=== PATIENT | male | born 1955 | race Caucasian/White ===

== ENCOUNTER 2023-03-14 18:47 | Observation (INO) | payer MEDICARE, BC, SELFPAY ==
[2023-03-14 18:49] VITALS: BP 171/87; PULSE 94; RESP 18; TEMP 36.8; O2SAT 95; BMI 31.6
--- NOTE | 2023-03-14 19:26 | CT_ITS ---
The [address] [address] Patient Name: TAYLOR MCCLELLAN MRN: [id number] date: 1955 Sex: M Assigned Patient Location: ER Current Patient Location: ED.MAIN Accession/Order Number: [id number] Exam Date: 03/14/2023 20:00 Report Date: 03/14/2023 20:33 At the request of: SOLOMON HUIZAR Procedure: CT lumbar spine wo con EXAM: CT scan of the lumbar spine without contrast. Dose reduction technique used: Automated exposure control and/or adjustment of the mA and/or kV according to patient size and/or use of iterative reconstruction technique. REASON FOR EXAM: weakness COMPARISON: CT scan dated 01/17/2023 FINDINGS: No lumbar spine fractures. Spinal canal catheter fragment or wire. L4-5 right-sided posterior swetha and pedicle screw fusion, hardware is intact. Minimal grade 1 retrolisthesis of L5 on S1. Degenerative changes throughout the lumbar spine without moderate or high-grade spinal canal stenoses. Right L4-5 and L5-S1 moderate neural foraminal stenoses. Remainder unremarkable. IMPRESSION: No acute lumbar spine abnormalities. Electronically authenticated by: SCHUYLER RIVERA Date: 03/14/2023 20:33
[2023-03-14 19:44] LABS: Basophils Absolute Auto 0.1 10^3/uL (0.0-0.1); Basophils Percent Auto 1.4 % (0.2-2.0); Eosinophils Absolute Auto 0.1 10^3/uL (0.0-0.7); Eosinophils Percent Auto 1.8 % (0.9-7.0); Hematocrit 43.5 % (42.0-54.0); Hemoglobin 14.3 g/dL (14.0-18.0); Immature Granulocytes Abs Auto 0.12 10^3/uL (0.00-0.03); Immature Granulocytes Pct Auto 1.5 % (0.0-0.5); Lymphocytes Absolute Auto 2.5 10^3/uL (1.2-3.8); Mean Corpuscular HGB Conc 32.9 g/dL (29.9-35.2); Mean Corpuscular Hemoglobin 29.1 pg (25.9-34.0); Mean Corpuscular Volume 88.4 fL (80.0-94.0); Mean Platelet Volume 11.1 fL (9.5-13.5); Monocytes Absolute Auto 0.8 10^3/uL (0.3-0.8); Monocytes Percent Auto 9.5 % (1.7-12.0); Neutrophils Absolute Auto 4.4 10^3/uL (1.4-6.5); Neutrophils Percent Auto 54.8 % (43.0-75.0); Platelet Count 284 10^3/uL (150-450); Red Blood Count 4.92 10^6/uL (4.70-6.10); Red Cell Distribution Width 13.9 % (11.0-15.0)
[2023-03-14] MEDS: 0.9 % SODIUM CHLORIDE 1,000 ML 1000 ML IV (19:56)
[2023-03-14 20:09] LABS: Alanine Aminotransferase 16 U/L (16-63); Albumin Globulin Ratio 0.8; Albumin Level 3.6 g/dL (3.4-5.0); Alkaline Phosphatase 67 U/L (46-116); Anion Gap 13.1; Aspartate Amino Transferase 17 U/L (15-37); BUN Creatinine Ratio 11.9; Bilirubin Total 0.3 mg/dL (0.2-1.0); Calcium 8.9 mg/dL (8.5-10.1); Chloride 106 mmol/L (98-107); Estimated GFR (African America >60 (>=60); Estimated GFR (Non-African Ame 53 (>=60); Globulin 4.7 g/dL; Glucose 128 mg/dL (74-106); Potassium 4.1 mmol/L (3.5-5.1); Sodium 139 mmol/L (136-145); Total Protein 8.3 g/dL (6.4-8.2)
[2023-03-14 20:30] VITALS: BP 150/97; PULSE 86; RESP 18; O2SAT 97
--- NOTE | 2023-03-14 20:49 | ED_ITS ---
HPI - General Adult General Chief complaint: Back Pain/Injury Stated complaint: BACK PAIN Time Seen by Provider: 03/14/23 19:00 Source: patient Mode of arrival: ambulance Limitations: no limitations History of Present Illness HPI narrative: 67-year-old male presents here with chief complaint of chronic low back pain. He is been seen here multiple times for this in the past. He states hes been walking home with his walker and losing his balance due to weakness. He is brought here by squad. He is tearful. He states his was put in a correction and he's been unable to get any pain medication from his physician. He denies any new injury or trauma but admits to falling several times a day. He is alert and oriented. family members are concerned because he's talked about suicidal ideation. He denies any suicidal ideation to me here today. Patient's is in a correction when he seven unable to care for himself and states been falling. Related Data Home Medications Medication Instructions Recorded Confirmed amitriptyline 50 mg tablet 50 mg PO .qhs 03/14/23 03/14/23 aspirin 81 mg capsule 81 mg PO DAILY 03/14/23 03/14/23 atorvastatin 40 mg tablet mg 03/14/23 brexpiprazole 3 mg tablet (Rexulti) 3 mg PO DAILY 03/14/23 03/14/23 bupropion HCl 150 mg 24 hr tablet, 150 mg PO QDAY 03/14/23 03/14/23 extended release carvedilol 12.5 mg tablet (Coreg) 12.5 mg PO BID 03/14/23 03/14/23 celecoxib 200 mg capsule (Celebrex) 200 mg PO DAILY 03/14/23 03/14/23 clopidogrel 75 mg tablet 75 mg PO QDAY 03/14/23 03/14/23 hydralazine 25 mg tablet 25 mg PO Q8H 03/14/23 03/14/23 lamotrigine 100 mg tablet 200 mg PO QDAY 03/14/23 03/14/23 Allergies Allergy/AdvReac Type Severity Reaction Status Date / Time No Known Drug Allergies Allergy Verified 03/14/23 18:52 Review of Systems ROS Narrative All Systems are negative except as noted/marked.All systems reviewed and otherwise negative Exam Narrative Exam Narrative: Nurses note and vital signs reviewed and patient is not hypoxic. General: The patient appears well and in no apparent distress. Patient is resting comfortably on cart. Skin: Warm, dry, no pallor noted. There is no rash noted. Head: Normocephalic, atraumatic Eye: Normal conjunctiva, no drainage, EOMI. PERRL Ears, Nose, Mouth, and Throat: oral mucosa is moist. Nares patent. Mouth without vesicles. Ear canals patent. Tm's without Erythema Cardiovascular: Regular Rate and Rhythm Respiratory: Patient is in no distress, no accessory muscle use, lungs are clear to auscultation, no wheezing, rales or rhonchi Back: No acute pain to palpation lower lumbar area non-tender, no CVA tenderness bilaterally to percussion. : Normal rectal tone GI: Normal bowel sounds, no tenderness to palpation, no masses appreciated. No rebound, guarding, or rigidity noted. Musculoskeletal: Four out of five bilateral lower extremity strength, no calf pain or tenderness, no swelling. The patient has no evidence of calf tenderness, no pitting edema, symmetrical pulses noted bilaterally Neurological: A&O x4, normal speech Psychiatric: Cooperative Constitutional Vital Signs - 24 hr 03/14/23 18:49 03/14/23 20:30 Temperature 98.2 F Pulse Rate [Monitor] 94 H 86 Respiratory Rate 18 18 Blood Pressure [Left Arm] 171/87 H 150/97 H Pulse Oximetry 95 97 Oxygen Delivery Method Room Air Room Air Course Vital Signs Vital signs: Vital Signs Temperature 98.2 F 03/14/23 18:49 Pulse Rate 94 H 03/14/23 18:49 Respiratory Rate 18 03/14/23 18:49 Blood Pressure 171/87 H 03/14/23 18:49 Pulse Oximetry 95 03/14/23 18:49 Oxygen Delivery Method Room Air 03/14/23 18:49 Temperature 98.2 F 03/14/23 18:49 Pulse Rate 86 03/14/23 20:30 Respiratory Rate 18 03/14/23 20:30 Blood Pressure 150/97 H 03/14/23 20:30 Pulse Oximetry 97 03/14/23 20:30 Oxygen Delivery Method Room Air 03/14/23 20:30 Medical Decision Making MDM Narrative Medical decision making narrative: Patient presented here with a chief complaint of increased falls at home arrived by squad for chief complaint lower back pain. He states he's been unable to get any pain medication from his physicians. ooarrs report shows no new narcotic medication since November. He is a score of three seventy. Patient presented here with chief complaint of weakness multiple falls while at home by himself. Family members are concerned that he said increased falls at home and also increased depression. Patient denies depression here to see evening. CT scan lower lumbar area shows degenerative changes. Patient had good rectal tone no signs of cauda equina here. Due to the fact the patient had multiple falls at home alone he will be admitted to the hospital. We did also talk about rehab facility for him or correction facility until he is stronger. Patient agrees with plan of care. Differential Diagnosis Differential Diagnosis: Falls, weakness, cauda equina, chronic exacerbation of low back pain Medical Records Medical records reviewed: Yes I reviewed the patient's medical records Lab Data Lab results reviewed: Yes I reviewed the patient's lab results Labs: Lab Results 03/14/23 Range/Units 19:25 WBC 8.0 (4.0-11.0) 10^3/uL RBC 4.92 (4.70-6.10) 10^6/uL Hgb 14.3 (14.0-18.0) g/dL Hct 43.5 (42.0-54.0) % MCV 88.4 (80.0-94.0) fL MCH 29.1 (25.9-34.0) pg MCHC 32.9 (29.9-35.2) g/dL RDW 13.9 (11.0-15.0) % Plt Count 284 (150-450) 10^3/uL MPV 11.1 (9.5-13.5) fL Neut % (Auto) 54.8 (43.0-75.0) % Lymph % (Auto) 31.0 (20.5-60.0) % [place] % (Auto) 9.5 (1.7-12.0) % Eos % (Auto) 1.8 (0.9-7.0) % Baso % (Auto) 1.4 (0.2-2.0) % Neut # (Auto) 4.4 (1.4-6.5) 10^3/uL Lymph # (Auto) 2.5 (1.2-3.8) 10^3/uL [place] # (Auto) 0.8 (0.3-0.8) 10^3/uL Eos # (Auto) 0.1 (0.0-0.7) 10^3/uL Baso # (Auto) 0.1 (0.0-0.1) 10^3/uL Abs Immat Gran (auto) 0.12 H (0.00-0.03) 10^3/uL Imm/Tot Granulo (auto) 1.5 H (0.0-0.5) % Sodium 139 (136-145) mmol/L Potassium 4.1 (3.5-5.1) mmol/L Chloride 106 (98-107) mmol/L Carbon Dioxide 24.0 (21.0-32.0) mmol/L Anion Gap 13.1 BUN 16.0 (7.0-18.0) mg/dL Creatinine 1.34 H (0.70-1.30) mg/dL Est GFR ( Amer) >60 (>=60) Est GFR (Non-Af Amer) 53 L (>=60) BUN/Creatinine Ratio 11.9 Glucose 128 H (74-106) mg/dL Calcium 8.9 (8.5-10.1) mg/dL Total Bilirubin 0.3 (0.2-1.0) mg/dL AST 17 (15-37) U/L ALT 16 (16-63) U/L Alkaline Phosphatase 67 (46-116) U/L Total Protein 8.3 H (6.4-8.2) g/dL Albumin 3.6 (3.4-5.0) g/dL Globulin 4.7 g/dL Albumin/Globulin Ratio 0.8 Discharge Plan Discharge Chief Complaint: Back Pain/Injury Clinical Impression: Sciatica, Strain of lumbar region, Fall at home, Weakness Patient Disposition: Admitted as Observation Time of Disposition Decision: 21:18 Condition: Fair
[2023-03-14 22:12] VITALS: BP 140/70; PULSE 86; RESP 16; TEMP 36.9; O2SAT 96
[2023-03-14 22:35] VITALS: BP 148/81; PULSE 87; RESP 16; TEMP 36.8; O2SAT 94; BMI 30.9
--- NOTE | 2023-03-14 23:43 | W.PM.TELEPN ---
Progress Note: Subjective Subjective Interval history: CC: Frequent falls, gait instability HPI: This is a 67 years old white male who presents with above complaints. Patient has known chronic low back pain due to spinal stenosis. He has had surgeries in the past. He has been in this emergency room multiple times for the similar problems. Patient stating that he falls approximately once or twice every week. He is supposed to use a walker but at times forgets to take it. Patient stating that he has been walking at home this time with a walker and, because of generalized weakness, his legs could not longer carry him and he fell. He has been brought in by EMS. Patient was tearful. He is complaining on back pain. He stating that his provider would not give him any pain medications. Patient's family member called in because of concern for depression and possible suicidal ideation. In the emergency room and with conversation with me patient denies any suicidal ideation. He does not have any concrete plan to end his life. Patient is at skilled nursing. Patient unable to care for himself. Exam Narrative Exam Narrative: Physical Exam: Not in distress, pleasant, lucid, cooperative, Head - atraumatic, eyes - pupils equal, round, reactive to light, extra ocular movement intact, MMM Neck - supple, thyroid not enlarged, LN not palpated Lungs - clear to auscultation, no dullness on percussion CVS - heart sounds S1, S2, no additional murmurs gallop, regular rate and rhythm Gastrointestinal?abdomen is soft, non-tender, non-distended, no organomegaly, positive bowel sounds Extremities no clubbing, cyanosis or edema Neurological?cranial nerve II?XII grossly intact, no meningeal signs, no cerebellar signs, no sensory deficit Musculoskeletal - joints, no effusions, ROM preserved Dermatological - the skin dry, warm, no rashes Psychiatric?patient is AAO X3, patient has flat affect Constitutional Vital Signs - 24 hr 03/14/23 18:49 03/14/23 20:30 03/14/23 22:12 Temperature 98.2 F 98.4 F Pulse Rate Pulse Rate [Monitor] 94 H 86 86 Respiratory Rate 18 18 16 Blood Pressure [Left Arm] 171/87 H 150/97 H 140/70 H Pulse Oximetry 95 97 96 Oxygen Delivery Method Room Air Room Air Room Air 03/14/23 22:35 03/14/23 22:35 03/14/23 22:35 Temperature 98.3 F 98.3 F Pulse Rate 87 87 Pulse Rate [Monitor] Respiratory Rate 16 16 Blood Pressure [Left Arm] 148/81 H 148/81 H Pulse Oximetry 94 L 94 L Oxygen Delivery Method Room Air Room Air Room Air Progress Note: Objective Labs Labs: Short CBC 03/14/23 Range/Units 19:25 WBC 8.0 (4.0-11.0) 10^3/uL Hgb 14.3 (14.0-18.0) g/dL Hct 43.5 (42.0-54.0) % Plt Count 284 (150-450) 10^3/uL BMP 03/14/23 19:25 Sodium 139 Potassium 4.1 Chloride 106 Carbon Dioxide 24.0 BUN 16.0 Creatinine 1.34 H Glucose 128 H Calcium 8.9 Liver Function 03/14/23 Range/Units 19:25 Total Bilirubin 0.3 (0.2-1.0) mg/dL AST 17 (15-37) U/L ALT 16 (16-63) U/L Alkaline Phosphatase 67 (46-116) U/L Albumin 3.6 (3.4-5.0) g/dL Progress Note: A&P Assessment and Plan (1) Strain of lumbar region: Assessment and Plan: I am going to monitor this patient on medical floor. Symptoms control as needed. Currently denies a lot of pain in his back. (2) Fall at home: Assessment and Plan: I ordered fall precautions. I ordered evaluation by physical and Occupational Therapy. Patient is to use walker at all the time. (3) Weakness: Assessment and Plan: Most probably related to above. Follow-up with physical therapist for disposition determination (4) Depression: Assessment and Plan: Patient already on I&D at the present. Patient might benefit from follow-up with a psychiatrist for medications adjustment. (5) CAD (coronary artery disease): Assessment and Plan: Currently pain-free. Continue with Plavix. (6) Hypertension: Assessment and Plan: Blood pressure appears to be well controlled. Resume home regiment (7) High cholesterol: Assessment and Plan: Continue with home dose of statin, defer to outpatient management Telemedicine Attestation Telemedicine Attestation I conducted this encounter from [[place]] via secure live, [id number] video conference with the patient, located at [facility] with [recurrent falls]. Prior to the interview, the risks and benefits of telemedicine were discussed with the patient and verbal consent was obtained.
--- NOTE | 2023-03-14 23:49 | W.PM.TELEPN ---
Progress Note: Subjective Subjective Interval history: CC: Frequent falls, gait instability HPI: This is a 67 years old white male who presents with above complaints. Patient has known chronic low back pain due to spinal stenosis. He has had surgeries in the past. He has been in this emergency room multiple times for the similar problems. Patient stating that he falls approximately once or twice every week. He is supposed to use a walker but at times forgets to take it. Patient stating that he has been walking at home this time with a walker and, because of generalized weakness, his legs could not longer carry him and he fell. He has been brought in by EMS. Patient was tearful. He is complaining on back pain. He stating that his provider would not give him any pain medications. Patient's family member called in because of concern for depression and possible suicidal ideation. In the emergency room and with conversation with me patient denies any suicidal ideation. He does not have any concrete plan to end his life. Patient is at [facility]. Patient unable to care for himself. Exam Constitutional Vital Signs - 24 hr 03/14/23 18:49 03/14/23 20:30 03/14/23 22:12 Temperature 98.2 F 98.4 F Pulse Rate Pulse Rate [Monitor] 94 H 86 86 Respiratory Rate 18 18 16 Blood Pressure [Left Arm] 171/87 H 150/97 H 140/70 H Pulse Oximetry 95 97 96 Oxygen Delivery Method Room Air Room Air Room Air 03/14/23 22:35 03/14/23 22:35 03/14/23 22:35 Temperature 98.3 F 98.3 F Pulse Rate 87 87 Pulse Rate [Monitor] Respiratory Rate 16 16 Blood Pressure [Left Arm] 148/81 H 148/81 H Pulse Oximetry 94 L 94 L Oxygen Delivery Method Room Air Room Air Room Air Progress Note: Objective Labs Labs: Short CBC 03/14/23 Range/Units 19:25 WBC 8.0 (4.0-11.0) 10^3/uL Hgb 14.3 (14.0-18.0) g/dL Hct 43.5 (42.0-54.0) % Plt Count 284 (150-450) 10^3/uL BMP 03/14/23 19:25 Sodium 139 Potassium 4.1 Chloride 106 Carbon Dioxide 24.0 BUN 16.0 Creatinine 1.34 H Glucose 128 H Calcium 8.9 Liver Function 03/14/23 Range/Units 19:25 Total Bilirubin 0.3 (0.2-1.0) mg/dL AST 17 (15-37) U/L ALT 16 (16-63) U/L Alkaline Phosphatase 67 (46-116) U/L Albumin 3.6 (3.4-5.0) g/dL Progress Note: A&P Assessment and Plan (1) Strain of lumbar region: (2) Fall at home: (3) Weakness: (4) Depression: (5) CAD (coronary artery disease): (6) Hypertension: (7) High cholesterol: Telemedicine Attestation Telemedicine Attestation I conducted this encounter from [] via secure live, [id number] video conference with the patient, located at [facility] with []. Prior to the interview, the risks and benefits of telemedicine were discussed with the patient and verbal consent was obtained. As the provider for the telehealth service, I attest that I introduced myself to the patient, provided my credentials, disclosed by location and determined that based on a review of the patient's chart and discussion with members of the patient's treatment team, telemedicine via real-time, 2 way, and interactive audio and video platform is an appropriate and effective means of providing the service. ?The patient and I mutually agree this visit is appropriate for telemedicine. ?The virtual encounter was taken place from? [place], [place]. ?The encounter took approximately 35 minutes. ?The nurse was present during the entire time and I was able to move the stethoscope in appropriate directions. ?The patient was evaluated at the Hospital ? Portions of this note may be dictated using [facility] I[facility] Been voice recognition software. Variances in spelling and vocabulary are possible and unintentional. Not all errors may be caught and/or corrected. Please notify the author if any discrepancies are noted and/or if the meaning of any statement is unclear.? ? Patient verbally consented for treatment via video visit with patient currently located at [facility] and provider located in [place].
[2023-03-15] MEDS: ACETAMINOPHEN 325 MG TABLET 650 MG PO (00:03)
[2023-03-15] MEDS: HYDRALAZINE HCL 25 MG TABLET PO ×2 (00:04→08:12)
[2023-03-15] MEDS: AMITRIPTYLINE HCL 50 MG TABLET PO (00:04)
--- NOTE | 2023-03-15 00:57 | PC.NURSE ---
Pt resting in bed w/o any s/s of pain, when scientific writer leaves room pt call out requesting stronger pain med. Encouraged non harden pain methods for relief.
[2023-03-15 04:21] VITALS: BP 150/82; PULSE 94; RESP 16; TEMP 36.3; O2SAT 94
[2023-03-15 05:30] LABS: Basophils Percent Auto 0.5 % (0.2-2.0); Hematocrit 43.5 % (42.0-54.0); Hemoglobin 14.2 g/dL (14.0-18.0); Immature Granulocytes Abs Auto 0.01 10^3/uL (0.00-0.03); Immature Granulocytes Pct Auto 0.2 % (0.0-0.5); Lymphocytes Absolute Auto 1.2 10^3/uL (1.2-3.8); Lymphocytes Percent Auto 18.8 % (20.5-60.0); Mean Corpuscular HGB Conc 32.6 g/dL (29.9-35.2); Mean Corpuscular Volume 88.8 fL (80.0-94.0); Mean Platelet Volume 12.1 fL (9.5-13.5); Monocytes Absolute Auto 0.1 10^3/uL (0.3-0.8); Monocytes Percent Auto 1.8 % (1.7-12.0); Neutrophils Absolute Auto 4.9 10^3/uL (1.4-6.5); Neutrophils Percent Auto 78.7 % (43.0-75.0); Platelet Count 277 10^3/uL (150-450); Red Cell Distribution Width 13.8 % (11.0-15.0); White Blood Count 6.2 10^3/uL (4.0-11.0)
[2023-03-15 06:02] LABS: Alanine Aminotransferase 17 U/L (16-63); Albumin Globulin Ratio 0.9; Albumin Level 3.6 g/dL (3.4-5.0); Alkaline Phosphatase 68 U/L (46-116); Anion Gap 14.8; Aspartate Amino Transferase 14 U/L (15-37); BUN Creatinine Ratio 12.3; Bilirubin Total 0.3 mg/dL (0.2-1.0); Carbon Dioxide 21.3 mmol/L (21.0-32.0); Chloride 107 mmol/L (98-107); Estimated GFR (African America >60 (>=60); Estimated GFR (Non-African Ame 55 (>=60); Globulin 4.1 g/dL; Glucose 167 mg/dL (74-106); Potassium 4.1 mmol/L (3.5-5.1); Sodium 139 mmol/L (136-145); Total Protein 7.7 g/dL (6.4-8.2)
--- NOTE | 2023-03-15 07:56 | P.HP_ITS ---
H&P: HPI History of Present Illness Chief complaint: BACK PAIN-FALL AT HOME AND WEAKNESS Narrative: Patient was history of chronic low back pain presented to the emergency room with increasing low back pain resulting in falls. Admitted overnight for observation Review of Systems ROS Status of ROS 10 or more systems reviewed and unremarkable except as noted in history and below [facility] Medical History (Updated 03/14/23 @ 23:38 by Christiana Hou) Surgical History (Updated 03/14/23 @ 23:37 by Christiana Hou) Family History (Updated 03/14/23 @ 23:00 by Taniya Mercado) Mother Family history of myocardial infarction Social History (Updated 03/14/23 @ 23:05 by Taniya Mercado) Within the past year, how often did you have a drink containing alcohol: never Score interpretation: A score less than 4 is consistent with normal alcohol consumption. Smoking status: Current every day smoker What tobacco products do you use: cigarettes Pack-years instructions: Please document either packs per day or cigarettes per day in order for pack years to calculate correctly. If using both packs per day and cigarettes per day, please make sure that they denote the same thing. If they differ, pack- years will calculate based on packs per day. 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 Known occupational exposures/hazards: No Highest level of school completed/degree received: some college, no degree Do you want help with school or training: No Are you now , , , , never or living with a partner: In a typical week, how many times do you talk on the telephone with family, friends, or neighbors: never How often do you get together with friends or relatives: never How often do you attend hoahaoism or temple services: never Do you belong to any clubs or organizations such as hoahaoism groups unions, fraternal or athletic groups, or school groups: no Total score: 1 Score interpretation: A score of less than or equal to 1 indicates the most socially isolated. Little interest or pleasure in doing things: nearly every day Feeling down, depressed, or hopeless: several days Feel stressed/tense/nervous/anxious/difficulty sleeping: very much Life stressors: recent of family or friend Life stressor details: mother and step father a year ago Due to disability, difficulty making decisions: No Do you think of yourself as: straight/heterosexual Gender Identity: male Meds Home Medications and Allergies Home Medications Medication Instructions Recorded Confirmed Type amitriptyline 50 mg tablet 50 mg PO .qhs 03/14/23 03/14/23 History aspirin 81 mg capsule 81 mg PO DAILY 03/14/23 03/14/23 History atorvastatin 40 mg tablet 40 mg PO DAILY 03/14/23 03/14/23 History brexpiprazole 3 mg tablet (Rexulti) 3 mg PO DAILY 03/14/23 03/14/23 History bupropion HCl 150 mg 24 hr tablet, 150 mg PO QDAY 03/14/23 03/14/23 History extended release buspirone 10 mg tablet 10 mg PO BID 03/14/23 03/14/23 History carvedilol 12.5 mg tablet (Coreg) 12.5 mg PO BID 03/14/23 03/14/23 History clopidogrel 75 mg tablet 75 mg PO QDAY 03/14/23 03/14/23 History hydralazine 25 mg tablet 25 mg PO Q8H 03/14/23 03/14/23 History lamotrigine 100 mg tablet 200 mg PO QDAY 03/14/23 03/14/23 History Allergies Allergy/AdvReac Type Severity Reaction Status Date / Time No Known Drug Allergies Allergy Verified 03/14/23 18:52 Exam Constitutional Vital Signs - 24 hr 03/14/23 18:49 03/14/23 20:30 03/14/23 22:12 Temperature 98.2 F 98.4 F Pulse Rate Pulse Rate [Monitor] 94 H 86 86 Respiratory Rate 18 18 16 Blood Pressure [Left Arm] 171/87 H 150/97 H 140/70 H Pulse Oximetry 95 97 96 Oxygen Delivery Method Room Air Room Air Room Air 03/14/23 22:35 03/14/23 22:35 03/14/23 22:35 Temperature 98.3 F 98.3 F Pulse Rate 87 87 Pulse Rate [Monitor] Respiratory Rate 16 16 Blood Pressure [Left Arm] 148/81 H 148/81 H Pulse Oximetry 94 L 94 L Oxygen Delivery Method Room Air Room Air Room Air 03/15/23 04:21 Temperature 97.4 F L Pulse Rate 94 H Pulse Rate [Monitor] Respiratory Rate 16 Blood Pressure [Left Arm] 150/82 H Pulse Oximetry 94 L Oxygen Delivery Method Room Air General appearance: cooperative and comfortable Chest Common normals: inspection of chest normal Respiratory Common normals: normal respiratory effort, no use of accessory muscles and clear to auscultation bilaterally Cardio Common normals: regular rate, regular rhythm, no gallops and no murmurs GI Common normals: Normal to inspection, nondistended, normoactive bowel sounds present Extremity Common normals: normal to inspection Other: Examination of the lumbar spine shows no areas of tenderness, negative straight leg raise -able to raise right leg and with dorsiflexion of the foot did not have any increase in his pain Psych Mood and affect: depressed mood Insight: poor Judgement: poor Results Labs Labs: Short CBC 03/14/23 03/14/23 Range/Units 04:15 19:25 WBC 6.2 8.0 (4.0-11.0) 10^3/uL Hgb 14.2 14.3 (14.0-18.0) g/dL Hct 43.5 43.5 (42.0-54.0) % Plt Count 277 284 (150-450) 10^3/uL BMP 03/14/23 03/14/23 04:15 19:25 Sodium 139 139 Potassium 4.1 4.1 Chloride 107 106 Carbon Dioxide 21.3 24.0 BUN 16.0 16.0 Creatinine 1.30 1.34 H Glucose 167 H 128 H Calcium 9.0 8.9 Liver Function 03/14/23 03/14/23 Range/Units 04:15 19:25 Total Bilirubin 0.3 0.3 (0.2-1.0) mg/dL AST 14 L 17 (15-37) U/L ALT 17 16 (16-63) U/L Alkaline Phosphatase 68 67 (46-116) U/L Albumin 3.6 3.6 (3.4-5.0) g/dL Assessment and Plan Assessment and Plan (1) Strain of lumbar region: (2) Fall at home: (3) Weakness: (4) Depression: (5) CAD (coronary artery disease): (6) Hypertension: (7) High cholesterol: (8) Sciatica: Plan Physical therapy to evaluate and treat this morning therapy to evaluate and treat this morning, try patient on IV Toradol and steroids and Norflex. If better this afternoon will discharged home in improving condition. Medications see list. Follow-up with me in the office as needed, if unable to improve this afternoon may need, rehab family likely to pick [facility] as that is where his is at
[2023-03-15] MEDS: CLOPIDOGREL BISULFATE 75 MG TABLET PO (08:10)
[2023-03-15] MEDS: LAMOTRIGINE 100 MG TABLET 200 MG PO (08:10)
[2023-03-15] MEDS: ATORVASTATIN CALCIUM 40 MG TABLET PO (08:11)
[2023-03-15] MEDS: ASPIRIN 81 MG TABLET.DR PO (08:11)
[2023-03-15] MEDS: BUPROPION HCL 150 MG XL TABLET 24H PO (08:12)
[2023-03-15] MEDS: DEXAMETHASONE SODIUM PHOSPHATE 4 MG/ML VIAL IV (08:12)
[2023-03-15] MEDS: CARVEDILOL 12.5 MG TABLET PO (08:12)
[2023-03-15] MEDS: BUSPIRONE HCL 10 MG TABLET PO (08:12)
[2023-03-15] MEDS: ORPHENADRINE 60 MG/ 2 ML VIAL 30 MG IV (08:12)
[2023-03-15] MEDS: KETOROLAC TROMETHAMINE 30 MG/ML VIAL 15 MG IVP (08:13)
[2023-03-15] MEDS: CELECOXIB 200 MG CAPSULE PO (08:19)
--- NOTE | 2023-03-15 10:46 | SWNOTE1 ---
ISABELLA stopped in to see pt, case management in room as well. Case management completed assessment. Pt would like to use [facility] at discharge. Pt's is still at nursing facility for rehab. Pt is at home by himself, only has 3 stairs to go up. Pt has walker at home if needed. ISABELLA updated doctor, referral sent to [facility].
--- NOTE | 2023-03-15 11:25 | CM.NOTE ---
Discussed discharge planning with pt, pt ok with HH. Pt would like to go with [facility], he has had them in the past.
--- NOTE | 2023-03-15 11:53 | CM.NOTE ---
Medicare Outpatient Observation Notice discussed with pt, pt verbalizes understanding and signs paper. Original given to pt and copy placed on pt's chart.
--- NOTE | 2023-03-15 11:53 | SWNOTE1 ---
SW received phone call from [facility] and they are able to accept. They have received all discharge orders. SW to let pt know.
--- NOTE | 2023-03-15 13:00 | SWNOTE1 ---
ISABELLA spoke with Kathya the nurse and she has tried to call family but nobody is available to transport him home. SW and nursing decided on trips for transport. SW called trips and they will be here between 1:00-1:30 to transport pt home. SW let nursing and pt know.
--- NOTE | 2023-03-19 13:12 | CM.DCFOLLOWU ---
Person spoke with: patient How are you feeling? My back still hurts How is your pain? My back still hurts . Pt. did not give a numeric rating. Did you understand your discharge instructions? yes Do you have any questions about your discharge instructions? no Were you given any prescriptions at discharge? yes Were you able to get your prescriptions filled? Yes I got them filled but have not started taking. Encouraged the patient to take the medications as prescribed and that could help with pain. The patient voiced understanding. Do you understand how to take your medications as ordered? Yes. But patient has not been taking. See above. Do you have any questions about your follow up appointment and do you plan to keep your follow up appointment? I had to cancel my follow up with Dr. Jiang because my broke her foot. I encouraged the patient to get that appointment rescheduled, especially due to the fact he is still complaining of pain. The patient voiced understanding. Is there anything else that you would like to discuss? No thank you. Questions/Comments/Concerns/Other: n/a
== END 2023-03-15 13:01 | disposition home or self-care (01) ==
LOC: ER 21:20 → MS 22:32
PROVIDERS: Physician Assistant; Admitting Provider Internal Medicine; Emergency Provider Internal Medicine; PCP Family Medicine; Visit Provider Family Medicine
DX: S39.012A Strain of muscle, fascia and tendon of lower back, initial encounter (principal); R53.1 Weakness; F32.A Depression, unspecified; I10 Essential (primary) hypertension; E78.00 Pure hypercholesterolemia, unspecified; M48.061 Spinal stenosis, lumbar region without neurogenic claudication; G89.29 Other chronic pain; M54.40 Lumbago with sciatica, unspecified side; I25.10 Atherosclerotic heart disease of native coronary artery without angina pectoris; W19.XXXA Unspecified fall, initial encounter; F17.210 Nicotine dependence, cigarettes, uncomplicated; Z79.82 Long term (current) use of aspirin; Z79.899 Other long term (current) drug therapy
CPT/HCPCS: 36415; 72131; 80053; 81001; 85025; 87086; 96374; 96375; 96376; 97162; 99285; G0378; J1100; Q3014

== ENCOUNTER 2023-04-19 13:46 | Emergency (ER) | payer MEDICARE, BC, SELFPAY ==
[2023-04-19] VITALS (47 sets, daily range): BP systolic 129–166; BP diastolic 66–95; PULSE 80–109; RESP 13–34; TEMP 36.4; O2SAT 94–97; BMI 29.1
--- NOTE | 2023-04-19 14:07 | ED_ITS ---
HPI - Back Pain/Injury General Chief Complaint: Back Pain/Injury Stated Complaint: BACK PAIN AND SUICIDAL Time Seen by Provider: 04/19/23 13:50 Source: patient and family Mode of arrival: Wheelchair History of Present Illness HPI Narrative: Patient brought into the emergency department by family with a complaint of chronic low back pain. Patient has a history of spinal stenosis had spinal stimulators has seen pain management and then on narcotics in the past and nothing has worked for his chronic back pain. He is currently started on Celebrex by Dr. Jiang. Family states the patient's is in a assisted and he is very codependent of her. He has been driving himself to the assisted 3-5 times a day to see his and they think the bumps in the road could have exacerbated his low back pain because the Celebrex is not helping anymore. Pain is worse on the right side and radiates down his right lower extremity. He denies any new weakness denies any new urinary or bowel incontinence, retention. Son states the patient went to see his today and he just stood there at the bed side and there at her for 3 minutes and left. They're concerned because he did not tell her anything but he has been talking about suicidal ideation, wanting to . He does not have an actual plan family thinks he is on a down trend neurologically and want him to be evaluated. Patient states. 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 Has been hospitalized last year to [address] [place] [address]. Family states they called mental health applying prior to coming to the emergency department. They deny any recent fall, or injury. Denies any fever. Denies any headache, chest pain, shortness of breath. Patient states he has crescendo suicide thoughts and ideation in the last week. He denies an actual plan. he denies hallucination visual or auditory. MD elicited complaint: Reports back pain Related Data Home Medications Medication Instructions Recorded Confirmed amitriptyline 50 mg tablet 100 mg PO .qhs 03/14/23 04/19/23 aspirin 81 mg capsule 81 mg PO DAILY 03/14/23 04/19/23 atorvastatin 40 mg tablet 40 mg PO DAILY 03/14/23 04/19/23 brexpiprazole 3 mg tablet (Rexulti) 3 mg PO DAILY 03/14/23 04/19/23 bupropion HCl 150 mg 24 hr tablet, 150 mg PO QDAY 03/14/23 04/19/23 extended release buspirone 10 mg tablet 10 mg PO BID 03/14/23 04/19/23 carvedilol 12.5 mg tablet (Coreg) 12.5 mg PO BID 03/14/23 04/19/23 clopidogrel 75 mg tablet 75 mg PO QDAY 03/14/23 04/19/23 hydralazine 25 mg tablet 25 mg PO Q8H 03/14/23 04/19/23 lamotrigine 100 mg tablet 200 mg PO QDAY 03/14/23 04/19/23 bupropion HCl 300 mg 24 hr tablet, 300 mg PO DAILY 04/19/23 04/19/23 extended release gabapentin 300 mg capsule mg 04/19/23 Previous Rx's Medication Instructions Recorded celecoxib 200 mg capsule 200 mg PO DAILY #30 caps 03/15/23 Allergies Allergy/AdvReac Type Severity Reaction Status Date / Time No Known Drug Allergies Allergy Verified 04/19/23 13:59 Review of Systems ROS Status of ROS 10 or more systems reviewed and unremarkable except as noted in history and below [facility] Medical History (Updated 04/19/23 @ 18:50 by Yudi Eldridge MD) Surgical History (Updated 03/14/23 @ 23:37 by Christiana Hou) Family History (Updated 03/14/23 @ 23:00 by Taniya Mercado) Mother Family history of myocardial infarction Social History (Updated 03/14/23 @ 23:05 by Taniya Mercado) Within the past year, how often did you have a drink containing alcohol: never Score interpretation: A score less than 4 is consistent with normal alcohol consumption. Smoking status: Current every day smoker What tobacco products do you use: cigarettes Pack-years instructions: Please document either packs per day or cigarettes per day in order for pack years to calculate correctly. If using both packs per day and cigarettes per day, please make sure that they denote the same thing. If they differ, pack- years will calculate based on packs per day. 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 Known occupational exposures/hazards: No Highest level of school completed/degree received: some college, no degree Do you want help with school or training: No Are you now , , , , never or living with a partner: In a typical week, how many times do you talk on the telephone with family, friends, or neighbors: never How often do you get together with friends or relatives: never How often do you attend episcopal or yarsanism services: never Do you belong to any clubs or organizations such as episcopal groups unions, [employer] or athletic groups, or school groups: no Total score: 1 Score interpretation: A score of less than or equal to 1 indicates the most socially isolated. Little interest or pleasure in doing things: nearly every day Feeling down, depressed, or hopeless: several days Feel stressed/tense/nervous/anxious/difficulty sleeping: very much Life stressors: recent of family or friend Life stressor details: mother and step father a year ago Due to disability, difficulty making decisions: No Do you think of yourself as: straight/heterosexual Gender Identity: male Exam Narrative Exam Narrative: Nurses notes and vital signs reviewed and patient is not hypoxic. General: Nontoxic, Elderly, frail, chronically ill, no apparent distress. Skin: Warm, dry, no pallor noted. No Rash Head: Normocephalic, atraumatic. Neck: Supple, non-tender. Eye: Pupils are equal, round and EOMI. No scleral icterus. Ears, Nose, Mouth, and Throat: TM clear, no posterior oropharynx erythema or nasal mucosal hypertrophy, uvula is mid-line Oral mucosa is moist Cardiovascular: Regular Rate and Rhythm without murmur, gallop or rub. Respiratory: No accessory muscle use or respiratory distress. Lungs are clear to auscultation, no wheezing, rales or rhonchi Chest Wall: no tenderness Back: No midline thoracic or lumbar vertebral tenderness. No CVA tenderness Musculoskeletal: normal ROM, no calf or popliteal tenderness, no lower extremity edema/swelling GI: obese, Abdomen is soft, non-distended. Normal bowel sounds. No masses appreciated. No tenderness to palpation. No rebound, guarding, or rigidity noted. Neurological: A&O x4. No cranial nerve dysfunction observed. No truncal ataxia. Moves all extremities. Sensation intact. Psychiatric: Cooperative , depressed, tearful Constitutional Vital Signs, click to edit/add: Last Vital Signs Temp 97.6 F 04/19/23 14:00 Pulse 100 H 04/19/23 14:00 Resp 22 04/19/23 14:00 BP 166/93 H 04/19/23 14:00 Pulse Ox 95 04/19/23 14:00 O2 Del Method Room Air 04/19/23 14:00 Course Vital Signs Vital signs: Vital Signs Temperature 97.6 F 04/19/23 14:00 Pulse Rate 100 H 04/19/23 14:00 Respiratory Rate 22 04/19/23 14:00 Blood Pressure 166/93 H 04/19/23 14:00 Pulse Oximetry 95 04/19/23 14:00 Oxygen Delivery Method Room Air 04/19/23 14:00 Temperature 97.6 F 04/19/23 14:00 Pulse Rate 100 H 04/19/23 14:00 Respiratory Rate 22 04/19/23 14:00 Blood Pressure 166/93 H 04/19/23 14:00 Pulse Oximetry 95 04/19/23 14:00 Oxygen Delivery Method Room Air 04/19/23 14:00 MDM - Back Pain/Injury MDM Narrative Medical decision making narrative: Patient was seen and evaluated. Patient is here for depression and suicidal ideation. Secondary to declining health, his being in a assisted. The patient was admitted Last month with chest pain and back pain. Patient was discharged home. Patient has been off all his narcotic pain medications for a while. He has been taking Celebrex which has been helping except for in the last couple of days. The patient is medically clear for psychiatric evaluation and treatment. He is evaluated by mental health who has pink slip the patient and they're looking for placement. This time the patient will be signed out to Dr. Pina at the end of my shift awaiting psychiatric placement. Patient was given his dose of Celebrex in the emergency department. Medical Records Attestation: I reviewed the patient's medical records. Lab Data Attestation: I reviewed the patient's lab results. Labs: Lab Results 04/19/23 04/19/23 04/19/23 Range/Units 15:00 17:30 18:05 WBC 7.3 (4.0-11.0) 10^3/uL RBC 5.04 (4.70-6.10) 10^6/uL Hgb 14.5 (14.0-18.0) g/dL Hct 43.2 (42.0-54.0) % MCV 85.7 (80.0-94.0) fL MCH 28.8 (25.9-34.0) pg MCHC 33.6 (29.9-35.2) g/dL RDW 14.9 (11.0-15.0) % Plt Count 302 (150-450) 10^3/uL MPV 10.8 (9.5-13.5) fL Neut % (Auto) 66.1 (43.0-75.0) % Lymph % (Auto) 24.5 (20.5-60.0) % Young % (Auto) 7.6 (1.7-12.0) % Eos % (Auto) 0.8 L (0.9-7.0) % Baso % (Auto) 0.7 (0.2-2.0) % Neut # (Auto) 4.8 (1.4-6.5) 10^3/uL Lymph # (Auto) 1.8 (1.2-3.8) 10^3/uL Young # (Auto) 0.6 (0.3-0.8) 10^3/uL Eos # (Auto) 0.1 (0.0-0.7) 10^3/uL Baso # (Auto) 0.1 (0.0-0.1) 10^3/uL Abs Immat Gran (auto) 0.02 (0.00-0.03) 10^3/uL Imm/Tot Granulo (auto) 0.3 (0.0-0.5) % Sodium 139 (136-145) mmol/L Potassium 3.8 (3.5-5.1) mmol/L Chloride 104 (98-107) mmol/L Carbon Dioxide 26.7 (21.0-32.0) mmol/L Anion Gap 12.1 BUN 7.0 (7.0-18.0) mg/dL Creatinine 1.12 (0.70-1.30) mg/dL Est GFR ( Amer) >60 (>=60) Est GFR (Non-Af Amer) >60 (>=60) BUN/Creatinine Ratio 6.2 Glucose 105 (74-106) mg/dL Calcium 8.5 (8.5-10.1) mg/dL Magnesium 2.0 (1.8-2.4) mg/dL Total Bilirubin 0.2 (0.2-1.0) mg/dL AST 10 L (15-37) U/L ALT 14 L (16-63) U/L Alkaline Phosphatase 59 (46-116) U/L Total Protein 7.2 (6.4-8.2) g/dL Albumin 3.3 L (3.4-5.0) g/dL Globulin 3.9 g/dL Albumin/Globulin Ratio 0.8 TSH 0.846 (0.358-3.740) uIU/mL Urine Color Yellow (YELLOW) Urine Clarity Clear (CLEAR) Urine pH 5.5 (5.0-9.0) Ur Specific [place] >=1.030 A (1.005-1.025) Urine Protein Trace (NEG/TRACE) mg/dL Urine Glucose (UA) 250 A (NEGATIVE) mg/dL Urine Ketones Trace A (NEGATIVE) mg/dL Urine Occult Blood Negative (NEGATIVE) Urine Nitrite Negative (NEGATIVE) Urine Bilirubin Small A (NEGATIVE) Urine Urobilinogen 1.0 (0.2-1.0) EU/dL Ur Leukocyte Esterase Negative (NEGATIVE) Salicylates 10.8 (<=19.9) mg/dL Urine Opiates Screen Negative (NEGATIVE) Ur Buprenorphine Scrn Negative (NEGATIVE) Ur Oxycodone Screen Negative (NEGATIVE) Urine Methadone Screen Negative (NEGATIVE) Ur Propoxyphene Screen Negative (NEGATIVE) Acetaminophen <2.0 L (10.0-30.0) ug/mL Ur Barbiturates Screen Negative (NEGATIVE) U Tricyclic Antidepress Negative (NEGATIVE) Ur Phencyclidine Scrn Negative (NEGATIVE) Ur Amphetamines Screen Negative (NEGATIVE) U Methamphetamines Scrn Negative (NEGATIVE) U Benzodiazepines Scrn Negative (NEGATIVE) Urine Cocaine Screen Negative (NEGATIVE) U Cannabinoids Screen Negative (NEGATIVE) Ethanol Quant <3 mg/dL SARS-CoV-2 (PCR) Negative (NEGATIVE) ECG Data Attestation: I personally reviewed and interpreted this ECG as follows: Discharge Plan Discharge Chief Complaint: Back Pain/Injury Clinical Impression: Suicide ideation Patient Disposition: Still a Patient Prescriptions / Home Meds: No Action amitriptyline 50 mg tablet 100 mg PO .qhs Patient Comments: med list taken off bottles and last dose taken from Pt- unsure how reliable clopidogrel 75 mg tablet 75 mg PO QDAY hydralazine 25 mg tablet 25 mg PO Q8H lamotrigine 100 mg tablet 200 mg PO QDAY bupropion HCl 150 mg tablet extended release 24 hr 150 mg PO QDAY Hold Instructions: Doctor's Order Rexulti 3 mg tablet 3 mg PO DAILY carvedilol [Coreg] 12.5 mg tablet 12.5 mg PO BID Rx Instructions: must administer with a meal/food atorvastatin 40 mg tablet 40 mg PO DAILY aspirin 81 mg capsule 81 mg PO DAILY Hold Instructions: pt stopped taking buspirone 10 mg tablet 10 mg PO BID celecoxib 200 mg Capsule 200 mg PO DAILY Qty: 30 11RF bupropion HCl 300 mg tablet extended release 24 hr 300 mg PO DAILY gabapentin 300 mg capsule Hold Instructions: Doctor's Order Referrals: Norbert Jiang MD [Primary Care Provider] - 1 week
--- NOTE | 2023-04-19 14:19 | ECG_ITS ---
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
[2023-04-19 15:18] LABS: Basophils Absolute Auto 0.1 10^3/uL (0.0-0.1); Basophils Percent Auto 0.7 % (0.2-2.0); Eosinophils Absolute Auto 0.1 10^3/uL (0.0-0.7); Eosinophils Percent Auto 0.8 % (0.9-7.0); Hematocrit 43.2 % (42.0-54.0); Hemoglobin 14.5 g/dL (14.0-18.0); Immature Granulocytes Abs Auto 0.02 10^3/uL (0.00-0.03); Immature Granulocytes Pct Auto 0.3 % (0.0-0.5); Lymphocytes Absolute Auto 1.8 10^3/uL (1.2-3.8); Lymphocytes Percent Auto 24.5 % (20.5-60.0); Mean Corpuscular HGB Conc 33.6 g/dL (29.9-35.2); Mean Corpuscular Hemoglobin 28.8 pg (25.9-34.0); Mean Corpuscular Volume 85.7 fL (80.0-94.0); Mean Platelet Volume 10.8 fL (9.5-13.5); Monocytes Absolute Auto 0.6 10^3/uL (0.3-0.8); Monocytes Percent Auto 7.6 % (1.7-12.0); Neutrophils Absolute Auto 4.8 10^3/uL (1.4-6.5); Neutrophils Percent Auto 66.1 % (43.0-75.0); Platelet Count 302 10^3/uL (150-450); Red Blood Count 5.04 10^6/uL (4.70-6.10); Red Cell Distribution Width 14.9 % (11.0-15.0); White Blood Count 7.3 10^3/uL (4.0-11.0)
[2023-04-19 15:28] LABS: Alanine Aminotransferase 14 U/L (16-63); Albumin Globulin Ratio 0.8; Albumin Level 3.3 g/dL (3.4-5.0); Alkaline Phosphatase 59 U/L (46-116); Anion Gap 12.1; Aspartate Amino Transferase 10 U/L (15-37); BUN Creatinine Ratio 6.2; Bilirubin Total 0.2 mg/dL (0.2-1.0); Calcium 8.5 mg/dL (8.5-10.1); Carbon Dioxide 26.7 mmol/L (21.0-32.0); Chloride 104 mmol/L (98-107); Estimated GFR (African America >60 (>=60); Estimated GFR (Non-African Ame >60 (>=60); Globulin 3.9 g/dL; Glucose 105 mg/dL (74-106); Potassium 3.8 mmol/L (3.5-5.1); Salicylate 10.8 mg/dL (<=19.9); Sodium 139 mmol/L (136-145); Total Protein 7.2 g/dL (6.4-8.2)
[2023-04-19 15:32] LABS: Acetaminophen <2.0 ug/mL (10.0-30.0)
[2023-04-19 15:35] LABS: Ethanol <3 mg/dL; Thyroid Stimulating Hormone 0.846 uIU/mL (0.358-3.740)
--- NOTE | 2023-04-19 16:14 | SWNOTE1 ---
SW met with pt to discuss dc needs. Pt is at home by himself, his is at [facility]. He is having a hard time without her. During assessmen with pt he did cry several times. Voiced he missed his and wants her home. Pt did have a nurse in room during assessment as well. Doctor is looking into psych placement at [facility]. SW did ask pt if he had thoughts of hurting himself, he initially stated yes. SW asked if he had a plan and he stated no. Pt then stated he just misses his . SW asked again if he had plans to harm himself and he stated no. Nursing went to get pt's son and daughter in law so SW could speak with them. ISABELLA spoke with son and daughter in law in room with pt. Son is working on getting guardianship of pt and pt's . He has also applied for medicaid for them as well. Pt's son voiced that his mother is not getting much stronger and likely not be able to return home. They are hoping to get pt and placed together somewhere eventually. ISABELLA spoke with them about respit stay for pt at [facility], pt's son is already aware of the cost. SW did let pt's son know if he is not admitted to psych, he would need to have a medical reason to be admitted to floor and need 3 day inpt stay if he qualified in order to go to rehab. Pt's son voiced understanding. At this time pt's son and daughter in law are helping care for pt at home. No needs at this time.
[2023-04-19 17:45] LABS: SARS-CoV-2 Ag NEGATIVE (NEGATIVE)
[2023-04-19] MEDS: CELECOXIB 200 MG CAPSULE PO (17:50)
[2023-04-19 18:29] LABS: Bilirubin Urine SMALL (NEGATIVE); Blood Urine NEGATIVE (NEGATIVE); Clarity Urine CLEAR (CLEAR); Color Urine YELLOW (YELLOW); Glucose Urine UA 250 mg/dL (NEGATIVE); Ketones Urine TRACE mg/dL (NEGATIVE); Leukocyte Esterase Urine NEGATIVE (NEGATIVE); Nitrite Urine NEGATIVE (NEGATIVE); Protein Urine TRACE mg/dL (NEG/TRACE); Specific Gravity Urine >=1.030 (1.005-1.025); pH Urine 5.5 (5.0-9.0)
[2023-04-19 18:32] LABS: Urine Microscopic Indicated NO
[2023-04-19 18:39] LABS: Amphetamine Screen Urine NEGATIVE (NEGATIVE); Barbiturates Screen Urine NEGATIVE (NEGATIVE); Benzodiazepines Screen Urine NEGATIVE (NEGATIVE); Buprenorphine Screen Urine NEGATIVE (NEGATIVE); Cannabinoid Screen Urine NEGATIVE (NEGATIVE); Cocaine Screen Urine NEGATIVE (NEGATIVE); Methadone Screen Urine NEGATIVE (NEGATIVE); Methamphetamines Screen Urine NEGATIVE (NEGATIVE); Opiate Screen Urine NEGATIVE (NEGATIVE); Oxycodone Screen Urine NEGATIVE (NEGATIVE); Phencyclidine Screen Urine NEGATIVE (NEGATIVE); Tricyclic Antidepressant Urine NEGATIVE (NEGATIVE)
[2023-04-19] MEDS: AMITRIPTYLINE HCL 50 MG TABLET 100 MG PO (21:51)
[2023-04-21 12:46] LABS: SARS-CoV-2 NAA NOT DETECTED (NOT DETECTE)
== END 2023-04-19 22:35 ==
PROVIDERS: Emergency Medicine; Emergency Provider Student in an Organized Health Care Education/Training Program; PCP Family Medicine
DX: R45.851 Suicidal ideations (principal); M54.50 Low back pain, unspecified; Z86.73 Personal history of transient ischemic attack (TIA), and cerebral infarction without residual deficits; Z79.82 Long term (current) use of aspirin; Z79.899 Other long term (current) drug therapy; F17.210 Nicotine dependence, cigarettes, uncomplicated; Z20.822 Contact with and (suspected) exposure to COVID-19
CPT/HCPCS: 36415; 80053; 80179; 80307; 80320; 80329; 81003; 83735; 84443; 85025; 87635; 87811; 93005; 99285

== ENCOUNTER 2023-08-06 09:17 | Outpatient (OUT) | payer MEDICARE, BC, SELFPAY ==
[2023-08-06 09:32] LABS: Basophils Absolute Auto 0.1 10^3/uL (0.0-0.1); Basophils Percent Auto 0.6 % (0.2-2.0); Eosinophils Absolute Auto 0.3 10^3/uL (0.0-0.7); Eosinophils Percent Auto 2.6 % (0.9-7.0); Hematocrit 45.4 % (42.0-54.0); Hemoglobin 14.7 g/dL (14.0-18.0); Immature Granulocytes Abs Auto 0.06 10^3/uL (0.00-0.03); Immature Granulocytes Pct Auto 0.5 % (0.0-0.5); Lymphocytes Percent Auto 31.5 % (20.5-60.0); Mean Corpuscular HGB Conc 32.4 g/dL (29.9-35.2); Mean Corpuscular Hemoglobin 29.3 pg (25.9-34.0); Mean Corpuscular Volume 90.6 fL (80.0-94.0); Mean Platelet Volume 11.2 fL (9.5-13.5); Monocytes Absolute Auto 0.8 10^3/uL (0.3-0.8); Monocytes Percent Auto 6.2 % (1.7-12.0); Neutrophils Absolute Auto 7.3 10^3/uL (1.4-6.5); Neutrophils Percent Auto 58.6 % (43.0-75.0); Platelet Count 255 10^3/uL (150-450); Red Blood Count 5.01 10^6/uL (4.70-6.10); Red Cell Distribution Width 14.4 % (11.0-15.0); White Blood Count 12.5 10^3/uL (4.0-11.0)
[2023-08-06 10:25] LABS: Estimated Average Glucose 134 mg/dL; Glycohemoglobin A1C 6.3 % (4.5-6.2)
[2023-08-06 12:10] LABS: Alanine Aminotransferase 23 U/L (16-63); Albumin Globulin Ratio 0.8; Albumin Level 3.2 g/dL (3.4-5.0); Alkaline Phosphatase 55 U/L (46-116); Anion Gap 11.6; Aspartate Amino Transferase 11 U/L (15-37); Bilirubin Total 0.3 mg/dL (0.2-1.0); Calcium 8.5 mg/dL (8.5-10.1); Chloride 104 mmol/L (98-107); Chol HDL Ratio 4.5; Cholesterol 196 mg/dL (<=200); Estimated GFR (African America >60 (>=60); Estimated GFR (Non-African Ame 56 (>=60); Free T3 3.14 pg/mL (2.18-3.98); Globulin 3.8 g/dL; Glucose 113 mg/dL (74-106); HDL Cholesterol 44 mg/dL (40-60); Potassium 4.6 mmol/L (3.5-5.1); Sodium 141 mmol/L (136-145); Thyroid Stimulating Hormone 5.212 uIU/mL (0.358-3.740); Triglycerides 264 mg/dL (<=150); VLDL CHOLESTEROL 52.8 mg/dL
[2023-08-06 12:50] LABS: Prostate Specific Antigen Scrn 0.47 ng/mL (<=4.00)
== END 2023-08-06 09:18 | disposition home or self-care (01) ==
LOC: LAB 09:17
PROVIDERS: PCP Family Medicine; Visit Provider Family Medicine
DX: M54.59 Other low back pain (principal); N18.9 Chronic kidney disease, unspecified; I12.9 Hypertensive chronic kidney disease with stage 1 through stage 4 chronic kidney disease, or unspecified chronic kidney disease; R73.9 Hyperglycemia, unspecified; R73.09 Other abnormal glucose; E78.5 Hyperlipidemia, unspecified; Z12.5 Encounter for screening for malignant neoplasm of prostate
CPT/HCPCS: 36415; 80053; 80061; 83036; 84436; 84443; 84481; 85025; G0103

== ENCOUNTER 2023-09-13 11:57 | Outpatient (OUT) | payer MEDICARE, BC, SELFPAY ==
--- OUTSIDE RECORDS SUMMARY | 2023-09-13 12:04 | XMS_ITS | CCD ---
Author Name Unknown Address [address] [place] [address] Organization [facility] Care Team Providers Care Hr Consultant Name Role Phone Bro Sanford Primary Care Physician Unavailab Lior Dow Attending Physician Unavailable MD Genesis Reynolds Primary Care Provider MD Segundo Huston Emergency Provider MD Sang Bauer Admit Provider MD Lizette Sang Attending Provider [phone] LEXIE Mckeon Other Provider Unavailable DO Lawrence Lee Other Provider MD Kaden Summers Other Provider MD Edinson Bustamante Other Provider MD Itzel Adams Other Provider MD Ramos Fraga Other Provider LILA Hopper Other Provider MD Cinthia Rae Other Provider MD Ramón Ayala Other Provider MD Flavio Ramirez Other Provider Goldy [facility] Pily Espinal Other Provider MD Adelaide Leonardo Other Provider MD Itzel Adams Referring Provider MD Genesis Reynolds Primary Care Provider MD Benson Lane S Attending Provider Benson Lane Unavailable GAIL Johnson DR HURTADO Admitting Unavailable SONYAY ., DR HURTADO Primary Care Unavailable HOY ., DR HURTADO Attending Unavailable HOY ., DR HURTADO Primary Care Unavailable ANA PAULA ., LAVELL Admitting Unavailable ANA PAULA ., LAVELL Consulting Unavailable ANA PAULA ., LAVELL Attending Unavailable MOMO KHAN Consulting Unavailable GAIL ., DR HURTADO Primary Care Unavailable AUBREY POON Consulting Unavailable CLEVE, AUBREY Attending Unavailable AUBREY POON Admitting Unavailable HOY ., DR HURTADO Primary Care Unavailable DIAB ., PHILL Admitting Unavailable DIAB ., PHILL Attending Unavailable ALESIA FERNANDEZ Consulting Unavailable RAND PANDEY Consulting Unavailable DIAB ., PHILL Consulting Unavailable HOArias ., DR HURTADO Primary Care Unavailable CLAUDE ., DR GARCIA Attending Unavailable HAY ., DR GARCIA Admitting Unavailable ISAEL, DR SARAI Avendaño Consulting Unavailable HAY ., DR GARCIA Consulting Unavailable HOY ., DR HURTADO Primary Care Unavailable HAY ., DR GARCIA Attending Unavailable HAY ., DR GARCIA Admitting Unavailable KIT .CAROLINE Consulting UnavailMAGGIE Liriano Consulting Unavailable TEMI RUSSO Consulting Unavailable SARAI AVALOS Consulting Unavailable GAIL ., DR HURTADO Primary Care Unavailable HOArias ., DR HURTADO Consulting Unavailable GAIL ., DR HURTADO Attending Unavailable GAIL ., DR HURTADO Admitting Unavailable SARAI AVALOS Consulting Unavailable ANA PAULA Johnson, LAVELL Consulting Unavailable ДМИТРИЙ OSWALD Consulting Unavailable NIGEL TADEO Consulting Unavailable MENDOZA BEE Consulting Unavailable MILAD ABARCA Consulting Unavailable GAIL ., DR HURTADO Primary Care Unavailable GAIL ., DR HURTADO Attending Unavailable GAIL ., DR HURTADO Consulting Unavailable HOArias ., DR HURTADO Admitting Unavailable CLARIBEL, DR BRO Diaz Consulting Unavailable TEMI RUSSO Consulting Unavailable ANA PAULA ., LAVELL Consulting Unavailable AVA NEFF Consulting Unavailable GAIL ., DR HURTADO Primary Care Unavailable GAIL ., DR HUTRADO Consulting Unavailable GAIL ., DR HURTADO Attending Unavailable GAIL ., DR HURTADO Admitting Unavailable ISAEL, DR SARAI Avendaño Consulting Unavailable CLAUDE ., DR GARCIA Consulting Unavailable SARAI PATEL Consulting Unavailable MAURIZIO TORIBIO Consulting Unavailable YAHAIRA EASLEY Consulting Unavailable GAIL ., DR HURTADO Primary Care Unavailable EFFIE WERNER Attending Unavailable EFFIE WERNER Consulting Unavailable EFFIE WERNER Admitting Unavailable Itzel Adams Attending Unavailable Bryan, Itzel Attending Unavailable Bryan, Itzel Attending Unavailable Bryan, Itzel Attending Unavailable Sharad, Ms. Lilia Moore Attending JUDY Saavedra Referring Unavailable BRO SANFORD Primary Care Unavailabl e NADBRO GOLDBERG Primary Care Unavailabl e GREENEANTHONY MEJIA Attending Unavailable Genesis Reynolds Primary Care Unavailable Domingo, Benson S Admitting Unavailable Domingo, Benson S Attending Unavailable [place] Admitting Unavailab le [place] Attending Unavailab Genesis Ivy Primary Care Unavailable Allergies Allergy Classification Reported Allergen(s) Allergy Type Date of Onset Reaction(s) Facility (4 sources) Amitriptyline; Translations: [Amitriptyline] Drug Allergy 01-24-20 19 Unknown Reaction [facility] (12 sources) atorvastatin; Translations: [atorvastatin] Drug Allergy 01-24-20 Unknown Reaction, Unknown [facility] (6 sources) chlordiazePOXIDE; Translations: [chlordiazepoxide] Drug Allergy 01-24-20 Unknown Reaction [facility] (6 sources) clidinium; Translations: [clidinium] Drug Allergy 01-24-20 Unknown Reaction [facility] (13 sources) fentaNYL; Translations: [Fentanyl] Drug Allergy 01-24-20 Unknown Reaction, Unknown [facility] (6 sources) venlafaxine; Translations: [venlafaxine] Drug Allergy 01-24-20 19 Unknown Reaction [facility] (2 sources) Citalopram; Translations: [Citalopram] Drug Allergy 07-17-20 Unknown Reaction [facility] (4 sources) Simvastatin; Translations: [simvastatin] Drug Allergy 07-17-20 Unknown Reaction [facility] (5 sources) Succinylcholine; Translations: [Succinylcholine] Drug Allergy 09-09-19 05 Unknown Reaction [facility] (7 sources) Amitriptyline; Translations: [Elavil] Drug Allergy 04-20-20 14 Unknown [facility] (6 sources) chlordiazePOXIDE / clidinium Drug Allergy Unknown [facility] (7 sources) venlafaxine; Translations: [Effexor] Drug Allergy 04-06-20 14 Unknown [facility] (1 source) buPROPion Drug Allergy [facility] (1 source) Citalopram Drug Allergy 12-31-19 20 [facility] (1 source) mirabegron Drug Allergy [facility] (1 source) Simvastatin Drug Allergy [facility] (1 source) tiZANidine Drug Allergy [facility] Medications Current Medications Medication Drug Class(es) Dates Sig (Normalized) Sig (Original) acetaminophen 650 mg oral tablet (10 sources) Start: 07-17-2022 take 650 mg by mouth every four hours Acetaminophen Active 650 MG PO Q4H July 17, 2022 12:00am Start: 01-12-2018 End: 12-23-2018 take 500 mg by mouth every six hours Acetaminophen Discontinued 500 MG PO Q6H January 11, 2018 11:00pm December 23, 2018 4:29pm amitriptyline hydrochloride 50 mg oral tablet (3 sources) Tricyclic Antidepressant Start: 07-17-2022 take 50 mg by mouth once daily at bedtime Amitriptyline Active 50 MG PO Daily at bedtime July 17, 2022 12:00am aspirin 81 mg chewable tablet (13 sources) Platelet Aggregation Inhibitor, Nonsteroidal Anti-inflammatory Drug Start: 01-12-2018 take 1 tablet by mouth once daily Aspirin (Aspirin Childrens) 81 mg Tablet,Chewable Active 81 MG PO Daily January 11, 2018 11:00pm atorvastatin 40 mg oral tablet (10 sources) HMG-CoA Reductase Inhibitor Start: 07-17-2022 take 40 mg by mouth once daily Atorvastatin Active 40 MG PO Daily July 17, 2022 12:00am Start: 12-23-2018 End: 12-23-2018 take 1 tablet by mouth once daily Atorvastatin (Lipitor) 40 mg Tablet Discontinued 40 MG PO Daily December 22, 2018 11:00pm December 23, 2018 5:01pm brexpiprazole 3 mg oral tablet (3 sources) Atypical Antipsychotic Start: 07-17-2022 take 1 tablet by mouth once daily Brexpiprazole (Rexulti) 3 mg Tablet Active 3 MG PO 1 time daily July 17, 2022 12:00am 24 hr buPROPion hydrochloride 150 mg extended release oral tablet (2 sources) Aminoketone Start: 07-17-2022 take 150 mg by mouth once daily Bupropion Hcl Active 150 MG PO 1 time daily July 17, 2022 12:00am busPIRone hydrochloride 10 mg oral tablet (5 sources) Start: 07-17-2022 take 10 mg by mouth twice daily Buspirone Active 10 MG PO Twice daily July 17, 2022 12:00am Start: 07-17-2022 End: 07-17-2022 take 15 mg by mouth twice daily Buspirone Discontinued 15 MG PO Twice daily July 17, 2022 12:00am July 17, 2022 10:33pm cariprazine 6 mg oral capsule (6 sources) Atypical Antipsychotic take 1 capsule by mouth every twenty-four hours Vraylar 6 MG 1 capsule Orally Once a day for 30 days Active carvedilol 12.5 mg oral tablet (3 sources) alpha-Adrenergic Barbara, beta-Adrenergic Barbara Start: 07-17-20 take 12.5 mg by mouth twice daily at mealtime Carvedilol Active 12.5 MG PO Twice daily July 17, 2022 12:00am must administer with a meal/food celecoxib 200 mg oral capsule (9 sources) Nonsteroidal Anti-inflammatory Drug Start: 07-17-20 take 200 mg by mouth once daily Celecoxib Active 200 MG PO Daily July 17, 2022 12:00am citalopram 20 mg oral tablet (9 sources) Serotonin Reuptake Inhibitor Start: 07-17-20 take 20 mg by mouth once daily Citalopram Active 20 MG PO Daily July 17, 2022 12:00am Start: 02-03-2019 End: 04-11-2019 take 30 mg by mouth once daily at bedtime Citalopram Discontinued 30 MG PO Daily at bedtime February 02, 2019 11:00pm April 10, 2019 9:22pm clopidogrel 75 mg oral tablet (19 sources) [id number] Platelet Inhibitor Start: 12-17-2019 End: 12-17-2019 take 1 tablet by mouth once daily Clopidogrel (Plavix) 75 mg tablet Active 75 MG PO Daily December 16, 2019 11:00pm Start: 12-23-2018 End: 04-11-2019 take 1 tablet by mouth once daily Clopidogrel (Plavix) 75 mg tablet Discontinued 75 MG PO Daily December 22, 2018 11:00pm April 10, 2019 9:24pm hydrALAZINE hydrochloride 25 mg oral tablet (3 sources) Arteriolar Vasodilator Start: 07-17-2022 take 25 mg by mouth three times daily Hydralazine Active 25 MG PO Three times daily July 17, 2022 12:00am lamoTRIgine 100 mg oral tablet (3 sources) Mood Stabilizer, Anti-epileptic Agent Start: 07-17-2022 take 100 mg by mouth once daily Lamotrigine Active 100 MG PO Daily July 17, 2022 12:00am lisinopril 10 mg oral tablet (10 sources) Angiotensin Converting Enzyme Inhibitor Start: 07-17-2022 take 10 mg by mouth once daily Lisinopril Active 10 MG PO Daily July 17, 2022 12:00am Start: 01-12-2018 End: 01-17-2018 take 20 mg by mouth once daily Lisinopril Discontinued 20 MG PO Daily January 11, 2018 11:00pm January 17, 2018 10:29am rOPINIRole 1 mg oral tablet (16 sources) Nonergot Dopamine Agonist Start: 07-17-2022 take 1 mg by mouth once daily at bedtime Ropinirole Active 1 MG PO Daily at bedtime July 17, 2022 12:00am administer 1-3 hours before bedtime Start: 12-23-2018 take 0.75 mg by mout h once daily at bedtime Ropinirole [Requip] 0.75 MG Oral Daily at bedtime December 23, 2018 Active Start: 12-23-2018 End: 07-17-2022 take 1 tablet by mouth once daily at bedtime Ropinirole (Requip) 0.25 mg tablet Discontinued 0.25 MG PO Daily at bedtime December 22, 2018 11:00pm July 17, 2022 10:36pm traMADol hydrochloride 50 mg oral tablet (2 sources) Opioid Agonist Start: 07-20-2022 take 50 mg by mouth every eight hours Tramadol Active 50 MG PO Q8H 8 3 July 20, 2022 12:00am divalproex sodium 500 mg delayed release oral tablet (20 sources) Mood Stabilizer, Anti-epileptic Agent Start: 07-17-2022 take 500 mg by mouth twice daily Divalproex Active 500 MG PO Twice daily July 17, 2022 12:00am Start: 04-10-2019 End: 12-17-2019 take 500 mg by mouth once daily Divalproex Discontinue d 500 MG PO Daily 30 April 19, 2019 11:00pm December 17, 2019 9:16am Start: 04-10-2019 End: 12-17-2019 take 1000 mg by mouth at bedtime Divalproex Discontinued 1000 MG PO Bedtime 60 April 19, 2019 11:00pm December 17, 2019 9:16am Start: 12-27-2018 End: 04-11-2019 take 500 mg by mouth twice daily Divalproex Discontinued 500 MG PO Twice daily 60 December 26, 2018 11:00pm April 10, 2019 9:23pm take 1 tablet by chirag th every twelve hours Depakote ER 250 MG 1 tablet Orally twice a day for 30 days Active Completed/Discontinued Medications Medication Drug Class(es) Dates Sig (Normalized) Sig (Original) acetaminophen 325 mg / HYDROcodone bitartrate 5 mg oral tablet (12 sources) Opioid Agonist Start: 12-17-2019 End: 07-20-2022 take 1 tablet by mouth twice daily Hydrocodone-Aceta minophen ([place]) 5-325 mg tablet Discontinued 1 TAB PO Twice daily 0 December 23, 2019 8:55am July 20, 2022 3:12pm amLODIPine 5 mg oral tablet (20 sources) Dihydropyridine Calcium Channel Barbara Start: 12-17-2019 End: 07-17-2022 take 1 tablet by mouth once daily Amlodipine (Norvasc) 5 mg tablet Discontinued 5 MG PO Daily December 16, 2019 11:00pm July 17, 2022 10:32pm Start: 12-27-2018 End: 12-17-2019 take 1 tablet by mouth once daily in the morning Amlodipine (Norvasc) 10 mg tablet Discontinued 10 MG PO Every morning January 24, 2019 9:52am December 17, 2019 9:02am Start: 02-11-2018 End: 12-27-2018 take 5 mg by mouth once daily in the morning Amlodipine Discontinued 5 MG PO Every morning December 22, 2018 11:00pm December 27, 2018 9:50am DULoxetine 60 mg delayed release oral capsule (20 sources) Serotonin and Norepinephrine Reuptake Inhibitor Start: 12-27-2018 End: 01-24-2019 take 30 mg by mouth twice daily Duloxetine Discontinued 30 MG PO Twice daily December 26, 2018 11:00pm January 24, 2019 9:44am Start: 12-23-2018 End: 12-27-2018 take 60 mg by mouth twice daily Duloxetine Discontinued 60 MG PO Twice daily December 23, 2018 4:45pm December 27, 2018 9:50am Start: 01-17-2018 End: 12-23-2018 take 20 mg by mouth once daily Duloxetine Discontinued 20 MG PO Daily January 17, 2018 10:35am December 23, 2018 4:31pm Start: 01-12-2018 End: 01-17-2018 take 60 mg by mouth once daily Duloxetine Discontinued 60 MG PO Daily January 11, 2018 11:00pm January 17, 2018 10:36am gabapentin 600 mg oral tablet (20 sources) Anti-epileptic Agent Start: 12-17-2019 End: 07-17-2022 take 1 tablet by mouth four times daily Gabapentin (Neurontin) 600 mg tablet Discontinued 600 MG PO Four times daily December 16, 2019 11:00pm July 17, 2022 10:35pm Start: 12-16-2019 End: 01-07-2020 take 600 mg by mouth four times daily Gabapentin Discontinued 600 MG PO Four times daily December 16, 2019 9:30pm January 07, 2020 5:38am Start: 04-20-2019 End: 12-16-2019 take 400 mg by mouth three times daily Gabapentin Discontinued 400 MG PO Three times daily 90 April 19, 2019 11:00pm December 16, 2019 9:31pm Start: 02-03-2019 End: 04-20-2019 take 300 mg by mouth three times daily Gabapentin Discontinued 300 MG PO Three times daily February 02, 2019 11:00pm April 20, 2019 11:29am Start: 02-08-2018 End: 12-23-2018 take 1 tablet by mouth three times daily Gabapentin (Neurontin) 800 mg tablet Discontinued 800 MG PO Three times daily February 08, 2018 9:15pm December 23, 2018 4:28pm Start: 01-17-2018 End: 02-09-2018 take 300 mg by mouth twice daily Gabapentin 300 MG Oral Twice daily 0 January 17, 2018 Discontinued Start: 01-17-2018 End: 02-08-2018 Gabapentin (Neurontin) 800 m g Tablet Discontinued 300 MG PO Twice daily January 17, 2018 10:35am February 08, 2018 9:12pm Start: 01-12-2018 End: 01-17-2018 take 1 tablet by mouth three times daily Gabapentin (Neurontin) 800 mg Tablet Discontinued 800 MG PO Three times daily January 11, 2018 11:00pm January 17, 2018 10:36am hydroCHLOROthiazide 25 mg / lisinopril 20 mg oral tablet (7 sources) Thiazide Diuretic, Angiotensin Converting Enzyme Inhibitor Start: 02-11-2018 End: 02-11-2018 take 1 tablet by mouth once daily Lisinopril-Hydrochlorothiazide 1 TAB Oral Daily February 11, 2018 February 11, 2018 Discontinued Start: 02-11-2018 End: 02-11-2018 take 1 tablet by mouth once daily Lisinopril-Hydrochlorothiazide 1 TAB Ora l Daily February 11, 2018 Discontinued Start: 02-11-2018 End: 02-11-2018 take 1 tablet by mouth once daily Lisinopril-Hydrochlorothiazide 1 TAB Ora l Daily February 11, 2018 February 11, 2018 Discontinued Start: 02-11-2018 End: 02-11-2018 take 1 tablet by mouth once daily Lisinopril-Hydrochlorothiazide 1 TAB Ora l Daily February 11, 2018 Discontinued Start: 02-11-2018 End: 02-11-2018 take 1 tablet by mouth once daily Lisinopril-Hydrochlorothiazide Discontin ued 1 TAB PO Daily February 10, 2018 11:00pm February 11, 2018 10:59am hydrOXYzine hydrochloride 25 mg oral tablet (14 sources) Antihistamine Start: 12-16-2019 End: 12-17-2019 take 50 mg by mouth four times daily Hydroxyzine Hcl Discontinued 50 MG PO Four times daily December 16, 2019 9:30pm December 17, 2019 9:09am Start: 04-20-2019 End: 12-16-2019 take 25 mg by mouth every eight hours Hydroxyzine Hcl Discontinued 25 MG PO Q8H April 19, 2019 11:00pm December 16, 2019 9:31pm take 1 tablet by chirag th four times daily as needed hydrOXYzine HCl 50 MG 1 tablet as needed Orally four times daily Active LORazepam 2 mg oral tablet (20 sources) Benzodiazepine Start: 01-24-2019 End: 01-24-2019 Lorazepam January 24, 2019 Discontinued Start: 01-24-2019 End: 01-24-2019 Lorazepam January 24, 2019 January 072018 Discontinued Start: 01-24-2019 End: 01-24-2019 Lorazepam January 24, 2019 January 072018 Discontinued Start: 01-24-2019 End: 01-24-2019 Lorazepam January 24, 2019 Disco ntinued Start: 01-24-2019 End: 01-24-2019 Lorazepam Discontinued TABLE T January 23, 2019 11:00pm January 24, 2019 9:58am Start: 02-08-2018 End: 12-27-2018 take 2 mg by mouth three times daily Lorazepam Discontinued 2 MG PO Three times daily February 08, 2018 9:11pm December 27, 2018 9:50am Start: 01-17-2018 End: 02-09-2018 take 1 mg by mouth three times daily Lorazepam Discontinued 1 MG PO Three times daily 0 January 17, 2018 10:35am February 08, 2018 9:11pm Start: 01-12-2018 End: 01-17-2018 take 2 mg by mouth three times daily Lorazepam Discontinued 2 MG PO Three times daily January 11, 2018 11:00pm January 17, 2018 10:36am take 1 tablet by chirag th every twenty-four hours LORazepam 0.5 MG 1 tablet Orally Once a day for 30 days f41.1 Active 24 hr metFORMIN hydrochloride 500 mg extended release oral tablet (13 sources) Biguanide Start: 01-12-2018 End: 07-17-2022 take 500 mg by mouth twice daily Metformin Discontinued 500 MG PO Twice daily January 11, 2018 11:00pm July 17, 2022 10:36pm mirtazapine 30 mg oral tablet (8 sources) Start: 12-16-2019 End: 01-07-2020 take 45 mg by mouth once daily at bedtime Mirtazapine Discontinued 45 MG PO Daily at bedtime December 16, 2019 9:30pm January 07, 2020 5:38am Start: 04-20-2019 End: 12-16-2019 take 30 mg by mouth once daily at bedtime Mirtazapine Discontinued 30 MG PO Daily at bedtime April 19, 2019 11:00pm December 16, 2019 9:31pm morphine sulfate 15 mg extended release oral tablet (20 sources) Opioid Agonist Start: 02-08-2018 End: 12-23-2018 take 60 mg by mouth every twelve hours Morphine Discontinued 60 MG PO Every 12 hours February 08, 2018 9:15December 23, 2018 4:28pm Start: 01-17-2018 End: 02-09-2018 take 15 mg by mouth every twelve hours Morphine Discontinued 15 MG PO Every 12 hours January 16, 2018 11:00pm February 08, 2018 9:15pm Start: 01-12-2018 End: 01-17-2018 take 60 mg by mouth twice daily Morphine Discontinued 60 MG PO Twice daily January 11, 2018 11:00pm January 17, 2018 10:29am 24 hr nicotine 0.875 mg/hr transdermal system (20 sources) Cholinergic Nicotinic Agonist Start: 12-23-2019 End: 07-17-2022 Nicotine Discontinued 1 EACH TRANSDERML Daily December 22, 2019 11:00pm July 17, 2022 10:36pm Start: 12-27-2018 End: 04-20-2019 Nicotine Discontinued 1 EACH TRANSDERML Daily December 26, 2018 11:00pm April 20, 2019 11:29am Start: 01-17-2018 End: 02-09-2018 Nicotine Discontinued 1 EACH TRANSDERML Daily January 16, 2018 11:00pm February 08, 2018 9:14pm apply 1 dose transde rmal route once daily Nicotine 21 MG/24HR 1 patch to skin Transdermal Once a day Active oxybutynin chloride 5 mg oral tablet (7 sources) Cholinergic Muscarinic Antagonist Start: 12-23-2018 End: 04-11-2019 take 5 mg by mouth once daily in the morning Oxybutynin Chloride Discontinued 5 MG PO Every morning December 22, 2018 11:00pm April 10, 2019 9:26pm risperiDONE 3 mg oral tablet (18 sources) Atypical Antipsychotic Start: 12-17-2019 End: 01-07-2020 take 1 tablet by mouth once daily Risperidone (Risperdal) 3 mg tablet Discontinued 3 MG PO Daily December 16, 2019 11:00pm January 07, 2020 5:37am Start: 12-16-2019 End: 12-17-2019 take 3 mg by mouth once daily Risperidone Discontinued 3 MG PO Daily December 16, 2019 9:25pm December 17, 2019 9:11am Start: 04-20-2019 End: 12-16-2019 take 2 mg by mouth twice daily Risperidone Discontinue d 2 MG PO Twice daily 60 April 19, 2019 11:00pm December 16, 2019 9:25pm Start: 02-03-2019 End: 04-20-2019 take 1 mg by mouth twice daily Risperidone Discontinue d 1 MG PO Twice daily February 02, 2019 11:00pm April 20, 2019 11:29am simvastatin 20 mg oral tablet (9 sources) HMG-CoA Reductase Inhibitor Start: 12-17-2019 End: 07-17-2022 take 1 tablet by mouth at bedtime Simvastatin (Zocor) 20 mg tablet Discontinued 20 MG PO Bedtime December 16, 2019 11:00pm July 17, 2022 10:36pm tamsulosin hydrochloride 0.4 mg oral capsule (14 sources) alpha-Adrenergic Barbara Start: 01-12-2018 End: 12-23-2018 Tamsulosin Discontinued December 22, 2018 11:00pm December 23, 2018 4:34pm tiZANidine 4 mg oral capsule (7 sources) Central alpha-2 Adrenergic Agonist Start: 01-12-2018 End: 01-17-2018 take 4 mg by mouth twice daily Tizanidine Discontinued 4 MG PO Twice daily January 11, 2018 11:00pm January 17, 2018 10:32am traZODone hydrochloride 50 mg oral tablet (20 sources) Serotonin Reuptake Inhibitor Start: 12-16-2019 End: 07-17-2022 take 100 mg by mouth once daily at bedtime Trazodone Discontinued 100 MG PO Daily at bedtime December 16, 2019 9:21pm July 17, 2022 10:36pm Start: 12-27-2018 End: 12-16-2019 take 50 mg by mouth once daily at bedtime Trazodone Discontinued 50 MG PO Daily at bedtime February 02, 2019 11:00pm April 10, 2019 9:26pm take 1 tablet by chirag every twenty-four hours traZODone HCl 100 MG 1 tablet at bedtime Orally Once a day Active vancomycin 50 mg/ml injectable solution (7 sources) Glycopeptide Antibacterial Start: 01-17-2018 End: 02-09-2018 take 125 mg by mouth four times daily Vancomycin Discontinued 125 MG PO Four times daily January 16, 2018 11:00pm February 08, 2018 9:13pm Problems Active Problems Problem Classification Problem Date Documented Date Episodic/Chronic Acute bronchitis (1 source) Acute bronchitis, unspecified; Translations: [ACUTE BRONCHITIS UNSPECIFIED] Onset: 12-20-2022 Episodic Anxiety disorders (1 source) Anxiety disorder, unspecified; Translations: [ANXIETY DISORDER UNSPECIFIED] Onset: 01-21-2023 Chronic Congestive heart failure; nonhypertensive (1 source) Chronic diastolic (congestive) heart failure; Translations: [CHRONIC DIASTOLIC HEART FAILURE] Onset: 01-21-2023 Chronic Coronary atherosclerosis and other heart disease (6 sources) Coronary arteriosclerosis; Translations: [Atherosclerotic heart disease of [place] coronary artery without angina pectoris] Onset: 01-21-2023 01-14-2020 Chronic Coronary atherosclerosis and other heart disease (3 sources) Presence of aortocoronary bypass graft; Translations: [Aortocoronary bypass status] Onset: 01-21-2023 07-17-2022 Episodic Crushing injury or internal injury (5 sources) Injury of kidney; Translations: [Acute kidney failure, unspecified] 12-17-2019 Episodic Diabetes mellitus without complication (10 sources) Diabetes mellitus; Translations: [Type 2 diabetes mellitus without complications] Onset: 01-21-2023 12-17-2019 Chronic Disorders of lipid metabolism (4 sources) Hyperlipidemia; Translations: [Hyperlipidemia, unspecified] Onset: 06-25-2022 07-18-2022 Chronic E Codes: Adverse effects of medical drugs (3 sources) Adverse effect of benzodiazepines, initial encounter; Translations: [Adverse effect of unspecified drugs, medicaments and biological substances, initial encounter] Onset: 06-25-2022 Episodic Essential hypertension (9 sources) Hypertensive disorder; Translations: [Essential (primary) hypertension] 01-14-2020 Chronic Fluid and electrolyte disorders (7 sources) Hypokalemia; Translations: [Hypokalemia] Onset: 11-15-2022 04-11-2019 Episodic Hyperplasia of prostate (6 sources) Benign prostatic hyperplasia; Translations: [Benign prostatic hyperplasia without lower urinary tract symptoms] Onset: 01-21-2023 02-11-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 Hypertension with complications and secondary hypertension (1 source) Hypertensive heart disease with heart failure; Translations: [HTN HEART DISEASE W/HEART FAIL] Onset: 01-21-2023 Chronic Malaise and fatigue (8 sources) Asthenia; Translations: [Weakness] Onset: 06-25-2022 07-17-2022 Episodic Mood disorders (16 sources) Major depressive disorder; Translations: [Severe depressed bipolar I disorder] Onset: 06-25-2022 12-23-2019 Chronic Nonspecific chest pain (5 sources) Chest pain; Translations: [Chest pain, unspecified] 07-17-2022 Episodic Other aftercare (1 source) Other care home (current) drug therapy; Translations: [OTH G[employer]SET [employer] CURRENT DRUG THERAPY] Onset: 01-21-2023 Episodic Other aftercare (1 source) [facility] (current) use of antithrombotics/antip latelets; Translations: [GUSSET MA[employer]ER 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/ANTIPLAT LETS] Onset: 12-20-2022 Episodic Other circulatory disease (5 sources) Low blood pressure; Translations: [Hypotension, unspecified] 02-09-2018 Episodic Other connective tissue disease (1 source) Arthrodesis status; Translations: [ARTHRODESIS STATUS] Onset: 01-21-2023 Episodic Other hereditary and degenerative nervous system conditions (5 sources) Myoclonus; 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 Other hereditary and degenerative nervous system conditions (1 source) Restless legs syndrome; Translations: [RESTLESS LEGS SYNDROME] Onset: 01-21-2023 Chronic Other injuries and conditions due to external causes (1 source) History of falling; Translations: [HISTORY OF FALLING] Onset: 01-21-2023 Episodic Other lower respiratory disease (1 source) Personal history of pneumonia (recurrent); Translations: [PERSONAL HX OF PNEUMONIA RECURRENT] Onset: 10-30-2022 Episodic Other nervous system disorders (3 sources) Disorder of brain; Translations: [Encephalopathy, unspecified] 12-17-2019 Chronic Other nervous system disorders (6 sources) Chronic pain; Translations: [Other chronic pain] Chronic Other nervous system disorders (3 sources) Other chronic pain; Translations: [OTHER CHRONIC PAIN] Onset: 12-20-2022 Chronic Other nervous system disorders (1 source) Difficulty in walking, not elsewhere classified; Translations: [DIFFICULTY IN WALKING NEC] Onset: 08-14-2022 Chronic Other nervous system disorders (1 source) Other chronic pain; Translations: [Other chronic pain] Onset: 11-01-2022 Chronic Other nervous system disorders (5 sources) Ataxia; Translations: [Ataxia, unspecified] 01-13-2018 Episodic Peripheral and visceral atherosclerosis (1 source) Peripheral vascular disease, unspecified; Translations: [PERIPHERAL VASCULAR DISEASE UNS] Onset: 10-30-2022 Chronic Pneumonia (except that caused by tuberculosis or sexually transmitted disease) (1 source) Pneumonia, unspecified organism; Translations: [PNEUMONIA UNSPECIFIED ORGANISM] Onset: 12-20-2022 Episodic Residual codes; unclassified (1 source) Sleep apnea, unspecified; Translations: [SLEEP APNEA UNSPECIFIED] Onset: 12-20-2022 Chronic Residual codes; unclassified (2 sources) Delirium Episodic Residual codes; unclassified (2 sources) Chronic back pain Episodic Residual codes; unclassified (5 sources) Altered mental status, unspecified; Translations: [ALTERED MENTAL STATUS UNSPECIFIED] Onset: 07-15-2022 Episodic Schizophrenia and other psychotic disorders (4 sources) Schizoaffective disorder; Translations: [Schizoaffective disorder, unspecified] 04-11-2019 Chronic Spondylosis; intervertebral disc disorders; other back problems (20 sources) Inflammation of sacroiliac joint; Translations: [Sacroiliitis, not elsewhere classified] Onset: 11-01-2022 Chronic Spondylosis; intervertebral disc disorders; other back problems (17 sources) Backache; Translations: [Dorsalgia, unspecified] Onset: 08-08-2022 12-24-2018 Episodic Substance-related disorders (1 source) Nicotine dependence, cigarettes, uncomplicated; Translations: [NICOTINE DEPEND CIGARETTES UNCOMP] Onset: 08-08-2022 Chronic Substance-related disorders (2 sources) Other psychoactive substance use, unspecified, uncomplicated; Translations: [Other psychoactive substance use, unspecified, uncomplicated] Onset: 04-26-2023 Episodic Suicide and intentional self-inflicted injury (3 sources) Suicidal thoughts; Translations: [Suicidal ideations] 12-17-2019 Episodic Unclassified (4 sources) LOW BACK PAIN, UNSPECIFIED; Translations: [LOW BACK PAIN, UNSPECIFIED] Onset: 08-08-2022 Unclassified (1 source) CONTACT W/AND (SUSP) EXPOS COVID-19; Translations: [CONTACT W/AND (SUSP) EXPOS COVID-19] Onset: 12-20-2022 Past or Other Problems Problem Classification Problem Date Documented Da te Episodic/Chronic Deficiency and other anemia (1 source) Iron deficiency anemia, unspecified; Translations: [IRON DEFICIENCY ANEMIA UNSPECIFIED] Onset: 06-25-2022 Episodic E Codes: Fall (1 source) Fall on same level from slipping, tripping and stumbling without subsequent striking against object, initial encounter; Translations: [FALL SAME LVL SLIP NO STRK OBJ INIT] Onset: 08-08-2022 Episodic Genitourinary symptoms and ill-defined conditions (4 sources) Frequency of micturition; Translations: [FREQUENCY OF MICTURITION] Onset: 06-21-2022 Episodic Immunizations and screening for infectious disease (1 source) Encounter for immunization; Translations: [ENCOUNTER FOR IMMUNIZATION] Onset: 08-08-2022 Episodic Other aftercare (1 source) [facility] (current) use of aspirin; Translations: [NURSING HOME CURRENT USE OF ASPIRIN] Onset: 07-20-2022 Episodic Other injuries and conditions due to external causes (3 sources) Unspecified injury of head, initial encounter; Translations: [UNSPECIFIED INJURY HEAD INITIAL ENC] Onset: 08-04-2022 Episodic Other injuries and conditions due to external causes (1 source) Other specified injuries of head, initial encounter; Translations: [OTH SPEC INJURIES HEAD INITIAL ENC] Onset: 08-08-2022 Episodic Other non-traumatic joint disorders (4 sources) Pain in right knee; Translations: [PAIN IN RIGHT KNEE] Onset: 08-10-2022 Episodic Superficial injury; contusion (3 sources) Contusion of other part of head, initial encounter; Translations: [Abrasion of other part of head, initial encounter] Onset: 08-08-2022 Episodic Unclassified (1 source) LOW BACK PAIN, UNSPECIFIED; Translations: [LOW BACK PAIN, UNSPECIFIED] Onset: 10-26-2022 Results Test Name Value Interpretation Reference Range Facility Cult, [facility] 04-30-2023 Cult, Blood Specimen Description .BLOOD Special Requests lhand, 9ml, 2 bottles Culture NO GROWTH 5 DAYS Report Status FINAL 04/30/2023 [facility] Comment on above: Performed By: #### B CUL2 #### [facility] [address] [place] [address] Embedded Linux Developer: Sarai Howell MD [facility],Blood 04-30-2023 Cult,Blood Specimen Description .BLOOD Special Requests LAC, 20ML Culture NO GROWTH 5 DAYS Report Status FINAL 04/30/2023 [facility] Comment on above: Performed By: #### B C #### [facility] [address] [place] [address] Embedded Linux Developer: Sarai Howell MD Lipid Profileon 04-26-2023 Cholesterol [Mass/Vol] 171 mg/dL Normal <200 [facility] Comment on above: Result Comment: Cholesterol Guidelines: <200 Desirable 200-240 Borderline >240 Undesirable Performed By: #### L IPR #### [address] [address] Embedded Linux Developer: Spencer Tapia MD Cholesterol in HDL [Mass/Vol] 30 mg/dL Low >40 [facility] Comment on above: Result Comment: HDL Guidelines: <40 Undesirable 40-59 Borderline >59 Desirable Performed By: #### L IPR #### [address] [address] Embedded Linux Developer: Spencer Tapia MD Cholesterol in LDL [Mass/Vol] 112 mg/dL Normal 0-130 [facility] Comment on above: Result Comment: LDL Guidelines: <100 Desirable 100-129 Near to/above Desirable 130-159 Borderline >159 Undesirable Direct (measured) LDL and calculated LDL are not interchangeable tests. Performed By: #### L IPR #### [address] [address] Embedded Linux Developer: Spencer Tapia MD Cholesterol.total/Chol esterol in HDL [Mass ratio] 5.7 {ratio} High <5 [facility] Comment on above: Performed By: #### L IPR #### [address] [address] Embedded Linux Developer: Spencer Tapia MD Triglyceride [Mass/Vol] 143 mg/dL Normal <150 [facility] Comment on above: Result Comment: Triglyceride Guidelines: <150 Desirable 150-199 Borderline 200-499 High >499 Very high Based on AHA Guidelines for fasting triglyceride, June 2012. Performed By: #### L IPR #### [address] [address] Embedded Linux Developer: Spencer Tapia MD Basic Metabolic Profon 04-25 Anion gap [Moles/Vol] 13 mmol/L Normal 9-17 [facility] Comment on above: Performed By: #### T ANJALI AYALA, BMP #### [facility] [address] [place] [address] Embedded Linux Developer: Sarai Howell MD BUN/CRE Ratio 14 Normal 9-20 [facility] Comment on above: Performed By: #### T ANJALI AYALA, BMP #### [facility] [address] [place], [place] [id number] Embedded Linux Developer: Sarai Howell MD Calcium [Mass/Vol] 9.3 mg/dL Normal 8.6-10.4 [facility] Comment on above: Performed By: #### T ANJALI AYALA, BMP #### [address] [place], [place] [id number] Embedded Linux Developer: Sarai Howell MD Chloride [Moles/Vol] 101 mmol/L Normal 98-107 [facility] Comment on above: Performed By: #### T ANJALI AYALA, BMP #### [facility] [address] [place] [address] Embedded Linux Developer: Sarai Howell MD CO2 [Moles/Vol] 25 mmol/L Normal 20-31 [facility] Comment on above: Performed By: #### ANJALI PRADHAN, BMP #### [facility] [address] [place], [place] [address] Embedded Linux Developer: Sarai Howell MD Creatinine [Mass/Vol] 1.3 mg/dL High 0.7-1.2 [facility] Comment on above: Performed By: #### ANJALI PRADHAN, BMP #### [facility] [address] [place] [address] Embedded Linux Developer: Sarai Howell MD GFR/1.73 sq M.predicted among non-blacks MDRD (S/P/Bld) [Vol rate/Area] mL/min/{1.73_m2} Normal >60 [facility] Comment on above: Result Comment: These results are not intended for use in patients <18 years of age. eGFR results are calculated without a race factor using the 2020 CKD-EPI equation. Careful clinical correlation is recommended, particularly when comparing to results calculated using previous equations. The CKD-EPI equation is less accurate in patients with extremes of muscle mass, extra-renal metabolism of creatine, excessive creatine ingestion, or following therapy that affects renal tubular secretion. Performed By: #### T ANJALI AYALA, BMP #### [facility] [address] [place] [address] Embedded Linux Developer: Sarai Howell MD Glucose [Mass/Vol] 87 mg/dL Normal 70-99 [facility] Comment on above: Performed By: #### ANJALI PRADHAN, BMP #### [facility] [address] [place], [place] [address] Embedded Linux Developer: Sarai Howell MD Potassium [Moles/Vol] 3.9 mmol/L Normal 3.7-5.3 [facility] Comment on above: Performed By: #### ANJALI PRADHAN, BMP #### [facility] [address] [place] [address] [place] [address] Embedded Linux Developer: Sarai Howell MD Sodium [Moles/Vol] 139 mmol/L Normal 135-144 [facility] Comment on above: Performed By: #### ANJALI PRADHAN, BMP #### [facility] [address] [place], [place] [id number] Embedded Linux Developer: Sarai Howell MD Urea nitrogen [Mass/Vol] 18 mg/dL Normal 8-23 [facility] Comment on above: Performed By: #### ANJALI PRADHAN, BMP #### [facility] [address] [place] [address] Embedded Linux Developer: Sarai Howell MD CBC with Diffon 04-25-2023 Abs. Basophil 0.04 k/uL Normal 0.00-0.20 [facility] Comment on above: Performed By: #### ANJALI PRADHAN, BMP #### [facility] [address] [place] [address] [place] [address] Embedded Linux Developer: Sarai Howell MD Abs.Imm.Granulocyte 0.04 k/uL Normal 0.00-0.30 [facility] Comment on above: Performed By: #### ANJALI PRADHAN, BMP #### [facility] [address] [place] [address] Embedded Linux Developer: Sarai Howell MD Abs.Neutrophil (Seg) 5.64 k/uL Normal 1.50-8.10 [facility] Comment on above: Performed By: #### ANJALI PRADHAN, BMP #### [address] [place] [address] Embedded Linux Developer: Sarai Howell MD Basophils/100 WBC (Bld) 1 % Normal 0-2 [facility] Comment on above: Performed By: #### ANJALI PRADHAN, BMP #### [address] [place] [address] Embedded Linux Developer: Sarai Howell MD Eosinophils (Bld) [#/Vol] 0.09 10*3/uL Normal 0.00-0.44 [facility] Comment on above: Performed By: #### ANJALI PRADHAN, BMP #### [address] [place], [place] [address] Embedded Linux Developer: Sarai Howell MD Eosinophils/100 WBC (Bld) 1 % Normal 1-4 [facility] Comment on above: Performed By: #### ANJALI PRADHAN, BMP #### [address] [place] [address] Embedded Linux Developer: Sarai Howell MD Erythrocyte distribution width (RBC) [Ratio] 15.4 % High 11.8-14.4 [facility] Comment on above: Performed By: #### ANJALI PRADHAN, BMP #### [facility] [address] [place], [place] [id number] Embedded Linux Developer: Sarai Howell MD Hematocrit (Bld) [Volume fraction] 40.6 % Low 40.7-50.3 [facility] Comment on above: Performed By: #### ANJALI PRADHAN, BMP #### [address] [place], [facility] Embedded Linux Developer: Sarai Howell MD Hemoglobin (Bld) [Mass/Vol] 13.1 g/dL Normal 13.0-17.0 [facility] Comment on above: Performed By: #### ANJALI PRADHAN, BMP #### [address] [place], [place] [address] Embedded Linux Developer: Sarai Howell MD Immature granulocytes/100 WBC (Bld) 1 % High 0 [facility] Comment on above: Performed By: #### ANJALI PRADHAN, BMP #### [address] [place], [facility]83 Embedded Linux Developer: Sarai Howell MD Lymphocytes (Bld) [#/Vol] 1.86 10*3/uL Normal 1.10-3.70 [facility] Comment on above: Performed By: #### ANJALI PRADHAN, BMP #### [address] [place], [facility]83 Embedded Linux Developer: Sarai Howell MD Lymphocytes/100 WBC (Bld) 22 % Low 24-43 [facility] Comment on above: Performed By: #### ANJALI PRADHAN, BMP #### [address] [place] [address] Embedded Linux Developer: Sarai Howell MD MCH (RBC) [Entitic mass] 29.0 pg Normal 25.2-33.5 [facility] Comment on above: Performed By: #### ANJALI PRADHAN, BMP #### [facility] [address] [place], [facility]83 Embedded Linux Developer: Sarai Howell MD MCHC (RBC) [Mass/Vol] 32.3 g/dL Normal 28.4-34.8 [facility] Comment on above: Performed By: #### ANJALI PRADHAN, BMP #### [facility] [address] [place] [address] Embedded Linux Developer: Sarai Howell MD MCV (RBC) [Entitic vol] 89.8 fL Normal 82.6-102.9 [facility] Comment on above: Performed By: #### ANJALI PRADHAN, BMP #### [facility] [address] [place] [address] Embedded Linux Developer: Sarai Howell MD Monocytes (Bld) [#/Vol] 0.83 10*3/uL Normal 0.10-1.20 [facility] Comment on above: Performed By: #### ANJALI PRADHAN, BMP #### [address] [place] [id number] Embedded Linux Developer: Sarai Howell MD Monocytes/100 WBC (Bld) 10 % Normal 3-12 [facility] Comment on above: Performed By: #### ANJALI PRADHAN, BMP #### [facility] [address] [place] [address] Embedded Linux Developer: Sarai Howell MD Neutrophil (Seg) 65 % Normal 36-65 [facility] Comment on above: Performed By: #### T ANJALI AYALA, BMP #### [facility] [address] [place] [address] Embedded Linux Developer: Sarai Howell MD NRBC Automated 0.0 per 100 WBC Normal 0.0 [facility] Comment on above: Performed By: #### T ANJALI AYALA, BMP #### [facility] [address] [place] [address] Embedded Linux Developer: Sarai Howell MD Platelet mean volume (Bld) [Entitic vol] 11.9 fL Normal 8.1-13.5 [facility] Comment on above: Performed By: #### T ANJALI AYALA, BMP #### [facility] [address] [place] [id number] Embedded Linux Developer: Sarai Howell MD Platelets (Bld) [#/Vol] 254 10*3/uL Normal 138-453 [facility] Comment on above: Performed By: #### T ANJALI AYALA, BMP #### [facility] [address] [place] [address] Embedded Linux Developer: Sarai Howell MD RBC (Bld) [#/Vol] 4.52 10*6/uL Normal 4.21-5.77 [facility] Comment on above: Performed By: #### ANJALI PRADHAN, BMP #### [facility] [address] [place] [address] Embedded Linux Developer: Sarai Howell MD WBC (Bld) [#/Vol] 8.5 10*3/uL Normal 3.5-11.3 [facility] Comment on above: Performed By: #### ANJALI PRADHAN, BMP #### [address] [place] [id number] Embedded Linux Developer: Sarai Howell MD CT HEAD WO CONTRASTon 2022 CT HEAD WO CONTRAST EXAMINATION: CT OF THE HEAD WITHOUT CONTRAST 04/25/2023 3:43 pm TECHNIQUE: CT of the head was performed without the administration of intravenous contrast. Automated exposure control, iterative reconstruction, and/or weight based adjustment of the mA/kV was utilized to reduce the radiation dose to as low as reasonably achievable. COMPARISON: Old lacunar-type infarcts HISTORY: ORDERING SYSTEM PROVIDED HISTORY: AMS TECHNOLOGIST PROVIDED HISTORY: AMS Decision Support Exception - unselect if not a suspected or confirmed emergency medical condition->Emergency Medical Condition (MA) FINDINGS: BRAIN/VENTRICLES: Ill-defined hypoattenuation in the superior right frontal lobe, favored to represent chronic microvascular ischemic change. There is no acute intracranial hemorrhage, mass effect or midline shift. No abnormal extra-axial fluid collection. 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 There is prominence of the ventricles and sulci due to global parenchymal volume loss. There are nonspecific areas of hypoattenuation within the periventricular and subcortical white matter, which likely represent chronic microvascular ischemic change. SINUSES: The visualized paranasal sinuses and mastoid air cells demonstrate no acute abnormality. SOFT TISSUES/SKULL: No acute abnormality of the visualized skull or soft tissues. IMPRESSION: 1. Ill-defined hypoattenuation in the superior right frontal lobe, favored to represent chronic microvascular ischemic disease or prior vascular insult, if there remains clinical concern MRI could be completed for further evaluation. 2. No acute intracranial hemorrhage. Interpreted by: Babs Mae MD Signed by: Babs Mae MD 04/25/23 Final result Normal [facility] Flu A/B Ag Detectionon 04-25 Flu A Ag Detection Negative Normal NEG [facility] Comment on above: Result Comment: for Influenza A Antigen Performed By: #### L ACTIC #### [facility] [address] [place] [address] [place] [address] Embedded Linux Developer: Sarai Howell MD Flu B Ag Detection Negative Normal NEG [facility] Comment on above: Result Comment: for Influenza B Antigen. Performed By: #### L ACTIC #### [address] [place] [address] Embedded Linux Developer: Sarai Howell MD Lactic Acidon 04-25-2023 Lactate [Moles/Vol] 1.3 mmol/L Normal 0.5-2.2 [facility] Comment on above: Performed By: #### L ACTIC #### [facility] [address] [place] [address] [place] [address] Embedded Linux Developer: Sarai Howell MD [id number] 04-25-2023 SARS-CoV-2 (COVID-19) RNA JOSÉ MIGUEL+probe Ql (Unsp spec) Not detected Normal NOTDET [facility] Comment on above: Result Comment: Rapid NAAT: The specimen is NEGATIVE for SARS-CoV-2, the novel coronavirus associated with COVID-19. The ID NOW COVID-19 assay is designed to detect the virus that causes COVID-19 in patients with signs and symptoms of infection who are suspected of COVID-19. An individual without symptoms of COVID-19 and who is not shedding SARS-CoV-2 virus would expect to have a negative (not detected) result in this assay. Negative results should be treated as presumptive and, if inconsistent with clinical signs and symptoms or necessary for patient management, should be tested with an alternative molecular assay. Negative results do not preclude SARS-CoV-2 infection and should not be used as the sole basis for patient management decisions. Fact sheet for Healthcare Providers: https://www.fda.gov/media/008469/download Fact sheet for Patients: https://www.fda.gov/media/200785/download Methodology: Isothermal Nucleic Acid Amplification Performed By: #### C OVRB #### [address] [place] [id number] Embedded Linux Developer: Sarai Howell MD Troponinon 04-25-7723 Troponin, High Sens 26 ng/L High 022 [facility] Comment on above: Result Comment: High Sensitivity Troponin values cannot be compared with other Troponin methodologies. Performed By: #### T ROPI #### [address] [place] [id number] Embedded Linux Developer: Sarai Howell MD Troponin, High Sens 27 ng/L High 022 [facility] Comment on above: Result Comment: High Sensitivity Troponin values cannot be compared with other Troponin methodologies. Performed By: #### T ROPI, CDP, BMP #### [address] [place] [address] Embedded Linux Developer: Sarai Howell MD UA w/Reflex Cultureon 2022 Bilirubin, SemiQt,Ur SMALL Abnormal NEG [facility] Comment on above: Performed By: #### L ACTIC #### [address] [place] [id number] Embedded Linux Developer: Sarai Howell MD Blood, Urine 3+ Abnormal NEG [facility] Comment on above: Performed By: #### L ACTIC #### [facility] [address] [place], [place] [address] Embedded Linux Developer: Sarai Howell MD Clarity (U) Cloudy Abnormal CLEAR [facility] Comment on above: Performed By: #### L ACTIC #### [facility] [address] [place], [place] 115[address]83 Embedded Linux Developer: Sarai Howell MD Color (U) Yellow Normal YEL [facility] Comment on above: Performed By: #### L ACTIC #### [facility] [address] [place], [place] [address] Embedded Linux Developer: Sarai Hwoell MD Glucose Ql (U) Negative Normal NEG [facility] Comment on above: Performed By: #### L ACTIC #### [facility] [address] [place] [address] [place], [place] [id number] Embedded Linux Developer: Sarai Howell MD Ketones Ql (U) 1+ mg/dL Abnormal NEG [facility] Comment on above: Performed By: #### L ACTIC #### [facility] [address] [place] [address] [place], [place] [address]483 Embedded Linux Developer: Sarai Howell MD Leukocyte esterase Test strip Ql (U) TRACE Abnormal NEG [facility] Comment on above: Performed By: #### L ACTIC #### [facility] [address] [place], [place] 9330783 Embedded Linux Developer: Sarai Howell MD Nitrite,Ur Negative Normal [facility] Comment on above: Performed By: #### L ACTIC #### [facility] [address] [place], [place] [address] Embedded Linux Developer: Sarai Howell MD PH,Ur 6.0 Normal 5.0-9.0 [facility] Comment on above: Performed By: #### L ACTIC #### [facility] [address] [place], [place] [id number] Embedded Linux Developer: Sarai Howell MD Protein Ql (U) 1+ mg/dL Abnormal NEG [facility] Comment on above: Performed By: #### L ACTIC #### [facility] [address] [place], [place] [phone] Embedded Linux Developer: Sarai Howell MD Spec. Dairy,Ur >1.030 High 1.010-1.02 0 [facility] Comment on above: Performed By: #### L ACTIC #### [facility] [address] [place] [address] [place], [place] [id number] Embedded Linux Developer: Sarai Howell MD Urobilinogen,Ur Normal Normal 0.0-1.0 [facility] Comment on above: Performed By: #### L ACTIC #### [facility] [address] [place] [address] [place], [place] [id number] Embedded Linux Developer: Sarai Howell MD Urinalysis,Microon 3 Bacteria 1+ Abnormal NONE [facility] Comment on above: Performed By: #### L ACTIC #### [facility] [address] [place] [address] [place]. [place], [place] [id number] Embedded Linux Developer: Sarai Howell MD Epithelial cells LM Ql (Urine sed) None Normal 0-5 [facility] Comment on above: Performed By: #### L ACTIC #### [facility] [address] [place], [place] [id number] Embedded Linux Developer: Sarai Howell MD Mucus Strands TRACE Abnormal NONE [facility] Comment on above: Performed By: #### L ACTIC #### [facility] [address] [place], [place] [id number] Embedded Linux Developer: Sarai Howell MD Urine RBC's 20 TO 50 Normal 0-2 [facility] Comment on above: Performed By: #### L ACTIC #### [facility] [address] [place] [address] Embedded Linux Developer: Sarai Howell MD Urine WBC's 2 TO 5 Normal 0-5 [facility] Comment on above: Performed By: #### L ACTIC #### [facility] [address] [place] [address] Embedded Linux Developer: Sarai Howell MD XR CHEST PORTABLEon 04-25-20 XR CHEST PORTABLE EXAMINATION: ONE X-RAY VIEW OF THE CHEST 04/25/2023 3:06 pm COMPARISON: None HISTORY: ORDERING SYSTEM PROVIDED HISTORY: Cough TECHNOLOGIST PROVIDED HISTORY: Cough FINDINGS: The cardiomediastinal silhouette is mildly enlarged. Post sternotomy changes are present. Mild vascular congestion. Focal airspace disease of the right lower lobe is consistent with pneumonia. No pneumothorax. No large pleural effusion. No subdiaphragmatic free air. IMPRESSION: 1. Acute right lower lobe pneumonia. Radiographic follow-up recommended to ensure resolution. 2. Mild cardiomegaly and vascular congestive changes Interpreted by: Sarai Henson MD Signed by: Sarai Henson MD 04/25/23 Final result Normal [facility] BNPon 01-17-2023 Natriuretic peptide B (Bld) [Mass/Vol] 210.0 pg/mL Normal <=900.0 [facility] Comment on above: Performed By: #### B FLY RAIL OPERATOR, CMADM, CMP ####[facility] [address] [place] [address]Dr. Donna Malone CARDIAC MJ ADMITon 023 CK [Catalytic activity/Vol] 67 U/L Normal 39-308 [facility] Comment on above: Performed By: #### B FLY RAIL OPERATOR, CMADM, CMP ####[facility] [address] [place] [id number]. Donna Malone CK.MB [Mass/Vol] 2.51 ng/mL Normal <=3.60 [facility] Comment on above: Performed By: #### B FLY RAIL OPERATOR, CMADM, CMP ####[facility] Zzwpabhioa064[address] [place], [place] [address]Dr. Donna Malone HSTROP 9.2 pg/mL Normal 4.0-76.1 [facility] Comment on above: Result Comment: CUT- OFF POINTS HAVE BEEN ESTABLISHED BASED ON THE FOURTH UNIVERSAL DEFINITIONS OF MYOCARDIALINFARCTION. THE UPPER REFERENCE LIMIT (URL) OF TROPONIN, DEFINED THE 99TH PERCENTILE OFcTnI DISTRIBUTION IN A REFERENCE POPULATION, HAS BEEN CONFIRMED THE DECISION THRESHOLDFOR PR DIAGNOSIS. Performed By: #### B FLY RAIL OPERATOR, CMADM, CMP ####[facility] Xvlmmagoez65[address] [place] [address]Dr. Donna Malone BINDU 68 ng/mL Normal 16-96 [facility] Comment on above: Performed By: #### B FLY RAIL OPERATOR, CMADM, CMP ####[facility] Jmqxlahfmc[address] [place], [place] [address]Dr. Donna Malone CBC AUTO DIFFon 01-17-2023 BASO # 0.1 103/ul Normal 0.0-0.1 [facility] Comment on above: Performed By: #### C BC ####[facility] Ozvpwbznyz577[address] [place], [place] [address]Dr. Donna Malone Basophils/100 WBC (Bld) 0.8 % Normal 0.2-2.0 [facility] Comment on above: Performed By: #### C BC ####[facility] Kcfkjerwhh8[address] [place], [place] [address]Dr. Donna Malone EO # 0.1 103/ul Normal 0.0-0.7 [facility] Comment on above: Performed By: #### C BC ####[facility] Uwasqhkein18[address] [place], [place] [address]Dr. Donna Malone Eosinophils/100 WBC (Bld) 1.4 % Normal 0.9-7.0 [facility] Comment on above: Performed By: #### C BC ####[facility] Xncizcjocg248[address] [place], [place] [address]Dr. Donna Malone Erythrocyte distribution width (RBC) [Ratio] 14.6 % Normal 11.0-15.0 [facility] Comment on above: Performed By: #### C BC ####[facility] [address]re[address]efup[address] [place] [address]Dr. Donna Malone Hematocrit (Bld) [Volume fraction] 43.9 % Normal 42.0-54.0 [facility] Comment on above: Performed By: #### C BC ####[facility] Abkdpzjqek[address] [place] [address]Dr. Donna Malone Hemoglobin (Bld) [Mass/Vol] 14.2 g/dL Normal 14.0-18.0 [facility] Comment on above: Performed By: #### C BC ####[facility] Vvgtxilxzy[address] [place] [address]Dr. Donna Malone IG # 0.04 10e3/ul Critically high 0.00-0.03 [facility] Comment on above: Performed By: #### C BC ####[facility] Rdhnzyfhfr33[address] [place], [place] [address]Dr. Donna Malone IG % 0.4 % Normal 0.0-0.5 [facility] Comment on above: Performed By: #### C BC ####[facility] Shvdjwypnb[address] [place], [place] [address]Dr. Donna Malone LYMPH # 2.3 103/ul Normal 1.2-3.8 [facility] Comment on above: Performed By: #### C BC ####[facility] Vgqpbxjikr[address] [place], [place] [address]Dr. Donna Malone Lymphocytes/100 WBC (Bld) 25.4 % Normal 20.5-60.0 [facility] Comment on above: Performed By: #### C BC ####[facility] Mqxurueqbt7[address] [place], [place] [address]Dr. Donna Malone MANUAL DIFF REQ NO Normal [facility] Comment on above: Performed By: #### C BC ####[facility] Fdzutcytbn7[address] [place], [place] [address]Dr. Donna Malone MCH (RBC) [Entitic mass] 29.6 pg Normal 25.9-34.0 [facility] Comment on above: Performed By: #### C BC ####[facility] Zeecxrjbwu7[address] [place] [address]Dr. Donna Malone MCHC (RBC) [Mass/Vol] 32.3 g/dL Normal 29.9-35.2 [facility] Comment on above: Performed By: #### C BC ####[facility] Skqhvvwvnv026[address] [place] [address]Dr. Donna Malone MCV (RBC) [Entitic vol] 91.5 fL Normal 80.0-94.0 [facility] Comment on above: Performed By: #### C BC ####[facility] Ocojytscxq[address] [place] [address]Dr. Donna Malone MONO # 0.7 103/ul Normal 0.3-0.8 [facility] Comment on above: Performed By: #### C BC ####[facility] Nzpvebzeiq65[address] [place], [place] [address]Dr. Rubyyvan Malone Monocytes/100 WBC (Bld) 7.5 % Normal 1.7-12.0 [facility] Comment on above: Performed By: #### C BC ####[facility] Slhktm[address]uy[address] [place], [place] [address]Dr. Donna Malone NEUT # 5.9 103/ul Normal 1.4-6.5 [facility] Comment on above: Performed By: #### C BC ####[facility] Wldoqwurgp[address] [place], [place] [address]Dr. Donna Malone Neutrophils/100 WBC (Bld) 64.5 % Normal 43.0-75.0 [facility] Comment on above: Performed By: #### C BC ####[facility] Gnxqojtsju3783 [place] [address]Dr. Donna Malone Platelet mean volume (Bld) [Entitic vol] 10.6 fL Normal 9.5-13.5 [facility] Comment on above: Performed By: #### C BC ####[facility] Gwkeoyhcgv[address] [place], [place] [address]Dr. Donna Faisal PLT 296 103/ul Normal 150-450 [facility] Comment on above: Performed By: #### C BC ####[facility] M[address]zumflx[address] [place] [address]Dr. Donna Malone RBC 4.80 106/ul Normal 4.70-6.10 [facility] Comment on above: Performed By: #### C BC ####[facility] Aldjqijnfd[address]64 [place] [address]Dr. Donna Malone WBC 9.1 103/ul Normal 4.0-11.0 [facility] Comment on above: Performed By: #### C BC ####[facility] Ybavyvgcft[address] [place] [address]Dr. Donna Malone CT CSPINE WO CONon 3 CT CSPINE WO CON Normal [facility] CT HEAD WO CONon 3 CT HEAD WO CON Normal [facility] CT LSPINE WO CONon 3 CT LSPINE WO CON Normal [facility] PROF 14(COMP METB)on 023 Albumin [Mass/Vol] 3.3 g/dL Critically low 3.4-5.0 [facility] Comment on above: Performed By: #### B FLY RAIL OPERATOR, CMADM, CMP ####[facility] [address]uzvbscvfc67[address] [place] [address]Dr. Rubyyvan Faisal Albumin/Globulin [Mass ratio] 0.8 {ratio} Normal [facility] Comment on above: Performed By: #### B FLY RAIL OPERATOR, CMADM, CMP ####[facility] [address]avw[address] [place] [address]Dr. Donna Malone ALP [Catalytic activity/Vol] 55 U/L Normal 46-116 [facility] Comment on above: Performed By: #### B FLY RAIL OPERATOR, CMADM, CMP ####[facility] Ielfhvramb26[address] [place] [address]Dr. Donna Malone ALT [Catalytic activity/Vol] 15 U/L Critically low 16-63 [facility] Comment on above: Performed By: #### B FLY RAIL OPERATOR, CMADM, CMP ####[facility] Fxecmbypbl[address] [place] [address]Dr. Donna Malone Anion gap [Moles/Vol] 9.6 mmol/L Normal [facility] Comment on above: Performed By: #### B FLY RAIL OPERATOR, CMADM, CMP ####[facility] Us[address]htbcl[address] [place] [address]Dr. Donna Malone AST [Catalytic activity/Vol] 14 U/L Critically low 15-37 [facility] Comment on above: Performed By: #### B FLY RAIL OPERATOR, CMADM, CMP ####[facility] Tcysufiffo[address] [place] [address]Dr. Donna Malone Bilirubin [Mass/Vol] 0.2 mg/dL Normal 0.2-1.0 [facility] Comment on above: Performed By: #### B FLY RAIL OPERATOR, CMADM, CMP ####[facility] [address]penwnq44[address] [place] [address]Dr. Donna Malone Calcium [Mass/Vol] 8.6 mg/dL Normal 8.5-10.1 [facility] Comment on above: Performed By: #### B FLY RAIL OPERATOR, CMADM, CMP ####[facility] Doumhxcauc89[address] [place], [place] [address]Dr. Donna Malone Chloride [Moles/Vol] 107 mmol/L Normal 98-107 [facility] Comment on above: Performed By: #### B FLY RAIL OPERATOR, CMADM, CMP ####[facility] Aubsdlfyeb[address] [place], [place] [address]Dr. Donna Malone CO2 [Moles/Vol] 25.9 mmol/L Normal 21.0-32.0 [facility] Comment on above: Performed By: #### B FLY RAIL OPERATOR, CMADM, CMP ####[facility] Byoghnnvsu[address] [place], [place] [address]Dr. Donna Malone Creatinine [Mass/Vol] 1.12 mg/dL Normal 0.70-1.30 [facility] Comment on above: Performed By: #### B FLY RAIL OPERATOR, CMADM, CMP ####[facility] Y[address]cejpphmt[address] [place] [address]Dr. Donna Malone EGFR-AF MOLDOVAN >60 Normal >=60 [facility] Comment on above: Performed By: #### B FLY RAIL OPERATOR, CMADM, CMP ####[facility] Biozuqjxvp98[address] [place], [place] [address]Dr. Donna Malone EGFR-NON AF MOLDOVAN >60 Normal >=60 [facility] Comment on above: Performed By: #### B FLY RAIL OPERATOR, CMADM, CMP ####[facility] Wck[address]hrabf9[address] [place] [address]Dr. Donna Malone Globulin (S) [Mass/Vol] 4.2 g/dL Normal [facility] Comment on above: Performed By: #### B FLY RAIL OPERATOR, CMADM, CMP ####[facility] Zyivsuzjiz[address] [place] [address]Dr. Donna Malone Glucose [Mass/Vol] 163 mg/dL Critically high 74-[address] [facility] Comment on above: Performed By: #### B FLY RAIL OPERATOR, CMADM, CMP ####[facility] Siwpkawxvj027[address] [place] [address]Dr. Donna Malone Potassium [Moles/Vol] 4.5 mmol/L Normal 3.5-5.1 [facility] Comment on above: Performed By: #### B FLY RAIL OPERATOR, CMADM, CMP ####[facility] Rvqvozfelx9357 [place] [address]Dr. Donna Malone Protein [Mass/Vol] 7.5 g/dL Normal 6.4-8.2 [facility] Comment on above: Performed By: #### B FLY RAIL OPERATOR, CMADM, CMP ####[facility] Dsunjxcxbe50[address] [place] [address]Dr. Donna Malone Sodium [Moles/Vol] 138 mmol/L Normal 136-145 [facility] Comment on above: Performed By: #### B FLY RAIL OPERATOR, CMADM, CMP ####[facility] Qsabolybwl1268 [place] [address]Dr. Donna Malone Urea nitrogen [Mass/Vol] 11.0 mg/dL Normal 7.0-18.0 [facility] Comment on above: Performed By: #### B FLY RAIL OPERATOR, CMADM, CMP ####[facility] Roatxevjwa[address]87 [place] [address]Dr. Donna Malone Urea nitrogen/Creatinine [Mass ratio] 9.8 mg/mg Normal [facility] Comment on above: Performed By: #### B FLY RAIL OPERATOR, CMADM, CMP ####[facility] Tkawnxjrnk60[address] [place] [address]Dr. Donna Malone PROTIMEon 01-17-2023 INR Coag (PPP) [Relative time] 0.94 {INR} Normal [facility] Comment on above: Performed By: #### P TT, PT ####[facility] Lxbuxjkuob264[address] [place], [place] [address]Dr. Donna Malone INR GUIDELINES SEE BELOW Normal [facility] Comment on above: Result Comment: FLORESITA RED INR: 2.0 - 3.0 CONDITIONS NOT LISTED BELOW 2.5 - 3.5 FOR PROSTHETIC HEART VALVE REPLACEMENT 2.5 - 3.5 RECURRENT THROMBOSIS Performed By: #### P TT, PT ####[facility] Yikcbdxaym92[address] [place], [place] [address]Dr. Donna Malone PT Coag (PPP) [Time] 10.0 s Normal 9.0-11.6 [facility] Comment on above: Performed By: #### P TT, PT ####[facility] Onhbdjnvsg644[address] [place], [place] [address]Dr. Donna Malone PTTon 01-17-2023 aPTT Coag (Bld) [Time] 29.6 s Normal 22.3-36.2 [facility] Comment on above: Performed By: #### P TT, PT ####[facility] Ipjksrytvj139[address] [place], [place] [address]Dr. Donna Malone CBC AUTO DIFFon 11-17-2022 BASO # 0.0 103/ul Normal 0.0-0.1 [facility] Comment on above: Performed By: #### C BC ####[facility] Dxbqwbwskf313[address] [place], [place] [address]Dr. Donna Malone Basophils/100 WBC (Bld) 0.2 % Normal 0.2-2.0 [facility] Comment on above: Performed By: #### C BC ####[facility] Roglfmioah39[address] [place], [place] [address]Dr. Donna Malone EO # 0.0 103/ul Normal 0.0-0.7 [facility] Comment on above: Performed By: #### C BC ####[facility] Jexekcxdgc59[address] [place] [address]Dr. Donna Malone Eosinophils/100 WBC (Bld) 0.0 % Critically low 0.9-7.0 [facility] Comment on above: Performed By: #### C BC ####[facility] Kwpzdosehv1358 [place] [address]Dr. Donna Malone Erythrocyte distribution width (RBC) [Ratio] 14.5 % Normal 11.0-15.0 [facility] Comment on above: Performed By: #### C BC ####[facility] Hzxfpcfaqj05[address] [place], [place] [address]Dr. Donna Malone Hematocrit (Bld) [Volume fraction] 39.6 % Critically low 42.0-54.0 [facility] Comment on above: Performed By: #### C BC ####[facility] Hdkxswzyrm77[address] [place], [place] [address]Dr. Donna Malone Hemoglobin (Bld) [Mass/Vol] 13.3 g/dL Critically low 14.0-18.0 [facility] Comment on above: Performed By: #### C BC ####[facility] Clnxguzxsw33[address] [place], [place] [address]Dr. Donna Malone IG # 0.06 10e3/ul Critically high 0.00-0.03 [facility] Comment on above: Performed By: #### C BC ####[facility] Lzhozextcl683[address] [place], [place] [address]Dr. Donna Malone IG % 0.5 % Normal 0.0-0.5 [facility] Comment on above: Performed By: #### C BC ####[facility] Jgbakbjqky2964[address] [place], [place] [address]Dr. Donna Malone LYMPH # 1.0 103/ul Critically low 1.2-3.8 [facility] Comment on above: Performed By: #### C BC ####[facility] Qwnkfacmgm8[address] [place], [place] [address]Dr. Donna Malone Lymphocytes/100 WBC (Bld) 8.3 % Critically low 20.5-60.0 [facility] Comment on above: Performed By: #### C BC ####[facility] Fwzbcqoxix[address] [place] [address]Dr. Donna Malone MANUAL DIFF REQ NO Normal [facility] Comment on above: Performed By: #### C BC ####[facility] Bytavhjgod80[address] [place] [id number]. Donna Malone MCH (RBC) [Entitic mass] 29.4 pg Normal 25.9-34.0 [facility] Comment on above: Performed By: #### C BC ####[facility] Mzvkakmeet4779 [place] [address]Dr. Donna Malone MCHC (RBC) [Mass/Vol] 33.6 g/dL Normal 29.9-35.2 [facility] Comment on above: Performed By: #### C BC ####[facility] Odrgfggcpl906[address] [place], [place] [address]Dr. Donna Malone MCV (RBC) [Entitic vol] 87.6 fL Normal 80.0-94.0 [facility] Comment on above: Performed By: #### C BC ####[facility] Zfofvskaoz13[address] [place], [place] [address]Dr. Donna Malone MONO # 0.8 103/ul Normal 0.3-0.8 [facility] Comment on above: Performed By: #### C BC ####[facility] Abtxsmmcfd34[address] [place] [address]Dr. Donna Malone Monocytes/100 WBC (Bld) 6.6 % Normal 1.7-12.0 [facility] Comment on above: Performed By: #### C BC ####[facility] Ohitldgteu34[address] [place], [place] [address]DrElizabeth Malone NEUT # 10.2 103/ul Critically high 1.4-6.5 [facility] Comment on above: Performed By: #### C BC ####[facility] Qbuchyvfzm965[address] [place], [place] [address]Dr. Donna Malone Neutrophils/100 WBC (Bld) 84.4 % Critically high 43.0-75.0 [facility] Comment on above: Performed By: #### C BC ####[facility] Fnkeposxck6176 [place] [address]Dr. Donna Malone Platelet mean volume (Bld) [Entitic vol] 11.5 fL Normal 9.5-13.5 [facility] Comment on above: Performed By: #### C BC ####[facility] Itirespmxb5168 [place] [address]Dr. Donna Malone PLT 204 103/ul Normal 150-450 [facility] Comment on above: Performed By: #### C BC ####[facility] Ecbaajdacz58[address] [place] [address]DrElizabeth Malone RBC 4.52 106/ul Critically low 4.70-6.10 [facility] Comment on above: Performed By: #### C BC ####[facility] Ddvwwejqdo7278 [place] [address]DrElizabeth Malone WBC 12.0 103/ul Critically high 4.0-11.0 [facility] Comment on above: Performed By: #### C BC ####[facility] Ochbcmonlr9[address] [place] [address]DrElizabeth Malone MAGNESIUMon 11-17-2022 Magnesium [Mass/Vol] 1.9 mg/dL Normal 1.8-2.4 [facility] Comment on above: Performed By: #### C MP, MG ####[facility] Twwieurjts20[address] [place] [address]DrElizabeth Malone PROF 14(COMP METB)on 023 Albumin [Mass/Vol] 3.2 g/dL Critically low 3.4-5.0 [facility] Comment on above: Performed By: #### C MP, MG ####[facility] Dedsopfray16[address] [place] [address]DrElizabeth Malone Albumin/Globulin [Mass ratio] 1.0 {ratio} Normal [facility] Comment on above: Performed By: #### C MP, MG ####[facility] Gwcoqovlga64[address] [place] [address]DrElizabeth Malone ALP [Catalytic activity/Vol] 51 U/L Normal 46-116 [facility] Comment on above: Performed By: #### C MP, MG ####[facility] Bueihkulyf[address] [place] [address]Dr. Donna Malone ALT [Catalytic activity/Vol] 16 U/L Normal 16-63 [facility] Comment on above: Performed By: #### C MP, MG ####[facility] Rlmrggiuhy60[address] [place], [place] [address]Dr. Donna Malone Anion gap [Moles/Vol] 14.7 mmol/L Normal Th [facility] Comment on above: Performed By: #### C MP, MG ####[facility] Rbfovzzbgp967[address] [place], [place] [address]Dr. Donna Malone AST [Catalytic activity/Vol] 24 U/L Normal 15-37 [facility] Comment on above: Performed By: #### C MP, MG ####[facility] Lwytvpkozg39[address] [place], [place] [address]Dr. Donna Malone Bilirubin [Mass/Vol] 0.5 mg/dL Normal 0.2-1.0 [facility] Comment on above: Performed By: #### C MP, MG ####[facility] Crgbonvmvy8[address] [place], [place] [address]Dr. Donna Malone Calcium [Mass/Vol] 8.6 mg/dL Normal 8.5-10.1 [facility] Comment on above: Performed By: #### C MP, MG ####[facility] Mfqtfcnsia832[address] [place], [place] [address]Dr. Donna Faisal Chloride [Moles/Vol] 108 mmol/L Critically high 98-107 [facility] Comment on above: Performed By: #### C MP, MG ####[facility] Tczgmvgjoc336[address] [place], [place] [address]Dr. Rubyyvan Malone CO2 [Moles/Vol] 21.6 mmol/L Normal 21.0-32.0 [facility] Comment on above: Performed By: #### C MP, MG ####[facility] Shjgcuwuxt27[address] [place], [place] [address]Dr. Donna Malone Creatinine [Mass/Vol] 0.83 mg/dL Normal 0.70-1.30 [facility] Comment on above: Performed By: #### C MP, MG ####[facility] Qxjmvkxeov3557 [place] [address]Dr. Donna Malone EGFR-AF MOLDOVAN >60 Normal >=60 [facility] Comment on above: Performed By: #### C MP, MG ####[facility] Dwwzetdxys4080 [place] [address]Dr. Donna Faisal EGFR-NON AF MOLDOVAN >60 Normal >=60 [facility] Comment on above: Performed By: #### C MP, MG ####[facility] Jgdxsoraad1035[address] [place], [place] [address]Dr. Donna Faisal Globulin (S) [Mass/Vol] 3.2 g/dL Normal [facility] Comment on above: Performed By: #### C MP, MG ####[facility] Wkpnsortgn544[address] [place], [place] [address]Dr. Donna Faisal Glucose [Mass/Vol] 162 mg/dL Critically high 74-106 [facility] Comment on above: Performed By: #### C MP, MG ####[facility] Hegvbufiwr77[address] [place], [place] [address]Dr. Donna Faisal Potassium [Moles/Vol] 3.3 mmol/L Critically low 3.5-5.1 [facility] Comment on above: Performed By: #### C MP, MG ####[facility] Ipuyqmxswk6247 [place] [address]Dr. Donna Faisal Protein [Mass/Vol] 6.4 g/dL Normal 6.4-8.2 [facility] Comment on above: Performed By: #### C MP, MG ####[facility] Yrcjptwswr7940[address] [place], [place] [address]Dr. Donna Faisal Sodium [Moles/Vol] 141 mmol/L Normal 136-145 [facility] Comment on above: Performed By: #### C MP, MG ####[facility] Wkpsctfyvz99[address] [place], [place] [address]Dr. Donna Malone Urea nitrogen [Mass/Vol] 12.0 mg/dL Normal 7.0-18.0 [facility] Comment on above: Performed By: #### C MP, MG ####[facility] Osryxwqzck066[address] [place], [place] [address]Dr. Donna Malone Urea nitrogen/Creatinine [Mass ratio] 14.5 mg/mg Normal [facility] Comment on above: Performed By: #### C MP, MG ####[facility] Jipovljvdo4[address] [place], [place] [address]Dr. Donna Malone AMMONIAon 11-16-2022 Ammonia (P) [Mass/Vol] ug/dL Critically low 11-32 [facility] Comment on above: Performed By: #### A MM ####[facility] Lpdbbmnrtl16[address] [place], [place] [address]Dr. Donna Malone CBC AUTO DIFFon 11-16-2022 BASO # 0.0 103/ul Normal 0.0-0.1 [facility] Comment on above: Performed By: #### C BC ####[facility] Ottahvttae8[address] [place], [place] [address]Dr. Donna Malone Basophils/100 WBC (Bld) 0.2 % Normal 0.2-2.0 [facility] Comment on above: Performed By: #### C BC ####[facility] Ypfkfiqezt032[address] [place], [place] [address]Dr. Donna Malone EO # 0.0 103/ul Normal 0.0-0.7 [facility] Comment on above: Performed By: #### C BC ####[facility] Otevrxxsvg2637[address] [place], [place] [address]Dr. Donna Malone Eosinophils/100 WBC (Bld) 0.0 % Critically low 0.9-7.0 [facility] Comment on above: Performed By: #### C BC ####[facility] Levtesenyi405[address] [place], [place] [address]Dr. Donna Malone Erythrocyte distribution width (RBC) [Ratio] 14.4 % Normal 11.0-15.0 [facility] Comment on above: Performed By: #### C BC ####[facility] Rxpjhqyssf0790 [place] [address]Dr. Donna Malone Hematocrit (Bld) [Volume fraction] 38.6 % Critically low 42.0-54.0 [facility] Comment on above: Performed By: #### C BC ####[facility] Wgailqnhfu38[address] [place], [place] [address]Dr. Donna Malone Hemoglobin (Bld) [Mass/Vol] 13.1 g/dL Critically low 14.0-18.0 [facility] Comment on above: Performed By: #### C BC ####[facility] Apxpvtvvnq23[address] [place], [place] [address]Dr. Donna Malone IG # 0.05 10e3/ul Critically high 0.00-0.03 [facility] Comment on above: Performed By: #### C BC ####[facility] Ldhruejtxz333066 [address] [place], [place] [address]Dr. Donna Malone IG % 0.5 % Normal 0.0-0.5 [facility] Comment on above: Performed By: #### C BC ####[facility] Qysblkdeeq901966 [address] [place], [place] [address]Dr. Donna Malone LYMPH # 1.0 103/ul Critically low 1.2-3.8 [facility] Comment on above: Performed By: #### C BC ####[facility] Nufppcixdv5640[address] [place], [place] [address]Dr. Donna Malone Lymphocytes/100 WBC (Bld) 10.8 % Critically low 20.5-60.0 [facility] Comment on above: Performed By: #### C BC ####[facility] Zctpkkooss130866 [address] [place], [place] [address]Dr. Donna Malone MANUAL DIFF REQ NO Normal [facility] Comment on above: Performed By: #### C BC ####[facility] Wimyotvbjb7440[address] [place], [place] [address]Dr. Donna Malone MCH (RBC) [Entitic mass] 29.4 pg Normal 25.9-34.0 [facility] Comment on above: Performed By: #### C BC ####[facility] Xokghhczpq4436 [place] [id number]. Donna Faisal MCHC (RBC) [Mass/Vol] 33.9 g/dL Normal 29.9-35.2 [facility] Comment on above: Performed By: #### C BC ####[facility] Tdjlbtordw9084 [place] [id number]. Donna Malone MCV (RBC) [Entitic vol] 86.7 fL Normal 80.0-94.0 [facility] Comment on above: Performed By: #### C BC ####[facility] Pdngopnvuz759666 [address] [place], [place] [address]Dr. Donna Malone MONO # 0.4 103/ul Normal 0.3-0.8 [facility] Comment on above: Performed By: #### C BC ####[facility] Fyqqrzcqxd379466 [address] [place], [place] [address]Dr. Donna Malone Monocytes/100 WBC (Bld) 4.4 % Normal 1.7-12.0 [facility] Comment on above: Performed By: #### C BC ####[facility] Chzebeawza516766 [address] [place], [place] [address]Dr. Donna Malone NEUT # 7.9 103/ul Critically high 1.4-6.5 [facility] Comment on above: Performed By: #### C BC ####[facility] Bjqklacqos523766 [address] [place], [place] [address]Dr. Donna Malone Neutrophils/100 WBC (Bld) 84.1 % Critically high 43.0-75.0 [facility] Comment on above: Performed By: #### C BC ####[facility] Uxscshgmfq637166 [address] [place], [place] [address]Dr. Donna Malone Platelet mean volume (Bld) [Entitic vol] 11.3 fL Normal 9.5-13.5 [facility] Comment on above: Performed By: #### C BC ####[facility] Msqfocnhev850666 [address] [place], [place] [address]Dr. Donna Malone PLT 201 103/ul Normal 150-450 [facility] Comment on above: Performed By: #### C BC ####[facility] Bpezaaygsx7880 [place] [id number]. Donna Malone RBC 4.45 106/ul Critically low 4.70-6.10 [facility] Comment on above: Performed By: #### C BC ####[facility] Notxuhbgar5832 [place] [id number]. Donna Malone WBC 9.3 103/ul Normal 4.0-11.0 [facility] Comment on above: Performed By: #### C BC ####[facility] Yklcoflxkc5870 [place] [address]Dr. Donna Malone GLYCOHEMOGLOBIN A1Con 2022 ADA RECOMMENDATION SEE BELOW Normal [facility] Comment on above: Result Comment: ADA RECOMMENDED LIMIT 4.0 - 6.0 ADA THERAPEUTIC TARGET < 7.0 ACTION SUGGESTED > 7.0 Performed By: #### A 1C ####[facility] Diacpkeidz948966 [address] [place], [place] [address]Dr. Donna Malone Glucose [Mass/Vol] 128 mg/dL Normal [facility] Comment on above: Performed By: #### A 1C ####[facility] Jjahiuwqtl911266 [address] [place], [place] [address]Dr. Donna Malone HbA1c (Bld) [Mass fraction] 6.1 % Normal 4.5-6.2 [facility] Comment on above: Performed By: #### A 1C ####[facility] Eqcrkrftvs011466 [address] [place], [place] [address]Dr. Donna Malone MAGNESIUMon 11-16-2022 Magnesium [Mass/Vol] 1.8 mg/dL Normal 1.8-2.4 [facility] Comment on above: Performed By: #### C MP, MG ####[facility] Vrhqxufbuy367366 [address] [place], [place] [address]Dr. Donna Malone POINT OF CARE GLUCOSEon 11-07 Glucose [Mass/Vol] 170 mg/dL Critically high 74-[address] [facility] Comment on above: Performed By: #### P OCGLUC ####[facility] Dgqnxwlcdy552566 [address] [place], [place] [address]Dr. Donna Malone Glucose [Mass/Vol] 158 mg/dL Critically high 74-106 [facility] Comment on above: Performed By: #### P OCGLUC ####[facility] Ssogcrfrqd9784 [place] [address]Dr. Donna Faisal Glucose [Mass/Vol] 176 mg/dL Critically high 74-106 [facility] Comment on above: Performed By: #### P OCGLUC ####[facility] Qutocbfbcu4771 [place] [address]Dr. Donna Malone PROF 14(COMP METB)on 023 Albumin [Mass/Vol] 3.1 g/dL Critically low 3.4-5.0 [facility] Comment on above: Performed By: #### C MP, MG ####[facility] Qwomaqpeku9075 [place] [address]Dr. uRbyyvan Faisal Albumin/Globulin [Mass ratio] 0.9 {ratio} Normal [facility] Comment on above: Performed By: #### C MP, MG ####[facility] Lbnsihkdbk537266 [address] [place], [place] [address]Dr. Donna Malone ALP [Catalytic activity/Vol] 52 U/L Normal 46-116 [facility] Comment on above: Performed By: #### C MP, MG ####[facility] Xkvpglcwdg904666 [address] [place], [place] [address]Dr. Donna Malone ALT [Catalytic activity/Vol] 13 U/L Critically low 16-63 [facility] Comment on above: Performed By: #### C MP, MG ####[facility] Cjsdzpjqxa0994 [place] [address]Dr. Donna Malone Anion gap [Moles/Vol] 15.7 mmol/L Normal [facility] Comment on above: Performed By: #### C MP, MG ####[facility] Fuykjtbpor123466 [address] [place], [place] [address]Dr. Donna Malone AST [Catalytic activity/Vol] 16 U/L Normal 15-37 [facility] Comment on above: Performed By: #### C MP, MG ####[facility] Vyandxwkts648[address] [place], [place] [id number]. Donna Malone Bilirubin [Mass/Vol] 0.5 mg/dL Normal 0.2-1.0 [facility] Comment on above: Performed By: #### C MP, MG ####[facility] Wluhfqegwj636166 [address] [place], [place] [address]Dr. Donna Malone Calcium [Mass/Vol] 8.6 mg/dL Normal 8.5-10.1 [facility] Comment on above: Performed By: #### C MP, MG ####[facility] Tmezcnspvz910566 [address] [place], [place] [address]Dr. Donna Malone Chloride [Moles/Vol] 109 mmol/L Critically high 98-107 [facility] Comment on above: Performed By: #### C MP, MG ####[facility] Mdezlmxfqt390766 [address] [place], [place] [address]Dr. Donna Malone CO2 [Moles/Vol] 21.7 mmol/L Normal 21.0-32.0 [facility] Comment on above: Performed By: #### C MP, MG ####[facility] Kzpqkmfxgx823766 [address] [place], [place] [address]Dr. Donna Malone Creatinine [Mass/Vol] 0.99 mg/dL Normal 0.70-1.30 [facility] Comment on above: Performed By: #### C MP, MG ####[facility] Vzbkhnaphk524166 [address] [place], [place] [address]Dr. Donna Malone EGFR-AF MOLDOVAN >60 Normal >=60 [facility] Comment on above: Performed By: #### C MP, MG ####[facility] Rrkjufxynr829066 [address] [place], [place] [address]Dr. Donna Malone EGFR-NON AF MOLDOVAN >60 Normal >=60 [facility] Comment on above: Performed By: #### C MP, MG ####[facility] Tksutkdlzu643166 [address] [place], [place] [address]Dr. Donna Malone Globulin (S) [Mass/Vol] 3.3 g/dL Normal [facility] Comment on above: Performed By: #### C MP, MG ####[facility] Nviczawwjs9588 [place] [address]Dr. Donna Malone Glucose [Mass/Vol] 168 mg/dL Critically high 74-[address] [facility] Comment on above: Performed By: #### C MP, MG ####[facility] Iomuagnyfe173366 [address] [place], [place] [address]Dr. Donna Malone Potassium [Moles/Vol] 3.4 mmol/L Critically low 3.5-5.1 [facility] Comment on above: Performed By: #### C MP, MG ####[facility] Czplgmhojh884166 [address] [place], [place] [address]Dr. Donna Malone Protein [Mass/Vol] 6.4 g/dL Normal 6.4-8.2 [facility] Comment on above: Performed By: #### C MP, MG ####[facility] Qaxdjsuefz683366 [address] [place], [place] [address]Dr. Donna Malone Sodium [Moles/Vol] 143 mmol/L Normal 136-145 [facility] Comment on above: Performed By: #### C MP, MG ####[facility] Npyzxcfcgv597966 [address] [place], [place] [address]Dr. Donna Malone Urea nitrogen [Mass/Vol] 9.0 mg/dL Normal 7.0-18.0 [facility] Comment on above: Performed By: #### C MP, MG ####[facility] Zazicwzcne994566 [address] [place], [place] [address]Dr. Donna Malone Urea nitrogen/Creatinine [Mass ratio] 9.1 mg/mg Normal [facility] Comment on above: Performed By: #### C MP, MG ####[facility] Vcreberuym449366 [address] [place], [place] [address]Dr. Donna Faisal XR CHEST 2 Von 11-16-2022 XR CHEST 2 V Normal [facility] AMMONIAon 11-15-2022 Ammonia (P) [Moles/Vol] 20 umol/L Normal 11-32 [facility] Comment on above: Performed By: #### A MM ####[facility] Mjqfddpvfi767766 [address] [place], [place] [address]Dr. Donna Faisal CBC AUTO DIFFon 11-15-2022 BASO # 0.0 103/ul Normal 0.0-0.1 [facility] Comment on above: Performed By: #### C BC ####[facility] Jsrazakcku7398 [place] [address]Dr. Donna Malone Basophils/100 WBC (Bld) 0.5 % Normal 0.2-2.0 [facility] Comment on above: Performed By: #### C BC ####[facility] Whzakhqqin148366 [address] [place], [place] [address]Dr. Donna Faisal EO # 0.1 103/ul Normal 0.0-0.7 [facility] Comment on above: Performed By: #### C BC ####[facility] Sttawbfltm212166 [address] [place], [place] [address]Dr. Donna Faisal Eosinophils/100 WBC (Bld) 1.4 % Normal 0.9-7.0 [facility] Comment on above: Performed By: #### C BC ####[facility] Detclucbhq822566 [address] [place], [place] [address]Dr. Donna Faisal Erythrocyte distribution width (RBC) [Ratio] 14.6 % Normal 11.0-15.0 [facility] Comment on above: Performed By: #### C BC ####[facility] Ywfnsizjsa638066 [address] [place], [place] [address]Dr. Donna Malone Hematocrit (Bld) [Volume fraction] 36.8 % Critically low 42.0-54.0 [facility] Comment on above: Performed By: #### C BC ####[facility] Yxmxfolfmr273366 [address] [place], [place] [address]Dr. Donna Malone Hemoglobin (Bld) [Mass/Vol] 12.1 g/dL Critically low 14.0-18.0 [facility] Comment on above: Performed By: #### C BC ####[facility] Utkvbwmngt016866 [address] [place], [place] [address]Dr. Donna Malone IG # 0.01 10e3/ul Normal 0.00-0.03 [facility] Comment on above: Performed By: #### C BC ####[facility] Gtxqhgkdwj540366 [address] [place], [place] [address]Dr. Donna Malone IG % 0.2 % Normal 0.0-0.5 [facility] Comment on above: Performed By: #### C BC ####[facility] Xeaksqvesd9359 [place] [address]DrElizabeth Malone LYMPH # 1.7 103/ul Normal 1.2-3.8 [facility] Comment on above: Performed By: #### C BC ####[facility] Crftecnhrx2536 [place] [address]DrElizabeth Malone Lymphocytes/100 WBC (Bld) 27.0 % Normal 20.5-60.0 [facility] Comment on above: Performed By: #### C BC ####[facility] Ouqkuzidor159666 [address] [place], [place] [address]DrElizabeth Malone MANUAL DIFF REQ NO Normal [facility] Comment on above: Performed By: #### C BC ####[facility] Gpevvhdkws397766 [address] [place], [place] [address]DrElizabeth Malone MCH (RBC) [Entitic mass] 29.5 pg Normal 25.9-34.0 [facility] Comment on above: Performed By: #### C BC ####[facility] Actuvecrzz356466 [address] [place], [place] [address]DrElizabeth Malone MCHC (RBC) [Mass/Vol] 32.9 g/dL Normal 29.9-35.2 [facility] Comment on above: Performed By: #### C BC ####[facility] Sxdrptqbtb727366 [address] [place], [place] [address]DrElizabeth Malone MCV (RBC) [Entitic vol] 89.8 fL Normal 80.0-94.0 [facility] Comment on above: Performed By: #### C BC ####[facility] Jkjrhqophy047466 [address] [place], [place] [address]DrElizabeth Malone MONO # 0.4 103/ul Normal 0.3-0.8 [facility] Comment on above: Performed By: #### C BC ####[facility] Errnfanbyu723766 [address] [place], [place] [address]DrElizabeth Malone Monocytes/100 WBC (Bld) 6.7 % Normal 1.7-12.0 [facility] Comment on above: Performed By: #### C BC ####[facility] Niablbvuqt1072 [place] [address]Dr. Donna Malone NEUT # 4.0 103/ul Normal 1.4-6.5 [facility] Comment on above: Performed By: #### C BC ####[facility] Cfzlogzvux2093 [place] [address]Dr. Donna Malone Neutrophils/100 WBC (Bld) 64.2 % Normal 43.0-75.0 [facility] Comment on above: Performed By: #### C BC ####[facility] Qqwhciqiga0664 [place] [address]Dr. Donna Malone Platelet mean volume (Bld) [Entitic vol] 11.3 fL Normal 9.5-13.5 [facility] Comment on above: Performed By: #### C BC ####[facility] Iuxkxjbixh834866 [address] [place], [place] [address]Dr. Donna Malone PLT 169 103/ul Normal 150-450 [facility] Comment on above: Performed By: #### C BC ####[facility] Onzaufxnkt166[address] [place], [place] [address]Dr. Donna Malone RBC 4.10 106/ul Critically low 4.70-6.10 [facility] Comment on above: Performed By: #### C BC ####[facility] Lgsyryundi7585[address] [place], [place] [address]Dr. Donna Malone WBC 6.3 103/ul Normal 4.0-11.0 [facility] Comment on above: Performed By: #### C BC ####[facility] Zkkmatnlri8068[address] [place], [place] [address]Dr. Donna Malone GLYCOHEMOGLOBIN A1Con 2022 ADA RECOMMENDATION SEE BELOW Normal [facility] Comment on above: Result Comment: ADA RECOMMENDED LIMIT 4.0 - 6.0 ADA THERAPEUTIC TARGET < 7.0 ACTION SUGGESTED > 7.0 Performed By: #### A 1C ####[facility] Dzznbcdqqx0883 [place] [address]Dr. Donna Malone Glucose [Mass/Vol] 128 mg/dL Normal [facility] Comment on above: Performed By: #### A 1C ####[facility] Zwfhcvedvp0157 [place] [address]Dr. Donna Malone HbA1c (Bld) [Mass fraction] 6.1 % Normal 4.5-6.2 [facility] Comment on above: Performed By: #### A 1C ####[facility] Bsmrzzgrvc5556 [place] [address]Dr. Rubyyvan Malone MAGNESIUMon 11-15-2022 Magnesium [Mass/Vol] 1.6 mg/dL Critically low 1.8-2.4 [facility] Comment on above: Performed By: #### C MP, MG ####[facility] Nobrckxcqz2314 [place] [address]Dr. Rubyyvan Malone POINT OF CARE GLUCOSEon Glucose [Mass/Vol] 165 mg/dL Critically high 74-106 [facility] Comment on above: Performed By: #### P OCGLUC ####[facility] Rjygdcnxtg8612 [place] [address]Dr. Donna Malone Glucose [Mass/Vol] 155 mg/dL Critically high 74-106 [facility] Comment on above: Performed By: #### P OCGLUC ####[facility] Nqrnuljoct8682 [place] [address]Dr. Donna Malone Glucose [Mass/Vol] 111 mg/dL Critically high 74-106 [facility] Comment on above: Performed By: #### P OCGLUC ####[facility] Cjvsxposlf4207 [place] [address]Dr. Donna Malone PROF 14(COMP METB)on 023 Albumin [Mass/Vol] 2.9 g/dL Critically low 3.4-5.0 [facility] Comment on above: Performed By: #### C MP, MG ####[facility] Uwltmcubfx6759 [place] [address]Dr. Rubyyvan Malone Albumin/Globulin [Mass ratio] 1.0 {ratio} Normal [facility] Comment on above: Performed By: #### C MP, MG ####[facility] Ytepaibvdt0332 [place] [address]Dr. Donna Malone ALP [Catalytic activity/Vol] 38 U/L Critically low 46-116 [facility] Comment on above: Performed By: #### C MP, MG ####[facility] Pdvzgsjkkx8152 [place] [address]Dr. Donna Malone ALT [Catalytic activity/Vol] 13 U/L Critically low 16-63 [facility] Comment on above: Performed By: #### C MP, MG ####[facility] Pvgkqktqdb9061 [place] [address]Dr. Donna Faisal Anion gap [Moles/Vol] 11.8 mmol/L Normal [facility] Comment on above: Performed By: #### C MP, MG ####[facility] Enyuqhakzn3302 [place] [address]Dr. Donna Faisal AST [Catalytic activity/Vol] 15 U/L Normal 15-37 [facility] Comment on above: Performed By: #### C MP, MG ####[facility] Swepekhioq0114 [place] [address]Dr. Donna Faisal Bilirubin [Mass/Vol] 0.4 mg/dL Normal 0.2-1.0 [facility] Comment on above: Performed By: #### C MP, MG ####[facility] Abggqxyara1106 [place] [address]Dr. Donna Faisal Calcium [Mass/Vol] 8.2 mg/dL Critically low 8.5-10.1 [facility] Comment on above: Performed By: #### C MP, MG ####[facility] Cgaeaipeyj7526 [place] [address]Dr. Donna Malone Chloride [Moles/Vol] 111 mmol/L Critically high 98-107 [facility] Comment on above: Performed By: #### C MP, MG ####[facility] Oatzxlmfos0164 [place] [address]Dr. Donna Malone CO2 [Moles/Vol] 27.9 mmol/L Normal 21.0-32.0 [facility] Comment on above: Performed By: #### C MP, MG ####[facility] Ikwjhnnmzi6853 [place] [address]Dr. Donna Malone Creatinine [Mass/Vol] 0.99 mg/dL Normal 0.70-1.30 [facility] Comment on above: Performed By: #### C MP, MG ####[facility] Dqqggiqpzm9805 [place] [address]Dr. Donna Malone EGFR-AF MOLDOVAN >60 Normal >=60 [facility] Comment on above: Performed By: #### C MP, MG ####[facility] Kbozdvupci8038 [place] [address]Dr. Donna Faisal EGFR-NON AF MOLDOVAN >60 Normal >=60 [facility] Comment on above: Performed By: #### C MP, MG ####[facility] Qyhzuvoxha094966 [address] [place], [place] [address]Dr. Donna Faisal Globulin (S) [Mass/Vol] 2.9 g/dL Normal [facility] Comment on above: Performed By: #### C MP, MG ####[facility] Dvnqluojcn5274 [place] [address]Dr. Donna Faisal Glucose [Mass/Vol] 88 mg/dL Normal 74-106 [facility] Comment on above: Performed By: #### C MP, MG ####[facility] Usyfpusomf5029 [place] [address]Dr. Donna Faisal Potassium [Moles/Vol] 3.7 mmol/L Normal 3.5-5.1 [facility] Comment on above: Performed By: #### C MP, MG ####[facility] Jgikgmnopa0567 [place] [address]Dr. Donna Faisal Protein [Mass/Vol] 5.8 g/dL Critically low 6.4-8.2 [facility] Comment on above: Performed By: #### C MP, MG ####[facility] Krilsfbdqg8782 [place] [address]Dr. Donna Malone Sodium [Moles/Vol] 147 mmol/L Critically high 136-[address] [facility] Comment on above: Performed By: #### C MP, MG ####[facility] Qobuokhazy4619 [place] [address]Dr. Donna Malone Urea nitrogen [Mass/Vol] 12.0 mg/dL Normal 7.0-18.0 [facility] Comment on above: Performed By: #### C MP, MG ####[facility] Vmrqderwlh299566 [address] [place], [place] [address]Dr. Donna Malone Urea nitrogen/Creatinine [Mass ratio] 12.1 mg/mg Normal [facility] Comment on above: Performed By: #### C MP, MG ####[facility] Gvhvpvgeop880766 [address] [place], [place] [address]Dr. Donna Malone ACETONE SERUMon 11-14-2022 ACETONE Negative Normal NEGATIVE [facility] Comment on above: Performed By: #### A CETON ####[facility] Mjsfrwiwkw6455[address] [place], [place] [address]Dr. Donna Malone AMMONIAon 11-14-2022 Ammonia (P) [Moles/Vol] 17 umol/L Normal 11-32 [facility] Comment on above: Performed By: #### A MM ####[facility] Loiysaxlqk706966 [address] [place], [place] [address]Dr. Donna Malone BLOOD GASES BTYon 11-14-2022 02 MODE ROOM AIR Normal [facility] Comment on above: Performed By: #### A BG ####[facility] Pyfgiuknwh629266 [address] [place], [place] [address]Dr. Donna Malone ALLENS TEST Positive Normal [facility] Comment on above: Performed By: #### A BG ####[facility] Jnnuxoydkt618166 [address] [place], [place] [address]Dr. Donna Malone Base excess Calc (Bld) [Moles/Vol] 1.1 mmol/L Normal -2.0-2.0 [facility] Comment on above: Performed By: #### A BG ####[facility] Opokirevef686466 [address] [place], [place] [address]Dr. Donna Malone BIPAP PRESSURE Normal [facility] Comment on above: Performed By: #### A BG ####[facility] Pzqmukafzl6616 [place] [address]Dr. Donna Malone CPAP [facility] Comment on above: Performed By: #### A BG ####[facility] Rqydnfcwly5222 [place] [address]Dr. Donna Malone FIO2 [facility] Comment on above: Performed By: #### A BG ####[facility] Wralbbehjd26[address] [place], [place] [address]Dr. Donna Malone HCO3 (Bld) [Moles/Vol] 26.0 mmol/L Normal 22.0-26.0 [facility] Comment on above: Performed By: #### A BG ####[facility] Lqhmifprap6418[address] [place], [place] [address]Dr. Donna Malone LPM [facility] Comment on above: Performed By: #### A BG ####[facility] Hjbxzcnhvj722[address] [place], [place] [address]Dr. Donna Malone MINUTE VOLUME [facility] Comment on above: Performed By: #### A BG ####[facility] Xljadqpmns635066 [address] [place], [place] [address]Dr. Donna Malone Oxygen (Bld) [Partial pressure] 62.0 mm[Hg] Critically low 80.0-100.0 [facility] Comment on above: Performed By: #### A BG ####[facility] Yygytwtfhr359066 [address] [place], [place] [address]Dr. Donna Malone Oxygen saturation in Blood 91.9 % Critically low 95.0-100.0 [facility] Comment on above: Performed By: #### A BG ####[facility] Hfqyatameb147766 [address] [place], [place] [address]Dr. Donna Malone PCO2 42.8 mmHg Normal 35.0-45.0 [facility] Comment on above: Performed By: #### A BG ####[facility] Zerlyvixei514666 [address] [place], [place] [address]Dr. Donna Malone PEEP [facility] Comment on above: Performed By: #### A BG ####[facility] Cdbshzabtp4007 [place] [address]Dr. Donna Malone pH (Bld) 7.392 [pH] Normal 7.350-7.45 0 [facility] Comment on above: Performed By: #### A BG ####[facility] Ilisarbban4301 [place] [address]Dr. Donna Malone PIP [facility] Comment on above: Performed By: #### A BG ####[facility] Romtfpcpyx695366 [address] [place], [place] [address]Dr. Donna Malone PS [facility] Comment on above: Performed By: #### A BG ####[facility] Imcpvsdrzp567766 [address] [place], [place] [address]Dr. Donna Malone PUNCTURE SITE LR [facility] Comment on above: Performed By: #### A BG ####[facility] Vfcmbqatse273666 [address] [place], [place] [address]Dr. Donna Malone RATE [facility] Comment on above: Performed By: #### A BG ####[facility] Zofsmeidod987966 [address] [place], [place] [address]Dr. Donna Malone VENT MODE [facility] Comment on above: Performed By: #### A BG ####[facility] Gkrpitigsz794266 [address] [place], [place] [address]Dr. Donna Malone VT [facility] Comment on above: Performed By: #### A BG ####[facility] Bnwqomurfb286166 [address] [place], [place] [address]Dr. Donna Malone BNPon 11-14-2022 Natriuretic peptide B (Bld) [Mass/Vol] 148.0 pg/mL Normal <=900.0 [facility] Comment on above: Performed By: #### B FLY RAIL OPERATOR, CMP, HSTROPN ####[facility] Hpzcjsagxg1128[address] [place], [place] [address]Dr. Donna Malone CBC AUTO DIFFon 11-14-2022 BASO # 0.0 103/ul Normal 0.0-0.1 [facility] Comment on above: Performed By: #### C BC ####[facility] Emmtyasvxm0788 [place] [id number]. Donna Malone Basophils/100 WBC (Bld) 0.5 % Normal 0.2-2.0 [facility] Comment on above: Performed By: #### C BC ####[facility] Mqbvajuavx818[address] [place], [place] [address]Dr. Donna Malone EO # 0.1 103/ul Normal 0.0-0.7 [facility] Comment on above: Performed By: #### C BC ####[facility] Praosznpjp7940[address] [place] [address]Dr. Donna Malone Eosinophils/100 WBC (Bld) 0.6 % Critically low 0.9-7.0 [facility] Comment on above: Performed By: #### C BC ####[facility] Vontgzgxhg8[address] [place], [place] [address]Dr. Donna Malone Erythrocyte distribution width (RBC) [Ratio] 14.8 % Normal 11.0-15.0 [facility] Comment on above: Performed By: #### C BC ####[facility] Zrlwmeyrzi7[address] [place], [place] [address]Dr. Donna Malone Hematocrit (Bld) [Volume fraction] 41.9 % Critically low 42.0-54.0 [facility] Comment on above: Performed By: #### C BC ####[facility] Souxrvnfbl10[address] [place], [place] [address]Dr. Donna Malone Hemoglobin (Bld) [Mass/Vol] 13.6 g/dL Critically low 14.0-18.0 [facility] Comment on above: Performed By: #### C BC ####[facility] Ebgufvhodd624[address] [place], [place] [address]Dr. Donna Malone IG # 0.01 10e3/ul Normal 0.00-0.03 [facility] Comment on above: Performed By: #### C BC ####[facility] Hpbtufkeke2924[address] [place], [place] [address]Dr. Donna Malone IG % 0.1 % Normal 0.0-0.5 [facility] Comment on above: Performed By: #### C BC ####[facility] Fgkbvixwmh2713 [place] [id number]. Donna Malone LYMPH # 1.7 103/ul Normal 1.2-3.8 [facility] Comment on above: Performed By: #### C BC ####[facility] Uensxuxfqp8678 [place] [address]Dr. Donna Faisal Lymphocytes/100 WBC (Bld) 21.2 % Normal 20.5-60.0 [facility] Comment on above: Performed By: #### C BC ####[facility] Zcbdwmsigf0576 [place] [address]Dr. Donna Malone MANUAL DIFF REQ NO Normal [facility] Comment on above: Performed By: #### C BC ####[facility] Hrmjybzayp164[address] [place], [place] [address]Dr. Donna Faisal MCH (RBC) [Entitic mass] 29.2 pg Normal 25.9-34.0 [facility] Comment on above: Performed By: #### C BC ####[facility] Nbxoogpvky4932[address] [place], [place] [address]Dr. Donna Malone MCHC (RBC) [Mass/Vol] 32.5 g/dL Normal 29.9-35.2 [facility] Comment on above: Performed By: #### C BC ####[facility] Vmnxnuszoe9007 [place] [address]Dr. Donna Faisal MCV (RBC) [Entitic vol] 90.1 fL Normal 80.0-94.0 [facility] Comment on above: Performed By: #### C BC ####[facility] Lqofgjfojw[address] [place], [place] [address]Dr. Donna Malone MONO # 0.4 103/ul Normal 0.3-0.8 [facility] Comment on above: Performed By: #### C BC ####[facility] Syqnxqfneg67[address] [place], [place] [address]Dr. Donna Faisal Monocytes/100 WBC (Bld) 5.5 % Normal 1.7-12.0 [facility] Comment on above: Performed By: #### C BC ####[facility] Udrddjkain1838 [place] [address]Dr. Donna Malone NEUT # 5.7 103/ul Normal 1.4-6.5 [facility] Comment on above: Performed By: #### C BC ####[facility] Xfbaqdfkoc8142 [place] [address]Dr. Donna Malone Neutrophils/100 WBC (Bld) 72.1 % Normal 43.0-75.0 [facility] Comment on above: Performed By: #### C BC ####[facility] Nkdntoaxxu5949 [place] [address]Dr. Donna Malone Platelet mean volume (Bld) [Entitic vol] 11.5 fL Normal 9.5-13.5 [facility] Comment on above: Performed By: #### C BC ####[facility] Dfqbylzxyg9072 [place] [address]Dr. Donna Malone PLT 193 103/ul Normal 150-450 [facility] Comment on above: Performed By: #### C BC ####[facility] Wmudacrzxb0228 [place] [address]Dr. Donna Malone RBC 4.65 106/ul Critically low 4.70-6.10 [facility] Comment on above: Performed By: #### C BC ####[facility] Zrdupqcfbg0016 [place] [address]Dr. Donna Malone WBC 7.9 103/ul Normal 4.0-11.0 [facility] Comment on above: Performed By: #### C BC ####[facility] Anzydlvbbw9[address] [place], [place] [address]Dr. Donna Malone CT HEAD WO CONon 11-14-2022 CT HEAD WO CON Normal [facility] CULTURE BLOODon 11-14-2022 Microscopic examination of blood, culture Culture Observations: NO GROWTH AT 5 DAYS. Normal [facility] Comment on above: Performed By: #### B LDCX2 ####[facility] Jbztbjvhmb93[address] [place], [place] [address]Dr. Donna Malone Microscopic examination of blood, culture Culture Observations: NO GROWTH AT 5 DAYS. Normal [facility] Comment on above: Performed By: #### B LDCX1 ####[facility] Iclchylfwq0365 [place] [phone]. Donna Faisal Covid-19 PCR ([facility])on SARS-CoV-2 (COVID-19) RNA JOSÉ MIGUEL+probe Ql (Unsp spec) Not detected Normal NOT DETECTED [facility] Comment on above: Result Comment: When diagnostic testing is negative, the possibility of a false negative should be considered inthe context of a patient's recent exposures and the presence of clinical signs and symptomsconsistent with SARS-CoV-2.This test is not yet approved or cleared by the [place] FDA. When there are no FDA-approved or cleared tests available, and other criteria are met, FDA can make tests available under an emergency access mechanism called an Emergency Use Authorization (EUA). The EUA for this test is supported by the [place] of Health and Human Service's declaration that circumstances exist to justify the emergency use of in vitro diagnostics for the detection and/or diagnosis of the virus that causes COVID-19. This EUA will remain in effect for the duration of the COVID-19 declaration justifying emergency of IVDs, unless it is terminated or revoked by the FDA (after which the test may no longer be used). Performed By: #### C VDTBH ####[facility] Wervhepfbx0291 [place] [id number]. Donna Malone DRUG SCREEN RAPID (URINE)on 11-14-2022 AMP Negative Normal NEGATIVE [facility] Comment on above: Performed By: #### D SHARONA ERUR ####[facility] Ocmayxytjv2979 [place] [phone]. Donna Malone BAR Negative Normal NEGATIVE [facility] Comment on above: Performed By: #### D SHARONA ERUR ####[facility] Jizjulmxzz0995 [place] [address]Dr. Donna Malone BUP Negative Normal NEGATIVE [facility] Comment on above: Performed By: #### D SHARONA ERUR ####[facility] Rjedcnfufk2636 [place] [id number]. Donna Malone BZO Negative Normal NEGATIVE [facility] Comment on above: Performed By: #### Calvin TABOR, ERUR ####[facility] Ojmipvmqwx0215[address] [place], [place] [address]Dr. Donna Malone EVONNE Negative Normal NEGATIVE [facility] Comment on above: Performed By: #### Calvin TABOR, ERUR ####[facility] Etggddkagq37[address] [place], [place] [address]Dr. Donna Malone CUT-OFFS SEE BELOW Normal [facility] Comment on above: Result Comment: AMP (Amphetamine): 500ng/mL, BAR (Barbituates): 200 ng/mL, BZO (Benzodiazepines): 150 ng/mL, BUP (Buprenorphine): 10 ng/mL, EVONNE (Cocaine): 150 ng/mL, mAMP (Methamphetamine): 500 ng/mL, MTD (Methadone): 200 ng/mL, OPI (Opiates): 100 ng/mL, OXY (Oxycodone): 100 ng/mL, PCP (Phencyclidine): 25 ng/mL, PPX (Propoxyphene): 300 ng/mL, THC (Cannabinoids): 50 ng/mL, TCA (Trycyclic Antidepressants): 300 ng/mL Performed By: #### WESLY LAUR ####[facility] Cghmozjutg50[address] [place], [place] [address]Dr. Donna Malone DRUG CUT HEADER DRUG CLASS TEST SYST EM CUT-OFF CONCENTRATIONS ARE FOLLOWS: Normal [facility] Comment on above: Performed By: #### Calvin TABOR ERUR ####[facility] Mkkuskcynk25[address] [place], [place] [address]Dr. Donna Malone mAMP Negative Normal NEGATIVE [facility] Comment on above: Performed By: #### Calvin TABOR ERUR ####[facility] Afsitvsdbp289[address] [place], [place] [address]Dr. Donna Malone MTD Negative Normal NEGATIVE [facility] Comment on above: Performed By: #### Calvin TABOR, ERUR ####[facility] Ntxmcqjaga58[address] [place], [place] [address]Dr. Donna Malone OPI Negative Normal NEGATIVE [facility] Comment on above: Performed By: #### D SHARONA, ERUR ####[facility] Avdlsgwsmq7060 [place] [address]Dr. Donna Malone OXY Negative Normal NEGATIVE [facility] Comment on above: Performed By: #### Calvin TABOR, ERUR ####[facility] Mgeztwgted9575 [place] [address]Dr. Donna Malone PCP Negative Normal NEGATIVE [facility] Comment on above: Performed By: #### Calvin TABOR, ERUR ####[facility] Uqknbaktte9676 [place] [address]Dr. Donna Malone PPX Negative Normal NEGATIVE [facility] Comment on above: Performed By: #### Calvin TABOR, ERUR ####[facility] Nuntyqbgov0992 [place] [address]Dr. Donna Malone TCA Positive Abnormal NEGATIVE [facility] Comment on above: Performed By: #### Calvin TABOR, ERUR ####[facility] Nqbyiqpnpg22[address] [place], [place] [address]Dr. Donna Malone THC Negative Normal NEGATIVE [facility] Comment on above: Performed By: #### Calvin TABOR, ERUR ####[facility] Vhzpdnyhft912[address] [place], [place] [address]Dr. Donna Malone ER URINE PROFILEon 3 Bilirubin Ql (U) MODERATE Abnormal NEGATIVE [facility] Comment on above: Performed By: #### Calvin TABOR, ERUR ####[facility] Vodemqczvh4109 [place] [address]Dr. Donna Malone Clarity (U) CLEAR Normal CLEAR [facility] Comment on above: Performed By: #### Calvin TABOR, ERUR ####[facility] Swnafxxlgy6260 [place] [address]Dr. Donna Malone Color (U) DK. YELLOW Normal YELLOW [facility] Comment on above: Performed By: #### Calvin TABOR, ERUR ####[facility] Pwvdekldot0342 [place] [address]Dr. Donna ARCE A micrscopic examina tion will be performed if indicated. Normal [facility] Comment on above: Performed By: #### Calvin TABOR, ERUR ####[facility] Fpysiiytxd1200[address] [place], [place] [address]Dr. Donna Malone Glucose Ql (U) Negative Normal NEGATIVE [facility] Comment on above: Performed By: #### Calvin TABOR, ERUR ####[facility] Nvxnhcmqlb801[address] [place], [place] [address]Dr. Donna Faisal Hemoglobin Ql (U) Negative Normal NEGATIVE [facility] Comment on above: Performed By: #### Calvin TABOR, ERUR ####[facility] Vplgyqijkk6718[address] [place], [place] [address]Dr. Donna Malone Ketones Ql (U) 40 mg/dl Abnormal NEGATIVE [facility] Comment on above: Performed By: #### Calvin TABOR, ERUR ####[facility] Yojtkdyzkp75[address] [place], [place] [address]Dr. Rubyyvan Malone LEUKOCYTES Negative Normal NEGATIVE [facility] Comment on above: Performed By: #### Calvin TABOR, ERUR ####[facility] Wpibvfpzka145[address] [place], [place] [address]Dr. Donna Malone Nitrite Ql (U) Negative Normal NEGATIVE [facility] Comment on above: Performed By: #### Calvin TABOR, ERUR ####[facility] Uzossglpno44[address] [place], [place] [address]Dr. Donna Malone pH (U) 6.0 [pH] Normal 5-9 [facility] Comment on above: Performed By: #### Calvin TABOR, ERUR ####[facility] Endulnsglg356[address] [place], [place] [address]Dr. Donna Malone SPEC GRAVITY 1.030 Abnormal 1.005-<=1. 025 [facility] Comment on above: Performed By: #### Calvin TABOR, ERUR ####[facility] Oehuipnahj[address] [place], [place] [address]Dr. Donna Malone UA PROTEIN TRACE Normal NEGATIVE/ TRACE [facility] Comment on above: Performed By: #### Calvin TABOR, ERUR ####[facility] Pkfqshpfns2957 [place] [address]Dr. Donna Malone UR MICRO IND NOT INDICATED Normal [facility] Comment on above: Performed By: #### D SHARONA, ERUR ####[facility] Hoioshwvou1161 [place] [address]Dr. Donna Malone Urobilinogen Qn (U) 1.0 {Jermain'U}/dL Normal 0.2 - 1. 0 [facility] Comment on above: Performed By: #### D SHARONA, ERUR ####[facility] Jbtpnxbbuh2449 [place] [address]Dr. Donna Malone LACTATE/LACTIC ACIDon 2022 Lactate [Moles/Vol] 1.6 mmol/L Normal 0.4-1.9 [facility] Comment on above: Performed By: #### L ACT ####[facility] Oxopoyivxo4863 [place] [address]Dr. Donna Malone PROF 14(COMP METB)on 023 Albumin [Mass/Vol] 3.4 g/dL Normal 3.4-5.0 [facility] Comment on above: Performed By: #### B FLY RAIL OPERATOR, CMP, HSTROPN ####[facility] Hxbqehiiis0166 [place] [address]Dr. Donna Malone Albumin/Globulin [Mass ratio] 1.0 {ratio} Normal [facility] Comment on above: Performed By: #### B FLY RAIL OPERATOR, CMP, HSTROPN ####[facility] Lyuzqehxcv9844 [place] [address]Dr. Donna Malone ALP [Catalytic activity/Vol] 48 U/L Normal 46-116 [facility] Comment on above: Performed By: #### B FLY RAIL OPERATOR, CMP, HSTROPN ####[facility] Bgbexkstsp0960 [place] [address]Dr. Donna Malone ALT [Catalytic activity/Vol] 13 U/L Critically low 16-63 [facility] Comment on above: Performed By: #### B FLY RAIL OPERATOR, CMP, HSTROPN ####[facility] Grlrgvhwuv6109 [place] [address]Dr. Donna Malone Anion gap [Moles/Vol] 13.2 mmol/L Normal Th e [facility] Comment on above: Performed By: #### B FLY RAIL OPERATOR, CMP, HSTROPN ####[facility] Iqgekgpztx3914 [place] [address]Dr. Donna Malone AST [Catalytic activity/Vol] 13 U/L Critically low 15-37 [facility] Comment on above: Performed By: #### B FLY RAIL OPERATOR, CMP, HSTROPN ####[facility] Bqjfinaepc9839 [place] [address]Dr. Donna Malone Bilirubin [Mass/Vol] 0.4 mg/dL Normal 0.2-1.0 [facility] Comment on above: Performed By: #### B FLY RAIL OPERATOR, CMP, HSTROPN ####[facility] Cvdzlnunes037[address] [place], [place] [address]Dr. Donna Malone Calcium [Mass/Vol] 9.2 mg/dL Normal 8.5-10.1 [facility] Comment on above: Performed By: #### B FLY RAIL OPERATOR, CMP, HSTROPN ####[facility] Ywljczbrsr[address] [place], [place] [address]Dr. Donna Malone Chloride [Moles/Vol] 108 mmol/L Critically high 98-107 [facility] Comment on above: Performed By: #### B FLY RAIL OPERATOR, CMP, HSTROPN ####[facility] Hftwnkvedv3591 [place] [address]Dr. Donna Malone CO2 [Moles/Vol] 27.0 mmol/L Normal 21.0-32.0 [facility] Comment on above: Performed By: #### B FLY RAIL OPERATOR, CMP, HSTROPN ####[facility] Dvdafbuaex58[address] [place], [place] [address]Dr. Donna Malone Creatinine [Mass/Vol] 1.14 mg/dL Normal 0.70-1.30 [facility] Comment on above: Performed By: #### B FLY RAIL OPERATOR, CMP, HSTROPN ####[facility] Drppdhyaea9[address] [place], [place] [address]Dr. Donna Malone EGFR-AF MOLDOVAN >60 Normal >=60 [facility] Comment on above: Performed By: #### B FLY RAIL OPERATOR, CMP, HSTROPN ####[facility] Tqzbexazup7693 [place] [address]Dr. Donna Malone EGFR-NON AF MOLDOVAN >60 Normal >=60 [facility] Comment on above: Performed By: #### B FLY RAIL OPERATOR, CMP, HSTROPN ####[facility] Wgiomtvdlj2181 [place] [address]Dr. Donna Malone Globulin (S) [Mass/Vol] 3.5 g/dL Normal [facility] Comment on above: Performed By: #### B FLY RAIL OPERATOR, CMP, HSTROPN ####[facility] Vgckglzrzo9137 [place] [address]Dr. Donna Malone Glucose [Mass/Vol] 126 mg/dL Critically high 74-106 [facility] Comment on above: Performed By: #### B FLY RAIL OPERATOR, CMP, HSTROPN ####[facility] Bnqahmkqqd5195 [place] [address]Dr. Donna Malone Potassium [Moles/Vol] 4.2 mmol/L Normal 3.5-5.1 [facility] Comment on above: Performed By: #### B FLY RAIL OPERATOR, CMP, HSTROPN ####[facility] Gpwknpldpp4558 [place] [address]Dr. Donna Malone Protein [Mass/Vol] 6.9 g/dL Normal 6.4-8.2 [facility] Comment on above: Performed By: #### B FLY RAIL OPERATOR, CMP, HSTROPN ####[facility] Lniruaryjb7970 [place] [address]Dr. Donna Malone Sodium [Moles/Vol] 144 mmol/L Normal 136-145 [facility] Comment on above: Performed By: #### B FLY RAIL OPERATOR, CMP, HSTROPN ####[facility] Siepxkhnmd8292 [place] [address]Dr. Donna Malone Urea nitrogen [Mass/Vol] 17.0 mg/dL Normal 7.0-18.0 [facility] Comment on above: Performed By: #### B FLY RAIL OPERATOR, CMP, HSTROPN ####[facility] Hgdxecxcbq6035 [place], [place] [address]No. Donna Malone Urea nitrogen/Creatinine [Mass ratio] 14.9 mg/mg Normal [facility] Comment on above: Performed By: #### B FLY RAIL OPERATOR, CMP, HSTROPN ####[facility] Ftfypeebpu2979 [place], [place] [address]Cm. Donna Malone TROPONIN, HIGH SENSITIVITYon 11-14-2022 HSTROP 11.2 pg/mL Normal 4.0-76.1 [facility] Comment on above: Result Comment: CUT- OFF POINTS HAVE BEEN ESTABLISHED BASED ON THE FOURTH UNIVERSAL DEFINITIONS OF MYOCARDIALINFARCTION. THE UPPER REFERENCE LIMIT (URL) OF TROPONIN, DEFINED THE 99TH PERCENTILE OFcTnI DISTRIBUTION IN A REFERENCE POPULATION, HAS BEEN CONFIRMED THE DECISION THRESHOLDFOR PR DIAGNOSIS. Performed By: #### B FLY RAIL OPERATOR, CMP, HSTROPN ####[facility] Fcdgtuvrbj5270 [place], [place] [address]Uv. Donna Malone XR CHEST 1 Von 11-14-2022 XR CHEST 1 V Normal [facility] XR lumbar spine AP/LAT/FLX/E XTon 11-01-2022 XR lumbar spine AP/LAT/FLX/EXT [facility] [place] [address] XRay Report Signed Patient: Taylor Mcclellan SR MR#: [id number] : 1955 Acct:[id number] Age/Sex: 67 / M ADM Date: 11/01/22 Loc: XD Room: Type: [facility] Attending Dr: Benson Lane MD Copies to: Benson Lane MD Ordering Provider: Benson Lane MD Date of Service: 11/01/22 XR/XR lumbar spine AP/LAT/FLX/EXT: Failed back syndrome;Arthritis of lumbosacral spine;Sacroili XR lumbar spine AP/LAT/FLX/EXT 11/01/2022 2:50 PM SIGNS AND SYMPTOMS: Low back pain, pain radiating down right leg PROTOCOLS: Frontal, lateral, and flexion-extension views of the lumbar spine COMPARISON: 04/03/2017 FINDINGS: There is a dextro convex curvature of the lumbar spine. There is posterior fusion at L4-5 on the right without hardware complications or malalignment. There is moderate disc height loss at L5-S1. There is mild to moderate disc height loss at L3-L4. There is no pathologic movement on flexion or extension. Atherosclerotic changes are noted in the abdominal aorta. The sacroiliac joints are preserved. XR/XR lumbar spine AP/LAT/FLX/EXT IMPRESSION: Right sided posterior fusion at L4-5. No malalignment or hardware palpation. Worsening intervertebral disc degenerative changes are noted at L3-L4 and L5-S1. No fracture, subluxation, or pathologic movement. Impression dictated by: Mj Rodriguez M.D.11/01/2022 3:07 PM Dictation Location: [place] [address] Transcribed By: [facility] 11/01/22 1507 Dictated By: Mj Rodriguez II, MD 11/01/22 1505 Signed By: 11/01/22 1507 Normal [facility] ER URINE PROFILEon 3 Bilirubin Ql (U) Negative Normal NEGATIVE [facility] Comment on above: Performed By: #### E RUR ####[facility] Jvzhacemci10[address] [place], [place] [address]Dr. Donna Malone Clarity (U) CLEAR Normal CLEAR [facility] Comment on above: Performed By: #### E RUR ####[facility] Tgpalqcsqd0824 [place] [address]Dr. Donna Malone Color (U) YELLOW Normal YELLOW [facility] Comment on above: Performed By: #### E RUR ####[facility] Tyndvlapan4080 [place] [address]Dr. Donna Malone ERUAHD A micrscopic examina tion will be performed if indicated. Normal [facility] Comment on above: Performed By: #### E RUR ####[facility] Gtlqalidfw1509 [place] [address]Dr. Donna Malone Glucose Ql (U) 250 mg/dl Abnormal NEGATIVE [facility] Comment on above: Performed By: #### E RUR ####[facility] Vehiahpujw089[address] [place], [place] [address]Dr. Donna Malone Hemoglobin Ql (U) TRACE-INTACT Abnormal NEGATIVE [facility] Comment on above: Performed By: #### E RUR ####[facility] Jzrwqxxwzp2535[address] [place], [place] [address]Dr. Rubyyvan Malone Ketones Ql (U) Negative Normal NEGATIVE [facility] Comment on above: Performed By: #### E RUR ####[facility] Rgepxwklip0435[address] [place], [place] [address]Dr. Rubyyvan Faisal LEUKOCYTES Negative Normal NEGATIVE [facility] Comment on above: Performed By: #### E RUR ####[facility] Rwkucztbeh208[address] [place], [place] [address]Dr. Donna Malone Nitrite Ql (U) Negative Normal NEGATIVE [facility] Comment on above: Performed By: #### E RUR ####[facility] Sjupbtfpjx49[address] [place], [place] [address]Dr. Donna Malone pH (U) 5.5 [pH] Normal 5-9 [facility] Comment on above: Performed By: #### E RUR ####[facility] Xgfzuushtt7117[address] [place], [place] [address]Dr. Donna Malone SPEC GRAVITY 1.025 Normal 1.005-<=1. 025 [facility] Comment on above: Performed By: #### E RUR ####[facility] Kbjpoaaqxz409[address] [place], [place] [address]Dr. Donna Malone UA PROTEIN Negative Normal NEGATIVE/ TRACE [facility] Comment on above: Performed By: #### E RUR ####[facility] Opjoshhcmv480[address] [place], [place] [address]Dr. Donna Malone UR MICRO IND NOT INDICATED Normal [facility] Comment on above: Performed By: #### E RUR ####[facility] Yzhbmunnpm1747[address] [place], [place] [address]Dr. Donna Malone Urobilinogen Qn (U) 0.2 {Jermain'U}/dL Normal 0.2 - 1. 0 [facility] Comment on above: Performed By: #### E RUR ####[facility] Dftpryjdxl5126 [place] [address]Dr. Donna Malone CBC AUTO DIFFon 10-26-2022 BASO # 0.0 103/ul Normal 0.0-0.1 [facility] Comment on above: Performed By: #### C BC ####[facility] Hykovyurrg6184 [place] [address]Dr. Rubyyvan Malone Basophils/100 WBC (Bld) 0.4 % Normal 0.2-2.0 [facility] Comment on above: Performed By: #### C BC ####[facility] Pniwvagcld555[address] [place], [place] [address]Dr. Rubyyvan Malone EO # 0.0 103/ul Normal 0.0-0.7 [facility] Comment on above: Performed By: #### C BC ####[facility] Mdgksllhhq456[address] [place], [place] [address]Dr. Rubyyvan Malone Eosinophils/100 WBC (Bld) 0.0 % Critically low 0.9-7.0 [facility] Comment on above: Performed By: #### C BC ####[facility] Vgwgavmuge35[address] [place], [place] [address]Dr. Donna Malone Erythrocyte distribution width (RBC) [Ratio] 14.5 % Normal 11.0-15.0 [facility] Comment on above: Performed By: #### C BC ####[facility] Ubluggadkl774[address] [place], [place] [address]Dr. Rubyyvan Malone Hematocrit (Bld) [Volume fraction] 41.2 % Critically low 42.0-54.0 [facility] Comment on above: Performed By: #### C BC ####[facility] Joedfvghfv480[address] [place], [place] [address]Dr. Rubyyvan Malone Hemoglobin (Bld) [Mass/Vol] 13.7 g/dL Critically low 14.0-18.0 [facility] Comment on above: Performed By: #### C BC ####[facility] Cghowppyhl5610[address] [place], [place] [address]Dr. Donna Malone IG # 0.02 10e3/ul Normal 0.00-0.03 [facility] Comment on above: Performed By: #### C BC ####[facility] Qhfilyotaq9608 [place] [address]DrElizabeth Donna Malone IG % 0.2 % Normal 0.0-0.5 [facility] Comment on above: Performed By: #### C BC ####[facility] Dghzyygfnb750[address] [place], [place] [address]DrElizabeth Donna Malone LYMPH # 1.2 103/ul Normal 1.2-3.8 [facility] Comment on above: Performed By: #### C BC ####[facility] Gwdrraqwfh208[address] [place], [place] [address]DrElizabeth Donna Malone Lymphocytes/100 WBC (Bld) 14.4 % Critically low 20.5-60.0 [facility] Comment on above: Performed By: #### C BC ####[facility] Cdgammarku00[address] [place], [place] [address]DrElizabeth Donna Malone MANUAL DIFF REQ NO Normal [facility] Comment on above: Performed By: #### C BC ####[facility] Mfnfreehhj67[address] [place], [place] [address]DrElizabeth Donna Malone MCH (RBC) [Entitic mass] 29.4 pg Normal 25.9-34.0 [facility] Comment on above: Performed By: #### C BC ####[facility] Bvotqnqmxg026[address] [place], [place] [address]DrElizabeth Donna Malone MCHC (RBC) [Mass/Vol] 33.3 g/dL Normal 29.9-35.2 [facility] Comment on above: Performed By: #### C BC ####[facility] Kggtcltgsr024[address] [place], [place] [address]DrElizabeth Donna Malone MCV (RBC) [Entitic vol] 88.4 fL Normal 80.0-94.0 [facility] Comment on above: Performed By: #### C BC ####[facility] Pjlnxbobmn48[address] [place], [place] [address]DrElizabeth Donna Faisal MONO # 0.2 103/ul Critically low 0.3-0.8 [facility] Comment on above: Performed By: #### C BC ####[facility] Dhapdwfctm59[address] [place] [address]Dr. Donna Malone Monocytes/100 WBC (Bld) 2.5 % Normal 1.7-12.0 [facility] Comment on above: Performed By: #### C BC ####[facility] Xounmrzljf8728 [place] [id number]. Donna Malone NEUT # 6.9 103/ul Critically high 1.4-6.5 [facility] Comment on above: Performed By: #### C BC ####[facility] Zaypjptmgn5[address] [place] [address]Dr. Donna Malone Neutrophils/100 WBC (Bld) 82.5 % Critically high 43.0-75.0 [facility] Comment on above: Performed By: #### C BC ####[facility] Ahxagibugf8898 [place] [address]Dr. Donna Malone Platelet mean volume (Bld) [Entitic vol] 11.3 fL Normal 9.5-13.5 [facility] Comment on above: Performed By: #### C BC ####[facility] Mrlaaeygyd2174[address] [place], [place] [address]Dr. Donna Malone PLT 241 103/ul Normal 150-450 [facility] Comment on above: Performed By: #### C BC ####[facility] Hcplhsxued8878 [place] [address]Dr. Donna Malone RBC 4.66 106/ul Critically low 4.70-6.10 [facility] Comment on above: Performed By: #### C BC ####[facility] Agauefqgff3643 [place] [id number]. Donna Malone WBC 8.4 103/ul Normal 4.0-11.0 [facility] Comment on above: Performed By: #### C BC ####[facility] Ablamaijqr8708 [place] [address]Dr. Donna Malone CRPon 10-26-2022 CRP [Mass/Vol] mg/L Normal <=1.0 [facility] Comment on above: Performed By: #### C RP, BMP ####[facility] Jvffugvwqm36[address] [place] [address]Dr. Donna Malone CT LSPINE WO CONon 3 CT LSPINE WO CON Normal [facility] PROF CHEM 8 (BAS METB)on Anion gap [Moles/Vol] 11.9 mmol/L Normal Th [facility] Comment on above: Performed By: #### C RP, BMP ####[facility] Avnulrhiln1096 [place] [address]Dr. Donna Malone Calcium [Mass/Vol] 9.1 mg/dL Normal 8.5-10.1 [facility] Comment on above: Performed By: #### C RP, BMP ####[facility] Olubndwuif8777 [place] [address]Dr. Donna Malone Chloride [Moles/Vol] 104 mmol/L Normal 98-107 [facility] Comment on above: Performed By: #### C RP, BMP ####[facility] Xtvxqdmtss1083 [place] [address]Dr. Donna Malone CO2 [Moles/Vol] 26.3 mmol/L Normal 21.0-32.0 [facility] Comment on above: Performed By: #### C RP, BMP ####[facility] Sfajhrbabw1202 [place] [address]Dr. Rubyyvan Malone Creatinine [Mass/Vol] 0.99 mg/dL Normal 0.70-1.30 [facility] Comment on above: Performed By: #### C RP, BMP ####[facility] Cmwoimzbht7829 [place] [id number]. Rubyyvan Faisal EGFR-AF MOLDOVAN >60 Normal >=60 [facility] Comment on above: Performed By: #### C RP, BMP ####[facility] Sdohihtpim5554 [place] [address]Dr. Donna Malone EGFR-NON AF MOLDOVAN >60 Normal >=60 [facility] Comment on above: Performed By: #### C RP, BMP ####[facility] Woebuqmjnl6116 [place] [id number]. Donna Malone Glucose [Mass/Vol] 152 mg/dL Critically high 74-[address] [facility] Comment on above: Performed By: #### C RP, BMP ####[facility] Iupesyraxt5299[address] [place], [place] [address]Dr. Donna Malone Potassium [Moles/Vol] 4.2 mmol/L Normal 3.5-5.1 [facility] Comment on above: Performed By: #### C RP, BMP ####[facility] Exikqcyriq8849[address] [place], [place] [address]Dr. Donna Malone Sodium [Moles/Vol] 138 mmol/L Normal 136-145 [facility] Comment on above: Performed By: #### C RP, BMP ####[facility] Tntwtzgznl80[address] [place], [place] [address]Dr. Donna Faisal Urea nitrogen [Mass/Vol] 12.0 mg/dL Normal 7.0-18.0 [facility] Comment on above: Performed By: #### C RP, BMP ####[facility] Fkxguxadew7285[address] [place], [place] [address]Dr. Donna Malone Urea nitrogen/Creatinine [Mass ratio] 12.1 mg/mg Normal [facility] Comment on above: Performed By: #### C RP, BMP ####[facility] Ibtrdxtqzb283066 [address] [place], [place] [address]Dr. Donna Faisal SED RATE WESTERGRENon 2022 SED RATE 57 mm/hr Critically high <=20 [facility] Comment on above: Performed By: #### S EDR ####[facility] Bigvtnjnnp4910[address] [place], [place] [address]Dr. Donna Malone CBC AUTO DIFFon 10-25-2022 BASO # 0.0 103/ul Normal 0.0-0.1 [facility] Comment on above: Performed By: #### C BC ####[facility] Glvfizdjne821066 [address] [place], [place] [address]Dr. Donna Malone Basophils/100 WBC (Bld) 0.4 % Normal 0.2-2.0 [facility] Comment on above: Performed By: #### C BC ####[facility] Jwphjsrvxq7044 [place] [address]Dr. Donna Malone EO # 0.0 103/ul Normal 0.0-0.7 [facility] Comment on above: Performed By: #### C BC ####[facility] Pxeyjjmvqt165066 [address] [place], [place] [address]Dr. Donna Malone Eosinophils/100 WBC (Bld) 0.0 % Critically low 0.9-7.0 [facility] Comment on above: Performed By: #### C BC ####[facility] Vfdvsmqxsz8564[address] [place], [place] [address]Dr. Donna Malone Erythrocyte distribution width (RBC) [Ratio] 14.5 % Normal 11.0-15.0 [facility] Comment on above: Performed By: #### C BC ####[facility] Yudwzellwo547866 [address] [place], [place] [address]Dr. Donna Malone Hematocrit (Bld) [Volume fraction] 43.8 % Normal 42.0-54.0 [facility] Comment on above: Performed By: #### C BC ####[facility] Llncmanswb994666 [address] [place], [place] [address]Dr. Donna Malone Hemoglobin (Bld) [Mass/Vol] 14.2 g/dL Normal 14.0-18.0 [facility] Comment on above: Performed By: #### C BC ####[facility] Xiuejnrejk633566 [address] [place], [place] [address]Dr. Donna Malone IG # 0.01 10e3/ul Normal 0.00-0.03 [facility] Comment on above: Performed By: #### C BC ####[facility] Yhyrhpjoly8901[address] [place], [place] [address]Dr. Rubyyvan Malone IG % 0.1 % Normal 0.0-0.5 [facility] Comment on above: Performed By: #### C BC ####[facility] Lvcrzbcngu4295[address] [place], [place] [address]DrElizabeth Malone LYMPH # 1.4 103/ul Normal 1.2-3.8 [facility] Comment on above: Performed By: #### C BC ####[facility] Wwddatlady6629 [place] [id number]. Donna Malone Lymphocytes/100 WBC (Bld) 17.1 % Critically low 20.5-60.0 [facility] Comment on above: Performed By: #### C BC ####[facility] Njhrererji5905 [place] [address]Dr. Donna Malone MANUAL DIFF REQ NO Normal [facility] Comment on above: Performed By: #### C BC ####[facility] Fmilihqota2141 [place] [id number]. Donna Malone MCH (RBC) [Entitic mass] 29.1 pg Normal 25.9-34.0 [facility] Comment on above: Performed By: #### C BC ####[facility] Zxszsfrpoq364[address] [place], [place] [address]Dr. Donna Malone MCHC (RBC) [Mass/Vol] 32.4 g/dL Normal 29.9-35.2 [facility] Comment on above: Performed By: #### C BC ####[facility] Fgkiyaswbr187[address] [place], [place] [address]Dr. Donna Malone MCV (RBC) [Entitic vol] 89.8 fL Normal 80.0-94.0 [facility] Comment on above: Performed By: #### C BC ####[facility] Wzzmlmfxcg368266 [address] [place], [place] [address]Dr. Donna Malone MONO # 0.3 103/ul Normal 0.3-0.8 [facility] Comment on above: Performed By: #### C BC ####[facility] Nunbuuqrut[address] [place], [place] [id number]. Donna Malone Monocytes/100 WBC (Bld) 4.1 % Normal 1.7-12.0 [facility] Comment on above: Performed By: #### C BC ####[facility] Ucyzdppjre087[address] [place], [place] [address]DrElizabeth Malone NEUT # 6.3 103/ul Normal 1.4-6.5 [facility] Comment on above: Performed By: #### C BC ####[facility] Gpgpldbzcf5531 [place] [address]Dr. Donna Malone Neutrophils/100 WBC (Bld) 78.3 % Critically high 43.0-75.0 [facility] Comment on above: Performed By: #### C BC ####[facility] Nhcgtyblpm7955 [place] [address]Dr. Donna Malone Platelet mean volume (Bld) [Entitic vol] 11.3 fL Normal 9.5-13.5 [facility] Comment on above: Performed By: #### C BC ####[facility] Kwtfpiadgy272466 [address] [place], [place] [address]Dr. Donna Faisal PLT 271 103/ul Normal 150-450 [facility] Comment on above: Performed By: #### C BC ####[facility] Fgjjyndawx039266 [address] [place], [place] [address]Dr. Donna Faisal RBC 4.88 106/ul Normal 4.70-6.10 [facility] Comment on above: Performed By: #### C BC ####[facility] Nuelfyqabj618[address] [place], [place] [address]Dr. Donna Malone WBC 8.0 103/ul Normal 4.0-11.0 [facility] Comment on above: Performed By: #### C BC ####[facility] Pysmuxprud351466 [address] [place], [place] [address]Dr. Donna Faisal ER URINE PROFILEon 3 Bilirubin Ql (U) Negative Normal NEGATIVE [facility] Comment on above: Performed By: #### E RUR ####[facility] Vccrbvlxuz919166 [address] [place], [place] [address]Dr. Donna Malone Clarity (U) CLEAR Normal CLEAR [facility] Comment on above: Performed By: #### E RUR ####[facility] Brgnmbvspw1867 [place] [address]Dr. Donna Malone Color (U) YELLOW Normal YELLOW [facility] Comment on above: Performed By: #### E RUR ####[facility] Vvbqmxuvrg5539 [place] [address]Dr. Donna Malone ERUAHD A micrscopic examina tion will be performed if indicated. Normal [facility] Comment on above: Performed By: #### E RUR ####[facility] Auplcutbya738366 [address] [place], [place] [address]Dr. Donna Malone Glucose Ql (U) 100 mg/dl Abnormal NEGATIVE [facility] Comment on above: Performed By: #### E RUR ####[facility] Jcgkpdacbz890166 [address] [place], [place] [address]Dr. Donna Malone Hemoglobin Ql (U) Negative Normal NEGATIVE [facility] Comment on above: Performed By: #### E RUR ####[facility] Naldufrkhd486666 [address] [place], [place] [address]Dr. Donna Faisal Ketones Ql (U) TRACE Abnormal NEGATIVE [facility] Comment on above: Performed By: #### E RUR ####[facility] Ssjbjjbnnh908066 [address] [place], [place] [address]Dr. Donna Malone LEUKOCYTES Negative Normal NEGATIVE [facility] Comment on above: Performed By: #### E RUR ####[facility] Rfmkkicnwn703966 [address] [place], [place] [address]Dr. Donna Faisal Nitrite Ql (U) Negative Normal NEGATIVE [facility] Comment on above: Performed By: #### E RUR ####[facility] Jjideaafts078766 [address] [place], [place] [address]Dr. Rubyyvan Faisal pH (U) 6.0 [pH] Normal 5-9 [facility] Comment on above: Performed By: #### E RUR ####[facility] Fafvgldqcb905866 [address] [place], [place] [address]Dr. Donna Malone SPEC GRAVITY >=1.030 Abnormal 1.005-<=1. 025 [facility] Comment on above: Performed By: #### E RUR ####[facility] Ktpfynlodb574766 [address] [place], [place] [address]Dr. Donna Malone UA PROTEIN Negative Normal NEGATIVE/ TRACE [facility] Comment on above: Performed By: #### E RUR ####[facility] Eslvjpcqki0707 [place] [address]Dr. Donna Malone UR MICRO IND NOT INDICATED Normal [facility] Comment on above: Performed By: #### E RUR ####[facility] Rrjrnswigh1823[address] [place], [place] [address]Dr. Donna Malone Urobilinogen Qn (U) 0.2 {Jermain'U}/dL Normal 0.2 - 1. 0 [facility] Comment on above: Performed By: #### E RUR ####[facility] Oxkeudmpta385666 [address] [place], [place] [address]Dr. Donna Malone PROF CHEM 8 (BAS METB)on Anion gap [Moles/Vol] 16.4 mmol/L Normal [facility] Comment on above: Performed By: #### B MP ####[facility] Nedrsvwgov422066 [address] [place], [place] [address]Dr. Donna Malone Calcium [Mass/Vol] 9.4 mg/dL Normal 8.5-10.1 [facility] Comment on above: Performed By: #### B MP ####[facility] Ackpuapsgy826466 [address] [place], [place] [address]Dr. Donna Malone Chloride [Moles/Vol] 103 mmol/L Normal 98-107 [facility] Comment on above: Performed By: #### B MP ####[facility] Yonymmtyjj157166 [address] [place], [place] [address]Dr. Donna Malone CO2 [Moles/Vol] 23.7 mmol/L Normal 21.0-32.0 [facility] Comment on above: Performed By: #### B MP ####[facility] Qiehnkslfx168866 [address] [place], [place] [address]Dr. Donna Malone Creatinine [Mass/Vol] 1.12 mg/dL Normal 0.70-1.30 [facility] Comment on above: Performed By: #### B MP ####[facility] Azvtywuczw0820[address] [place], [place] [address]Dr. Donna Malone EGFR-AF MOLDOVAN >60 Normal >=60 [facility] Comment on above: Performed By: #### B MP ####[facility] Jeuvyyqwzm0866 [place] [address]Dr. Donna Malone EGFR-NON AF MOLDOVAN >60 Normal >=60 [facility] Comment on above: Performed By: #### B MP ####[facility] Eipfxivlko8455 [place] [address]Dr. Donna Malone Glucose [Mass/Vol] 170 mg/dL Critically high 74-[address] [facility] Comment on above: Performed By: #### B MP ####[facility] Yptkmtrsmj5121 [place] [address]Dr. Donna Malone Potassium [Moles/Vol] 4.1 mmol/L Normal 3.5-5.1 [facility] Comment on above: Performed By: #### B MP ####[facility] Kxkihfprvr8605[address] [place], [place] [address]Dr. Donna Malone Sodium [Moles/Vol] 139 mmol/L Normal 136-145 [facility] Comment on above: Performed By: #### B MP ####[facility] Qneavypkmi766866 [address] [place], [place] [address]Dr. Donna Malone Urea nitrogen [Mass/Vol] 9.0 mg/dL Normal 7.0-18.0 [facility] Comment on above: Performed By: #### B MP ####[facility] Zekmynivqk5916[address] [place], [place] [address]Dr. Donna Malone Urea nitrogen/Creatinine [Mass ratio] 8.0 mg/mg Normal [facility] Comment on above: Performed By: #### B MP ####[facility] Gjcvlndluz007[address] [place], [place] [address]Dr. Donna Malone ACETONE SERUMon 08-10-2022 ACETONE Negative Normal NEGATIVE [facility] Comment on above: Performed By: #### A CETON ####[facility] Oopjkzgydp4977[address] [place], [place] [address]Dr. Donna Malone CBC AUTO DIFFon 08-10-2022 BASO # 0.1 103/ul Normal 0.0-0.1 [facility] Comment on above: Performed By: #### C BC ####[facility] Boubvhzvyp8999[address] [place], [place] [address]Dr. Donna Malone Basophils/100 WBC (Bld) 0.7 % Normal 0.2-2.0 [facility] Comment on above: Performed By: #### C BC ####[facility] Wtexikchhk0454 [place] [address]Dr. Donna Malone EO # 0.2 103/ul Normal 0.0-0.7 [facility] Comment on above: Performed By: #### C BC ####[facility] Oddqkffygo0630 [place] [address]Dr. Donna Malone Eosinophils/100 WBC (Bld) 2.0 % Normal 0.9-7.0 [facility] Comment on above: Performed By: #### C BC ####[facility] Jlqmjslmyt3015 [place] [address]Dr. Donna Malone Erythrocyte distribution width (RBC) [Ratio] 14.3 % Normal 11.0-15.0 [facility] Comment on above: Performed By: #### C BC ####[facility] Jzlbfajmep3719 [place] [address]Dr. Donna Malone Hematocrit (Bld) [Volume fraction] 37.3 % Critically low 42.0-54.0 [facility] Comment on above: Performed By: #### C BC ####[facility] Cumpddfzjz9688 [place] [address]Dr. Donna Malone Hemoglobin (Bld) [Mass/Vol] 12.1 g/dL Critically low 14.0-18.0 [facility] Comment on above: Performed By: #### C BC ####[facility] Yiatqgnvbr2459 [place] [address]Dr. Donna Malone IG # 0.03 10e3/ul Normal 0.00-0.03 [facility] Comment on above: Performed By: #### C BC ####[facility] Mhbsxaqrxu6095 [place] [address]Dr. Donna Malone IG % 0.4 % Normal 0.0-0.5 [facility] Comment on above: Performed By: #### C BC ####[facility] Wcmqugasus6877 [place] [id number]. Donna Faisal LYMPH # 1.3 103/ul Normal 1.2-3.8 [facility] Comment on above: Performed By: #### C BC ####[facility] Ufhocdcdns1080 [place] [address]Dr. Donna Faisal Lymphocytes/100 WBC (Bld) 18.3 % Critically low 20.5-60.0 [facility] Comment on above: Performed By: #### C BC ####[facility] Clsutnhapj89[address] [place] [address]Dr. Rubyyvan Malone MANUAL DIFF REQ NO Normal [facility] Comment on above: Performed By: #### C BC ####[facility] Tnymhhgvin2984 [place] [address]Dr. Donna Faisal MCH (RBC) [Entitic mass] 30.1 pg Normal 25.9-34.0 [facility] Comment on above: Performed By: #### C BC ####[facility] Whmuqsupgc8257 [place] [address]Dr. Donna Faisal MCHC (RBC) [Mass/Vol] 32.4 g/dL Normal 29.9-35.2 [facility] Comment on above: Performed By: #### C BC ####[facility] Wxnehiyttd5632 [place] [address]Dr. Rubyyvan Malone MCV (RBC) [Entitic vol] 92.8 fL Normal 80.0-94.0 [facility] Comment on above: Performed By: #### C BC ####[facility] Uxjvwbwwzh7024 [place] [address]Dr. Donna Faisal MONO # 0.6 103/ul Normal 0.3-0.8 [facility] Comment on above: Performed By: #### C BC ####[facility] Vynymfavxk6894 [place] [address]Dr. Rubyyvan Malone Monocytes/100 WBC (Bld) 7.6 % Normal 1.7-12.0 [facility] Comment on above: Performed By: #### C BC ####[facility] Tumenuicbw27[address] [place], [place] [address]Zw. oDnna Malone NEUT # 5.2 103/ul Normal 1.4-6.5 [facility] Comment on above: Performed By: #### C BC ####[facility] Duwkpyarft9363 [place] [id number]. Donna Malone Neutrophils/100 WBC (Bld) 71.0 % Normal 43.0-75.0 [facility] Comment on above: Performed By: #### C BC ####[facility] Nnzbkdckrp8444 [place] [id number]. Donna Malone Platelet mean volume (Bld) [Entitic vol] 11.6 fL Normal 9.5-13.5 [facility] Comment on above: Performed By: #### C BC ####[facility] Lxoxxyttrw9750 [place] [id number]. Donna Malone PLT 237 103/ul Normal 150-450 [facility] Comment on above: Performed By: #### C BC ####[facility] Cfizipvubm8623 [place] [address]Dr. Donna Malone RBC 4.02 106/ul Critically low 4.70-6.10 [facility] Comment on above: Performed By: #### C BC ####[facility] Ekfjiocbgv6855 [place] [address]Dr. Donna Malone WBC 7.3 103/ul Normal 4.0-11.0 [facility] Comment on above: Performed By: #### C BC ####[facility] Ecddprwgmq0032 [place] [id number]. Donna Malone [facility] ([facility]on SARS-CoV-2 (COVID-19) RNA JOSÉ MIGUEL+probe Ql (Unsp spec) Not detected Normal NOT DETECTED [facility] Comment on above: Result Comment: When diagnostic testing is negative, the possibility of a false negative should be considered inthe context of a patient's recent exposures and the presence of clinical signs and symptomsconsistent with SARS-CoV-2.This test is not yet approved or cleared by the [place] FDA. When there are no FDA-approved or cleared tests available, and other criteria are met, FDA can make tests available under an emergency access mechanism called an Emergency Use Authorization (EUA). The EUA for this test is supported by the [place] of Health and Human Service's declaration that circumstances exist to justify the emergency use of in vitro diagnostics for the detection and/or diagnosis of the virus that causes COVID-19. This EUA will remain in effect for the duration of the COVID-19 declaration justifying emergency of IVDs, unless it is terminated or revoked by the FDA (after which the test may no longer be used). Performed By: #### C VDTBH ####[facility] Zmfjxjgavy01[address] [place], [place] [address]Dr. Donna Malone LACTATE/LACTIC ACIDon 2021 Lactate [Moles/Vol] 1.3 mmol/L Normal 0.4-1.9 [facility] Comment on above: Performed By: #### L ACT ####[facility] Qbauatiqic268366 [address] [place], [place] [address]Dr. Donna Malone PROF 14(COMP METB)on 022 Albumin [Mass/Vol] 2.9 g/dL Critically low 3.4-5.0 [facility] Comment on above: Performed By: #### Nic KIDD HSTROPN ####[facility] Ebfrhwqkwh079[address] [place], [place] [address]Dr. Donna Malone Albumin/Globulin [Mass ratio] 0.7 {ratio} Normal [facility] Comment on above: Performed By: #### C MARTI HSTROPN ####[facility] Bpxawiymvx2735[address] [place], [place] [address]Dr. Donna Malone ALP [Catalytic activity/Vol] 45 U/L Critically low 46-116 [facility] Comment on above: Performed By: #### C MARTI HSTROPN ####[facility] Unrcguomko1112[address] [place], [place] [address]Dr. Donna Malone ALT [Catalytic activity/Vol] 12 U/L Critically low 16-63 [facility] Comment on above: Performed By: #### C MARTI HSTROPN ####[facility] Nuwnwfmdwe4742 [place] [address]Dr. Donna Malone Anion gap [Moles/Vol] 10.9 mmol/L Normal Th [facility] Comment on above: Performed By: #### C MARTI, HSTROPN ####[facility] Hqevtofuqy1806 [place] [address]Dr. Donna Malone AST [Catalytic activity/Vol] 10 U/L Critically low 15-37 [facility] Comment on above: Performed By: #### C MARTI, HSTROPN ####[facility] Lrlmqrfdvc7899 [place] [address]Dr. Rubyyvan Malone Bilirubin [Mass/Vol] 0.3 mg/dL Normal 0.2-1.0 [facility] Comment on above: Performed By: #### C MARTI, HSTROPN ####[facility] Avoynjojzy3648 [place] [address]Dr. Rubyyvan Malone Calcium [Mass/Vol] 8.9 mg/dL Normal 8.5-10.1 [facility] Comment on above: Performed By: #### C MARTI, HSTROPN ####[facility] Bvogpeqwxn9757 [place] [address]Dr. Rubyyvan Malone Chloride [Moles/Vol] 106 mmol/L Normal 98-107 [facility] Comment on above: Performed By: #### C MARTI, HSTROPN ####[facility] Jjqltpaxgt6388 [place] [address]Dr. Donna Malone CO2 [Moles/Vol] 29.4 mmol/L Normal 21.0-32.0 [facility] Comment on above: Performed By: #### C MARTI, HSTROPN ####[facility] Rgedtofjmy5940 [place] [address]Dr. Donna Malone Creatinine [Mass/Vol] 1.15 mg/dL Normal 0.70-1.30 [facility] Comment on above: Performed By: #### C MARTI, HSTROPN ####[facility] Kjjhflndic2459 [place] [address]Dr. Rubyyvan Malone EGFR-AF MOLDOVAN >60 Normal >=60 [facility] Comment on above: Performed By: #### C MARTI, HSTROPN ####[facility] Gbcrkhjvil9819 [place] [address]Dr. Donna Malone EGFR-NON AF MOLDOVAN >60 Normal >=60 [facility] Comment on above: Performed By: #### C MARTI, HSTROPN ####[facility] Nqiiintsmt4005 [place] [address]Dr. Donna Malone Globulin (S) [Mass/Vol] 4.2 g/dL Normal [facility] Comment on above: Performed By: #### C MARTI, HSTROPN ####[facility] Sliaeqzfwi7177 [place] [address]Dr. Donna Malone Glucose [Mass/Vol] 116 mg/dL Critically high 74-[address] [facility] Comment on above: Performed By: #### C MARTI, HSTROPN ####[facility] Ownwyeefyt1636 [place] [address]Dr. Donna Malone Potassium [Moles/Vol] 4.3 mmol/L Normal 3.5-5.1 [facility] Comment on above: Performed By: #### C MARTI, HSTROPN ####[facility] Qiydctall[address] [place], [place] [address]Dr. Donna Malone Protein [Mass/Vol] 7.1 g/dL Normal 6.4-8.2 [facility] Comment on above: Performed By: #### C MARTI, HSTROPN ####[facility] [address] [place] [address]Dr. Donna Malone Sodium [Moles/Vol] 142 mmol/L Normal 136-145 [facility] Comment on above: Performed By: #### C MARTI, HSTROPN ####[facility] [address] [place], [place] [address]Dr. Donna Malone Urea nitrogen [Mass/Vol] 9.0 mg/dL Normal 7.0-18.0 [facility] Comment on above: Performed By: #### C MARTI, HSTROPN ####[facility] [address] [place], [place] [address]Dr. Donna Malone Urea nitrogen/Creatinine [Mass ratio] 7.8 mg/mg Normal [facility] Comment on above: Performed By: #### C MARTI, HSTROPN ####[facility] [address] [place], [place] [address]Zt. Donna Malone TROPONIN, HIGH SENSITIVITYon 08-10-2022 HSTROP 9.1 pg/mL Normal 4.0-76.1 [facility] Comment on above: Result Comment: CUT- OFF POINTS HAVE BEEN ESTABLISHED BASED ON THE FOURTH UNIVERSAL DEFINITIONS OF MYOCARDIALINFARCTION. THE UPPER REFERENCE LIMIT (URL) OF TROPONIN, DEFINED THE 99TH PERCENTILE OFcTnI DISTRIBUTION IN A REFERENCE POPULATION, HAS BEEN CONFIRMED THE DECISION THRESHOLDFOR PR DIAGNOSIS. Performed By: #### C MARTI, HSTROPN ####[facility] [address] [place], [place] [address]Pd. Donna Malone XR KNEE RT 4V or >on 022 XR KNEE RT 4V or > Normal [facility] CT HEAD WO [facility] 08-05-2022 CT HEAD WO CON Normal [facility] CON Normal [facility] CON Normal Th e [facility] L[facility] CON Normal [facility] Glucose Glucometer (BldC) [M ass/Vol]Ordered By: Sang Bauer on 07-20-2022 Glucose [Mass/Vol] 139 mg/dL [facility] Comment on above: Random Glucose Refer ence Range is dependent on time and content of last meal. Glucose of more than 200 mg/dL in a nonstressed, ambulatory subject supports the diagnosis of Diabetes Mellitus. No Panel InformationOrdered By: Sang Bauer on 07-20-2022 Bedside Glucose Comment Glu2: cleaned meter [facility] Cholesterol [Mass/volume] in Serum or PlasmaOrdered By: Sang Bauer on 07-18-2022 Cholesterol [Mass/Vol] 136 mg/dL 140-200 [facility] Comment on above: Chol less than 200 m g/dl low riskChol 201-239 mg/dl borderline riskChol 240 mg/dl and greater high risk Cholesterol in LDL Calc [Mas s/Vol]Ordered By: Sang Bauer on 07-18-2022 Cholesterol in LDL [Mass/Vol] 81 mg/dL 0-100 [facility] Comment on above: LDL ATP III CLASSIFI CATIONLDL less than 100 mg/dL OptimalLDL 100-129 mg/dL Near or above optimalLDL 130-159 mg/dL Borderline highLDL 160-189 mg/dL HighLDL greater than 189 mg/dL Very high Cholesterol in VLDL Calc [Ma ss/Vol]Ordered By: Sang Bauer on 07-18-2022 Cholesterol in VLDL [Mass/Vol] 17 mg/dL [facility] Serum or plasma high density lipoprotein (HDL) cholesterol measurementOrdered By: Sang Bauer on 07-18-2022 Cholesterol in HDL [Mass/Vol] 38 mg/dL 29-71 [facility] Comment on above: HDL CHOL ATP-III CLA SSIFICATION Cardiovascular RiskHDL > or equal to 60 mg/dL LOWHDL < 40 mg/dL HIGH Serum or plasma total choles terol/high density lipoprotein (HDL) cholesterol mass ratOrdered By: Sang Bauer on 07-18-2022 Cholesterol.total/Chol esterol in HDL [Mass ratio] 3.6 {ratio} <5.0 [facility] Triglyceride [Mass/volume] i n Serum or PlasmaOrdered By: Sang Bauer on 07-18-2022 Triglyceride [Mass/Vol] 85 mg/dL 35-149 [facility] Comment on above: TRIG ATP III CLASSIF ICATIONTRIG less than 150 mg/dL NormalTRIG 150-199 mg/dL Borderline highTRIG 200-500 mg/dL High TRIG greater than 500 mg/dL Very highStandard traceable to the Center for Disease Conrtrol and Prevention (CDC) test method. Activated partial thrombopla stin time (aPTT) in platelet poor plasma by coagulation aOrdered By: Gayathri Leal on 07-17-2022 aPTT Coag (PPP) [Time] 35.8 s 25.1-36.5 [facility] Albumin [Mass/volume] in Ser um or PlasmaOrdered By: Gayathri Leal on 07-17-2022 Albumin [Mass/Vol] 3.1 g/dL 3.2-5.5 [facility] Amphetamine Screen Ql (U)Ord ered By: Gayathri Leal on 07-17-2022 Amphetamines Ql (U) Negative Negative [facility] Automated erythrocytes count in urine sediment (number/area)Ordered By: Gayathri Leal on 07-17-2022 RBC Auto (Urine sed) [#/Area] 3-4 [HPF] 0-4 [facility] Automated leukocytes count i n urine sediment (number/area)Ordered By: Gayathri Leal on 07-17-2022 WBC Auto (Urine sed) [#/Area] 1-2 [HPF] 0-4 [facility] Barbiturates [Presence] in U rineOrdered By: Gayathri Leal on 07-17-2022 Barbiturates Ql (U) Negative Negative [facility] Basophils Auto (Bld) [#/Vol] Ordered By: Gayathri Leal on 07-17-2022 Basophils (Bld) [#/Vol] 0.1 10*3/uL 0.0-0.2 [facility] Basophils/100 WBC Auto (Bld) Ordered By: Gayathri Leal on 07-17-2022 Basophils/100 WBC (Bld) 1.0 % . [facility] Benzodiazepines [Presence] i n UrineOrdered By: Gayathri Leal on 07-17-2022 Benzodiazepines Ql (U) Positive Negative [facility] Bilirubin Test strip Ql (U)O rdered By: Gayathri Leal on 07-17-2022 Bilirubin Ql (U) Negative Negative [facility] COVID CepheidOrdered By: Olya Leal on 07-17-2022 SARS-CoV-2 (COVID-19) Ab IA Ql Negative Negative [facility] Comment on above: This is a duplicate CepheLumicity Xpert Xpress CoV-2/Flu/RSV Plus RNA by RT-PCR result to be used for statistical tracking purpose only. SARS-CoV-2 (COVID-19) RNA JOSÉ MIGUEL+probe Ql (Unsp spec) [facility] Cannabinoids [Presence] in U rine by Screen methodOrdered By: Gayathri Leal on 07-17-2022 Cannabinoids Screen Ql (U) Negative Negative [facility] Comment on above: These are unconfirme d results and should not be used for legal purposes. Drug Cut-Off Concentration: AMPH 1000 ng/mL EWA 200 ng/mL JOHN 200 ng/mL COCM 300 ng/mL OP 300 ng/mL PCP 25 ng/mL THC 20 ng/mL Color Auto (U)Ordered By: Dung Leal on 07-17-2022 Color (U) Yellow Yellow [facility] Creatine kinase [Enzymatic a ctivity/volume] in Serum or PlasmaOrdered By: Gayathri Leal on 07-17-2022 CK [Catalytic activity/Vol] 137 U/L 22-269 [facility] Creatinine and Glomerular fi ltration rate.predicted panel (S/P/Bld)Ordered By: Gayathri Leal on 07-17-2022 Creatinine [Mass/Vol] 1.06 mg/dL 0.64-1.27 [facility] Direct bilirubin measurement Ordered By: Gayathri Leal on 07-17-2022 Bilirubin.direct [Mass/Vol] mg/dL 0.0-0.4 [facility] Eosinophils Auto (Bld) [#/Vo l]Ordered By: Gayathri Leal on 07-17-2022 Eosinophils (Bld) [#/Vol] 0.1 10*3/uL 0.0-0.45 [facility] Eosinophils/100 WBC Auto (Bl d)Ordered By: Gayathri Leal on 07-17-2022 Eosinophils/100 WBC (Bld) 0.7 % . [facility] Erythrocyte distribution wid th Auto (RBC) [Ratio]Ordered By: Gayathri Leal on 07-17-2022 Erythrocyte distribution width (RBC) [Ratio] 15.8 % 12.0-14.8 [facility] Estimated glomerular filtrat ion rate (GFR) non- AmericanOrdered By: Gayathri Leal on 07-17-2022 GFR/1.73 sq M.predicted among non-blacks MDRD (S/P/Bld) [Vol rate/Area] > 60 mL/Min [facility] Globulin Calc (S) [Mass/Vol] Ordered By: Gayathri Leal on 07-17-2022 Globulin (S) [Mass/Vol] 3.0 g/dL [facility] Glucose mean value [Mass/vol ume] in Blood Estimated from glycated hemoglobinOrdered By: Sang Bauer on 07-17-2022 Average glucose Estimated from glycated hemoglobin (Bld) [Mass/Vol] 114 mg/dL [facility] Hematocrit Auto (Bld) [Volum e fraction]Ordered By: Gayathri Leal on 07-17-2022 Hematocrit (Bld) [Volume fraction] 37.3 % 38.8-50.0 [facility] Hemoglobin A1c percentageOrd ered By: Sang Bauer on 07-17-2022 HbA1c (Bld) [Mass fraction] 5.6 % 4.3-5.6 [facility] Comment on above: Increased risk for d iabetes: 5.7 - 6.4diabetes: >6.4glycemic control for adults with diabetes: <7.0 Hemoglobin [Mass/volume] in BloodOrdered By: Gayathri Leal on 07-17-2022 Hemoglobin (Bld) [Mass/Vol] 12.3 g/dL 13.0-17.0 [facility] Ketones Auto test strip (U) [Mass/Vol]Ordered By: Gayathri Leal on 07-17-2022 Ketones (U) [Mass/Vol] 2+ Negative [facility] - Chemistry and C hemistry - challengeOrdered By: Gayathri Leal on 07-17-2022 Natriuretic peptide B (Bld) [Mass/Vol] 116.0 pg/mL 5-100 [facility] - CoagulationOrde red By: Gayathri Leal on 07-17-2022 PT Coag (PPP) [Time] 12.5 s 9.0-12.9 [facility] - Drug toxicology Ordered By: Gayathri Leal on 07-17-2022 Opiates Ql (U) Negative Negative [facility] - Hematology and Cell countsOrdered By: Gayathri Leal on 07-17-2022 Nucleated RBC/100 WBC (Bld) [Ratio] 0.1 % 0-0.5 [facility] - UrinalysisOrder ed By: Gayathri Leal on 07-17-2022 Hyaline casts LM Ql (Urine sed) None seen [LPF] 0-8 [facility] Leukocytes [#/volume] in Blo od by Automated countOrdered By: Gayathri Leal on 07-17-2022 WBC (Bld) [#/Vol] 7.8 10*3/uL 4.5-11.0 [facility] Lymphocytes Auto (Bld) [#/Vo l]Ordered By: Gayathri Leal on 07-17-2022 Lymphocytes (Bld) [#/Vol] 2.3 10*3/uL 1.00-4.8 [facility] Lymphocytes/100 WBC Auto (Bl d)Ordered By: Gayathri Leal on 07-17-2022 Lymphocytes/100 WBC (Bld) 29.5 % . [facility] MCH Auto (RBC) [Entitic mass ]Ordered By: Gayathri Leal on 07-17-2022 MCH (RBC) [Entitic mass] 30.2 pg 27.5-35.2 [facility] MCHC Auto (RBC) [Mass/Vol]Or dered By: Gayathri Leal on 07-17-2022 MCHC (RBC) [Mass/Vol] 33.1 g/dL 32.5-35.6 [facility] MCV Auto (RBC) [Entitic vol] Ordered By: Gayathri Leal on 07-17-2022 MCV (RBC) [Entitic vol] 91.5 fL 83.5-101 [facility] Monocyte %Ordered By: Zeinab Leal on 07-17-2022 Monocyte % 20 umol/L [facility] Monocytes Auto (Bld) [#/Vol] Ordered By: Gayathri Leal on 07-17-2022 Monocytes (Bld) [#/Vol] 0.4 10*3/uL 0.0-0.8 [facility] Monocytes/100 WBC Auto (Bld) Ordered By: Gayathri Leal on 07-17-2022 Monocytes/100 WBC (Bld) 5.4 % . [facility] Neutrophils Auto (Bld) [#/Vo l]Ordered By: Gayathri Leal on 07-17-2022 Neutrophils (Bld) [#/Vol] 4.9 10*3/uL 1.8-7.7 [facility] Neutrophils/100 WBC Auto (Bl d)Ordered By: Gayathri Leal on 07-17-2022 Neutrophils/100 WBC (Bld) 63.4 % . [facility] Nitrite Test strip Ql (U)Ord ered By: Gayathri Leal on 07-17-2022 Nitrite Ql (U) Negative Negative [facility] No Panel InformationOrdered By: Gayathri Leal on 07-17-2022 Estimated GFR () > 60 mL/Min [facility] Comment on above: GFR estimated refere nce range: According to KDOQI guidelines, <60 ml/min/1.73m2 is sufficient to diagnose a patient with chronic kidney disease. Pharmacy Creatinine Clearance (Chem N/A [facility] Phencyclidine Screen Ql (U)O rdered By: Gayathri Leal on 07-17-2022 Phencyclidine Ql (U) Negative Negative [facility] Platelet mean volume Auto (B ld) [Entitic vol]Ordered By: Gayathri Leal on 07-17-2022 Platelet mean volume (Bld) [Entitic vol] 10.2 fL 6.6-10.1 [facility] Platelet poor plasma interna tional normalized ratio (INR) by coagulation assay (relatOrdered By: Gayathri Leal on 07-17-2022 INR Coag (PPP) [Relative time] 1.1 {INR} [facility] Comment on above: INR Therapeutic Rang e A) Pre- and Peroperative OAT started two weeks before surgery. NOT HIP SURGERY: 1.5 - 2.5 HIP SURGERY: 2 - 3B) Primary and secondary prevention of venous THROMBOSIS: 2 - 3C) Active venous thrombosis, pulmonary embolismand prevention of recurrent venous thrombosis: 2 - 3D) Prevention of arterial thromboembolismincluding patients with mechanical heart valves: 3 - 4.5 Platelets Auto (Bld) [#/Vol] Ordered By: Gayathri Leal on 07-17-2022 Platelets (Bld) [#/Vol] 239 10*3/uL 150-450 [facility] Protein Auto test strip (U) [Mass/Vol]Ordered By: Gayathri Leal on 07-17-2022 Protein (U) [Mass/Vol] Negative Negative [facility] Protein [Mass/volume] in Ser um or PlasmaOrdered By: Gayathri Leal on 07-17-2022 Protein [Mass/Vol] 6.1 g/dL 6.1-7.9 [facility] RBC Auto (Bld) [#/Vol]Ordere d By: Gayathri Leal on 07-17-2022 RBC (Bld) [#/Vol] 4.07 10*6/uL 3.90-5.60 [facility] Serum or plasma alanine del valle otransferase measurement without P-5'-P (enzymatic activiOrdered By: Gayathri Leal on 07-17-2022 ALT No additional P-5'-P [Catalytic activity/Vol] 13 U/L 10-60 [facility] Serum or plasma albumin/glob ulin mass ratioOrdered By: Gayathri Leal on 07-17-2022 Albumin/Globulin [Mass ratio] 1.0 {ratio} [facility] Serum or plasma alkaline gail sphatase measurement (enzymatic activity/volume)Ordered By: Gayathri Leal on 07-17-2022 ALP [Catalytic activity/Vol] 37 U/L 32-92 [facility] Serum or plasma anion gap de terminationOrdered By: Gayathri Leal on 07-17-2022 Anion gap [Moles/Vol] 12.1 mmol/L 6.0-15.0 [facility] Serum or plasma aspartate am inotransferase measurement (enzymatic activity/volume)Ordered By: Gayathri Leal on 07-17-2022 AST [Catalytic activity/Vol] 15 U/L 10-42 [facility] Serum or plasma calcium deepti urement (mass/volume)Ordered By: Gayathri Leal on 07-17-2022 Calcium [Mass/Vol] 8.8 mg/dL 8.2-10.2 [facility] Serum or plasma chloride deepak surement (moles/volume)Ordered By: Gayathri Leal on 07-17-2022 Chloride [Moles/Vol] 108 mmol/L 95-114 [facility] Serum or plasma creatine kin ase MB (CKMB)/total creatine kinase (CK) ratio by calculaOrdered By: Gayathri Leal on 07-17-2022 CK.MB Calc [Catalytic fraction] 2.6 % 0.00-2.50 [facility] Serum or plasma creatine kin ase MB measurement (mass/volume)Ordered By: Gayathri Leal on 07-17-2022 CK.MB [Mass/Vol] 3.6 ng/mL 0.6-6.3 [facility] Serum or plasma glucose deepti urement (mass/volume)Ordered By: Gayathri Leal on 07-17-2022 Glucose [Mass/Vol] 91 mg/dL 70-100 [facility] Comment on above: ADA recommended refe rence rangeRandom Glucose Reference Range is dependent on time and content of last meal. Glucose of more than 200 mg/dL in a nonstressed, ambulatory subject supports the diagnosis of Diabetes Mellitus. Serum or plasma non-glucuron idated bilirubin measurement (mass/volume)Ordered By: Gayathri Leal on 07-17-2022 Bilirubin.indirect [Mass/Vol] TNP [facility] Comment on above: Test not performed Serum or plasma potassium me asurement (moles/volume)Ordered By: Gayathri Leal on 07-17-2022 Potassium [Moles/Vol] 4.0 mmol/L 3.5-5.1 [facility] Serum or plasma sodium measu rement (moles/volume)Ordered By: Gayathri Leal on 07-17-2022 Sodium [Moles/Vol] 139 mmol/L 136-146 [facility] Serum or plasma total biliru bin measurement (mass/volume)Ordered By: Gayathri Leal on 07-17-2022 Bilirubin [Mass/Vol] 0.8 mg/dL 0.3-1.2 [facility] Serum or plasma total carbon dioxide measurement (moles/volume)Ordered By: Gayathri Leal on 07-17-2022 CO2 [Moles/Vol] 22.9 mmol/L 22.0-30.0 [facility] Serum or plasma urea nitroge n measurement (mass/volume)Ordered By: Gayathri Leal on 07-17-2022 Urea nitrogen [Mass/Vol] 12 mg/dL 9-23 [facility] Specific gravity Auto test s trip (U) [Rel density]Ordered By: Gayathri Leal on 07-17-2022 Specific gravity (U) [Rel density] 1.024 1.001-1.03 0 [facility] Squamous epithelial cells de tection in urine sediment by light microscopyOrdered By: Gayathri Leal on 07-17-2022 Epithelial cells.squamous LM Ql (Urine sed) None seen [HPF] 0-2 [facility] Troponin I.cardiac [Mass/vol ume] in Serum or Plasma by High sensitivity methodOrdered By: Sang Bauer on 07-17-2022 Troponin I.cardiac High sensitivity method [Mass/Vol] 7 pg/mL 0-20 [facility] Urine bacteria detection by automated methodOrdered By: Gayathri Leal on 07-17-2022 Bacteria Auto Ql (U) None seen None Seen [facility] Urine clarity by refractomet ry automatedOrdered By: Gayathri Leal on 07-17-2022 Clarity Refractometry automated (U) Clear Clear [facility] Urine cocaine detectionOrder ed By: Gayathri Leal on 07-17-2022 Cocaine Ql (U) Negative Negative [facility] Urine glucose measurement by automated test strip (mass/volume)Ordered By: Gayathri Leal on 07-17-2022 Glucose Auto test strip (U) [Mass/Vol] Normal mg/dL Normal [facility] Urine hemoglobin detection b y automated test stripOrdered By: Gayathri Leal on 07-17-2022 Hemoglobin Auto test strip Ql (U) Negative Negative [facility] Urine leukocyte esterase det ection by automated test stripOrdered By: Gayathri Leal on 07-17-2022 Leukocyte esterase Auto test strip Ql (U) 1+ Negative [facility] Urobilinogen Auto test strip (U) [Mass/Vol]Ordered By: Gayathri Leal on 07-17-2022 Urobilinogen (U) [Mass/Vol] Normal mg/dL Normal [facility] pH Auto test strip (U)Ordere d By: Gayathri Leal on 07-17-2022 pH (U) 6.5 [pH] 5.0-9.0 [facility] AMMONIAon 07-16-2022 Ammonia (P) [Moles/Vol] 44 umol/L Critically high [facility] Comment on above: Performed By: #### A MM ####[facility] [address] [place], [place] [address]Dr. Donna Malone BNPon 07-16-2022 Natriuretic peptide B (Bld) [Mass/Vol] 236.0 pg/mL Normal <=900.0 [facility] Comment on above: Performed By: #### C MP, BNP ####[facility] [address] [place], [place] [address]Dr. Donna Malone CBC AUTO DIFFon 07-16-2022 BASO # 0.1 103/ul Normal 0.0-0.1 [facility] Comment on above: Performed By: #### C BC ####[facility] [address] [place], [place] [address]Dr. Rubyyvan Malone Basophils/100 WBC (Bld) 1.0 % Normal 0.2-2.0 [facility] Comment on above: Performed By: #### C BC ####[facility] [address] [place], [place] [address]Dr. Donna Malone EO # 0.2 103/ul Normal 0.0-0.7 [facility] Comment on above: Performed By: #### C BC ####[facility] [address] [place], [place] [address]Dr. Donna Malone Eosinophils/100 WBC (Bld) 3.3 % Normal 0.9-7.0 [facility] Comment on above: Performed By: #### C BC ####[facility] [address] [place], [place] [address]Dr. Donna Malone Erythrocyte distribution width (RBC) [Ratio] 15.1 % Critically high 11.0-15.0 [facility] Comment on above: Performed By: #### C BC ####[facility] [address] [place] [address]Dr. Donna Malone Hematocrit (Bld) [Volume fraction] 36.1 % Critically low 42.0-54.0 [facility] Comment on above: Performed By: #### C BC ####[facility] [address] [place] [address]Dr. Donna Malone Hemoglobin (Bld) [Mass/Vol] 12.0 g/dL Critically low 14.0-18.0 [facility] Comment on above: Performed By: #### C BC ####[facility] [address] [place], [place] [address]Dr. Donna Malone IG # 0.01 10e3/ul Normal 0.00-0.03 [facility] Comment on above: Performed By: #### C BC ####[facility] [address] [place], [place] [address]Dr. Donna Malone IG % 0.2 % Normal 0.0-0.5 [facility] Comment on above: Performed By: #### C BC ####[facility] [address] [place], [place] [address]Dr. Donna Malone LYMPH # 2.5 103/ul Normal 1.2-3.8 [facility] Comment on above: Performed By: #### C BC ####[facility] [address] [place], [place] [address]Dr. Donna Malone Lymphocytes/100 WBC (Bld) 41.1 % Normal 20.5-60.0 [facility] Comment on above: Performed By: #### C BC ####[facility] [address] [place], [place] [address]Dr. Donna Malone MANUAL DIFF REQ NO Normal [facility] Comment on above: Performed By: #### C BC ####[facility] [address] [place], [place] [address]Dr. Donna Malone MCH (RBC) [Entitic mass] 30.6 pg Normal 25.9-34.0 [facility] Comment on above: Performed By: #### C BC ####[facility] [address] [place] [id number]. Donna Malone MCHC (RBC) [Mass/Vol] 33.2 g/dL Normal 29.9-35.2 [facility] Comment on above: Performed By: #### C BC ####[facility] [address] [place] [id number]. Donna Malone MCV (RBC) [Entitic vol] 92.1 fL Normal 80.0-94.0 [facility] Comment on above: Performed By: #### C BC ####[facility] [address] [place] [id number]. Donna Faisal MONO # 0.5 103/ul Normal 0.3-0.8 [facility] Comment on above: Performed By: #### C BC ####[facility] [address] [place], [place] [address]Dr. Donna Malone Monocytes/100 WBC (Bld) 7.4 % Normal 1.7-12.0 [facility] Comment on above: Performed By: #### C BC ####[facility] [address] [place], [place] [address]Dr. Donna Malone NEUT # 2.9 103/ul Normal 1.4-6.5 [facility] Comment on above: Performed By: #### C BC ####[facility] [address] [place] [id number]. Donna Malone Neutrophils/100 WBC (Bld) 47.0 % Normal 43.0-75.0 [facility] Comment on above: Performed By: #### C BC ####[facility] [address] [place], [place] [address]Dr. Donna Malone Platelet mean volume (Bld) [Entitic vol] 11.4 fL Normal 9.5-13.5 [facility] Comment on above: Performed By: #### C BC ####[facility] [address] [place] [id number]. Donna Malone PLT 206 103/ul Normal 150-450 [facility] Comment on above: Performed By: #### C BC ####[facility] [address] [place] [id number]. Donna Faisal RBC 3.92 106/ul Critically low 4.70-6.10 [facility] Comment on above: Performed By: #### C BC ####[facility] [address] [place] [address]Dr. Donna Faisal WBC 6.1 103/ul Normal 4.0-11.0 [facility] Comment on above: Performed By: #### C BC ####[facility] [address] [place] [address]Dr. Rubyyvan Malone ECHO LIMITED STUDYon 022 ECHO LIMITED STUDY Normal [facility] MRI BRAIN WO CONon 2 MRI BRAIN WO CON Normal [facility] PROF 14(COMP METB)on 022 Albumin [Mass/Vol] 2.8 g/dL Critically low 3.4-5.0 [facility] Comment on above: Performed By: #### C MP, BNP ####[facility] [address] [place] [address]Dr. Donna Faisal Albumin/Globulin [Mass ratio] 0.9 {ratio} Normal [facility] Comment on above: Performed By: #### C MP, BNP ####[facility] [address] [place] [address]Dr. Donna Malone ALP [Catalytic activity/Vol] 36 U/L Critically low 46-116 [facility] Comment on above: Performed By: #### C MP, BNP ####[facility] [address] [place] [address]Dr. Donna Malone ALT [Catalytic activity/Vol] 13 U/L Critically low 16-63 [facility] Comment on above: Performed By: #### C MP, BNP ####[facility] [address] [place] [address]Dr. Donna Malone Anion gap [Moles/Vol] 10.4 mmol/L Normal [facility] Comment on above: Performed By: #### C MP, BNP ####[facility] [address] [place], [place] [address]Dr. Donna Malone AST [Catalytic activity/Vol] 13 U/L Critically low 15-37 [facility] Comment on above: Performed By: #### C MP, BNP ####[facility] [address] [place] [address]Dr. Donna Malone Bilirubin [Mass/Vol] 0.3 mg/dL Normal 0.2-1.0 [facility] Comment on above: Performed By: #### C MP, BNP ####[facility] [address] [place] [address]Dr. Donna Malone Calcium [Mass/Vol] 8.2 mg/dL Critically low 8.5-10.1 Th e [facility] Comment on above: Performed By: #### C MP, BNP ####[facility] [address] [place], [place] [address]Dr. Donna Malone Chloride [Moles/Vol] 108 mmol/L Critically high 98-107 [facility] Comment on above: Performed By: #### C MP, BNP ####[facility] Dcinyqaagn95[address] [place], [place] [address]Dr. Donna Malone CO2 [Moles/Vol] 25.5 mmol/L Normal 21.0-32.0 [facility] Comment on above: Performed By: #### C MP, BNP ####[facility] Enbleaorqg[address] [place], [place] [address]Dr. Donna Malone Creatinine [Mass/Vol] 0.92 mg/dL Normal 0.70-1.30 [facility] Comment on above: Performed By: #### C MP, BNP ####[facility] Kkvtzbqvur437[address] [place], [place] [address]Dr. Donna Malone EGFR-AF MOLDOVAN >60 Normal >=60 [facility] Comment on above: Performed By: #### C MP, BNP ####[facility] Sjpbhdvuro04[address] [place], [place] [address]Dr. Donna Malone EGFR-NON AF MOLDOVAN >60 Normal >=60 [facility] Comment on above: Performed By: #### C MP, BNP ####[facility] Mjizwdvybc[address] [place] [address]Dr. Donna Malone Globulin (S) [Mass/Vol] 3.2 g/dL Normal [facility] Comment on above: Performed By: #### C MP, BNP ####[facility] Ovhcyoavbv5[address] [place], [place] [address]Dr. Donna Malone Glucose [Mass/Vol] 76 mg/dL Normal 74-106 [facility] Comment on above: Performed By: #### C MP, BNP ####[facility] Qcmvjahtlt8513[address] [place], [place] [address]Dr. Donna Malone Potassium [Moles/Vol] 3.9 mmol/L Normal 3.5-5.1 [facility] Comment on above: Performed By: #### C MP, BNP ####[facility] Ljncdfngdq517[address] [place], [place] [address]Dr. Donna Malone Protein [Mass/Vol] 6.0 g/dL Critically low 6.4-8.2 [facility] Comment on above: Performed By: #### C MP, BNP ####[facility] Nwogvchfkt7[address] [place], [place] [address]Dr. Donna Malone Sodium [Moles/Vol] 140 mmol/L Normal 136-145 [facility] Comment on above: Performed By: #### C MP, BNP ####[facility] Lqthnfpect0515[address] [place], [place] [address]Dr. Donna Malone Urea nitrogen [Mass/Vol] 12.0 mg/dL Normal 7.0-18.0 [facility] Comment on above: Performed By: #### C MP, BNP ####[facility] Yhyejoolij3019[address] [place], [place] [address]Dr. Donna Malone Urea nitrogen/Creatinine [Mass ratio] 13.0 mg/mg Normal [facility] Comment on above: Performed By: #### C MP, BNP ####[facility] Hpqwbzhurp44[address] [place], [place] [address]Dr. Donna Malone VIT B12 AND FOLATEon 022 Cobalamin (Vitamin B12) [Mass/Vol] 532.0 pg/mL Normal 193.0-986. 0 [facility] Comment on above: Performed By: #### B 12FOL ####[facility] Zfknqfffpg[address] [place] [address]Dr. Donna Malone FOLATE 13.60 ng/mL Normal 8.60-58.90 [facility] Comment on above: Performed By: #### B 12FOL ####[facility] Cqhrlxcibg0994 [place] [address]Dr. Donna Malone AMMONIAon 07-15-2022 Ammonia (P) [Moles/Vol] 23 umol/L Normal [facility] Comment on above: Performed By: #### A MM ####[facility] Kmlyizhbxs5065[address] [place], [place] [address]Dr. Donna Malone BLOOD GASES BTYon 07-15-2022 02 MODE ROOM AIR Normal [facility] Comment on above: Performed By: #### A BG ####[facility] Swxldxeyai3435[address] [place], [place] [address]Dr. Donna Malone ALLENS TEST Positive Normal [facility] Comment on above: Performed By: #### A BG ####[facility] Bpnnyyujok675[address] [place], [place] [address]Dr. Donna Malone Base excess Calc (Bld) [Moles/Vol] -1.3000 mmol/L Normal -2.0-2.0 [facility] Comment on above: Performed By: #### A BG ####[facility] Olgqxgpbyl4[address] [place], [place] [address]Dr. Donna Malone BIPAP PRESSURE Normal [facility] Comment on above: Performed By: #### A BG ####[facility] Ihpumirlhn655166 [address] [place], [place] [address]Dr. Donna Malone CPAP Normal [facility] Comment on above: Performed By: #### A BG ####[facility] Wcbfuyjzey249[address] [place], [place] [address]Dr. Donna Malone FIO2 Normal [facility] Comment on above: Performed By: #### A BG ####[facility] Pvcijysfal718466 [address] [place], [place] [address]Dr. Donna Malone HCO3 (Bld) [Moles/Vol] 22.7 mmol/L Normal 22.0-26.0 [facility] Comment on above: Performed By: #### A BG ####[facility] Kievbutbow487966 [address] [place], [place] [address]Dr. Donna Malone LPM Normal [facility] Comment on above: Performed By: #### A BG ####[facility] Zxptepoznv9979[address] [place], [place] [address]Dr. Donna Malone MINUTE VOLUME Normal [facility] Comment on above: Performed By: #### A BG ####[facility] Ymyhahuzsr7312[address] [place], [place] [address]Dr. Donna Malone Oxygen (Bld) [Partial pressure] 77.7 mm[Hg] Critically low 80.0-100.0 [facility] Comment on above: Performed By: #### A BG ####[facility] Booriolkkn2268[address] [place], [place] [address]Dr. Donna Malone Oxygen saturation in Blood 95.9 % Normal 95.0-100.0 [facility] Comment on above: Performed By: #### A BG ####[facility] Ubxpbnsorx9822[address] [place], [place] [address]Dr. Donna Malone PCO2 33.0 mmHg Critically low 35.0-45.0 [facility] Comment on above: Performed By: #### A BG ####[facility] Gcmoeuxfcs2669[address] [place], [place] [address]Dr. Donna Malone PEEP [facility] Comment on above: Performed By: #### A BG ####[facility] Khuvcnkdfq6540[address] [place], [place] [address]Dr. Donna Malone pH (Bld) 7.446 [pH] Normal 7.350-7.45 0 [facility] Comment on above: Performed By: #### A BG ####[facility] Ihtocaxfkf7110[address] [place], [place] [address]Dr. Donna Malone PIP Normal [facility] Comment on above: Performed By: #### A BG ####[facility] Damjaidacq4038[address] [place], [place] [address]Dr. Donna Malone PS Normal [facility] Comment on above: Performed By: #### A BG ####[facility] Ptlhgtlxyo[address] [place] [address]Dr. Donna Malone PUNCTURE SITE RB [facility] Comment on above: Performed By: #### A BG ####[facility] Wfrdrdwiww9196 [place] [address]Dr. Donna Malone RATE Normal [facility] Comment on above: Performed By: #### A BG ####[facility] Tslinnmkwl5273 [place] [address]Dr. Donna Malone VENT MODE [facility] Comment on above: Performed By: #### A BG ####[facility] Wffdztdkmz7495 [place] [address]Dr. Donna Malone [place] [facility] Comment on above: Performed By: #### A BG ####[facility] Gtevrrykru6815[address] [place], [place] [address]Dr. Donna Malone BNPon 07-15-2022 Natriuretic peptide B (Bld) [Mass/Vol] 111.0 pg/mL Normal <=900.0 [facility] Comment on above: Performed By: #### B FLY RAIL OPERATOR, CMP, CMADM ####[facility] Gawqqjfdrf475[address] [place] [address]Dr. Donna Malone CARDIAC MJ 3-6on 2 CK [Catalytic activity/Vol] 102 U/L Normal 39-308 [facility] Comment on above: Performed By: #### C MREP ####[facility] Tqulgiuijx023[address] [place] [address]Dr. Donna Malone CK.MB [Mass/Vol] 3.67 ng/mL Critically high <=3.60 [facility] Comment on above: Performed By: #### C MREP ####[facility] Rcqzvnqiog[address] [place] [address]Dr. Donna Malone HSTROP 13.1 pg/mL Normal 4.0-76.1 [facility] Comment on above: Result Comment: CUT- OFF POINTS HAVE BEEN ESTABLISHED BASED ON THE FOURTH UNIVERSAL DEFINITIONS OF MYOCARDIALINFARCTION. THE UPPER REFERENCE LIMIT (URL) OF TROPONIN, DEFINED THE 99TH PERCENTILE OFcTnI DISTRIBUTION IN A REFERENCE POPULATION, HAS BEEN CONFIRMED THE DECISION THRESHOLDFOR PR DIAGNOSIS. Performed By: #### C MREP ####[facility] Eotpwkwnot[address] [place] [id number]. Donna Malone CK [Catalytic activity/Vol] 89 U/L Normal 39-308 [facility] Comment on above: Performed By: #### C MREP ####[facility] Ecqgtnogld4382 [place] [address]Dr. Donna Malone CK.MB [Mass/Vol] 3.37 ng/mL Normal <=3.60 [facility] Comment on above: Performed By: #### C MREP ####[facility] Sxexsjgogi9[address] [place] [address]Dr. Donna Malone HSTROP 11.2 pg/mL Normal 4.0-76.1 [facility] Comment on above: Result Comment: CUT- OFF POINTS HAVE BEEN ESTABLISHED BASED ON THE FOURTH UNIVERSAL DEFINITIONS OF MYOCARDIALINFARCTION. THE UPPER REFERENCE LIMIT (URL) OF TROPONIN, DEFINED THE 99TH PERCENTILE OFcTnI DISTRIBUTION IN A REFERENCE POPULATION, HAS BEEN CONFIRMED THE DECISION THRESHOLDFOR PR DIAGNOSIS. Performed By: #### C MREP ####[facility] Icexfnfucy99[address] [place] [address]Dr. Donna Malone CARDIAC MJ ADMITon 022 CK [Catalytic activity/Vol] 76 U/L Normal 39-308 [facility] Comment on above: Performed By: #### B FLY RAIL OPERATOR, CMP, CMADM ####[facility] Ylqpfegpyu0997 [place] [address]Dr. Donna Malone CK.MB [Mass/Vol] 2.59 ng/mL Normal <=3.60 [facility] Comment on above: Performed By: #### B FLY RAIL OPERATOR, CMP, CMADM ####[facility] Rolkihsjvx8003 [place] [id number]. Donna Malone HSTROP 10.1 pg/mL Normal 4.0-76.1 [facility] Comment on above: Result Comment: CUT- OFF POINTS HAVE BEEN ESTABLISHED BASED ON THE FOURTH UNIVERSAL DEFINITIONS OF MYOCARDIALINFARCTION. THE UPPER REFERENCE LIMIT (URL) OF TROPONIN, DEFINED THE 99TH PERCENTILE OFcTnI DISTRIBUTION IN A REFERENCE POPULATION, HAS BEEN CONFIRMED THE DECISION THRESHOLDFOR PR DIAGNOSIS. Performed By: #### B FLY RAIL OPERATOR, CMP, CMADM ####[facility] Dixrzjfafq79[address] [place] [address]Dr. Donna Malone BINDU 109 ng/mL Critically high 16-96 [facility] Comment on above: Performed By: #### B FLY RAIL OPERATOR, CMP, CMADM ####[facility] Zlsqdgiumv1524 [place] [address]Dr. Donna Malone CBC AUTO DIFFon 07-15-2022 BASO # 0.0 103/ul Normal 0.0-0.1 [facility] Comment on above: Performed By: #### C BC ####[facility] Xdadtfttox4514[address] [place], [place] [address]Dr. Donna Malone Basophils/100 WBC (Bld) 0.7 % Normal 0.2-2.0 [facility] Comment on above: Performed By: #### C BC ####[facility] Ycwmgtczwj6[address] [place], [place] [address]Dr. Donna Malone EO # 0.1 103/ul Normal 0.0-0.7 [facility] Comment on above: Performed By: #### C BC ####[facility] Mnhzggwbkz5[address] [place], [place] [address]Dr. Donna Malone Eosinophils/100 WBC (Bld) 2.3 % Normal 0.9-7.0 [facility] Comment on above: Performed By: #### C BC ####[facility] Uojzanjrps0634[address] [place], [place] [address]Dr. Donna Malone Erythrocyte distribution width (RBC) [Ratio] 15.2 % Critically high 11.0-15.0 [facility] Comment on above: Performed By: #### C BC ####[facility] Cpdksqhonq380[address] [place], [place] [address]Dr. Donna Malone Hematocrit (Bld) [Volume fraction] 34.8 % Critically low 42.0-54.0 [facility] Comment on above: Performed By: #### C BC ####[facility] Rkoxmumbgp7180 [place] [id number]. Donna Malone Hemoglobin (Bld) [Mass/Vol] 11.4 g/dL Critically low 14.0-18.0 [facility] Comment on above: Performed By: #### C BC ####[facility] Hfehyaqnpu1175 [place] [address]Dr. Donna Malone IG # 0.01 10e3/ul Normal 0.00-0.03 [facility] Comment on above: Performed By: #### C BC ####[facility] Fuiexgtppz9366 [place] [address]Dr. Donna Malone IG % 0.2 % Normal 0.0-0.5 [facility] Comment on above: Performed By: #### C BC ####[facility] Fkcxyvuwrr23[address] [place], [place] [address]Dr. Donna Malone LYMPH # 1.6 103/ul Normal 1.2-3.8 [facility] Comment on above: Performed By: #### C BC ####[facility] Zoxusetizi50[address] [place] [address]Dr. Donna Malone Lymphocytes/100 WBC (Bld) 26.4 % Normal 20.5-60.0 [facility] Comment on above: Performed By: #### C BC ####[facility] Enhhzbskgb3691 [place] [address]Dr. Donna Malone MANUAL DIFF REQ NO Normal [facility] Comment on above: Performed By: #### C BC ####[facility] Jfgdrrtrbj0625 [place] [id number]. Donna Malone MCH (RBC) [Entitic mass] 30.7 pg Normal 25.9-34.0 [facility] Comment on above: Performed By: #### C BC ####[facility] Aefsqbkxoy5040 [place] [id number]. Donna Malone MCHC (RBC) [Mass/Vol] 32.8 g/dL Normal 29.9-35.2 [facility] Comment on above: Performed By: #### C BC ####[facility] Qlwycwjhuz8690 [place] [address]Dr. Donna Malone MCV (RBC) [Entitic vol] 93.8 fL Normal 80.0-94.0 [facility] Comment on above: Performed By: #### C BC ####[facility] Hhedjjwooc7589 [place] [address]Dr. Donna Malone MONO # 0.5 103/ul Normal 0.3-0.8 [facility] Comment on above: Performed By: #### C BC ####[facility] Ndcdxmuswe7696 [place] [address]Dr. Donna Malone Monocytes/100 WBC (Bld) 7.5 % Normal 1.7-12.0 [facility] Comment on above: Performed By: #### C BC ####[facility] Wzjdhtipmn[address] [place], [place] [address]Dr. Donna Malone NEUT # 3.8 103/ul Normal 1.4-6.5 [facility] Comment on above: Performed By: #### C BC ####[facility] Qistvhmusf[address] [place], [place] [address]Dr. Donna Malone Neutrophils/100 WBC (Bld) 62.9 % Normal 43.0-75.0 [facility] Comment on above: Performed By: #### C BC ####[facility] Kprnpkllpv[address] [place], [place] [address]Dr. Donna Malone Platelet mean volume (Bld) [Entitic vol] 11.7 fL Normal 9.5-13.5 [facility] Comment on above: Performed By: #### C BC ####[facility] Anbfurplmn2450 [place] [id number]. Donna Malone PLT 220 103/ul Normal 150-450 [facility] Comment on above: Performed By: #### C BC ####[facility] Hrstsqafaj4226 [place] [id number]. Donna Faisal RBC 3.71 106/ul Critically low 4.70-6.10 [facility] Comment on above: Performed By: #### C BC ####[facility] Uaclojjvhi4539 [place], [place] [address]My. Donna Malone WBC 6.0 103/ul Normal 4.0-11.0 [facility] Comment on above: Performed By: #### C BC ####[facility] Sxxrpabrlh3362 [place], [place] [address]Hu. Donna Malone CT CSPINE WO CONon 2 CT CSPINE WO CON Normal [facility] CT HEAD WO CONon 07-15-2022 CT HEAD WO CON Normal [facility] CTA NECK WO W CONon 07-15-20 CTA NECK WO W CON Normal [facility] CULTURE URINEon 07-15-2022 CULTURE URINE Culture Observations : LIGHT GROWTH OF MIXED SKIN MICHAEL. NO POTENTIAL PATHOGENS SEEN. Normal [facility] Comment on above: Performed By: #### U RCX ####[facility] Bcolozksla1420 [place], [place] [address]Eg. Donna Malone Covid-19 PCR (CVDTB)on SARS-CoV-2 (COVID-19) RNA JOSÉ MIGUEL+probe Ql (Unsp spec) Not detected Normal NOT DETECTED [facility] Comment on above: Result Comment: When diagnostic testing is negative, the possibility of a false negative should be considered inthe context of a patient's recent exposures and the presence of clinical signs and symptomsconsistent with SARS-CoV-2.This test is not yet approved or cleared by the [place] FDA. When there are no FDA-approved or cleared tests available, and other criteria are met, FDA can make tests available under an emergency access mechanism called an Emergency Use Authorization (EUA). The EUA for this test is supported by the Land [employer] Manager of Health and Human Service's declaration that circumstances exist to justify the emergency use of in vitro diagnostics for the detection and/or diagnosis of the virus that causes COVID-19. This EUA will remain in effect for the duration of the COVID-19 declaration justifying emergency of IVDs, unless it is terminated or revoked by the FDA (after which the test may no longer be used). Performed By: #### C VDTBH ####[facility] Wjdzxulrle[address] [place] [address]Dr. Donna Malone DEPAKENE/VALPROICon 07-15-20 22 DEPAKENE 53.6 ug/ml Normal 50.0-100.0 [facility] Comment on above: Performed By: #### V ALP ####[facility] Mlqhovrscu14[address] [place] [address]Dr. Donna Malone DRUG SCREEN RAPID (URINE)on 07-15-2022 AMP Negative Normal NEGATIVE [facility] Comment on above: Performed By: #### D SHARONA, ERUR ####[facility] Mugsrlbxfz8[address] [place] [address]Dr. Donna Malone BAR Negative Normal NEGATIVE [facility] Comment on above: Performed By: #### D SHARONA, ERUR ####[facility] Uyuvwxzcaz037[address] [place], [place] [address]Dr. Donna Malone BUP Negative Normal NEGATIVE [facility] Comment on above: Performed By: #### Calvin TABOR, ERUR ####[facility] Ddazobsszm2133 [place] [address]Dr. Donna Malone BZO Positive Abnormal NEGATIVE [facility] Comment on above: Performed By: #### D SHARONA, ERUR ####[facility] Kqwselvyap9667 [place] [address]Dr. Donna Malone EVONNE Negative Normal NEGATIVE [facility] Comment on above: Performed By: #### Calvin TABOR, ERUR ####[facility] Rqizjhpruz3[address] [place], [place] [address]Dr. Donna Malone CUT-OFFS SEE BELOW Normal [facility] Comment on above: Result Comment: AMP (Amphetamine): 500ng/mL, BAR (Barbituates): 200 ng/mL, BZO (Benzodiazepines): 150 ng/mL, BUP (Buprenorphine): 10 ng/mL, EVONNE (Cocaine): 150 ng/mL, mAMP (Methamphetamine): 500 ng/mL, MTD (Methadone): 200 ng/mL, OPI (Opiates): 100 ng/mL, OXY (Oxycodone): 100 ng/mL, PCP (Phencyclidine): 25 ng/mL, PPX (Propoxyphene): 300 ng/mL, THC (Cannabinoids): 50 ng/mL, TCA (Trycyclic Antidepressants): 300 ng/mL Performed By: #### Calvin TABOR, ERUR ####[facility] Oflpjzcoyb[address] [place] [address]Dr. Donna Malone DRUG CUT HEADER DRUG CLASS TEST SYST EM CUT-OFF CONCENTRATIONS ARE FOLLOWS: Normal [facility] Comment on above: Performed By: #### Calvin TABOR, ERUR ####[facility] Hbzalraaew6047 [place] [address]Dr. Donna Malone mAMP Negative Normal NEGATIVE [facility] Comment on above: Performed By: #### Calvin TABOR, ERUR ####[facility] Pjrsxkocyw84[address] [place], [place] [address]Dr. Donna Malone MTD Negative Normal NEGATIVE [facility] Comment on above: Performed By: #### Calvin TABOR, ERUR ####[facility] Kzzgccrqqk6868[address] [place], [place] [address]Dr. Donna Malone OPI Negative Normal NEGATIVE [facility] Comment on above: Performed By: #### Calvin TABOR, ERUR ####[facility] Kdzzehfogg40[address] [place], [place] [address]Dr. Rubyyvan Malone OXY Negative Normal NEGATIVE [facility] Comment on above: Performed By: #### Calvin TABOR, ERUR ####[facility] Zmawfraczo8788 [place] [address]Dr. Donna Malone PCP Negative Normal NEGATIVE [facility] Comment on above: Performed By: #### Calvin TAOBR, ERUR ####[facility] Ytthwyjcpg7057 [place] [address]Dr. Donna Malone PPX Negative Normal NEGATIVE [facility] Comment on above: Performed By: #### Calvin TABOR, ERUR ####[facility] Vwjqfscijo39[address] [place], [place] [address]Dr. Donna Malone TCA Positive Abnormal NEGATIVE [facility] Comment on above: Performed By: #### Calvin TABOR, ERUR ####[facility] Kcauvhmjxl7[address] [place], [place] [address]Dr. Donna Malone THC Negative Normal NEGATIVE [facility] Comment on above: Performed By: #### Calvin TABOR, ERUR ####[facility] Prdstjvuqj0438[address] [place], [place] [address]Dr. Donna Malone ER URINE PROFILEon 2 Bilirubin Ql (U) Negative Normal NEGATIVE [facility] Comment on above: Performed By: #### Calvin TABOR, ERUR ####[facility] Kxjcfzwuzg5718[address] [place], [place] [address]Dr. Donna Faisal Clarity (U) CLEAR Normal CLEAR [facility] Comment on above: Performed By: #### Calvin TABOR, ERUR ####[facility] Pnvcsxxvib8398[address] [place], [place] [address]Dr. Donna Faisal Color (U) YELLOW Normal YELLOW [facility] Comment on above: Performed By: #### Calvin TABOR, ERUR ####[facility] Paxmapgyzj2744[address] [place], [place] [address]Dr. Donna Malone ERUAHD A micrscopic examina tion will be performed if indicated. Normal [facility] Comment on above: Performed By: #### Calvin TABOR, ERUR ####[facility] Svoitbftot9969[address] [place], [place] [address]Dr. Donna Faisal Glucose Ql (U) Negative Normal NEGATIVE [facility] Comment on above: Performed By: #### Calvin TABOR, ERUR ####[facility] Ndkictapos3745[address] [place], [place] [address]Dr. Donna Malone Hemoglobin Ql (U) Negative Normal NEGATIVE [facility] Comment on above: Performed By: #### Calvin TABOR, ERUR ####[facility] Tgphspvzup1723[address] [place], [place] [address]Dr. Donna Malone Ketones Ql (U) 15 mg/dl Abnormal NEGATIVE [facility] Comment on above: Performed By: #### Calvin TABOR, ERUR ####[facility] Ydrveykmwd6229[address] [place], [place] [address]Dr. Donna Malone LEUKOCYTES Negative Normal NEGATIVE [facility] Comment on above: Performed By: #### D SHARONA, ERUR ####[facility] Cwmkyemfxy1901 [place] [address]Dr. Donna Malone Nitrite Ql (U) Negative Normal NEGATIVE [facility] Comment on above: Performed By: #### D SHARONA, ERUR ####[facility] Peragverrc8464 [place] [address]Dr. Donna Malone pH (U) 6.0 [pH] Normal 5-9 [facility] Comment on above: Performed By: #### Calvin TBAOR, ERUR ####[facility] Noiacudsgm1122 [place] [address]Dr. Donna Malone SPEC GRAVITY >=1.030 Abnormal 1.005-<=1. 025 [facility] Comment on above: Performed By: #### Calvin TABOR, ERUR ####[facility] Iqfkoivxjh9[address] [place], [place] [address]Dr. Donna Malone UA PROTEIN TRACE Normal NEGATIVE/ TRACE [facility] Comment on above: Performed By: #### Calvin TABOR, ERUR ####[facility] Ydihwckjok624[address] [place], [place] [address]Dr. Donna Malone UR MICRO IND NOT INDICATED Normal [facility] Comment on above: Performed By: #### Calvin TABOR, ERUR ####[facility] Wddmhyqhfe[address] [place], [place] [address]Dr. Donna Malone Urobilinogen Qn (U) 0.2 {Jermain'U}/dL Normal 0.2 - 1. 0 [facility] Comment on above: Performed By: #### Calvin TABOR, ERUR ####[facility] Vcnnedvkbd4[address] [place], [place] [address]Dr. Donna Malone ETHANOL (BLD ALC)on 07-15-20 ALC NOTE NOTE: 80 mg/dl is th e legal limit for a blood alcohol level Normal [facility] Comment on above: Performed By: #### E TH ####[facility] Knkhccppgy69[address] [place], [place] [address]Dr. Donna Malone Ethanol [Mass/Vol] mg/dL Normal [facility] Comment on above: Performed By: #### E TH ####[facility] Fjufcaftom[address] [place] [address]Dr. Donna Malone LACTATE/LACTIC ACIDon 2021 Lactate [Moles/Vol] 1.3 mmol/L Normal 0.4-1.9 [facility] Comment on above: Performed By: #### L ACT ####[facility] Sotsaeernr[address] [place] [address]Dr. Donna Malone PROF 14(COMP METB)on 022 Albumin [Mass/Vol] 2.9 g/dL Critically low 3.4-5.0 [facility] Comment on above: Performed By: #### B FLY RAIL OPERATOR, CMP, CMADM ####[facility] Oacaktoxgn[address] [place] [address]Dr. Donna Malone Albumin/Globulin [Mass ratio] 0.9 {ratio} Normal [facility] Comment on above: Performed By: #### B FLY RAIL OPERATOR, CMP, CMADM ####[facility] Onqemrjbii44[address] [place] [address]Dr. Donna Malone ALP [Catalytic activity/Vol] 37 U/L Critically low 46-116 [facility] Comment on above: Performed By: #### B FLY RAIL OPERATOR, CMP, CMADM ####[facility] Auinabrxmv4[address] [place] [address]Dr. Donna Malone ALT [Catalytic activity/Vol] 10 U/L Critically low 16-63 [facility] Comment on above: Performed By: #### B FLY RAIL OPERATOR, CMP, CMADM ####[facility] [address] [place] [address]Dr. Donna Malone Anion gap [Moles/Vol] 8.0 mmol/L Normal [facility] Comment on above: Performed By: #### B FLY RAIL OPERATOR, CMP, CMADM ####[facility] Uiqwussxya[address] [place] [address]Dr. Donna Malone AST [Catalytic activity/Vol] 12 U/L Critically low 15-37 [facility] Comment on above: Performed By: #### B FLY RAIL OPERATOR, CMP, CMADM ####[facility] Yvpogklxke[address] [place] [id number]. Donna Malone Bilirubin [Mass/Vol] 0.3 mg/dL Normal 0.2-1.0 [facility] Comment on above: Performed By: #### B FLY RAIL OPERATOR, CMP, CMADM ####[facility] [address]zsty[address] [place] [address]Dr. Donna Malone Calcium [Mass/Vol] 7.9 mg/dL Critically low 8.5-10.1 Th e [facility] Comment on above: Performed By: #### B FLY RAIL OPERATOR, CMP, CMADM ####[facility] Olgficfgvx[address] [place] [address]Dr. Donna Malone Chloride [Moles/Vol] 107 mmol/L Normal 98-107 [facility] Comment on above: Performed By: #### B FLY RAIL OPERATOR, CMP, CMADM ####[facility] Rkehswqhau[address] [place] [address]Dr. Donna Malone CO2 [Moles/Vol] 27.1 mmol/L Normal 21.0-32.0 [facility] Comment on above: Performed By: #### B FLY RAIL OPERATOR, CMP, CMADM ####[facility] Rldlghnrlh[address] [place] [address]Dr. Donna Malone Creatinine [Mass/Vol] 0.99 mg/dL Normal 0.70-1.30 [facility] Comment on above: Performed By: #### B FLY RAIL OPERATOR, CMP, CMADM ####[facility] Xsnbzionga[address] [place] [address]Dr. Donna Malone EGFR-AF MOLDOVAN >60 Normal >=60 [facility] Comment on above: Performed By: #### B FLY RAIL OPERATOR, CMP, CMADM ####[facility] Ovszmdoyro64[address] [place] [address]Dr. Donna Malone EGFR-NON AF MOLDOVAN >60 Normal >=60 [facility] Comment on above: Performed By: #### B FLY RAIL OPERATOR, CMP, CMADM ####[facility] Tapynkjbdn[address] [place] [address]Dr. Donna Malone Globulin (S) [Mass/Vol] 3.3 g/dL Normal [facility] Comment on above: Performed By: #### B FLY RAIL OPERATOR, CMP, CMADM ####[facility] Ypaqvvshst[address] [place] [address]Dr. Donna Malone Glucose [Mass/Vol] 101 mg/dL Normal 74-106 [facility] Comment on above: Performed By: #### B FLY RAIL OPERATOR, CMP, CMADM ####[facility] Adidzhyyxt[address] [place] [address]Dr. Donna Malone Potassium [Moles/Vol] 4.1 mmol/L Normal 3.5-5.1 [facility] Comment on above: Performed By: #### B FLY RAIL OPERATOR, CMP, CMADM ####[facility] Mupyiyylkx[address] [place] [address]Dr. Donna Malone Protein [Mass/Vol] 6.2 g/dL Critically low 6.4-8.2 [facility] Comment on above: Performed By: #### B FLY RAIL OPERATOR, CMP, CMADM ####[facility] Swifwxjttk[address] [place] [address]Dr. Donna Malone Sodium [Moles/Vol] 138 mmol/L Normal 136-145 [facility] Comment on above: Performed By: #### B FLY RAIL OPERATOR, CMP, CMADM ####[facility] Pezecsmkgg75[address] [place] [address]Dr. Donna Malone Urea nitrogen [Mass/Vol] 16.0 mg/dL Normal 7.0-18.0 [facility] Comment on above: Performed By: #### B FLY RAIL OPERATOR, CMP, CMADM ####[facility] Mwoajiiyrq[address] [place] [address]Dr. Donna Malone Urea nitrogen/Creatinine [Mass ratio] 16.2 mg/mg Normal [facility] Comment on above: Performed By: #### B FLY RAIL OPERATOR, CMP, CMADM ####[facility] Ccgazwrvor[address] [place] [address]Dr. Donna Malone PROTIMEon 07-15-2022 INR Coag (PPP) [Relative time] 1.06 {INR} Normal [facility] Comment on above: Performed By: #### P T, PTT ####[facility] Zngonpgnkd59[address] [place] [id number]. Donna Malone INR GUIDELINES SEE BELOW Normal [facility] Comment on above: Result Comment: FLORESITA RED INR: 2.0 - 3.0 CONDITIONS NOT LISTED BELOW 2.5 - 3.5 FOR PROSTHETIC HEART VALVE REPLACEMENT 2.5 - 3.5 RECURRENT THROMBOSIS Performed By: #### P T, PTT ####[facility] Jyyityixuc9[address] [place], [place] [address]Dr. Donna Malone PT Coag (PPP) [Time] 11.4 s Normal 9.0-11.6 [facility] Comment on above: Performed By: #### P T, PTT ####[facility] Vhketyvpdu2417[address] [place], [place] [address]Dr. Donna Malnoe PTTon 07-15-2022 aPTT Coag (Bld) [Time] 30.8 s Normal 22.3-36.2 [facility] Comment on above: Performed By: #### P T, PTT ####[facility] Ebtjgvwsov4[address] [place], [place] [address]Dr. Donna Malone XR CHEST 1 Von 07-15-2022 XR CHEST 1 V Normal [facility] CULTURE URINEon 06-24-2022 CULTURE URINE Normal [facility] Comment on above: Performed By: #### U RCX ####[facility] Kshnjakoch17[address] [place], [place] [address]Dr. Donna Malone UA RANDOM W/MICROSCOPICon BACTERIA NONE SEEN Normal NONE SEEN [facility] Comment on above: Performed By: #### U AMIC ####[facility] Orxptetrcx6174[address] [place], [place] [address]Dr. Donna Malone Bilirubin Ql (U) Negative Normal NEGATIVE [facility] Comment on above: Performed By: #### U AMIC ####[facility] Qzbksupdiw5135[address] [place], [place] [address]Dr. Donna Malone CAST NONE SEEN Normal NONE SEEN [facility] Comment on above: Performed By: #### U AMIC ####[facility] Xyhhktdexr495[address] [place], [place] [address]Dr. Donna Malone Clarity (U) CLEAR Normal CLEAR [facility] Comment on above: Performed By: #### U AMIC ####[facility] Ybgckqjkzs5[address] [place] [address]Dr. Donna Malone Color (U) DK. YELLOW Normal YELLOW [facility] Comment on above: Performed By: #### U AMIC ####[facility] Wxfyxaxrvy44[address] [place] [address]Dr. Donna Malone Crystals LM Nom (Urine sed) NONE SEEN Normal NONE SEEN [facility] Comment on above: Performed By: #### U AMIC ####[facility] Grwiokksdu138[address] [place], [place] [address]Dr. Donna Malone Epithelial cells LM Ql (Urine sed) NONE SEEN Normal NONE SEEN /RARE [facility] Comment on above: Performed By: #### U AMIC ####[facility] Mtovssaztm7147[address] [place], [place] [address]Dr. Donna Malone Glucose Ql (U) 100 mg/dl Abnormal NEGATIVE [facility] Comment on above: Performed By: #### U AMIC ####[facility] Txupcybjen893266 [address] [place], [place] [address]Dr. Donna Malone Hemoglobin Ql (U) Negative Normal NEGATIVE [facility] Comment on above: Performed By: #### U AMIC ####[facility] Vxnbjrxphj832[address] [place], [place] [address]Dr. Donna Malone Ketones Ql (U) TRACE Abnormal NEGATIVE [facility] Comment on above: Performed By: #### U AMIC ####[facility] Tgiuxqnmba62[address] [place] [address]Dr. Donna Malone LEUKOCYTES Negative Normal NEGATIVE [facility] Comment on above: Performed By: #### U AMIC ####[facility] Lljrdlzkdl9714[address] [place], [place] [address]Dr. Donna Malone MUCOUS SMALL Abnormal NONE SEEN [facility] Comment on above: Performed By: #### U AMIC ####[facility] Jkbfdooqbm38[address] [place], [place] [address]Dr. Donna Malone Nitrite Ql (U) Negative Normal NEGATIVE [facility] Comment on above: Performed By: #### U AMIC ####[facility] Bhdyovcazg28[address] [place] [address]Dr. Donna Malone pH (U) 6.0 [pH] Normal 5-9 [facility] Comment on above: Performed By: #### U AMIC ####[facility] Vnvnzmcrrx5[address] [place] [address]Dr. Donna Malone RBC NONE SEEN Abnormal 0-2 [facility] Comment on above: Performed By: #### U AMIC ####[facility] Nerxydlltm9[address] [place] [address]Dr. Donna Malone SPEC GRAVITY 1.030 Abnormal 1.005-<=1. 025 [facility] Comment on above: Performed By: #### U AMIC ####[facility] Uxkitsfbpc840[address] [place], [place] [address]Dr. Donna Malone UA PROTEIN Negative Normal NEGATIVE/ TRACE [facility] Comment on above: Performed By: #### U AMIC ####[facility] Zannswccfz4[address] [place], [place] [address]Dr. Donna Malone Urobilinogen Qn (U) 0.2 {Jermain'U}/dL Normal 0.2 - 1. 0 [facility] Comment on above: Performed By: #### U AMIC ####[facility] Fapucjspzi49[address] [place], [place] [address]Dr. Donna Malone WBC 2-5 Abnormal NONE SEEN [facility] Comment on above: Performed By: #### U AMIC ####[facility] Hkomjfvzti77[address] [place], [place] [address]Dr. Donna Malone COMPLIANCE DRUG SCREENon PDF . Normal [facility] Comment on above: Performed By: #### D SDOALC ####[facility] Gouivurlld8[address] [place], [place] [address]Dr. Donna Malone Summary FINAL Normal [facility] Comment on above: Result Comment: =====TOXASSURE COMP DRUG ANALYSIS,UR Test Result Flag UnitsDrug Present not Declared for Prescription Verification Lorazepam 776 UNEXPECTED ng/mg creat Source of lorazepam is a scheduled prescription medication. Codeine 668 UNEXPECTED ng/mg creat Morphine 71 UNEXPECTED ng/mg creat Normorphine 62 UNEXPECTED ng/mg creat Norcodeine 101 UNEXPECTED ng/mg creat Sources of codeine include scheduled prescription medications; morphine is an expected metabolite of codeine. Other sources of morphine include scheduled prescription medications or as a metabolite of heroin. Normorphine is an expected metabolite of morphine. Norcodeine is an expected metabolite of codeine. Gabapentin PRESENT UNEXPECTED Lamotrigine PRESENT UNEXPECTED Baclofen PRESENT UNEXPECTED Amitriptyline PRESENT UNEXPECTED Nortriptyline PRESENT UNEXPECTED Nortriptyline may be administered as a prescription drug; it is also an expected metabolite of amitriptyline. Bupropion PRESENT UNEXPECTED Hydroxybupropion PRESENT UNEXPECTED Hydroxybupropion is an expected metabolite of bupropion. Citalopram PRESENT UNEXPECTED Desmethylcitalopram PRESENT UNEXPECTED Desmethylcitalopram is an expected metabolite of citalopram or the enantiomeric form, escitalopram. Doxepin PRESENT UNEXPECTED Desmethyldoxepin PRESENT UNEXPECTED Desmethyldoxepin is an expected metabolite of doxepin. Trazodone PRESENT UNEXPECTED 1,3 chlorophenyl piperazine PRESENT UNEXPECTED 1,3-chlorophenyl piperazine is an expected metabolite of trazodone. Acetaminophen PRESENT UNEXPECTEDDrug Absent but Declared for Prescription Verification Tramadol Not Detected UNEXPECTED ng/mg creat Test Result Flag Units Ref Range Creatinine 182 mg/dL >=20 =========Declared Medications: The flagging and interpretation on this report are based on the following declared medications. Unexpected results may arise from inaccuracies in the declared medications. Note: The testing scope of this panel includes these medications: Tramadol For clinical consultation, please call . Performed By: #### D SDOALC ####[facility] Kmggshucdv47[address] [place], [place] [address]Dr. Donna Malone CBC AUTO DIFFon 05-16-2022 BASO # 0.0 103/ul Normal 0.0-0.1 [facility] Comment on above: Performed By: #### C BC ####[facility] Fvzyjgqyga5[address] [place], [place] [address]DrElizabeth Malone Basophils/100 WBC (Bld) 0.4 % Normal 0.2-2.0 [facility] Comment on above: Performed By: #### C BC ####[facility] Qmpppwbqih100[address] [place], [place] [address]DrElizabeth Malone EO # 0.1 103/ul Normal 0.0-0.7 [facility] Comment on above: Performed By: #### C BC ####[facility] Qhgldndcqj23[address] [place], [place] [address]Dr. Donna Malone Eosinophils/100 WBC (Bld) 0.9 % Normal 0.9-7.0 [facility] Comment on above: Performed By: #### C BC ####[facility] Gymmnrzuxf[address] [place] [address]Dr. Donna Malone Erythrocyte distribution width (RBC) [Ratio] 14.9 % Normal 11.0-15.0 [facility] Comment on above: Performed By: #### C BC ####[facility] Lwjlbclahk1825[address] [place], [place] [address]Dr. Donna Malone Hematocrit (Bld) [Volume fraction] 41.0 % Critically low 42.0-54.0 [facility] Comment on above: Performed By: #### C BC ####[facility] Dbpnemhbmd38[address] [place], [place] [address]Dr. Donna Malone Hemoglobin (Bld) [Mass/Vol] 13.3 g/dL Critically low 14.0-18.0 [facility] Comment on above: Performed By: #### C BC ####[facility] Ioybvzblqf6[address] [place], [place] [address]Dr. Donna Malone IG # 0.03 10e3/ul Normal 0.00-0.03 [facility] Comment on above: Performed By: #### C BC ####[facility] Uryqqnjzyy805166 [address] [place], [place] [address]Dr. Donna Malone IG % 0.3 % Normal 0.0-0.5 [facility] Comment on above: Performed By: #### C BC ####[facility] Xjhnfbvlpt659[address] [place], [place] [address]Dr. Donna Malone LYMPH # 1.4 103/ul Normal 1.2-3.8 [facility] Comment on above: Performed By: #### C BC ####[facility] Myyipnfcjb1059[address] [place], [place] [address]Dr. Donna Malone Lymphocytes/100 WBC (Bld) 15.3 % Critically low 20.5-60.0 [facility] Comment on above: Performed By: #### C BC ####[facility] Egxxifydvi[address] [place] [address]Dr. Rubyyvan Malone MANUAL DIFF REQ NO Normal [facility] Comment on above: Performed By: #### C BC ####[facility] Libqhubdrp7[address] [place] [address]Dr. Donna Faisal MCH (RBC) [Entitic mass] 29.4 pg Normal 25.9-34.0 [facility] Comment on above: Performed By: #### C BC ####[facility] Fdposqabbo0709[address] [place], [place] [address]Dr. Donna Faisal MCHC (RBC) [Mass/Vol] 32.4 g/dL Normal 29.9-35.2 [facility] Comment on above: Performed By: #### C BC ####[facility] Nnuukpxxec73[address] [place], [place] [address]Dr. Donna Malone MCV (RBC) [Entitic vol] 90.5 fL Normal 80.0-94.0 [facility] Comment on above: Performed By: #### C BC ####[facility] Zaokiyiimk0917[address] [place], [place] [address]Dr. Donna Malone MONO # 0.8 103/ul Normal 0.3-0.8 [facility] Comment on above: Performed By: #### C BC ####[facility] Lsybwyscww5[address] [place], [place] [address]Dr. Donna Malone Monocytes/100 WBC (Bld) 8.7 % Normal 1.7-12.0 [facility] Comment on above: Performed By: #### C BC ####[facility] Ticjlttbwy4077[address] [place], [place] [address]DrElizabeth Malone NEUT # 6.9 103/ul Critically high 1.4-6.5 [facility] Comment on above: Performed By: #### C BC ####[facility] Jqttspjuyw6880[address] [place], [place] [address]Dr. Donna Malone Neutrophils/100 WBC (Bld) 74.4 % Normal 43.0-75.0 [facility] Comment on above: Performed By: #### C BC ####[facility] Pgreaztaom738[address] [place], [place] [address]Dr. Donna Malone Platelet mean volume (Bld) [Entitic vol] 11.9 fL Normal 9.5-13.5 [facility] Comment on above: Performed By: #### C BC ####[facility] Ifmthwcrsr[address] [place] [address]Dr. Donna Malone PLT 174 103/ul Normal 150-450 [facility] Comment on above: Performed By: #### C BC ####[facility] Cpxldgcbkq7676 [place] [address]Dr. Donna Malone RBC 4.53 106/ul Critically low 4.70-6.10 [facility] Comment on above: Performed By: #### C BC ####[facility] Fqupybdyxf75[address] [place] [address]Dr. Donna Malone WBC 9.2 103/ul Normal 4.0-11.0 [facility] Comment on above: Performed By: #### C BC ####[facility] Nkmphysbfs5039 [place] [address]DrElizabeth Malone PROF 14(COMP METB)on 022 Albumin [Mass/Vol] 3.0 g/dL Critically low 3.4-5.0 [facility] Comment on above: Performed By: #### C MP ####[facility] Hyjgwzadaz[address] [place] [address]Dr. Donna Malone Albumin/Globulin [Mass ratio] 0.8 {ratio} Normal [facility] Comment on above: Performed By: #### C MP ####[facility] Ofxuiybibz101[address] [place] [address]DrElizabeth Malone ALP [Catalytic activity/Vol] 39 U/L Critically low 46-116 [facility] Comment on above: Performed By: #### C MP ####[facility] Vxtcfvvoes230[address] [place], [place] [address]DrElizabeth Malone ALT [Catalytic activity/Vol] 16 U/L Normal 16-63 [facility] Comment on above: Performed By: #### C MP ####[facility] Oaioeiybwo8399[address] [place], [place] [address]Dr. Donna Malone Anion gap [Moles/Vol] 10.8 mmol/L Normal Th e [facility] Comment on above: Performed By: #### C MP ####[facility] Rnnvbsabhf8351 [place] [address]Dr. Donna Malone AST [Catalytic activity/Vol] 9 U/L Critically low 15-37 [facility] Comment on above: Performed By: #### C MP ####[facility] Rnluqhpbxu112[address] [place], [place] [address]Dr. Donna Malone Bilirubin [Mass/Vol] 0.3 mg/dL Normal 0.2-1.0 [facility] Comment on above: Performed By: #### C MP ####[facility] Zgefkvukki3485[address] [place], [place] [address]Dr. Donna Malone Calcium [Mass/Vol] 8.8 mg/dL Normal 8.5-10.1 [facility] Comment on above: Performed By: #### C MP ####[facility] Wyirrneqhk647[address] [place], [place] [address]Dr. Donna Malone Chloride [Moles/Vol] 105 mmol/L Normal 98-107 [facility] Comment on above: Performed By: #### C MP ####[facility] Bvksbtxavj150[address] [place], [place] [address]Dr. Donna Malone CO2 [Moles/Vol] 26.7 mmol/L Normal 21.0-32.0 [facility] Comment on above: Performed By: #### C MP ####[facility] Szinmvfbud1970[address] [place], [place] [address]Dr. Donna Malone Creatinine [Mass/Vol] 0.97 mg/dL Normal 0.70-1.30 [facility] Comment on above: Performed By: #### C MP ####[facility] Mmnqfmilil9727[address] [place], [place] [address]Dr. Donna Faisal EGFR-AF MOLDOVAN >60 Normal >=60 [facility] Comment on above: Performed By: #### C MP ####[facility] Skyhjtdahy044[address] [place], [place] [address]Dr. Rubyyvan Faisal EGFR-NON AF MOLDOVAN >60 Normal >=60 [facility] Comment on above: Performed By: #### C MP ####[facility] Vkhhafaorc[address] [place] [address]Dr. Donna Malone Globulin (S) [Mass/Vol] 3.7 g/dL Normal [facility] Comment on above: Performed By: #### C MP ####[facility] Qdruiajffk36[address] [place] [address]Dr. Donna Malone Glucose [Mass/Vol] 98 mg/dL Normal 74-106 [facility] Comment on above: Performed By: #### C MP ####[facility] Zykuwkwgrr89[address] [place] [address]Dr. Donna Malone Potassium [Moles/Vol] 3.5 mmol/L Normal 3.5-5.1 [facility] Comment on above: Performed By: #### C MP ####[facility] Yehcdmifgj01[address] [place], [place] [address]Dr. Donna Malone Protein [Mass/Vol] 6.7 g/dL Normal 6.4-8.2 [facility] Comment on above: Performed By: #### C MP ####[facility] Ueccbbdvec3728[address] [place], [place] [address]Dr. Donna Malone Sodium [Moles/Vol] 139 mmol/L Normal 136-145 [facility] Comment on above: Performed By: #### C MP ####[facility] Msntnpajwh2917[address] [place], [place] [address]Dr. Donna Malone Urea nitrogen [Mass/Vol] 11.0 mg/dL Normal 7.0-18.0 [facility] Comment on above: Performed By: #### C MP ####[facility] Cejosbfkqe4633[address] [place], [place] [address]Dr. Donna Malone Urea nitrogen/Creatinine [Mass ratio] 11.3 mg/mg Normal [facility] Comment on above: Performed By: #### C MP ####[facility] Ogydwqymkt8047[address] [place], [place] [address]Dr. Donna Malone T3, TOTAL (TRIIODOTHYRONINE) on 05-16-2022 T3, TOTAL 86 ng/dL Normal 71-180 [facility] Comment on above: Performed By: #### T 3TOTAL ####[facility] Bmdqywmxus4[address] [place], [place] [address]Dr. Donna Malone T4 LABCORPon 05-16-2022 T4 [Mass/Vol] 6.4 ug/dL Normal 4.5-12.0 [facility] Comment on above: Performed By: #### T 4LC ####[facility] Ihqadaykbv2510[address] [place], [place] [address]Dr. Donna Malone CBC AUTO DIFFon 05-15-2022 BASO # 0.0 103/ul Normal 0.0-0.1 [facility] Comment on above: Performed By: #### C BC ####[facility] Ltivrdwmpw2274[address] [place], [place] [address]Dr. Donna Malone Basophils/100 WBC (Bld) 0.3 % Normal 0.2-2.0 [facility] Comment on above: Performed By: #### C BC ####[facility] Gzmoayjlxx101[address] [place], [place] [address]Dr. Donna Malone EO # 0.2 103/ul Normal 0.0-0.7 [facility] Comment on above: Performed By: #### C BC ####[facility] Ksnmyozagy12[address] [place], [place] [address]Dr. Donna Malone Eosinophils/100 WBC (Bld) 2.0 % Normal 0.9-7.0 [facility] Comment on above: Performed By: #### C BC ####[facility] Cfnowhihpf268166 [address] [place], [place] [address]Dr. Donna Malone Erythrocyte distribution width (RBC) [Ratio] 14.6 % Normal 11.0-15.0 [facility] Comment on above: Performed By: #### C BC ####[facility] Agrwkkfqmh5900[address] [place], [place] [address]Dr. Donna Malone Hematocrit (Bld) [Volume fraction] 38.2 % Critically low 42.0-54.0 [facility] Comment on above: Performed By: #### C BC ####[facility] Nnexvfbkzw16[address] [place] [address]Dr. Donna Malone Hemoglobin (Bld) [Mass/Vol] 12.7 g/dL Critically low 14.0-18.0 [facility] Comment on above: Performed By: #### C BC ####[facility] Rlutezuqae[address] [place] [address]Dr. Donna Malone IG # 0.04 10e3/ul Critically high 0.00-0.03 [facility] Comment on above: Performed By: #### C BC ####[facility] Tlintaxjbx40[address] [place] [address]Dr. Donna Malone IG % 0.4 % Normal 0.0-0.5 [facility] Comment on above: Performed By: #### C BC ####[facility] Acwbeqfkre419[address] [place], [place] [address]Dr. Donna Malone LYMPH # 1.4 103/ul Normal 1.2-3.8 [facility] Comment on above: Performed By: #### C BC ####[facility] Yrtdggsooc24[address] [place], [place] [address]Dr. Donna Malone Lymphocytes/100 WBC (Bld) 14.9 % Critically low 20.5-60.0 [facility] Comment on above: Performed By: #### C BC ####[facility] Ppqofocqje6426[address] [place], [place] [address]Dr. Donna Malone MANUAL DIFF REQ NO Normal [facility] Comment on above: Performed By: #### C BC ####[facility] Qyufddisyd34[address] [place], [place] [address]Dr. Donna Malone MCH (RBC) [Entitic mass] 30.0 pg Normal 25.9-34.0 [facility] Comment on above: Performed By: #### C BC ####[facility] Aptxbciyee399[address] [place], [place] [address]Dr. Donna Malone MCHC (RBC) [Mass/Vol] 33.2 g/dL Normal 29.9-35.2 [facility] Comment on above: Performed By: #### C BC ####[facility] Syexuchhaw[address] [place] [id number]. Donna Malone MCV (RBC) [Entitic vol] 90.3 fL Normal 80.0-94.0 [facility] Comment on above: Performed By: #### C BC ####[facility] Probbrnchz18[address] [place] [id number]. Donna Malone MONO # 0.8 103/ul Normal 0.3-0.8 [facility] Comment on above: Performed By: #### C BC ####[facility] Jytcdwffbj7[address] [place] [address]Dr. Donna Malone Monocytes/100 WBC (Bld) 8.5 % Normal 1.7-12.0 [facility] Comment on above: Performed By: #### C BC ####[facility] Zmpqnxlrom1674 [place] [address]Dr. Donna Malone NEUT # 6.8 103/ul Critically high 1.4-6.5 [facility] Comment on above: Performed By: #### C BC ####[facility] Jimgplxscd4[address] [place] [address]Dr. Donna Malone Neutrophils/100 WBC (Bld) 73.9 % Normal 43.0-75.0 [facility] Comment on above: Performed By: #### C BC ####[facility] Snbqcnxbtb4865 [place] [id number]. Donna Malone Platelet mean volume (Bld) [Entitic vol] 12.0 fL Normal 9.5-13.5 [facility] Comment on above: Performed By: #### C BC ####[facility] Cexqezwyig19[address] [place] [id number]. Donna Malone PLT 154 103/ul Normal 150-450 [facility] Comment on above: Performed By: #### C BC ####[facility] Vwsporlorq27[address] [place] [id number]. Donna Malone RBC 4.23 106/ul Critically low 4.70-6.10 The [facility] [facility] Comment on above: Performed By: #### C BC ####[facility] [address] [place] [address]Dr. Donna Malone WBC 9.2 103/ul Normal 4.0-11.0 [facility] Comment on above: Performed By: #### C BC ####[facility] Rvycupvpjg037[address] [place], [place] [address]Dr. Donna Malone PROF 14(COMP METB)on 022 Albumin [Mass/Vol] 2.9 g/dL Critically low 3.4-5.0 Th [facility] Comment on above: Performed By: #### C MP ####[facility] Qvrydsnpki2050[address] [place], [place] [address]Dr. Donna Malone Albumin/Globulin [Mass ratio] 0.9 {ratio} Normal [facility] Comment on above: Performed By: #### C MP ####[facility] Wolpsmmpxv660566 [address] [place], [place] [address]Dr. Donna Malone ALP [Catalytic activity/Vol] 41 U/L Critically low 46-116 [facility] Comment on above: Performed By: #### C MP ####[facility] Mhisutvzpq737366 [address] [place], [place] [address]Dr. Donna Malone ALT [Catalytic activity/Vol] 12 U/L Critically low 16-63 [facility] Comment on above: Performed By: #### C MP ####[facility] Nsgvqiiawt230366 [address] [place], [place] [address]Dr. Donna Malone Anion gap [Moles/Vol] 5.6 mmol/L Normal [facility] Comment on above: Performed By: #### C MP ####[facility] Wemugjlnxp237666 [address] [place], [place] [address]Dr. Donna Malone AST [Catalytic activity/Vol] 8 U/L Critically low 15-37 [facility] Comment on above: Performed By: #### C MP ####[facility] Prggsbqwgf789466 [address] [place], [place] [address]Dr. Donna Malone Bilirubin [Mass/Vol] 0.5 mg/dL Normal 0.2-1.0 [facility] Comment on above: Performed By: #### C MP ####[facility] Gtiggiekxn[address] [place] [address]Dr. Donna Malone Calcium [Mass/Vol] 8.3 mg/dL Critically low 8.5-10.1 Th e [facility] Comment on above: Performed By: #### C MP ####[facility] Dpvmqmqzsp[address] [place] [address]Dr. Donna Malone Chloride [Moles/Vol] 106 mmol/L Normal 98-107 [facility] Comment on above: Performed By: #### C MP ####[facility] Ohwlqyfjzo764566 [address] [place], [place] [address]Dr. Donna Malone CO2 [Moles/Vol] 23.1 mmol/L Normal 21.0-32.0 [facility] Comment on above: Performed By: #### C MP ####[facility] Ahuoinmvin968166 [address] [place], [place] [address]Dr. Donna Malone Creatinine [Mass/Vol] 0.82 mg/dL Normal 0.70-1.30 [facility] Comment on above: Performed By: #### C MP ####[facility] Brrmqfvjew186966 [address] [place], [place] [address]Dr. Donna Malone EGFR-AF MOLDOVAN >60 Normal >=60 [facility] Comment on above: Performed By: #### C MP ####[facility] Pvybmeunho753866 [address] [place], [place] [address]Dr. Donna Malone EGFR-NON AF MOLDOVAN >60 Normal >=60 [facility] Comment on above: Performed By: #### C MP ####[facility] Djafxsuxeu857466 [address] [place], [place] [address]Dr. Donna Malone Globulin (S) [Mass/Vol] 3.2 g/dL Normal [facility] Comment on above: Performed By: #### C MP ####[facility] Suumxzxgir043466 [address] [place], [place] [address]Dr. Donna Faisal Glucose [Mass/Vol] 81 mg/dL Normal 74-106 [facility] Comment on above: Performed By: #### C MP ####[facility] Jqtzlaawps908066 [address] [place], [place] [address]Dr. Donna Malone Potassium [Moles/Vol] 3.7 mmol/L Normal 3.5-5.1 [facility] Comment on above: Performed By: #### C MP ####[facility] Hrjirhdxwn732066 [address] [place], [place] [address]Dr. Donna Malone Protein [Mass/Vol] 6.1 g/dL Critically low 6.4-8.2 [facility] Comment on above: Performed By: #### C MP ####[facility] Bnhgujoths015566 [address] [place], [place] [address]Dr. Donna Malone Sodium [Moles/Vol] 131 mmol/L Critically low 136-145 [facility] Comment on above: Performed By: #### C MP ####[facility] Lonraddrrv240366 [address] [place], [place] [address]Dr. Donna Malone Urea nitrogen [Mass/Vol] 17.0 mg/dL Normal 7.0-18.0 [facility] Comment on above: Performed By: #### C MP ####[facility] Bygdfeiyqd450266 [address] [place], [place] [address]Dr. Donna Malone Urea nitrogen/Creatinine [Mass ratio] 20.7 mg/mg Normal [facility] Comment on above: Performed By: #### C MP ####[facility] Kryhnuhudm1009[address] [place], [place] [address]Dr. Donna Malone CBC AUTO DIFFon 05-14-2022 BASO # 0.1 103/ul Normal 0.0-0.1 [facility] Comment on above: Performed By: #### C BC ####[facility] Ylnuxinesu060066 [address] [place], [place] [address]Dr. Donna Malone Basophils/100 WBC (Bld) 0.8 % Normal 0.2-2.0 [facility] Comment on above: Performed By: #### C BC ####[facility] Snievjssux976266 [address] [place], [place] [address]Dr. Donna Malone EO # 0.3 103/ul Normal 0.0-0.7 [facility] Comment on above: Performed By: #### C BC ####[facility] Sawcxiqvli885666 [address] [place], [place] [address]Dr. Donna Malone Eosinophils/100 WBC (Bld) 4.2 % Normal 0.9-7.0 [facility] Comment on above: Performed By: #### C BC ####[facility] J[address]qzafiu[address] [place] [address]Dr. Donna Malone Erythrocyte distribution width (RBC) [Ratio] 14.7 % Normal 11.0-15.0 [facility] Comment on above: Performed By: #### C BC ####[facility] Ntnpcpbilj309666 [address] [place], [place] [address]Dr. Donna Malone Hematocrit (Bld) [Volume fraction] 36.5 % Critically low 42.0-54.0 [facility] Comment on above: Performed By: #### C BC ####[facility] Mbvlmzqqqt298466 [address] [place], [place] [address]Dr. Donna Malone Hemoglobin (Bld) [Mass/Vol] 11.9 g/dL Critically low 14.0-18.0 [facility] Comment on above: Performed By: #### C BC ####[facility] Csztppfnwa186966 [address] [place], [place] [address]Dr. Donna Malone IG # 0.01 10e3/ul Normal 0.00-0.03 [facility] Comment on above: Performed By: #### C BC ####[facility] Zmdmfbfhys385566 [address] [place], [place] [address]Dr. Donna Malone IG % 0.2 % Normal 0.0-0.5 [facility] Comment on above: Performed By: #### C BC ####[facility] Znowykkpmw0449[address] [place], [place] [address]Dr. Donna Malone LYMPH # 2.1 103/ul Normal 1.2-3.8 [facility] Comment on above: Performed By: #### C BC ####[facility] Roqgtftrjt193266 [address] [place], [place] [address]Dr. Donna Malone Lymphocytes/100 WBC (Bld) 32.1 % Normal 20.5-60.0 [facility] Comment on above: Performed By: #### C BC ####[facility] Mcoejwxsmd626[address] [place], [place] [address]Dr. Donna Malone MANUAL DIFF REQ NO Normal [facility] Comment on above: Performed By: #### C BC ####[facility] Znqtrpvbiy[address] [place] [address]Dr. Donna Faisal MCH (RBC) [Entitic mass] 29.7 pg Normal 25.9-34.0 [facility] Comment on above: Performed By: #### C BC ####[facility] Ozfeukwttx629366 [address] [place], [place] [address]Dr. Donna Faisal MCHC (RBC) [Mass/Vol] 32.6 g/dL Normal 29.9-35.2 [facility] Comment on above: Performed By: #### C BC ####[facility] Hbgflkfigx274966 [address] [place], [place] [address]Dr. Donna Malone MCV (RBC) [Entitic vol] 91.0 fL Normal 80.0-94.0 [facility] Comment on above: Performed By: #### C BC ####[facility] Qgjcvoyfei376366 [address] [place], [place] [address]Dr. Donna Malone MONO # 0.5 103/ul Normal 0.3-0.8 [facility] Comment on above: Performed By: #### C BC ####[facility] Igiwxcvjjn302666 [address] [place], [place] [address]Dr. Donna Malone Monocytes/100 WBC (Bld) 8.1 % Normal 1.7-12.0 [facility] Comment on above: Performed By: #### C BC ####[facility] Cfxpfdsora589[address] [place], [place] [address]DrElizabeth Malone NEUT # 3.5 103/ul Normal 1.4-6.5 [facility] Comment on above: Performed By: #### C BC ####[facility] Gdlnnfsirf466366 [address] [place], [place] [address]DrElizabeth Malone Neutrophils/100 WBC (Bld) 54.6 % Normal 43.0-75.0 [facility] Comment on above: Performed By: #### C BC ####[facility] Oqsiikjlii161366 [address] [place], [place] [address]Dr. Donna Malone Platelet mean volume (Bld) [Entitic vol] 12.0 fL Normal 9.5-13.5 [facility] Comment on above: Performed By: #### C BC ####[facility] Z[address]fwcmapa[address] [place] [address]Dr. Donna Malone PLT 152 103/ul Normal 150-450 [facility] Comment on above: Performed By: #### C BC ####[facility] Zqmomevhqj67[address] [place] [address]Dr. Donna Malone RBC 4.01 106/ul Critically low 4.70-6.10 [facility] Comment on above: Performed By: #### C BC ####[facility] Ndjeqqyilz802866 [address] [place], [place] [address]Dr. Donna Malone WBC 6.4 103/ul Normal 4.0-11.0 [facility] Comment on above: Performed By: #### C BC ####[facility] Uxokdltjea804066 [address] [place], [place] [address]Dr. Donna Faisal DEPAKENE/VALPROICon 05-14-20 22 DEPAKENE 17.3 ug/ml Critically low 50.0-100.0 [facility] Comment on above: Performed By: #### V ALP ####[facility] Gxixhpgoex925966 [address] [place], [place] [address]Dr. Donna Malone POINT OF CARE GLUCOSEon Glucose [Mass/Vol] 89 mg/dL Normal 74-106 [facility] Comment on above: Performed By: #### P OCGLUC ####[facility] R[address]ujuhp[address] [place] [address]Dr. Donna Malone PROF CHEM 8 (BAS METB)on Anion gap [Moles/Vol] 13.6 mmol/L Normal [facility] Comment on above: Performed By: #### B MP ####[facility] Majclgndpg755666 [address] [place], [place] [address]Dr. Donna Faisal Calcium [Mass/Vol] 7.8 mg/dL Critically low 8.5-10.1 [facility] Comment on above: Performed By: #### B MP ####[facility] Htntzurfws[address] [place] [address]Dr. Donna Malone Chloride [Moles/Vol] 112 mmol/L Critically high 98-107 [facility] Comment on above: Performed By: #### B MP ####[facility] Zyiezqaqxp8[address] [place] [address]Dr. Donna Malone CO2 [Moles/Vol] 22.5 mmol/L Normal 21.0-32.0 [facility] Comment on above: Performed By: #### B MP ####[facility] Bkiuplcpiy210066 [address] [place], [place] [address]Dr. Donna Malone Creatinine [Mass/Vol] 1.01 mg/dL Normal 0.70-1.30 [facility] Comment on above: Performed By: #### B MP ####[facility] Xjfailqbph283666 [address] [place], [place] [address]Dr. Donna Malone EGFR-AF MOLDOVAN >60 Normal >=60 [facility] Comment on above: Performed By: #### B MP ####[facility] Zqhquqfwpg8464[address] [place], [place] [address]Dr. Donna Malone EGFR-NON AF MOLDOVAN >60 Normal >=60 [facility] Comment on above: Performed By: #### B MP ####[facility] Rnqjgsmvyw169166 [address] [place], [place] [address]Dr. Donna Malone Glucose [Mass/Vol] 84 mg/dL Normal 74-106 [facility] Comment on above: Performed By: #### B MP ####[facility] Rtkwnucokj837466 [address] [place], [place] [address]Dr. Donna Malone Potassium [Moles/Vol] 4.1 mmol/L Normal 3.5-5.1 [facility] Comment on above: Performed By: #### B MP ####[facility] Cumejvowsm060[address] [place], [place] [address]Dr. Rubyyvan Malone Sodium [Moles/Vol] 144 mmol/L Normal 136-145 [facility] Comment on above: Performed By: #### B MP ####[facility] Vmexqsdroy[address] [place] [address]Dr. Donna Malone Urea nitrogen [Mass/Vol] 21.0 mg/dL Critically high 7.0-18.0 [facility] Comment on above: Performed By: #### B MP ####[facility] Erwzzmczed022266 [address] [place], [place] [address]Dr. Donna Malone Urea nitrogen/Creatinine [Mass ratio] 20.8 mg/mg Normal [facility] Comment on above: Performed By: #### B MP ####[facility] Xjiylsanul889166 [address] [place], [place] [address]Dr. Donna Malone TSHon 05-14-2022 TSH 1.086 uIU/mL Normal 0.358-3.74 0 [facility] Comment on above: Performed By: #### T SH ####[facility] Gqykghpxpz2989[address] [place], [place] [address]Dr. Donna Malone BLOOD GASES BTYon 05-13-2022 02 MODE ROOM AIR Normal [facility] Comment on above: Performed By: #### A BG ####[facility] Qsxbaahcbl618166 [address] [place], [place] [address]Dr. Donna Malone ALLENS TEST Positive [facility] Comment on above: Performed By: #### A BG ####[facility] Rwmeopbrwz985166 [address] [place], [place] [address]Dr. Donna Malone Base excess Calc (Bld) [Moles/Vol] -2.5000 mmol/L Critically low -2.0-2.0 [facility] Comment on above: Performed By: #### A BG ####[facility] Cvngxgrxqr261666 [address] [place], [place] [address]Dr. Donna Malone BIPAP PRESSURE Normal [facility] Comment on above: Performed By: #### A BG ####[facility] Ednftxiecw765066 [address] [place], [place] [address]Dr. Donna Malone CPAP [facility] Comment on above: Performed By: #### A BG ####[facility] Hmualkyvgr4118[address] [place], [place] [address]Dr. Donna Malone FIO2 Normal [facility] Comment on above: Performed By: #### A BG ####[facility] Wxnsxjysgr[address] [place] [address]Dr. Donna Malone HCO3 (Bld) [Moles/Vol] 22.4 mmol/L Normal 22.0-26.0 [facility] Comment on above: Performed By: #### A BG ####[facility] Ccpmnqfdak7[address] [place] [address]Dr. Donna Malone LPM [facility] Comment on above: Performed By: #### A BG ####[facility] Xnnnbfxfle870466 [address] [place], [place] [address]Dr. Donna Malone MINUTE VOLUME Normal [facility] Comment on above: Performed By: #### A BG ####[facility] Xlssybxjhq827366 [address] [place], [place] [address]Dr. Donna Malone Oxygen (Bld) [Partial pressure] 77.6 mm[Hg] Critically low 80.0-100.0 [facility] Comment on above: Performed By: #### A BG ####[facility] Fuhywdmqnb60[address] [place], [place] [address]Dr. Donna Malone Oxygen saturation in Blood 95.5 % Normal 95.0-100.0 [facility] Comment on above: Performed By: #### A BG ####[facility] Uymtaufxdg725[address] [place], [place] [address]Dr. Donna Malone PCO2 40.8 mmHg Normal 35.0-45.0 [facility] Comment on above: Performed By: #### A BG ####[facility] Ywmvpncrno9427[address] [place], [place] [address]Dr. Donna Malone PEEP [facility] Comment on above: Performed By: #### A BG ####[facility] Natzyslnqw3313[address] [place], [place] [address]Dr. Donna Malone pH (Bld) 7.359 [pH] Normal 7.350-7.45 0 [facility] Comment on above: Performed By: #### A BG ####[facility] Kgiezvoipz7629[address] [place], [place] [address]Dr. Donna Malone PIP [facility] Comment on above: Performed By: #### A BG ####[facility] Ztcumueuyn[address] [place] [address]Dr. Donna Malone PS [facility] Comment on above: Performed By: #### A BG ####[facility] Mclularsmg6[address] [place] [address]Dr. Donna Malone PUNCTURE SITE RR [facility] Comment on above: Performed By: #### A BG ####[facility] Qkdsrmafmw022[address] [place] [address]Dr. Donna Malone RATE [facility] Comment on above: Performed By: #### A BG ####[facility] Tyzxrhxzfh95[address] [place] [address]Dr. Donna Malone VENT MODE [facility] Comment on above: Performed By: #### A BG ####[facility] Hyhaksvyju7865[address] [place], [place] [address]Dr. Donna Malone VT [facility] Comment on above: Performed By: #### A BG ####[facility] Rlaalmviyb5[address] [place], [place] [address]Dr. Donna Malone BNPon 05-13-2022 Natriuretic peptide B (Bld) [Mass/Vol] 156.0 pg/mL Normal <=900.0 [facility] Comment on above: Performed By: #### C MP, CMADM, BNP ####[facility] Jbikbyfwzb[address] [place] [address]Dr. Donna Malone CARDIAC MJ ADMITon 022 CK [Catalytic activity/Vol] 119 U/L Normal 39-308 [facility] Comment on above: Performed By: #### C MP, CMADM, BNP ####[facility] Jrskofnriv6[address] [place] [address]Dr. Donna Malone CK.MB [Mass/Vol] 1.27 ng/mL Normal <=3.60 [facility] Comment on above: Performed By: #### C MP, CMADM, BNP ####[facility] Pjjbrhkiay3[address] [place] [address]Dr. Donna Malone HSTROP 7.9 pg/mL Normal 4.0-76.1 [facility] Comment on above: Result Comment: CUT- OFF POINTS HAVE BEEN ESTABLISHED BASED ON THE FOURTH UNIVERSAL DEFINITIONS OF MYOCARDIALINFARCTION. THE UPPER REFERENCE LIMIT (URL) OF TROPONIN, DEFINED THE 99TH PERCENTILE OFcTnI DISTRIBUTION IN A REFERENCE POPULATION, HAS BEEN CONFIRMED THE DECISION THRESHOLDFOR PR DIAGNOSIS. Performed By: #### C MP, CMADM, BNP ####[facility] Npsyjccflj[address] [place] [address]Dr. Donna Malone BINDU 111 ng/mL Critically high 16-96 [facility] Comment on above: Performed By: #### C MP, CMADM, BNP ####[facility] Wbfznyjncr9[address] [place] [address]Dr. Donna Malone CBC AUTO DIFFon 05-13-2022 BASO # 0.1 103/ul Normal 0.0-0.1 [facility] Comment on above: Performed By: #### C BC ####[facility] Meqenezabu362466 [address] [place], [place] [address]Dr. Donna Malone Basophils/100 WBC (Bld) 0.8 % Normal 0.2-2.0 [facility] Comment on above: Performed By: #### C BC ####[facility] Cfmxdgaibl759066 [address] [place], [place] [address]Dr. Donna Malone EO # 0.1 103/ul Normal 0.0-0.7 [facility] Comment on above: Performed By: #### C BC ####[facility] Fpospjrsks739366 [address] [place], [place] [address]Dr. Donna Malone Eosinophils/100 WBC (Bld) 1.8 % Normal 0.9-7.0 [facility] Comment on above: Performed By: #### C BC ####[facility] Qtlodwwxkr103766 [address] [place], [place] [address]Dr. Donna Malone Erythrocyte distribution width (RBC) [Ratio] 14.7 % Normal 11.0-15.0 [facility] Comment on above: Performed By: #### C BC ####[facility] Jypobhcqlm3636[address] [place], [place] [address]Dr. Donna Malone Hematocrit (Bld) [Volume fraction] 38.2 % Critically low 42.0-54.0 [facility] Comment on above: Performed By: #### C BC ####[facility] Cogqsfyemz[address] [place] [address]DrElizabeth Donna Malone Hemoglobin (Bld) [Mass/Vol] 12.7 g/dL Critically low 14.0-18.0 [facility] Comment on above: Performed By: #### C BC ####[facility] Kluevhlsnn300166 [address] [place], [place] [address]DrElizabeth Donna Malone IG # 0.03 10e3/ul Normal 0.00-0.03 [facility] Comment on above: Performed By: #### C BC ####[facility] Xanvtflhaz441066 [address] [place], [place] [address]DrElizabeth Donna Malone IG % 0.4 % Normal 0.0-0.5 [facility] Comment on above: Performed By: #### C BC ####[facility] Qogwvivosj847966 [address] [place], [place] [address]DrElizabeth Donna Malone LYMPH # 1.6 103/ul Normal 1.2-3.8 [facility] Comment on above: Performed By: #### C BC ####[facility] Jjcbesuixf238566 [address] [place], [place] [address]DrElizabeth Donna Malone Lymphocytes/100 WBC (Bld) 22.8 % Normal 20.5-60.0 [facility] Comment on above: Performed By: #### C BC ####[facility] Fjzwlohhcs31[address] [place], [place] [address]DrElizabeth Donna Malone MANUAL DIFF REQ NO Normal [facility] Comment on above: Performed By: #### C BC ####[facility] Uzkuqolhqe431166 [address] [place], [place] [address]DrElizabeth Donna Malone MCH (RBC) [Entitic mass] 30.2 pg Normal 25.9-34.0 [facility] Comment on above: Performed By: #### C BC ####[facility] Amohdensvu783266 [address] [place], [place] [address]DrElizabeth Rubyyvan Malone MCHC (RBC) [Mass/Vol] 33.2 g/dL Normal 29.9-35.2 [facility] Comment on above: Performed By: #### C BC ####[facility] A[address]fjxtahc[address] [place] [address]DrElizabeth Donna Faisal MCV (RBC) [Entitic vol] 91.0 fL Normal 80.0-94.0 [facility] Comment on above: Performed By: #### C BC ####[facility] Zpqhemxpxo728166 [address] [place], [place] [address]DrElizabeth Malone MONO # 0.7 103/ul Normal 0.3-0.8 [facility] Comment on above: Performed By: #### C BC ####[facility] Rjelxptaer802066 [address] [place], [place] [address]DrElizabeth Malone Monocytes/100 WBC (Bld) 9.1 % Normal 1.7-12.0 [facility] Comment on above: Performed By: #### C BC ####[facility] Oemoxjeakh3754[address] [place], [place] [address]DrElizabeth Malone NEUT # 4.7 103/ul Normal 1.4-6.5 [facility] Comment on above: Performed By: #### C BC ####[facility] Trktjnmlbh88[address] [place], [place] [address]DrElizabeth Malone Neutrophils/100 WBC (Bld) 65.1 % Normal 43.0-75.0 [facility] Comment on above: Performed By: #### C BC ####[facility] Txwooylztg339366 [address] [place], [place] [address]DrElizabeth Malone Platelet mean volume (Bld) [Entitic vol] 11.8 fL Normal 9.5-13.5 [facility] Comment on above: Performed By: #### C BC ####[facility] Pdhxxnmdql1224[address] [place], [place] [address]DrElizabeth Malone PLT 179 103/ul Normal 150-450 [facility] Comment on above: Performed By: #### C BC ####[facility] Twiitrextw5995[address] [place], [place] [address]DrElizabeth Malone RBC 4.20 106/ul Critically low 4.70-6.10 [facility] Comment on above: Performed By: #### C BC ####[facility] Bgfssznpzi0352 [place], [place] [address]GwElizabeth Donna Malone WBC 7.2 103/ul Normal 4.0-11.0 [facility] Comment on above: Performed By: #### C BC ####[facility] Amdtontewo1367 [place], [place] [address]Qo. Donna F[address] CT STROKE HEAD WOon 05-13-[address] STROKE HEAD WO Normal [facility] Covid-19 PCR (CVDTB)on SARS-CoV-2 (COVID-19) RNA JOSÉ MIGUEL+probe Ql (Unsp spec) Not detected Normal NOT DETECTED [facility] Comment on above: Result Comment: When diagnostic testing is negative, the possibility of a false negative should be considered inthe context of a patient's recent exposures and the presence of clinical signs and symptomsconsistent with SARS-CoV-2.This test is not yet approved or cleared by the [place] FDA. When there are no FDA-approved or cleared tests available, and other criteria are met, FDA can make tests available under an emergency access mechanism called an Emergency Use Authorization (EUA). The EUA for this test is supported by the Land [employer] Manager of Health and Human Service's declaration that circumstances exist to justify the emergency use of in vitro diagnostics for the detection and/or diagnosis of the virus that causes COVID-19. This EUA will remain in effect for the duration of the COVID-19 declaration justifying emergency of IVDs, unless it is terminated or revoked by the FDA (after which the test may no longer be used). Performed By: #### C VDTBH ####[facility] Hztavjgmmd5500 [place], [place] [address]EnElizabeth Malone DEPAKENE/VALPROICon 05-13-20 22 DEPAKENE 16.9 ug/ml Critically low 50.0-100.0 [facility] Comment on above: Performed By: #### V ALP ####[facility] Zvhhrehzht5634 [place], [place] [address]PkElizabeth Malone DRUG SCREEN RAPID (URINE)on 05-13-2022 AMP Negative Normal NEGATIVE [facility] Comment on above: Performed By: #### D RUGRPD ####[facility] [address]ylhki[address] [place] [address]Dr. Donna Malone BAR Negative Normal NEGATIVE [facility] Comment on above: Performed By: #### D RUGRPD ####[facility] Ffwdolsztb[address] [place] [address]Dr. Donna Malone BUP Negative Normal NEGATIVE [facility] Comment on above: Performed By: #### D RUGRPD ####[facility] Aydxavvtoa25[address] [place], [place] [address]Dr. Donna Malone BZO Positive Abnormal NEGATIVE [facility] Comment on above: Performed By: #### D RUGRPD ####[facility] [facility] [address]rkazif[address] [place], [place] [address]Dr. Donna Malone EVONNE Positive Abnormal NEGATIVE [facility] Comment on above: Performed By: #### D RUGRPD ####[facility] Mlurljrref[address] [place], [place] [address]Dr. Donna Malone CUT-OFFS SEE BELOW Normal [facility] Comment on above: Result Comment: AMP (Amphetamine): 500ng/mL, BAR (Barbituates): 200 ng/mL, BZO (Benzodiazepines): 150 ng/mL, BUP (Buprenorphine): 10 ng/mL, EVONNE (Cocaine): 150 ng/mL, mAMP (Methamphetamine): 500 ng/mL, MTD (Methadone): 200 ng/mL, OPI (Opiates): 100 ng/mL, OXY (Oxycodone): 100 ng/mL, PCP (Phencyclidine): 25 ng/mL, PPX (Propoxyphene): 300 ng/mL, THC (Cannabinoids): 50 ng/mL, TCA (Trycyclic Antidepressants): 300 ng/mL Performed By: #### D RUGRPD ####[facility] [address] [place] [address]Dr. Donna Malone DRUG CUT HEADER DRUG CLASS TEST SYST EM CUT-OFF CONCENTRATIONS ARE FOLLOWS: Normal [facility] Comment on above: Performed By: #### D RUGRPD ####[facility] [address] [place] [id number]. Donna Malone mAMP Negative Normal NEGATIVE [facility] Comment on above: Performed By: #### D RUGRPD ####[facility] [address]afp[address] [place] [id number]. Donna Malone MTD Negative Normal NEGATIVE [facility] Comment on above: Performed By: #### D RUGRPD ####[facility] [address] [place] [address]Dr. Donna Malone OPI Positive Abnormal NEGATIVE [facility] Comment on above: Performed By: #### D RUGRPD ####[facility] [address] [place] [address]Dr. Donna Malone OXY Negative Normal NEGATIVE [facility] Comment on above: Performed By: #### D RUGRPD ####[facility] [address] [place] [address]Dr. Donna Faisal PCP Negative Normal NEGATIVE [facility] Comment on above: Performed By: #### D RUGRPD ####[facility] [address] [place] [address]Dr. Donna Malone PPX Negative Normal NEGATIVE [facility] Comment on above: Performed By: #### D RUGRPD ####[facility] [address] [place] [address]Dr. Donna Malone TCA Positive Abnormal NEGATIVE [facility] Comment on above: Performed By: #### D RUGRPD ####[facility] [address] [place] [address]Dr. Donna Malone THC Negative Normal NEGATIVE [facility] Comment on above: Performed By: #### D RUGRPD ####[facility] X[address] [place] [address]Dr. Donna Faisal ER URINE PROFILEon 2 Bilirubin Ql (U) MODERATE Abnormal NEGATIVE [facility] Comment on above: Performed By: #### E RUR ####[facility] [address]ce[address]rxmap[address] [place], [place] [address]Dr. Donna Malone Clarity (U) SL CLOUDY Abnormal CLEAR [facility] Comment on above: Performed By: #### E RUR ####[facility] Ymqiydisss[address] [place], [place] [address]Dr. Donna Malone Color (U) DK. YELLOW Normal YELLOW [facility] Comment on above: Performed By: #### E RUR ####[facility] Wghgulykel[address] [place], [place] [address]Dr. Donna Malone ERUAHD A micrscopic examina tion will be performed if indicated. Normal [facility] Comment on above: Performed By: #### E RUR ####[facility] [address]fzlfcu[address] [place], [place] [address]Dr. Donna Malone Glucose Ql (U) 250 mg/dl Abnormal NEGATIVE [facility] Comment on above: Performed By: #### E RUR ####[facility] Swqwogdiih[address] [place], [place] [address]Dr. Donna Malone Hemoglobin Ql (U) Negative Normal NEGATIVE [facility] Comment on above: Performed By: #### E RUR ####[facility] Vmqiulenge2[address] [place], [place] [address]Dr. Donna Malone Ketones Ql (U) TRACE Abnormal NEGATIVE [facility] Comment on above: Performed By: #### E RUR ####[facility] Rzeadkhykz[address] [place], [place] [address]Dr. Donna Malone LEUKOCYTES Negative Normal NEGATIVE [facility] Comment on above: Performed By: #### E RUR ####[facility] Msqajcszaf[address] [place], [place] [address]Dr. Donna Malone Nitrite Ql (U) Negative Normal NEGATIVE [facility] Comment on above: Performed By: #### E RUR ####[facility] Lxjymbxojv[address] [place], [place] [address]Dr. Donna Malone pH (U) 5.5 [pH] Normal 5-9 [facility] Comment on above: Performed By: #### E RUR ####[facility] Febuqcavzq[address] [place], [place] [address]Dr. Donna Malone SPEC GRAVITY >=1.030 Abnormal 1.005-<=1. 025 [facility] Comment on above: Performed By: #### E RUR ####[facility] [address]fm[address] [place] [address]Dr. Donna Malone UA PROTEIN TRACE Normal NEGATIVE/ TRACE [facility] Comment on above: Performed By: #### E RUR ####[facility] R[address]fgrgtzu[address] [place], [place] [address]Dr. Donna Malone UR MICRO IND NOT INDICATED Normal [facility] Comment on above: Performed By: #### E RUR ####[facility] Fthnxfhuef[address] [place], [place] [address]Dr. Donna Malone Urobilinogen Qn (U) 1.0 {Jermain'U}/dL Normal 0.2 - 1. 0 [facility] Comment on above: Performed By: #### E RUR ####[facility] Trhedrgixk[address] [place], [place] [address]Dr. Donna Malone ETHANOL (BLD ALC)on 05-13-20 ALC NOTE NOTE: 80 mg/dl is th e legal limit for a blood alcohol level Normal [facility] Comment on above: Performed By: #### E TH ####[facility] Mxktiqfvtl[address] [place], [place] [address]Dr. Donna Malone Ethanol [Mass/Vol] mg/dL Normal [facility] Comment on above: Performed By: #### E TH ####[facility] Oxrxixpkrh[address] [place], [place] [address]DrElizabeth Malone LACTATE/LACTIC ACIDon 2021 Lactate [Moles/Vol] 1.7 mmol/L Normal 0.4-1.9 [facility] Comment on above: Performed By: #### L ACT ####[facility] Makcmayizn[address] [place], [place] [address]DrElizabeth Malone POINT OF CARE GLUCOSEon Glucose [Mass/Vol] 99 mg/dL Normal 74-106 [facility] Comment on above: Performed By: #### P OCGLUC ####[facility] Wbghhnjhvq[address] [place], [place] [address]DrElizabeth Malone PROF 14(COMP METB)on 022 Albumin [Mass/Vol] 3.1 g/dL Critically low 3.4-5.0 [facility] Comment on above: Performed By: #### C MP, CMADM, BNP ####[facility] [address]utn[address] [place] [address]Dr. Donna Malone Albumin/Globulin [Mass ratio] 1.0 {ratio} Normal [facility] Comment on above: Performed By: #### C MP, CMADM, BNP ####[facility] Fabsminhdd[address] [place], [place] [address]Dr. Donna Malone ALP [Catalytic activity/Vol] 37 U/L Critically low 46-116 [facility] Comment on above: Performed By: #### C MP, CMADM, BNP ####[facility] Ctyyuxnpkf[address] [place], [place] [address]Dr. Donna Malone ALT [Catalytic activity/Vol] 14 U/L Critically low 16-63 [facility] Comment on above: Performed By: #### C MP, CMADM, BNP ####[facility] Keavggjypq[address] [place], [place] [address]Dr. Donna Malone Anion gap [Moles/Vol] 12.3 mmol/L Normal [facility] Comment on above: Performed By: #### C MP, CMADM, BNP ####[facility] Ovffcwktqn[address] [place], [place] [address]Dr. Donna Malone AST [Catalytic activity/Vol] 12 U/L Critically low 15-37 [facility] Comment on above: Performed By: #### C MP, CMADM, BNP ####[facility] Sfhotnnpmo[address] [place], [place] [address]Dr. Donna Malone Bilirubin [Mass/Vol] 0.4 mg/dL Normal 0.2-1.0 [facility] Comment on above: Performed By: #### C MP, CMADM, BNP ####[facility] Ddderiailp[address] [place], [place] [address]Dr. Donna Malone Calcium [Mass/Vol] 7.8 mg/dL Critically low 8.5-10.1 [facility] Comment on above: Performed By: #### C MP, CMADM, BNP ####[facility] [address]iyh[address] [place] [address]Dr. Donna Malone Chloride [Moles/Vol] 108 mmol/L Critically high 98-107 [facility] Comment on above: Performed By: #### C MP, CMADM, BNP ####[facility] [address]qrp[address] [place] [address]Dr. Donna Malone CO2 [Moles/Vol] 24.8 mmol/L Normal 21.0-32.0 [facility] Comment on above: Performed By: #### C MP, CMADM, BNP ####[facility] Yjmtccnfmb[address] [place], [place] [address]Dr. Donna Malone Creatinine [Mass/Vol] 1.83 mg/dL Critically high 0.70-1.30 [facility] Comment on above: Performed By: #### C MP, CMADM, BNP ####[facility] Oluckydumq[address] [place], [place] [address]Dr. Donna Malone EGFR-AF MOLDOVAN 45 mL/min/1.73m2 Critically low >=60 [facility] Comment on above: Performed By: #### C MP, CMADM, BNP ####[facility] [address]cjq[address] [place], [place] [address]Dr. Donna Malone EGFR-NON AF MOLDOVAN 37 mL/min/1.73m2 Critically low >=60 [facility] Comment on above: Performed By: #### C MP, CMADM, BNP ####[facility] X[address]vpurt[address] [place], [place] [address]Dr. Donna Malone Globulin (S) [Mass/Vol] 3.2 g/dL Normal [facility] Comment on above: Performed By: #### C MP, CMADM, BNP ####[facility] Bfjejygmuv[address] [place], [place] [address]Dr. Donna Malone Glucose [Mass/Vol] 202 mg/dL Critically high 74-106 [facility] Comment on above: Performed By: #### C MP, CMADM, BNP ####[facility] [address] [place] [address]Dr. Donna Malone Potassium [Moles/Vol] 4.1 mmol/L Normal 3.5-5.1 [facility] Comment on above: Performed By: #### C MP, CMADM, BNP ####[facility] [address]qr[address] [place] [address]Dr. Donna Malone Protein [Mass/Vol] 6.3 g/dL Critically low 6.4-8.2 [facility] Comment on above: Performed By: #### C MP, CMADM, BNP ####[facility] [address] [place] [address]Dr. Donna Malone Sodium [Moles/Vol] 141 mmol/L Normal 136-145 [facility] Comment on above: Performed By: #### C MP, CMADM, BNP ####[facility] [address] [place] [address]Dr. Donna Malone Urea nitrogen [Mass/Vol] 32.0 mg/dL Critically high 7.0-18.0 [facility] Comment on above: Performed By: #### C MP, CMADM, BNP ####[facility] [address] [place] [address]Dr. Donna Malone Urea nitrogen/Creatinine [Mass ratio] 17.5 mg/mg Normal [facility] Comment on above: Performed By: #### C MP, CMADM, BNP ####[facility] [address] [place] [address]Dr. Donna Malone PROTIMEon 05-13-2022 INR Coag (PPP) [Relative time] 1.04 {INR} Normal [facility] Comment on above: Performed By: #### P T, PTT ####[facility] [address] [place] [address]Dr. Donna Malone INR GUIDELINES SEE BELOW Normal [facility] Comment on above: Result Comment: FLORESITA RED INR: 2.0 - 3.0 CONDITIONS NOT LISTED BELOW 2.5 - 3.5 FOR PROSTHETIC HEART VALVE REPLACEMENT 2.5 - 3.5 RECURRENT THROMBOSIS Performed By: #### P T, PTT ####[facility] [address] [place], [place] [address]Vo. Donna Malone PT Coag (PPP) [Time] 11.2 s Normal 9.0-11.6 [facility] Comment on above: Performed By: #### P T, PTT ####[facility] [address] [place], [place] [address]Or. Donna Malone PTTon 05-13-2022 aPTT Coag (Bld) [Time] 27.5 s Normal 22.3-36.2 [facility] Comment on above: Performed By: #### P T, PTT ####[facility] [address] [place], [place] [address]Hi. Donna Malone XR CHEST 1 Von 05-13-2022 XR CHEST 1 V Normal [facility] Ambulatory Visit Summaryon 0 10-03-2021 Ambulatory Visit Summary TAYLOR MCCLELLAN SR :1955 Visit Date:10/03/2021 Ambulatory Visit Instructions Your Diagnosis Benign localized prostatic hyperplasia without lower urinary tract symptoms (LUTS) Nocturia Urge incontinence Post-void dribbling Your Care Team Attending Physician - Sharad Grossman MD, Lisandro Espinal Primary Care Physician - Genesis Reynolds MD This Is Your Medications List ciprofloxacin (Cipro 500 mg Tab) Contact prescribing physician if questions or concerns acetaminophen acetaminophen-hydrocodone ([place] 5/325 Tab) amlodipine (amLODIPine 5 mg Tab) aspirin (aspirin 81 mg oral tablet) bisacodyl (Dulcolax Supp) brexpiprazole (brexpiprazole 2 mg oral tablet) busPIRone (busPIRone 10 mg Tab) cefdinir celecoxib (Celebrex) clopidogrel (clopidogrel 75 mg Tab) divalproex sodium doxepin (doxepin 25 mg Cap) lisinopril (lisinopril 10 mg Tab) lorazepam (LORazepam 1 mg Tab) magnesium hydroxide (Milk of Magnesia) metformin (metformin 500 mg Tab) pregabalin (Lyrica) ropinirole (ropinirole 0.25 mg Tab) ropinirole (ropinirole 0.5 mg Tab) simvastatin (simvastatin 20 mg Tab) sodium biphosphate-sodium phosphate (Fleet Enema) trazodone (traZODONE 150 mg Tab) Procedures Performed Transurethral insertion of prostatic urethral lift implant (10/30/2018), CABG (Coronary artery bypass grafting) planned (09/09/2004), History of lumbar laminectomy, Insertion of bone growth stimulator. Discharge Vitals Height 180.0 cm Height 180 cm Weight 100.0 kg Weight 100 kg BMI 30.86 What to do next You Need to Schedule the Following Appointments Follow Up with Sharad Grossman MD, Lisandro Espinal URO When: Why: Will schedule [facility] Where: [facility] [address] [place] [address]- Medications What How Much When Instructions New ciprofloxacin (Cipro 500 mg Tab) 1 Tablets By Mouth Every day Take 1 tablet the day before the procedure and 1 tablet after the procedure Pickup at [facility] Unchanged acetaminophen 650 Milligram Every 4 hours Contact prescribing physician if questions or concerns Unchanged acetaminophen-hydrocodone ([place] 5/ 325 Tab) 1 Tablets By Mouth Every 8 hours Contact prescribing physician if questions or concerns Unchanged amlodipine (amLODIPine 5 mg Tab) 1 Tablets By Mouth Every day Contact prescribing physician if questions or concerns Unchanged aspirin (aspirin 81 mg oral tablet) 1 Tablets By Mouth Every day Contact prescribing physician if questions or concerns Unchanged bisacodyl (Dulcolax Supp) 1 Suppositories By rectum Every day as needed for for constipation Contact prescribing physician if questions or concerns Unchanged brexpiprazole (brexpiprazole 2 mg oral tablet) 1 Tablets By Mouth Every day Contact prescribing physician if questions or concerns Unchanged busPIRone (busPIRone 10 mg Tab) 1 Tablets By Mouth 2 times a day Contact prescribing physician if questions or concerns Unchanged cefdinir 300 Milligram By Mouth Every day Contact prescribing physician if questions or concerns Unchanged celecoxib (Celebrex) 200 Milligram By Mouth Contact prescribing physician if questions or concerns Unchanged clopidogrel (clopidogrel 75 mg Tab) 1 Tablets By Mouth Every day Contact prescribing physician if questions or concerns Unchanged divalproex sodium 500 Milligram By Mouth 2 times a day Contact prescribing physician if questions or concerns Unchanged doxepin (doxepin 25 mg Cap) 1 Capsules By Mouth Every day Contact prescribing physician if questions or concerns Unchanged lisinopril (lisinopril 10 mg Tab) 1 Tablets By Mouth Every day Contact prescribing physician if questions or concerns Unchanged lorazepam (LORazepam 1 mg Tab) 1 Tablets By Mouth Contact prescribing physician if questions or concerns Unchanged magnesium hydroxide (Milk of Magnesia) By Mouth Contact prescribing physician if questions or concerns Unchanged metformin (metformin 500 mg Tab) 1 Tablets By Mouth 2 times a day Contact prescribing physician if questions or concerns Unchanged pregabalin (Lyrica) 300 Milligram By Mouth 2 times a day Contact prescribing physician if questions or concerns Unchanged ropinirole (ropinirole 0.25 mg Tab) 1 Tablets By Mouth At bedtime Contact prescribing physician if questions or concerns Unchanged ropinirole (ropinirole 0.5 mg Tab) 1 Tablets By Mouth As Directed Contact prescribing physician if questions or concerns Unchanged simvastatin (simvastatin 20 mg Tab) 1 Tablets By Mouth Contact prescribing physician if questions or concerns Unchanged sodium biphosphate-sodium phosphate (Fleet Enema) By rectum Once Contact prescribing physician if questions or concerns Unchanged trazodone (traZODONE 150 mg Tab) 1 Tablets By Mouth Once a day (at bedtime) Contact prescribing physician if questions or concerns Pharmacy Information [id number]: [address] [place], [place] [id number] [phone] (more content not included)... Normal [facility] Ambulatory Visit Summary TAYLOR MCCLELLAN SR :1955 Visit Date:10/03/2021 Ambulatory Visit Instructions Your Diagnosis Benign localized prostatic hyperplasia without lower urinary tract symptoms (LUTS) Nocturia Urge incontinence Post-void dribbling Your Care Team Attending Physician - Lisandro Orourke Jr., MD Primary Care Physician - Genesis Reynolds MD This Is Your Medications List ciprofloxacin (Cipro 500 mg Tab) Contact prescribing physician if questions or concerns acetaminophen acetaminophen-hydrocodone ([place] 5/325 Tab) amlodipine (amLODIPine 5 mg Tab) aspirin (aspirin 81 mg oral tablet) bisacodyl (Dulcolax Supp) brexpiprazole (brexpiprazole 2 mg oral tablet) busPIRone (busPIRone 10 mg Tab) cefdinir celecoxib (Celebrex) clopidogrel (clopidogrel 75 mg Tab) divalproex sodium doxepin (doxepin 25 mg Cap) lisinopril (lisinopril 10 mg Tab) lorazepam (LORazepam 1 mg Tab) magnesium hydroxide (Milk of Magnesia) metformin (metformin 500 mg Tab) pregabalin (Lyrica) ropinirole (ropinirole 0.25 mg Tab) ropinirole (ropinirole 0.5 mg Tab) simvastatin (simvastatin 20 mg Tab) sodium biphosphate-sodium phosphate (Fleet Enema) trazodone (traZODONE 150 mg Tab) Procedures Performed Transurethral insertion of prostatic urethral lift implant (10/30/2018), CABG (Coronary artery bypass grafting) planned (09/09/2004), History of lumbar laminectomy, Insertion of bone growth stimulator. Discharge Vitals Height 180.0 cm Height 180 cm Weight 100.0 kg Weight 100 kg BMI 30.86 What to do next You Need to Schedule the Following Appointments Follow Up with Sharad Grossman MD, Lisandro Espinal, URO When: Why: Will schedule [facility] Where: [facility] [address], [place] [address]- Medications What How Much When Instructions New ciprofloxacin (Cipro 500 mg Tab) 1 Tablets By Mouth Every day Take 1 tablet the day before the procedure and 1 tablet after the procedure Pickup at [facility] Unchanged acetaminophen 650 Milligram Every 4 hours Contact prescribing physician if questions or concerns Unchanged acetaminophen-hydrocodone ([place] 5/ 325 Tab) 1 Tablets By Mouth Every 8 hours Contact prescribing physician if questions or concerns Unchanged amlodipine (amLODIPine 5 mg Tab) 1 Tablets By Mouth Every day Contact prescribing physician if questions or concerns Unchanged aspirin (aspirin 81 mg oral tablet) 1 Tablets By Mouth Every day Contact prescribing physician if questions or concerns Unchanged bisacodyl (Dulcolax Supp) 1 Suppositories By rectum Every day as needed for for constipation Contact prescribing physician if questions or concerns Unchanged brexpiprazole (brexpiprazole 2 mg oral tablet) 1 Tablets By Mouth Every day Contact prescribing physician if questions or concerns Unchanged busPIRone (busPIRone 10 mg Tab) 1 Tablets By Mouth 2 times a day Contact prescribing physician if questions or concerns Unchanged cefdinir 300 Milligram By Mouth Every day Contact prescribing physician if questions or concerns Unchanged celecoxib (Celebrex) 200 Milligram By Mouth Contact prescribing physician if questions or concerns Unchanged clopidogrel (clopidogrel 75 mg Tab) 1 Tablets By Mouth Every day Contact prescribing physician if questions or concerns Unchanged divalproex sodium 500 Milligram By Mouth 2 times a day Contact prescribing physician if questions or concerns Unchanged doxepin (doxepin 25 mg Cap) 1 Capsules By Mouth Every day Contact prescribing physician if questions or concerns Unchanged lisinopril (lisinopril 10 mg Tab) 1 Tablets By Mouth Every day Contact prescribing physician if questions or concerns Unchanged lorazepam (LORazepam 1 mg Tab) 1 Tablets By Mouth Contact prescribing physician if questions or concerns Unchanged magnesium hydroxide (Milk of Magnesia) By Mouth Contact prescribing physician if questions or concerns Unchanged metformin (metformin 500 mg Tab) 1 Tablets By Mouth 2 times a day Contact prescribing physician if questions or concerns Unchanged pregabalin (Lyrica) 300 Milligram By Mouth 2 times a day Contact prescribing physician if questions or concerns Unchanged ropinirole (ropinirole 0.25 mg Tab) 1 Tablets By Mouth At bedtime Contact prescribing physician if questions or concerns Unchanged ropinirole (ropinirole 0.5 mg Tab) 1 Tablets By Mouth As Directed Contact prescribing physician if questions or concerns Unchanged simvastatin (simvastatin 20 mg Tab) 1 Tablets By Mouth Contact prescribing physician if questions or concerns Unchanged sodium biphosphate-sodium phosphate (Fleet Enema) By rectum Once Contact prescribing physician if questions or concerns Unchanged trazodone (traZODONE 150 mg Tab) 1 Tablets By Mouth Once a day (at bedtime) Contact prescribing physician if questions or concerns Pharmacy Information [id number]: [address] [place], [place] [id number] [phone] (more content not included)... Normal [facility] Recordson 10-03 [facility] Records [id number]:[id number] Normal [facility] Patient Educationon 10-03-19 Patient Education Urology Benign Prostatic Hyperplasia Benign prostatic hyperplasia (BPH) is an enlarged prostate gland that is caused by the normal aging process and not by cancer. The prostate is a walnut-sized gland that is involved in the production of semen. It is located in front of the rectum and below the bladder. The bladder stores urine and the urethra is the tube that carries the urine out of the body. The prostate may get bigger as a man gets older. An enlarged prostate can press on the urethra. This can make it harder to pass urine. The build-up of urine in the bladder can cause infection. Back pressure and infection may progress to bladder damage and kidney (renal) failure. What are the causes? This condition is part of a normal aging process. However, not all men develop problems from this condition. If the prostate enlarges away from the urethra, urine flow will not be blocked. If it enlarges toward the urethra and compresses it, there will be problems passing urine. What increases the risk? This condition is more likely to develop in men over the age of 50 years. What are the signs or symptoms? Symptoms of this condition include: ? Getting up often during the night to urinate. ? Needing to urinate frequently during the day. ? Difficulty starting urine flow. ? Decrease in size and strength of your urine stream. ? Leaking (dribbling) after urinating. ? Inability to pass urine. This needs immediate treatment. ? Inability to completely empty your bladder. ? Pain when you pass urine. This is more common if there is also an infection. ? Urinary tract infection (UTI). How is this diagnosed? This condition is diagnosed based on your medical history, a physical exam, and your symptoms. Tests will also be done, such as: ? A post-void bladder scan. This measures any amount of urine that may remain in your bladder after you finish urinating. ? A digital rectal exam. In a rectal exam, your health care provider checks your prostate by putting a lubricated, gloved finger into your rectum to feel the back of your prostate gland. This exam detects the size of your gland and any abnormal lumps or growths. ? An exam of your urine (urinalysis). ? A prostate specific antigen (PSA) screening. This is a blood test used to screen for prostate cancer. ? An ultrasound. This test uses sound waves to electronically produce a picture of your prostate gland. Your health care provider may refer you to a specialist in kidney and prostate diseases (urologist). How is this treated? Once symptoms begin, your health care provider will monitor your condition (active surveillance or watchful waiting). Treatment for this condition will depend on the severity of your condition. Treatment may include: ? Observation and yearly exams. This may be the only treatment needed if your condition and symptoms are mild. ? Medicines to relieve your symptoms, including: ? Medicines to shrink the prostate. ? Medicines to relax the muscle of the prostate. ? Surgery in severe cases. Surgery may include: ? Prostatectomy. In this procedure, the prostate tissue is removed completely through an open incision or with a laparoscope or robotics. ? Transurethral resection of the prostate (TURP). In this procedure, a tool is inserted through the opening at the tip of the penis (urethra). It is used to cut away tissue of the inner core of the prostate. The pieces are removed through the same opening of the penis. This removes the blockage. ? Transurethral incision (TUIP). In this procedure, small cuts are made in the prostate. This lessens the prostate's pressure on the urethra. ? Transurethral microwave thermotherapy (TUMT). This procedure uses microwaves to create heat. The heat destroys and removes a small amount of prostate tissue. ? Transurethral needle ablation (TUNA). This procedure uses radio frequencies to destroy and remove a small amount of prostate tissue. ? Interstitial laser coagulation (ILC). This procedure uses a laser to destroy and remove a small amount of prostate tissue. ? Transurethral electrovaporization (TUVP). This procedure uses electrodes to destroy and remove a small amount of prostate tissue. ? Prostatic urethral lift. This procedure inserts an implant to push the lobes of the prostate away from the urethra. Follow these instructions at home: ? Take djlk-nao-mxgmgan and prescription medicines only as told by your health care provider. ? Monitor your symptoms for any changes. Contact your health care provider with any changes. ? Avoid drinking large amounts of liquid before going to bed or out in public. ? Avoid or reduce how much caffeine or alcohol you drink. ? Give yourself time when you urinate. ? Keep all follow-up visits as told by your health care provider. This is important. Contact a health care provider if: ? You have unexplained back pain. ? Your symptoms do not get better with treatment. ? You d (more content not included)... [facility] Urology Office/Clinic Noteon 10-03-2021 Urology Office/Clinic Note Chief Complaint This is a 66 year old male in the [place] ER on 09/14/21. This patient has a history of prostatic hyperplasia. Recently he developed urinary incontinence urinary urgency frequency and incomplete voiding. Does have a history of back surgery with swetha placement at the time of a lumbar laminectomy. He is having control issues. He had a UroLift in 2019 and apparently was doing fairly well until recently. He is here today to reestablish urologic care. HPI Staff Pt. last seen in office 2019. S/P UroLift 10/30/18. Pt. was seen in the [facility] ER on 09/14/21 due to generalized weakness. Pt. had a Galindo catheter placed due to acute kidney injury. Pt. had catheter removed, Pt. and does not remember who took the catheter out. Pt. states Pt. urine was very dark when Pt. went to ER. Pain with urination:No Blood in urine:No Incomplete bladder emptying:No Frequency:pt. states every hour Urgency:Moderate Nocturia:3-4x's Hesitancy:No Urination requires straining:No Stream:Strong Stream starts and stops:No Post-void dribbling:Moderate Leaking before getting to the restroom:Moderate Urinary incontinence without sensory awareness:No Temporarily unable to restrain urination with body movement:No Wearing pad/Depends:Yes 3-4 pads a day. Urine odor:No History of Present Illness I have reviewed and verified the staff HPI to be accurate for this encounter. Review of Systems ROS - Provider Constitutional: denies weight loss, denies hot flashes. Eyes: denies eye problems. Gastrointestinal: denies nausea, denies vomiting. Cardiovascular: denies chest pain or angina. Integumentary: no dryness Musculoskeletal: moderate musculoskeletal symptoms. Uses wheelchair ENMT: denies otolaryngeal symptoms. Respiratory: no shortness of breath. Heme/Lymph: denies easy bleeding tendency, denies easy bruising tendency. Psychiatric: no confusion, no anxiety. Genitourinary: denies dysuria, denies hematuria, denies discharge, denies urinary frequency, denies urinary hesitancy, mild nocturia, moderate incontinence. Physical Exam Vitals & Measurements HT: 180.0 cm HT: 180 cm WT: 100.0 kg WT: 100 kg BMI: 30.86 General Appearance: alert, no distress, well nourished, well developed male. This patient is using a walker for ambulation. He is fairly steady without it. Head: normocephalic . Eyes: normal orbit and globe. ENMT: normal examination of external ears. Chest: Lungs CTA, respirations non labored. Cardiovascular: regular rate and rhythm. Abdomen: soft, non distended, no tenderness, no mass or organomegaly, no hernia. No abdominal pain was noted. There is no distention rebound or guarding. Genitourinary: normal scrotum, normal testes, normal urethra, normal epididymis, normal vas deferens/spermatic cord. Flank Pain: none. Bladder: nonpalpable. Penis: normal shaft, normal glans. Prostate: normal prostate, estimated weight 40 gms, no hard nodule observed. Lymph Nodes: unremarkable palpation of the cervical area. Skin: warm, dry, no bruising. Psychiatric: cooperative, affect appropriate for age, normal judgement, euthymic mood. Assessment/Plan This patient has a history of outlet obstruction symptoms. He was treated with a UroLift procedure in 2019 and did well until recently. Family was in the hospital at [place] where he had severe weakness. A Galindo catheter was placed and has had some symptoms of urgency with urgency incontinence, urinary frequency and is here today to reestablish urologic care. My first plan will be to perform a cystoscopic examination to determine the possibility of outlet obstruction. Preop antibiotics have been ordered. All of his questions were answered and informed consent has been obtained. The procedure, risk, alternatives and potential complications have been discussed in detail. 1. Benign localized prostatic hyperplasia without lower urinary tract symptoms (LUTS) (N40.0: Benign prostatic hyperplasia without lower urinary tract symptoms) Average stream. Not currently taking any prostate medications. S/P Urolift 10/30/18. Patient was last seen in 2019. Patient was in [facility] 09/14/21 due to weakness and acute kidney injury, bacterial pneumonia, and had galindo placed. It has since been removed. Will plan Cysto to evaluate prostate and bladder. The risks and benefits for cystoscopy have been discussed. The risks include bleeding, infection, and irritation of the bladder and urinary channel, among others. The patient, after being informed of procedural details and after questions have been answered, wishes to proceed. Full informed consent has been obtained. Will order Local anesthesia. 2. Nocturia (R35.1: Nocturia) moderate, 3-4 times per night. He will sometimes leak at night before he can get out of bed. 3. Urge incontinence (N39.41: Urge incontinence) moderate, wears a pad for leaking, changes 3-4 times per day 4. Post-void dribbling (N39.43: Post-void dribbling) moderate, (more content not included)... [facility] Comment on above: Result Comment: Elec tronically Signed By: Sharad Grossman MD, Lisandro Espinal\.br\Date and Time Signed: 10/03/21 12:37 EST\.br\Electronically Co-Signed By: Lisandra Arias\.br\Date and Time Co-Signed: 10/03/21 12:32 EST APTTon 10-13-2019 aPTT Coag (Bld) [Time] 34.9 s Normal 25.0-35.0 [facility] Comment on above: Result Comment: ALL RESULTS MUST BE INTERPRETED WITH RESPECT TO BLOOD DRAWING ARTIFACT OR DILUTION ERROR OF ANTICOAGULANT AT THE TIME OF SAMPLING. THE APTT SHOULD NOT BE USED TO MONITOR UNFRACTIONATED HEPARIN THERAPY, THIS LABORATORY NO LONGER HAS AN ESTABLISHED THERAPEUTIC RANGE BASED ON THE APTT. IT IS RECOMMENDED THAT THE UFH - HEPARIN ASSAY (ANTI-XA ACTIVITY) BE USED FOR THIS PURPOSE. Performed By: #### 5 [id number], [id number] #### [address] CREATININE BLOODon 0 Creatinine [Mass/Vol] 1.07 mg/dL Normal 0.70-1.30 [facility] Comment on above: Performed By: #### 2 [id number] #### [place] [address], [facility] Creatinine [Mass/Vol] mg/dL Normal >60 [facility] Comment on above: Performed By: #### 2 [id number] #### [place] [address], [facility] CT LUMBAR SPINE W CONTRASTon 10-13-2019 CT LUMBAR SPINE W CONTRAST [facility] Department of Radiology [address] [place] [id number] Patient Name: TAYLOR MCCLELLAN : 1955 Sex: M Age: Race: White Pt. Location: 84 Patient Status: O Ordered Date: 09/11/2019 2:50:00 PM Completed Date: 10/13/2019 11:37 AM Requesting Provider: JASEN HOWARD Attending Provider: JASEN HOWARD Report Copy To: LUI BRYSON Signs & Symptoms: M51.36 Other intervertebral disc degeneration, lumbar region I10 History: [place] Need Saturday appointment call [facility] [phone] [facility] auth# [id number] 09/16/19-10/15/19 cpt code 79091 *mla Comments: Exam: CT LUMBAR SPINE W CONTRAST CT LUMBAR SPINE W CONTRAST 10/13/2019 11:37 AM TECHNOLOGIST COMMENTS: rt hip pain and lower back for for at least 2 yrs QUESTION FOR RADIOLOGIST: PROTOCOL: Axial CT images of the spine were obtained with IV contrast. TECHNIQUE: Multi detector CT axial slices of the lumbar spine are obtained from the T11 to the S4 vertebral body without IV contrast. Volumetric acquisition sagittal, coronal, and 3-D reconstructions were performed and reviewed on a separate workstation. COMPARISON: None FINDINGS: There is preservation of the vertebral body heights and intervertebral discs revealed moderate disc space narrowing at L5-S1 level and disc spacer at L4-5 with bony spurring at all levels. No fractures or dislocations are seen. The alignment of the lumbar spine is normal. The paraspinous soft tissues are within normal limits. The visualized lung parenchyma is unremarkable. The visualized abdominal and pelvic viscera is unremarkable. There is unilateral right-sided posterior spinal hardware fusion with transpedicular screws at L4-5 level. Bilateral degenerative sacroiliitis. Significant vascular calcifications in the aorta and iliac arteries with vascular stents seen in the right common iliac artery. Piece of intrathecal catheter is seen extending from the inferior L3 to the thoracic spine and is not connected outside the spinal canal. There is small central disc bulge at L3-4 indenting the anterior thecal sac but without significant canal stenosis. No other focal disc pathology is appreciated. IMPRESSION: No acute bony abnormality or malalignment. Moderate lumbar spondylosis status post unilateral right-sided posterior hardware fusion at L4-5 with disc spacer in place. Mild central disc bulge at L3-4 indenting the thecal sac but without significant canal stenosis. Extensive vascular calcifications and stents in the right common iliac artery. Not connected piece of intrathecal catheter is seen as described above from L3 to the highest level imaged within the thoracic spine All CT scans at this facility use dose modulation, iterative reconstruction, and/or weight based dosing when appropriate to reduce radiation dose to as low as reasonably achievable Electronically signed: Fredy Salmeron. Transcribed by: [email or web address], User Resident: Electronically Signed by: FREDY SALMERON @ 10/13/2019 02:08 PM Normal [facility] LUMBAR MYELOGRAMon 0 LUMBAR MYELOGRAM [facility] Department of Radiology [address] [place] [id number] Patient Name: TAYLOR MCCLELLAN : 1955 Sex: M Age: Race: White Pt. Location: Patient Status: O Ordered Date: 09/11/2019 2:50:00 PM Completed Date: 10/13/2019 10:49 AM Requesting Provider: JASEN HOWARD Attending Provider: JASEN HOWARD Report Copy To: LUI BRYSON Signs & Symptoms: M51.36 Other intervertebral disc degeneration, lumbar region I10 History: [place] Need Saturday appointment Patient will need labs, holding aspirin 3 days Comments: , , , Ordering Provider - JASEN HOWARD MD , Exam: LUMBAR MYELOGRAM LUMBAR MYELOGRAM 10/13/2019 10:49 AM SIGNS AND SYMPTOMS: M51.36 Other intervertebral disc degeneration, lumbar region I10 TECHNOLOGIST COMMENTS: complains of low back pain that radiates down legs surgery x years ago Omni 180 15ml injected into epidural .10 min fluoro time 6 images sent QUESTION FOR THE RADIOLOGIST: , , , Ordering Provider - JASEN HOWARD MD , INFORMED CONSENT: Reason for procedure was discussed with the patient. The procedure expectations risks benefits options and alternatives were discussed. All the questions were answered. The patient understood that results cannot be guaranteed. The procedure is indicated and risks are acceptable. Consent was obtained. Timeout: [place] protocol timeout verification performed. PROCEDURE: Estimated blood loss: 0 mL. Fluoroscopy time: 0.10 minutes. A total of 6 images were sent to PACS. CONTRAST: Contrast: OMNIPAQUE 180 (LOCM), 15 milliliter, Epidural FINDINGS: After the consent was obtained and time out was performed, the patient was prepped and draped in the usual sterile fashion. Utilizing fluoroscopic guidance, L2-3 interspace was selected for the procedure. 1 percent lidocaine was used for local anesthesia. A 20 gauge needle was placed into the subarachnoid space under fluoroscopic guidance. The location of the needle was confirmed by lateral projection prior to injection of the contrast. Approximately 15 mL of Omnipaque 180 was injected and presence of the contrast in the intrathecal space was documented by AP, lateral, and bilateral obliques views. The patient tolerated the procedure well and was sent for CT lumbar myelogram. IMPRESSION: Successful lumbar spine myelogram. Please see separate CT lumbar spine report for detailed findings. Approved by:Kristine Singleton10/13/2019 10:58 AM. I, Fredy Salmeron,have reviewed the imagers and reports Electronically signed: Fredy Salmeron. Transcribed by: [email or web address], User Resident: KRISTINE BALLARD Electronically Signed by: FREDY SALMERON @ 10/13/2019 06:58 PM I personally read this/these film(s) with this resident Normal [facility] Comment on above: Order Comment: , , = ========= , Ordering Provider - JASEN HOWARD MD , PROTHROMBIN TIMEon 0 INR Coag (PPP) [Relative time] 1.05 {INR} Normal 0.91-1.16 [facility] Comment on above: Result Comment: ACCC P RECOMMENDED INR FOR WARFARIN THERAPY --------- ------- CONDITION INR PROPHYLAXIS OF VENOUS THROMBOSIS 2-3 (HIGH-RISK SURGERY) TREATMENT OF VENOUS THROMBOSIS 2-3 TREATMENT OF PULMONARY EMBOLISM 2-3 PREVENTION OF SYSTEMIC EMBOLISM: 2-3 ACUTE MYOCARDIAL INFARCTION TISSUE HEART VALVES VALVULAR HEART DISEASE ATRIAL FIBRILLATION RECURRENT SYSTEMIC EMBOLISM MECHANICAL HEART VALVE 2.5-3.5 FROM: ORAL ANTICOAGULANTS. MECHANISM OF ACTION, CLINICAL EFFECTIVENESS, AND OPTIMAL THERAPEUTIC RANGE. CHEST 1995;108:231S-246S. Performed By: #### 5 [id number], [id number] #### [address] [place] [address], [facility] PT Coag (PPP) [Time] 13.7 s Normal 12.3-14.8 [facility] Comment on above: Result Comment: ALL RESULTS MUST BE INTERPRETED WITH RESPECT TO BLOOD DRAWING ARTIFACT OR DILUTION ERROR OF ANTICOAGULANT AT THE TIME OF SAMPLING. Performed By: #### 5 [id number], [id number] #### [facility] [address] [place] [address], [facility] Laboratory Studieson 019 HBV surface Ab Ql (S) Non reactive [facility] Work Phone: Comment on above: Non Reactive: Incons istent with immunity, less than 10 mIU/mL Reactive: Consistent with immunity, greater than 9.9 mIU/mL HBV surface Ag IA Ql Negative [facility] Work Phone: Comment on above: Performed at: [address] [id number] Embedded Linux Developer: Arnold Cabral PhD, Phone: [phone] HCV Ab Signal/Cutoff IA RelACnc 0.1 s/co ratio [facility] Work Phone: Hepatitis C Antibody Comment See comment [facility] Work Phone: Comment on above: Non reactive HCV ant ibody screen is consistent with no HCV infection, unless recent infection is suspected or other evidence exists to indicate HCV infection. HIV 1+2 Ab IA Ql Nonreactive [facility] Work Phone: Laboratory Studieson 018 Glucose mass conc Glu2: cleaned meter [facility] Work Phone: Glucose mass conc 121 mg/dL [facility] Work Phone: Comment on above: Random Glucose Refer ence Range is dependent on time and content of last meal. Glucose of more than 200 mg/dL in a nonstressed, ambulatory subject supports the diagnosis of Diabetes Mellitus. Calcium mass conc 8.7 mg/dL 8.2-10.2 [facility] Work Phone: Chloride molar conc 102 mmol/L 95-114 [facility] Work Phone: CO2 molar conc 27.5 mmol/L 22.0-30.0 [facility] Work Phone: Creatinine mass conc 1.08 mg/dL 0.64-1.27 [facility] Work Phone: GFR/1.73 sq M predicted among blacks MDRD vol rate/area (S/P/Bld) mL/min/{1.73_m2} [facility] Work Phone: Comment on above: GFR estimated refere nce range: According to KDOQI guidelines, <60 ml/min/1.73m2 is sufficient to diagnose a patient with chronic kidney disease. GFR/1.73 sq M predicted among non-blacks MDRD vol rate/area (S/P/Bld) mL/min/{1.73_m2} [facility] Work Phone: Glucose mass conc 86 mg/dL 70-100 [facility] Work Phone: Comment on above: ADA recommended refe rence range Random Glucose Reference Range is dependent on time and content of last meal. Glucose of more than 200 mg/dL in a nonstressed, ambulatory subject supports the diagnosis of Diabetes Mellitus. Pharmacy Creatinine Clearance (Chem 88.1842 [facility] Work Phone: Potassium molar conc 3.5 mmol/L 3.5-5.1 [facility] Work Phone: Sodium molar conc 139 mmol/L 136-146 [facility] Work Phone: Urea nitrogen mass conc 10 mg/dL 9-23 [facility] Work Phone: Laboratory Studieson 06-05-2 018 Basophils #/vol (Bld) 0.1 10*3/uL 0.0-0.2 [facility] Work Phone: Basophils/100 WBC (Bld) 1.0 % [facility] Work Phone: Eosinophils #/vol (Bld) 0.2 10*3/uL 0.0-0.45 [facility] Work Phone: Eosinophils/100 WBC (Bld) 2.8 % [facility] Work Phone: Erythrocyte distribution width Ratio (RBC) 13.9 % 12.0-14.8 [facility] Work Phone: Hematocrit Volume Fraction (Bld) 36.3 % Low 38.8-50.0 [facility] Work Phone: Hemoglobin mass conc (Bld) 12.5 g/dL Low 13.0-17.0 [facility] Work Phone: Lymphocytes #/vol (Bld) 1.6 10*3/uL 1.00-4.8 [facility] Work Phone: Lymphocytes/100 WBC (Bld) 23.7 % [facility] Work Phone: MCH Entitic mass (RBC) 28.9 pg 27.5-35.2 [facility] Work Phone: MCHC mass conc (RBC) 34.3 g/dL 32.5-35.6 [facility] Work Phone: MCV Entitic volume (RBC) 84.4 fL 83.5-101 [facility] Work Phone: Monocytes #/vol (Bld) 0.4 10*3/uL 0.0-0.8 [facility] Work Phone: Monocytes/100 WBC (Bld) 6.7 % [facility] Work Phone: Neutrophils #/vol (Bld) 4.4 10*3/uL 1.8-7.7 [facility] Work Phone: Neutrophils/100 WBC (Bld) 65.8 % [facility] Work Phone: Platelet mean volume Entitic volume (Bld) 10.3 fL High 6.6-10.1 [facility] Work Phone: Platelets #/vol (Bld) 199 10*3/uL 150-450 Fi [facility] Work Phone: RBC #/vol (Bld) 4.31 10*6/uL 3.90-5.60 [facility] Work Phone: WBC #/vol (Bld) 6.6 10*3/uL 4.1-10.5 [facility] Work Phone: Laboratory Studieson 018 Appearance Nom (U) Slightly cloudy Abnormal F [facility] Work Phone: Bacteria Auto Ql (U) None seen [facility] Work Phone: Bilirubin Ql (U) Negative [facility] Work Phone: Color Nom (U) Yellow [facility] Work Phone: Creatinine mass conc (U) 143.4 mg/dL [facility] Work Phone: Comment on above: No reference range e stablished Epithelial cells Auto #/area (Urine sed) Rare /HPF [facility] Work Phone: Glucose Automated test strip mass conc (U) Normal mg/dL [facility] Work Phone: Hemoglobin Automated test strip Ql (U) 1+ High [facility] Work Phone: Ketones mass conc (U) 1+ High [facility] Work Phone: Leukocyte esterase Automated test strip Ql (U) Negative [facility] Work Phone: Nitrite Automated test strip Ql (U) Negative [facility] Work Phone: pH (U) 5.5 [pH] 5.0-9.0 [facility] Work Phone: pH (U) [pH] 1.001-1.03 0 [facility] Work Phone: Protein mass conc (U) Negative [facility] Work Phone: RBC Auto #/area (Urine sed) 1-2 /HPF [facility] Work Phone: Sodium molar conc (U) 144.0 mmol/L F [facility] Work Phone: Comment on above: No reference range e stablished Urate crystals LM.HPF #/area (Urine sed) 3 /[HPF] [facility] Work Phone: Urobilinogen mass conc (U) Normal mg/dL [facility] Work Phone: WBC Auto #/area (Urine sed) None seen /HPF [facility] Work Phone: Albumin mass conc 2.7 g/dL Low 3.2-5.5 [facility] Work Phone: Albumin/Globulin mass ratio 0.8 {ratio} [facility] Work Phone: ALP enzyme act/vol 39 U/L 32-92 [facility] Work Phone: ALT No additional P-5'-P enzyme act/vol 14 U/L 10-60 [facility] Work Phone: AST enzyme act/vol 25 U/L 10-42 [facility] Work Phone: Bilirubin mass conc 0.6 mg/dL 0.3-1.2 [facility] Work Phone: Globulin mass conc (S) 3.6 g/dL Fi [facility] Work Phone: Protein mass conc 6.3 g/dL 6.1-7.9 [facility] Work Phone: Laboratory Studieson 018 T3 free mass conc 3.28 pg/mL 2.50-3.90 [facility] Work Phone: T4 free mass conc 0.95 ng/dL 0.61-1.12 [facility] Work Phone: Amphetamines Ql (U) Negative [facility] Work Phone: Barbiturates Ql (U) Negative [facility] Work Phone: Benzodiazepines Ql (U) Positive High [facility] Work Phone: Cannabinoids Screen Ql (U) Negative [facility] Work Phone: Comment on above: These are unconfirme d results and should not be used for legal purposes. Drug Cut-Off Concentration: AMPH 1000 ng/mL EWA 200 ng/mL JOHN 200 ng/mL COCM 300 ng/mL OP 300 ng/mL PCP 25 ng/mL THC 20 ng/mL Cocaine Ql (U) Negative [facility] Work Phone: Opiates Ql (U) Positive High [facility] Work Phone: Phencyclidine Ql (U) Negative [facility] Work Phone: Ammonia mass conc (Unsp spec) 20 umol/L 11-35 [facility] Work Phone: Bilirubin.direct mass conc 0.2 mg/dL 0.0-0.4 [facility] Work Phone: Bilirubin.indirect mass conc 0.8 mg/dL [facility] Work Phone: Cobalamin (Vitamin B12) mass conc 365 pg/mL 180-914 [facility] Work Phone: Folate mass conc 12.4 ng/mL [facility] Work Phone: Comment on above: Folate reference ran ge: >5.9 ng/ml The WHO technical consultation on folate and vitamin b12 deficiencies has determined that folate concentrations less than 4 ng/ml are considered deficient. Magnesium molar conc (Unsp spec) 1.7 mg/dL 1.6-2.6 [facility] Work Phone: Thyrotropin Qn 0.20 uIU/mL Low 0.45-5.33 [facility] Work Phone: Comment on above: Revised TSH Assay This assay is standardized to the World Health Organization International Standard for human TSH. Please note Reference Intervals have changed. Laboratory Studieson 018 Casts LM Nom (Urine sed) N/A [facility] Work Phone: Epithelial cells.renal LM.HPF #/area (Urine sed) Rare /HPF [facility] Work Phone: Hyaline casts Auto #/vol (U) 20-49 /LPF High [facility] Work Phone: Lactate molar conc (U) 0.9 mmol/L [facility] Work Phone: CK enzyme act/vol 107 U/L 22-269 [facility] Work Phone: Phosphate mass conc 5.0 mg/dL High 2.5-4.6 [facility] Work Phone: Laboratory Studieson 017 Glucose mass conc 122 mg/dL [facility] Work Phone: Comment on above: RANDOM GLUCOSE REFER ENCE RANGE IS DEPENDENT ON TIME AND CONTENT OF LAST MEAL.GLUCOSE OF MORE THAN 200MG/DL IN A NONSTRESSED,AMBULATORY SUBJECT SUPPORTS THE DIAGNOSIS OF DIABETES MELLITUS. Laboratory Studieson 017 Basophils #/vol (Bld) 0.1 10*3/uL 0.0-0.2 [facility] Work Phone: Basophils/100 WBC (Bld) 0.9 % [facility] Work Phone: Calcium mass conc 8.6 mg/dL 8.2-10.2 [facility] Work Phone: Chloride molar conc 109 mmol/L 95-114 [facility] Work Phone: CK enzyme act/vol 355 U/L High 22-269 [facility] Work Phone: CO2 molar conc 19.5 mmol/L Low 22.0-30.0 [facility] Work Phone: Creatinine mass conc 0.99 mg/dL 0.64-1.27 [facility] Work Phone: Eosinophils #/vol (Bld) 0.20 10*3/uL 0.0-0.45 [facility] Work Phone: Eosinophils/100 WBC (Bld) 3.3 % [facility] Work Phone: Erythrocyte distribution width Ratio (RBC) 13.8 % 12.0-14.8 [facility] Work Phone: Estimated GFR (Non- > 60 [facility] Work Phone: GFR/1.73 sq M.predicted MDRD (S/P/Bld) [Vol rate/Area] mL/min/{1.73_m2} [facility] Comment on above: GFR estimated refere nce range: According to KDOQI guidelines, <60 ml/min/1.73m2 is sufficient to diagnose a patient with chronic kidney disease. GFR/1.73 sq M.predicted MDRD vol rate/area mL/min/{1.73_m2} [facility] Work Phone: Comment on above: GFR estimated refere nce range: According to KDOQI guidelines, <60 ml/min/1.73m2 is sufficient to diagnose a patient with chronic kidney disease. Glucose mass conc 94 mg/dL 70-100 [facility] Work Phone: Comment on above: ADA RECOMMENDED REFE RENCE RANGE Hematocrit Volume Fraction (Bld) 41.5 % 38.8-50.0 [facility] Work Phone: Hemoglobin mass conc (Bld) 14.1 g/dL 13.0-17.0 [facility] Work Phone: Lymphocytes #/vol (Bld) 2.6 10*3/uL 1.00-4.8 [facility] Work Phone: Lymphocytes/100 WBC (Bld) 40.3 % [facility] Work Phone: MCH Entitic mass (RBC) 30.4 pg 27.5-35.2 [facility] Work Phone: MCHC mass conc (RBC) 34.1 g/dL 32.5-35.6 [facility] Work Phone: MCV Entitic volume (RBC) 89.2 fL 83.5-101 [facility] Work Phone: Monocytes #/vol (Bld) 0.4 10*3/uL 0.0-0.8 [facility] Work Phone: Monocytes/100 WBC (Bld) 6.4 % [facility] Work Phone: Neutrophils #/vol (Bld) 3.1 10*3/uL 1.8-7.7 [facility] Work Phone: Neutrophils (%) (Auto) 49.1 % [facility] Work Phone: Neutrophils/100 WBC (Bld) 49.1 % [facility] Platelet mean volume Entitic volume (Bld) 10.7 fL High 6.6-10.1 [facility] Work Phone: Platelets #/vol (Bld) 160 10*3/uL 150-450 [facility] Work Phone: Potassium molar conc 3.4 mmol/L Low 3.5-5.1 [facility] Work Phone: RBC #/vol (Bld) 4.65 10*6/uL 3.90-5.60 [facility] Work Phone: Sodium molar conc 138 mmol/L 136-146 [facility] Work Phone: Urea nitrogen mass conc 7 mg/dL Low 9-23 [facility] Work Phone: WBC #/vol (Bld) 6.4 10*3/uL 4.1-10.5 [facility] Work Phone: Laboratory Studieson 017 Platelet Aggregation (ADP) 57.8 % 0-100 [facility] Work Phone: Comment on above: NO REFERENCE RANGE I S ESTABLISHED OR APPLICABLE Platelet Inhibition ADP 42.2 % 0-100 [facility] Work Phone: Comment on above: NO REFERENCE RANGE I S ESTABLISHED OR APPLICABLE TEG Max Amplitude (Citrated) 69.9 mm 50-70 [facility] Work Phone: TEG Max Amplitude (Rapid) 29.9 0-90 [facility] Work Phone: Comment on above: TEG MA A HAS NO REFE RENCE RANGE Thrombelastograph (TEG) Net G ADP 53.0 MM 0-90 [facility] Work Phone: Comment on above: TEG MA ADP HAS NO RE FERENCE RANGE Albumin mass conc 3.1 g/dL Low 3.2-5.5 [facility] Work Phone: Albumin/Globulin mass ratio 1.0 {ratio} [facility] Work Phone: ALP enzyme act/vol 44 U/L 32-92 [facility] Work Phone: ALT enzyme act/vol 18 U/L 10-60 [facility] Work Phone: AST enzyme act/vol 27 U/L 10-42 [facility] Work Phone: Bilirubin Ql (U) 0.6 mg/dL 0.3-1.2 [facility] Work Phone: Bilirubin.direct mass conc 0.1 mg/dL 0.0-0.4 [facility] Work Phone: Bilirubin.indirect mass conc (Body fld) 0.5 mg/dL [facility] Work Phone: Cholesterol in HDL mass conc 26 mg/dL Low 29-71 [facility] Work Phone: Comment on above: HDL CHOL ATP-III CLA SSIFICATION Cardiovascular Risk HDL > or equal to 60 mg/dL Low HDL < 40 mg/dL High Cholesterol mass conc 150 mg/dL 140-200 [facility] Work Phone: Comment on above: CHOL less than 200 m g/dL Low risk CHOL 201-239 mg/dL Borderline risk CHOL 240 mg/dL and greater High risk Cholesterol mass conc 30 mg/dL [facility] Work Phone: Cholesterol.total/Chol esterol in HDL mass ratio 5.8 {ratio} [facility] Work Phone: Globulin mass conc (S) 3.2 g/dL [facility] Work Phone: LDL Cholesterol, Calculated 93 mg/dL 0-100 [facility] Work Phone: Comment on above: LDL ATP III CLASSIFI CATION LDL less than 100 mg/dL Optimal LDL 100-129 mg/dL Near or above optimal LDL 130-159 mg/dL Borderline high LDL 160-189 mg/dL High LDL greater than 189 mg/dL Very high Protein mass conc 6.3 g/dL 6.1-7.9 [facility] Work Phone: Thyrotropin Qn 1.12 uIU/mL 0.45-5.33 [facility] Work Phone: Comment on above: Revised TSH Assay This assay is standardized to the World Health Organization International Standard for human TSH. Please note Reference Intervals have changed. Triglyceride mass conc 153 mg/dL High 35-149 [facility] Work Phone: Comment on above: TRIG ATP III CLASSIF ICATION TRIG less than 150 mg/dL Normal TRIG 150-199 mg/dL Borderline high TRIG 200-500 mg/dL High TRIG greater than 500 mg/dL Very high Standard traceable to the Center for Disease Conrtrol and Prevention (CDC) test method. Laboratory Studieson 017 Glucose mass conc Glu2: cleaned meter [facility] Work Phone: Ammonia mass conc (P) 19 umol/L 11-35 [facility] Work Phone: Cobalamin (Vitamin B12) mass conc 202 pg/mL 180-914 [facility] Work Phone: Folate 10.7 ng/mL [facility] Work Phone: Comment on above: FOLATE REFERENCE RAN GE: >5.9 ng/mL The WHO Technical Consultation on folate and vitamin B12 deficiencies has determined that folate concentrations less than 4 ng/mL are considered deficient. Amphetamines Ql (U) Negative [facility] Work Phone: Appearance Nom (U) Clear [facility] to [facility] Work Phone: Bacteria LM.HPF #/area (Urine sed) None seen [facility] Work Phone: Benzodiazepines Ql (U) Positive High [facility] Work Phone: Bilirubin Ql (U) Negative [facility] Work Phone: Cocaine Ql (U) Negative [facility] Work Phone: Color Nom (U) Yellow [facility] Work Phone: Epithelial cells.squamous LM.HPF #/area (Urine sed) 5-9 /hpf High [facility] Work Phone: Glucose mass conc (U) 250 mg/dL High [facility] Work Phone: Hyaline casts LM Ql (Urine sed) 0-8 /lpf [facility] Work Phone: Ketones Ql (U) Trace High [facility] Work Phone: Leukocyte esterase Test strip Ql (U) Negative [facility] Work Phone: Nitrite Ql (U) Negative [facility] Work Phone: Opiates Ql (U) Negative [facility] Work Phone: pH (U) 5.0 [pH] 5.0-9.0 [facility] Work Phone: Phencyclidine Ql (U) Negative [facility] Work Phone: Protein Ql (U) Negative [facility] Work Phone: RBC #/vol (U) 50-100 /hpf High [facility] Work Phone: Specific gravity Relative Density (U) 1.039 High 1.001-1.03 0 [facility] Work Phone: Urine Barbiturates Screen Negative [facility] Work Phone: Urine Collection Type Type [facility] Work Phone: Comment on above: CATHETERIZED Urine Drug Screen Comment See comment [facility] Work Phone: Comment on above: THESE ARE UNCONFIRME D RESULTS AND SHOULD NOT BE USED FOR LEGAL PURPOSES. DRUG CUT-OFF CONCENTRATION: AMPH 1000 ng/mL EWA 200 ng/mL JOHN 200 ng/mL COCM 300 ng/mL OP 300 ng/mL PCP 25 ng/mL THC 20 ng/mL Urine Marijuana (THC) Screen Negative [facility] Work Phone: Urine Occult Blood 3+ High [facility] Work Phone: Urine Transitional Epithelial Cells 3-4 /hpf High [facility] Work Phone: Urobilinogen Qn (U) Normal mg/dL [facility] Work Phone: WBC #/vol (U) 0-1 /hpf [facility] Work Phone: Bedside Ionized Calcium (Deepti) 1.22 mmol/L 1.12-1.32 [facility] Work Phone: Bedside Total CO2 23 mmol/L 23-29 [facility] Work Phone: Chloride molar conc 110.0 mmol/L High 98-109 [facility] Work Phone: Creatinine mass conc 1.2 mg/dL 0.6-1.3 [facility] Work Phone: Comment on above: ER/ESD PHYSICIAN IS NOTIFIED/SHOWN ALL ISTAT RESULTS. CRITICAL VALUES MAY BE CONFIRMED BY LABORATORY TESTING IF DEEMED NESCESSARY BY ER ATTENDING DOCTOR Glucose mass conc 135 mg/dL High 70-105 [facility] Work Phone: Hematocrit Volume Fraction (Bld) 48.0 % 38.0-51.0 [facility] Work Phone: Hemoglobin mass conc (Bld) 16.3 g/dL 12.0-17.0 [facility] Work Phone: Potassium molar conc 4.7 mmol/L 3.5-4.9 [facility] Work Phone: Sodium molar conc 144 mmol/L 138-146 [facility] Work Phone: Urea nitrogen mass conc 15 mg/dL 8-26 [facility] Work Phone: Amylase enzyme act/vol 39 U/L 28-100 [facility] Work Phone: CK.MB mass conc 9.5 ng/mL High 0.6-6.3 [facility] Work Phone: Creatine Kinase MB Relative Index 1.5 0.00-2.50 [facility] Work Phone: Ethyl Alcohol Level < 5 mg/dL [facility] Work Phone: Glucose mass conc 140 mg/dL High 70-100 [facility] Work Phone: Comment on above: RANDOM GLUCOSE REFER ENCE RANGE IS DEPENDENT ON TIME AND CONTENT OF LAST MEAL.GLUCOSE OF MORE THAN 200MG/DL IN A NONSTRESSED,AMBULATORY SUBJECT SUPPORTS THE DIAGNOSIS OF DIABETES MELLITUS. Lipase enzyme act/vol 22.0 U/L 22-51 [facility] Work Phone: Percent Ethyl Alcohol < 0.005 % [facility] Work Phone: Troponin I.cardiac mass conc ng/mL 0-0.02 [facility] Work Phone: Comment on above: DAMARIS PR Cut off value > or equal to 0.03 ng/mL in conjunction with clinical conditions of myocardial infarction. (www.escardio.org/guidelines) Glucose mass conc 134 mg/dL [facility] Work Phone: Hemoglobin A1c/Hemoglobin.total mass fraction (Bld) 6.3 % High 4.3-5.6 [facility] Work Phone: Comment on above: Increased risk for d iabetes: 5.7 - 6.4 Diabetes: >6.4 Glycemic control for adults with diabetes: <7.0 Vital Signs Date Time Vital Sign Value Performing Clinician Facility 11-05-2022 14:30-0500 Diastolic blood pressure 72 mm[Hg] [address] Other [facility] Other 11-05-2022 14:30-0500 SaO2% (BldA) [Mass fraction] 97 % Benson Mcdowellky Other [facility] Other 11-05-2022 14:30-0500 Systolic blood pressure 118 mm[Hg] [address] Other [facility] Other 10-18-2022 14:00-0500 Body weight 96.[address] Other [facility] Other 10-18-2022 14:00-0500 Diastolic blood pressure 64 mm[Hg] [address] Other [facility] Other 10-18-2022 14:00-0500 SaO2% (BldA) [Mass fraction] 98 % Benson Domingo Other [facility] Other 10-18-2022 14:00-0500 Systolic blood pressure 120 mm[Hg] Benson Mcdowellky Other [facility] Other 07-20-2022 16:00-0500 Body temperature 97.4 [degF] MD Genesis Reynolds Work Phone: [facility] 07-20-2022 16:00-0500 Diastolic blood pressure 72 mm[Hg] MD Genesis Reynolds Work Phone: [facility] 07-20-2022 16:00-0500 Heart rate 61 /min MD Genesis Reynolds Work Phone: [facility] 07-20-2022 16:00-0500 Respiratory rate 16 /min MD Genesis Reynolds Work Phone: [facility] 07-20-2022 16:00-0500 SaO2% (BldA) [Mass fraction] 98 % MD Genesis Reynolds Work Phone: [facility] 07-20-2022 16:00-0500 Systolic blood pressure 159 mm[Hg] MD Genesis Reynolds Work Phone: [facility] 07-20-2022 06:00-0500 Body weight 95.3 kg MD Genesis Reynolds Work Phone: [facility] 07-18-2022 11:22-0500 Body height 177.8 cm MD Genesis Reynolds Work Phone: [facility] 07-17-2022 22:14-0500 Body height 177.8 cm MD Genesis Reynolds Work Phone: [facility] 07-17-2022 22:14-0500 Body temperature 97.5 [degF] MD Genesis Reynolds Work Phone: [facility] 07-17-2022 22:14-0500 Body weight 95.9 kg MD Genesis Reynolds Work Phone: [facility] 07-17-2022 22:14-0500 Diastolic blood pressure 87 mm[Hg] MD Genesis Reynolds Work Phone: [facility] 07-17-2022 22:14-0500 Heart rate 74 /min MD Genesis Reynolds Work Phone: [facility] 07-17-2022 22:14-0500 Respiratory rate 16 /min MD Genesis Reynolds Work Phone: [facility] 07-17-2022 22:14-0500 SaO2% (BldA) [Mass fraction] 99 % MD Genesis Reynolds Work Phone: [facility] 07-17-2022 22:14-0500 Systolic blood pressure 180 mm[Hg] MD Genesis Reynolds Work Phone: [facility] 02-13-2018 14:12-0400 Body Temperature 98 [degF[facility]-13-2018 14:12-0400 BP Diastolic 74 mm[Hg] [facility] 02-13-2018 14:12-0400 BP Systolic 113 mm[Hg] [facility] 02-13-2018 14:12-0400 Pulse Oximetry 95 % [facility] 02-13-2018 14:12-0400 Respiratory Rate 18 /min [facility] 02-11-2018 22:00-0400 Pulse (Heart Rate) 73 /min [facility] Weight Bro Aj [facility] NEGATED: Highlighted row BMI (Body Mass Index) Bro [facility] NEGATED: Highlighted row BMI (Body Mass Index) [facility]: Highlighted row Height Bro Aj [facility] NEGATED: Highlighted row [facility] Encounters Encounter Date Encounter Type Care Provider Facility Start: 04-26-2023 End: 04-27-2023 ambulatory JUDY HURT [facility] Start: 04-25-2023 End: 04-26-2023 Emergency department patient visit BRO SANFORD [facility] Start: 04-19-2023 ambulatory Dan[place]ar Park Abigail acility:[facility] Start: 01-17-2023 End: 01-17-[address] GENESIS REYNOLDS . Facility:[facility] Start: 12-06-2022 End: 12-06-[address] Other [facility] Other Start: 12-06-[address] [facility] Start: 11-15-2022 End: 11-17-2022 Evaluation and management of inpatient DR GENESIS REYNOLDS . Facility:[facility] Start: 11-13-2022 End: 11-13-[address] Other [facility] Other Start: 11-13-[address] [facility] Start: 11-05-2022 End: 11-05-[address] Other [facility] Other Start: 11-05-2022 Office outpatient vi sit [address] [facility] Start: 11-01-2022 End: 11-01-2022 ambulatory Genesis Reynolds Facility:[facility] Start: 11-01-2022 End: 11-01-2022 ambulatory MD Genesis Reynolds Work Phone: [facility] Work Phone: Start: 11-01-2022 End: 11-01-2022 Patient encounter procedure MD Genesis Reynolds Work Phone: [facility] [place] Work Phone: Start: 10-26-2022 End: 10-27-[address] GENESIS REYNOLDS . Facility:[facility] Start: 10-25-2022 (PROC) PROCEDURE [address] [facility] Domo [facility] Start: 10-25-2022 End: 10-26-[address] GENESIS REYNOLDS . [facility] [employer] Other Start: 10-18-2022 End: 10-18-[address] Other [facility] [employer] Other Start: 10-18-2022 Office outpatient ne w 45 minutes Benson Domingo [facility] Start: 10-18-2022 Telephone encounter Benson Mcdowellky [facility] Start: 08-22-2022 ambulatory Ms. Lilia Orourke Facility: Start: 08-10-2022 End: 08-10-[address] GENESIS REYNOLDS . Facility:[facility] Start: 08-04-2022 End: 08-04-[address] GENESIS REYNOLDS . Facility:[facility] Start: 07-20-2022 ambulatory Mourhaf Traboulssi Faci lity:[id number] Start: 07-19-2022 ambulatory Mourhaf Traboulssi Faci lity:[id number] Start: 07-18-2022 ambulatory Mourhaf Traboulssi Faci [facility]ity:[facility] Start: 07-17-2022 ambulatory Mourhaf Traboulssi Faci lity:[id number] Start: 07-17-2022 End: 07-20-2022 Evaluation and management of inpatient MD Genesis Reynolds Work Phone: [facility] Start: 07-17-2022 End: 07-20-2022 observation encounter MD Genesis Reynolds Work Phone: [facility] Work Phone: Start: 07-15-2022 End: 07-16-[address] GENESIS REYNOLDS . Facility:[facility] Start: 06-21-2022 End: 06-22-[address] GENESIS REYNOLDS . Facility:[facility] Start: 05-13-2022 End: 05-16-2022 Evaluation and management of inpatient DR GENESIS REYNOLDS . Facility:[facility] Start: 05-07-[address] GENESIS REYNOLDS . Facili ty:[facility] Start: 12-17-2019 Preoperative state MD Genesis Reynolds Work Phone: [facility] Start: 12-24-2018 End: 12-24-2018 [facility] Start: 02-08-2018 End: 02-13-2018 [facility] Start: 01-12-2018 End: 01-17-2018 [facility] Start: 04-02-2017 End: 04-05-2017 [facility] Start: 06-09-2006 End: 07-09-2006 Discharged [facility] Start: 04-09-2006 End: 05-09-2006 [facility] Start: 03-09-2006 End: 04-08-2006 Discharged Recurring Bro [facility] Start: 02-22-2006 End: 03-08-2006 [facility] Start: 02-10-2006 End: 02-14-2006 Evaluation [facility] management of [facility] Start: 05-10-2000 End: 06-08-2000 Discharged [facility] Start: 04-09-2000 End: 05-09-2000 Discharged Recurring Bro [facility] Start: 03-09-2000 End: 04-08-2000 Discharged Recurring Bro [facility] Start: 02-08-2000 End: 03-08-2000 Discharged Recurring Bro Nade[facility] Start: 01-08-2000 End: 02-07-2000 Discharged Recurring Bro [facility] Start: 12-09-1999 End: 02-07-2000 Discharged Recurring Bro Sanford [facility] Start: 11-08-1999 End: 12-08-1999 [facility]charged [facility] Start: 10-10-1999 End: 11-07-1999 [facility]charged [facility] Start: 09-09-1999 End: 10-09-1999 [facility]charged [facility] Start: 08-09-1999 End: 10-09-1999 Discharged [facility] Start: 07-10-1999 End: 08-08-1999 Discharged [facility] Start: 06-26-1999 End: 07-09-1999 Discharged [facility] Start: 03-29-1998 End: 03-29-1998 [facility] Start: 02-24-1987 End: 02-28-1987 Evaluation and management [facility] Start: 12-22-1986 End: 12-23-1986 [facility] Procedures Date Procedure Procedure Detail Performing Clinician Start: 11-01-2022 X-ray of lumbar spin e, four views MD Genesis Reynolds Work Phone: Start: 07-19-2022 Radionuclide myocard ial perfusion stress study MD Genesis Reynolds Work Phone: Start: 07-17-2022 Plain chest X-ray MD Eddy Work Phone: Start: 01-14-2018 Clostridium difficil e assay Bro Ashtonevie History of coronary artery bypass grafting Hx of CABG MD Genesis Reynolds Work Phone: SARS-CoV-2, Influenz a & RSV (PCR) MD Genesis Reynolds Work Phone: Plan of Treatment Date Care Activity Detail Author Start: 07-20-2022 [facility] Start: 07-18-2022 Lipid panel [facility] Start: 07-17-2022 Hospital admission [facility] Start: 07-17-2022 Physical therapy procedure [facility] Start: 07-17-2022 Referral to drapery and upholstery measurer [facility] Start: 07-17-2022 Referral to occupati onal therapist [facility] Start: 07-17-2022 [facility] Start: 07-17-2022 [facility] Bacteria identified in Blood by Culture Blood Culture [facility] Blood culture for ba cteria, including anaerobic screen Blood Culture [facility] Patient referral [facility] Work Phone: [facility] Payers Date Payer Category Payer Self-pay 1958 Medicare [id number] 1958 Unknown [id number] 1956 Unknown [id number] 2.16.84 [id number] 1956 Unknown [id number] 2.16.84 0.1.286779.3.579.2.593 1956 Unknown [id number] 2.16.84 0.1.988909.3.579.2.593 1956 Unknown [id number] 2.16.84 0.1.082840.3.579.2.593 1956 Unknown [id number] 2.16.84 0.1.191482.3.579.2.593 1956 Unknown [id number] 2.16.84 0.1.473928.3.579.2.593 1956 Unknown [id number] 2.16.84 0.1.960469.3.579.2.593 1956 Unknown [id number] 2.16.84 0.1.644049.3.579.2.593 1956 Unknown [id number] 2.16.84 0.1.721918.3.579.2.593 1956 Unknown [id number] 2.16.84 0.1.465469.3.579.2.593 1956 Unknown [id number] 2.16. 840.1.205190.3.579.2.356 1956 Unknown [id number] 2.16. 840.1.750408.3.579.2.356 1956 Unknown [id number] 2.16. 840.1.169814.3.579.2.356 1956 Unknown [id number] 2.16. 840.1.611285.3.579.2.356 1956 Unknown [id number] 2.16. 840.1.374708.3.579.2.356 1956 Unknown [id number] 2.16. 840.1.422140.3.579.2.356 1956 Unknown [id number] 2.16.8 40.1.917572.3.579.2.173 Unknown [id number] Unknown [facility] [id number] Unknown [id number] 2.16.8 40.1.357811.3.579.2.531 Unknown [id number] 2.16.8 40.1.163662.3.579.2.531 Social History Date Type Detail Facility Start: 07-17-2022 End: 07-18-2022 Tobacco smoking status NHIS Smoker (finding) [facility] Start: 1955 Sex Assigned At Male F [facility] Sex Assigned At Sex Assigned At Bir th [facility] [employer] Other Medical Equipment Procedure Code Equipment Code Equipment Origin al Text Equipment Identifier Dates [id number] Start: 12-24-2018 End: 04-11-2019 Glucose test strips Start : 12-24-2018 End: 04-10-2019 Glucose test strips Start : 12-24-2018 End: 04-10-2019 Glucose test strips Start : 12-24-2018 End: 04-10-2019 Goals Date Patient Goal Desired Activity /State Functional Status Date Assessment Result Facility 07-20-2022 Functional status Patient at Baseline [facility] Work Phone: Mental Status Date Assessment Result Facility 07-20-2022 Cognitive function Cognitive Sta tus Patient at Baseline [facility] Work Phone: Clinical Notes 2018 to 11-05-2022 Note Date & Type Note Facility 11-05-2022 Evaluation note Encounter Date Diagnosis Assessment Notes Oct, Failed back syndrome (ICD-10 - M96.1) 67 year old male here for follow up status post caudal epidural steroid injection with a Racz catheter and lysis of adhesions under fluoroscopic guidance. Patient reports minimal pain relief as well as improved walking, standing and daily functions following procedure. He voices continued complaints of low back pain with radiation down the right lower extremity to the knee. I recommend proceeding with a right transforaminal epidural steroid injection. Risks and benefits of procedure explained to patient; patient verbalizes understanding. Oct, Arthritis of lumbosacral spine (ICD-10 - M47.817) If his pain persists or worsens, we can consider lumbar facet medial branch nerve blocks in the future, if applicable. Oct, Sacroiliitis (ICD-10 - M46.1) If his pain persists or worsens, we can consider SI joint injections. Oct, Other chronic pain (ICD-10 - G89.29) Follow up after procedure. Bee Shield Other 02-09-2023 Evaluation note* Encounter Date Diagnosis Assessment Notes Treatment Notes Treatment Clinical Notes Oct, Failed back syndrome (ICD-10 - M96.1) 67 year old male here with complaints of low back pain with radiation down the posterior aspect of the right lower extremity to the knee. He states his pain started many years ago, becoming progressively worse. He is currently in physical therapy, he denies any relief of his symptoms from this so far. He reports multiple back surgeries. He notes the last back surgery approimately 10 years ago however he cant remember who the surgeon was in [place]. He presents with his today, both the patient and his are poor historians. He feels pain can negatively impact his daily activities and sleeping pattern. Prior to examining the patient, I independently reviewed office notes from referring provider, Dr Reynolds. Pertinent imaging of the lumbar spine was reviewed and discussed in detail with the patient which showed a fusion in place as well as arthritis and scar tissue below the fusion. History, physical examination and available images are consistent with failed back syndrome, lumbosacral spondylosis and sacroilitis. Anatomy of spine discussed in detail with patient in regards to patients condition. I recommend we proceed with a caudal epidural steroid injection with insertion of a Racz catheter under fluoroscopic guidance. Risks and benefits of procedure explained to patient; patient verbalizes understanding. In the meantime, I will order updated imaging of the lumbar spine to further evaluate his pain. Oct, Arthritis of lumbosacral spine (ICD-10 - M47.817) If his pain persists or worsens, we can consider lumbar facet MBB in the future, if applicable. Oct, Sacroiliitis (ICD-10 - M46.1) If his pain persists or worsens, we can consider lumbar facet MBB in the future, if applicable. Oct, Other chronic pain (ICD-10 - G89.29) He is encouraged to talk to his PCP and have clearance to hold Plavix for 7 days prior to proceeding with any procedures. Patient is requesting to have pain medication. I do not recommend to prescribe pain medication as this has not provided him with relief in the past. I will proceed with interventional options at this time. He is encouraged to continue with Dr Reynolds for medication. Patient and verbalize an understanding of this. Oct, Other Medical deci devon making shows a new problem to me with further workup planned or suggested with the potential for extensive treatment options that were considered with the most applicable given this patient's situation as noted above. Treatment options considered include a combination of physical therapy approaches, pharmacologic management, and interventional procedures. Those most applicable to the patient were discussed at this time. Risk of complications and/or morbidity and mortality is high given that acute and chronic pain poses a threat to life and bodily function if undertreated, poorly treated or with failure to maintain adequate treatment and timely followup. Given the serious and fluctuating nature of pain with extensive consideration for whenever pain changes, there always remains the possibility of prolonged functional impairment requiring constant patient reassessment and high-level medical decision making. The amount and complexity of data reviewed is high given that patient labs, radiology reports, and other test were obtained, reviewed and summarized as applicable from the physician portal and/or outside medical records. Pertinent positive and negative findings were considered in medical decision-making. Bee Shield Other 11-11-2022 Discharge summary Author Sang Bauer [facility] July 20, 2022 6:39pm Note Date/Time July 20, 2022 3:04pm [facility] [address] [place] [address] Discharge Summary Signed Patient: Taylor Mcclellan MR#: [id number] : 1955 Acct:[id number] Age/Sex: 66 / M Adm Date: 2 Loc: Room: [address] [place] [address]: Sang Bauer MD Copies to: MD Genesis Goetz MD~ Providers Date of Discharge: 07/20/22 Discharging Provider: Sang Bauer Primary Care Provider: Genesis Reynolds Consults: 07/17/22 18:33 Consult to Cardiology Routine Consult to Occupational Therapy Routine Consult to Physical Therapy Routine Discharge Diagnosis (1) Chest pain: (2) Coronary artery disease: (3) Hx of CABG: (4) Bipolar 1 disorder, depressed, severe: (5) Chronic back pain: Final Diagnosis Final Discharge Diagnosis: see above Summary Hospital Course Hospital course: Patient is a 66-year-old gentleman past medical history of CAD s/p CABG, hypertension, diabetes, hyperlipidemia, smoker was brought to the emergency department by his because of chest pain. Labs essentially normal. EKG showed no acute ischemic changes. Troponin within normal limits. Patient is otherwise saturating well on room air and is hemodynamically stable and did not have any chest pain since he came to the hospital. Cardiology was consulted dueto history of CABG with multiple risk factors. Echo obtained which showed normal ejection fraction with no significant valvular abnormality. Stress test done which showed no signs of ischemia. Patient remained chest pain-free duringthe hospital stay. Patient's family is not comfortable taking him home as patient had history of frequent falls. PT/OT evaluated the patient, recommendedSNF upon discharge. Patient is agreeable to go to SNF. Educated patient to be compliant with his medications after discharge, he verbalized understanding. Patient to follow-up with his physician as an outpatient. Educated him to go toER or call his physician symptoms recur or worsen, he verbalized understanding. Patient is being discharged today. Condition Condition at Discharge: Stable Time Spent with Patient Time spent providing/coordinating discharge services (# min): 45 Diagnostic Studies Completed and Pending Studies Pending studies at discharge: 07/17/22 18:00 Blood Culture Stat Preliminary micro results at discharge 07/17/22 18:00 Blood Culture - Preliminary Blood - Left Hand No Growth 2 Days 07/17/22 18:05 Blood Culture - Preliminary Blood - Left Antecubital No Growth 2 Days Labs on day of discharge: 07/20/22 11:33: POC Glucose 92 07/20/22 06:30: POC Glucose 146, POC Glucose Comment Glu2: cleaned meter 07/19/22 20:26: POC Glucose 127, POC Glucose Comment Glu2: cleaned meter 07/19/22 16:19: POC Glucose 108 Exam Physical Exam Vital Signs: Temp Pulse Resp BP Pulse Ox O2 Del Method 97.3 F L 64 16 149/81 H 95 Room Air 07/20/22 11:35 07/20/22 11:35 07/20/22 11:35 07/20/22 11:35 07/20/22 11:35 07/20/22 11:35 Narrative: General: Awake, alert, oriented x3 not in acute distress HEENT: Normocephalic, atraumatic, PERRLA, normal mucosa Cardiovascular: Regular rate and rhythm , S1-S2 heard, no murmurs or gallops Lungs: No wheezing or rhonchi heard Gastrointestinal: Soft, nontender, bowel sounds heard Extremities: No edema Neurological: no sensory or motor deficit Skin: Dry and warm, no rashes or lesions Psych: Normal mood and affect Discharge Plan Discharge Plan Patient Disposition: Intermediate Facility Activity: No Activity Restriction Diet: Low-Sodium and Low-Cholesterol Additional Instructions: SNF TO MANAGE: PT/OT to eval and treat Monitor VS per protocol--HTN Monitor FSBS Maintain high risk fall precautions Care to be managed by by SNF providers Prescriptions: New tramadol 50 mg tablet 50 mg PO Q8H PRN (Reason: pain) 3 Days Qty: 8 0RF Continued celecoxib 200 mg Capsule 200 mg PO DAILY atorvastatin 40 mg Tablet 40 mg PO DAILY carvedilol 12.5 mg Tablet 12.5 mg PO BID Rx Instructions: must administer with a meal/food ropinirole 1 mg Tablet 1 mg PO QHS PRN (Reason: Muscle Spasm) Rx Instructions: administer 1-3 hours before bedtime hydralazine 25 mg Tablet 25 mg PO TID divalproex 500 mg Tablet,Delayed Release (Dr/Ec) 500 mg PO BID acetaminophen 650 mg Tablet 650 mg PO Q4H PRN (Reason: pain) amitriptyline 50 mg Tablet 50 mg PO QHS lisinopril 10 mg Tablet 10 mg PO DAILY lamotrigine 100 mg Tablet 100 mg PO DAILY Rexulti 3 mg Tablet 3 mg PO 1XD citalopram 20 mg Tablet 20 mg PO DAILY buspirone 10 mg Tablet 10 mg PO BID bupropion HCl 150 mg tablet extended release 24 hr 150 mg PO 1XD Label Comments: TAKE 1 TABLET BY MOUTH ONCE DAILY aspirin [Aspirin Childrens] 81 mg Tablet,Chewable 81 mg PO DAILY clopidogrel [Plavix] 75 mg tablet 75 mg PO DAILY Discontinued hydrocodone-acetaminophen [[place]] 5-325 mg tablet 1 tab PO BID PRN (Reason: Pain) Qty: 0 0RF Other Ambulatory Orders: DME Home Medical Equipment (Routine) Timeframe: [id number] Location: Determined by Patient Ordered By: Sang Bauer Follow Up: Lilia Hopper APRN [Nurse Practitioner] - 08/22/22 10:30 am Documented By: Sang Bauer MD 07/20/22 1504 Signed By: <Electronically signed by Sang Bauer MD> 07/20/22 1839 [facility] Work Phone: 1(472) 798-696011-11-2022 Progress note Author Itzel Adams [facility] July 20, 2022 8:06am Note Date/Time July 20, 2022 8:06am [facility] [address] [place] [address] Cardiology Progress Note Signed Patient: Taylor Mcclellan SR MR#: [id number] : 1955 Acct:[id number] Age/Sex: 66 / M Adm Date: 2 Loc: Room: [address] [place] [address] Type: ADM INOo Attending Dr: Sang Bauer MD Copies to: ~ Date of Service: 07/20/2022 Subjective Interval history: Patient resting comfortably. Continue complain of back pain. No further chest pain. Results of stress test showed no evidence of ischemia and preserved LV systolic function Exam Physical Exam Vital Signs: Temp Pulse Resp BP Pulse Ox O2 Del Method 97.5 F L 71 16 130/75 95 Room Air 07/20/22 07:59 07/20/22 07:59 07/20/22 07:59 07/20/22 07:59 07/20/22 07:59 07/20/22 07:59 Eyes General: appearance normal, both eyes and all related structures Pupils: PERRL Neck Neck: normal visual inspection, supple and no lymphadenopathy noted Neck mass: No Thyroid: thyroid normal Carotids: normal carotid upstroke Chest Chest palpation & inspection: normal inspection of the chest Resp Effort & Inspection: normal respiratory effort Auscultation: clear to auscultation bilaterally Cardio Palpation: normal PMI Rate: regular rate Rhythm: regular rhythm Heart Sounds: S1 normal and S2 normal GI Palpation: soft and no hepatosplenomegaly Percussion: normal to percussion Auscultation: normal bowel sounds Extrem General: full ROM, capillary refill normal and no clubbing, cyanosis or edema Objective Labs CBC & Chem 7: 07/17/22 15:44 07/17/22 15:44 Labs: Laboratory Results - last 24 hr 07/19/22 07/19/22 07/19/22 13:33 16:19 20:26 POC Glucose 135 108 127 POC Glucose Comment Glu2: cleaned meter 07/20/22 06:30 POC Glucose 146 POC Glucose Comment Glu2: cleaned meter A&P - Cardiology (1) Chest pain: Assessment/Problem Details: Patient reported brief episode of chest pain. Cardiac enzyme and EKG appears usman negative. Patient admitted to severe distress due to severe back pain Code(s): R07.9 - Chest pain, unspecified Status: Acute (2) Coronary artery disease: Assessment/Problem Details: Patient report history of bypass surgery he think it is a single-vessel bypass done in [place] record is not available patient and his cannot remember which hospital he had his surgery at. He does not follow with cardiology Qualifiers: Coronary Disease-Associated Artery/Lesion type: ven[place] artery [place] vs. transplanted heart: ven[place] ir[place] heart Associated angina: without angina Qualified Code(s): I25.10 - Atherosclerotic heart disease of ven[place] ir[place] coronary artery without angina pectoris Code(s): I25.10 - Atherosclerotic heart disease of [place] ir[place] coronary artery without angina pectoris Status: Acute (3) Hx of CABG: Code(s): Z95.1 - Presence of aortocoronary bypass graft Status: Acute (4) Bipolar 1 disorder, depressed, severe: Code(s): F31.4 - Bipolar disorder, current episode depressed, severe, without psychotic features Status: Acute (5) Chronic back pain: Assessment/Problem Details: Patient reports severe back pain Code(s): M54.9 - Dorsalgia, unspecified; G89.29 - Other chronic pain Status: Chronic Plan 1. Continue home medication 2. Echocardiogram noted demonstrating normal LV systolic function 3. Stress test negative for ischemia or PR. Patient can be discharged home cardiac chew Documented By: Itzel Adams MD 07/20/22804 Signed By: <Electronically signed by MD Itzel Adams> 07/20/22805 [facility] Work Phone: 1([phone]) 622-406511-10-2022 Progress note Author Sang [facility] November 10th, 2022 4:57pm Note Date/Time July 19, 2022 4:57pm [facility] [address] [place] [address] Hospitalist Progress Note Signed Patient: Taylor Mcclellan SR MR#: [id number] : 1955 Acct:[id number] Age/Sex: 66 / M Adm Date: 2 Loc: 3T Room: [address] [place] [address] Type: ADM INOo Attending Dr: Sang Bauer MD Copies to: ~ Date of Service: 07/19/2022 Subjective Subjective Narrative: Patient seen and examined. Patient is comfortably sitting in chair having lunch. Denies any chest pain, shortness of breath, cough, fever and chills. Exam Physical Exam Vital Signs: Temp Pulse Resp BP Pulse Ox O2 Del Method 97.4 F L 64 18 129/76 94 L Room Air 07/19/22 16:00 07/19/22 16:00 07/19/22 16:00 07/19/22 16:00 07/19/22 16:00 07/19/22 16:00 Narrative: General: Awake, alert, oriented x3 not in acute distress HEENT: Normocephalic, atraumatic, PERRLA, normal mucosa Cardiovascular: Regular rate and rhythm , S1-S2 heard, no murmurs or gallops Lungs: No wheezing or rhonchi heard Gastrointestinal: Soft, nontender, bowel sounds heard Extremities: No edema Neurological: no sensory or motor deficit Skin: Dry and warm, no rashes or lesions Psych: Normal mood and affect Objective Lab Results CBC & Chem 7: 07/17/22 15:44 07/17/22 15:44 Microbiology Results Microbiology 07/17/22 18:00 Blood - Left Hand Blood Culture - Preliminary No Growth 1 Day 07/17/22 18:05 Blood - Left Antecubital Blood Culture - Preliminary No Growth 1 Day Meds Allergies and Active Meds Allergies chlordiazepoxide [From Librax (with clidinium)] Allergy (Verified 07/17/22 20:36) Unknown Reaction clidinium [From Librax (with clidinium)] Allergy (Verified 07/17/22 20:36) Unknown Reaction simvastatin [From Zocor] Allergy (Verified 07/17/22 20:36) Unknown Reaction venlafaxine [From Effexor] Allergy (Verified 07/17/22 20:36) Unknown Reaction atorvastatin [From Lipitor] Adverse Reaction (Verified 07/17/22 20:36) Unknown Reaction fentanyl Adverse Reaction (Verified 07/17/22 20:36) Unknown Reaction succinylcholine Adverse Reaction (Verified 07/17/22 20:36) Unknown Reaction Active Meds: Active Medications Generic Name Dose Route Start Last Admin Trade Name Freq PRN Reason Stop Dose Admin Acetaminophen 650 mg 07/17/22 18:33 07/19/22 16:17 Acetaminophen 325 Mg Tablet PO 07/17/23 18:32 650 mg Q6HR PRN Administration Pain Scale 1 - 3 or fever Albuterol 2 puff 07/17/22 18:36 Albuterol Hfa 60 Puff/8 Gram Inhaler INHALATION 07/17/23 18:35 Q4H PRN Shortness Of Breath Or Wheezing Amitriptyline HCl 50 mg 07/18/22 22:00 07/18/22 21:07 Amitriptyline 50 Mg Tablet PO 07/18/23 21:59 50 mg QHS AMISHA Administration Aspirin 81 mg 07/18/22 12:00 07/19/22 09:09 Aspirin 81 Mg Tab.Chew PO 07/18/23 11:59 81 mg DAILY AMISHA Administration Atorvastatin Calcium 40 mg 07/19/22 09:00 07/19/22 09:10 Atorvastatin 40 Mg Tablet PO 07/19/23 08:59 40 mg DAILY AMISHA Administration Brexpiprazole 3 mg 07/19/22 09:00 07/19/22 13:27 Brexpiprazole 1 Mg Tablet PO 07/19/23 08:59 3 mg DAILY AMISHA Administration Bupropion HCl 150 mg 07/18/22 12:00 07/19/22 09:09 Bupropion 150 Mg Tab.Er.24h PO 07/18/23 11:59 150 mg DAILY AMISHA Administration Buspirone HCl 10 mg 07/18/22 12:00 07/19/22 09:09 Buspirone 10 Mg Tablet PO 07/18/23 11:59 10 mg BID AMISHA Administration Carvedilol 12.5 mg 07/18/22 12:00 07/19/22 16:17 Carvedilol 12.5 Mg Tablet PO 07/18/23 11:59 12.5 mg BID.WITH.MEALS AMISHA Administration Celecoxib 200 mg 07/18/22 12:00 07/19/22 09:09 Celecoxib 200 Mg Capsule PO 07/18/23 11:59 200 mg DAILY AMISHA Administration Citalopram Hydrobromide 20 mg 07/18/22 12:00 07/19/22 09:09 Citalopram 20 Mg Tablet PO 07/18/23 11:59 20 mg DAILY AMISHA Administration Clopidogrel Bisulfate 75 mg 07/18/22 12:00 07/19/22 09:09 Clopidogrel Bisulfate 75 Mg Tablet PO 07/18/23 11:59 75 mg DAILY AMISHA Administration Divalproex Sodium 500 mg 07/18/22 12:00 07/19/22 09:09 Divalproex Sodium 500 Mg Tablet.Dr PO 07/18/23 11:59 500 mg BID AMISHA Administration Enoxaparin Sodium 40 mg 07/18/22 10:00 07/19/22 09:08 Enoxaparin 40 Mg/0.4 Ml Syringe SUBCUT 07/18/23 09:59 40 mg DAILY@10 AMISHA Administration Hydralazine HCl 10 mg 07/17/22 18:33 07/17/22 23:22 Hydralazine 20 Mg/Ml Vial IV-PUSH 07/17/23 18:32 10 mg Q4H PRN Administration Hypertension Hydralazine HCl 25 mg 07/18/22 14:00 07/19/22 13:31 Hydralazine 25 Mg Tablet PO 07/18/23 13:59 25 mg TID AMISHA Administration Insulin Aspart 0 units 07/17/22 22:00 07/19/22 16:19 Insulin Aspart 300 Units/3 Ml Insuln.Pen SUBCUT 07/17/23 21:59 Not Given TID.WM.HS [facility] Protocol Lamotrigine 100 mg 07/18/22 12:00 07/19/22 09:10 Lamotrigine 100 Mg Tablet PO 07/18/23 11:59 100 mg DAILY AMISHA Administration Lisinopril 10 mg 07/18/22 12:00 07/19/22 09:09 Lisinopril 10 Mg Tablet PO 07/18/23 11:59 10 mg DAILY AMISHA Administration Nitroglycerin 0.4 mg 07/17/22 18:33 Nitroglycerin 0.4 Mg Tab.Subl SUBLINGUAL 07/17/23 18:32 Q5M PRN Chest Pain Ondansetron HCl 4 mg 07/17/22 18:33 Ondansetron 4 Mg/2 Ml Vial IV-PUSH 07/17/23 18:32 Q8H PRN Nausea And Vomiting Ropinirole HCl 1 mg 07/18/22 11:07 07/18/22 21:06 Ropinirole 1 Mg Tablet PO 07/18/23 11:06 1 mg QHS PRN Administration Muscle Spasm Sodium Chloride 0 ml 07/17/22 15:40 07/18/22 21:10 Sodium Chloride 0.9 % 10 Ml Syringe IV-PUSH 07/17/23 15:39 10 ml PRN PRN Administration Flush Sodium Chloride 0 ml 07/19/22 09:00 Sodium Chloride 0.9 % 10 Ml Syringe IV-PUSH 07/19/23 08:59 PRN PRN Flush Tramadol HCl 50 mg 07/18/22 10:54 07/19/22 09:09 Tramadol 50 Mg Tablet PO 01/14/23 10:53 50 mg Q8H PRN Administration Pain A&P - Hospitalist Assessment/Plan (1) Chest pain: (2) Hx of CABG: (3) Coronary artery disease: (4) Diabetes mellitus: (5) HTN (hypertension): Plan Patient had no chest pain since he came in he is currently hemodynamically stable and is afebrile, saturating well on room air with no respiratory complaints Labs showed no leukocytosis with normal BUN/creatinine EKG showed no acute ischemic changes Troponin within normal limits Urine toxicology positive for benzos. Cardiology on board, scheduled for stress test Echocardiogram showed EF 60 to 65%, mild diastolic dysfunction with no significant valvular abnormality LDL 81, A1c 5.6 Fall precautions PT/OT DVT prophylaxis CODE STATUS full code Documented By: Sang Bauer MD 07/19/221653 Signed By: <Electronically signed by Sang Bauer MD> 07/19/221656 [facility] Work Phone: 1(874) 243-953911-10-2022 Progress note Author Itzel Adams [facility] July 19, 2022 8:35am Note Date/Time July 19, 2022 8:35am [facility] [address] [place] [address] Cardiology Progress Note Signed Patient: Taylor Mcclellan MR#: [id number] : 1955 Acct:[id number] Age/Sex: 66 / M Adm Date: 2 Loc: 3T Room: [address] [place] [address] Type: ADM INOo Attending Dr: Sang Bauer MD Copies to: ~ Date of Service: 07/19/2022 Subjective Interval history: Patient resting comfortably. Continue complain of back pain. No further chest pain Exam Physical Exam Vital Signs: Temp Pulse Resp BP Pulse Ox O2 Del Method 97.6 F 61 16 136/78 94 L Room Air 07/19/22 04:00 07/19/22 04:00 07/19/22 04:00 07/19/22 04:00 07/19/22 04:00 07/19/22 04:00 Eyes General: appearance normal, both eyes and all related structures Pupils: PERRL Neck Neck: normal visual inspection, supple and no lymphadenopathy noted Neck mass: No Thyroid: thyroid normal Carotids: normal carotid upstroke Chest Chest palpation & inspection: normal inspection of the chest Resp Effort & Inspection: normal respiratory effort Auscultation: clear to auscultation bilaterally Cardio Palpation: normal PMI Rate: regular rate Rhythm: regular rhythm Heart Sounds: S1 normal and S2 normal Extrem General: full ROM, capillary refill normal and no clubbing, cyanosis or edema Objective Labs CBC & Chem 7: 07/17/22 15:44 07/17/22 15:44 Labs: Laboratory Results - last 24 hr 07/17/22 07/18/22 07/18/22 15:44 11:04 16:39 POC Glucose 94 98 POC Glucose Comment Glu2: cleaned meter Estimat Average Glucose 114 Hemoglobin A1c 5.6 07/18/22 07/19/22 21:09 06:33 POC Glucose 119 90 POC Glucose Comment Glu2: cleaned meter Glu2: cleaned meter Estimat Average Glucose Hemoglobin A1c A&P - Cardiology (1) Chest pain: Assessment/Problem Details: Patient reported brief episode of chest pain. Cardiac enzyme and EKG appears usman negative. Patient admitted to severe distress due to severe back pain Code(s): R07.9 - Chest pain, unspecified Status: Acute (2) Coronary artery disease: Assessment/Problem Details: Patient report history of bypass surgery he think it is a single-vessel bypass done in [place] record is not available patient and his cannot remember which hospital he had his surgery at. He does not follow with cardiology Qualifiers: Coronary Disease-Associated Artery/Lesion type: [place] artery [place] vs. transplanted heart: [place] heart Associated angina: without angina Qualified Code(s): I25.10 - Atherosclerotic heart disease of [place] coronary artery without angina pectoris Code(s): I25.10 - Atherosclerotic heart disease of [place] coronary artery without angina pectoris Status: Acute (3) Hx of CABG: Code(s): Z95.1 - Presence of aortocoronary bypass graft Status: Acute (4) Bipolar 1 disorder, depressed, severe: Code(s): F31.4 - Bipolar disorder, current episode depressed, severe, without psychotic features Status: Acute (5) Chronic back pain: Assessment/Problem Details: Patient reports severe back pain Code(s): M54.9 - Dorsalgia, unspecified; G89.29 - Other chronic pain Status: Chronic Plan 1. Continue home medication 2. Echocardiogram noted demonstrating normal LV systolic function 3. Plan to proceed with Lexiscan myocardial fusion study Documented By: Itzel Adams MD 07/19/22833 Signed By: <Electronically signed by MD Itzel Adams> 07/19/22834 [facility] Work Phone: 1(336) 957-768411-09-2022 Progress note Author Sang Bauer [facility] July 18, 2022 3:24pm Note Date/Time July 18, 2022 3 :24pm [facility] [address] [place] [address] Hospitalist Progress Note Signed Patient: Taylor Mcclellan MR#: [id number] : 1955 Acct:[id number] Age/Sex: 66 / M Adm Date: 2 Loc: Room: [address] [place] [address] Type: ADM INOo Attending Dr: Sang Bauer MD Copies to: ~ Date of Service: 07/18/2022 Subjective Subjective Narrative: Patient seen and examined. Patient is comfortably sitting in chair having lunch. States that he slept well last night. He did not have any chest pain since he came to the hospital. Denies any shortness of breath, cough, fever andchills. Exam Physical Exam Vital Signs: Temp Pulse Resp BP Pulse Ox O2 Del Method 97.5 F L 62 18 158/87 H 98 Room Air 07/18/22 15:15 07/18/22 15:15 07/18/22 15:15 07/18/22 10:43 07/18/22 15:15 07/18/22 15:15 Narrative: General: Awake, alert, oriented x3 not in acute distress HEENT: Normocephalic, atraumatic, PERRLA, normal mucosa Cardiovascular: Regular rate and rhythm , S1-S2 heard, no murmurs or gallops Lungs: No wheezing or rhonchi heard Gastrointestinal: Soft, nontender, bowel sounds heard Extremities: No edema Neurological: no sensory or motor deficit Skin: Dry and warm, no rashes or lesions Psych: Normal mood and affect Objective Lab Results CBC & Chem 7: 07/17/22 15:44 07/17/22 15:44 Microbiology Results Microbiology 07/17/22 18:05 Nasopharyngeal SARS-CoV-2, Influenza & RSV (PCR) - Final Meds Allergies and Active Meds Allergies chlordiazepoxide [From Librax (with clidinium)] Allergy (Verified 07/17/22 20:36) Unknown Reaction clidinium [From Librax (with clidinium)] Allergy (Verified 07/17/22 20:36) Unknown Reaction simvastatin [From Zocor] Allergy (Verified 07/17/22 20:36) Unknown Reaction venlafaxine [From Effexor] Allergy (Verified 07/17/22 20:36) Unknown Reaction atorvastatin [From Lipitor] Adverse Reaction (Verified 07/17/22 20:36) Unknown Reaction fentanyl Adverse Reaction (Verified 07/17/22 20:36) Unknown Reaction succinylcholine Adverse Reaction (Verified 07/17/22 20:36) Unknown Reaction Active Meds: Active Medications Generic Name Dose Route Start Last Admin Trade Name Freq PRN Reason Stop Dose Admin Acetaminophen 650 mg 07/17/22 18:33 07/18/22 09:20 Acetaminophen 325 Mg Tablet PO 07/17/23 18:32 650 mg Q6HR PRN Administration Pain Scale 1 - 3 or fever Albuterol 2 puff 07/17/22 18:36 Albuterol Hfa 60 Puff/8 Gram Inhaler INHALATION 07/17/23 18:35 Q4H PRN Shortness Of Breath Or Wheezing Amitriptyline HCl 50 mg 07/18/22 22:00 Amitriptyline 50 Mg Tablet PO 07/18/23 21:59 QHS AMISHA Aspirin 81 mg 07/18/22 12:00 07/18/22 11:47 Aspirin 81 Mg Tab.Chew PO 07/18/23 11:59 81 mg DAILY AMISHA Administration Atorvastatin Calcium 40 mg 07/19/22 09:00 Atorvastatin 40 Mg Tablet PO 07/19/23 08:59 DAILY AMISHA Bupropion HCl 150 mg 07/18/22 12:00 07/18/22 11:47 Bupropion 150 Mg Tab.Er.24h PO 07/18/23 11:59 150 mg DAILY AMISHA Administration Buspirone HCl 10 mg 07/18/22 12:00 07/18/22 11:48 Buspirone 10 Mg Tablet PO 07/18/23 11:59 10 mg BID AMISHA Administration Carvedilol 12.5 mg 07/18/22 12:00 07/18/22 11:48 Carvedilol 12.5 Mg Tablet PO 07/18/23 11:59 12.5 mg BID.WITH.MEALS AMISHA Administration Celecoxib 200 mg 07/18/22 12:00 07/18/22 11:47 Celecoxib 200 Mg Capsule PO 07/18/23 11:59 200 mg DAILY AMISHA Administration Citalopram Hydrobromide 20 mg 07/18/22 12:00 07/18/22 11:48 Citalopram 20 Mg Tablet PO 07/18/23 11:59 20 mg DAILY AMISHA Administration Clopidogrel Bisulfate 75 mg 07/18/22 12:00 07/18/22 11:48 Clopidogrel Bisulfate 75 Mg Tablet PO 07/18/23 11:59 75 mg DAILY AMISHA Administration Divalproex Sodium 500 mg 07/18/22 12:00 07/18/22 11:47 Divalproex Sodium 500 Mg Tablet.Dr PO 07/18/23 11:59 500 mg BID AMISHA Administration Enoxaparin Sodium 40 mg 07/18/22 10:00 07/18/22 09:20 Enoxaparin 40 Mg/0.4 Ml Syringe SUBCUT 07/18/23 09:59 40 mg DAILY@10 AMISHA Administration Hydralazine HCl 10 mg 07/17/22 18:33 07/17/22 23:22 Hydralazine 20 Mg/Ml Vial IV-PUSH 07/17/23 18:32 10 mg Q4H PRN Administration Hypertension Hydralazine HCl 25 mg 07/18/22 14:00 Hydralazine 25 Mg Tablet PO 07/18/23 13:59 TID AMISHA Insulin Aspart 0 units 07/17/22 22:00 07/18/22 11:48 Insulin Aspart 300 Units/3 Ml Insuln.Pen SUBCUT 07/17/23 21:59 Not Given TID.WM.HS [facility] Protocol Lamotrigine 100 mg 07/18/22 12:00 07/18/22 11:47 Lamotrigine 100 Mg Tablet PO 07/18/23 11:59 100 mg DAILY AMISHA Administration Lisinopril 10 mg 07/18/22 12:00 07/18/22 11:47 Lisinopril 10 Mg Tablet PO 07/18/23 11:59 10 mg DAILY AMISHA Administration Nitroglycerin 0.4 mg 07/17/22 18:33 Nitroglycerin 0.4 Mg Tab.Subl SUBLINGUAL 07/17/23 18:32 Q5M PRN Chest Pain Non-Formulary Medication 3 mg 07/18/22 11:15 Brexpiprazole [Rexulti] PO 07/18/23 11:14 1XD [facility] Ondansetron HCl 4 mg 07/17/22 18:33 Ondansetron 4 Mg/2 Ml Vial IV-PUSH 07/17/23 18:32 Q8H PRN Nausea And Vomiting Regadenoson 0.4 mg 07/19/22 09:00 Regadenoson 0.4 Mg/5 Ml Syringe IV-PUSH 07/19/22 09:01 ONCE ONE Ropinirole HCl 1 mg 07/18/22 11:07 Ropinirole 1 Mg Tablet PO 07/18/23 11:06 QHS PRN Muscle Spasm Sodium Chloride 0 ml 07/17/22 15:40 Sodium Chloride 0.9 % 10 Ml Syringe IV-PUSH 07/17/23 15:39 PRN PRN Flush Sodium Chloride 0 ml 07/19/22 09:00 Sodium Chloride 0.9 % 10 Ml Syringe IV-PUSH 07/19/23 08:59 PRN PRN Flush Tramadol HCl 50 mg 07/18/22 10:54 07/18/22 11:47 Tramadol 50 Mg Tablet PO 01/14/23 10:53 50 mg Q8H PRN Administration Pain A&P - Hospitalist Assessment/Plan (1) Chest pain: (2) Hx of CABG: (3) Coronary artery disease: (4) Diabetes mellitus: (5) HTN (hypertension): Plan Patient had no chest pain since he came in he is currently hemodynamically stable and is afebrile, saturating well on room air with no respiratory complaints Labs showed no leukocytosis with normal BUN/creatinine Chest x-ray showed bilateral ground glass infiltrates. EKG showed no acute ischemic changes Troponin within normal limits Urine toxicology positive for benzos. Cardiology on board, plan for stress test. Echo pending LDL 81, A1c 5.6 Fall precautions PT/OT DVT prophylaxis CODE STATUS full code Documented By: Sang Bauer MD 07/18/221521 Signed By: <Electronically signed by Sang Bauer MD> 07/18/22 1524 [facility] Work Phone: 1([phone]) 181-690911-09-2022 History and physical note Author Sang Bauer [facility] July 18, 2022 3:22pm Note Date/Time July 17, 2022 6 :41pm [facility] [address] [place] [address] Hospitalist H&P Signed Patient: Taylor Mcclellan SR MR#: [id number] : 1955 Acct:[id number] Age/Sex: 66 / M Adm Date: 2 Loc: Room: [address] [place] [address] Type: ADM INOo Attending Dr: Sang Bauer MD Copies to: MD Genesis Goetz MD~ HPI DATE OF EXAMINATION: 07/17/22 CHIEF COMPLAINT: chest pain HISTORY OF PRESENT ILLNESS: Patient is a 66-year-old gentleman past medical history of CAD s/p CABG, hypertension, diabetes, hyperlipidemia, smoker was brought to the emergency department by his because of chest pain. Reportedly patient received 4 baby aspirin's before coming to the ED. Patient has been chest pain-free since he came to the hospital. Patient's is not at the bedside. He states that he did not have any chest pain and he was following his and wants to leave AMA. Per ED physician patient's was very concerned for the patient as he is not himself and she could not take care of him at home. Reportedly patient was taken to [facility] couple days ago when he was confused and was discharged home on lactulose though he does not have any history of cirrhosis. He was also sent home on antibiotics for possible pneumonia. Labs done in the ED today were essentially normal. EKG with no acute ischemic changes. Troponinx2 within normal limits. Chest x-ray showed ground glass interstitial prominence. Patient however is saturating well on room air and is afebrile withno cough. Explained him the importance of staying in the hospital overnight forobservation and further evaluation, he verbalized understanding and is agreeableto stay. States that he smokes 1 pack a day but does not drink alcohol. He denies any other symptoms Review of Systems Review of Systems All other systems reviewed & are negative unless noted below or in HPI PMFSH Vaccinated for COVID-19?: Yes Medical History (Updated 07/18/22 @ 11:44 by Itzel Adams MD) BPH (benign prostatic hyperplasia) Diabetes HLD (hyperlipidemia) HTN (hypertension) Surgical History Heart valve replaced History of common carotid artery stent placement Bilateral Previous back surgery S/P CABG (coronary artery bypass graft) Family History Mother Cardiac disease Epilepsy Brother Epilepsy Social History Smoking Status: Current every day smoker Tobacco Type: cigarettes (1 PPD) Substance Use Type: None Social History Comments: Patient and his live in a mobile home in [place]. Meds Medications and Allergies Allergies chlordiazepoxide [From Librax (with clidinium)] Allergy (Verified 07/17/22 20:36) Unknown Reaction clidinium [From Librax (with clidinium)] Allergy (Verified 07/17/22 20:36) Unknown Reaction simvastatin [From Zocor] Allergy (Verified 07/17/22 20:36) Unknown Reaction venlafaxine [From Effexor] Allergy (Verified 07/17/22 20:36) Unknown Reaction atorvastatin [From Lipitor] Adverse Reaction (Verified 07/17/22 20:36) Unknown Reaction fentanyl Adverse Reaction (Verified 07/17/22 20:36) Unknown Reaction succinylcholine Adverse Reaction (Verified 07/17/22 20:36) Unknown Reaction Home Medications aspirin 81 mg chewable tablet (Aspirin Childrens) 81 mg PO DAILY 01/12/18 [History Confirmed 07/17/22] clopidogrel 75 mg tablet (Plavix) 75 mg PO DAILY 12/17/19 [History Confirmed 07/17/22] hydrocodone 5 mg-acetaminophen 325 mg tablet ([place]) 1 tab PO BID PRN Pain #0 tabs 12/23/19 [Rx Confirmed 07/17/22] acetaminophen 650 mg tablet 650 mg PO Q4H PRN pain 07/17/22 [History Confirmed 07/17/22] amitriptyline 50 mg tablet 50 mg PO QHS 07/17/22 [History Confirmed 07/17/22] atorvastatin 40 mg tablet 40 mg PO DAILY 07/17/22 [History Confirmed 07/17/22] brexpiprazole 3 mg tablet (Rexulti) 3 mg PO 1XD 07/17/22 [History Confirmed 07/17/22] bupropion HCl 150 mg 24 hr tablet, extended release 150 mg PO 1XD 07/17/22 [History Confirmed 07/17/22] buspirone 10 mg tablet 10 mg PO BID 07/17/22 [History Confirmed 07/17/22] carvedilol 12.5 mg tablet 12.5 mg PO BID 07/17/22 [History Confirmed 07/17/22] celecoxib 200 mg capsule 200 mg PO DAILY 07/17/22 [History Confirmed 07/17/22] citalopram 20 mg tablet 20 mg PO DAILY 07/17/22 [History Confirmed 07/17/22] divalproex 500 mg tablet,delayed release 500 mg PO BID 07/17/22 [History Confirmed 07/17/22] hydralazine 25 mg tablet 25 mg PO TID 07/17/22 [History Confirmed 07/17/22] lamotrigine 100 mg tablet 100 mg PO DAILY 07/17/22 [History Confirmed 07/17/22] lisinopril 10 mg tablet 10 mg PO DAILY 07/17/22 [History Confirmed 07/17/22] ropinirole 1 mg tablet 1 mg PO QHS PRN Muscle Spasm 07/17/22 [History Confirmed 07/17/22] Exam Physical Exam Vital Signs: Temp Pulse Resp BP Pulse Ox O2 Del Method 98.1 F 73 16 151/64 H 98 Room Air 07/17/22 15:40 07/17/22 18:35 07/17/22 17:45 07/17/22 17:45 07/17/22 17:45 07/17/22 17:45 Narrative: General: Awake, alert, oriented x3 not in acute distress HEENT: Normocephalic, atraumatic, PERRLA, normal mucosa Cardiovascular: Regular rate and rhythm , S1-S2 heard, no murmurs or gallops Lungs: No wheezing or rhonchi heard Gastrointestinal: Soft, nontender, bowel sounds heard Extremities: No edema Neurological: no sensory or motor deficit Skin: Dry and warm, no rashes or lesions Psych: Normal mood and affect Results Lab Results Labs: Laboratory Last Values Corrected WBC 7.8 X10E3/uL (4.1-10.5) 07/17/22 15:44 Uncorrected WBC Count 7.8 x10E3/uL (4.5-11.0) 07/17/22 15:44 RBC 4.07 x10E6/uL (3.90-5.60) 07/17/22 15:44 Hgb 12.3 g/dL (13.0-17.0) L 07/17/22 15:44 Hct 37.3 % (38.8-50.0) L 07/17/22 15:44 MCV 91.5 fl (83.5-101) 07/17/22 15:44 MCH 30.2 pg (27.5-35.2) 07/17/22 15:44 MCHC 33.1 g/dL (32.5-35.6) 07/17/22 15:44 RDW 15.8 % (12.0-14.8) H 07/17/22 15:44 Plt Count 239 x10E3/uL (150-450) 07/17/22 15:44 MPV 10.2 fl (6.6-10.1) H 07/17/22 15:44 Neut % (Auto) 63.4 % (.) 07/17/22 15:44 Lymph % (Auto) 29.5 % (.) 07/17/22 15:44 Arthur % (Auto) 5.4 % (.) 07/17/22 15:44 Eos % (Auto) 0.7 % (.) 07/17/22 15:44 Baso % (Auto) 1.0 % (.) 07/17/22 15:44 Neut # (Auto) 4.9 x10E3/uL (1.8-7.7) 07/17/22 15:44 Lymph # (Auto) 2.3 x10E3/uL (1.00-4.8) 07/17/22 15:44 Arthur # (Auto) 0.4 x10E3/uL (0.0-0.8) 07/17/22 15:44 Eos # (Auto) 0.1 x10E3/uL (0.0-0.45) 07/17/22 15:44 Baso # (Auto) 0.1 x10E3/uL (0.0-0.2) 07/17/22 15:44 Nucleated RBC % (auto) 0.1 % (0-0.5) 07/17/22 15:44 PT 12.5 Seconds (9.0-12.9) 07/17/22 15:44 INR 1.1 07/17/22 15:44 APTT 35.8 Seconds (25.1-36.5) 07/17/22 15:44 PHA Creatinine Clear N/A 07/17/22 15:44 Sodium 139 mmol/L (136-146) 07/17/22 15:44 Potassium 4.0 mmol/L (3.5-5.1) 07/17/22 15:44 Chloride 108 mmol/L (95-114) 07/17/22 15:44 Carbon Dioxide 22.9 mmol/L (22.0-30.0) 07/17/22 15:44 Anion Gap 12.1 mEq/L (6.0-15.0) 07/17/22 15:44 BUN 12 mg/dL (9-23) 07/17/22 15:44 Creatinine 1.06 mg/dL (0.64-1.27) 07/17/22 15:44 Est GFR ( Amer) > 60 mL/Min 07/17/22 15:44 Est GFR (Non-Af Amer) > 60 mL/Min 07/17/22 15:44 Glucose 91 mg/dL (70-100) 07/17/22 15:44 Calcium 8.8 mg/dL (8.2-10.2) 07/17/22 15:44 Total Creatine Kinase 137 U/L (22-269) 07/17/22 15:44 CK-MB (CK-2) 3.6 ng/mL (0.6-6.3) 07/17/22 15:44 CK-MB (CK-2) Rel Index 2.6 % (0.00-2.50) H 07/17/22 15:44 Troponin I High Sens 6 pg/mL (0-20) 07/17/22 15:44 B-Natriuretic Peptide 116.0 pg/mL (5-100) H 07/17/22 15:44 A&P - Hospitalist Assessment/Plan (1) Chest pain: (2) Hx of CABG: (3) Coronary artery disease: (4) Diabetes mellitus: (5) HTN (hypertension): Plan Patient will be admitted to floor for observation he is currently hemodynamically stable and is afebrile, saturating well on room air with no respiratory complaints Labs showed no leukocytosis with normal BUN/creatinine Chest x-ray showed bilateral ground glass infiltrates. Patient is saturating well on room air EKG showed no acute ischemic changes Troponin within normal limits, trend troponin Urine toxicology positive for benzos. Consult cardiology Obtain lipid panel, A1c, echo Continue home meds once verified Fall precautions PT/OT DVT prophylaxis CODE STATUS full code Documented By: Sang Bauer MD 07/17/22 1833 Signed By: <Electronically signed by Sang Bauer MD> 07/18/22 [facility] Work Phone: 1(909) 784-916511-09-2022 Consult note Author Itzel Adams [facility] July 18, 2022 11:46am Note Date/Time July 18, 2022 1 1:43am [facility] [address] [place] [address] Cardiology Consult Note Signed Patient: Taylor Mcclellan SR MR#: [id number] : 1955 Acct:[id number] Age/Sex: 66 / M Adm Date: 2 Loc: Room: [address] [place] [address] Type: ADM INOo Attending Dr: Sang Bauer MD Copies to: MD Genesis Goetz MD Mourhaf A Traboulssi, MD~ Cardiology HPI History of Present Illness Consult Date: 07/18/22 Reason for Consult: Chest pain HPI: Mr. Mcclellan is a 66 year old male with known history of coronary artery disease and prior bypass surgery done in [place]. No records available. Patient report to have single-vessel bypass. Patient report he has not been seen by cardiology. He reports a visiting nurse check on him and his . He was complaining of severe back pain and reported some chest pain. He was advised usman transferred to the hospital because of complaint of chest pain. The patient reported a brief episode of chest pain without clear precipitating, alleviated or associated symptoms. Patient reported that he is very uncomfortable due to severe back pain. The patient has no recollection of any recent cardiac work-up. He was admitted cardiac enzyme and EKG appears to be negative. He had no recurrence of his chest pain. He continues to complain of severe back pain Review of Systems Review of Systems All other systems reviewed & are negative unless noted below or in HPI Constitutional Constitutional: Reports fatigue and Reports weakness Eyes Eyes: Reports system reviewed and no additional complaints, except as documented ENT Ears, Nose, Mouth, and Throat: Reports system reviewed and no additional complaints, except as documented Cardiovascular Cardiovascular: Reports chest pain Respiratory Respiratory: Reports system reviewed and no additional complaints, except as documented and Reports dyspnea on exertion Gastrointestinal Gastrointestinal: Reports system reviewed and no additional complaints, except as documented Genitourinary Genitourinary: Reports system reviewed and no additional complaints, except as documented Musculoskeletal Comments: Severe back pain with leg weakness Neurologic Neurologic: Reports system reviewed and no additional complaints, except as documented Comments: Back pain with leg weakness Psychiatric Psychiatric: Reports system reviewed and no additional complaints, except as documented Hematologic/Lymphatic Hematologic/Lymphatic: Reports system reviewed and no additional complaints, except as documented Allergic/Immunologic Allergic/Immunologic: Reports system reviewed and no additional complaints, except as documented PMFSH Vaccinated for COVID-19?: Yes Medical History (Updated 07/18/22 @ 11:44 by Itzel Adams MD) BPH (benign prostatic hyperplasia) Diabetes HLD (hyperlipidemia) HTN (hypertension) Surgical History Heart valve replaced History of common carotid artery stent placement Bilateral Previous back surgery S/P CABG (coronary artery bypass graft) Family History Mother Cardiac disease Epilepsy Brother Epilepsy Social History Smoking Status: Current every day smoker Tobacco Type: cigarettes Substance Use Type: None Social History Comments: Patient and his live in a mobile home in [place]. Meds Medications and Allergies Allergies chlordiazepoxide [From Librax (with clidinium)] Allergy (Verified 07/17/22 20:36) Unknown Reaction clidinium [From Librax (with clidinium)] Allergy (Verified 07/17/22 20:36) Unknown Reaction simvastatin [From Zocor] Allergy (Verified 07/17/22 20:36) Unknown Reaction venlafaxine [From Effexor] Allergy (Verified 07/17/22 20:36) Unknown Reaction atorvastatin [From Lipitor] Adverse Reaction (Verified 07/17/22 20:36) Unknown Reaction fentanyl Adverse Reaction (Verified 07/17/22 20:36) Unknown Reaction succinylcholine Adverse Reaction (Verified 07/17/22 20:36) Unknown Reaction Home Medications aspirin 81 mg chewable tablet (Aspirin Childrens) 81 mg PO DAILY 01/12/18 [History Confirmed 07/17/22] clopidogrel 75 mg tablet (Plavix) 75 mg PO DAILY 12/17/19 [History Confirmed 07/17/22] hydrocodone 5 mg-acetaminophen 325 mg tablet ([place]) 1 tab PO BID PRN Pain #0 tabs 12/23/19 [Rx Confirmed 07/17/22] acetaminophen 650 mg tablet 650 mg PO Q4H PRN pain 07/17/22 [History Confirmed 07/17/22] amitriptyline 50 mg tablet 50 mg PO QHS 07/17/22 [History Confirmed 07/17/22] atorvastatin 40 mg tablet 40 mg PO DAILY 07/17/22 [History Confirmed 07/17/22] brexpiprazole 3 mg tablet (Rexulti) 3 mg PO 1XD 07/17/22 [History Confirmed 07/17/22] bupropion HCl 150 mg 24 hr tablet, extended release 150 mg PO 1XD 07/17/22 [History Confirmed 07/17/22] buspirone 10 mg tablet 10 mg PO BID 07/17/22 [History Confirmed 07/17/22] carvedilol 12.5 mg tablet 12.5 mg PO BID 07/17/22 [History Confirmed 07/17/22] celecoxib 200 mg capsule 200 mg PO DAILY 07/17/22 [History Confirmed 07/17/22] citalopram 20 mg tablet 20 mg PO DAILY 07/17/22 [History Confirmed 07/17/22] divalproex 500 mg tablet,delayed release 500 mg PO BID 07/17/22 [History Confirmed 07/17/22] hydralazine 25 mg tablet 25 mg PO TID 07/17/22 [History Confirmed 07/17/22] lamotrigine 100 mg tablet 100 mg PO DAILY 07/17/22 [History Confirmed 07/17/22] lisinopril 10 mg tablet 10 mg PO DAILY 07/17/22 [History Confirmed 07/17/22] ropinirole 1 mg tablet 1 mg PO QHS PRN Muscle Spasm 07/17/22 [History Confirmed 07/17/22] Exam Physical Exam Vital Signs: Temp Pulse Resp BP Pulse Ox O2 Del Method 97.3 F L 86 18 158/87 H 98 Room Air 07/18/22 10:43 07/18/22 10:43 07/18/22 10:43 07/18/22 10:43 07/18/22 10:43 07/18/22 10:43 Const General: cooperative, comfortable, no acute distress and well developed HEENT Head: atraumatic Mouth: oral mucosae normal Eyes General: appearance normal, both eyes and all related structures Pupils: PERRL Neck Neck: normal visual inspection, supple and no lymphadenopathy noted Neck mass: No Thyroid: thyroid normal Carotids: normal carotid upstroke Chest Chest palpation & inspection: normal inspection of the chest Resp Effort & Inspection: normal respiratory effort Auscultation: clear to auscultation bilaterally Cardio Palpation: normal PMI Rate: regular rate Rhythm: regular rhythm Heart Sounds: S1 normal and S2 normal GI Palpation: soft and no hepatosplenomegaly Percussion: normal to percussion Auscultation: normal bowel sounds Skin General: no rashes or lesions noted and dry skin Neuro General: patient alert, patient awake, patient oriented x3, tone normal and moves all extremities Extrem General: full ROM, capillary refill normal and no clubbing, cyanosis or edema Psych Mental Status: mental status grossly normal Results Labs CBC & CMP: 07/17/22 15:44 07/17/22 15:44 Lab results: Cardiac Enzymes 07/17/22 07/17/22 07/17/22 Range/Units 15:44 15:44 20:29 AST 15 (10-42) U/L Total Creatine Kinase 137 (22-269) U/L CK-MB (CK-2) 3.6 (0.6-6.3) ng/mL CK-MB (CK-2) Rel Index 2.6 H (0.00-2.50) % B-Natriuretic Peptide 116.0 H (5-100) pg/mL Lipids 07/18/22 Range/Units 07:22 Triglycerides 85 (35-149) mg/dL Cholesterol 136 L (140-200) mg/dL HDL Cholesterol 38 (29-71) mg/dL Cholesterol/HDL Ratio 3.6 (<5.0) CBC 07/17/22 Range/Units 15:44 RBC 4.07 (3.90-5.60) x10E6/uL Hgb 12.3 L (13.0-17.0) g/dL Hct 37.3 L (38.8-50.0) % Plt Count 239 (150-450) x10E3/uL Neut # (Auto) 4.9 (1.8-7.7) x10E3/uL Lymph # (Auto) 2.3 (1.00-4.8) x10E3/uL Arthur # (Auto) 0.4 (0.0-0.8) x10E3/uL Eos # (Auto) 0.1 (0.0-0.45) x10E3/uL Baso # (Auto) 0.1 (0.0-0.2) x10E3/uL Comprehensive Metabolic Panel 07/17/22 07/17/22 Range/Units 15:44 20:29 Sodium 139 (136-146) mmol/L Potassium 4.0 (3.5-5.1) mmol/L Chloride 108 (95-114) mmol/L Carbon Dioxide 22.9 (22.0-30.0) mmol/L BUN 12 (9-23) mg/dL Creatinine 1.06 (0.64-1.27) mg/dL Glucose 91 (70-100) mg/dL Calcium 8.8 (8.2-10.2) mg/dL Direct Bilirubin < 0.1 (0.0-0.4) mg/dL Indirect Bilirubin TNP AST 15 (10-42) U/L ALT 13 (10-60) U/L Alkaline Phosphatase 37 (32-92) U/L Total Protein 6.1 (6.1-7.9) gm/dL Albumin 3.1 L (3.2-5.5) gm/dL Intake and Output 07/17/22 07/18/22 07/18/22 23:59 07:59 15:59 Intake Total 50 / 50 50 / 50 Output Total 0 / 0 Balance 50 / 50 50 / 50 Intake: IV 50 / 50 cefTRIAXone 1GM-*NS* 1 gm In 50 50 / 50 ml @ 100 mls/hr IV ONCE ONE Rx #:[id number] Oral 0 / 0 50 / 50 Output: Urine 0 / 0 Other: # Voids 1 # Incontinent Voids 2 # Bowel Movements 0 0 Weight 95.9 kg 95.5 kg Date of Last Bowel Movement 07/16/22 07/16/22 Patient Weight 07/18/22 23:59 Weight 95.5 kg Lab 07/17/22 15:44 PT 12.5 INR 1.1 APTT 35.8 EKG Interpretations EKG Attestation EKG: I reviewed this ECG and interpreted as documented below: (Normal sinus rhythm with right bundle branch block) A&P - Cardiology (1) Chest pain: Assessment/Problem Details: Patient reported brief episode of chest pain. Cardiac enzyme and EKG appears usman negative. Patient admitted to severe distress due to severe back pain Code(s): R07.9 - Chest pain, unspecified (2) Coronary artery disease: Assessment/Problem Details: Patient report history of bypass surgery he think it is a single-vessel bypass done in [place] record is not available patient and his cannot remember which hospital he had his surgery at. He does not follow with cardiology Qualifiers: Coronary Disease-Associated Artery/Lesion type: [place] artery [place] vs. transplanted heart: [place] heart Associated angina: without angina Qualified Code(s): I25.10 - Atherosclerotic heart disease of [place] coronary artery without angina pectoris Code(s): I25.10 - Atherosclerotic heart disease of [place] coronary artery without angina pectoris (3) Hx of CABG: Code(s): Z95.1 - Presence of aortocoronary bypass graft (4) Bipolar 1 disorder, depressed, severe: Code(s): F31.4 - Bipolar disorder, current episode depressed, severe, without psychotic features (5) Chronic back pain: Assessment/Problem Details: Patient reports severe back pain Code(s): M54.9 - Dorsalgia, unspecified; G89.29 - Other chronic pain Plan 1. Continue home medication 2. Check echocardiogram 3. Schedule Lexiscan myocardial perfusion study Documented By: Itzel Adams MD 07/18/22 1140 Signed By: <Electronically signed by MD Itzel Adams> 07/18/22 1146 [facility] Work Phone: 1(277) 990-697611-08-2022 History and physical note Author Sang Bauer [facility] July 18, 2022 3:22pm Note Date/Time July 17, 2022 6 :41pm [facility] [address] [place] [address] Hospitalist H&P Signed Patient: Taylor Mcclellan MR#: [id number] : 1955 Acct:[id number] Age/Sex: 66 / M Adm Date: 2 Loc: Room: [address] [place] [address] Type: ADM INOo Attending Dr: Sang Bauer MD Copies to: MD Genesis Goetz MD~ HPI DATE OF EXAMINATION: 07/17/22 CHIEF COMPLAINT: chest pain HISTORY OF PRESENT ILLNESS: Patient is a 66-year-old gentleman past medical history of CAD s/p CABG, hypertension, diabetes, hyperlipidemia, smoker was brought to the emergency department by his because of chest pain. Reportedly patient received 4 baby aspirin's before coming to the ED. Patient has been chest pain-free since he came to the hospital. Patient's is not at the bedside. He states that he did not have any chest pain and he was following his and wants to leave AMA. Per ED physician patient's was very concerned for the patient as he is not himself and she could not take care of him at home. Reportedly patient was taken to [facility] couple days ago when he was confused and was discharged home on lactulose though he does not have any history of cirrhosis. He was also sent home on antibiotics for possible pneumonia. Labs done in the ED today were essentially normal. EKG with no acute ischemic changes. Troponinx2 within normal limits. Chest x-ray showed ground glass interstitial prominence. Patient however is saturating well on room air and is afebrile withno cough. Explained him the importance of staying in the hospital overnight forobservation and further evaluation, he verbalized understanding and is agreeableto stay. States that he smokes 1 pack a day but does not drink alcohol. He denies any other symptoms Review of Systems Review of Systems All other systems reviewed & are negative unless noted below or in HPI PMFSH Vaccinated for COVID-19?: Yes Medical History (Updated 07/18/22 @ 11:44 by tIzel Adams MD) BPH (benign prostatic hyperplasia) Diabetes HLD (hyperlipidemia) HTN (hypertension) Surgical History Heart valve replaced History of common carotid artery stent placement Bilateral Previous back surgery S/P CABG (coronary artery bypass graft) Family History Mother Cardiac disease Epilepsy Brother Epilepsy Social History Smoking Status: Current every day smoker Tobacco Type: cigarettes (1 PPD) Substance Use Type: None Social History Comments: Patient and his live in a mobile home in [place]. Meds Medications and Allergies Allergies chlordiazepoxide [From Librax (with clidinium)] Allergy (Verified 07/17/22 20:36) Unknown Reaction clidinium [From Librax (with clidinium)] Allergy (Verified 07/17/22 20:36) Unknown Reaction simvastatin [From Zocor] Allergy (Verified 07/17/22 20:36) Unknown Reaction venlafaxine [From Effexor] Allergy (Verified 07/17/22 20:36) Unknown Reaction atorvastatin [From Lipitor] Adverse Reaction (Verified 07/17/22 20:36) Unknown Reaction fentanyl Adverse Reaction (Verified 07/17/22 20:36) Unknown Reaction succinylcholine Adverse Reaction (Verified 07/17/22 20:36) Unknown Reaction Home Medications aspirin 81 mg chewable tablet (Aspirin Childrens) 81 mg PO DAILY 01/12/18 [History Confirmed 07/17/22] clopidogrel 75 mg tablet (Plavix) 75 mg PO DAILY 12/17/19 [History Confirmed 07/17/22] hydrocodone 5 mg-acetaminophen 325 mg tablet ([place]) 1 tab PO BID PRN Pain #0 tabs 12/23/19 [Rx Confirmed 07/17/22] acetaminophen 650 mg tablet 650 mg PO Q4H PRN pain 07/17/22 [History Confirmed 07/17/22] amitriptyline 50 mg tablet 50 mg PO QHS 07/17/22 [History Confirmed 07/17/22] atorvastatin 40 mg tablet 40 mg PO DAILY 07/17/22 [History Confirmed 07/17/22] brexpiprazole 3 mg tablet (Rexulti) 3 mg PO 1XD 07/17/22 [History Confirmed 07/17/22] bupropion HCl 150 mg 24 hr tablet, extended release 150 mg PO 1XD 07/17/22 [History Confirmed 07/17/22] buspirone 10 mg tablet 10 mg PO BID 07/17/22 [History Confirmed 07/17/22] carvedilol 12.5 mg tablet 12.5 mg PO BID 07/17/22 [History Confirmed 07/17/22] celecoxib 200 mg capsule 200 mg PO DAILY 07/17/22 [History Confirmed 07/17/22] citalopram 20 mg tablet 20 mg PO DAILY 07/17/22 [History Confirmed 07/17/22] divalproex 500 mg tablet,delayed release 500 mg PO BID 07/17/22 [History Confirmed 07/17/22] hydralazine 25 mg tablet 25 mg PO TID 07/17/22 [History Confirmed 07/17/22] lamotrigine 100 mg tablet 100 mg PO DAILY 07/17/22 [History Confirmed 07/17/22] lisinopril 10 mg tablet 10 mg PO DAILY 07/17/22 [History Confirmed 07/17/22] ropinirole 1 mg tablet 1 mg PO QHS PRN Muscle Spasm 07/17/22 [History Confirmed 07/17/22] Exam Physical Exam Vital Signs: Temp Pulse Resp BP Pulse Ox O2 Del Method 98.1 F 73 16 151/64 H 98 Room Air 07/17/22 15:40 07/17/22 18:35 07/17/22 17:45 07/17/22 17:45 07/17/22 17:45 07/17/22 17:45 Narrative: General: Awake, alert, oriented x3 not in acute distress HEENT: Normocephalic, atraumatic, PERRLA, normal mucosa Cardiovascular: Regular rate and rhythm , S1-S2 heard, no murmurs or gallops Lungs: No wheezing or rhonchi heard Gastrointestinal: Soft, nontender, bowel sounds heard Extremities: No edema Neurological: no sensory or motor deficit Skin: Dry and warm, no rashes or lesions Psych: Normal mood and affect Results Lab Results Labs: Laboratory Last Values Corrected WBC 7.8 X10E3/uL (4.1-10.5) 07/17/22 15:44 Uncorrected WBC Count 7.8 x10E3/uL (4.5-11.0) 07/17/22 15:44 RBC 4.07 x10E6/uL (3.90-5.60) 07/17/22 15:44 Hgb 12.3 g/dL (13.0-17.0) L 07/17/22 15:44 Hct 37.3 % (38.8-50.0) L 07/17/22 15:44 MCV 91.5 fl (83.5-101) 07/17/22 15:44 MCH 30.2 pg (27.5-35.2) 07/17/22 15:44 MCHC 33.1 g/dL (32.5-35.6) 07/17/22 15:44 RDW 15.8 % (12.0-14.8) H 07/17/22 15:44 Plt Count 239 x10E3/uL (150-450) 07/17/22 15:44 MPV 10.2 fl (6.6-10.1) H 07/17/22 15:44 Neut % (Auto) 63.4 % (.) 07/17/22 15:44 Lymph % (Auto) 29.5 % (.) 07/17/22 15:44 Arthur % (Auto) 5.4 % (.) 07/17/22 15:44 Eos % (Auto) 0.7 % (.) 07/17/22 15:44 Baso % (Auto) 1.0 % (.) 07/17/22 15:44 Neut # (Auto) 4.9 x10E3/uL (1.8-7.7) 07/17/22 15:44 Lymph # (Auto) 2.3 x10E3/uL (1.00-4.8) 07/17/22 15:44 Arthur # (Auto) 0.4 x10E3/uL (0.0-0.8) 07/17/22 15:44 Eos # (Auto) 0.1 x10E3/uL (0.0-0.45) 07/17/22 15:44 Baso # (Auto) 0.1 x10E3/uL (0.0-0.2) 07/17/22 15:44 Nucleated RBC % (auto) 0.1 % (0-0.5) 07/17/22 15:44 PT 12.5 Seconds (9.0-12.9) 07/17/22 15:44 INR 1.1 07/17/22 15:44 APTT 35.8 Seconds (25.1-36.5) 07/17/22 15:44 PHA Creatinine Clear N/A 07/17/22 15:44 Sodium 139 mmol/L (136-146) 07/17/22 15:44 Potassium 4.0 mmol/L (3.5-5.1) 07/17/22 15:44 Chloride 108 mmol/L (95-114) 07/17/22 15:44 Carbon Dioxide 22.9 mmol/L (22.0-30.0) 07/17/22 15:44 Anion Gap 12.1 mEq/L (6.0-15.0) 07/17/22 15:44 BUN 12 mg/dL (9-23) 07/17/22 15:44 Creatinine 1.06 mg/dL (0.64-1.27) 07/17/22 15:44 Est GFR ( Amer) > 60 mL/Min 07/17/22 15:44 Est GFR (Non-Af Amer) > 60 mL/Min 07/17/22 15:44 Glucose 91 mg/dL (70-100) 07/17/22 15:44 Calcium 8.8 mg/dL (8.2-10.2) 07/17/22 15:44 Total Creatine Kinase 137 U/L (22-269) 07/17/22 15:44 CK-MB (CK-2) 3.6 ng/mL (0.6-6.3) 07/17/22 15:44 CK-MB (CK-2) Rel Index 2.6 % (0.00-2.50) H 07/17/22 15:44 Troponin I High Sens 6 pg/mL (0-20) 07/17/22 15:44 B-Natriuretic Peptide 116.0 pg/mL (5-100) H 07/17/22 15:44 A&P - Hospitalist Assessment/Plan (1) Chest pain: (2) Hx of CABG: (3) Coronary artery disease: (4) Diabetes mellitus: (5) HTN (hypertension): Plan Patient will be admitted to floor for observation he is currently hemodynamically stable and is afebrile, saturating well on room air with no respiratory complaints Labs showed no leukocytosis with normal BUN/creatinine Chest x-ray showed bilateral ground glass infiltrates. Patient is saturating well on room air EKG showed no acute ischemic changes Troponin within normal limits, trend troponin Urine toxicology positive for benzos. Consult cardiology Obtain lipid panel, A1c, echo Continue home meds once verified Fall precautions PT/OT DVT prophylaxis CODE STATUS full code Documented By: Sang Bauer MD 07/17/22 0467 Signed By: <Electronically signed by Sang Bauer MD> 07/18/22 1528 [facility] Work Phone: [phone] Consult note Author Itzel Adams [facility] July 18, 2022 11:46am Note Date/Time July 18, 2022 1 1:43am [facility] [address] [place] [address] Cardiology Consult Note Signed Patient: Taylor Mcclellan MR#: [id number] : 1955 Acct:[id number] Age/Sex: 66 / M Adm Date: 2 Loc: 3T Room: [address] [place] [address] Type: ADM INOo Attending Dr: Sang Bauer MD Copies to: MD Genesis Goetz MD Mourhaf A Traboulssi,MD~ Cardiology HPI History of Present Illness Consult Date: 07/18/22 Reason for Consult: Chest pain HPI: Mr. Mcclellan is a 66 year old male with known history of coronary artery disease and prior bypass surgery done in [place]. No records available. Patient report to have single-vessel bypass. Patient report he has not been seen by cardiology. He reports a visiting nurse check on him and his . He was complaining of severe back pain and reported some chest pain. He was advised usman transferred to the hospital because of complaint of chest pain. The patient reported a brief episode of chest pain without clear precipitating, alleviated or associated symptoms. Patient reported that he is very uncomfortable due to severe back pain. The patient has no recollection of any recent cardiac work-up. He was admitted cardiac enzyme and EKG appears to be negative. He had no recurrence of his chest pain. He continues to complain of severe back pain Review of Systems Review of Systems All other systems reviewed & are negative unless noted below or in HPI Constitutional Constitutional: Reports fatigue and Reports weakness Eyes Eyes: Reports system reviewed and no additional complaints, except as documented ENT Ears, Nose, Mouth, and Throat: Reports system reviewed and no additional complaints, except as documented Cardiovascular Cardiovascular: Reports chest pain Respiratory Respiratory: Reports system reviewed and no additional complaints, except as documented and Reports dyspnea on exertion Gastrointestinal Gastrointestinal: Reports system reviewed and no additional complaints, except as documented Genitourinary Genitourinary: Reports system reviewed and no additional complaints, except as documented Musculoskeletal Comments: Severe back pain with leg weakness Neurologic Neurologic: Reports system reviewed and no additional complaints, except as documented Comments: Back pain with leg weakness Psychiatric Psychiatric: Reports system reviewed and no additional complaints, except as documented Hematologic/Lymphatic Hematologic/Lymphatic: Reports system reviewed and no additional complaints, except as documented Allergic/Immunologic Allergic/Immunologic: Reports system reviewed and no additional complaints, except as documented PMFSH Vaccinated for COVID-19?: Yes Medical History (Updated 07/18/22 @ 11:44 by Itzel Adams MD) BPH (benign prostatic hyperplasia) Diabetes HLD (hyperlipidemia) HTN (hypertension) Surgical History Heart valve replaced History of common carotid artery stent placement Bilateral Previous back surgery S/P CABG (coronary artery bypass graft) Family History Mother Cardiac disease Epilepsy Brother Epilepsy Social History Smoking Status: Current every day smoker Tobacco Type: cigarettes Substance Use Type: None Social History Comments: Patient and his live in a mobile home in [place]. Meds Medications and Allergies Allergies chlordiazepoxide [From Librax (with clidinium)] Allergy (Verified 07/17/22 20:36) Unknown Reaction clidinium [From Librax (with clidinium)] Allergy (Verified 07/17/22 20:36) Unknown Reaction simvastatin [From Zocor] Allergy (Verified 07/17/22 20:36) Unknown Reaction venlafaxine [From Effexor] Allergy (Verified 07/17/22 20:36) Unknown Reaction atorvastatin [From Lipitor] Adverse Reaction (Verified 07/17/22 20:36) Unknown Reaction fentanyl Adverse Reaction (Verified 07/17/22 20:36) Unknown Reaction succinylcholine Adverse Reaction (Verified 07/17/22 20:36) Unknown Reaction Home Medications aspirin 81 mg chewable tablet (Aspirin Childrens) 81 mg PO DAILY 01/12/18 [History Confirmed 07/17/22] clopidogrel 75 mg tablet (Plavix) 75 mg PO DAILY 12/17/19 [History Confirmed 07/17/22] hydrocodone 5 mg-acetaminophen 325 mg tablet ([place]) 1 tab PO BID PRN Pain #0 tabs 12/23/19 [Rx Confirmed 07/17/22] acetaminophen 650 mg tablet 650 mg PO Q4H PRN pain 07/17/22 [History Confirmed 07/17/22] amitriptyline 50 mg tablet 50 mg PO QHS 07/17/22 [History Confirmed 07/17/22] atorvastatin 40 mg tablet 40 mg PO DAILY 07/17/22 [History Confirmed 07/17/22] brexpiprazole 3 mg tablet (Rexulti) 3 mg PO 1XD 07/17/22 [History Confirmed 07/17/22] bupropion HCl 150 mg 24 hr tablet, extended release 150 mg PO 1XD 07/17/22 [History Confirmed 07/17/22] buspirone 10 mg tablet 10 mg PO BID 07/17/22 [History Confirmed 07/17/22] carvedilol 12.5 mg tablet 12.5 mg PO BID 07/17/22 [History Confirmed 07/17/22] celecoxib 200 mg capsule 200 mg PO DAILY 07/17/22 [History Confirmed 07/17/22] citalopram 20 mg tablet 20 mg PO DAILY 07/17/22 [History Confirmed 07/17/22] divalproex 500 mg tablet,delayed release 500 mg PO BID 07/17/22 [History Confirmed 07/17/22] hydralazine 25 mg tablet 25 mg PO TID 07/17/22 [History Confirmed 07/17/22] lamotrigine 100 mg tablet 100 mg PO DAILY 07/17/22 [History Confirmed 07/17/22] lisinopril 10 mg tablet 10 mg PO DAILY 07/17/22 [History Confirmed 07/17/22] ropinirole 1 mg tablet 1 mg PO QHS PRN Muscle Spasm 07/17/22 [History Confirmed 07/17/22] Exam Physical Exam Vital Signs: Temp Pulse Resp BP Pulse Ox O2 Del Method 97.3 F L 86 18 158/87 H 98 Room Air 07/18/22 10:43 07/18/22 10:43 07/18/22 10:43 07/18/22 10:43 07/18/22 10:43 07/18/22 10:43 Const General: cooperative, comfortable, no acute distress and well developed HEENT Head: atraumatic Mouth: oral mucosae normal Eyes General: appearance normal, both eyes and all related structures Pupils: PERRL Neck Neck: normal visual inspection, supple and no lymphadenopathy noted Neck mass: No Thyroid: thyroid normal Carotids: normal carotid upstroke Chest Chest palpation & inspection: normal inspection of the chest Resp Effort & Inspection: normal respiratory effort Auscultation: clear to auscultation bilaterally Cardio Palpation: normal PMI Rate: regular rate Rhythm: regular rhythm Heart Sounds: S1 normal and S2 normal GI Palpation: soft and no hepatosplenomegaly Percussion: normal to percussion Auscultation: normal bowel sounds Skin General: no rashes or lesions noted and dry skin Neuro General: patient alert, patient awake, patient oriented x3, tone normal and moves all extremities Extrem General: full ROM, capillary refill normal and no clubbing, cyanosis or edema Psych Mental Status: mental status grossly normal Results Labs CBC & CMP: 07/17/22 15:44 07/17/22 15:44 Lab results: Cardiac Enzymes 07/17/22 07/17/22 07/17/22 Range/Units 15:44 15:44 20:29 AST 15 (10-42) U/L Total Creatine Kinase 137 (22-269) U/L CK-MB (CK-2) 3.6 (0.6-6.3) ng/mL CK-MB (CK-2) Rel Index 2.6 H (0.00-2.50) % B-Natriuretic Peptide 116.0 H (5-100) pg/mL Lipids 07/18/22 Range/Units 07:22 Triglycerides 85 (35-149) mg/dL Cholesterol 136 L (140-200) mg/dL HDL Cholesterol 38 (29-71) mg/dL Cholesterol/HDL Ratio 3.6 (<5.0) CBC 07/17/22 Range/Units 15:44 RBC 4.07 (3.90-5.60) x10E6/uL Hgb 12.3 L (13.0-17.0) g/dL Hct 37.3 L (38.8-50.0) % Plt Count 239 (150-450) x10E3/uL Neut # (Auto) 4.9 (1.8-7.7) x10E3/uL Lymph # (Auto) 2.3 (1.00-4.8) x10E3/uL Arthur # (Auto) 0.4 (0.0-0.8) x10E3/uL Eos # (Auto) 0.1 (0.0-0.45) x10E3/uL Baso # (Auto) 0.1 (0.0-0.2) x10E3/uL Comprehensive Metabolic Panel 07/17/22 07/17/22 Range/Units 15:44 20:29 Sodium 139 (136-146) mmol/L Potassium 4.0 (3.5-5.1) mmol/L Chloride 108 (95-114) mmol/L Carbon Dioxide 22.9 (22.0-30.0) mmol/L BUN 12 (9-23) mg/dL Creatinine 1.06 (0.64-1.27) mg/dL Glucose 91 (70-100) mg/dL Calcium 8.8 (8.2-10.2) mg/dL Direct Bilirubin < 0.1 (0.0-0.4) mg/dL Indirect Bilirubin TNP AST 15 (10-42) U/L ALT 13 (10-60) U/L Alkaline Phosphatase 37 (32-92) U/L Total Protein 6.1 (6.1-7.9) gm/dL Albumin 3.1 L (3.2-5.5) gm/dL Intake and Output 07/17/22 07/18/22 07/18/22 23:59 07:59 15:59 Intake Total 50 / 50 50 / 50 Output Total 0 / 0 Balance 50 / 50 50 / 50 Intake: IV 50 / 50 cefTRIAXone 1GM-*NS* 1 gm In 50 50 / 50 ml @ 100 mls/hr IV ONCE ONE Rx #:[id number] Oral 0 / 0 50 / 50 Output: Urine 0 / 0 Other: # Voids 1 # Incontinent Voids 2 # Bowel Movements 0 0 Weight 95.9 kg 95.5 kg Date of Last Bowel Movement 07/16/22 07/16/22 Patient Weight 07/18/22 23:59 Weight 95.5 kg Lab 07/17/22 15:44 PT 12.5 INR 1.1 APTT 35.8 EKG Interpretations EKG Attestation EKG: I reviewed this ECG and interpreted as documented below: (Normal sinus rhythm with right bundle branch block) A&P - Cardiology (1) Chest pain: Assessment/Problem Details: Patient reported brief episode of chest pain. Cardiac enzyme and EKG appears usman negative. Patient admitted to severe distress due to severe back pain Code(s): R07.9 - Chest pain, unspecified (2) Coronary artery disease: Assessment/Problem Details: Patient report history of bypass surgery he think it is a single-vessel bypass done in [place] record is not available patient and his cannot remember which hospital he had his surgery at. He does not follow with cardiology Qualifiers: Coronary Disease-Associated Artery/Lesion type: [place] artery [place] vs. transplanted heart: [place] heart Associated angina: without angina Qualified Code(s): I25.10 - Atherosclerotic heart disease of [place] coronary artery without angina pectoris Code(s): I25.10 - Atherosclerotic heart disease of [place] coronary artery without angina pectoris (3) Hx of CABG: Code(s): Z95.1 - Presence of aortocoronary bypass graft (4) Bipolar 1 disorder, depressed, severe: Code(s): F31.4 - Bipolar disorder, current episode depressed, severe, without psychotic features (5) Chronic back pain: Assessment/Problem Details: Patient reports severe back pain Code(s): M54.9 - Dorsalgia, unspecified; G89.29 - Other chronic pain Plan 1. Continue home medication 2. Check echocardiogram 3. Schedule Lexiscan myocardial perfusion study Documented By: Itzel Adams MD 07/18/22 1140 Signed By: <Electronically signed by MD Itzel Adams> 07/18/22 1146 [facility] Work Phone: Discharge summary Author Sang Bauer [facility] July 20, 2022 6:39pm Note Date/Time July 20, 2022 3:04pm [facility] [address] [place] [address] Discharge Summary Signed Patient: Taylor Mcclellan MR#: [id number] : 1955 Acct:[id number] Age/Sex: 66 / M Adm Date: 2 Loc: Room: [address] [place] [address]: Sang Bauer MD Copies to: MD Genesis Goetz MD~ Providers Date of Discharge: 07/20/22 Discharging Provider: Sang Bauer Primary Care Provider: Genesis Reynolds Consults: 07/17/22 18:33 Consult to Cardiology Routine Consult to Occupational Therapy Routine Consult to Physical Therapy Routine Discharge Diagnosis (1) Chest pain: (2) Coronary artery disease: (3) Hx of CABG: (4) Bipolar 1 disorder, depressed, severe: (5) Chronic back pain: Final Diagnosis Final Discharge Diagnosis: see above Summary Hospital Course Hospital course: Patient is a 66-year-old gentleman past medical history of CAD s/p CABG, hypertension, diabetes, hyperlipidemia, smoker was brought to the emergency department by his because of chest pain. Labs essentially normal. EKG showed no acute ischemic changes. Troponin within normal limits. Patient is otherwise saturating well on room air and is hemodynamically stable and did not have any chest pain since he came to the hospital. Cardiology was consulted dueto history of CABG with multiple risk factors. Echo obtained which showed normal ejection fraction with no significant valvular abnormality. Stress test done which showed no signs of ischemia. Patient remained chest pain-free duringthe hospital stay. Patient's family is not comfortable taking him home as patient had history of frequent falls. PT/OT evaluated the patient, recommendedSNF upon discharge. Patient is agreeable to go to SNF. Educated patient to be compliant with his medications after discharge, he verbalized understanding. Patient to follow-up with his physician as an outpatient. Educated him to go toER or call his physician symptoms recur or worsen, he verbalized understanding. Patient is being discharged today. Condition Condition at Discharge: Stable Time Spent with Patient Time spent providing/coordinating discharge services (# min): 45 Diagnostic Studies Completed and Pending Studies Pending studies at discharge: 07/17/22 18:00 Blood Culture Stat Preliminary micro results at discharge 07/17/22 18:00 Blood Culture - Preliminary Blood - Left Hand No Growth 2 Days 07/17/22 18:05 Blood Culture - Preliminary Blood - Left Antecubital No Growth 2 Days Labs on day of discharge: 07/20/22 11:33: POC Glucose 92 07/20/22 06:30: POC Glucose 146, POC Glucose Comment Glu2: cleaned meter 07/19/22 20:26: POC Glucose 127, POC Glucose Comment Glu2: cleaned meter 07/19/22 16:19: POC Glucose 108 Exam Physical Exam Vital Signs: Temp Pulse Resp BP Pulse Ox O2 Del Method 97.3 F L 64 16 149/81 H 95 Room Air 07/20/22 11:35 07/20/22 11:35 07/20/22 11:35 07/20/22 11:35 07/20/22 11:35 07/20/22 11:35 Narrative: General: Awake, alert, oriented x3 not in acute distress HEENT: Normocephalic, atraumatic, PERRLA, normal mucosa Cardiovascular: Regular rate and rhythm , S1-S2 heard, no murmurs or gallops Lungs: No wheezing or rhonchi heard Gastrointestinal: Soft, nontender, bowel sounds heard Extremities: No edema Neurological: no sensory or motor deficit Skin: Dry and warm, no rashes or lesions Psych: Normal mood and affect Discharge Plan Discharge Plan Patient Disposition: Intermediate Facility Activity: No Activity Restriction Diet: Low-Sodium and Low-Cholesterol Additional Instructions: SNF TO MANAGE: PT/OT to eval and treat Monitor VS per protocol--HTN Monitor FSBS Maintain high risk fall precautions Care to be managed by by SNF providers Prescriptions: New tramadol 50 mg tablet 50 mg PO Q8H PRN (Reason: pain) 3 Days Qty: 8 0RF Continued celecoxib 200 mg Capsule 200 mg PO DAILY atorvastatin 40 mg Tablet 40 mg PO DAILY carvedilol 12.5 mg Tablet 12.5 mg PO BID Rx Instructions: must administer with a meal/food ropinirole 1 mg Tablet 1 mg PO QHS PRN (Reason: Muscle Spasm) Rx Instructions: administer 1-3 hours before bedtime hydralazine 25 mg Tablet 25 mg PO TID divalproex 500 mg Tablet,Delayed Release (Dr/Ec) 500 mg PO BID acetaminophen 650 mg Tablet 650 mg PO Q4H PRN (Reason: pain) amitriptyline 50 mg Tablet 50 mg PO QHS lisinopril 10 mg Tablet 10 mg PO DAILY lamotrigine 100 mg Tablet 100 mg PO DAILY Rexulti 3 mg Tablet 3 mg PO 1XD citalopram 20 mg Tablet 20 mg PO DAILY buspirone 10 mg Tablet 10 mg PO BID bupropion HCl 150 mg tablet extended release 24 hr 150 mg PO 1XD Label Comments: TAKE 1 TABLET BY MOUTH ONCE DAILY aspirin [Aspirin Childrens] 81 mg Tablet,Chewable 81 mg PO DAILY clopidogrel [Plavix] 75 mg tablet 75 mg PO DAILY Discontinued hydrocodone-acetaminophen [[place]] 5-325 mg tablet 1 tab PO BID PRN (Reason: Pain) Qty: 0 0RF Other Amb[place] Orders: [facility] [place] ([place]ine) Timeframe: [id number] Location: Determined by Patient Ordered By: Sang Bauer Follow Up: Lilia Hopper APRN [Nurse Practitioner] - 08/22/22 10:30 am Documented By: Sang Bauer MD 07/20/22 9119 Signed By: <Electronically signed by Sang Bauer MD> 07/20/22 4449 [facility] Work Phone: Evaluation note* Diagnosis Onset Date Resolution Status Chest pain acute Coronary artery disease acut e Generalized weakness acute Hx of CABG acute Diabetes mellitus chronic HTN (hypertension) chronic [facility] Work Phone: Evaluation note* Diagnosis Onset Date Resolution Status Bipolar 1 disorder, depressed, severe acute Chest pain acute Coronary artery disease acut e Generalized weakness acute Hx of CABG acute Chronic back pain chronic Diabetes mellitus chronic HTN (hypertension) chronic [facility] Work Phone: Evaluation noteNo assessment information available [facility] Work Phone: Evaluation noteNo InformationNortThomas [facility] [employer] Other History general Narrative - Reported* Type Description Date Medical History CABG Medical History BPH Medical History HTN Medical History Diabetes Medical History HLD Medical History lumbosacral spondylosis Medical History lumbar neuritis Medical History disorder of sacrum Surgical History previous back surgery Surgical History heart valve replacement Surgical History CABG Hospitalization History see above [facility] Other Hospital Discharge instructions Additional Instructions SNF TO MANAGE: PT/OT to eval and treat Monitor VS per protocol--HTN Monitor FSBS Maintain high risk fall precautions [facility] Work Phone: Progress note Author Sang Bauer [facility] July 18, 2022 3:24pm Note Date/Time July 18, 2022 3 :24pm [facility] [address] [place] [address] Hospitalist Progress Note Signed Patient: Taylor Mcclellan MR#: [id number] : 1955 Acct:[id number] Age/Sex: 66 / M Adm Date: 2 Loc: Room: [address] [place] [address] Type: ADM INOo Attending Dr: Sang Bauer MD Copies to: ~ Date of Service: 07/18/2022 Subjective Subjective Narrative: Patient seen and examined. Patient is comfortably sitting in chair having lunch. States that he slept well last night. He did not have any chest pain since he came to the hospital. Denies any shortness of breath, cough, fever andchills. Exam Physical Exam Vital Signs: Temp Pulse Resp BP Pulse Ox O2 Del Method 97.5 F L 62 18 158/87 H 98 Room Air 07/18/22 15:15 07/18/22 15:15 07/18/22 15:15 07/18/22 10:43 07/18/22 15:15 07/18/22 15:15 Narrative: General: Awake, alert, oriented x3 not in acute distress HEENT: Normocephalic, atraumatic, PERRLA, normal mucosa Cardiovascular: Regular rate and rhythm , S1-S2 heard, no murmurs or gallops Lungs: No wheezing or rhonchi heard Gastrointestinal: Soft, nontender, bowel sounds heard Extremities: No edema Neurological: no sensory or motor deficit Skin: Dry and warm, no rashes or lesions Psych: Normal mood and affect Objective Lab Results CBC & Chem 7: 07/17/22 15:44 07/17/22 15:44 Microbiology Results Microbiology 07/17/22 18:05 Nasopharyngeal SARS-CoV-2, Influenza & RSV (PCR) - Final Meds Allergies and Active Meds Allergies chlordiazepoxide [From Librax (with clidinium)] Allergy (Verified 07/17/22 20:36) Unknown Reaction clidinium [From Librax (with clidinium)] Allergy (Verified 07/17/22 20:36) Unknown Reaction simvastatin [From Zocor] Allergy (Verified 07/17/22 20:36) Unknown Reaction venlafaxine [From Effexor] Allergy (Verified 07/17/22 20:36) Unknown Reaction atorvastatin [From Lipitor] Adverse Reaction (Verified 07/17/22 20:36) Unknown Reaction fentanyl Adverse Reaction (Verified 07/17/22 20:36) Unknown Reaction succinylcholine Adverse Reaction (Verified 07/17/22 20:36) Unknown Reaction Active Meds: Active Medications Generic Name Dose Route Start Last Admin Trade Name Freq PRN Reason Stop Dose Admin Acetaminophen 650 mg 07/17/22 18:33 07/18/22 09:20 Acetaminophen 325 Mg Tablet PO 07/17/23 18:32 650 mg Q6HR PRN Administration Pain Scale 1 - 3 or fever Albuterol 2 puff 07/17/22 18:36 Albuterol Hfa 60 Puff/8 Gram Inhaler INHALATION 07/17/23 18:35 Q4H PRN Shortness Of Breath Or Wheezing Amitriptyline HCl 50 mg 07/18/22 22:00 Amitriptyline 50 Mg Tablet PO 07/18/23 21:59 QHS AMISHA Aspirin 81 mg 07/18/22 12:00 07/18/22 11:47 Aspirin 81 Mg Tab.Chew PO 07/18/23 11:59 81 mg DAILY AMISHA Administration Atorvastatin Calcium 40 mg 07/19/22 09:00 Atorvastatin 40 Mg Tablet PO 07/19/23 08:59 DAILY AMISHA Bupropion HCl 150 mg 07/18/22 12:00 07/18/22 11:47 Bupropion 150 Mg Tab.Er.24h PO 07/18/23 11:59 150 mg DAILY AMISHA Administration Buspirone HCl 10 mg 07/18/22 12:00 07/18/22 11:48 Buspirone 10 Mg Tablet PO 07/18/23 11:59 10 mg BID AMISHA Administration Carvedilol 12.5 mg 07/18/22 12:00 07/18/22 11:48 Carvedilol 12.5 Mg Tablet PO 07/18/23 11:59 12.5 mg BID.WITH.MEALS AMISHA Administration Celecoxib 200 mg 07/18/22 12:00 07/18/22 11:47 Celecoxib 200 Mg Capsule PO 07/18/23 11:59 200 mg DAILY AMISHA Administration Citalopram Hydrobromide 20 mg 07/18/22 12:00 07/18/22 11:48 Citalopram 20 Mg Tablet PO 07/18/23 11:59 20 mg DAILY AMISHA Administration Clopidogrel Bisulfate 75 mg 07/18/22 12:00 07/18/22 11:48 Clopidogrel Bisulfate 75 Mg Tablet PO 07/18/23 11:59 75 mg DAILY AMISHA Administration Divalproex Sodium 500 mg 07/18/22 12:00 07/18/22 11:47 Divalproex Sodium 500 Mg Tablet. PO 07/18/23 11:59 500 mg BID AMISHA Administration Enoxaparin Sodium 40 mg 07/18/22 10:00 07/18/22 09:20 Enoxaparin 40 Mg/0.4 Ml Syringe SUBCUT 07/18/23 09:59 40 mg DAILY@10 AMISHA Administration Hydralazine HCl 10 mg 07/17/22 18:33 07/17/22 23:22 Hydralazine 20 Mg/Ml Vial IV-PUSH 07/17/23 18:32 10 mg Q4H PRN Administration Hypertension Hydralazine HCl 25 mg 07/18/22 14:00 Hydralazine 25 Mg Tablet PO 07/18/23 13:59 TID AMISHA Insulin Aspart 0 units 07/17/22 22:00 07/18/22 11:48 Insulin Aspart 300 Units/3 Ml Insuln.Pen SUBCUT 07/17/23 21:59 Not Given TID.WM.HS [facility] Protocol Lamotrigine 100 mg 07/18/22 12:00 07/18/22 11:47 Lamotrigine 100 Mg Tablet PO 07/18/23 11:59 100 mg DAILY AMISHA Administration Lisinopril 10 mg 07/18/22 12:00 07/18/22 11:47 Lisinopril 10 Mg Tablet PO 07/18/23 11:59 10 mg DAILY AMISHA Administration Nitroglycerin 0.4 mg 07/17/22 18:33 Nitroglycerin 0.4 Mg Tab.Subl SUBLINGUAL 07/17/23 18:32 Q5M PRN Chest Pain Non-Formulary Medication 3 mg 07/18/22 11:15 Brexpiprazole [Rexulti] PO 07/18/23 11:14 1XD [facility] Ondansetron HCl 4 mg 07/17/22 18:33 Ondansetron 4 Mg/2 Ml Vial IV-PUSH 07/17/23 18:32 Q8H PRN Nausea And Vomiting Regadenoson 0.4 mg 07/19/22 09:00 Regadenoson 0.4 Mg/5 Ml Syringe IV-PUSH 07/19/22 09:01 ONCE ONE Ropinirole HCl 1 mg 07/18/22 11:07 Ropinirole 1 Mg Tablet PO 07/18/23 11:06 QHS PRN Muscle Spasm Sodium Chloride 0 ml 07/17/22 15:40 Sodium Chloride 0.9 % 10 Ml Syringe IV-PUSH 07/17/23 15:39 PRN PRN Flush Sodium Chloride 0 ml 07/19/22 09:00 Sodium Chloride 0.9 % 10 Ml Syringe IV-PUSH 07/19/23 08:59 PRN PRN Flush Tramadol HCl 50 mg 07/18/22 10:54 07/18/22 11:47 Tramadol 50 Mg Tablet PO 01/14/23 10:53 50 mg Q8H PRN Administration Pain A&P - Hospitalist Assessment/Plan (1) Chest pain: (2) Hx of CABG: (3) Coronary artery disease: (4) Diabetes mellitus: (5) HTN (hypertension): Plan Patient had no chest pain since he came in he is currently hemodynamically stable and is afebrile, saturating well on room air with no respiratory complaints Labs showed no leukocytosis with normal BUN/creatinine Chest x-ray showed bilateral ground glass infiltrates. EKG showed no acute ischemic changes Troponin within normal limits Urine toxicology positive for benzos. Cardiology on board, plan for stress test. Echo pending LDL 81, A1c 5.6 Fall precautions PT/OT DVT prophylaxis CODE STATUS full code Documented By: Sang Bauer MD 07/18/221521 Signed By: <Electronically signed by Sang Bauer MD> 07/18/22 1524 [facility] Work Phone: Progress note Author Itzel Adams [facility] July 19, 2022 8:35am Note Date/Time July 19, 2022 8:35am [facility] [address] [place] [address] Cardiology Progress Note Signed Patient: Taylor Mcclellan MR#: [id number] : 1955 Acct:[id number] Age/Sex: 66 / M Adm Date: 2 Loc: Room: [address] [place] [address] Type: ADM INOo Attending Dr: Sang Bauer MD Copies to: ~ Date of Service: 07/19/2022 Subjective Interval history: Patient resting comfortably. Continue complain of back pain. No further chest pain Exam Physical Exam Vital Signs: Temp Pulse Resp BP Pulse Ox O2 Del Method 97.6 F 61 16 136/78 94 L Room Air 07/19/22 04:00 07/19/22 04:00 07/19/22 04:00 07/19/22 04:00 07/19/22 04:00 07/19/22 04:00 Eyes General: appearance normal, both eyes and all related structures Pupils: PERRL Neck Neck: normal visual inspection, supple and no lymphadenopathy noted Neck mass: No Thyroid: thyroid normal Carotids: normal carotid upstroke Chest Chest palpation & inspection: normal inspection of the chest Resp Effort & Inspection: normal respiratory effort Auscultation: clear to auscultation bilaterally Cardio Palpation: normal PMI Rate: regular rate Rhythm: regular rhythm Heart Sounds: S1 normal and S2 normal Extrem General: full ROM, capillary refill normal and no clubbing, cyanosis or edema Objective Labs CBC & Chem 7: 07/17/22 15:44 07/17/22 15:44 Labs: Laboratory Results - last 24 hr 07/17/22 07/18/22 07/18/22 15:44 11:04 16:39 POC Glucose 94 98 POC Glucose Comment Glu2: cleaned meter Estimat Average Glucose 114 Hemoglobin A1c 5.6 07/18/22 07/19/22 21:09 06:33 POC Glucose 119 90 POC Glucose Comment Glu2: cleaned meter Glu2: cleaned meter Estimat Average Glucose Hemoglobin A1c A&P - Cardiology (1) Chest pain: Assessment/Problem Details: Patient reported brief episode of chest pain. Cardiac enzyme and EKG appears usman negative. Patient admitted to severe distress due to severe back pain Code(s): R07.9 - Chest pain, unspecified Status: Acute (2) Coronary artery disease: Assessment/Problem Details: Patient report history of bypass surgery he think it is a single-vessel bypass done in [place] record is not available patient and his cannot remember which hospital he had his surgery at. He does not follow with cardiology Qualifiers: Coronary Disease-Associated Artery/Lesion type: [place] artery [place] vs. transplanted heart: [place] heart Associated angina: without angina Qualified Code(s): I25.10 - Atherosclerotic heart disease of [place] coronary artery without angina pectoris Code(s): I25.10 - Atherosclerotic heart disease of [place] coronary artery without angina pectoris Status: Acute (3) Hx of CABG: Code(s): Z95.1 - Presence of aortocoronary bypass graft Status: Acute (4) Bipolar 1 disorder, depressed, severe: Code(s): F31.4 - Bipolar disorder, current episode depressed, severe, without psychotic features Status: Acute (5) Chronic back pain: Assessment/Problem Details: Patient reports severe back pain Code(s): M54.9 - Dorsalgia, unspecified; G89.29 - Other chronic pain Status: Chronic Plan 1. Continue home medication 2. Echocardiogram noted demonstrating normal LV systolic function 3. Plan to proceed with Lexiscan myocardial fusion study Documented By: Itzel Adams MD 07/19/2234 Signed By: <Electronically signed by MD Itzel Adams> 07/19/22834 [facility] Work Phone: Progress note Author Sang Bauer [facility] July 19, 2022 4:57pm Note Date/Time July 19, 2022 4:57pm [facility] [address] [place] [address] Hospitalist Progress Note Signed Patient: Taylor Mcclellan SR MR#: [id number] : 1955 Acct:[id number] Age/Sex: 66 / M Adm Date: 2 Loc: Room: [address] [place] [address] Type: ADM INOo Attending Dr: Sang Bauer MD Copies to: ~ Date of Service: 07/19/2022 Subjective Subjective Narrative: Patient seen and examined. Patient is comfortably sitting in chair having lunch. Denies any chest pain, shortness of breath, cough, fever and chills. Exam Physical Exam Vital Signs: Temp Pulse Resp BP Pulse Ox O2 Del Method 97.4 F L 64 18 129/76 94 L Room Air 07/19/22 16:00 07/19/22 16:00 07/19/22 16:00 07/19/22 16:00 07/19/22 16:00 07/19/22 16:00 Narrative: General: Awake, alert, oriented x3 not in acute distress HEENT: Normocephalic, atraumatic, PERRLA, normal mucosa Cardiovascular: Regular rate and rhythm , S1-S2 heard, no murmurs or gallops Lungs: No wheezing or rhonchi heard Gastrointestinal: Soft, nontender, bowel sounds heard Extremities: No edema Neurological: no sensory or motor deficit Skin: Dry and warm, no rashes or lesions Psych: Normal mood and affect Objective Lab Results CBC & Chem 7: 07/17/22 15:44 07/17/22 15:44 Microbiology Results Microbiology 07/17/22 18:00 Blood - Left Hand Blood Culture - Preliminary No Growth 1 Day 07/17/22 18:05 Blood - Left Antecubital Blood Culture - Preliminary No Growth 1 Day Meds Allergies and Active Meds Allergies chlordiazepoxide [From Librax (with clidinium)] Allergy (Verified 07/17/22 20:36) Unknown Reaction clidinium [From Librax (with clidinium)] Allergy (Verified 07/17/22 20:36) Unknown Reaction simvastatin [From Zocor] Allergy (Verified 07/17/22 20:36) Unknown Reaction venlafaxine [From Effexor] Allergy (Verified 07/17/22 20:36) Unknown Reaction atorvastatin [From Lipitor] Adverse Reaction (Verified 07/17/22 20:36) Unknown Reaction fentanyl Adverse Reaction (Verified 07/17/22 20:36) Unknown Reaction succinylcholine Adverse Reaction (Verified 07/17/22 20:36) Unknown Reaction Active Meds: Active Medications Generic Name Dose Route Start Last Admin Trade Name Freq PRN Reason Stop Dose Admin Acetaminophen 650 mg 07/17/22 18:33 07/19/22 16:17 Acetaminophen 325 Mg Tablet PO 07/17/23 18:32 650 mg Q6HR PRN Administration Pain Scale 1 - 3 or fever Albuterol 2 puff 07/17/22 18:36 Albuterol Hfa 60 Puff/8 Gram Inhaler INHALATION 07/17/23 18:35 Q4H PRN Shortness Of Breath Or Wheezing Amitriptyline HCl 50 mg 07/18/22 22:00 07/18/22 21:07 Amitriptyline 50 Mg Tablet PO 07/18/23 21:59 50 mg QHS AMISHA Administration Aspirin 81 mg 07/18/22 12:00 07/19/22 09:09 Aspirin 81 Mg Tab.Chew PO 07/18/23 11:59 81 mg DAILY AMISHA Administration Atorvastatin Calcium 40 mg 07/19/22 09:00 07/19/22 09:10 Atorvastatin 40 Mg Tablet PO 07/19/23 08:59 40 mg DAILY AMISHA Administration Brexpiprazole 3 mg 07/19/22 09:00 07/19/22 13:27 Brexpiprazole 1 Mg Tablet PO 07/19/23 08:59 3 mg DAILY AMISHA Administration Bupropion HCl 150 mg 07/18/22 12:00 07/19/22 09:09 Bupropion 150 Mg Tab.Er.24h PO 07/18/23 11:59 150 mg DAILY AMISHA Administration Buspirone HCl 10 mg 07/18/22 12:00 07/19/22 09:09 Buspirone 10 Mg Tablet PO 07/18/23 11:59 10 mg BID AMISHA Administration Carvedilol 12.5 mg 07/18/22 12:00 07/19/22 16:17 Carvedilol 12.5 Mg Tablet PO 07/18/23 11:59 12.5 mg BID.WITH.MEALS AMISHA Administration Celecoxib 200 mg 07/18/22 12:00 07/19/22 09:09 Celecoxib 200 Mg Capsule PO 07/18/23 11:59 200 mg DAILY AMISHA Administration Citalopram Hydrobromide 20 mg 07/18/22 12:00 07/19/22 09:09 Citalopram 20 Mg Tablet PO 07/18/23 11:59 20 mg DAILY AMISHA Administration Clopidogrel Bisulfate 75 mg 07/18/22 12:00 07/19/22 09:09 Clopidogrel Bisulfate 75 Mg Tablet PO 07/18/23 11:59 75 mg DAILY AMISHA Administration Divalproex Sodium 500 mg 07/18/22 12:00 07/19/22 09:09 Divalproex Sodium 500 Mg Tablet.Dr PO 07/18/23 11:59 500 mg BID AMISHA Administration Enoxaparin Sodium 40 mg 07/18/22 10:00 07/19/22 09:08 Enoxaparin 40 Mg/0.4 Ml Syringe SUBCUT 07/18/23 09:59 40 mg DAILY@10 AMISHA Administration Hydralazine HCl 10 mg 07/17/22 18:33 07/17/22 23:22 Hydralazine 20 Mg/Ml Vial IV-PUSH 07/17/23 18:32 10 mg Q4H PRN Administration Hypertension Hydralazine HCl 25 mg 07/18/22 14:00 07/19/22 13:31 Hydralazine 25 Mg Tablet PO 07/18/23 13:59 25 mg TID AMISHA Administration Insulin Aspart 0 units 07/17/22 22:00 07/19/22 16:19 Insulin Aspart 300 Units/3 Ml Insuln.Pen SUBCUT 07/17/23 21:59 Not Given TID.WM.HS AMISHA Protocol Lamotrigine 100 mg 07/18/22 12:00 07/19/22 09:10 Lamotrigine 100 Mg Tablet PO 07/18/23 11:59 100 mg DAILY AMISHA Administration Lisinopril 10 mg 07/18/22 12:00 07/19/22 09:09 Lisinopril 10 Mg Tablet PO 07/18/23 11:59 10 mg DAILY AMISHA Administration Nitroglycerin 0.4 mg 07/17/22 18:33 Nitroglycerin 0.4 Mg Tab.Subl SUBLINGUAL 07/17/23 18:32 Q5M PRN Chest Pain Ondansetron HCl 4 mg 07/17/22 18:33 Ondansetron 4 Mg/2 Ml Vial IV-PUSH 07/17/23 18:32 Q8H PRN Nausea And Vomiting Ropinirole HCl 1 mg 07/18/22 11:07 07/18/22 21:06 Ropinirole 1 Mg Tablet PO 07/18/23 11:06 1 mg QHS PRN Administration Muscle Spasm Sodium Chloride 0 ml 07/17/22 15:40 07/18/22 21:10 Sodium Chloride 0.9 % 10 Ml Syringe IV-PUSH 07/17/23 15:39 10 ml PRN PRN Administration Flush Sodium Chloride 0 ml 07/19/22 09:00 Sodium Chloride 0.9 % 10 Ml Syringe IV-PUSH 07/19/23 08:59 PRN PRN Flush Tramadol HCl 50 mg 07/18/22 10:54 07/19/22 09:09 Tramadol 50 Mg Tablet PO 01/14/23 10:53 50 mg Q8H PRN Administration Pain A&P - Hospitalist Assessment/Plan (1) Chest pain: (2) Hx of CABG: (3) Coronary artery disease: (4) Diabetes mellitus: (5) HTN (hypertension): Plan Patient had no chest pain since he came in he is currently hemodynamically stable and is afebrile, saturating well on room air with no respiratory complaints Labs showed no leukocytosis with normal BUN/creatinine EKG showed no acute ischemic changes Troponin within normal limits Urine toxicology positive for benzos. Cardiology on board, scheduled for stress test Echocardiogram showed EF 60 to 65%, mild diastolic dysfunction with no significant valvular abnormality LDL 81, A1c 5.6 Fall precautions PT/OT DVT prophylaxis CODE STATUS full code Documented By: Sang Bauer MD 07/19/22 2047 Signed By: <Electronically signed by Sang Bauer MD> 07/19/22 6720 [facility] Work Phone: Progress note Author Itzel Adams [facility] July 20, 2022 8:06am Note Date/Time July 20, 2022 8:06am [facility] [address] [place] [address] Cardiology Progress Note Signed Patient: Taylor Mcclellan SR MR#: [id number] : 1955 Acct:[id number] Age/Sex: 66 / M Adm Date: 2 Loc: Room: [address] [place] [address] Type: ADM INOo Attending Dr: Sang Bauer MD Copies to: ~ Date of Service: 07/20/2022 Subjective Interval history: Patient resting comfortably. Continue complain of back pain. No further chest pain. Results of stress test showed no evidence of ischemia and preserved LV systolic function Exam Physical Exam Vital Signs: Temp Pulse Resp BP Pulse Ox O2 Del Method 97.5 F L 71 16 130/75 95 Room Air 07/20/22 07:59 07/20/22 07:59 07/20/22 07:59 07/20/22 07:59 07/20/22 07:59 07/20/22 07:59 Eyes General: appearance normal, both eyes and all related structures Pupils: PERRL Neck Neck: normal visual inspection, supple and no lymphadenopathy noted Neck mass: No Thyroid: thyroid normal Carotids: normal carotid upstroke Chest Chest palpation & inspection: normal inspection of the chest Resp Effort & Inspection: normal respiratory effort Auscultation: clear to auscultation bilaterally Cardio Palpation: normal PMI Rate: regular rate Rhythm: regular rhythm Heart Sounds: S1 normal and S2 normal GI Palpation: soft and no hepatosplenomegaly Percussion: normal to percussion Auscultation: normal bowel sounds Extrem General: full ROM, capillary refill normal and no clubbing, cyanosis or edema Objective Labs CBC & Chem 7: 07/17/22 15:44 07/17/22 15:44 Labs: Laboratory Results - last 24 hr 07/19/22 07/19/22 07/19/22 13:33 16:19 20:26 POC Glucose 135 108 127 POC Glucose Comment Glu2: cleaned meter 07/20/22 06:30 POC Glucose 146 POC Glucose Comment Glu2: cleaned meter A&P - Cardiology (1) Chest pain: Assessment/Problem Details: Patient reported brief episode of chest pain. Cardiac enzyme and EKG appears usman negative. Patient admitted to severe distress due to severe back pain Code(s): R07.9 - Chest pain, unspecified Status: Acute (2) Coronary artery disease: Assessment/Problem Details: Patient report history of bypass surgery he think it is a single-vessel bypass done in [place] record is not available patient and his cannot remember which hospital he had his surgery at. He does not follow with cardiology Qualifiers: Coronary Disease-Associated Artery/Lesion type: [place] artery [place] vs. transplanted heart: [place] heart Associated angina: without angina Qualified Code(s): I25.10 - Atherosclerotic heart disease of [place] coronary artery without angina pectoris Code(s): I25.10 - Atherosclerotic heart disease of [place] coronary artery without angina pectoris Status: Acute (3) Hx of CABG: Code(s): Z95.1 - Presence of aortocoronary bypass graft Status: Acute (4) Bipolar 1 disorder, depressed, severe: Code(s): F31.4 - Bipolar disorder, current episode depressed, severe, without psychotic features Status: Acute (5) Chronic back pain: Assessment/Problem Details: Patient reports severe back pain Code(s): M54.9 - Dorsalgia, unspecified; G89.29 - Other chronic pain Status: Chronic Plan 1. Continue home medication 2. Echocardiogram noted demonstrating normal LV systolic function 3. Stress test negative for ischemia or PR. Patient can be discharged home cardiac chew Documented By: Itzel Adams MD 07/20/22 08 Signed By: <Electronically signed by MD Itzel Adams> 07/20/22 08 [facility] Work Phone: Summary Purpose Family History No Family History Records Found Relationship Condition Age at Onset Recorded Date/T mahi Not Specified Cardiac disease Unknown Epilepsy Unknown brother Epilepsy Unknown Advance Directives No Advanced Directives Records Found Advance Directive Response Recorded Date/ Time Advance Directives Yes January 23 9 4:30pm Chief Complaint and Reason for Visit Chief Complaint chest pain Reason for Visit Chest pain Coronary artery disease Generalized weakness Hx of CABG Diabetes mellitus HTN (hypertension) Chief Complaint chest pain Reason for Visit Bipolar 1 disorder, depressed, severe Chest pain Coronary artery disease Generalized weakness Hx of CABG Chronic back pain Diabetes mellitus HTN (hypertension) Chief Complaint M96.1 M47.817 M46.1 G89.29 Additional Source Comments (unrecognized sect ion and content) No Status Records FoundNo Status Records FoundNo Status Records FoundNo Status Records FoundNo Status Records FoundNo Status Records Found INFORMATION SOURCE (unrecogn ized section and content) DATE CREATED AUTHOR 10/15/2019 [facility] DATE CREATED AUTHOR AUTHOR'S ORGANIZ ATION 11/29/2021 [facility] DATE CREATED AUTHOR AUTHOR'S ORGANIZ ATION 01/21/2023 [facility] DATE CREATED AUTHOR AUTHOR'S ORGANIZ ATION 01/23/2023 [facility] DATE CREATED AUTHOR AUTHOR'S ORGANIZ ATION 04/30/2023 [facility] DATE CREATED AUTHOR AUTHOR'S ORGANIZ ATION 08/18/2023 [facility] Care Teams (unrecognized sec tion and content) Team Status: Active Member Role Status Sabrina Reynolds MD Primary Care Provider Active Segundo Huston MD Emergency Provider Active Sang Bauer MD Admit Provider, Attending Provider A stefania Mckeon RN Other Provider Active Lawrence Lee DO Other Provider Active Kaden Summers MD Other Provider Active Edinson Bustamante MD Other Provider Active Itzel Adams MD Other Provider Active Ramos Fraga MD Other Provider Active Lilia Orourke APRN Other Provider Active Cinthia Rae MD Other Provider Active Ramón Ayala MD Other Provider Active Flavio Ramirez MD Other Provider Active Pily Winslow [facility]- Other Provider Active Adelaide Leonardo MD Other Provider Active Team Status: Active Member Role Status Sabrina Reynolds MD Primary Care Provider Active Team Status: Inactive Member Role Status Sabrina Reynolds MD Primary Care Provider Active Segundo Huston MD Emergency Provider Active Sang Bauer MD Admit Provider, Attending Provider A stefania Adams MD Referring Provider Active Team Status: Inactive Member Role Status Sabrina Reynolds MD Primary Care Provider Active Benson S Domingo , MD Attending Provider Active Goals (unrecognized section and content) Goals may be documented in a n alternate sectionNo InformationNo InformationNo InformationNo InformationNo InformationNo Information REASON FOR VISIT (unrecogniz ed section and content) REF BY DR REYNOLDS FOR CHRONIC HECTOR MBAR AND NECK PAINWaiting for call backPLAVIXCAUDAL EPIDURAL WITH RACZF/U AFTER CAUDAL W RACZPainreferral update FOR RECORDS PERTAINING TO PATIENTS WHO ARE OR HAVE BEEN ENROLLED IN A CHEMICAL DEPENDENCY/SUBSTANCEABUSE PROGRAM, SOME INFORMATION MAY BE OMITTED. This clinical summary was aggregated from multiple sources. Caution should be exercised in using it in the provision of clinical care. This summary normalizes information from multiple sources, and as a consequence, information in this document may materially change the coding, format and clinical context of patient data. In addition, data may be omitted in some cases. CLINICAL DECISIONS SHOULD BE BASED ON THE PRIMARY CLINICAL RECORDS. [email or web address] provides no warranty or guarantee of the accuracy or completeness of information in this document.
--- NOTE | 2023-09-13 12:06 | XR_ITS ---
The [address] [address] Patient Name: TAYLOR MCCLELLAN MRN: [id number] date: 1955 Sex: M Assigned Patient Location: [facility] Current Patient Location: [facility] Accession/Order Number: [id number] Exam Date: 09/13/2023 12:11 Report Date: 09/13/2023 13:06 At the request of: GENESIS REYNOLDS Procedure: XR lumbar spine 2-3V EXAMINATION: XR lumbar spine 2-3V HISTORY: muscle weakness M62.81, Sciatica M54.30 COMPARISON: No relevant comparison available. FINDINGS: BONES: Normal alignment with no acute fracture or spondylolisthesis. Posterior decompression and right transpedicular fusion L4-L5 . Moderate spondylosis and facet osteoarthropathy DISC SPACES: Multilevel disc space narrowing with endplate sclerosis most significant L4-S1 PARASPINOUS: Negative. No paraspinous abnormality is seen. OTHER: Extensive atherosclerosis. Right common iliac artery stent XR/XR lumbar spine 2-3V IMPRESSION: Moderate diffuse degenerative changes Electronically authenticated by: SARAI KIRKLAND Date: 09/13/2023 13:06
== END 2023-09-13 11:58 | disposition home or self-care (01) ==
LOC: RAD 11:59
PROVIDERS: PCP Family Medicine; Visit Provider Family Medicine
DX: M62.81 Muscle weakness (generalized) (principal); M54.30 Sciatica, unspecified side; M54.16 Radiculopathy, lumbar region; M51.36 Other intervertebral disc degeneration, lumbar region
CPT/HCPCS: 72100

== ENCOUNTER 2023-09-18 17:40 | Emergency (ER) | payer MEDICARE, BC, SELFPAY ==
[2023-09-18 17:49] VITALS: BP 152/90; PULSE 94; RESP 18; TEMP 36.6; O2SAT 97; BMI 31.6
--- OUTSIDE RECORDS SUMMARY | 2023-09-18 17:51 | XMS_ITS | CCD ---
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 Name Role Phone Bro Sanford Primary Care Physician Unavailab Lior Dow Attending Physician Unavailable MD Genesis Reynolds Primary Care Provider MD Segundo Huston Emergency Provider MD Sang Bauer Admit Provider MD Lizette Sang Attending Provider LEXIE Mckeon Other Provider Unavailable DO Lawrence Lee Other Provider MD Kaden Summers Other Provider MD Edinson Bustamante Other Provider MD Itzel Adams Other Provider MD Ramos Fraga Other Provider LILA Hopper Other Provider MD Cinthia Rae Other Provider MD Ramón Ayala Other Provider MD Flavio Ramirez Other Provider Goldy [facility] Pily Espinal Other Provider MD Adelaide Leonardo Other Provider MD Itzel Adams Referring Provider MD Genesis Reynolds Primary Care Provider MD [address] S Attending Provider [phone] Unavailable GAIL [address] DR [place] [...] Primary Care Unavailable GAIL ., DR HURTADO Consulting Unavailable GAIL ., [...] [Amitriptyline] Drug Allergy 01-24-20 19 Unknown Reaction [facility] (12 sources) atorvastatin; Translations: [atorvastatin] Drug Allergy 01-24-20 Unknown Reaction, Unknown [facility] (6 sources) chlordiazePOXIDE; Translations: [chlordiazepoxide] Drug Allergy 01-24-20 Unknown Reaction [facility] (6 sources) clidinium; Translations: [clidinium] Drug Allergy 01-24-20 Unknown Reaction [facility] (13 sources) fentaNYL; Translations: [Fentanyl] Drug Allergy 01-24-20 Unknown Reaction, Unknown [facility] (6 sources) venlafaxine; Translations: [venlafaxine] Drug Allergy 01-24-20 19 Unknown Reaction [facility] (2 sources) Citalopram; Translations: [Citalopram] Drug Allergy 07-17-20 Unknown Reaction [facility] (4 sources) Simvastatin; Translations: [simvastatin] Drug Allergy 07-17-20 Unknown Reaction [facility] (5 sources) Succinylcholine; Translations: [Succinylcholine] Drug Allergy 09-09-19 05 Unknown Reaction [facility] (7 sources) Amitriptyline; Translations: [Elavil] Drug Allergy 04-20-20 14 Unknown [facility] (6 sources) chlordiazePOXIDE / clidinium Drug Allergy Unknown [id number] Other (7 sources) venlafaxine; Translations: [Effexor] Drug Allergy 04-06-20 14 Unknown [facility] (1 source) buPROPion Drug Allergy [facility] (1 source) Citalopram Drug Allergy 12-31-19 20 [facility] (1 source) mirabegron Drug Allergy [facility] (1 source) Simvastatin Drug Allergy [facility] (1 source) tiZANidine Drug Allergy [facility] Medications Current Medications Medication Drug Class(es) [...] tablet by mouth twice daily Hydrocodone-Aceta minophen (Mercer) 5-325 mg tablet Discontinued 1 TAB PO [...] Coronary arteriosclerosis; Translations: [Atherosclerotic heart disease of [place] coronary artery without angina pectoris] Onset: 01-21-2023 [...] 07-17-2022 Episodic Other aftercare (1 source) Other retirement (current) drug therapy; Translations: [OTH NURSING HOME CURRENT DRUG THERAPY] Onset: 01-21-2023 Episodic Other aftercare (1 source) [facility] (current) use of antithrombotics/antip latelets; Translations: [ART THERAPY SPECIALIST 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/ANTIPLAT LETS] Onset: 12-20-2022 Episodic Other circulatory [...] Onset: 08-08-2022 Episodic Other aftercare (1 source) 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 [address] Framing Carpenter: Sarai Howell MD [facility],Blood 04-30-2023 Cult,Blood Specimen Description .BLOOD Special Requests LAC, 20ML Culture NO GROWTH 5 DAYS Report Status FINAL 04/30/2023 [facility] Comment on above: Performed By: #### B C #### [facility] [address] [place] [address] Framing Carpenter: Sarai Howell MD Lipid Profileon 04-26-2023 Cholesterol [Mass/Vol] 171 mg/dL Normal <200 [facility] Comment on above: Result Comment: Cholesterol Guidelines: <200 Desirable 200-240 Borderline >240 Undesirable Performed By: #### L IPR #### [address] [address] Framing Carpenter: Spencer Tapia MD Cholesterol in HDL [Mass/Vol] 30 mg/dL Low >40 [facility] Comment on above: Result Comment: HDL Guidelines: <40 Undesirable 40-59 Borderline >59 Desirable Performed By: #### L IPR #### [address] [address] Framing Carpenter: Spencer Tapia MD Cholesterol in LDL [Mass/Vol] 112 mg/dL Normal 0-130 [facility] Comment on above: Result Comment: LDL Guidelines: <100 Desirable 100-129 Near to/above Desirable 130-159 Borderline >159 Undesirable Direct (measured) LDL and calculated LDL are not interchangeable tests. Performed By: #### L IPR #### [address] [address] Framing Carpenter: Spencer Tapia MD Cholesterol.total/Chol esterol in HDL [Mass ratio] 5.7 {ratio} High <5 [facility] Comment on above: Performed By: #### L IPR #### [address] [address] Framing Carpenter: Spencer Tapia MD Triglyceride [Mass/Vol] 143 mg/dL Normal <150 [facility] Comment on above: Result Comment: Triglyceride Guidelines: <150 Desirable 150-199 Borderline 200-499 High >499 Very high Based on AHA Guidelines for fasting triglyceride, June 2012. Performed By: #### L IPR #### [address] [address] Framing Carpenter: Spencer Tapia MD Basic Metabolic Profon 04-25 Anion gap [Moles/Vol] 13 mmol/L Normal 9-17 [facility] Comment on above: Performed By: #### T ANJALI AYALA, BMP #### [facility] [address] [place] [address] Framing Carpenter: Sarai Howell MD BUN/CRE Ratio 14 Normal 9-20 [facility] Comment on above: Performed By: #### T ANJALI AYALA, BMP #### [facility] [address] [place], [place] [id number] Framing Carpenter: Sarai Howell MD Calcium [Mass/Vol] 9.3 mg/dL Normal 8.6-10.4 [facility] Comment on above: Performed By: #### T ANJALI AYAAL, BMP #### [address] [place], [place] [id number] Framing Carpenter: Sarai Howell MD Chloride [Moles/Vol] 101 mmol/L Normal 98-107 [facility] Comment on above: Performed By: #### T ANJALI AYALA, BMP #### [facility] [address] [place] [address] Framing Carpenter: Sarai Howell MD CO2 [Moles/Vol] 25 mmol/L Normal 20-31 [facility] Comment on above: Performed By: #### ANJALI PRADHAN, BMP #### [facility] [address] [place], [place] [address] Framing Carpenter: Sarai Howell MD Creatinine [Mass/Vol] 1.3 mg/dL High 0.7-1.2 [facility] Comment on above: Performed By: #### ANJALI PRADHAN, BMP #### [facility] [address] [place] [address] Framing Carpenter: Sarai Howell MD GFR/1.73 sq M.predicted among non-blacks MDRD (S/P/Bld) [Vol rate/Area] mL/min/{1.73_m2} Normal >60 [facility] Comment on above: Result Comment: These [...] By: #### T ANJALI AYALA, BMP #### [facility] [address] [place] [address] Framing Carpenter: Sarai Howell MD Glucose [Mass/Vol] 87 mg/dL Normal 70-99 [facility] Comment on above: Performed By: #### ANJALI PRADHAN, BMP #### [facility] [address] [place], [place] [address] Framing Carpenter: Sarai Howell MD Potassium [Moles/Vol] 3.9 mmol/L Normal 3.7-5.3 [facility] Comment on above: Performed By: #### ANJALI PRADHAN, BMP #### [facility] [address] [place] [address] [place] [address] Framing Carpenter: Sarai Howell MD Sodium [Moles/Vol] 139 mmol/L Normal 135-144 [facility] Comment on above: Performed By: #### ANJALI PRADHAN, BMP #### [facility] [address] [place], [place] [id number] Framing Carpenter: Sarai Howell MD Urea nitrogen [Mass/Vol] 18 mg/dL Normal 8-23 [facility] Comment on above: Performed By: #### ANJALI PRADHAN, BMP #### [facility] [address] [place] [address] Framing Carpenter: Sarai Howell MD CBC with Diffon 04-25-2023 Abs. Basophil 0.04 k/uL Normal 0.00-0.20 [facility] Comment on above: Performed By: #### ANJALI PRADHAN, BMP #### [facility] [address] [place] [address] [place] [address] Framing Carpenter: Sarai Howell MD Abs.Imm.Granulocyte 0.04 k/uL Normal 0.00-0.30 [facility] Comment on above: Performed By: #### ANJALI PRADHAN, BMP #### [facility] [address] [place] [address] Framing Carpenter: Sarai Howell MD Abs.Neutrophil (Seg) 5.64 k/uL Normal 1.50-8.10 [facility] Comment on above: Performed By: #### ANJALI PRADHAN, BMP #### [address] [place] [address] Framing Carpenter: Sarai Howell MD Basophils/100 WBC (Bld) 1 % Normal 0-2 [facility] Comment on above: Performed By: #### ANJALI PRADHAN, BMP #### [address] [place] [address] Framing Carpenter: Sarai Howell MD Eosinophils (Bld) [#/Vol] 0.09 10*3/uL Normal 0.00-0.44 [facility] Comment on above: Performed By: #### ANJALI PRADHAN, BMP #### [address] [place], [place] [address] Framing Carpenter: Sarai Howell MD Eosinophils/100 WBC (Bld) 1 % Normal 1-4 [facility] Comment on above: Performed By: #### ANJALI PRADHAN, BMP #### [address] [place] [address] Framing Carpenter: Sarai Howell MD Erythrocyte distribution width (RBC) [Ratio] 15.4 % High 11.8-14.4 [facility] Comment on above: Performed By: #### ANJALI PRADHAN, BMP #### [facility] [address] [place], [place] [id number] Framing Carpenter: Sarai Howell MD Hematocrit (Bld) [Volume fraction] 40.6 % Low 40.7-50.3 [facility] Comment on above: Performed By: #### ANJALI PRADHAN, BMP #### [address] [place], [facility] Framing Carpenter: Sarai Howell MD Hemoglobin (Bld) [Mass/Vol] 13.1 g/dL Normal 13.0-17.0 [facility] Comment on above: Performed By: #### ANJALI PRADHAN, BMP #### [address] [place], [place] [address] Framing Carpenter: Sarai Howell MD Immature granulocytes/100 WBC (Bld) 1 % High 0 [facility] Comment on above: Performed By: #### ANJALI PRADHAN, BMP #### [address] [place], [facility] Framing Carpenter: Sarai Howell MD Lymphocytes (Bld) [#/Vol] 1.86 10*3/uL Normal 1.10-3.70 [facility] Comment on above: Performed By: #### ANJALI PRADHAN, BMP #### [address] [place], [facility] Framing Carpenter: Sarai Howell MD Lymphocytes/100 WBC (Bld) 22 % Low 24-43 [facility] Comment on above: Performed By: #### ANJALI PRADHAN, BMP #### [address] [place] [address] Framing Carpenter: Sarai Howell MD MCH (RBC) [Entitic mass] 29.0 pg Normal 25.2-33.5 [facility] Comment on above: Performed By: #### ANJALI PRADHAN, BMP #### [facility] [address] [place], [facility] Framing Carpenter: Sarai Howell MD MCHC (RBC) [Mass/Vol] 32.3 g/dL Normal 28.4-34.8 [facility] Comment on above: Performed By: #### ANJALI PRADHAN, BMP #### [facility] [address] [place] [address] Framing Carpenter: Sarai Howell MD MCV (RBC) [Entitic vol] 89.8 fL Normal 82.6-102.9 [facility] Comment on above: Performed By: #### ANJALI PRADHAN, BMP #### [facility] [address] [place] [address] Framing Carpenter: Sarai Howell MD Monocytes (Bld) [#/Vol] 0.83 10*3/uL Normal 0.10-1.20 [facility] Comment on above: Performed By: #### ANJALI PRADHAN, BMP #### [address] [place] [id number] Framing Carpenter: Sarai Howell MD Monocytes/100 WBC (Bld) 10 % Normal 3-12 [facility] Comment on above: Performed By: #### ANJALI PRADHAN, BMP #### [facility] [address] [place] [address] Framing Carpenter: Sarai Howell MD Neutrophil (Seg) 65 % Normal 36-65 [facility] Comment on above: Performed By: #### T ANJALI AYALA, BMP #### [facility] [address] [place] [address] Framing Carpenter: Sarai Howell MD NRBC Automated 0.0 per 100 WBC Normal 0.0 [facility] Comment on above: Performed By: #### T ANJALI AYALA, BMP #### [facility] [address] [place] [address] Framing Carpenter: Sarai Howell MD Platelet mean volume (Bld) [Entitic vol] 11.9 fL Normal 8.1-13.5 [facility] Comment on above: Performed By: #### T ANJALI AYALA, BMP #### [facility] [address] [place] [id number] Framing Carpenter: Sarai Howell MD Platelets (Bld) [#/Vol] 254 10*3/uL Normal 138-453 [facility] Comment on above: Performed By: #### T ANJALI AYALA, BMP #### [facility] [address] [place] [address] Framing Carpenter: Sarai Howell MD RBC (Bld) [#/Vol] 4.52 10*6/uL Normal 4.21-5.77 [facility] Comment on above: Performed By: #### ANJALI PRADHAN, BMP #### [facility] [address] [place] [address] Framing Carpenter: Sarai Howell MD WBC (Bld) [#/Vol] 8.5 10*3/uL Normal 3.5-11.3 [facility] Comment on above: Performed By: #### ANJALI PRADHAN, BMP #### [address] [place] [id number] Framing Carpenter: Sarai Howell MD CT HEAD WO CONTRASTon [...] Babs Mae MD 04/25/23 Final result Normal [facility] Flu A/B Ag Detectionon 04-25 Flu A Ag Detection Negative Normal NEG [facility] Comment on above: Result Comment: for Influenza A Antigen Performed By: #### L ACTIC #### [facility] [address] [place] [address] [place] [address] Framing Carpenter: Sarai Howell MD Flu B Ag Detection Negative Normal NEG [facility] Comment on above: Result Comment: for Influenza B Antigen. Performed By: #### L ACTIC #### [address] [place] [address] Framing Carpenter: Sarai Howell MD Lactic Acidon 04-25-2023 Lactate [Moles/Vol] 1.3 mmol/L Normal 0.5-2.2 [facility] Comment on above: Performed By: #### L ACTIC #### [facility] [address] [place] [address] [place] [address] Framing Carpenter: Sarai Howell MD [id number] 04-25-2023 SARS-CoV-2 (COVID-19) RNA JOSÉ MIGUEL+probe Ql (Unsp spec) Not detected Normal NOTDET [facility] Comment on above: Result Comment: Rapid [...] management decisions. Fact sheet for Healthcare Providers: https://www.fda.gov/media/722377/download Fact sheet for Patients: https://www.fda.gov/media/971430/download Methodology: Isothermal Nucleic Acid Amplification Performed By: #### C OVRB #### [address] [place] [id number] Framing Carpenter: Sarai Howell MD Troponinon 04-25-1558 Troponin, High Sens 26 ng/L High 022 [facility] Comment on above: Result Comment: High Sensitivity Troponin values cannot be compared with other Troponin methodologies. Performed By: #### T ROPI #### [address] [place] [id number] Framing Carpenter: Sarai Howell MD Troponin, High Sens 27 ng/L High 022 [facility] Comment on above: Result Comment: High Sensitivity Troponin values cannot be compared with other Troponin methodologies. Performed By: #### T ROPI, CDP, BMP #### [address] [place] [address] Framing Carpenter: Sarai Howell MD UA w/Reflex Cultureon 2022 Bilirubin, SemiQt,Ur SMALL Abnormal NEG [facility] Comment on above: Performed By: #### L ACTIC #### [address] [place] [address] Framing Carpenter: Sarai Howell MD Blood, Urine 3+ Abnormal NEG [facility] Comment on above: Performed By: #### L ACTIC #### [facility] [address] [place], [place] [phone] Framing Carpenter: Sarai Howell MD Clarity (U) Cloudy Abnormal CLEAR [facility] Comment on above: Performed By: #### L ACTIC #### [facility] [address] [place], [place] [address] Framing Carpenter: Sarai Howell MD Color (U) Yellow Normal YEL [facility] Comment on above: Performed By: #### L ACTIC #### [facility] [address] [place], [place] [address] Framing Carpenter: Sarai Howell MD Glucose Ql (U) Negative Normal NEG [facility] Comment on above: Performed By: #### L ACTIC #### [facility] [address] [place] [address] [place], [place] [id number] Framing Carpenter: Sarai Hoewll MD Ketones Ql (U) 1+ mg/dL Abnormal NEG [facility] Comment on above: Performed By: #### L ACTIC #### [facility] [address] [place] [address] [place], [place] 8696183 Framing Carpenter: Sarai Howell MD Leukocyte esterase Test strip Ql (U) TRACE Abnormal NEG [facility] Comment on above: Performed By: #### L ACTIC #### [facility] [address] [place], [place] [address]383 Framing Carpenter: Sarai Howell MD Nitrite,Ur Negative Normal [facility] Comment on above: Performed By: #### L ACTIC #### [facility] [address] [place], [place] [address] Framing Carpenter: Sarai Howell MD PH,Ur 6.0 Normal 5.0-9.0 [facility] Comment on above: Performed By: #### L ACTIC #### [facility] [address] [place], [place] [address] Framing Carpenter: Sarai Howell MD Protein Ql (U) 1+ mg/dL Abnormal NEG [facility] Comment on above: Performed By: #### L ACTIC #### [facility] [address] [place], [place] [address] Framing Carpenter: Sarai Howell MD Spec. [place],Ur >1.030 High 1.010-1.02 0 [facility] Comment on above: Performed By: #### L ACTIC #### [facility] [address] [place] [address] [place], [place] [address] Framing Carpenter: Sarai oHwell MD Urobilinogen,Ur Normal Normal 0.0-1.0 [facility] Comment on above: Performed By: #### L ACTIC #### [facility] [address] [place] [address] [place], [place] [address] Framing Carpenter: Sarai Howell MD Urinalysis,Microon 3 Bacteria 1+ Abnormal NONE [facility] Comment on above: Performed By: #### L ACTIC #### [facility] [address] [place] [address] [place], [place] [address]83 Framing Carpenter: Sarai Howell MD Epithelial cells LM Ql (Urine sed) None Normal 0-5 [facility] Comment on above: Performed By: #### L ACTIC #### [facility] [address] [place], [place] [address] Framing Carpenter: Sarai Howell MD Mucus Strands TRACE Abnormal NONE [facility] Comment on above: Performed By: #### L ACTIC #### [facility] [address] [place], [place] [address]83 Framing Carpenter: Sarai Howell MD Urine RBC's 20 TO 50 Normal 0-2 [facility] Comment on above: Performed By: #### L ACTIC #### [facility] [address] [place] [address] Framing Carpenter: Sarai Howell MD Urine WBC's 2 TO 5 Normal 0-5 [facility] Comment on above: Performed By: #### L ACTIC #### [facility] [address] [place] [address] Framing Carpenter: Sarai Howell MD XR CHEST PORTABLEon 04-25-20 [...] Sarai Henson MD 04/25/23 Final result Normal [facility] BNPon 01-17-2023 Natriuretic peptide B (Bld) [Mass/Vol] 210.0 pg/mL Normal <=900.0 [facility] Comment on above: Performed By: #### B TAR WORKER, CMADM, CMP ####[facility] [id number] [place] [address]Dr. Donna Malone CARDIAC MJ ADMITon 023 CK [Catalytic activity/Vol] 67 U/L Normal 39-308 [facility] Comment on above: Performed By: #### B TAR WORKER, CMADM, CMP ####[facility] [id number] [place] [id number]. Donna Malone CK.MB [Mass/Vol] 2.51 ng/mL Normal <=3.60 [facility] Comment on above: Performed By: #### B TAR WORKER, CMADM, CMP ####[facility] [address] [place], [place] [address]Dr. Donna Malone HSTROP 9.2 pg/mL Normal 4.0-76.1 [facility] Comment on above: Result Comment: CUT- OFF POINTS HAVE BEEN ESTABLISHED BASED ON THE FOURTH UNIVERSAL DEFINITIONS OF MYOCARDIALINFARCTION. THE UPPER REFERENCE LIMIT (URL) OF TROPONIN, DEFINED THE 99TH PERCENTILE OFcTnI DISTRIBUTION IN A REFERENCE POPULATION, HAS BEEN CONFIRMED THE DECISION THRESHOLDFOR GA DIAGNOSIS. Performed By: #### B TAR WORKER, CMADM, CMP ####[facility] [address] [place] [address]Dr. Donna Malone BINDU 68 ng/mL Normal 16-96 [facility] Comment on above: Performed By: #### B TAR WORKER, CMADM, CMP ####[facility] [address] [place], [place] [address]Dr. Donna Malone CBC AUTO DIFFon 01-17-2023 BASO # 0.1 103/ul Normal 0.0-0.1 [facility] Comment on above: Performed By: #### C BC ####[facility] [address] [place], [place] [address]Dr. Donna Malone Basophils/100 WBC (Bld) 0.8 % Normal 0.2-2.0 [facility] Comment on above: Performed By: #### C BC ####[facility] [address] [place], [place] [address]Dr. Donna Malone EO # 0.1 103/ul Normal 0.0-0.7 [facility] Comment on above: Performed By: #### C BC ####[facility] [address] [place], [place] [address]Dr. Donna Malone Eosinophils/100 WBC (Bld) 1.4 % Normal 0.9-7.0 [facility] Comment on above: Performed By: #### C BC ####[facility] [address] [place], [place] [address]Dr. Donna Malone Erythrocyte distribution width (RBC) [Ratio] 14.6 % Normal 11.0-15.0 [facility] Comment on above: Performed By: #### C BC ####[facility] [address] [place] [address]Dr. Donna Malone Hematocrit (Bld) [Volume fraction] 43.9 % Normal 42.0-54.0 [facility] Comment on above: Performed By: #### C BC ####[facility] [address] [place] [address]Dr. Donna Malone Hemoglobin (Bld) [Mass/Vol] 14.2 g/dL Normal 14.0-18.0 [facility] Comment on above: Performed By: #### C BC ####[facility] Pitpvlluyd[address] [place] [address]Dr. Donna Malone IG # 0.04 10e3/ul Critically high 0.00-0.03 [facility] Comment on above: Performed By: #### C BC ####[facility] Sbrkmlgbaj[address] [place], [place] [address]Dr. Donna Malone IG % 0.4 % Normal 0.0-0.5 [facility] Comment on above: Performed By: #### C BC ####[facility] Qdigbjhipi10[address] [place], [place] [address]Dr. Donna Malone LYMPH # 2.3 103/ul Normal 1.2-3.8 [facility] Comment on above: Performed By: #### C BC ####[facility] Ydwyfdvcwp4[address] [place], [place] [address]Dr. Donna Malone Lymphocytes/100 WBC (Bld) 25.4 % Normal 20.5-60.0 [facility] Comment on above: Performed By: #### C BC ####[facility] Czjbmzoddh7[address] [place], [place] [address]Dr. Donna Malone MANUAL DIFF REQ NO Normal [facility] Comment on above: Performed By: #### C BC ####[facility] Stjwlvhtsm[address] [place], [place] [address]Dr. Donna Malone MCH (RBC) [Entitic mass] 29.6 pg Normal 25.9-34.0 [facility] Comment on above: Performed By: #### C BC ####[facility] Qovworgmtt[address] [place] [id number]. Donna Malone MCHC (RBC) [Mass/Vol] 32.3 g/dL Normal 29.9-35.2 [facility] Comment on above: Performed By: #### C BC ####[facility] Jbuotstwrk08[address] [place] [id number]. Donna Malone MCV (RBC) [Entitic vol] 91.5 fL Normal 80.0-94.0 [facility] Comment on above: Performed By: #### C BC ####[facility] Snchalecog6427 [place] [id number]. Donna Malone MONO # 0.7 103/ul Normal 0.3-0.8 [facility] Comment on above: Performed By: #### C BC ####[facility] Wvczyqtjpq85[address] [place], [place] [address]Dr. Rubyyvan Malone Monocytes/100 WBC (Bld) 7.5 % Normal 1.7-12.0 [facility] Comment on above: Performed By: #### C BC ####[facility] Xqkmfyvqj[address] [place], [place] [id number]. Donna Malone NEUT # 5.9 103/ul Normal 1.4-6.5 [facility] Comment on above: Performed By: #### C BC ####[facility] Tutdxxwune8[address] [place], [place] [id number]. Donna Malone Neutrophils/100 WBC (Bld) 64.5 % Normal 43.0-75.0 [facility] Comment on above: Performed By: #### C BC ####[facility] Gggbikvcvj45[address] [place] [id number]. Donna Malone Platelet mean volume (Bld) [Entitic vol] 10.6 fL Normal 9.5-13.5 [facility] Comment on above: Performed By: #### C BC ####[facility] Qfybmnwzoz27[address] [place], [place] [address]Dr. Donna Faisal PLT 296 103/ul Normal 150-450 [facility] Comment on above: Performed By: #### C BC ####[facility] Sjkxuqddun9[address] [place] [id number]. Donna Malone RBC 4.80 106/ul Normal 4.70-6.10 [facility] Comment on above: Performed By: #### C BC ####[facility] Pbgllhtzpm5586 [place] [id number]. Donna Malone WBC 9.1 103/ul Normal 4.0-11.0 [facility] Comment on above: Performed By: #### C BC ####[facility] Yvcwypdmip[address] [place] [address]Dr. Donna Malone CT CSPINE WO CONon 3 CT CSPINE WO CON Normal [facility] CT HEAD WO CONon 3 CT HEAD WO CON Normal [facility] CT LSPINE WO CONon 3 CT LSPINE WO CON Normal [facility] PROF 14(COMP METB)on 023 Albumin [Mass/Vol] 3.3 g/dL Critically low 3.4-5.0 [facility] Comment on above: Performed By: #### B TAR WORKER, CMADM, CMP ####[facility] Cbpzoxrlkw2[address] [place] [address]Dr. Rubyyvan Faisal Albumin/Globulin [Mass ratio] 0.8 {ratio} Normal [facility] Comment on above: Performed By: #### B TAR WORKER, CMADM, CMP ####[facility] Wogkpbteji0243 [place] [address]Dr. Donna Malone ALP [Catalytic activity/Vol] 55 U/L Normal 46-116 [facility] Comment on above: Performed By: #### B TAR WORKER, CMADM, CMP ####[facility] Egutcyrchg6[address] [place] [address]Dr. Donna Malone ALT [Catalytic activity/Vol] 15 U/L Critically low 16-63 [facility] Comment on above: Performed By: #### B TAR WORKER, CMADM, CMP ####[facility] Zilfpswsbn4513 [place] [address]Dr. Donna Malone Anion gap [Moles/Vol] 9.6 mmol/L Normal [facility] Comment on above: Performed By: #### B TAR WORKER, CMADM, CMP ####[facility] Mdkurwjeas4574 [place] [address]Dr. Donna Malone AST [Catalytic activity/Vol] 14 U/L Critically low 15-37 [facility] Comment on above: Performed By: #### B TAR WORKER, CMADM, CMP ####[facility] Rokauydsut[address] [place] [address]Dr. Donna Malone Bilirubin [Mass/Vol] 0.2 mg/dL Normal 0.2-1.0 [facility] Comment on above: Performed By: #### B TAR WORKER, CMADM, CMP ####[facility] Dwdxiikzbc2390 [place] [address]Dr. Donna Malone Calcium [Mass/Vol] 8.6 mg/dL Normal 8.5-10.1 [facility] Comment on above: Performed By: #### B TAR WORKER, CMADM, CMP ####[facility] Lteawsflbw[address] [place], [place] [address]Dr. Donna Malone Chloride [Moles/Vol] 107 mmol/L Normal 98-107 [facility] Comment on above: Performed By: #### B TAR WORKER, CMADM, CMP ####[facility] Murzofichq94[address] [place], [place] [address]Dr. Donna Malone CO2 [Moles/Vol] 25.9 mmol/L Normal 21.0-32.0 [facility] Comment on above: Performed By: #### B TAR WORKER, CMADM, CMP ####[facility] Ezlvfhrnjh28[address] [place], [place] [address]Dr. Donna Malone Creatinine [Mass/Vol] 1.12 mg/dL Normal 0.70-1.30 [facility] Comment on above: Performed By: #### B TAR WORKER, CMADM, CMP ####[facility] Xtdroabggw7[address] [place] [address]Dr. Donna Malone EGFR-AF BURUNDIAN >60 Normal >=60 [facility] Comment on above: Performed By: #### B TAR WORKER, CMADM, CMP ####[facility] Xlcdjjtfrf[address] [place], [place] [address]Dr. Donna Malone EGFR-NON AF BURUNDIAN >60 Normal >=60 [facility] Comment on above: Performed By: #### B TAR WORKER, CMADM, CMP ####[facility] Ebdigxukoz15[address] [place] [address]Dr. Donna Malone Globulin (S) [Mass/Vol] 4.2 g/dL Normal [facility] Comment on above: Performed By: #### B TAR WORKER, CMADM, CMP ####[facility] Oxhlulzxun9958 [place] [address]Dr. Donna Malone Glucose [Mass/Vol] 163 mg/dL Critically high 74-106 [facility] Comment on above: Performed By: #### B TAR WORKER, CMADM, CMP ####[facility] Jbhavolcip6126 [place] [address]Dr. Donna Malone Potassium [Moles/Vol] 4.5 mmol/L Normal 3.5-5.1 [facility] Comment on above: Performed By: #### B TAR WORKER, CMADM, CMP ####[facility] Dvhmvalnia1759 [place] [address]Dr. Donna Malone Protein [Mass/Vol] 7.5 g/dL Normal 6.4-8.2 [facility] Comment on above: Performed By: #### B TAR WORKER, CMADM, CMP ####[facility] Lyjuxoqjkj4[address] [place] [address]Dr. Donna Malone Sodium [Moles/Vol] 138 mmol/L Normal 136-145 [facility] Comment on above: Performed By: #### B TAR WORKER, CMADM, CMP ####[facility] Jeypxmwxwp9516 [place] [address]Dr. Donna Malone Urea nitrogen [Mass/Vol] 11.0 mg/dL Normal 7.0-18.0 [facility] Comment on above: Performed By: #### B TAR WORKER, CMADM, CMP ####[facility] Xnlirqrjtg8641 [place] [address]Dr. Donna Malone Urea nitrogen/Creatinine [Mass ratio] 9.8 mg/mg Normal [facility] Comment on above: Performed By: #### B TAR WORKER, CMADM, CMP ####[facility] Ozlspjxtac78[address] [place] [address]Dr. Donna Malone PROTIMEon 01-17-2023 INR Coag (PPP) [Relative time] 0.94 {INR} Normal [facility] Comment on above: Performed By: #### P TT, PT ####[facility] Kzevhpugrg[address] [place], [place] [address]Dr. Donna Malone INR GUIDELINES SEE BELOW Normal [facility] Comment on above: Result Comment: FLORESITA RED INR: 2.0 - 3.0 CONDITIONS NOT LISTED BELOW 2.5 - 3.5 FOR PROSTHETIC HEART VALVE REPLACEMENT 2.5 - 3.5 RECURRENT THROMBOSIS Performed By: #### P TT, PT ####[facility] Tntavsnixp[address] [place], [place] [address]Dr. Donna Malone PT Coag (PPP) [Time] 10.0 s Normal 9.0-11.6 [facility] Comment on above: Performed By: #### P TT, PT ####[facility] Bduyztaxoe7[address] [place], [place] [address]Dr. Donna Malone PTTon 01-17-2023 aPTT Coag (Bld) [Time] 29.6 s Normal 22.3-36.2 [facility] Comment on above: Performed By: #### P TT, PT ####[facility] Ouarhyaphu[address] [place], [place] [address]Dr. Donna Malone CBC AUTO DIFFon 11-17-2022 BASO # 0.0 103/ul Normal 0.0-0.1 [facility] Comment on above: Performed By: #### C BC ####[facility] Sumjpaahqf[address] [place], [place] [address]Dr. Donna Malone Basophils/100 WBC (Bld) 0.2 % Normal 0.2-2.0 [facility] Comment on above: Performed By: #### C BC ####[facility] Rbyoleavcf[address] [place], [place] [address]Dr. Donna Malone EO # 0.0 103/ul Normal 0.0-0.7 [facility] Comment on above: Performed By: #### C BC ####[facility] Cnfqykxgnz6652 [place] [address]Dr. Donna Malone Eosinophils/100 WBC (Bld) 0.0 % Critically low 0.9-7.0 [facility] Comment on above: Performed By: #### C BC ####[facility] Cqyncrkvsm9259 [place] [address]Dr. Donna Malone Erythrocyte distribution width (RBC) [Ratio] 14.5 % Normal 11.0-15.0 [facility] Comment on above: Performed By: #### C BC ####[facility] Xdhtsaggha[address] [place], [place] [address]Dr. Donna Malone Hematocrit (Bld) [Volume fraction] 39.6 % Critically low 42.0-54.0 [facility] Comment on above: Performed By: #### C BC ####[facility] Jjbqjfemhv[address] [place], [place] [address]Dr. Donna Malone Hemoglobin (Bld) [Mass/Vol] 13.3 g/dL Critically low 14.0-18.0 [facility] Comment on above: Performed By: #### C BC ####[facility] Lkizrjnqvx[address] [place], [place] [address]Dr. Donna Malone IG # 0.06 10e3/ul Critically high 0.00-0.03 [facility] Comment on above: Performed By: #### C BC ####[facility] Wbsemezgyb25[address] [place], [place] [address]Dr. Donna Malone IG % 0.5 % Normal 0.0-0.5 [facility] Comment on above: Performed By: #### C BC ####[facility] Rrfyiyuzbm24[address] [place], [place] [address]Dr. Donna Malone LYMPH # 1.0 103/ul Critically low 1.2-3.8 [facility] Comment on above: Performed By: #### C BC ####[facility] Zdqpzsxigk[address] [place], [place] [address]Dr. Donna Malone Lymphocytes/100 WBC (Bld) 8.3 % Critically low 20.5-60.0 [facility] Comment on above: Performed By: #### C BC ####[facility] Vxjhyeritk67[address] [place] [address]Dr. Donna Malone MANUAL DIFF REQ NO Normal [facility] Comment on above: Performed By: #### C BC ####[facility] Lpzxalceof9735 [place] [id number]. Donna Malone MCH (RBC) [Entitic mass] 29.4 pg Normal 25.9-34.0 [facility] Comment on above: Performed By: #### C BC ####[facility] Nvlevwmbgh3014 [place] [address]Dr. Donna Malone MCHC (RBC) [Mass/Vol] 33.6 g/dL Normal 29.9-35.2 [facility] Comment on above: Performed By: #### C BC ####[facility] Jnhotdmglg2[address] [place], [place] [address]Dr. Donna Malone MCV (RBC) [Entitic vol] 87.6 fL Normal 80.0-94.0 [facility] Comment on above: Performed By: #### C BC ####[facility] Ajcxrgslhr6[address] [place], [place] [address]Dr. Donna Malone MONO # 0.8 103/ul Normal 0.3-0.8 [facility] Comment on above: Performed By: #### C BC ####[facility] Ngwudrthla4817 [place] [address]Dr. Donna Malone Monocytes/100 WBC (Bld) 6.6 % Normal 1.7-12.0 [facility] Comment on above: Performed By: #### C BC ####[facility] Xqlusvjsge33[address] [place], [place] [address]DrElizabeth Malone NEUT # 10.2 103/ul Critically high 1.4-6.5 [facility] Comment on above: Performed By: #### C BC ####[facility] Kaoncwumwt[address] [place], [place] [address]Dr. Donna Malone Neutrophils/100 WBC (Bld) 84.4 % Critically high 43.0-75.0 [facility] Comment on above: Performed By: #### C BC ####[facility] Gtikhkspti[address] [place] [address]Dr. Donna Malone Platelet mean volume (Bld) [Entitic vol] 11.5 fL Normal 9.5-13.5 [facility] Comment on above: Performed By: #### C BC ####[facility] Zrvjxcqpfq3312 [place] [address]Dr. Donna Malone PLT 204 103/ul Normal 150-450 [facility] Comment on above: Performed By: #### C BC ####[facility] Foxsnzugyp1799 [place] [address]DrElizabeth Malone RBC 4.52 106/ul Critically low 4.70-6.10 [facility] Comment on above: Performed By: #### C BC ####[facility] Oijdqxpxhi1823 [place] [address]DrElizabeth Malone WBC 12.0 103/ul Critically high 4.0-11.0 [facility] Comment on above: Performed By: #### C BC ####[facility] Xxxzmsdzwk8107 [place] [address]DrElizabeth Malone MAGNESIUMon 11-17-2022 Magnesium [Mass/Vol] 1.9 mg/dL Normal 1.8-2.4 [facility] Comment on above: Performed By: #### C MP, MG ####[facility] Noxezhbepo3930 [place] [address]DrElizabeth Malone PROF 14(COMP METB)on 023 Albumin [Mass/Vol] 3.2 g/dL Critically low 3.4-5.0 [facility] Comment on above: Performed By: #### C MP, MG ####[facility] Giocqbrqzl5586 [place] [address]DrElizabeth Malone Albumin/Globulin [Mass ratio] 1.0 {ratio} Normal [facility] Comment on above: Performed By: #### C MP, MG ####[facility] Okourhdwek5650 [place] [address]DrElizabeth Malone ALP [Catalytic activity/Vol] 51 U/L Normal 46-116 [facility] Comment on above: Performed By: #### C MP, MG ####[facility] Hwrxyzdfml8910 [place] [address]Dr. Donna Malone ALT [Catalytic activity/Vol] 16 U/L Normal 16-63 [facility] Comment on above: Performed By: #### C MP, MG ####[facility] Lrxaniwmyl5[address] [place], [place] [address]Dr. Donna Malone Anion gap [Moles/Vol] 14.7 mmol/L Normal [facility] Comment on above: Performed By: #### C MP, MG ####[facility] Ubraoaqwpg5[address] [place], [place] [address]Dr. Donna Malone AST [Catalytic activity/Vol] 24 U/L Normal 15-37 [facility] Comment on above: Performed By: #### C MP, MG ####[facility] Evmndffihc7[address] [place], [place] [address]Dr. Donna Malone Bilirubin [Mass/Vol] 0.5 mg/dL Normal 0.2-1.0 [facility] Comment on above: Performed By: #### C MP, MG ####[facility] Nicpcnypxs9157[address] [place], [place] [address]Dr. Donna Malone Calcium [Mass/Vol] 8.6 mg/dL Normal 8.5-10.1 [facility] Comment on above: Performed By: #### C MP, MG ####[facility] Jwwzbogesx0927[address] [place], [place] [address]Dr. Donna Faisal Chloride [Moles/Vol] 108 mmol/L Critically high 98-107 [facility] Comment on above: Performed By: #### C MP, MG ####[facility] Luyxxzerbz9227[address] [place], [place] [address]Dr. Rubyyvan Malone CO2 [Moles/Vol] 21.6 mmol/L Normal 21.0-32.0 [facility] Comment on above: Performed By: #### C MP, MG ####[facility] Egyynfihre[address] [place], [place] [address]Dr. Donna Malone Creatinine [Mass/Vol] 0.83 mg/dL Normal 0.70-1.30 [facility] Comment on above: Performed By: #### C MP, MG ####[facility] Civtnhdauv29[address] [place] [address]Dr. Donna Malone EGFR-AF BURUNDIAN >60 Normal >=60 [facility] Comment on above: Performed By: #### C MP, MG ####[facility] Oqdvmqjwnc5549 [place] [address]Dr. Donna Faisal EGFR-NON AF BURUNDIAN >60 Normal >=60 [facility] Comment on above: Performed By: #### C MP, MG ####[facility] Onftljqqeh1828[address] [place], [place] [address]Dr. Donna Faisal Globulin (S) [Mass/Vol] 3.2 g/dL Normal [facility] Comment on above: Performed By: #### C MP, MG ####[facility] Juzpaebexk112[address] [place], [place] [address]Dr. Donna Faisal Glucose [Mass/Vol] 162 mg/dL Critically high 74-106 [facility] Comment on above: Performed By: #### C MP, MG ####[facility] Fsnjvtaczu4187[address] [place], [place] [address]Dr. Donna Faisal Potassium [Moles/Vol] 3.3 mmol/L Critically low 3.5-5.1 [facility] Comment on above: Performed By: #### C MP, MG ####[facility] Dbqwxcovbk7202 [place] [address]Dr. Donna Faisal Protein [Mass/Vol] 6.4 g/dL Normal 6.4-8.2 [facility] Comment on above: Performed By: #### C MP, MG ####[facility] Joolfycvry3105[address] [place], [place] [address]Dr. Donna Faisal Sodium [Moles/Vol] 141 mmol/L Normal 136-145 [facility] Comment on above: Performed By: #### C MP, MG ####[facility] Ldmqvblbzb6627[address] [place], [place] [address]Dr. Donna Malone Urea nitrogen [Mass/Vol] 12.0 mg/dL Normal 7.0-18.0 [facility] Comment on above: Performed By: #### C MP, MG ####[facility] Lwbzwhdxsw64[address] [place], [place] [address]Dr. Donna Malone Urea nitrogen/Creatinine [Mass ratio] 14.5 mg/mg Normal [facility] Comment on above: Performed By: #### C MP, MG ####[facility] Oiplsqtpyk9592[address] [place], [place] [address]Dr. Donna Malone AMMONIAon 11-16-2022 Ammonia (P) [Mass/Vol] ug/dL Critically low 11-32 [facility] Comment on above: Performed By: #### A MM ####[facility] Vwmpfpydsz5764[address] [place], [place] [address]Dr. Donna Malone CBC AUTO DIFFon 11-16-2022 BASO # 0.0 103/ul Normal 0.0-0.1 [facility] Comment on above: Performed By: #### C BC ####[facility] Oamugcnekl2667[address] [place], [place] [address]Dr. Donna Malone Basophils/100 WBC (Bld) 0.2 % Normal 0.2-2.0 [facility] Comment on above: Performed By: #### C BC ####[facility] Zifeymbraw5053[address] [place], [place] [address]Dr. Donna Malone EO # 0.0 103/ul Normal 0.0-0.7 [facility] Comment on above: Performed By: #### C BC ####[facility] Pvrkivfeie7286[address] [place], [place] [address]Dr. Donna Malone Eosinophils/100 WBC (Bld) 0.0 % Critically low 0.9-7.0 [facility] Comment on above: Performed By: #### C BC ####[facility] Veqslubwcv4211[address] [place], [place] [address]Dr. Donna Malone Erythrocyte distribution width (RBC) [Ratio] 14.4 % Normal 11.0-15.0 [facility] Comment on above: Performed By: #### C BC ####[facility] Dlzkjsrppw3155 [place] [address]Dr. Donna Malone Hematocrit (Bld) [Volume fraction] 38.6 % Critically low 42.0-54.0 [facility] Comment on above: Performed By: #### C BC ####[facility] Apcpefrgme0836[address] [place], [place] [address]Dr. Donna Malone Hemoglobin (Bld) [Mass/Vol] 13.1 g/dL Critically low 14.0-18.0 [facility] Comment on above: Performed By: #### C BC ####[facility] Lontauyrrc8215[address] [place], [place] [address]Dr. Donna Malone IG # 0.05 10e3/ul Critically high 0.00-0.03 [facility] Comment on above: Performed By: #### C BC ####[facility] Xusgmraunn7557[address] [place], [place] [address]Dr. Donna Malone IG % 0.5 % Normal 0.0-0.5 [facility] Comment on above: Performed By: #### C BC ####[facility] Mipesqjqnh4621[address] [place], [place] [address]Dr. Donna Malone LYMPH # 1.0 103/ul Critically low 1.2-3.8 [facility] Comment on above: Performed By: #### C BC ####[facility] Ehnyckbane8[address] [place], [place] [address]Dr. Donna Malone Lymphocytes/100 WBC (Bld) 10.8 % Critically low 20.5-60.0 [facility] Comment on above: Performed By: #### C BC ####[facility] Vjswsyqghy7[address] [place], [place] [address]Dr. Donna Malone MANUAL DIFF REQ NO Normal [facility] Comment on above: Performed By: #### C BC ####[facility] Iolpdqozwo495[address] [place], [place] [address]Dr. Donna Malone MCH (RBC) [Entitic mass] 29.4 pg Normal 25.9-34.0 [facility] Comment on above: Performed By: #### C BC ####[facility] Qvzqibopiy7041 [place] [id number]. Donna Faisal MCHC (RBC) [Mass/Vol] 33.9 g/dL Normal 29.9-35.2 [facility] Comment on above: Performed By: #### C BC ####[facility] Invjegdakr0909 [place] [id number]. Donna Malone MCV (RBC) [Entitic vol] 86.7 fL Normal 80.0-94.0 [facility] Comment on above: Performed By: #### C BC ####[facility] Oifiqikghf[address]24[address] [place], [place] [address]Dr. Donna Malone MONO # 0.4 103/ul Normal 0.3-0.8 [facility] Comment on above: Performed By: #### C BC ####[facility] Brpuuecfna[address] [place], [place] [address]Dr. Donna Malone Monocytes/100 WBC (Bld) 4.4 % Normal 1.7-12.0 [facility] Comment on above: Performed By: #### C BC ####[facility] Gwnanfbnzm[address] [place], [place] [address]Dr. Donna Malone NEUT # 7.9 103/ul Critically high 1.4-6.5 [facility] Comment on above: Performed By: #### C BC ####[facility] Nsxhvcracb[address] [place], [place] [address]Dr. Donna Malone Neutrophils/100 WBC (Bld) 84.1 % Critically high 43.0-75.0 [facility] Comment on above: Performed By: #### C BC ####[facility] Sbsajsmjun85[address] [place], [place] [address]Dr. Donna Malone Platelet mean volume (Bld) [Entitic vol] 11.3 fL Normal 9.5-13.5 [facility] Comment on above: Performed By: #### C BC ####[facility] Zclagvlvqv[address] [place], [place] [address]Dr. Donna Malone PLT 201 103/ul Normal 150-450 [facility] Comment on above: Performed By: #### C BC ####[facility] Bbfxywvsnx3338 [place] [id number]. Donna Malone RBC 4.45 106/ul Critically low 4.70-6.10 [facility] Comment on above: Performed By: #### C BC ####[facility] Iozaztvbzw4614 [place] [id number]. Donna Malone WBC 9.3 103/ul Normal 4.0-11.0 [facility] Comment on above: Performed By: #### C BC ####[facility] [id number] [place] [address]Dr. Donna Malone GLYCOHEMOGLOBIN A1Con 2022 ADA RECOMMENDATION SEE BELOW Normal [facility] Comment on above: Result Comment: ADA RECOMMENDED LIMIT 4.0 - 6.0 ADA THERAPEUTIC TARGET < 7.0 ACTION SUGGESTED > 7.0 Performed By: #### A 1C ####[facility] Picqyqnzpz[address] [place], [place] [address]Dr. Donna Malone Glucose [Mass/Vol] 128 mg/dL Normal [facility] Comment on above: Performed By: #### A 1C ####[facility] Eougguibkv[address] [place], [place] [address]Dr. Donna Malone HbA1c (Bld) [Mass fraction] 6.1 % Normal 4.5-6.2 [facility] Comment on above: Performed By: #### A 1C ####[facility] Vsgblroexy[address] [place], [place] [address]Dr. Donna Malone MAGNESIUMon 11-16-2022 Magnesium [Mass/Vol] 1.8 mg/dL Normal 1.8-2.4 [facility] Comment on above: Performed By: #### C MP, MG ####[facility] Vutrohklmn[address] [place], [place] [address]Dr. Donna Malone POINT OF CARE GLUCOSEon 11-07 Glucose [Mass/Vol] 170 mg/dL Critically high 74-106 [facility] Comment on above: Performed By: #### P OCGLUC ####[facility] Qjenzcymjj[address] [place], [place] [address]Dr. Donna Malone Glucose [Mass/Vol] 158 mg/dL Critically high 74-106 [facility] Comment on above: Performed By: #### P OCGLUC ####[facility] [address]ukrmr[address] [place] [address]Dr. Donna Faisal Glucose [Mass/Vol] 176 mg/dL Critically high 74-106 [facility] Comment on above: Performed By: #### P OCGLUC ####[facility] Nvvvkxgqpr40[address] [place] [address]Dr. Donna Malone PROF 14(COMP METB)on 023 Albumin [Mass/Vol] 3.1 g/dL Critically low 3.4-5.0 [facility] Comment on above: Performed By: #### C MP, MG ####[facility] Rjwcabximz[address] [place] [address]Dr. Ruybyvan Faisal Albumin/Globulin [Mass ratio] 0.9 {ratio} Normal [facility] Comment on above: Performed By: #### C MP, MG ####[facility] Wtrrqzedqk[address] [place], [place] [address]Dr. Donna Malone ALP [Catalytic activity/Vol] 52 U/L Normal 46-116 [facility] Comment on above: Performed By: #### C MP, MG ####[facility] Mcoqeuxivj[address] [place], [place] [address]Dr. Donna Malone ALT [Catalytic activity/Vol] 13 U/L Critically low 16-63 [facility] Comment on above: Performed By: #### C MP, MG ####[facility] Vbculuwaui[address] [place] [address]Dr. Donna Malone Anion gap [Moles/Vol] 15.7 mmol/L Normal [facility] Comment on above: Performed By: #### C MP, MG ####[facility] Hywbhwddzv[address] [place], [place] [address]Dr. Donna Malone AST [Catalytic activity/Vol] 16 U/L Normal 15-37 [facility] Comment on above: Performed By: #### C MP, MG ####[facility] Qeyqqfpbrb[address] [place], [place] [address]Dr. Donna Malone Bilirubin [Mass/Vol] 0.5 mg/dL Normal 0.2-1.0 [facility] Comment on above: Performed By: #### C MP, MG ####[facility] Uhmbhhywiu59[address] [place], [place] [address]Dr. Donna Malone Calcium [Mass/Vol] 8.6 mg/dL Normal 8.5-10.1 [facility] Comment on above: Performed By: #### C MP, MG ####[facility] Flshzetcop2313[address] [place], [place] [address]Dr. Donna Malone Chloride [Moles/Vol] 109 mmol/L Critically high 98-107 [facility] Comment on above: Performed By: #### C MP, MG ####[facility] Idclntetmu9[address] [place], [place] [address]Dr. Donna Malone CO2 [Moles/Vol] 21.7 mmol/L Normal 21.0-32.0 [facility] Comment on above: Performed By: #### C MP, MG ####[facility] Wmqjzmlyzh8[address] [place], [place] [address]Dr. Donna Malone Creatinine [Mass/Vol] 0.99 mg/dL Normal 0.70-1.30 [facility] Comment on above: Performed By: #### C MP, MG ####[facility] Ubwemixmsb6[address] [place], [place] [address]Dr. Donna Malone EGFR-AF BURUNDIAN >60 Normal >=60 [facility] Comment on above: Performed By: #### C MP, MG ####[facility] Clsdtyeyev13[address] [place], [place] [address]Dr. Donna Malone EGFR-NON AF BURUNDIAN >60 Normal >=60 [facility] Comment on above: Performed By: #### C MP, MG ####[facility] Ioehdxcrko425[address] [place], [place] [address]Dr. Donna Malone Globulin (S) [Mass/Vol] 3.3 g/dL Normal [facility] Comment on above: Performed By: #### C MP, MG ####[facility] Xqksyirsmu[address] [place] [address]Dr. Donna Malone Glucose [Mass/Vol] 168 mg/dL Critically high 74-106 [facility] Comment on above: Performed By: #### C MP, MG ####[facility] Zianwpvspt57[address] [place], [place] [address]Dr. Donna Malone Potassium [Moles/Vol] 3.4 mmol/L Critically low 3.5-5.1 [facility] Comment on above: Performed By: #### C MP, MG ####[facility] Tyjsgvmdoi0868[address] [place], [place] [address]Dr. Donna Malone Protein [Mass/Vol] 6.4 g/dL Normal 6.4-8.2 [facility] Comment on above: Performed By: #### C MP, MG ####[facility] Pxujyxkgxd9968[address] [place], [place] [address]Dr. Donna Malone Sodium [Moles/Vol] 143 mmol/L Normal 136-145 [facility] Comment on above: Performed By: #### C MP, MG ####[facility] Tpgiyqwtsh74[address] [place], [place] [address]Dr. Donna Malone Urea nitrogen [Mass/Vol] 9.0 mg/dL Normal 7.0-18.0 [facility] Comment on above: Performed By: #### C MP, MG ####[facility] Ycrointspb5[address] [place], [place] [address]Dr. Donna Malone Urea nitrogen/Creatinine [Mass ratio] 9.1 mg/mg Normal [facility] Comment on above: Performed By: #### C MP, MG ####[facility] Cxlokgwfag07[address] [place], [place] [address]Dr. Donna Faisal XR CHEST 2 Von 11-16-2022 XR CHEST 2 V Normal [facility] AMMONIAon 11-15-2022 Ammonia (P) [Moles/Vol] 20 umol/L Normal 11-32 [facility] Comment on above: Performed By: #### A MM ####[facility] Vnizrnnmnl[address] [place], [place] [address]Dr. Donna Faisal CBC AUTO DIFFon 11-15-2022 BASO # 0.0 103/ul Normal 0.0-0.1 [facility] Comment on above: Performed By: #### C BC ####[facility] Tkw[address]esswhi[address] [place] [address]Dr. Donna Malone Basophils/100 WBC (Bld) 0.5 % Normal 0.2-2.0 [facility] Comment on above: Performed By: #### C BC ####[facility] Qsgomupnbw236[address] [place], [place] [address]Dr. Donna Faisal EO # 0.1 103/ul Normal 0.0-0.7 [facility] Comment on above: Performed By: #### C BC ####[facility] Bbgutumwbl8036[address] [place], [place] [address]Dr. Donna Faisal Eosinophils/100 WBC (Bld) 1.4 % Normal 0.9-7.0 [facility] Comment on above: Performed By: #### C BC ####[facility] Bjekztontn18[address] [place], [place] [address]Dr. Donna Faisal Erythrocyte distribution width (RBC) [Ratio] 14.6 % Normal 11.0-15.0 [facility] Comment on above: Performed By: #### C BC ####[facility] Ysmutgdwiy074[address] [place], [place] [address]Dr. Donna Malone Hematocrit (Bld) [Volume fraction] 36.8 % Critically low 42.0-54.0 [facility] Comment on above: Performed By: #### C BC ####[facility] Maytupkglo[address] [place], [place] [address]Dr. Donna Malone Hemoglobin (Bld) [Mass/Vol] 12.1 g/dL Critically low 14.0-18.0 [facility] Comment on above: Performed By: #### C BC ####[facility] Ymkveyukah[address] [place], [place] [address]Dr. Donna Malone IG # 0.01 10e3/ul Normal 0.00-0.03 [facility] Comment on above: Performed By: #### C BC ####[facility] Rlvxbystou[address] [place], [place] [address]Dr. Donna Malone IG % 0.2 % Normal 0.0-0.5 [facility] Comment on above: Performed By: #### C BC ####[facility] Tmzjjgtldj7[address] [place] [address]DrElizabeth Malone LYMPH # 1.7 103/ul Normal 1.2-3.8 [facility] Comment on above: Performed By: #### C BC ####[facility] H[address]hj[address] [place] [address]DrElizabeth Malone Lymphocytes/100 WBC (Bld) 27.0 % Normal 20.5-60.0 [facility] Comment on above: Performed By: #### C BC ####[facility] Zmyumvphmv[address] [place], [place] [address]DrElizabeth Malone MANUAL DIFF REQ NO Normal [facility] Comment on above: Performed By: #### C BC ####[facility] Rxydmxgzyb[address] [place], [place] [address]DrElizabeth Malone MCH (RBC) [Entitic mass] 29.5 pg Normal 25.9-34.0 [facility] Comment on above: Performed By: #### C BC ####[facility] Upcgsedugq23[address] [place], [place] [address]DrElizabeth Malone MCHC (RBC) [Mass/Vol] 32.9 g/dL Normal 29.9-35.2 [facility] Comment on above: Performed By: #### C BC ####[facility] Chgkftgnaf[address] [place], [place] [address]DrElizabeth Malone MCV (RBC) [Entitic vol] 89.8 fL Normal 80.0-94.0 [facility] Comment on above: Performed By: #### C BC ####[facility] Emronwyjut[address] [place], [place] [address]DrElizabeth Malone MONO # 0.4 103/ul Normal 0.3-0.8 [facility] Comment on above: Performed By: #### C BC ####[facility] Ervwiedmsg[address] [place], [place] [address]DrElizabeth Malone Monocytes/100 WBC (Bld) 6.7 % Normal 1.7-12.0 [facility] Comment on above: Performed By: #### C BC ####[facility] Mrfjrmxsxj16[address] [place] [address]Dr. Donna Malone NEUT # 4.0 103/ul Normal 1.4-6.5 [facility] Comment on above: Performed By: #### C BC ####[facility] Kmnneajren[address] [place] [address]Dr. Donna Malone Neutrophils/100 WBC (Bld) 64.2 % Normal 43.0-75.0 [facility] Comment on above: Performed By: #### C BC ####[facility] Yomnyembjx39[address] [place] [address]Dr. Donna Malone Platelet mean volume (Bld) [Entitic vol] 11.3 fL Normal 9.5-13.5 [facility] Comment on above: Performed By: #### C BC ####[facility] Xfkfpemytg[address] [place], [place] [address]Dr. Donna Malone PLT 169 103/ul Normal 150-450 [facility] Comment on above: Performed By: #### C BC ####[facility] Dgrqooffqs[address] [place], [place] [address]Dr. Donna Malone RBC 4.10 106/ul Critically low 4.70-6.10 [facility] Comment on above: Performed By: #### C BC ####[facility] Ddemworsnc[address] [place], [place] [address]Dr. Donna Malone WBC 6.3 103/ul Normal 4.0-11.0 [facility] Comment on above: Performed By: #### C BC ####[facility] Qdsifqdxnl[address] [place], [place] [address]Dr. Donna Malone GLYCOHEMOGLOBIN A1Con 2022 ADA RECOMMENDATION SEE BELOW Normal [facility] Comment on above: Result Comment: ADA RECOMMENDED LIMIT 4.0 - 6.0 ADA THERAPEUTIC TARGET < 7.0 ACTION SUGGESTED > 7.0 Performed By: #### A 1C ####[facility] Ipoqqponrp[address] [place] [address]Dr. Donna Malone Glucose [Mass/Vol] 128 mg/dL Normal [facility] Comment on above: Performed By: #### A 1C ####[facility] Wgsuoxazde[address] [place] [address]Dr. Donna Malone HbA1c (Bld) [Mass fraction] 6.1 % Normal 4.5-6.2 [facility] Comment on above: Performed By: #### A 1C ####[facility] Z[address]xkozlaff[address] [place] [address]Dr. Rubyyvan Malone MAGNESIUMon 11-15-2022 Magnesium [Mass/Vol] 1.6 mg/dL Critically low 1.8-2.4 [facility] Comment on above: Performed By: #### C MP, MG ####[facility] Ribhyazyfq[address] [place] [address]Dr. Rubyyvan Malone POINT OF CARE GLUCOSEon Glucose [Mass/Vol] 165 mg/dL Critically high 74-106 [facility] Comment on above: Performed By: #### P OCGLUC ####[facility] Kqvqeeqivs[address] [place] [address]Dr. Donna Malone Glucose [Mass/Vol] 155 mg/dL Critically high 74-106 [facility] Comment on above: Performed By: #### P OCGLUC ####[facility] Neptvdugfp[address] [place] [address]Dr. Donna Malone Glucose [Mass/Vol] 111 mg/dL Critically high 74-106 [facility] Comment on above: Performed By: #### P OCGLUC ####[facility] Qcbptczcoh[address]43 [place] [address]Dr. Donna Malone PROF 14(COMP METB)on 023 Albumin [Mass/Vol] 2.9 g/dL Critically low 3.4-5.0 [facility] Comment on above: Performed By: #### C MP, MG ####[facility] Pqjqrjzdql224[address] [place] [address]Dr. Rubyyvan Malone Albumin/Globulin [Mass ratio] 1.0 {ratio} Normal [facility] Comment on above: Performed By: #### C MP, MG ####[facility] K[address]yzgrycw[address] [place] [address]Dr. Donna Malone ALP [Catalytic activity/Vol] 38 U/L Critically low 46-116 [facility] Comment on above: Performed By: #### C MP, MG ####[facility] Joysjtzhlc7[address] [place] [address]Dr. Donna Malone ALT [Catalytic activity/Vol] 13 U/L Critically low 16-63 [facility] Comment on above: Performed By: #### C MP, MG ####[facility] Mtgrarneju[address] [place] [address]Dr. Donna Faisal Anion gap [Moles/Vol] 11.8 mmol/L Normal [facility] Comment on above: Performed By: #### C MP, MG ####[facility] Vbwklhrkdt64[address] [place] [address]Dr. Donna Faisal AST [Catalytic activity/Vol] 15 U/L Normal 15-37 [facility] Comment on above: Performed By: #### C MP, MG ####[facility] Szunjtcdga[address] [place] [address]Dr. Donna Faisal Bilirubin [Mass/Vol] 0.4 mg/dL Normal 0.2-1.0 [facility] Comment on above: Performed By: #### C MP, MG ####[facility] Taqfkuoplr6[address] [place] [address]Dr. Donna Faisal Calcium [Mass/Vol] 8.2 mg/dL Critically low 8.5-10.1 [facility] Comment on above: Performed By: #### C MP, MG ####[facility] Pdwwcyvspe8855 [place] [address]Dr. Donna Malone Chloride [Moles/Vol] 111 mmol/L Critically high 98-107 [facility] Comment on above: Performed By: #### C MP, MG ####[facility] Fkkwcykcts8[address] [place] [address]Dr. Donna Malone CO2 [Moles/Vol] 27.9 mmol/L Normal 21.0-32.0 [facility] Comment on above: Performed By: #### C MP, MG ####[facility] Uhpdgpuzqr5844 [place] [address]Dr. Donna Malone Creatinine [Mass/Vol] 0.99 mg/dL Normal 0.70-1.30 [facility] Comment on above: Performed By: #### C MP, MG ####[facility] Rkoyluqifu87[address] [place] [address]Dr. Donna Malone EGFR-AF BURUNDIAN >60 Normal >=60 [facility] Comment on above: Performed By: #### C MP, MG ####[facility] Sodwejgeeb[address] [place] [address]Dr. Donna Faisal EGFR-NON AF BURUNDIAN >60 Normal >=60 [facility] Comment on above: Performed By: #### C MP, MG ####[facility] Sqvxitixcg[address] [place], [place] [address]Dr. Donna Faisal Globulin (S) [Mass/Vol] 2.9 g/dL Normal [facility] Comment on above: Performed By: #### C MP, MG ####[facility] Gwyhmgpowe4[address] [place] [address]Dr. Donna Faisal Glucose [Mass/Vol] 88 mg/dL Normal 74-106 [facility] Comment on above: Performed By: #### C MP, MG ####[facility] Fvdqwmiaxv8657 [place] [address]Dr. Donna Faisal Potassium [Moles/Vol] 3.7 mmol/L Normal 3.5-5.1 [facility] Comment on above: Performed By: #### C MP, MG ####[facility] Hhbepdwbkk65[address] [place] [address]Dr. Donna Faisal Protein [Mass/Vol] 5.8 g/dL Critically low 6.4-8.2 [facility] Comment on above: Performed By: #### C MP, MG ####[facility] Savbaeqfmt5514 [place] [address]Dr. Donna Malone Sodium [Moles/Vol] 147 mmol/L Critically high 136-145 [facility] Comment on above: Performed By: #### C MP, MG ####[facility] Etlellxjez85[address] [place] [address]Dr. Donna Malone Urea nitrogen [Mass/Vol] 12.0 mg/dL Normal 7.0-18.0 [facility] Comment on above: Performed By: #### C MP, MG ####[facility] Fqjimywgms[address] [place], [place] [address]Dr. Donna Malone Urea nitrogen/Creatinine [Mass ratio] 12.1 mg/mg Normal [facility] Comment on above: Performed By: #### C MP, MG ####[facility] Odjcynaigm86[address] [place], [place] [address]Dr. Donna Malone ACETONE SERUMon 11-14-2022 ACETONE Negative Normal NEGATIVE [facility] Comment on above: Performed By: #### A CETON ####[facility] Mytjdnekge64[address] [place], [place] [address]Dr. Donna Malone AMMONIAon 11-14-2022 Ammonia (P) [Moles/Vol] 17 umol/L Normal 11-32 [facility] Comment on above: Performed By: #### A MM ####[facility] Wbheqnpikg[address] [place], [place] [address]Dr. Donna Malone BLOOD GASES BTYon 11-14-2022 02 MODE ROOM AIR Normal [facility] Comment on above: Performed By: #### A BG ####[facility] Euvluaowfr[address] [place], [place] [address]Dr. Donna Malone ALLENS TEST Positive Normal [facility] Comment on above: Performed By: #### A BG ####[facility] Oycmotblmi19[address] [place], [place] [address]Dr. Donna Malone Base excess Calc (Bld) [Moles/Vol] 1.1 mmol/L Normal -2.0-2.0 [facility] Comment on above: Performed By: #### A BG ####[facility] Juqaywjmhs40[address] [place], [place] [address]Dr. Donna Malone BIPAP PRESSURE Normal [facility] Comment on above: Performed By: #### A BG ####[facility] Fiegkokzos[address] [place] [address]Dr. Donna Malone CPAP [facility] Comment on above: Performed By: #### A BG ####[facility] Wbvoayjcmb8846 [place] [address]Dr. Donna Malone FIO2 [facility] Comment on above: Performed By: #### A BG ####[facility] Msloxgrrpc3[address] [place], [place] [address]Dr. Donna Malone HCO3 (Bld) [Moles/Vol] 26.0 mmol/L Normal 22.0-26.0 [facility] Comment on above: Performed By: #### A BG ####[facility] Boxqqiqrhk[address] [place], [place] [address]Dr. Donna Malone LPM [facility] Comment on above: Performed By: #### A BG ####[facility] Uzfxihrtnm[address] [place], [place] [address]Dr. Donna Malone MINUTE VOLUME [facility] Comment on above: Performed By: #### A BG ####[facility] Atnsufqkou7715[address] [place], [place] [address]Dr. Donna Malone Oxygen (Bld) [Partial pressure] 62.0 mm[Hg] Critically low 80.0-100.0 [facility] Comment on above: Performed By: #### A BG ####[facility] Zpovlbfkgh[address] [place], [place] [address]Dr. Donna Malone Oxygen saturation in Blood 91.9 % Critically low 95.0-100.0 [facility] Comment on above: Performed By: #### A BG ####[facility] Sbnusodgmi1235[address] [place], [place] [address]Dr. Donna Malone PCO2 42.8 mmHg Normal 35.0-45.0 [facility] Comment on above: Performed By: #### A BG ####[facility] Oyrlayjvfe[address] [place], [place] [address]Dr. Donna Malone PEEP [facility] Comment on above: Performed By: #### A BG ####[facility] Unmctxhugz[address] [place] [address]Dr. Donna Malone pH (Bld) 7.392 [pH] Normal 7.350-7.45 0 [facility] Comment on above: Performed By: #### A BG ####[facility] Uaxoyfcwjv12[address] [place] [address]Dr. Donna Malone PIP [facility] Comment on above: Performed By: #### A BG ####[facility] Engdgovevm[address] [place], [place] [address]Dr. Donna Malone PS [facility] Comment on above: Performed By: #### A BG ####[facility] Bjlkgsehrq[address] [place], [place] [address]Dr. Donna Malone PUNCTURE SITE LR [facility] Comment on above: Performed By: #### A BG ####[facility] Ubuyhxtozp[address] [place], [place] [address]Dr. Donna Malone RATE [facility] Comment on above: Performed By: #### A BG ####[facility] Moaozvsnmm[address] [place], [place] [address]Dr. Donna Malone VENT MODE [facility] Comment on above: Performed By: #### A BG ####[facility] Tqoofuvwiy[address] [place], [place] [address]Dr. Donna Malone VT [facility] Comment on above: Performed By: #### A BG ####[facility] Sfgkssikoz[address] [place], [place] [address]Dr. Donna Malone BNPon 11-14-2022 Natriuretic peptide B (Bld) [Mass/Vol] 148.0 pg/mL Normal <=900.0 [facility] Comment on above: Performed By: #### B TAR WORKER, CMP, HSTROPN ####[facility] Zlohlsltwg[address] [place], [place] [address]Dr. Donna Malone CBC AUTO DIFFon 11-14-2022 BASO # 0.0 103/ul Normal 0.0-0.1 [facility] Comment on above: Performed By: #### C BC ####[facility] Nbhlaaxzjv4[address] [place] [id number]. Donna Malone Basophils/100 WBC (Bld) 0.5 % Normal 0.2-2.0 [facility] Comment on above: Performed By: #### C BC ####[facility] [address] [place], [place] [address]Dr. Donna Malone EO # 0.1 103/ul Normal 0.0-0.7 [facility] Comment on above: Performed By: #### C BC ####[facility] Jeamartyls[address] [place], [place] [address]Dr. Donna Malone Eosinophils/100 WBC (Bld) 0.6 % Critically low 0.9-7.0 [facility] Comment on above: Performed By: #### C BC ####[facility] Dvlaokutfd[address] [place], [place] [address]Dr. Donna Malone Erythrocyte distribution width (RBC) [Ratio] 14.8 % Normal 11.0-15.0 [facility] Comment on above: Performed By: #### C BC ####[facility] Amwjyqwaxf[address] [place], [place] [address]Dr. Donna Malone Hematocrit (Bld) [Volume fraction] 41.9 % Critically low 42.0-54.0 [facility] Comment on above: Performed By: #### C BC ####[facility] [address]hdfgirzxq[address] [place], [place] [address]Dr. Donna Malone Hemoglobin (Bld) [Mass/Vol] 13.6 g/dL Critically low 14.0-18.0 [facility] Comment on above: Performed By: #### C BC ####[facility] Egyyaprzht[address] [place], [place] [address]Dr. Donna Malone IG # 0.01 10e3/ul Normal 0.00-0.03 [facility] Comment on above: Performed By: #### C BC ####[facility] Sexdpfutdf[address] [place], [place] [address]Dr. Donna Malone IG % 0.1 % Normal 0.0-0.5 [facility] Comment on above: Performed By: #### C BC ####[facility] Cqepuomvtm25[address] [place] [id number]. Donna Malone LYMPH # 1.7 103/ul Normal 1.2-3.8 [facility] Comment on above: Performed By: #### C BC ####[facility] Jbgiaurfjy9[address] [place] [id number]. Donna Faisal Lymphocytes/100 WBC (Bld) 21.2 % Normal 20.5-60.0 [facility] Comment on above: Performed By: #### C BC ####[facility] Mskqoxsctr67[address] [place] [address]Dr. Donna Malone MANUAL DIFF REQ NO Normal [facility] Comment on above: Performed By: #### C BC ####[facility] Mcfhynxbww[address] [place], [place] [address]Dr. Donna Faisal MCH (RBC) [Entitic mass] 29.2 pg Normal 25.9-34.0 [facility] Comment on above: Performed By: #### C BC ####[facility] Avlxbcgufi[address] [place], [place] [address]Dr. Donna Malone MCHC (RBC) [Mass/Vol] 32.5 g/dL Normal 29.9-35.2 [facility] Comment on above: Performed By: #### C BC ####[facility] Lcwtnqjzve[address] [place] [address]Dr. Donna Faisal MCV (RBC) [Entitic vol] 90.1 fL Normal 80.0-94.0 [facility] Comment on above: Performed By: #### C BC ####[facility] Nphappagms[address] [place], [place] [id number]. Donna Malone MONO # 0.4 103/ul Normal 0.3-0.8 [facility] Comment on above: Performed By: #### C BC ####[facility] Jknfpzojiz[address] [place], [place] [address]Dr. Donna Faisal Monocytes/100 WBC (Bld) 5.5 % Normal 1.7-12.0 [facility] Comment on above: Performed By: #### C BC ####[facility] S[address]kkhvdth[address] [place] [id number]. Donna Malone NEUT # 5.7 103/ul Normal 1.4-6.5 [facility] Comment on above: Performed By: #### C BC ####[facility] Rpsehieqgj2664 [place] [id number]. Donna Malone Neutrophils/100 WBC (Bld) 72.1 % Normal 43.0-75.0 [facility] Comment on above: Performed By: #### C BC ####[facility] Mdkoxhbqao7424 [place] [id number]. Donna Malone Platelet mean volume (Bld) [Entitic vol] 11.5 fL Normal 9.5-13.5 [facility] Comment on above: Performed By: #### C BC ####[facility] Yzxhrvantk3793 [place] [address]Dr. Donna Malone PLT 193 103/ul Normal 150-450 [facility] Comment on above: Performed By: #### C BC ####[facility] Sajrhbjdpm0073 [place] [id number]. Donna Malone RBC 4.65 106/ul Critically low 4.70-6.10 [facility] Comment on above: Performed By: #### C BC ####[facility] Blgpjhchlf2883 [place] [id number]. Donna Malone WBC 7.9 103/ul Normal 4.0-11.0 [facility] Comment on above: Performed By: #### C BC ####[facility] Pjpqy[address]ace[address] [place], [place] [address]Dr. Donna Malone CT HEAD WO CONon 11-14-2022 CT HEAD WO CON Normal [facility] CULTURE BLOODon 11-14-2022 Microscopic examination of blood, culture Culture Observations: NO GROWTH AT 5 DAYS. Normal [facility] Comment on above: Performed By: #### B LDCX2 ####[facility] Pbheqlspcj[address] [place], [place] [address]Dr. Donna Malone Microscopic examination of blood, culture Culture Observations: NO GROWTH AT 5 DAYS. Normal [facility] Comment on above: Performed By: #### B LDCX1 ####[facility] Hdhioepmzv20[address] [place] [id number]. Donna Faisal Covid-19 PCR ([facility])on SARS-CoV-2 (COVID-19) RNA JOSÉ MIGUEL+probe Ql (Unsp spec) Not detected Normal NOT DETECTED [facility] Comment on above: Result Comment: When diagnostic [...] for this test is supported by the [place] of Health and Human Service's declaration that [...] be used). Performed By: #### C VDTBH ####[facility] Hkjledunor224[address] [place] [id number]. Donna Malone DRUG SCREEN RAPID (URINE)on 11-14-2022 AMP Negative Normal NEGATIVE [facility] Comment on above: Performed By: #### D SHARONA ERUR ####[facility] Xdpflugkka3818 [place] [id number]. Donna Malone BAR Negative Normal NEGATIVE [facility] Comment on above: Performed By: #### D SHARONA ERUR ####[facility] Lfswdyzzwl6026 [place] [id number]. Donna Malone BUP Negative Normal NEGATIVE [facility] Comment on above: Performed By: #### D SHARONA ERUR ####[facility] Xbevoofyvf9220 [place] [id number]. Donna Malone BZO Negative Normal NEGATIVE [facility] Comment on above: Performed By: #### Calvin TABOR, ERUR ####[facility] Jndxugdywt[address] [place], [place] [address]Dr. Donna Malone EVONNE Negative Normal NEGATIVE [facility] Comment on above: Performed By: #### Calvin TABOR, ERUR ####[facility] Hhnwvxzwzg[address] [place], [place] [address]Dr. Donna Malone CUT-OFFS SEE BELOW Normal [facility] Comment on above: Result Comment: AMP (Amphetamine): 500ng/mL, BAR (Barbituates): 200 ng/mL, BZO (Benzodiazepines): 150 ng/mL, BUP (Buprenorphine): 10 ng/mL, EVONNE (Cocaine): 150 ng/mL, mAMP (Methamphetamine): 500 ng/mL, MTD (Methadone): 200 ng/mL, OPI (Opiates): 100 ng/mL, OXY (Oxycodone): 100 ng/mL, PCP (Phencyclidine): 25 ng/mL, PPX (Propoxyphene): 300 ng/mL, THC (Cannabinoids): 50 ng/mL, TCA (Trycyclic Antidepressants): 300 ng/mL Performed By: #### WESLY LAUR ####[facility] Xyvfurbjwf[address] [place], [place] [address]Dr. Donna Malone DRUG CUT HEADER DRUG CLASS TEST SYST EM CUT-OFF CONCENTRATIONS ARE FOLLOWS: Normal [facility] Comment on above: Performed By: #### Calvin TABOR ERUR ####[facility] Sujepudzct[address] [place], [place] [address]Dr. Donna Malone mAMP Negative Normal NEGATIVE [facility] Comment on above: Performed By: #### Calvin TABOR ERUR ####[facility] Tntxmzesoq[address] [place], [place] [address]Dr. Donna Malone MTD Negative Normal NEGATIVE [facility] Comment on above: Performed By: #### Calvin TABOR, ERUR ####[facility] Ysqohhgcvs64[address] [place], [place] [address]Dr. Donna Malone OPI Negative Normal NEGATIVE [facility] Comment on above: Performed By: #### D SHARONA, ERUR ####[facility] Ttqkixxwir[address] [place] [address]Dr. Donna Malone OXY Negative Normal NEGATIVE [facility] Comment on above: Performed By: #### Calvin TABOR, ERUR ####[facility] Ilmeefeigw6180 [place] [address]Dr. Donna Malone PCP Negative Normal NEGATIVE [facility] Comment on above: Performed By: #### Calvin TABOR, ERUR ####[facility] Fgdsnqtwvv79[address] [place] [address]Dr. Donna Malone PPX Negative Normal NEGATIVE [facility] Comment on above: Performed By: #### Calvin TABOR, ERUR ####[facility] Rmehevfmju8727 [place] [address]Dr. Donna Malone TCA Positive Abnormal NEGATIVE [facility] Comment on above: Performed By: #### Calvin TABOR, ERUR ####[facility] Oaxcdjbdbp[address] [place], [place] [address]Dr. Donna Malone THC Negative Normal NEGATIVE [facility] Comment on above: Performed By: #### Calvin TABOR, ERUR ####[facility] Ttmmhopukt[address] [place], [place] [address]Dr. Donna Malone ER URINE PROFILEon 3 Bilirubin Ql (U) MODERATE Abnormal NEGATIVE [facility] Comment on above: Performed By: #### Calvin TABOR, ERUR ####[facility] Nzoqwlvpjg3799 [place] [address]Dr. Donna Malone Clarity (U) CLEAR Normal CLEAR [facility] Comment on above: Performed By: #### Calvin TABOR, ERUR ####[facility] Wnyoonfgfk3737 [place] [address]Dr. Donna Malone Color (U) DK. YELLOW Normal YELLOW [facility] Comment on above: Performed By: #### Calvin TABOR, ERUR ####[facility] Kebdaxiwzc3268 [place] [address]Dr. Donna ARCE A micrscopic examina tion will be performed if indicated. Normal [facility] Comment on above: Performed By: #### Calvin TABOR, ERUR ####[facility] Xsqlzzakli[address] [place], [place] [address]Dr. Donna Malone Glucose Ql (U) Negative Normal NEGATIVE [facility] Comment on above: Performed By: #### Calvin TABOR, ERUR ####[facility] Qnvmdwkocr8[address] [place], [place] [address]Dr. Donna Faisal Hemoglobin Ql (U) Negative Normal NEGATIVE [facility] Comment on above: Performed By: #### Calvin TABOR, ERUR ####[facility] Ioskgdkefa[address] [place], [place] [address]Dr. Donna Malone Ketones Ql (U) 40 mg/dl Abnormal NEGATIVE [facility] Comment on above: Performed By: #### Calvin TABOR, ERUR ####[facility] Hxcwamyrwn[address] [place], [place] [address]Dr. Rubyyvan Malone LEUKOCYTES Negative Normal NEGATIVE [facility] Comment on above: Performed By: #### Calvin TABOR, ERUR ####[facility] Dykygaodfi[address] [place], [place] [address]Dr. Donna Malone Nitrite Ql (U) Negative Normal NEGATIVE [facility] Comment on above: Performed By: #### Calvin TABOR, ERUR ####[facility] Mdjqkorsxd[address] [place], [place] [address]Dr. Donna Malone pH (U) 6.0 [pH] Normal 5-9 [facility] Comment on above: Performed By: #### Calvin TABOR, ERUR ####[facility] Pghdlxvqcg[address] [place], [place] [address]Dr. Donna Malone SPEC GRAVITY 1.030 Abnormal 1.005-<=1. 025 [facility] Comment on above: Performed By: #### Calvin TABOR, ERUR ####[facility] Twcmdovcww[address] [place], [place] [address]Dr. Donna Malone UA PROTEIN TRACE Normal NEGATIVE/ TRACE [facility] Comment on above: Performed By: #### Calvin TABOR, ERUR ####[facility] Ffufmuziuz7[address] [place] [address]Dr. Donna Maolne UR MICRO IND NOT INDICATED Normal [facility] Comment on above: Performed By: #### D SHARONA, ERUR ####[facility] Giqncfkmpq4314 [place] [address]Dr. Donna Malone Urobilinogen Qn (U) 1.0 {Jermain'U}/dL Normal 0.2 - 1. 0 [facility] Comment on above: Performed By: #### D SHARONA, ERUR ####[facility] Ouvicbffcm26[address] [place] [address]Dr. Donna Malone LACTATE/LACTIC ACIDon 2022 Lactate [Moles/Vol] 1.6 mmol/L Normal 0.4-1.9 [facility] Comment on above: Performed By: #### L ACT ####[facility] Hgxbrprtdp0385 [place] [address]Dr. Donna Malone PROF 14(COMP METB)on 023 Albumin [Mass/Vol] 3.4 g/dL Normal 3.4-5.0 [facility] Comment on above: Performed By: #### B TAR WORKER, CMP, HSTROPN ####[facility] Cvcrxbsver4585 [place] [address]Dr. Donna Malone Albumin/Globulin [Mass ratio] 1.0 {ratio} Normal [facility] Comment on above: Performed By: #### B TAR WORKER, CMP, HSTROPN ####[facility] Lsimwcdprw8343 [place] [address]Dr. Donna Malone ALP [Catalytic activity/Vol] 48 U/L Normal 46-116 [facility] Comment on above: Performed By: #### B TAR WORKER, CMP, HSTROPN ####[facility] Eazjuathny7349 [place] [address]Dr. Donna Malone ALT [Catalytic activity/Vol] 13 U/L Critically low 16-63 [facility] Comment on above: Performed By: #### B TAR WORKER, CMP, HSTROPN ####[facility] Nqkcbopqgw6679 [place] [address]Dr. Donna Malone Anion gap [Moles/Vol] 13.2 mmol/L Normal [facility] Comment on above: Performed By: #### B TAR WORKER, CMP, HSTROPN ####[facility] Irxtrurxno50[address] [place] [address]Dr. Donna Malone AST [Catalytic activity/Vol] 13 U/L Critically low 15-37 [facility] Comment on above: Performed By: #### B TAR WORKER, CMP, HSTROPN ####[facility] Xwxiesnjyg8310 [place] [address]Dr. Donna Malone Bilirubin [Mass/Vol] 0.4 mg/dL Normal 0.2-1.0 [facility] Comment on above: Performed By: #### B TAR WORKER, CMP, HSTROPN ####[facility] Igkhvwvinc[address] [place], [place] [address]Dr. Donna Malone Calcium [Mass/Vol] 9.2 mg/dL Normal 8.5-10.1 [facility] Comment on above: Performed By: #### B TAR WORKER, CMP, HSTROPN ####[facility] Omtvorgnpp[address] [place], [place] [address]Dr. Donna Malone Chloride [Moles/Vol] 108 mmol/L Critically high 98-107 [facility] Comment on above: Performed By: #### B TAR WORKER, CMP, HSTROPN ####[facility] Nqhsozouca8470 [place] [address]Dr. Donna Malone CO2 [Moles/Vol] 27.0 mmol/L Normal 21.0-32.0 [facility] Comment on above: Performed By: #### B TAR WORKER, CMP, HSTROPN ####[facility] Aislootkzm[address] [place], [place] [address]Dr. Donna Malone Creatinine [Mass/Vol] 1.14 mg/dL Normal 0.70-1.30 [facility] Comment on above: Performed By: #### B TAR WORKER, CMP, HSTROPN ####[facility] Sonbcpveyf[address] [place], [place] [address]Dr. Donna Malone EGFR-AF BURUNDIAN >60 Normal >=60 [facility] Comment on above: Performed By: #### B TAR WORKER, CMP, HSTROPN ####[facility] Uiihpwcknh1166 [place] [address]Dr. Donna aMlone EGFR-NON AF BURUNDIAN >60 Normal >=60 [facility] Comment on above: Performed By: #### B TAR WORKER, CMP, HSTROPN ####[facility] Wlyexpevqu3539 [place] [address]Dr. Donna Malone Globulin (S) [Mass/Vol] 3.5 g/dL Normal [facility] Comment on above: Performed By: #### B TAR WORKER, CMP, HSTROPN ####[facility] Xbjupbmugk8019 [place] [address]Dr. Donna Malone Glucose [Mass/Vol] 126 mg/dL Critically high 74-106 [facility] Comment on above: Performed By: #### B TAR WORKER, CMP, HSTROPN ####[facility] Knvvpktinu8748 [place] [address]Dr. Donna Malone Potassium [Moles/Vol] 4.2 mmol/L Normal 3.5-5.1 [facility] Comment on above: Performed By: #### B TAR WORKER, CMP, HSTROPN ####[facility] Obcqjnsjsc7[address] [place] [address]Dr. Donna Malone Protein [Mass/Vol] 6.9 g/dL Normal 6.4-8.2 [facility] Comment on above: Performed By: #### B TAR WORKER, CMP, HSTROPN ####[facility] Zkfrtdfbdq9294 [place] [address]Dr. Donna Malone Sodium [Moles/Vol] 144 mmol/L Normal 136-145 [facility] Comment on above: Performed By: #### B TAR WORKER, CMP, HSTROPN ####[facility] Eqswvjtfoh1636 [place] [address]Dr. Donna Malone Urea nitrogen [Mass/Vol] 17.0 mg/dL Normal 7.0-18.0 [facility] Comment on above: Performed By: #### B TAR WORKER, CMP, HSTROPN ####[facility] Yxoevxbjoe3285 [place], [place] [address]Hw. Donna Malone Urea nitrogen/Creatinine [Mass ratio] 14.9 mg/mg Normal [facility] Comment on above: Performed By: #### B TAR WORKER, CMP, HSTROPN ####[facility] Lazoepmqum4638 [place], [place] [address]Up. Donna Malone TROPONIN, HIGH SENSITIVITYon 11-14-2022 HSTROP 11.2 pg/mL Normal 4.0-76.1 [facility] Comment on above: Result Comment: CUT- OFF POINTS HAVE BEEN ESTABLISHED BASED ON THE FOURTH UNIVERSAL DEFINITIONS OF MYOCARDIALINFARCTION. THE UPPER REFERENCE LIMIT (URL) OF TROPONIN, DEFINED THE 99TH PERCENTILE OFcTnI DISTRIBUTION IN A REFERENCE POPULATION, HAS BEEN CONFIRMED THE DECISION THRESHOLDFOR GA DIAGNOSIS. Performed By: #### B TAR WORKER, CMP, HSTROPN ####[facility] Dmaeyxmghk6377 [place], [place] [address]Op. Donna Malone XR CHEST 1 Von 11-14-2022 XR CHEST 1 V Normal [facility] XR lumbar spine AP/LAT/FLX/E XTon 11-01-2022 XR lumbar spine AP/LAT/FLX/[facility] [address] XRay Report Signed Patient: Taylor Mcclellan SR MR#: [id number] : 1955 Acct:[id number] Age/Sex: 67 / M ADM Date: 11/01/22 Loc: XD Room: Type: [facility] Attending Dr: Benson Lane MD Copies to: [...] Mj Rodriguez M.D.11/01/2022 3:07 PM Dictation Location: [place] [address] Transcribed By: [facility] 11/01/22 1507 Dictated By: Mj Rodriguez II, MD 11/01/22 1505 Signed By: 11/01/22 1507 Normal [facility] ER URINE PROFILEon 3 Bilirubin Ql (U) Negative Normal NEGATIVE [facility] Comment on above: Performed By: #### E RUR ####[facility] Vzixgbsfxm[address] [place], [place] [address]Dr. Donna Malone Clarity (U) CLEAR Normal CLEAR [facility] Comment on above: Performed By: #### E RUR ####[facility] Ggmmtnxcaz4450 [place] [address]Dr. Donna Malone Color (U) YELLOW Normal YELLOW [facility] Comment on above: Performed By: #### E RUR ####[facility] Ltxgnncxyo2095 [place] [address]Dr. Donna Malone ERUAHD A micrscopic examina tion will be performed if indicated. Normal [facility] Comment on above: Performed By: #### E RUR ####[facility] Ayypynrthj8838 [place] [address]Dr. Donna Malone Glucose Ql (U) 250 mg/dl Abnormal NEGATIVE [facility] Comment on above: Performed By: #### E RUR ####[facility] Zhlbxfeovc[address] [place], [place] [address]Dr. Donna Malone Hemoglobin Ql (U) TRACE-INTACT Abnormal NEGATIVE [facility] Comment on above: Performed By: #### E RUR ####[facility] Cgbhxhwabz[address] [place], [place] [address]Dr. Rubyyvan Malone Ketones Ql (U) Negative Normal NEGATIVE [facility] Comment on above: Performed By: #### E RUR ####[facility] Plnpgzagsq[address] [place], [place] [address]Dr. Rubyyvan Faisal LEUKOCYTES Negative Normal NEGATIVE [facility] Comment on above: Performed By: #### E RUR ####[facility] Ieliovbdpj96[address] [place], [place] [address]Dr. Donna Malone Nitrite Ql (U) Negative Normal NEGATIVE [facility] Comment on above: Performed By: #### E RUR ####[facility] Rsydcdvuzn[address] [place], [place] [address]Dr. Donna Malone pH (U) 5.5 [pH] Normal 5-9 [facility] Comment on above: Performed By: #### E RUR ####[facility] Giqcijbspr[address] [place], [place] [address]Dr. Donna Malone SPEC GRAVITY 1.025 Normal 1.005-<=1. 025 [facility] Comment on above: Performed By: #### E RUR ####[facility] Cspminjkdb[address] [place], [place] [address]Dr. Donna Malone UA PROTEIN Negative Normal NEGATIVE/ TRACE [facility] Comment on above: Performed By: #### E RUR ####[facility] Hcbbdxfzvf50[address] [place], [place] [address]Dr. Donna Malone UR MICRO IND NOT INDICATED Normal [facility] Comment on above: Performed By: #### E RUR ####[facility] Zuhiyllbfs[address] [place], [place] [address]Dr. Donna Malone Urobilinogen Qn (U) 0.2 {Jermain'U}/dL Normal 0.2 - 1. 0 [facility] Comment on above: Performed By: #### E RUR ####[facility] Nlbmztztja3967 [place] [address]Dr. Donna Malone CBC AUTO DIFFon 10-26-2022 BASO # 0.0 103/ul Normal 0.0-0.1 [facility] Comment on above: Performed By: #### C BC ####[facility] Uiqbvatdrc2327 [place] [address]Dr. Rubyyvan Malone Basophils/100 WBC (Bld) 0.4 % Normal 0.2-2.0 [facility] Comment on above: Performed By: #### C BC ####[facility] Ufgfgrpeso4[address] [place], [place] [address]Dr. Rubyyvan Malone EO # 0.0 103/ul Normal 0.0-0.7 [facility] Comment on above: Performed By: #### C BC ####[facility] Pwcyjzhfsn8[address] [place], [place] [address]Dr. Rubyyvan Malone Eosinophils/100 WBC (Bld) 0.0 % Critically low 0.9-7.0 [facility] Comment on above: Performed By: #### C BC ####[facility] Xwejwtykyt[address] [place], [place] [address]Dr. Donna Malone Erythrocyte distribution width (RBC) [Ratio] 14.5 % Normal 11.0-15.0 [facility] Comment on above: Performed By: #### C BC ####[facility] Wctjmzoetu6[address] [place], [place] [address]Dr. Rubyyvan Malone Hematocrit (Bld) [Volume fraction] 41.2 % Critically low 42.0-54.0 [facility] Comment on above: Performed By: #### C BC ####[facility] Okvfzoornq15[address] [place], [place] [address]Dr. Rubyyvan Malone Hemoglobin (Bld) [Mass/Vol] 13.7 g/dL Critically low 14.0-18.0 [facility] Comment on above: Performed By: #### C BC ####[facility] Yqitrvyhoy[address] [place], [place] [address]Dr. Donna Malone IG # 0.02 10e3/ul Normal 0.00-0.03 [facility] Comment on above: Performed By: #### C BC ####[facility] Arxwqpauow3816 [place] [address]DrElizabeth Donna Malone IG % 0.2 % Normal 0.0-0.5 [facility] Comment on above: Performed By: #### C BC ####[facility] Qzhamfdwpv[address] [place], [place] [address]DrElizabeth Donna Malone LYMPH # 1.2 103/ul Normal 1.2-3.8 [facility] Comment on above: Performed By: #### C BC ####[facility] Qugrqtzard[address] [place], [place] [address]DrElizabeth Donna Malone Lymphocytes/100 WBC (Bld) 14.4 % Critically low 20.5-60.0 [facility] Comment on above: Performed By: #### C BC ####[facility] Vitjpnkzjq7[address] [place], [place] [address]DrElizabeth Donna Malone MANUAL DIFF REQ NO Normal [facility] Comment on above: Performed By: #### C BC ####[facility] Rhgquisnpo9864[address] [place], [place] [address]DrElizabeth Donna Malone MCH (RBC) [Entitic mass] 29.4 pg Normal 25.9-34.0 [facility] Comment on above: Performed By: #### C BC ####[facility] Kkaxmojuvl[address] [place], [place] [address]DrElizabeth Donna Malone MCHC (RBC) [Mass/Vol] 33.3 g/dL Normal 29.9-35.2 [facility] Comment on above: Performed By: #### C BC ####[facility] Ymohwpqxzb[address] [place], [place] [address]DrElizabeth Donna Malone MCV (RBC) [Entitic vol] 88.4 fL Normal 80.0-94.0 [facility] Comment on above: Performed By: #### C BC ####[facility] Topjbwmpmn[address] [place], [place] [address]DrElizabeth Donna Faisal MONO # 0.2 103/ul Critically low 0.3-0.8 [facility] Comment on above: Performed By: #### C BC ####[facility] Uinineicza9838 [place] [address]Dr. Donna Malone Monocytes/100 WBC (Bld) 2.5 % Normal 1.7-12.0 [facility] Comment on above: Performed By: #### C BC ####[facility] Jjegwfpybt6846 [place] [id number]. Donna Malone NEUT # 6.9 103/ul Critically high 1.4-6.5 [facility] Comment on above: Performed By: #### C BC ####[facility] Szwsisuwon3539 [place] [address]Dr. Donna Malone Neutrophils/100 WBC (Bld) 82.5 % Critically high 43.0-75.0 [facility] Comment on above: Performed By: #### C BC ####[facility] Ugepyxoryh5144 [place] [address]Dr. Donna Malone Platelet mean volume (Bld) [Entitic vol] 11.3 fL Normal 9.5-13.5 [facility] Comment on above: Performed By: #### C BC ####[facility] Axmnumbizi[address] [place], [place] [address]Dr. Donna Malone PLT 241 103/ul Normal 150-450 [facility] Comment on above: Performed By: #### C BC ####[facility] Pnimzrjmfd2962 [place] [address]Dr. Donna Malone RBC 4.66 106/ul Critically low 4.70-6.10 [facility] Comment on above: Performed By: #### C BC ####[facility] [address] [place] [id number]. Donna Malone WBC 8.4 103/ul Normal 4.0-11.0 [facility] Comment on above: Performed By: #### C BC ####[facility] Lotnytznim[address] [place] [address]Dr. Donna Malone CRPon 10-26-2022 CRP [Mass/Vol] mg/L Normal <=1.0 [facility] Comment on above: Performed By: #### C RP, BMP ####[facility] Ccpqmglxdd[address] [place] [address]Dr. Donna Malone CT LSPINE WO CONon 3 CT LSPINE WO CON Normal [facility] PROF CHEM 8 (BAS METB)on Anion gap [Moles/Vol] 11.9 mmol/L Normal [facility] Comment on above: Performed By: #### C RP, BMP ####[facility] Ibytpcmfuq[address] [place] [address]Dr. Donna Malone Calcium [Mass/Vol] 9.1 mg/dL Normal 8.5-10.1 [facility] Comment on above: Performed By: #### C RP, BMP ####[facility] Ubculqskxd[address] [place] [address]Dr. Donna Malone Chloride [Moles/Vol] 104 mmol/L Normal 98-107 [facility] Comment on above: Performed By: #### C RP, BMP ####[facility] Xjqlxigzhj99[address] [place] [address]Dr. Donna Malone CO2 [Moles/Vol] 26.3 mmol/L Normal 21.0-32.0 [facility] Comment on above: Performed By: #### C RP, BMP ####[facility] Ulxvgtztis7[address] [place] [address]Dr. Rubyyvan Malone Creatinine [Mass/Vol] 0.99 mg/dL Normal 0.70-1.30 [facility] Comment on above: Performed By: #### C RP, BMP ####[facility] Htdhuztufo6[address] [place] [id number]. Rubyyvan Faisal EGFR-AF BURUNDIAN >60 Normal >=60 [facility] Comment on above: Performed By: #### C RP, BMP ####[facility] Visjevdzcc[address] [place] [address]Dr. Donna Malone EGFR-NON AF BURUNDIAN >60 Normal >=60 [facility] Comment on above: Performed By: #### C RP, BMP ####[facility] Hbtyfldhgr2799 [place] [id number]. Donna Malone Glucose [Mass/Vol] 152 mg/dL Critically high 74-106 [facility] Comment on above: Performed By: #### C RP, BMP ####[facility] Bunxlguexw[address] [place], [place] [address]Dr. Donna Malone Potassium [Moles/Vol] 4.2 mmol/L Normal 3.5-5.1 [facility] Comment on above: Performed By: #### C RP, BMP ####[facility] Adcsubxbuz[address] [place], [place] [address]Dr. Donna Malone Sodium [Moles/Vol] 138 mmol/L Normal 136-145 [facility] Comment on above: Performed By: #### C RP, BMP ####[facility] Fnpxzwlaxk[address] [place], [place] [address]Dr. Donna Fiasal Urea nitrogen [Mass/Vol] 12.0 mg/dL Normal 7.0-18.0 [facility] Comment on above: Performed By: #### C RP, BMP ####[facility] Mtlmvfamae[address] [place], [place] [address]Dr. Donna Malone Urea nitrogen/Creatinine [Mass ratio] 12.1 mg/mg Normal [facility] Comment on above: Performed By: #### C RP, BMP ####[facility] Pnnwcenazg[address] [place], [place] [address]Dr. Donna Faisal SED RATE WESTERGRENon 2022 SED RATE 57 mm/hr Critically high <=20 [facility] Comment on above: Performed By: #### S EDR ####[facility] Suvamdcdwv8[address] [place], [place] [address]Dr. Donna Malone CBC AUTO DIFFon 10-25-2022 BASO # 0.0 103/ul Normal 0.0-0.1 [facility] Comment on above: Performed By: #### C BC ####[facility] Zujjbgfwxx05[address] [place], [place] [address]Dr. Donna Malone Basophils/100 WBC (Bld) 0.4 % Normal 0.2-2.0 [facility] Comment on above: Performed By: #### C BC ####[facility] Pwyqwdyyry58[address] [place] [address]Dr. Donna Malone EO # 0.0 103/ul Normal 0.0-0.7 [facility] Comment on above: Performed By: #### C BC ####[facility] Gawjzmyfwb[address] [place], [place] [address]Dr. Donna Malone Eosinophils/100 WBC (Bld) 0.0 % Critically low 0.9-7.0 [facility] Comment on above: Performed By: #### C BC ####[facility] Oqvaboksrx7[address] [place], [place] [address]Dr. Donna Malone Erythrocyte distribution width (RBC) [Ratio] 14.5 % Normal 11.0-15.0 [facility] Comment on above: Performed By: #### C BC ####[facility] Roevrootuz45[address] [place], [place] [address]Dr. Donna Malone Hematocrit (Bld) [Volume fraction] 43.8 % Normal 42.0-54.0 [facility] Comment on above: Performed By: #### C BC ####[facility] Nsfpevsabs[address] [place], [place] [address]Dr. Donna Malone Hemoglobin (Bld) [Mass/Vol] 14.2 g/dL Normal 14.0-18.0 [facility] Comment on above: Performed By: #### C BC ####[facility] Fbatntvsbg17[address] [place], [place] [address]Dr. Donna Malone IG # 0.01 10e3/ul Normal 0.00-0.03 [facility] Comment on above: Performed By: #### C BC ####[facility] Qouxkscuuu49[address] [place], [place] [address]Dr. Rubyyvan Malone IG % 0.1 % Normal 0.0-0.5 [facility] Comment on above: Performed By: #### C BC ####[facility] Hgfgqnzjxh64[address] [place], [place] [address]DrElizabeth Malone LYMPH # 1.4 103/ul Normal 1.2-3.8 [facility] Comment on above: Performed By: #### C BC ####[facility] Ahrmbniewl12[address] [place] [id number]. Donna Malone Lymphocytes/100 WBC (Bld) 17.1 % Critically low 20.5-60.0 [facility] Comment on above: Performed By: #### C BC ####[facility] Yabamncjcz[address] [place] [address]Dr. Donna Malone MANUAL DIFF REQ NO Normal [facility] Comment on above: Performed By: #### C BC ####[facility] Dgnqeemgpy5[address] [place] [id number]. Donna Malone MCH (RBC) [Entitic mass] 29.1 pg Normal 25.9-34.0 [facility] Comment on above: Performed By: #### C BC ####[facility] Hswnrnpdgf[address] [place], [place] [address]Dr. Donna Malone MCHC (RBC) [Mass/Vol] 32.4 g/dL Normal 29.9-35.2 [facility] Comment on above: Performed By: #### C BC ####[facility] Oxdzszuikq3564[address] [place], [place] [address]Dr. Donna Malone MCV (RBC) [Entitic vol] 89.8 fL Normal 80.0-94.0 [facility] Comment on above: Performed By: #### C BC ####[facility] Jvxltusxxw0879[address] [place], [place] [address]Dr. Donna Malone MONO # 0.3 103/ul Normal 0.3-0.8 [facility] Comment on above: Performed By: #### C BC ####[facility] Zuwbqgfnao[address] [place], [place] [address]Dr. Donna Malone Monocytes/100 WBC (Bld) 4.1 % Normal 1.7-12.0 [facility] Comment on above: Performed By: #### C BC ####[facility] Jzqppvoglb00[address] [place], [place] [address]DrElizabeth Malone NEUT # 6.3 103/ul Normal 1.4-6.5 [facility] Comment on above: Performed By: #### C BC ####[facility] Zzhlsagbkn9[address] [place] [address]Dr. Donna Malone Neutrophils/100 WBC (Bld) 78.3 % Critically high 43.0-75.0 [facility] Comment on above: Performed By: #### C BC ####[facility] Hjeoqavzyt22[address] [place] [address]Dr. Donna Malone Platelet mean volume (Bld) [Entitic vol] 11.3 fL Normal 9.5-13.5 [facility] Comment on above: Performed By: #### C BC ####[facility] Ehzgugbsdx[address] [place], [place] [address]Dr. Donna Faisal PLT 271 103/ul Normal 150-450 [facility] Comment on above: Performed By: #### C BC ####[facility] Fpqtogbrcn8[address] [place], [place] [address]Dr. Donna Faisal RBC 4.88 106/ul Normal 4.70-6.10 [facility] Comment on above: Performed By: #### C BC ####[facility] Drtgyaqvai[address] [place], [place] [address]Dr. Donna Malone WBC 8.0 103/ul Normal 4.0-11.0 [facility] Comment on above: Performed By: #### C BC ####[facility] Rkpmnmgwks[address] [place], [place] [address]Dr. Donna Faisal ER URINE PROFILEon 3 Bilirubin Ql (U) Negative Normal NEGATIVE [facility] Comment on above: Performed By: #### E RUR ####[facility] Tsbtgqfldq0027[address] [place], [place] [address]Dr. Donna Malone Clarity (U) CLEAR Normal CLEAR [facility] Comment on above: Performed By: #### E RUR ####[facility] Xhkxvvqalw29[address] [place] [address]Dr. Donna Malone Color (U) YELLOW Normal YELLOW [facility] Comment on above: Performed By: #### E RUR ####[facility] Yyxhgfwfbd14[address] [place] [address]Dr. Donna Malone ERUAHD A micrscopic examina tion will be performed if indicated. Normal [facility] Comment on above: Performed By: #### E RUR ####[facility] Owlotlmvsb2099[address] [place], [place] [address]Dr. Donna Malone Glucose Ql (U) 100 mg/dl Abnormal NEGATIVE [facility] Comment on above: Performed By: #### E RUR ####[facility] Rdgvpafavv3902[address] [place], [place] [address]Dr. Donna Malone Hemoglobin Ql (U) Negative Normal NEGATIVE [facility] Comment on above: Performed By: #### E RUR ####[facility] Tuhxolkxht38[address] [place], [place] [address]Dr. Donna Faisal Ketones Ql (U) TRACE Abnormal NEGATIVE [facility] Comment on above: Performed By: #### E RUR ####[facility] Htldmsmera27[address] [place], [place] [address]Dr. Donna Malone LEUKOCYTES Negative Normal NEGATIVE [facility] Comment on above: Performed By: #### E RUR ####[facility] Fltkijtduc37[address] [place], [place] [address]Dr. Donna Faisal Nitrite Ql (U) Negative Normal NEGATIVE [facility] Comment on above: Performed By: #### E RUR ####[facility] Gznqlhtevi064[address] [place], [place] [address]Dr. Rubyyvan Faisal pH (U) 6.0 [pH] Normal 5-9 [facility] Comment on above: Performed By: #### E RUR ####[facility] Gbmvqkajsx11[address] [place], [place] [address]Dr. Donna Malone SPEC GRAVITY >=1.030 Abnormal 1.005-<=1. 025 [facility] Comment on above: Performed By: #### E RUR ####[facility] Wyavjjujni[address] [place], [place] [address]Dr. Donna Malone UA PROTEIN Negative Normal NEGATIVE/ TRACE [facility] Comment on above: Performed By: #### E RUR ####[facility] Mjbxguymgy7[address] [place] [address]Dr. Donna Malone UR MICRO IND NOT INDICATED Normal [facility] Comment on above: Performed By: #### E RUR ####[facility] Gllejyhkub0934[address] [place], [place] [address]Dr. Donna Maloen Urobilinogen Qn (U) 0.2 {Jermain'U}/dL Normal 0.2 - 1. 0 [facility] Comment on above: Performed By: #### E RUR ####[facility] Zljibyulkk[address] [place], [place] [address]Dr. Donna Malone PROF CHEM 8 (BAS METB)on Anion gap [Moles/Vol] 16.4 mmol/L Normal [facility] Comment on above: Performed By: #### B MP ####[facility] Jrcdcrcpkp7625[address] [place], [place] [address]Dr. Donna Malone Calcium [Mass/Vol] 9.4 mg/dL Normal 8.5-10.1 [facility] Comment on above: Performed By: #### B MP ####[facility] Pxoojnukca[address] [place], [place] [address]Dr. Donna Malone Chloride [Moles/Vol] 103 mmol/L Normal 98-107 [facility] Comment on above: Performed By: #### B MP ####[facility] Cgqbjwzoyd39[address] [place], [place] [address]Dr. Donna Malone CO2 [Moles/Vol] 23.7 mmol/L Normal 21.0-32.0 [facility] Comment on above: Performed By: #### B MP ####[facility] Reblbfnehe[address] [place], [place] [address]Dr. Donna Malone Creatinine [Mass/Vol] 1.12 mg/dL Normal 0.70-1.30 [facility] Comment on above: Performed By: #### B MP ####[facility] Dbpzgfspib68[address] [place], [place] [address]Dr. Donna Malone EGFR-AF BURUNDIAN >60 Normal >=60 [facility] Comment on above: Performed By: #### B MP ####[facility] Wuqnfxvtxv63[address] [place] [address]Dr. Donna Malone EGFR-NON AF BURUNDIAN >60 Normal >=60 [facility] Comment on above: Performed By: #### B MP ####[facility] Bdnzwbrkdg14[address] [place] [address]Dr. Donna Malone Glucose [Mass/Vol] 170 mg/dL Critically high 74-106 [facility] Comment on above: Performed By: #### B MP ####[facility] Ewsdwrdiww5835 [place] [address]Dr. Donna Malone Potassium [Moles/Vol] 4.1 mmol/L Normal 3.5-5.1 [facility] Comment on above: Performed By: #### B MP ####[facility] Fnsfqdqyjk[address] [place], [place] [address]Dr. Donna Malone Sodium [Moles/Vol] 139 mmol/L Normal 136-145 [facility] Comment on above: Performed By: #### B MP ####[facility] Ptysmmdigz[address] [place], [place] [address]Dr. Donna Malone Urea nitrogen [Mass/Vol] 9.0 mg/dL Normal 7.0-18.0 [facility] Comment on above: Performed By: #### B MP ####[facility] Oeoobxbdsm[address] [place], [place] [address]Dr. Donna Malone Urea nitrogen/Creatinine [Mass ratio] 8.0 mg/mg Normal [facility] Comment on above: Performed By: #### B MP ####[facility] Xuyrvbouxs[address] [place], [place] [address]Dr. Donna Malone ACETONE SERUMon 08-10-2022 ACETONE Negative Normal NEGATIVE [facility] Comment on above: Performed By: #### A CETON ####[facility] Gfsyvgnglk8[address] [place], [place] [address]Dr. Donna Malone CBC AUTO DIFFon 08-10-2022 BASO # 0.1 103/ul Normal 0.0-0.1 [facility] Comment on above: Performed By: #### C BC ####[facility] Kshlxhxkkr[address] [place], [place] [address]Dr. Donna Malone Basophils/100 WBC (Bld) 0.7 % Normal 0.2-2.0 [facility] Comment on above: Performed By: #### C BC ####[facility] Oszjusvunr5[address] [place] [address]Dr. Donna Malone EO # 0.2 103/ul Normal 0.0-0.7 [facility] Comment on above: Performed By: #### C BC ####[facility] Hwjfuvuxni55[address] [place] [address]Dr. Donna Malone Eosinophils/100 WBC (Bld) 2.0 % Normal 0.9-7.0 [facility] Comment on above: Performed By: #### C BC ####[facility] Qekpxbsoxj1652 [place] [address]Dr. Donna Malone Erythrocyte distribution width (RBC) [Ratio] 14.3 % Normal 11.0-15.0 [facility] Comment on above: Performed By: #### C BC ####[facility] Hvnowycxtp5[address] [place] [address]Dr. Donna Malone Hematocrit (Bld) [Volume fraction] 37.3 % Critically low 42.0-54.0 [facility] Comment on above: Performed By: #### C BC ####[facility] Aqtumnjwxh1729 [place] [address]Dr. Donna Malone Hemoglobin (Bld) [Mass/Vol] 12.1 g/dL Critically low 14.0-18.0 [facility] Comment on above: Performed By: #### C BC ####[facility] Zxdipcnnmt84[address] [place] [address]Dr. Donna Malone IG # 0.03 10e3/ul Normal 0.00-0.03 [facility] Comment on above: Performed By: #### C BC ####[facility] Gnhwoxughm20[address] [place] [address]Dr. Donna Malone IG % 0.4 % Normal 0.0-0.5 [facility] Comment on above: Performed By: #### C BC ####[facility] Onyliuospl8[address] [place] [id number]. Donna Faisal LYMPH # 1.3 103/ul Normal 1.2-3.8 [facility] Comment on above: Performed By: #### C BC ####[facility] Cmsbmjfrbu3685 [place] [address]Dr. Donna Faisal Lymphocytes/100 WBC (Bld) 18.3 % Critically low 20.5-60.0 [facility] Comment on above: Performed By: #### C BC ####[facility] Zpdvkawmwu6[address] [place] [address]Dr. Rubyyvan Malone MANUAL DIFF REQ NO Normal [facility] Comment on above: Performed By: #### C BC ####[facility] Xnnloxyzve24[address] [place] [address]Dr. Donna Faisal MCH (RBC) [Entitic mass] 30.1 pg Normal 25.9-34.0 [facility] Comment on above: Performed By: #### C BC ####[facility] Fkuvvrmgch40[address] [place] [address]Dr. Donna Faisal MCHC (RBC) [Mass/Vol] 32.4 g/dL Normal 29.9-35.2 [facility] Comment on above: Performed By: #### C BC ####[facility] Hdaatxqhgz475[address] [place] [address]Dr. Rubyyvan Malone MCV (RBC) [Entitic vol] 92.8 fL Normal 80.0-94.0 [facility] Comment on above: Performed By: #### C BC ####[facility] Hcdvfbpdly80[address] [place] [address]Dr. Donna Faisal MONO # 0.6 103/ul Normal 0.3-0.8 [facility] Comment on above: Performed By: #### C BC ####[facility] Iucybrinqh7878 [place] [address]Dr. Rubyyvan Malone Monocytes/100 WBC (Bld) 7.6 % Normal 1.7-12.0 [facility] Comment on above: Performed By: #### C BC ####[facility] Wadlzxrmdw4425 [place], [place] [address]Ei. Donna Malone NEUT # 5.2 103/ul Normal 1.4-6.5 [facility] Comment on above: Performed By: #### C BC ####[facility] Mojxraqpvd3364 [place] [id number]. Donna Malone Neutrophils/100 WBC (Bld) 71.0 % Normal 43.0-75.0 [facility] Comment on above: Performed By: #### C BC ####[facility] Tsaxmmeloe65[address] [place] [id number]. Donna Malone Platelet mean volume (Bld) [Entitic vol] 11.6 fL Normal 9.5-13.5 [facility] Comment on above: Performed By: #### C BC ####[facility] Nmilwlwcia2456 [place] [id number]. Donna Malone PLT 237 103/ul Normal 150-450 [facility] Comment on above: Performed By: #### C BC ####[facility] Ovobinrurr87[address] [place] [address]Dr. Donna Malone RBC 4.02 106/ul Critically low 4.70-6.10 [facility] Comment on above: Performed By: #### C BC ####[facility] Puxewbizcc0425 [place] [id number]. Donna Malone WBC 7.3 103/ul Normal 4.0-11.0 [facility] Comment on above: Performed By: #### C BC ####[facility] Vxshydskvu18[address] [place] [id number]. Donna Malone [facility]on SARS-CoV-2 (COVID-19) RNA JOSÉ MIGUEL+probe Ql (Unsp spec) Not detected Normal NOT DETECTED [facility] Comment on above: Result Comment: When diagnostic [...] for this test is supported by the [place] of Health and Human Service's declaration that [...] be used). Performed By: #### C VDTBH ####[facility] Yncemcvpfj4[address] [place], [place] [address]Dr. Donna Malone LACTATE/LACTIC ACIDon 2021 Lactate [Moles/Vol] 1.3 mmol/L Normal 0.4-1.9 [facility] Comment on above: Performed By: #### L ACT ####[facility] [address]yfslxmaax[address] [place], [place] [address]Dr. Donna Malone PROF 14(COMP METB)on 022 Albumin [Mass/Vol] 2.9 g/dL Critically low 3.4-5.0 [facility] Comment on above: Performed By: #### Nic KIDD HSTROPN ####[facility] Zxlzwfpfft[address] [place], [place] [address]Dr. Donna Malone Albumin/Globulin [Mass ratio] 0.7 {ratio} Normal [facility] Comment on above: Performed By: #### C MARTI HSTROPN ####[facility] Yfezhkbxbj[address] [place], [place] [address]Dr. Donna Malone ALP [Catalytic activity/Vol] 45 U/L Critically low 46-116 [facility] Comment on above: Performed By: #### C MARTI HSTROPN ####[facility] Munxlahrgd[address] [place], [place] [address]Dr. Donna Malone ALT [Catalytic activity/Vol] 12 U/L Critically low 16-63 [facility] Comment on above: Performed By: #### C MARTI HSTROPN ####[facility] Apckqbparn2[address] [place] [address]Dr. Donna Malone Anion gap [Moles/Vol] 10.9 mmol/L Normal [facility] Comment on above: Performed By: #### C MARTI, HSTROPN ####[facility] Xlqrucaeyy3501 [place] [address]Dr. Donna Malone AST [Catalytic activity/Vol] 10 U/L Critically low 15-37 [facility] Comment on above: Performed By: #### C MARTI, HSTROPN ####[facility] Kiwtzenijo4237 [place] [address]Dr. Rubyyvan Malone Bilirubin [Mass/Vol] 0.3 mg/dL Normal 0.2-1.0 [facility] Comment on above: Performed By: #### C MARTI, HSTROPN ####[facility] Ulddeoqxaq9849 [place] [address]Dr. Rubyyvan Malone Calcium [Mass/Vol] 8.9 mg/dL Normal 8.5-10.1 [facility] Comment on above: Performed By: #### C MARTI, HSTROPN ####[facility] Skrgvdgcgy8154 [place] [address]Dr. Rubyyvan Malone Chloride [Moles/Vol] 106 mmol/L Normal 98-107 [facility] Comment on above: Performed By: #### C MARTI, HSTROPN ####[facility] Dnvbdwseqb6305 [place] [address]Dr. Donna Malone CO2 [Moles/Vol] 29.4 mmol/L Normal 21.0-32.0 [facility] Comment on above: Performed By: #### C MARTI, HSTROPN ####[facility] Dcmqwldgap4663 [place] [address]Dr. Donna Malone Creatinine [Mass/Vol] 1.15 mg/dL Normal 0.70-1.30 [facility] Comment on above: Performed By: #### C MARTI, HSTROPN ####[facility] Kmircdcyrc24[address] [place] [address]Dr. Rubyyvan Malone EGFR-AF BURUNDIAN >60 Normal >=60 [facility] Comment on above: Performed By: #### C MARTI, HSTROPN ####[facility] Oprvoogock[address] [place] [address]Dr. Donna Malone EGFR-NON AF BUR[place]DIAN >60 Normal >=60 [facility] Comment on above: Performed By: #### C MARTI, HSTROPN ####[facility] Qpbtiprmgl0682 [place] [address]Dr. Donna Malone Globulin (S) [Mass/Vol] 4.2 g/dL Normal [facility] Comment on above: Performed By: #### C MARTI, HSTROPN ####[facility] Rahjotpfqx20[address] [place] [address]Dr. Donna Malone Glucose [Mass/Vol] 116 mg/dL Critically high 74-106 [facility] Comment on above: Performed By: #### C MARTI, HSTROPN ####[facility] Bmyonzoaaf8[address] [place] [address]Dr. Donna Malone Potassium [Moles/Vol] 4.3 mmol/L Normal 3.5-5.1 [facility] Comment on above: Performed By: #### C MARTI, HSTROPN ####[facility] [address]llkfrlkr[address] [place], [place] [address]Dr. Donna Malone Protein [Mass/Vol] 7.1 g/dL Normal 6.4-8.2 [facility] Comment on above: Performed By: #### C MARTI, HSTROPN ####[facility] Ctupgoudor[address] [place] [address]Dr. Donna Malone Sodium [Moles/Vol] 142 mmol/L Normal 136-145 [facility] Comment on above: Performed By: #### C MARTI, HSTROPN ####[facility] Gjjqohaymu[address] [place], [place] [address]Dr. Donna Malone Urea nitrogen [Mass/Vol] 9.0 mg/dL Normal 7.0-18.0 [facility] Comment on above: Performed By: #### C MARTI, HSTROPN ####[facility] [address] [place], [place] [address]Dr. Donna Malone Urea nitrogen/Creatinine [Mass ratio] 7.8 mg/mg Normal [facility] Comment on above: Performed By: #### C MARTI, HSTROPN ####[facility] [address] [place], [place] [address]Dl. Donna Malone TROPONIN, HIGH SENSITIVITYon 08-10-2022 HSTROP 9.1 pg/mL Normal 4.0-76.1 [facility] Comment on above: Result Comment: CUT- OFF POINTS HAVE BEEN ESTABLISHED BASED ON THE FOURTH UNIVERSAL DEFINITIONS OF MYOCARDIALINFARCTION. THE UPPER REFERENCE LIMIT (URL) OF TROPONIN, DEFINED THE 99TH PERCENTILE OFcTnI DISTRIBUTION IN A REFERENCE POPULATION, HAS BEEN CONFIRMED THE DECISION THRESHOLDFOR GA DIAGNOSIS. Performed By: #### C MARTI, HSTROPN ####[facility] [address] [place], [place] [address]Cn. Donna Malone XR KNEE RT 4V or >on 022 XR KNEE RT 4V or > Normal [facility] CT HEAD WO [facility] 08-05-2022 CT HEAD WO CON Normal [facility] CON Normal [facility]ONES WO CON Normal [facility] LSPINE WO CON Normal [facility] Glucose Glucometer (BldC) [M ass/Vol]Ordered By: Sang Bauer on 07-20-2022 Glucose [Mass/Vol] 139 mg/dL [place] Comment on above: Random Glucose Refer ence Range is dependent on time and content of last meal. Glucose of more than 200 mg/dL in a nonstressed, ambulatory subject supports the diagnosis of Diabetes Mellitus. No Panel InformationOrdered By: Sang Bauer on 07-20-2022 Bedside Glucose Comment Glu2: cleaned meter [facility] Cholesterol [Mass/volume] in Serum or PlasmaOrdered By: Sang Bauer on 07-18-2022 Cholesterol [Mass/Vol] 136 mg/dL 140-200 [facility] Comment on above: Chol less than 200 m g/dl low riskChol 201-239 mg/dl borderline riskChol 240 mg/dl and greater high risk Cholesterol in LDL Calc [Mas s/Vol]Ordered By: Sang Bauer on 07-18-2022 Cholesterol in LDL [Mass/Vol] 81 mg/dL 0-100 [facility] Comment on above: LDL ATP III CLASSIFI CATIONLDL less than 100 mg/dL OptimalLDL 100-129 mg/dL Near or above optimalLDL 130-159 mg/dL Borderline highLDL 160-189 mg/dL HighLDL greater than 189 mg/dL Very high Cholesterol in VLDL Calc [Ma ss/Vol]Ordered By: Sang Bauer on 07-18-2022 Cholesterol in VLDL [Mass/Vol] 17 mg/dL [facility] Serum or plasma high density lipoprotein (HDL) cholesterol measurementOrdered By: Sang Bauer on 07-18-2022 Cholesterol in HDL [Mass/Vol] 38 mg/dL 29-71 [facility] Comment on above: HDL CHOL ATP-III CLA SSIFICATION Cardiovascular RiskHDL > or equal to 60 mg/dL LOWHDL < 40 mg/dL HIGH Serum or plasma total choles terol/high density lipoprotein (HDL) cholesterol mass ratOrdered By: aSng Bauer on 07-18-2022 Cholesterol.total/Chol esterol in HDL [Mass ratio] 3.6 {ratio} <5.0 [facility] Triglyceride [Mass/volume] i n Serum or PlasmaOrdered By: Sang Bauer on 07-18-2022 Triglyceride [Mass/Vol] 85 mg/dL 35-149 [facility] Comment on above: TRIG ATP III CLASSIF [...] aPTT Coag (PPP) [Time] 35.8 s 25.1-36.5 [facility] Albumin [Mass/volume] in Ser um or PlasmaOrdered By: Gayathri Leal on 07-17-2022 Albumin [Mass/Vol] 3.1 g/dL 3.2-5.5 [place] Amphetamine Screen Ql (U)Ord ered By: Gayathri Leal on 07-17-2022 Amphetamines Ql (U) Negative Negative [facility] Automated erythrocytes count in urine sediment (number/area)Ordered By: Gayathri Leal on 07-17-2022 RBC Auto (Urine sed) [#/Area] 3-4 [HPF] 0-4 [facility] Automated leukocytes count i n urine sediment (number/area)Ordered By: Gayathri Leal on 07-17-2022 WBC Auto (Urine sed) [#/Area] 1-2 [HPF] 0-4 [facility] Barbiturates [Presence] in U rineOrdered By: Gayathri Leal on 07-17-2022 Barbiturates Ql (U) Negative Negative [facility] Basophils Auto (Bld) [#/Vol] Ordered By: Gayathri Leal on 07-17-2022 Basophils (Bld) [#/Vol] 0.1 10*3/uL 0.0-0.2 [facility] Basophils/100 WBC Auto (Bld) Ordered By: Gayathri Leal on 07-17-2022 Basophils/100 WBC (Bld) 1.0 % . [facility] Benzodiazepines [Presence] i n UrineOrdered By: Gayathri Leal on 07-17-2022 Benzodiazepines Ql (U) Positive Negative [facility] Bilirubin Test strip Ql (U)O rdered By: Gayathri Leal on 07-17-2022 Bilirubin Ql (U) Negative Negative [facility] COVID CepheidOrdered By: Olya Leal on 07-17-2022 SARS-CoV-2 (COVID-19) Ab IA Ql Negative Negative [facility] Comment on above: This is a duplicate [employer] Xpert Xpress CoV-2/Flu/RSV Plus RNA by RT-PCR result to be used for statistical tracking purpose only. SARS-CoV-2 (COVID-19) RNA JOSÉ MIGUEL+probe Ql (Unsp spec) [facility] Cannabinoids [Presence] in U rine by Screen methodOrdered By: Gayathri Leal on 07-17-2022 Cannabinoids Screen Ql (U) Negative Negative [facility] Comment on above: These are unconfirme d results and should not be used for legal purposes. Drug Cut-Off Concentration: AMPH 1000 ng/mL EWA 200 ng/mL JOHN 200 ng/mL COCM 300 ng/mL OP 300 ng/mL PCP 25 ng/mL THC 20 ng/mL Color Auto (U)Ordered By: Dung Leal on 07-17-2022 Color (U) Yellow Yellow [facility] Creatine kinase [Enzymatic a ctivity/volume] in Serum or PlasmaOrdered By: Gayathri Leal on 07-17-2022 CK [Catalytic activity/Vol] 137 U/L 22-269 [facility] Creatinine and Glomerular fi ltration rate.predicted panel (S/P/Bld)Ordered By: Gayathri Leal on 07-17-2022 Creatinine [Mass/Vol] 1.06 mg/dL 0.64-1.27 [facility] Direct bilirubin measurement Ordered By: Gayathri Leal on 07-17-2022 Bilirubin.direct [Mass/Vol] mg/dL 0.0-0.4 [facility] Eosinophils Auto (Bld) [#/Vo l]Ordered By: Gayathri Leal on 07-17-2022 Eosinophils (Bld) [#/Vol] 0.1 10*3/uL 0.0-0.45 [facility] Eosinophils/100 WBC Auto (Bl d)Ordered By: Gayathri Leal on 07-17-2022 Eosinophils/100 WBC (Bld) 0.7 % . [facility] Erythrocyte distribution wid th Auto (RBC) [Ratio]Ordered By: Gayathri Leal on 07-17-2022 Erythrocyte distribution width (RBC) [Ratio] 15.8 % 12.0-14.8 [facility] Estimated glomerular filtrat ion rate (GFR) non- AmericanOrdered By: Gayathri Leal on 07-17-2022 GFR/1.73 sq M.predicted among non-blacks MDRD (S/P/Bld) [Vol rate/Area] > 60 mL/Min [facility] Globulin Calc (S) [Mass/Vol] Ordered By: Gayathri Leal on 07-17-2022 Globulin (S) [Mass/Vol] 3.0 g/dL [facility] Glucose mean value [Mass/vol ume] in Blood Estimated from glycated hemoglobinOrdered By: Sang Bauer on 07-17-2022 Average glucose Estimated from glycated hemoglobin (Bld) [Mass/Vol] 114 mg/dL [facility] Hematocrit Auto (Bld) [Volum e fraction]Ordered By: Gayathri Leal on 07-17-2022 Hematocrit (Bld) [Volume fraction] 37.3 % 38.8-50.0 [facility] Hemoglobin A1c percentageOrd ered By: Sang Bauer on 07-17-2022 HbA1c (Bld) [Mass fraction] 5.6 % 4.3-5.6 [facility] Comment on above: Increased risk for d iabetes: 5.7 - 6.4diabetes: >6.4glycemic control for adults with diabetes: <7.0 Hemoglobin [Mass/volume] in BloodOrdered By: Gayathri Leal on 07-17-2022 Hemoglobin (Bld) [Mass/Vol] 12.3 g/dL 13.0-17.0 [facility] Ketones Auto test strip (U) [Mass/Vol]Ordered By: Gayathri Leal on 07-17-2022 Ketones (U) [Mass/Vol] 2+ Negative [facility] Laboratory - Chemistry and C hemistry - challengeOrdered By: Gayathri Leal on 07-17-2022 Natriuretic peptide B (Bld) [Mass/Vol] 116.0 pg/mL 5-100 [facility] Laboratory - CoagulationOrde red By: Gayathri Leal on 07-17-2022 PT Coag (PPP) [Time] 12.5 s 9.0-12.9 [facility] Laboratory - Drug toxicology Ordered By: Gayathri Leal on 07-17-2022 Opiates Ql (U) Negative Negative [facility] Laboratory - Hematology and Cell countsOrdered By: Gayathri Leal on 07-17-2022 Nucleated RBC/100 WBC (Bld) [Ratio] 0.1 % 0-0.5 [facility] Laboratory - UrinalysisOrder ed By: Gayathri Leal on 07-17-2022 Hyaline casts LM Ql (Urine sed) None seen [LPF] 0-8 [facility] Leukocytes [#/volume] in Blo od by Automated countOrdered By: Gayathri Leal on 07-17-2022 WBC (Bld) [#/Vol] 7.8 10*3/uL 4.5-11.0 [place] Lymphocytes Auto (Bld) [#/Vo l]Ordered By: Gayathri Leal on 07-17-2022 Lymphocytes (Bld) [#/Vol] 2.3 10*3/uL 1.00-4.8 [facility] Lymphocytes/100 WBC Auto (Bl d)Ordered By: Gayathri Leal on 07-17-2022 Lymphocytes/100 WBC (Bld) 29.5 % . [facility] MCH Auto (RBC) [Entitic mass ]Ordered By: Gayathri Leal on 07-17-2022 MCH (RBC) [Entitic mass] 30.2 pg 27.5-35.2 [facility] MCHC Auto (RBC) [Mass/Vol]Or dered By: Gayathri Leal on 07-17-2022 MCHC (RBC) [Mass/Vol] 33.1 g/dL 32.5-35.6 [facility] MCV Auto (RBC) [Entitic vol] Ordered By: Gayathri Leal on 07-17-2022 MCV (RBC) [Entitic vol] 91.5 fL 83.5-101 [facility] Monocyte %Ordered By: Zeinab Leal on 07-17-2022 Monocyte % 20 umol/L [facility] Monocytes Auto (Bld) [#/Vol] Ordered By: Gayathri Leal on 07-17-2022 Monocytes (Bld) [#/Vol] 0.4 10*3/uL 0.0-0.8 [facility] Monocytes/100 WBC Auto (Bld) Ordered By: Gayathri Leal on 07-17-2022 Monocytes/100 WBC (Bld) 5.4 % . [facility] Neutrophils Auto (Bld) [#/Vo l]Ordered By: Gayathri Leal on 07-17-2022 Neutrophils (Bld) [#/Vol] 4.9 10*3/uL 1.8-7.7 [facility] Neutrophils/100 WBC Auto (Bl d)Ordered By: Gayathri Leal on 07-17-2022 Neutrophils/100 WBC (Bld) 63.4 % . [facility] Nitrite Test strip Ql (U)Ord ered By: Gayathri Leal on 07-17-2022 Nitrite Ql (U) Negative Negative [facility] No Panel InformationOrdered By: Gayathri Leal on 07-17-2022 Estimated GFR () > 60 mL/Min [facility] Comment on above: GFR estimated refere nce range: According to KDOQI guidelines, <60 ml/min/1.73m2 is sufficient to diagnose a patient with chronic kidney disease. Pharmacy Creatinine Clearance (Chem N/A [facility] Phencyclidine Screen Ql (U)O rdered By: Gayathri Leal on 07-17-2022 Phencyclidine Ql (U) Negative Negative [facility] Platelet mean volume Auto (B ld) [Entitic vol]Ordered By: Gayathri Leal on 07-17-2022 Platelet mean volume (Bld) [Entitic vol] 10.2 fL 6.6-10.1 [facility] Platelet poor plasma interna tional normalized ratio (INR) by coagulation assay (relatOrdered By: Gayathri Leal on 07-17-2022 INR Coag (PPP) [Relative time] 1.1 {INR} [facility] Comment on above: INR Therapeutic Rang e [...] 07-17-2022 Platelets (Bld) [#/Vol] 239 10*3/uL 150-450 [facility] Protein Auto test strip (U) [Mass/Vol]Ordered By: Gayathri Leal on 07-17-2022 Protein (U) [Mass/Vol] Negative Negative [facility] Protein [Mass/volume] in Ser um or PlasmaOrdered By: Gayathri Leal on 07-17-2022 Protein [Mass/Vol] 6.1 g/dL 6.1-7.9 [place] RBC Auto (Bld) [#/Vol]Ordere d By: Gayathri Leal on 07-17-2022 RBC (Bld) [#/Vol] 4.07 10*6/uL 3.90-5.60 [facility] Serum or plasma alanine del valle otransferase measurement without P-5'-P (enzymatic activiOrdered By: Gayathri Leal on 07-17-2022 ALT No additional P-5'-P [Catalytic activity/Vol] 13 U/L 10-60 [facility] Serum or plasma albumin/glob ulin mass ratioOrdered By: Gayathri Leal on 07-17-2022 Albumin/Globulin [Mass ratio] 1.0 {ratio} [facility] Serum or plasma alkaline gail sphatase measurement (enzymatic activity/volume)Ordered By: Gayathri Leal on 07-17-2022 ALP [Catalytic activity/Vol] 37 U/L 32-92 [facility] Serum or plasma anion gap de terminationOrdered By: Gayathri Leal on 07-17-2022 Anion gap [Moles/Vol] 12.1 mmol/L 6.0-15.0 [facility] Serum or plasma aspartate am inotransferase measurement (enzymatic activity/volume)Ordered By: Gayathri Leal on 07-17-2022 AST [Catalytic activity/Vol] 15 U/L 10-42 [facility] Serum or plasma calcium deepti urement (mass/volume)Ordered By: Gayathri Leal on 07-17-2022 Calcium [Mass/Vol] 8.8 mg/dL 8.2-10.2 [place] Serum or plasma chloride deepak surement (moles/volume)Ordered By: Gayathri Leal on 07-17-2022 Chloride [Moles/Vol] 108 mmol/L 95-114 [facility] Serum or plasma creatine kin ase MB (CKMB)/total creatine kinase (CK) ratio by calculaOrdered By: Gayathri Leal on 07-17-2022 CK.MB Calc [Catalytic fraction] 2.6 % 0.00-2.50 [facility] Serum or plasma creatine kin ase MB measurement (mass/volume)Ordered By: Gayathri Leal on 07-17-2022 CK.MB [Mass/Vol] 3.6 ng/mL 0.6-6.3 [facility] Serum or plasma glucose deepti urement (mass/volume)Ordered By: Gayathri Leal on 07-17-2022 Glucose [Mass/Vol] 91 mg/dL 70-100 [place] Comment on above: ADA recommended refe rence rangeRandom Glucose Reference Range is dependent on time and content of last meal. Glucose of more than 200 mg/dL in a nonstressed, ambulatory subject supports the diagnosis of Diabetes Mellitus. Serum or plasma non-glucuron idated bilirubin measurement (mass/volume)Ordered By: Gayathri Leal on 07-17-2022 Bilirubin.indirect [Mass/Vol] TNP [facility] Comment on above: Test not performed Serum or plasma potassium me asurement (moles/volume)Ordered By: Gayathri Leal on 07-17-2022 Potassium [Moles/Vol] 4.0 mmol/L 3.5-5.1 [facility] Serum or plasma sodium measu rement (moles/volume)Ordered By: Gayathri Leal on 07-17-2022 Sodium [Moles/Vol] 139 mmol/L 136-146 [place] Serum or plasma total biliru bin measurement (mass/volume)Ordered By: Gayathri Leal on 07-17-2022 Bilirubin [Mass/Vol] 0.8 mg/dL 0.3-1.2 [facility] Serum or plasma total carbon dioxide measurement (moles/volume)Ordered By: Gayathri Leal on 07-17-2022 CO2 [Moles/Vol] 22.9 mmol/L 22.0-30.0 [facility] Serum or plasma urea nitroge n measurement (mass/volume)Ordered By: Gayathri Leal on 07-17-2022 Urea nitrogen [Mass/Vol] 12 mg/dL 9-23 [facility] Specific gravity Auto test s trip (U) [Rel density]Ordered By: Gayathri Leal on 07-17-2022 Specific gravity (U) [Rel density] 1.024 1.001-1.03 0 [facility] Squamous epithelial cells de tection in urine sediment by light microscopyOrdered By: Gayathri Leal on 07-17-2022 Epithelial cells.squamous LM Ql (Urine sed) None seen [HPF] 0-2 [facility] Troponin I.cardiac [Mass/vol ume] in Serum or Plasma by High sensitivity methodOrdered By: Sang Bauer on 07-17-2022 Troponin I.cardiac High sensitivity method [Mass/Vol] 7 pg/mL 0-20 [facility] Urine bacteria detection by automated methodOrdered By: Gayathri Leal on 07-17-2022 Bacteria Auto Ql (U) None seen None Seen [facility] Urine clarity by refractomet ry automatedOrdered By: Gayathri Leal on 07-17-2022 Clarity Refractometry automated (U) Clear Clear [facility] Urine cocaine detectionOrder ed By: Gayathri Leal on 07-17-2022 Cocaine Ql (U) Negative Negative [facility] Urine glucose measurement by automated test strip (mass/volume)Ordered By: Gayathri Leal on 07-17-2022 Glucose Auto test strip (U) [Mass/Vol] Normal mg/dL Normal [facility] Urine hemoglobin detection b y automated test stripOrdered By: Gayathri Leal on 07-17-2022 Hemoglobin Auto test strip Ql (U) Negative Negative [facility] Urine leukocyte esterase det ection by automated test stripOrdered By: Gayathri Leal on 07-17-2022 Leukocyte esterase Auto test strip Ql (U) 1+ Negative [facility] Urobilinogen Auto test strip (U) [Mass/Vol]Ordered By: Gayathri Leal on 07-17-2022 Urobilinogen (U) [Mass/Vol] Normal mg/dL Normal [facility] pH Auto test strip (U)Ordere d By: Gayathri Leal on 07-17-2022 pH (U) 6.5 [pH] 5.0-9.0 [facility] AMMONIAon 07-16-2022 Ammonia (P) [Moles/Vol] 44 umol/L Critically high [facility] Comment on above: Performed By: #### A MM ####[facility] [address] [place], [place] [address]Dr. Donna Malone BNPon 07-16-2022 Natriuretic peptide B (Bld) [Mass/Vol] 236.0 pg/mL Normal <=900.0 [facility] Comment on above: Performed By: #### C MP, BNP ####[facility] [address] [place], [place] [address]Dr. Donna Malone CBC AUTO DIFFon 07-16-2022 BASO # 0.1 103/ul Normal 0.0-0.1 [facility] Comment on above: Performed By: #### C BC ####[facility] [address] [place], [place] [address]Dr. Rubyyvan Malone Basophils/100 WBC (Bld) 1.0 % Normal 0.2-2.0 [facility] Comment on above: Performed By: #### C BC ####[facility] [address] [place], [place] [address]Dr. Donna Malone EO # 0.2 103/ul Normal 0.0-0.7 [facility] Comment on above: Performed By: #### C BC ####[facility] [address] [place], [place] [address]Dr. Donna Malone Eosinophils/100 WBC (Bld) 3.3 % Normal 0.9-7.0 [facility] Comment on above: Performed By: #### C BC ####[facility] [address] [place], [place] [address]Dr. Donna Malone Erythrocyte distribution width (RBC) [Ratio] 15.1 % Critically high 11.0-15.0 [facility] Comment on above: Performed By: #### C BC ####[facility] [address] [place] [address]Dr. Donna Malone Hematocrit (Bld) [Volume fraction] 36.1 % Critically low 42.0-54.0 [facility] Comment on above: Performed By: #### C BC ####[facility] [address] [place] [address]Dr. Donna Malone Hemoglobin (Bld) [Mass/Vol] 12.0 g/dL Critically low 14.0-18.0 [facility] Comment on above: Performed By: #### C BC ####[facility] [address] [place], [place] [address]Dr. Donna Malone IG # 0.01 10e3/ul Normal 0.00-0.03 [facility] Comment on above: Performed By: #### C BC ####[facility] [address] [place], [place] [address]Dr. Donna Malone IG % 0.2 % Normal 0.0-0.5 [facility] Comment on above: Performed By: #### C BC ####[facility] [address] [place], [place] [address]Dr. Donna Malone LYMPH # 2.5 103/ul Normal 1.2-3.8 [facility] Comment on above: Performed By: #### C BC ####[facility] [address] [place], [place] [address]Dr. Donna Malone Lymphocytes/100 WBC (Bld) 41.1 % Normal 20.5-60.0 [facility] Comment on above: Performed By: #### C BC ####[facility] [address] [place], [place] [address]Dr. Donna Malone MANUAL DIFF REQ NO Normal [facility] Comment on above: Performed By: #### C BC ####[facility] [address] [place], [place] [address]Dr. Donna Malone MCH (RBC) [Entitic mass] 30.6 pg Normal 25.9-34.0 [facility] Comment on above: Performed By: #### C BC ####[facility] [address] [place] [id number]. Donna Malone MCHC (RBC) [Mass/Vol] 33.2 g/dL Normal 29.9-35.2 [facility] Comment on above: Performed By: #### C BC ####[facility] [address] [place] [id number]. Donna Malone MCV (RBC) [Entitic vol] 92.1 fL Normal 80.0-94.0 [facility] Comment on above: Performed By: #### C BC ####[facility] [address] [place] [id number]. Donna Faisal MONO # 0.5 103/ul Normal 0.3-0.8 [facility] Comment on above: Performed By: #### C BC ####[facility] [address] [place], [place] [address]Dr. Donna Malone Monocytes/100 WBC (Bld) 7.4 % Normal 1.7-12.0 [facility] Comment on above: Performed By: #### C BC ####[facility] [address] [place], [place] [address]Dr. Donna Malone NEUT # 2.9 103/ul Normal 1.4-6.5 [facility] Comment on above: Performed By: #### C BC ####[facility] [address] [place] [id number]. Donna Malone Neutrophils/100 WBC (Bld) 47.0 % Normal 43.0-75.0 [facility] Comment on above: Performed By: #### C BC ####[facility] [address] [place], [place] [address]Dr. Donna Malone Platelet mean volume (Bld) [Entitic vol] 11.4 fL Normal 9.5-13.5 [facility] Comment on above: Performed By: #### C BC ####[facility] [address] [place] [id number]. Donna Malone PLT 206 103/ul Normal 150-450 [facility] Comment on above: Performed By: #### C BC ####[facility] [address] [place] [id number]. Donna Faisal RBC 3.92 106/ul Critically low 4.70-6.10 [facility] Comment on above: Performed By: #### C BC ####[facility] [address] [place] [address]Dr. Donna Faisal WBC 6.1 103/ul Normal 4.0-11.0 [facility] Comment on above: Performed By: #### C BC ####[facility] [address] [place] [address]Dr. Rubyyvan Malone ECHO LIMITED STUDYon 022 ECHO LIMITED STUDY Normal [facility] MRI BRAIN WO CONon 2 MRI BRAIN WO CON Normal [facility] PROF 14(COMP METB)on 022 Albumin [Mass/Vol] 2.8 g/dL Critically low 3.4-5.0 [facility] Comment on above: Performed By: #### C MP, BNP ####[facility] [address] [place] [address]Dr. Donna Faisal Albumin/Globulin [Mass ratio] 0.9 {ratio} Normal [facility] Comment on above: Performed By: #### C MP, BNP ####[facility] [address] [place] [address]Dr. Donna Malone ALP [Catalytic activity/Vol] 36 U/L Critically low 46-116 [facility] Comment on above: Performed By: #### C MP, BNP ####[facility] [address] [place] [address]Dr. Donna Malone ALT [Catalytic activity/Vol] 13 U/L Critically low 16-63 [facility] Comment on above: Performed By: #### C MP, BNP ####[facility] [address] [place] [address]Dr. Donna Malone Anion gap [Moles/Vol] 10.4 mmol/L Normal [facility] Comment on above: Performed By: #### C MP, BNP ####[facility] [address] [place], [place] [address]Dr. Donna Malone AST [Catalytic activity/Vol] 13 U/L Critically low 15-37 [facility] Comment on above: Performed By: #### C MP, BNP ####[facility] [address] [place] [address]Dr. Donna Malone Bilirubin [Mass/Vol] 0.3 mg/dL Normal 0.2-1.0 [facility] Comment on above: Performed By: #### C MP, BNP ####[facility] [address] [place] [address]Dr. Donna Malone Calcium [Mass/Vol] 8.2 mg/dL Critically low 8.5-10.1 [facility] Comment on above: Performed By: #### C MP, BNP ####[facility] [address] [place], [place] [address]Dr. Donna Malone Chloride [Moles/Vol] 108 mmol/L Critically high 98-107 [facility] Comment on above: Performed By: #### C MP, BNP ####[facility] [address] [place], [place] [address]Dr. Donna Malone CO2 [Moles/Vol] 25.5 mmol/L Normal 21.0-32.0 [facility] Comment on above: Performed By: #### C MP, BNP ####[facility] Lelbbgevdv[address] [place], [place] [address]Dr. Donna Malone Creatinine [Mass/Vol] 0.92 mg/dL Normal 0.70-1.30 [facility] Comment on above: Performed By: #### C MP, BNP ####[facility] Qargjjbumn06[address] [place], [place] [address]Dr. Donna Malone EGFR-AF BURUNDIAN >60 Normal >=60 [facility] Comment on above: Performed By: #### C MP, BNP ####[facility] Ksormfrtdf[address] [place], [place] [address]Dr. Donna Malone EGFR-NON AF BURUNDIAN >60 Normal >=60 [facility] Comment on above: Performed By: #### C MP, BNP ####[facility] Fqvzcwzrrh[address] [place] [address]Dr. Donna Malone Globulin (S) [Mass/Vol] 3.2 g/dL Normal [facility] Comment on above: Performed By: #### C MP, BNP ####[facility] Vqjilqqmrg[address] [place], [place] [address]Dr. Donna Malone Glucose [Mass/Vol] 76 mg/dL Normal 74-106 [facility] Comment on above: Performed By: #### C MP, BNP ####[facility] Cwwjcgctca[address] [place], [place] [address]Dr. Donna Malone Potassium [Moles/Vol] 3.9 mmol/L Normal 3.5-5.1 [facility] Comment on above: Performed By: #### C MP, BNP ####[facility] Vawqzkqowq[address] [place], [place] [address]Dr. Donna Malone Protein [Mass/Vol] 6.0 g/dL Critically low 6.4-8.2 [facility] Comment on above: Performed By: #### C MP, BNP ####[facility] Hvyjvfwzio[address] [place], [place] [address]Dr. Donna Malone Sodium [Moles/Vol] 140 mmol/L Normal 136-145 [facility] Comment on above: Performed By: #### C MP, BNP ####[facility] Cyplhlazgf[address] [place], [place] [address]Dr. Donna Malone Urea nitrogen [Mass/Vol] 12.0 mg/dL Normal 7.0-18.0 [facility] Comment on above: Performed By: #### C MP, BNP ####[facility] Nwuvduqhbi[address] [place], [place] [address]Dr. Donna Malone Urea nitrogen/Creatinine [Mass ratio] 13.0 mg/mg Normal [facility] Comment on above: Performed By: #### C MP, BNP ####[facility] Ufctseshfk[address] [place], [place] [address]Dr. Donna Malone VIT B12 AND FOLATEon 022 Cobalamin (Vitamin B12) [Mass/Vol] 532.0 pg/mL Normal 193.0-986. 0 [facility] Comment on above: Performed By: #### B 12FOL ####[facility] Rdcumffpnl[address] [place] [address]Dr. Donna Malone FOLATE 13.60 ng/mL Normal 8.60-58.90 [facility] Comment on above: Performed By: #### B 12FOL ####[facility] Ktjwcqrowr[address] [place] [address]Dr. Donna Malone AMMONIAon 07-15-2022 Ammonia (P) [Moles/Vol] 23 umol/L Normal [facility] Comment on above: Performed By: #### A MM ####[facility] Pgumizzlml[address] [place], [place] [address]Dr. Donna Malone BLOOD GASES BTYon 07-15-2022 02 MODE ROOM AIR Normal [facility] Comment on above: Performed By: #### A BG ####[facility] Edxrcmnlct1332[address] [place], [place] [address]Dr. Donna Malone ALLENS TEST Positive Normal [facility] Comment on above: Performed By: #### A BG ####[facility] Kgbpxbzjwb13[address] [place], [place] [address]Dr. Donna Malone Base excess Calc (Bld) [Moles/Vol] -1.3000 mmol/L Normal -2.0-2.0 [facility] Comment on above: Performed By: #### A BG ####[facility] Ejetapxhih[address] [place], [place] [address]Dr. Donna Malone BIPAP PRESSURE Normal [facility] Comment on above: Performed By: #### A BG ####[facility] Dexdhiifhk5768[address] [place], [place] [address]Dr. Donna Malone CPAP Normal [facility] Comment on above: Performed By: #### A BG ####[facility] Rgwwqomxbp2723[address] [place], [place] [address]Dr. Donna Malone FIO2 Normal [facility] Comment on above: Performed By: #### A BG ####[facility] Ujougmlope[address]75[address] [place], [place] [address]Dr. Donna Malone HCO3 (Bld) [Moles/Vol] 22.7 mmol/L Normal 22.0-26.0 [facility] Comment on above: Performed By: #### A BG ####[facility] Uzymvodyuw19[address] [place], [place] [address]Dr. Donna Malone LPM Normal [facility] Comment on above: Performed By: #### A BG ####[facility] Pfcjlnhegz24[address] [place], [place] [address]Dr. Donna Malone MINUTE VOLUME Normal [facility] Comment on above: Performed By: #### A BG ####[facility] Geeljsilpp[address] [place], [place] [address]Dr. Donna Malone Oxygen (Bld) [Partial pressure] 77.7 mm[Hg] Critically low 80.0-100.0 [facility] Comment on above: Performed By: #### A BG ####[facility] Xwsxjhmonw[address] [place], [place] [address]Dr. Donna Malone Oxygen saturation in Blood 95.9 % Normal 95.0-100.0 [facility] Comment on above: Performed By: #### A BG ####[facility] Edfdvlelah[address] [place], [place] [address]Dr. Donna Malone PCO2 33.0 mmHg Critically low 35.0-45.0 [facility] Comment on above: Performed By: #### A BG ####[facility] Texznxhadh[address] [place], [place] [address]Dr. Donna Malone PEEP [facility] Comment on above: Performed By: #### A BG ####[facility] Dcgqebhqzj75[address] [place], [place] [address]Dr. Donna Malone pH (Bld) 7.446 [pH] Normal 7.350-7.45 0 [facility] Comment on above: Performed By: #### A BG ####[facility] Hhjzjvtmug[address] [place], [place] [address]Dr. Donna Malone PIP Normal [facility] Comment on above: Performed By: #### A BG ####[facility] Yyvcdsrsqe[address] [place], [place] [address]Dr. Donna Malone PS Normal [facility] Comment on above: Performed By: #### A BG ####[facility] Jozitvazgu[address] [place] [address]Dr. Donna Malone PUNCTURE SITE RB [facility] Comment on above: Performed By: #### A BG ####[facility] Skcpcudecj[address] [place] [address]Dr. Donna Malone RATE Normal [facility] Comment on above: Performed By: #### A BG ####[facility] Bnwenpiixr5[address] [place] [address]Dr. Donna Malone VENT MODE [facility] Comment on above: Performed By: #### A BG ####[facility] Bcjexfqrbl78[address] [place] [address]Dr. Donna Malone VT [facility] Comment on above: Performed By: #### A BG ####[facility] Pafvkkbeot[address] [place], [place] [address]Dr. Donna Malone BNPon 07-15-2022 Natriuretic peptide B (Bld) [Mass/Vol] 111.0 pg/mL Normal <=900.0 [facility] Comment on above: Performed By: #### B TAR WORKER, CMP, CMADM ####[facility] Wlrutmkzce74[address] [place] [address]Dr. Donna Malone CARDIAC MJ 3-6on 2 CK [Catalytic activity/Vol] 102 U/L Normal 39-308 [facility] Comment on above: Performed By: #### C MREP ####[facility] Ikwpbigaof35[address] [place] [address]Dr. Donna Malone CK.MB [Mass/Vol] 3.67 ng/mL Critically high <=3.60 [facility] Comment on above: Performed By: #### C MREP ####[facility] Etjkouulms[address] [place] [address]Dr. Donna Malone HSTROP 13.1 pg/mL Normal 4.0-76.1 [facility] Comment on above: Result Comment: CUT- OFF POINTS HAVE BEEN ESTABLISHED BASED ON THE FOURTH UNIVERSAL DEFINITIONS OF MYOCARDIALINFARCTION. THE UPPER REFERENCE LIMIT (URL) OF TROPONIN, DEFINED THE 99TH PERCENTILE OFcTnI DISTRIBUTION IN A REFERENCE POPULATION, HAS BEEN CONFIRMED THE DECISION THRESHOLDFOR GA DIAGNOSIS. Performed By: #### C MREP ####[facility] Vshuxkhmcg[address] [place] [id number]. Donna Malone CK [Catalytic activity/Vol] 89 U/L Normal 39-308 [facility] Comment on above: Performed By: #### C MREP ####[facility] Ppkypcdswl60[address] [place] [id number]. Donna Malone CK.MB [Mass/Vol] 3.37 ng/mL Normal <=3.60 [facility] Comment on above: Performed By: #### C MREP ####[facility] Mfddcpktwt4661 [place] [address]Dr. Donna Malone HSTROP 11.2 pg/mL Normal 4.0-76.1 [facility] Comment on above: Result Comment: CUT- OFF POINTS HAVE BEEN ESTABLISHED BASED ON THE FOURTH UNIVERSAL DEFINITIONS OF MYOCARDIALINFARCTION. THE UPPER REFERENCE LIMIT (URL) OF TROPONIN, DEFINED THE 99TH PERCENTILE OFcTnI DISTRIBUTION IN A REFERENCE POPULATION, HAS BEEN CONFIRMED THE DECISION THRESHOLDFOR GA DIAGNOSIS. Performed By: #### C MREP ####[facility] Xzhzncfrvl54[address] [place] [address]Dr. Donna Malone CARDIAC MJ ADMITon 022 CK [Catalytic activity/Vol] 76 U/L Normal 39-308 [facility] Comment on above: Performed By: #### B TAR WORKER, CMP, CMADM ####[facility] Brtkkyjewl26[address] [place] [id number]. Donna Malone CK.MB [Mass/Vol] 2.59 ng/mL Normal <=3.60 [facility] Comment on above: Performed By: #### B TAR WORKER, CMP, CMADM ####[facility] Lprunylhio10[address] [place] [id number]. Donna Malone HSTROP 10.1 pg/mL Normal 4.0-76.1 [facility] Comment on above: Result Comment: CUT- OFF POINTS HAVE BEEN ESTABLISHED BASED ON THE FOURTH UNIVERSAL DEFINITIONS OF MYOCARDIALINFARCTION. THE UPPER REFERENCE LIMIT (URL) OF TROPONIN, DEFINED THE 99TH PERCENTILE OFcTnI DISTRIBUTION IN A REFERENCE POPULATION, HAS BEEN CONFIRMED THE DECISION THRESHOLDFOR GA DIAGNOSIS. Performed By: #### B TAR WORKER, CMP, CMADM ####[facility] Uobopsfgeq93[address] [place] [address]Dr. Donna Malone BINDU 109 ng/mL Critically high 16-96 [facility] Comment on above: Performed By: #### B TAR WORKER, CMP, CMADM ####[facility] Ytpnpyubpg0138 [place] [address]Dr. Donna Malone CBC AUTO DIFFon 07-15-2022 BASO # 0.0 103/ul Normal 0.0-0.1 [facility] Comment on above: Performed By: #### C BC ####[facility] Hexzldbvhc47[address] [place], [place] [address]Dr. Donna Malone Basophils/100 WBC (Bld) 0.7 % Normal 0.2-2.0 [facility] Comment on above: Performed By: #### C BC ####[facility] Wjdggtalot[address] [place], [place] [address]Dr. Donna Malone EO # 0.1 103/ul Normal 0.0-0.7 [facility] Comment on above: Performed By: #### C BC ####[facility] Cxrxqivaoq[address] [place], [place] [address]Dr. Donna Malone Eosinophils/100 WBC (Bld) 2.3 % Normal 0.9-7.0 [facility] Comment on above: Performed By: #### C BC ####[facility] Edzstendwn[address] [place], [place] [address]Dr. Donna Malone Erythrocyte distribution width (RBC) [Ratio] 15.2 % Critically high 11.0-15.0 [facility] Comment on above: Performed By: #### C BC ####[facility] Cctnqbuchc[address] [place], [place] [address]Dr. Donna Malone Hematocrit (Bld) [Volume fraction] 34.8 % Critically low 42.0-54.0 [facility] Comment on above: Performed By: #### C BC ####[facility] Lytyulrczt1859 [place] [id number]. Donna Malone Hemoglobin (Bld) [Mass/Vol] 11.4 g/dL Critically low 14.0-18.0 [facility] Comment on above: Performed By: #### C BC ####[facility] Lrpzgcqzhe09[address] [place] [id number]. Donna Malone IG # 0.01 10e3/ul Normal 0.00-0.03 [facility] Comment on above: Performed By: #### C BC ####[facility] Jllmfjiwsz86[address] [place] [address]Dr. Donna Malone IG % 0.2 % Normal 0.0-0.5 [facility] Comment on above: Performed By: #### C BC ####[facility] Mqtwejqimv[address] [place], [place] [address]Dr. Donna Malone LYMPH # 1.6 103/ul Normal 1.2-3.8 [facility] Comment on above: Performed By: #### C BC ####[facility] Vowhouwvpn5[address] [place] [address]Dr. Donna Malone Lymphocytes/100 WBC (Bld) 26.4 % Normal 20.5-60.0 [facility] Comment on above: Performed By: #### C BC ####[facility] Odykhtosil[address] [place] [address]Dr. Donna Malone MANUAL DIFF REQ NO Normal [facility] Comment on above: Performed By: #### C BC ####[facility] Zfjvepgrhg9[address] [place] [id number]. Donna Malone MCH (RBC) [Entitic mass] 30.7 pg Normal 25.9-34.0 [facility] Comment on above: Performed By: #### C BC ####[facility] Sjqeebeeuf6530 [place] [id number]. Donna Malone MCHC (RBC) [Mass/Vol] 32.8 g/dL Normal 29.9-35.2 [facility] Comment on above: Performed By: #### C BC ####[facility] Vhsbblpdtg2198 [place] [id number]. Donna Malone MCV (RBC) [Entitic vol] 93.8 fL Normal 80.0-94.0 [facility] Comment on above: Performed By: #### C BC ####[facility] Oynyizcyks3834 [place] [id number]. Donna Malone MONO # 0.5 103/ul Normal 0.3-0.8 [facility] Comment on above: Performed By: #### C BC ####[facility] Ldyplhljjh8194 [place] [id number]. Donna Malone Monocytes/100 WBC (Bld) 7.5 % Normal 1.7-12.0 [facility] Comment on above: Performed By: #### C BC ####[facility] Qbrravcuuw[address] [place], [place] [address]Dr. Donna Malone NEUT # 3.8 103/ul Normal 1.4-6.5 [facility] Comment on above: Performed By: #### C BC ####[facility] Envjneyibn[address] [place], [place] [address]Dr. Donna Malone Neutrophils/100 WBC (Bld) 62.9 % Normal 43.0-75.0 [facility] Comment on above: Performed By: #### C BC ####[facility] Fuzrohkqxb[address] [place], [place] [address]Dr. Donna Malone Platelet mean volume (Bld) [Entitic vol] 11.7 fL Normal 9.5-13.5 [facility] Comment on above: Performed By: #### C BC ####[facility] Ipvdgmjixg5094 [place] [id number]. Donna Malone PLT 220 103/ul Normal 150-450 [facility] Comment on above: Performed By: #### C BC ####[facility] Xatdvjqzvk5389 [place] [id number]. Donna Faisal RBC 3.71 106/ul Critically low 4.70-6.10 [facility] Comment on above: Performed By: #### C BC ####[facility] Vagtzczkzz[address] [place], [place] [address]Eo. Donna Malone WBC 6.0 103/ul Normal 4.0-11.0 [facility] Comment on above: Performed By: #### C BC ####[facility] Sfcguysgja3622 [place], [place] [address]Dk. Donna Malone CT CSPINE WO CONon 2 CT CSPINE WO CON Normal [facility] CT HEAD WO CONon 07-15-2022 CT HEAD WO CON Normal [facility] CTA NECK WO W CONon 07-15-20 CTA NECK WO W CON Normal [facility] CULTURE URINEon 07-15-2022 CULTURE URINE Culture Observations : LIGHT GROWTH OF MIXED SKIN MICHAEL. NO POTENTIAL PATHOGENS SEEN. Normal [facility] Comment on above: Performed By: #### U RCX ####[facility] Rrxttkjuhv1994 [place], [place] [address]Os. Donna Malone Covid-19 PCR (CVDTB)on SARS-CoV-2 (COVID-19) RNA JOSÉ MIGUEL+probe Ql (Unsp spec) Not detected Normal NOT DETECTED [facility] Comment on above: Result Comment: When diagnostic [...] for this test is supported by the [place] of Health and Human Service's declaration that [...] be used). Performed By: #### C VDTBH ####[facility] Etmybmvjwo4[address] [place] [address]Dr. Donna Malone DEPAKENE/VALPROICon 07-15-20 22 DEPAKENE 53.6 ug/ml Normal 50.0-100.0 [facility] Comment on above: Performed By: #### V ALP ####[facility] Vmbdhaiulq23[address] [place] [address]Dr. Donna Malone DRUG SCREEN RAPID (URINE)on 07-15-2022 AMP Negative Normal NEGATIVE [facility] Comment on above: Performed By: #### D SHARONA, ERUR ####[facility] Wccdaqzoxe15[address] [place] [address]Dr. Donna Malone BAR Negative Normal NEGATIVE [facility] Comment on above: Performed By: #### D SHARONA, ERUR ####[facility] Dlzvnczsgu[address] [place], [place] [address]Dr. Donna Malone BUP Negative Normal NEGATIVE [facility] Comment on above: Performed By: #### Calvin TABOR, ERUR ####[facility] Dmnsoutqkp0116 [place] [address]Dr. Donna Malone BZO Positive Abnormal NEGATIVE [facility] Comment on above: Performed By: #### D SHARONA, ERUR ####[facility] Ktifhfrkml12[address] [place] [address]Dr. Donna Malone EVONNE Negative Normal NEGATIVE [facility] Comment on above: Performed By: #### Calvin TABOR, ERUR ####[facility] Klhsmizrcs0[address] [place], [place] [address]Dr. Donna Malone CUT-OFFS SEE BELOW Normal [facility] Comment on above: Result Comment: AMP (Amphetamine): 500ng/mL, BAR (Barbituates): 200 ng/mL, BZO (Benzodiazepines): 150 ng/mL, BUP (Buprenorphine): 10 ng/mL, EVONNE (Cocaine): 150 ng/mL, mAMP (Methamphetamine): 500 ng/mL, MTD (Methadone): 200 ng/mL, OPI (Opiates): 100 ng/mL, OXY (Oxycodone): 100 ng/mL, PCP (Phencyclidine): 25 ng/mL, PPX (Propoxyphene): 300 ng/mL, THC (Cannabinoids): 50 ng/mL, TCA (Trycyclic Antidepressants): 300 ng/mL Performed By: #### Calvin TABOR, ERUR ####[facility] Omhzegrftp[address] [place] [address]Dr. Donna Malone DRUG CUT HEADER DRUG CLASS TEST SYST EM CUT-OFF CONCENTRATIONS ARE FOLLOWS: Normal [facility] Comment on above: Performed By: #### Calvin TABOR, ERUR ####[facility] Owubqymale[address] [place] [address]Dr. Donna Malone mAMP Negative Normal NEGATIVE [facility] Comment on above: Performed By: #### Calvin TABOR, ERUR ####[facility] Sqkhybpfxv[address] [place], [place] [address]Dr. Donna Malone MTD Negative Normal NEGATIVE [facility] Comment on above: Performed By: #### Calvin TABOR, ERUR ####[facility] Kfytmozymz[address] [place], [place] [address]Dr. Donna Malone OPI Negative Normal NEGATIVE [facility] Comment on above: Performed By: #### Calvin TABOR, ERUR ####[facility] Ipymzgfmpb[address] [place], [place] [address]Dr. Rubyyvan Malone OXY Negative Normal NEGATIVE [facility] Comment on above: Performed By: #### Calvin TABOR, ERUR ####[facility] Tqeuwjrqbk0072 [place] [address]Dr. Donna Malone PCP Negative Normal NEGATIVE [facility] Comment on above: Performed By: #### Calvin TABOR, ERUR ####[facility] Ifymnohgcj1167 [place] [address]Dr. Donna Malone PPX Negative Normal NEGATIVE [facility] Comment on above: Performed By: #### Calvin TABOR, ERUR ####[facility] Pvcenosdnv[address] [place], [place] [address]Dr. Donna Malone TCA Positive Abnormal NEGATIVE [facility] Comment on above: Performed By: #### Calvin TABOR, ERUR ####[facility] Lcxqfwgrao[address] [place], [place] [address]Dr. Donna Malone THC Negative Normal NEGATIVE [facility] Comment on above: Performed By: #### Calvin TABOR, ERUR ####[facility] Hwghxhqgiz3[address] [place], [place] [address]Dr. Donna Malone ER URINE PROFILEon 2 Bilirubin Ql (U) Negative Normal NEGATIVE [facility] Comment on above: Performed By: #### Calvin TABOR, ERUR ####[facility] Ziljlrqtig[address] [place], [place] [address]Dr. Donna Faisal Clarity (U) CLEAR Normal CLEAR [facility] Comment on above: Performed By: #### Calvin TABOR, ERUR ####[facility] Asvaktcwyi[address] [place], [place] [address]Dr. Donna Faisal Color (U) YELLOW Normal YELLOW [facility] Comment on above: Performed By: #### Calvin TABOR, ERUR ####[facility] Cpystdlvce4[address] [place], [place] [address]Dr. Donna Malone ERUAHD A micrscopic examina tion will be performed if indicated. Normal [facility] Comment on above: Performed By: #### Calvin TABOR, ERUR ####[facility] Itoqxibmwp[address] [place], [place] [address]Dr. Donna Faisal Glucose Ql (U) Negative Normal NEGATIVE [facility] Comment on above: Performed By: #### Calvin TABOR, ERUR ####[facility] Jclyovjhma[address] [place], [place] [address]Dr. Donna Malone Hemoglobin Ql (U) Negative Normal NEGATIVE [facility] Comment on above: Performed By: #### Calvin TABOR, ERUR ####[facility] Qmutfeyxdq05[address] [place], [place] [address]Dr. Donna Malone Ketones Ql (U) 15 mg/dl Abnormal NEGATIVE [facility] Comment on above: Performed By: #### Calvin TABOR, ERUR ####[facility] Kvkpqzdyng[address] [place], [place] [address]Dr. Donna Malone LEUKOCYTES Negative Normal NEGATIVE [facility] Comment on above: Performed By: #### D SHARONA, ERUR ####[facility] Hrqrlsxwpz0575 [place] [address]Dr. Donna Malone Nitrite Ql (U) Negative Normal NEGATIVE [facility] Comment on above: Performed By: #### D SHARONA, ERUR ####[facility] Fsstuvannm[address] [place] [address]Dr. Donna Malone pH (U) 6.0 [pH] Normal 5-9 [facility] Comment on above: Performed By: #### Calvin TABOR, ERUR ####[facility] Yffpcuqhty4834 [place] [address]Dr. Donna Malone SPEC GRAVITY >=1.030 Abnormal 1.005-<=1. 025 [facility] Comment on above: Performed By: #### Calvin TABOR, ERUR ####[facility] Jwcjgjqmas[address] [place], [place] [address]Dr. Donna Malone UA PROTEIN TRACE Normal NEGATIVE/ TRACE [facility] Comment on above: Performed By: #### Calvin TABOR, ERUR ####[facility] Vuppihrzuj[address] [place], [place] [address]Dr. Donna Malone UR MICRO IND NOT INDICATED Normal [facility] Comment on above: Performed By: #### Calvin TABOR, ERUR ####[facility] Cgmqhrlgww7[address] [place], [place] [address]Dr. Donna Malone Urobilinogen Qn (U) 0.2 {Jermain'U}/dL Normal 0.2 - 1. 0 [facility] Comment on above: Performed By: #### Calvin TABOR, ERUR ####[facility] Ezhjxtqifd2[address] [place], [place] [address]Dr. Donna Malone ETHANOL (BLD ALC)on 07-15-20 ALC NOTE NOTE: 80 mg/dl is th e legal limit for a blood alcohol level Normal [facility] Comment on above: Performed By: #### E TH ####[facility] Dxggwsrsnh9[address] [place], [place] [address]Dr. Donna Malone Ethanol [Mass/Vol] mg/dL Normal [facility] Comment on above: Performed By: #### E TH ####[facility] Bvkpkglqpb2882 [place] [address]Dr. Donna Malone LACTATE/LACTIC ACIDon 2021 Lactate [Moles/Vol] 1.3 mmol/L Normal 0.4-1.9 [facility] Comment on above: Performed By: #### L ACT ####[facility] Vxrobmhtxf28[address] [place] [address]Dr. Donna Malone PROF 14(COMP METB)on 022 Albumin [Mass/Vol] 2.9 g/dL Critically low 3.4-5.0 [facility] Comment on above: Performed By: #### B TAR WORKER, CMP, CMADM ####[facility] Lykxyvyxik2444 [place] [address]Dr. Donna Malone Albumin/Globulin [Mass ratio] 0.9 {ratio} Normal [facility] Comment on above: Performed By: #### B TAR WORKER, CMP, CMADM ####[facility] Uhbwijllee32[address] [place] [address]Dr. Donna Malone ALP [Catalytic activity/Vol] 37 U/L Critically low 46-116 [facility] Comment on above: Performed By: #### B TAR WORKER, CMP, CMADM ####[facility] Zcpajewokl9409 [place] [address]Dr. Donna Malone ALT [Catalytic activity/Vol] 10 U/L Critically low 16-63 [facility] Comment on above: Performed By: #### B TAR WORKER, CMP, CMADM ####[facility] Hnxhhegmbt0575 [place] [address]Dr. Donna Malone Anion gap [Moles/Vol] 8.0 mmol/L Normal [facility] Comment on above: Performed By: #### B TAR WORKER, CMP, CMADM ####[facility] Ymmipiwggm8565 [place] [address]Dr. Donna Malone AST [Catalytic activity/Vol] 12 U/L Critically low 15-37 [facility] Comment on above: Performed By: #### B TAR WORKER, CMP, CMADM ####[facility] Yzoejzaagg1803 [place] [id number]. Donna Malone Bilirubin [Mass/Vol] 0.3 mg/dL Normal 0.2-1.0 [facility] Comment on above: Performed By: #### B TAR WORKER, CMP, CMADM ####[facility] Tzkuwxtxjx3164 [place] [address]Dr. Donna Malone Calcium [Mass/Vol] 7.9 mg/dL Critically low 8.5-10.1 Th e [facility] Comment on above: Performed By: #### B TAR WORKER, CMP, CMADM ####[facility] Uohzhbvwqk1005 [place] [address]Dr. Donna Malone Chloride [Moles/Vol] 107 mmol/L Normal 98-107 [facility] Comment on above: Performed By: #### B TAR WORKER, CMP, CMADM ####[facility] Jgbepdmtzq4982 [place] [address]Dr. Donna Malone CO2 [Moles/Vol] 27.1 mmol/L Normal 21.0-32.0 [facility] Comment on above: Performed By: #### B TAR WORKER, CMP, CMADM ####[facility] Cwgaisumbv4088 [place] [address]Dr. Donna Malone Creatinine [Mass/Vol] 0.99 mg/dL Normal 0.70-1.30 [facility] Comment on above: Performed By: #### B TAR WORKER, CMP, CMADM ####[facility] Vtbiglecdn3419 [place] [address]Dr. Donna Malone EGFR-AF BURUNDIAN >60 Normal >=60 [facility] Comment on above: Performed By: #### B TAR WORKER, CMP, CMADM ####[facility] Wbetzusrdf4396 [place] [address]Dr. Donna Malone EGFR-NON AF BURUNDIAN >60 Normal >=60 [facility] Comment on above: Performed By: #### B TAR WORKER, CMP, CMADM ####[facility] Luibkhailx3014 [place] [address]Dr. Donna Malone Globulin (S) [Mass/Vol] 3.3 g/dL Normal [facility] Comment on above: Performed By: #### B TAR WORKER, CMP, CMADM ####[facility] Bidjfbazgz9647 [place] [address]Dr. Donna Malone Glucose [Mass/Vol] 101 mg/dL Normal 74-106 [facility] Comment on above: Performed By: #### B TAR WORKER, CMP, CMADM ####[facility] Cgwoflkdgn0975 [place] [address]Dr. Donna Malone Potassium [Moles/Vol] 4.1 mmol/L Normal 3.5-5.1 [facility] Comment on above: Performed By: #### B TAR WORKER, CMP, CMADM ####[facility] Cnopvoklte7408 [place] [address]Dr. Donna Malone Protein [Mass/Vol] 6.2 g/dL Critically low 6.4-8.2 [facility] Comment on above: Performed By: #### B TAR WORKER, CMP, CMADM ####[facility] Znioivapvu5073 [place] [address]Dr. Donna Malone Sodium [Moles/Vol] 138 mmol/L Normal 136-145 [facility] Comment on above: Performed By: #### B TAR WORKER, CMP, CMADM ####[facility] Xbhhapadqn9481 [place] [address]Dr. Donna Malone Urea nitrogen [Mass/Vol] 16.0 mg/dL Normal 7.0-18.0 [facility] Comment on above: Performed By: #### B TAR WORKER, CMP, CMADM ####[facility] Svqgywxtuz3835 [place] [address]Dr. Donna Malone Urea nitrogen/Creatinine [Mass ratio] 16.2 mg/mg Normal [facility] Comment on above: Performed By: #### B TAR WORKER, CMP, CMADM ####[facility] Wofuyglhge6068 [place] [address]Dr. Donna Malone PROTIMEon 07-15-2022 INR Coag (PPP) [Relative time] 1.06 {INR} Normal [facility] Comment on above: Performed By: #### P T, PTT ####[facility] Eixifqdpcr8062 [place] [id number]. Donna Malone INR GUIDELINES SEE BELOW Normal [facility] Comment on above: Result Comment: FLORESITA RED INR: 2.0 - 3.0 CONDITIONS NOT LISTED BELOW 2.5 - 3.5 FOR PROSTHETIC HEART VALVE REPLACEMENT 2.5 - 3.5 RECURRENT THROMBOSIS Performed By: #### P T, PTT ####[facility] Srorgmwtxr75[address] [place], [place] [address]Dr. Donna Malone PT Coag (PPP) [Time] 11.4 s Normal 9.0-11.6 [facility] Comment on above: Performed By: #### P T, PTT ####[facility] Zmktggocha68[address] [place], [place] [address]Dr. Donna Malone PTTon 07-15-2022 aPTT Coag (Bld) [Time] 30.8 s Normal 22.3-36.2 [facility] Comment on above: Performed By: #### P T, PTT ####[facility] Qwlqspaoag36[address] [place], [place] [address]Dr. Donna Malone XR CHEST 1 Von 07-15-2022 XR CHEST 1 V Normal [facility] CULTURE URINEon 06-24-2022 CULTURE URINE Normal [facility] Comment on above: Performed By: #### U RCX ####[facility] Opcumlxvmr9[address] [place], [place] [address]Dr. Donna Malone UA RANDOM W/MICROSCOPICon BACTERIA NONE SEEN Normal NONE SEEN [facility] Comment on above: Performed By: #### U AMIC ####[facility] Yzrxyqthcw17[address] [place], [place] [address]Dr. Donna Malone Bilirubin Ql (U) Negative Normal NEGATIVE [facility] Comment on above: Performed By: #### U AMIC ####[facility] Ppgjcxrytg8071[address] [place], [place] [address]Dr. Donna Malone CAST NONE SEEN Normal NONE SEEN [facility] Comment on above: Performed By: #### U AMIC ####[facility] Ifkzfszhvx50[address] [place], [place] [address]Dr. Donna Malone Clarity (U) CLEAR Normal CLEAR [facility] Comment on above: Performed By: #### U AMIC ####[facility] Dvcjyvohme1210 [place] [address]Dr. Donna Malone Color (U) DK. YELLOW Normal YELLOW [facility] Comment on above: Performed By: #### U AMIC ####[facility] Jcftouhabh8863 [place] [address]Dr. Donna Malone Crystals LM Nom (Urine sed) NONE SEEN Normal NONE SEEN [facility] Comment on above: Performed By: #### U AMIC ####[facility] Fmzctznull[address] [place], [place] [address]Dr. Donna Malone Epithelial cells LM Ql (Urine sed) NONE SEEN Normal NONE SEEN /RARE [facility] Comment on above: Performed By: #### U AMIC ####[facility] Xvydojaaqp884[address] [place], [place] [address]Dr. Donna Malone Glucose Ql (U) 100 mg/dl Abnormal NEGATIVE [facility] Comment on above: Performed By: #### U AMIC ####[facility] Nckkhvjxcg1976[address] [place], [place] [address]Dr. Donna Malone Hemoglobin Ql (U) Negative Normal NEGATIVE [facility] Comment on above: Performed By: #### U AMIC ####[facility] Ryyyqihqmd020[address] [place], [place] [address]Dr. Donna Malone Ketones Ql (U) TRACE Abnormal NEGATIVE [facility] Comment on above: Performed By: #### U AMIC ####[facility] Iremdvljax5692 [place] [address]Dr. Donna Malone LEUKOCYTES Negative Normal NEGATIVE [facility] Comment on above: Performed By: #### U AMIC ####[facility] Oqajpdrijw2574[address] [place], [place] [address]Dr. Donna Malone MUCOUS SMALL Abnormal NONE SEEN [facility] Comment on above: Performed By: #### U AMIC ####[facility] Ninrbvalyk36[address] [place], [place] [address]Dr. Donna Malone Nitrite Ql (U) Negative Normal NEGATIVE [facility] Comment on above: Performed By: #### U AMIC ####[facility] Uqzvrskmcg4925 [place] [address]Dr. Donna Malone pH (U) 6.0 [pH] Normal 5-9 [facility] Comment on above: Performed By: #### U AMIC ####[facility] Toqjxvkqdu4597 [place] [address]Dr. Donna Malone RBC NONE SEEN Abnormal 0-2 [facility] Comment on above: Performed By: #### U AMIC ####[facility] Hqozxpoqgc0914 [place] [address]Dr. Donna Malone SPEC GRAVITY 1.030 Abnormal 1.005-<=1. 025 [facility] Comment on above: Performed By: #### U AMIC ####[facility] Qbiyyjynkr3134[address] [place], [place] [address]Dr. Donna Malone UA PROTEIN Negative Normal NEGATIVE/ TRACE [facility] Comment on above: Performed By: #### U AMIC ####[facility] Nylvtkuzyc32[address] [place], [place] [address]Dr. Donna Malone Urobilinogen Qn (U) 0.2 {Jermain'U}/dL Normal 0.2 - 1. 0 [facility] Comment on above: Performed By: #### U AMIC ####[facility] Aimfhyrtvk100[address] [place], [place] [address]Dr. Donna Malone WBC 2-5 Abnormal NONE SEEN [facility] Comment on above: Performed By: #### U AMIC ####[facility] Jhnylntojy125[address] [place], [place] [address]Dr. Donna Malone COMPLIANCE DRUG SCREENon PDF . Normal [facility] Comment on above: Performed By: #### D SDOALC ####[facility] Cburxredqf[address] [place], [place] [address]Dr. Donna Malone Summary FINAL Normal [facility] Comment on above: Result Comment: =====TOXASSURE COMP [...] call . Performed By: #### D SDOALC ####[facility] Kesmixbruj[address] [place], [place] [address]Dr. Donna Malone CBC AUTO DIFFon 05-16-2022 BASO # 0.0 103/ul Normal 0.0-0.1 [facility] Comment on above: Performed By: #### C BC ####[facility] Pshfwcwxzo18[address] [place], [place] [address]DrElizabteh Malone Basophils/100 WBC (Bld) 0.4 % Normal 0.2-2.0 [facility] Comment on above: Performed By: #### C BC ####[facility] Cmpjkezlwk[address] [place], [place] [address]DrElizabeth Malone EO # 0.1 103/ul Normal 0.0-0.7 [facility] Comment on above: Performed By: #### C BC ####[facility] Iuglvyvmrm5639[address] [place], [place] [address]Dr. Donna Malone Eosinophils/100 WBC (Bld) 0.9 % Normal 0.9-7.0 [facility] Comment on above: Performed By: #### C BC ####[facility] Xexftrbrpj1694 [place] [address]Dr. Donna Malone Erythrocyte distribution width (RBC) [Ratio] 14.9 % Normal 11.0-15.0 [facility] Comment on above: Performed By: #### C BC ####[facility] Dwqkldektu76[address] [place], [place] [address]Dr. Donna Malone Hematocrit (Bld) [Volume fraction] 41.0 % Critically low 42.0-54.0 [facility] Comment on above: Performed By: #### C BC ####[facility] Saaxjnxwja[address] [place], [place] [address]Dr. Donna Malone Hemoglobin (Bld) [Mass/Vol] 13.3 g/dL Critically low 14.0-18.0 [facility] Comment on above: Performed By: #### C BC ####[facility] Ufnjshsodm4[address] [place], [place] [address]Dr. Donna Malone IG # 0.03 10e3/ul Normal 0.00-0.03 [facility] Comment on above: Performed By: #### C BC ####[facility] Bhmrztfapf89[address] [place], [place] [address]Dr. Donna Malone IG % 0.3 % Normal 0.0-0.5 [facility] Comment on above: Performed By: #### C BC ####[facility] Jmvdsofzco364[address] [place], [place] [address]Dr. Donna Malone LYMPH # 1.4 103/ul Normal 1.2-3.8 [facility] Comment on above: Performed By: #### C BC ####[facility] Adbbtzjbct2963[address] [place], [place] [address]Dr. Donna Malone Lymphocytes/100 WBC (Bld) 15.3 % Critically low 20.5-60.0 [facility] Comment on above: Performed By: #### C BC ####[facility] Ufzlvzqexj8345 [place] [address]Dr. Rubyyvan Malone MANUAL DIFF REQ NO Normal [facility] Comment on above: Performed By: #### C BC ####[facility] Rmgcxbhdnf3090 [place] [address]Dr. Donna Faisal MCH (RBC) [Entitic mass] 29.4 pg Normal 25.9-34.0 [facility] Comment on above: Performed By: #### C BC ####[facility] Jwtncabcso8[address] [place], [place] [address]Dr. Donna Faisal MCHC (RBC) [Mass/Vol] 32.4 g/dL Normal 29.9-35.2 [facility] Comment on above: Performed By: #### C BC ####[facility] Cbxlxbskfx[address] [place], [place] [address]Dr. Donna Malone MCV (RBC) [Entitic vol] 90.5 fL Normal 80.0-94.0 [facility] Comment on above: Performed By: #### C BC ####[facility] Qeyilhupnj8[address] [place], [place] [address]Dr. Donna Malone MONO # 0.8 103/ul Normal 0.3-0.8 [facility] Comment on above: Performed By: #### C BC ####[facility] Uaxaynzvvd8[address] [place], [place] [address]Dr. Donna Malone Monocytes/100 WBC (Bld) 8.7 % Normal 1.7-12.0 [facility] Comment on above: Performed By: #### C BC ####[facility] Axybnhcbks[address] [place], [place] [address]DrElizabeth Malone NEUT # 6.9 103/ul Critically high 1.4-6.5 [facility] Comment on above: Performed By: #### C BC ####[facility] Zoezbpfhcr0836[address] [place], [place] [address]Dr. Donna Malone Neutrophils/100 WBC (Bld) 74.4 % Normal 43.0-75.0 [facility] Comment on above: Performed By: #### C BC ####[facility] Uyqaaswnhd4148[address] [place], [place] [address]Dr. Donna Malone Platelet mean volume (Bld) [Entitic vol] 11.9 fL Normal 9.5-13.5 [facility] Comment on above: Performed By: #### C BC ####[facility] Uerxsarrrb0647 [place] [address]Dr. Donna Malone PLT 174 103/ul Normal 150-450 [facility] Comment on above: Performed By: #### C BC ####[facility] Nsupeltwfw1677 [place] [address]Dr. Donna Malone RBC 4.53 106/ul Critically low 4.70-6.10 [facility] Comment on above: Performed By: #### C BC ####[facility] Sscqupobhy4826 [place] [address]Dr. Donna Malone WBC 9.2 103/ul Normal 4.0-11.0 [facility] Comment on above: Performed By: #### C BC ####[facility] Nmitxxclas4830 [place] [address]DrElizabeth Malone PROF 14(COMP METB)on 022 Albumin [Mass/Vol] 3.0 g/dL Critically low 3.4-5.0 [facility] Comment on above: Performed By: #### C MP ####[facility] Gojokqiopy2447 [place] [address]Dr. Donna Malone Albumin/Globulin [Mass ratio] 0.8 {ratio} Normal [facility] Comment on above: Performed By: #### C MP ####[facility] Cvfrhqvfsn1611 [place] [address]DrElizabeth Malone ALP [Catalytic activity/Vol] 39 U/L Critically low 46-116 [facility] Comment on above: Performed By: #### C MP ####[facility] Jlilunyvro[address] [place], [place] [address]DrElizabeth Malone ALT [Catalytic activity/Vol] 16 U/L Normal 16-63 [facility] Comment on above: Performed By: #### C MP ####[facility] Zmfjzskyfw5[address] [place], [place] [address]Dr. Donna Malone Anion gap [Moles/Vol] 10.8 mmol/L Normal Th [facility] Comment on above: Performed By: #### C MP ####[facility] Xyzzrjujmv0606 [place] [address]Dr. Donna Malone AST [Catalytic activity/Vol] 9 U/L Critically low 15-37 [facility] Comment on above: Performed By: #### C MP ####[facility] Diaffmnazp[address] [place], [place] [address]Dr. Donna Malone Bilirubin [Mass/Vol] 0.3 mg/dL Normal 0.2-1.0 [facility] Comment on above: Performed By: #### C MP ####[facility] Qlxazmxkbn4566[address] [place], [place] [address]Dr. Donna Malone Calcium [Mass/Vol] 8.8 mg/dL Normal 8.5-10.1 [facility] Comment on above: Performed By: #### C MP ####[facility] Jjypjmjtoh7[address] [place], [place] [address]Dr. Donna Malone Chloride [Moles/Vol] 105 mmol/L Normal 98-107 [facility] Comment on above: Performed By: #### C MP ####[facility] Qnfnilulxt3056[address] [place], [place] [address]Dr. Donna Malone CO2 [Moles/Vol] 26.7 mmol/L Normal 21.0-32.0 [facility] Comment on above: Performed By: #### C MP ####[facility] Bhxqrfeidi3028[address] [place], [place] [address]Dr. Donna Malone Creatinine [Mass/Vol] 0.97 mg/dL Normal 0.70-1.30 [facility] Comment on above: Performed By: #### C MP ####[facility] Pqefoktdss05[address] [place], [place] [address]Dr. Donna Faisal EGFR-AF BURUNDIAN >60 Normal >=60 [facility] Comment on above: Performed By: #### C MP ####[facility] Euedlqzxwx8[address] [place], [place] [address]Dr. Rubyyavn Faisal EGFR-NON AF BURUNDIAN >60 Normal >=60 [facility] Comment on above: Performed By: #### C MP ####[facility] Fhctmxicou1057 [place] [address]Dr. Donna Malone Globulin (S) [Mass/Vol] 3.7 g/dL Normal [facility] Comment on above: Performed By: #### C MP ####[facility] Iacshmwyuw2235 [place] [address]Dr. Donna Malone Glucose [Mass/Vol] 98 mg/dL Normal 74-106 [facility] Comment on above: Performed By: #### C MP ####[facility] Clpzdlmacw5063 [place] [address]Dr. Donna Malone Potassium [Moles/Vol] 3.5 mmol/L Normal 3.5-5.1 [facility] Comment on above: Performed By: #### C MP ####[facility] Gqwbsnrngd14[address] [place], [place] [address]Dr. Donna Malone Protein [Mass/Vol] 6.7 g/dL Normal 6.4-8.2 [facility] Comment on above: Performed By: #### C MP ####[facility] Azeqkrgkgz6359[address] [place], [place] [address]Dr. Donna Malone Sodium [Moles/Vol] 139 mmol/L Normal 136-145 [facility] Comment on above: Performed By: #### C MP ####[facility] Khfxmvrlhz85[address] [place], [place] [address]Dr. Donna Malone Urea nitrogen [Mass/Vol] 11.0 mg/dL Normal 7.0-18.0 [facility] Comment on above: Performed By: #### C MP ####[facility] Tcyirleosx99[address] [place], [place] [address]Dr. Donna Malone Urea nitrogen/Creatinine [Mass ratio] 11.3 mg/mg Normal [facility] Comment on above: Performed By: #### C MP ####[facility] Oiiggnrpgo[address] [place], [place] [address]Dr. Donna Malone T3, TOTAL (TRIIODOTHYRONINE) on 05-16-2022 T3, TOTAL 86 ng/dL Normal 71-180 [facility] Comment on above: Performed By: #### T 3TOTAL ####[facility] Fgeijqelpo[address] [place], [place] [address]Dr. Donna Malone T4 LABCORPon 05-16-2022 T4 [Mass/Vol] 6.4 ug/dL Normal 4.5-12.0 [facility] Comment on above: Performed By: #### T 4LC ####[facility] Mjdrklytia18[address] [place], [place] [address]Dr. Donna Malone CBC AUTO DIFFon 05-15-2022 BASO # 0.0 103/ul Normal 0.0-0.1 [facility] Comment on above: Performed By: #### C BC ####[facility] Pzqdpddosc[address] [place], [place] [address]Dr. Donna Malone Basophils/100 WBC (Bld) 0.3 % Normal 0.2-2.0 [facility] Comment on above: Performed By: #### C BC ####[facility] Piqofmwrgj[address] [place], [place] [address]Dr. Donna Malone EO # 0.2 103/ul Normal 0.0-0.7 [facility] Comment on above: Performed By: #### C BC ####[facility] Dencuspruu64[address] [place], [place] [address]Dr. Donna Malone Eosinophils/100 WBC (Bld) 2.0 % Normal 0.9-7.0 [facility] Comment on above: Performed By: #### C BC ####[facility] [address]hjtrpzowy[address] [place], [place] [address]Dr. Donna Malone Erythrocyte distribution width (RBC) [Ratio] 14.6 % Normal 11.0-15.0 [facility] Comment on above: Performed By: #### C BC ####[facility] Bjiirfxrqa[address] [place], [place] [address]Dr. Donna Malone Hematocrit (Bld) [Volume fraction] 38.2 % Critically low 42.0-54.0 [facility] Comment on above: Performed By: #### C BC ####[facility] Ohbuqpqlul7978 [place] [address]Dr. Donna Malone Hemoglobin (Bld) [Mass/Vol] 12.7 g/dL Critically low 14.0-18.0 [facility] Comment on above: Performed By: #### C BC ####[facility] Jkvgszaysw0266 [place] [address]Dr. Donna Malone IG # 0.04 10e3/ul Critically high 0.00-0.03 [facility] Comment on above: Performed By: #### C BC ####[facility] Ywvucfsaul3584 [place] [address]Dr. Donna Malone IG % 0.4 % Normal 0.0-0.5 [facility] Comment on above: Performed By: #### C BC ####[facility] [address]axjfzxhgc2[address] [place], [place] [address]Dr. Donna Malone LYMPH # 1.4 103/ul Normal 1.2-3.8 [facility] Comment on above: Performed By: #### C BC ####[facility] Dxzjoaadle[address] [place], [place] [address]Dr. Donna Malone Lymphocytes/100 WBC (Bld) 14.9 % Critically low 20.5-60.0 [facility] Comment on above: Performed By: #### C BC ####[facility] Trhudorsxr[address] [place], [place] [address]Dr. Donna Malone MANUAL DIFF REQ NO Normal [facility] Comment on above: Performed By: #### C BC ####[facility] Hwnssijzqy[address] [place], [place] [address]Dr. Donna Malone MCH (RBC) [Entitic mass] 30.0 pg Normal 25.9-34.0 [facility] Comment on above: Performed By: #### C BC ####[facility] Sxqhudwmpy[address] [place], [place] [address]Dr. Donna Malone MCHC (RBC) [Mass/Vol] 33.2 g/dL Normal 29.9-35.2 [facility] Comment on above: Performed By: #### C BC ####[facility] Evyocaepvx9340 [place] [id number]. Donna Malone MCV (RBC) [Entitic vol] 90.3 fL Normal 80.0-94.0 [facility] Comment on above: Performed By: #### C BC ####[facility] Wbudsdzjet6783 [place] [id number]. Donna Malone MONO # 0.8 103/ul Normal 0.3-0.8 [facility] Comment on above: Performed By: #### C BC ####[facility] Kuppnxvsic3618 [place] [id number]. Donna Malone Monocytes/100 WBC (Bld) 8.5 % Normal 1.7-12.0 [facility] Comment on above: Performed By: #### C BC ####[facility] Somhytefuw9964 [place] [id number]. Donna Malone NEUT # 6.8 103/ul Critically high 1.4-6.5 [facility] Comment on above: Performed By: #### C BC ####[facility] Dzskjjfodq8263 [place] [address]Dr. Donna Malone Neutrophils/100 WBC (Bld) 73.9 % Normal 43.0-75.0 [facility] Comment on above: Performed By: #### C BC ####[facility] [address] [place] [id number]. Donna Malone Platelet mean volume (Bld) [Entitic vol] 12.0 fL Normal 9.5-13.5 [facility] Comment on above: Performed By: #### C BC ####[facility] Woxcbwssek[address] [place] [id number]. Donna Malone PLT 154 103/ul Normal 150-450 [facility] Comment on above: Performed By: #### C BC ####[facility] Tkpzjhcysf[address] [place] [id number]. Donna Malone RBC 4.23 106/ul Critically low 4.70-6.10 [facility] Comment on above: Performed By: #### C BC ####[facility] Xsotttnema[address] [place] [address]Dr. Donna Malone WBC 9.2 103/ul Normal 4.0-11.0 [facility] Comment on above: Performed By: #### C BC ####[facility] Pbqvjuuteu[address] [place], [place] [address]Dr. Donna Malone PROF 14(COMP METB)on 022 Albumin [Mass/Vol] 2.9 g/dL Critically low 3.4-5.0 [facility] Comment on above: Performed By: #### C MP ####[facility] Jvoftfbfmb[address] [place], [place] [address]Dr. Donna Malone Albumin/Globulin [Mass ratio] 0.9 {ratio} Normal [facility] Comment on above: Performed By: #### C MP ####[facility] Dykeidvdms[address] [place], [place] [address]Dr. Donna Malone ALP [Catalytic activity/Vol] 41 U/L Critically low 46-116 [facility] Comment on above: Performed By: #### C MP ####[facility] Ymfaihaqwb6[address] [place], [place] [address]Dr. Donna Malone ALT [Catalytic activity/Vol] 12 U/L Critically low 16-63 [facility] Comment on above: Performed By: #### C MP ####[facility] Kppwckjoks[address] [place], [place] [address]Dr. Donna Malone Anion gap [Moles/Vol] 5.6 mmol/L Normal [facility] Comment on above: Performed By: #### C MP ####[facility] Ktchjokesu[address] [place], [place] [address]Dr. Donna Malone AST [Catalytic activity/Vol] 8 U/L Critically low 15-37 [facility] Comment on above: Performed By: #### C MP ####[facility] Epoqnxdnqh09[address] [place], [place] [address]Dr. Donna Malone Bilirubin [Mass/Vol] 0.5 mg/dL Normal 0.2-1.0 [facility] Comment on above: Performed By: #### C MP ####[facility] Tvqmbjktvz[address] [place] [address]Dr. Donna Malone Calcium [Mass/Vol] 8.3 mg/dL Critically low 8.5-10.1 [facility] Comment on above: Performed By: #### C MP ####[facility] Dzqsofpknr[address] [place] [address]Dr. Donna Malone Chloride [Moles/Vol] 106 mmol/L Normal 98-107 [facility] Comment on above: Performed By: #### C MP ####[facility] Mdxwnwtlfi6[address] [place], [place] [address]Dr. Donna Malone CO2 [Moles/Vol] 23.1 mmol/L Normal 21.0-32.0 [facility] Comment on above: Performed By: #### C MP ####[facility] Gyczixslmc[address] [place], [place] [address]Dr. Donna Malone Creatinine [Mass/Vol] 0.82 mg/dL Normal 0.70-1.30 [facility] Comment on above: Performed By: #### C MP ####[facility] Mulirzsaga[address] [place], [place] [address]Dr. Donna Malone EGFR-AF BURUNDIAN >60 Normal >=60 [facility] Comment on above: Performed By: #### C MP ####[facility] Uhdhioyare9066[address] [place], [place] [address]Dr. Donna Malone EGFR-NON AF BURUNDIAN >60 Normal >=60 [facility] Comment on above: Performed By: #### C MP ####[facility] Acnyutgwtd26[address] [place], [place] [address]Dr. Donna Malone Globulin (S) [Mass/Vol] 3.2 g/dL Normal [facility] Comment on above: Performed By: #### C MP ####[facility] Pccnnmifaz[address] [place], [place] [address]Dr. Donna Faisal Glucose [Mass/Vol] 81 mg/dL Normal 74-106 [facility] Comment on above: Performed By: #### C MP ####[facility] Ruxbcxszff8558[address] [place], [place] [address]Dr. Donna Malone Potassium [Moles/Vol] 3.7 mmol/L Normal 3.5-5.1 [facility] Comment on above: Performed By: #### C MP ####[facility] Yghbjwxchx4984[address] [place], [place] [address]Dr. Donna Malone Protein [Mass/Vol] 6.1 g/dL Critically low 6.4-8.2 [facility] Comment on above: Performed By: #### C MP ####[facility] Pqgztccurs340[address] [place], [place] [address]Dr. Donna Malone Sodium [Moles/Vol] 131 mmol/L Critically low 136-145 [facility] Comment on above: Performed By: #### C MP ####[facility] Pnkxzgtlxj0724[address] [place], [place] [address]Dr. Donna Malone Urea nitrogen [Mass/Vol] 17.0 mg/dL Normal 7.0-18.0 [facility] Comment on above: Performed By: #### C MP ####[facility] Crfoarpkgw3946[address] [place], [place] [address]Dr. Donna Malone Urea nitrogen/Creatinine [Mass ratio] 20.7 mg/mg Normal [facility] Comment on above: Performed By: #### C MP ####[facility] Osnfiawlme[address] [place], [place] [address]Dr. Donna Malone CBC AUTO DIFFon 05-14-2022 BASO # 0.1 103/ul Normal 0.0-0.1 [facility] Comment on above: Performed By: #### C BC ####[facility] Zqghufuawu98[address] [place], [place] [address]Dr. Donna Malone Basophils/100 WBC (Bld) 0.8 % Normal 0.2-2.0 [facility] Comment on above: Performed By: #### C BC ####[facility] Boqiackemy9832[address] [place], [place] [address]Dr. Donna Malone EO # 0.3 103/ul Normal 0.0-0.7 [facility] Comment on above: Performed By: #### C BC ####[facility] Nqgasfmgxp9[address] [place], [place] [address]Dr. Donna Malone Eosinophils/100 WBC (Bld) 4.2 % Normal 0.9-7.0 [facility] Comment on above: Performed By: #### C BC ####[facility] Cxmsxdmagp6[address] [place] [address]Dr. Donna Malone Erythrocyte distribution width (RBC) [Ratio] 14.7 % Normal 11.0-15.0 [facility] Comment on above: Performed By: #### C BC ####[facility] Ouncmyxrvr[address] [place], [place] [address]Dr. Donna Malone Hematocrit (Bld) [Volume fraction] 36.5 % Critically low 42.0-54.0 [facility] Comment on above: Performed By: #### C BC ####[facility] Domrupgyaw[address] [place], [place] [address]Dr. Donna Malone Hemoglobin (Bld) [Mass/Vol] 11.9 g/dL Critically low 14.0-18.0 [facility] Comment on above: Performed By: #### C BC ####[facility] Vlweoyrtac[address] [place], [place] [address]Dr. Donna Malone IG # 0.01 10e3/ul Normal 0.00-0.03 [facility] Comment on above: Performed By: #### C BC ####[facility] Fegljhpnah7[address] [place], [place] [address]Dr. Donna Malone IG % 0.2 % Normal 0.0-0.5 [facility] Comment on above: Performed By: #### C BC ####[facility] Isykqyyrbs[address]76[address] [place], [place] [address]Dr. Donna Malone LYMPH # 2.1 103/ul Normal 1.2-3.8 [facility] Comment on above: Performed By: #### C BC ####[facility] Msbhepeupu7498[address] [place], [place] [address]Dr. Donna Malone Lymphocytes/100 WBC (Bld) 32.1 % Normal 20.5-60.0 [facility] Comment on above: Performed By: #### C BC ####[facility] Fabptovwgi[address] [place], [place] [id number]. Donna Malone MANUAL DIFF REQ NO Normal [facility] Comment on above: Performed By: #### C BC ####[facility] Fjzrdoywva[address] [place] [address]Dr. Donna Faisal MCH (RBC) [Entitic mass] 29.7 pg Normal 25.9-34.0 [facility] Comment on above: Performed By: #### C BC ####[facility] Ehuqycofic99[address] [place], [place] [address]Dr. Donna Faisal MCHC (RBC) [Mass/Vol] 32.6 g/dL Normal 29.9-35.2 [facility] Comment on above: Performed By: #### C BC ####[facility] Savgslikdr1585[address] [place], [place] [address]Dr. Donna Malone MCV (RBC) [Entitic vol] 91.0 fL Normal 80.0-94.0 [facility] Comment on above: Performed By: #### C BC ####[facility] Ciyauolqpl[address] [place], [place] [address]Dr. Donna Malone MONO # 0.5 103/ul Normal 0.3-0.8 [facility] Comment on above: Performed By: #### C BC ####[facility] Uthzljxmrz7[address] [place], [place] [address]Dr. Donna Malone Monocytes/100 WBC (Bld) 8.1 % Normal 1.7-12.0 [facility] Comment on above: Performed By: #### C BC ####[facility] Dnowuikjoj[address] [place], [place] [address]DrElizabeth Malone NEUT # 3.5 103/ul Normal 1.4-6.5 [facility] Comment on above: Performed By: #### C BC ####[facility] Rtdcyvjspc9817[address] [place], [place] [address]DrElizabeth Malone Neutrophils/100 WBC (Bld) 54.6 % Normal 43.0-75.0 [facility] Comment on above: Performed By: #### C BC ####[facility] Etysvzwtgc[address]66[address] [place], [place] [address]Dr. Donna Malone Platelet mean volume (Bld) [Entitic vol] 12.0 fL Normal 9.5-13.5 [facility] Comment on above: Performed By: #### C BC ####[facility] Qmpcivslru[address] [place] [address]Dr. oDnna Malone PLT 152 103/ul Normal 150-450 [facility] Comment on above: Performed By: #### C BC ####[facility] Ygbarzrldp[address] [place] [address]Dr. Donna Malone RBC 4.01 106/ul Critically low 4.70-6.10 [facility] Comment on above: Performed By: #### C BC ####[facility] Gswfjtoyck70[address] [place], [place] [address]Dr. Donna Malone WBC 6.4 103/ul Normal 4.0-11.0 [facility] Comment on above: Performed By: #### C BC ####[facility] Sdeldqzuai5[address] [place], [place] [address]Dr. Donna Faisal DEPAKENE/VALPROICon 05-14-20 22 DEPAKENE 17.3 ug/ml Critically low 50.0-100.0 [facility] Comment on above: Performed By: #### V ALP ####[facility] Zmvozxicbr[address] [place], [place] [address]Dr. Donna Malone POINT OF CARE GLUCOSEon Glucose [Mass/Vol] 89 mg/dL Normal 74-106 [facility] Comment on above: Performed By: #### P OCGLUC ####[facility] Gozztackbc[address] [place] [address]Dr. Donna Malone PROF CHEM 8 (BAS METB)on Anion gap [Moles/Vol] 13.6 mmol/L Normal [facility] Comment on above: Performed By: #### B MP ####[facility] Uwjxrjksei56[address] [place], [place] [address]Dr. Donna Faisal Calcium [Mass/Vol] 7.8 mg/dL Critically low 8.5-10.1 [facility] Comment on above: Performed By: #### B MP ####[facility] Zdhlalwyhd[address] [place] [address]Dr. Donna Malone Chloride [Moles/Vol] 112 mmol/L Critically high 98-107 [facility] Comment on above: Performed By: #### B MP ####[facility] Xiaulbpnsd14[address] [place] [address]Dr. Donna Malone CO2 [Moles/Vol] 22.5 mmol/L Normal 21.0-32.0 [facility] Comment on above: Performed By: #### B MP ####[facility] Eawxxthdxf[address] [place], [place] [address]Dr. Donna Malone Creatinine [Mass/Vol] 1.01 mg/dL Normal 0.70-1.30 [facility] Comment on above: Performed By: #### B MP ####[facility] Rifgqevjqx[address] [place], [place] [address]Dr. Donna Malone EGFR-AF BURUNDIAN >60 Normal >=60 [facility] Comment on above: Performed By: #### B MP ####[facility] Zdypgwhcid[address] [place], [place] [address]Dr. Donna Malone EGFR-NON AF BURUNDIAN >60 Normal >=60 [facility] Comment on above: Performed By: #### B MP ####[facility] Zodhyjgakt[address] [place], [place] [address]Dr. Donna Malone Glucose [Mass/Vol] 84 mg/dL Normal 74-106 [facility] Comment on above: Performed By: #### B MP ####[facility] Yeltpazkto08[address] [place], [place] [address]Dr. Donna Malone Potassium [Moles/Vol] 4.1 mmol/L Normal 3.5-5.1 [facility] Comment on above: Performed By: #### B MP ####[facility] Wxcdlkuttn6427[address] [place], [place] [address]Dr. Rubyyvan Malone Sodium [Moles/Vol] 144 mmol/L Normal 136-145 [facility] Comment on above: Performed By: #### B MP ####[facility] K[address]drpatrd[address] [place] [address]Dr. Donna Malone Urea nitrogen [Mass/Vol] 21.0 mg/dL Critically high 7.0-18.0 [facility] Comment on above: Performed By: #### B MP ####[facility] Vyppiynicn[address] [place], [place] [address]Dr. Donna Malone Urea nitrogen/Creatinine [Mass ratio] 20.8 mg/mg Normal [facility] Comment on above: Performed By: #### B MP ####[facility] Cnidllthws[address] [place], [place] [address]Dr. Donna Malone TSHon 05-14-2022 TSH 1.086 uIU/mL Normal 0.358-3.74 0 [facility] Comment on above: Performed By: #### T SH ####[facility] Yaiuukubxl3274[address] [place], [place] [address]Dr. Donna Malone BLOOD GASES BTYon 05-13-2022 02 MODE ROOM AIR Normal [facility] Comment on above: Performed By: #### A BG ####[facility] Lemwbcbkel5[address] [place], [place] [address]Dr. Donna Malone ALLENS TEST Positive [facility] Comment on above: Performed By: #### A BG ####[facility] Ddnrermvqf[address] [place], [place] [address]Dr. Donna Malone Base excess Calc (Bld) [Moles/Vol] -2.5000 mmol/L Critically low -2.0-2.0 [facility] Comment on above: Performed By: #### A BG ####[facility] Dolxyspubg5744[address] [place], [place] [address]Dr. Donna Malone BIPAP PRESSURE Normal [facility] Comment on above: Performed By: #### A BG ####[facility] Bhwqobpoyd8061[address] [place], [place] [address]Dr. Donna Malone CPAP [facility] Comment on above: Performed By: #### A BG ####[facility] Sogxzoacet35[address] [place], [place] [address]Dr. Donna Malone FIO2 Normal [facility] Comment on above: Performed By: #### A BG ####[facility] Uztfqxbhbk[address] [place] [address]Dr. Donna Malone HCO3 (Bld) [Moles/Vol] 22.4 mmol/L Normal 22.0-26.0 [facility] Comment on above: Performed By: #### A BG ####[facility] Oeioyjxofp8[address] [place] [address]Dr. Donna Malone LPM [facility] Comment on above: Performed By: #### A BG ####[facility] Nufzqrgxru8[address] [place], [place] [address]Dr. Donna Malone MINUTE VOLUME Normal [facility] Comment on above: Performed By: #### A BG ####[facility] Motgtftocx8804[address] [place], [place] [address]Dr. Donna Malone Oxygen (Bld) [Partial pressure] 77.6 mm[Hg] Critically low 80.0-100.0 [facility] Comment on above: Performed By: #### A BG ####[facility] Ljeoaejzur1872[address] [place], [place] [address]Dr. Donna Malone Oxygen saturation in Blood 95.5 % Normal 95.0-100.0 [facility] Comment on above: Performed By: #### A BG ####[facility] Nbsynxpqik02[address] [place], [place] [address]Dr. Donna Malone PCO2 40.8 mmHg Normal 35.0-45.0 [facility] Comment on above: Performed By: #### A BG ####[facility] Onorrokrlc[address] [place], [place] [address]Dr. Donna Malone PEEP [facility] Comment on above: Performed By: #### A BG ####[facility] Erjedjsrak[address] [place], [place] [address]Dr. Donna Malone pH (Bld) 7.359 [pH] Normal 7.350-7.45 0 [facility] Comment on above: Performed By: #### A BG ####[facility] Tqrdmfychn[address] [place], [place] [address]Dr. Donna Malone PIP [facility] Comment on above: Performed By: #### A BG ####[facility] Ttcxcayzsp[address] [place] [address]Dr. Donna Malone PS [facility] Comment on above: Performed By: #### A BG ####[facility] Qtqxgnwbjq11[address] [place] [address]Dr. Donna Malone PUNCTURE SITE RR [facility] Comment on above: Performed By: #### A BG ####[facility] Uctmgyyxlg[address] [place] [address]Dr. Donna Malone RATE [facility] Comment on above: Performed By: #### A BG ####[facility] Vbnsrsewya[address] [place] [address]Dr. Donna Malone VENT MODE [facility] Comment on above: Performed By: #### A BG ####[facility] Ktupfrmeci[address] [place], [place] [address]Dr. Donna Malone VT [facility] Comment on above: Performed By: #### A BG ####[facility] V[address]fev[address] [place], [place] [address]Dr. Donna Malone BNPon 05-13-2022 Natriuretic peptide B (Bld) [Mass/Vol] 156.0 pg/mL Normal <=900.0 [facility] Comment on above: Performed By: #### C MP, CMADM, BNP ####[facility] Ihfxdipizl[address] [place] [address]Dr. Donna Malone CARDIAC MJ ADMITon 022 CK [Catalytic activity/Vol] 119 U/L Normal 39-308 [facility] Comment on above: Performed By: #### C MP, CMADM, BNP ####[facility] Aywxmuaajb[address] [place] [address]Dr. Donna Malone CK.MB [Mass/Vol] 1.27 ng/mL Normal <=3.60 [facility] Comment on above: Performed By: #### C MP, CMADM, BNP ####[facility] Xmrblfvloq7[address] [place] [address]Dr. Donna Malone HSTROP 7.9 pg/mL Normal 4.0-76.1 [facility] Comment on above: Result Comment: CUT- OFF POINTS HAVE BEEN ESTABLISHED BASED ON THE FOURTH UNIVERSAL DEFINITIONS OF MYOCARDIALINFARCTION. THE UPPER REFERENCE LIMIT (URL) OF TROPONIN, DEFINED THE 99TH PERCENTILE OFcTnI DISTRIBUTION IN A REFERENCE POPULATION, HAS BEEN CONFIRMED THE DECISION THRESHOLDFOR GA DIAGNOSIS. Performed By: #### C MP, CMADM, BNP ####[facility] Jxmvmopddr[address] [place] [address]Dr. Donna Malone BINDU 111 ng/mL Critically high 16-96 [facility] Comment on above: Performed By: #### C MP, CMADM, BNP ####[facility] Axhvmofddo5[address] [place] [address]Dr. Donna Malone CBC AUTO DIFFon 05-13-2022 BASO # 0.1 103/ul Normal 0.0-0.1 [facility] Comment on above: Performed By: #### C BC ####[facility] Nbokjupdor[address] [place], [place] [address]Dr. Donan Malone Basophils/100 WBC (Bld) 0.8 % Normal 0.2-2.0 [facility] Comment on above: Performed By: #### C BC ####[facility] Ctbmtczbmx[address] [place], [place] [address]Dr. Donna Malone EO # 0.1 103/ul Normal 0.0-0.7 [facility] Comment on above: Performed By: #### C BC ####[facility] Rvbrkhxtvt6786[address] [place], [place] [address]Dr. Donna Malone Eosinophils/100 WBC (Bld) 1.8 % Normal 0.9-7.0 [facility] Comment on above: Performed By: #### C BC ####[facility] Xutdryxllj3747[address] [place], [place] [address]Dr. Donna Malone Erythrocyte distribution width (RBC) [Ratio] 14.7 % Normal 11.0-15.0 [facility] Comment on above: Performed By: #### C BC ####[facility] Nlovxrukqt9258[address] [place], [place] [address]Dr. Donna Malone Hematocrit (Bld) [Volume fraction] 38.2 % Critically low 42.0-54.0 [facility] Comment on above: Performed By: #### C BC ####[facility] Jdrhfnbqbr12[address] [place] [address]DrElizabeth Donna Malone Hemoglobin (Bld) [Mass/Vol] 12.7 g/dL Critically low 14.0-18.0 [facility] Comment on above: Performed By: #### C BC ####[facility] Zmlpphkzhe[address] [place], [place] [address]DrElizabeth Donna Malone IG # 0.03 10e3/ul Normal 0.00-0.03 [facility] Comment on above: Performed By: #### C BC ####[facility] Nqcdjhebgb[address] [place], [place] [address]DrElizabeth Donna Malone IG % 0.4 % Normal 0.0-0.5 [facility] Comment on above: Performed By: #### C BC ####[facility] Bvvvfqesqf62[address] [place], [place] [address]DrElizabeth Donna Malone LYMPH # 1.6 103/ul Normal 1.2-3.8 [facility] Comment on above: Performed By: #### C BC ####[facility] Vaknpmkhdk[address] [place], [place] [address]DrElizabeth Donna Malone Lymphocytes/100 WBC (Bld) 22.8 % Normal 20.5-60.0 [facility] Comment on above: Performed By: #### C BC ####[facility] Dimamfkkbw[address] [place], [place] [address]DrElizabeth Donna Malone MANUAL DIFF REQ NO Normal [facility] Comment on above: Performed By: #### C BC ####[facility] Ypjostglzx[address] [place], [place] [address]DrElizabeth Donna Malone MCH (RBC) [Entitic mass] 30.2 pg Normal 25.9-34.0 [facility] Comment on above: Performed By: #### C BC ####[facility] Rhrerkrnui3133[address] [place], [place] [address]DrElizabeth Rubyyvan Malone MCHC (RBC) [Mass/Vol] 33.2 g/dL Normal 29.9-35.2 [facility] Comment on above: Performed By: #### C BC ####[facility] Gvzldunudw67[address] [place] [address]DrElizabeth Donna Faisal MCV (RBC) [Entitic vol] 91.0 fL Normal 80.0-94.0 [facility] Comment on above: Performed By: #### C BC ####[facility] Jwxqvfofhu[address] [place], [place] [address]DrElizabeth Malone MONO # 0.7 103/ul Normal 0.3-0.8 [facility] Comment on above: Performed By: #### C BC ####[facility] Harhrrtydp[address] [place], [place] [address]DrElizabeth Malone Monocytes/100 WBC (Bld) 9.1 % Normal 1.7-12.0 [facility] Comment on above: Performed By: #### C BC ####[facility] Apwkbkjlmh[address] [place], [place] [address]DrElizabeth Malone NEUT # 4.7 103/ul Normal 1.4-6.5 [facility] Comment on above: Performed By: #### C BC ####[facility] Mqwbrziuqu02[address] [place], [place] [address]DrElizabeth Malone Neutrophils/100 WBC (Bld) 65.1 % Normal 43.0-75.0 [facility] Comment on above: Performed By: #### C BC ####[facility] Aaaqbssflm[address] [place], [place] [address]DrElizabeth Malone Platelet mean volume (Bld) [Entitic vol] 11.8 fL Normal 9.5-13.5 [facility] Comment on above: Performed By: #### C BC ####[facility] Zzesahhslt[address] [place], [place] [address]DrElizabeth Malone PLT 179 103/ul Normal 150-450 [facility] Comment on above: Performed By: #### C BC ####[facility] Tnfonbhwlt[address] [place], [place] [address]DrElizabeth Malone RBC 4.20 106/ul Critically low 4.70-6.10 [facility] Comment on above: Performed By: #### C BC ####[facility] Tzwuyxbrij[address] [place], [place] [address]TnElizabeth Donna Malone WBC 7.2 103/ul Normal 4.0-11.0 [facility] Comment on above: Performed By: #### C BC ####[facility] Iqrjzzjefh4248 [place], [place] [address]Jf. Donna Faisal CT STROKE HEAD WOon 05-13-[address] STROKE HEAD WO Normal [facility] Covid-19 PCR (CVDTB)on SARS-CoV-2 (COVID-19) RNA JOSÉ MIGUEL+probe Ql (Unsp spec) Not detected Normal NOT DETECTED [facility] Comment on above: Result Comment: When diagnostic [...] for this test is supported by the [place] of Health and Human Service's declaration that [...] be used). Performed By: #### C VDTBH ####[facility] [address] [place], [place] [address]YkElizabeth Malone DEPAKENE/VALPROICon 05-13-20 22 DEPAKENE 16.9 ug/ml Critically low 50.0-100.0 [facility] Comment on above: Performed By: #### V ALP ####[facility] [address] [place], [place] [address]IcElizabeth Malone DRUG SCREEN RAPID (URINE)on 05-13-2022 AMP Negative Normal NEGATIVE [facility] Comment on above: Performed By: #### D RUGRPD ####[facility] [address] [place] [address]Dr. Donna Malone BAR Negative Normal NEGATIVE [facility] Comment on above: Performed By: #### D RUGRPD ####[facility] T[address]keutcoj[address] [place] [address]Dr. Donna Malone BUP Negative Normal NEGATIVE [facility] Comment on above: Performed By: #### D RUGRPD ####[facility] [address] [place], [place] [address]Dr. Donna Malone BZO Positive Abnormal NEGATIVE [facility] Comment on above: Performed By: #### D RUGRPD ####[facility] Vukrfugx[address] [place], [place] [address]Dr. Donna Malone EVONNE Positive Abnormal NEGATIVE [facility] Comment on above: Performed By: #### D RUGRPD ####[facility] Eqlyfobtaw[address] [place], [place] [address]Dr. Donna Malone CUT-OFFS SEE BELOW Normal [facility] Comment on above: Result Comment: AMP (Amphetamine): 500ng/mL, BAR (Barbituates): 200 ng/mL, BZO (Benzodiazepines): 150 ng/mL, BUP (Buprenorphine): 10 ng/mL, EVONNE (Cocaine): 150 ng/mL, mAMP (Methamphetamine): 500 ng/mL, MTD (Methadone): 200 ng/mL, OPI (Opiates): 100 ng/mL, OXY (Oxycodone): 100 ng/mL, PCP (Phencyclidine): 25 ng/mL, PPX (Propoxyphene): 300 ng/mL, THC (Cannabinoids): 50 ng/mL, TCA (Trycyclic Antidepressants): 300 ng/mL Performed By: #### D RUGRPD ####[facility] [address]kt[address] [place] [address]Dr. Donna Malone DRUG CUT HEADER DRUG CLASS TEST SYST EM CUT-OFF CONCENTRATIONS ARE FOLLOWS: Normal [facility] Comment on above: Performed By: #### D RUGRPD ####[facility] [address] [place] [id number]. Donna Malone mAMP Negative Normal NEGATIVE [facility] Comment on above: Performed By: #### D RUGRPD ####[facility] [address] [place] [address]Dr. Donna Malone MTD Negative Normal NEGATIVE [facility] Comment on above: Performed By: #### D RUGRPD ####[facility] Epknrbfqux[address] [place] [address]Dr. Donna Malone OPI Positive Abnormal NEGATIVE [facility] Comment on above: Performed By: #### D RUGRPD ####[facility] [address]xi[address] [place] [address]Dr. Donna Malone OXY Negative Normal NEGATIVE [facility] Comment on above: Performed By: #### D RUGRPD ####[facility] [address]frx[address] [place] [address]Dr. Donna Faisal PCP Negative Normal NEGATIVE [facility] Comment on above: Performed By: #### D RUGRPD ####[facility] [address] [place] [address]Dr. Donna Malone PPX Negative Normal NEGATIVE [facility] Comment on above: Performed By: #### D RUGRPD ####[facility] [address] [place] [address]Dr. Donna Malone TCA Positive Abnormal NEGATIVE [facility] Comment on above: Performed By: #### D RUGRPD ####[facility] [address] [place] [address]Dr. Donna Malone THC Negative Normal NEGATIVE [facility] Comment on above: Performed By: #### D RUGRPD ####[facility] Mov[address] [place] [address]Dr. Donna Faisal ER URINE PROFILEon 2 Bilirubin Ql (U) MODERATE Abnormal NEGATIVE [facility] Comment on above: Performed By: #### E RUR ####[facility] [address] [place], [place] [address]Dr. Donna Malone Clarity (U) SL CLOUDY Abnormal CLEAR [facility] Comment on above: Performed By: #### E RUR ####[facility] Lvj[address] [place], [place] [address]Dr. Donna Malone Color (U) DK. YELLOW Normal YELLOW [facility] Comment on above: Performed By: #### E RUR ####[facility] Offillwyus[address] [place], [place] [address]Dr. Donna Malone ERUAHD A micrscopic examina tion will be performed if indicated. Normal [facility] Comment on above: Performed By: #### E RUR ####[facility] Maobzibywr[address] [place], [place] [address]Dr. Donna Malone Glucose Ql (U) 250 mg/dl Abnormal NEGATIVE [facility] Comment on above: Performed By: #### E RUR ####[facility] K[address]qnwvrxr[address] [place], [place] [address]Dr. Donna Malone Hemoglobin Ql (U) Negative Normal NEGATIVE [facility] Comment on above: Performed By: #### E RUR ####[facility] Ublwidffhu[address] [place], [place] [address]Dr. Donna Malone Ketones Ql (U) TRACE Abnormal NEGATIVE [facility] Comment on above: Performed By: #### E RUR ####[facility] M[address]uebveyw[address] [place], [place] [address]Dr. Donna Malone LEUKOCYTES Negative Normal NEGATIVE [facility] Comment on above: Performed By: #### E RUR ####[facility] Nxnujqcxzx[address] [place], [place] [address]Dr. Donna Malone Nitrite Ql (U) Negative Normal NEGATIVE [facility] Comment on above: Performed By: #### E RUR ####[facility] [address] [place], [place] [address]Dr. Donna Malone pH (U) 5.5 [pH] Normal 5-9 [facility] Comment on above: Performed By: #### E RUR ####[facility] [address]oh[address] [place], [place] [address]Dr. Donna Malone SPEC GRAVITY >=1.030 Abnormal 1.005-<=1. 025 [facility] Comment on above: Performed By: #### E RUR ####[facility] [address] [place] [address]Dr. Donna Malone UA PROTEIN TRACE Normal NEGATIVE/ TRACE [facility] Comment on above: Performed By: #### E RUR ####[facility] [address]go[address] [place], [place] [address]Dr. Donna Malone UR MICRO IND NOT INDICATED Normal [facility] Comment on above: Performed By: #### E RUR ####[facility] [address] [place], [place] [address]Dr. Donna Malone Urobilinogen Qn (U) 1.0 {Jermain'U}/dL Normal 0.2 - 1. 0 [facility] Comment on above: Performed By: #### E RUR ####[facility] [address]dvjoubxaf[address] [place], [place] [address]Dr. Donna Malone ETHANOL (BLD ALC)on 05-13-20 ALC NOTE NOTE: 80 mg/dl is th e legal limit for a blood alcohol level Normal [facility] Comment on above: Performed By: #### E TH ####[facility] [address]edtv[address]wq[address] [place], [place] [address]Dr. Donna Malone Ethanol [Mass/Vol] mg/dL Normal [facility] Comment on above: Performed By: #### E TH ####[facility] [address]uvfaejqiy[address] [place], [place] [address]DrElizabeth Malone LACTATE/LACTIC ACIDon 2021 Lactate [Moles/Vol] 1.7 mmol/L Normal 0.4-1.9 [facility] Comment on above: Performed By: #### L ACT ####[facility] [address]kw[address] [place], [place] [address]DrElizabeth Malone POINT OF CARE GLUCOSEon Glucose [Mass/Vol] 99 mg/dL Normal 74-106 [facility] Comment on above: Performed By: #### P OCGLUC ####[facility] Tumhxmv[address] [place], [place] [address]DrElizabeth Malone PROF 14(COMP METB)on 022 Albumin [Mass/Vol] 3.1 g/dL Critically low 3.4-5.0 [facility] Comment on above: Performed By: #### C MP, CMADM, BNP ####[facility] [address]fs[address] [place] [address]Dr. Donna Malone Albumin/Globulin [Mass ratio] 1.0 {ratio} Normal [facility] Comment on above: Performed By: #### C MP, CMADM, BNP ####[facility] Hn[address] [place], [place] [address]Dr. Donna Malone ALP [Catalytic activity/Vol] 37 U/L Critically low 46-116 [facility] Comment on above: Performed By: #### C MP, CMADM, BNP ####[facility] Crijggbyql[address] [place], [place] [address]Dr. Donna Malone ALT [Catalytic activity/Vol] 14 U/L Critically low 16-63 [facility] Comment on above: Performed By: #### C MP, CMADM, BNP ####[facility] [address]bdsktq[address] [place], [place] [address]Dr. Donna Malone Anion gap [Moles/Vol] 12.3 mmol/L Normal [facility] Comment on above: Performed By: #### C MP, CMADM, BNP ####[facility] [address] [place], [place] [address]Dr. Donna Malone AST [Catalytic activity/Vol] 12 U/L Critically low 15-37 [facility] Comment on above: Performed By: #### C MP, CMADM, BNP ####[facility] [address]plvwawtw[address] [place], [place] [address]Dr. Donna Malone Bilirubin [Mass/Vol] 0.4 mg/dL Normal 0.2-1.0 [facility] Comment on above: Performed By: #### C MP, CMADM, BNP ####[facility] Inzvuesaf[address] [place], [place] [address]Dr. Donna Malone Calcium [Mass/Vol] 7.8 mg/dL Critically low 8.5-10.1 [facility] Comment on above: Performed By: #### C MP, CMADM, BNP ####[facility] [address] [place] [address]Dr. Donna Malone Chloride [Moles/Vol] 108 mmol/L Critically high 98-107 [facility] Comment on above: Performed By: #### C MP, CMADM, BNP ####[facility] Iwt[address]zowmd[address] [place] [address]Dr. Donna Malone CO2 [Moles/Vol] 24.8 mmol/L Normal 21.0-32.0 [facility] Comment on above: Performed By: #### C MP, CMADM, BNP ####[facility] Edzp[address]ux[address] [place], [place] [address]Dr. Donna Malone Creatinine [Mass/Vol] 1.83 mg/dL Critically high 0.70-1.30 [facility] Comment on above: Performed By: #### C MP, CMADM, BNP ####[facility] [address] [place], [place] [address]Dr. Donna Malone EGFR-AF BURUNDIAN 45 mL/min/1.73m2 Critically low >=60 [facility] Comment on above: Performed By: #### C MP, CMADM, BNP ####[facility] Ab[address] [place], [place] [address]Dr. Donna Malone EGFR-NON AF BURUNDIAN 37 mL/min/1.73m2 Critically low >=60 [facility] Comment on above: Performed By: #### C MP, CMADM, BNP ####[facility] [address] [place], [place] [address]Dr. Donna Malone Globulin (S) [Mass/Vol] 3.2 g/dL Normal [facility] Comment on above: Performed By: #### C MP, CMADM, BNP ####[facility] [address]exv[address] [place], [place] [address]Dr. Donna Malone Glucose [Mass/Vol] 202 mg/dL Critically high 74-106 [facility] Comment on above: Performed By: #### C MP, CMADM, BNP ####[facility] [address]sp[address] [place] [address]Dr. Donna Malone Potassium [Moles/Vol] 4.1 mmol/L Normal 3.5-5.1 [facility] Comment on above: Performed By: #### C MP, CMADM, BNP ####[facility] [address] [place] [address]Dr. Donna Malone Protein [Mass/Vol] 6.3 g/dL Critically low 6.4-8.2 [facility] Comment on above: Performed By: #### C MP, CMADM, BNP ####[facility] [address] [place] [address]Dr. Donna Malone Sodium [Moles/Vol] 141 mmol/L Normal 136-145 [facility] Comment on above: Performed By: #### C MP, CMADM, BNP ####[facility] [address] [place] [address]Dr. Donna Malone Urea nitrogen [Mass/Vol] 32.0 mg/dL Critically high 7.0-18.0 [facility] Comment on above: Performed By: #### C MP, CMADM, BNP ####[facility] [address]qeur[address] [place] [address]Dr. Donna Malone Urea nitrogen/Creatinine [Mass ratio] 17.5 mg/mg Normal [facility] Comment on above: Performed By: #### C MP, CMADM, BNP ####[facility] [address] [place] [address]Dr. Donna Malone PROTIMEon 05-13-2022 INR Coag (PPP) [Relative time] 1.04 {INR} Normal [facility] Comment on above: Performed By: #### P T, PTT ####[facility] [address] [place] [address]Dr. Donna Malone INR GUIDELINES SEE BELOW Normal [facility] Comment on above: Result Comment: FLORESITA RED INR: 2.0 - 3.0 CONDITIONS NOT LISTED BELOW 2.5 - 3.5 FOR PROSTHETIC HEART VALVE REPLACEMENT 2.5 - 3.5 RECURRENT THROMBOSIS Performed By: #### P T, PTT ####[facility] Xx[address] [place], [place] [address]Bf. Donna Malone PT Coag (PPP) [Time] 11.2 s Normal 9.0-11.6 [facility] Comment on above: Performed By: #### P T, PTT ####[facility] [address] [place], [place] [address]Xm. Donna Malone PTTon 05-13-2022 aPTT Coag (Bld) [Time] 27.5 s Normal 22.3-36.2 [facility] Comment on above: Performed By: #### P T, PTT ####[facility] [address] [place], [place] [address]Aw. Donna Malone XR CHEST 1 Von 05-13-2022 XR CHEST 1 V Normal [facility] Ambulatory Visit Summaryon 0 10-03-2021 Ambulatory Visit [...] physician if questions or concerns acetaminophen acetaminophen-hydrocodone (Mercer 5/325 Tab) amlodipine (amLODIPine 5 mg Tab) [...] [facility] [address] [place] [address]- Medications What How Much When Instructions New ciprofloxacin (Cipro 500 mg Tab) 1 Tablets By Mouth Every day Take 1 tablet the day before the procedure and 1 tablet after the procedure Pickup at [facility] Unchanged acetaminophen 650 Milligram Every 4 hours Contact prescribing physician if questions or concerns Unchanged acetaminophen-hydrocodone (Mercer 5/ 325 Tab) 1 Tablets By Mouth [...] physician if questions or concerns Pharmacy Information [facility]: [address], [place] [id number] [phone] (more content not included)... Normal [facility] Ambulatory Visit Summary TAYLOR MCCLELLAN SR :1955 [...] physician if questions or concerns acetaminophen acetaminophen-hydrocodone (Mercer 5/325 Tab) amlodipine (amLODIPine 5 mg Tab) [...] [facility] [address], [place] [address]- Medications What How Much When Instructions New ciprofloxacin (Cipro 500 mg Tab) 1 Tablets By Mouth Every day Take 1 tablet the day before the procedure and 1 tablet after the procedure Pickup at [facility] Unchanged acetaminophen 650 Milligram Every 4 hours Contact prescribing physician if questions or concerns Unchanged acetaminophen-hydrocodone (Mercer 5/ 325 Tab) 1 Tablets By Mouth [...] physician if questions or concerns Pharmacy Information [facility]: [address] [place], [place] [id number] [phone] (more content not included)... Normal [facility] Skilled Nursing Recordson 10-03 Skilled Nursing Records [id number]:127 Normal [facility] Patient Educationon 10-03-19 Patient Education Urology Benign [...] Follow these instructions at home: ? Take fmxb-yzs-rjfpnyf and prescription medicines only as told by [...] You d (more content not included)... Normal [facility] Urology Office/Clinic Noteon 10-03-2021 Urology Office/Clinic Note Chief Complaint This is a 66 year old male in the [place] ER on 09/14/21. This patient has a [...] UroLift 10/30/18. Pt. was seen in the [facility] ER on 09/14/21 due to generalized [...] recently. Family was in the hospital at [place] where he had severe weakness. A Galindo [...] last seen in 2019. Patient was in [facility] 09/14/21 due to weakness and acute kidney [...] dribbling) moderate, (more content not included)... Normal [facility] Comment on above: Result Comment: Elec tronically Signed By: Sharad Grossman MD, Lisandro Espinal\.br\Date and Time Signed: 10/03/21 12:37 EST\.br\Electronically Co-Signed By: Lisandra Arias\.br\Date and Time Co-Signed: 10/03/21 12:32 EST APTTon 10-13-2019 aPTT Coag (Bld) [Time] 34.9 s Normal 25.0-35.0 Th e [facility] Comment on above: Result Comment: ALL RESULTS [...] THIS PURPOSE. Performed By: #### 5 6101, [address] #### [address] CREATININE BLOODon 0 Creatinine [Mass/Vol] 1.07 mg/dL Normal 0.70-1.30 [facility] Comment on above: Performed By: #### 2 5656 #### [place] [address], [facility] Creatinine [Mass/Vol] mg/dL Normal >60 [facility] Comment on above: Performed By: #### 2 5656 #### [place] [address], [facility] CT LUMBAR SPINE W CONTRASTon 10-13-2019 CT LUMBAR SPINE W CONTRAST [facility] Department of Radiology [address] [place] [id number] Patient Name: TAYLOR MCCLELLAN : 1955 Sex: M Age: Race: White Pt. Location: 84 Patient Status: O Ordered Date: 09/11/2019 2:50:00 PM Completed Date: 10/13/2019 11:37 AM Requesting Provider: JASEN HOWARD Attending Provider: JASEN HOWARD Report Copy To: LUI BRYSON Signs & Symptoms: M51.36 Other intervertebral disc degeneration, lumbar region I10 History: Yaritza Need Saturday appointment call [facility] [phone] [facility] auth# [id number] 09/16/19-10/15/19 cpt code 75981 *mla Comments: Exam: CT LUMBAR SPINE W [...] achievable Electronically signed: Fredy Salmeron. Transcribed by: [email or web address], User Resident: Electronically Signed by: FREDY SALMERON @ 10/13/2019 02:08 PM Normal [facility] LUMBAR MYELOGRAMon 0 LUMBAR MYELOGRAM [facility] Department of Radiology [address] [place] [id number] Patient Name: TAYLOR MCCLELLAN : 1955 Sex: M Age: Race: White Pt. Location: Patient Status: O Ordered Date: 09/11/2019 2:50:00 PM Completed Date: 10/13/2019 10:49 AM Requesting Provider: JASEN HOWARD Attending Provider: JASEN HOWARD Report Copy To: LUI BRYSON Signs & Symptoms: M51.36 Other intervertebral disc degeneration, lumbar region I10 History: Yaritza Need Saturday appointment Patient will need labs, [...] risks are acceptable. Consent was obtained. Timeout: Moffat protocol timeout verification performed. PROCEDURE: Estimated blood [...] reports Electronically signed: Fredy Salmeron. Transcribed by: [email or web address], User Resident: KRISTINE BALLARD Electronically Signed by: FREDY SALMERON @ 10/13/2019 06:58 PM I personally read this/these film(s) with this resident Normal [facility] Comment on above: Order Comment: , , = ========= , Ordering Provider - JASEN HOWARD MD , PROTHROMBIN TIMEon 0 INR Coag (PPP) [Relative time] 1.05 {INR} Normal 0.91-1.16 [facility] Comment on above: Result Comment: ACCC P [...] CHEST 1995;[id number]. Performed By: #### 5 6101, [address] #### [address] [place] [address], [facility] PT Coag (PPP) [Time] 13.7 s Normal 12.3-14.8 [facility] Comment on above: Result Comment: ALL RESULTS MUST BE INTERPRETED WITH RESPECT TO BLOOD DRAWING ARTIFACT OR DILUTION ERROR OF ANTICOAGULANT AT THE TIME OF SAMPLING. Performed By: #### 5 6101, [address] #### [facility] [address] [place] [address], [facility] Laboratory Studieson 019 HBV surface Ab Ql (S) Non reactive [facility] Work Phone: Comment on above: Non Reactive: Incons istent with immunity, less than 10 mIU/mL Reactive: Consistent with immunity, greater than 9.9 mIU/mL HBV surface Ag IA Ql Negative [facility] Work Phone: Comment on above: Performed at: [address] [id number] Framing Carpenter: Arnold Cabral PhD, Phone: [phone] HCV Ab Signal/Cutoff IA RelACnc 0.1 s/co ratio [facility] Work Phone: Hepatitis C Antibody Comment See comment [facility] Work Phone: Comment on above: Non reactive HCV ant ibody screen is consistent with no HCV infection, unless recent infection is suspected or other evidence exists to indicate HCV infection. HIV 1+2 Ab IA Ql Nonreactive [facility] Work Phone: Laboratory Studieson 018 Glucose mass conc Glu2: cleaned meter [facility] Work Phone: Glucose mass conc 121 mg/dL [facility] Work Phone: Comment on above: Random Glucose Refer ence Range is dependent on time and content of last meal. Glucose of more than 200 mg/dL in a nonstressed, ambulatory subject supports the diagnosis of Diabetes Mellitus. Calcium mass conc 8.7 mg/dL 8.2-10.2 [facility] Work Phone: Chloride molar conc 102 mmol/L 95-114 [facility] Work Phone: CO2 molar conc 27.5 mmol/L 22.0-30.0 [facility] Work Phone: Creatinine mass conc 1.08 mg/dL 0.64-1.27 [facility] Work Phone: GFR/1.73 sq M predicted among blacks MDRD vol rate/area (S/P/Bld) mL/min/{1.73_m2} [facility] Work Phone: Comment on above: GFR estimated refere nce range: According to KDOQI guidelines, <60 ml/min/1.73m2 is sufficient to diagnose a patient with chronic kidney disease. GFR/1.73 sq M predicted among non-blacks MDRD vol rate/area (S/P/Bld) mL/min/{1.73_m2} [facility] Work Phone: Glucose mass conc 86 mg/dL 70-100 [facility] Work Phone: Comment on above: ADA recommended refe rence range Random Glucose Reference Range is dependent on time and content of last meal. Glucose of more than 200 mg/dL in a nonstressed, ambulatory subject supports the diagnosis of Diabetes Mellitus. Pharmacy Creatinine Clearance (Chem 88.1842 [facility] Work Phone: Potassium molar conc 3.5 mmol/L 3.5-5.1 [facility] Work Phone: Sodium molar conc 139 mmol/L 136-146 [facility] Work Phone: Urea nitrogen mass conc 10 mg/dL 9-23 [facility] Work Phone: Laboratory Studieson 06-05-2 018 Basophils #/vol (Bld) 0.1 10*3/uL 0.0-0.2 [facility] Work Phone: Basophils/100 WBC (Bld) 1.0 % [facility] Work Phone: Eosinophils #/vol (Bld) 0.2 10*3/uL 0.0-0.45 [facility] Work Phone: Eosinophils/100 WBC (Bld) 2.8 % [facility] Work Phone: Erythrocyte distribution width Ratio (RBC) 13.9 % 12.0-14.8 [facility] Work Phone: Hematocrit Volume Fraction (Bld) 36.3 % Low 38.8-50.0 [facility] Work Phone: Hemoglobin mass conc (Bld) 12.5 g/dL Low 13.0-17.0 [facility] Work Phone: Lymphocytes #/vol (Bld) 1.6 10*3/uL 1.00-4.8 [facility] Work Phone: Lymphocytes/100 WBC (Bld) 23.7 % [facility] Work Phone: MCH Entitic mass (RBC) 28.9 pg 27.5-35.2 [facility] Work Phone: MCHC mass conc (RBC) 34.3 g/dL 32.5-35.6 [facility] Work Phone: MCV Entitic volume (RBC) 84.4 fL 83.5-101 [facility] Work Phone: Monocytes #/vol (Bld) 0.4 10*3/uL 0.0-0.8 [facility] Work Phone: Monocytes/100 WBC (Bld) 6.7 % [facility] Work Phone: Neutrophils #/vol (Bld) 4.4 10*3/uL 1.8-7.7 [facility] Work Phone: Neutrophils/100 WBC (Bld) 65.8 % [facility] Work Phone: Platelet mean volume Entitic volume (Bld) 10.3 fL High 6.6-10.1 [facility] Work Phone: Platelets #/vol (Bld) 199 10*3/uL 150-450 Fi [facility] Work Phone: RBC #/vol (Bld) 4.31 10*6/uL 3.90-5.60 [facility] Work Phone: WBC #/vol (Bld) 6.6 10*3/uL 4.1-10.5 [facility] Work Phone: Laboratory Studieson 018 Appearance Nom (U) Slightly cloudy Abnormal F [facility] [facility] Work Phone: Bacteria Auto Ql (U) None seen [facility] Work Phone: Bilirubin Ql (U) Negative [facility] Work Phone: Color Nom (U) Yellow [facility] Work Phone: Creatinine mass conc (U) 143.4 mg/dL [facility] Work Phone: Comment on above: No reference range e stablished Epithelial cells Auto #/area (Urine sed) Rare /HPF [facility] Work Phone: Glucose Automated test strip mass conc (U) Normal mg/dL [facility] Work Phone: Hemoglobin Automated test strip Ql (U) 1+ High [facility] Work Phone: Ketones mass conc (U) 1+ High [facility] Work Phone: Leukocyte esterase Automated test strip Ql (U) Negative [facility] Work Phone: Nitrite Automated test strip Ql (U) Negative [facility] Work Phone: pH (U) 5.5 [pH] 5.0-9.0 [facility] Work Phone: pH (U) [pH] 1.001-1.03 0 [facility] Work Phone: Protein mass conc (U) Negative [facility] Work Phone: RBC Auto #/area (Urine sed) 1-2 /HPF [facility] Work Phone: Sodium molar conc (U) 144.0 mmol/L F [facility] Work Phone: Comment on above: No reference range e stablished Urate crystals LM.HPF #/area (Urine sed) 3 /[HPF] [facility] Work Phone: Urobilinogen mass conc (U) Normal mg/dL [facility] Work Phone: WBC Auto #/area (Urine sed) None seen /HPF [facility] Work Phone: Albumin mass conc 2.7 g/dL Low 3.2-5.5 [facility] Work Phone: Albumin/Globulin mass ratio 0.8 {ratio} [facility] Work Phone: ALP enzyme act/vol 39 U/L 32-92 [place] Work Phone: ALT No additional P-5'-P enzyme act/vol 14 U/L 10-60 [facility] Work Phone: AST enzyme act/vol 25 U/L 10-42 [place] Work Phone: Bilirubin mass conc 0.6 mg/dL 0.3-1.2 [facility] Work Phone: Globulin mass conc (S) 3.6 g/dL Fi [facility] Work Phone: Protein mass conc 6.3 g/dL 6.1-7.9 [facility] Work Phone: Laboratory Studieson 018 T3 free mass conc 3.28 pg/mL 2.50-3.90 [facility] Work Phone: T4 free mass conc 0.95 ng/dL 0.61-1.12 [facility] Work Phone: Amphetamines Ql (U) Negative [facility] Work Phone: Barbiturates Ql (U) Negative [facility] Work Phone: Benzodiazepines Ql (U) Positive High [facility] Work Phone: Cannabinoids Screen Ql (U) Negative [facility] Work Phone: Comment on above: These are unconfirme d results and should not be used for legal purposes. Drug Cut-Off Concentration: AMPH 1000 ng/mL EWA 200 ng/mL JOHN 200 ng/mL COCM 300 ng/mL OP 300 ng/mL PCP 25 ng/mL THC 20 ng/mL Cocaine Ql (U) Negative [facility] Work Phone: Opiates Ql (U) Positive High [facility] Work Phone: Phencyclidine Ql (U) Negative [facility] Work Phone: Ammonia mass conc (Unsp spec) 20 umol/L 11-35 [facility] Work Phone: Bilirubin.direct mass conc 0.2 mg/dL 0.0-0.4 [facility] Work Phone: Bilirubin.indirect mass conc 0.8 mg/dL [facility] Work Phone: Cobalamin (Vitamin B12) mass conc 365 pg/mL 180-914 [facility] Work Phone: Folate mass conc 12.4 ng/mL [facility] Work Phone: Comment on above: Folate reference ran ge: >5.9 ng/ml The WHO technical consultation on folate and vitamin b12 deficiencies has determined that folate concentrations less than 4 ng/ml are considered deficient. Magnesium molar conc (Unsp spec) 1.7 mg/dL 1.6-2.6 [facility] Work Phone: Thyrotropin Qn 0.20 uIU/mL Low 0.45-5.33 [facility] Work Phone: Comment on above: Revised TSH Assay This assay is standardized to the World Health Organization International Standard for human TSH. Please note Reference Intervals have changed. Laboratory Studieson 018 Casts LM Nom (Urine sed) N/A [facility] Work Phone: Epithelial cells.renal LM.HPF #/area (Urine sed) Rare /HPF [facility] Work Phone: Hyaline casts Auto #/vol (U) 20-49 /LPF High [facility] Work Phone: Lactate molar conc (U) 0.9 mmol/L [facility] Work Phone: CK enzyme act/vol 107 U/L 22-269 [facility] Work Phone: Phosphate mass conc 5.0 mg/dL High 2.5-4.6 [facility] Work Phone: Laboratory Studieson 017 Glucose mass conc 122 mg/dL [facility] Work Phone: Comment on above: RANDOM GLUCOSE REFER ENCE RANGE IS DEPENDENT ON TIME AND CONTENT OF LAST MEAL.GLUCOSE OF MORE THAN 200MG/DL IN A NONSTRESSED,AMBULATORY SUBJECT SUPPORTS THE DIAGNOSIS OF DIABETES MELLITUS. Laboratory Studieson 017 Basophils #/vol (Bld) 0.1 10*3/uL 0.0-0.2 [facility] Work Phone: Basophils/100 WBC (Bld) 0.9 % [facility] Work Phone: Calcium mass conc 8.6 mg/dL 8.2-10.2 [facility] Work Phone: Chloride molar conc 109 mmol/L 95-114 [facility] Work Phone: CK enzyme act/vol 355 U/L High 22-269 [facility] Work Phone: CO2 molar conc 19.5 mmol/L Low 22.0-30.0 [facility] Work Phone: Creatinine mass conc 0.99 mg/dL 0.64-1.27 [facility] Work Phone: Eosinophils #/vol (Bld) 0.20 10*3/uL 0.0-0.45 [facility] Work Phone: Eosinophils/100 WBC (Bld) 3.3 % [facility] Work Phone: Erythrocyte distribution width Ratio (RBC) 13.8 % 12.0-14.8 [facility] Work Phone: Estimated GFR (Non- > 60 [facility] Work Phone: GFR/1.73 sq M.predicted MDRD (S/P/Bld) [Vol rate/Area] mL/min/{1.73_m2} [facility] Comment on above: GFR estimated refere nce range: According to KDOQI guidelines, <60 ml/min/1.73m2 is sufficient to diagnose a patient with chronic kidney disease. GFR/1.73 sq M.predicted MDRD vol rate/area mL/min/{1.73_m2} [facility] Work Phone: Comment on above: GFR estimated refere nce range: According to KDOQI guidelines, <60 ml/min/1.73m2 is sufficient to diagnose a patient with chronic kidney disease. Glucose mass conc 94 mg/dL 70-100 [facility] Work Phone: Comment on above: ADA RECOMMENDED REFE RENCE RANGE Hematocrit Volume Fraction (Bld) 41.5 % 38.8-50.0 [facility] Work Phone: Hemoglobin mass conc (Bld) 14.1 g/dL 13.0-17.0 [facility] Work Phone: Lymphocytes #/vol (Bld) 2.6 10*3/uL 1.00-4.8 [facility] Work Phone: Lymphocytes/100 WBC (Bld) 40.3 % [facility] Work Phone: MCH Entitic mass (RBC) 30.4 pg 27.5-35.2 [facility] Work Phone: MCHC mass conc (RBC) 34.1 g/dL 32.5-35.6 [facility] Work Phone: MCV Entitic volume (RBC) 89.2 fL 83.5-101 [facility] Work Phone: Monocytes #/vol (Bld) 0.4 10*3/uL 0.0-0.8 [facility] Work Phone: Monocytes/100 WBC (Bld) 6.4 % [facility] Work Phone: Neutrophils #/vol (Bld) 3.1 10*3/uL 1.8-7.7 [facility] Work Phone: Neutrophils (%) (Auto) 49.1 % [facility] Work Phone: Neutrophils/100 WBC (Bld) 49.1 % [facility] Platelet mean volume Entitic volume (Bld) 10.7 fL High 6.6-10.1 [facility] Work Phone: Platelets #/vol (Bld) 160 10*3/uL 150-450 [facility] Work Phone: Potassium molar conc 3.4 mmol/L Low 3.5-5.1 [facility] Work Phone: RBC #/vol (Bld) 4.65 10*6/uL 3.90-5.60 [facility] Work Phone: Sodium molar conc 138 mmol/L 136-146 [facility] Work Phone: Urea nitrogen mass conc 7 mg/dL Low 9-23 [facility] Work Phone: WBC #/vol (Bld) 6.4 10*3/uL 4.1-10.5 [facility] Work Phone: Laboratory Studieson 017 Platelet Aggregation (ADP) 57.8 % 0-100 [facility] Work Phone: Comment on above: NO REFERENCE RANGE I S ESTABLISHED OR APPLICABLE Platelet Inhibition ADP 42.2 % 0-100 [facility] Work Phone: Comment on above: NO REFERENCE RANGE I S ESTABLISHED OR APPLICABLE TEG Max Amplitude (Citrated) 69.9 mm 50-70 [facility] Work Phone: TEG Max Amplitude (Rapid) 29.9 0-90 [facility] Work Phone: Comment on above: TEG MA A HAS NO REFE RENCE RANGE Thrombelastograph (TEG) Net G ADP 53.0 MM 0-90 [facility] Work Phone: Comment on above: TEG MA ADP HAS NO RE FERENCE RANGE Albumin mass conc 3.1 g/dL Low 3.2-5.5 [facility] Work Phone: Albumin/Globulin mass ratio 1.0 {ratio} [facility] Work Phone: ALP enzyme act/vol 44 U/L 32-92 [place] Work Phone: ALT enzyme act/vol 18 U/L 10-60 [place] Work Phone: AST enzyme act/vol 27 U/L 10-42 [place] Work Phone: Bilirubin Ql (U) 0.6 mg/dL 0.3-1.2 [facility] Work Phone: Bilirubin.direct mass conc 0.1 mg/dL 0.0-0.4 [facility] Work Phone: Bilirubin.indirect mass conc (Body fld) 0.5 mg/dL [facility] Work Phone: Cholesterol in HDL mass conc 26 mg/dL Low 29-71 [facility] Work Phone: Comment on above: HDL CHOL ATP-III CLA SSIFICATION Cardiovascular Risk HDL > or equal to 60 mg/dL Low HDL < 40 mg/dL High Cholesterol mass conc 150 mg/dL 140-200 [facility] Work Phone: Comment on above: CHOL less than 200 m g/dL Low risk CHOL 201-239 mg/dL Borderline risk CHOL 240 mg/dL and greater High risk Cholesterol mass conc 30 mg/dL [facility] Work Phone: Cholesterol.total/Chol esterol in HDL mass ratio 5.8 {ratio} [facility] Work Phone: Globulin mass conc (S) 3.2 g/dL [facility] Work Phone: LDL Cholesterol, Calculated 93 mg/dL 0-100 [facility] Work Phone: Comment on above: LDL ATP III CLASSIFI CATION LDL less than 100 mg/dL Optimal LDL 100-129 mg/dL Near or above optimal LDL 130-159 mg/dL Borderline high LDL 160-189 mg/dL High LDL greater than 189 mg/dL Very high Protein mass conc 6.3 g/dL 6.1-7.9 [facility] Work Phone: Thyrotropin Qn 1.12 uIU/mL 0.45-5.33 [facility] Work Phone: Comment on above: Revised TSH Assay This assay is standardized to the World Health Organization International Standard for human TSH. Please note Reference Intervals have changed. Triglyceride mass conc 153 mg/dL High 35-149 [facility] Work Phone: Comment on above: TRIG ATP III CLASSIF ICATION TRIG less than 150 mg/dL Normal TRIG 150-199 mg/dL Borderline high TRIG 200-500 mg/dL High TRIG greater than 500 mg/dL Very high Standard traceable to the Center for Disease Conrtrol and Prevention (CDC) test method. Laboratory Studieson 017 Glucose mass conc Glu2: cleaned meter [facility] Work Phone: Ammonia mass conc (P) 19 umol/L 11-35 [facility] Work Phone: Cobalamin (Vitamin B12) mass conc 202 pg/mL 180-914 [facility] Work Phone: Folate 10.7 ng/mL [facility] Work Phone: Comment on above: FOLATE REFERENCE RAN GE: >5.9 ng/mL The WHO Technical Consultation on folate and vitamin B12 deficiencies has determined that folate concentrations less than 4 ng/mL are considered deficient. Amphetamines Ql (U) Negative [facility] Work Phone: Appearance Nom (U) Clear [facility] Work Phone: Bacteria LM.HPF #/area (Urine sed) None seen [facility] Work Phone: Benzodiazepines Ql (U) Positive High [facility] Work Phone: Bilirubin Ql (U) Negative [facility] Work Phone: Cocaine Ql (U) Negative [facility] Work Phone: Color Nom (U) Yellow [facility] Work Phone: Epithelial cells.squamous LM.HPF #/area (Urine sed) 5-9 /hpf High [facility] Work Phone: Glucose mass conc (U) 250 mg/dL High [facility] Work Phone: Hyaline casts LM Ql (Urine sed) 0-8 /lpf [facility] Work Phone: Ketones Ql (U) Trace High [facility] Work Phone: Leukocyte esterase Test strip Ql (U) Negative [facility] Work Phone: Nitrite Ql (U) Negative [facility] Work Phone: Opiates Ql (U) Negative [facility] Work Phone: pH (U) 5.0 [pH] 5.0-9.0 [facility] Work Phone: Phencyclidine Ql (U) Negative [facility] Work Phone: Protein Ql (U) Negative [facility] Work Phone: RBC #/vol (U) 50-100 /hpf High [facility] Work Phone: Specific gravity Relative Density (U) 1.039 High 1.001-1.03 0 [facility] Work Phone: Urine Barbiturates Screen Negative [facility] Work Phone: Urine Collection Type Type [facility] Work Phone: Comment on above: CATHETERIZED Urine Drug Screen Comment See comment [facility] Work Phone: Comment on above: THESE ARE UNCONFIRME D RESULTS AND SHOULD NOT BE USED FOR LEGAL PURPOSES. DRUG CUT-OFF CONCENTRATION: AMPH 1000 ng/mL EWA 200 ng/mL JOHN 200 ng/mL COCM 300 ng/mL OP 300 ng/mL PCP 25 ng/mL THC 20 ng/mL Urine Marijuana (THC) Screen Negative [facility] Work Phone: Urine Occult Blood 3+ High [place] Work Phone: Urine Transitional Epithelial Cells 3-4 /hpf High [facility] Work Phone: Urobilinogen Qn (U) Normal mg/dL [facility] Work Phone: WBC #/vol (U) 0-1 /hpf [facility] Work Phone: Bedside Ionized Calcium (Deepti) 1.22 mmol/L 1.12-1.32 [facility] Work Phone: Bedside Total CO2 23 mmol/L 23-29 [facility] Work Phone: Chloride molar conc 110.0 mmol/L High 98-109 [facility] Work Phone: Creatinine mass conc 1.2 mg/dL 0.6-1.3 [facility] Work Phone: Comment on above: ER/ESD PHYSICIAN IS NOTIFIED/SHOWN ALL ISTAT RESULTS. CRITICAL VALUES MAY BE CONFIRMED BY LABORATORY TESTING IF DEEMED NESCESSARY BY ER ATTENDING DOCTOR Glucose mass conc 135 mg/dL High 70-105 [facility] Work Phone: Hematocrit Volume Fraction (Bld) 48.0 % 38.0-51.0 [facility] Work Phone: Hemoglobin mass conc (Bld) 16.3 g/dL 12.0-17.0 [facility] Work Phone: Potassium molar conc 4.7 mmol/L 3.5-4.9 [facility] Work Phone: Sodium molar conc 144 mmol/L 138-146 [facility] Work Phone: Urea nitrogen mass conc 15 mg/dL 8-26 [facility] Work Phone: Amylase enzyme act/vol 39 U/L 28-100 [facility] Work Phone: CK.MB mass conc 9.5 ng/mL High 0.6-6.3 [facility] Work Phone: Creatine Kinase MB Relative Index 1.5 0.00-2.50 [facility] Work Phone: Ethyl Alcohol Level < 5 mg/dL [facility] Work Phone: Glucose mass conc 140 mg/dL High 70-100 [facility] Work Phone: Comment on above: RANDOM GLUCOSE REFER ENCE RANGE IS DEPENDENT ON TIME AND CONTENT OF LAST MEAL.GLUCOSE OF MORE THAN 200MG/DL IN A NONSTRESSED,AMBULATORY SUBJECT SUPPORTS THE DIAGNOSIS OF DIABETES MELLITUS. Lipase enzyme act/vol 22.0 U/L 22-51 [facility] Work Phone: Percent Ethyl Alcohol < 0.005 % [facility] Work Phone: Troponin I.cardiac mass conc ng/mL 0-0.02 [facility] Work Phone: Comment on above: DAMARIS GA Cut off value > or equal to 0.03 ng/mL in conjunction with clinical conditions of myocardial infarction. (www.escardio.org/guidelines) Glucose mass conc 134 mg/dL [facility] Work Phone: Hemoglobin A1c/Hemoglobin.total mass fraction (Bld) 6.3 % High 4.3-5.6 [facility] Work Phone: Comment on above: Increased risk for d iabetes: 5.7 - 6.4 Diabetes: >6.4 Glycemic control for adults with diabetes: <7.0 Vital Signs Date Time Vital Sign Value Performing Clinician Facility 11-05-2022 14:30-0500 Diastolic blood pressure 72 mm[Hg] [address] Other [id number] Other 11-05-2022 14:30-0500 SaO2% (BldA) [Mass fraction] 97 % [facility] Other [email or web address] Other 11-05-2022 14:30-0500 Systolic blood pressure 118 mm[Hg] [address] Other [email or web address] Other 10-18-2022 14:00-0500 Body weight 96.[address] Other [email or web address] Other 10-18-2022 14:00-0500 Diastolic blood pressure 64 mm[Hg] [address] Other [email or web address] Other 10-18-2022 14:00-0500 SaO2% (BldA) [Mass fraction] 98 % Benson Domingo Other [email or web address] Other 10-18-2022 14:00-0500 Systolic blood pressure 120 mm[Hg] [facility] [address] Other [id number] Other 07-20-2022 16:00-0500 Body temperature 97.4 [degF] MD Genesis Reynolds Work Phone: [facility] 07-20-2022 16:00-0500 Diastolic blood pressure 72 mm[Hg] MD Genesis Reynolds Work Phone: [facility] 07-20-2022 16:00-0500 Heart rate 61 /min MD Genesis Reynolds Work Phone: [facility] 07-20-2022 16:00-0500 Respiratory rate 16 /min MD Genesis Reynolds Work Phone: [facility] 07-20-2022 16:00-0500 SaO2% (BldA) [Mass fraction] 98 % MD Genesis Reynolds Work Phone: [facility] 07-20-2022 16:00-0500 Systolic blood pressure 159 mm[Hg] MD Genesis Reynolds Work Phone: [facility] 07-20-2022 06:00-0500 Body weight 95.3 kg MD Genesis Reynolds Work Phone: [facility] 07-18-2022 11:22-0500 Body height 177.8 cm MD Genesis Reynolds Work Phone: [facility] 07-17-2022 22:14-0500 Body height 177.8 cm MD Genesis Reynolds Work Phone: [facility] 07-17-2022 22:14-0500 Body temperature 97.5 [degF] MD Genesis Reynolds Work Phone: [facility] 07-17-2022 22:14-0500 Body weight 95.9 kg MD Genesis Reynolds Work Phone: [facility] 07-17-2022 22:14-0500 Diastolic blood pressure 87 mm[Hg] MD Genesis Reynolds Work Phone: [facility] 07-17-2022 22:14-0500 Heart rate 74 /min MD Genesis Reynolds Work Phone: [facility] 07-17-2022 22:14-0500 Respiratory rate 16 /min MD Genesis Reynolds Work Phone: [facility] 07-17-2022 22:14-0500 SaO2% (BldA) [Mass fraction] 99 % MD Genesis Reynolds Work Phone: [facility] 07-17-2022 22:14-0500 Systolic blood pressure 180 mm[Hg] MD Genesis Reynolds Work Phone: [facility] 02-13-2018 14:12-0400 Body Temperature 98 [degF] [facility] 02-13-2018 14:12-0400 BP Diastolic 74 mm[Hg] [facility] 02-13-2018 14:12-0400 BP Systolic 113 mm[Hg] Bro [facility] 02-13-2018 14:12-0400 Pulse Oximetry 95 % [facility] 02-13-2018 14:12-0400 Respiratory Rate 18 /min [facility] 02-11-2018 22:00-0400 Pulse (Heart Rate) 73 /min Bro [facility]UST Body weight Bro Aj [facility] Weight Bro Aj [facility] NEGATED: Highlighted row BMI (Body Mass Index) Bro [facility] NEGATED: Highlighted row BMI (Body Mass Index) [facility]: Highlighted row Height Bro Aj [facility] NEGATED: Highlighted row [facility] Encounters Encounter Date Encounter Type Care Provider Facility Start: 04-26-2023 End: 04-27-2023 ambulatory JUDY HURT [facility] Start: 04-25-2023 End: 04-26-2023 Emergency department patient visit BRO SANFORD [facility] Start: 04-19-2023 ambulatory [place] [place] Abigail acility:[facility] Start: 01-17-2023 End: 01-17-[address] GENESIS REYNOLDS . Facility:[facility] Start: 12-06-2022 End: 12-06-[address] Other [email or web address] Other Start: 12-06-[address] [facility] Start: 11-15-2022 End: 11-17-2022 Evaluation and management of inpatient DR GENESIS REYNOLDS . Facility:[facility] Start: 11-13-2022 End: 11-13-[address] Other [email or web address] Other Start: 11-13-[address] [facility] Start: 11-05-2022 End: 11-05-[address] Other [email or web address] Other Start: 11-05-2022 Office outpatient vi sit [address] [facility] Start: 11-01-2022 End: 11-01-2022 ambulatory Genesis Reynolds Facility:[facility] Start: 11-01-2022 End: 11-01-2022 ambulatory MD Genesis Reynolds Work Phone: [facility] Work Phone: Start: 11-01-2022 End: 11-01-2022 Patient encounter procedure MD Genesis Reynolds Work Phone: [facility] Work Phone: Start: 10-26-2022 End: 10-27-[address] GENESIS REYNOLDS . Facility:[facility] Start: 10-25-2022 (PROC) PROCEDURE [address] Mohit Domo [facility] Start: 10-25-2022 End: 10-26-[address] GENESIS REYNOLDS . [facility] Other Start: 10-18-2022 End: 10-18-[address] Other [facility] Other Start: 10-18-2022 Office outpatient ne w [...] of inpatient MD Genesis Reynolds Work Phone: [facility] [place] [facility] Start: 07-17-2022 End: 07-20-2022 observation encounter MD Genesis Reynolds Work Phone: [facility] Work Phone: Start: 07-15-2022 End: 07-16-[address] GENESIS REYNOLDS . Facility:[facility] Start: 06-21-2022 End: 06-22-[address] GENESIS REYNOLDS . Facility:[facility] Start: 05-13-2022 End: 05-16-2022 Evaluation and management of inpatient DR GENEISS REYNOLDS . Facility:[facility] Start: 05-07-[address] GENESIS REYNOLDS . Facili ty:[facility] Start: 12-17-2019 Preoperative state MD Genesis Reynolds Work Phone: [facility] Start: 12-24-2018 End: 12-24-2018 [facility] Start: 02-08-2018 End: 02-13-2018 Evaluation and management of inpatient [facility] Start: 01-12-2018 End: 01-17-2018 Evaluation and management of inpatient [facility] Start: 04-02-2017 End: 04-05-2017 Evaluation and management of inpatient [facility] Start: 06-09-2006 End: 07-09-2006 Discharged Recurring [facility] Start: 04-09-2006 End: 05-09-2006 [facility] Start: 03-09-2006 End: 04-08-2006 Discharged Recurring Bro [facility] Start: 02-22-2006 End: 03-08-2006 [facility] Start: 02-10-2006 End: 02-14-2006 Evaluation and management of inpatient [facility] Start: 05-10-2000 End: 06-08-2000 Discharged [facility] Start: 04-09-2000 End: 05-09-2000 Discharged Recurring Bro [facility] Start: 03-09-2000 End: 04-08-2000 Discharged Recurring Bro [facility] Start: 02-08-2000 End: 03-08-2000 Discharged Recurring Bro [facility] Start: 01-08-2000 End: 02-07-2000 Discharged Recurring Bro [facility] Start: 12-09-1999 End: 02-07-2000 Discharged Recurring Bro [facility] Start: 11-08-1999 End: 12-08-1999 [facility]charged [facility] Start: 10-10-1999 End: 11-07-1999 [facility]charged [facility] Start: 09-09-1999 End: 10-09-1999 [facility] [facility] Start: 08-09-1999 End: 10-09-1999 [facility] [employer] [facility] Start: 07-10-1999 End: 08-08-1999 [facility]charged [facility] [employer] [facility] Start: 06-26-1999 End: 07-09-1999 [facility]charged [facility] [employer] [employer] [facility] Start: 03-29-1998 End: 03-29-1998 Patient encounter procedure [facility] [employer] [facility] Start: 02-24-1987 End: 02-28-1987 Evaluation and management of inpatient [facility] [employer] [facility] Start: 12-22-1986 End: 12-23-1986 [facility] Procedures Date Procedure Procedure [...] Date Care Activity Detail Author Start: 07-20-2022 [facility] Start: 07-18-2022 Lipid panel [facility] Start: 07-17-2022 Hospital admission [facility] Start: 07-17-2022 Physical therapy procedure [facility] Start: 07-17-2022 Referral to cribber [facility] Start: 07-17-2022 Referral to occupati onal therapist [facility] Start: 07-17-2022 [facility] Start: 07-17-2022 [facility] Bacteria identified in Blood by Culture Blood Culture [facility] Blood culture for ba cteria, including anaerobic screen Blood Culture [facility] Patient referral [facility] Work Phone: [facility] Payers Date Payer Category Payer Self-pay 1958 Medicare [id number] 1959 Unknown [id number] 1955 Unknown [id number] 2.16.84 0.1.900968.3.579.2.593 1956 Unknown [id number] 2.16.84 0.1.252451.3.579.2.593 1956 Unknown [id number] 2.16.84 0.1.253699.3.579.2.593 1956 Unknown [id number] 2.16.84 0.1.411466.3.579.2.593 1956 Unknown [id number] 2.16.84 0.1.401368.3.579.2.593 1956 Unknown [id number] 2.16.84 0.1.272824.3.579.2.593 1956 Unknown [id number] 2.16.84 0.1.755002.3.579.2.593 1956 Unknown [id number] 2.16.84 0.1.351797.3.579.2.593 1956 Unknown [id number] 2.16.84 0.1.924483.3.579.2.593 1956 Unknown [id number] 2.16.84 0.1.039689.3.579.2.593 1956 Unknown [id number] 2.16. 840.1.581972.3.579.2.356 1955 Unknown [id number] 2.16. 840.1.573401.3.579.2.356 1956 Unknown [id number] 2.16. 840.1.267353.3.579.2.356 1956 Unknown [id number] 2.16. 840.1.143217.3.579.2.356 1956 Unknown [id number] 2.16. 840.1.061071.3.579.2.356 1955 Unknown [id number] 2.16. 840.1.046230.3.579.2.356 1955 Unknown [id number] 2.16.8 40.1.110537.3.579.2.173 Unknown [id number] Unknown [facility] [id number] Unknown [id number] 2.16.8 40.1.889367.3.579.2.531 Unknown [id number] 2.16.8 40.1.944254.3.579.2.531 Social History Date Type Detail Facility Start: 07-17-2022 End: 07-18-2022 Tobacco smoking status NHIS Smoker (finding) [facility] Start: 1955 Sex Assigned At Male F [facility] Sex Assigned At Sex Assigned At Bir th [facility] [employer] Other Medical Equipment Procedure Code Equipment Code Equipment Origin al Text Equipment Identifier Dates [id number] Start: 12-24-2018 End: 04-11-2019 Glucose test strips Start : 12-24-2018 End: 04-10-2019 Glucose test strips Start : 12-24-2018 End: 04-10-2019 Glucose test strips Start : 12-24-2018 End: 04-10-2019 Goals Date Patient Goal Desired Activity /State Functional Status Date Assessment Result Facility 07-20-2022 Functional status Patient at Baseline [facility] Work Phone: Mental Status Date Assessment Result Facility 07-20-2022 Cognitive function Cognitive Sta tus Patient at Baseline [facility] Work Phone: Clinical Notes 2018 to 11-05-2022 [...] (ICD-10 - G89.29) Follow up after procedure. ID90T Other 02-09-2023 Evaluation note* Encounter Date Diagnosis [...] cant remember who the surgeon was in [place]. He presents with his today, both the [...] negative findings were considered in medical decision-making. ID90T Other 11-11-2022 Discharge summary Author Sang Bauer [facility] July 20, 2022 6:39pm Note Date/Time July 20, 2022 3:04pm [facility] [address] [place] [address] Discharge Summary Signed Patient: Taylor Mcclellan MR#: [id number] : 1955 Acct:[id number] Age/Sex: 66 / M Adm Date: 2 Loc: Room: [address] [place] [address]: Sang Bauer MD Copies to: [...] affect Discharge Plan Discharge Plan Patient Disposition: [facility] Facility Activity: No Activity Restriction Diet: Low-Sodium [...] tablet 75 mg PO DAILY Discontinued hydrocodone-acetaminophen [Mercer] 5-325 mg tablet 1 tab PO BID PRN (Reason: Pain) Qty: 0 0RF Other Ambulatory Orders: DME Home Medical Equipment (Routine) Timeframe: 20220720 Location: Determined by Patient Ordered By: Sang Bauer Follow Up: Lilia Hopper APRN [Nurse Practitioner] - 08/22/22 10:30 am Documented By: Sang Bauer MD 07/20/22 1504 Signed By: <Electronically signed by Sang Bauer MD> 07/20/22 1839 [facility] Work Phone: 1(561) 840-967211-11-2022 Progress note Author Itzel Adams [facility] July 20, 2022 8:06am Note Date/Time July 20, 2022 8:06am [facility] [address] [place] [address] Cardiology Progress Note Signed Patient: Taylor Mcclellan SR MR#: [id number] : 1955 Acct:[id number] Age/Sex: 66 / M Adm Date: 2 Loc: Room: [address] [place] [address] Type: ADM INOo Attending Dr: Sang Bauer [...] it is a single-vessel bypass done in [place] record is not available patient and his cannot remember which hospital he had his surgery at. He does not follow with cardiology Qualifiers: Coronary Disease-Associated Artery/Lesion type: [place] artery [place] vs. transplanted heart: [place] heart Associated angina: without angina Qualified Code(s): I25.10 - Atherosclerotic heart disease of [place] coronary artery without angina pectoris Code(s): I25.10 - Atherosclerotic heart disease of [place] coronary artery without angina pectoris Status: Acute [...] 3. Stress test negative for ischemia or GA. Patient can be discharged home cardiac chew Documented By: Itzel Adams MD 07/20/22804 Signed By: <Electronically signed by MD Itzel Adams> 07/20/22805 [facility] Work Phone: 1(369) 940-504111-10-2022 Progress note Author Sang [facility] November 10th, 2022 4:57pm Note Date/Time July 19, 2022 4:57pm [facility] [address] [place] [address] Hospitalist Progress Note Signed Patient: Taylor Mcclellan SR MR#: [id number] : 1955 Acct:[id number] Age/Sex: 66 / M Adm Date: 2 Loc: 3T Room: [address] [place] [address] Type: ADM INOo Attending Dr: Sang Bauer [...] Insuln.Pen SUBCUT 07/17/23 21:59 Not Given TID.WM.HS [facility] Protocol Lamotrigine 100 mg 07/18/22 12:00 07/19/22 [...] CODE STATUS full code Documented By: Sang Baure MD 07/19/221653 Signed By: <Electronically signed by Sang Bauer MD> 07/19/221656 [facility] Work Phone: 1(430) 489-130111-10-2022 Progress note Author Itzel Adams [facility] July 19, 2022 8:35am Note Date/Time July 19, 2022 8:35am [facility] [address] [place] [address] Cardiology Progress Note Signed Patient: Taylor Mcclellan MR#: [id number] : 1955 Acct:[id number] Age/Sex: 66 / M Adm Date: 2 Loc: 3T Room: [address] [place] [address] Type: ADM INOo Attending Dr: Sang Bauer [...] with cardiology Qualifiers: Coronary Disease-Associated Artery/Lesion type: [place] artery [place] vs. transplanted heart: [place] heart Associated angina: without angina Qualified Code(s): I25.10 - Atherosclerotic heart disease of [place] coronary artery without angina pectoris Code(s): I25.10 - Atherosclerotic heart disease of [place] coronary artery without angina pectoris Status: Acute [...] <Electronically signed by MD Itzel Adams> 07/19/22834 [facility] Work Phone: 1(626) 677-970111-09-2022 Progress note Author Sang Bauer [facility] July 18, 2022 3:24pm Note Date/Time July 18, 2022 3 :24pm [facility] [address] [place] [address] Hospitalist Progress Note Signed Patient: Taylor Mcclellan MR#: [id number] : 1955 Acct:[id number] Age/Sex: 66 / M Adm Date: 2 Loc: Room: [address] [place] [address] Type: ADM INOo Attending Dr: Sang Bauer [...] Insuln.Pen SUBCUT 07/17/23 21:59 Not Given TID.WM.HS [facility] Protocol Lamotrigine 100 mg 07/18/22 12:00 07/18/22 [...] 11:15 Brexpiprazole [Rexulti] PO 07/18/23 11:14 1XD [facility] Ondansetron HCl 4 mg 07/17/22 18:33 Ondansetron [...] signed by Sang Bauer MD> 07/18/22 1524 [facility] Work Phone: 1([phone] 132-379711-09-2022 History and physical note Author Sang Bauer [facility] July 18, 2022 3:22pm Note Date/Time July 17, 2022 6 :41pm [facility] [address] [place] [address] Hospitalist H&P Signed Patient: Taylor Mcclellan SR MR#: [id number] : 1955 Acct:[id number] Age/Sex: 66 / M Adm Date: 2 Loc: Room: [address] [place] [address] Type: ADM INOo Attending Dr: Sang Bauer [...] at home. Reportedly patient was taken to [facility] couple days ago when he was confused [...] his live in a mobile home in [place]. Meds Medications and Allergies Allergies chlordiazepoxide [From [...] 07/17/22] hydrocodone 5 mg-acetaminophen 325 mg tablet (Mercer) 1 tab PO BID PRN Pain #0 [...] % (Auto) 29.5 % (.) 07/17/22 15:44 Yell % (Auto) 5.4 % (.) 07/17/22 15:44 Eos % (Auto) 0.7 % (.) 07/17/22 15:44 Baso % (Auto) 1.0 % (.) 07/17/22 15:44 Neut # (Auto) 4.9 x10E3/uL (1.8-7.7) 07/17/22 15:44 Lymph # (Auto) 2.3 x10E3/uL (1.00-4.8) 07/17/22 15:44 Yell # (Auto) 0.4 x10E3/uL (0.0-0.8) 07/17/22 15:44 [...] code Documented By: Sang Bauer MD 07/17/22 183 Signed By: <Electronically signed by Sang Bauer MD> 07/18/22 [facility] Work Phone: 1(719) 253-541911-09-2022 Consult note Author Itzel Adams [facility] July 18, 2022 11:46am Note Date/Time July 18, 2022 1 1:43am [facility] [address] [place] [address] Cardiology Consult Note Signed Patient: Taylor Mcclellan SR MR#: [id number] : 1955 Acct:[id number] Age/Sex: 66 / M Adm Date: 2 Loc: Room: [address] [place] [address] Type: ADM INOo Attending Dr: Sang Bauer MD Copies to: MD Genesis Goetz MD Mourhaf A Traboulssi, MD~ Cardiology HPI History of Present Illness Consult Date: 07/18/22 Reason for Consult: Chest pain HPI: Mr. Mcclellan is a 66 year old male with known history of coronary artery disease and prior bypass surgery done in [place]. No records available. Patient report to have [...] his live in a mobile home in [place]. Meds Medications and Allergies Allergies chlordiazepoxide [From [...] 07/17/22] hydrocodone 5 mg-acetaminophen 325 mg tablet (Mercer) 1 tab PO BID PRN Pain #0 [...] x10E3/uL Lymph # (Auto) 2.3 (1.00-4.8) x10E3/uL Yell # (Auto) 0.4 (0.0-0.8) x10E3/uL Eos # [...] @ 100 mls/hr IV ONCE ONE Rx #:[id number] Oral 0 / 0 50 / 50 [...] it is a single-vessel bypass done in [place] record is not available patient and his cannot remember which hospital he had his surgery at. He does not follow with cardiology Qualifiers: Coronary Disease-Associated Artery/Lesion type: [place] artery [place] vs. transplanted heart: [place] heart Associated angina: without angina Qualified Code(s): I25.10 - Atherosclerotic heart disease of [place] coronary artery without angina pectoris Code(s): I25.10 - Atherosclerotic heart disease of [place] coronary artery without angina pectoris (3) Hx [...] signed by MD Itzel Adams> 07/18/22 1146 [facility] Work Phone: 1(636) 675-787111-08-2022 History and physical note Author Sang Bauer [facility] July 18, 2022 3:22pm Note Date/Time July 17, 2022 6 :41pm [facility] [address] [place] [address] Hospitalist H&P Signed Patient: Taylor Mcclellan MR#: [id number] : 1955 Acct:[id number] Age/Sex: 66 / M Adm Date: 2 Loc: Room: [address] [place] [address] Type: ADM INOo Attending Dr: Sang Bauer [...] at home. Reportedly patient was taken to [facility] couple days ago when he was confused [...] his live in a mobile home in [place]. Meds Medications and Allergies Allergies chlordiazepoxide [From [...] 07/17/22] hydrocodone 5 mg-acetaminophen 325 mg tablet (Mercer) 1 tab PO BID PRN Pain #0 [...] % (Auto) 29.5 % (.) 07/17/22 15:44 Yell % (Auto) 5.4 % (.) 07/17/22 15:44 Eos % (Auto) 0.7 % (.) 07/17/22 15:44 Baso % (Auto) 1.0 % (.) 07/17/22 15:44 Neut # (Auto) 4.9 x10E3/uL (1.8-7.7) 07/17/22 15:44 Lymph # (Auto) 2.3 x10E3/uL (1.00-4.8) 07/17/22 15:44 Yell # (Auto) 0.4 x10E3/uL (0.0-0.8) 07/17/22 15:44 [...] code Documented By: Sang Bauer MD 07/17/22 8144 Signed By: <Electronically signed by Sang Bauer MD> 07/18/22 1520 [facility] Work Phone: 1(298) 264-905101-07-2019 Consult note Author Itzel Adams [facility] July 18, 2022 11:46am Note Date/Time July 18, 2022 1 1:43am [facility] [address] [place] [address] Cardiology Consult Note Signed Patient: Taylor Mcclellan MR#: [id number] : 1955 Acct:[id number] Age/Sex: 66 / M Adm Date: 2 Loc: 3T Room: [address] [place] [address] Type: ADM INOo Attending Dr: Sang Bauer MD Copies to: MD [facility] Goetz MD Mourhaf A Traboulssi,MD~ Cardiology HPI History of Present Illness Consult Date: 07/18/22 Reason for Consult: Chest pain HPI: Mr. Mcclellan is a 66 year old male with known history of coronary artery disease and prior bypass surgery done in [place]. No records available. Patient report to have [...] his live in a mobile home in [place]. Meds Medications and Allergies Allergies chlordiazepoxide [From [...] 07/17/22] hydrocodone 5 mg-acetaminophen 325 mg tablet (Mercer) 1 tab PO BID PRN Pain #0 [...] x10E3/uL Lymph # (Auto) 2.3 (1.00-4.8) x10E3/uL Yell # (Auto) 0.4 (0.0-0.8) x10E3/uL Eos # [...] @ 100 mls/hr IV ONCE ONE Rx #:[id number] Oral 0 / 0 50 / 50 [...] it is a single-vessel bypass done in [place] record is not available patient and his cannot remember which hospital he had his surgery at. He does not follow with cardiology Qualifiers: Coronary Disease-Associated Artery/Lesion type: [place] artery [place] vs. transplanted heart: [place] heart Associated angina: without angina Qualified Code(s): I25.10 - Atherosclerotic heart disease of [place] coronary artery without angina pectoris Code(s): I25.10 - Atherosclerotic heart disease of [place] coronary artery without angina pectoris (3) Hx [...] signed by MD Itzel Adams> 07/18/22 1146 [facility] Work Phone: Discharge summary Author Sang Bauer [facility] July 20, 2022 6:39pm Note Date/Time July 20, 2022 3:04pm [facility] [address] [place] [address] Discharge Summary Signed Patient: Taylor Mcclellan MR#: [id number] : 1955 Acct:[id number] Age/Sex: 66 / M Adm Date: 2 Loc: Room: [address] [place] [address]: Sang Bauer MD Copies to: [...] affect Discharge Plan Discharge Plan Patient Disposition: [facility] Facility Activity: No Activity Restriction Diet: Low-Sodium [...] tablet 75 mg PO DAILY Discontinued hydrocodone-acetaminophen [Mercer] 5-325 mg tablet 1 tab PO BID PRN (Reason: Pain) Qty: 0 0RF Other Ambulatory Orders: [facility] Medical Equipment (Routine) Timeframe: 20220720 Location: Determined by Patient Ordered By: Sang Bauer Follow Up: Lilia Hopper APRN [Nurse Practitioner] - 08/22/22 10:30 am Documented By: Sang Bauer MD 07/20/22 1406 Signed By: <Electronically signed by Sang Bauer MD> 07/20/22 5049 [facility] Work Phone: Evaluation note* Diagnosis Onset Date Resolution Status Chest pain acute Coronary artery disease acut e Generalized weakness acute Hx of CABG acute Diabetes mellitus chronic HTN (hypertension) chronic [facility] Work Phone: Evaluation note* Diagnosis Onset Date Resolution Status Bipolar 1 disorder, depressed, severe acute Chest pain acute Coronary artery disease acut e Generalized weakness acute Hx of CABG acute Chronic back pain chronic Diabetes mellitus chronic HTN (hypertension) chronic [facility] Work Phone: Evaluation noteNo assessment information available [facility] Work Phone: [facility] [employer] Other History general Narrative - Reported* Type Description Date Medical History CABG Medical History BPH Medical History HTN Medical History Diabetes Medical History HLD Medical History lumbosacral spondylosis Medical History lumbar neuritis Medical History disorder of sacrum Surgical History previous back surgery Surgical History heart valve replacement Surgical History CABG Hospitalization History see above ID90T Other Hospital Discharge instructions Additional Instructions SNF TO MANAGE: PT/OT to eval and treat Monitor VS per protocol--HTN Monitor FSBS Maintain high risk fall precautions Care [facility] be managed [facility] Work Phone: Progress note Author Sang Bauer [facility] July 18, 2022 3:24pm Note Date/Time July 18, 2022 3 :24pm [facility] [address] [place] [address] Hospitalist Progress Note Signed Patient: Taylor Mcclellan MR#: [id number] : 1955 Acct:[id number] Age/Sex: 66 / M Adm Date: 2 Loc: Room: [address] [place] [address] Type: ADM INOo Attending Dr: Sang Bauer [...] Insuln.Pen SUBCUT 07/17/23 21:59 Not Given TID.WM.HS [facility] Protocol Lamotrigine 100 mg 07/18/22 12:00 07/18/22 [...] 11:15 Brexpiprazole [Rexulti] PO 07/18/23 11:14 1XD [facility] Ondansetron HCl 4 mg 07/17/22 18:33 Ondansetron [...] signed by Sang Bauer MD> 07/18/22 1524 [facility] Work Phone: Progress note Author Itzel Adams [facility] July 19, 2022 8:35am Note Date/Time July 19, 2022 8:35am [facility] [address] [place] [address] Cardiology Progress Note Signed Patient: Taylor Mcclellan MR#: [id number] : 1955 Acct:[id number] Age/Sex: 66 / M Adm Date: 2 Loc: Room: [address] [place] [address] Type: ADM INOo Attending Dr: Sang Bauer [...] it is a single-vessel bypass done in [place] record is not available patient and his cannot remember which hospital he had his surgery at. He does not follow with cardiology Qualifiers: Coronary Disease-Associated Artery/Lesion type: [place] artery [place] vs. transplanted heart: [place] heart Associated angina: without angina Qualified Code(s): I25.10 - Atherosclerotic heart disease of [place] coronary artery without angina pectoris Code(s): I25.10 - Atherosclerotic heart disease of [place] coronary artery without angina pectoris Status: Acute [...] <Electronically signed by MD Itzel Adams> 07/19/22834 [facility] Work Phone: Progress note Author Sang Bauer [facility] July 19, 2022 4:57pm Note Date/Time July 19, 2022 4:57pm [facility] [address] [place] [address] Hospitalist Progress Note Signed Patient: Taylor Mcclellan SR MR#: [id number] : 1955 Acct:[id number] Age/Sex: 66 / M Adm Date: 2 Loc: Room: [address] [place] [address] Type: ADM INOo Attending Dr: Sang Bauer [...] code Documented By: Sang Bauer MD 07/19/22 8449 Signed By: <Electronically signed by Sang Bauer MD> 07/19/22 6981 [facility] Work Phone: Progress note Author Itzel Adams [facility] July 20, 2022 8:06am Note Date/Time July 20, 2022 8:06am [facility] [address] [place] [address] Cardiology Progress Note Signed Patient: Taylor Mcclellan SR MR#: [id number] : 1955 Acct:[id number] Age/Sex: 66 / M Adm Date: 2 Loc: Room: [address] [place] [address] Type: ADM INOo Attending Dr: Sang Bauer [...] it is a single-vessel bypass done in [place] record is not available patient and his cannot remember which hospital he had his surgery at. He does not follow with cardiology Qualifiers: Coronary Disease-Associated Artery/Lesion type: [place] artery [place] vs. transplanted heart: [place] heart Associated angina: without angina Qualified Code(s): I25.10 - Atherosclerotic heart disease of [place] coronary artery without angina pectoris Code(s): I25.10 - Atherosclerotic heart disease of [place] coronary artery without angina pectoris Status: Acute [...] 3. Stress test negative for ischemia or GA. Patient can be discharged home cardiac chew Documented By: Itzel Adams MD 07/20/22 08 Signed By: <Electronically signed by MD Itzel Adams> 07/20/22 08 [facility] Work Phone: Summary Purpose Family [...] section and content) DATE CREATED AUTHOR 10/15/2019 [facility] DATE CREATED AUTHOR AUTHOR'S ORGANIZ ATION 11/29/2021 [facility] DATE CREATED AUTHOR AUTHOR'S ORGANIZ ATION 01/21/2023 [facility] DATE CREATED AUTHOR AUTHOR'S ORGANIZ ATION 01/23/2023 [facility] DATE CREATED AUTHOR AUTHOR'S ORGANIZ ATION 04/30/2023 [facility] DATE CREATED AUTHOR AUTHOR'S ORGANIZ ATION 08/18/2023 [facility] Care Teams (unrecognized sec tion and [...] Ramirez MD Other Provider Active Pily Winslow [facility]- Other Provider Active Adelaide Leonardo MD Other [...] BE BASED ON THE PRIMARY CLINICAL RECORDS. [employer] provides no warranty or guarantee of the accuracy or completeness of information in this document.
[2023-09-18 18:43] VITALS: BP 194/101; PULSE 89; RESP 18; O2SAT 98
--- NOTE | 2023-09-18 19:03 | ED_ITS ---
HPI - Back Pain/Injury General Chief Complaint: Back Pain/Injury Stated Complaint: severe back pain Time Seen by Provider: 09/18/23 18:24 Source: patient Mode of arrival: Wheelchair History of Present Illness HPI Narrative: this patient's here for exacerbation of his back pain and she's had this problem for over 20-25 years. He does not have a new fall or injury. He's not been running a fever. He's not had recent instrumentation. He has no loss of bowel or bladder function. Actually he has good days where he gets out and around with family assistance without using a cane or a walker. His is doing better at home as well. He just saw his primary care doctor last week and was scheduled to have an MRI, but the mistakingly canceled the MRI. He is not on any narcotic analgesics. He was just started on Lyrica proximally one week ago and has had modest improvement so far. His prescription monitoring program does not suggest any narcotic abuse at all. Related Data Home Medications Medication Instructions Recorded Confirmed amitriptyline 50 mg tablet 100 mg PO .qhs 03/14/23 04/19/23 aspirin 81 mg capsule 81 mg PO DAILY 03/14/23 04/19/23 atorvastatin 40 mg tablet 40 mg PO DAILY 03/14/23 04/19/23 brexpiprazole 3 mg tablet (Rexulti) 3 mg PO DAILY 03/14/23 04/19/23 bupropion HCl 150 mg 24 hr tablet, 150 mg PO QDAY 03/14/23 04/19/23 extended release buspirone 10 mg tablet 10 mg PO BID 03/14/23 04/19/23 carvedilol 12.5 mg tablet (Coreg) 12.5 mg PO BID 03/14/23 04/19/23 clopidogrel 75 mg tablet 75 mg PO QDAY 03/14/23 04/19/23 hydralazine 25 mg tablet 25 mg PO Q8H 03/14/23 04/19/23 lamotrigine 100 mg tablet 200 mg PO QDAY 03/14/23 04/19/23 bupropion HCl 300 mg 24 hr tablet, 300 mg PO DAILY 04/19/23 04/19/23 extended release gabapentin 300 mg capsule mg 04/19/23 Previous Rx's Medication Instructions Recorded celecoxib 200 mg capsule 200 mg PO DAILY #30 caps 03/15/23 Allergies Allergy/AdvReac Type Severity Reaction Status Date / Time No Known Drug Allergies Allergy Verified 04/19/23 13:59 [facility]SH [facility] Medical History (Updated 09/18/23 @ 19:06 by Chaitanya Slater MD) CAD (coronary artery disease) ?I25.10 - Atherosclerotic heart disease of [place] coronary artery without angina pectoris (ICD-10) Back pain ?M54.9 - Dorsalgia, unspecified (ICD-10) 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 - Fusion of spine, lumbar region (ICD-10) High cholesterol ?E78.00 - Pure hypercholesterolemia, unspecified (ICD-10) Hypertension ?I10 - Essential (primary) hypertension (ICD-10) IDDM (insulin dependent diabetes mellitus) Restless leg syndrome ?G25.81 - Restless legs syndrome (ICD-10) Suicidal ideation ?R45.851 - Suicidal ideations (ICD-10) Sleep apnea ?G47.30 - Sleep apnea, unspecified (ICD-10) Anxiety ?F41.9 - Anxiety disorder, unspecified (ICD-10) Metabolic encephalopathy ?G93.41 - Metabolic encephalopathy (ICD-10) Depression ?F32.A - Depression, unspecified (ICD-10) Acute renal failure ?N17.9 - Acute kidney failure, unspecified (ICD-10) Altered mental status ?R41.82 - Altered mental status, unspecified (ICD-10) Surgical History (Updated 03/14/23 @ 23:37 by Christiana Hou) S/P CABG (coronary artery bypass graft) ?Z95.1 - Presence of aortocoronary bypass graft (ICD-10) History of heart artery stent ?Z95.5 - Presence of coronary angioplasty implant and graft (ICD-10) Family History (Updated 03/14/23 @ 23:00 by Taniya Mercado) Mother Family history of myocardial infarction Social History (Updated 03/14/23 @ 23:05 by Taniya Mercado) Within the past year, how often did you have a drink containing alcohol: never Score interpretation: A score less than 4 is consistent with normal alcohol consumption. 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 Known occupational exposures/hazards: No Highest level of school completed/degree received: some college, no degree Do you want help with school or training: No Are you now , , , , never or living with a partner: In a typical week, how many times do you talk on the telephone with family, friends, or neighbors: never How often do you get together with friends or relatives: never How often do you attend mormon or evangelical services: never Do you belong to any clubs or organizations such as mormon groups unions, [employer] or athletic groups, or school groups: no Total score: 1 Score interpretation: A score of less than or equal to 1 indicates the most socially isolated. Little interest or pleasure in doing things: nearly every day Feeling down, depressed, or hopeless: several days Feel stressed/tense/nervous/anxious/difficulty sleeping: very much Life stressors: recent of family or friend Life stressor details: mother and step father a year ago Due to disability, difficulty making decisions: No Do you think of yourself as: straight/heterosexual Gender Identity: male Exam Narrative Exam Narrative: awake alert pleasant oriented ?3. Here with his stepson. Skin is warm and dry mucous membranes are moist and pink. Has mild elevation of his blood pressure and that will need to be followed up with his primary care doctor. He says the pain is pretty uncomfortable at this time but he's had this off and on in the seen numerous pain management doctors in the past. He's not actually had a surgery. Examination of his extremities there is good vascular supply with no evidence of tissue ischemia or venous thrombosis. He does have weakness of his right extensor hallucis longus that's quite no ulisses. He and his stepson do not know if this is a new finding or if he's had that previously. He has no weakness of the reflexes are asymmetry at the patella or the Achilles. Constitutional Vital Signs, click to edit/add: Last Vital Signs Temp 97.9 F 09/18/23 17:49 Pulse 89 09/18/23 18:43 Resp 18 09/18/23 18:43 BP 194/101 H 09/18/23 18:43 Pulse Ox 98 09/18/23 18:43 O2 Del Method Room Air 09/18/23 17:49 Course Vital Signs Vital signs: Vital Signs Temperature 97.9 F 09/18/23 17:49 Pulse Rate 94 H 09/18/23 17:49 Respiratory Rate 18 09/18/23 17:49 Blood Pressure 152/90 H 09/18/23 17:49 Pulse Oximetry 97 09/18/23 17:49 Oxygen Delivery Method Room Air 09/18/23 17:49 Temperature 97.9 F 09/18/23 17:49 Pulse Rate 89 09/18/23 18:43 Respiratory Rate 18 09/18/23 18:43 Blood Pressure 194/101 H 09/18/23 18:43 Pulse Oximetry 98 09/18/23 18:43 Oxygen Delivery Method Room Air 09/18/23 17:49 MDM - Back Pain/Injury MDM Narrative Medical decision making narrative: patient is under care of a primary care doctor. He is scheduled to have an MRI which would suggest to me the primary care doctor is aware of the right sided foot drop. This was discussed in detail. I will give him a pain shot here and two days with analgesics to he can follow up with his primary Discharge Plan Discharge Chief Complaint: Back Pain/Injury Clinical Impression: Lumbar radiculopathy, Weakness Patient Disposition: Home, Self-Care Time of Disposition Decision: 19:06 Prescriptions / Home Meds: No Action amitriptyline 50 mg tablet 100 mg PO .qhs Patient Comments: med list taken off bottles and last dose taken from Pt- unsure how reliable clopidogrel 75 mg tablet 75 mg PO QDAY hydralazine 25 mg tablet 25 mg PO Q8H lamotrigine 100 mg tablet 200 mg PO QDAY bupropion HCl 150 mg tablet extended release 24 hr 150 mg PO QDAY Hold Instructions: Doctor's Order Rexulti 3 mg tablet 3 mg PO DAILY carvedilol [Coreg] 12.5 mg tablet 12.5 mg PO BID Rx Instructions: must administer with a meal/food atorvastatin 40 mg tablet 40 mg PO DAILY aspirin 81 mg capsule 81 mg PO DAILY Hold Instructions: pt stopped taking buspirone 10 mg tablet 10 mg PO BID celecoxib 200 mg Capsule 200 mg PO DAILY Qty: 30 11RF bupropion HCl 300 mg tablet extended release 24 hr 300 mg PO DAILY gabapentin 300 mg capsule Hold Instructions: Doctor's Order Additional Instructions: call your doctor tomorrow to be sure and reschedule MRI. [place] in addition to your other medications on a judicious basis Stand Alone Forms: Portal Instructions Referrals: Norbert Jiang MD [Primary Care Provider] - 1 week
[2023-09-18] MEDS: HYDROMORPHONE HCL 2 MG/ML VIAL IM (19:16)
[2023-09-18 19:19] VITALS: BP 179/93; PULSE 82; RESP 18; O2SAT 97
== END 2023-09-18 19:25 | disposition home or self-care (01) ==
PROVIDERS: Emergency Provider Emergency Medicine Emergency Medical Services; PCP Family Medicine
DX: M54.16 Radiculopathy, lumbar region (principal); R53.1 Weakness; I25.10 Atherosclerotic heart disease of native coronary artery without angina pectoris; E78.00 Pure hypercholesterolemia, unspecified; I10 Essential (primary) hypertension; E11.9 Type 2 diabetes mellitus without complications; G25.81 Restless legs syndrome; G47.30 Sleep apnea, unspecified; F32.A Depression, unspecified; Z95.1 Presence of aortocoronary bypass graft; Z95.5 Presence of coronary angioplasty implant and graft; F17.210 Nicotine dependence, cigarettes, uncomplicated; Z79.82 Long term (current) use of aspirin; Z79.899 Other long term (current) drug therapy
CPT/HCPCS: 96372; 99284; J1170

== ENCOUNTER 2023-09-24 10:21 | Outpatient (OUT) | payer MEDICARE, BC, SELFPAY ==
--- NOTE | 2023-09-24 10:29 | MR_ITS ---
The [address] [address] Patient Name: TAYLOR MCCLELLAN MRN: [id number] date: 1955 Sex: M Assigned Patient Location: MRI Current Patient Location: MRI Accession/Order Number: [id number] Exam Date: 09/24/2023 11:00 Report Date: 09/24/2023 13:11 At the request of: GENESIS REYNOLDS Procedure: MR lumbar spine wo con HISTORY: Chronic low back pain. Prior low back surgery. Lumbar radiculopathy. MR lumbar spine wo con: 09/24/2023 11:00 AM EST COMPARISON: MRI lumbar spine 07/05/2020, CT scan lumbar spine 03/14/2023 and radiographs lumbar spine 09/13/2023. TECHNIQUE: Sagittal T1, T2, STIR, axial T1 and axial T2-weighted images of the lumbar spine were obtained. FINDINGS: A mild rotatory dextroconvex scoliosis of the lumbar spine is again seen centered at the L3-L4 level. There are postsurgical changes again seen from prior right hemilaminectomy and medial facetectomy with posterior fusion surgery at the L4-L5 level. There is moderate to severe disc space narrowing with partial osseous fusion again seen across the L4-L5 disc space. Retrolisthesis of L5 on S1 of 3 mm again seen. No compression fracture is identified. There is severe discogenic disease again seen at the L5-S1 level and moderate discogenic disease at the L3-L4 level. There is stable mild discogenic disease at the L1-L2 and L2-L3 level. The bone marrow signal intensity appears age appropriate. The conus medullaris is not studied in detail, but it appears grossly unremarkable. L1-L2 level: No significant disc protrusion, spinal canal stenosis, or foraminal narrowing is seen. Moderate facet joint arthropathy again seen. L2-L3 level: Small bilateral foraminal disc-osteophyte complexes are again seen, but there is no significant right neural narrowing. No central spinal canal stenosis. There is moderate to severe facet joint arthropathy again seen. L3-L4 level: A small posterior disc-osteophyte complex is again seen without significant spinal canal stenosis or foraminal narrowing. There is moderate to severe facet joint arthropathy again seen. L4-L5 level: A small posterior disc-osteophyte complex again appears to be more prominent in the foraminal regions and this again appears to cause moderate right and mild left foraminal narrowing. There is no central spinal canal stenosis. L5-S1 level: There are postsurgical changes again seen from prior right hemilaminectomy and medial facetectomy. There is a similar appearance of a small posterior disc-osteophyte complex and this again appears to cause mild right and moderate left foraminal narrowing. There is no central spinal canal stenosis. There is facet joint arthropathy again seen. No paraspinal fluid collection is seen. There is no MRI evidence of arachnoiditis. MR/MR lumbar spine wo con IMPRESSION: 1. Stable appearance of the lumbar spine when compared to the MRI of 07/05/2020 with a mild rotatory dextroconvex scoliosis, multilevel discogenic disease and facet joint arthropathy without evidence of central spinal canal stenosis. 2. There is stable moderate right and mild left foraminal narrowing at the L4-L5 level and moderate left and mild right foraminal narrowing at the L5-S1 level secondary to disc-osteophyte complexes in these regions. No other significant foraminal narrowing is seen. 3. Stable appearance of postsurgical changes at the L4-L5 and L5-S1 level. Electronically authenticated by: GENESIS BYRD Date: 09/24/2023 13:11
--- OUTSIDE RECORDS SUMMARY | 2023-09-24 10:29 | XMS_ITS | CCD ---
Author Name Unknown Address [address] [place] [address] Organization [facility] Care Team Providers Care Order Packer Or Packager Name Role Phone Bro Sanford Primary Care Physician Unavailab Lior Dow Attending Physician Unavailable MD Genesis Reynolds Primary Care Provider MD Segundo Huston Emergency Provider [phone] MD Sang Bauer Admit Provider MD Jodie Bauerop Attending Provider LEXIE Mckeon Other Provider Unavailable DO Lawrence Lee Other Provider MD Kaden Summers Other Provider MD Edinson Bustamante Other Provider MD Itzel Adams Other Provider MD Ramos Fraga Other Provider LILA Hopper Other Provider MD Cinthia Rae Other Provider MD Ramón Ayala Other Provider MD Flavio Ramirez Other Provider Goldy [facility] Pily Espinal Other Provider MD Adelaide Leonardo Other Provider MD Itzel Adams Referring Provider MD Genesis Reynolds Primary Care Provider MD Benson Lane S Attending Provider Benson Lane Unavailable DR GENESIS VILLANUEVA Admitting Unavailable GAIL ., DR HURTADO Primary Care Unavailable GAIL ., DR HURTADO Attending Unavailable SONYAY ., DR HURTADO Primary Care Unavailable ANA [...] Consulting Unavailable DIAB ., PHILL Consulting Unavailable GAIL ., DR HURTADO Primary Care Unavailable CLAUDE [...] HURTADO Consulting Unavailable GAIL ., DR HURTADO Admitting Unavailable CLARIBEL, DR [...] Unavailable BRO SANFORD Primary Care Unavailabl e NADEREBRO Kim Primary Care Unavailabl e GREENEANTHONY MEJIA Attending Unavailable Genesis Reynolds Primary Care Unavailable Domingo, Benson S Admitting Unavailable Domingo, Benson S Attending Unavailable [place] Admitting Unavailab le [place]ilo [place] Attending Unavailab le Genesis Reynolds Primary Care Unavailable Allergies Allergy Classification Reported Allergen(s) Allergy Type Date of Onset Reaction(s) Facility (4 sources) Amitriptyline; Translations: [Amitriptyline] Drug Allergy 01-24-20 19 Unknown Reaction [facility] (12 sources) atorvastatin; Translations: [atorvastatin] Drug Allergy 01-24-20 Unknown Reaction, Unknown [facility] (6 sources) chlordiazePOXIDE; Translations: [chlordiazepoxide] Drug Allergy 01-24-20 Unknown Reaction [facility] (6 sources) clidinium; Translations: [clidinium] Drug Allergy 01-24-20 Unknown Reaction [facility] (13 sources) fentaNYL; Translations: [Fentanyl] Drug Allergy 01-24-20 Unknown Reaction, Unknown [facility] (6 sources) venlafaxine; Translations: [venlafaxine] Drug Allergy 01-24-20 Unknown Reaction [facility] (2 sources) Citalopram; Translations: [Citalopram] Drug Allergy 07-17-20 Unknown Reaction [facility] (4 sources) Simvastatin; Translations: [simvastatin] Drug Allergy 07-17-20 Unknown Reaction [facility] (5 sources) Succinylcholine; Translations: [Succinylcholine] Drug Allergy 09-09-19 05 Unknown Reaction [facility] (7 sources) Amitriptyline; Translations: [Elavil] Drug Allergy 04-20-20 14 Unknown [facility] (6 sources) chlordiazePOXIDE / clidinium Drug Allergy Unknown [employer] Other (7 sources) venlafaxine; Translations: [Effexor] Drug Allergy 04-06-20 14 Unknown [facility] (1 source) buPROPion Drug Allergy [facility] (1 source) Citalopram Drug Allergy 12-31-19 20 [facility] (1 source) mirabegron Drug Allergy [facility] (1 source) Simvastatin Drug Allergy [facility] (1 source) tiZANidine Drug Allergy [facility] Medications Current Medications Medication Drug [...] tablet by mouth twice daily Hydrocodone-Aceta minophen (Pacifica) 5-325 mg tablet Discontinued 1 TAB PO [...] 01-24-2019 End: 01-24-2019 Lorazepam January 24, 2019 Discvelma ntinued Start: 01-24-2019 End: 01-24-2019 Lorazepam Discontinued [...] Coronary arteriosclerosis; Translations: [Atherosclerotic heart disease of [place] coronary artery without angina pectoris] Onset: 01-21-2023 [...] 07-17-2022 Episodic Other aftercare (1 source) 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; Translations: [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] Onset: 01-21-2023 Episodic Other aftercare (1 source) [facility] (current) use of antithrombotics/antip latelets; Translations: [CUSTODIAL 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/ANTIPLAT LETS] Onset: 12-20-2022 Episodic Other circulatory [...] Onset: 08-08-2022 Episodic Other aftercare (1 source) [facility] (current) use of aspirin; Translations: [CUSTODIAL CURRENT USE OF ASPIRIN] Onset: 07-20-2022 Episodic [...] Name Value Interpretation Reference Range Facility Cult, [facility] 04-30-2023 Cult, Blood Specimen Description .BLOOD Special Requests lhand, 9ml, 2 bottles Culture NO GROWTH 5 DAYS Report Status FINAL 04/30/2023 [facility] Comment on above: Performed By: #### B CUL2 #### [facility] [address] [place] [address] [employer]: Sarai Howell MD Cult,Bloodon 04-30-2023 Cult,Blood Specimen Description .BLOOD Special Requests LAC, 20ML Culture NO GROWTH 5 DAYS Report Status FINAL 04/30/2023 [facility] Comment on above: Performed By: #### B C #### [facility] [address] [place] [place] [address] [employer]: Sarai Howell MD Lipid Profileon 04-26-2023 Cholesterol [Mass/Vol] 171 mg/dL Normal <200 [facility] Comment on above: Result Comment: Cholesterol Guidelines: <200 Desirable 200-240 Borderline >240 Undesirable Performed By: #### L IPR #### [address] [address] [employer]: Spencer Tapia MD Cholesterol in HDL [Mass/Vol] 30 mg/dL Low >40 [facility] Comment on above: Result Comment: HDL Guidelines: <40 Undesirable 40-59 Borderline >59 Desirable Performed By: #### L IPR #### [address] [address] [employer]: Spencer Tapia MD Cholesterol in LDL [Mass/Vol] 112 mg/dL Normal 0-130 [facility] Comment on above: Result Comment: LDL Guidelines: <100 Desirable 100-129 Near to/above Desirable 130-159 Borderline >159 Undesirable Direct (measured) LDL and calculated LDL are not interchangeable tests. Performed By: #### L IPR #### [address] [address] [employer]: Spencer Tapia MD Cholesterol.total/Chol esterol in HDL [Mass ratio] 5.7 {ratio} High <5 [facility] Comment on above: Performed By: #### L IPR #### [address] [address] [employer]: Spencer Tapia MD Triglyceride [Mass/Vol] 143 mg/dL Normal <150 [facility] Comment on above: Result Comment: Triglyceride Guidelines: <150 Desirable 150-199 Borderline 200-499 High >499 Very high Based on AHA Guidelines for fasting triglyceride, June 2012. Performed By: #### L IPR #### [address] [address] [employer]: Spencer Tapia MD Basic Metabolic Profon 04-25 Anion gap [Moles/Vol] 13 mmol/L Normal 9-17 [facility] Comment on above: Performed By: #### T ANJALI AYALA, BMP #### [facility] [address] [place], [place] [id number] [employer]: Sarai Howell MD BUN/CRE Ratio 14 Normal 9-20 [facility] Comment on above: Performed By: #### ANJALI PRADHAN, BMP #### [facility] [address] [place], [place] [id number] [employer]: Sarai Howell MD Calcium [Mass/Vol] 9.3 mg/dL Normal 8.6-10.4 [facility] Comment on above: Performed By: #### ANJALI PRADHAN, BMP #### [address] [place], [place] [id number] [employer]: Sarai Howell MD Chloride [Moles/Vol] 101 mmol/L Normal 98-107 [facility] Comment on above: Performed By: #### ANJALI PRADHAN, BMP #### [facility] [address] [place], [place] [id number] [employer]: Sarai Howell MD CO2 [Moles/Vol] 25 mmol/L Normal 20-31 [facility] Comment on above: Performed By: #### ANJALI PRADHAN, BMP #### [facility] [address] [place], [place] [id number] [employer]: Sarai Howell MD Creatinine [Mass/Vol] 1.3 mg/dL High 0.7-1.2 [facility] Comment on above: Performed By: #### ANJALI PRADHAN, BMP #### [facility] [address] [place] [address] [employer]: Sarai Howell MD GFR/1.73 sq M.predicted among non-blacks MDRD (S/P/Bld) [Vol rate/Area] mL/min/{1.73_m2} Normal >60 [facility] Comment on above: Result Comment: These [...] By: #### T ANJALI AYALA, BMP #### [facility] [address] [place] [address] [employer]: Sarai Howell MD Glucose [Mass/Vol] 87 mg/dL Normal 70-99 [facility] Comment on above: Performed By: #### ANJALI PRDAHAN, BMP #### [facility] [address] [place] [address] [employer]: Sarai Howell MD Potassium [Moles/Vol] 3.9 mmol/L Normal 3.7-5.3 [facility] Comment on above: Performed By: #### ANJALI PRADHAN, BMP #### [address] [place] [address] [employer]: Sarai Howell MD Sodium [Moles/Vol] 139 mmol/L Normal 135-144 [facility] Comment on above: Performed By: #### ANJALI PRADHAN, BMP #### [facility] [address] [place], [place] [id number] [employer]: Sarai Howell MD Urea nitrogen [Mass/Vol] 18 mg/dL Normal 8-23 [facility] Comment on above: Performed By: #### ANJALI PRADHAN, BMP #### [facility] [address] [place] [address] [employer]: Sarai Howell MD CBC with Diffon 04-25-2023 Abs. Basophil 0.04 k/uL Normal 0.00-0.20 [facility] Comment on above: Performed By: #### ANJALI PRADHAN, BMP #### [facility] [address] [place] [address] [place] [address] [employer]: Sarai Howell MD Abs.Imm.Granulocyte 0.04 k/uL Normal 0.00-0.30 [facility] Comment on above: Performed By: #### ANJALI PRADHAN, BMP #### [facility] [address] [place] [address] [employer]: Sarai Howell MD Abs.Neutrophil (Seg) 5.64 k/uL Normal 1.50-8.10 [facility] Comment on above: Performed By: #### ANJALI PRADHAN, BMP #### [address] [place] [address] [employer]: Sarai Howell MD Basophils/100 WBC (Bld) 1 % Normal 0-2 [facility] Comment on above: Performed By: #### ANJALI PRADHAN, BMP #### [address] [place] [address] [employer]: Sarai Howell MD Eosinophils (Bld) [#/Vol] 0.09 10*3/uL Normal 0.00-0.44 [facility] Comment on above: Performed By: #### ANJALI PRADHAN, BMP #### [address] [place], [place] [address] [employer]: Sarai Howell MD Eosinophils/100 WBC (Bld) 1 % Normal 1-4 [facility] Comment on above: Performed By: #### ANJALI PRADHAN, BMP #### [address] [place] [address] [employer]: Sarai Howell MD Erythrocyte distribution width (RBC) [Ratio] 15.4 % High 11.8-14.4 [facility] Comment on above: Performed By: #### ANJALI PRADHAN, BMP #### [facility] [address] [place], [place] [id number] [employer]: Sarai Howell MD Hematocrit (Bld) [Volume fraction] 40.6 % Low 40.7-50.3 [facility] Comment on above: Performed By: #### ANJALI PRADHAN, BMP #### [address] [place], [facility]83 [employer]: Sarai Howell MD Hemoglobin (Bld) [Mass/Vol] 13.1 g/dL Normal 13.0-17.0 [facility] Comment on above: Performed By: #### ANJALI PRADHAN, BMP #### [address] [place], [place] [id number] [employer]: Sarai Howell MD Immature granulocytes/100 WBC (Bld) 1 % High 0 [facility] Comment on above: Performed By: #### ANJALI PRADHAN, BMP #### [address] [place], [facility]83 [employer]: Sarai Howell MD Lymphocytes (Bld) [#/Vol] 1.86 10*3/uL Normal 1.10-3.70 [facility] Comment on above: Performed By: #### ANJALI PRADHAN, BMP #### [address] [place], [facility]83 [employer]: Sarai Howell MD Lymphocytes/100 WBC (Bld) 22 % Low 24-43 [facility] Comment on above: Performed By: #### ANJALI PRADHAN, BMP #### [address] [place], [place] [id number] [employer]: Sarai Howell MD MCH (RBC) [Entitic mass] 29.0 pg Normal 25.2-33.5 [facility] Comment on above: Performed By: #### ANJALI PRADHAN, BMP #### [facility] [address] [place] [id number] [employer]: Sarai Howell MD MCHC (RBC) [Mass/Vol] 32.3 g/dL Normal 28.4-34.8 [facility] Comment on above: Performed By: #### T ANJALI AYALA, BMP #### [facility] [address] [place] [address] [employer]: Sarai Howell MD MCV (RBC) [Entitic vol] 89.8 fL Normal 82.6-102.9 [facility] Comment on above: Performed By: #### ANJALI PRADHAN, BMP #### [address] [place] [address] [employer]: Sarai Howell MD Monocytes (Bld) [#/Vol] 0.83 10*3/uL Normal 0.10-1.20 [facility] Comment on above: Performed By: #### ANJALI PRADHAN, BMP #### [address] [place] [id number] [employer]: Sarai Howell MD Monocytes/100 WBC (Bld) 10 % Normal 3-12 [facility] Comment on above: Performed By: #### ANJALI PRADHAN, BMP #### [address] [place] [address] [employer]: Sarai Howell MD Neutrophil (Seg) 65 % Normal 36-65 [facility] Comment on above: Performed By: #### T ANJALI AYALA, BMP #### [facility] [address] [place] [id number] [employer]: Sarai Howell MD NRBC Automated 0.0 per 100 WBC Normal 0.0 [facility] Comment on above: Performed By: #### T ANJALI AYALA, BMP #### [facility] [address] [place] [address] [employer]: Sarai Howell MD Platelet mean volume (Bld) [Entitic vol] 11.9 fL Normal 8.1-13.5 [facility] Comment on above: Performed By: #### ANJALI PRADHAN, BMP #### [facility] [address] [place] [id number] [employer]: Sarai Howell MD Platelets (Bld) [#/Vol] 254 10*3/uL Normal 138-453 [facility] Comment on above: Performed By: #### ANJALI PRADHAN, BMP #### [facility] [address] [place] [id number] [employer]: Sarai Howell MD RBC (Bld) [#/Vol] 4.52 10*6/uL Normal 4.21-5.77 [facility] Comment on above: Performed By: #### ANJALI PRADHAN, BMP #### [facility] [address] [place] [id number] [employer]: Sarai Howell MD WBC (Bld) [#/Vol] 8.5 10*3/uL Normal 3.5-11.3 [facility] Comment on above: Performed By: #### ANJALI PRADHAN, BMP #### [address] [place] [id number] [employer]: Sarai Howell MD CT HEAD WO CONTRASTon [...] Babs Mae MD 04/25/23 Final result Normal [facility] Flu A/B Ag Detectionon 04-25 Flu A Ag Detection Negative Normal NEG [facility] Comment on above: Result Comment: for Influenza A Antigen Performed By: #### L ACTIC #### [facility] [address] [place] [address] [place] [address] [employer]: Sarai Howell MD Flu B Ag Detection Negative Normal NEG [facility] Comment on above: Result Comment: for Influenza B Antigen. Performed By: #### L ACTIC #### [address] [place] [address] [employer]: Sarai Howell MD Lactic Acidon 04-25-2023 Lactate [Moles/Vol] 1.3 mmol/L Normal 0.5-2.2 [facility] Comment on above: Performed By: #### L ACTIC #### [facility] [address] [place] [address] [place] [address] [employer]: Sarai Howell MD [id number] 04-25-2023 SARS-CoV-2 (COVID-19) RNA JOSÉ MIGUEL+probe Ql (Unsp spec) Not detected Normal NOTDET [facility] Comment on above: Result Comment: Rapid [...] management decisions. Fact sheet for Healthcare Providers: https://www.fda.gov/media/360588/download Fact sheet for Patients: https://www.fda.gov/media/859124/download Methodology: Isothermal Nucleic Acid Amplification Performed By: #### C OVRB #### [address] [place] [id number] [employer]: Sarai Howell MD Troponinon 04-25-9829 Troponin, High Sens 26 ng/L High 022 [facility] Comment on above: Result Comment: High Sensitivity Troponin values cannot be compared with other Troponin methodologies. Performed By: #### T ROPI #### [address] [place] [id number] [employer]: Sarai Howell MD Troponin, High Sens 27 ng/L High 022 [facility] Comment on above: Result Comment: High Sensitivity Troponin values cannot be compared with other Troponin methodologies. Performed By: #### T ROPI, CDP, BMP #### [address] [place] [id number] [employer]: Sarai Howell MD UA w/Reflex Cultureon 2022 Bilirubin, SemiQt,Ur SMALL Abnormal NEG [facility] Comment on above: Performed By: #### L ACTIC #### [address] [place] [id number] [employer]: Sarai Howell MD Blood, Urine 3+ Abnormal NEG [facility] Comment on above: Performed By: #### L ACTIC #### [facility] [address] [place], [place] [id number] [employer]: Sarai Howell MD Clarity (U) Cloudy Abnormal CLEAR [facility] Comment on above: Performed By: #### L ACTIC #### [facility] [address] [place], [place] [id number] [employer]: Sarai Howell MD Color (U) Yellow Normal YEL [facility] Comment on above: Performed By: #### L ACTIC #### [facility] [address] [place], [place] [id number] [employer]: Sarai Howell MD Glucose Ql (U) Negative Normal NEG [facility] Comment on above: Performed By: #### L ACTIC #### [facility] [address] [place] [address] Dr. [place], [place] [id number] [employer]: Sarai Howell MD Ketones Ql (U) 1+ mg/dL Abnormal NEG [facility] Comment on above: Performed By: #### L ACTIC #### [facility] [address] [place] [address] Dr. [place], [place] [id number] [employer]: Sarai Howell MD Leukocyte esterase Test strip Ql (U) TRACE Abnormal NEG [facility] Comment on above: Performed By: #### L ACTIC #### [facility] [address] [place], [place] [id number] [employer]: Sarai Howell MD Nitrite,Ur Negative Normal [facility] Comment on above: Performed By: #### L ACTIC #### [facility] [address] [place], [place] [id number] [employer]: Sarai Howell MD PH,Ur 6.0 Normal 5.0-9.0 [facility] Comment on above: Performed By: #### L ACTIC #### [facility] [address] [place], [place] [id number] [employer]: Sarai Howell MD Protein Ql (U) 1+ mg/dL Abnormal NEG [facility] Comment on above: Performed By: #### L ACTIC #### [facility] [address] [place], [place] [id number] [employer]: Sarai Howell MD Spec. [place],Ur >1.030 High 1.010-1.02 0 [facility] Comment on above: Performed By: #### L ACTIC #### [facility] [address] [place] [address] Dr. [place], [place] [id number] [employer]: Sarai Howell MD Urobilinogen,Ur Normal Normal 0.0-1.0 [facility] Comment on above: Performed By: #### L ACTIC #### [facility] [address] [place] [address] Dr. [place], [place] [id number] [employer]: Sarai Howell MD Urinalysis,Microon 3 Bacteria 1+ Abnormal NONE [facility] Comment on above: Performed By: #### L ACTIC #### [facility] [address] [place] [address] Dr. [place], [place] [id number] [employer]: Sarai Howell MD Epithelial cells LM Ql (Urine sed) None Normal 0-5 [facility] Comment on above: Performed By: #### L ACTIC #### [facility] [address] [place], [place] [id number] [employer]: Sarai Howell MD Mucus Strands TRACE Abnormal NONE [facility] Comment on above: Performed By: #### L ACTIC #### [facility] [address] [place], [place] [id number] [employer]: Sarai Howell MD Urine RBC's 20 TO 50 Normal 0-2 [facility] Comment on above: Performed By: #### L ACTIC #### [facility] [address] [place] [address] [employer]: Sarai Howell MD Urine WBC's 2 TO 5 Normal 0-5 [facility] Comment on above: Performed By: #### L ACTIC #### [facility] [address] [place] [address] [employer]: Sarai Howell MD XR CHEST PORTABLEon 04-25-20 [...] Sarai Henson MD 04/25/23 Final result Normal [facility] BNPon 01-17-2023 Natriuretic peptide B (Bld) [Mass/Vol] 210.0 pg/mL Normal <=900.0 [facility] Comment on above: Performed By: #### B TOWING PILOT, CMADM, CMP ####[facility] [id number] [place] [address]Dr. Donna Malone CARDIAC MJ ADMITon 023 CK [Catalytic activity/Vol] 67 U/L Normal 39-308 [facility] Comment on above: Performed By: #### B TOWING PILOT, CMADM, CMP ####[facility] [id number] [place] [address]Dr. Donna Malone CK.MB [Mass/Vol] 2.51 ng/mL Normal <=3.60 [facility] Comment on above: Performed By: #### B TOWING PILOT, CMADM, CMP ####[facility] [id number] [place] [address]Dr. Donna Malone HSTROP 9.2 pg/mL Normal 4.0-76.1 [facility] Comment on above: Result Comment: CUT- OFF POINTS HAVE BEEN ESTABLISHED BASED ON THE FOURTH UNIVERSAL DEFINITIONS OF MYOCARDIALINFARCTION. THE UPPER REFERENCE LIMIT (URL) OF TROPONIN, DEFINED THE 99TH PERCENTILE OFcTnI DISTRIBUTION IN A REFERENCE POPULATION, HAS BEEN CONFIRMED THE DECISION THRESHOLDFOR NV DIAGNOSIS. Performed By: #### B TOWING PILOT, CMADM, CMP ####[facility] [id number] [place] [address]Dr. Donna Malone BINDU 68 ng/mL Normal 16-96 [facility] Comment on above: Performed By: #### B TOWING PILOT, CMADM, CMP ####[facility] [address] [place], [place] [address]Dr. Donna Malone CBC AUTO DIFFon 01-17-2023 BASO # 0.1 103/ul Normal 0.0-0.1 [facility] Comment on above: Performed By: #### C BC ####[facility] [address] [place], [place] [address]Dr. Donna Malone Basophils/100 WBC (Bld) 0.8 % Normal 0.2-2.0 [facility] Comment on above: Performed By: #### C BC ####[facility] [address] [place], [place] [address]Dr. Donna Malone EO # 0.1 103/ul Normal 0.0-0.7 [facility] Comment on above: Performed By: #### C BC ####[facility] [id number] [place] [address]Dr. Donna Malone Eosinophils/100 WBC (Bld) 1.4 % Normal 0.9-7.0 [facility] Comment on above: Performed By: #### C BC ####[facility] [id number] [place] [address]Dr. Donna Malone Erythrocyte distribution width (RBC) [Ratio] 14.6 % Normal 11.0-15.0 [facility] Comment on above: Performed By: #### C BC ####[facility] Efcobevzpa[address] [place] [address]Dr. Donna Malone Hematocrit (Bld) [Volume fraction] 43.9 % Normal 42.0-54.0 [facility] Comment on above: Performed By: #### C BC ####[facility] Tqdxnhefnz[address] [place] [address]Dr. Donna Malone Hemoglobin (Bld) [Mass/Vol] 14.2 g/dL Normal 14.0-18.0 [facility] Comment on above: Performed By: #### C BC ####[facility] Owycedgrqg[address] [place] [address]Dr. Donna Malone IG # 0.04 10e3/ul Critically high 0.00-0.03 [facility] Comment on above: Performed By: #### C BC ####[facility] Vqgojevskl[address] [place], [place] [address]Dr. Donna Malone IG % 0.4 % Normal 0.0-0.5 [facility] Comment on above: Performed By: #### C BC ####[facility] Vtvspuqhan75[address] [place], [place] [address]Dr. Donna Malone LYMPH # 2.3 103/ul Normal 1.2-3.8 [facility] Comment on above: Performed By: #### C BC ####[facility] Kolmsfuhts[address] [place], [place] [address]Dr. Donna Malone Lymphocytes/100 WBC (Bld) 25.4 % Normal 20.5-60.0 [facility] Comment on above: Performed By: #### C BC ####[facility] Llapoxopya[address] [place], [place] [address]Dr. Donna Malone MANUAL DIFF REQ NO Normal [facility] Comment on above: Performed By: #### C BC ####[facility] Lnkfuyazex[address] [place], [place] [address]Dr. Donna Malone MCH (RBC) [Entitic mass] 29.6 pg Normal 25.9-34.0 [facility] Comment on above: Performed By: #### C BC ####[facility] Vyafdmfmzf4[address] [place] [id number]. Donna Malone MCHC (RBC) [Mass/Vol] 32.3 g/dL Normal 29.9-35.2 [facility] Comment on above: Performed By: #### C BC ####[facility] Ggnhpdoefa[address] [place] [id number]. Donna Malone MCV (RBC) [Entitic vol] 91.5 fL Normal 80.0-94.0 [facility] Comment on above: Performed By: #### C BC ####[facility] Swctthdsdq[address] [place], [place] [address]Dr. Donna Malone MONO # 0.7 103/ul Normal 0.3-0.8 [facility] Comment on above: Performed By: #### C BC ####[facility] Cweqqjeukq[address] [place], [place] [address]Dr. Donna Malone Monocytes/100 WBC (Bld) 7.5 % Normal 1.7-12.0 [facility] Comment on above: Performed By: #### C BC ####[facility] Fvdkdqvdse[address] [place], [place] [address]Dr. Donna Malone NEUT # 5.9 103/ul Normal 1.4-6.5 [facility] Comment on above: Performed By: #### C BC ####[facility] Wtenmbitcm12[address] [place], [place] [address]Dr. Donna Malone Neutrophils/100 WBC (Bld) 64.5 % Normal 43.0-75.0 [facility] Comment on above: Performed By: #### C BC ####[facility] Xxpiqtsern[address] [place], [place] [address]Dr. Donna Malone Platelet mean volume (Bld) [Entitic vol] 10.6 fL Normal 9.5-13.5 [facility] Comment on above: Performed By: #### C BC ####[facility] Tctmodebos[address] [place], [place] [address]Dr. Donna Faisal PLT 296 103/ul Normal 150-450 [facility] Comment on above: Performed By: #### C BC ####[facility] Zxgeofiazz43[address] [place] [id number]. Donna Malone RBC 4.80 106/ul Normal 4.70-6.10 [facility] Comment on above: Performed By: #### C BC ####[facility] Dagfedofvz8[address] [place] [id number]. Donna Malone WBC 9.1 103/ul Normal 4.0-11.0 [facility] Comment on above: Performed By: #### C BC ####[facility] Mwvkqpiahz[address] [place] [address] Donna Malone CT CSPINE WO CONon 3 CT CSPINE WO CON Normal [facility] CT HEAD WO CONon 01-17-2023 CT HEAD WO CON Normal [facility] CT LSPINE WO CONon 3 CT LSPINE WO CON Normal [facility] PROF 14(COMP METB)on 023 Albumin [Mass/Vol] 3.3 g/dL Critically low 3.4-5.0 [facility] Comment on above: Performed By: #### B TOWING PILOT, CMADM, CMP ####[facility] Fldsvkiptk[address] [place] [address]Dr. Rubyyvan Faisal Albumin/Globulin [Mass ratio] 0.8 {ratio} Normal [facility] Comment on above: Performed By: #### B TOWING PILOT, CMADM, CMP ####[facility] Iyzhjvikwe[address] [place] [address]Dr. Donna Malone ALP [Catalytic activity/Vol] 55 U/L Normal 46-116 [facility] Comment on above: Performed By: #### B TOWING PILOT, CMADM, CMP ####[facility] Iwcahaymer[address] [place] [address]Dr. Donna Malone ALT [Catalytic activity/Vol] 15 U/L Critically low 16-63 [facility] Comment on above: Performed By: #### B TOWING PILOT, CMADM, CMP ####[facility] Uparqztpko40[address] [place] [address]Dr. Donna Malone Anion gap [Moles/Vol] 9.6 mmol/L Normal [facility] Comment on above: Performed By: #### B TOWING PILOT, CMADM, CMP ####[facility] Vpvvwdtjkv66[address] [place] [address]Dr. Donna Malone AST [Catalytic activity/Vol] 14 U/L Critically low 15-37 [facility] Comment on above: Performed By: #### B TOWING PILOT, CMADM, CMP ####[facility] Fncvgzehna18[address] [place] [address]Dr. Donna Malone Bilirubin [Mass/Vol] 0.2 mg/dL Normal 0.2-1.0 [facility] Comment on above: Performed By: #### B TOWING PILOT, CMADM, CMP ####[facility] Kis[address]shzba37[address] [place] [address]Dr. Donna Malone Calcium [Mass/Vol] 8.6 mg/dL Normal 8.5-10.1 [facility] Comment on above: Performed By: #### B TOWING PILOT, CMADM, CMP ####[facility] Bmetuuulsa[address] [place], [place] [address]Dr. Donna Malone Chloride [Moles/Vol] 107 mmol/L Normal 98-107 [facility] Comment on above: Performed By: #### B TOWING PILOT, CMADM, CMP ####[facility] Ekrznnrnxc8[address] [place], [place] [address]Dr. Donna Malone CO2 [Moles/Vol] 25.9 mmol/L Normal 21.0-32.0 [facility] Comment on above: Performed By: #### B TOWING PILOT, CMADM, CMP ####[facility] Kbphdzzvec[address] [place], [place] [address]Dr. Donna Malone Creatinine [Mass/Vol] 1.12 mg/dL Normal 0.70-1.30 [facility] Comment on above: Performed By: #### B TOWING PILOT, CMADM, CMP ####[facility] Fbbapdglkf[address] [place], [place] [address]Dr. Donna Malone EGFR-AF SLOVAK >60 Normal >=60 [facility] Comment on above: Performed By: #### B TOWING PILOT, CMADM, CMP ####[facility] Lyureizqkk59[address] [place], [place] [address]Dr. Donna Malone EGFR-NON AF SLOVAK >60 Normal >=60 [facility] Comment on above: Performed By: #### B TOWING PILOT, CMADM, CMP ####[facility] Fnkrauwlum[address] [place] [address]Dr. Donna Malone Globulin (S) [Mass/Vol] 4.2 g/dL Normal [facility] Comment on above: Performed By: #### B TOWING PILOT, CMADM, CMP ####[facility] Z[address]qwdrdlb[address] [place] [address]Dr. Donna Malone Glucose [Mass/Vol] 163 mg/dL Critically high 74-106 T [facility] Comment on above: Performed By: #### B TOWING PILOT, CMADM, CMP ####[facility] Bnmtbxqtnd35[address] [place] [address]Dr. Donna Malone Potassium [Moles/Vol] 4.5 mmol/L Normal 3.5-5.1 [facility] Comment on above: Performed By: #### B TOWING PILOT, CMADM, CMP ####[facility] Jfvqdcighk20[address] [place] [address]Dr. Donna Malone Protein [Mass/Vol] 7.5 g/dL Normal 6.4-8.2 [facility] Comment on above: Performed By: #### B TOWING PILOT, CMADM, CMP ####[facility] Mmfhxtlzyu77[address] [place] [address]Dr. Donna Malone Sodium [Moles/Vol] 138 mmol/L Normal 136-145 [facility] Comment on above: Performed By: #### B TOWING PILOT, CMADM, CMP ####[facility] Kegdvznffg4735 [place] [address]Dr. Donna Malone Urea nitrogen [Mass/Vol] 11.0 mg/dL Normal 7.0-18.0 [facility] Comment on above: Performed By: #### B TOWING PILOT, CMADM, CMP ####[facility] Ayunrwikxj[address] [place] [address]Dr. Donna Malone Urea nitrogen/Creatinine [Mass ratio] 9.8 mg/mg Normal [facility] Comment on above: Performed By: #### B TOWING PILOT, CMADM, CMP ####[facility] Anhxxdixua3[address] [place] [address]Dr. Donna Malone PROTIMEon 01-17-2023 INR Coag (PPP) [Relative time] 0.94 {INR} Normal [facility] Comment on above: Performed By: #### P TT, PT ####[facility] Ddmpskhxhf[address] [place], [place] [address]Dr. Donna Malone INR GUIDELINES SEE BELOW Normal [facility] Comment on above: Result Comment: FLORESITA RED INR: 2.0 - 3.0 CONDITIONS NOT LISTED BELOW 2.5 - 3.5 FOR PROSTHETIC HEART VALVE REPLACEMENT 2.5 - 3.5 RECURRENT THROMBOSIS Performed By: #### P TT, PT ####[facility] Qjsyfvqmvn[address] [place], [place] [address]Dr. Donna Malone PT Coag (PPP) [Time] 10.0 s Normal 9.0-11.6 [facility] Comment on above: Performed By: #### P TT, PT ####[facility] Qnjjckluem67[address] [place], [place] [address]Dr. Donna Malone PTTon 01-17-2023 aPTT Coag (Bld) [Time] 29.6 s Normal 22.3-36.2 [facility] Comment on above: Performed By: #### P TT, PT ####[facility] Oecublclwt[address] [place], [place] [address]Dr. Donna Malone CBC AUTO DIFFon 11-17-2022 BASO # 0.0 103/ul Normal 0.0-0.1 [facility] Comment on above: Performed By: #### C BC ####[facility] Ffzeyxvdoj46[address] [place], [place] [address]Dr. Donna Malone Basophils/100 WBC (Bld) 0.2 % Normal 0.2-2.0 [facility] Comment on above: Performed By: #### C BC ####[facility] Swmaqpmfhq5932[address] [place], [place] [address]Dr. Donna Malone EO # 0.0 103/ul Normal 0.0-0.7 [facility] Comment on above: Performed By: #### C BC ####[facility] Rpciwrsneb[address] [place] [address]Dr. Donna Malone Eosinophils/100 WBC (Bld) 0.0 % Critically low 0.9-7.0 [facility] Comment on above: Performed By: #### C BC ####[facility] Ngzbzyamzw9057 [place] [address]Dr. Donna Malone Erythrocyte distribution width (RBC) [Ratio] 14.5 % Normal 11.0-15.0 [facility] Comment on above: Performed By: #### C BC ####[facility] Zbkkmvlvdz78[address] [place], [place] [address]Dr. Donna Malone Hematocrit (Bld) [Volume fraction] 39.6 % Critically low 42.0-54.0 [facility] Comment on above: Performed By: #### C BC ####[facility] Uzwqtqcywn16[address] [place], [place] [address]Dr. Donna Malone Hemoglobin (Bld) [Mass/Vol] 13.3 g/dL Critically low 14.0-18.0 [facility] Comment on above: Performed By: #### C BC ####[facility] Mmsbqbmjxd13[address] [place], [place] [address]Dr. Donna Malone IG # 0.06 10e3/ul Critically high 0.00-0.03 [facility] Comment on above: Performed By: #### C BC ####[facility] Sxkyriryxp[address] [place], [place] [address]Dr. Donna Malone IG % 0.5 % Normal 0.0-0.5 [facility] Comment on above: Performed By: #### C BC ####[facility] Ebuozshopl85[address] [place], [place] [address]DrElizabeth Donna Malone LYMPH # 1.0 103/ul Critically low 1.2-3.8 [facility] Comment on above: Performed By: #### C BC ####[facility] Rtphnsxabm039[address] [place], [place] [address]Dr. Donna Malone Lymphocytes/100 WBC (Bld) 8.3 % Critically low 20.5-60.0 [facility] Comment on above: Performed By: #### C BC ####[facility] Fdcwdhteme[address] [place] [address]Dr. Donna Malone MANUAL DIFF REQ NO Normal [facility] Comment on above: Performed By: #### C BC ####[facility] Fxnwbaowpy5[address] [place] [address]Dr. Donna Malone MCH (RBC) [Entitic mass] 29.4 pg Normal 25.9-34.0 [facility] Comment on above: Performed By: #### C BC ####[facility] Rqgqzdwann9599 [place] [address]Dr. Donna Malone MCHC (RBC) [Mass/Vol] 33.6 g/dL Normal 29.9-35.2 [facility] Comment on above: Performed By: #### C BC ####[facility] Mxtaxuytiz[address] [place], [place] [address]Dr. Donna Malone MCV (RBC) [Entitic vol] 87.6 fL Normal 80.0-94.0 [facility] Comment on above: Performed By: #### C BC ####[facility] Iuumvicgez5[address] [place], [place] [address]DrElizabeth Malone MONO # 0.8 103/ul Normal 0.3-0.8 [facility] Comment on above: Performed By: #### C BC ####[facility] Ikqlfdtjly4[address] [place], [place] [address]Dr. Donna Malone Monocytes/100 WBC (Bld) 6.6 % Normal 1.7-12.0 [facility] Comment on above: Performed By: #### C BC ####[facility] Xoiekfwjqn58[address] [place], [place] [address]DrElizabeth Malone NEUT # 10.2 103/ul Critically high 1.4-6.5 [facility] Comment on above: Performed By: #### C BC ####[facility] Bqosdumnfk7[address] [place], [place] [address]DrElizabeth Malone Neutrophils/100 WBC (Bld) 84.4 % Critically high 43.0-75.0 [facility] Comment on above: Performed By: #### C BC ####[facility] Coxkchwedh[address] [place] [address]Dr. Donna Malone Platelet mean volume (Bld) [Entitic vol] 11.5 fL Normal 9.5-13.5 [facility] Comment on above: Performed By: #### C BC ####[facility] Vvpkoigopd77[address] [place] [address]Dr. Donna Malone PLT 204 103/ul Normal 150-450 [facility] Comment on above: Performed By: #### C BC ####[facility] Outqeggloi4760 [place] [address]Dr. Donna Malone RBC 4.52 106/ul Critically low 4.70-6.10 [facility] Comment on above: Performed By: #### C BC ####[facility] Wadmtktyuc2314 [place] [address]DrElizabeth Malone WBC 12.0 103/ul Critically high 4.0-11.0 [facility] Comment on above: Performed By: #### C BC ####[facility] Pjhxwurxzo[address] [place], [place] [address]DrElizabeth Malone MAGNESIUMon 11-17-2022 Magnesium [Mass/Vol] 1.9 mg/dL Normal 1.8-2.4 [facility] Comment on above: Performed By: #### C MP, MG ####[facility] Mhaowqekud20[address] [place] [address]DrElizabeth Malone PROF 14(COMP METB)on 023 Albumin [Mass/Vol] 3.2 g/dL Critically low 3.4-5.0 [facility] Comment on above: Performed By: #### C MP, MG ####[facility] Zwcygzelzq6821 [place] [address]DrElizabeth Malone Albumin/Globulin [Mass ratio] 1.0 {ratio} Normal [facility] Comment on above: Performed By: #### C MP, MG ####[facility] Apzaodbxtl3170 [place] [address]DrElizabeth Malone ALP [Catalytic activity/Vol] 51 U/L Normal 46-116 [facility] Comment on above: Performed By: #### C MP, MG ####[facility] Mxofirdqle7104 [place] [address]Dr. Donna Malone ALT [Catalytic activity/Vol] 16 U/L Normal 16-63 [facility] Comment on above: Performed By: #### C MP, MG ####[facility] Ouhxwtcchm8387 [place] [address]Dr. Donna Malone Anion gap [Moles/Vol] 14.7 mmol/L Normal [facility] Comment on above: Performed By: #### C MP, MG ####[facility] Yqvvxadtcr8484 [place] [address]Dr. oDnna Malone AST [Catalytic activity/Vol] 24 U/L Normal 15-37 [facility] Comment on above: Performed By: #### C MP, MG ####[facility] Mcvacbgtst7[address] [place] [address]Dr. Donna Malone Bilirubin [Mass/Vol] 0.5 mg/dL Normal 0.2-1.0 [facility] Comment on above: Performed By: #### C MP, MG ####[facility] Dwaouitsqo5476[address] [place], [place] [address]Dr. Donna Malone Calcium [Mass/Vol] 8.6 mg/dL Normal 8.5-10.1 [facility] Comment on above: Performed By: #### C MP, MG ####[facility] Tponmcechv3487 [place] [address]Dr. Donna Malone Chloride [Moles/Vol] 108 mmol/L Critically high 98-107 [facility] Comment on above: Performed By: #### C MP, MG ####[facility] Rdeqnvwdwa1693 [place] [address]Dr. Donna Malone CO2 [Moles/Vol] 21.6 mmol/L Normal 21.0-32.0 [facility] Comment on above: Performed By: #### C MP, MG ####[facility] Gztfjksttv9[address] [place], [place] [address]Dr. Donna Malone Creatinine [Mass/Vol] 0.83 mg/dL Normal 0.70-1.30 [facility] Comment on above: Performed By: #### C MP, MG ####[facility] Tefqlsuokx4794 [place] [address]Dr. Donna Malone EGFR-AF SLOVAK >60 Normal >=60 [facility] Comment on above: Performed By: #### C MP, MG ####[facility] Txlhuriyuw32[address] [place] [address]Dr. Donna Faisal EGFR-NON AF SLOVAK >60 Normal >=60 [facility] Comment on above: Performed By: #### C MP, MG ####[facility] Qnvmzcaxha[address] [place], [place] [address]Dr. Donna Faisal Globulin (S) [Mass/Vol] 3.2 g/dL Normal [facility] Comment on above: Performed By: #### C MP, MG ####[facility] Dzjmodfdwj8056[address] [place], [place] [address]Dr. Donna Faisal Glucose [Mass/Vol] 162 mg/dL Critically high 74-106 [facility] Comment on above: Performed By: #### C MP, MG ####[facility] Jtijcvoiew3[address] [place], [place] [address]Dr. Donna Faisal Potassium [Moles/Vol] 3.3 mmol/L Critically low 3.5-5.1 [facility] Comment on above: Performed By: #### C MP, MG ####[facility] Bmnpvwmbfh08[address] [place], [place] [address]Dr. Donna Malone Protein [Mass/Vol] 6.4 g/dL Normal 6.4-8.2 [facility] Comment on above: Performed By: #### C MP, MG ####[facility] Sgdwuepybq9313[address] [place], [place] [address]Dr. Donna Faisal Sodium [Moles/Vol] 141 mmol/L Normal 136-145 [facility] Comment on above: Performed By: #### C MP, MG ####[facility] Ehnjsjokhs[address] [place], [place] [address]Dr. Donna Malone Urea nitrogen [Mass/Vol] 12.0 mg/dL Normal 7.0-18.0 [facility] Comment on above: Performed By: #### C MP, MG ####[facility] Gdbczasygp4232[address] [place], [place] [address]Dr. Donna Malone Urea nitrogen/Creatinine [Mass ratio] 14.5 mg/mg Normal [facility] Comment on above: Performed By: #### C MP, MG ####[facility] Xrpkgkzvbh4038[address] [place], [place] [address]Dr. Donna Malone AMMONIAon 11-16-2022 Ammonia (P) [Mass/Vol] ug/dL Critically low 11-32 [facility] Comment on above: Performed By: #### A MM ####[facility] Zpyjsuyice45[address] [place], [place] [address]Dr. Donna Malone CBC AUTO DIFFon 11-16-2022 BASO # 0.0 103/ul Normal 0.0-0.1 [facility] Comment on above: Performed By: #### C BC ####[facility] Nwmlbjnkkx[address] [place], [place] [address]Dr. Donna Malone Basophils/100 WBC (Bld) 0.2 % Normal 0.2-2.0 [facility] Comment on above: Performed By: #### C BC ####[facility] Kdcgjxgigz24[address] [place], [place] [address]Dr. Donna Malone EO # 0.0 103/ul Normal 0.0-0.7 [facility] Comment on above: Performed By: #### C BC ####[facility] Mjsnnxlpvx[address] [place], [place] [address]Dr. Donna Malone Eosinophils/100 WBC (Bld) 0.0 % Critically low 0.9-7.0 [facility] Comment on above: Performed By: #### C BC ####[facility] Gwsjgrpcmw[address] [place], [place] [address]Dr. Donna Malone Erythrocyte distribution width (RBC) [Ratio] 14.4 % Normal 11.0-15.0 [facility] Comment on above: Performed By: #### C BC ####[facility] Xdwwemmwhs7366 [place] [address]Dr. Rubyyvan Malone Hematocrit (Bld) [Volume fraction] 38.6 % Critically low 42.0-54.0 [facility] Comment on above: Performed By: #### C BC ####[facility] Leiuzvfkfj7848 [place] [address]Dr. Donna Malone Hemoglobin (Bld) [Mass/Vol] 13.1 g/dL Critically low 14.0-18.0 [facility] Comment on above: Performed By: #### C BC ####[facility] Xzjeqfwvpn3967[address] [place], [place] [address]Dr. Donna Malone IG # 0.05 10e3/ul Critically high 0.00-0.03 [facility] Comment on above: Performed By: #### C BC ####[facility] Otothznevi67[address] [place], [place] [address]Dr. Donna Malone IG % 0.5 % Normal 0.0-0.5 [facility] Comment on above: Performed By: #### C BC ####[facility] Vfhbctlzqw[address] [place], [place] [address]Dr. Donna Malone LYMPH # 1.0 103/ul Critically low 1.2-3.8 [facility] Comment on above: Performed By: #### C BC ####[facility] Lohgwqkeqn9734[address] [place], [place] [address]Dr. Donna Malone Lymphocytes/100 WBC (Bld) 10.8 % Critically low 20.5-60.0 [facility] Comment on above: Performed By: #### C BC ####[facility] Xeirbrcpab6[address] [place], [place] [address]Dr. Donna Malone MANUAL DIFF REQ NO Normal [facility] Comment on above: Performed By: #### C BC ####[facility] Hbxwnudcrk[address] [place], [place] [address]Dr. Donna Malone MCH (RBC) [Entitic mass] 29.4 pg Normal 25.9-34.0 [facility] Comment on above: Performed By: #### C BC ####[facility] Etyfmtxpiu8[address] [place] [address]Dr. Donna Faisal MCHC (RBC) [Mass/Vol] 33.9 g/dL Normal 29.9-35.2 [facility] Comment on above: Performed By: #### C BC ####[facility] Onislrerhh4961 [place] [id number]. Donna Malone MCV (RBC) [Entitic vol] 86.7 fL Normal 80.0-94.0 [facility] Comment on above: Performed By: #### C BC ####[facility] Bivydpcijs[address] [place], [place] [address]Dr. Donna Malone MONO # 0.4 103/ul Normal 0.3-0.8 [facility] Comment on above: Performed By: #### C BC ####[facility] [address]qcdunffh[address] [place], [place] [address]Dr. Donna Malone Monocytes/100 WBC (Bld) 4.4 % Normal 1.7-12.0 [facility] Comment on above: Performed By: #### C BC ####[facility] [address]remvubzvt[address] [place], [place] [address]Dr. Donna Malone NEUT # 7.9 103/ul Critically high 1.4-6.5 [facility] Comment on above: Performed By: #### C BC ####[facility] [address]amrjaugqv25[address] [place], [place] [address]Dr. Donna Malone Neutrophils/100 WBC (Bld) 84.1 % Critically high 43.0-75.0 [facility] Comment on above: Performed By: #### C BC ####[facility] Jnbwntmxvb[address] [place], [place] [address]Dr. Donna Malone Platelet mean volume (Bld) [Entitic vol] 11.3 fL Normal 9.5-13.5 [facility] Comment on above: Performed By: #### C BC ####[facility] Plwxfsstvd6433[address] [place], [place] [address]Dr. Donna Malone PLT 201 103/ul Normal 150-450 [facility] Comment on above: Performed By: #### C BC ####[facility] [address]efrmdoyt[address] [place] [id number]. Donna Malone RBC 4.45 106/ul Critically low 4.70-6.10 [facility] Comment on above: Performed By: #### C BC ####[facility] [address]qgqlshsr[address] [place] [address]Dr. Donna Malone WBC 9.3 103/ul Normal 4.0-11.0 [facility] Comment on above: Performed By: #### C BC ####[facility] Tyzyhpfmvs[address] [place] [address]Dr. Donna Malone GLYCOHEMOGLOBIN A1Con 2022 ADA RECOMMENDATION SEE BELOW Normal [facility] Comment on above: Result Comment: ADA RECOMMENDED LIMIT 4.0 - 6.0 ADA THERAPEUTIC TARGET < 7.0 ACTION SUGGESTED > 7.0 Performed By: #### A 1C ####[facility] Kxcvgdpwhv[address] [place], [place] [address]Dr. Donna Malone Glucose [Mass/Vol] 128 mg/dL Normal [facility] Comment on above: Performed By: #### A 1C ####[facility] Jawjkyqyln[address] [place], [place] [address]Dr. Donna Malone HbA1c (Bld) [Mass fraction] 6.1 % Normal 4.5-6.2 [facility] Comment on above: Performed By: #### A 1C ####[facility] Dxdzkcpgow6[address] [place], [place] [address]Dr. Donna Malone MAGNESIUMon 11-16-2022 Magnesium [Mass/Vol] 1.8 mg/dL Normal 1.8-2.4 [facility] Comment on above: Performed By: #### C MP, MG ####[facility] Iwstbdyqkx57[address] [place], [place] [address]Dr. Donna Malone POINT OF CARE GLUCOSEon 11-07 Glucose [Mass/Vol] 170 mg/dL Critically high 74-106 T [facility] Comment on above: Performed By: #### P OCGLUC ####[facility] Oxuekitech8[address] [place], [place] [address]Dr. Donna Malone Glucose [Mass/Vol] 158 mg/dL Critically high 74-106 [facility] Comment on above: Performed By: #### P OCGLUC ####[facility] Sathwajhgu39[address] [place] [address]Dr. Donna Faisal Glucose [Mass/Vol] 176 mg/dL Critically high 74-106 [facility] Comment on above: Performed By: #### P OCGLUC ####[facility] Yhkdqppduu4399 [place] [address]Dr. Donna Malone PROF 14(COMP METB)on 023 Albumin [Mass/Vol] 3.1 g/dL Critically low 3.4-5.0 [facility] Comment on above: Performed By: #### C MP, MG ####[facility] Jclngtiuzm9174[address] [place], [place] [address]Dr. Donna Malone Albumin/Globulin [Mass ratio] 0.9 {ratio} Normal [facility] Comment on above: Performed By: #### C MP, MG ####[facility] Ejqnwohern2416[address] [place], [place] [address]Dr. Donna Faisal ALP [Catalytic activity/Vol] 52 U/L Normal 46-116 [facility] Comment on above: Performed By: #### C MP, MG ####[facility] Wtphvuqhxu750[address] [place], [place] [address]Dr. Donna Malone ALT [Catalytic activity/Vol] 13 U/L Critically low 16-63 [facility] Comment on above: Performed By: #### C MP, MG ####[facility] Xdxjxrjfey55[address] [place] [address]Dr. Donna Malone Anion gap [Moles/Vol] 15.7 mmol/L Normal [facility] Comment on above: Performed By: #### C MP, MG ####[facility] Xwktbxqyge8045[address] [place], [place] [address]Dr. Donna Malone AST [Catalytic activity/Vol] 16 U/L Normal 15-37 [facility] Comment on above: Performed By: #### C MP, MG ####[facility] Qckaejajyv1587 [place] [address]Dr. Donna Malone Bilirubin [Mass/Vol] 0.5 mg/dL Normal 0.2-1.0 [facility] Comment on above: Performed By: #### C MP, MG ####[facility] Oneozgsyea5377[address] [place], [place] [address]Dr. Donna Malone Calcium [Mass/Vol] 8.6 mg/dL Normal 8.5-10.1 [facility] Comment on above: Performed By: #### C MP, MG ####[facility] Rnhynmiqzb[address] [place], [place] [address]Dr. Donna Malone Chloride [Moles/Vol] 109 mmol/L Critically high 98-107 [facility] Comment on above: Performed By: #### C MP, MG ####[facility] Bribkyhjwk425[address] [place], [place] [address]Dr. Donna Malone CO2 [Moles/Vol] 21.7 mmol/L Normal 21.0-32.0 [facility] Comment on above: Performed By: #### C MP, MG ####[facility] Yyjlzmnasy9623[address] [place], [place] [address]Dr. Donna Malone Creatinine [Mass/Vol] 0.99 mg/dL Normal 0.70-1.30 [facility] Comment on above: Performed By: #### C MP, MG ####[facility] Ffbcxuvwae9754[address] [place], [place] [address]Dr. Donna Malone EGFR-AF SLOVAK >60 Normal >=60 [facility] Comment on above: Performed By: #### C MP, MG ####[facility] Grknqxagbi7822[address] [place], [place] [address]Dr. Donna Malone EGFR-NON AF SLOVAK >60 Normal >=60 [facility] Comment on above: Performed By: #### C MP, MG ####[facility] Okeqzfxfze9014[address] [place], [place] [address]Dr. Donna Malone Globulin (S) [Mass/Vol] 3.3 g/dL Normal [facility] Comment on above: Performed By: #### C MP, MG ####[facility] Tijrxehsce6242 [place] [address]Dr. Donna Malone Glucose [Mass/Vol] 168 mg/dL Critically high 74-106 T [facility] Comment on above: Performed By: #### C MP, MG ####[facility] Oqatolmiva[address] [place], [place] [address]Dr. Donna Malone Potassium [Moles/Vol] 3.4 mmol/L Critically low 3.5-5.1 [facility] Comment on above: Performed By: #### C MP, MG ####[facility] Gqipwknrxf9837[address] [place], [place] [address]Dr. Donna Malone Protein [Mass/Vol] 6.4 g/dL Normal 6.4-8.2 [facility] Comment on above: Performed By: #### C MP, MG ####[facility] Pksfwjljft1528[address] [place], [place] [address]Dr. Rubyyvan Malone Sodium [Moles/Vol] 143 mmol/L Normal 136-145 [facility] Comment on above: Performed By: #### C MP, MG ####[facility] Ojmenzpjcj89[address] [place], [place] [address]Dr. Donna Malone Urea nitrogen [Mass/Vol] 9.0 mg/dL Normal 7.0-18.0 [facility] Comment on above: Performed By: #### C MP, MG ####[facility] Ixvpryuyxo5424[address] [place], [place] [address]Dr. Donna Faisal Urea nitrogen/Creatinine [Mass ratio] 9.1 mg/mg Normal [facility] Comment on above: Performed By: #### C MP, MG ####[facility] Ptbdgaocsx3514[address] [place], [place] [address]Dr. Donna Faisal XR CHEST 2 Von 11-16-2022 XR CHEST 2 V Normal [facility] AMMONIAon 11-15-2022 Ammonia (P) [Moles/Vol] 20 umol/L Normal 11-32 [facility] Comment on above: Performed By: #### A MM ####[facility] Tspjtkhanm[address] [place], [place] [address]Dr. Donna Faisal CBC AUTO DIFFon 11-15-2022 BASO # 0.0 103/ul Normal 0.0-0.1 [facility] Comment on above: Performed By: #### C BC ####[facility] [address]qefgbyup77[address] [place] [address]Dr. Donna Malone Basophils/100 WBC (Bld) 0.5 % Normal 0.2-2.0 [facility] Comment on above: Performed By: #### C BC ####[facility] Nlzcbyjspf[address] [place], [place] [address]Dr. Donna Malone EO # 0.1 103/ul Normal 0.0-0.7 [facility] Comment on above: Performed By: #### C BC ####[facility] Roavausqct[address] [place], [place] [address]Dr. Donna Malone Eosinophils/100 WBC (Bld) 1.4 % Normal 0.9-7.0 [facility] Comment on above: Performed By: #### C BC ####[facility] Rvgnbuqiit9764[address] [place], [place] [address]Dr. Donna Malone Erythrocyte distribution width (RBC) [Ratio] 14.6 % Normal 11.0-15.0 [facility] Comment on above: Performed By: #### C BC ####[facility] Ievesfctoc[address] [place], [place] [address]Dr. Donna Malone Hematocrit (Bld) [Volume fraction] 36.8 % Critically low 42.0-54.0 [facility] Comment on above: Performed By: #### C BC ####[facility] Chwjpnbzkn24[address] [place], [place] [address]Dr. Donna aMlone Hemoglobin (Bld) [Mass/Vol] 12.1 g/dL Critically low 14.0-18.0 [facility] Comment on above: Performed By: #### C BC ####[facility] Ejzdwhdwvh[address] [place], [place] [address]Dr. Donna Malone IG # 0.01 10e3/ul Normal 0.00-0.03 [facility] Comment on above: Performed By: #### C BC ####[facility] Jwpjfruvqx[address] [place], [place] [address]Dr. Donna Malone IG % 0.2 % Normal 0.0-0.5 [facility] Comment on above: Performed By: #### C BC ####[facility] Dgxknqfjqj03[address] [place] [address]DrElizabeth Malone LYMPH # 1.7 103/ul Normal 1.2-3.8 [facility] Comment on above: Performed By: #### C BC ####[facility] Ahdmzfrpek6[address] [place] [address]Dr. Donna Malone Lymphocytes/100 WBC (Bld) 27.0 % Normal 20.5-60.0 [facility] Comment on above: Performed By: #### C BC ####[facility] [address]zbphgbt64[address] [place] [address]DrElizabeth Malone MANUAL DIFF REQ NO Normal [facility] Comment on above: Performed By: #### C BC ####[facility] Dilpjbddxw8881 [place] [address]Dr. Donna Malone MCH (RBC) [Entitic mass] 29.5 pg Normal 25.9-34.0 [facility] Comment on above: Performed By: #### C BC ####[facility] Vjhrktrbrz78[address] [place] [address]Dr. Rubyyvan Malone MCHC (RBC) [Mass/Vol] 32.9 g/dL Normal 29.9-35.2 [facility] Comment on above: Performed By: #### C BC ####[facility] Gylhpjjdvg7[address] [place] [address]DrElizabeth Malone MCV (RBC) [Entitic vol] 89.8 fL Normal 80.0-94.0 [facility] Comment on above: Performed By: #### C BC ####[facility] Lgxetdvwsz7158 [place] [address]DrElizabeth Malone MONO # 0.4 103/ul Normal 0.3-0.8 [facility] Comment on above: Performed By: #### C BC ####[facility] Uzugdsoona4561 [place] [address]DrElizabeth Malone Monocytes/100 WBC (Bld) 6.7 % Normal 1.7-12.0 [facility] Comment on above: Performed By: #### C BC ####[facility] Vrhdkoschl9252 [place] [id number]. Donna Malone NEUT # 4.0 103/ul Normal 1.4-6.5 [facility] Comment on above: Performed By: #### C BC ####[facility] Vhrhzcdrmv8542 [place] [address]Dr. Donna Malone Neutrophils/100 WBC (Bld) 64.2 % Normal 43.0-75.0 [facility] Comment on above: Performed By: #### C BC ####[facility] Hbuxickxmy6555 [place] [address]Dr. Donna Malone Platelet mean volume (Bld) [Entitic vol] 11.3 fL Normal 9.5-13.5 [facility] Comment on above: Performed By: #### C BC ####[facility] Wgucwdddzx[address] [place], [place] [address]Dr. Donna Malone PLT 169 103/ul Normal 150-450 [facility] Comment on above: Performed By: #### C BC ####[facility] Khlagrmsqi[address] [place], [place] [address]Dr. Donna Malone RBC 4.10 106/ul Critically low 4.70-6.10 [facility] Comment on above: Performed By: #### C BC ####[facility] [address] [place], [place] [address]Dr. Donna Malone WBC 6.3 103/ul Normal 4.0-11.0 [facility] Comment on above: Performed By: #### C BC ####[facility] Ilheaqljfl8[address] [place], [place] [address]DrElizabeth Donna Malone GLYCOHEMOGLOBIN A1Con 2022 ADA RECOMMENDATION SEE BELOW Normal [facility] Comment on above: Result Comment: ADA RECOMMENDED LIMIT 4.0 - 6.0 ADA THERAPEUTIC TARGET < 7.0 ACTION SUGGESTED > 7.0 Performed By: #### A 1C ####[facility] Jwixkriihh30[address] [place] [address]Dr. Donna Malone Glucose [Mass/Vol] 128 mg/dL Normal [facility] Comment on above: Performed By: #### A 1C ####[facility] Shsbyzrcgr9454 [place] [address]Dr. Donna Malone HbA1c (Bld) [Mass fraction] 6.1 % Normal 4.5-6.2 [facility] Comment on above: Performed By: #### A 1C ####[facility] Vwgjmmdjer3792 [place] [address]Dr. Donna Malone MAGNESIUMon 11-15-2022 Magnesium [Mass/Vol] 1.6 mg/dL Critically low 1.8-2.4 [facility] Comment on above: Performed By: #### C MP, MG ####[facility] Gehegrgcbs2819 [place] [address]Dr. Donna Malone POINT OF CARE GLUCOSEon Glucose [Mass/Vol] 165 mg/dL Critically high 74-106 [facility] Comment on above: Performed By: #### P OCGLUC ####[facility] Iebbldparg5618 [place] [address]Dr. Donna Malone Glucose [Mass/Vol] 155 mg/dL Critically high 74-106 [facility] Comment on above: Performed By: #### P OCGLUC ####[facility] Chnktbkxlo6683 [place] [address]Dr. Donna Malone Glucose [Mass/Vol] 111 mg/dL Critically high 74-106 [facility] Comment on above: Performed By: #### P OCGLUC ####[facility] Jtzrzulgqi5209 [place] [address]Dr. Donna Malone PROF 14(COMP METB)on 023 Albumin [Mass/Vol] 2.9 g/dL Critically low 3.4-5.0 [facility] Comment on above: Performed By: #### C MP, MG ####[facility] Hwzwnmsnbi9463 [place] [address]Dr. Rubyyvan Malone Albumin/Globulin [Mass ratio] 1.0 {ratio} Normal [facility] Comment on above: Performed By: #### C MP, MG ####[facility] Hourdmcugp4305 [place] [address]Dr. Donna Malone ALP [Catalytic activity/Vol] 38 U/L Critically low 46-116 [facility] Comment on above: Performed By: #### C MP, MG ####[facility] Dgjohnjkur7773 [place] [address]Dr. Donna Malone ALT [Catalytic activity/Vol] 13 U/L Critically low 16-63 [facility] Comment on above: Performed By: #### C MP, MG ####[facility] Qzujlxglru0919 [place] [address]Dr. Donna Malone Anion gap [Moles/Vol] 11.8 mmol/L Normal [facility] Comment on above: Performed By: #### C MP, MG ####[facility] Wwzlphwmed2257 [place] [address]Dr. Donna Malone AST [Catalytic activity/Vol] 15 U/L Normal 15-37 [facility] Comment on above: Performed By: #### C MP, MG ####[facility] Kylifplsvr1413 [place] [address]Dr. Donna Faisal Bilirubin [Mass/Vol] 0.4 mg/dL Normal 0.2-1.0 [facility] Comment on above: Performed By: #### C MP, MG ####[facility] Xhnhkvqxbw8537 [place] [address]Dr. Donna Faisal Calcium [Mass/Vol] 8.2 mg/dL Critically low 8.5-10.1 [facility] Comment on above: Performed By: #### C MP, MG ####[facility] Gxsnlszlpl3035 [place] [address]Dr. Rubyyvan Faisal Chloride [Moles/Vol] 111 mmol/L Critically high 98-107 [facility] Comment on above: Performed By: #### C MP, MG ####[facility] Bdnvnprufd8232 [place] [address]Dr. Donna Malone CO2 [Moles/Vol] 27.9 mmol/L Normal 21.0-32.0 [facility] Comment on above: Performed By: #### C MP, MG ####[facility] Nguotzojdg1408 [place] [address]Dr. Donna Malone Creatinine [Mass/Vol] 0.99 mg/dL Normal 0.70-1.30 [facility] Comment on above: Performed By: #### C MP, MG ####[facility] Sbzwqonmcj2037 [place] [address]Dr. Donna Malone EGFR-AF SLOVAK >60 Normal >=60 [facility] Comment on above: Performed By: #### C MP, MG ####[facility] Hfdbflsssy0427 [place] [address]Dr. Donna Faisal EGFR-NON AF SLOVAK >60 Normal >=60 [facility] Comment on above: Performed By: #### C MP, MG ####[facility] Xghgvcalot[address] [place], [place] [address]Dr. Donna Malone Globulin (S) [Mass/Vol] 2.9 g/dL Normal [facility] Comment on above: Performed By: #### C MP, MG ####[facility] Tjsrlnkbmq16[address] [place], [place] [address]Dr. Donna Malone Glucose [Mass/Vol] 88 mg/dL Normal 74-106 [facility] Comment on above: Performed By: #### C MP, MG ####[facility] Vuuhiutsif[address] [place], [place] [address]Dr. Donna Malone Potassium [Moles/Vol] 3.7 mmol/L Normal 3.5-5.1 [facility] Comment on above: Performed By: #### C MP, MG ####[facility] Rhcegzgdkb3186 [place] [address]Dr. Donna Malone Protein [Mass/Vol] 5.8 g/dL Critically low 6.4-8.2 [facility] Comment on above: Performed By: #### C MP, MG ####[facility] Psseobkljq3550 [place] [address]Dr. Donna Malone Sodium [Moles/Vol] 147 mmol/L Critically high 136-145 T [facility] Comment on above: Performed By: #### C MP, MG ####[facility] Asljebzjeg5787 [place] [address]Dr. Donna Malone Urea nitrogen [Mass/Vol] 12.0 mg/dL Normal 7.0-18.0 [facility] Comment on above: Performed By: #### C MP, MG ####[facility] Ixbwrufghg75[address] [place], [place] [address]Dr. Donna Malone Urea nitrogen/Creatinine [Mass ratio] 12.1 mg/mg Normal [facility] Comment on above: Performed By: #### C MP, MG ####[facility] Xagfauxeja2628[address] [place], [place] [address]Dr. Donna Malone ACETONE SERUMon 11-14-2022 ACETONE Negative Normal NEGATIVE [facility] Comment on above: Performed By: #### A CETON ####[facility] Inrahvvyvn7164[address] [place], [place] [address]Dr. Donna Malone AMMONIAon 11-14-2022 Ammonia (P) [Moles/Vol] 17 umol/L Normal 11-32 [facility] Comment on above: Performed By: #### A MM ####[facility] Ipujglhstx367[address] [place], [place] [address]Dr. Donna Malone BLOOD GASES BTYon 11-14-2022 02 MODE ROOM AIR Normal [facility] Comment on above: Performed By: #### A BG ####[facility] Evjifhsqmq5454[address] [place], [place] [address]Dr. Donna Malone ALLENS TEST Positive Normal [facility] Comment on above: Performed By: #### A BG ####[facility] Rhqsilhlju6823[address] [place], [place] [address]Dr. Donna Malone Base excess Calc (Bld) [Moles/Vol] 1.1 mmol/L Normal -2.0-2.0 [facility] Comment on above: Performed By: #### A BG ####[facility] Pryiquvuno36[address] [place], [place] [address]Dr. Donna Malone BIPAP PRESSURE Normal [facility] Comment on above: Performed By: #### A BG ####[facility] Wvvfyomybu3792 [place] [address]Dr. Donna Malone CPAP Normal [facility] Comment on above: Performed By: #### A BG ####[facility] Zxzzlzvoid7867 [place] [address]Dr. Donna Malone FIO2 Normal [facility] Comment on above: Performed By: #### A BG ####[facility] Akftmdhuty1267[address] [place], [place] [address]Dr. Donna Malone HCO3 (Bld) [Moles/Vol] 26.0 mmol/L Normal 22.0-26.0 [facility] Comment on above: Performed By: #### A BG ####[facility] Tzhjvixpnk9598[address] [place], [place] [address]Dr. Donna Malone L[facility] Comment on above: Performed By: #### A BG ####[facility] Sdidkuikdu8480[address] [place], [place] [address]Dr. Donna Malone MINUTE VOLUME Normal [facility] Comment on above: Performed By: #### A BG ####[facility] Rukwmfbrvc68[address] [place], [place] [address]Dr. Donna Malone Oxygen (Bld) [Partial pressure] 62.0 mm[Hg] Critically low 80.0-100.0 [facility] Comment on above: Performed By: #### A BG ####[facility] Fmkmewkepo61[address] [place], [place] [address]Dr. Donna Malone Oxygen saturation in Blood 91.9 % Critically low 95.0-100.0 [facility] Comment on above: Performed By: #### A BG ####[facility] Tdtmyvuitu6426[address] [place], [place] [address]Dr. Donna Malone PCO2 42.8 mmHg Normal 35.0-45.0 [facility] Comment on above: Performed By: #### A BG ####[facility] Sbizfqelwz1834[address] [place], [place] [address]Dr. Donna Malone PEEP [facility] Comment on above: Performed By: #### A BG ####[facility] Iwpcllbdph4485 [place] [address]Dr. Donna Malone pH (Bld) 7.392 [pH] Normal 7.350-7.45 0 [facility] Comment on above: Performed By: #### A BG ####[facility] Tmltenxvan3074 [place] [address]Dr. Donna Malone PIP [place] [facility] Comment on above: Performed By: #### A BG ####[facility] Kqsrajjbzj8[address] [place], [place] [address]Dr. Donna Malone PS [facility] Comment on above: Performed By: #### A BG ####[facility] Quoyqsdoon1005[address] [place], [place] [address]Dr. Donna Malone PUNCTURE SITE LR [facility] Comment on above: Performed By: #### A BG ####[facility] Aeuuqvnzrt[address] [place], [place] [address]Dr. Donna Malone RATE [facility] Comment on above: Performed By: #### A BG ####[facility] Cloeizngik[address] [place], [place] [address]Dr. Donna Malone VENT MODE [facility] Comment on above: Performed By: #### A BG ####[facility] Zrissfznvr3024[address] [place], [place] [address]Dr. Donna Malone [place] [facility] Comment on above: Performed By: #### A BG ####[facility] Odxiykqaze212[address] [place], [place] [address]Dr. Donna Malone BNPon 11-14-2022 Natriuretic peptide B (Bld) [Mass/Vol] 148.0 pg/mL Normal <=900.0 [facility] Comment on above: Performed By: #### B TOWING PILOT, CMP, HSTROPN ####[facility] Blhldbnumc77[address] [place], [place] [address]Dr. Donna Malone CBC AUTO DIFFon 11-14-2022 BASO # 0.0 103/ul Normal 0.0-0.1 [facility] Comment on above: Performed By: #### C BC ####[facility] Izuxuzynzo[address] [place], [place] [address]Dr. Donna Malone Basophils/100 WBC (Bld) 0.5 % Normal 0.2-2.0 [facility] Comment on above: Performed By: #### C BC ####[facility] Vnmxficwyn[address] [place], [place] [address]Dr. Donna Malone EO # 0.1 103/ul Normal 0.0-0.7 [facility] Comment on above: Performed By: #### C BC ####[facility] Wozehpeite[address] [place], [place] [address]Dr. Donna Malone Eosinophils/100 WBC (Bld) 0.6 % Critically low 0.9-7.0 [facility] [facility] Comment on above: Performed By: #### C BC ####[facility] Wigdlfimfg[address] [place], [place] [address]Dr. Donna Malone Erythrocyte distribution width (RBC) [Ratio] 14.8 % Normal 11.0-15.0 [facility] Comment on above: Performed By: #### C BC ####[facility] Zpsztdxhne[address] [place], [place] [address]Dr. Donna Malone Hematocrit (Bld) [Volume fraction] 41.9 % Critically low 42.0-54.0 [facility] Comment on above: Performed By: #### C BC ####[facility] Maaahwkolr[address] [place], [place] [address]Dr. Donna Malone Hemoglobin (Bld) [Mass/Vol] 13.6 g/dL Critically low 14.0-18.0 [facility] Comment on above: Performed By: #### C BC ####[facility] Cymuxfwqsf77[address] [place], [place] [address]Dr. Donna Malone IG # 0.01 10e3/ul Normal 0.00-0.03 [facility] Comment on above: Performed By: #### C BC ####[facility] Bapzaklmww[address] [place], [place] [address]Dr. Donna Malone IG % 0.1 % Normal 0.0-0.5 [facility] Comment on above: Performed By: #### C BC ####[facility] [address]qv[address] [place] [id number]. Donna Malone LYMPH # 1.7 103/ul Normal 1.2-3.8 [facility] Comment on above: Performed By: #### C BC ####[facility] Elesftuuqr9486 [place] [id number]. Donna Faisal Lymphocytes/100 WBC (Bld) 21.2 % Normal 20.5-60.0 [facility] Comment on above: Performed By: #### C BC ####[facility] Nrbmdqfukk33[address] [place] [address]Dr. Rubyyvan Malone MANUAL DIFF REQ NO Normal [facility] Comment on above: Performed By: #### C BC ####[facility] Lauztyldhz[address] [place], [place] [address]Dr. Donna Faisal MCH (RBC) [Entitic mass] 29.2 pg Normal 25.9-34.0 [facility] Comment on above: Performed By: #### C BC ####[facility] Dfwdxsziiu8[address] [place], [place] [address]Dr. Donna Malone MCHC (RBC) [Mass/Vol] 32.5 g/dL Normal 29.9-35.2 [facility] Comment on above: Performed By: #### C BC ####[facility] Waddjrpwco4[address] [place] [address]Dr. Donna Faisal MCV (RBC) [Entitic vol] 90.1 fL Normal 80.0-94.0 [facility] Comment on above: Performed By: #### C BC ####[facility] Czhrzqnbpo[address] [place], [place] [address]Dr. Donna Malone MONO # 0.4 103/ul Normal 0.3-0.8 [facility] Comment on above: Performed By: #### C BC ####[facility] Uveufqimoq[address] [place], [place] [address]Dr. Donna Faisal Monocytes/100 WBC (Bld) 5.5 % Normal 1.7-12.0 [facility] Comment on above: Performed By: #### C BC ####[facility] Wixthmnxos0286 [place] [id number]. Donna Malone NEUT # 5.7 103/ul Normal 1.4-6.5 [facility] Comment on above: Performed By: #### C BC ####[facility] Mtmaflbhjd1758 [place] [phone]. Donna Malone Neutrophils/100 WBC (Bld) 72.1 % Normal 43.0-75.0 [facility] Comment on above: Performed By: #### C BC ####[facility] Ropgnlvmhj9991 [place] [address]Dr. Donna Malone Platelet mean volume (Bld) [Entitic vol] 11.5 fL Normal 9.5-13.5 [facility] Comment on above: Performed By: #### C BC ####[facility] Sfjubszroi38[address] [place] [address]Dr. Donna Malone PLT 193 103/ul Normal 150-450 [facility] Comment on above: Performed By: #### C BC ####[facility] Bdbjxfvpdg1048 [place] [phone]. Donna Malone RBC 4.65 106/ul Critically low 4.70-6.10 [facility] Comment on above: Performed By: #### C BC ####[facility] Xvlqzobteg5005 [place] [address]Dr. Donna Malone WBC 7.9 103/ul Normal 4.0-11.0 [facility] Comment on above: Performed By: #### C BC ####[facility] Ymkgshupxr[address] [place], [place] [address]Dr. Donna Malone CT HEAD WO CONon 11-14-2022 CT HEAD WO CON Normal [facility] CULTURE BLOODon 11-14-2022 Microscopic examination of blood, culture Culture Observations: NO GROWTH AT 5 DAYS. Normal [facility] Comment on above: Performed By: #### B LDCX2 ####[facility] Hioodpjhhr99[address] [place], [place] [address]Dr. Donna Malone Microscopic examination of blood, culture Culture Observations: NO GROWTH AT 5 DAYS. Normal [facility] Comment on above: Performed By: #### B LDCX1 ####[facility] Hrqkayqaii8346 [place] [phone]. Donna Malone Covid-19 PCR ([facility])on SARS-CoV-2 (COVID-19) RNA JOSÉ MIGUEL+probe Ql (Unsp spec) Not detected Normal NOT DETECTED [facility] Comment on above: Result Comment: When [...] for this test is supported by the Cable Installer Repairer of Health and Human Service's declaration that [...] be used). Performed By: #### C VDTBH ####[facility] Djhagszcwg0842 [place] [phone]. Donna Malone DRUG SCREEN RAPID (URINE)on 11-14-2022 AMP Negative Normal NEGATIVE [facility] Comment on above: Performed By: #### D SHARONA ERUR ####[facility] Qlnipigehh8404 [place] [phone]. Donna Malone BAR Negative Normal NEGATIVE [facility] Comment on above: Performed By: #### D SHARONA ERUR ####[facility] Pbwiowuern5777 [place] [address]Dr. Donna Malone BUP Negative Normal NEGATIVE [facility] Comment on above: Performed By: #### D SHARONA ERUR ####[facility] Ecdwwldrfm8028 [place] [address]Dr. Donna Malone BZO Negative Normal NEGATIVE [facility] Comment on above: Performed By: #### Calvin TABOR, ERUR ####[facility] Itdrjvomkd250[address] [place], [place] [address]Dr. Donna Malone EVONNE Negative Normal NEGATIVE [facility] Comment on above: Performed By: #### Calvin TABOR, ERUR ####[facility] Bgsepxwhwr64[address] [place], [place] [address]Dr. Donna Malone CUT-OFFS SEE BELOW Normal [facility] Comment on above: Result Comment: AMP (Amphetamine): 500ng/mL, BAR (Barbituates): 200 ng/mL, BZO (Benzodiazepines): 150 ng/mL, BUP (Buprenorphine): 10 ng/mL, EVONNE (Cocaine): 150 ng/mL, mAMP (Methamphetamine): 500 ng/mL, MTD (Methadone): 200 ng/mL, OPI (Opiates): 100 ng/mL, OXY (Oxycodone): 100 ng/mL, PCP (Phencyclidine): 25 ng/mL, PPX (Propoxyphene): 300 ng/mL, THC (Cannabinoids): 50 ng/mL, TCA (Trycyclic Antidepressants): 300 ng/mL Performed By: #### WESLY LAUR ####[facility] Qaabnsaiah[address] [place], [place] [address]Dr. Donna Malone DRUG CUT HEADER DRUG CLASS TEST SYST EM CUT-OFF CONCENTRATIONS ARE FOLLOWS: Normal [facility] Comment on above: Performed By: #### WESLY LAUR ####[facility] Ogsvhcrybd[address] [place], [place] [address]Dr. Donna Malone mAMP Negative Normal NEGATIVE [facility] Comment on above: Performed By: #### Calvin TABOR ERUR ####[facility] Dunblxhfua6[address] [place], [place] [address]Dr. Donna Malone MTD Negative Normal NEGATIVE [facility] Comment on above: Performed By: #### Calvin TABOR, ERUR ####[facility] Vdrdcmccjv3[address] [place], [place] [address]Dr. Donna Malone OPI Negative Normal NEGATIVE [facility] Comment on above: Performed By: #### D SHARONA, ERUR ####[facility] Ebjwienhxf[address] [place] [address]Dr. Donna Malone OXY Negative Normal NEGATIVE [facility] Comment on above: Performed By: #### Calvin TABOR, ERUR ####[facility] Atqehmtnjn9084 [place] [address]Dr. Donna Malone PCP Negative Normal NEGATIVE [facility] Comment on above: Performed By: #### Calvin TABOR, ERUR ####[facility] Hhlcpbvpjt8979 [place] [address]Dr. Donna Malone PPX Negative Normal NEGATIVE [facility] Comment on above: Performed By: #### Calvin TABOR, ERUR ####[facility] Ckvdebhdaz6620 [place] [address]Dr. Donna Malone TCA Positive Abnormal NEGATIVE [facility] Comment on above: Performed By: #### Calvin TABOR, ERUR ####[facility] Ccirrwciwd8[address] [place], [place] [address]Dr. Donna Malone THC Negative Normal NEGATIVE [facility] Comment on above: Performed By: #### Calvin TABOR, ERUR ####[facility] Khlezkxycu8[address] [place], [place] [address]Dr. Donna Malone ER URINE PROFILEon 3 Bilirubin Ql (U) MODERATE Abnormal NEGATIVE [facility] Comment on above: Performed By: #### Calvin TABOR, ERUR ####[facility] Mnhmydstcj[address] [place] [address]Dr. Donna Malone Clarity (U) CLEAR Normal CLEAR [facility] Comment on above: Performed By: #### Calvin TABOR, ERUR ####[facility] Tamltyyoul[address] [place] [address]Dr. Donna Malone Color (U) DK. YELLOW Normal YELLOW [facility] Comment on above: Performed By: #### Calvin TABOR, ERUR ####[facility] Snqaejzuhz6107 [place] [address]Dr. Donna ARCE A micrscopic examina tion will be performed if indicated. Normal [facility] Comment on above: Performed By: #### Calvin TABOR, ERUR ####[facility] Ksovdhudqm[address] [place], [place] [address]Dr. Donna Malone Glucose Ql (U) Negative Normal NEGATIVE [facility] Comment on above: Performed By: #### Calvin TABOR, ERUR ####[facility] Dnctwoanrl[address] [place], [place] [address]Dr. Donna Malone Hemoglobin Ql (U) Negative Normal NEGATIVE [facility] Comment on above: Performed By: #### Calvin TABOR, ERUR ####[facility] Wtfazzxdgz[address] [place], [place] [address]Dr. Donna Faisal Ketones Ql (U) 40 mg/dl Abnormal NEGATIVE [facility] Comment on above: Performed By: #### Calvin TABOR, ERUR ####[facility] Xgaafxtdxf56[address] [place], [place] [address]Dr. Donna Malone LEUKOCYTES Negative Normal NEGATIVE [facility] Comment on above: Performed By: #### Calvin TABOR, ERUR ####[facility] Rlkebsgrca8[address] [place], [place] [address]Dr. Donna Malone Nitrite Ql (U) Negative Normal NEGATIVE [facility] Comment on above: Performed By: #### Calvin TABOR, ERUR ####[facility] Ebxewzoscb[address] [place], [place] [address]Dr. Rubyyvan Malone pH (U) 6.0 [pH] Normal 5-9 [facility] Comment on above: Performed By: #### Calvin TABOR, ERUR ####[facility] Rlugrtrimx6[address] [place], [place] [address]Dr. Donna Malone SPEC GRAVITY 1.030 Abnormal 1.005-<=1. 025 [facility] Comment on above: Performed By: #### Calvin TABOR, ERUR ####[facility] Kzqlgzeqtk[address] [place], [place] [address]Dr. Donna Malone UA PROTEIN TRACE Normal NEGATIVE/ TRACE [facility] Comment on above: Performed By: #### Calvin TABOR, ERUR ####[facility] Aecoewzbru[address] [place] [address]Dr. Donna Malone UR MICRO IND NOT INDICATED Normal [facility] Comment on above: Performed By: #### D WESLY TABORR ####[facility] Voytvrjurq0764 [place] [address]Dr. Donna Malone Urobilinogen Qn (U) 1.0 {Jermain'U}/dL Normal 0.2 - 1. 0 [facility] Comment on above: Performed By: #### D WESLY TABORR ####[facility] Ftnbeqmgmk9261 [place] [address]Dr. Donna Malone LACTATE/LACTIC ACIDon 2022 Lactate [Moles/Vol] 1.6 mmol/L Normal 0.4-1.9 [facility] Comment on above: Performed By: #### L ACT ####[facility] Bjxsmguhye5184 [place] [address]Dr. Donna Malone PROF 14(COMP METB)on 023 Albumin [Mass/Vol] 3.4 g/dL Normal 3.4-5.0 [facility] Comment on above: Performed By: #### B TOWING PILOT, CMP, HSTROPN ####[facility] Ohxothuhwi0765 [place] [address]Dr. Donna Malone Albumin/Globulin [Mass ratio] 1.0 {ratio} Normal [facility] Comment on above: Performed By: #### B TOWING PILOT, CMP, HSTROPN ####[facility] Sxzwrkjxno8953 [place] [address]Dr. Donna Malone ALP [Catalytic activity/Vol] 48 U/L Normal 46-116 [facility] Comment on above: Performed By: #### B TOWING PILOT, CMP, HSTROPN ####[facility] Bpcnwgjbza8970 [place] [address]Dr. Donna Malone ALT [Catalytic activity/Vol] 13 U/L Critically low 16-63 [facility] Comment on above: Performed By: #### B TOWING PILOT, CMP, HSTROPN ####[facility] Cfemlebnni0888 [place] [address]Dr. Donna Malone Anion gap [Moles/Vol] 13.2 mmol/L Normal Th e [facility] Comment on above: Performed By: #### B TOWING PILOT, CMP, HSTROPN ####[facility] Jthflhwrho4902 [place] [address]Dr. Donna Malone AST [Catalytic activity/Vol] 13 U/L Critically low 15-37 [facility] Comment on above: Performed By: #### B TOWING PILOT, CMP, HSTROPN ####[facility] Psdkfgyxup5211 [place] [address]Dr. Donna Malone Bilirubin [Mass/Vol] 0.4 mg/dL Normal 0.2-1.0 [facility] Comment on above: Performed By: #### B TOWING PILOT, CMP, HSTROPN ####[facility] Jrtnbflvnc3655 [place] [address]Dr. Donna Malone Calcium [Mass/Vol] 9.2 mg/dL Normal 8.5-10.1 [facility] Comment on above: Performed By: #### B TOWING PILOT, CMP, HSTROPN ####[facility] Mvfyhdttga2319 [place] [address]Dr. Rubyyvan Mlaone Chloride [Moles/Vol] 108 mmol/L Critically high 98-107 [facility] Comment on above: Performed By: #### B TOWING PILOT, CMP, HSTROPN ####[facility] Tqamotgwqk6157 [place] [address]Dr. Donna Malone CO2 [Moles/Vol] 27.0 mmol/L Normal 21.0-32.0 [facility] Comment on above: Performed By: #### B TOWING PILOT, CMP, HSTROPN ####[facility] Konvpyrvmd[address] [place], [place] [address]Dr. Donna Malone Creatinine [Mass/Vol] 1.14 mg/dL Normal 0.70-1.30 [facility] Comment on above: Performed By: #### B TOWING PILOT, CMP, HSTROPN ####[facility] Mbexfwlyhs[address] [place], [place] [address]Dr. Donna Malone EGFR-AF SLOVAK >60 Normal >=60 [facility] Comment on above: Performed By: #### B TOWING PILOT, CMP, HSTROPN ####[facility] Aswakbkwib19[address] [place] [address]Dr. Donna Malone EGFR-NON AF [place]OVAK >60 Normal >=60 [facility] Comment on above: Performed By: #### B TOWING PILOT, CMP, HSTROPN ####[facility] Igwjkgbchw0759 [place] [address]Dr. Donna Malone Globulin (S) [Mass/Vol] 3.5 g/dL Normal [facility] Comment on above: Performed By: #### B TOWING PILOT, CMP, HSTROPN ####[facility] Fwhlsqcjkz5248 [place] [address]Dr. Donna Malone Glucose [Mass/Vol] 126 mg/dL Critically high 74-106 [facility] Comment on above: Performed By: #### B TOWING PILOT, CMP, HSTROPN ####[facility] Fnwstbazuq8804 [place] [address]Dr. Donna Malone Potassium [Moles/Vol] 4.2 mmol/L Normal 3.5-5.1 [facility] Comment on above: Performed By: #### B TOWING PILOT, CMP, HSTROPN ####[facility] Ghzuwrammd4619 [place] [address]Dr. Donna Malone Protein [Mass/Vol] 6.9 g/dL Normal 6.4-8.2 [facility] Comment on above: Performed By: #### B TOWING PILOT, CMP, HSTROPN ####[facility] Axdndnfgkm7772 [place] [address]Dr. Donna Malone Sodium [Moles/Vol] 144 mmol/L Normal 136-145 [facility] Comment on above: Performed By: #### B TOWING PILOT, CMP, HSTROPN ####[facility] Filasfmaoo9738 [place] [address]Dr. Donna Malone Urea nitrogen [Mass/Vol] 17.0 mg/dL Normal 7.0-18.0 [facility] Comment on above: Performed By: #### B TOWING PILOT, CMP, HSTROPN ####[facility] Smmsurwsrf7878 [place], [place] [address]Wb. Donna Malone Urea nitrogen/Creatinine [Mass ratio] 14.9 mg/mg Normal [facility] Comment on above: Performed By: #### B TOWING PILOT, CMP, HSTROPN ####[facility] Gkxcquhves2706 [place], [place] [address]Dd. Donna Malone TROPONIN, HIGH SENSITIVITYon 11-14-2022 HSTROP 11.2 pg/mL Normal 4.0-76.1 [facility] Comment on above: Result Comment: CUT- OFF POINTS HAVE BEEN ESTABLISHED BASED ON THE FOURTH UNIVERSAL DEFINITIONS OF MYOCARDIALINFARCTION. THE UPPER REFERENCE LIMIT (URL) OF TROPONIN, DEFINED THE 99TH PERCENTILE OFcTnI DISTRIBUTION IN A REFERENCE POPULATION, HAS BEEN CONFIRMED THE DECISION THRESHOLDFOR NV DIAGNOSIS. Performed By: #### B TOWING PILOT, CMP, HSTROPN ####[facility] Hamtktzvvs34[address] [place] [phone]. Donna Malone XR CHEST 1 Von 11-14-2022 XR CHEST 1 V Normal [facility] XR lumbar spine AP/LAT/FLX/E XTon 11-01-2022 XR lumbar spine AP/LAT/FLX/EXT [facility] [place] [address] XRay Report Signed Patient: Taylor Mcclellan SR MR#: [id number] : 1955 Acct:[id number] Age/Sex: 67 / M ADM Date: 11/01/22 Loc: XD Room: Type: [facility] Attending Dr: Benson Lane MD Copies [...] Mj Rodriguez M.D.11/01/2022 3:07 PM Dictation Location: [place] [address] Transcribed By: [facility] 11/01/22 1507 Dictated By: Mj Rodriguez II, MD 11/01/22 1505 Signed By: 11/01/[address] [facility] ER URINE PROFILEon 3 Bilirubin Ql (U) Negative Normal NEGATIVE [facility] Comment on above: Performed By: #### E RUR ####[facility] Ydmheivhnr[address] [place], [place] [address]Dr. Donna Malone Clarity (U) CLEAR Normal CLEAR [facility] Comment on above: Performed By: #### E RUR ####[facility] Bafpjyjiuv32[address] [place] [address]Dr. Donna Malone Color (U) YELLOW Normal YELLOW [facility] Comment on above: Performed By: #### E RUR ####[facility] Dmevcrfsdf3530 [place] [address]Dr. Donna Malone ERUAHD A micrscopic examina tion will be performed if indicated. Normal [facility] Comment on above: Performed By: #### E RUR ####[facility] Cqroqfkbqx5865 [place] [address]Dr. Donna Malone Glucose Ql (U) 250 mg/dl Abnormal NEGATIVE [facility] Comment on above: Performed By: #### E RUR ####[facility] Efvsvrhndz65[address] [place], [place] [address]Dr. Donna Malone Hemoglobin Ql (U) TRACE-INTACT Abnormal NEGATIVE [facility] Comment on above: Performed By: #### E RUR ####[facility] Pyowwjluda[address] [place], [place] [address]Dr. Rubyyvan Faisal Ketones Ql (U) Negative Normal NEGATIVE [facility] Comment on above: Performed By: #### E RUR ####[facility] Hwwtdlypmf[address] [place], [place] [address]Dr. Donna Malone LEUKOCYTES Negative Normal NEGATIVE [facility] Comment on above: Performed By: #### E RUR ####[facility] Cbjyozeuml[address] [place], [place] [address]Dr. Donna Malone Nitrite Ql (U) Negative Normal NEGATIVE [facility] Comment on above: Performed By: #### E RUR ####[facility] Jwbknpmicg6[address] [place], [place] [address]Dr. Donna Malone pH (U) 5.5 [pH] Normal 5-9 [facility] Comment on above: Performed By: #### E RUR ####[facility] Wegggoavcw1310[address] [place], [place] [address]Dr. Donna Malone SPEC GRAVITY 1.025 Normal 1.005-<=1. 025 [facility] Comment on above: Performed By: #### E RUR ####[facility] Dumubgzbir2[address] [place], [place] [address]Dr. Donna Malone UA PROTEIN Negative Normal NEGATIVE/ TRACE [facility] Comment on above: Performed By: #### E RUR ####[facility] Gfwcgfgvay7[address] [place], [place] [address]Dr. Donna Malone UR MICRO IND NOT INDICATED Normal [facility] Comment on above: Performed By: #### E RUR ####[facility] Kpivsbppmr[address] [place], [place] [address]Dr. Donna Malone Urobilinogen Qn (U) 0.2 {Jermain'U}/dL Normal 0.2 - 1. 0 [facility] Comment on above: Performed By: #### E RUR ####[facility] Lhvmzqvsjm3215 [place] [address]Dr. Donna Malone CBC AUTO DIFFon 10-26-2022 BASO # 0.0 103/ul Normal 0.0-0.1 [facility] Comment on above: Performed By: #### C BC ####[facility] Zecsfeombm5[address] [place], [place] [address]Dr. Donna Malone Basophils/100 WBC (Bld) 0.4 % Normal 0.2-2.0 [facility] Comment on above: Performed By: #### C BC ####[facility] Cuwfodarpt64[address] [place], [place] [address]Dr. Donna Malone EO # 0.0 103/ul Normal 0.0-0.7 [facility] Comment on above: Performed By: #### C BC ####[facility] Ibelhgadgz309[address] [place], [place] [address]Dr. Donna Malone Eosinophils/100 WBC (Bld) 0.0 % Critically low 0.9-7.0 [facility] Comment on above: Performed By: #### C BC ####[facility] Mjpkdlicow32[address] [place], [place] [address]Dr. Rubyyvan Malone Erythrocyte distribution width (RBC) [Ratio] 14.5 % Normal 11.0-15.0 [facility] Comment on above: Performed By: #### C BC ####[facility] Yraqqboian6920[address] [place], [place] [address]Dr. Donna Malone Hematocrit (Bld) [Volume fraction] 41.2 % Critically low 42.0-54.0 [facility] Comment on above: Performed By: #### C BC ####[facility] Vozmwkpzqh253[address] [place], [place] [address]Dr. Donna Malone Hemoglobin (Bld) [Mass/Vol] 13.7 g/dL Critically low 14.0-18.0 [facility] Comment on above: Performed By: #### C BC ####[facility] Azoutvmami66[address] [place], [place] [address]Dr. Donna Malone IG # 0.02 10e3/ul Normal 0.00-0.03 [facility] Comment on above: Performed By: #### C BC ####[facility] Qntwssgmhq6971 [place] [address]DrElizabeth Donna Malone IG % 0.2 % Normal 0.0-0.5 [facility] Comment on above: Performed By: #### C BC ####[facility] Xmywathoxc060[address] [place], [place] [address]DrElizabeth Donna Malone LYMPH # 1.2 103/ul Normal 1.2-3.8 [facility] Comment on above: Performed By: #### C BC ####[facility] Bpxjarzcvy38[address] [place], [place] [address]DrElizabeth Donna Malone Lymphocytes/100 WBC (Bld) 14.4 % Critically low 20.5-60.0 [facility] Comment on above: Performed By: #### C BC ####[facility] Gejrvvgsgs[address] [place], [place] [address]DrElizabeth Donna Malone MANUAL DIFF REQ NO Normal [facility] Comment on above: Performed By: #### C BC ####[facility] Phwkkzoich24[address] [place], [place] [address]DrElizabeth Donna Malone MCH (RBC) [Entitic mass] 29.4 pg Normal 25.9-34.0 [facility] Comment on above: Performed By: #### C BC ####[facility] Iulfguzobq[address] [place], [place] [address]DrElizabeth Donna Malone MCHC (RBC) [Mass/Vol] 33.3 g/dL Normal 29.9-35.2 [facility] Comment on above: Performed By: #### C BC ####[facility] Kvamiptetr[address] [place], [place] [address]DrElizabeth Donna Malone MCV (RBC) [Entitic vol] 88.4 fL Normal 80.0-94.0 [facility] Comment on above: Performed By: #### C BC ####[facility] Bojiuruscy[address] [place], [place] [address]DrElizabeth Donna Faisal MONO # 0.2 103/ul Critically low 0.3-0.8 [facility] Comment on above: Performed By: #### C BC ####[facility] Gefbvgxati[address] [place] [address]Dr. Donna Malone Monocytes/100 WBC (Bld) 2.5 % Normal 1.7-12.0 [facility] Comment on above: Performed By: #### C BC ####[facility] Ldnvuzeoub9[address] [place] [id number]. Donna Malone NEUT # 6.9 103/ul Critically high 1.4-6.5 [facility] Comment on above: Performed By: #### C BC ####[facility] Twzeqtddbo6078 [place] [address]Dr. Donna Malone Neutrophils/100 WBC (Bld) 82.5 % Critically high 43.0-75.0 [facility] Comment on above: Performed By: #### C BC ####[facility] Fooospcjqf7890 [place] [address]Dr. Donna Malone Platelet mean volume (Bld) [Entitic vol] 11.3 fL Normal 9.5-13.5 [facility] Comment on above: Performed By: #### C BC ####[facility] Ajbkqgjzzk[address] [place], [place] [address]Dr. Donna Malone PLT 241 103/ul Normal 150-450 [facility] Comment on above: Performed By: #### C BC ####[facility] Gvroopjpxh6424[address] [place], [place] [address]Dr. Donna Malone RBC 4.66 106/ul Critically low 4.70-6.10 [facility] Comment on above: Performed By: #### C BC ####[facility] Akoccoohcv[address] [place], [place] [address]Dr. Donna Malone WBC 8.4 103/ul Normal 4.0-11.0 [facility] Comment on above: Performed By: #### C BC ####[facility] Cnhkgktqyr[address] [place], [place] [address]Dr. Donna Malone CRPon 10-26-2022 CRP [Mass/Vol] mg/L Normal <=1.0 [facility] Comment on above: Performed By: #### C RP, BMP ####[facility] Plklrhfwwx[address] [place] [address]Dr. Donna Malone CT LSPINE WO CONon 3 CT LSPINE WO CON Normal [facility] PROF CHEM 8 (BAS METB)on Anion gap [Moles/Vol] 11.9 mmol/L Normal Th [facility] Comment on above: Performed By: #### C RP, BMP ####[facility] Gngcxsghzd9[address] [place] [address]Dr. Donna Malone Calcium [Mass/Vol] 9.1 mg/dL Normal 8.5-10.1 [facility] Comment on above: Performed By: #### C RP, BMP ####[facility] Hqrzvesnmd35[address] [place], [place] [address]Dr. Donna Malone Chloride [Moles/Vol] 104 mmol/L Normal 98-107 [facility] Comment on above: Performed By: #### C RP, BMP ####[facility] Vuiglszudp7830 [place] [address]Dr. Donna Malone CO2 [Moles/Vol] 26.3 mmol/L Normal 21.0-32.0 [facility] Comment on above: Performed By: #### C RP, BMP ####[facility] Udgkqqkqtk7705 [place] [address]Dr. Donna Malone Creatinine [Mass/Vol] 0.99 mg/dL Normal 0.70-1.30 [facility] Comment on above: Performed By: #### C RP, BMP ####[facility] Wszdzpfuon3891 [place] [address]Dr. Rubyyvan Faisal EGFR-AF SLOVAK >60 Normal >=60 [facility] Comment on above: Performed By: #### C RP, BMP ####[facility] Ceyyovtvyu3[address] [place] [address]Dr. Ruybyvan Faisal EGFR-NON AF SLOVAK >60 Normal >=60 [facility] Comment on above: Performed By: #### C RP, BMP ####[facility] Arffsmnkvl5023 [place] [address]Dr. Donna Malone Glucose [Mass/Vol] 152 mg/dL Critically high 74-106 T [facility] Comment on above: Performed By: #### C RP, BMP ####[facility] Tvatayiciq094[address] [place], [place] [address]Dr. Donna Malone Potassium [Moles/Vol] 4.2 mmol/L Normal 3.5-5.1 [facility] Comment on above: Performed By: #### C RP, BMP ####[facility] Hazudzasbn887[address] [place], [place] [address]Dr. Donna Malone Sodium [Moles/Vol] 138 mmol/L Normal 136-145 [facility] Comment on above: Performed By: #### C RP, BMP ####[facility] Wwmnlolarh2046[address] [place], [place] [address]Dr. Donna Malone Urea nitrogen [Mass/Vol] 12.0 mg/dL Normal 7.0-18.0 [facility] Comment on above: Performed By: #### C RP, BMP ####[facility] Yejlukhlbm4068[address] [place], [place] [address]Dr. Donna Malone Urea nitrogen/Creatinine [Mass ratio] 12.1 mg/mg Normal [facility] Comment on above: Performed By: #### C RP, BMP ####[facility] Igtzuhofld9850[address] [place], [place] [address]Dr. Donna Faisal SED RATE WESTERGRENon 2022 SED RATE 57 mm/hr Critically high <=20 [facility] Comment on above: Performed By: #### S EDR ####[facility] Tigbpxaxxk9875[address] [place], [place] [address]Dr. Donna Malone CBC AUTO DIFFon 10-25-2022 BASO # 0.0 103/ul Normal 0.0-0.1 [facility] Comment on above: Performed By: #### C BC ####[facility] Euiycuidjc8913[address] [place], [place] [address]Dr. Donna Malone Basophils/100 WBC (Bld) 0.4 % Normal 0.2-2.0 [facility] Comment on above: Performed By: #### C BC ####[facility] Gdavrbadxp7501 [place] [address]Dr. Donna Malone EO # 0.0 103/ul Normal 0.0-0.7 [facility] Comment on above: Performed By: #### C BC ####[facility] Dycsdaoato9566[address] [place], [place] [address]Dr. Donna Malone Eosinophils/100 WBC (Bld) 0.0 % Critically low 0.9-7.0 [facility] Comment on above: Performed By: #### C BC ####[facility] Nldbglaxxh1066[address] [place], [place] [address]Dr. Rubyyvan Malone Erythrocyte distribution width (RBC) [Ratio] 14.5 % Normal 11.0-15.0 [facility] Comment on above: Performed By: #### C BC ####[facility] Ugdvfaknzf813234 [address] [place], [place] [address]Dr. Rubyyvan Malone Hematocrit (Bld) [Volume fraction] 43.8 % Normal 42.0-54.0 [facility] Comment on above: Performed By: #### C BC ####[facility] Ncobpogdoa[address] [place], [place] [address]Dr. Donna Malone Hemoglobin (Bld) [Mass/Vol] 14.2 g/dL Normal 14.0-18.0 [facility] Comment on above: Performed By: #### C BC ####[facility] Enbdnjsgki007234 [address] [place], [place] [address]Dr. Donna Malone IG # 0.01 10e3/ul Normal 0.00-0.03 [facility] Comment on above: Performed By: #### C BC ####[facility] Kmunxoxeuv9938[address] [place], [place] [address]Dr. Rubyyvan Malone IG % 0.1 % Normal 0.0-0.5 [facility] Comment on above: Performed By: #### C BC ####[facility] Towsgqsakn5584[address] [place], [place] [address]DrElizabeth Malone LYMPH # 1.4 103/ul Normal 1.2-3.8 [facility] Comment on above: Performed By: #### C BC ####[facility] Sykialkfqt7[address] [place] [id number]. Donna Malone Lymphocytes/100 WBC (Bld) 17.1 % Critically low 20.5-60.0 [facility] Comment on above: Performed By: #### C BC ####[facility] Olhcbgdbus4239 [place] [address]DrElizabeth Malone MANUAL DIFF REQ NO Normal [facility] Comment on above: Performed By: #### C BC ####[facility] Koccrzbdrz0510 [place] [id number]. Donna Malone MCH (RBC) [Entitic mass] 29.1 pg Normal 25.9-34.0 [facility] Comment on above: Performed By: #### C BC ####[facility] Nkntrnwujo0197[address] [place], [place] [address]Dr. Donna Malone MCHC (RBC) [Mass/Vol] 32.4 g/dL Normal 29.9-35.2 [facility] Comment on above: Performed By: #### C BC ####[facility] Uoywqjboru5726[address] [place], [place] [address]Dr. Donna Malone MCV (RBC) [Entitic vol] 89.8 fL Normal 80.0-94.0 [facility] Comment on above: Performed By: #### C BC ####[facility] Ppldsldnam[address] [place], [place] [address]Dr. Donna Malone MONO # 0.3 103/ul Normal 0.3-0.8 [facility] Comment on above: Performed By: #### C BC ####[facility] Yzanzmvfsq5[address] [place], [place] [address]Dr. Donna Malone Monocytes/100 WBC (Bld) 4.1 % Normal 1.7-12.0 [facility] Comment on above: Performed By: #### C BC ####[facility] Foomgjnnmn8895[address] [place], [place] [address]DrElizabeth Malone NEUT # 6.3 103/ul Normal 1.4-6.5 [facility] Comment on above: Performed By: #### C BC ####[facility] Lhepobmvyq4413 [place] [address]Dr. Donna Malone Neutrophils/100 WBC (Bld) 78.3 % Critically high 43.0-75.0 [facility] Comment on above: Performed By: #### C BC ####[facility] Kowclxnpjh9038 [place] [address]Dr. Donna Malone Platelet mean volume (Bld) [Entitic vol] 11.3 fL Normal 9.5-13.5 [facility] Comment on above: Performed By: #### C BC ####[facility] Uxgkxaejgq10[address] [place], [place] [address]Dr. Donna Faisal PLT 271 103/ul Normal 150-450 [facility] Comment on above: Performed By: #### C BC ####[facility] Orvvdzffaq0228[address] [place], [place] [address]Dr. Rubyyvan Faisal RBC 4.88 106/ul Normal 4.70-6.10 [facility] Comment on above: Performed By: #### C BC ####[facility] Uuprcarufp8229[address] [place], [place] [address]Dr. Donna Malone WBC 8.0 103/ul Normal 4.0-11.0 [facility] Comment on above: Performed By: #### C BC ####[facility] Izvfjjxzvk[address] [place], [place] [address]Dr. Donna Faisal ER URINE PROFILEon 3 Bilirubin Ql (U) Negative Normal NEGATIVE [facility] Comment on above: Performed By: #### E RUR ####[facility] Rcmaaknuea4626[address] [place], [place] [address]Dr. Donna Malone Clarity (U) CLEAR Normal CLEAR [facility] Comment on above: Performed By: #### E RUR ####[facility] Himhoopojz8969 [place] [address]Dr. Donna Malone Color (U) YELLOW Normal YELLOW [facility] Comment on above: Performed By: #### E RUR ####[facility] Zgagabsybk6296 [place] [address]Dr. Donna Malone ERUAHD A micrscopic examina tion will be performed if indicated. Normal [facility] Comment on above: Performed By: #### E RUR ####[facility] Clrbixnzqj239[address] [place], [place] [address]Dr. Donna Malone Glucose Ql (U) 100 mg/dl Abnormal NEGATIVE [facility] Comment on above: Performed By: #### E RUR ####[facility] Gyhdwtymwu4957[address] [place], [place] [address]Dr. Donna Malone Hemoglobin Ql (U) Negative Normal NEGATIVE [facility] Comment on above: Performed By: #### E RUR ####[facility] Iclkhjxjyc5870[address] [place], [place] [address]Dr. Donna Faisal Ketones Ql (U) TRACE Abnormal NEGATIVE [facility] Comment on above: Performed By: #### E RUR ####[facility] Porkdopfly5533[address] [place], [place] [address]Dr. Donna Malone LEUKOCYTES Negative Normal NEGATIVE [facility] Comment on above: Performed By: #### E RUR ####[facility] Hapvujuddq2335[address] [place], [place] [address]Dr. Donna Faisal Nitrite Ql (U) Negative Normal NEGATIVE [facility] Comment on above: Performed By: #### E RUR ####[facility] Kpkhxjxtcd1875[address] [place], [place] [address]Dr. Rubyyvan Faisal pH (U) 6.0 [pH] Normal 5-9 [facility] Comment on above: Performed By: #### E RUR ####[facility] Mruslsaajb4314[address] [place], [place] [address]Dr. Donna Malone SPEC GRAVITY >=1.030 Abnormal 1.005-<=1. 025 [facility] Comment on above: Performed By: #### E RUR ####[facility] Vwqkuithls8367[address] [place], [place] [address]Dr. Donna Malone UA PROTEIN Negative Normal NEGATIVE/ TRACE [facility] Comment on above: Performed By: #### E RUR ####[facility] Gzjcqaefaq3722[address] [place], [place] [address]Dr. Donna Malone UR MICRO IND NOT INDICATED Normal [facility] Comment on above: Performed By: #### E RUR ####[facility] Fmbariojem5469[address] [place], [place] [address]Dr. Donna Malone Urobilinogen Qn (U) 0.2 {Jermain'U}/dL Normal 0.2 - 1. 0 [facility] Comment on above: Performed By: #### E RUR ####[facility] Dccxsebgje5309[address] [place], [place] [address]Dr. Donna Malone PROF CHEM 8 (BAS METB)on Anion gap [Moles/Vol] 16.4 mmol/L Normal [facility] Comment on above: Performed By: #### B MP ####[facility] Mpvrnotwwq5288[address] [place], [place] [address]Dr. Donna Malone Calcium [Mass/Vol] 9.4 mg/dL Normal 8.5-10.1 [facility] Comment on above: Performed By: #### B MP ####[facility] Npuveotacc9270[address] [place], [place] [address]Dr. Donna Malone Chloride [Moles/Vol] 103 mmol/L Normal 98-107 [facility] Comment on above: Performed By: #### B MP ####[facility] Hjlvsfdadr4979[address] [place], [place] [address]Dr. Donna Malone CO2 [Moles/Vol] 23.7 mmol/L Normal 21.0-32.0 [facility] Comment on above: Performed By: #### B MP ####[facility] Wyylfidavh876[address] [place], [place] [address]Dr. Donna Malone Creatinine [Mass/Vol] 1.12 mg/dL Normal 0.70-1.30 [facility] Comment on above: Performed By: #### B MP ####[facility] Rcqwdgosgm3169[address] [place], [place] [address]Dr. Donna Malone EGFR-AF SLOVAK >60 Normal >=60 [facility] Comment on above: Performed By: #### B MP ####[facility] Ubngnigxux4238 [place] [address]Dr. Donna Malone EGFR-NON AF SLOVAK >60 Normal >=60 [facility] Comment on above: Performed By: #### B MP ####[facility] Jzroknoody2364 [place] [address]Dr. Donna Malone Glucose [Mass/Vol] 170 mg/dL Critically high 74-106 T [facility] Comment on above: Performed By: #### B MP ####[facility] Itpvapnlwt9713[address] [place], [place] [address]Dr. Donna Malone Potassium [Moles/Vol] 4.1 mmol/L Normal 3.5-5.1 [facility] Comment on above: Performed By: #### B MP ####[facility] Isvhmyyrbz870[address] [place], [place] [address]Dr. Donna Malone Sodium [Moles/Vol] 139 mmol/L Normal 136-145 [facility] Comment on above: Performed By: #### B MP ####[facility] Ubphyofxkr7310[address] [place], [place] [address]Dr. Donna Malone Urea nitrogen [Mass/Vol] 9.0 mg/dL Normal 7.0-18.0 [facility] Comment on above: Performed By: #### B MP ####[facility] Asjmkpqdzb124[address] [place], [place] [address]Dr. Donna Malone Urea nitrogen/Creatinine [Mass ratio] 8.0 mg/mg Normal [facility] Comment on above: Performed By: #### B MP ####[facility] Qzcldymeyy6416[address] [place], [place] [address]Dr. Donna Malone ACETONE SERUMon 08-10-2022 ACETONE Negative Normal NEGATIVE [facility] Comment on above: Performed By: #### A CETON ####[facility] Fklephwvpg838[address] [place], [place] [address]Dr. Donna Malone CBC AUTO DIFFon 08-10-2022 BASO # 0.1 103/ul Normal 0.0-0.1 [facility] Comment on above: Performed By: #### C BC ####[facility] Xxstacdldd94[address] [place], [place] [address]Dr. Donna Malone Basophils/100 WBC (Bld) 0.7 % Normal 0.2-2.0 [facility] Comment on above: Performed By: #### C BC ####[facility] Vithodpzhu232[address] [place], [place] [address]Dr. Donna Malone EO # 0.2 103/ul Normal 0.0-0.7 [facility] Comment on above: Performed By: #### C BC ####[facility] Jwlflpiacq1090[address] [place], [place] [address]Dr. Donna Malone Eosinophils/100 WBC (Bld) 2.0 % Normal 0.9-7.0 [facility] Comment on above: Performed By: #### C BC ####[facility] Yztdsazgdb8579[address] [place], [place] [address]Dr. Donna Malone Erythrocyte distribution width (RBC) [Ratio] 14.3 % Normal 11.0-15.0 [facility] Comment on above: Performed By: #### C BC ####[facility] Fcfxykgdqo1596[address] [place], [place] [address]Dr. Donna Malone Hematocrit (Bld) [Volume fraction] 37.3 % Critically low 42.0-54.0 [facility] Comment on above: Performed By: #### C BC ####[facility] Shiegdrgkd0997[address] [place], [place] [address]Dr. Donna Malone Hemoglobin (Bld) [Mass/Vol] 12.1 g/dL Critically low 14.0-18.0 [facility] Comment on above: Performed By: #### C BC ####[facility] Qbnagsrcfh4578[address] [place], [place] [address]Dr. Donna Malone IG # 0.03 10e3/ul Normal 0.00-0.03 [facility] Comment on above: Performed By: #### C BC ####[facility] Mnewfcfwsz178[address] [place], [place] [address]Dr. Donna Malone IG % 0.4 % Normal 0.0-0.5 [facility] Comment on above: Performed By: #### C BC ####[facility] Xwjtgjrabw15[address] [place] [id number]. Donna Faisal LYMPH # 1.3 103/ul Normal 1.2-3.8 [facility] Comment on above: Performed By: #### C BC ####[facility] Gdgjjodhmk1216 [place] [address]Dr. Donna Faisal Lymphocytes/100 WBC (Bld) 18.3 % Critically low 20.5-60.0 [facility] Comment on above: Performed By: #### C BC ####[facility] Sozewureqb9803 [place] [address]Dr. Rubyyvan Malone MANUAL DIFF REQ NO Normal [facility] Comment on above: Performed By: #### C BC ####[facility] Kbmkvlbjzq[address] [place] [address]Dr. Donna Faisal MCH (RBC) [Entitic mass] 30.1 pg Normal 25.9-34.0 [facility] Comment on above: Performed By: #### C BC ####[facility] Fxyrzkdbwz1788 [place] [address]Dr. Donna Faisal MCHC (RBC) [Mass/Vol] 32.4 g/dL Normal 29.9-35.2 [facility] Comment on above: Performed By: #### C BC ####[facility] Yzybfdvxzp3463 [place] [address]Dr. Donna Faisal MCV (RBC) [Entitic vol] 92.8 fL Normal 80.0-94.0 [facility] Comment on above: Performed By: #### C BC ####[facility] Mlbfsulthv56[address] [place] [address]Dr. Donna Faisal MONO # 0.6 103/ul Normal 0.3-0.8 [facility] Comment on above: Performed By: #### C BC ####[facility] Xkykicrnpb0799 [place] [address]Dr. Rubyyvan Malone Monocytes/100 WBC (Bld) 7.6 % Normal 1.7-12.0 [facility] Comment on above: Performed By: #### C BC ####[facility] Wezuicouoe5[address] [place] [address]Dr. Donna Malone NEUT # 5.2 103/ul Normal 1.4-6.5 [facility] Comment on above: Performed By: #### C BC ####[facility] Cqlpeuyhtz23[address] [place] [address]Dr. Donna Malone Neutrophils/100 WBC (Bld) 71.0 % Normal 43.0-75.0 [facility] Comment on above: Performed By: #### C BC ####[facility] Wemwrnafxh8270 [place] [address]Dr. Donna Malone Platelet mean volume (Bld) [Entitic vol] 11.6 fL Normal 9.5-13.5 [facility] Comment on above: Performed By: #### C BC ####[facility] Rzbfcifvyy7563 [place] [address]Dr. Donna Malone PLT 237 103/ul Normal 150-450 [facility] Comment on above: Performed By: #### C BC ####[facility] Amriegazsk3[address] [place] [address]Dr. Donna Malone RBC 4.02 106/ul Critically low 4.70-6.10 [facility] Comment on above: Performed By: #### C BC ####[facility] Rexzqcoypk2383 [place] [address]Dr. Donna Malone WBC 7.3 103/ul Normal 4.0-11.0 [facility] Comment on above: Performed By: #### C BC ####[facility] Zvxsjqqptz70[address] [place] [address]Dr. Donna Malone Covid-19 PCR ([facility])on SARS-CoV-2 (COVID-19) RNA JOSÉ MIGUEL+probe Ql (Unsp spec) Not detected Normal NOT DETECTED [facility] Comment on above: Result Comment: When [...] for this test is supported by the Cable Installer Repairer of Health and Human Service's declaration that [...] be used). Performed By: #### C VDTBH ####[facility] Etozqtormc[address] [place], [place] [address]Dr. Donna Malone LACTATE/LACTIC ACIDon 2021 Lactate [Moles/Vol] 1.3 mmol/L Normal 0.4-1.9 [facility] Comment on above: Performed By: #### L ACT ####[facility] Zeajsxjbva9632[address] [place], [place] [address]Dr. Donna Malone PROF 14(COMP METB)on 022 Albumin [Mass/Vol] 2.9 g/dL Critically low 3.4-5.0 [facility] Comment on above: Performed By: #### C MARTI HSTROPN ####[facility] Qfufhebouh15[address] [place], [place] [address]Dr. Donna Malone Albumin/Globulin [Mass ratio] 0.7 {ratio} Normal [facility] Comment on above: Performed By: #### C MARTI HSTROPN ####[facility] Iraypchruo9460[address] [place], [place] [address]Dr. Donna Malone ALP [Catalytic activity/Vol] 45 U/L Critically low 46-116 [facility] Comment on above: Performed By: #### C MARTI HSTROPN ####[facility] Dywwuqjvqd8366[address] [place], [place] [address]Dr. Donna Malone ALT [Catalytic activity/Vol] 12 U/L Critically low 16-63 [facility] Comment on above: Performed By: #### C MARTI, HSTROPN ####[facility] Pxnlyverig6[address] [place] [id number]. Donna Malone Anion gap [Moles/Vol] 10.9 mmol/L Normal Th [facility] Comment on above: Performed By: #### C MARTI, HSTROPN ####[facility] Shlfuuessd7739 [place] [address]Dr. Donna Malone AST [Catalytic activity/Vol] 10 U/L Critically low 15-37 [facility] Comment on above: Performed By: #### C MARTI, HSTROPN ####[facility] Jvkfbsexfn7899 [place] [address]Dr. Donna Malone Bilirubin [Mass/Vol] 0.3 mg/dL Normal 0.2-1.0 [facility] Comment on above: Performed By: #### C MARTI, HSTROPN ####[facility] Uavgjknvjc5239 [place] [address]Dr. Rubyyvan Malone Calcium [Mass/Vol] 8.9 mg/dL Normal 8.5-10.1 [facility] Comment on above: Performed By: #### C MARTI, HSTROPN ####[facility] Mrzjcxfxic2132 [place] [address]Dr. Rubyyvan Malone Chloride [Moles/Vol] 106 mmol/L Normal 98-107 [facility] Comment on above: Performed By: #### C MARTI, HSTROPN ####[facility] Odamctmjmh28[address] [place] [address]Dr. Donna Malone CO2 [Moles/Vol] 29.4 mmol/L Normal 21.0-32.0 [facility] Comment on above: Performed By: #### C MARTI, HSTROPN ####[facility] Sqdyshpigb71[address] [place] [address]Dr. Donna Malone Creatinine [Mass/Vol] 1.15 mg/dL Normal 0.70-1.30 [facility] Comment on above: Performed By: #### C MARTI, HSTROPN ####[facility] [address] [place] [address]Dr. Donna Faisal EGFR-AF SLOVAK >60 Normal >=60 [facility] Comment on above: Performed By: #### C MARTI, HSTROPN ####[facility] [address] [place] [address]Dr. Donna Malone EGFR-NON AF SLOVAK >60 Normal >=60 [facility] Comment on above: Performed By: #### C MARTI, HSTROPN ####[facility] [address] [place] [address]Dr. Donna Malone Globulin (S) [Mass/Vol] 4.2 g/dL Normal [facility] Comment on above: Performed By: #### C MARTI, HSTROPN ####[facility] [address] [place] [address]Dr. Donna Malone Glucose [Mass/Vol] 116 mg/dL Critically high 74-106 T [facility] Comment on above: Performed By: #### C MARTI, HSTROPN ####[facility] [address] [place] [address]Dr. Donna Malone Potassium [Moles/Vol] 4.3 mmol/L Normal 3.5-5.1 [facility] Comment on above: Performed By: #### C MARTI, HSTROPN ####[facility] [address] [place], [place] [address]Dr. Donna Malone Protein [Mass/Vol] 7.1 g/dL Normal 6.4-8.2 [facility] Comment on above: Performed By: #### C MARTI, HSTROPN ####[facility] [address] [place] [address]Dr. Donna Malone Sodium [Moles/Vol] 142 mmol/L Normal 136-145 [facility] Comment on above: Performed By: #### C MARTI, HSTROPN ####[facility] [address] [place], [place] [address]Dr. Donna Malone Urea nitrogen [Mass/Vol] 9.0 mg/dL Normal 7.0-18.0 [facility] Comment on above: Performed By: #### C MARTI, HSTROPN ####[facility] [address] [place], [place] [address]Dr. Donna Malone Urea nitrogen/Creatinine [Mass ratio] 7.8 mg/mg Normal [facility] Comment on above: Performed By: #### C MARTI, HSTROPN ####[facility] [address] [place], [place] [address]Sk. Donna Malone TROPONIN, HIGH SENSITIVITYon 08-10-2022 HSTROP 9.1 pg/mL Normal 4.0-76.1 [facility] Comment on above: Result Comment: CUT- OFF POINTS HAVE BEEN ESTABLISHED BASED ON THE FOURTH UNIVERSAL DEFINITIONS OF MYOCARDIALINFARCTION. THE UPPER REFERENCE LIMIT (URL) OF TROPONIN, DEFINED THE 99TH PERCENTILE OFcTnI DISTRIBUTION IN A REFERENCE POPULATION, HAS BEEN CONFIRMED THE DECISION THRESHOLDFOR NV DIAGNOSIS. Performed By: #### C MARTI, HSTROPN ####[facility] [address] [place], [place] [address]Ie. Donna Malone XR KNEE RT 4V or >on 022 XR KNEE RT 4V or > Normal [facility] CT HEAD WO [facility] 08-05-2022 CT HEAD WO CON Normal [facility] Normal [facility] CON Normal [facility] L[facility] CON Normal [facility] Glucose Glucometer (BldC) [M ass/Vol]Ordered By: Sang Bauer on 07-20-2022 Glucose [Mass/Vol] 139 mg/dL [facility] Comment on above: Random Glucose Refer ence Range is dependent on time and content of last meal. Glucose of more than 200 mg/dL in a nonstressed, ambulatory subject supports the diagnosis of Diabetes Mellitus. No Panel InformationOrdered By: Sang Bauer on 07-20-2022 Bedside Glucose Comment Glu2: cleaned meter [facility] [place] [facility] Cholesterol [Mass/volume] in Serum or PlasmaOrdered By: Sang Bauer on 07-18-2022 Cholesterol [Mass/Vol] 136 mg/dL 140-200 [facility] Comment on above: Chol less than 200 m g/dl low riskChol 201-239 mg/dl borderline riskChol 240 mg/dl and greater high risk Cholesterol in LDL Calc [Mas s/Vol]Ordered By: Sang Bauer on 07-18-2022 Cholesterol in LDL [Mass/Vol] 81 mg/dL 0-100 [facility] [place] [facility] Comment on above: LDL ATP III CLASSIFI CATIONLDL less than 100 mg/dL OptimalLDL 100-129 mg/dL Near or above optimalLDL 130-159 mg/dL Borderline highLDL 160-189 mg/dL HighLDL greater than 189 mg/dL Very high Cholesterol in VLDL Calc [Ma ss/Vol]Ordered By: Sang Bauer on 07-18-2022 Cholesterol in VLDL [Mass/Vol] 17 mg/dL [facility] [place] [facility] Serum or plasma high density lipoprotein (HDL) cholesterol measurementOrdered By: Sang Bauer on 07-18-2022 Cholesterol in HDL [Mass/Vol] 38 mg/dL 29-71 [facility] [place] [facility] Comment on above: HDL CHOL ATP-III CLA SSIFICATION Cardiovascular RiskHDL > or equal to 60 mg/dL LOWHDL < 40 mg/dL HIGH Serum or plasma total choles terol/high density lipoprotein (HDL) cholesterol mass ratOrdered By: Sang Bauer on 07-18-2022 Cholesterol.total/Chol esterol in HDL [Mass ratio] 3.6 {ratio} <5.0 [facility] [place] [facility] Triglyceride [Mass/volume] i n Serum or PlasmaOrdered By: Sang Bauer on 07-18-2022 Triglyceride [Mass/Vol] 85 mg/dL 35-149 [facility] [place] [facility] Comment on above: TRIG ATP III [...] aPTT Coag (PPP) [Time] 35.8 s 25.1-36.5 [facility] Albumin [Mass/volume] in Ser um or PlasmaOrdered By: Gayathri Leal on 07-17-2022 Albumin [Mass/Vol] 3.1 g/dL 3.2-5.5 [facility] Amphetamine Screen Ql (U)Ord ered By: Gayathri Leal on 07-17-2022 Amphetamines Ql (U) Negative Negative [facility] Automated erythrocytes count in urine sediment (number/area)Ordered By: Gayathri Leal on 07-17-2022 RBC Auto (Urine sed) [#/Area] 3-4 [HPF] 0-4 [facility] [place] [facility] Automated leukocytes count i n urine sediment (number/area)Ordered By: Gayathri Leal on 07-17-2022 WBC Auto (Urine sed) [#/Area] 1-2 [HPF] 0-4 [facility] [place] [facility] Barbiturates [Presence] in U rineOrdered By: Gayathri Leal on 07-17-2022 Barbiturates Ql (U) Negative Negative [facility] Basophils Auto (Bld) [#/Vol] Ordered By: Gayathri Leal on 07-17-2022 Basophils (Bld) [#/Vol] 0.1 10*3/uL 0.0-0.2 [facility] [place] [facility] Basophils/100 WBC Auto (Bld) Ordered By: Gayathri Leal on 07-17-2022 Basophils/100 WBC (Bld) 1.0 % . [facility] [place] [facility] Benzodiazepines [Presence] i n UrineOrdered By: Gayathri Leal on 07-17-2022 Benzodiazepines Ql (U) Positive Negative [facility] Bilirubin Test strip Ql (U)O rdered By: Gayathri Leal on 07-17-2022 Bilirubin Ql (U) Negative Negative [facility] COVID CepheidOrdered By: Olya Leal on 07-17-2022 SARS-CoV-2 (COVID-19) Ab IA Ql Negative Negative [facility] [place] [facility] Comment on above: This is a duplicate [employer] Xpert Xpress CoV-2/Flu/RSV Plus RNA by RT-PCR result to be used for statistical tracking purpose only. SARS-CoV-2 (COVID-19) RNA JOSÉ MIGUEL+probe Ql (Unsp spec) [facility] [place] [facility] Cannabinoids [Presence] in U rine by Screen methodOrdered By: Gayathri Leal on 07-17-2022 Cannabinoids Screen Ql (U) Negative Negative [facility] [place] [facility] Comment on above: These are unconfirme d results and should not be used for legal purposes. Drug Cut-Off Concentration: AMPH 1000 ng/mL EWA 200 ng/mL JOHN 200 ng/mL COCM 300 ng/mL OP 300 ng/mL PCP 25 ng/mL THC 20 ng/mL Color Auto (U)Ordered By: Dung Leal on 07-17-2022 Color (U) Yellow Yellow [facility] [place] [facility] Creatine kinase [Enzymatic a ctivity/volume] in Serum or PlasmaOrdered By: Gayathri Leal on 07-17-2022 CK [Catalytic activity/Vol] 137 U/L 22-269 [facility] [place] [facility] Creatinine and Glomerular fi ltration rate.predicted panel (S/P/Bld)Ordered By: Gayathri Leal on 07-17-2022 Creatinine [Mass/Vol] 1.06 mg/dL 0.64-1.27 [facility] Direct bilirubin measurement Ordered By: Gayathri Leal on 07-17-2022 Bilirubin.direct [Mass/Vol] mg/dL 0.0-0.4 [facility] [place] [facility] Eosinophils Auto (Bld) [#/Vo l]Ordered By: Gayathri Leal on 07-17-2022 Eosinophils (Bld) [#/Vol] 0.1 10*3/uL 0.0-0.45 [facility] [place] [facility] Eosinophils/100 WBC Auto (Bl d)Ordered By: Gayathri Leal on 07-17-2022 Eosinophils/100 WBC (Bld) 0.7 % . [facility] [place] [facility] Erythrocyte distribution wid th Auto (RBC) [Ratio]Ordered By: Gayathri Leal on 07-17-2022 Erythrocyte distribution width (RBC) [Ratio] 15.8 % 12.0-14.8 [facility] [place] [facility] Estimated glomerular filtrat ion rate (GFR) non- AmericanOrdered By: Gayathri Leal on 07-17-2022 GFR/1.73 sq M.predicted among non-blacks MDRD (S/P/Bld) [Vol rate/Area] > 60 mL/Min [facility] [place] [facility] Globulin Calc (S) [Mass/Vol] Ordered By: Gayathri Leal on 07-17-2022 Globulin (S) [Mass/Vol] 3.0 g/dL [facility] [place] [facility] Glucose mean value [Mass/vol ume] in Blood Estimated from glycated hemoglobinOrdered By: Sang Bauer on 07-17-2022 Average glucose Estimated from glycated hemoglobin (Bld) [Mass/Vol] 114 mg/dL [facility] [place] [facility] Hematocrit Auto (Bld) [Volum e fraction]Ordered By: Gayathri Leal on 07-17-2022 Hematocrit (Bld) [Volume fraction] 37.3 % 38.8-50.0 [facility] [place] [facility] Hemoglobin A1c percentageOrd ered By: Sang Bauer on 07-17-2022 HbA1c (Bld) [Mass fraction] 5.6 % 4.3-5.6 [facility] [place] [facility] Comment on above: Increased risk for d iabetes: 5.7 - 6.4diabetes: >6.4glycemic control for adults with diabetes: <7.0 Hemoglobin [Mass/volume] in BloodOrdered By: Gayathri Leal on 07-17-2022 Hemoglobin (Bld) [Mass/Vol] 12.3 g/dL 13.0-17.0 [facility] [place] [facility] Ketones Auto test strip (U) [Mass/Vol]Ordered By: Gayathri Leal on 07-17-2022 Ketones (U) [Mass/Vol] 2+ Negative [facility] Laboratory - Chemistry and C hemistry - challengeOrdered By: Gayathri Leal on 07-17-2022 Natriuretic peptide B (Bld) [Mass/Vol] 116.0 pg/mL 5-100 [facility] [place] [facility] Laboratory - CoagulationOrde red By: Gayathri Leal on 07-17-2022 PT Coag (PPP) [Time] 12.5 s 9.0-12.9 [facility] - Drug toxicology Ordered By: Gayathri Leal on 07-17-2022 Opiates Ql (U) Negative Negative [facility] [place] [facility] - Hematology and Cell countsOrdered By: Gayathri Leal on 07-17-2022 Nucleated RBC/100 WBC (Bld) [Ratio] 0.1 % 0-0.5 [facility] [place] [facility] - UrinalysisOrder ed By: Gayathri Leal on 07-17-2022 Hyaline casts LM Ql (Urine sed) None seen [LPF] 0-8 [facility] [place] [facility] Leukocytes [#/volume] in Blo od by Automated countOrdered By: Gayathri Leal on 07-17-2022 WBC (Bld) [#/Vol] 7.8 10*3/uL 4.5-11.0 [facility] Lymphocytes Auto (Bld) [#/Vo l]Ordered By: Gayathri Leal on 07-17-2022 Lymphocytes (Bld) [#/Vol] 2.3 10*3/uL 1.00-4.8 [facility] [place] [facility] Lymphocytes/100 WBC Auto (Bl d)Ordered By: Gayathri Leal on 07-17-2022 Lymphocytes/100 WBC (Bld) 29.5 % . [facility] [place] [facility] MCH Auto (RBC) [Entitic mass ]Ordered By: Gayathri Leal on 07-17-2022 MCH (RBC) [Entitic mass] 30.2 pg 27.5-35.2 [facility] [place] [facility] MCHC Auto (RBC) [Mass/Vol]Or dered By: Gayathri Leal on 07-17-2022 MCHC (RBC) [Mass/Vol] 33.1 g/dL 32.5-35.6 [facility] MCV Auto (RBC) [Entitic vol] Ordered By: Gayathri Leal on 07-17-2022 MCV (RBC) [Entitic vol] 91.5 fL 83.5-101 [facility] [place] [facility] Monocyte %Ordered By: Zeinab Leal on 07-17-2022 Monocyte % 20 umol/L [facility] [place] [facility] Monocytes Auto (Bld) [#/Vol] Ordered By: Gayathri Leal on 07-17-2022 Monocytes (Bld) [#/Vol] 0.4 10*3/uL 0.0-0.8 [facility] [place] [facility] Monocytes/100 WBC Auto (Bld) Ordered By: Gayathri Leal on 07-17-2022 Monocytes/100 WBC (Bld) 5.4 % . [facility] [place] [facility] Neutrophils Auto (Bld) [#/Vo l]Ordered By: Gayathri Leal on 07-17-2022 Neutrophils (Bld) [#/Vol] 4.9 10*3/uL 1.8-7.7 [facility] [place] [facility] Neutrophils/100 WBC Auto (Bl d)Ordered By: Gayathri Leal on 07-17-2022 Neutrophils/100 WBC (Bld) 63.4 % . [facility] [place] [facility] Nitrite Test strip Ql (U)Ord ered By: Gayathri Leal on 07-17-2022 Nitrite Ql (U) Negative Negative [facility] [place] [facility] No Panel InformationOrdered By: Gayathri Leal on 07-17-2022 Estimated GFR () > 60 mL/Min [facility] [place] [facility] Comment on above: GFR estimated refere nce range: According to KDOQI guidelines, <60 ml/min/1.73m2 is sufficient to diagnose a patient with chronic kidney disease. Pharmacy Creatinine Clearance (Chem N/A [facility] [place] [facility] Phencyclidine Screen Ql (U)O rdered By: Gayathri Leal on 07-17-2022 Phencyclidine Ql (U) Negative Negative [facility] Platelet mean volume Auto (B ld) [Entitic vol]Ordered By: Gayathri Leal on 07-17-2022 Platelet mean volume (Bld) [Entitic vol] 10.2 fL 6.6-10.1 [facility] [place] [facility] Platelet poor plasma interna tional normalized ratio (INR) by coagulation assay (relatOrdered By: Gayathri Leal on 07-17-2022 INR Coag (PPP) [Relative time] 1.1 {INR} [facility] [place] [facility] Comment on above: INR Therapeutic Rang [...] 07-17-2022 Platelets (Bld) [#/Vol] 239 10*3/uL 150-450 [facility] [place] [facility] Protein Auto test strip (U) [Mass/Vol]Ordered By: Gayathri Leal on 07-17-2022 Protein (U) [Mass/Vol] Negative Negative [facility] Protein [Mass/volume] in Ser um or PlasmaOrdered By: Gayathri Leal on 07-17-2022 Protein [Mass/Vol] 6.1 g/dL 6.1-7.9 [facility] RBC Auto (Bld) [#/Vol]Ordere d By: Gayathri Leal on 07-17-2022 RBC (Bld) [#/Vol] 4.07 10*6/uL 3.90-5.60 [facility] Serum or plasma alanine del valle otransferase measurement without P-5'-P (enzymatic activiOrdered By: Gayathri Leal on 07-17-2022 ALT No additional P-5'-P [Catalytic activity/Vol] 13 U/L 1060 [facility] [place] [facility] Serum or plasma albumin/glob ulin mass ratioOrdered By: Gayathri Leal on 07-17-2022 Albumin/Globulin [Mass ratio] 1.0 {ratio} [facility] [place] [facility] Serum or plasma alkaline gail sphatase measurement (enzymatic activity/volume)Ordered By: Gayathri Leal on 07-17-2022 ALP [Catalytic activity/Vol] 37 U/L 32-92 [facility] [place] [facility] Serum or plasma anion gap de terminationOrdered By: Gayathri Leal on 07-17-2022 Anion gap [Moles/Vol] 12.1 mmol/L 6.0-15.0 [facility] Serum or plasma aspartate am inotransferase measurement (enzymatic activity/volume)Ordered By: Gayathri Leal on 07-17-2022 AST [Catalytic activity/Vol] 15 U/L 10-42 [facility] [place] [facility] Serum or plasma calcium deepti urement (mass/volume)Ordered By: Gayathri Leal on 07-17-2022 Calcium [Mass/Vol] 8.8 mg/dL 8.2-10.2 [facility] Serum or plasma chloride deepak surement (moles/volume)Ordered By: Gayathri Leal on 07-17-2022 Chloride [Moles/Vol] 108 mmol/L 95-114 [facility] Serum or plasma creatine kin ase MB (CKMB)/total creatine kinase (CK) ratio by calculaOrdered By: Gayathri Leal on 07-17-2022 CK.MB Calc [Catalytic fraction] 2.6 % 0.00-2.50 [facility] [place] [facility] Serum or plasma creatine kin ase MB measurement (mass/volume)Ordered By: Gayathri Leal on 07-17-2022 CK.MB [Mass/Vol] 3.6 ng/mL 0.6-6.3 [facility] Serum or plasma glucose deepti urement (mass/volume)Ordered By: Gayathri Leal on 07-17-2022 Glucose [Mass/Vol] 91 mg/dL 70-100 [facility] Comment on above: ADA recommended refe rence rangeRandom Glucose Reference Range is dependent on time and content of last meal. Glucose of more than 200 mg/dL in a nonstressed, ambulatory subject supports the diagnosis of Diabetes Mellitus. Serum or plasma non-glucuron idated bilirubin measurement (mass/volume)Ordered By: Gayathri Leal on 07-17-2022 Bilirubin.indirect [Mass/Vol] TNP [facility] [place] [facility] Comment on above: Test not performed Serum or plasma potassium me asurement (moles/volume)Ordered By: Gayathri Leal on 07-17-2022 Potassium [Moles/Vol] 4.0 mmol/L 3.5-5.1 [facility] Serum or plasma sodium measu rement (moles/volume)Ordered By: Gayathri Leal on 07-17-2022 Sodium [Moles/Vol] 139 mmol/L 136-146 [facility] Serum or plasma total biliru bin measurement (mass/volume)Ordered By: Gayathri Leal on 07-17-2022 Bilirubin [Mass/Vol] 0.8 mg/dL 0.3-1.2 [facility] Serum or plasma total carbon dioxide measurement (moles/volume)Ordered By: Gayathri Leal on 07-17-2022 CO2 [Moles/Vol] 22.9 mmol/L 22.0-30.0 [facility] Serum or plasma urea nitroge n measurement (mass/volume)Ordered By: Gayathri Leal on 07-17-2022 Urea nitrogen [Mass/Vol] 12 mg/dL 9-23 [facility] [place] [facility] Specific gravity Auto test s trip (U) [Rel density]Ordered By: Gayathri Leal on 07-17-2022 Specific gravity (U) [Rel density] 1.024 1.001-1.03 0 [facility] [place] [facility] Squamous epithelial cells de tection in urine sediment by light microscopyOrdered By: Gayathri Leal on 07-17-2022 Epithelial cells.squamous LM Ql (Urine sed) None seen [HPF] 0-2 [facility] [place] [facility] Troponin I.cardiac [Mass/vol ume] in Serum or Plasma by High sensitivity methodOrdered By: Sang Bauer on 07-17-2022 Troponin I.cardiac High sensitivity method [Mass/Vol] 7 pg/mL 0-20 [facility] [place] [facility] Urine bacteria detection by automated methodOrdered By: Gayathri Leal on 07-17-2022 Bacteria Auto Ql (U) None seen None Seen [facility] Urine clarity by refractomet ry automatedOrdered By: Gayathri Leal on 07-17-2022 Clarity Refractometry automated (U) Clear Clear [facility] [place] [facility] Urine cocaine detectionOrder ed By: Gayathri Leal on 07-17-2022 Cocaine Ql (U) Negative Negative [facility] [place] [facility] Urine glucose measurement by automated test strip (mass/volume)Ordered By: Gayathri Leal on 07-17-2022 Glucose Auto test strip (U) [Mass/Vol] Normal mg/dL Normal [facility] [place] [facility] Urine hemoglobin detection b y automated test stripOrdered By: Gayathri Leal on 07-17-2022 Hemoglobin Auto test strip Ql (U) Negative Negative [facility] [place] [facility] Urine leukocyte esterase det ection by automated test stripOrdered By: Gayathri Leal on 07-17-2022 Leukocyte esterase Auto test strip Ql (U) 1+ Negative [facility] [place] [facility] Urobilinogen Auto test strip (U) [Mass/Vol]Ordered By: Gayathri Leal on 07-17-2022 Urobilinogen (U) [Mass/Vol] Normal mg/dL Normal [facility] [place] [facility] pH Auto test strip (U)Ordere d By: Gayathri Leal on 07-17-2022 pH (U) 6.5 [pH] 5.0-9.0 [facility] [place] [facility] AMMONIAon 07-16-2022 Ammonia (P) [Moles/Vol] 44 umol/L Critically high [facility] Comment on above: Performed By: #### A MM ####[facility] [address] [place], [place] [address]Dr. Donna Malone BNPon 07-16-2022 Natriuretic peptide B (Bld) [Mass/Vol] 236.0 pg/mL Normal <=900.0 [facility] Comment on above: Performed By: #### C MP, BNP ####[facility] [address] [place], [place] [address]Dr. Donna Malone CBC AUTO DIFFon 07-16-2022 BASO # 0.1 103/ul Normal 0.0-0.1 [facility] Comment on above: Performed By: #### C BC ####[facility] [address] [place], [place] [address]Dr. Donna Faisal Basophils/100 WBC (Bld) 1.0 % Normal 0.2-2.0 [facility] Comment on above: Performed By: #### C BC ####[facility] [address] [place], [place] [address]Dr. Donna Malone EO # 0.2 103/ul Normal 0.0-0.7 [facility] Comment on above: Performed By: #### C BC ####[facility] [address] [place], [place] [address]Dr. Rubyyvan Malone Eosinophils/100 WBC (Bld) 3.3 % Normal 0.9-7.0 [facility] Comment on above: Performed By: #### C BC ####[facility] [address] [place], [place] [address]Dr. Donna Malone Erythrocyte distribution width (RBC) [Ratio] 15.1 % Critically high 11.0-15.0 [facility] Comment on above: Performed By: #### C BC ####[facility] [address] [place] [address]Dr. Rubyyvan Malone Hematocrit (Bld) [Volume fraction] 36.1 % Critically low 42.0-54.0 [facility] Comment on above: Performed By: #### C BC ####[facility] [address] [place] [address]Dr. Donna Malone Hemoglobin (Bld) [Mass/Vol] 12.0 g/dL Critically low 14.0-18.0 [facility] Comment on above: Performed By: #### C BC ####[facility] [address] [place], [place] [address]Dr. Donna Malone IG # 0.01 10e3/ul Normal 0.00-0.03 [facility] Comment on above: Performed By: #### C BC ####[facility] [address] [place], [place] [address]Dr. Donna Malone IG % 0.2 % Normal 0.0-0.5 [facility] Comment on above: Performed By: #### C BC ####[facility] [address] [place], [place] [address]Dr. Donna Malone LYMPH # 2.5 103/ul Normal 1.2-3.8 [facility] Comment on above: Performed By: #### C BC ####[facility] [address] [place], [place] [address]Dr. Donna Malone Lymphocytes/100 WBC (Bld) 41.1 % Normal 20.5-60.0 [facility] Comment on above: Performed By: #### C BC ####[facility] [address] [place], [place] [address]Dr. Donna Malone MANUAL DIFF REQ NO Normal [facility] Comment on above: Performed By: #### C BC ####[facility] [address] [place], [place] [address]Dr. Donna Malone MCH (RBC) [Entitic mass] 30.6 pg Normal 25.9-34.0 [facility] Comment on above: Performed By: #### C BC ####[facility] [address] [place] [id number]. Donna Malone MCHC (RBC) [Mass/Vol] 33.2 g/dL Normal 29.9-35.2 [facility] Comment on above: Performed By: #### C BC ####[facility] [address] [place] [address]Dr. Donna Faisal MCV (RBC) [Entitic vol] 92.1 fL Normal 80.0-94.0 [facility] Comment on above: Performed By: #### C BC ####[facility] [address] [place] [id number]. Donna Malone MONO # 0.5 103/ul Normal 0.3-0.8 [facility] Comment on above: Performed By: #### C BC ####[facility] [address] [place], [place] [address]Dr. Donna Malone Monocytes/100 WBC (Bld) 7.4 % Normal 1.7-12.0 [facility] Comment on above: Performed By: #### C BC ####[facility] [address] [place], [place] [address]Dr. Rubyyvan Malone NEUT # 2.9 103/ul Normal 1.4-6.5 [facility] Comment on above: Performed By: #### C BC ####[facility] [address] [place], [place] [address]Dr. Donna Malone Neutrophils/100 WBC (Bld) 47.0 % Normal 43.0-75.0 [facility] Comment on above: Performed By: #### C BC ####[facility] [address] [place], [place] [address]Dr. Donna Malone Platelet mean volume (Bld) [Entitic vol] 11.4 fL Normal 9.5-13.5 [facility] Comment on above: Performed By: #### C BC ####[facility] [address] [place], [place] [address]Dr. Donna Malone PLT 206 103/ul Normal 150-450 [facility] Comment on above: Performed By: #### C BC ####[facility] [address] [place] [id number]. Donna Faisal RBC 3.92 106/ul Critically low 4.70-6.10 [facility] Comment on above: Performed By: #### C BC ####[facility] [address] [place] [address]Dr. Donna Faisal WBC 6.1 103/ul Normal 4.0-11.0 [facility] Comment on above: Performed By: #### C BC ####[facility] [address] [place] [address]Dr. Rubyyvan Malone ECHO LIMITED STUDYon 022 ECHO LIMITED STUDY Normal [facility] MRI BRAIN WO CONon 2 MRI BRAIN WO CON Normal [facility] PROF 14(COMP METB)on 022 Albumin [Mass/Vol] 2.8 g/dL Critically low 3.4-5.0 [facility] Comment on above: Performed By: #### C MP, BNP ####[facility] [address] [address] [place], [place] [address]Dr. Donna Faisal Albumin/Globulin [Mass ratio] 0.9 {ratio} Normal [facility] Comment on above: Performed By: #### C MP, BNP ####[facility] [address] [place] [address]Dr. Donna Malone ALP [Catalytic activity/Vol] 36 U/L Critically low 46-116 [facility] Comment on above: Performed By: #### C MP, BNP ####[facility] Fchfhyraei[address] [place] [address]Dr. Donna Malone ALT [Catalytic activity/Vol] 13 U/L Critically low 16-63 [facility] Comment on above: Performed By: #### C MP, BNP ####[facility] Awgqabzloz[address] [place] [address]Dr. Donna Malone Anion gap [Moles/Vol] 10.4 mmol/L Normal [facility] Comment on above: Performed By: #### C MP, BNP ####[facility] Ifarxbhfwv6[address] [place], [place] [address]Dr. Donna Malone AST [Catalytic activity/Vol] 13 U/L Critically low 15-37 [facility] Comment on above: Performed By: #### C MP, BNP ####[facility] Yhhfgdblhy[address] [place] [address]Dr. Donna Malone Bilirubin [Mass/Vol] 0.3 mg/dL Normal 0.2-1.0 [facility] Comment on above: Performed By: #### C MP, BNP ####[facility] Tsaycauyxi[address] [place] [address]Dr. Donna Malone Calcium [Mass/Vol] 8.2 mg/dL Critically low 8.5-10.1 [facility] Comment on above: Performed By: #### C MP, BNP ####[facility] Kutsvprfcr[address] [place] [address]Dr. Donna Malone Chloride [Moles/Vol] 108 mmol/L Critically high 98-107 [facility] Comment on above: Performed By: #### C MP, BNP ####[facility] Wfdymwbuvj[address] [place] [address]Dr. Donna Malone CO2 [Moles/Vol] 25.5 mmol/L Normal 21.0-32.0 [facility] Comment on above: Performed By: #### C MP, BNP ####[facility] Qjqhqznlzp46[address] [place] [address]Dr. Donna Malone Creatinine [Mass/Vol] 0.92 mg/dL Normal 0.70-1.30 [facility] Comment on above: Performed By: #### C MP, BNP ####[facility] Bsghponvuf[address] [place] [address]Dr. Donna Malone EGFR-AF SLOVAK >60 Normal >=60 [facility] Comment on above: Performed By: #### C MP, BNP ####[facility] Woucavptxk[address] [place] [address]Dr. Donna Malone EGFR-NON AF [place]OVAK >60 Normal >=60 [facility] Comment on above: Performed By: #### C MP, BNP ####[facility] Yntoxmmwkh4234 [place] [address]Dr. Donna Malone Globulin (S) [Mass/Vol] 3.2 g/dL Normal [facility] Comment on above: Performed By: #### C MP, BNP ####[facility] Cbmiijotba12[address] [place], [place] [address]Dr. Donna Malone Glucose [Mass/Vol] 76 mg/dL Normal 74-106 [facility] Comment on above: Performed By: #### C MP, BNP ####[facility] Hjyxuwvjvu[address] [place], [place] [address]Dr. Donna Malone Potassium [Moles/Vol] 3.9 mmol/L Normal 3.5-5.1 [facility] Comment on above: Performed By: #### C MP, BNP ####[facility] Uflpkzlglk[address] [place], [place] [address]Dr. Donna Malone Protein [Mass/Vol] 6.0 g/dL Critically low 6.4-8.2 [facility] Comment on above: Performed By: #### C MP, BNP ####[facility] Tnoijqgoaf23[address] [place], [place] [address]Dr. Donna Malone Sodium [Moles/Vol] 140 mmol/L Normal 136-145 [facility] Comment on above: Performed By: #### C MP, BNP ####[facility] Drjrzbbfrs10[address] [place], [place] [address]Dr. Donna Malone Urea nitrogen [Mass/Vol] 12.0 mg/dL Normal 7.0-18.0 [facility] Comment on above: Performed By: #### C MP, BNP ####[facility] Pejtazreof[address] [place], [place] [address]Dr. Donna Malone Urea nitrogen/Creatinine [Mass ratio] 13.0 mg/mg Normal [facility] Comment on above: Performed By: #### C MP, BNP ####[facility] Jednwspbwg40[address] [place], [place] [address]Dr. Donna Malone VIT B12 AND FOLATEon 022 Cobalamin (Vitamin B12) [Mass/Vol] 532.0 pg/mL Normal 193.0-986. 0 [facility] Comment on above: Performed By: #### B 12FOL ####[facility] Qigogvtziu[address] [place] [address]Dr. Donna Malone FOLATE 13.60 ng/mL Normal 8.60-58.90 [facility] Comment on above: Performed By: #### B 12FOL ####[facility] Mnglmjlgsv83[address] [place] [address]Dr. Donna Malone AMMONIAon 07-15-2022 Ammonia (P) [Moles/Vol] 23 umol/L Normal [facility] Comment on above: Performed By: #### A MM ####[facility] Ofofigtrig5[address] [place], [place] [address]Dr. Donna Malone BLOOD GASES BTYon 07-15-2022 02 MODE ROOM AIR Normal [facility] Comment on above: Performed By: #### A BG ####[facility] Qpncfxevhv260[address] [place], [place] [address]Dr. Donna Malone ALLENS TEST Positive [facility] Comment on above: Performed By: #### A BG ####[facility] Fpqblmgepz09[address] [place], [place] [address]Dr. Donna Malone Base excess Calc (Bld) [Moles/Vol] -1.3000 mmol/L Normal -2.0-2.0 [facility] Comment on above: Performed By: #### A BG ####[facility] Opvwwtwbhx350[address] [place], [place] [address]Dr. Donna Malone BIPAP PRESSURE Normal [facility] Comment on above: Performed By: #### A BG ####[facility] Iqfjkduihd34[address] [place], [place] [address]Dr. Donna Malone CPAP Normal [facility] Comment on above: Performed By: #### A BG ####[facility] Nsobkyuvci67[address] [place], [place] [address]Dr. Donna Malone FIO2 Normal [facility] Comment on above: Performed By: #### A BG ####[facility] Tnjoyndnsv[address] [place], [place] [address]Dr. Donna Malone HCO3 (Bld) [Moles/Vol] 22.7 mmol/L Normal 22.0-26.0 [facility] Comment on above: Performed By: #### A BG ####[facility] Aauzlfoxoi0[address] [place], [place] [address]Dr. Donna Malone LPM [facility] Comment on above: Performed By: #### A BG ####[facility] Mjnqxsyseu80[address] [place], [place] [address]Dr. Donna Malone MINUTE VOLUME [facility] Comment on above: Performed By: #### A BG ####[facility] Omgcibepkk17[address] [place], [place] [address]Dr. Donna Malone Oxygen (Bld) [Partial pressure] 77.7 mm[Hg] Critically low 80.0-100.0 [facility] Comment on above: Performed By: #### A BG ####[facility] Pknmcdpmyy[address] [place], [place] [address]Dr. Donna Malone Oxygen saturation in Blood 95.9 % Normal 95.0-100.0 [facility] Comment on above: Performed By: #### A BG ####[facility] Ruprrqczuz[address] [place], [place] [address]Dr. Donna Malone PCO2 33.0 mmHg Critically low 35.0-45.0 [facility] Comment on above: Performed By: #### A BG ####[facility] Htlgcqfxxd694[address] [place], [place] [address]Dr. Donna Malone PEEP [facility] Comment on above: Performed By: #### A BG ####[facility] Suhfrafody32[address] [place], [place] [address]Dr. Donna Malone pH (Bld) 7.446 [pH] Normal 7.350-7.45 0 [facility] Comment on above: Performed By: #### A BG ####[facility] Ijpicrncjv[address] [place], [place] [address]Dr. Donna Malone PIP [facility] Comment on above: Performed By: #### A BG ####[facility] Rtyuqxktxi[address] [place], [place] [address]Dr. Donna Malone PS Normal [facility] Comment on above: Performed By: #### A BG ####[facility] Rfgdwboiow[address] [place] [address]Dr. Donna Malone PUNCTURE SITE RB [facility] Comment on above: Performed By: #### A BG ####[facility] Tszfynuzvy4[address] [place] [address]Dr. Donna Malone RATE Normal [facility] Comment on above: Performed By: #### A BG ####[facility] Phyugnhqyy9[address] [place] [address]Dr. Donna Malone VENT MODE [facility] Comment on above: Performed By: #### A BG ####[facility] Nypxztumuz[address] [place], [place] [address]Dr. Donna Malone [place] [facility] Comment on above: Performed By: #### A BG ####[facility] Upoeblrtjj[address] [place], [place] [address]Dr. Donna Malone BNPon 07-15-2022 Natriuretic peptide B (Bld) [Mass/Vol] 111.0 pg/mL Normal <=900.0 [facility] Comment on above: Performed By: #### B TOWING PILOT, CMP, CMADM ####[facility] Hbavqvlduy[address] [place] [address]Dr. Donna Malone CARDIAC MJ 3-6on 2 CK [Catalytic activity/Vol] 102 U/L Normal 39-308 [facility] Comment on above: Performed By: #### C MREP ####[facility] Hyknxhoqam[address] [place] [address]Dr. Donna Malone CK.MB [Mass/Vol] 3.67 ng/mL Critically high <=3.60 [facility] Comment on above: Performed By: #### C MREP ####[facility] Iblivzfrmd025[address] [place] [address]Dr. Donna Malone HSTROP 13.1 pg/mL Normal 4.0-76.1 [facility] Comment on above: Result Comment: CUT- OFF POINTS HAVE BEEN ESTABLISHED BASED ON THE FOURTH UNIVERSAL DEFINITIONS OF MYOCARDIALINFARCTION. THE UPPER REFERENCE LIMIT (URL) OF TROPONIN, DEFINED THE 99TH PERCENTILE OFcTnI DISTRIBUTION IN A REFERENCE POPULATION, HAS BEEN CONFIRMED THE DECISION THRESHOLDFOR NV DIAGNOSIS. Performed By: #### C MREP ####[facility] [address] [place] [id number]. Donna Malone CK [Catalytic activity/Vol] 89 U/L Normal 39-308 [facility] Comment on above: Performed By: #### C MREP ####[facility] Knzxeqptrv7849 [place] [address]Dr. Donna Malone CK.MB [Mass/Vol] 3.37 ng/mL Normal <=3.60 [facility] Comment on above: Performed By: #### C MREP ####[facility] Xqvwmmjpzf4110 [place] [address]Dr. Donna Malone HSTROP 11.2 pg/mL Normal 4.0-76.1 [facility] Comment on above: Result Comment: CUT- OFF POINTS HAVE BEEN ESTABLISHED BASED ON THE FOURTH UNIVERSAL DEFINITIONS OF MYOCARDIALINFARCTION. THE UPPER REFERENCE LIMIT (URL) OF TROPONIN, DEFINED THE 99TH PERCENTILE OFcTnI DISTRIBUTION IN A REFERENCE POPULATION, HAS BEEN CONFIRMED THE DECISION THRESHOLDFOR NV DIAGNOSIS. Performed By: #### C MREP ####[facility] [address]aszvmuvcp[address] [place] [address]Dr. Donna Malone CARDIAC MJ ADMITon 022 CK [Catalytic activity/Vol] 76 U/L Normal 39-308 [facility] Comment on above: Performed By: #### B TOWING PILOT, CMP, CMADM ####[facility] Qyud[address]izke[address] [place] [address]Dr. Donna Malone CK.MB [Mass/Vol] 2.59 ng/mL Normal <=3.60 [facility] Comment on above: Performed By: #### B TOWING PILOT, CMP, CMADM ####[facility] Bioqdttfvm[address] [place] [address]Dr. Donna Malone HSTROP 10.1 pg/mL Normal 4.0-76.1 [facility] Comment on above: Result Comment: CUT- OFF POINTS HAVE BEEN ESTABLISHED BASED ON THE FOURTH UNIVERSAL DEFINITIONS OF MYOCARDIALINFARCTION. THE UPPER REFERENCE LIMIT (URL) OF TROPONIN, DEFINED THE 99TH PERCENTILE OFcTnI DISTRIBUTION IN A REFERENCE POPULATION, HAS BEEN CONFIRMED THE DECISION THRESHOLDFOR NV DIAGNOSIS. Performed By: #### B TOWING PILOT, CMP, CMADM ####[facility] Nlzffhvqug[address] [place] [address]Dr. Donna Malone BINDU 109 ng/mL Critically high 16-96 [facility] Comment on above: Performed By: #### B TOWING PILOT, CMP, CMADM ####[facility] Gkkrqpxrbn1740 [place] [address]Dr. Donna Malone CBC AUTO DIFFon 07-15-2022 BASO # 0.0 103/ul Normal 0.0-0.1 [facility] Comment on above: Performed By: #### C BC ####[facility] Ixoqnccygy[address] [place], [place] [address]Dr. Donna Malone Basophils/100 WBC (Bld) 0.7 % Normal 0.2-2.0 [facility] Comment on above: Performed By: #### C BC ####[facility] Vqmvqwidlw[address] [place], [place] [address]Dr. Donna Malone EO # 0.1 103/ul Normal 0.0-0.7 [facility] Comment on above: Performed By: #### C BC ####[facility] Yckjgmvjwg[address] [place], [place] [address]Dr. Donna Malone Eosinophils/100 WBC (Bld) 2.3 % Normal 0.9-7.0 [facility] Comment on above: Performed By: #### C BC ####[facility] Yvsdovxqkl349[address] [place], [place] [address]Dr. Donna Malone Erythrocyte distribution width (RBC) [Ratio] 15.2 % Critically high 11.0-15.0 [facility] Comment on above: Performed By: #### C BC ####[facility] Mtrfotbgcv9[address] [place], [place] [address]Dr. Donna Malone Hematocrit (Bld) [Volume fraction] 34.8 % Critically low 42.0-54.0 [facility] Comment on above: Performed By: #### C BC ####[facility] Asfzzcxkwd78[address] [place] [phone]. Donna Malone Hemoglobin (Bld) [Mass/Vol] 11.4 g/dL Critically low 14.0-18.0 [facility] Comment on above: Performed By: #### C BC ####[facility] Kikfsptxvc20[address] [place] [address]Dr. Donna Malone IG # 0.01 10e3/ul Normal 0.00-0.03 [facility] Comment on above: Performed By: #### C BC ####[facility] Mfezbyvglu2536 [place] [address]Dr. Donna Malone IG % 0.2 % Normal 0.0-0.5 [facility] Comment on above: Performed By: #### C BC ####[facility] Rsauooqpae07[address] [place], [place] [address]Dr. Donna Malone LYMPH # 1.6 103/ul Normal 1.2-3.8 [facility] Comment on above: Performed By: #### C BC ####[facility] Kulaqipoqf90[address] [place] [address]Dr. Donna Malone Lymphocytes/100 WBC (Bld) 26.4 % Normal 20.5-60.0 [facility] Comment on above: Performed By: #### C BC ####[facility] Gqnhxzbiqv4[address] [place] [address]Dr. Donna Malone MANUAL DIFF REQ NO Normal [facility] Comment on above: Performed By: #### C BC ####[facility] Vmumjrchqw28[address] [place] [address]Dr. Donna Malone MCH (RBC) [Entitic mass] 30.7 pg Normal 25.9-34.0 [facility] Comment on above: Performed By: #### C BC ####[facility] Rnifovguwp5996 [place] [address]Dr. Donna Malone MCHC (RBC) [Mass/Vol] 32.8 g/dL Normal 29.9-35.2 [facility] Comment on above: Performed By: #### C BC ####[facility] Fxjfuwaymn4954 [place] [address]Dr. Donna Malone MCV (RBC) [Entitic vol] 93.8 fL Normal 80.0-94.0 [facility] Comment on above: Performed By: #### C BC ####[facility] Aqfgwsgtii9385 [place] [address]Dr. Donna Malone MONO # 0.5 103/ul Normal 0.3-0.8 [facility] Comment on above: Performed By: #### C BC ####[facility] Ikounezmgu6163 [place] [address]Dr. Donna Malone Monocytes/100 WBC (Bld) 7.5 % Normal 1.7-12.0 [facility] Comment on above: Performed By: #### C BC ####[facility] Errxbtsmac[address] [place], [place] [address]Dr. Donna Malone NEUT # 3.8 103/ul Normal 1.4-6.5 [facility] Comment on above: Performed By: #### C BC ####[facility] Axhzurqsue[address] [place], [place] [address]Dr. Donna Malone Neutrophils/100 WBC (Bld) 62.9 % Normal 43.0-75.0 [facility] Comment on above: Performed By: #### C BC ####[facility] Wkylkprooi[address] [place], [place] [address]Dr. Donna Malone Platelet mean volume (Bld) [Entitic vol] 11.7 fL Normal 9.5-13.5 [facility] Comment on above: Performed By: #### C BC ####[facility] Utrhqltlht69[address] [place] [address]Dr. Donna Malone PLT 220 103/ul Normal 150-450 [facility] Comment on above: Performed By: #### C BC ####[facility] Swovbatjix7[address] [place] [address]Dr. Donna Faisal RBC 3.71 106/ul Critically low 4.70-6.10 [facility] Comment on above: Performed By: #### C BC ####[facility] Cmqleqjiiw57[address] [place], [place] [address]Qt. Donna Malone WBC 6.0 103/ul Normal 4.0-11.0 [facility] Comment on above: Performed By: #### C BC ####[facility] Tkyvkvctet6798 [place], [place] [address]Oy. Donna Malone CT CSPINE WO CONon 2 CT CSPINE WO CON Normal [facility] CT HEAD WO CONon 07-15-2022 CT HEAD WO CON Normal [facility] CTA NECK WO W CONon 07-15-20 CTA NECK WO W CON Normal [facility] CULTURE URINEon 07-15-2022 CULTURE URINE Culture Observations : LIGHT GROWTH OF MIXED SKIN MICHAEL. NO POTENTIAL PATHOGENS SEEN. Normal [facility] Comment on above: Performed By: #### U RCX ####[facility] [address]fqyflfki18[address] [place], [place] [address]Ke. Donna Malone Covid-19 PCR (CVDTB)on SARS-CoV-2 (COVID-19) RNA JOSÉ MIGUEL+probe Ql (Unsp spec) Not detected Normal NOT DETECTED [facility] Comment on above: Result Comment: When [...] for this test is supported by the [place] of Health and Human Service's declaration that [...] be used). Performed By: #### C VDTBH ####[facility] Zraucwtyel[address] [place] [address]Dr. Donna Malone DEPAKENE/VALPROICon 07-15-20 22 DEPAKENE 53.6 ug/ml Normal 50.0-100.0 [facility] Comment on above: Performed By: #### V ALP ####[facility] Nepeqjolau[address] [place], [place] [address]Dr. Donna Malone DRUG SCREEN RAPID (URINE)on 07-15-2022 AMP Negative Normal NEGATIVE [facility] Comment on above: Performed By: #### D SHARONA, ERUR ####[facility] Bexgnxrona[address] [place] [address]Dr. Donna Malone BAR Negative Normal NEGATIVE [facility] Comment on above: Performed By: #### D SHARONA, ERUR ####[facility] Zhzzawabnb[address] [place], [place] [address]Dr. Donna Malone BUP Negative Normal NEGATIVE [facility] Comment on above: Performed By: #### Calvin TABOR, ERUR ####[facility] Dikfaauvqf26[address] [place] [address]Dr. Donna Malone BZO Positive Abnormal NEGATIVE [facility] Comment on above: Performed By: #### D SHARONA, ERUR ####[facility] Fitvqfjpsh57[address] [place] [address]Dr. Donna Malone EVONNE Negative Normal NEGATIVE [facility] Comment on above: Performed By: #### Calvin TABOR, ERUR ####[facility] Kmlrovfqyo[address] [place], [place] [address]Dr. Donna Malone CUT-OFFS SEE BELOW Normal [facility] Comment on above: Result Comment: AMP [...] ng/mL Performed By: #### Calvin TABOR, ERUR ####[facility] Crcasrrzhv6132 [place] [address]Dr. Donna Malone DRUG CUT HEADER DRUG CLASS TEST SYST EM CUT-OFF CONCENTRATIONS ARE FOLLOWS: Normal [facility] Comment on above: Performed By: #### Calvin TABOR, ERUR ####[facility] Qtudqshrou9083 [place] [address]Dr. Donna Malone mAMP Negative Normal NEGATIVE [facility] Comment on above: Performed By: #### Calvin TABOR, ERUR ####[facility] Fueajwscck[address] [place], [place] [address]Dr. Donna Malone MTD Negative Normal NEGATIVE [facility] Comment on above: Performed By: #### Calvin TABOR, ERUR ####[facility] Wfuvhebfqq[address] [place], [place] [address]Dr. Donna Malone OPI Negative Normal NEGATIVE [facility] Comment on above: Performed By: #### Calvin TABOR, ERUR ####[facility] Sbxpkldppf[address] [place], [place] [address]Dr. Rubyyvan Malone OXY Negative Normal NEGATIVE [facility] Comment on above: Performed By: #### Calvin TABOR, ERUR ####[facility] [address]isvtpxmg[address] [place], [place] [address]Dr. Donna Malone PCP Negative Normal NEGATIVE [facility] Comment on above: Performed By: #### Calvin TABOR, ERUR ####[facility] Joflvbcbce33[address] [place] [address]Dr. Donna Malone PPX Negative Normal NEGATIVE [facility] Comment on above: Performed By: #### Calvin TABOR, ERUR ####[facility] Qmecuwcggq10[address] [place], [place] [address]Dr. Donna Malone TCA Positive Abnormal NEGATIVE [facility] Comment on above: Performed By: #### Calvin TABOR, ERUR ####[facility] Ibubmeceee[address] [place], [place] [address]Dr. Donna Malone THC Negative Normal NEGATIVE [facility] Comment on above: Performed By: #### Calvin TABOR, ERUR ####[facility] Kmkvxkywlg5167 [place] [address]Dr. Rubyyvan Malone ER URINE PROFILEon 2 Bilirubin Ql (U) Negative Normal NEGATIVE [facility] Comment on above: Performed By: #### Calvin TABOR, ERUR ####[facility] Dqfiqvbbqe65[address] [place] [address]Dr. Donna Malone Clarity (U) CLEAR Normal CLEAR [facility] Comment on above: Performed By: #### Calvin TABOR, ERUR ####[facility] Nbxwwstxbn7684 [place] [address]Dr. Donna Faisal Color (U) YELLOW Normal YELLOW [facility] Comment on above: Performed By: #### Calvin TABOR, ERUR ####[facility] Eijypanqrg[address] [place] [address]Dr. Donna Malone ERUAHD A micrscopic examina tion will be performed if indicated. Normal [facility] Comment on above: Performed By: #### Calvin TABOR, ERUR ####[facility] [address]tdlwuryrm[address] [place], [place] [address]Dr. Donna Faisal Glucose Ql (U) Negative Normal NEGATIVE [facility] Comment on above: Performed By: #### Calvin TABOR, ERUR ####[facility] Nezbembeav5878 [place] [address]Dr. Donna Malone Hemoglobin Ql (U) Negative Normal NEGATIVE [facility] Comment on above: Performed By: #### Calvin TABOR, ERUR ####[facility] Oovyfdlfhj65[address] [place] [address]Dr. Donna Malone Ketones Ql (U) 15 mg/dl Abnormal NEGATIVE [facility] Comment on above: Performed By: #### Calvin TABOR, ERUR ####[facility] Behrddlzwu35[address] [place] [address]Dr. Donna Malone LEUKOCYTES Negative Normal NEGATIVE [facility] Comment on above: Performed By: #### D SHARONA, ERUR ####[facility] Hsyrbycwxm4490 [place] [address]Dr. Donna Malone Nitrite Ql (U) Negative Normal NEGATIVE [facility] Comment on above: Performed By: #### D SHARONA, ERUR ####[facility] Teqmdjaqua2753 [place] [address]Dr. Donna Malone pH (U) 6.0 [pH] Normal 5-9 [facility] Comment on above: Performed By: #### Calvin TABOR, ERUR ####[facility] Vluwcmtvmi7156 [place] [address]Dr. Donna Malone SPEC GRAVITY >=1.030 Abnormal 1.005-<=1. 025 [facility] Comment on above: Performed By: #### Calvin TABOR, ERUR ####[facility] Iouflibnmt[address] [place], [place] [address]Dr. Donna Malone UA PROTEIN TRACE Normal NEGATIVE/ TRACE [facility] Comment on above: Performed By: #### Calvin TABOR, ERUR ####[facility] Aqbwrpbntt[address] [place], [place] [address]Dr. Donna Malone UR MICRO IND NOT INDICATED Normal [facility] Comment on above: Performed By: #### Calvin TABOR, ERUR ####[facility] Oxlezumgms2[address] [place], [place] [address]Dr. Donna Malone Urobilinogen Qn (U) 0.2 {Jermain'U}/dL Normal 0.2 - 1. 0 [facility] Comment on above: Performed By: #### Calvin TABOR, ERUR ####[facility] Fevqmnenkz4[address] [place], [place] [address]Dr. Donna Malone ETHANOL (BLD ALC)on 07-15-20 ALC NOTE NOTE: 80 mg/dl is th e legal limit for a blood alcohol level Normal [facility] Comment on above: Performed By: #### E TH ####[facility] Doexgqieoc[address] [place], [place] [address]Dr. Donna Malone Ethanol [Mass/Vol] mg/dL Normal [facility] Comment on above: Performed By: #### E TH ####[facility] Aamsqgjgou[address] [place] [address]Dr. Donna Malone LACTATE/LACTIC ACIDon 2021 Lactate [Moles/Vol] 1.3 mmol/L Normal 0.4-1.9 [facility] Comment on above: Performed By: #### L ACT ####[facility] Vchlxnzzzz24[address] [place] [address]Dr. Donna Malone PROF 14(COMP METB)on 022 Albumin [Mass/Vol] 2.9 g/dL Critically low 3.4-5.0 [facility] Comment on above: Performed By: #### B TOWING PILOT, CMP, CMADM ####[facility] Akjtlikhyg[address] [place] [address]Dr. Donna Malone Albumin/Globulin [Mass ratio] 0.9 {ratio} Normal [facility] Comment on above: Performed By: #### B TOWING PILOT, CMP, CMADM ####[facility] Oytgwbtcqi3476 [place] [address]Dr. Donna Malone ALP [Catalytic activity/Vol] 37 U/L Critically low 46-116 [facility] Comment on above: Performed By: #### B TOWING PILOT, CMP, CMADM ####[facility] Ylaxebpffm[address] [place] [address]Dr. Donna Malone ALT [Catalytic activity/Vol] 10 U/L Critically low 16-63 [facility] Comment on above: Performed By: #### B TOWING PILOT, CMP, CMADM ####[facility] Jprtfshzul0586 [place] [address]Dr. Donna Malone Anion gap [Moles/Vol] 8.0 mmol/L Normal [facility] Comment on above: Performed By: #### B TOWING PILOT, CMP, CMADM ####[facility] Xffuvmrbhg3987 [place] [address]Dr. Donna Malone AST [Catalytic activity/Vol] 12 U/L Critically low 15-37 [facility] Comment on above: Performed By: #### B TOWING PILOT, CMP, CMADM ####[facility] Uhrflizxda7[address] [place] [id number]. Donna Malone Bilirubin [Mass/Vol] 0.3 mg/dL Normal 0.2-1.0 [facility] Comment on above: Performed By: #### B TOWING PILOT, CMP, CMADM ####[facility] Rwpapwkjfc6[address] [place] [address]Dr. Donna Malone Calcium [Mass/Vol] 7.9 mg/dL Critically low 8.5-10.1 [facility] Comment on above: Performed By: #### B TOWING PILOT, CMP, CMADM ####[facility] Bqwkiqvodw60[address] [place] [address]Dr. Donna Malone Chloride [Moles/Vol] 107 mmol/L Normal 98-107 [facility] Comment on above: Performed By: #### B TOWING PILOT, CMP, CMADM ####[facility] Xvcfbxybub9305 [place] [address]Dr. Donna Malone CO2 [Moles/Vol] 27.1 mmol/L Normal 21.0-32.0 [facility] Comment on above: Performed By: #### B TOWING PILOT, CMP, CMADM ####[facility] Zrnukqmntk8936 [place] [address]Dr. Donna Malone Creatinine [Mass/Vol] 0.99 mg/dL Normal 0.70-1.30 [facility] Comment on above: Performed By: #### B TOWING PILOT, CMP, CMADM ####[facility] Dluujofnfo3270 [place] [address]Dr. Donna Malone EGFR-AF SLOVAK >60 Normal >=60 [facility] Comment on above: Performed By: #### B TOWING PILOT, CMP, CMADM ####[facility] Ayjibydlvl8029 [place] [address]Dr. Donna Malone EGFR-NON AF [place]OVAK >60 Normal >=60 [facility] Comment on above: Performed By: #### B TOWING PILOT, CMP, CMADM ####[facility] Adfevgkegb8650 [place] [address]Dr. Donna Malone Globulin (S) [Mass/Vol] 3.3 g/dL Normal [facility] Comment on above: Performed By: #### B TOWING PILOT, CMP, CMADM ####[facility] Iruunhejvr2103 [place] [address]Dr. Donna Malone Glucose [Mass/Vol] 101 mg/dL Normal 74-106 [facility] Comment on above: Performed By: #### B TOWING PILOT, CMP, CMADM ####[facility] Epaaxnugoa3571 [place] [address]Dr. Donna Malone Potassium [Moles/Vol] 4.1 mmol/L Normal 3.5-5.1 [facility] Comment on above: Performed By: #### B TOWING PILOT, CMP, CMADM ####[facility] Xoczogxlfj3497 [place] [address]Dr. Donna Malone Protein [Mass/Vol] 6.2 g/dL Critically low 6.4-8.2 [facility] Comment on above: Performed By: #### B TOWING PILOT, CMP, CMADM ####[facility] Qtjntbparr6764 [place] [address]Dr. Donna Malone Sodium [Moles/Vol] 138 mmol/L Normal 136-145 [facility] Comment on above: Performed By: #### B TOWING PILOT, CMP, CMADM ####[facility] Bwkkyktsmu4632 [place] [address]Dr. Dnona Malone Urea nitrogen [Mass/Vol] 16.0 mg/dL Normal 7.0-18.0 [facility] Comment on above: Performed By: #### B TOWING PILOT, CMP, CMADM ####[facility] Nfowrxkamj9497 [place] [address]Dr. Donna Malone Urea nitrogen/Creatinine [Mass ratio] 16.2 mg/mg Normal [facility] Comment on above: Performed By: #### B TOWING PILOT, CMP, CMADM ####[facility] Dberoemvra5039 [place] [address]Dr. Donna Malone PROTIMEon 07-15-2022 INR Coag (PPP) [Relative time] 1.06 {INR} Normal [facility] Comment on above: Performed By: #### P T, PTT ####[facility] Rdtzwejrgj9[address] [place] [phone]. Donna Malone INR GUIDELINES SEE BELOW Normal [facility] Comment on above: Result Comment: FLORESITA RED INR: 2.0 - 3.0 CONDITIONS NOT LISTED BELOW 2.5 - 3.5 FOR PROSTHETIC HEART VALVE REPLACEMENT 2.5 - 3.5 RECURRENT THROMBOSIS Performed By: #### P T, PTT ####[facility] Rgrqnpsgmr[address] [place], [place] [address]Dr. Donna Malone PT Coag (PPP) [Time] 11.4 s Normal 9.0-11.6 [facility] Comment on above: Performed By: #### P T, PTT ####[facility] Vpjdbptnkv56[address] [place], [place] [address]Dr. Donna Malone PTTon 07-15-2022 aPTT Coag (Bld) [Time] 30.8 s Normal 22.3-36.2 [facility] Comment on above: Performed By: #### P T, PTT ####[facility] Avpzddcppg44[address] [place], [place] [address]Dr. Donna Malone XR CHEST 1 Von 07-15-2022 XR CHEST 1 V Normal [facility] CULTURE URINEon 06-24-2022 CULTURE URINE Normal [facility] Comment on above: Performed By: #### U RCX ####[facility] Dnjxoizqur[address] [place], [place] [address]Dr. Donna Malone UA RANDOM W/MICROSCOPICon BACTERIA NONE SEEN Normal NONE SEEN [facility] Comment on above: Performed By: #### U AMIC ####[facility] Smqzeryecg70[address] [place], [place] [address]Dr. Donna Malone Bilirubin Ql (U) Negative Normal NEGATIVE [facility] Comment on above: Performed By: #### U AMIC ####[facility] Zklqnmgnmc50[address] [place], [place] [address]Dr. Donna Malone CAST NONE SEEN Normal NONE SEEN [facility] Comment on above: Performed By: #### U AMIC ####[facility] Mmjktstich8[address] [place], [place] [address]Dr. Donna Malone Clarity (U) CLEAR Normal CLEAR [facility] Comment on above: Performed By: #### U AMIC ####[facility] Ywjlwaxeun26[address] [place] [address]Dr. Donna Malone Color (U) DK. YELLOW Normal YELLOW [facility] Comment on above: Performed By: #### U AMIC ####[facility] Npzaomqhpp6074 [place] [address]Dr. Donna Malone Crystals LM Nom (Urine sed) NONE SEEN Normal NONE SEEN [facility] Comment on above: Performed By: #### U AMIC ####[facility] Zaqxvcnudy5[address] [place], [place] [address]Dr. Donna Malone Epithelial cells LM Ql (Urine sed) NONE SEEN Normal NONE SEEN /RARE [facility] Comment on above: Performed By: #### U AMIC ####[facility] Lvmvvckjng5[address] [place], [place] [address]Dr. Donna Malone Glucose Ql (U) 100 mg/dl Abnormal NEGATIVE [facility] Comment on above: Performed By: #### U AMIC ####[facility] Xtlvqjfvwk[address] [place], [place] [address]Dr. Donna Malone Hemoglobin Ql (U) Negative Normal NEGATIVE [facility] Comment on above: Performed By: #### U AMIC ####[facility] Kjfsrurpuj[address] [place], [place] [address]Dr. Donna Malone Ketones Ql (U) TRACE Abnormal NEGATIVE [facility] Comment on above: Performed By: #### U AMIC ####[facility] Fzewzqyflv[address] [place], [place] [address]Dr. Donna Malone LEUKOCYTES Negative Normal NEGATIVE [facility] Comment on above: Performed By: #### U AMIC ####[facility] Tnwsvtdxyq[address] [place], [place] [address]Dr. Donna Malone MUCOUS SMALL Abnormal NONE SEEN [facility] Comment on above: Performed By: #### U AMIC ####[facility] Qipwwqhovb[address] [place], [place] [address]Dr. Donna Malone Nitrite Ql (U) Negative Normal NEGATIVE [facility] Comment on above: Performed By: #### U AMIC ####[facility] Nkxnscljvy5826 [place] [address]Dr. Donna Malone pH (U) 6.0 [pH] Normal 5-9 [facility] Comment on above: Performed By: #### U AMIC ####[facility] Otxeycyxiv5790 [place] [address]Dr. Donna Malone RBC NONE SEEN Abnormal 0-2 [facility] Comment on above: Performed By: #### U AMIC ####[facility] Joliskgjlu7207 [place] [address]Dr. Donna Malone SPEC GRAVITY 1.030 Abnormal 1.005-<=1. 025 [facility] Comment on above: Performed By: #### U AMIC ####[facility] Jlepsxncbf2150 [place] [address]Dr. Donna Malone UA PROTEIN Negative Normal NEGATIVE/ TRACE [facility] Comment on above: Performed By: #### U AMIC ####[facility] Humgxpqkhd[address] [place], [place] [address]Dr. Donna Malone Urobilinogen Qn (U) 0.2 {Jermain'U}/dL Normal 0.2 - 1. 0 [facility] Comment on above: Performed By: #### U AMIC ####[facility] Xprbjyuiqp6644 [place] [address]Dr. Donna Malone WBC 2-5 Abnormal NONE SEEN [facility] Comment on above: Performed By: #### U AMIC ####[facility] Qwsdcauyig4[address] [place], [place] [address]Dr. Donna Malone COMPLIANCE DRUG SCREENon PDF . Normal [facility] Comment on above: Performed By: #### D SDOALC ####[facility] Ippycufskt[address] [place], [place] [address]Dr. Donna Malone Summary FINAL Normal [facility] Comment on above: Result Comment: =====TOXASSURE [...] call . Performed By: #### D SDOALC ####[place] [address]Dr. Donna Malone CBC AUTO DIFFon 05-16-2022 BASO # 0.0 103/ul Normal 0.0-0.1 [facility] Comment on above: Performed By: #### C BC ####[facility] Wyelfzkqkp8[address] [place], [place] [address]DrElizabeth Malone Basophils/100 WBC (Bld) 0.4 % Normal 0.2-2.0 [facility] Comment on above: Performed By: #### C BC ####[facility] Unozecothk20[address] [place], [place] [address]DrElizabeth Malone EO # 0.1 103/ul Normal 0.0-0.7 [facility] Comment on above: Performed By: #### C BC ####[facility] Cwmkcyihek[address] [place], [place] [address]Dr. Donna Malone Eosinophils/100 WBC (Bld) 0.9 % Normal 0.9-7.0 [facility] Comment on above: Performed By: #### C BC ####[facility] Hwfkbpqnzl2324 [place] [address]Dr. Donna Malone Erythrocyte distribution width (RBC) [Ratio] 14.9 % Normal 11.0-15.0 [facility] Comment on above: Performed By: #### C BC ####[facility] Fnolmpmwcr4[address] [place], [place] [address]Dr. Donna Malone Hematocrit (Bld) [Volume fraction] 41.0 % Critically low 42.0-54.0 [facility] Comment on above: Performed By: #### C BC ####[facility] Xboeksdfqv2407[address] [place], [place] [address]Dr. Donna Malone Hemoglobin (Bld) [Mass/Vol] 13.3 g/dL Critically low 14.0-18.0 [facility] Comment on above: Performed By: #### C BC ####[facility] Vosfyapygl30[address] [place], [place] [address]Dr. Donna Malone IG # 0.03 10e3/ul Normal 0.00-0.03 [facility] Comment on above: Performed By: #### C BC ####[facility] Fadariedyc[address] [place], [place] [address]Dr. Donna Malone IG % 0.3 % Normal 0.0-0.5 [facility] Comment on above: Performed By: #### C BC ####[facility] Skutndbezl5[address] [place], [place] [address]Dr. Donna Malone LYMPH # 1.4 103/ul Normal 1.2-3.8 [facility] Comment on above: Performed By: #### C BC ####[facility] Cxkayutlqc7023[address] [place], [place] [address]Dr. Donna Malone Lymphocytes/100 WBC (Bld) 15.3 % Critically low 20.5-60.0 [facility] Comment on above: Performed By: #### C BC ####[facility] Ainatvsyij5596 [place] [address]Dr. Donna Faisal MANUAL DIFF REQ NO Normal [facility] Comment on above: Performed By: #### C BC ####[facility] Ywjhobomwk0572 [place] [address]Dr. Donna Faisal MCH (RBC) [Entitic mass] 29.4 pg Normal 25.9-34.0 [facility] Comment on above: Performed By: #### C BC ####[facility] Jvtcfalcmd70[address] [place], [place] [address]Dr. Donna Faisal MCHC (RBC) [Mass/Vol] 32.4 g/dL Normal 29.9-35.2 [facility] Comment on above: Performed By: #### C BC ####[facility] Lovaisolem5915[address] [place], [place] [address]Dr. Rubyyvan Malone MCV (RBC) [Entitic vol] 90.5 fL Normal 80.0-94.0 [facility] Comment on above: Performed By: #### C BC ####[facility] Rdquzavoqo7204[address] [place], [place] [address]Dr. Rubyyvan Malone MONO # 0.8 103/ul Normal 0.3-0.8 [facility] Comment on above: Performed By: #### C BC ####[facility] Ttsnpovxub38[address] [place], [place] [address]Dr. Donna Malone Monocytes/100 WBC (Bld) 8.7 % Normal 1.7-12.0 [facility] Comment on above: Performed By: #### C BC ####[facility] Sfuwacchic6[address] [place], [place] [address]DrElizabeth Malone NEUT # 6.9 103/ul Critically high 1.4-6.5 [facility] Comment on above: Performed By: #### C BC ####[facility] Copeepjcwx04[address] [place], [place] [address]Dr. Donna Malone Neutrophils/100 WBC (Bld) 74.4 % Normal 43.0-75.0 [facility] Comment on above: Performed By: #### C BC ####[facility] Agasjccazu[address] [place], [place] [address]Dr. Donna Malone Platelet mean volume (Bld) [Entitic vol] 11.9 fL Normal 9.5-13.5 [facility] Comment on above: Performed By: #### C BC ####[facility] Teqxxkucjt0497 [place] [address]Dr. Donna Malone PLT 174 103/ul Normal 150-450 [facility] Comment on above: Performed By: #### C BC ####[facility] Wkxqbqohxh2032 [place] [address]Dr. Donna Malone RBC 4.53 106/ul Critically low 4.70-6.10 [facility] Comment on above: Performed By: #### C BC ####[facility] Spvfhkjois8147 [place] [address]Dr. Donna Malone WBC 9.2 103/ul Normal 4.0-11.0 [facility] Comment on above: Performed By: #### C BC ####[facility] Llazmftfnn9032 [place] [address]DrElizabeth Malone PROF 14(COMP METB)on 022 Albumin [Mass/Vol] 3.0 g/dL Critically low 3.4-5.0 [facility] Comment on above: Performed By: #### C MP ####[facility] Yaglbvoxgt3151 [place] [address]Dr. Donna Malone Albumin/Globulin [Mass ratio] 0.8 {ratio} Normal [facility] Comment on above: Performed By: #### C MP ####[facility] Cjdfrqmrlg3895 [place] [address]Dr. Donna Malone ALP [Catalytic activity/Vol] 39 U/L Critically low 46-116 [facility] Comment on above: Performed By: #### C MP ####[facility] Azdhlznppz7811 [place] [address]DrElizabeth Malone ALT [Catalytic activity/Vol] 16 U/L Normal 16-63 [facility] Comment on above: Performed By: #### C MP ####[facility] Wlnrkglxan1104 [place] [address]Dr. Donna Malone Anion gap [Moles/Vol] 10.8 mmol/L Normal [facility] Comment on above: Performed By: #### C MP ####[facility] Ddqiflxtcx5002 [place] [address]Dr. Donna Malone AST [Catalytic activity/Vol] 9 U/L Critically low 15-37 [facility] Comment on above: Performed By: #### C MP ####[facility] Vtvyitwzof6[address] [place], [place] [address]Dr. Donna Malone Bilirubin [Mass/Vol] 0.3 mg/dL Normal 0.2-1.0 [facility] Comment on above: Performed By: #### C MP ####[facility] Dxdnfhpymn4357[address] [place], [place] [address]Dr. Donna Malone Calcium [Mass/Vol] 8.8 mg/dL Normal 8.5-10.1 [facility] Comment on above: Performed By: #### C MP ####[facility] Odfqtagphd[address] [place], [place] [address]Dr. Donna Malone Chloride [Moles/Vol] 105 mmol/L Normal 98-107 [facility] Comment on above: Performed By: #### C MP ####[facility] Aivwlhhqbn26[address] [place], [place] [address]Dr. Donna Malone CO2 [Moles/Vol] 26.7 mmol/L Normal 21.0-32.0 [facility] Comment on above: Performed By: #### C MP ####[facility] Sqpyllkekc359[address] [place], [place] [address]Dr. Donna Malone Creatinine [Mass/Vol] 0.97 mg/dL Normal 0.70-1.30 [facility] Comment on above: Performed By: #### C MP ####[facility] Wgzdtvpgsr156[address] [place], [place] [address]Dr. Donna Faisal EGFR-AF SLOVAK >60 Normal >=60 [facility] Comment on above: Performed By: #### C MP ####[facility] Elfwohsvfq8037[address] [place], [place] [address]Dr. Rubyyvan Malone EGFR-NON AF SLOVAK >60 Normal >=60 [facility] Comment on above: Performed By: #### C MP ####[facility] Vjqecumcgz5792 [place] [address]Dr. Donna Malone Globulin (S) [Mass/Vol] 3.7 g/dL Normal [facility] Comment on above: Performed By: #### C MP ####[facility] Ficjcngdgo5129 [place] [address]Dr. Donna Malone Glucose [Mass/Vol] 98 mg/dL Normal 74-106 [facility] Comment on above: Performed By: #### C MP ####[facility] Nskojuobkm0839 [place] [address]Dr. Donna Malone Potassium [Moles/Vol] 3.5 mmol/L Normal 3.5-5.1 [facility] Comment on above: Performed By: #### C MP ####[facility] Rzbhsrmiuq64[address] [place], [place] [address]Dr. Donna Malone Protein [Mass/Vol] 6.7 g/dL Normal 6.4-8.2 [facility] Comment on above: Performed By: #### C MP ####[facility] Pmujuqzjsp0105[address] [place], [place] [address]Dr. Donna Malone Sodium [Moles/Vol] 139 mmol/L Normal 136-145 [facility] Comment on above: Performed By: #### C MP ####[facility] Zdltorcsgk3524[address] [place], [place] [address]Dr. Donna Malone Urea nitrogen [Mass/Vol] 11.0 mg/dL Normal 7.0-18.0 [facility] Comment on above: Performed By: #### C MP ####[facility] Ybmcgiabjr63[address] [place], [place] [address]Dr. Donna Malone Urea nitrogen/Creatinine [Mass ratio] 11.3 mg/mg Normal [facility] Comment on above: Performed By: #### C MP ####[facility] Reslshpqow524[address] [place], [place] [address]Dr. Donna Faisal T3, TOTAL (TRIIODOTHYRONINE) on 05-16-2022 T3, TOTAL 86 ng/dL Normal 71-180 [facility] Comment on above: Performed By: #### T 3TOTAL ####[facility] Xurpxwnkdu3278[address] [place], [place] [address]Dr. Donna Malone T4 LABCORPon 05-16-2022 T4 [Mass/Vol] 6.4 ug/dL Normal 4.5-12.0 [facility] Comment on above: Performed By: #### T 4LC ####[facility] Yhiicrpcwc8832[address] [place], [place] [address]Dr. Donna Malone CBC AUTO DIFFon 05-15-2022 BASO # 0.0 103/ul Normal 0.0-0.1 [facility] Comment on above: Performed By: #### C BC ####[facility] Idacixrylo[address] [place], [place] [address]Dr. Donna Malone Basophils/100 WBC (Bld) 0.3 % Normal 0.2-2.0 [facility] Comment on above: Performed By: #### C BC ####[facility] Kavyhynatd8967[address] [place], [place] [address]Dr. Donna Malone EO # 0.2 103/ul Normal 0.0-0.7 [facility] Comment on above: Performed By: #### C BC ####[facility] Kodnxsliuq1023[address] [place], [place] [address]Dr. Donna Malone Eosinophils/100 WBC (Bld) 2.0 % Normal 0.9-7.0 [facility] Comment on above: Performed By: #### C BC ####[facility] Ogfiocttyz522[address] [place], [place] [address]Dr. Donna Malone Erythrocyte distribution width (RBC) [Ratio] 14.6 % Normal 11.0-15.0 [facility] Comment on above: Performed By: #### C BC ####[facility] Kjjvigyrgu[address] [place], [place] [address]Dr. Donna Malone Hematocrit (Bld) [Volume fraction] 38.2 % Critically low 42.0-54.0 [facility] Comment on above: Performed By: #### C BC ####[facility] Sivngkhpcj8526 [place] [address]Dr. Donna Malone Hemoglobin (Bld) [Mass/Vol] 12.7 g/dL Critically low 14.0-18.0 [facility] Comment on above: Performed By: #### C BC ####[facility] Gcsuiegpwn4276 [place] [address]Dr. Donna Malone IG # 0.04 10e3/ul Critically high 0.00-0.03 [facility] Comment on above: Performed By: #### C BC ####[facility] Mjvrstqurh9673 [place] [address]Dr. Donna Malone IG % 0.4 % Normal 0.0-0.5 [facility] Comment on above: Performed By: #### C BC ####[facility] Dwwrwogfsu[address] [place], [place] [address]Dr. Donna Malone LYMPH # 1.4 103/ul Normal 1.2-3.8 [facility] Comment on above: Performed By: #### C BC ####[facility] Uhajdcorbm[address] [place], [place] [address]Dr. Donna Malone Lymphocytes/100 WBC (Bld) 14.9 % Critically low 20.5-60.0 [facility] Comment on above: Performed By: #### C BC ####[facility] Shnwewfoaq0589 [place] [address]Dr. Donna Malone MANUAL DIFF REQ NO Normal [facility] Comment on above: Performed By: #### C BC ####[facility] Rflttoqdzk[address] [place], [place] [address]Dr. Donna Malone MCH (RBC) [Entitic mass] 30.0 pg Normal 25.9-34.0 [facility] [facility] Comment on above: Performed By: #### C BC ####[facility] Lqnvvglwuw4[address] [place], [place] [address]Dr. Donna Malone MCHC (RBC) [Mass/Vol] 33.2 g/dL Normal 29.9-35.2 [facility] Comment on above: Performed By: #### C BC ####[facility] [address] [place] [id number]. Donna Malone MCV (RBC) [Entitic vol] 90.3 fL Normal 80.0-94.0 [facility] Comment on above: Performed By: #### C BC ####[facility] Elckezljyz[address] [place] [id number]. Donna Malone MONO # 0.8 103/ul Normal 0.3-0.8 [facility] Comment on above: Performed By: #### C BC ####[facility] Mdwzpwzdxt78[address] [place] [id number]. Donna Malone Monocytes/100 WBC (Bld) 8.5 % Normal 1.7-12.0 [facility] Comment on above: Performed By: #### C BC ####[facility] Wituqxwido14[address] [place] [address]Dr. Donna Malone NEUT # 6.8 103/ul Critically high 1.4-6.5 [facility] Comment on above: Performed By: #### C BC ####[facility] Vciyvfgnqt4[address] [place] [address]Dr. Donna Malone Neutrophils/100 WBC (Bld) 73.9 % Normal 43.0-75.0 [facility] Comment on above: Performed By: #### C BC ####[facility] Cgvgymuhlt32[address] [place] [address]Dr. Donna Malone Platelet mean volume (Bld) [Entitic vol] 12.0 fL Normal 9.5-13.5 [facility] Comment on above: Performed By: #### C BC ####[facility] Taupdtmuag[address] [place] [address]Dr. Donna Malone PLT 154 103/ul Normal 150-450 [facility] Comment on above: Performed By: #### C BC ####[facility] Vwbvppcopv750[address] [place] [address]Dr. Donna Malone RBC 4.23 106/ul Critically low 4.70-6.10 [facility] Comment on above: Performed By: #### C BC ####[facility] Qoluvwpybt5[address] [place] [address]Dr. Rubyyvan Faisal WBC 9.2 103/ul Normal 4.0-11.0 [facility] Comment on above: Performed By: #### C BC ####[facility] Qhdmnwiyjm56[address] [place], [place] [address]Dr. Donna Malone PROF 14(COMP METB)on 022 Albumin [Mass/Vol] 2.9 g/dL Critically low 3.4-5.0 [facility] Comment on above: Performed By: #### C MP ####[facility] Xnffknystp6[address] [place], [place] [address]Dr. Donna Malone Albumin/Globulin [Mass ratio] 0.9 {ratio} Normal [facility] Comment on above: Performed By: #### C MP ####[facility] Hxorgjgqlm[address] [place], [place] [address]Dr. Donna Malone ALP [Catalytic activity/Vol] 41 U/L Critically low 46-116 [facility] Comment on above: Performed By: #### C MP ####[facility] Pnhofbfeig38[address] [place], [place] [address]Dr. Donna Malone ALT [Catalytic activity/Vol] 12 U/L Critically low 16-63 [facility] Comment on above: Performed By: #### C MP ####[facility] Onvxqcajgv8136[address] [place], [place] [address]Dr. Donna Malone Anion gap [Moles/Vol] 5.6 mmol/L Normal [facility] Comment on above: Performed By: #### C MP ####[facility] Gzuskyblnd[address] [place], [place] [address]Dr. Donna Malone AST [Catalytic activity/Vol] 8 U/L Critically low 15-37 [facility] Comment on above: Performed By: #### C MP ####[facility] Riwmctxmou6848[address] [place], [place] [address]Dr. Donna Malone Bilirubin [Mass/Vol] 0.5 mg/dL Normal 0.2-1.0 [facility] Comment on above: Performed By: #### C MP ####[facility] Hwjxfqffno8[address] [place] [address]Dr. Donna Malone Calcium [Mass/Vol] 8.3 mg/dL Critically low 8.5-10.1 [facility] Comment on above: Performed By: #### C MP ####[facility] [address]ws[address] [place] [address]Dr. Donna Malone Chloride [Moles/Vol] 106 mmol/L Normal 98-107 [facility] Comment on above: Performed By: #### C MP ####[facility] Wfkdcfzmtt27[address] [place], [place] [address]Dr. Donna Malone CO2 [Moles/Vol] 23.1 mmol/L Normal 21.0-32.0 [facility] Comment on above: Performed By: #### C MP ####[facility] Xztwfpaoer8287[address] [place], [place] [address]Dr. Donna Malone Creatinine [Mass/Vol] 0.82 mg/dL Normal 0.70-1.30 [facility] Comment on above: Performed By: #### C MP ####[facility] Vhhtvziius5566[address] [place], [place] [address]Dr. Donna Malone EGFR-AF SLOVAK >60 Normal >=60 [facility] Comment on above: Performed By: #### C MP ####[facility] Qnvnxmytey[address] [place], [place] [address]Dr. Donna Malone EGFR-NON AF SLOVAK >60 Normal >=60 [facility] Comment on above: Performed By: #### C MP ####[facility] Jjyvkubvkz01[address] [place], [place] [address]Dr. Donna Malone Globulin (S) [Mass/Vol] 3.2 g/dL Normal [facility] Comment on above: Performed By: #### C MP ####[facility] Tqpshszjfa614[address] [place], [place] [address]Dr. Donna Faisal Glucose [Mass/Vol] 81 mg/dL Normal 74-106 [facility] Comment on above: Performed By: #### C MP ####[facility] Xfkndhhmmo974[address] [place], [place] [address]Dr. Donna Malone Potassium [Moles/Vol] 3.7 mmol/L Normal 3.5-5.1 [facility] Comment on above: Performed By: #### C MP ####[facility] Qkwamfsecw2924[address] [place], [place] [address]Dr. Donna Malone Protein [Mass/Vol] 6.1 g/dL Critically low 6.4-8.2 [facility] Comment on above: Performed By: #### C MP ####[facility] Yoxjeqecnq1784[address] [place], [place] [address]Dr. Donna Malone Sodium [Moles/Vol] 131 mmol/L Critically low 136-145 [facility] Comment on above: Performed By: #### C MP ####[facility] Fsrmzjuwgh3780[address] [place], [place] [address]Dr. Donna Malone Urea nitrogen [Mass/Vol] 17.0 mg/dL Normal 7.0-18.0 [facility] Comment on above: Performed By: #### C MP ####[facility] Attijjnzmx4694[address] [place], [place] [address]Dr. Donna Malone Urea nitrogen/Creatinine [Mass ratio] 20.7 mg/mg Normal [facility] Comment on above: Performed By: #### C MP ####[facility] Gmtzwppzez26[address] [place], [place] [address]Dr. Donna Malone CBC AUTO DIFFon 05-14-2022 BASO # 0.1 103/ul Normal 0.0-0.1 [facility] Comment on above: Performed By: #### C BC ####[facility] Joucwfgrax6933[address] [place], [place] [address]Dr. Donna Malone Basophils/100 WBC (Bld) 0.8 % Normal 0.2-2.0 [facility] Comment on above: Performed By: #### C BC ####[facility] Zrzobgvxle8106[address] [place], [place] [address]Dr. Donna Malone EO # 0.3 103/ul Normal 0.0-0.7 [facility] Comment on above: Performed By: #### C BC ####[facility] Cswyjmftfg4787[address] [place], [place] [address]Dr. Donna Malone Eosinophils/100 WBC (Bld) 4.2 % Normal 0.9-7.0 [facility] Comment on above: Performed By: #### C BC ####[facility] Xmrjqmsvqk22[address] [place] [address]Dr. Donna Malone Erythrocyte distribution width (RBC) [Ratio] 14.7 % Normal 11.0-15.0 [facility] Comment on above: Performed By: #### C BC ####[facility] Qkwknpoeth8100[address] [place], [place] [address]Dr. Donna Malone Hematocrit (Bld) [Volume fraction] 36.5 % Critically low 42.0-54.0 [facility] Comment on above: Performed By: #### C BC ####[facility] Okdnjrukzu1555[address] [place], [place] [address]Dr. Donna Malone Hemoglobin (Bld) [Mass/Vol] 11.9 g/dL Critically low 14.0-18.0 [facility] Comment on above: Performed By: #### C BC ####[facility] Qauekbephh[address] [place], [place] [address]Dr. Donna Malone IG # 0.01 10e3/ul Normal 0.00-0.03 [facility] Comment on above: Performed By: #### C BC ####[facility] Vshtglytpn8746[address] [place], [place] [address]Dr. Donna Malone IG % 0.2 % Normal 0.0-0.5 [facility] Comment on above: Performed By: #### C BC ####[facility] Mipekpioah4459[address] [place], [place] [address]Dr. Donna Malone LYMPH # 2.1 103/ul Normal 1.2-3.8 [facility] Comment on above: Performed By: #### C BC ####[facility] Ggwwqglird1928[address] [place], [place] [address]Dr. Donna Malone Lymphocytes/100 WBC (Bld) 32.1 % Normal 20.5-60.0 [facility] Comment on above: Performed By: #### C BC ####[facility] [address]dc[address]vcyz[address] [place] [address]Dr. Rubyyvan Malone MANUAL DIFF REQ NO Normal [facility] Comment on above: Performed By: #### C BC ####[facility] Vrqmjfmsqg429[address] [place], [place] [address]Dr. Donna Faisal MCH (RBC) [Entitic mass] 29.7 pg Normal 25.9-34.0 [facility] Comment on above: Performed By: #### C BC ####[facility] Xkqdtpetbz5864[address] [place], [place] [address]Dr. Donna Faisal MCHC (RBC) [Mass/Vol] 32.6 g/dL Normal 29.9-35.2 [facility] Comment on above: Performed By: #### C BC ####[facility] Opyorseidr9[address] [place], [place] [address]Dr. Donna Malone MCV (RBC) [Entitic vol] 91.0 fL Normal 80.0-94.0 [facility] Comment on above: Performed By: #### C BC ####[facility] Bxdmawkdjb[address] [place], [place] [address]Dr. Donna Malone MONO # 0.5 103/ul Normal 0.3-0.8 [facility] Comment on above: Performed By: #### C BC ####[facility] Dqbdxxltrs[address] [place], [place] [address]Dr. Donna Malone Monocytes/100 WBC (Bld) 8.1 % Normal 1.7-12.0 [facility] Comment on above: Performed By: #### C BC ####[facility] Heyqqkkydg5408[address] [place], [place] [address]Dr. Donna Malone NEUT # 3.5 103/ul Normal 1.4-6.5 [facility] Comment on above: Performed By: #### C BC ####[facility] Xxrldaxnvc69[address] [place], [place] [address]Dr. Donna Malone Neutrophils/100 WBC (Bld) 54.6 % Normal 43.0-75.0 [facility] Comment on above: Performed By: #### C BC ####[facility] Juxvredoxx9[address] [place], [place] [address]Dr. Donna Malone Platelet mean volume (Bld) [Entitic vol] 12.0 fL Normal 9.5-13.5 [facility] Comment on above: Performed By: #### C BC ####[facility] Vnerpkoovd[address] [place] [address]Dr. Donna Malone PLT 152 103/ul Normal 150-450 [facility] Comment on above: Performed By: #### C BC ####[facility] Unyvexdhxd12[address] [place] [address]Dr. Donna Malone RBC 4.01 106/ul Critically low 4.70-6.10 [facility] Comment on above: Performed By: #### C BC ####[facility] Pgeeheobvw5534[address] [place], [place] [address]Dr. Donna Malone WBC 6.4 103/ul Normal 4.0-11.0 [facility] Comment on above: Performed By: #### C BC ####[facility] Jbauexfouy3215[address] [place], [place] [address]Dr. Donna Faisal DEPAKENE/VALPROICon 05-14-20 22 DEPAKENE 17.3 ug/ml Critically low 50.0-100.0 [facility] Comment on above: Performed By: #### V ALP ####[facility] Idmcwmsnjr32[address] [place] [address]Dr. Donna Malone POINT OF CARE GLUCOSEon Glucose [Mass/Vol] 89 mg/dL Normal 74-106 [facility] Comment on above: Performed By: #### P OCGLUC ####[facility] Zvunjgecbv9786 [place] [address]DrElizabeth Donna Faisal PROF CHEM 8 (BAS METB)on Anion gap [Moles/Vol] 13.6 mmol/L Normal [facility] Comment on above: Performed By: #### B MP ####[facility] Tyltkkptgr49[address] [place] [address]Dr. Rubyyvan Malone Calcium [Mass/Vol] 7.8 mg/dL Critically low 8.5-10.1 [facility] Comment on above: Performed By: #### B MP ####[facility] Hyhglgvmad4932 [place] [address]Dr. Donna Malone Chloride [Moles/Vol] 112 mmol/L Critically high 98-107 [facility] Comment on above: Performed By: #### B MP ####[facility] Zfghzcdxfi2149 [place] [address]Dr. Donna Malone CO2 [Moles/Vol] 22.5 mmol/L Normal 21.0-32.0 [facility] Comment on above: Performed By: #### B MP ####[facility] Abwrhdmhwl1604 [place] [address]Dr. Donna Malone Creatinine [Mass/Vol] 1.01 mg/dL Normal 0.70-1.30 [facility] Comment on above: Performed By: #### B MP ####[facility] Fpqqgejtwd586[address] [place], [place] [address]Dr. Donna Malone EGFR-AF SLOVAK >60 Normal >=60 [facility] Comment on above: Performed By: #### B MP ####[facility] Bkkpyrhfrl[address] [place], [place] [address]Dr. Donna Malone EGFR-NON AF SLOVAK >60 Normal >=60 [facility] Comment on above: Performed By: #### B MP ####[facility] Ehtrnwxcfi9733[address] [place], [place] [address]Dr. Donna Malone Glucose [Mass/Vol] 84 mg/dL Normal 74-106 [facility] Comment on above: Performed By: #### B MP ####[facility] Bcpijzwlby1184[address] [place], [place] [address]Dr. Donna Malone Potassium [Moles/Vol] 4.1 mmol/L Normal 3.5-5.1 [facility] Comment on above: Performed By: #### B MP ####[facility] Owlwujwsjd646[address] [place], [place] [address]Dr. Donna Malone Sodium [Moles/Vol] 144 mmol/L Normal 136-145 [facility] Comment on above: Performed By: #### B MP ####[facility] Hkqdcicgmw9683 [place] [address]Dr. Donna Malone Urea nitrogen [Mass/Vol] 21.0 mg/dL Critically high 7.0-18.0 [facility] Comment on above: Performed By: #### B MP ####[facility] Sjicvmurqo3206[address] [place], [place] [address]Dr. Donna Malone Urea nitrogen/Creatinine [Mass ratio] 20.8 mg/mg Normal [facility] Comment on above: Performed By: #### B MP ####[facility] Fawkobvgue1356[address] [place], [place] [address]Dr. Donna Malone TSHon 05-14-2022 TSH 1.086 uIU/mL Normal 0.358-3.74 0 [facility] Comment on above: Performed By: #### T SH ####[facility] Grdlmybvby26[address] [place], [place] [address]Dr. Donna Malone BLOOD GASES BTYon 05-13-2022 02 MODE ROOM AIR Normal [facility] Comment on above: Performed By: #### A BG ####[facility] Cvhbwwtkpx225[address] [place], [place] [address]Dr. Donna Malone ALLENS TEST Positive [facility] Comment on above: Performed By: #### A BG ####[facility] Ltbflhcqnc19[address] [place], [place] [address]Dr. Donna Malone Base excess Calc (Bld) [Moles/Vol] -2.5000 mmol/L Critically low -2.0-2.0 [facility] Comment on above: Performed By: #### A BG ####[facility] Exgocjoccb1908[address] [place], [place] [address]Dr. Donna Malone BIPAP PRESSURE Normal [facility] Comment on above: Performed By: #### A BG ####[facility] Ebbheacpez7649[address] [place], [place] [address]Dr. Donna Malone CPAP Normal [facility] Comment on above: Performed By: #### A BG ####[facility] Cdqjkpelje7438[address] [place], [place] [address]Dr. Donna Malone FIO2 Normal [facility] Comment on above: Performed By: #### A BG ####[facility] Lbvxzuhczn8021 [place] [address]Dr. Donna Malone HCO3 (Bld) [Moles/Vol] 22.4 mmol/L Normal 22.0-26.0 [facility] Comment on above: Performed By: #### A BG ####[facility] Jsjbuuhknf2252 [place] [address]Dr. Donna Malone LPM Normal [facility] Comment on above: Performed By: #### A BG ####[facility] Luvfhldmxu3738[address] [place], [place] [address]Dr. Donna Malone MINUTE VOLUME Normal [facility] Comment on above: Performed By: #### A BG ####[facility] Svtfedvnrb4549[address] [place], [place] [address]Dr. Donna Malone Oxygen (Bld) [Partial pressure] 77.6 mm[Hg] Critically low 80.0-100.0 [facility] Comment on above: Performed By: #### A BG ####[facility] Agncolksio8824[address] [place], [place] [address]Dr. Donna Malone Oxygen saturation in Blood 95.5 % Normal 95.0-100.0 [facility] Comment on above: Performed By: #### A BG ####[facility] Iwwywwedrt0947[address] [place], [place] [address]Dr. Donna Malone PCO2 40.8 mmHg Normal 35.0-45.0 [facility] Comment on above: Performed By: #### A BG ####[facility] Gebyeflkgs[address] [place], [place] [address]Dr. Donna Malone PEEP [facility] Comment on above: Performed By: #### A BG ####[facility] Wvwlwhwroj15[address] [place], [place] [address]Dr. Donna Malone pH (Bld) 7.359 [pH] Normal 7.350-7.45 0 [facility] Comment on above: Performed By: #### A BG ####[facility] Ctrgwcmalt8[address] [place], [place] [address]Dr. Donna Malone PIP [facility] Comment on above: Performed By: #### A BG ####[facility] Tgssgplxzq1378 [place] [address]Dr. Donna Malone PS [facility] Comment on above: Performed By: #### A BG ####[facility] Nfraqzhuqj17[address] [place] [address]Dr. Donna Malone PUNCTURE SITE RR [facility] Comment on above: Performed By: #### A BG ####[facility] Nxckqobwts3045 [place] [address]Dr. Donna Malone RATE [facility] Comment on above: Performed By: #### A BG ####[facility] Cgzmflzdez5[address] [place] [address]Dr. Donna Malone VENT MODE [facility] Comment on above: Performed By: #### A BG ####[facility] Aqutahwgzv[address] [place], [place] [address]Dr. Donna Malone [place] [facility] Comment on above: Performed By: #### A BG ####[facility] Bsujimextp424[address] [place], [place] [address]Dr. Donna Malone BNPon 05-13-2022 Natriuretic peptide B (Bld) [Mass/Vol] 156.0 pg/mL Normal <=900.0 [facility] Comment on above: Performed By: #### C MP, CMADM, BNP ####[facility] Fwxbnvyvms7188 [place] [address]Dr. Donna Malone CARDIAC MJ ADMITon 022 CK [Catalytic activity/Vol] 119 U/L Normal 39-308 [facility] Comment on above: Performed By: #### C MP, CMADM, BNP ####[facility] Hmhfijoddc9402 [place] [address]Dr. Dnona Malone CK.MB [Mass/Vol] 1.27 ng/mL Normal <=3.60 [facility] Comment on above: Performed By: #### C MP, CMADM, BNP ####[facility] Ltcnpjmppc80[address] [place] [address]Dr. Donna Malone HSTROP 7.9 pg/mL Normal 4.0-76.1 [facility] Comment on above: Result Comment: CUT- OFF POINTS HAVE BEEN ESTABLISHED BASED ON THE FOURTH UNIVERSAL DEFINITIONS OF MYOCARDIALINFARCTION. THE UPPER REFERENCE LIMIT (URL) OF TROPONIN, DEFINED THE 99TH PERCENTILE OFcTnI DISTRIBUTION IN A REFERENCE POPULATION, HAS BEEN CONFIRMED THE DECISION THRESHOLDFOR NV DIAGNOSIS. Performed By: #### C MP, CMADM, BNP ####[facility] Oejxprefth50[address] [place] [address]Dr. Donna Malone BINDU 111 ng/mL Critically high 16-96 [facility] Comment on above: Performed By: #### C MP, CMADM, BNP ####[facility] Qagodnwgkl3733 [place] [address]Dr. Donna Malone CBC AUTO DIFFon 05-13-2022 BASO # 0.1 103/ul Normal 0.0-0.1 [facility] Comment on above: Performed By: #### C BC ####[facility] Hmuplcvbha1318[address] [place], [place] [address]Dr. Donna Malone Basophils/100 WBC (Bld) 0.8 % Normal 0.2-2.0 [facility] Comment on above: Performed By: #### C BC ####[facility] Djwcsrnwyx8139[address] [place], [place] [address]Dr. Donna Malone EO # 0.1 103/ul Normal 0.0-0.7 [facility] Comment on above: Performed By: #### C BC ####[facility] Xdmnmapodc6430[address] [place], [place] [address]Dr. Donna Malone Eosinophils/100 WBC (Bld) 1.8 % Normal 0.9-7.0 [facility] Comment on above: Performed By: #### C BC ####[facility] Bqfviveojk829[address] [place], [place] [address]Dr. Donna Malone Erythrocyte distribution width (RBC) [Ratio] 14.7 % Normal 11.0-15.0 [facility] Comment on above: Performed By: #### C BC ####[facility] Nybvxieqkm727[address] [place], [place] [address]Dr. Donna Malone Hematocrit (Bld) [Volume fraction] 38.2 % Critically low 42.0-54.0 [facility] Comment on above: Performed By: #### C BC ####[facility] Ziseumrslo8852 [place] [address]Dr. Donna Malone Hemoglobin (Bld) [Mass/Vol] 12.7 g/dL Critically low 14.0-18.0 [facility] Comment on above: Performed By: #### C BC ####[facility] Xjjtncxiud7090[address] [place], [place] [address]Dr. Donna Malone IG # 0.03 10e3/ul Normal 0.00-0.03 [facility] Comment on above: Performed By: #### C BC ####[facility] Sjctdaqwrm2286[address] [place], [place] [address]Dr. Donna Malone IG % 0.4 % Normal 0.0-0.5 [facility] Comment on above: Performed By: #### C BC ####[facility] Ujvznnsbdk27[address] [place], [place] [address]DrElizabeth Malone LYMPH # 1.6 103/ul Normal 1.2-3.8 [facility] Comment on above: Performed By: #### C BC ####[facility] Nwzwsticop7368[address] [place], [place] [address]DrElizabeth Rubyyvan Malone Lymphocytes/100 WBC (Bld) 22.8 % Normal 20.5-60.0 [facility] Comment on above: Performed By: #### C BC ####[facility] Bijhabfgqs7080[address] [place], [place] [address]DrElizabeth Malone MANUAL DIFF REQ NO Normal [facility] Comment on above: Performed By: #### C BC ####[facility] Qqkkjvwlxk5[address] [place], [place] [address]DrElizabeth Malone MCH (RBC) [Entitic mass] 30.2 pg Normal 25.9-34.0 [facility] Comment on above: Performed By: #### C BC ####[facility] Pjahvbzrnl5316[address] [place], [place] [address]Dr. Donna Malone MCHC (RBC) [Mass/Vol] 33.2 g/dL Normal 29.9-35.2 [facility] Comment on above: Performed By: #### C BC ####[facility] Fumwbmzmiu9[address] [place] [address]DrElizabeth Malone MCV (RBC) [Entitic vol] 91.0 fL Normal 80.0-94.0 [facility] Comment on above: Performed By: #### C BC ####[facility] Bzlllvdpnh70[address] [place], [place] [address]DrElizabeth Malone MONO # 0.7 103/ul Normal 0.3-0.8 [facility] Comment on above: Performed By: #### C BC ####[facility] Dekzefvamv00[address] [place], [place] [address]DrElizabeth Malone Monocytes/100 WBC (Bld) 9.1 % Normal 1.7-12.0 [facility] [facility] Comment on above: Performed By: #### C BC ####[facility] Daxootnvgn[address] [place], [place] [address]DrElizabeth Malone NEUT # 4.7 103/ul Normal 1.4-6.5 [facility] Comment on above: Performed By: #### C BC ####[facility] Ehetrpjqwk5[address] [place], [place] [address]DrElizabeth Malone Neutrophils/100 WBC (Bld) 65.1 % Normal 43.0-75.0 [facility] Comment on above: Performed By: #### C BC ####[facility] Lioyzeykti101[address] [place], [place] [address]DrElizabeth Malone Platelet mean volume (Bld) [Entitic vol] 11.8 fL Normal 9.5-13.5 [facility] Comment on above: Performed By: #### C BC ####[facility] Quizrunzhj9[address] [place], [place] [address]DrElizabeth Malone PLT 179 103/ul Normal 150-450 [facility] Comment on above: Performed By: #### C BC ####[facility] Zsvbhlbkbw69[address] [place], [place] [address]DrElizabeth Malone RBC 4.20 106/ul Critically low 4.70-6.10 [facility] Comment on above: Performed By: #### C BC ####[facility] Kwpmwhrgwv7276 [place], [place] [address]Ag. Donna Faisal WBC 7.2 103/ul Normal 4.0-11.0 [facility] Comment on above: Performed By: #### C BC ####[facility] Sstithmdab3890 [place], [place] [address]Ij. [address] STROKE HEAD WOon 05-13-[address] STROKE HEAD WO Normal [facility] Covid-19 PCR (CVDTB)on SARS-CoV-2 (COVID-19) RNA JOSÉ MIGUEL+probe Ql (Unsp spec) Not detected Normal NOT DETECTED [facility] Comment on above: Result Comment: When [...] for this test is supported by the [place] of Health and Human Service's declaration that [...] be used). Performed By: #### C VDTBH ####[facility] Vjgxsxaszg6709 [place], [place] [address]Qx. Donna Malone DEPAKENE/VALPROICon 05-13-20 22 DEPAKENE 16.9 ug/ml Critically low 50.0-100.0 [facility] Comment on above: Performed By: #### V ALP ####[facility] Kjxqtaogvq2584 [place], [place] [address]Jg. Donna Malone DRUG SCREEN RAPID (URINE)on 05-13-2022 AMP Negative Normal NEGATIVE [facility] Comment on above: Performed By: #### D RUGRPD ####[facility] [address]kmw[address] [place] [address]Dr. Donna Malone BAR Negative Normal NEGATIVE [facility] Comment on above: Performed By: #### D RUGRPD ####[facility] Lmcjvyoksh38[address] [place] [address]Dr. Donna Malone BUP Negative Normal NEGATIVE [facility] Comment on above: Performed By: #### D RUGRPD ####[facility] Zvjfsbfofk[address] [place], [place] [address]Dr. Donna Malone BZO Positive Abnormal NEGATIVE [facility] Comment on above: Performed By: #### D RUGRPD ####[facility] Soktuxoohd9[address] [place], [place] [address]Dr. Donna Malone EVONNE Positive Abnormal NEGATIVE [facility] Comment on above: Performed By: #### D RUGRPD ####[facility] Fcrspnomsg5104[address] [place], [place] [address]Dr. Donna Malone CUT-OFFS SEE BELOW Normal [facility] Comment on above: Result Comment: AMP (Amphetamine): 500ng/mL, BAR (Barbituates): 200 ng/mL, BZO (Benzodiazepines): 150 ng/mL, BUP (Buprenorphine): 10 ng/mL, EVONNE (Cocaine): 150 ng/mL, mAMP (Methamphetamine): 500 ng/mL, MTD (Methadone): 200 ng/mL, OPI (Opiates): 100 ng/mL, OXY (Oxycodone): 100 ng/mL, PCP (Phencyclidine): 25 ng/mL, PPX (Propoxyphene): 300 ng/mL, THC (Cannabinoids): 50 ng/mL, TCA (Trycyclic Antidepressants): 300 ng/mL Performed By: #### D RUGRPD ####[facility] Lvkbfvbmxp96[address] [place] [address]Dr. Donna Malone DRUG CUT HEADER DRUG CLASS TEST SYST EM CUT-OFF CONCENTRATIONS ARE FOLLOWS: Normal [facility] Comment on above: Performed By: #### D RUGRPD ####[facility] [address]qsfqlu[address] [place] [id number]. Donna Malone mAMP Negative Normal NEGATIVE [facility] Comment on above: Performed By: #### D RUGRPD ####[facility] Btsgidyyfj1094 [place] [address]Dr. Donna Malone MTD Negative Normal NEGATIVE [facility] Comment on above: Performed By: #### D RUGRPD ####[facility] Owbuxjvtda25[address] [place] [address]Dr. Donna Malone OPI Positive Abnormal NEGATIVE [facility] Comment on above: Performed By: #### D RUGRPD ####[facility] Lfkyqzxhyh[address] [place], [place] [address]Dr. Donna Malone OXY Negative Normal NEGATIVE [facility] Comment on above: Performed By: #### D RUGRPD ####[facility] Pnzhaftcmr9667[address] [place], [place] [address]Dr. Donna Malone PCP Negative Normal NEGATIVE [facility] Comment on above: Performed By: #### D RUGRPD ####[facility] Icnwrqueys[address] [place], [place] [address]Dr. Donna Malone PPX Negative Normal NEGATIVE [facility] Comment on above: Performed By: #### D RUGRPD ####[facility] Wbjrknxqvd[address] [place], [place] [address]Dr. Donna Malone TCA Positive Abnormal NEGATIVE [facility] Comment on above: Performed By: #### D RUGRPD ####[facility] Bwlik[address] [place], [place] [address]Dr. Donna Faisal THC Negative Normal NEGATIVE [facility] Comment on above: Performed By: #### D RUGRPD ####[facility] Kfvwjpstez25[address] [place], [place] [address]Dr. Rubyyvan Malone ER URINE PROFILEon 2 Bilirubin Ql (U) MODERATE Abnormal NEGATIVE [facility] Comment on above: Performed By: #### E RUR ####[facility] Kvsoqnzbsu30[address] [place], [place] [address]Dr. Donna Malone Clarity (U) SL CLOUDY Abnormal CLEAR [facility] Comment on above: Performed By: #### E RUR ####[facility] Megrfyzgvv284[address] [place], [place] [address]Dr. Donna Malone Color (U) DK. YELLOW Normal YELLOW [facility] Comment on above: Performed By: #### E RUR ####[facility] Ugnxlvqijg34[address] [place], [place] [address]Dr. Donna Malone ERUAHD A micrscopic examina tion will be performed if indicated. Normal [facility] Comment on above: Performed By: #### E RUR ####[facility] Qblsarybqx4338[address] [place], [place] [address]Dr. Donna Malone Glucose Ql (U) 250 mg/dl Abnormal NEGATIVE [facility] Comment on above: Performed By: #### E RUR ####[facility] Bszkcyztpl75[address] [place], [place] [address]Dr. Donna Malone Hemoglobin Ql (U) Negative Normal NEGATIVE [facility] Comment on above: Performed By: #### E RUR ####[facility] Vnlokxrbpm3638[address] [place], [place] [address]Dr. Donna Malone Ketones Ql (U) TRACE Abnormal NEGATIVE [facility] Comment on above: Performed By: #### E RUR ####[facility] Aklbooqppc9674[address] [place], [place] [address]Dr. Donna Malone LEUKOCYTES Negative Normal NEGATIVE [facility] Comment on above: Performed By: #### E RUR ####[facility] Seuckdeyjd[address] [place], [place] [address]Dr. Donna Malone Nitrite Ql (U) Negative Normal NEGATIVE [facility] Comment on above: Performed By: #### E RUR ####[facility] Szhhjmgdom4920[address] [place], [place] [address]Dr. Donna Malone pH (U) 5.5 [pH] Normal 5-9 [facility] Comment on above: Performed By: #### E RUR ####[facility] Mxfzmzzsia338[address] [place], [place] [address]Dr. Donna Malone SPEC GRAVITY >=1.030 Abnormal 1.005-<=1. 025 [facility] Comment on above: Performed By: #### E RUR ####[facility] Ndgvooucqb5436[address] [place], [place] [address]Dr. Donna Malone UA PROTEIN TRACE Normal NEGATIVE/ TRACE [facility] Comment on above: Performed By: #### E RUR ####[facility] Numhwjtvjw2588[address] [place], [place] [address]Dr. Donna Malone UR MICRO IND NOT INDICATED Normal [facility] Comment on above: Performed By: #### E RUR ####[facility] Ryvyigpwde[address] [place], [place] [address]Dr. Donna Malone Urobilinogen Qn (U) 1.0 {Jermain'U}/dL Normal 0.2 - 1. 0 [facility] Comment on above: Performed By: #### E RUR ####[facility] Eomgadevae5025[address] [place], [place] [address]DrElizabeth Malone ETHANOL (BLD ALC)on 05-13-20 ALC NOTE NOTE: 80 mg/dl is th e legal limit for a blood alcohol level Normal [facility] Comment on above: Performed By: #### E TH ####[facility] Lavldkccxd5068[address] [place], [place] [address]Dr. Donna Malone Ethanol [Mass/Vol] mg/dL Normal [facility] Comment on above: Performed By: #### E TH ####[facility] Xunpdxdekl9097[address] [place], [place] [address]DrElizabeth Malone LACTATE/LACTIC ACIDon 2021 Lactate [Moles/Vol] 1.7 mmol/L Normal 0.4-1.9 [facility] Comment on above: Performed By: #### L ACT ####[facility] Foivrjbayg4[address] [place], [place] [address]DrElizabeth Malone POINT OF CARE GLUCOSEon Glucose [Mass/Vol] 99 mg/dL Normal 74-106 [facility] Comment on above: Performed By: #### P OCGLUC ####[facility] Pphbgrmdzh[address] [place], [place] [address]DrElizabeth Malone PROF 14(COMP METB)on 022 Albumin [Mass/Vol] 3.1 g/dL Critically low 3.4-5.0 [facility] Comment on above: Performed By: #### C MP, CMADM, BNP ####[facility] [address]zjabh[address] [place] [address]Dr. Donna Malone Albumin/Globulin [Mass ratio] 1.0 {ratio} Normal [facility] Comment on above: Performed By: #### C MP, CMADM, BNP ####[facility] Ocufgyzzkd3869[address] [place], [place] [address]Dr. Donna Malone ALP [Catalytic activity/Vol] 37 U/L Critically low 46-116 [facility] Comment on above: Performed By: #### C MP, CMADM, BNP ####[facility] Huwlwwxddt25[address] [place], [place] [address]Dr. Donna Malone ALT [Catalytic activity/Vol] 14 U/L Critically low 16-63 [facility] Comment on above: Performed By: #### C MP, CMADM, BNP ####[facility] Rlkukderjl3858[address] [place], [place] [address]Dr. Donna Malone Anion gap [Moles/Vol] 12.3 mmol/L Normal [facility] Comment on above: Performed By: #### C MP, CMADM, BNP ####[facility] Hovvvjxcps0749[address] [place], [place] [address]Dr. Donna Malone AST [Catalytic activity/Vol] 12 U/L Critically low 15-37 [facility] Comment on above: Performed By: #### C MP, CMADM, BNP ####[facility] Zbxonkenca1113[address] [place], [place] [address]Dr. Donna Malone Bilirubin [Mass/Vol] 0.4 mg/dL Normal 0.2-1.0 [facility] Comment on above: Performed By: #### C MP, CMADM, BNP ####[facility] Mipyvvpkdb3678[address] [place], [place] [address]Dr. Donna Malone Calcium [Mass/Vol] 7.8 mg/dL Critically low 8.5-10.1 [facility] Comment on above: Performed By: #### C MP, CMADM, BNP ####[facility] [address]curtvlzyq20[address] [place] [address]Dr. Donna Malone Chloride [Moles/Vol] 108 mmol/L Critically high 98-107 [facility] Comment on above: Performed By: #### C MP, CMADM, BNP ####[facility] Sombjihywf8124 [place] [address]Dr. Donna Malone CO2 [Moles/Vol] 24.8 mmol/L Normal 21.0-32.0 [facility] Comment on above: Performed By: #### C MP, CMADM, BNP ####[facility] Tgmamudove9[address] [place], [place] [address]Dr. Donna Malone Creatinine [Mass/Vol] 1.83 mg/dL Critically high 0.70-1.30 [facility] Comment on above: Performed By: #### C MP, CMADM, BNP ####[facility] Jvhejtaocl[address]24[address] [place], [place] [address]Dr. Donna Malone EGFR-AF SLOVAK 45 mL/min/1.73m2 Critically low >=60 [facility] Comment on above: Performed By: #### C MP, CMADM, BNP ####[facility] Yafjmzhdca15[address] [place], [place] [address]Dr. Donna Malone EGFR-NON AF SLOVAK 37 mL/min/1.73m2 Critically low >=60 [facility] Comment on above: Performed By: #### C MP, CMADM, BNP ####[facility] Bxysrdqwkr036[address] [place], [place] [address]Dr. Donna Malone Globulin (S) [Mass/Vol] 3.2 g/dL Normal [facility] Comment on above: Performed By: #### C MP, CMADM, BNP ####[facility] Qnfpnrdans5806[address] [place], [place] [address]Dr. Donna Malone Glucose [Mass/Vol] 202 mg/dL Critically high 74-106 T [facility] Comment on above: Performed By: #### C MP, CMADM, BNP ####[facility] Ajvwjseltv56[address] [place] [address]Dr. Donna Malone Potassium [Moles/Vol] 4.1 mmol/L Normal 3.5-5.1 [facility] Comment on above: Performed By: #### C MP, CMADM, BNP ####[facility] Vtnaxbfyjy14[address] [place] [address]Dr. Donna Malone Protein [Mass/Vol] 6.3 g/dL Critically low 6.4-8.2 Th e [facility] Comment on above: Performed By: #### C MP, CMADM, BNP ####[facility] S[address]fflwuyc33[address] [place] [address]Dr. Donna aMlone Sodium [Moles/Vol] 141 mmol/L Normal 136-145 [facility] Comment on above: Performed By: #### C MP, CMADM, BNP ####[facility] Gwgsrjwrys58[address] [place] [address]Dr. Donna Malone Urea nitrogen [Mass/Vol] 32.0 mg/dL Critically high 7.0-18.0 [facility] Comment on above: Performed By: #### C MP, CMADM, BNP ####[facility] S[address]jiwokgdu09[address] [place] [address]Dr. Donna Malone Urea nitrogen/Creatinine [Mass ratio] 17.5 mg/mg Normal [facility] Comment on above: Performed By: #### C MP, CMADM, BNP ####[facility] Qeyjgravte[address] [place], [place] [address]Dr. oDnna Malone PROTIMEon 05-13-2022 INR Coag (PPP) [Relative time] 1.04 {INR} Normal [facility] Comment on above: Performed By: #### P T, PTT ####[facility] Dribmdaxrg[address] [place], [place] [address]Dr. Donna Malone INR GUIDELINES SEE BELOW Normal [facility] Comment on above: Result Comment: FLORESITA RED INR: 2.0 - 3.0 CONDITIONS NOT LISTED BELOW 2.5 - 3.5 FOR PROSTHETIC HEART VALVE REPLACEMENT 2.5 - 3.5 RECURRENT THROMBOSIS Performed By: #### P T, PTT ####[facility] Iwejhfmrus6436 [place], [place] [address]Tr. Donna Malone PT Coag (PPP) [Time] 11.2 s Normal 9.0-11.6 [facility] Comment on above: Performed By: #### P T, PTT ####[facility] Mpriqgswsv0052 [place], [place] [address]Qp. Donna Malone PTTon 05-13-2022 aPTT Coag (Bld) [Time] 27.5 s Normal 22.3-36.2 [facility] Comment on above: Performed By: #### P T, PTT ####[facility] Zvaqigprwg9200 [place], [place] [address]Sv. Donna Malone XR CHEST 1 Von 05-13-2022 XR CHEST 1 V Normal [facility] Ambulatory Visit Summaryon 0 10-03-2021 Ambulatory Visit [...] physician if questions or concerns acetaminophen acetaminophen-hydrocodone (Pacifica 5/325 Tab) amlodipine (amLODIPine 5 mg Tab) [...] [facility] [address] [place] [address]- Medications What How Much When Instructions New ciprofloxacin (Cipro 500 mg Tab) 1 Tablets By Mouth Every day Take 1 tablet the day before the procedure and 1 tablet after the procedure Pickup at [facility] Unchanged acetaminophen 650 Milligram Every 4 hours Contact prescribing physician if questions or concerns Unchanged acetaminophen-hydrocodone (Pacifica 5/ 325 Tab) 1 Tablets By Mouth [...] physician if questions or concerns Pharmacy Information [facility]: [address], [place] [id number] [phone] (more content not included)... Normal [facility] Ambulatory Visit Summary TAYLOR MCCLELLAN SR :1955 [...] physician if questions or concerns acetaminophen acetaminophen-hydrocodone (Pacifica 5/325 Tab) amlodipine (amLODIPine 5 mg Tab) [...] [facility] [address], [place] [address]- Medications What How Much When Instructions New ciprofloxacin (Cipro 500 mg Tab) 1 Tablets By Mouth Every day Take 1 tablet the day before the procedure and 1 tablet after the procedure Pickup at [facility] Unchanged acetaminophen 650 Milligram Every 4 hours Contact prescribing physician if questions or concerns Unchanged acetaminophen-hydrocodone (Pacifica 5/ 325 Tab) 1 Tablets By Mouth [...] physician if questions or concerns Pharmacy Information [facility]: [address] [place], [place] [phone] (more content not included)... Normal [facility] Home Recordson 10-03 [facility] Records [id number]:127 Normal [facility] Patient Educationon 10-03-19 Patient Education Urology Benign [...] Follow these instructions at home: ? Take exdq-ipj-fghpuev and prescription medicines only as told by [...] You d (more content not included)... Normal [facility] Urology Office/Clinic Noteon 10-03-2021 Urology Office/Clinic Note Chief Complaint This is a 66 year old male in the [facility] on 09/14/21. This patient has a [...] UroLift 10/30/18. Pt. was seen in the [facility] ER on 09/14/21 due to generalized weakness. [...] recently. Family was in the hospital at [place] where he had severe weakness. A Galindo [...] last seen in 2019. Patient was in [facility] 09/14/21 due to weakness and acute [...] dribbling) moderate, (more content not included)... Normal [facility] Comment on above: Result Comment: Elec tronically Signed By: Sharad Grossman MD, Lisandro Espinal\.br\Date and Time Signed: 10/03/21 12:37 EST\.br\Electronically Co-Signed By: Lisandra Arias\.br\Date and Time Co-Signed: 10/03/21 12:32 EST APTTon 10-13-2019 aPTT Coag (Bld) [Time] 34.9 s Normal 25.0-35.0 Th e [facility] Comment on above: Result Comment: ALL RESULTS [...] THIS PURPOSE. Performed By: #### 5 6101, [address] #### [address] CREATININE BLOODon 0 Creatinine [Mass/Vol] 1.07 mg/dL Normal 0.70-1.30 The [facility] Comment on above: Performed By: #### 2 5656 #### [place] [address], [facility] Creatinine [Mass/Vol] mg/dL Normal >60 The [facility] Comment on above: Performed By: #### 2 5656 #### [place] [address], [facility] CT LUMBAR SPINE W CONTRASTon 10-13-2019 CT LUMBAR SPINE W CONTRAST [facility] Department of Radiology [address] [place] [id number] Patient Name: TAYLOR MCCLELLAN : 1955 Sex: M Age: Race: White Pt. Location: 84 Patient Status: O Ordered Date: 09/11/2019 2:50:00 PM Completed Date: 10/13/2019 11:37 AM Requesting Provider: JASEN HOWARD Attending Provider: JASEN HOWARD Report Copy To: LUI BRYSON Signs & Symptoms: M51.36 Other intervertebral disc degeneration, lumbar region I10 History: Yaritza Need Saturday appointment call [facility] [phone] [facility] auth# [id number] 09/16/19-10/15/19 cpt code 72524 *mla Comments: Exam: CT LUMBAR SPINE W [...] achievable Electronically signed: Fredy Salmeron. Transcribed by: [email or web address], User Resident: Electronically Signed by: FREDY SALMERON @ 10/13/2019 02:08 PM Normal The [facility] LUMBAR MYELOGRAMon 0 LUMBAR MYELOGRAM [facility] Department of Radiology [address] [place] [phone] Patient Name: TAYLOR MCCLELLAN : 1955 [...] risks are acceptable. Consent was obtained. Timeout: [place] protocol timeout verification performed. PROCEDURE: Estimated blood [...] reports Electronically signed: Fredy Salmeron. Transcribed by: [email or web address], User Resident: KRISTINE BALLARD Electronically Signed by: FREDY SALMERON @ 10/13/2019 06:58 PM I personally read this/these film(s) with this resident Normal The [facility] Comment on above: Order Comment: , , = ========= , Ordering Provider - JASEN HOWARD MD , PROTHROMBIN TIMEon 0 INR Coag (PPP) [Relative time] 1.05 {INR} Normal 0.91-1.16 The [facility] Comment on above: Result Comment: ACCC P [...] CHEST 1995;108:231S-246S. Performed By: #### 5 6101, 31712 #### [address] [place] [address], [facility] PT Coag (PPP) [Time] 13.7 s Normal 12.3-14.8 The [facility] Comment on above: Result Comment: ALL RESULTS MUST BE INTERPRETED WITH RESPECT TO BLOOD DRAWING ARTIFACT OR DILUTION ERROR OF ANTICOAGULANT AT THE TIME OF SAMPLING. Performed By: #### 5 6101, [address] #### [facility] [address] [place] [address], [facility] Laboratory Studieson 019 HBV surface Ab Ql (S) Non reactive [facility] Work Phone: Comment on above: Non Reactive: Incons istent with immunity, less than 10 mIU/mL Reactive: Consistent with immunity, greater than 9.9 mIU/mL HBV surface Ag IA Ql Negative [facility] Work Phone: Comment on above: Performed at: [address] [id number] [employer]: Arnold Cabral PhD, Phone: [phone] HCV Ab Signal/Cutoff IA RelACnc 0.1 s/co ratio [facility] [place] [facility] Work Phone: Hepatitis C Antibody Comment See comment [facility] [place] [facility] Work Phone: Comment on above: Non reactive HCV ant ibody screen is consistent with no HCV infection, unless recent infection is suspected or other evidence exists to indicate HCV infection. HIV 1+2 Ab IA Ql Nonreactive [facility] Work Phone: Laboratory Studieson 018 Glucose mass conc Glu2: cleaned meter [facility] [place] [facility] Work Phone: Glucose mass conc 121 mg/dL [facility] Work Phone: Comment on above: Random Glucose Refer ence Range is dependent on time and content of last meal. Glucose of more than 200 mg/dL in a nonstressed, ambulatory subject supports the diagnosis of Diabetes Mellitus. Calcium mass conc 8.7 mg/dL 8.2-10.2 [facility] Work Phone: Chloride molar conc 102 mmol/L 95-114 [facility] Work Phone: CO2 molar conc 27.5 mmol/L 22.0-30.0 [facility] [place] [facility] Work Phone: Creatinine mass conc 1.08 mg/dL 0.64-1.27 [facility] Work Phone: GFR/1.73 sq M predicted among blacks MDRD vol rate/area (S/P/Bld) mL/min/{1.73_m2} [facility] [place] [facility] Work Phone: Comment on above: GFR estimated refere nce range: According to KDOQI guidelines, <60 ml/min/1.73m2 is sufficient to diagnose a patient with chronic kidney disease. GFR/1.73 sq M predicted among non-blacks MDRD vol rate/area (S/P/Bld) mL/min/{1.73_m2} [facility] [place] [facility] Work Phone: Glucose mass conc 86 mg/dL 70-100 [facility] Work Phone: Comment on above: ADA recommended refe rence range Random Glucose Reference Range is dependent on time and content of last meal. Glucose of more than 200 mg/dL in a nonstressed, ambulatory subject supports the diagnosis of Diabetes Mellitus. Pharmacy Creatinine Clearance (Chem [phone] [facility] Work Phone: Potassium molar conc 3.5 mmol/L 3.5-5.1 [facility] Work Phone: Sodium molar conc 139 mmol/L 136-146 [facility] Work Phone: Urea nitrogen mass conc 10 mg/dL 9-23 [facility] Work Phone: Laboratory Studieson 05-2 018 Basophils #/vol (Bld) 0.1 10*3/uL 0.0-0.2 [facility] Work Phone: Basophils/100 WBC (Bld) 1.0 % [facility] Work Phone: Eosinophils #/vol (Bld) 0.2 10*3/uL 0.0-0.45 [facility] Work Phone: Eosinophils/100 WBC (Bld) 2.8 % [facility] Work Phone: Erythrocyte distribution width Ratio (RBC) 13.9 % 12.0-14.8 [facility] Work Phone: Hematocrit Volume Fraction (Bld) 36.3 % Low 38.8-50.0 [facility] Work Phone: Hemoglobin mass conc (Bld) 12.5 g/dL Low 13.0-17.0 [facility] Work Phone: Lymphocytes #/vol (Bld) 1.6 10*3/uL 1.00-4.8 [facility] Work Phone: Lymphocytes/100 WBC (Bld) 23.7 % [facility] Work Phone: MCH Entitic mass (RBC) 28.9 pg 27.5-35.2 [facility] Work Phone: MCHC mass conc (RBC) 34.3 g/dL 32.5-35.6 [facility] Work Phone: MCV Entitic volume (RBC) 84.4 fL 83.5-101 [facility] Work Phone: Monocytes #/vol (Bld) 0.4 10*3/uL 0.0-0.8 [facility] Work Phone: Monocytes/100 WBC (Bld) 6.7 % [facility] Work Phone: Neutrophils #/vol (Bld) 4.4 10*3/uL 1.8-7.7 [facility] Work Phone: Neutrophils/100 WBC (Bld) 65.8 % [facility] Work Phone: Platelet mean volume Entitic volume (Bld) 10.3 fL High 6.6-10.1 [facility] Work Phone: Platelets #/vol (Bld) 199 10*3/uL 150-450 Fi [facility] Work Phone: RBC #/vol (Bld) 4.31 10*6/uL 3.90-5.60 [facility] Work Phone: WBC #/vol (Bld) 6.6 10*3/uL 4.1-10.5 [facility] Work Phone: Laboratory Studieson 018 Appearance Nom (U) Slightly cloudy Abnormal [facility] Work Phone: Bacteria Auto Ql (U) None seen [facility] Work Phone: Bilirubin Ql (U) Negative [facility] Work Phone: Color Nom (U) Yellow [facility] Work Phone: Creatinine mass conc (U) 143.4 mg/dL [facility] Work Phone: Comment on above: No reference range e stablished Epithelial cells Auto #/area (Urine sed) Rare /HPF [facility] Work Phone: Glucose Automated test strip mass conc (U) Normal mg/dL [facility] Work Phone: Hemoglobin Automated test strip Ql (U) 1+ High [facility] Work Phone: Ketones mass conc (U) 1+ High [facility] Work Phone: Leukocyte esterase Automated test strip Ql (U) Negative [facility] Work Phone: Nitrite Automated test strip Ql (U) Negative [facility] Work Phone: pH (U) 5.5 [pH] 5.0-9.0 [facility] Work Phone: pH (U) [pH] 1.001-1.03 0 [facility] Work Phone: Protein mass conc (U) Negative [facility] Work Phone: RBC Auto #/area (Urine sed) 1-2 /HPF [facility] Work Phone: Sodium molar conc (U) 144.0 mmol/L [facility] Work Phone: Comment on above: No reference range e stablished Urate crystals LM.HPF #/area (Urine sed) 3 /[HPF] [facility] Work Phone: Urobilinogen mass conc (U) Normal mg/dL [facility] Work Phone: WBC Auto #/area (Urine sed) None seen /HPF [facility] Work Phone: Albumin mass conc 2.7 g/dL Low 3.2-5.5 [facility] Work Phone: Albumin/Globulin mass ratio 0.8 {ratio} [facility] Work Phone: ALP enzyme act/vol 39 U/L 32-92 [facility] Work Phone: ALT No additional P-5'-P enzyme act/vol 14 U/L 10-60 [facility] Work Phone: AST enzyme act/vol 25 U/L 10-42 [facility] Work Phone: Bilirubin mass conc 0.6 mg/dL 0.3-1.2 [facility] Work Phone: Globulin mass conc (S) 3.6 g/dL Fi [facility] Work Phone: Protein mass conc 6.3 g/dL 6.1-7.9 [facility] Work Phone: Laboratory Studieson 018 T3 free mass conc 3.28 pg/mL 2.50-3.90 [facility] Work Phone: T4 free mass conc 0.95 ng/dL 0.61-1.12 [facility] Work Phone: Amphetamines Ql (U) Negative [facility] Work Phone: Barbiturates Ql (U) Negative [facility] Work Phone: Benzodiazepines Ql (U) Positive High [facility] Work Phone: Cannabinoids Screen Ql (U) Negative [facility] Work Phone: Comment on above: These are unconfirme d results and should not be used for legal purposes. Drug Cut-Off Concentration: AMPH 1000 ng/mL EWA 200 ng/mL JOHN 200 ng/mL COCM 300 ng/mL OP 300 ng/mL PCP 25 ng/mL THC 20 ng/mL Cocaine Ql (U) Negative [facility] Work Phone: Opiates Ql (U) Positive High [facility] Work Phone: Phencyclidine Ql (U) Negative [facility] Work Phone: Ammonia mass conc (Unsp spec) 20 umol/L 11-35 [facility] Work Phone: Bilirubin.direct mass conc 0.2 mg/dL 0.0-0.4 [facility] Work Phone: Bilirubin.indirect mass conc 0.8 mg/dL [facility] Work Phone: Cobalamin (Vitamin B12) mass conc 365 pg/mL 180-914 [facility] Work Phone: Folate mass conc 12.4 ng/mL [facility] Work Phone: Comment on above: Folate reference ran ge: >5.9 ng/ml The WHO technical consultation on folate and vitamin b12 deficiencies has determined that folate concentrations less than 4 ng/ml are considered deficient. Magnesium molar conc (Unsp spec) 1.7 mg/dL 1.6-2.6 [facility] Work Phone: Thyrotropin Qn 0.20 uIU/mL Low 0.45-5.33 [facility] Work Phone: Comment on above: Revised TSH Assay 06 /22/17 This assay is standardized to the World Health Organization International Standard for human TSH. Please note Reference Intervals have changed. Laboratory Studieson 018 Casts LM Nom (Urine sed) N/A [facility] Work Phone: Epithelial cells.renal LM.HPF #/area (Urine sed) Rare /HPF [facility] Work Phone: Hyaline casts Auto #/vol (U) 20-49 /LPF High [facility] Work Phone: Lactate molar conc (U) 0.9 mmol/L [facility] Work Phone: CK enzyme act/vol 107 U/L 22-269 [facility] Work Phone: Phosphate mass conc 5.0 mg/dL High 2.5-4.6 [facility] Work Phone: Laboratory Studieson 017 Glucose mass conc 122 mg/dL [facility] Work Phone: Comment on above: RANDOM GLUCOSE REFER ENCE RANGE IS DEPENDENT ON TIME AND CONTENT OF LAST MEAL.GLUCOSE OF MORE THAN 200MG/DL IN A NONSTRESSED,AMBULATORY SUBJECT SUPPORTS THE DIAGNOSIS OF DIABETES MELLITUS. Laboratory Studieson 017 Basophils #/vol (Bld) 0.1 10*3/uL 0.0-0.2 [facility] Work Phone: Basophils/100 WBC (Bld) 0.9 % [facility] Work Phone: Calcium mass conc 8.6 mg/dL 8.2-10.2 [facility] Work Phone: Chloride molar conc 109 mmol/L 95-114 [facility] Work Phone: CK enzyme act/vol 355 U/L High 22-269 [facility] Work Phone: CO2 molar conc 19.5 mmol/L Low 22.0-30.0 [facility] Work Phone: Creatinine mass conc 0.99 mg/dL 0.64-1.27 [facility] Work Phone: Eosinophils #/vol (Bld) 0.20 10*3/uL 0.0-0.45 [facility] Work Phone: Eosinophils/100 WBC (Bld) 3.3 % [facility] Work Phone: Erythrocyte distribution width Ratio (RBC) 13.8 % 12.0-14.8 [facility] Work Phone: Estimated GFR (Non- > 60 [facility] Work Phone: GFR/1.73 sq M.predicted MDRD (S/P/Bld) [Vol rate/Area] mL/min/{1.73_m2} [facility] Comment on above: GFR estimated refere nce range: According to KDOQI guidelines, <60 ml/min/1.73m2 is sufficient to diagnose a patient with chronic kidney disease. GFR/1.73 sq M.predicted MDRD vol rate/area mL/min/{1.73_m2} [facility] Work Phone: Comment on above: GFR estimated refere nce range: According to KDOQI guidelines, <60 ml/min/1.73m2 is sufficient to diagnose a patient with chronic kidney disease. Glucose mass conc 94 mg/dL 70-100 [facility] Work Phone: Comment on above: ADA RECOMMENDED REFE RENCE RANGE Hematocrit Volume Fraction (Bld) 41.5 % 38.8-50.0 [facility] Work Phone: Hemoglobin mass conc (Bld) 14.1 g/dL 13.0-17.0 [facility] Work Phone: Lymphocytes #/vol (Bld) 2.6 10*3/uL 1.00-4.8 [facility] Work Phone: Lymphocytes/100 WBC (Bld) 40.3 % [facility] Work Phone: MCH Entitic mass (RBC) 30.4 pg 27.5-35.2 [facility] Work Phone: MCHC mass conc (RBC) 34.1 g/dL 32.5-35.6 [facility] Work Phone: MCV Entitic volume (RBC) 89.2 fL 83.5-101 [facility] Work Phone: Monocytes #/vol (Bld) 0.4 10*3/uL 0.0-0.8 [facility] Work Phone: Monocytes/100 WBC (Bld) 6.4 % [facility] Work Phone: Neutrophils #/vol (Bld) 3.1 10*3/uL 1.8-7.7 [facility] Work Phone: Neutrophils (%) (Auto) 49.1 % [facility] Work Phone: Neutrophils/100 WBC (Bld) 49.1 % [facility] Platelet mean volume Entitic volume (Bld) 10.7 fL High 6.6-10.1 [facility] Work Phone: Platelets #/vol (Bld) 160 10*3/uL 150-450 [facility] Work Phone: Potassium molar conc 3.4 mmol/L Low 3.5-5.1 [facility] Work Phone: RBC #/vol (Bld) 4.65 10*6/uL 3.90-5.60 [facility] Work Phone: Sodium molar conc 138 mmol/L 136-146 [facility] Work Phone: Urea nitrogen mass conc 7 mg/dL Low 9-23 [facility] Work Phone: WBC #/vol (Bld) 6.4 10*3/uL 4.1-10.5 [facility] Work Phone: Laboratory Studieson 07-26-2 017 Platelet Aggregation (ADP) 57.8 % 0-100 [facility] Work Phone: Comment on above: NO REFERENCE RANGE I S ESTABLISHED OR APPLICABLE Platelet Inhibition ADP 42.2 % 0-100 [facility] Work Phone: Comment on above: NO REFERENCE RANGE I S ESTABLISHED OR APPLICABLE TEG Max Amplitude (Citrated) 69.9 mm 50-70 [facility] Work Phone: TEG Max Amplitude (Rapid) 29.9 0-90 [facility] Work Phone: Comment on above: TEG MA A HAS NO REFE RENCE RANGE Thrombelastograph (TEG) Net G ADP 53.0 MM 0-90 [facility] Work Phone: Comment on above: TEG MA ADP HAS NO RE FERENCE RANGE Albumin mass conc 3.1 g/dL Low 3.2-5.5 [facility] Work Phone: Albumin/Globulin mass ratio 1.0 {ratio} [facility] Work Phone: ALP enzyme act/vol 44 U/L 32-92 [facility] Work Phone: ALT enzyme act/vol 18 U/L 10-60 [facility] Work Phone: AST enzyme act/vol 27 U/L 10-42 [facility] Work Phone: Bilirubin Ql (U) 0.6 mg/dL 0.3-1.2 [facility] Work Phone: Bilirubin.direct mass conc 0.1 mg/dL 0.0-0.4 [facility] Work Phone: Bilirubin.indirect mass conc (Body fld) 0.5 mg/dL [facility] Work Phone: Cholesterol in HDL mass conc 26 mg/dL Low 29-71 [facility] Work Phone: Comment on above: HDL CHOL ATP-III CLA SSIFICATION Cardiovascular Risk HDL > or equal to 60 mg/dL Low HDL < 40 mg/dL High Cholesterol mass conc 150 mg/dL 140-200 [facility] Work Phone: Comment on above: CHOL less than 200 m g/dL Low risk CHOL 201-239 mg/dL Borderline risk CHOL 240 mg/dL and greater High risk Cholesterol mass conc 30 mg/dL [facility] Work Phone: Cholesterol.total/Chol esterol in HDL mass ratio 5.8 {ratio} [facility] Work Phone: Globulin mass conc (S) 3.2 g/dL [facility] Work Phone: LDL Cholesterol, Calculated 93 mg/dL 0-100 [facility] Work Phone: Comment on above: LDL ATP III CLASSIFI CATION LDL less than 100 mg/dL Optimal LDL 100-129 mg/dL Near or above optimal LDL 130-159 mg/dL Borderline high LDL 160-189 mg/dL High LDL greater than 189 mg/dL Very high Protein mass conc 6.3 g/dL 6.1-7.9 [facility] Work Phone: Thyrotropin Qn 1.12 uIU/mL 0.45-5.33 [facility] Work Phone: Comment on above: Revised TSH Assay This assay is standardized to the World Health Organization International Standard for human TSH. Please note Reference Intervals have changed. Triglyceride mass conc 153 mg/dL High 35-149 [facility] Work Phone: Comment on above: TRIG ATP III CLASSIF ICATION TRIG less than 150 mg/dL Normal TRIG 150-199 mg/dL Borderline high TRIG 200-500 mg/dL High TRIG greater than 500 mg/dL Very high Standard traceable to the Center for Disease Conrtrol and Prevention (CDC) test method. Laboratory Studieson 017 Glucose mass conc Glu2: cleaned meter [facility] Work Phone: Ammonia mass conc (P) 19 umol/L 11-35 [facility] Work Phone: Cobalamin (Vitamin B12) mass conc 202 pg/mL 180-914 [facility] Work Phone: Folate 10.7 ng/mL [facility] Work Phone: Comment on above: FOLATE REFERENCE RAN GE: >5.9 ng/mL The WHO Technical Consultation on folate and vitamin B12 deficiencies has determined that folate concentrations less than 4 ng/mL are considered deficient. Amphetamines Ql (U) Negative [facility] Work Phone: Appearance Nom (U) Clear [facility] Work Phone: Bacteria LM.HPF #/area (Urine sed) None seen [facility] Work Phone: Benzodiazepines Ql (U) Positive High [facility] Work Phone: Bilirubin Ql (U) Negative [facility] Work Phone: Cocaine Ql (U) Negative [facility] Work Phone: Color Nom (U) Yellow [facility] Work Phone: Epithelial cells.squamous LM.HPF #/area (Urine sed) 5-9 /hpf High [facility] Work Phone: Glucose mass conc (U) 250 mg/dL High [facility] Work Phone: Hyaline casts LM Ql (Urine sed) 0-8 /lpf [facility] Work Phone: Ketones Ql (U) Trace High [facility] Work Phone: Leukocyte esterase Test strip Ql (U) Negative [facility] Work Phone: Nitrite Ql (U) Negative [facility] Work Phone: Opiates Ql (U) Negative [facility] Work Phone: pH (U) 5.0 [pH] 5.0-9.0 [facility] Work Phone: Phencyclidine Ql (U) Negative [facility] Work Phone: Protein Ql (U) Negative [facility] Work Phone: RBC #/vol (U) 50-100 /hpf High [facility] Work Phone: Specific gravity Relative Density (U) 1.039 High 1.001-1.03 0 [facility] Work Phone: Urine Barbiturates Screen Negative [facility] Work Phone: Urine Collection Type Type [facility] Work Phone: Comment on above: CATHETERIZED Urine Drug Screen Comment See comment [facility] Work Phone: Comment on above: THESE ARE UNCONFIRME D RESULTS AND SHOULD NOT BE USED FOR LEGAL PURPOSES. DRUG CUT-OFF CONCENTRATION: AMPH 1000 ng/mL EWA 200 ng/mL JOHN 200 ng/mL COCM 300 ng/mL OP 300 ng/mL PCP 25 ng/mL THC 20 ng/mL Urine Marijuana (THC) Screen Negative [facility] Work Phone: Urine Occult Blood 3+ High [facility] Work Phone: Urine Transitional Epithelial Cells 3-4 /hpf High [facility] Work Phone: Urobilinogen Qn (U) Normal mg/dL [facility] Work Phone: WBC #/vol (U) 0-1 /hpf [facility] Work Phone: Bedside Ionized Calcium (Deepti) 1.22 mmol/L 1.12-1.32 [facility] Work Phone: Bedside Total CO2 23 mmol/L 23-29 [facility] Work Phone: Chloride molar conc 110.0 mmol/L High 98-109 [facility] Work Phone: Creatinine mass conc 1.2 mg/dL 0.6-1.3 [facility] Work Phone: Comment on above: ER/ESD PHYSICIAN IS NOTIFIED/SHOWN ALL ISTAT RESULTS. CRITICAL VALUES MAY BE CONFIRMED BY LABORATORY TESTING IF DEEMED NESCESSARY BY ER ATTENDING DOCTOR Glucose mass conc 135 mg/dL High 70-105 [facility] Work Phone: Hematocrit Volume Fraction (Bld) 48.0 % 38.0-51.0 [facility] Work Phone: Hemoglobin mass conc (Bld) 16.3 g/dL 12.0-17.0 [facility] Work Phone: Potassium molar conc 4.7 mmol/L 3.5-4.9 [facility] Work Phone: Sodium molar conc 144 mmol/L 138-146 [facility] Work Phone: Urea nitrogen mass conc 15 mg/dL 8-26 [facility] Work Phone: Amylase enzyme act/vol 39 U/L 28-100 [facility] Work Phone: CK.MB mass conc 9.5 ng/mL High 0.6-6.3 [facility] Work Phone: Creatine Kinase MB Relative Index 1.5 0.00-2.50 [facility] Work Phone: Ethyl Alcohol Level < 5 mg/dL [facility] Work Phone: Glucose mass conc 140 mg/dL High 70-100 [facility] Work Phone: Comment on above: RANDOM GLUCOSE REFER ENCE RANGE IS DEPENDENT ON TIME AND CONTENT OF LAST MEAL.GLUCOSE OF MORE THAN 200MG/DL IN A NONSTRESSED,AMBULATORY SUBJECT SUPPORTS THE DIAGNOSIS OF DIABETES MELLITUS. Lipase enzyme act/vol 22.0 U/L 22-51 [facility] Work Phone: Percent Ethyl Alcohol < 0.005 % [facility] Work Phone: Troponin I.cardiac mass conc ng/mL 0-0.02 [facility] Work Phone: Comment on above: [place] Cut off value > or equal to 0.03 ng/mL in conjunction with clinical conditions of myocardial infarction. (www.escardio.org/guidelines) Glucose mass conc 134 mg/dL [facility] Work Phone: Hemoglobin A1c/Hemoglobin.total mass fraction (Bld) 6.3 % High 4.3-5.6 [facility] Work Phone: Comment on above: Increased risk for d iabetes: 5.7 - 6.4 Diabetes: >6.4 Glycemic control for adults with diabetes: <7.0 Vital Signs Date Time Vital Sign Value Performing Clinician Facility 11-05-2022 14:30-0500 Diastolic blood pressure 72 mm[Hg] Benson Domingo Other [employer] Other 11-05-2022 14:30-0500 SaO2% (BldA) [Mass fraction] 97 % Benson Mcdowellky Other [employer] Other 11-05-2022 14:30-0500 Systolic blood pressure 118 mm[Hg] Benson Domingo Other [employer] Other 10-18-2022 14:00-0500 Body weight 96.[address] Other [employer] Other 10-18-2022 14:00-0500 Diastolic blood pressure 64 mm[Hg] Benson Domingo Other [employer] Other 10-18-2022 14:00-0500 SaO2% (BldA) [Mass fraction] 98 % Benson Mcdowellky Other [employer] Other 10-18-2022 14:00-0500 Systolic blood pressure 120 mm[Hg] Benson Mcdowellky Other [employer] Other 07-20-2022 16:00-0500 Body temperature 97.4 [degF] MD Genesis Reynolds Work Phone: [facility] 07-20-2022 16:00-0500 Diastolic blood pressure 72 mm[Hg] MD Genesis Reynolds Work Phone: [facility] 07-20-2022 16:00-0500 Heart rate 61 /min MD Genesis Reynolds Work Phone: [facility] 07-20-2022 16:00-0500 Respiratory rate 16 /min MD Genesis Reynolds Work Phone: [facility] 07-20-2022 16:00-0500 SaO2% (BldA) [Mass fraction] 98 % MD Genesis Reynolds Work Phone: [facility] 07-20-2022 16:00-0500 Systolic blood pressure 159 mm[Hg] MD Genesis Reynolds Work Phone: [facility] 07-20-2022 06:00-0500 Body weight 95.3 kg MD Genesis Reynolds Work Phone: [facility] 07-18-2022 11:22-0500 Body height 177.8 cm MD Genesis Reynolds Work Phone: [facility] 07-17-2022 22:14-0500 Body height 177.8 cm MD Genesis Reynolds Work Phone: [facility] 07-17-2022 22:14-0500 Body temperature 97.5 [degF] MD Genesis Reynolds Work Phone: [facility] 07-17-2022 22:14-0500 Body weight 95.9 kg MD Genesis Reynolds Work Phone: [facility] 07-17-2022 22:14-0500 Diastolic blood pressure 87 mm[Hg] MD Genesis Reynolds Work Phone: [facility] 07-17-2022 22:14-0500 Heart rate 74 /min MD Genesis Reynolds Work Phone: [facility] 07-17-2022 22:14-0500 Respiratory rate 16 /min MD Genesis Reynolds Work Phone: [facility] 07-17-2022 22:14-0500 SaO2% (BldA) [Mass fraction] 99 % MD Genesis Reynolds Work Phone: [facility] 07-17-2022 22:14-0500 Systolic blood pressure 180 mm[Hg] MD Genesis Reynolds Work Phone: [facility] 02-13-2018 14:12-0400 Body Temperature 98 [degF[facility] 14:12-0400 BP Diastolic 74 mm[Hg] Bro Sanford [facility] 02-13-2018 14:12-0400 BP Systolic 113 mm[Hg] Bro Sanford [facility] 02-13-2018 14:12-0400 Pulse Oximetry 95 % [facility] 02-13-2018 14:12-0400 Respiratory Rate 18 /min [facility] 22:00-0400 Pulse (Heart Rate) 73 /[facility] Highlighted row BMI (Body Mass Index) Bro [facility] NEGATED: Highlighted row BMI (Body Mass Index) Bro Sanford [facility] NEGATED: Highlighted row Height Bro [facility] NEGATED: Highlighted row [facility] En[facility]ters Encounter Date Encounter Type Care Provider Facility Start: 04-26-2023 End: 04-27-2023 ambulatory JUDY HURT [facility] Start: 04-25-2023 End: 04-26-2023 Emergency department patient visit BRO SANF[facility] Start: 04-19-2023 ambulatory Daniloaleksandar Castellonelaziz Abigail acility:[facility] Start: 01-17-2023 End: 01-17-[address] GENESIS REYNOLDS . Facility:[facility] Start: 12-06-2022 End: 12-06-2022 ambulatory Benson Domingo Other [employer] Other Start: 12-06-2022 Telephone encounter Benson Mcdowellky [facility] Assistant Director Start: 11-15-2022 End: 11-17-2022 Evaluation and management of inpatient DR GENESIS REYNOLDS . Facility:[facility] Start: 11-13-2022 End: 11-13-[address] Other [employer] Other Start: 11-13-[address] [facility] Start: 11-05-2022 End: 11-05-[address] Other [employer] Other Start: 11-05-2022 Office outpatient vi sit [address] [facility] Start: 11-01-2022 End: 11-01-2022 ambulatory Genesis Reynolds Facility:[facility] Start: 11-01-2022 End: 11-01-2022 ambulatory MD Genesis Reynolds Work Phone: [facility] Work Phone: Start: 11-01-2022 End: 11-01-2022 Patient encounter procedure MD Genesis Reynolds Work Phone: [facility] [place] Work Phone: Start: 10-26-2022 End: 10-27-[address] GENESIS REYNOLDS . Facility:[facility] Start: 10-25-2022 (PROC) PROCEDURE Benson Mcdowellky Mohit Domo [facility] Start: 10-25-2022 End: 10-26-[address] GENESIS REYNOLDS . [facility] [employer] Other Start: 10-18-2022 End: 10-18-[address] Other [facility] [employer] Other Start: 10-18-2022 Office outpatient ne w [...] of inpatient MD Genesis Reynolds Work Phone: [facility] Start: 07-17-2022 End: 07-20-2022 observation encounter MD Genesis Reynolds Work Phone: [facility] Work Phone: Start: 07-15-2022 End: 07-16-[address] GENESIS REYNOLDS . Facility:[facility] Start: 06-21-2022 End: 06-22-[address] GENESIS REYNOLDS . Facility:[facility] Start: 05-13-2022 End: 05-16-2022 Evaluation and management of inpatient DR GENESIS REYNOLDS . Facility:[facility]1 Start: 05-07-[address] GENESIS REYNOLDS . Facili ty:H1 Start: 12-17-2019 Preoperative state MD Genesis Reynolds Work Phone: [facility] Start: 12-24-2018 End: 12-24-2018 [facility] Start: 02-08-2018 End: 02-13-2018 [facility] Start: 01-12-2018 End: 01-17-2018 [facility] Start: 04-02-2017 End: 04-05-2017 [facility] Start: 06-09-2006 End: 07-09-2006 Discharged Recurring Bro [facility] Start: 04-09-2006 End: 05-09-2006 [facility] Start: 03-09-2006 End: 04-08-2006 Discharged Recurring Bro [facility] Start: 02-22-2006 End: 03-08-2006 [facility] Start: 02-10-2006 End: 02-14-2006 [facility] Start: 05-10-2000 End: 06-08-2000 [facility] Start: 04-09-2000 End: 05-09-2000 Discharged Recurring Bro [facility] Start: 03-09-2000 End: 04-08-2000 Discharged Recurring Bro [facility] Start: 02-08-2000 End: 03-08-2000 Discharged Recurring Bro Nade[facility] Start: 01-08-2000 End: 02-07-2000 Discharged Recurring Bro [facility] Start: 12-09-1999 End: 02-07-2000 Discharged Recurring Bro [facility] Start: 11-08-1999 End: 12-08-1999 [facility] Start: 10-10-1999 End: 11-07-1999 [facility] Start: 09-09-1999 End: 10-09-1999 [facility] Start: 08-09-1999 End: 10-09-1999 [facility] Start: 07-10-1999 End: 08-08-1999 [facility] Start: 06-26-1999 End: 07-09-1999 [facility] Start: 03-29-1998 End: 03-29-1998 [facility] Start: 02-24-1987 End: 02-28-1987 [facility] Start: 12-22-1986 End: 12-23-1986 Evaluation and [facility] Procedures Date Procedure Procedure Detail Performing Clinician Start: 11-01-2022 X-ray of lumbar spin e, four views MD Genesis Reynolds Work Phone: Start: 07-19-2022 Radionuclide myocard ial perfusion stress study MD Genesis Reynolds Work Phone: Start: 07-17-2022 Plain chest X-ray MD Eddy Work Phone: Start: 01-14-2018 Clostridium difficil e assay Bro Srivastavadanielito History of coronary artery bypass grafting Hx of CABG MD Genesis Reynolds Work Phone: SARS-CoV-2, Influenz a & RSV (PCR) MD Genesis Reynolds Work Phone: Plan of Treatment Date Care Activity Detail Author Start: 07-20-2022 [facility] Start: 07-18-2022 Lipid panel [facility] Start: 07-17-2022 Hospital admission [facility] Start: 07-17-2022 Physical therapy procedure [facility] Start: 07-17-2022 Referral to customer support executive [facility] Start: 07-17-2022 Referral to occupati onal therapist [facility] Start: 07-17-2022 [facility] Start: 07-17-2022 [facility] Bacteria identified in Blood by Culture Blood Culture [facility] Blood culture for ba cteria, including anaerobic screen Blood Culture [facility] Patient referral [facility] Work Phone: [facility] Payers Date Payer Category Payer Self-pay 1958 Medicare [id number] 1958 Unknown [id number] 1955 Unknown [id number] 2.16.84 0.1.187513.3.579.2.593 1955 Unknown [id number] 2.16.84 0.1.695453.3.579.2.593 1955 Unknown [id number] 2.16.84 0.1.746828.3.579.2.593 1956 Unknown [id number] 2.16.84 0.1.678383.3.579.2.593 1956 Unknown [id number] 2.16.84 0.1.496193.3.579.2.593 1956 Unknown [id number] 2.16.84 0.1.322702.3.579.2.593 1956 Unknown [id number] 2.16.84 0.1.512903.3.579.2.593 1956 Unknown [id number] 2.16.84 0.1.905008.3.579.2.593 1956 Unknown [id number] 2.16.84 0.1.415478.3.579.2.593 1956 Unknown [id number] 2.16.84 0.1.153125.3.579.2.593 1956 Unknown [id number] 2.16. 840.1.079868.3.579.2.356 1955 Unknown [id number] 2.16. 840.1.931287.3.579.2.356 1955 Unknown [id number] 2.16. 840.1.334747.3.579.2.356 1956 Unknown [id number] 2.16. 840.1.502221.3.579.2.356 1955 Unknown [id number] 2.16. 840.1.446601.3.579.2.356 1955 Unknown [id number] 2.16. 840.1.602981.3.579.2.356 1955 Unknown [id number] 2.16.8 40.1.378920.3.579.2.173 Unknown [id number] Unknown [facility] [id number] Unknown [id number] 2.16.8 40.1.666024.3.579.2.531 Unknown [id number] 2.16.8 40.1.202868.3.579.2.531 Social History Date Type Detail Facility Start: 07-17-2022 End: 07-18-2022 Tobacco smoking status NHIS Smoker (finding) [facility] Start: 1955 Sex Assigned At Male F [facility] Sex Assigned At Sex Assigned At Bir th [facility] [employer] Other Medical Equipment Procedure Code Equipment Code Equipment Origin al Text Equipment Identifier Dates [id number] Start: 12-24-2018 End: 04-11-2019 Glucose test strips Start : 12-24-2018 End: 04-10-2019 Glucose test strips Start : 12-24-2018 End: 04-10-2019 Glucose test strips Start : 12-24-2018 End: 04-10-2019 Goals Date Patient Goal Desired Activity /State Functional Status Date Assessment Result Facility 07-20-2022 Functional status Patient at Baseline [facility] Work Phone: Mental Status Date Assessment Result Facility 07-20-2022 Cognitive function Cognitive Sta tus Patient at Baseline [facility] Work Phone: Clinical Notes 2018 to [...] (ICD-10 - G89.29) Follow up after procedure. [employer] Other 02-09-2023 Evaluation note* Encounter Date Diagnosis [...] cant remember who the surgeon was in [place]. He presents with his today, both the [...] negative findings were considered in medical decision-making. [employer] Other 11-11-2022 Discharge summary Author Sang Bauer [facility] July 20, 2022 6:39pm Note Date/Time July 20, 2022 3:04pm [facility] [address] [place] [address] Discharge Summary Signed Patient: Taylor Mcclellan MR#: [id number] : 1955 Acct:[id number] Age/Sex: 66 / M Adm Date: 2 Loc: Room: [address] [place] [address]: Sang Bauer MD Copies to: [...] affect Discharge Plan Discharge Plan Patient Disposition: Half-Way Facility Activity: No Activity Restriction Diet: Low-Sodium [...] tablet 75 mg PO DAILY Discontinued hydrocodone-acetaminophen [Pacifica] 5-325 mg tablet 1 tab PO BID PRN (Reason: Pain) Qty: 0 0RF Other Ambulatory Orders: DME Home Medical Equipment (Routine) Timeframe: 20220720 Location: Determined by Patient Ordered By: Sang Bauer Follow Up: Lilia Hopper APRN [Nurse Practitioner] - 08/22/22 10:30 am Documented By: Sang Bauer MD 07/20/22 1504 Signed By: <Electronically signed by Sang Bauer MD> 07/20/22 1839 [facility] Work Phone: 1(507) 258-565111-11-2022 Progress note Author Itzel Adams [facility] July 20, 2022 8:06am Note Date/Time July 20, 2022 8:06am [facility] [address] [place] [address] Cardiology Progress Note Signed Patient: Taylor Mcclellan SR MR#: [id number] : 1955 Acct:[id number] Age/Sex: 66 / M Adm Date: 2 Loc: Room: [address] [place] [address] Type: ADM INOo Attending Dr: Sang Bauer [...] it is a single-vessel bypass done in [place] record is not available patient and his cannot remember which hospital he had his surgery at. He does not follow with cardiology Qualifiers: Coronary Disease-Associated Artery/Lesion type: [place] artery [place] vs. transplanted heart: [place] heart Associated angina: without angina Qualified Code(s): I25.10 - Atherosclerotic heart disease of [place] coronary artery without angina pectoris Code(s): I25.10 - Atherosclerotic heart disease of [place] coronary artery without angina pectoris Status: Acute [...] 3. Stress test negative for ischemia or [place]. Patient can be discharged home cardiac chew Documented By: Itzel Adams MD 07/20/22804 Signed By: <Electronically signed by MD Itzel Adams> 07/20/22805 [facility] Work Phone: 1(192) 394-780811-10-2022 Progress note [facility] July 19, 2022 4:57pm Note Date/Time July 19, 2022 4:57pm [facility] [address] [place] [address] Hospitalist Progress Note Signed Patient: Taylor Mcclellan SR MR#: [id number] : 1955 Acct:[id number] Age/Sex: 66 / M Adm Date: 2 Loc: 3T Room: [address] [place] [address] Type: ADM INOo Attending Dr: Sang Bauer [...] Insuln.Pen SUBCUT 07/17/23 21:59 Not Given TID.WM.HS [facility] Protocol Lamotrigine 100 mg 07/18/22 12:00 07/19/22 [...] <Electronically signed by Sang Bauer MD> 07/19/221656 [facility] Work Phone: 1(248) 698-497511-10-2022 Progress note Author Itzel Adams [facility] July 19, 2022 8:35am Note Date/Time July 19, 2022 8:35am [facility] [address] [place] [address] Cardiology Progress Note Signed Patient: Taylor Mcclellan MR#: [id number] : 1955 Acct:[id number] Age/Sex: 66 / M Adm Date: 2 Loc: 3T Room: [address] [place] [address] Type: ADM INOo Attending Dr: Sang Bauer [...] it is a single-vessel bypass done in [place] record is not available patient and his cannot remember which hospital he had his surgery at. He does not follow with cardiology Qualifiers: Coronary Disease-Associated Artery/Lesion type: [place] artery [place] vs. transplanted heart: [place] heart Associated angina: without angina Qualified Code(s): I25.10 - Atherosclerotic heart disease of [place] coronary artery without angina pectoris Code(s): I25.10 - Atherosclerotic heart disease of [place] coronary artery without angina pectoris Status: Acute [...] <Electronically signed by MD Itzel Adams> 07/19/22834 [facility] Work Phone: 1(430) 665-730711-09-2022 Progress note Author Sang Bauer [facility] July 18, 2022 3:24pm Note Date/Time July 18, 2022 3 :24pm [facility] [address] [place] [address] Hospitalist Progress Note Signed Patient: Taylor Mcclellan MR#: [id number] : 1955 Acct:[id number] Age/Sex: 66 / M Adm Date: 2 Loc: Room: [address] [place] [address] Type: ADM INOo Attending Dr: Sang Bauer [...] Insuln.Pen SUBCUT 07/17/23 21:59 Not Given TID.WM.HS [facility] Protocol Lamotrigine 100 mg 07/18/22 12:00 07/18/22 [...] 11:15 Brexpiprazole [Rexulti] PO 07/18/23 11:14 1XD [facility] Ondansetron HCl 4 mg 07/17/22 18:33 Ondansetron [...] 07/18/22 11:47 Tramadol 50 Mg Tablet PO 05/08/23 10:53 50 mg Q8H PRN Administration Pain [...] signed by Sang Bauer MD> 07/18/22 1524 [facility] Work Phone: 1(441) 789-693711-09-2022 History and physical note Author Sang Bauer [facility] July 18, 2022 3:22pm Note Date/Time July 17, 2022 6 :41pm [facility] [address] [place] [address] Hospitalist H&P Signed Patient: Taylor Mcclellan SR MR#: [id number] : 1955 Acct:[id number] Age/Sex: 66 / M Adm Date: 2 Loc: Room: [address] [place] [address] Type: ADM INOo Attending Dr: Sang Bauer [...] at home. Reportedly patient was taken to [facility] couple days ago when he was [...] his live in a mobile home in [place]. Meds Medications and Allergies Allergies chlordiazepoxide [From [...] 07/17/22] hydrocodone 5 mg-acetaminophen 325 mg tablet (Pacifica) 1 tab PO BID PRN Pain #0 [...] % (Auto) 29.5 % (.) 07/17/22 15:44 [place] % (Auto) 5.4 % (.) 07/17/22 15:44 Eos % (Auto) 0.7 % (.) 07/17/22 15:44 Baso % (Auto) 1.0 % (.) 07/17/22 15:44 Neut # (Auto) 4.9 x10E3/uL (1.8-7.7) 07/17/22 15:44 Lymph # (Auto) 2.3 x10E3/uL (1.00-4.8) 07/17/22 15:44 [place] # (Auto) 0.4 x10E3/uL (0.0-0.8) 07/17/22 15:44 [...] prophylaxis CODE STATUS full code Documented By: Sagn Bauer MD 07/17/22 1833 Signed By: <Electronically signed by Sang Bauer MD> 07/18/22 [facility] Work Phone: 1(378) 770-174011-09-2022 Consult note Author Itzel dAams [facility] July 18, 2022 11:46am Note Date/Time July 18, 2022 1 1:43am [facility] [address] [place] [address] Cardiology Consult Note Signed Patient: Taylor Mcclellan SR MR#: [id number] : 1955 Acct:[id number] Age/Sex: 66 / M Adm Date: 2 Loc: 3T Room: [address] [place] [address] Type: ADM INOo Attending Dr: Sang Bauer MD Copies to: MD Genesis Goetz MD Mourhaf A Traboulssi, MD~ Cardiology HPI History of Present Illness Consult Date: 07/18/22 Reason for Consult: Chest pain HPI: Mr. Mcclellan is a 66 year old male with known history of coronary artery disease and prior bypass surgery done in [place]. No records available. Patient report to have [...] his live in a mobile home in [place]. Meds Medications and Allergies Allergies chlordiazepoxide [From [...] 07/17/22] hydrocodone 5 mg-acetaminophen 325 mg tablet (Pacifica) 1 tab PO BID PRN Pain #0 [...] x10E3/uL Lymph # (Auto) 2.3 (1.00-4.8) x10E3/uL [place] # (Auto) 0.4 (0.0-0.8) x10E3/uL Eos # [...] @ 100 mls/hr IV ONCE ONE Rx #:[id number] Oral 0 / 0 50 / 50 [...] it is a single-vessel bypass done in [place] record is not available patient and his cannot remember which hospital he had his surgery at. He does not follow with cardiology Qualifiers: Coronary Disease-Associated Artery/Lesion type: [place] artery [place] vs. transplanted heart: [place] heart Associated angina: without angina Qualified Code(s): I25.10 - Atherosclerotic heart disease of [place] coronary artery without angina pectoris Code(s): I25.10 - Atherosclerotic heart disease of [place] coronary artery without angina pectoris (3) Hx [...] 1140 Signed By: <Electronically signed by MD Iztel Adams> 07/18/22 1146 [facility] Work Phone: 1(728) 565-109211-08-2022 History and physical note Author Sang Bauer [facility] July 18, 2022 3:22pm Note Date/Time July 17, 2022 6 :41pm [facility] [address] [place] [address] Hospitalist H&P Signed Patient: Taylor Mcclellan MR#: [id number] : 1955 Acct:[id number] Age/Sex: 66 / M Adm Date: 2 Loc: Room: [address] [place] [address] Type: ADM INOo Attending Dr: Sang Bauer [...] at home. Reportedly patient was taken to [facility] couple days ago when he was [...] his live in a mobile home in [place]. Meds Medications and Allergies Allergies chlordiazepoxide [From [...] 07/17/22] hydrocodone 5 mg-acetaminophen 325 mg tablet (Pacifica) 1 tab PO BID PRN Pain #0 [...] % (Auto) 29.5 % (.) 07/17/22 15:44 [place] % (Auto) 5.4 % (.) 07/17/22 15:44 Eos % (Auto) 0.7 % (.) 07/17/22 15:44 Baso % (Auto) 1.0 % (.) 07/17/22 15:44 Neut # (Auto) 4.9 x10E3/uL (1.8-7.7) 07/17/22 15:44 Lymph # (Auto) 2.3 x10E3/uL (1.00-4.8) 07/17/22 15:44 [place] # (Auto) 0.4 x10E3/uL (0.0-0.8) 07/17/22 15:44 [...] code Documented By: Sang Bauer MD 07/17/22 1836 Signed By: <Electronically signed by Sang Bauer MD> 07/18/22 1522 [facility] Work Phone: 1(492) [phone] Consult note Author Itzel Adams [facility] July 18, 2022 11:46am Note Date/Time July 18, 2022 1 1:43am [facility] [address] [place] [address] Cardiology Consult Note Signed Patient: Taylor Mcclellan MR#: [id number] : 1955 Acct:[id number] Age/Sex: 66 / M Adm Date: 2 Loc: 3T Room: [address] [place] [address] Type: ADM INOo Attending Dr: Sang Bauer MD Copies to: MD Genesis Goetz MD Mourhaf A Traboulssi,MD~ Cardiology HPI History of Present Illness Consult Date: 07/18/22 Reason for Consult: Chest pain HPI: Mr. Mcclellan is a 66 year old male with known history of coronary artery disease and prior bypass surgery done in [place]. No records available. Patient report to have [...] his live in a mobile home in [place]. Meds Medications and Allergies Allergies chlordiazepoxide [From [...] 07/17/22] hydrocodone 5 mg-acetaminophen 325 mg tablet (Pacifica) 1 tab PO BID PRN Pain #0 [...] x10E3/uL Lymph # (Auto) 2.3 (1.00-4.8) x10E3/uL [place] # (Auto) 0.4 (0.0-0.8) x10E3/uL Eos # [...] @ 100 mls/hr IV ONCE ONE Rx #:[id number] Oral 0 / 0 50 / 50 [...] it is a single-vessel bypass done in [place] record is not available patient and his cannot remember which hospital he had his surgery at. He does not follow with cardiology Qualifiers: Coronary Disease-Associated Artery/Lesion type: [place] artery [place] vs. transplanted heart: [place] heart Associated angina: without angina Qualified Code(s): I25.10 - Atherosclerotic heart disease of [place] coronary artery without angina pectoris Code(s): I25.10 - Atherosclerotic heart disease of [place] coronary artery without angina pectoris (3) Hx [...] signed by MD Itzel Adams> 07/18/22 1146 [facility] Work Phone: Discharge summary Author Sang Bauer [facility] July 20, 2022 6:39pm Note Date/Time July 20, 2022 3:04pm [facility] [address] [place] [address] Discharge Summary Signed Patient: Taylor Mcclellan MR#: [id number] : 1955 Acct:[id number] Age/Sex: 66 / M Adm Date: 2 Loc: Room: [address] [place] [address]: Sang Bauer MD Copies to: [...] affect Discharge Plan Discharge Plan Patient Disposition: Half-Way Facility Activity: No Activity Restriction Diet: Low-Sodium [...] tablet 75 mg PO DAILY Discontinued hydrocodone-acetaminophen [Pacifica] 5-325 mg tablet 1 tab PO BID PRN (Reason: Pain) Qty: 0 0RF Other Ambulatory Orders: [facility] Home Medical Equipment (Routine) Timeframe: 20220720 Location: Determined by Patient Ordered By: Sang Bauer Follow Up: Lilia Hopper APRN [Nurse Practitioner] - 08/22/22 10:30 am Documented By: Sang Bauer MD 07/20/22 3993 Signed By: <Electronically signed by Sang Bauer MD> 07/20/22 4599 [facility] Work Phone: Evaluation note* Diagnosis Onset Date Resolution Status Chest pain acute Coronary artery disease acut e Generalized weakness acute Hx of CABG acute Diabetes mellitus chronic HTN (hypertension) chronic [facility] Work Phone: Evaluation note* Diagnosis Onset Date Resolution Status Bipolar 1 disorder, depressed, severe acute Chest pain acute Coronary artery disease acut e Generalized weakness acute Hx of CABG acute Chronic back pain chronic Diabetes mellitus chronic HTN (hypertension) chronic [facility] Work Phone: Evaluation noteNo assessment information available [facility] Work Phone: [facility]No [facility] [employer] Other History general Narrative - Reported* Type Description Date Medical History CABG Medical History BPH Medical History HTN Medical History Diabetes Medical History HLD Medical History lumbosacral spondylosis Medical History lumbar neuritis Medical History disorder of sacrum Surgical History previous back surgery Surgical History heart valve replacement Surgical History CABG Hospitalization History see above [employer] Other Hospital Discharge instructions Additional Instructions SNF TO MANAGE: PT/OT to eval and treat Monitor VS per protocol--HTN Monitor FSBS Maintain high risk fall precautions Care [facility] be [facility] Work Phone: Progress note Author Sang Bauer [facility] July 18, 2022 3:24pm Note Date/Time July 18, 2022 3 :24pm [facility] [address] [place] [address] Hospitalist Progress Note Signed Patient: Taylor Mcclellan MR#: [id number] : 1955 Acct:[id number] Age/Sex: 66 / M Adm Date: 2 Loc: Room: [address] [place] [address] Type: ADM INOo Attending Dr: Sang Bauer [...] 25 Mg Tablet PO 07/18/23 13:59 TID [facility] Insulin Aspart 0 units 07/17/22 22:00 07/18/22 11:48 Insulin Aspart 300 Units/3 Ml Insuln.Pen SUBCUT 07/17/23 21:59 Not Given TID.WM.HS [facility] Protocol Lamotrigine 100 mg 07/18/22 12:00 07/18/22 [...] 11:15 Brexpiprazole [Rexulti] PO 07/18/23 11:14 1XD [facility] Ondansetron HCl 4 mg 07/17/22 18:33 Ondansetron [...] signed by Sang Bauer MD> 07/18/22 1524 [facility] Work Phone: Progress note Author Itzel Adams [facility] July 19, 2022 8:35am Note Date/Time July 19, 2022 8:35am [facility] [address] [place] [address] Cardiology Progress Note Signed Patient: Taylor Mcclellan MR#: [id number] : 1955 Acct:[id number] Age/Sex: 66 / M Adm Date: 2 Loc: Room: [address] [place] [address] Type: ADM INOo Attending Dr: Sang Bauer [...] it is a single-vessel bypass done in [place] record is not available patient and his cannot remember which hospital he had his surgery at. He does not follow with cardiology Qualifiers: Coronary Disease-Associated Artery/Lesion type: [place] artery [place] vs. transplanted heart: [place] heart Associated angina: without angina Qualified Code(s): I25.10 - Atherosclerotic heart disease of [place] coronary artery without angina pectoris Code(s): I25.10 - Atherosclerotic heart disease of [place] coronary artery without angina pectoris Status: Acute [...] <Electronically signed by MD Itzel Adams> 07/19/22834 [facility] Work Phone: Progress note Author Sang Bauer [facility] July 19, 2022 4:57pm Note Date/Time July 19, 2022 4:57pm [facility] [address] [place] [address] Hospitalist Progress Note Signed Patient: Taylor Mcclellan SR MR#: [id number] : 1955 Acct:[id number] Age/Sex: 66 / M Adm Date: 2 Loc: Room: [address] [place] [address] Type: ADM INOo Attending Dr: Sang Bauer [...] code Documented By: Sang Bauer MD 07/19/22 0949 Signed By: <Electronically signed by Sang Bauer MD> 07/19/22 0749 [facility] Work Phone: Progress note Author Itzel Adams [facility] July 20, 2022 8:06am Note Date/Time July 20, 2022 8:06am [facility] [facility] [address] [place], [place] [id number] Cardiology Progress Note Signed Patient: Taylor Mcclellan SR MR#: [id number] : 1955 Acct:[id number] Age/Sex: 66 / M Adm Date: 2 Loc: Room: [address] [place] [address] Type: ADM INOo Attending Dr: Sang Bauer [...] it is a single-vessel bypass done in [place] record is not available patient and his cannot remember which hospital he had his surgery at. He does not follow with cardiology Qualifiers: Coronary Disease-Associated Artery/Lesion type: [place] artery [place] vs. transplanted heart: [place] heart Associated angina: without angina Qualified Code(s): I25.10 - Atherosclerotic heart disease of [place] coronary artery without angina pectoris Code(s): I25.10 - Atherosclerotic heart disease of [place] coronary artery without angina pectoris Status: Acute [...] 3. Stress test negative for ischemia or NV. Patient can be discharged home cardiac chew Documented By: Itzel Adams MD 07/20/22 08 Signed By: <Electronically signed by MD Itzel Adams> 07/20/22 08 [facility] Work Phone: Summary Purpose Family History [...] section and content) DATE CREATED AUTHOR 10/15/2019 [facility] DATE CREATED AUTHOR AUTHOR'S ORGANIZ ATION [facility] DATE CREATED AUTHOR AUTHOR'S ORGANIZ ATION 01/21/2023 [facility] DATE CREATED AUTHOR AUTHOR'S ORGANIZ ATION 01/23/2023 [facility] DATE CREATED AUTHOR AUTHOR'S ORGANIZ ATION 04/30/2023 [facility] DATE CREATED AUTHOR AUTHOR'S ORGANIZ ATION 08/18/2023 [facility] Care Teams (unrecognized sec tion and content) [...] Ramirez MD Other Provider Active Pily Winslow [facility]- Other Provider Active Adelaide Leonardo MD [...] Reynolds MD Primary Care Provider Active Benson Lane MD Attending Provider Active Goals (unrecognized section [...] BE BASED ON THE PRIMARY CLINICAL RECORDS. [employer] [facility]. provides no warranty or guarantee of the accuracy or completeness of information in this document.
== END 2023-09-24 10:22 | disposition home or self-care (01) ==
LOC: MRI 10:23
PROVIDERS: PCP Family Medicine; Visit Provider Family Medicine
DX: M54.16 Radiculopathy, lumbar region (principal); M51.26 Other intervertebral disc displacement, lumbar region
CPT/HCPCS: 72148

== ENCOUNTER 2023-11-05 13:55 | Emergency (ER) | payer MEDICARE, BC, SELFPAY ==
[2023-11-05] VITALS (40 sets, daily range): BP systolic 151–153; BP diastolic 99–100; PULSE 80–113; RESP 17–28; TEMP 36.9; O2SAT 92–98; BMI 30.7
--- NOTE | 2023-11-05 14:05 | ECG_ITS ---
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
--- NOTE | 2023-11-05 14:13 | ED.GENADUL1 ---
HPI - General Adult General Chief complaint: Psychiatric Symptoms Stated complaint: BACK PAIN, MENTAL HEALTH EVALUATION Time Seen by Provider: 11/05/23 14:05 Source: patient and family Mode of arrival: Wheelchair Limitations: other Limitations comment: Emotional History of Present Illness HPI narrative: Patient is a 68-year-old male who is presenting to the ER from a counseling appointment stating that he wants to kill himself secondary to chronic pain that he cannot live with anymore. This past summer in February and March patient was admitted to [facility] psychiatric facility for 6 weeks helping with rehabilitation, Geripsychiatric concerns, mental social aspects. Patient has other psychiatric diagnoses besides chronic lumbar pain. Patient has had a fusion in the past of his lumbar spine by Dr. Horne at [facility]. Patient was sent to the ER for evaluation and patient will need to be placed in mental health/[facility] facility. Patient is very verbal stating that he wants to and he cannot live with his chronic pain anymore. Patient has recently been prescribed pain medication from Dr. Jiang. Patient is overdosing on his pain medication at home regularly. He is taking 1 to 2-3 additional tablets at a time, not caring if he overdoses and dies or not. Patient is taking extra medication because he knows it helps with his pain. Patient's son is at bedside, excellent historian. Patient lives with his . Patient's son goes over to the house every other day to help fill his medications. Patient is taking additional other medications intermittently when they are not scheduled because he is trying to find a Vicodin tablet that he can take. Patient did take extra Vicodin in the past to try to kill himself. Patient has not overdosed today that the son is aware of. Patient is very tearful, stating that he wants to secondary to his chronic pain. Patient has not attempted anything today to hurt or kill himself. Patient does have an appointment this Saturday with the orthopedic spine surgeon Dr. Horne. Patient has had recent x-rays and MRIs done recently in preparation to follow-up with Dr. Horne again. Patient does have some new narrowing between his lumbar vertebrae and there may be additional surgery that needs to be done or not. Patient currently has no headache, chest pain or shortness of breath. No new abdominal pain, nausea vomiting, no other acute complaints Patient son is at bedside, patient's son states that he absolutely needs to be placed in geriatric mental health facility again. Last summer when he was placed in geriatric psychiatric facility For 6 weeks, he is acting very similar today. All systems are negative except as noted/marked. All systems reviewed and otherwise negative. Nurses note and vital signs reviewed and patient is not hypoxic. General: The patient appears mild distress secondary to crying, stating he wants to secondary to his pain during HPI and physical exam. Son is at bedside as a witness to this as well.. Patient is resting uncomfortably on cart. Patient is not toxic, lethargic, or listless Skin: Warm, dry, no pallor noted. There is no rash noted. No petechiae, purpura. Head: Normocephalic, atraumatic Eye: Normal conjunctiva, no drainage, EOMI. PERRL Ears, Nose, Mouth, and Throat: oral mucosa is moist. Poor dentition. Nares patent. Mouth without vesicles. Cardiovascular: Regular Rate and Rhythm, no murmur, gallop, rub Respiratory: Patient is in no distress, no accessory muscle use, lungs are clear to auscultation, no wheezing, rales or rhonchi Back: Chronic moderate tenderness palpation to paralumbar soft tissue, midline surgical scar noted, no signs of epidural abscess, hematoma, or any other acute signs of infection or acute abnormalities. Non-tender, no CVA tenderness bilaterally to percussion. No CT LS midline pain. patient denies any symptoms of saddle anesthesia or cauda equina. Patient does have chronic pain rating down the right lateral aspect of his right leg which patient has been diagnosed with chronic sciatica previously. GI: Obese, no tenderness to palpation, no masses appreciated. No rebound, guarding, or rigidity noted. No distention Musculoskeletal: Patient has full range of motion of all of the extremities, no motor, sensory, or focal neurological deficits besides his ongoing chronic pain to his lumbar area. Neurological: A&O x4, normal speech Psychiatric: Cooperative, patient is very audible and voicing that he wants to hurt or kill himself, he has no plan. Not homicidal. Related Data Home Medications Medication Instructions Recorded Confirmed amitriptyline 50 mg tablet 100 mg PO .qhs 03/14/23 04/19/23 aspirin 81 mg capsule 81 mg PO DAILY 03/14/23 04/19/23 atorvastatin 40 mg tablet 40 mg PO DAILY 03/14/23 04/19/23 brexpiprazole 3 mg tablet (Rexulti) 3 mg PO DAILY 03/14/23 04/19/23 bupropion HCl 150 mg 24 hr tablet, 150 mg PO QDAY 03/14/23 04/19/23 extended release buspirone 10 mg tablet 10 mg PO BID 03/14/23 04/19/23 carvedilol 12.5 mg tablet (Coreg) 12.5 mg PO BID 03/14/23 04/19/23 clopidogrel 75 mg tablet 75 mg PO QDAY 03/14/23 04/19/23 hydralazine 25 mg tablet 25 mg PO Q8H 03/14/23 04/19/23 lamotrigine 100 mg tablet 200 mg PO QDAY 03/14/23 11/05/23 bupropion HCl 300 mg 24 hr tablet, 300 mg PO DAILY 04/19/23 04/19/23 extended release gabapentin 300 mg capsule mg 04/19/23 hydrocodone 10 mg-acetaminophen 1 tab PO Q6H PRN pain 11/05/23 11/05/23 325 mg tablet lamotrigine 200 mg tablet 200 mg PO DAILY 11/05/23 11/05/23 mirtazapine 45 mg tablet 45 mg PO DAILY 11/05/23 11/05/23 olanzapine 2.5 mg tablet 2.5 mg PO BID 11/05/23 11/05/23 tizanidine 4 mg tablet 8 mg PO BEDTIME 11/05/23 11/05/23 Previous Rx's Medication Instructions Recorded celecoxib 200 mg capsule 200 mg PO DAILY #30 caps 03/15/23 Allergies Allergy/AdvReac Type Severity Reaction Status Date / Time No Known Drug Allergies Allergy Verified 04/19/23 13:59 [facility] Medical History (Updated 11/05/23 @ 20:57 by Dwaine Parikh MD) CAD (coronary artery disease) ?I25.10 - Atherosclerotic heart disease of [place] coronary artery without angina pectoris (ICD-10) Back pain ?M54.9 - Dorsalgia, unspecified (ICD-10) 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 - Fusion of spine, lumbar region (ICD-10) High cholesterol ?E78.00 - Pure hypercholesterolemia, unspecified (ICD-10) Hypertension ?I10 - Essential (primary) hypertension (ICD-10) IDDM (insulin dependent diabetes mellitus) Restless leg syndrome ?G25.81 - Restless legs syndrome (ICD-10) Suicidal ideation ?R45.851 - Suicidal ideations (ICD-10) Sleep apnea ?G47.30 - Sleep apnea, unspecified (ICD-10) Anxiety ?F41.9 - Anxiety disorder, unspecified (ICD-10) Metabolic encephalopathy ?G93.41 - Metabolic encephalopathy (ICD-10) Depression ?F32.A - Depression, unspecified (ICD-10) Acute renal failure ?N17.9 - Acute kidney failure, unspecified (ICD-10) Altered mental status ?R41.82 - Altered mental status, unspecified (ICD-10) Surgical History (Updated 03/14/23 @ 23:37 by Christiana Hou) S/P CABG (coronary artery bypass graft) ?Z95.1 - Presence of aortocoronary bypass graft (ICD-10) History of heart artery stent ?Z95.5 - Presence of coronary angioplasty implant and graft (ICD-10) Family History (Updated 03/14/23 @ 23:00 by Taniya Mercado) Mother Family history of myocardial infarction Social History (Updated 03/14/23 @ 23:05 by Taniya Mercado) Within the past year, how often did you have a drink containing alcohol: never Score interpretation: A score less than 4 is consistent with normal alcohol consumption. 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 Known occupational exposures/hazards: No Highest level of school completed/degree received: some college, no degree Do you want help with school or training: No Are you now , , , , never or living with a partner: In a typical week, how many times do you talk on the telephone with family, friends, or neighbors: never How often do you get together with friends or relatives: never How often do you attend taoism or christian services: never Do you belong to any clubs or organizations such as taoism groups unions, fraternal or athletic groups, or school groups: no Total score: 1 Score interpretation: A score of less than or equal to 1 indicates the most socially isolated. Little interest or pleasure in doing things: nearly every day Feeling down, depressed, or hopeless: several days Feel stressed/tense/nervous/anxious/difficulty sleeping: very much Life stressors: recent of family or friend Life stressor details: mother and step father a year ago Due to disability, difficulty making decisions: No Do you think of yourself as: straight/heterosexual Gender Identity: male Exam Constitutional Vital Signs, click to edit/add: Last Vital Signs Temp 98.5 F 11/05/23 14:07 Pulse 93 H 11/05/23 19:15 Resp 23 11/05/23 19:15 BP 153/99 H 11/05/23 14:13 Pulse Ox 95 11/05/23 15:30 O2 Del Method Room Air 11/05/23 14:41 Course Vital Signs Vital signs: Vital Signs Temperature 98.5 F 11/05/23 14:07 Pulse Rate 111 H 11/05/23 14:07 Respiratory Rate 20 11/05/23 14:07 Blood Pressure 151/100 H 11/05/23 14:07 Pulse Oximetry 98 11/05/23 14:07 Oxygen Delivery Method Room Air 11/05/23 14:07 Temperature 98.5 F 11/05/23 14:07 Pulse Rate 93 H 11/05/23 19:15 Respiratory Rate 23 11/05/23 19:15 Blood Pressure 153/99 H 11/05/23 14:13 Pulse Oximetry 95 11/05/23 15:30 Oxygen Delivery Method Room Air 11/05/23 14:41 Medical Decision Making MDM Narrative Medical decision making narrative: Patient was able to eat lunch and drinking with no difficulty. Patient last took his pain pill at noon. Once 4:00 PM, patient is asking for his pain pill that he takes every 4 hours that is prescribed from Dr. Jiang. 1600 patient has spoken to the counselor from [facility]. Patient's son will be talking to the counselor as well from [facility]. Patient's son is recommending that patient absolutely needs to be admitted to the [facility] psychiatric facility, patient does have an outpatient appointment set up on Saturday with Dr. Saint Howard in [place] who is orthopedic surgeon who is perform surgery on this patient several years ago in [place]. Patient does not try to hurt or kill himself today, patient is crying, states he does not want to go back home, does not want to live anymore secondary to chronic pain. 1720 patient is having pain again, patient will be given a shot of Valium and Dilaudid to help take the edge off pain. [facility] has spoken to the patient and son, we are currently waiting for placement. 193 Patient has been transitioned to Dr. Doran for final placement, admission and transfer of the patient. [place] slip has been filled out by myself. Critical care time 35 minutes exclusive from separate billable procedures that were performed. The following was considered in the determination of critical care but not limited to the level of medical decision making, intensive cardiac and/or respiratory monitoring, frequent vital sign monitoring, evaluation of laboratory studies, evaluation of radiographic studies, oxygen monitoring, and constant monitoring and speaking to family at bedside Lab Data Lab results reviewed: Yes I reviewed the patient's lab results Labs: Lab Results 11/05/23 11/05/23 11/05/23 Range/Units 14:23 16:26 16:58 WBC 11.5 H (4.0-11.0) 10^3/uL RBC 5.29 (4.70-6.10) 10^6/uL Hgb 16.1 (14.0-18.0) g/dL Hct 48.2 (42.0-54.0) % MCV 91.1 (80.0-94.0) fL MCH 30.4 (25.9-34.0) pg MCHC 33.4 (29.9-35.2) g/dL RDW 14.9 (11.0-15.0) % Plt Count 239 (150-450) 10^3/uL MPV 11.4 (9.5-13.5) fL Neut % (Auto) 73.1 (43.0-75.0) % Lymph % (Auto) 19.2 L (20.5-60.0) % Giles % (Auto) 6.6 (1.7-12.0) % Eos % (Auto) 0.2 L (0.9-7.0) % Baso % (Auto) 0.6 (0.2-2.0) % Neut # (Auto) 8.4 H (1.4-6.5) 10^3/uL Lymph # (Auto) 2.2 (1.2-3.8) 10^3/uL Giles # (Auto) 0.8 (0.3-0.8) 10^3/uL Eos # (Auto) 0.0 (0.0-0.7) 10^3/uL Baso # (Auto) 0.1 (0.0-0.1) 10^3/uL Abs Immat Gran (auto) 0.03 (0.00-0.03) 10^3/uL Imm/Tot Granulo (auto) 0.3 (0.0-0.5) % Sodium 140 (136-145) mmol/L Potassium 4.2 (3.5-5.1) mmol/L Chloride 103 (98-107) mmol/L Carbon Dioxide 28.0 (21.0-32.0) mmol/L Anion Gap 13.2 BUN 7.0 (7.0-18.0) mg/dL Creatinine 1.32 H (0.70-1.30) mg/dL Est GFR ( Amer) >60 (>=60) Est GFR (Non-Af Amer) 54 L (>=60) BUN/Creatinine Ratio 5.3 Glucose 142 H (74-106) mg/dL Calcium 9.2 (8.5-10.1) mg/dL Total Bilirubin 0.3 (0.2-1.0) mg/dL AST 13 L (15-37) U/L ALT 15 L (16-63) U/L Alkaline Phosphatase 62 (46-116) U/L Total Protein 7.9 (6.4-8.2) g/dL Albumin 3.5 (3.4-5.0) g/dL Globulin 4.4 g/dL Albumin/Globulin Ratio 0.8 Salicylates 9.8 (<=19.9) mg/dL Urine Opiates Screen Positive A (NEGATIVE) Ur Buprenorphine Scrn Negative (NEGATIVE) Ur Oxycodone Screen Negative (NEGATIVE) Urine Methadone Screen Negative (NEGATIVE) Acetaminophen <2.0 L (10.0-30.0) ug/mL Ur Barbiturates Screen Negative (NEGATIVE) U Tricyclic Antidepress Negative (NEGATIVE) Ur Phencyclidine Scrn Negative (NEGATIVE) Ur Amphetamines Screen Negative (NEGATIVE) U Methamphetamines Scrn Negative (NEGATIVE) U Benzodiazepines Scrn Negative (NEGATIVE) Urine Cocaine Screen Negative (NEGATIVE) U Cannabinoids Screen Negative (NEGATIVE) Ethanol Quant <3 mg/dL SARS-CoV-2 Ag (CV2AG) Negative (NEGATIVE) ECG Data Attestation: I personally reviewed and interpreted this ECG as follows: (EKG interpretation. Sinus tachycardia at 110. Left axis deviation. Right bundle branch block noted, EKG also read left anterior fascicular block. Compared to EKG on April 19, 2023, patient has similar changes on today's EKG.) Discharge Plan Discharge Patient Disposition: Still a Patient
[2023-11-05 14:29] LABS: Basophils Absolute Auto 0.1 10^3/uL (0.0-0.1); Basophils Percent Auto 0.6 % (0.2-2.0); Eosinophils Percent Auto 0.2 % (0.9-7.0); Hematocrit 48.2 % (42.0-54.0); Hemoglobin 16.1 g/dL (14.0-18.0); Immature Granulocytes Abs Auto 0.03 10^3/uL (0.00-0.03); Immature Granulocytes Pct Auto 0.3 % (0.0-0.5); Lymphocytes Absolute Auto 2.2 10^3/uL (1.2-3.8); Lymphocytes Percent Auto 19.2 % (20.5-60.0); Mean Corpuscular HGB Conc 33.4 g/dL (29.9-35.2); Mean Corpuscular Hemoglobin 30.4 pg (25.9-34.0); Mean Corpuscular Volume 91.1 fL (80.0-94.0); Mean Platelet Volume 11.4 fL (9.5-13.5); Monocytes Absolute Auto 0.8 10^3/uL (0.3-0.8); Monocytes Percent Auto 6.6 % (1.7-12.0); Neutrophils Absolute Auto 8.4 10^3/uL (1.4-6.5); Neutrophils Percent Auto 73.1 % (43.0-75.0); Platelet Count 239 10^3/uL (150-450); Red Blood Count 5.29 10^6/uL (4.70-6.10); Red Cell Distribution Width 14.9 % (11.0-15.0); White Blood Count 11.5 10^3/uL (4.0-11.0)
[2023-11-05 14:48] LABS: Salicylate 9.8 mg/dL (<=19.9)
[2023-11-05 14:51] LABS: Acetaminophen <2.0 ug/mL (10.0-30.0); Alanine Aminotransferase 15 U/L (16-63); Albumin Globulin Ratio 0.8; Albumin Level 3.5 g/dL (3.4-5.0); Alkaline Phosphatase 62 U/L (46-116); Anion Gap 13.2; Aspartate Amino Transferase 13 U/L (15-37); BUN Creatinine Ratio 5.3; Bilirubin Total 0.3 mg/dL (0.2-1.0); Calcium 9.2 mg/dL (8.5-10.1); Chloride 103 mmol/L (98-107); Estimated GFR (African America >60 (>=60); Estimated GFR (Non-African Ame 54 (>=60); Globulin 4.4 g/dL; Glucose 142 mg/dL (74-106); Potassium 4.2 mmol/L (3.5-5.1); Sodium 140 mmol/L (136-145); Total Protein 7.9 g/dL (6.4-8.2)
[2023-11-05 15:05] LABS: Ethanol <3 mg/dL
[2023-11-05] MEDS: HYDROCODONE/ACET 10-325 MG TABLET 1 TAB PO ×2 (16:08→21:41)
[2023-11-05 16:52] LABS: Amphetamine Screen Urine NEGATIVE (NEGATIVE); Barbiturates Screen Urine NEGATIVE (NEGATIVE); Benzodiazepines Screen Urine NEGATIVE (NEGATIVE); Buprenorphine Screen Urine NEGATIVE (NEGATIVE); Cannabinoid Screen Urine NEGATIVE (NEGATIVE); Cocaine Screen Urine NEGATIVE (NEGATIVE); Methadone Screen Urine NEGATIVE (NEGATIVE); Methamphetamines Screen Urine NEGATIVE (NEGATIVE); Opiate Screen Urine POSITIVE (NEGATIVE); Oxycodone Screen Urine NEGATIVE (NEGATIVE); Phencyclidine Screen Urine NEGATIVE (NEGATIVE); Tricyclic Antidepressant Urine NEGATIVE (NEGATIVE)
[2023-11-05 17:15] LABS: SARS-CoV-2 Ag NEGATIVE (NEGATIVE)
[2023-11-05] MEDS: DIAZEPAM 10 MG/2 ML SYRINGE 5 MG IM (17:33)
[2023-11-05] MEDS: HYDROMORPHONE HCL 0.5 MG/0.5 ML SYRINGE IM (17:33)
--- NOTE | 2023-11-05 21:28 | ED.GENADUL1 ---
HPI - General Adult General Chief complaint: Psychiatric Symptoms Stated complaint: BACK PAIN, MENTAL HEALTH EVALUATION Time Seen by Provider: 11/05/23 14:05 Source: patient and family Mode of arrival: Wheelchair Limitations: other Limitations comment: Emotional History of Present Illness HPI narrative: patient transferred from home with history of acute confusion today. Fever and chills at home. Squad state at home she would only answer them if you stared at her and look at her directly. She arrives awake and communicating normally. Complains of chills. Denies abdominal pain or chest pain Related Data Home Medications Medication Instructions Recorded Confirmed amitriptyline 50 mg tablet 100 mg PO .qhs 03/14/23 04/19/23 aspirin 81 mg capsule 81 mg PO DAILY 03/14/23 04/19/23 atorvastatin 40 mg tablet 40 mg PO DAILY 03/14/23 04/19/23 brexpiprazole 3 mg tablet (Rexulti) 3 mg PO DAILY 03/14/23 04/19/23 bupropion HCl 150 mg 24 hr tablet, 150 mg PO QDAY 03/14/23 04/19/23 extended release buspirone 10 mg tablet 10 mg PO BID 03/14/23 04/19/23 carvedilol 12.5 mg tablet (Coreg) 12.5 mg PO BID 03/14/23 04/19/23 clopidogrel 75 mg tablet 75 mg PO QDAY 03/14/23 04/19/23 hydralazine 25 mg tablet 25 mg PO Q8H 03/14/23 04/19/23 lamotrigine 100 mg tablet 200 mg PO QDAY 03/14/23 11/05/23 bupropion HCl 300 mg 24 hr tablet, 300 mg PO DAILY 04/19/23 04/19/23 extended release gabapentin 300 mg capsule mg 04/19/23 hydrocodone 10 mg-acetaminophen 1 tab PO Q6H PRN pain 11/05/23 11/05/23 325 mg tablet lamotrigine 200 mg tablet 200 mg PO DAILY 11/05/23 11/05/23 mirtazapine 45 mg tablet 45 mg PO DAILY 11/05/23 11/05/23 olanzapine 2.5 mg tablet 2.5 mg PO BID 11/05/23 11/05/23 tizanidine 4 mg tablet 8 mg PO BEDTIME 11/05/23 11/05/23 Previous Rx's Medication Instructions Recorded celecoxib 200 mg capsule 200 mg PO DAILY #30 caps 03/15/23 Allergies Allergy/AdvReac Type Severity Reaction Status Date / Time No Known Drug Allergies Allergy Verified 04/19/23 13:59 Review of Systems ROS Status of ROS 10 or more systems reviewed and unremarkable except as noted in history and below [facility] Medical History (Updated 11/05/23 @ 20:57 by Dwaine Parikh MD) CAD (coronary artery disease) ?I25.10 - Atherosclerotic heart disease of [place] coronary artery without angina pectoris (ICD-10) Back pain ?M54.9 - Dorsalgia, unspecified (ICD-10) 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 - Fusion of spine, lumbar region (ICD-10) High cholesterol ?E78.00 - Pure hypercholesterolemia, unspecified (ICD-10) Hypertension ?I10 - Essential (primary) hypertension (ICD-10) IDDM (insulin dependent diabetes mellitus) Restless leg syndrome ?G25.81 - Restless legs syndrome (ICD-10) Suicidal ideation ?R45.851 - Suicidal ideations (ICD-10) Sleep apnea ?G47.30 - Sleep apnea, unspecified (ICD-10) Anxiety ?F41.9 - Anxiety disorder, unspecified (ICD-10) Metabolic encephalopathy ?G93.41 - Metabolic encephalopathy (ICD-10) Depression ?F32.A - Depression, unspecified (ICD-10) Acute renal failure ?N17.9 - Acute kidney failure, unspecified (ICD-10) Altered mental status ?R41.82 - Altered mental status, unspecified (ICD-10) Surgical History (Updated 03/14/23 @ 23:37 by Christiana Hou) S/P CABG (coronary artery bypass graft) ?Z95.1 - Presence of aortocoronary bypass graft (ICD-10) History of heart artery stent ?Z95.5 - Presence of coronary angioplasty implant and graft (ICD-10) Family History (Updated 03/14/23 @ 23:00 by Taniya Mercado) Mother Family history of myocardial infarction Social History (Updated 03/14/23 @ 23:05 by Taniya Mercado) Within the past year, how often did you have a drink containing alcohol: never Score interpretation: A score less than 4 is consistent with normal alcohol consumption. 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 Known occupational exposures/hazards: No Highest level of school completed/degree received: some college, no degree Do you want help with school or training: No Are you now , , , , never or living with a partner: In a typical week, how many times do you talk on the telephone with family, friends, or neighbors: never How often do you get together with friends or relatives: never How often do you attend gnosticist or pentecostalism services: never Do you belong to any clubs or organizations such as gnosticist groups unions, frafrents or athletic groups, or school groups: no Total score: 1 Score interpretation: A score of less than or equal to 1 indicates the most socially isolated. Little interest or pleasure in doing things: nearly every day Feeling down, depressed, or hopeless: several days Feel stressed/tense/nervous/anxious/difficulty sleeping: very much Life stressors: recent of family or friend Life stressor details: mother and step father a year ago Due to disability, difficulty making decisions: No Do you think of yourself as: straight/heterosexual Gender Identity: male Exam Constitutional Vital Signs, click to edit/add: Last Vital Signs Temp 98.5 F 11/05/23 14:07 Pulse 93 H 11/05/23 19:15 Resp 23 11/05/23 19:15 BP 153/99 H 11/05/23 14:13 Pulse Ox 95 11/05/23 15:30 O2 Del Method Room Air 11/05/23 14:41 Common normals: no apparent distress, average body habitus, oriented x3, alert and well nourished Eye Common normals: EOMs intact bilaterally and conjunctivae normal Respiratory Common normals: normal respiratory effort, no retractions, no use of accessory muscles and clear to auscultation bilaterally Cardio Common normals: regular rate, regular rhythm, S1 normal heart sound and S2 normal heart sound GI Common normals: Normal to inspection, nondistended, normoactive bowel sounds present, soft to palpation and non-tender Extremity Common normals: normal to inspection and full ROM Neuro Common normals: oriented x3, CN's II-XII intact bilaterally, moves all extremities, no focal motor deficits and no sensory deficits noted Psych Appearance: grossly normal Course Vital Signs Vital signs: Vital Signs Temperature 98.5 F 11/05/23 14:07 Pulse Rate 111 H 11/05/23 14:07 Respiratory Rate 20 11/05/23 14:07 Blood Pressure 151/100 H 11/05/23 14:07 Pulse Oximetry 98 11/05/23 14:07 Oxygen Delivery Method Room Air 11/05/23 14:07 Temperature 98.5 F 11/05/23 14:07 Pulse Rate 93 H 11/05/23 19:15 Respiratory Rate 23 11/05/23 19:15 Blood Pressure 153/99 H 11/05/23 14:13 Pulse Oximetry 95 11/05/23 15:30 Oxygen Delivery Method Room Air 11/05/23 14:41 Medical Decision Making Lab Data Labs: Lab Results 11/05/23 11/05/23 11/05/23 Range/Units 14:23 16:26 16:58 WBC 11.5 H (4.0-11.0) 10^3/uL RBC 5.29 (4.70-6.10) 10^6/uL Hgb 16.1 (14.0-18.0) g/dL Hct 48.2 (42.0-54.0) % MCV 91.1 (80.0-94.0) fL MCH 30.4 (25.9-34.0) pg MCHC 33.4 (29.9-35.2) g/dL RDW 14.9 (11.0-15.0) % Plt Count 239 (150-450) 10^3/uL MPV 11.4 (9.5-13.5) fL Neut % (Auto) 73.1 (43.0-75.0) % Lymph % (Auto) 19.2 L (20.5-60.0) % Garden % (Auto) 6.6 (1.7-12.0) % Eos % (Auto) 0.2 L (0.9-7.0) % Baso % (Auto) 0.6 (0.2-2.0) % Neut # (Auto) 8.4 H (1.4-6.5) 10^3/uL Lymph # (Auto) 2.2 (1.2-3.8) 10^3/uL Garden # (Auto) 0.8 (0.3-0.8) 10^3/uL Eos # (Auto) 0.0 (0.0-0.7) 10^3/uL Baso # (Auto) 0.1 (0.0-0.1) 10^3/uL Abs Immat Gran (auto) 0.03 (0.00-0.03) 10^3/uL Imm/Tot Granulo (auto) 0.3 (0.0-0.5) % Sodium 140 (136-145) mmol/L Potassium 4.2 (3.5-5.1) mmol/L Chloride 103 (98-107) mmol/L Carbon Dioxide 28.0 (21.0-32.0) mmol/L Anion Gap 13.2 BUN 7.0 (7.0-18.0) mg/dL Creatinine 1.32 H (0.70-1.30) mg/dL Est GFR ( Amer) >60 (>=60) Est GFR (Non-Af Amer) 54 L (>=60) BUN/Creatinine Ratio 5.3 Glucose 142 H (74-106) mg/dL Calcium 9.2 (8.5-10.1) mg/dL Total Bilirubin 0.3 (0.2-1.0) mg/dL AST 13 L (15-37) U/L ALT 15 L (16-63) U/L Alkaline Phosphatase 62 (46-116) U/L Total Protein 7.9 (6.4-8.2) g/dL Albumin 3.5 (3.4-5.0) g/dL Globulin 4.4 g/dL Albumin/Globulin Ratio 0.8 Salicylates 9.8 (<=19.9) mg/dL Urine Opiates Screen Positive A (NEGATIVE) Ur Buprenorphine Scrn Negative (NEGATIVE) Ur Oxycodone Screen Negative (NEGATIVE) Urine Methadone Screen Negative (NEGATIVE) Acetaminophen <2.0 L (10.0-30.0) ug/mL Ur Barbiturates Screen Negative (NEGATIVE) U Tricyclic Antidepress Negative (NEGATIVE) Ur Phencyclidine Scrn Negative (NEGATIVE) Ur Amphetamines Screen Negative (NEGATIVE) U Methamphetamines Scrn Negative (NEGATIVE) U Benzodiazepines Scrn Negative (NEGATIVE) Urine Cocaine Screen Negative (NEGATIVE) U Cannabinoids Screen Negative (NEGATIVE) Ethanol Quant <3 mg/dL SARS-CoV-2 Ag (CV2AG) Negative (NEGATIVE) Discharge Plan Discharge Patient Disposition: Still a Patient
--- NOTE | 2023-11-05 21:35 | XR_ITS ---
The [address] [address] Patient Name: TAYLOR MCCLELLAN MRN: [id number] date: 1955 Sex: M Assigned Patient Location: ER Current Patient Location: ER Accession/Order Number: [id number] Exam Date: 11/05/2023 21:40 Report Date: 11/06/2023 20:55 At the request of: AUBREY POON Procedure: XR chest 1V XR CHEST PA 1 VIEW 11/05/2023 10:09 PM EST CLINICAL INDICATION: Fever and chronic cough. COMPARISON: 11/16/2022 TECHNIQUE: Portable semiupright AP view of the chest. FINDINGS: Prior median sternotomy. Cardiac silhouette appears mild to moderately enlarged. Diffuse interstitial opacities are present. No pneumothorax or definite pleural effusion. No displaced rib fractures. Osseous structures demonstrate degenerative changes. Soft tissues are grossly normal. XR/XR chest 1V IMPRESSION: Diffuse interstitial opacities. This may represent pulmonary interstitial edema or atypical infectious etiology. Electronically authenticated by: LARA CHANDLER Date: 11/06/2023 20:55
[2023-11-05 21:47] LABS: Bilirubin Urine SMALL (NEGATIVE); Blood Urine NEGATIVE (NEGATIVE); Clarity Urine CLEAR (CLEAR); Color Urine DK. YELLOW (YELLOW); Glucose Urine UA 100 mg/dL (NEGATIVE); Ketones Urine TRACE mg/dL (NEGATIVE); Leukocyte Esterase Urine NEGATIVE (NEGATIVE); Nitrite Urine NEGATIVE (NEGATIVE); Protein Urine 30 mg/dL (NEG/TRACE); Specific Gravity Urine >=1.030 (1.005-1.025); Urine Microscopic Indicated YES
[2023-11-05 22:01] LABS: Amorphous Sediment Urine MANY; Bacteria Urine LARGE #/HPF (NONE SEEN); Cast Seen? NONE SEEN #/LPF (NONE SEEN); Crystals Seen? Seen #/HPF (None Seen); Mucus Urine NONE SEEN (NONE SEEN); RBC Urine 0-2 #/HPF (0-2); Squamous Epithelial Cell Urine NONE SEEN #/LPF (NONE/RARE); WBC Urine 0-2 #/HPF (NONE SEEN)
[2023-11-05 22:02] LABS: Urine Culture Indicated YES
--- NOTE | 2023-11-05 22:30 | CT_ITS ---
[address] [address] Patient Name: TAYLOR MCCLELLAN MRN: [id number] date: 1955 Sex: M Assigned Patient Location: ER Current Patient Location: ER Accession/Order Number: [id number] Exam Date: 11/05/2023 22:58 Report Date: 11/06/2023 20:55 At the request of: AUBREY POON Procedure: CT chest w con CT CHEST W 11/05/2023 11:20 PM EST CLINICAL INDICATION: Shortness of breath and chronic cough. COMPARISON: 11/29/2021. TECHNICAL FACTORS: CT of the chest with intravenous contrast. Dose reduction techniques were achieved by using automated exposure control and/or adjustment of mA and/or kV according to patient size and/or use of iterative reconstruction technique. FINDINGS: TUBES AND IMPLANTS: None. CHEST WALL AND LOWER NECK: Prior median sternotomy. BONES: No suspicious lesions. Multilevel degenerative changes of the spine. UPPER ABDOMEN: No acute findings. MEDIASTINUM AND JULIA: Mildly prominent mediastinal and hilar lymph nodes are noted. Circumferential wall thickening of the mid to distal esophagus. AORTA: Moderate atherosclerosis without aneurysm. PULMONARY ARTERIES: No embolism. HEART: Mild cardiomegaly. CORONARY ARTERIES: Moderate coronary artery calcifications. LUNG AND AIRWAYS: Background of moderate centrilobular and paraseptal emphysema. There is a 5 mm right middle lobe nodule. PLEURA: Unremarkable. CT/CT chest w con IMPRESSION: 1. Circumferential wall thickening of the mid to distal esophagus concerning for esophagitis. 2. Background of moderate centrilobular and paraseptal emphysema. 3. A 5 mm right middle lobe nodule. Per Fleischner criteria optional twelve-month CT follow-up as clinically warranted. 4. Mild cardiomegaly. Moderate coronary artery calcifications. Electronically authenticated by: LARA CHANDLER Date: 11/06/2023 20:55
[2023-11-06] MEDS: OMEPRAZOLE 40 MG CAPSULE.DR PO (00:02)
== END 2023-11-06 00:16 ==
PROVIDERS: Emergency Medicine; Emergency Provider Internal Medicine; PCP Family Medicine
DX: R45.851 Suicidal ideations (principal); K20.90 Esophagitis, unspecified without bleeding; J43.9 Emphysema, unspecified; R91.1 Solitary pulmonary nodule; Z79.899 Other long term (current) drug therapy; Z79.82 Long term (current) use of aspirin; I25.10 Atherosclerotic heart disease of native coronary artery without angina pectoris; E78.00 Pure hypercholesterolemia, unspecified; I10 Essential (primary) hypertension; E11.9 Type 2 diabetes mellitus without complications; G25.81 Restless legs syndrome; G47.30 Sleep apnea, unspecified; F41.9 Anxiety disorder, unspecified; F32.A Depression, unspecified; Z95.1 Presence of aortocoronary bypass graft; Z95.5 Presence of coronary angioplasty implant and graft; F17.210 Nicotine dependence, cigarettes, uncomplicated; Z20.822 Contact with and (suspected) exposure to COVID-19
CPT/HCPCS: 36415; 71045; 71260; 80053; 80179; 80307; 80320; 80329; 81001; 83605; 84145; 84484; 85025; 87040; 87086; 87811; 93005; 96372; 99285; J1170; Q9967

== ENCOUNTER 2023-12-27 10:31 | Outpatient (OUT) | payer MEDICARE, BC, SELFPAY ==
--- NOTE | 2023-12-27 | XR_ITS ---
The [address] [address] Patient Name: TAYLOR MCCLELLAN MRN: [id number] date: 1955 Sex: M Assigned Patient Location: Current Patient Location: Accession/Order Number: [id number] Exam Date: 12/27/2023 10:34 Report Date: 12/28/2023 10:23 At the request of: GIOVANY NAGY Procedure: XR lumbar spine bending only EXAMINATION: XR lumbar spine bending only HISTORY: LUMBAR PAIN COMPARISON: XR lumbar spine 09/13/2023 FINDINGS: BONES: Mechanical fusion of L4-L5 via right side pedicle screws and rods; no appreciable fracture or loosening. No appreciable bone fracture or listhesis. No appreciable change during flexion and extension although there is very little patient movement. Multilevel moderate degenerative facet arthropathy. DISC SPACES: Moderate-marked narrowing L4-L5, L5-S1. PARASPINOUS: Negative. No paraspinous abnormality is seen. OTHER: Negative. XR/XR lumbar spine bending only IMPRESSION: 1. Grossly stable surgical changes and degenerative changes of lower lumbar spine. 2. No appreciable change in alignment during flexion and extension. Electronically authenticated by: LIAM SCHUMACHER Date: 12/28/2023 10:23
== END 2023-12-27 10:32 | disposition home or self-care (01) ==
LOC: EC 10:33
PROVIDERS: PCP Family Medicine; Visit Provider Orthopaedic Surgery Orthopaedic Surgery of the Spine
DX: M48.07 Spinal stenosis, lumbosacral region (principal)
CPT/HCPCS: 72120

== ENCOUNTER 2024-01-10 02:42 | Outpatient (REF) | payer MEDICARE, BC, SELFPAY ==
--- OUTSIDE RECORDS SUMMARY | 2024-01-10 02:46 | XMS_ITS | CCD ---
Author Organization [facility] Care Team Providers Care Oven Heater Helper Name Role Phone Bro Sanford Primary Care Physician Unavailab Lior Dow Attending Physician Unavailable MD Genesis Reynolds Primary Care Provider MD Segundo Huston Emergency Provider MD Jodie Bauerop Admit Provider MD Lizette Sang Attending Provider LEXIE Mckeon Other Provider Unavailable DO Lawrence Lee Other Provider [phone] MD Kaden Summers Other Provider MD Edinson Bustamante Other Provider MD Itzel Adams Other Provider MD Ramos Fraga Other Provider LILA Hopper Other Provider MD Cinthia Rae Other Provider MD Ramón Ayala Other Provider MD Flavio Ramirez Other Provider Goldy [facility] Pily Espinal Other Provider MD Adelaide Leonardo Other Provider MD Itzel Adams Referring Provider MD Genesis Reynolds Primary Care Provider MD Benson Lane Attending Provider Benson Lane Unavailable DR GENESIS VILLANUEVA Admitting Unavailable DR GENESIS VILLANUEVA Primary Care Unavailable GAIL ., DR HURTADO Attending Unavailable GAIL ., DR HURTADO Primary Care Unavailable ANA PAULA ., LAVELL Admitting Unavailable ANA PAULA ., LAVELL Consulting Unavailable ANA PAULA ., LAVELL Attending Unavailable MOMO KHAN Consulting Unavailable GAIL ., DR HURTADO Primary Care Unavailable AUBREY POON Consulting Unavailable AUBREY POON Attending Unavailable AUBREY POON Admitting Unavailable GAIL ., DR HURTADO Primary Care Unavailable DIAB ., PHILL Admitting Unavailable DIAB ., PHILL Attending Unavailable ALESIA FERNANDEZ Consulting Unavailable RAND PANDEY Consulting Unavailable DIAB ., PHILL Consulting Unavailable GAIL ., DR HURTADO Primary Care Unavailable HAY ., DR GARCIA Attending Unavailable HAY ., DR GARCIA Admitting Unavailable ISAEL, DR SARAI Avendaño Consulting Unavailable HAY ., DR GARCIA Consulting Unavailable HOY ., DR HURTADO Primary Care Unavailable HAY ., DR GARCIA Attending Unavailable HAY ., DR GARCIA Admitting Unavailable KIT ., CAROLINE TAPIA Consulting UnavailMAGGIE Liriano Consulting Unavailable TEMI RUSSO Consulting Unavailable SARAI AVALOS Consulting Unavailable GAIL ., DR HURTADO Primary Care Unavailable HOY ., DR HURTADO Consulting Unavailable HOJung ., DR HURTADO Attending Unavailable HOJung ., DR HURTADO Admitting Unavailable SARAI AVALOS Consulting Unavailable ANA PAULA ., LAVELL Consulting Unavailable ДМИТРИЙ OSWALD Consulting Unavailable NIGEL TADEO Consulting Unavailable MENDOZA BEE Consulting Unavailable MILAD ABARCA Consulting Unavailable GAIL ., DR HURTADO Primary Care Unavailable HOJung ., DR HURTADO Attending Unavailable HOY ., DR HURTADO Consulting Unavailable GAIL ., [...] Consulting Unavailable EFFIE WERNER Admitting Unavailable Itzel Adasm Attending Unavailable Itzel Adams Attending Unavailable Itzel Adams Attending Unavailable Itzel Adams Attending Unavailable Sharad MsElizabeth Moore Attending Genesis Ozuna Primary Care Unavailable Benson Lane Admitting Unavailable Benson Lane S Attending Unavailable [place] Admitting Unavailab Danilo Ross Attending Unavailab Genesis vIy Primary Care Unavailable Bro Sanford MD Primary Care Provider JUDY HURT Referring Unavailable BRO SANFORD Primary Care UnavailSUSAN Hidalgo Referring Unavailable BOR SANFORD Primary Care Unavailabl e BRO SANFORD Primary Care Unavailabl e ANTHONY GREENE Attending Unavailable Allergies Allergy Classification Reported Allergen(s) Allergy Type Date of Onset Reaction(s) Facility (4 sources) Amitriptyline; Translations: [Amitriptyline] Drug Allergy 01-24-20 19 Unknown Reaction [facility] (12 sources) atorvastatin; Translations: [atorvastatin] Drug Allergy 01-24-20 19 Unknown Reaction, Unknown [facility] (6 sources) chlordiazePOXIDE; Translations: [chlordiazepoxide] Drug Allergy 01-24-20 19 Unknown Reaction [facility] (6 sources) clidinium; Translations: [clidinium] Drug Allergy 01-24-20 19 Unknown Reaction [facility] (14 sources) fentaNYL; Translations: [Fentanyl] Drug Allergy 12-27-19 17 Unknown Reaction, Unknown [facility] (7 sources) venlafaxine; Translations: [venlafaxine] Drug Allergy 05-13-20 14 Other (See Comments) [facility] (2 sources) Citalopram; Translations: [Citalopram] Drug Allergy 07-17-20 Unknown Reaction [facility] (4 sources) Simvastatin; Translations: [simvastatin] Drug Allergy 07-17-20 Unknown Reaction [facility] (5 sources) Succinylcholine; Translations: [Succinylcholine] Drug Allergy 09-09-19 05 Unknown Reaction [facility] (7 sources) Amitriptyline; Translations: [Elavil] Drug Allergy 04-20-20 14 Unknown [facility] (6 sources) chlordiazePOXIDE / clidinium Drug Allergy Unknown [facility] Other (7 sources) venlafaxine; Translations: [Effexor] Drug Allergy 04-06-20 14 Unknown [facility] (1 source) buPROPion Drug Allergy [facility] (1 source) Citalopram Drug Allergy 12-31-19 20 [facility] (1 source) mirabegron Drug Allergy [facility] (1 source) Simvastatin Drug Allergy [facility] (1 source) tiZANidine Drug Allergy [facility] (1 source) Amitriptyline Drug Allergy 05-18-20 14 [facility] [employer] Phone: Medications Current Medications Medication Drug Class(es) Dates Sig (Normalized) Sig (Original) acetaminophen 650 mg oral tablet (11 sources) Start: 07-17-2022 take 650 mg by mouth every four hours Acetaminophen Active 650 MG PO Q4H July 17, 2022 12:00am Start: 01-12-2018 End: 12-23-2018 take 500 mg by mouth every six hours Acetaminophen Discontinued 500 MG PO Q6H January 11, 2018 11:00pm December 23, 2018 4:29pm [id number] 200 actuat albuterol 0.09 mg/actuat metered dose inhaler (1 source) beta2-Adrenergic Agonist Start: 01-01-2017 take 2 puff(s) by inhalation every six hours as needed albuterol sulfate HFA 108 (90 BASE) MCG/ACT inhaler Inhale 2 puffs into the lungs every 6 hours as needed for Shortness of Breath 1 Inhaler 3 01/01/2017 Active amitriptyline hydrochloride 50 mg oral tablet (4 sources) Tricyclic Antidepressant Start: 07-17-2022 take 50 mg by mouth once daily at bedtime Amitriptyline Active 50 MG PO Daily at bedtime July 17, 2022 12:00am take 1 tablet by mouth once domenica y amitriptyline (ELAVIL) 100 MG tablet Take 1 tablet by mouth nightly 0 Active aspirin 81 mg chewable tablet (14 sources) Platelet Aggregation Inhibitor, Nonsteroidal Anti-inflammatory Drug Start: 01-12-2018 take 1 tablet by mouth once daily Aspirin (Aspirin Childrens) 81 mg Tablet,Chewable Active 81 MG PO Daily January 11, 2018 11:00pm atorvastatin 40 mg oral tablet (11 sources) HMG-CoA Reductase Inhibitor Start: 07-17-2022 take 40 mg by mouth once daily Atorvastatin Active 40 MG PO Daily July 17, 2022 12:00am Start: 12-23-2018 End: 12-23-2018 take 1 tablet by mouth once daily Atorvastatin (Lipitor) 40 mg Tablet Discontinued 40 MG PO Daily December 22, 2018 11:00pm December 23, 2018 5:01pm brexpiprazole 3 mg oral tablet (4 sources) Atypical Antipsychotic Start: 07-17-2022 take 1 tablet by mouth once daily Brexpiprazole (Rexulti) 3 mg Tablet Active 3 MG PO 1 time daily July 17, 2022 12:00am 24 hr buPROPion hydrochloride 150 mg extended release oral tablet (3 sources) Aminoketone Start: 07-17-2022 take 150 mg by mouth once daily Bupropion Hcl Active 150 MG PO 1 time daily July 17, 2022 12:00am take 1 tablet by chirag th once daily in the morning buPROPion (WELLBUTRIN XL) 300 MG extende d release tablet Take 1 tablet by mouth every morning 0 Active busPIRone hydrochloride 10 mg oral tablet (6 sources) Start: 07-17-2022 take 10 mg by [...] days Active carvedilol 12.5 mg oral tablet (4 sources) alpha-Adrenergic Barbara, beta-Adrenergic Barbara Start: 07-17-20 take 12.5 mg by mouth twice daily at mealtime Carvedilol Active 12.5 MG PO Twice daily July 17, 2022 12:00am must administer with a meal/food celecoxib 200 mg oral capsule (10 sources) Nonsteroidal Anti-inflammatory Drug Start: 07-17-20 take [...] 2019 9:22pm clopidogrel 75 mg oral tablet (20 sources) P2Y12 Platelet Inhibitor Start: 12-17-2019 End: [...] 9:24pm hydrALAZINE hydrochloride 25 mg oral tablet (4 sources) Arteriolar Vasodilator Start: 07-17-2022 take 25 mg by mouth three times daily Hydralazine Active 25 MG PO Three times daily July 17, 2022 12:00am lamoTRIgine 100 mg oral tablet (4 sources) Mood Stabilizer, Anti-epileptic Agent Start: 07-17-2022 take 100 mg by mouth once daily Lamotrigine Active 100 MG PO Daily July 17, 2022 12:00am take 1 tablet by mouth once domenica y lamoTRIgine (LAMICTAL) 200 MG tablet Take 1 tablet by mouth daily 0 Active lisinopril 10 mg oral tablet (11 sources) Angiotensin Converting Enzyme Inhibitor Start: 07-17-2022 take 10 mg by mouth once daily Lisinopril Active 10 MG PO Daily July 17, 2022 12:00am Start: 01-12-2018 End: 01-17-2018 take 20 mg by mouth once daily Lisinopril Discontinued 20 MG PO Daily January 11, 2018 11:00pm January 17, 2018 10:29am metoprolol tartrate 50 mg oral tablet (1 source) beta-Adrenergic Barbara metoprol ol tartrate (LOPRESSOR) 50 MG tablet Take 50 mg by mouth 0 Active rOPINIRole 1 mg oral tablet (16 sources) Nonergot Dopamine Agonist Start: 07-17-20 take 1 mg by mouth once daily [...] Q8H 8 3 July 20, 2022 12:00am UNABLE TO FIND (1 source) UNABLE TO FIND nucyenta for pain 0 Active divalproex sodium 500 mg delayed release oral [...] 9:23pm take 1 tablet by chirag th twice daily divalproex (DEPAKOTE) [address] tablet Take 1 tablet by mouth 2 times daily 0 Active take 1 tablet by chirag th every twelve hours Depakote ER 250 MG 1 tablet Orally twice a day for 30 days Active Completed/Discontinued Medications Medication Drug Class(es) Dates Sig (Normalized) Sig (Original) acetaminophen 325 mg / HYDROcodone bitartrate 5 mg oral tablet (12 sources) Opioid Agonist Start: 12-17-2019 End: 07-20-2022 take 1 tablet by mouth twice daily Hydrocodone-Aceta minophen (Clio) 5-325 mg tablet Discontinued 1 TAB PO [...] Discontinued 400 MG PO Three times daily April 19, 2019 11:00pm December 16, 2019 [...] Tablet Discontinued 300 MG PO Twice daily 0 January 17, 2018 10:35am February 08, 2018 9:12pm Start: 01-12-2018 End: 01-17-2018 take 1 tablet by mouth three times daily Gabapentin (Neurontin) 800 mg Tablet Discontinued 800 MG PO Three times daily January 11, 2018 11:00pm January 17, 2018 10:36am gabapentin (NEUR ONTIN) 800 MG tablet Take 600 mg by mouth 4 times daily. 0 Active hydroCHLOROthiazide 25 mg / lisinopril 20 mg [...] 10:59am hydrOXYzine hydrochloride 25 mg oral tablet (15 sources) Antihistamine Start: 12-16-2019 End: 12-17-2019 take [...] 9:31pm take 1 tablet by chirag th three times daily as needed hydrOXYzine HCl (ATARAX) 50 MG tablet Take 1 tablet by mouth 3 times daily as needed for Itching 0 Active take 1 tablet by chirag th four [...] 2018 10:36am take 1 tablet by chirag every twenty-four hours LORazepam 0.5 MG 1 tablet Orally Once a day for 30 days f41.1 Active 24 hr metFORMIN hydrochloride 500 mg extended release oral tablet (14 sources) Biguanide Start: 01-12-2018 End: 07-17-2022 take 500 mg by mouth twice daily Metformin Discontinued 500 MG PO Twice daily January 11, 2018 11:00pm July 17, 2022 10:36pm take 1 tablet by mouth twice tess ly METFORMIN HCL PO Take 1 tablet by mouth 2 times daily 0 Active mirtazapine 30 mg oral tablet (9 sources) Start: 12-16-2019 End: 01-07-2020 take 45 mg by mouth once daily at bedtime Mirtazapine Discontinued 45 MG PO Daily at bedtime December 16, 2019 9:30pm January 07, 2020 5:38am Start: 04-20-2019 End: 12-16-2019 take 30 mg by mouth once daily at bedtime Mirtazapine Discontinued 30 MG PO Daily at bedtime April 19, 2019 11:00pm December 16, 2019 9:31pm take 3 tablets by mo [facility] once daily mirtazapine (REMERON QUEENIE-TAB) 15 MG disintegrating tablet Take 3 tablets by mouth nightly 0 Active morphine sulfate 15 mg extended release oral tablet (20 sources) Opioid Agonist Start: 02-08-2018 End: 12-23-2018 take 60 mg by mouth every twelve hours Morphine Discontinued 60 MG PO Every 12 hours February 08, 2018 9:15pm December 23, 2018 [...] 9:14pm apply 1 dose transde rmal route every twenty-four hours nicotine (NICODERM CQ) 21 MG/24HR Place 1 patch onto the skin every 24 hours 0 Active apply 1 dose transde rmal route once [...] 2019 9:26pm risperiDONE 3 mg oral tablet (19 sources) Atypical Antipsychotic Start: 12-17-2019 End: 01-07-2020 [...] 10:36pm tamsulosin hydrochloride 0.4 mg oral capsule (15 sources) alpha-Adrenergic Barbara Start: 01-12-2018 End: 12-23-2018 Tamsulosin Discontinued December 22, 2018 11:00pm December 23, 2018 4:34pm tiZANidine 4 mg oral capsule (8 sources) Central alpha-2 Adrenergic Agonist Start: 01-01-2017 End: 01-17-2018 take 4 mg by mouth [...] 2019 9:26pm take 1 tablet by chirag th once daily traZODone (DESYREL) 100 MG tablet Take 1 tablet by mouth nightly 0 Active vancomycin 50 mg/ml injectable solution (7 [...] Chronic Coronary atherosclerosis and other heart disease (7 sources) Coronary arteriosclerosis; Translations: [Atherosclerotic heart disease of [place] coronary artery without angina pectoris] Onset: 11-25-2014 01-14-2020 Chronic Coronary atherosclerosis and other heart disease (3 sources) Presence of aortocoronary bypass graft; Translations: [Aortocoronary bypass status] Onset: 01-21-2023 07-17-2022 Episodic Crushing injury or internal injury (5 sources) Injury of kidney; Translations: [Acute kidney failure, unspecified] 12-17-2019 Episodic Diabetes mellitus without complication (11 sources) Diabetes mellitus; Translations: [Type 2 diabetes mellitus without complications] Onset: 11-25-2014 12-17-2019 Chronic Disorders of lipid metabolism (5 sources) Hyperlipidemia; Translations: [Hyperlipidemia, unspecified] Onset: 11-25-2014 07-18-2022 Chronic Essential hypertension (10 sources) Hypertensive disorder; Translations: [Essential (primary) hypertension] Onset: 11-25-2014 01-14-2020 Chronic Fluid and electrolyte disorders (7 sources) Hypokalemia; Translations: [Hypokalemia] Onset: 11-15-2022 04-11-2019 Episodic Genitourinary symptoms and ill-defined conditions (6 sources) Frequency of micturition; Translations: [Unspecified symptoms and signs involving the genitourinary system] Onset: 06-21-2022 Episodic Hyperplasia of prostate (6 sources) Benign prostatic hyperplasia; Translations: [Benign prostatic hyperplasia without lower urinary tract symptoms] Onset: 01-21-2023 02-11-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 Hypertension with complications and secondary hypertension (1 source) Hypertensive heart disease with heart failure; Translations: [HTN HEART DISEASE W/HEART FAIL] Onset: 01-21-2023 Chronic Mood disorders (16 sources) Major depressive disorder; Translations: [Severe depressed bipolar I disorder] Onset: 06-25-2022 12-23-2019 Chronic Nonspecific chest pain (5 sources) Chest pain; Translations: [Chest pain, unspecified] 07-17-2022 Episodic Occlusion or stenosis of precerebral arteries (1 source) Carotid artery stenosis; Translations: [Occlusion and stenosis of unspecified carotid artery] Onset: 11-25-2014 12-26-2016 Chronic Other aftercare (1 source) Other parts counterman (current) drug therapy; Translations: [OTH HAND SOLE SEWER CURRENT DRUG THERAPY] Onset: 01-21-2023 Episodic Other aftercare (1 source) intermodal customer service (current) use of antithrombotics/antip latelets; Translations: [HAND SOLE SEWER 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/ANTIPLAT LETS] Onset: 12-20-2022 Episodic Other circulatory [...] sources) Ataxia; Translations: [Ataxia, unspecified] 01-13-2018 Episodic Other nutritional; endocrine; and metabolic disorders (1 source) Obesity; Translations: [Obesity, unspecified] Onset: 11-25-2014 12-26-2016 Chronic Peripheral and visceral atherosclerosis (2 sources) Peripheral vascular disease, unspecified; Translations: [Peripheral vascular disease, unspecified] Onset: 11-25-2014 12-26-2016 Chronic Pneumonia (except that caused by tuberculosis [...] joint; Translations: [Sacroiliitis, not elsewhere classified] Onset: 11-25-2014 Chronic Substance-related disorders (1 source) Nicotine dependence, cigarettes, uncomplicated; Translations: [NICOTINE DEPEND CIGARETTES UNCOMP] Onset: 08-08-2022 Chronic Suicide and intentional self-inflicted injury (3 sources) [...] ANEMIA UNSPECIFIED] Onset: 06-25-2022 Episodic E Codes: Adverse effects of medical drugs (3 sources) Adverse effect of benzodiazepines, initial encounter; Translations: [Adverse effect of unspecified drugs, medicaments and biological substances, initial encounter] Onset: 06-25-2022 Episodic E Codes: Fall (1 source) Fall on same level from slipping, tripping and stumbling without subsequent striking against object, initial encounter; Translations: [FALL SAME LVL SLIP NO STRK OBJ INIT] Onset: 08-08-2022 Episodic Immunizations and screening for infectious disease (1 source) Encounter for immunization; Translations: [ENCOUNTER FOR IMMUNIZATION] Onset: 08-08-2022 Episodic Malaise and fatigue (8 sources) Asthenia; Translations: [Weakness] Onset: 06-25-2022 07-17-2022 Episodic Other aftercare (1 source) residential (current) use of aspirin; Translations: [HAND SOLE SEWER CURRENT USE OF ASPIRIN] Onset: 07-20-2022 Episodic [...] [PAIN IN RIGHT KNEE] Onset: 08-10-2022 Episodic Spondylosis; intervertebral disc disorders; other back problems (18 sources) Backache; Translations: [Dorsalgia, unspecified] Onset: 11-25-2014 12-24-2018 Episodic Substance-related disorders (2 sources) Other psychoactive substance use, unspecified, uncomplicated; Translations: [Other psychoactive substance use, unspecified, uncomplicated] Onset: 04-26-2023 Episodic Superficial injury; contusion (3 sources) Contusion of other part of head, initial encounter; Translations: [Abrasion of other part of head, initial encounter] Onset: 08-08-2022 Episodic Unclassified (1 source) LOW BACK PAIN, UNSPECIFIED; Translations: [LOW BACK PAIN, UNSPECIFIED] Onset: 10-26-2022 Results Test Name Value Interpretation Reference Range Facility Urinalysis w/ Microon 2023 Bacteria TRACE Abnormal NONE [facility] Comment on above: Performed By: #### U [facility] #### [facility] [address] [place] [address] Manager Applied: Sarai Howell MD Bilirubin, SemiQt,Ur Negative Normal NEG [facility] Comment on above: Performed By: #### U AMIC #### [facility] [address] [place], [place] [id number] Manager Applied: Sarai Howell MD Blood, Urine Negative Normal NEG [facility] Comment on above: Performed By: #### U AMIC #### [facility] [address] [place], [facility] Manager Applied: Sarai Howell MD Clarity (U) Clear Normal CLEAR [facility] Comment on above: Performed By: #### U AMIC #### [facility] [address] [place] [id number] Manager Applied: Sarai Howell MD Color (U) Yellow Normal YEL [facility] Comment on above: Performed By: #### U AMIC #### [facility] [address] [place], [place] [id number] Manager Applied: Sarai Howell MD Epithelial cells LM Ql (Urine sed) 0 TO 2 Normal 0-5 [facility] Comment on above: Performed By: #### U AMIC #### [address] [place], [place] [id number] Manager Applied: Sarai Howell MD Glucose Ql (U) Negative Normal NEG [facility] Comment on above: Performed By: #### U AMIC #### [facility] [address] [place], [place] [id number] Manager Applied: Sarai Howell MD Ketones Ql (U) Negative Normal NEG [facility] Comment on above: Performed By: #### U AMIC #### [facility] [address] [place] [address] Manager Applied: Sarai Howell MD Leukocyte esterase Test strip Ql (U) Negative Normal NEG [facility] Comment on above: Performed By: #### U AMIC #### [facility] [address] [place], [place] [id number] Manager Applied: Sarai Howell MD Mucus Strands TRACE Abnormal NONE [facility] Comment on above: Performed By: #### U AMIC #### [facility] [address] [place], [place] [id number] Manager Applied: Sarai Howell MD Nitrite,Ur Negative Normal NEG [facility] Comment on above: Performed By: #### U AMIC #### [facility] [address] [place], [place] [id number] Manager Applied: Sarai Howell MD PH,Ur 7.0 Normal 5.0-9.0 [facility] Comment on above: Performed By: #### U AMIC #### [facility] [address] [place], [place] [id number] Manager Applied: Sarai Howell MD Protein Ql (U) Negative Normal NEG [facility] Comment on above: Performed By: #### U AMIC #### [facility] [address] [place], [place] [id number] Manager Applied: Sarai Howell MD Spec. [place],Ur 1.015 Normal 1.010-1.02 0 [facility] Comment on above: Performed By: #### U AMIC #### [facility] [address] [place], [place] [id number] Manager Applied: Sarai Howell MD Urine RBC's 0 TO 2 Normal 0-2 [facility] Comment on above: Performed By: #### U AMIC #### [facility] [address] [place], [place] [id number] Manager Applied: Sarai Howell MD Urine WBC's 2 TO 5 Normal 0-5 [facility] Comment on above: Performed By: #### U AMIC #### [facility] [address] [place], [place] [id number] Manager Applied: Sarai Howell MD Urobilinogen,Ur Normal Normal 0.0-1.0 [facility] Comment on above: Performed By: #### U AMIC #### [facility] [address] [place] [address] Manager Applied: Sarai Howell MD Urinalysis with Microscopico n 11-10-2023 Bacteria LM Ql (Urine sed) TRACE Abnormal None [facility] Bilirubin Ql (U) Negative NEGATIVE [facility] Clarity (U) Clear Clear [facility] Color (U) Yellow Yellow [facility] Epithelial cells LM.HPF (Urine sed) [#/Area] 0 TO 2 [facility] Glucose Test strip (U) [Mass/Vol] Negative NEGATIVE mg/dL [facility] Hemoglobin Auto test strip Ql (U) Negative NEGATIVE [facility] Interpretation and review of laboratory results Abnormal [facility] Ketones (U) [Mass/Vol] Negative NEGAT MELISSA mg/dL [facility] Leukocyte esterase Test strip Ql (U) Negative NEGATIVE [facility] Mucus Ql (Urine sed) TRACE Abnormal None [facility] Nitrite Ql (U) Negative NEGATIVE [facility] pH (U) 7.0 [pH] 5.0 - 9.0 [facility] Protein (U) [Mass/Vol] Negative NEGAT MELISSA mg/dL [facility] RBC LM.HPF (Urine sed) [#/Area] 0 TO 2 [facility] Specific gravity (U) [Rel density] 1.015 1.010 - 1.020 [facility] Urobilinogen Qn (U) Normal 0.0 - 1. 0 EU/dL [facility] WBC LM.HPF (Urine sed) [#/Area] 2 TO 5 [facility] Cult, Bloodon 04-30-2023 Cult, Blood Specimen Description .BLOOD Special Requests lhand, 9ml, 2 bottles Culture NO GROWTH 5 DAYS Report Status FINAL 04/30/2023 Normal [facility] Comment on above: Performed By: #### B CUL2 #### [facility] [address] [place] [address] Manager Applied: Sarai Howell MD Cult,Bloodon 04-30-2023 Cult,Blood Specimen Description .BLOOD Special Requests LAC, 20ML Culture NO GROWTH 5 DAYS Report Status FINAL 04/30/2023 Normal [facility] Comment on above: Performed By: #### B C #### [facility] [address] [place] [address] Manager Applied: Sarai Howell MD Lipid Profileon 04-26-2023 Cholesterol [Mass/Vol] 171 mg/dL Normal <200 [facility] Comment on above: Result Comment: Cholesterol Guidelines: <200 Desirable 200-240 Borderline >240 Undesirable Performed By: #### L IPR #### [address] [address] Manager Applied: Spencer Tapia MD Cholesterol in HDL [Mass/Vol] 30 mg/dL Low >40 [facility] Comment on above: Result Comment: HDL Guidelines: <40 Undesirable 40-59 Borderline >59 Desirable Performed By: #### L IPR #### [facility] [address] [place] [address] Manager Applied: Spencer Tapia MD Cholesterol in LDL [Mass/Vol] 112 mg/dL Normal 0-130 [facility] Comment on above: Result Comment: LDL Guidelines: <100 Desirable 100-129 Near to/above Desirable 130-159 Borderline >159 Undesirable Direct (measured) LDL and calculated LDL are not interchangeable tests. Performed By: #### L IPR #### [facility] [employer] [address] [place] [address] Manager Applied: Spencer Tapia MD Cholesterol.total/Chol esterol in HDL [Mass ratio] 5.7 {ratio} High <5 [facility] Comment on above: Performed By: #### L IPR #### [facility] [address] [place] [address] Manager Applied: Spencer Tapia MD Triglyceride [Mass/Vol] 143 mg/dL Normal <150 [facility] Comment on above: Result Comment: Triglyceride Guidelines: <150 Desirable 150-199 Borderline 200-499 High >499 Very high Based on AHA Guidelines for fasting triglyceride, June 2012. Performed By: #### L IPR #### [facility] [address] [place] [address] Manager Applied: Spencer Tapia MD Basic Metabolic Profon 04-25 Anion gap [Moles/Vol] 13 mmol/L Normal 05-26 [facility] Comment on above: Performed By: #### T ANJALI AYALA, BMP #### [facility] [address] [place], [place] [phone] Manager Applied: Sarai Howell MD BUN/CRE Ratio 14 Normal - [facility] Comment on above: Performed By: #### ANJALI PRADHAN, BMP #### [facility] [address] [place], [place] [id number] Manager Applied: Sarai Howell MD Calcium [Mass/Vol] 9.3 mg/dL Normal 8.6-10.4 [facility] Comment on above: Performed By: #### T ANJALI AYALA, BMP #### [facility] [address] [place], [place] 0870383 Manager Applied: Sarai Howell MD Chloride [Moles/Vol] 101 mmol/L Normal 98-107 [facility] Comment on above: Performed By: #### T ANJALI AYALA, BMP #### [facility] [address] [place], [place] [phone] Manager Applied: Sarai Howell MD CO2 [Moles/Vol] 25 mmol/L Normal 20-31 [facility] Comment on above: Performed By: #### T ANJALI AYALA, BMP #### [facility] [address] [place], [place] 9171783 Manager Applied: Sarai Howell MD Creatinine [Mass/Vol] 1.3 mg/dL High 0.7-1.2 [facility] Comment on above: Performed By: #### T ANJALI AYALA, BMP #### [facility] [address] [place] [address] Manager Applied: Sarai Howell MD GFR/1.73 sq M.predicted among non-blacks MDRD (S/P/Bld) [Vol rate/Area] mL/min/{1.73_m2} Normal >60 [facility] Comment on above: Result Comment: These results [...] affects renal tubular secretion. Performed By: #### ANJALI PRADHAN, BMP #### [facility] [address] [place], [place] 1011283 Manager Applied: Sarai Howell MD Glucose [Mass/Vol] 87 mg/dL Normal 70-99 [facility] Comment on above: Performed By: #### ANJALI PRADHAN, BMP #### [address] [place] [address] Manager Applied: Sarai Howell MD Potassium [Moles/Vol] 3.9 mmol/L Normal 3.7-5.3 [facility] Comment on above: Performed By: #### ANJALI PRADHAN, BMP #### [facility] [address] [place], [place] [phone] Manager Applied: Sarai Howell MD Sodium [Moles/Vol] 139 mmol/L Normal 135-144 [facility] Comment on above: Performed By: #### ANJALI PRADHAN, BMP #### [facility] [address] [place] [address] Manager Applied: Sarai Howell MD Urea nitrogen [Mass/Vol] 18 mg/dL Normal 8-23 [facility] Comment on above: Performed By: #### ANJALI PRADHAN, BMP #### [address] [place], [place] [phone] Manager Applied: Sarai Howell MD CBC with Diffon 04-25-2023 Abs. Basophil 0.04 k/uL Normal 0.00-0.20 [facility] Comment on above: Performed By: #### ANJALI PRADHAN, BMP #### [address] [place] [address] Manager Applied: Sarai Howell MD Abs.Imm.Granulocyte 0.04 k/uL Normal 0.00-0.30 [facility] Comment on above: Performed By: #### ANJALI PRADHAN, BMP #### [address] [place], [place] [address] Manager Applied: Sarai Howell MD Abs.Neutrophil (Seg) 5.64 k/uL Normal 1.50-8.10 [facility] Comment on above: Performed By: #### ANJALI PRADHAN, BMP #### [address] [place] [address] Manager Applied: Sarai Howell MD Basophils/100 WBC (Bld) 1 % Normal 0-2 [facility] Comment on above: Performed By: #### ANJALI PRADHAN, BMP #### [address] [place], [facility]83 Manager Applied: Sarai Howell MD Eosinophils (Bld) [#/Vol] 0.09 10*3/uL Normal 0.00-0.44 [facility] Comment on above: Performed By: #### ANJALI PRADHAN, BMP #### [address] [place], [place] 9366383 Manager Applied: Sarai Howell MD Eosinophils/100 WBC (Bld) 1 % Normal 1-4 [facility] Comment on above: Performed By: #### ANJALI PRADHAN, BMP #### [facility] [address] [place] [address] Dr. [place], [place] [phone] Manager Applied: Sarai Howell MD Erythrocyte distribution width (RBC) [Ratio] 15.4 % High 11.8-14.4 [facility] Comment on above: Performed By: #### ANJALI PRADHAN, BMP #### [facility] [address] [place] [phone] Manager Applied: Sarai Howell MD Hematocrit (Bld) [Volume fraction] 40.6 % Low 40.7-50.3 [facility] Comment on above: Performed By: #### ANJALI PRADHAN, BMP #### [address] [place] [phone] Manager Applied: Sarai Howell MD Hemoglobin (Bld) [Mass/Vol] 13.1 g/dL Normal 13.0-17.0 [facility] Comment on above: Performed By: #### ANJALI PRADHAN, BMP #### [address] [place], [place] 1200183 Manager Applied: Sarai Howell MD Immature granulocytes/100 WBC (Bld) 1 % High 0 [facility] Comment on above: Performed By: #### ANJALI PRADHAN, BMP #### [address] [place] [phone] Manager Applied: Sarai Howell MD Lymphocytes (Bld) [#/Vol] 1.86 10*3/uL Normal 1.10-3.70 [facility] Comment on above: Performed By: #### ANJALI PRADHAN, BMP #### [address] [place], [place] 5872183 Manager Applied: Sarai Howell MD Lymphocytes/100 WBC (Bld) 22 % Low 24-43 [facility] Comment on above: Performed By: #### T ANJALI AYALA, BMP #### [facility] [address] [place] [address] Manager Applied: Sarai Howell MD MCH (RBC) [Entitic mass] 29.0 pg Normal 25.2-33.5 [facility] Comment on above: Performed By: #### T ANJALI AYALA, BMP #### [facility] [address] [place] [phone] Manager Applied: Sarai Howell MD MCHC (RBC) [Mass/Vol] 32.3 g/dL Normal 28.4-34.8 [facility] Comment on above: Performed By: #### T ANJALI AYALA, BMP #### [address] [place] [phone] Manager Applied: Sarai Howell MD MCV (RBC) [Entitic vol] 89.8 fL Normal 82.6-102.9 [facility] Comment on above: Performed By: #### ANJALI PRADHAN, BMP #### [address] [place] [phone] Manager Applied: Sarai Howell MD Monocytes (Bld) [#/Vol] 0.83 10*3/uL Normal 0.10-1.20 [facility] Comment on above: Performed By: #### T ANJALI AYALA, BMP #### [facility] [address] [place], [facility]83 Manager Applied: Sarai Howell MD Monocytes/100 WBC (Bld) 10 % Normal 3-12 [facility] Comment on above: Performed By: #### T ANJALI AYALA, BMP #### [facility] [address] [place] [address] Manager Applied: Sarai Howell MD Neutrophil (Seg) 65 % Normal 36-65 [facility] Comment on above: Performed By: #### T JAMIE CDP, BMP #### [facility] [address] [place], [place] [phone] Manager Applied: Sarai Howell MD NRBC Automated 0.0 per 100 WBC Normal 0.0 [facility] Comment on above: Performed By: #### ANJALI PRADHAN, BMP #### [facility] [address] [place], [facility]83 Manager Applied: Sarai Howell MD Platelet mean volume (Bld) [Entitic vol] 11.9 fL Normal 8.1-13.5 [facility] Comment on above: Performed By: #### ANJALI PRADHAN, BMP #### [address] [place], [place] [phone] Manager Applied: Sarai Howell MD Platelets (Bld) [#/Vol] 254 10*3/uL Normal 138-453 [facility] Comment on above: Performed By: #### ANJALI PRADHAN, BMP #### [address] [place], [place] 4443283 Manager Applied: Sarai Howell MD RBC (Bld) [#/Vol] 4.52 10*6/uL Normal 4.21-5.77 [facility] Comment on above: Performed By: #### ANJALI PRADHAN, BMP #### [address] [place], [place] 4193983 Manager Applied: Sarai Howell MD WBC (Bld) [#/Vol] 8.5 10*3/uL Normal 3.5-11.3 [facility] Comment on above: Performed By: #### ANJALI PRADHAN, BMP #### [address] [place], [place] [phone] Manager Applied: Sarai Howell MD CT HEAD WO CONTRASTon [...] Babs Mae MD 04/25/23 Final result Normal [facility] Flu A/B Ag Detectionon 04-25 Flu A Ag Detection Negative Normal NEG [facility] Comment on above: Result Comment: for Influenza A Antigen Performed By: #### F HECTORABA #### [facility] [address] [place] [address] Manager Applied: Sarai Howell MD Flu B Ag Detection Negative Normal NEG [facility] Comment on above: Result Comment: for Influenza B Antigen. Performed By: #### F HECTORABA #### [facility] [address] [place] [address] Manager Applied: Sarai Howell MD Lactic Acidon 04-25-2023 Lactate [Moles/Vol] 1.3 mmol/L Normal 0.5-2.2 [facility] Comment on above: Performed By: #### L ACTIC #### [facility] [address] [place] [address] Manager Applied: Sarai Howell MD [id number] 04-25-2023 SARS-CoV-2 (COVID-19) RNA JOSÉ MIGUEL+probe Ql (Unsp spec) Not detected Normal NOTDET [facility] Comment on above: Result Comment: Rapid NAAT: [...] management decisions. Fact sheet for Healthcare Providers: https://www.fda.gov/media/294629/download Fact sheet for Patients: https://www.fda.gov/media/307665/download Methodology: Isothermal Nucleic Acid Amplification Performed By: #### F HENRY #### [facility] [address] [place] [address] Manager Applied: Sarai Howell MD Troponinon 04-25-2023 Troponin, High Sens 26 ng/L High 0-22 [facility] Comment on above: Result Comment: High Sensitivity Troponin values cannot be compared with other Troponin methodologies. Performed By: #### F HENRY #### [facility] [address] [place] [address] Manager Applied: Sarai Howell MD Troponin, High Sens 27 ng/L High 0-22 [facility] Comment on above: Result Comment: High Sensitivity Troponin values cannot be compared with other Troponin methodologies. Performed By: #### T ROPI, CDP, BMP #### [facility] [address] [place], [place] 5009983 Manager Applied: Sarai Howell MD UA w/Reflex Cultureon 2022 Bilirubin, SemiQt,Ur SMALL Abnormal NEG [facility] Comment on above: Performed By: #### F LUABA #### [facility] [address] [place], [place] 8124083 Manager Applied: Sarai Howell MD Blood, Urine 3+ Abnormal NEG [facility] Comment on above: Performed By: #### F LUABA #### [facility] [address] [place], [place] 0752483 Manager Applied: Sarai Howell MD Clarity (U) Cloudy Abnormal CLEAR [facility] Comment on above: Performed By: #### F LUABA #### [facility] [address] [place], [place] [phone] Manager Applied: Sarai Howell MD Color (U) Yellow Normal YEL [facility] Comment on above: Performed By: #### F LUABA #### [address] [place], [place] [phone] Manager Applied: Sarai Howell MD Glucose Ql (U) Negative Normal [facility] Comment on above: Performed By: #### F LUABA #### [facility] [address] [place], [place] [phone] Manager Applied: Sarai Howell MD Ketones Ql (U) 1+ mg/dL Abnormal NEG [facility] Comment on above: Performed By: #### F LUABA #### [facility] [address] [place], [place] [phone] Manager Applied: Sarai Howell MD Leukocyte esterase Test strip Ql (U) TRACE Abnormal NEG [facility] Comment on above: Performed By: #### F LUABA #### [facility] [address] [place] [address] Manager Applied: Sarai Howell MD Nitrite,Ur Negative Normal NEG [facility] Comment on above: Performed By: #### F LUABA #### [facility] [address] [place], [place] 6942783 Manager Applied: Sarai Howell MD PH,Ur 6.0 Normal 5.0-9.0 [facility] Comment on above: Performed By: #### F LUABA #### [facility] [address] [place], [place] 1111183 Manager Applied: Sarai Howell MD Protein Ql (U) 1+ mg/dL Abnormal NEG [facility] Comment on above: Performed By: #### F LUABA #### [address] [place], [place] [phone] Manager Applied: Sarai Howell MD Spec. [place],Ur >1.030 High 1.010-1.02 0 [facility] Comment on above: Performed By: #### F LUABA #### [address] [place], [place] [phone] Manager Applied: Sarai Howell MD Urobilinogen,Ur Normal Normal 0.0-1.0 [facility] Comment on above: Performed By: #### F LUABA #### [address] [place], [place] 1158483 Manager Applied: Sarai Howell MD Urinalysis,Microon 3 Bacteria 1+ Abnormal NONE [facility] Comment on above: Performed By: #### F LUABA #### [address] [place] [address] Manager Applied: Sarai Howell MD Epithelial cells LM Ql (Urine sed) None Normal 0-5 [facility] Comment on above: Performed By: #### F LUABA #### [facility] [address] [place] [address] [place] [place], [place] [phone] Manager Applied: Sarai Howell MD Mucus Strands TRACE Abnormal NONE [facility] Comment on above: Performed By: #### F LUABA #### [facility] [address] [place], [place] 9997783 Manager Applied: Saari Howell MD Urine RBC's 20 TO 50 Normal 0-2 [facility] Comment on above: Performed By: #### F LUABA #### [facility] [address] [place] [address] Manager Applied: Sarai Howell MD Urine WBC's 2 TO 5 Normal 0-5 [facility] Comment on above: Performed By: #### F LUABA #### [facility] [address] [place] [address] Manager Applied: Sarai Howell MD XR CHEST PORTABLEon 04-25-20 [...] Sarai Henson MD 04/25/23 Final result Normal [facility] BNPon 01-17-2023 Natriuretic peptide B (Bld) [Mass/Vol] 210.0 pg/mL Normal <=900.0 [facility] Comment on above: Performed By: #### B BINDER SORTER, CMADM, CMP ####[facility] [address] [place], [place] [address]Gz. Donna Malone CARDIAC MJ ADMITon 023 CK [Catalytic activity/Vol] 67 U/L Normal 39-308 [facility] Comment on above: Performed By: #### B BINDER SORTER, CMADM, CMP ####[facility] [address] [place] [id number]. Donna Malone CK.MB [Mass/Vol] 2.51 ng/mL Normal <=3.60 [facility] Comment on above: Performed By: #### B BINDER SORTER, CMADM, CMP ####[facility] [address] [place] [address]Dr. Donna Malone HSTROP 9.2 pg/mL Normal 4.0-76.1 [facility] Comment on above: Result Comment: CUT- OFF POINTS HAVE BEEN ESTABLISHED BASED ON THE FOURTH UNIVERSAL DEFINITIONS OF MYOCARDIALINFARCTION. THE UPPER REFERENCE LIMIT (URL) OF TROPONIN, DEFINED THE 99TH PERCENTILE OFcTnI DISTRIBUTION IN A REFERENCE POPULATION, HAS BEEN CONFIRMED THE DECISION THRESHOLDFOR [place] DIAGNOSIS. Performed By: #### B BINDER SORTER, CMADM, CMP ####[facility] [address] [place] [address]Dr. Donna Malone BINDU 68 ng/mL Normal 16-96 [facility] Comment on above: Performed By: #### B BINDER SORTER, CMADM, CMP ####[facility] [address] [place] [address]Dr. Donna Malone CBC AUTO DIFFon 01-17-2023 BASO # 0.1 103/ul Normal 0.0-0.1 [facility] Comment on above: Performed By: #### C BC ####[facility] [address] [place] [address]Dr. Donna Malone Basophils/100 WBC (Bld) 0.8 % Normal 0.2-2.0 [facility] Comment on above: Performed By: #### C BC ####[facility] [address] [place] [address]Dr. Donna Malone EO # 0.1 103/ul Normal 0.0-0.7 [facility] Comment on above: Performed By: #### C BC ####[facility] [address] [place] [address]Dr. Donna Malone Eosinophils/100 WBC (Bld) 1.4 % Normal 0.9-7.0 [facility] Comment on above: Performed By: #### C BC ####[facility] [address] [place], [place] [address]Dr. Donna Malone Erythrocyte distribution width (RBC) [Ratio] 14.6 % Normal 11.0-15.0 [facility] Comment on above: Performed By: #### C BC ####[facility] [address] [place], [place] [address]Dr. Donna Malone Hematocrit (Bld) [Volume fraction] 43.9 % Normal 42.0-54.0 [facility] Comment on above: Performed By: #### C BC ####[facility] [address] [place], [place] [address]Dr. Donna Malone Hemoglobin (Bld) [Mass/Vol] 14.2 g/dL Normal 14.0-18.0 [facility] Comment on above: Performed By: #### C BC ####[facility] [address] [place], [place] [address]Dr. Donna Malone IG # 0.04 10e3/ul Critically high 0.00-0.03 [facility] Comment on above: Performed By: #### C BC ####[facility] [address] [place], [place] [address]Dr. Donna Malone IG % 0.4 % Normal 0.0-0.5 [facility] Comment on above: Performed By: #### C BC ####[facility] [address] [place], [place] [address]Dr. Donna Malone LYMPH # 2.3 103/ul Normal 1.2-3.8 [facility] Comment on above: Performed By: #### C BC ####[facility] [address] [place], [place] [address]Dr. Donna Malone Lymphocytes/100 WBC (Bld) 25.4 % Normal 20.5-60.0 [facility] Comment on above: Performed By: #### C BC ####[facility] [address] [place], [place] [address]Dr. Donna Malone MANUAL DIFF REQ NO Normal [facility] Comment on above: Performed By: #### C BC ####[facility] [address] [place] [address]Dr. Donna Malone MCH (RBC) [Entitic mass] 29.6 pg Normal 25.9-34.0 [facility] Comment on above: Performed By: #### C BC ####[facility] [address] [place] [address]DrElizabeth Malone MCHC (RBC) [Mass/Vol] 32.3 g/dL Normal 29.9-35.2 [facility] Comment on above: Performed By: #### C BC ####[facility] [address] [place], [place] [address]DrElizabeth Malone MCV (RBC) [Entitic vol] 91.5 fL Normal 80.0-94.0 [facility] Comment on above: Performed By: #### C BC ####[facility] [address] [place], [place] [address]DrElizabeth Malone MONO # 0.7 103/ul Normal 0.3-0.8 [facility] Comment on above: Performed By: #### C BC ####[facility] [address] [place], [place] [address]DrElizabeth Malone Monocytes/100 WBC (Bld) 7.5 % Normal 1.7-12.0 [facility] Comment on above: Performed By: #### C BC ####[facility] [address] [place], [place] [address]DrElizabeth Malone NEUT # 5.9 103/ul Normal 1.4-6.5 [facility] Comment on above: Performed By: #### C BC ####[facility] [address] [place], [place] [address]DrElizabeth Malone Neutrophils/100 WBC (Bld) 64.5 % Normal 43.0-75.0 [facility] Comment on above: Performed By: #### C BC ####[facility] [address] [place], [place] [address]DrElizabeth Malone Platelet mean volume (Bld) [Entitic vol] 10.6 fL Normal 9.5-13.5 [facility] Comment on above: Performed By: #### C BC ####[facility] [address] [place] [address]Dr. Donna Malone PLT 296 103/ul Normal 150-450 [facility] Comment on above: Performed By: #### C BC ####[facility] [address] [place] [address]Dr. Donna Malone RBC 4.80 106/ul Normal 4.70-6.10 [facility] Comment on above: Performed By: #### C BC ####[facility] [address] [place] [address]Dr. Donna Malone WBC 9.1 103/ul Normal 4.0-11.0 [facility] Comment on above: Performed By: #### C BC ####[facility] [address] [place] [address]Dr. Donna [address] CT CSPINE WO CONon 3 CT CSPINE WO CON Normal [facility] CT HEAD WO CONon 3 CT HEAD WO CON Normal [facility] CT LSPINE WO CONon 3 CT LSPINE WO CON Normal [facility] PROF 14(COMP METB)on 023 Albumin [Mass/Vol] 3.3 g/dL Critically low 3.4-5.0 [facility] Comment on above: Performed By: #### B BINDER SORTER, CMADM, CMP ####[facility] [address] [place] [address]Dr. Donna Malone Albumin/Globulin [Mass ratio] 0.8 {ratio} Normal [facility] Comment on above: Performed By: #### B BINDER SORTER, CMADM, CMP ####[facility] [address] [place] [address]Dr. Donna Malone ALP [Catalytic activity/Vol] 55 U/L Normal 46-116 [facility] Comment on above: Performed By: #### B BINDER SORTER, CMADM, CMP ####[facility] [address] [place] [address]Dr. Donna Malone ALT [Catalytic activity/Vol] 15 U/L Critically low 16-63 [facility] Comment on above: Performed By: #### B BINDER SORTER, CMADM, CMP ####[facility] [address] [place] [address]Dr. Donna Malone Anion gap [Moles/Vol] 9.6 mmol/L Normal [facility] Comment on above: Performed By: #### B BINDER SORTER, CMADM, CMP ####[facility] [address] [place] [address]Dr. Donna Malone AST [Catalytic activity/Vol] 14 U/L Critically low 15-37 [facility] Comment on above: Performed By: #### B BINDER SORTER, CMADM, CMP ####[facility] [address] [place], [place] [address]Dr. Donna Malone Bilirubin [Mass/Vol] 0.2 mg/dL Normal 0.2-1.0 [facility] Comment on above: Performed By: #### B BINDER SORTER, CMADM, CMP ####[facility] [address] [place] [address]Dr. Donna Malone Calcium [Mass/Vol] 8.6 mg/dL Normal 8.5-10.1 [facility] Comment on above: Performed By: #### B BINDER SORTER, CMADM, CMP ####[facility] [address] [place] [address]Dr. Donna Malone Chloride [Moles/Vol] 107 mmol/L Normal 98-107 [facility] Comment on above: Performed By: #### B BINDER SORTER, CMADM, CMP ####[facility] [address] [place] [address]Dr. Donna Malone CO2 [Moles/Vol] 25.9 mmol/L Normal 21.0-32.0 [facility] Comment on above: Performed By: #### B BINDER SORTER, CMADM, CMP ####[facility] [address] [place] [address]Dr. Donna Malone Creatinine [Mass/Vol] 1.12 mg/dL Normal 0.70-1.30 [facility] Comment on above: Performed By: #### B BINDER SORTER, CMADM, CMP ####[facility] [address] [place] [address]Dr. Donna Malone EGFR-AF SRI LANKAN >60 Normal >=60 [facility] Comment on above: Performed By: #### B BINDER SORTER, CMADM, CMP ####[facility] [address] [place] [address]Dr. Rubylan Malone EGFR-NON AF SRI LANKAN >60 Normal >=60 [facility] Comment on above: Performed By: #### B BINDER SORTER, CMADM, CMP ####[facility] [address] [place] [address]Dr. Donna Malone Globulin (S) [Mass/Vol] 4.2 g/dL Normal [facility] Comment on above: Performed By: #### B BINDER SORTER, CMADM, CMP ####[facility] [address] [place], [place] [address]Dr. Donna Malone Glucose [Mass/Vol] 163 mg/dL Critically high 74-106 [facility] Comment on above: Performed By: #### B BINDER SORTER, CMADM, CMP ####[facility] Owjkkt[address] [place], [place] [address]Dr. Donna Malone Potassium [Moles/Vol] 4.5 mmol/L Normal 3.5-5.1 [facility] Comment on above: Performed By: #### B BINDER SORTER, CMADM, CMP ####[facility] [address]okbq[address]qy[address] [place], [place] [address]Dr. Rubyyvan Malone Protein [Mass/Vol] 7.5 g/dL Normal 6.4-8.2 [facility] Comment on above: Performed By: #### B BINDER SORTER, CMADM, CMP ####[facility] Qyviak[address]ls[address] [place], [place] [address]Dr. Donna Malone Sodium [Moles/Vol] 138 mmol/L Normal 136-145 [facility] Comment on above: Performed By: #### B BINDER SORTER, CMADM, CMP ####[facility] Ckvkfekjwj0[address] [place], [place] [address]Dr. Donna Malone Urea nitrogen [Mass/Vol] 11.0 mg/dL Normal 7.0-18.0 [facility] Comment on above: Performed By: #### B BINDER SORTER, CMADM, CMP ####[facility] [address] [place] [address]Dr. Donna Malone Urea nitrogen/Creatinine [Mass ratio] 9.8 mg/mg Normal [facility] Comment on above: Performed By: #### B BINDER SORTER, CMADM, CMP ####[facility] Modpmofocb[address] [place], [place] [address]Dr. Donna Malone PROTIMEon 01-17-2023 INR Coag (PPP) [Relative time] 0.94 {INR} Normal [facility] Comment on above: Performed By: #### P TT, PT ####[facility] Svygdvzasp[address] [place], [place] [address]Dr. Donna Malone INR GUIDELINES SEE BELOW Normal [facility] Comment on above: Result Comment: FLORESITA RED INR: 2.0 - 3.0 CONDITIONS NOT LISTED BELOW 2.5 - 3.5 FOR PROSTHETIC HEART VALVE REPLACEMENT 2.5 - 3.5 RECURRENT THROMBOSIS Performed By: #### P TT, PT ####[facility] Fvdsgnutwh[address] [place], [place] [address]Dr. Donna Malone PT Coag (PPP) [Time] 10.0 s Normal 9.0-11.6 [facility] Comment on above: Performed By: #### P TT, PT ####[facility] Peunadnomh[address] [place], [place] [address]Dr. Donna Malone PTTon 01-17-2023 aPTT Coag (Bld) [Time] 29.6 s Normal 22.3-36.2 [facility] Comment on above: Performed By: #### P TT, PT ####[facility] Xvextjonyo[address] [place], [place] [address]Dr. Donna Malone CBC AUTO DIFFon 11-17-2022 BASO # 0.0 103/ul Normal 0.0-0.1 [facility] Comment on above: Performed By: #### C BC ####[facility] O[address]ehfqxpo[address] [place], [place] [id number]. Donna Malone Basophils/100 WBC (Bld) 0.2 % Normal 0.2-2.0 [facility] Comment on above: Performed By: #### C BC ####[facility] Twrvxjbarb[address] [place], [place] [id number]. Donna Malone EO # 0.0 103/ul Normal 0.0-0.7 [facility] Comment on above: Performed By: #### C BC ####[facility] Psfcsfscne[address] [place], [place] [address]Dr. Donna Malone Eosinophils/100 WBC (Bld) 0.0 % Critically low 0.9-7.0 [facility] Comment on above: Performed By: #### C BC ####[facility] Vrypvufjwm[address] [place], [place] [address]Dr. Donna Malone Erythrocyte distribution width (RBC) [Ratio] 14.5 % Normal 11.0-15.0 [facility] Comment on above: Performed By: #### C BC ####[facility] Nmexhjucas[address] [place], [place] [address]Dr. Donna Malone Hematocrit (Bld) [Volume fraction] 39.6 % Critically low 42.0-54.0 [facility] Comment on above: Performed By: #### C BC ####[facility] Mynxizjjct[address] [place], [place] [id number]. Donna Malone Hemoglobin (Bld) [Mass/Vol] 13.3 g/dL Critically low 14.0-18.0 [facility] Comment on above: Performed By: #### C BC ####[facility] Qbworcewou[address] [place], [place] [address]Dr. Donna Malone IG # 0.06 10e3/ul Critically high 0.00-0.03 [facility] Comment on above: Performed By: #### C BC ####[facility] B[address]uqvtwjf[address] [place], [place] [address]Dr. Donna Malone IG % 0.5 % Normal 0.0-0.5 [facility] Comment on above: Performed By: #### C BC ####[facility] [address] [place] [id number]. Donna Faisal LYMPH # 1.0 103/ul Critically low 1.2-3.8 [facility] Comment on above: Performed By: #### C BC ####[facility] [address]ougmo[address] [place] [id number]. Donna Faisal Lymphocytes/100 WBC (Bld) 8.3 % Critically low 20.5-60.0 [facility] Comment on above: Performed By: #### C BC ####[facility] Rhez[address]qmvm[address] [place] [id number]. Rubyyvan Malone MANUAL DIFF REQ NO Normal [facility] Comment on above: Performed By: #### C BC ####[facility] Erks[address]wxx[address] [place] [phone]. Donna Faisal MCH (RBC) [Entitic mass] 29.4 pg Normal 25.9-34.0 [facility] Comment on above: Performed By: #### C BC ####[facility] [address]xavjlh[address] [place] [id number]. Donna Malone MCHC (RBC) [Mass/Vol] 33.6 g/dL Normal 29.9-35.2 [facility] Comment on above: Performed By: #### C BC ####[facility] U[address]mbn[address] [place] [phone]. Rubyyvan Faisal MCV (RBC) [Entitic vol] 87.6 fL Normal 80.0-94.0 [facility] Comment on above: Performed By: #### C BC ####[facility] X[address]rsdvb[address] [place] [phone]. Donna Faisal MONO # 0.8 103/ul Normal 0.3-0.8 [facility] Comment on above: Performed By: #### C BC ####[facility] N[address]urp[address] [place] [phone]. Rubyyvan Malone Monocytes/100 WBC (Bld) 6.6 % Normal 1.7-12.0 [facility] Comment on above: Performed By: #### C BC ####[facility] H[address]oyrxbdg[address] [place] [phone]. Donna Malone NEUT # 10.2 103/ul Critically high 1.4-6.5 [facility] Comment on above: Performed By: #### C BC ####[facility] V[address]oyvh[address] [place] [phone]. Donna Malone Neutrophils/100 WBC (Bld) 84.4 % Critically high 43.0-75.0 [facility] Comment on above: Performed By: #### C BC ####[facility] Eeh[address]rzfzqx60[address] [place] [phone]. Donna Malone Platelet mean volume (Bld) [Entitic vol] 11.5 fL Normal 9.5-13.5 [facility] Comment on above: Performed By: #### C BC ####[facility] Uzgq[address]rxlz[address] [place] [phone]. Donna Malone PLT 204 103/ul Normal 150-450 [facility] Comment on above: Performed By: #### C BC ####[facility] Clctsvtyzd[address] [place] [phone]. Donna Malone RBC 4.52 106/ul Critically low 4.70-6.10 [facility] Comment on above: Performed By: #### C BC ####[facility] Dwmclryjih6[address] [place] [phone]. Donna Malone WBC 12.0 103/ul Critically high 4.0-11.0 [facility] Comment on above: Performed By: #### C BC ####[facility] [address]edj[address]uthx[address] [place] [phone]. Donna Malone MAGNESIUMon 11-17-2022 Magnesium [Mass/Vol] 1.9 mg/dL Normal 1.8-2.4 [facility] Comment on above: Performed By: #### C MP, MG ####[facility] Mrphocgjdp65[address] [place] [phone] Rubyyvan Malone PROF 14(COMP METB)on 023 Albumin [Mass/Vol] 3.2 g/dL Critically low 3.4-5.0 [facility] Comment on above: Performed By: #### C MP, MG ####[facility] [address]vzsebehx[address] [place] [phone]. Donna Malone Albumin/Globulin [Mass ratio] 1.0 {ratio} Normal [facility] Comment on above: Performed By: #### C MP, MG ####[facility] Qrbydoxllx33[address] [place] [phone]. Donna Malone ALP [Catalytic activity/Vol] 51 U/L Normal 46-116 [facility] Comment on above: Performed By: #### C MP, MG ####[facility] Oezzbfnqnr5[address] [place] [phone]. Donna Malone ALT [Catalytic activity/Vol] 16 U/L Normal 16-63 [facility] Comment on above: Performed By: #### C MP, MG ####[facility] Zmjsmfwgks6[address] [place] [phone]. Donna Malone Anion gap [Moles/Vol] 14.7 mmol/L Normal [facility] Comment on above: Performed By: #### C MP, MG ####[facility] Krhksfjpje47[address] [place] [phone]. Donna Malone AST [Catalytic activity/Vol] 24 U/L Normal 15-37 [facility] Comment on above: Performed By: #### C MP, MG ####[facility] Mtey[address]eaho[address] [place] [phone]. Donna Malone Bilirubin [Mass/Vol] 0.5 mg/dL Normal 0.2-1.0 [facility] Comment on above: Performed By: #### C MP, MG ####[facility] Mbqkclqxcr4[address] [place] [phone]. Donna Malone Calcium [Mass/Vol] 8.6 mg/dL Normal 8.5-10.1 [facility] Comment on above: Performed By: #### C MP, MG ####[facility] Cxaypsnzxh97[address] [place] [phone]. Donna Malone Chloride [Moles/Vol] 108 mmol/L Critically high 98-107 [facility] Comment on above: Performed By: #### C MP, MG ####[facility] Wyfhcfaokc[address] [place] [address]Dr. Donna Malone CO2 [Moles/Vol] 21.6 mmol/L Normal 21.0-32.0 [facility] Comment on above: Performed By: #### C MP, MG ####[facility] O[address]wnwdytk[address] [place] [address]Dr. Donna Malone Creatinine [Mass/Vol] 0.83 mg/dL Normal 0.70-1.30 [facility] Comment on above: Performed By: #### C MP, MG ####[facility] [address]uvisdr[address] [place] [address]Dr. Donna aMlone EGFR-AF SRI LANKAN >60 Normal >=60 [facility] Comment on above: Performed By: #### C MP, MG ####[facility] Kzxwfddngv[address] [place] [address]Dr. Donna Malone EGFR-NON AF SRI LANKAN >60 Normal >=60 [facility] Comment on above: Performed By: #### C MP, MG ####[facility] Hpbcvofogs9[address] [place] [address]Dr. Donna Malone Globulin (S) [Mass/Vol] 3.2 g/dL Normal [facility] Comment on above: Performed By: #### C MP, MG ####[facility] Gxrbaududz[address] [place] [address]Dr. Donna Malone Glucose [Mass/Vol] 162 mg/dL Critically high 74-106 [facility] Comment on above: Performed By: #### C MP, MG ####[facility] Vevzumgeba[address] [place] [phone]. Donna Malone Potassium [Moles/Vol] 3.3 mmol/L Critically low 3.5-5.1 [facility] Comment on above: Performed By: #### C MP, MG ####[facility] Iiywwpyxpd13[address] [place] [address]Dr. Donna Malone Protein [Mass/Vol] 6.4 g/dL Normal 6.4-8.2 [facility] Comment on above: Performed By: #### C MP, MG ####[facility] L[address]noywjvf[address] [place], [place] [address]Dr. Donna Malone Sodium [Moles/Vol] 141 mmol/L Normal 136-145 [facility] Comment on above: Performed By: #### C MP, MG ####[facility] Hfmuphpoks[address] [place], [place] [address]Dr. Donna Malone Urea nitrogen [Mass/Vol] 12.0 mg/dL Normal 7.0-18.0 [facility] Comment on above: Performed By: #### C MP, MG ####[facility] Pkjaqpkzat60[address] [place], [place] [address]Dr. Donna Malone Urea nitrogen/Creatinine [Mass ratio] 14.5 mg/mg Normal [facility] Comment on above: Performed By: #### C MP, MG ####[facility] Kswdyfkmxm[address] [place], [place] [address]Dr. Donna Malone AMMONIAon 11-16-2022 Ammonia (P) [Mass/Vol] ug/dL Critically low 11-32 [facility] Comment on above: Performed By: #### A MM ####[facility] Uwiguznruj2[address] [place], [place] [address]Dr. Donna Malone CBC AUTO DIFFon 11-16-2022 BASO # 0.0 103/ul Normal 0.0-0.1 [facility] Comment on above: Performed By: #### C BC ####[facility] Lximviegjw68[address] [place], [place] [address]Dr. Donna Malone Basophils/100 WBC (Bld) 0.2 % Normal 0.2-2.0 [facility] Comment on above: Performed By: #### C BC ####[facility] Ezzwqobgfa06[address] [place], [place] [address]Dr. Donna Malone EO # 0.0 103/ul Normal 0.0-0.7 [facility] Comment on above: Performed By: #### C BC ####[facility] Dnnetozzym20[address] [place], [place] [address]Dr. Donna Malone Eosinophils/100 WBC (Bld) 0.0 % Critically low 0.9-7.0 [facility] Comment on above: Performed By: #### C BC ####[facility] Psjknrdhjw32[address] [place] [address]Dr. Donna Malone Erythrocyte distribution width (RBC) [Ratio] 14.4 % Normal 11.0-15.0 [facility] Comment on above: Performed By: #### C BC ####[facility] Xgzlqcdkkk15[address] [place], [place] [address]Dr. Donna Malone Hematocrit (Bld) [Volume fraction] 38.6 % Critically low 42.0-54.0 [facility] Comment on above: Performed By: #### C BC ####[facility] Ctyidjcdhy[address] [place], [place] [address]Dr. Donna Malone Hemoglobin (Bld) [Mass/Vol] 13.1 g/dL Critically low 14.0-18.0 [facility] Comment on above: Performed By: #### C BC ####[facility] Unnqtpinqp8[address] [place], [place] [address]Dr. Donna Malone IG # 0.05 10e3/ul Critically high 0.00-0.03 [facility] Comment on above: Performed By: #### C BC ####[facility] Xhcimallix[address] [place], [place] [address]Dr. Donna Malone IG % 0.5 % Normal 0.0-0.5 [facility] Comment on above: Performed By: #### C BC ####[facility] Pccdcwpzpd[address] [place], [place] [address]Dr. Donna Malone LYMPH # 1.0 103/ul Critically low 1.2-3.8 [facility] Comment on above: Performed By: #### C BC ####[facility] Yjbcgmxswp18[address] [place], [place] [address]Dr. Donna Malone Lymphocytes/100 WBC (Bld) 10.8 % Critically low 20.5-60.0 [facility] Comment on above: Performed By: #### C BC ####[facility] Bwuawxftus[address] [place] [address]Dr. Donna Faisal MANUAL DIFF REQ NO Normal [facility] Comment on above: Performed By: #### C BC ####[facility] Ubqrsljepr65[address] [place] [address]Dr. Donna Malone MCH (RBC) [Entitic mass] 29.4 pg Normal 25.9-34.0 [facility] Comment on above: Performed By: #### C BC ####[facility] Jjzujtqhoq24[address] [place], [place] [address]Dr. Donna Faisal MCHC (RBC) [Mass/Vol] 33.9 g/dL Normal 29.9-35.2 [facility] Comment on above: Performed By: #### C BC ####[facility] Agtnnxftza9177[address] [place], [place] [address]Dr. Donna Faisal MCV (RBC) [Entitic vol] 86.7 fL Normal 80.0-94.0 [facility] Comment on above: Performed By: #### C BC ####[facility] Pxamtnaupz6[address] [place], [place] [address]Dr. Donna Faisal MONO # 0.4 103/ul Normal 0.3-0.8 [facility] Comment on above: Performed By: #### C BC ####[facility] Ebzyknispa[address] [place], [place] [address]Dr. Donna Malone Monocytes/100 WBC (Bld) 4.4 % Normal 1.7-12.0 [facility] Comment on above: Performed By: #### C BC ####[facility] Kvbgsppwst64[address] [place], [place] [address]Dr. Rubyyvan Faisal NEUT # 7.9 103/ul Critically high 1.4-6.5 [facility] Comment on above: Performed By: #### C BC ####[facility] Thifhjgliw[address] [place], [place] [address]Dr. Donna Malone Neutrophils/100 WBC (Bld) 84.1 % Critically high 43.0-75.0 [facility] Comment on above: Performed By: #### C BC ####[facility] J[address]xbblhdx23[address] [place] [address]Dr. Donna Malone Platelet mean volume (Bld) [Entitic vol] 11.3 fL Normal 9.5-13.5 [facility] Comment on above: Performed By: #### C BC ####[facility] Xixkbotzpj36[address] [place] [address]Dr. Donna Malone PLT 201 103/ul Normal 150-450 [facility] Comment on above: Performed By: #### C BC ####[facility] Nqhagxoxfi1544 [place] [address]Dr. Donna Malone RBC 4.45 106/ul Critically low 4.70-6.10 [facility] Comment on above: Performed By: #### C BC ####[facility] Zsezmxqtra7[address] [place], [place] [address]Dr. Donna Malone WBC 9.3 103/ul Normal 4.0-11.0 [facility] Comment on above: Performed By: #### C BC ####[facility] Dmxaunhphw[address] [place], [place] [address]Dr. Donna Malone GLYCOHEMOGLOBIN A1Con 2022 ADA RECOMMENDATION SEE BELOW Normal [facility] Comment on above: Result Comment: ADA RECOMMENDED LIMIT 4.0 - 6.0 ADA THERAPEUTIC TARGET < 7.0 ACTION SUGGESTED > 7.0 Performed By: #### A 1C ####[facility] Qmrsfefwrz04[address] [place] [address]Dr. Donna Malone Glucose [Mass/Vol] 128 mg/dL Normal [facility] Comment on above: Performed By: #### A 1C ####[facility] Zgoenivnjj5[address] [place] [address]Dr. Donna Malone HbA1c (Bld) [Mass fraction] 6.1 % Normal 4.5-6.2 [facility] Comment on above: Performed By: #### A 1C ####[facility] Vseivvdaak[address] [place], [place] [address]Dr. Donna Malone MAGNESIUMon 11-16-2022 Magnesium [Mass/Vol] 1.8 mg/dL Normal 1.8-2.4 [facility] Comment on above: Performed By: #### C MP, MG ####[facility] Vmzogsbpzf77[address] [place] [address]Dr. Donna Malone POINT OF CARE GLUCOSEon 11-07 Glucose [Mass/Vol] 170 mg/dL Critically high 74-106 [facility] Comment on above: Performed By: #### P OCGLUC ####[facility] Iqmrtcqejx99[address] [place] [address]Dr. Donna Malone Glucose [Mass/Vol] 158 mg/dL Critically high 74-106 [facility] Comment on above: Performed By: #### P OCGLUC ####[facility] Jwhnodrrxi0816 [place] [address]Dr. Donna Malone Glucose [Mass/Vol] 176 mg/dL Critically high -106 [facility] Comment on above: Performed By: #### P OCGLUC ####[facility] Wtjiccdaka11[address] [place] [address]Dr. Donna Malone PROF 14(COMP METB)on 023 Albumin [Mass/Vol] 3.1 g/dL Critically low 3.4-5.0 [facility] Comment on above: Performed By: #### C MP, MG ####[facility] Uikhjdyruy[address] [place], [place] [address]Dr. Donna Malone Albumin/Globulin [Mass ratio] 0.9 {ratio} Normal [facility] Comment on above: Performed By: #### C MP, MG ####[facility] Jnlojwxulk8[address] [place] [address]Dr. Donna Malone ALP [Catalytic activity/Vol] 52 U/L Normal 46-116 [facility] Comment on above: Performed By: #### C MP, MG ####[facility] Plbgftttvb6616 [place] [address]Dr. Donna Malone ALT [Catalytic activity/Vol] 13 U/L Critically low 16-63 [facility] Comment on above: Performed By: #### C MP, MG ####[facility] Vvzultillp86[address] [place] [address]Dr. Donna Malone Anion gap [Moles/Vol] 15.7 mmol/L Normal [facility] Comment on above: Performed By: #### C MP, MG ####[facility] Thneofsfsc[address] [place], [place] [address]Dr. Donna Malone AST [Catalytic activity/Vol] 16 U/L Normal 15-37 [facility] Comment on above: Performed By: #### C MP, MG ####[facility] Hodqgwjkxd55[address] [place], [place] [address]Dr. Donna Faisal Bilirubin [Mass/Vol] 0.5 mg/dL Normal 0.2-1.0 [facility] Comment on above: Performed By: #### C MP, MG ####[facility] Dsrcllcosm5064[address] [place], [place] [address]Dr. Donna Malone Calcium [Mass/Vol] 8.6 mg/dL Normal 8.5-10.1 [facility] Comment on above: Performed By: #### C MP, MG ####[facility] Wjtxrezvcq696[address] [place], [place] [address]Dr. Donna Faisal Chloride [Moles/Vol] 109 mmol/L Critically high 98-107 [facility] Comment on above: Performed By: #### C MP, MG ####[facility] Dveygvxlqg0087[address] [place], [place] [address]Dr. Donna Malone CO2 [Moles/Vol] 21.7 mmol/L Normal 21.0-32.0 [facility] Comment on above: Performed By: #### C MP, MG ####[facility] Nblugsogib59[address] [place], [place] [address]Dr. Donna Faisal Creatinine [Mass/Vol] 0.99 mg/dL Normal 0.70-1.30 [facility] Comment on above: Performed By: #### C MP, MG ####[facility] Oswkkmfffb9625[address] [place], [place] [address]Dr. Rubyyvan Faisal EGFR-AF SRI LANKAN >60 Normal >=60 [facility] Comment on above: Performed By: #### C MP, MG ####[facility] Hbkvcktdkg1097[address] [place], [place] [address]Dr. Donna Malone EGFR-NON AF SRI LANKAN >60 Normal >=60 [facility] Comment on above: Performed By: #### C MP, MG ####[facility] Kblrsxyyha3534 [place] [address]Dr. Donna Malone Globulin (S) [Mass/Vol] 3.3 g/dL Normal [facility] Comment on above: Performed By: #### C MP, MG ####[facility] Bsfozoannl5316 [place] [address]Dr. Donna Malone Glucose [Mass/Vol] 168 mg/dL Critically high 74-106 [facility] Comment on above: Performed By: #### C MP, MG ####[facility] Ylligeolkl9492 [place] [address]Dr. Donna Malone Potassium [Moles/Vol] 3.4 mmol/L Critically low 3.5-5.1 [facility] Comment on above: Performed By: #### C MP, MG ####[facility] Vxogtyqzuc7[address] [place], [place] [address]Dr. Donna Malone Protein [Mass/Vol] 6.4 g/dL Normal 6.4-8.2 [facility] Comment on above: Performed By: #### C MP, MG ####[facility] Zoblabegqw28[address] [place], [place] [address]Dr. Donna Malone Sodium [Moles/Vol] 143 mmol/L Normal 136-145 [facility] Comment on above: Performed By: #### C MP, MG ####[facility] Njmbrhbeth9[address] [place], [place] [address]Dr. Donna Malone Urea nitrogen [Mass/Vol] 9.0 mg/dL Normal 7.0-18.0 [facility] Comment on above: Performed By: #### C MP, MG ####[facility] Ccijgkgadm2654[address] [place], [place] [address]Dr. Donna Malone Urea nitrogen/Creatinine [Mass ratio] 9.1 mg/mg Normal [facility] Comment on above: Performed By: #### C MP, MG ####[facility] Ahisojlcna24[address] [place], [place] [address]Dr. Donna Malone XR CHEST 2 Von 11-16-2022 XR CHEST 2 V Normal [facility] AMMONIAon 11-15-2022 Ammonia (P) [Moles/Vol] 20 umol/L Normal 11-32 [facility] Comment on above: Performed By: #### A MM ####[facility] Niiewtbvxs6306 [place] [address]Dr. Donna Malone CBC AUTO DIFFon 11-15-2022 BASO # 0.0 103/ul Normal 0.0-0.1 [facility] Comment on above: Performed By: #### C BC ####[facility] Kitzzwotwy2700 [place] [address]DrElizabeth Donna Faisal Basophils/100 WBC (Bld) 0.5 % Normal 0.2-2.0 [facility] Comment on above: Performed By: #### C BC ####[facility] Ugypalbsnl6893[address] [place], [place] [address]Dr. Donna Faisal EO # 0.1 103/ul Normal 0.0-0.7 [facility] Comment on above: Performed By: #### C BC ####[facility] Oqdgjkpizu10[address] [place], [place] [address]DrEliazbeth Donna Faisal Eosinophils/100 WBC (Bld) 1.4 % Normal 0.9-7.0 [facility] Comment on above: Performed By: #### C BC ####[facility] Hntimqxyfd4[address] [place], [place] [address]DrElizabeth Donna Faisal Erythrocyte distribution width (RBC) [Ratio] 14.6 % Normal 11.0-15.0 [facility] Comment on above: Performed By: #### C BC ####[facility] Lphquzuqsk1392[address] [place], [place] [address]DrElizabeth Donna Faisal Hematocrit (Bld) [Volume fraction] 36.8 % Critically low 42.0-54.0 [facility] Comment on above: Performed By: #### C BC ####[facility] Zaqhxwrwzx[address] [place], [place] [address]DrElizabeth Donna Faisal Hemoglobin (Bld) [Mass/Vol] 12.1 g/dL Critically low 14.0-18.0 [facility] Comment on above: Performed By: #### C BC ####[facility] Szzckykkzj4294 [place] [address]Dr. Donna Malone IG # 0.01 10e3/ul Normal 0.00-0.03 [facility] Comment on above: Performed By: #### C BC ####[facility] Lhajhfixqw7625 [place] [address]Dr. Donna Malone IG % 0.2 % Normal 0.0-0.5 [facility] Comment on above: Performed By: #### C BC ####[facility] Hzjqyjgfco6[address] [place], [place] [address]Dr. Donna Malone LYMPH # 1.7 103/ul Normal 1.2-3.8 [facility] Comment on above: Performed By: #### C BC ####[facility] Qzshiyoezv[address] [place], [place] [address]Dr. Donna Malone Lymphocytes/100 WBC (Bld) 27.0 % Normal 20.5-60.0 [facility] Comment on above: Performed By: #### C BC ####[facility] Thoayjxxlw96[address] [place], [place] [address]Dr. Donna Malone MANUAL DIFF REQ NO Normal [facility] Comment on above: Performed By: #### C BC ####[facility] Qzowlduhze786[address] [place], [place] [address]Dr. Donna Malone MCH (RBC) [Entitic mass] 29.5 pg Normal 25.9-34.0 [facility] Comment on above: Performed By: #### C BC ####[facility] Zcpdksldru15[address] [place], [place] [address]Dr. Donna Malone MCHC (RBC) [Mass/Vol] 32.9 g/dL Normal 29.9-35.2 [facility] Comment on above: Performed By: #### C BC ####[facility] Fvopebaytx17[address] [place], [place] [address]Dr. Donna Malone MCV (RBC) [Entitic vol] 89.8 fL Normal 80.0-94.0 [facility] Comment on above: Performed By: #### C BC ####[facility] Oowsggkxbu95[address] [place] [id number]. Donna Malone MONO # 0.4 103/ul Normal 0.3-0.8 [facility] Comment on above: Performed By: #### C BC ####[facility] Dtkjmigjac7446 [place] [id number]. Donna Malone Monocytes/100 WBC (Bld) 6.7 % Normal 1.7-12.0 [facility] Comment on above: Performed By: #### C BC ####[facility] [address] [place] [id number]. Donna Malone NEUT # 4.0 103/ul Normal 1.4-6.5 [facility] Comment on above: Performed By: #### C BC ####[facility] M[address]xkrl[address] [place], [place] [address]Dr. Donna Malone Neutrophils/100 WBC (Bld) 64.2 % Normal 43.0-75.0 [facility] Comment on above: Performed By: #### C BC ####[facility] Fmuvmagvgt[address] [place], [place] [id number]. Donna Malone Platelet mean volume (Bld) [Entitic vol] 11.3 fL Normal 9.5-13.5 [facility] Comment on above: Performed By: #### C BC ####[facility] W[address]em[address]bna[address] [id number]. Donna Malone PLT 169 103/ul Normal 150-450 [facility] Comment on above: Performed By: #### C BC ####[facility] Uepiam[address]zkt[address] [place] [id number]. Donna Malone RBC 4.10 106/ul Critically low 4.70-6.10 [facility] Comment on above: Performed By: #### C BC ####[facility] Jlxugovrcb[address] [id number]. Donna Malone WBC 6.3 103/ul Normal 4.0-11.0 [facility] Comment on above: Performed By: #### C BC ####[facility] It[address]xonusd[address] [address]Dr. Donna Malone GLYCOHEMOGLOBIN A1Con 2022 ADA RECOMMENDATION SEE BELOW Normal [facility] Comment on above: Result Comment: ADA RECOMMENDED LIMIT 4.0 - 6.0 ADA THERAPEUTIC TARGET < 7.0 ACTION SUGGESTED > 7.0 Performed By: #### A 1C ####[facility] Sabzcv[address]rw[address] [place], [place] [address]Dr. Donna Malone Glucose [Mass/Vol] 128 mg/dL Normal [facility] Comment on above: Performed By: #### A 1C ####[facility] Pdbjqiyzou[address] [place], [place] [address]Dr. Donna Malone HbA1c (Bld) [Mass fraction] 6.1 % Normal 4.5-6.2 [facility] Comment on above: Performed By: #### A 1C ####[facility] Lodadzueuq[address] [place], [place] [address]Dr. Donna Malone MAGNESIUMon 11-15-2022 Magnesium [Mass/Vol] 1.6 mg/dL Critically low 1.8-2.4 [facility] Comment on above: Performed By: #### C MP, MG ####[facility] Weizxfxeln[address] [place], [place] [address]Dr. Donna Malone POINT OF CARE GLUCOSEon Glucose [Mass/Vol] 165 mg/dL Critically high 74-106 [facility] Comment on above: Performed By: #### P OCGLUC ####[facility] Paxaxjvnvo[address] [place], [place] [address]Dr. Donna Malone Glucose [Mass/Vol] 155 mg/dL Critically high 74-106 [facility] Comment on above: Performed By: #### P OCGLUC ####[facility] V[address]zlxdwcf[address] [place], [place] [address]Dr. Donna Malone Glucose [Mass/Vol] 111 mg/dL Critically high 74-106 [facility] Comment on above: Performed By: #### P OCGLUC ####[facility] Zqkybhilfs[address] [place], [place] [address]Dr. Donna Malone PROF 14(COMP METB)on 023 Albumin [Mass/Vol] 2.9 g/dL Critically low 3.4-5.0 [facility] Comment on above: Performed By: #### C MP, MG ####[facility] F[address]cryfwcc[address] [place] [address]Dr. Donna Malone Albumin/Globulin [Mass ratio] 1.0 {ratio} Normal [facility] Comment on above: Performed By: #### C MP, MG ####[facility] Lojvodkrdo[address] [address]Dr. Donna Malone ALP [Catalytic activity/Vol] 38 U/L Critically low 46-116 [facility] Comment on above: Performed By: #### C MP, MG ####[facility] Cbthdzpckn36[address] [address]Dr. Donna Malone ALT [Catalytic activity/Vol] 13 U/L Critically low 16-63 [facility] Comment on above: Performed By: #### C MP, MG ####[facility] Ubwwwshgwb[address] [place] [address]Dr. Donna Malone Anion gap [Moles/Vol] 11.8 mmol/L Normal [facility] Comment on above: Performed By: #### C MP, MG ####[facility] Abjmgohmsx[address] [address]Dr. Donna Malone AST [Catalytic activity/Vol] 15 U/L Normal 15-37 [facility] Comment on above: Performed By: #### C MP, MG ####[facility] Sdozctmlxd[address] [place] [address]Dr. Donna Malone Bilirubin [Mass/Vol] 0.4 mg/dL Normal 0.2-1.0 [facility] Comment on above: Performed By: #### C MP, MG ####[facility] Fgarynumnh[address] [address]Dr. Donna Malone Calcium [Mass/Vol] 8.2 mg/dL Critically low 8.5-10.1 [facility] Comment on above: Performed By: #### C MP, MG ####[facility] Rpyenccouy[address] [place] [address]Dr. Donna Malone Chloride [Moles/Vol] 111 mmol/L Critically high 98-107 [facility] Comment on above: Performed By: #### C MP, MG ####[facility] Mqomytxqtm[address] [place] [address]Dr. Donna Malone CO2 [Moles/Vol] 27.9 mmol/L Normal 21.0-32.0 [facility] Comment on above: Performed By: #### C MP, MG ####[facility] Qvgqrqwpid87[address] [place] [address]Dr. Donna Malone Creatinine [Mass/Vol] 0.99 mg/dL Normal 0.70-1.30 [facility] Comment on above: Performed By: #### C MP, MG ####[facility] Imjugavgeh[address] [place], [place] [address]Dr. Donna Malone EGFR-AF SRI LANKAN >60 Normal >=60 [facility] Comment on above: Performed By: #### C MP, MG ####[facility] Hspicljbbi[address] [place], [place] [address]Dr. Donna Malone EGFR-NON AF SRI LANKAN >60 Normal >=60 [facility] Comment on above: Performed By: #### C MP, MG ####[facility] Ggtlkvglam[address] [place], [place] [address]Dr. Donna Malone Globulin (S) [Mass/Vol] 2.9 g/dL Normal [facility] Comment on above: Performed By: #### C MP, MG ####[facility] Ovpkztpmfn7[address] [place], [place] [address]Dr. Donna Malone Glucose [Mass/Vol] 88 mg/dL Normal 74-106 [facility] Comment on above: Performed By: #### C MP, MG ####[facility] Cfgdurgogf[address] [place] [address]Dr. Donna Malone Potassium [Moles/Vol] 3.7 mmol/L Normal 3.5-5.1 [facility] Comment on above: Performed By: #### C MP, MG ####[facility] Obncjdjnzq[address] [place] [address]Dr. Donna Malone Protein [Mass/Vol] 5.8 g/dL Critically low 6.4-8.2 [facility] Comment on above: Performed By: #### C MP, MG ####[facility] Eiqvywvjop[address] [place] [address]Dr. Donna Malone Sodium [Moles/Vol] 147 mmol/L Critically high 136-145 [facility] Comment on above: Performed By: #### C MP, MG ####[facility] Yzicyvdjpc[address] [place], [place] [address]Dr. Donna Malone Urea nitrogen [Mass/Vol] 12.0 mg/dL Normal 7.0-18.0 [facility] Comment on above: Performed By: #### C MP, MG ####[facility] Sxrthugifk[address] [place], [place] [address]Dr. Rubyyvan Malone Urea nitrogen/Creatinine [Mass ratio] 12.1 mg/mg Normal [facility] Comment on above: Performed By: #### C MP, MG ####[facility] Hpazgpgboj88[address] [place], [place] [address]Dr. Donna Malone ACETONE SERUMon 11-14-2022 ACETONE Negative Normal NEGATIVE [facility] Comment on above: Performed By: #### A CETON ####[facility] Temkxhudtz7[address] [place], [place] [address]Dr. Rubyyvan Malone AMMONIAon 11-14-2022 Ammonia (P) [Moles/Vol] 17 umol/L Normal 11-32 [facility] Comment on above: Performed By: #### A MM ####[facility] Udrbgrkvbm50[address] [place], [place] [address]Dr. Rubyyvan Malone BLOOD GASES BTYon 11-14-2022 02 MODE ROOM AIR Normal [facility] Comment on above: Performed By: #### A BG ####[facility] Oqatfyfbxr19[address] [place], [place] [address]Dr. Donna Malone ALLENS TEST Positive Normal [facility] Comment on above: Performed By: #### A BG ####[facility] Iscydpawhg[address] [place] [address]Dr. Donna Malone Base excess Calc (Bld) [Moles/Vol] 1.1 mmol/L Normal -2.0-2.0 [facility] Comment on above: Performed By: #### A BG ####[facility] Pejhfiacti[address] [place] [address]Dr. Donna Malone BIPAP PRESSURE Normal [facility] Comment on above: Performed By: #### A BG ####[facility] Upfkykacin[address] [place], [place] [address]Dr. Donna Malone CPAP Normal [facility] Comment on above: Performed By: #### A BG ####[facility] Ucpzozzfuf9[address] [place], [place] [address]Dr. Donna Malone FIO2 Normal [facility] Comment on above: Performed By: #### A BG ####[facility] Uapajzgwma5[address] [place], [place] [address]Dr. Donna Malone HCO3 (Bld) [Moles/Vol] 26.0 mmol/L Normal 22.0-26.0 [facility] Comment on above: Performed By: #### A BG ####[facility] Syzlxfihmz75[address] [place], [place] [address]Dr. Donna Malone LPM [facility] Comment on above: Performed By: #### A BG ####[facility] Qcjboplvwv32[address] [place], [place] [address]Dr. Donna Malone MINUTE VOLUME Normal [facility] Comment on above: Performed By: #### A BG ####[facility] Ypuobacevc[address] [place], [place] [address]Dr. Donna Malone Oxygen (Bld) [Partial pressure] 62.0 mm[Hg] Critically low 80.0-100.0 [facility] Comment on above: Performed By: #### A BG ####[facility] Ntrztdtlqk7[address] [place], [place] [address]Dr. Donna Malone Oxygen saturation in Blood 91.9 % Critically low 95.0-100.0 [facility] Comment on above: Performed By: #### A BG ####[facility] V[address]vxqlep[address] [place] [address]Dr. Donna Malone PCO2 42.8 mmHg Normal 35.0-45.0 [facility] Comment on above: Performed By: #### A BG ####[facility] Ycftfwjsmr36[address] [place] [address]Dr. Donna Malone PEEP [facility] Comment on above: Performed By: #### A BG ####[facility] Ujrpxdkkhd[address] [place], [place] [address]Dr. Donna Malone pH (Bld) 7.392 [pH] Normal 7.350-7.45 0 [facility] Comment on above: Performed By: #### A BG ####[facility] Rkmqffuiyd[address] [place], [place] [address]Dr. Donna Malone PIP [facility] Comment on above: Performed By: #### A BG ####[facility] Ovwthowuly[address] [place], [place] [address]Dr. Donna Malone PS [facility] Comment on above: Performed By: #### A BG ####[facility] Vclrumirfu[address] [place], [place] [address]Dr. Donna Malone PUNCTURE SITE LR [facility] Comment on above: Performed By: #### A BG ####[facility] Dfndhmeacp[address] [place], [place] [address]Dr. Donna Malone RATE [facility] Comment on above: Performed By: #### A BG ####[facility] Srntfqzehz7[address] [place], [place] [address]Dr. Donna Malone VENT MODE [facility] Comment on above: Performed By: #### A BG ####[facility] Berbrcqnwq[address] [place], [place] [address]Dr. Donna Malone VT [facility] Comment on above: Performed By: #### A BG ####[facility] Aphxaxdlhq[address]42[address] [place], [place] [address]Dr. Donna Malone BNPon 11-14-2022 Natriuretic peptide B (Bld) [Mass/Vol] 148.0 pg/mL Normal <=900.0 [facility] Comment on above: Performed By: #### B BINDER SORTER, CMP, HSTROPN ####[facility] A[address]bunim[address] [place] [address]Dr. Donna Malone CBC AUTO DIFFon 11-14-2022 BASO # 0.0 103/ul Normal 0.0-0.1 [facility] Comment on above: Performed By: #### C BC ####[facility] Mywmzfmbdr[address] [place], [place] [address]Dr. Rubyyvan Malone Basophils/100 WBC (Bld) 0.5 % Normal 0.2-2.0 [facility] Comment on above: Performed By: #### C BC ####[facility] Nqebwiixdf15[address] [place], [place] [address]Dr. Donna Malone EO # 0.1 103/ul Normal 0.0-0.7 [facility] Comment on above: Performed By: #### C BC ####[facility] Xvcyovvuqq75[address] [place], [place] [address]Dr. Rubyyvan Malone Eosinophils/100 WBC (Bld) 0.6 % Critically low 0.9-7.0 [facility] Comment on above: Performed By: #### C BC ####[facility] Ndnajfyhym6[address] [place], [place] [address]Dr. Donna Malone Erythrocyte distribution width (RBC) [Ratio] 14.8 % Normal 11.0-15.0 [facility] Comment on above: Performed By: #### C BC ####[facility] Bbubowpiqe0[address] [place], [place] [address]Dr. Donna Malone Hematocrit (Bld) [Volume fraction] 41.9 % Critically low 42.0-54.0 [facility] Comment on above: Performed By: #### C BC ####[facility] Vmqdkvrhhc[address] [place], [place] [address]Dr. Donna Malone Hemoglobin (Bld) [Mass/Vol] 13.6 g/dL Critically low 14.0-18.0 [facility] Comment on above: Performed By: #### C BC ####[facility] Trriowuoaa[address] [place] [address]Dr. Donna Malone IG # 0.01 10e3/ul Normal 0.00-0.03 [facility] Comment on above: Performed By: #### C BC ####[facility] Zmrcbyqyev[address] [place] [address]Dr. Donna Faisal IG % 0.1 % Normal 0.0-0.5 [facility] Comment on above: Performed By: #### C BC ####[facility] Uqtgytduuo[address] [place] [address]Dr. Donna Faisal LYMPH # 1.7 103/ul Normal 1.2-3.8 [facility] Comment on above: Performed By: #### C BC ####[facility] Dzwybwgclu3[address] [place] [address]Dr. Donna Malone Lymphocytes/100 WBC (Bld) 21.2 % Normal 20.5-60.0 [facility] Comment on above: Performed By: #### C BC ####[facility] Pyhysynezq60[address] [place] [address]Dr. Rubyyvan Malone MANUAL DIFF REQ NO Normal [facility] Comment on above: Performed By: #### C BC ####[facility] Wncimudjes[address] [place] [address]Dr. Donna Malone MCH (RBC) [Entitic mass] 29.2 pg Normal 25.9-34.0 [facility] Comment on above: Performed By: #### C BC ####[facility] Synmuieett[address] [place] [address]Dr. Donna Faisal MCHC (RBC) [Mass/Vol] 32.5 g/dL Normal 29.9-35.2 [facility] Comment on above: Performed By: #### C BC ####[facility] Aqalrzkise[address] [place], [place] [address]Dr. Donna Faisal MCV (RBC) [Entitic vol] 90.1 fL Normal 80.0-94.0 [facility] Comment on above: Performed By: #### C BC ####[facility] Snthqgqefk[address] [place], [place] [id number]. Donna Malone MONO # 0.4 103/ul Normal 0.3-0.8 [facility] Comment on above: Performed By: #### C BC ####[facility] Dwmpayaqqw9[address] [place] [address]Dr. Donna Malone Monocytes/100 WBC (Bld) 5.5 % Normal 1.7-12.0 [facility] Comment on above: Performed By: #### C BC ####[facility] Lpfbkinovz[address] [place] [address]Dr. Donna Malone NEUT # 5.7 103/ul Normal 1.4-6.5 [facility] Comment on above: Performed By: #### C BC ####[facility] Fguivlwzqu39[address] [place] [address]Dr. Donna Malone Neutrophils/100 WBC (Bld) 72.1 % Normal 43.0-75.0 [facility] Comment on above: Performed By: #### C BC ####[facility] Slravcbtlj[address] [place], [place] [address]Dr. Donna Malone Platelet mean volume (Bld) [Entitic vol] 11.5 fL Normal 9.5-13.5 [facility] Comment on above: Performed By: #### C BC ####[facility] Qomofvpszz94[address] [place] [address]Dr. Donna Malone PLT 193 103/ul Normal 150-450 [facility] Comment on above: Performed By: #### C BC ####[facility] Pjghttufgv[address] [place], [place] [address]Dr. Donna Malone RBC 4.65 106/ul Critically low 4.70-6.10 [facility] Comment on above: Performed By: #### C BC ####[facility] Aqesyoguwm[address] [place], [place] [address]Dr. Donna Malone WBC 7.9 103/ul Normal 4.0-11.0 [facility] Comment on above: Performed By: #### C BC ####[facility] Gqccxgcacz[address] [place] [address]. Donna Malone CT HEAD WO CONon 03-08-2023 CT HEAD WO CON Normal [facility] CULTURE BLOODon 11-14-2022 Microscopic examination of blood, culture Culture Observations: NO GROWTH AT 5 DAYS. Normal [facility] Comment on above: Performed By: #### B LDCX2 ####[facility] Kimotxuzbs[address] [place] [id number]. Donna Malone Microscopic examination of blood, culture Culture Observations: NO GROWTH AT 5 DAYS. Normal [facility] Comment on above: Performed By: #### B LDCX1 ####[facility] [address]rrbk[address] [place] [id number]. Donna Malone Covid-19 PCR (CVDTBH)on SARS-CoV-2 (COVID-19) RNA JOSÉ MIGUEL+probe Ql (Unsp spec) Not detected Normal NOT DETECTED [facility] Comment on above: Result Comment: When diagnostic [...] for this test is supported by the [place] of Health and Human Service's declaration that [...] be used). Performed By: #### C VDTBH ####[facility] Cbzkrioghc[address] [place] [id number]. Donna Malone DRUG SCREEN RAPID (URINE)on 11-14-2022 AMP Negative Normal NEGATIVE [facility] Comment on above: Performed By: #### D RUGRPD, ERUR ####[facility] Lxuvnqhfdx[address] [place] [id number]. Donna Malone BAR Negative Normal NEGATIVE [facility] Comment on above: Performed By: #### D RUGRAAD, ERUR ####[facility] Yhreedyipi030[address] [place] [address]Dr. Donna Malone BUP Negative Normal NEGATIVE [facility] Comment on above: Performed By: #### D RUGRPD, ERUR ####[facility] Givueyrzze[address] [place] [id number]. Donna Malone BZO Negative Normal NEGATIVE [facility] Comment on above: Performed By: #### D KAMRYND, ERUR ####[facility] Umtwtgadcf[address] [place], [place] [address]Dr. Donna Malone EVONNE Negative Normal NEGATIVE [facility] Comment on above: Performed By: #### D KAMRYND, ERUR ####[facility] Cewprgpezp[address] [place], [place] [address]Dr. Donna Malone CUT-OFFS SEE BELOW Normal [facility] Comment on above: Result Comment: AMP (Amphetamine): 500ng/mL, BAR (Barbituates): 200 ng/mL, BZO (Benzodiazepines): 150 ng/mL, BUP (Buprenorphine): 10 ng/mL, EVONNE (Cocaine): 150 ng/mL, mAMP (Methamphetamine): 500 ng/mL, MTD (Methadone): 200 ng/mL, OPI (Opiates): 100 ng/mL, OXY (Oxycodone): 100 ng/mL, PCP (Phencyclidine): 25 ng/mL, PPX (Propoxyphene): 300 ng/mL, THC (Cannabinoids): 50 ng/mL, TCA (Trycyclic Antidepressants): 300 ng/mL Performed By: #### D KAMRYND, ERUR ####[facility] Mgxutmewvj[address] [place], [place] [address]Dr. Donna Malone DRUG CUT HEADER DRUG CLASS TEST SYST EM CUT-OFF CONCENTRATIONS ARE FOLLOWS: Normal [facility] Comment on above: Performed By: #### D SHARONA, ERUR ####[facility] Gcxysclqgy7[address] [place], [place] [address]Dr. Donna Malone mAMP Negative Normal NEGATIVE [facility] Comment on above: Performed By: #### D SHARONA, ERUR ####[facility] Fexvtbyaip[address] [place] [address]Dr. Yilan Malone MTD Negative Normal NEGATIVE [facility] Comment on above: Performed By: #### D SHARONA, ERUR ####[facility] Fqlstayxpm4[address] [place] [address]Dr. Yilan Malone OPI Negative Normal NEGATIVE [facility] Comment on above: Performed By: #### D SHARONA, ERUR ####[facility] Wfrlltcjrd79[address] [place] [address]Dr. Yilan Malone OXY Negative Normal NEGATIVE [facility] Comment on above: Performed By: #### D SHARONA, ERUR ####[facility] Rvjeuhbtte5[address] [place] [address]Dr. Yiyvan Malone PCP Negative Normal NEGATIVE [facility] Comment on above: Performed By: #### Calvin TABOR, ERUR ####[facility] Jzquyaczcr33[address] [place] [address]Dr. Yilan Malone PPX Negative Normal NEGATIVE [facility] Comment on above: Performed By: #### Calvin TABOR, ERUR ####[facility] W[address] [place], [place] [address]Dr. Yiyvan Malone TCA Positive Abnormal NEGATIVE [facility] Comment on above: Performed By: #### D SHARONA, ERUR ####[facility] Vewzznupim[address] [place] [address]Dr. Yilan Malone THC Negative Normal NEGATIVE [facility] Comment on above: Performed By: #### D SHARONA, ERUR ####[facility] Lthjmeedxf6[address] [place] [address]Dr. Donna Malone ER URINE PROFILEon 3 Bilirubin Ql (U) MODERATE Abnormal NEGATIVE [facility] Comment on above: Performed By: #### D SHARONA, ERUR ####[facility] Bzllydwyoa49[address] [place] [address]Dr. Donna Malone Clarity (U) CLEAR Normal CLEAR [facility] Comment on above: Performed By: #### Calvin TABOR, ERUR ####[facility] Ahocnwbvej65[address] [place] [address]Dr. Donna Malone Color (U) DK. YELLOW Normal YELLOW [facility] Comment on above: Performed By: #### Calvin TABOR, ERUR ####[facility] Thurnjtvgg29[address] [place] [address]Dr. Donna Malone ERUAHD A micrscopic examina tion will be performed if indicated. Normal [facility] Comment on above: Performed By: #### Calvin TABOR, ERUR ####[facility] Chmrehsicv[address] [place], [place] [address]Dr. Donna Malone Glucose Ql (U) Negative Normal NEGATIVE [facility] Comment on above: Performed By: #### Calvin TABOR, ERUR ####[facility] Vzakxebtlf[address] [place], [place] [address]Dr. Donna Malone Hemoglobin Ql (U) Negative Normal NEGATIVE [facility] Comment on above: Performed By: #### Calvin TABOR, ERUR ####[facility] Psliarpuio57[address] [place], [place] [address]Dr. Donna Malone Ketones Ql (U) 40 mg/dl Abnormal NEGATIVE [facility] Comment on above: Performed By: #### Calvni TABOR, ERUR ####[facility] Wuleiakzss[address] [place], [place] [address]Dr. Donna Malone LEUKOCYTES Negative Normal NEGATIVE [facility] Comment on above: Performed By: #### Calvin TABOR, ERUR ####[facility] Wklgpaskbv[address] [place], [place] [address]Dr. Donna Malone Nitrite Ql (U) Negative Normal NEGATIVE [facility] Comment on above: Performed By: #### Calvin TABOR, ERUR ####[facility] Qyqayehafo08[address] [place], [place] [address]Dr. Donna Malone pH (U) 6.0 [pH] Normal 5-9 [facility] Comment on above: Performed By: #### Calvin TABOR, ERUR ####[facility] Dyagbkjmrm[address] [place], [place] [id number]. Donna Malone SPEC GRAVITY 1.030 Abnormal 1.005-<=1. 025 [facility] Comment on above: Performed By: #### D SHARONA ERUR ####[facility] Ifutbqepso27[address] [place] [address]Dr. Donna Malone UA PROTEIN TRACE Normal NEGATIVE/ TRACE [facility] Comment on above: Performed By: #### D SHARONA ERUR ####[facility] Xzoowhaozv[address] [place] [address]Dr. Donna Malone UR MICRO IND NOT INDICATED Normal [facility] Comment on above: Performed By: #### D NILA TABOR ####[facility] Xrsiikdswb[address] [place], [place] [address]Dr. Donna Malone Urobilinogen Qn (U) 1.0 {Jermain'U}/dL Normal 0.2 - 1. 0 [facility] Comment on above: Performed By: #### WESLY LAUR ####[facility] Qtgtknlsir8[address] [place], [place] [address]Dr. Donna Malone LACTATE/LACTIC ACIDon 2022 Lactate [Moles/Vol] 1.6 mmol/L Normal 0.4-1.9 [facility] Comment on above: Performed By: #### L ACT ####[facility] Kbmcnvqqhj[address] [place], [place] [address]Dr. Donna Malone PROF 14(COMP METB)on 023 Albumin [Mass/Vol] 3.4 g/dL Normal 3.4-5.0 [facility] Comment on above: Performed By: #### B BINDER SORTER, CMP, HSTROPN ####[facility] Nmuvijyayx29[address] [place] [address]Dr. Donna Malone Albumin/Globulin [Mass ratio] 1.0 {ratio} Normal [facility] Comment on above: Performed By: #### B BINDER SORTER, CMP, HSTROPN ####[facility] Blikkltuod[address] [place] [address]Dr. Donna Malone ALP [Catalytic activity/Vol] 48 U/L Normal 46-116 [facility] Comment on above: Performed By: #### B BINDER SORTER, CMP, HSTROPN ####[facility] Xqutchrcgx3785 [place] [address]Dr. Donna Malone ALT [Catalytic activity/Vol] 13 U/L Critically low 16-63 [facility] Comment on above: Performed By: #### B BINDER SORTER, CMP, HSTROPN ####[facility] Deenlgygqy9[address] [place] [address]Dr. Donna Malone Anion gap [Moles/Vol] 13.2 mmol/L Normal [facility] Comment on above: Performed By: #### B BINDER SORTER, CMP, HSTROPN ####[facility] Yisjswoztp[address] [place], [place] [address]Dr. Donna Malone AST [Catalytic activity/Vol] 13 U/L Critically low 15-37 [facility] Comment on above: Performed By: #### B BINDER SORTER, CMP, HSTROPN ####[facility] Buszlhtegc[address] [place], [place] [address]Dr. Donna Malone Bilirubin [Mass/Vol] 0.4 mg/dL Normal 0.2-1.0 [facility] Comment on above: Performed By: #### B BINDER SORTER, CMP, HSTROPN ####[facility] Ykbgpsguli[address] [place], [place] [address]Dr. Donna Malone Calcium [Mass/Vol] 9.2 mg/dL Normal 8.5-10.1 [facility] Comment on above: Performed By: #### B BINDER SORTER, CMP, HSTROPN ####[facility] Aoynpmhlwp9[address] [place] [address]Dr. Donna Malone Chloride [Moles/Vol] 108 mmol/L Critically high 98-107 [facility] Comment on above: Performed By: #### B BINDER SORTER, CMP, HSTROPN ####[facility] Iyyoqaejuy[address] [place] [address]Dr. Donna Malone CO2 [Moles/Vol] 27.0 mmol/L Normal 21.0-32.0 [facility] Comment on above: Performed By: #### B BINDER SORTER, CMP, HSTROPN ####[facility] [address] [place] [address]Dr. Donna Malone Creatinine [Mass/Vol] 1.14 mg/dL Normal 0.70-1.30 [facility] Comment on above: Performed By: #### B BINDER SORTER, CMP, HSTROPN ####[facility] Sr[address]zyfasoq[address] [place] [address]Dr. Donna Malone EGFR-AF SRI LANKAN >60 Normal >=60 [facility] Comment on above: Performed By: #### B BINDER SORTER, CMP, HSTROPN ####[facility] Ma[address]rsdds[address] [place] [address]Dr. Donna Malone EGFR-NON AF SRI LANKAN >60 Normal >=60 [facility] Comment on above: Performed By: #### B BINDER SORTER, CMP, HSTROPN ####[facility] Maqufskuvp[address] [place], [place] [address]Dr. Donna Malone Globulin (S) [Mass/Vol] 3.5 g/dL Normal [facility] Comment on above: Performed By: #### B BINDER SORTER, CMP, HSTROPN ####[facility] Gogmbgrtwn[address] [place], [place] [address]Dr. Donna Malone Glucose [Mass/Vol] 126 mg/dL Critically high 74-106 [facility] Comment on above: Performed By: #### B BINDER SORTER, CMP, HSTROPN ####[facility] Rsbnsqzcit[address] [place], [place] [address]Dr. Donna Malone Potassium [Moles/Vol] 4.2 mmol/L Normal 3.5-5.1 [facility] Comment on above: Performed By: #### B BINDER SORTER, CMP, HSTROPN ####[facility] [address]kzcbapprx[address] [place], [place] [address]Dr. Donna Malone Protein [Mass/Vol] 6.9 g/dL Normal 6.4-8.2 [facility] Comment on above: Performed By: #### B BINDER SORTER, CMP, HSTROPN ####[facility] Kzplfkfiny[address] [place], [place] [address]Dr. Donna Malone Sodium [Moles/Vol] 144 mmol/L Normal 136-145 [facility] Comment on above: Performed By: #### B BINDER SORTER, CMP, HSTROPN ####[facility] [address]pleq[address] [place] [id number]. Donna Malone Urea nitrogen [Mass/Vol] 17.0 mg/dL Normal 7.0-18.0 [facility] Comment on above: Performed By: #### B BINDER SORTER, CMP, HSTROPN ####[facility] Eqpvueypfh[address] [place] [id number]. Donna Malone Urea nitrogen/Creatinine [Mass ratio] 14.9 mg/mg Normal [facility] Comment on above: Performed By: #### B BINDER SORTER, CMP, HSTROPN ####[facility] O[address]qemv[address] [place] [id number]. Donna Malone TROPONIN, HIGH SENSITIVITYon 11-14-2022 HSTROP 11.2 pg/mL Normal 4.0-76.1 [facility] Comment on above: Result Comment: CUT- OFF POINTS HAVE BEEN ESTABLISHED BASED ON THE FOURTH UNIVERSAL DEFINITIONS OF MYOCARDIALINFARCTION. THE UPPER REFERENCE LIMIT (URL) OF TROPONIN, DEFINED THE 99TH PERCENTILE OFcTnI DISTRIBUTION IN A REFERENCE POPULATION, HAS BEEN CONFIRMED THE DECISION THRESHOLDFOR [place] DIAGNOSIS. Performed By: #### B BINDER SORTER, CMP, HSTROPN ####[facility] [address] [place] [phone]. Donna Malone XR CHEST 1 Von 11-14-2022 XR CHEST 1 V Normal [facility] XR lumbar spine AP/LAT/FLX/E XTon 11-01-2022 XR lumbar spine AP/LAT/FLX/EXT [facility] [place] [address] XRay Report Signed Patient: Taylor Mcclellan SR MR#: [id number] : 1955 Acct:[id number] Age/Sex: 67 / M ADM Date: 11/01/22 Loc: XD Room: Type: [facility] Attending Dr: Benson Lane MD Copies to: [...] Mj Rodriguez M.D.11/01/2022 3:07 PM Dictation Location: [place] [address] Transcribed By: [facility] 11/01/22 1507 Dictated By: Mj Rodriguez II, MD 11/01/22 1505 Signed By: 11/01/22 1507 [facility] ER URINE PROFILEon 3 Bilirubin Ql (U) Negative Normal NEGATIVE [facility] Comment on above: Performed By: #### E RUR ####[facility] [address]cbzyo[address] [place] [address]Dr. Donna Malone Clarity (U) CLEAR Normal CLEAR [facility] Comment on above: Performed By: #### E RUR ####[facility] [address]ixstcd[address] [place] [address]DrElizabeth Malone Color (U) YELLOW Normal YELLOW [facility] Comment on above: Performed By: #### E RUR ####[facility] [address]flsgo[address] [place] [address]Dr. Donna JARRELLAHD A micrscopic examina tion will be performed if indicated. Normal [facility] Comment on above: Performed By: #### E RUR ####[facility] Opmcsmulmk[address] [place], [place] [address]Dr. Donna Malone Glucose Ql (U) 250 mg/dl Abnormal NEGATIVE [facility] Comment on above: Performed By: #### E RUR ####[facility] Neutodizdj[address] [place], [place] [address]Dr. Donna Malone Hemoglobin Ql (U) TRACE-INTACT Abnormal NEGATIVE [facility] Comment on above: Performed By: #### E RUR ####[facility] Xwzyaekkxg[address] [place], [place] [address]Dr. Donna Malone Ketones Ql (U) Negative Normal NEGATIVE [facility] Comment on above: Performed By: #### E RUR ####[facility] Ztffrvrjpj[address] [place], [place] [address]Dr. Donna Malone LEUKOCYTES Negative Normal NEGATIVE [facility] Comment on above: Performed By: #### E RUR ####[facility] Yrhmufhjcz[address] [place], [place] [address]Dr. Donna Malone Nitrite Ql (U) Negative Normal NEGATIVE [facility] Comment on above: Performed By: #### E RUR ####[facility] Odopwxkxuc01[address] [place], [place] [address]Dr. Donna Malone pH (U) 5.5 [pH] Normal 5-9 [facility] Comment on above: Performed By: #### E RUR ####[facility] Dmipalbmbq46[address] [place], [place] [address]Dr. Donna Malone SPEC GRAVITY 1.025 Normal 1.005-<=1. 025 [facility] Comment on above: Performed By: #### E RUR ####[facility] Ddkcnywfgk[address] [place], [place] [address]Dr. Donna Malone UA PROTEIN Negative Normal NEGATIVE/ TRACE [facility] Comment on above: Performed By: #### E RUR ####[facility] A[address]zsw[address] [place] [address]Dr. Donna Malone UR MICRO IND NOT INDICATED Normal [facility] Comment on above: Performed By: #### E RUR ####[facility] Dhvhbinjtk[address] [place], [place] [address]Dr. Donna Mlaone Urobilinogen Qn (U) 0.2 {Jermain'U}/dL Normal 0.2 - 1. 0 [facility] Comment on above: Performed By: #### E RUR ####[facility] Kvpktudkdu7[address] [place], [place] [address]Dr. Donna Malone CBC AUTO DIFFon 10-26-2022 BASO # 0.0 103/ul Normal 0.0-0.1 [facility] Comment on above: Performed By: #### C BC ####[facility] Infutzduth[address] [place], [place] [address]Dr. Rubyyvan Malone Basophils/100 WBC (Bld) 0.4 % Normal 0.2-2.0 [facility] Comment on above: Performed By: #### C BC ####[facility] Nkqqhyftiy37[address] [place], [place] [address]Dr. Donna Malone EO # 0.0 103/ul Normal 0.0-0.7 [facility] Comment on above: Performed By: #### C BC ####[facility] Wzmnzhszqt24[address] [place], [place] [address]Dr. Donna Malone Eosinophils/100 WBC (Bld) 0.0 % Critically low 0.9-7.0 [facility] Comment on above: Performed By: #### C BC ####[facility] Qvevmyqzrd9401[address] [place], [place] [address]Dr. Donna Malone Erythrocyte distribution width (RBC) [Ratio] 14.5 % Normal 11.0-15.0 [facility] Comment on above: Performed By: #### C BC ####[facility] Omcqiduxni24[address] [place], [place] [address]Dr. Donna Malone Hematocrit (Bld) [Volume fraction] 41.2 % Critically low 42.0-54.0 [facility] Comment on above: Performed By: #### C BC ####[facility] [address]cf[address] [place] [phone]. Donna Malone Hemoglobin (Bld) [Mass/Vol] 13.7 g/dL Critically low 14.0-18.0 [facility] Comment on above: Performed By: #### C BC ####[facility] Usflfrucue[address] [place] [address]Dr. Donna Malone IG # 0.02 10e3/ul Normal 0.00-0.03 [facility] Comment on above: Performed By: #### C BC ####[facility] Aqnpywvjqx[address] [place], [place] [address]Dr. Donna Malone IG % 0.2 % Normal 0.0-0.5 [facility] Comment on above: Performed By: #### C BC ####[facility] Yxuktkmknv[address] [place], [place] [address]Dr. Donna Malone LYMPH # 1.2 103/ul Normal 1.2-3.8 [facility] Comment on above: Performed By: #### C BC ####[facility] Lofqvsxqlk[address] [place], [place] [address]Dr. Donna Malone Lymphocytes/100 WBC (Bld) 14.4 % Critically low 20.5-60.0 [facility] Comment on above: Performed By: #### C BC ####[facility] Smnxpukgxd[address] [place], [place] [address]Dr. Donna Malone MANUAL DIFF REQ NO Normal [facility] Comment on above: Performed By: #### C BC ####[facility] Kzdkdshymz[address] [place], [place] [address]Dr. Donna Malone MCH (RBC) [Entitic mass] 29.4 pg Normal 25.9-34.0 [facility] Comment on above: Performed By: #### C BC ####[facility] Dmwyjoqijw[address] [place], [place] [address]Dr. Donna Malone MCHC (RBC) [Mass/Vol] 33.3 g/dL Normal 29.9-35.2 [facility] Comment on above: Performed By: #### C BC ####[facility] T[address]zrpx[address] [place] [phone]. Donna Malone MCV (RBC) [Entitic vol] 88.4 fL Normal 80.0-94.0 [facility] Comment on above: Performed By: #### C BC ####[facility] Egwxkelfme[address] [place] [id number]. Donna Malone MONO # 0.2 103/ul Critically low 0.3-0.8 [facility] Comment on above: Performed By: #### C BC ####[facility] Rayppabsrb5[address] [place], [place] [address]Dr. Donna Malone Monocytes/100 WBC (Bld) 2.5 % Normal 1.7-12.0 [facility] Comment on above: Performed By: #### C BC ####[facility] Kufpozhfeg[address] [place], [place] [address]Dr. Donna Malone NEUT # 6.9 103/ul Critically high 1.4-6.5 [facility] Comment on above: Performed By: #### C BC ####[facility] Csmlooyusj[address] [place], [place] [address]Dr. Donna Malone Neutrophils/100 WBC (Bld) 82.5 % Critically high 43.0-75.0 [facility] Comment on above: Performed By: #### C BC ####[facility] Ivmjbfakjo64[address] [place], [place] [address]Dr. Donna Malone Platelet mean volume (Bld) [Entitic vol] 11.3 fL Normal 9.5-13.5 [facility] Comment on above: Performed By: #### C BC ####[facility] Pnldedykqw7[address] [place], [place] [address]Dr. Donna Malone PLT 241 103/ul Normal 150-450 [facility] Comment on above: Performed By: #### C BC ####[facility] Bvdakrmaeq[address] [place], [place] [id number]. Donna Malone RBC 4.66 106/ul Critically low 4.70-6.10 [facility] Comment on above: Performed By: #### C BC ####[facility] Bxt[address]opquq[address] [place] [phone]. Donna Malone WBC 8.4 103/ul Normal 4.0-11.0 [facility] Comment on above: Performed By: #### C BC ####[facility] U[address]jdkmxj[address] [place] [address]Dr. Donna Malone CRPon 10-26-2022 CRP [Mass/Vol] mg/L Normal <=1.0 [facility] Comment on above: Performed By: #### C RP, BMP ####[facility] Ams[address]fpklye[address] [place] [address]Dr. Donna Malone CT LSPINE WO CONon 3 CT LSPINE WO CON Normal [facility] PROF CHEM 8 (BAS METB)on Anion gap [Moles/Vol] 11.9 mmol/L Normal [facility] Comment on above: Performed By: #### C RP, BMP ####[facility] Ppgaftkumv[address] [place], [place] [address]Dr. Donna Malone Calcium [Mass/Vol] 9.1 mg/dL Normal 8.5-10.1 [facility] Comment on above: Performed By: #### C RP, BMP ####[facility] Imlgeijlbh[address] [place], [place] [address]Dr. Donna Malone Chloride [Moles/Vol] 104 mmol/L Normal 98-107 [facility] Comment on above: Performed By: #### C RP, BMP ####[facility] Vtoxoqizaj[address] [place] [address]Dr. Donna Malone CO2 [Moles/Vol] 26.3 mmol/L Normal 21.0-32.0 [facility] Comment on above: Performed By: #### C RP, BMP ####[facility] Upkytspodu[address] [place] [address]Dr. Donna Malone Creatinine [Mass/Vol] 0.99 mg/dL Normal 0.70-1.30 [facility] Comment on above: Performed By: #### C RP, BMP ####[facility] Uoltxmhgxj[address] [place] [id number]. Donna Malone EGFR-AF SRI LANKAN >60 Normal >=60 [facility] Comment on above: Performed By: #### C RP, BMP ####[facility] Xfgkusqlvc[address] [place], [place] [address]Dr. Donna Malone EGFR-NON AF SRI LANKAN >60 Normal >=60 [facility] Comment on above: Performed By: #### C RP, BMP ####[facility] Gytgqzgulg[address] [place], [place] [address]Dr. Donna Malone Glucose [Mass/Vol] 152 mg/dL Critically high 74-106 T [facility] Comment on above: Performed By: #### C RP, BMP ####[facility] Jnvvjgsavl97[address] [place], [place] [address]Dr. Donna Malone Potassium [Moles/Vol] 4.2 mmol/L Normal 3.5-5.1 [facility] Comment on above: Performed By: #### C RP, BMP ####[facility] Untyrhvlwe90[address] [place], [place] [address]Dr. Donna Malone Sodium [Moles/Vol] 138 mmol/L Normal 136-145 [facility] Comment on above: Performed By: #### C RP, BMP ####[facility] Agnulfiexj77[address] [place], [place] [address]Dr. Donna Malone Urea nitrogen [Mass/Vol] 12.0 mg/dL Normal 7.0-18.0 [facility] Comment on above: Performed By: #### C RP, BMP ####[facility] Uffqdtryfc04[address] [place], [place] [address]Dr. Donna Malone Urea nitrogen/Creatinine [Mass ratio] 12.1 mg/mg Normal [facility] Comment on above: Performed By: #### C RP, BMP ####[facility] Eevztifldh[address] [place], [place] [address]Dr. Donna Malone SED RATE [facility] 2022 SED RATE 57 mm/hr Critically high <=20 [facility] Comment on above: Performed By: #### S EDR ####[facility] Lkeklgcqbs[address] [place] [address]Dr. Donna Malone CBC AUTO DIFFon 10-25-2022 BASO # 0.0 103/ul Normal 0.0-0.1 [facility] Comment on above: Performed By: #### C BC ####[facility] Jroxwedkox[address] [place], [place] [address]Dr. Donna Faisal Basophils/100 WBC (Bld) 0.4 % Normal 0.2-2.0 [facility] Comment on above: Performed By: #### C BC ####[facility] Yxmfpmodni9[address] [place], [place] [address]Dr. Donna Malone EO # 0.0 103/ul Normal 0.0-0.7 [facility] Comment on above: Performed By: #### C BC ####[facility] Ajeshoxtyz8034[address] [place], [place] [address]Dr. Donna Faisal Eosinophils/100 WBC (Bld) 0.0 % Critically low 0.9-7.0 [facility] Comment on above: Performed By: #### C BC ####[facility] Brpaqolxhc4396[address] [place], [place] [address]Dr. Donna Malone Erythrocyte distribution width (RBC) [Ratio] 14.5 % Normal 11.0-15.0 [facility] Comment on above: Performed By: #### C BC ####[facility] Zuhdylpghf06[address] [place], [place] [address]Dr. Donna Malone Hematocrit (Bld) [Volume fraction] 43.8 % Normal 42.0-54.0 [facility] Comment on above: Performed By: #### C BC ####[facility] Whupsdwace7026[address] [place], [place] [address]Dr. Donna Malone Hemoglobin (Bld) [Mass/Vol] 14.2 g/dL Normal 14.0-18.0 [facility] Comment on above: Performed By: #### C BC ####[facility] Knnzpderpb[address] [place], [place] [address]Dr. Donna Malone IG # 0.01 10e3/ul Normal 0.00-0.03 [facility] Comment on above: Performed By: #### C BC ####[facility] Uif[address]bhmr[address] [place] [id number]. Donna Malone IG % 0.1 % Normal 0.0-0.5 [facility] Comment on above: Performed By: #### C BC ####[facility] Teenwndscl3[address] [place] [id number]. Donna Malone LYMPH # 1.4 103/ul Normal 1.2-3.8 [facility] Comment on above: Performed By: #### C BC ####[facility] Zyxiscretw6[address] [place] [id number]. Donna Malone Lymphocytes/100 WBC (Bld) 17.1 % Critically low 20.5-60.0 [facility] Comment on above: Performed By: #### C BC ####[facility] Cabdseuitj[address] [place] [phone]. Donna Malone MANUAL DIFF REQ NO Normal [facility] Comment on above: Performed By: #### C BC ####[facility] Pabafmqsch[address] [place], [place] [id number]. Donna Malone MCH (RBC) [Entitic mass] 29.1 pg Normal 25.9-34.0 [facility] Comment on above: Performed By: #### C BC ####[facility] Lycaytkmjg60[address] [place] [phone]. Donna Malone MCHC (RBC) [Mass/Vol] 32.4 g/dL Normal 29.9-35.2 [facility] Comment on above: Performed By: #### C BC ####[facility] Fkyjkwytdx[address] [place], [place] [address]Dr. Donna Malone MCV (RBC) [Entitic vol] 89.8 fL Normal 80.0-94.0 [facility] Comment on above: Performed By: #### C BC ####[facility] Anpkqsogua50[address] [place] [id number]. Donna Malone MONO # 0.3 103/ul Normal 0.3-0.8 [facility] Comment on above: Performed By: #### C BC ####[facility] Vwwcveslto39[address] [place] [id number]. Donna Malone Monocytes/100 WBC (Bld) 4.1 % Normal 1.7-12.0 [facility] Comment on above: Performed By: #### C BC ####[facility] Xsueenyuvo5[address] [place] [id number]. Donna Malone NEUT # 6.3 103/ul Normal 1.4-6.5 [facility] Comment on above: Performed By: #### C BC ####[facility] Abfizjmgip76[address] [place] [id number]. Donna Malone Neutrophils/100 WBC (Bld) 78.3 % Critically high 43.0-75.0 [facility] Comment on above: Performed By: #### C BC ####[facility] Fiiqcxtthl[address] [place] [address]Dr. Donna Malone Platelet mean volume (Bld) [Entitic vol] 11.3 fL Normal 9.5-13.5 [facility] Comment on above: Performed By: #### C BC ####[facility] Rnalyetxqc9052 [place] [id number]. Donna Malone PLT 271 103/ul Normal 150-450 [facility] Comment on above: Performed By: #### C BC ####[facility] Ewtwoxykqm6[address] [place] [id number]. Donna Malone RBC 4.88 106/ul Normal 4.70-6.10 [facility] Comment on above: Performed By: #### C BC ####[facility] Bwpdqhuiow12[address] [place] [id number]. Donna Malone WBC 8.0 103/ul Normal 4.0-11.0 [facility] Comment on above: Performed By: #### C BC ####[facility] Iwlgacdans67[address] [place] [id number]. Donna Malone ER URINE PROFILEon 3 Bilirubin Ql (U) Negative Normal NEGATIVE [facility] Comment on above: Performed By: #### E RUR ####[facility] Ufgnedpphh[address] [place], [place] [address]Dr. Donna Malone Clarity (U) CLEAR Normal CLEAR [facility] Comment on above: Performed By: #### E RUR ####[facility] Imqnjfvpxt[address] [place], [place] [address]Dr. Donna Malone Color (U) YELLOW Normal YELLOW [facility] Comment on above: Performed By: #### E RUR ####[facility] Iwbfdavega9[address] [place], [place] [address]Dr. Donna Malone ERUAHD A micrscopic examina tion will be performed if indicated. Normal [facility] Comment on above: Performed By: #### E RUR ####[facility] Sddnbjlchv[address] [place], [place] [address]Dr. Donna Malone Glucose Ql (U) 100 mg/dl Abnormal NEGATIVE [facility] Comment on above: Performed By: #### E RUR ####[facility] Bfxzqqxaeh[address] [place], [place] [address]Dr. Donna Malone Hemoglobin Ql (U) Negative Normal NEGATIVE [facility] Comment on above: Performed By: #### E RUR ####[facility] Mgmqncjdsu6082[address] [place], [place] [address]Dr. Donna Malone Ketones Ql (U) TRACE Abnormal NEGATIVE [facility] Comment on above: Performed By: #### E RUR ####[facility] Iokoosxwnh55[address] [place], [place] [address]Dr. Donna Malone LEUKOCYTES Negative Normal NEGATIVE [facility] Comment on above: Performed By: #### E RUR ####[facility] Uuuumcjcvr[address] [place], [place] [address]Dr. Donna Malone Nitrite Ql (U) Negative Normal NEGATIVE [facility] Comment on above: Performed By: #### E RUR ####[facility] Fcmvullzkz[address] [place], [place] [address]Dr. Donna Malone pH (U) 6.0 [pH] Normal 5-9 [facility] Comment on above: Performed By: #### E RUR ####[facility] Mobshadjes[address] [place], [place] [address]Dr. Donna Malone SPEC GRAVITY >=1.030 Abnormal 1.005-<=1. 025 [facility] Comment on above: Performed By: #### E RUR ####[facility] Dnrvhdeaot27[address] [place], [place] [address]Dr. Donna Malone UA PROTEIN Negative Normal NEGATIVE/ TRACE [facility] Comment on above: Performed By: #### E RUR ####[facility] Zyydhbbrpx[address] [place], [place] [address]Dr. Donna Malone UR MICRO IND NOT INDICATED Normal [facility] Comment on above: Performed By: #### E RUR ####[facility] Algvebzjcs[address] [place], [place] [address]Dr. Donna Malone Urobilinogen Qn (U) 0.2 {Jermain'U}/dL Normal 0.2 - 1. 0 [facility] Comment on above: Performed By: #### E RUR ####[facility] Fxnxyfzbni34[address] [place], [place] [address]DrElizabeth Malone PROF CHEM 8 (BAS METB)on Anion gap [Moles/Vol] 16.4 mmol/L Normal [facility] Comment on above: Performed By: #### B MP ####[facility] Rrtpzfjbhz30[address] [place], [place] [address]Dr. Donna Malone Calcium [Mass/Vol] 9.4 mg/dL Normal 8.5-10.1 [facility] Comment on above: Performed By: #### B MP ####[facility] Wthiosjsyy06[address] [place], [place] [address]DrElizabeth Malone Chloride [Moles/Vol] 103 mmol/L Normal 98-107 [facility] Comment on above: Performed By: #### B MP ####[facility] Zefawfcotk69[address] [place], [place] [address]DrElizabeth Malone CO2 [Moles/Vol] 23.7 mmol/L Normal 21.0-32.0 [facility] Comment on above: Performed By: #### B MP ####[facility] Ltxtyabvrf48[address] [place], [place] [address]DrElizabeth Malone Creatinine [Mass/Vol] 1.12 mg/dL Normal 0.70-1.30 [facility] Comment on above: Performed By: #### B MP ####[facility] B[address]nbiccy[address] [place] [address]Dr. Donna Faisal EGFR-AF SRI LANKAN >60 Normal >=60 [facility] Comment on above: Performed By: #### B MP ####[facility] Xmulxtnyuz9[address] [place] [address]Dr. Donna Faisal EGFR-NON AF SRI LANKAN >60 Normal >=60 [facility] Comment on above: Performed By: #### B MP ####[facility] Cfyrftygms54[address] [place], [place] [address]Dr. Donna Malone Glucose [Mass/Vol] 170 mg/dL Critically high 74-106 T [facility] Comment on above: Performed By: #### B MP ####[facility] Plzsygejxv38[address] [place], [place] [address]Dr. Donna Malone Potassium [Moles/Vol] 4.1 mmol/L Normal 3.5-5.1 [facility] Comment on above: Performed By: #### B MP ####[facility] Stqrxfoftn[address] [place], [place] [address]Dr. Donna Malone Sodium [Moles/Vol] 139 mmol/L Normal 136-145 [facility] Comment on above: Performed By: #### B MP ####[facility] Rimjzgqgof[address] [place], [place] [address]Dr. Donna Malone Urea nitrogen [Mass/Vol] 9.0 mg/dL Normal 7.0-18.0 [facility] Comment on above: Performed By: #### B MP ####[facility] Jfpswpnpbd12[address] [place], [place] [address]Dr. Donna Malone Urea nitrogen/Creatinine [Mass ratio] 8.0 mg/mg Normal [facility] Comment on above: Performed By: #### B MP ####[facility] Jtpadvmyxl[address] [place], [place] [id number]. Donna Malone ACETONE SERUMon 08-10-2022 ACETONE Negative Normal NEGATIVE [facility] Comment on above: Performed By: #### A CETON ####[facility] [address]qxunjaut[address] [place] [address]Dr. Donna Malone CBC AUTO DIFFon 08-10-2022 BASO # 0.1 103/ul Normal 0.0-0.1 [facility] Comment on above: Performed By: #### C BC ####[facility] Zmmbxrwqha[address] [place], [place] [address]Dr. Donna Malone Basophils/100 WBC (Bld) 0.7 % Normal 0.2-2.0 [facility] Comment on above: Performed By: #### C BC ####[facility] Jcbemzzeso[address] [place], [place] [address]Dr. Donna Malone EO # 0.2 103/ul Normal 0.0-0.7 [facility] Comment on above: Performed By: #### C BC ####[facility] Xqngrwavel[address] [place], [place] [address]Dr. Donna Malone Eosinophils/100 WBC (Bld) 2.0 % Normal 0.9-7.0 [facility] Comment on above: Performed By: #### C BC ####[facility] Wvdxajmemt[address] [place], [place] [address]Dr. Donna Malone Erythrocyte distribution width (RBC) [Ratio] 14.3 % Normal 11.0-15.0 [facility] Comment on above: Performed By: #### C BC ####[facility] Aotmruirhg[address] [place], [place] [address]Dr. Donna Malone Hematocrit (Bld) [Volume fraction] 37.3 % Critically low 42.0-54.0 [facility] Comment on above: Performed By: #### C BC ####[facility] Drwrlvnrkv[address] [place], [place] [address]Dr. Donna Malone Hemoglobin (Bld) [Mass/Vol] 12.1 g/dL Critically low 14.0-18.0 [facility] Comment on above: Performed By: #### C BC ####[facility] Nfebnjtdnj[address] [place] [id number]. Donna Malone IG # 0.03 10e3/ul Normal 0.00-0.03 [facility] Comment on above: Performed By: #### C BC ####[facility] [address] [place] [address]DrElizabeth Donna Malone IG % 0.4 % Normal 0.0-0.5 [facility] Comment on above: Performed By: #### C BC ####[facility] [address] [place] [address]DrElizabeth Donna Faisal LYMPH # 1.3 103/ul Normal 1.2-3.8 [facility] Comment on above: Performed By: #### C BC ####[facility] [address] [place] [address]DrElizabeth Donna Faisal Lymphocytes/100 WBC (Bld) 18.3 % Critically low 20.5-60.0 [facility] Comment on above: Performed By: #### C BC ####[facility] [address] [place], [place] [address]DrElizabeth Donna Faisal MANUAL DIFF REQ NO Normal [facility] Comment on above: Performed By: #### C BC ####[facility] [address] [place], [place] [address]DrElizabeth Donna Faisal MCH (RBC) [Entitic mass] 30.1 pg Normal 25.9-34.0 [facility] Comment on above: Performed By: #### C BC ####[facility] [address] [place], [place] [address]DrElizabeth Donna Faisal MCHC (RBC) [Mass/Vol] 32.4 g/dL Normal 29.9-35.2 [facility] Comment on above: Performed By: #### C BC ####[facility] [address] [place], [place] [address]DrElizabeth Malone MCV (RBC) [Entitic vol] 92.8 fL Normal 80.0-94.0 [facility] Comment on above: Performed By: #### C BC ####[facility] [address] [place], [place] [address]DrElizabeth Malone MONO # 0.6 103/ul Normal 0.3-0.8 [facility] Comment on above: Performed By: #### C BC ####[facility] [address] [place] [address]Dr. Donna Malone Monocytes/100 WBC (Bld) 7.6 % Normal 1.7-12.0 [facility] Comment on above: Performed By: #### C BC ####[facility] [address] [place] [address]Dr. Donna Malone NEUT # 5.2 103/ul Normal 1.4-6.5 [facility] Comment on above: Performed By: #### C BC ####[facility] [address] [place] [address]Dr. Donna Malone Neutrophils/100 WBC (Bld) 71.0 % Normal 43.0-75.0 [facility] Comment on above: Performed By: #### C BC ####[facility] [address] [place], [place] [address]Dr. Donna Malone Platelet mean volume (Bld) [Entitic vol] 11.6 fL Normal 9.5-13.5 [facility] Comment on above: Performed By: #### C BC ####[facility] [address] [place], [place] [address]Dr. Donna Malone PLT 237 103/ul Normal 150-450 [facility] Comment on above: Performed By: #### C BC ####[facility] [address] [place] [address]Dr. Donna Malone RBC 4.02 106/ul Critically low 4.70-6.10 [facility] Comment on above: Performed By: #### C BC ####[facility] [address] [place] [id number]. Donna Malone WBC 7.3 103/ul Normal 4.0-11.0 [facility] Comment on above: Performed By: #### C BC ####[facility] [address] [place] [address]Dr. Donna Malone Covid-19 PCR ([facility])on SARS-CoV-2 (COVID-19) RNA JOSÉ MIGUEL+probe Ql (Unsp spec) Not detected Normal NOT DETECTED [facility] Comment on above: Result Comment: When diagnostic [...] for this test is supported by the [place] of Health and Human Service's declaration that [...] be used). Performed By: #### C VDTBH ####[facility] [address] [place], [place] [address]Dr. Donna Malone LACTATE/LACTIC ACIDon 2021 Lactate [Moles/Vol] 1.3 mmol/L Normal 0.4-1.9 [facility] Comment on above: Performed By: #### L ACT ####[facility] [address] [place], [place] [address]DrElizabeth Malone PROF 14(COMP METB)on 022 Albumin [Mass/Vol] 2.9 g/dL Critically low 3.4-5.0 [facility] Comment on above: Performed By: #### C MP, HSTROPN ####[facility] [address] [place], [place] [address]DrElizabeth Malone Albumin/Globulin [Mass ratio] 0.7 {ratio} Normal [facility] Comment on above: Performed By: #### C MARTI, HSTROPN ####[facility] [address] [place], [place] [address]DrElizabeth Malone ALP [Catalytic activity/Vol] 45 U/L Critically low 46-116 [facility] Comment on above: Performed By: #### C MARTI HSTROPN ####[facility] [address] [place] [address]Dr. Donna Malone ALT [Catalytic activity/Vol] 12 U/L Critically low 16-63 [facility] Comment on above: Performed By: #### C MARTI HSTROPN ####[facility] [address] [place] [address]Dr. Donna Malone Anion gap [Moles/Vol] 10.9 mmol/L Normal [facility] Comment on above: Performed By: #### C MARTI HSTROPN ####[facility] [address] [place], [place] [address]Dr. Donna Malone AST [Catalytic activity/Vol] 10 U/L Critically low 15-37 [facility] Comment on above: Performed By: #### C MARTI HSTROPN ####[facility] [address] [place], [place] [address]Dr. Donna Malone Bilirubin [Mass/Vol] 0.3 mg/dL Normal 0.2-1.0 [facility] Comment on above: Performed By: #### C MARTI HSTROPN ####[facility] [address] [place], [place] [address]Dr. Donna Malone Calcium [Mass/Vol] 8.9 mg/dL Normal 8.5-10.1 [facility] Comment on above: Performed By: #### C MATRI HSTROPN ####[facility] [address] [place], [place] [address]Dr. Donna Malone Chloride [Moles/Vol] 106 mmol/L Normal 98-107 [facility] Comment on above: Performed By: #### C MARTI HSTROPN ####[facility] [address] [place], [place] [address]Dr. Donna Malone CO2 [Moles/Vol] 29.4 mmol/L Normal 21.0-32.0 [facility] Comment on above: Performed By: #### C MARTI HSTROPN ####[facility] [address] [place] [id number]. Donna Malone Creatinine [Mass/Vol] 1.15 mg/dL Normal 0.70-1.30 [facility] Comment on above: Performed By: #### C MARTI, HSTROPN ####[facility] [address] [place] [id number]. Donna Malone EGFR-AF SRI LANKAN >60 Normal >=60 [facility] Comment on above: Performed By: #### C MP, HSTROPN ####[facility] [address] [place] [address]Dr. Donna Malone EGFR-NON AF SRI LANKAN >60 Normal >=60 [facility] Comment on above: Performed By: #### C MARTI, HSTROPN ####[facility] [address] [place] [address]Dr. Donna Malone Globulin (S) [Mass/Vol] 4.2 g/dL Normal [facility] Comment on above: Performed By: #### C MARTI, HSTROPN ####[facility] [address] [place] [address]Dr. Donna Malone Glucose [Mass/Vol] 116 mg/dL Critically high 74-106 [facility] Comment on above: Performed By: #### C MARTI, HSTROPN ####[facility] [address] [place] [address]Dr. Donna Malone Potassium [Moles/Vol] 4.3 mmol/L Normal 3.5-5.1 [facility] Comment on above: Performed By: #### C MP, HSTROPN ####[facility] [address] [place] [address]Dr. Donna Malone Protein [Mass/Vol] 7.1 g/dL Normal 6.4-8.2 [facility] Comment on above: Performed By: #### C MP, HSTROPN ####[facility] [address] [place] [address]Dr. Donna Malone Sodium [Moles/Vol] 142 mmol/L Normal 136-145 [facility] Comment on above: Performed By: #### C MARTI, HSTROPN ####[facility] [address] [place] [id number]. Donna Malone Urea nitrogen [Mass/Vol] 9.0 mg/dL Normal 7.0-18.0 [facility] Comment on above: Performed By: #### C MP, HSTROPN ####[facility] [address] [place] [id number]. Donna Faisal Urea nitrogen/Creatinine [Mass ratio] 7.8 mg/mg Normal [facility] Comment on above: Performed By: #### C MARTI, HSTROPN ####[facility] [address] [place] [address]Dr. Donna Malone TROPONIN, HIGH SENSITIVITYon 08-10-2022 HSTROP 9.1 pg/mL Normal 4.0-76.1 [facility] Comment on above: Result Comment: CUT- OFF POINTS HAVE BEEN ESTABLISHED BASED ON THE FOURTH UNIVERSAL DEFINITIONS OF MYOCARDIALINFARCTION. THE UPPER REFERENCE LIMIT (URL) OF TROPONIN, DEFINED THE 99TH PERCENTILE OFcTnI DISTRIBUTION IN A REFERENCE POPULATION, HAS BEEN CONFIRMED THE DECISION THRESHOLDFOR [place] DIAGNOSIS. Performed By: #### C MARTI, HSTROPN ####[facility] [address] [place] [address]Dr. Donna Malone XR KNEE RT 4V or >on 022 XR KNEE RT 4V or > Normal [facility] CT HEAD WO CONon 08-05-2022 CT HEAD WO CON Normal [facility] CT CSPINE WO CONon 2 CT CSPINE WO CON Normal [facility] CT FACIAL BONES WO CONon CT FACIAL BONES WO CON Normal [facility] CT LSPINE WO CONon 2 CT LSPINE WO CON Normal [facility] Glucose Glucometer (BldC) [M ass/Vol]Ordered By: Sang Bauer on 07-20-2022 Glucose [Mass/Vol] 139 mg/dL [facility] Comment on above: Random Glucose Refer ence Range is dependent on time and content of last meal. Glucose of more than 200 mg/dL in a nonstressed, ambulatory subject supports the diagnosis of Diabetes Mellitus. No Panel InformationOrdered By: Sang Bauer on 07-20-2022 Bedside Glucose Comment Glu2: cleaned meter [facility] Cholesterol [Mass/volume] in Serum or PlasmaOrdered By: Sang Bauer on 07-18-2022 Cholesterol [Mass/Vol] 136 mg/dL 140-200 [facility] Comment on above: Chol less than 200 m g/dl low riskChol 201-239 mg/dl borderline riskChol 240 mg/dl and greater high risk Cholesterol in LDL Calc [Mas s/Vol]Ordered By: Sang Bauer on 07-18-2022 Cholesterol in LDL [Mass/Vol] 81 mg/dL 0-100 [facility] Comment on above: LDL ATP III CLASSIFI CATIONLDL less than 100 mg/dL OptimalLDL 100-129 mg/dL Near or above optimalLDL 130-159 mg/dL Borderline highLDL 160-189 mg/dL HighLDL greater than 189 mg/dL Very high Cholesterol in VLDL Calc [Ma ss/Vol]Ordered By: Sang Bauer on 07-18-2022 Cholesterol in VLDL [Mass/Vol] 17 mg/dL [facility] Serum or plasma high density lipoprotein (HDL) cholesterol measurementOrdered By: Sang Bauer on 07-18-2022 Cholesterol in HDL [Mass/Vol] 38 mg/dL 29-71 [facility] Comment on above: HDL CHOL ATP-III CLA SSIFICATION Cardiovascular RiskHDL > or equal to 60 mg/dL LOWHDL < 40 mg/dL HIGH Serum or plasma total choles terol/high density lipoprotein (HDL) cholesterol mass ratOrdered By: Sang Bauer on 07-18-2022 Cholesterol.total/Chol esterol in HDL [Mass ratio] 3.6 {ratio} <5.0 [facility] Triglyceride [Mass/volume] i n Serum or PlasmaOrdered By: Sang Bauer on 07-18-2022 Triglyceride [Mass/Vol] 85 mg/dL 35-149 [facility] Comment on above: TRIG ATP III [...] aPTT Coag (PPP) [Time] 35.8 s 25.1-36.5 [facility] Albumin [Mass/volume] in Ser um or PlasmaOrdered By: Gayathri Leal on 07-17-2022 Albumin [Mass/Vol] 3.1 g/dL 3.2-5.5 [facility] Amphetamine Screen Ql (U)Ord ered By: Gayathri Leal on 07-17-2022 Amphetamines Ql (U) Negative Negative [facility] Automated erythrocytes count in urine sediment (number/area)Ordered By: Gayathri Leal on 07-17-2022 RBC Auto (Urine sed) [#/Area] 3-4 [HPF] 0-4 [facility] Automated leukocytes count i n urine sediment (number/area)Ordered By: Gayathri Leal on 07-17-2022 WBC Auto (Urine sed) [#/Area] 1-2 [HPF] 0-4 [facility] Barbiturates [Presence] in U rineOrdered By: Gayathri Leal on 07-17-2022 Barbiturates Ql (U) Negative Negative [facility] Basophils Auto (Bld) [#/Vol] Ordered By: Gayathri Leal on 07-17-2022 Basophils (Bld) [#/Vol] 0.1 10*3/uL 0.0-0.2 [facility] Basophils/100 WBC Auto (Bld) Ordered By: Gayathri Leal on 07-17-2022 Basophils/100 WBC (Bld) 1.0 % . [facility] Benzodiazepines [Presence] i n UrineOrdered By: Gayathri Leal on 07-17-2022 Benzodiazepines Ql (U) Positive Negative [facility] Bilirubin Test strip Ql (U)O rdered By: Gayathri Leal on 07-17-2022 Bilirubin Ql (U) Negative Negative [facility] COVID CepheidOrdered By: Olya shahriar Leal on 07-17-2022 SARS-CoV-2 (COVID-19) Ab IA Ql Negative Negative [facility] Comment on above: This is a duplicate [employer] Xpert Xpress CoV-2/Flu/RSV Plus RNA by RT-PCR result to be used for statistical tracking purpose only. SARS-CoV-2 (COVID-19) RNA JOSÉ MIGUEL+probe Ql (Unsp spec) [facility] Cannabinoids [Presence] in U rine by Screen methodOrdered By: Gayathri Leal on 07-17-2022 Cannabinoids Screen Ql (U) Negative Negative [facility] Comment on above: These are unconfirme d results and should not be used for legal purposes. Drug Cut-Off Concentration: AMPH 1000 ng/mL EWA 200 ng/mL JOHN 200 ng/mL COCM 300 ng/mL OP 300 ng/mL PCP 25 ng/mL THC 20 ng/mL Color Auto (U)Ordered By: Dung Leal on 07-17-2022 Color (U) Yellow Yellow [facility] Creatine kinase [Enzymatic a ctivity/volume] in Serum or PlasmaOrdered By: Gayathri Leal on 07-17-2022 CK [Catalytic activity/Vol] 137 U/L 22-269 [facility] Creatinine and Glomerular fi ltration rate.predicted panel (S/P/Bld)Ordered By: Gayathri Leal on 07-17-2022 Creatinine [Mass/Vol] 1.06 mg/dL 0.64-1.27 [facility] Direct bilirubin measurement Ordered By: Gayathri Leal on 07-17-2022 Bilirubin.direct [Mass/Vol] mg/dL 0.0-0.4 [facility] Eosinophils Auto (Bld) [#/Vo l]Ordered By: Gayathri Leal on 07-17-2022 Eosinophils (Bld) [#/Vol] 0.1 10*3/uL 0.0-0.45 [facility] Eosinophils/100 WBC Auto (Bl d)Ordered By: Gayathri Leal on 07-17-2022 Eosinophils/100 WBC (Bld) 0.7 % . [facility] Erythrocyte distribution wid th Auto (RBC) [Ratio]Ordered By: Gayathri Leal on 07-17-2022 Erythrocyte distribution width (RBC) [Ratio] 15.8 % 12.0-14.8 [facility] Estimated glomerular filtrat ion rate (GFR) non- AmericanOrdered By: Gayathri Leal on 07-17-2022 GFR/1.73 sq M.predicted among non-blacks MDRD (S/P/Bld) [Vol rate/Area] > 60 mL/Min [facility] Globulin Calc (S) [Mass/Vol] Ordered By: Gayathri Leal on 07-17-2022 Globulin (S) [Mass/Vol] 3.0 g/dL [facility] Glucose mean value [Mass/vol ume] in Blood Estimated from glycated hemoglobinOrdered By: Sang Bauer on 07-17-2022 Average glucose Estimated from glycated hemoglobin (Bld) [Mass/Vol] 114 mg/dL [facility] Hematocrit Auto (Bld) [Volum e fraction]Ordered By: Gayathri Leal on 07-17-2022 Hematocrit (Bld) [Volume fraction] 37.3 % 38.8-50.0 [facility] Hemoglobin A1c percentageOrd ered By: Sagn Bauer on 07-17-2022 HbA1c (Bld) [Mass fraction] 5.6 % 4.3-5.6 [facility] Comment on above: Increased risk for d iabetes: 5.7 - 6.4diabetes: >6.4glycemic control for adults with diabetes: <7.0 Hemoglobin [Mass/volume] in BloodOrdered By: Gayathri Leal on 07-17-2022 Hemoglobin (Bld) [Mass/Vol] 12.3 g/dL 13.0-17.0 [facility] Ketones Auto test strip (U) [Mass/Vol]Ordered By: Gayathri Leal on 07-17-2022 Ketones (U) [Mass/Vol] 2+ Negative Fi [facility] Laboratory - Chemistry and C hemistry - challengeOrdered By: Gayathri Leal on 07-17-2022 Natriuretic peptide B (Bld) [Mass/Vol] 116.0 pg/mL 5-100 [facility] Laboratory - CoagulationOrde red By: Gayathri Leal on 07-17-2022 PT Coag (PPP) [Time] 12.5 s 9.0-12.9 [facility] - Drug toxicology Ordered By: Gayathri Leal on 07-17-2022 Opiates Ql (U) Negative Negative [facility] - Hematology and Cell countsOrdered By: Gayathri Leal on 07-17-2022 Nucleated RBC/100 WBC (Bld) [Ratio] 0.1 % 0-0.5 [facility] - UrinalysisOrder ed By: Gayathri Leal on 07-17-2022 Hyaline casts LM Ql (Urine sed) None seen [LPF] 0-8 [facility] Leukocytes [#/volume] in Blo od by Automated countOrdered By: Gayathri Leal on 07-17-2022 WBC (Bld) [#/Vol] 7.8 10*3/uL 4.5-11.0 [facility] Lymphocytes Auto (Bld) [#/Vo l]Ordered By: Gayathri Leal on 07-17-2022 Lymphocytes (Bld) [#/Vol] 2.3 10*3/uL 1.00-4.8 [facility] Lymphocytes/100 WBC Auto (Bl d)Ordered By: Gayathri Leal on 07-17-2022 Lymphocytes/100 WBC (Bld) 29.5 % . [facility] MCH Auto (RBC) [Entitic mass ]Ordered By: Gayathri Leal on 07-17-2022 MCH (RBC) [Entitic mass] 30.2 pg 27.5-35.2 [facility] MCHC Auto (RBC) [Mass/Vol]Or dered By: Gayathri Leal on 07-17-2022 MCHC (RBC) [Mass/Vol] 33.1 g/dL 32.5-35.6 [facility] MCV Auto (RBC) [Entitic vol] Ordered By: Gayathri Leal on 07-17-2022 MCV (RBC) [Entitic vol] 91.5 fL 83.5-101 [facility] Monocyte %Ordered By: Zeinab Leal on 07-17-2022 Monocyte % 20 umol/L [facility] Monocytes Auto (Bld) [#/Vol] Ordered By: Gayathri Leal on 07-17-2022 Monocytes (Bld) [#/Vol] 0.4 10*3/uL 0.0-0.8 [facility] Monocytes/100 WBC Auto (Bld) Ordered By: Gayathri Leal on 07-17-2022 Monocytes/100 WBC (Bld) 5.4 % . [facility] Neutrophils Auto (Bld) [#/Vo l]Ordered By: Gayathri Leal on 07-17-2022 Neutrophils (Bld) [#/Vol] 4.9 10*3/uL 1.8-7.7 [facility] Neutrophils/100 WBC Auto (Bl d)Ordered By: Gayathri Leal on 07-17-2022 Neutrophils/100 WBC (Bld) 63.4 % . [facility] Nitrite Test strip Ql (U)Ord ered By: Gayathri Leal on 07-17-2022 Nitrite Ql (U) Negative Negative [facility] No Panel InformationOrdered By: Gayathri Leal on 07-17-2022 Estimated GFR () > 60 mL/Min [facility] Comment on above: GFR estimated refere nce range: According to KDOQI guidelines, <60 ml/min/1.73m2 is sufficient to diagnose a patient with chronic kidney disease. Pharmacy Creatinine Clearance (Chem N/A [facility] Phencyclidine Screen Ql (U)O rdered By: Gayathri Leal on 07-17-2022 Phencyclidine Ql (U) Negative Negative [facility] Platelet mean volume Auto (B ld) [Entitic vol]Ordered By: Gayathri Leal on 07-17-2022 Platelet mean volume (Bld) [Entitic vol] 10.2 fL 6.6-10.1 [facility] Platelet poor plasma interna tional normalized ratio (INR) by coagulation assay (relatOrdered By: Gayathri Leal on 07-17-2022 INR Coag (PPP) [Relative time] 1.1 {INR} [facility] Comment on above: INR Therapeutic Rang [...] 07-17-2022 Platelets (Bld) [#/Vol] 239 10*3/uL 150-450 [facility] Protein Auto test strip (U) [Mass/Vol]Ordered By: Gayathri Leal on 07-17-2022 Protein (U) [Mass/Vol] Negative Negative [facility] Protein [Mass/volume] in Ser um or PlasmaOrdered By: Gayathri Leal on 07-17-2022 Protein [Mass/Vol] 6.1 g/dL 6.1-7.9 [facility] RBC Auto (Bld) [#/Vol]Ordere d By: Gayathri Leal on 07-17-2022 RBC (Bld) [#/Vol] 4.07 10*6/uL 3.90-5.60 [facility] Serum or plasma alanine del valle otransferase measurement without P-5'-P (enzymatic activiOrdered By: Gayathri Leal on 07-17-2022 ALT No additional P-5'-P [Catalytic activity/Vol] 13 U/L 10-60 [facility] Serum or plasma albumin/glob ulin mass ratioOrdered By: Gayathri Leal on 07-17-2022 Albumin/Globulin [Mass ratio] 1.0 {ratio} [facility] Serum or plasma alkaline gail sphatase measurement (enzymatic activity/volume)Ordered By: Gayathri Leal on 07-17-2022 ALP [Catalytic activity/Vol] 37 U/L 32-92 [facility] Serum or plasma anion gap de terminationOrdered By: Gayathri Leal on 07-17-2022 Anion gap [Moles/Vol] 12.1 mmol/L 6.0-15.0 [facility] Serum or plasma aspartate am inotransferase measurement (enzymatic activity/volume)Ordered By: Gayathri Leal on 07-17-2022 AST [Catalytic activity/Vol] 15 U/L 10-42 [facility] Serum or plasma calcium deepti urement (mass/volume)Ordered By: Gayathri Leal on 07-17-2022 Calcium [Mass/Vol] 8.8 mg/dL 8.2-10.2 [facility] Serum or plasma chloride deepak surement (moles/volume)Ordered By: Gayathri Leal on 07-17-2022 Chloride [Moles/Vol] 108 mmol/L 95-114 [facility] Serum or plasma creatine kin ase MB (CKMB)/total creatine kinase (CK) ratio by calculaOrdered By: Gayathri Leal on 07-17-2022 CK.MB Calc [Catalytic fraction] 2.6 % 0.00-2.50 [facility] Serum or plasma creatine kin ase MB measurement (mass/volume)Ordered By: Gayathri Leal on 07-17-2022 CK.MB [Mass/Vol] 3.6 ng/mL 0.6-6.3 [facility] Serum or plasma glucose deepti urement (mass/volume)Ordered By: Gayathri Leal on 07-17-2022 Glucose [Mass/Vol] 91 mg/dL 70-100 [facility] Comment on above: ADA recommended refe rence rangeRandom Glucose Reference Range is dependent on time and content of last meal. Glucose of more than 200 mg/dL in a nonstressed, ambulatory subject supports the diagnosis of Diabetes Mellitus. Serum or plasma non-glucuron idated bilirubin measurement (mass/volume)Ordered By: Gayathri Leal on 07-17-2022 Bilirubin.indirect [Mass/Vol] TNP [facility] Comment on above: Test not performed Serum or plasma potassium me asurement (moles/volume)Ordered By: Gayathri Leal on 07-17-2022 Potassium [Moles/Vol] 4.0 mmol/L 3.5-5.1 [facility] Serum or plasma sodium measu rement (moles/volume)Ordered By: Gayathri Leal on 07-17-2022 Sodium [Moles/Vol] 139 mmol/L 136-146 [facility] Serum or plasma total biliru bin measurement (mass/volume)Ordered By: Gayathri Leal on 07-17-2022 Bilirubin [Mass/Vol] 0.8 mg/dL 0.3-1.2 [facility] Serum or plasma total carbon dioxide measurement (moles/volume)Ordered By: Gayathri Leal on 07-17-2022 CO2 [Moles/Vol] 22.9 mmol/L 22.0-30.0 [facility] Serum or plasma urea nitroge n measurement (mass/volume)Ordered By: Gayathri Leal on 07-17-2022 Urea nitrogen [Mass/Vol] 12 mg/dL 9-23 [facility] Specific gravity Auto test s trip (U) [Rel density]Ordered By: Gayathri Leal on 07-17-2022 Specific gravity (U) [Rel density] 1.024 1.001-1.03 0 [facility] Squamous epithelial cells de tection in urine sediment by light microscopyOrdered By: Gayathri Leal on 07-17-2022 Epithelial cells.squamous LM Ql (Urine sed) None seen [HPF] 0-2 [facility] Troponin I.cardiac [Mass/vol ume] in Serum or Plasma by High sensitivity methodOrdered By: Sang Bauer on 07-17-2022 Troponin I.cardiac High sensitivity method [Mass/Vol] 7 pg/mL 0-20 [facility] Urine bacteria detection by automated methodOrdered By: Gayathri Leal on 07-17-2022 Bacteria Auto Ql (U) None seen None Seen [facility] Urine clarity by refractomet ry automatedOrdered By: Gayathri Leal on 07-17-2022 Clarity Refractometry automated (U) Clear Clear [facility] Urine cocaine detectionOrder ed By: Gayathri Leal on 07-17-2022 Cocaine Ql (U) Negative Negative [facility] Urine glucose measurement by automated test strip (mass/volume)Ordered By: Gayathri Leal on 07-17-2022 Glucose Auto test strip (U) [Mass/Vol] Normal mg/dL Normal [facility] Urine hemoglobin detection b y automated test stripOrdered By: Gayathri Leal on 07-17-2022 Hemoglobin Auto test strip Ql (U) Negative Negative [facility] Urine leukocyte esterase det ection by automated test stripOrdered By: Gayathri Leal on 07-17-2022 Leukocyte esterase Auto test strip Ql (U) 1+ Negative [facility] Urobilinogen Auto test strip (U) [Mass/Vol]Ordered By: Gayathri Leal on 07-17-2022 Urobilinogen (U) [Mass/Vol] Normal mg/dL Normal [facility] pH Auto test strip (U)Ordere d By: Gayathri Leal on 07-17-2022 pH (U) 6.5 [pH] 5.0-9.0 [facility] AMMONIAon 07-16-2022 Ammonia (P) [Moles/Vol] 44 umol/L Critically high [facility] Comment on above: Performed By: #### A MM ####[facility] [address] [place], [place] [address]DrElizabeth Malone BNPon 07-16-2022 Natriuretic peptide B (Bld) [Mass/Vol] 236.0 pg/mL Normal <=900.0 [facility] Comment on above: Performed By: #### C MP, BNP ####[facility] [address] [place], [place] [address]Dr. Donna Malone CBC AUTO DIFFon 07-16-2022 BASO # 0.1 103/ul Normal 0.0-0.1 [facility] Comment on above: Performed By: #### C BC ####[facility] Svnck[address] [place], [place] [address]Dr. Donna Malone Basophils/100 WBC (Bld) 1.0 % Normal 0.2-2.0 [facility] Comment on above: Performed By: #### C BC ####[facility] Aqmb[address] [place], [place] [address]DrElizabeth Malone EO # 0.2 103/ul Normal 0.0-0.7 [facility] Comment on above: Performed By: #### C BC ####[facility] Foyxfpqqzm9[address] [place], [place] [address]DrElizabeth Malone Eosinophils/100 WBC (Bld) 3.3 % Normal 0.9-7.0 [facility] Comment on above: Performed By: #### C BC ####[facility] Cmtrgkrzmf[address] [place] [address]Dr. Donna Malone Erythrocyte distribution width (RBC) [Ratio] 15.1 % Critically high 11.0-15.0 [facility] Comment on above: Performed By: #### C BC ####[facility] Fnhpsqtgkx06[address] [place], [place] [address]Dr. Donna Malone Hematocrit (Bld) [Volume fraction] 36.1 % Critically low 42.0-54.0 [facility] Comment on above: Performed By: #### C BC ####[facility] Bdvmpfzqow69[address] [place], [place] [address]Dr. Donna Malone Hemoglobin (Bld) [Mass/Vol] 12.0 g/dL Critically low 14.0-18.0 [facility] Comment on above: Performed By: #### C BC ####[facility] Yruughgsmz[address] [place], [place] [address]Dr. Donna Malone IG # 0.01 10e3/ul Normal 0.00-0.03 [facility] Comment on above: Performed By: #### C BC ####[facility] Fzvglifrce[address] [place], [place] [address]Dr. Donna Malone IG % 0.2 % Normal 0.0-0.5 [facility] Comment on above: Performed By: #### C BC ####[facility] Adbvzldcgw[address] [place], [place] [address]Dr. Donna Malone LYMPH # 2.5 103/ul Normal 1.2-3.8 [facility] Comment on above: Performed By: #### C BC ####[facility] Kmatumrjyj[address] [place], [place] [address]Dr. Donna Malone Lymphocytes/100 WBC (Bld) 41.1 % Normal 20.5-60.0 [facility] Comment on above: Performed By: #### C BC ####[facility] Omebxjqpce[address] [place], [place] [address]Dr. Rubyyvan Malone MANUAL DIFF REQ NO Normal [facility] Comment on above: Performed By: #### C BC ####[facility] Cscmzscpal[address] [place] [address]Dr. Donna Faisal MCH (RBC) [Entitic mass] 30.6 pg Normal 25.9-34.0 [facility] Comment on above: Performed By: #### C BC ####[facility] Wgdwpqmhhv[address] [place] [address]Dr. Donna Faisal MCHC (RBC) [Mass/Vol] 33.2 g/dL Normal 29.9-35.2 [facility] Comment on above: Performed By: #### C BC ####[facility] Lyynjfrhgt[address] [place] [address]Dr. Donna Malone MCV (RBC) [Entitic vol] 92.1 fL Normal 80.0-94.0 [facility] Comment on above: Performed By: #### C BC ####[facility] Bxgjjfzwxm3[address] [place] [address]Dr. Donna Malone MONO # 0.5 103/ul Normal 0.3-0.8 [facility] Comment on above: Performed By: #### C BC ####[facility] Gwxxsntnkf[address] [place] [address]Dr. Donna Malone Monocytes/100 WBC (Bld) 7.4 % Normal 1.7-12.0 [facility] Comment on above: Performed By: #### C BC ####[facility] Tubbrmpjvb[address] [place] [address]DrElizabeth Malone NEUT # 2.9 103/ul Normal 1.4-6.5 [facility] Comment on above: Performed By: #### C BC ####[facility] Jggzronacm33[address] [place] [address]DrElizabeth Malone Neutrophils/100 WBC (Bld) 47.0 % Normal 43.0-75.0 [facility] Comment on above: Performed By: #### C BC ####[facility] Uguofsaqgy[address] [place], [place] [address]Dr. Donna Faisal Platelet mean volume (Bld) [Entitic vol] 11.4 fL Normal 9.5-13.5 [facility] Comment on above: Performed By: #### C BC ####[facility] Nerrwpfwqq[address] [place] [address]Dr. Donna Faisal PLT 206 103/ul Normal 150-450 [facility] Comment on above: Performed By: #### C BC ####[facility] Memmmsetwu29[address] [place] [address]Dr. Donna Malone RBC 3.92 106/ul Critically low 4.70-6.10 [facility] Comment on above: Performed By: #### C BC ####[facility] Zflokhuyid4[address] [place] [address]Dr. Donna Malone WBC 6.1 103/ul Normal 4.0-11.0 [facility] Comment on above: Performed By: #### C BC ####[facility] Neuxlwmzfh[address] [place] [address]DrElizabeth Malone ECHO LIMITED STUDYon 022 ECHO LIMITED STUDY Normal [facility] MRI BRAIN WO CONon 2 MRI BRAIN WO CON Normal [facility] PROF 14(COMP METB)on 022 Albumin [Mass/Vol] 2.8 g/dL Critically low 3.4-5.0 [facility] Comment on above: Performed By: #### C MP, BNP ####[facility] Cgidenoejb224[address] [place] [address]Dr. Donna Malone Albumin/Globulin [Mass ratio] 0.9 {ratio} Normal [facility] Comment on above: Performed By: #### C MP, BNP ####[facility] Midphawrma[address] [place] [address]Dr. Donna Malone ALP [Catalytic activity/Vol] 36 U/L Critically low 46-116 [facility] Comment on above: Performed By: #### C MP, BNP ####[facility] Dynjwvkqlk48[address] [place] [address]Dr. Donna Malone ALT [Catalytic activity/Vol] 13 U/L Critically low 16-63 [facility] Comment on above: Performed By: #### C MP, BNP ####[facility] Fjonusgsum3[address] [place], [place] [address]Dr. Donna Malone Anion gap [Moles/Vol] 10.4 mmol/L Normal [facility] Comment on above: Performed By: #### C MP, BNP ####[facility] Bmaigsttzs4[address] [place], [place] [address]Dr. Donna Faisal AST [Catalytic activity/Vol] 13 U/L Critically low 15-37 [facility] Comment on above: Performed By: #### C MP, BNP ####[facility] Dmhaeptaow6739[address] [place], [place] [address]Dr. Donna Malone Bilirubin [Mass/Vol] 0.3 mg/dL Normal 0.2-1.0 [facility] Comment on above: Performed By: #### C MP, BNP ####[facility] Wmhveprkgf3765[address] [place], [place] [address]Dr. Donna Malone Calcium [Mass/Vol] 8.2 mg/dL Critically low 8.5-10.1 [facility] Comment on above: Performed By: #### C MP, BNP ####[facility] Wcluzogkue[address] [place], [place] [address]Dr. Rubyyvan Malone Chloride [Moles/Vol] 108 mmol/L Critically high 98-107 [facility] Comment on above: Performed By: #### C MP, BNP ####[facility] Itkjkedfke0889[address] [place], [place] [address]Dr. Donna Malone CO2 [Moles/Vol] 25.5 mmol/L Normal 21.0-32.0 [facility] Comment on above: Performed By: #### C MP, BNP ####[facility] Pbiqsdxthj6837[address] [place], [place] [address]Dr. Donna Malone Creatinine [Mass/Vol] 0.92 mg/dL Normal 0.70-1.30 [facility] Comment on above: Performed By: #### C MP, BNP ####[facility] Jgqskyymbo337[address] [place], [place] [address]Dr. Donna Malone EGFR-AF SRI LANKAN >60 Normal >=60 [facility] Comment on above: Performed By: #### C MP, BNP ####[facility] Sshslvxljx0[address] [place] [address]Dr. Donna Malone EGFR-NON AF SRI LANKAN >60 Normal >=60 [facility] Comment on above: Performed By: #### C MP, BNP ####[facility] Yegkexejkq93[address] [place] [address]Dr. Donna Malone Globulin (S) [Mass/Vol] 3.2 g/dL Normal [facility] Comment on above: Performed By: #### C MP, BNP ####[facility] Xzolntfupj1097 [place] [address]Dr. Donna Faisal Glucose [Mass/Vol] 76 mg/dL Normal 74-106 [facility] Comment on above: Performed By: #### C MP, BNP ####[facility] Lpqivdejpt030[address] [place], [place] [address]Dr. Donna Malone Potassium [Moles/Vol] 3.9 mmol/L Normal 3.5-5.1 [facility] Comment on above: Performed By: #### C MP, BNP ####[facility] Bufcggkabl8462[address] [place], [place] [address]Dr. Donna Faisal Protein [Mass/Vol] 6.0 g/dL Critically low 6.4-8.2 [facility] Comment on above: Performed By: #### C MP, BNP ####[facility] Dvsgvhnvei64[address] [place], [place] [address]Dr. Donna Malone Sodium [Moles/Vol] 140 mmol/L Normal 136-145 [facility] Comment on above: Performed By: #### C MP, BNP ####[facility] Lfplefgzhf7[address] [place] [address]Dr. Donna Malone Urea nitrogen [Mass/Vol] 12.0 mg/dL Normal 7.0-18.0 [facility] Comment on above: Performed By: #### C MP, BNP ####[facility] Vdpkrdvgvz119[address] [place], [place] [address]Dr. Donna Malone Urea nitrogen/Creatinine [Mass ratio] 13.0 mg/mg Normal [facility] Comment on above: Performed By: #### C MP, BNP ####[facility] Hlwtmwwkae7166[address] [place], [place] [address]Dr. Donna Malone VIT B12 AND FOLATEon 022 Cobalamin (Vitamin B12) [Mass/Vol] 532.0 pg/mL Normal 193.0-986. 0 [facility] Comment on above: Performed By: #### B 12FOL ####[facility] Xilzbwosxl[address] [place], [place] [address]Dr. Donna Malone FOLATE 13.60 ng/mL Normal 8.60-58.90 [facility] Comment on above: Performed By: #### B 12FOL ####[facility] Injqxdchfq[address] [place], [place] [address]Dr. Donna Malone AMMONIAon 07-15-2022 Ammonia (P) [Moles/Vol] 23 umol/L Normal [facility] Comment on above: Performed By: #### A MM ####[facility] Bsowbhypsw[address] [place], [place] [address]Dr. Donna Malone BLOOD GASES BTYon 07-15-2022 02 MODE ROOM AIR Normal [facility] Comment on above: Performed By: #### A BG ####[facility] Rzwupjyzlf[address]82[address] [place], [place] [address]Dr. Donna Malone ALLENS TEST Positive Normal [facility] Comment on above: Performed By: #### A BG ####[facility] Ohgjzfdrhr[address] [place], [place] [address]Dr. Donna Malone Base excess Calc (Bld) [Moles/Vol] -1.3000 mmol/L Normal -2.0-2.0 [facility] Comment on above: Performed By: #### A BG ####[facility] Lkgejztddg6[address] [place], [place] [address]Dr. Donna Malone BIPAP PRESSURE Normal [facility] Comment on above: Performed By: #### A BG ####[facility] Nhfhtegxrd264[address] [place], [place] [address]Dr. Donna Malone CPAP Normal [facility] Comment on above: Performed By: #### A BG ####[facility] Jjqymsdrxj46[address] [place], [place] [address]Dr. Donna Malone FIO2 Normal [facility] Comment on above: Performed By: #### A BG ####[facility] Foofevtrel[address] [place], [place] [address]Dr. Donna Malone HCO3 (Bld) [Moles/Vol] 22.7 mmol/L Normal 22.0-26.0 [facility] Comment on above: Performed By: #### A BG ####[facility] Ffbbthyyur17[address] [place], [place] [address]Dr. Donna Malone LPM [facility] Comment on above: Performed By: #### A BG ####[facility] Jghswckqak3494[address] [place], [place] [address]Dr. Donna Malone MINUTE VOLUME Normal [facility] Comment on above: Performed By: #### A BG ####[facility] Fkgbuzebbb8[address] [place], [place] [address]Dr. Donna Malone Oxygen (Bld) [Partial pressure] 77.7 mm[Hg] Critically low 80.0-100.0 [facility] Comment on above: Performed By: #### A BG ####[facility] Wdjywhnyxd[address] [place], [place] [address]Dr. Donna Malone Oxygen saturation in Blood 95.9 % Normal 95.0-100.0 [facility] Comment on above: Performed By: #### A BG ####[facility] Uxdyvkjjqi5[address] [place], [place] [address]Dr. Donna Malone PCO2 33.0 mmHg Critically low 35.0-45.0 [facility] Comment on above: Performed By: #### A BG ####[facility] Xvxrfztfxy16[address] [place], [place] [address]Dr. Donna Malone PEEP [facility] Comment on above: Performed By: #### A BG ####[facility] Ltgyycanbc[address] [place], [place] [address]Dr. Donna Malone pH (Bld) 7.446 [pH] Normal 7.350-7.[address] [place] [address] Comment on above: Performed By: #### A BG ####[facility] Iveikhvskr[address] [place] [address]Dr. Donna Malone PIP [facility] Comment on above: Performed By: #### A BG ####[facility] Adnbtnflvx1827 [place] [address]Dr. Donna Malone PS [facility] Comment on above: Performed By: #### A BG ####[facility] Voljvgrbfu9947 [place] [address]Dr. Donna Malone PUNCTURE SITE RB [facility] Comment on above: Performed By: #### A BG ####[facility] Msfwvdggxu3327 [place] [address]Dr. Donna Malone RATE [facility] Comment on above: Performed By: #### A BG ####[facility] Smenpfualh[address] [place], [place] [address]Dr. Donna Malone VENT MODE [facility] Comment on above: Performed By: #### A BG ####[facility] Dmjmqofqnu54[address] [place], [place] [address]Dr. Donna Malone VT [facility] Comment on above: Performed By: #### A BG ####[facility] Bkqkvmeuje0240 [place] [address]Dr. Donna Malone BNPon 07-15-2022 Natriuretic peptide B (Bld) [Mass/Vol] 111.0 pg/mL Normal <=900.0 [facility] Comment on above: Performed By: #### B BINDER SORTER, CMP, CMADM ####[facility] Hbqoydbmbd2074 [place] [address]Dr. Donna Malone CARDIAC MJ 3-6on 2 CK [Catalytic activity/Vol] 102 U/L Normal 39-308 [facility] Comment on above: Performed By: #### C MREP ####[facility] Dtktrdcuav95[address] [place], [place] [address]Dr. Donna Malone CK.MB [Mass/Vol] 3.67 ng/mL Critically high <=3.60 [facility] Comment on above: Performed By: #### C MREP ####[facility] Yozvgmhsvj40[address] [place] [address]Dr. Donna Malone HSTROP 13.1 pg/mL Normal 4.0-76.1 [facility] Comment on above: Result Comment: CUT- OFF POINTS HAVE BEEN ESTABLISHED BASED ON THE FOURTH UNIVERSAL DEFINITIONS OF MYOCARDIALINFARCTION. THE UPPER REFERENCE LIMIT (URL) OF TROPONIN, DEFINED THE 99TH PERCENTILE OFcTnI DISTRIBUTION IN A REFERENCE POPULATION, HAS BEEN CONFIRMED THE DECISION THRESHOLDFOR [place] DIAGNOSIS. Performed By: #### C MREP ####[facility] Mlcdgdwcdl[address] [place] [address]Dr. Donna Malone CK [Catalytic activity/Vol] 89 U/L Normal 39-308 [facility] Comment on above: Performed By: #### C MREP ####[facility] Owqanskixh5[address] [place] [address]Dr. Donna Malone CK.MB [Mass/Vol] 3.37 ng/mL Normal <=3.60 [facility] Comment on above: Performed By: #### C MREP ####[facility] Nvgbmpaiab[address] [place], [place] [address]Dr. Rubyyvan Malone HSTROP 11.2 pg/mL Normal 4.0-76.1 [facility] Comment on above: Result Comment: CUT- OFF POINTS HAVE BEEN ESTABLISHED BASED ON THE [facility] UNIVERSAL DEFINITIONS OF MYOCARDIALINFARCTION. THE UPPER REFERENCE LIMIT (URL) OF TROPONIN, DEFINED THE 99TH PERCENTILE OFcTnI DISTRIBUTION IN A REFERENCE POPULATION, HAS BEEN CONFIRMED THE DECISION THRESHOLDFOR [place] DIAGNOSIS. Performed By: #### C MREP ####[facility] Ziilzvymdg668[address] [place] [address]Dr. Donna Malone CARDIAC MJ ADMITon 022 CK [Catalytic activity/Vol] 76 U/L Normal 39-308 [facility] Comment on above: Performed By: #### B BINDER SORTER, CMP, CMADM ####[facility] Umckyaimuu[address] [place] [address]Dr. Donna Malone CK.MB [Mass/Vol] 2.59 ng/mL Normal <=3.60 [facility] Comment on above: Performed By: #### B BINDER SORTER, CMP, CMADM ####[facility] Pyhqoagpma58[address] [place] [address]Dr. Donna Malone HSTROP 10.1 pg/mL Normal 4.0-76.1 [facility] Comment on above: Result Comment: CUT- OFF POINTS HAVE BEEN ESTABLISHED BASED ON THE FOURTH UNIVERSAL DEFINITIONS OF MYOCARDIALINFARCTION. THE UPPER REFERENCE LIMIT (URL) OF TROPONIN, DEFINED THE 99TH PERCENTILE OFcTnI DISTRIBUTION IN A REFERENCE POPULATION, HAS BEEN CONFIRMED THE DECISION THRESHOLDFOR [place] DIAGNOSIS. Performed By: #### B BINDER SORTER, CMP, CMADM ####[facility] Xxwbipvoex7[address] [place] [address]Dr. Donna Malone BINDU 109 ng/mL Critically high 16-96 [facility] Comment on above: Performed By: #### B BINDER SORTER, CMP, CMADM ####[facility] Cdlcutsblu6076 [place] [address]Dr. Donna Malone CBC AUTO DIFFon 07-15-2022 BASO # 0.0 103/ul Normal 0.0-0.1 [facility] Comment on above: Performed By: #### C BC ####[facility] Crnnxcsnpt6104 [place] [address]Dr. Donna Malone Basophils/100 WBC (Bld) 0.7 % Normal 0.2-2.0 [facility] Comment on above: Performed By: #### C BC ####[facility] Fhmuogimta11[address] [place] [address]Dr. Donna Malone EO # 0.1 103/ul Normal 0.0-0.7 [facility] Comment on above: Performed By: #### C BC ####[facility] Ktredqtzmv4516 [place] [address]Dr. Donna Malone Eosinophils/100 WBC (Bld) 2.3 % Normal 0.9-7.0 [facility] Comment on above: Performed By: #### C BC ####[facility] Cofuggmykb[address] [place], [place] [address]Dr. Donna Malone Erythrocyte distribution width (RBC) [Ratio] 15.2 % Critically high 11.0-15.0 [facility] Comment on above: Performed By: #### C BC ####[facility] Okzehqvybv030[address] [place], [place] [address]Dr. Donna Malone Hematocrit (Bld) [Volume fraction] 34.8 % Critically low 42.0-54.0 [facility] Comment on above: Performed By: #### C BC ####[facility] Eofkbprgon[address] [place], [place] [address]Dr. Donna Malone Hemoglobin (Bld) [Mass/Vol] 11.4 g/dL Critically low 14.0-18.0 [facility] Comment on above: Performed By: #### C BC ####[facility] Jfgrqlgith[address] [place], [place] [address]Dr. Donna Malone IG # 0.01 10e3/ul Normal 0.00-0.03 [facility] Comment on above: Performed By: #### C BC ####[facility] Fdswjejayi34[address] [place], [place] [address]Dr. Donna Malone IG % 0.2 % Normal 0.0-0.5 [facility] Comment on above: Performed By: #### C BC ####[facility] Zycvjdokid99[address] [place], [place] [address]Dr. Donna Malone LYMPH # 1.6 103/ul Normal 1.2-3.8 [facility] Comment on above: Performed By: #### C BC ####[facility] Wdwleszota[address] [place], [place] [address]Dr. Donna Malone Lymphocytes/100 WBC (Bld) 26.4 % Normal 20.5-60.0 [facility] Comment on above: Performed By: #### C BC ####[facility] Sffkvjvgjc01[address] [place], [place] [address]Dr. Donna Malone MANUAL DIFF REQ NO Normal [facility] Comment on above: Performed By: #### C BC ####[facility] Potarutsfd[address] [place], [place] [address]Dr. Donna Faisal MCH (RBC) [Entitic mass] 30.7 pg Normal 25.9-34.0 [facility] Comment on above: Performed By: #### C BC ####[facility] Geokgkdvln14[address] [place] [address]Dr. Donna Malone MCHC (RBC) [Mass/Vol] 32.8 g/dL Normal 29.9-35.2 [facility] Comment on above: Performed By: #### C BC ####[facility] Ikwferaxoa7058 [place] [address]Dr. oDnna Faisal MCV (RBC) [Entitic vol] 93.8 fL Normal 80.0-94.0 [facility] Comment on above: Performed By: #### C BC ####[facility] Xgnogearcd2918 [place] [address]Dr. Rubyyvan Malone MONO # 0.5 103/ul Normal 0.3-0.8 [facility] Comment on above: Performed By: #### C BC ####[facility] Vncvptorgv3870 [place] [address]Dr. Rubyyvan Malone Monocytes/100 WBC (Bld) 7.5 % Normal 1.7-12.0 [facility] Comment on above: Performed By: #### C BC ####[facility] Efygggtwxw4556 [place] [address]Dr. Donna Malone NEUT # 3.8 103/ul Normal 1.4-6.5 [facility] Comment on above: Performed By: #### C BC ####[facility] Sakthlfanb12[address] [place] [address]Dr. Rubyyvan Malone Neutrophils/100 WBC (Bld) 62.9 % Normal 43.0-75.0 [facility] Comment on above: Performed By: #### C BC ####[facility] Cabxfmzgbm6254 [place] [address]Dr. Rubyyvan Malone Platelet mean volume (Bld) [Entitic vol] 11.7 fL Normal 9.5-13.5 [facility] Comment on above: Performed By: #### C BC ####[facility] Baqbagnpdm4721 [place], [place] [address]Aw. Donna Malone PLT 220 103/ul Normal 150-450 [facility] Comment on above: Performed By: #### C BC ####[facility] Iquxoobowk1219 [place], [place] [address]Ov. Donna Malone RBC 3.71 106/ul Critically low 4.70-6.10 [facility] Comment on above: Performed By: #### C BC ####[facility] Vknmukfndj0809 [place], [place] [address]Mz. Donna Malone WBC 6.0 103/ul Normal 4.0-11.0 [facility] Comment on above: Performed By: #### C BC ####[facility] Fhmcmstemd8806 [place], [place] [address]Vk. [address] CSPINE WO CONon 2 CT CSPINE WO CON Normal [facility] CT HEAD WO CONon 07-15-2022 CT HEAD WO CON Normal [facility] CTA NECK WO W CONon 07-15-20 CTA NECK WO W CON Normal [facility] CULTURE URINEon 07-15-2022 CULTURE URINE Culture Observations : LIGHT GROWTH OF MIXED SKIN MICHAEL. NO POTENTIAL PATHOGENS SEEN. Normal [facility] Comment on above: Performed By: #### U RCX ####[facility] Vyzpshodly9892 [place], [place] [address]Wp. Donna Malone Covid-19 PCR (CVDTB)on SARS-CoV-2 (COVID-19) RNA JOSÉ MIGUEL+probe Ql (Unsp spec) Not detected Normal NOT DETECTED [facility] Comment on above: Result Comment: When diagnostic [...] for this test is supported by the [place] of Health and Human Service's declaration that [...] be used). Performed By: #### C VDTBH ####[facility] Rdyfzmrwik26[address] [place] [address]Dr. Donna Malone DEPAKENE/VALPROICon 07-15-20 DEPAKENE 53.6 ug/ml Normal 50.0-100.0 [facility] Comment on above: Performed By: #### V ALP ####[facility] Fmsbhimwfm8[address] [place], [place] [address]Dr. Donna Malone DRUG SCREEN RAPID (URINE)on 07-15-2022 AMP Negative Normal NEGATIVE [facility] Comment on above: Performed By: #### Calvin TABOR, ERUR ####[facility] Gkzgekejld[address] [place], [place] [address]Dr. Donna Malone BAR Negative Normal NEGATIVE [facility] Comment on above: Performed By: #### Calvin TABOR, ERUR ####[facility] Xawrropzqh[address] [place], [place] [address]Dr. Donna Malone BUP Negative Normal NEGATIVE [facility] Comment on above: Performed By: #### D SHARONA, ERUR ####[facility] Nxofyiyyoh[address] [place], [place] [address]Dr. Donna Malone BZO Positive Abnormal NEGATIVE [facility] Comment on above: Performed By: #### D SHARONA, ERUR ####[facility] Tetbcljjaq[address] [place], [place] [address]Dr. Donna Malone EVONNE Negative Normal NEGATIVE [facility] Comment on above: Performed By: #### Calvin TABOR, ERUR ####[facility] Mlvalabzhe3[address] [place], [place] [address]Dr. Donna Malone CUT-OFFS SEE BELOW Normal [facility] Comment on above: Result Comment: AMP (Amphetamine): 500ng/mL, BAR (Barbituates): 200 ng/mL, BZO (Benzodiazepines): 150 ng/mL, BUP (Buprenorphine): 10 ng/mL, EVONNE (Cocaine): 150 ng/mL, mAMP (Methamphetamine): 500 ng/mL, MTD (Methadone): 200 ng/mL, OPI (Opiates): 100 ng/mL, OXY (Oxycodone): 100 ng/mL, PCP (Phencyclidine): 25 ng/mL, PPX (Propoxyphene): 300 ng/mL, THC (Cannabinoids): 50 ng/mL, TCA (Trycyclic Antidepressants): 300 ng/mL Performed By: #### Calvin TABOR, ERUR ####[facility] Npswikjdjn65[address] [place], [place] [address]Dr. Donna Malone DRUG CUT HEADER DRUG CLASS TEST SYST EM CUT-OFF CONCENTRATIONS ARE FOLLOWS: Normal [facility] Comment on above: Performed By: #### Calvin TABOR, ERUR ####[facility] Uyramvnyqf[address] [place], [place] [address]Dr. Donna Malone mAMP Negative Normal NEGATIVE [facility] Comment on above: Performed By: #### Calvin TABOR, ERUR ####[facility] Onxarxpnwv8[address] [place], [place] [address]Dr. Donna Malone MTD Negative Normal NEGATIVE [facility] Comment on above: Performed By: #### Calvin HARRYD, ERUR ####[facility] Tjowcokmnh[address] [place], [place] [address]Dr. Donna Malone OPI Negative Normal NEGATIVE [facility] Comment on above: Performed By: #### Calvin HARRYD, ERUR ####[facility] Rrhzmflyrm[address] [place] [address]Dr. Donna Malone OXY Negative Normal NEGATIVE [facility] Comment on above: Performed By: #### Calivn HARRYD, ERUR ####[facility] Rxvjvldfvd[address] [place], [place] [address]Dr. Donna Malone PCP Negative Normal NEGATIVE [facility] Comment on above: Performed By: #### Calvin TABOR, ERUR ####[facility] Cbovrlmgny[address] [place], [place] [address]Dr. Donna Malone PPX Negative Normal NEGATIVE [facility] Comment on above: Performed By: #### Calvin TABOR, ERUR ####[facility] Xxtnnwicvc22[address] [place] [address]Dr. Donna Faisal TCA Positive Abnormal NEGATIVE [facility] Comment on above: Performed By: #### Calvin TABOR, ERUR ####[facility] Dhgfijzbkh8[address] [place] [address]Dr. Donna Faisal THC Negative Normal NEGATIVE [facility] Comment on above: Performed By: #### Calvin TABOR, ERUR ####[facility] Cxrfjfaazz[address] [place], [place] [address]Dr. Donna Malone ER URINE PROFILEon 2 Bilirubin Ql (U) Negative Normal NEGATIVE [facility] Comment on above: Performed By: #### Calvin TABOR, ERUR ####[facility] Dunepvjhnw[address] [place], [place] [address]Dr. Donna Malone Clarity (U) CLEAR Normal CLEAR [facility] Comment on above: Performed By: #### Calvin TABOR, ERUR ####[facility] Zvsvljwawg[address] [place], [place] [address]Dr. Donna Malone Color (U) YELLOW Normal YELLOW [facility] Comment on above: Performed By: #### Calvin TABOR, ERUR ####[facility] Hnunaouvgc[address] [place], [place] [address]Dr. Donna Malone ERUAHD A micrscopic examina tion will be performed if indicated. Normal [facility] Comment on above: Performed By: #### Calvin TABOR, ERUR ####[facility] Unafaybiax[address] [place], [place] [address]Dr. Donna Malone Glucose Ql (U) Negative Normal NEGATIVE [facility] Comment on above: Performed By: #### Calvin TABOR, ERUR ####[facility] [address] [place] [address]Dr. Donna Malone Hemoglobin Ql (U) Negative Normal NEGATIVE [facility] Comment on above: Performed By: #### Calvin TABOR, ERUR ####[facility] Jaaz[address]coxe[address] [place] [address]Dr. Donna Malone Ketones Ql (U) 15 mg/dl Abnormal NEGATIVE [facility] Comment on above: Performed By: #### D SHARONA ERUR ####[facility] J[address]fakifyu[address] [place] [address]Dr. Donna Faisal LEUKOCYTES Negative Normal NEGATIVE [facility] Comment on above: Performed By: #### Calvin TABOR ERUR ####[facility] Craqvxckon[address] [place] [address]Dr. Rubyyvan Malone Nitrite Ql (U) Negative Normal NEGATIVE [facility] Comment on above: Performed By: #### WESLY LAUR ####[facility] Vzchrpkyly[address] [place], [place] [address]Dr. Donna Malone pH (U) 6.0 [pH] Normal 5-9 [facility] Comment on above: Performed By: #### WESLY LAUR ####[facility] Pmzuojjswr[address] [place], [place] [address]Dr. Donna Malone SPEC GRAVITY >=1.030 Abnormal 1.005-<=1. 025 [facility] Comment on above: Performed By: #### WESLY LAUR ####[facility] Dlonnmugqv[address] [place], [place] [address]Dr. Donna Malone UA PROTEIN TRACE Normal NEGATIVE/ TRACE [facility] Comment on above: Performed By: #### Calvin TABOR ERUR ####[facility] [address]ops[address] [place] [address]Dr. Donna Malone UR MICRO IND NOT INDICATED Normal [facility] Comment on above: Performed By: #### WESLY LAUR ####[facility] Ekizgqosgw[address] [place], [place] [address]Dr. Donna Malone Urobilinogen Qn (U) 0.2 {Jermain'U}/dL Normal 0.2 - 1. 0 [facility] Comment on above: Performed By: #### Calvin TABOR ERUR ####[facility] Yas[address] [place] [address]Dr. Donna Malone ETHANOL (BLD ALC)on 07-15-20 22 ALC NOTE NOTE: 80 mg/dl is th e legal limit for a blood alcohol level Normal [facility] Comment on above: Performed By: #### E TH ####[facility] Vywquateei[address] [place], [place] [address]Dr. Donna Malone Ethanol [Mass/Vol] mg/dL Normal [facility] Comment on above: Performed By: #### E TH ####[facility] Xknjwpeyka[address] [place], [place] [address]Dr. Donna Malone LACTATE/LACTIC ACIDon 2021 Lactate [Moles/Vol] 1.3 mmol/L Normal 0.4-1.9 [facility] Comment on above: Performed By: #### L ACT ####[facility] Zzcahlsucj[address] [place], [place] [address]Dr. Donna Malone PROF 14(COMP METB)on 022 Albumin [Mass/Vol] 2.9 g/dL Critically low 3.4-5.0 [facility] Comment on above: Performed By: #### B BINDER SORTER, CMP, CMADM ####[facility] Fpaygjxztf9[address] [place], [place] [address]Dr. Donna Malone Albumin/Globulin [Mass ratio] 0.9 {ratio} Normal [facility] Comment on above: Performed By: #### B BINDER SORTER, CMP, CMADM ####[facility] Sgyfwqvrkd6[address] [place], [place] [address]Dr. Donna Malone ALP [Catalytic activity/Vol] 37 U/L Critically low 46-116 [facility] Comment on above: Performed By: #### B BINDER SORTER, CMP, CMADM ####[facility] Gzypivpyan[address] [place], [place] [address]Dr. Donna Malone ALT [Catalytic activity/Vol] 10 U/L Critically low 16-63 [facility] Comment on above: Performed By: #### B BINDER SORTER, CMP, CMADM ####[facility] Wczlbrrxul47[address] [place], [place] [address]Dr. Donna Malone Anion gap [Moles/Vol] 8.0 mmol/L Normal [facility] Comment on above: Performed By: #### B BINDER SORTER, CMP, CMADM ####[facility] Boimdtmuzo[address] [place] [address]Dr. Donna Malone AST [Catalytic activity/Vol] 12 U/L Critically low 15-37 [facility] Comment on above: Performed By: #### B BINDER SORTER, CMP, CMADM ####[facility] Arahhzucmy[address] [place] [address]Dr. Donna Malone Bilirubin [Mass/Vol] 0.3 mg/dL Normal 0.2-1.0 [facility] Comment on above: Performed By: #### B BINDER SORTER, CMP, CMADM ####[facility] H[address]zqbeagcq[address] [place] [address]Dr. Donna Malone Calcium [Mass/Vol] 7.9 mg/dL Critically low 8.5-10.1 [facility] Comment on above: Performed By: #### B BINDER SORTER, CMP, CMADM ####[facility] Xgshwhnxwi4[address] [place] [address]Dr. Donna Malone Chloride [Moles/Vol] 107 mmol/L Normal 98-107 [facility] Comment on above: Performed By: #### B BINDER SORTER, CMP, CMADM ####[facility] Hrcisjsxen3[address] [place] [address]Dr. Donna Malone CO2 [Moles/Vol] 27.1 mmol/L Normal 21.0-32.0 [facility] Comment on above: Performed By: #### B BINDER SORTER, CMP, CMADM ####[facility] Zfvezqkncm[address] [place] [address]Dr. Donna Malone Creatinine [Mass/Vol] 0.99 mg/dL Normal 0.70-1.30 [facility] Comment on above: Performed By: #### B BINDER SORTER, CMP, CMADM ####[facility] Lwmgzefnlu[address] [place] [address]Dr. Donna Malone EGFR-AF SRI LANKAN >60 Normal >=60 [facility] Comment on above: Performed By: #### B BINDER SORTER, CMP, CMADM ####[facility] Stdoauwhxh[address] [place] [address]Dr. Donna Malone EGFR-NON AF SRI LANKAN >60 Normal >=60 [facility] Comment on above: Performed By: #### B BINDER SORTER, CMP, CMADM ####[facility] Hpyzunsmbd37[address] [place] [address]Dr. Donna Malone Globulin (S) [Mass/Vol] 3.3 g/dL Normal [facility] Comment on above: Performed By: #### B BINDER SORTER, CMP, CMADM ####[facility] Ifntvmkhrc28[address] [place] [address]Dr. Donna Malone Glucose [Mass/Vol] 101 mg/dL Normal 74-106 [facility] Comment on above: Performed By: #### B BINDER SORTER, CMP, CMADM ####[facility] Xwalcuhwvu59[address] [place] [address]Dr. Donna Malone Potassium [Moles/Vol] 4.1 mmol/L Normal 3.5-5.1 [facility] Comment on above: Performed By: #### B BINDER SORTER, CMP, CMADM ####[facility] Ybvosqmmbz[address] [place] [address]Dr. Donna Malone Protein [Mass/Vol] 6.2 g/dL Critically low 6.4-8.2 [facility] Comment on above: Performed By: #### B BINDER SORTER, CMP, CMADM ####[facility] Bamfkwbtgk[address] [place] [address]Dr. Donna Malone Sodium [Moles/Vol] 138 mmol/L Normal 136-145 [facility] Comment on above: Performed By: #### B BINDER SORTER, CMP, CMADM ####[facility] Xjjbidtwgr4352 [place] [address]Dr. Donna Malone Urea nitrogen [Mass/Vol] 16.0 mg/dL Normal 7.0-18.0 [facility] Comment on above: Performed By: #### B BINDER SORTER, CMP, CMADM ####[facility] Cbyrkokphh[address] [place] [address]Dr. Donna Malone Urea nitrogen/Creatinine [Mass ratio] 16.2 mg/mg Normal [facility] Comment on above: Performed By: #### B BINDER SORTER, CMP, CMADM ####[facility] Hjfdiwiukp[address] [place], [place] [address]DrElizabeth Malone PROTIMEon 07-15-2022 INR Coag (PPP) [Relative time] 1.06 {INR} Normal [facility] Comment on above: Performed By: #### P T, PTT ####[facility] Zeamriorko[address] [place], [place] [address]DrElizabeth Malone INR GUIDELINES SEE BELOW Normal [facility] Comment on above: Result Comment: FLORESITA RED INR: 2.0 - 3.0 CONDITIONS NOT LISTED BELOW 2.5 - 3.5 FOR PROSTHETIC HEART VALVE REPLACEMENT 2.5 - 3.5 RECURRENT THROMBOSIS Performed By: #### P T, PTT ####[facility] Hvazedmodu23[address] [place], [place] [address]DrElizabeth Malone PT Coag (PPP) [Time] 11.4 s Normal 9.0-11.6 [facility] Comment on above: Performed By: #### P T, PTT ####[facility] Xtajzyxedp[address] [place], [place] [address]DrElizabeth Malone PTTon 07-15-2022 aPTT Coag (Bld) [Time] 30.8 s Normal 22.3-36.2 [facility] Comment on above: Performed By: #### P T, PTT ####[facility] Kefpzitphg[address] [place], [place] [address]DrElizabeth Malone XR CHEST 1 Von 07-15-2022 XR CHEST 1 V Normal [facility] CULTURE URINEon 06-24-2022 CULTURE URINE Normal [facility] Comment on above: Performed By: #### U RCX ####[facility] Ibekqexksu9030[address] [place], [place] [address]DrElizabeth Malone UA RANDOM W/MICROSCOPICon BACTERIA NONE SEEN Normal NONE SEEN [facility] Comment on above: Performed By: #### U AMIC ####[facility] Zvucvirjtj[address] [place], [place] [address]DrElizabeth Malone Bilirubin Ql (U) Negative Normal NEGATIVE [facility] Comment on above: Performed By: #### U AMIC ####[facility] Zwihzcrypz[address] [place], [place] [address]Dr. Donna Malone CAST NONE SEEN Normal NONE SEEN [facility] Comment on above: Performed By: #### U AMIC ####[facility] Sxfwpfugfl[address] [place], [place] [address]Dr. Donna Malone Clarity (U) CLEAR Normal CLEAR [facility] Comment on above: Performed By: #### U AMIC ####[facility] Wuibqalheh[address] [place], [place] [address]Dr. Donna Malone Color (U) DK. YELLOW Normal YELLOW [facility] Comment on above: Performed By: #### U AMIC ####[facility] Dwwrwsbfwy[address] [place], [place] [address]Dr. Donna Malone Crystals LM Nom (Urine sed) NONE SEEN Normal NONE SEEN [facility] Comment on above: Performed By: #### U AMIC ####[facility] Tjhbcrsgox35[address] [place], [place] [address]Dr. Donna Malone Epithelial cells LM Ql (Urine sed) NONE SEEN Normal NONE SEEN /RARE [facility] Comment on above: Performed By: #### U AMIC ####[facility] Kaoncphsmo0[address] [place], [place] [address]Dr. Donna Malone Glucose Ql (U) 100 mg/dl Abnormal NEGATIVE [facility] Comment on above: Performed By: #### U AMIC ####[facility] Afqphykgvq[address] [place], [place] [address]Dr. Donna Malone Hemoglobin Ql (U) Negative Normal NEGATIVE [facility] Comment on above: Performed By: #### U AMIC ####[facility] Lwcglmbwjg[address] [place], [place] [address]Dr. Donna Malone Ketones Ql (U) TRACE Abnormal NEGATIVE [facility] Comment on above: Performed By: #### U AMIC ####[facility] Osfuigzxyg[address] [place], [place] [address]Dr. Donna Malone LEUKOCYTES Negative Normal NEGATIVE [facility] Comment on above: Performed By: #### U AMIC ####[facility] Z[address]azdjkh[address] [place] [address]Dr. Donna Malone MUCOUS SMALL Abnormal NONE SEEN [facility] Comment on above: Performed By: #### U AMIC ####[facility] Zlijrfubjk68[address] [place] [address]Dr. Donna Malone Nitrite Ql (U) Negative Normal NEGATIVE [facility] Comment on above: Performed By: #### U AMIC ####[facility] Kjhwckervb[address] [place] [address]Dr. Donna Malone pH (U) 6.0 [pH] Normal 5-9 [facility] Comment on above: Performed By: #### U AMIC ####[facility] Ecfqfqvspx[address] [place] [address]Dr. Donna Malone RBC NONE SEEN Abnormal 0-2 [facility] Comment on above: Performed By: #### U AMIC ####[facility] Xdrpmafwhr[address] [place], [place] [address]Dr. Donna Malone SPEC GRAVITY 1.030 Abnormal 1.005-<=1. 025 [facility] Comment on above: Performed By: #### U AMIC ####[facility] Ooimmdgzqi[address] [place], [place] [address]Dr. Donna Malone UA PROTEIN Negative Normal NEGATIVE/ TRACE [facility] Comment on above: Performed By: #### U AMIC ####[facility] Zxxcqyddvx[address] [place], [place] [address]Dr. Donna Malone Urobilinogen Qn (U) 0.2 {Jermain'U}/dL Normal 0.2 - 1. 0 [facility] Comment on above: Performed By: #### U AMIC ####[facility] Hfmyxyhgod[address] [place], [place] [address]Dr. Donna Malone WBC 2-5 Abnormal NONE SEEN [facility] Comment on above: Performed By: #### U AMIC ####[facility] Gwliuptoag[address] [place], [place] [address]Dr. Donna Malone COMPLIANCE DRUG SCREENon PDF . Normal [facility] Comment on above: Performed By: #### D SDOALC ####[facility] Yqvaysgloc[address] [place], [place] [address]CnElizabeth Donna Faisal Summary FINAL Normal [facility] Comment on above: Result Comment: =====TOXASSURE [...] call . Performed By: #### D SDOALC ####[facility] Omhqyytadq1310 [place], [place] [address]ObElizabeth Malone CBC AUTO DIFFon 05-16-2022 BASO # 0.0 103/ul Normal 0.0-0.1 [facility] Comment on above: Performed By: #### C BC ####[facility] Xlrcpxdyor9796 [place], [place] [address]WqElizabeth Malone Basophils/100 WBC (Bld) 0.4 % Normal 0.2-2.0 [facility] Comment on above: Performed By: #### C BC ####[facility] Nys[address]untvoj[address] [place] [address]Dr. Donna Malone EO # 0.1 103/ul Normal 0.0-0.7 [facility] Comment on above: Performed By: #### C BC ####[facility] Pdhyxsvshi[address] [place], [place] [address]Dr. Rubyyvan Malone Eosinophils/100 WBC (Bld) 0.9 % Normal 0.9-7.0 [facility] Comment on above: Performed By: #### C BC ####[facility] Wwebrucjal[address] [place], [place] [address]Dr. Rubyyvan Malone Erythrocyte distribution width (RBC) [Ratio] 14.9 % Normal 11.0-15.0 [facility] Comment on above: Performed By: #### C BC ####[facility] Aolktyjbix0[address] [place], [place] [address]Dr. Donna Malone Hematocrit (Bld) [Volume fraction] 41.0 % Critically low 42.0-54.0 [facility] Comment on above: Performed By: #### C BC ####[facility] Fpwqgakjgn9[address] [place], [place] [address]Dr. Donna Malone Hemoglobin (Bld) [Mass/Vol] 13.3 g/dL Critically low 14.0-18.0 [facility] Comment on above: Performed By: #### C BC ####[facility] Dhtskkebpp[address] [place], [place] [address]Dr. Donna Malone IG # 0.03 10e3/ul Normal 0.00-0.03 [facility] Comment on above: Performed By: #### C BC ####[facility] Ynfgvsdoji[address] [place], [place] [address]Dr. Donna Malone IG % 0.3 % Normal 0.0-0.5 [facility] Comment on above: Performed By: #### C BC ####[facility] Axdodxpnej8[address] [place], [place] [address]DrElizabeth Malone LYMPH # 1.4 103/ul Normal 1.2-3.8 [facility] Comment on above: Performed By: #### C BC ####[facility] Wioqchilyp[address] [place] [address]Dr. Donna Malone Lymphocytes/100 WBC (Bld) 15.3 % Critically low 20.5-60.0 [facility] Comment on above: Performed By: #### C BC ####[facility] Wuvewnodyz[address] [place] [address]DrElizabeth Malone MANUAL DIFF REQ NO Normal [facility] Comment on above: Performed By: #### C BC ####[facility] Ymojcvpbrb85[address] [place] [address]Dr. Donna Malone MCH (RBC) [Entitic mass] 29.4 pg Normal 25.9-34.0 [facility] Comment on above: Performed By: #### C BC ####[facility] Xqsvzdwbhe25[address] [place], [place] [address]Dr. Donna Malone MCHC (RBC) [Mass/Vol] 32.4 g/dL Normal 29.9-35.2 [facility] Comment on above: Performed By: #### C BC ####[facility] Csclbawqzt[address] [place], [place] [address]DrElizabeth Malone MCV (RBC) [Entitic vol] 90.5 fL Normal 80.0-94.0 [facility] Comment on above: Performed By: #### C BC ####[facility] Fqefjmrccg[address] [place], [place] [address]Dr. Donna Malone MONO # 0.8 103/ul Normal 0.3-0.8 [facility] Comment on above: Performed By: #### C BC ####[facility] Rkcqejulfw[address] [place], [place] [address]Dr. Donna Malone Monocytes/100 WBC (Bld) 8.7 % Normal 1.7-12.0 [facility] Comment on above: Performed By: #### C BC ####[facility] Tjjxrghari23[address] [place], [place] [address]DrElizabeth Malone NEUT # 6.9 103/ul Critically high 1.4-6.5 [facility] Comment on above: Performed By: #### C BC ####[facility] Wfdelkcjvq84[address] [place] [address]Dr. Rubyyvan Faisal Neutrophils/100 WBC (Bld) 74.4 % Normal 43.0-75.0 [facility] Comment on above: Performed By: #### C BC ####[facility] Srcjkgzytc84[address] [place] [address]Dr. Rubyyvan Faisal Platelet mean volume (Bld) [Entitic vol] 11.9 fL Normal 9.5-13.5 [facility] Comment on above: Performed By: #### C BC ####[facility] Etrvhcgcyz[address] [place] [address]Dr. Donna Malone PLT 174 103/ul Normal 150-450 [facility] Comment on above: Performed By: #### C BC ####[facility] Lmclebnwsz8[address] [place] [address]Dr. Donna Malone RBC 4.53 106/ul Critically low 4.70-6.10 [facility] Comment on above: Performed By: #### C BC ####[facility] Bpjeyqopyy[address] [place], [place] [address]Dr. Donna Malone WBC 9.2 103/ul Normal 4.0-11.0 [facility] Comment on above: Performed By: #### C BC ####[facility] Bhxqigflje39[address] [place] [address]DrElizabeth Malone PROF 14(COMP METB)on 022 Albumin [Mass/Vol] 3.0 g/dL Critically low 3.4-5.0 [facility] Comment on above: Performed By: #### C MP ####[facility] Ilzqrfuphv78[address] [place] [address]DrElizabeth Malone Albumin/Globulin [Mass ratio] 0.8 {ratio} Normal [facility] Comment on above: Performed By: #### C MP ####[facility] Buobbzvwxn44[address] [place] [address]Dr. Donna Malone ALP [Catalytic activity/Vol] 39 U/L Critically low 46-116 [facility] Comment on above: Performed By: #### C MP ####[facility] Wjbevfratu[address] [place] [address]Dr. Donna Malone ALT [Catalytic activity/Vol] 16 U/L Normal 16-63 [facility] Comment on above: Performed By: #### C MP ####[facility] Jteordyokw[address] [place] [id number]. Donna Malone Anion gap [Moles/Vol] 10.8 mmol/L Normal [facility] Comment on above: Performed By: #### C MP ####[facility] Sincdfhrtu[address] [place] [address]Dr. Donna Malone AST [Catalytic activity/Vol] 9 U/L Critically low 15-37 [facility] Comment on above: Performed By: #### C MP ####[facility] Qzxevagqux[address] [place], [place] [address]Dr. Donna Faisal Bilirubin [Mass/Vol] 0.3 mg/dL Normal 0.2-1.0 [facility] Comment on above: Performed By: #### C MP ####[facility] Tztukqejxp4[address] [place], [place] [address]Dr. Donna Malone Calcium [Mass/Vol] 8.8 mg/dL Normal 8.5-10.1 [facility] Comment on above: Performed By: #### C MP ####[facility] Snikfndeop[address] [place] [address]Dr. Donna Malone Chloride [Moles/Vol] 105 mmol/L Normal 98-107 [facility] Comment on above: Performed By: #### C MP ####[facility] Z[address]zrgpulpr26[address] [place] [id number]. Donna Malone CO2 [Moles/Vol] 26.7 mmol/L Normal 21.0-32.0 [facility] Comment on above: Performed By: #### C MP ####[facility] Drfuoquqea8534 [place] [id number]. Donna Faisal Creatinine [Mass/Vol] 0.97 mg/dL Normal 0.70-1.30 [facility] Comment on above: Performed By: #### C MP ####[facility] Mooenhardk[address] [place] [address]Dr. Donna Malone EGFR-AF SRI LANKAN >60 Normal >=60 [facility] Comment on above: Performed By: #### C MP ####[facility] Mxotuvzeye[address] [place] [address]Dr. Donna Malone EGFR-NON AF SRI LANKAN >60 Normal >=60 [facility] Comment on above: Performed By: #### C MP ####[facility] Egpoitcfcw4893 [place] [address]Dr. Donna Malone Globulin (S) [Mass/Vol] 3.7 g/dL Normal [facility] Comment on above: Performed By: #### C MP ####[facility] Bzygjijyii[address] [place], [place] [address]Dr. Donna Malone Glucose [Mass/Vol] 98 mg/dL Normal 74-106 [facility] Comment on above: Performed By: #### C MP ####[facility] Nfdmwmlenz1423 [place] [address]Dr. Donna Malone Potassium [Moles/Vol] 3.5 mmol/L Normal 3.5-5.1 [facility] Comment on above: Performed By: #### C MP ####[facility] Jmleqmbimw[address] [place], [place] [address]Dr. Donna Malone Protein [Mass/Vol] 6.7 g/dL Normal 6.4-8.2 [facility] Comment on above: Performed By: #### C MP ####[facility] Qicxyqmqje94[address] [place], [place] [address]Dr. Donna Malone Sodium [Moles/Vol] 139 mmol/L Normal 136-145 [facility] Comment on above: Performed By: #### C MP ####[facility] Hitjxnnymj8560[address] [place], [place] [address]Dr. Donna Malone Urea nitrogen [Mass/Vol] 11.0 mg/dL Normal 7.0-18.0 [facility] Comment on above: Performed By: #### C MP ####[facility] Nlvddcltds4320[address] [place], [place] [address]Dr. Donna Malone Urea nitrogen/Creatinine [Mass ratio] 11.3 mg/mg Normal [facility] Comment on above: Performed By: #### C MP ####[facility] Lptmlnrugn0[address] [place], [place] [address]Dr. Rubyyvan Malone T3, TOTAL (TRIIODOTHYRONINE) on 05-16-2022 T3, TOTAL 86 ng/dL Normal 71-180 [facility] Comment on above: Performed By: #### T 3TOTAL ####[facility] Otppdkebvl212[address] [place], [place] [address]Dr. Rubyyvan Malone T4 LABCORPon 05-16-2022 T4 [Mass/Vol] 6.4 ug/dL Normal 4.5-12.0 [facility] Comment on above: Performed By: #### T 4LC ####[facility] Epheyajksy[address] [place], [place] [address]Dr. Rubyyvan Malone CBC AUTO DIFFon 05-15-2022 BASO # 0.0 103/ul Normal 0.0-0.1 [facility] Comment on above: Performed By: #### C BC ####[facility] Tngrzatwqh18[address] [place], [place] [address]Dr. Donna Malone Basophils/100 WBC (Bld) 0.3 % Normal 0.2-2.0 [facility] Comment on above: Performed By: #### C BC ####[facility] Owsiaytjdx7[address] [place], [place] [address]Dr. Donna Malone EO # 0.2 103/ul Normal 0.0-0.7 [facility] Comment on above: Performed By: #### C BC ####[facility] Pzhmhqrcby[address] [place], [place] [address]Dr. Donna Malone Eosinophils/100 WBC (Bld) 2.0 % Normal 0.9-7.0 [facility] Comment on above: Performed By: #### C BC ####[facility] Mmcbflwggi97[address] [place], [place] [address]Dr. Donna Malone Erythrocyte distribution width (RBC) [Ratio] 14.6 % Normal 11.0-15.0 [facility] Comment on above: Performed By: #### C BC ####[facility] Mmgzgzzmib5754 [place] [address]DrElizabeth Malone Hematocrit (Bld) [Volume fraction] 38.2 % Critically low 42.0-54.0 [facility] Comment on above: Performed By: #### C BC ####[facility] Yudcjhlcbp[address] [place], [place] [address]DrElizabeth Malone Hemoglobin (Bld) [Mass/Vol] 12.7 g/dL Critically low 14.0-18.0 [facility] Comment on above: Performed By: #### C BC ####[facility] H[address]stkqmmlk[address] [place], [place] [address]DrElizabeth Malone IG # 0.04 10e3/ul Critically high 0.00-0.03 [facility] Comment on above: Performed By: #### C BC ####[facility] Ffhbphekmp76[address] [place], [place] [address]DrElizabeth Malone IG % 0.4 % Normal 0.0-0.5 [facility] Comment on above: Performed By: #### C BC ####[facility] Fggptekqkk64[address] [place], [place] [address]DrElizabeth Malone LYMPH # 1.4 103/ul Normal 1.2-3.8 [facility] Comment on above: Performed By: #### C BC ####[facility] Khoohfgkty[address] [place], [place] [address]DrElizabeth Malone Lymphocytes/100 WBC (Bld) 14.9 % Critically low 20.5-60.0 [facility] Comment on above: Performed By: #### C BC ####[facility] Zvnmmtaauj[address] [place], [place] [address]DrElizabeth Malone MANUAL DIFF REQ NO Normal [facility] Comment on above: Performed By: #### C BC ####[facility] Ohcvqantul[address] [place], [place] [address]DrElizabeth Malone MCH (RBC) [Entitic mass] 30.0 pg Normal 25.9-34.0 [facility] Comment on above: Performed By: #### C BC ####[facility] Qjfjjvpjqy1830 [place] [address]DrElizabeth Malone MCHC (RBC) [Mass/Vol] 33.2 g/dL Normal 29.9-35.2 [facility] Comment on above: Performed By: #### C BC ####[facility] Tzmjaoraoi[address] [place], [place] [address]DrElizabeth Malone MCV (RBC) [Entitic vol] 90.3 fL Normal 80.0-94.0 [facility] Comment on above: Performed By: #### C BC ####[facility] Mkssc[address]wclp[address] [place], [place] [address]DrElizabeth Malone MONO # 0.8 103/ul Normal 0.3-0.8 [facility] Comment on above: Performed By: #### C BC ####[facility] Vurogllhgx[address] [place], [place] [address]DrElizabeth Malone Monocytes/100 WBC (Bld) 8.5 % Normal 1.7-12.0 [facility] Comment on above: Performed By: #### C BC ####[facility] Vctmbumaeb[address] [place], [place] [address]DrElizabeth Malone NEUT # 6.8 103/ul Critically high 1.4-6.5 [facility] Comment on above: Performed By: #### C BC ####[facility] Goiweqlzce26[address] [place], [place] [address]DrElizabeth Malone Neutrophils/100 WBC (Bld) 73.9 % Normal 43.0-75.0 [facility] Comment on above: Performed By: #### C BC ####[facility] Hbvwzeihub0514[address] [place], [place] [address]DrElizabeth Malone Platelet mean volume (Bld) [Entitic vol] 12.0 fL Normal 9.5-13.5 [facility] Comment on above: Performed By: #### C BC ####[facility] Gchczmfbga87[address] [place], [place] [address]DrElizabeth Malone PLT 154 103/ul Normal 150-450 [facility] Comment on above: Performed By: #### C BC ####[facility] [address] [place] [address]Dr. Rubyyvan Faisal RBC 4.23 106/ul Critically low 4.70-6.10 [facility] Comment on above: Performed By: #### C BC ####[facility] Zpgmhjnjei[address] [place] [address]Dr. Donna Malone WBC 9.2 103/ul Normal 4.0-11.0 [facility] Comment on above: Performed By: #### C BC ####[facility] Fyrsnpmodf[address] [place] [address]DrElizabeth Malone PROF 14(COMP METB)on 022 Albumin [Mass/Vol] 2.9 g/dL Critically low 3.4-5.0 [facility] Comment on above: Performed By: #### C MP ####[facility] Jcodgowrwk99[address] [place], [place] [address]Dr. Donna Malone Albumin/Globulin [Mass ratio] 0.9 {ratio} Normal [facility] Comment on above: Performed By: #### C MP ####[facility] Jyxfvnafpn[address] [place], [place] [address]Dr. Donna Malone ALP [Catalytic activity/Vol] 41 U/L Critically low 46-116 [facility] Comment on above: Performed By: #### C MP ####[facility] Irndvohaxv[address] [place] [address]Dr. Donna Malone ALT [Catalytic activity/Vol] 12 U/L Critically low 16-63 [facility] Comment on above: Performed By: #### C MP ####[facility] Jbgeolmiwt[address] [place], [place] [address]DrEliazbeth Malone Anion gap [Moles/Vol] 5.6 mmol/L Normal [facility] Comment on above: Performed By: #### C MP ####[facility] Labujytucm2880[address] [place], [place] [address]Dr. Donna Malone AST [Catalytic activity/Vol] 8 U/L Critically low 15-37 [facility] Comment on above: Performed By: #### C MP ####[facility] Uzfgtdbahb55[address] [place], [place] [address]Dr. Donna Malone Bilirubin [Mass/Vol] 0.5 mg/dL Normal 0.2-1.0 [facility] Comment on above: Performed By: #### C MP ####[facility] Uuxdgmimij0977[address] [place], [place] [address]Dr. Donna Malone Calcium [Mass/Vol] 8.3 mg/dL Critically low 8.5-10.1 [facility] Comment on above: Performed By: #### C MP ####[facility] Glmotzwqte544[address] [place], [place] [address]Dr. Donna Malone Chloride [Moles/Vol] 106 mmol/L Normal 98-107 [facility] Comment on above: Performed By: #### C MP ####[facility] Wfgjlahaoj8109[address] [place], [place] [address]Dr. Donna Malone CO2 [Moles/Vol] 23.1 mmol/L Normal 21.0-32.0 [facility] Comment on above: Performed By: #### C MP ####[facility] Usvnqywdgi145[address] [place], [place] [address]Dr. Donna Malone Creatinine [Mass/Vol] 0.82 mg/dL Normal 0.70-1.30 [facility] Comment on above: Performed By: #### C MP ####[facility] Dbfzyxwymg1546[address] [place], [place] [address]Dr. Donna Faisal EGFR-AF SRI LANKAN >60 Normal >=60 [facility] Comment on above: Performed By: #### C MP ####[facility] Qudubtrvfc0799[address] [place], [place] [address]Dr. Rubyyvan Faisal EGFR-NON AF SRI LANKAN >60 Normal >=60 [facility] Comment on above: Performed By: #### C MP ####[facility] Jhlqoiiraj6468[address] [place], [place] [address]Dr. Donna Malone Globulin (S) [Mass/Vol] 3.2 g/dL Normal [facility] Comment on above: Performed By: #### C MP ####[facility] Jpgiznypfo8[address] [place] [id number]. Donna Malone Glucose [Mass/Vol] 81 mg/dL Normal 74-106 [facility] Comment on above: Performed By: #### C MP ####[facility] Oddkvmvtlo5728 [place] [id number]. Donna Faisal Potassium [Moles/Vol] 3.7 mmol/L Normal 3.5-5.1 [facility] Comment on above: Performed By: #### C MP ####[facility] Mfjachtrvk29[address] [place] [id number]. Donna Malone Protein [Mass/Vol] 6.1 g/dL Critically low 6.4-8.2 [facility] Comment on above: Performed By: #### C MP ####[facility] Wluoljkhsk89[address] [place], [place] [address]Dr. Donna Faisal Sodium [Moles/Vol] 131 mmol/L Critically low 136-145 [facility] Comment on above: Performed By: #### C MP ####[facility] Npvcpzulbl6066[address] [place], [place] [address]Dr. Donna Faisal Urea nitrogen [Mass/Vol] 17.0 mg/dL Normal 7.0-18.0 [facility] Comment on above: Performed By: #### C MP ####[facility] Tangwnsmzj[address] [place], [place] [address]Dr. Donna Faisal Urea nitrogen/Creatinine [Mass ratio] 20.7 mg/mg Normal [facility] Comment on above: Performed By: #### C MP ####[facility] Terbjahwqf76[address] [place] [id number]. Donna Faisal CBC AUTO DIFFon 05-14-2022 BASO # 0.1 103/ul Normal 0.0-0.1 [facility] Comment on above: Performed By: #### C BC ####[facility] Txpcyiytoi5[address] [place] [id number]. Rubyyvan Malone Basophils/100 WBC (Bld) 0.8 % Normal 0.2-2.0 [facility] Comment on above: Performed By: #### C BC ####[facility] Rbyalmfdha6[address] [place] [address]Dr. Donna Malone EO # 0.3 103/ul Normal 0.0-0.7 [facility] Comment on above: Performed By: #### C BC ####[facility] Befxnrbocy1060[address] [place], [place] [address]Dr. Rubyyvan Malone Eosinophils/100 WBC (Bld) 4.2 % Normal 0.9-7.0 [facility] Comment on above: Performed By: #### C BC ####[facility] Cdxovkezcb8524[address] [place], [place] [address]Dr. Rubyyvan Malone Erythrocyte distribution width (RBC) [Ratio] 14.7 % Normal 11.0-15.0 [facility] Comment on above: Performed By: #### C BC ####[facility] Gyrnttnmkw4918[address] [place], [place] [address]Dr. Rubyyvan Malone Hematocrit (Bld) [Volume fraction] 36.5 % Critically low 42.0-54.0 [facility] Comment on above: Performed By: #### C BC ####[facility] Sjaqmdrfcf[address] [place], [place] [address]Dr. Donna Malone Hemoglobin (Bld) [Mass/Vol] 11.9 g/dL Critically low 14.0-18.0 [facility] Comment on above: Performed By: #### C BC ####[facility] Hvtwcrkmiw4839[address] [place], [place] [address]Dr. Rubyyvan Malone IG # 0.01 10e3/ul Normal 0.00-0.03 [facility] Comment on above: Performed By: #### C BC ####[facility] Lennvydulo1338[address] [place], [place] [address]Dr. Donna Malone IG % 0.2 % Normal 0.0-0.5 [facility] Comment on above: Performed By: #### C BC ####[facility] Pywafvozcw9230[address] [place], [place] [address]DrElizabeth Malone LYMPH # 2.1 103/ul Normal 1.2-3.8 [facility] Comment on above: Performed By: #### C BC ####[facility] Cfzcthkfyf04[address] [place] [address]Dr. Donna Malone Lymphocytes/100 WBC (Bld) 32.1 % Normal 20.5-60.0 [facility] Comment on above: Performed By: #### C BC ####[facility] Ukvlbeotvp[address] [place] [address]Dr. Donna Malone MANUAL DIFF REQ NO Normal [facility] Comment on above: Performed By: #### C BC ####[facility] Nkpmkeghss[address] [place] [address]Dr. Donna Malone MCH (RBC) [Entitic mass] 29.7 pg Normal 25.9-34.0 [facility] Comment on above: Performed By: #### C BC ####[facility] Jrapjhaeii9767[address] [place], [place] [address]Dr. Donna Malone MCHC (RBC) [Mass/Vol] 32.6 g/dL Normal 29.9-35.2 [facility] Comment on above: Performed By: #### C BC ####[facility] Cavwtziphk2978[address] [place], [place] [address]Dr. Donna Malone MCV (RBC) [Entitic vol] 91.0 fL Normal 80.0-94.0 [facility] Comment on above: Performed By: #### C BC ####[facility] Yvmakpkhzs[address] [place], [place] [address]Dr. Donna Malone MONO # 0.5 103/ul Normal 0.3-0.8 [facility] Comment on above: Performed By: #### C BC ####[facility] Nhxziooqjt8587[address] [place], [place] [address]Dr. Donna Malone Monocytes/100 WBC (Bld) 8.1 % Normal 1.7-12.0 [facility] Comment on above: Performed By: #### C BC ####[facility] Ofaikmprtu229[address] [place], [place] [address]DrElizabeth Malone NEUT # 3.5 103/ul Normal 1.4-6.5 [facility] Comment on above: Performed By: #### C BC ####[facility] Trqkoczdwf8855 [place] [address]DrElizabeth Malone Neutrophils/100 WBC (Bld) 54.6 % Normal 43.0-75.0 [facility] Comment on above: Performed By: #### C BC ####[facility] Fiqicpdmmq70[address] [place] [id number] Malone Platelet mean volume (Bld) [Entitic vol] 12.0 fL Normal 9.5-13.5 [facility] Comment on above: Performed By: #### C BC ####[facility] Iezwvhvrct9486 [place] [address]DrElizabeth Malone PLT 152 103/ul Normal 150-450 [facility] Comment on above: Performed By: #### C BC ####[facility] Xhbqabfxys4[address] [place] [address]DrElizabeth Malone RBC 4.01 106/ul Critically low 4.70-6.10 [facility] Comment on above: Performed By: #### C BC ####[facility] Yvetlkhohj8[address] [place], [place] [address]DrElizabeth Malone WBC 6.4 103/ul Normal 4.0-11.0 [facility] Comment on above: Performed By: #### C BC ####[facility] Lmvbmuvxrl27[address] [place] [address]DrElizabeth Malone DEPAKENE/VALPROICon 05-14-20 22 DEPAKENE 17.3 ug/ml Critically low 50.0-100.0 [facility] Comment on above: Performed By: #### V ALP ####[facility] Whvuvleihp9[address] [place], [place] [address]Dr. Donna Malone POINT OF CARE GLUCOSEon Glucose [Mass/Vol] 89 mg/dL Normal 74-106 [facility] Comment on above: Performed By: #### P OCGLUC ####[facility] Rufgekjtcy[address] [place] [address]Dr. Donna Malone PROF CHEM 8 (BAS METB)on Anion gap [Moles/Vol] 13.6 mmol/L Normal [facility] Comment on above: Performed By: #### B MP ####[facility] Deshvwgkrq9580[address] [place], [place] [address]Dr. Donna Malone Calcium [Mass/Vol] 7.8 mg/dL Critically low 8.5-10.1 [facility] Comment on above: Performed By: #### B MP ####[facility] Yczykvoqhp5[address] [place], [place] [address]Dr. Donna Malone Chloride [Moles/Vol] 112 mmol/L Critically high 98-107 [facility] Comment on above: Performed By: #### B MP ####[facility] Tggowgiomj5167[address] [place], [place] [address]Dr. Donna Malone CO2 [Moles/Vol] 22.5 mmol/L Normal 21.0-32.0 [facility] Comment on above: Performed By: #### B MP ####[facility] Tvqwqevqxj3949[address] [place], [place] [address]Dr. Donna Malone Creatinine [Mass/Vol] 1.01 mg/dL Normal 0.70-1.30 [facility] Comment on above: Performed By: #### B MP ####[facility] Oncvxtwvwt7350[address] [place], [place] [address]Dr. Donna Malone EGFR-AF SRI LANKAN >60 Normal >=60 [facility] Comment on above: Performed By: #### B MP ####[facility] Ygwbhkkvpd3520[address] [place], [place] [address]Dr. Donna Malone EGFR-NON AF SRI LANKAN >60 Normal >=60 [facility] Comment on above: Performed By: #### B MP ####[facility] Okbrguizhr366[address] [place], [place] [address]Dr. Donna Malone Glucose [Mass/Vol] 84 mg/dL Normal 74-106 [facility] Comment on above: Performed By: #### B MP ####[facility] Krthvdihvx2403[address] [place], [place] [address]Dr. Donna Malone Potassium [Moles/Vol] 4.1 mmol/L Normal 3.5-5.1 [facility] Comment on above: Performed By: #### B MP ####[facility] Pvxjgpcrma98[address] [place] [address]Dr. Donna Malone Sodium [Moles/Vol] 144 mmol/L Normal 136-145 [facility] Comment on above: Performed By: #### B MP ####[facility] Zsqynqcdtg9054[address] [place], [place] [address]Dr. Donna Malone Urea nitrogen [Mass/Vol] 21.0 mg/dL Critically high 7.0-18.0 [facility] Comment on above: Performed By: #### B MP ####[facility] Kdzgavkaoa8747[address] [place], [place] [address]Dr. Donna Malone Urea nitrogen/Creatinine [Mass ratio] 20.8 mg/mg Normal [facility] Comment on above: Performed By: #### B MP ####[facility] Tloysrvpdv3592[address] [place], [place] [address]Dr. Donna Malone TSHon 05-14-2022 TSH 1.086 uIU/mL Normal 0.358-3.74 0 [facility] Comment on above: Performed By: #### T SH ####[facility] Iuhobchizi2369[address] [place], [place] [address]Dr. Donna Malone BLOOD GASES BTYon 05-13-2022 02 MODE ROOM AIR Normal [facility] Comment on above: Performed By: #### A BG ####[facility] Vtkbehxacl9013[address] [place], [place] [address]Dr. Donna Malone ALLENS TEST Positive Normal [facility] Comment on above: Performed By: #### A BG ####[facility] Ioovlyorkn0117[address] [place], [place] [address]Dr. Donna Malone Base excess Calc (Bld) [Moles/Vol] -2.5000 mmol/L Critically low -2.0-2.0 [facility] Comment on above: Performed By: #### A BG ####[facility] Obufsnefni2384[address] [place], [place] [address]Dr. Donna Malone BIPAP PRESSURE [facility] Comment on above: Performed By: #### A BG ####[facility] Qsigzcqoow[address] [place] [address]Dr. Donna Malone CPAP Normal [facility] Comment on above: Performed By: #### A BG ####[facility] Jjxjzgsmte6658[address] [place], [place] [address]Dr. Donna Malone FIO2 Normal [facility] Comment on above: Performed By: #### A BG ####[facility] Lprrjcgvhz2905[address] [place], [place] [address]Dr. Donna Malone HCO3 (Bld) [Moles/Vol] 22.4 mmol/L Normal 22.0-26.0 [facility] Comment on above: Performed By: #### A BG ####[facility] Nzjelqtlmk8946[address] [place], [place] [address]Dr. Donna Malone LPM [facility] Comment on above: Performed By: #### A BG ####[facility] Yjctyttcen8459[address] [place], [place] [address]Dr. Donna Malone MINUTE VOLUME Normal [facility] Comment on above: Performed By: #### A BG ####[facility] Mbfaekqmxq4540[address] [place], [place] [address]Dr. Donna Malone Oxygen (Bld) [Partial pressure] 77.6 mm[Hg] Critically low 80.0-100.0 [facility] Comment on above: Performed By: #### A BG ####[facility] Rxikokmoms5422[address] [place], [place] [address]Dr. Donna Malone Oxygen saturation in Blood 95.5 % Normal 95.0-100.0 [facility] Comment on above: Performed By: #### A BG ####[facility] Irfqznjave3917[address] [place], [place] [address]Dr. Donna Malone PCO2 40.8 mmHg Normal 35.0-45.0 [facility] Comment on above: Performed By: #### A BG ####[facility] Quqxgcimyz2760[address] [place], [place] [address]Dr. Donna Malone PEEP [facility] Comment on above: Performed By: #### A BG ####[facility] Vdbvkwecce04[address] [place] [address]Dr. Donna Malone pH (Bld) 7.359 [pH] Normal 7.350-7.45 0 [facility] Comment on above: Performed By: #### A BG ####[facility] Lewcsfasee[address] [place] [address]Dr. Donna Malone PIP [facility] Comment on above: Performed By: #### A BG ####[facility] Xpwsdviyhj5[address] [place] [address]Dr. Donna Malone PS [facility] Comment on above: Performed By: #### A BG ####[facility] Fhccroajbr[address] [place], [place] [address]Dr. Donna Malone PUNCTURE SITE RR [facility] Comment on above: Performed By: #### A BG ####[facility] Vkwutclitt[address] [place], [place] [address]Dr. Donna Malone RATE [facility] Comment on above: Performed By: #### A BG ####[facility] Rpnnwmaeou9086[address] [place], [place] [address]Dr. Donna Malone VENT MODE [facility] Comment on above: Performed By: #### A BG ####[facility] Ykszeyoeif6062[address] [place], [place] [address]Dr. Donna Malone VT [facility] Comment on above: Performed By: #### A BG ####[facility] Titutljujh8746[address] [place], [place] [address]Dr. Donna Malone BNPon 05-13-2022 Natriuretic peptide B (Bld) [Mass/Vol] 156.0 pg/mL Normal <=900.0 [facility] Comment on above: Performed By: #### C SAL KIDD, BNP ####[facility] Rkykrveotm450[address] [place] [address]Dr. Donna Malone CARDIAC MJ ADMITon 022 CK [Catalytic activity/Vol] 119 U/L Normal 39-308 [facility] Comment on above: Performed By: #### C MARTI CMADM, BNP ####[facility] Ywgxkpffdt2[address] [place] [id number]. Donna Malone CK.MB [Mass/Vol] 1.27 ng/mL Normal <=3.60 [facility] Comment on above: Performed By: #### C MP, CMADM, BNP ####[facility] Cxevktytrw57[address] [place] [address]Dr. Donna Faisal HSTROP 7.9 pg/mL Normal 4.0-76.1 [facility] Comment on above: Result Comment: CUT- OFF POINTS HAVE BEEN ESTABLISHED BASED ON THE FOURTH UNIVERSAL DEFINITIONS OF MYOCARDIALINFARCTION. THE UPPER REFERENCE LIMIT (URL) OF TROPONIN, DEFINED THE 99TH PERCENTILE OFcTnI DISTRIBUTION IN A REFERENCE POPULATION, HAS BEEN CONFIRMED THE DECISION THRESHOLDFOR [place] DIAGNOSIS. Performed By: #### C MP, CMADM, BNP ####[facility] Diklcqhzor[address] [place] [address]Dr. Donna Faisal BINDU 111 ng/mL Critically high 16-96 [facility] Comment on above: Performed By: #### C MP, CMADM, BNP ####[facility] Vzfyvvycju55[address] [place] [address]Dr. Donna Faisal CBC AUTO DIFFon 05-13-2022 BASO # 0.1 103/ul Normal 0.0-0.1 [facility] Comment on above: Performed By: #### C BC ####[facility] Tihbgzwqqv0669 [place] [address]Dr. Donna Malone Basophils/100 WBC (Bld) 0.8 % Normal 0.2-2.0 [facility] Comment on above: Performed By: #### C BC ####[facility] Nkhvrnzapf1874 [place] [phone]. Donna Malone EO # 0.1 103/ul Normal 0.0-0.7 [facility] Comment on above: Performed By: #### C BC ####[facility] Hhyzfnuwiw4[address] [place] [address]Dr. Donna Malone Eosinophils/100 WBC (Bld) 1.8 % Normal 0.9-7.0 [facility] Comment on above: Performed By: #### C BC ####[facility] Pfrhnlwccz97[address] [place] [address]Dr. Donna Malone Erythrocyte distribution width (RBC) [Ratio] 14.7 % Normal 11.0-15.0 [facility] Comment on above: Performed By: #### C BC ####[facility] Wifvovpvai6954[address] [place], [place] [address]Dr. Donna Malone Hematocrit (Bld) [Volume fraction] 38.2 % Critically low 42.0-54.0 [facility] Comment on above: Performed By: #### C BC ####[facility] Xblkvcvplp6034[address] [place], [place] [address]Dr. Donna Malone Hemoglobin (Bld) [Mass/Vol] 12.7 g/dL Critically low 14.0-18.0 [facility] Comment on above: Performed By: #### C BC ####[facility] Fltctirgvf7604[address] [place], [place] [address]Dr. Donna Malone IG # 0.03 10e3/ul Normal 0.00-0.03 [facility] Comment on above: Performed By: #### C BC ####[facility] Hyrcptgkkb[address] [place], [place] [address]Dr. Donna Malone IG % 0.4 % Normal 0.0-0.5 [facility] Comment on above: Performed By: #### C BC ####[facility] Kzbzropsll075[address] [place], [place] [address]Dr. Donna Malone LYMPH # 1.6 103/ul Normal 1.2-3.8 [facility] Comment on above: Performed By: #### C BC ####[facility] Tcmfxzeuow035[address] [place], [place] [address]Dr. Donna Malone Lymphocytes/100 WBC (Bld) 22.8 % Normal 20.5-60.0 [facility] Comment on above: Performed By: #### C BC ####[facility] Ohtudhmzdt2318[address] [place], [place] [address]Dr. Donna Malone MANUAL DIFF REQ NO Normal [facility] Comment on above: Performed By: #### C BC ####[facility] Tfvfrrcsuo33[address] [place] [id number]. Donna Malone MCH (RBC) [Entitic mass] 30.2 pg Normal 25.9-34.0 [facility] Comment on above: Performed By: #### C BC ####[facility] Bnomjprktj4[address] [place] [address]Dr. Donna Malone MCHC (RBC) [Mass/Vol] 33.2 g/dL Normal 29.9-35.2 [facility] Comment on above: Performed By: #### C BC ####[facility] Ekcralvvfm7567[address] [place], [place] [address]Dr. Donna Faisal MCV (RBC) [Entitic vol] 91.0 fL Normal 80.0-94.0 [facility] Comment on above: Performed By: #### C BC ####[facility] Tytzpaztdb64[address] [place], [place] [address]Dr. Rubyyvna Malone MONO # 0.7 103/ul Normal 0.3-0.8 [facility] Comment on above: Performed By: #### C BC ####[facility] Nquuiioiog4707[address] [place], [place] [address]Dr. Rubyyvan Malone Monocytes/100 WBC (Bld) 9.1 % Normal 1.7-12.0 [facility] Comment on above: Performed By: #### C BC ####[facility] Xpwfpgynit3255[address] [place], [place] [address]Dr. Donna Faisal NEUT # 4.7 103/ul Normal 1.4-6.5 [facility] Comment on above: Performed By: #### C BC ####[facility] Atwpzncnda6935[address] [place], [place] [address]Dr. Rubyyvan Malone Neutrophils/100 WBC (Bld) 65.1 % Normal 43.0-75.0 [facility] Comment on above: Performed By: #### C BC ####[facility] Tqxxnfonhv7008[address] [place], [place] [address]Dr. Donna Malone Platelet mean volume (Bld) [Entitic vol] 11.8 fL Normal 9.5-13.5 [facility] Comment on above: Performed By: #### C BC ####[facility] Himqijkvsw9273 [place], [place] [address]Ra. Donna Malone PLT 179 103/ul Normal 150-450 [facility] Comment on above: Performed By: #### C BC ####[facility] Ysqpgqvrnb1544 [place], [place] [address]Aa. Donna Malone RBC 4.20 106/ul Critically low 4.70-6.10 [facility] Comment on above: Performed By: #### C BC ####[facility] Qfllygakpt0582 [place], [place] [address]Ax. Donna Malone WBC 7.2 103/ul Normal 4.0-11.0 [facility] Comment on above: Performed By: #### C BC ####[facility] Yocldfegos7[address] [place], [place] [address]g. [address] STROKE HEAD WOon 05-13-[address] STROKE HEAD WO Normal [facility] Covid-19 PCR (CVDTB)on SARS-CoV-2 (COVID-19) RNA JOSÉ MIGUEL+probe Ql (Unsp spec) Not detected Normal NOT DETECTED [facility] Comment on above: Result Comment: When diagnostic [...] for this test is supported by the [employer] Supervisor of Health and Human Service's declaration that [...] longer be used). Performed By: #### C VDTB ####[facility] Idpnyzxuhn[address] [place] [address]Dr. Donna Malone DEPAKENE/VALPROICon 05-13-20 22 DEPAKENE 16.9 ug/ml Critically low 50.0-100.0 [facility] Comment on above: Performed By: #### V ALP ####[facility] Zddpzuojpb24[address] [place] [address]Dr. Donna Malone DRUG SCREEN RAPID (URINE)on 05-13-2022 AMP Negative Normal NEGATIVE [facility] Comment on above: Performed By: #### D RUGRPD ####[facility] Sxnuuiecxy[address] [place] [address]Dr. Donna Malone BAR Negative Normal NEGATIVE [facility] Comment on above: Performed By: #### D RUGRPD ####[facility] Oagsthyhif5[address] [place] [address]Dr. Donna Malone BUP Negative Normal NEGATIVE [facility] Comment on above: Performed By: #### D RUGRPD ####[facility] [address]whzakvtfs[address] [place], [place] [address]Dr. Rubyyvan Malone BZO Positive Abnormal NEGATIVE [facility] Comment on above: Performed By: #### D RUGRPD ####[facility] Zfjitineag5[address] [place] [address]Dr. Donna Malone EVONNE Positive Abnormal NEGATIVE [facility] Comment on above: Performed By: #### D RUGRPD ####[facility] Ccdoqpdypl[address] [place], [place] [address]Dr. Donna Malone CUT-OFFS SEE BELOW Normal [facility] Comment on above: Result Comment: AMP (Amphetamine): 500ng/mL, BAR (Barbituates): 200 ng/mL, BZO (Benzodiazepines): 150 ng/mL, BUP (Buprenorphine): 10 ng/mL, EVONNE (Cocaine): 150 ng/mL, mAMP (Methamphetamine): 500 ng/mL, MTD (Methadone): 200 ng/mL, OPI (Opiates): 100 ng/mL, OXY (Oxycodone): 100 ng/mL, PCP (Phencyclidine): 25 ng/mL, PPX (Propoxyphene): 300 ng/mL, THC (Cannabinoids): 50 ng/mL, TCA (Trycyclic Antidepressants): 300 ng/mL Performed By: #### D RUGRPD ####[facility] [address]xs[address] [place], [place] [address]Dr. Donna Malone DRUG CUT HEADER DRUG CLASS TEST SYST EM CUT-OFF CONCENTRATIONS ARE FOLLOWS: Normal [facility] Comment on above: Performed By: #### D RUGRPD ####[facility] Uyoyrlmpzv[address] [place], [place] [address]Dr. Donna Malone mAMP Negative Normal NEGATIVE [facility] Comment on above: Performed By: #### D RUGRPD ####[facility] Dchzqgeqal[address] [place], [place] [address]Dr. Donna Malone MTD Negative Normal NEGATIVE [facility] Comment on above: Performed By: #### D RUGRPD ####[facility] Mciczhapog[address] [place], [place] [address]Dr. Donna Malone OPI Positive Abnormal NEGATIVE [facility] Comment on above: Performed By: #### D RUGRPD ####[facility] F[address]rtvdpbxs[address] [place], [place] [address]Dr. Donna Malone OXY Negative Normal NEGATIVE [facility] Comment on above: Performed By: #### D RUGRPD ####[facility] Ildffetvq[address] [place], [place] [address]Dr. Donna Malone PCP Negative Normal NEGATIVE [facility] Comment on above: Performed By: #### D RUGRPD ####[facility] Ndidfqmqvo[address] [place], [place] [address]Dr. Donna Malone PPX Negative Normal NEGATIVE [facility] Comment on above: Performed By: #### D RUGRPD ####[facility] Iteoybxgsm[address] [place], [place] [address]Dr. Donna Malone TCA Positive Abnormal NEGATIVE [facility] Comment on above: Performed By: #### D RUGRPD ####[facility] Qrulxlzegv[address] [place], [place] [address]Dr. Donna Malone THC Negative Normal NEGATIVE [facility] Comment on above: Performed By: #### D RUGRPD ####[facility] Sbscocoenp[address] [place], [place] [address]Dr. Donna Malone ER URINE PROFILEon 2 Bilirubin Ql (U) MODERATE Abnormal NEGATIVE [facility] Comment on above: Performed By: #### E RUR ####[facility] Pvnizqmqvs3[address] [place], [place] [address]Dr. Donna Malone Clarity (U) SL CLOUDY Abnormal CLEAR [facility] Comment on above: Performed By: #### E RUR ####[facility] Dvwacyfgje[address] [place], [place] [address]Dr. Donna Malone Color (U) DK. YELLOW Normal YELLOW [facility] Comment on above: Performed By: #### E RUR ####[facility] Pwnkrgkfis[address] [place], [place] [address]Dr. Donna Malone ERUAHD A micrscopic examina tion will be performed if indicated. Normal [facility] Comment on above: Performed By: #### E RUR ####[facility] Z[address]nnzutvl[address] [place], [place] [address]Dr. Donna Malone Glucose Ql (U) 250 mg/dl Abnormal NEGATIVE [facility] Comment on above: Performed By: #### E RUR ####[facility] Gzyzntltse[address] [place], [place] [address]Dr. Donna Malone Hemoglobin Ql (U) Negative Normal NEGATIVE [facility] Comment on above: Performed By: #### E RUR ####[facility] Elqgahcvig[address] [place], [place] [address]Dr. Donna Malone Ketones Ql (U) TRACE Abnormal NEGATIVE [facility] Comment on above: Performed By: #### E RUR ####[facility] Ydyfwprwio[address] [place], [place] [address]Dr. Donna Malone LEUKOCYTES Negative Normal NEGATIVE [facility] Comment on above: Performed By: #### E RUR ####[facility] V[address]ud[address]ego[address] [place], [place] [address]Dr. Donna Malone Nitrite Ql (U) Negative Normal NEGATIVE [facility] Comment on above: Performed By: #### E RUR ####[facility] [address]kwytqlt[address] [place] [address]Dr. Donna Malone pH (U) 5.5 [pH] Normal 5-9 [facility] Comment on above: Performed By: #### E RUR ####[facility] Bygixdsuek[address] [place], [place] [address]Dr. Donna Malone SPEC GRAVITY >=1.030 Abnormal 1.005-<=1. 025 [facility] Comment on above: Performed By: #### E RUR ####[facility] Ntzqki[address]xg[address] [place], [place] [address]Dr. Donna Faisal UA PROTEIN TRACE Normal NEGATIVE/ TRACE [facility] Comment on above: Performed By: #### E RUR ####[facility] Iuofhxunnl[address] [place], [place] [address]Dr. Donna Faisal UR MICRO IND NOT INDICATED Normal [facility] Comment on above: Performed By: #### E RUR ####[facility] Lddke[address]wwn[address] [place], [place] [address]Dr. Donna Faisal Urobilinogen Qn (U) 1.0 {Jermain'U}/dL Normal 0.2 - 1. 0 [facility] Comment on above: Performed By: #### E RUR ####[facility] Qwsmapnomu[address] [place], [place] [address]Dr. Donna Malone ETHANOL (BLD ALC)on 05-13-20 ALC NOTE NOTE: 80 mg/dl is th e legal limit for a blood alcohol level Normal [facility] Comment on above: Performed By: #### E TH ####[facility] Vz[address]wy[address] [place], [place] [address]Dr. Donna Malone Ethanol [Mass/Vol] mg/dL Normal [facility] Comment on above: Performed By: #### E TH ####[facility] Otnqtteqbe[address] [place], [place] [address]Dr. Donna Malone LACTATE/LACTIC ACIDon 2021 Lactate [Moles/Vol] 1.7 mmol/L Normal 0.4-1.9 [facility] Comment on above: Performed By: #### L ACT ####[facility] [address]jddz[address] [place] [address]Dr. Donna Malone POINT OF CARE GLUCOSEon Glucose [Mass/Vol] 99 mg/dL Normal 74-106 [facility] Comment on above: Performed By: #### P OCGLUC ####[facility] Huhcqmpump[address] [place] [address]Dr. Donna Malone PROF 14(COMP METB)on 022 Albumin [Mass/Vol] 3.1 g/dL Critically low 3.4-5.0 [facility] Comment on above: Performed By: #### C MP, CMADM, BNP ####[facility] [address]qssnl[address] [place] [address]Dr. Donna Malone Albumin/Globulin [Mass ratio] 1.0 {ratio} Normal [facility] Comment on above: Performed By: #### C MP, CMADM, BNP ####[facility] [address]qrnrvm[address] [place] [address]Dr. Donna Malone ALP [Catalytic activity/Vol] 37 U/L Critically low 46-116 [facility] Comment on above: Performed By: #### C MP, CMADM, BNP ####[facility] Gzl[address]zqktm[address] [place] [address]Dr. Donna Malone ALT [Catalytic activity/Vol] 14 U/L Critically low 16-63 [facility] Comment on above: Performed By: #### C MP, CMADM, BNP ####[facility] Zybgljsvic20[address] [place] [address]Dr. Donna Malone Anion gap [Moles/Vol] 12.3 mmol/L Normal [facility] Comment on above: Performed By: #### C MP, CMADM, BNP ####[facility] Z[address]fpufzs[address] [place] [address]Dr. Donna Malone AST [Catalytic activity/Vol] 12 U/L Critically low 15-37 [facility] Comment on above: Performed By: #### C MP, CMADM, BNP ####[facility] Mmtrioxsmp[address] [place] [address]Dr. Donna Malone Bilirubin [Mass/Vol] 0.4 mg/dL Normal 0.2-1.0 [facility] Comment on above: Performed By: #### C MP, CMADM, BNP ####[facility] X[address] [place], [place] [address]Dr. Donna Malone Calcium [Mass/Vol] 7.8 mg/dL Critically low 8.5-10.1 [facility] Comment on above: Performed By: #### C MP, CMADM, BNP ####[facility] Brx[address]whjsl[address] [place] [address]Dr. Donna Malone Chloride [Moles/Vol] 108 mmol/L Critically high 98-107 [facility] Comment on above: Performed By: #### C MP, CMADM, BNP ####[facility] T[address]udfms[address]zf[address] [place], [place] [address]Dr. Donna Malone CO2 [Moles/Vol] 24.8 mmol/L Normal 21.0-32.0 [facility] Comment on above: Performed By: #### C MP, CMADM, BNP ####[facility] W[address]spvj[address] [place], [place] [address]Dr. Donna Malone Creatinine [Mass/Vol] 1.83 mg/dL Critically high 0.70-1.30 [facility] Comment on above: Performed By: #### C MP, CMADM, BNP ####[facility] Mzm[address]icwci[address] [place], [place] [address]Dr. Donna Malone EGFR-AF SRI LANKAN 45 mL/min/1.73m2 Critically low >=60 [facility] Comment on above: Performed By: #### C MP, CMADM, BNP ####[facility] J[address]zysjh[address] [place], [place] [address]Dr. Donna Malone EGFR-NON AF SRI LANKAN 37 mL/min/1.73m2 Critically low >=60 [facility] Comment on above: Performed By: #### C MP, CMADM, BNP ####[facility] Sp[address]pt[address]aqg[address] [place], [place] [address]Dr. Donna Malone Globulin (S) [Mass/Vol] 3.2 g/dL Normal [facility] Comment on above: Performed By: #### C MP, CMADM, BNP ####[facility] [address]eelkr[address] [place] [address]Dr. Donna Malone Glucose [Mass/Vol] 202 mg/dL Critically high 74-106 [facility] Comment on above: Performed By: #### C MP, CMADM, BNP ####[facility] Scxeglhksi[address] [place] [address]Dr. Donna Malone Potassium [Moles/Vol] 4.1 mmol/L Normal 3.5-5.1 [facility] Comment on above: Performed By: #### C MP, CMADM, BNP ####[facility] [address]izbk[address] [place] [address]Dr. Donna Malone Protein [Mass/Vol] 6.3 g/dL Critically low 6.4-8.2 [facility] Comment on above: Performed By: #### C MP, CMADM, BNP ####[facility] Cmhdyyxnvj99[address] [place] [address]Dr. Donna Malone Sodium [Moles/Vol] 141 mmol/L Normal 136-145 [facility] Comment on above: Performed By: #### C MP, CMADM, BNP ####[facility] Egxsocwmxq0837 [place] [address]Dr. Donna Malone Urea nitrogen [Mass/Vol] 32.0 mg/dL Critically high 7.0-18.0 [facility] Comment on above: Performed By: #### C MP, CMADM, BNP ####[facility] [address]nnxpvevyo[address] [place] [address]Dr. Donna Malone Urea nitrogen/Creatinine [Mass ratio] 17.5 mg/mg Normal [facility] Comment on above: Performed By: #### C MP, CMADM, BNP ####[facility] Ejj[address]xsjrw[address] [place] [address]Dr. Donna Malone PROTIMEon 05-13-2022 INR Coag (PPP) [Relative time] 1.04 {INR} Normal [facility] Comment on above: Performed By: #### P T, PTT ####[facility] [address]fv[address] [place] [id number]. Donna Malone INR GUIDELINES SEE BELOW Normal [facility] Comment on above: Result Comment: FLORESITA RED INR: 2.0 - 3.0 CONDITIONS NOT LISTED BELOW 2.5 - 3.5 FOR PROSTHETIC HEART VALVE REPLACEMENT 2.5 - 3.5 RECURRENT THROMBOSIS Performed By: #### P T, PTT ####[facility] Earap[address]pi[address] [place] [id number]. Donna Malone PT Coag (PPP) [Time] 11.2 s Normal 9.0-11.6 [facility] Comment on above: Performed By: #### P T, PTT ####[facility] C[address]em[address]wm[address] [place] [address]Dr. Donna Malone PTTon 05-13-2022 aPTT Coag (Bld) [Time] 27.5 s Normal 22.3-36.2 [facility] Comment on above: Performed By: #### P T, PTT ####[facility] [address]frt[address] [place] [id number]. Donna Malone XR CHEST 1 Von 05-13-2022 XR CHEST 1 V Normal [facility] Ambulatory Visit Summaryon 0 10-03-2021 Ambulatory Visit [...] physician if questions or concerns acetaminophen acetaminophen-hydrocodone (Clio 5/325 Tab) amlodipine (amLODIPine 5 mg Tab) [...] [facility] [address] [place] [address]- Medications What How Much When Instructions New ciprofloxacin (Cipro 500 mg Tab) 1 Tablets By Mouth Every day Take 1 tablet the day before the procedure and 1 tablet after the procedure Pickup at [facility] Unchanged acetaminophen 650 Milligram Every 4 hours Contact prescribing physician if questions or concerns Unchanged acetaminophen-hydrocodone (Clio 5/ 325 Tab) 1 Tablets By Mouth [...] physician if questions or concerns Pharmacy Information [facility]: [address], [place] [id number] [phone] (more content not included)... Normal [facility] Ambulatory Visit Summary TAYLOR MCCLELLAN SR [...] physician if questions or concerns acetaminophen acetaminophen-hydrocodone (Clio 5/325 Tab) amlodipine (amLODIPine 5 mg Tab) [...] [facility] [address], [place] [address]- Medications What How Much When Instructions New ciprofloxacin (Cipro 500 mg Tab) 1 Tablets By Mouth Every day Take 1 tablet the day before the procedure and 1 tablet after the procedure Pickup at [facility] Unchanged acetaminophen 650 Milligram Every 4 hours Contact prescribing physician if questions or concerns Unchanged acetaminophen-hydrocodone (Clio 5/ 325 Tab) 1 Tablets By Mouth [...] physician if questions or concerns Pharmacy Information [facility]: [address] [place], [place] [id number] [phone] (more content not included)... Normal [facility] Half-Way Recordson 10-03 Half-[facility] Records [phone] [id number] Normal [facility] Patient Educationon 01-25-20 22 Patient Education Urology Benign Prostatic Hyperplasia Benign [...] Follow these instructions at home: ? Take erze-ccu-werutdr and prescription medicines only as told by [...] You d (more content not included)... Normal [facility] Urology Office/Clinic Noteon 10-03-2021 Urology Office/Clinic Note Chief Complaint This is a 66 year old male in the [place] [facility] on 09/14/21. This patient has a [...] HPI Staff Pt. last seen in office 2018. S/P [employer] 10/30/18. Pt. was seen in the [facility] ER on 09/14/21 due to generalized weakness. [...] recently. Family was in the hospital at [place] where he had severe weakness. A Gal[place] [...] last seen in 2019. Patient was in [facility] 09/14/21 due to weakness and acute kidney [...] dribbling) moderate, (more content not included)... Normal [facility] Comment on above: Result Comment: Elec tronically Signed By: Sharad Grossman MD, Lisandro Espinal\.br\Date and Time Signed: 10/03/21 12:37 EST\.br\Electronically Co-Signed By: Lisanrda Arias\.br\Date and Time Co-Signed: 10/03/21 12:32 EST APTTon 10-13-2019 aPTT Coag (Bld) [Time] 34.9 s Normal 25.0-35.0 [facility] Comment on above: Result Comment: ALL [...] THIS PURPOSE. Performed By: #### 5 6101, [id number] #### [facility] [address] [place] [address], [facility] CREATININE BLOODon 0 Creatinine [Mass/Vol] 1.07 mg/dL Normal 0.70-1.30 [facility] Comment on above: Performed By: #### 2 5656 #### [facility] [address] [place] [address], [place] Creatinine [Mass/Vol] mg/dL Normal >60 [facility] Comment on above: Performed By: #### 2 5656 #### [address] LUMBAR SPINE W CONTRASTon 10-13-2019 CT LUMBAR SPINE W CONTRAST [facility] Department of Radiology [address] [place] [id number] Patient Name: TAYLOR MCCLELLAN : 1955 Sex: M Age: Race: White Pt. Location: Patient Status: O Ordered Date: 09/11/2019 2:50:00 PM Completed Date: 10/13/2019 11:37 AM Requesting Provider: JASEN HOWARD Attending Provider: JASEN HOWARD Report Copy To: LUI BRYSON Signs & Symptoms: M51.36 Other intervertebral disc degeneration, lumbar region I10 History: [place] Need Saturday appointment call [facility] [phone] [facility] auth# [id number] 09/16/19-10/15/19 cpt code 33999 *mla Comments: Exam: CT LUMBAR SPINE W [...] achievable Electronically signed: Fredy Salmeron. Transcribed by: [email or web address], User Resident: Electronically Signed by: FREDY SALMERON @ 10/13/2019 02:08 PM Normal [facility] LUMBAR MYELOGRAMon 0 LUMBAR MYELOGRAM [facility] Department of Radiology [address] [place] [address] Patient Name: TAYLOR MCCLELLAN : 1955 Sex: M Age: Race: White Pt. Location: Patient Status: O Ordered Date: 09/11/2019 2:50:00 PM Completed Date: 10/13/2019 10:49 AM Requesting Provider: JASEN HOWARD Attending Provider: JASEN HOWARD Report Copy To: LUI BRYSON Signs & Symptoms: M51.36 Other intervertebral disc degeneration, lumbar region I10 History: [place] Need Saturday appointment Patient will need labs, [...] risks are acceptable. Consent was obtained. Timeout: [place] protocol timeout verification performed. PROCEDURE: Estimated blood [...] reports Electronically signed: Fredy Salmeron. Transcribed by: [email or web address], User Resident: KRISTINE BALLARD Electronically Signed by: FREDY SALMERON @ 10/13/2019 06:58 PM I personally read this/these film(s) with this resident Normal [facility] Comment on above: Order Comment: , , = ========= , Ordering Provider - JASEN HOWARD MD , PROTHROMBIN TIMEon 0 INR Coag (PPP) [Relative time] 1.05 {INR} Normal 0.91-1.16 [facility] Comment on above: Result Comment: ACCC [...] CHEST 1995;[id number]. Performed By: #### 5 6101, [id number] #### [facility] [address] PT Coag (PPP) [Time] 13.7 s Normal 12.3-14.8 [facility] Comment on above: Result Comment: ALL RESULTS MUST BE INTERPRETED WITH RESPECT TO BLOOD DRAWING ARTIFACT OR DILUTION ERROR OF ANTICOAGULANT AT THE TIME OF SAMPLING. Performed By: #### 5 6101, [id number] #### [facility] [address] [facility] [address] Laboratory Studieson 019 HBV surface Ab Ql (S) Non reactive [facility] Work Phone: Comment on above: Non Reactive: Incons istent with immunity, less than 10 mIU/mL Reactive: Consistent with immunity, greater than 9.9 mIU/mL HBV surface Ag IA Ql Negative [facility] Work Phone: Comment on above: Performed at: [place] [id number] Manager Applied: Arnold Cabral PhD, Phone: [phone] HCV Ab Signal/Cutoff IA RelACnc 0.1 s/co ratio [facility] Work Phone: Hepatitis C Antibody Comment See comment [facility] Work Phone: Comment on above: Non reactive HCV ant ibody screen is consistent with no HCV infection, unless recent infection is suspected or other evidence exists to indicate HCV infection. HIV 1+2 Ab IA Ql Nonreactive [facility] Work Phone: Laboratory Studieson 018 Glucose mass conc Glu2: cleaned meter [facility] Work Phone: Glucose mass conc 121 mg/dL [facility] Work Phone: Comment on above: Random Glucose Refer ence Range is dependent on time and content of last meal. Glucose of more than 200 mg/dL in a nonstressed, ambulatory subject supports the diagnosis of Diabetes Mellitus. Calcium mass conc 8.7 mg/dL 8.2-10.2 [facility] Work Phone: Chloride molar conc 102 mmol/L 95-114 [facility] Work Phone: CO2 molar conc 27.5 mmol/L 22.0-30.0 [facility] Work Phone: Creatinine mass conc 1.08 mg/dL 0.64-1.27 [facility] Work Phone: GFR/1.73 sq M predicted among blacks MDRD vol rate/area (S/P/Bld) mL/min/{1.73_m2} [facility] Work Phone: Comment on above: GFR estimated refere nce range: According to KDOQI guidelines, <60 ml/min/1.73m2 is sufficient to diagnose a patient with chronic kidney disease. GFR/1.73 sq M predicted among non-blacks MDRD vol rate/area (S/P/Bld) mL/min/{1.73_m2} [facility] Work Phone: Glucose mass conc 86 mg/dL 70-100 [facility] Work Phone: Comment on above: ADA recommended refe rence range Random Glucose Reference Range is dependent on time and content of last meal. Glucose of more than 200 mg/dL in a nonstressed, ambulatory subject supports the diagnosis of Diabetes Mellitus. Pharmacy Creatinine Clearance (Chem 88.1842 [facility] Work Phone: Potassium molar conc 3.5 mmol/L 3.5-5.1 [facility] Work Phone: Sodium molar conc 139 mmol/L 136-146 [facility] Work Phone: Urea nitrogen mass conc 10 mg/dL 9-23 [facility] Work Phone: Laboratory Studieson 018 Basophils #/vol (Bld) 0.1 10*3/uL 0.0-0.2 [facility] Work Phone: Basophils/100 WBC (Bld) 1.0 % [facility] Work Phone: Eosinophils #/vol (Bld) 0.2 10*3/uL 0.0-0.45 [facility] Work Phone: Eosinophils/100 WBC (Bld) 2.8 % [facility] Work Phone: Erythrocyte distribution width Ratio (RBC) 13.9 % 12.0-14.8 [facility] Work Phone: Hematocrit Volume Fraction (Bld) 36.3 % Low 38.8-50.0 [facility] Work Phone: Hemoglobin mass conc (Bld) 12.5 g/dL Low 13.0-17.0 [facility] Work Phone: Lymphocytes #/vol (Bld) 1.6 10*3/uL 1.00-4.8 [facility] Work Phone: Lymphocytes/100 WBC (Bld) 23.7 % [facility] Work Phone: MCH Entitic mass (RBC) 28.9 pg 27.5-35.2 [facility] Work Phone: MCHC mass conc (RBC) 34.3 g/dL 32.5-35.6 [facility] Work Phone: MCV Entitic volume (RBC) 84.4 fL 83.5-101 [facility] Work Phone: Monocytes #/vol (Bld) 0.4 10*3/uL 0.0-0.8 [facility] Work Phone: Monocytes/100 WBC (Bld) 6.7 % [facility] Work Phone: Neutrophils #/vol (Bld) 4.4 10*3/uL 1.8-7.7 [facility] Work Phone: Neutrophils/100 WBC (Bld) 65.8 % [facility] Work Phone: Platelet mean volume Entitic volume (Bld) 10.3 fL High 6.6-10.1 [facility] Work Phone: Platelets #/vol (Bld) 199 10*3/uL 150-450 Fi [facility] Work Phone: RBC #/vol (Bld) 4.31 10*6/uL 3.90-5.60 [facility] Work Phone: WBC #/vol (Bld) 6.6 10*3/uL 4.1-10.5 [facility] Work Phone: Laboratory Studieson 018 Appearance Nom (U) Slightly cloudy Abnormal [facility] Work Phone: Bacteria Auto Ql (U) None seen [facility] Work Phone: Bilirubin Ql (U) Negative [facility] Work Phone: Color Nom (U) Yellow [facility] Work Phone: Creatinine mass conc (U) 143.4 mg/dL [facility] Work Phone: Comment on above: No reference range e stablished Epithelial cells Auto #/area (Urine sed) Rare /HPF [facility] Work Phone: Glucose Automated test strip mass conc (U) Normal mg/dL [facility] Work Phone: Hemoglobin Automated test strip Ql (U) 1+ High [facility] Work Phone: Ketones mass conc (U) 1+ High [facility] Work Phone: Leukocyte esterase Automated test strip Ql (U) Negative [facility] Work Phone: Nitrite Automated test strip Ql (U) Negative [facility] Work Phone: pH (U) 5.5 [pH] 5.0-9.0 [facility] Work Phone: pH (U) [pH] 1.001-1.03 0 [facility] Work Phone: Protein mass conc (U) Negative [facility] Work Phone: RBC Auto #/area (Urine sed) 1-2 /HPF [facility] Work Phone: Sodium molar conc (U) 144.0 mmol/L [facility] Work Phone: Comment on above: No reference range e stablished Urate crystals LM.HPF #/area (Urine sed) 3 /[HPF] [facility] Work Phone: Urobilinogen mass conc (U) Normal mg/dL [facility] Work Phone: WBC Auto #/area (Urine sed) None seen /HPF [facility] Work Phone: Albumin mass conc 2.7 g/dL Low 3.2-5.5 [facility] Work Phone: Albumin/Globulin mass ratio 0.8 {ratio} [facility] Work Phone: ALP enzyme act/vol 39 U/L 32-92 [facility] Work Phone: ALT No additional P-5'-P enzyme act/vol 14 U/L 10-60 [facility] Work Phone: AST enzyme act/vol 25 U/L 10-42 [facility] Work Phone: Bilirubin mass conc 0.6 mg/dL 0.3-1.2 [facility] Work Phone: Globulin mass conc (S) 3.6 g/dL Fi [facility] Work Phone: Protein mass conc 6.3 g/dL 6.1-7.9 [facility] Work Phone: Laboratory Studieson 018 T3 free mass conc 3.28 pg/mL 2.50-3.90 [facility] Work Phone: T4 free mass conc 0.95 ng/dL 0.61-1.12 [facility] Work Phone: Amphetamines Ql (U) Negative [facility] Work Phone: Barbiturates Ql (U) Negative [facility] Work Phone: Benzodiazepines Ql (U) Positive High [facility] Work Phone: Cannabinoids Screen Ql (U) Negative [facility] Work Phone: Comment on above: These are unconfirme d results and should not be used for legal purposes. Drug Cut-Off Concentration: AMPH 1000 ng/mL EWA 200 ng/mL JOHN 200 ng/mL COCM 300 ng/mL OP 300 ng/mL PCP 25 ng/mL THC 20 ng/mL Cocaine Ql (U) Negative [facility] Work Phone: Opiates Ql (U) Positive High [facility] [facility] Work Phone: Phencyclidine Ql (U) Negative [facility] Work Phone: Ammonia mass conc (Unsp spec) 20 umol/L 11-35 [facility] Work Phone: Bilirubin.direct mass conc 0.2 mg/dL 0.0-0.4 [facility] Work Phone: Bilirubin.indirect mass conc 0.8 mg/dL [facility] Work Phone: Cobalamin (Vitamin B12) mass conc 365 pg/mL 180-914 [facility] Work Phone: Folate mass conc 12.4 ng/mL [facility] Work Phone: Comment on above: Folate reference ran ge: >5.9 ng/ml The WHO technical consultation on folate and vitamin b12 deficiencies has determined that folate concentrations less than 4 ng/ml are considered deficient. Magnesium molar conc (Unsp spec) 1.7 mg/dL 1.6-2.6 [facility] Work Phone: Thyrotropin Qn 0.20 uIU/mL Low 0.45-5.33 [facility] Work Phone: Comment on above: Revised TSH Assay This assay is standardized to the World Health Organization International Standard for human TSH. Please note Reference Intervals have changed. Laboratory Studieson 018 Casts LM Nom (Urine sed) N/A [facility] Work Phone: Epithelial cells.renal LM.HPF #/area (Urine sed) Rare /HPF [facility] Work Phone: Hyaline casts Auto #/vol (U) 20-49 /LPF High [facility] Work Phone: Lactate molar conc (U) 0.9 mmol/L [facility] Work Phone: CK enzyme act/vol 107 U/L 22-269 [facility] Work Phone: Phosphate mass conc 5.0 mg/dL High 2.5-4.6 [facility] Work Phone: Laboratory Studieson 017 Glucose mass conc 122 mg/dL [facility] Work Phone: Comment on above: RANDOM GLUCOSE REFER ENCE RANGE IS DEPENDENT ON TIME AND CONTENT OF LAST MEAL.GLUCOSE OF MORE THAN 200MG/DL IN A NONSTRESSED,AMBULATORY SUBJECT SUPPORTS THE DIAGNOSIS OF DIABETES MELLITUS. Laboratory Studieson 017 Basophils #/vol (Bld) 0.1 10*3/uL 0.0-0.2 [facility] Work Phone: Basophils/100 WBC (Bld) 0.9 % [facility] Work Phone: Calcium mass conc 8.6 mg/dL 8.2-10.2 [facility] Work Phone: Chloride molar conc 109 mmol/L 95-114 [facility] Work Phone: CK enzyme act/vol 355 U/L High 22-269 [facility] Work Phone: CO2 molar conc 19.5 mmol/L Low 22.0-30.0 [facility] Work Phone: Creatinine mass conc 0.99 mg/dL 0.64-1.27 [facility] Work Phone: Eosinophils #/vol (Bld) 0.20 10*3/uL 0.0-0.45 [facility] Work Phone: Eosinophils/100 WBC (Bld) 3.3 % [facility] Work Phone: Erythrocyte distribution width Ratio (RBC) 13.8 % 12.0-14.8 [facility] Work Phone: Estimated GFR (Non- > 60 [facility] Work Phone: GFR/1.73 sq M.predicted MDRD (S/P/Bld) [Vol rate/Area] mL/min/{1.73_m2} [facility] Comment on above: GFR estimated refere nce range: According to KDOQI guidelines, <60 ml/min/1.73m2 is sufficient to diagnose a patient with chronic kidney disease. GFR/1.73 sq M.predicted MDRD vol rate/area mL/min/{1.73_m2} [facility] Work Phone: Comment on above: GFR estimated refere nce range: According to KDOQI guidelines, <60 ml/min/1.73m2 is sufficient to diagnose a patient with chronic kidney disease. Glucose mass conc 94 mg/dL 70-100 [facility] Work Phone: Comment on above: ADA RECOMMENDED REFE RENCE RANGE Hematocrit Volume Fraction (Bld) 41.5 % 38.8-50.0 [facility] Work Phone: Hemoglobin mass conc (Bld) 14.1 g/dL 13.0-17.0 [facility] Work Phone: Lymphocytes #/vol (Bld) 2.6 10*3/uL 1.00-4.8 [facility] Work Phone: Lymphocytes/100 WBC (Bld) 40.3 % [facility] Work Phone: MCH Entitic mass (RBC) 30.4 pg 27.5-35.2 [facility] Work Phone: MCHC mass conc (RBC) 34.1 g/dL 32.5-35.6 [facility] Work Phone: MCV Entitic volume (RBC) 89.2 fL 83.5-101 [facility] Work Phone: Monocytes #/vol (Bld) 0.4 10*3/uL 0.0-0.8 [facility] Work Phone: Monocytes/100 WBC (Bld) 6.4 % [facility] Work Phone: Neutrophils #/vol (Bld) 3.1 10*3/uL 1.8-7.7 [facility] Work Phone: Neutrophils (%) (Auto) 49.1 % [facility] Work Phone: Neutrophils/100 WBC (Bld) 49.1 % [facility] Platelet mean volume Entitic volume (Bld) 10.7 fL High 6.6-10.1 [facility] Work Phone: Platelets #/vol (Bld) 160 10*3/uL 150-450 [facility] Work Phone: Potassium molar conc 3.4 mmol/L Low 3.5-5.1 [facility] Work Phone: RBC #/vol (Bld) 4.65 10*6/uL 3.90-5.60 [facility] Work Phone: Sodium molar conc 138 mmol/L 136-146 [facility] Work Phone: Urea nitrogen mass conc 7 mg/dL Low 9-23 [facility] Work Phone: WBC #/vol (Bld) 6.4 10*3/uL 4.1-10.5 [facility] Work Phone: Laboratory Studieson 017 Platelet Aggregation (ADP) 57.8 % 0-100 [facility] Work Phone: Comment on above: NO REFERENCE RANGE I S ESTABLISHED OR APPLICABLE Platelet Inhibition ADP 42.2 % 0-100 [facility] Work Phone: Comment on above: NO REFERENCE RANGE I S ESTABLISHED OR APPLICABLE TEG Max Amplitude (Citrated) 69.9 mm 50-70 [facility] Work Phone: TEG Max Amplitude (Rapid) 29.9 0-90 [facility] Work Phone: Comment on above: TEG MA A HAS NO REFE RENCE RANGE Thrombelastograph (TEG) Net G ADP 53.0 MM 0-90 [facility] Work Phone: Comment on above: TEG MA ADP HAS NO RE FERENCE RANGE Albumin mass conc 3.1 g/dL Low 3.2-5.5 [facility] Work Phone: Albumin/Globulin mass ratio 1.0 {ratio} [facility] Work Phone: ALP enzyme act/vol 44 U/L 32-92 [facility] Work Phone: ALT enzyme act/vol 18 U/L 10-60 [facility] Work Phone: AST enzyme act/vol 27 U/L 10-42 [facility] Work Phone: Bilirubin Ql (U) 0.6 mg/dL 0.3-1.2 [facility] Work Phone: Bilirubin.direct mass conc 0.1 mg/dL 0.0-0.4 [facility] Work Phone: Bilirubin.indirect mass conc (Body fld) 0.5 mg/dL [facility] Work Phone: Cholesterol in HDL mass conc 26 mg/dL Low 29-71 [facility] Work Phone: Comment on above: HDL CHOL ATP-III CLA SSIFICATION Cardiovascular Risk HDL > or equal to 60 mg/dL Low HDL < 40 mg/dL High Cholesterol mass conc 150 mg/dL 140-200 [facility] Work Phone: Comment on above: CHOL less than 200 m g/dL Low risk CHOL 201-239 mg/dL Borderline risk CHOL 240 mg/dL and greater High risk Cholesterol mass conc 30 mg/dL [facility] Work Phone: Cholesterol.total/Chol esterol in HDL mass ratio 5.8 {ratio} [facility] Work Phone: Globulin mass conc (S) 3.2 g/dL [facility] Work Phone: LDL Cholesterol, Calculated 93 mg/dL 0-100 [facility] Work Phone: Comment on above: LDL ATP III CLASSIFI CATION LDL less than 100 mg/dL Optimal LDL 100-129 mg/dL Near or above optimal LDL 130-159 mg/dL Borderline high LDL 160-189 mg/dL High LDL greater than 189 mg/dL Very high Protein mass conc 6.3 g/dL 6.1-7.9 [facility] Work Phone: Thyrotropin Qn 1.12 uIU/mL 0.45-5.33 [facility] Work Phone: Comment on above: Revised TSH Assay This assay is standardized to the World Health Organization International Standard for human TSH. Please note Reference Intervals have changed. Triglyceride mass conc 153 mg/dL High 35-149 [facility] Work Phone: Comment on above: TRIG ATP III CLASSIF ICATION TRIG less than 150 mg/dL Normal TRIG 150-199 mg/dL Borderline high TRIG 200-500 mg/dL High TRIG greater than 500 mg/dL Very high Standard traceable to the Center for Disease Conrtrol and Prevention (CDC) test method. Laboratory Studieson 017 Glucose mass conc Glu2: cleaned meter [facility] Work Phone: Ammonia mass conc (P) 19 umol/L 11-35 [facility] Work Phone: Cobalamin (Vitamin B12) mass conc 202 pg/mL 180-914 [facility] Work Phone: Folate 10.7 ng/mL [facility] Work Phone: Comment on above: FOLATE REFERENCE RAN GE: >5.9 ng/mL The WHO Technical Consultation on folate and vitamin B12 deficiencies has determined that folate concentrations less than 4 ng/mL are considered deficient. Amphetamines Ql (U) Negative [facility] Work Phone: Appearance Nom (U) Clear [facility] Work Phone: Bacteria LM.HPF #/area (Urine sed) None seen [facility] Work Phone: Benzodiazepines Ql (U) Positive High [facility] Work Phone: Bilirubin Ql (U) Negative [facility] Work Phone: Cocaine Ql (U) Negative [facility] Work Phone: Color Nom (U) Yellow [facility] Work Phone: Epithelial cells.squamous LM.HPF #/area (Urine sed) 5-9 /hpf High [facility] Work Phone: Glucose mass conc (U) 250 mg/dL High [facility] Work Phone: Hyaline casts LM Ql (Urine sed) 0-8 /lpf [facility] Work Phone: Ketones Ql (U) Trace High [facility] Work Phone: Leukocyte esterase Test strip Ql (U) Negative [facility] Work Phone: Nitrite Ql (U) Negative [facility] Work Phone: Opiates Ql (U) Negative [facility] Work Phone: pH (U) 5.0 [pH] 5.0-9.0 [facility] Work Phone: Phencyclidine Ql (U) Negative [facility] Work Phone: Protein Ql (U) Negative [facility] Work Phone: RBC #/vol (U) 50-100 /hpf [facility] Work Phone: Specific gravity Relative Density (U) 1.039 High 1.001-1.03 0 [facility] Work Phone: Urine Barbiturates Screen Negative [facility] Work Phone: Urine Collection Type Type [facility] Work Phone: Comment on above: CATHETERIZED Urine Drug Screen Comment See comment [facility] Work Phone: Comment on above: THESE ARE UNCONFIRME D RESULTS AND SHOULD NOT BE USED FOR LEGAL PURPOSES. DRUG CUT-OFF CONCENTRATION: AMPH 1000 ng/mL EWA 200 ng/mL JOHN 200 ng/mL COCM 300 ng/mL OP 300 ng/mL PCP 25 ng/mL THC 20 ng/mL Urine Marijuana (THC) Screen Negative [facility] Work Phone: Urine Occult Blood 3+ High [facility] Work Phone: Urine Transitional Epithelial Cells 3-4 /hpf [facility] Work Phone: Urobilinogen Qn (U) Normal mg/dL [facility] Work Phone: WBC #/vol (U) 0-1 /hpf [facility] Work Phone: Bedside Ionized Calcium (Deepti) 1.22 mmol/L 1.12-1.32 [facility] Work Phone: Bedside Total CO2 23 mmol/L 23-29 [facility] Work Phone: Chloride molar conc 110.0 mmol/L High 98-109 [facility] Work Phone: Creatinine mass conc 1.2 mg/dL 0.6-1.3 [facility] Work Phone: Comment on above: ER/ESD PHYSICIAN IS NOTIFIED/SHOWN ALL ISTAT RESULTS. CRITICAL VALUES MAY BE CONFIRMED BY LABORATORY TESTING IF DEEMED NESCESSARY BY ER ATTENDING DOCTOR Glucose mass conc 135 mg/dL High 70-105 [facility] Work Phone: Hematocrit Volume Fraction (Bld) 48.0 % 38.0-51.0 [facility] Work Phone: Hemoglobin mass conc (Bld) 16.3 g/dL 12.0-17.0 [facility] Work Phone: Potassium molar conc 4.7 mmol/L 3.5-4.9 [facility] Work Phone: Sodium molar conc 144 mmol/L 138-146 [facility] Work Phone: Urea nitrogen mass conc 15 mg/dL 8-26 [facility] Work Phone: Amylase enzyme act/vol 39 U/L 28-100 [facility] Work Phone: CK.MB mass conc 9.5 ng/mL High 0.6-6.3 [facility] Work Phone: Creatine Kinase MB Relative Index 1.5 0.00-2.50 [facility] Work Phone: Ethyl Alcohol Level < 5 mg/dL [facility] Work Phone: Glucose mass conc 140 mg/dL High 70-100 [facility] Work Phone: Comment on above: RANDOM GLUCOSE REFER ENCE RANGE IS DEPENDENT ON TIME AND CONTENT OF LAST MEAL.GLUCOSE OF MORE THAN 200MG/DL IN A NONSTRESSED,AMBULATORY SUBJECT SUPPORTS THE DIAGNOSIS OF DIABETES MELLITUS. Lipase enzyme act/vol 22.0 U/L 22-51 [facility] Work Phone: Percent Ethyl Alcohol < 0.005 % [facility] Work Phone: Troponin I.cardiac mass conc ng/mL 0-0.02 [facility] Work Phone: Comment on above: [place] Cut off value > or equal to 0.03 ng/mL in conjunction with clinical conditions of myocardial infarction. ([email or web address]) Glucose mass conc 134 mg/dL [facility] Work Phone: Hemoglobin A1c/Hemoglobin.total mass fraction (Bld) 6.3 % High 4.3-5.6 [facility] Work Phone: Comment on above: Increased risk for d iabetes: 5.7 - 6.4 Diabetes: >6.4 Glycemic control for adults with diabetes: <7.0 Vital Signs Date Time Vital Sign Value Performing Clinician Facility 11-05-2022 14:30-0500 Diastolic blood pressure 72 mm[Hg] [address] Other [facility] [email or web address] Other 11-05-2022 14:30-0500 SaO2% (BldA) [Mass fraction] 97 % [address] Other [facility] Other 11-05-2022 14:30-0500 Systolic blood pressure 118 mm[Hg] [address] Other [employer] Other 10-18-2022 14:00-0500 Body weight 96.[address] Other [employer] Other 10-18-2022 14:00-0500 Diastolic blood pressure 64 mm[Hg] [address] Other [employer] Other 10-18-2022 14:00-0500 SaO2% (BldA) [Mass fraction] 98 % [address] Other [facility] [email or web address] Other 10-18-2022 14:00-0500 Systolic blood pressure 120 mm[Hg] [address] Other [facility] [email or web address] Other 07-20-2022 16:00-0500 Body temperature 97.4 [degF] MD Genesis Reynolds Work Phone: [facility] 07-20-2022 16:00-0500 Diastolic blood pressure 72 mm[Hg] MD Genesis Reynolds Work Phone: [facility] 07-20-2022 16:00-0500 Heart rate 61 /min MD Genesis Reynolds Work Phone: [facility] 07-20-2022 16:00-0500 Respiratory rate 16 /min MD Genesis Reynolds Work Phone: [facility] 07-20-2022 16:00-0500 SaO2% (BldA) [Mass fraction] 98 % MD Genesis Reynolds Work Phone: [facility] 07-20-2022 16:00-0500 Systolic blood pressure 159 mm[Hg] MD Genesis Reynolds Work Phone: [facility] 07-20-2022 06:00-0500 Body weight 95.3 kg MD Genesis Reynolds Work Phone: [facility] 07-18-2022 11:22-0500 Body height 177.8 cm MD Genesis Reynolds Work Phone: [facility] 07-17-2022 22:14-0500 Body height 177.8 cm MD Genesis Reynolds Work Phone: [facility] 07-17-2022 22:14-0500 Body temperature 97.5 [degF] MD Genesis Reynolds Work Phone: [facility] 07-17-2022 22:14-0500 Body weight 95.9 kg MD Genesis Reynolds Work Phone: [facility] 07-17-2022 22:14-0500 Diastolic blood pressure 87 mm[Hg] MD Genesis Reynolds Work Phone: [facility] 07-17-2022 22:14-0500 Heart rate 74 /min MD Genesis Reynolds Work Phone: [facility] 07-17-2022 22:14-0500 Respiratory rate 16 /min MD Genesis Reynolds Work Phone: [facility] 07-17-2022 22:14-0500 SaO2% (BldA) [Mass fraction] 99 % MD Genesis Reynolds Work Phone: [facility] 07-17-2022 22:14-0500 Systolic blood pressure 180 mm[Hg] MD Genesis Reynolds Work Phone: [facility] 02-13-2018 14:12-0400 Body Temperature 98 [degF] [facility]-13-[facility] 14:12-0400 BP Diastolic 74 mm[Hg] Bro Sanford [facility] 02-13-2018 14:12-0400 BP Systolic 113 mm[Hg] [facility] 02-13-2018 14:12-0400 Pulse Oximetry 95 % [facility] 02-13-2018 14:12-0400 Respiratory Rate 18 /min [facility] 02-11-2018 22:00-0400 Pulse (Heart Rate) 73 /min [facility] NEGATED: Highlighted row BMI (Body Mass Index) [facility] NEGATED: Highlighted row BMI (Body Mass Index) [facility] NEGATED: Highlighted row Height Bro Sanford [facility] NEGATED: Highlighted row Height [facility] Encounters Encounter Date Encounter Type Care Provider Facility Start: 11-10-2023 End: 11-11-2023 ambulatory SUSAN SANDRA [facility] Start: 11-10-2023 End: 11-10-2023 Subsequent hospital visit by physician Bro Sanford MD Work Phone: [facility] Start: 04-26-2023 End: 04-27-2023 ambulatory JUDY HURT [facility] Start: 04-25-2023 End: 04-26-2023 Emergency department patient visit BRO YAMILKA [facility] Start: 04-19-2023 ambulatory Danilo Hayes acility:[facility] Start: 01-17-2023 End: 01-17-[address] GENESIS REYNOLDS . Facility:[facility] Start: 12-06-2022 End: 12-06-[address] Other [employer] Other Start: 12-06-[address] [facility] Start: 11-15-2022 End: 11-17-2022 Evaluation and management of inpatient DR GENESIS REYNOLDS . Facility:[facility] Start: 11-13-2022 End: 11-13-[address] Other [employer] Other Start: 11-13-2022 Telephone encounter Benson Lnae [facility] Start: 11-05-2022 End: 11-05-[address] Other [employer] Other Start: 11-05-2022 Office outpatient vi sit [address] [facility] Start: 11-01-2022 End: 11-01-2022 ambulatory Genesis Reynolds Facility:[facility] Start: 11-01-2022 End: 11-01-2022 ambulatory MD Genesis Reynolds Work Phone: [facility] Work Phone: Start: 11-01-2022 End: 11-01-2022 Patient encounter procedure MD Genesis Reynolds Work Phone: [facility] [place] Work Phone: Start: 10-26-2022 End: 10-27-[address] GENESIS REYNOLDS . Facility:[facility] Start: 10-25-2022 (PROC) PROCEDURE Benson Rueda [facility] Start: 10-25-2022 End: 10-26-[address] GENESIS REYNOLDS . [employer] Other Start: 10-18-2022 End: 10-18-[address] Other [employer] Other Start: 10-18-2022 Office outpatient ne w [address] [facility] Start: 10-18-[address] [facility] Start: 08-22-2022 ambulatory Ms. [...] of inpatient MD Genesis Reynolds Work Phone: [facility] Start: 07-17-2022 End: 07-20-2022 observation encounter MD Genesis Reynolds Work Phone: [facility] Work Phone: Start: 07-15-2022 End: 07-16-[address] GENESIS REYNOLDS . Facility:[facility] Start: 06-21-2022 End: 06-22-[address] GENESIS REYNOLDS . Facility:[facility] Start: 05-13-2022 End: 05-16-2022 Evaluation and management of inpatient DR GENESIS REYNOLDS . Facility:[facility] Start: 05-07-[address] GENESIS REYNOLDS . Facili ty:[facility] Start: 12-17-2019 Preoperative state MD Genesis Reynolds Work Phone: [facility] Start: 12-24-2018 End: 12-24-2018 Patient encounter procedure [facility] Start: 02-08-2018 End: 02-13-2018 Evaluation and management of inpatient [facility] Start: 01-12-2018 End: 01-17-2018 Evaluation and management of inpatient [facility] Start: 04-02-2017 End: 04-05-2017 Evaluation and management of inpatient [facility] Start: 06-09-2006 End: 07-09-2006 Discharged Recurring [facility] Start: 04-09-2006 End: 05-09-2006 Discharged Recurring [facility] Start: 03-09-2006 End: 04-08-2006 Discharged Recurring [facility] Start: 02-22-2006 End: 03-08-2006 Discharged Recurring [facility] Start: 02-10-2006 End: 02-14-2006 [facility] Start: 05-10-2000 End: 06-08-2000 [facility] Start: 04-09-2000 End: 05-09-2000 [facility]charged [facility] Start: 03-09-2000 End: 04-08-2000 [facility] Start: 02-08-2000 End: 03-08-2000 [facility] Start: 01-08-2000 End: 02-07-2000 [facility] Start: 12-09-1999 End: 02-07-2000 [facility] Start: 11-08-1999 End: 12-08-1999 [facility] Start: 10-10-1999 End: 11-07-1999 [facility] Start: 09-09-1999 End: 10-09-1999 [facility] Start: 08-09-1999 End: 10-09-1999 [facility] Start: 07-10-1999 End: 08-08-1999 [facility] Start: 06-26-1999 End: 07-09-1999 Discharged Recurring Bro Sanford [facility] Start: 03-29-1998 End: 03-29-1998 Patient encounter procedure [facility] Start: 02-24-1987 End: 02-28-1987 Evaluation and management of inpatient Bro Sanford [facility] Start: 12-22-1986 End: 12-23-1986 Evaluation and management of inpatient Bro Sanford [facility] Procedures Date Procedure Procedure Detail Performing Clinician Start: 11-10-2023 Urnls dip stick/tabl et reagent auto microscopy Susan Sandra [employer]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 [employer]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 Work Phone: Start: 11-01-2022 X-ray of lumbar spin e, four views MD Genesis Reynolds Work Phone: Start: 07-19-2022 Radionuclide myocard ial perfusion stress study MD Genesis Reynolds Work Phone: Start: 07-17-2022 Plain chest X-ray MD Eddy Work Phone: Start: 01-14-2018 Clostridium difficil e assay Bro Sanford History of coronary artery bypass grafting Hx of CABG MD Genesis Reynolds Work Phone: SARS-CoV-2, Influenz a & RSV (PCR) MD Genesis Reynolds Work Phone: Plan of Treatment Date Care Activity Detail Author Start: 08-04-2032 DTaP/Tdap/Td vaccine (2 - Tdap) DTaP/Tdap/Td vaccine (2 - Tdap) [facility] Start: 04-26-2024 Lipid panel Lipids [facility] Start: 04-25-2024 GFR test (Diabetes, CKD 3-4, OR last GFR 15-59) GFR test (Diabetes, CKD 3-4, OR last GFR 15-59) [facility] Start: 08-05-2023 Annual Wellness Visi t (Medicare) Annual Wellness Visit (Medicare) [facility] Start: 05-10-2023 COVID-19 Vaccine ( season) COVID-19 Vaccine ( season) [facility] Start: 04-09-2023 Influenza vaccination Flu vaccine (# 1) [facility] Start: 07-20-2022 [facility] Start: 07-18-2022 Lipid panel [facility] Start: 07-17-2022 Hospital admission [facility] Start: 07-17-2022 Physical therapy procedure [facility] Start: 07-17-2022 Referral to manufacturing mechanic [facility] Start: 07-17-2022 Referral to occupati onal therapist [facility] Start: 07-17-2022 [facility] Start: 07-17-2022 [facility] Start: 2021 Abdominal aortic aneurysm screening AAA screen [facility] Start: 01-24-2021 Pneumococcal 65+ yea rs Vaccine (2 - PPSV23 or PCV20) Pneumococcal 65+ years Vaccine (2 - PPSV23 or PCV20) [facility] Start: 2016 Respiratory Syncytia l Virus (RSV) or age 60 yrs+ (1 - 1-dose 60+ series) Respiratory Syncytial Virus (RSV) or age 60 yrs+ (1 - 1-dose 60+ series) [facility] Start: 2006 Screening for malign ant neoplasm of lung Low dose CT lung screening &/or counseling [facility] Start: 2006 Shingles vaccine (1 of 2) Shingles vaccine (1 of 2) [facility] Start: 2001 Screening for malign ant neoplasm of colon [facility] Start: 1974 Glaucoma screening Diabetic retinal exam [facility] Start: 1974 Hepatitis C screening Hepatitis C sc reen [facility] Start: 1974 Urine screening for protein Diabetic Alb to Cr ratio (uACR) test [facility] Start: 1968 Depression Screen Depression Screen [facility] Start: 1966 Diabetic foot examination Diabetic foot exam [facility] Start: 1966 Hemoglobin A1c measurement A1C test (Diabetic or Prediabetic) [facility] Bacteria identified in Blood by Culture Blood Culture [facility] Blood culture for bacteria, including anaerobic screen Blood Culture [facility] End: 11-10-2023 Culture, Urine [facility] Work Phone: Comment on above: Once for 1 Occurrenc es starting 11/10/2023 until 11/10/2023 Patient referral [facility] Work Phone: [facility] Payers Date Payer Category Payer Self-pay 1959 Medicare [id number] 1959 Unknown [id number] 1956 Unknown [id number] 2.16.84 0.1.161019.3.579.2.593 1956 Unknown [id number] 2.16.84 0.1.393626.3.579.2.593 1956 Unknown [id number] 2.16.84 0.1.555917.3.579.2.593 1956 Unknown [id number] 2.16.84 0.1.450727.3.579.2.593 1956 Unknown [id number] 2.16.84 0.1.812013.3.579.2.593 1956 Unknown [id number] 2.16.84 0.1.835685.3.579.2.593 1956 Unknown [id number] 2.16.84 0.1.403675.3.579.2.593 1956 Unknown [id number] 2.16.84 0.1.215636.3.579.2.593 1956 Unknown [id number] 2.16.84 0.1.080498.3.579.2.593 1956 Unknown [id number] 2.16.84 0.1.552919.3.579.2.593 1956 Unknown [id number] 2.16. 840.1.274628.3.579.2.356 1956 Unknown [id number] 2.16. 840.1.389022.3.579.2.356 1956 Unknown [id number] 2.16. 840.1.514360.3.579.2.356 1956 Unknown [id number] 2.16. 840.1.040946.3.579.2.356 1956 Unknown [id number] 2.16. 840.1.494608.3.579.2.356 1956 Unknown [id number] 2.16. 840.1.249683.3.579.2.356 1956 Unknown [id number] 2.16.8 40.1.268116.3.579.2.173 Unknown [id number] Unknown [facility] [employer] [id number] Unknown [id number] 2.16.8 40.1.857678.3.579.2.531 Unknown [id number] 2.16.8 40.1.770943.3.579.2.531 Social History Date Type Detail Facility Start: 07-17-2022 End: 07-18-2022 Tobacco smoking status TNIS Smoker (finding) [facility] Start: 1955 Sex Assigned At Male [facility] Start: 04-25-2023 Sex Assigned At N [facility] [email or web address] Other Start: 12-26-2016 Tobacco smoking stat us [facility] Smokes tobacco daily [facility] History of tobacco use Cigarette Smoker B [facility] Start: 12-26-2016 End: 04-25-2023 Cigarettes smoked current (pack per day) - Reported 1.5 [facility] Start: 12-26-2016 Tobacco use and exposure Smokeless tobacco non-user [facility] Start: 04-25-2023 Alcohol intake 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 (finding) [facility] Start: 1955 Sex Assigned At Not on file B ON [facility] Medical Equipment Procedure Code Equipment Code Equipment Origin al Text Equipment Identifier Dates [id number] Start: 12-24-2018 End: 04-11-2019 Glucose test strips Start : 12-24-2018 End: 04-10-2019 Glucose test strips Start : 12-24-2018 End: 04-10-2019 Glucose test strips Start : 12-24-2018 End: 04-10-2019 Goals Date Patient Goal Desired Activity /State Functional Status Date Assessment Result Facility 07-20-2022 Functional status Patient at Baseline [facility] Work Phone: Mental Status Date Assessment Result Facility 07-20-2022 Cognitive function Cognitive Sta tus Patient at Baseline [facility] Work Phone: Clinical Notes 2018 to 11-05-2022 [...] (ICD-10 - G89.29) Follow up after procedure. [facility] Other 02-09-2023 Evaluation note* Encounter Date Diagnosis [...] cant remember who the surgeon was in [place]. He presents with his today, both the [...] negative findings were considered in medical decision-making. [facility] Other 11-11-2022 Discharge summary Author Sang Bauer [facility] July 20, 2022 6:39pm Note Date/Time July 20, 2022 3:04pm [facility] [address] [place] [address] Discharge Summary Signed Patient: Taylor Mcclellan MR#: [id number] : 1955 Acct:[id number] Age/Sex: 66 / M Adm Date: 2 Loc: Room: [address] [place] [address]: Sang Bauer MD Copies to: [...] affect Discharge Plan Discharge Plan Patient Disposition: [facility] Facility Activity: No Activity Restriction Diet: Low-Sodium [...] tablet 75 mg PO DAILY Discontinued hydrocodone-acetaminophen [Clio] 5-325 mg tablet 1 tab PO BID PRN (Reason: Pain) Qty: 0 0RF Other Ambulatory Orders: DME Home Medical Equipment (Routine) Timeframe: 20220720 Location: Determined by Patient Ordered By: Sang Bauer Follow Up: Lilai Hopper APRN [Nurse Practitioner] - 08/22/22 10:30 am Documented By: Sang Bauer MD 07/20/22 8007 Signed By: <Electronically signed by Sang Bauer MD> 07/20/22 0016 [facility] Work Phone: 1(337) 420-149711-11-2022 Progress note Author Itzel Adams [facility] July 20, 2022 8:06am Note Date/Time July 20, 2022 8:06am [facility] [address] [place], [place] [address] Cardiology Progress Note Signed Patient: Taylor Mcclellan SR MR#: [id number] : 1955 Acct:[id number] Age/Sex: 66 / M Adm Date: 2 Loc: Room: [address] [place] [address] Type: ADM INOo Attending Dr: Sang Bauer [...] it is a single-vessel bypass done in [place] record is not available patient and his cannot remember which hospital he had his surgery at. He does not follow with cardiology Qualifiers: Coronary Disease-Associated Artery/Lesion type: [place] artery [place] vs. transplanted heart: [place] heart Associated angina: without angina Qualified Code(s): I25.10 - Atherosclerotic heart disease of [place] coronary artery without angina pectoris Code(s): I25.10 - Atherosclerotic heart disease of [place] coronary artery without angina pectoris Status: Acute [...] 3. Stress test negative for ischemia or [place]. Patient can be discharged home cardiac chew Documented By: Itzel Adams MD 07/20/22804 Signed By: <Electronically signed by MD Itzel Adams> 07/20/22805 [facility] Work Phone: 1(322) 795-636011-10-2022 Progress note Author Sang Bauer [facility] July 19, 2022 4:57pm Note Date/Time July 19, 2022 4:57pm [facility] [address] [place] [address] Hospitalist Progress Note Signed Patient: Taylor Mcclellan MR#: [id number] : 1955 Acct:[id number] Age/Sex: 66 / M Adm Date: 2 Loc: 3T Room: [address] [place] [address] Type: ADM INOo Attending Dr: Sang Bauer [...] Dose Route Start Last Admin Trade Name Mandi PRN Reason Stop Dose Admin Acetaminophen 650 [...] Insuln.Pen SUBCUT 07/17/23 21:59 Not Given TID.WM.HS [facility] Protocol Lamotrigine 100 mg 07/18/22 12:00 [...] <Electronically signed by Sang Bauer MD> 07/19/22 8443 [facility] Work Phone: 1(582) 915-374711-10-2022 Progress note Author Itzel Adams [facility] July 19, 2022 8:35am Note Date/Time July 19, 2022 8:35am [facility] [address] [place] [address] Cardiology Progress Note Signed Patient: Taylor Mcclellan SR MR#: [id number] : 1955 Acct:[id number] Age/Sex: 66 / M Adm Date: 2 Loc: Room: [address] [place] [address] Type: ADM INOo Attending Dr: Sang Bauer [...] it is a single-vessel bypass done in [place] record is not available patient and his cannot remember which hospital he had his surgery at. He does not follow with cardiology Qualifiers: Coronary Disease-Associated Artery/Lesion type: [place] artery [place] vs. transplanted heart: [place] heart Associated angina: without angina Qualified Code(s): I25.10 - Atherosclerotic heart disease of [place] coronary artery without angina pectoris Code(s): I25.10 - Atherosclerotic heart disease of [place] coronary artery without angina pectoris Status: Acute [...] By: <Electronically signed by MD Itzel Adams> 07/19/2235 [facility] Work Phone: 1(735) 896-856011-09-2022 Progress note Author Sang Bauer [facility] July 18, 2022 3:24pm Note Date/Time July 18, 2022 3 :24pm [facility] [address] [place] [address] Hospitalist Progress Note Signed Patient: Taylor Mcclellan SR MR#: [id number] : 1955 Acct:[id number] Age/Sex: 66 / M Adm Date: 2 Loc: Room: [address] [place] [address] Type: ADM INOo Attending Dr: Sang Bauer [...] Dose Route Start Last Admin Trade Name Rohitq PRN Reason Stop Dose Admin Acetaminophen 650 [...] 50 Mg Tablet PO 07/18/23 21:59 QHS [facility] Aspirin 81 mg 07/18/22 12:00 07/18/22 11:47 [...] Ml Insuln.Pen SUBCUT 07/17/23 21:59 Not Given TID.WM.[facility] Protocol Lamotrigine 100 mg 07/18/22 12:00 07/18/22 [...] 11:15 Brexpiprazole [Rexulti] PO 07/18/23 11:14 1XD [facility] Ondansetron HCl 4 mg 07/17/22 18:33 [...] signed by Sang Bauer MD> 07/18/22 1524 [facility] Work Phone: [phone] 870-621611-09-2022 History and physical note Author Sang Bauer [facility] July 18, 2022 3:22pm Note Date/Time July 17, 2022 6 :41pm [facility] [address] [place] [address] Hospitalist H&P Signed Patient: Taylor Mcclellan MR#: [id number] : 1955 Acct:[id number] Age/Sex: 66 / M Adm Date: 2 Loc: Room: [address] [place] [address] Type: ADM INOo Attending Dr: Sang Bauer [...] at home. Reportedly patient was taken to [facility] couple days ago when he was confused [...] his live in a mobile home in [place]. Meds Medications and Allergies Allergies chlordiazepoxide [From [...] 07/17/22] hydrocodone 5 mg-acetaminophen 325 mg tablet (Clio) 1 tab PO BID PRN Pain #0 [...] % (Auto) 29.5 % (.) 07/17/22 15:44 [place] % (Auto) 5.4 % (.) 07/17/22 15:44 Eos % (Auto) 0.7 % (.) 07/17/22 15:44 Baso % (Auto) 1.0 % (.) 07/17/22 15:44 Neut # (Auto) 4.9 x10E3/uL (1.8-7.7) 07/17/22 15:44 Lymph # (Auto) 2.3 x10E3/uL (1.00-4.8) 07/17/22 15:44 [place] # (Auto) 0.4 x10E3/uL (0.0-0.8) 07/17/22 15:44 [...] code Documented By: Sang Bauer MD 07/17/22 1838 Signed By: <Electronically signed by Sang Bauer MD> 07/18/22 1523 [facility] Work Phone: 1([phone]) 819-337711-09-2022 Consult note Author Itzel Adams [facility] July 18, 2022 11:46am Note Date/Time July 18, 2022 1 1:43am [facility] [address] [place] [address] Cardiology Consult Note Signed Patient: Taylor Mcclellan MR#: [id number] : 1955 Acct:[id number] Age/Sex: 66 / M Adm Date: 2 Loc: Room: [address] [place] [address] Type: ADM INOo Attending Dr: Sang Bauer MD Copies to: MD Genesis Goetz MD Mourhaf A Traboulssi, MD~ Cardiology HPI History of Present Illness Consult Date: 07/18/22 Reason for Consult: Chest pain HPI: Mr. Mcclellan is a 66 year old male with known history of coronary artery disease and prior bypass surgery done in [place]. No records available. Patient report to have [...] his live in a mobile home in [place]. Meds Medications and Allergies Allergies chlordiazepoxide [From [...] 07/17/22] hydrocodone 5 mg-acetaminophen 325 mg tablet (Clio) 1 tab PO BID PRN Pain #0 [...] x10E3/uL Lymph # (Auto) 2.3 (1.00-4.8) x10E3/uL [place] # (Auto) 0.4 (0.0-0.8) x10E3/uL Eos # [...] @ 100 mls/hr IV ONCE ONE Rx #:[id number] Oral 0 / 0 50 / 50 [...] it is a single-vessel bypass done in [place] record is not available patient and his cannot remember which hospital he had his surgery at. He does not follow with cardiology Qualifiers: Coronary Disease-Associated Artery/Lesion type: [place] artery [place] vs. transplanted heart: [place] heart Associated angina: without angina Qualified Code(s): I25.10 - Atherosclerotic heart disease of [place] coronary artery without angina pectoris Code(s): I25.10 - Atherosclerotic heart disease of [place] coronary artery without angina pectoris (3) Hx [...] signed by MD Itzel Adams> 07/18/22 1146 [facility] Work Phone: 1([phone] 308-326311-08-2022 History and physical note Author Sang Bauer [facility] July 18, 2022 3:22pm Note Date/Time July 17, 2022 6 :41pm [facility] [address] [place] [address] Hospitalist H&P Signed Patient: Taylor Mcclellan SR MR#: [id number] : 1955 Acct:[id number] Age/Sex: 66 / M Adm Date: 2 Loc: Room: [address] [place] [address] Type: ADM INOo Attending Dr: Sang Bauer [...] at home. Reportedly patient was taken to [facility] couple days ago when he was confused [...] his live in a mobile home in [place]. Meds Medications and Allergies Allergies chlordiazepoxide [From [...] 07/17/22] hydrocodone 5 mg-acetaminophen 325 mg tablet (Clio) 1 tab PO BID PRN Pain #0 [...] % (Auto) 29.5 % (.) 07/17/22 15:44 [place] % (Auto) 5.4 % (.) 07/17/22 15:44 Eos % (Auto) 0.7 % (.) 07/17/22 15:44 Baso % (Auto) 1.0 % (.) 07/17/22 15:44 Neut # (Auto) 4.9 x10E3/uL (1.8-7.7) 07/17/22 15:44 Lymph # (Auto) 2.3 x10E3/uL (1.00-4.8) 07/17/22 15:44 [place] # (Auto) 0.4 x10E3/uL (0.0-0.8) 07/17/22 15:44 [...] code Documented By: Sang Bauer MD 07/17/22 1838 Signed By: <Electronically signed by Sang Bauer MD> 07/18/22 [facility] Work Phone: 1([phone]) 299-636001-07-2019 Consult note Author Itzel Adams [facility] July 18, 2022 11:46am Note Date/Time July 18, 2022 1 1:43am [facility] [address] [place] [address] Cardiology Consult Note Signed Patient: Taylor Mcclellan MR#: [id number] : 1955 Acct:[id number] Age/Sex: 66 / M Adm Date: 2 Loc: Room: [address] [place] [address] Type: ADM INOo Attending Dr: Sang Bauer MD Copies to: MD Genesis Goetz MD Mourhaf A Traboulssi, MD~ Cardiology HPI History of Present Illness Consult Date: 07/18/22 Reason for Consult: Chest pain HPI: Mr. Mcclellan is a 66 year old male with known history of coronary artery disease and prior bypass surgery done in [place]. No records available. Patient report to have [...] his live in a mobile home in [place]. Meds Medications and Allergies Allergies chlordiazepoxide [From [...] 07/17/22] hydrocodone 5 mg-acetaminophen 325 mg tablet (Clio) 1 tab PO BID PRN Pain #0 [...] x10E3/uL Lymph # (Auto) 2.3 (1.00-4.8) x10E3/uL [place] # (Auto) 0.4 (0.0-0.8) x10E3/uL Eos # [...] @ 100 mls/hr IV ONCE ONE Rx #:[id number] Oral 0 / 0 50 / 50 [...] it is a single-vessel bypass done in [place] record is not available patient and his cannot remember which hospital he had his surgery at. He does not follow with cardiology Qualifiers: Coronary Disease-Associated Artery/Lesion type: [place] artery [place] vs. transplanted heart: [place] heart Associated angina: without angina Qualified Code(s): I25.10 - Atherosclerotic heart disease of [place] coronary artery without angina pectoris Code(s): I25.10 - Atherosclerotic heart disease of [place] coronary artery without angina pectoris (3) Hx [...] signed by MD Itzel Adams> 07/18/22 1146 [facility] Work Phone: Discharge summary Author Sang Bauer [facility] July 20, 2022 6:39pm Note Date/Time July 20, 2022 3:04pm [facility] [address] [place] [address] Discharge Summary Signed Patient: Taylor Mcclellan SR MR#: [id number] : 1955 Acct:[id number] Age/Sex: 66 / M Adm Date: 2 Loc: Room: [address] [place] [address]: Sang Bauer MD Copies to: [...] affect Discharge Plan Discharge Plan Patient Disposition: [facility] Facility Activity: No Activity Restriction Diet: Low-Sodium [...] tablet 75 mg PO DAILY Discontinued hydrocodone-acetaminophen [Clio] 5-325 mg tablet 1 tab PO BID PRN (Reason: Pain) Qty: 0 0RF Other Ambulatory Orders: [facility] [place] Medical Equipment (Routine) Timeframe: 20220720 Location: Determined by Patient Ordered By: Sang Bauer Follow Up: Lilia Hopper APRN [Nurse Practitioner] - 08/22/22 10:30 am Documented By: Sang Bauer MD 07/20/22 1504 Signed By: <Electronically signed by Sang Bauer MD> 07/20/22 1701 [facility] Work Phone: Evaluation note* Diagnosis Onset Date Resolution Status Chest pain acute Coronary artery disease acut e Generalized weakness acute Hx of CABG acute Diabetes mellitus chronic HTN (hypertension) chronic [facility] Work Phone: Evaluation note* Diagnosis Onset Date Resolution Status Bipolar 1 disorder, depressed, severe acute Chest pain acute Coronary artery disease acut e Generalized weakness acute Hx of CABG acute Chronic back pain chronic Diabetes mellitus chronic HTN (hypertension) chronic [facility] Work Phone: Evaluation noteNo assessment information available [facility] Work Phone: Evaluation noteNo InformationNortLe[facility] [email or web address] Other History general Narrative - Reported* Type Description Date Medical History CABG Medical History BPH Medical History HTN Medical History Diabetes Medical History HLD Medical History lumbosacral spondylosis Medical History lumbar neuritis Medical History disorder of sacrum Surgical History previous back surgery Surgical History heart valve replacement Surgical History CABG Hospitalization History see above [place] [email or web address] Other Hospital Discharge instructions Additional Instructions SNF TO MANAGE: PT/OT to eval and treat Monitor VS per protocol--HTN Monitor FSBS Maintain high risk fall precautions Care to be managed by [facility] Work Phone: Progress note Author Sang Bauer [facility] July 18, 2022 3:24pm Note Date/Time July 18, 2022 3 :24pm [facility] [address] [place] [address] Hospitalist Progress Note Signed Patient: Taylor Mcclellan MR#: [id number] : 1955 Acct:[id number] Age/Sex: 66 / M Adm Date: 2 Loc: Room: [address] [place] [address] Type: ADM INOo Attending Dr: Sang Bauer [...] Insuln.Pen SUBCUT 07/17/23 21:59 Not Given TID.WM.HS [facility] Protocol Lamotrigine 100 mg 07/18/22 12:00 [...] 11:15 Brexpiprazole [Rexulti] PO 07/18/23 11:14 1XD [facility] Ondansetron HCl 4 mg 07/17/22 18:33 Ondansetron [...] signed by Sang Bauer MD> 07/18/22 1524 [facility] Work Phone: Progress note Author Itzel Adams [facility] July 19, 2022 8:35am Note Date/Time July 19, 2022 8:35am [facility] [address] [place] [address] Cardiology Progress Note Signed Patient: Taylor Mcclellan SR MR#: [id number] : 1955 Acct:[id number] Age/Sex: 66 / M Adm Date: 2 Loc: Room: [address] [place] [address] Type: ADM INOo Attending Dr: Sang Bauer [...] it is a single-vessel bypass done in [place] record is not available patient and his cannot remember which hospital he had his surgery at. He does not follow with cardiology Qualifiers: Coronary Disease-Associated Artery/Lesion type: [place] artery [place] vs. transplanted heart: [place] heart Associated angina: without angina Qualified Code(s): I25.10 - Atherosclerotic heart disease of [place] coronary artery without angina pectoris Code(s): I25.10 - Atherosclerotic heart disease of [place] coronary artery without angina pectoris Status: Acute [...] <Electronically signed by MD Itzel Adams> 07/19/22834 [facility] Work Phone: Progress note Author Sang Lizette [facility] July 19, 2022 4:57pm Note Date/Time July 19, 2022 4:57pm [facility] [address] [place] [address] Hospitalist Progress Note Signed Patient: Taylor Mcclellan SR MR#: [id number] : 1955 Acct:[id number] Age/Sex: 66 / M Adm Date: 2 Loc: Room: [address] [place] [address] Type: ADM INOo Attending Dr: Sang Bauer [...] <Electronically signed by Sang Bauer MD> 07/19/221656 [facility] Work Phone: Progress note Author Itzel Adams [facility] July 20, 2022 8:06am Note Date/Time July 20, 2022 8:06am [facility] [address] [place] [address] Cardiology Progress Note Signed Patient: Taylor Mcclellan SR MR#: [id number] : 1955 Acct:[id number] Age/Sex: 66 / M Adm Date: 2 Loc: 3T Room: [address] [place] [address] Type: ADM INOo Attending Dr: Sang Bauer [...] it is a single-vessel bypass done in [place] record is not available patient and his cannot remember which hospital he had his surgery at. He does not follow with cardiology Qualifiers: Coronary Disease-Associated Artery/Lesion type: [place] artery [place] vs. transplanted heart: [place] heart Associated angina: without angina Qualified Code(s): I25.10 - Atherosclerotic heart disease of [place] coronary artery without angina pectoris Code(s): I25.10 - Atherosclerotic heart disease of [place] coronary artery without angina pectoris Status: Acute [...] 3. Stress test negative for ischemia or [place]. Patient can be discharged home cardiac chew Documented By: Itzel Adams MD 07/20/22804 Signed By: <Electronically signed by MD Itzel Adams> 07/20/22805 [facility] Work Phone: Summary Purpose Family History No Family History Records Found Relationship Condition Age at Onset Recorded Date/T mahi Not Specified Cardiac disease Unknown Epilepsy Unknown brother Epilepsy Unknown Advance Directives No Advanced Directives Records Found Advance Directive Response Recorded Date/ Time Advance Directives Yes January 23 4:30pm Latest Code Status on File Code Status Date Activated Date Inactivated Comments Full Code 01/01/2017 11:00 AM 01/01/2017 1:57 PM Chief Complaint and Reason for Visit Chief [...] section and content) DATE CREATED AUTHOR 10/15/2019 [facility] DATE CREATED AUTHOR AUTHOR'S ORGANIZ ATION 11/29/2021 [facility] DATE CREATED AUTHOR AUTHOR'S ORGANIZ ATION 01/21/2023 [facility] DATE CREATED AUTHOR AUTHOR'S ORGANIZ ATION 01/23/2023 [facility] DATE CREATED AUTHOR AUTHOR'S ORGANIZ ATION 08/18/[address] [facility] DATE CREATED AUTHOR AUTHOR'S ORGANIZ ATION 11/11/2023 [facility] Care Teams (unrecognized sec tion and content) [...] Ramirez MD Other Provider Active Pily Winslow [facility] Other Provider Active Adelaide Leonardo MD Other [...] Active Benson Lane MD Attending Provider Active [employer] Relationship Specialty Start Date End Date Bro Sanford MD PCP - General Family Medicine 12/26/16 Goals (unrecognized section and content) Goals may [...] BE BASED ON THE PRIMARY CLINICAL RECORDS. [employer] provides no warranty or guarantee of the accuracy or completeness of information in this document.
[2024-01-10 08:29] LABS: Basophils Absolute Auto 0.1 10^3/uL (0.0-0.1); Basophils Percent Auto 0.9 % (0.2-2.0); Eosinophils Absolute Auto 0.2 10^3/uL (0.0-0.7); Eosinophils Percent Auto 2.2 % (0.9-7.0); Hematocrit 44.4 % (42.0-54.0); Hemoglobin 13.8 g/dL (14.0-18.0); Immature Granulocytes Abs Auto 0.02 10^3/uL (0.00-0.03); Immature Granulocytes Pct Auto 0.3 % (0.0-0.5); Lymphocytes Absolute Auto 2.9 10^3/uL (1.2-3.8); Lymphocytes Percent Auto 42.4 % (20.5-60.0); Mean Corpuscular HGB Conc 31.1 g/dL (29.9-35.2); Mean Corpuscular Hemoglobin 30.1 pg (25.9-34.0); Mean Corpuscular Volume 96.9 fL (80.0-94.0); Mean Platelet Volume 11.6 fL (9.5-13.5); Monocytes Absolute Auto 0.5 10^3/uL (0.3-0.8); Monocytes Percent Auto 7.6 % (1.7-12.0); Neutrophils Absolute Auto 3.2 10^3/uL (1.4-6.5); Neutrophils Percent Auto 46.6 % (43.0-75.0); Platelet Count 230 10^3/uL (150-450); Red Blood Count 4.58 10^6/uL (4.70-6.10); Red Cell Distribution Width 13.9 % (11.0-15.0); White Blood Count 6.8 10^3/uL (4.0-11.0)
[2024-01-10 09:01] LABS: Estimated Average Glucose 111 mg/dL; Glycohemoglobin A1C 5.5 % (4.5-6.2)
[2024-01-10 09:10] LABS: BUN Creatinine Ratio 15.5; Calcium 9.1 mg/dL (8.5-10.1); Carbon Dioxide 28.8 mmol/L (21.0-32.0); Chloride 112 mmol/L (98-107); Estimated GFR (African America >60 (>=60); Estimated GFR (Non-African Ame >60 (>=60); Glucose 79 mg/dL (74-106); Potassium 3.8 mmol/L (3.5-5.1); Sodium 148 mmol/L (136-145)
[2024-01-10 11:28] LABS: INR 0.99; Partial Thromboplastin Time 29.9 sec (22.3-36.2); Prothrombin Time 10.5 sec (9.0-11.6)
== END 2024-01-10 02:43 | disposition home or self-care (01) ==
LOC: LAB 02:42
PROVIDERS: PCP Family Medicine
DX: M48.062 Spinal stenosis, lumbar region with neurogenic claudication (principal)
CPT/HCPCS: 36415; 80048; 83036; 85025; 85610; 85730; 87081

== ENCOUNTER 2024-01-20 14:14 | Outpatient (OUT) | payer MEDICARE, BC, SELFPAY ==
--- NOTE | 2024-01-20 | ECG_ITS ---
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
--- NOTE | 2024-01-20 14:35 | XR_ITS ---
The [address] [address] Patient Name: TAYLOR MCCLELLAN MRN: [id number] date: 1955 Sex: M Assigned Patient Location: CARD Current Patient Location: CARD Accession/Order Number: [id number] Exam Date: 01/20/2024 14:38 Report Date: 01/20/2024 15:30 At the request of: IMELDA VICKERS Procedure: XR chest 2V EXAM: XR chest 2V HISTORY: Pre Operative Evaluation, Hypertension, Diabetes COMPARISON: 11/05/2023 TECHNIQUE: Upright PA and lateral chest x-ray FINDINGS: The heart is not enlarged and the vasculature is not distended. Slight prominence of interstitial markings are again seen throughout the lungs. No acute infiltrate, effusion or pneumothorax is identified. Multiple sternal wire sutures are present. The osseous structures are grossly intact. The lateral view is significantly limited secondary to the position of the patient's arms. XR/XR chest 2V IMPRESSION: No apparent acute infiltrate or evidence of cardiac decompensation. Mild prominence of interstitial markings throughout the lungs appears chronic in nature. The overall appearance of the chest has not changed significantly. Electronically authenticated by: MAURIZIO TORIBIO Date: 01/20/2024 15:30
== END 2024-01-20 14:15 | disposition home or self-care (01) ==
LOC: CARD 14:15
PROVIDERS: PCP Family Medicine
DX: Z01.810 Encounter for preprocedural cardiovascular examination (principal); M48.062 Spinal stenosis, lumbar region with neurogenic claudication
CPT/HCPCS: 71046; 93005

== ENCOUNTER 2024-02-11 07:36 | Outpatient (OUT) | payer MEDICARE, BC, SELFPAY ==
--- NOTE | 2024-02-11 07:15 | NM_ITS ---
Patient Name: TAYLOR MCCLELLAN MR#: [id number] : 1955 Exam Date: 02/11/2024 Ordering Doctor: DR GENESIS REYNOLDS . RADIOLOGY REPORT PROCEDURE: NM BINDU PERF SPECT REST STR COMPARISON: None. INDICATIONS: PRE PROCEDURE CARDIOVASCULAR EXAM, HISTORY OF CABG TECHNIQUE: Exam Description: Stress/Rest one day protocol gated SPECT Rest Imagin.9 mCi Tc-99m Cardiolite IV on 02/11/2024 Stress Imaging 30.2 mCi Tc-99m Cardiolite IV on 02/11/2024 Exercise Protocol: 0.4 mg Lexiscan given IV Heart Rate (bpm): Rest: 56 Max: 68 PMHR: 44 Blood Pressure: Rest: 158/78 Max: 158/78 Symptoms: Rest and peak stress ECG findings were normal and the exercise portion of the study was normal per attending physician Dr. Solorzano . For more details please see separate cardiac stress test report. FINDINGS: QUALITY OF STUDY: Excellent. PERFUSION DEFECT: LOCATION: Basal inferior. Mid-inferior. Apical inferior. SIZE: Medium (3-4 segments). SEVERITY: Moderate. TYPE: Mixed. WALL MOTION: Moderate hypokinesis: LV SIZE: Normal. 124 mL. TID / TCD: Yes; 1.3 LVEF: Abnormal. Calculated EF 48%. SUMMARY: Myocardial perfusion imaging study has ABNORMAL findings. CONCLUSION: 1. Moderately decreased perfusion of the inferior wall with minimal reversibility during rest imaging. 2. Global moderate hypokinesis of the left ventricle. 3. Abnormal transient ischemic dilation of left ventricle. 4. Abnormal, low ejection fraction of 48%. 5. Left ventricle size is 124 mL (upper limits of normal is 125). Dictated by: Glen Adorno M.D. on 02/12/2024 at 14:19 Approved by: Glen Adorno M.D. on 02/12/2024 at 14:24
--- OUTSIDE RECORDS SUMMARY | 2024-02-11 07:40 | XMS_ITS | CCD ---
Author Organization [facility] Care Team Providers Care Financial Services Education Consultant Name Role Phone Bro Sanford Primary Care Physician Unavailab Lior Dow Attending Physician Unavailable MD Genesis Reynolds Primary Care Provider MD Segundo Huston Emergency Provider [phone] MD Sang Bauer Admit Provider MD Jodie Bauerop Attending Provider LEXIE Mckeon Other Provider Unavailable DO Lawrence Lee Other Provider [phone] MD Kaden Summers Other Provider MD Edinson Bustamante Other Provider MD Itzel Adams Other Provider MD Ramos Fraga Other Provider LILA Hopper Other Provider MD Cinthia Rae Other Provider MD Ramón Ayala Other Provider MD Flavio Ramirez Other Provider Goldy [facility] Pily Espinal Other Provider [phone] MD Adelaide Leonardo Other Provider MD Itzel Adams Referring Provider MD Genesis Reynolds Primary Care Provider MD Benson Lane S Attending Provider [phone] Un[address] GENESIS VILLANUEVA Admitting Unavailable HOY ., DR HURTADO Primary Care Unavailable HOY ., DR HURTADO Attending Unavailable HOY ., DR HURTADO Primary Care Unavailable ANA PAULA ., LAVELL Admitting Unavailable ANA PAULA ., LAVELL Consulting Unavailable ANA PAULA ., LAVELL Attending Unavailable MOMO KHAN Consulting Unavailable GAIL ., DR HURTADO Primary Care Unavailable AUBREY POON Consulting Unavailable AUBREY POON Attending Unavailable AUBREY POON Admitting Unavailable HOY ., DR HURTADO Primary Care Unavailable DIAB ., PHILL Admitting Unavailable DIAB ., PHILL Attending Unavailable ALESIA FERNANDEZ Consulting Unavailable KENJI PADNEYISTIN M Consulting Unavailable DIAB ., PHILL Consulting Unavailable HOY ., DR HURTADO Primary [...] Unavailable HOY ., DR HURTADO Consulting Unavailable HOY ., DR HURTADO Attending Unavailable HOJung ., DR HURTADO Admitting Unavailable SARAI AVALOS Consulting Unavailable ANA PAULA ., LAVELL Consulting Unavailable ДМИТРИЙ OSWALD Consulting Unavailable NIGEL TADEO Consulting Unavailable MENDOZA BEE Consulting Unavailable MILAD ABARCA Consulting Unavailable HOY ., DR HURTADO Primary Care Unavailable HOY ., DR HURTADO Attending Unavailable HOY ., DR HURTADO Consulting Unavailable HOY ., DR HURTADO Admitting Unavailable NADYUSUF, DR BRO Diaz Consulting Unavailable TEMI RUSSO [...] WERNER Admitting Unavailable Itzel Adams Attending Unavailable Itzel Adams Attending Unavailable Itzel Adams Attending Unavailable Itzel Adams Attending Unavailable Sharad, MsElizabeth Moore Attending Genesis Ozuna Primary Care Unavailable Domingo, Benson S Admitting Unavailable Domingo, Benson S Attending Unavailable Danilo Park Admitting Unavailab Danilo Ross Attending Unavailab Genesis Ivy Primary Care Unavailable Bro Sanford MD Primary Care Provider JUDY HURT Referring Unavailable BRO SANFORD Primary Care UnavailSUSAN Hidalgo Referring Unavailable BRO SANFORD Primary Care Unavailabl e CLARIBEL, BRO PRATHER Primary Care Unavailabl e ANTHONY GREENE Attending Unavailable Allergies Allergy Classification Reported Allergen(s) Allergy Type Date of Onset Reaction(s) Facility (4 sources) Amitriptyline; Translations: [Amitriptyline] Drug Allergy 01-24-20 19 Unknown Reaction [facility] (12 sources) atorvastatin; Translations: [atorvastatin] Drug Allergy 01-24-20 19 Unknown Reaction, Unknown [facility] (6 sources) chlordiazePOXIDE; Translations: [chlordiazepoxide] Drug Allergy 01-24-20 19 Unknown Reaction [facility] (6 sources) clidinium; Translations: [clidinium] Drug Allergy 01-24-20 19 Unknown Reaction [facility] (14 sources) fentaNYL; Translations: [Fentanyl] Drug Allergy 12-27-19 17 Unknown Reaction, Unknown [facility] (7 sources) venlafaxine; Translations: [venlafaxine] Drug Allergy 05-13-20 14 Other (See Comments) [facility] (2 sources) Citalopram; Translations: [Citalopram] Drug Allergy 07-17-20 Unknown Reaction [facility] (4 sources) Simvastatin; Translations: [simvastatin] Drug Allergy 07-17-20 22 Unknown Reaction [facility] (5 sources) Succinylcholine; Translations: [Succinylcholine] Drug Allergy 09-09-19 05 Unknown Reaction [facility] (7 sources) Amitriptyline; Translations: [Elavil] Drug Allergy 04-20-20 14 Unknown [facility] (6 sources) chlordiazePOXIDE / clidinium Drug Allergy Unknown [facility] Other (7 sources) venlafaxine; Translations: [Effexor] Drug Allergy 04-06-20 14 Unknown [facility] (1 source) buPROPion Drug Allergy [facility] (1 source) Citalopram Drug Allergy 12-31-19 20 [facility] (1 source) mirabegron Drug Allergy [facility] (1 source) Simvastatin Drug Allergy [facility] (1 source) tiZANidine Drug Allergy [facility] (1 source) Amitriptyline Drug Allergy 05-18-20 14 [facility] [employer] Phone: Medications Current Medications Medication Drug Class(es) [...] 11, 2018 11:00pm December 23, 2018 4:29pm [id number] 200 actuat albuterol 0.09 mg/actuat metered dose [...] tablet by mouth twice daily Hydrocodone-Aceta minophen ([place]) 5-325 mg tablet Discontinued 1 TAB PO [...] 2019 9:31pm take 3 tablets by mo 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; Translations: [DIE MAKER 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/ANTIPLAT LETS] Onset: 12-20-2022 Episodic Other [...] 06-25-2022 07-17-2022 Episodic Other aftercare (1 source) halfway (current) use of aspirin; Translations: [DIE MAKER CURRENT USE OF ASPIRIN] Onset: 07-20-2022 Episodic [...] w/ Microon 2023 Bacteria TRACE Abnormal NONE [facility] Comment on above: Performed By: #### U AMI #### [facility] [address] [place] [address] Forming Machine Tender: Sarai Howell MD Bilirubin, SemiQt,Ur Negative Normal NEG [facility] Comment on above: Performed By: #### U AMIC #### [facility] [address] [place], [place] [id number] Forming Machine Tender: Sarai Howell MD Blood, Urine Negative Normal NEG [facility] Comment on above: Performed By: #### U AMIC #### [facility] [address] [place], [place] [id number] Forming Machine Tender: Sarai Howell MD Clarity (U) Clear Normal CLEAR [facility] Comment on above: Performed By: #### U AMIC #### [facility] [address] [place] [address] Forming Machine Tender: Sarai Howell MD Color (U) Yellow Normal YEL [facility] Comment on above: Performed By: #### U AMIC #### [facility] [address] [place], [place] [id number] Forming Machine Tender: Sarai Howell MD Epithelial cells LM Ql (Urine sed) 0 TO 2 Normal 0-5 [facility] Comment on above: Performed By: #### U AMIC #### [address] [place], [place] [id number] Forming Machine Tender: Sarai Howell MD Glucose Ql (U) Negative Normal NEG [facility] Comment on above: Performed By: #### U AMIC #### [facility] [address] [place], [place] [id number] Forming Machine Tender: Sarai Howell MD Ketones Ql (U) Negative Normal NEG [facility] Comment on above: Performed By: #### U AMIC #### [facility] [address] [place] [address] Forming Machine Tender: Sarai Howell MD Leukocyte esterase Test strip Ql (U) Negative Normal NEG [facility] Comment on above: Performed By: #### U AMIC #### [facility] [address] [place], [place] [phone] Forming Machine Tender: Sarai Howell MD Mucus Strands TRACE Abnormal NONE [facility] Comment on above: Performed By: #### U AMIC #### [facility] [address] [place], [place] [id number] Forming Machine Tender: Sarai Howell MD Nitrite,Ur Negative Normal NEG [facility] Comment on above: Performed By: #### U AMIC #### [facility] [address] [place], [place] [id number] Forming Machine Tender: Sarai Howell MD PH,Ur 7.0 Normal 5.0-9.0 [facility] Comment on above: Performed By: #### U AMIC #### [facility] [address] [place], [place] [id number] Forming Machine Tender: Sarai Howell MD Protein Ql (U) Negative Normal NEG [facility] Comment on above: Performed By: #### U AMIC #### [facility] [address] [place], [place] [id number] Forming Machine Tender: Sarai Howell MD Spec. [place],Ur 1.015 Normal 1.010-1.02 0 [facility] Comment on above: Performed By: #### U AMIC #### [facility] [address] [place], [place] [id number] Forming Machine Tender: Sarai Howell MD Urine RBC's 0 TO 2 Normal 0-2 [facility] Comment on above: Performed By: #### U AMIC #### [facility] [address] [place] [address] Forming Machine Tender: Sarai Howell MD Urine WBC's 2 TO 5 Normal 0-5 [facility] Comment on above: Performed By: #### U AMIC #### [facility] [address] [place] [address] Forming Machine Tender: Sarai Howell MD Urobilinogen,Ur Normal Normal 0.0-1.0 [facility] Comment on above: Performed By: #### U AMI #### [facility] [address] [place] [address] Forming Machine Tender: Sarai Howell MD Urinalysis with Microscopico n 11-10-2023 Bacteria LM Ql (Urine sed) TRACE Abnormal None [facility] Bilirubin Ql (U) Negative NEGATIVE [facility] Clarity (U) Clear Clear [facility] Color (U) Yellow Yellow [facility] Epithelial cells LM.HPF (Urine sed) [#/Area] 0 TO 2 [facility] Glucose Test strip (U) [Mass/Vol] Negative NEGATIVE mg/dL [facility] Hemoglobin Auto test strip Ql (U) Negative NEGATIVE [facility] Interpretation and review of laboratory results Abnormal [facility] Ketones (U) [Mass/Vol] Negative NEGAT MELISSA mg/dL [facility] Leukocyte esterase Test strip Ql (U) Negative NEGATIVE [facility] Mucus Ql (Urine sed) TRACE Abnormal None [facility] Nitrite Ql (U) Negative NEGATIVE [facility] pH (U) 7.0 [pH] 5.0 - 9.0 [facility] Protein (U) [Mass/Vol] Negative NEGAT MELISSA mg/dL [facility] RBC LM.HPF (Urine sed) [#/Area] 0 TO 2 [facility] Specific gravity (U) [Rel density] 1.015 1.010 - 1.020 [facility] Urobilinogen Qn (U) Normal 0.0 - 1. 0 EU/dL [facility] WBC LM.HPF (Urine sed) [#/Area] 2 TO 5 [facility] Cult, Bloodon 04-30-2023 Cult, Blood Specimen Description .BLOOD Special Requests lhand, 9ml, 2 bottles Culture NO GROWTH 5 DAYS Report Status FINAL 04/30/2023 Normal [facility] Comment on above: Performed By: #### B CUL2 #### [facility] [address] [place] [address] Forming Machine Tender: Sarai Howell MD Cult,Bloodon 04-30-2023 Cult,Blood Specimen Description .BLOOD Special Requests LAC, 20ML Culture NO GROWTH 5 DAYS Report Status FINAL 04/30/2023 Normal [facility] Comment on above: Performed By: #### B C #### [facility] [address] [place] [address] Forming Machine Tender: Sarai Howell MD Lipid Profileon 04-26-2023 Cholesterol [Mass/Vol] 171 mg/dL Normal <200 [facility] Comment on above: Result Comment: Cholesterol Guidelines: <200 Desirable 200-240 Borderline >240 Undesirable Performed By: #### L IPR #### [address] [address] Forming Machine Tender: Spencer Tapai MD Cholesterol in HDL [Mass/Vol] 30 mg/dL Low >40 [facility] Comment on above: Result Comment: HDL Guidelines: <40 Undesirable 40-59 Borderline >59 Desirable Performed By: #### L IPR #### [address] [address] Forming Machine Tender: Spencer Tapia MD Cholesterol in LDL [Mass/Vol] 112 mg/dL Normal 0-130 [facility] Comment on above: Result Comment: LDL Guidelines: <100 Desirable 100-129 Near to/above Desirable 130-159 Borderline >159 Undesirable Direct (measured) LDL and calculated LDL are not interchangeable tests. Performed By: #### L IPR #### [facility] [address] [place] [address] Forming Machine Tender: Spencer Tapia MD Cholesterol.total/Chol esterol in HDL [Mass ratio] 5.7 {ratio} High <5 [facility] Comment on above: Performed By: #### L IPR #### [facility] [address] [place] [address] Forming Machine Tender: Spencer Tapia MD Triglyceride [Mass/Vol] 143 mg/dL Normal <150 [facility] Comment on above: Result Comment: Triglyceride Guidelines: <150 Desirable 150-199 Borderline 200-499 High >499 Very high Based on AHA Guidelines for fasting triglyceride, June 2012. Performed By: #### L IPR #### [facility] [address] [place] [address] Forming Machine Tender: Spencer Tapia MD Basic Metabolic Profon 04-25 Anion gap [Moles/Vol] 13 mmol/L Normal - [facility] Comment on above: Performed By: #### T ANJALI AYALA, BMP #### [facility] [address] [place], [place] [address] Forming Machine Tender: Sarai Howell MD BUN/CRE Ratio 14 Normal - [facility] Comment on above: Performed By: #### T ANJALI AYALA, BMP #### [facility] [address] [place], [place] [address]683 Forming Machine Tender: Sarai Howell MD Calcium [Mass/Vol] 9.3 mg/dL Normal 8.6-10.4 [facility] Comment on above: Performed By: #### T ANJALI AYALA, BMP #### [facility] [address] [place], [place] [phone] Forming Machine Tender: Saari Howell MD Chloride [Moles/Vol] 101 mmol/L Normal 98-107 [facility] Comment on above: Performed By: #### T ANJALI AYALA, BMP #### [facility] [address] [place], [place] [phone] Forming Machine Tender: Sarai Howell MD CO2 [Moles/Vol] 25 mmol/L Normal 20-31 [facility] Comment on above: Performed By: #### T ANJALI AYALA, BMP #### [facility] [address] [place], [place] 140[address]83 Forming Machine Tender: Sarai Howell MD Creatinine [Mass/Vol] 1.3 mg/dL High 0.7-1.2 [facility] Comment on above: Performed By: #### ANJALI PRADHAN BMP #### [facility] [address] [place] [address] Forming Machine Tender: Sarai Howell MD GFR/1.73 sq M.predicted among non-blacks MDRD (S/P/Bld) [Vol rate/Area] mL/min/{1.73_m2} Normal >60 [facility] Comment on above: Result Comment: These [...] Performed By: #### ANJALI PRADHAN, BMP #### [facility] [address] [place], [place] [phone] Forming Machine Tender: Sarai Howell MD Glucose [Mass/Vol] 87 mg/dL Normal 70-99 [facility] Comment on above: Performed By: #### ANJALI PRADHAN, BMP #### [address] [place], [place] [address]83 Forming Machine Tender: Sarai Howell MD Potassium [Moles/Vol] 3.9 mmol/L Normal 3.7-5.3 [facility] Comment on above: Performed By: #### T ANJALI AYALA, BMP #### [facility] [address] [place] [address] Forming Machine Tender: Sarai Howell MD Sodium [Moles/Vol] 139 mmol/L Normal 135-144 [facility] Comment on above: Performed By: #### ANJALI PRADHAN, BMP #### [facility] [address] [place], [place] [address]83 Forming Machine Tender: Sarai Howell MD Urea nitrogen [Mass/Vol] 18 mg/dL Normal 8-23 [facility] Comment on above: Performed By: #### ANJALI PRADHAN, BMP #### [facility] [address] [place] [id number] Forming Machine Tender: Sarai Howell MD CBC with Diffon 04-25-2023 Abs. Basophil 0.04 k/uL Normal 0.00-0.20 [facility] Comment on above: Performed By: #### ANJALI PRADHAN, BMP #### [facility] [address] [place] [id number] Forming Machine Tender: Sarai Howell MD Abs.Imm.Granulocyte 0.04 k/uL Normal 0.00-0.30 [facility] Comment on above: Performed By: #### ANJALI PRADHAN, BMP #### [address] [place], [place] [address] Forming Machine Tender: Sarai Howell MD Abs.Neutrophil (Seg) 5.64 k/uL Normal 1.50-8.10 [facility] Comment on above: Performed By: #### ANJALI PRADHAN, BMP #### [address] [place], [facility]83 Forming Machine Tender: Sarai Hoewll MD Basophils/100 WBC (Bld) 1 % Normal 0-2 [facility] Comment on above: Performed By: #### ANJALI PRADHAN, BMP #### [facility] [address] [place], [facility]83 Forming Machine Tender: Sarai Howell MD Eosinophils (Bld) [#/Vol] 0.09 10*3/uL Normal 0.00-0.44 [facility] Comment on above: Performed By: #### ANJALI PRADHAN, BMP #### [facility] [address] [place], [place] [address]83 Forming Machine Tender: Sarai Howell MD Eosinophils/100 WBC (Bld) 1 % Normal 1-4 [facility] Comment on above: Performed By: #### ANJALI PRADHAN, BMP #### [address] [place], [place] [address]80483 Forming Machine Tender: Sarai Howell MD Erythrocyte distribution width (RBC) [Ratio] 15.4 % High 11.8-14.4 [facility] Comment on above: Performed By: #### ANJALI PRADHAN, BMP #### [facility] [address] [place], [facility]83 Forming Machine Tender: Sarai Howell MD Hematocrit (Bld) [Volume fraction] 40.6 % Low 40.7-50.3 [facility] Comment on above: Performed By: #### ANJALI PRADHAN, BMP #### [address] [place], [facility]83 Forming Machine Tender: Sarai Howell MD Hemoglobin (Bld) [Mass/Vol] 13.1 g/dL Normal 13.0-17.0 [facility] Comment on above: Performed By: #### ANJALI PRADHAN, BMP #### [address] [place], [facility]83 Forming Machine Tender: Sarai Howell MD Immature granulocytes/100 WBC (Bld) 1 % High 0 [facility] Comment on above: Performed By: #### ANJALI PRADHAN, BMP #### [address] [place], [facility]83 Forming Machine Tender: Sarai Howell MD Lymphocytes (Bld) [#/Vol] 1.86 10*3/uL Normal 1.10-3.70 [facility] Comment on above: Performed By: #### ANJALI PRADHAN, BMP #### [address] [place], [place] [id number] Forming Machine Tender: Sarai Howell MD Lymphocytes/100 WBC (Bld) 22 % Low 24-43 [facility] Comment on above: Performed By: #### ANJALI PRADHAN, BMP #### [facility] [address] [place] [id number] Forming Machine Tender: Sarai Howell MD MCH (RBC) [Entitic mass] 29.0 pg Normal 25.2-33.5 [facility] Comment on above: Performed By: #### ANJALI PRADHAN, BMP #### [facility] [address] [place] [id number] Forming Machine Tender: Sarai Howell MD MCHC (RBC) [Mass/Vol] 32.3 g/dL Normal 28.4-34.8 [facility] Comment on above: Performed By: #### ANJALI PRADHAN, BMP #### [address] [place] [address] Forming Machine Tender: Sarai Howell MD MCV (RBC) [Entitic vol] 89.8 fL Normal 82.6-102.9 [facility] Comment on above: Performed By: #### ANJALI PRADHAN, BMP #### [address] [place] [id number] Forming Machine Tender: Sarai Howell MD Monocytes (Bld) [#/Vol] 0.83 10*3/uL Normal 0.10-1.20 [facility] Comment on above: Performed By: #### ANJALI PRADHAN, BMP #### [address] [place], [facility]83 Forming Machine Tender: Sarai Howell MD Monocytes/100 WBC (Bld) 10 % Normal 3-12 [facility] Comment on above: Performed By: #### ANJALI PRADHAN, BMP #### [facility] [address] [place], [facility]83 Forming Machine Tender: Sarai Howell MD Neutrophil (Seg) 65 % Normal 36-65 [facility] Comment on above: Performed By: #### T ANJALI AYALA, BMP #### [facility] [address] [place], [place] [phone] Forming Machine Tender: Sarai Howell MD NRBC Automated 0.0 per 100 WBC Normal 0.0 [facility] Comment on above: Performed By: #### T ANJALI AYALA, BMP #### [facility] [address] [place], [place] 2680683 Forming Machine Tender: Sarai Howell MD Platelet mean volume (Bld) [Entitic vol] 11.9 fL Normal 8.1-13.5 [facility] Comment on above: Performed By: #### T ANJALI AYALA, BMP #### [address] [place], [place] 1473183 Forming Machine Tender: Sarai Howell MD Platelets (Bld) [#/Vol] 254 10*3/uL Normal 138-453 [facility] Comment on above: Performed By: #### ANJALI PRADHAN, BMP #### [address] [place], [place] 18[address]83 Forming Machine Tender: Sraai Howell MD RBC (Bld) [#/Vol] 4.52 10*6/uL Normal 4.21-5.77 [facility] Comment on above: Performed By: #### T ANJALI AYALA, BMP #### [address] [place], [place] [id number] Forming Machine Tender: Sarai Howell MD WBC (Bld) [#/Vol] 8.5 10*3/uL Normal 3.5-11.3 [facility] Comment on above: Performed By: #### T ANJALI AYALA, BMP #### [facility] [address] [place] [address] Forming Machine Tender: Sarai Howell MD CT HEAD WO CONTRASTon [...] Babs Mae MD 04/25/23 Final result Normal [facility] Flu A/B Ag Detectionon 04-25 Flu A Ag Detection Negative Normal NEG [facility] Comment on above: Result Comment: for Influenza A Antigen Performed By: #### F HECTORABA #### [facility] [address] [place] [address] Forming Machine Tender: Sarai Howell MD Flu B Ag Detection Negative Normal NEG [facility] Comment on above: Result Comment: for Influenza B Antigen. Performed By: #### F HENRY #### [facility] [address] [place] [address] Forming Machine Tender: Sarai Howell MD Lactic Acidon 04-25-2023 Lactate [Moles/Vol] 1.3 mmol/L Normal 0.5-2.2 [facility] Comment on above: Performed By: #### L ACTIC #### [facility] [address] [place] [address] Forming Machine Tender: Sarai Howell MD [id number] 04-25-2023 SARS-CoV-2 (COVID-19) RNA JOSÉ MIGUEL+probe Ql (Unsp spec) Not detected Normal NOTDET [facility] Comment on above: Result Comment: Rapid [...] management decisions. Fact sheet for Healthcare Providers: https://www.fda.gov/media/151668/download Fact sheet for Patients: https://www.fda.gov/media/772174/download Methodology: Isothermal Nucleic Acid Amplification Performed By: #### F HENRY #### [facility] [address] [place] [address] Forming Machine Tender: Sarai Howell MD Troponinon 04-25-2023 Troponin, High Sens 26 ng/L High 0-22 [facility] Comment on above: Result Comment: High Sensitivity Troponin values cannot be compared with other Troponin methodologies. Performed By: #### F HENRY #### [facility] [address] [place] [address] Forming Machine Tender: Sarai Howell MD Troponin, High Sens 27 ng/L High 0-22 [facility] Comment on above: Result Comment: High Sensitivity Troponin values cannot be compared with other Troponin methodologies. Performed By: #### T JAMIE, CDP, BMP #### [facility] [address] [place], [place] [id number] Forming Machine Tender: Sarai Howell MD UA w/Reflex Cultureon 2022 Bilirubin, SemiQt,Ur SMALL Abnormal NEG [facility] [place] [facility] Comment on above: Performed By: #### F LUABA #### [facility] [address] [place], [place] [id number] Forming Machine Tender: Sarai Howell MD Blood, Urine 3+ Abnormal NEG [facility] Comment on above: Performed By: #### F LUABA #### [facility] [address] [place], [place] [id number] Forming Machine Tender: Sarai Howell MD Clarity (U) Cloudy Abnormal CLEAR [facility] Comment on above: Performed By: #### F LUABA #### [facility] [address] [place], [place] [id number] Forming Machine Tender: Sarai Howell MD Color (U) Yellow Normal YEL [facility] Comment on above: Performed By: #### F LUABA #### [address] [place], [place] [id number] Forming Machine Tender: Sarai Howell MD Glucose Ql (U) Negative Normal [facility] Comment on above: Performed By: #### F LUABA #### [facility] [address] [place] [address] Forming Machine Tender: Sarai Howell MD Ketones Ql (U) 1+ mg/dL Abnormal NEG [facility] Comment on above: Performed By: #### F LUABA #### [facility] [address] [place], [place] [id number] Forming Machine Tender: Sarai Howell MD Leukocyte esterase Test strip Ql (U) TRACE Abnormal NEG [facility] Comment on above: Performed By: #### F LUABA #### [facility] [address] [place] [address] Forming Machine Tender: Sarai Howell MD Nitrite,Ur Negative Normal NEG [facility] Comment on above: Performed By: #### F LUABA #### [facility] [address] [place], [place] [id number] Forming Machine Tender: Sarai Howell MD PH,Ur 6.0 Normal 5.0-9.0 [facility] Comment on above: Performed By: #### F LUABA #### [facility] [address] [place], [place] [phone] Forming Machine Tender: Sarai Howell MD Protein Ql (U) 1+ mg/dL Abnormal NEG [facility] Comment on above: Performed By: #### F LUABA #### [address] [place], [place] 65[address]483 Forming Machine Tender: Sarai Howell MD Spec. [place],Ur >1.030 High 1.010-1.02 0 [facility] Comment on above: Performed By: #### F LUABA #### [address] [place], [place] [id number] Forming Machine Tender: Sarai Howell MD Urobilinogen,Ur Normal Normal 0.0-1.0 [facility] Comment on above: Performed By: #### F LUABA #### [address] [place], [place] [id number] Forming Machine Tender: Sarai Howell MD Urinalysis,Microon 3 Bacteria 1+ Abnormal NONE [facility] Comment on above: Performed By: #### F LUABA #### [facility] [address] [place], [place] [id number] Forming Machine Tender: Sarai Howell MD Epithelial cells LM Ql (Urine sed) None Normal 0-5 [facility] Comment on above: Performed By: #### F LUABA #### [facility] [address] [place], [place] [address]83 Forming Machine Tender: Sarai Howell MD Mucus Strands TRACE Abnormal NONE [facility] Comment on above: Performed By: #### F LUABA #### [facility] [address] [place], [place] 114[address]83 Forming Machine Tender: Sarai Howell MD Urine RBC's 20 TO 50 Normal 0-2 [facility] Comment on above: Performed By: #### F LUABA #### [facility] [address] [place] [address] Forming Machine Tender: Sarai Howell MD Urine WBC's 2 TO 5 Normal 0-5 [facility] Comment on above: Performed By: #### F LUABA #### [facility] [address] [place] [address] Forming Machine Tender: Sarai Howell MD XR CHEST PORTABLEon 04-25-20 [...] Sarai Henson MD 04/25/23 Final result Normal [facility] BNPon 01-17-2023 Natriuretic peptide B (Bld) [Mass/Vol] 210.0 pg/mL Normal <=900.0 [facility] [place] [facility] Comment on above: Performed By: #### B HOGSHEAD ROLLER, CMADM, CMP ####[facility] [place] [facility] [address] [place], [place] [address]AlElizabeth Malone CARDIAC MJ ADMITon 023 CK [Catalytic activity/Vol] 67 U/L Normal 39-308 [facility] [place] [facility] Comment on above: Performed By: #### B HOGSHEAD ROLLER, CMADM, CMP ####[facility] [place] [facility] [address] [place] [address]Dr. Donna Malone CK.MB [Mass/Vol] 2.51 ng/mL Normal <=3.60 [facility] [place] [facility] Comment on above: Performed By: #### B HOGSHEAD ROLLER, CMADM, CMP ####[facility] [place] [facility] [address] [place] [address]Dr. Donna Malone HSTROP 9.2 pg/mL Normal 4.0-76.1 [facility] [place] [facility] Comment on above: Result Comment: CUT- OFF POINTS HAVE BEEN ESTABLISHED BASED ON THE FOURTH UNIVERSAL DEFINITIONS OF MYOCARDIALINFARCTION. THE UPPER REFERENCE LIMIT (URL) OF TROPONIN, DEFINED THE 99TH PERCENTILE OFcTnI DISTRIBUTION IN A REFERENCE POPULATION, HAS BEEN CONFIRMED THE DECISION THRESHOLDFOR GA DIAGNOSIS. Performed By: #### B HOGSHEAD ROLLER, CMADM, CMP ####[facility] [place] [facility] [address] [place] [address]Dr. Donna Malone BINDU 68 ng/mL Normal 16-96 [facility] [place] [facility] Comment on above: Performed By: #### B HOGSHEAD ROLLER, CMADM, CMP ####[facility] [place] [facility] [address] [place] [address]Dr. Donna Malone CBC AUTO DIFFon 01-17-2023 BASO # 0.1 103/ul Normal 0.0-0.1 [facility] [place] [facility] Comment on above: Performed By: #### C BC ####[facility] [place] [facility] [address] [place] [address]Dr. Donna Malone Basophils/100 WBC (Bld) 0.8 % Normal 0.2-2.0 [facility] [place] [facility] Comment on above: Performed By: #### C BC ####[facility] [place] [facility] [address] [place] [address]DrElizabeth Malone EO # 0.1 103/ul Normal 0.0-0.7 [facility] [place] [facility] Comment on above: Performed By: #### C BC ####[facility] [place] [facility] [address] [place] [address]Dr. Donna Malone Eosinophils/100 WBC (Bld) 1.4 % Normal 0.9-7.0 [facility] [place] [facility] Comment on above: Performed By: #### C BC ####[facility] [place] [facility] [address] [place] [address]Dr. Donna Malone Erythrocyte distribution width (RBC) [Ratio] 14.6 % Normal 11.0-15.0 [facility] [place] [facility] Comment on above: Performed By: #### C BC ####[facility] [place] [facility] [address] [place], [place] [address]Dr. Donna Malone Hematocrit (Bld) [Volume fraction] 43.9 % Normal 42.0-54.0 [facility] [place] [facility] Comment on above: Performed By: #### C BC ####[facility] [place] [facility] [address] [place], [place] [address]Dr. Donna Malone Hemoglobin (Bld) [Mass/Vol] 14.2 g/dL Normal 14.0-18.0 [facility] [place] [facility] Comment on above: Performed By: #### C BC ####[facility] [place] [facility] [address] [place], [place] [address]Dr. Donna Malone IG # 0.04 10e3/ul Critically high 0.00-0.03 [facility] [place] [facility] Comment on above: Performed By: #### C BC ####[facility] [place] [facility] Hoe[address] [place], [place] [address]Dr. Donna Malone IG % 0.4 % Normal 0.0-0.5 [facility] [place] [facility] Comment on above: Performed By: #### C BC ####[facility] [place] [facility] [address] [place], [place] [address]Dr. Donna Malone LYMPH # 2.3 103/ul Normal 1.2-3.8 [facility] [place] [facility] Comment on above: Performed By: #### C BC ####[facility] [place] [facility] [address] [place], [place] [address]Dr. Donna Malone Lymphocytes/100 WBC (Bld) 25.4 % Normal 20.5-60.0 [facility] [place] [facility] Comment on above: Performed By: #### C BC ####[facility] [place] [facility] [address] [place], [place] [address]Dr. Rubyyvan Malone MANUAL DIFF REQ NO Normal [facility] [place] [facility] Comment on above: Performed By: #### C BC ####[facility] [place] [facility] [address] [place] [address]Dr. Donna Faisal MCH (RBC) [Entitic mass] 29.6 pg Normal 25.9-34.0 [facility] [place] [facility] Comment on above: Performed By: #### C BC ####[facility] [place] [facility] [address] [place] [address]Dr. Donna Faisal MCHC (RBC) [Mass/Vol] 32.3 g/dL Normal 29.9-35.2 [facility] [place] [facility] Comment on above: Performed By: #### C BC ####[facility] [place] [facility] [address] [place] [address]Dr. Rubyyvan Malone MCV (RBC) [Entitic vol] 91.5 fL Normal 80.0-94.0 [facility] [place] [facility] Comment on above: Performed By: #### C BC ####[facility] [place] [facility] [address] [place] [address]Dr. Rubyyvan Faisal MONO # 0.7 103/ul Normal 0.3-0.8 [facility] [place] [facility] Comment on above: Performed By: #### C BC ####[facility] [place] [facility] [address] [place] [address]Dr. Donna Malone Monocytes/100 WBC (Bld) 7.5 % Normal 1.7-12.0 [facility] [place] [facility] Comment on above: Performed By: #### C BC ####[facility] [place] [facility] [address] [place] [address]DrElizabeth Malone NEUT # 5.9 103/ul Normal 1.4-6.5 [facility] [place] [facility] Comment on above: Performed By: #### C BC ####[facility] [place] [facility] [address] [place] [address]DrElizabeth Malone Neutrophils/100 WBC (Bld) 64.5 % Normal 43.0-75.0 [facility] [place] [facility] Comment on above: Performed By: #### C BC ####[facility] [place] [facility] [address] [place], [place] [address]Dr. Donna Malone Platelet mean volume (Bld) [Entitic vol] 10.6 fL Normal 9.5-13.5 [facility] Comment on above: Performed By: #### C BC ####[facility] [place] [facility] [address] [place] [address]Dr. Donna Malone PLT 296 103/ul Normal 150-450 [facility] [place] [facility] Comment on above: Performed By: #### C BC ####[facility] [place] [facility] [address] [place] [address]Dr. Donna Malone RBC 4.80 106/ul Normal 4.70-6.10 [facility] [place] [facility] Comment on above: Performed By: #### C BC ####[facility] [place] [facility] [address] [place] [address]Dr. Donna Malone WBC 9.1 103/ul Normal 4.0-11.0 [facility] [place] [facility] Comment on above: Performed By: #### C BC ####[facility] [place] [facility] [address] [place] [address] Donna [address] CT CSPINE WO CONon 3 CT CSPINE WO CON Normal [facility] [place] [facility] CT HEAD WO CONon 01-17-2023 CT HEAD WO CON Normal [facility] [place] [facility] CT LSPINE WO CONon 3 CT LSPINE WO CON Normal [facility] [place] [facility] PROF 14(COMP METB)on 023 Albumin [Mass/Vol] 3.3 g/dL Critically low 3.4-5.0 [facility] [place] [facility] Comment on above: Performed By: #### B HOGSHEAD ROLLER, CMADM, CMP ####[facility] [place] [facility] [address] [place] [address]Dr. Donna Malone Albumin/Globulin [Mass ratio] 0.8 {ratio} Normal [facility] [place] [facility] Comment on above: Performed By: #### B HOGSHEAD ROLLER, CMADM, CMP ####[facility] [place] [facility] [address] [place] [address]Dr. Donna Malone ALP [Catalytic activity/Vol] 55 U/L Normal 46-116 [facility] [place] [facility] Comment on above: Performed By: #### B HOGSHEAD ROLLER, CMADM, CMP ####[facility] [place] [facility] [address] [place] [address]Dr. Donna Malone ALT [Catalytic activity/Vol] 15 U/L Critically low 16-63 [facility] [place] [facility] Comment on above: Performed By: #### B HOGSHEAD ROLLER, CMADM, CMP ####[facility] [place] [facility] [address] [place] [address]Dr. Donna Malone Anion gap [Moles/Vol] 9.6 mmol/L Normal [facility] Comment on above: Performed By: #### B HOGSHEAD ROLLER, CMADM, CMP ####[facility] [place] [facility] [address]xentvw[address] [place] [address]Dr. Donna Malone AST [Catalytic activity/Vol] 14 U/L Critically low 15-37 [facility] Comment on above: Performed By: #### B HOGSHEAD ROLLER, CMADM, CMP ####[facility] [place] [facility] [address] [place] [address]Dr. Donna Malone Bilirubin [Mass/Vol] 0.2 mg/dL Normal 0.2-1.0 [facility] [place] [facility] Comment on above: Performed By: #### B HOGSHEAD ROLLER, CMADM, CMP ####[facility] [place] [facility] [address]uvrqp[address] [place] [address]Dr. Donna Malone Calcium [Mass/Vol] 8.6 mg/dL Normal 8.5-10.1 [facility] [place] [facility] Comment on above: Performed By: #### B HOGSHEAD ROLLER, CMADM, CMP ####[facility] [place] [facility] [address]bl[address] [place] [address]Dr. Donna Malone Chloride [Moles/Vol] 107 mmol/L Normal 98-107 [facility] [place] [facility] Comment on above: Performed By: #### B HOGSHEAD ROLLER, CMADM, CMP ####[facility] [place] [facility] [address] [place] [address]Dr. Donna Malone CO2 [Moles/Vol] 25.9 mmol/L Normal 21.0-32.0 [facility] [place] [facility] Comment on above: Performed By: #### B HOGSHEAD ROLLER, CMADM, CMP ####[facility] [place] [facility] [address]ylxsw[address] [place] [address]Dr. Donna Malone Creatinine [Mass/Vol] 1.12 mg/dL Normal 0.70-1.30 [facility] Comment on above: Performed By: #### B HOGSHEAD ROLLER, CMADM, CMP ####[facility] [place] [facility] [address] [place] [address]Dr. Donna Malone EGFR-AF LUXEMBOURGER >60 Normal >=60 [facility] Comment on above: Performed By: #### B HOGSHEAD ROLLER, CMADM, CMP ####[facility] [place] [facility] [address]psn[address] [place] [address]Dr. Donna Malone EGFR-NON AF LUXEMBOURGER >60 Normal >=60 [facility] Comment on above: Performed By: #### B HOGSHEAD ROLLER, CMADM, CMP ####[facility] [place] [facility] X[address]vtue[address] [place] [address]Dr. Donna Malone Globulin (S) [Mass/Vol] 4.2 g/dL Normal [facility] Comment on above: Performed By: #### B HOGSHEAD ROLLER, CMADM, CMP ####[facility] [place] [facility] [address] [place], [place] [address]Dr. Donna Malone Glucose [Mass/Vol] 163 mg/dL Critically high 74-106 T [facility] Comment on above: Performed By: #### B HOGSHEAD ROLLER, CMADM, CMP ####[facility] [place] [facility] [address] [place], [place] [address]Dr. Donna Malone Potassium [Moles/Vol] 4.5 mmol/L Normal 3.5-5.1 [facility] [place] [facility] Comment on above: Performed By: #### B HOGSHEAD ROLLER, CMADM, CMP ####[facility] [place] [facility] [address]mc[address] [place] [address]Dr. Donna Malone Protein [Mass/Vol] 7.5 g/dL Normal 6.4-8.2 [facility] [place] [facility] Comment on above: Performed By: #### B HOGSHEAD ROLLER, CMADM, CMP ####[facility] [place] [facility] [address] [place], [place] [address]Dr. Donna Malone Sodium [Moles/Vol] 138 mmol/L Normal 136-145 [facility] Comment on above: Performed By: #### B HOGSHEAD ROLLER, CMADM, CMP ####[facility] [place] [facility] [address] [place], [place] [address]Dr. Donna Malone Urea nitrogen [Mass/Vol] 11.0 mg/dL Normal 7.0-18.0 [facility] Comment on above: Performed By: #### B HOGSHEAD ROLLER, CMADM, CMP ####[facility] [place] [facility] [address] [place], [place] [address]Dr. Donna Malone Urea nitrogen/Creatinine [Mass ratio] 9.8 mg/mg Normal [facility] [place] [facility] Comment on above: Performed By: #### B HOGSHEAD ROLLER, CMADM, CMP ####[facility] [place] [facility] [address] [place], [place] [address]Dr. Donna Malone PROTIMEon 01-17-2023 INR Coag (PPP) [Relative time] 0.94 {INR} Normal [facility] [place] [facility] Comment on above: Performed By: #### P TT, PT ####[facility] [place] [facility] [address] [place], [place] [address]Dr. Donna Malone INR GUIDELINES SEE BELOW Normal [facility] [place] [facility] Comment on above: Result Comment: FLORESITA RED INR: 2.0 - 3.0 CONDITIONS NOT LISTED BELOW 2.5 - 3.5 FOR PROSTHETIC HEART VALVE REPLACEMENT 2.5 - 3.5 RECURRENT THROMBOSIS Performed By: #### P TT, PT ####[facility] [place] [facility] [address] [place], [place] [address]Dr. Donna Malone PT Coag (PPP) [Time] 10.0 s Normal 9.0-11.6 [facility] Comment on above: Performed By: #### P TT, PT ####[facility] [place] [facility] [address]uc[address] [place], [place] [address]Dr. Donna Malone PTTon 01-17-2023 aPTT Coag (Bld) [Time] 29.6 s Normal 22.3-36.2 [facility] Comment on above: Performed By: #### P TT, PT ####[facility] [place] [facility] [address] [place], [place] [address]Dr. Donna Malone CBC AUTO DIFFon 11-17-2022 BASO # 0.0 103/ul Normal 0.0-0.1 [facility] Comment on above: Performed By: #### C BC ####[facility] [place] [facility] [address] [place] [address]Dr. Donna Malone Basophils/100 WBC (Bld) 0.2 % Normal 0.2-2.0 [facility] [place] [facility] Comment on above: Performed By: #### C BC ####[facility] [place] [facility] [address] [place], [place] [address]Dr. Donna Malone EO # 0.0 103/ul Normal 0.0-0.7 [facility] [place] [facility] Comment on above: Performed By: #### C BC ####[facility] [place] [facility] [address] [place], [place] [address]Dr. Donna Malone Eosinophils/100 WBC (Bld) 0.0 % Critically low 0.9-7.0 [facility] [place] [facility] Comment on above: Performed By: #### C BC ####[facility] [place] [facility] [address] [place], [place] [address]Dr. Donna Malone Erythrocyte distribution width (RBC) [Ratio] 14.5 % Normal 11.0-15.0 [facility] [place] [facility] Comment on above: Performed By: #### C BC ####[facility] [place] [facility] [address] [place], [place] [address]Dr. Donna Malone Hematocrit (Bld) [Volume fraction] 39.6 % Critically low 42.0-54.0 [facility] Comment on above: Performed By: #### C BC ####[facility] [place] [facility] [address] [place], [place] [address]Dr. Donna Malone Hemoglobin (Bld) [Mass/Vol] 13.3 g/dL Critically low 14.0-18.0 [facility] [place] [facility] Comment on above: Performed By: #### C BC ####[facility] [place] [facility] [address] [place], [place] [address]Dr. Donna Malone IG # 0.06 10e3/ul Critically high 0.00-0.03 [facility] [place] [facility] Comment on above: Performed By: #### C BC ####[facility] [place] [facility] [address] [place], [place] [address]Dr. Donna Malone IG % 0.5 % Normal 0.0-0.5 [facility] [place] [facility] Comment on above: Performed By: #### C BC ####[facility] [place] [facility] [address] [place] [address]Dr. Donna Faisal LYMPH # 1.0 103/ul Critically low 1.2-3.8 [facility] Comment on above: Performed By: #### C BC ####[facility] [place] [facility] [address] [place] [address]Dr. Donna Faisal Lymphocytes/100 WBC (Bld) 8.3 % Critically low 20.5-60.0 [facility] Comment on above: Performed By: #### C BC ####[facility] [place] [facility] [address] [place] [address]Dr. Rubyyvan Malone MANUAL DIFF REQ NO Normal [facility] [place] [facility] Comment on above: Performed By: #### C BC ####[facility] [place] [facility] F[address]cil[address] [place] [address]Dr. Donna Faisal MCH (RBC) [Entitic mass] 29.4 pg Normal 25.9-34.0 [facility] Comment on above: Performed By: #### C BC ####[facility] [place] [facility] [address]kerb[address] [place] [address]Dr. Donna Malone MCHC (RBC) [Mass/Vol] 33.6 g/dL Normal 29.9-35.2 [facility] [place] [facility] Comment on above: Performed By: #### C BC ####[facility] [place] [facility] [address]crkqy[address] [place] [address]Dr. Donna Faisal MCV (RBC) [Entitic vol] 87.6 fL Normal 80.0-94.0 [facility] [place] [facility] Comment on above: Performed By: #### C BC ####[facility] [place] [facility] [address]ws[address] [place] [address]Dr. Donna Malone MONO # 0.8 103/ul Normal 0.3-0.8 [facility] [place] [facility] Comment on above: Performed By: #### C BC ####[facility] [place] [facility] [address] [place], [place] [address]Dr. Rubyyvan Malone Monocytes/100 WBC (Bld) 6.6 % Normal 1.7-12.0 [facility] [place] [facility] Comment on above: Performed By: #### C BC ####[facility] [place] [facility] [address] [place] [address]Dr. Donna Malone NEUT # 10.2 103/ul Critically high 1.4-6.5 [facility] Comment on above: Performed By: #### C BC ####[facility] [place] [facility] [address] [place] [address]Dr. Donna Malone Neutrophils/100 WBC (Bld) 84.4 % Critically high 43.0-75.0 [facility] [place] [facility] Comment on above: Performed By: #### C BC ####[facility] [place] [facility] [address]fv[address] [place] [address]Dr. Donna Malone Platelet mean volume (Bld) [Entitic vol] 11.5 fL Normal 9.5-13.5 [facility] [place] [facility] Comment on above: Performed By: #### C BC ####[facility] [place] [facility] [address] [place] [address]Dr. Donna Malone PLT 204 103/ul Normal 150-450 [facility] [place] [facility] Comment on above: Performed By: #### C BC ####[facility] [place] [facility] Hx[address]egcky[address] [place] [address]Dr. Donna Malone RBC 4.52 106/ul Critically low 4.70-6.10 [facility] [place] [facility] Comment on above: Performed By: #### C BC ####[facility] [place] [facility] X[address] [place] [address]Dr. Donna Malone WBC 12.0 103/ul Critically high 4.0-11.0 [facility] [place] [facility] Comment on above: Performed By: #### C BC ####[facility] [place] [facility] [address] [place], [place] [address]Dr. Donna Faisal MAGNESIUMon 11-17-2022 Magnesium [Mass/Vol] 1.9 mg/dL Normal 1.8-2.4 [facility] [place] [facility] Comment on above: Performed By: #### C MP, MG ####[facility] [place] [facility] [address] [place] [address]Dr. Donna Malone PROF 14(COMP METB)on 023 Albumin [Mass/Vol] 3.2 g/dL Critically low 3.4-5.0 [facility] Comment on above: Performed By: #### C MP, MG ####[facility] [place] [facility] [address]fm[address] [place] [address]Dr. Rubyyvan Faisal Albumin/Globulin [Mass ratio] 1.0 {ratio} Normal [facility] Comment on above: Performed By: #### C MP, MG ####[facility] [place] [facility] [address]mjdxl[address] [place] [address]Dr. Rubyyvan Faisal ALP [Catalytic activity/Vol] 51 U/L Normal 46-116 [facility] Comment on above: Performed By: #### C MP, MG ####[facility] [place] [facility] [address]da[address] [place] [address]Dr. Donna Malone ALT [Catalytic activity/Vol] 16 U/L Normal 16-63 [facility] Comment on above: Performed By: #### C MP, MG ####[facility] [place] [facility] [address]qehv[address] [place] [address]Dr. Donna Malone Anion gap [Moles/Vol] 14.7 mmol/L Normal [facility] Comment on above: Performed By: #### C MP, MG ####[facility] [address] [place] [address]Dr. Donna Malone AST [Catalytic activity/Vol] 24 U/L Normal 15-37 [facility] Comment on above: Performed By: #### C MP, MG ####[facility] Tkw[address]jiycdm[address] [place] [address]Dr. Donna Malone Bilirubin [Mass/Vol] 0.5 mg/dL Normal 0.2-1.0 [facility] Comment on above: Performed By: #### C MP, MG ####[facility] Jndxmggxni[address] [place] [address]Dr. Donna Malone Calcium [Mass/Vol] 8.6 mg/dL Normal 8.5-10.1 [facility] Comment on above: Performed By: #### C MP, MG ####[facility] Tjfquhpzsv[address] [place] [address]Dr. Donna Malone Chloride [Moles/Vol] 108 mmol/L Critically high 98-107 [facility] Comment on above: Performed By: #### C MP, MG ####[facility] Mbzackdcpa[address] [place] [address]Dr. Donna Malone CO2 [Moles/Vol] 21.6 mmol/L Normal 21.0-32.0 [facility] Comment on above: Performed By: #### C MP, MG ####[facility] Uqjgwyhivt[address] [place] [address]Dr. Donna Malone Creatinine [Mass/Vol] 0.83 mg/dL Normal 0.70-1.30 [facility] Comment on above: Performed By: #### C MP, MG ####[facility] [address]duutw[address] [place] [address]Dr. Donna Malone EGFR-AF LUXEMBOURGER >60 Normal >=60 [facility] Comment on above: Performed By: #### C MP, MG ####[facility] [address]juvf[address] [place], [place] [address]Dr. Donna Malone EGFR-NON AF LUXEMBOURGER >60 Normal >=60 [facility] Comment on above: Performed By: #### C MP, MG ####[facility] Zwajskcktv[address] [place], [place] [address]Dr. Donna Malone Globulin (S) [Mass/Vol] 3.2 g/dL Normal [facility] Comment on above: Performed By: #### C MP, MG ####[facility] Bdymoczedl[address] [place] [address]Dr. Donna Faisal Glucose [Mass/Vol] 162 mg/dL Critically high 74-106 [facility] Comment on above: Performed By: #### C MP, MG ####[facility] Fazudajrst[address] [place] [address]Dr. Donna Malone Potassium [Moles/Vol] 3.3 mmol/L Critically low 3.5-5.1 [facility] Comment on above: Performed By: #### C MP, MG ####[facility] Dftwmytmaw1576 [place] [address]Dr. Rubyyvan Malone Protein [Mass/Vol] 6.4 g/dL Normal 6.4-8.2 [facility] Comment on above: Performed By: #### C MP, MG ####[facility] Vbmtlpqljq[address] [place], [place] [address]Dr. Rubyyvan Malone Sodium [Moles/Vol] 141 mmol/L Normal 136-145 [facility] Comment on above: Performed By: #### C MP, MG ####[facility] [address]yqryzpbxj[address] [place], [place] [address]Dr. Donna Malone Urea nitrogen [Mass/Vol] 12.0 mg/dL Normal 7.0-18.0 [facility] Comment on above: Performed By: #### C MP, MG ####[facility] Ifpzlopzlt[address] [place], [place] [address]Dr. Donna Malone Urea nitrogen/Creatinine [Mass ratio] 14.5 mg/mg Normal [facility] Comment on above: Performed By: #### C MP, MG ####[facility] Dswkvjuxis[address] [place], [place] [address]Dr. Rubyyvan Malone AMMONIAon 11-16-2022 Ammonia (P) [Mass/Vol] ug/dL Critically low 11-32 [facility] Comment on above: Performed By: #### A MM ####[facility] [address]ujplvgym[address] [place], [place] [address]Dr. Donna Faisal CBC AUTO DIFFon 11-16-2022 BASO # 0.0 103/ul Normal 0.0-0.1 [facility] Comment on above: Performed By: #### C BC ####[facility] [address]pdygclefp[address] [place], [place] [address]Dr. Donna Malone Basophils/100 WBC (Bld) 0.2 % Normal 0.2-2.0 [facility] Comment on above: Performed By: #### C BC ####[facility] Jerelenqdd[address] [place], [place] [address]Dr. Donna Malone EO # 0.0 103/ul Normal 0.0-0.7 [facility] Comment on above: Performed By: #### C BC ####[facility] T[address]jivfqrs[address] [place], [place] [address]Dr. Donna Malone Eosinophils/100 WBC (Bld) 0.0 % Critically low 0.9-7.0 [facility] Comment on above: Performed By: #### C BC ####[facility] Vqdwvsvwko27[address] [place] [address]Dr. Donna Malone Erythrocyte distribution width (RBC) [Ratio] 14.4 % Normal 11.0-15.0 [facility] Comment on above: Performed By: #### C BC ####[facility] Zmtpfiluat5[address] [place] [address]Dr. Donna Malone Hematocrit (Bld) [Volume fraction] 38.6 % Critically low 42.0-54.0 [facility] Comment on above: Performed By: #### C BC ####[facility] Cwzvmrlvry79[address] [place] [address]Dr. Donna Malone Hemoglobin (Bld) [Mass/Vol] 13.1 g/dL Critically low 14.0-18.0 [facility] Comment on above: Performed By: #### C BC ####[facility] Rqojekwogh[address] [place] [address]Dr. Donna Malone IG # 0.05 10e3/ul Critically high 0.00-0.03 [facility] Comment on above: Performed By: #### C BC ####[facility] Ueyhclkzdf[address] [place] [address]Dr. Donna Malone IG % 0.5 % Normal 0.0-0.5 [facility] Comment on above: Performed By: #### C BC ####[facility] Nfphhjqnvj26[address] [place] [address]Dr. Donna Malone LYMPH # 1.0 103/ul Critically low 1.2-3.8 [facility] Comment on above: Performed By: #### C BC ####[facility] Nyuqwfnftk3[address] [place] [address]Dr. Donna Malone Lymphocytes/100 WBC (Bld) 10.8 % Critically low 20.5-60.0 [facility] Comment on above: Performed By: #### C BC ####[facility] [address]ijs[address] [place] [id number]. Donna Malone MANUAL DIFF REQ NO Normal [facility] Comment on above: Performed By: #### C BC ####[facility] Ob[address]ftsyqkv39[address] [place] [id number]. Donna Malone MCH (RBC) [Entitic mass] 29.4 pg Normal 25.9-34.0 [facility] Comment on above: Performed By: #### C BC ####[facility] Bxaebnquhs8[address] [place] [address]Dr. Donna Malone MCHC (RBC) [Mass/Vol] 33.9 g/dL Normal 29.9-35.2 [facility] Comment on above: Performed By: #### C BC ####[facility] Xtdxzizivu2302 [place] [address]Dr. Donna Malone MCV (RBC) [Entitic vol] 86.7 fL Normal 80.0-94.0 [facility] Comment on above: Performed By: #### C BC ####[facility] [address]zq[address]vuf[address] [place], [place] [address]Dr. Donna Faisal MONO # 0.4 103/ul Normal 0.3-0.8 [facility] Comment on above: Performed By: #### C BC ####[facility] Jzwvttiqnp[address] [place], [place] [address]Dr. Rubyyvan Malone Monocytes/100 WBC (Bld) 4.4 % Normal 1.7-12.0 [facility] Comment on above: Performed By: #### C BC ####[facility] Iaqirflwxs[address] [place], [place] [address]Dr. Donna Malone NEUT # 7.9 103/ul Critically high 1.4-6.5 [facility] Comment on above: Performed By: #### C BC ####[facility] Afcjzuqocr[address] [place], [place] [address]Dr. Donna Malone Neutrophils/100 WBC (Bld) 84.1 % Critically high 43.0-75.0 [facility] Comment on above: Performed By: #### C BC ####[facility] Otqmswbwtv7[address] [place] [id number]. Donna Malone Platelet mean volume (Bld) [Entitic vol] 11.3 fL Normal 9.5-13.5 [facility] Comment on above: Performed By: #### C BC ####[facility] Sz[address]qifk[address] [place] [id number]. Donna Malone PLT 201 103/ul Normal 150-450 [facility] Comment on above: Performed By: #### C BC ####[facility] Scfzlxtqso549[address] [place] [address]Dr. Donna Malone RBC 4.45 106/ul Critically low 4.70-6.10 [facility] Comment on above: Performed By: #### C BC ####[facility] Vlviwsandc8[address] [place] [address]Dr. Donna Malone WBC 9.3 103/ul Normal 4.0-11.0 [facility] Comment on above: Performed By: #### C BC ####[facility] Zbphcoxnkl[address] [place], [place] [address]Dr. Donna Malone GLYCOHEMOGLOBIN A1Con 2022 ADA RECOMMENDATION SEE BELOW Normal [facility] Comment on above: Result Comment: ADA RECOMMENDED LIMIT 4.0 - 6.0 ADA THERAPEUTIC TARGET < 7.0 ACTION SUGGESTED > 7.0 Performed By: #### A 1C ####[facility] [address]qirdk[address]qd[address] [place], [place] [address]Dr. Donna Malone Glucose [Mass/Vol] 128 mg/dL Normal [facility] Comment on above: Performed By: #### A 1C ####[facility] Ozpxfylqbg5406 [place] [address]Dr. Donna Malone HbA1c (Bld) [Mass fraction] 6.1 % Normal 4.5-6.2 [facility] Comment on above: Performed By: #### A 1C ####[facility] Caacydqkzp[address] [place], [place] [address]Dr. Donna Malone MAGNESIUMon 11-16-2022 Magnesium [Mass/Vol] 1.8 mg/dL Normal 1.8-2.4 [facility] Comment on above: Performed By: #### C MP, MG ####[facility] Mzadasovbz[address] [place] [address]Dr. Donna Malone POINT OF CARE GLUCOSEon 11-07 Glucose [Mass/Vol] 170 mg/dL Critically high 74-106 [facility] Comment on above: Performed By: #### P OCGLUC ####[facility] Kw[address]owzjwa48[address] [place] [address]Dr. Donna Malone Glucose [Mass/Vol] 158 mg/dL Critically high 74-106 [facility] Comment on above: Performed By: #### P OCGLUC ####[facility] Njlbjsacyy9135 [place] [address]Dr. Donna Malone Glucose [Mass/Vol] 176 mg/dL Critically high 74-106 [facility] Comment on above: Performed By: #### P OCGLUC ####[facility] Paiaufveeu36[address] [place] [address]Dr. Donna Malone PROF 14(COMP METB)on 023 Albumin [Mass/Vol] 3.1 g/dL Critically low 3.4-5.0 [facility] Comment on above: Performed By: #### C MP, MG ####[facility] Plljqcvqjh3415 [place] [address]Dr. Donna Malone Albumin/Globulin [Mass ratio] 0.9 {ratio} Normal [facility] Comment on above: Performed By: #### C MP, MG ####[facility] Xfwjwzrivg4127 [place] [address]Dr. Donna Malone ALP [Catalytic activity/Vol] 52 U/L Normal 46-116 [facility] Comment on above: Performed By: #### C MP, MG ####[facility] Uqxssodhqf6235 [place] [address]Dr. Donna Malone ALT [Catalytic activity/Vol] 13 U/L Critically low 16-63 [facility] Comment on above: Performed By: #### C MP, MG ####[facility] Iphpitvvzw[address] [place], [place] [address]Dr. Donna Malone Anion gap [Moles/Vol] 15.7 mmol/L Normal Th e [facility] Comment on above: Performed By: #### C MP, MG ####[facility] Zbxyqhisil[address] [place], [place] [address]Dr. Donna Malone AST [Catalytic activity/Vol] 16 U/L Normal 15-37 [facility] Comment on above: Performed By: #### C MP, MG ####[facility] Ageweaackl[address] [place], [place] [address]Dr. Donna Faisal Bilirubin [Mass/Vol] 0.5 mg/dL Normal 0.2-1.0 [facility] Comment on above: Performed By: #### C MP, MG ####[facility] Udfxhdcsfg[address] [place], [place] [address]Dr. Rubyyvan Malone Calcium [Mass/Vol] 8.6 mg/dL Normal 8.5-10.1 [facility] Comment on above: Performed By: #### C MP, MG ####[facility] Lrigrsscqp[address] [place], [place] [address]Dr. Donna Malone Chloride [Moles/Vol] 109 mmol/L Critically high 98-107 [facility] Comment on above: Performed By: #### C MP, MG ####[facility] Qaqelwpjpv[address] [place], [place] [address]Dr. Rubyyvan Malone CO2 [Moles/Vol] 21.7 mmol/L Normal 21.0-32.0 [facility] Comment on above: Performed By: #### C MP, MG ####[facility] Eoszxgbycc[address] [place], [place] [address]Dr. Rubyyvan Malone Creatinine [Mass/Vol] 0.99 mg/dL Normal 0.70-1.30 [facility] Comment on above: Performed By: #### C MP, MG ####[facility] Krhquobqgx[address] [place], [place] [address]Dr. Donna Faisal EGFR-AF LUXEMBOURGER >60 Normal >=60 [facility] Comment on above: Performed By: #### C MP, MG ####[facility] [address]zqkwlcov[address] [place], [place] [address]Dr. Donna Malone EGFR-NON AF LUXEMBOURGER >60 Normal >=60 [facility] Comment on above: Performed By: #### C MP, MG ####[facility] Pxwbinzdxx5284 [place] [address]Dr. Donna Malone Globulin (S) [Mass/Vol] 3.3 g/dL Normal [facility] Comment on above: Performed By: #### C MP, MG ####[facility] Cuqjmbvxcy7804 [place] [address]Dr. Donna Malone Glucose [Mass/Vol] 168 mg/dL Critically high 74-106 [facility] Comment on above: Performed By: #### C MP, MG ####[facility] Jdjaybohgz[address] [place], [place] [address]Dr. Donna Malone Potassium [Moles/Vol] 3.4 mmol/L Critically low 3.5-5.1 [facility] Comment on above: Performed By: #### C MP, MG ####[facility] Srtzeftcft[address] [place], [place] [address]Dr. Donna Malone Protein [Mass/Vol] 6.4 g/dL Normal 6.4-8.2 [facility] Comment on above: Performed By: #### C MP, MG ####[facility] [address]jriwnmlcf[address] [place], [place] [address]Dr. Donna Malone Sodium [Moles/Vol] 143 mmol/L Normal 136-145 [facility] Comment on above: Performed By: #### C MP, MG ####[facility] Dkyobvrjjq[address] [place], [place] [address]Dr. Donna Malone Urea nitrogen [Mass/Vol] 9.0 mg/dL Normal 7.0-18.0 [facility] Comment on above: Performed By: #### C MP, MG ####[facility] Juvnntnpxd[address] [place], [place] [address]Dr. Donna Malone Urea nitrogen/Creatinine [Mass ratio] 9.1 mg/mg Normal [facility] Comment on above: Performed By: #### C MP, MG ####[facility] [address]umgzhsfhu[address] [place], [place] [address]Dr. Donna Malone XR CHEST 2 Von 11-16-2022 XR CHEST 2 V Normal [facility] AMMONIAon 11-15-2022 Ammonia (P) [Moles/Vol] 20 umol/L Normal 11-32 [facility] Comment on above: Performed By: #### A MM ####[facility] Oqqoeotkua[address] [place] [address]Dr. Donna Faisal CBC AUTO DIFFon 11-15-2022 BASO # 0.0 103/ul Normal 0.0-0.1 [facility] Comment on above: Performed By: #### C BC ####[facility] Lqroiayktm45[address] [place] [address]Dr. Donna Malone Basophils/100 WBC (Bld) 0.5 % Normal 0.2-2.0 [facility] Comment on above: Performed By: #### C BC ####[facility] Qvyuhibzmd1668 [place] [address]Dr. Donna Malone EO # 0.1 103/ul Normal 0.0-0.7 [facility] Comment on above: Performed By: #### C BC ####[facility] Rbcxvnwzry6745 [place] [address]Dr. Donna Malone Eosinophils/100 WBC (Bld) 1.4 % Normal 0.9-7.0 [facility] Comment on above: Performed By: #### C BC ####[facility] Dfwisakgni7600 [place] [address]Dr. Donna Malone Erythrocyte distribution width (RBC) [Ratio] 14.6 % Normal 11.0-15.0 [facility] Comment on above: Performed By: #### C BC ####[facility] Pkrxecaeag11[address] [place] [address]Dr. Donna Malone Hematocrit (Bld) [Volume fraction] 36.8 % Critically low 42.0-54.0 [facility] Comment on above: Performed By: #### C BC ####[facility] Xobdekctoj8447 [place] [address]Dr. Donna Malone Hemoglobin (Bld) [Mass/Vol] 12.1 g/dL Critically low 14.0-18.0 [facility] Comment on above: Performed By: #### C BC ####[facility] Iqegybjfgk7[address] [place] [address]DrElizabeth Malone IG # 0.01 10e3/ul Normal 0.00-0.03 [facility] Comment on above: Performed By: #### C BC ####[facility] Sqfiqrfoxm4543 [place] [address]DrElizabeth Malone IG % 0.2 % Normal 0.0-0.5 [facility] Comment on above: Performed By: #### C BC ####[facility] [address]qbauwp[address] [place], [place] [address]DrElizabeth Malone LYMPH # 1.7 103/ul Normal 1.2-3.8 [facility] Comment on above: Performed By: #### C BC ####[facility] Oqisfcznem4158 [place] [address]DrElizabeth Malone Lymphocytes/100 WBC (Bld) 27.0 % Normal 20.5-60.0 [facility] Comment on above: Performed By: #### C BC ####[facility] Ctpxhybjyf3744 [place] [address]DrElizabeth Malone MANUAL DIFF REQ NO Normal [facility] Comment on above: Performed By: #### C BC ####[facility] [address]ok[address] [place], [place] [address]DrElizabeth Malone MCH (RBC) [Entitic mass] 29.5 pg Normal 25.9-34.0 [facility] Comment on above: Performed By: #### C BC ####[facility] Behrytirnp5994 [place] [address]DrElizabeth Malone MCHC (RBC) [Mass/Vol] 32.9 g/dL Normal 29.9-35.2 [facility] Comment on above: Performed By: #### C BC ####[facility] Exlusulgba8495 [place] [address]DrElizabeth Malone MCV (RBC) [Entitic vol] 89.8 fL Normal 80.0-94.0 [facility] Comment on above: Performed By: #### C BC ####[facility] Asphkcxmea8274 [place] [address]Dr. Donna Malone MONO # 0.4 103/ul Normal 0.3-0.8 [facility] Comment on above: Performed By: #### C BC ####[facility] Mrdlmrxvku0078 [place] [address]Dr. Donna Malone Monocytes/100 WBC (Bld) 6.7 % Normal 1.7-12.0 [facility] Comment on above: Performed By: #### C BC ####[facility] Hxzchkpvcz0058 [place] [address]Dr. Donna Malone NEUT # 4.0 103/ul Normal 1.4-6.5 [facility] Comment on above: Performed By: #### C BC ####[facility] Avgehtmyly[address] [place], [place] [address]Dr. Donna Malone Neutrophils/100 WBC (Bld) 64.2 % Normal 43.0-75.0 [facility] Comment on above: Performed By: #### C BC ####[facility] Vtebqlzfok[address] [place], [place] [address]Dr. Donna Malone Platelet mean volume (Bld) [Entitic vol] 11.3 fL Normal 9.5-13.5 [facility] Comment on above: Performed By: #### C BC ####[facility] Arlgkqeqyb[address] [place], [place] [address]Dr. Donna Malone PLT 169 103/ul Normal 150-450 [facility] Comment on above: Performed By: #### C BC ####[facility] Wmqycctulb6464 [place] [address]Dr. Donna Malone RBC 4.10 106/ul Critically low 4.70-6.10 [facility] Comment on above: Performed By: #### C BC ####[facility] Bzcvmfuscf8267 [place] [address]Dr. Donna Faisal WBC 6.3 103/ul Normal 4.0-11.0 [facility] Comment on above: Performed By: #### C BC ####[facility] Lxqsbblunb9402 [place] [address]Dr. Donna Malone GLYCOHEMOGLOBIN A1Con 2022 ADA RECOMMENDATION SEE BELOW Normal [facility] Comment on above: Result Comment: ADA RECOMMENDED LIMIT 4.0 - 6.0 ADA THERAPEUTIC TARGET < 7.0 ACTION SUGGESTED > 7.0 Performed By: #### A 1C ####[facility] Royovhsozm[address] [place], [place] [address]Dr. Donna Malone Glucose [Mass/Vol] 128 mg/dL Normal [facility] Comment on above: Performed By: #### A 1C ####[facility] Knkcrpdnng[address] [place], [place] [address]Dr. Donna Malone HbA1c (Bld) [Mass fraction] 6.1 % Normal 4.5-6.2 [facility] Comment on above: Performed By: #### A 1C ####[facility] Vruxefxqbc[address] [place], [place] [address]Dr. Donna Malone MAGNESIUMon 11-15-2022 Magnesium [Mass/Vol] 1.6 mg/dL Critically low 1.8-2.4 [facility] Comment on above: Performed By: #### C MP, MG ####[facility] [address]zeqzggeik[address] [place], [place] [address]Dr. Donna Malone POINT OF CARE GLUCOSEon Glucose [Mass/Vol] 165 mg/dL Critically high 74-106 [facility] Comment on above: Performed By: #### P OCGLUC ####[facility] Dlkrzuyrzw[address] [place], [place] [address]Dr. Donna Malone Glucose [Mass/Vol] 155 mg/dL Critically high 74-106 [facility] Comment on above: Performed By: #### P OCGLUC ####[facility] Yaiwvnnshh[address] [place], [place] [address]Dr. Donna Malone Glucose [Mass/Vol] 111 mg/dL Critically high 74-106 [facility] Comment on above: Performed By: #### P OCGLUC ####[facility] Dwloxylctg0496 [place] [address]Dr. Donna Malone PROF 14(COMP METB)on 023 Albumin [Mass/Vol] 2.9 g/dL Critically low 3.4-5.0 [facility] Comment on above: Performed By: #### C MP, MG ####[facility] Gxihjfgecy2432 [place] [address]Dr. Donna Malone Albumin/Globulin [Mass ratio] 1.0 {ratio} Normal [facility] Comment on above: Performed By: #### C MP, MG ####[facility] Klopyuokxz2980 [place] [address]Dr. Donna Malone ALP [Catalytic activity/Vol] 38 U/L Critically low 46-116 [facility] Comment on above: Performed By: #### C MP, MG ####[facility] Pbrmpopkuo[address] [place], [place] [address]Dr. Donna Malone ALT [Catalytic activity/Vol] 13 U/L Critically low 16-63 [facility] Comment on above: Performed By: #### C MP, MG ####[facility] Nqwcdtdryr2595 [place] [address]Dr. Donna Malone Anion gap [Moles/Vol] 11.8 mmol/L Normal [facility] Comment on above: Performed By: #### C MP, MG ####[facility] Kmmihbqonr4182 [place] [address]Dr. Donna Malone AST [Catalytic activity/Vol] 15 U/L Normal 15-37 [facility] Comment on above: Performed By: #### C MP, MG ####[facility] Jjbtwirykn3057 [place] [address]Dr. Donna Malone Bilirubin [Mass/Vol] 0.4 mg/dL Normal 0.2-1.0 [facility] Comment on above: Performed By: #### C MP, MG ####[facility] [address]arzjouw[address] [place], [place] [address]Dr. Donna Malone Calcium [Mass/Vol] 8.2 mg/dL Critically low 8.5-10.1 [facility] Comment on above: Performed By: #### C MP, MG ####[facility] Vvwrfwobhn[address] [place] [address]Dr. Donna Malone Chloride [Moles/Vol] 111 mmol/L Critically high 98-107 [facility] Comment on above: Performed By: #### C MP, MG ####[facility] Xywyosyfxt8516 [place] [address]Dr. Donna Malone CO2 [Moles/Vol] 27.9 mmol/L Normal 21.0-32.0 [facility] Comment on above: Performed By: #### C MP, MG ####[facility] Dbinejycbg[address] [place], [place] [address]Dr. Donna Malone Creatinine [Mass/Vol] 0.99 mg/dL Normal 0.70-1.30 [facility] Comment on above: Performed By: #### C MP, MG ####[facility] [address]kmdviyew[address] [place], [place] [address]Dr. Donna Malone EGFR-AF LUXEMBOURGER >60 Normal >=60 [facility] Comment on above: Performed By: #### C MP, MG ####[facility] [address]zekrmctui[address] [place], [place] [address]Dr. Donna Malone EGFR-NON AF LUXEMBOURGER >60 Normal >=60 [facility] Comment on above: Performed By: #### C MP, MG ####[facility] [address]bczawhl[address] [place], [place] [address]Dr. Donna Malone Globulin (S) [Mass/Vol] 2.9 g/dL Normal [facility] Comment on above: Performed By: #### C MP, MG ####[facility] [address] [place] [address]Dr. Donna Malone Glucose [Mass/Vol] 88 mg/dL Normal 74-106 [facility] Comment on above: Performed By: #### C MP, MG ####[facility] [address]ktlll[address] [place] [address]Dr. Donna Malone Potassium [Moles/Vol] 3.7 mmol/L Normal 3.5-5.1 [facility] Comment on above: Performed By: #### C MP, MG ####[facility] [address]geticrpsq[address] [place] [address]Dr. Donna Malone Protein [Mass/Vol] 5.8 g/dL Critically low 6.4-8.2 [facility] Comment on above: Performed By: #### C MP, MG ####[facility] Mxyidgnlua[address] [place] [address]Dr. Donna Malone Sodium [Moles/Vol] 147 mmol/L Critically high 136-145 [facility] Comment on above: Performed By: #### C MP, MG ####[facility] [address]gjcgaacxn[address] [place], [place] [address]Dr. Donna Malone Urea nitrogen [Mass/Vol] 12.0 mg/dL Normal 7.0-18.0 [facility] Comment on above: Performed By: #### C MP, MG ####[facility] Zyboublhkj[address] [place], [place] [address]Dr. Rubyyvan Malone Urea nitrogen/Creatinine [Mass ratio] 12.1 mg/mg Normal [facility] Comment on above: Performed By: #### C MP, MG ####[facility] Izoennvvxt[address] [place], [place] [address]Dr. Donna Malone ACETONE SERUMon 11-14-2022 ACETONE Negative Normal NEGATIVE [facility] Comment on above: Performed By: #### A CETON ####[facility] Ngzqdozvtl[address] [place], [place] [address]Dr. Donna Malone AMMONIAon 11-14-2022 Ammonia (P) [Moles/Vol] 17 umol/L Normal 11-32 [facility] Comment on above: Performed By: #### A MM ####[facility] Ayguwfzvpw[address] [place], [place] [address]Dr. Donna Malone BLOOD GASES BTYon 11-14-2022 02 MODE ROOM AIR Normal [facility] Comment on above: Performed By: #### A BG ####[facility] Bsqjyunkmq[address] [place], [place] [address]Dr. Donna Malone ALLENS TEST Positive Normal [facility] Comment on above: Performed By: #### A BG ####[facility] Yypwbwwaqr[address] [place], [place] [address]Dr. Donna Malone Base excess Calc (Bld) [Moles/Vol] 1.1 mmol/L Normal -2.0-2.0 [facility] Comment on above: Performed By: #### A BG ####[facility] Ycuzhnrhhb[address] [place], [place] [address]Dr. Donna Malone BIPAP PRESSURE Normal [facility] Comment on above: Performed By: #### A BG ####[facility] [place] [facility] Ieyrnchehf[address] [place], [place] [address]Dr. Donna Malone CPAP Normal [facility] Comment on above: Performed By: #### A BG ####[facility] Wrvocamtoi[address] [place], [place] [address]Dr. Donna Malone FIO2 [facility] Comment on above: Performed By: #### A BG ####[facility] Jsxrijozwh[address] [place], [place] [address]Dr. Donna Malone HCO3 (Bld) [Moles/Vol] 26.0 mmol/L Normal 22.0-26.0 [facility] Comment on above: Performed By: #### A BG ####[facility] Kdebkdtjok[address] [place], [place] [address]Dr. Donna Malone LPM [facility] Comment on above: Performed By: #### A BG ####[facility] Kefyilitrs[address] [place], [place] [address]Dr. Donna Malone MINUTE VOLUME Normal [facility] Comment on above: Performed By: #### A BG ####[facility] Focavepgar[address] [place], [place] [address]Dr. Donna Malone Oxygen (Bld) [Partial pressure] 62.0 mm[Hg] Critically low 80.0-100.0 [facility] Comment on above: Performed By: #### A BG ####[facility] Wwfsuhbiom[address] [place], [place] [address]Dr. Donna Malone Oxygen saturation in Blood 91.9 % Critically low 95.0-100.0 [facility] Comment on above: Performed By: #### A BG ####[facility] Uq[address]efpli[address] [place] [address]Dr. Donna Malone PCO2 42.8 mmHg Normal 35.0-45.0 [facility] Comment on above: Performed By: #### A BG ####[facility] Xccvmuhyqp[address] [place] [address]Dr. Donna Malone PEEP [facility] Comment on above: Performed By: #### A BG ####[facility] Kxwvfzlqsh[address] [place] [address]Dr. Donna Malone pH (Bld) 7.392 [pH] Normal 7.350-7.45 0 [facility] Comment on above: Performed By: #### A BG ####[facility] Feqbzjtjvn6[address] [place], [place] [address]Dr. Donna Malone PIP [facility] Comment on above: Performed By: #### A BG ####[facility] Xhbxanzjss[address] [place], [place] [address]Dr. Donna Malone PS [facility] Comment on above: Performed By: #### A BG ####[facility] Hzfyjnarzv4914[address] [place], [place] [address]Dr. Donna Malone PUNCTURE SITE LR [facility] Comment on above: Performed By: #### A BG ####[facility] Malikhyilr[address] [place], [place] [address]Dr. Donna Malone RATE [facility] Comment on above: Performed By: #### A BG ####[facility] Ixpwdqsqiu[address] [place], [place] [address]Dr. Donna Malone VENT MODE [facility] Comment on above: Performed By: #### A BG ####[facility] Fojzfcrxqb[address] [place], [place] [address]Dr. Donna Malone VT [facility] Comment on above: Performed By: #### A BG ####[facility] Qbwpgzegxe7[address] [place], [place] [address]Dr. Donna Malone BNPon 11-14-2022 Natriuretic peptide B (Bld) [Mass/Vol] 148.0 pg/mL Normal <=900.0 [facility] Comment on above: Performed By: #### B HOGSHEAD ROLLER, CMP, HSTROPN ####[facility] [address]fiemaniq[address] [place] [address]Dr. Donna Malone CBC AUTO DIFFon 11-14-2022 BASO # 0.0 103/ul Normal 0.0-0.1 [facility] Comment on above: Performed By: #### C BC ####[facility] [address]gxrdsiwfi[address] [place], [place] [address]Dr. Donna Faisal Basophils/100 WBC (Bld) 0.5 % Normal 0.2-2.0 [facility] Comment on above: Performed By: #### C BC ####[facility] Tithahdlam[address] [place], [place] [address]Dr. Donna Malone EO # 0.1 103/ul Normal 0.0-0.7 [facility] Comment on above: Performed By: #### C BC ####[facility] Rptvcdzhtr[address] [place], [place] [address]Dr. Donna Malone Eosinophils/100 WBC (Bld) 0.6 % Critically low 0.9-7.0 [facility] Comment on above: Performed By: #### C BC ####[facility] Uldsusitwj[address] [place], [place] [address]Dr. Donna Malone Erythrocyte distribution width (RBC) [Ratio] 14.8 % Normal 11.0-15.0 [facility] Comment on above: Performed By: #### C BC ####[facility] Yzcyutaova[address] [place], [place] [address]Dr. Donna Malone Hematocrit (Bld) [Volume fraction] 41.9 % Critically low 42.0-54.0 [facility] Comment on above: Performed By: #### C BC ####[facility] Rcdsjelxtk[address] [place], [place] [address]Dr. Donna Malone Hemoglobin (Bld) [Mass/Vol] 13.6 g/dL Critically low 14.0-18.0 [facility] Comment on above: Performed By: #### C BC ####[facility] [address] [place] [id number]. Rubyyvan Malone IG # 0.01 10e3/ul Normal 0.00-0.03 [facility] Comment on above: Performed By: #### C BC ####[facility] Up[address]trae[address] [place] [address]Dr. Donna Malone IG % 0.1 % Normal 0.0-0.5 [facility] Comment on above: Performed By: #### C BC ####[facility] [address]zrx[address] [place] [address]Dr. Donna Malone LYMPH # 1.7 103/ul Normal 1.2-3.8 [facility] Comment on above: Performed By: #### C BC ####[facility] [address]okbdj[address] [place] [address]Dr. Donna Malone Lymphocytes/100 WBC (Bld) 21.2 % Normal 20.5-60.0 [facility] Comment on above: Performed By: #### C BC ####[facility] Inovfjlbmq[address] [place], [place] [address]Dr. Donna Malone MANUAL DIFF REQ NO Normal [facility] Comment on above: Performed By: #### C BC ####[facility] [address]fhgc[address] [place] [address]Dr. Rubyyvan Malone MCH (RBC) [Entitic mass] 29.2 pg Normal 25.9-34.0 [facility] Comment on above: Performed By: #### C BC ####[facility] Ytxjygulrf75[address] [place] [address]Dr. Donna Malone MCHC (RBC) [Mass/Vol] 32.5 g/dL Normal 29.9-35.2 [facility] Comment on above: Performed By: #### C BC ####[facility] V[address]qmpbuv[address] [place] [address]Dr. Rubyyvan Malone MCV (RBC) [Entitic vol] 90.1 fL Normal 80.0-94.0 [facility] Comment on above: Performed By: #### C BC ####[facility] [address]lf[address] [place] [id number]. Donna Malone MONO # 0.4 103/ul Normal 0.3-0.8 [facility] Comment on above: Performed By: #### C BC ####[facility] A[address]rb[address] [place] [address]Dr. Donna Malone Monocytes/100 WBC (Bld) 5.5 % Normal 1.7-12.0 [facility] Comment on above: Performed By: #### C BC ####[facility] Wtzbypqili[address] [place] [id number]. Donna Malone NEUT # 5.7 103/ul Normal 1.4-6.5 [facility] Comment on above: Performed By: #### C BC ####[facility] Abeqrklcmf[address] [place] [address]Dr. Donna Malone Neutrophils/100 WBC (Bld) 72.1 % Normal 43.0-75.0 [facility] Comment on above: Performed By: #### C BC ####[facility] Cbvbaxkgvg8[address] [place] [id number]. Donna Malone Platelet mean volume (Bld) [Entitic vol] 11.5 fL Normal 9.5-13.5 [facility] Comment on above: Performed By: #### C BC ####[facility] Zwvuaytgsx32[address] [place] [id number]. Donna Malone PLT 193 103/ul Normal 150-450 [facility] Comment on above: Performed By: #### C BC ####[facility] Tahsymtbat24[address] [place] [id number]. Donna Malone RBC 4.65 106/ul Critically low 4.70-6.10 [facility] Comment on above: Performed By: #### C BC ####[facility] Otzfdcdaiv6[address] [place] [id number]. Donna Malone WBC 7.9 103/ul Normal 4.0-11.0 [facility] Comment on above: Performed By: #### C BC ####[facility] Ops[address]axzcg[address] [place] [id number]. Donna Malone CT HEAD WO CONon 11-14-2022 CT HEAD WO CON Normal [facility] CULTURE BLOODon 11-14-2022 Microscopic examination of blood, culture Culture Observations: NO GROWTH AT 5 DAYS. Normal [facility] Comment on above: Performed By: #### B LDCX2 ####[facility] Gx[address]ijigy[address] [place] [id number]. Donna Malone Microscopic examination of blood, culture Culture Observations: NO GROWTH AT 5 DAYS. Normal [facility] Comment on above: Performed By: #### B LDCX1 ####[facility] Rsppyaaneg[address] [place] [address]Dr. Rubyyvan Malone Covid-19 PCR ([facility])on SARS-CoV-2 (COVID-19) RNA JOSÉ MIGUEL+probe Ql (Unsp spec) Not detected Normal NOT DETECTED [facility] Comment on above: Result Comment: When [...] for this test is supported by the [employer] Member of Health and Human Service's declaration that [...] be used). Performed By: #### C VDTBH ####[facility] Ntdglalllf[address] [place] [address]Dr. Donna Malone DRUG SCREEN RAPID (URINE)on 11-14-2022 AMP Negative Normal NEGATIVE [facility] Comment on above: Performed By: #### D SHARONA, ERUR ####[facility] Ozjhftdppd[address] [place], [place] [address]Dr. Donna Malone BAR Negative Normal NEGATIVE [facility] Comment on above: Performed By: #### D SHARONA, ERUR ####[facility] [address]dhnfgidpy[address] [place], [place] [address]Dr. Donna Malone BUP Negative Normal NEGATIVE [facility] Comment on above: Performed By: #### D RUGRPD, ERUR ####[facility] Rqdkibrldv[address] [place], [place] [address]Dr. Donna Malone BZO Negative Normal NEGATIVE [facility] Comment on above: Performed By: #### D RUGDANNIELLED, ERUR ####[facility] Twfpk[address]ucw[address] [place], [place] [address]Dr. Donna Malone EVONNE Negative Normal NEGATIVE [facility] Comment on above: Performed By: #### D KAMRYND, ERUR ####[facility] Qddnnbgatd[address] [place], [place] [address]Dr. Donna Malone CUT-OFFS SEE BELOW Normal [facility] Comment on above: Result Comment: AMP [...] ng/mL Performed By: #### D KAMRYND, ERUR ####[facility] Lzhzhkxxyf[address] [place], [place] [address]Dr. Donna Malone DRUG CUT HEADER DRUG CLASS TEST SYST EM CUT-OFF CONCENTRATIONS ARE FOLLOWS: Normal [facility] Comment on above: Performed By: #### D SHARONA, ERUR ####[facility] Wwnbqmqlcm[address] [place], [place] [address]Dr. Donna Malone mAMP Negative Normal NEGATIVE [facility] Comment on above: Performed By: #### D SHARONA, ERUR ####[facility] [address]ctp[address] [place] [address]Dr. Donna Malone MTD Negative Normal NEGATIVE [facility] Comment on above: Performed By: #### D SHARONA, ERUR ####[facility] Vobsqapiwg[address] [place] [address]Dr. Donna Malone OPI Negative Normal NEGATIVE [facility] Comment on above: Performed By: #### D SHARONA, ERUR ####[facility] Gfjnqwoder4[address] [place] [address]Dr. Donna Malone OXY Negative Normal NEGATIVE [facility] Comment on above: Performed By: #### D SHARONA, ERUR ####[facility] Ypsbvcldxa7[address] [place] [address]Dr. Rubyyvan Malone PCP Negative Normal NEGATIVE [facility] Comment on above: Performed By: #### Calvin TABOR, ERUR ####[facility] Alfzmqzjal[address] [place] [address]Dr. Donna Faisal PPX Negative Normal NEGATIVE [facility] Comment on above: Performed By: #### Calvin TABOR, ERUR ####[facility] Wcbtskefse[address] [place] [address]Dr. Donna Faisal TCA Positive Abnormal NEGATIVE [facility] Comment on above: Performed By: #### Calvin TABOR, ERUR ####[facility] Pfnbnabesa25[address] [place] [address]Dr. Donna Faisal THC Negative Normal NEGATIVE [facility] Comment on above: Performed By: #### D SHARONA, ERUR ####[facility] K[address]az[address]elyt[address] [place] [address]Dr. Donna Malone ER URINE PROFILEon 3 Bilirubin Ql (U) MODERATE Abnormal NEGATIVE [facility] Comment on above: Performed By: #### D SHARONA, ERUR ####[facility] L[address]ydftmhd[address] [place] [address]Dr. Donna Malone Clarity (U) CLEAR Normal CLEAR [facility] Comment on above: Performed By: #### Calvin TABOR, ERUR ####[facility] Uecyopksad[address] [place] [address]Dr. Donna Malone Color (U) DK. YELLOW Normal YELLOW [facility] Comment on above: Performed By: #### Calvin TABOR, ERUR ####[facility] Nwmwxwvert99[address] [place] [address]Dr. Donna Malone ERUAHD A micrscopic examina tion will be performed if indicated. Normal [facility] Comment on above: Performed By: #### Calvin TABOR, ERUR ####[facility] Syompbsmkl[address] [place], [place] [address]Dr. Donna Malone Glucose Ql (U) Negative Normal NEGATIVE [facility] Comment on above: Performed By: #### Calvin TABOR, ERUR ####[facility] Xppkcvlnsq7[address] [place], [place] [address]Dr. Donna Malone Hemoglobin Ql (U) Negative Normal NEGATIVE [facility] Comment on above: Performed By: #### Calvin TABOR, ERUR ####[facility] Mrzkdfhbos[address] [place], [place] [address]Dr. Donna Malone Ketones Ql (U) 40 mg/dl Abnormal NEGATIVE [facility] Comment on above: Performed By: #### Calvin TABOR, ERUR ####[facility] [address]ctzomfwjv[address] [place], [place] [address]Dr. Donna Malone LEUKOCYTES Negative Normal NEGATIVE [facility] Comment on above: Performed By: #### Calvin TABOR, ERUR ####[facility] Vhtmnmnjhg4[address] [place], [place] [address]Dr. Donna Malone Nitrite Ql (U) Negative Normal NEGATIVE [facility] Comment on above: Performed By: #### Calvin TABOR, ERUR ####[facility] Rehkhtnuth[address] [place], [place] [address]Dr. Donna Malone pH (U) 6.0 [pH] Normal 5-9 [facility] Comment on above: Performed By: #### Calvin TABOR, ERUR ####[facility] Egscrfxqky99[address] [place] [address]Dr. Donna Malone SPEC GRAVITY 1.030 Abnormal 1.005-<=1. 025 [facility] Comment on above: Performed By: #### D WESLY TABORR ####[facility] Hoxiqwfnyn[address] [place] [address]Dr. Donna Malone UA PROTEIN TRACE Normal NEGATIVE/ TRACE [facility] Comment on above: Performed By: #### D SHARONA, ERUR ####[facility] Lqcmxkrgmz[address] [place] [address]Dr. Donna Malone UR MICRO IND NOT INDICATED Normal [facility] Comment on above: Performed By: #### D WESLY TABORR ####[facility] Ikplpozram[address] [place], [place] [address]Dr. Donna Malone Urobilinogen Qn (U) 1.0 {Jermain'U}/dL Normal 0.2 - 1. 0 [facility] Comment on above: Performed By: #### WESLY LAUR ####[facility] Ykelbtxhro[address] [place], [place] [address]Dr. Donna Malone LACTATE/LACTIC ACIDon 2022 Lactate [Moles/Vol] 1.6 mmol/L Normal 0.4-1.9 [facility] Comment on above: Performed By: #### L ACT ####[facility] [address]ebnyeudnd[address] [place], [place] [address]Dr. Donna Malone PROF 14(COMP METB)on 023 Albumin [Mass/Vol] 3.4 g/dL Normal 3.4-5.0 [facility] Comment on above: Performed By: #### B HOGSHEAD ROLLER, CMP, HSTROPN ####[facility] Cbhpcqxqbf[address] [place], [place] [address]Dr. Donna Malone Albumin/Globulin [Mass ratio] 1.0 {ratio} Normal [facility] Comment on above: Performed By: #### B HOGSHEAD ROLLER, CMP, HSTROPN ####[facility] Elgpjbovai[address] [place], [place] [address]Dr. Donna Malone ALP [Catalytic activity/Vol] 48 U/L Normal 46-116 [facility] Comment on above: Performed By: #### B HOGSHEAD ROLLER, CMP, HSTROPN ####[facility] Pffwpvzqro[address] [place] [address]Dr. Donna Malone ALT [Catalytic activity/Vol] 13 U/L Critically low 16-63 [facility] Comment on above: Performed By: #### B HOGSHEAD ROLLER, CMP, HSTROPN ####[facility] Sxauyhpuce[address] [place] [address]Dr. Donna Malone Anion gap [Moles/Vol] 13.2 mmol/L Normal Th e [facility] Comment on above: Performed By: #### B HOGSHEAD ROLLER, CMP, HSTROPN ####[facility] Cuxpoxctid[address] [place], [place] [address]Dr. Donna Malone AST [Catalytic activity/Vol] 13 U/L Critically low 15-37 [facility] Comment on above: Performed By: #### B HOGSHEAD ROLLER, CMP, HSTROPN ####[facility] [address]iskcisvbn[address] [place], [place] [address]Dr. Donna Malone Bilirubin [Mass/Vol] 0.4 mg/dL Normal 0.2-1.0 [facility] Comment on above: Performed By: #### B HOGSHEAD ROLLER, CMP, HSTROPN ####[facility] Yeiiiiewlm[address] [place], [place] [address]Dr. Donna Malone Calcium [Mass/Vol] 9.2 mg/dL Normal 8.5-10.1 [facility] Comment on above: Performed By: #### B HOGSHEAD ROLLER, CMP, HSTROPN ####[facility] [address]zdzyjbagk[address] [place], [place] [address]Dr. Donna Malone Chloride [Moles/Vol] 108 mmol/L Critically high 98-107 [facility] Comment on above: Performed By: #### B HOGSHEAD ROLLER, CMP, HSTROPN ####[facility] Xyicjhpztf[address] [place] [address]Dr. Donna Malone CO2 [Moles/Vol] 27.0 mmol/L Normal 21.0-32.0 [facility] Comment on above: Performed By: #### B HOGSHEAD ROLLER, CMP, HSTROPN ####[facility] B[address]okzfhy[address] [place] [address]Dr. Donna Malone Creatinine [Mass/Vol] 1.14 mg/dL Normal 0.70-1.30 [facility] Comment on above: Performed By: #### B HOGSHEAD ROLLER, CMP, HSTROPN ####[facility] Ujrsxsdyax44[address] [place] [address]Dr. Donna Malone EGFR-AF LUXEMBOURGER >60 Normal >=60 [facility] Comment on above: Performed By: #### B HOGSHEAD ROLLER, CMP, HSTROPN ####[facility] Dsexdktxtr[address] [place], [place] [address]Dr. Donna Malone EGFR-NON AF LUXEMBOURGER >60 Normal >=60 [facility] Comment on above: Performed By: #### B HOGSHEAD ROLLER, CMP, HSTROPN ####[facility] Zjxqaltmmy[address] [place], [place] [address]Dr. Donna Malone Globulin (S) [Mass/Vol] 3.5 g/dL Normal [facility] Comment on above: Performed By: #### B HOGSHEAD ROLLER, CMP, HSTROPN ####[facility] [address]xtshri[address] [place], [place] [address]Dr. Donna Malone Glucose [Mass/Vol] 126 mg/dL Critically high 74-106 [facility] Comment on above: Performed By: #### B HOGSHEAD ROLLER, CMP, HSTROPN ####[facility] [address]ov[address]rlqeg[address] [place], [place] [address]Dr. Donna Malone Potassium [Moles/Vol] 4.2 mmol/L Normal 3.5-5.1 [facility] Comment on above: Performed By: #### B HOGSHEAD ROLLER, CMP, HSTROPN ####[facility] [address]mkwr[address] [place], [place] [address]Dr. Donna Malone Protein [Mass/Vol] 6.9 g/dL Normal 6.4-8.2 [facility] Comment on above: Performed By: #### B HOGSHEAD ROLLER, CMP, HSTROPN ####[facility] Ciauudyrwf[address] [place] [id number]. Donna Malone Sodium [Moles/Vol] 144 mmol/L Normal 136-145 [facility] Comment on above: Performed By: #### B HOGSHEAD ROLLER, CMP, HSTROPN ####[facility] Wyednsxook[address] [place] [id number]. Donna Malone Urea nitrogen [Mass/Vol] 17.0 mg/dL Normal 7.0-18.0 [facility] Comment on above: Performed By: #### B HOGSHEAD ROLLER, CMP, HSTROPN ####[facility] [address]xi[address]poj[address] [place], [place] [address]Hw. Donna Malone Urea nitrogen/Creatinine [Mass ratio] 14.9 mg/mg Normal [facility] Comment on above: Performed By: #### B HOGSHEAD ROLLER, CMP, HSTROPN ####[facility] Yqmkqifncu34[address] [place] [id number]. Donna Malone TROPONIN, HIGH SENSITIVITYon 11-14-2022 HSTROP 11.2 pg/mL Normal 4.0-76.1 [facility] Comment on above: Result Comment: CUT- OFF POINTS HAVE BEEN ESTABLISHED BASED ON THE FOURTH UNIVERSAL DEFINITIONS OF MYOCARDIALINFARCTION. THE UPPER REFERENCE LIMIT (URL) OF TROPONIN, DEFINED THE 99TH PERCENTILE OFcTnI DISTRIBUTION IN A REFERENCE POPULATION, HAS BEEN CONFIRMED THE DECISION THRESHOLDFOR GA DIAGNOSIS. Performed By: #### B HOGSHEAD ROLLER, CMP, HSTROPN ####[facility] Hkdgwyenuu74[address] [place] [id number]. Donna Malone XR CHEST 1 Von 11-14-2022 XR CHEST 1 V Normal [facility] XR lumbar spine AP/LAT/FLX/E XTon 11-01-2022 XR lumbar spine AP/LAT/FLX/EXT [facility] [place] [address] XRay Report Signed Patient: Taylor Mcclellan SR MR#: [id number] : 1955 Acct:[id number] Age/Sex: 67 / M ADM Date: 11/01/22 Loc: XD Room: Type: [facility] Attending Dr: Benson Lane MD Copies to: [...] Mj Rodriguez M.D.11/01/2022 3:07 PM Dictation Location: [place] [id number] Transcribed By: [facility] 11/01/22 1507 Dictated By: Mj Rodriguez II, MD 11/01/22 1505 Signed By: 11/01/22 1507 [facility] ER URINE PROFILEon 3 Bilirubin Ql (U) Negative Normal NEGATIVE [facility] Comment on above: Performed By: #### E RUR ####[facility] Wqu[address]ytmpm[address] [place] [address]Dr. Donna Malone Clarity (U) CLEAR Normal CLEAR [facility] Comment on above: Performed By: #### E RUR ####[facility] Igotjzovnt5437 [place] [address]DrElizabeth Malone Color (U) YELLOW Normal YELLOW [facility] Comment on above: Performed By: #### E RUR ####[facility] Ivbnvkkicx2522 [place] [address]Dr. Donna Malone ERUAHD A micrscopic examina tion will be performed if indicated. Normal [facility] Comment on above: Performed By: #### E RUR ####[facility] Vzgeukoias5983 [place] [address]Dr. Donna Malone Glucose Ql (U) 250 mg/dl Abnormal NEGATIVE [facility] Comment on above: Performed By: #### E RUR ####[facility] Mek[address] [place], [place] [address]Dr. Donna Malone Hemoglobin Ql (U) TRACE-INTACT Abnormal NEGATIVE [facility] Comment on above: Performed By: #### E RUR ####[facility] Axamifhhnj[address] [place], [place] [address]Dr. Donna Malone Ketones Ql (U) Negative Normal NEGATIVE [facility] Comment on above: Performed By: #### E RUR ####[facility] Hgqjvluehf[address] [place], [place] [address]Dr. Donna Malone LEUKOCYTES Negative Normal NEGATIVE [facility] Comment on above: Performed By: #### E RUR ####[facility] Dcukqlnnjm[address] [place], [place] [address]Dr. Donna Malone Nitrite Ql (U) Negative Normal NEGATIVE [facility] Comment on above: Performed By: #### E RUR ####[facility] Ucatwkpjms[address] [place], [place] [address]Dr. Donna Malone pH (U) 5.5 [pH] Normal 5-9 [facility] Comment on above: Performed By: #### E RUR ####[facility] Cdgvdzpldq[address] [place], [place] [address]Dr. Donna Malone SPEC GRAVITY 1.025 Normal 1.005-<=1. 025 [facility] Comment on above: Performed By: #### E RUR ####[facility] Engdfhojvv86[address] [place], [place] [address]Dr. Donna Malone UA PROTEIN Negative Normal NEGATIVE/ TRACE [facility] Comment on above: Performed By: #### E RUR ####[facility] Goclpdgpoz4897 [place] [address]Dr. Donna Malone UR MICRO IND NOT INDICATED Normal [facility] Comment on above: Performed By: #### E RUR ####[facility] Uuorqqxxos[address] [place], [place] [address]Dr. Rubyyvan Malone Urobilinogen Qn (U) 0.2 {Jermain'U}/dL Normal 0.2 - 1. 0 [facility] Comment on above: Performed By: #### E RUR ####[facility] Akxdguofes[address] [place], [place] [address]Dr. Donna Faisal CBC AUTO DIFFon 10-26-2022 BASO # 0.0 103/ul Normal 0.0-0.1 [facility] Comment on above: Performed By: #### C BC ####[facility] Xmmiajwbwl98[address] [place], [place] [address]Dr. Donna Malone Basophils/100 WBC (Bld) 0.4 % Normal 0.2-2.0 [facility] Comment on above: Performed By: #### C BC ####[facility] Tgelrsnugt9[address] [place], [place] [address]Dr. Rubyyvan Malone EO # 0.0 103/ul Normal 0.0-0.7 [facility] Comment on above: Performed By: #### C BC ####[facility] Tiuniwodwk[address] [place], [place] [address]Dr. Donna Malone Eosinophils/100 WBC (Bld) 0.0 % Critically low 0.9-7.0 [facility] Comment on above: Performed By: #### C BC ####[facility] Xvjtkspamk72[address] [place], [place] [address]Dr. Donna Malone Erythrocyte distribution width (RBC) [Ratio] 14.5 % Normal 11.0-15.0 [facility] Comment on above: Performed By: #### C BC ####[facility] Gczskejgza9[address] [place], [place] [address]Dr. Donna Malone Hematocrit (Bld) [Volume fraction] 41.2 % Critically low 42.0-54.0 [facility] Comment on above: Performed By: #### C BC ####[facility] [address]ukpsugpxe7469 [place] [id number]. Donna Malone Hemoglobin (Bld) [Mass/Vol] 13.7 g/dL Critically low 14.0-18.0 [facility] Comment on above: Performed By: #### C BC ####[facility] Rkhbfjdvre9439 [place] [address]Dr. Donna Malone IG # 0.02 10e3/ul Normal 0.00-0.03 [facility] Comment on above: Performed By: #### C BC ####[facility] Ypikolwhtr20[address] [place] [address]Dr. Donna Faisal IG % 0.2 % Normal 0.0-0.5 [facility] Comment on above: Performed By: #### C BC ####[facility] Ipahxkgjkk[address] [place], [place] [address]Dr. Rubyyvan Malone LYMPH # 1.2 103/ul Normal 1.2-3.8 [facility] Comment on above: Performed By: #### C BC ####[facility] Prminfqcaf3951 [place] [address]Dr. Donna Malone Lymphocytes/100 WBC (Bld) 14.4 % Critically low 20.5-60.0 [facility] Comment on above: Performed By: #### C BC ####[facility] Atsvtnnooo[address] [place], [place] [address]Dr. Rubyyvan Malone MANUAL DIFF REQ NO Normal [facility] Comment on above: Performed By: #### C BC ####[facility] Alhsfqbpsw4637 [place] [id number]. Donna Faisal MCH (RBC) [Entitic mass] 29.4 pg Normal 25.9-34.0 [facility] Comment on above: Performed By: #### C BC ####[facility] Bszvrbjruc9516 [place] [address]Dr. Donna Faisal MCHC (RBC) [Mass/Vol] 33.3 g/dL Normal 29.9-35.2 [facility] Comment on above: Performed By: #### C BC ####[facility] Mifxyzvivt2755 [place] [address]Dr. Donna Malone MCV (RBC) [Entitic vol] 88.4 fL Normal 80.0-94.0 [facility] Comment on above: Performed By: #### C BC ####[facility] Dytcmmwdnj5173 [place] [address]Dr. Donna Malone MONO # 0.2 103/ul Critically low 0.3-0.8 [facility] Comment on above: Performed By: #### C BC ####[facility] Feukvfalag4775 [place] [address]Dr. Donna Malone Monocytes/100 WBC (Bld) 2.5 % Normal 1.7-12.0 [facility] Comment on above: Performed By: #### C BC ####[facility] W[address] [place], [place] [address]Dr. Donna Malone NEUT # 6.9 103/ul Critically high 1.4-6.5 [facility] Comment on above: Performed By: #### C BC ####[facility] Cyzrhchsdr[address] [place], [place] [address]Dr. Donna Malone Neutrophils/100 WBC (Bld) 82.5 % Critically high 43.0-75.0 [facility] Comment on above: Performed By: #### C BC ####[facility] Ntpgop[address]vsm[address] [place], [place] [address]Dr. Donna Malone Platelet mean volume (Bld) [Entitic vol] 11.3 fL Normal 9.5-13.5 [facility] Comment on above: Performed By: #### C BC ####[facility] Dbtrvkzejs9045 [place] [address]Dr. Donna Faisal PLT 241 103/ul Normal 150-450 [facility] Comment on above: Performed By: #### C BC ####[facility] Opmyhmsabb7147 [place] [address]Dr. Rubyyvan Faisal RBC 4.66 106/ul Critically low 4.70-6.10 [facility] Comment on above: Performed By: #### C BC ####[facility] Vbaoffrjsl3259 [place] [address]Dr. Donna Malone WBC 8.4 103/ul Normal 4.0-11.0 [facility] Comment on above: Performed By: #### C BC ####[facility] Cefknwyafo4572 [place] [address]Dr. Donna Malone CRPon 10-26-2022 CRP [Mass/Vol] mg/L Normal <=1.0 [facility] Comment on above: Performed By: #### C RP, BMP ####[facility] Hihvyqpogz4[address] [place] [address] Donna [address] CT LSPINE WO CONon 3 CT LSPINE WO CON Normal [facility] PROF CHEM 8 (BAS METB)on Anion gap [Moles/Vol] 11.9 mmol/L Normal [facility] Comment on above: Performed By: #### C RP, BMP ####[facility] Hnhboifuqh4049 [place] [address]Dr. Donna Malone Calcium [Mass/Vol] 9.1 mg/dL Normal 8.5-10.1 [facility] Comment on above: Performed By: #### C RP, BMP ####[facility] Hjwezizria0173 [place] [address]Dr. Donna Malone Chloride [Moles/Vol] 104 mmol/L Normal 98-107 [facility] Comment on above: Performed By: #### C RP, BMP ####[facility] Uziwbzgrbk2529 [place] [address]Dr. Donna Malone CO2 [Moles/Vol] 26.3 mmol/L Normal 21.0-32.0 [facility] Comment on above: Performed By: #### C RP, BMP ####[facility] Txweezfglv3199 [place] [address]Dr. Donna Malone Creatinine [Mass/Vol] 0.99 mg/dL Normal 0.70-1.30 [facility] Comment on above: Performed By: #### C RP, BMP ####[facility] Czviiewpoc9926 [place] [address]Dr. Donna Malone EGFR-AF LUXEMBOURGER >60 Normal >=60 [facility] Comment on above: Performed By: #### C RP, BMP ####[facility] Hcnjpiqzle3738 [place] [address]Dr. Donna Malone EGFR-NON AF LUXEMBOURGER >60 Normal >=60 [facility] Comment on above: Performed By: #### C RP, BMP ####[facility] Lwavctfcxz1842 [place] [address]Dr. Donna Malone Glucose [Mass/Vol] 152 mg/dL Critically high 74-106 [facility] Comment on above: Performed By: #### C RP, BMP ####[facility] Boaensqaww8093 [place] [address]Dr. Donna Malone Potassium [Moles/Vol] 4.2 mmol/L Normal 3.5-5.1 [facility] Comment on above: Performed By: #### C RP, BMP ####[facility] Mrgczzukfl[address] [place], [place] [address]Dr. Donna Malone Sodium [Moles/Vol] 138 mmol/L Normal 136-145 [facility] Comment on above: Performed By: #### C RP, BMP ####[facility] Fguydjpvaa[address] [place], [place] [address]Dr. Donna Malone Urea nitrogen [Mass/Vol] 12.0 mg/dL Normal 7.0-18.0 [facility] Comment on above: Performed By: #### C RP, BMP ####[facility] Tukghjqeph7130 [place] [address]Dr. Donna Malone Urea nitrogen/Creatinine [Mass ratio] 12.1 mg/mg Normal [facility] Comment on above: Performed By: #### C RP, BMP ####[facility] Hbzmncfgfu2570 [place] [address]Dr. Donna Malone SED RATE [facility] 2022 SED RATE 57 mm/hr Critically high <=20 [facility] Comment on above: Performed By: #### S EDR ####[facility] Attkezmadg0261 [place] [address]Dr. Donna Faisal CBC AUTO DIFFon 10-25-2022 BASO # 0.0 103/ul Normal 0.0-0.1 [facility] Comment on above: Performed By: #### C BC ####[facility] Mucubbrvpn18[address] [place], [place] [address]Dr. Donna Malone Basophils/100 WBC (Bld) 0.4 % Normal 0.2-2.0 [facility] Comment on above: Performed By: #### C BC ####[facility] Ijakudvqiy[address] [place], [place] [address]Dr. Donna Malone EO # 0.0 103/ul Normal 0.0-0.7 [facility] Comment on above: Performed By: #### C BC ####[facility] Jhlphcvjzh[address] [place], [place] [address]Dr. Donna Malone Eosinophils/100 WBC (Bld) 0.0 % Critically low 0.9-7.0 [facility] Comment on above: Performed By: #### C BC ####[facility] Mzpdwoysdz8[address] [place], [place] [address]Dr. Donna Malone Erythrocyte distribution width (RBC) [Ratio] 14.5 % Normal 11.0-15.0 [facility] Comment on above: Performed By: #### C BC ####[facility] Egqtvderfj[address] [place], [place] [address]Dr. Donna Malone Hematocrit (Bld) [Volume fraction] 43.8 % Normal 42.0-54.0 [facility] Comment on above: Performed By: #### C BC ####[facility] Flkhetcpxh5[address] [place], [place] [address]Dr. Donna Malone Hemoglobin (Bld) [Mass/Vol] 14.2 g/dL Normal 14.0-18.0 [facility] Comment on above: Performed By: #### C BC ####[facility] Ncfwspwubw6[address] [place], [place] [address]Dr. Donna Malone IG # 0.01 10e3/ul Normal 0.00-0.03 [facility] Comment on above: Performed By: #### C BC ####[facility] Dsasxuitjm8140 [place] [address]Dr. Donna Malone IG % 0.1 % Normal 0.0-0.5 [facility] Comment on above: Performed By: #### C BC ####[facility] Xrzgivwfnz2229 [place] [address]Dr. Donna Malone LYMPH # 1.4 103/ul Normal 1.2-3.8 [facility] Comment on above: Performed By: #### C BC ####[facility] Snsfajpccf6979 [place] [address]Dr. Donan Faisal Lymphocytes/100 WBC (Bld) 17.1 % Critically low 20.5-60.0 [facility] Comment on above: Performed By: #### C BC ####[facility] Xfcyfekqct3811 [place] [address]Dr. Rubyyvan Malone MANUAL DIFF REQ NO Normal [facility] Comment on above: Performed By: #### C BC ####[facility] Mtqnecjyrf[address] [place], [place] [address]Dr. Donna Malone MCH (RBC) [Entitic mass] 29.1 pg Normal 25.9-34.0 [facility] Comment on above: Performed By: #### C BC ####[facility] Cojvkiuwjr5252 [place] [address]Dr. Donna Malone MCHC (RBC) [Mass/Vol] 32.4 g/dL Normal 29.9-35.2 [facility] Comment on above: Performed By: #### C BC ####[facility] Sxmrjmpntj[address] [place], [place] [address]Dr. Donna Malone MCV (RBC) [Entitic vol] 89.8 fL Normal 80.0-94.0 [facility] Comment on above: Performed By: #### C BC ####[facility] Nwegpdlkmf[address] [place], [place] [address]Dr. Donna Faisal MONO # 0.3 103/ul Normal 0.3-0.8 [facility] Comment on above: Performed By: #### C BC ####[facility] Jqheohoqdc8688 [place] [address]Dr. Donna Malone Monocytes/100 WBC (Bld) 4.1 % Normal 1.7-12.0 [facility] Comment on above: Performed By: #### C BC ####[facility] Vkohdtbwjr2248 [place] [address]Dr. Donna Malone NEUT # 6.3 103/ul Normal 1.4-6.5 [facility] Comment on above: Performed By: #### C BC ####[facility] Mckdqfcsst3452 [place] [address]Dr. Donna Malone Neutrophils/100 WBC (Bld) 78.3 % Critically high 43.0-75.0 [facility] Comment on above: Performed By: #### C BC ####[facility] Hsdxffbijz1002 [place] [address]Dr. Donna Malone Platelet mean volume (Bld) [Entitic vol] 11.3 fL Normal 9.5-13.5 [facility] Comment on above: Performed By: #### C BC ####[facility] Abokceqleb3863 [place] [address]Dr. Donna Malone PLT 271 103/ul Normal 150-450 [facility] Comment on above: Performed By: #### C BC ####[facility] Fsgfefkfep5327 [place] [address]Dr. Donna Malone RBC 4.88 106/ul Normal 4.70-6.10 [facility] Comment on above: Performed By: #### C BC ####[facility] Umktrtitej4941 [place] [address]Dr. Donna Malone WBC 8.0 103/ul Normal 4.0-11.0 [facility] Comment on above: Performed By: #### C BC ####[facility] Yrjjwcvvvz8767 [place] [id number]. Donna Malone ER URINE PROFILEon 3 Bilirubin Ql (U) Negative Normal NEGATIVE [facility] Comment on above: Performed By: #### E RUR ####[facility] Zhvnyfcxaj9876 [place] [address]Dr. Donna Malone Clarity (U) CLEAR Normal CLEAR [facility] Comment on above: Performed By: #### E RUR ####[facility] Bpxqynvmed[address] [place], [place] [address]Dr. Donna Malone Color (U) YELLOW Normal YELLOW [facility] Comment on above: Performed By: #### E RUR ####[facility] Ewwroqtfon25[address] [place], [place] [address]Dr. Donna Malone ERUAHD A micrscopic examina tion will be performed if indicated. Normal [facility] Comment on above: Performed By: #### E RUR ####[facility] Wllbnlcaur[address] [place], [place] [address]Dr. Donna Malone Glucose Ql (U) 100 mg/dl Abnormal NEGATIVE [facility] Comment on above: Performed By: #### E RUR ####[facility] Uzqskqizkw4[address] [place], [place] [address]Dr. Donna Malone Hemoglobin Ql (U) Negative Normal NEGATIVE [facility] Comment on above: Performed By: #### E RUR ####[facility] Knagfifpyg8[address] [place], [place] [address]Dr. Donna Malone Ketones Ql (U) TRACE Abnormal NEGATIVE [facility] Comment on above: Performed By: #### E RUR ####[facility] Ozdjkygvze[address] [place], [place] [address]Dr. Donna Malone LEUKOCYTES Negative Normal NEGATIVE [facility] Comment on above: Performed By: #### E RUR ####[facility] Vromfkwmgf[address] [place], [place] [address]Dr. Donna Malone Nitrite Ql (U) Negative Normal NEGATIVE [facility] Comment on above: Performed By: #### E RUR ####[facility] Kbqzxvsbus[address] [place], [place] [address]Dr. Donna Malone pH (U) 6.0 [pH] Normal 5-9 [facility] Comment on above: Performed By: #### E RUR ####[facility] Ygubcchyst[address] [place], [place] [address]Dr. Donna Malone SPEC GRAVITY >=1.030 Abnormal 1.005-<=1. 025 [facility] Comment on above: Performed By: #### E RUR ####[facility] Ipiiyassfn[address] [place], [place] [address]Dr. Donna Malone UA PROTEIN Negative Normal NEGATIVE/ TRACE [facility] Comment on above: Performed By: #### E RUR ####[facility] Peteenvzqu97[address] [place], [place] [address]Dr. Donna Malone UR MICRO IND NOT INDICATED Normal [facility] Comment on above: Performed By: #### E RUR ####[facility] Opcmokpjen[address] [place], [place] [address]Dr. Donna Malone Urobilinogen Qn (U) 0.2 {Jermain'U}/dL Normal 0.2 - 1. 0 [facility] Comment on above: Performed By: #### E RUR ####[facility] Mfhysevrxs[address] [place], [place] [address]Dr. Donna Malone PROF CHEM 8 (BAS METB)on Anion gap [Moles/Vol] 16.4 mmol/L Normal [facility] Comment on above: Performed By: #### B MP ####[facility] Smpldqudiu[address] [place], [place] [address]Dr. Donna Malone Calcium [Mass/Vol] 9.4 mg/dL Normal 8.5-10.1 [facility] Comment on above: Performed By: #### B MP ####[facility] Kafydqjtrz8[address] [place], [place] [address]Dr. Donna Malone Chloride [Moles/Vol] 103 mmol/L Normal 98-107 [facility] Comment on above: Performed By: #### B MP ####[facility] Xjbbvyvwrx9[address] [place], [place] [address]Dr. Donna Malone CO2 [Moles/Vol] 23.7 mmol/L Normal 21.0-32.0 [facility] Comment on above: Performed By: #### B MP ####[facility] Jvkfwdqtuc8716 [place] [address]Dr. Rubyyvan Faisal Creatinine [Mass/Vol] 1.12 mg/dL Normal 0.70-1.30 [facility] Comment on above: Performed By: #### B MP ####[facility] Mlyauqlekt6391 [place] [address]Dr. Rubyyvan Faisal EGFR-AF LUXEMBOURGER >60 Normal >=60 [facility] Comment on above: Performed By: #### B MP ####[facility] S[address]pptv[address] [place], [place] [address]Dr. Rubyyvan Faisal EGFR-NON AF LUXEMBOURGER >60 Normal >=60 [facility] Comment on above: Performed By: #### B MP ####[facility] [address]zvydzsxyv6[address] [place], [place] [address]Dr. Donna Malone Glucose [Mass/Vol] 170 mg/dL Critically high 74-106 T [facility] Comment on above: Performed By: #### B MP ####[facility] Imkgpwyhvi[address] [place], [place] [address]Dr. Donna Malone Potassium [Moles/Vol] 4.1 mmol/L Normal 3.5-5.1 [facility] Comment on above: Performed By: #### B MP ####[facility] Rcxlqbgtwt0[address] [place], [place] [address]Dr. Donna Malone Sodium [Moles/Vol] 139 mmol/L Normal 136-145 [facility] Comment on above: Performed By: #### B MP ####[facility] Kdztazcqmx[address] [place], [place] [address]Dr. Donna Malone Urea nitrogen [Mass/Vol] 9.0 mg/dL Normal 7.0-18.0 [facility] Comment on above: Performed By: #### B MP ####[facility] Hfgryqyvlt54[address] [place], [place] [address]Dr. Donna Malone Urea nitrogen/Creatinine [Mass ratio] 8.0 mg/mg Normal [facility] Comment on above: Performed By: #### B MP ####[facility] Ubwrkidqqj3[address] [place], [place] [address]Dr. Donna Malone ACETONE SERUMon 08-10-2022 ACETONE Negative Normal NEGATIVE [facility] Comment on above: Performed By: #### A CETON ####[facility] Uuekcfobiu9585 [place] [address]Dr. Donna Malone CBC AUTO DIFFon 08-10-2022 BASO # 0.1 103/ul Normal 0.0-0.1 [facility] Comment on above: Performed By: #### C BC ####[facility] [address]rjyjtiqo[address] [place], [place] [address]Dr. Donna Malone Basophils/100 WBC (Bld) 0.7 % Normal 0.2-2.0 [facility] Comment on above: Performed By: #### C BC ####[facility] Hvdlejvqrb96[address] [place], [place] [address]Dr. Donna Malone EO # 0.2 103/ul Normal 0.0-0.7 [facility] Comment on above: Performed By: #### C BC ####[facility] Iwkawdnfyw[address] [place], [place] [address]Dr. Donna Malone Eosinophils/100 WBC (Bld) 2.0 % Normal 0.9-7.0 [facility] Comment on above: Performed By: #### C BC ####[facility] Zeiksqcnjb[address] [place], [place] [address]Dr. Donna Malone Erythrocyte distribution width (RBC) [Ratio] 14.3 % Normal 11.0-15.0 [facility] Comment on above: Performed By: #### C BC ####[facility] Zifefcgbtf[address] [place], [place] [address]Dr. Donna Malone Hematocrit (Bld) [Volume fraction] 37.3 % Critically low 42.0-54.0 [facility] Comment on above: Performed By: #### C BC ####[facility] Xabahywlbw[address] [place], [place] [address]Dr. Donna Malone Hemoglobin (Bld) [Mass/Vol] 12.1 g/dL Critically low 14.0-18.0 [facility] Comment on above: Performed By: #### C BC ####[facility] [address]vyskgyujd[address] [place], [place] [address]DrElizabeth Malone IG # 0.03 10e3/ul Normal 0.00-0.03 [facility] Comment on above: Performed By: #### C BC ####[facility] Mecjpesllq9291 [place] [address]DrElizabeth Malone IG % 0.4 % Normal 0.0-0.5 [facility] Comment on above: Performed By: #### C BC ####[facility] Xolumajtjz1224 [place] [address]DrElizabeth Malone LYMPH # 1.3 103/ul Normal 1.2-3.8 [facility] Comment on above: Performed By: #### C BC ####[facility] Dmleyjuxja7773 [place] [address]DrElizabeth Malone Lymphocytes/100 WBC (Bld) 18.3 % Critically low 20.5-60.0 [facility] Comment on above: Performed By: #### C BC ####[facility] Mpmtjjjmji9996 [place] [address]DrElizabeth Malone MANUAL DIFF REQ NO Normal [facility] Comment on above: Performed By: #### C BC ####[facility] Umqwcnfhzi8634 [place] [address]DrElizabeth Maloen MCH (RBC) [Entitic mass] 30.1 pg Normal 25.9-34.0 [facility] Comment on above: Performed By: #### C BC ####[facility] [address] [place] [address]DrElizabeth Malone MCHC (RBC) [Mass/Vol] 32.4 g/dL Normal 29.9-35.2 [facility] Comment on above: Performed By: #### C BC ####[facility] [address] [place] [address]DrElizabeth Malone MCV (RBC) [Entitic vol] 92.8 fL Normal 80.0-94.0 [facility] Comment on above: Performed By: #### C BC ####[facility] [address] [place] [address]DrElizabeth Malone MONO # 0.6 103/ul Normal 0.3-0.8 [facility] Comment on above: Performed By: #### C BC ####[facility] [address] [place] [id number] Malone Monocytes/100 WBC (Bld) 7.6 % Normal 1.7-12.0 [facility] Comment on above: Performed By: #### C BC ####[facility] [address] [place] [id number] Malone NEUT # 5.2 103/ul Normal 1.4-6.5 [facility] Comment on above: Performed By: #### C BC ####[facility] [address] [place] [address]DrElizabeth Malone Neutrophils/100 WBC (Bld) 71.0 % Normal 43.0-75.0 [facility] Comment on above: Performed By: #### C BC ####[facility] [address] [place], [place] [address]Dr. Donna Malone Platelet mean volume (Bld) [Entitic vol] 11.6 fL Normal 9.5-13.5 [facility] Comment on above: Performed By: #### C BC ####[facility] [address] [place], [place] [address]Dr. Donna Malone PLT 237 103/ul Normal 150-450 [facility] Comment on above: Performed By: #### C BC ####[facility] [address] [place], [place] [id number] Donna Malone RBC 4.02 106/ul Critically low 4.70-6.10 [facility] Comment on above: Performed By: #### C BC ####[facility] [address] [place], [place] [id number] Donna Malone WBC 7.3 103/ul Normal 4.0-11.0 [facility] Comment on above: Performed By: #### C BC ####[facility] [address] [place], [place] [address]DrElizabeth Donna Malone Covid-19 PCR (CVDTBH)on 12-0 2-2022 SARS-CoV-2 (COVID-19) RNA JOSÉ MIGUEL+probe Ql (Unsp spec) Not detected Normal NOT DETECTED [facility] Comment on above: Result Comment: When [...] for this test is supported by the [employer] Member of Health and Human Service's declaration that [...] be used). Performed By: #### C VDTBH ####[facility] [address] [place], [place] [address]DrElizabeth Malone LACTATE/LACTIC ACIDon 2021 Lactate [Moles/Vol] 1.3 mmol/L Normal 0.4-1.9 [facility] Comment on above: Performed By: #### L ACT ####[facility] [address] [place], [place] [address]DrElizabeth Malone PROF 14(COMP METB)on 022 Albumin [Mass/Vol] 2.9 g/dL Critically low 3.4-5.0 [facility] Comment on above: Performed By: #### C MARTI, HSTROPN ####[facility] [address] [place], [place] [address]DrElizabeth Malone Albumin/Globulin [Mass ratio] 0.7 {ratio} Normal [facility] Comment on above: Performed By: #### C MARTI, HSTROPN ####[facility] [address] [place], [place] [address]DrElizabeth Malone ALP [Catalytic activity/Vol] 45 U/L Critically low 46-116 [facility] Comment on above: Performed By: #### C MARTI HSTROPN ####[facility] [address] [place] [address]Dr. Donna Malone ALT [Catalytic activity/Vol] 12 U/L Critically low 16-63 [facility] Comment on above: Performed By: #### C MARTI HSTROPN ####[facility] [address] [place] [address]Dr. Donna Malone Anion gap [Moles/Vol] 10.9 mmol/L Normal Th [facility] Comment on above: Performed By: #### C MARTI HSTROPN ####[facility] [address] [place], [place] [address]Dr. Donna Malone AST [Catalytic activity/Vol] 10 U/L Critically low 15-37 [facility] Comment on above: Performed By: #### C MARTI HSTROPN ####[facility] [address] [place], [place] [address]Dr. Donna Malone Bilirubin [Mass/Vol] 0.3 mg/dL Normal 0.2-1.0 [facility] Comment on above: Performed By: #### C MARTI HSTROPN ####[facility] [address] [place], [place] [address]Dr. Donna Malone Calcium [Mass/Vol] 8.9 mg/dL Normal 8.5-10.1 [facility] Comment on above: Performed By: #### C MARTI HSTROPN ####[facility] [address] [place], [place] [address]Dr. Donna Malone Chloride [Moles/Vol] 106 mmol/L Normal 98-107 [facility] Comment on above: Performed By: #### C MARTI HSTROPN ####[facility] [address] [place] [address]Dr. Rubyyvan Malone CO2 [Moles/Vol] 29.4 mmol/L Normal 21.0-32.0 [facility] Comment on above: Performed By: #### C MARTI HSTROPN ####[facility] [address] [place] [id number]. Donna Malone Creatinine [Mass/Vol] 1.15 mg/dL Normal 0.70-1.30 [facility] Comment on above: Performed By: #### C MP, HSTROPN ####[facility] [address] [place] [id number]. Donna Malone EGFR-AF LUXEMBOURGER >60 Normal >=60 [facility] Comment on above: Performed By: #### C MP, HSTROPN ####[facility] [address] [place] [id number]. Donna Malone EGFR-NON AF LUXEMBOURGER >60 Normal >=60 [facility] Comment on above: Performed By: #### C MP, HSTROPN ####[facility] [address] [place] [address]Dr. Donna Malone Globulin (S) [Mass/Vol] 4.2 g/dL Normal [facility] Comment on above: Performed By: #### C MP, HSTROPN ####[facility] [address] [place] [address]Dr. Donna Malone Glucose [Mass/Vol] 116 mg/dL Critically high 74-106 [facility] Comment on above: Performed By: #### C MP, HSTROPN ####[facility] [address] [place] [id number]. Donna Malone Potassium [Moles/Vol] 4.3 mmol/L Normal 3.5-5.1 [facility] Comment on above: Performed By: #### C MP, HSTROPN ####[facility] [address] [place] [id number]. Donna Malone Protein [Mass/Vol] 7.1 g/dL Normal 6.4-8.2 [facility] Comment on above: Performed By: #### C MP, HSTROPN ####[facility] [address] [place] [address]Dr. Donna Malone Sodium [Moles/Vol] 142 mmol/L Normal 136-145 [facility] Comment on above: Performed By: #### C MARTI, HSTROPN ####[facility] [address] [place] [id number]. Donna Malone Urea nitrogen [Mass/Vol] 9.0 mg/dL Normal 7.0-18.0 [facility] Comment on above: Performed By: #### C MARTI, HSTROPN ####[facility] [address] [place] [id number]. Donna Faisal Urea nitrogen/Creatinine [Mass ratio] 7.8 mg/mg Normal [facility] Comment on above: Performed By: #### C MARTI, HSTROPN ####[facility] [address] [place] [address]Dr. Donna Malone TROPONIN, HIGH SENSITIVITYon 08-10-2022 HSTROP 9.1 pg/mL Normal 4.0-76.1 [facility] Comment on above: Result Comment: CUT- OFF POINTS HAVE BEEN ESTABLISHED BASED ON THE FOURTH UNIVERSAL DEFINITIONS OF MYOCARDIALINFARCTION. THE UPPER REFERENCE LIMIT (URL) OF TROPONIN, DEFINED THE 99TH PERCENTILE OFcTnI DISTRIBUTION IN A REFERENCE POPULATION, HAS BEEN CONFIRMED THE DECISION THRESHOLDFOR GA DIAGNOSIS. Performed By: #### C MARTI, HSTROPN ####[facility] [address] [place] [id number]. Donna Malone XR KNEE RT 4V or >on 022 XR KNEE RT 4V or > Normal [facility] CT HEAD WO CONon 08-05-2022 CT HEAD WO CON Normal [facility] CT CSPINE WO CONon 2 CT CSPINE WO CON Normal [facility] CT FACIAL BONES WO CONon CT FACIAL BONES WO CON Normal Th e [facility] CT LSPINE WO CONon 2 CT LSPINE WO CON Normal [facility] Glucose Glucometer (BldC) [M ass/Vol]Ordered By: Sang Bauer on 07-20-2022 Glucose [Mass/Vol] 139 mg/dL [facility] Comment on above: Random Glucose Refer ence Range is dependent on time and content of last meal. Glucose of more than 200 mg/dL in a nonstressed, ambulatory subject supports the diagnosis of Diabetes Mellitus. No Panel InformationOrdered By: Sang Bauer on 07-20-2022 Bedside Glucose Comment Glu2: cleaned meter [facility] Cholesterol [Mass/volume] in Serum or PlasmaOrdered By: Sang Bauer on 07-18-2022 Cholesterol [Mass/Vol] 136 mg/dL 140-200 [facility] Comment on above: Chol less than 200 m g/dl low riskChol 201-239 mg/dl borderline riskChol 240 mg/dl and greater high risk Cholesterol in LDL Calc [Mas s/Vol]Ordered By: Sang Bauer on 07-18-2022 Cholesterol in LDL [Mass/Vol] 81 mg/dL 0-100 [facility] Comment on above: LDL ATP III CLASSIFI CATIONLDL less than 100 mg/dL OptimalLDL 100-129 mg/dL Near or above optimalLDL 130-159 mg/dL Borderline highLDL 160-189 mg/dL HighLDL greater than 189 mg/dL Very high Cholesterol in VLDL Calc [Ma ss/Vol]Ordered By: Sang Bauer on 07-18-2022 Cholesterol in VLDL [Mass/Vol] 17 mg/dL [facility] Serum or plasma high density lipoprotein (HDL) cholesterol measurementOrdered By: Sang Bauer on 07-18-2022 Cholesterol in HDL [Mass/Vol] 38 mg/dL 29-71 [facility] Comment on above: HDL CHOL ATP-III CLA SSIFICATION Cardiovascular RiskHDL > or equal to 60 mg/dL LOWHDL < 40 mg/dL HIGH Serum or plasma total choles terol/high density lipoprotein (HDL) cholesterol mass ratOrdered By: Sang Bauer on 07-18-2022 Cholesterol.total/Chol esterol in HDL [Mass ratio] 3.6 {ratio} <5.0 [facility] Triglyceride [Mass/volume] i n Serum or PlasmaOrdered By: Sang Bauer on 07-18-2022 Triglyceride [Mass/Vol] 85 mg/dL 35-149 [facility] Comment on above: TRIG ATP III [...] aPTT Coag (PPP) [Time] 35.8 s 25.1-36.5 [facility] Albumin [Mass/volume] in Ser um or PlasmaOrdered By: Gayathri Leal on 07-17-2022 Albumin [Mass/Vol] 3.1 g/dL 3.2-5.5 [facility] Amphetamine Screen Ql (U)Ord ered By: Gayathri Leal on 07-17-2022 Amphetamines Ql (U) Negative Negative [facility] Automated erythrocytes count in urine sediment (number/area)Ordered By: Gayathri Leal on 07-17-2022 RBC Auto (Urine sed) [#/Area] 3-4 [HPF] 0-4 [facility] Automated leukocytes count i n urine sediment (number/area)Ordered By: Gayathri Leal on 07-17-2022 WBC Auto (Urine sed) [#/Area] 1-2 [HPF] 0-4 [facility] Barbiturates [Presence] in U rineOrdered By: Gayathri Leal on 07-17-2022 Barbiturates Ql (U) Negative Negative [facility] Basophils Auto (Bld) [#/Vol] Ordered By: Gayathri Leal on 07-17-2022 Basophils (Bld) [#/Vol] 0.1 10*3/uL 0.0-0.2 [facility] Basophils/100 WBC Auto (Bld) Ordered By: Gayathri Leal on 07-17-2022 Basophils/100 WBC (Bld) 1.0 % . [facility] Benzodiazepines [Presence] i n UrineOrdered By: Gayathri Leal on 07-17-2022 Benzodiazepines Ql (U) Positive Negative [facility] Bilirubin Test strip Ql (U)O rdered By: Gayathri Leal on 07-17-2022 Bilirubin Ql (U) Negative Negative [facility] COVID CepheidOrdered By: Olya shahriar Leal on 07-17-2022 SARS-CoV-2 (COVID-19) Ab IA Ql Negative Negative [facility] Comment on above: This is a duplicate [employer] Xpert Xpress CoV-2/Flu/RSV Plus RNA by RT-PCR result to be used for statistical tracking purpose only. SARS-CoV-2 (COVID-19) RNA JOSÉ MIGUEL+probe Ql (Unsp spec) [facility] Cannabinoids [Presence] in U rine by Screen methodOrdered By: Gayathri Leal on 07-17-2022 Cannabinoids Screen Ql (U) Negative Negative [facility] Comment on above: These are unconfirme d results and should not be used for legal purposes. Drug Cut-Off Concentration: AMPH 1000 ng/mL EWA 200 ng/mL JOHN 200 ng/mL COCM 300 ng/mL OP 300 ng/mL PCP 25 ng/mL THC 20 ng/mL Color Auto (U)Ordered By: Dung Leal on 07-17-2022 Color (U) Yellow Yellow [facility] Creatine kinase [Enzymatic a ctivity/volume] in Serum or PlasmaOrdered By: Gayathri Leal on 07-17-2022 CK [Catalytic activity/Vol] 137 U/L 22-269 [facility] Creatinine and Glomerular fi ltration rate.predicted panel (S/P/Bld)Ordered By: Gayathri Leal on 07-17-2022 Creatinine [Mass/Vol] 1.06 mg/dL 0.64-1.27 [facility] Direct bilirubin measurement Ordered By: Gayathri Leal on 07-17-2022 Bilirubin.direct [Mass/Vol] mg/dL 0.0-0.4 [facility] Eosinophils Auto (Bld) [#/Vo l]Ordered By: Gayathri Leal on 07-17-2022 Eosinophils (Bld) [#/Vol] 0.1 10*3/uL 0.0-0.45 [facility] Eosinophils/100 WBC Auto (Bl d)Ordered By: Gayathri Leal on 07-17-2022 Eosinophils/100 WBC (Bld) 0.7 % . [facility] Erythrocyte distribution wid th Auto (RBC) [Ratio]Ordered By: Gayathri Leal on 07-17-2022 Erythrocyte distribution width (RBC) [Ratio] 15.8 % 12.0-14.8 [facility] Estimated glomerular filtrat ion rate (GFR) non- AmericanOrdered By: Gayathri Leal on 07-17-2022 GFR/1.73 sq M.predicted among non-blacks MDRD (S/P/Bld) [Vol rate/Area] > 60 mL/Min [facility] Globulin Calc (S) [Mass/Vol] Ordered By: Gayathri Leal on 07-17-2022 Globulin (S) [Mass/Vol] 3.0 g/dL [facility] Glucose mean value [Mass/vol ume] in Blood Estimated from glycated hemoglobinOrdered By: Sang Bauer on 07-17-2022 Average glucose Estimated from glycated hemoglobin (Bld) [Mass/Vol] 114 mg/dL [facility] Hematocrit Auto (Bld) [Volum e fraction]Ordered By: Gayathri Leal on 07-17-2022 Hematocrit (Bld) [Volume fraction] 37.3 % 38.8-50.0 [facility] Hemoglobin A1c percentageOrd ered By: Sang Bauer on 07-17-2022 HbA1c (Bld) [Mass fraction] 5.6 % 4.3-5.6 [facility] Comment on above: Increased risk for d iabetes: 5.7 - 6.4diabetes: >6.4glycemic control for adults with diabetes: <7.0 Hemoglobin [Mass/volume] in BloodOrdered By: Gayathri Leal on 07-17-2022 Hemoglobin (Bld) [Mass/Vol] 12.3 g/dL 13.0-17.0 [facility] Ketones Auto test strip (U) [Mass/Vol]Ordered By: Gayathri Leal on 07-17-2022 Ketones (U) [Mass/Vol] 2+ Negative Fi [facility] Laboratory - Chemistry and C hemistry - challengeOrdered By: Gayathri Leal on 07-17-2022 Natriuretic peptide B (Bld) [Mass/Vol] 116.0 pg/mL 5-100 [facility] Laboratory - CoagulationOrde red By: Gayathri Leal on 07-17-2022 PT Coag (PPP) [Time] 12.5 s 9.0-12.9 [facility] Laboratory - Drug toxicology Ordered By: Gayathri Leal on 07-17-2022 Opiates Ql (U) Negative Negative [facility] Laboratory - Hematology and Cell countsOrdered By: Gayathri Leal on 07-17-2022 Nucleated RBC/100 WBC (Bld) [Ratio] 0.1 % 0-0.5 [facility] - UrinalysisOrder ed By: Gayathri Leal on 07-17-2022 Hyaline casts LM Ql (Urine sed) None seen [LPF] 0-8 [facility] Leukocytes [#/volume] in Blo od by Automated countOrdered By: Gayathri Leal on 07-17-2022 WBC (Bld) [#/Vol] 7.8 10*3/uL 4.5-11.0 [facility] Lymphocytes Auto (Bld) [#/Vo l]Ordered By: Gayathri Leal on 07-17-2022 Lymphocytes (Bld) [#/Vol] 2.3 10*3/uL 1.00-4.8 [facility] Lymphocytes/100 WBC Auto (Bl d)Ordered By: Gayathri Leal on 07-17-2022 Lymphocytes/100 WBC (Bld) 29.5 % . [facility] MCH Auto (RBC) [Entitic mass ]Ordered By: Gayathri Leal on 07-17-2022 MCH (RBC) [Entitic mass] 30.2 pg 27.5-35.2 [facility] MCHC Auto (RBC) [Mass/Vol]Or dered By: Gayathri Leal on 07-17-2022 MCHC (RBC) [Mass/Vol] 33.1 g/dL 32.5-35.6 [facility] MCV Auto (RBC) [Entitic vol] Ordered By: Gayathri Leal on 07-17-2022 MCV (RBC) [Entitic vol] 91.5 fL 83.5-101 [facility] Monocyte %Ordered By: Zeinab Leal on 07-17-2022 Monocyte % 20 umol/L [facility] Monocytes Auto (Bld) [#/Vol] Ordered By: Gayathri Leal on 07-17-2022 Monocytes (Bld) [#/Vol] 0.4 10*3/uL 0.0-0.8 [facility] Monocytes/100 WBC Auto (Bld) Ordered By: Gayathri Leal on 07-17-2022 Monocytes/100 WBC (Bld) 5.4 % . [facility] Neutrophils Auto (Bld) [#/Vo l]Ordered By: Gayathri Leal on 07-17-2022 Neutrophils (Bld) [#/Vol] 4.9 10*3/uL 1.8-7.7 [facility] Neutrophils/100 WBC Auto (Bl d)Ordered By: Gayathri Leal on 07-17-2022 Neutrophils/100 WBC (Bld) 63.4 % . [facility] Nitrite Test strip Ql (U)Ord ered By: Gayathri Leal on 07-17-2022 Nitrite Ql (U) Negative Negative [facility] No Panel InformationOrdered By: Gayathri Leal on 07-17-2022 Estimated GFR () > 60 mL/Min [facility] Comment on above: GFR estimated refere nce range: According to KDOQI guidelines, <60 ml/min/1.73m2 is sufficient to diagnose a patient with chronic kidney disease. Pharmacy Creatinine Clearance (Chem N/A [facility] Phencyclidine Screen Ql (U)O rdered By: Gayathri Leal on 07-17-2022 Phencyclidine Ql (U) Negative Negative [facility] Platelet mean volume Auto (B ld) [Entitic vol]Ordered By: Gayathri Leal on 07-17-2022 Platelet mean volume (Bld) [Entitic vol] 10.2 fL 6.6-10.1 [facility] Platelet poor plasma interna tional normalized ratio (INR) by coagulation assay (relatOrdered By: Gayathri Leal on 07-17-2022 INR Coag (PPP) [Relative time] 1.1 {INR} [facility] Comment on above: INR Therapeutic Rang [...] 07-17-2022 Platelets (Bld) [#/Vol] 239 10*3/uL 150-450 [facility] Protein Auto test strip (U) [Mass/Vol]Ordered By: Gayathri Leal on 07-17-2022 Protein (U) [Mass/Vol] Negative Negative [facility] Protein [Mass/volume] in Ser um or PlasmaOrdered By: Gayathri Leal on 07-17-2022 Protein [Mass/Vol] 6.1 g/dL 6.1-7.9 [facility] RBC Auto (Bld) [#/Vol]Ordere d By: Gayathri Leal on 07-17-2022 RBC (Bld) [#/Vol] 4.07 10*6/uL 3.90-5.60 [facility] Serum or plasma alanine del valle otransferase measurement without P-5'-P (enzymatic activiOrdered By: Gayathri Leal on 07-17-2022 ALT No additional P-5'-P [Catalytic activity/Vol] 13 U/L 10-60 [facility] Serum or plasma albumin/glob ulin mass ratioOrdered By: Gaaythri Leal on 07-17-2022 Albumin/Globulin [Mass ratio] 1.0 {ratio} [facility] Serum or plasma alkaline gail sphatase measurement (enzymatic activity/volume)Ordered By: Gayathri Leal on 07-17-2022 ALP [Catalytic activity/Vol] 37 U/L 32-92 [facility] Serum or plasma anion gap de terminationOrdered By: Gayathri Leal on 07-17-2022 Anion gap [Moles/Vol] 12.1 mmol/L 6.0-15.0 [facility] Serum or plasma aspartate am inotransferase measurement (enzymatic activity/volume)Ordered By: Gayathri Leal on 07-17-2022 AST [Catalytic activity/Vol] 15 U/L 10-42 [facility] Serum or plasma calcium deepti urement (mass/volume)Ordered By: Gayathri Leal on 07-17-2022 Calcium [Mass/Vol] 8.8 mg/dL 8.2-10.2 [facility] Serum or plasma chloride deepak surement (moles/volume)Ordered By: Gayathri Leal on 07-17-2022 Chloride [Moles/Vol] 108 mmol/L 95-114 [facility] Serum or plasma creatine kin ase MB (CKMB)/total creatine kinase (CK) ratio by calculaOrdered By: Gayathri Leal on 07-17-2022 CK.MB Calc [Catalytic fraction] 2.6 % 0.00-2.50 [facility] Serum or plasma creatine kin ase MB measurement (mass/volume)Ordered By: Gayathri Leal on 07-17-2022 CK.MB [Mass/Vol] 3.6 ng/mL 0.6-6.3 [facility] Serum or plasma glucose deepti urement (mass/volume)Ordered By: Gayathri Leal on 07-17-2022 Glucose [Mass/Vol] 91 mg/dL 70-100 [facility] Comment on above: ADA recommended refe rence rangeRandom Glucose Reference Range is dependent on time and content of last meal. Glucose of more than 200 mg/dL in a nonstressed, ambulatory subject supports the diagnosis of Diabetes Mellitus. Serum or plasma non-glucuron idated bilirubin measurement (mass/volume)Ordered By: Gayathri Leal on 07-17-2022 Bilirubin.indirect [Mass/Vol] [facility] Comment on above: Test not performed Serum or plasma potassium me asurement (moles/volume)Ordered By: Gayathri Leal on 07-17-2022 Potassium [Moles/Vol] 4.0 mmol/L 3.5-5.1 [facility] Serum or plasma sodium measu rement (moles/volume)Ordered By: Gayathri Leal on 07-17-2022 Sodium [Moles/Vol] 139 mmol/L 136-146 [facility] Serum or plasma total biliru bin measurement (mass/volume)Ordered By: Gayathri Leal on 07-17-2022 Bilirubin [Mass/Vol] 0.8 mg/dL 0.3-1.2 [facility] Serum or plasma total carbon dioxide measurement (moles/volume)Ordered By: Gayathri Leal on 07-17-2022 CO2 [Moles/Vol] 22.9 mmol/L 22.0-30.0 [facility] Serum or plasma urea nitroge n measurement (mass/volume)Ordered By: Gayathri Leal on 07-17-2022 Urea nitrogen [Mass/Vol] 12 mg/dL 9-23 [facility] Specific gravity Auto test s trip (U) [Rel density]Ordered By: Gayathri Leal on 07-17-2022 Specific gravity (U) [Rel density] 1.024 1.001-1.03 0 [facility] Squamous epithelial cells de tection in urine sediment by light microscopyOrdered By: Gayathri Leal on 07-17-2022 Epithelial cells.squamous LM Ql (Urine sed) None seen [HPF] 0-2 [facility] Troponin I.cardiac [Mass/vol ume] in Serum or Plasma by High sensitivity methodOrdered By: Sang Bauer on 07-17-2022 Troponin I.cardiac High sensitivity method [Mass/Vol] 7 pg/mL 0-20 [facility] Urine bacteria detection by automated methodOrdered By: Gayathri Leal on 07-17-2022 Bacteria Auto Ql (U) None seen None Seen [facility] Urine clarity by refractomet ry automatedOrdered By: Gayathri Leal on 07-17-2022 Clarity Refractometry automated (U) Clear Clear [facility] Urine cocaine detectionOrder ed By: Gayathri Leal on 07-17-2022 Cocaine Ql (U) Negative Negative [facility] Urine glucose measurement by automated test strip (mass/volume)Ordered By: Gayathri Leal on 07-17-2022 Glucose Auto test strip (U) [Mass/Vol] Normal mg/dL Normal [facility] Urine hemoglobin detection b y automated test stripOrdered By: Gayathri Leal on 07-17-2022 Hemoglobin Auto test strip Ql (U) Negative Negative [facility] Urine leukocyte esterase det ection by automated test stripOrdered By: Gayathri Dietznelda on 07-17-2022 Leukocyte esterase Auto test strip Ql (U) 1+ Negative [facility] Urobilinogen Auto test strip (U) [Mass/Vol]Ordered By: Gayathri Dickinsonjayne on 07-17-2022 Urobilinogen (U) [Mass/Vol] Normal mg/dL Normal [facility] pH Auto test strip (U)Ordere d By: Gayathri Dickinsonjayne on 07-17-2022 pH (U) 6.5 [pH] 5.0-9.0 [facility] AMMONIAon 07-16-2022 Ammonia (P) [Moles/Vol] 44 umol/L Critically high [facility] Comment on above: Performed By: #### A MM ####[facility] [address] [place], [place] [address]Dr. Donna Malone BNPon 07-16-2022 Natriuretic peptide B (Bld) [Mass/Vol] 236.0 pg/mL Normal <=900.0 [facility] Comment on above: Performed By: #### C MP, BNP ####[facility] [address] [place], [place] [address]Dr. Donna Malone CBC AUTO DIFFon 07-16-2022 BASO # 0.1 103/ul Normal 0.0-0.1 [facility] Comment on above: Performed By: #### C BC ####[facility] [address] [place], [place] [address]Dr. Donna Malone Basophils/100 WBC (Bld) 1.0 % Normal 0.2-2.0 [facility] Comment on above: Performed By: #### C BC ####[facility] [address] [place], [place] [address]Dr. Donna Malone EO # 0.2 103/ul Normal 0.0-0.7 [facility] Comment on above: Performed By: #### C BC ####[facility] [address] [place], [place] [address]Dr. Donna Malone Eosinophils/100 WBC (Bld) 3.3 % Normal 0.9-7.0 [facility] [place] [facility] Comment on above: Performed By: #### C BC ####[facility] [place] [facility] [address] [place] [address]Dr. Donna Malone Erythrocyte distribution width (RBC) [Ratio] 15.1 % Critically high 11.0-15.0 [facility] [place] [facility] Comment on above: Performed By: #### C BC ####[facility] [place] [facility] [address] [place], [place] [address]Dr. Donna Malone Hematocrit (Bld) [Volume fraction] 36.1 % Critically low 42.0-54.0 [facility] [place] [facility] Comment on above: Performed By: #### C BC ####[facility] [place] [facility] [address]qjkztglf[address] [place], [place] [address]Dr. Donna Malone Hemoglobin (Bld) [Mass/Vol] 12.0 g/dL Critically low 14.0-18.0 [facility] [place] [facility] Comment on above: Performed By: #### C BC ####[facility] [place] [facility] Nbzcoptjuy[address] [place], [place] [address]Dr. Donna Malone IG # 0.01 10e3/ul Normal 0.00-0.03 [facility] [place] [facility] Comment on above: Performed By: #### C BC ####[facility] [place] [facility] Rhqztapcvw[address] [place], [place] [address]Dr. Donna Malone IG % 0.2 % Normal 0.0-0.5 [facility] [place] [facility] Comment on above: Performed By: #### C BC ####[facility] [place] [facility] Ychspndjnl[address] [place], [place] [address]Dr. Donna Malone LYMPH # 2.5 103/ul Normal 1.2-3.8 [facility] [place] [facility] Comment on above: Performed By: #### C BC ####[facility] [place] [facility] Sixdpvsqay[address] [place], [place] [address]Dr. Donna Malone Lymphocytes/100 WBC (Bld) 41.1 % Normal 20.5-60.0 [facility] [place] [facility] Comment on above: Performed By: #### C BC ####[facility] [place] [facility] [address] [place] [address]Dr. Rubyyvan Malone MANUAL DIFF REQ NO Normal [facility] [place] [facility] Comment on above: Performed By: #### C BC ####[facility] [place] [facility] [address] [place] [address]Dr. Donna Faisal MCH (RBC) [Entitic mass] 30.6 pg Normal 25.9-34.0 [facility] [place] [facility] Comment on above: Performed By: #### C BC ####[facility] [place] [facility] T[address]vsekls[address] [place] [address]Dr. Donna Faisal MCHC (RBC) [Mass/Vol] 33.2 g/dL Normal 29.9-35.2 [facility] [place] [facility] Comment on above: Performed By: #### C BC ####[facility] [place] [facility] S[address]feje[address] [place] [address]Dr. Rubyyvan Malone MCV (RBC) [Entitic vol] 92.1 fL Normal 80.0-94.0 [facility] [place] [facility] Comment on above: Performed By: #### C BC ####[facility] [place] [facility] [address]fxm[address] [place], [place] [address]Dr. Donna Malone MONO # 0.5 103/ul Normal 0.3-0.8 [facility] [place] [facility] Comment on above: Performed By: #### C BC ####[facility] [place] [facility] Xydcmsoaeb[address] [place], [place] [address]Dr. Donna Malone Monocytes/100 WBC (Bld) 7.4 % Normal 1.7-12.0 [facility] [place] [facility] Comment on above: Performed By: #### C BC ####[facility] [place] [facility] Solgyabiqg47[address] [place] [address]Dr. Donna Malone NEUT # 2.9 103/ul Normal 1.4-6.5 [facility] [place] [facility] Comment on above: Performed By: #### C BC ####[facility] [place] [facility] Eqtvjglkul[address] [place], [place] [address]Dr. Donna Malone Neutrophils/100 WBC (Bld) 47.0 % Normal 43.0-75.0 [facility] [place] [facility] Comment on above: Performed By: #### C BC ####[facility] [place] [facility] Znuggkuaqt5[address] [place] [address]Dr. Rubyyvan Faisal Platelet mean volume (Bld) [Entitic vol] 11.4 fL Normal 9.5-13.5 [facility] Comment on above: Performed By: #### C BC ####[facility] [place] [facility] [address]qcj[address]hnga[address] [place] [address]Dr. Rubyyvan Faisal PLT 206 103/ul Normal 150-450 [facility] [place] [facility] Comment on above: Performed By: #### C BC ####[facility] [place] [facility] Aykuvesyms[address] [place] [address]Dr. Rubyyvan Faisal RBC 3.92 106/ul Critically low 4.70-6.10 [facility] Comment on above: Performed By: #### C BC ####[facility] [place] [facility] Vhylk[address] [place], [place] [address]Dr. Donna Malone WBC 6.1 103/ul Normal 4.0-11.0 [facility] Comment on above: Performed By: #### C BC ####[facility] [place] [facility] Xqmdclulnm[address] [place], [place] [address]Dr. Donna Malone ECHO LIMITED STUDYon 022 ECHO LIMITED STUDY Normal [facility] [place] [facility] MRI BRAIN WO CONon 2 MRI BRAIN WO CON Normal [facility] [place] [facility] PROF 14(COMP METB)on 022 Albumin [Mass/Vol] 2.8 g/dL Critically low 3.4-5.0 [facility] Comment on above: Performed By: #### C MP, BNP ####[facility] [place] [facility] Jhqlitiysa[address] [place], [place] [address]Dr. Donna Malone Albumin/Globulin [Mass ratio] 0.9 {ratio} Normal [facility] [place] [facility] Comment on above: Performed By: #### C MP, BNP ####[facility] [place] [facility] W[address]aryrbzk[address] [place] [address]Dr. Donna Malone ALP [Catalytic activity/Vol] 36 U/L Critically low 46-116 [facility] Comment on above: Performed By: #### C MP, BNP ####[facility] [place] [facility] Ehupnpufpq4[address] [place] [address]Dr. Donna Malone ALT [Catalytic activity/Vol] 13 U/L Critically low 16-63 [facility] Comment on above: Performed By: #### C MP, BNP ####[facility] [place] [facility] Dzyqtlxsao[address] [place], [place] [address]Dr. Donna Malone Anion gap [Moles/Vol] 10.4 mmol/L Normal [facility] Comment on above: Performed By: #### C MP, BNP ####[facility] [place] [facility] Mmdzqzhvhz[address] [place], [place] [address]Dr. Donna Malone AST [Catalytic activity/Vol] 13 U/L Critically low 15-37 [facility] Comment on above: Performed By: #### C MP, BNP ####[facility] [place] [facility] Upyffsnrvt[address] [place], [place] [address]Dr. Donna Malone Bilirubin [Mass/Vol] 0.3 mg/dL Normal 0.2-1.0 [facility] Comment on above: Performed By: #### C MP, BNP ####[facility] [place] [facility] Pffmkymwnd47[address] [place], [place] [address]Dr. Donna Malone Calcium [Mass/Vol] 8.2 mg/dL Critically low 8.5-10.1 [facility] Comment on above: Performed By: #### C MP, BNP ####[facility] [place] [facility] Sabrvzhcxo[address] [place], [place] [address]Dr. Donna Malone Chloride [Moles/Vol] 108 mmol/L Critically high 98-107 [facility] Comment on above: Performed By: #### C MP, BNP ####[facility] [place] [facility] Sjsmuseepq[address] [place], [place] [address]Dr. Donna Malone CO2 [Moles/Vol] 25.5 mmol/L Normal 21.0-32.0 [facility] Comment on above: Performed By: #### C MP, BNP ####[facility] [place] [facility] Kfadqctmtv[address] [place], [place] [address]Dr. Donna Malone Creatinine [Mass/Vol] 0.92 mg/dL Normal 0.70-1.30 [facility] Comment on above: Performed By: #### C MP, BNP ####[facility] [place] [facility] Jp[address]utfahk[address] [place] [address]Dr. Donna Malone EGFR-AF LUXEMBOURGER >60 Normal >=60 [facility] Comment on above: Performed By: #### C MP, BNP ####[facility] [place] [facility] E[address]ulyyui[address] [place] [address]Dr. Donna Malone EGFR-NON AF LUXEMBOURGER >60 Normal >=60 [facility] Comment on above: Performed By: #### C MP, BNP ####[facility] [place] [facility] Troubbkzwa[address] [place], [place] [address]Dr. Donna Malone Globulin (S) [Mass/Vol] 3.2 g/dL Normal [facility] Comment on above: Performed By: #### C MP, BNP ####[facility] [place] [facility] Gqzfpmefka[address] [place], [place] [address]Dr. Donna Malone Glucose [Mass/Vol] 76 mg/dL Normal 74-106 [facility] Comment on above: Performed By: #### C MP, BNP ####[facility] [place] [facility] Hbpmbmgwod[address] [place], [place] [address]Dr. Donna Malone Potassium [Moles/Vol] 3.9 mmol/L Normal 3.5-5.1 [facility] Comment on above: Performed By: #### C MP, BNP ####[facility] [place] [facility] Cnbfcnnprt[address] [place], [place] [address]Dr. Donna Malone Protein [Mass/Vol] 6.0 g/dL Critically low 6.4-8.2 [facility] Comment on above: Performed By: #### C MP, BNP ####[facility] [place] [facility] Nnudktafqb[address] [place], [place] [address]Dr. Donna Malone Sodium [Moles/Vol] 140 mmol/L Normal 136-145 [facility] [place] [facility] Comment on above: Performed By: #### C MP, BNP ####[facility] [place] [facility] [address]pgjgxxzj[address] [place], [place] [address]Dr. Donna Malone Urea nitrogen [Mass/Vol] 12.0 mg/dL Normal 7.0-18.0 [facility] Comment on above: Performed By: #### C MP, BNP ####[facility] [place] [facility] Eqdtxaltzs[address] [place], [place] [address]Dr. Donna Malone Urea nitrogen/Creatinine [Mass ratio] 13.0 mg/mg Normal [facility] Comment on above: Performed By: #### C MP, BNP ####[facility] [place] [facility] [address]zszh[address] [place] [address]Dr. Donna Malone VIT B12 AND FOLATEon 022 Cobalamin (Vitamin B12) [Mass/Vol] 532.0 pg/mL Normal 193.0-986. 0 [facility] [place] [facility] Comment on above: Performed By: #### B 12FOL ####[facility] [place] [facility] [address]pceh[address] [place] [address]Dr. Donna Malone FOLATE 13.60 ng/mL Normal 8.60-58.90 [facility] [place] [facility] Comment on above: Performed By: #### B 12FOL ####[facility] [place] [facility] Bilanplssi[address] [place] [address]Dr. Donna Malone AMMONIAon 07-15-2022 Ammonia (P) [Moles/Vol] 23 umol/L Normal [facility] [place] [facility] Comment on above: Performed By: #### A MM ####[facility] [place] [facility] Abfxxxotor[address] [place], [place] [address]Dr. Donna Malone BLOOD GASES BTYon 07-15-2022 02 MODE ROOM AIR Normal [facility] Comment on above: Performed By: #### A BG ####[facility] [place] [facility] Ebuxeffupo[address] [place] [address]Dr. Donna Malone ALLENS TEST Positive Normal [facility] Comment on above: Performed By: #### A BG ####[facility] [place] [facility] Ybsekmrfnw[address] [place] [address]Dr. Donna Malone Base excess Calc (Bld) [Moles/Vol] -1.3000 mmol/L Normal -2.0-2.0 [facility] [place] [facility] Comment on above: Performed By: #### A BG ####[facility] [place] [facility] [address]pvnmk[address] [place] [address]Dr. Donna Malone BIPAP PRESSURE Normal [facility] Comment on above: Performed By: #### A BG ####[facility] [place] [facility] Ucgdrfuqxl4[address] [place] [address]Dr. Donna Malone CPAP [facility] Comment on above: Performed By: #### A BG ####[facility] [place] [facility] Ujiiycrbef[address] [place] [address]Dr. Donna Malone FIO2 [facility] Comment on above: Performed By: #### A BG ####[facility] [place] [facility] Efkjjkituq0446 [place] [address]Dr. Donna Malone HCO3 (Bld) [Moles/Vol] 22.7 mmol/L Normal 22.0-26.0 [facility] Comment on above: Performed By: #### A BG ####[facility] [place] [facility] [address]yjmkafcgf[address] [place], [place] [address]Dr. Donna Malone LPM [facility] Comment on above: Performed By: #### A BG ####[facility] [place] [facility] Raogtsdmft[address] [place], [place] [address]Dr. Donna Malone MINUTE VOLUME Normal [facility] Comment on above: Performed By: #### A BG ####[facility] [place] [facility] [address]vakqcuu[address] [place], [place] [address]Dr. Donna Malone Oxygen (Bld) [Partial pressure] 77.7 mm[Hg] Critically low 80.0-100.0 [facility] Comment on above: Performed By: #### A BG ####[facility] [place] [facility] Ambzzemvgs[address] [place], [place] [address]Dr. Donna Malone Oxygen saturation in Blood 95.9 % Normal 95.0-100.0 [facility] Comment on above: Performed By: #### A BG ####[facility] [place] [facility] Emschgbgjb[address] [place], [place] [address]Dr. Donna Malone PCO2 33.0 mmHg Critically low 35.0-45.0 [facility] Comment on above: Performed By: #### A BG ####[facility] [place] [facility] Jwwnyojqiy8[address] [place], [place] [address]Dr. Donna Malone PEEP [facility] Comment on above: Performed By: #### A BG ####[facility] [place] [facility] Xbfnefgdhp[address] [place], [place] [address]Dr. Donna Malone pH (Bld) 7.446 [pH] Normal 7.350-7.45 0 [facility] Comment on above: Performed By: #### A BG ####[facility] [place] [facility] Ar[address]wtni[address] [place] [address]Dr. Donna Malone PIP [facility] Comment on above: Performed By: #### A BG ####[facility] [place] [facility] Mkiuaaryig[address] [place] [address]Dr. Donna Malone PS [facility] Comment on above: Performed By: #### A BG ####[facility] [place] [facility] Mlodklgjfz8[address] [place] [address]Dr. Donna Malone PUNCTURE SITE RB [facility] Comment on above: Performed By: #### A BG ####[facility] [place] [facility] Lywcfiuzfq[address] [place], [place] [address]Dr. Donna Malone RATE [facility] Comment on above: Performed By: #### A BG ####[facility] [place] [facility] Afhflhtbxi[address] [place], [place] [address]Dr. Donna Malone VENT MODE [facility] Comment on above: Performed By: #### A BG ####[facility] [place] [facility] Fvdarngthe8[address] [place], [place] [address]Dr. Donna Malone VT [facility] Comment on above: Performed By: #### A BG ####[facility] [place] [facility] Gdkajqzkgl[address] [place], [place] [address]Dr. Donna Malone BNPon 07-15-2022 Natriuretic peptide B (Bld) [Mass/Vol] 111.0 pg/mL Normal <=900.0 [facility] Comment on above: Performed By: #### B HOGSHEAD ROLLER, CMP, CMADM ####[facility] [place] [facility] Onymegqiji[address] [place], [place] [address]Dr. Donna Malone CARDIAC MJ 3-6on 2 CK [Catalytic activity/Vol] 102 U/L Normal 39-308 [facility] Comment on above: Performed By: #### C MREP ####[facility] [place] [facility] [address]jwaszcpgx[address] [place], [place] [address]Dr. Donna Malone CK.MB [Mass/Vol] 3.67 ng/mL Critically high <=3.60 [facility] Comment on above: Performed By: #### C MREP ####[facility] [place] [facility] Umgiregfsy[address] [place] [address]Dr. Donna Malone HSTROP 13.1 pg/mL Normal 4.0-76.1 [facility] Comment on above: Result Comment: CUT- OFF POINTS HAVE BEEN ESTABLISHED BASED ON THE FOURTH UNIVERSAL DEFINITIONS OF MYOCARDIALINFARCTION. THE UPPER REFERENCE LIMIT (URL) OF TROPONIN, DEFINED THE 99TH PERCENTILE OFcTnI DISTRIBUTION IN A REFERENCE POPULATION, HAS BEEN CONFIRMED THE DECISION THRESHOLDFOR GA DIAGNOSIS. Performed By: #### C MREP ####[facility] [place] [facility] Uqqxijqpws[address] [place] [address]Dr. Donna Malone CK [Catalytic activity/Vol] 89 U/L Normal 39-308 [facility] Comment on above: Performed By: #### C MREP ####[facility] [place] [facility] Clzualpbcm25[address] [place] [address]Dr. Donna Malone CK.MB [Mass/Vol] 3.37 ng/mL Normal <=3.60 [facility] Comment on above: Performed By: #### C MREP ####[facility] [place] [facility] Wzzlegyplp[address] [place], [place] [address]Dr. Donna Malone HSTROP 11.2 pg/mL Normal 4.0-76.1 [facility] Comment on above: Result Comment: CUT- OFF POINTS HAVE BEEN ESTABLISHED BASED ON THE FOURTH UNIVERSAL DEFINITIONS OF MYOCARDIALINFARCTION. THE UPPER REFERENCE LIMIT (URL) OF TROPONIN, DEFINED THE 99TH PERCENTILE OFcTnI DISTRIBUTION IN A REFERENCE POPULATION, HAS BEEN CONFIRMED THE DECISION THRESHOLDFOR GA DIAGNOSIS. Performed By: #### C MREP ####[facility] [place] [facility] [address]zxwdi[address] [place] [address]Dr. Donna Malone CARDIAC MJ ADMITon 022 CK [Catalytic activity/Vol] 76 U/L Normal 39-308 [facility] [place] [facility] Comment on above: Performed By: #### B HOGSHEAD ROLLER, CMP, CMADM ####[facility] [place] [facility] Dbubcrhoqd27[address] [place] [address]Dr. Donna Malone CK.MB [Mass/Vol] 2.59 ng/mL Normal <=3.60 [facility] [place] [facility] Comment on above: Performed By: #### B HOGSHEAD ROLLER, CMP, CMADM ####[facility] [place] [facility] Ksveqizjvg[address] [place] [address]Dr. Donna Malone HSTROP 10.1 pg/mL Normal 4.0-76.1 [facility] [place] [facility] Comment on above: Result Comment: CUT- OFF POINTS HAVE BEEN ESTABLISHED BASED ON THE FOURTH UNIVERSAL DEFINITIONS OF MYOCARDIALINFARCTION. THE UPPER REFERENCE LIMIT (URL) OF TROPONIN, DEFINED THE 99TH PERCENTILE OFcTnI DISTRIBUTION IN A REFERENCE POPULATION, HAS BEEN CONFIRMED THE DECISION THRESHOLDFOR GA DIAGNOSIS. Performed By: #### B HOGSHEAD ROLLER, CMP, CMADM ####[facility] [place] [facility] Zxjjhhzkcq37[address] [place] [address]Dr. Donna Faisal BINDU 109 ng/mL Critically high 16-96 [facility] [place] [facility] Comment on above: Performed By: #### B HOGSHEAD ROLLER, CMP, CMADM ####[facility] [place] [facility] Vxpgmlyatj[address] [place] [address]Dr. Donna Faisal CBC AUTO DIFFon 07-15-2022 BASO # 0.0 103/ul Normal 0.0-0.1 [facility] [place] [facility] Comment on above: Performed By: #### C BC ####[facility] [place] [facility] Ewaojmppgg25[address] [place] [address]Dr. Rubyyvan Malone Basophils/100 WBC (Bld) 0.7 % Normal 0.2-2.0 [facility] [place] [facility] Comment on above: Performed By: #### C BC ####[facility] [place] [facility] Tyaldclafh[address] [place] [address]Dr. Donna Faisal EO # 0.1 103/ul Normal 0.0-0.7 [facility] [place] [facility] Comment on above: Performed By: #### C BC ####[facility] [place] [facility] Svlqdpyskj4686 [place] [address]Dr. Donna Faisal Eosinophils/100 WBC (Bld) 2.3 % Normal 0.9-7.0 [facility] [place] [facility] Comment on above: Performed By: #### C BC ####[facility] [place] [facility] Kh[address]ykhxqt3[address] [place] [address]Dr. Donna Malone Erythrocyte distribution width (RBC) [Ratio] 15.2 % Critically high 11.0-15.0 [facility] [place] [facility] Comment on above: Performed By: #### C BC ####[facility] [place] [facility] Btffksdumz[address] [place] [address]Dr. Donna Malone Hematocrit (Bld) [Volume fraction] 34.8 % Critically low 42.0-54.0 [facility] [place] [facility] Comment on above: Performed By: #### C BC ####[facility] [place] [facility] [address]rkftxp[address] [place], [place] [address]Dr. Donna Malone Hemoglobin (Bld) [Mass/Vol] 11.4 g/dL Critically low 14.0-18.0 [facility] Comment on above: Performed By: #### C BC ####[facility] [place] [facility] Vzz[address]azsima[address] [place], [place] [address]Dr. Rubyyvan Malone IG # 0.01 10e3/ul Normal 0.00-0.03 [facility] [place] [facility] Comment on above: Performed By: #### C BC ####[facility] [place] [facility] Tlrshwmqwq[address] [place], [place] [address]Dr. Donna Malone IG % 0.2 % Normal 0.0-0.5 [facility] [place] [facility] Comment on above: Performed By: #### C BC ####[facility] [place] [facility] X[address]ufpbamyz[address] [place], [place] [address]Dr. Donna Malone LYMPH # 1.6 103/ul Normal 1.2-3.8 [facility] [place] [facility] Comment on above: Performed By: #### C BC ####[facility] [place] [facility] Txznfkbtko[address] [place], [place] [address]Dr. Donna Faisal Lymphocytes/100 WBC (Bld) 26.4 % Normal 20.5-60.0 [facility] [place] [facility] Comment on above: Performed By: #### C BC ####[facility] [place] [facility] [address]iyofobmq[address] [place], [place] [address]Dr. Donna Malone MANUAL DIFF REQ NO Normal [facility] [place] [facility] Comment on above: Performed By: #### C BC ####[facility] [place] [facility] [address]cs[address] [place] [id number]. Donna Malone MCH (RBC) [Entitic mass] 30.7 pg Normal 25.9-34.0 [facility] [place] [facility] Comment on above: Performed By: #### C BC ####[facility] [place] [facility] Fojxzpcuti64[address] [place] [address]Dr. Donna Malone MCHC (RBC) [Mass/Vol] 32.8 g/dL Normal 29.9-35.2 [facility] [place] [facility] Comment on above: Performed By: #### C BC ####[facility] [place] [facility] [address]duy[address]hhw[address] [place], [place] [address]Dr. Donna Malone MCV (RBC) [Entitic vol] 93.8 fL Normal 80.0-94.0 [facility] [place] [facility] Comment on above: Performed By: #### C BC ####[facility] [place] [facility] [address]jplhud[address] [place], [place] [address]Dr. Donna Faisal MONO # 0.5 103/ul Normal 0.3-0.8 [facility] [place] [facility] Comment on above: Performed By: #### C BC ####[facility] [place] [facility] Yvkzkrztdh[address] [place], [place] [address]Dr. Donna Faisal Monocytes/100 WBC (Bld) 7.5 % Normal 1.7-12.0 [facility] [place] [facility] Comment on above: Performed By: #### C BC ####[facility] [place] [facility] [address]bixchpi[address] [place], [place] [address]Dr. Donna Malone NEUT # 3.8 103/ul Normal 1.4-6.5 [facility] [place] [facility] Comment on above: Performed By: #### C BC ####[facility] [place] [facility] E[address]htpsbtv[address] [place], [place] [address]Dr. Donna Faisal Neutrophils/100 WBC (Bld) 62.9 % Normal 43.0-75.0 [facility] [place] [facility] Comment on above: Performed By: #### C BC ####[facility] [place] [facility] [address]ymhsxvglb[address] [place], [place] [address]Dr. Donna Faisal Platelet mean volume (Bld) [Entitic vol] 11.7 fL Normal 9.5-13.5 [facility] [place] [facility] Comment on above: Performed By: #### C BC ####[facility] [place] [facility] [address]jb[address] [place], [place] [address]Nf. Donna Malone PLT 220 103/ul Normal 150-450 [facility] [place] [facility] Comment on above: Performed By: #### C BC ####[facility] [place] [facility] [address]evx[address]xnhzu[address] [place], [place] [address]Cv. Donna Malone RBC 3.71 106/ul Critically low 4.70-6.10 [facility] [place] [facility] Comment on above: Performed By: #### C BC ####[facility] [place] [facility] Ls[address]swmwpgj39[address] [place], [place] [address]Ld. Donna Malone WBC 6.0 103/ul Normal 4.0-11.0 [facility] [place] [facility] Comment on above: Performed By: #### C BC ####[facility] [place] [facility] Cvqwwbvkiy44[address] [place], [place] [address]Ap. Donna Malone CT CSPINE WO CONon 2 CT CSPINE WO CON Normal [facility] [place] [facility] CT HEAD WO CONon 07-15-2022 CT HEAD WO CON Normal [facility] [place] [facility] CTA NECK WO W CONon 07-15-20 CTA NECK WO W CON Normal [facility] [place] [facility] CULTURE URINEon 07-15-2022 CULTURE URINE Culture Observations : LIGHT GROWTH OF MIXED SKIN MICHAEL. NO POTENTIAL PATHOGENS SEEN. Normal [facility] [place] [facility] Comment on above: Performed By: #### U RCX ####[facility] [place] [facility] [address]ef[address]wi37[address] [place], [place] [address]Up. Donna Malone Covid-19 PCR (CVDTB)on SARS-CoV-2 (COVID-19) RNA JOSÉ MIGUEL+probe Ql (Unsp spec) Not detected Normal NOT DETECTED [facility] [place] [facility] Comment on above: Result Comment: When [...] for this test is supported by the [place] of Health and Human Service's declaration that [...] be used). Performed By: #### C VDTBH ####[facility] [place] [facility] [address]bzjhvtaep4[address] [place] [address]Dr. Donna Malone DEPAKENE/VALPROICon 07-15-20 22 DEPAKENE 53.6 ug/ml Normal 50.0-100.0 [facility] [place] [facility] Comment on above: Performed By: #### V ALP ####[facility] [place] [facility] [address]vx[address] [place], [place] [address]Dr. Donna Malone DRUG SCREEN RAPID (URINE)on 07-15-2022 AMP Negative Normal NEGATIVE [facility] [place] [facility] Comment on above: Performed By: #### Calvin TABOR, ERUR ####[facility] [place] [facility] [address]elikbqcgt[address] [place], [place] [address]Dr. Donna Malone BAR Negative Normal NEGATIVE [facility] [place] [facility] Comment on above: Performed By: #### Calvin TABOR, ERUR ####[facility] [place] [facility] [address]yqbiccrbo[address] [place], [place] [address]Dr. Donna Malone BUP Negative Normal NEGATIVE [facility] [place] [facility] Comment on above: Performed By: #### D SHARONA, ERUR ####[facility] [place] [facility] [address]wy[address] [place], [place] [address]Dr. Donna Malone BZO Positive Abnormal NEGATIVE [facility] [place] [facility] Comment on above: Performed By: #### D SHARONA, ERUR ####[facility] [place] [facility] [address]eqcveuw[address] [place] [address]Dr. Donna Malone EVONNE Negative Normal NEGATIVE [facility] [place] [facility] Comment on above: Performed By: #### D SHARONA, ERUR ####[facility] [place] [facility] Dexbbrouar[address] [place] [address]Dr. Donna Malone CUT-OFFS SEE BELOW Normal [facility] [place] [facility] Comment on above: Result Comment: AMP [...] ng/mL Performed By: #### Calvin TABOR, ERUR ####[facility] [place] [facility] [address] [place], [place] [address]Dr. [facility] DRUG CUT HEADER DRUG CLASS TEST SYST EM CUT-OFF CONCENTRATIONS ARE FOLLOWS: Normal [facility] [place] [facility] Comment on above: Performed By: #### Calvin TABOR, ERUR ####[facility] [place] [facility] [address] [place] [address]Dr. Rubyyvan Malone mAMP Negative Normal NEGATIVE [facility] [place] [facility] Comment on above: Performed By: #### Calvin TABOR, ERUR ####[facility] [place] [facility] [address] [place], [place] [address]Dr. Donna Amlone MTD Negative Normal NEGATIVE [facility] [place] [facility] Comment on above: Performed By: #### Calvin HARRYD, ERUR ####[facility] [place] [facility] Cshnszpzzf[address] [place], [place] [address]Dr. [facility] OPI Negative Normal NEGATIVE [facility] [place] [facility] Comment on above: Performed By: #### Calvin HARRYD, ERUR ####[facility] [place] [facility] [address]ug[address] [place] [address]Dr. [facility] OXY Negative Normal NEGATIVE [facility] [place] [facility] Comment on above: Performed By: #### Calvin TABOR, ERUR ####[facility] [place] [facility] [address]xpbin[address] [place] [address]Dr. yvan [facility] PCP Negative Normal NEGATIVE [facility] [place] [facility] Comment on above: Performed By: #### Calvin TABOR, ERUR ####[facility] [place] [facility] [address]pns[address] [place] [address]Dr. Donna Malone PPX Negative Normal NEGATIVE [facility] [place] [facility] Comment on above: Performed By: #### Calvin TABOR, ERUR ####[facility] [place] [facility] Dvitvmecfz[address] [place], [place] [address]Dr. Donna Malone TCA Positive Abnormal NEGATIVE [facility] [place] [facility] Comment on above: Performed By: #### Calvin TABOR, ERUR ####[facility] [place] [facility] Ywrbbdzjrn[address] [place], [place] [address]Dr. Donna Faisal THC Negative Normal NEGATIVE [facility] Comment on above: Performed By: #### Calvin TABOR, ERUR ####[facility] [place] [facility] Uduhjek[address]ji[address] [place], [place] [address]Dr. Donna Malone ER URINE PROFILEon 2 Bilirubin Ql (U) Negative Normal NEGATIVE [facility] Comment on above: Performed By: #### Calvin TABOR, ERUR ####[facility] [place] [facility] Sbbscre[address] [place], [place] [address]Dr. Donna Malone Clarity (U) CLEAR Normal CLEAR [facility] Comment on above: Performed By: #### Calvin TABOR, ERUR ####[facility] [place] [facility] Qlfgqounli[address] [place], [place] [address]Dr. Donna Malone Color (U) YELLOW Normal YELLOW [facility] [place] [facility] Comment on above: Performed By: #### Calvin TABOR, ERUR ####[facility] [place] [facility] [address]ffgze[address] [place], [place] [address]Dr. Donna Malone ERUAHD A micrscopic examina tion will be performed if indicated. Normal [facility] [place] [facility] Comment on above: Performed By: #### Clavin TABOR, ERUR ####[facility] [place] [facility] Rfdncfngvs[address] [place], [place] [address]Dr. Donna Malone Glucose Ql (U) Negative Normal NEGATIVE [facility] [place] [facility] Comment on above: Performed By: #### Calvin TABOR, ERUR ####[facility] [place] [facility] Sjqbpoxqxq[address] [place], [place] [address]Dr. Donna Malone Hemoglobin Ql (U) Negative Normal NEGATIVE [facility] Comment on above: Performed By: #### Calvin TABOR, ERUR ####[facility] [place] [facility] [address] [place] [address]Dr. Donna Malone Ketones Ql (U) 15 mg/dl Abnormal NEGATIVE [facility] [place] [facility] Comment on above: Performed By: #### Calvin TABOR ERUR ####[facility] [place] [facility] Psnvl[address]khs[address] [place] [address]Dr. Donna Malone LEUKOCYTES Negative Normal NEGATIVE [facility] [place] [facility] Comment on above: Performed By: #### Calvin TABOR, ERUR ####[facility] [place] [facility] Xviizthdav[address] [place] [address]Dr. Donna Malone Nitrite Ql (U) Negative Normal NEGATIVE [facility] [place] [facility] Comment on above: Performed By: #### Calvin TABOR ERUR ####[facility] [place] [facility] Rdjsyaiecs[address] [place] [address]Dr. Donna Malone pH (U) 6.0 [pH] Normal 5-9 [facility] [place] [facility] Comment on above: Performed By: #### Calvin TABOR ERUR ####[facility] [place] [facility] Prpb[address]uj[address] [place], [place] [address]Dr. Donna Malone SPEC GRAVITY >=1.030 Abnormal 1.005-<=1. 025 [facility] [place] [facility] Comment on above: Performed By: #### WESLY LAUR ####[facility] [place] [facility] Nhgvemiajl6[address] [place], [place] [address]Dr. Donna Malone UA PROTEIN TRACE Normal NEGATIVE/ TRACE [facility] [place] [facility] Comment on above: Performed By: #### Calvin TABOR ERUR ####[facility] [place] [facility] Qkrd[address]fqfw[address] [place] [address]Dr. Donna Malone UR MICRO IND NOT INDICATED Normal [facility] [place] [facility] Comment on above: Performed By: #### WESLY LAUR ####[facility] [place] [facility] Louwsnjvwo[address] [place] [address]Dr. Donna Malone Urobilinogen Qn (U) 0.2 {Jermain'U}/dL Normal 0.2 - 1. 0 [facility] [place] [facility] Comment on above: Performed By: #### Calvin TABOR ERUR ####[facility] [place] [facility] [address]uc[address] [place] [address]Dr. Donna Malone ETHANOL (BLD ALC)on 07-15-20 22 ALC NOTE NOTE: 80 mg/dl is th e legal limit for a blood alcohol level Normal [facility] Comment on above: Performed By: #### E TH ####[facility] [place] [facility] P[address]uel[address] [place] [address]Dr. Donna Malone Ethanol [Mass/Vol] mg/dL Normal [facility] Comment on above: Performed By: #### E TH ####[facility] [place] [facility] Zcvadfpfdt8[address] [place] [address]Dr. Donna Malone LACTATE/LACTIC ACIDon 2021 Lactate [Moles/Vol] 1.3 mmol/L Normal 0.4-1.9 [facility] Comment on above: Performed By: #### L ACT ####[facility] [place] [facility] Eeedtybtva[address] [place], [place] [address]Dr. Donna Malone PROF 14(COMP METB)on 022 Albumin [Mass/Vol] 2.9 g/dL Critically low 3.4-5.0 [facility] Comment on above: Performed By: #### B HOGSHEAD ROLLER, CMP, CMADM ####[facility] [place] [facility] Eitvfqvuar[address] [place] [address]Dr. Donna Malone Albumin/Globulin [Mass ratio] 0.9 {ratio} Normal [facility] Comment on above: Performed By: #### B HOGSHEAD ROLLER, CMP, CMADM ####[facility] [place] [facility] Npvmydgkjb28[address] [place] [address]Dr. Donna Malone ALP [Catalytic activity/Vol] 37 U/L Critically low 46-116 [facility] Comment on above: Performed By: #### B HOGSHEAD ROLLER, CMP, CMADM ####[facility] [place] [facility] Stedqdvfqf[address] [place] [address]Dr. Donna Malone ALT [Catalytic activity/Vol] 10 U/L Critically low 16-63 [facility] Comment on above: Performed By: #### B HOGSHEAD ROLLER, CMP, CMADM ####[facility] [place] [facility] Etvemmsfiv4[address] [place] [address]Dr. Donna Malone Anion gap [Moles/Vol] 8.0 mmol/L Normal [facility] Comment on above: Performed By: #### B HOGSHEAD ROLLER, CMP, CMADM ####[facility] [place] [facility] Qijcvwuiag43[address] [place] [address]Dr. Donna Malone AST [Catalytic activity/Vol] 12 U/L Critically low 15-37 [facility] Comment on above: Performed By: #### B HOGSHEAD ROLLER, CMP, CMADM ####[facility] [place] [facility] Dubfulgomr60[address] [place] [address]Dr. Donna Malone Bilirubin [Mass/Vol] 0.3 mg/dL Normal 0.2-1.0 [facility] Comment on above: Performed By: #### B HOGSHEAD ROLLER, CMP, CMADM ####[facility] [place] [facility] Wjvvhnbwbu[address] [place], [place] [address]Dr. Donna Malone Calcium [Mass/Vol] 7.9 mg/dL Critically low 8.5-10.1 [facility] Comment on above: Performed By: #### B HOGSHEAD ROLLER, CMP, CMADM ####[facility] [place] [facility] Lrvsbbuwme34[address] [place] [address]Dr. Dnona Malone Chloride [Moles/Vol] 107 mmol/L Normal 98-107 [facility] [place] [facility] Comment on above: Performed By: #### B HOGSHEAD ROLLER, CMP, CMADM ####[facility] [place] [facility] Nbs[address]qnsthz3[address] [place] [address]Dr. Donna Malone CO2 [Moles/Vol] 27.1 mmol/L Normal 21.0-32.0 [facility] [place] [facility] Comment on above: Performed By: #### B HOGSHEAD ROLLER, CMP, CMADM ####[facility] [place] [facility] Jmdrswvfxn[address] [place] [address]Dr. Donna Malone Creatinine [Mass/Vol] 0.99 mg/dL Normal 0.70-1.30 [facility] Comment on above: Performed By: #### B HOGSHEAD ROLLER, CMP, CMADM ####[facility] [place] [facility] Vspefbtfma[address] [place] [address]Dr. Donna Malone EGFR-AF LUXEMBOURGER >60 Normal >=60 [facility] [place] [facility] Comment on above: Performed By: #### B HOGSHEAD ROLLER, CMP, CMADM ####[facility] [place] [facility] Vchnooanry[address] [place] [address]Dr. Donna Malone EGFR-NON AF LUXEMBOURGER >60 Normal >=60 [facility] Comment on above: Performed By: #### B HOGSHEAD ROLLER, CMP, CMADM ####[facility] [place] [facility] Lzozfscajj[address] [place] [address]Dr. Donna Malone Globulin (S) [Mass/Vol] 3.3 g/dL Normal [facility] Comment on above: Performed By: #### B HOGSHEAD ROLLER, CMP, CMADM ####[facility] [place] [facility] Nuryvqhrpb45[address] [place] [address]Dr. Donna Malone Glucose [Mass/Vol] 101 mg/dL Normal 74-106 [facility] Comment on above: Performed By: #### B HOGSHEAD ROLLER, CMP, CMADM ####[facility] [place] [facility] Chatfbsipw80[address] [place] [address]Dr. Donna Malone Potassium [Moles/Vol] 4.1 mmol/L Normal 3.5-5.1 [facility] Comment on above: Performed By: #### B HOGSHEAD ROLLER, CMP, CMADM ####[facility] [place] [facility] Ucyjwsaaos[address] [place] [address]Dr. Donna Malone Protein [Mass/Vol] 6.2 g/dL Critically low 6.4-8.2 [facility] Comment on above: Performed By: #### B HOGSHEAD ROLLER, CMP, CMADM ####[facility] [place] [facility] Zysemhflkr14[address] [place] [address]Dr. Donna Malone Sodium [Moles/Vol] 138 mmol/L Normal 136-145 [facility] Comment on above: Performed By: #### B HOGSHEAD ROLLER, CMP, CMADM ####[facility] [place] [facility] Eamxojhofg[address] [place] [address]Dr. Donna Malone Urea nitrogen [Mass/Vol] 16.0 mg/dL Normal 7.0-18.0 [facility] Comment on above: Performed By: #### B HOGSHEAD ROLLER, CMP, CMADM ####[facility] [place] [facility] Aeuohqzaik[address] [place] [address]Dr. Donna Malone Urea nitrogen/Creatinine [Mass ratio] 16.2 mg/mg Normal [facility] [place] [facility] Comment on above: Performed By: #### B HOGSHEAD ROLLER, CMP, CMADM ####[facility] [place] [facility] [address] [place] [id number] Malone PROTIMEon 07-15-2022 INR Coag (PPP) [Relative time] 1.06 {INR} Normal [facility] [place] [facility] Comment on above: Performed By: #### P T, PTT ####[facility] [place] [facility] Qcoixbbbxy[address] [place], [place] [address]DrElizabeth Malone INR GUIDELINES SEE BELOW Normal [facility] Comment on above: Result Comment: FLORESITA RED INR: 2.0 - 3.0 CONDITIONS NOT LISTED BELOW 2.5 - 3.5 FOR PROSTHETIC HEART VALVE REPLACEMENT 2.5 - 3.5 RECURRENT THROMBOSIS Performed By: #### P T, PTT ####[facility] [place] [facility] Qgpfjvvldn[address] [place], [place] [address]DrElizabeth Malone PT Coag (PPP) [Time] 11.4 s Normal 9.0-11.6 [facility] Comment on above: Performed By: #### P T, PTT ####[facility] [place] [facility] Kkspqldwbg10[address] [place], [place] [address]DrElizabeth Malone PTTon 07-15-2022 aPTT Coag (Bld) [Time] 30.8 s Normal 22.3-36.2 [facility] Comment on above: Performed By: #### P T, PTT ####[facility] [place] [facility] Foevxbvrws[address] [place], [place] [address]DrElizabeth Malone XR CHEST 1 Von 07-15-2022 XR CHEST 1 V Normal [facility] [place] [facility] CULTURE URINEon 06-24-2022 CULTURE URINE Normal [facility] [place] [facility] Comment on above: Performed By: #### U RCX ####[facility] [place] [facility] Ljqgyudeuu[address] [place], [place] [address]DrElizabeth Malone UA RANDOM W/MICROSCOPICon BACTERIA NONE SEEN Normal NONE SEEN [facility] [place] [facility] Comment on above: Performed By: #### U AMIC ####[facility] [place] [facility] Plbsmxvwvk98[address] [place] [address]Dr. Donna Malone Bilirubin Ql (U) Negative Normal NEGATIVE [facility] [place] [facility] Comment on above: Performed By: #### U AMIC ####[facility] [place] [facility] Cnztdmjepu[address] [place], [place] [address]Dr. Donna Malone CAST NONE SEEN Normal NONE SEEN [facility] [place] [facility] Comment on above: Performed By: #### U AMIC ####[facility] [place] [facility] Uxmcqjbggq[address] [place], [place] [address]Dr. Donna Malone Clarity (U) CLEAR Normal CLEAR [facility] [place] [facility] Comment on above: Performed By: #### U AMIC ####[facility] [place] [facility] Qivzkjqdwt[address] [place], [place] [address]Dr. Donna Malone Color (U) DK. YELLOW Normal YELLOW [facility] [place] [facility] Comment on above: Performed By: #### U AMIC ####[facility] [place] [facility] Tbflnmoyxr[address] [place], [place] [address]Dr. Donna Malone Crystals LM Nom (Urine sed) NONE SEEN Normal NONE SEEN [facility] [place] [facility] Comment on above: Performed By: #### U AMIC ####[facility] [place] [facility] Mmmvogvmwt[address] [place], [place] [address]Dr. Donna Malone Epithelial cells LM Ql (Urine sed) NONE SEEN Normal NONE SEEN /RARE [facility] [place] [facility] Comment on above: Performed By: #### U AMIC ####[facility] [place] [facility] Qdrihhnknw[address] [place], [place] [address]Dr. Donna Malone Glucose Ql (U) 100 mg/dl Abnormal NEGATIVE [facility] [place] [facility] Comment on above: Performed By: #### U AMIC ####[facility] [place] [facility] Wyfkcmhhyf[address] [place], [place] [address]Dr. Donna Malone Hemoglobin Ql (U) Negative Normal NEGATIVE [facility] [place] [facility] Comment on above: Performed By: #### U AMIC ####[facility] [place] [facility] Hpqrunrpya[address] [place], [place] [address]Dr. Donna Malone Ketones Ql (U) TRACE Abnormal NEGATIVE [facility] [place] [facility] Comment on above: Performed By: #### U AMIC ####[facility] [place] [facility] Rvaqumvibe[address] [place], [place] [address]Dr. Donna Malone LEUKOCYTES Negative Normal NEGATIVE [facility] [place] [facility] Comment on above: Performed By: #### U AMIC ####[facility] [place] [facility] Tuojhihysl[address] [place] [address]Dr. Donna Malone MUCOUS SMALL Abnormal NONE SEEN [facility] [place] [facility] Comment on above: Performed By: #### U AMIC ####[facility] [place] [facility] Tquoouxzcg4731 [place] [id number]. Donna Malone Nitrite Ql (U) Negative Normal NEGATIVE [facility] [place] [facility] Comment on above: Performed By: #### U AMIC ####[facility] [place] [facility] Hdvcvcknjm6081 [place] [address]Dr. Donna Malone pH (U) 6.0 [pH] Normal 5-9 [facility] [place] [facility] Comment on above: Performed By: #### U AMIC ####[facility] [place] [facility] Efvijylydx[address] [place], [place] [address]Dr. Donna Malone RBC NONE SEEN Abnormal 0-2 [facility] [place] [facility] Comment on above: Performed By: #### U AMIC ####[facility] [place] [facility] Oxznkofrxz[address] [place], [place] [address]Dr. Donna Malone SPEC GRAVITY 1.030 Abnormal 1.005-<=1. 025 [facility] [place] [facility] Comment on above: Performed By: #### U AMIC ####[facility] [place] [facility] Ihtjsvgbvg[address] [place] [address]Dr. Donna Malone UA PROTEIN Negative Normal NEGATIVE/ TRACE [facility] [place] [facility] Comment on above: Performed By: #### U AMIC ####[facility] [place] [facility] Zexeduzunp[address] [place], [place] [address]Dr. Donna Malone Urobilinogen Qn (U) 0.2 {Jermain'U}/dL Normal 0.2 - 1. 0 [facility] [place] [facility] Comment on above: Performed By: #### U AMIC ####[facility] [place] [facility] Ijxiqnxxaj[address] [place], [place] [address]Dr. Donna Malone WBC 2-5 Abnormal NONE SEEN [facility] [place] [facility] Comment on above: Performed By: #### U AMIC ####[facility] [place] [facility] Oifckscqwu[address] [place], [place] [address]Dr. Donna Malone COMPLIANCE DRUG SCREENon PDF . Normal [facility] Comment on above: Performed By: #### D SDOAL ####[facility] [place] [facility] Fkepmqqjmk7[address] [place], [place] [address]NjDr. Donna Malone Summary FINAL Normal [facility] Comment on above: Result Comment: =====TOXASSURE [...] call . Performed By: #### D SDOALC ####[facility] [place] [facility] Aosxdgdhdj4662 [place], [place] [address]NhElizabeth Malone CBC AUTO DIFFon 05-16-2022 BASO # 0.0 103/ul Normal 0.0-0.1 [facility] [place] [facility] Comment on above: Performed By: #### C BC ####[facility] [place] [facility] Tijqaeidmp4535 [place], [place] [address]OxElizabeth Malone Basophils/100 WBC (Bld) 0.4 % Normal 0.2-2.0 [facility] [place] [facility] Comment on above: Performed By: #### C BC ####[facility] [place] [facility] Zmiouqhvjd20[address] [place], [place] [address]Dr. Donna Malone EO # 0.1 103/ul Normal 0.0-0.7 [facility] [place] [facility] Comment on above: Performed By: #### C BC ####[facility] [place] [facility] Zovqylhbuq[address] [place], [place] [address]Dr. Donna Malone Eosinophils/100 WBC (Bld) 0.9 % Normal 0.9-7.0 [facility] [place] [facility] Comment on above: Performed By: #### C BC ####[facility] [place] [facility] Xtrszjqylf[address] [place], [place] [address]Dr. Donna Malone Erythrocyte distribution width (RBC) [Ratio] 14.9 % Normal 11.0-15.0 [facility] [place] [facility] Comment on above: Performed By: #### C BC ####[facility] [place] [facility] Avakfeyzdh[address] [place], [place] [address]Dr. Donna Malone Hematocrit (Bld) [Volume fraction] 41.0 % Critically low 42.0-54.0 [facility] [place] [facility] Comment on above: Performed By: #### C BC ####[facility] [place] [facility] Apjudmlhgj[address] [place], [place] [address]Dr. Donna Malone Hemoglobin (Bld) [Mass/Vol] 13.3 g/dL Critically low 14.0-18.0 [facility] [place] [facility] Comment on above: Performed By: #### C BC ####[facility] [place] [facility] Stgpgfkqxv[address] [place], [place] [address]Dr. Donna Malone IG # 0.03 10e3/ul Normal 0.00-0.03 [facility] [place] [facility] Comment on above: Performed By: #### C BC ####[facility] [place] [facility] Boijtzitsf[address] [place], [place] [address]Dr. Donna Malone IG % 0.3 % Normal 0.0-0.5 [facility] [place] [facility] Comment on above: Performed By: #### C BC ####[facility] [place] [facility] Tdpegjwzsm[address] [place], [place] [address]Dr. Donna Malone LYMPH # 1.4 103/ul Normal 1.2-3.8 [facility] [place] [facility] Comment on above: Performed By: #### C BC ####[facility] [place] [facility] Frtxwlxspi[address] [place] [address]Dr. Donna Malone Lymphocytes/100 WBC (Bld) 15.3 % Critically low 20.5-60.0 [facility] Comment on above: Performed By: #### C BC ####[facility] [place] [facility] Ulsrervklv[address] [place], [place] [address]Dr. Donna Malone MANUAL DIFF REQ NO Normal [facility] Comment on above: Performed By: #### C BC ####[facility] [place] [facility] Utztaounnh[address] [place], [place] [address]Dr. Donna Malone MCH (RBC) [Entitic mass] 29.4 pg Normal 25.9-34.0 [facility] [place] [facility] Comment on above: Performed By: #### C BC ####[facility] [place] [facility] Oecvraroam[address] [place], [place] [address]Dr. Donna Malone MCHC (RBC) [Mass/Vol] 32.4 g/dL Normal 29.9-35.2 [facility] [place] [facility] Comment on above: Performed By: #### C BC ####[facility] [place] [facility] Oitefxtekc[address] [place], [place] [address]Dr. Donna Malone MCV (RBC) [Entitic vol] 90.5 fL Normal 80.0-94.0 [facility] [place] [facility] Comment on above: Performed By: #### C BC ####[facility] [place] [facility] Ngdwjdxewk[address] [place], [place] [address]Dr. Donna Malone MONO # 0.8 103/ul Normal 0.3-0.8 [facility] [place] [facility] Comment on above: Performed By: #### C BC ####[facility] [place] [facility] Dfosurtidh[address] [place], [place] [address]Dr. Donna Malone Monocytes/100 WBC (Bld) 8.7 % Normal 1.7-12.0 [facility] [place] [facility] Comment on above: Performed By: #### C BC ####[facility] [place] [facility] Qrmoqgxxdw9824[address] [place], [place] [address]Dr. Donna Malone NEUT # 6.9 103/ul Critically high 1.4-6.5 [facility] Comment on above: Performed By: #### C BC ####[facility] [place] [facility] H[address]huazkwrk[address] [place] [address]DrElizabeth Malone Neutrophils/100 WBC (Bld) 74.4 % Normal 43.0-75.0 [facility] Comment on above: Performed By: #### C BC ####[facility] [place] [facility] Ysdfxjmypb4198 [place] [address]DrElizabeth Malone Platelet mean volume (Bld) [Entitic vol] 11.9 fL Normal 9.5-13.5 [facility] Comment on above: Performed By: #### C BC ####[facility] [place] [facility] Lntdgvaqdl[address] [place], [place] [address]DrElizabeth Malone PLT 174 103/ul Normal 150-450 [facility] Comment on above: Performed By: #### C BC ####[facility] [place] [facility] Lxxpwhkucj[address] [place], [place] [address]DrElizabeth Malone RBC 4.53 106/ul Critically low 4.70-6.10 [facility] Comment on above: Performed By: #### C BC ####[facility] [place] [facility] Birbqjqboo[address] [place], [place] [address]DrElizabeth Malone WBC 9.2 103/ul Normal 4.0-11.0 [facility] Comment on above: Performed By: #### C BC ####[facility] [place] [facility] Vdegscabhi[address] [place], [place] [address]DrElizabeth Malone PROF 14(COMP METB)on 022 Albumin [Mass/Vol] 3.0 g/dL Critically low 3.4-5.0 [facility] Comment on above: Performed By: #### C MP ####[facility] [place] [facility] [address]pmmiavprh[address] [place], [place] [address]DrElizabeth Malone Albumin/Globulin [Mass ratio] 0.8 {ratio} Normal [facility] Comment on above: Performed By: #### C MP ####[facility] [place] [facility] Boebpyoqlr[address] [place], [place] [address]DrElizabeth Malone ALP [Catalytic activity/Vol] 39 U/L Critically low 46-116 [facility] [place] [facility] Comment on above: Performed By: #### C MP ####[facility] [place] [facility] Kmgvqdzbif[address] [place] [address]Dr. Donna Malone ALT [Catalytic activity/Vol] 16 U/L Normal 16-63 [facility] Comment on above: Performed By: #### C MP ####[facility] [place] [facility] Fkezrajcrs[address] [place], [place] [address]Dr. Donna Malone Anion gap [Moles/Vol] 10.8 mmol/L Normal Th e [facility] [place] [facility] Comment on above: Performed By: #### C MP ####[facility] [place] [facility] Whuexvdkmd[address] [place], [place] [address]Dr. Donna Malone AST [Catalytic activity/Vol] 9 U/L Critically low 15-37 [facility] Comment on above: Performed By: #### C MP ####[facility] [place] [facility] Ywcyzbmpzo[address] [place], [place] [address]Dr. Donna Malone Bilirubin [Mass/Vol] 0.3 mg/dL Normal 0.2-1.0 [facility] Comment on above: Performed By: #### C MP ####[facility] [place] [facility] [address]vrtbkgojc[address] [place], [place] [address]Dr. Donna Malone Calcium [Mass/Vol] 8.8 mg/dL Normal 8.5-10.1 [facility] [place] [facility] Comment on above: Performed By: #### C MP ####[facility] [place] [facility] Cycykqkksz[address] [place], [place] [address]Dr. Donna Malone Chloride [Moles/Vol] 105 mmol/L Normal 98-107 [facility] [place] [facility] Comment on above: Performed By: #### C MP ####[facility] [place] [facility] Ptnptcrbdi[address] [place], [place] [address]Dr. Donna Malone CO2 [Moles/Vol] 26.7 mmol/L Normal 21.0-32.0 [facility] [place] [facility] Comment on above: Performed By: #### C MP ####[facility] [place] [facility] [address]skjbbgchn[address] [place], [place] [address]Dr. Donna Malone Creatinine [Mass/Vol] 0.97 mg/dL Normal 0.70-1.30 [facility] [place] [facility] Comment on above: Performed By: #### C MP ####[facility] [place] [facility] [address]ozbwea[address] [place] [address]Dr. Donna Malone EGFR-AF LUXEMBOURGER >60 Normal >=60 [facility] [place] [facility] Comment on above: Performed By: #### C MP ####[facility] [place] [facility] Ziozinftjk[address] [place] [address]Dr. Donna Malone EGFR-NON AF LUXEMBOURGER >60 Normal >=60 [facility] [place] [facility] Comment on above: Performed By: #### C MP ####[facility] [place] [facility] Cxfncugfie[address] [place], [place] [address]Dr. Donna Malone Globulin (S) [Mass/Vol] 3.7 g/dL Normal [facility] [place] [facility] Comment on above: Performed By: #### C MP ####[facility] [place] [facility] Zkcjezvurs[address] [place], [place] [address]Dr. Donna Malone Glucose [Mass/Vol] 98 mg/dL Normal 74-106 [facility] [place] [facility] Comment on above: Performed By: #### C MP ####[facility] [place] [facility] Inmfgkwnzh[address] [place], [place] [address]Dr. Donna Faisal Potassium [Moles/Vol] 3.5 mmol/L Normal 3.5-5.1 [facility] [place] [facility] [facility] Comment on above: Performed By: #### C MP ####[facility] Ozszagg[address]pe[address] [place], [place] [address]Dr. Donna Malone Protein [Mass/Vol] 6.7 g/dL Normal 6.4-8.2 [facility] Comment on above: Performed By: #### C MP ####[facility] Dakpgxoufv16[address] [place], [place] [address]Dr. Donna Malone Sodium [Moles/Vol] 139 mmol/L Normal 136-145 [facility] Comment on above: Performed By: #### C MP ####[facility] [address] [place] [address]Dr. Donna Faisal Urea nitrogen [Mass/Vol] 11.0 mg/dL Normal 7.0-18.0 [facility] Comment on above: Performed By: #### C MP ####[facility] Kurlpjhfga[address] [place], [place] [address]Dr. Donna Malone Urea nitrogen/Creatinine [Mass ratio] 11.3 mg/mg Normal [facility] Comment on above: Performed By: #### C MP ####[facility] Dmitvvvugc9[address] [place], [place] [address]Dr. Donna Malone T3, TOTAL (TRIIODOTHYRONINE) on 05-16-2022 T3, TOTAL 86 ng/dL Normal 71-180 [facility] Comment on above: Performed By: #### T 3TOTAL ####[facility] Khumjxaktf8[address] [place], [place] [address]Dr. Donna Malone T4 LABCORPon 05-16-2022 T4 [Mass/Vol] 6.4 ug/dL Normal 4.5-12.0 [facility] Comment on above: Performed By: #### T 4LC ####[facility] Terrxpcxin62[address] [place], [place] [address]Dr. Donna Malone CBC AUTO DIFFon 05-15-2022 BASO # 0.0 103/ul Normal 0.0-0.1 [facility] Comment on above: Performed By: #### C BC ####[facility] Bupukjzswe[address] [place], [place] [address]Dr. Donna Malone Basophils/100 WBC (Bld) 0.3 % Normal 0.2-2.0 [facility] Comment on above: Performed By: #### C BC ####[facility] Nocrdsrvnc[address] [place], [place] [address]Dr. Donna Malone EO # 0.2 103/ul Normal 0.0-0.7 [facility] Comment on above: Performed By: #### C BC ####[facility] Xajptvvdim1928[address] [place], [place] [address]Dr. Donna Malone Eosinophils/100 WBC (Bld) 2.0 % Normal 0.9-7.0 [facility] Comment on above: Performed By: #### C BC ####[facility] Rpfsnmlutm5[address] [place], [place] [address]Dr. Donna Malone Erythrocyte distribution width (RBC) [Ratio] 14.6 % Normal 11.0-15.0 [facility] Comment on above: Performed By: #### C BC ####[facility] Epebatpqtr[address] [place] [address]Dr. Donna Malone Hematocrit (Bld) [Volume fraction] 38.2 % Critically low 42.0-54.0 [facility] Comment on above: Performed By: #### C BC ####[facility] Imcupgcmay8[address] [place], [place] [address]Dr. Donna Malone Hemoglobin (Bld) [Mass/Vol] 12.7 g/dL Critically low 14.0-18.0 [facility] Comment on above: Performed By: #### C BC ####[facility] Tswfnunhxg6601[address] [place], [place] [address]Dr. Rubyyvan Malone IG # 0.04 10e3/ul Critically high 0.00-0.03 [facility] Comment on above: Performed By: #### C BC ####[facility] Dqxszlpdwo2[address] [place], [place] [address]Dr. Rubyyvan Malone IG % 0.4 % Normal 0.0-0.5 [facility] Comment on above: Performed By: #### C BC ####[facility] Kxaxdtcfvb1794[address] [place], [place] [address]Dr. Donna Malone LYMPH # 1.4 103/ul Normal 1.2-3.8 [facility] Comment on above: Performed By: #### C BC ####[facility] Ppmxjbfvho4[address] [place], [place] [address]Dr. Rubyyvan Malone Lymphocytes/100 WBC (Bld) 14.9 % Critically low 20.5-60.0 [facility] Comment on above: Performed By: #### C BC ####[facility] Fpyqayijru350[address] [place], [place] [address]DrElizabeth Rubyyvan Malone MANUAL DIFF REQ NO Normal [facility] Comment on above: Performed By: #### C BC ####[facility] Vcbsveayfg6934[address] [place], [place] [address]DrElizabeth Malone MCH (RBC) [Entitic mass] 30.0 pg Normal 25.9-34.0 [facility] Comment on above: Performed By: #### C BC ####[facility] Isxfxvdskn[address] [place] [address]Dr. Donna Malone MCHC (RBC) [Mass/Vol] 33.2 g/dL Normal 29.9-35.2 [facility] Comment on above: Performed By: #### C BC ####[facility] Rxucmakkoh9[address] [place], [place] [address]Dr. Donna Faisal MCV (RBC) [Entitic vol] 90.3 fL Normal 80.0-94.0 [facility] Comment on above: Performed By: #### C BC ####[facility] Ytvwqqtkkl77[address] [place], [place] [address]Dr. Donna Malone MONO # 0.8 103/ul Normal 0.3-0.8 [facility] Comment on above: Performed By: #### C BC ####[facility] Uhqdodhods[address] [place], [place] [address]Dr. Donna Malone Monocytes/100 WBC (Bld) 8.5 % Normal 1.7-12.0 [facility] Comment on above: Performed By: #### C BC ####[facility] Dwwmuqbysm4[address] [place], [place] [address]Dr. Rubyyvan Faisal NEUT # 6.8 103/ul Critically high 1.4-6.5 [facility] Comment on above: Performed By: #### C BC ####[facility] Aghyqqgoar78[address] [place], [place] [address]Dr. Donna Malone Neutrophils/100 WBC (Bld) 73.9 % Normal 43.0-75.0 [facility] Comment on above: Performed By: #### C BC ####[facility] Lzilbefysi5[address] [place], [place] [address]Dr. Donna Malone Platelet mean volume (Bld) [Entitic vol] 12.0 fL Normal 9.5-13.5 [facility] Comment on above: Performed By: #### C BC ####[facility] Igbwkrdcot[address] [place], [place] [id number]. Donna Malone PLT 154 103/ul Normal 150-450 [facility] Comment on above: Performed By: #### C BC ####[facility] Ivnfyntoki[address] [place] [address]Dr. Rubyyvan Faisal RBC 4.23 106/ul Critically low 4.70-6.10 [facility] Comment on above: Performed By: #### C BC ####[facility] Ahwtqdoirc[address] [place] [address]Dr. Donna Malone WBC 9.2 103/ul Normal 4.0-11.0 [facility] Comment on above: Performed By: #### C BC ####[facility] Lrtfbwcnuy70[address] [place] [address]DrElizabeth Malone PROF 14(COMP METB)on 022 Albumin [Mass/Vol] 2.9 g/dL Critically low 3.4-5.0 [facility] Comment on above: Performed By: #### C MP ####[facility] Vmtwyflwvj[address] [place] [address]Dr. Donna Malone Albumin/Globulin [Mass ratio] 0.9 {ratio} Normal [facility] Comment on above: Performed By: #### C MP ####[facility] Gdunxmwxzh[address] [place] [address]Dr. Donna Malone ALP [Catalytic activity/Vol] 41 U/L Critically low 46-116 [facility] Comment on above: Performed By: #### C MP ####[facility] Arrxaxnsix[address] [place] [address]Dr. Donna Malone ALT [Catalytic activity/Vol] 12 U/L Critically low 16-63 [facility] Comment on above: Performed By: #### C MP ####[facility] Zcivlnqccq99[address] [place] [address]DrElizabeth Malone Anion gap [Moles/Vol] 5.6 mmol/L Normal [facility] Comment on above: Performed By: #### C MP ####[facility] Jkhnfqcjsy5[address] [place] [address]Dr. Donna Malone AST [Catalytic activity/Vol] 8 U/L Critically low 15-37 [facility] Comment on above: Performed By: #### C MP ####[facility] Yctjyoznhv7[address] [place] [address]Dr. Donna Malone Bilirubin [Mass/Vol] 0.5 mg/dL Normal 0.2-1.0 [facility] Comment on above: Performed By: #### C MP ####[facility] Dcbsoejase73[address] [place], [place] [address]Dr. Donna Malone Calcium [Mass/Vol] 8.3 mg/dL Critically low 8.5-10.1 [facility] Comment on above: Performed By: #### C MP ####[facility] Fefioexime9[address] [place], [place] [address]Dr. Donna Faisal Chloride [Moles/Vol] 106 mmol/L Normal 98-107 [facility] Comment on above: Performed By: #### C MP ####[facility] Qbcopypnbg[address] [place], [place] [address]Dr. Donna Faisal CO2 [Moles/Vol] 23.1 mmol/L Normal 21.0-32.0 [facility] Comment on above: Performed By: #### C MP ####[facility] Aljqwetetr[address] [place], [place] [address]Dr. Donna Faisal Creatinine [Mass/Vol] 0.82 mg/dL Normal 0.70-1.30 [facility] Comment on above: Performed By: #### C MP ####[facility] Rnbltjlbjo5[address] [place], [place] [address]Dr. Donna Faisal EGFR-AF LUXEMBOURGER >60 Normal >=60 [facility] Comment on above: Performed By: #### C MP ####[facility] Ejiknoupeu017[address] [place], [place] [address]Dr. Donna Malone EGFR-NON AF LUXEMBOURGER >60 Normal >=60 [facility] Comment on above: Performed By: #### C MP ####[facility] Gtfwfjgoom[address] [place], [place] [address]Dr. Donna Malone Globulin (S) [Mass/Vol] 3.2 g/dL Normal [facility] Comment on above: Performed By: #### C MP ####[facility] Ypifbmmexy[address] [place] [address]Dr. Donna Malone Glucose [Mass/Vol] 81 mg/dL Normal 74-106 [facility] Comment on above: Performed By: #### C MP ####[facility] [address]mmix[address] [place] [id number]. Donna Faisal Potassium [Moles/Vol] 3.7 mmol/L Normal 3.5-5.1 [facility] Comment on above: Performed By: #### C MP ####[facility] Rvhtviiuzp1652 [place] [address]Dr. Donna Malone Protein [Mass/Vol] 6.1 g/dL Critically low 6.4-8.2 [facility] Comment on above: Performed By: #### C MP ####[facility] Vaboxyjzpv9134[address] [place], [place] [address]Dr. Donna Faisal Sodium [Moles/Vol] 131 mmol/L Critically low 136-145 [facility] Comment on above: Performed By: #### C MP ####[facility] Qnutsqxtgr089[address] [place], [place] [address]Dr. Donna Faisal Urea nitrogen [Mass/Vol] 17.0 mg/dL Normal 7.0-18.0 [facility] Comment on above: Performed By: #### C MP ####[facility] Bzvmzehynq17[address] [place], [place] [address]Dr. Donna Faisal Urea nitrogen/Creatinine [Mass ratio] 20.7 mg/mg Normal [facility] Comment on above: Performed By: #### C MP ####[facility] Sbutrodssy[address] [place], [place] [address]Dr. Donna Faisal CBC AUTO DIFFon 05-14-2022 BASO # 0.1 103/ul Normal 0.0-0.1 [facility] Comment on above: Performed By: #### C BC ####[facility] Jmbjvyslyz97[address] [place], [place] [address]Dr. Rubyyvan Malone Basophils/100 WBC (Bld) 0.8 % Normal 0.2-2.0 [facility] Comment on above: Performed By: #### C BC ####[facility] Eqtjlvejed1980[address] [place], [place] [address]Dr. Donna Malone EO # 0.3 103/ul Normal 0.0-0.7 [facility] Comment on above: Performed By: #### C BC ####[facility] Gkwumkhmdt6156[address] [place], [place] [address]Dr. Donna Malone Eosinophils/100 WBC (Bld) 4.2 % Normal 0.9-7.0 [facility] Comment on above: Performed By: #### C BC ####[facility] Coqojgbzgl4955[address] [place], [place] [address]Dr. Donna Malone Erythrocyte distribution width (RBC) [Ratio] 14.7 % Normal 11.0-15.0 [facility] Comment on above: Performed By: #### C BC ####[facility] Qdhhvjsbsa10[address] [place], [place] [address]Dr. Donna Malone Hematocrit (Bld) [Volume fraction] 36.5 % Critically low 42.0-54.0 [facility] Comment on above: Performed By: #### C BC ####[facility] Uavphgcxto5469[address] [place], [place] [address]Dr. Donna Malone Hemoglobin (Bld) [Mass/Vol] 11.9 g/dL Critically low 14.0-18.0 [facility] Comment on above: Performed By: #### C BC ####[facility] Phgqwrruzp9810[address] [place], [place] [address]Dr. Donna Malone IG # 0.01 10e3/ul Normal 0.00-0.03 [facility] Comment on above: Performed By: #### C BC ####[facility] Dsrlkigiya37[address] [place], [place] [address]Dr. Donna Malone IG % 0.2 % Normal 0.0-0.5 [facility] Comment on above: Performed By: #### C BC ####[facility] Redjvaxpwd1416[address] [place], [place] [address]Dr. Donna Malone LYMPH # 2.1 103/ul Normal 1.2-3.8 [facility] Comment on above: Performed By: #### C BC ####[facility] Itdqnyabaj60[address] [place] [address]Dr. Donna Malone Lymphocytes/100 WBC (Bld) 32.1 % Normal 20.5-60.0 [facility] Comment on above: Performed By: #### C BC ####[facility] Ctjpougwtn[address] [place], [place] [address]Dr. Donna Malone MANUAL DIFF REQ NO Normal [facility] Comment on above: Performed By: #### C BC ####[facility] Nzrupvllfb7916[address] [place], [place] [address]Dr. Donna Malone MCH (RBC) [Entitic mass] 29.7 pg Normal 25.9-34.0 [facility] Comment on above: Performed By: #### C BC ####[facility] Nowqpddttu[address] [place], [place] [address]Dr. Donna Malone MCHC (RBC) [Mass/Vol] 32.6 g/dL Normal 29.9-35.2 [facility] Comment on above: Performed By: #### C BC ####[facility] Bperscoyef[address] [place], [place] [address]Dr. Donna Malone MCV (RBC) [Entitic vol] 91.0 fL Normal 80.0-94.0 [facility] Comment on above: Performed By: #### C BC ####[facility] Hbgweeqajv[address] [place], [place] [address]Dr. Donna Malone MONO # 0.5 103/ul Normal 0.3-0.8 [facility] Comment on above: Performed By: #### C BC ####[facility] Kaswwdoafn5832[address] [place], [place] [address]Dr. Donna Malone Monocytes/100 WBC (Bld) 8.1 % Normal 1.7-12.0 [facility] Comment on above: Performed By: #### C BC ####[facility] Kajmtatuwf6595[address] [place], [place] [address]Dr. Donna Malone NEUT # 3.5 103/ul Normal 1.4-6.5 [facility] Comment on above: Performed By: #### C BC ####[facility] Nfiemvkjsr45[address] [place] [address]DrElizabeth Malone Neutrophils/100 WBC (Bld) 54.6 % Normal 43.0-75.0 [facility] Comment on above: Performed By: #### C BC ####[facility] Dxwawyfgdy7183 [place] [address]DrElizabeth Malone Platelet mean volume (Bld) [Entitic vol] 12.0 fL Normal 9.5-13.5 [facility] Comment on above: Performed By: #### C BC ####[facility] Zhpdtfmmgn88[address] [place], [place] [address]DrElizabeth Malone PLT 152 103/ul Normal 150-450 [facility] Comment on above: Performed By: #### C BC ####[facility] Cmlwexgdgk[address] [place], [place] [address]DrElizabeth Malone RBC 4.01 106/ul Critically low 4.70-6.10 [facility] Comment on above: Performed By: #### C BC ####[facility] Gqnrqfofre[address] [place], [place] [address]DrElizabeth Malone WBC 6.4 103/ul Normal 4.0-11.0 [facility] Comment on above: Performed By: #### C BC ####[facility] Vzxbukgfob40[address] [place], [place] [address]DrElizabeth Malone DEPAKENE/VALPROICon 05-14-20 22 DEPAKENE 17.3 ug/ml Critically low 50.0-100.0 [facility] Comment on above: Performed By: #### V ALP ####[facility] Hgwvqwuzsr[address] [place], [place] [address]DrElizabeth Malone POINT OF CARE GLUCOSEon Glucose [Mass/Vol] 89 mg/dL Normal 74-106 [facility] Comment on above: Performed By: #### P OCGLUC ####[facility] Uxqedyzief[address] [place], [place] [address]DrElizabeth Malone PROF CHEM 8 (BAS METB)on Anion gap [Moles/Vol] 13.6 mmol/L Normal [facility] Comment on above: Performed By: #### B MP ####[facility] Gaqrfgokna[address] [place] [address]Dr. Donna Malone Calcium [Mass/Vol] 7.8 mg/dL Critically low 8.5-10.1 [facility] Comment on above: Performed By: #### B MP ####[facility] Fnxpzqoksi7[address] [place], [place] [address]Dr. Donna Malone Chloride [Moles/Vol] 112 mmol/L Critically high 98-107 [facility] Comment on above: Performed By: #### B MP ####[facility] Pcsirkqlzq2046[address] [place], [place] [address]Dr. Donna Malone CO2 [Moles/Vol] 22.5 mmol/L Normal 21.0-32.0 [facility] Comment on above: Performed By: #### B MP ####[facility] Sazdkhbimr7[address] [place], [place] [address]Dr. Donna Malone Creatinine [Mass/Vol] 1.01 mg/dL Normal 0.70-1.30 [facility] Comment on above: Performed By: #### B MP ####[facility] Johowjquvk[address]32[address] [place], [place] [address]Dr. Donna Malone EGFR-AF LUXEMBOURGER >60 Normal >=60 [facility] Comment on above: Performed By: #### B MP ####[facility] Eewdikcjkl[address] [place] [address]Dr. Donna Malone EGFR-NON AF LUXEMBOURGER >60 Normal >=60 [facility] Comment on above: Performed By: #### B MP ####[facility] Jenaptkxir8[address] [place], [place] [address]Dr. Donan Malone Glucose [Mass/Vol] 84 mg/dL Normal 74-106 [facility] Comment on above: Performed By: #### B MP ####[facility] Hxpejuuvhg9664[address] [place], [place] [address]Dr. Donna Malone Potassium [Moles/Vol] 4.1 mmol/L Normal 3.5-5.1 [facility] Comment on above: Performed By: #### B MP ####[facility] Smuizojqnd2639 [place] [address]Dr. Donna Malone Sodium [Moles/Vol] 144 mmol/L Normal 136-145 [facility] Comment on above: Performed By: #### B MP ####[facility] Jcfvnilpgv[address] [place], [place] [address]Dr. Donna Malone Urea nitrogen [Mass/Vol] 21.0 mg/dL Critically high 7.0-18.0 [facility] Comment on above: Performed By: #### B MP ####[facility] Mqpjapbwau[address] [place], [place] [address]Dr. Donna Malone Urea nitrogen/Creatinine [Mass ratio] 20.8 mg/mg Normal [facility] Comment on above: Performed By: #### B MP ####[facility] Zqlsfsmtkk[address] [place], [place] [address]Dr. Donna Malone TSHon 05-14-2022 TSH 1.086 uIU/mL Normal 0.358-3.74 0 [facility] Comment on above: Performed By: #### T SH ####[facility] Alefnatgry[address] [place], [place] [address]Dr. Donna Malone BLOOD GASES BTYon 05-13-2022 02 MODE ROOM AIR Normal [facility] Comment on above: Performed By: #### A BG ####[facility] Mxmhkebedp892[address] [place], [place] [address]Dr. Donna Malone ALLENS TEST Positive Normal [facility] Comment on above: Performed By: #### A BG ####[facility] Mjadvoznkd[address] [place], [place] [address]Dr. Donna Malone Base excess Calc (Bld) [Moles/Vol] -2.5000 mmol/L Critically low -2.0-2.0 [facility] Comment on above: Performed By: #### A BG ####[facility] Dwejdozwvt[address] [place], [place] [address]Dr. Donna Malone BIPAP PRESSURE Normal [facility] Comment on above: Performed By: #### A BG ####[facility] [address]aiqjdytoz82[address] [place], [place] [address]Dr. Donna Malone CPAP Normal [facility] Comment on above: Performed By: #### A BG ####[facility] Zgpwfkxloo[address] [place], [place] [address]Dr. Donna Malone FIO2 [facility] Comment on above: Performed By: #### A BG ####[facility] Giefsgiekv[address] [place], [place] [address]Dr. Donna Malone HCO3 (Bld) [Moles/Vol] 22.4 mmol/L Normal 22.0-26.0 [facility] Comment on above: Performed By: #### A BG ####[facility] Cuvqdwpykc[address] [place], [place] [address]Dr. Donna Malone LPM [facility] Comment on above: Performed By: #### A BG ####[facility] Pybvvmddoe5620[address] [place], [place] [address]Dr. Donna Malone MINUTE VOLUME Normal [facility] Comment on above: Performed By: #### A BG ####[facility] Btoweeagdf250[address] [place], [place] [address]Dr. Donna Malone Oxygen (Bld) [Partial pressure] 77.6 mm[Hg] Critically low 80.0-100.0 [facility] Comment on above: Performed By: #### A BG ####[facility] Fedeptfsbs4720[address] [place], [place] [address]Dr. Donna Malone Oxygen saturation in Blood 95.5 % Normal 95.0-100.0 [facility] Comment on above: Performed By: #### A BG ####[facility] Ncwxzamvvz4430[address] [place], [place] [address]Dr. Donna Malone PCO2 40.8 mmHg Normal 35.0-45.0 [facility] Comment on above: Performed By: #### A BG ####[facility] Nbgjbnciqe2112[address] [place], [place] [address]Dr. Donna Malone PEEP [facility] Comment on above: Performed By: #### A BG ####[facility] Esedveqruh[address] [place] [address]Dr. Donna Malone pH (Bld) 7.359 [pH] Normal 7.350-7.45 0 [facility] Comment on above: Performed By: #### A BG ####[facility] Umiqpoqthk[address] [place] [address]Dr. Donna Malone PIP [facility] Comment on above: Performed By: #### A BG ####[facility] Zpxinbmrak6073 [place] [address]Dr. Donna Malone PS [facility] Comment on above: Performed By: #### A BG ####[facility] Qnlfoimarq88[address] [place], [place] [address]Dr. Donna Malone PUNCTURE SITE RR [facility] Comment on above: Performed By: #### A BG ####[facility] Xjkjqdmazn[address] [place], [place] [address]Dr. Donna Malone RATE [facility] Comment on above: Performed By: #### A BG ####[facility] Zaqccqanfi[address] [place], [place] [address]Dr. Donna Malone VENT MODE [facility] Comment on above: Performed By: #### A BG ####[facility] Ahdnnfrssf[address] [place], [place] [address]Dr. Donna Malone VT [facility] Comment on above: Performed By: #### A BG ####[facility] Crijcfgtdq[address] [place], [place] [address]Dr. Donna Malone BNPon 05-13-2022 Natriuretic peptide B (Bld) [Mass/Vol] 156.0 pg/mL Normal <=900.0 [facility] Comment on above: Performed By: #### C MP, CMADM, BNP ####[facility] Hqpqyzclty[address] [place] [address]Dr. Donna Malone CARDIAC MJ ADMITon 022 CK [Catalytic activity/Vol] 119 U/L Normal 39-308 [facility] Comment on above: Performed By: #### C MP, CMADM, BNP ####[facility] [address]xz[address] [place] [id number]. Donna Faisal CK.MB [Mass/Vol] 1.27 ng/mL Normal <=3.60 [facility] Comment on above: Performed By: #### C MP, CMADM, BNP ####[facility] [address]ptdbibyaw0[address] [place] [id number]. Donna Faisal HSTROP 7.9 pg/mL Normal 4.0-76.1 [facility] Comment on above: Result Comment: CUT- OFF POINTS HAVE BEEN ESTABLISHED BASED ON THE FOURTH UNIVERSAL DEFINITIONS OF MYOCARDIALINFARCTION. THE UPPER REFERENCE LIMIT (URL) OF TROPONIN, DEFINED THE 99TH PERCENTILE OFcTnI DISTRIBUTION IN A REFERENCE POPULATION, HAS BEEN CONFIRMED THE DECISION THRESHOLDFOR GA DIAGNOSIS. Performed By: #### C MP, CMADM, BNP ####[facility] [address]ymob[address]qmc[address] [place] [address]Dr. Rubyyvan Malone BINDU 111 ng/mL Critically high 16-96 [facility] Comment on above: Performed By: #### C MP, CMADM, BNP ####[facility] Sigcfvlyvz77[address] [place] [id number]. Donna Faisal CBC AUTO DIFFon 05-13-2022 BASO # 0.1 103/ul Normal 0.0-0.1 [facility] Comment on above: Performed By: #### C BC ####[facility] [place] [facility] [address] [address]Dr. Donna Malone Basophils/100 WBC (Bld) 0.8 % Normal 0.2-2.0 [facility] [place] [facility] Comment on above: Performed By: #### C BC ####[facility] [place] [facility] [address] [id number]. Donna Malone EO # 0.1 103/ul Normal 0.0-0.7 [facility] [place] [facility] Comment on above: Performed By: #### C BC ####[facility] [place] [facility] [address]gb[address]qqg[address] [id number]. Donna Malone Eosinophils/100 WBC (Bld) 1.8 % Normal 0.9-7.0 [facility] Comment on above: Performed By: #### C BC ####[facility] [place] [facility] [address] [address]Dr. Donna Malone Erythrocyte distribution width (RBC) [Ratio] 14.7 % Normal 11.0-15.0 [facility] Comment on above: Performed By: #### C BC ####[facility] [place] [facility] T[address] [place], [place] [address]Dr. Donna Malone Hematocrit (Bld) [Volume fraction] 38.2 % Critically low 42.0-54.0 [facility] Comment on above: Performed By: #### C BC ####[facility] [place] [facility] Dfqellaffz[address] [place], [place] [address]Dr. Donna Malone Hemoglobin (Bld) [Mass/Vol] 12.7 g/dL Critically low 14.0-18.0 [facility] Comment on above: Performed By: #### C BC ####[facility] [place] [facility] Fkbxxyvmap[address] [place], [place] [address]Dr. Donna Malone IG # 0.03 10e3/ul Normal 0.00-0.03 [facility] Comment on above: Performed By: #### C BC ####[facility] [place] [facility] [address]rnhst[address] [place], [place] [address]Dr. Donna Malone IG % 0.4 % Normal 0.0-0.5 [facility] Comment on above: Performed By: #### C BC ####[facility] [place] [facility] Xz[address]xr[address] [place], [place] [address]Dr. Donna Malone LYMPH # 1.6 103/ul Normal 1.2-3.8 [facility] [place] [facility] Comment on above: Performed By: #### C BC ####[facility] [place] [facility] Jvejwgpmva[address] [place], [place] [address]Dr. Donna Malone Lymphocytes/100 WBC (Bld) 22.8 % Normal 20.5-60.0 [facility] [place] [facility] Comment on above: Performed By: #### C BC ####[facility] [place] [facility] Lskxvkxtoo9[address] [place], [place] [address]Dr. Donna Faisal MANUAL DIFF REQ NO Normal [facility] Comment on above: Performed By: #### C BC ####[facility] [place] [facility] [address]uk[address] [place] [address]Dr. Donna Faisal MCH (RBC) [Entitic mass] 30.2 pg Normal 25.9-34.0 [facility] Comment on above: Performed By: #### C BC ####[facility] [place] [facility] [address] [address]Dr. Rubyyvan Malone MCHC (RBC) [Mass/Vol] 33.2 g/dL Normal 29.9-35.2 [facility] [place] [facility] Comment on above: Performed By: #### C BC ####[facility] [place] [facility] Zztfqvfqxl27[address] [place], [place] [address]Dr. Donna Malone MCV (RBC) [Entitic vol] 91.0 fL Normal 80.0-94.0 [facility] [place] [facility] Comment on above: Performed By: #### C BC ####[facility] [place] [facility] Lakjausltc[address] [place], [place] [address]Dr. Donna Malone MONO # 0.7 103/ul Normal 0.3-0.8 [facility] [place] [facility] Comment on above: Performed By: #### C BC ####[facility] [place] [facility] Tqlxpiylzl[address] [place], [place] [address]Dr. Donna Malone Monocytes/100 WBC (Bld) 9.1 % Normal 1.7-12.0 [facility] [place] [facility] Comment on above: Performed By: #### C BC ####[facility] [place] [facility] Hzwuzqcepv68[address] [place], [place] [address]DrElizabeth Malone NEUT # 4.7 103/ul Normal 1.4-6.5 [facility] [place] [facility] Comment on above: Performed By: #### C BC ####[facility] [place] [facility] Fewlqizixr[address] [place], [place] [address]DrElizabeth Malone Neutrophils/100 WBC (Bld) 65.1 % Normal 43.0-75.0 [facility] [place] [facility] Comment on above: Performed By: #### C BC ####[facility] [place] [facility] Jlodwstjjd97[address] [place], [place] [address]DrElizabeth Malone Platelet mean volume (Bld) [Entitic vol] 11.8 fL Normal 9.5-13.5 [facility] [place] [facility] Comment on above: Performed By: #### C BC ####[facility] [place] [facility] [address]wn[address] [place], [place] [address]Yg. Donna Malone PLT 179 103/ul Normal 150-450 [facility] [place] [facility] Comment on above: Performed By: #### C BC ####[facility] [place] [facility] Qloekihpia0269 [place], [place] [address]Yb. Donna Malone RBC 4.20 106/ul Critically low 4.70-6.10 [facility] Comment on above: Performed By: #### C BC ####[facility] [place] [facility] Ipmyjppvgi6451 [place], [place] [address]Yw. Donna Malone WBC 7.2 103/ul Normal 4.0-11.0 [facility] [place] [facility] Comment on above: Performed By: #### C BC ####[facility] [place] [facility] [address]efimiji4[address] [place], [place] [address]Su. Donna [address] STROKE HEAD WOon 05-13-[address] STROKE HEAD WO Normal [facility] [place] [facility]on SARS-CoV-2 (COVID-19) RNA JOSÉ MIGUEL+probe Ql (Unsp spec) Not detected Normal NOT DETECTED [facility] [place] [facility] Comment on above: Result Comment: When [...] for this test is supported by the [employer] Member of Health and Human Service's declaration that [...] be used). Performed By: #### C VDTBH ####[facility] [place] [facility] [address] [address]Dr. Donna Malone DEPAKENE/VALPROICon 05-13-20 22 DEPAKENE 16.9 ug/ml Critically low 50.0-100.0 [facility] [place] [facility] Comment on above: Performed By: #### V ALP ####[facility] [place] [facility] [address]utdp[address] [address]Dr. Rubyyvan Faisal DRUG SCREEN RAPID (URINE)on 05-13-2022 AMP Negative Normal NEGATIVE [facility] [place] [facility] Comment on above: Performed By: #### D RUGRPD ####[facility] [place] [facility] Plkxedrxua[address] [place], [place] [address]Dr. Donna Malone BAR Negative Normal NEGATIVE [facility] [place] [facility] Comment on above: Performed By: #### D RUGRPD ####[facility] [place] [facility] [address]htyxztn[address] [place], [place] [address]Dr. Donna Malone BUP Negative Normal NEGATIVE [facility] [place] [facility] Comment on above: Performed By: #### D RUGRPD ####[facility] [place] [facility] Cmpdouyswy[address] [place], [place] [address]Dr. Donna Malone BZO Positive Abnormal NEGATIVE [facility] [place] [facility] Comment on above: Performed By: #### D RUGRPD ####[facility] [place] [facility] Lxgljlgmqp[address] [place], [place] [address]Dr. Donna Malone EVONNE Positive Abnormal NEGATIVE [facility] [place] [facility] Comment on above: Performed By: #### D RUGRPD ####[facility] [place] [facility] Upqhlantdd[address] [place], [place] [address]Dr. Donna Malone CUT-OFFS SEE BELOW Normal [facility] [place] [facility] Comment on above: Result Comment: AMP (Amphetamine): 500ng/mL, BAR (Barbituates): 200 ng/mL, BZO (Benzodiazepines): 150 ng/mL, BUP (Buprenorphine): 10 ng/mL, EVONNE (Cocaine): 150 ng/mL, mAMP (Methamphetamine): 500 ng/mL, MTD (Methadone): 200 ng/mL, OPI (Opiates): 100 ng/mL, OXY (Oxycodone): 100 ng/mL, PCP (Phencyclidine): 25 ng/mL, PPX (Propoxyphene): 300 ng/mL, THC (Cannabinoids): 50 ng/mL, TCA (Trycyclic Antidepressants): 300 ng/mL Performed By: #### D RUGRPD ####[facility] [place] [facility] Wtfsyejhyu[address] [place], [place] [address]Dr. Donna Malone DRUG CUT HEADER DRUG CLASS TEST SYST EM CUT-OFF CONCENTRATIONS ARE FOLLOWS: Normal [facility] [place] [facility] Comment on above: Performed By: #### D RUGRPD ####[facility] [place] [facility] [address]ahuv[address]yc[address] [place], [place] [address]Dr. Rubyyvan Faisal mAMP Negative Normal NEGATIVE [facility] [place] [facility] Comment on above: Performed By: #### D RUGRPD ####[facility] [place] [facility] Sptrvswzhz[address] [place], [place] [address]Dr. Donna Malone MTD Negative Normal NEGATIVE [facility] [place] [facility] Comment on above: Performed By: #### D RUGRPD ####[facility] [place] [facility] [address]qtl[address] [place], [place] [address]Dr. Donna Malone OPI Positive Abnormal NEGATIVE [facility] [place] [facility] Comment on above: Performed By: #### D RUGRPD ####[facility] [place] [facility] W[address]owylegz[address] [place], [place] [address]Dr. Rubyyvan Malone OXY Negative Normal NEGATIVE [facility] [place] [facility] Comment on above: Performed By: #### D RUGRPD ####[facility] [place] [facility] Oojxbtzboo[address] [place], [place] [address]Dr. Donna Malone PCP Negative Normal NEGATIVE [facility] [place] [facility] Comment on above: Performed By: #### D RUGRPD ####[facility] [place] [facility] [address]quiqiyfyy[address] [place], [place] [address]Dr. Rubyyvan Malone PPX Negative Normal NEGATIVE [facility] [place] [facility] Comment on above: Performed By: #### D RUGRPD ####[facility] [place] [facility] [address]spxvvzv[address] [place], [place] [address]Dr. Donna Malone TCA Positive Abnormal NEGATIVE [facility] [place] [facility] Comment on above: Performed By: #### D RUGRPD ####[facility] [place] [facility] Gpnxjmfyfi[address] [place], [place] [address]Dr. Rubyyvan Malone THC Negative Normal NEGATIVE [facility] [place] [facility] Comment on above: Performed By: #### D RUGRPD ####[facility] [place] [facility] Kwntsieprz[address] [place], [place] [address]Dr. Donna Malone ER URINE PROFILEon 2 Bilirubin Ql (U) MODERATE Abnormal NEGATIVE [facility] [place] [facility] Comment on above: Performed By: #### E RUR ####[facility] [place] [facility] Xykbqmnmzm[address] [place], [place] [address]Dr. Donna Malone Clarity (U) SL CLOUDY Abnormal CLEAR [facility] [place] [facility] Comment on above: Performed By: #### E RUR ####[facility] [place] [facility] Malobujkns[address] [place], [place] [address]Dr. Donna Malone Color (U) DK. YELLOW Normal YELLOW [facility] [place] [facility] Comment on above: Performed By: #### E RUR ####[facility] [place] [facility] [address]ufqenzmb[address] [place], [place] [address]Dr. Donna Malone ERUAHD A micrscopic examina tion will be performed if indicated. Normal [facility] [place] [facility] Comment on above: Performed By: #### E RUR ####[facility] [place] [facility] [address]zmezqtgk[address] [place], [place] [address]Dr. Donna Malone Glucose Ql (U) 250 mg/dl Abnormal NEGATIVE [facility] [place] [facility] Comment on above: Performed By: #### E RUR ####[facility] [place] [facility] Kjnzlcugsl[address] [place], [place] [address]Dr. Donna Malone Hemoglobin Ql (U) Negative Normal NEGATIVE [facility] [place] [facility] Comment on above: Performed By: #### E RUR ####[facility] [place] [facility] Slwjjzhiyt[address] [place], [place] [address]Dr. Donna Malone Ketones Ql (U) TRACE Abnormal NEGATIVE [facility] [place] [facility] Comment on above: Performed By: #### E RUR ####[facility] [place] [facility] Sc[address]pfurnq[address] [place], [place] [address]Dr. Donna Malone LEUKOCYTES Negative Normal NEGATIVE [facility] [place] [facility] Comment on above: Performed By: #### E RUR ####[facility] [place] [facility] Kdsuinokqi[address] [place], [place] [address]Dr. Donna Malone Nitrite Ql (U) Negative Normal NEGATIVE [facility] [place] [facility] Comment on above: Performed By: #### E RUR ####[facility] [place] [facility] [address] [address]Dr. Donna Malone pH (U) 5.5 [pH] Normal 5-9 [facility] [place] [facility] Comment on above: Performed By: #### E RUR ####[facility] [place] [facility] [address]ysypm[address] [address]Dr. Rubyyvan Faisal SPEC GRAVITY >=1.030 Abnormal 1.005-<=1. 025 [facility] Comment on above: Performed By: #### E RUR ####[facility] [place] [facility] Lkyupbxpmd[address] [place], [place] [address]Dr. Donna Malone UA PROTEIN TRACE Normal NEGATIVE/ TRACE [facility] [place] [facility] Comment on above: Performed By: #### E RUR ####[facility] [place] [facility] Dvqaaxbrna[address] [place], [place] [address]Dr. Donna Malone UR MICRO IND NOT INDICATED Normal [facility] [place] [facility] Comment on above: Performed By: #### E RUR ####[facility] [place] [facility] Qsoaagezcx[address] [place], [place] [address]Dr. Rubyyvan Malone Urobilinogen Qn (U) 1.0 {Jermain'U}/dL Normal 0.2 - 1. 0 [facility] [place] [facility] Comment on above: Performed By: #### E RUR ####[facility] [place] [facility] [address]djfhjdfqx[address] [place], [place] [address]Dr. Donna Malone ETHANOL (BLD ALC)on 05-13-20 ALC NOTE NOTE: 80 mg/dl is th e legal limit for a blood alcohol level Normal [facility] [place] [facility] Comment on above: Performed By: #### E TH ####[facility] [place] [facility] [address]oc[address]us[address] [place], [place] [address]Dr. Donna Malone Ethanol [Mass/Vol] mg/dL Normal [facility] [place] [facility] Comment on above: Performed By: #### E TH ####[facility] [place] [facility] Fmieoyxzxn[address] [place], [place] [address]Dr. Donna Malone LACTATE/LACTIC ACIDon 2021 Lactate [Moles/Vol] 1.7 mmol/L Normal 0.4-1.9 [facility] [place] [facility] Comment on above: Performed By: #### L ACT ####[facility] [place] [facility] [address] [address]Dr. Donna Malone POINT OF CARE GLUCOSEon Glucose [Mass/Vol] 99 mg/dL Normal 74-106 [facility] Comment on above: Performed By: #### P OCGLUC ####[facility] [place] [facility] [address]rofxb[address] [address]Dr. Donna Malone PROF 14(COMP METB)on 022 Albumin [Mass/Vol] 3.1 g/dL Critically low 3.4-5.0 [facility] Comment on above: Performed By: #### C MP, CMADM, BNP ####[facility] [place] [facility] [address] [address]Dr. Donna Malone Albumin/Globulin [Mass ratio] 1.0 {ratio} Normal [facility] Comment on above: Performed By: #### C MP, CMADM, BNP ####[facility] [place] [facility] [address]ge[address] [address]Dr. Donna Malone ALP [Catalytic activity/Vol] 37 U/L Critically low 46-116 [facility] Comment on above: Performed By: #### C MP, CMADM, BNP ####[facility] [place] [facility] [address]ip[address] [place] [address]Dr. Donna Malone ALT [Catalytic activity/Vol] 14 U/L Critically low 16-63 [facility] Comment on above: Performed By: #### C MP, CMADM, BNP ####[facility] [place] [facility] [address]xnvfetxx[address] [place] [address]Dr. Donna Malone Anion gap [Moles/Vol] 12.3 mmol/L Normal [facility] Comment on above: Performed By: #### C MP, CMADM, BNP ####[facility] [place] [facility] [address]wkp[address] [address]Dr. Donna Malone AST [Catalytic activity/Vol] 12 U/L Critically low 15-37 [facility] Comment on above: Performed By: #### C MP, CMADM, BNP ####[facility] [place] [facility] I[address]txg[address] [place] [address]Dr. Donna Malone Bilirubin [Mass/Vol] 0.4 mg/dL Normal 0.2-1.0 [facility] Comment on above: Performed By: #### C MP, CMADM, BNP ####[facility] [place] [facility] [address] [place] [address]Dr. Donna Malone Calcium [Mass/Vol] 7.8 mg/dL Critically low 8.5-10.1 Th [facility] Comment on above: Performed By: #### C MP, CMADM, BNP ####[facility] [place] [facility] [address]dfd[address] [place] [address]Dr. Donna Malone Chloride [Moles/Vol] 108 mmol/L Critically high 98-107 [facility] Comment on above: Performed By: #### C MP, CMADM, BNP ####[facility] [place] [facility] Ltiaehslzy[address] [place], [place] [address]Dr. Donna Malone CO2 [Moles/Vol] 24.8 mmol/L Normal 21.0-32.0 [facility] [place] [facility] Comment on above: Performed By: #### C MP, CMADM, BNP ####[facility] [place] [facility] [address]mft[address]uxway[address] [place], [place] [address]Dr. Donna Faisal Creatinine [Mass/Vol] 1.83 mg/dL Critically high 0.70-1.30 [facility] Comment on above: Performed By: #### C MP, CMADM, BNP ####[facility] [place] [facility] Xfhhcgmdtq[address] [place], [place] [address]Dr. Donna Faisal EGFR-AF LUXEMBOURGER 45 mL/min/1.73m2 Critically low >=60 [facility] [place] [facility] Comment on above: Performed By: #### C MP, CMADM, BNP ####[facility] [place] [facility] [address]urvjlrni[address] [place], [place] [address]Dr. Rubyyvan Faisal EGFR-NON AF LUXEMBOURGER 37 mL/min/1.73m2 Critically low >=60 [facility] Comment on above: Performed By: #### C MP, CMADM, BNP ####[facility] [place] [facility] [address]rs[address] [place], [place] [address]Dr. Donna Malone Globulin (S) [Mass/Vol] 3.2 g/dL Normal [facility] Comment on above: Performed By: #### C MP, CMADM, BNP ####[facility] [place] [facility] [address]lako[address] [place] [address]Dr. Donna Malone Glucose [Mass/Vol] 202 mg/dL Critically high 74-106 [facility] Comment on above: Performed By: #### C MP, CMADM, BNP ####[facility] [place] [facility] Q[address]zgcszktz35[address] [place] [address]Dr. Donna Malone Potassium [Moles/Vol] 4.1 mmol/L Normal 3.5-5.1 [facility] Comment on above: Performed By: #### C MP, CMADM, BNP ####[facility] [place] [facility] [address]kowo[address] [place] [address]Dr. Donna Malone Protein [Mass/Vol] 6.3 g/dL Critically low 6.4-8.2 [facility] Comment on above: Performed By: #### C MP, CMADM, BNP ####[facility] [place] [facility] Pegltxekhz[address] [place] [address]Dr. Donna Malone Sodium [Moles/Vol] 141 mmol/L Normal 136-145 [facility] Comment on above: Performed By: #### C MP, CMADM, BNP ####[facility] [place] [facility] [address]xemsqqv[address] [place] [address]Dr. Donna Malone Urea nitrogen [Mass/Vol] 32.0 mg/dL Critically high 7.0-18.0 [facility] Comment on above: Performed By: #### C MP, CMADM, BNP ####[facility] [place] [facility] [address]myce[address] [place] [address]Dr. Donna Malone Urea nitrogen/Creatinine [Mass ratio] 17.5 mg/mg Normal [facility] Comment on above: Performed By: #### C MP, CMADM, BNP ####[facility] [place] [facility] [address] [place] [address]Dr. Donna Malone PROTIMEon 05-13-2022 INR Coag (PPP) [Relative time] 1.04 {INR} Normal [facility] Comment on above: Performed By: #### P T, PTT ####[facility] [place] [facility] [address]wf[address] [place] [id number]. Donna Malone INR GUIDELINES SEE BELOW Normal [facility] Comment on above: Result Comment: FLORESITA RED INR: 2.0 - 3.0 CONDITIONS NOT LISTED BELOW 2.5 - 3.5 FOR PROSTHETIC HEART VALVE REPLACEMENT 2.5 - 3.5 RECURRENT THROMBOSIS Performed By: #### P T, PTT ####[facility] [place] [facility] [address] [place] [id number]. Donna Malone PT Coag (PPP) [Time] 11.2 s Normal 9.0-11.6 [facility] Comment on above: Performed By: #### P T, PTT ####[facility] [place] [facility] [address] [place] [address]Dr. Donna Malone PTTon 05-13-2022 aPTT Coag (Bld) [Time] 27.5 s Normal 22.3-36.2 [facility] Comment on above: Performed By: #### P T, PTT ####[facility] [place] [facility] [address]qu[address] [place] [address]Dr. Donna Malone XR CHEST 1 Von 05-13-2022 XR CHEST 1 V Normal [facility] Ambulatory Visit Summaryon 0 10-03-2021 Ambulatory [...] physician if questions or concerns acetaminophen acetaminophen-hydrocodone ([place] 5/325 Tab) amlodipine (amLODIPine 5 mg Tab) [...] Cysto Where: [facility] [address], [place] [address]- Medications What How Much When Instructions New ciprofloxacin (Cipro 500 mg Tab) 1 Tablets By Mouth Every day Take 1 tablet the day before the procedure and 1 tablet after the procedure Pickup at [facility] Unchanged acetaminophen 650 Milligram Every 4 hours Contact prescribing physician if questions or concerns Unchanged acetaminophen-hydrocodone ([place] 5/ 325 Tab) 1 Tablets By Mouth [...] physician if questions or concerns Pharmacy Information [facility]: [address] [place], [place] [id number] [phone] (more content not included)... Normal [facility] Ambulatory Visit Summary TAYLOR MCCLELLAN SR :1955 [...] physician if questions or concerns acetaminophen acetaminophen-hydrocodone ([place] 5/325 Tab) amlodipine (amLODIPine 5 mg Tab) [...] schedule Cysto Where: [facility] [address] [place] [address]- Medications What How Much When Instructions New ciprofloxacin (Cipro 500 mg Tab) 1 Tablets By Mouth Every day Take 1 tablet the day before the procedure and 1 tablet after the procedure Pickup at [facility] Unchanged acetaminophen 650 Milligram Every 4 hours Contact prescribing physician if questions or concerns Unchanged acetaminophen-hydrocodone ([place] 5/ 325 Tab) 1 Tablets By Mouth [...] physician if questions or concerns Pharmacy Information [facility]: [address] [place], [place] [id number] [phone] (more content not included)... [facility] Longterm Recordson 10-03 Longterm Records [id number] [facility] Patient Educationon 10-03-19 Patient Education Urology [...] Follow these instructions at home: ? Take xily-ucx-qfbtxkn and prescription medicines only as told by [...] d (more content not included)... Normal [facility] Urology Office/Clinic Noteon 10-03-2021 Urology Office/Clinic Note Chief Complaint This is a 66 year old male in the [place] ER on 09/14/21. This patient has a [...] 10/30/18. Pt. was seen in the [facility] ER on 09/14/21 due to generalized weakness. [...] recently. Family was in the hospital at [place] where he had severe weakness. A Galindo [...] last seen in 2019. Patient was in [facility] 09/14/21 due to weakness and acute [...] dribbling) moderate, (more content not included)... Normal [facility] Comment on above: Result Comment: Elec tronically Signed By: Sharad Grossman MD, Lisandro Espinal\.br\Date and Time Signed: 10/03/21 12:37 EST\.br\Electronically Co-Signed By: Lisandra Arias\.br\Date and Time Co-Signed: 10/03/21 12:32 EST APTTon 10-13-2019 aPTT Coag (Bld) [Time] 34.9 s Normal 25.0-35.0 Th e [facility] Comment on above: Result Comment: ALL RESULTS [...] THIS PURPOSE. Performed By: #### 5 6101, [id number] #### [facility] [address] [place] [address], [place] CREATININE BLOODon 0 Creatinine [Mass/Vol] 1.07 mg/dL Normal 0.70-1.30 [facility] Comment on above: Performed By: #### 2 5656 #### [facility] [address] [place] [address], [place] Creatinine [Mass/Vol] mg/dL Normal >60 [facility] Comment on above: Performed By: #### 2 5656 #### [address] LUMBAR SPINE W CONTRASTon 10-13-2019 CT LUMBAR SPINE W CONTRAST [facility] Department of Radiology [address] [place] [id number] Patient Name: TAYLOR MCCLELLAN : 1955 Sex: M Age: Race: White Pt. Location: Patient Status: O Ordered Date: 09/11/2019 2:50:00 PM Completed Date: 10/13/2019 11:37 AM Requesting Provider: JASEN HOWARD Attending Provider: JASEN HOWARD Report Copy To: LUI BRYSON Signs & Symptoms: M51.36 Other intervertebral disc degeneration, lumbar region I10 History: [place] Need Saturday appointment call [facility] [phone] [facility] auth# [id number] 09/16/19-10/15/19 cpt code 98776 *mla Comments: Exam: CT LUMBAR SPINE W [...] achievable Electronically signed: Fredy Salmeron. Transcribed by: [email or web address], User Resident: Electronically Signed by: FREDY SALMERON @ 10/13/2019 02:08 PM Normal [facility] LUMBAR MYELOGRAMon 0 LUMBAR MYELOGRAM [facility] Department of Radiology [address] [place] [phone] Patient Name: TAYLOR MCCLELLAN : 1955 Sex: M Age: Race: White Pt. Location: Patient Status: O Ordered Date: 09/11/2019 2:50:00 PM Completed Date: 10/13/2019 10:49 AM Requesting Provider: JASEN HOWARD Attending Provider: JASEN HOWARD Report Copy To: LUI BRYSON Signs & Symptoms: M51.36 Other intervertebral disc degeneration, lumbar region I10 History: [place] Need Saturday appointment Patient will need labs, [...] risks are acceptable. Consent was obtained. Timeout: [place] protocol timeout verification performed. PROCEDURE: Estimated blood [...] reports Electronically signed: Fredy Salmeron. Transcribed by: [email or web address], User Resident: KRISTINE BALLARD Electronically Signed by: FREDY SALMERON @ 10/13/2019 06:58 PM I personally read this/these film(s) with this resident Normal [facility] Comment on above: Order Comment: , , = ========= , Ordering Provider - JASEN HOWARD MD , PROTHROMBIN TIMEon 0 INR Coag (PPP) [Relative time] 1.05 {INR} Normal 0.91-1.16 [facility] Comment on above: Result Comment: ACCC P [...] CHEST 1995;[id number]. Performed By: #### [id number] #### [facility] [address] PT Coag (PPP) [Time] 13.7 s Normal 12.3-14.8 [facility] Comment on above: Result Comment: ALL RESULTS MUST BE INTERPRETED WITH RESPECT TO BLOOD DRAWING ARTIFACT OR DILUTION ERROR OF ANTICOAGULANT AT THE TIME OF SAMPLING. Performed By: #### [id number] #### [facility] [address] Laboratory Studieson 019 HBV surface Ab Ql (S) Non reactive [facility] Work Phone: Comment on above: Non Reactive: Incons istent with immunity, less than 10 mIU/mL Reactive: Consistent with immunity, greater than 9.9 mIU/mL HBV surface Ag IA Ql Negative [facility] Work Phone: Comment on above: Performed at: [place] [id number] [employer]ing Machine Tender: Arnold Cabral PhD, Phone: [phone] HCV Ab Signal/Cutoff IA RelACnc 0.1 s/co ratio [facility] Work Phone: Hepatitis C Antibody Comment See comment [facility] Work Phone: Comment on above: Non reactive HCV ant ibody screen is consistent with no HCV infection, unless recent infection is suspected or other evidence exists to indicate HCV infection. HIV 1+2 Ab IA Ql Nonreactive [facility] Work Phone: Laboratory Studieson 018 Glucose mass conc Glu2: cleaned meter [facility] Work Phone: Glucose mass conc 121 mg/dL [facility] Work Phone: Comment on above: Random Glucose Refer ence Range is dependent on time and content of last meal. Glucose of more than 200 mg/dL in a nonstressed, ambulatory subject supports the diagnosis of Diabetes Mellitus. Calcium mass conc 8.7 mg/dL 8.2-10.2 [facility] Work Phone: Chloride molar conc 102 mmol/L 95-114 [facility] Work Phone: CO2 molar conc 27.5 mmol/L 22.0-30.0 [facility] Work Phone: Creatinine mass conc 1.08 mg/dL 0.64-1.27 [facility] Work Phone: GFR/1.73 sq M predicted among blacks MDRD vol rate/area (S/P/Bld) mL/min/{1.73_m2} [facility] Work Phone: Comment on above: GFR estimated refere nce range: According to KDOQI guidelines, <60 ml/min/1.73m2 is sufficient to diagnose a patient with chronic kidney disease. GFR/1.73 sq M predicted among non-blacks MDRD vol rate/area (S/P/Bld) mL/min/{1.73_m2} [facility] Work Phone: Glucose mass conc 86 mg/dL 70-100 [facility] Work Phone: Comment on above: ADA recommended refe rence range Random Glucose Reference Range is dependent on time and content of last meal. Glucose of more than 200 mg/dL in a nonstressed, ambulatory subject supports the diagnosis of Diabetes Mellitus. Pharmacy Creatinine Clearance (Chem 88.1842 [facility] Work Phone: Potassium molar conc 3.5 mmol/L 3.5-5.1 [facility] Work Phone: Sodium molar conc 139 mmol/L 136-146 [facility] Work Phone: Urea nitrogen mass conc 10 mg/dL 9-23 [facility] Work Phone: Laboratory Studieson 018 Basophils #/vol (Bld) 0.1 10*3/uL 0.0-0.2 [facility] Work Phone: Basophils/100 WBC (Bld) 1.0 % [facility] Work Phone: Eosinophils #/vol (Bld) 0.2 10*3/uL 0.0-0.45 [facility] Work Phone: Eosinophils/100 WBC (Bld) 2.8 % [facility] Work Phone: Erythrocyte distribution width Ratio (RBC) 13.9 % 12.0-14.8 [facility] Work Phone: Hematocrit Volume Fraction (Bld) 36.3 % Low 38.8-50.0 [facility] Work Phone: Hemoglobin mass conc (Bld) 12.5 g/dL Low 13.0-17.0 [facility] Work Phone: Lymphocytes #/vol (Bld) 1.6 10*3/uL 1.00-4.8 [facility] Work Phone: Lymphocytes/100 WBC (Bld) 23.7 % [facility] Work Phone: MCH Entitic mass (RBC) 28.9 pg 27.5-35.2 [facility] Work Phone: MCHC mass conc (RBC) 34.3 g/dL 32.5-35.6 [facility] Work Phone: MCV Entitic volume (RBC) 84.4 fL 83.5-101 [facility] Work Phone: Monocytes #/vol (Bld) 0.4 10*3/uL 0.0-0.8 [facility] Work Phone: Monocytes/100 WBC (Bld) 6.7 % [facility] Work Phone: Neutrophils #/vol (Bld) 4.4 10*3/uL 1.8-7.7 [facility] Work Phone: Neutrophils/100 WBC (Bld) 65.8 % [facility] Work Phone: Platelet mean volume Entitic volume (Bld) 10.3 fL High 6.6-10.1 [facility] Work Phone: Platelets #/vol (Bld) 199 10*3/uL 150-450 [facility] Work Phone: RBC #/vol (Bld) 4.31 10*6/uL 3.90-5.60 [facility] Work Phone: WBC #/vol (Bld) 6.6 10*3/uL 4.1-10.5 [facility] Work Phone: Laboratory Studieson 018 Appearance Nom (U) Slightly cloudy Abnormal F [facility] Work Phone: Bacteria Auto Ql (U) None seen [facility] Work Phone: Bilirubin Ql (U) Negative [facility] Work Phone: Color Nom (U) Yellow [facility] Work Phone: Creatinine mass conc (U) 143.4 mg/dL [facility] Work Phone: Comment on above: No reference range e stablished Epithelial cells Auto #/area (Urine sed) Rare /HPF [facility] Work Phone: Glucose Automated test strip mass conc (U) Normal mg/dL [facility] Work Phone: Hemoglobin Automated test strip Ql (U) 1+ High [facility] Work Phone: Ketones mass conc (U) 1+ High [facility] Work Phone: Leukocyte esterase Automated test strip Ql (U) Negative [facility] Work Phone: Nitrite Automated test strip Ql (U) Negative [facility] Work Phone: pH (U) 5.5 [pH] 5.0-9.0 [facility] Work Phone: pH (U) [pH] 1.001-1.03 0 [facility] Work Phone: Protein mass conc (U) Negative [facility] Work Phone: RBC Auto #/area (Urine sed) 1-2 /HPF [facility] Work Phone: Sodium molar conc (U) 144.0 mmol/L F [facility] Work Phone: Comment on above: No reference range e stablished Urate crystals LM.HPF #/area (Urine sed) 3 /[HPF] [facility] Work Phone: Urobilinogen mass conc (U) Normal mg/dL [facility] Work Phone: WBC Auto #/area (Urine sed) None seen /HPF [facility] Work Phone: Albumin mass conc 2.7 g/dL Low 3.2-5.5 [facility] Work Phone: Albumin/Globulin mass ratio 0.8 {ratio} [facility] Work Phone: ALP enzyme act/vol 39 U/L 32-92 [facility] Work Phone: ALT No additional P-5'-P enzyme act/vol 14 U/L 10-60 [facility] Work Phone: AST enzyme act/vol 25 U/L 10-42 [facility] Work Phone: Bilirubin mass conc 0.6 mg/dL 0.3-1.2 [facility] Work Phone: Globulin mass conc (S) 3.6 g/dL [facility] Work [facility]: Protein mass conc 6.3 g/dL 6.1-7.9 [facility] Work Phone: Laboratory Studieson 018 T3 free mass conc 3.28 pg/mL 2.50-3.90 [facility] Work Phone: T4 free mass conc 0.95 ng/dL 0.61-1.12 [facility] Work Phone: Amphetamines Ql (U) Negative [facility] Work Phone: Barbiturates Ql (U) Negative [facility] Work Phone: Benzodiazepines Ql (U) Positive [facility] Work Phone: Cannabinoids Screen Ql (U) Negative [facility] Work Phone: Comment on above: These are unconfirme d results and should not be used for legal purposes. Drug Cut-Off Concentration: AMPH 1000 ng/mL EWA 200 ng/mL JOHN 200 ng/mL COCM 300 ng/mL OP 300 ng/mL PCP 25 ng/mL THC 20 ng/mL Cocaine Ql (U) Negative [facility] Work Phone: Opiates Ql (U) Positive [facility] Work Phone: Phencyclidine Ql (U) Negative [facility] Work Phone: Ammonia mass conc (Unsp spec) 20 umol/L 11-35 [facility] Work Phone: Bilirubin.direct mass conc 0.2 mg/dL 0.0-0.4 [facility] Work Phone: Bilirubin.indirect mass conc 0.8 mg/dL [facility] Work Phone: Cobalamin (Vitamin B12) mass conc 365 pg/mL 180-914 [facility] Work Phone: Folate mass conc 12.4 ng/mL [facility] Work Phone: Comment on above: Folate reference ran ge: >5.9 ng/ml The WHO technical consultation on folate and vitamin b12 deficiencies has determined that folate concentrations less than 4 ng/ml are considered deficient. Magnesium molar conc (Unsp spec) 1.7 mg/dL 1.6-2.6 [facility] Work Phone: Thyrotropin Qn 0.20 uIU/mL Low 0.45-5.33 [facility] Work Phone: Comment on above: Revised TSH Assay This assay is standardized to the World Health Organization International Standard for human TSH. Please note Reference Intervals have changed. Laboratory Studieson 018 Casts LM Nom (Urine sed) N/A [facility] Work Phone: Epithelial cells.renal LM.HPF #/area (Urine sed) Rare /HPF [facility] Work Phone: Hyaline casts Auto #/vol (U) 20-49 /LPF High [facility] Work Phone: Lactate molar conc (U) 0.9 mmol/L [facility] Work Phone: CK enzyme act/vol 107 U/L 22-269 [facility] Work Phone: Phosphate mass conc 5.0 mg/dL High 2.5-4.6 [facility] Work Phone: Laboratory Studieson 017 Glucose mass conc 122 mg/dL [facility] Work Phone: Comment on above: RANDOM GLUCOSE REFER ENCE RANGE IS DEPENDENT ON TIME AND CONTENT OF LAST MEAL.GLUCOSE OF MORE THAN 200MG/DL IN A NONSTRESSED,AMBULATORY SUBJECT SUPPORTS THE DIAGNOSIS OF DIABETES MELLITUS. Laboratory Studieson 017 Basophils #/vol (Bld) 0.1 10*3/uL 0.0-0.2 [facility] Work Phone: Basophils/100 WBC (Bld) 0.9 % [facility] Work Phone: Calcium mass conc 8.6 mg/dL 8.2-10.2 [facility] Work Phone: Chloride molar conc 109 mmol/L 95-114 [facility] Work Phone: CK enzyme act/vol 355 U/L High 22-269 [facility] Work Phone: CO2 molar conc 19.5 mmol/L Low 22.0-30.0 [facility] Work Phone: Creatinine mass conc 0.99 mg/dL 0.64-1.27 [facility] Work Phone: Eosinophils #/vol (Bld) 0.20 10*3/uL 0.0-0.45 [facility] Work Phone: Eosinophils/100 WBC (Bld) 3.3 % [facility] Work Phone: Erythrocyte distribution width Ratio (RBC) 13.8 % 12.0-14.8 [facility] Work Phone: Estimated GFR (Non- > 60 [facility] Work Phone: GFR/1.73 sq M.predicted MDRD (S/P/Bld) [Vol rate/Area] mL/min/{1.73_m2} [facility] Comment on above: GFR estimated refere nce range: According to KDOQI guidelines, <60 ml/min/1.73m2 is sufficient to diagnose a patient with chronic kidney disease. GFR/1.73 sq M.predicted MDRD vol rate/area mL/min/{1.73_m2} [facility] Work Phone: Comment on above: GFR estimated refere nce range: According to KDOQI guidelines, <60 ml/min/1.73m2 is sufficient to diagnose a patient with chronic kidney disease. Glucose mass conc 94 mg/dL 70-100 [facility] Work Phone: Comment on above: ADA RECOMMENDED REFE RENCE RANGE Hematocrit Volume Fraction (Bld) 41.5 % 38.8-50.0 [facility] Work Phone: Hemoglobin mass conc (Bld) 14.1 g/dL 13.0-17.0 [facility] Work Phone: Lymphocytes #/vol (Bld) 2.6 10*3/uL 1.00-4.8 [facility] Work Phone: Lymphocytes/100 WBC (Bld) 40.3 % [facility] Work Phone: MCH Entitic mass (RBC) 30.4 pg 27.5-35.2 [facility] Work Phone: MCHC mass conc (RBC) 34.1 g/dL 32.5-35.6 [facility] Work Phone: MCV Entitic volume (RBC) 89.2 fL 83.5-101 [facility] Work Phone: Monocytes #/vol (Bld) 0.4 10*3/uL 0.0-0.8 [facility] Work Phone: Monocytes/100 WBC (Bld) 6.4 % [facility] Work Phone: Neutrophils #/vol (Bld) 3.1 10*3/uL 1.8-7.7 [facility] Work Phone: Neutrophils (%) (Auto) 49.1 % [facility] Work Phone: Neutrophils/100 WBC (Bld) 49.1 % [facility] Platelet mean volume Entitic volume (Bld) 10.7 fL High 6.6-10.1 [facility] Work Phone: Platelets #/vol (Bld) 160 10*3/uL 150-450 [facility] Work Phone: Potassium molar conc 3.4 mmol/L Low 3.5-5.1 [facility] Work Phone: RBC #/vol (Bld) 4.65 10*6/uL 3.90-5.60 [facility] Work Phone: Sodium molar conc 138 mmol/L 136-146 [facility] Work Phone: Urea nitrogen mass conc 7 mg/dL Low 9-23 [facility] Work Phone: WBC #/vol (Bld) 6.4 10*3/uL 4.1-10.5 [facility] Work Phone: Laboratory Studieson 017 Platelet Aggregation (ADP) 57.8 % 0-100 [facility] Work Phone: Comment on above: NO REFERENCE RANGE I S ESTABLISHED OR APPLICABLE Platelet Inhibition ADP 42.2 % 0-100 [facility] Work Phone: Comment on above: NO REFERENCE RANGE I S ESTABLISHED OR APPLICABLE TEG Max Amplitude (Citrated) 69.9 mm 50-70 [facility] Work Phone: TEG Max Amplitude (Rapid) 29.9 0-90 [facility] Work Phone: Comment on above: TEG MA A HAS NO REFE RENCE RANGE Thrombelastograph (TEG) Net G ADP 53.0 MM 0-90 [facility] Work Phone: Comment on above: TEG MA ADP HAS NO RE FERENCE RANGE Albumin mass conc 3.1 g/dL Low 3.2-5.5 [facility] Work Phone: Albumin/Globulin mass ratio 1.0 {ratio} [facility] Work Phone: ALP enzyme act/vol 44 U/L 32-92 [facility] Work Phone: ALT enzyme act/vol 18 U/L 10-60 [facility] Work Phone: AST enzyme act/vol 27 U/L 10-42 [facility] Work Phone: Bilirubin Ql (U) 0.6 mg/dL 0.3-1.2 [facility] Work Phone: Bilirubin.direct mass conc 0.1 mg/dL 0.0-0.4 [facility] Work Phone: Bilirubin.indirect mass conc (Body fld) 0.5 mg/dL [facility] Work Phone: Cholesterol in HDL mass conc 26 mg/dL Low 29-71 [facility] Work Phone: Comment on above: HDL [...] esterol in HDL mass ratio 5.8 {ratio} [facility] Work Phone: Globulin mass conc (S) 3.2 g/dL [facility] Work Phone: LDL Cholesterol, Calculated 93 mg/dL 0-100 [facility] Work Phone: Comment on above: LDL ATP III CLASSIFI CATION LDL less than 100 mg/dL Optimal LDL 100-129 mg/dL Near or above optimal LDL 130-159 mg/dL Borderline high LDL 160-189 mg/dL High LDL greater than 189 mg/dL Very high Protein mass conc 6.3 g/dL 6.1-7.9 [facility] Work Phone: Thyrotropin Qn 1.12 uIU/mL 0.45-5.33 [facility] Work Phone: Comment on above: Revised TSH Assay This assay is standardized to the World Health Organization International Standard for human TSH. Please note Reference Intervals have changed. Triglyceride mass conc 153 mg/dL High 35-149 [facility] Work Phone: Comment on above: TRIG ATP III CLASSIF ICATION TRIG less than 150 mg/dL Normal TRIG 150-199 mg/dL Borderline high TRIG 200-500 mg/dL High TRIG greater than 500 mg/dL Very high Standard traceable to the Center for Disease Conrtrol and Prevention (CDC) test method. Laboratory Studieson 017 Glucose mass conc Glu2: cleaned meter [facility] Work Phone: Ammonia mass conc (P) 19 umol/L 11-35 [facility] Work Phone: Cobalamin (Vitamin B12) mass conc 202 pg/mL 180-914 [facility] Work Phone: Folate 10.7 ng/mL [facility] Work Phone: Comment on above: FOLATE REFERENCE RAN GE: >5.9 ng/mL The WHO Technical Consultation on folate and vitamin B12 deficiencies has determined that folate concentrations less than 4 ng/mL are considered deficient. Amphetamines Ql (U) Negative [facility] Work Phone: Appearance Nom (U) Clear [facility] Work Phone: Bacteria LM.HPF #/area (Urine sed) None seen [facility] Work Phone: Benzodiazepines Ql (U) Positive [facility] Work Phone: Bilirubin Ql (U) Negative [facility] Work Phone: Cocaine Ql (U) Negative [facility] Work Phone: Color Nom (U) Yellow [facility] Work Phone: Epithelial cells.squamous LM.HPF #/area (Urine sed) 5-9 /hpf [facility] Work Phone: Glucose mass conc (U) 250 mg/dL High [facility] Work Phone: Hyaline casts LM Ql (Urine sed) 0-8 /lpf [facility] Work Phone: Ketones Ql (U) Trace [facility] Work Phone: Leukocyte esterase Test strip Ql (U) Negative [facility] Work Phone: Nitrite Ql (U) Negative [facility] Work Phone: Opiates Ql (U) Negative [facility] Work Phone: pH (U) 5.0 [pH] 5.0-9.0 [facility] Work Phone: Phencyclidine Ql (U) Negative [facility] Work Phone: Protein Ql (U) Negative [facility] Work Phone: RBC #/vol (U) 50-100 /hpf [facility] Work Phone: Specific gravity Relative Density (U) 1.039 High 1.001-1.03 0 [facility] Work Phone: Urine Barbiturates Screen Negative [facility] Work Phone: Urine Collection Type Type [facility] Work Phone: Comment on above: CATHETERIZED Urine Drug Screen Comment See comment [facility] Work Phone: Comment on above: THESE ARE UNCONFIRME D RESULTS AND SHOULD NOT BE USED FOR LEGAL PURPOSES. DRUG CUT-OFF CONCENTRATION: AMPH 1000 ng/mL EWA 200 ng/mL JOHN 200 ng/mL COCM 300 ng/mL OP 300 ng/mL PCP 25 ng/mL THC 20 ng/mL Urine Marijuana (THC) Screen Negative [facility] Work Phone: Urine Occult Blood 3+ High [facility] Work Phone: Urine Transitional Epithelial Cells 3-4 /hpf [facility] Work Phone: Urobilinogen Qn (U) Normal mg/dL [facility] Work Phone: WBC #/vol (U) 0-1 /hpf [facility] Work Phone: Bedside Ionized Calcium (Deepti) 1.22 mmol/L 1.12-1.32 [facility] Work Phone: Bedside Total CO2 23 mmol/L 23-29 [facility] Work Phone: Chloride molar conc 110.0 mmol/L High 98-109 [facility] Work Phone: Creatinine mass conc 1.2 mg/dL 0.6-1.3 [facility] Work Phone: Comment on above: ER/ESD PHYSICIAN IS NOTIFIED/SHOWN ALL ISTAT RESULTS. CRITICAL VALUES MAY BE CONFIRMED BY LABORATORY TESTING IF DEEMED NESCESSARY BY ER ATTENDING DOCTOR Glucose mass conc 135 mg/dL High 70-105 [facility] Work Phone: Hematocrit Volume Fraction (Bld) 48.0 % 38.0-51.0 [facility] Work Phone: Hemoglobin mass conc (Bld) 16.3 g/dL 12.0-17.0 [facility] Work Phone: Potassium molar conc 4.7 mmol/L 3.5-4.9 [facility] Work Phone: Sodium molar conc 144 mmol/L 138-146 [facility] Work Phone: Urea nitrogen mass conc 15 mg/dL 8-26 [facility] Work Phone: Amylase enzyme act/vol 39 U/L 28-100 [facility] Work Phone: CK.MB mass conc 9.5 ng/mL High 0.6-6.3 [facility] Work Phone: Creatine Kinase MB Relative Index 1.5 0.00-2.50 [facility] Work Phone: Ethyl Alcohol Level < 5 mg/dL [facility] Work Phone: Glucose mass conc 140 mg/dL High 70-100 [facility] Work Phone: Comment on above: RANDOM GLUCOSE REFER ENCE RANGE IS DEPENDENT ON TIME AND CONTENT OF LAST MEAL.GLUCOSE OF MORE THAN 200MG/DL IN A NONSTRESSED,AMBULATORY SUBJECT SUPPORTS THE DIAGNOSIS OF DIABETES MELLITUS. Lipase enzyme act/vol 22.0 U/L 22-51 [facility] Work Phone: Percent Ethyl Alcohol < 0.005 % [facility] Work Phone: Troponin I.cardiac mass conc ng/mL 0-0.02 [facility] Work Phone: Comment on above: DAMAR[place] Cut off value > or equal to 0.03 ng/mL in conjunction with clinical conditions of myocardial infarction. (www.escardio.org/guidelines) Glucose mass conc 134 mg/dL [facility] Work Phone: Hemoglobin A1c/Hemoglobin.total mass fraction (Bld) 6.3 % High 4.3-5.6 [facility] Work Phone: Comment on above: Increased risk for d iabetes: 5.7 - 6.4 Diabetes: >6.4 Glycemic control for adults with diabetes: <7.0 Vital Signs Date Time Vital Sign Value Performing Clinician Facility 11-05-2022 14:30-0500 Diastolic blood pressure 72 mm[Hg] [address] Other [employer] [facility] [employer] Other 11-05-2022 14:30-0500 SaO2% (BldA) [Mass fraction] 97 % [address] Other [facility] Other 11-05-2022 14:30-0500 Systolic blood pressure 118 mm[Hg] [address] Other [facility] Other 10-18-2022 14:00-0500 Body weight 96.[address] Other [facility] Other 10-18-2022 14:00-0500 Diastolic blood pressure 64 mm[Hg] [address] Other [employer] [facility] [employer] Other 10-18-2022 14:00-0500 SaO2% (BldA) [Mass fraction] 98 % [address] Other [facility] [employer] Other 10-18-2022 14:00-0500 Systolic blood pressure 120 mm[Hg] [address] Other [facility] [employer] Other 07-20-2022 16:00-0500 Body temperature 97.4 [degF] MD Genesis Reynolds Work Phone: [facility] 07-20-2022 16:00-0500 Diastolic blood pressure 72 mm[Hg] MD Genesis Reynolds Work Phone: [facility] 07-20-2022 16:00-0500 Heart rate 61 /min MD Genesis Reynolds Work Phone: [facility] 07-20-2022 16:00-0500 Respiratory rate 16 /min MD Genesis Reynolds Work Phone: [facility] 07-20-2022 16:00-0500 SaO2% (BldA) [Mass fraction] 98 % MD Genesis Reynolds Work Phone: [facility] 07-20-2022 16:00-0500 Systolic blood pressure 159 mm[Hg] MD Genesis Reynolds Work Phone: [facility] 07-20-2022 06:00-0500 Body weight 95.3 kg MD Genesis Reynolsd Work Phone: [facility] 07-18-2022 11:22-0500 Body height 177.8 cm MD Genesis Reynolds Work Phone: [facility] 07-17-2022 22:14-0500 Body height 177.8 cm MD Genesis Reynolds Work Phone: [facility] 07-17-2022 22:14-0500 Body temperature 97.5 [degF] MD Genesis Reynolds Work Phone: [facility] 07-17-2022 22:14-0500 Body weight 95.9 kg MD Genesis Reynolds Work Phone: [facility] 07-17-2022 22:14-0500 Diastolic blood pressure 87 mm[Hg] MD Genesis Reynolds Work Phone: [facility] 07-17-2022 22:14-0500 Heart rate 74 /min MD Genesis Reynolds Work Phone: [facility] 07-17-2022 22:14-0500 Respiratory rate 16 /min MD Genesis Reynolds Work Phone: [facility] 07-17-2022 22:14-0500 SaO2% (BldA) [Mass fraction] 99 % MD Genesis Reynolds Work Phone: [facility] 07-17-2022 22:14-0500 Systolic blood pressure 180 mm[Hg] MD Genesis Reynolds Work Phone: [facility] 02-13-2018 14:12-0400 Body Temperature 98 [degF] [facility] 14:12-0400 BP Diastolic 74 mm[Hg] Bro [facility] 02-13-2018 14:12-0400 BP Systolic 113 mm[Hg] Bro [facility] 02-13-2018 14:12-0400 Pulse Oximetry 95 % Bro [facility] 02-13-2018 14:12-0400 Respiratory Rate 18 /[facility] 22:00-0400 Pulse (Heart Rate) 73 /min Bro Aj [facility] Body weight [facility] Weight Bro Aj Re [facility] NEGATED: Highlighted row BMI (Body Mass Index) [facility] NEGATED: Highlighted row BMI (Body Mass Index) [facility] NEGATED: Highlighted row Height [facility] NEGATED: Highlighted row Height Bro [facility] Encounters Encounter Date Encounter Type Care Provider Facility Start: 11-10-2023 End: 11-11-2023 ambulatory SUSAN SANDRA [facility] Start: 11-10-2023 End: 11-10-2023 Subsequent hospital visit by physician Bro Sanford MD Work Phone: [facility] Start: 04-26-2023 End: 04-27-2023 ambulatory JUDY HURT [facility] Start: 04-25-2023 End: 04-26-2023 Emergency department patient visit BRO PRATHER [facility] Start: 04-19-2023 ambulatory Danilo Hayes [facility] Start: 01-17-2023 End: 01-17-[address] GENESIS REYNOLDS . Facility:[facility] Start: 12-06-2022 End: 12-06-[address] Other [facility] Other Start: 12-06-2022 Telephone encounter [facility] Start: 11-15-2022 End: 11-17-2022 Evaluation and management of inpatient DR GENESIS REYNOLDS . Facility:[facility] Start: 11-13-2022 End: 11-13-[address] Other [facility] Other Start: 11-13-[address] [facility] Start: 11-05-2022 End: 11-05-[address] Other [facility] Other Start: 11-05-2022 Office outpatient vi sit [address] [facility] Start: 11-01-2022 End: 11-01-2022 ambulatory Genesis Reynolds Facility:[facility] Start: 11-01-2022 End: 11-01-2022 ambulatory MD Genesis Reynolds Work Phone: [facility] Work Phone: Start: 11-01-2022 End: 11-01-2022 Patient encounter procedure MD Genesis Reynolds Work Phone: [facility]-X[facility] [place] Work Phone: Start: 10-26-2022 End: 10-27-[address] GENESIS REYNOLDS . Facility:[facility] Start: 10-25-2022 (PROC) [facility] Start: 10-25-2022 End: 10-26-[address] GENESIS REYNOLDS . [facility] Other Start: 10-18-2022 End: 10-18-[address] Other [facility] Other Start: 10-18-2022 Office outpatient ne w [...] of inpatient MD Genesis Reynolds Work Phone: [facility] [place] [facility] Start: 07-17-2022 End: 07-20-2022 observation encounter MD Genesis Reynolds Work Phone: [facility] Work Phone: Start: 07-15-2022 End: 07-16-[address] GENESIS REYNOLDS . Facility:[facility] Start: 06-21-2022 End: 06-22-[address] GENESIS REYNOLDS . Facility:[facility] Start: 05-13-2022 End: 05-16-2022 Evaluation and management of inpatient DR GENESIS REYNOLDS . Facility:[facility] Start: 05-07-[address] GENESIS REYNOLDS . Facili ty:[facility] Start: 12-17-2019 Preoperative state MD Genesis Reynolds Work Phone: [facility] Start: 12-24-2018 End: 12-24-2018 Patient encounter procedure [facility] Start: 02-08-2018 End: 02-13-2018 Evaluation and management of inpatient [facility] Start: 01-12-2018 End: 01-17-2018 Evaluation and management of inpatient Bro [facility] Start: 04-02-2017 End: 04-05-2017 Evaluation and management of inpatient [facility] Start: 06-09-2006 End: 07-09-2006 Discharged Recurring [facility] Start: 04-09-2006 End: 05-09-2006 Discharged Recurring [facility] Start: 03-09-2006 End: 04-08-2006 Discharged Recurring Bro [facility] Start: 02-22-2006 End: 03-08-2006 Discharged Recurring Bro [facility] Start: 02-10-2006 End: 02-14-2006 Evaluation and management of inpatient [facility] Start: 05-10-2000 End: 06-08-2000 Discharged Recurring [facility] Start: 04-09-2000 End: 05-09-2000 [facility] Start: 03-09-2000 End: 04-08-2000 [facility] Start: 02-08-2000 End: 03-08-2000 [facility] Start: 01-08-2000 End: 02-07-2000 [facility]charged [facility] Start: 12-09-1999 End: 02-07-2000 Discharged [facility] Start: 11-08-1999 End: 12-08-1999 [facility]charged [facility] Start: 10-10-1999 End: 11-07-1999 [facility]charged [facility] Start: 09-09-1999 End: 10-09-1999 Discharged [facility] Start: 08-09-1999 End: 10-09-1999 Discharged [facility] Start: 07-10-1999 End: 08-08-1999 Discharged [facility] Start: 06-26-1999 End: 07-09-1999 Discharged [facility] Start: 03-29-1998 End: 03-29-1998 Patient encounter procedure Bro [facility] Start: 02-24-1987 End: 02-28-1987 Evaluation and management of inpatient Bro [facility] Start: 12-22-1986 End: 12-23-1986 Evaluation and management of inpatient Bro [facility] Procedures Date Procedure Procedure Detail Performing Clinician Start: 11-10-2023 Urnls dip stick/tabl et reagent auto microscopy Susan Sandra PLANNING DIRECTOR - SURVEILLANCE SYSTEMS ANALYST Work Phone: Start: 11-01-2022 X-ray of lumbar [...] - Tdap) DTaP/Tdap/Td vaccine (2 - Tdap) [employer] Start: 04-26-2024 Lipid panel Lipids [facility] [employer] Start: 04-25-2024 GFR test (Diabetes, CKD 3-4, OR last GFR 15-59) GFR test (Diabetes, CKD 3-4, OR last GFR 15-59) [employer] Start: 08-05-2023 Annual Wellness Visi t (Medicare) Annual Wellness Visit (Medicare) [employer] Start: 05-10-2023 COVID-19 Vaccine ( season) COVID-19 Vaccine ( season) [employer] Start: 04-09-2023 Influenza vaccination Flu vaccine (# 1) [facility] [employer] Start: 07-20-2022 [facility] Start: 07-18-2022 Lipid panel [facility] Start: 07-17-2022 Hospital admission [facility] Start: 07-17-2022 Physical therapy procedure [facility] Start: 07-17-2022 Referral to order builder [facility] Start: 07-17-2022 Referral to occupati onal therapist [facility] Start: 07-17-2022 [facility] Start: 07-17-2022 [facility] Start: 2021 Abdominal aortic aneurysm screening AAA screen [facility] [employer] Start: 01-24-2021 Pneumococcal 65+ yea rs Vaccine (2 - PPSV23 or PCV20) Pneumococcal 65+ years Vaccine (2 - PPSV23 or PCV20) [facility] [employer] Start: 2016 Respiratory Syncytia l Virus (RSV) or age 60 yrs+ (1 - 1-dose 60+ series) Respiratory Syncytial Virus (RSV) or age 60 yrs+ (1 - 1-dose 60+ series) [facility] [employer] Start: 2006 Screening for malign ant neoplasm of lung Low dose CT lung screening &/or counseling [facility] [employer] Start: 2006 Shingles vaccine (1 of 2) Shingles vaccine (1 of 2) [facility] [employer] Start: 2001 Screening for malign ant neoplasm of colon [facility] [employer] Start: 1974 Glaucoma screening Diabetic retinal exam [facility] [employer] Start: 1974 Hepatitis C screening Hepatitis C sc reen [facility] [employer] Start: 1974 Urine screening for protein Diabetic Alb to Cr ratio (uACR) test [facility] [employer] Start: 1968 Depression Screen Depression Screen [facility] [employer] Start: 1966 Diabetic foot examination Diabetic foot exam [facility] [employer] Start: 1966 Hemoglobin A1c measurement A1C test (Diabetic or Prediabetic) [facility] [employer] Bacteria identified in Blood by Culture Blood Culture [facility] Blood culture for bacteria, including anaerobic screen Blood Culture [facility] End: 11-10-2023 Culture, Urine [facility] Work Phone: Comment on above: Once for 1 Occurrenc es starting 11/10/2023 until 11/10/2023 Patient referral [facility] Work Phone: [facility] Payers Date Payer Category Payer Self-pay 1958 Medicare [id number] 1958 Unknown [id number] 1955 Unknown [id number] 2.16.84 0.1.703597.3.579.2.593 1956 Unknown [id number] 2.16.84 0.1.768388.3.579.2.593 1956 Unknown [id number] 2.16.84 0.1.050625.3.579.2.593 1956 Unknown [id number] 2.16.84 0.1.150534.3.579.2.593 1956 Unknown [id number] 2.16.84 0.1.325983.3.579.2.593 1956 Unknown [id number] 2.16.84 0.1.167351.3.579.2.593 1956 Unknown [id number] 2.16.84 0.1.211407.3.579.2.593 1956 Unknown [id number] 2.16.84 0.1.419289.3.579.2.593 1956 Unknown [id number] 2.16.84 0.1.467914.3.579.2.593 1956 Unknown [id number] 2.16.84 0.1.273802.3.579.2.593 1956 Unknown [id number] 2.16. 840.1.572843.3.579.2.356 1956 Unknown [id number] 2.16. 840.1.979114.3.579.2.356 1956 Unknown [id number] 2.16. 840.1.741142.3.579.2.356 1956 Unknown [id number] 2.16. 840.1.248166.3.579.2.356 1956 Unknown [id number] 2.16. 840.1.453728.3.579.2.356 1956 Unknown [id number] 2.16. 840.1.451800.3.579.2.356 1955 Unknown [id number] 2.16.8 40.1.459722.3.579.2.173 Unknown [id number] Unknown [facility] [employer] [id number] Unknown [id number] 2.16.8 40.1.503323.3.579.2.531 Unknown [id number] 2.16.8 40.1.313728.3.579.2.531 Social History Date Type Detail Facility Start: 07-17-2022 End: 07-18-2022 Tobacco smoking status VTIS Smoker (finding) [facility] Start: 1955 Sex Assigned At Male F [facility] Start: 04-25-2023 Sex Assigned At [facility] Other Start: 12-26-2016 Tobacco smoking stat us [facility] Smokes tobacco daily [facility] [employer] History of tobacco use Cigarette Smoker B [facility] [employer] Start: 12-26-2016 End: 04-25-2023 Cigarettes smoked current (pack per day) - Reported 1.5 [facility] [employer] Start: 12-26-2016 Tobacco use and exposure Smokeless tobacco non-user [facility] [employer] Start: 04-25-2023 Alcohol intake 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) [facility] Start: 1955 Sex Assigned At Not on file B [facility] Medical Equipment Procedure Code Equipment Code Equipment Origin al Text Equipment Identifier Dates [id number] Start: 12-24-2018 End: 04-11-2019 Glucose test strips Start : 12-24-2018 End: 04-10-2019 Glucose test strips Start : 12-24-2018 End: 04-10-2019 Glucose test strips Start : 12-24-2018 End: 04-10-2019 Goals Date Patient Goal Desired Activity /State Functional Status Date Assessment Result Facility 07-20-2022 Functional status Patient at Baseline [facility] Work Phone: Mental Status Date Assessment Result Facility 07-20-2022 Cognitive function Cognitive Sta tus Patient at Baseline [facility] Work Phone: Clinical Notes 2018 to [...] (ICD-10 - G89.29) Follow up after procedure. [facility] Other 02-09-2023 Evaluation note* Encounter Date Diagnosis [...] cant remember who the surgeon was in [place]. He presents with his today, both the [...] negative findings were considered in medical decision-making. [facility] Other 11-11-2022 Discharge summary Author Sang [facility] July 20, 2022 6:39pm Note Date/Time July 20, 2022 3:04pm [facility] [address] [place] [address] Discharge Summary Signed Patient: Taylor Mcclellan MR#: [id number] : 1955 Acct:[id number] Age/Sex: 66 / M Adm Date: 2 Loc: Room: [address] [place] [address]: Sang Bauer MD Copies to: [...] affect Discharge Plan Discharge Plan Patient Disposition: Correction Facility Activity: No Activity Restriction Diet: Low-Sodium [...] tablet 75 mg PO DAILY Discontinued hydrocodone-acetaminophen [O[place]urst] 5-325 mg tablet 1 tab PO BID PRN (Reason: Pain) Qty: 0 0RF Other Ambulatory Orders: DME Home Medical Equipment (Routine) Timeframe: 20220720 Location: Determined by Patient Ordered By: Sang Bauer Follow Up: Lilia Hopper APRN [Nurse Practitioner] - 08/22/22 10:30 am Documented By: Sang Bauer MD 07/20/22 0663 Signed By: <Electronically signed by Sang Bauer MD> 07/20/22 0525 [facility] Work Phone: 1(870) 936-757911-11-2022 Progress note Author Itzel [facility] July 20, 2022 8:06am Note Date/Time July 20, 2022 8:06am [facility] [address] [place] [address] Cardiology Progress Note Signed Patient: Taylor Mcclellan SR MR#: [id number] : 1955 Acct:[id number] Age/Sex: 66 / M Adm Date: 2 Loc: Room: [address] [place] [address] Type: ADM INOo Attending Dr: Sang Bauer [...] it is a single-vessel bypass done in [place] record is not available patient and his cannot remember which hospital he had his surgery at. He does not follow with cardiology Qualifiers: Coronary Disease-Associated Artery/Lesion type: conf[place] artery Marshall vs. transplanted heart: [place] heart Associated angina: without angina Qualified Code(s): I25.10 - Atherosclerotic heart disease of conf[place] coronary artery without angina pectoris Code(s): I25.10 - Atherosclerotic heart disease of [place] coronary artery without angina pectoris Status: Acute [...] <Electronically signed by MD Itzel Adams> 07/20/22805 [facility] Work Phone: [phone]) 674-810511-10-2022 Progress note Author Sang [facility] July 19, 2022 4:57pm Note Date/Time July 19, 2022 4:57pm [facility] [address] [place] [address] Hospitalist Progress Note Signed Patient: Taylor Mcclellan MR#: [id number] : 1955 Acct:[id number] Age/Sex: 66 / M Adm Date: 2 Loc: 3T Room: [address] [place] [address] Type: ADM INOo Attending Dr: Sang Bauer [...] Insuln.Pen SUBCUT 07/17/23 21:59 Not Given TID.WM.HS [facility] Protocol Lamotrigine 100 mg 07/18/22 12:00 07/19/22 [...] <Electronically signed by Sang Bauer MD> 07/19/22 091 [facility] Work Phone: 1(922) 749-248711-10-2022 Progress note Author Itzel [facility] July 19, 2022 8:35am Note Date/Time July 19, 2022 8:35am [facility] [address] [place] [address] Cardiology Progress Note Signed Patient: Taylor Mcclellan MR#: [id number] : 1955 Acct:[id number] Age/Sex: 66 / M Adm Date: 2 Loc: Room: [address] [place] [address] Type: ADM INOo Attending Dr: Sang Bauer [...] it is a single-vessel bypass done in [place] record is not available patient and his cannot remember which hospital he had his surgery at. He does not follow with cardiology Qualifiers: Coronary Disease-Associated Artery/Lesion type: [place] artery Marshall vs. transplanted heart: conf[place] heart Associated angina: without angina Qualified Code(s): I25.10 - Atherosclerotic heart disease of [place] coronary artery without angina pectoris Code(s): I25.10 - Atherosclerotic heart disease of conf[place] coronary artery without angina pectoris Status: Acute [...] <Electronically signed by MD Itzel Adams> 07/19/2235 [facility] Work Phone: 1([phone]) 214-607411-09-2022 Progress note Author Sang [facility] July 18, 2022 3:24pm Note Date/Time July 18, 2022 3 :24pm [facility] [address] [place] [address] Hospitalist Progress Note Signed Patient: Taylor Mcclellan SR MR#: [id number] : 1955 Acct:[id number] Age/Sex: 66 / M Adm Date: 2 Loc: Room: [address] [place] [address] Type: ADM INOo Attending Dr: Sang Bauer [...] 25 Mg Tablet PO 07/18/23 13:59 TID [facility] Insulin Aspart 0 units 07/17/22 22:00 07/18/22 11:48 Insulin Aspart 300 Units/3 Ml Insuln.Pen SUBCUT 07/17/23 21:59 Not Given TID.[facility] Protocol Lamotrigine 100 mg 07/18/22 12:00 [...] 11:15 Brexpiprazole [Rexulti] PO 07/18/23 11:14 1XD [facility] Ondansetron HCl 4 mg 07/17/22 18:33 Ondansetron [...] signed by Sang Bauer MD> 07/18/22 1524 [facility] Work Phone: 1(281) 112-497911-09-2022 History and physical note Author Sang [facility] July 18, 2022 3:22pm Note Date/Time July 17, 2022 6 :41pm [facility] [address] [place] [address] Hospitalist H&P Signed Patient: Taylor Mcclellan MR#: [id number] : 1955 Acct:[id number] Age/Sex: 66 / M Adm Date: 2 Loc: Room: [address] [place] [address] Type: ADM INOo Attending Dr: Sang Bauer [...] at home. Reportedly patient was taken to [facility] couple days ago when he was [...] his live in a mobile home in [place]. Meds Medications and Allergies Allergies chlordiazepoxide [From [...] 07/17/22] hydrocodone 5 mg-acetaminophen 325 mg tablet ([place]) 1 tab PO BID PRN Pain #0 [...] % (Auto) 29.5 % (.) 07/17/22 15:44 Storey % (Auto) 5.4 % (.) 07/17/22 15:44 Eos % (Auto) 0.7 % (.) 07/17/22 15:44 Baso % (Auto) 1.0 % (.) 07/17/22 15:44 Neut # (Auto) 4.9 x10E3/uL (1.8-7.7) 07/17/22 15:44 Lymph # (Auto) 2.3 x10E3/uL (1.00-4.8) 07/17/22 15:44 Storey # (Auto) 0.4 x10E3/uL (0.0-0.8) 07/17/22 15:44 [...] 07/17/22 1838 Signed By: <Electronically signed by aSng Bauer MD> 07/18/22 [facility] Work Phone: 1(296) 956-111611-09-2022 Consult note Author Itzel [facility] July 18, 2022 11:46am Note Date/Time July 18, 2022 1 1:43am [facility] [address] [place] [address] Cardiology Consult Note Signed Patient: Taylor Mcclellan MR#: [id number] : 1955 Acct:[id number] Age/Sex: 66 / M Adm Date: 2 Loc: Room: [address] [place] [address] Type: ADM INOo Attending Dr: Sang Bauer MD Copies to: MD Genesis Goetz MD Mourhaf A Traboulssi, MD~ Cardiology HPI History of Present Illness Consult Date: 07/18/22 Reason for Consult: Chest pain HPI: Mr. Mcclellan is a 66 year old male with known history of coronary artery disease and prior bypass surgery done in [place]. No records available. Patient report to have [...] his live in a mobile home in [place]. Meds Medications and Allergies Allergies chlordiazepoxide [From [...] 07/17/22] hydrocodone 5 mg-acetaminophen 325 mg tablet ([place]) 1 tab PO BID PRN Pain #0 [...] 07/17/22 15:44 Lab results: Cardiac Enzymes 07/17/22 07/17/2207/17/22 Range/Units 15:44 15:44 20:29 AST 15 (10-42) [...] x10E3/uL Lymph # (Auto) 2.3 (1.00-4.8) x10E3/uL Storey # (Auto) 0.4 (0.0-0.8) x10E3/uL Eos # [...] @ 100 mls/hr IV ONCE ONE Rx #:[id number] Oral 0 / 0 50 / 50 [...] it is a single-vessel bypass done in [place] record is not available patient and his cannot remember which hospital he had his surgery at. He does not follow with cardiology Qualifiers: Coronary Disease-Associated Artery/Lesion type: conf[place] artery Marshall vs. transplanted heart: conf[place] heart Associated angina: without angina Qualified Code(s): I25.10 - Atherosclerotic heart disease of conf[place] coronary artery without angina pectoris Code(s): I25.10 - Atherosclerotic heart disease of conf[place] coronary artery without angina pectoris (3) Hx [...] signed by MD Itzel Adams> 07/18/22 1146 [facility] Work Phone: 1(323) 630-585111-08-2022 History and physical note Author Sang [facility] July 18, 2022 3:22pm Note Date/Time July 17, 2022 6 :41pm [facility] [address] [place] [address] Hospitalist H&P Signed Patient: Taylor Mcclellan SR MR#: [id number] : 1955 Acct:[id number] Age/Sex: 66 / M Adm Date: 2 Loc: Room: [address] [place] [address] Type: ADM INOo Attending Dr: Sang Bauer [...] at home. Reportedly patient was taken to [facility] couple days ago when he was [...] his live in a mobile home in [place]. Meds Medications and Allergies Allergies chlordiazepoxide [From [...] 07/17/22] hydrocodone 5 mg-acetaminophen 325 mg tablet ([place]) 1 tab PO BID PRN Pain #0 [...] % (Auto) 29.5 % (.) 07/17/22 15:44 Storey % (Auto) 5.4 % (.) 07/17/22 15:44 Eos % (Auto) 0.7 % (.) 07/17/22 15:44 Baso % (Auto) 1.0 % (.) 07/17/22 15:44 Neut # (Auto) 4.9 x10E3/uL (1.8-7.7) 07/17/22 15:44 Lymph # (Auto) 2.3 x10E3/uL (1.00-4.8) 07/17/22 15:44 Storey # (Auto) 0.4 x10E3/uL (0.0-0.8) 07/17/22 15:44 [...] <Electronically signed by Sang Bauer MD> 07/18/22 [facility] Work Phone: 1([phone]) 224-697801-07-2019 Consult note Author Itzel [facility] July 18, 2022 11:46am Note Date/Time July 18, 2022 1 1:43am [facility] [address] [place] [address] Cardiology Consult Note Signed Patient: Taylor Mcclellan MR#: [id number] : 1955 Acct:[id number] Age/Sex: 66 / M Adm Date: 2 Loc: Room: [address] [place] [address] Type: ADM INOo Attending Dr: Sang Bauer MD Copies to: MD Genesis Goetz MD Mourhaf A Traboulssi, MD~ Cardiology HPI History of Present Illness Consult Date: 07/18/22 Reason for Consult: Chest pain HPI: Mr. Mcclellan is a 66 year old male with known history of coronary artery disease and prior bypass surgery done in [place]. No records available. Patient report to have [...] his live in a mobile home in [place]. Meds Medications and Allergies Allergies chlordiazepoxide [From [...] 07/17/22] hydrocodone 5 mg-acetaminophen 325 mg tablet ([place]) 1 tab PO BID PRN Pain #0 [...] x10E3/uL Lymph # (Auto) 2.3 (1.00-4.8) x10E3/uL Storey # (Auto) 0.4 (0.0-0.8) x10E3/uL Eos # [...] @ 100 mls/hr IV ONCE ONE Rx #:[id number] Oral 0 / 0 50 / 50 [...] it is a single-vessel bypass done in [place] record is not available patient and his cannot remember which hospital he had his surgery at. He does not follow with cardiology Qualifiers: Coronary Disease-Associated Artery/Lesion type: [place] artery Marshall vs. transplanted heart: [place] heart Associated angina: without angina Qualified Code(s): I25.10 - Atherosclerotic heart disease of conf[place] coronary artery without angina pectoris Code(s): I25.10 - Atherosclerotic heart disease of [place] coronary artery without angina pectoris (3) Hx [...] signed by MD Itzel Adams> 07/18/22 1146 [facility] Work Phone: Discharge summary Author Sang [facility] July 20, 2022 6:39pm Note Date/Time July 20, 2022 3:04pm [facility] [address] [place] [address] Discharge Summary Signed Patient: Taylor Mcclellan SR MR#: [id number] : 1955 Acct:[id number] Age/Sex: 66 / M Adm Date: 2 Loc: Room: [address] [place] [address]: Sang Bauer MD Copies to: [...] affect Discharge Plan Discharge Plan Patient Disposition: Correction Facility Activity: No Activity Restriction Diet: Low-Sodium [...] tablet 75 mg PO DAILY Discontinued hydrocodone-acetaminophen [[place]] 5-325 mg tablet 1 tab PO BID PRN (Reason: Pain) Qty: 0 0RF Other Ambulatory Orders: DME Home Medical Equipment (Routine) Timeframe: 20220720 Location: Determined by Patient Ordered By: Sang Bauer Follow Up: Lilia Hopper APRN [Nurse Practitioner] - 08/22/22 10:30 am Documented By: Sang Bauer MD 07/20/22 1504 Signed By: <Electronically signed by Sang Bauer MD> 07/20/22 4767 [facility] Work Phone: Evaluation note* Diagnosis Onset Date Resolution Status Chest pain acute Coronary artery disease acut e Generalized weakness acute Hx of CABG acute Diabetes mellitus chronic HTN (hypertension) chronic [facility] Work Phone: Evaluation note* Diagnosis Onset Date Resolution Status Bipolar 1 disorder, depressed, severe acute Chest pain acute Coronary artery disease acut e Generalized weakness acute Hx of CABG acute Chronic back pain chronic Diabetes mellitus chronic HTN (hypertension) chronic [facility] Work Phone: Evaluation noteNo assessment information available [facility] Work Phone: Evaluation noteNo [facility] [employer] Other History general Narrative - Reported* Type Description Date Medical History CABG Medical History BPH Medical History HTN Medical History Diabetes Medical History HLD Medical History lumbosacral spondylosis Medical History lumbar neuritis Medical History disorder of sacrum Surgical History previous back surgery Surgical History heart valve replacement Surgical History CABG Hospitalization History see above [place] [facility] Other Hospital Discharge instructions Additional Instructions SNF TO MANAGE: PT/OT to eval and treat Monitor VS per protocol--HTN Monitor FSBS Maintain high risk fall precautions Care [facility] be [facility] Work Phone: Progress note Author Sang [facility] July 18, 2022 3:24pm Note Date/Time July 18, 2022 3 :24pm [facility] [address] [place] [address] Hospitalist Progress Note Signed Patient: Taylor Mcclellan MR#: [id number] : 1955 Acct:[id number] Age/Sex: 66 / M Adm Date: 2 Loc: Room: [address] [place] [address] Type: ADM INOo Attending Dr: Sang Bauer [...] Insuln.Pen SUBCUT 07/17/23 21:59 Not Given TID.WM.HS [facility] Protocol Lamotrigine 100 mg 07/18/22 12:00 [...] full code Documented By: Sang Bauer MD 07/18/22 152 Signed By: <Electronically signed by Sang Bauer MD> 07/18/22 1524 [facility] Work Phone: Progress note Author [facility] July 19, 2022 8:35am Note Date/Time July 19, 2022 8:35am [facility] [address] [place] [address] Cardiology Progress Note Signed Patient: Taylor Mcclellan SR MR#: [id number] : 1955 Acct:[id number] Age/Sex: 66 / M Adm Date: 2 Loc: Room: [address] [place] [address] Type: ADM INOo Attending Dr: Sang Bauer [...] it is a single-vessel bypass done in [place] record is not available patient and his cannot remember which hospital he had his surgery at. He does not follow with cardiology Qualifiers: Coronary Disease-Associated Artery/Lesion type: [place] artery [place] vs. transplanted heart: [place] heart Associated angina: without angina Qualified Code(s): I25.10 - Atherosclerotic heart disease of [place] coronary artery without angina pectoris Code(s): I25.10 - Atherosclerotic heart disease of [place] coronary artery without angina pectoris Status: Acute [...] <Electronically signed by MD Itzel Adams> 07/19/22834 [facility] Work Phone: Progress note Author [facility] July 19, 2022 4:57pm Note Date/Time July 19, 2022 4:57pm [facility] [address] [place] [address] Hospitalist Progress Note Signed Patient: Taylor Mcclellan SR MR#: [id number] : 1955 Acct:[id number] Age/Sex: 66 / M Adm Date: 2 Loc: Room: [address] [place] [address] Type: ADM INOo Attending Dr: Sang Bauer [...] code Documented By: Sang Bauer MD 07/19/22 695 Signed By: <Electronically signed by Sang Bauer MD> 07/19/22 2150 [facility] Work Phone: Progress note Author [facility] July 20, 2022 8:06am Note Date/Time July 20, 2022 8:06am [facility] [address] [place] [address] Cardiology Progress Note Signed Patient: Taylor Mcclellan SR MR#: [id number] : 1955 Acct:[id number] Age/Sex: 66 / M Adm Date: 2 Loc: 3T Room: [address] [place] [address] Type: ADM INOo Attending Dr: Sang Bauer [...] it is a single-vessel bypass done in [place] record is not available patient and his cannot remember which hospital he had his surgery at. He does not follow with cardiology Qualifiers: Coronary Disease-Associated Artery/Lesion type: [place] artery [place] vs. transplanted heart: [place] heart Associated angina: without angina Qualified Code(s): I25.10 - Atherosclerotic heart disease of [place] coronary artery without angina pectoris Code(s): I25.10 - Atherosclerotic heart disease of [place] coronary artery without angina pectoris Status: Acute [...] <Electronically signed by MD Itzel Adams> 07/20/22805 [facility] Work Phone: Summary Purpose Family History [...] section and content) DATE CREATED AUTHOR 10/15/2019 [facility] DATE CREATED AUTHOR AUTHOR'S ORGANIZ ATION [facility]2021 [facility] DATE CREATED AUTHOR AUTHOR'S ORGANIZ ATION 01/21/2023 [facility] DATE CREATED AUTHOR AUTHOR'S ORGANIZ ATION 01/23/2023 [facility] DATE CREATED AUTHOR AUTHOR'S ORGANIZ ATION 08/18/2023 [facility] DATE CREATED AUTHOR AUTHOR'S ORGANIZ ATION 11/11/2023 [facility] Care Teams (unrecognized sec tion and content) Team Status: Active Member Role Status Dates Genesis Reynolds MD Primary Care Provider Active Segundo Huston MD Emergency Provider Active Sang Bauer MD Admit Provider, Attending Provider A stefania Mckeon RN Other Provider Active Lawrence Lee DO Other Provider Active Kaden Summers MD Other Provider Active Edinson Bustamante MD Other Provider Active Itzel Admas MD Other Provider Active Ramos Fraga MD Other Provider Active Lilia Orourke APRN Other Provider Active Cinthia Rae MD Other Provider Active Ramón Ayala MD Other Provider Active Flavio Ramirez MD Other Provider Active Pily Winslow [facility] Other Provider Active Adelaide Leonardo MD Other Provider Active Team Status: Active Member Role Status Dates Genesis Reynolds MD Primary Care Provider Active Team Status: Inactive Member Role Status Dates Genesis Reynolds MD Primary Care Provider Active Segundo Huston MD Emergency Provider Active Sang Bauer MD Admit Provider, Attending Provider A stefania Adams MD Referring Provider Active Team Status: Inactive Member Role Status Sabrina Reynolds MD Primary Care Provider Active Benson Lane MD Attending Provider Active Financial Services Education Consultant Relationship 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 [employer] provides no warranty or guarantee of the accuracy or completeness of information in this document.
[2024-02-11] MEDS: REGADENOSON 0.4 MG/5 ML SYRINGE 0.400000000000000022 MG IV (09:16)
--- NOTE | 2024-02-11 16:18 | PM.STRESS ---
Stress Test Stress Test Allergies Allergy/AdvReac Type Severity Reaction Status Date / Time amitriptyline Allergy Verified 11/05/23 23:51 citalopram Allergy Verified 11/05/23 23:51 fentanyl Allergy Verified 11/05/23 23:51 simvastatin [From Zocor] Allergy Verified 11/05/23 23:51 succinylcholine Allergy Verified 11/05/23 23:51 venlafaxine [From Effexor] Allergy Verified 11/05/23 23:51 Requesting physician: Norbert Jiang Procedure: Lexiscan Cardiolite stress test General Information: Reason for Stress Test: Pre-op evaluation Cardiac History and Risk Factors: CAD, s/p CABG Resting 12 - Lead Electrocardiogram: Rate & rhythm: Sinus bradycardia at a rate of 57. [place]: Left axis deviation T-waves: Normal ST-segments: Normal orientation 1st-degree AV block RBBB with left anterior fascicular block Stress Test: Protocol: Lexiscan protocol was initiated with injection of 0.4mg Lexiscan IV push followed by Cardiolite. Blood pressure: Initial & maximum: 158/78 Rate & rhythm: Patient remained in sSinus rhythm during the exercise and recovery portions of the study.? The maximum heart rate was 68, which was 44% of the maximum predicted heart rate. Monomorphic PVCs noted. ST-segments & T-waves: There were no T-wave changes and no ST-segment changes when compared to the baseline EKG. Patient response/symptoms: There were no symptoms similar to the chief complaint. Interpretation: Normal Lexiscan stress test without electrocardiographical evidence of ischemia. Patient was asymptomatic regarding chief complaint. Cardiolite imaging interpretation will be reported separately. Clinical correlation required.
== END 2024-02-11 07:37 | disposition home or self-care (01) ==
LOC: NM 07:36
PROVIDERS: PCP Family Medicine; Visit Provider Family Medicine
DX: Z95.1 Presence of aortocoronary bypass graft (principal)
CPT/HCPCS: 78452; 93017; A9500; J2785

== ENCOUNTER 2024-02-20 12:42 | Outpatient (OUT) | payer MEDICARE, BC, SELFPAY ==
--- NOTE | 2024-02-20 12:45 | US_ITS ---
[address] [address] Patient Name: TAYLOR MCCLELLAN MRN: [id number] date: 1955 Sex: M Assigned Patient Location: Current Patient Location: LAB Accession/Order Number: [id number] Exam Date: 02/20/2024 12:46 Report Date: 02/20/2024 15:49 At the request of: MITZY TOVAR Procedure: US carotid duplex BI EXAMINATION: US carotid duplex BI HISTORY: carotid stenosis; bilateral COMPARISON: No relevant comparison available. TECHNIQUE: Duplex Doppler ultrasound analysis of carotid and vertebral arteries. . Bilateral carotid arterial duplex examination was performed using B-mode, color flow and spectral analysis. Carotid stenosis is reported according to validated velocity parameters, similar to NASCET criteria. FINDINGS: RIGHT CAROTID ARTERY Moderate atherosclerotic plaque Subclavian: PSV: 85.9 cm/s cm/s EDV: 0.0 cm/s cm/s CCA: Prox: PSV: 54.8 cm/s cm/s EDV: 15.3 cm/s cm/s Mid: PSV: 46.9 cm/s cm/s EDV: 14.2 cm/s cm/s Distal: PSV: 50.5 cm/s cm/s EDV: 13.9 cm/s cm/s BULB: PSV: 96.7 cm/s cm/s EDV: 25.7 cm/s cm/s ICA: Prox: PSV: 90.3 cm/s cm/s EDV: 20.8 cm/s cm/s Mid: PSV: 63.6 cm/s cm/s EDV: 14.2 cm/s cm/s Distal: PSV: 65.8 cm/s cm/s EDV: 25.2 cm/s cm/s ECA: PSV: 267.6 cm/s cm/s EDV: 30.7 cm/s cm/s VERTEBRAL: PSV: 59.6 cm/s cm/s EDV: 12.8 cm/s cm/s, antegrade ICA/CCA ratio: PSV: 1.9 EDV: 1.9 LEFT CAROTID ARTERY moderate atherosclerotic plaque Subclavian: PSV: 82.2 cm/s cm/s EDV: 4.7 cm/s CCA: Prox: PSV: 120.9 cm/s cm/s EDV: 20.8 cm/s Mid: PSV: 91.9 cm/s cm/s EDV: 19.2 cm/s Distal: PSV: 90.2 cm/s cm/s EDV: 17.6 cm/s BULB: PSV: 67.6 cm/s cm/s EDV: 14.4 cm/s ICA: Prox: PSV: 78.9 cm/s cm/s EDV: 28.9 cm/s Mid: PSV: 85.4 cm/s cm/s EDV: 25.7 cm/s Distal: PSV: 83.8 cm/s cm/s EDV: 24.1 cm/s ECA: PSV: 93.5 cm/s cm/s EDV: 12.8 cm/s VERTEBRAL: PSV: 28.7 cm/s cm/s EDV: 7.8 cm/s antegrade ICA/CCA ratio: PSV: 0.9 EDV: 1.5 US/US carotid duplex BI IMPRESSION: Elevated flow velocity in the right external carotid artery 0-49% flow stenosis bilateral internal carotid arteries Spectral Doppler US Thresholds (Reference: Sly EG, et al. Radiology 2000; 214:247-252) Stenosis (%) PSV (cm/sec) VICA/VCCA 0-49 <150 <2.5 50-69 150-225 2.5-4.0 >70 >225 >4.0 Electronically authenticated by: SARAI KIRKLAND Date: 02/20/2024 15:49
== END 2024-02-20 12:43 | disposition home or self-care (01) ==
LOC: US 12:42
PROVIDERS: PCP Family Medicine; Visit Provider Internal Medicine Interventional Cardiology
DX: I65.23 Occlusion and stenosis of bilateral carotid arteries (principal)
CPT/HCPCS: 93880

== ENCOUNTER 2024-02-20 13:56 | Outpatient (OUT) | payer MEDICARE, BC, SELFPAY ==
[2024-02-20 14:15] LABS: Basophils Absolute Auto 0.1 10^3/uL (0.0-0.1); Basophils Percent Auto 0.7 % (0.2-2.0); Eosinophils Absolute Auto 0.4 10^3/uL (0.0-0.7); Eosinophils Percent Auto 4.2 % (0.9-7.0); Hematocrit 41.5 % (42.0-54.0); Hemoglobin 13.4 g/dL (14.0-18.0); Immature Granulocytes Abs Auto 0.01 10^3/uL (0.00-0.03); Immature Granulocytes Pct Auto 0.1 % (0.0-0.5); Lymphocytes Absolute Auto 3.1 10^3/uL (1.2-3.8); Lymphocytes Percent Auto 34.2 % (20.5-60.0); Mean Corpuscular HGB Conc 32.3 g/dL (29.9-35.2); Mean Corpuscular Hemoglobin 30.4 pg (25.9-34.0); Mean Corpuscular Volume 94.1 fL (80.0-94.0); Mean Platelet Volume 11.3 fL (9.5-13.5); Monocytes Absolute Auto 0.5 10^3/uL (0.3-0.8); Monocytes Percent Auto 5.3 % (1.7-12.0); Neutrophils Percent Auto 55.5 % (43.0-75.0); Platelet Count 182 10^3/uL (150-450); Red Blood Count 4.41 10^6/uL (4.70-6.10); Red Cell Distribution Width 13.8 % (11.0-15.0); White Blood Count 9.1 10^3/uL (4.0-11.0)
[2024-02-20 15:03] LABS: BUN Creatinine Ratio 11.7; Calcium 8.8 mg/dL (8.5-10.1); Carbon Dioxide 29.8 mmol/L (21.0-32.0); Chloride 105 mmol/L (98-107); Estimated GFR (African America >60 (>=60); Estimated GFR (Non-African Ame >60 (>=60); Glucose 84 mg/dL (74-106); Potassium 4.8 mmol/L (3.5-5.1); Sodium 142 mmol/L (136-145)
== END 2024-02-20 13:57 | disposition home or self-care (01) ==
LOC: LAB 13:57
PROVIDERS: PCP Family Medicine
DX: R94.39 Abnormal result of other cardiovascular function study (principal)
CPT/HCPCS: 36415; 80048; 85025

== ENCOUNTER 2024-03-02 01:10 | Outpatient (REF) | payer MEDICARE, BC, SELFPAY ==
[2024-03-02 07:29] LABS: Basophils Absolute Auto 0.1 10^3/uL (0.0-0.1); Basophils Percent Auto 0.5 % (0.2-2.0); Eosinophils Absolute Auto 0.3 10^3/uL (0.0-0.7); Eosinophils Percent Auto 2.6 % (0.9-7.0); Hematocrit 41.4 % (42.0-54.0); Hemoglobin 13.4 g/dL (14.0-18.0); Immature Granulocytes Abs Auto 0.02 10^3/uL (0.00-0.03); Immature Granulocytes Pct Auto 0.2 % (0.0-0.5); Lymphocytes Absolute Auto 2.5 10^3/uL (1.2-3.8); Lymphocytes Percent Auto 22.4 % (20.5-60.0); Mean Corpuscular HGB Conc 32.4 g/dL (29.9-35.2); Mean Corpuscular Hemoglobin 30.5 pg (25.9-34.0); Mean Corpuscular Volume 94.3 fL (80.0-94.0); Mean Platelet Volume 11.4 fL (9.5-13.5); Monocytes Absolute Auto 0.7 10^3/uL (0.3-0.8); Monocytes Percent Auto 6.4 % (1.7-12.0); Neutrophils Absolute Auto 7.5 10^3/uL (1.4-6.5); Neutrophils Percent Auto 67.9 % (43.0-75.0); Platelet Count 236 10^3/uL (150-450); Red Blood Count 4.39 10^6/uL (4.70-6.10)
[2024-03-02 08:11] LABS: Estimated Average Glucose 120 mg/dL; Glycohemoglobin A1C 5.8 % (4.5-6.2)
[2024-03-02 08:22] LABS: Alanine Aminotransferase 20 U/L (16-63); Albumin Globulin Ratio 0.8; Albumin Level 3.2 g/dL (3.4-5.0); Alkaline Phosphatase 46 U/L (46-116); Anion Gap 13.6; Aspartate Amino Transferase 14 U/L (15-37); BUN Creatinine Ratio 15.2; Bilirubin Total 0.3 mg/dL (0.2-1.0); Calcium 8.8 mg/dL (8.5-10.1); Chloride 107 mmol/L (98-107); Chol HDL Ratio 3.2; Cholesterol 147 mg/dL (<=200); Estimated GFR (African America >60 (>=60); Estimated GFR (Non-African Ame >60 (>=60); Globulin 4.1 g/dL; Glucose 120 mg/dL (74-106); HDL Cholesterol 46 mg/dL (40-60); LDL Cholesterol Calculated 84.2 mg/dL; Potassium 4.6 mmol/L (3.5-5.1); Sodium 145 mmol/L (136-145); Total Protein 7.3 g/dL (6.4-8.2); Triglycerides 84 mg/dL (<=150); VLDL CHOLESTEROL 16.8 mg/dL
== END 2024-03-02 01:11 | disposition home or self-care (01) ==
LOC: LAB 01:10
PROVIDERS: PCP Family Medicine
DX: E11.59 Type 2 diabetes mellitus with other circulatory complications (principal); R94.39 Abnormal result of other cardiovascular function study; I65.29 Occlusion and stenosis of unspecified carotid artery; I10 Essential (primary) hypertension; I25.10 Atherosclerotic heart disease of native coronary artery without angina pectoris; E78.2 Mixed hyperlipidemia; Z95.1 Presence of aortocoronary bypass graft
CPT/HCPCS: 36415; 80053; 80061; 82172; 83036; 83695; 85025

== ENCOUNTER 2024-03-30 02:11 | Outpatient (REF) | payer MEDICARE, BC, SELFPAY ==
[2024-03-30 11:30] LABS: Basophils Absolute Auto 0.1 10^3/uL (0.0-0.1); Eosinophils Absolute Auto 0.3 10^3/uL (0.0-0.7); Eosinophils Percent Auto 3.6 % (0.9-7.0); Hematocrit 42.8 % (42.0-54.0); Hemoglobin 13.7 g/dL (14.0-18.0); Immature Granulocytes Abs Auto 0.01 10^3/uL (0.00-0.03); Immature Granulocytes Pct Auto 0.1 % (0.0-0.5); Lymphocytes Absolute Auto 3.6 10^3/uL (1.2-3.8); Lymphocytes Percent Auto 46.4 % (20.5-60.0); Mean Corpuscular Hemoglobin 30.1 pg (25.9-34.0); Mean Corpuscular Volume 94.1 fL (80.0-94.0); Mean Platelet Volume 11.8 fL (9.5-13.5); Monocytes Absolute Auto 0.6 10^3/uL (0.3-0.8); Monocytes Percent Auto 7.8 % (1.7-12.0); Neutrophils Absolute Auto 3.2 10^3/uL (1.4-6.5); Neutrophils Percent Auto 41.1 % (43.0-75.0); Platelet Count 205 10^3/uL (150-450); Red Blood Count 4.55 10^6/uL (4.70-6.10); Red Cell Distribution Width 13.9 % (11.0-15.0); White Blood Count 7.8 10^3/uL (4.0-11.0)
[2024-03-30 11:37] LABS: Alanine Aminotransferase 26 U/L (16-63); Albumin Globulin Ratio 0.9; Albumin Level 3.3 g/dL (3.4-5.0); Alkaline Phosphatase 41 U/L (46-116); Anion Gap 11.9; Aspartate Amino Transferase 23 U/L (15-37); BUN Creatinine Ratio 12.6; Bilirubin Total 0.3 mg/dL (0.2-1.0); Calcium 8.7 mg/dL (8.5-10.1); Carbon Dioxide 27.9 mmol/L (21.0-32.0); Chloride 107 mmol/L (98-107); Chol HDL Ratio 3.2; Cholesterol 149 mg/dL (<=200); Estimated GFR (African America >60 (>=60); Estimated GFR (Non-African Ame >60 (>=60); Globulin 3.8 g/dL; Glucose 90 mg/dL (74-106); HDL Cholesterol 46 mg/dL (40-60); LDL Cholesterol Calculated 81.4 mg/dL; Potassium 4.8 mmol/L (3.5-5.1); Sodium 142 mmol/L (136-145); Total Protein 7.1 g/dL (6.4-8.2); Triglycerides 108 mg/dL (<=150); VLDL CHOLESTEROL 21.6 mg/dL
[2024-03-30 11:38] LABS: Estimated Average Glucose 117 mg/dL; Glycohemoglobin A1C 5.7 % (4.5-6.2)
== END 2024-03-30 02:12 | disposition home or self-care (01) ==
LOC: LAB 02:11
PROVIDERS: PCP Family Medicine; Visit Provider Internal Medicine Cardiovascular Disease
DX: I65.29 Occlusion and stenosis of unspecified carotid artery (principal); R94.39 Abnormal result of other cardiovascular function study; I10 Essential (primary) hypertension; I25.10 Atherosclerotic heart disease of native coronary artery without angina pectoris; E11.69 Type 2 diabetes mellitus with other specified complication; E78.2 Mixed hyperlipidemia; Z95.1 Presence of aortocoronary bypass graft; E11.59 Type 2 diabetes mellitus with other circulatory complications
CPT/HCPCS: 36415; 80053; 80061; 82172; 83036; 83695; 85025

== ENCOUNTER 2024-04-14 10:49 | Observation (INO) | payer MEDICARE, BC, SELFPAY ==
[2024-04-14] VITALS (40 sets, daily range): BP systolic 83–170; BP diastolic 50–99; PULSE 62–84; TEMP 36.5–37.2; O2SAT 90–98; BMI 30.7; BMI 28.3
--- NOTE | 2024-04-14 11:37 | ECG_ITS ---
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
--- NOTE | 2024-04-14 11:42 | ED.FALL1 ---
HPI HPI - Fall General Chief Complaint: Fall Stated Complaint: FALL Time Seen by Provider: 04/14/24 11:01 Source: patient Mode of arrival: ambulance History of Present Illness HPI Narrative: 68-year-old male from nursing home facility with chief complaint of accidental fall. Patient reports that he got up in the night last night got confused and tripped. He reports that he fell onto his back. He denies any loss of consciousness. He reports he was able to get up and get back to bed. Nursing facility reports the patient fell again this morning. Patient does not remember this. Patient reports that he has chronic lower back pain. He denies any new numbness, weakness, tingling, saddle anesthesia, bowel bladder incontinence or retention. He reports it is painful to walk however. He is on Plavix and aspirin. Related Data Home Medications ?Medication ?Instructions ?Recorded ?Confirmed aspirin 81 mg capsule 81 mg PO DAILY 03/14/23 04/14/24 carvedilol 12.5 mg tablet (Coreg) 12.5 mg PO BID 03/14/23 04/14/24 clopidogrel 75 mg tablet 75 mg PO QDAY 03/14/23 04/14/24 mirtazapine 45 mg tablet 45 mg PO DAILY 11/05/23 04/14/24 atorvastatin 80 mg tablet 80 mg PO DAILY 04/14/24 04/14/24 candesartan 8 mg tablet 8 mg PO DAILY 04/14/24 04/14/24 cyclobenzaprine 10 mg tablet 10 mg PO TID PRN muscle spasm 04/14/24 04/14/24 divalproex 500 mg tablet,delayed 500 mg PO Q12H 04/14/24 04/14/24 release ezetimibe 10 mg tablet 10 mg PO DAILY 04/14/24 04/14/24 famotidine 40 mg tablet 40 mg PO DAILY 04/14/24 04/14/24 gabapentin 600 mg tablet 600 mg PO QID 04/14/24 04/14/24 primidone 50 mg tablet 50 mg PO DAILY 04/14/24 04/14/24 tamsulosin 0.4 mg capsule 0.4 mg PO DAILY 04/14/24 04/14/24 tramadol 50 mg tablet 50 mg PO QID PRN pain 04/14/24 04/14/24 Previous Rx's ?Medication ?Instructions ?Recorded celecoxib 200 mg capsule 200 mg PO DAILY #30 caps 03/15/23 Allergies Allergy/AdvReac Type Severity Reaction Status Date / Time amitriptyline Allergy Verified 11/05/23 23:51 citalopram Allergy Verified 11/05/23 23:51 fentanyl Allergy Verified 11/05/23 23:51 simvastatin [From Zocor] Allergy Verified 11/05/23 23:51 succinylcholine Allergy Verified 11/05/23 23:51 venlafaxine [From Effexor] Allergy Verified 11/05/23 23:51 Opioid HPI Opioid Management Most Recent Pain and Opioid Data: Last Pain Scale 4 04/14/24 11:42 Ur Phencyclidine Scrn Negative (NEGATIVE) 11/05/23 16:26 Review of Systems ROS Status of ROS 10 or more systems reviewed and unremarkable except as noted in history and below [facility] Medical History (Updated 04/14/24 @ 14:44 by Jeet Pina MD) CAD (coronary artery disease) ?I25.10 - Atherosclerotic heart disease of [place] coronary artery without angina pectoris (ICD-10) Back pain ?M54.9 - Dorsalgia, unspecified (ICD-10) 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 - Fusion of spine, lumbar region (ICD-10) High cholesterol ?E78.00 - Pure hypercholesterolemia, unspecified (ICD-10) Hypertension ?I10 - Essential (primary) hypertension (ICD-10) IDDM (insulin dependent diabetes mellitus) Restless leg syndrome ?G25.81 - Restless legs syndrome (ICD-10) Suicidal ideation ?R45.851 - Suicidal ideations (ICD-10) Sleep apnea ?G47.30 - Sleep apnea, unspecified (ICD-10) Anxiety ?F41.9 - Anxiety disorder, unspecified (ICD-10) Metabolic encephalopathy ?G93.41 - Metabolic encephalopathy (ICD-10) Depression ?F32.A - Depression, unspecified (ICD-10) Acute renal failure ?N17.9 - Acute kidney failure, unspecified (ICD-10) Altered mental status ?R41.82 - Altered mental status, unspecified (ICD-10) Surgical History (Updated 03/14/23 @ 23:37 by Christiana Hou) S/P CABG (coronary artery bypass graft) ?Z95.1 - Presence of aortocoronary bypass graft (ICD-10) History of heart artery stent ?Z95.5 - Presence of coronary angioplasty implant and graft (ICD-10) Family History (Updated 03/14/23 @ 23:00 by Taniya Mercado) Mother Family history of myocardial infarction Social History (Updated 03/14/23 @ 23:05 by Taniya Mercado) Within the past year, how often did you have a drink containing alcohol: never Score interpretation: A score less than 4 is consistent with normal alcohol consumption. 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 Known occupational exposures/hazards: No Highest level of school completed/degree received: some college, no degree Do you want help with school or training: No Are you now , , , , never or living with a partner: In a typical week, how many times do you talk on the telephone with family, friends, or neighbors: never How often do you get together with friends or relatives: never How often do you attend quaker or faith services: never Do you belong to any clubs or organizations such as quaker groups unions, fra[employer]slines or athletic groups, or school groups: no Total score: 1 Score interpretation: A score of less than or equal to 1 indicates the most socially isolated. Little interest or pleasure in doing things: nearly every day Feeling down, depressed, or hopeless: several days Feel stressed/tense/nervous/anxious/difficulty sleeping: very much Life stressors: recent of family or friend Life stressor details: mother and step father a year ago Due to disability, difficulty making decisions: No Do you think of yourself as: straight/heterosexual Gender Identity: male Exam Narrative Exam Narrative: Primary Survey Airway Intact Lung sounds clear and equal bilaterally Pulses full and equal to femoral, radial, and dorsalis pedis bilaterally Heart regular rate and rhythm Skin warm, dry, pink GCS 14, mild situational confusion. Sensation intact in all 4 extremities. Moves all 4 extremities. Movement and sensation intact to all extremities Patient Exposed. No obvious evidence of trauma. Secondary Survey General: GCS 14; confused HEENT: Head atraumatic; Facial bones stable; Eyes normal inspection, Pupils round, 4-2mm blt; No evidence of oropharyngeal trauma; No blood in the nares or septal hematoma; Tympanic Membranes intact, no hemotympanum or drainage Neck: Normal inspection; no midline cervical tenderness; No tracheal deviation; No JVD Resp: Normal breath sounds, no wheeze or crackles; No chest wall tenderness, crepitus, or subcutaneous emphysema; No visible evidence of chest wall trauma; Chest rise symmetric; No respiratory distress Heart: Heart rate and rhythm regular; Carotid, radial, femoral, dorsalis pedis pulses +2 and equal bilaterally; No Murmurs Abdomen: Soft; Non-tender No ecchymosis or visible wounds to abdominal wall; No distention, guarding, rigidity, or rebound; Pelvis stable, no pain on compression MSK: All major joints with normal ROM. No deformities. No bony tenderness. Mild tenderness tenderness without step-offs to palpation of thoracic and lumbar spine; No ecchymosis or wounds to upper or lower back Neuro: Alert and oriented; Sensation intact and symmetric bilaterally; muscle strengths symmetric bilaterally in the upper and lower extremities. Patellar reflexes intact. Normal sensation in the groin. Skin: Color normal; No rash; Warm; Dry Constitutional Vital Signs, click to edit/add: Last Vital Signs Temp 99 F 04/14/24 10:50 Pulse 67 04/14/24 10:58 Resp 12 04/14/24 10:58 BP 150/80 H 04/14/24 10:58 Pulse Ox 92 L 04/14/24 10:58 O2 Del Method Room Air 04/14/24 10:50 Course Vital Signs Vital signs: Vital Signs Temperature 99 F 04/14/24 10:50 Pulse Rate 68 04/14/24 10:50 Respiratory Rate 18 04/14/24 10:50 Blood Pressure 83/50 L 04/14/24 10:50 Pulse Oximetry 91 L 04/14/24 10:50 Oxygen Delivery Method Room Air 04/14/24 10:50 Temperature 99 F 04/14/24 10:50 Pulse Rate 67 04/14/24 10:58 Respiratory Rate 12 04/14/24 10:58 Blood Pressure 150/80 H 04/14/24 10:58 Pulse Oximetry 92 L 04/14/24 10:58 Oxygen Delivery Method Room Air 04/14/24 10:50 MDM - Fall MDM Narrative Medical decision making narrative: 68-year-old male to the emergency department with chief complaint of accidental fall. Vital stable, the patient is afebrile. He is alert but confused. He is pleasant in conversation. His recollection of the events that occurred are incomplete. Patient reports that when he gets up and walks he has pain all over, worse in his lower back. He does not believe it is worse than typical for him. He denies any extremity pain. He denies any numbness, weakness, tingling. He reports he has recently been at his baseline health and has no complaints. Guardian reports he is more confused than normal. He did come from a long-term care facility. Guardian reports he resides there due to his Parkinson's and dementia. Guardian reports he has a history of chronic back pain. CT head: Negative CT C-spine: Negative CT chest ab pelvis: No acute findings Lab work reviewed and noted. There are no significant abnormalities. Urinalysis without evidence of infection. Nursing staff try to get the patient up to walk and he became near syncopal. They had to place him back in bed. He did have a significant drop in his systolic blood pressure during this episode. Fluid bolus was ordered for the patient. Guardian reports he would like him to be admitted until he is in a better state of health as he is concerned he may fall again. I did discuss the case with the hospitalist who agrees to admit this patient to his service. Medical Records Attestation: I reviewed the patient's medical records. Medical records narrative: USP facesheet, diagnoses list, MAR summary Imaging Data Imaging: Radiologist's impression: ITS Impressions Abdomen/Pelvis CT 04/14/24 12:12 IMPRESSION: 1. No acute solid or hollow organ injury of the chest, abdomen, pelvis. 2. Mild infiltrates versus atelectasis within bilateral lower lobes. 3. Stable mild hilar and mediastinal adenopathy; nonspecific. 4. Marked atherosclerotic disease of abdominal aorta and major branches. 5. No fracture. 6. Prior surgical changes and chronic degenerative changes of lumbar spine. Electronically authenticated by: LIAM SCHUMACHER Date: 04/14/2024 12:[address] 04/14/24 12:12 IMPRESSION: 1. No appreciable acute abnormality. 2. Degenerative changes resulting in moderate or greater central canal and foraminal stenosis. Electronically authenticated by: LIAM SCHUMACHER Date: 04/14/2024 12:[address] 04/14/24 12:12 IMPRESSION: 1. No acute solid or hollow organ injury of the chest, abdomen, pelvis. 2. Mild infiltrates versus atelectasis within bilateral lower lobes. 3. Stable mild hilar and mediastinal adenopathy; nonspecific. 4. Marked atherosclerotic disease of abdominal aorta and major branches. 5. No fracture. 6. Prior surgical changes and chronic degenerative changes of lumbar spine. Electronically authenticated by: LIAM SCHUMACHER Date: 04/14/2024 12:[address] 04/14/24 12:12 IMPRESSION: 1. No intracranial hemorrhage or appreciable acute abnormality. 2. Stable chronic changes. 3. No fracture the calvarium or scalp hematoma. Electronically authenticated by: LIAM SCHUMACHER Date: 04/14/2024 13:02 ECG Data Attestation: I personally reviewed and interpreted this ECG as follows: (Normal sinus rhythm. No STEMI. Normal QTc) Discharge Plan Discharge Chief Complaint: Fall Clinical Impression: Accidental fall, Orthostatic dizziness, Chronic back pain, Altered mental status Patient Disposition: Admitted as Observation Time of Disposition Decision: 14:44 Condition: Fair Prescriptions / Home Meds: No Action clopidogrel 75 mg tablet 75 mg PO QDAY carvedilol [Coreg] 12.5 mg tablet 12.5 mg PO BID Rx Instructions: must administer with a meal/food aspirin 81 mg capsule 81 mg PO DAILY Hold Instructions: pt stopped taking celecoxib 200 mg Capsule 200 mg PO DAILY Qty: 30 11RF mirtazapine 45 mg tablet 45 mg PO DAILY ezetimibe 10 mg tablet 10 mg PO DAILY cyclobenzaprine 10 mg tablet 10 mg PO TID PRN (Reason: muscle spasm) divalproex 500 mg tablet,delayed release (DR/EC) 500 mg PO Q12H famotidine 40 mg tablet 40 mg PO DAILY tamsulosin 0.4 mg capsule 0.4 mg PO DAILY tramadol 50 mg tablet 50 mg PO QID PRN (Reason: pain) candesartan 8 mg tablet 8 mg PO DAILY atorvastatin 80 mg tablet 80 mg PO DAILY gabapentin 600 mg tablet 600 mg PO QID primidone 50 mg tablet 50 mg PO DAILY Print Language: Kyrgyz Referrals: Norbert Jiang MD [Primary Care Provider] - 1 week
[2024-04-14 11:59] LABS: Basophils Absolute Auto 0.1 10^3/uL (0.0-0.1); Basophils Percent Auto 0.5 % (0.2-2.0); Eosinophils Absolute Auto 0.1 10^3/uL (0.0-0.7); Eosinophils Percent Auto 1.3 % (0.9-7.0); Hematocrit 41.6 % (42.0-54.0); Hemoglobin 13.6 g/dL (14.0-18.0); Immature Granulocytes Abs Auto 0.13 10^3/uL (0.00-0.03); Immature Granulocytes Pct Auto 1.3 % (0.0-0.5); Lymphocytes Absolute Auto 2.1 10^3/uL (1.2-3.8); Mean Corpuscular HGB Conc 32.7 g/dL (29.9-35.2); Mean Corpuscular Hemoglobin 30.5 pg (25.9-34.0); Mean Corpuscular Volume 93.3 fL (80.0-94.0); Mean Platelet Volume 12.2 fL (9.5-13.5); Monocytes Absolute Auto 0.6 10^3/uL (0.3-0.8); Monocytes Percent Auto 5.9 % (1.7-12.0); Platelet Count 202 10^3/uL (150-450); Red Blood Count 4.46 10^6/uL (4.70-6.10)
[2024-04-14 12:06] LABS: INR 1.07; Prothrombin Time 11.3 sec (9.0-11.6)
[2024-04-14 12:10] LABS: Alanine Aminotransferase 27 U/L (16-63); Albumin Globulin Ratio 0.9; Albumin Level 3.4 g/dL (3.4-5.0); Alkaline Phosphatase 42 U/L (46-116); Anion Gap 14.8; Aspartate Amino Transferase 24 U/L (15-37); BUN Creatinine Ratio 17.9; Bilirubin Total 0.5 mg/dL (0.2-1.0); Calcium 8.7 mg/dL (8.5-10.1); Carbon Dioxide 26.2 mmol/L (21.0-32.0); Chloride 106 mmol/L (98-107); Estimated GFR (African America >60 (>=60); Estimated GFR (Non-African Ame >60 (>=60); Globulin 3.6 g/dL; Glucose 100 mg/dL (74-106); Sodium 143 mmol/L (136-145); Troponin I High Sensitivity 5.7 pg/mL (4.0-76.1)
--- NOTE | 2024-04-14 12:12 | CT_ITS ---
The [address] [address] Patient Name: TAYLOR MCCLELLAN MRN: [id number] date: 1955 Sex: M Assigned Patient Location: ER Current Patient Location: ER Accession/Order Number: [id number] Exam Date: 04/14/2024 11:59 Report Date: 04/14/2024 12:58 At the request of: ELIAZAR SAN Procedure: CT cervical spine wo con EXAMINATION: CT cervical spine wo con HISTORY: fall, injury COMPARISON: No relevant comparison available. TECHNIQUE: Axial, Coronal, and Sagittal images were created without IV contrast. Dose reduction techniques were achieved by using automated exposure control and/or adjustment of mA and/or kV according to patient size and/or use of iterative reconstruction technique. FINDINGS: VERTEBRAL BODIES: Slight reversal normal lordotic curvature. No fracture or spondylolisthesis. FACET JOINTS: Multilevel mild degenerative changes. No disruption or abnormal widening. DISCS: Moderate disc space narrowing and posterior disc osteophyte complexes C3-4 and C4-5 resulting in moderate central canal and foraminal stenosis. CENTRAL CANAL: No evidence of hemorrhage. PARASPINAL AREA: Endovascular stent within right carotid bulb and proximal ICA. CT/CT cervical spine wo con IMPRESSION: 1. No appreciable acute abnormality. 2. Degenerative changes resulting in moderate or greater central canal and foraminal stenosis. Electronically authenticated by: LIAM SCHUMACHER Date: 04/14/2024 12:58
--- NOTE | 2024-04-14 12:12 | CT_ITS ---
[address] [address] Patient Name: TAYLOR MCCLELLAN MRN: [id number] date: 1955 Sex: M Assigned Patient Location: ER Current Patient Location: Accession/Order Number: [id number] Exam Date: 04/14/2024 11:59 Report Date: 04/14/2024 12:47 At the request of: ELIAZAR SAN Procedure: CT chest wo con EXAMINATION: CT abdomen pelvis wo con, CT chest wo con HISTORY: fall, injury COMPARISON: No relevant comparison available. TECHNIQUE: Axial, Coronal, and Sagittal CT images were obtained without and/or with IV contrast as indicated by examination type. Dose reduction techniques were achieved by using automated exposure control and/or adjustment of mA and/or kV according to patient size and/or use of iterative reconstruction technique. FINDINGS: LUNGS: Mild patchy and strandy opacities within lower lobes, right greater than left. Stable 6 mm nodule within lateral right middle lobe. Moderate emphysematous changes. PLEURA: No mass or effusion. VASCULATURE: No visible pulmonary arterial thrombus or attenuation. JULIA: Stable mild adenopathy. MEDIASTINUM: Stable mild adenopathy. CARDIAC: No enlargement, pericardial thickening, or pericardial effusion. AORTA: No aneurysm or dissection.. CORONARY ARTERY CALCIFICATIONS: Coronary calcifications are moderate. CHEST WALL: No mass or axillary adenopathy. LIVER: No enlargement, atrophy, abnormal density, or significant focal lesion. BILIARY: No dilatation or calcification. PANCREAS: No lesion, fluid collection, ductal dilatation, or atrophy. SPLEEN: No enlargement or focal lesion. ADRENALS: No mass or enlargement. KIDNEYS: No mass, obstruction, or calcification. BOWEL/MESENTERY: No visible mass, obstruction, or bowel wall thickening. AORTA/VASCULAR: Marked atherosclerotic disease of abdominal aorta and major branches. No aneurysm. RETROPERITONEUM: No mass or adenopathy. LYMPH NODES: No adenopathy. URINARY BLADDER: No visible focal wall thickening, lesion, or calculus. PELVIC ORGANS: No visible mass. Pelvic organs appropriate for patient age. ABDOMINAL WALL: No mass or hernia. BONES: Posterior mechanical fusion L5-S1 via right side pedicle screws and rods. Moderate-marked degenerative disc disease L4-5, L5-S1. No bony lesion or fracture. OTHER: Negative. CT/CT chest wo con IMPRESSION: 1. No acute solid or hollow organ injury of the chest, abdomen, pelvis. 2. Mild infiltrates versus atelectasis within bilateral lower lobes. 3. Stable mild hilar and mediastinal adenopathy; nonspecific. 4. Marked atherosclerotic disease of abdominal aorta and major branches. 5. No fracture. 6. Prior surgical changes and chronic degenerative changes of lumbar spine. Electronically authenticated by: LIAM SCHUMACHER Date: 04/14/2024 12:47
--- NOTE | 2024-04-14 12:12 | CT_ITS ---
[address] [address] Patient Name: TAYLOR MCCLELLAN MRN: [id number] date: 1955 Sex: M Assigned Patient Location: ER Current Patient Location: ER Accession/Order Number: [id number] Exam Date: 04/14/2024 11:59 Report Date: 04/14/2024 12:47 At the request of: ELIAZAR SAN Procedure: CT abdomen pelvis wo con EXAMINATION: CT abdomen pelvis wo con, CT chest wo con HISTORY: fall, injury COMPARISON: No relevant comparison available. TECHNIQUE: Axial, Coronal, and Sagittal CT images were obtained without and/or with IV contrast as indicated by examination type. Dose reduction techniques were achieved by using automated exposure control and/or adjustment of mA and/or kV according to patient size and/or use of iterative reconstruction technique. FINDINGS: LUNGS: Mild patchy and strandy opacities within lower lobes, right greater than left. Stable 6 mm nodule within lateral right middle lobe. Moderate emphysematous changes. PLEURA: No mass or effusion. VASCULATURE: No visible pulmonary arterial thrombus or attenuation. JULIA: Stable mild adenopathy. MEDIASTINUM: Stable mild adenopathy. CARDIAC: No enlargement, pericardial thickening, or pericardial effusion. AORTA: No aneurysm or dissection.. CORONARY ARTERY CALCIFICATIONS: Coronary calcifications are moderate. CHEST WALL: No mass or axillary adenopathy. LIVER: No enlargement, atrophy, abnormal density, or significant focal lesion. BILIARY: No dilatation or calcification. PANCREAS: No lesion, fluid collection, ductal dilatation, or atrophy. SPLEEN: No enlargement or focal lesion. ADRENALS: No mass or enlargement. KIDNEYS: No mass, obstruction, or calcification. BOWEL/MESENTERY: No visible mass, obstruction, or bowel wall thickening. AORTA/VASCULAR: Marked atherosclerotic disease of abdominal aorta and major branches. No aneurysm. RETROPERITONEUM: No mass or adenopathy. LYMPH NODES: No adenopathy. URINARY BLADDER: No visible focal wall thickening, lesion, or calculus. PELVIC ORGANS: No visible mass. Pelvic organs appropriate for patient age. ABDOMINAL WALL: No mass or hernia. BONES: Posterior mechanical fusion L5-S1 via right side pedicle screws and rods. Moderate-marked degenerative disc disease L4-5, L5-S1. No bony lesion or fracture. OTHER: Negative. CT/CT abdomen pelvis wo con IMPRESSION: 1. No acute solid or hollow organ injury of the chest, abdomen, pelvis. 2. Mild infiltrates versus atelectasis within bilateral lower lobes. 3. Stable mild hilar and mediastinal adenopathy; nonspecific. 4. Marked atherosclerotic disease of abdominal aorta and major branches. 5. No fracture. 6. Prior surgical changes and chronic degenerative changes of lumbar spine. Electronically authenticated by: LIAM SCHUMACHER Date: 04/14/2024 12:47
--- NOTE | 2024-04-14 12:12 | CT_ITS ---
The [address] [address] Patient Name: TAYLOR MCCLELLAN MRN: [id number] date: 1955 Sex: M Assigned Patient Location: ER Current Patient Location: ER Accession/Order Number: [id number] Exam Date: 04/14/2024 11:59 Report Date: 04/14/2024 13:02 At the request of: ELIAZAR SAN Procedure: CT head/brain wo con EXAMINATION: CT head/brain wo con HISTORY: fall, injury COMPARISON: CT head 01/17/2023 TECHNIQUE: Axial CT images were obtained without IV contrast. Dose reduction techniques were achieved by using automated exposure control and/or adjustment of mA and/or kV according to patient size and/or use of iterative reconstruction technique. FINDINGS: BRAIN: Stable old lacunar infarctions versus prominent perivascular spaces within the basal ganglia bilaterally. No edema, hemorrhage, mass, acute infarction, or inappropriate atrophy. CSF SPACES: No hydrocephalus, subarachnoid hemorrhage, or mass. Appropriate for age. SKULL: No fracture, mass, or other significant visible lesion. SINUSES: No significant mucosal thickening or fluid on the limited views. ORBITS: No appreciable abnormality on the limited views. OTHER: Stable small nodule within scalp overlying the vertex; likely a impacted sebaceous gland cyst or a dermoid inclusion cyst. CT/CT head/brain wo con IMPRESSION: 1. No intracranial hemorrhage or appreciable acute abnormality. 2. Stable chronic changes. 3. No fracture the calvarium or scalp hematoma. Electronically authenticated by: LIAM SCHUMACHER Date: 04/14/2024 13:02
[2024-04-14 13:38] LABS: Bilirubin Urine NEGATIVE (NEGATIVE); Blood Urine NEGATIVE (NEGATIVE); Clarity Urine CLEAR (CLEAR); Color Urine YELLOW (YELLOW); Glucose Urine UA NEGATIVE (NEGATIVE); Ketones Urine TRACE mg/dL (NEGATIVE); Leukocyte Esterase Urine NEGATIVE (NEGATIVE); Nitrite Urine NEGATIVE (NEGATIVE); Protein Urine NEGATIVE (NEG/TRACE); Specific Gravity Urine 1.025 (1.005-1.025); pH Urine 6.5 (5.0-9.0)
[2024-04-14 13:47] LABS: Urine Microscopic Indicated NO
[2024-04-14] MEDS: OXYCODONE HCL 5 MG TABLET PO ×2 (15:32→21:54)
[2024-04-14] MEDS: 0.9 % SODIUM CHLORIDE 1,000 ML 999 ML IV (15:35)
--- NOTE | 2024-04-14 15:41 | P.HP_ITS ---
HPI H&P: HPI History of Present Illness Chief complaint: FALL Narrative: 68-year-old male with prior history of chronic low back pain, who currently resides in assisted living facility came to ED after he experienced 2 different falls and was unable to ambulate afterwards because of severe back pain with bilateral neuropathy. He reports hitting his head on [address] head was performed with no acute intracranial pathology noted. He denies loss of consciousness and her falls were of mechanical nature. Patient has chronic low back pain and has prior history of lumbar spine fusion and he told me that he is a scheduled for another back surgery in a few weeks. Patient reports that he has worse radiculopathy on right lower extremity. He could barely stand on his feet and had very unstable gait when attempted to ambulate. He has severely restricted range of motion bilaterally in lower extremities because of back pain. Patient reports that his pain is currently 8 out of 10. He denies urinary incontinence or fecal incontinence. Opioid HPI Opioid Management Most Recent Pain and Opioid Data: Last Pain Scale 8 04/14/24 15:32 Last MAR Pain Assessment 04/14/24 15:32 Ur Phencyclidine Scrn Negative (NEGATIVE) 11/05/23 16:26 Review of Systems ROS Status of ROS 10 or more systems reviewed and unremark able except as noted in history and below [facility] Medical History (Updated 04/14/24 @ 15:46 by Shaikh Uriel MD) CAD (coronary artery disease) ?I25.10 - Atherosclerotic heart disease of [place] coronary artery without angina pectoris (ICD-10) Back pain ?M54.9 - Dorsalgia, unspecified (ICD-10) 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 - Fusion of spine, lumbar region (ICD-10) High cholesterol ?E78.00 - Pure hypercholesterolemia, unspecified (ICD-10) Hypertension ?I10 - Essential (primary) hypertension (ICD-10) IDDM (insulin dependent diabetes mellitus) Restless leg syndrome ?G25.81 - Restless legs syndrome (ICD-10) Suicidal ideation ?R45.851 - Suicidal ideations (ICD-10) Sleep apnea ?G47.30 - Sleep apnea, unspecified (ICD-10) Anxiety ?F41.9 - Anxiety disorder, unspecified (ICD-10) Metabolic encephalopathy ?G93.41 - Metabolic encephalopathy (ICD-10) Depression ?F32.A - Depression, unspecified (ICD-10) Acute renal failure ?N17.9 - Acute kidney failure, unspecified (ICD-10) Altered mental status ?R41.82 - Altered mental status, unspecified (ICD-10) Surgical History (Updated 03/14/23 @ 23:37 by Christiana Hou) S/P CABG (coronary artery bypass graft) ?Z95.1 - Presence of aortocoronary bypass graft (ICD-10) History of heart artery stent ?Z95.5 - Presence of coronary angioplasty implant and graft (ICD-10) Family History (Updated 03/14/23 @ 23:00 by Taniya Mercado) Mother Family history of myocardial infarction Social History (Updated 03/14/23 @ 23:05 by Taniya Mercado) Within the past year, how often did you have a drink containing alcohol: never Score interpretation: A score less than 4 is consistent with normal alcohol consumption. 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 Known occupational exposures/hazards: No Highest level of school completed/degree received: some college, no degree Do you want help with school or training: No Are you now , , , , never or living with a partner: In a typical week, how many times do you talk on the telephone with family, friends, or neighbors: never How often do you get together with friends or relatives: never How often do you attend caodaism or latter day services: never Do you belong to any clubs or organizations such as caodaism groups unions, fraternal or athletic groups, or school groups: no Total score: 1 Score interpretation: A score of less than or equal to 1 indicates the most socially isolated. Little interest or pleasure in doing things: nearly every day Feeling down, depressed, or hopeless: several days Feel stressed/tense/nervous/anxious/difficulty sleeping: very much Life stressors: recent of family or friend Life stressor details: mother and step father a year ago Due to disability, difficulty making decisions: No Do you think of yourself as: straight/heterosexual Gender Identity: male Meds Home Medications and Allergies Home Medications ?Medication ?Instructions ?Recorded ?Confirmed ?Type aspirin 81 mg capsule 81 mg PO DAILY 03/14/23 04/14/24 History carvedilol 12.5 mg tablet (Coreg) 12.5 mg PO BID 03/14/23 04/14/24 History clopidogrel 75 mg tablet 75 mg PO QDAY 03/14/23 04/14/24 History celecoxib 200 mg capsule 200 mg PO DAILY #30 caps 03/15/23 04/14/24 Rx mirtazapine 45 mg tablet 45 mg PO DAILY 11/05/23 04/14/24 History atorvastatin 80 mg tablet 80 mg PO DAILY 04/14/24 04/14/24 History candesartan 8 mg tablet 8 mg PO DAILY 04/14/24 04/14/24 History cyclobenzaprine 10 mg tablet 10 mg PO TID PRN muscle spasm 04/14/24 04/14/24 History divalproex 500 mg tablet,delayed 500 mg PO Q12H 04/14/24 04/14/24 History release ezetimibe 10 mg tablet 10 mg PO DAILY 04/14/24 04/14/24 History famotidine 40 mg tablet 40 mg PO DAILY 04/14/24 04/14/24 History gabapentin 600 mg tablet 600 mg PO QID 04/14/24 04/14/24 History primidone 50 mg tablet 50 mg PO DAILY 04/14/24 04/14/24 History tamsulosin 0.4 mg capsule 0.4 mg PO DAILY 04/14/24 04/14/24 History tramadol 50 mg tablet 50 mg PO QID PRN pain 04/14/24 04/14/24 History Allergies Allergy/AdvReac Type Severity Reaction Status Date / Time amitriptyline Allergy Verified 11/05/23 23:51 citalopram Allergy Verified 11/05/23 23:51 fentanyl Allergy Verified 11/05/23 23:51 simvastatin [From Zocor] Allergy Verified 11/05/23 23:51 succinylcholine Allergy Verified 11/05/23 23:51 venlafaxine [From Effexor] Allergy Verified 11/05/23 23:51 Exam Constitutional Vital Signs, click to edit/add: Last Vital Signs Temp 99 F 04/14/24 10:50 Pulse 66 04/14/24 15:00 Resp 12 04/14/24 13:50 BP 142/85 H 04/14/24 15:00 Pulse Ox 98 04/14/24 12:50 O2 Del Method Room Air 04/14/24 10:50 Documenting provider has reviewed patient's vital signs: yes Common normals: no apparent distress and oriented x3 General appearance: cooperative HENMT Common normals: normocephalic and head/scalp atraumatic Head and scalp: normocephalic and atraumatic Respiratory Common normals: normal respiratory effort and clear to auscultation bilaterally Effort & inspection: able to speak in complete sentences Auscultation: clear to auscultation bilaterally Cardio Common normals: regular rate, S1 normal heart sound and S2 normal heart sound Rate: regular rate Heart sounds: S1 normal and S2 normal GI Common normals: Normal to inspection, nondistended, normoactive bowel sounds present, soft to palpation, non-tender and no hepatosplenomegaly Palpation: soft and no hepatosplenomegaly Back & Pelvis Thoracic spine/upper back: normal to inspection and pain with ROM Lumbar spine/lower back: ROM limited, pain with ROM, lumbar spinal tenderness, paraspinal muscle tenderness, paraspinal muscle spasm, straight leg raise positive right and straight leg raise positive left Extremity Common normals: no clubbing, cyanosis or edema Neuro Common normals: oriented x3, moves all extremities and no focal motor deficits Psych Common normals: mental status grossly normal, denies hallucinations, denies homicidal ideation and denies suicidal ideation Results Labs Labs: Short CBC 04/14/24 Range/Units 11:15 WBC 10.0 (4.0-11.0) 10^3/uL Hgb 13.6 L (14.0-18.0) g/dL Hct 41.6 L (42.0-54.0) % Plt Count 202 (150-450) 10^3/uL BMP 04/14/24 11:15 Sodium 143 Potassium 4.0 Chloride 106 Carbon Dioxide 26.2 BUN 17.0 Creatinine 0.95 Glucose 100 Calcium 8.7 Liver Function 04/14/24 Range/Units 11:15 Total Bilirubin 0.5 (0.2-1.0) mg/dL AST 24 (15-37) U/L ALT 27 (16-63) U/L Alkaline Phosphatase 42 L (46-116) U/L Albumin 3.4 (3.4-5.0) g/dL Urine 04/14/24 Range/Units 13:25 Urine Color Yellow (YELLOW) Urine Clarity Clear (CLEAR) Urine pH 6.5 (5.0-9.0) Ur Specific [place] 1.025 (1.005-1.025) Urine Protein Negative (NEG/TRACE) mg/dL Urine Glucose (UA) Negative (NEGATIVE) mg/dL Assessment and Plan Assessment and Plan (1) Fall: Assessment and Plan: Mechanical fall with no loss of consciousness. Patient has poor functional status at baseline and with fall, he is unable to ambulate safely without risk of falling down again. He has poorly controlled low back pain with bilateral radiculopathy. Patient admitted for pain control, PT/OT evaluation. He is currently on IV morphine and oral oxycodone as needed for pain. Qualifiers: Encounter type: subsequent encounter Qualified Code(s): W19.XXXD - Unspecified fall, subsequent encounter (2) Chronic low back pain with bilateral sciatica: Assessment and Plan: Acute worsening since he fell. Prior history of lumbar fusion. He is scheduled as outpatient for back surgery. No acute fracture/dislocation on CT. Continue with physical therapy/OT. Pain controlled. Qualifiers: Back pain laterality: midline Qualified Code(s): M54.41 - Lumbago with sciatica, right side; M54.42 - Lumbago with sciatica, left side; G89.29 - Other chronic pain (3) Ambulatory dysfunction: Assessment and Plan: Poor balance and unsteady gait at baseline, worsened after fall due to poorly controlled back pain. Continue with physical therapy/Occupational Therapy. Might need rehab if unsafe to go back to assisted living facility because of poor balance (4) CAD (coronary artery disease): Assessment and Plan: No concern for active cardiac ischemia. Continue with home care since Qualifiers: Coronary Disease-Associated Artery/Lesion type: [place] artery [place] vs. transplanted heart: [place] heart Associated angina: without angina Qualified Code(s): I25.10 - Atherosclerotic heart disease of [place] coronary artery without angina pectoris (5) Hypertension: Assessment and Plan: Continue with home medications. Monitor blood pressure. Qualifiers: Hypertension type: primary hypertension Qualified Code(s): I10 - Essential (primary) hypertension (6) Depression: Assessment and Plan: Mood is stable. With home medications Qualifiers: Depression Type: major depressive disorder Major depression recurrence: recurrent Active/Remission status: in full remission Qualified Code(s): F33.42 - Major depressive disorder, recurrent, in full remission (7) High cholesterol: Assessment and Plan: Continue with atorvastatin.
--- NOTE | 2024-04-14 16:12 | SWNOTE1 ---
Pt is from [facility].
[2024-04-14] MEDS: GABAPENTIN 300 MG CAPSULE 600 MG PO ×2 (17:14→21:52)
[2024-04-14] MEDS: MORPHINE SULFATE 2 MG/ML SYRINGE IV (19:48)
[2024-04-14] MEDS: ONDANSETRON PF 4 MG/2 ML VIAL IV (19:48)
[2024-04-14] MEDS: ACETAMINOPHEN 325 MG TABLET 650 MG PO (19:48)
[2024-04-14] MEDS: CYCLOBENZAPRINE HCL 10 MG TABLET PO (21:52)
[2024-04-14] MEDS: ATORVASTATIN CALCIUM 40 MG TABLET 80 MG PO (21:52)
[2024-04-14] MEDS: MIRTAZAPINE 15 MG TABLET 45 MG PO (21:52)
[2024-04-14] MEDS: CARVEDILOL 12.5 MG TABLET PO (21:53)
[2024-04-14] MEDS: DIVALPROEX SODIUM 500 MG TABLET.DR PO (21:53)
[2024-04-14] MEDS: ENOXAPARIN SODIUM 40 MG/0.4 ML SYRINGE SUBQ (21:59)
[2024-04-15 05:46] VITALS: BP 114/70; PULSE 69; TEMP 36.3; O2SAT 85
[2024-04-15] MEDS: GABAPENTIN 300 MG CAPSULE 600 MG PO ×2 (05:49→11:36)
[2024-04-15] MEDS: CYCLOBENZAPRINE HCL 10 MG TABLET PO (05:49)
--- NOTE | 2024-04-15 05:52 | PC.NURSE ---
Pt attempts to use the urinal but even when pt states that he did use the urinal, it was empty and the brief wet. Brief change, pt washed up.
[2024-04-15 06:27] LABS: Basophils Absolute Auto 0.1 10^3/uL (0.0-0.1); Basophils Percent Auto 0.7 % (0.2-2.0); Eosinophils Absolute Auto 0.3 10^3/uL (0.0-0.7); Eosinophils Percent Auto 3.7 % (0.9-7.0); Hematocrit 40.1 % (42.0-54.0); Immature Granulocytes Abs Auto 0.02 10^3/uL (0.00-0.03); Immature Granulocytes Pct Auto 0.2 % (0.0-0.5); Lymphocytes Absolute Auto 2.1 10^3/uL (1.2-3.8); Lymphocytes Percent Auto 24.2 % (20.5-60.0); Mean Corpuscular HGB Conc 32.4 g/dL (29.9-35.2); Mean Corpuscular Hemoglobin 30.7 pg (25.9-34.0); Mean Corpuscular Volume 94.6 fL (80.0-94.0); Mean Platelet Volume 11.6 fL (9.5-13.5); Monocytes Absolute Auto 0.6 10^3/uL (0.3-0.8); Monocytes Percent Auto 7.1 % (1.7-12.0); Neutrophils Absolute Auto 5.5 10^3/uL (1.4-6.5); Neutrophils Percent Auto 64.1 % (43.0-75.0); Platelet Count 181 10^3/uL (150-450); Red Blood Count 4.24 10^6/uL (4.70-6.10); Red Cell Distribution Width 13.8 % (11.0-15.0); White Blood Count 8.6 10^3/uL (4.0-11.0)
[2024-04-15 06:54] LABS: Alanine Aminotransferase 23 U/L (16-63); Albumin Globulin Ratio 0.9; Alkaline Phosphatase 38 U/L (46-116); Anion Gap 13.7; Aspartate Amino Transferase 18 U/L (15-37); BUN Creatinine Ratio 15.6; Bilirubin Total 0.4 mg/dL (0.2-1.0); Calcium 8.4 mg/dL (8.5-10.1); Carbon Dioxide 26.3 mmol/L (21.0-32.0); Chloride 107 mmol/L (98-107); Estimated GFR (African America >60 (>=60); Estimated GFR (Non-African Ame >60 (>=60); Globulin 3.5 g/dL; Glucose 89 mg/dL (74-106); Sodium 143 mmol/L (136-145); Total Protein 6.5 g/dL (6.4-8.2)
--- NOTE | 2024-04-15 07:17 | P.PN_ITS ---
Progress Note: Subjective Subjective Interval history: Patient is status post fall x 2 at his assisted living facility. Had significant pain in ER unable to ambulate. This morning he looks to be back to his baseline although I have not seen him ambulate yet Exam Constitutional Vital Signs, click to edit/add: Last Vital Signs Temp 97.3 F L 04/15/24 05:46 Pulse 69 04/15/24 05:46 Resp 18 04/15/24 05:46 BP 114/70 04/15/24 05:46 Pulse Ox 85 L 04/15/24 05:46 O2 Del Method Room Air 04/15/24 05:46 General appearance: cooperative and comfortable Chest Common normals: inspection of chest normal Respiratory Common normals: normal respiratory effort, no use of accessory muscles and clear to auscultation bilaterally Cardio Common normals: regular rate, regular rhythm, no gallops and no murmurs GI Common normals: Normal to inspection, nondistended, normoactive bowel sounds present Back & Pelvis Common normals: thoracic and lumbar spine normal to inspection (Mild diffuse lower back tenderness) Extremity Common normals: normal to inspection Other: Examination of the lumbar spine shows no areas of tenderness, negative straight leg raise -able to raise right leg and with dorsiflexion of the foot did not have any increase in his pain Psych Mood and affect: depressed mood Insight: poor Judgement: poor Progress Note: Objective Labs Labs: Short CBC 04/14/24 04/15/24 Range/Units 11:15 05:46 WBC 10.0 8.6 (4.0-11.0) 10^3/uL Hgb 13.6 L 13.0 L (14.0-18.0) g/dL Hct 41.6 L 40.1 L (42.0-54.0) % Plt Count 202 181 (150-450) 10^3/uL BMP 04/14/24 04/15/24 11:15 05:46 Sodium 143 143 Potassium 4.0 4.0 Chloride 106 107 Carbon Dioxide 26.2 26.3 BUN 17.0 15.0 Creatinine 0.95 0.96 Glucose 100 89 Calcium 8.7 8.4 L Liver Function 04/14/24 04/15/24 Range/Units 11:15 05:46 Total Bilirubin 0.5 0.4 (0.2-1.0) mg/dL AST 24 18 (15-37) U/L ALT 27 23 (16-63) U/L Alkaline Phosphatase 42 L 38 L (46-116) U/L Albumin 3.4 3.0 L (3.4-5.0) g/dL Urine 04/14/24 Range/Units 13:25 Urine Color Yellow (YELLOW) Urine Clarity Clear (CLEAR) Urine pH 6.5 (5.0-9.0) Ur Specific [place] 1.025 (1.005-1.025) Urine Protein Negative (NEG/TRACE) mg/dL Urine Glucose (UA) Negative (NEGATIVE) mg/dL Progress Note: A&P Assessment and Plan (1) Fall: Assessment and Plan: See item #2 Qualifiers: Encounter type: subsequent encounter Qualified Code(s): W19.XXXD - Unspecified fall, subsequent encounter (2) Chronic low back pain with bilateral sciatica: Assessment and Plan: Reviewed CT scan of abdomen and pelvis and no compression fractures of L-spine noted. Plan is if the patient can ambulate well enough with physical therapy, he can be discharged back to his assisted living facility today. I will continue to follow patient at assisted living facility and through the office, medication see list Qualifiers: Back pain laterality: midline Qualified Code(s): M54.41 - Lumbago with sciatica, right side; M54.42 - Lumbago with sciatica, left side; G89.29 - Other chronic pain (3) Ambulatory dysfunction: (4) CAD (coronary artery disease): Assessment and Plan: No chest pain Qualifiers: Associated angina: without angina Coronary Disease-Associated Artery/Lesion type: [place] artery [place] vs. transplanted heart: [place] heart Qualified Code(s): I25.10 - Atherosclerotic heart disease of [place] coronary artery without angina pectoris (5) Hypertension: Assessment and Plan: Stable this morning Qualifiers: Hypertension type: primary hypertension Qualified Code(s): I10 - Essential (primary) hypertension (6) Depression: Assessment and Plan: Improved above his baseline Qualifiers: Active/Remission status: in full remission Depression Type: major depressive disorder Major depression recurrence: recurrent Qualified Code(s): F33.42 - Major depressive disorder, recurrent, in full remission (7) High cholesterol:
[2024-04-15 08:00] VITALS: BP 147/83; PULSE 74; TEMP 36.4; O2SAT 88
[2024-04-15 08:46] VITALS: O2SAT 91
[2024-04-15] MEDS: FAMOTIDINE 20 MG TABLET 40 MG PO (09:50)
[2024-04-15] MEDS: TAMSULOSIN HCL 0.4 MG CAPSULE PO (09:50)
[2024-04-15] MEDS: OXYCODONE HCL 5 MG TABLET PO (09:50)
[2024-04-15] MEDS: CELECOXIB 200 MG CAPSULE PO (09:51)
[2024-04-15] MEDS: CLOPIDOGREL BISULFATE 75 MG TABLET PO (09:51)
[2024-04-15] MEDS: LOSARTAN POTASSIUM 25 MG TABLET PO (09:51)
[2024-04-15] MEDS: CARVEDILOL 12.5 MG TABLET PO (09:51)
[2024-04-15] MEDS: PRIMIDONE 50 MG TABLET PO (09:51)
[2024-04-15] MEDS: EZETIMIBE 10 MG TABLET PO (09:51)
[2024-04-15] MEDS: DIVALPROEX SODIUM 500 MG TABLET.DR PO (09:51)
[2024-04-15] MEDS: ASPIRIN 81 MG TAB.CHEW PO (09:51)
[2024-04-15 11:00] VITALS: BP 164/78; PULSE 76; TEMP 36.6; O2SAT 94
[2024-04-15 11:19] VITALS: O2SAT 98
--- NOTE | 2024-04-15 11:33 | SWNOTE1 ---
SW met with pt to discuss dc needs. Pt is aware that he is at [facility] and does know name and date of . Unsure of month or year. Pt stated he does live with his , Sherly, at [facility] and they have been there for 6 months. He voiced they are happy there. SW did attempt to review Medicare paper with pt, but he is alright with SW calling his son in law, Eliu. Pt did request that SW reach out to Sherly and have her call him. SW to try. SW called and spoke with Eliu. He is happy with his care at [facility] and voiced he is the guardian for pt and pt's . He stated pt's has end stage dementia. SW did review Medicare Outpatient Observation Notice with pt's son. Pt's son verbalized understanding and SW signed acknowledging form reviewed with son via phone. Original placed in pt's room and copy placed in patient?s chart. At this time we are waiting on CT results and then possible discharge back to [facility]. Eliu voiced understanding and he has a truck and can't transport pt. ISABELLA to reach out to Elisa at [facility] to see if [facility] bus is available.
--- NOTE | 2024-04-15 11:43 | SWNOTE1 ---
SW did discuss rehab with pt's son in law, Eliu, as well. He voiced they can't afford to pay out of pocket for rehab and will just resume his outpt therapy that pt is getting from [facility] therapy team.
--- NOTE | 2024-04-15 12:39 | SWNOTE1 ---
ISABELLA received a message and pt can return to [facility] today. ISABELLA called [facility] to see if they have transport, they will call back and let ISABELLA know.
--- NOTE | 2024-04-15 13:11 | SWNOTE1 ---
ISABELLA called Elisa at [facility] and she will find out about transport. ISABELLA received a call back from Elisa and transport is already on the way. ISABELLA received call from [facility] and transport is here. Nursing getting pt ready to go. ISABELLA took packet to the floor. Pt is returning to [facility].
== END 2024-04-15 13:06 | disposition home or self-care (01) ==
LOC: ER 15:27 → MS 15:55
PROVIDERS: Internal Medicine; Admitting Provider Family Medicine; Emergency Provider Student in an Organized Health Care Education/Training Program; PCP Family Medicine; Visit Provider Family Medicine
DX: M54.42 Lumbago with sciatica, left side (principal); M54.41 Lumbago with sciatica, right side; G89.29 Other chronic pain; I25.10 Atherosclerotic heart disease of native coronary artery without angina pectoris; R26.81 Unsteadiness on feet; I10 Essential (primary) hypertension; F33.42 Major depressive disorder, recurrent, in full remission; E78.00 Pure hypercholesterolemia, unspecified; R41.82 Altered mental status, unspecified; R42 Dizziness and giddiness; Z91.81 History of falling; Z98.1 Arthrodesis status; F17.210 Nicotine dependence, cigarettes, uncomplicated; Z79.82 Long term (current) use of aspirin; Z79.02 Long term (current) use of antithrombotics/antiplatelets
CPT/HCPCS: 36415; 70450; 71250; 72125; 74176; 80053; 81003; 84484; 85025; 85610; 85730; 93005; 94761; 94762; 96372; 96374; 96375; 97161; 97165; 99285; G0378; J1650; J2270; J2405

== ENCOUNTER 2024-04-29 17:08 | Observation (INO) | payer MEDICARE, BC, SELFPAY ==
[2024-04-29] VITALS (9 sets, daily range): BP systolic 106–145; BP diastolic 68–91; PULSE 67–73; TEMP 36.6; O2SAT 92–97; BMI 31.6
[2024-04-29 17:20] LABS: Glucometer 127 mg/dL (74-106)
--- OUTSIDE RECORDS SUMMARY | 2024-04-29 17:29 | XMS_ITS | CCD ---
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 Role Phone Bro Sanford Primary Care Physician Unavailab Lior Dow Attending Physician Unavailable MD Genesis Reynolds Primary Care Provider MD Segundo Huston Emergency Provider [phone] MD Sang Bauer Admit Provider MD Sang Bauer Attending Provider LEXIE Mckeon Other Provider Unavailable DO Lawrence Lee Other Provider MD Kaden Summers Other Provider [phone] MD Edinson Bustamante Other Provider MD Itzel Adams Other Provider [phone] MD Ramos Fraga Other Provider LILA Hopper Other Provider MD Cinthia Rae Other Provider MD Ramón Ayala Other Provider MD Flavio Ramirez Other Provider Goldy [facility]- Pily Espinal Other Provider [phone] MD Adelaide Leonardo Other Provider MD Itzel [...] ANA PAULA ., LAVELL Attending Unavailable MOMO KHNA Consulting Unavailable GAIL ., DR HURTADO Primary Care Unavailable AUBREY POON Consulting Unavailable CLEVE, AUBREY Attending Unavailable AUBREY POON Admitting Unavailable HOY ., DR HURTADO Primary Care Unavailable DIAB ., PHILL Admitting Unavailable DIAB ., PHILL Attending Unavailable ALESIA FERNANDEZ Consulting Unavailable KENJI PANDEYISTIN M Consulting Unavailable DIAB ., PHILL Consulting Unavailable HOJung ., DR HURTADO Primary Care Unavailable HAY ., DR GARCIA Attending Unavailable HAY ., DR GARCIA Admitting Unavailable ISAEL, DR SARAI Avendaño Consulting Unavailable HAY ., DR GARCIA Consulting Unavailable HOY ., DR HURTADO Primary Care Unavailable HAY ., DR GARCIA Attending Unavailable HAY ., DR GARCIA Admitting Unavailable GRECHNY ., CAROLINE TAPIA Consulting UnavailMAGGIE Liriano Consulting [...] Unavailable GAIL ., DR HURTADO Admitting Unavailable NADERER, DR BRO Diaz Consulting Unavailable TEMI RUSSO Consulting Unavailable ANA PAULA ., LAVELL Consulting Unavailable AVA NEFF Consulting Unavailable GAIL ., DR HURTADO Primary Care Unavailable HOY ., DR HURTADO Consulting Unavailable GAIL ., DR HURTADO Attending Unavailable GAIL ., DR HURTADO Admitting Unavailable ISAEL, DR SARAI Avendaño Consulting Unavailable HAY ., DR GARCIA Consulting Unavailable SARAI PATEL Consulting Unavailable MAURIZIO TORIBIO Consulting Unavailable YAHAIRA EASLEY Consulting Unavailable GAIL ., DR HURTADO Primary Care Unavailable EFFIE WERNER Attending Unavailable EFFIE WERNER Consulting Unavailable EFFIE WERNER Admitting Unavailable Itzel Adams Attending Unavailable Itzel Adams Attending Unavailable Itzel Adams Attending Unavailable Itzel Adams Attending Unavailable Sharad, Ms. Lilia Jaqueline Moore Attending Genesis Ozuna Primary Care Unavailable Domingo, Benson S Admitting Unavailable Domingo, Benson S Attending Unavailable Ravinder Parkelrahman Admitting Unavailab cabrera Park, Danilo Attending Unavailab Genesis Ivy Primary Care Unavailable Bro Sanford MD Primary Care Provider JUDY HURT Referring Unavailable BRO SANFORD Primary Care UnavailSUSAN Hidalgo Referring Unavailable BRO SANFORD Primary Care Unavailabl e CLARIBEL, BRO PRATHER Primary Care Unavailabl e ANTHONY GREENE Attending Unavailable ELTAHAWJung, EHAB Attending Unavailable ELTAHANNAH, EHAB Attending Unavailable CASTILLOFESTUS CENTENO Admitting Unavailable CASTILLO, FESTUS Attending Unavailable FESTUS CASTILLO Referring Unavailable Allergies Allergy Classification Reported Allergen(s) Allergy Type Date of Onset Reaction(s) Facility (5 sources) Amitriptyline; Translations: [Amitriptyline] Drug Allergy 05-18-20 14 Unknown Reaction [facility] (12 sources) atorvastatin; Translations: [atorvastatin] Drug Allergy 01-24-20 19 Unknown Reaction, Unknown [facility] (6 sources) chlordiazePOXIDE; Translations: [chlordiazepoxide] Drug Allergy 01-24-20 19 Unknown Reaction [facility] (6 sources) clidinium; Translations: [clidinium] Drug Allergy 01-24-20 19 Unknown Reaction [facility] (15 sources) fentaNYL; Translations: [Fentanyl] Drug Allergy 12-27-19 17 Unknown Reaction, Unknown [facility] (8 sources) venlafaxine; Translations: [venlafaxine] Drug Allergy 05-13-20 14 Other (See Comments) [facility] (3 sources) Citalopram; Translations: [Citalopram] Drug Allergy 01-11-20 21 Unknown Reaction [facility] (4 sources) Simvastatin; Translations: [simvastatin] Drug Allergy 07-17-20 22 Unknown Reaction [facility] (6 sources) Succinylcholine; Translations: [Succinylcholine] Drug Allergy 09-08-20 04 Unknown Reaction [facility] (7 sources) Amitriptyline; Translations: [Elavil] Drug Allergy 04-20-20 14 Unknown [facility] (6 sources) chlordiazePOXIDE / clidinium Drug Allergy Unknown [facility] Other (7 sources) venlafaxine; Translations: [Effexor] Drug Allergy 04-06-20 14 Unknown [facility] (1 source) buPROPion Drug Allergy [facility] (1 source) Citalopram Drug Allergy 12-31-19 20 [facility] (1 source) mirabegron Drug Allergy [facility] (1 source) Simvastatin Drug Allergy [facility] (1 source) tiZANidine Drug Allergy [facility] (1 source) Amitriptyline Drug Allergy 05-18-20 14 [email or web address] Phone: Medications Current Medications Medication Drug Class(es) [...] 11, 2018 11:00pm December 23, 2018 4:29pm [id number] 200 actuat albuterol 0.09 mg/actuat metered dose [...] Divalproex Discontinue d 500 MG PO Daily April 19, 2019 11:00pm December 17, 2019 [...] tablet by mouth twice daily Hydrocodone-Aceta minophen (Foster) 5-325 mg tablet Discontinued 1 TAB PO [...] 2019 9:31pm take 3 tablets by mo ut once daily mirtazapine (REMERON QUEENIE-TAB) 15 MG [...] Discontinue d 2 MG PO Twice daily 30 April 19, 2019 11:00pm December 16, 2019 [...] Discontinued 125 MG PO Four times daily 44 January 16, 2018 11:00pm February 08, 2018 [...] Chronic Coronary atherosclerosis and other heart disease (9 sources) Coronary arteriosclerosis; Translations: [Atherosclerotic heart disease of [place] coronary artery without angina pectoris] Onset: 11-25-2014 01-14-2020 Chronic Coronary atherosclerosis and other heart disease (5 sources) Presence of aortocoronary bypass graft; Translations: [Aortocoronary bypass status] Onset: 01-21-2023 07-17-2022 Episodic Crushing injury or internal injury (5 sources) Injury of kidney; Translations: [Acute kidney failure, unspecified] 12-17-2019 Episodic Diabetes mellitus with complications (2 sources) Type 2 diabetes mellitus with other circulatory complications; Translations: [Type 2 diabetes mellitus with other circulatory complications] Onset: 02-14-2024 Chronic Diabetes mellitus without complication (11 sources) Diabetes mellitus; Translations: [Type 2 diabetes mellitus without complications] Onset: 11-25-2014 12-17-2019 Chronic Disorders of lipid metabolism (7 sources) Hyperlipidemia; Translations: [Hyperlipidemia, unspecified] Onset: 11-25-2014 07-18-2022 Chronic Essential hypertension (12 sources) Hypertensive disorder; Translations: [Essential (primary) hypertension] [...] Episodic Occlusion or stenosis of precerebral arteries (5 sources) Carotid artery stenosis; Translations: [Occlusion and stenosis of unspecified carotid artery] Onset: 11-25-2014 12-26-2016 Chronic Other aftercare (1 source) Other detention (current) drug therapy; Translations: [OTH CAFETERIA COOK CURRENT DRUG THERAPY] Onset: 01-21-2023 Episodic Other aftercare (1 source) long term (current) use of antithrombotics/antip latelets; Translations: [CAFETERIA COOK 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/ANTIPLAT LETS] Onset: 12-20-2022 Episodic Other circulatory [...] Translations: [Obesity, unspecified] Onset: 11-25-2014 12-26-2016 Chronic Other screening for suspected conditions (not mental disorders or infectious disease) (2 sources) Abnormal result of other cardiovascular function study; Translations: [Abnormal result of other cardiovascular function study] Onset: 02-18-2024 Episodic Peripheral and visceral atherosclerosis (2 sources) Peripheral [...] 06-25-2022 07-17-2022 Episodic Other aftercare (1 source) nursing home (current) use of aspirin; Translations: [[facility] CURRENT USE OF ASPIRIN] Onset: 07-20-2022 Episodic [...] Test Name Value Interpretation Reference Range Facility Office Visiton 03-26-2024 Follow-up visit [id number] Chacho Mcclellan ph J 1955 M Date Provider Department Center 03/26/2024 271-MITZY TOVAR [facility] Family History Problem Relation Age of Onset No Known Problems Mother No Known Problems Father Family Status - Relation Status Age at Mother Father Level of Service:38276 [place] OFFICE/OUTPATIENT ESTABLISHED MOD MDM 30 MIN [facility] HPon 02-25-2024 H&P reviewed. The pa freddy was examined and there are no changes to the H&P. [facility] NURSNOTEon 02-25-2024 NURSNOTE RN educated pt on d/ c instructions. RN encouraged pt to voice any questions or concerns. Pt verbalizes no questions or concerns at this time. Pt was wheeled off of unit with all of belongings. Normal [facility] Orders Onlyon 02-20-2024 Orders Only [id number] Chacho Mcclellan ph J 1955 M Date Provider Department Center 02/20/2024 ZANDRA TEJADA [facility] AL Heart[facility]AS Family History Problem Relation Age of Onset No Known Problems Mother No Known Problems Father Family Status - Relation Status Age at Mother Father [facility] HPon 02-17-2024 [facility] Cardiology Clinic Note Chief Complaint: New patient here to establish care. Ref from Dr. Reynolds for abnormal stress test. Patient has hx of CABG at [facility] years ago. Stress test was ordered for pre-op clearance prior to back surgery. His son says he takes Plavix for TIA 3-4 years ago. Patient denies chest pain, SOB, palpitations, and lightheadedness/syncope. HPI: Taylor Mcclellan is a 68 y.o. male With a history of extensive vascular disease including coronary artery bypass graft surgery diagnosed in 2007 s/p single-vessel bypass to an occluded right coronary artery, he has a history of carotid stenosis s/p angioplasty and stent placement and then subsequently balloon angioplasty for in-stent restenosis, he also has PAD s/p R CECILIA stent; he is here for preoperative evaluation for upcoming back surgery. Pertinently, the patient did not have chest pain or other symptoms prior to his cardiac cath and bypass surgery in 2007. He currently has no chest pain, he has no significant shortness of breath. No orthopnea, no paroxysmal nocturnal dyspnea, no lower extremity edema. Cardiology ROS: Review of Systems Musculoskeletal: Positive for arthritis and back pain. All other systems reviewed and are negative. Past Medical History He has no past medical history on file. Surgical History He has no past surgical history on file. Social History He has no history on file for tobacco use, alcohol use, and drug use. Family History No family history on file. Allergies Patient has no allergy information on record. Medications No current outpatient medications on file. Last Recorded Vitals BP 102/68 (BP Location: Left arm, Patient Position: Sitting) Pulse 68 Ht 1.778 m (5' 10 ) Wt 94.3 kg (208 lb) SpO2 97% BMI 29.84 kg/m??? Physical Examination: GENERAL: alert and oriented x3, well developed, in no acute distress. HEAD: atraumatic, normocephalic. EYES: DILLAN, EOMI. NECK: trachea midline, no JVD present, no carotid bruits present. CARDIAC: S1, S2 present. RRR. No murmur, rubs, or gallops. RESPIRATORY: CTAB, no increased effort of breathing, no rales, rhonchi, or wheezing. ABDOMEN: soft, nontender, nondistended. EXTREMITIES: no lower extremity edema, peripheral pulses are 2+ bilaterally. No rash/skin discoloration present. NEURO: strength/sensation equal and symmetric in bilateral upper and lower extremities. PSYCH: appropriate mood, affect, and judgement. INVESTIGATIONS: Cardiovascular lab report 02/27/2008 Final impression: Single-vessel coronary artery disease Mild left ventricular systolic dysfunction Patent right internal mammary artery graft to the posterior descending artery Critical right internal carotid artery stenosis Patent right common iliac artery stent Coronary angiography: Left main coronary artery: This segment was normal Left anterior descending coronary artery: This vessel was normal Medial ramus: This vessel was normal Circumflex: This vessel was normal Right coronary artery: This vessel was occluded in its midportion Free right internal mammary artery graft to the posterior descending: This vessel was normal 12-lead EKG 01/20/2024: Sinus rhythm with first-degree AV block Right bundle branch block Left anterior fascicular block Bifascicular block Moderate voltage criteria for LVH, consider normal variant Exercise Cardiolite stress test 02/2024: Transient ischemic dilatation is 1.3. LV EF is 48% Conclusion: 1. Moderately decreased perfusion of the inferior wall with minimal reversibility during rest imaging 2. Global moderate hypokinesis of the left ventricle 3. Abnormal transient ischemic dilatation of the left ventricle 4. Abnormal, low ejection fraction of 48% Assessment: Coronary artery disease, history of coronary artery bypass graft surgery; free right internal mammary artery graft to the right coronary artery Heart failure with mid-range ejection fraction (48%) H/O Carotid stent placement, restenosis and subsequent balloon dilatation Transient ischemic attack 3-4 years ago Peripheral arterial disease, history of right common iliac artery stent Abnormal EKG Abnormal stress test; Inferior perfusion defect, transient ischemic dilatation, reduced ejection fraction Essential hypertension Preoperative evaluation; back surgery Plan: Given the abnormal stress test, and the need for more accurate risk stratification prior to back surgery, I have recommended proceeding with cardiac catheterization. I will not be in the Feed Management Advisor for the next 3 to 4 weeks; we will schedule the procedure with one of my colleagues in the upcoming week or two: coronary and graft angiography via right common femoral approach. We will order carotid Dopplers given his history of carotid stent, restenosis and subsequent balloon angioplasty Continue current medical therapy in the form of dual antiplatelet therapy, moder (more content not included)... Normal [facility] Office Visiton 02-17-2024 Follow-up visit [id number] Chacho Mcclellan ph J 1955 M [facility] Provider Department Center 02/17/2024 Getachew-MITZY TOVAR NASRIN Mccarty Family History Problem Relation Age of Onset No Known Problems Mother No Known Problems Father Family Status - Relation Status Age at Mother Father Level of Service:43974 [place] OFFICE/OUTPATIENT [facility] 60 MINUTES Normal [facility] Orders Onlyon 02-17-2024 Orders Only [id number] Chacho Mcclellan ph J 1955 M Date Provider Department Center 02/17/2024 DIRK JARA CARD Leslee Mccarty Family History Problem Relation Age of Onset No Known Problems Mother No Known Problems Father Family Status - Relation Status Age at Mother Father Normal [facility] Urinalysis w/ Microon 2023 Bacteria TRACE Abnormal NONE [facility] Comment on above: Performed By: #### U AMIC #### [facility] [address] [place], [place] [id number] [address] [address] Supervisor: Sarai Howell MD Bilirubin, SemiQt,Ur Negative Normal NEG [facility] Comment on above: Performed By: #### U AMIC #### [facility] [address] [place], [place] [phone] [address] [address] Supervisor: Sarai Howell MD Blood, Urine Negative Normal NEG [facility] Comment on above: Performed By: #### U AMIC #### [facility] [address] [place], [place] [phone] [address] Supervisor: Sarai Howell MD Clarity (U) Clear Normal CLEAR [facility] Comment on above: Performed By: #### U AMIC #### [facility] [address] [place], [place] [id number] [employer] [address] Supervisor: Sarai Howell MD Color (U) Yellow Normal YEL [facility] Comment on above: Performed By: #### U AMIC #### [facility] [address] [place] [address] Supervisor: Sarai Howell MD Epithelial cells LM Ql (Urine sed) 0 TO 2 Normal 0-5 [facility] Comment on above: Performed By: #### U AMIC #### [facility] [address] [place] [address] [address] Supervisor: Sarai Howell MD Glucose Ql (U) Negative Normal NEG [facility] Comment on above: Performed By: #### U AMIC #### [facility] [address] [place] [address] Supervisor: Sarai Howell MD Ketones Ql (U) Negative Normal NEG [facility] Comment on above: Performed By: #### U AMIC #### [facility] [address] [place], [place] [id number] [address] [address] Supervisor: Sarai Howell MD Leukocyte esterase Test strip Ql (U) Negative Normal NEG [facility] Comment on above: Performed By: #### U AMIC #### [facility] [address] [place], [place] [phone] [address] [address] Supervisor: Sarai Howell MD Mucus Strands TRACE Abnormal NONE [facility] Comment on above: Performed By: #### U AMIC #### [address] [place], [place] [phone] [employer] [address] Supervisor: Sarai Howell MD Nitrite,Ur Negative Normal NEG [facility] Comment on above: Performed By: #### U AMIC #### [facility] [address] [place] [address] Dr[address] [place], [place] [phone] [employer] [address] Supervisor: Sarai Howell MD PH,Ur 7.0 Normal 5.0-9.0 [facility] Comment on above: Performed By: #### U AMIC #### [address] [place], [place] [address] [employer] [address] Supervisor: Sarai Howell MD Protein Ql (U) Negative Normal NEG [facility] Comment on above: Performed By: #### U AMIC #### [facility] [address] [place], [place] [phone] [address] Supervisor: Sarai Howell MD Spec. [place],Ur 1.015 Normal 1.010-1.02 0 [facility] Comment on above: Performed By: #### U AMIC #### [facility] [address] [place] [address] [address] Supervisor: Sarai Howell MD Urine RBC's 0 TO 2 Normal 0-2 [facility] Comment on above: Performed By: #### U AMIC #### [facility] [address] [place] [address] [address] Supervisor: Sarai Howell MD Urine WBC's 2 TO 5 Normal 0-5 [facility] Comment on above: Performed By: #### U AMIC #### [facility] [address] [place] [address] [address] Supervisor: Sarai Howell MD Urobilinogen,Ur Normal Normal 0.0-1.0 [facility] Comment on above: Performed By: #### U AMIC #### [facility] [address] [place] [address] Supervisor: Sarai Howell MD Urinalysis with Microscopico n 11-10-2023 Bacteria LM Ql (Urine sed) TRACE Abnormal None [facility] Bilirubin Ql (U) Negative NEGATIVE [facility] Clarity (U) Clear Clear [facility] Color (U) Yellow Yellow [facility] Epithelial cells LM.HPF (Urine sed) [#/Area] 0 TO 2 [facility] Glucose Test strip (U) [Mass/Vol] Negative NEGATIVE mg/dL [facility] Hemoglobin Auto test strip Ql (U) Negative NEGATIVE [facility] Interpretation and review of laboratory results Abnormal [facility] Ketones (U) [Mass/Vol] Negative NEGAT MELISSA mg/dL [facility] Leukocyte esterase Test strip Ql (U) Negative NEGATIVE [facility] Mucus Ql (Urine sed) TRACE Abnormal None [facility] Nitrite Ql (U) Negative NEGATIVE [facility] pH (U) 7.0 [pH] 5.0 - 9.0 [facility] Protein (U) [Mass/Vol] Negative NEGAT MELISSA mg/dL [facility] RBC LM.HPF (Urine sed) [#/Area] 0 TO 2 [facility] Specific gravity (U) [Rel density] 1.015 1.010 - 1.020 [facility] Urobilinogen Qn (U) Normal 0.0 - 1. 0 EU/dL [facility] WBC LM.HPF (Urine sed) [#/Area] 2 TO 5 [facility] Cult, Bloodon 04-30-2023 Cult, Blood Specimen Description .BLOOD Special Requests lhand, 9ml, 2 bottles Culture NO GROWTH 5 DAYS Report Status FINAL 04/30/2023 [facility] Comment on above: Performed By: #### B CUL2 #### [facility] [address] [place] [address] Supervisor: Sarai Howell MD Cult,Bloodon 04-30-2023 Cult,Blood Specimen Description .BLOOD Special Requests LAC, 20ML Culture NO GROWTH 5 DAYS Report Status FINAL 04/30/2023 [facility] Comment on above: Performed By: #### B C #### [facility] [address] [place] [address] Supervisor: Sarai Howell MD Lipid Profileon 04-26-2023 Cholesterol [Mass/Vol] 171 mg/dL Normal <200 [facility] Comment on above: Result Comment: Cholesterol Guidelines: <200 Desirable 200-240 Borderline >240 Undesirable Performed By: #### L IPR #### [id number] Supervisor: Spencer Tapia MD Cholesterol in HDL [Mass/Vol] 30 mg/dL Low >40 [facility] Comment on above: Result Comment: HDL Guidelines: <40 Undesirable 40-59 Borderline >59 Desirable Performed By: #### L IPR #### [address] [place] [address] Supervisor: Spencer Tapia MD Cholesterol in LDL [Mass/Vol] 112 mg/dL Normal 0-130 [facility] Comment on above: Result Comment: LDL Guidelines: <100 Desirable 100-129 Near to/above Desirable 130-159 Borderline >159 Undesirable Direct (measured) LDL and calculated LDL are not interchangeable tests. Performed By: #### L IPR #### [facility] [address] [place] [address] [phone] Supervisor: Spencer Tapia MD Cholesterol.total/Chol esterol in HDL [Mass ratio] 5.7 {ratio} High <5 [facility] Comment on above: Performed By: #### L IPR #### [facility] [address] [place] [address] [address] Supervisor: Spencer Tapia MD Triglyceride [Mass/Vol] 143 mg/dL Normal <150 [facility] Comment on above: Result Comment: Triglyceride Guidelines: <150 Desirable 150-199 Borderline 200-499 High >499 Very high Based on AHA Guidelines for fasting triglyceride, June 2012. Performed By: #### L IPR #### [facility] [address] [place] [address] Supervisor: Spencer Tapia MD Basic Metabolic Profon 04-25 Anion gap [Moles/Vol] 13 mmol/L Normal - [facility] Comment on above: Performed By: #### T ANJALI AYALA, BMP #### [facility] [address] [place], [place] [phone] [address] Supervisor: Sarai Howell MD BUN/CRE Ratio 14 Normal -20 [facility] Comment on above: Performed By: #### T ANJALI AYALA, BMP #### [facility] [address] [place] [address] [address] Supervisor: Sarai Howell MD Calcium [Mass/Vol] 9.3 mg/dL Normal 8.6-10.4 [facility] Comment on above: Performed By: #### T ANJALI AYALA, BMP #### [facility] [address] [place] [phone] [address] Supervisor: Sarai Howell MD Chloride [Moles/Vol] 101 mmol/L Normal 98-107 [facility] Comment on above: Performed By: #### ANJALI PRADHAN, BMP #### [facility] [address] [place] [address] [address] Supervisor: Sarai Howell MD CO2 [Moles/Vol] 25 mmol/L Normal 20-31 [facility] Comment on above: Performed By: #### ANJALI PRADHAN, BMP #### [facility] [address] [place] [address] [address] Supervisor: Sarai Howell MD Creatinine [Mass/Vol] 1.3 mg/dL High 0.7-1.2 [facility] Comment on above: Performed By: #### T ANJALI AYALA, BMP #### [facility] [address] [place] [address] Supervisor: Sarai Howell MD GFR/1.73 sq M.predicted among non-blacks MDRD (S/P/Bld) [Vol rate/Area] mL/min/{1.73_m2} Normal >60 [facility] Comment on above: Result Comment: [...] By: #### T ANJALI AYALA, BMP #### [facility] [address] [place] [address] [address] Supervisor: Sarai Howell MD Glucose [Mass/Vol] 87 mg/dL Normal 70-99 [facility] Comment on above: Performed By: #### T ANJALI AYALA, BMP #### [facility] [address] [place] [address] Supervisor: Sarai Howell MD Potassium [Moles/Vol] 3.9 mmol/L Normal 3.7-5.3 [facility] Comment on above: Performed By: #### T ANJALI AYALA, BMP #### [facility] [address] [place], [place] [id number] [address] Supervisor: Sarai Howell MD Sodium [Moles/Vol] 139 mmol/L Normal 135-144 [facility] Comment on above: Performed By: #### ANJALI PRADHAN, BMP #### [facility] [address] [place], [place] [phone] [address] Supervisor: Sarai Howell MD Urea nitrogen [Mass/Vol] 18 mg/dL Normal 8-23 [facility] Comment on above: Performed By: #### ANJALI PRADHAN, BMP #### [address] [place], [facility] Supervisor: Sarai Howell MD CBC with Diffon 04-25-2023 Abs. Basophil 0.04 k/uL Normal 0.00-0.20 [facility] Comment on above: Performed By: #### ANJALI PRADHAN, BMP #### [facility] [address] [place] [address] Dr. [place], [facility] Supervisor: Sarai Howell MD Abs.Imm.Granulocyte 0.04 k/uL Normal 0.00-0.30 [facility] Comment on above: Performed By: #### ANJALI PRADHAN, BMP #### [address] [place], [facility] Supervisor: Sarai Howell MD Abs.Neutrophil (Seg) 5.64 k/uL Normal 1.50-8.10 [facility] Comment on above: Performed By: #### ANJALI PRADHAN, BMP #### [address] [place], [place] [address]83 [address] Supervisor: Sarai Howell MD Basophils/100 WBC (Bld) 1 % Normal 0-2 [facility] Comment on above: Performed By: #### ANJALI PRADHAN, BMP #### [facility] [address] [place] [address] Dr. [place], [facility] Supervisor: Sarai Howell MD Eosinophils (Bld) [#/Vol] 0.09 10*3/uL Normal 0.00-0.44 [facility] Comment on above: Performed By: #### ANJALI PRADHAN, BMP #### [facility] [address] [place], [place] [phone] [address] Supervisor: Sarai Howell MD Eosinophils/100 WBC (Bld) 1 % Normal 1-4 [facility] Comment on above: Performed By: #### ANJALI PRADHAN, BMP #### [facility] [address] [place], [place] [address] [address] Supervisor: Sarai Howell MD Erythrocyte distribution width (RBC) [Ratio] 15.4 % High 11.8-14.4 [facility] Comment on above: Performed By: #### ANJALI PRADHAN, BMP #### [address] [place], [place] [phone] Supervisor: Sarai Howell MD Hematocrit (Bld) [Volume fraction] 40.6 % Low 40.7-50.3 [facility] Comment on above: Performed By: #### ANJALI PRADHAN, BMP #### [address] [place], [place] [address] Supervisor: Sarai Howell MD Hemoglobin (Bld) [Mass/Vol] 13.1 g/dL Normal 13.0-17.0 [facility] Comment on above: Performed By: #### ANJALI PRADHAN, BMP #### [facility] [address] [place], [place] [address] [address] Supervisor: Sarai Howell MD Immature granulocytes/100 WBC (Bld) 1 % High 0 [facility] Comment on above: Performed By: #### ANJALI PRADHAN, BMP #### [facility] [address] [place] [address] Supervisor: Sarai Howell MD Lymphocytes (Bld) [#/Vol] 1.86 10*3/uL Normal 1.10-3.70 [facility] Comment on above: Performed By: #### ANJALI PRADHAN, BMP #### [facility] [address] [place], [place] [address] [address] Supervisor: Sarai Howell MD Lymphocytes/100 WBC (Bld) 22 % Low 24-43 [facility] Comment on above: Performed By: #### ANJALI PRADHAN, BMP #### [facility] [address] [place] [phone] [address] Supervisor: Sarai Howell MD MCH (RBC) [Entitic mass] 29.0 pg Normal 25.2-33.5 [facility] Comment on above: Performed By: #### ANJALI PRADHAN, BMP #### [address] [place] [address] Supervisor: Sarai Howell MD MCHC (RBC) [Mass/Vol] 32.3 g/dL Normal 28.4-34.8 [facility] Comment on above: Performed By: #### ANJALI PRADHAN, BMP #### [address] [place] [phone] Supervisor: Sarai Howell MD MCV (RBC) [Entitic vol] 89.8 fL Normal 82.6-102.9 [facility] Comment on above: Performed By: #### ANJALI PRADHAN, BMP #### [address] [place] [id number] Supervisor: Sarai Howell MD Monocytes (Bld) [#/Vol] 0.83 10*3/uL Normal 0.10-1.20 [facility] Comment on above: Performed By: #### ANJALI PRADHAN, BMP #### [facility] [address] [place], [place] [address] [address] Supervisor: Sarai Howell MD Monocytes/100 WBC (Bld) 10 % Normal 3-12 [facility] Comment on above: Performed By: #### ANJALI PRADHAN, BMP #### [facility] [address] [place], [place] [phone] Supervisor: Sarai Howell MD Neutrophil (Seg) 65 % Normal 36-65 [facility] Comment on above: Performed By: #### ANJALI PRADHAN, BMP #### [facility] [address] [place] [address] [address] Supervisor: Sarai Howell MD NRBC Automated 0.0 per 100 WBC Normal 0.0 [facility] Comment on above: Performed By: #### ANJALI PRADHAN, BMP #### [facility] [address] [place], [place] [address] [address] Supervisor: Sarai Howell MD Platelet mean volume (Bld) [Entitic vol] 11.9 fL Normal 8.1-13.5 [facility] Comment on above: Performed By: #### ANJALI PRADHAN, BMP #### [address] [place], [place] 519[address] [address] Supervisor: Sarai Howell MD Platelets (Bld) [#/Vol] 254 10*3/uL Normal 138-453 [facility] Comment on above: Performed By: #### ANJALI PRADHAN, BMP #### [facility] [address] [place] [address] [address] Supervisor: Sarai Howell MD RBC (Bld) [#/Vol] 4.52 10*6/uL Normal 4.21-5.77 [facility] Comment on above: Performed By: #### ANJALI PRADHAN, BMP #### [facility] [address] [place], [place] [phone] Supervisor: Sarai Howell MD WBC (Bld) [#/Vol] 8.5 10*3/uL Normal 3.5-11.3 [facility] Comment on above: Performed By: #### T ANJALI AYALA, BMP #### [facility] [address] [place] [address] Supervisor: Sarai Howell MD CT HEAD WO CONTRASTon [...] Babs Mae MD 04/25/23 Final result Normal [facility] Flu A/B Ag Detectionon 04-25 Flu A Ag Detection Negative Normal NEG [facility] Comment on above: Result Comment: for Influenza A Antigen Performed By: #### F LUABA #### [facility] [address] [place] [address] Supervisor: Sarai Howell MD Flu B Ag Detection Negative Normal NEG [facility] Comment on above: Result Comment: for Influenza B Antigen. Performed By: #### F HENRY #### [facility] [address] [place] [address] Supervisor: Sarai Howell MD Lactic Acidon 04-25-2023 Lactate [Moles/Vol] 1.3 mmol/L Normal 0.5-2.2 [facility] Comment on above: Performed By: #### L ACTIC #### [facility] [address] [place] [address] Supervisor: Sarai Howell MD [id number] 04-25-2023 SARS-CoV-2 (COVID-19) RNA JOSÉ MIGUEL+probe Ql (Unsp spec) Not detected Normal NOTDET [facility] Comment on above: Result Comment: [...] management decisions. Fact sheet for Healthcare Providers: https://www.fda.gov/media/314402/download Fact sheet for Patients: https://www.fda.gov/media/536416/download Methodology: Isothermal Nucleic Acid Amplification Performed By: #### F HENRY #### [facility] [address] [place] [address] Supervisor: Sarai Howell MD Troponinon 04-25-2023 Troponin, High Sens 26 ng/L High 0-22 [facility] Comment on above: Result Comment: High Sensitivity Troponin values cannot be compared with other Troponin methodologies. Performed By: #### F LUABA #### [facility] [address] [place], [place] [address] [address] Supervisor: Sarai Howell MD Troponin, High Sens 27 ng/L High 0-22 [facility] Comment on above: Result Comment: High Sensitivity Troponin values cannot be compared with other Troponin methodologies. Performed By: #### T JAMIE, CDP, BMP #### [facility] [address] [place], [place] [address] Supervisor: Sarai Howell MD UA w/Reflex Cultureon 2022 Bilirubin, SemiQt,Ur SMALL Abnormal NEG [facility] Comment on above: Performed By: #### F LUABA #### [facility] [address] [place] [address] Dr. [place], [place] 8[address] Supervisor: Sarai Howell MD Blood, Urine 3+ Abnormal NEG [facility] Comment on above: Performed By: #### F LUABA #### [facility] [address] [place] [address] [place] [place], [place] 574[address]83 [address] Supervisor: Sarai Howell MD Clarity (U) Cloudy Abnormal CLEAR [facility] Comment on above: Performed By: #### F LUABA #### [facility] [address] [place] [address] Dr. [place], [place] 4823[address] Supervisor: Sarai Howell MD Color (U) Yellow Normal YEL [facility] Comment on above: Performed By: #### F LUABA #### [facility] [address] [place], [place] [address] [address] Supervisor: Sarai Howell MD Glucose Ql (U) Negative Normal NEG [facility] Comment on above: Performed By: #### F LUABA #### [facility] [address] [place], [place] [address] [address] Supervisor: Sarai Howell MD Ketones Ql (U) 1+ mg/dL Abnormal NEG [facility] Comment on above: Performed By: #### F LUABA #### [facility] [address] [place], [place] [address] [address] Supervisor: Sarai Howell MD Leukocyte esterase Test strip Ql (U) TRACE Abnormal NEG [facility] Comment on above: Performed By: #### F LUABA #### [facility] [address] [place], [place] [address] [address] Supervisor: Sarai Howell MD Nitrite,Ur Negative Normal NEG [facility] Comment on above: Performed By: #### F LUABA #### [facility] [address] [place], [place] [address]83 [address] Supervisor: Sarai Howell MD PH,Ur 6.0 Normal 5.0-9.0 [facility] Comment on above: Performed By: #### F LUABA #### [facility] [address] [place], [place] [address] [address] Supervisor: Sarai Howell MD Protein Ql (U) 1+ mg/dL Abnormal NEG [facility] Comment on above: Performed By: #### F LUABA #### [facility] [address] [place], [place] [address]83 [address] Supervisor: Sarai Howell MD Spec. [place],Ur >1.030 High 1.010-1.02 0 [facility] Comment on above: Performed By: #### F LUABA #### [facility] [address] [place], [place] [address]383 [address] Supervisor: Sarai Howell MD Urobilinogen,Ur Normal Normal 0.0-1.0 [facility] Comment on above: Performed By: #### F LUABA #### [facility] [address] [place], [place] [address]83 [address] Supervisor: Sarai Howell MD Urinalysis,Microon 3 Bacteria 1+ Abnormal NONE [facility] Comment on above: Performed By: #### F LUABA #### [facility] [address] [place], [place] 269[address] Supervisor: Sarai Howell MD Epithelial cells LM Ql (Urine sed) None Normal 0-5 [facility] Comment on above: Performed By: #### F LUABA #### [facility] [address] [place], [place] 438[address]83 [address] Supervisor: Sarai Howell MD Mucus Strands TRACE Abnormal NONE [facility] Comment on above: Performed By: #### F LUABA #### [facility] [address] [place], [place] [address] [address] Supervisor: Sarai Howell MD Urine RBC's 20 TO 50 Normal 0-2 [facility] Comment on above: Performed By: #### F LUABA #### [facility] [address] [place], [place] 18[address]83 [address] Supervisor: Sarai Howell MD Urine WBC's 2 TO 5 Normal 0-5 [facility] Comment on above: Performed By: #### F LUABA #### [facility] [address] [place] [address] Supervisor: Sarai Howell MD XR CHEST PORTABLEon 04-25-20 [...] Sarai Henson MD 04/25/23 Final result Normal [facility] BNPon 01-17-2023 Natriuretic peptide B (Bld) [Mass/Vol] 210.0 pg/mL Normal <=900.0 [facility] Comment on above: Performed By: #### B CERTIFIED SURGICAL FIRST ASSISTANT, CMADM, CMP ####[facility] [address] [place] [address]Dr. Donna Malone CARDIAC MJ ADMITon 023 CK [Catalytic activity/Vol] 67 U/L Normal 39-308 [facility] Comment on above: Performed By: #### B CERTIFIED SURGICAL FIRST ASSISTANT, CMADM, CMP ####[facility] [address] [place] [address]Dr. Donna Malone CK.MB [Mass/Vol] 2.51 ng/mL Normal <=3.60 [facility] Comment on above: Performed By: #### B CERTIFIED SURGICAL FIRST ASSISTANT, CMADM, CMP ####[facility] [address] [place] [address]Dr. Donna Malone HSTROP 9.2 pg/mL Normal 4.0-76.1 [facility] Comment on above: Result Comment: CUT- OFF POINTS HAVE BEEN ESTABLISHED BASED ON THE FOURTH UNIVERSAL DEFINITIONS OF MYOCARDIALINFARCTION. THE UPPER REFERENCE LIMIT (URL) OF TROPONIN, DEFINED THE 99TH PERCENTILE OFcTnI DISTRIBUTION IN A REFERENCE POPULATION, HAS BEEN CONFIRMED THE DECISION THRESHOLDFOR [place] DIAGNOSIS. Performed By: #### B CERTIFIED SURGICAL FIRST ASSISTANT, CMADM, CMP ####[facility] [address] [place] [address]Dr. Donna Malone BINDU 68 ng/mL Normal 16-96 [facility] Comment on above: Performed By: #### B CERTIFIED SURGICAL FIRST ASSISTANT, CMADM, CMP ####[facility] [address] [place] [address]Dr. Donna Malone CBC AUTO DIFFon 01-17-2023 BASO # 0.1 103/ul Normal 0.0-0.1 [facility] Comment on above: Performed By: #### C BC ####[facility] [address] [place] [address]Dr. Donna Malone Basophils/100 WBC (Bld) 0.8 % Normal 0.2-2.0 [facility] Comment on above: Performed By: #### C BC ####[facility] [address] [place] [address]Dr. Donna Malone EO # 0.1 103/ul Normal 0.0-0.7 [facility] Comment on above: Performed By: #### C BC ####[facility] [address] [place], [place] [address]Dr. Donna Malone Eosinophils/100 WBC (Bld) 1.4 % Normal 0.9-7.0 [facility] Comment on above: Performed By: #### C BC ####[facility] [address] [place], [place] [address]Dr. Donna Malone Erythrocyte distribution width (RBC) [Ratio] 14.6 % Normal 11.0-15.0 [facility] Comment on above: Performed By: #### C BC ####[facility] [address] [place], [place] [address]Dr. Donna Malone Hematocrit (Bld) [Volume fraction] 43.9 % Normal 42.0-54.0 [facility] Comment on above: Performed By: #### C BC ####[facility] [address] [place], [place] [address]Dr. Donna Malone Hemoglobin (Bld) [Mass/Vol] 14.2 g/dL Normal 14.0-18.0 [facility] Comment on above: Performed By: #### C BC ####[facility] [address] [place], [place] [address]Dr. Donna Malone IG # 0.04 10e3/ul Critically high 0.00-0.03 [facility] Comment on above: Performed By: #### C BC ####[facility] [address] [place], [place] [address]Dr. Rubyyvan Malone IG % 0.4 % Normal 0.0-0.5 [facility] Comment on above: Performed By: #### C BC ####[facility] [address] [place], [place] [address]Dr. Donna Malone LYMPH # 2.3 103/ul Normal 1.2-3.8 [facility] Comment on above: Performed By: #### C BC ####[facility] [address] [place] [address]Dr. Rubyyvan Malone Lymphocytes/100 WBC (Bld) 25.4 % Normal 20.5-60.0 [facility] Comment on above: Performed By: #### C BC ####[facility] [address] [place] [address]Dr. Donna Malone MANUAL DIFF REQ NO Normal [facility] Comment on above: Performed By: #### C BC ####[facility] [address] [place] [address]Dr. Donna Malone MCH (RBC) [Entitic mass] 29.6 pg Normal 25.9-34.0 [facility] Comment on above: Performed By: #### C BC ####[facility] [address] [place], [place] [address]Dr. Donna Malone MCHC (RBC) [Mass/Vol] 32.3 g/dL Normal 29.9-35.2 [facility] Comment on above: Performed By: #### C BC ####[facility] [address] [place], [place] [address]Dr. Donna Malone MCV (RBC) [Entitic vol] 91.5 fL Normal 80.0-94.0 [facility] Comment on above: Performed By: #### C BC ####[facility] [address] [place], [place] [address]Dr. Donna Malone MONO # 0.7 103/ul Normal 0.3-0.8 [facility] Comment on above: Performed By: #### C BC ####[facility] [address] [place], [place] [address]Dr. Donna Malone Monocytes/100 WBC (Bld) 7.5 % Normal 1.7-12.0 [facility] Comment on above: Performed By: #### C BC ####[facility] [address] [place], [place] [address]Dr. Donna Malone NEUT # 5.9 103/ul Normal 1.4-6.5 [facility] Comment on above: Performed By: #### C BC ####[facility] [address] [place] [address]Dr. Donna Faisal Neutrophils/100 WBC (Bld) 64.5 % Normal 43.0-75.0 [facility] Comment on above: Performed By: #### C BC ####[facility] [address] [place] [address]Dr. Rubyyvan Faisal Platelet mean volume (Bld) [Entitic vol] 10.6 fL Normal 9.5-13.5 [facility] Comment on above: Performed By: #### C BC ####[facility] [address] [place] [address]Dr. Donna Malone PLT 296 103/ul Normal 150-450 [facility] Comment on above: Performed By: #### C BC ####[facility] [address] [place] [address]Dr. Donna Malone RBC 4.80 106/ul Normal 4.70-6.10 [facility] Comment on above: Performed By: #### C BC ####[facility] [address] [place] [address]Dr. Rubyyvan Faisal WBC 9.1 103/ul Normal 4.0-11.0 [facility] Comment on above: Performed By: #### C BC ####[facility] [address] [place] [address]Dr. Donna Malone CT CSPINE WO CONon 3 CT CSPINE WO CON Normal [facility] CT HEAD WO CONon 3 CT HEAD WO CON Normal [facility] CT LSPINE WO CONon 3 CT LSPINE WO CON Normal [facility] PROF 14(COMP METB)on 023 Albumin [Mass/Vol] 3.3 g/dL Critically low 3.4-5.0 [facility] Comment on above: Performed By: #### B CERTIFIED SURGICAL FIRST ASSISTANT, CMADM, CMP ####[facility] [address] [place] [address]Dr. Donna Malone Albumin/Globulin [Mass ratio] 0.8 {ratio} Normal [facility] Comment on above: Performed By: #### B CERTIFIED SURGICAL FIRST ASSISTANT, CMADM, CMP ####[facility] [address] Donna Malone ALP [Catalytic activity/Vol] 55 U/L Normal 46-116 [facility] Comment on above: Performed By: #### B CERTIFIED SURGICAL FIRST ASSISTANT, CMADM, CMP ####[facility] [address] [place] [address]Dr. Donna Malone ALT [Catalytic activity/Vol] 15 U/L Critically low 16-63 [facility] Comment on above: Performed By: #### B CERTIFIED SURGICAL FIRST ASSISTANT, CMADM, CMP ####[facility] [address] Donna Malone Anion gap [Moles/Vol] 9.6 mmol/L Normal [facility] Comment on above: Performed By: #### B CERTIFIED SURGICAL FIRST ASSISTANT, CMADM, CMP ####[facility] [address] [place] [address]. Donna Malone AST [Catalytic activity/Vol] 14 U/L Critically low 15-37 [facility] Comment on above: Performed By: #### B CERTIFIED SURGICAL FIRST ASSISTANT, CMADM, CMP ####[facility] [address] [place] [address]. Donna Malone Bilirubin [Mass/Vol] 0.2 mg/dL Normal 0.2-1.0 [facility] Comment on above: Performed By: #### B CERTIFIED SURGICAL FIRST ASSISTANT, CMADM, CMP ####[facility] [address] [place] [address]. Donna Malone Calcium [Mass/Vol] 8.6 mg/dL Normal 8.5-10.1 [facility] Comment on above: Performed By: #### B CERTIFIED SURGICAL FIRST ASSISTANT, CMADM, CMP ####[facility] [address] [place] [address]. Donna Malone Chloride [Moles/Vol] 107 mmol/L Normal 98-107 [facility] Comment on above: Performed By: #### B CERTIFIED SURGICAL FIRST ASSISTANT, CMADM, CMP ####[facility] [address] [place] [address]Dr. Donna Malone CO2 [Moles/Vol] 25.9 mmol/L Normal 21.0-32.0 [facility] Comment on above: Performed By: #### B CERTIFIED SURGICAL FIRST ASSISTANT, CMADM, CMP ####[facility] [address] [place], [place] [address]Dr. Donna Malone Creatinine [Mass/Vol] 1.12 mg/dL Normal 0.70-1.30 [facility] Comment on above: Performed By: #### B CERTIFIED SURGICAL FIRST ASSISTANT, CMADM, CMP ####[facility] [address] [place], [place] [address]Dr. Donna Faisal EGFR-AF RWANDAN >60 Normal >=60 [facility] Comment on above: Performed By: #### B CERTIFIED SURGICAL FIRST ASSISTANT, CMADM, CMP ####[facility] [address] [place], [place] [address]Dr. Donna Malone EGFR-NON AF RWANDAN >60 Normal >=60 [facility] Comment on above: Performed By: #### B CERTIFIED SURGICAL FIRST ASSISTANT, CMADM, CMP ####[facility] [address] [place], [place] [address]Dr. Donna Faisal Globulin (S) [Mass/Vol] 4.2 g/dL Normal [facility] Comment on above: Performed By: #### B CERTIFIED SURGICAL FIRST ASSISTANT, CMADM, CMP ####[facility] [address] [place], [place] [address]Dr. Donna Malone Glucose [Mass/Vol] 163 mg/dL Critically high 74-[address] [facility] Comment on above: Performed By: #### B CERTIFIED SURGICAL FIRST ASSISTANT, CMADM, CMP ####[facility] [address] [place] [address]Dr. Donna Faisal Potassium [Moles/Vol] 4.5 mmol/L Normal 3.5-5.1 [facility] Comment on above: Performed By: #### B CERTIFIED SURGICAL FIRST ASSISTANT, CMADM, CMP ####[facility] [address] [place], [place] [address]Dr. Donna Malone Protein [Mass/Vol] 7.5 g/dL Normal 6.4-8.2 [facility] Comment on above: Performed By: #### B CERTIFIED SURGICAL FIRST ASSISTANT, CMADM, CMP ####[facility] N[address]zb[address] [place] [address]Dr. Donna Malone Sodium [Moles/Vol] 138 mmol/L Normal 136-145 [facility] Comment on above: Performed By: #### B CERTIFIED SURGICAL FIRST ASSISTANT, CMADM, CMP ####[facility] Zqzfgnsgbg[address] [place], [place] [address]Dr. Donna Malone Urea nitrogen [Mass/Vol] 11.0 mg/dL Normal 7.0-18.0 [facility] Comment on above: Performed By: #### B CERTIFIED SURGICAL FIRST ASSISTANT, CMADM, CMP ####[facility] Rqanofwdjn[address] [place], [place] [address]Dr. Donna Malone Urea nitrogen/Creatinine [Mass ratio] 9.8 mg/mg Normal [facility] Comment on above: Performed By: #### B CERTIFIED SURGICAL FIRST ASSISTANT, CMADM, CMP ####[facility] Wcnkktnjas[address] [place], [place] [address]Dr. Donna Malone PROTIMEon 01-17-2023 INR Coag (PPP) [Relative time] 0.94 {INR} Normal [facility] Comment on above: Performed By: #### P TT, PT ####[facility] Qabrgiueen[address] [place], [place] [address]Dr. Donna Malone INR GUIDELINES SEE BELOW Normal [facility] Comment on above: Result Comment: FLORESITA RED INR: 2.0 - 3.0 CONDITIONS NOT LISTED BELOW 2.5 - 3.5 FOR PROSTHETIC HEART VALVE REPLACEMENT 2.5 - 3.5 RECURRENT THROMBOSIS Performed By: #### P TT, PT ####[facility] Anukcmfeon[address] [place], [place] [address]Dr. Donna Malone PT Coag (PPP) [Time] 10.0 s Normal 9.0-11.6 [facility] Comment on above: Performed By: #### P TT, PT ####[facility] Djfrqwcrdy[address] [place], [place] [address]Dr. Donna Malone PTTon 01-17-2023 aPTT Coag (Bld) [Time] 29.6 s Normal 22.3-36.2 [facility] Comment on above: Performed By: #### P TT, PT ####[facility] Yqzjaselzz69[address] [place], [place] [address]Dr. Donna Malone CBC AUTO DIFFon 11-17-2022 BASO # 0.0 103/ul Normal 0.0-0.1 [facility] Comment on above: Performed By: #### C BC ####[facility] Mgjzyqaxec[address] [place], [place] [address]Dr. Donna Faisal Basophils/100 WBC (Bld) 0.2 % Normal 0.2-2.0 [facility] Comment on above: Performed By: #### C BC ####[facility] Ptemyzhzgr[address] [place], [place] [address]Dr. Donna Malone EO # 0.0 103/ul Normal 0.0-0.7 [facility] Comment on above: Performed By: #### C BC ####[facility] Iizfnmblhw[address] [place], [place] [address]Dr. Donna Malone Eosinophils/100 WBC (Bld) 0.0 % Critically low 0.9-7.0 [facility] Comment on above: Performed By: #### C BC ####[facility] Bppmdnjnmg[address] [place], [place] [address]Dr. Donna Malone Erythrocyte distribution width (RBC) [Ratio] 14.5 % Normal 11.0-15.0 [facility] Comment on above: Performed By: #### C BC ####[facility] Jvqgarhdrn7[address] [place], [place] [address]Dr. Donna Malone Hematocrit (Bld) [Volume fraction] 39.6 % Critically low 42.0-54.0 [facility] Comment on above: Performed By: #### C BC ####[facility] Wsdvlbdtou[address] [place], [place] [address]Dr. Donna Malone Hemoglobin (Bld) [Mass/Vol] 13.3 g/dL Critically low 14.0-18.0 [facility] Comment on above: Performed By: #### C BC ####[facility] Ulvzpancrp[address] [place], [place] [address]Dr. Donna Malone IG # 0.06 10e3/ul Critically high 0.00-0.03 [facility] Comment on above: Performed By: #### C BC ####[facility] [address]knqbvbn[address] [place] [address]DrElizabeth Malone IG % 0.5 % Normal 0.0-0.5 [facility] Comment on above: Performed By: #### C BC ####[facility] C[address]xlfwjy[address] [place] [address]DrElizabeth Malone LYMPH # 1.0 103/ul Critically low 1.2-3.8 [facility] Comment on above: Performed By: #### C BC ####[facility] [address]iltqcji[address] [place] [address]DrElizabeth Malone Lymphocytes/100 WBC (Bld) 8.3 % Critically low 20.5-60.0 [facility] Comment on above: Performed By: #### C BC ####[facility] Ixvhadsqot85[address] [place] [address]DrElizabeth Malone MANUAL DIFF REQ NO Normal [facility] Comment on above: Performed By: #### C BC ####[facility] Ynntizbwkx29[address] [place] [address]DrElizabeth Malone MCH (RBC) [Entitic mass] 29.4 pg Normal 25.9-34.0 [facility] Comment on above: Performed By: #### C BC ####[facility] Ryfbkjxxdr38[address] [place] [address]DrElizabeth Malone MCHC (RBC) [Mass/Vol] 33.6 g/dL Normal 29.9-35.2 [facility] Comment on above: Performed By: #### C BC ####[facility] [address]rmqiudhu[address] [place] [address]DrElizabeth Malone MCV (RBC) [Entitic vol] 87.6 fL Normal 80.0-94.0 [facility] Comment on above: Performed By: #### C BC ####[facility] T[address]qsajamgn4[address] [place] [address]DrElizabeth Malone MONO # 0.8 103/ul Normal 0.3-0.8 [facility] Comment on above: Performed By: #### C BC ####[facility] Hzwcfdbtdi44[address] [place] [address]Dr. Donna Malone Monocytes/100 WBC (Bld) 6.6 % Normal 1.7-12.0 [facility] Comment on above: Performed By: #### C BC ####[facility] R[address]ndopnrpf[address] [place] [address]Dr. Donna Malone NEUT # 10.2 103/ul Critically high 1.4-6.5 [facility] Comment on above: Performed By: #### C BC ####[facility] E[address]vnkbrk[address] [place] [address]Dr. Donna Malone Neutrophils/100 WBC (Bld) 84.4 % Critically high 43.0-75.0 [facility] Comment on above: Performed By: #### C BC ####[facility] Nmdwesgrcw25[address] [place], [place] [address]Dr. Donna Malone Platelet mean volume (Bld) [Entitic vol] 11.5 fL Normal 9.5-13.5 [facility] Comment on above: Performed By: #### C BC ####[facility] Rrboisuywz[address] [place] [address]Dr. Donna Malone PLT 204 103/ul Normal 150-450 [facility] Comment on above: Performed By: #### C BC ####[facility] Impivnldsy[address] [place] [address]Dr. Donna Malone RBC 4.52 106/ul Critically low 4.70-6.10 [facility] Comment on above: Performed By: #### C BC ####[facility] Niykwysdum[address] [place] [address]Dr. Donna Malone WBC 12.0 103/ul Critically high 4.0-11.0 [facility] Comment on above: Performed By: #### C BC ####[facility] Hubuodpibf[address] [place], [place] [address]DrElizabeth Donna Faisal MAGNESIUMon 11-17-2022 Magnesium [Mass/Vol] 1.9 mg/dL Normal 1.8-2.4 [facility] Comment on above: Performed By: #### C MP, MG ####[facility] Ihtvhbkvnd94[address] [place] [address]Dr. Donna Malone PROF 14(COMP METB)on 023 Albumin [Mass/Vol] 3.2 g/dL Critically low 3.4-5.0 [facility] Comment on above: Performed By: #### C MP, MG ####[facility] Bewvpeqrkb86[address] [place] [address]Dr. Donna Malone Albumin/Globulin [Mass ratio] 1.0 {ratio} Normal [facility] Comment on above: Performed By: #### C MP, MG ####[facility] Ngysollugt[address] [place], [place] [address]Dr. Donna Malone ALP [Catalytic activity/Vol] 51 U/L Normal 46-116 [facility] Comment on above: Performed By: #### C MP, MG ####[facility] Dxpjldtcgj[address] [place], [place] [address]Dr. Donna Malone ALT [Catalytic activity/Vol] 16 U/L Normal 16-63 [facility] Comment on above: Performed By: #### C MP, MG ####[facility] Reakwtcdqz4[address] [place] [address]Dr. Donna Malone Anion gap [Moles/Vol] 14.7 mmol/L Normal [facility] Comment on above: Performed By: #### C MP, MG ####[facility] Jnqdioymyl6[address] [place], [place] [address]Dr. Donna Malone AST [Catalytic activity/Vol] 24 U/L Normal 15-37 [facility] Comment on above: Performed By: #### C MP, MG ####[facility] S[address]ajdktgii34[address] [place] [address]Dr. Donna Malone Bilirubin [Mass/Vol] 0.5 mg/dL Normal 0.2-1.0 [facility] Comment on above: Performed By: #### C MP, MG ####[facility] Pdoyqdnurc44[address] [place] [id number]. Donna Malone Calcium [Mass/Vol] 8.6 mg/dL Normal 8.5-10.1 [facility] Comment on above: Performed By: #### C MP, MG ####[facility] P[address]oiwlhtu[address] [place] [id number]. Donna Malone Chloride [Moles/Vol] 108 mmol/L Critically high 98-107 [facility] Comment on above: Performed By: #### C MP, MG ####[facility] H[address]bybwbnpe[address] [place] [address]Dr. Donna Malone CO2 [Moles/Vol] 21.6 mmol/L Normal 21.0-32.0 [facility] Comment on above: Performed By: #### C MP, MG ####[facility] Rxbrwbyzdk[address] [place] [address]Dr. Donna Malone Creatinine [Mass/Vol] 0.83 mg/dL Normal 0.70-1.30 [facility] Comment on above: Performed By: #### C MP, MG ####[facility] D[address]xttsnlaj13[address] [place] [address]Dr. Donna Malone EGFR-AF RWANDAN >60 Normal >=60 [facility] Comment on above: Performed By: #### C MP, MG ####[facility] Qsmrotgqwt[address] [place] [address]Dr. Donna Malone EGFR-NON AF RWANDAN >60 Normal >=60 [facility] Comment on above: Performed By: #### C MP, MG ####[facility] Uftxgqpyny65[address] [place] [id number]. Donna Malone Globulin (S) [Mass/Vol] 3.2 g/dL Normal [facility] Comment on above: Performed By: #### C MP, MG ####[facility] Cjkctszigs60[address] [place] [address]Dr. Donna Malone Glucose [Mass/Vol] 162 mg/dL Critically high 74-106 [facility] Comment on above: Performed By: #### C MP, MG ####[facility] Znudejdqzl040[address] [place] [address]Dr. Donna Malone Potassium [Moles/Vol] 3.3 mmol/L Critically low 3.5-5.1 [facility] Comment on above: Performed By: #### C MP, MG ####[facility] Ymstbyuzzh[address] [place], [place] [address]Dr. Donna Faisal Protein [Mass/Vol] 6.4 g/dL Normal 6.4-8.2 [facility] Comment on above: Performed By: #### C MP, MG ####[facility] Rouzfalbyt[address] [place], [place] [address]Dr. Rubyyvan Malone Sodium [Moles/Vol] 141 mmol/L Normal 136-145 [facility] Comment on above: Performed By: #### C MP, MG ####[facility] Pfzewulewt[address] [place], [place] [address]Dr. Donna Malone Urea nitrogen [Mass/Vol] 12.0 mg/dL Normal 7.0-18.0 [facility] Comment on above: Performed By: #### C MP, MG ####[facility] Bemvzprljb07[address] [place], [place] [address]Dr. Rubyyvan Malone Urea nitrogen/Creatinine [Mass ratio] 14.5 mg/mg Normal [facility] Comment on above: Performed By: #### C MP, MG ####[facility] Rqjrsyvgmn[address] [place], [place] [address]Dr. Rubyyvan Malone AMMONIAon 11-16-2022 Ammonia (P) [Mass/Vol] ug/dL Critically low 11-32 [facility] Comment on above: Performed By: #### A MM ####[facility] Iklbftvcdm[address] [place], [place] [address]Dr. Donna Faisal CBC AUTO DIFFon 11-16-2022 BASO # 0.0 103/ul Normal 0.0-0.1 [facility] Comment on above: Performed By: #### C BC ####[facility] Dnsltavftg[address] [place], [place] [address]Dr. Rubyyvan Malone Basophils/100 WBC (Bld) 0.2 % Normal 0.2-2.0 [facility] Comment on above: Performed By: #### C BC ####[facility] Wywsjszkjj34[address] [place] [address]Dr. Rubyyvan Malone EO # 0.0 103/ul Normal 0.0-0.7 [facility] Comment on above: Performed By: #### C BC ####[facility] Ohlrtfpflr[address] [place] [address]Dr. Donna Malone Eosinophils/100 WBC (Bld) 0.0 % Critically low 0.9-7.0 [facility] Comment on above: Performed By: #### C BC ####[facility] Pltlovxqir4653 [place] [address]Dr. Donna Malone Erythrocyte distribution width (RBC) [Ratio] 14.4 % Normal 11.0-15.0 [facility] Comment on above: Performed By: #### C BC ####[facility] Fwiuexbcjl7[address] [place], [place] [address]DrElizabeth Malone Hematocrit (Bld) [Volume fraction] 38.6 % Critically low 42.0-54.0 [facility] Comment on above: Performed By: #### C BC ####[facility] Jqavovwrwo27[address] [place], [place] [address]DrElizabeth Rubyyvan Malone Hemoglobin (Bld) [Mass/Vol] 13.1 g/dL Critically low 14.0-18.0 [facility] Comment on above: Performed By: #### C BC ####[facility] Oiuxuifmua5[address] [place], [place] [address]DrElizabeth Malone IG # 0.05 10e3/ul Critically high 0.00-0.03 [facility] Comment on above: Performed By: #### C BC ####[facility] Brrsndbzwq49[address] [place], [place] [address]DrElizabeth Malone IG % 0.5 % Normal 0.0-0.5 [facility] Comment on above: Performed By: #### C BC ####[facility] Wuuzosdgsv8[address] [place], [place] [address]DrElizabeth Malone LYMPH # 1.0 103/ul Critically low 1.2-3.8 [facility] Comment on above: Performed By: #### C BC ####[facility] Tozysonfyu28[address] [place] [address]Dr. Donna Malone Lymphocytes/100 WBC (Bld) 10.8 % Critically low 20.5-60.0 [facility] Comment on above: Performed By: #### C BC ####[facility] Ialghltsab9200 [place] [address]DrElizabeth Malone MANUAL DIFF REQ NO Normal [facility] Comment on above: Performed By: #### C BC ####[facility] Oebtjonkzl78[address] [place] [address]DrElizabeth Malone MCH (RBC) [Entitic mass] 29.4 pg Normal 25.9-34.0 [facility] Comment on above: Performed By: #### C BC ####[facility] Zjthpqayuk[address] [place], [place] [address]Dr. Donna Malone MCHC (RBC) [Mass/Vol] 33.9 g/dL Normal 29.9-35.2 [facility] Comment on above: Performed By: #### C BC ####[facility] Nczqoooloc[address] [place], [place] [address]DrElizabeth Malone MCV (RBC) [Entitic vol] 86.7 fL Normal 80.0-94.0 [facility] Comment on above: Performed By: #### C BC ####[facility] Pciiaiznvk[address] [place], [place] [address]Dr. Donna Malone MONO # 0.4 103/ul Normal 0.3-0.8 [facility] Comment on above: Performed By: #### C BC ####[facility] Uznrhilnam45[address] [place], [place] [address]Dr. Donna Malone Monocytes/100 WBC (Bld) 4.4 % Normal 1.7-12.0 [facility] Comment on above: Performed By: #### C BC ####[facility] Tjwgpoaoyy50[address] [place], [place] [address]DrElizabeth Malone NEUT # 7.9 103/ul Critically high 1.4-6.5 [facility] Comment on above: Performed By: #### C BC ####[facility] Pecdwciset[address] [place] [address]Dr. Donna Malone Neutrophils/100 WBC (Bld) 84.1 % Critically high 43.0-75.0 [facility] Comment on above: Performed By: #### C BC ####[facility] Llpfamzjwz6692 [place] [address]Dr. Donna Faisal Platelet mean volume (Bld) [Entitic vol] 11.3 fL Normal 9.5-13.5 [facility] Comment on above: Performed By: #### C BC ####[facility] Bfuietqzgt[address] [place], [place] [address]Dr. Rubyyvan Faisal PLT 201 103/ul Normal 150-450 [facility] Comment on above: Performed By: #### C BC ####[facility] Zmwpfzwltr[address] [place], [place] [address]Dr. Donna Malone RBC 4.45 106/ul Critically low 4.70-6.10 [facility] Comment on above: Performed By: #### C BC ####[facility] Uvyshqgulp[address] [place], [place] [address]Dr. Donna Malone WBC 9.3 103/ul Normal 4.0-11.0 [facility] Comment on above: Performed By: #### C BC ####[facility] Lbdutpacbr[address] [place], [place] [address]Dr. Donna Faisal GLYCOHEMOGLOBIN A1Con 2022 ADA RECOMMENDATION SEE BELOW Normal [facility] Comment on above: Result Comment: ADA RECOMMENDED LIMIT 4.0 - 6.0 ADA THERAPEUTIC TARGET < 7.0 ACTION SUGGESTED > 7.0 Performed By: #### A 1C ####[facility] Csmtugxvcy[address] [place], [place] [address]Dr. Rubyyvan Malone Glucose [Mass/Vol] 128 mg/dL Normal [facility] Comment on above: Performed By: #### A 1C ####[facility] Yfpcjalkei474[address] [place], [place] [address]Dr. Donna Malone HbA1c (Bld) [Mass fraction] 6.1 % Normal 4.5-6.2 [facility] Comment on above: Performed By: #### A 1C ####[facility] [address]zqzbtlqrv[address] [place], [place] [address]Dr. Donna Malone MAGNESIUMon 11-16-2022 Magnesium [Mass/Vol] 1.8 mg/dL Normal 1.8-2.4 [facility] Comment on above: Performed By: #### C MP, MG ####[facility] Hwhmrpeeds[address] [place] [address]Dr. Donna Malone POINT OF CARE GLUCOSEon 11-07 Glucose [Mass/Vol] 170 mg/dL Critically high 74-106 [facility] Comment on above: Performed By: #### P OCGLUC ####[facility] Jrlyfmugch[address] [place], [place] [address]Dr. Donna Malone Glucose [Mass/Vol] 158 mg/dL Critically high 74-106 [facility] Comment on above: Performed By: #### P OCGLUC ####[facility] Ozvneowuem05[address] [place] [address]Dr. Donna Malone Glucose [Mass/Vol] 176 mg/dL Critically high -106 [facility] Comment on above: Performed By: #### P OCGLUC ####[facility] Hrqvwlsfnl5757 [place] [address]Dr. Donna Malone PROF 14(COMP METB)on 023 Albumin [Mass/Vol] 3.1 g/dL Critically low 3.4-5.0 [facility] Comment on above: Performed By: #### C MP, MG ####[facility] Toqcfhpunr6016 [place] [address]Dr. Donna Malone Albumin/Globulin [Mass ratio] 0.9 {ratio} Normal [facility] Comment on above: Performed By: #### C MP, MG ####[facility] Vhkisletdb5392 [place] [address]Dr. Donna Malone ALP [Catalytic activity/Vol] 52 U/L Normal 46-116 [facility] Comment on above: Performed By: #### C MP, MG ####[facility] Sfntqikkoy0172 [place] [address]Dr. Donna Malone ALT [Catalytic activity/Vol] 13 U/L Critically low 16-63 [facility] Comment on above: Performed By: #### C MP, MG ####[facility] Xvtttyqmmc60[address] [place] [address]Dr. Donna Malone Anion gap [Moles/Vol] 15.7 mmol/L Normal [facility] Comment on above: Performed By: #### C MP, MG ####[facility] Iapiuryakb[address] [place], [place] [address]Dr. Donna Malone AST [Catalytic activity/Vol] 16 U/L Normal 15-37 [facility] Comment on above: Performed By: #### C MP, MG ####[facility] Supjqzkzmw[address] [place], [place] [address]Dr. Donna Malone Bilirubin [Mass/Vol] 0.5 mg/dL Normal 0.2-1.0 [facility] Comment on above: Performed By: #### C MP, MG ####[facility] Nwpsiklbri48[address] [place], [place] [address]Dr. Donna Malone Calcium [Mass/Vol] 8.6 mg/dL Normal 8.5-10.1 [facility] Comment on above: Performed By: #### C MP, MG ####[facility] Wkatfxdriv84[address] [place], [place] [address]Dr. Donna Malone Chloride [Moles/Vol] 109 mmol/L Critically high 98-107 [facility] Comment on above: Performed By: #### C MP, MG ####[facility] Jpeikazrlk[address] [place], [place] [address]Dr. Donna Malone CO2 [Moles/Vol] 21.7 mmol/L Normal 21.0-32.0 [facility] Comment on above: Performed By: #### C MP, MG ####[facility] Absizvqazn[address] [place], [place] [address]Dr. Donna Malone Creatinine [Mass/Vol] 0.99 mg/dL Normal 0.70-1.30 [facility] Comment on above: Performed By: #### C MP, MG ####[facility] Hxmkbwbtuq7[address] [place] [id number]. Donna Malone EGFR-AF RWANDAN >60 Normal >=60 [facility] Comment on above: Performed By: #### C MP, MG ####[facility] Pyyglkjnnr36[address] [place] [address]Dr. Donna Malone EGFR-NON AF RWANDAN >60 Normal >=60 [facility] Comment on above: Performed By: #### C MP, MG ####[facility] Jrpumcbfgx9679 [place] [address]Dr. Donna Malone Globulin (S) [Mass/Vol] 3.3 g/dL Normal [facility] Comment on above: Performed By: #### C MP, MG ####[facility] Qzzivncrjp4280 [place] [address]Dr. Donna Malone Glucose [Mass/Vol] 168 mg/dL Critically high 74-106 [facility] Comment on above: Performed By: #### C MP, MG ####[facility] Wmjlfhsiic6133 [place] [id number]. Donna Malone Potassium [Moles/Vol] 3.4 mmol/L Critically low 3.5-5.1 [facility] Comment on above: Performed By: #### C MP, MG ####[facility] Tfflcfeocu3189 [place] [address]Dr. Donna Malone Protein [Mass/Vol] 6.4 g/dL Normal 6.4-8.2 [facility] Comment on above: Performed By: #### C MP, MG ####[facility] Kqldtyqies8549 [place] [id number]. Donna Malone Sodium [Moles/Vol] 143 mmol/L Normal 136-145 [facility] Comment on above: Performed By: #### C MP, MG ####[facility] Zpqvdufzla9934 [place] [address]Dr. Donna Malone Urea nitrogen [Mass/Vol] 9.0 mg/dL Normal 7.0-18.0 [facility] Comment on above: Performed By: #### C MP, MG ####[facility] Iamacwihtd[address] [place], [place] [address]Dr. Donna Malone Urea nitrogen/Creatinine [Mass ratio] 9.1 mg/mg Normal [facility] Comment on above: Performed By: #### C MP, MG ####[facility] Hssxkwggng36[address] [place] [address]Dr. Rubyyvan Malone XR CHEST 2 Von 11-16-2022 XR CHEST 2 V Normal [facility] AMMONIAon 11-15-2022 Ammonia (P) [Moles/Vol] 20 umol/L Normal 11-32 [facility] Comment on above: Performed By: #### A MM ####[facility] Tmcukjvbcq67[address] [place], [place] [address]Dr. Donna Faisal CBC AUTO DIFFon 11-15-2022 BASO # 0.0 103/ul Normal 0.0-0.1 [facility] Comment on above: Performed By: #### C BC ####[facility] Xwjhfmzyon14[address] [place], [place] [address]Dr. Rubyyvan Malone Basophils/100 WBC (Bld) 0.5 % Normal 0.2-2.0 [facility] Comment on above: Performed By: #### C BC ####[facility] Xkrhotzhcq[address] [place], [place] [address]Dr. Donna Faisal EO # 0.1 103/ul Normal 0.0-0.7 [facility] Comment on above: Performed By: #### C BC ####[facility] Jbekjenutx0[address] [place], [place] [address]Dr. Rubyyvan Malone Eosinophils/100 WBC (Bld) 1.4 % Normal 0.9-7.0 [facility] Comment on above: Performed By: #### C BC ####[facility] Psdnyvvfjv[address] [place], [place] [address]Dr. Donna Malone Erythrocyte distribution width (RBC) [Ratio] 14.6 % Normal 11.0-15.0 [facility] Comment on above: Performed By: #### C BC ####[facility] Fdathvginx65[address] [place] [address]Dr. Donna Malone Hematocrit (Bld) [Volume fraction] 36.8 % Critically low 42.0-54.0 [facility] Comment on above: Performed By: #### C BC ####[facility] Dmzxjhoado34[address] [place] [address]Dr. Donna Malone Hemoglobin (Bld) [Mass/Vol] 12.1 g/dL Critically low 14.0-18.0 [facility] Comment on above: Performed By: #### C BC ####[facility] Aquxyvhoqb24[address] [place], [place] [address]Dr. Donna Malone IG # 0.01 10e3/ul Normal 0.00-0.03 [facility] Comment on above: Performed By: #### C BC ####[facility] Melkulkwui[address] [place], [place] [address]Dr. Donna Malone IG % 0.2 % Normal 0.0-0.5 [facility] Comment on above: Performed By: #### C BC ####[facility] Vgllwibwyn[address] [place], [place] [address]Dr. Rubyyvan Malone LYMPH # 1.7 103/ul Normal 1.2-3.8 [facility] Comment on above: Performed By: #### C BC ####[facility] Giwsldnxyk[address] [place], [place] [address]Dr. Donna Malone Lymphocytes/100 WBC (Bld) 27.0 % Normal 20.5-60.0 [facility] Comment on above: Performed By: #### C BC ####[facility] Tylrzsvfnc[address] [place], [place] [address]Dr. Rubyyvan Malone MANUAL DIFF REQ NO Normal [facility] Comment on above: Performed By: #### C BC ####[facility] Royatuncom[address] [place], [place] [address]Dr. Rubyyvan Malone MCH (RBC) [Entitic mass] 29.5 pg Normal 25.9-34.0 [facility] Comment on above: Performed By: #### C BC ####[facility] B[address]fxzicw[address] [place] [id number]. Donna Malone MCHC (RBC) [Mass/Vol] 32.9 g/dL Normal 29.9-35.2 [facility] Comment on above: Performed By: #### C BC ####[facility] Awoesviesg1736 [place] [id number]. Donna Malone MCV (RBC) [Entitic vol] 89.8 fL Normal 80.0-94.0 [facility] Comment on above: Performed By: #### C BC ####[facility] Yuipscvurf7[address] [place] [address]Dr. Donna Malone MONO # 0.4 103/ul Normal 0.3-0.8 [facility] Comment on above: Performed By: #### C BC ####[facility] Yjvzppypfd[address] [place], [place] [address]Dr. Donna Malone Monocytes/100 WBC (Bld) 6.7 % Normal 1.7-12.0 [facility] Comment on above: Performed By: #### C BC ####[facility] Kdlinznwea[address] [place], [place] [id number]. Donna Malone NEUT # 4.0 103/ul Normal 1.4-6.5 [facility] Comment on above: Performed By: #### C BC ####[facility] Dexlsmjuqo[address] [place], [place] [address]Dr. Donna Malone Neutrophils/100 WBC (Bld) 64.2 % Normal 43.0-75.0 [facility] Comment on above: Performed By: #### C BC ####[facility] Dkzvlibfig9680 [place] [id number]. Donna Malone Platelet mean volume (Bld) [Entitic vol] 11.3 fL Normal 9.5-13.5 [facility] Comment on above: Performed By: #### C BC ####[facility] Ayzpjlqqag[address] [place], [place] [address]Dr. Donna Malone PLT 169 103/ul Normal 150-450 [facility] Comment on above: Performed By: #### C BC ####[facility] [address]huyt[address] [place] [address]Dr. Donna Malone RBC 4.10 106/ul Critically low 4.70-6.10 [facility] Comment on above: Performed By: #### C BC ####[facility] Fqcescowkc52[address] [place] [address]Dr. Donna Malone WBC 6.3 103/ul Normal 4.0-11.0 [facility] Comment on above: Performed By: #### C BC ####[facility] Wtqbcclpxh[address] [place], [place] [address]Dr. Donna Malone GLYCOHEMOGLOBIN A1Con 2022 ADA RECOMMENDATION SEE BELOW Normal [facility] Comment on above: Result Comment: ADA RECOMMENDED LIMIT 4.0 - 6.0 ADA THERAPEUTIC TARGET < 7.0 ACTION SUGGESTED > 7.0 Performed By: #### A 1C ####[facility] Scvqqelmxh[address] [place], [place] [address]Dr. Donna Malone Glucose [Mass/Vol] 128 mg/dL Normal [facility] Comment on above: Performed By: #### A 1C ####[facility] Amiwnzgfbu[address] [place], [place] [address]Dr. Donna Malone HbA1c (Bld) [Mass fraction] 6.1 % Normal 4.5-6.2 [facility] Comment on above: Performed By: #### A 1C ####[facility] Hrkjwuqviq[address] [place], [place] [address]Dr. Donna Malone MAGNESIUMon 11-15-2022 Magnesium [Mass/Vol] 1.6 mg/dL Critically low 1.8-2.4 [facility] Comment on above: Performed By: #### C MP, MG ####[facility] Otokmmjafy7[address] [place], [place] [address]Dr. Donna Malone POINT OF CARE GLUCOSEon Glucose [Mass/Vol] 165 mg/dL Critically high 74-[address] [facility] Comment on above: Performed By: #### P OCGLUC ####[facility] Cqyysxpncx[address] [place], [place] [address]Dr. Donna Malone Glucose [Mass/Vol] 155 mg/dL Critically high 74-106 [facility] Comment on above: Performed By: #### P OCGLUC ####[facility] Qpvrkxlkts3775 [place] [address]Dr. Donna Malone Glucose [Mass/Vol] 111 mg/dL Critically high 74-106 [facility] Comment on above: Performed By: #### P OCGLUC ####[facility] Yrnkdgzsak8021 [place] [address]Dr. Donna Malone PROF 14(COMP METB)on 023 Albumin [Mass/Vol] 2.9 g/dL Critically low 3.4-5.0 [facility] Comment on above: Performed By: #### C MP, MG ####[facility] Zsmzfqtijg5[address] [place], [place] [address]Dr. Donna Malone Albumin/Globulin [Mass ratio] 1.0 {ratio} Normal [facility] Comment on above: Performed By: #### C MP, MG ####[facility] Oqyfsilkao5[address] [place], [place] [address]Dr. Donna Malone ALP [Catalytic activity/Vol] 38 U/L Critically low 46-116 [facility] Comment on above: Performed By: #### C MP, MG ####[facility] Xxqmmnxhvv[address] [place], [place] [address]Dr. Donna Malone ALT [Catalytic activity/Vol] 13 U/L Critically low 16-63 [facility] Comment on above: Performed By: #### C MP, MG ####[facility] Pjcoppuyah79[address] [place] [address]Dr. Donna Malone Anion gap [Moles/Vol] 11.8 mmol/L Normal [facility] Comment on above: Performed By: #### C MP, MG ####[facility] Mmupetzyni[address] [place], [place] [address]Dr. Donna Malone AST [Catalytic activity/Vol] 15 U/L Normal 15-37 [facility] Comment on above: Performed By: #### C MP, MG ####[facility] Qlpoyuzyzk94[address] [place], [place] [address]Dr. Donna Malone Bilirubin [Mass/Vol] 0.4 mg/dL Normal 0.2-1.0 [facility] Comment on above: Performed By: #### C MP, MG ####[facility] Credefcofh[address] [place] [address]Dr. Donna Malone Calcium [Mass/Vol] 8.2 mg/dL Critically low 8.5-10.1 [facility] Comment on above: Performed By: #### C MP, MG ####[facility] Ifkzhzcfpf3[address] [place], [place] [address]Dr. Donna Malone Chloride [Moles/Vol] 111 mmol/L Critically high 98-107 [facility] Comment on above: Performed By: #### C MP, MG ####[facility] Qoleyysitx4912[address] [place], [place] [address]Dr. Donna Malone CO2 [Moles/Vol] 27.9 mmol/L Normal 21.0-32.0 [facility] Comment on above: Performed By: #### C MP, MG ####[facility] Drecphkslm67[address] [place], [place] [address]Dr. Donna Malone Creatinine [Mass/Vol] 0.99 mg/dL Normal 0.70-1.30 [facility] Comment on above: Performed By: #### C MP, MG ####[facility] Wiqlugfhao[address] [place], [place] [address]Dr. Donna Malone EGFR-AF RWANDAN >60 Normal >=60 [facility] Comment on above: Performed By: #### C MP, MG ####[facility] Whhgzjozdb[address] [place], [place] [address]Dr. Donna Faisal EGFR-NON AF RWANDAN >60 Normal >=60 [facility] Comment on above: Performed By: #### C MP, MG ####[facility] Tzwvbflzvg[address] [place], [place] [address]Dr. Donna Malone Globulin (S) [Mass/Vol] 2.9 g/dL Normal [facility] Comment on above: Performed By: #### C MP, MG ####[facility] Jrxsphvkwv[address] [place], [place] [address]Dr. Donna Malone Glucose [Mass/Vol] 88 mg/dL Normal 74-106 [facility] Comment on above: Performed By: #### C MP, MG ####[facility] Dhftzfihid4[address] [place] [address]Dr. Donna Malone Potassium [Moles/Vol] 3.7 mmol/L Normal 3.5-5.1 [facility] Comment on above: Performed By: #### C MP, MG ####[facility] Gqtnqtbsmb1338 [place] [address]Dr. Donna Malone Protein [Mass/Vol] 5.8 g/dL Critically low 6.4-8.2 Th [facility] Comment on above: Performed By: #### C MP, MG ####[facility] Dgrkeiufrb9080 [place] [address]Dr. Donna Malone Sodium [Moles/Vol] 147 mmol/L Critically high 136-145 [facility] Comment on above: Performed By: #### C MP, MG ####[facility] Hbtyvumxzm9850[address] [place], [place] [address]Dr. Donna Malone Urea nitrogen [Mass/Vol] 12.0 mg/dL Normal 7.0-18.0 [facility] Comment on above: Performed By: #### C MP, MG ####[facility] Fhwbovheno5[address] [place] [address]Dr. Donna Malone Urea nitrogen/Creatinine [Mass ratio] 12.1 mg/mg Normal [facility] Comment on above: Performed By: #### C MP, MG ####[facility] Fqubtjgjjs[address] [place] [address]Dr. Donna Malone ACETONE SERUMon 11-14-2022 ACETONE Negative Normal NEGATIVE [facility] Comment on above: Performed By: #### A CETON ####[facility] Vpzwesxlnj74[address] [place] [address]Dr. Donna Malone AMMONIAon 11-14-2022 Ammonia (P) [Moles/Vol] 17 umol/L Normal 11-32 [facility] Comment on above: Performed By: #### A MM ####[facility] Boztubobdq06[address] [place] [address]Dr. Donna Malone BLOOD GASES BTYon 11-14-2022 02 MODE ROOM AIR Normal [facility] Comment on above: Performed By: #### A BG ####[facility] Tjpuyiwhji14[address] [place] [address]Dr. Donna Malone ALLENS TEST Positive [facility] Comment on above: Performed By: #### A BG ####[facility] Eqcrsbmsnv4628 [place] [address]Dr. Donna Malone Base excess Calc (Bld) [Moles/Vol] 1.1 mmol/L Normal -2.0-2.0 [facility] Comment on above: Performed By: #### A BG ####[facility] Rqsarteepp64[address] [place] [address]Dr. Donna Malone BIPAP PRESSURE [facility] Comment on above: Performed By: #### A BG ####[facility] Pbbgqefjmd[address] [place], [place] [address]Dr. Donna Malone CPAP [facility] Comment on above: Performed By: #### A BG ####[facility] Cbblhtlqdb32[address] [place], [place] [address]Dr. Donna Malone FIO2 [facility] Comment on above: Performed By: #### A BG ####[facility] Ikiyzxwaah[address] [place], [place] [address]Dr. Donna Malone HCO3 (Bld) [Moles/Vol] 26.0 mmol/L Normal 22.0-26.0 [facility] Comment on above: Performed By: #### A BG ####[facility] Uojmgjfzgi17[address] [place] [address]Dr. Donna Malone LPM [facility] Comment on above: Performed By: #### A BG ####[facility] Wbccirdpyi[address] [place], [place] [address]Dr. Donna Malone MINUTE VOLUME Normal [facility] Comment on above: Performed By: #### A BG ####[facility] Cgwqiudylj[address] [place], [place] [address]Dr. Donna Malone Oxygen (Bld) [Partial pressure] 62.0 mm[Hg] Critically low 80.0-100.0 [facility] Comment on above: Performed By: #### A BG ####[facility] Wemrstdyal50[address] [place], [place] [address]Dr. Donna Malone Oxygen saturation in Blood 91.9 % Critically low 95.0-100.0 [facility] Comment on above: Performed By: #### A BG ####[facility] Axpjaafjwn[address] [place], [place] [address]Dr. Donna Malone PCO2 42.8 mmHg Normal 35.0-45.0 [facility] Comment on above: Performed By: #### A BG ####[facility] Ugemghqloi95[address] [place], [place] [address]Dr. Donna Malone PEEP [facility] Comment on above: Performed By: #### A BG ####[facility] Yrsbxoapoh7[address] [place], [place] [address]Dr. Donna Malone pH (Bld) 7.392 [pH] Normal 7.350-7.45 0 [facility] Comment on above: Performed By: #### A BG ####[facility] Qseeeotfbx3[address] [place], [place] [address]Dr. Donna Malone PIP [facility] Comment on above: Performed By: #### A BG ####[facility] Yxngkvjfgz6[address] [place], [place] [address]Dr. Donna Malone PS [facility] Comment on above: Performed By: #### A BG ####[facility] Sdjiwohtar58[address] [place], [place] [address]Dr. Donna Malone PUNCTURE SITE LR [facility] Comment on above: Performed By: #### A BG ####[facility] Aqzcbnficj01[address] [place], [place] [address]Dr. Donna Malone RATE [facility] Comment on above: Performed By: #### A BG ####[facility] Bkzeuxdeqj[address] [place], [place] [address]Dr. Donna Malone VENT MODE [facility] Comment on above: Performed By: #### A BG ####[facility] Zibnjfybtz15[address] [place] [address]Dr. Donna Malone VT Normal [facility] Comment on above: Performed By: #### A BG ####[facility] Rthumzdovj99[address] [place], [place] [address]Dr. Donna Faisal BNPon 11-14-2022 Natriuretic peptide B (Bld) [Mass/Vol] 148.0 pg/mL Normal <=900.0 [facility] Comment on above: Performed By: #### B CERTIFIED SURGICAL FIRST ASSISTANT, CMP, HSTROPN ####[facility] Rxdxbqadsa24[address] [place], [place] [address]Dr. Donna Malone CBC AUTO DIFFon 11-14-2022 BASO # 0.0 103/ul Normal 0.0-0.1 [facility] Comment on above: Performed By: #### C BC ####[facility] Vhsjtqrmcw14[address] [place], [place] [address]Dr. Donna Malone Basophils/100 WBC (Bld) 0.5 % Normal 0.2-2.0 [facility] Comment on above: Performed By: #### C BC ####[facility] Wsdnoewesg[address] [place], [place] [address]Dr. Donna Malone EO # 0.1 103/ul Normal 0.0-0.7 [facility] Comment on above: Performed By: #### C BC ####[facility] Qsqrgwskqu[address] [place], [place] [address]Dr. Donna Malone Eosinophils/100 WBC (Bld) 0.6 % Critically low 0.9-7.0 [facility] Comment on above: Performed By: #### C BC ####[facility] Oldqtshfzh4[address] [place], [place] [address]Dr. Donna Malone Erythrocyte distribution width (RBC) [Ratio] 14.8 % Normal 11.0-15.0 [facility] Comment on above: Performed By: #### C BC ####[facility] Hccknzwdqq[address] [place], [place] [address]Dr. Donna Malone Hematocrit (Bld) [Volume fraction] 41.9 % Critically low 42.0-54.0 [facility] Comment on above: Performed By: #### C BC ####[facility] Xnmkyfxlhd8100 [place] [address]DrElizabeth Malone Hemoglobin (Bld) [Mass/Vol] 13.6 g/dL Critically low 14.0-18.0 [facility] Comment on above: Performed By: #### C BC ####[facility] Zyfkmioryy8373 [place] [address]DrElizabeth Malone IG # 0.01 10e3/ul Normal 0.00-0.03 [facility] Comment on above: Performed By: #### C BC ####[facility] Wjlpqfovyw[address] [place], [place] [address]DrElizabeth Malone IG % 0.1 % Normal 0.0-0.5 [facility] Comment on above: Performed By: #### C BC ####[facility] Hyzvxizhbx44[address] [place], [place] [address]DrElizabeth Malone LYMPH # 1.7 103/ul Normal 1.2-3.8 [facility] Comment on above: Performed By: #### C BC ####[facility] Aeiwpykwvg65[address] [place], [place] [address]DrElizabeth Malone Lymphocytes/100 WBC (Bld) 21.2 % Normal 20.5-60.0 [facility] Comment on above: Performed By: #### C BC ####[facility] Ppvoqlabtx[address] [place], [place] [address]DrElizabeth Malone MANUAL DIFF REQ NO Normal [facility] Comment on above: Performed By: #### C BC ####[facility] Iqnmdxtobs1242 [place] [address]DrElizabeth Malone MCH (RBC) [Entitic mass] 29.2 pg Normal 25.9-34.0 [facility] Comment on above: Performed By: #### C BC ####[facility] Uumtmcyyxb1863 [place] [address]DrElizabeth Malone MCHC (RBC) [Mass/Vol] 32.5 g/dL Normal 29.9-35.2 [facility] Comment on above: Performed By: #### C BC ####[facility] Cdlbjnfykm9753 [place] [address]Dr. Donna Malone MCV (RBC) [Entitic vol] 90.1 fL Normal 80.0-94.0 [facility] Comment on above: Performed By: #### C BC ####[facility] Qhwhdsdpga7124 [place] [address]Dr. Donna Faisal MONO # 0.4 103/ul Normal 0.3-0.8 [facility] Comment on above: Performed By: #### C BC ####[facility] Lfdyakjorn8[address] [place] [address]Dr. Rubyyvan Malone Monocytes/100 WBC (Bld) 5.5 % Normal 1.7-12.0 [facility] Comment on above: Performed By: #### C BC ####[facility] Pfpszijbti[address] [place], [place] [address]Dr. Donna Malone NEUT # 5.7 103/ul Normal 1.4-6.5 [facility] Comment on above: Performed By: #### C BC ####[facility] Uvaxwthiyn[address] [place], [place] [address]Dr. Rubyyvan Malone Neutrophils/100 WBC (Bld) 72.1 % Normal 43.0-75.0 [facility] Comment on above: Performed By: #### C BC ####[facility] Ivbtlfifrl[address] [place], [place] [address]Dr. Donna Malone Platelet mean volume (Bld) [Entitic vol] 11.5 fL Normal 9.5-13.5 [facility] Comment on above: Performed By: #### C BC ####[facility] Amvvmbdzyo16[address] [place], [place] [address]Dr. Donna Malone PLT 193 103/ul Normal 150-450 [facility] Comment on above: Performed By: #### C BC ####[facility] Toijqdoupl76[address] [place] [address]Dr. Donna Malone RBC 4.65 106/ul Critically low 4.70-6.10 [facility] Comment on above: Performed By: #### C BC ####[facility] Vqaxiytdhz7779 [place] [address]Dr. Donna Malone WBC 7.9 103/ul Normal 4.0-11.0 [facility] Comment on above: Performed By: #### C BC ####[facility] Uczdaxjqjw8[address] [place] [address]Dr. Donna Malone CT HEAD WO CONon 11-14-2022 CT HEAD WO CON Normal [facility] CULTURE BLOODon 11-14-2022 Microscopic examination of blood, culture Culture Observations: NO GROWTH AT 5 DAYS. Normal [facility] Comment on above: Performed By: #### B LDCX2 ####[facility] Kmnucgxjrr01[address] [place] [address]Dr. Donna Malone Microscopic examination of blood, culture Culture Observations: NO GROWTH AT 5 DAYS. Normal [facility] Comment on above: Performed By: #### B LDCX1 ####[facility] Fezoruxrht99[address] [place] [id number]. Donna Malone Covid-19 PCR (CVDTB)on SARS-CoV-2 (COVID-19) RNA JOSÉ MIGUEL+probe Ql (Unsp spec) Not detected Normal NOT DETECTED [facility] Comment on above: Result Comment: When [...] for this test is supported by the [place] of [employer] and Human Service's declaration that [...] be used). Performed By: #### C VDTBH ####[facility] Ripqbuekoj2[address] [place] [address]Dr. Donna Malone DRUG SCREEN RAPID (URINE)on 11-14-2022 AMP Negative Normal NEGATIVE [facility] Comment on above: Performed By: #### D SHARONA, ERUR ####[facility] Ivownwuxfr[address] [place] [address]Dr. Donna Malone BAR Negative Normal NEGATIVE [facility] Comment on above: Performed By: #### D RUGRPD, ERUR ####[facility] Bezxtqckqa78[address] [place] [address]Dr. Donna Malone BUP Negative Normal NEGATIVE [facility] Comment on above: Performed By: #### D SHARONA, ERUR ####[facility] Gsjdbxsuhl1754 [place] [address]Dr. Donna Malone BZO Negative Normal NEGATIVE [facility] Comment on above: Performed By: #### D KAMRYND, ERUR ####[facility] Eefanctzqf3065 [place] [address]Dr. Donna Malone EVONNE Negative Normal NEGATIVE [facility] Comment on above: Performed By: #### D SHARONA, ERUR ####[facility] Ryfoitmqyt5082 [place] [address]Dr. Donna Malone CUT-OFFS SEE BELOW Normal [facility] Comment on above: Result Comment: AMP (Amphetamine): 500ng/mL, BAR (Barbituates): 200 ng/mL, BZO (Benzodiazepines): 150 ng/mL, BUP (Buprenorphine): 10 ng/mL, EVONNE (Cocaine): 150 ng/mL, mAMP (Methamphetamine): 500 ng/mL, MTD (Methadone): 200 ng/mL, OPI (Opiates): 100 ng/mL, OXY (Oxycodone): 100 ng/mL, PCP (Phencyclidine): 25 ng/mL, PPX (Propoxyphene): 300 ng/mL, THC (Cannabinoids): 50 ng/mL, TCA (Trycyclic Antidepressants): 300 ng/mL Performed By: #### D RUGRPD, ERUR ####[facility] Z[address]udxghj36[address] [place] [id number]. Donna Malone DRUG CUT HEADER DRUG CLASS TEST SYST EM CUT-OFF CONCENTRATIONS ARE FOLLOWS: Normal [facility] Comment on above: Performed By: #### D SHARONA, ERUR ####[facility] Tdjvwsjpbm4426 [place] [id number]. Donna Malone mAMP Negative Normal NEGATIVE [facility] Comment on above: Performed By: #### D SHARONA, ERUR ####[facility] Jmodtzkunm7309 [place] [id number]. Donna Malone MTD Negative Normal NEGATIVE [facility] Comment on above: Performed By: #### D SHARONA, ERUR ####[facility] Icvxddcbpy2043 [place] [id number]. Donna Malone OPI Negative Normal NEGATIVE [facility] Comment on above: Performed By: #### D SHARONA, ERUR ####[facility] Egwblplaeh76[address] [place] [address]Dr. Yilan Malone OXY Negative Normal NEGATIVE [facility] Comment on above: Performed By: #### Calvin TABOR, ERUR ####[facility] Kiwysuazqm10[address] [place] [id number]. Donna Malone PCP Negative Normal NEGATIVE [facility] Comment on above: Performed By: #### Calvin TABOR, ERUR ####[facility] Dzhparccue5685 [place] [address]Dr. Rubylan Malone PPX Negative Normal NEGATIVE [facility] Comment on above: Performed By: #### D SHARONA, ERUR ####[facility] Ufkmdoasfk5199 [place] [id number]. Donna Malone TCA Positive Abnormal NEGATIVE [facility] Comment on above: Performed By: #### D SHARONA, ERUR ####[facility] Kpihqmbavb3440 [place] [id number]. Donna Malone THC Negative Normal NEGATIVE [facility] Comment on above: Performed By: #### Calvin TABOR, ERUR ####[facility] Egqbptzzpe0554 [place] [address]Dr. Donna Malone ER URINE PROFILEon 3 Bilirubin Ql (U) MODERATE Abnormal NEGATIVE [facility] Comment on above: Performed By: #### Calvin TABOR, ERUR ####[facility] Dggpkmadia3533 [place] [address]Dr. Donna Malone Clarity (U) CLEAR Normal CLEAR [facility] Comment on above: Performed By: #### Calvin TABOR ERUR ####[facility] [address]lrlpbkjwa[address] [place], [place] [address]Dr. Donna Malone Color (U) DK. YELLOW Normal YELLOW [facility] Comment on above: Performed By: #### Calvin TABOR ERUR ####[facility] Btqapolsgx[address] [place], [place] [address]Dr. Donna JARRELLAHD A micrscopic examina tion will be performed if indicated. Normal [facility] Comment on above: Performed By: #### Calvin TABOR ERUR ####[facility] Kxdjsrkgmc[address] [place], [place] [address]Dr. Donna Malone Glucose Ql (U) Negative Normal NEGATIVE [facility] [facility] Comment on above: Performed By: #### WESLY LAUR ####[facility] [address]nlqdqeb[address] [place], [place] [address]Dr. Donna Malone Hemoglobin Ql (U) Negative Normal NEGATIVE [facility] Comment on above: Performed By: #### Calvin TABOR ERUR ####[facility] Zbzqllrzyr[address] [place], [place] [address]Dr. Donna Malone Ketones Ql (U) 40 mg/dl Abnormal NEGATIVE [facility] Comment on above: Performed By: #### Calvin TABOR ERUR ####[facility] Unnfjronun[address] [place], [place] [address]Dr. Donna Malone LEUKOCYTES Negative Normal NEGATIVE [facility] Comment on above: Performed By: #### WESLY LAUR ####[facility] Lblrefcupy[address] [place], [place] [address]Dr. Donna Malone Nitrite Ql (U) Negative Normal NEGATIVE [facility] Comment on above: Performed By: #### D SHARONA, ERUR ####[facility] [address]ufpaus[address] [place] [address]Dr. Donna Malone pH (U) 6.0 [pH] Normal 5-9 [facility] Comment on above: Performed By: #### D SHARONA, ERUR ####[facility] Oeqyvrbqfk[address] [place] [address]Dr. Donna Malone SPEC GRAVITY 1.030 Abnormal 1.005-<=1. 025 [facility] Comment on above: Performed By: #### Calvin TABOR, ERUR ####[facility] Yfswhjdymw14[address] [place] [address]Dr. Donna Malone UA PROTEIN TRACE Normal NEGATIVE/ TRACE [facility] Comment on above: Performed By: #### Calvin TABOR, ERUR ####[facility] [address]lothzdsjr[address] [place], [place] [address]Dr. Donna Malone UR MICRO IND NOT INDICATED Normal [facility] Comment on above: Performed By: #### Calvin TABOR, ERUR ####[facility] Ebiaeeibzd[address] [place], [place] [address]Dr. Donna Malone Urobilinogen Qn (U) 1.0 {Jermain'U}/dL Normal 0.2 - 1. 0 [facility] Comment on above: Performed By: #### Calvin TABOR, ERUR ####[facility] Haoywiasuc[address] [place], [place] [address]Dr. Donna Malone LACTATE/LACTIC ACIDon 2022 Lactate [Moles/Vol] 1.6 mmol/L Normal 0.4-1.9 [facility] Comment on above: Performed By: #### L ACT ####[facility] Iosspkpyln[address] [place], [place] [address]Dr. Donna Malone PROF 14(COMP METB)on 023 Albumin [Mass/Vol] 3.4 g/dL Normal 3.4-5.0 [facility] Comment on above: Performed By: #### B CERTIFIED SURGICAL FIRST ASSISTANT, CMP, HSTROPN ####[facility] X[address]zxngim[address] [place] [address]Dr. Rubyyvan Faisal Albumin/Globulin [Mass ratio] 1.0 {ratio} Normal [facility] Comment on above: Performed By: #### B CERTIFIED SURGICAL FIRST ASSISTANT, CMP, HSTROPN ####[facility] Ahqyfpvbyh[address] [place] [address]Dr. Donna Malone ALP [Catalytic activity/Vol] 48 U/L Normal 46-116 [facility] Comment on above: Performed By: #### B CERTIFIED SURGICAL FIRST ASSISTANT, CMP, HSTROPN ####[facility] Suropyiufv8[address] [place] [address]Dr. Donna Malone ALT [Catalytic activity/Vol] 13 U/L Critically low 16-63 [facility] Comment on above: Performed By: #### B CERTIFIED SURGICAL FIRST ASSISTANT, CMP, HSTROPN ####[facility] G[address]ocneypaw[address] [place] [address]Dr. Donna Malone Anion gap [Moles/Vol] 13.2 mmol/L Normal [facility] Comment on above: Performed By: #### B CERTIFIED SURGICAL FIRST ASSISTANT, CMP, HSTROPN ####[facility] Tjpsdwgick40[address] [place] [address]Dr. Donna Malone AST [Catalytic activity/Vol] 13 U/L Critically low 15-37 [facility] Comment on above: Performed By: #### B CERTIFIED SURGICAL FIRST ASSISTANT, CMP, HSTROPN ####[facility] Ammsfwawhq[address] [place] [address]Dr. Donna Malone Bilirubin [Mass/Vol] 0.4 mg/dL Normal 0.2-1.0 [facility] Comment on above: Performed By: #### B CERTIFIED SURGICAL FIRST ASSISTANT, CMP, HSTROPN ####[facility] Kxvycnnjgt7547 [place] [address]Dr. Donna Malone Calcium [Mass/Vol] 9.2 mg/dL Normal 8.5-10.1 [facility] Comment on above: Performed By: #### B CERTIFIED SURGICAL FIRST ASSISTANT, CMP, HSTROPN ####[facility] Wejwbenkfy34[address] [place] [address]Dr. Donna Malone Chloride [Moles/Vol] 108 mmol/L Critically high 98-107 [facility] Comment on above: Performed By: #### B CERTIFIED SURGICAL FIRST ASSISTANT, CMP, HSTROPN ####[facility] Udkxmiesmw5[address] [place] [address]Dr. Donna Malone CO2 [Moles/Vol] 27.0 mmol/L Normal 21.0-32.0 [facility] Comment on above: Performed By: #### B CERTIFIED SURGICAL FIRST ASSISTANT, CMP, HSTROPN ####[facility] Njbzxqtwbq1947 [place] [address]Dr. Donna Malone Creatinine [Mass/Vol] 1.14 mg/dL Normal 0.70-1.30 [facility] Comment on above: Performed By: #### B CERTIFIED SURGICAL FIRST ASSISTANT, CMP, HSTROPN ####[facility] Zefzyvmyby[address] [place], [place] [address]Dr. Donna Malone EGFR-AF RWANDAN >60 Normal >=60 [facility] Comment on above: Performed By: #### B CERTIFIED SURGICAL FIRST ASSISTANT, CMP, HSTROPN ####[facility] Oaqjvpdzbx[address] [place], [place] [address]Dr. Donna Malone EGFR-NON AF RWANDAN >60 Normal >=60 [facility] Comment on above: Performed By: #### B CERTIFIED SURGICAL FIRST ASSISTANT, CMP, HSTROPN ####[facility] Nhpgpzugbc101[address] [place] [address]Dr. Donna Malone Globulin (S) [Mass/Vol] 3.5 g/dL Normal [facility] Comment on above: Performed By: #### B CERTIFIED SURGICAL FIRST ASSISTANT, CMP, HSTROPN ####[facility] Zffueymejq2694 [place] [address]Dr. Donna Malone Glucose [Mass/Vol] 126 mg/dL Critically high 74-[address] [facility] Comment on above: Performed By: #### B CERTIFIED SURGICAL FIRST ASSISTANT, CMP, HSTROPN ####[facility] Yfqrtcecwg2499 [place] [address]Dr. Donna Malone Potassium [Moles/Vol] 4.2 mmol/L Normal 3.5-5.1 [facility] Comment on above: Performed By: #### B CERTIFIED SURGICAL FIRST ASSISTANT, CMP, HSTROPN ####[facility] Zwzwaspnef9978 [place] [address]Dr. Donna Malone Protein [Mass/Vol] 6.9 g/dL Normal 6.4-8.2 [facility] Comment on above: Performed By: #### B CERTIFIED SURGICAL FIRST ASSISTANT, CMP, HSTROPN ####[facility] Aydzzfddah8369 [place] [address]Dr. Donna Malone Sodium [Moles/Vol] 144 mmol/L Normal 136-145 [facility] Comment on above: Performed By: #### B CERTIFIED SURGICAL FIRST ASSISTANT, CMP, HSTROPN ####[facility] Tljthcktyw0593 [place] [address]Dr. Donna Malone Urea nitrogen [Mass/Vol] 17.0 mg/dL Normal 7.0-18.0 [facility] Comment on above: Performed By: #### B CERTIFIED SURGICAL FIRST ASSISTANT, CMP, HSTROPN ####[facility] Twmtvzufxv9586 [place] [address]Dr. Donna Malone Urea nitrogen/Creatinine [Mass ratio] 14.9 mg/mg Normal [facility] Comment on above: Performed By: #### B CERTIFIED SURGICAL FIRST ASSISTANT, CMP, HSTROPN ####[facility] Bpvjjauayv29[address] [place] [address]Dr. Donna Malone TROPONIN, HIGH SENSITIVITYon 11-14-2022 HSTROP 11.2 pg/mL Normal 4.0-76.1 [facility] Comment on above: Result Comment: CUT- OFF POINTS HAVE BEEN ESTABLISHED BASED ON THE FOURTH UNIVERSAL DEFINITIONS OF MYOCARDIALINFARCTION. THE UPPER REFERENCE LIMIT (URL) OF TROPONIN, DEFINED THE 99TH PERCENTILE OFcTnI DISTRIBUTION IN A REFERENCE POPULATION, HAS BEEN CONFIRMED THE DECISION THRESHOLDFOR WA DIAGNOSIS. Performed By: #### B CERTIFIED SURGICAL FIRST ASSISTANT, CMP, HSTROPN ####[facility] Yxczrfkvqc6766 [place] [address]Dr. Donna Malone XR CHEST 1 Von 11-14-2022 XR CHEST 1 V Normal [facility] XR lumbar spine AP/LAT/FLX/E XTon 11-01-2022 XR lumbar spine AP/LAT/FLX/EXT [facility] [place] [address] [place] [address] XRay Report Signed Patient: Taylor Mcclellan SR MR#: [id number] : 1955 Acct:[id number] Age/Sex: 67 / M ADM Date: 11/01/22 Loc: XD Room: Type: [facility] Attending Dr: Benson Lane MD Copies [...] Mj Rodriguez M.D.11/01/2022 3:07 PM Dictation Location: [place] [address] Transcribed By: [facility] 11/01/22 1507 Dictated By: Mj Rodriguez II, MD 11/01/22 1503 Signed By: 11/01/22 1507 Normal [facility] ER URINE PROFILEon 3 Bilirubin Ql (U) Negative Normal NEGATIVE [facility] Comment on above: Performed By: #### E RUR ####[facility] Hclhgggevo44[address] [place] [address]Dr. Donna Malone Clarity (U) CLEAR Normal CLEAR [facility] Comment on above: Performed By: #### E RUR ####[facility] Clywpovvfc[address] [place], [place] [address]Dr. Donna Malone Color (U) YELLOW Normal YELLOW [facility] Comment on above: Performed By: #### E RUR ####[facility] Teoxogkwgy[address] [place], [place] [address]Dr. Donna Malone ERUAHD A micrscopic examina tion will be performed if indicated. Normal [facility] Comment on above: Performed By: #### E RUR ####[facility] Kefyknlehj[address] [place], [place] [address]Dr. Donna Malone Glucose Ql (U) 250 mg/dl Abnormal NEGATIVE [facility] Comment on above: Performed By: #### E RUR ####[facility] Paldktwdob[address] [place], [place] [address]Dr. Donna Malone Hemoglobin Ql (U) TRACE-INTACT Abnormal NEGATIVE [facility] Comment on above: Performed By: #### E RUR ####[facility] Pwosclpyot19[address] [place], [place] [address]Dr. Donna Malone Ketones Ql (U) Negative Normal NEGATIVE [facility] Comment on above: Performed By: #### E RUR ####[facility] Dkevjowpcr[address] [place], [place] [address]Dr. Donna Malone LEUKOCYTES Negative Normal NEGATIVE [facility] Comment on above: Performed By: #### E RUR ####[facility] Xtxxavhsqu64[address] [place], [place] [address]Dr. Donna Malone Nitrite Ql (U) Negative Normal NEGATIVE [facility] Comment on above: Performed By: #### E RUR ####[facility] Awfrhfshib7[address] [place], [place] [address]Dr. Donna Malone pH (U) 5.5 [pH] Normal 5-9 [facility] Comment on above: Performed By: #### E RUR ####[facility] Qdycficxqa25[address] [place], [place] [address]Dr. Donna Malone SPEC GRAVITY 1.025 Normal 1.005-<=1. 025 [facility] Comment on above: Performed By: #### E RUR ####[facility] Bdcdakvzmm[address] [place], [place] [address]Dr. Donna Malone UA PROTEIN Negative Normal NEGATIVE/ TRACE [facility] Comment on above: Performed By: #### E RUR ####[facility] Krpenlcbsg[address] [place], [place] [address]Dr. Donna Malone UR MICRO IND NOT INDICATED Normal [facility] Comment on above: Performed By: #### E RUR ####[facility] Vdgxlrwtyq2064[address] [place], [place] [address]Dr. Dnona Malone Urobilinogen Qn (U) 0.2 {Jermain'U}/dL Normal 0.2 - 1. 0 [facility] Comment on above: Performed By: #### E RUR ####[facility] Jxtubwqxaq[address] [place], [place] [address]Dr. Donna Malone CBC AUTO DIFFon 10-26-2022 BASO # 0.0 103/ul Normal 0.0-0.1 [facility] Comment on above: Performed By: #### C BC ####[facility] Suibkpmpqb[address] [place], [place] [address]Dr. Donna Faisal Basophils/100 WBC (Bld) 0.4 % Normal 0.2-2.0 [facility] Comment on above: Performed By: #### C BC ####[facility] Qmjrxyjxob3[address] [place], [place] [address]Dr. Donna Malone EO # 0.0 103/ul Normal 0.0-0.7 [facility] Comment on above: Performed By: #### C BC ####[facility] Blsvykelxc[address] [place], [place] [address]Dr. Donna Faisal Eosinophils/100 WBC (Bld) 0.0 % Critically low 0.9-7.0 [facility] Comment on above: Performed By: #### C BC ####[facility] Gafvawwifd48[address] [place], [place] [address]Dr. Donna Faisal Erythrocyte distribution width (RBC) [Ratio] 14.5 % Normal 11.0-15.0 [facility] Comment on above: Performed By: #### C BC ####[facility] Wpowudlxtj5[address] [place] [address]Dr. Donna Malone Hematocrit (Bld) [Volume fraction] 41.2 % Critically low 42.0-54.0 [facility] Comment on above: Performed By: #### C BC ####[facility] Ywjddgjfcn[address] [place], [place] [address]Dr. Rubyyvan Malone Hemoglobin (Bld) [Mass/Vol] 13.7 g/dL Critically low 14.0-18.0 [facility] Comment on above: Performed By: #### C BC ####[facility] Owcinpopkv9[address] [place], [place] [address]Dr. Donna Malone IG # 0.02 10e3/ul Normal 0.00-0.03 [facility] Comment on above: Performed By: #### C BC ####[facility] Xfbdytbjmq8[address] [place], [place] [address]Dr. Rubyyvan Malone IG % 0.2 % Normal 0.0-0.5 [facility] Comment on above: Performed By: #### C BC ####[facility] Kervtohjkl43[address] [place], [place] [address]Dr. Donna Malone LYMPH # 1.2 103/ul Normal 1.2-3.8 [facility] Comment on above: Performed By: #### C BC ####[facility] Vopexqljuq23[address] [place], [place] [address]Dr. Donna Malone Lymphocytes/100 WBC (Bld) 14.4 % Critically low 20.5-60.0 [facility] Comment on above: Performed By: #### C BC ####[facility] Ucomgrolxj750[address] [place], [place] [address]Dr. Donna Malone MANUAL DIFF REQ NO Normal [facility] Comment on above: Performed By: #### C BC ####[facility] Ezkeitdutw09[address] [place], [place] [address]Dr. Donna Malone MCH (RBC) [Entitic mass] 29.4 pg Normal 25.9-34.0 [facility] Comment on above: Performed By: #### C BC ####[facility] Kbswtrjnrz[address] [place], [place] [address]Dr. Donna Malone MCHC (RBC) [Mass/Vol] 33.3 g/dL Normal 29.9-35.2 [facility] Comment on above: Performed By: #### C BC ####[facility] Cnemengywm[address] [place], [place] [address]Dr. Rubyyvan Malone MCV (RBC) [Entitic vol] 88.4 fL Normal 80.0-94.0 [facility] Comment on above: Performed By: #### C BC ####[facility] Grgesywrqt[address] [place], [place] [address]Dr. Donna Malone MONO # 0.2 103/ul Critically low 0.3-0.8 [facility] Comment on above: Performed By: #### C BC ####[facility] Plyzqukmfi66[address] [place], [place] [address]Dr. Donna Malone Monocytes/100 WBC (Bld) 2.5 % Normal 1.7-12.0 [facility] Comment on above: Performed By: #### C BC ####[facility] Cvfpnhlttz59[address] [place], [place] [address]Dr. Donna Malone NEUT # 6.9 103/ul Critically high 1.4-6.5 [facility] Comment on above: Performed By: #### C BC ####[facility] Mopfljdxwq13[address] [place], [place] [address]Dr. Donna Malone Neutrophils/100 WBC (Bld) 82.5 % Critically high 43.0-75.0 [facility] Comment on above: Performed By: #### C BC ####[facility] Cupdgakdlb[address] [place], [place] [address]Dr. Donna Malone Platelet mean volume (Bld) [Entitic vol] 11.3 fL Normal 9.5-13.5 [facility] Comment on above: Performed By: #### C BC ####[facility] Vfaqstuckw9350 [place] [address]Dr. Donna Malone PLT 241 103/ul Normal 150-450 [facility] Comment on above: Performed By: #### C BC ####[facility] Dcofymcnpc0973 [place] [address]Dr. Donna Malone RBC 4.66 106/ul Critically low 4.70-6.10 [facility] Comment on above: Performed By: #### C BC ####[facility] Miifqxzjew7878 [place] [address]Dr. Donna Malone WBC 8.4 103/ul Normal 4.0-11.0 [facility] Comment on above: Performed By: #### C BC ####[facility] Dcpcfuwbyk3660 [place] [address]Dr. Donna Malone CRPon 10-26-2022 CRP [Mass/Vol] mg/L Normal <=1.0 [facility] Comment on above: Performed By: #### C RP, BMP ####[facility] Kcyyuodlgj[address] [place], [place] [address]Dr. Donna Malone CT LSPINE WO CONon 3 CT LSPINE WO CON Normal [facility] PROF CHEM 8 (BAS METB)on Anion gap [Moles/Vol] 11.9 mmol/L Normal [facility] Comment on above: Performed By: #### C RP, BMP ####[facility] Jcxpbwfarq52[address] [place], [place] [address]Dr. Donna Malone Calcium [Mass/Vol] 9.1 mg/dL Normal 8.5-10.1 [facility] Comment on above: Performed By: #### C RP, BMP ####[facility] Obyvovvzek5[address] [place] [address]Dr. Donna Faisal Chloride [Moles/Vol] 104 mmol/L Normal 98-107 [facility] Comment on above: Performed By: #### C RP, BMP ####[facility] Yfqpcrvnao1380 [place] [address]Dr. Rubyyvan Malone CO2 [Moles/Vol] 26.3 mmol/L Normal 21.0-32.0 [facility] Comment on above: Performed By: #### C RP, BMP ####[facility] Dkawztbjlb5580 [place] [address]Dr. Donna Malone Creatinine [Mass/Vol] 0.99 mg/dL Normal 0.70-1.30 [facility] Comment on above: Performed By: #### C RP, BMP ####[facility] Qvwaqlbmml0147 [place] [address]Dr. Donna Malone EGFR-AF RWANDAN >60 Normal >=60 [facility] Comment on above: Performed By: #### C RP, BMP ####[facility] Izcungbxcl7834 [place] [address]Dr. Donna Malone EGFR-NON AF RWANDAN >60 Normal >=60 [facility] Comment on above: Performed By: #### C RP, BMP ####[facility] Mtszqmhbly6076 [place] [address]Dr. Donna Malone Glucose [Mass/Vol] 152 mg/dL Critically high 74-106 [facility] Comment on above: Performed By: #### C RP, BMP ####[facility] Dilteluqql7285 [place] [address]Dr. Donna Malone Potassium [Moles/Vol] 4.2 mmol/L Normal 3.5-5.1 [facility] Comment on above: Performed By: #### C RP, BMP ####[facility] Jgfcipqcxe1262 [place] [address]Dr. Donna Malone Sodium [Moles/Vol] 138 mmol/L Normal 136-145 [facility] Comment on above: Performed By: #### C RP, BMP ####[facility] Nbdtthzwmq2673 [place] [address]Dr. Donna Malone Urea nitrogen [Mass/Vol] 12.0 mg/dL Normal 7.0-18.0 [facility] Comment on above: Performed By: #### C RP, BMP ####[facility] Blenpgfjze3827 [place] [address]Dr. Donna Malone Urea nitrogen/Creatinine [Mass ratio] 12.1 mg/mg Normal [facility] Comment on above: Performed By: #### C RP, BMP ####[facility] Irxxxqaysp[address] [place], [place] [address]Dr. Donna Malone SED RATE WESTERGRENon 2022 SED RATE 57 mm/hr Critically high <=20 [facility] Comment on above: Performed By: #### S EDR ####[facility] Hfldoprjob[address] [place], [place] [address]Dr. Donna Malone CBC AUTO DIFFon 10-25-2022 BASO # 0.0 103/ul Normal 0.0-0.1 [facility] Comment on above: Performed By: #### C BC ####[facility] Dkiyrtvyld[address] [place], [place] [address]DrElizabeth Malone Basophils/100 WBC (Bld) 0.4 % Normal 0.2-2.0 [facility] Comment on above: Performed By: #### C BC ####[facility] Umagrbdzjn[address] [place], [place] [address]DrElizabeth Malone EO # 0.0 103/ul Normal 0.0-0.7 [facility] Comment on above: Performed By: #### C BC ####[facility] Zkvjyokbfa63[address] [place], [place] [address]DrElizabeth Malone Eosinophils/100 WBC (Bld) 0.0 % Critically low 0.9-7.0 [facility] Comment on above: Performed By: #### C BC ####[facility] Bktvtmnvhu9674[address] [place], [place] [address]DrElizabeth Malone Erythrocyte distribution width (RBC) [Ratio] 14.5 % Normal 11.0-15.0 [facility] Comment on above: Performed By: #### C BC ####[facility] Bdpjidyrmx49[address] [place], [place] [address]DrElizabeth Malone Hematocrit (Bld) [Volume fraction] 43.8 % Normal 42.0-54.0 [facility] Comment on above: Performed By: #### C BC ####[facility] Dupevpsbfc80[address] [place], [place] [address]Dr. Donna Malone Hemoglobin (Bld) [Mass/Vol] 14.2 g/dL Normal 14.0-18.0 [facility] Comment on above: Performed By: #### C BC ####[facility] Lwzpudwror5819 [place] [address]DrElizabeth Malone IG # 0.01 10e3/ul Normal 0.00-0.03 [facility] Comment on above: Performed By: #### C BC ####[facility] Jxfhycmqse[address] [place], [place] [address]Dr. Donna Malone IG % 0.1 % Normal 0.0-0.5 [facility] Comment on above: Performed By: #### C BC ####[facility] Msqtujslhl75[address] [place], [place] [address]DrElizabeth Malone LYMPH # 1.4 103/ul Normal 1.2-3.8 [facility] Comment on above: Performed By: #### C BC ####[facility] Miwrcwhfny7[address] [place], [place] [address]DrElizabeth Malone Lymphocytes/100 WBC (Bld) 17.1 % Critically low 20.5-60.0 [facility] Comment on above: Performed By: #### C BC ####[facility] Dntukrgtmb17[address] [place], [place] [address]DrElizabeth Malone MANUAL DIFF REQ NO Normal [facility] Comment on above: Performed By: #### C BC ####[facility] Zifrzureia20[address] [place], [place] [address]DrElizabeth Malone MCH (RBC) [Entitic mass] 29.1 pg Normal 25.9-34.0 [facility] Comment on above: Performed By: #### C BC ####[facility] Wiainhdehl[address] [place], [place] [address]DrElizabeth Malone MCHC (RBC) [Mass/Vol] 32.4 g/dL Normal 29.9-35.2 [facility] Comment on above: Performed By: #### C BC ####[facility] Scrmmuksnw8[address] [place], [place] [address]DrElizabeth Malone MCV (RBC) [Entitic vol] 89.8 fL Normal 80.0-94.0 [facility] Comment on above: Performed By: #### C BC ####[facility] Gxclstuddz9467 [place] [address] Donna Malone MONO # 0.3 103/ul Normal 0.3-0.8 [facility] Comment on above: Performed By: #### C BC ####[facility] Yvhotntvqc60[address] [place], [place] [address]DrElizabeth Donna Faisal Monocytes/100 WBC (Bld) 4.1 % Normal 1.7-12.0 [facility] Comment on above: Performed By: #### C BC ####[facility] Sfautcenrq17[address] [place], [place] [address]DrElizabeth Donna Malone NEUT # 6.3 103/ul Normal 1.4-6.5 [facility] Comment on above: Performed By: #### C BC ####[facility] Iklhhxlodi05[address] [place], [place] [address]DrElizabeth Donna Faisal Neutrophils/100 WBC (Bld) 78.3 % Critically high 43.0-75.0 [facility] Comment on above: Performed By: #### C BC ####[facility] Oqcmdpyfmf45[address] [place], [place] [address]DrElizabeth Donna Malone Platelet mean volume (Bld) [Entitic vol] 11.3 fL Normal 9.5-13.5 [facility] Comment on above: Performed By: #### C BC ####[facility] Dkissjcyzc3[address] [place], [place] [address]DrElizabeth Donna Faisal PLT 271 103/ul Normal 150-450 [facility] Comment on above: Performed By: #### C BC ####[facility] [address]ymyu[address] [place], [place] [id number] Beltranyvan Faisal RBC 4.88 106/ul Normal 4.70-6.10 [facility] Comment on above: Performed By: #### C BC ####[facility] Xoibqhqnex18[address] [place], [place] [address]DrElizabeth Malone WBC 8.0 103/ul Normal 4.0-11.0 [facility] Comment on above: Performed By: #### C BC ####[facility] Qaiinhkoaa8[address] [place], [place] [address]Dr. Rubyyvan Faisal ER URINE PROFILEon 3 Bilirubin Ql (U) Negative Normal NEGATIVE [facility] Comment on above: Performed By: #### E RUR ####[facility] Yplhmlbzya[address] [place], [place] [address]Dr. Donna Malone Clarity (U) CLEAR Normal CLEAR [facility] Comment on above: Performed By: #### E RUR ####[facility] Qkupbmcyqu[address] [place], [place] [address]Dr. Donna Malone Color (U) YELLOW Normal YELLOW [facility] Comment on above: Performed By: #### E RUR ####[facility] Inlldysfar[address] [place], [place] [address]Dr. Donna Malone ERUAHD A micrscopic examina tion will be performed if indicated. Normal [facility] Comment on above: Performed By: #### E RUR ####[facility] Swnlbgsvhr[address] [place], [place] [address]Dr. Donna Malone Glucose Ql (U) 100 mg/dl Abnormal NEGATIVE [facility] Comment on above: Performed By: #### E RUR ####[facility] Hqychvctjh[address] [place], [place] [address]Dr. Donna Malone Hemoglobin Ql (U) Negative Normal NEGATIVE [facility] Comment on above: Performed By: #### E RUR ####[facility] Tpgwsqvqzq[address] [place], [place] [address]Dr. Donna Malone Ketones Ql (U) TRACE Abnormal NEGATIVE [facility] Comment on above: Performed By: #### E RUR ####[facility] Fdznpftvbe[address] [place], [place] [address]Dr. Donna Malone LEUKOCYTES Negative Normal NEGATIVE [facility] Comment on above: Performed By: #### E RUR ####[facility] Zdjpukbwhr[address] [place], [place] [address]Dr. Donna Malone Nitrite Ql (U) Negative Normal NEGATIVE [facility] Comment on above: Performed By: #### E RUR ####[facility] [address]ft[address] [place] [address]Dr. Donna Malone pH (U) 6.0 [pH] Normal 5-9 [facility] Comment on above: Performed By: #### E RUR ####[facility] Uopovcpmhn[address] [place], [place] [address]Dr. Donna Malone SPEC GRAVITY >=1.030 Abnormal 1.005-<=1. 025 [facility] Comment on above: Performed By: #### E RUR ####[facility] Lcstxqnqtz3[address] [place], [place] [address]Dr. Donna Malone UA PROTEIN Negative Normal NEGATIVE/ TRACE [facility] Comment on above: Performed By: #### E RUR ####[facility] Eeafesmfwq[address] [place], [place] [address]Dr. Donna Malone UR MICRO IND NOT INDICATED Normal [facility] Comment on above: Performed By: #### E RUR ####[facility] Fscbiulbox[address] [place], [place] [address]Dr. Donna Malone Urobilinogen Qn (U) 0.2 {Jermain'U}/dL Normal 0.2 - 1. 0 [facility] Comment on above: Performed By: #### E RUR ####[facility] Kvgkupijyc[address] [place], [place] [address]DrElizabeth Malone PROF CHEM 8 (BAS METB)on Anion gap [Moles/Vol] 16.4 mmol/L Normal [facility] Comment on above: Performed By: #### B MP ####[facility] Dkktfpboio[address] [place], [place] [address]DrElizabeth Malone Calcium [Mass/Vol] 9.4 mg/dL Normal 8.5-10.1 [facility] Comment on above: Performed By: #### B MP ####[facility] Zsorlgcfyb[address] [place], [place] [address]DrElizabeth Malone Chloride [Moles/Vol] 103 mmol/L Normal 98-107 [facility] Comment on above: Performed By: #### B MP ####[facility] [address]gbs[address] [place] [address]Dr. Donna Malone CO2 [Moles/Vol] 23.7 mmol/L Normal 21.0-32.0 [facility] Comment on above: Performed By: #### B MP ####[facility] [address]hbyttu[address] [place] [address]Dr. Donna Malone Creatinine [Mass/Vol] 1.12 mg/dL Normal 0.70-1.30 [facility] Comment on above: Performed By: #### B MP ####[facility] Azofuqmxxb[address] [place], [place] [address]Dr. Donna Faisal EGFR-AF RWANDAN >60 Normal >=60 [facility] Comment on above: Performed By: #### B MP ####[facility] Doxgbjawbo[address] [place], [place] [address]Dr. Rubyyvan Faisal EGFR-NON AF RWANDAN >60 Normal >=60 [facility] Comment on above: Performed By: #### B MP ####[facility] Zoyxsuccjl7[address] [place], [place] [address]Dr. Donna Faisal Glucose [Mass/Vol] 170 mg/dL Critically high 74-106 [facility] Comment on above: Performed By: #### B MP ####[facility] Dtzhxtiszx[address] [place], [place] [address]Dr. Rubyyvan Faisal Potassium [Moles/Vol] 4.1 mmol/L Normal 3.5-5.1 [facility] Comment on above: Performed By: #### B MP ####[facility] Lxrurchons[address] [place], [place] [address]Dr. Donna Malone Sodium [Moles/Vol] 139 mmol/L Normal 136-145 [facility] Comment on above: Performed By: #### B MP ####[facility] [address]brexjf[address] [place] [address]Dr. Rubyyvan Faisal Urea nitrogen [Mass/Vol] 9.0 mg/dL Normal 7.0-18.0 [facility] Comment on above: Performed By: #### B MP ####[facility] Egelcafjqy24[address] [place] [address]Dr. Donna Malone Urea nitrogen/Creatinine [Mass ratio] 8.0 mg/mg Normal [facility] Comment on above: Performed By: #### B MP ####[facility] [address]eq[address] [place], [place] [address]Dr. Donna Malone ACETONE SERUMon 08-10-2022 ACETONE Negative Normal NEGATIVE [facility] Comment on above: Performed By: #### A CETON ####[facility] Xqxovrrmlq[address] [place], [place] [address]Dr. Donna Malone CBC AUTO DIFFon 08-10-2022 BASO # 0.1 103/ul Normal 0.0-0.1 [facility] Comment on above: Performed By: #### C BC ####[facility] Pwfkudiqxi[address] [place], [place] [address]Dr. Donna Malone Basophils/100 WBC (Bld) 0.7 % Normal 0.2-2.0 [facility] Comment on above: Performed By: #### C BC ####[facility] K[address]wapwczt[address] [place], [place] [address]Dr. Donna Malone EO # 0.2 103/ul Normal 0.0-0.7 [facility] Comment on above: Performed By: #### C BC ####[facility] Hsxwhimzxp[address] [place], [place] [address]Dr. Donna Malone Eosinophils/100 WBC (Bld) 2.0 % Normal 0.9-7.0 [facility] Comment on above: Performed By: #### C BC ####[facility] Sbvkfoixff8[address] [place], [place] [address]Dr. Donna Malone Erythrocyte distribution width (RBC) [Ratio] 14.3 % Normal 11.0-15.0 [facility] Comment on above: Performed By: #### C BC ####[facility] Agtgenvwhi7[address] [place], [place] [address]Dr. Donna Malone Hematocrit (Bld) [Volume fraction] 37.3 % Critically low 42.0-54.0 [facility] Comment on above: Performed By: #### C BC ####[facility] [address]tsxmu[address] [place] [address]Dr. Donna Malone Hemoglobin (Bld) [Mass/Vol] 12.1 g/dL Critically low 14.0-18.0 [facility] Comment on above: Performed By: #### C BC ####[facility] Ifevyeswtu[address] [place] [address]Dr. Donna Malone IG # 0.03 10e3/ul Normal 0.00-0.03 [facility] Comment on above: Performed By: #### C BC ####[facility] Xjdivkrzvj[address] [place] [address]Dr. Donna Malone IG % 0.4 % Normal 0.0-0.5 [facility] Comment on above: Performed By: #### C BC ####[facility] Qqpjlwfbwr[address] [place], [place] [address]Dr. Donna Malone LYMPH # 1.3 103/ul Normal 1.2-3.8 [facility] Comment on above: Performed By: #### C BC ####[facility] [address]qftyoc[address] [place] [address]Dr. Donna Malone Lymphocytes/100 WBC (Bld) 18.3 % Critically low 20.5-60.0 [facility] Comment on above: Performed By: #### C BC ####[facility] Ahpjjzxhyp[address] [place], [place] [address]Dr. Donna Malone MANUAL DIFF REQ NO Normal [facility] Comment on above: Performed By: #### C BC ####[facility] Shsp[address]rmjv[address] [place] [address]Dr. Donna Malone MCH (RBC) [Entitic mass] 30.1 pg Normal 25.9-34.0 [facility] Comment on above: Performed By: #### C BC ####[facility] Lamcrzwxnv[address] [place] [address]Dr. Donna Malone MCHC (RBC) [Mass/Vol] 32.4 g/dL Normal 29.9-35.2 [facility] Comment on above: Performed By: #### C BC ####[facility] Ce[address]aezvllh[address] [place] [address]Dr. Donna Malone MCV (RBC) [Entitic vol] 92.8 fL Normal 80.0-94.0 [facility] Comment on above: Performed By: #### C BC ####[facility] P[address]oz[address]mbun[address] [place] [address]Dr. Donna Malone MONO # 0.6 103/ul Normal 0.3-0.8 [facility] Comment on above: Performed By: #### C BC ####[facility] Agsxcfgfex32[address] [place] [address]Dr. Donna Malone Monocytes/100 WBC (Bld) 7.6 % Normal 1.7-12.0 [facility] Comment on above: Performed By: #### C BC ####[facility] Pippunmdwf[address] [place], [place] [address]Dr. Donna Malone NEUT # 5.2 103/ul Normal 1.4-6.5 [facility] Comment on above: Performed By: #### C BC ####[facility] [address]yr[address]zl[address] [place], [place] [address]Dr. Donna Malone Neutrophils/100 WBC (Bld) 71.0 % Normal 43.0-75.0 [facility] Comment on above: Performed By: #### C BC ####[facility] [address]ldzb[address] [place], [place] [address]Dr. Donna Malone Platelet mean volume (Bld) [Entitic vol] 11.6 fL Normal 9.5-13.5 [facility] Comment on above: Performed By: #### C BC ####[facility] [address]pmrwgos[address] [place] [address]Dr. Donna Malone PLT 237 103/ul Normal 150-450 [facility] Comment on above: Performed By: #### C BC ####[facility] Amaavlezaa[address] [place] [address]Dr. Donna Faisal RBC 4.02 106/ul Critically low 4.70-6.10 [facility] Comment on above: Performed By: #### C BC ####[facility] G[address]emmha[address] [place], [place] [address]Bd. Donna Malone WBC 7.3 103/ul Normal 4.0-11.0 [facility] Comment on above: Performed By: #### C BC ####[facility] [address]up[address]ten[address] [place], [place] [address]Ok. Donna Malone Covid-19 PCR (CVDTBH)on SARS-CoV-2 (COVID-19) RNA JOSÉ MIGUEL+probe Ql (Unsp spec) Not detected Normal NOT DETECTED [facility] Comment on above: Result Comment: When [...] for this test is supported by the [place] of [employer] and Human Service's declaration that [...] be used). Performed By: #### C VDTBH ####[facility] [address]ylbap[address] [place] [id number]. Donna Malone LACTATE/LACTIC ACIDon 2021 Lactate [Moles/Vol] 1.3 mmol/L Normal 0.4-1.9 [facility] Comment on above: Performed By: #### L ACT ####[facility] X[address]otzcjcb57[address] [place] [address]Dr. Donna Malone PROF 14(COMP METB)on 022 Albumin [Mass/Vol] 2.9 g/dL Critically low 3.4-5.0 [facility] Comment on above: Performed By: #### C MP, HSTROPN ####[facility] [address]ujxxlha8[address] [place] [address]Dr. Donna Malone Albumin/Globulin [Mass ratio] 0.7 {ratio} Normal [facility] Comment on above: Performed By: #### C MARTI, HSTROPN ####[facility] [address]fcuny[address] [place] [address]Dr. Donna Malone ALP [Catalytic activity/Vol] 45 U/L Critically low 46-116 [facility] Comment on above: Performed By: #### C MARTI, HSTROPN ####[facility] A[address]oyeieqw80[address] [place] [address]Dr. Donna Malone ALT [Catalytic activity/Vol] 12 U/L Critically low 16-63 [facility] Comment on above: Performed By: #### C MARTI, HSTROPN ####[facility] Nftciakpng[address] [place], [place] [address]Dr. Donna Malone Anion gap [Moles/Vol] 10.9 mmol/L Normal [facility] Comment on above: Performed By: #### C MARTI, HSTROPN ####[facility] Lbbrsxwvyp9[address] [place], [place] [address]Dr. Donna Malone AST [Catalytic activity/Vol] 10 U/L Critically low 15-37 [facility] Comment on above: Performed By: #### C MARTI, HSTROPN ####[facility] Hvvipvbpte[address] [place], [place] [address]Dr. Donna Malone Bilirubin [Mass/Vol] 0.3 mg/dL Normal 0.2-1.0 [facility] Comment on above: Performed By: #### C MARTI, HSTROPN ####[facility] Gotecrwhgq[address] [place], [place] [address]Dr. Donna Malone Calcium [Mass/Vol] 8.9 mg/dL Normal 8.5-10.1 [facility] Comment on above: Performed By: #### C MARTI, HSTROPN ####[facility] Ggibgsggdd8[address] [place], [place] [address]Dr. Donna Malone Chloride [Moles/Vol] 106 mmol/L Normal 98-107 [facility] Comment on above: Performed By: #### C MARTI, HSTROPN ####[facility] Hwxvlkhght0[address] [place] [address]Dr. Donna Malone CO2 [Moles/Vol] 29.4 mmol/L Normal 21.0-32.0 [facility] Comment on above: Performed By: #### C MARTI, HSTROPN ####[facility] Gnmjvgjxji[address] [place], [place] [address]Dr. Rubyyvan Malone Creatinine [Mass/Vol] 1.15 mg/dL Normal 0.70-1.30 [facility] Comment on above: Performed By: #### C MARTI, HSTROPN ####[facility] Tcqkjxayhh[address] [place], [place] [address]Dr. Rubyyvan Faisal EGFR-AF RWANDAN >60 Normal >=60 [facility] Comment on above: Performed By: #### C MARTI, HSTROPN ####[facility] Uyvlkrrjqt[address] [place], [place] [address]Dr. Donna Faisal EGFR-NON AF RWANDAN >60 Normal >=60 [facility] Comment on above: Performed By: #### C MARTI, HSTROPN ####[facility] Eocnxpmrac[address] [place], [place] [address]Dr. Rubyyvan Malone Globulin (S) [Mass/Vol] 4.2 g/dL Normal [facility] Comment on above: Performed By: #### C MARTI, HSTROPN ####[facility] [address]tvwkwkdjr0[address] [place], [place] [address]Dr. Donna Malone Glucose [Mass/Vol] 116 mg/dL Critically high 74-[address] [facility] Comment on above: Performed By: #### C MARTI, HSTROPN ####[facility] Kfcwrlroyb[address] [place], [place] [address]Dr. Donna Malone Potassium [Moles/Vol] 4.3 mmol/L Normal 3.5-5.1 [facility] Comment on above: Performed By: #### C MARTI, HSTROPN ####[facility] [address]az[address]mlzek[address] [place] [address]Dr. Donna Malone Protein [Mass/Vol] 7.1 g/dL Normal 6.4-8.2 [facility] Comment on above: Performed By: #### C MARTI, HSTROPN ####[facility] J[address]ypbjxczf50[address] [place] [address]Dr. Donna Malone Sodium [Moles/Vol] 142 mmol/L Normal 136-145 [facility] Comment on above: Performed By: #### C MP, HSTROPN ####[facility] Ab[address]rhzwsf74[address] [place] [address]Dr. Donna Malone Urea nitrogen [Mass/Vol] 9.0 mg/dL Normal 7.0-18.0 [facility] Comment on above: Performed By: #### C MARTI, HSTROPN ####[facility] Ufwhmkbfpq24[address] [place] [address]Dr. Rubyyvan Malone Urea nitrogen/Creatinine [Mass ratio] 7.8 mg/mg Normal [facility] Comment on above: Performed By: #### C MARTI, HSTROPN ####[facility] [address]zjwt39[address] [place] [address]Dr. Donna Malone TROPONIN, HIGH SENSITIVITYon 08-10-2022 HSTROP 9.1 pg/mL Normal 4.0-76.1 [facility] Comment on above: Result Comment: CUT- OFF POINTS HAVE BEEN ESTABLISHED BASED ON THE FOURTH UNIVERSAL DEFINITIONS OF MYOCARDIALINFARCTION. THE UPPER REFERENCE LIMIT (URL) OF TROPONIN, DEFINED THE 99TH PERCENTILE OFcTnI DISTRIBUTION IN A REFERENCE POPULATION, HAS BEEN CONFIRMED THE DECISION THRESHOLDFOR WA DIAGNOSIS. Performed By: #### C MP, HSTROPN ####[facility] [address]ranaygm[address] [place] [id number]. Donna Malone XR KNEE RT 4V or >on 022 XR KNEE RT 4V or > Normal [facility] CT HEAD WO CONon 08-05-2022 CT HEAD WO CON Normal [facility] CT CSPINE WO CONon 2 CT CSPINE WO CON Normal [facility] CT FACIAL BONES WO CONon CT FACIAL BONES WO CON Normal [facility] CT LSPINE WO CONon 2 CT LSPINE WO CON Normal [facility] Glucose Glucometer (BldC) [M ass/Vol]Ordered By: Sang Bauer on 07-20-2022 Glucose [Mass/Vol] 139 mg/dL [facility] Comment on above: Random Glucose Refer ence Range is dependent on time and content of last meal. Glucose of more than 200 mg/dL in a nonstressed, ambulatory subject supports the diagnosis of Diabetes Mellitus. No Panel InformationOrdered By: Sang Bauer on 07-20-2022 Bedside Glucose Comment Glu2: cleaned meter [facility] Cholesterol [Mass/volume] in Serum or PlasmaOrdered By: Sang Bauer on 07-18-2022 Cholesterol [Mass/Vol] 136 mg/dL 140-200 [facility] Comment on above: Chol less than 200 m g/dl low riskChol 201-239 mg/dl borderline riskChol 240 mg/dl and greater high risk Cholesterol in LDL Calc [Mas s/Vol]Ordered By: Sang Bauer on 07-18-2022 Cholesterol in LDL [Mass/Vol] 81 mg/dL 0-100 [facility] Comment on above: LDL ATP III CLASSIFI CATIONLDL less than 100 mg/dL OptimalLDL 100-129 mg/dL Near or above optimalLDL 130-159 mg/dL Borderline highLDL 160-189 mg/dL HighLDL greater than 189 mg/dL Very high Cholesterol in VLDL Calc [Ma ss/Vol]Ordered By: Sang Bauer on 07-18-2022 Cholesterol in VLDL [Mass/Vol] 17 mg/dL [facility] Serum or plasma high density lipoprotein (HDL) cholesterol measurementOrdered By: Sang Bauer on 07-18-2022 Cholesterol in HDL [Mass/Vol] 38 mg/dL 29-71 [facility] Comment on above: HDL CHOL ATP-III CLA SSIFICATION Cardiovascular RiskHDL > or equal to 60 mg/dL LOWHDL < 40 mg/dL HIGH Serum or plasma total choles terol/high density lipoprotein (HDL) cholesterol mass ratOrdered By: Sang Bauer on 07-18-2022 Cholesterol.total/Chol esterol in HDL [Mass ratio] 3.6 {ratio} <5.0 [facility] Triglyceride [Mass/volume] i n Serum or PlasmaOrdered By: Sang Bauer on 07-18-2022 Triglyceride [Mass/Vol] 85 mg/dL 35-149 [facility] Comment on above: TRIG ATP [...] aPTT Coag (PPP) [Time] 35.8 s 25.1-36.5 [facility] Albumin [Mass/volume] in Ser um or PlasmaOrdered By: Gayathri Leal on 07-17-2022 Albumin [Mass/Vol] 3.1 g/dL 3.2-5.5 [facility] Amphetamine Screen Ql (U)Ord ered By: Gayathri Leal on 07-17-2022 Amphetamines Ql (U) Negative Negative [facility] Automated erythrocytes count in urine sediment (number/area)Ordered By: Gayathri Leal on 07-17-2022 RBC Auto (Urine sed) [#/Area] 3-4 [HPF] 0-4 [facility] Automated leukocytes count i n urine sediment (number/area)Ordered By: Gayahtri Leal on 07-17-2022 WBC Auto (Urine sed) [#/Area] 1-2 [HPF] 0-4 [facility] Barbiturates [Presence] in U rineOrdered By: Gayathri Leal on 07-17-2022 Barbiturates Ql (U) Negative Negative [facility] Basophils Auto (Bld) [#/Vol] Ordered By: Gayathri Leal on 07-17-2022 Basophils (Bld) [#/Vol] 0.1 10*3/uL 0.0-0.2 [facility] Basophils/100 WBC Auto (Bld) Ordered By: Gayathri Leal on 07-17-2022 Basophils/100 WBC (Bld) 1.0 % . [facility] Benzodiazepines [Presence] i n UrineOrdered By: Gayathri Leal on 07-17-2022 Benzodiazepines Ql (U) Positive [facility] Bilirubin Test strip Ql (U)O rdered By: Gayathri Leal on 07-17-2022 Bilirubin Ql (U) Negative Negative [facility] COVID CepheidOrdered By: Olya Leal on 07-17-2022 SARS-CoV-2 (COVID-19) Ab IA Ql Negative Negative [facility] Comment on above: This is a duplicate [employer] Xpert Xpress CoV-2/Flu/RSV Plus RNA by RT-PCR result to be used for statistical tracking purpose only. SARS-CoV-2 (COVID-19) RNA JOSÉ MIGUEL+probe Ql (Unsp spec) [facility] Cannabinoids [Presence] in U rine by Screen methodOrdered By: Gayathri Leal on 07-17-2022 Cannabinoids Screen Ql (U) Negative Negative [facility] Comment on above: These are unconfirme d results and should not be used for legal purposes. Drug Cut-Off Concentration: AMPH 1000 ng/mL EWA 200 ng/mL JOHN 200 ng/mL COCM 300 ng/mL OP 300 ng/mL PCP 25 ng/mL THC 20 ng/mL Color Auto (U)Ordered By: Dung Leal on 07-17-2022 Color (U) Yellow Yellow [facility] Creatine kinase [Enzymatic a ctivity/volume] in Serum or PlasmaOrdered By: Gayathri Leal on 07-17-2022 CK [Catalytic activity/Vol] 137 U/L 22-269 [facility] Creatinine and Glomerular fi ltration rate.predicted panel (S/P/Bld)Ordered By: Gayathri Leal on 07-17-2022 Creatinine [Mass/Vol] 1.06 mg/dL 0.64-1.27 [facility] Direct bilirubin measurement Ordered By: Gayathri Leal on 07-17-2022 Bilirubin.direct [Mass/Vol] mg/dL 0.0-0.4 [facility] Eosinophils Auto (Bld) [#/Vo l]Ordered By: Gayathri Leal on 07-17-2022 Eosinophils (Bld) [#/Vol] 0.1 10*3/uL 0.0-0.45 [facility] Eosinophils/100 WBC Auto (Bl d)Ordered By: Gayathri Leal on 07-17-2022 Eosinophils/100 WBC (Bld) 0.7 % . [facility] Erythrocyte distribution wid th Auto (RBC) [Ratio]Ordered By: Gayathri Leal on 07-17-2022 Erythrocyte distribution width (RBC) [Ratio] 15.8 % 12.0-14.8 [facility] Estimated glomerular filtrat ion rate (GFR) non- AmericanOrdered By: Gayathri Leal on 07-17-2022 GFR/1.73 sq M.predicted among non-blacks MDRD (S/P/Bld) [Vol rate/Area] > 60 mL/Min [facility] Globulin Calc (S) [Mass/Vol] Ordered By: Gayathri Leal on 07-17-2022 Globulin (S) [Mass/Vol] 3.0 g/dL [facility] Glucose mean value [Mass/vol ume] in Blood Estimated from glycated hemoglobinOrdered By: Sang Bauer on 07-17-2022 Average glucose Estimated from glycated hemoglobin (Bld) [Mass/Vol] 114 mg/dL [facility] Hematocrit Auto (Bld) [Volum e fraction]Ordered By: Gayathri Leal on 07-17-2022 Hematocrit (Bld) [Volume fraction] 37.3 % 38.8-50.0 [facility] Hemoglobin A1c percentageOrd ered By: Sang Bauer on 07-17-2022 HbA1c (Bld) [Mass fraction] 5.6 % 4.3-5.6 [facility] Comment on above: Increased risk for d iabetes: 5.7 - 6.4diabetes: >6.4glycemic control for adults with diabetes: <7.0 Hemoglobin [Mass/volume] in BloodOrdered By: Gayathri Leal on 07-17-2022 Hemoglobin (Bld) [Mass/Vol] 12.3 g/dL 13.0-17.0 [facility] Ketones Auto test strip (U) [Mass/Vol]Ordered By: Gayathri Leal on 07-17-2022 Ketones (U) [Mass/Vol] 2+ Negative Fi [facility] - Chemistry and C hemistry - challengeOrdered By: Gayathri Leal on 07-17-2022 Natriuretic peptide B (Bld) [Mass/Vol] 116.0 pg/mL 5-100 [facility] Laboratory - CoagulationOrde red By: Gayathri Leal on 07-17-2022 PT Coag (PPP) [Time] 12.5 s 9.0-12.9 [facility] - Drug toxicology Ordered By: Gayathri Leal on 07-17-2022 Opiates Ql (U) Negative Negative [facility] - Hematology and Cell countsOrdered By: Gayathri Leal on 07-17-2022 Nucleated RBC/100 WBC (Bld) [Ratio] 0.1 % 0-0.5 [facility] - UrinalysisOrder ed By: Gayathri Leal on 07-17-2022 Hyaline casts LM Ql (Urine sed) None seen [LPF] 0-8 [facility] Leukocytes [#/volume] in Blo od by Automated countOrdered By: Gayathri Lael on 07-17-2022 WBC (Bld) [#/Vol] 7.8 10*3/uL 4.5-11.0 [facility] Lymphocytes Auto (Bld) [#/Vo l]Ordered By: Gayathri Leal on 07-17-2022 Lymphocytes (Bld) [#/Vol] 2.3 10*3/uL 1.00-4.8 [facility] Lymphocytes/100 WBC Auto (Bl d)Ordered By: Gayathri Leal on 07-17-2022 Lymphocytes/100 WBC (Bld) 29.5 % . [facility] MCH Auto (RBC) [Entitic mass ]Ordered By: Gayathri Leal on 07-17-2022 MCH (RBC) [Entitic mass] 30.2 pg 27.5-35.2 [facility] MCHC Auto (RBC) [Mass/Vol]Or dered By: Gayathri Leal on 07-17-2022 MCHC (RBC) [Mass/Vol] 33.1 g/dL 32.5-35.6 [facility] MCV Auto (RBC) [Entitic vol] Ordered By: Gayathri Leal on 07-17-2022 MCV (RBC) [Entitic vol] 91.5 fL 83.5-101 [facility] Monocyte %Ordered By: Zeinab Leal on 07-17-2022 Monocyte % 20 umol/L [facility] Monocytes Auto (Bld) [#/Vol] Ordered By: Gayathri Leal on 07-17-2022 Monocytes (Bld) [#/Vol] 0.4 10*3/uL 0.0-0.8 [facility] Monocytes/100 WBC Auto (Bld) Ordered By: Gayathri Leal on 07-17-2022 Monocytes/100 WBC (Bld) 5.4 % . [facility] Neutrophils Auto (Bld) [#/Vo l]Ordered By: Gayathri Leal on 07-17-2022 Neutrophils (Bld) [#/Vol] 4.9 10*3/uL 1.8-7.7 [facility] Neutrophils/100 WBC Auto (Bl d)Ordered By: Gayathri Leal on 07-17-2022 Neutrophils/100 WBC (Bld) 63.4 % . [facility] Nitrite Test strip Ql (U)Ord ered By: Gayathri Leal on 07-17-2022 Nitrite Ql (U) Negative Negative [facility] No Panel InformationOrdered By: Gayathri Leal on 07-17-2022 Estimated GFR () > 60 mL/Min [facility] Comment on above: GFR estimated refere nce range: According to KDOQI guidelines, <60 ml/min/1.73m2 is sufficient to diagnose a patient with chronic kidney disease. Pharmacy Creatinine Clearance (Chem N/A [facility] Phencyclidine Screen Ql (U)O rdered By: Gayathri Leal on 07-17-2022 Phencyclidine Ql (U) Negative Negative [facility] Platelet mean volume Auto (B ld) [Entitic vol]Ordered By: Gayathri Leal on 07-17-2022 Platelet mean volume (Bld) [Entitic vol] 10.2 fL 6.6-10.1 [facility] Platelet poor plasma interna tional normalized ratio (INR) by coagulation assay (relatOrdered By: Gayathri Leal on 07-17-2022 INR Coag (PPP) [Relative time] 1.1 {INR} [facility] Comment on above: INR Therapeutic [...] 07-17-2022 Platelets (Bld) [#/Vol] 239 10*3/uL 150-450 [facility] Protein Auto test strip (U) [Mass/Vol]Ordered By: Gayathri Leal on 07-17-2022 Protein (U) [Mass/Vol] Negative Negative [facility] Protein [Mass/volume] in Ser um or PlasmaOrdered By: Gayathri Leal on 07-17-2022 Protein [Mass/Vol] 6.1 g/dL 6.1-7.9 [facility] RBC Auto (Bld) [#/Vol]Ordere d By: Gayathri Leal on 07-17-2022 RBC (Bld) [#/Vol] 4.07 10*6/uL 3.90-5.60 [facility] Serum or plasma alanine del valle otransferase measurement without P-5'-P (enzymatic activiOrdered By: Gayathri Leal on 07-17-2022 ALT No additional P-5'-P [Catalytic activity/Vol] 13 U/L 10-60 [facility] Serum or plasma albumin/glob ulin mass ratioOrdered By: Gaytahri Leal on 07-17-2022 Albumin/Globulin [Mass ratio] 1.0 {ratio} [facility] Serum or plasma alkaline gail sphatase measurement (enzymatic activity/volume)Ordered By: Gayathri Leal on 07-17-2022 ALP [Catalytic activity/Vol] 37 U/L 32-92 [facility] Serum or plasma anion gap de terminationOrdered By: Gayathri Leal on 07-17-2022 Anion gap [Moles/Vol] 12.1 mmol/L 6.0-15.0 [facility] Serum or plasma aspartate am inotransferase measurement (enzymatic activity/volume)Ordered By: Gayathri Leal on 07-17-2022 AST [Catalytic activity/Vol] 15 U/L 10-42 [facility] Serum or plasma calcium deepti urement (mass/volume)Ordered By: Gayathri Leal on 07-17-2022 Calcium [Mass/Vol] 8.8 mg/dL 8.2-10.2 [facility] Serum or plasma chloride deepak surement (moles/volume)Ordered By: Gayathri Leal on 07-17-2022 Chloride [Moles/Vol] 108 mmol/L 95-114 [facility] Serum or plasma creatine kin ase MB (CKMB)/total creatine kinase (CK) ratio by calculaOrdered By: Gayathri Leal on 07-17-2022 CK.MB Calc [Catalytic fraction] 2.6 % 0.00-2.50 [facility] Serum or plasma creatine kin ase MB measurement (mass/volume)Ordered By: Gayathri Leal on 07-17-2022 CK.MB [Mass/Vol] 3.6 ng/mL 0.6-6.3 [facility] Serum or plasma glucose deepti urement (mass/volume)Ordered By: Gayathri Leal on 07-17-2022 Glucose [Mass/Vol] 91 mg/dL 70-100 [facility] Comment on above: ADA recommended refe rence rangeRandom Glucose Reference Range is dependent on time and content of last meal. Glucose of more than 200 mg/dL in a nonstressed, ambulatory subject supports the diagnosis of Diabetes Mellitus. Serum or plasma non-glucuron idated bilirubin measurement (mass/volume)Ordered By: Gayathri Leal on 07-17-2022 Bilirubin.indirect [Mass/Vol] TNP [facility] Comment on above: Test not performed Serum or plasma potassium me asurement (moles/volume)Ordered By: Gayathri Leal on 07-17-2022 Potassium [Moles/Vol] 4.0 mmol/L 3.5-5.1 [facility] Serum or plasma sodium measu rement (moles/volume)Ordered By: Gayathri Leal on 07-17-2022 Sodium [Moles/Vol] 139 mmol/L 136-146 [facility] Serum or plasma total biliru bin measurement (mass/volume)Ordered By: Gayathri Leal on 07-17-2022 Bilirubin [Mass/Vol] 0.8 mg/dL 0.3-1.2 [facility] Serum or plasma total carbon dioxide measurement (moles/volume)Ordered By: Gayathri Leal on 07-17-2022 CO2 [Moles/Vol] 22.9 mmol/L 22.0-30.0 [facility] Serum or plasma urea nitroge n measurement (mass/volume)Ordered By: Gayathri Leal on 07-17-2022 Urea nitrogen [Mass/Vol] 12 mg/dL 9-23 [facility] Specific gravity Auto test s trip (U) [Rel density]Ordered By: Gayathri Leal on 07-17-2022 Specific gravity (U) [Rel density] 1.024 1.001-1.03 0 [facility] Squamous epithelial cells de tection in urine sediment by light microscopyOrdered By: Gayathri Leal on 07-17-2022 Epithelial cells.squamous LM Ql (Urine sed) None seen [HPF] 0-2 [facility] Troponin I.cardiac [Mass/vol ume] in Serum or Plasma by High sensitivity methodOrdered By: Sang Bauer on 07-17-2022 Troponin I.cardiac High sensitivity method [Mass/Vol] 7 pg/mL 0-20 [facility] Urine bacteria detection by automated methodOrdered By: Gayathri Leal on 07-17-2022 Bacteria Auto Ql (U) None seen None Seen [facility] Urine clarity by refractomet ry automatedOrdered By: Gayathri Leal on 07-17-2022 Clarity Refractometry automated (U) Clear Clear [facility] Urine cocaine detectionOrder ed By: Gayathri Leal on 07-17-2022 Cocaine Ql (U) Negative Negative [facility] Urine glucose measurement by automated test strip (mass/volume)Ordered By: Gayathri Leal on 07-17-2022 Glucose Auto test strip (U) [Mass/Vol] Normal mg/dL Normal [facility] Urine hemoglobin detection b y automated test stripOrdered By: Gayathri Leal on 07-17-2022 Hemoglobin Auto test strip Ql (U) Negative Negative [facility] Urine leukocyte esterase det ection by automated test stripOrdered By: Gayathri Leal on 07-17-2022 Leukocyte esterase Auto test strip Ql (U) 1+ Negative [facility] Urobilinogen Auto test strip (U) [Mass/Vol]Ordered By: Gayathri Leal on 07-17-2022 Urobilinogen (U) [Mass/Vol] Normal mg/dL Normal [facility] pH Auto test strip (U)Ordere d By: Gayathri Leal on 07-17-2022 pH (U) 6.5 [pH] 5.0-9.0 [facility] AMMONIAon 07-16-2022 Ammonia (P) [Moles/Vol] 44 umol/L Critically high [facility] Comment on above: Performed By: #### A MM ####[facility] [address] [place] [address]Dr. Donna Maloen BNPon 07-16-2022 Natriuretic peptide B (Bld) [Mass/Vol] 236.0 pg/mL Normal <=900.0 [facility] Comment on above: Performed By: #### C MP, BNP ####[facility] [address] [place] [address]Dr. Donna Malone CBC AUTO DIFFon 07-16-2022 BASO # 0.1 103/ul Normal 0.0-0.1 [facility] Comment on above: Performed By: #### C BC ####[facility] [address] [place] [address]DrElizabeth Malone Basophils/100 WBC (Bld) 1.0 % Normal 0.2-2.0 [facility] Comment on above: Performed By: #### C BC ####[facility] [address] [place] [address]Dr. Donna Malone EO # 0.2 103/ul Normal 0.0-0.7 [facility] Comment on above: Performed By: #### C BC ####[facility] [address] [place] [address]Dr. Donna Malone Eosinophils/100 WBC (Bld) 3.3 % Normal 0.9-7.0 [facility] Comment on above: Performed By: #### C BC ####[facility] [address] [place], [place] [address]Dr. Donna Malone Erythrocyte distribution width (RBC) [Ratio] 15.1 % Critically high 11.0-15.0 [facility] Comment on above: Performed By: #### C BC ####[facility] [address] [place], [place] [address]Dr. Rubyyvan Malone Hematocrit (Bld) [Volume fraction] 36.1 % Critically low 42.0-54.0 [facility] Comment on above: Performed By: #### C BC ####[facility] [address] [place], [place] [address]Dr. Donna Malone Hemoglobin (Bld) [Mass/Vol] 12.0 g/dL Critically low 14.0-18.0 [facility] Comment on above: Performed By: #### C BC ####[facility] [address] [place], [place] [address]Dr. Donna Malone IG # 0.01 10e3/ul Normal 0.00-0.03 [facility] Comment on above: Performed By: #### C BC ####[facility] [address] [place], [place] [address]Dr. Rubyyvan Malone IG % 0.2 % Normal 0.0-0.5 [facility] Comment on above: Performed By: #### C BC ####[facility] [address] [place], [place] [address]DrElizabeth Malone LYMPH # 2.5 103/ul Normal 1.2-3.8 [facility] Comment on above: Performed By: #### C BC ####[facility] [address] [place] [address]Dr. Donna Malone Lymphocytes/100 WBC (Bld) 41.1 % Normal 20.5-60.0 [facility] Comment on above: Performed By: #### C BC ####[facility] [address] [place] [address]Dr. Donna Malone MANUAL DIFF REQ NO Normal [facility] Comment on above: Performed By: #### C BC ####[facility] [address] [place] [id number]. Donna Malone MCH (RBC) [Entitic mass] 30.6 pg Normal 25.9-34.0 [facility] Comment on above: Performed By: #### C BC ####[facility] [address] [place], [place] [address]Dr. Donna Malone MCHC (RBC) [Mass/Vol] 33.2 g/dL Normal 29.9-35.2 [facility] Comment on above: Performed By: #### C BC ####[facility] [address] [place], [place] [address]DrElizabeth Malnoe MCV (RBC) [Entitic vol] 92.1 fL Normal 80.0-94.0 [facility] Comment on above: Performed By: #### C BC ####[facility] [address] [place], [place] [address]Dr. Donna Malone MONO # 0.5 103/ul Normal 0.3-0.8 [facility] Comment on above: Performed By: #### C BC ####[facility] [address] [place], [place] [id number]. Donna Malone Monocytes/100 WBC (Bld) 7.4 % Normal 1.7-12.0 [facility] Comment on above: Performed By: #### C BC ####[facility] [address] [place], [place] [id number] Malone NEUT # 2.9 103/ul Normal 1.4-6.5 [facility] Comment on above: Performed By: #### C BC ####[facility] [address] [place] [address]Dr. Donna Malone Neutrophils/100 WBC (Bld) 47.0 % Normal 43.0-75.0 [facility] Comment on above: Performed By: #### C BC ####[facility] [address] [place] [id number]. Donna Malone Platelet mean volume (Bld) [Entitic vol] 11.4 fL Normal 9.5-13.5 [facility] Comment on above: Performed By: #### C BC ####[facility] [address] [place] [address]Dr. Donna Malone PLT 206 103/ul Normal 150-450 [facility] Comment on above: Performed By: #### C BC ####[facility] [address] [place] [address]Dr. Donna Malone RBC 3.92 106/ul Critically low 4.70-6.10 [facility] Comment on above: Performed By: #### C BC ####[facility] [address] [place] [address]Dr. Donna Malone WBC 6.1 103/ul Normal 4.0-11.0 [facility] Comment on above: Performed By: #### C BC ####[facility] [address] [place] [address]Dr. Donna Malone ECHO LIMITED STUDYon 022 ECHO LIMITED STUDY Normal [facility] MRI BRAIN WO CONon 2 MRI BRAIN WO CON Normal [facility] PROF 14(COMP METB)on 022 Albumin [Mass/Vol] 2.8 g/dL Critically low 3.4-5.0 [facility] Comment on above: Performed By: #### C MP, BNP ####[facility] [address] [place] [address]Dr. Donna Malone Albumin/Globulin [Mass ratio] 0.9 {ratio} Normal [facility] Comment on above: Performed By: #### C MP, BNP ####[facility] [address] [place], [place] [address]Dr. Donna Malone ALP [Catalytic activity/Vol] 36 U/L Critically low 46-116 [facility] Comment on above: Performed By: #### C MP, BNP ####[facility] [address] [place], [place] [address]Dr. Donna Malone ALT [Catalytic activity/Vol] 13 U/L Critically low 16-63 [facility] Comment on above: Performed By: #### C MP, BNP ####[facility] [address] [place], [place] [address]Dr. Donna Malone Anion gap [Moles/Vol] 10.4 mmol/L Normal [facility] Comment on above: Performed By: #### C MP, BNP ####[facility] V[address] [place], [place] [address]Dr. Donna Malone AST [Catalytic activity/Vol] 13 U/L Critically low 15-37 [facility] Comment on above: Performed By: #### C MP, BNP ####[facility] [address] [place], [place] [address]Dr. Rubyyvan Malone Bilirubin [Mass/Vol] 0.3 mg/dL Normal 0.2-1.0 [facility] Comment on above: Performed By: #### C MP, BNP ####[facility] [address] [place], [place] [address]Dr. Donna Malone Calcium [Mass/Vol] 8.2 mg/dL Critically low 8.5-10.1 [facility] Comment on above: Performed By: #### C MP, BNP ####[facility] [address] [place], [place] [address]Dr. Donna Malone Chloride [Moles/Vol] 108 mmol/L Critically high 98-107 [facility] Comment on above: Performed By: #### C MP, BNP ####[facility] [address] [place], [place] [address]Dr. Donna Malone CO2 [Moles/Vol] 25.5 mmol/L Normal 21.0-32.0 [facility] Comment on above: Performed By: #### C MP, BNP ####[facility] [address] [place] [address]Dr. Donna Malone Creatinine [Mass/Vol] 0.92 mg/dL Normal 0.70-1.30 [facility] Comment on above: Performed By: #### C MP, BNP ####[facility] [address] [place] [address]Dr. Donna Malone EGFR-AF RWANDAN >60 Normal >=60 [facility] Comment on above: Performed By: #### C MP, BNP ####[facility] [address] [place] [address]Dr. Donna Faisal EGFR-NON AF RWANDAN >60 Normal >=60 [facility] Comment on above: Performed By: #### C MP, BNP ####[facility] R[address] [place], [place] [address]Dr. Donna Faisal Globulin (S) [Mass/Vol] 3.2 g/dL Normal [facility] Comment on above: Performed By: #### C MP, BNP ####[facility] [address] [place] [address]Dr. Donna Faisal Glucose [Mass/Vol] 76 mg/dL Normal 74-106 [facility] Comment on above: Performed By: #### C MP, BNP ####[facility] [address] [place] [address]Dr. Donna Malone Potassium [Moles/Vol] 3.9 mmol/L Normal 3.5-5.1 [facility] Comment on above: Performed By: #### C MP, BNP ####[facility] [address] [place] [address]Dr. Donna Malone Protein [Mass/Vol] 6.0 g/dL Critically low 6.4-8.2 [facility] Comment on above: Performed By: #### C MP, BNP ####[facility] [address] [place] [address]Dr. Donna Malone Sodium [Moles/Vol] 140 mmol/L Normal 136-145 [facility] Comment on above: Performed By: #### C MP, BNP ####[facility] [address]ir[address] [place] [address]Dr. Donna Malone Urea nitrogen [Mass/Vol] 12.0 mg/dL Normal 7.0-18.0 [facility] Comment on above: Performed By: #### C MP, BNP ####[facility] [address] [place], [place] [address]Dr. Donna Malone Urea nitrogen/Creatinine [Mass ratio] 13.0 mg/mg Normal [facility] Comment on above: Performed By: #### C MP, BNP ####[facility] [address] [place], [place] [address]Dr. Donna Malone VIT B12 AND FOLATEon 022 Cobalamin (Vitamin B12) [Mass/Vol] 532.0 pg/mL Normal 193.0-986. 0 [facility] Comment on above: Performed By: #### B 12FOL ####[facility] [address] [place], [place] [address]Dr. Donna Malone FOLATE 13.60 ng/mL Normal 8.60-58.90 [facility] Comment on above: Performed By: #### B 12FOL ####[facility] [address] [place], [place] [address]Dr. Donna Malone AMMONIAon 07-15-2022 Ammonia (P) [Moles/Vol] 23 umol/L Normal 11-32 [facility] Comment on above: Performed By: #### A MM ####[facility] [address]uz[address] [place], [place] [address]Dr. Donna Malone BLOOD GASES BTYon 07-15-2022 02 MODE ROOM AIR Normal [facility] Comment on above: Performed By: #### A BG ####[facility] [address] [place], [place] [address]Dr. Donna Malone ALLENS TEST Positive Normal [facility] Comment on above: Performed By: #### A BG ####[facility] [address]cos[address] [place], [place] [address]Dr. Donna Malone Base excess Calc (Bld) [Moles/Vol] -1.3000 mmol/L Normal -2.0-2.0 [facility] Comment on above: Performed By: #### A BG ####[facility] [address] [place] [address]Dr. Donna Malone BIPAP PRESSURE Normal [facility] Comment on above: Performed By: #### A BG ####[facility] [address]ch[address] [place] [address]Dr. Donna Malone CPAP [facility] Comment on above: Performed By: #### A BG ####[facility] [address]sp[address] [place], [place] [address]Dr. Donna Malone FIO2 [facility] Comment on above: Performed By: #### A BG ####[facility] [address] [place], [place] [address]Dr. Donna Malone HCO3 (Bld) [Moles/Vol] 22.7 mmol/L Normal 22.0-26.0 [facility] Comment on above: Performed By: #### A BG ####[facility] [address] [place], [place] [address]Dr. Donna Malone LPM [facility] Comment on above: Performed By: #### A BG ####[facility] [address] [place], [place] [address]Dr. Donna Malone MINUTE VOLUME [facility] Comment on above: Performed By: #### A BG ####[facility] [address] [place], [place] [address]Dr. Donna Malone Oxygen (Bld) [Partial pressure] 77.7 mm[Hg] Critically low 80.0-100.0 [facility] Comment on above: Performed By: #### A BG ####[facility] [address] [place], [place] [address]Dr. Donna Malone Oxygen saturation in Blood 95.9 % Normal 95.0-100.0 [facility] Comment on above: Performed By: #### A BG ####[facility] [address]eb[address] [place], [place] [address]Dr. Donna Malone PCO2 33.0 mmHg Critically low 35.0-45.0 [facility] Comment on above: Performed By: #### A BG ####[facility] [address] [place] [address]Dr. Donna Malone PEEP [facility] Comment on above: Performed By: #### A BG ####[facility] [address] [place], [place] [address]Dr. Donna Malone pH (Bld) 7.446 [pH] Normal 7.350-7.45 0 [facility] Comment on above: Performed By: #### A BG ####[facility] [address] [place], [place] [address]Dr. Donna Malone PIP [facility] Comment on above: Performed By: #### A BG ####[facility] [address]bart[address] [place], [place] [address]Dr. Donna Malone PS [facility] Comment on above: Performed By: #### A BG ####[facility] [address] [place], [place] [address]Dr. Donna Malone PUNCTURE SITE RB [facility] Comment on above: Performed By: #### A BG ####[facility] [address] [place], [place] [address]Dr. Donna Malone RATE [facility] Comment on above: Performed By: #### A BG ####[facility] [address]rs[address] [place], [place] [address]Dr. Donna Malone VENT MODE [facility] Comment on above: Performed By: #### A BG ####[facility] [address]kb[address] [place], [place] [address]Dr. Donna Malone VT [facility] Comment on above: Performed By: #### A BG ####[facility] [address] [place], [place] [address]Dr. Donna Malone BNPon 07-15-2022 Natriuretic peptide B (Bld) [Mass/Vol] 111.0 pg/mL Normal <=900.0 [facility] Comment on above: Performed By: #### B CERTIFIED SURGICAL FIRST ASSISTANT, CMP, CMADM ####[facility] [address] [place], [place] [address]Aa. Donna Malone CARDIAC MJ 3-6on 2 CK [Catalytic activity/Vol] 102 U/L Normal 39-308 [facility] Comment on above: Performed By: #### C MREP ####[facility] [address] [place], [place] [address]Yd. Donna Malone CK.MB [Mass/Vol] 3.67 ng/mL Critically high <=3.60 [facility] Comment on above: Performed By: #### C MREP ####[facility] [address] [place] [id number]. Donna Malone HSTROP 13.1 pg/mL Normal 4.0-76.1 [facility] Comment on above: Result Comment: CUT- OFF POINTS HAVE BEEN ESTABLISHED BASED ON THE FOURTH UNIVERSAL DEFINITIONS OF MYOCARDIALINFARCTION. THE UPPER REFERENCE LIMIT (URL) OF TROPONIN, DEFINED THE 99TH PERCENTILE OFcTnI DISTRIBUTION IN A REFERENCE POPULATION, HAS BEEN CONFIRMED THE DECISION THRESHOLDFOR [place] DIAGNOSIS. Performed By: #### C MREP ####[facility] [address] [place] [id number]. Donna Malone CK [Catalytic activity/Vol] 89 U/L Normal 39-308 [facility] Comment on above: Performed By: #### C MREP ####[facility] [address] [place] [id number]. Donna Malone CK.MB [Mass/Vol] 3.37 ng/mL Normal <=3.60 [facility] Comment on above: Performed By: #### C MREP ####[facility] [address] [place] [id number]. Donna Malone HSTROP 11.2 pg/mL Normal 4.0-76.1 [facility] Comment on above: Result Comment: CUT- OFF POINTS HAVE BEEN ESTABLISHED BASED ON THE FOURTH UNIVERSAL DEFINITIONS OF MYOCARDIALINFARCTION. THE UPPER REFERENCE LIMIT (URL) OF TROPONIN, DEFINED THE 99TH PERCENTILE OFcTnI DISTRIBUTION IN A REFERENCE POPULATION, HAS BEEN CONFIRMED THE DECISION THRESHOLDFOR [place] DIAGNOSIS. Performed By: #### C MREP ####[facility] Xqyeqxljhm[address] [place] [id number]. Donna Faisal CARDIAC MJ ADMITon 022 CK [Catalytic activity/Vol] 76 U/L Normal 39-308 [facility] Comment on above: Performed By: #### B CERTIFIED SURGICAL FIRST ASSISTANT, CMP, CMADM ####[facility] Kgj[address]hpxsp[address] [place] [address]Dr. Donna Malone CK.MB [Mass/Vol] 2.59 ng/mL Normal <=3.60 [facility] Comment on above: Performed By: #### B CERTIFIED SURGICAL FIRST ASSISTANT, CMP, CMADM ####[facility] Nxlrfjddsa66[address] [place] [address]Dr. Rubyyvan Malone HSTROP 10.1 pg/mL Normal 4.0-76.1 [facility] Comment on above: Result Comment: CUT- OFF POINTS HAVE BEEN ESTABLISHED BASED ON THE FOURTH UNIVERSAL DEFINITIONS OF MYOCARDIALINFARCTION. THE UPPER REFERENCE LIMIT (URL) OF TROPONIN, DEFINED THE 99TH PERCENTILE OFcTnI DISTRIBUTION IN A REFERENCE POPULATION, HAS BEEN CONFIRMED THE DECISION THRESHOLDFOR WA DIAGNOSIS. Performed By: #### B CERTIFIED SURGICAL FIRST ASSISTANT, CMP, CMADM ####[facility] Jcdoyrnhyt[address] [place] [address]Dr. Donna Malone BINDU 109 ng/mL Critically high 16-96 [facility] Comment on above: Performed By: #### B CERTIFIED SURGICAL FIRST ASSISTANT, CMP, CMADM ####[facility] Ykscfijjgd[address] [place] [address]Dr. Donna Malone CBC AUTO DIFFon 07-15-2022 BASO # 0.0 103/ul Normal 0.0-0.1 [facility] Comment on above: Performed By: #### C BC ####[facility] Vgzpplaprr55[address] [place] [address]Dr. Donna Malone Basophils/100 WBC (Bld) 0.7 % Normal 0.2-2.0 [facility] Comment on above: Performed By: #### C BC ####[facility] Pngdulfogk5[address] [place] [address]Dr. Donna Malone EO # 0.1 103/ul Normal 0.0-0.7 [facility] Comment on above: Performed By: #### C BC ####[facility] Rvplxjpfjb4198 [place] [address]Dr. Donna Faisal Eosinophils/100 WBC (Bld) 2.3 % Normal 0.9-7.0 [facility] Comment on above: Performed By: #### C BC ####[facility] Wujhxljnhq[address] [place], [place] [address]Dr. Donna Malone Erythrocyte distribution width (RBC) [Ratio] 15.2 % Critically high 11.0-15.0 [facility] Comment on above: Performed By: #### C BC ####[facility] Afwtaelgqt[address] [place], [place] [address]Dr. Donna Malone Hematocrit (Bld) [Volume fraction] 34.8 % Critically low 42.0-54.0 [facility] Comment on above: Performed By: #### C BC ####[facility] Jgzpruxvuq[address] [place], [place] [address]Dr. Donna Malone Hemoglobin (Bld) [Mass/Vol] 11.4 g/dL Critically low 14.0-18.0 [facility] Comment on above: Performed By: #### C BC ####[facility] Ylasjvuisa[address] [place], [place] [address]Dr. Donna Malone IG # 0.01 10e3/ul Normal 0.00-0.03 [facility] Comment on above: Performed By: #### C BC ####[facility] Rqnolpktzy15[address] [place], [place] [address]Dr. Donna Malone IG % 0.2 % Normal 0.0-0.5 [facility] Comment on above: Performed By: #### C BC ####[facility] Ghtomvyrrc[address] [place], [place] [address]Dr. Donna Malone LYMPH # 1.6 103/ul Normal 1.2-3.8 [facility] Comment on above: Performed By: #### C BC ####[facility] Sququswoce[address] [place], [place] [address]Dr. Donna Malone Lymphocytes/100 WBC (Bld) 26.4 % Normal 20.5-60.0 [facility] Comment on above: Performed By: #### C BC ####[facility] Qwelujzlph1427 [place] [address]DrElizabeth Malone MANUAL DIFF REQ NO Normal [facility] Comment on above: Performed By: #### C BC ####[facility] Vbffhixydy6[address] [place] [address]Dr. Donna Malone MCH (RBC) [Entitic mass] 30.7 pg Normal 25.9-34.0 [facility] Comment on above: Performed By: #### C BC ####[facility] Qaizhaduji7[address] [place], [place] [address]Dr. Donna Malone MCHC (RBC) [Mass/Vol] 32.8 g/dL Normal 29.9-35.2 [facility] Comment on above: Performed By: #### C BC ####[facility] Vrcdtufwfa20[address] [place], [place] [address]DrElizabeth Malone MCV (RBC) [Entitic vol] 93.8 fL Normal 80.0-94.0 [facility] Comment on above: Performed By: #### C BC ####[facility] Kewxaqpkfb27[address] [place], [place] [address]DrElizabeth Malone MONO # 0.5 103/ul Normal 0.3-0.8 [facility] Comment on above: Performed By: #### C BC ####[facility] Gmmdrmwcwu45[address] [place], [place] [address]DrElizabeth Malone Monocytes/100 WBC (Bld) 7.5 % Normal 1.7-12.0 [facility] Comment on above: Performed By: #### C BC ####[facility] V[address]rylchoj[address] [place], [place] [address]DrElizabeth Malone NEUT # 3.8 103/ul Normal 1.4-6.5 [facility] Comment on above: Performed By: #### C BC ####[facility] Fdkdnrhlbo48[address] [place], [place] [address]DrElizabeth Malone Neutrophils/100 WBC (Bld) 62.9 % Normal 43.0-75.0 [facility] Comment on above: Performed By: #### C BC ####[facility] Ugpanzprzw67[address] [place] [id number]. Donna Malone Platelet mean volume (Bld) [Entitic vol] 11.7 fL Normal 9.5-13.5 [facility] Comment on above: Performed By: #### C BC ####[facility] Tsfvopimpv99[address] [place] [id number]. Donna Malone PLT 220 103/ul Normal 150-450 [facility] Comment on above: Performed By: #### C BC ####[facility] Izmqeafyva68[address] [place] [id number]. Donna Malone RBC 3.71 106/ul Critically low 4.70-6.10 [facility] Comment on above: Performed By: #### C BC ####[facility] Oshmagafwv[address] [place] [id number]. Donna Malone WBC 6.0 103/ul Normal 4.0-11.0 [facility] Comment on above: Performed By: #### C BC ####[facility] Sawesxmfcs[address] [place] [id number]. Donna Faisal CT CSPINE WO CONon 2 CT CSPINE WO CON Normal [facility] CT HEAD WO CONon 07-15-2022 CT HEAD WO CON Normal [facility] CTA NECK WO W CONon 07-15-20 22 CTA NECK WO W CON Normal [facility] CULTURE URINEon 07-15-2022 CULTURE URINE Culture Observations : LIGHT GROWTH OF MIXED SKIN MICHAEL. NO POTENTIAL PATHOGENS SEEN. Normal [facility] Comment on above: Performed By: #### U RCX ####[facility] Fkcuktztuk[address] [place], [place] [address]Dr. Donna Faisal Covid-19 [facility]on SARS-CoV-2 (COVID-19) RNA JOSÉ MIGUEL+probe Ql (Unsp spec) Not detected Normal NOT DETECTED [facility] Comment on above: Result Comment: When [...] for this test is supported by the [place] of [employer] and Human Service's declaration that [...] be used). Performed By: #### C VDTBH ####[facility] Lraonxvkja79[address] [place] [address]Dr. oDnna Maloen DEPAKENE/VALPROICon 07-15-20 22 DEPAKENE 53.6 ug/ml Normal 50.0-100.0 [facility] Comment on above: Performed By: #### V ALP ####[facility] Hxzleflwiy04[address] [place] [address]Dr. Donna Malone DRUG SCREEN RAPID (URINE)on 07-15-2022 AMP Negative Normal NEGATIVE [facility] Comment on above: Performed By: #### D SHARONA, ERUR ####[facility] Btbiwvvkgf48[address] [place] [address]Dr. Donna Mlaone BAR Negative Normal NEGATIVE [facility] Comment on above: Performed By: #### D SHARONA, ERUR ####[facility] Nsaeeeqbfi4[address] [place] [id number]. Donna Malone BUP Negative Normal NEGATIVE [facility] Comment on above: Performed By: #### D SHARONA, ERUR ####[facility] Khiq[address]zmho16[address] [place] [id number]. Donna Malone BZO Positive Abnormal NEGATIVE [facility] Comment on above: Performed By: #### D SHARONA, ERUR ####[facility] Mhwihowawz5[address] [place] [id number]. Donna Malone EVONNE Negative Normal NEGATIVE [facility] Comment on above: Performed By: #### Calvin TABOR ERUR ####[facility] Hxviabgqae[address] [place], [place] [address]Dr. Donna Malone CUT-OFFS SEE BELOW Normal [facility] Comment on above: Result Comment: AMP (Amphetamine): 500ng/mL, BAR (Barbituates): 200 ng/mL, BZO (Benzodiazepines): 150 ng/mL, BUP (Buprenorphine): 10 ng/mL, EVONNE (Cocaine): 150 ng/mL, mAMP (Methamphetamine): 500 ng/mL, MTD (Methadone): 200 ng/mL, OPI (Opiates): 100 ng/mL, OXY (Oxycodone): 100 ng/mL, PCP (Phencyclidine): 25 ng/mL, PPX (Propoxyphene): 300 ng/mL, THC (Cannabinoids): 50 ng/mL, TCA (Trycyclic Antidepressants): 300 ng/mL Performed By: #### Calvin TABOR ERUR ####[facility] Wezicekanf[address] [place], [place] [address]Dr. Donna Malone DRUG CUT HEADER DRUG CLASS TEST SYST EM CUT-OFF CONCENTRATIONS ARE FOLLOWS: Normal [facility] Comment on above: Performed By: #### Calvin TABOR ERUR ####[facility] Asnoaydjuq[address] [place], [place] [address]Dr. Donna Malone mAMP Negative Normal NEGATIVE [facility] Comment on above: Performed By: #### Calvin TABOR, ERUR ####[facility] [address] [place], [place] [id number]. Donna Malone MTD Negative Normal NEGATIVE [facility] Comment on above: Performed By: #### Calvin TABOR ERUR ####[facility] Xvukzegulw[address] [place], [place] [address]Dr. Donna Malone OPI Negative Normal NEGATIVE [facility] Comment on above: Performed By: #### Calvin TABOR ERUR ####[facility] Vpphrrlama[address] [place], [place] [id number]. Donna Malone OXY Negative Normal NEGATIVE [facility] Comment on above: Performed By: #### Calvin TABOR, ERUR ####[facility] Nuilrtiiia69[address] [place] [address]Dr. Rubyyvan Malone PCP Negative Normal NEGATIVE [facility] Comment on above: Performed By: #### Calvin TABOR, ERUR ####[facility] Douhlvtxbh8[address] [place] [address]Dr. Rubyyvan Malone PPX Negative Normal NEGATIVE [facility] Comment on above: Performed By: #### Calvin TABOR, ERUR ####[facility] Rfemmbzorl[address] [place], [place] [address]Dr. Rubyyvan Malone TCA Positive Abnormal NEGATIVE [facility] Comment on above: Performed By: #### Calvin TABOR, ERUR ####[facility] Wuncsjsonp13[address] [place], [place] [address]Dr. Donna Malone THC Negative Normal NEGATIVE [facility] Comment on above: Performed By: #### Calvin TABOR, ERUR ####[facility] Knxlzhvjem16[address] [place], [place] [address]Dr. Donna Malone ER URINE PROFILEon 2 Bilirubin Ql (U) Negative Normal NEGATIVE [facility] Comment on above: Performed By: #### Calvin TABOR, ERUR ####[facility] Cyxxerulzn213[address] [place], [place] [address]Dr. Donna Malone Clarity (U) CLEAR Normal CLEAR [facility] Comment on above: Performed By: #### Calvin TABOR, ERUR ####[facility] Rwwwrekobq7[address] [place], [place] [address]Dr. Donna Malone Color (U) YELLOW Normal YELLOW [facility] Comment on above: Performed By: #### Calvin ATBOR, ERUR ####[facility] Cpoalaaypr[address] [place], [place] [address]Dr. Donna Malone ERUAHD A micrscopic examina tion will be performed if indicated. Normal [facility] Comment on above: Performed By: #### Calvin TABOR, ERUR ####[facility] Emleikqapg[address] [place], [place] [address]Dr. Donna Malone Glucose Ql (U) Negative Normal NEGATIVE [facility] Comment on above: Performed By: #### Calvin TABOR, ERUR ####[facility] Ravwrituss20[address] [place], [place] [address]Dr. Donna Malone Hemoglobin Ql (U) Negative Normal NEGATIVE [facility] Comment on above: Performed By: #### Calvin TABOR, ERUR ####[facility] Gaifgwajkl[address] [place], [place] [address]Dr. Donna Malone Ketones Ql (U) 15 mg/dl Abnormal NEGATIVE [facility] Comment on above: Performed By: #### WESLY LAUR ####[facility] Fwtxkbphul9[address] [place], [place] [address]Dr. Donna Malone LEUKOCYTES Negative Normal NEGATIVE [facility] Comment on above: Performed By: #### Calvin TABOR ERUR ####[facility] Uacuotlhvt[address] [place], [place] [address]Dr. Donna Malone Nitrite Ql (U) Negative Normal NEGATIVE [facility] Comment on above: Performed By: #### WESLY LAUR ####[facility] Nfyalkbzxw[address] [place], [place] [address]Dr. Donna Malone pH (U) 6.0 [pH] Normal 5-9 [facility] Comment on above: Performed By: #### Calvin TABOR ERUR ####[facility] Hctxaihytz8[address] [place], [place] [address]Dr. Donna Malone SPEC GRAVITY >=1.030 Abnormal 1.005-<=1. 025 [facility] Comment on above: Performed By: #### Calvin TABOR ERUR ####[facility] Yxyjxxkdvn[address] [place], [place] [address]Dr. Donna Malone UA PROTEIN TRACE Normal NEGATIVE/ TRACE [facility] Comment on above: Performed By: #### Calvin TABOR, ERUR ####[facility] Zetwaxgxmy[address] [place], [place] [address]Dr. Donna Malone UR MICRO IND NOT INDICATED Normal [facility] Comment on above: Performed By: #### D SHARONA, ERUR ####[facility] Fhcvtbloyb2352 [place] [address]Dr. Rubyyvan Malone Urobilinogen Qn (U) 0.2 {Jermain'U}/dL Normal 0.2 - 1. 0 [facility] Comment on above: Performed By: #### D SHARONA, ERUR ####[facility] Reaqvlfmiq66[address] [place] [address]Dr. Rubyyvan Malone ETHANOL (BLD ALC)on 07-15-20 22 ALC NOTE NOTE: 80 mg/dl is th legal limit for a blood alcohol level Normal [facility] Comment on above: Performed By: #### E TH ####[facility] Eirtyzqmbs[address] [place], [place] [address]Dr. Donna Malone Ethanol [Mass/Vol] mg/dL Normal [facility] Comment on above: Performed By: #### E TH ####[facility] Banxmffvdw68[address] [place], [place] [address]Dr. Donna Malone LACTATE/LACTIC ACIDon 2021 Lactate [Moles/Vol] 1.3 mmol/L Normal 0.4-1.9 [facility] Comment on above: Performed By: #### L ACT ####[facility] Lrnywlvtxc[address] [place], [place] [address]Dr. Donna Malone PROF 14(COMP METB)on 022 Albumin [Mass/Vol] 2.9 g/dL Critically low 3.4-5.0 [facility] Comment on above: Performed By: #### B CERTIFIED SURGICAL FIRST ASSISTANT, CMP, CMADM ####[facility] Jagkvjkbrj87[address] [place], [place] [address]Dr. Donna Malone Albumin/Globulin [Mass ratio] 0.9 {ratio} Normal [facility] Comment on above: Performed By: #### B CERTIFIED SURGICAL FIRST ASSISTANT, CMP, CMADM ####[facility] Ducjktdrkz[address] [place], [place] [address]Dr. Donna Malone ALP [Catalytic activity/Vol] 37 U/L Critically low 46-116 [facility] Comment on above: Performed By: #### B CERTIFIED SURGICAL FIRST ASSISTANT, CMP, CMADM ####[facility] Zxwcbtqrum3138 [place] [address]Dr. Rubyyvan Malone ALT [Catalytic activity/Vol] 10 U/L Critically low 16-63 [facility] Comment on above: Performed By: #### B CERTIFIED SURGICAL FIRST ASSISTANT, CMP, CMADM ####[facility] Iazjzijzut[address] [place] [address]Dr. Donna Malone Anion gap [Moles/Vol] 8.0 mmol/L Normal [facility] Comment on above: Performed By: #### B CERTIFIED SURGICAL FIRST ASSISTANT, CMP, CMADM ####[facility] Mykfhxrqbj8930 [place] [address]Dr. Rubyyvan Malone AST [Catalytic activity/Vol] 12 U/L Critically low 15-37 [facility] Comment on above: Performed By: #### B CERTIFIED SURGICAL FIRST ASSISTANT, CMP, CMADM ####[facility] Hxszhqlhvr[address] [place], [place] [address]Dr. Donna Malone Bilirubin [Mass/Vol] 0.3 mg/dL Normal 0.2-1.0 [facility] Comment on above: Performed By: #### B CERTIFIED SURGICAL FIRST ASSISTANT, CMP, CMADM ####[facility] Uahvptcdmt6[address] [place], [place] [address]Dr. Donna Malone Calcium [Mass/Vol] 7.9 mg/dL Critically low 8.5-10.1 [facility] Comment on above: Performed By: #### B CERTIFIED SURGICAL FIRST ASSISTANT, CMP, CMADM ####[facility] Xkjjlatecr2883 [place] [address]Dr. Donna Malone Chloride [Moles/Vol] 107 mmol/L Normal 98-107 [facility] Comment on above: Performed By: #### B CERTIFIED SURGICAL FIRST ASSISTANT, CMP, CMADM ####[facility] Tqnvoppahl[address] [place], [place] [address]Dr. Donna Malone CO2 [Moles/Vol] 27.1 mmol/L Normal 21.0-32.0 [facility] Comment on above: Performed By: #### B CERTIFIED SURGICAL FIRST ASSISTANT, CMP, CMADM ####[facility] Kszmsrxkfy04[address] [place], [place] [address]Dr. Donna Malone Creatinine [Mass/Vol] 0.99 mg/dL Normal 0.70-1.30 [facility] Comment on above: Performed By: #### B CERTIFIED SURGICAL FIRST ASSISTANT, CMP, CMADM ####[facility] Mpkfjzsrwc7[address] [place] [address]Dr. Donna Malone EGFR-AF RWANDAN >60 Normal >=60 [facility] Comment on above: Performed By: #### B CERTIFIED SURGICAL FIRST ASSISTANT, CMP, CMADM ####[facility] Trqahgijfb4331 [place] [address]Dr. Donna Malone EGFR-NON AF RWANDAN >60 Normal >=60 [facility] Comment on above: Performed By: #### B CERTIFIED SURGICAL FIRST ASSISTANT, CMP, CMADM ####[facility] Qdsssgijij7476 [place] [address]Dr. Donna Malone Globulin (S) [Mass/Vol] 3.3 g/dL Normal [facility] Comment on above: Performed By: #### B CERTIFIED SURGICAL FIRST ASSISTANT, CMP, CMADM ####[facility] Kxyysqtufh9382 [place] [address]Dr. Donna Malone Glucose [Mass/Vol] 101 mg/dL Normal 74-106 [facility] Comment on above: Performed By: #### B CERTIFIED SURGICAL FIRST ASSISTANT, CMP, CMADM ####[facility] Lxvdckilow4[address] [place] [address]Dr. Donna Malone Potassium [Moles/Vol] 4.1 mmol/L Normal 3.5-5.1 [facility] Comment on above: Performed By: #### B CERTIFIED SURGICAL FIRST ASSISTANT, CMP, CMADM ####[facility] Arejwunplv7687 [place] [address]Dr. Donna Malone Protein [Mass/Vol] 6.2 g/dL Critically low 6.4-8.2 [facility] Comment on above: Performed By: #### B CERTIFIED SURGICAL FIRST ASSISTANT, CMP, CMADM ####[facility] Rvbjliztxk2902 [place] [address]Dr. Donna Malone Sodium [Moles/Vol] 138 mmol/L Normal 136-145 [facility] Comment on above: Performed By: #### B CERTIFIED SURGICAL FIRST ASSISTANT, CMP, CMADM ####[facility] Akyjjfwpmy4225 [place] [id number]. Donna Malone Urea nitrogen [Mass/Vol] 16.0 mg/dL Normal 7.0-18.0 [facility] Comment on above: Performed By: #### B CERTIFIED SURGICAL FIRST ASSISTANT, CMP, CMADM ####[facility] Ieccuqynky6176 [place] [id number]. Donna Malone Urea nitrogen/Creatinine [Mass ratio] 16.2 mg/mg Normal [facility] Comment on above: Performed By: #### B CERTIFIED SURGICAL FIRST ASSISTANT, CMP, CMADM ####[facility] Eghdklgyhf5[address] [place] [address]Dr. Donna Malone PROTIMEon 07-15-2022 INR Coag (PPP) [Relative time] 1.06 {INR} Normal [facility] Comment on above: Performed By: #### P T, PTT ####[facility] Bjeovlqxhi[address] [place], [place] [address]Dr. Donna Malone INR GUIDELINES SEE BELOW Normal [facility] Comment on above: Result Comment: FLORESITA RED INR: 2.0 - 3.0 CONDITIONS NOT LISTED BELOW 2.5 - 3.5 FOR PROSTHETIC HEART VALVE REPLACEMENT 2.5 - 3.5 RECURRENT THROMBOSIS Performed By: #### P T, PTT ####[facility] Fefmzzifgm[address] [place], [place] [address]Dr. Donna Malone PT Coag (PPP) [Time] 11.4 s Normal 9.0-11.6 [facility] Comment on above: Performed By: #### P T, PTT ####[facility] Tknjjaakah[address] [place], [place] [address]Dr. Donna Malone PTTon 07-15-2022 aPTT Coag (Bld) [Time] 30.8 s Normal 22.3-36.2 [facility] Comment on above: Performed By: #### P T, PTT ####[facility] Frzfvgussa[address] [place], [place] [address]Dr. Donna Malone XR CHEST 1 Von 07-15-2022 XR CHEST 1 V Normal [facility] CULTURE URINEon 06-24-2022 CULTURE URINE Normal [facility] Comment on above: Performed By: #### U RCX ####[facility] Mttskoxxvv[address] [place], [place] [address]Dr. Donna Malnoe UA RANDOM W/MICROSCOPICon BACTERIA NONE SEEN Normal NONE SEEN [facility] Comment on above: Performed By: #### U AMIC ####[facility] Vqzgkfgrbo[address] [place], [place] [address]Dr. Donna Malone Bilirubin Ql (U) Negative Normal NEGATIVE [facility] Comment on above: Performed By: #### U AMIC ####[facility] Omvufbllzd[address] [place], [place] [address]Dr. Donna Malone CAST NONE SEEN Normal NONE SEEN [facility] Comment on above: Performed By: #### U AMIC ####[facility] Oohsdnyxyu[address] [place], [place] [address]Dr. Donna Malone Clarity (U) CLEAR Normal CLEAR [facility] Comment on above: Performed By: #### U AMIC ####[facility] Pmvvaxayns[address] [place], [place] [address]Dr. Donna Malone Color (U) DK. YELLOW Normal YELLOW [facility] Comment on above: Performed By: #### U AMIC ####[facility] Lutkzsljiv[address] [place], [place] [address]Dr. Donna Malone Crystals LM Nom (Urine sed) NONE SEEN Normal NONE SEEN [facility] Comment on above: Performed By: #### U AMIC ####[facility] Wxfafxpgcf98[address] [place], [place] [address]Dr. Donna Malone Epithelial cells LM Ql (Urine sed) NONE SEEN Normal NONE SEEN /RARE [facility] Comment on above: Performed By: #### U AMIC ####[facility] Yaxfzoxphp82[address] [place], [place] [address]Dr. Donna Malone Glucose Ql (U) 100 mg/dl Abnormal NEGATIVE [facility] Comment on above: Performed By: #### U AMIC ####[facility] Yigvcgwcdw[address] [place], [place] [address]Dr. Donna Malone Hemoglobin Ql (U) Negative Normal NEGATIVE [facility] Comment on above: Performed By: #### U AMIC ####[facility] Gzhcowlfku16[address] [place] [address]Dr. Rubyyvan Malone Ketones Ql (U) TRACE Abnormal NEGATIVE [facility] Comment on above: Performed By: #### U AMIC ####[facility] Yjntkssffx5250 [place] [address]Dr. Donna Malone LEUKOCYTES Negative Normal NEGATIVE [facility] Comment on above: Performed By: #### U AMIC ####[facility] Vyhvtmacuj88[address] [place] [address]Dr. Donna Malone MUCOUS SMALL Abnormal NONE SEEN [facility] Comment on above: Performed By: #### U AMIC ####[facility] Puqvyidkii[address] [place], [place] [address]Dr. Donna Malone Nitrite Ql (U) Negative Normal NEGATIVE [facility] Comment on above: Performed By: #### U AMIC ####[facility] Urodhgagjx[address] [place], [place] [address]Dr. Donna Malone pH (U) 6.0 [pH] Normal 5-9 [facility] Comment on above: Performed By: #### U AMIC ####[facility] Iposggzzlo55[address] [place], [place] [address]Dr. Donna Malone RBC NONE SEEN Abnormal 0-2 [facility] Comment on above: Performed By: #### U AMIC ####[facility] Psifkrjtau15[address] [place], [place] [address]Dr. Donna Malone SPEC GRAVITY 1.030 Abnormal 1.005-<=1. 025 [facility] Comment on above: Performed By: #### U AMIC ####[facility] Tswkhkctmz[address] [place], [place] [address]Dr. Donna Malone UA PROTEIN Negative Normal NEGATIVE/ TRACE The [facility] Comment on above: Performed By: #### U AMIC ####[facility] Ddaiteulwz[address] [place], [place] [address]Dr. Donna Malone Urobilinogen Qn (U) 0.2 {Jermain'U}/dL Normal 0.2 - 1. 0 [facility] Comment on above: Performed By: #### U AMIC ####[facility] Cycqfwdajv9880 [place], [place] [address]As. Donna Malone WBC 2-5 Abnormal NONE SEEN [facility] Comment on above: Performed By: #### U AMIC ####[facility] Oshotrokka[address] [place], [place] [address]El. Donna Malone COMPLIANCE DRUG SCREENon PDF . Normal [facility] Comment on above: Performed By: #### D SDOALC ####[facility] Bdilkrcrjh6758 [place], [place] [address]Wz. Donna Malone Summary FINAL Normal [facility] Comment on above: Result Comment: =====TOXASSURE COMP [...] please call . Performed By: #### D [facility] ####[facility] Dtaauqdmcj38[address] [place] [id number]. Donna Malone CBC AUTO DIFFon 05-16-2022 BASO # 0.0 103/ul Normal 0.0-0.1 [facility] Comment on above: Performed By: #### C BC ####[facility] Eek[address]axkb[address] [place], [place] [address]Dr. Rubyyvan Malone Basophils/100 WBC (Bld) 0.4 % Normal 0.2-2.0 [facility] Comment on above: Performed By: #### C BC ####[facility] Vbtdvqeov[address] [place], [place] [address]Dr. Rubyyvan Malone EO # 0.1 103/ul Normal 0.0-0.7 [facility] Comment on above: Performed By: #### C BC ####[facility] Kplhigeesa[address] [place], [place] [address]Dr. Donna Malone Eosinophils/100 WBC (Bld) 0.9 % Normal 0.9-7.0 [facility] Comment on above: Performed By: #### C BC ####[facility] Waclclawfw[address] [place], [place] [address]Dr. Rubyyvan Malone Erythrocyte distribution width (RBC) [Ratio] 14.9 % Normal 11.0-15.0 [facility] Comment on above: Performed By: #### C BC ####[facility] Qkpjdxaima[address] [place], [place] [address]Dr. Rubyyvan Malone Hematocrit (Bld) [Volume fraction] 41.0 % Critically low 42.0-54.0 [facility] Comment on above: Performed By: #### C BC ####[facility] Ykplqpktsg[address] [place], [place] [address]Dr. Donna Malone Hemoglobin (Bld) [Mass/Vol] 13.3 g/dL Critically low 14.0-18.0 [facility] Comment on above: Performed By: #### C BC ####[facility] Kpdszvxevn[address] [place], [place] [address]Dr. Donna Malone IG # 0.03 10e3/ul Normal 0.00-0.03 [facility] Comment on above: Performed By: #### C BC ####[facility] Aouqtcdmzs5[address] [place] [address]Dr. Donna Malone IG % 0.3 % Normal 0.0-0.5 [facility] Comment on above: Performed By: #### C BC ####[facility] Fchcfaprdz1245 [place] [address]Dr. Donna Malone LYMPH # 1.4 103/ul Normal 1.2-3.8 [facility] Comment on above: Performed By: #### C BC ####[facility] Aozyidqyrr4337 [place] [address]Dr. Donna Faisal Lymphocytes/100 WBC (Bld) 15.3 % Critically low 20.5-60.0 [facility] Comment on above: Performed By: #### C BC ####[facility] Cwtflefrft[address] [place] [address]Dr. Rubyyvan Malone MANUAL DIFF REQ NO Normal [facility] Comment on above: Performed By: #### C BC ####[facility] K[address]olqexcl[address] [place], [place] [address]Dr. Donna Malone MCH (RBC) [Entitic mass] 29.4 pg Normal 25.9-34.0 [facility] Comment on above: Performed By: #### C BC ####[facility] Ydzmlwhwcd5984 [place] [address]Dr. Donna Malone MCHC (RBC) [Mass/Vol] 32.4 g/dL Normal 29.9-35.2 [facility] Comment on above: Performed By: #### C BC ####[facility] Njpafkpiqr9444 [place] [address]Dr. Donna Malone MCV (RBC) [Entitic vol] 90.5 fL Normal 80.0-94.0 [facility] Comment on above: Performed By: #### C BC ####[facility] Rdxtiivccf[address] [place], [place] [address]Dr. Donna Faisal MONO # 0.8 103/ul Normal 0.3-0.8 [facility] Comment on above: Performed By: #### C BC ####[facility] Lsgbwtijnt3100 [place] [address]Dr. Donna Malone Monocytes/100 WBC (Bld) 8.7 % Normal 1.7-12.0 [facility] Comment on above: Performed By: #### C BC ####[facility] Wbtsgfglwi9719 [place] [address]Dr. Donna Malone NEUT # 6.9 103/ul Critically high 1.4-6.5 [facility] Comment on above: Performed By: #### C BC ####[facility] Djeptzglaa7107 [place] [address]Dr. Donna Malone Neutrophils/100 WBC (Bld) 74.4 % Normal 43.0-75.0 [facility] Comment on above: Performed By: #### C BC ####[facility] Bvxedmjkui0914 [place] [address]Dr. Donna Malone Platelet mean volume (Bld) [Entitic vol] 11.9 fL Normal 9.5-13.5 [facility] Comment on above: Performed By: #### C BC ####[facility] Xibupamdhk45[address] [place] [address]Dr. Donna Malone PLT 174 103/ul Normal 150-450 [facility] Comment on above: Performed By: #### C BC ####[facility] Lerjbpnflm5807 [place] [address]Dr. Donna Malone RBC 4.53 106/ul Critically low 4.70-6.10 [facility] Comment on above: Performed By: #### C BC ####[facility] Snrfxglvjp3954 [place] [address]Dr. Donna Malone WBC 9.2 103/ul Normal 4.0-11.0 [facility] Comment on above: Performed By: #### C BC ####[facility] Xagplbqlvh35[address] [place] [address]Dr. Donna Malone PROF 14(COMP METB)on 022 Albumin [Mass/Vol] 3.0 g/dL Critically low 3.4-5.0 [facility] Comment on above: Performed By: #### C MP ####[facility] Sfrlgufwjy2620 [place] [address]Dr. Donna Malone Albumin/Globulin [Mass ratio] 0.8 {ratio} Normal [facility] Comment on above: Performed By: #### C MP ####[facility] Mrfaerupln4092 [place] [address]Dr. Donna Malone ALP [Catalytic activity/Vol] 39 U/L Critically low 46-116 [facility] Comment on above: Performed By: #### C MP ####[facility] Qwmndgaqch3075 [place] [address]Dr. Donna Malone ALT [Catalytic activity/Vol] 16 U/L Normal 16-63 [facility] Comment on above: Performed By: #### C MP ####[facility] Sinejzktqb[address] [place], [place] [address]Dr. Donna Malone Anion gap [Moles/Vol] 10.8 mmol/L Normal [facility] Comment on above: Performed By: #### C MP ####[facility] Xottrghvkp3[address] [place], [place] [address]Dr. Donna Malone AST [Catalytic activity/Vol] 9 U/L Critically low 15-37 [facility] Comment on above: Performed By: #### C MP ####[facility] Xjgapbgptb9[address] [place], [place] [address]Dr. Donna Malone Bilirubin [Mass/Vol] 0.3 mg/dL Normal 0.2-1.0 [facility] Comment on above: Performed By: #### C MP ####[facility] Vgtkozhiiv[address] [place], [place] [address]Dr. Donna Malone Calcium [Mass/Vol] 8.8 mg/dL Normal 8.5-10.1 [facility] Comment on above: Performed By: #### C MP ####[facility] Vbdjujqgsv6[address] [place], [place] [address]Dr. Donna Malone Chloride [Moles/Vol] 105 mmol/L Normal 98-107 [facility] Comment on above: Performed By: #### C MP ####[facility] Gwaesithbp46[address] [place] [address]Dr. Donna Malone CO2 [Moles/Vol] 26.7 mmol/L Normal 21.0-32.0 [facility] Comment on above: Performed By: #### C MP ####[facility] Xapxtuyguo5348 [place] [address]Dr. Donna Malone Creatinine [Mass/Vol] 0.97 mg/dL Normal 0.70-1.30 [facility] Comment on above: Performed By: #### C MP ####[facility] Ympcldldle65[address] [place] [address]Dr. Donna Malone EGFR-AF RWANDAN >60 Normal >=60 [facility] Comment on above: Performed By: #### C MP ####[facility] Yfnonrqkoc4196 [place] [address]Dr. Donna Malone EGFR-NON AF RWANDAN >60 Normal >=60 [facility] Comment on above: Performed By: #### C MP ####[facility] Hyrhwlpmjx7726 [place] [address]Dr. Donna Malone Globulin (S) [Mass/Vol] 3.7 g/dL Normal [facility] Comment on above: Performed By: #### C MP ####[facility] Axnwmebsmy9764[address] [place], [place] [address]Dr. Donna Malone Glucose [Mass/Vol] 98 mg/dL Normal 74-106 [facility] Comment on above: Performed By: #### C MP ####[facility] Ljmmvgzepz7039 [place] [address]Dr. Donna Malone Potassium [Moles/Vol] 3.5 mmol/L Normal 3.5-5.1 [facility] Comment on above: Performed By: #### C MP ####[facility] [address]qrqyk[address] [place], [place] [address]Dr. Donna Malone Protein [Mass/Vol] 6.7 g/dL Normal 6.4-8.2 [facility] Comment on above: Performed By: #### C MP ####[facility] Adzistxneg[address] [place], [place] [address]Dr. Donna Malone Sodium [Moles/Vol] 139 mmol/L Normal 136-145 [facility] Comment on above: Performed By: #### C MP ####[facility] Uwpgqlyhqh9[address] [place], [place] [address]Dr. Donna Malone Urea nitrogen [Mass/Vol] 11.0 mg/dL Normal 7.0-18.0 [facility] Comment on above: Performed By: #### C MP ####[facility] Uthjiacfwz[address] [place], [place] [address]Dr. Donna Faisal Urea nitrogen/Creatinine [Mass ratio] 11.3 mg/mg Normal [facility] Comment on above: Performed By: #### C MP ####[facility] Aqqqpayvym[address] [place], [place] [address]Dr. Donna Faisal T3, TOTAL (TRIIODOTHYRONINE) on 05-16-2022 T3, TOTAL 86 ng/dL Normal 71-180 [facility] Comment on above: Performed By: #### T 3TOTAL ####[facility] Bobrgxfhwa[address] [place], [place] [address]Dr. Donna Faisal T4 LABCORPon 05-16-2022 T4 [Mass/Vol] 6.4 ug/dL Normal 4.5-12.0 [facility] Comment on above: Performed By: #### T 4LC ####[facility] Qlsgvfmvap[address] [place], [place] [address]Dr. Donna Faisal CBC AUTO DIFFon 05-15-2022 BASO # 0.0 103/ul Normal 0.0-0.1 [facility] Comment on above: Performed By: #### C BC ####[facility] Mgzgaltqsp[address] [place], [place] [address]Dr. Rubyyvan Malone Basophils/100 WBC (Bld) 0.3 % Normal 0.2-2.0 [facility] Comment on above: Performed By: #### C BC ####[facility] Augvpimblo39[address] [place], [place] [address]Dr. Donna Malone EO # 0.2 103/ul Normal 0.0-0.7 [facility] Comment on above: Performed By: #### C BC ####[facility] Pwzdbdjkzc3854 [place] [address]Dr. Donna Malone Eosinophils/100 WBC (Bld) 2.0 % Normal 0.9-7.0 [facility] Comment on above: Performed By: #### C BC ####[facility] Rqxobiobnl8979 [place] [address]Dr. Donna Malone Erythrocyte distribution width (RBC) [Ratio] 14.6 % Normal 11.0-15.0 [facility] Comment on above: Performed By: #### C BC ####[facility] Kodmlihdet[address] [place], [place] [address]Dr. Donna Malone Hematocrit (Bld) [Volume fraction] 38.2 % Critically low 42.0-54.0 [facility] Comment on above: Performed By: #### C BC ####[facility] Riflgcuwvy8[address] [place], [place] [address]Dr. Donna Malone Hemoglobin (Bld) [Mass/Vol] 12.7 g/dL Critically low 14.0-18.0 [facility] Comment on above: Performed By: #### C BC ####[facility] Dsktadvagu[address] [place], [place] [address]Dr. Donna Malone IG # 0.04 10e3/ul Critically high 0.00-0.03 [facility] Comment on above: Performed By: #### C BC ####[facility] Fivjitnddk8[address] [place], [place] [address]Dr. Donna Mlaone IG % 0.4 % Normal 0.0-0.5 [facility] Comment on above: Performed By: #### C BC ####[facility] Syvgrodsrb55[address] [place], [place] [address]Dr. Donna Malone LYMPH # 1.4 103/ul Normal 1.2-3.8 [facility] Comment on above: Performed By: #### C BC ####[facility] Pvhdwgqore10[address] [place], [place] [address]Dr. Donna Malone Lymphocytes/100 WBC (Bld) 14.9 % Critically low 20.5-60.0 [facility] Comment on above: Performed By: #### C BC ####[facility] Ownawpwucd1206 [place] [address]Dr. Donna Malone MANUAL DIFF REQ NO Normal [facility] Comment on above: Performed By: #### C BC ####[facility] Nknhhkdyup5412 [place] [id number]. Donna Malone MCH (RBC) [Entitic mass] 30.0 pg Normal 25.9-34.0 [facility] Comment on above: Performed By: #### C BC ####[facility] Nnzsgkywmk1851 [place] [address]Dr. Donna Malone MCHC (RBC) [Mass/Vol] 33.2 g/dL Normal 29.9-35.2 [facility] Comment on above: Performed By: #### C BC ####[facility] Vwfqecshfy18[address] [place], [place] [address]Dr. Donna Malone MCV (RBC) [Entitic vol] 90.3 fL Normal 80.0-94.0 [facility] Comment on above: Performed By: #### C BC ####[facility] Ywglxerjvn64[address] [place], [place] [address]DrElizabeth Malone MONO # 0.8 103/ul Normal 0.3-0.8 [facility] Comment on above: Performed By: #### C BC ####[facility] Ssulnhojfb32[address] [place], [place] [address]Dr. Donna Malone Monocytes/100 WBC (Bld) 8.5 % Normal 1.7-12.0 [facility] Comment on above: Performed By: #### C BC ####[facility] Wjsgpxlleb5[address] [place], [place] [address]DrElizabeth Malone NEUT # 6.8 103/ul Critically high 1.4-6.5 [facility] Comment on above: Performed By: #### C BC ####[facility] Iwnysppbgm12[address] [place], [place] [address]Dr. Donna Malone Neutrophils/100 WBC (Bld) 73.9 % Normal 43.0-75.0 [facility] Comment on above: Performed By: #### C BC ####[facility] Jqdreggtsc4688 [place] [address]Dr. Donna Malone Platelet mean volume (Bld) [Entitic vol] 12.0 fL Normal 9.5-13.5 [facility] Comment on above: Performed By: #### C BC ####[facility] Xbonghqxdh0810 [place] [address]Dr. Donna Malone PLT 154 103/ul Normal 150-450 [facility] Comment on above: Performed By: #### C BC ####[facility] Yvsiqlebvn7540 [place] [address]Dr. Donna Malone RBC 4.23 106/ul Critically low 4.70-6.10 [facility] Comment on above: Performed By: #### C BC ####[facility] Mxmlkxbduz2193 [place] [address]Dr. Donna Malone WBC 9.2 103/ul Normal 4.0-11.0 [facility] Comment on above: Performed By: #### C BC ####[facility] Pzulloskyf8920 [place] [address]DrElizabeth Malone PROF 14(COMP METB)on 022 Albumin [Mass/Vol] 2.9 g/dL Critically low 3.4-5.0 [facility] Comment on above: Performed By: #### C MP ####[facility] Dsjguhradd9209 [place] [address]DrElizabeth Malone Albumin/Globulin [Mass ratio] 0.9 {ratio} Normal [facility] Comment on above: Performed By: #### C MP ####[facility] Kluqzhlaal4474 [place] [address]DrElizabeth Malone ALP [Catalytic activity/Vol] 41 U/L Critically low 46-116 [facility] Comment on above: Performed By: #### C MP ####[facility] Ogprquxgqt2272 [place] [address]DrElizabeth Malone ALT [Catalytic activity/Vol] 12 U/L Critically low 16-63 [facility] Comment on above: Performed By: #### C MP ####[facility] Wqncbprvfm4040 [place] [address]Dr. Donna Malone Anion gap [Moles/Vol] 5.6 mmol/L Normal [facility] Comment on above: Performed By: #### C MP ####[facility] Gdtmmwlzzc38[address] [place], [place] [address]Dr. Donna Malone AST [Catalytic activity/Vol] 8 U/L Critically low 15-37 [facility] Comment on above: Performed By: #### C MP ####[facility] Cbsfwyqamc[address] [place], [place] [address]Dr. Donna Malone Bilirubin [Mass/Vol] 0.5 mg/dL Normal 0.2-1.0 [facility] Comment on above: Performed By: #### C MP ####[facility] Cscqmsxlhh20[address] [place], [place] [address]Dr. Donna Malone Calcium [Mass/Vol] 8.3 mg/dL Critically low 8.5-10.1 [facility] Comment on above: Performed By: #### C MP ####[facility] Pptisjdgoq0867[address] [place], [place] [address]Dr. Donna Faisal Chloride [Moles/Vol] 106 mmol/L Normal 98-107 [facility] Comment on above: Performed By: #### C MP ####[facility] Eweorsyiki64[address] [place], [place] [address]Dr. Donna Malone CO2 [Moles/Vol] 23.1 mmol/L Normal 21.0-32.0 [facility] Comment on above: Performed By: #### C MP ####[facility] Vxndbfwali9034[address] [place], [place] [address]Dr. Donna Malone Creatinine [Mass/Vol] 0.82 mg/dL Normal 0.70-1.30 [facility] Comment on above: Performed By: #### C MP ####[facility] Lbzqhqbdve4[address] [place], [place] [address]Dr. Rubyyvan Faisal EGFR-AF RWANDAN >60 Normal >=60 [facility] Comment on above: Performed By: #### C MP ####[facility] Woesyiuhwa3611 [place] [address]Dr. Donna Malone EGFR-NON AF RWANDAN >60 Normal >=60 [facility] Comment on above: Performed By: #### C MP ####[facility] Qareiptwni7289 [place] [address]Dr. Donna Malone Globulin (S) [Mass/Vol] 3.2 g/dL Normal [facility] Comment on above: Performed By: #### C MP ####[facility] Uesfqolqcs7627 [place] [address]Dr. Donna Malone Glucose [Mass/Vol] 81 mg/dL Normal 74-106 [facility] Comment on above: Performed By: #### C MP ####[facility] Cfngunqpfm9808 [place] [address]Dr. Donna Malone Potassium [Moles/Vol] 3.7 mmol/L Normal 3.5-5.1 [facility] Comment on above: Performed By: #### C MP ####[facility] Jjhvsnrlbc392[address] [place], [place] [address]Dr. Donna Malone Protein [Mass/Vol] 6.1 g/dL Critically low 6.4-8.2 [facility] Comment on above: Performed By: #### C MP ####[facility] Vafdjzsujg10[address] [place], [place] [address]Dr. Donna Malone Sodium [Moles/Vol] 131 mmol/L Critically low 136-145 [facility] Comment on above: Performed By: #### C MP ####[facility] Chyytiyjby6138 [place] [address]Dr. Donna Malone Urea nitrogen [Mass/Vol] 17.0 mg/dL Normal 7.0-18.0 [facility] Comment on above: Performed By: #### C MP ####[facility] Ixztfphjlp1920 [place] [address]Dr. Donna Malone Urea nitrogen/Creatinine [Mass ratio] 20.7 mg/mg Normal [facility] Comment on above: Performed By: #### C MP ####[facility] Qtlphmmyky8303 [place] [address]Dr. Donna Malone CBC AUTO DIFFon 05-14-2022 BASO # 0.1 103/ul Normal 0.0-0.1 [facility] Comment on above: Performed By: #### C BC ####[facility] Gprqcqwczp[address] [place], [place] [address]Dr. Donna Faisal Basophils/100 WBC (Bld) 0.8 % Normal 0.2-2.0 [facility] Comment on above: Performed By: #### C BC ####[facility] Gcqmbsnxrl27[address] [place], [place] [address]Dr. Donna Malone EO # 0.3 103/ul Normal 0.0-0.7 [facility] Comment on above: Performed By: #### C BC ####[facility] Grxjibohhr[address] [place], [place] [address]Dr. Rubyyvan Malone Eosinophils/100 WBC (Bld) 4.2 % Normal 0.9-7.0 [facility] Comment on above: Performed By: #### C BC ####[facility] Lelbqfwors34[address] [place], [place] [address]Dr. Donna Malone Erythrocyte distribution width (RBC) [Ratio] 14.7 % Normal 11.0-15.0 [facility] Comment on above: Performed By: #### C BC ####[facility] Pngkxofgva14[address] [place], [place] [address]Dr. Donna Malone Hematocrit (Bld) [Volume fraction] 36.5 % Critically low 42.0-54.0 [facility] Comment on above: Performed By: #### C BC ####[facility] Vcctihkxcb9[address] [place], [place] [address]Dr. Rubyyvan Malone Hemoglobin (Bld) [Mass/Vol] 11.9 g/dL Critically low 14.0-18.0 [facility] Comment on above: Performed By: #### C BC ####[facility] Uirkvmnfet32[address] [place], [place] [address]Dr. Donna Malone IG # 0.01 10e3/ul Normal 0.00-0.03 [facility] Comment on above: Performed By: #### C BC ####[facility] Pdbslsepdi4058 [place] [id number]. Donna Malone IG % 0.2 % Normal 0.0-0.5 [facility] Comment on above: Performed By: #### C BC ####[facility] Vqmtpaenkf5631 [place] [address]Dr. Donna Malone LYMPH # 2.1 103/ul Normal 1.2-3.8 [facility] Comment on above: Performed By: #### C BC ####[facility] Vztnxejmsk98[address] [place], [place] [address]Dr. Rubyyvan Malone Lymphocytes/100 WBC (Bld) 32.1 % Normal 20.5-60.0 [facility] Comment on above: Performed By: #### C BC ####[facility] Ahpvbhfikt[address] [place], [place] [address]Dr. Donna Malone MANUAL DIFF REQ NO Normal [facility] Comment on above: Performed By: #### C BC ####[facility] X[address]wnddlgz[address] [place], [place] [address]Dr. Donna Malone MCH (RBC) [Entitic mass] 29.7 pg Normal 25.9-34.0 [facility] Comment on above: Performed By: #### C BC ####[facility] Nowsgfpalk[address] [place], [place] [address]Dr. Donna Malone MCHC (RBC) [Mass/Vol] 32.6 g/dL Normal 29.9-35.2 [facility] Comment on above: Performed By: #### C BC ####[facility] Purxjdmwbh12[address] [place], [place] [address]Dr. Donna Malone MCV (RBC) [Entitic vol] 91.0 fL Normal 80.0-94.0 [facility] Comment on above: Performed By: #### C BC ####[facility] Jqriwfspif22[address] [place], [place] [address]Dr. Donna Malone MONO # 0.5 103/ul Normal 0.3-0.8 [facility] Comment on above: Performed By: #### C BC ####[facility] Gewmaualam0527 [place] [id number]. Donna Malone Monocytes/100 WBC (Bld) 8.1 % Normal 1.7-12.0 [facility] Comment on above: Performed By: #### C BC ####[facility] Rkcmxvcsdh0121 [place] [id number]. Donna Malone NEUT # 3.5 103/ul Normal 1.4-6.5 [facility] Comment on above: Performed By: #### C BC ####[facility] Yhalgoeosq1675 [place] [address]Dr. Donna Malone Neutrophils/100 WBC (Bld) 54.6 % Normal 43.0-75.0 [facility] Comment on above: Performed By: #### C BC ####[facility] Xbqcpbobse1267 [place] [address]Dr. Donna Malone Platelet mean volume (Bld) [Entitic vol] 12.0 fL Normal 9.5-13.5 [facility] Comment on above: Performed By: #### C BC ####[facility] Amybszlaim[address] [place], [place] [address]Dr. Donna Malone PLT 152 103/ul Normal 150-450 [facility] Comment on above: Performed By: #### C BC ####[facility] Inkeczinaz[address] [place], [place] [address]Dr. Donna Malone RBC 4.01 106/ul Critically low 4.70-6.10 [facility] Comment on above: Performed By: #### C BC ####[facility] Lbscptrjnj[address] [place], [place] [address]Dr. Donna Malone WBC 6.4 103/ul Normal 4.0-11.0 [facility] Comment on above: Performed By: #### C BC ####[facility] Rcfpeixyct0[address] [place], [place] [address]Dr. Donna Malone DEPAKENE/VALPROICon 05-14-20 22 DEPAKENE 17.3 ug/ml Critically low 50.0-100.0 [facility] Comment on above: Performed By: #### V ALP ####[facility] Kghzezgddq7611 [place] [address]Dr. Donna Malone POINT OF CARE GLUCOSEon Glucose [Mass/Vol] 89 mg/dL Normal 74-106 [facility] Comment on above: Performed By: #### P OCGLUC ####[facility] Retjwwakgd[address] [place], [place] [address]Dr. Donna Malone PROF CHEM 8 (BAS METB)on Anion gap [Moles/Vol] 13.6 mmol/L Normal [facility] Comment on above: Performed By: #### B MP ####[facility] Duqkqjypfq[address] [place], [place] [address]Dr. Donna Malone Calcium [Mass/Vol] 7.8 mg/dL Critically low 8.5-10.1 [facility] Comment on above: Performed By: #### B MP ####[facility] Tmhtmsprox[address] [place], [place] [address]Dr. Donna Malone Chloride [Moles/Vol] 112 mmol/L Critically high 98-107 [facility] Comment on above: Performed By: #### B MP ####[facility] Yrciyfidzl20[address] [place], [place] [address]Dr. Donna Malone CO2 [Moles/Vol] 22.5 mmol/L Normal 21.0-32.0 [facility] Comment on above: Performed By: #### B MP ####[facility] Kejmdvocfo45[address] [place], [place] [address]Dr. Donna Malone Creatinine [Mass/Vol] 1.01 mg/dL Normal 0.70-1.30 [facility] Comment on above: Performed By: #### B MP ####[facility] Bulotgmbqt07[address] [place], [place] [address]Dr. Donna Malone EGFR-AF RWANDAN >60 Normal >=60 [facility] Comment on above: Performed By: #### B MP ####[facility] Dupqkwavwn8[address] [place], [place] [address]Dr. Donna Malone EGFR-NON AF RWANDAN >60 Normal >=60 [facility] Comment on above: Performed By: #### B MP ####[facility] Jqbtqhgegl7146 [place] [address]Dr. Rubyyvan Malone Glucose [Mass/Vol] 84 mg/dL Normal 74-106 [facility] Comment on above: Performed By: #### B MP ####[facility] Wfpaunwvlc5497 [place] [address]Dr. Donna Malone Potassium [Moles/Vol] 4.1 mmol/L Normal 3.5-5.1 [facility] Comment on above: Performed By: #### B MP ####[facility] Bjqjknibbv11[address] [place], [place] [address]Dr. Rubyyvan Faisal Sodium [Moles/Vol] 144 mmol/L Normal 136-145 [facility] Comment on above: Performed By: #### B MP ####[facility] Arouoponai[address] [place], [place] [address]Dr. Donna Malone Urea nitrogen [Mass/Vol] 21.0 mg/dL Critically high 7.0-18.0 [facility] Comment on above: Performed By: #### B MP ####[facility] Wvisfpbtap[address] [place], [place] [address]Dr. Donna Malone Urea nitrogen/Creatinine [Mass ratio] 20.8 mg/mg Normal [facility] Comment on above: Performed By: #### B MP ####[facility] Ztzvjxhdbi[address] [place], [place] [address]Dr. Donna Malone TSHon 05-14-2022 TSH 1.086 uIU/mL Normal 0.358-3.74 0 [facility] Comment on above: Performed By: #### T SH ####[facility] Gknahgkavt5[address] [place], [place] [address]Dr. Donna Malone BLOOD GASES BTYon 05-13-2022 02 MODE ROOM AIR Normal [facility] Comment on above: Performed By: #### A BG ####[facility] Mfaxttatvz4235 [place] [address]Dr. Donna Malone ALLENS TEST Positive Normal [facility] Comment on above: Performed By: #### A BG ####[facility] Tkwtnxqfhr4027 [place] [address]Dr. Donna Malone Base excess Calc (Bld) [Moles/Vol] -2.5000 mmol/L Critically low -2.0-2.0 [facility] Comment on above: Performed By: #### A BG ####[facility] Winuzifdyq7521 [place] [address]Dr. Donna Malone BIPAP PRESSURE Normal [facility] Comment on above: Performed By: #### A BG ####[facility] Pruwtzgtqf[address] [place], [place] [address]Dr. Donna Malone CPAP Normal [facility] Comment on above: Performed By: #### A BG ####[facility] Qrrxknbdna6124[address] [place], [place] [address]Dr. Donna Malone FIO2 Normal [facility] Comment on above: Performed By: #### A BG ####[facility] Qzqsvpcuek7267[address] [place], [place] [address]Dr. Donna Malone HCO3 (Bld) [Moles/Vol] 22.4 mmol/L Normal 22.0-26.0 [facility] Comment on above: Performed By: #### A BG ####[facility] Wfyhavxxvw[address] [place], [place] [address]Dr. Donna Malone LPM Normal [facility] Comment on above: Performed By: #### A BG ####[facility] Rjkitqqpte605[address] [place], [place] [address]Dr. Donna Malone MINUTE VOLUME Normal [facility] Comment on above: Performed By: #### A BG ####[facility] Wtgwqzguvy4055[address] [place], [place] [address]Dr. Donna Malone Oxygen (Bld) [Partial pressure] 77.6 mm[Hg] Critically low 80.0-100.0 [facility] Comment on above: Performed By: #### A BG ####[facility] Auwebypvly12[address] [place], [place] [address]Dr. Donna Malone Oxygen saturation in Blood 95.5 % Normal 95.0-100.0 [facility] Comment on above: Performed By: #### A BG ####[facility] Osrplmnoyn9225 [place] [address]Dr. Donna Malone PCO2 40.8 mmHg Normal 35.0-45.0 [facility] Comment on above: Performed By: #### A BG ####[facility] Frrlyawneb2231 [place] [address]Dr. Donna Malone PEEP [facility] Comment on above: Performed By: #### A BG ####[facility] Mhtpsuapka05[address] [place], [place] [address]Dr. Donna Malone pH (Bld) 7.359 [pH] Normal 7.350-7.45 0 [facility] Comment on above: Performed By: #### A BG ####[facility] Ofurbgczfw88[address] [place], [place] [address]Dr. Donna Malone PIP [facility] Comment on above: Performed By: #### A BG ####[facility] Kgcvagulgk13[address] [place], [place] [address]Dr. Donna Malone PS [facility] Comment on above: Performed By: #### A BG ####[facility] Azenzzbgsd0657[address] [place], [place] [address]Dr. Donna Malone PUNCTURE SITE RR [facility] Comment on above: Performed By: #### A BG ####[facility] Tsurwvqzui7[address] [place], [place] [address]Dr. Donna Malone RATE [facility] Comment on above: Performed By: #### A BG ####[facility] Qkiytbljnz55[address] [place], [place] [address]Dr. Donna Malone VENT MODE [facility] Comment on above: Performed By: #### A BG ####[facility] Vtazzmtntt8[address] [place], [place] [address]Dr. Donna Malone [place] [facility] Comment on above: Performed By: #### A BG ####[facility] Hktbnyoila5[address] [place], [place] [address]Dr. Donna Malone BNPon 05-13-2022 Natriuretic peptide B (Bld) [Mass/Vol] 156.0 pg/mL Normal <=900.0 [facility] Comment on above: Performed By: #### C MP, CMADM, BNP ####[facility] Rqzrgdnpkh4288 [place] [address]Dr. Donna Faisal CARDIAC MJ ADMITon 022 CK [Catalytic activity/Vol] 119 U/L Normal 39-308 [facility] Comment on above: Performed By: #### C MP, CMADM, BNP ####[facility] Ujahsdthns6959 [place] [address]Dr. Donna Malone CK.MB [Mass/Vol] 1.27 ng/mL Normal <=3.60 [facility] Comment on above: Performed By: #### C MP, CMADM, BNP ####[facility] Yprfvxfqwh0018 [place] [address]Dr. Rubyyvan Malone HSTROP 7.9 pg/mL Normal 4.0-76.1 [facility] Comment on above: Result Comment: CUT- OFF POINTS HAVE BEEN ESTABLISHED BASED ON THE FOURTH UNIVERSAL DEFINITIONS OF MYOCARDIALINFARCTION. THE UPPER REFERENCE LIMIT (URL) OF TROPONIN, DEFINED THE 99TH PERCENTILE OFcTnI DISTRIBUTION IN A REFERENCE POPULATION, HAS BEEN CONFIRMED THE DECISION THRESHOLDFOR WA DIAGNOSIS. Performed By: #### C MP, CMADM, BNP ####[facility] Jmjfnxaqzs4340 [place] [address]Dr. Donna Malone BINDU 111 ng/mL Critically high 16-96 [facility] Comment on above: Performed By: #### C MP, CMADM, BNP ####[facility] Uheahfexmf7165 [place] [address]Dr. Donna Malone CBC AUTO DIFFon 05-13-2022 BASO # 0.1 103/ul Normal 0.0-0.1 [facility] Comment on above: Performed By: #### C BC ####[facility] Rbvfmqcmui3435 [place] [address]Dr. Donna Malone Basophils/100 WBC (Bld) 0.8 % Normal 0.2-2.0 [facility] Comment on above: Performed By: #### C BC ####[facility] Uzdrouhdrm7578 [place] [id number]. Donna Malone EO # 0.1 103/ul Normal 0.0-0.7 [facility] Comment on above: Performed By: #### C BC ####[facility] Doplmabnve5175 [place] [address]Dr. Donna Malone Eosinophils/100 WBC (Bld) 1.8 % Normal 0.9-7.0 [facility] Comment on above: Performed By: #### C BC ####[facility] Hcwdiekjsu5[address] [place], [place] [address]Dr. Donna Malnoe Erythrocyte distribution width (RBC) [Ratio] 14.7 % Normal 11.0-15.0 [facility] Comment on above: Performed By: #### C BC ####[facility] Motbbljjff38[address] [place], [place] [address]Dr. Donna Malone Hematocrit (Bld) [Volume fraction] 38.2 % Critically low 42.0-54.0 [facility] Comment on above: Performed By: #### C BC ####[facility] Kjhnugjxwt[address] [place], [place] [address]Dr. Donna Malone Hemoglobin (Bld) [Mass/Vol] 12.7 g/dL Critically low 14.0-18.0 [facility] Comment on above: Performed By: #### C BC ####[facility] Uflvbktukd14[address] [place], [place] [address]Dr. Donna Malone IG # 0.03 10e3/ul Normal 0.00-0.03 [facility] Comment on above: Performed By: #### C BC ####[facility] Refvfdviph3061 [place] [address]Dr. Donna Malone IG % 0.4 % Normal 0.0-0.5 [facility] Comment on above: Performed By: #### C BC ####[facility] Zcncibdwqc26[address] [place], [place] [address]Dr. Donna Malone LYMPH # 1.6 103/ul Normal 1.2-3.8 [facility] Comment on above: Performed By: #### C BC ####[facility] Addobwbsrx4510 [place] [id number]. Donna Malone Lymphocytes/100 WBC (Bld) 22.8 % Normal 20.5-60.0 [facility] Comment on above: Performed By: #### C BC ####[facility] Tbtrtjhquu6351 [place] [address]Dr. Donna Malone MANUAL DIFF REQ NO Normal [facility] Comment on above: Performed By: #### C BC ####[facility] Ipopbxtyxt2930 [place] [id number]. Donna Faisal MCH (RBC) [Entitic mass] 30.2 pg Normal 25.9-34.0 [facility] Comment on above: Performed By: #### C BC ####[facility] Jtihjxblwa1180 [place] [address]Dr. Donna Malone MCHC (RBC) [Mass/Vol] 33.2 g/dL Normal 29.9-35.2 [facility] Comment on above: Performed By: #### C BC ####[facility] Sgtfkuoaqg7711 [place] [address]Dr. Donna Malone MCV (RBC) [Entitic vol] 91.0 fL Normal 80.0-94.0 [facility] Comment on above: Performed By: #### C BC ####[facility] Vyknfnzckd9261 [place] [address]Dr. Donna Faisal MONO # 0.7 103/ul Normal 0.3-0.8 [facility] Comment on above: Performed By: #### C BC ####[facility] Vwbuqwmxlf5858 [place] [address]Dr. Donna Faisal Monocytes/100 WBC (Bld) 9.1 % Normal 1.7-12.0 [facility] Comment on above: Performed By: #### C BC ####[facility] Rywwkcuttx6255 [place] [address]Dr. Donna Malone NEUT # 4.7 103/ul Normal 1.4-6.5 [facility] Comment on above: Performed By: #### C BC ####[facility] Dbbgjepqjs7959 [place], [place] [address]Ts. Donna Malone Neutrophils/100 WBC (Bld) 65.1 % Normal 43.0-75.0 [facility] Comment on above: Performed By: #### C BC ####[facility] Nbhlvkvdms9295 [place], [place] [address]Ae. Donna Malone Platelet mean volume (Bld) [Entitic vol] 11.8 fL Normal 9.5-13.5 [facility] Comment on above: Performed By: #### C BC ####[facility] Zyogcqgfux4024 [place], [place] [address]Pn. Donna Malone PLT 179 103/ul Normal 150-450 [facility] Comment on above: Performed By: #### C BC ####[facility] Woqvakyqkg1133 [place], [place] [address]Ma. Donna Malone RBC 4.20 106/ul Critically low 4.70-6.10 [facility] Comment on above: Performed By: #### C BC ####[facility] Fdgrohuzbn8634 [place], [place] [address]Gk. Donna Malone WBC 7.2 103/ul Normal 4.0-11.0 [facility] Comment on above: Performed By: #### C BC ####[facility] Naopwlpezo5020 [place], [place] [address]Gc. Donna [address] CT STROKE HEAD WOon 05-13-[address] STROKE HEAD WO Normal [facility]on SARS-CoV-2 (COVID-19) RNA JOSÉ MIGUEL+probe Ql (Unsp spec) Not detected Normal NOT DETECTED [facility] Comment on above: Result Comment: When [...] for this test is supported by the [place] of [employer] and Human Service's declaration that [...] be used). Performed By: #### C VDTBH ####[facility] Cihucpfwvg0044 [place] [address]Dr. Donna Malone DEPAKENE/VALPROICon 05-13-20 22 DEPAKENE 16.9 ug/ml Critically low 50.0-100.0 [facility] Comment on above: Performed By: #### V ALP ####[facility] Woszdwgxin19[address] [place], [place] [address]Dr. Donna Malone DRUG SCREEN RAPID (URINE)on 05-13-2022 AMP Negative Normal NEGATIVE [facility] Comment on above: Performed By: #### D RUGRPD ####[facility] Iyrcznebqk4[address] [place], [place] [address]Dr. Donna Malone BAR Negative Normal NEGATIVE [facility] Comment on above: Performed By: #### D RUGRPD ####[facility] Pxswfeullj0142 [place] [address]Dr. Donna Malone BUP Negative Normal NEGATIVE [facility] Comment on above: Performed By: #### D RUGRPD ####[facility] Zbgvseuozy9067 [place] [address]Dr. Donna Malone BZO Positive Abnormal NEGATIVE [facility] Comment on above: Performed By: #### D RUGRPD ####[facility] Tmetqcvjaz6913 [place] [address]Dr. Donna Malone EVONNE Positive Abnormal NEGATIVE [facility] Comment on above: Performed By: #### D RUGRPD ####[facility] Mwqcyvzqet[address] [place], [place] [address]Dr. Donna Malone CUT-OFFS SEE BELOW Normal [facility] Comment on above: Result Comment: AMP (Amphetamine): 500ng/mL, BAR (Barbituates): 200 ng/mL, BZO (Benzodiazepines): 150 ng/mL, BUP (Buprenorphine): 10 ng/mL, EVONNE (Cocaine): 150 ng/mL, mAMP (Methamphetamine): 500 ng/mL, MTD (Methadone): 200 ng/mL, OPI (Opiates): 100 ng/mL, OXY (Oxycodone): 100 ng/mL, PCP (Phencyclidine): 25 ng/mL, PPX (Propoxyphene): 300 ng/mL, THC (Cannabinoids): 50 ng/mL, TCA (Trycyclic Antidepressants): 300 ng/mL Performed By: #### D RUGRPD ####[facility] Lhmipcueso039[address] [place], [place] [address]Dr. [facility] DRUG CUT HEADER DRUG CLASS TEST SYST EM CUT-OFF CONCENTRATIONS ARE FOLLOWS: Normal [facility] Comment on above: Performed By: #### D RUGRPD ####[facility] Trpztkfgib[address] [place], [place] [address]Dr. Donna [facility] mAMP Negative Normal NEGATIVE [facility] Comment on above: Performed By: #### D RUGRPD ####[facility] Zvtxwofwiq8[address] [place], [place] [address]Dr. [facility] MTD Negative Normal NEGATIVE [facility] Comment on above: Performed By: #### D RUGRPD ####[facility] Wseuhhdpiw7[address] [place], [place] [address]Dr. [facility] OPI Positive Abnormal NEGATIVE [facility] Comment on above: Performed By: #### D RUGRPD ####[facility] Gukeiulixv210[address] [place], [place] [address]Dr. Rubyyvan [facility] OXY Negative Normal NEGATIVE [facility] Comment on above: Performed By: #### D RUGRPD ####[facility] Nvekodfowr11[address] [place], [place] [address]Dr. [facility] PCP Negative Normal NEGATIVE [facility] Comment on above: Performed By: #### D RUGRPD ####[facility] Gswdkxxrnu3705[address] [place], [place] [address]Dr. [facility] PPX Negative Normal NEGATIVE [facility] Comment on above: Performed By: #### D RUGRPD ####[facility] Hsjgmuorad05[address] [place], [place] [address]Dr. Donna Malone TCA Positive Abnormal NEGATIVE [facility] Comment on above: Performed By: #### D RUGRPD ####[facility] Znsmqbypge3430[address] [place], [place] [address]Dr. Donna Malone THC Negative Normal NEGATIVE [facility] Comment on above: Performed By: #### D RUGRPD ####[facility] Zfmllabldf[address] [place], [place] [address]Dr. Donna Malone ER URINE PROFILEon 2 Bilirubin Ql (U) MODERATE Abnormal NEGATIVE [facility] Comment on above: Performed By: #### E RUR ####[facility] Vqywjdgybn9[address] [place], [place] [address]Dr. Donna Malone Clarity (U) SL CLOUDY Abnormal CLEAR [facility] Comment on above: Performed By: #### E RUR ####[facility] Lrmbdbzyyf96[address] [place], [place] [address]Dr. Donna Malone Color (U) DK. YELLOW Normal YELLOW [facility] Comment on above: Performed By: #### E RUR ####[facility] Nzcjvgkeim15[address] [place], [place] [address]Dr. Donna Malone ERUAHD A micrscopic examina tion will be performed if indicated. Normal [facility] Comment on above: Performed By: #### E RUR ####[facility] Tkbwsfmyxp[address] [place], [place] [address]Dr. Donna Malone Glucose Ql (U) 250 mg/dl Abnormal NEGATIVE [facility] Comment on above: Performed By: #### E RUR ####[facility] Dmfxjjfkot3[address] [place], [place] [address]Dr. Donna Malone Hemoglobin Ql (U) Negative Normal NEGATIVE [facility] Comment on above: Performed By: #### E RUR ####[facility] Jfkirnrqhw95[address] [place], [place] [address]Dr. Donna Malone Ketones Ql (U) TRACE Abnormal NEGATIVE [facility] Comment on above: Performed By: #### E RUR ####[facility] Dqrrskonil5[address] [place], [place] [address]Dr. Donna Malone LEUKOCYTES Negative Normal NEGATIVE [facility] Comment on above: Performed By: #### E RUR ####[facility] Pyqsfvviow034[address] [place], [place] [address]Dr. Donna Malone Nitrite Ql (U) Negative Normal NEGATIVE [facility] Comment on above: Performed By: #### E RUR ####[facility] Tivvzynxzz77[address] [place], [place] [address]Dr. Donna Malone pH (U) 5.5 [pH] Normal 5-9 [facility] Comment on above: Performed By: #### E RUR ####[facility] Xhlwyymkeb[address] [place], [place] [address]Dr. Donna Malone SPEC GRAVITY >=1.030 Abnormal 1.005-<=1. 025 [facility] Comment on above: Performed By: #### E RUR ####[facility] Hmffpawedl88[address] [place], [place] [address]Dr. Donna Malone UA PROTEIN TRACE Normal NEGATIVE/ TRACE [facility] Comment on above: Performed By: #### E RUR ####[facility] Rkrynytusc16[address] [place], [place] [address]Dr. Donna Malone UR MICRO IND NOT INDICATED Normal [facility] Comment on above: Performed By: #### E RUR ####[facility] Ezvidflhid7[address] [place], [place] [address]Dr. Donna Faisal Urobilinogen Qn (U) 1.0 {Jermain'U}/dL Normal 0.2 - 1. 0 [facility] Comment on above: Performed By: #### E RUR ####[facility] Gmiuqpplib5[address] [place], [place] [address]Dr. Donna Malone ETHANOL (BLD ALC)on 05-13-20 ALC NOTE NOTE: 80 mg/dl is th e legal limit for a blood alcohol level Normal [facility] Comment on above: Performed By: #### E TH ####[facility] Pnoshiblyd23[address] [place], [place] [address]Dr. Donna Malone Ethanol [Mass/Vol] mg/dL Normal [facility] Comment on above: Performed By: #### E TH ####[facility] Yycrmtqxsm0171 [place] [address]Dr. Donna Malone LACTATE/LACTIC ACIDon 2021 Lactate [Moles/Vol] 1.7 mmol/L Normal 0.4-1.9 [facility] Comment on above: Performed By: #### L ACT ####[facility] Polilrpott7548 [place] [address]Dr. Donna Malone POINT OF CARE GLUCOSEon Glucose [Mass/Vol] 99 mg/dL Normal 74-106 [facility] Comment on above: Performed By: #### P OCGLUC ####[facility] Gsclmrgaoh[address] [place], [place] [address]Dr. Donna Malone PROF 14(COMP METB)on 022 Albumin [Mass/Vol] 3.1 g/dL Critically low 3.4-5.0 [facility] Comment on above: Performed By: #### C MP, CMADM, BNP ####[facility] Wjtmqedqqx2130 [place] [address]Dr. Donna Malone Albumin/Globulin [Mass ratio] 1.0 {ratio} Normal [facility] Comment on above: Performed By: #### C MP, CMADM, BNP ####[facility] Myujzhxjxe1176 [place] [address]Dr. Donna Malone ALP [Catalytic activity/Vol] 37 U/L Critically low 46-116 [facility] Comment on above: Performed By: #### C MP, CMADM, BNP ####[facility] Peqzcypzzv2228 [place] [address]Dr. Donna Malone ALT [Catalytic activity/Vol] 14 U/L Critically low 16-63 [facility] Comment on above: Performed By: #### C MP, CMADM, BNP ####[facility] Cqoscxshrt1554 [place] [address]Dr. Donna Malone Anion gap [Moles/Vol] 12.3 mmol/L Normal [facility] Comment on above: Performed By: #### C MP, CMADM, BNP ####[facility] Ykotekfzdm5944 [place] [address]Dr. Donna Malone AST [Catalytic activity/Vol] 12 U/L Critically low 15-37 [facility] Comment on above: Performed By: #### C MP, CMADM, BNP ####[facility] Iidegjafkh8000 [place] [address]Dr. Donna Malone Bilirubin [Mass/Vol] 0.4 mg/dL Normal 0.2-1.0 [facility] Comment on above: Performed By: #### C MP, CMADM, BNP ####[facility] Ihrufrmxjy146[address] [place], [place] [address]Dr. Donna Malone Calcium [Mass/Vol] 7.8 mg/dL Critically low 8.5-10.1 [facility] Comment on above: Performed By: #### C MP, CMADM, BNP ####[facility] Janmuhupyg8767[address] [place], [place] [address]Dr. Donna Malone Chloride [Moles/Vol] 108 mmol/L Critically high 98-107 [facility] Comment on above: Performed By: #### C MP, CMADM, BNP ####[facility] Qpgrawdprc917[address] [place], [place] [address]Dr. Donna Malone CO2 [Moles/Vol] 24.8 mmol/L Normal 21.0-32.0 [facility] Comment on above: Performed By: #### C MP, CMADM, BNP ####[facility] Zmrnhkixom6[address] [place], [place] [address]Dr. Donna Malone Creatinine [Mass/Vol] 1.83 mg/dL Critically high 0.70-1.30 [facility] Comment on above: Performed By: #### C MP, CMADM, BNP ####[facility] Jxzeigllrz[address] [place], [place] [address]Dr. Donna Malone EGFR-AF RWANDAN 45 mL/min/1.73m2 Critically low >=60 [facility] Comment on above: Performed By: #### C MP, CMADM, BNP ####[facility] Yaavhpiqsk7461 [place] [address]Dr. Donna Malone EGFR-NON AF RWANDAN 37 mL/min/1.73m2 Critically low >=60 [facility] Comment on above: Performed By: #### C MP, CMADM, BNP ####[facility] Qpdwxhfhzx1927 [place] [address]Dr. Donna Malone Globulin (S) [Mass/Vol] 3.2 g/dL Normal [facility] Comment on above: Performed By: #### C MP, CMADM, BNP ####[facility] Papsscicjk8573 [place] [address]Dr. Donna Malone Glucose [Mass/Vol] 202 mg/dL Critically high 74-[address] [facility] Comment on above: Performed By: #### C MP, CMADM, BNP ####[facility] [id number] [place] [address]Dr. Donna Malone Potassium [Moles/Vol] 4.1 mmol/L Normal 3.5-5.1 [facility] Comment on above: Performed By: #### C MP, CMADM, BNP ####[facility] [id number] [place] [address]Dr. Donna Malone Protein [Mass/Vol] 6.3 g/dL Critically low 6.4-8.2 [facility] Comment on above: Performed By: #### C MP, CMADM, BNP ####[facility] [id number] [place] [address]Dr. Donna Malone Sodium [Moles/Vol] 141 mmol/L Normal 136-145 [facility] Comment on above: Performed By: #### C MP, CMADM, BNP ####[facility] [address] [place] [address]Dr. Donna Malone Urea nitrogen [Mass/Vol] 32.0 mg/dL Critically high 7.0-18.0 [facility] Comment on above: Performed By: #### C MP, CMADM, BNP ####[facility] [address] [place] [address]Dr. Yilan Malone Urea nitrogen/Creatinine [Mass ratio] 17.5 mg/mg Normal [facility] Comment on above: Performed By: #### C MP, CMADM, BNP ####[facility] [address] [place] [address]Dr. Donna Malone PROTIMEon 05-13-2022 INR Coag (PPP) [Relative time] 1.04 {INR} Normal [facility] Comment on above: Performed By: #### P T, PTT ####[facility] [address] [place] [address]Dr. Donna Malone INR GUIDELINES SEE BELOW Normal [facility] Comment on above: Result Comment: FLORESITA RED INR: 2.0 - 3.0 CONDITIONS NOT LISTED BELOW 2.5 - 3.5 FOR PROSTHETIC HEART VALVE REPLACEMENT 2.5 - 3.5 RECURRENT THROMBOSIS Performed By: #### P T, PTT ####[facility] [address] [place] [address]Dr. Donna Malone PT Coag (PPP) [Time] 11.2 s Normal 9.0-11.6 [facility] Comment on above: Performed By: #### P T, PTT ####[facility] [address] [place] [address]Dr. Donna Malone PTTon 05-13-2022 aPTT Coag (Bld) [Time] 27.5 s Normal 22.3-36.2 [facility] Comment on above: Performed By: #### P T, PTT ####[facility] [id number] [place] [address]Dr. Donna Malone XR CHEST 1 Von 05-13-2022 XR CHEST 1 V Normal [facility] Ambulatory Visit Summaryon 0 10-03-2021 Ambulatory [...] physician if questions or concerns acetaminophen acetaminophen-hydrocodone (Foster 5/325 Tab) amlodipine (amLODIPine 5 mg Tab) [...] [facility] [address] [place] [address]- Medications What How Much When Instructions New ciprofloxacin (Cipro 500 mg Tab) 1 Tablets By Mouth Every day Take 1 tablet the day before the procedure and 1 tablet after the procedure Pickup at [facility] Unchanged acetaminophen 650 Milligram Every 4 hours Contact prescribing physician if questions or concerns Unchanged acetaminophen-hydrocodone (Foster 5/ 325 Tab) 1 Tablets By Mouth [...] physician if questions or concerns Pharmacy Information [facility]: [address] [place], [place] [id number] [phone] (more content not included)... Normal [facility] Ambulatory Visit Summary TAYLOR MCCLELLAN SR [...] physician if questions or concerns acetaminophen acetaminophen-hydrocodone (Foster 5/325 Tab) amlodipine (amLODIPine 5 mg Tab) [...] [facility] [address], [place] [address]- Medications What How Much When Instructions New ciprofloxacin (Cipro 500 mg Tab) 1 Tablets By Mouth Every day Take 1 tablet the day before the procedure and 1 tablet after the procedure Pickup at [facility] Unchanged acetaminophen 650 Milligram Every 4 hours Contact prescribing physician if questions or concerns Unchanged acetaminophen-hydrocodone (Foster 5/ 325 Tab) 1 Tablets By Mouth [...] physician if questions or concerns Pharmacy Information [facility]: [address] [place], [place] [id number] [phone] (more content not included)... Normal [facility] Fdc Recordson 10-03 Fdc Records [id number] Normal [facility] Patient Educationon 10-03-19 Patient Education Urology [...] Follow these instructions at home: ? Take rylm-xbr-popexbu and prescription medicines only as told by [...] You d (more content not included)... Normal [facility] Urology Office/Clinic Noteon 10-03-2021 Urology Office/Clinic Note Chief Complaint This is a 66 year old male in the [place] ER on 09/14/21. This patient has a [...] UroLift 10/30/18. Pt. was seen in the [facility] ER on 09/14/21 due to generalized [...] recently. Family was in the hospital at [place] where he had severe weakness. A Galindo [...] Urolift 10/30/18. Patient was last seen in 2018. Patient was in [facility] 09/14/21 due to weakness and acute [...] dribbling) moderate, (more content not included)... Normal [facility] Comment on above: Result Comment: Elec tronically Signed By: Lisandro Orourke Jr., MD\.br\Date and Time Signed: 10/03/21 12:37 EST\.br\Electronically Co-Signed By: Lisandra Arias\.br\Date and Time Co-Signed: 10/03/21 12:32 EST APTTon 10-13-2019 aPTT Coag (Bld) [Time] 34.9 s Normal 25.0-35.0 Th e [facility] Comment on above: Result Comment: [...] FOR THIS PURPOSE. Performed By: #### 5 3551, [address]0941 #### [facility] [address] [place] [address], [facility] CREATININE BLOODon 0 Creatinine [Mass/Vol] 1.07 mg/dL Normal 0.70-1.30 [facility] Comment on above: Performed By: #### 2 5656 #### [facility] [address] [place] [address], [facility] Creatinine [Mass/Vol] mg/dL Normal >60 [facility] Comment on above: Performed By: #### 2 5656 #### [facility] [address] [facility] [place] [address], [facility] CT LUMBAR SPINE W CONTRASTon 10-13-2019 CT LUMBAR SPINE W CONTRAST [facility] Department of Radiology [address] [place] [phone] Patient Name: TAYLOR MCCLELLAN : 1955 Sex: M Age: Race: White Pt. Location: Patient Status: O Ordered Date: 09/11/2019 2:50:00 PM Completed Date: 10/13/2019 11:37 AM Requesting Provider: JASEN HOWARD Attending Provider: JASEN HOWARD Report Copy To: LUI BRYSON Signs & Symptoms: M51.36 Other intervertebral disc degeneration, lumbar region I10 History: [place] Saturday appointment call [facility] [phone] [facility] auth# [id number] 09/16/19-10/15/19 cpt code 05334 *mla Comments: Exam: CT LUMBAR SPINE W [...] achievable Electronically signed: Fredy Salmeron. Transcribed by: [email or web address], User Resident: Electronically Signed by: FREDY SALMERON @ 10/13/2019 02:08 PM Normal [facility] LUMBAR MYELOGRAMon 0 LUMBAR MYELOGRAM [facility] Department of Radiology [address] [place] [phone] Patient Name: TAYLOR MCCLELLAN : 1955 Sex: M Age: Race: White Pt. Location: Patient Status: O Ordered Date: 09/11/2019 2:50:00 PM Completed Date: 10/13/2019 10:49 AM Requesting Provider: JASEN HOWARD Attending Provider: JASEN HOWARD Report Copy To: LUI BRYSON Signs & Symptoms: M51.36 Other intervertebral disc degeneration, lumbar region I10 History: [place] Saturday appointment Patient will need labs, [...] risks are acceptable. Consent was obtained. Timeout: [place] protocol timeout verification performed. PROCEDURE: Estimated blood [...] reports Electronically signed: Fredy Salmeron. Transcribed by: [email or web address], User Resident: KRISTINE BALLARD Electronically Signed by: FREDY SALMERON @ 10/13/2019 06:58 PM I personally read this/these film(s) with this resident Normal [facility] Comment on above: Order Comment: , , = ========= , Ordering Provider - JASEN HOWARD MD , PROTHROMBIN TIMEon 0 INR Coag (PPP) [Relative time] 1.05 {INR} Normal 0.91-1.16 [facility] Comment on above: Result Comment: [...] CHEST 1995;[id number]. Performed By: #### 5 6101, [address]8760 #### [facility] [address] [facility] PT Coag (PPP) [Time] 13.7 s Normal 12.3-14.8 [facility] Comment on above: Result Comment: ALL RESULTS MUST BE INTERPRETED WITH RESPECT TO BLOOD DRAWING ARTIFACT OR DILUTION ERROR OF ANTICOAGULANT AT THE TIME OF SAMPLING. Performed By: #### 5 6101, [address]3569 #### [facility] [address] [facility] Laboratory Studieson 019 HBV surface Ab Ql (S) Non reactive [facility] Work Phone: Comment on above: Non Reactive: Incons istent with immunity, less than 10 mIU/mL Reactive: Consistent with immunity, greater than 9.9 mIU/mL HBV surface Ag IA Ql Negative [facility] Work Phone: Comment on above: Performed at: [address] [id number] [address] Supervisor: Arnold Cabral PhD, Phone: [phone] HCV Ab Signal/Cutoff IA RelACnc 0.1 s/co ratio [facility] Work Phone: Hepatitis C Antibody Comment See comment [facility] Work Phone: Comment on above: Non reactive HCV ant ibody screen is consistent with no HCV infection, unless recent infection is suspected or other evidence exists to indicate HCV infection. HIV 1+2 Ab IA Ql Nonreactive [facility] Work Phone: Laboratory Studieson 018 Glucose mass conc Glu2: cleaned meter [facility] Work Phone: Glucose mass conc 121 mg/dL [facility] Work Phone: Comment on above: Random Glucose Refer ence Range is dependent on time and content of last meal. Glucose of more than 200 mg/dL in a nonstressed, ambulatory subject supports the diagnosis of Diabetes Mellitus. Calcium mass conc 8.7 mg/dL 8.2-10.2 [facility] Work Phone: Chloride molar conc 102 mmol/L 95-114 [facility] Work Phone: CO2 molar conc 27.5 mmol/L 22.0-30.0 [facility] Work Phone: Creatinine mass conc 1.08 mg/dL 0.64-1.27 [facility] Work Phone: GFR/1.73 sq M predicted among blacks MDRD vol rate/area (S/P/Bld) mL/min/{1.73_m2} [facility] Work Phone: Comment on above: GFR estimated refere nce range: According to KDOQI guidelines, <60 ml/min/1.73m2 is sufficient to diagnose a patient with chronic kidney disease. GFR/1.73 sq M predicted among non-blacks MDRD vol rate/area (S/P/Bld) mL/min/{1.73_m2} [facility] Work Phone: Glucose mass conc 86 mg/dL 70-100 [facility] Work Phone: Comment on above: ADA recommended refe rence range Random Glucose Reference Range is dependent on time and content of last meal. Glucose of more than 200 mg/dL in a nonstressed, ambulatory subject supports the diagnosis of Diabetes Mellitus. Pharmacy Creatinine Clearance (Chem [id number] [facility] Work Phone: Potassium molar conc 3.5 mmol/L 3.5-5.1 [facility] Work Phone: Sodium molar conc 139 mmol/L 136-146 [facility] Work Phone: Urea nitrogen mass conc 10 mg/dL 9-23 [facility] Work Phone: Laboratory Studieson 018 Basophils #/vol (Bld) 0.1 10*3/uL 0.0-0.2 [facility] Work Phone: Basophils/100 WBC (Bld) 1.0 % [facility] Work Phone: Eosinophils #/vol (Bld) 0.2 10*3/uL 0.0-0.45 [facility] Work Phone: Eosinophils/100 WBC (Bld) 2.8 % [facility] Work Phone: Erythrocyte distribution width Ratio (RBC) 13.9 % 12.0-14.8 [facility] Work Phone: Hematocrit Volume Fraction (Bld) 36.3 % Low 38.8-50.0 [facility] Work Phone: Hemoglobin mass conc (Bld) 12.5 g/dL Low 13.0-17.0 [facility] Work Phone: Lymphocytes #/vol (Bld) 1.6 10*3/uL 1.00-4.8 [facility] Work Phone: Lymphocytes/100 WBC (Bld) 23.7 % [facility] Work Phone: MCH Entitic mass (RBC) 28.9 pg 27.5-35.2 [facility] Work Phone: MCHC mass conc (RBC) 34.3 g/dL 32.5-35.6 [facility] Work Phone: MCV Entitic volume (RBC) 84.4 fL 83.5-101 [facility] Work Phone: Monocytes #/vol (Bld) 0.4 10*3/uL 0.0-0.8 [facility] Work Phone: Monocytes/100 WBC (Bld) 6.7 % [facility] Work Phone: Neutrophils #/vol (Bld) 4.4 10*3/uL 1.8-7.7 [facility] Work Phone: Neutrophils/100 WBC (Bld) 65.8 % [facility] Work Phone: Platelet mean volume Entitic volume (Bld) 10.3 fL High 6.6-10.1 [facility] Work Phone: Platelets #/vol (Bld) 199 10*3/uL 150-450 [facility] Work Phone: RBC #/vol (Bld) 4.31 10*6/uL 3.90-5.60 [facility] Work Phone: WBC #/vol (Bld) 6.6 10*3/uL 4.1-10.5 [facility] Work Phone: Laboratory Studieson 018 Appearance Nom (U) Slightly cloudy Abnormal F [facility] Work Phone: Bacteria Auto Ql (U) None seen [facility] Work Phone: Bilirubin Ql (U) Negative [facility] Work Phone: Color Nom (U) Yellow [facility] Work Phone: Creatinine mass conc (U) 143.4 mg/dL [facility] Work Phone: Comment on above: No reference range e stablished Epithelial cells Auto #/area (Urine sed) Rare /HPF [facility] Work Phone: Glucose Automated test strip mass conc (U) Normal mg/dL [facility] Work Phone: Hemoglobin Automated test strip Ql (U) 1+ High [facility] Work Phone: Ketones mass conc (U) 1+ High [facility] Work Phone: Leukocyte esterase Automated test strip Ql (U) Negative [facility] Work Phone: Nitrite Automated test strip Ql (U) Negative [facility] Work Phone: pH (U) 5.5 [pH] 5.0-9.0 [facility] Work Phone: pH (U) [pH] 1.001-1.03 0 [facility] Work Phone: Protein mass conc (U) Negative [facility] Work Phone: RBC Auto #/area (Urine sed) 1-2 /HPF [facility] Work Phone: Sodium molar conc (U) 144.0 mmol/L [facility] Work Phone: Comment on above: No reference range e stablished Urate crystals LM.HPF #/area (Urine sed) 3 /[HPF] [facility] Work Phone: Urobilinogen mass conc (U) Normal mg/dL [facility] Work Phone: WBC Auto #/area (Urine sed) None seen /HPF [facility] Work Phone: Albumin mass conc 2.7 g/dL Low 3.2-5.5 [facility] Work Phone: Albumin/Globulin mass ratio 0.8 {ratio} [facility] Work Phone: ALP enzyme act/vol 39 U/L 32-92 [facility] Work Phone: ALT No additional P-5'-P enzyme act/vol 14 U/L 10-60 [facility] Work Phone: AST enzyme act/vol 25 U/L 10-42 [facility] Work Phone: Bilirubin mass conc 0.6 mg/dL 0.3-1.2 [facility] Work Phone: Globulin mass conc (S) 3.6 g/dL [facility] Work Phone: Protein mass conc 6.3 g/dL 6.1-7.9 [facility] Work Phone: Laboratory Studieson 018 T3 free mass conc 3.28 pg/mL 2.50-3.90 [facility] Work Phone: T4 free mass conc 0.95 ng/dL 0.61-1.12 [facility] Work Phone: Amphetamines Ql (U) Negative [facility] Work Phone: Barbiturates Ql (U) Negative [facility] Work Phone: Benzodiazepines Ql (U) Positive High [facility] Work Phone: Cannabinoids Screen Ql (U) Negative [facility] Work Phone: Comment on above: These are unconfirme d results and should not be used for legal purposes. Drug Cut-Off Concentration: AMPH 1000 ng/mL EWA 200 ng/mL JOHN 200 ng/mL COCM 300 ng/mL OP 300 ng/mL PCP 25 ng/mL THC 20 ng/mL Cocaine Ql (U) Negative [facility] Work Phone: Opiates Ql (U) Positive High [facility] Work Phone: Phencyclidine Ql (U) Negative [facility] Work Phone: Ammonia mass conc (Unsp spec) 20 umol/L 11-35 [facility] Work Phone: Bilirubin.direct mass conc 0.2 mg/dL 0.0-0.4 [facility] Work Phone: Bilirubin.indirect mass conc 0.8 mg/dL [facility] Work Phone: Cobalamin (Vitamin B12) mass conc 365 pg/mL 180-914 [facility] Work Phone: Folate mass conc 12.4 ng/mL [facility] Work Phone: Comment on above: Folate reference ran ge: >5.9 ng/ml The WHO technical consultation on folate and vitamin b12 deficiencies has determined that folate concentrations less than 4 ng/ml are considered deficient. Magnesium molar conc (Unsp spec) 1.7 mg/dL 1.6-2.6 [facility] Work Phone: Thyrotropin Qn 0.20 uIU/mL Low 0.45-5.33 [facility] Work Phone: Comment on above: Revised TSH Assay This assay is standardized to the World Health Organization International Standard for human TSH. Please note Reference Intervals have changed. Laboratory Studieson 018 Casts LM Nom (Urine sed) N/A [facility] Work Phone: Epithelial cells.renal LM.HPF #/area (Urine sed) Rare /HPF [facility] Work Phone: Hyaline casts Auto #/vol (U) 20-49 /LPF High [facility] Work Phone: Lactate molar conc (U) 0.9 mmol/L [facility] Work Phone: [phone] CK enzyme act/vol 107 U/L 22-269 [facility] Work Phone: Phosphate mass conc 5.0 mg/dL High 2.5-4.6 [facility] Work Phone: Laboratory Studieson 04-05- 017 Glucose mass conc 122 mg/dL [facility] Work Phone: Comment on above: RANDOM GLUCOSE REFER ENCE RANGE IS DEPENDENT ON TIME AND CONTENT OF LAST MEAL.GLUCOSE OF MORE THAN 200MG/DL IN A NONSTRESSED,AMBULATORY SUBJECT SUPPORTS THE DIAGNOSIS OF DIABETES MELLITUS. Laboratory Studieson 017 Basophils #/vol (Bld) 0.1 10*3/uL 0.0-0.2 [facility] Work Phone: Basophils/100 WBC (Bld) 0.9 % [facility] Work Phone: Calcium mass conc 8.6 mg/dL 8.2-10.2 [facility] Work Phone: Chloride molar conc 109 mmol/L 95-114 [facility] Work Phone: CK enzyme act/vol 355 U/L High 22-269 [facility] Work Phone: CO2 molar conc 19.5 mmol/L Low 22.0-30.0 [facility] Work Phone: Creatinine mass conc 0.99 mg/dL 0.64-1.27 [facility] Work Phone: Eosinophils #/vol (Bld) 0.20 10*3/uL 0.0-0.45 [facility] Work Phone: Eosinophils/100 WBC (Bld) 3.3 % [facility] Work Phone: Erythrocyte distribution width Ratio (RBC) 13.8 % 12.0-14.8 [facility] Work Phone: Estimated GFR (Non- > 60 [facility] Work Phone: GFR/1.73 sq M.predicted MDRD (S/P/Bld) [Vol rate/Area] mL/min/{1.73_m2} [facility] Comment on above: GFR estimated refere nce range: According to KDOQI guidelines, <60 ml/min/1.73m2 is sufficient to diagnose a patient with chronic kidney disease. GFR/1.73 sq M.predicted MDRD vol rate/area mL/min/{1.73_m2} [facility] Work Phone: Comment on above: GFR estimated refere nce range: According to KDOQI guidelines, <60 ml/min/1.73m2 is sufficient to diagnose a patient with chronic kidney disease. Glucose mass conc 94 mg/dL 70-100 [facility] Work Phone: Comment on above: ADA RECOMMENDED REFE RENCE RANGE Hematocrit Volume Fraction (Bld) 41.5 % 38.8-50.0 [facility] Work Phone: Hemoglobin mass conc (Bld) 14.1 g/dL 13.0-17.0 [facility] Work Phone: Lymphocytes #/vol (Bld) 2.6 10*3/uL 1.00-4.8 [facility] Work Phone: Lymphocytes/100 WBC (Bld) 40.3 % [facility] Work Phone: MCH Entitic mass (RBC) 30.4 pg 27.5-35.2 [facility] Work Phone: MCHC mass conc (RBC) 34.1 g/dL 32.5-35.6 [facility] Work Phone: MCV Entitic volume (RBC) 89.2 fL 83.5-101 [facility] Work Phone: Monocytes #/vol (Bld) 0.4 10*3/uL 0.0-0.8 [facility] Work Phone: Monocytes/100 WBC (Bld) 6.4 % [facility] Work Phone: Neutrophils #/vol (Bld) 3.1 10*3/uL 1.8-7.7 [facility] Work Phone: Neutrophils (%) (Auto) 49.1 % [facility] Work Phone: Neutrophils/100 WBC (Bld) 49.1 % [facility] Platelet mean volume Entitic volume (Bld) 10.7 fL High 6.6-10.1 [facility] Work Phone: Platelets #/vol (Bld) 160 10*3/uL 150-450 [facility] Work Phone: Potassium molar conc 3.4 mmol/L Low 3.5-5.1 [facility] Work Phone: RBC #/vol (Bld) 4.65 10*6/uL 3.90-5.60 [facility] Work Phone: Sodium molar conc 138 mmol/L 136-146 [facility] Work Phone: Urea nitrogen mass conc 7 mg/dL Low 9-23 [facility] Work Phone: WBC #/vol (Bld) 6.4 10*3/uL 4.1-10.5 [facility] Work Phone: Laboratory Studieson 017 Platelet Aggregation (ADP) 57.8 % 0-100 [facility] Work Phone: Comment on above: NO REFERENCE RANGE I S ESTABLISHED OR APPLICABLE Platelet Inhibition ADP 42.2 % 0-100 [facility] Work Phone: Comment on above: NO REFERENCE RANGE I S ESTABLISHED OR APPLICABLE TEG Max Amplitude (Citrated) 69.9 mm 50-70 [facility] Work Phone: TEG Max Amplitude (Rapid) 29.9 0-90 [facility] Work Phone: Comment on above: TEG MA A HAS NO REFE RENCE RANGE Thrombelastograph (TEG) Net G ADP 53.0 MM 0-90 [facility] Work Phone: Comment on above: TEG MA ADP HAS NO RE FERENCE RANGE Albumin mass conc 3.1 g/dL Low 3.2-5.5 [facility] Work Phone: Albumin/Globulin mass ratio 1.0 {ratio} [facility] Work Phone: ALP enzyme act/vol 44 U/L 32-92 [facility] Work Phone: ALT enzyme act/vol 18 U/L 10-60 [facility] Work Phone: AST enzyme act/vol 27 U/L 10-42 [facility] Work Phone: Bilirubin Ql (U) 0.6 mg/dL 0.3-1.2 [facility] Work Phone: Bilirubin.direct mass conc 0.1 mg/dL 0.0-0.4 [facility] Work Phone: Bilirubin.indirect mass conc (Body fld) 0.5 mg/dL [facility] Work Phone: Cholesterol in HDL mass conc 26 mg/dL Low -71 [facility] Work Phone: Comment on above: HDL CHOL ATP-III CLA SSIFICATION Cardiovascular Risk HDL > or equal to 60 mg/dL Low HDL < 40 mg/dL High Cholesterol mass conc 150 mg/dL 140-200 [facility] Work Phone: Comment on above: CHOL less than 200 m g/dL Low risk CHOL 201-239 mg/dL Borderline risk CHOL 240 mg/dL and greater High risk Cholesterol mass conc 30 mg/dL [facility] Work Phone: Cholesterol.total/Chol esterol in HDL mass ratio 5.8 {ratio} [facility] Work Phone: Globulin mass conc (S) 3.2 g/dL [facility] Work Phone: LDL Cholesterol, Calculated 93 mg/dL 0-100 [facility] Work Phone: Comment on above: LDL ATP III CLASSIFI CATION LDL less than 100 mg/dL Optimal LDL 100-129 mg/dL Near or above optimal LDL 130-159 mg/dL Borderline high LDL 160-189 mg/dL High LDL greater than 189 mg/dL Very high Protein mass conc 6.3 g/dL 6.1-7.9 [facility] Work Phone: Thyrotropin Qn 1.12 uIU/mL 0.45-5.33 [facility] Work Phone: Comment on above: Revised TSH Assay This assay is standardized to the World Health Organization International Standard for human TSH. Please note Reference Intervals have changed. Triglyceride mass conc 153 mg/dL High 35-149 [facility] Work Phone: Comment on above: TRIG ATP III CLASSIF ICATION TRIG less than 150 mg/dL Normal TRIG 150-199 mg/dL Borderline high TRIG 200-500 mg/dL High TRIG greater than 500 mg/dL Very high Standard traceable to the Center for Disease Conrtrol and Prevention (CDC) test method. Laboratory Studieson 017 Glucose mass conc Glu2: cleaned meter [facility] Work Phone: Ammonia mass conc (P) 19 umol/L 11-35 [facility] Work Phone: Cobalamin (Vitamin B12) mass conc 202 pg/mL 180-914 [facility] Work Phone: Folate 10.7 ng/mL [facility] Work Phone: Comment on above: FOLATE REFERENCE RAN GE: >5.9 ng/mL The WHO Technical Consultation on folate and vitamin B12 deficiencies has determined that folate concentrations less than 4 ng/mL are considered deficient. Amphetamines Ql (U) Negative [facility] Work Phone: Appearance Nom (U) Clear [facility] Work Phone: Bacteria LM.HPF #/area (Urine sed) None seen [facility] Work Phone: Benzodiazepines Ql (U) Positive High [facility] Work Phone: Bilirubin Ql (U) Negative [facility] Work Phone: Cocaine Ql (U) Negative [facility] Work Phone: Color Nom (U) Yellow [facility] Work Phone: Epithelial cells.squamous LM.HPF #/area (Urine sed) 5-9 /hpf High [facility] Work Phone: Glucose mass conc (U) 250 mg/dL High [facility] Work Phone: Hyaline casts LM Ql (Urine sed) 0-8 /lpf [facility] Work Phone: Ketones Ql (U) Trace High [facility] Work Phone: Leukocyte esterase Test strip Ql (U) Negative [facility] Work Phone: Nitrite Ql (U) Negative [facility] Work Phone: Opiates Ql (U) Negative [facility] Work Phone: pH (U) 5.0 [pH] 5.0-9.0 [facility] Work Phone: Phencyclidine Ql (U) Negative [facility] Work Phone: Protein Ql (U) Negative [facility] Work Phone: RBC #/vol (U) 50-100 /hpf [facility] Work Phone: Specific gravity Relative Density (U) 1.039 High 1.001-1.03 0 [facility] Work Phone: Urine Barbiturates Screen Negative [facility] Work Phone: Urine Collection Type Type [facility] Work Phone: Comment on above: CATHETERIZED Urine Drug Screen Comment See comment [facility] Work Phone: Comment on above: THESE ARE UNCONFIRME D RESULTS AND SHOULD NOT BE USED FOR LEGAL PURPOSES. DRUG CUT-OFF CONCENTRATION: AMPH 1000 ng/mL EWA 200 ng/mL JOHN 200 ng/mL COCM 300 ng/mL OP 300 ng/mL PCP 25 ng/mL THC 20 ng/mL Urine Marijuana (THC) Screen Negative [facility] Work Phone: Urine Occult Blood 3+ High [facility] Work Phone: Urine Transitional Epithelial Cells 3-4 /hpf [facility] Work Phone: Urobilinogen Qn (U) Normal mg/dL [facility] Work Phone: WBC #/vol (U) 0-1 /hpf [facility] Work Phone: Bedside Ionized Calcium (Deepti) 1.22 mmol/L 1.12-1.32 [facility] Work Phone: Bedside Total CO2 23 mmol/L 23-29 [facility] Work Phone: Chloride molar conc 110.0 mmol/L High 98-109 [facility] Work Phone: Creatinine mass conc 1.2 mg/dL 0.6-1.3 [facility] Work Phone: Comment on above: ER/ESD PHYSICIAN IS NOTIFIED/SHOWN ALL ISTAT RESULTS. CRITICAL VALUES MAY BE CONFIRMED BY LABORATORY TESTING IF DEEMED NESCESSARY BY ER ATTENDING DOCTOR Glucose mass conc 135 mg/dL High 70-105 [facility] Work Phone: Hematocrit Volume Fraction (Bld) 48.0 % 38.0-51.0 [facility] Work Phone: Hemoglobin mass conc (Bld) 16.3 g/dL 12.0-17.0 [facility] Work Phone: Potassium molar conc 4.7 mmol/L 3.5-4.9 [facility] Work Phone: Sodium molar conc 144 mmol/L 138-146 [facility] Work Phone: Urea nitrogen mass conc 15 mg/dL 8-26 [facility] Work Phone: Amylase enzyme act/vol 39 U/L 28-100 [facility] Work Phone: CK.MB mass conc 9.5 ng/mL High 0.6-6.3 [facility] Work Phone: Creatine Kinase MB Relative Index 1.5 0.00-2.50 [facility] Work Phone: Ethyl Alcohol Level < 5 mg/dL [facility] Work Phone: Glucose mass conc 140 mg/dL High 70-100 [facility] Work Phone: Comment on above: RANDOM GLUCOSE REFER ENCE RANGE IS DEPENDENT ON TIME AND CONTENT OF LAST MEAL.GLUCOSE OF MORE THAN 200MG/DL IN A NONSTRESSED,AMBULATORY SUBJECT SUPPORTS THE DIAGNOSIS OF DIABETES MELLITUS. Lipase enzyme act/vol 22.0 U/L 22-51 [facility] Work Phone: Percent Ethyl Alcohol < 0.005 % [facility] Work Phone: Troponin I.cardiac mass conc ng/mL 0-0.02 [facility] Work Phone: Comment on above: [place] Cut off value > or equal to 0.03 ng/mL in conjunction with clinical conditions of myocardial infarction. (www.escardio.org/guidelines) Glucose mass conc 134 mg/dL [facility] Work Phone: Hemoglobin A1c/Hemoglobin.total mass fraction (Bld) 6.3 % High 4.3-5.6 [facility] Work Phone: Comment on above: Increased risk for d iabetes: 5.7 - 6.4 Diabetes: >6.4 Glycemic control for adults with diabetes: <7.0 Vital Signs Date Time Vital Sign Value Performing Clinician Facility 11-05-2022 14:30-0500 Diastolic blood pressure 72 mm[Hg] [address] Other [facility] Other 11-05-2022 14:30-0500 SaO2% (BldA) [Mass fraction] 97 % [address] Other [facility] Other 11-05-2022 14:30-0500 Systolic blood pressure 118 mm[Hg] [address] Other [facility] Other 10-18-2022 14:00-0500 Body weight 96.[address] Other [facility] Other 10-18-2022 14:00-0500 Diastolic blood pressure 64 mm[Hg] [address] Other [facility] Other 10-18-2022 14:00-0500 SaO2% (BldA) [Mass fraction] 98 % [address] Other [facility] Other 10-18-2022 14:00-0500 Systolic blood pressure 120 mm[Hg] [address] Other [place] [facility] Other 07-20-2022 16:00-0500 Body temperature 97.4 [degF] MD Genesis Reynolds Work Phone: [facility] 07-20-2022 16:00-0500 Diastolic blood pressure 72 mm[Hg] MD Genesis Reynolds Work Phone: [facility] 07-20-2022 16:00-0500 Heart rate 61 /min MD Genesis Reynolds Work Phone: [facility] 07-20-2022 16:00-0500 Respiratory rate 16 /min MD Genesis Reynolds Work Phone: [facility] 07-20-2022 16:00-0500 SaO2% (BldA) [Mass fraction] 98 % MD Genesis Reynolds Work Phone: [facility] 07-20-2022 16:00-0500 Systolic blood pressure 159 mm[Hg] MD Genesis Reynolds Work Phone: [facility] 07-20-2022 06:00-0500 Body weight 95.3 kg MD Genesis Reynolds Work Phone: [facility] 07-18-2022 11:22-0500 Body height 177.8 cm MD Genesis Reynolds Work Phone: [facility] 07-17-2022 22:14-0500 Body height 177.8 cm MD Genesis Reynolds Work Phone: [facility] 07-17-2022 22:14-0500 Body temperature 97.5 [degF] MD Genesis Reynolds Work Phone: [facility] 07-17-2022 22:14-0500 Body weight 95.9 kg MD Genesis Reynolds Work Phone: [facility] 07-17-2022 22:14-0500 Diastolic blood pressure 87 mm[Hg] MD Genesis Reynolds Work Phone: [facility] 07-17-2022 22:14-0500 Heart rate 74 /min MD Genesis Reynolds Work Phone: [facility] 07-17-2022 22:14-0500 Respiratory rate 16 /min MD Genesis Reynolds Work Phone: [facility] 07-17-2022 22:14-0500 SaO2% (BldA) [Mass fraction] 99 % MD Genesis Reynolds Work Phone: [facility] 07-17-2022 22:14-0500 Systolic blood pressure 180 mm[Hg] MD Genesis Reynolds Work Phone: [facility] 02-13-2018 14:12-0400 Body Temperature 98 [degF] Bro Sanford [facility] 02-13-2018 14:12-0400 BP Diastolic 74 mm[Hg] [facility] 02-13-2018 14:12-0400 BP Systolic 113 mm[Hg] [facility] 02-13-2018 14:12-0400 Pulse Oximetry 95 % [facility] 02-13-2018 14:12-0400 Respiratory Rate 18 /min Bro Aj [facility] 02-11-2018 22:00-0400 Pulse (Heart Rate) 73 /min Bro Aj [facility] NEGATED: Highlighted row BMI (Body Mass Index) Bro Sanford [facility] NEGATED: Highlighted row BMI (Body Mass Index) [facility] NEGATED: Highlighted row Height Bro Sanford [facility] NEGATED: Highlighted row Height Bro Sanford [facility] Encounters Encounter Date Encounter Type Care Provider Facility Start: 03-26-2024 End: 03-26-2024 ambulatory [facility] Start: 02-25-2024 End: 02-25-2024 ambulatory [facility] Start: 02-17-2024 End: 02-17-2024 ambulatory [facility] Start: 02-17-2024 End: 02-17-2024 Encounter for other preprocedural examination [facility] Start: 11-10-2023 End: 11-11-2023 ambulatory SUSAN SANDRA [facility] Start: 11-10-2023 End: 11-10-2023 Subsequent hospital visit by physician Bro Sanford MD Work Phone: [facility] Start: 04-26-2023 End: 04-27-2023 [facility] Start: 04-25-2023 End: 04-26-2023 Emergency department patient visit BRO SANFORD [facility] Start: 04-19-2023 ambulatory Danilo Hayes acility:[facility] Start: 01-17-2023 End: 01-17-[address] GENESIS REYNOLDS . Facility:[facility] Start: 12-06-2022 End: 12-06-[address] Other [facility] Other Start: 12-06-[address] [facility] [employer] Start: 11-15-2022 End: 11-17-2022 Evaluation and management of inpatient DR GENESIS REYNOLDS . Facility:[facility] Start: 11-13-2022 End: 11-13-[address] Other [facility] Other Start: 11-13-[address] [facility] Start: 11-05-2022 End: 11-05-[address] Other [facility] Other Start: 11-05-2022 Office outpatient vi sit [address] [facility] Start: 11-01-2022 End: 11-01-2022 ambulatory Genesis Reynolds Facility:[facility] Start: 11-01-2022 End: 11-01-2022 ambulatory MD Genesis Reynolds Work Phone: [facility] Work Phone: Start: 11-01-2022 End: 11-01-2022 Patient encounter procedure MD Genesis Reynolds Work Phone: [facility] Work Phone: Start: 10-26-2022 End: 10-27-[address] GENESIS REYNOLDS . Facility:[facility] Start: 10-25-2022 (PROC) PROCEDURE Benson Oliveros [facility] Start: 10-25-2022 End: 10-26-[address] GENESIS REYNOLDS . [facility] Other Start: 10-18-2022 End: 10-18-[address] Other [facility] Other Start: 10-18-2022 Office outpatient ne w [...] of inpatient MD Genesis Reynolds Work Phone: [facility] Start: 07-17-2022 End: 07-20-2022 observation encounter MD Genesis Reynolds Work Phone: [facility] Work Phone: Start: 07-15-2022 End: 07-16-[address] GENESIS REYNOLDS . Facility:[facility] Start: 06-21-2022 End: 06-22-[address] GENESIS REYNOLDS . Facility:[facility] Start: 05-13-2022 End: 05-16-2022 Evaluation and management of inpatient DR GENESIS REYNOLDS . Facility:[facility] Start: 05-07-[address] GENESIS REYNOLDS . Facili ty:[facility] Start: 12-17-2019 Preoperative state MD Genesis Reynolds Work Phone: [facility] Start: 12-24-2018 End: 12-24-2018 Patient encounter procedure Bro Sanford [facility] Start: 02-08-2018 End: 02-13-2018 Evaluation and management of inpatient Bro Sanford [facility] Start: 01-12-2018 End: 01-17-2018 [facility] Start: 04-02-2017 End: 04-05-2017 [facility] Start: 06-09-2006 End: 07-09-2006 [facility]charged [facility] Start: 04-09-2006 End: 05-09-2006 Discharged Recurring Bro Sanford [facility] Start: 03-09-2006 End: 04-08-2006 [facility] Start: 02-22-2006 End: 03-08-2006 Discharged Recurring Bro Sanford [facility] Start: 02-10-2006 End: 02-14-2006 Evaluation and management [facility] Start: 05-10-2000 End: 06-08-2000 [facility]charged [facility] Start: 04-09-2000 End: 05-09-2000 [facility] Start: 03-09-2000 End: 04-08-2000 Discharged Recurring Bro Sanford [facility] Start: 02-08-2000 End: 03-08-2000 Discharged Recurring Bro Sanford [facility] Start: 01-08-2000 End: 02-07-2000 Discharged Recurring Bro Sanford [facility] Start: 12-09-1999 End: 02-07-2000 Discharged Recurring Bro Sanford [facility] Start: 11-08-1999 End: 12-08-1999 [facility] Start: 10-10-1999 End: 11-07-1999 Discharged Recurring Bro Sanford [facility] Start: 09-09-1999 End: 10-09-1999 [facility] Start: 08-09-1999 End: 10-09-1999 [facility]charged [facility] Start: 07-10-1999 End: 08-08-1999 Discharged [facility] Start: 06-26-1999 End: 07-09-1999 Discharged [facility] Start: 03-29-1998 End: 03-29-1998 [facility] Start: 02-24-1987 End: 02-28-1987 [facility] Start: 12-22-1986 End: 12-23-1986 Evaluation and [facility] Procedures Date Procedure Procedure Detail Performing Clinician Start: 11-10-2023 Urnls dip stick/tabl et reagent auto microscopy Susan 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 Work Phone: Start: 11-01-2022 X-ray of lumbar [...] - Tdap) DTaP/Tdap/Td vaccine (2 - Tdap) [facility] [employer] Start: 04-26-2024 Lipid panel Lipids [facility] Start: 04-25-2024 GFR test (Diabetes, CKD 3-4, OR last GFR 15-59) GFR test (Diabetes, CKD 3-4, OR last GFR 15-59) [facility] Start: 08-05-2023 Annual Wellness Visi t (Medicare) Annual Wellness Visit (Medicare) [facility] Start: 05-10-2023 COVID-19 Vaccine ( season) COVID-19 Vaccine ( season) [facility] Start: 04-09-2023 Influenza vaccination Flu vaccine (# 1) [employer] Start: 07-20-2022 [facility] Start: 07-18-2022 Lipid panel [facility] Start: 07-17-2022 Hospital admission [facility] Start: 07-17-2022 Physical therapy procedure [facility] Start: 07-17-2022 Referral to cafe lead [facility] Start: 07-17-2022 Referral to occupati onal therapist [facility] Start: 07-17-2022 [facility] Start: 07-17-2022 [facility] Start: 2021 Abdominal aortic aneurysm screening AAA screen [facility] Start: 01-24-2021 Pneumococcal 65+ yea rs Vaccine (2 - PPSV23 or PCV20) Pneumococcal 65+ years Vaccine (2 - PPSV23 or PCV20) [facility] [employer] Start: 2016 Respiratory Syncytia l Virus (RSV) or age 60 yrs+ (1 - 1-dose 60+ series) Respiratory Syncytial Virus (RSV) or age 60 yrs+ (1 - 1-dose 60+ series) [facility] Start: 2006 Screening for malign ant neoplasm of lung Low dose CT lung screening &/or counseling [facility] Start: 2006 Shingles vaccine (1 of 2) Shingles vaccine (1 of 2) [facility] Start: 2001 Screening for malign ant neoplasm of colon [facility] Start: 1974 Glaucoma screening Diabetic retinal exam [facility] Start: 1974 Hepatitis C screening Hepatitis C sc reen [facility] Start: 1974 Urine screening for protein Diabetic Alb to Cr ratio (uACR) test [facility] Start: 1968 Depression Screen Depression Screen [facility] Start: 1966 Diabetic foot examination Diabetic foot exam [facility] Start: 1966 Hemoglobin A1c measurement A1C test (Diabetic or Prediabetic) [facility] Bacteria identified in Blood by Culture Blood Culture [facility] Blood culture for bacteria, including anaerobic screen Blood Culture [facility] End: 11-10-2023 Culture, Urine [facility] Work Phone: Comment on above: Once for 1 Occurrenc es starting 11/10/2023 until 11/10/2023 Patient referral [facility] Work Phone: [facility] Payers Date Payer Category Payer Self-pay 1958 Medicare [id number] 1958 Unknown [id number] 1956 Unknown [id number] 2.16.84 [id number] 1956 Unknown [id number] 2.16.84 0.1.025357.3.579.2.593 1956 Unknown [id number] 2.16.84 0.1.174623.3.579.2.593 1956 Unknown [id number] 2.16.84 0.1.551611.3.579.2.593 1956 Unknown [id number] 2.16.84 0.1.319874.3.579.2.593 1956 Unknown [id number] 2.16.84 0.1.051571.3.579.2.593 1956 Unknown [id number] 2.16.84 0.1.260060.3.579.2.593 1956 Unknown [id number] 2.16.84 0.1.137659.3.579.2.593 1956 Unknown [id number] 2.16.84 0.1.521502.3.579.2.593 1956 Unknown [id number] 2.16.84 0.1.435887.3.579.2.593 1956 Unknown [id number] 2.16. 840.1.349435.3.579.2.356 1956 Unknown [id number] 2.16. 840.1.994234.3.579.2.356 1956 Unknown [id number] 2.16. 840.1.585574.3.579.2.356 1956 Unknown [id number] 2.16. 840.1.699998.3.579.2.356 1956 Unknown [id number] 2.16. 840.1.352929.3.579.2.356 1956 Unknown [id number] 2.16. 840.1.297360.3.579.2.356 1956 Unknown [id number] 2.16.8 40.1.718076.3.579.2.173 Unknown [id number] Unknown [facility] [id number] Unknown [id number] 2.16.8 40.1.647954.3.579.2.531 Unknown [id number] 2.16.8 40.1.085902.3.579.2.531 Social History Date Type Detail Facility Start: 07-17-2022 End: 07-18-2022 Tobacco smoking status NHIS Smoker (finding) [facility] Start: 1955 Sex Assigned At Male [facility] Start: 04-25-2023 Sex Assigned At N [facility] Other Start: 12-26-2016 Tobacco smoking stat us UTIS Smokes tobacco daily Drive[facility] History of tobacco use Cigarette Smoker [facility] Start: 12-26-2016 End: 04-25-2023 Cigarettes smoked current (pack per day) - Reported 1.5 [facility] Start: 12-26-2016 Tobacco use and exposure Smokeless tobacco non-user [facility] Start: 04-25-2023 Alcohol intake 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 (finding) [facility] Start: 1955 Sex Assigned At Not on file [facility] Medical Equipment Procedure Code Equipment Code Equipment Origin al Text Equipment Identifier Dates [id number] Start: 12-24-2018 End: 04-11-2019 Glucose test strips Start : 12-24-2018 End: 04-10-2019 Glucose test strips Start : 12-24-2018 End: 04-10-2019 Glucose test strips Start : 12-24-2018 End: 04-10-2019 Goals Date Patient Goal Desired Activity /State Functional Status Date Assessment Result Facility 07-20-2022 Functional status Patient at Baseline [facility] Work Phone: Mental Status Date Assessment Result Facility 07-20-2022 Cognitive function Cognitive Sta tus Patient at Baseline [facility] Work Phone: Clinical Notes 2018 to 03-26-2024 Note Date & Type Note Facility 03-26-2024 Note [facility] Cardiology Clinic Note Chief Complaint: New patient here to establish care. Ref from Dr. Reynolds for abnormal stress test. Patient has hx of CABG at [facility] years ago. Stress test was ordered for pre-op clearance prior to back surgery. His son says he takes Plavix for TIA 3-4 years ago. Patient denies chest pain, SOB, palpitations, and lightheadedness/syncope. HPI: Taylor Mcclellan is a 68 y.o. male With a history of extensive vascular disease including coronary artery bypass graft surgery diagnosed in 2007 s/p single-vessel bypass to an occluded right coronary artery, he has a history of carotid stenosis s/p angioplasty and stent placement and then subsequently balloon angioplasty for in-stent restenosis, he also has PAD s/p R CECILIA stent; he is here for preoperative evaluation for upcoming back surgery. Pertinently, the patient did not have chest pain or other symptoms prior to his cardiac cath and bypass surgery in 2007. He currently has no chest pain, he has no significant shortness of breath. No orthopnea, no paroxysmal nocturnal dyspnea, no lower extremity edema. Cardiology ROS: Review of Systems Musculoskeletal: Positive for arthritis and back pain. All other systems reviewed and are negative. Past Medical History He has a past medical history of Carotid artery stenosis, Coronary artery disease, PVD (peripheral vascular disease) ([facility] [facility]), and Stroke ([facility] Surgical History He has a past surgical history that includes Carotid stent; Cardiac catheterization; Coronary artery bypass graft; and Back surgery. Social History He reports that he has quit smoking. His smoking use included cigarettes. He smoked an average of .5 packs per day. He has never used smokeless tobacco. He reports that he does not currently use alcohol. No history on file for drug use. Family History Family History Problem Relation Name Age of Onset No Known Problems Mother No Known Problems Father Allergies Succinylcholine, Amitriptyline, Citalopram, Fentanyl, and Venlafaxine Medications Current Outpatient Medications: acetaminophen 500 mg capsule, Take 650 mg by mouth every 6 (six) hours if needed., Disp: , Rfl: aspirin 81 mg EC tablet, Take 81 mg by mouth in the morning., Disp: , Rfl: atorvastatin (Lipitor) 80 mg tablet, Take 1 tablet (80 mg) by mouth in the morning., Disp: 30 tablet, Rfl: 0 candesartan (Atacand) 8 mg tablet, Take 1 tablet (8 mg) by mouth in the morning., Disp: 30 tablet, Rfl: 0 carvedilol (Coreg) 12.5 mg tablet, Take 12.5 mg by mouth with breakfast and with evening meal., Disp: , Rfl: celecoxib (CeleBREX) 200 mg capsule, Take 1 capsule by mouth in the morning., Disp: , Rfl: cyclobenzaprine (Flexeril) 10 mg tablet, Take 10 mg by mouth every 8 (eight) hours if needed., Disp: , Rfl: divalproex (Depakote) 500 mg EC tablet, Take 500 mg by mouth in the morning and at bedtime., Disp: , Rfl: docusate sodium (Colace) 100 mg capsule, Take 100 mg by mouth in the morning and at bedtime., Disp: , Rfl: ezetimibe (Zetia) 10 mg tablet, Take 1 tablet (10 mg) by mouth in the morning., Disp: 30 tablet, Rfl: 0 famotidine (Pepcid) 40 mg tablet, Take by mouth in the morning., Disp: , Rfl: gabapentin (Neurontin) 600 mg tablet, Take by mouth in the morning., Disp: , Rfl: mirtazapine (Remeron) 45 mg tablet, Take 45 mg by mouth at bedtime., Disp: , Rfl: tamsulosin (Flomax) 0.4 mg 24 hr capsule, Take 1 capsule by mouth in the morning., Disp: , Rfl: traMADol (Ultram) 50 mg tablet, Take 50 mg by mouth every 6 (six) hours if needed for severe pain (8-10 pain score)., Disp: , Rfl: clopidogrel (Plavix) 75 mg tablet, Take 1 tablet by mouth in the morning., Disp: , Rfl: Last Recorded Vitals BP 124/62 (BP Location: Left arm, Patient Position: Sitting, BP Cuff Size: Large adult) Pulse 62 Resp 18 Ht 1.778 m (5' 10 ) Wt 98.4 kg (216 lb 14.4 oz) SpO2 95% BMI 31.12 kg/m??? Physical Examination: GENERAL: alert and oriented x3, well developed, in no acute distress. HEAD: atraumatic, normocephalic. EYES: DILLAN, EOMI. NECK: trachea midline, no JVD present, no carotid bruits present. CARDIAC: S1, S2 present. RRR. No murmur, rubs, or gallops. RESPIRATORY: CTAB, no increased effort of breathing, no rales, rhonchi, or wheezing. ABDOMEN: soft, nontender, nondistended. EXTREMITIES: no lower extremity edema, peripheral pulses are 2+ bilaterally. No rash/skin discoloration present. NEURO: strength/sensation equal and symmetric in bilateral upper and lower extremities. PSYCH: appropriate mood, affect, and judgement. INVESTIGATIONS: Cardiovascular lab report 02/27/2008 Final impression: Single-vessel coronary artery disease Mild left ventricular systolic dysfunction Patent right internal mammary artery graft to the posterior descending artery Critical right internal carotid artery stenosis Patent right common iliac artery stent Coronary angiography: Left (more content not included)... [facility] 02-25-2024 Note Patient: Taylor briceño Procedure Information Date/Time: 02/25/24 1030 Procedure: Coronary angiography (Left) - andrea Location: [facility] WOUND NURSE 3 / [facility] (Cath) Providers: Festus Castillo MD Clinical information reviewed: Allergies Meds Physical Exam Airway Mallampati: III TM distance: >3 FB Neck ROM: full Cardiovascular - normal exam Rhythm: regular Rate: normal Dental Pulmonary - normal exam Abdominal - normal exam Anesthesia Plan ASA 3 other (Conscious sedation) Anesthetic plan and risks discussed with patient. Use of blood products discussed with patient who consented to blood products. Additional Equipment Requests [facility] 02-17-2024 Note [facility] Cardiology Clinic Note Chief Complaint: New patient here to establish care. Ref from Dr. Reynolds for abnormal stress test. Patient has hx of CABG at [facility] years ago. Stress test was ordered for pre-op clearance prior to back surgery. His son says he takes Plavix for TIA 3-4 years ago. Patient denies chest pain, SOB, palpitations, and lightheadedness/syncope. HPI: Taylor Mcclellan is a 68 y.o. male With a history of extensive vascular disease including coronary artery bypass graft surgery diagnosed in 2007 s/p single-vessel bypass to an occluded right coronary artery, he has a history of carotid stenosis s/p angioplasty and stent placement and then subsequently balloon angioplasty for in-stent restenosis, he also has PAD s/p R CECILIA stent; he is here for preoperative evaluation for upcoming back surgery. Pertinently, the patient did not have chest pain or other symptoms prior to his cardiac cath and bypass surgery in 2007. He currently has no chest pain, he has no significant shortness of breath. No orthopnea, no paroxysmal nocturnal dyspnea, no lower extremity edema. Cardiology ROS: Review of Systems Musculoskeletal: Positive for arthritis and back pain. All other systems reviewed and are negative. Past Medical History He has no past medical history on file. Surgical History He has no past surgical history on file. Social History He has no history on file for tobacco use, alcohol use, and drug use. Family History No family history on file. Allergies Patient has no allergy information on record. Medications No current outpatient medications on file. Last Recorded Vitals BP 102/68 (BP Location: Left arm, Patient Position: Sitting) Pulse 68 Ht 1.778 m (5' 10 ) Wt 94.3 kg (208 lb) SpO2 97% BMI 29.84 kg/m??? Physical Examination: GENERAL: alert and oriented x3, well developed, in no acute distress. HEAD: atraumatic, normocephalic. EYES: DILLAN, EOMI. NECK: trachea midline, no JVD present, no carotid bruits present. CARDIAC: S1, S2 present. RRR. No murmur, rubs, or gallops. RESPIRATORY: CTAB, no increased effort of breathing, no rales, rhonchi, or wheezing. ABDOMEN: soft, nontender, nondistended. EXTREMITIES: no lower extremity edema, peripheral pulses are 2+ bilaterally. No rash/skin discoloration present. NEURO: strength/sensation equal and symmetric in bilateral upper and lower extremities. PSYCH: appropriate mood, affect, and judgement. INVESTIGATIONS: Cardiovascular lab report 02/27/2008 Final impression: Single-vessel coronary artery disease Mild left ventricular systolic dysfunction Patent right internal mammary artery graft to the posterior descending artery Critical right internal carotid artery stenosis Patent right common iliac artery stent Coronary angiography: Left main coronary artery: This segment was normal Left anterior descending coronary artery: This vessel was normal Medial ramus: This vessel was normal Circumflex: This vessel was normal Right coronary artery: This vessel was occluded in its midportion Free right internal mammary artery graft to the posterior descending: This vessel was normal 12-lead EKG 01/20/2024: Sinus rhythm with first-degree AV block Right bundle branch block Left anterior fascicular block Bifascicular block Moderate voltage criteria for LVH, consider normal variant Exercise Cardiolite stress test 02/2024: Transient ischemic dilatation is 1.3. LV EF is 48% Conclusion: 1. Moderately decreased perfusion of the inferior wall with minimal reversibility during rest imaging 2. Global moderate hypokinesis of the left ventricle 3. Abnormal transient ischemic dilatation of the left ventricle 4. Abnormal, low ejection fraction of 48% Assessment: Coronary artery disease, history of coronary artery bypass graft surgery; free right internal mammary artery graft to the right coronary artery Heart failure with mid-range ejection fraction (48%) H/O Carotid stent placement, restenosis and subsequent balloon dilatation Transient ischemic attack 3-4 years ago Peripheral arterial disease, history of right common iliac artery stent Abnormal EKG Abnormal stress test; Inferior perfusion defect, transient ischemic dilatation, reduced ejection fraction Essential hypertension Preoperative evaluation; back surgery Plan: Given the abnormal stress test, and the need for more accurate risk stratification prior to back surgery, I have recommended proceeding with cardiac catheterization. I will not be in the [employer] for the next 3 to 4 weeks; we will schedule the procedure with one of my colleagues in the upcoming week or two: coronary and graft angiography via right common femoral approach. We will order carotid Dopplers given his history of carotid stent, restenosis and subsequent balloon angioplasty Continue current medical therapy in the form of dual antiplatelet therapy, moder (more content not included)... [facility] 11-05-2022 Evaluation note Encounter Date Diagnosis Assessment [...] (ICD-10 - G89.29) Follow up after procedure. [facility] Other 02-09-2023 Evaluation note* Encounter Date Diagnosis [...] cant remember who the surgeon was in [place]. He presents with his today, both the [...] negative findings were considered in medical decision-making. [facility] Other 11-11-2022 Discharge summary Author Sang Bauer [facility] July 20, 2022 6:39pm Note Date/Time July 20, 2022 3:04pm [facility] [address] [place] [address] Discharge Summary Signed Patient: Taylor Mcclellan MR#: [id number] : 1955 Acct:[id number] Age/Sex: 66 / M Adm Date: 2 Loc: Room: [address] [place] [address]: Sang Bauer MD Copies to: [...] affect Discharge Plan Discharge Plan Patient Disposition: Residential Facility Activity: No Activity Restriction Diet: Low-Sodium [...] tablet 75 mg PO DAILY Discontinued hydrocodone-acetaminophen [Foster] 5-325 mg tablet 1 tab PO BID PRN (Reason: Pain) Qty: 0 0RF Other Ambulatory Orders: DME Home Medical Equipment (Routine) Timeframe: [id number] Location: Determined by Patient Ordered By: Sang Bauer Follow Up: Lilia Hopper APRN [Nurse Practitioner] - 08/22/22 10:30 am Documented By: Sang Bauer MD 07/20/22 1504 Signed By: <Electronically signed by Sang Bauer MD> 07/20/22 1839 [facility] Work Phone: 1(848) 592-670311-11-2022 Progress note Author Itzel Adams [facility] July 20, 2022 8:06am Note Date/Time July 20, 2022 8:06am [facility] [address] [place] [address] Cardiology Progress Note Signed Patient: Taylor Mcclellan SR MR#: [id number] : 1955 Acct:[id number] Age/Sex: 66 / M Adm Date: 2 Loc: Room: [address] [place] [address] Type: ADM INOo Attending Dr: Sang Bauer [...] it is a single-vessel bypass done in [place] record is not available patient and his cannot remember which hospital he had his surgery at. He does not follow with cardiology Qualifiers: Coronary Disease-Associated Artery/Lesion type: [place] artery [place] vs. transplanted heart: [place] heart Associated angina: without angina Qualified Code(s): I25.10 - Atherosclerotic heart disease of [place] coronary artery without angina pectoris Code(s): I25.10 - Atherosclerotic heart disease of [place] coronary artery without angina pectoris Status: Acute [...] 3. Stress test negative for ischemia or [place]. Patient can be discharged home cardiac chew Documented By: Itzel Adams MD 07/20/22804 Signed By: <Electronically signed by MD Itzel Adams> 07/20/22805 [facility] Work Phone: 1(911) 270-563711-10-2022 [facility], [facility] 4:57pm Note Date/Time July 19, 2022 4:57pm [facility] [address] [place] [address] Hospitalist Progress Note Signed Patient: Taylor Mcclellan SR MR#: [id number] : 1955 Acct:[id number] Age/Sex: 66 / M Adm Date: 2 Loc: Room: [address] [place] [address] Type: ADM INOo Attending Dr: Sang Bauer [...] Insuln.Pen SUBCUT 07/17/23 21:59 Not Given TID.WM.HS [facility] Protocol Lamotrigine 100 mg 07/18/22 12:00 [...] <Electronically signed by Sang Bauer MD> 07/19/221656 [facility] Work Phone: 1(694) 601-281311-10-2022 Progress note Author Itzel Adams [facility] July 19, 2022 8:35am Note Date/Time July 19, 2022 8:35am [facility] [address] [place] [address] Cardiology Progress Note Signed Patient: Taylor Mcclellan MR#: [id number] : 1955 Acct:[id number] Age/Sex: 66 / M Adm Date: 2 Loc: 3T Room: [address] [place] [address] Type: ADM INOo Attending Dr: Sang Bauer [...] it is a single-vessel bypass done in [place] record is not available patient and his cannot remember which hospital he had his surgery at. He does not follow with cardiology Qualifiers: Coronary Disease-Associated Artery/Lesion type: [place] artery [place] vs. transplanted heart: [place] heart Associated angina: without angina Qualified Code(s): I25.10 - Atherosclerotic heart disease of [place] coronary artery without angina pectoris Code(s): I25.10 - Atherosclerotic heart disease of [place] coronary artery without angina pectoris Status: Acute [...] <Electronically signed by MD Itzel Adams> 07/19/22834 [facility] Work Phone: 1([phone]) 659-221211-09-2022 Progress note Author Sang Bauer [facility] July 18, 2022 3:24pm Note Date/Time July 18, 2022 3 :24pm [facility] [address] [place] [address] Hospitalist Progress Note Signed Patient: Taylor Mcclellan MR#: [id number] : 1955 Acct:[id number] Age/Sex: 66 / M Adm Date: 2 Loc: Room: [address] [place] [address] Type: ADM INOo Attending Dr: Sang Bauer [...] Insuln.Pen SUBCUT 07/17/23 21:59 Not Given TID.WM.HS [facility] Protocol Lamotrigine 100 mg 07/18/22 12:00 [...] 11:15 Brexpiprazole [Rexulti] PO 07/18/23 11:14 1XD [facility] Ondansetron HCl 4 mg 07/17/22 18:33 [...] signed by Sang Bauer MD> 07/18/22 1524 [facility] Work Phone: [phone]) 775-403811-09-2022 History and physical note Author Sang Bauer [facility] July 18, 2022 3:22pm Note Date/Time July 17, 2022 6 :41pm [facility] [address] [place] [address] Hospitalist H&P Signed Patient: Taylor Mcclellan SR MR#: [id number] : 1955 Acct:[id number] Age/Sex: 66 / M Adm Date: 2 Loc: Room: [address] [place] [address] Type: ADM INOo Attending Dr: Sang Bauer [...] at home. Reportedly patient was taken to [facility] couple days ago when he was [...] his live in a mobile home in [place]. Meds Medications and Allergies Allergies chlordiazepoxide [From [...] 07/17/22] hydrocodone 5 mg-acetaminophen 325 mg tablet (Foster) 1 tab PO BID PRN Pain #0 [...] % (Auto) 29.5 % (.) 07/17/22 15:44 [place] % (Auto) 5.4 % (.) 07/17/22 15:44 Eos % (Auto) 0.7 % (.) 07/17/22 15:44 Baso % (Auto) 1.0 % (.) 07/17/22 15:44 Neut # (Auto) 4.9 x10E3/uL (1.8-7.7) 07/17/22 15:44 Lymph # (Auto) 2.3 x10E3/uL (1.00-4.8) 07/17/22 15:44 [place] # (Auto) 0.4 x10E3/uL (0.0-0.8) 07/17/22 15:44 [...] code Documented By: Sang Bauer MD 07/17/22 1832 Signed By: <Electronically signed by Sang Bauer MD> 07/18/22 9883 [facility] Work Phone: [phone]) 308-378611-09-2022 Consult note Author Itzel Adams [facility] July 18, 2022 11:46am Note Date/Time July 18, 2022 1 1:43am [facility] [address] [place] [address] Cardiology Consult Note Signed Patient: Taylor Mcclellan SR MR#: [id number] : 1955 Acct:[id number] Age/Sex: 66 / M Adm Date: 2 Loc: Room: [address] [place] [address] Type: ADM INOo Attending Dr: Sang Bauer MD Copies to: MD Genesis Goetz MD Mourhaf A Traboulssi, MD~ Cardiology HPI History of Present Illness Consult Date: 07/18/22 Reason for Consult: Chest pain HPI: Mr. Mcclellan is a 66 year old male with known history of coronary artery disease and prior bypass surgery done in [place]. No records available. Patient report to have [...] his live in a mobile home in [place]. Meds Medications and Allergies Allergies chlordiazepoxide [From [...] 07/17/22] hydrocodone 5 mg-acetaminophen 325 mg tablet (Foster) 1 tab PO BID PRN Pain #0 [...] x10E3/uL Lymph # (Auto) 2.3 (1.00-4.8) x10E3/uL [place] # (Auto) 0.4 (0.0-0.8) x10E3/uL Eos # [...] @ 100 mls/hr IV ONCE ONE Rx #:[id number] Oral 0 / 0 50 / 50 [...] it is a single-vessel bypass done in [place] record is not available patient and his cannot remember which hospital he had his surgery at. He does not follow with cardiology Qualifiers: Coronary Disease-Associated Artery/Lesion type: [place] artery [place] vs. transplanted heart: [place] heart Associated angina: without angina Qualified Code(s): I25.10 - Atherosclerotic heart disease of [place] coronary artery without angina pectoris Code(s): I25.10 - Atherosclerotic heart disease of [place] coronary artery without angina pectoris (3) Hx [...] signed by MD Itzel Adams> 07/18/22 1146 [facility] Work Phone: 1(656) 283-876111-08-2022 History and physical note Author Sang Bauer [facility] July 18, 2022 3:22pm Note Date/Time July 17, 2022 6 :41pm [facility] [address] [place] [address] Hospitalist H&P Signed Patient: Taylor Mcclellan MR#: [id number] : 1955 Acct:[id number] Age/Sex: 66 / M Adm Date: 2 Loc: Room: [address] [place] [address] Type: ADM INOo Attending Dr: Sang Bauer [...] at home. Reportedly patient was taken to [facility] couple days ago when he was [...] his live in a mobile home in [place]. Meds Medications and Allergies Allergies chlordiazepoxide [From [...] 07/17/22] hydrocodone 5 mg-acetaminophen 325 mg tablet (Foster) 1 tab PO BID PRN Pain #0 [...] % (Auto) 29.5 % (.) 07/17/22 15:44 [place] % (Auto) 5.4 % (.) 07/17/22 15:44 Eos % (Auto) 0.7 % (.) 07/17/22 15:44 Baso % (Auto) 1.0 % (.) 07/17/22 15:44 Neut # (Auto) 4.9 x10E3/uL (1.8-7.7) 07/17/22 15:44 Lymph # (Auto) 2.3 x10E3/uL (1.00-4.8) 07/17/22 15:44 [place] # (Auto) 0.4 x10E3/uL (0.0-0.8) 07/17/22 15:44 [...] <Electronically signed by Sang Bauer MD> 07/18/22 [facility] Work Phone: [phone] 188-390301-07-2019 Consult note Author Itzel Adams [facility] July 18, 2022 11:46am Note Date/Time July 18, 2022 1 1:43am [facility] [address] [place] [address] Cardiology Consult Note Signed Patient: Taylor Mcclellan MR#: [id number] : 1955 Acct:[id number] Age/Sex: 66 / M Adm Date: 2 Loc: 3T Room: [address] [place] [address] Type: ADM INOo Attending Dr: Sang Bauer MD Copies to: MD Genesis Goetz MD Mourhaf A TraboulssiMD~ Cardiology HPI History of Present Illness Consult Date: 07/18/22 Reason for Consult: Chest pain HPI: Mr. Mccllelan is a 66 year old male with known history of coronary artery disease and prior bypass surgery done in [place]. No records available. Patient report to have [...] his live in a mobile home in [place]. Meds Medications and Allergies Allergies chlordiazepoxide [From [...] 07/17/22] hydrocodone 5 mg-acetaminophen 325 mg tablet (Foster) 1 tab PO BID PRN Pain #0 [...] x10E3/uL Lymph # (Auto) 2.3 (1.00-4.8) x10E3/uL [place] # (Auto) 0.4 (0.0-0.8) x10E3/uL Eos # [...] @ 100 mls/hr IV ONCE ONE Rx #:[id number] Oral 0 / 0 50 / 50 [...] it is a single-vessel bypass done in [place] record is not available patient and his cannot remember which hospital he had his surgery at. He does not follow with cardiology Qualifiers: Coronary Disease-Associated Artery/Lesion type: [place] artery [place] vs. transplanted heart: [place] heart Associated angina: without angina Qualified Code(s): I25.10 - Atherosclerotic heart disease of [place] coronary artery without angina pectoris Code(s): I25.10 - Atherosclerotic heart disease of [place] coronary artery without angina pectoris (3) Hx [...] signed by MD Itzel Adams> 07/18/22 1146 [facility] Work Phone: Discharge summary Author Sang Bauer [facility] July 20, 2022 6:39pm Note Date/Time July 20, 2022 3:04pm [facility] [address] [place] [address] Discharge Summary Signed Patient: Taylor Mcclellan MR#: [id number] : 1955 Acct:[id number] Age/Sex: 66 / M Adm Date: 2 Loc: Room: [address] [place] [address]: Sang Bauer MD Copies to: [...] affect Discharge Plan Discharge Plan Patient Disposition: Residential Facility Activity: No Activity Restriction Diet: Low-Sodium [...] tablet 75 mg PO DAILY Discontinued hydrocodone-acetaminophen [Foster] 5-325 mg tablet 1 tab PO BID PRN (Reason: Pain) Qty: 0 0RF Other Ambulatory Orders: [facility] Home Medical Equipment (Routine) Timeframe: 20220720 Location: Determined by Patient Ordered By: Sang Bauer Follow Up: Lilia Hopper APRN [Nurse Practitioner] - 08/22/22 10:30 am Documented By: Sang Bauer MD 07/20/22 3197 Signed By: <Electronically signed by Sang Bauer MD> 07/20/22 6017 [facility] Work Phone: Evaluation note* Diagnosis Onset Date Resolution Status Chest pain acute Coronary artery disease acut e Generalized weakness acute Hx of CABG acute Diabetes mellitus chronic HTN (hypertension) chronic [facility] Work Phone: Evaluation note* Diagnosis Onset Date Resolution Status Bipolar 1 disorder, depressed, severe acute Chest pain acute Coronary artery disease acut e Generalized weakness acute Hx of CABG acute Chronic back pain chronic Diabetes mellitus chronic HTN (hypertension) chronic [facility] Work Phone: Evaluation noteNo assessment information available [facility] Work Phone: Evaluation noteNo InformationNortExcela [facility] Daily [facility] Other History general Narrative - Reported* Type Description Date Medical History CABG Medical History BPH Medical History HTN Medical History Diabetes Medical History HLD Medical History lumbosacral spondylosis Medical History lumbar neuritis Medical History disorder of sacrum Surgical History previous back surgery Surgical History heart valve replacement Surgical History CABG Hospitalization History see above [facility] Other Hospital Discharge instructions Additional Instructions SNF TO MANAGE: PT/OT to eval and treat Monitor VS per protocol--HTN Monitor FSBS Maintain high risk fall precautions Care to be managed by by [facility] Work Phone: Progress note Author Sang Bauer [facility] July 18, 2022 3:24pm Note Date/Time July 18, 2022 3 :24pm [facility] [address] [place] [address] Hospitalist Progress Note Signed Patient: Taylor Mcclellan SR MR#: [id number] : 1955 Acct:[id number] Age/Sex: 66 / M Adm Date: 2 Loc: Room: [address] [place] [address] Type: ADM INOo Attending Dr: Sang Bauer [...] Insuln.Pen SUBCUT 07/17/23 21:59 Not Given TID.WM.HS [facility] Protocol Lamotrigine 100 mg 07/18/22 12:00 [...] 11:15 Brexpiprazole [Rexulti] PO 07/18/23 11:14 1XD [facility] Ondansetron HCl 4 mg 07/17/22 18:33 [...] signed by Sang Bauer MD> 07/18/22 1524 [facility] Work Phone: Progress note Author Itzel Adams [facility] July 19, 2022 8:35am Note Date/Time July 19, 2022 8:35am [facility] [address] [place] [address] Cardiology Progress Note Signed Patient: Taylor Mcclellan MR#: [id number] : 1955 Acct:[id number] Age/Sex: 66 / M Adm Date: 2 Loc: Room: [address] [place] [address] Type: ADM INOo Attending Dr: Sang Bauer [...] it is a single-vessel bypass done in [place] record is not available patient and his cannot remember which hospital he had his surgery at. He does not follow with cardiology Qualifiers: Coronary Disease-Associated Artery/Lesion type: [place] artery [place] vs. transplanted heart: [place] heart Associated angina: without angina Qualified Code(s): I25.10 - Atherosclerotic heart disease of [place] coronary artery without angina pectoris Code(s): I25.10 - Atherosclerotic heart disease of [place] coronary artery without angina pectoris Status: Acute [...] <Electronically signed by MD Itzel Adams> 07/19/22834 [facility] Work Phone: Progress note Author Sang Baeur [facility] July 19, 2022 4:57pm Note Date/Time July 19, 2022 4:57pm [facility] [address] [place] [address] Hospitalist Progress Note Signed Patient: Taylor Mcclellan SR MR#: [id number] : 1955 Acct:[id number] Age/Sex: 66 / M Adm Date: 2 Loc: Room: [address] [place] [address] Type: ADM INOo Attending Dr: Sang Bauer [...] Insuln.Pen SUBCUT 07/17/23 21:59 Not Given TID.WM.[facility] Protocol Lamotrigine 100 mg 07/18/22 12:00 [...] code Documented By: Sang Bauer MD 07/19/22 8513 Signed By: <Electronically signed by Sang Bauer MD> 07/19/22 9467 [facility] Work Phone: Progress note Author Itzel Adams [facility] July 20, 2022 8:06am Note Date/Time July 20, 2022 8:06am [facility] [address] [place] [address] Cardiology Progress Note Signed Patient: Taylor Mcclellan SR MR#: [id number] : 1955 Acct:[id number] Age/Sex: 66 / M Adm Date: 2 Loc: 3T Room: [address] [place] [address] Type: ADM INOo Attending Dr: Sang Bauer [...] it is a single-vessel bypass done in [place] record is not available patient and his cannot remember which hospital he had his surgery at. He does not follow with cardiology Qualifiers: Coronary Disease-Associated Artery/Lesion type: [place] artery [place] vs. transplanted heart: [place] heart Associated angina: without angina Qualified Code(s): I25.10 - Atherosclerotic heart disease of [place] coronary artery without angina pectoris Code(s): I25.10 - Atherosclerotic heart disease of [place] coronary artery without angina pectoris Status: Acute [...] 3. Stress test negative for ischemia or [place]. Patient can be discharged home cardiac chew Documented By: Itzel Adams MD 07/20/22 0805 Signed By: <Electronically signed by MD Itzel Adams> 07/20/22 08 [facility] Work Phone: Summary Purpose Family History [...] section and content) DATE CREATED AUTHOR 10/15/2019 [facility] DATE CREATED AUTHOR AUTHOR'S ORGANIZ ATION 11/29/2021 [facility] DATE CREATED AUTHOR AUTHOR'S ORGANIZ ATION 01/21/2023 [facility] DATE CREATED AUTHOR AUTHOR'S ORGANIZ ATION 01/23/2023 [facility] DATE CREATED AUTHOR AUTHOR'S ORGANIZ ATION 08/18/2023 [facility] DATE CREATED AUTHOR AUTHOR'S ORGANIZ ATION 11/11/2023 [facility] DATE CREATED AUTHOR AUTHOR'S ORGANIZ ATION 03/30/2024 [facility] Care Teams (unrecognized sec tion and [...] Ramirez MD Other Provider Active Pily Winslow [facility] Other Provider Active Adelaide Leonardo MD [...] Genesis Reynolds MD Primary Care Provider Active Benson Lane MD Attending Provider 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 [employer] provides no warranty or guarantee of the accuracy or completeness of information in this document.
--- NOTE | 2024-04-29 17:57 | ECG_ITS ---
The [facility] Test Date: 2024-04-29 Pat Name: TAYLOR MCCLELLAN Department: Room: - Gender: Male Surgery Technician: : 1955 Requested By: GENESIS REYNOLDS Order Number: [id number] Reading MD: CHAR CUNNINGHAM Measurements Intervals [place]esta Rate: 69 P: 229 NV: 246 QRS: 240 QRSD: 148 T: 159 QT: 416 QTc: 435 Interpretive Statements 1200 Atrial rhythm 2231 First degree AV block 2450 Right bundle branch block 3534 Lateral myocardial infarction, age undetermined 4164 Twave abnormality, possible anterior ischemia 0101 Possible arm leads reversed, check lead requested 4250 abnormal ECG Electronically Signed On 05-05-2024 22:18:09 EDT by CHAR CUNNINGHAM
--- NOTE | 2024-04-29 18:02 | CT_ITS ---
The [address] [address] Patient Name: TAYLOR MCCLELLAN MRN: [id number] date: 1955 Sex: M Assigned Patient Location: ER Current Patient Location: ER Accession/Order Number: [id number] Exam Date: 04/29/2024 18:35 Report Date: 04/29/2024 19:34 At the request of: NIKUNJ DICKERSON Procedure: CT head/brain wo con EXAM: CT head/brain wo con HISTORY: tia COMPARISON: CT brain 02/15/2024. TECHNIQUE: Axial CT scans through the head were obtained without IV contrast administration. Dose reduction techniques were achieved by using: automated exposure control and/or adjustment of mA and /or kV according to patient size and/or use of iterative reconstruction technique. FINDINGS: There is no evidence of acute intracranial hemorrhage or abnormal extra-axial fluid collection. No mass effect or midline shift is seen. There is no evidence of large acute territorial infarction. There is no hydrocephalus. There are remote lacunar infarcts in bilateral basal ganglia, right thalamus and right centrum semiovale. There is age appropriate moderate cerebral atrophy. To the limit of CT, the posterior fossa appears unremarkable. No definite acute fracture is identified. Redemonstrated is a 1.2 cm scalp nodule with internal calcifications at the vertex, likely represent an epidermal inclusion cyst. The visualized orbits show no abnormality. The visualized paranasal sinuses show no air-fluid level. Mastoid air cells are clear. CT/CT head/brain wo con IMPRESSION: No CT evidence of acute intracranial abnormality. If there is sufficient clinical concern for acute brain parenchymal pathology, consider MRI for further evaluation. Stable chronic findings, as described. Electronically authenticated by: ANNABEL SRIVASTAVA Date: 04/29/2024 19:34
--- NOTE | 2024-04-29 18:04 | XR_ITS ---
The [address] [address] Patient Name: TAYLOR MCCLELLAN MRN: [id number] date: 1955 Sex: M Assigned Patient Location: ER Current Patient Location: ER Accession/Order Number: [id number] Exam Date: 04/29/2024 18:35 Report Date: 04/29/2024 19:43 At the request of: NIKUNJ DICKERSON Procedure: XR chest 1V EXAM: XR chest 1V at 1837 hours HISTORY: tia COMPARISON: 01/20/2024 TECHNIQUE: AP upright portable chest x-ray FINDINGS: No acute infiltrate, effusion or pneumothorax is identified. Slight prominence of interstitial markings are again noted. The heart is at the upper limits of normal in size without vascular congestion. Multiple sternal wire sutures are present. The osseous structures are grossly intact. XR/XR chest 1V IMPRESSION: No acute infiltrate or evidence of cardiac decompensation. Mild chronic changes are noted. The overall appearance of the chest is unchanged Electronically authenticated by: MAURIZIO TORIBIO Date: 04/29/2024 19:43
[2024-04-29 18:34] LABS: Basophils Absolute Auto 0.1 10^3/uL (0.0-0.1); Basophils Percent Auto 0.7 % (0.2-2.0); Eosinophils Absolute Auto 0.2 10^3/uL (0.0-0.7); Eosinophils Percent Auto 2.2 % (0.9-7.0); Hematocrit 38.3 % (42.0-54.0); Hemoglobin 12.9 g/dL (14.0-18.0); Immature Granulocytes Abs Auto 0.02 10^3/uL (0.00-0.03); Immature Granulocytes Pct Auto 0.2 % (0.0-0.5); Lymphocytes Absolute Auto 2.5 10^3/uL (1.2-3.8); Lymphocytes Percent Auto 30.8 % (20.5-60.0); Mean Corpuscular HGB Conc 33.7 g/dL (29.9-35.2); Mean Corpuscular Hemoglobin 31.1 pg (25.9-34.0); Mean Corpuscular Volume 92.3 fL (80.0-94.0); Mean Platelet Volume 11.8 fL (9.5-13.5); Monocytes Absolute Auto 0.7 10^3/uL (0.3-0.8); Monocytes Percent Auto 8.6 % (1.7-12.0); Neutrophils Absolute Auto 4.6 10^3/uL (1.4-6.5); Neutrophils Percent Auto 57.5 % (43.0-75.0); Platelet Count 220 10^3/uL (150-450); Red Blood Count 4.15 10^6/uL (4.70-6.10); Red Cell Distribution Width 13.6 % (11.0-15.0)
[2024-04-29 18:47] LABS: INR 1.09; Prothrombin Time 11.5 sec (9.0-11.6)
[2024-04-29 18:49] LABS: Alanine Aminotransferase 23 U/L (16-63); Albumin Globulin Ratio 0.9; Albumin Level 3.1 g/dL (3.4-5.0); Alkaline Phosphatase 87 U/L (46-116); Anion Gap 9.7; Aspartate Amino Transferase 14 U/L (15-37); BUN Creatinine Ratio 16.4; Bilirubin Total 0.4 mg/dL (0.2-1.0); Calcium 8.7 mg/dL (8.5-10.1); Carbon Dioxide 29.7 mmol/L (21.0-32.0); Chloride 106 mmol/L (98-107); Estimated GFR (African America >60 (>=60); Estimated GFR (Non-African Ame >60 (>=60); Globulin 3.5 g/dL; Glucose 105 mg/dL (74-106); Potassium 4.4 mmol/L (3.5-5.1); Sodium 141 mmol/L (136-145); Total Protein 6.6 g/dL (6.4-8.2)
[2024-04-29 18:51] LABS: Troponin I High Sensitivity 4.5 pg/mL (4.0-76.1)
--- NOTE | 2024-04-29 18:55 | ED.GENADUL1 ---
HPI HPI - General Adult General Chief complaint: Neuro Symptoms/Deficit Stated complaint: Altered Mental Status Time Seen by Provider: 04/29/24 17:22 Source: patient and caregiver Mode of arrival: ambulance Limitations: no limitations History of Present Illness HPI narrative: Patient is a 68-year-old male who is presenting to the ER today with chief complaint of having difficult time holding a fork, dropping into his food and not being able to stick out his tongue ain't answering questions inappropriately at the nursing facility today. They spoke to patient's guardian, he spoke to Dr. Jiang, it is recommended that patient come to the ER for evaluation and testing. Patient currently has no symptoms. He has no facial droop, tongue is midline. He has no difficulty with strength to his bilateral hands and feet. Patient NIH 0. Patient has no strokelike signs or symptoms. Patient was sent to the ER for stroke evaluation per PCP. Patient currently has no symptoms. No headache, chest pain, shortness of breath. Patient has not noticed any deficits to his arms or legs. Patient states that he is not sure why he is here in the ER, All systems are negative except as noted/marked. All systems reviewed and otherwise negative. Nurses note and vital signs reviewed and patient is not hypoxic. General: The patient appears well and in no apparent distress. Patient is resting comfortably on cart. Patient is not toxic, lethargic, or listless Skin: Warm, dry, no pallor noted. There is no rash noted. No petechiae, purpura. Head: Normocephalic, atraumatic Eye: Normal conjunctiva, no drainage, EOMI. PERRL Ears, Nose, Mouth, and Throat: oral mucosa is moist. Nares patent. Mouth without vesicles. Cardiovascular: Regular Rate and Rhythm, no murmur, gallop, rub Respiratory: Patient is in no distress, no accessory muscle use, lungs are clear to auscultation, no wheezing, rales or rhonchi Back: non-tender, no CVA tenderness bilaterally to percussion. No CT LS midline pain GI: no tenderness to palpation, no masses appreciated. No rebound, guarding, or rigidity noted. No distention Musculoskeletal: Patient has full range of motion of all of the extremities, no motor, sensory, or focal neurological deficits Neurological: A&O x4, normal speech; NIH 0, tongue midline, no facial droop. Equal strength to bilateral hands and feet bilateral. No strokelike signs or symptoms. Psychiatric: Cooperative Related Data Home Medications ?Medication ?Instructions ?Recorded ?Confirmed aspirin 81 mg capsule 81 mg PO DAILY 03/14/23 04/14/24 carvedilol 12.5 mg tablet (Coreg) 12.5 mg PO BID 03/14/23 04/14/24 clopidogrel 75 mg tablet 75 mg PO QDAY 03/14/23 04/14/24 mirtazapine 45 mg tablet 45 mg PO DAILY 11/05/23 04/14/24 atorvastatin 80 mg tablet 80 mg PO DAILY 04/14/24 04/14/24 candesartan 8 mg tablet 8 mg PO DAILY 04/14/24 04/14/24 cyclobenzaprine 10 mg tablet 10 mg PO TID PRN muscle spasm 04/14/24 04/14/24 divalproex 500 mg tablet,delayed 500 mg PO Q12H 04/14/24 04/14/24 release ezetimibe 10 mg tablet 10 mg PO DAILY 04/14/24 04/14/24 famotidine 40 mg tablet 40 mg PO DAILY 04/14/24 04/14/24 gabapentin 600 mg tablet 600 mg PO QID 04/14/24 04/14/24 primidone 50 mg tablet 50 mg PO DAILY 04/14/24 04/14/24 tamsulosin 0.4 mg capsule 0.4 mg PO DAILY 04/14/24 04/14/24 tramadol 50 mg tablet 50 mg PO QID PRN pain 04/14/24 04/14/24 Previous Rx's ?Medication ?Instructions ?Recorded celecoxib 200 mg capsule 200 mg PO DAILY #30 caps 03/15/23 Allergies Allergy/AdvReac Type Severity Reaction Status Date / Time amitriptyline Allergy Verified 11/05/23 23:51 citalopram Allergy Verified 11/05/23 23:51 fentanyl Allergy Verified 11/05/23 23:51 simvastatin [From Zocor] Allergy Verified 11/05/23 23:51 succinylcholine Allergy Verified 11/05/23 23:51 venlafaxine [From Effexor] Allergy Verified 11/05/23 23:51 Opioid HPI Opioid Management Most Recent Opioid Data: Last Pain Scale 8 04/15/24 11:00 Last ORT Total Score 0 04/14/24 15:59 Last ORT Risk Category Low Risk 04/14/24 15:59 Ur Phencyclidine Scrn Negative (NEGATIVE) 11/05/23 16:26 PFSH PFSH Medical History (Updated 04/29/24 @ 19:52 by Dwaine Parikh MD) Ambulatory dysfunction ?R26.2 - Difficulty in walking, not elsewhere classified (ICD-10) Fall ?W19.XXXA - Unspecified fall, initial encounter (ICD-10) Chronic low back pain with bilateral sciatica ?M54.41 - Lumbago with sciatica, right side (ICD-10) ?M54.42 - Lumbago with sciatica, left side (ICD-10) ?G89.29 - Other chronic pain (ICD-10) Altered mental status ?R41.82 - Altered mental status, unspecified (ICD-10) Chronic back pain ?M54.9 - Dorsalgia, unspecified (ICD-10) ?G89.29 - Other chronic pain (ICD-10) Orthostatic dizziness ?R42 - Dizziness and giddiness (ICD-10) Accidental fall ?W19.XXXA - Unspecified fall, initial encounter (ICD-10) CAD (coronary artery disease) ?I25.10 - Atherosclerotic heart disease of [place] coronary artery without angina pectoris (ICD-10) Back pain ?M54.9 - Dorsalgia, unspecified (ICD-10) 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 - Fusion of spine, lumbar region (ICD-10) High cholesterol ?E78.00 - Pure hypercholesterolemia, unspecified (ICD-10) Hypertension ?I10 - Essential (primary) hypertension (ICD-10) IDDM (insulin dependent diabetes mellitus) Restless leg syndrome ?G25.81 - Restless legs syndrome (ICD-10) Suicidal ideation ?R45.851 - Suicidal ideations (ICD-10) Sleep apnea ?G47.30 - Sleep apnea, unspecified (ICD-10) Anxiety ?F41.9 - Anxiety disorder, unspecified (ICD-10) Metabolic encephalopathy ?G93.41 - Metabolic encephalopathy (ICD-10) Depression ?F32.A - Depression, unspecified (ICD-10) Acute renal failure ?N17.9 - Acute kidney failure, unspecified (ICD-10) Altered mental status ?R41.82 - Altered mental status, unspecified (ICD-10) Surgical History (Updated 03/14/23 @ 23:37 by Christiana Hou) S/P CABG (coronary artery bypass graft) ?Z95.1 - Presence of aortocoronary bypass graft (ICD-10) History of heart artery stent ?Z95.5 - Presence of coronary angioplasty implant and graft (ICD-10) Family History (Updated 03/14/23 @ 23:00 by Taniya Mercado) Mother Family history of myocardial infarction Social History (Updated 03/14/23 @ 23:05 by Taniya Mercado) Within the past year, how often did you have a drink containing alcohol: never Score interpretation: A score less than 4 is consistent with normal alcohol consumption. 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 Known occupational exposures/hazards: No Highest level of school completed/degree received: some college, no degree Do you want help with school or training: No Are you now , , , , never or living with a partner: In a typical week, how many times do you talk on the telephone with family, friends, or neighbors: never How often do you get together with friends or relatives: never How often do you attend taoist or religion services: never Do you belong to any clubs or organizations such as taoist groups unions, fraternal or athletic groups, or school groups: no Total score: 1 Score interpretation: A score of less than or equal to 1 indicates the most socially isolated. Little interest or pleasure in doing things: nearly every day Feeling down, depressed, or hopeless: several days Feel stressed/tense/nervous/anxious/difficulty sleeping: very much Life stressors: recent of family or friend Life stressor details: mother and step father a year ago Due to disability, difficulty making decisions: No Do you think of yourself as: straight/heterosexual Gender Identity: male Exam Constitutional Vital Signs, click to edit/add: Last Vital Signs Temp 97.9 F 04/29/24 17:12 Pulse 68 04/29/24 19:30 Resp 13 04/29/24 19:30 BP 106/72 04/29/24 19:30 Pulse Ox 95 04/29/24 19:30 O2 Del Method Room Air 04/29/24 17:12 Course Vital Signs Vital signs: Vital Signs Temperature 97.9 F 04/29/24 17:12 Pulse Rate 73 04/29/24 17:12 Respiratory Rate 18 04/29/24 17:12 Blood Pressure 129/91 04/29/24 17:12 Pulse Oximetry 97 04/29/24 17:12 Oxygen Delivery Method Room Air 04/29/24 17:12 Temperature 97.9 F 04/29/24 17:12 Pulse Rate 68 04/29/24 19:30 Respiratory Rate 13 04/29/24 19:30 Blood Pressure 106/72 04/29/24 19:30 Pulse Oximetry 95 04/29/24 19:30 Oxygen Delivery Method Room Air 04/29/24 17:12 Medical Decision Making MDM Narrative Medical decision making narrative: Patient had no strokelike signs or symptoms in the ER. Patient had a extremely large bowel movement in the ER. Patient had CT of the brain, chest x-ray, lab work done. Lab work is showing no acute findings. Official results of the chest x-ray and CT of the brain were pending at transition to Dr. Doran at 1900 for reevaluation of the test results, patient, speaking to Dr. Jiang or guardian, and most likely sending patient back to nursing facility. Lab Data Labs: Lab Results 04/29/24 04/29/24 Range/Units 17:19 18:27 WBC 8.0 (4.0-11.0) 10^3/uL RBC 4.15 L (4.70-6.10) 10^6/uL Hgb 12.9 L (14.0-18.0) g/dL Hct 38.3 L (42.0-54.0) % MCV 92.3 (80.0-94.0) fL MCH 31.1 (25.9-34.0) pg MCHC 33.7 (29.9-35.2) g/dL RDW 13.6 (11.0-15.0) % Plt Count 220 (150-450) 10^3/uL MPV 11.8 (9.5-13.5) fL Neut % (Auto) 57.5 (43.0-75.0) % Lymph % (Auto) 30.8 (20.5-60.0) % [place] % (Auto) 8.6 (1.7-12.0) % Eos % (Auto) 2.2 (0.9-7.0) % Baso % (Auto) 0.7 (0.2-2.0) % Neut # (Auto) 4.6 (1.4-6.5) 10^3/uL Lymph # (Auto) 2.5 (1.2-3.8) 10^3/uL [place] # (Auto) 0.7 (0.3-0.8) 10^3/uL Eos # (Auto) 0.2 (0.0-0.7) 10^3/uL Baso # (Auto) 0.1 (0.0-0.1) 10^3/uL Abs Immat Gran (auto) 0.02 (0.00-0.03) 10^3/uL Imm/Tot Granulo (auto) 0.2 (0.0-0.5) % PT 11.5 (9.0-11.6) sec INR 1.09 Sodium 141 (136-145) mmol/L Potassium 4.4 (3.5-5.1) mmol/L Chloride 106 (98-107) mmol/L Carbon Dioxide 29.7 (21.0-32.0) mmol/L Anion Gap 9.7 BUN 19.0 H (7.0-18.0) mg/dL Creatinine 1.16 (0.70-1.30) mg/dL Est GFR ( Amer) >60 (>=60) Est GFR (Non-Af Amer) >60 (>=60) BUN/Creatinine Ratio 16.4 Glucose 105 (74-106) mg/dL Calcium 8.7 (8.5-10.1) mg/dL Total Bilirubin 0.4 (0.2-1.0) mg/dL AST 14 L (15-37) U/L ALT 23 (16-63) U/L Alkaline Phosphatase 87 (46-116) U/L Troponin I High Sens 4.5 (4.0-76.1) pg/mL Total Protein 6.6 (6.4-8.2) g/dL Albumin 3.1 L (3.4-5.0) g/dL Globulin 3.5 g/dL Albumin/Globulin Ratio 0.9 POC Glucose 127 H (74-106) mg/dL ECG Data Attestation: I personally reviewed and interpreted this ECG as follows: (Normal sinus rhythm at 69 beats a minute. Left axis deviation. Artifact noted. Right bundle branch block noted. LA interval 246, first-degree AV block. QTc of 435) Discharge Plan Discharge Patient Disposition: Still a Patient
--- NOTE | 2024-04-29 20:42 | CT_ITS ---
The [address] [address] Patient Name: TAYLOR MCCLELLAN MRN: [id number] date: 1955 Sex: M Assigned Patient Location: ER Current Patient Location: Accession/Order Number: [id number] Exam Date: 04/29/2024 21:10 Report Date: 04/29/2024 22:34 At the request of: AUBREY POON Procedure: CT angio neck EXAM: CT angio head, CT angio neck HISTORY: Intermittent neural deficits. COMPARISON: Head CT on 04/29/2024. CT of the chest on 04/14/2024 and 11/05/2023. TECHNIQUE: Following IV administration of iodinated contrast, axial CT scans of the head and neck were obtained. MPR and MIP images images were obtained. In addition, 3-D reconstruction images were generated using a separate independent workstation. Carotid stenosis is based on NASCET criteria. Dose reduction techniques were achieved by using automated exposure control and/or adjustment of mA and/or kV according to patient size and/or the use of an iterative reconstruction technique. FINDINGS: CTA OF THE HEAD: No major branch occlusion or significant intracranial stenosis. 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 Hypoplastic right A1. No aneurysm. Dural venous sinuses are patent. CTA OF THE NECK: No abnormal soft tissue mass in the neck. The visualized lungs show mild centrilobular emphysema. Osseous structures are intact. A small-moderate amount of food material in the upper esophagus is present. The chest CT obtained on 04/14/2024 and 11/05/2023 showed diffuse thickening of the distal esophagus without significant interval change. The aortic arch shows no aneurysm. The great vessels of the aortic arch show no significant stenosis. Vertebral arteries show no significant stenosis or dissection. A stent in the distal right common carotid and proximal right internal carotid is present. A soft plaque in the distal right common carotid at the proximal end of the stent results in about 44% diameter stenosis with the stenotic segment measuring about 3 mm and the normal segment, 5.4 mm. The left common carotid and left internal carotid show no significant stenosis. CT/CT angio neck IMPRESSION: No large vessel occlusion. No significant intracranial stenosis. Patent dural venous sinuses. A stent in the distal right common carotid and proximal right internal carotid is present. A soft plaque in the distal right common carotid at the proximal end of the stent results in about 44% diameter stenosis. The left common carotid and internal carotid show no significant stenosis. Vertebral arteries show no significant stenosis. A small-moderate amount of food material in the upper esophagus is present. The chest CT obtained on 04/14/2024 and 11/05/2023 showed diffuse thickening of the distal esophagus without significant interval change. The findings favor esophagitis. However, if there is clinical indication, endoscopy will be helpful to exclude neoplasm. Mild centrilobular emphysema. Electronically authenticated by: TERRY BIRAHIM Date: 04/29/2024 22:34
--- NOTE | 2024-04-29 20:42 | CT_ITS ---
The [address] [address] Patient Name: TAYLOR MCCLELLAN MRN: [id number] date: 1955 Sex: M Assigned Patient Location: ER Current Patient Location: Accession/Order Number: [id number] Exam Date: 04/29/2024 21:10 Report Date: 04/29/2024 22:34 At the request of: AUBREY POON Procedure: CT angio head EXAM: CT angio head, CT angio neck HISTORY: Intermittent neural deficits. COMPARISON: Head CT on 04/29/2024. CT of the chest on 04/14/2024 and 11/05/2023. TECHNIQUE: Following IV administration of iodinated contrast, axial CT scans of the head and neck were obtained. MPR and MIP images images were obtained. In addition, 3-D reconstruction images were generated using a separate independent workstation. Carotid stenosis is based on NASCET criteria. Dose reduction techniques were achieved by using automated exposure control and/or adjustment of mA and/or kV according to patient size and/or the use of an iterative reconstruction technique. FINDINGS: CTA OF THE HEAD: No major branch occlusion or significant intracranial stenosis. origin to of the right [employer] with aplastic right P1. Hypoplastic right A1. No aneurysm. Dural venous sinuses are patent. CTA OF THE NECK: No abnormal soft tissue mass in the neck. The visualized lungs show mild centrilobular emphysema. Osseous structures are intact. A small-moderate amount of food material in the upper esophagus is present. The chest CT obtained on 04/14/2024 and 11/05/2023 showed diffuse thickening of the distal esophagus without significant interval change. The aortic arch shows no aneurysm. The great vessels of the aortic arch show no significant stenosis. Vertebral arteries show no significant stenosis or dissection. A stent in the distal right common carotid and proximal right internal carotid is present. A soft plaque in the distal right common carotid at the proximal end of the stent results in about 44% diameter stenosis with the stenotic segment measuring about 3 mm and the normal segment, 5.4 mm. The left common carotid and left internal carotid show no significant stenosis. CT/CT angio head IMPRESSION: No large vessel occlusion. No significant intracranial stenosis. Patent dural venous sinuses. A stent in the distal right common carotid and proximal right internal carotid is present. A soft plaque in the distal right common carotid at the proximal end of the stent results in about 44% diameter stenosis. The left common carotid and internal carotid show no significant stenosis. Vertebral arteries show no significant stenosis. A small-moderate amount of food material in the upper esophagus is present. The chest CT obtained on 04/14/2024 and 11/05/2023 showed diffuse thickening of the distal esophagus without significant interval change. The findings favor esophagitis. However, if there is clinical indication, endoscopy will be helpful to exclude neoplasm. Mild centrilobular emphysema. Electronically authenticated by: TERRY IBRAHIM Date: 04/29/2024 22:34
--- NOTE | 2024-04-29 20:50 | PC.NURSE ---
Called Mariel at [facility] to get clarification on what happened and history of previous events with this patient. She states that he has had episodes like this in the past and that the patient's family thinks it is all behavioral. 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 today she states he was sleeping more and not wanting to participate in therapy which is abnormal for him. he was not wanting to eat lunch. At dinner time, he seemed to fall asleep at the table, was not able to hold fork or feed self, could not smile. She had PT evaluate patient also along with other nurses and they all agreed that something was wrong. This information was all passed along to Dr. Doran.
[2024-04-30] VITALS (12 sets, daily range): BP systolic 118–152; BP diastolic 67–91; PULSE 66–85; TEMP 36.4–36.6; O2SAT 90–94; BMI 29.7
--- OUTSIDE RECORDS SUMMARY | 2024-04-30 00:57 | XMS_ITS | CCD ---
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 Name Role Phone Bro Sanford Primary Care Physician Unavailab Lior Dow Attending Physician Unavailable MD Genesis Reynolds Primary Care Provider MD Segundo Huston Emergency Provider MD Sang Bauer Admit Provider MD Sang Bauer Attending Provider LEXIE Mckeon Other Provider Unavailable DO Lawrence Lee Other Provider MD Kaden Summers Other Provider [phone] MD Edinson Bustamante Other Provider MD Itzel Adams Other Provider [phone] MD Ramos Fraga Other Provider LILA Hopper Other Provider MD Cinthia Rae Other Provider MD Ramón Ayala Other Provider MD Flavio Ramirez Other Provider Goldy [facility]- Pily Espinal Other Provider [phone] MD Adelaide Leonardo Other Provider MD Itzel [...] WERNER Admitting Unavailable Itzel Adams Attending Unavailable Itezl Adams Attending Unavailable Itzel Adams Attending Unavailable [...] [Amitriptyline] Drug Allergy 05-18-20 14 Unknown Reaction [facility] (12 sources) atorvastatin; Translations: [atorvastatin] Drug Allergy 01-24-20 19 Unknown Reaction, Unknown [facility] (6 sources) chlordiazePOXIDE; Translations: [chlordiazepoxide] Drug Allergy 01-24-20 19 Unknown Reaction [facility] (6 sources) clidinium; Translations: [clidinium] Drug Allergy 01-24-20 19 Unknown Reaction [facility] (15 sources) fentaNYL; Translations: [Fentanyl] Drug Allergy 12-27-19 17 Unknown Reaction, Unknown [facility] (8 sources) venlafaxine; Translations: [venlafaxine] Drug Allergy 05-13-20 14 Other (See Comments) [facility] (3 sources) Citalopram; Translations: [Citalopram] Drug Allergy 01-11-20 21 Unknown Reaction [facility] (4 sources) Simvastatin; Translations: [simvastatin] Drug Allergy 07-17-20 22 Unknown Reaction [facility] (6 sources) Succinylcholine; Translations: [Succinylcholine] Drug Allergy 09-08-20 04 Unknown Reaction [facility] (7 sources) Amitriptyline; Translations: [Elavil] Drug Allergy 04-20-20 14 Unknown [facility] (6 sources) chlordiazePOXIDE / clidinium Drug Allergy Unknown [email or web address] Other (7 sources) venlafaxine; Translations: [Effexor] Drug Allergy 04-06-20 14 Unknown [facility] (1 source) buPROPion Drug Allergy [facility] (1 source) Citalopram Drug Allergy 12-31-19 20 [facility] (1 source) mirabegron Drug Allergy [facility] (1 source) Simvastatin Drug Allergy [facility] (1 source) tiZANidine Drug Allergy [facility] (1 source) Amitriptyline Drug Allergy 05-18-20 14 COM DEV Phone: Medications Current Medications Medication Drug Class(es) [...] 11, 2018 11:00pm December 23, 2018 4:29pm [id number] 200 actuat albuterol 0.09 mg/actuat metered dose [...] tablet by mouth twice daily Hydrocodone-Aceta minophen (Orient) 5-325 mg tablet Discontinued 1 TAB PO [...] Coronary arteriosclerosis; Translations: [Atherosclerotic heart disease of [place] coronary artery without angina pectoris] Onset: 11-25-2014 [...] 12-26-2016 Chronic Other aftercare (1 source) Other skilled nursing (current) drug therapy; Translations: [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 THERAPY] Onset: 01-21-2023 Episodic Other aftercare (1 source) 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/antip latelets; Translations: [CAFETERIA ASSOCIATE 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/ANTIPLAT LETS] Onset: 12-20-2022 Episodic Other circulatory [...] 06-25-2022 07-17-2022 Episodic Other aftercare (1 source) [facility] (current) use of aspirin; Translations: [SHELTER CURRENT USE OF ASPIRIN] Onset: 07-20-2022 Episodic [...] Range Facility Office Visiton 03-26-2024 Follow-up visit [id number] Chacho Mcclellan ph J 1955 M Date Provider Department Center 03/26/2024 271-MITZY TOVAR [facility] Family History Problem Relation Age of Onset No Known Problems Mother No Known Problems Father Family Status - Relation Status Age at Mother Father Level of Service:93525 PA OFFICE/OUTPATIENT ESTABLISHED MOD MDM 30 MIN [facility] HPon 02-25-2024 H&P reviewed. The pa freddy was examined and there are no changes to the H&P. [facility] NURSNOTEon 02-25-2024 NURSNOTE RN educated pt on d/ c instructions. RN encouraged pt to voice any questions or concerns. Pt verbalizes no questions or concerns at this time. Pt was wheeled off of unit with all of belongings. Normal [facility] Orders Onlyon 02-20-2024 Orders Only [id number] Chacho Mcclellan ph J 1955 M Date Provider Department Center 02/20/2024 ZANDRA TEJADA [facility] MI HeartVAS Family History Problem Relation Age of Onset No Known Problems Mother No Known Problems Father Family Status - Relation Status Age at Mother Father [facility] HPon 02-17-2024 [facility] Cardiology Clinic Note Chief Complaint: New patient here to establish care. Ref from Dr. Reynolds for abnormal stress test. 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 Stress test was ordered for [...] catheterization. 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 Normal [facility] Office Visiton 02-17-2024 Follow-up visit [id number] Chacho Mcclellan ph J 1955 M [facility] Provider Department Center 02/17/2024 Getachew-MITZY TOVAR NASRIN Mccarty Family History Problem Relation Age of Onset No Known Problems Mother No Known Problems Father Family Status - Relation Status Age at Mother Father Level of Service:71398 PA OFFICE/OUTPATIENT [facility] 60 MINUTES Normal [facility] Orders Onlyon 02-17-2024 Orders Only [id number] Chacho Mcclellan ph J 1955 M Date Provider Department Center 02/17/2024 DIRK JARA CARD Lesele Mccarty Family History Problem Relation Age of Onset No Known Problems Mother No Known Problems Father Family Status - Relation Status Age at Mother Father Normal [facility] Urinalysis w/ Microon 2023 Bacteria TRACE Abnormal NONE [facility] Comment on above: Performed By: #### U AMIC #### [facility] [address] [place], [place] [phone] Returns Supervisor: Sarai Howell MD Bilirubin, SemiQt,Ur Negative Normal NEG [facility] Comment on above: Performed By: #### U AMIC #### [facility] [address] [place], [place] [address] Returns Supervisor: Sarai Howell MD Blood, Urine Negative Normal NEG [facility] Comment on above: Performed By: #### U AMIC #### [facility] [address] [place], [place] 2343783 Returns Supervisor: Sarai Howell MD Clarity (U) Clear Normal CLEAR [facility] Comment on above: Performed By: #### U AMIC #### [facility] [address] [place], [place] 236[address]83 Returns Supervisor: Sarai Howell MD Color (U) Yellow Normal YEL [facility] Comment on above: Performed By: #### U AMIC #### [facility] [address] [place] [address] Returns Supervisor: Sarai Howell MD Epithelial cells LM Ql (Urine sed) 0 TO 2 Normal 0-5 [facility] Comment on above: Performed By: #### U AMIC #### [facility] [address] [place] [address] Returns Supervisor: Sarai Howell MD Glucose Ql (U) Negative Normal NEG [facility] Comment on above: Performed By: #### U AMIC #### [facility] [address] [place] [address] Returns Supervisor: Sarai Howell MD Ketones Ql (U) Negative Normal NEG [facility] Comment on above: Performed By: #### U AMIC #### [facility] [address] [place], [place] [address] Returns Supervisor: Sarai Howell MD Leukocyte esterase Test strip Ql (U) Negative Normal NEG [facility] Comment on above: Performed By: #### U AMIC #### [facility] [address] [place], [place] [phone] Returns Supervisor: Sarai Howell MD Mucus Strands TRACE Abnormal NONE [facility] Comment on above: Performed By: #### U AMIC #### [address] [place], [place] [phone] Returns Supervisor: Sarai Howell MD Nitrite,Ur Negative Normal NEG [facility] Comment on above: Performed By: #### U AMIC #### [facility] [address] [place] [address] Dr[place], [place] [phone] Returns Supervisor: Sarai Howell MD PH,Ur 7.0 Normal 5.0-9.0 [facility] Comment on above: Performed By: #### U AMIC #### [address] [place], [place] [phone] Returns Supervisor: Sarai Howell MD Protein Ql (U) Negative Normal NEG [facility] Comment on above: Performed By: #### U AMIC #### [facility] [address] [place], [place] [phone] Returns Supervisor: Sarai Howell MD Spec. [place],Ur 1.015 Normal 1.010-1.02 0 [facility] Comment on above: Performed By: #### U AMIC #### [facility] [address] [place] [address] Returns Supervisor: Sarai Howell MD Urine RBC's 0 TO 2 Normal 0-2 [facility] Comment on above: Performed By: #### U AMIC #### [facility] [address] [place] [address] Returns Supervisor: Sarai Howell MD Urine WBC's 2 TO 5 Normal 0-5 [facility] Comment on above: Performed By: #### U AMIC #### [facility] [address] [place] [address] Returns Supervisor: Sarai Howell MD Urobilinogen,Ur Normal Normal 0.0-1.0 [facility] Comment on above: Performed By: #### U AMIC #### [facility] [address] [place] [address] Returns Supervisor: Sarai Howell MD Urinalysis with Microscopico n 11-10-2023 Bacteria LM Ql (Urine sed) TRACE Abnormal None [facility] Bilirubin Ql (U) Negative NEGATIVE [facility] Clarity (U) Clear Clear [facility] Color (U) Yellow Yellow [facility] Epithelial cells LM.HPF (Urine sed) [#/Area] 0 TO 2 [facility] Glucose Test strip (U) [Mass/Vol] Negative NEGATIVE mg/dL [facility] Hemoglobin Auto test strip Ql (U) Negative NEGATIVE [facility] Interpretation and review of laboratory results Abnormal [facility] Ketones (U) [Mass/Vol] Negative NEGAT MELISSA mg/dL [facility] Leukocyte esterase Test strip Ql (U) Negative NEGATIVE [facility] Mucus Ql (Urine sed) TRACE Abnormal None [facility] Nitrite Ql (U) Negative NEGATIVE [facility] pH (U) 7.0 [pH] 5.0 - 9.0 [facility] Protein (U) [Mass/Vol] Negative NEGAT MELISSA mg/dL [facility] RBC LM.HPF (Urine sed) [#/Area] 0 TO 2 [facility] Specific gravity (U) [Rel density] 1.015 1.010 - 1.020 [facility] Urobilinogen Qn (U) Normal 0.0 - 1. 0 EU/dL [facility] WBC LM.HPF (Urine sed) [#/Area] 2 TO 5 [facility] Cult, Bloodon 04-30-2023 Cult, Blood Specimen Description .BLOOD Special Requests lhand, 9ml, 2 bottles Culture NO GROWTH 5 DAYS Report Status FINAL 04/30/2023 [facility] Comment on above: Performed By: #### B CUL2 #### [facility] [address] [place] [address] Returns Supervisor: Sarai Howell MD Cult,Bloodon 04-30-2023 Cult,Blood Specimen Description .BLOOD Special Requests LAC, 20ML Culture NO GROWTH 5 DAYS Report Status FINAL 04/30/2023 [facility] Comment on above: Performed By: #### B C #### [facility] [address] [place] [address] Returns Supervisor: Sarai Howell MD Lipid Profileon 04-26-2023 Cholesterol [Mass/Vol] 171 mg/dL Normal <200 [facility] Comment on above: Result Comment: Cholesterol Guidelines: <200 Desirable 200-240 Borderline >240 Undesirable Performed By: #### L IPR #### [address] [phone] Returns Supervisor: Spencer Tapia MD Cholesterol in HDL [Mass/Vol] 30 mg/dL Low >40 [facility] Comment on above: Result Comment: HDL Guidelines: <40 Undesirable 40-59 Borderline >59 Desirable Performed By: #### L IPR #### [address] [place] [address] Returns Supervisor: Spencer Tapia MD Cholesterol in LDL [Mass/Vol] 112 mg/dL Normal 0-130 [facility] Comment on above: Result Comment: LDL Guidelines: <100 Desirable 100-129 Near to/above Desirable 130-159 Borderline >159 Undesirable Direct (measured) LDL and calculated LDL are not interchangeable tests. Performed By: #### L IPR #### [facility] [address] [place] [address] [id number] Returns Supervisor: Spencer Tapia MD Cholesterol.total/Chol esterol in HDL [Mass ratio] 5.7 {ratio} High <5 [facility] Comment on above: Performed By: #### L IPR #### [facility] [address] [place] [address] Returns Supervisor: Spencer Tapia MD Triglyceride [Mass/Vol] 143 mg/dL Normal <150 [facility] Comment on above: Result Comment: Triglyceride Guidelines: <150 Desirable 150-199 Borderline 200-499 High >499 Very high Based on AHA Guidelines for fasting triglyceride, June 2012. Performed By: #### L IPR #### [facility] [address] [place] [address] Returns Supervisor: Spencer Tapia MD Basic Metabolic Profon 04-25 Anion gap [Moles/Vol] 13 mmol/L Normal - [facility] Comment on above: Performed By: #### T ANJALI AYALA, BMP #### [facility] [address] [place], [place] [address] Returns Supervisor: Sarai Howell MD BUN/CRE Ratio 14 Normal -20 [facility] Comment on above: Performed By: #### T ANJALI AYALA, BMP #### [facility] [address] [place] [address] Returns Supervisor: Sarai Howell MD Calcium [Mass/Vol] 9.3 mg/dL Normal 8.6-10.4 [facility] Comment on above: Performed By: #### T ANJALI AYALA, BMP #### [facility] [address] [place] [phone] Returns Supervisor: Sarai Howell MD Chloride [Moles/Vol] 101 mmol/L Normal 98-107 [facility] Comment on above: Performed By: #### ANJALI PRADHAN, BMP #### [facility] [address] [place] [address] Returns Supervisor: Sarai Howell MD CO2 [Moles/Vol] 25 mmol/L Normal 20-31 [facility] Comment on above: Performed By: #### ANJALI PRADHAN, BMP #### [facility] [address] [place] [address] Returns Supervisor: Sarai Howell MD Creatinine [Mass/Vol] 1.3 mg/dL High 0.7-1.2 [facility] Comment on above: Performed By: #### T ANJALI AYALA, BMP #### [facility] [address] [place] [address] Returns Supervisor: Sarai Howell MD GFR/1.73 sq M.predicted among non-blacks MDRD (S/P/Bld) [Vol rate/Area] mL/min/{1.73_m2} Normal >60 [facility] Comment on above: Result Comment: These [...] #### T ANJALI AYALA, BMP #### [facility] [address] [place] [address] Returns Supervisor: Sarai Howell MD Glucose [Mass/Vol] 87 mg/dL Normal 70-99 [facility] Comment on above: Performed By: #### T ANJALI AYALA, BMP #### [facility] [address] [place] [address] Returns Supervisor: Sarai Howell MD Potassium [Moles/Vol] 3.9 mmol/L Normal 3.7-5.3 [facility] Comment on above: Performed By: #### T ANJALI AYALA, BMP #### [facility] [address] [place], [place] 1952[address] Returns Supervisor: Sarai Howell MD Sodium [Moles/Vol] 139 mmol/L Normal 135-144 [facility] Comment on above: Performed By: #### ANJALI PRADHAN, BMP #### [facility] [address] [place], [place] [phone] Returns Supervisor: Sarai Howell MD Urea nitrogen [Mass/Vol] 18 mg/dL Normal 8-23 [facility] Comment on above: Performed By: #### ANJALI PRADHAN, BMP #### [address] [place], [facility]83 Returns Supervisor: Sarai Howell MD CBC with Diffon 04-25-2023 Abs. Basophil 0.04 k/uL Normal 0.00-0.20 [facility] Comment on above: Performed By: #### ANJALI PRADHAN, BMP #### [facility] [address] [place] [address] Dr[place], [facility] Returns Supervisor: Sarai Howell MD Abs.Imm.Granulocyte 0.04 k/uL Normal 0.00-0.30 [facility] Comment on above: Performed By: #### ANJALI PRADHAN, BMP #### [address] [place], [facility]83 Returns Supervisor: Sarai Howell MD Abs.Neutrophil (Seg) 5.64 k/uL Normal 1.50-8.10 [facility] Comment on above: Performed By: #### ANJALI PRADHAN, BMP #### [address] [place], [place] [phone] Returns Supervisor: Sarai Howell MD Basophils/100 WBC (Bld) 1 % Normal 0-2 [facility] Comment on above: Performed By: #### ANJALI PRADHAN, BMP #### [facility] [address] [place] [address] Dr. [place], [facility] Returns Supervisor: Sarai Howell MD Eosinophils (Bld) [#/Vol] 0.09 10*3/uL Normal 0.00-0.44 [facility] Comment on above: Performed By: #### ANJALI PRADHAN, BMP #### [facility] [address] [place], [place] [phone] Returns Supervisor: Sarai Howell MD Eosinophils/100 WBC (Bld) 1 % Normal 1-4 [facility] Comment on above: Performed By: #### ANJALI PRADHAN, BMP #### [facility] [address] [place], [place] [phone] Returns Supervisor: Sarai Howell MD Erythrocyte distribution width (RBC) [Ratio] 15.4 % High 11.8-14.4 [facility] Comment on above: Performed By: #### ANJALI PRADHAN, BMP #### [address] [place], [place] 6242583 Returns Supervisor: Sarai Howell MD Hematocrit (Bld) [Volume fraction] 40.6 % Low 40.7-50.3 [facility] Comment on above: Performed By: #### ANJALI PRADHAN, BMP #### [address] [place], [place] [phone] Returns Supervisor: Sarai Howell MD Hemoglobin (Bld) [Mass/Vol] 13.1 g/dL Normal 13.0-17.0 [facility] Comment on above: Performed By: #### ANJALI PRADHAN, BMP #### [facility] [address] [place], [place] 1377383 Returns Supervisor: Sarai Howell MD Immature granulocytes/100 WBC (Bld) 1 % High 0 [facility] Comment on above: Performed By: #### ANJALI PRADHAN, BMP #### [facility] [address] [place] [address] Returns Supervisor: Sarai Howell MD Lymphocytes (Bld) [#/Vol] 1.86 10*3/uL Normal 1.10-3.70 [facility] Comment on above: Performed By: #### ANJALI PRADHAN, BMP #### [facility] [address] [place], [place] [phone] Returns Supervisor: Sarai Howell MD Lymphocytes/100 WBC (Bld) 22 % Low 24-43 [facility] Comment on above: Performed By: #### ANJALI PRADHAN, BMP #### [facility] [address] [place] [phone] Returns Supervisor: Sarai Howell MD MCH (RBC) [Entitic mass] 29.0 pg Normal 25.2-33.5 [facility] Comment on above: Performed By: #### ANJALI PRADHAN, BMP #### [address] [place] [address] Returns Supervisor: Sarai Howell MD MCHC (RBC) [Mass/Vol] 32.3 g/dL Normal 28.4-34.8 [facility] Comment on above: Performed By: #### ANJALI PRADHAN, BMP #### [address] [place] [address] Returns Supervisor: Sarai Howell MD MCV (RBC) [Entitic vol] 89.8 fL Normal 82.6-102.9 [facility] Comment on above: Performed By: #### ANJALI PRADHAN, BMP #### [address] [place] [address] Returns Supervisor: Sarai Howell MD Monocytes (Bld) [#/Vol] 0.83 10*3/uL Normal 0.10-1.20 [facility] Comment on above: Performed By: #### ANJALI PRADHAN, BMP #### [facility] [address] [place], [place] 3669483 Returns Supervisor: Sarai Howell MD Monocytes/100 WBC (Bld) 10 % Normal 3-12 [facility] Comment on above: Performed By: #### ANJALI PRADHAN, BMP #### [facility] [address] [place], [place] 1178283 Returns Supervisor: Sarai Howell MD Neutrophil (Seg) 65 % Normal 36-65 [facility] Comment on above: Performed By: #### ANJALI PRADHAN, BMP #### [facility] [address] [place] [address] Returns Supervisor: Sarai Howell MD NRBC Automated 0.0 per 100 WBC Normal 0.0 [facility] Comment on above: Performed By: #### ANJALI PRADHAN, BMP #### [facility] [address] [place], [place] 768[address]83 Returns Supervisor: Sarai Howell MD Platelet mean volume (Bld) [Entitic vol] 11.9 fL Normal 8.1-13.5 [facility] Comment on above: Performed By: #### ANJALI PRADHAN, BMP #### [address] [place], [place] 3765083 Returns Supervisor: Sarai Howell MD Platelets (Bld) [#/Vol] 254 10*3/uL Normal 138-453 [facility] Comment on above: Performed By: #### ANJALI PRADHAN, BMP #### [facility] [address] [place] [address] Returns Supervisor: Sarai Howell MD RBC (Bld) [#/Vol] 4.52 10*6/uL Normal 4.21-5.77 [facility] Comment on above: Performed By: #### ANJALI PRADHAN, BMP #### [facility] [address] [place], [place] [phone] Returns Supervisor: Sarai Howell MD WBC (Bld) [#/Vol] 8.5 10*3/uL Normal 3.5-11.3 [facility] Comment on above: Performed By: #### T ANJALI AYALA, BMP #### [facility] [address] [place] [address] Returns Supervisor: Sarai Howell MD CT HEAD WO [...] Babs Mae MD 04/25/23 Final result Normal [facility] Flu A/B Ag Detectionon 04-25 Flu A Ag Detection Negative Normal NEG [facility] Comment on above: Result Comment: for Influenza A Antigen Performed By: #### F LUABA #### [facility] [address] [place] [address] Returns Supervisor: Sarai Howell MD Flu B Ag Detection Negative Normal NEG [facility] Comment on above: Result Comment: for Influenza B Antigen. Performed By: #### F HENRY #### [facility] [address] [place] [address] Returns Supervisor: Sarai Howell MD Lactic Acidon 04-25-2023 Lactate [Moles/Vol] 1.3 mmol/L Normal 0.5-2.2 [facility] Comment on above: Performed By: #### L ACTIC #### [facility] [address] [place] [address] Returns Supervisor: Sarai Howell MD [id number] 04-25-2023 SARS-CoV-2 (COVID-19) RNA JOSÉ MIGUEL+probe Ql (Unsp spec) Not detected Normal NOTDET [facility] Comment on above: Result Comment: Rapid [...] management decisions. Fact sheet for Healthcare Providers: https://www.fda.gov/media/677022/download Fact sheet for Patients: https://www.fda.gov/media/563337/download Methodology: Isothermal Nucleic Acid Amplification Performed By: #### F HENRY #### [facility] [address] [place] [address] Returns Supervisor: Sarai Howell MD Troponinon 04-25-2023 Troponin, High Sens 26 ng/L High 0-22 [facility] Comment on above: Result Comment: High Sensitivity Troponin values cannot be compared with other Troponin methodologies. Performed By: #### F LUABA #### [facility] [address] [place], [place] [phone] Returns Supervisor: Sarai Howell MD Troponin, High Sens 27 ng/L High 0-22 [facility] Comment on above: Result Comment: High Sensitivity Troponin values cannot be compared with other Troponin methodologies. Performed By: #### T JAMIE, CDP, BMP #### [facility] [address] [place], [place] [phone] Returns Supervisor: Sarai Howell MD UA w/Reflex Cultureon 2022 Bilirubin, SemiQt,Ur SMALL Abnormal NEG [facility] Comment on above: Performed By: #### F LUABA #### [facility] [address] [place] [address] Dr. [place], [place] [id number] Returns Supervisor: Sarai Howell MD Blood, Urine 3+ Abnormal NEG [facility] Comment on above: Performed By: #### F LUABA #### [facility] [address] [place] [address] [place]. [place], [place] [phone] Returns Supervisor: Sarai Howell MD Clarity (U) Cloudy Abnormal CLEAR [facility] Comment on above: Performed By: #### F LUABA #### [facility] [address] [place] [address] [place]. [place], [place] [id number] Returns Supervisor: Sarai Howell MD Color (U) Yellow Normal YEL [facility] Comment on above: Performed By: #### F LUABA #### [facility] [address] [place], [place] [phone] Returns Supervisor: Sarai Howell MD Glucose Ql (U) Negative Normal NEG [facility] Comment on above: Performed By: #### F LUABA #### [facility] [address] [place], [place] [id number] Returns Supervisor: Sarai Howell MD Ketones Ql (U) 1+ mg/dL Abnormal NEG [facility] Comment on above: Performed By: #### F LUABA #### [facility] [address] [place], [place] 9657583 Returns Supervisor: Sarai Howell MD Leukocyte esterase Test strip Ql (U) TRACE Abnormal NEG [facility] Comment on above: Performed By: #### F LUABA #### [facility] [address] [place], [place] [phone] Returns Supervisor: Sarai Howell MD Nitrite,Ur Negative Normal NEG [facility] Comment on above: Performed By: #### F LUABA #### [facility] [address] [place], [place] 8181783 Returns Supervisor: Sarai Howell MD PH,Ur 6.0 Normal 5.0-9.0 [facility] Comment on above: Performed By: #### F LUABA #### [facility] [address] [place], [place] 2135783 Returns Supervisor: Sarai Howell MD Protein Ql (U) 1+ mg/dL Abnormal NEG [facility] Comment on above: Performed By: #### F LUABA #### [facility] [address] [place], [place] [phone] Returns Supervisor: Sarai Howell MD Spec. [place],Ur >1.030 High 1.010-1.02 0 [facility] Comment on above: Performed By: #### F LUABA #### [facility] [address] [place], [place] 9079783 Returns Supervisor: Sarai Howell MD Urobilinogen,Ur Normal Normal 0.0-1.0 [facility] Comment on above: Performed By: #### F LUABA #### [facility] [address] [place], [place] [phone] Returns Supervisor: Sarai Howell MD Urinalysis,Microon 3 Bacteria 1+ Abnormal NONE [facility] Comment on above: Performed By: #### F LUABA #### [facility] [address] [place], [place] 1871383 Returns Supervisor: Sarai Howell MD Epithelial cells LM Ql (Urine sed) None Normal 0-5 [facility] Comment on above: Performed By: #### F LUABA #### [facility] [address] [place], [place] 0344183 Returns Supervisor: Sarai Howell MD Mucus Strands TRACE Abnormal NONE [facility] Comment on above: Performed By: #### F LUABA #### [facility] [address] [place], [place] [phone] Returns Supervisor: Sarai Howell MD Urine RBC's 20 TO 50 Normal 0-2 [facility] Comment on above: Performed By: #### F LUABA #### [facility] [address] [place], [place] 6743783 Returns Supervisor: Sarai Howell MD Urine WBC's 2 TO 5 Normal 0-5 [facility] Comment on above: Performed By: #### F LUABA #### [facility] [address] [place] [address] Returns Supervisor: Sarai Howell MD XR CHEST PORTABLEon [...] Sarai Henson MD 04/25/23 Final result Normal [facility] BNPon 01-17-2023 Natriuretic peptide B (Bld) [Mass/Vol] 210.0 pg/mL Normal <=900.0 [facility] Comment on above: Performed By: #### B BANK CASHIER, CMADM, CMP ####[facility] [address] [place] [address]Dr. Donna Malone CARDIAC MJ ADMITon 023 CK [Catalytic activity/Vol] 67 U/L Normal 39-308 [facility] Comment on above: Performed By: #### B BANK CASHIER, CMADM, CMP ####[facility] Ac[address] [place] [address]Dr. Donna Malone CK.MB [Mass/Vol] 2.51 ng/mL Normal <=3.60 [facility] Comment on above: Performed By: #### B BANK CASHIER, CMADM, CMP ####[facility] [address]jznd[address] [place] [address]Dr. Donna Malone HSTROP 9.2 pg/mL Normal 4.0-76.1 [facility] Comment on above: Result Comment: CUT- OFF POINTS HAVE BEEN ESTABLISHED BASED ON THE FOURTH UNIVERSAL DEFINITIONS OF MYOCARDIALINFARCTION. THE UPPER REFERENCE LIMIT (URL) OF TROPONIN, DEFINED THE 99TH PERCENTILE OFcTnI DISTRIBUTION IN A REFERENCE POPULATION, HAS BEEN CONFIRMED THE DECISION THRESHOLDFOR [place] DIAGNOSIS. Performed By: #### B BANK CASHIER, CMADM, CMP ####[facility] [address]wielwt38[address] [place] [address]Dr. Donna Malone BINDU 68 ng/mL Normal 16-96 [facility] Comment on above: Performed By: #### B BANK CASHIER, CMADM, CMP ####[facility] Zipjalevgg[address] [place] [address]Dr. Donna Malone CBC AUTO DIFFon 01-17-2023 BASO # 0.1 103/ul Normal 0.0-0.1 [facility] Comment on above: Performed By: #### C BC ####[facility] Pprygqbgzi[address] [place] [address]Dr. Donna Malone Basophils/100 WBC (Bld) 0.8 % Normal 0.2-2.0 [facility] Comment on above: Performed By: #### C BC ####[facility] Banpythjmb34[address] [place] [address]Dr. Donna Malone EO # 0.1 103/ul Normal 0.0-0.7 [facility] Comment on above: Performed By: #### C BC ####[facility] Sespawwpdx[address] [place], [place] [address]Dr. Donna Malone Eosinophils/100 WBC (Bld) 1.4 % Normal 0.9-7.0 [facility] Comment on above: Performed By: #### C BC ####[facility] Jnpguezgyr[address] [place], [place] [address]Dr. Donna Malone Erythrocyte distribution width (RBC) [Ratio] 14.6 % Normal 11.0-15.0 [facility] Comment on above: Performed By: #### C BC ####[facility] Dabaoqubme[address] [place], [place] [address]Dr. Donna Malone Hematocrit (Bld) [Volume fraction] 43.9 % Normal 42.0-54.0 [facility] Comment on above: Performed By: #### C BC ####[facility] Bzuqzdkwyn[address] [place], [place] [address]Dr. Donna Malone Hemoglobin (Bld) [Mass/Vol] 14.2 g/dL Normal 14.0-18.0 [facility] Comment on above: Performed By: #### C BC ####[facility] Romrehxudi[address] [place], [place] [address]Dr. Donna Malone IG # 0.04 10e3/ul Critically high 0.00-0.03 [facility] Comment on above: Performed By: #### C BC ####[facility] Qyqbmijksg[address] [place], [place] [address]Dr. Rubyyvan Malone IG % 0.4 % Normal 0.0-0.5 [facility] Comment on above: Performed By: #### C BC ####[facility] Zejdknduyb[address] [place], [place] [address]Dr. Donna Malone LYMPH # 2.3 103/ul Normal 1.2-3.8 [facility] Comment on above: Performed By: #### C BC ####[facility] [address]icprwou[address] [place] [phone]. Rubyyvna Malone Lymphocytes/100 WBC (Bld) 25.4 % Normal 20.5-60.0 [facility] Comment on above: Performed By: #### C BC ####[facility] S[address]teepjw13[address] [place] [phone]. Donna Malone MANUAL DIFF REQ NO Normal [facility] Comment on above: Performed By: #### C BC ####[facility] Hwjbasjtdm2404 [place] [phone]. Donna Malone MCH (RBC) [Entitic mass] 29.6 pg Normal 25.9-34.0 [facility] Comment on above: Performed By: #### C BC ####[facility] [address]wrhsdrq[address] [place], [place] [address]Dr. Donna Malone MCHC (RBC) [Mass/Vol] 32.3 g/dL Normal 29.9-35.2 [facility] Comment on above: Performed By: #### C BC ####[facility] Frxvrgbyag[address] [place], [place] [address]Dr. Donna Malone MCV (RBC) [Entitic vol] 91.5 fL Normal 80.0-94.0 [facility] Comment on above: Performed By: #### C BC ####[facility] L[address]og[address]yow[address] [place], [place] [address]Dr. Donna Malone MONO # 0.7 103/ul Normal 0.3-0.8 [facility] Comment on above: Performed By: #### C BC ####[facility] [address]wo[address] [place], [place] [address]Dr. Donna Malone Monocytes/100 WBC (Bld) 7.5 % Normal 1.7-12.0 [facility] Comment on above: Performed By: #### C BC ####[facility] Iz[address] [place], [place] [address]Dr. Donna Malone NEUT # 5.9 103/ul Normal 1.4-6.5 [facility] Comment on above: Performed By: #### C BC ####[facility] Qvrvhfurgx7574 [place] [phone]. Donna Faisal Neutrophils/100 WBC (Bld) 64.5 % Normal 43.0-75.0 [facility] Comment on above: Performed By: #### C BC ####[facility] Mkhuvksvuo7[address] [place] [phone]. Rubyyvan Faisal Platelet mean volume (Bld) [Entitic vol] 10.6 fL Normal 9.5-13.5 [facility] Comment on above: Performed By: #### C BC ####[facility] Amgelbivgr[address] [place] [address]Dr. Donna Malone PLT 296 103/ul Normal 150-450 [facility] Comment on above: Performed By: #### C BC ####[facility] Zjmflfpzim6255 [place] [phone]. Donna Malone RBC 4.80 106/ul Normal 4.70-6.10 [facility] Comment on above: Performed By: #### C BC ####[facility] Mqlskawaxj4[address] [place] [address]Dr. Rubyyvan Faisal WBC 9.1 103/ul Normal 4.0-11.0 [facility] Comment on above: Performed By: #### C BC ####[facility] Zrltxtbags[address] [place] [phone]. Donna Malone CT CSPINE WO CONon 3 CT CSPINE WO CON Normal [facility] CT HEAD WO CONon 3 CT HEAD WO CON Normal [facility] CT LSPINE WO CONon 3 CT LSPINE WO CON Normal [facility] PROF 14(COMP METB)on 023 Albumin [Mass/Vol] 3.3 g/dL Critically low 3.4-5.0 Th e [facility] Comment on above: Performed By: #### B BANK CASHIER, CMADM, CMP ####[facility] T[address]pxqcen26[address] [place] [phone]. Donna Malone Albumin/Globulin [Mass ratio] 0.8 {ratio} Normal [facility] Comment on above: Performed By: #### B BANK CASHIER, CMADM, CMP ####[facility] Ezpahqsvot[address] Donna Malone ALP [Catalytic activity/Vol] 55 U/L Normal 46-116 [facility] Comment on above: Performed By: #### B BANK CASHIER, CMADM, CMP ####[facility] Uvozgdesfm0463 [place] [address]Dr. Donna Malone ALT [Catalytic activity/Vol] 15 U/L Critically low 16-63 [facility] Comment on above: Performed By: #### B BANK CASHIER, CMADM, CMP ####[facility] Jmjalqpxuu[address] Donna Malone Anion gap [Moles/Vol] 9.6 mmol/L Normal [facility] Comment on above: Performed By: #### B BANK CASHIER, CMADM, CMP ####[facility] [address] [place] [address]. Donna Malone AST [Catalytic activity/Vol] 14 U/L Critically low 15-37 [facility] Comment on above: Performed By: #### B BANK CASHIER, CMADM, CMP ####[facility] Dgnvecelvk[address] [place] [address]. Donna Malone Bilirubin [Mass/Vol] 0.2 mg/dL Normal 0.2-1.0 [facility] Comment on above: Performed By: #### B BANK CASHIER, CMADM, CMP ####[facility] Xansfeiggh[address] [place] [address]. Donna Malone Calcium [Mass/Vol] 8.6 mg/dL Normal 8.5-10.1 [facility] Comment on above: Performed By: #### B BANK CASHIER, CMADM, CMP ####[facility] Mumfnswvoi[address] [place] [address]. Donna Malone Chloride [Moles/Vol] 107 mmol/L Normal 98-107 [facility] Comment on above: Performed By: #### B BANK CASHIER, CMADM, CMP ####[facility] Tbidpovypd9168 [place] [address]Dr. Donna Malone CO2 [Moles/Vol] 25.9 mmol/L Normal 21.0-32.0 [facility] Comment on above: Performed By: #### B BANK CASHIER, CMADM, CMP ####[facility] Bjwykylsak[address] [place], [place] [address]Dr. Donna Malone Creatinine [Mass/Vol] 1.12 mg/dL Normal 0.70-1.30 [facility] Comment on above: Performed By: #### B BANK CASHIER, CMADM, CMP ####[facility] W[address]mmtqvygs[address] [place], [place] [address]Dr. Donna Faisal EGFR-AF CZECH >60 Normal >=60 [facility] Comment on above: Performed By: #### B BANK CASHIER, CMADM, CMP ####[facility] Upbrebdxwy[address] [place], [place] [address]Dr. Donna Malone EGFR-NON AF CZECH >60 Normal >=60 [facility] Comment on above: Performed By: #### B BANK CASHIER, CMADM, CMP ####[facility] Uozhmymoub[address] [place], [place] [address]Dr. Donna Faisal Globulin (S) [Mass/Vol] 4.2 g/dL Normal [facility] Comment on above: Performed By: #### B BANK CASHIER, CMADM, CMP ####[facility] Ruyycdfuki[address] [place], [place] [address]Dr. Donna Malone Glucose [Mass/Vol] 163 mg/dL Critically high 74-106 [facility] Comment on above: Performed By: #### B BANK CASHIER, CMADM, CMP ####[facility] Yyehhufliz7[address] [place] [address]Dr. Donna Faisal Potassium [Moles/Vol] 4.5 mmol/L Normal 3.5-5.1 [facility] Comment on above: Performed By: #### B BANK CASHIER, CMADM, CMP ####[facility] Cmzcofqlij[address] [place], [place] [address]Dr. Donna Malone Protein [Mass/Vol] 7.5 g/dL Normal 6.4-8.2 [facility] Comment on above: Performed By: #### B BANK CASHIER, CMADM, CMP ####[facility] Mydxrmgywo4469 [place] [address]Dr. Donna Malone Sodium [Moles/Vol] 138 mmol/L Normal 136-145 [facility] Comment on above: Performed By: #### B BANK CASHIER, CMADM, CMP ####[facility] Akhsfstiig[address] [place], [place] [address]Dr. Donna Malone Urea nitrogen [Mass/Vol] 11.0 mg/dL Normal 7.0-18.0 [facility] Comment on above: Performed By: #### B BANK CASHIER, CMADM, CMP ####[facility] Wjkmprroin[address] [place], [place] [address]Dr. Donna Malone Urea nitrogen/Creatinine [Mass ratio] 9.8 mg/mg Normal [facility] Comment on above: Performed By: #### B BANK CASHIER, CMADM, CMP ####[facility] Lxtgdjetzo[address] [place], [place] [address]Dr. Donna Malone PROTIMEon 01-17-2023 INR Coag (PPP) [Relative time] 0.94 {INR} Normal [facility] Comment on above: Performed By: #### P TT, PT ####[facility] Exqtqpgmjv[address] [place], [place] [address]Dr. Donna Malone INR GUIDELINES SEE BELOW Normal [facility] Comment on above: Result Comment: FLORESITA RED INR: 2.0 - 3.0 CONDITIONS NOT LISTED BELOW 2.5 - 3.5 FOR PROSTHETIC HEART VALVE REPLACEMENT 2.5 - 3.5 RECURRENT THROMBOSIS Performed By: #### P TT, PT ####[facility] Hlkpxlawvf[address] [place], [place] [address]Dr. Donna Malone PT Coag (PPP) [Time] 10.0 s Normal 9.0-11.6 [facility] Comment on above: Performed By: #### P TT, PT ####[facility] C[address]ebvcsghf[address] [place], [place] [address]Dr. Donna Malone PTTon 01-17-2023 aPTT Coag (Bld) [Time] 29.6 s Normal 22.3-36.2 e [facility] Comment on above: Performed By: #### P TT, PT ####[facility] Fbnxzofxzw[address] [place], [place] [address]Dr. Donna Malone CBC AUTO DIFFon 11-17-2022 BASO # 0.0 103/ul Normal 0.0-0.1 [facility] Comment on above: Performed By: #### C BC ####[facility] Wfevixitce[address] [place], [place] [address]Dr. Donna Faisal Basophils/100 WBC (Bld) 0.2 % Normal 0.2-2.0 [facility] Comment on above: Performed By: #### C BC ####[facility] Vmgcdpaswg[address] [place], [place] [address]Dr. Donna Malone EO # 0.0 103/ul Normal 0.0-0.7 [facility] Comment on above: Performed By: #### C BC ####[facility] Xssypyypmf[address] [place], [place] [address]Dr. Donna Malone Eosinophils/100 WBC (Bld) 0.0 % Critically low 0.9-7.0 [facility] Comment on above: Performed By: #### C BC ####[facility] Hkfurwwdnb[address] [place], [place] [address]Dr. Donna Malone Erythrocyte distribution width (RBC) [Ratio] 14.5 % Normal 11.0-15.0 [facility] Comment on above: Performed By: #### C BC ####[facility] Ltmyparibo[address] [place], [place] [address]Dr. Donna Malone Hematocrit (Bld) [Volume fraction] 39.6 % Critically low 42.0-54.0 [facility] Comment on above: Performed By: #### C BC ####[facility] Tlntpjfxuo[address] [place], [place] [address]Dr. Donna Malone Hemoglobin (Bld) [Mass/Vol] 13.3 g/dL Critically low 14.0-18.0 [facility] Comment on above: Performed By: #### C BC ####[facility] Uxpvvjelgp[address] [place], [place] [address]Dr. Donna Malone IG # 0.06 10e3/ul Critically high 0.00-0.03 [facility] Comment on above: Performed By: #### C BC ####[facility] Rpvymvssaf4[address] [place] [address]DrElizabeth Malone IG % 0.5 % Normal 0.0-0.5 [facility] Comment on above: Performed By: #### C BC ####[facility] Fkfyylgpai2593 [place] [address]DrElizabeth Malone LYMPH # 1.0 103/ul Critically low 1.2-3.8 [facility] Comment on above: Performed By: #### C BC ####[facility] Gxetmophzr9404 [place] [address]DrElizabeth Malone Lymphocytes/100 WBC (Bld) 8.3 % Critically low 20.5-60.0 [facility] Comment on above: Performed By: #### C BC ####[facility] Fgktwxefgm5904 [place] [address]DrElizabeth Malone MANUAL DIFF REQ NO Normal [facility] Comment on above: Performed By: #### C BC ####[facility] Ebuwljqhqs9917 [place] [address]DrElizabeth Malone MCH (RBC) [Entitic mass] 29.4 pg Normal 25.9-34.0 [facility] Comment on above: Performed By: #### C BC ####[facility] Xwktfxjukv4617 [place] [address]DrElizabeth Malone MCHC (RBC) [Mass/Vol] 33.6 g/dL Normal 29.9-35.2 [facility] Comment on above: Performed By: #### C BC ####[facility] Ryklvmahqa0380 [place] [address]DrElizabeth Malone MCV (RBC) [Entitic vol] 87.6 fL Normal 80.0-94.0 [facility] Comment on above: Performed By: #### C BC ####[facility] Vxjfqgeiuz5497 [place] [address]DrElizabeth Malone MONO # 0.8 103/ul Normal 0.3-0.8 [facility] Comment on above: Performed By: #### C BC ####[facility] Ythqgtvssb1436 [place] [address]Dr. Donna Malone Monocytes/100 WBC (Bld) 6.6 % Normal 1.7-12.0 [facility] Comment on above: Performed By: #### C BC ####[facility] Zxssgxszir[address] [place] [address]Dr. Donna Malone NEUT # 10.2 103/ul Critically high 1.4-6.5 [facility] Comment on above: Performed By: #### C BC ####[facility] Mkhydxebim4063 [place] [address]Dr. Donna Malone Neutrophils/100 WBC (Bld) 84.4 % Critically high 43.0-75.0 [facility] Comment on above: Performed By: #### C BC ####[facility] Vswhojvyby[address] [place], [place] [address]Dr. Donna Malone Platelet mean volume (Bld) [Entitic vol] 11.5 fL Normal 9.5-13.5 [facility] Comment on above: Performed By: #### C BC ####[facility] Pggnrbzond33[address] [place] [address]Dr. Donna Malone PLT 204 103/ul Normal 150-450 [facility] Comment on above: Performed By: #### C BC ####[facility] Yjdtltevxy3140 [place] [address]Dr. Donna Malone RBC 4.52 106/ul Critically low 4.70-6.10 [facility] Comment on above: Performed By: #### C BC ####[facility] Okaufzjamo9837 [place] [address]Dr. Donna Malone WBC 12.0 103/ul Critically high 4.0-11.0 [facility] Comment on above: Performed By: #### C BC ####[facility] [address]yamdqrf[address] [place], [place] [address]DrElizabeth Donna Faisal MAGNESIUMon 11-17-2022 Magnesium [Mass/Vol] 1.9 mg/dL Normal 1.8-2.4 [facility] Comment on above: Performed By: #### C MP, MG ####[facility] Bjhcnogoli3843 [place] [address]Dr. Donna Malone PROF 14(COMP METB)on 023 Albumin [Mass/Vol] 3.2 g/dL Critically low 3.4-5.0 [facility] Comment on above: Performed By: #### C MP, MG ####[facility] Hbjoxyhjym0460 [place] [address]Dr. Donna Malone Albumin/Globulin [Mass ratio] 1.0 {ratio} Normal [facility] Comment on above: Performed By: #### C MP, MG ####[facility] [address]cydazaoqg[address] [place], [place] [address]Dr. Donna Malone ALP [Catalytic activity/Vol] 51 U/L Normal 46-116 [facility] Comment on above: Performed By: #### C MP, MG ####[facility] Fkfntwkhoa[address] [place], [place] [address]Dr. Donna Malone ALT [Catalytic activity/Vol] 16 U/L Normal 16-63 [facility] Comment on above: Performed By: #### C MP, MG ####[facility] Isofoahsuy64[address] [place] [address]Dr. Donna Malone Anion gap [Moles/Vol] 14.7 mmol/L Normal [facility] Comment on above: Performed By: #### C MP, MG ####[facility] Dcdkiekcco[address] [place], [place] [address]Dr. Donna Malone AST [Catalytic activity/Vol] 24 U/L Normal 15-37 [facility] Comment on above: Performed By: #### C MP, MG ####[facility] Gocvzrmxib01[address] [place] [address]Dr. Donna Malone Bilirubin [Mass/Vol] 0.5 mg/dL Normal 0.2-1.0 [facility] Comment on above: Performed By: #### C MP, MG ####[facility] Hcwyjfhnpe[address] [place] [id number]. Donna Malone Calcium [Mass/Vol] 8.6 mg/dL Normal 8.5-10.1 [facility] Comment on above: Performed By: #### C MP, MG ####[facility] Rzvaemecpz01[address] [place] [id number]. Donna Malone Chloride [Moles/Vol] 108 mmol/L Critically high 98-107 [facility] Comment on above: Performed By: #### C MP, MG ####[facility] Lcaqowsyeg1380 [place] [address]Dr. Donna Malone CO2 [Moles/Vol] 21.6 mmol/L Normal 21.0-32.0 [facility] Comment on above: Performed By: #### C MP, MG ####[facility] Tlnyrzekmq5130 [place] [address]Dr. Donna Malone Creatinine [Mass/Vol] 0.83 mg/dL Normal 0.70-1.30 [facility] Comment on above: Performed By: #### C MP, MG ####[facility] Mdcvxokbkf9908 [place] [address]Dr. Donna Malone EGFR-AF CZECH >60 Normal >=60 [facility] Comment on above: Performed By: #### C MP, MG ####[facility] [address]zufcspnol2474 [place] [address]Dr. Donna Malone EGFR-NON AF CZECH >60 Normal >=60 [facility] Comment on above: Performed By: #### C MP, MG ####[facility] R[address]jnarqh[address] [place] [id number]. Donna Malone Globulin (S) [Mass/Vol] 3.2 g/dL Normal [facility] Comment on above: Performed By: #### C MP, MG ####[facility] Xtzlijifwx[address] [place] [address]Dr. Donna Malone Glucose [Mass/Vol] 162 mg/dL Critically high 74-106 [facility] Comment on above: Performed By: #### C MP, MG ####[facility] Adhcnbaezu[address] [place] [address]Dr. Donna Malone Potassium [Moles/Vol] 3.3 mmol/L Critically low 3.5-5.1 [facility] Comment on above: Performed By: #### C MP, MG ####[facility] Fwihdyonlw[address] [place], [place] [address]Dr. Donna Faisal Protein [Mass/Vol] 6.4 g/dL Normal 6.4-8.2 [facility] Comment on above: Performed By: #### C MP, MG ####[facility] Jzlapusaod9[address] [place], [place] [address]Dr. Rubyyvan Malone Sodium [Moles/Vol] 141 mmol/L Normal 136-145 [facility] Comment on above: Performed By: #### C MP, MG ####[facility] Ztlcygnrov[address] [place], [place] [address]Dr. Donna Malone Urea nitrogen [Mass/Vol] 12.0 mg/dL Normal 7.0-18.0 [facility] Comment on above: Performed By: #### C MP, MG ####[facility] Krrsnnvbeh20[address] [place], [place] [address]Dr. Rubyyvan Malone Urea nitrogen/Creatinine [Mass ratio] 14.5 mg/mg Normal [facility] Comment on above: Performed By: #### C MP, MG ####[facility] Ehxrvbxwtv32[address] [place], [place] [address]Dr. Rubyyvan Malone AMMONIAon 11-16-2022 Ammonia (P) [Mass/Vol] ug/dL Critically low 11-32 [facility] Comment on above: Performed By: #### A MM ####[facility] Qjmgmvvcwi89[address] [place], [place] [address]Dr. Donna Faisal CBC AUTO DIFFon 11-16-2022 BASO # 0.0 103/ul Normal 0.0-0.1 [facility] Comment on above: Performed By: #### C BC ####[facility] Hbzclfmoff6260[address] [place], [place] [address]Dr. Rubyyvan Malone Basophils/100 WBC (Bld) 0.2 % Normal 0.2-2.0 [facility] Comment on above: Performed By: #### C BC ####[facility] Jcoabcjiup64[address] [place] [address]Dr. Rubyyvan Malone EO # 0.0 103/ul Normal 0.0-0.7 [facility] Comment on above: Performed By: #### C BC ####[facility] Wrgwasjhbb68[address] [place] [address]Dr. Donna Malone Eosinophils/100 WBC (Bld) 0.0 % Critically low 0.9-7.0 [facility] Comment on above: Performed By: #### C BC ####[facility] Wpqxsnknph85[address] [place] [address]Dr. Donna Malone Erythrocyte distribution width (RBC) [Ratio] 14.4 % Normal 11.0-15.0 [facility] Comment on above: Performed By: #### C BC ####[facility] Udwsrwwwyl[address] [place], [place] [address]DrElizabeth Malone Hematocrit (Bld) [Volume fraction] 38.6 % Critically low 42.0-54.0 [facility] Comment on above: Performed By: #### C BC ####[facility] Eysjgrcbpu665[address] [place], [place] [address]DrElizabeth Rubyyvan Malone Hemoglobin (Bld) [Mass/Vol] 13.1 g/dL Critically low 14.0-18.0 [facility] Comment on above: Performed By: #### C BC ####[facility] Cbqmozjemo[address] [place], [place] [address]DrElizabeth Malone IG # 0.05 10e3/ul Critically high 0.00-0.03 [facility] Comment on above: Performed By: #### C BC ####[facility] Fnqlzrctpc03[address] [place], [place] [address]DrElizabeth Malone IG % 0.5 % Normal 0.0-0.5 [facility] Comment on above: Performed By: #### C BC ####[facility] Vsqprbhwgw62[address] [place], [place] [address]DrElizabeth Malone LYMPH # 1.0 103/ul Critically low 1.2-3.8 [facility] Comment on above: Performed By: #### C BC ####[facility] Fyngkjuwom8[address] [place] [address]Dr. Donna Malone Lymphocytes/100 WBC (Bld) 10.8 % Critically low 20.5-60.0 [facility] Comment on above: Performed By: #### C BC ####[facility] Qgbvqzlged7[address] [place] [address]DrElizabeth Malone MANUAL DIFF REQ NO Normal [facility] Comment on above: Performed By: #### C BC ####[facility] Pxrcwnjaug6579 [place] [address]DrElizabeth Malone MCH (RBC) [Entitic mass] 29.4 pg Normal 25.9-34.0 [facility] Comment on above: Performed By: #### C BC ####[facility] Hmazpjvhuj7[address] [place], [place] [address]Dr. Donna Malone MCHC (RBC) [Mass/Vol] 33.9 g/dL Normal 29.9-35.2 [facility] Comment on above: Performed By: #### C BC ####[facility] Mzeihekrnk2[address] [place], [place] [address]DrElizabeth Malone MCV (RBC) [Entitic vol] 86.7 fL Normal 80.0-94.0 [facility] Comment on above: Performed By: #### C BC ####[facility] Iqdbvwrcys17[address] [place], [place] [address]Dr. Donna Malone MONO # 0.4 103/ul Normal 0.3-0.8 [facility] Comment on above: Performed By: #### C BC ####[facility] Dtkzcfxvtx208[address] [place], [place] [address]Dr. Donna Malone Monocytes/100 WBC (Bld) 4.4 % Normal 1.7-12.0 [facility] Comment on above: Performed By: #### C BC ####[facility] Bnkseqhjwo[address] [place], [place] [address]DrElizabeth Malone NEUT # 7.9 103/ul Critically high 1.4-6.5 [facility] Comment on above: Performed By: #### C BC ####[facility] Plcqpxmoss3664 [place] [address]Dr. Donna Malone Neutrophils/100 WBC (Bld) 84.1 % Critically high 43.0-75.0 [facility] Comment on above: Performed By: #### C BC ####[facility] Ycxlvdvxzq9453 [place] [address]Dr. Donna aFisal Platelet mean volume (Bld) [Entitic vol] 11.3 fL Normal 9.5-13.5 [facility] Comment on above: Performed By: #### C BC ####[facility] Qocsyrsoxh901[address] [place], [place] [address]Dr. Rubyyvan Faisal PLT 201 103/ul Normal 150-450 [facility] Comment on above: Performed By: #### C BC ####[facility] Dkhcvosruf06[address] [place], [place] [address]Dr. Donna Malone RBC 4.45 106/ul Critically low 4.70-6.10 [facility] Comment on above: Performed By: #### C BC ####[facility] Xnepwohjxl149[address] [place], [place] [address]Dr. Donna Malone WBC 9.3 103/ul Normal 4.0-11.0 [facility] Comment on above: Performed By: #### C BC ####[facility] Mjsxkmlfup185[address] [place], [place] [address]Dr. Donna Faisal GLYCOHEMOGLOBIN A1Con 2022 ADA RECOMMENDATION SEE BELOW Normal [facility] Comment on above: Result Comment: ADA RECOMMENDED LIMIT 4.0 - 6.0 ADA THERAPEUTIC TARGET < 7.0 ACTION SUGGESTED > 7.0 Performed By: #### A 1C ####[facility] Auzpkjczcj197[address] [place], [place] [address]Dr. Rubyyvan Malone Glucose [Mass/Vol] 128 mg/dL Normal [facility] Comment on above: Performed By: #### A 1C ####[facility] Yvmylgmnhv253[address] [place], [place] [address]Dr. Donna Malone HbA1c (Bld) [Mass fraction] 6.1 % Normal 4.5-6.2 [facility] Comment on above: Performed By: #### A 1C ####[facility] Nxrczxirjt447[address] [place], [place] [address]Dr. Donna Malone MAGNESIUMon 11-16-2022 Magnesium [Mass/Vol] 1.8 mg/dL Normal 1.8-2.4 [facility] Comment on above: Performed By: #### C MP, MG ####[facility] Ygvghqnzjf9[address] [place] [address]Dr. Donna Malone POINT OF CARE GLUCOSEon 11-07 Glucose [Mass/Vol] 170 mg/dL Critically high 74-106 [facility] Comment on above: Performed By: #### P OCGLUC ####[facility] Ezlqadjvrk20[address] [place], [place] [address]Dr. Donna Malone Glucose [Mass/Vol] 158 mg/dL Critically high 74-106 [facility] Comment on above: Performed By: #### P OCGLUC ####[facility] Hcgghhesan16[address] [place] [address]Dr. Donna Malone Glucose [Mass/Vol] 176 mg/dL Critically high -106 [facility] Comment on above: Performed By: #### P OCGLUC ####[facility] Neooatidzo60[address] [place] [address]Dr. Donna Malone PROF 14(COMP METB)on 023 Albumin [Mass/Vol] 3.1 g/dL Critically low 3.4-5.0 [facility] Comment on above: Performed By: #### C MP, MG ####[facility] Xpskbcgiam3572 [place] [address]Dr. Donna Malone Albumin/Globulin [Mass ratio] 0.9 {ratio} Normal [facility] Comment on above: Performed By: #### C MP, MG ####[facility] Frgerkekig4461 [place] [address]Dr. Donna Malone ALP [Catalytic activity/Vol] 52 U/L Normal 46-116 [facility] Comment on above: Performed By: #### C MP, MG ####[facility] Dtdxmtrvmg2604 [place] [address]Dr. Donna Malone ALT [Catalytic activity/Vol] 13 U/L Critically low 16-63 [facility] Comment on above: Performed By: #### C MP, MG ####[facility] Idqglbyrbq5387 [place] [address]Dr. Donna Malone Anion gap [Moles/Vol] 15.7 mmol/L Normal [facility] Comment on above: Performed By: #### C MP, MG ####[facility] Ttegkdpyfv84[address] [place], [place] [address]Dr. Donna Malone AST [Catalytic activity/Vol] 16 U/L Normal 15-37 [facility] Comment on above: Performed By: #### C MP, MG ####[facility] Unvqsmqqhy3965[address] [place], [place] [address]Dr. Donna Malone Bilirubin [Mass/Vol] 0.5 mg/dL Normal 0.2-1.0 [facility] Comment on above: Performed By: #### C MP, MG ####[facility] Utiufkmjxt[address] [place], [place] [address]Dr. Donna Malone Calcium [Mass/Vol] 8.6 mg/dL Normal 8.5-10.1 [facility] Comment on above: Performed By: #### C MP, MG ####[facility] Mmbyputjnl214[address] [place], [place] [address]Dr. Donna Malone Chloride [Moles/Vol] 109 mmol/L Critically high 98-107 [facility] Comment on above: Performed By: #### C MP, MG ####[facility] Pcgpsxpjlc1389[address] [place], [place] [address]Dr. Donna Malone CO2 [Moles/Vol] 21.7 mmol/L Normal 21.0-32.0 [facility] Comment on above: Performed By: #### C MP, MG ####[facility] Hkgllellgy6135[address] [place], [place] [address]Dr. Donna Malone Creatinine [Mass/Vol] 0.99 mg/dL Normal 0.70-1.30 [facility] Comment on above: Performed By: #### C MP, MG ####[facility] Ruyuzkmfia59[address] [place] [id number]. Donna Malone EGFR-AF CZECH >60 Normal >=60 [facility] Comment on above: Performed By: #### C MP, MG ####[facility] Nmklqgnxfx63[address] [place] [id number]. Donna Malone EGFR-NON AF CZECH >60 Normal >=60 [facility] Comment on above: Performed By: #### C MP, MG ####[facility] Zhrkasirpw0576 [place] [id number]. Donna Malone Globulin (S) [Mass/Vol] 3.3 g/dL Normal [facility] Comment on above: Performed By: #### C MP, MG ####[facility] Uuzmrokhqr7674 [place] [address]Dr. Donna Malone Glucose [Mass/Vol] 168 mg/dL Critically high 74-106 [facility] Comment on above: Performed By: #### C MP, MG ####[facility] Omtjzmngme9976 [place] [id number]. Donna Malone Potassium [Moles/Vol] 3.4 mmol/L Critically low 3.5-5.1 [facility] Comment on above: Performed By: #### C MP, MG ####[facility] Ksrtmbufwf30[address] [place] [address]Dr. Donna Malone Protein [Mass/Vol] 6.4 g/dL Normal 6.4-8.2 [facility] Comment on above: Performed By: #### C MP, MG ####[facility] Uysbtaakqi5234 [place] [id number]. Donna Malone Sodium [Moles/Vol] 143 mmol/L Normal 136-145 [facility] Comment on above: Performed By: #### C MP, MG ####[facility] Ziogkduuas6480 [place] [address]Dr. Donna Malone Urea nitrogen [Mass/Vol] 9.0 mg/dL Normal 7.0-18.0 [facility] Comment on above: Performed By: #### C MP, MG ####[facility] Fvhmajuyjq[address] [place], [place] [address]Dr. Donna Malone Urea nitrogen/Creatinine [Mass ratio] 9.1 mg/mg Normal [facility] Comment on above: Performed By: #### C MP, MG ####[facility] Lmihznkavv13[address] [place] [address]Dr. Rubyyvan Malone XR CHEST 2 Von 11-16-2022 XR CHEST 2 V Normal [facility] AMMONIAon 11-15-2022 Ammonia (P) [Moles/Vol] 20 umol/L Normal 11-32 [facility] Comment on above: Performed By: #### A MM ####[facility] Zfxuainyzu730[address] [place], [place] [address]Dr. Donna Faisal CBC AUTO DIFFon 11-15-2022 BASO # 0.0 103/ul Normal 0.0-0.1 [facility] Comment on above: Performed By: #### C BC ####[facility] Rlbgfppaol86[address] [place], [place] [address]Dr. Rubyyvan Malone Basophils/100 WBC (Bld) 0.5 % Normal 0.2-2.0 [facility] Comment on above: Performed By: #### C BC ####[facility] Auglpstnvu37[address] [place], [place] [address]Dr. Donna Faisal EO # 0.1 103/ul Normal 0.0-0.7 [facility] Comment on above: Performed By: #### C BC ####[facility] Ncqmpmlefa8915[address] [place], [place] [address]Dr. Rubyyvan Malone Eosinophils/100 WBC (Bld) 1.4 % Normal 0.9-7.0 [facility] Comment on above: Performed By: #### C BC ####[facility] Mmnxpiyyun2267[address] [place], [place] [address]Dr. Donna Malone Erythrocyte distribution width (RBC) [Ratio] 14.6 % Normal 11.0-15.0 [facility] Comment on above: Performed By: #### C BC ####[facility] Acnqjyczun12[address] [place] [address]Dr. Donna Malone Hematocrit (Bld) [Volume fraction] 36.8 % Critically low 42.0-54.0 [facility] Comment on above: Performed By: #### C BC ####[facility] Vqgakhorpl6495 [place] [address]Dr. Donna Malone Hemoglobin (Bld) [Mass/Vol] 12.1 g/dL Critically low 14.0-18.0 [facility] Comment on above: Performed By: #### C BC ####[facility] Xwgalejwjy5045[address] [place], [place] [address]Dr. Donna Malone IG # 0.01 10e3/ul Normal 0.00-0.03 [facility] Comment on above: Performed By: #### C BC ####[facility] Nnjccixybi4512[address] [place], [place] [address]Dr. Donna Malone IG % 0.2 % Normal 0.0-0.5 [facility] Comment on above: Performed By: #### C BC ####[facility] Gbmsadszeu615[address] [place], [place] [address]Dr. Rubyyvan Malone LYMPH # 1.7 103/ul Normal 1.2-3.8 [facility] Comment on above: Performed By: #### C BC ####[facility] Riivichoxn4869[address] [place], [place] [address]Dr. Donna Malone Lymphocytes/100 WBC (Bld) 27.0 % Normal 20.5-60.0 [facility] Comment on above: Performed By: #### C BC ####[facility] Wffbueynmq48[address] [place], [place] [address]Dr. Rubyyvan Malone MANUAL DIFF REQ NO Normal [facility] Comment on above: Performed By: #### C BC ####[facility] Xwnxtiebva7450[address] [place], [place] [address]Dr. Rubyyvan Malone MCH (RBC) [Entitic mass] 29.5 pg Normal 25.9-34.0 [facility] Comment on above: Performed By: #### C BC ####[facility] Bgvququulo8865 [place] [id number]. Donna Malone MCHC (RBC) [Mass/Vol] 32.9 g/dL Normal 29.9-35.2 [facility] Comment on above: Performed By: #### C BC ####[facility] Ikhqmjmuvd5103 [place] [id number]. Donna Malone MCV (RBC) [Entitic vol] 89.8 fL Normal 80.0-94.0 [facility] Comment on above: Performed By: #### C BC ####[facility] Rbwnjuddkt1201 [place] [id number]. Donna Malone MONO # 0.4 103/ul Normal 0.3-0.8 [facility] Comment on above: Performed By: #### C BC ####[facility] Xxrsokgtzj158[address] [place], [place] [address]Dr. Donna Malone Monocytes/100 WBC (Bld) 6.7 % Normal 1.7-12.0 [facility] Comment on above: Performed By: #### C BC ####[facility] Fjxzkqfrpc[address] [place], [place] [address]Dr. Donna Malone NEUT # 4.0 103/ul Normal 1.4-6.5 [facility] Comment on above: Performed By: #### C BC ####[facility] Awsiewygra9[address] [place], [place] [address]Dr. Donna Malone Neutrophils/100 WBC (Bld) 64.2 % Normal 43.0-75.0 [facility] Comment on above: Performed By: #### C BC ####[facility] Zmxsxrjxhc2302 [place] [phone]. Donna Malone Platelet mean volume (Bld) [Entitic vol] 11.3 fL Normal 9.5-13.5 [facility] Comment on above: Performed By: #### C BC ####[facility] Fdsbspwxuj4[address] [place], [place] [address]Dr. Donna Malone PLT 169 103/ul Normal 150-450 [facility] Comment on above: Performed By: #### C BC ####[facility] Uxucqkmgzc8434 [place] [address]Dr. Donna Malone RBC 4.10 106/ul Critically low 4.70-6.10 [facility] Comment on above: Performed By: #### C BC ####[facility] Euerrcqdsi0541 [place] [address]Dr. Donna Malone WBC 6.3 103/ul Normal 4.0-11.0 [facility] Comment on above: Performed By: #### C BC ####[facility] Nywtwonaze[address] [place], [place] [address]Dr. Donna Malone GLYCOHEMOGLOBIN A1Con 2022 ADA RECOMMENDATION SEE BELOW Normal [facility] Comment on above: Result Comment: ADA RECOMMENDED LIMIT 4.0 - 6.0 ADA THERAPEUTIC TARGET < 7.0 ACTION SUGGESTED > 7.0 Performed By: #### A 1C ####[facility] Pxyjnjuhot275[address] [place], [place] [address]Dr. Donna Malone Glucose [Mass/Vol] 128 mg/dL Normal [facility] Comment on above: Performed By: #### A 1C ####[facility] Fzyztwrgli0037[address] [place], [place] [address]Dr. Donna Malone HbA1c (Bld) [Mass fraction] 6.1 % Normal 4.5-6.2 [facility] Comment on above: Performed By: #### A 1C ####[facility] Spfvkwvpol8760[address] [place], [place] [address]Dr. Donna Malone MAGNESIUMon 11-15-2022 Magnesium [Mass/Vol] 1.6 mg/dL Critically low 1.8-2.4 [facility] Comment on above: Performed By: #### C MP, MG ####[facility] Cmftfagdkh[address] [place], [place] [address]Dr. Donna Malone POINT OF CARE GLUCOSEon Glucose [Mass/Vol] 165 mg/dL Critically high 74-106 [facility] Comment on above: Performed By: #### P OCGLUC ####[facility] Mxdlbfsjwx500[address] [place], [place] [address]Dr. Donna Malone Glucose [Mass/Vol] 155 mg/dL Critically high 74-106 [facility] Comment on above: Performed By: #### P OCGLUC ####[facility] Udykkyaicy350[address] [place] [address]Dr. Donna Malone Glucose [Mass/Vol] 111 mg/dL Critically high 74-106 [facility] Comment on above: Performed By: #### P OCGLUC ####[facility] Lhegfvlvfy7[address] [place] [address]Dr. Donna Malone PROF 14(COMP METB)on 023 Albumin [Mass/Vol] 2.9 g/dL Critically low 3.4-5.0 [facility] Comment on above: Performed By: #### C MP, MG ####[facility] Cbhmtudjcd8437[address] [place], [place] [address]Dr. Donna Malone Albumin/Globulin [Mass ratio] 1.0 {ratio} Normal [facility] Comment on above: Performed By: #### C MP, MG ####[facility] Eguqebagcv1204[address] [place], [place] [address]Dr. Donna Malone ALP [Catalytic activity/Vol] 38 U/L Critically low 46-116 [facility] Comment on above: Performed By: #### C MP, MG ####[facility] Lazyonblah[address] [place], [place] [address]Dr. Donna Malone ALT [Catalytic activity/Vol] 13 U/L Critically low 16-63 [facility] Comment on above: Performed By: #### C MP, MG ####[facility] Gwzobwvfim0991 [place] [address]Dr. Donna Malone Anion gap [Moles/Vol] 11.8 mmol/L Normal [facility] Comment on above: Performed By: #### C MP, MG ####[facility] Orkqfmiemd64[address] [place], [place] [address]Dr. Donna Malone AST [Catalytic activity/Vol] 15 U/L Normal 15-37 [facility] Comment on above: Performed By: #### C MP, MG ####[facility] Frmokxqekv154[address] [place], [place] [address]Dr. Donna Malone Bilirubin [Mass/Vol] 0.4 mg/dL Normal 0.2-1.0 [facility] Comment on above: Performed By: #### C MP, MG ####[facility] Lprvwtviar4841 [place] [address]Dr. Donna Malone Calcium [Mass/Vol] 8.2 mg/dL Critically low 8.5-10.1 [facility] Comment on above: Performed By: #### C MP, MG ####[facility] Pxfckghwff350[address] [place], [place] [address]Dr. Donna Malone Chloride [Moles/Vol] 111 mmol/L Critically high 98-107 [facility] Comment on above: Performed By: #### C MP, MG ####[facility] Zxrnwmenaw9[address] [place], [place] [address]Dr. Donna Malone CO2 [Moles/Vol] 27.9 mmol/L Normal 21.0-32.0 [facility] Comment on above: Performed By: #### C MP, MG ####[facility] Ywsrxgindp[address] [place], [place] [address]Dr. Donna Malone Creatinine [Mass/Vol] 0.99 mg/dL Normal 0.70-1.30 [facility] Comment on above: Performed By: #### C MP, MG ####[facility] Evtbrbdgvg27[address] [place], [place] [address]Dr. Donna Malone EGFR-AF CZECH >60 Normal >=60 [facility] Comment on above: Performed By: #### C MP, MG ####[facility] Oxtlwoagme[address] [place], [place] [address]Dr. Donna Faisal EGFR-NON AF CZECH >60 Normal >=60 [facility] Comment on above: Performed By: #### C MP, MG ####[facility] Wlninluylv18[address] [place], [place] [address]Dr. Donna Malone Globulin (S) [Mass/Vol] 2.9 g/dL Normal [facility] Comment on above: Performed By: #### C MP, MG ####[facility] Yqsrqsftsz[address] [place], [place] [address]Dr. Donna Malone Glucose [Mass/Vol] 88 mg/dL Normal 74-106 [facility] Comment on above: Performed By: #### C MP, MG ####[facility] Gnlibichri[address] [place] [address]Dr. Donna Malone Potassium [Moles/Vol] 3.7 mmol/L Normal 3.5-5.1 [facility] Comment on above: Performed By: #### C MP, MG ####[facility] Bgukdkwkzh[address] [place] [address]Dr. Donna Malone Protein [Mass/Vol] 5.8 g/dL Critically low 6.4-8.2 [facility] Comment on above: Performed By: #### C MP, MG ####[facility] [address]ecapsjddo[address] [place] [address]Dr. Donna Malone Sodium [Moles/Vol] 147 mmol/L Critically high 136-145 [facility] [place] Comment on above: Performed By: #### C MP, MG ####[facility] Dxuscbezlo[address] [place], [place] [address]Dr. Donna Malone Urea nitrogen [Mass/Vol] 12.0 mg/dL Normal 7.0-18.0 [facility] Comment on above: Performed By: #### C MP, MG ####[facility] Epahgyglof[address] [place] [address]Dr. Donna Malone Urea nitrogen/Creatinine [Mass ratio] 12.1 mg/mg Normal [facility] Comment on above: Performed By: #### C MP, MG ####[facility] Fdpujwtarj59[address] [place] [address]Dr. Donna Malone ACETONE SERUMon 11-14-2022 ACETONE Negative Normal NEGATIVE [facility] Comment on above: Performed By: #### A CETON ####[facility] Jpgrtpbzuz4502 [place] [address]Dr. Donna Malone AMMONIAon 11-14-2022 Ammonia (P) [Moles/Vol] 17 umol/L Normal 11-32 [facility] Comment on above: Performed By: #### A MM ####[facility] Elxbmqdnvd3074 [place] [address]Dr. Donna Malone BLOOD GASES BTYon 11-14-2022 02 MODE ROOM AIR Normal [facility] Comment on above: Performed By: #### A BG ####[facility] Huemtshfaz88[address] [place] [address]Dr. Donna Malone ALLENS TEST Positive [facility] Comment on above: Performed By: #### A BG ####[facility] Panrhgcftb3606 [place] [address]Dr. Donna Malone Base excess Calc (Bld) [Moles/Vol] 1.1 mmol/L Normal -2.0-2.0 [facility] Comment on above: Performed By: #### A BG ####[facility] Icasrsybns8180 [place] [address]Dr. Donna Malone BIPAP PRESSURE [facility] Comment on above: Performed By: #### A BG ####[facility] Oanjogzuub[address] [place], [place] [address]Dr. Donna Malone CPAP [facility] Comment on above: Performed By: #### A BG ####[facility] Mntbrudgwn[address] [place], [place] [address]Dr. Donna Malone FIO2 [facility] Comment on above: Performed By: #### A BG ####[facility] Zcppadqhuz707[address] [place], [place] [address]Dr. Donna Malone HCO3 (Bld) [Moles/Vol] 26.0 mmol/L Normal 22.0-26.0 [facility] Comment on above: Performed By: #### A BG ####[facility] Lnvgxmowaz3933 [place] [address]Dr. Donna Malone LPM [facility] Comment on above: Performed By: #### A BG ####[facility] Mdvkrtrmnb[address] [place], [place] [address]Dr. Donna Malone MINUTE VOLUME Normal [facility] Comment on above: Performed By: #### A BG ####[facility] Yvcijqhvex116[address] [place], [place] [address]Dr. Donna Malone Oxygen (Bld) [Partial pressure] 62.0 mm[Hg] Critically low 80.0-100.0 [facility] Comment on above: Performed By: #### A BG ####[facility] Pfrabzzdtz7[address] [place], [place] [address]Dr. Donna Malone Oxygen saturation in Blood 91.9 % Critically low 95.0-100.0 [facility] Comment on above: Performed By: #### A BG ####[facility] Vneyjcduub[address] [place], [place] [address]Dr. Donna Malone PCO2 42.8 mmHg Normal 35.0-45.0 [facility] Comment on above: Performed By: #### A BG ####[facility] Lwwvdwfpek[address] [place], [place] [address]Dr. Donna Malone PEEP [facility] Comment on above: Performed By: #### A BG ####[facility] Pyasrwzjye494[address] [place], [place] [address]Dr. Donna Malone pH (Bld) 7.392 [pH] Normal 7.350-7.45 0 [facility] Comment on above: Performed By: #### A BG ####[facility] Dhcnrkgvll465[address] [place], [place] [address]Dr. Donna Malone PIP [facility] Comment on above: Performed By: #### A BG ####[facility] Pflixwgmfn040[address] [place], [place] [address]Dr. Donna Malone PS [facility] Comment on above: Performed By: #### A BG ####[facility] Xdobwoyorr[address] [place], [place] [address]Dr. Donna Malone PUNCTURE SITE LR [facility] Comment on above: Performed By: #### A BG ####[facility] Etmydaxnwn[address] [place], [place] [address]Dr. Donna Malone RATE [facility] Comment on above: Performed By: #### A BG ####[facility] Osqtkosbtp80[address] [place], [place] [address]Dr. Donna Malone VENT MODE [facility] Comment on above: Performed By: #### A BG ####[facility] Kqhbcxrwhw0040 [place] [address]Dr. Donna Malone VT Normal [facility] Comment on above: Performed By: #### A BG ####[facility] Leljpqkfyp[address] [place], [place] [address]Dr. Donna Faisal BNPon 11-14-2022 Natriuretic peptide B (Bld) [Mass/Vol] 148.0 pg/mL Normal <=900.0 [facility] Comment on above: Performed By: #### B BANK CASHIER, CMP, HSTROPN ####[facility] Fspvqijtnq63[address] [place], [place] [address]Dr. Donna Malone CBC AUTO DIFFon 11-14-2022 BASO # 0.0 103/ul Normal 0.0-0.1 [facility] Comment on above: Performed By: #### C BC ####[facility] Ecpdpyusnm[address] [place], [place] [address]Dr. Donna Malone Basophils/100 WBC (Bld) 0.5 % Normal 0.2-2.0 [facility] Comment on above: Performed By: #### C BC ####[facility] Egkzfqovnw1634[address] [place], [place] [address]Dr. Donna Malone EO # 0.1 103/ul Normal 0.0-0.7 [facility] Comment on above: Performed By: #### C BC ####[facility] Ygpmzaoabf36[address] [place], [place] [address]Dr. Donna Malone Eosinophils/100 WBC (Bld) 0.6 % Critically low 0.9-7.0 [facility] Comment on above: Performed By: #### C BC ####[facility] Bqimgtysnz232[address] [place], [place] [address]Dr. Donna Malone Erythrocyte distribution width (RBC) [Ratio] 14.8 % Normal 11.0-15.0 [facility] Comment on above: Performed By: #### C BC ####[facility] Nokmvyzlbn[address] [place], [place] [address]Dr. Donna Malone Hematocrit (Bld) [Volume fraction] 41.9 % Critically low 42.0-54.0 [facility] Comment on above: Performed By: #### C BC ####[facility] Zyxhhablpl4549 [place] [address]DrElizabeth Malone Hemoglobin (Bld) [Mass/Vol] 13.6 g/dL Critically low 14.0-18.0 [facility] Comment on above: Performed By: #### C BC ####[facility] Mqqtqxvhny4318 [place] [address]DrElizabeth Malone IG # 0.01 10e3/ul Normal 0.00-0.03 [facility] Comment on above: Performed By: #### C BC ####[facility] Fjnamehcvl22[address] [place], [place] [address]DrElizabeth Malone IG % 0.1 % Normal 0.0-0.5 [facility] Comment on above: Performed By: #### C BC ####[facility] Pwkhglsekd694[address] [place], [place] [address]DrElizabeth Malone LYMPH # 1.7 103/ul Normal 1.2-3.8 [facility] Comment on above: Performed By: #### C BC ####[facility] Wvmayeemgb[address] [place], [place] [address]DrElizabeth Malone Lymphocytes/100 WBC (Bld) 21.2 % Normal 20.5-60.0 [facility] Comment on above: Performed By: #### C BC ####[facility] Pimqgjrcex01[address] [place], [place] [address]DrElizabeth Malone MANUAL DIFF REQ NO Normal [facility] Comment on above: Performed By: #### C BC ####[facility] Hwsqsfbjwn0283 [place] [address]DrElizabeth Malone MCH (RBC) [Entitic mass] 29.2 pg Normal 25.9-34.0 [facility] Comment on above: Performed By: #### C BC ####[facility] Bltyifqpua8207 [place] [address]DrElizabeth Malone MCHC (RBC) [Mass/Vol] 32.5 g/dL Normal 29.9-35.2 [facility] Comment on above: Performed By: #### C BC ####[facility] Eiibqqqmsy4623 [place] [address]Dr. Donna Malone MCV (RBC) [Entitic vol] 90.1 fL Normal 80.0-94.0 [facility] Comment on above: Performed By: #### C BC ####[facility] Hammnauanh5440 [place] [address]Dr. Donna Faisal MONO # 0.4 103/ul Normal 0.3-0.8 [facility] Comment on above: Performed By: #### C BC ####[facility] Yugvmfmvcl4724 [place] [address]Dr. Rubyyvan Malone Monocytes/100 WBC (Bld) 5.5 % Normal 1.7-12.0 [facility] Comment on above: Performed By: #### C BC ####[facility] Tdgwlbvepc[address] [place], [place] [address]Dr. Donna Malone NEUT # 5.7 103/ul Normal 1.4-6.5 [facility] Comment on above: Performed By: #### C BC ####[facility] Chmmrupwdv86[address] [place], [place] [address]Dr. Rubyyvan Malone Neutrophils/100 WBC (Bld) 72.1 % Normal 43.0-75.0 [facility] Comment on above: Performed By: #### C BC ####[facility] Kfkalrxohm[address] [place], [place] [address]Dr. Donna Malone Platelet mean volume (Bld) [Entitic vol] 11.5 fL Normal 9.5-13.5 [facility] Comment on above: Performed By: #### C BC ####[facility] Koswuqhkdl[address] [place], [place] [address]Dr. Donna Malone PLT 193 103/ul Normal 150-450 [facility] Comment on above: Performed By: #### C BC ####[facility] Czbmsaqnhb6262 [place] [id number]. Donna Malone RBC 4.65 106/ul Critically low 4.70-6.10 [facility] Comment on above: Performed By: #### C BC ####[facility] Dwthkyjmis9[address] [place] [id number]. Donna Malone WBC 7.9 103/ul Normal 4.0-11.0 [facility] Comment on above: Performed By: #### C BC ####[facility] Nhimevkobv6[address] [place] [phone]. Donna Malone CT HEAD WO CONon 11-14-2022 CT HEAD WO CON Normal [facility] CULTURE BLOODon 11-14-2022 Microscopic examination of blood, culture Culture Observations: NO GROWTH AT 5 DAYS. Normal [facility] Comment on above: Performed By: #### B LDCX2 ####[facility] Phcayvijlv7509 [place] [address]Dr. Donna Malone Microscopic examination of blood, culture Culture Observations: NO GROWTH AT 5 DAYS. Normal [facility] Comment on above: Performed By: #### B LDCX1 ####[facility] Jkapljzmye1446 [place] [phone]. Donna Malone Covid-19 PCR (CVDTB)on SARS-CoV-2 (COVID-19) RNA JOSÉ MIGUEL+probe Ql (Unsp spec) Not detected Normal NOT DETECTED [facility] Comment on above: Result Comment: [...] for this test is supported by the [place] of [employer] and [employer] Service's declaration that [...] be used). Performed By: #### C VDTBH ####[facility] Dpezexflax4327 [place] [address]Dr. Donna Malone DRUG SCREEN RAPID (URINE)on 11-14-2022 AMP Negative Normal NEGATIVE [facility] Comment on above: Performed By: #### D SHARONA, ERUR ####[facility] Ldchqhsstm16[address] [place] [address]Dr. Donna Malone BAR Negative Normal NEGATIVE [facility] Comment on above: Performed By: #### D RUGRPD, ERUR ####[facility] Lrpurnicde2103 [place] [address]Dr. Donna Malone BUP Negative Normal NEGATIVE [facility] Comment on above: Performed By: #### D SHARONA, ERUR ####[facility] Uepmmyrngr5816 [place] [address]Dr. Donna Malone BZO Negative Normal NEGATIVE [facility] Comment on above: Performed By: #### D KAMRYND, ERUR ####[facility] Hjlqxybwnw30[address] [place] [address]Dr. Donna Malone EVONNE Negative Normal NEGATIVE [facility] Comment on above: Performed By: #### D SHARONA, ERUR ####[facility] Vjlhzderzu[address] [place] [address]Dr. Donna Malone CUT-OFFS SEE BELOW Normal [facility] Comment on above: Result Comment: [...] ng/mL Performed By: #### D RUGRPD, ERUR ####[facility] Runtnumrnt20[address] [place] [phone]. Donna Malone DRUG CUT HEADER DRUG CLASS TEST SYST EM CUT-OFF CONCENTRATIONS ARE FOLLOWS: Normal [facility] Comment on above: Performed By: #### D SHARONA, ERUR ####[facility] Ywjshpndsj8546 [place] [phone]. Donna Malone mAMP Negative Normal NEGATIVE [facility] Comment on above: Performed By: #### D SHARONA, ERUR ####[facility] Nnmqmewtwk5279 [place] [phone]. Donna Malone MTD Negative Normal NEGATIVE [facility] Comment on above: Performed By: #### D SHARONA, ERUR ####[facility] Tnpvcpkurh0510 [place] [phone]. Donna Malone OPI Negative Normal NEGATIVE [facility] Comment on above: Performed By: #### D SHARONA, ERUR ####[facility] Adaloiufyy8814 [place] [address]Dr. Yilan Malone OXY Negative Normal NEGATIVE [facility] Comment on above: Performed By: #### Calvin TABOR, ERUR ####[facility] Djqzcwkxzk2169 [place] [phone]. Donna Malone PCP Negative Normal NEGATIVE [facility] Comment on above: Performed By: #### Calvin TABOR, ERUR ####[facility] Obawoixpma[address] [place] [address]Dr. Rubylan Malone PPX Negative Normal NEGATIVE [facility] Comment on above: Performed By: #### D SHARONA, ERUR ####[facility] Ciqzvbneaw3401 [place] [phone]. Donna Malone TCA Positive Abnormal NEGATIVE [facility] Comment on above: Performed By: #### D SHARONA, ERUR ####[facility] Rljjktyldp7726 [place] [phone]. Donna Malone THC Negative Normal NEGATIVE [facility] Comment on above: Performed By: #### Calvin TABOR, ERUR ####[facility] Ytrfzeobpx5446 [place] [address]Dr. Donna Malone ER URINE PROFILEon 3 Bilirubin Ql (U) MODERATE Abnormal NEGATIVE [facility] Comment on above: Performed By: #### Calvin TABOR, ERUR ####[facility] Hivuxgctpw0434 [place] [address]Dr. Donna Malone Clarity (U) CLEAR Normal CLEAR [facility] Comment on above: Performed By: #### Calvin TABOR ERUR ####[facility] Marrggzdrt[address] [place], [place] [address]Dr. Donna Malone Color (U) DK. YELLOW Normal YELLOW [facility] Comment on above: Performed By: #### Calvin TABOR ERUR ####[facility] Bwdegusnlf[address] [place], [place] [address]Dr. Donna JARRELLAHD A micrscopic examina tion will be performed if indicated. Normal [facility] Comment on above: Performed By: #### Calvin TABOR ERUR ####[facility] Nvajjyifda[address] [place], [place] [address]Dr. Donna Malone Glucose Ql (U) Negative Normal NEGATIVE [facility] Comment on above: Performed By: #### WESLY LAUR ####[facility] Qexardclhb60[address] [place], [place] [address]Dr. Donna Malone Hemoglobin Ql (U) Negative Normal NEGATIVE [facility] Comment on above: Performed By: #### Calvin TABOR ERUR ####[facility] Ogselccbbp[address] [place], [place] [address]Dr. Donna Malone Ketones Ql (U) 40 mg/dl Abnormal NEGATIVE [facility] Comment on above: Performed By: #### Calvin TABOR ERUR ####[facility] Asjpuzbfyg[address] [place], [place] [address]Dr. Donna Malone LEUKOCYTES Negative Normal NEGATIVE [facility] Comment on above: Performed By: #### WESLY LAUR ####[facility] Oofltiznle[address] [place], [place] [address]Dr. Donna Malone Nitrite Ql (U) Negative Normal NEGATIVE [facility] Comment on above: Performed By: #### D SHARONA, ERUR ####[facility] Giramwpgxg3619 [place] [address]Dr. Donna Malone pH (U) 6.0 [pH] Normal 5-9 [facility] Comment on above: Performed By: #### D SHARONA, ERUR ####[facility] Krmaypiltn1580 [place] [address]Dr. Donna Malone SPEC GRAVITY 1.030 Abnormal 1.005-<=1. 025 [facility] Comment on above: Performed By: #### Calvin TABOR, ERUR ####[facility] Qcskonacdx6402 [place] [address]Dr. Donna Malone UA PROTEIN TRACE Normal NEGATIVE/ TRACE [facility] Comment on above: Performed By: #### Calvin TABOR, ERUR ####[facility] Pyzosncwkm0[address] [place], [place] [address]Dr. Donna Malone UR MICRO IND NOT INDICATED Normal [facility] Comment on above: Performed By: #### Calvin TABOR, ERUR ####[facility] Dlgqnienly[address] [place], [place] [address]Dr. Donna Malone Urobilinogen Qn (U) 1.0 {Jermain'U}/dL Normal 0.2 - 1. 0 [facility] Comment on above: Performed By: #### Calvin TABOR, ERUR ####[facility] Symkxwzndc[address] [place], [place] [address]Dr. Donna Malone LACTATE/LACTIC ACIDon 2022 Lactate [Moles/Vol] 1.6 mmol/L Normal 0.4-1.9 [facility] Comment on above: Performed By: #### L ACT ####[facility] Xcvjfwmgdi[address] [place], [place] [address]Dr. Donna Malone PROF 14(COMP METB)on 023 Albumin [Mass/Vol] 3.4 g/dL Normal 3.4-5.0 [facility] Comment on above: Performed By: #### B BANK CASHIER, CMP, HSTROPN ####[facility] Qcueogsmhs9084 [place] [address]Dr. Rubyyvan Faisal Albumin/Globulin [Mass ratio] 1.0 {ratio} Normal [facility] Comment on above: Performed By: #### B BANK CASHIER, CMP, HSTROPN ####[facility] Whkbdzovoq3953 [place] [address]Dr. Donna Malone ALP [Catalytic activity/Vol] 48 U/L Normal 46-116 [facility] Comment on above: Performed By: #### B BANK CASHIER, CMP, HSTROPN ####[facility] Empshekfvq4977 [place] [address]Dr. Donna Malone ALT [Catalytic activity/Vol] 13 U/L Critically low 16-63 [facility] Comment on above: Performed By: #### B BANK CASHIER, CMP, HSTROPN ####[facility] Aavohrkfrn7535 [place] [address]Dr. Donna Malone Anion gap [Moles/Vol] 13.2 mmol/L Normal [facility] Comment on above: Performed By: #### B BANK CASHIER, CMP, HSTROPN ####[facility] Rfnrtflyuu6258 [place] [address]Dr. Donna Malone AST [Catalytic activity/Vol] 13 U/L Critically low 15-37 [facility] Comment on above: Performed By: #### B BANK CASHIER, CMP, HSTROPN ####[facility] Jsexxlulwq7494 [place] [address]Dr. Donna Malone Bilirubin [Mass/Vol] 0.4 mg/dL Normal 0.2-1.0 [facility] Comment on above: Performed By: #### B BANK CASHIER, CMP, HSTROPN ####[facility] Efeebblkcv4813 [place] [address]Dr. Donna Malone Calcium [Mass/Vol] 9.2 mg/dL Normal 8.5-10.1 [facility] Comment on above: Performed By: #### B BANK CASHIER, CMP, HSTROPN ####[facility] Ivacdvtlde299[address] [place] [address]Dr. Donna Malone Chloride [Moles/Vol] 108 mmol/L Critically high 98-107 [facility] Comment on above: Performed By: #### B BANK CASHIER, CMP, HSTROPN ####[facility] Zzbteojagc9660 [place] [address]Dr. Donna Malone CO2 [Moles/Vol] 27.0 mmol/L Normal 21.0-32.0 [facility] Comment on above: Performed By: #### B BANK CASHIER, CMP, HSTROPN ####[facility] Ptrhmyxpnj5462 [place] [address]Dr. Donan Malone Creatinine [Mass/Vol] 1.14 mg/dL Normal 0.70-1.30 [facility] Comment on above: Performed By: #### B BANK CASHIER, CMP, HSTROPN ####[facility] Havcrnoolj[address] [place], [place] [address]Dr. Donna Malone EGFR-AF CZECH >60 Normal >=60 [facility] Comment on above: Performed By: #### B BANK CASHIER, CMP, HSTROPN ####[facility] Pbzymfxxzh[address] [place], [place] [address]Dr. Donna Malone EGFR-NON AF CZECH >60 Normal >=60 [facility] Comment on above: Performed By: #### B BANK CASHIER, CMP, HSTROPN ####[facility] Jeylpxbwop4531 [place] [address]Dr. Donna Malone Globulin (S) [Mass/Vol] 3.5 g/dL Normal [facility] Comment on above: Performed By: #### B BANK CASHIER, CMP, HSTROPN ####[facility] Qcwnrydkxi3091 [place] [address]Dr. Donna Malone Glucose [Mass/Vol] 126 mg/dL Critically high 74-106 [facility] Comment on above: Performed By: #### B BANK CASHIER, CMP, HSTROPN ####[facility] Jrmmtarfwx5613 [place] [address]Dr. Donna Malone Potassium [Moles/Vol] 4.2 mmol/L Normal 3.5-5.1 [facility] Comment on above: Performed By: #### B BANK CASHIER, CMP, HSTROPN ####[facility] Faqxfoasbt7866 [place] [address]Dr. Donna Malone Protein [Mass/Vol] 6.9 g/dL Normal 6.4-8.2 [facility] Comment on above: Performed By: #### B BANK CASHIER, CMP, HSTROPN ####[facility] Lzdtpmujgy2256 [place] [address]Dr. Donna Malone Sodium [Moles/Vol] 144 mmol/L Normal 136-145 [facility] Comment on above: Performed By: #### B BANK CASHIER, CMP, HSTROPN ####[facility] Lfckdsxelz2078 [place] [address]Dr. Donna Malone Urea nitrogen [Mass/Vol] 17.0 mg/dL Normal 7.0-18.0 [facility] Comment on above: Performed By: #### B BANK CASHIER, CMP, HSTROPN ####[facility] Orgfhifwmv0674 [place] [address]Dr. Donna Malone Urea nitrogen/Creatinine [Mass ratio] 14.9 mg/mg Normal [facility] Comment on above: Performed By: #### B BANK CASHIER, CMP, HSTROPN ####[facility] Nuydddbyoa17[address] [place] [address]Dr. Donna Malone TROPONIN, HIGH SENSITIVITYon 11-14-2022 HSTROP 11.2 pg/mL Normal 4.0-76.1 [facility] Comment on above: Result Comment: CUT- OFF POINTS HAVE BEEN ESTABLISHED BASED ON THE FOURTH UNIVERSAL DEFINITIONS OF MYOCARDIALINFARCTION. THE UPPER REFERENCE LIMIT (URL) OF TROPONIN, DEFINED THE 99TH PERCENTILE OFcTnI DISTRIBUTION IN A REFERENCE POPULATION, HAS BEEN CONFIRMED THE DECISION THRESHOLDFOR [place] DIAGNOSIS. Performed By: #### B BANK CASHIER, CMP, HSTROPN ####[facility] Qfiztvdcsd1468 [place] [address]Dr. Donna Malone XR CHEST 1 Von 11-14-2022 XR CHEST 1 V Normal [facility] XR lumbar spine AP/LAT/FLX/E XTon 11-01-2022 XR lumbar spine AP/LAT/FLX/EXT [facility] [address] [place] [address] XRay Report Signed Patient: Taylor Mcclellan SR MR#: [id number] : 1955 Acct:[id number] Age/Sex: 67 / M ADM Date: 11/01/22 Loc: XD Room: Type: [facility] Attending Dr: Benson Lane MD Copies to: [...] Mj Rodriguez M.D.11/01/2022 3:07 PM Dictation Location: [place] [address] Transcribed By: [facility] 11/01/22 1507 Dictated By: Mj Rodriguez II, MD 11/01/22 1508 Signed By: 11/01/22 1507 Normal [facility] ER URINE PROFILEon 3 Bilirubin Ql (U) Negative Normal NEGATIVE [facility] Comment on above: Performed By: #### E RUR ####[facility] Xmbqtegtic3237 [place] [address]Dr. Donna Malone Clarity (U) CLEAR Normal CLEAR [facility] Comment on above: Performed By: #### E RUR ####[facility] Mkhnqtlnyo7[address] [place], [place] [address]Dr. Donna Malone Color (U) YELLOW Normal YELLOW [facility] Comment on above: Performed By: #### E RUR ####[facility] Cslmilusrt255[address] [place], [place] [address]Dr. Donna Malone ERUAHD A micrscopic examina tion will be performed if indicated. Normal [facility] Comment on above: Performed By: #### E RUR ####[facility] Ejfbzxwklj64[address] [place], [place] [address]Dr. Donna Malone Glucose Ql (U) 250 mg/dl Abnormal NEGATIVE [facility] Comment on above: Performed By: #### E RUR ####[facility] Lxgitknrje912[address] [place], [place] [address]Dr. Donna Malone Hemoglobin Ql (U) TRACE-INTACT Abnormal NEGATIVE [facility] Comment on above: Performed By: #### E RUR ####[facility] Thpuqcxtjq614[address] [place], [place] [address]Dr. Donna Malone Ketones Ql (U) Negative Normal NEGATIVE [facility] Comment on above: Performed By: #### E RUR ####[facility] Jvpqlbugon999[address] [place], [place] [address]Dr. Donna Malone LEUKOCYTES Negative Normal NEGATIVE [facility] Comment on above: Performed By: #### E RUR ####[facility] Axooscpjge532[address] [place], [place] [address]Dr. Donna Malone Nitrite Ql (U) Negative Normal NEGATIVE [facility] Comment on above: Performed By: #### E RUR ####[facility] Wgwejxjqcv134[address] [place], [place] [address]Dr. Donna Malone pH (U) 5.5 [pH] Normal 5-9 [facility] Comment on above: Performed By: #### E RUR ####[facility] Ryfpmdspcf819[address] [place], [place] [address]Dr. Donna Malone SPEC GRAVITY 1.025 Normal 1.005-<=1. 025 [facility] Comment on above: Performed By: #### E RUR ####[facility] Brubjenwab2226[address] [place], [place] [address]Dr. Donna Malone UA PROTEIN Negative Normal NEGATIVE/ TRACE [facility] Comment on above: Performed By: #### E RUR ####[facility] Scoxpyzqgk9[address] [place], [place] [address]Dr. Donna Malone UR MICRO IND NOT INDICATED Normal [facility] Comment on above: Performed By: #### E RUR ####[facility] Qhmnzpvlww5526[address] [place], [place] [address]Dr. Donna Malone Urobilinogen Qn (U) 0.2 {Jermain'U}/dL Normal 0.2 - 1. 0 [facility] Comment on above: Performed By: #### E RUR ####[facility] Zeqrhrzbdc898[address] [place], [place] [address]Dr. Donna Malone CBC AUTO DIFFon 10-26-2022 BASO # 0.0 103/ul Normal 0.0-0.1 [facility] Comment on above: Performed By: #### C BC ####[facility] Lhutxkvdqz313[address] [place], [place] [address]Dr. Donna Faisal Basophils/100 WBC (Bld) 0.4 % Normal 0.2-2.0 [facility] Comment on above: Performed By: #### C BC ####[facility] Mtohoukhhn9299[address] [place], [place] [address]Dr. Donna Malone EO # 0.0 103/ul Normal 0.0-0.7 [facility] Comment on above: Performed By: #### C BC ####[facility] Nktrcnxprg5439[address] [place], [place] [address]Dr. Donna Faisal Eosinophils/100 WBC (Bld) 0.0 % Critically low 0.9-7.0 [facility] Comment on above: Performed By: #### C BC ####[facility] Vdnzzwhtmp5034[address] [place], [place] [address]Dr. Donna Faisal Erythrocyte distribution width (RBC) [Ratio] 14.5 % Normal 11.0-15.0 [facility] Comment on above: Performed By: #### C BC ####[facility] [address]xuotx[address] [place] [address]Dr. Donna Malone Hematocrit (Bld) [Volume fraction] 41.2 % Critically low 42.0-54.0 [facility] Comment on above: Performed By: #### C BC ####[facility] Bhaudldzfp4449[address] [place], [place] [address]Dr. Rubyyvan Malone Hemoglobin (Bld) [Mass/Vol] 13.7 g/dL Critically low 14.0-18.0 [facility] Comment on above: Performed By: #### C BC ####[facility] Hjkbqvbifb4822[address] [place], [place] [address]Dr. Donna Malone IG # 0.02 10e3/ul Normal 0.00-0.03 [facility] Comment on above: Performed By: #### C BC ####[facility] Cpsktxrxbi995[address] [place], [place] [address]Dr. Rubyyvan Malone IG % 0.2 % Normal 0.0-0.5 [facility] Comment on above: Performed By: #### C BC ####[facility] Fojicmhshp299[address] [place], [place] [address]Dr. Donna Malone LYMPH # 1.2 103/ul Normal 1.2-3.8 [facility] Comment on above: Performed By: #### C BC ####[facility] Kkgfwjoqln648[address] [place], [place] [address]Dr. Donna Malone Lymphocytes/100 WBC (Bld) 14.4 % Critically low 20.5-60.0 [facility] Comment on above: Performed By: #### C BC ####[facility] Gatgtojbzq9836[address] [place], [place] [address]Dr. Donna Malone MANUAL DIFF REQ NO Normal [facility] Comment on above: Performed By: #### C BC ####[facility] Hpejnkjflo4745[address] [place], [place] [address]Dr. Donna Malone MCH (RBC) [Entitic mass] 29.4 pg Normal 25.9-34.0 [facility] Comment on above: Performed By: #### C BC ####[facility] Lrtklnzlbt4536[address] [place], [place] [address]Dr. Donna Malone MCHC (RBC) [Mass/Vol] 33.3 g/dL Normal 29.9-35.2 [facility] Comment on above: Performed By: #### C BC ####[facility] Gdsbtlkvmt869[address] [place], [place] [address]Dr. Rubyyvan Malone MCV (RBC) [Entitic vol] 88.4 fL Normal 80.0-94.0 [facility] Comment on above: Performed By: #### C BC ####[facility] Rnygxhyxti908[address] [place], [place] [address]Dr. Donna Malone MONO # 0.2 103/ul Critically low 0.3-0.8 [facility] Comment on above: Performed By: #### C BC ####[facility] Dqwkkucxba055[address] [place], [place] [address]Dr. Donna Malone Monocytes/100 WBC (Bld) 2.5 % Normal 1.7-12.0 [facility] Comment on above: Performed By: #### C BC ####[facility] Rxcovvdesy8547[address] [place], [place] [address]Dr. Donna Malone NEUT # 6.9 103/ul Critically high 1.4-6.5 [facility] Comment on above: Performed By: #### C BC ####[facility] Hthokrhwjd1907[address] [place], [place] [address]Dr. Donna Malone Neutrophils/100 WBC (Bld) 82.5 % Critically high 43.0-75.0 [facility] Comment on above: Performed By: #### C BC ####[facility] Rqzriblbok154[address] [place], [place] [address]Dr. Donna Malone Platelet mean volume (Bld) [Entitic vol] 11.3 fL Normal 9.5-13.5 [facility] Comment on above: Performed By: #### C BC ####[facility] [address] [place] [id number]. Donna Malone PLT 241 103/ul Normal 150-450 [facility] Comment on above: Performed By: #### C BC ####[facility] [address]axqyq4[address] [place] [address]Dr. Donna Malone RBC 4.66 106/ul Critically low 4.70-6.10 [facility] Comment on above: Performed By: #### C BC ####[facility] Qncyaxvwbb79[address] [place] [id number]. Donna aMlone WBC 8.4 103/ul Normal 4.0-11.0 [facility] Comment on above: Performed By: #### C BC ####[facility] Untvpabwio3[address] [place] [address]Dr. Donna Malone CRPon 10-26-2022 CRP [Mass/Vol] mg/L Normal <=1.0 [facility] Comment on above: Performed By: #### C RP, BMP ####[facility] Uhqpdiyowx5815[address] [place], [place] [address]Dr. Donna Malone CT LSPINE WO CONon 3 CT LSPINE WO CON Normal [facility] PROF CHEM 8 (BAS METB)on Anion gap [Moles/Vol] 11.9 mmol/L Normal [facility] Comment on above: Performed By: #### C RP, BMP ####[facility] Mfzfjqdtfc0539[address] [place], [place] [address]Dr. Donna Malone Calcium [Mass/Vol] 9.1 mg/dL Normal 8.5-10.1 [facility] Comment on above: Performed By: #### C RP, BMP ####[facility] [address]xv[address] [place] [address]Dr. Donna Faisal Chloride [Moles/Vol] 104 mmol/L Normal 98-107 [facility] Comment on above: Performed By: #### C RP, BMP ####[facility] P[address]alhez[address] [place] [address]Dr. Rubyyvan Malone CO2 [Moles/Vol] 26.3 mmol/L Normal 21.0-32.0 [facility] Comment on above: Performed By: #### C RP, BMP ####[facility] Offtuivxso[address] [place] [id number]. Donna Malone Creatinine [Mass/Vol] 0.99 mg/dL Normal 0.70-1.30 [facility] Comment on above: Performed By: #### C RP, BMP ####[facility] Bakpyoksxh16[address] [place] [id number]. Donna Malone EGFR-AF CZECH >60 Normal >=60 [facility] Comment on above: Performed By: #### C RP, BMP ####[facility] Boxbywpfru[address] [place] [id number]. Donna Malone EGFR-NON AF CZECH >60 Normal >=60 [facility] Comment on above: Performed By: #### C RP, BMP ####[facility] Yezjmh[address]ral[address] [place] [address]Dr. Donna Malone Glucose [Mass/Vol] 152 mg/dL Critically high 74-106 [facility] Comment on above: Performed By: #### C RP, BMP ####[facility] Hfoizrnqht1760 [place] [id number]. Donna Malone Potassium [Moles/Vol] 4.2 mmol/L Normal 3.5-5.1 [facility] Comment on above: Performed By: #### C RP, BMP ####[facility] Nvrssbiwyv4[address] [place] [address]Dr. Donna Malone Sodium [Moles/Vol] 138 mmol/L Normal 136-145 [facility] Comment on above: Performed By: #### C RP, BMP ####[facility] Xvztlrrgac6765 [place] [id number]. Donna Malone Urea nitrogen [Mass/Vol] 12.0 mg/dL Normal 7.0-18.0 [facility] Comment on above: Performed By: #### C RP, BMP ####[facility] Wrubrxqcps9[address] [place] [id number]. Donna Malone Urea nitrogen/Creatinine [Mass ratio] 12.1 mg/mg Normal [facility] Comment on above: Performed By: #### C RP, BMP ####[facility] Yqtzotllik5890[address] [place], [place] [address]Dr. Donna Malone SED RATE WESTERGRENon 2022 SED RATE 57 mm/hr Critically high <=20 [facility] Comment on above: Performed By: #### S EDR ####[facility] Izlnvkifkt0523[address] [place], [place] [address]Dr. Donna Malone CBC AUTO DIFFon 10-25-2022 BASO # 0.0 103/ul Normal 0.0-0.1 [facility] Comment on above: Performed By: #### C BC ####[facility] Xukoqpfjoi2504[address] [place], [place] [address]DrElizabeth Malone Basophils/100 WBC (Bld) 0.4 % Normal 0.2-2.0 [facility] Comment on above: Performed By: #### C BC ####[facility] Zejwoqlgfx1644[address] [place], [place] [address]DrElizabeth Malone EO # 0.0 103/ul Normal 0.0-0.7 [facility] Comment on above: Performed By: #### C BC ####[facility] Hepxwnrrin743[address] [place], [place] [address]DrElizabeth Malone Eosinophils/100 WBC (Bld) 0.0 % Critically low 0.9-7.0 [facility] Comment on above: Performed By: #### C BC ####[facility] Mupyyeyusd4705[address] [place], [place] [address]DrElizabeth Malone Erythrocyte distribution width (RBC) [Ratio] 14.5 % Normal 11.0-15.0 [facility] Comment on above: Performed By: #### C BC ####[facility] Knqwnttwls8410[address] [place], [place] [address]DrElizabeth Malone Hematocrit (Bld) [Volume fraction] 43.8 % Normal 42.0-54.0 [facility] Comment on above: Performed By: #### C BC ####[facility] Ddezpuutkl188183 [address] [place], [place] [address]Dr. Donna Malone Hemoglobin (Bld) [Mass/Vol] 14.2 g/dL Normal 14.0-18.0 [facility] Comment on above: Performed By: #### C BC ####[facility] Qtzrchgbsb29[address] [place] [address]DrElizabeth Malone IG # 0.01 10e3/ul Normal 0.00-0.03 [facility] Comment on above: Performed By: #### C BC ####[facility] Sgprglwabp045[address] [place], [place] [address]Dr. Donna Malone IG % 0.1 % Normal 0.0-0.5 [facility] Comment on above: Performed By: #### C BC ####[facility] Dmiuzoagmf1222[address] [place], [place] [address]DrElizabeth Malone LYMPH # 1.4 103/ul Normal 1.2-3.8 [facility] Comment on above: Performed By: #### C BC ####[facility] Ocwjrpauah5412[address] [place], [place] [address]DrElizabeth Malone Lymphocytes/100 WBC (Bld) 17.1 % Critically low 20.5-60.0 [facility] Comment on above: Performed By: #### C BC ####[facility] Rjhxpyxqfb0815[address] [place], [place] [address]DrElizabeth Malone MANUAL DIFF REQ NO Normal [facility] Comment on above: Performed By: #### C BC ####[facility] Ctygnbzzel504[address] [place], [place] [address]DrElizabeth Malone MCH (RBC) [Entitic mass] 29.1 pg Normal 25.9-34.0 [facility] Comment on above: Performed By: #### C BC ####[facility] Cddqyrmbvv2032[address] [place], [place] [address]DrElizabeth Malone MCHC (RBC) [Mass/Vol] 32.4 g/dL Normal 29.9-35.2 [facility] Comment on above: Performed By: #### C BC ####[facility] Xlpfuljqmx538[address] [place], [place] [address]DrElizabeth Malone MCV (RBC) [Entitic vol] 89.8 fL Normal 80.0-94.0 [facility] Comment on above: Performed By: #### C BC ####[facility] Edednzhtgh9[address] [place] [address] Donna Malone MONO # 0.3 103/ul Normal 0.3-0.8 [facility] Comment on above: Performed By: #### C BC ####[facility] Rdhttloklt117183 [address] [place], [place] [address]DrElizabeth Donna Faisal Monocytes/100 WBC (Bld) 4.1 % Normal 1.7-12.0 [facility] Comment on above: Performed By: #### C BC ####[facility] Ntwiwejkpb712[address] [place], [place] [address]DrElizabeth Donna Malone NEUT # 6.3 103/ul Normal 1.4-6.5 [facility] Comment on above: Performed By: #### C BC ####[facility] Ysrnnnslal8939[address] [place], [place] [address]DrElizabeth Donna Faisal Neutrophils/100 WBC (Bld) 78.3 % Critically high 43.0-75.0 [facility] Comment on above: Performed By: #### C BC ####[facility] Uuizbuccew9820[address] [place], [place] [address]DrElizabeth Donna Malone Platelet mean volume (Bld) [Entitic vol] 11.3 fL Normal 9.5-13.5 [facility] Comment on above: Performed By: #### C BC ####[facility] Fuuwkjcbky4265[address] [place], [place] [address]DrElizabeth Donna Faisal PLT 271 103/ul Normal 150-450 [facility] Comment on above: Performed By: #### C BC ####[facility] Drqtawuigj[address] [place], [place] [id number] Beltranyvan Faisal RBC 4.88 106/ul Normal 4.70-6.10 [facility] Comment on above: Performed By: #### C BC ####[facility] Dnbfpanivw9070[address] [place], [place] [address]DrElizabeth Malone WBC 8.0 103/ul Normal 4.0-11.0 [facility] Comment on above: Performed By: #### C BC ####[facility] Sehqfkxzcd85[address] [place], [place] [address]Dr. Rubyyvan Faisal ER URINE PROFILEon 3 Bilirubin Ql (U) Negative Normal NEGATIVE [facility] Comment on above: Performed By: #### E RUR ####[facility] Xrcqoibvjd5869[address] [place], [place] [address]Dr. Donna Malone Clarity (U) CLEAR Normal CLEAR [facility] Comment on above: Performed By: #### E RUR ####[facility] Knugtnazof2789[address] [place], [place] [address]Dr. Donna Malone Color (U) YELLOW Normal YELLOW [facility] Comment on above: Performed By: #### E RUR ####[facility] Ehzmzpxhne060[address] [place], [place] [address]Dr. Donna Malone ERUAHD A micrscopic examina tion will be performed if indicated. Normal [facility] Comment on above: Performed By: #### E RUR ####[facility] Bsdlfrwhyi856[address] [place], [place] [address]Dr. Donna Malone Glucose Ql (U) 100 mg/dl Abnormal NEGATIVE [facility] Comment on above: Performed By: #### E RUR ####[facility] Djzhfiskce9755[address] [place], [place] [address]Dr. Donna Malone Hemoglobin Ql (U) Negative Normal NEGATIVE [facility] Comment on above: Performed By: #### E RUR ####[facility] Vbwofbtnwu005[address] [place], [place] [address]Dr. Donna Malone Ketones Ql (U) TRACE Abnormal NEGATIVE [facility] Comment on above: Performed By: #### E RUR ####[facility] Mdvadxcyef9269[address] [place], [place] [address]Dr. Donna Malone LEUKOCYTES Negative Normal NEGATIVE [facility] Comment on above: Performed By: #### E RUR ####[facility] Blekovogtq768[address] [place], [place] [address]Dr. Donna Malone Nitrite Ql (U) Negative Normal NEGATIVE [facility] Comment on above: Performed By: #### E RUR ####[facility] K[address]vjeeenmv8[address] [place] [address]Dr. Donna Malone pH (U) 6.0 [pH] Normal 5-9 [facility] Comment on above: Performed By: #### E RUR ####[facility] Lguyougwcz7780[address] [place], [place] [address]Dr. Donna Malone SPEC GRAVITY >=1.030 Abnormal 1.005-<=1. 025 [facility] Comment on above: Performed By: #### E RUR ####[facility] Qyswowwnja800[address] [place], [place] [address]Dr. Donna Malone UA PROTEIN Negative Normal NEGATIVE/ TRACE [facility] Comment on above: Performed By: #### E RUR ####[facility] Fkrqhfbivg387[address] [place], [place] [address]Dr. Donna Malone UR MICRO IND NOT INDICATED Normal [facility] Comment on above: Performed By: #### E RUR ####[facility] Oyhxsnrnua996[address] [place], [place] [address]Dr. Donna Malone Urobilinogen Qn (U) 0.2 {Jermain'U}/dL Normal 0.2 - 1. 0 [facility] Comment on above: Performed By: #### E RUR ####[facility] Jawxwxbbmf4564[address] [place], [place] [address]DrElizabeth Malone PROF CHEM 8 (BAS METB)on Anion gap [Moles/Vol] 16.4 mmol/L Normal [facility] Comment on above: Performed By: #### B MP ####[facility] Psvnjovvak7588[address] [place], [place] [address]DrElizabeth Malone Calcium [Mass/Vol] 9.4 mg/dL Normal 8.5-10.1 [facility] Comment on above: Performed By: #### B MP ####[facility] Rmvoprvdcr6634[address] [place], [place] [address]DrElizabeth Malone Chloride [Moles/Vol] 103 mmol/L Normal 98-107 [facility] Comment on above: Performed By: #### B MP ####[facility] Azjrrnhbtb48[address] [place] [address]Dr. Donna Malone CO2 [Moles/Vol] 23.7 mmol/L Normal 21.0-32.0 [facility] Comment on above: Performed By: #### B MP ####[facility] Wwjpksberb65[address] [place] [address]Dr. Donna Malone Creatinine [Mass/Vol] 1.12 mg/dL Normal 0.70-1.30 [facility] Comment on above: Performed By: #### B MP ####[facility] Yfonqcxfrq3735[address] [place], [place] [address]Dr. Donna Faisal EGFR-AF CZECH >60 Normal >=60 [facility] Comment on above: Performed By: #### B MP ####[facility] Kezoljixxj4544[address] [place], [place] [address]Dr. Rubyyvan Faisal EGFR-NON AF CZECH >60 Normal >=60 [facility] Comment on above: Performed By: #### B MP ####[facility] Dgvcrvzkql6418[address] [place], [place] [address]Dr. Donna Faisal Glucose [Mass/Vol] 170 mg/dL Critically high 74-106 [facility] Comment on above: Performed By: #### B MP ####[facility] Psnjkhhlnv89668[address] [place], [place] [address]Dr. Rubyyvan Faisal Potassium [Moles/Vol] 4.1 mmol/L Normal 3.5-5.1 [facility] Comment on above: Performed By: #### B MP ####[facility] Nfypszzzoa5828[address] [place], [place] [address]Dr. Donna Malone Sodium [Moles/Vol] 139 mmol/L Normal 136-145 [facility] Comment on above: Performed By: #### B MP ####[facility] Dggymqrqak5[address] [place] [address]Dr. Rubyyvan Faisal Urea nitrogen [Mass/Vol] 9.0 mg/dL Normal 7.0-18.0 [facility] Comment on above: Performed By: #### B MP ####[facility] Wjptiicqum70[address] [place] [address]Dr. Donna Malone Urea nitrogen/Creatinine [Mass ratio] 8.0 mg/mg Normal [facility] Comment on above: Performed By: #### B MP ####[facility] Ipquvxqxph[address] [place], [place] [id number]. Donna Malone ACETONE SERUMon 08-10-2022 ACETONE Negative Normal NEGATIVE [facility] Comment on above: Performed By: #### A CETON ####[facility] Eelokcfgtm169[address] [place], [place] [address]Dr. Donna Malone CBC AUTO DIFFon 08-10-2022 BASO # 0.1 103/ul Normal 0.0-0.1 [facility] Comment on above: Performed By: #### C BC ####[facility] Lbigoifhdj85[address] [place], [place] [address]Dr. Donna Malone Basophils/100 WBC (Bld) 0.7 % Normal 0.2-2.0 [facility] Comment on above: Performed By: #### C BC ####[facility] Tpziihjokv[address] [place], [place] [address]Dr. Donna Malone EO # 0.2 103/ul Normal 0.0-0.7 [facility] Comment on above: Performed By: #### C BC ####[facility] Mybvnuesvc6701[address] [place], [place] [address]Dr. Donna Malone Eosinophils/100 WBC (Bld) 2.0 % Normal 0.9-7.0 [facility] Comment on above: Performed By: #### C BC ####[facility] Apktoyqvdi5416[address] [place], [place] [address]Dr. Donna Malone Erythrocyte distribution width (RBC) [Ratio] 14.3 % Normal 11.0-15.0 [facility] Comment on above: Performed By: #### C BC ####[facility] Ljiaxgcuic80[address] [place], [place] [address]Dr. Donna Malone Hematocrit (Bld) [Volume fraction] 37.3 % Critically low 42.0-54.0 [facility] Comment on above: Performed By: #### C BC ####[facility] Uqvzwdjiog6[address] [place] [id number]. Donna Malone Hemoglobin (Bld) [Mass/Vol] 12.1 g/dL Critically low 14.0-18.0 [facility] Comment on above: Performed By: #### C BC ####[facility] Lccuxjkeoq67[address] [place] [id number]. Donna Malone IG # 0.03 10e3/ul Normal 0.00-0.03 [facility] Comment on above: Performed By: #### C BC ####[facility] Ttsjhrwluk34[address] [place] [address]Dr. Donna Malone IG % 0.4 % Normal 0.0-0.5 [facility] Comment on above: Performed By: #### C BC ####[facility] Wuoqbmhgyq843883 [address] [place], [place] [address]Dr. Donna Malone LYMPH # 1.3 103/ul Normal 1.2-3.8 [facility] Comment on above: Performed By: #### C BC ####[facility] [address] [place] [address]Dr. Donna Malone Lymphocytes/100 WBC (Bld) 18.3 % Critically low 20.5-60.0 [facility] Comment on above: Performed By: #### C BC ####[facility] [address] [place], [place] [address]Dr. Donna Malone MANUAL DIFF REQ NO Normal [facility] Comment on above: Performed By: #### C BC ####[facility] [address] [place] [id number]. Donna Malone MCH (RBC) [Entitic mass] 30.1 pg Normal 25.9-34.0 [facility] Comment on above: Performed By: #### C BC ####[facility] [address] [place] [id number]. Donna Malone MCHC (RBC) [Mass/Vol] 32.4 g/dL Normal 29.9-35.2 [facility] Comment on above: Performed By: #### C BC ####[facility] [address] [place] [phone]. Donna Malone MCV (RBC) [Entitic vol] 92.8 fL Normal 80.0-94.0 [facility] Comment on above: Performed By: #### C BC ####[facility] [address] [place] [id number]. Donna Malone MONO # 0.6 103/ul Normal 0.3-0.8 [facility] Comment on above: Performed By: #### C BC ####[facility] [address] [place] [phone]. Donna Malone Monocytes/100 WBC (Bld) 7.6 % Normal 1.7-12.0 [facility] Comment on above: Performed By: #### C BC ####[facility] [address] [place], [place] [address]Dr. Donna Malone NEUT # 5.2 103/ul Normal 1.4-6.5 [facility] Comment on above: Performed By: #### C BC ####[facility] [address] [place], [place] [id number]. Donna Malone Neutrophils/100 WBC (Bld) 71.0 % Normal 43.0-75.0 [facility] Comment on above: Performed By: #### C BC ####[facility] [address] [place], [place] [id number]. Donna Malone Platelet mean volume (Bld) [Entitic vol] 11.6 fL Normal 9.5-13.5 [facility] Comment on above: Performed By: #### C BC ####[facility] [address] [place] [phone]. Donna Malone PLT 237 103/ul Normal 150-450 [facility] Comment on above: Performed By: #### C BC ####[facility] [address] [place] [phone]. Donna Faisal RBC 4.02 106/ul Critically low 4.70-6.10 [facility] Comment on above: Performed By: #### C BC ####[facility] [address] [place], [place] [address]Of. Donna Malone WBC 7.3 103/ul Normal 4.0-11.0 [facility] Comment on above: Performed By: #### C BC ####[facility] [address] [place], [place] [address]Lh. Donna Malone Covid-19 PCR (CVDTBH)on SARS-CoV-2 (COVID-19) RNA JOSÉ MIGUEL+probe Ql (Unsp spec) Not detected Normal NOT DETECTED [facility] Comment on above: Result Comment: [...] for this test is supported by the Photographic Developer And Printer of Health and Human Service's declaration that [...] be used). Performed By: #### C VDTBH ####[facility] [address] [place] [phone]. Donna Malone LACTATE/LACTIC ACIDon 2021 Lactate [Moles/Vol] 1.3 mmol/L Normal 0.4-1.9 [facility] Comment on above: Performed By: #### L ACT ####[facility] [address] [place] [phone]. Donna Malone PROF 14(COMP METB)on 022 Albumin [Mass/Vol] 2.9 g/dL Critically low 3.4-5.0 [facility] Comment on above: Performed By: #### C MP, HSTROPN ####[facility] [address] [place] [address]Dr. Donna Malone Albumin/Globulin [Mass ratio] 0.7 {ratio} Normal [facility] Comment on above: Performed By: #### C MARTI, HSTROPN ####[facility] [address] [place] [address]Dr. Donna Malone ALP [Catalytic activity/Vol] 45 U/L Critically low 46-116 [facility] Comment on above: Performed By: #### C MARTI, HSTROPN ####[facility] [address] [place] [address]Dr. Donna Malone ALT [Catalytic activity/Vol] 12 U/L Critically low 16-63 [facility] Comment on above: Performed By: #### C MARTI, HSTROPN ####[facility] J[address] [place], [place] [address]Dr. Donna Malone Anion gap [Moles/Vol] 10.9 mmol/L Normal [facility] Comment on above: Performed By: #### C MARTI, HSTROPN ####[facility] Omt[address] [place], [place] [address]Dr. Donna Malone AST [Catalytic activity/Vol] 10 U/L Critically low 15-37 [facility] Comment on above: Performed By: #### C MARTI, HSTROPN ####[facility] [address] [place], [place] [address]Dr. Donna Malone Bilirubin [Mass/Vol] 0.3 mg/dL Normal 0.2-1.0 [facility] Comment on above: Performed By: #### C MARTI, HSTROPN ####[facility] V[address]tv[address] [place], [place] [address]Dr. Donna Malone Calcium [Mass/Vol] 8.9 mg/dL Normal 8.5-10.1 [facility] Comment on above: Performed By: #### C MARTI, HSTROPN ####[facility] [address] [place], [place] [address]Dr. Donna Malone Chloride [Moles/Vol] 106 mmol/L Normal 98-107 [facility] Comment on above: Performed By: #### C MARTI, HSTROPN ####[facility] [address] [place] [address]Dr. Donna Malone CO2 [Moles/Vol] 29.4 mmol/L Normal 21.0-32.0 [facility] Comment on above: Performed By: #### C MARTI, HSTROPN ####[facility] Qbz[address]rbk[address] [place], [place] [address]Dr. Rubyyvan Malone Creatinine [Mass/Vol] 1.15 mg/dL Normal 0.70-1.30 [facility] Comment on above: Performed By: #### C MARTI, HSTROPN ####[facility] [address] [place], [place] [address]Dr. Rubyyvan Faisal EGFR-AF CZECH >60 Normal >=60 [facility] Comment on above: Performed By: #### C MARTI, HSTROPN ####[facility] E[address] [place], [place] [address]Dr. Donna Faisal EGFR-NON AF CZECH >60 Normal >=60 [facility] Comment on above: Performed By: #### C MARTI, HSTROPN ####[facility] [address] [place], [place] [address]Dr. Rubyyvan Malone Globulin (S) [Mass/Vol] 4.2 g/dL Normal [facility] Comment on above: Performed By: #### C MARTI, HSTROPN ####[facility] [address] [place], [place] [address]Dr. Donna Malone Glucose [Mass/Vol] 116 mg/dL Critically high 74-106 [facility] Comment on above: Performed By: #### C MARTI, HSTROPN ####[facility] [address] [place], [place] [address]Dr. Donna Malone Potassium [Moles/Vol] 4.3 mmol/L Normal 3.5-5.1 [facility] Comment on above: Performed By: #### C MARIT, HSTROPN ####[facility] [address] [place] [phone]. Donna Malone Protein [Mass/Vol] 7.1 g/dL Normal 6.4-8.2 [facility] Comment on above: Performed By: #### C MARTI, HSTROPN ####[facility] [address] [place] [phone]. Donna Malone Sodium [Moles/Vol] 142 mmol/L Normal 136-145 [facility] Comment on above: Performed By: #### C MP, HSTROPN ####[facility] [address] [place] [phone]. Donna Malone Urea nitrogen [Mass/Vol] 9.0 mg/dL Normal 7.0-18.0 [facility] Comment on above: Performed By: #### C MARTI, HSTROPN ####[facility] [address] [place] [address]Dr. Rubyyvan Malone Urea nitrogen/Creatinine [Mass ratio] 7.8 mg/mg Normal [facility] Comment on above: Performed By: #### C MARTI, HSTROPN ####[facility] [address] [place] [phone]. Donna Malone TROPONIN, HIGH SENSITIVITYon 08-10-2022 HSTROP 9.1 pg/mL Normal 4.0-76.1 [facility] Comment on above: Result Comment: CUT- OFF POINTS HAVE BEEN ESTABLISHED BASED ON THE FOURTH UNIVERSAL DEFINITIONS OF MYOCARDIALINFARCTION. THE UPPER REFERENCE LIMIT (URL) OF TROPONIN, DEFINED THE 99TH PERCENTILE OFcTnI DISTRIBUTION IN A REFERENCE POPULATION, HAS BEEN CONFIRMED THE DECISION THRESHOLDFOR [place] DIAGNOSIS. Performed By: #### C MP, HSTROPN ####[facility] [address] [place] [phone]. Donna Malone XR KNEE RT 4V or >on 022 XR KNEE RT 4V or > Normal [facility] CT HEAD WO CONon 08-05-2022 CT HEAD WO CON Normal [facility] CT CSPINE WO CONon 2 CT CSPINE WO CON Normal [facility] CT FACIAL BONES WO CONon CT FACIAL BONES WO CON Normal Th e [facility] CT LSPINE WO CONon 2 CT LSPINE WO CON Normal [facility] Glucose Glucometer (BldC) [M ass/Vol]Ordered By: Sang Bauer on 07-20-2022 Glucose [Mass/Vol] 139 mg/dL [facility] Comment on above: Random Glucose Refer ence Range is dependent on time and content of last meal. Glucose of more than 200 mg/dL in a nonstressed, ambulatory subject supports the diagnosis of Diabetes Mellitus. No Panel InformationOrdered By: Sang Bauer on 07-20-2022 Bedside Glucose Comment Glu2: cleaned meter [facility] Cholesterol [Mass/volume] in Serum or PlasmaOrdered By: Sang Bauer on 07-18-2022 Cholesterol [Mass/Vol] 136 mg/dL 140-200 [facility] Comment on above: Chol less than 200 m g/dl low riskChol 201-239 mg/dl borderline riskChol 240 mg/dl and greater high risk Cholesterol in LDL Calc [Mas s/Vol]Ordered By: Sang Bauer on 07-18-2022 Cholesterol in LDL [Mass/Vol] 81 mg/dL 0-100 [facility] Comment on above: LDL ATP III CLASSIFI CATIONLDL less than 100 mg/dL OptimalLDL 100-129 mg/dL Near or above optimalLDL 130-159 mg/dL Borderline highLDL 160-189 mg/dL HighLDL greater than 189 mg/dL Very high Cholesterol in VLDL Calc [Ma ss/Vol]Ordered By: Sang Bauer on 07-18-2022 Cholesterol in VLDL [Mass/Vol] 17 mg/dL [facility] Serum or plasma high density lipoprotein (HDL) cholesterol measurementOrdered By: Sang Bauer on 07-18-2022 Cholesterol in HDL [Mass/Vol] 38 mg/dL 29-71 [facility] Comment on above: HDL CHOL ATP-III CLA SSIFICATION Cardiovascular RiskHDL > or equal to 60 mg/dL LOWHDL < 40 mg/dL HIGH Serum or plasma total choles terol/high density lipoprotein (HDL) cholesterol mass ratOrdered By: Sang Bauer on 07-18-2022 Cholesterol.total/Chol esterol in HDL [Mass ratio] 3.6 {ratio} <5.0 [facility] Triglyceride [Mass/volume] i n Serum or PlasmaOrdered By: Sang Bauer on 07-18-2022 Triglyceride [Mass/Vol] 85 mg/dL 35-149 [facility] Comment on above: TRIG ATP III [...] aPTT Coag (PPP) [Time] 35.8 s 25.1-36.5 [facility] Albumin [Mass/volume] in Ser um or PlasmaOrdered By: Gayathri Leal on 07-17-2022 Albumin [Mass/Vol] 3.1 g/dL 3.2-5.5 [facility] Amphetamine Screen Ql (U)Ord ered By: Gayathri Leal on 07-17-2022 Amphetamines Ql (U) Negative Negative [facility] Automated erythrocytes count in urine sediment (number/area)Ordered By: Gayathri Leal on 07-17-2022 RBC Auto (Urine sed) [#/Area] 3-4 [HPF] 0-4 [facility] Automated leukocytes count i n urine sediment (number/area)Ordered By: Gayathri Leal on 07-17-2022 WBC Auto (Urine sed) [#/Area] 1-2 [HPF] 0-4 [facility] Barbiturates [Presence] in U rineOrdered By: Gayathri Leal on 07-17-2022 Barbiturates Ql (U) Negative Negative [facility] Basophils Auto (Bld) [#/Vol] Ordered By: Gayathri Leal on 07-17-2022 Basophils (Bld) [#/Vol] 0.1 10*3/uL 0.0-0.2 [facility] Basophils/100 WBC Auto (Bld) Ordered By: Gayathri Leal on 07-17-2022 Basophils/100 WBC (Bld) 1.0 % . [facility] Benzodiazepines [Presence] i n UrineOrdered By: Gayathri Leal on 07-17-2022 Benzodiazepines Ql (U) Positive Negative [facility] Bilirubin Test strip Ql (U)O rdered By: Gayathri Leal on 07-17-2022 Bilirubin Ql (U) Negative Negative [facility] COVID CepheidOrdered By: Olya Leal on 07-17-2022 SARS-CoV-2 (COVID-19) Ab IA Ql Negative Negative [facility] Comment on above: This is a duplicate [employer] X[employer] X[employer] CoV-2/Flu/RSV Plus RNA by RT-PCR result to be used for statistical tracking purpose only. SARS-CoV-2 (COVID-19) RNA JOSÉ MIGUEL+probe Ql (Unsp spec) [facility] Cannabinoids [Presence] in U rine by Screen methodOrdered By: Gayathri Leal on 07-17-2022 Cannabinoids Screen Ql (U) Negative Negative [facility] Comment on above: These are unconfirme d results and should not be used for legal purposes. Drug Cut-Off Concentration: AMPH 1000 ng/mL EWA 200 ng/mL JOHN 200 ng/mL COCM 300 ng/mL OP 300 ng/mL PCP 25 ng/mL THC 20 ng/mL Color Auto (U)Ordered By: Dung Leal on 07-17-2022 Color (U) Yellow Yellow [facility] Creatine kinase [Enzymatic a ctivity/volume] in Serum or PlasmaOrdered By: Gayathri Leal on 07-17-2022 CK [Catalytic activity/Vol] 137 U/L 22-269 [facility] Creatinine and Glomerular fi ltration rate.predicted panel (S/P/Bld)Ordered By: Gayathri Leal on 07-17-2022 Creatinine [Mass/Vol] 1.06 mg/dL 0.64-1.27 [facility] Direct bilirubin measurement Ordered By: Gayathri Leal on 07-17-2022 Bilirubin.direct [Mass/Vol] mg/dL 0.0-0.4 [facility] Eosinophils Auto (Bld) [#/Vo l]Ordered By: Gayathri Leal on 07-17-2022 Eosinophils (Bld) [#/Vol] 0.1 10*3/uL 0.0-0.45 [facility] Eosinophils/100 WBC Auto (Bl d)Ordered By: Gayathri Leal on 07-17-2022 Eosinophils/100 WBC (Bld) 0.7 % . [facility] Erythrocyte distribution wid th Auto (RBC) [Ratio]Ordered By: Gayathri Leal on 07-17-2022 Erythrocyte distribution width (RBC) [Ratio] 15.8 % 12.0-14.8 [facility] Estimated glomerular filtrat ion rate (GFR) non- AmericanOrdered By: Gayathri Leal on 07-17-2022 GFR/1.73 sq M.predicted among non-blacks MDRD (S/P/Bld) [Vol rate/Area] > 60 mL/Min [facility] Globulin Calc (S) [Mass/Vol] Ordered By: Gayathri Leal on 07-17-2022 Globulin (S) [Mass/Vol] 3.0 g/dL [facility] Glucose mean value [Mass/vol ume] in Blood Estimated from glycated hemoglobinOrdered By: Sang Bauer on 07-17-2022 Average glucose Estimated from glycated hemoglobin (Bld) [Mass/Vol] 114 mg/dL [facility] Hematocrit Auto (Bld) [Volum e fraction]Ordered By: Gayathri Leal on 07-17-2022 Hematocrit (Bld) [Volume fraction] 37.3 % 38.8-50.0 [facility] Hemoglobin A1c percentageOrd ered By: Sang Bauer on 07-17-2022 HbA1c (Bld) [Mass fraction] 5.6 % 4.3-5.6 [facility] Comment on above: Increased risk for d iabetes: 5.7 - 6.4diabetes: >6.4glycemic control for adults with diabetes: <7.0 Hemoglobin [Mass/volume] in BloodOrdered By: Gayathri Leal on 07-17-2022 Hemoglobin (Bld) [Mass/Vol] 12.3 g/dL 13.0-17.0 [facility] Ketones Auto test strip (U) [Mass/Vol]Ordered By: Gayathri Leal on 07-17-2022 Ketones (U) [Mass/Vol] 2+ Negative Fi [facility] - Chemistry and C hemistry - challengeOrdered By: Gayathri Leal on 07-17-2022 Natriuretic peptide B (Bld) [Mass/Vol] 116.0 pg/mL 5-100 [facility] - CoagulationOrde red By: Gayathri Leal on 07-17-2022 PT Coag (PPP) [Time] 12.5 s 9.0-12.9 [facility] - Drug toxicology Ordered By: Gayathri Leal on 07-17-2022 Opiates Ql (U) Negative Negative [facility] - Hematology and Cell countsOrdered By: Gayathri Leal on 07-17-2022 Nucleated RBC/100 WBC (Bld) [Ratio] 0.1 % 0-0.5 [facility] - UrinalysisOrder ed By: Gayathri Leal on 07-17-2022 Hyaline casts LM Ql (Urine sed) None seen [LPF] 0-8 [facility] Leukocytes [#/volume] in Blo od by Automated countOrdered By: Gayathri Leal on 07-17-2022 WBC (Bld) [#/Vol] 7.8 10*3/uL 4.5-11.0 [facility] Lymphocytes Auto (Bld) [#/Vo l]Ordered By: Gayathri Leal on 07-17-2022 Lymphocytes (Bld) [#/Vol] 2.3 10*3/uL 1.00-4.8 [facility] Lymphocytes/100 WBC Auto (Bl d)Ordered By: Gayathri Leal on 07-17-2022 Lymphocytes/100 WBC (Bld) 29.5 % . [facility] MCH Auto (RBC) [Entitic mass ]Ordered By: Gayathri Leal on 07-17-2022 MCH (RBC) [Entitic mass] 30.2 pg 27.5-35.2 [facility] MCHC Auto (RBC) [Mass/Vol]Or dered By: Gayathri Leal on 07-17-2022 MCHC (RBC) [Mass/Vol] 33.1 g/dL 32.5-35.6 [facility] MCV Auto (RBC) [Entitic vol] Ordered By: Gayathri Leal on 07-17-2022 MCV (RBC) [Entitic vol] 91.5 fL 83.5-101 [facility] Monocyte %Ordered By: Zeinab Leal on 07-17-2022 Monocyte % 20 umol/L [facility] Monocytes Auto (Bld) [#/Vol] Ordered By: Gayathri Leal on 07-17-2022 Monocytes (Bld) [#/Vol] 0.4 10*3/uL 0.0-0.8 [facility] Monocytes/100 WBC Auto (Bld) Ordered By: Gayathri Leal on 07-17-2022 Monocytes/100 WBC (Bld) 5.4 % . [facility] Neutrophils Auto (Bld) [#/Vo l]Ordered By: Gayathri Leal on 07-17-2022 Neutrophils (Bld) [#/Vol] 4.9 10*3/uL 1.8-7.7 [facility] Neutrophils/100 WBC Auto (Bl d)Ordered By: Gayathri Leal on 07-17-2022 Neutrophils/100 WBC (Bld) 63.4 % . [facility] Nitrite Test strip Ql (U)Ord ered By: Gayathri Leal on 07-17-2022 Nitrite Ql (U) Negative Negative [facility] No Panel InformationOrdered By: Gayathri Leal on 07-17-2022 Estimated GFR () > 60 mL/Min [facility] Comment on above: GFR estimated refere nce range: According to KDOQI guidelines, <60 ml/min/1.73m2 is sufficient to diagnose a patient with chronic kidney disease. Pharmacy Creatinine Clearance (Chem N/A [facility] Phencyclidine Screen Ql (U)O rdered By: Gayathri Leal on 07-17-2022 Phencyclidine Ql (U) Negative Negative [facility] Platelet mean volume Auto (B ld) [Entitic vol]Ordered By: Gayathri Leal on 07-17-2022 Platelet mean volume (Bld) [Entitic vol] 10.2 fL 6.6-10.1 [facility] Platelet poor plasma interna tional normalized ratio (INR) by coagulation assay (relatOrdered By: Gayathri Leal on 07-17-2022 INR Coag (PPP) [Relative time] 1.1 {INR} [facility] Comment on above: INR Therapeutic Rang [...] 07-17-2022 Platelets (Bld) [#/Vol] 239 10*3/uL 150-450 [facility] Protein Auto test strip (U) [Mass/Vol]Ordered By: Gayathri Leal on 07-17-2022 Protein (U) [Mass/Vol] Negative Negative [facility] Protein [Mass/volume] in Ser um or PlasmaOrdered By: Gayathri Leal on 07-17-2022 Protein [Mass/Vol] 6.1 g/dL 6.1-7.9 [facility] RBC Auto (Bld) [#/Vol]Ordere d By: Gayathri Leal on 07-17-2022 RBC (Bld) [#/Vol] 4.07 10*6/uL 3.90-5.60 [facility] Serum or plasma alanine del valle otransferase measurement without P-5'-P (enzymatic activiOrdered By: Gayathri Leal on 07-17-2022 ALT No additional P-5'-P [Catalytic activity/Vol] 13 U/L 10-60 [facility] Serum or plasma albumin/glob ulin mass ratioOrdered By: Gayathri Leal on 07-17-2022 Albumin/Globulin [Mass ratio] 1.0 {ratio} [facility] Serum or plasma alkaline gail sphatase measurement (enzymatic activity/volume)Ordered By: Gayathri Leal on 07-17-2022 ALP [Catalytic activity/Vol] 37 U/L 32-92 [facility] Serum or plasma anion gap de terminationOrdered By: Gayathri Leal on 07-17-2022 Anion gap [Moles/Vol] 12.1 mmol/L 6.0-15.0 [facility] Serum or plasma aspartate am inotransferase measurement (enzymatic activity/volume)Ordered By: Gayathri Leal on 07-17-2022 AST [Catalytic activity/Vol] 15 U/L 10-42 [facility] Serum or plasma calcium deepti urement (mass/volume)Ordered By: Gayathri Leal on 07-17-2022 Calcium [Mass/Vol] 8.8 mg/dL 8.2-10.2 [facility] Serum or plasma chloride deepak surement (moles/volume)Ordered By: Gayathri Leal on 07-17-2022 Chloride [Moles/Vol] 108 mmol/L 95-114 [facility] Serum or plasma creatine kin ase MB (CKMB)/total creatine kinase (CK) ratio by calculaOrdered By: Gayathri Leal on 07-17-2022 CK.MB Calc [Catalytic fraction] 2.6 % 0.00-2.50 [facility] Serum or plasma creatine kin ase MB measurement (mass/volume)Ordered By: Gayathri Leal on 07-17-2022 CK.MB [Mass/Vol] 3.6 ng/mL 0.6-6.3 [facility] Serum or plasma glucose deepti urement (mass/volume)Ordered By: Gayathri Leal on 07-17-2022 Glucose [Mass/Vol] 91 mg/dL 70-100 [facility] Comment on above: ADA recommended refe rence rangeRandom Glucose Reference Range is dependent on time and content of last meal. Glucose of more than 200 mg/dL in a nonstressed, ambulatory subject supports the diagnosis of Diabetes Mellitus. Serum or plasma non-glucuron idated bilirubin measurement (mass/volume)Ordered By: Gayathri Leal on 07-17-2022 Bilirubin.indirect [Mass/Vol] TNP [facility] Comment on above: Test not performed Serum or plasma potassium me asurement (moles/volume)Ordered By: Gayathri Leal on 07-17-2022 Potassium [Moles/Vol] 4.0 mmol/L 3.5-5.1 [facility] Serum or plasma sodium measu rement (moles/volume)Ordered By: Gayathri Leal on 07-17-2022 Sodium [Moles/Vol] 139 mmol/L 136-146 [facility] Serum or plasma total biliru bin measurement (mass/volume)Ordered By: Gayathri Leal on 07-17-2022 Bilirubin [Mass/Vol] 0.8 mg/dL 0.3-1.2 [facility] Serum or plasma total carbon dioxide measurement (moles/volume)Ordered By: Gayathri Leal on 07-17-2022 CO2 [Moles/Vol] 22.9 mmol/L 22.0-30.0 [facility] Serum or plasma urea nitroge n measurement (mass/volume)Ordered By: Gayathri Leal on 07-17-2022 Urea nitrogen [Mass/Vol] 12 mg/dL 9-23 [facility] Specific gravity Auto test s trip (U) [Rel density]Ordered By: Gayathri Leal on 07-17-2022 Specific gravity (U) [Rel density] 1.024 1.001-1.03 0 [facility] Squamous epithelial cells de tection in urine sediment by light microscopyOrdered By: Gayathri Leal on 07-17-2022 Epithelial cells.squamous LM Ql (Urine sed) None seen [HPF] 0-2 [facility] Troponin I.cardiac [Mass/vol ume] in Serum or Plasma by High sensitivity methodOrdered By: Sang Bauer on 07-17-2022 Troponin I.cardiac High sensitivity method [Mass/Vol] 7 pg/mL 0-20 [facility] Urine bacteria detection by automated methodOrdered By: Gayathri Leal on 07-17-2022 Bacteria Auto Ql (U) None seen None Seen [facility] Urine clarity by refractomet ry automatedOrdered By: Gayathri Leal on 07-17-2022 Clarity Refractometry automated (U) Clear Clear [facility] Urine cocaine detectionOrder ed By: Gayathri Leal on 07-17-2022 Cocaine Ql (U) Negative Negative [facility] Urine glucose measurement by automated test strip (mass/volume)Ordered By: Gayathri Leal on 07-17-2022 Glucose Auto test strip (U) [Mass/Vol] Normal mg/dL Normal [facility] Urine hemoglobin detection b y automated test stripOrdered By: Gayathri Leal on 07-17-2022 Hemoglobin Auto test strip Ql (U) Negative Negative [facility] Urine leukocyte esterase det ection by automated test stripOrdered By: Gayathri Leal on 07-17-2022 Leukocyte esterase Auto test strip Ql (U) 1+ Negative [facility] Urobilinogen Auto test strip (U) [Mass/Vol]Ordered By: Gayathri eLal on 07-17-2022 Urobilinogen (U) [Mass/Vol] Normal mg/dL Normal [facility] pH Auto test strip (U)Ordere d By: Gayathri Leal on 07-17-2022 pH (U) 6.5 [pH] 5.0-9.0 [facility] AMMONIAon 07-16-2022 Ammonia (P) [Moles/Vol] 44 umol/L Critically high [facility] Comment on above: Performed By: #### A MM ####[facility] [address]yqlv[address] [place] [address]Dr. Donna Malone BNPon 07-16-2022 Natriuretic peptide B (Bld) [Mass/Vol] 236.0 pg/mL Normal <=900.0 [facility] Comment on above: Performed By: #### C MP, BNP ####[facility] I[address]sloliw[address] [place] [address]Dr. Donna Malone CBC AUTO DIFFon 07-16-2022 BASO # 0.1 103/ul Normal 0.0-0.1 [facility] Comment on above: Performed By: #### C BC ####[facility] Uferripdzn[address] [place] [address]DrElizabeth Malone Basophils/100 WBC (Bld) 1.0 % Normal 0.2-2.0 [facility] Comment on above: Performed By: #### C BC ####[facility] Olhvvgvqld6157 [place] [address]Dr. Donna Malone EO # 0.2 103/ul Normal 0.0-0.7 [facility] Comment on above: Performed By: #### C BC ####[facility] Rxwckkehuy4705 [place] [address]Dr. Donna Malone Eosinophils/100 WBC (Bld) 3.3 % Normal 0.9-7.0 [facility] Comment on above: Performed By: #### C BC ####[facility] Agcndyurqo[address] [place], [place] [address]Dr. Donna Malone Erythrocyte distribution width (RBC) [Ratio] 15.1 % Critically high 11.0-15.0 [facility] Comment on above: Performed By: #### C BC ####[facility] Cvciilfoqq[address] [place], [place] [address]Dr. Rubyyvan Malone Hematocrit (Bld) [Volume fraction] 36.1 % Critically low 42.0-54.0 [facility] Comment on above: Performed By: #### C BC ####[facility] Dqydkxnxbd[address] [place], [place] [address]Dr. Donna Malone Hemoglobin (Bld) [Mass/Vol] 12.0 g/dL Critically low 14.0-18.0 [facility] Comment on above: Performed By: #### C BC ####[facility] Xnskamvbur[address] [place], [place] [address]Dr. Donna Malone IG # 0.01 10e3/ul Normal 0.00-0.03 [facility] Comment on above: Performed By: #### C BC ####[facility] Diigzldiec[address] [place], [place] [address]Dr. Rubyyvan Malone IG % 0.2 % Normal 0.0-0.5 [facility] Comment on above: Performed By: #### C BC ####[facility] Swhmkunuwx0[address] [place], [place] [address]DrElizabeth Malone LYMPH # 2.5 103/ul Normal 1.2-3.8 [facility] Comment on above: Performed By: #### C BC ####[facility] Ukieaixurr[address] [place] [address]Dr. Donna Malone Lymphocytes/100 WBC (Bld) 41.1 % Normal 20.5-60.0 [facility] Comment on above: Performed By: #### C BC ####[facility] Qfdobcigqy8328 [place] [address]Dr. Donna Malone MANUAL DIFF REQ NO Normal [facility] Comment on above: Performed By: #### C BC ####[facility] Zjtvhzuxcq45[address] [place] [id number]. Donna Malone MCH (RBC) [Entitic mass] 30.6 pg Normal 25.9-34.0 [facility] Comment on above: Performed By: #### C BC ####[facility] Dvmrteutpw1499[address] [place], [place] [address]Dr. Donna Malone MCHC (RBC) [Mass/Vol] 33.2 g/dL Normal 29.9-35.2 [facility] Comment on above: Performed By: #### C BC ####[facility] Iitqxqjyhu14[address] [place], [place] [address]DrElizabeth Malone MCV (RBC) [Entitic vol] 92.1 fL Normal 80.0-94.0 [facility] Comment on above: Performed By: #### C BC ####[facility] Uhlzwtfhxr430[address] [place], [place] [address]Dr. Donna Malone MONO # 0.5 103/ul Normal 0.3-0.8 [facility] Comment on above: Performed By: #### C BC ####[facility] Ucohmixcqm7[address] [place], [place] [id number]. Donna Malone Monocytes/100 WBC (Bld) 7.4 % Normal 1.7-12.0 [facility] Comment on above: Performed By: #### C BC ####[facility] Fsxmvdlrnk[address] [place], [place] [id number] Malone NEUT # 2.9 103/ul Normal 1.4-6.5 [facility] Comment on above: Performed By: #### C BC ####[facility] Ggkgbmxrgm13[address] [place] [address]Dr. Donna Malone Neutrophils/100 WBC (Bld) 47.0 % Normal 43.0-75.0 [facility] Comment on above: Performed By: #### C BC ####[facility] Obqeedtida87[address] [place] [id number]. Donna Malone Platelet mean volume (Bld) [Entitic vol] 11.4 fL Normal 9.5-13.5 [facility] Comment on above: Performed By: #### C BC ####[facility] Gofhqtqnqm24[address] [place] [address]Dr. Donna Malone PLT 206 103/ul Normal 150-450 [facility] Comment on above: Performed By: #### C BC ####[facility] Snlqpqyvog3148 [place] [address]Dr. Donna Malone RBC 3.92 106/ul Critically low 4.70-6.10 [facility] Comment on above: Performed By: #### C BC ####[facility] Ikzgmccuzv7357 [place] [address]Dr. Donna Malone WBC 6.1 103/ul Normal 4.0-11.0 [facility] Comment on above: Performed By: #### C BC ####[facility] Yfxdlduysq5071 [place] [address]Dr. Donna Malone ECHO LIMITED STUDYon 022 ECHO LIMITED STUDY Normal [facility] MRI BRAIN WO CONon 2 MRI BRAIN WO CON Normal [facility] PROF 14(COMP METB)on 022 Albumin [Mass/Vol] 2.8 g/dL Critically low 3.4-5.0 [facility] Comment on above: Performed By: #### C MP, BNP ####[facility] Vfynsqphuv[address] [place] [address]Dr. Donna Malone Albumin/Globulin [Mass ratio] 0.9 {ratio} Normal [facility] Comment on above: Performed By: #### C MP, BNP ####[facility] Crcvtfsbox058[address] [place], [place] [address]Dr. Donna Malone ALP [Catalytic activity/Vol] 36 U/L Critically low 46-116 [facility] Comment on above: Performed By: #### C MP, BNP ####[facility] Ysxdwsgyyo2965[address] [place], [place] [address]Dr. Donna Malone ALT [Catalytic activity/Vol] 13 U/L Critically low 16-63 [facility] Comment on above: Performed By: #### C MP, BNP ####[facility] Lquccvbkmm788[address] [place], [place] [address]Dr. Donna Malone Anion gap [Moles/Vol] 10.4 mmol/L Normal [facility] Comment on above: Performed By: #### C MP, BNP ####[facility] Mqogolwabv13[address] [place], [place] [address]Dr. Donna Malone AST [Catalytic activity/Vol] 13 U/L Critically low 15-37 [facility] Comment on above: Performed By: #### C MP, BNP ####[facility] Viexxkqzxm9800[address] [place], [place] [address]Dr. Rubyyvan Malone Bilirubin [Mass/Vol] 0.3 mg/dL Normal 0.2-1.0 [facility] Comment on above: Performed By: #### C MP, BNP ####[facility] Zfxcoxmpzs8[address] [place], [place] [address]Dr. Donna Malone Calcium [Mass/Vol] 8.2 mg/dL Critically low 8.5-10.1 [facility] Comment on above: Performed By: #### C MP, BNP ####[facility] Skciluvhuu0864[address] [place], [place] [address]Dr. Donna Malone Chloride [Moles/Vol] 108 mmol/L Critically high 98-107 [facility] Comment on above: Performed By: #### C MP, BNP ####[facility] Ekjorpyqnf4536[address] [place], [place] [address]Dr. Donna Malone CO2 [Moles/Vol] 25.5 mmol/L Normal 21.0-32.0 [facility] Comment on above: Performed By: #### C MP, BNP ####[facility] Zpixbcuvka4788 [place] [address]Dr. Donna Malone Creatinine [Mass/Vol] 0.92 mg/dL Normal 0.70-1.30 [facility] Comment on above: Performed By: #### C MP, BNP ####[facility] Phrjwokiju6[address] [place] [address]Dr. Donna Malone EGFR-AF CZECH >60 Normal >=60 [facility] Comment on above: Performed By: #### C MP, BNP ####[facility] Hteihzdgzn92[address] [place] [address]Dr. Donna Faisal EGFR-NON AF CZECH >60 Normal >=60 [facility] Comment on above: Performed By: #### C MP, BNP ####[facility] Lninknktlm98[address] [place], [place] [address]Dr. Donna Faisal Globulin (S) [Mass/Vol] 3.2 g/dL Normal [facility] Comment on above: Performed By: #### C MP, BNP ####[facility] Pxvyrqemdi5981 [place] [address]Dr. Donna Faisal Glucose [Mass/Vol] 76 mg/dL Normal 74-106 [facility] Comment on above: Performed By: #### C MP, BNP ####[facility] Gficinepkd2392 [place] [address]Dr. Donna Malone Potassium [Moles/Vol] 3.9 mmol/L Normal 3.5-5.1 [facility] Comment on above: Performed By: #### C MP, BNP ####[facility] Oshybybtpo13[address] [place] [address]Dr. Donna Malone Protein [Mass/Vol] 6.0 g/dL Critically low 6.4-8.2 [facility] Comment on above: Performed By: #### C MP, BNP ####[facility] Npmdcotjvr9168 [place] [address]Dr. Donna Malone Sodium [Moles/Vol] 140 mmol/L Normal 136-145 [facility] Comment on above: Performed By: #### C MP, BNP ####[facility] Cderrvyxec2494 [place] [address]Dr. Donna Malone Urea nitrogen [Mass/Vol] 12.0 mg/dL Normal 7.0-18.0 [facility] Comment on above: Performed By: #### C MP, BNP ####[facility] Luvsyqjqbe0128[address] [place], [place] [address]Dr. Donna Malone Urea nitrogen/Creatinine [Mass ratio] 13.0 mg/mg Normal [facility] Comment on above: Performed By: #### C MP, BNP ####[facility] Jpzlfuhvdt9[address] [place], [place] [address]Dr. Donna Malone VIT B12 AND FOLATEon 022 Cobalamin (Vitamin B12) [Mass/Vol] 532.0 pg/mL Normal 193.0-986. 0 [facility] Comment on above: Performed By: #### B 12FOL ####[facility] Hqscumkpfz09[address] [place], [place] [address]Dr. Donna Malone FOLATE 13.60 ng/mL Normal 8.60-58.90 [facility] Comment on above: Performed By: #### B 12FOL ####[facility] Kgweopuxcg[address] [place], [place] [address]Dr. Donna Malone AMMONIAon 07-15-2022 Ammonia (P) [Moles/Vol] 23 umol/L Normal 11-32 [facility] Comment on above: Performed By: #### A MM ####[facility] Syfskuugzf4[address] [place], [place] [address]Dr. Donna Malone BLOOD GASES BTYon 07-15-2022 02 MODE ROOM AIR Normal [facility] Comment on above: Performed By: #### A BG ####[facility] Bzrnvkpyaz9[address] [place], [place] [address]Dr. Donna Malone ALLENS TEST Positive Normal [facility] Comment on above: Performed By: #### A BG ####[facility] Gpbdwofrnz815[address] [place], [place] [address]Dr. Donna Malone Base excess Calc (Bld) [Moles/Vol] -1.3000 mmol/L Normal -2.0-2.0 [facility] Comment on above: Performed By: #### A BG ####[facility] Nslaodifqf67[address] [place] [address]Dr. Donna Malone BIPAP PRESSURE Normal [facility] Comment on above: Performed By: #### A BG ####[facility] Uvxawhdgsr1753 [place] [address]Dr. Donna Malone CPAP [facility] Comment on above: Performed By: #### A BG ####[facility] Zznmwakkid15[address] [place], [place] [address]Dr. Donna Malone FIO2 [facility] Comment on above: Performed By: #### A BG ####[facility] Pwdwcyceev3[address] [place], [place] [address]Dr. Donna Malone HCO3 (Bld) [Moles/Vol] 22.7 mmol/L Normal 22.0-26.0 [facility] Comment on above: Performed By: #### A BG ####[facility] Rdqckfoecu787[address] [place], [place] [address]Dr. Donna Malone LPM [facility] Comment on above: Performed By: #### A BG ####[facility] Vqtcdvplqq8[address] [place], [place] [address]Dr. Donna Malone MINUTE VOLUME [facility] Comment on above: Performed By: #### A BG ####[facility] Ishqjyvgyz385[address] [place], [place] [address]Dr. Donna Malone Oxygen (Bld) [Partial pressure] 77.7 mm[Hg] Critically low 80.0-100.0 [facility] Comment on above: Performed By: #### A BG ####[facility] Rucfugntun[address] [place], [place] [address]Dr. Donna Malone Oxygen saturation in Blood 95.9 % Normal 95.0-100.0 [facility] Comment on above: Performed By: #### A BG ####[facility] Vdcqguzfba33[address] [place], [place] [address]Dr. Donna Malone PCO2 33.0 mmHg Critically low 35.0-45.0 [facility] Comment on above: Performed By: #### A BG ####[facility] Hlzyguwysz8043 [place] [address]Dr. Donna Malone PEEP [facility] Comment on above: Performed By: #### A BG ####[facility] Jzduiabean136[address] [place], [place] [address]Dr. Donna Malone pH (Bld) 7.446 [pH] Normal 7.350-7.45 0 [facility] Comment on above: Performed By: #### A BG ####[facility] Rfxxeexhfi196[address] [place], [place] [address]Dr. Donna Malone PIP [facility] Comment on above: Performed By: #### A BG ####[facility] Zoszkrjeiz[address] [place], [place] [address]Dr. Donna Malone PS [facility] Comment on above: Performed By: #### A BG ####[facility] Pxmvukgxuo270[address] [place], [place] [address]Dr. Donna Malone PUNCTURE SITE RB [facility] Comment on above: Performed By: #### A BG ####[facility] Mgxyihfxbt0940[address] [place], [place] [address]Dr. Donna Malone RATE [facility] Comment on above: Performed By: #### A BG ####[facility] Bzynwoeded[address] [place], [place] [address]Dr. Donna Malone VENT MODE [facility] Comment on above: Performed By: #### A BG ####[facility] Pbwugsvkio[address] [place], [place] [address]Dr. Donna Malone VT [facility] Comment on above: Performed By: #### A BG ####[facility] Vjtazdntsc[address] [place], [place] [address]Dr. Donna Malone BNPon 07-15-2022 Natriuretic peptide B (Bld) [Mass/Vol] 111.0 pg/mL Normal <=900.0 [facility] Comment on above: Performed By: #### B BANK CASHIER, CMP, CMADM ####[facility] Nzlpuflnlr84[address] [place], [place] [address]Wn. Donna Malone CARDIAC MJ 3-6on 2 CK [Catalytic activity/Vol] 102 U/L Normal 39-308 [facility] Comment on above: Performed By: #### C MREP ####[facility] Ygxnzprfjq4365 [place], [place] [address]Pn. Donna Malone CK.MB [Mass/Vol] 3.67 ng/mL Critically high <=3.60 [facility] Comment on above: Performed By: #### C MREP ####[facility] Nwgschffmi30[address] [place] [id number]. Donna Malone HSTROP 13.1 pg/mL Normal 4.0-76.1 [facility] Comment on above: Result Comment: CUT- OFF POINTS HAVE BEEN ESTABLISHED BASED ON THE FOURTH UNIVERSAL DEFINITIONS OF MYOCARDIALINFARCTION. THE UPPER REFERENCE LIMIT (URL) OF TROPONIN, DEFINED THE 99TH PERCENTILE OFcTnI DISTRIBUTION IN A REFERENCE POPULATION, HAS BEEN CONFIRMED THE DECISION THRESHOLDFOR [place] DIAGNOSIS. Performed By: #### C MREP ####[facility] Bxzhqftdpb7[address] [place] [id number]. Donna Malone CK [Catalytic activity/Vol] 89 U/L Normal 39-308 [facility] Comment on above: Performed By: #### C MREP ####[facility] Hgwjmgizzf7936 [place] [id number]. Donna Malone CK.MB [Mass/Vol] 3.37 ng/mL Normal <=3.60 [facility] Comment on above: Performed By: #### C MREP ####[facility] Tvmhrtqdnx5862 [place] [id number]. Donna Malone HSTROP 11.2 pg/mL Normal 4.0-76.1 [facility] Comment on above: Result Comment: CUT- OFF POINTS HAVE BEEN ESTABLISHED BASED ON THE FOURTH UNIVERSAL DEFINITIONS OF MYOCARDIALINFARCTION. THE UPPER REFERENCE LIMIT (URL) OF TROPONIN, DEFINED THE 99TH PERCENTILE OFcTnI DISTRIBUTION IN A REFERENCE POPULATION, HAS BEEN CONFIRMED THE DECISION THRESHOLDFOR [place] DIAGNOSIS. Performed By: #### C MREP ####[facility] Edboztznth[address] [place] [id number]. Donna Faisal CARDIAC MJ ADMITon 022 CK [Catalytic activity/Vol] 76 U/L Normal 39-308 [facility] Comment on above: Performed By: #### B BANK CASHIER, CMP, CMADM ####[facility] Qmtctdhcpv7[address] [place] [address]Dr. Donna Malone CK.MB [Mass/Vol] 2.59 ng/mL Normal <=3.60 [facility] Comment on above: Performed By: #### B BANK CASHIER, CMP, CMADM ####[facility] Zemwewpimg78[address] [place] [address]Dr. Rubyyvan Malone HSTROP 10.1 pg/mL Normal 4.0-76.1 [facility] Comment on above: Result Comment: CUT- OFF POINTS HAVE BEEN ESTABLISHED BASED ON THE FOURTH UNIVERSAL DEFINITIONS OF MYOCARDIALINFARCTION. THE UPPER REFERENCE LIMIT (URL) OF TROPONIN, DEFINED THE 99TH PERCENTILE OFcTnI DISTRIBUTION IN A REFERENCE POPULATION, HAS BEEN CONFIRMED THE DECISION THRESHOLDFOR [place] DIAGNOSIS. Performed By: #### B BANK CASHIER, CMP, CMADM ####[facility] Actwjhbjwr80[address] [place] [address]Dr. Donna Malone BINDU 109 ng/mL Critically high 16-96 [facility] Comment on above: Performed By: #### B BANK CASHIER, CMP, CMADM ####[facility] Xcxnhnruqf4[address] [place] [address]Dr. Donna Malone CBC AUTO DIFFon 07-15-2022 BASO # 0.0 103/ul Normal 0.0-0.1 [facility] Comment on above: Performed By: #### C BC ####[facility] Nhzrwrnanp0[address] [place] [address]Dr. Donna Malone Basophils/100 WBC (Bld) 0.7 % Normal 0.2-2.0 [facility] Comment on above: Performed By: #### C BC ####[facility] Stxzmmwlia7[address] [place] [address]Dr. Donna Malone EO # 0.1 103/ul Normal 0.0-0.7 [facility] Comment on above: Performed By: #### C BC ####[facility] Roqttbvnrr8674 [place] [address]Dr. Donna Faisal Eosinophils/100 WBC (Bld) 2.3 % Normal 0.9-7.0 [facility] Comment on above: Performed By: #### C BC ####[facility] Gskhhbwwlf[address] [place], [place] [address]Dr. Donna Malone Erythrocyte distribution width (RBC) [Ratio] 15.2 % Critically high 11.0-15.0 [facility] Comment on above: Performed By: #### C BC ####[facility] Hvjkxrebxu[address] [place], [place] [address]Dr. Donna Malone Hematocrit (Bld) [Volume fraction] 34.8 % Critically low 42.0-54.0 [facility] Comment on above: Performed By: #### C BC ####[facility] Crdyoqgayq90[address] [place], [place] [address]Dr. Donna Malone Hemoglobin (Bld) [Mass/Vol] 11.4 g/dL Critically low 14.0-18.0 [facility] Comment on above: Performed By: #### C BC ####[facility] Mmdgmfrqyg8[address] [place], [place] [address]Dr. Donna Malone IG # 0.01 10e3/ul Normal 0.00-0.03 [facility] Comment on above: Performed By: #### C BC ####[facility] Ytngfnrgea[address] [place], [place] [address]Dr. Donna Malone IG % 0.2 % Normal 0.0-0.5 [facility] Comment on above: Performed By: #### C BC ####[facility] Qumeboitek8710[address] [place], [place] [address]Dr. Donna Malone LYMPH # 1.6 103/ul Normal 1.2-3.8 [facility] Comment on above: Performed By: #### C BC ####[facility] Vlaeaiyvio33[address] [place], [place] [address]Dr. Donna Malone Lymphocytes/100 WBC (Bld) 26.4 % Normal 20.5-60.0 [facility] Comment on above: Performed By: #### C BC ####[facility] Jrmaiupnxb88[address] [place] [address]DrElizabeth Malone MANUAL DIFF REQ NO Normal [facility] Comment on above: Performed By: #### C BC ####[facility] Rorpificzx225[address] [place] [address]Dr. Donna Malone MCH (RBC) [Entitic mass] 30.7 pg Normal 25.9-34.0 [facility] Comment on above: Performed By: #### C BC ####[facility] Aruqshvdpm079[address] [place], [place] [address]Dr. Donna Malone MCHC (RBC) [Mass/Vol] 32.8 g/dL Normal 29.9-35.2 [facility] Comment on above: Performed By: #### C BC ####[facility] Iuikdvwfsl923[address] [place], [place] [address]DrElizabeth Malone MCV (RBC) [Entitic vol] 93.8 fL Normal 80.0-94.0 [facility] Comment on above: Performed By: #### C BC ####[facility] Dirityrkhq[address] [place], [place] [address]DrElizabeth Malone MONO # 0.5 103/ul Normal 0.3-0.8 [facility] Comment on above: Performed By: #### C BC ####[facility] Rrsvdkabor18[address] [place], [place] [address]DrElizabeth Malone Monocytes/100 WBC (Bld) 7.5 % Normal 1.7-12.0 [facility] Comment on above: Performed By: #### C BC ####[facility] Eepfmextus[address] [place], [place] [address]DrElizabeth Malone NEUT # 3.8 103/ul Normal 1.4-6.5 [facility] Comment on above: Performed By: #### C BC ####[facility] Yrxmmpfucw407[address] [place], [place] [address]DrElizabeth Malone Neutrophils/100 WBC (Bld) 62.9 % Normal 43.0-75.0 [facility] Comment on above: Performed By: #### C BC ####[facility] Hmaxvcmacn16[address] [place] [id number]. Donna Malone Platelet mean volume (Bld) [Entitic vol] 11.7 fL Normal 9.5-13.5 [facility] Comment on above: Performed By: #### C BC ####[facility] Uupgfhfbny[address] [place] [id number]. Donna Malone PLT 220 103/ul Normal 150-450 [facility] Comment on above: Performed By: #### C BC ####[facility] Ehanjywost6324 [place] [id number]. Donna Malone RBC 3.71 106/ul Critically low 4.70-6.10 [facility] Comment on above: Performed By: #### C BC ####[facility] Lghmebaypg8965 [place] [id number]. Donna Malone WBC 6.0 103/ul Normal 4.0-11.0 [facility] Comment on above: Performed By: #### C BC ####[facility] Exolbjruqb[address] [place] [id number]. Donna Faisal CT CSPINE WO CONon 2 CT CSPINE WO CON Normal [facility] CT HEAD WO CONon 07-15-2022 CT HEAD WO CON Normal [facility] CTA NECK WO W CONon 07-15-20 22 CTA NECK WO W CON Normal [facility] CULTURE URINEon 07-15-2022 CULTURE URINE Culture Observations : LIGHT GROWTH OF MIXED SKIN MICHAEL. NO POTENTIAL PATHOGENS SEEN. Normal [facility] Comment on above: Performed By: #### U RCX ####[facility] U[address]zdcphuc[address] [place], [place] [address]Dr. Donna Faisal Covid-19 PCR ([facility])on SARS-CoV-2 (COVID-19) RNA JOSÉ MIGUEL+probe Ql (Unsp spec) Not detected Normal NOT DETECTED [facility] Comment on above: Result Comment: [...] for this test is supported by the [place] of [employer] and Human Service's declaration that [...] be used). Performed By: #### C VDTBH ####[facility] [address] [place] [address]Dr. Donna Malone DEPAKENE/VALPROICon 07-15-20 22 DEPAKENE 53.6 ug/ml Normal 50.0-100.0 [facility] Comment on above: Performed By: #### V ALP ####[facility] [address]xsyrrm[address] [place] [address]Dr. Donna Malone DRUG SCREEN RAPID (URINE)on 07-15-2022 AMP Negative Normal NEGATIVE [facility] Comment on above: Performed By: #### D SHARONA, ERUR ####[facility] Wn[address]jv[address] [place] [address]Dr. Donna Malone BAR Negative Normal NEGATIVE [facility] Comment on above: Performed By: #### D SHARONA, ERUR ####[facility] [address]ce[address]qtsqb[address] [place] [id number]. Donna Malone BUP Negative Normal NEGATIVE [facility] Comment on above: Performed By: #### D SHARONA, ERUR ####[facility] Xmxemjbogj[address] [place] [id number]. oDnna Malone BZO Positive Abnormal NEGATIVE [facility] Comment on above: Performed By: #### D SHARONA, ERUR ####[facility] [address] [place] [id number]. Donna Malone EVONNE Negative Normal NEGATIVE [facility] Comment on above: Performed By: #### Calvin TABOR ERUR ####[facility] Bxdljybmuj[address] [place], [place] [address]Dr. Donna Malone CUT-OFFS SEE BELOW Normal [facility] Comment on above: Result Comment: [...] ng/mL Performed By: #### Calvin TABOR ERUR ####[facility] Yrpsdzegrz[address] [place], [place] [address]Dr. Donna Malone DRUG CUT HEADER DRUG CLASS TEST SYST EM CUT-OFF CONCENTRATIONS ARE FOLLOWS: Normal [facility] Comment on above: Performed By: #### Calvin TABOR ERUR ####[facility] Lueihdfadk[address] [place], [place] [address]Dr. Donna Malone mAMP Negative Normal NEGATIVE [facility] Comment on above: Performed By: #### Calvin TABOR, ERUR ####[facility] Rasyezmfol[address] [place], [place] [address]Dr. Donna Malone MTD Negative Normal NEGATIVE [facility] Comment on above: Performed By: #### Calvin TABOR ERUR ####[facility] Zschuhkisz[address] [place], [place] [address]Dr. Donna Malone OPI Negative Normal NEGATIVE [facility] Comment on above: Performed By: #### Calvin TABOR ERUR ####[facility] Dwrdaaflxe[address] [place], [place] [address]Dr. Donna Malone OXY Negative Normal NEGATIVE [facility] Comment on above: Performed By: #### Calvin TABOR, ERUR ####[facility] [address]ew[address]awcqh[address] [place] [address]Dr. Rubyyvan Malone PCP Negative Normal NEGATIVE [facility] Comment on above: Performed By: #### Calvin TABOR, ERUR ####[facility] Ksvziasrqs[address] [place] [address]Dr. Rubyyvan Malone PPX Negative Normal NEGATIVE [facility] Comment on above: Performed By: #### Calvin TABOR, ERUR ####[facility] Ojwphpsdpx[address] [place], [place] [address]Dr. Rubyyvan Malone TCA Positive Abnormal NEGATIVE [facility] Comment on above: Performed By: #### Calvin TABOR, ERUR ####[facility] Lwextrwpxx217[address] [place], [place] [address]Dr. Donna Malone THC Negative Normal NEGATIVE [facility] Comment on above: Performed By: #### Calvin TABOR, ERUR ####[facility] Yvbgucdjrs94[address] [place], [place] [address]Dr. Donna Malone ER URINE PROFILEon 2 Bilirubin Ql (U) Negative Normal NEGATIVE [facility] Comment on above: Performed By: #### Calvin TABOR, ERUR ####[facility] Lxwvvxxkwt020[address] [place], [place] [address]Dr. Donna Malone Clarity (U) CLEAR Normal CLEAR [facility] Comment on above: Performed By: #### Calvin TABOR, ERUR ####[facility] Pfbqenmeqm[address] [place], [place] [address]Dr. Donna Malone Color (U) YELLOW Normal YELLOW [facility] Comment on above: Performed By: #### Calvin TABOR, ERUR ####[facility] Bgmiwiwuwl[address] [place], [place] [address]Dr. Donna Malone ERUAHD A micrscopic examina tion will be performed if indicated. Normal [facility] Comment on above: Performed By: #### Calvin TABOR, ERUR ####[facility] Zdhltzxrah[address] [place], [place] [address]Dr. Donna Malone Glucose Ql (U) Negative Normal NEGATIVE [facility] Comment on above: Performed By: #### Calvin TABOR, ERUR ####[facility] Zmvyhaklby[address] [place], [place] [address]Dr. Donna Malone Hemoglobin Ql (U) Negative Normal NEGATIVE [facility] Comment on above: Performed By: #### Calvin TABOR, ERUR ####[facility] Kgvegrngbb49[address] [place], [place] [address]Dr. Donna Malone Ketones Ql (U) 15 mg/dl Abnormal NEGATIVE [facility] Comment on above: Performed By: #### WESLY LAUR ####[facility] Csfkajbeui37[address] [place], [place] [address]Dr. Donna Malone LEUKOCYTES Negative Normal NEGATIVE [facility] Comment on above: Performed By: #### Calvin TABOR ERUR ####[facility] Nbjlthwsrr701[address] [place], [place] [address]Dr. Donna Malone Nitrite Ql (U) Negative Normal NEGATIVE [facility] Comment on above: Performed By: #### WESLY LAUR ####[facility] Xtbpjrptdi[address] [place], [place] [address]Dr. Donna Malone pH (U) 6.0 [pH] Normal 5-9 [facility] Comment on above: Performed By: #### Calvin TABOR ERUR ####[facility] Xvguhpxaif[address] [place], [place] [address]Dr. Donna Malone SPEC GRAVITY >=1.030 Abnormal 1.005-<=1. 025 [facility] Comment on above: Performed By: #### Calvin TABOR ERUR ####[facility] Ezwstovcvp2424[address] [place], [place] [address]Dr. Donna Malone UA PROTEIN TRACE Normal NEGATIVE/ TRACE [facility] Comment on above: Performed By: #### Calvin TABOR, ERUR ####[facility] Fwmgaocqfw8[address] [place], [place] [address]Dr. Donna Malone UR MICRO IND NOT INDICATED Normal [facility] Comment on above: Performed By: #### D SHARONA, ERUR ####[facility] [address]miit[address] [place] [address]Dr. Rubyyvan Malone Urobilinogen Qn (U) 0.2 {Jermain'U}/dL Normal 0.2 - 1. 0 [facility] Comment on above: Performed By: #### D SHARONA, ERUR ####[facility] A[address]xp[address]guej[address] [place] [address]Dr. Rubyyvan Malone ETHANOL (BLD ALC)on 07-15-20 22 ALC NOTE NOTE: 80 mg/dl is th legal limit for a blood alcohol level Normal [facility] Comment on above: Performed By: #### E TH ####[facility] Mpjdbicpac[address] [place], [place] [address]Dr. Donna Malone Ethanol [Mass/Vol] mg/dL Normal [facility] Comment on above: Performed By: #### E TH ####[facility] Ykalrtipjg[address] [place], [place] [address]Dr. Donna Malone LACTATE/LACTIC ACIDon 2021 Lactate [Moles/Vol] 1.3 mmol/L Normal 0.4-1.9 [facility] Comment on above: Performed By: #### L ACT ####[facility] Ewinidcyhk[address] [place], [place] [address]Dr. Donna Malone PROF 14(COMP METB)on 022 Albumin [Mass/Vol] 2.9 g/dL Critically low 3.4-5.0 [facility] Comment on above: Performed By: #### B BANK CASHIER, CMP, CMADM ####[facility] Uppxosdrpp[address] [place], [place] [address]Dr. Donna Malone Albumin/Globulin [Mass ratio] 0.9 {ratio} Normal [facility] Comment on above: Performed By: #### B BANK CASHIER, CMP, CMADM ####[facility] Fmhhvdurfz[address] [place], [place] [address]Dr. Donna Malone ALP [Catalytic activity/Vol] 37 U/L Critically low 46-116 [facility] Comment on above: Performed By: #### B BANK CASHIER, CMP, CMADM ####[facility] R[address]xczthd[address] [place] [address]Dr. Rubyyvan Malone ALT [Catalytic activity/Vol] 10 U/L Critically low 16-63 [facility] Comment on above: Performed By: #### B BANK CASHIER, CMP, CMADM ####[facility] Dlfnhhdyft37[address] [place] [address]Dr. Donna Malone Anion gap [Moles/Vol] 8.0 mmol/L Normal [facility] Comment on above: Performed By: #### B BANK CASHIER, CMP, CMADM ####[facility] Jpynsbgcxf16[address] [place] [address]Dr. Rubyvyan Malone AST [Catalytic activity/Vol] 12 U/L Critically low 15-37 [facility] Comment on above: Performed By: #### B BANK CASHIER, CMP, CMADM ####[facility] Pkewbhhils[address] [place], [place] [address]Dr. Donna Malone Bilirubin [Mass/Vol] 0.3 mg/dL Normal 0.2-1.0 [facility] Comment on above: Performed By: #### B BANK CASHIER, CMP, CMADM ####[facility] Ilrrlpsnhj[address] [place], [place] [address]Dr. Donna Malone Calcium [Mass/Vol] 7.9 mg/dL Critically low 8.5-10.1 [facility] Comment on above: Performed By: #### B BANK CASHIER, CMP, CMADM ####[facility] Uexetzjyfz40[address] [place] [address]Dr. Donna Malone Chloride [Moles/Vol] 107 mmol/L Normal 98-107 [facility] Comment on above: Performed By: #### B BANK CASHIER, CMP, CMADM ####[facility] Ayihevwpwb97[address] [place], [place] [address]Dr. Donna Malone CO2 [Moles/Vol] 27.1 mmol/L Normal 21.0-32.0 [facility] Comment on above: Performed By: #### B BANK CASHIER, CMP, CMADM ####[facility] Pbdhokzgqf[address] [place], [place] [address]Dr. Donna Malone Creatinine [Mass/Vol] 0.99 mg/dL Normal 0.70-1.30 [facility] Comment on above: Performed By: #### B BANK CASHIER, CMP, CMADM ####[facility] W[address]rkjkrzb[address] [place] [address]Dr. Donna Malone EGFR-AF CZECH >60 Normal >=60 [facility] Comment on above: Performed By: #### B BANK CASHIER, CMP, CMADM ####[facility] Dumhmdavwl[address] [place] [address]Dr. Donna Malone EGFR-NON AF CZECH >60 Normal >=60 [facility] Comment on above: Performed By: #### B BANK CASHIER, CMP, CMADM ####[facility] Kbrjmovviv9[address] [place] [address]Dr. Donna Malone Globulin (S) [Mass/Vol] 3.3 g/dL Normal [facility] Comment on above: Performed By: #### B BANK CASHIER, CMP, CMADM ####[facility] Fbyrhwkmny2[address] [place] [address]Dr. Donna Malone Glucose [Mass/Vol] 101 mg/dL Normal 74-106 [facility] Comment on above: Performed By: #### B BANK CASHIER, CMP, CMADM ####[facility] Vcxwhqkliw66[address] [place] [address]Dr. Donna Malone Potassium [Moles/Vol] 4.1 mmol/L Normal 3.5-5.1 [facility] Comment on above: Performed By: #### B BANK CASHIER, CMP, CMADM ####[facility] Tcxaafwwzy[address] [place] [address]Dr. Donna Malone Protein [Mass/Vol] 6.2 g/dL Critically low 6.4-8.2 [facility] Comment on above: Performed By: #### B BANK CASHIER, CMP, CMADM ####[facility] Zbdbnkrlba4[address] [place] [address]Dr. Donna Malone Sodium [Moles/Vol] 138 mmol/L Normal 136-145 [facility] Comment on above: Performed By: #### B BANK CASHIER, CMP, CMADM ####[facility] Mkoamcoijx[address] [place] [phone]. Donna Malone Urea nitrogen [Mass/Vol] 16.0 mg/dL Normal 7.0-18.0 [facility] Comment on above: Performed By: #### B BANK CASHIER, CMP, CMADM ####[facility] Fvghtaksvc6[address] [place] [phone]. Donna Malone Urea nitrogen/Creatinine [Mass ratio] 16.2 mg/mg Normal [facility] Comment on above: Performed By: #### B BANK CASHIER, CMP, CMADM ####[facility] Ybrbtobedn[address] [place] [address]Dr. Donna Malone PROTIMEon 07-15-2022 INR Coag (PPP) [Relative time] 1.06 {INR} Normal [facility] Comment on above: Performed By: #### P T, PTT ####[facility] Vrswryzazw[address] [place], [place] [address]Dr. Donna Malone INR GUIDELINES SEE BELOW Normal [facility] Comment on above: Result Comment: FLORESITA RED INR: 2.0 - 3.0 CONDITIONS NOT LISTED BELOW 2.5 - 3.5 FOR PROSTHETIC HEART VALVE REPLACEMENT 2.5 - 3.5 RECURRENT THROMBOSIS Performed By: #### P T, PTT ####[facility] Abgqxwwpis[address] [place], [place] [address]Dr. Donna Malone PT Coag (PPP) [Time] 11.4 s Normal 9.0-11.6 [facility] Comment on above: Performed By: #### P T, PTT ####[facility] Ruavrruhnu97[address] [place], [place] [address]Dr. Donna Malone PTTon 07-15-2022 aPTT Coag (Bld) [Time] 30.8 s Normal 22.3-36.2 [facility] Comment on above: Performed By: #### P T, PTT ####[facility] Oecgsmbfat[address] [place], [place] [address]Dr. Donna Malone XR CHEST 1 Von 07-15-2022 XR CHEST 1 V Normal [facility] CULTURE URINEon 06-24-2022 CULTURE URINE Normal [facility] Comment on above: Performed By: #### U RCX ####[facility] Fzdwxoncuc[address] [place], [place] [address]Dr. Donna Malone UA RANDOM W/MICROSCOPICon BACTERIA NONE SEEN Normal NONE SEEN [facility] Comment on above: Performed By: #### U AMIC ####[facility] Oznpiiwsfc98[address] [place], [place] [address]Dr. Donna Malone Bilirubin Ql (U) Negative Normal NEGATIVE [facility] Comment on above: Performed By: #### U AMIC ####[facility] Vyzwdslmmq[address] [place], [place] [address]Dr. Donna Malone CAST NONE SEEN Normal NONE SEEN [facility] Comment on above: Performed By: #### U AMIC ####[facility] Qftivpuohy48[address] [place], [place] [address]Dr. Donna Malone Clarity (U) CLEAR Normal CLEAR [facility] Comment on above: Performed By: #### U AMIC ####[facility] Mizeikiszi2444[address] [place], [place] [address]Dr. Donna Malone Color (U) DK. YELLOW Normal YELLOW [facility] Comment on above: Performed By: #### U AMIC ####[facility] Vklrryjuam2[address] [place], [place] [address]Dr. Donna Malone Crystals LM Nom (Urine sed) NONE SEEN Normal NONE SEEN [facility] Comment on above: Performed By: #### U AMIC ####[facility] Dvmhvhoxgy[address] [place], [place] [address]Dr. Donna Malone Epithelial cells LM Ql (Urine sed) NONE SEEN Normal NONE SEEN /RARE [facility] Comment on above: Performed By: #### U AMIC ####[facility] Xaeqxmllhn[address] [place], [place] [address]Dr. Donna Malone Glucose Ql (U) 100 mg/dl Abnormal NEGATIVE [facility] Comment on above: Performed By: #### U AMIC ####[facility] Lorolrzmoe40[address] [place], [place] [address]Dr. Donna Malone Hemoglobin Ql (U) Negative Normal NEGATIVE [facility] Comment on above: Performed By: #### U AMIC ####[facility] Cbutezmpgx37[address] [place] [address]Dr. Rubyyvan Malone Ketones Ql (U) TRACE Abnormal NEGATIVE [facility] Comment on above: Performed By: #### U AMIC ####[facility] Tlfcmfjbgs0136 [place] [address]Dr. Donna Malone LEUKOCYTES Negative Normal NEGATIVE [facility] Comment on above: Performed By: #### U AMIC ####[facility] Xdmojbhilv[address] [place] [address]Dr. Donna Malone MUCOUS SMALL Abnormal NONE SEEN [facility] Comment on above: Performed By: #### U AMIC ####[facility] Xsgjoyqgth[address] [place], [place] [address]Dr. Donna Malone Nitrite Ql (U) Negative Normal NEGATIVE [facility] Comment on above: Performed By: #### U AMIC ####[facility] Kgdomuapbn8[address] [place], [place] [address]Dr. Donna Malone pH (U) 6.0 [pH] Normal 5-9 [facility] Comment on above: Performed By: #### U AMIC ####[facility] Lhbsgfvjxc[address] [place], [place] [address]Dr. Donna Malone RBC NONE SEEN Abnormal 0-2 [facility] Comment on above: Performed By: #### U AMIC ####[facility] Etjingspju[address] [place], [place] [address]Dr. Donna Malone SPEC GRAVITY 1.030 Abnormal 1.005-<=1. 025 [facility] Comment on above: Performed By: #### U AMIC ####[facility] Yoaqgggjkh047[address] [place], [place] [address]Dr. Donna Malone UA PROTEIN Negative Normal NEGATIVE/ TRACE [facility] Comment on above: Performed By: #### U AMIC ####[facility] Atwhufivnx[address] [place], [place] [address]Dr. Donna Malone Urobilinogen Qn (U) 0.2 {Jermain'U}/dL Normal 0.2 - 1. 0 [facility] Comment on above: Performed By: #### U AMIC ####[facility] [address]bo[address] [place], [place] [address]Hh. Donna Malone WBC 2-5 Abnormal NONE SEEN [facility] Comment on above: Performed By: #### U AMIC ####[facility] Vch[address]wilnl[address] [place], [place] [address]Bo. Donna Malone COMPLIANCE DRUG SCREENon PDF . Normal [facility] Comment on above: Performed By: #### D SDOALC ####[facility] Mov[address]ywt[address] [place], [place] [address]Hs. Donna Malone Summary FINAL Normal [facility] Comment on above: Result Comment: =====TOXASSURE [...] please call . Performed By: #### D [facility] ####[facility] Enrqxgiwpz24[address] [place] [phone]. Donna Malone CBC AUTO DIFFon 05-16-2022 BASO # 0.0 103/ul Normal 0.0-0.1 [facility] Comment on above: Performed By: #### C BC ####[facility] Zvmnfqrpsq[address] [place], [place] [address]Dr. Rubyyvan Malone Basophils/100 WBC (Bld) 0.4 % Normal 0.2-2.0 [facility] Comment on above: Performed By: #### C BC ####[facility] Juwgdivbql[address] [place], [place] [address]Dr. Rubyyvan Malone EO # 0.1 103/ul Normal 0.0-0.7 [facility] Comment on above: Performed By: #### C BC ####[facility] Updpgmjpue96[address] [place], [place] [address]Dr. Donna Malone Eosinophils/100 WBC (Bld) 0.9 % Normal 0.9-7.0 [facility] Comment on above: Performed By: #### C BC ####[facility] Eiuevrlqom[address] [place], [place] [address]Dr. Rubyyvan Malone Erythrocyte distribution width (RBC) [Ratio] 14.9 % Normal 11.0-15.0 [facility] Comment on above: Performed By: #### C BC ####[facility] Wfynojghyn[address] [place], [place] [address]Dr. Rubyyvan Malone Hematocrit (Bld) [Volume fraction] 41.0 % Critically low 42.0-54.0 [facility] Comment on above: Performed By: #### C BC ####[facility] Wfovvahxhd[address] [place], [place] [address]Dr. Donna Malone Hemoglobin (Bld) [Mass/Vol] 13.3 g/dL Critically low 14.0-18.0 [facility] Comment on above: Performed By: #### C BC ####[facility] Lcajksjnlp[address] [place], [place] [address]Dr. Donna Malone IG # 0.03 10e3/ul Normal 0.00-0.03 [facility] Comment on above: Performed By: #### C BC ####[facility] Acibinbqnp[address] [place] [id number]. Donna Malone IG % 0.3 % Normal 0.0-0.5 [facility] Comment on above: Performed By: #### C BC ####[facility] Hxafboszws28[address] [place] [id number]. Donna Malone LYMPH # 1.4 103/ul Normal 1.2-3.8 [facility] Comment on above: Performed By: #### C BC ####[facility] Umubdbdqtp05[address] [place] [id number]. Donna Faisal Lymphocytes/100 WBC (Bld) 15.3 % Critically low 20.5-60.0 [facility] Comment on above: Performed By: #### C BC ####[facility] [address]zsyhi[address] [place] [address]Dr. Rubyyvan Malone MANUAL DIFF REQ NO Normal [facility] Comment on above: Performed By: #### C BC ####[facility] [address]ss[address]msf[address] [place], [place] [address]Dr. Donna Malone MCH (RBC) [Entitic mass] 29.4 pg Normal 25.9-34.0 [facility] Comment on above: Performed By: #### C BC ####[facility] Kvvnlnrnlz27[address] [place] [phone]. Donna Malone MCHC (RBC) [Mass/Vol] 32.4 g/dL Normal 29.9-35.2 [facility] Comment on above: Performed By: #### C BC ####[facility] P[address]updhztb7[address] [place] [phone]. Donna Malone MCV (RBC) [Entitic vol] 90.5 fL Normal 80.0-94.0 [facility] Comment on above: Performed By: #### C BC ####[facility] Ngffjrciae[address] [place], [place] [address]Dr. Donna Faisal MONO # 0.8 103/ul Normal 0.3-0.8 [facility] Comment on above: Performed By: #### C BC ####[facility] Biuvexnfpa[address] [place] [id number]. Donna Malone Monocytes/100 WBC (Bld) 8.7 % Normal 1.7-12.0 [facility] Comment on above: Performed By: #### C BC ####[facility] Oxw[address]fhrtn[address] [place] [id number]. Donna Malone NEUT # 6.9 103/ul Critically high 1.4-6.5 [facility] Comment on above: Performed By: #### C BC ####[facility] Ogisfauzvy[address] [place] [id number]. Donna Malone Neutrophils/100 WBC (Bld) 74.4 % Normal 43.0-75.0 [facility] Comment on above: Performed By: #### C BC ####[facility] [address]vyevyxx[address] [place] [address]Dr. Donna Malone Platelet mean volume (Bld) [Entitic vol] 11.9 fL Normal 9.5-13.5 [facility] Comment on above: Performed By: #### C BC ####[facility] [address]xbvqmi[address] [place] [address]Dr. Donna Malone PLT 174 103/ul Normal 150-450 [facility] Comment on above: Performed By: #### C BC ####[facility] Liuqxxwpyw39[address] [place] [id number]. Donna Malone RBC 4.53 106/ul Critically low 4.70-6.10 [facility] Comment on above: Performed By: #### C BC ####[facility] Ljhfxkotyc3[address] [place] [id number]. Donna Malone WBC 9.2 103/ul Normal 4.0-11.0 [facility] Comment on above: Performed By: #### C BC ####[facility] Nsbbcdxpqa[address] [place] [address]Dr. Donna Malone PROF 14(COMP METB)on 022 Albumin [Mass/Vol] 3.0 g/dL Critically low 3.4-5.0 [facility] Comment on above: Performed By: #### C MP ####[facility] [address]udamctiy[address] [place] [address]Dr. Donna Malone Albumin/Globulin [Mass ratio] 0.8 {ratio} Normal [facility] Comment on above: Performed By: #### C MP ####[facility] X[address]mkgznbd4[address] [place] [address]Dr. Donna Malone ALP [Catalytic activity/Vol] 39 U/L Critically low 46-116 [facility] Comment on above: Performed By: #### C MP ####[facility] [address]scnrkmqgb[address] [place] [address]Dr. Donna Malone ALT [Catalytic activity/Vol] 16 U/L Normal 16-63 [facility] Comment on above: Performed By: #### C MP ####[facility] Fxvihkoyxf[address] [place], [place] [address]Dr. Donna Malone Anion gap [Moles/Vol] 10.8 mmol/L Normal [facility] Comment on above: Performed By: #### C MP ####[facility] Cjjttketos[address] [place], [place] [address]Dr. Donna Malone AST [Catalytic activity/Vol] 9 U/L Critically low 15-37 [facility] Comment on above: Performed By: #### C MP ####[facility] Hlqqlzfsmj[address] [place], [place] [address]Dr. Donna Malone Bilirubin [Mass/Vol] 0.3 mg/dL Normal 0.2-1.0 [facility] Comment on above: Performed By: #### C MP ####[facility] Mxuxfipeuw[address] [place], [place] [address]Dr. Donna Malone Calcium [Mass/Vol] 8.8 mg/dL Normal 8.5-10.1 [facility] Comment on above: Performed By: #### C MP ####[facility] Hfexdkrjsm65[address] [place], [place] [address]Dr. Donna Malone Chloride [Moles/Vol] 105 mmol/L Normal 98-107 [facility] Comment on above: Performed By: #### C MP ####[facility] Srjfmboiad38[address] [place] [id number]. Donna Malone CO2 [Moles/Vol] 26.7 mmol/L Normal 21.0-32.0 [facility] Comment on above: Performed By: #### C MP ####[facility] Jbuggshtrd6098 [place] [id number]. Donna Malone Creatinine [Mass/Vol] 0.97 mg/dL Normal 0.70-1.30 [facility] Comment on above: Performed By: #### C MP ####[facility] Lxtimuxewc[address] [place] [id number]. Donna Malone EGFR-AF CZECH >60 Normal >=60 [facility] Comment on above: Performed By: #### C MP ####[facility] Gdhrvitynw[address] [place] [address]Dr. Donna Malone EGFR-NON AF CZECH >60 Normal >=60 [facility] Comment on above: Performed By: #### C MP ####[facility] Njfpgqkdmf29[address] [place] [address]Dr. Donna Malone Globulin (S) [Mass/Vol] 3.7 g/dL Normal [facility] Comment on above: Performed By: #### C MP ####[facility] Apnofdedbj4316[address] [place], [place] [address]Dr. Donna Malone Glucose [Mass/Vol] 98 mg/dL Normal 74-106 [facility] Comment on above: Performed By: #### C MP ####[facility] Fagylruaml7[address] [place] [address]Dr. Donna Malone Potassium [Moles/Vol] 3.5 mmol/L Normal 3.5-5.1 [facility] Comment on above: Performed By: #### C MP ####[facility] Kvazwjesmj[address] [place], [place] [address]Dr. Donna Malone Protein [Mass/Vol] 6.7 g/dL Normal 6.4-8.2 [facility] Comment on above: Performed By: #### C MP ####[facility] Vdfhtyfrrt[address] [place], [place] [address]Dr. Donna Malone Sodium [Moles/Vol] 139 mmol/L Normal 136-145 [facility] Comment on above: Performed By: #### C MP ####[facility] Azwipqomgl9[address] [place], [place] [address]Dr. Donna Malone Urea nitrogen [Mass/Vol] 11.0 mg/dL Normal 7.0-18.0 [facility] Comment on above: Performed By: #### C MP ####[facility] Abbchcbemt613[address] [place], [place] [address]Dr. Donna Faisal Urea nitrogen/Creatinine [Mass ratio] 11.3 mg/mg Normal [facility] Comment on above: Performed By: #### C MP ####[facility] Wwinexrvfo3260[address] [place], [place] [address]Dr. Donna Faisal T3, TOTAL (TRIIODOTHYRONINE) on 05-16-2022 T3, TOTAL 86 ng/dL Normal 71-180 [facility] Comment on above: Performed By: #### T 3TOTAL ####[facility] Eiyshbxlgo398[address] [place], [place] [address]Dr. Donna Faisal T4 LABCORPon 05-16-2022 T4 [Mass/Vol] 6.4 ug/dL Normal 4.5-12.0 [facility] Comment on above: Performed By: #### T 4LC ####[facility] Cvpjffwslb8[address] [place], [place] [address]Dr. Donna Faisal CBC AUTO DIFFon 05-15-2022 BASO # 0.0 103/ul Normal 0.0-0.1 [facility] Comment on above: Performed By: #### C BC ####[facility] Xshlnxpjxd027[address] [place], [place] [address]Dr. Rubyyvan Malone Basophils/100 WBC (Bld) 0.3 % Normal 0.2-2.0 [facility] Comment on above: Performed By: #### C BC ####[facility] Yukuhrtojy31968[address] [place], [place] [address]Dr. Donna Malone EO # 0.2 103/ul Normal 0.0-0.7 [facility] Comment on above: Performed By: #### C BC ####[facility] Scealjquao6937 [place] [address]Dr. Donna Malone Eosinophils/100 WBC (Bld) 2.0 % Normal 0.9-7.0 [facility] Comment on above: Performed By: #### C BC ####[facility] Oefaeoomdx2564 [place] [address]Dr. Donna Malone Erythrocyte distribution width (RBC) [Ratio] 14.6 % Normal 11.0-15.0 [facility] Comment on above: Performed By: #### C BC ####[facility] Rzkqwfwgbp86[address] [place], [place] [address]Dr. Donna Malone Hematocrit (Bld) [Volume fraction] 38.2 % Critically low 42.0-54.0 [facility] Comment on above: Performed By: #### C BC ####[facility] Ktaejlzxfh23[address] [place], [place] [address]Dr. Donna Malone Hemoglobin (Bld) [Mass/Vol] 12.7 g/dL Critically low 14.0-18.0 [facility] Comment on above: Performed By: #### C BC ####[facility] Eyboaqwfef766[address] [place], [place] [address]Dr. Donna Malone IG # 0.04 10e3/ul Critically high 0.00-0.03 [facility] Comment on above: Performed By: #### C BC ####[facility] Eowvtkmvgp4929[address] [place], [place] [address]Dr. Donna Malone IG % 0.4 % Normal 0.0-0.5 [facility] Comment on above: Performed By: #### C BC ####[facility] Wkqtruymck180[address] [place], [place] [address]Dr. Donna Malone LYMPH # 1.4 103/ul Normal 1.2-3.8 [facility] Comment on above: Performed By: #### C BC ####[facility] Ywcwydqwey366[address] [place], [place] [address]Dr. Donna Malone Lymphocytes/100 WBC (Bld) 14.9 % Critically low 20.5-60.0 [facility] Comment on above: Performed By: #### C BC ####[facility] Kvcoiftnau[address] [place] [address]Dr. Donna Malone MANUAL DIFF REQ NO Normal [facility] Comment on above: Performed By: #### C BC ####[facility] Cycgnthyia5169 [place] [id number]. Donna Malone MCH (RBC) [Entitic mass] 30.0 pg Normal 25.9-34.0 [facility] Comment on above: Performed By: #### C BC ####[facility] Dmjvigfidl7705 [place] [address]Dr. Donna Malone MCHC (RBC) [Mass/Vol] 33.2 g/dL Normal 29.9-35.2 [facility] Comment on above: Performed By: #### C BC ####[facility] Ldqupknzpo23[address] [place], [place] [address]Dr. Donna Malone MCV (RBC) [Entitic vol] 90.3 fL Normal 80.0-94.0 [facility] Comment on above: Performed By: #### C BC ####[facility] Eectfmrkcz[address] [place], [place] [address]DrElizabeth Malone MONO # 0.8 103/ul Normal 0.3-0.8 [facility] Comment on above: Performed By: #### C BC ####[facility] Tdjbjackaq9[address] [place], [place] [address]Dr. Donna Malone Monocytes/100 WBC (Bld) 8.5 % Normal 1.7-12.0 [facility] Comment on above: Performed By: #### C BC ####[facility] Xbxurmzpik[address] [place], [place] [address]DrElizabeth Malone NEUT # 6.8 103/ul Critically high 1.4-6.5 [facility] Comment on above: Performed By: #### C BC ####[facility] Ifffsnhvdf[address] [place], [place] [address]Dr. Donna Malone Neutrophils/100 WBC (Bld) 73.9 % Normal 43.0-75.0 [facility] Comment on above: Performed By: #### C BC ####[facility] Wwoevdyqfk3137 [place] [address]Dr. Donna Malone Platelet mean volume (Bld) [Entitic vol] 12.0 fL Normal 9.5-13.5 [facility] Comment on above: Performed By: #### C BC ####[facility] Gxsamdhboc9934 [place] [address]Dr. Donna Malone PLT 154 103/ul Normal 150-450 [facility] Comment on above: Performed By: #### C BC ####[facility] Qfrgzyctqz8447 [place] [address]Dr. Donna Malone RBC 4.23 106/ul Critically low 4.70-6.10 [facility] Comment on above: Performed By: #### C BC ####[facility] Chcvwvecqj2782 [place] [address]Dr. Donna Malone WBC 9.2 103/ul Normal 4.0-11.0 [facility] Comment on above: Performed By: #### C BC ####[facility] Zbqpfcjuhf1602 [place] [address]DrElizabeth Malone PROF 14(COMP METB)on 022 Albumin [Mass/Vol] 2.9 g/dL Critically low 3.4-5.0 [facility] Comment on above: Performed By: #### C MP ####[facility] Akeiytppzr2194 [place] [address]DrElizabeth Malone Albumin/Globulin [Mass ratio] 0.9 {ratio} Normal [facility] Comment on above: Performed By: #### C MP ####[facility] Jtjznlkhde14[address] [place] [address]DrElizabeth Malone ALP [Catalytic activity/Vol] 41 U/L Critically low 46-116 [facility] Comment on above: Performed By: #### C MP ####[facility] Qaoisbmkrj0993 [place] [address]DrElizabeth Malone ALT [Catalytic activity/Vol] 12 U/L Critically low 16-63 [facility] Comment on above: Performed By: #### C MP ####[facility] Iijtyldrgg7749 [place] [address]Dr. Donna Malone Anion gap [Moles/Vol] 5.6 mmol/L Normal [facility] Comment on above: Performed By: #### C MP ####[facility] Ykmsigqoiu15[address] [place], [place] [address]Dr. Donna Malone AST [Catalytic activity/Vol] 8 U/L Critically low 15-37 [facility] Comment on above: Performed By: #### C MP ####[facility] Fwronumqql[address] [place], [place] [address]Dr. Donna Malone Bilirubin [Mass/Vol] 0.5 mg/dL Normal 0.2-1.0 [facility] Comment on above: Performed By: #### C MP ####[facility] Ifqyfenuwz9815[address] [place], [place] [address]Dr. Donna Malone Calcium [Mass/Vol] 8.3 mg/dL Critically low 8.5-10.1 [facility] Comment on above: Performed By: #### C MP ####[facility] Jmgxjyfjlx6312[address] [place], [place] [address]Dr. Donna Faisal Chloride [Moles/Vol] 106 mmol/L Normal 98-107 [facility] Comment on above: Performed By: #### C MP ####[facility] Zhxaxmqzkg890[address] [place], [place] [address]Dr. Donna Malone CO2 [Moles/Vol] 23.1 mmol/L Normal 21.0-32.0 [facility] Comment on above: Performed By: #### C MP ####[facility] Fzbdarboyz27[address] [place], [place] [address]Dr. Donna Malone Creatinine [Mass/Vol] 0.82 mg/dL Normal 0.70-1.30 [facility] Comment on above: Performed By: #### C MP ####[facility] Wwnaaxfeio284[address] [place], [place] [address]Dr. Rubyyvan Faisal EGFR-AF CZECH >60 Normal >=60 [facility] Comment on above: Performed By: #### C MP ####[facility] Meheqsoqql4125 [place] [id number]. Donna Malone EGFR-NON AF CZECH >60 Normal >=60 [facility] Comment on above: Performed By: #### C MP ####[facility] Ddvbjqopmf2843 [place] [id number]. Donna Malone Globulin (S) [Mass/Vol] 3.2 g/dL Normal [facility] Comment on above: Performed By: #### C MP ####[facility] Xabfqwxxsc7481 [place] [address]Dr. Donna Malone Glucose [Mass/Vol] 81 mg/dL Normal 74-106 [facility] Comment on above: Performed By: #### C MP ####[facility] Xuyzeridgu2883 [place] [address]Dr. Donna Malone Potassium [Moles/Vol] 3.7 mmol/L Normal 3.5-5.1 [facility] Comment on above: Performed By: #### C MP ####[facility] Ouilazmewy40[address] [place], [place] [address]Dr. Donna Malone Protein [Mass/Vol] 6.1 g/dL Critically low 6.4-8.2 [facility] Comment on above: Performed By: #### C MP ####[facility] Sscvguhhih8112[address] [place], [place] [address]Dr. Donna Malone Sodium [Moles/Vol] 131 mmol/L Critically low 136-145 [facility] Comment on above: Performed By: #### C MP ####[facility] Etwljrncxc4362 [place] [address]Dr. Donna Malone Urea nitrogen [Mass/Vol] 17.0 mg/dL Normal 7.0-18.0 [facility] Comment on above: Performed By: #### C MP ####[facility] Vuiklyafjl9646 [place] [address]Dr. Donna Malone Urea nitrogen/Creatinine [Mass ratio] 20.7 mg/mg Normal [facility] Comment on above: Performed By: #### C MP ####[facility] Kpnciuvkpc6207 [place] [id number]. Donna Malone CBC AUTO DIFFon 05-14-2022 BASO # 0.1 103/ul Normal 0.0-0.1 [facility] Comment on above: Performed By: #### C BC ####[facility] Ptklwjqlvf0549[address] [place], [place] [address]Dr. Donna Faisal Basophils/100 WBC (Bld) 0.8 % Normal 0.2-2.0 [facility] Comment on above: Performed By: #### C BC ####[facility] Nfreyygrst701[address] [place], [place] [address]Dr. Donna Malone EO # 0.3 103/ul Normal 0.0-0.7 [facility] Comment on above: Performed By: #### C BC ####[facility] Byarbdblli354[address] [place], [place] [address]Dr. Rubyyvan Malone Eosinophils/100 WBC (Bld) 4.2 % Normal 0.9-7.0 [facility] Comment on above: Performed By: #### C BC ####[facility] Xxffthozwa6705[address] [place], [place] [address]Dr. Donna Malone Erythrocyte distribution width (RBC) [Ratio] 14.7 % Normal 11.0-15.0 [facility] Comment on above: Performed By: #### C BC ####[facility] Vlgqgdtjyg[address] [place], [place] [address]Dr. Donna Malone Hematocrit (Bld) [Volume fraction] 36.5 % Critically low 42.0-54.0 [facility] Comment on above: Performed By: #### C BC ####[facility] Lmhcanhkcz1915[address] [place], [place] [address]Dr. Rubyyvan Malone Hemoglobin (Bld) [Mass/Vol] 11.9 g/dL Critically low 14.0-18.0 [facility] Comment on above: Performed By: #### C BC ####[facility] Yifapjahxg9817[address] [place], [place] [address]Dr. Donna Malone IG # 0.01 10e3/ul Normal 0.00-0.03 [facility] Comment on above: Performed By: #### C BC ####[facility] Gpquzsphnq0834 [place] [id number]. Donna Malone IG % 0.2 % Normal 0.0-0.5 [facility] Comment on above: Performed By: #### C BC ####[facility] Wpkxjpotpm4270 [place] [id number]. Donna Malone LYMPH # 2.1 103/ul Normal 1.2-3.8 [facility] Comment on above: Performed By: #### C BC ####[facility] Nhueabgehx14[address] [place], [place] [address]Dr. Rubyyvan Malone Lymphocytes/100 WBC (Bld) 32.1 % Normal 20.5-60.0 [facility] Comment on above: Performed By: #### C BC ####[facility] Oxvshcuvnq107[address] [place], [place] [address]Dr. Donna Malone MANUAL DIFF REQ NO Normal [facility] Comment on above: Performed By: #### C BC ####[facility] Rnklccrxwy[address] [place], [place] [id number]. Donna Malone MCH (RBC) [Entitic mass] 29.7 pg Normal 25.9-34.0 [facility] Comment on above: Performed By: #### C BC ####[facility] Zgdtcohtpz[address] [place], [place] [address]Dr. Donna Malone MCHC (RBC) [Mass/Vol] 32.6 g/dL Normal 29.9-35.2 [facility] Comment on above: Performed By: #### C BC ####[facility] Lxzzpyulkg0[address] [place], [place] [address]Dr. Donna Malone MCV (RBC) [Entitic vol] 91.0 fL Normal 80.0-94.0 [facility] Comment on above: Performed By: #### C BC ####[facility] Gthzgldlme[address] [place], [place] [address]Dr. Donna Malone MONO # 0.5 103/ul Normal 0.3-0.8 [facility] Comment on above: Performed By: #### C BC ####[facility] Sldznhuglk1030 [place] [id number]. Donna Malone Monocytes/100 WBC (Bld) 8.1 % Normal 1.7-12.0 [facility] Comment on above: Performed By: #### C BC ####[facility] Usabolzlrz1010 [place] [id number]. Donna Malone NEUT # 3.5 103/ul Normal 1.4-6.5 [facility] Comment on above: Performed By: #### C BC ####[facility] Uxvokkfnrv3516 [place] [address]Dr. Donna Malone Neutrophils/100 WBC (Bld) 54.6 % Normal 43.0-75.0 [facility] Comment on above: Performed By: #### C BC ####[facility] Zzmrhixhvk3340 [place] [address]Dr. Donna Malone Platelet mean volume (Bld) [Entitic vol] 12.0 fL Normal 9.5-13.5 [facility] Comment on above: Performed By: #### C BC ####[facility] Tawihqognl[address] [place], [place] [address]Dr. Donna Malone PLT 152 103/ul Normal 150-450 [facility] Comment on above: Performed By: #### C BC ####[facility] Jkqyzwlczg[address] [place], [place] [address]Dr. Donna Malone RBC 4.01 106/ul Critically low 4.70-6.10 [facility] Comment on above: Performed By: #### C BC ####[facility] Wuurmempyy47[address] [place], [place] [address]Dr. Donna Malone WBC 6.4 103/ul Normal 4.0-11.0 [facility] Comment on above: Performed By: #### C BC ####[facility] Kxudqnrjpi107[address] [place], [place] [address]Dr. Donna Malone DEPAKENE/VALPROICon 05-14-20 22 DEPAKENE 17.3 ug/ml Critically low 50.0-100.0 [facility] Comment on above: Performed By: #### V ALP ####[facility] Uhpqatofqq7[address] [place] [address]Dr. Donna Malone POINT OF CARE GLUCOSEon Glucose [Mass/Vol] 89 mg/dL Normal 74-106 [facility] Comment on above: Performed By: #### P OCGLUC ####[facility] Lbfbanoglr33[address] [place], [place] [address]Dr. Donna Malone PROF CHEM 8 (BAS METB)on Anion gap [Moles/Vol] 13.6 mmol/L Normal [facility] Comment on above: Performed By: #### B MP ####[facility] Bmbjnnafzu852[address] [place], [place] [address]Dr. Donna Malone Calcium [Mass/Vol] 7.8 mg/dL Critically low 8.5-10.1 [facility] Comment on above: Performed By: #### B MP ####[facility] Shjhmtxkdr974[address] [place], [place] [address]Dr. Donna Malone Chloride [Moles/Vol] 112 mmol/L Critically high 98-107 [facility] Comment on above: Performed By: #### B MP ####[facility] Cakhhbuvjd33[address] [place], [place] [address]Dr. Donna Malone CO2 [Moles/Vol] 22.5 mmol/L Normal 21.0-32.0 [facility] Comment on above: Performed By: #### B MP ####[facility] Ttbaeqzksp8[address] [place], [place] [address]Dr. Donna Malone Creatinine [Mass/Vol] 1.01 mg/dL Normal 0.70-1.30 [facility] Comment on above: Performed By: #### B MP ####[facility] Lukzkjvxgo1713[address] [place], [place] [address]Dr. Donna Malone EGFR-AF CZECH >60 Normal >=60 [facility] Comment on above: Performed By: #### B MP ####[facility] Wodflaisdo878[address] [place], [place] [address]Dr. Donna Malone EGFR-NON AF CZECH >60 Normal >=60 [facility] Comment on above: Performed By: #### B MP ####[facility] Ajhztwuowt0770 [place] [address]Dr. Rubyyvan Malone Glucose [Mass/Vol] 84 mg/dL Normal 74-106 [facility] Comment on above: Performed By: #### B MP ####[facility] Xxpjwbdpex1072 [place] [address]Dr. Donna Malone Potassium [Moles/Vol] 4.1 mmol/L Normal 3.5-5.1 [facility] Comment on above: Performed By: #### B MP ####[facility] Dowprbfveg1160[address] [place], [place] [address]Dr. Rubyyvan Faisal Sodium [Moles/Vol] 144 mmol/L Normal 136-145 [facility] Comment on above: Performed By: #### B MP ####[facility] Doypfdexqz3811[address] [place], [place] [address]Dr. Donna Malone Urea nitrogen [Mass/Vol] 21.0 mg/dL Critically high 7.0-18.0 [facility] Comment on above: Performed By: #### B MP ####[facility] Dtbshlsqnm[address] [place], [place] [address]Dr. Donna Malone Urea nitrogen/Creatinine [Mass ratio] 20.8 mg/mg Normal [facility] Comment on above: Performed By: #### B MP ####[facility] Ebdldvomiw385[address] [place], [place] [address]Dr. Donna Malone TSHon 05-14-2022 TSH 1.086 uIU/mL Normal 0.358-3.74 0 [facility] Comment on above: Performed By: #### T SH ####[facility] Thwbihsqjq222[address] [place], [place] [address]Dr. Donna Malone BLOOD GASES BTYon 05-13-2022 02 MODE ROOM AIR Normal [facility] Comment on above: Performed By: #### A BG ####[facility] Dnheolfbeh94[address] [place] [address]Dr. Donna Malone ALLENS TEST Positive Normal [facility] Comment on above: Performed By: #### A BG ####[facility] Ujkmexgpgq0569 [place] [address]Dr. Donna Malone Base excess Calc (Bld) [Moles/Vol] -2.5000 mmol/L Critically low -2.0-2.0 [facility] Comment on above: Performed By: #### A BG ####[facility] Nxnhnkllak5258 [place] [address]Dr. Donna Malone BIPAP PRESSURE Normal [facility] Comment on above: Performed By: #### A BG ####[facility] Nefcudzqge24[address] [place], [place] [address]Dr. Donna Malone CPAP Normal [facility] Comment on above: Performed By: #### A BG ####[facility] Eqeyjjxett186[address] [place], [place] [address]Dr. Donna Malone FIO2 Normal [facility] Comment on above: Performed By: #### A BG ####[facility] Jhizvectsy[address] [place], [place] [address]Dr. Donna Malone HCO3 (Bld) [Moles/Vol] 22.4 mmol/L Normal 22.0-26.0 [facility] Comment on above: Performed By: #### A BG ####[facility] Npcrvwtvxc[address] [place], [place] [address]Dr. Donna Malone LPM Normal [facility] Comment on above: Performed By: #### A BG ####[facility] Idjnzlkaei67[address] [place], [place] [address]Dr. Donna Malone MINUTE VOLUME Normal [facility] Comment on above: Performed By: #### A BG ####[facility] Rixtfnvmuw[address] [place], [place] [address]Dr. Donna Malone Oxygen (Bld) [Partial pressure] 77.6 mm[Hg] Critically low 80.0-100.0 [facility] Comment on above: Performed By: #### A BG ####[facility] Zoomigvxob83[address] [place], [place] [address]Dr. Donna Malone Oxygen saturation in Blood 95.5 % Normal 95.0-100.0 [facility] Comment on above: Performed By: #### A BG ####[facility] Rdhiqhstpc7703 [place] [address]Dr. Donna Malone PCO2 40.8 mmHg Normal 35.0-45.0 [facility] Comment on above: Performed By: #### A BG ####[facility] Gxggjqhbnn0514 [place] [address]Dr. Donna Malone PEEP [facility] Comment on above: Performed By: #### A BG ####[facility] Ffqnbuuwqy[address] [place], [place] [address]Dr. Donna Malone pH (Bld) 7.359 [pH] Normal 7.350-7.45 0 [facility] Comment on above: Performed By: #### A BG ####[facility] Nzpwajbman[address] [place], [place] [address]Dr. Donna Malone PIP [facility] Comment on above: Performed By: #### A BG ####[facility] Kwehrhigjj[address] [place], [place] [address]Dr. Donna Malone PS [facility] Comment on above: Performed By: #### A BG ####[facility] Wpfcsqmysh[address] [place], [place] [address]Dr. Donna Malone PUNCTURE SITE RR [facility] Comment on above: Performed By: #### A BG ####[facility] Oohwcgiotr[address] [place], [place] [address]Dr. Donna Malone RATE [facility] Comment on above: Performed By: #### A BG ####[facility] Ucmincpokt[address] [place], [place] [address]Dr. Donna Malone VENT MODE [facility] Comment on above: Performed By: #### A BG ####[facility] Icibjmpwbi[address] [place], [place] [address]Dr. Donna Malone [place] [facility] Comment on above: Performed By: #### A BG ####[facility] Izvmkfqhgt[address] [place], [place] [address]Dr. Donna Malone BNPon 05-13-2022 Natriuretic peptide B (Bld) [Mass/Vol] 156.0 pg/mL Normal <=900.0 [facility] Comment on above: Performed By: #### C MP, CMADM, BNP ####[facility] Kgxhyjhxgc488[address] [place] [address]Dr. Donna Faisal CARDIAC MJ ADMITon 022 CK [Catalytic activity/Vol] 119 U/L Normal 39-308 [facility] Comment on above: Performed By: #### C MP, CMADM, BNP ####[facility] Fdrdelnkog0885 [place] [address]Dr. Donna Malone CK.MB [Mass/Vol] 1.27 ng/mL Normal <=3.60 [facility] Comment on above: Performed By: #### C MP, CMADM, BNP ####[facility] Hhqtsewpba7319 [place] [address]Dr. Rubyyvan Malone HSTROP 7.9 pg/mL Normal 4.0-76.1 [facility] Comment on above: Result Comment: CUT- OFF POINTS HAVE BEEN ESTABLISHED BASED ON THE FOURTH UNIVERSAL DEFINITIONS OF MYOCARDIALINFARCTION. THE UPPER REFERENCE LIMIT (URL) OF TROPONIN, DEFINED THE 99TH PERCENTILE OFcTnI DISTRIBUTION IN A REFERENCE POPULATION, HAS BEEN CONFIRMED THE DECISION THRESHOLDFOR [place] DIAGNOSIS. Performed By: #### C MP, CMADM, BNP ####[facility] Zyivnuaxdb4655 [place] [address]Dr. Donna Malone BINDU 111 ng/mL Critically high 16-96 [facility] Comment on above: Performed By: #### C MP, CMADM, BNP ####[facility] Zrrwougjon8788 [place] [address]Dr. Donna Malone CBC AUTO DIFFon 05-13-2022 BASO # 0.1 103/ul Normal 0.0-0.1 [facility] Comment on above: Performed By: #### C BC ####[facility] Mcftxkqpcm5299 [place] [address]Dr. Donna Malone Basophils/100 WBC (Bld) 0.8 % Normal 0.2-2.0 [facility] Comment on above: Performed By: #### C BC ####[facility] Ylplscmedj6486 [place] [id number]. Donna Malone EO # 0.1 103/ul Normal 0.0-0.7 [facility] Comment on above: Performed By: #### C BC ####[facility] Vbvcsuzvrp8820 [place] [address]Dr. Donna Malone Eosinophils/100 WBC (Bld) 1.8 % Normal 0.9-7.0 [facility] Comment on above: Performed By: #### C BC ####[facility] Wumplpwbcy[address] [place], [place] [address]Dr. Donna Malone Erythrocyte distribution width (RBC) [Ratio] 14.7 % Normal 11.0-15.0 [facility] Comment on above: Performed By: #### C BC ####[facility] Qovsjnhjdo07[address] [place], [place] [address]Dr. Donna Malone Hematocrit (Bld) [Volume fraction] 38.2 % Critically low 42.0-54.0 [facility] Comment on above: Performed By: #### C BC ####[facility] Ghfkayzwaf45[address] [place], [place] [address]Dr. Donna Malone Hemoglobin (Bld) [Mass/Vol] 12.7 g/dL Critically low 14.0-18.0 [facility] Comment on above: Performed By: #### C BC ####[facility] Qhxjhowqsr6[address] [place], [place] [address]Dr. Donna Malone IG # 0.03 10e3/ul Normal 0.00-0.03 [facility] Comment on above: Performed By: #### C BC ####[facility] Fopqicifnx2949 [place] [address]Dr. Donna Malone IG % 0.4 % Normal 0.0-0.5 [facility] Comment on above: Performed By: #### C BC ####[facility] Ukburedpby34[address] [place], [place] [address]Dr. Donna Malone LYMPH # 1.6 103/ul Normal 1.2-3.8 [facility] Comment on above: Performed By: #### C BC ####[facility] Nfijeouznu5719 [place] [id number]. Donna Malone Lymphocytes/100 WBC (Bld) 22.8 % Normal 20.5-60.0 [facility] Comment on above: Performed By: #### C BC ####[facility] Dgpfeagisy5859 [place] [address]Dr. Donna Malone MANUAL DIFF REQ NO Normal [facility] Comment on above: Performed By: #### C BC ####[facility] Cuikfltiet[address] [place] [address]Dr. Donna Faisal MCH (RBC) [Entitic mass] 30.2 pg Normal 25.9-34.0 [facility] Comment on above: Performed By: #### C BC ####[facility] Kjbrfoszzi5300 [place] [address]Dr. Donna Malone MCHC (RBC) [Mass/Vol] 33.2 g/dL Normal 29.9-35.2 [facility] Comment on above: Performed By: #### C BC ####[facility] Kmvszcizyy6553 [place] [id number]. Donna Malone MCV (RBC) [Entitic vol] 91.0 fL Normal 80.0-94.0 [facility] Comment on above: Performed By: #### C BC ####[facility] Gpeoicjuat1828 [place] [address]Dr. Donna Faisal MONO # 0.7 103/ul Normal 0.3-0.8 [facility] Comment on above: Performed By: #### C BC ####[facility] Gmtaxjrreb5677 [place] [address]Dr. Donna Faisal Monocytes/100 WBC (Bld) 9.1 % Normal 1.7-12.0 [facility] Comment on above: Performed By: #### C BC ####[facility] Zhbmxfqvbv9892 [place] [address]Dr. Donna Malone NEUT # 4.7 103/ul Normal 1.4-6.5 [facility] Comment on above: Performed By: #### C BC ####[facility] Twcndwioft9856 [place], [place] [address]Pg. Donna Malone Neutrophils/100 WBC (Bld) 65.1 % Normal 43.0-75.0 [facility] Comment on above: Performed By: #### C BC ####[facility] Ulrncqmrcq2394 [place], [place] [address]Ej. Donna Malone Platelet mean volume (Bld) [Entitic vol] 11.8 fL Normal 9.5-13.5 [facility] Comment on above: Performed By: #### C BC ####[facility] Xhmcxgcwyj5509 [place], [place] [address]Dm. Donna Malone PLT 179 103/ul Normal 150-450 [facility] Comment on above: Performed By: #### C BC ####[facility] Yjsnumqcvs0027 [place], [place] [address]Xi. Donna Malone RBC 4.20 106/ul Critically low 4.70-6.10 [facility] Comment on above: Performed By: #### C BC ####[facility] Kwczzeopul4277 [place], [place] [address]Ny. Donna Malone WBC 7.2 103/ul Normal 4.0-11.0 [facility] Comment on above: Performed By: #### C BC ####[facility] Zvffkqrdfa7101 [place], [place] [address]Pr. Donna Malone CT STROKE HEAD WOon 05-13-[address] STROKE HEAD WO Normal [facility] Covid-19 PCR ([facility])on SARS-CoV-2 (COVID-19) RNA JOSÉ MIGUEL+probe Ql (Unsp spec) Not detected Normal NOT DETECTED [facility] Comment on above: Result Comment: [...] for this test is supported by the [place] of [employer] and Human Service's declaration that [...] be used). Performed By: #### C VDTBH ####[facility] Wmaegevfsy17[address] [place] [address]Dr. Donna Malone DEPAKENE/VALPROICon 05-13-20 22 DEPAKENE 16.9 ug/ml Critically low 50.0-100.0 [facility] Comment on above: Performed By: #### V ALP ####[facility] Mylcfuhynx2[address] [place], [place] [address]Dr. Donna Malone DRUG SCREEN RAPID (URINE)on 05-13-2022 AMP Negative Normal NEGATIVE [facility] Comment on above: Performed By: #### D RUGRPD ####[facility] Pctxcjjuef69[address] [place], [place] [address]Dr. Donna Malone BAR Negative Normal NEGATIVE [facility] Comment on above: Performed By: #### D RUGRPD ####[facility] Bobqzjzwzs0519 [place] [address]Dr. Donna Malone BUP Negative Normal NEGATIVE [facility] Comment on above: Performed By: #### D RUGRPD ####[facility] Dywlthedbh7710 [place] [address]Dr. Donna Malone BZO Positive Abnormal NEGATIVE [facility] Comment on above: Performed By: #### D RUGRPD ####[facility] Txkdkefmhw0338 [place] [address]Dr. Donna Malone EVONNE Positive Abnormal NEGATIVE [facility] Comment on above: Performed By: #### D RUGRPD ####[facility] Nikzommoot39[address] [place], [place] [address]Dr. Donna Malone CUT-OFFS SEE BELOW Normal [facility] Comment on above: Result Comment: [...] 300 ng/mL Performed By: #### D RUGRPD ####[facility] Ujovrndllb[address] [place], [place] [address]Dr. [facility] DRUG CUT HEADER DRUG CLASS TEST SYST EM CUT-OFF CONCENTRATIONS ARE FOLLOWS: Normal [facility] Comment on above: Performed By: #### D RUGRPD ####[facility] Vfblfrosio759[address] [place], [place] [address]Dr. Donna [facility] mAMP Negative Normal NEGATIVE [facility] Comment on above: Performed By: #### D RUGRPD ####[facility] Eewcalddij4414[address] [place], [place] [address]Dr. [facility] MTD Negative Normal NEGATIVE [facility] Comment on above: Performed By: #### D RUGRPD ####[facility] Hjiqphadqw73[address] [place], [place] [address]Dr. [facility] OPI Positive Abnormal NEGATIVE [facility] Comment on above: Performed By: #### D RUGRPD ####[facility] Zmwxuisyxg0520[address] [place], [place] [address]Dr. Rubyyvan [facility] OXY Negative Normal NEGATIVE [facility] Comment on above: Performed By: #### D RUGRPD ####[facility] Wxgoyfrcov2940[address] [place], [place] [address]Dr. [facility] PCP Negative Normal NEGATIVE [facility] Comment on above: Performed By: #### D RUGRPD ####[facility] Slcedmcvlg198[address] [place], [place] [address]Dr. [facility] PPX Negative Normal NEGATIVE [facility] Comment on above: Performed By: #### D RUGRPD ####[facility] Mtbjwnfoaz4714[address] [place], [place] [address]Dr. Donna Malone TCA Positive Abnormal NEGATIVE [facility] Comment on above: Performed By: #### D RUGRPD ####[facility] Ijreualfpk5685[address] [place], [place] [address]Dr. Donan Malone THC Negative Normal NEGATIVE [facility] Comment on above: Performed By: #### D RUGRPD ####[facility] Qhwrqlpniw549[address] [place], [place] [address]Dr. Donna Malone ER URINE PROFILEon 2 Bilirubin Ql (U) MODERATE Abnormal NEGATIVE [facility] Comment on above: Performed By: #### E RUR ####[facility] Gcjmxmsolv129[address] [place], [place] [address]Dr. Donna Malone Clarity (U) SL CLOUDY Abnormal CLEAR [facility] Comment on above: Performed By: #### E RUR ####[facility] Oafgzrxntp978[address] [place], [place] [address]Dr. Donna Malone Color (U) DK. YELLOW Normal YELLOW [facility] Comment on above: Performed By: #### E RUR ####[facility] Rhrdwwlxxq0020[address] [place], [place] [address]Dr. Donna Malone ERUAHD A micrscopic examina tion will be performed if indicated. Normal [facility] Comment on above: Performed By: #### E RUR ####[facility] Watzgvffkt7400[address] [place], [place] [address]Dr. Donna Malone Glucose Ql (U) 250 mg/dl Abnormal NEGATIVE [facility] Comment on above: Performed By: #### E RUR ####[facility] Tbbjrhblio567[address] [place], [place] [address]Dr. Donna Malone Hemoglobin Ql (U) Negative Normal NEGATIVE [facility] Comment on above: Performed By: #### E RUR ####[facility] Wqpgyylgok1118[address] [place], [place] [address]Dr. Donna Malone Ketones Ql (U) TRACE Abnormal NEGATIVE [facility] Comment on above: Performed By: #### E RUR ####[facility] Qmgcejpwom9[address] [place], [place] [address]Dr. Donna Malone LEUKOCYTES Negative Normal NEGATIVE [facility] Comment on above: Performed By: #### E RUR ####[facility] Bwohyedclj[address] [place], [place] [address]Dr. Donna Malone Nitrite Ql (U) Negative Normal NEGATIVE [facility] Comment on above: Performed By: #### E RUR ####[facility] Pskysnrqik6[address] [place], [place] [address]Dr. Donna Malone pH (U) 5.5 [pH] Normal 5-9 [facility] Comment on above: Performed By: #### E RUR ####[facility] Encfpipxdy0701[address] [place], [place] [address]Dr. Donna Malone SPEC GRAVITY >=1.030 Abnormal 1.005-<=1. 025 [facility] Comment on above: Performed By: #### E RUR ####[facility] Rzhhfvvzmu6540[address] [place], [place] [address]Dr. Donna Malone UA PROTEIN TRACE Normal NEGATIVE/ TRACE [facility] Comment on above: Performed By: #### E RUR ####[facility] Vsmlkkeoix[address] [place], [place] [address]Dr. Donna Malone UR MICRO IND NOT INDICATED Normal [facility] Comment on above: Performed By: #### E RUR ####[facility] Kwiynmqczd309[address] [place], [place] [address]Dr. Donna Faisal Urobilinogen Qn (U) 1.0 {Jermain'U}/dL Normal 0.2 - 1. 0 [facility] Comment on above: Performed By: #### E RUR ####[facility] Azzevcrwua618[address] [place], [place] [address]Dr. Donna Malone ETHANOL (BLD ALC)on 05-13-20 ALC NOTE NOTE: 80 mg/dl is th e legal limit for a blood alcohol level Normal [facility] Comment on above: Performed By: #### E TH ####[facility] Cbnpoztehj[address] [place], [place] [address]Dr. Donna Malone Ethanol [Mass/Vol] mg/dL Normal [facility] Comment on above: Performed By: #### E TH ####[facility] Efrrfvoqrs[address] [place] [address]Dr. Donna Malone LACTATE/LACTIC ACIDon 2021 Lactate [Moles/Vol] 1.7 mmol/L Normal 0.4-1.9 [facility] Comment on above: Performed By: #### L ACT ####[facility] Vmcaaikyuz7521 [place] [address]Dr. Donna Malone POINT OF CARE GLUCOSEon Glucose [Mass/Vol] 99 mg/dL Normal 74-106 [facility] Comment on above: Performed By: #### P OCGLUC ####[facility] Gqiqccaner116[address] [place], [place] [address]Dr. Donna Malone PROF 14(COMP METB)on 022 Albumin [Mass/Vol] 3.1 g/dL Critically low 3.4-5.0 [facility] Comment on above: Performed By: #### C MP, CMADM, BNP ####[facility] Msdlniojji3932 [place] [address]Dr. Donna Malone Albumin/Globulin [Mass ratio] 1.0 {ratio} Normal [facility] Comment on above: Performed By: #### C MP, CMADM, BNP ####[facility] Upmoppjajl9299 [place] [address]Dr. Donna Malone ALP [Catalytic activity/Vol] 37 U/L Critically low 46-116 [facility] Comment on above: Performed By: #### C MP, CMADM, BNP ####[facility] Zrivztnjaj2295 [place] [address]Dr. Donna Malone ALT [Catalytic activity/Vol] 14 U/L Critically low 16-63 [facility] Comment on above: Performed By: #### C MP, CMADM, BNP ####[facility] Fmuzridety3804 [place] [address]Dr. Donna Malone Anion gap [Moles/Vol] 12.3 mmol/L Normal [facility] Comment on above: Performed By: #### C MP, CMADM, BNP ####[facility] Fiuecvfsgo8053 [place] [address]Dr. Donna Malone AST [Catalytic activity/Vol] 12 U/L Critically low 15-37 [facility] Comment on above: Performed By: #### C MP, CMADM, BNP ####[facility] Lasfdzoexq2194 [place] [address]Dr. Donna Malone Bilirubin [Mass/Vol] 0.4 mg/dL Normal 0.2-1.0 [facility] Comment on above: Performed By: #### C MP, CMADM, BNP ####[facility] Psfzuhjqqt[address] [place], [place] [address]Dr. Donna Malone Calcium [Mass/Vol] 7.8 mg/dL Critically low 8.5-10.1 [facility] Comment on above: Performed By: #### C MP, CMADM, BNP ####[facility] Lehekkfeyb[address] [place], [place] [address]Dr. Donna Malone Chloride [Moles/Vol] 108 mmol/L Critically high 98-107 [facility] Comment on above: Performed By: #### C MP, CMADM, BNP ####[facility] Vocwmdfdhh14[address] [place], [place] [address]Dr. Donna Malone CO2 [Moles/Vol] 24.8 mmol/L Normal 21.0-32.0 [facility] Comment on above: Performed By: #### C MP, CMADM, BNP ####[facility] Xselvrmovj[address] [place], [place] [address]Dr. Donna Malone Creatinine [Mass/Vol] 1.83 mg/dL Critically high 0.70-1.30 [facility] Comment on above: Performed By: #### C MP, CMADM, BNP ####[facility] Nonkmorggn94[address] [place], [place] [address]Dr. Donna Malone EGFR-AF CZECH 45 mL/min/1.73m2 Critically low >=60 [facility] Comment on above: Performed By: #### C MP, CMADM, BNP ####[facility] Ltnfelcmwp4980 [place] [address]Dr. Donna Malone EGFR-NON AF CZECH 37 mL/min/1.73m2 Critically low >=60 [facility] Comment on above: Performed By: #### C MP, CMADM, BNP ####[facility] Imftvbbqef5622 [place] [address]Dr. Donna Malone Globulin (S) [Mass/Vol] 3.2 g/dL Normal [facility] Comment on above: Performed By: #### C MP, CMADM, BNP ####[facility] Ukliwpwrth7986 [place] [address]Dr. Donna Malone Glucose [Mass/Vol] 202 mg/dL Critically high 74-106 [facility] Comment on above: Performed By: #### C MP, CMADM, BNP ####[facility] Ghvecmfsjm5607 [place] [address]Dr. Donna Malone Potassium [Moles/Vol] 4.1 mmol/L Normal 3.5-5.1 [facility] Comment on above: Performed By: #### C MP, CMADM, BNP ####[facility] Oettprmsmk3364 [place] [address]Dr. Donna Malone Protein [Mass/Vol] 6.3 g/dL Critically low 6.4-8.2 [facility] Comment on above: Performed By: #### C MP, CMADM, BNP ####[facility] Tdlbjkueqz0711 [place] [address]Dr. Donna Malone Sodium [Moles/Vol] 141 mmol/L Normal 136-145 [facility] Comment on above: Performed By: #### C MP, CMADM, BNP ####[facility] Fkofyevgnd2788 [place] [address]Dr. Donna Malone Urea nitrogen [Mass/Vol] 32.0 mg/dL Critically high 7.0-18.0 [facility] Comment on above: Performed By: #### C MP, CMADM, BNP ####[facility] Esxzvgomqb8234 [place] [address]Dr. Yilan Malone Urea nitrogen/Creatinine [Mass ratio] 17.5 mg/mg Normal [facility] Comment on above: Performed By: #### C MP, CMADM, BNP ####[facility] Nfnsftciqd1775 [place] [address]Dr. Donna Malone PROTIMEon 05-13-2022 INR Coag (PPP) [Relative time] 1.04 {INR} Normal [facility] Comment on above: Performed By: #### P T, PTT ####[facility] Qgxxlurcjz4288 [place] [address]Dr. Donna Malone INR GUIDELINES SEE BELOW Normal [facility] Comment on above: Result Comment: FLORESITA RED INR: 2.0 - 3.0 CONDITIONS NOT LISTED BELOW 2.5 - 3.5 FOR PROSTHETIC HEART VALVE REPLACEMENT 2.5 - 3.5 RECURRENT THROMBOSIS Performed By: #### P T, PTT ####[facility] Xqdbyygfqb2204 [place] [address]Dr. Donna Malone PT Coag (PPP) [Time] 11.2 s Normal 9.0-11.6 [facility] Comment on above: Performed By: #### P T, PTT ####[facility] Mjcguozwwn5231 [place] [address]Dr. Donna Malone PTTon 05-13-2022 aPTT Coag (Bld) [Time] 27.5 s Normal 22.3-36.2 [facility] Comment on above: Performed By: #### P T, PTT ####[facility] Iysvtvehan5[address] [place] [address]Dr. Donna Malone XR CHEST 1 Von 05-13-2022 XR CHEST 1 V Normal [facility] Ambulatory Visit Summaryon 0 10-03-2021 Ambulatory Visit [...] physician if questions or concerns acetaminophen acetaminophen-hydrocodone (Orient 5/325 Tab) amlodipine (amLODIPine 5 mg Tab) [...] [facility] [address] [place] [address]- Medications What How Much When Instructions New ciprofloxacin (Cipro 500 mg Tab) 1 Tablets By Mouth Every day Take 1 tablet the day before the procedure and 1 tablet after the procedure Pickup at [facility] Unchanged acetaminophen 650 Milligram Every 4 hours Contact prescribing physician if questions or concerns Unchanged acetaminophen-hydrocodone (Orient 5/ 325 Tab) 1 Tablets By Mouth [...] physician if questions or concerns Pharmacy Information [facility]: [address] [place], [place] [id number] [phone] (more content not included)... Normal [facility] Ambulatory Visit Summary TAYLOR MCCLELLAN SR [...] physician if questions or concerns acetaminophen acetaminophen-hydrocodone (Orient 5/325 Tab) amlodipine (amLODIPine 5 mg Tab) [...] [facility] [address], [place] [address]- Medications What How Much When Instructions New ciprofloxacin (Cipro 500 mg Tab) 1 Tablets By Mouth Every day Take 1 tablet the day before the procedure and 1 tablet after the procedure Pickup at [facility] Unchanged acetaminophen 650 Milligram Every 4 hours Contact prescribing physician if questions or concerns Unchanged acetaminophen-hydrocodone (Orient 5/ 325 Tab) 1 Tablets By Mouth [...] physician if questions or concerns Pharmacy Information [facility]: [address] [place], [place] [id number] [phone] (more content not included)... Normal [facility] Jail Recordson 10-03 Jail Records [phone] [id number] Normal [facility] Patient Educationon 10-03-19 Patient Education Urology [...] Follow these instructions at home: ? Take uchl-hvz-iaxgcfj and prescription medicines only as told by [...] You d (more content not included)... Normal [facility] Urology Office/Clinic Noteon 10-03-2021 Urology Office/Clinic Note Chief Complaint This is a 66 year old male in the [place] ER on 09/14/21. This patient has a [...] UroLift 10/30/18. Pt. was seen in the [facility] ER on 09/14/21 due to generalized [...] recently. Family was in the hospital at [place] where he had severe weakness. A Galindo [...] last seen in 2018. Patient was in [facility] 09/14/21 due to weakness and acute kidney [...] dribbling) moderate, (more content not included)... Normal [facility] Comment on above: Result Comment: Elec tronically Signed By: Lisandro Orourke Jr., MD\.br\Date and Time Signed: 10/03/21 12:37 EST\.br\Electronically Co-Signed By: Lisandra Arias\.br\Date and Time Co-Signed: 10/03/21 12:32 EST APTTon 10-13-2019 aPTT Coag (Bld) [Time] 34.9 s Normal 25.0-35.0 Th e [facility] Comment on above: Result Comment: [...] FOR THIS PURPOSE. Performed By: #### 5 [id number], [id number] #### [facility] [address] [place] [address], [facility] CREATININE BLOODon 0 Creatinine [Mass/Vol] 1.07 mg/dL Normal 0.70-1.30 [facility] Comment on above: Performed By: #### 2 [id number] #### [facility] [address] [facility] [place] [address], [facility] Creatinine [Mass/Vol] mg/dL Normal >60 [facility] Comment on above: Performed By: #### 2 [id number] #### [facility] [address] [facility] [place] [address], [facility] CT LUMBAR SPINE W CONTRASTon 10-13-2019 CT LUMBAR SPINE W CONTRAST [facility] Department of Radiology [address] [place] [address] [id number] Patient Name: TAYLOR MCCLELLAN : 1955 Sex: M Age: Race: White Pt. Location: Patient Status: O Ordered Date: 09/11/2019 2:50:00 PM Completed Date: 10/13/2019 11:37 AM Requesting Provider: JASEN HOWARD Attending Provider: JASEN HOWARD Report Copy To: LUI BRYSON Signs & Symptoms: M51.36 Other intervertebral disc degeneration, lumbar region I10 History: [place] Saturday appointment call [facility] [phone] [facility] auth# [id number] 09/16/19-10/15/19 cpt code 75048 *mla Comments: Exam: CT LUMBAR SPINE W [...] achievable Electronically signed: Fredy Salmeron. Transcribed by: [email or web address], User Resident: Electronically Signed by: FREDY SALMERON @ 10/13/2019 02:08 PM Normal [facility] LUMBAR MYELOGRAMon 0 LUMBAR MYELOGRAM [facility] Department of Radiology [address] [place] [phone] Patient Name: TAYLOR MCCLELLAN : 1955 Sex: M Age: Race: White Pt. Location: Patient Status: O Ordered Date: 09/11/2019 2:50:00 PM Completed Date: 10/13/2019 10:49 AM Requesting Provider: JASEN HOWARD Attending Provider: JASEN HOWARD Report Copy To: LUI BRYSON Signs & Symptoms: M51.36 Other intervertebral disc degeneration, lumbar region I10 History: [place] Saturday appointment Patient will need labs, [...] risks are acceptable. Consent was obtained. Timeout: [place] protocol timeout verification performed. PROCEDURE: Estimated blood [...] reports Electronically signed: Fredy Salmeron. Transcribed by: [email or web address], User Resident: KRISTINE BALLARD Electronically Signed by: FREDY SALMERON @ 10/13/2019 06:58 PM I personally read this/these film(s) with this resident Normal [facility] Comment on above: Order Comment: , , = ========= , Ordering Provider - JASEN HOWARD MD , PROTHROMBIN TIMEon 0 INR Coag (PPP) [Relative time] 1.05 {INR} Normal 0.91-1.16 [facility] Comment on above: Result Comment: [...] CHEST 1995;[id number]. Performed By: #### 5 [id number], [id number] #### [facility] [address] [facility]. [address] PT Coag (PPP) [Time] 13.7 s Normal 12.3-14.8 [facility] Comment on above: Result Comment: ALL RESULTS MUST BE INTERPRETED WITH RESPECT TO BLOOD DRAWING ARTIFACT OR DILUTION ERROR OF ANTICOAGULANT AT THE TIME OF SAMPLING. Performed By: #### 5 [id number], [id number] #### [facility] [address] [facility]. [address] Laboratory Studieson 019 HBV surface Ab Ql (S) Non reactive [facility] Work Phone: Comment on above: Non Reactive: Incons istent with immunity, less than 10 mIU/mL Reactive: Consistent with immunity, greater than 9.9 mIU/mL HBV surface Ag IA Ql Negative [facility] Work Phone: Comment on above: Performed at: [address] [id number] Returns Supervisor: Arnold Cabral PhD, Phone: [phone] HCV Ab Signal/Cutoff IA RelACnc 0.1 s/co ratio [facility] Work Phone: Hepatitis C Antibody Comment See comment [facility] Work Phone: Comment on above: Non reactive HCV ant ibody screen is consistent with no HCV infection, unless recent infection is suspected or other evidence exists to indicate HCV infection. HIV 1+2 Ab IA Ql Nonreactive [facility] Work Phone: Laboratory Studieson 018 Glucose mass conc Glu2: cleaned meter [facility] Work Phone: Glucose mass conc 121 mg/dL [facility] Work Phone: Comment on above: Random Glucose Refer ence Range is dependent on time and content of last meal. Glucose of more than 200 mg/dL in a nonstressed, ambulatory subject supports the diagnosis of Diabetes Mellitus. Calcium mass conc 8.7 mg/dL 8.2-10.2 [facility] Work Phone: Chloride molar conc 102 mmol/L 95-114 [facility] Work Phone: CO2 molar conc 27.5 mmol/L 22.0-30.0 [facility] Work Phone: Creatinine mass conc 1.08 mg/dL 0.64-1.27 [facility] Work Phone: GFR/1.73 sq M predicted among blacks MDRD vol rate/area (S/P/Bld) mL/min/{1.73_m2} [facility] Work Phone: Comment on above: GFR estimated refere nce range: According to KDOQI guidelines, <60 ml/min/1.73m2 is sufficient to diagnose a patient with chronic kidney disease. GFR/1.73 sq M predicted among non-blacks MDRD vol rate/area (S/P/Bld) mL/min/{1.73_m2} [facility] Work Phone: Glucose mass conc 86 mg/dL 70-100 [facility] Work Phone: Comment on above: ADA recommended refe rence range Random Glucose Reference Range is dependent on time and content of last meal. Glucose of more than 200 mg/dL in a nonstressed, ambulatory subject supports the diagnosis of Diabetes Mellitus. Pharmacy Creatinine Clearance (Chem [phone] [facility] Work Phone: Potassium molar conc 3.5 mmol/L 3.5-5.1 [facility] Work Phone: Sodium molar conc 139 mmol/L 136-146 [facility] Work Phone: Urea nitrogen mass conc 10 mg/dL 9-23 [facility] Work Phone: Laboratory Studieson 018 Basophils #/vol (Bld) 0.1 10*3/uL 0.0-0.2 [facility] Work Phone: Basophils/100 WBC (Bld) 1.0 % [facility] Work Phone: Eosinophils #/vol (Bld) 0.2 10*3/uL 0.0-0.45 [facility] Work Phone: Eosinophils/100 WBC (Bld) 2.8 % [facility] Work Phone: Erythrocyte distribution width Ratio (RBC) 13.9 % 12.0-14.8 [facility] Work Phone: Hematocrit Volume Fraction (Bld) 36.3 % Low 38.8-50.0 [facility] Work Phone: Hemoglobin mass conc (Bld) 12.5 g/dL Low 13.0-17.0 [facility] Work Phone: Lymphocytes #/vol (Bld) 1.6 10*3/uL 1.00-4.8 [facility] Work Phone: Lymphocytes/100 WBC (Bld) 23.7 % [facility] Work Phone: MCH Entitic mass (RBC) 28.9 pg 27.5-35.2 [facility] Work Phone: MCHC mass conc (RBC) 34.3 g/dL 32.5-35.6 [facility] Work Phone: MCV Entitic volume (RBC) 84.4 fL 83.5-101 [facility] Work Phone: Monocytes #/vol (Bld) 0.4 10*3/uL 0.0-0.8 [facility] Work Phone: Monocytes/100 WBC (Bld) 6.7 % [facility] Work Phone: Neutrophils #/vol (Bld) 4.4 10*3/uL 1.8-7.7 [facility] Work Phone: Neutrophils/100 WBC (Bld) 65.8 % [facility] Work Phone: Platelet mean volume Entitic volume (Bld) 10.3 fL High 6.6-10.1 [facility] Work Phone: Platelets #/vol (Bld) 199 10*3/uL 150-450 [facility] Work Phone: RBC #/vol (Bld) 4.31 10*6/uL 3.90-5.60 [facility] Work Phone: WBC #/vol (Bld) 6.6 10*3/uL 4.1-10.5 [facility] Work Phone: Laboratory Studieson 018 Appearance Nom (U) Slightly cloudy Abnormal F [facility] Work Phone: Bacteria Auto Ql (U) None seen [facility] Work Phone: Bilirubin Ql (U) Negative [facility] Work Phone: Color Nom (U) Yellow [facility] Work Phone: Creatinine mass conc (U) 143.4 mg/dL [facility] Work Phone: Comment on above: No reference range e stablished Epithelial cells Auto #/area (Urine sed) Rare /HPF [facility] Work Phone: Glucose Automated test strip mass conc (U) Normal mg/dL [facility] Work Phone: Hemoglobin Automated test strip Ql (U) 1+ High [facility] Work Phone: Ketones mass conc (U) 1+ High [facility] Work Phone: Leukocyte esterase Automated test strip Ql (U) Negative [facility] Work Phone: Nitrite Automated test strip Ql (U) Negative [facility] Work Phone: pH (U) 5.5 [pH] 5.0-9.0 [facility] Work Phone: pH (U) [pH] 1.001-1.03 0 [facility] Work Phone: Protein mass conc (U) Negative [facility] Work Phone: RBC Auto #/area (Urine sed) 1-2 /HPF [facility] Work Phone: Sodium molar conc (U) 144.0 mmol/L [facility] Work Phone: Comment on above: No reference range e stablished Urate crystals LM.HPF #/area (Urine sed) 3 /[HPF] [facility] Work Phone: Urobilinogen mass conc (U) Normal mg/dL [facility] Work Phone: WBC Auto #/area (Urine sed) None seen /HPF [facility] Work Phone: Albumin mass conc 2.7 g/dL Low 3.2-5.5 [facility] Work Phone: Albumin/Globulin mass ratio 0.8 {ratio} [facility] Work Phone: ALP enzyme act/vol 39 U/L 32-92 [facility] Work Phone: ALT No additional P-5'-P enzyme act/vol 14 U/L 10-60 [facility] Work Phone: AST enzyme act/vol 25 U/L 10-42 [facility] Work Phone: Bilirubin mass conc 0.6 mg/dL 0.3-1.2 [facility] Work Phone: Globulin mass conc (S) 3.6 g/dL [facility] Work Phone: Protein mass conc 6.3 g/dL 6.1-7.9 [facility] Work Phone: Laboratory Studieson 018 T3 free mass conc 3.28 pg/mL 2.50-3.90 [facility] Work Phone: T4 free mass conc 0.95 ng/dL 0.61-1.12 [facility] Work Phone: Amphetamines Ql (U) Negative [facility] Work Phone: Barbiturates Ql (U) Negative [facility] Work Phone: Benzodiazepines Ql (U) Positive High [facility] Work Phone: Cannabinoids Screen Ql (U) Negative [facility] Work Phone: Comment on above: These are unconfirme d results and should not be used for legal purposes. Drug Cut-Off Concentration: AMPH 1000 ng/mL EWA 200 ng/mL JOHN 200 ng/mL COCM 300 ng/mL OP 300 ng/mL PCP 25 ng/mL THC 20 ng/mL Cocaine Ql (U) Negative [facility] Work Phone: Opiates Ql (U) Positive High [facility] Work Phone: Phencyclidine Ql (U) Negative [facility] Work Phone: Ammonia mass conc (Unsp spec) 20 umol/L 11-35 [facility] Work Phone: Bilirubin.direct mass conc 0.2 mg/dL 0.0-0.4 [facility] Work Phone: Bilirubin.indirect mass conc 0.8 mg/dL [facility] Work Phone: Cobalamin (Vitamin B12) mass conc 365 pg/mL 180-914 [facility] Work Phone: Folate mass conc 12.4 ng/mL [facility] Work Phone: Comment on above: Folate reference ran ge: >5.9 ng/ml The WHO technical consultation on folate and vitamin b12 deficiencies has determined that folate concentrations less than 4 ng/ml are considered deficient. Magnesium molar conc (Unsp spec) 1.7 mg/dL 1.6-2.6 [facility] Work Phone: Thyrotropin Qn 0.20 uIU/mL Low 0.45-5.33 [facility] Work Phone: Comment on above: Revised TSH Assay This assay is standardized to the World Health Organization International Standard for human TSH. Please note Reference Intervals have changed. Laboratory Studieson 018 Casts LM Nom (Urine sed) N/A [facility] Work Phone: Epithelial cells.renal LM.HPF #/area (Urine sed) Rare /HPF [facility] Work Phone: Hyaline casts Auto #/vol (U) 20-49 /LPF High [facility] Work Phone: Lactate molar conc (U) 0.9 mmol/L [facility] Work Phone: [phone] CK enzyme act/vol 107 U/L 22-269 [facility] Work Phone: Phosphate mass conc 5.0 mg/dL High 2.5-4.6 [facility] Work Phone: Laboratory Studieson 04-05- 017 Glucose mass conc 122 mg/dL [facility] Work Phone: Comment on above: RANDOM GLUCOSE REFER ENCE RANGE IS DEPENDENT ON TIME AND CONTENT OF LAST MEAL.GLUCOSE OF MORE THAN 200MG/DL IN A NONSTRESSED,AMBULATORY SUBJECT SUPPORTS THE DIAGNOSIS OF DIABETES MELLITUS. Laboratory Studieson 017 Basophils #/vol (Bld) 0.1 10*3/uL 0.0-0.2 [facility] Work Phone: Basophils/100 WBC (Bld) 0.9 % [facility] Work Phone: Calcium mass conc 8.6 mg/dL 8.2-10.2 [facility] Work Phone: Chloride molar conc 109 mmol/L 95-114 [facility] Work Phone: CK enzyme act/vol 355 U/L High 22-269 [facility] Work Phone: CO2 molar conc 19.5 mmol/L Low 22.0-30.0 [facility] Work Phone: Creatinine mass conc 0.99 mg/dL 0.64-1.27 [facility] Work Phone: Eosinophils #/vol (Bld) 0.20 10*3/uL 0.0-0.45 [facility] Work Phone: Eosinophils/100 WBC (Bld) 3.3 % [facility] Work Phone: Erythrocyte distribution width Ratio (RBC) 13.8 % 12.0-14.8 [facility] Work Phone: Estimated GFR (Non- > 60 [facility] Work Phone: GFR/1.73 sq M.predicted MDRD (S/P/Bld) [Vol rate/Area] mL/min/{1.73_m2} [facility] Comment on above: GFR estimated refere nce range: According to KDOQI guidelines, <60 ml/min/1.73m2 is sufficient to diagnose a patient with chronic kidney disease. GFR/1.73 sq M.predicted MDRD vol rate/area mL/min/{1.73_m2} [facility] Work Phone: Comment on above: GFR estimated refere nce range: According to KDOQI guidelines, <60 ml/min/1.73m2 is sufficient to diagnose a patient with chronic kidney disease. Glucose mass conc 94 mg/dL 70-100 [facility] Work Phone: Comment on above: ADA RECOMMENDED REFE RENCE RANGE Hematocrit Volume Fraction (Bld) 41.5 % 38.8-50.0 [facility] Work Phone: Hemoglobin mass conc (Bld) 14.1 g/dL 13.0-17.0 [facility] Work Phone: Lymphocytes #/vol (Bld) 2.6 10*3/uL 1.00-4.8 [facility] Work Phone: Lymphocytes/100 WBC (Bld) 40.3 % [facility] Work Phone: MCH Entitic mass (RBC) 30.4 pg 27.5-35.2 [facility] Work Phone: MCHC mass conc (RBC) 34.1 g/dL 32.5-35.6 [facility] Work Phone: MCV Entitic volume (RBC) 89.2 fL 83.5-101 [facility] Work Phone: Monocytes #/vol (Bld) 0.4 10*3/uL 0.0-0.8 [facility] Work Phone: Monocytes/100 WBC (Bld) 6.4 % [facility] Work Phone: Neutrophils #/vol (Bld) 3.1 10*3/uL 1.8-7.7 [facility] Work Phone: Neutrophils (%) (Auto) 49.1 % [facility] Work Phone: Neutrophils/100 WBC (Bld) 49.1 % [facility] Platelet mean volume Entitic volume (Bld) 10.7 fL High 6.6-10.1 [facility] Work Phone: Platelets #/vol (Bld) 160 10*3/uL 150-450 [facility] Work Phone: Potassium molar conc 3.4 mmol/L Low 3.5-5.1 [facility] Work Phone: RBC #/vol (Bld) 4.65 10*6/uL 3.90-5.60 [facility] Work Phone: Sodium molar conc 138 mmol/L 136-146 [facility] Work Phone: Urea nitrogen mass conc 7 mg/dL Low 9-23 [facility] Work Phone: WBC #/vol (Bld) 6.4 10*3/uL 4.1-10.5 [facility] Work Phone: Laboratory Studieson 017 Platelet Aggregation (ADP) 57.8 % 0-100 [facility] Work Phone: Comment on above: NO REFERENCE RANGE I S ESTABLISHED OR APPLICABLE Platelet Inhibition ADP 42.2 % 0-100 [facility] Work Phone: Comment on above: NO REFERENCE RANGE I S ESTABLISHED OR APPLICABLE TEG Max Amplitude (Citrated) 69.9 mm 50-70 [facility] Work Phone: TEG Max Amplitude (Rapid) 29.9 0-90 [facility] Work Phone: Comment on above: TEG MA A HAS NO REFE RENCE RANGE Thrombelastograph (TEG) Net G ADP 53.0 MM 0-90 [facility] Work Phone: Comment on above: TEG MA ADP HAS NO RE FERENCE RANGE Albumin mass conc 3.1 g/dL Low 3.2-5.5 [facility] Work Phone: Albumin/Globulin mass ratio 1.0 {ratio} [facility] Work Phone: ALP enzyme act/vol 44 U/L 32-92 [facility] Work Phone: ALT enzyme act/vol 18 U/L 10-60 [facility] Work Phone: AST enzyme act/vol 27 U/L 10-42 [facility] Work Phone: Bilirubin Ql (U) 0.6 mg/dL 0.3-1.2 [facility] Work Phone: Bilirubin.direct mass conc 0.1 mg/dL 0.0-0.4 [facility] Work Phone: Bilirubin.indirect mass conc (Body fld) 0.5 mg/dL [facility] Work Phone: Cholesterol in HDL mass conc 26 mg/dL Low -71 [facility] Work Phone: Comment on above: HDL CHOL ATP-III CLA SSIFICATION Cardiovascular Risk HDL > or equal to 60 mg/dL Low HDL < 40 mg/dL High Cholesterol mass conc 150 mg/dL 140-200 [facility] Work Phone: Comment on above: CHOL less than 200 m g/dL Low risk CHOL 201-239 mg/dL Borderline risk CHOL 240 mg/dL and greater High risk Cholesterol mass conc 30 mg/dL [facility] Work Phone: Cholesterol.total/Chol esterol in HDL mass ratio 5.8 {ratio} [facility] Work Phone: Globulin mass conc (S) 3.2 g/dL [facility] Work Phone: LDL Cholesterol, Calculated 93 mg/dL 0-100 [facility] Work Phone: Comment on above: LDL ATP III CLASSIFI CATION LDL less than 100 mg/dL Optimal LDL 100-129 mg/dL Near or above optimal LDL 130-159 mg/dL Borderline high LDL 160-189 mg/dL High LDL greater than 189 mg/dL Very high Protein mass conc 6.3 g/dL 6.1-7.9 [facility] Work Phone: Thyrotropin Qn 1.12 uIU/mL 0.45-5.33 [facility] Work Phone: Comment on above: Revised TSH Assay This assay is standardized to the World Health Organization International Standard for human TSH. Please note Reference Intervals have changed. Triglyceride mass conc 153 mg/dL High 35-149 [facility] Work Phone: Comment on above: TRIG ATP III CLASSIF ICATION TRIG less than 150 mg/dL Normal TRIG 150-199 mg/dL Borderline high TRIG 200-500 mg/dL High TRIG greater than 500 mg/dL Very high Standard traceable to the Center for Disease Conrtrol and Prevention (CDC) test method. Laboratory Studieson 017 Glucose mass conc Glu2: cleaned meter [facility] Work Phone: Ammonia mass conc (P) 19 umol/L 11-35 [facility] Work Phone: Cobalamin (Vitamin B12) mass conc 202 pg/mL 180-914 [facility] Work Phone: Folate 10.7 ng/mL [facility] Work Phone: Comment on above: FOLATE REFERENCE RAN GE: >5.9 ng/mL The WHO Technical Consultation on folate and vitamin B12 deficiencies has determined that folate concentrations less than 4 ng/mL are considered deficient. Amphetamines Ql (U) Negative [facility] Work Phone: Appearance Nom (U) Clear [facility] Work Phone: Bacteria LM.HPF #/area (Urine sed) None seen [facility] Work Phone: Benzodiazepines Ql (U) Positive High [facility] Work Phone: Bilirubin Ql (U) Negative [facility] Work Phone: Cocaine Ql (U) Negative [facility] Work Phone: Color Nom (U) Yellow [facility] Work Phone: Epithelial cells.squamous LM.HPF #/area (Urine sed) 5-9 /hpf High [facility] Work Phone: Glucose mass conc (U) 250 mg/dL High [facility] Work Phone: Hyaline casts LM Ql (Urine sed) 0-8 /lpf [facility] Work Phone: Ketones Ql (U) Trace High [facility] Work Phone: Leukocyte esterase Test strip Ql (U) Negative [facility] Work Phone: Nitrite Ql (U) Negative [facility] Work Phone: Opiates Ql (U) Negative [facility] Work Phone: pH (U) 5.0 [pH] 5.0-9.0 [facility] Work Phone: Phencyclidine Ql (U) Negative [facility] Work Phone: Protein Ql (U) Negative [facility] Work Phone: RBC #/vol (U) 50-100 /hpf [facility] Work Phone: Specific gravity Relative Density (U) 1.039 High 1.001-1.03 0 [facility] Work Phone: Urine Barbiturates Screen Negative [facility] Work Phone: Urine Collection Type Type [facility] Work Phone: Comment on above: CATHETERIZED Urine Drug Screen Comment See comment [facility] Work Phone: Comment on above: THESE ARE UNCONFIRME D RESULTS AND SHOULD NOT BE USED FOR LEGAL PURPOSES. DRUG CUT-OFF CONCENTRATION: AMPH 1000 ng/mL EWA 200 ng/mL JOHN 200 ng/mL COCM 300 ng/mL OP 300 ng/mL PCP 25 ng/mL THC 20 ng/mL Urine Marijuana (THC) Screen Negative [facility] Work Phone: Urine Occult Blood 3+ High [facility] Work Phone: Urine Transitional Epithelial Cells 3-4 /hpf [facility] Work Phone: Urobilinogen Qn (U) Normal mg/dL [facility] Work Phone: WBC #/vol (U) 0-1 /hpf [facility] Work Phone: Bedside Ionized Calcium (Deepti) 1.22 mmol/L 1.12-1.32 [facility] Work Phone: Bedside Total CO2 23 mmol/L 23-29 [facility] Work Phone: Chloride molar conc 110.0 mmol/L High 98-109 [facility] Work Phone: Creatinine mass conc 1.2 mg/dL 0.6-1.3 [facility] Work Phone: Comment on above: ER/ESD PHYSICIAN IS NOTIFIED/SHOWN ALL ISTAT RESULTS. CRITICAL VALUES MAY BE CONFIRMED BY LABORATORY TESTING IF DEEMED NESCESSARY BY ER ATTENDING DOCTOR Glucose mass conc 135 mg/dL High 70-105 [facility] Work Phone: Hematocrit Volume Fraction (Bld) 48.0 % 38.0-51.0 [facility] Work Phone: Hemoglobin mass conc (Bld) 16.3 g/dL 12.0-17.0 [facility] Work Phone: Potassium molar conc 4.7 mmol/L 3.5-4.9 [facility] Work Phone: Sodium molar conc 144 mmol/L 138-146 [facility] Work Phone: Urea nitrogen mass conc 15 mg/dL 8-26 [facility] Work Phone: Amylase enzyme act/vol 39 U/L 28-100 [facility] Work Phone: CK.MB mass conc 9.5 ng/mL High 0.6-6.3 [facility] Work Phone: Creatine Kinase MB Relative Index 1.5 0.00-2.50 [facility] Work Phone: Ethyl Alcohol Level < 5 mg/dL [facility] Work Phone: Glucose mass conc 140 mg/dL High 70-100 [facility] Work Phone: Comment on above: RANDOM GLUCOSE REFER ENCE RANGE IS DEPENDENT ON TIME AND CONTENT OF LAST MEAL.GLUCOSE OF MORE THAN 200MG/DL IN A NONSTRESSED,AMBULATORY SUBJECT SUPPORTS THE DIAGNOSIS OF DIABETES MELLITUS. Lipase enzyme act/vol 22.0 U/L 22-51 [facility] Work Phone: Percent Ethyl Alcohol < 0.005 % [facility] Work Phone: Troponin I.cardiac mass conc ng/mL 0-0.02 [facility] Work Phone: Comment on above: [place] Cut off value > or equal to 0.03 ng/mL in conjunction with clinical conditions of myocardial infarction. ([email or web address]/guidelines) Glucose mass conc 134 mg/dL [facility] Work Phone: Hemoglobin A1c/Hemoglobin.total mass fraction (Bld) 6.3 % High 4.3-5.6 [facility] Work Phone: Comment on above: Increased risk for d iabetes: 5.7 - 6.4 Diabetes: >6.4 Glycemic control for adults with diabetes: <7.0 Vital Signs Date Time Vital Sign Value Performing Clinician Facility 11-05-2022 14:30-0500 Diastolic blood pressure 72 mm[Hg] [address] Other [facility] [employer] Other 11-05-2022 14:30-0500 SaO2% (BldA) [Mass fraction] 97 % [address] Other [facility] [facility] [employer] Other 11-05-2022 14:30-0500 Systolic blood pressure 118 mm[Hg] [address] Other [employer] [facility] [employer] Other 10-18-2022 14:00-0500 Body weight 96.[address] Other [email or web address] Other 10-18-2022 14:00-0500 Diastolic blood pressure 64 mm[Hg] [address] Other [email or web address] Other 10-18-2022 14:00-0500 SaO2% (BldA) [Mass fraction] 98 % [address] Other [email or web address] Other 10-18-2022 14:00-0500 Systolic blood pressure 120 mm[Hg] [address] Other [facility] Other 07-20-2022 16:00-0500 Body temperature 97.4 [degF] MD Genesis Reynolds Work Phone: [facility] 07-20-2022 16:00-0500 Diastolic blood pressure 72 mm[Hg] MD Genesis Reynolds Work Phone: [facility] 07-20-2022 16:00-0500 Heart rate 61 /min MD Genesis Reynolds Work Phone: [facility] 07-20-2022 16:00-0500 Respiratory rate 16 /min MD Genesis Reynolds Work Phone: [facility] 07-20-2022 16:00-0500 SaO2% (BldA) [Mass fraction] 98 % MD Genesis Reynolds Work Phone: [facility] 07-20-2022 16:00-0500 Systolic blood pressure 159 mm[Hg] MD Genesis Reynolds Work Phone: [facility] 07-20-2022 06:00-0500 Body weight 95.3 kg MD Genesis Reynolds Work Phone: [facility] 07-18-2022 11:22-0500 Body height 177.8 cm MD Genesis Reynolds Work Phone: [facility] 07-17-2022 22:14-0500 Body height 177.8 cm MD Genesis Reynolds Work Phone: [facility] 07-17-2022 22:14-0500 Body temperature 97.5 [degF] MD Genesis Reynolds Work Phone: [facility] 07-17-2022 22:14-0500 Body weight 95.9 kg MD Genesis Reynolds Work Phone: [facility] 07-17-2022 22:14-0500 Diastolic blood pressure 87 mm[Hg] MD Genesis Reynolds Work Phone: [facility] 07-17-2022 22:14-0500 Heart rate 74 /min MD Genesis Reynolds Work Phone: [facility] 07-17-2022 22:14-0500 Respiratory rate 16 /min MD Genesis Reynolds Work Phone: [facility] 07-17-2022 22:14-0500 SaO2% (BldA) [Mass fraction] 99 % MD Genesis Reynolds Work Phone: [facility] 07-17-2022 22:14-0500 Systolic blood pressure 180 mm[Hg] MD Genesis Reynolds Work Phone: [facility] 02-13-2018 14:12-0400 Body Temperature 98 [degF] Bro Sanford [facility] 02-13-2018 14:12-0400 BP Diastolic 74 mm[Hg] [facility] 02-13-2018 14:12-0400 BP Systolic 113 mm[Hg] [facility] 02-13-2018 14:12-0400 Pulse [facility]ximetry 95 % [facility] 02-13-2018 14:12-0400 Respiratory Rate 18 /min Bro Aj [facility] 02-11-2018 22:00-0400 Pulse (Heart Rate) 73 /min Bro Aj [facility]: Highlighted row BMI (Body Mass Index) Bro Sanford [facility] NEGATED: Highlighted row BMI (Body Mass Index) [facility] NEGATED: Highlighted row Height Bro Sanford [facility] NEGATED: Highlighted row Height Bro Sanford [facility] Encounters Encounter Date Encounter Type Care Provider Facility Start: 03-26-2024 End: 03-26-2024 ambulatory [facility] Start: 02-25-2024 End: 02-25-2024 ambulatory FESTUS [facility] Start: 02-17-2024 End: 02-17-2024 ambulatory [facility] Start: 02-17-2024 End: 02-17-2024 Encounter for other preprocedural examination [facility] Start: 11-10-2023 End: 11-11-2023 ambulatory SUSAN SANDRA [facility] Start: 11-10-2023 End: 11-10-2023 Subsequent hospital visit by physician Bro Sanford MD Work Phone: [facility] Start: 04-26-2023 End: 04-27-2023 [facility] Start: 04-25-2023 End: 04-26-2023 Emergency department patient visit BRO SANFORD [facility] Start: 04-19-2023 ambulatory Danilo Hayes acility:[facility] Start: 01-17-2023 End: 01-17-[address] GENESIS REYNOLDS . Facility:[facility] Start: 12-06-2022 End: 12-06-[address] Other [email or web address] Other Start: 12-06-[address] [facility] Start: 11-15-2022 End: 11-17-2022 Evaluation and management of inpatient DR GENESIS REYNOLDS . Facility:[facility] Start: 11-13-2022 End: 11-13-[address] Other [email or web address] Other Start: 11-13-[address] [facility] Start: 11-05-2022 End: 11-05-[address] Other [employer] Other Start: 11-05-2022 Office outpatient vi sit [address] [facility] Start: 11-01-2022 End: 11-01-2022 ambulatory Genesis Reynolds Facility:[facility] Start: 11-01-2022 End: 11-01-2022 ambulatory MD Genesis Reynolds Work Phone: [facility] Work Phone: Start: 11-01-2022 End: 11-01-2022 Patient encounter procedure MD Genesis Reynolds Work Phone: [facility] Work Phone: Start: 10-26-2022 End: 10-27-[address] GENESIS REYNOLDS . Facility:[facility] Start: 10-25-2022 (PROC) PROCEDURE Benson Oliveros [facility] Start: 10-25-2022 End: 10-26-[address] GENESIS REYNOLDS . [email or web address] Other Start: 10-18-2022 End: 10-18-[address] Other [employer] Other Start: 10-18-2022 Office outpatient ne w [...] of inpatient MD Genesis Reynolds Work Phone: [facility] [place] [facility] Start: 07-17-2022 End: 07-20-2022 observation encounter MD Genesis Reynolds Work Phone: [facility] Work Phone: Start: 07-15-2022 End: 07-16-[address] GENESIS REYNOLDS . Facility:[facility] Start: 06-21-2022 End: 06-22-[address] GENESIS REYNOLDS . Facility:[facility] Start: 05-13-2022 End: 05-16-2022 Evaluation and management of inpatient DR GENESIS REYNOLDS . Facility:[facility] Start: 05-07-[address] GENESIS REYNOLDS . Facili ty:[facility] Start: 12-17-2019 Preoperative state MD Genesis Reynolds Work Phone: [facility] Start: 12-24-2018 End: 12-24-2018 Patient encounter procedure Bro Sanford [facility] Start: 02-08-2018 End: 02-13-2018 Evaluation and management of inpatient Bro Safnord [facility] Start: 01-12-2018 End: 01-17-2018 [facility] Start: 04-02-2017 End: 04-05-2017 [facility] management [facility] Start: 06-09-2006 End: 07-09-2006 [facility]charged [facility] Start: 04-09-2006 End: 05-09-2006 Discharged Recurring Bro Sanford [facility] Start: 03-09-2006 End: 04-08-2006 Discharged [facility] Start: 02-22-2006 End: 03-08-2006 Discharged Recurring Bro Sanford [facility] Start: 02-10-2006 End: 02-14-2006 Evaluation and management of inpatient [facility] Start: 05-10-2000 End: 06-08-2000 Discharged [facility] Start: 04-09-2000 End: 05-09-2000 Discharged [facility] Start: 03-09-2000 End: 04-08-2000 Discharged Recurring Bro Sanford [facility] Start: 02-08-2000 End: 03-08-2000 Discharged Recurring Bro Sanford [facility] Start: 01-08-2000 End: 02-07-2000 Discharged Recurring Bro Sanford [facility] Start: 12-09-1999 End: 02-07-2000 Discharged Recurring Bro Sanford [facility] Start: 11-08-1999 End: 12-08-1999 [facility] Start: 10-10-1999 End: 11-07-1999 Discharged Recurring Bro Sanford [facility] Start: 09-09-1999 End: 10-09-1999 [facility] Start: 08-09-1999 End: 10-09-1999 Discharged [facility] Start: 07-10-1999 End: 08-08-1999 Discharged [facility] Start: 06-26-1999 End: 07-09-1999 Discharged [facility] Start: 03-29-1998 End: 03-29-1998 [facility] Start: 02-24-1987 End: 02-28-1987 [facility] Start: 12-22-1986 End: 12-23-1986 Evaluation and management of [facility] Procedures Date Procedure Procedure Detail Performing Clinician Start: 11-10-2023 Urnls dip stick/tabl et reagent auto microscopy Susan Sandra [employer] 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 Start: 04-26-2024 Lipid panel Lipids [facility] Start: 04-25-2024 GFR test (Diabetes, CKD 3-4, OR last GFR 15-59) GFR test (Diabetes, CKD 3-4, OR last GFR 15-59) [facility] [employer] Start: 08-05-2023 Annual Wellness Visi t (Medicare) Annual Wellness Visit (Medicare) [facility] [employer] Start: 05-10-2023 COVID-19 Vaccine ( season) COVID-19 Vaccine ( season) [facility] [employer] Start: 04-09-2023 Influenza vaccination Flu vaccine (# 1) [facility] Start: 07-20-2022 [facility] Start: 07-18-2022 Lipid panel [facility] Start: 07-17-2022 Hospital admission [facility] Start: 07-17-2022 Physical therapy procedure [facility] Start: 07-17-2022 Referral to senior health educator [facility] Start: 07-17-2022 Referral to occupati onal therapist [facility] Start: 07-17-2022 [facility] Start: 07-17-2022 [facility] Start: 2021 Abdominal aortic aneurysm screening AAA screen [facility] [employer] Start: 01-24-2021 Pneumococcal 65+ yea rs Vaccine (2 - PPSV23 or PCV20) Pneumococcal 65+ years Vaccine (2 - PPSV23 or PCV20) [facility] [employer] Start: 2016 Respiratory Syncytia l Virus (RSV) or age 60 yrs+ (1 - 1-dose 60+ series) Respiratory Syncytial Virus (RSV) or age 60 yrs+ (1 - 1-dose 60+ series) [facility] [employer] Start: 2006 Screening for malign ant neoplasm of lung Low dose CT lung screening &/or counseling [facility] Start: 2006 Shingles vaccine (1 of 2) Shingles vaccine (1 of 2) [facility] Start: 2001 Screening for malign ant neoplasm of colon [facility] Start: 1974 Glaucoma screening Diabetic retinal exam [facility] Start: 1974 Hepatitis C screening Hepatitis C sc reen [facility] Start: 1974 Urine screening for protein Diabetic Alb to Cr ratio (uACR) test [facility] Start: 1968 Depression Screen Depression Screen [facility] Start: 1966 Diabetic foot examination Diabetic foot exam [facility] Start: 1966 Hemoglobin A1c measurement A1C test (Diabetic or Prediabetic) [facility] Bacteria identified in Blood by Culture Blood Culture [facility] Blood culture for bacteria, including anaerobic screen Blood Culture [facility] End: 11-10-2023 Culture, Urine [facility] Work Phone: Comment on above: Once for 1 Occurrenc es starting 11/10/2023 until 11/10/2023 Patient referral [facility] Work Phone: [facility] Payers Date Payer Category Payer Self-pay 1958 Medicare [id number] 1959 Unknown [id number] 1956 Unknown [id number] 2.16.84 0.1.925573.3.579.2.593 1956 Unknown [id number] 2.16.84 0.1.840784.3.579.2.593 1956 Unknown [id number] 2.16.84 0.1.619957.3.579.2.593 1956 Unknown [id number] 2.16.84 0.1.057646.3.579.2.593 1956 Unknown [id number] 2.16.84 0.1.908797.3.579.2.593 1956 Unknown [id number] 2.16.84 0.1.282539.3.579.2.593 1956 Unknown [id number] 2.16.84 0.1.914903.3.579.2.593 1956 Unknown [id number] 2.16.84 0.1.458555.3.579.2.593 1956 Unknown [id number] 2.16.84 0.1.383139.3.579.2.593 1956 Unknown [id number] 2.16.84 0.1.153660.3.579.2.593 1956 Unknown [id number] 2.16. 840.1.348665.3.579.2.356 1956 Unknown [id number] 2.16. 840.1.730447.3.579.2.356 1956 Unknown [id number] 2.16. 840.1.076974.3.579.2.356 1956 Unknown [id number] 2.16. 840.1.635494.3.579.2.356 1956 Unknown [id number] 2.16. 840.1.143003.3.579.2.356 1956 Unknown [id number] 2.16. 840.1.133486.3.579.2.356 1956 Unknown [id number] 2.16.8 40.1.308031.3.579.2.173 Unknown [id number] Unknown [facility] [id number] Unknown [id number] 2.16.8 40.1.200264.3.579.2.531 Unknown [id number] 2.16.8 40.1.555804.3.579.2.531 Social History Date Type Detail Facility Start: 07-17-2022 End: 07-18-2022 Tobacco smoking status NHIS Smoker (finding) [facility] Start: 1955 Sex Assigned At Male F [facility] Start: 04-25-2023 Sex Assigned At N [facility] Other Start: 12-26-2016 Tobacco smoking stat us ORIS Smokes tobacco daily [employer] History of tobacco use Cigarette Smoker [facility] [employer] Start: 12-26-2016 End: 04-25-2023 Cigarettes smoked current (pack per day) - Reported 1.5 [facility] [employer] 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 Medical Equipment Procedure Code Equipment Code Equipment Origin al Text Equipment Identifier Dates [id number] Start: 12-24-2018 End: 04-11-2019 Glucose test strips Start : 12-24-2018 End: 04-10-2019 Glucose test strips Start : 12-24-2018 End: 04-10-2019 Glucose test strips Start : 12-24-2018 End: 04-10-2019 Goals Date Patient Goal Desired Activity /State Functional Status Date Assessment Result Facility 07-20-2022 Functional status Patient at Baseline [facility] Work Phone: Mental Status Date Assessment Result Facility 07-20-2022 Cognitive function Cognitive Sta tus Patient at Baseline [facility] Work Phone: Clinical Notes 2018 to 03-26-2024 Note Date & Type Note Facility 03-26-2024 Note [facility] Cardiology Clinic Note Chief Complaint: New patient here to establish care. Ref from Dr. Reynolds for abnormal stress test. 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 Stress test was ordered for [...] Coronary artery disease, PVD (peripheral vascular disease) ([facility]), and Stroke ([facility]). Surgical History He has a past surgical [...] Coronary angiography: Left (more content not included)... 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 Additional Equipment Requests [facility] 02-17-2024 Note [facility] Cardiology Clinic Note Chief Complaint: New patient here to establish care. Ref from Dr. Reynolds for abnormal stress test. 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 Stress test was ordered for [...] catheterization. I will not be in the [employer] for the next 3 to 4 weeks; [...] antiplatelet therapy, moder (more content not included)... [facility] 11-05-2022 Evaluation note Encounter Date [...] (ICD-10 - G89.29) Follow up after procedure. [email or web address] Other 02-09-2023 Evaluation note* Encounter Date Diagnosis [...] cant remember who the surgeon was in [place]. He presents with his today, both the [...] negative findings were considered in medical decision-making. [email or web address] Other 11-11-2022 Discharge summary Author Sang Bauer [facility] July 20, 2022 6:39pm Note Date/Time July 20, 2022 3:04pm [facility] [address] [place] [address] Discharge Summary Signed Patient: Taylor Mcclellan MR#: [id number] : 1955 Acct:[id number] Age/Sex: 66 / M Adm Date: 2 Loc: Room: [address] [place] [address]: Sang Bauer MD Copies to: [...] affect Discharge Plan Discharge Plan Patient Disposition: Alf Facility Activity: No Activity Restriction Diet: Low-Sodium [...] tablet 75 mg PO DAILY Discontinued hydrocodone-acetaminophen [Orient] 5-325 mg tablet 1 tab PO BID PRN (Reason: Pain) Qty: 0 0RF Other Ambulatory Orders: DME Home Medical Equipment (Routine) Timeframe: [id number] Location: Determined by Patient Ordered By: Sang Bauer Follow Up: Lilia Hopper APRN [Nurse Practitioner] - 08/22/22 10:30 am Documented By: Sang Bauer MD 07/20/22 1504 Signed By: <Electronically signed by Sang Bauer MD> 07/20/22 1839 [facility] Work Phone: 1(262) 291-505511-11-2022 Progress note Author Itzel Adams [facility] July 20, 2022 8:06am Note Date/Time July 20, 2022 8:06am [facility] [address] [place] [address] Cardiology Progress Note Signed Patient: Taylor Mcclellan SR MR#: [id number] : 1955 Acct:[id number] Age/Sex: 66 / M Adm Date: 2 Loc: Room: [address] [place] [address] Type: ADM INOo Attending Dr: Sang Bauer [...] it is a single-vessel bypass done in [place] record is not available patient and his cannot remember which hospital he had his surgery at. He does not follow with cardiology Qualifiers: Coronary Disease-Associated Artery/Lesion type: [place] artery [place] vs. transplanted heart: [place] heart Associated angina: without angina Qualified Code(s): I25.10 - Atherosclerotic heart disease of [place] coronary artery without angina pectoris Code(s): I25.10 - Atherosclerotic heart disease of [place] coronary artery without angina pectoris Status: Acute [...] 3. Stress test negative for ischemia or [place]. Patient can be discharged home cardiac chew Documented By: Itzel Adams MD 07/20/22804 Signed By: <Electronically signed by MD Itzel Adams> 07/20/22805 [facility] Work Phone: 1(641) 153-150111-10-2022 Progress note [facility] July 19, 2022 4:57pm Note Date/Time July 19, 2022 4:57pm [facility] [address] [place] [address] Hospitalist Progress Note Signed Patient: Taylor Mcclellan SR MR#: [id number] : 1955 Acct:[id number] Age/Sex: 66 / M Adm Date: 2 Loc: Room: [address] [place] [address] Type: ADM INOo Attending Dr: Sang Bauer [...] Insuln.Pen SUBCUT 07/17/23 21:59 Not Given TID.WM.[facility] Protocol Lamotrigine 100 mg 07/18/22 12:00 [...] <Electronically signed by Sang Bauer MD> 07/19/221656 [facility] Work Phone: 1(888) 860-359111-10-2022 Progress note Author Itzel Adams [facility] July 19, 2022 8:35am Note Date/Time July 19, 2022 8:35am [facility] [address] [place] [address] Cardiology Progress Note Signed Patient: Taylor Mcclellan MR#: [id number] : 1955 Acct:[id number] Age/Sex: 66 / M Adm Date: 2 Loc: 3T Room: [address] [place] [address] Type: ADM INOo Attending Dr: Sang Bauer [...] it is a single-vessel bypass done in [place] record is not available patient and his cannot remember which hospital he had his surgery at. He does not follow with cardiology Qualifiers: Coronary Disease-Associated Artery/Lesion type: [place] artery [place] vs. transplanted heart: [place] heart Associated angina: without angina Qualified Code(s): I25.10 - Atherosclerotic heart disease of [place] coronary artery without angina pectoris Code(s): I25.10 - Atherosclerotic heart disease of [place] coronary artery without angina pectoris Status: Acute [...] <Electronically signed by MD Itzel Adams> 07/19/22834 [facility] Work Phone: 1(732) 800-333011-09-2022 Progress note Author Sang Bauer [facility] July 18, 2022 3:24pm Note Date/Time July 18, 2022 3 :24pm [facility] [address] [place] [address] Hospitalist Progress Note Signed Patient: Taylor Mcclellan MR#: [id number] : 1955 Acct:[id number] Age/Sex: 66 / M Adm Date: 2 Loc: Room: [address] [place] [address] Type: ADM INOo Attending Dr: Sang Bauer [...] Insuln.Pen SUBCUT 07/17/23 21:59 Not Given TID.WM.[facility] Protocol Lamotrigine 100 mg 07/18/22 12:00 [...] 11:15 Brexpiprazole [Rexulti] PO 07/18/23 11:14 1XD [facility] Ondansetron HCl 4 mg 07/17/22 18:33 [...] signed by Sang Bauer MD> 07/18/22 1524 [facility] Work Phone: 1(572) 273-472511-09-2022 History and physical note Author Sang Bauer [facility] July 18, 2022 3:22pm Note Date/Time July 17, 2022 6 :41pm [facility] [address] [place] [address] Hospitalist H&P Signed Patient: Taylor Mcclellan SR MR#: [id number] : 1955 Acct:[id number] Age/Sex: 66 / M Adm Date: 2 Loc: Room: [address] [place] [address] Type: ADM INOo Attending Dr: Sang Bauer [...] at home. Reportedly patient was taken to [facility] couple days ago when he [...] his live in a mobile home in [place]. Meds Medications and Allergies Allergies chlordiazepoxide [From [...] 07/17/22] hydrocodone 5 mg-acetaminophen 325 mg tablet (Orient) 1 tab PO BID PRN Pain #0 [...] % (Auto) 29.5 % (.) 07/17/22 15:44 [place] % (Auto) 5.4 % (.) 07/17/22 15:44 Eos % (Auto) 0.7 % (.) 07/17/22 15:44 Baso % (Auto) 1.0 % (.) 07/17/22 15:44 Neut # (Auto) 4.9 x10E3/uL (1.8-7.7) 07/17/22 15:44 Lymph # (Auto) 2.3 x10E3/uL (1.00-4.8) 07/17/22 15:44 [place] # (Auto) 0.4 x10E3/uL (0.0-0.8) 07/17/22 15:44 [...] code Documented By: Sang Bauer MD 07/17/22 1830 Signed By: <Electronically signed by Sang Bauer MD> 07/18/22 1490 [facility] Work Phone: 1(288) 903-906211-09-2022 Consult note Author Itzel Adams [facility] July 18, 2022 11:46am Note Date/Time July 18, 2022 1 1:43am [facility] [address] [place] [address] Cardiology Consult Note Signed Patient: Taylor Mcclellan SR MR#: [id number] : 1955 Acct:[id number] Age/Sex: 66 / M Adm Date: 2 Loc: Room: [address] [place] [address] Type: ADM INOo Attending Dr: Sang Bauer MD Copies to: MD Genesis Goetz MD Mourhaf A Traboulssi, MD~ Cardiology HPI History of Present Illness Consult Date: 07/18/22 Reason for Consult: Chest pain HPI: Mr. Mcclellan is a 66 year old male with known history of coronary artery disease and prior bypass surgery done in [place]. No records available. Patient report to have [...] his live in a mobile home in [place]. Meds Medications and Allergies Allergies chlordiazepoxide [From [...] 07/17/22] hydrocodone 5 mg-acetaminophen 325 mg tablet (Orient) 1 tab PO BID PRN Pain #0 [...] x10E3/uL Lymph # (Auto) 2.3 (1.00-4.8) x10E3/uL [place] # (Auto) 0.4 (0.0-0.8) x10E3/uL Eos # [...] @ 100 mls/hr IV ONCE ONE Rx #:[id number] Oral 0 / 0 50 / 50 [...] it is a single-vessel bypass done in [place] record is not available patient and his cannot remember which hospital he had his surgery at. He does not follow with cardiology Qualifiers: Coronary Disease-Associated Artery/Lesion type: [place] artery [place] vs. transplanted heart: [place] heart Associated angina: without angina Qualified Code(s): I25.10 - Atherosclerotic heart disease of [place] coronary artery without angina pectoris Code(s): I25.10 - Atherosclerotic heart disease of [place] coronary artery without angina pectoris (3) Hx [...] signed by MD Itzel Adams> 07/18/22 1146 [facility] Work Phone: 1(472) 681-921311-08-2022 History and physical note Author Sang Bauer [facility] July 18, 2022 3:22pm Note Date/Time July 17, 2022 6 :41pm [facility] [address] [place] [address] Hospitalist H&P Signed Patient: Taylor Mcclellan MR#: [id number] : 1955 Acct:[id number] Age/Sex: 66 / M Adm Date: 2 Loc: Room: [address] [place] [address] Type: ADM INOo Attending Dr: Sang Bauer [...] at home. Reportedly patient was taken to [facility] couple days ago when he [...] his live in a mobile home in [place]. Meds Medications and Allergies Allergies chlordiazepoxide [From [...] 07/17/22] hydrocodone 5 mg-acetaminophen 325 mg tablet (Orient) 1 tab PO BID PRN Pain #0 [...] % (Auto) 29.5 % (.) 07/17/22 15:44 [place] % (Auto) 5.4 % (.) 07/17/22 15:44 Eos % (Auto) 0.7 % (.) 07/17/22 15:44 Baso % (Auto) 1.0 % (.) 07/17/22 15:44 Neut # (Auto) 4.9 x10E3/uL (1.8-7.7) 07/17/22 15:44 Lymph # (Auto) 2.3 x10E3/uL (1.00-4.8) 07/17/22 15:44 [place] # (Auto) 0.4 x10E3/uL (0.0-0.8) 07/17/22 15:44 [...] <Electronically signed by Sang Bauer MD> 07/18/22 [facility] Work Phone: 1(887) 899-431101-07-2019 Consult note Author Itzel Adams [facility] July 18, 2022 11:46am Note Date/Time July 18, 2022 1 1:43am [facility] [address] [place] [address] Cardiology Consult Note Signed Patient: Taylor Mcclellan MR#: [id number] : 1955 Acct:[id number] Age/Sex: 66 / M Adm Date: 2 Loc: 3T Room: [address] [place] [address] Type: ADM INOo Attending Dr: Sang Bauer MD Copies to: MD Genesis Goetz MD Mourhaf A TraboulssiMD~ Cardiology HPI History of Present Illness Consult Date: 07/18/22 Reason for Consult: Chest pain HPI: Mr. Mcclellan is a 66 year old male with known history of coronary artery disease and prior bypass surgery done in [place]. No records available. Patient report to have [...] his live in a mobile home in [place]. Meds Medications and Allergies Allergies chlordiazepoxide [From [...] 07/17/22] hydrocodone 5 mg-acetaminophen 325 mg tablet (Orient) 1 tab PO BID PRN Pain #0 [...] x10E3/uL Lymph # (Auto) 2.3 (1.00-4.8) x10E3/uL [place] # (Auto) 0.4 (0.0-0.8) x10E3/uL Eos # [...] @ 100 mls/hr IV ONCE ONE Rx #:[id number] Oral 0 / 0 50 / 50 [...] it is a single-vessel bypass done in [place] record is not available patient and his cannot remember which hospital he had his surgery at. He does not follow with cardiology Qualifiers: Coronary Disease-Associated Artery/Lesion type: [place] artery [place] vs. transplanted heart: [place] heart Associated angina: without angina Qualified Code(s): I25.10 - Atherosclerotic heart disease of [place] coronary artery without angina pectoris Code(s): I25.10 - Atherosclerotic heart disease of [place] coronary artery without angina pectoris (3) Hx [...] signed by MD Itzel Adams> 07/18/22 1146 [facility] Work Phone: Discharge summary Author Sang Bauer [facility] July 20, 2022 6:39pm Note Date/Time July 20, 2022 3:04pm [facility] [address] [place] [address] Discharge Summary Signed Patient: Taylor Mcclellan MR#: [id number] : 1955 Acct:[id number] Age/Sex: 66 / M Adm Date: 2 Loc: Room: [address] [place] [address]: Sang Bauer MD Copies to: [...] affect Discharge Plan Discharge Plan Patient Disposition: Alf Facility Activity: No Activity Restriction Diet: Low-Sodium [...] tablet 75 mg PO DAILY Discontinued hydrocodone-acetaminophen [Orient] 5-325 mg tablet 1 tab PO BID PRN (Reason: Pain) Qty: 0 0RF Other Ambulatory Orders: [facility] Home Medical Equipment (Routine) Timeframe: [id number] Location: Determined by Patient Ordered By: Sang Bauer Follow Up: Lilia Hopper APRN [Nurse Practitioner] - 08/22/22 10:30 am Documented By: Sang Bauer MD 07/20/22 5638 Signed By: <Electronically signed by Sang Bauer MD> 07/20/22 8208 [facility] Work Phone: Evaluation note* Diagnosis Onset Date Resolution Status Chest pain acute Coronary artery disease acut e Generalized weakness acute Hx of CABG acute Diabetes mellitus chronic HTN (hypertension) chronic [facility] Work Phone: Evaluation note* Diagnosis Onset Date Resolution Status Bipolar 1 disorder, depressed, severe acute Chest pain acute Coronary artery disease acut e Generalized weakness acute Hx of CABG acute Chronic back pain chronic Diabetes mellitus chronic HTN (hypertension) chronic [facility] Work Phone: Evaluation noteNo assessment information available [facility] Work Phone: Evaluation noteNo InformationNortSub[facility] [employer] Other History general Narrative - Reported* Type Description Date Medical History CABG Medical History BPH Medical History HTN Medical History Diabetes Medical History HLD Medical History lumbosacral spondylosis Medical History lumbar neuritis Medical History disorder of sacrum Surgical History previous back surgery Surgical History heart valve replacement Surgical History CABG Hospitalization History see above [facility] Other Hospital Discharge instructions Additional Instructions SNF TO MANAGE: PT/OT to eval and treat Monitor VS per protocol--HTN Monitor FSBS Maintain high risk fall precautions Care [facility] be managed [facility] Work Phone: Progress note Author Sang Bauer [facility] July 18, 2022 3:24pm Note Date/Time July 18, 2022 3 :24pm [facility] [address] [place] [address] Hospitalist Progress Note Signed Patient: Taylor Mcclellan SR MR#: [id number] : 1955 Acct:[id number] Age/Sex: 66 / M Adm Date: 2 Loc: Room: [address] [place] [address] Type: ADM INOo Attending Dr: Sang Bauer [...] Insuln.Pen SUBCUT 07/17/23 21:59 Not Given TID.WM.HS [facility] Protocol Lamotrigine 100 mg 07/18/22 12:00 [...] 11:15 Brexpiprazole [Rexulti] PO 07/18/23 11:14 1XD [facility] Ondansetron HCl 4 mg 07/17/22 18:33 [...] signed by Sang Bauer MD> 07/18/22 1524 [facility] Work Phone: Progress note Author Itzel Adams [facility] July 19, 2022 8:35am Note Date/Time July 19, 2022 8:35am [facility] [address] [place] [address] Cardiology Progress Note Signed Patient: Taylor Mcclellan MR#: [id number] : 1955 Acct:[id number] Age/Sex: 66 / M Adm Date: 2 Loc: Room: [address] [place] [address] Type: ADM INOo Attending Dr: Sang Bauer [...] it is a single-vessel bypass done in [place] record is not available patient and his cannot remember which hospital he had his surgery at. He does not follow with cardiology Qualifiers: Coronary Disease-Associated Artery/Lesion type: [place] artery [place] vs. transplanted heart: [place] heart Associated angina: without angina Qualified Code(s): I25.10 - Atherosclerotic heart disease of [place] coronary artery without angina pectoris Code(s): I25.10 - Atherosclerotic heart disease of [place] coronary artery without angina pectoris Status: Acute [...] 07/19/2234 Signed By: <Electronically signed by MD tIzel Adams> 07/19/22834 [facility] Work Phone: Progress note Author Sang Bauer [facility] July 19, 2022 4:57pm Note Date/Time July 19, 2022 4:57pm [facility] [address] [place] [address] Hospitalist Progress Note Signed Patient: Taylor Mcclellan SR MR#: [id number] : 1955 Acct:[id number] Age/Sex: 66 / M Adm Date: 2 Loc: Room: [address] [place] [address] Type: ADM INOo Attending Dr: Sang Bauer [...] Insuln.Pen SUBCUT 07/17/23 21:59 Not Given TID.WM.HS [facility] Protocol Lamotrigine 100 mg 07/18/22 12:00 [...] code Documented By: Sang Bauer MD 07/19/22 8706 Signed By: <Electronically signed by Sang Baeur MD> 07/19/22 8964 [facility] Work Phone: Progress note Author Itzel Adams [facility] July 20, 2022 8:06am Note Date/Time July 20, 2022 8:06am [facility] [address] [place] [address] Cardiology Progress Note Signed Patient: Taylor Mcclellan SR MR#: [id number] : 1955 Acct:[id number] Age/Sex: 66 / M Adm Date: 2 Loc: 3T Room: [address] [place] [address] Type: ADM INOo Attending Dr: Sang Bauer [...] it is a single-vessel bypass done in [place] record is not available patient and his cannot remember which hospital he had his surgery at. He does not follow with cardiology Qualifiers: Coronary Disease-Associated Artery/Lesion type: [place] artery [place] vs. transplanted heart: [place] heart Associated angina: without angina Qualified Code(s): I25.10 - Atherosclerotic heart disease of [place] coronary artery without angina pectoris Code(s): I25.10 - Atherosclerotic heart disease of [place] coronary artery without angina pectoris Status: Acute [...] 3. Stress test negative for ischemia or [place]. Patient can be discharged home cardiac chew Documented By: Itzel Adams MD 07/20/22 0805 Signed By: <Electronically signed by MD Itzel Adams> 07/20/22 08 [facility] Work Phone: Summary Purpose Family [...] and content) DATE CREATED AUTHOR 10/15/2019 [facility] DATE CREATED AUTHOR AUTHOR'S ORGANIZ ATION 11/29/2021 [facility] DATE CREATED AUTHOR AUTHOR'S ORGANIZ ATION 01/21/2023 [facility] DATE CREATED AUTHOR AUTHOR'S ORGANIZ ATION 01/23/2023 [facility] DATE CREATED AUTHOR AUTHOR'S ORGANIZ ATION 08/18/2023 [facility] DATE CREATED AUTHOR AUTHOR'S ORGANIZ ATION 11/11/2023 [facility] DATE CREATED AUTHOR AUTHOR'S ORGANIZ ATION 03/30/2024 [facility] Care Teams (unrecognized sec tion and content) Team Status: Active Member Role Status Sabrina Reynolds MD Primary Care Provider Active Segundo Huston MD Emergency Provider Active Sang Bauer MD Admit Provider, Attending Provider A stefania Mckeon RN Other Provider Active Lawrence Lee DO Other Provider Active Kaden [place] MD Other Provider Active Ednison Bustamante MD Other Provider Active Itzel Adams MD Other Provider Active Ramos Fraga MD Other Provider Active Lilia Orourke APRN Other Provider Active Cinthia Rae MD Other Provider Active Ramón Ayala MD Other Provider Active Flavio Ramirez MD Other Provider Active Pily Winslow [facility] Other Provider Active Adelaide Leonardo MD [...] Active Benson Lane MD Attending Provider Active 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 [employer] provides no warranty or guarantee of the accuracy or completeness of information in this document.
--- NOTE | 2024-04-30 07:00 | MR_ITS ---
The [address] [address] Patient Name: TAYLOR MCCLELLAN MRN: [facility]:[id number] date: 1955 Sex: M Assigned Patient Location: [place] Current Patient Location: [place] Accession/Order Number: [id number] Exam Date: 04/30/2024 11:45 Report Date: 04/30/2024 12:47 At the request of: SORAYA JOHN Procedure: MR head/brain wo con EXAM: MR head/brain wo con CLINICAL INDICATION: TIA, Right-sided weakness COMPARISON: CT head and CTA head/neck 04/29/2024. TECHNIQUE/PROTOCOL: Standard noncontrast protocol brain MRI performed (Sagittal T1 with axial T1, T2, GRE, FLAIR, and diffusion-weighted imaging). FINDINGS: No restricted diffusion, extra-axial fluid collection, hydrocephalus, midline shift, or other mass effect. Intracranial flow voids are maintained. Faint patchy hyperintense T2/FLAIR periventricular and subcortical foci are likely on the basis of chronic microvascular angiopathic changes. Moderate symmetric global volume loss with bilateral frontal lobe predominance. Commensurate ventricular system caliber prominence. Old bilateral basal ganglia lacunar infarcts. Normal marrow signal. No acute soft tissue abnormalities. Small trichilemmal cyst in the superior left frontal scalp. Paranasal sinuses are well-aerated. Scant bilateral mastoid effusions. MR/MR head/brain wo con IMPRESSION: No acute intracranial process or recent infarction. Electronically authenticated by: JJ DIEZ Date: 04/30/2024 12:47
[2024-04-30 07:09] LABS: Anion Gap 9.7; BUN Creatinine Ratio 16.1; Calcium 9.1 mg/dL (8.5-10.1); Carbon Dioxide 28.5 mmol/L (21.0-32.0); Chloride 107 mmol/L (98-107); Estimated GFR (African America >60 (>=60); Estimated GFR (Non-African Ame >60 (>=60); Glucose 88 mg/dL (74-106); Potassium 4.2 mmol/L (3.5-5.1); Sodium 141 mmol/L (136-145)
[2024-04-30 07:29] LABS: Hemoglobin 13.7 g/dL (14.0-18.0); Mean Corpuscular HGB Conc 32.6 g/dL (29.9-35.2); Mean Corpuscular Hemoglobin 30.2 pg (25.9-34.0); Mean Corpuscular Volume 92.7 fL (80.0-94.0); Platelet Count 205 10^3/uL (150-450); Red Blood Count 4.53 10^6/uL (4.70-6.10); Red Cell Distribution Width 13.8 % (11.0-15.0)
--- NOTE | 2024-04-30 07:31 | CA_ITS ---
Patient Name: TAYLOR MCCLELLAN MR#: [id number] : 1955 Exam Date: 04/30/2024 Ordering Doctor: DR Norbert Jiang . ECHOCARDIOGRAM REPORT PROCEDURE: CA ECHO DOPPLER COMPLETE INDICATIONS: TIA COMPARISON: None. DESCRIPTION: COMPLETE ECHOCARDIOGRAM Real-time transthoracic echocardiography with 2D, M-mode, spectral and color flow Doppler performed. QUALITY: Technical quality was adequate. LEFT VENTRICLE: Normal chamber size. Severe left ventricular hypertrophy. LV EF: Global left ventricular systolic function is normal; visually estimated ejection fraction is 60 to 65%. No obvious wall motion abnormalities. DIASTOLIC: Grade 2, moderate diastolic dysfunction. ATRIAL SEPTUM: Inadequately seen. LEFT ATRIUM: Normal chamber size. RIGHT ATRIUM: Mild dilatation. RIGHT VENTRICLE: Normal chamber size. Normal right ventricular systolic function. TRICUSPID VALVE: Normal mobility and thickness. No stenosis with trivial regurgitation. Mild pulmonary hypertension. RVSP 37mmHg. MITRAL VALVE: Normal mobility and thickness. No evidence of mitral valve stenosis. There is no mitral annular calcification. Mild mitral regurgitation. AORTIC VALVE: Normal trileaflet appearance. No visible sclerosis. Normal leaflet mobility. No evidence of aortic valve stenosis. No aortic regurgitation. AORTIC ROOT: Normal diameter and appearance. PULMONIC VALVE: Normal thickness and mobility. No stenosis. No regurgitation. PERICARDIUM: Minimal pericardial effusion. IVC: Collapses with inspirations. Normal size CONCLUSION: 1. Global left ventricular systolic function is normal; visually estimated ejection fraction is 60 to 65% 2. Normal right ventricular size and systolic function 3. The right atrium is enlarged 4. Severe left ventricular hypertrophy 5. Grade 2, moderate diastolic dysfunction 6. Mildly elevated right ventricular systolic pressure; RVSP 57 mmHg 7. Mild mitral regurgitation 8. Minimal pericardial effusion Adult Echocardiography Procedure Report Left Ventricle LVEDD (3.7 - 5.6 cm): 5.29 cm LVESD (2.2 - 4.0 cm): 3.78 cm LVIVS thickness (0.6 - 1.2 cm): 1.70 cm LVPW thickness (0.5 - 1.0 cm): 1.68 cm e': 0.06 m/s E - e': 16.79 LVOT Max Gradient: 2.73 mm[Hg] LVOT Area (cm2): 0.83 m/s Peak Velocity (LVOT): 0.83 m/s Mean Velocity (LVOT): 0.51 m/s LVOT Diameter 2.30 cm Left Ventricular Ejection Fraction: 54.68 % Left Atrium LA Volume Index (2D A2C): 34.34 ml/m2 Left Atrium Systolic Dimension: 4.02 cm Mitral Valve MV E to A Ratio: 0.78 MV Max Gradient: MV Mean Gradient: Mitral Valve A-Wave Peak Velocity: 1.33 m/s Mitral Valve E-Wave Peak Velocity: 1.04 m/s Cardiovascular Orifice Area: Right Ventricle RV Internal Diastolic Dimension: 3.05 cm Aorta AO Root Diam: 3.86 cm Ascending Ao Diam: 2.48 cm Aortic Valve AoV Area (Peak Jp): 2.48 cm2, 2.48 cm2 AoV Area (VTI): 2.86 cm2, 2.86 cm2 Deceleration Alexander: Pressure Half-Time: Peak Velocity(Antegrade Flow): 1.38 m/s Peak Gradient(Antegrade Flow): 7.59 mm[Hg] Mean Velocity(Antegrade Flow): 0.87 m/s Mean Gradient(Antegrade Flow): 3.56 mm[Hg] Velocity Time Integral: 25.38 cm Tricuspid Valve Peak Velocity (Regurgitant Flow): 2.92 m/s, 2.80 m/s, 2.66 m/s Peak Velocity: Pulmonic Valve Mean Gradient: 1.51 mm[Hg], 1.42 mm[Hg] Mean Velocity: 0.59 m/s, 0.55 m/s Peak Velocity: 0.82 m/s Peak Gradient: 2.66 mm[Hg], 2.66 mm[Hg] Right Atrium Right Atrium Systolic Pressure: 44.85 ml, 44.85 ml Dictated by: Dottie De León M.D. on 04/30/2024 at 16:55 Approved by: Dottie De León M.D. on 04/30/2024 at 16:59
--- NOTE | 2024-04-30 08:05 | P.DS_ITS ---
DS: Providers Provider Date of admission: 04/30/24 00:53 Primary care physician: Norbert Jiang MD Consults: 04/29/24 23:06 Consult to TeleNeurology Routine Reason for consultation: consult discussion with [facility] 04/30/24 09:00 Occupational Therapy Eval and Treat Routine Reason for consultation: TIA, right-sided weakness Physical Therapy Eval and Treat Routine Reason for consultation: TIA, right-sided weakness Has provider been notified: No Speech Therapy Eval and Treat Routine Reason for consultation: TIA, Right-seded weakness Has provider been notified: No DS: Diagnosis Discharge Diagnosis (1) Weakness: (2) Sciatica: (3) Weakness: DS: Summary Hospital Course Hospital Course: Patient had an episode of right hand weakness. Dropped his fork. He is at a assisted living facility and they recommended him go to the emergency room for evaluation. In the ER he had his symptoms had resolved, he was admitted overnight for workup, CTA head and neck were normal, echocardiogram unremarkable, MRI scan of brain showed no acute stroke. He is back to his baseline and will be transferred back to his assisted living facility. Medications see list. I will continue to follow patient monthly at the assisted living facility Status at Discharge Overall status at discharge: patient is back to baseline Time Spent with Patient Time attestation: Total time spent providing and/or coordinating discharge services: Time spent: greater than 30 minutes Exam Constitutional Vital Signs, click to edit/add: Last Vital Signs Temp 97.7 F 04/30/24 04:09 Pulse 76 04/30/24 07:59 Resp 18 04/30/24 04:09 BP 149/78 H 04/30/24 04:09 Pulse Ox 92 L 04/30/24 04:09 O2 Del Method Room Air 04/30/24 04:09 Documenting provider has reviewed patient's vital signs: yes Common normals: no apparent distress Chest Common normals: inspection of chest normal Respiratory Common normals: normal respiratory effort and no retractions Cardio Common normals: regular rate and regular rhythm GI Common normals: Normal to inspection, nondistended, normoactive bowel sounds present, soft to palpation and non-tender Neuro Common normals: oriented x3, CN's II-XII intact bilaterally, moves all extremities and no focal motor deficits DS: Data Data Completed and Pending Labs on day of discharge: Labs from last 24 hours 04/30/24 04/29/24 04/29/24 06:54 18:27 17:19 WBC 10.0 8.0 RBC 4.53 L 4.15 L Hgb 13.7 L 12.9 L Hct 42.0 38.3 L MCV 92.7 92.3 MCH 30.2 31.1 MCHC 32.6 33.7 RDW 13.8 13.6 Plt Count 205 220 MPV 12.0 11.8 Neut % (Auto) 57.5 Lymph % (Auto) 30.8 [place] % (Auto) 8.6 Eos % (Auto) 2.2 Baso % (Auto) 0.7 Neut # (Auto) 4.6 Lymph # (Auto) 2.5 [place] # (Auto) 0.7 Eos # (Auto) 0.2 Baso # (Auto) 0.1 Abs Immat Gran (auto) 0.02 Imm/Tot Granulo (auto) 0.2 PT 11.5 INR 1.09 Sodium 141 141 Potassium 4.2 4.4 Chloride 107 106 Carbon Dioxide 28.5 29.7 Anion Gap 9.7 9.7 BUN 15.0 19.0 H Creatinine 0.93 1.16 Est GFR ( Amer) >60 >60 Est GFR (Non-Af Amer) >60 >60 BUN/Creatinine Ratio 16.1 16.4 Glucose 88 105 Calcium 9.1 8.7 Total Bilirubin 0.4 AST 14 L ALT 23 Alkaline Phosphatase 87 Troponin I High Sens 4.5 Total Protein 6.6 Albumin 3.1 L Globulin 3.5 Albumin/Globulin Ratio 0.9 POC Glucose 127 H Discharge Plan Discharge Disposition: Home, Self-Care Discharge Medications: Continued clopidogrel 75 mg tablet 75 mg PO QDAY carvedilol [Coreg] 12.5 mg tablet 12.5 mg PO BID Rx Instructions: must administer with a meal/food aspirin 81 mg capsule 81 mg PO DAILY Hold Instructions: pt stopped taking celecoxib 200 mg Capsule 200 mg PO DAILY Qty: 30 11RF atorvastatin 40 mg tablet 40 mg PO QDAY nicotine 21 mg/24 hr patch 24 hour 1 patch transdermal Q24H mirtazapine 45 mg tablet 45 mg PO .QHS ezetimibe 10 mg tablet 10 mg PO DAILY cyclobenzaprine 10 mg tablet 10 mg PO TID PRN (Reason: muscle spasm) divalproex 500 mg tablet,delayed release (DR/EC) 500 mg PO Q12H famotidine 40 mg tablet 40 mg PO DAILY tamsulosin 0.4 mg capsule 0.4 mg PO DAILY tramadol 50 mg tablet 100 mg PO QID PRN (Reason: pain) candesartan 8 mg tablet 8 mg PO DAILY gabapentin 600 mg tablet 600 mg PO QID primidone 50 mg tablet 50 mg PO DAILY Activity: resume usual activities as tolerated Diet: advance to your usual diet Print Language: Mac[place] Patient Instructions: Transient Ischemic Attack (DC) 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 Jiang [phone] Discharge Date/Time: 04/30/24 16:25
--- NOTE | 2024-04-30 08:05 | P.HP_ITS ---
HPI H&P: HPI History of Present Illness Chief complaint: Altered Mental Status TIA Narrative: Patient presented to emergency room with an episode of dropping his fork. Staff at assisted living facility concern for stroke. Notes that there is communication with me for referral to ER but I did not talk to anybody at the assisted living facility. Workup in the ER was unremarkable. Patient admitted for further evaluation for possible TIA as symptoms had resolved in the ER When I saw patient up on the medical surgical floor he had no complaints, oriented to person place and time, no weakness per his description. He does not recall the events of yesterday. Opioid HPI Opioid Management Most Recent Pain and Opioid Data: Last Pain Scale 8 04/15/24 11:00 Last Pain Assessment 04/30/24 06:00 Last ORT Total Score 6 04/30/24 01:15 Last ORT Risk Category Moderate Risk 04/30/24 01:15 Ur Phencyclidine Scrn Negative (NEGATIVE) 11/05/23 16:26 PFSH PFSH Medical History Ambulatory dysfunction ?R26.2 - Difficulty in walking, not elsewhere classified (ICD-10) Fall ?W19.XXXA - Unspecified fall, initial encounter (ICD-10) Chronic low back pain with bilateral sciatica ?M54.41 - Lumbago with sciatica, right side (ICD-10) ?M54.42 - Lumbago with sciatica, left side (ICD-10) ?G89.29 - Other chronic pain (ICD-10) Altered mental status ?R41.82 - Altered mental status, unspecified (ICD-10) Chronic back pain ?M54.9 - Dorsalgia, unspecified (ICD-10) ?G89.29 - Other chronic pain (ICD-10) Orthostatic dizziness ?R42 - Dizziness and giddiness (ICD-10) Accidental fall ?W19.XXXA - Unspecified fall, initial encounter (ICD-10) CAD (coronary artery disease) ?I25.10 - Atherosclerotic heart disease of [place] coronary artery without angina pectoris (ICD-10) Back pain ?M54.9 - Dorsalgia, unspecified (ICD-10) 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 - Fusion of spine, lumbar region (ICD-10) High cholesterol ?E78.00 - Pure hypercholesterolemia, unspecified (ICD-10) Hypertension ?I10 - Essential (primary) hypertension (ICD-10) IDDM (insulin dependent diabetes mellitus) Restless leg syndrome ?G25.81 - Restless legs syndrome (ICD-10) Suicidal ideation ?R45.851 - Suicidal ideations (ICD-10) Sleep apnea ?G47.30 - Sleep apnea, unspecified (ICD-10) Anxiety ?F41.9 - Anxiety disorder, unspecified (ICD-10) Metabolic encephalopathy ?G93.41 - Metabolic encephalopathy (ICD-10) Depression ?F32.A - Depression, unspecified (ICD-10) Acute renal failure ?N17.9 - Acute kidney failure, unspecified (ICD-10) Altered mental status ?R41.82 - Altered mental status, unspecified (ICD-10) Surgical History S/P CABG (coronary artery bypass graft) ?Z95.1 - Presence of aortocoronary bypass graft (ICD-10) History of heart artery stent ?Z95.5 - Presence of coronary angioplasty implant and graft (ICD-10) Family History Mother Family history of myocardial infarction Social History Within the past year, how often did you have a drink containing alcohol: never Score interpretation: A score less than 4 is consistent with normal alcohol consumption. 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 Known occupational exposures/hazards: No Highest level of school completed/degree received: some college, no degree Do you want help with school or training: No Are you now , , , , never or living with a partner: In a typical week, how many times do you talk on the telephone with family, friends, or neighbors: never How often do you get together with friends or relatives: never How often do you attend religious or sikh services: never Do you belong to any clubs or organizations such as religious groups unions, fraternal or athletic groups, or school groups: no Total score: 1 Score interpretation: A score of less than or equal to 1 indicates the most socially isolated. Little interest or pleasure in doing things: nearly every day Feeling down, depressed, or hopeless: several days Feel stressed/tense/nervous/anxious/difficulty sleeping: very much Life stressors: recent of family or friend Life stressor details: mother and step father a year ago Due to disability, difficulty making decisions: No Do you think of yourself as: straight/heterosexual Gender Identity: male Meds Home Medications and Allergies Home Medications ?Medication ?Instructions ?Recorded ?Confirmed ?Type aspirin 81 mg capsule 81 mg PO DAILY 03/14/23 04/30/24 History carvedilol 12.5 mg tablet (Coreg) 12.5 mg PO BID 03/14/23 04/30/24 History clopidogrel 75 mg tablet 75 mg PO QDAY 03/14/23 04/30/24 History celecoxib 200 mg capsule 200 mg PO DAILY #30 caps 03/15/23 04/30/24 Rx mirtazapine 45 mg tablet 45 mg PO .QHS 11/05/23 04/30/24 History candesartan 8 mg tablet 8 mg PO DAILY 04/14/24 04/30/24 History cyclobenzaprine 10 mg tablet 10 mg PO TID PRN muscle spasm 04/14/24 04/30/24 History divalproex 500 mg tablet,delayed 500 mg PO Q12H 04/14/24 04/30/24 History release ezetimibe 10 mg tablet 10 mg PO DAILY 04/14/24 04/30/24 History famotidine 40 mg tablet 40 mg PO DAILY 04/14/24 04/30/24 History gabapentin 600 mg tablet 600 mg PO QID 04/14/24 04/30/24 History primidone 50 mg tablet 50 mg PO DAILY 04/14/24 04/30/24 History tamsulosin 0.4 mg capsule 0.4 mg PO DAILY 04/14/24 04/30/24 History tramadol 50 mg tablet 100 mg PO QID PRN pain 04/14/24 04/30/24 History atorvastatin 40 mg tablet 40 mg PO QDAY 04/30/24 04/30/24 History nicotine 21 mg/24 hr daily 1 patch transdermal Q24H 04/30/24 04/30/24 History transdermal patch Allergies Allergy/AdvReac Type Severity Reaction Status Date / Time amitriptyline Allergy Verified 11/05/23 23:51 citalopram Allergy Verified 11/05/23 23:51 fentanyl Allergy Verified 11/05/23 23:51 simvastatin [From Zocor] Allergy Verified 11/05/23 23:51 succinylcholine Allergy Verified 11/05/23 23:51 venlafaxine [From Effexor] Allergy Verified 11/05/23 23:51 Exam Constitutional Vital Signs, click to edit/add: Last Vital Signs Temp 97.7 F 04/30/24 04:09 Pulse 76 04/30/24 07:59 Resp 18 04/30/24 04:09 BP 149/78 H 04/30/24 04:09 Pulse Ox 92 L 04/30/24 04:09 O2 Del Method Room Air 04/30/24 04:09 Documenting provider has reviewed patient's vital signs: yes Common normals: no apparent distress Chest Common normals: inspection of chest normal Respiratory Common normals: normal respiratory effort and no retractions Cardio Common normals: regular rate and regular rhythm GI Common normals: Normal to inspection, nondistended, normoactive bowel sounds present, soft to palpation and non-tender Neuro Common normals: oriented x3, CN's II-XII intact bilaterally, moves all extremities and no focal motor deficits Results Labs Labs: Short CBC 04/29/24 04/30/24 Range/Units 18:27 06:54 WBC 8.0 10.0 (4.0-11.0) 10^3/uL Hgb 12.9 L 13.7 L (14.0-18.0) g/dL Hct 38.3 L 42.0 (42.0-54.0) % Plt Count 220 205 (150-450) 10^3/uL BMP 04/29/24 04/30/24 18:27 06:54 Sodium 141 141 Potassium 4.4 4.2 Chloride 106 107 Carbon Dioxide 29.7 28.5 BUN 19.0 H 15.0 Creatinine 1.16 0.93 Glucose 105 88 Calcium 8.7 9.1 Liver Function 04/29/24 Range/Units 18:27 Total Bilirubin 0.4 (0.2-1.0) mg/dL AST 14 L (15-37) U/L ALT 23 (16-63) U/L Alkaline Phosphatase 87 (46-116) U/L Albumin 3.1 L (3.4-5.0) g/dL Assessment and Plan Assessment and Plan (1) Weakness: (2) Lumbar radiculopathy: Plan Admission findings: Patient given a history of right sided weakness with dropping his fork. Evaluation in the ER was unremarkable. Exam in the area was unremarkable. Patient admitted overnight for observation. MRI pending. Lumbar radiculopathy-his weakness may be related to his medication doses of Neurontin and tramadol. May need to adjust those as an outpatient. Right-sided weakness-this is resolved. CTA head and neck was normal, if echocar diogram and MRI scan are normal likely discharge back to assisted living facility. Admission status: Patient with like TIA type symptoms. Medically necessary treatment likely to span only 1 midnight. Observation status.
--- NOTE | 2024-04-30 09:14 | SWNOTE1 ---
Pt is from [facility]
[2024-04-30] MEDS: ASPIRIN 81 MG TAB.CHEW PO (09:22)
[2024-04-30] MEDS: EZETIMIBE 10 MG TABLET PO (09:22)
[2024-04-30] MEDS: CYCLOBENZAPRINE HCL 10 MG TABLET PO (09:22)
[2024-04-30] MEDS: ENOXAPARIN SODIUM 40 MG/0.4 ML SYRINGE SUBQ (09:22)
[2024-04-30] MEDS: NICOTINE 21 MG PATCH.TD24 TD (09:22)
[2024-04-30] MEDS: CELECOXIB 200 MG CAPSULE PO (09:22)
[2024-04-30] MEDS: LOSARTAN POTASSIUM 25 MG TABLET PO (09:22)
[2024-04-30] MEDS: TRAMADOL HCL 50 MG TABLET 100 MG PO ×2 (09:22→15:27)
[2024-04-30] MEDS: CLOPIDOGREL BISULFATE 75 MG TABLET PO (09:22)
[2024-04-30] MEDS: PRIMIDONE 50 MG TABLET PO (09:22)
[2024-04-30] MEDS: FAMOTIDINE 20 MG TABLET 40 MG PO (09:23)
[2024-04-30] MEDS: TAMSULOSIN HCL 0.4 MG CAPSULE PO (09:23)
[2024-04-30] MEDS: DIVALPROEX SODIUM 500 MG TABLET.DR PO (09:23)
[2024-04-30] MEDS: CARVEDILOL 12.5 MG TABLET PO (09:23)
--- NOTE | 2024-04-30 10:58 | SWNOTE1 ---
SW met with pt to discuss dc needs. SW woke pt up from sleeping. Pt is aware that he is at [facility]. Pt could tell SW that he lives at [facility] with his . Pt asked SW if he can return today, SW advised it will depend on testing that needs to be completed. SW did ask permission to call pt's guardian, Eliu. Pt gave permission. SW did review Medicare Outpatient Observation Notice reviewed and discussed with patient. Pt. verbalized understanding and signed the form. Original given to patient and copy placed in patient?s chart. SW to also review HUDSON with Eliu. Pt is in observation status and would need 3 day inpt stay for medicare to pay for rehab, at this time he does not have the funds. ISABELLA has reached out to Elisa at [facility] to see if they have therapy coming in to work with pt, such as HH. Waiting to hear back.
--- NOTE | 2024-04-30 11:01 | SWNOTE1 ---
ISABELLA looked at previous stay from 04/15/24 and Elisa from [facility] did let SW know that pt had outpt therapy coming in from [facility].
--- NOTE | 2024-04-30 11:58 | SWNOTE1 ---
ISABELLA received call from Eliu, pt's guardian, and ISABELLA updated him on plan of care for pt. He did have a few medical questions and ISABELLA advised for him to call and ask for nurse Kelly. ISABELLA also reviewed HUDSON form with Eliu, he voiced understanding and had no questions. ISABELLA did sign that it was reviewed with Eliu.
[2024-04-30] MEDS: GABAPENTIN 300 MG CAPSULE 600 MG PO (12:54)
--- NOTE | 2024-04-30 13:25 | SWNOTE1 ---
Pt can be discharged. ISABELLA called and set up trips and they will be here between 4:00-4:30. SW notified nurse, [facility], and pt's son. Pt is returning to [facility].
--- NOTE | 2024-05-04 15:22 | CM.DCFOLLOWU ---
Patient returned to [facility]
== END 2024-04-30 16:25 | disposition home or self-care (01) ==
LOC: ER 20:55 → MS 04-30 00:54
PROVIDERS: Emergency Medicine; Registered Nurse; Admitting Provider Family Medicine; Emergency Provider Internal Medicine; PCP Family Medicine; Visit Provider Family Medicine
DX: R53.1 Weakness (principal); M54.16 Radiculopathy, lumbar region; M54.30 Sciatica, unspecified side; R47.1 Dysarthria and anarthria; F17.210 Nicotine dependence, cigarettes, uncomplicated
CPT/HCPCS: 36415; 70450; 70496; 70498; 70551; 71045; 80048; 80053; 80307; 80326; 80331; 80334; 80337; 80338; 80341; 80344; 80346; 80348; 80353; 80354; 80355; 80357; 80358; 80359; 80360; 80361; 80364; 80365; 80366; 80367; 80368; 80370; 80371; 80372; 80373; 80377; 81001; 82570; 83992; 84484; 85025; 85027; 85610; 92523; 93005; 93306; 96372; 97161; 97165; 99285; G0378; J1650; Q9967

== ENCOUNTER 2024-05-03 15:10 | Observation (INO) | payer MEDICARE, BC, SELFPAY ==
[2024-05-03] VITALS (20 sets, daily range): BP systolic 79–154; BP diastolic 42–78; PULSE 62–70; TEMP 36.4; O2SAT 73–99; BMI 27.1; BMI 32.4
--- NOTE | 2024-05-03 15:30 | ED_ITS ---
HPI HPI - Fall General Chief Complaint: Fall Stated Complaint: Fall Time Seen by Provider: 05/03/24 15:29 Source: other Source comment: ems Mode of arrival: ambulance Limitations: altered mental status History of Present Illness HPI Narrative: This patient was brought to us back from a care facility assisted living with a witnessed fall. When they arrived his heart rate was slow and his blood pressure was low. They did not administer atropine and his heart rate did come up a little bit. He was incontinent of stool. He was seen immediately on arrival here a twelve-lead EKG was done he was placed on the monitor. His heart rate is now 67 he is got good pulse he is awake alert answering questions but he does not remember what happened. Related Data Home Medications ?Medication ?Instructions ?Recorded ?Confirmed aspirin 81 mg capsule 81 mg PO DAILY 03/14/23 04/30/24 carvedilol 12.5 mg tablet (Coreg) 12.5 mg PO BID 03/14/23 04/30/24 clopidogrel 75 mg tablet 75 mg PO QDAY 03/14/23 04/30/24 mirtazapine 45 mg tablet 45 mg PO .QHS 11/05/23 04/30/24 candesartan 8 mg tablet 8 mg PO DAILY 04/14/24 04/30/24 cyclobenzaprine 10 mg tablet 10 mg PO TID PRN muscle spasm 04/14/24 04/30/24 divalproex 500 mg tablet,delayed 500 mg PO Q12H 04/14/24 04/30/24 release ezetimibe 10 mg tablet 10 mg PO DAILY 04/14/24 04/30/24 famotidine 40 mg tablet 40 mg PO DAILY 04/14/24 04/30/24 gabapentin 600 mg tablet 600 mg PO QID 04/14/24 04/30/24 primidone 50 mg tablet 50 mg PO DAILY 04/14/24 04/30/24 tamsulosin 0.4 mg capsule 0.4 mg PO DAILY 04/14/24 04/30/24 tramadol 50 mg tablet 100 mg PO QID PRN pain 04/14/24 04/30/24 atorvastatin 40 mg tablet 40 mg PO QDAY 04/30/24 04/30/24 nicotine 21 mg/24 hr daily 1 patch transdermal Q24H 04/30/24 04/30/24 transdermal patch Previous Rx's ?Medication ?Instructions ?Recorded celecoxib 200 mg capsule 200 mg PO DAILY #30 caps 03/15/23 Allergies Allergy/AdvReac Type Severity Reaction Status Date / Time amitriptyline Allergy Verified 11/05/23 23:51 citalopram Allergy Verified 11/05/23 23:51 fentanyl Allergy Verified 11/05/23 23:51 simvastatin [From Zocor] Allergy Verified 11/05/23 23:51 succinylcholine Allergy Verified 11/05/23 23:51 venlafaxine [From Effexor] Allergy Verified 11/05/23 23:51 Opioid HPI Opioid Management Most Recent Pain and Opioid Data: Last Pain Scale 7 04/30/24 16:00 Last Pain Intensity 0 04/30/24 09:44 Last Pain Assessment 04/30/24 16:00 Last ORT Total Score 6 04/30/24 01:15 Last ORT Risk Category Moderate Risk 04/30/24 01:15 Ur Phencyclidine Scrn Negative (NEGATIVE) 11/05/23 16:26 PFSH PFSH Medical History Ambulatory dysfunction ?R26.2 - Difficulty in walking, not elsewhere classified (ICD-10) Fall ?W19.XXXA - Unspecified fall, initial encounter (ICD-10) Chronic low back pain with bilateral sciatica ?M54.41 - Lumbago with sciatica, right side (ICD-10) ?M54.42 - Lumbago with sciatica, left side (ICD-10) ?G89.29 - Other chronic pain (ICD-10) Altered mental status ?R41.82 - Altered mental status, unspecified (ICD-10) Chronic back pain ?M54.9 - Dorsalgia, unspecified (ICD-10) ?G89.29 - Other chronic pain (ICD-10) Orthostatic dizziness ?R42 - Dizziness and giddiness (ICD-10) Accidental fall ?W19.XXXA - Unspecified fall, initial encounter (ICD-10) CAD (coronary artery disease) ?I25.10 - Atherosclerotic heart disease of [place] coronary artery without angina pectoris (ICD-10) Back pain ?M54.9 - Dorsalgia, unspecified (ICD-10) 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 - Fusion of spine, lumbar region (ICD-10) High cholesterol ?E78.00 - Pure hypercholesterolemia, unspecified (ICD-10) Hypertension ?I10 - Essential (primary) hypertension (ICD-10) IDDM (insulin dependent diabetes mellitus) Restless leg syndrome ?G25.81 - Restless legs syndrome (ICD-10) Suicidal ideation ?R45.851 - Suicidal ideations (ICD-10) Sleep apnea ?G47.30 - Sleep apnea, unspecified (ICD-10) Anxiety ?F41.9 - Anxiety disorder, unspecified (ICD-10) Metabolic encephalopathy ?G93.41 - Metabolic encephalopathy (ICD-10) Depression ?F32.A - Depression, unspecified (ICD-10) Acute renal failure ?N17.9 - Acute kidney failure, unspecified (ICD-10) Altered mental status ?R41.82 - Altered mental status, unspecified (ICD-10) Surgical History S/P CABG (coronary artery bypass graft) ?Z95.1 - Presence of aortocoronary bypass graft (ICD-10) History of heart artery stent ?Z95.5 - Presence of coronary angioplasty implant and graft (ICD-10) Family History Mother Family history of myocardial infarction Social History Within the past year, how often did you have a drink containing alcohol: never Score interpretation: A score less than 4 is consistent with normal alcohol consumption. 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 Known occupational exposures/hazards: No Highest level of school completed/degree received: some college, no degree Do you want help with school or training: No Are you now , , , , never or living with a partner: In a typical week, how many times do you talk on the telephone with family, friends, or neighbors: never How often do you get together with friends or relatives: never How often do you attend anabaptism or religion services: never Do you belong to any clubs or organizations such as anabaptism groups unions, fraternal or athletic groups, or school groups: no Total score: 1 Score interpretation: A score of less than or equal to 1 indicates the most socially isolated. Little interest or pleasure in doing things: nearly every day Feeling down, depressed, or hopeless: several days Feel stressed/tense/nervous/anxious/difficulty sleeping: very much Life stressors: recent of family or friend Life stressor details: mother and step father a year ago Due to disability, difficulty making decisions: No Do you think of yourself as: straight/heterosexual Gender Identity: male Exam Narrative Exam Narrative: Patient was seen immediately on arrival here. His pulse is increased to at least 60 and his blood pressure was above 100 systolic. His eyes are closed but he does open his eyes and answers questions appropriately. He follows all simple commands and does not show any obvious neurological deficit of the upper or lower limbs. He was covered with stool on arrival here apparently he was incontinent at the assisted living facility. He denies any head or neck pain. There is no blood on his calvarium or head and neck structures. His lungs were clear with no wheeze rales or rhonchi. Heart sounds are normal and a twelve-lead EKG on arrival shows right bundle branch block but no arrhythmia or ST segment elevations. His skin and integument was warm and dry. His belly was soft and supple with no pulsatile masses or bruits. There is strong femoral pulses bilaterally. Cognition and mentation he follows simple commands but seems to be somewhat lethargic and somnolent. Again he follows all commands and does not show any focal neurological deficits. Does not have any nuchal rigidity or meningeal irritation. Denies any neck pain. Constitutional Vital Signs, click to edit/add: Last Vital Signs Temp 97.6 F 05/03/24 16:42 Pulse 62 05/03/24 16:40 Resp 14 05/03/24 16:40 BP 105/54 05/03/24 16:40 Pulse Ox 98 05/03/24 16:40 O2 Del Method Nasal Cannula 05/03/24 15:31 O2 Flow Rate 2 05/03/24 15:31 Course Vital Signs Vital signs: Vital Signs Pulse Rate 70 05/03/24 15:14 Respiratory Rate 18 05/03/24 15:14 Blood Pressure 79/42 L 05/03/24 15:14 Pulse Oximetry 95 05/03/24 15:14 Oxygen Delivery Method Nasal Cannula 05/03/24 15:14 Oxygen Delivery Flow Rate 2 05/03/24 15:14 Temperature 97.6 F 05/03/24 16:42 Pulse Rate 62 05/03/24 16:40 Respiratory Rate 14 05/03/24 16:40 Blood Pressure 105/54 05/03/24 16:40 Pulse Oximetry 98 05/03/24 16:40 Oxygen Delivery Method Nasal Cannula 05/03/24 15:31 Oxygen Delivery Flow Rate 2 05/03/24 15:31 MDM - Fall MDM Narrative Medical decision making narrative: Patient presents with a history of possible bradycardia and possible hypotension but there was a question about the accuracy of equipment at the assisted living facility. When squad arrived his vital signs have normalized and are still relatively normal here. On the rest laboratory testing shows a marked increase in his BUN and creatinine from when he was here 3 days ago. Additionally his white blood cell count is elevated. Lactate levels are up and we put him in fluids sepsis resuscitation. We cannot find a source of infection with both his urinalysis and chest x-ray being normal. He has no respiratory distress and chest x-ray is clear I do not believe he has any pneumonia infiltrates or process rather. Blood cultures are done. His vitals remained stable at the time of this note. Case was discussed with the on-call hospitalist. I believe he needs to be admitted for ongoing supportive care and fluid resuscitation. Repeat troponin levels will be done the initial 1 was negative. His BNP is negative as well. Lab Data Labs: Lab Results 05/03/24 05/03/24 Range/Units 15:25 17:05 WBC 16.6 H (4.0-11.0) 10^3/uL RBC 4.32 L (4.70-6.10) 10^6/uL Hgb 13.4 L (14.0-18.0) g/dL Hct 40.7 L (42.0-54.0) % MCV 94.2 H (80.0-94.0) fL MCH 31.0 (25.9-34.0) pg MCHC 32.9 (29.9-35.2) g/dL RDW 13.6 (11.0-15.0) % Plt Count 256 (150-450) 10^3/uL MPV 12.7 (9.5-13.5) fL Neut % (Auto) 73.3 (43.0-75.0) % Lymph % (Auto) 18.6 L (20.5-60.0) % [place] % (Auto) 6.3 (1.7-12.0) % Eos % (Auto) 1.1 (0.9-7.0) % Baso % (Auto) 0.4 (0.2-2.0) % Neut # (Auto) 12.2 H (1.4-6.5) 10^3/uL Lymph # (Auto) 3.1 (1.2-3.8) 10^3/uL [place] # (Auto) 1.1 H (0.3-0.8) 10^3/uL Eos # (Auto) 0.2 (0.0-0.7) 10^3/uL Baso # (Auto) 0.1 (0.0-0.1) 10^3/uL Abs Immat Gran (auto) 0.05 H (0.00-0.03) 10^3/uL Imm/Tot Granulo (auto) 0.3 (0.0-0.5) % VBG pH 7.270 L (7.330-7.430) VBG pCO2 45.2 (40.0-52.0) mmHg Sodium 143 (136-145) mmol/L Potassium 4.1 (3.5-5.1) mmol/L Chloride 107 (98-107) mmol/L Carbon Dioxide 22.9 (21.0-32.0) mmol/L Anion Gap 17.2 BUN 31.0 H (7.0-18.0) mg/dL Creatinine 2.16 H (0.70-1.30) mg/dL Est GFR ( Amer) 37 L (>=60) Est GFR (Non-Af Amer) 31 L (>=60) BUN/Creatinine Ratio 14.4 Glucose 119 H (74-106) mg/dL Lactate 5.6 H* (0.4-2.0) mmol/L Calcium 9.2 (8.5-10.1) mg/dL Total Bilirubin 0.5 (0.2-1.0) mg/dL AST 18 (15-37) U/L ALT 25 (16-63) U/L Alkaline Phosphatase 93 (46-116) U/L Troponin I High Sens 6.6 (4.0-76.1) pg/mL NT-Pro-B Natriuret Pep 167.0 (<=900.0) pg/mL Total Protein 7.3 (6.4-8.2) g/dL Albumin 3.2 L (3.4-5.0) g/dL Globulin 4.1 g/dL Albumin/Globulin Ratio 0.8 Urine Color Dk. yellow (YELLOW) Urine Clarity Clear (CLEAR) Urine pH 5.5 (5.0-9.0) Ur Specific [place] >=1.030 A (1.005-1.025) Urine Protein Trace (NEG/TRACE) mg/dL Urine Glucose (UA) Negative (NEGATIVE) mg/dL Urine Ketones 15 A (NEGATIVE) mg/dL Urine Occult Blood Negative (NEGATIVE) Urine Nitrite Negative (NEGATIVE) Urine Bilirubin Moderate A (NEGATIVE) Urine Urobilinogen 1.0 (0.2-1.0) EU/dL Ur Leukocyte Esterase Negative (NEGATIVE) Discharge Plan Discharge Chief Complaint: Fall Clinical Impression: Altered mental status Patient Disposition: Admitted as Observation Time of Disposition Decision: 18:34 Prescriptions / Home Meds: No Action clopidogrel 75 mg tablet 75 mg PO QDAY carvedilol [Coreg] 12.5 mg tablet 12.5 mg PO BID Rx Instructions: must administer with a meal/food aspirin 81 mg capsule 81 mg PO DAILY Hold Instructions: pt stopped taking celecoxib 200 mg Capsule 200 mg PO DAILY Qty: 30 11RF atorvastatin 40 mg tablet 40 mg PO QDAY nicotine 21 mg/24 hr patch 24 hour 1 patch transdermal Q24H mirtazapine 45 mg tablet 45 mg PO .QHS ezetimibe 10 mg tablet 10 mg PO DAILY cyclobenzaprine 10 mg tablet 10 mg PO TID PRN (Reason: muscle spasm) divalproex 500 mg tablet,delayed release (DR/EC) 500 mg PO Q12H famotidine 40 mg tablet 40 mg PO DAILY tamsulosin 0.4 mg capsule 0.4 mg PO DAILY tramadol 50 mg tablet 100 mg PO QID PRN (Reason: pain) candesartan 8 mg tablet 8 mg PO DAILY gabapentin 600 mg tablet 600 mg PO QID primidone 50 mg tablet 50 mg PO DAILY Print Language: Irish Referrals: Norbert Jiang MD [Primary Care Provider] - 1 week
--- NOTE | 2024-05-03 15:30 | XR_ITS ---
The [address] [address] Patient Name: TAYLOR MCCLELLAN MRN: [id number] date: 1955 Sex: M Assigned Patient Location: ER Current Patient Location: ED.MAIN Accession/Order Number: [id number] Exam Date: 05/03/2024 15:45 Report Date: 05/03/2024 16:44 At the request of: GUANAKITO LOVELL Procedure: XR chest 1V EXAM: XR chest 1V HISTORY: Bradycardia COMPARISON: 04/29/2024 and earlier chest x-ray. CT 04/14/2024. TECHNIQUE: AP portable supine chest x-ray FINDINGS: Opaque device obscures portions mediastinum. Cardiac silhouette enlarged increased interstitial markings suggesting vascular congestion and mild early heart failure. No focal consolidation or alveolar edema. No definite pleural effusion. No pneumothorax no displaced fracture seen. XR/XR chest 1V IMPRESSION: Increased lung markings consistent with vascular engorgement congestion, correlate for mild heart failure. Electronically authenticated by: VLADIMIR CLAYTON Date: 05/03/2024 16:44
--- NOTE | 2024-05-03 15:30 | CT_ITS ---
The [address] [address] Patient Name: TAYLOR MCCLELLAN MRN: [id number] date: 1955 Sex: M Assigned Patient Location: ER Current Patient Location: ER Accession/Order Number: [id number] Exam Date: 05/03/2024 15:47 Report Date: 05/03/2024 16:19 At the request of: GUANAKITO LOVELL Procedure: CT head/brain wo con EXAM: CT head/brain wo con HISTORY: Fall, change mental status COMPARISON: CT brain 04/29/2024 TECHNIQUE: Axial CT scans through the head were obtained without IV contrast administration. Dose reduction techniques were achieved by using: automated exposure control and/or adjustment of mA and /or kV according to patient size and/or use of iterative reconstruction technique. FINDINGS: There is no evidence of acute intracranial hemorrhage or abnormal extra-axial fluid collection. No mass effect or midline shift is seen. There is no evidence of large acute territorial infarction. There is no hydrocephalus. There are remote lacunar infarcts in right thalamus, bilateral basal ganglia and right centrum semiovale. There is moderate cerebral volume loss. To the limit of CT, the posterior fossa appears unremarkable. No definite acute fracture or acute soft tissue abnormality identified. Stable small calcified scalp nodule at the level of vertex. The visualized orbits show no abnormality. The visualized paranasal sinuses show no air-fluid level. Mastoid air cells are clear. CT/CT head/brain wo con IMPRESSION: No CT evidence of acute intracranial abnormality. Stable chronic changes. Electronically authenticated by: ANNABEL SRIVASTAVA Date: 05/03/2024 16:19
--- NOTE | 2024-05-03 15:30 | ECG_ITS ---
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
[2024-05-03 15:58] LABS: Basophils Absolute Auto 0.1 10^3/uL (0.0-0.1); Basophils Percent Auto 0.4 % (0.2-2.0); Eosinophils Absolute Auto 0.2 10^3/uL (0.0-0.7); Eosinophils Percent Auto 1.1 % (0.9-7.0); Hematocrit 40.7 % (42.0-54.0); Hemoglobin 13.4 g/dL (14.0-18.0); Immature Granulocytes Abs Auto 0.05 10^3/uL (0.00-0.03); Immature Granulocytes Pct Auto 0.3 % (0.0-0.5); Lymphocytes Absolute Auto 3.1 10^3/uL (1.2-3.8); Lymphocytes Percent Auto 18.6 % (20.5-60.0); Mean Corpuscular HGB Conc 32.9 g/dL (29.9-35.2); Mean Corpuscular Volume 94.2 fL (80.0-94.0); Mean Platelet Volume 12.7 fL (9.5-13.5); Monocytes Absolute Auto 1.1 10^3/uL (0.3-0.8); Monocytes Percent Auto 6.3 % (1.7-12.0); Neutrophils Absolute Auto 12.2 10^3/uL (1.4-6.5); Neutrophils Percent Auto 73.3 % (43.0-75.0); Platelet Count 256 10^3/uL (150-450); Red Blood Count 4.32 10^6/uL (4.70-6.10); Red Cell Distribution Width 13.6 % (11.0-15.0); White Blood Count 16.6 10^3/uL (4.0-11.0)
[2024-05-03 16:06] LABS: PCO2 VBG 45.2 mmHg (40.0-52.0)
[2024-05-03 16:23] LABS: Troponin I High Sensitivity 6.6 pg/mL (4.0-76.1)
[2024-05-03 16:28] LABS: Alanine Aminotransferase 25 U/L (16-63); Albumin Globulin Ratio 0.8; Albumin Level 3.2 g/dL (3.4-5.0); Alkaline Phosphatase 93 U/L (46-116); Anion Gap 17.2; Aspartate Amino Transferase 18 U/L (15-37); BUN Creatinine Ratio 14.4; Bilirubin Total 0.5 mg/dL (0.2-1.0); Calcium 9.2 mg/dL (8.5-10.1); Carbon Dioxide 22.9 mmol/L (21.0-32.0); Chloride 107 mmol/L (98-107); Estimated GFR (African America 37 (>=60); Estimated GFR (Non-African Ame 31 (>=60); Globulin 4.1 g/dL; Glucose 119 mg/dL (74-106); Potassium 4.1 mmol/L (3.5-5.1); Sodium 143 mmol/L (136-145); Total Protein 7.3 g/dL (6.4-8.2)
[2024-05-03 16:32] LABS: Lactate/Lactic Acid 5.6 mmol/L (0.4-2.0)
[2024-05-03] MEDS: 0.9 % SODIUM CHLORIDE 1,000 ML 1000 ML IV ×2 (16:40→17:20)
[2024-05-03 17:15] LABS: Bilirubin Urine MODERATE (NEGATIVE); Blood Urine NEGATIVE (NEGATIVE); Clarity Urine CLEAR (CLEAR); Color Urine DK. YELLOW (YELLOW); Glucose Urine UA NEGATIVE (NEGATIVE); Ketones Urine 15 mg/dL (NEGATIVE); Leukocyte Esterase Urine NEGATIVE (NEGATIVE); Nitrite Urine NEGATIVE (NEGATIVE); Protein Urine TRACE mg/dL (NEG/TRACE); Specific Gravity Urine >=1.030 (1.005-1.025); pH Urine 5.5 (5.0-9.0)
[2024-05-03 17:20] LABS: Urine Microscopic Indicated NO
[2024-05-03 19:04] LABS: Lactate/Lactic Acid 1.3 mmol/L (0.4-2.0)
[2024-05-03 19:36] LABS: Creatine Kinase 28 U/L (39-308)
--- OUTSIDE RECORDS SUMMARY | 2024-05-03 20:16 | XMS_ITS ---
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 Crude Unit Name Role Phone DOTTIE DE LEÓN Attending Unavailable DOTTIE DE LEÓN Attending Unavailable GARRY CASTILLO Admitting Unavailable GARRY CASTILLO Attending Unavailable GARRY CASTILLO Referring Unavailable GENESIS JIANG Primary Care Unavailable GENESIS JIANG Referring Unavailable GENESIS JIANG Primary Care Unavailable GENESIS JIANG Referring Unavailable GENESIS JIANG Primary Care Unavailable SUSAN URIOSTEGUI Referring Unavailable DAR SANFORD Primary Care Unavailabl e Purpose PROBLEMS DATE TYPE CONDITION / CODE ATTENDING STATUS [facility] 04/30/2024 Unknown Pain, unspecifie d / R52(ICD-10) NA Active [facility] 04/29/2024 Unknown [facility] ER Stro ke consult / UNK(Unknown) NA Active [facility] 02/18/2024 Admitting Diagnosis Abnormal result of other cardiovascular function study / R94.39(ICD-10) GARRY CASTILLO Active [facility] 02/14/2024 Admitting Diagnosis Atherosclerotic heart disease of [place] coronary artery without angina pectoris / I25.10(ICD-10) JONATHAN GARRY [facility] 02/14/2024 Admitting Diagnosis Occlusion and stenosis of unspecified carotid artery / I65.29(ICD-10) JONATHAN [facility] 02/14/2024 Admitting Diagnosis Essential (primary) hypertension / I10(ICD-10) JONATHAN [facility] 02/14/2024 Admitting Diagnosis Type 2 diabetes mellitus with other circulatory complications / E11.59(ICD-10) JONATHAN [facility] 02/14/2024 Admitting Diagnosis Mixed hyperlipidemia / E78.2(ICD-10) JONATHAN [facility] 02/14/2024 Admitting Diagnosis Presence of aortocoronary bypass graft / Z95.1(ICD-10) JONATHAN [facility] 02/14/2024 Admitting Diagnosis Occlusion and stenosis of right carotid artery / I65.21(ICD-10) GUY [facility] 02/17/2024 Admitting Diagnosis Encounter for other preprocedural examination / Z01.818(ICD-10) GUY [facility] 11/10/2023 Admitting diagnosis Unspecified symptoms and signs involving the genitourinary system / R39.9(ICD-10) NA Active [facility] PROCEDURES No Procedure Records Found VITAL SIGNS No Vital Signs Records Found RESULTS PROGRESS Observed: 03/26/2024 11:00 AM Status: COMPLETED Source: [facility] REPOSITORY [facility] Cardiology Clinic Note Chief Complaint: New patient here to establish care. Ref from Dr. Jiang for abnormal stress test. Patient has hx of CABG at [facility] years ago. Stress test was ordered for pre-op clearance prior to back surgery. His son says he takes Plavix for TIA 3-4 years ago. Patient denies chest pain, SOB, palpitations, and lightheadedness/syncope. HPI: Taylor Mcclellan is a 68 y.o. male With a history of extensive vascular disease including coronary artery bypass graft surgery diagnosed in 2008 s/p single-vessel bypass to an occluded right [...] Coronary artery disease, PVD (peripheral vascular disease) ([facility]), and Stroke ([facility]). Surgical History He has a past surgical [...] 4. Abnormal, low ejection fraction of 48% ROCEDURE PHYSICIAN: Garry Castillo MD Clinical Presentation: 68 y.o. Male with history of CAD status post single-vessel CABG with free CURLY to right PDA, hypertension, type 2 diabetes mellitus with poor glycemic control, CKD stage III, obesity, carotid artery stenosis status post carotid artery stent and also restenosis of the stent, hyperlipidemia. Patient was evaluated prior to a potential back surgery and had a cardiac stress test which was abnormal. He was evaluated by my colleague Dr. De León, [place] cardiology and recommended for coronary angiogram to assess CAD status. Final Impression: 1) coronary angiogram revealed stable CAD. The RCA is 100% occluded and the CURLY to right PDA is patent. The remainder of the coronary arteries have mild to moderate CAD. Plan: 1) optimal med therapy for CAD 2) Aspirin and plavix long-term DAPT 3) given polyvascular disease (CAD/CABG/carotid stenosis) and diabetes, we should focus on aggressive medical management. His lipids were elevated on last check. LDL about 100 mg/dL and non-HDL cholesterol about 150 mg/dL. I increase atorvastatin to 80 mg daily and added ezetimibe 10 mg daily. Check lipid profile in the outpatient setting and aim for LDL less than 50 mg/dL and [id number] less than 70 mg/dL 4) last hemoglobin A1c was significantly elevated. Please evaluate for GLP-1 agonist such as Ozempic and/or SGLT2 inhibitor in the outpatient setting and optimize diabetes treatment. 5) Although his CAD is stable, I recommend focusing on diabetic control and getting hemoglobin A1c to 7% or less prior to considering any elective surgery. 6) start ARB for diabetes and kidney protection. I started candesartan 8 mg daily. Check labs in 1 week for monitoring of creatinine and potassium. Small increase in Creatinine is acceptable with initiation of ARB or SGLT2 inhibitor. 7) outpatient follow-up with Dr. De León, [place] cardiology at our [place] office, and Dr. Jiang for primary care Procedures Performed: coronary and bypass graft angiogram, conscious sedation 22 min, ultrasound guidance for vascular access Assessment: Coronary artery disease, history of coronary [...] Essential hypertension Preoperative evaluation; back surgery Plan: The patient is at acceptable risk to proceed with surgery with no further cardiovascular testing needed at this time; recommend strict heart rate and blood pressure control and avoidance of major fluid shifts Continue optimal medical therapy for coronary artery diseaseIncluding aspirin & Plavix (DAPT), high intensity statin therapy, a beta-joseph and an angiotensin receptor joseph started by Dr. Castillo If the patient is diabetic, he ought to be on an SGLT2 inhibitor or GLP-1 receptor agonist Return to clinic in 6 months or sooner should problems arise Dottie De León MD, MPH, FACC, [facility], [facility] Interventional Cardiology Pager Email: [email or web address] OFFICE VISIT Observed: 03/26/2024 11:00 AM Status: COMPLETED Source: [facility] REPOSITORY [id number] Taylor Mcclellan Shefali 03/1956 M Date Provider Department Center 03/26/2024 271-DOTTIE DE LEÓN [facility] Family History Problem Relation Age of Onset No Known Problems Mother No Known Problems Father Family Status - Relation Status Age at Mother Father Level of Service:27979 [place] OFFICE/OUTPATIENT ESTABLISHED MOD MDM 30 MIN NURSNOTE Observed: 02/25/2024 1:01 PM Status: COMPLETED Source: [facility] REPOSITORY RN educated pt on d/c instru ctions. RN encouraged pt to voice any questions or concerns. Pt verbalizes no questions or concerns at this time. Pt was wheeled off of unit with all of belongings. ANES Observed: 02/25/2024 9:41 AM Status: COMPLETED Source: [facility] REPOSITORY Patient: Taylor Mcclellan Procedure Information Date/Time: 02/25/24 1030 Procedure: Coronary angiography (Left) - andrea Location: [facility] SALESPERSON RECREATIONAL VEHICLES 3 / [facility] (Cath) Providers: Garry Castillo MD Clinical information reviewed: Allergies Meds [...] consented to blood products. Additional Equipment Requests HP Observed: 02/25/2024 9:41 AM Status: COMPLETED Source: [facility] REPOSITORY H&P reviewed. The patient wa s examined and there are no changes to the H&P. ORDERS ONLY Observed: 02/20/2024 12:00 AM Status: COMPLETED Source: [facility] REPOSITORY [id number] Taylor Mcclellan 03/1956 [facility] Provider Department Center 02/20/2024 Awais-ZANDRA KOVACS [facility] [place] [facility] Family History Problem Relation Age of Onset No Known Problems Mother No Known Problems Father Family Status - Relation Status Age at Mother Father OFFICE VISIT Observed: 02/17/2024 2:00 PM Status: COMPLETED Source: [facility] REPOSITORY [id number] Taylor Mcclellan 03/1956 Provider Department Center 02/17/2024 271-DOTTIE DE LEÓN [facility] Family History Problem Relation Age of Onset No Known Problems Mother No Known Problems Father Family Status - Relation Status Age at Mother Father Level of Service:93434 [place] OFFICE/OUTPATIENT NEW HIGH MDM 60 MINUTES PROGRESS Observed: 02/17/2024 2:00 PM Status: COMPLETED Source: [facility] REPOSITORY [facility] Cardiology Clinic Note Chief Complaint: New patient here to establish care. Ref from Dr. Jiang for abnormal stress test. Patient has hx of CABG at [facility] years ago. Stress test was ordered [...] catheterization. I will not be in the Emergency Response Technician for the next 3 to 4 weeks; we will schedule the procedure with one of my colleagues in the upcoming week or two: coronary and graft angiography via right common femoral approach. We will order carotid Dopplers given his history of carotid stent, restenosis and subsequent balloon angioplasty Continue current medical therapy in the form of dual antiplatelet therapy, moderate intensity statin therapy, and a beta-joseph. Given reduced ejection fraction, would recommend addition of a RAAS inhibitor, an SGLT2 inhibitor and spironolactone; these can be discussed after his cardiac catheterization. Further recommendations and risk assessment for his planned back surgery will be pending the results of his cardiac catheterization. Return to clinic in 3 to 4 months or sooner should problems arise Dottie De León MD, MPH, [facility], [facility], [facility] Interventional Cardiology Pager Email: [email or web address] HP Observed: 02/17/2024 2:00 PM Status: COMPLETED Source: [facility] REPOSITORY [facility] Cardiology Clinic Note Chief Complaint: New patient here to establish care. Ref from Dr. Jiang for abnormal stress test. Patient has hx of CABG at [facility] years ago. Stress test was ordered [...] catheterization. I will not be in the Emergency Response Technician for the next 3 to 4 weeks; we will schedule the procedure with one of my colleagues in the upcoming week or two: coronary and graft angiography via right common femoral approach. We will order carotid Dopplers given his history of carotid stent, restenosis and subsequent balloon angioplasty Continue current medical therapy in the form of dual antiplatelet therapy, moderate intensity statin therapy, and a beta-joseph. Given reduced ejection fraction, would recommend addition of a RAAS inhibitor, an SGLT2 inhibitor and spironolactone; these can be discussed after his cardiac catheterization. Further recommendations and risk assessment for his planned back surgery will be pending the results of his cardiac catheterization. Return to clinic in 3 to 4 months or sooner should problems arise Dottie De León MD, MPH, [facility], [facility], [facility] Interventional Cardiology Pager Email: [email or web address] ORDERS ONLY Observed: 02/17/2024 12:00 AM Status: COMPLETED Source: [facility] REPOSITORY [id number] Taylor Mcclellan M Date Provider Department Center 02/17/2024 DIRK [facility] Family History Problem Relation Age of Onset No Known Problems Mother No Known Problems Father Family Status - Relation Status Age at Mother Father URINALYSIS W/ MICRO Collected: 11/10/19 24 5:45 AM Status: F Source: [facility] REPOSITORY TYPE CODE TESTS RESULT OUT OF RANGE REFERENCE UNITS LAB UCO(LOINC) Color Yellow YEL LAB UTU(LOINC) Clarity, Urine Clear CLEAR LAB UGL(LOINC) Glucose,Semi-q nt,Ur NEGATIVE NEG mg/dL LAB UBI(LOINC) Bilirubin, SemiQt,Ur NEGATIVE NEG LAB UKE(LOINC) Ketones, Urine NEGATIVE NEG mg/dL LAB USG(LOINC) Spec. [place],Ur 1.015 1.010-1.020 LAB UHB(LOINC) Blood, Urine NEGATIVE NEG LAB UPH(LOINC) PH,Ur 7.0 5.0-9.0 LAB UPR(LOINC) Protein, Semi-qnt,Ur NEGATIVE NEG mg/dL LAB UUR(LOINC) Urobilinogen,U r Normal 0.0-1.0 EU/dL LAB UNI(LOINC) Nitrite,Ur NEGATIVE NEG LAB ULE(LOINC) Leukocyte Esterase NEGATIVE NEG LAB UWBC(LOINC) Urine WBC's 2 TO 5 0-5 /HPF LAB URBC(LOINC) Urine RBC's 0 TO 2 0-2 /HPF LAB EPITH(LOINC) Epithelial cells 0 TO 2 0-5 /HPF LAB BACT(LOINC) Bacteria TRACE Abnormal NONE LAB MUC(LOINC) Mucus Strands TRACE Abnormal NONE Performed By: #### UAMIC ### # [address] [place] [address] Enrollment Management Coordinator: George Howell MD CULT,URINE Observed: 11/10/2023 5:45 AM Status: F Source: [facility] REPOSITORY Specimen Description .CLEAN CATCH URINE Culture ENTEROCOCCUS FAECALIS 10 to 50,000 CFU/ML Report Status FINAL 11/12/2023 SUSCEPTIBILITY Organism ENTEROCOCCUS FAECALIS Method CASSIE Ampicillin <=2 SUSCEPTIBLE Ciprofloxacin <=0.5 SUSCEPTIBLE Levofloxacin 0.5 SUSCEPTIBLE Nitrofurantoin <=16 SUSCEPTIBLE Tetracycline >=16 RESISTANT Vancomycin 1 SUSCEPTIBLE Performed By: #### URC #### [facility] [address] [place] [address] Enrollment Management Coordinator: Spencer Tapia MD [address] [place] [address] Enrollment Management Coordinator: George Howell MD ALLERGIES DATE TYPE / CODE NAME / CODE REACTION SEVERITY SOURCE 11/29/2021 DRUG INGREDI~NON- CBORD/354302 003(SNOMED CT) METFORMIN [facility] 01/10/2021 DRUG INGREDI~NON- CBORD/889978 003(SNOMED CT) SUCCINYLCHOLINE Anaphylaxis High [facility] 01/10/2021 DRUG INGREDI~NON- CBORD/115559 003(SNOMED CT) CITALOPRAM Other ( See Comments) [facility] 01/10/2021 SYSTEMIC~Addison d/175736391( SNOMED CT) OTHER Other ( See Comments) [facility] 01/10/2021 DRUG INGREDI/4195 89693(SNOMED CT) CITALOPRAM Other~Unknown [facility] 03/04/2018 DRUG INGREDI~NON- CBORD/236069 003(SNOMED CT) AMITRIPTYLINE [facility] 03/04/2018 DRUG INGREDI~NON- CBORD/316381 003(SNOMED CT) FENTANYL [facility] 06/03/2017 DRUG INGREDI~NON- CBORD/681865 003(SNOMED CT) VENLAFAXINE Other ( See Comments) [facility] 12/26/2016 DRUG INGREDI/4195 53081(SNOMED CT) FENTANYL Unknown~Other [facility] 05/18/2014 DRUG INGREDI/4195 66238(SNOMED CT) AMITRIPTYLINE Other~Unknown [facility] 05/13/2014 DRUG INGREDI/4195 46313(SNOMED CT) VENLAFAXINE Other~Unknown [facility] 09/08/2004 DRUG INGREDI/4195 55906(SNOMED CT) SUCCINYLCHOLINE Anaphylaxis~Unknown ~Other High [facility] ENCOUNTERS ADMIT/DISCHARGE ACCOUNT NUMBER ADMITTING ENCOUNTER CLASS LOCATION SOURCE 04/30/2024 [id number] Ambulatory Building:Un kn own [facility] 04/30/2024 [id number] Ambulatory Building:Un own [facility] 04/29/2024 [id number] Emergency Buildin 23 1Room: TELESTROKEBed : TELESTROKE BED [facility] 03/26/2024/03/26/20 24 [id number] Ambulatory Building:[facility] 02/25/2024 [id number] Ambulatory Building:[facility] 02/25/2024/02/25/20 24 [id number] GARRY CASTILLO Ambulatory Buildin Room: [facility] VASCULAR POOLBed: [address] [place] [address] 02/17/2024/02/17/20 24 [id number] [facility]/10/2023/11/10/19 24 [id number] Ambulatory Building:[facility] FUNCTIONAL STATUS No Functional Status Records Found EQUIPMENT No Equipment Records Found PAYERS ENCOUNTER GUARANTOR PAYER SUBSCRIBER SOURCE 04/30/2024 TAYLOR MORSEINEEDOB: [facility] [address], [place] [address]Yah: (HP) Primary Insurance:BCBS OUT OF STATE TRADITIONALPolicy Number: [id number] Date:2009-09-092018-12-22 MAHIN MOMINEEDOB: [id number] [facility] [address], [place] [address] [facility] 04/30/2024 Secondary Insura nce:[facility] HMO/PPO/TRUSTPolicy Number: [id number] Date:2011-09-09 MAHIN Diaz MOMINEEDOB: [id number] [facility] [address], [place] [address]Yoq: (HP) [facility] 04/30/2024 Tertiary Insurance:MEDICARE PART A & BPolicy Number: [id number] Date:2021-09-09 TAYLOR MORSEINEEDOB: [id number] [facility] [address], [place] [address]Mcb: (HP) [facility] 04/30/2024 TAYLOR Meehan MOMINEEDOB: [facility] [address], [place] [address]Tth: (HP) Primary Insurance:BCBS OUT OF STATE TRADITIONALPolicy Number: [id number] Date:2009-09-092018-12-22 MAHIN MOMINEEDOB: [id number] [facility] [address], [place] [address] [facility] 04/30/2024 Secondary Insura nce:[facility] HMO/PPO/TRUSTPolicy Number: [id number] Date:2011-09-09 MAHIN Diaz MOMINEEDOB: [id number] [facility] [address], [place] [address]Ypt: (HP) [facility] 04/30/2024 Tertiary Insurance:MEDICARE PART A & BPolicy Number: [id number] Date:2021-09-09 TAYLOR Meehan MOMINEEDOB: [id number] [facility] [address], [place] [address]Bwx: (HP) [facility] 04/29/2024 TAYLOR Meehan MOMINEEDOB: [facility] [address], [place] [address]Zeg: (HP) Primary Insurance:[facility] Number: [id number] Date:2009-09-092018-12-15 MAHIN MOMINEEDOB: [id number] [facility] [address], [place] [address] [facility] 04/29/2024 Secondary Insura nce:[facility] HMO/PPO/TRUSTPolicy Number: [id number] Date:2011-09-09 MAHIN Diaz MOMINEEDOB: [id number] [facility] [address], [place] [address]Abc: (HP) [facility] 04/29/2024 Tertiary Insurance:MEDICARE PART A & BPolicy Number: [id number] Date:2021-09-09 TAYLOR Meehan MOMINEEDOB: [id number] [facility] [address], [place] [address]Qht: (HP) [facility] 03/26/2024 Primary Insurance:MEDICAREPolicy Number: [id number] Date:4729-56-37Udvs Name:Medicare TAYLOR Meehan MOMINEEDOB: [id number] [place] [address] [facility] 03/26/2024 Secondary Insura nce:BCBS MIPolicy Number: [id number] Date:2011-09-09 MAHIN MOMINEEDOB: [id number] [place] [address] [facility] 02/25/2024 Primary Insurance:MEDICAREPolicy Number: [id number] Date:0455-09-25Hqjl Name:Medicare TAYLOR Meehan MOMINEEDOB: [id number] [place] [address] [facility] 02/25/2024 Secondary Insura nce:BCBS MIPolicy Number: [id number] Date:2011-09-09 MAHIN MOMINEEDOB: [id number] [place] [id number] [facility] 02/25/2024 Primary Insurance:MEDICAREPolicy Number: [id number] Date:7672-06-59Fwkg Name:Medicare TAYLOR Meehan MOMINEEDOB: [id number] [place] [address] [facility] 02/25/2024 Secondary Insurance:[employer] OHIOPolicy Number: [id number] Date:2024-02-13 TAYLOR Meehan MOMINEEDOB: [id number] [place], [place] [address] [facility] 02/17/2024 Primary Insurance:MEDICAREPolicy Number: [id number] Date:0453-52-84Duor Name:Medicare TAYLOR Meehan MOMINEEDOB: [id number] [facility] [address] [place], [place] [address] [facility] 02/17/2024 Secondary Insurance:ANTHEM BS OHIOPolicy Number: [id number] Date:2024-02-13 TAYLOR eMehan MOMINEEDOB: [id number] [address] SOCIAL HISTORY No Social History Records Found FAMILY HISTORY No Family History Records Found No Status Records Found ADVANCE DIRECTIVES No Advanced Directives Records Found INFORMATION SOURCE DATE CREATED AUTHOR AUTHOR'S SALMA ATSTEPHIE 05/03/2024 [facility]
[2024-05-03] MEDS: 0.9 % SODIUM CHLORIDE 1,000 ML 100 ML IV (21:08)
[2024-05-03] MEDS: HEPARIN SODIUM (PORCINE) 5,000 UNIT/ML VIAL 5000 UNIT SUBQ (21:08)
[2024-05-04] VITALS (10 sets, daily range): BP systolic 152–167; BP diastolic 78–89; PULSE 66–83; TEMP 36.4–36.6; O2SAT 92–95
[2024-05-04 06:12] LABS: Basophils Absolute Auto 0.1 10^3/uL (0.0-0.1); Basophils Percent Auto 0.6 % (0.2-2.0); Eosinophils Absolute Auto 0.2 10^3/uL (0.0-0.7); Eosinophils Percent Auto 2.7 % (0.9-7.0); Hematocrit 41.6 % (42.0-54.0); Hemoglobin 13.4 g/dL (14.0-18.0); Immature Granulocytes Abs Auto 0.02 10^3/uL (0.00-0.03); Immature Granulocytes Pct Auto 0.2 % (0.0-0.5); Lymphocytes Absolute Auto 2.4 10^3/uL (1.2-3.8); Lymphocytes Percent Auto 28.9 % (20.5-60.0); Mean Corpuscular HGB Conc 32.2 g/dL (29.9-35.2); Mean Corpuscular Hemoglobin 30.7 pg (25.9-34.0); Mean Corpuscular Volume 95.2 fL (80.0-94.0); Mean Platelet Volume 11.9 fL (9.5-13.5); Monocytes Absolute Auto 0.6 10^3/uL (0.3-0.8); Monocytes Percent Auto 6.9 % (1.7-12.0); Neutrophils Percent Auto 60.7 % (43.0-75.0); Platelet Count 186 10^3/uL (150-450); Red Blood Count 4.37 10^6/uL (4.70-6.10); Red Cell Distribution Width 13.8 % (11.0-15.0); White Blood Count 8.3 10^3/uL (4.0-11.0)
[2024-05-04 06:32] LABS: Anion Gap 16.8; Calcium 8.7 mg/dL (8.5-10.1); Chloride 111 mmol/L (98-107); Estimated GFR (African America >60 (>=60); Estimated GFR (Non-African Ame 57 (>=60); Glucose 78 mg/dL (74-106); Potassium 3.8 mmol/L (3.5-5.1); Sodium 145 mmol/L (136-145)
[2024-05-04] MEDS: 0.9 % SODIUM CHLORIDE 1,000 ML 100 ML IV (08:02)
--- NOTE | 2024-05-04 08:17 | P.DS_ITS ---
DS: Providers Provider Date of admission: 05/03/24 20:08 Primary care physician: Norbert Jiang MD DS: Diagnosis Discharge Diagnosis (1) Altered mental status: (2) Weakness: Plan Admission: Significant hypotension with blood pressure 76/42, mild hypoxemia but transient, elevated white blood cell count, elevated BUN/creatinine greater than 2 times normal, positive lactate, elevated specific gravity-this is all consistent with his dehydration. No focal infectious symptoms. Right blood cell count likely more likely demargination Altered mental status: This is likely related to his dehydration. He went through this in the past. Encourage he needs to take at least 32 ounces of liquids that are noncaffeinated the day. Status post fall without significant injury-physical therapy to work with patient at assisted living facility Acute renal failure with creatinine 2 times at his baseline-improved this morning. Saline lock. Encourage p.o. intake of oral liquids not containing caffeine. Sounds like he drinks excessive amounts of caffeine at the assisted living facility Leukocytosis-improved this morning. Monitor as an outpatient Severe degenerative disc disease in the lumbar area-continue with pain medications Admission status: Patient with significant dehydration. Medically necessary treatment likely to span 1 midnight. Observation status. DS: Summary Hospital Course Hospital Course: Patient was admitted overnight with dehydration. Given IV fluids and is back to his normal self. Encouraged increased oral intake of liquids not containing caffeine. Sounds that he drinks excessive amounts of caffeine. Discussed care with son. Would still prefer to keep him at assisted living understanding that as things progress he may require more intensive monitoring. White blood cell count is elevated but no focal infectious etiologies found. I will continue to follow patient while he resides at the assisted living facility. Medications see list. Status at Discharge Overall status at discharge: patient is back to baseline Time Spent with Patient Time attestation: Total time spent providing and/or coordinating discharge services: Time spent: greater than 30 minutes Exam Constitutional Vital Signs, click to edit/add: Last Vital Signs Temp 97.6 F 05/04/24 04:00 Pulse 77 05/04/24 07:57 Resp 19 05/04/24 04:00 BP 156/78 H 05/04/24 04:00 Pulse Ox 92 L 05/04/24 04:00 O2 Del Method Room Air 05/04/24 04:00 O2 Flow Rate 2 05/03/24 15:31 Documenting provider has reviewed patient's vital signs: yes Common normals: no apparent distress Chest Common normals: inspection of chest normal Respiratory Common normals: normal respiratory effort and no retractions Cardio Common normals: regular rate and regular rhythm GI Common normals: Normal to inspection, nondistended, normoactive bowel sounds present, soft to palpation and non-tender Neuro Common normals: CN's II-XII intact bilaterally, moves all extremities and no focal motor deficits; not oriented x3 (Confusion to place) DS: Data Data Completed and Pending Labs on day of discharge: Labs from last 24 hours 05/04/24 05/03/24 05/03/24 06:02 18:30 17:05 WBC 8.3 RBC 4.37 L Hgb 13.4 L Hct 41.6 L MCV 95.2 H MCH 30.7 MCHC 32.2 RDW 13.8 Plt Count 186 MPV 11.9 Neut % (Auto) 60.7 Lymph % (Auto) 28.9 [place] % (Auto) 6.9 Eos % (Auto) 2.7 Baso % (Auto) 0.6 Neut # (Auto) 5.0 Lymph # (Auto) 2.4 [place] # (Auto) 0.6 Eos # (Auto) 0.2 Baso # (Auto) 0.1 Abs Immat Gran (auto) 0.02 Imm/Tot Granulo (auto) 0.2 VBG pH VBG pCO2 Sodium 145 Potassium 3.8 Chloride 111 H Carbon Dioxide 21.0 Anion Gap 16.8 BUN 24.0 H Creatinine 1.26 Est GFR ( Amer) >60 Est GFR (Non-Af Amer) 57 L BUN/Creatinine Ratio 19.0 Glucose 78 Lactate 1.3 Calcium 8.7 Total Bilirubin AST ALT Alkaline Phosphatase Total Creatine Kinase Troponin I High Sens 7.0 NT-Pro-B Natriuret Pep Total Protein Albumin Globulin Albumin/Globulin Ratio Urine Color Dk. yellow Urine Clarity Clear Urine pH 5.5 Ur Specific [place] >=1.030 A Urine Protein Trace Urine Glucose (UA) Negative Urine Ketones 15 A Urine Occult Blood Negative Urine Nitrite Negative Urine Bilirubin Moderate A Urine Urobilinogen 1.0 Ur Leukocyte Esterase Negative 05/03/24 15:25 WBC 16.6 H RBC 4.32 L Hgb 13.4 L Hct 40.7 L MCV 94.2 H MCH 31.0 MCHC 32.9 RDW 13.6 Plt Count 256 MPV 12.7 Neut % (Auto) 73.3 Lymph % (Auto) 18.6 L [place] % (Auto) 6.3 Eos % (Auto) 1.1 Baso % (Auto) 0.4 Neut # (Auto) 12.2 H Lymph # (Auto) 3.1 [place] # (Auto) 1.1 H Eos # (Auto) 0.2 Baso # (Auto) 0.1 Abs Immat Gran (auto) 0.05 H Imm/Tot Granulo (auto) 0.3 VBG pH 7.270 L VBG pCO2 45.2 Sodium 143 Potassium 4.1 Chloride 107 Carbon Dioxide 22.9 Anion Gap 17.2 BUN 31.0 H Creatinine 2.16 H Est GFR ( Amer) 37 L Est GFR (Non-Af Amer) 31 L BUN/Creatinine Ratio 14.4 Glucose 119 H Lactate 5.6 H* Calcium 9.2 Total Bilirubin 0.5 AST 18 ALT 25 Alkaline Phosphatase 93 Total Creatine Kinase 28 L Troponin I High Sens 6.6 NT-Pro-B Natriuret Pep 167.0 Total Protein 7.3 Albumin 3.2 L Globulin 4.1 Albumin/Globulin Ratio 0.8 Urine Color Urine Clarity Urine pH Ur Specific [place] Urine Protein Urine Glucose (UA) Urine Ketones Urine Occult Blood Urine Nitrite Urine Bilirubin Urine Urobilinogen Ur Leukocyte Esterase Discharge Plan Discharge Disposition: Home, Self-Care Discharge Medications: Continued clopidogrel 75 mg tablet 75 mg PO QDAY carvedilol [Coreg] 12.5 mg tablet 12.5 mg PO BID Rx Instructions: must administer with a meal/food aspirin 81 mg capsule 81 mg PO DAILY Hold Instructions: pt stopped taking celecoxib 200 mg Capsule 200 mg PO DAILY Qty: 30 11RF atorvastatin 40 mg tablet 80 mg PO QDAY mirtazapine 45 mg tablet 45 mg PO .QHS ezetimibe 10 mg tablet 10 mg PO DAILY cyclobenzaprine 10 mg tablet 10 mg PO TID divalproex 500 mg tablet,delayed release (DR/EC) 500 mg PO Q12H famotidine 40 mg tablet 40 mg PO DAILY tamsulosin 0.4 mg capsule 0.4 mg PO DAILY tramadol 50 mg tablet 50 mg PO QID PRN (Reason: pain) candesartan 8 mg tablet 8 mg PO DAILY gabapentin 600 mg tablet 600 mg PO QID multivitamin with folic acid [High Potency Multivitamin] 1 tab PO DAILY triamcinolone acetonide 0.1 % cream 1 applic TOPICAL BID docusate sodium 100 mg capsule 100 mg PO .qod acetaminophen 500 mg capsule 500 mg PO TID Activity: resume usual activities as tolerated Diet: advance to your usual diet Diet Detail: needs to drink 32 oz noncaffeine drink a day Print Language: Amharic Patient Instructions: Dehydration (DC) 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 [phone] Discharge Date/Time: 05/04/24 13:58
--- NOTE | 2024-05-04 08:17 | P.HP_ITS ---
HPI H&P: HPI History of Present Illness Chief complaint: Fall, Dehyration Narrative: Patient was seen and evaluated in the emergency room status post fall.Postictal period. Just sounds like he fell. He has been confused more lately. Patient not having significant oral intake other than coffee. In emergency room found to have significant dehydration and was admitted. I saw patient up in the medical surgical floor, he was oriented and knew who I was, did not know where he was, but with his dementia thus not likely for him. Could move all extremities without any issues. States feels good enough to go back to assisted living Opioid HPI Opioid Management Most Recent Pain and Opioid Data: Last Pain Scale 6 05/04/24 13:00 Last Pain Intensity 0 04/30/24 09:44 Last Pain Assessment 05/04/24 13:00 Last MAR Pain Assessment 05/04/24 13:27 Last ORT Total Score 5 05/03/24 20:21 Last ORT Risk Category Moderate Risk 05/03/24 20:21 Ur Phencyclidine Scrn Negative (NEGATIVE) 11/05/23 16:26 Review of Systems ROS Status of ROS 10 or more systems reviewed and unremark able except as noted in history and below PFSH PFS Medical History Weakness ?R53.1 - Weakness (ICD-10) Ambulatory dysfunction ?R26.2 - Difficulty in walking, not elsewhere classified (ICD-10) Fall ?W19.XXXA - Unspecified fall, initial encounter (ICD-10) Chronic low back pain with bilateral sciatica ?M54.41 - Lumbago with sciatica, right side (ICD-10) ?M54.42 - Lumbago with sciatica, left side (ICD-10) ?G89.29 - Other chronic pain (ICD-10) Altered mental status ?R41.82 - Altered mental status, unspecified (ICD-10) Chronic back pain ?M54.9 - Dorsalgia, unspecified (ICD-10) ?G89.29 - Other chronic pain (ICD-10) Orthostatic dizziness ?R42 - Dizziness and giddiness (ICD-10) Accidental fall ?W19.XXXA - Unspecified fall, initial encounter (ICD-10) CAD (coronary artery disease) ?I25.10 - Atherosclerotic heart disease of [place] coronary artery without angina pectoris (ICD-10) Back pain ?M54.9 - Dorsalgia, unspecified (ICD-10) 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 - Fusion of spine, lumbar region (ICD-10) High cholesterol ?E78.00 - Pure hypercholesterolemia, unspecified (ICD-10) Hypertension ?I10 - Essential (primary) hypertension (ICD-10) IDDM (insulin dependent diabetes mellitus) Restless leg syndrome ?G25.81 - Restless legs syndrome (ICD-10) Suicidal ideation ?R45.851 - Suicidal ideations (ICD-10) Sleep apnea ?G47.30 - Sleep apnea, unspecified (ICD-10) Anxiety ?F41.9 - Anxiety disorder, unspecified (ICD-10) Metabolic encephalopathy ?G93.41 - Metabolic encephalopathy (ICD-10) Depression ?F32.A - Depression, unspecified (ICD-10) Acute renal failure ?N17.9 - Acute kidney failure, unspecified (ICD-10) Altered mental status ?R41.82 - Altered mental status, unspecified (ICD-10) Surgical History S/P CABG (coronary artery bypass graft) ?Z95.1 - Presence of aortocoronary bypass graft (ICD-10) History of heart artery stent ?Z95.5 - Presence of coronary angioplasty implant and graft (ICD-10) Family History Mother Family history of myocardial infarction Social History Within the past year, how often did you have a drink containing alcohol: never Score interpretation: A score less than 4 is consistent with normal alcohol consumption. 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 Known occupational exposures/hazards: No Highest level of school completed/degree received: high school graduate Do you want help with school or training: No Are you now , , , , never or living with a partner: In a typical week, how many times do you talk on the telephone with family, friends, or neighbors: never How often do you get together with friends or relatives: never How often do you attend mu-ism or confucianism services: never Do you belong to any clubs or organizations such as mu-ism groups unions, fraternal or athletic groups, or school groups: no Total score: 1 Score interpretation: A score of less than or equal to 1 indicates the most socially isolated. Little interest or pleasure in doing things: nearly every day Feeling down, depressed, or hopeless: several days Feel stressed/tense/nervous/anxious/difficulty sleeping: very much Life stressors: recent of family or friend Life stressor details: mother and step father a year ago Due to disability, difficulty making decisions: No Do you think of yourself as: straight/heterosexual Gender Identity: male Meds Home Medications and Allergies Home Medications ?Medication ?Instructions ?Recorded ?Confirmed ?Type aspirin 81 mg capsule 81 mg PO DAILY 03/14/23 05/03/24 History carvedilol 12.5 mg tablet (Coreg) 12.5 mg PO BID 03/14/23 05/03/24 History clopidogrel 75 mg tablet 75 mg PO QDAY 03/14/23 05/03/24 History celecoxib 200 mg capsule 200 mg PO DAILY #30 caps 03/15/23 05/03/24 Rx mirtazapine 45 mg tablet 45 mg PO .QHS 11/05/23 05/03/24 History candesartan 8 mg tablet 8 mg PO DAILY 04/14/24 05/03/24 History cyclobenzaprine 10 mg tablet 10 mg PO TID muscle spasm 04/14/24 05/03/24 History divalproex 500 mg tablet,delayed 500 mg PO Q12H 04/14/24 05/03/24 History release ezetimibe 10 mg tablet 10 mg PO DAILY 04/14/24 05/03/24 History famotidine 40 mg tablet 40 mg PO DAILY 04/14/24 05/03/24 History gabapentin 600 mg tablet 600 mg PO QID 04/14/24 05/03/24 History tamsulosin 0.4 mg capsule 0.4 mg PO DAILY 04/14/24 05/03/24 History tramadol 50 mg tablet 50 mg PO QID PRN pain 04/14/24 05/03/24 History atorvastatin 40 mg tablet 80 mg PO QDAY 04/30/24 05/03/24 History acetaminophen 500 mg capsule 500 mg PO TID 05/03/24 05/03/24 History docusate sodium 100 mg capsule 100 mg PO .qod 05/03/24 05/03/24 History multivitamin with folic acid 1 tab PO DAILY 05/03/24 05/03/24 History triamcinolone acetonide 0.1 % 1 applic topical BID rash 05/03/24 05/03/24 History topical cream Allergies Allergy/AdvReac Type Severity Reaction Status Date / Time amitriptyline Allergy Verified 11/05/23 23:51 citalopram Allergy Verified 11/05/23 23:51 fentanyl Allergy Verified 11/05/23 23:51 simvastatin [From Zocor] Allergy Verified 11/05/23 23:51 succinylcholine Allergy Verified 11/05/23 23:51 venlafaxine [From Effexor] Allergy Verified 11/05/23 23:51 Exam Constitutional Vital Signs, click to edit/add: Last Vital Signs Temp 97.6 F 05/04/24 04:00 Pulse 77 05/04/24 07:57 Resp 19 05/04/24 04:00 BP 156/78 H 05/04/24 04:00 Pulse Ox 92 L 05/04/24 04:00 O2 Del Method Room Air 05/04/24 04:00 O2 Flow Rate 2 05/03/24 15:31 Documenting provider has reviewed patient's vital signs: yes Common normals: no apparent distress Chest Common normals: inspection of chest normal Respiratory Common normals: normal respiratory effort and no retractions Cardio Common normals: regular rate and regular rhythm GI Common normals: Normal to inspection, nondistended, normoactive bowel sounds present, soft to palpation and non-tender Neuro Common normals: CN's II-XII intact bilaterally, moves all extremities and no focal motor deficits; not oriented x3 (Confusion to place) Results Labs Labs: Short CBC 05/03/24 05/04/24 Range/Units 15:25 06:02 WBC 16.6 H 8.3 (4.0-11.0) 10^3/uL Hgb 13.4 L 13.4 L (14.0-18.0) g/dL Hct 40.7 L 41.6 L (42.0-54.0) % Plt Count 256 186 (150-450) 10^3/uL BMP 05/03/24 05/04/24 15:25 06:02 Sodium 143 145 Potassium 4.1 3.8 Chloride 107 111 H Carbon Dioxide 22.9 21.0 BUN 31.0 H 24.0 H Creatinine 2.16 H 1.26 Glucose 119 H 78 Calcium 9.2 8.7 Cardiac Enzymes 05/03/24 Range/Units 15:25 Total Creatine Kinase 28 L (39-308) U/L Liver Function 05/03/24 Range/Units 15:25 Total Bilirubin 0.5 (0.2-1.0) mg/dL AST 18 (15-37) U/L ALT 25 (16-63) U/L Alkaline Phosphatase 93 (46-116) U/L Albumin 3.2 L (3.4-5.0) g/dL Urine 05/03/24 Range/Units 17:05 Urine Color Dk. yellow (YELLOW) Urine Clarity Clear (CLEAR) Urine pH 5.5 (5.0-9.0) Ur Specific [place] >=1.030 A (1.005-1.025) Urine Protein Trace (NEG/TRACE) mg/dL Urine Glucose (UA) Negative (NEGATIVE) mg/dL ABG ABG results: 05/03/24 15:25 VBG pH 7.270 L VBG pCO2 45.2 Assessment and Plan Assessment and Plan (1) Altered mental status: (2) Lumbar radiculopathy: Plan Admission: Significant hypotension with blood pressure 76/42, mild hypoxemia but transient, elevated white blood cell count, elevated BUN/creatinine greater than 2 times normal, positive lactate, elevated specific gravity-this is all consistent with his dehydration. No focal infectious symptoms. Right blood cell count likely more likely demargination Altered mental status: This is likely related to his dehydration. He went through this in the past. Encourage he needs to take at least 32 ounces of liquids that are noncaffeinated the day. Status post fall without significant injury-physical therapy to work with patient at assisted living facility Acute renal failure with creatinine 2 times at his baseline-improved this morning. Saline lock. Encourage p.o. intake of oral liquids not containing caffeine. Sounds like he drinks excessive amounts of caffeine at the assisted living facility Leukocytosis-improved this morning. Monitor as an outpatient Severe degenerative disc disease in the lumbar area-continue with pain medications Admission status: Patient with significant dehydration. Medically necessary treatment likely to span 1 midnight. Observation status. Urinary Catheter Management Urinary Catheter Management Urethral: Cath placed during this visit: no
[2024-05-04] MEDS: CLOPIDOGREL BISULFATE 75 MG TABLET PO (10:42)
[2024-05-04] MEDS: LOSARTAN POTASSIUM 25 MG TABLET PO (10:42)
[2024-05-04] MEDS: ACETAMINOPHEN 500 MG TABLET 1000 MG PO (10:42)
[2024-05-04] MEDS: ATORVASTATIN CALCIUM 40 MG TABLET 80 MG PO (10:42)
[2024-05-04] MEDS: EZETIMIBE 10 MG TABLET PO (10:42)
[2024-05-04] MEDS: CARVEDILOL 12.5 MG TABLET PO (10:43)
[2024-05-04] MEDS: CELECOXIB 200 MG CAPSULE PO (10:43)
[2024-05-04] MEDS: TAMSULOSIN HCL 0.4 MG CAPSULE PO (10:43)
[2024-05-04] MEDS: TRAMADOL HCL 50 MG TABLET PO (10:43)
[2024-05-04] MEDS: FAMOTIDINE 20 MG TABLET 40 MG PO (10:43)
[2024-05-04] MEDS: DIVALPROEX SODIUM 500 MG TABLET.DR PO (10:46)
--- NOTE | 2024-05-04 11:17 | RESP.RT ---
Pt being discharged
--- NOTE | 2024-05-04 11:39 | SWNOTE1 ---
Pt did work with therapy today and recommended to return to facility ([facility]) and continue with outpt therapy coming in. Pt did walk 40 feet with physical therapy. ISABELLA let nursing know. ISABELLA reached out to Elisa at [facility] to see if [facility] has transport available.
--- NOTE | 2024-05-04 12:10 | SWNOTE1 ---
[facility] will be here around 3:00-3:30 to transport patient back. ISABELLA already sent over dc med rec. ISABELLA also spoke to Elisa at [facility] and she has coordinated time for apple picker and Eliana and Shanna at [facility] are aware of time.
--- NOTE | 2024-05-04 12:21 | SWNOTE1 ---
SW called pt's son/guardian, Eliu, and updated him on plan and transport time. SW reviewed Medicare Outpatient Observation Notice with pt's son Eliu. Pt's son verbalized understanding and alright with SW signing form that it was reviewed. Original placed in pt's room and copy placed in patient?s chart.
[2024-05-04] MEDS: GABAPENTIN 300 MG CAPSULE 600 MG PO (12:39)
--- NOTE | 2024-05-04 13:21 | SWNOTE1 ---
Elisa at [facility] called and they are able to get pt now. SW updated nursing that transport was on the way.
[2024-05-04] MEDS: ACETAMINOPHEN 500 MG TABLET PO (13:27)
[2024-05-04] MEDS: CYCLOBENZAPRINE HCL 10 MG TABLET PO (13:28)
--- NOTE | 2024-05-04 15:28 | CM.DCFOLLOWU ---
Returned to [facility]
== END 2024-05-04 13:58 | disposition home or self-care (01) ==
LOC: ER 18:35 → MS 20:13
PROVIDERS: Registered Nurse; Admitting Provider Family Medicine; Emergency Provider Emergency Medicine Emergency Medical Services; PCP Family Medicine; Visit Provider Family Medicine
DX: E86.0 Dehydration (principal); I95.9 Hypotension, unspecified; R09.02 Hypoxemia; Z91.81 History of falling; N17.9 Acute kidney failure, unspecified; D72.829 Elevated white blood cell count, unspecified; R79.89 Other specified abnormal findings of blood chemistry; M51.16 Intervertebral disc disorders with radiculopathy, lumbar region; F17.210 Nicotine dependence, cigarettes, uncomplicated; F03.90 Unspecified dementia, unspecified severity, without behavioral disturbance, psychotic disturbance, mood disturbance, and anxiety
CPT/HCPCS: 36415; 70450; 71045; 80048; 80053; 81003; 82550; 82800; 83605; 83880; 84484; 85025; 87040; 93005; 94761; 96360; 96361; 96372; 97161; 97165; 99285; G0378; J1644

== ENCOUNTER 2024-05-21 12:15 | Inpatient (IN) | payer MEDICARE, BC, SELFPAY ==
[2024-05-21] VITALS (51 sets, daily range): BP systolic 68–110; BP diastolic 40–68; PULSE 65–88; TEMP 36.3–36.6; O2SAT 84–99; BMI 27.5; BMI 29.6
--- NOTE | 2024-05-21 12:22 | CT_ITS ---
[address] [address] Patient Name: TAYLOR MCCLELLAN MRN: [id number] date: 1955 Sex: M Assigned Patient Location: ER Current Patient Location: .[facility] Accession/Order Number: [id number] Exam Date: 05/21/2024 12:45 Report Date: 05/21/2024 13:33 At the request of: LENNY ROJO Procedure: CT head/brain wo con CT head without contrast, 05/21/2024. HISTORY: Fall. COMPARISON: CT head without contrast, 05/03/2024. TECHNIQUE: Noncontrast axial CT images obtained through the head. Reconstructions obtained in the sagittal and coronal planes. Dose reduction techniques were achieved by using automated exposure control and/or adjustment of mA and/or kV according to patient size and/or use of iterative reconstruction technique.. FINDINGS: The paranasal sinuses are clear. Mastoid air cells are clear. No skull fracture. Orbital contents unremarkable. No scalp hematoma. 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 Chronic lacunar infarction in the right thalamus stable. Chronic lacunar infarction in the lentiform nucleus on the left stable. No extra-axial fluid collection. Mild brain atrophy stable. There is no mass effect. No hydrocephalus. No shift of midline. No acute intracranial hemorrhage. No mass. CT/CT head/brain wo con IMPRESSION: 1. Stable CT of the head. No acute intracranial findings. No intracranial hemorrhage. 2. 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 3. Stable brain atrophy. Electronically authenticated by: SANDRA SHARMA Date: 05/21/2024 13:33
--- NOTE | 2024-05-21 12:22 | ECG_ITS ---
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
--- NOTE | 2024-05-21 12:22 | XR_ITS ---
The [address] [address] Patient Name: TAYLOR MCCLELLAN MRN: [id number] date: 1955 Sex: M Assigned Patient Location: ER Current Patient Location: ER Accession/Order Number: [id number] Exam Date: 05/21/2024 12:45 Report Date: 05/21/2024 13:03 At the request of: LENNY ROJO Procedure: XR chest 1V EXAMINATION: XR chest 1V HISTORY: weak COMPARISON: 05/03/2024 TECHNIQUE: AP portable FINDINGS: LUNGS: Right lung is clear. Mild left basilar infiltrate VASCULATURE: No increased pulmonary vasculature. PLEURA: No pneumothorax, effusion, or pleural thickening. CARDIAC: No cardiomegaly or cardiac silhouette abnormality. MEDIASTINUM: No visible mass or adenopathy. BONES: No fracture or visible bone lesion. OTHER: Negative. XR/XR chest 1V IMPRESSION: Mild left basilar infiltrate Electronically authenticated by: SARAI KIRKLAND Date: 05/21/2024 13:03
--- NOTE | 2024-05-21 12:23 | ED_ITS ---
HPI HPI - General Adult General Chief complaint: Altered Mental Status Stated complaint: FALL Time Seen by Provider: 05/21/24 12:17 History of Present Illness HPI narrative: 68-year-old male presents from [facility] for evaluation for weakness. He is not able to provide us any history at all. He reportedly fell in the middle of the night. He was slow to respond today and paramedics brought him in. No further history is initially obtainable. Related Data Home Medications ?Medication ?Instructions ?Recorded ?Confirmed aspirin 81 mg capsule 81 mg PO DAILY 03/14/23 05/21/24 carvedilol 12.5 mg tablet (Coreg) 12.5 mg PO BID 03/14/23 05/21/24 clopidogrel 75 mg tablet 75 mg PO QDAY 03/14/23 05/21/24 mirtazapine 45 mg tablet 45 mg PO .QHS 11/05/23 05/21/24 candesartan 8 mg tablet 8 mg PO DAILY 04/14/24 05/21/24 cyclobenzaprine 10 mg tablet 10 mg PO TID PRN muscle spasm 04/14/24 05/21/24 divalproex 500 mg tablet,delayed 500 mg PO Q12H 04/14/24 05/21/24 release ezetimibe 10 mg tablet 10 mg PO DAILY 04/14/24 05/21/24 famotidine 40 mg tablet 40 mg PO DAILY 04/14/24 05/21/24 gabapentin 600 mg tablet 600 mg PO QID 04/14/24 05/21/24 tamsulosin 0.4 mg capsule 0.4 mg PO DAILY 04/14/24 05/21/24 tramadol 50 mg tablet 50 mg PO QID PRN pain 04/14/24 05/21/24 acetaminophen 500 mg capsule 500 mg PO TID 05/03/24 05/21/24 docusate sodium 100 mg capsule 100 mg PO .qod 05/03/24 05/21/24 multivitamin with folic acid 1 tab PO DAILY 05/03/24 05/03/24 atorvastatin 80 mg tablet 80 mg PO DAILY 05/21/24 05/21/24 primidone 50 mg tablet 50 mg PO DAILY 05/21/24 05/21/24 Previous Rx's ?Medication ?Instructions ?Recorded celecoxib 200 mg capsule 200 mg PO DAILY #30 caps 03/15/23 Allergies Allergy/AdvReac Type Severity Reaction Status Date / Time amitriptyline Allergy Verified 11/05/23 23:51 citalopram Allergy Verified 11/05/23 23:51 fentanyl Allergy Verified 11/05/23 23:51 simvastatin [From Zocor] Allergy Verified 11/05/23 23:51 succinylcholine Allergy Verified 11/05/23 23:51 venlafaxine [From Effexor] Allergy Verified 11/05/23 23:51 Opioid HPI Opioid Management Most Recent Opioid Data: Last Pain Scale 6 05/04/24 13:00 Last Pain Intensity 0 04/30/24 09:44 Last ORT Total Score 5 05/03/24 20:21 Last ORT Risk Category Moderate Risk 05/03/24 20:21 Ur Phencyclidine Scrn Negative (NEGATIVE) 11/05/23 16:26 Review of Systems ROS Narrative Not obtainable, disoriented [facility] Medical History Weakness ?R53.1 - Weakness (ICD-10) Ambulatory dysfunction ?R26.2 - Difficulty in walking, not elsewhere classified (ICD-10) Fall ?W19.XXXA - Unspecified fall, initial encounter (ICD-10) Chronic low back pain with bilateral sciatica ?M54.41 - Lumbago with sciatica, right side (ICD-10) ?M54.42 - Lumbago with sciatica, left side (ICD-10) ?G89.29 - Other chronic pain (ICD-10) Altered mental status ?R41.82 - Altered mental status, unspecified (ICD-10) Chronic back pain ?M54.9 - Dorsalgia, unspecified (ICD-10) ?G89.29 - Other chronic pain (ICD-10) Orthostatic dizziness ?R42 - Dizziness and giddiness (ICD-10) Accidental fall ?W19.XXXA - Unspecified fall, initial encounter (ICD-10) CAD (coronary artery disease) ?I25.10 - Atherosclerotic heart disease of [place] coronary artery without angina pectoris (ICD-10) Back pain ?M54.9 - Dorsalgia, unspecified (ICD-10) 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 - Fusion of spine, lumbar region (ICD-10) High cholesterol ?E78.00 - Pure hypercholesterolemia, unspecified (ICD-10) Hypertension ?I10 - Essential (primary) hypertension (ICD-10) IDDM (insulin dependent diabetes mellitus) Restless leg syndrome ?G25.81 - Restless legs syndrome (ICD-10) Suicidal ideation ?R45.851 - Suicidal ideations (ICD-10) Sleep apnea ?G47.30 - Sleep apnea, unspecified (ICD-10) Anxiety ?F41.9 - Anxiety disorder, unspecified (ICD-10) Metabolic encephalopathy ?G93.41 - Metabolic encephalopathy (ICD-10) Depression ?F32.A - Depression, unspecified (ICD-10) Acute renal failure ?N17.9 - Acute kidney failure, unspecified (ICD-10) Altered mental status ?R41.82 - Altered mental status, unspecified (ICD-10) Surgical History S/P CABG (coronary artery bypass graft) ?Z95.1 - Presence of aortocoronary bypass graft (ICD-10) History of heart artery stent ?Z95.5 - Presence of coronary angioplasty implant and graft (ICD-10) Family History Mother Family history of myocardial infarction Social History Within the past year, how often did you have a drink containing alcohol: never Score interpretation: A score less than 4 is consistent with normal alcohol consumption. 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 Known occupational exposures/hazards: No Highest level of school completed/degree received: high school graduate Do you want help with school or training: No Are you now , , , , never or living with a partner: In a typical week, how many times do you talk on the telephone with family, friends, or neighbors: never How often do you get together with friends or relatives: never How often do you attend hinduism or worship services: never Do you belong to any clubs or organizations such as hinduism groups unions, fraternal or athletic groups, or school groups: no Total score: 1 Score interpretation: A score of less than or equal to 1 indicates the most socially isolated. Little interest or pleasure in doing things: nearly every day Feeling down, depressed, or hopeless: several days Feel stressed/tense/nervous/anxious/difficulty sleeping: very much Life stressors: recent of family or friend Life stressor details: mother and step father a year ago Due to disability, difficulty making decisions: No Do you think of yourself as: straight/heterosexual Gender Identity: male Exam Narrative Exam Narrative: Nurses note and vital signs reviewed and patient is not hypoxic. General: The patient appears in no acute respiratory distress. It appears that he prefers to keep his eyes closed. Skin: Warm, dry, no pallor noted. There is no rash noted. Head: Normocephalic, atraumatic Eye: Normal conjunctiva, no drainage Ears, Nose, Mouth, and Throat: oral mucosa is dry. Cardiovascular: Regular Rate and Rhythm, not tachycardic Respiratory: Patient is in no distress, no accessory muscle use, lungs are clear to auscultation, no wheezing, rales or rhonchi Back: nontender GI: Soft and nontender Musculoskeletal: No palpable tenderness to all 4 extremity Neurological: He knows his name. He cannot tell me what year it is or where he is or why he is here Psychiatric: Cooperative Constitutional Vital Signs, click to edit/add: Last Vital Signs Temp 97.3 F L 05/21/24 12:34 Pulse 70 05/21/24 14:41 Resp 20 05/21/24 14:41 BP 94/59 05/21/24 14:41 Pulse Ox 94 L 05/21/24 14:41 O2 Del Method Nasal Cannula 05/21/24 12:46 O2 Flow Rate 3 05/21/24 12:46 Course Vital Signs Vital signs: Vital Signs Pulse Rate 88 05/21/24 12:27 Respiratory Rate 17 05/21/24 12:27 Pulse Oximetry 84 L 05/21/24 12:27 Temperature 97.3 F L 05/21/24 12:34 Pulse Rate 70 05/21/24 14:41 Respiratory Rate 20 05/21/24 14:41 Blood Pressure 94/59 05/21/24 14:41 Pulse Oximetry 94 L 05/21/24 14:41 Oxygen Delivery Method Nasal Cannula 09/12/24 12:46 Oxygen Delivery Flow Rate 3 05/21/24 12:46 Medical Decision Making MDM Narrative Medical decision making narrative: Chest x-ray per radiologist indicates an infiltrate. Blood cultures were obtained and he was given IV Rocephin and Zithromax initially and then IV Zosyn after I spoke to Dr. Jiang. The patient was hypotensive upon arrival with acute kidney injury on his labs and he was given 3 L of IV fluids here. His blood pressure has improved and he is being admitted. Differential Diagnosis Differential Diagnosis: Pneumonia, dehydration, UTI, acute kidney injury Lab Data Lab results reviewed: Yes I reviewed the patient's lab results Labs: Lab Results 05/21/24 05/21/24 Range/Units 12:28 13:10 WBC 16.2 H (4.0-11.0) 10^3/uL RBC 3.94 L (4.70-6.10) 10^6/uL Hgb 12.3 L (14.0-18.0) g/dL Hct 37.2 L (42.0-54.0) % MCV 94.4 H (80.0-94.0) fL MCH 31.2 (25.9-34.0) pg MCHC 33.1 (29.9-35.2) g/dL RDW 13.7 (11.0-15.0) % Plt Count 226 (150-450) 10^3/uL MPV 12.4 (9.5-13.5) fL Neut % (Auto) 78.4 H (43.0-75.0) % Lymph % (Auto) 13.5 L (20.5-60.0) % [place] % (Auto) 7.2 (1.7-12.0) % Eos % (Auto) 0.1 L (0.9-7.0) % Baso % (Auto) 0.4 (0.2-2.0) % Neut # (Auto) 12.7 H (1.4-6.5) 10^3/uL Lymph # (Auto) 2.2 (1.2-3.8) 10^3/uL [place] # (Auto) 1.2 H (0.3-0.8) 10^3/uL Eos # (Auto) 0.0 (0.0-0.7) 10^3/uL Baso # (Auto) 0.1 (0.0-0.1) 10^3/uL Abs Immat Gran (auto) 0.06 H (0.00-0.03) 10^3/uL Imm/Tot Granulo (auto) 0.4 (0.0-0.5) % Sodium 142 (136-145) mmol/L Potassium 4.4 (3.5-5.1) mmol/L Chloride 106 (98-107) mmol/L Carbon Dioxide 20.6 L (21.0-32.0) mmol/L Anion Gap 19.8 BUN 41.0 H (7.0-18.0) mg/dL Creatinine 2.23 H (0.70-1.30) mg/dL Est GFR ( Amer) 36 L (>=60) Est GFR (Non-Af Amer) 30 L (>=60) BUN/Creatinine Ratio 18.4 Glucose 191 H (74-106) mg/dL Lactate 4.5 H* (0.4-2.0) mmol/L Calcium 8.9 (8.5-10.1) mg/dL Troponin I High Sens 13.8 (4.0-76.1) pg/mL Urine Color Dk. yellow (YELLOW) Urine Clarity Clear (CLEAR) Urine pH 6.0 (5.0-9.0) Ur Specific [place] >=1.030 A (1.005-1.025) Urine Protein Trace (NEG/TRACE) mg/dL Urine Glucose (UA) Negative (NEGATIVE) mg/dL Urine Ketones 40 A (NEGATIVE) mg/dL Urine Occult Blood Negative (NEGATIVE) Urine Nitrite Negative (NEGATIVE) Urine Bilirubin Moderate A (NEGATIVE) Urine Urobilinogen 1.0 (0.2-1.0) EU/dL Ur Leukocyte Esterase Negative (NEGATIVE) Urine RBC 0-2 (0-2) #/HPF Urine WBC 2-5 A (NONE SEEN) #/HPF Ur Squamous Epith Cells Few A (NONE/RARE) #/LPF Urine Bacteria Trace A (NONE SEEN) #/HPF Urine Mucus Moderate A (NONE SEEN) Ur Culture Indicated? Yes Imaging Data Chest x-ray: Radiologist's impression: ITS Impressions Chest X-Ray 05/21/24 12:22 IMPRESSION: Mild left basilar infiltrate Electronically authenticated by: SARAI KIRKLAND Date: 05/21/2024 13:[address] 05/21/24 12:22 IMPRESSION: 1. Stable CT of the head. No acute intracranial findings. No intracranial hemorrhage. 2. 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 3. Stable brain atrophy. Electronically authenticated by: SANDRA SHARMA Date: 05/21/2024 13:33 ECG Data Attestation: I personally reviewed and interpreted this ECG as follows: (She she on my interpretation shows sinus rhythm with a rate of 87.) Discharge Plan Discharge Chief Complaint: Altered Mental Status Clinical Impression: Pneumonia, Acute kidney injury, Acute hypotension Patient Disposition: Admitted As Inpatient Time of Disposition Decision: 15:13 Condition: Fair
[2024-05-21] MEDS: 0.9 % SODIUM CHLORIDE 1,000 ML 1000 ML IV ×3 (12:30→14:19)
[2024-05-21 12:46] LABS: Basophils Absolute Auto 0.1 10^3/uL (0.0-0.1); Basophils Percent Auto 0.4 % (0.2-2.0); Eosinophils Percent Auto 0.1 % (0.9-7.0); Hematocrit 37.2 % (42.0-54.0); Hemoglobin 12.3 g/dL (14.0-18.0); Immature Granulocytes Abs Auto 0.06 10^3/uL (0.00-0.03); Immature Granulocytes Pct Auto 0.4 % (0.0-0.5); Lymphocytes Absolute Auto 2.2 10^3/uL (1.2-3.8); Lymphocytes Percent Auto 13.5 % (20.5-60.0); Mean Corpuscular HGB Conc 33.1 g/dL (29.9-35.2); Mean Corpuscular Hemoglobin 31.2 pg (25.9-34.0); Mean Corpuscular Volume 94.4 fL (80.0-94.0); Mean Platelet Volume 12.4 fL (9.5-13.5); Monocytes Absolute Auto 1.2 10^3/uL (0.3-0.8); Monocytes Percent Auto 7.2 % (1.7-12.0); Neutrophils Absolute Auto 12.7 10^3/uL (1.4-6.5); Neutrophils Percent Auto 78.4 % (43.0-75.0); Platelet Count 226 10^3/uL (150-450); Red Blood Count 3.94 10^6/uL (4.70-6.10); Red Cell Distribution Width 13.7 % (11.0-15.0); White Blood Count 16.2 10^3/uL (4.0-11.0)
[2024-05-21 13:09] LABS: Anion Gap 19.8; BUN Creatinine Ratio 18.4; Calcium 8.9 mg/dL (8.5-10.1); Carbon Dioxide 20.6 mmol/L (21.0-32.0); Chloride 106 mmol/L (98-107); Estimated GFR (African America 36 (>=60); Estimated GFR (Non-African Ame 30 (>=60); Glucose 191 mg/dL (74-106); Potassium 4.4 mmol/L (3.5-5.1); Sodium 142 mmol/L (136-145); Troponin I High Sensitivity 13.8 pg/mL (4.0-76.1)
[2024-05-21 13:10] LABS: Lactate/Lactic Acid 4.5 mmol/L (0.4-2.0)
[2024-05-21 13:22] LABS: Bilirubin Urine MODERATE (NEGATIVE); Blood Urine NEGATIVE (NEGATIVE); Clarity Urine CLEAR (CLEAR); Color Urine DK. YELLOW (YELLOW); Glucose Urine UA NEGATIVE (NEGATIVE); Ketones Urine 40 mg/dL (NEGATIVE); Leukocyte Esterase Urine NEGATIVE (NEGATIVE); Nitrite Urine NEGATIVE (NEGATIVE); Protein Urine TRACE mg/dL (NEG/TRACE); Specific Gravity Urine >=1.030 (1.005-1.025)
[2024-05-21 13:33] LABS: RBC Urine 0-2 #/HPF (0-2)
[2024-05-21 13:35] LABS: Bacteria Urine TRACE #/HPF (NONE SEEN); Mucus Urine MODERATE (NONE SEEN); Squamous Epithelial Cell Urine FEW #/LPF (NONE/RARE)
[2024-05-21 13:36] LABS: Urine Culture Indicated YES
[2024-05-21] MEDS: CEFTRIAXONE 1,000 MG in 0.9 % SODIUM CHLORIDE 50 ML 100 MG IV (13:38)
[2024-05-21] MEDS: AZITHROMYCIN 500 MG in 0.9 % SODIUM CHLORIDE 250 ML 250 MG IV (14:04)
[2024-05-21] MEDS: PIPERACILLIN SODIUM/TAZOBACTAM 3.375 GM in 0.9 % SODIUM CHLORIDE 50 ML IV ×2 (15:46→23:07)
[2024-05-21 16:02] LABS: Lactate/Lactic Acid 1.7 mmol/L (0.4-2.0)
--- OUTSIDE RECORDS SUMMARY | 2024-05-21 16:08 | XMS_ITS | CCD ---
Author Organization [facility] Care Team Providers Care Parts Facilitator Name Role Phone Bro Sanford Primary Care [...] Provider MD Flavio Ramirez Other Provider Gold[facility] Pily Espinal Other Provider [phone] MD Adelaide Leonardo Other Provider MD Itzel [...] Unavailable ALESIA FERNANDEZ Consulting Unavailable RAND PANDEY M Consulting Unavailable DIAB ., PHILL Consulting [...] Unavailable HOY ., DR HURTADO Consulting Unavailable HOArias ., DR HURTADO Attending Unavailable HOArias ., DR HURTADO Admitting Unavailable SARAI AVALOS [...] Consulting Unavailable MAURIZIO TORIBIO Consulting Unavailable YAHAIRA EASELY Consulting Unavailable GAIL ., DR HURTADO Primary Care Unavailable EFFIE WERNER Attending Unavailable EFFIE WERNER Consulting Unavailable EFFIE WERNER Admitting Unavailable Itzel Adams Attending Unavailable Itzel Adams Attending Unavailable Itzel Adams Attending Unavailable Itzel Adams Attending Unavailable Sharad, MsElizabeth Liliareynaldo Moore Attending Maria Teresa Reynolds, Genesis M Primary Care Unavailable Domingo, Benson S Admitting Unavailable Domingo, Benson S Attending Unavailable Vivian, Danilo Admitting Unavailab le Vivian, Danilo Attending Unavailab le Farooqy, Genesis M Primary Care Unavailable Bro Sanford MD Primary Care Provider JUDY HURT Referring Unavailable BRO SANFORD Primary Care Unavailalissa e SUSAN URIOSTEGUI Referring Unavailable CHRISERER, BRO PRATHER Primary Care Unavailabl e CLARIBEL, BRO PRATHER Primary Care Unavailabl e ANTHONY GREENE Attending Unavailable ELTAHAWY, EHAB Attending Unavailable ELTAHAWY, EHAB Attending Unavailable CASTILLO, FESTUS Admitting Unavailable CASTILLO, FESTUS Attending Unavailable CASTILLO, FESTUS Referring Unavailable HOY, GENESIS M Primary Care Unavailable HOY, GENESIS M Referring Unavailable HOY, GENESIS M Primary Care Unavailable HOY, GENESIS M Referring Unavailable HOY, GENESIS M Primary Care Unavailable HOY, GENESIS M Referring Unavailable HOY, GENESIS M Primary Care Unavailable Allergies Allergy Classification Reported Allergen(s) Allergy Type Date of Onset Reaction(s) Facility (6 sources) Amitriptyline; Translations: [Amitriptyline] Drug Allergy 05-18-20 14 Unknown Reaction [facility] (12 sources) atorvastatin; Translations: [atorvastatin] Drug Allergy 01-24-20 19 Unknown Reaction, Unknown [facility] (6 sources) chlordiazePOXIDE; Translations: [chlordiazepoxide] Drug Allergy 01-24-20 19 Unknown Reaction [facility] (6 sources) clidinium; Translations: [clidinium] Drug Allergy 01-24-20 19 Unknown Reaction [facility] (16 sources) fentaNYL; Translations: [Fentanyl] Drug Allergy 12-27-19 17 Unknown Reaction, Unknown [facility] (9 sources) venlafaxine; Translations: [venlafaxine] Drug Allergy 05-13-20 14 Other (See Comments) [facility] (4 sources) Citalopram; Translations: [Citalopram] Drug Allergy 01-11-20 21 Unknown Reaction [facility] (4 sources) Simvastatin; Translations: [simvastatin] Drug Allergy 07-17-20 22 Unknown Reaction [facility] (7 sources) Succinylcholine; Translations: [Succinylcholine] Drug Allergy 09-08-20 04 Unknown Reaction [facility] (7 sources) Amitriptyline; Translations: [Elavil] Drug Allergy 04-20-20 14 Unknown [facility] Repository (6 sources) chlordiazePOXIDE / clidinium Drug Allergy Unknown [employer] Other (7 sources) venlafaxine; Translations: [Effexor] Drug Allergy 04-06-20 14 Unknown [facility] Repository (1 source) buPROPion Drug Allergy [facility]ository (1 source) Citalopram Drug Allergy 12-31-19 20 [facility] Repository (1 source) mirabegron Drug Allergy [facility] Repository (1 source) Simvastatin Drug Allergy [facility] Repository (1 source) tiZANidine Drug Allergy [facility] Repository (1 source) Amitriptyline Drug Allergy 05-18-20 14 [facility] Phone: (1 source) metFORMIN; Translations: [METFORMIN] Drug Allergy 11-30-19 22 [facility] Repository (1 source) OTHER; Translations: [OTHER] Propensity to adverse reactions to food (disorder) 01-11-20 21 [facility] Rep[facility] Medications Current Medications Medication Drug Class(es) [...] 11, 2018 11:00pm December 23, 2018 4:29pm [id number] 200 actuat albuterol 0.09 mg/actuat metered dose [...] tablet by mouth twice daily Hydrocodone-Aceta minophen ([place]) 5-325 mg tablet Discontinued 1 TAB PO [...] 2019 9:31pm take 3 tablets by mo uth once daily mirtazapine (REMERON QUEENIE-TAB) 15 MG [...] Translations: [ACUTE BRONCHITIS UNSPECIFIED] Onset: 12-20-2022 Episodic Acute cerebrovascular disease (1 source) Acute cerebrovascular disease Onset: 04-29-2024 Anxiety disorders (1 source) Anxiety disorder, unspecified; Translations: [ANXIETY DISORDER UNSPECIFIED] Onset: 01-21-2023 Chronic Congestive heart failure; nonhypertensive (1 source) Chronic diastolic (congestive) heart failure; Translations: [CHRONIC DIASTOLIC HEART FAILURE] Onset: 01-21-2023 Chronic Coronary atherosclerosis and other heart disease (9 sources) Coronary arteriosclerosis; Translations: [Atherosclerotic heart disease of [place] coronary artery without angina pectoris] Onset: 11-25-2014 [...] 12-26-2016 Chronic Other aftercare (1 source) Other fci (current) drug therapy; Translations: [OTH PENITENTIARY CURRENT DRUG THERAPY] Onset: 01-21-2023 Episodic Other aftercare (1 source) shelter (current) use of antithrombotics/antip latelets; Translations: [PENITENTIARY 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/ANTIPLAT LETS] Onset: 12-20-2022 Episodic Other circulatory [...] [ALTERED MENTAL STATUS UNSPECIFIED] Onset: 07-15-2022 Episodic Residual codes; unclassified (1 source) Pain, unspecified; Translations: [Pain, unspecified] Onset: 04-30-2024 Episodic Schizophrenia and other psychotic disorders (4 [...] 06-25-2022 07-17-2022 Episodic Other aftercare (1 source) long term (current) use of aspirin; Translations: [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 The caroline hayes was examined and there are no changes to the H&P. Normal [facility] NURSNOTEon 02-25-2024 NURSNOTE RN educated pt on d/ c instructions. RN encouraged pt to voice any questions or concerns. Pt verbalizes no questions or concerns at this time. Pt was wheeled off of unit with all of belongings. Normal [facility] Orders Onlyon 02-20-2024 Orders Only [id number] Chacho Mcclellan ph J 1955 M Date Provider Department Center 02/20/2024 ZANDRA TEJADA [facility] Family History Problem Relation Age of Onset No Known Problems Mother No Known Problems Father Family Status - Relation Status Age at Mother Father Normal [facility] HPon 02-17-2024 [facility] Cardiology Clinic Note Chief Complaint: [...] catheterization. I will not be in the [place] for the next 3 to 4 weeks; [...] therapy, moder (more content not included)... Normal [facility] Office Visiton 02-17-2024 Follow-up visit [id number] Chacho Mcclellan ph J 1955 M Date Provider Department Center 02/17/2024 [facility]Y [facility] Family History Problem Relation Age of Onset No Known Problems Mother No Known Problems Father Family Status - Relation Status Age at Mother Father Level of Service:76951 [place] OFFICE/OUTPATIENT NEW HIGH MDM 60 MINUTES Normal [facility] Orders Onlyon 02-17-2024 Orders Only [id number] Chacho Mcclellan ph J 1955 M Date Provider Department Center 02/17/2024 DIRK JARA CARD [facility] Family History Problem Relation Age of Onset No Known Problems Mother No Known Problems Father Family Status - Relation Status Age at Mother Father Normal [facility] Urinalysis w/ Microon 2023 Bacteria TRACE Abnormal NONE [facility] Comment on above: Performed By: #### U AMIC #### [facility] [address] [place] [address] Dr. [place], [id number] Pad Extraction Tender: Sarai Howell MD Bilirubin, SemiQt,Ur Negative Normal NEG [facility] Comment on above: Performed By: #### U AMIC #### [address] [place] [address] Pad Extraction Tender: Sarai Howell MD Blood, Urine Negative Normal NEG [facility] Comment on above: Performed By: #### U AMIC #### [facility] [address] [place] [address] Dr. [place], [id number] Pad Extraction Tender: Sarai Howell MD Clarity (U) Clear Normal CLEAR [facility] Comment on above: Performed By: #### U AMIC #### [facility] [address] [place] [address] [place] [address] Pad Extraction Tender: Sarai Howell MD Color (U) Yellow Normal YEL [facility] Comment on above: Performed By: #### U AMIC #### [facility] [address] [place], [place] [id number] Pad Extraction Tender: Sarai Howell MD Epithelial cells LM Ql (Urine sed) 0 TO 2 Normal 0-5 [facility] Comment on above: Performed By: #### U AMIC #### [facility] [address] [place] [address] Pad Extraction Tender: Sarai Howell MD Glucose Ql (U) Negative Normal NEG [facility] Comment on above: Performed By: #### U AMIC #### [facility] [address] [place], [place] [id number] Pad Extraction Tender: Sarai Howell MD Ketones Ql (U) Negative Normal NEG [facility] Comment on above: Performed By: #### U AMIC #### [facility] [address] [place], [place] [id number] Pad Extraction Tender: Sarai Howell MD Leukocyte esterase Test strip Ql (U) Negative Normal NEG [facility] Comment on above: Performed By: #### U AMIC #### [facility] [address] [place], [place] [id number] Pad Extraction Tender: Sarai Howell MD Mucus Strands TRACE Abnormal NONE [facility] Comment on above: Performed By: #### U AMIC #### [facility] [address] [place], [place] 3839483 Pad Extraction Tender: Sarai Howell MD Nitrite,Ur Negative Normal NEG [facility] Comment on above: Performed By: #### U AMIC #### [facility] [address] [place], [place] [address]57[address]83 Pad Extraction Tender: Sarai Howell MD PH,Ur 7.0 Normal 5.0-9.0 [facility] Comment on above: Performed By: #### U AMIC #### [facility] [address] [place], [place] 3590283 Pad Extraction Tender: Sarai Howell MD Protein Ql (U) Negative Normal NEG [facility] Comment on above: Performed By: #### U AMIC #### [facility] [address] [place], [place] 5[address]83 Pad Extraction Tender: Sarai Howell MD Spec. [place],Ur 1.015 Normal 1.010-1.02 0 [facility] Comment on above: Performed By: #### U AMIC #### [facility] [address] [place], [place] 2164383 Pad Extraction Tender: Sarai Howell MD Urine RBC's 0 TO 2 Normal 0-2 [facility] Comment on above: Performed By: #### U AMIC #### [address] [place], [place] 530[address]83 Pad Extraction Tender: Sarai Howell MD Urine WBC's 2 TO 5 Normal 0-5 [facility] Comment on above: Performed By: #### U AMIC #### [facility] [address] [place] [address] Dr. [place], [place] [phone] Pad Extraction Tender: Sarai Howell MD Urobilinogen,Ur Normal Normal 0.0-1.0 [facility] Comment on above: Performed By: #### U AMIC #### [address] [place], [place] [phone] Pad Extraction Tender: Sarai Howell MD Urinalysis with Microscopico n 11-10-2023 Bacteria LM Ql (Urine sed) TRACE Abnormal None [facility] Bilirubin Ql (U) Negative NEGATIVE [facility] Clarity (U) Clear Clear [facility] Color (U) Yellow Yellow [facility] Epithelial cells LM.HPF (Urine sed) [#/Area] 0 TO 2 [facility] Glucose Test strip (U) [Mass/Vol] Negative NEGATIVE mg/dL [facility] Hemoglobin Auto test strip Ql (U) Negative NEGATIVE [facility] Interpretation and review of laboratory results Abnormal [facility] Ketones (U) [Mass/Vol] Negative NEGAT MELISSA mg/dL [facility] Leukocyte esterase Test strip Ql (U) Negative NEGATIVE [facility] Mucus Ql (Urine sed) TRACE Abnormal None [facility] Nitrite Ql (U) Negative NEGATIVE [facility] pH (U) 7.0 [pH] 5.0 - 9.0 [facility] Protein (U) [Mass/Vol] Negative NEGAT MELISSA mg/dL [facility] RBC LM.HPF (Urine sed) [#/Area] 0 TO 2 [facility] Specific gravity (U) [Rel density] 1.015 1.010 - 1.020 [facility] Urobilinogen Qn (U) Normal 0.0 - 1. 0 EU/dL [facility] WBC LM.HPF (Urine sed) [#/Area] 2 TO 5 [facility] Cult, Bloodon 04-30-2023 Cult, Blood Specimen Description .BLOOD Special Requests lhand, 9ml, 2 bottles Culture NO GROWTH 5 DAYS Report Status FINAL 04/30/2023 [facility] Comment on above: Performed By: #### B CUL2 #### [facility] [address] [place] [address] [place] [address] Pad Extraction Tender: Sarai Howell MD Cult,Bloodon 04-30-2023 Cult,Blood Specimen Description .BLOOD Special Requests LAC, 20ML Culture NO GROWTH 5 DAYS Report Status FINAL 04/30/2023 [facility] Comment on above: Performed By: #### B C #### [facility] [address] [place] [address] Pad Extraction Tender: Sarai Howell MD Lipid Profileon 04-26-2023 Cholesterol [Mass/Vol] 171 mg/dL Normal <200 [facility] Comment on above: Result Comment: Cholesterol Guidelines: <200 Desirable 200-240 Borderline >240 Undesirable Performed By: #### L IPR #### [address] [id number] Pad Extraction Tender: Spencer Tapia MD Cholesterol in HDL [Mass/Vol] 30 mg/dL Low >40 [facility] Comment on above: Result Comment: HDL Guidelines: <40 Undesirable 40-59 Borderline >59 Desirable Performed By: #### L IPR #### [address] [place] [address] Pad Extraction Tender: Spencer Tapia MD Cholesterol in LDL [Mass/Vol] 112 mg/dL Normal 0-130 [facility] Comment on above: Result Comment: LDL Guidelines: <100 Desirable 100-129 Near to/above Desirable 130-159 Borderline >159 Undesirable Direct (measured) LDL and calculated LDL are not interchangeable tests. Performed By: #### L IPR #### [address] [address] Pad Extraction Tender: Spencer Tapia MD Cholesterol.total/Chol esterol in HDL [Mass ratio] 5.7 {ratio} High <5 [facility] Comment on above: Performed By: #### L IPR #### [address] [address] Pad Extraction Tender: Spencer Tapia MD Triglyceride [Mass/Vol] 143 mg/dL Normal <150 [facility] Comment on above: Result Comment: Triglyceride Guidelines: <150 Desirable 150-199 Borderline 200-499 High >499 Very high Based on AHA Guidelines for fasting triglyceride, June 2012. Performed By: #### L IPR #### [address] [address] Pad Extraction Tender: Spencer Tapia MD Basic Metabolic Profon 04-25 Anion gap [Moles/Vol] 13 mmol/L Normal - [facility] Comment on above: Performed By: #### T ANJALI AYALA, BMP #### [facility] [address] [place] [address] Pad Extraction Tender: Sarai Howell MD BUN/CRE Ratio 14 Normal - [facility] Comment on above: Performed By: #### T ANJALI AYALA, BMP #### [facility] [address] [place], [place] 06[address]83 Pad Extraction Tender: Sarai Howell MD Calcium [Mass/Vol] 9.3 mg/dL Normal 8.6-10.4 [facility] Comment on above: Performed By: #### T ANJALI AYALA, BMP #### [facility] [address] [place], [place] [address]14[address] Pad Extraction Tender: Sarai Howell MD Chloride [Moles/Vol] 101 mmol/L Normal 98-107 [facility] Comment on above: Performed By: #### T ANJALI AYALA, BMP #### [facility] [address] [place] [address] Pad Extraction Tender: Sarai Howell MD CO2 [Moles/Vol] 25 mmol/L Normal 20-31 [facility] Comment on above: Performed By: #### T ANJALI AYALA, BMP #### [facility] [address] [place] [id number] Pad Extraction Tender: Sarai Howell MD Creatinine [Mass/Vol] 1.3 mg/dL High 0.7-1.2 [facility] Comment on above: Performed By: #### T ANJALI AYALA, BMP #### [facility] [address] [place] [address] Pad Extraction Tender: Sarai Howell MD GFR/1.73 sq M.predicted among non-blacks MDRD (S/P/Bld) [Vol rate/Area] mL/min/{1.73_m2} Normal >60 [facility] Comment on above: Result Comment: These results [...] By: #### T ANJALI AYALA, BMP #### [facility] [address] [place], [place] 6655883 Pad Extraction Tender: Sarai Howell MD Glucose [Mass/Vol] 87 mg/dL Normal 70-99 [facility] Comment on above: Performed By: #### T ANJALI AYALA, BMP #### [facility] [address] [place], [place] 3140683 Pad Extraction Tender: Sarai Howell MD Potassium [Moles/Vol] 3.9 mmol/L Normal 3.7-5.3 [facility] Comment on above: Performed By: #### T ANJALI AYALA, BMP #### [address] [place], [place] 9341883 Pad Extraction Tender: Sarai Howell MD Sodium [Moles/Vol] 139 mmol/L Normal 135-144 [facility] Comment on above: Performed By: #### ANJALI PRADHAN, BMP #### [address] [place], [place] 7267283 Pad Extraction Tender: Sarai Howell MD Urea nitrogen [Mass/Vol] 18 mg/dL Normal 8-23 [facility] Comment on above: Performed By: #### ANJALI PRADHAN, BMP #### [address] [place], [place] 9445983 Pad Extraction Tender: Sarai Howell MD CBC with Diffon 04-25-2023 Abs. Basophil 0.04 k/uL Normal 0.00-0.20 [facility] Comment on above: Performed By: #### T ANJALI AYALA, BMP #### [address] [place], [place] [phone] Pad Extraction Tender: Sarai Howell MD Abs.Imm.Granulocyte 0.04 k/uL Normal 0.00-0.30 [facility] Comment on above: Performed By: #### T ANJALI AYALA, BMP #### [address] [place] [address] Pad Extraction Tender: Sarai Howell MD Abs.Neutrophil (Seg) 5.64 k/uL Normal 1.50-8.10 [facility] Comment on above: Performed By: #### ANJALI PRADHAN, BMP #### [facility] [address] [place] [address] Dr. [place], [id number] Pad Extraction Tender: Sarai Howell MD Basophils/100 WBC (Bld) 1 % Normal 0-2 [facility] Comment on above: Performed By: #### ANJALI PRADHAN, BMP #### [address] [place] [id number] Pad Extraction Tender: Sarai Howell MD Eosinophils (Bld) [#/Vol] 0.09 10*3/uL Normal 0.00-0.44 [facility] Comment on above: Performed By: #### ANJALI PRADHAN, BMP #### [address] [place], [place] [address] Pad Extraction Tender: Sarai Howell MD Eosinophils/100 WBC (Bld) 1 % Normal 1-4 [facility] Comment on above: Performed By: #### ANJALI PRADHAN, BMP #### [address] [place], [id number] Pad Extraction Tender: Sarai Howell MD Erythrocyte distribution width (RBC) [Ratio] 15.4 % High 11.8-14.4 [facility] Comment on above: Performed By: #### ANJALI PRADHAN, BMP #### [address] [place], [id number] Pad Extraction Tender: Sarai Howell MD Hematocrit (Bld) [Volume fraction] 40.6 % Low 40.7-50.3 [facility] Comment on above: Performed By: #### ANJALI PRADHAN, BMP #### [address] [place] [id number] Pad Extraction Tender: Sarai Howell MD Hemoglobin (Bld) [Mass/Vol] 13.1 g/dL Normal 13.0-17.0 [facility] Comment on above: Performed By: #### ANJALI PRADHAN, BMP #### [facility] [address] [place], [place] 99[address]83 Pad Extraction Tender: Sarai Howell MD Immature granulocytes/100 WBC (Bld) 1 % High 0 [facility] Comment on above: Performed By: #### ANJALI PRADHAN, BMP #### [facility] [address] [place] [address] Pad Extraction Tender: Sarai Howell MD Lymphocytes (Bld) [#/Vol] 1.86 10*3/uL Normal 1.10-3.70 [facility] Comment on above: Performed By: #### ANJALI PRADHAN, BMP #### [address] [place], [place] 9368183 Pad Extraction Tender: Sarai Howell MD Lymphocytes/100 WBC (Bld) 22 % Low 24-43 [facility] Comment on above: Performed By: #### ANJALI PRADHAN, BMP #### [address] [place], [place] 9503483 Pad Extraction Tender: Sarai Howell MD MCH (RBC) [Entitic mass] 29.0 pg Normal 25.2-33.5 [facility] Comment on above: Performed By: #### ANJALI PRADHAN, BMP #### [address] [place], [place] 9000883 Pad Extraction Tender: Sarai Howell MD MCHC (RBC) [Mass/Vol] 32.3 g/dL Normal 28.4-34.8 [facility] Comment on above: Performed By: #### ANJALI PRADHAN, BMP #### [address] [place], [place] 0469183 Pad Extraction Tender: Sarai Howell MD MCV (RBC) [Entitic vol] 89.8 fL Normal 82.6-102.9 [facility] Comment on above: Performed By: #### ANJALI PRADHAN, BMP #### [facility] [address] [place], [place] [address]99[address] Pad Extraction Tender: Sarai Howell MD Monocytes (Bld) [#/Vol] 0.83 10*3/uL Normal 0.10-1.20 [facility] Comment on above: Performed By: #### ANJALI PRADHAN, BMP #### [facility] [address] [place], [place] 2567683 Pad Extraction Tender: Sarai Howell MD Monocytes/100 WBC (Bld) 10 % Normal 3-12 [facility] Comment on above: Performed By: #### ANJALI PRADHAN, BMP #### [address] [place] [address] Pad Extraction Tender: Sarai Howell MD Neutrophil (Seg) 65 % Normal 36-65 [facility] Comment on above: Performed By: #### ANJALI PRADHAN, BMP #### [address] [place], [place] 6322683 Pad Extraction Tender: Sarai Howell MD NRBC Automated 0.0 per 100 WBC Normal 0.0 [facility] Comment on above: Performed By: #### ANJALI PRADHAN, BMP #### [facility] [address] [place], [id number] Pad Extraction Tender: Sarai Howell MD Platelet mean volume (Bld) [Entitic vol] 11.9 fL Normal 8.1-13.5 [facility] Comment on above: Performed By: #### ANJALI PRADHAN, BMP #### [facility] [address] [place] [address] Pad Extraction Tender: Sarai Howell MD Platelets (Bld) [#/Vol] 254 10*3/uL Normal 138-453 [facility] Comment on above: Performed By: #### T ANJALI AYALA, BMP #### [facility] [address] [place] [address] Pad Extraction Tender: Sarai Howell MD RBC (Bld) [#/Vol] 4.52 10*6/uL Normal 4.21-5.77 [facility] Comment on above: Performed By: #### T ANJALI AYALA, BMP #### [facility] [address] [place], [place] 8865183 Pad Extraction Tender: Sarai Howell MD WBC (Bld) [#/Vol] 8.5 10*3/uL Normal 3.5-11.3 [facility] Comment on above: Performed By: #### T ANJALI AYALA, BMP #### [facility] [address] [place], [place] 5362483 Pad Extraction Tender: Sarai Howell MD CT HEAD WO [...] Babs Mae MD 04/25/23 Final result Normal [facility] Flu A/B Ag Detectionon 04-25 Flu A Ag Detection Negative Normal NEG [facility] Comment on above: Result Comment: for Influenza A Antigen Performed By: #### F LUABA #### [facility] [address] [place] [address] Pad Extraction Tender: Sarai Howell MD Flu B Ag Detection Negative Normal NEG [facility] Comment on above: Result Comment: for Influenza B Antigen. Performed By: #### F LUABA #### [facility] [address] [place] [address] Pad Extraction Tender: Sarai Howell MD Lactic Acidon 04-25-2023 Lactate [Moles/Vol] 1.3 mmol/L Normal 0.5-2.2 [facility] Comment on above: Performed By: #### L ACTIC #### [facility] [address] [place] [address] Pad Extraction Tender: Sarai Howell MD [id number] 04-25-2023 SARS-CoV-2 (COVID-19) RNA JOSÉ MIGUEL+probe Ql (Unsp spec) Not detected Normal NOTDET [facility] Comment on above: Result Comment: Rapid NAAT: [...] management decisions. Fact sheet for Healthcare Providers: https://www.fda.gov/media/592101/download Fact sheet for Patients: https://www.fda.gov/media/692611/download Methodology: Isothermal Nucleic Acid Amplification Performed By: #### F LUABA #### [facility] [address] [place], [place] [id number] Pad Extraction Tender: Sarai Howell MD Troponinon 04-25-2023 Troponin, High Sens 26 ng/L High 022 [facility] Comment on above: Result Comment: High Sensitivity Troponin values cannot be compared with other Troponin methodologies. Performed By: #### F LUABA #### [address] [place] [address] Pad Extraction Tender: Sarai Howell MD Troponin, High Sens 27 ng/L High 0-22 [facility] Comment on above: Result Comment: High Sensitivity Troponin values cannot be compared with other Troponin methodologies. Performed By: #### T JAMIE, CDP, BMP #### [address] [place] [id number] Pad Extraction Tender: Sarai Howell MD UA w/Reflex Cultureon 2022 Bilirubin, SemiQt,Ur SMALL Abnormal NEG [facility] Comment on above: Performed By: #### F LUABA #### [facility] [address] [place] [id number] Pad Extraction Tender: Sarai Howell MD Blood, Urine 3+ Abnormal NEG [facility] Comment on above: Performed By: #### F LUABA #### [address] [place] [address] Pad Extraction Tender: Sarai Howell MD Clarity (U) Cloudy Abnormal CLEAR [facility] Comment on above: Performed By: #### F LUABA #### [facility] [address] [place] [address] Pad Extraction Tender: Sarai Howell MD Color (U) Yellow Normal YEL [facility] Comment on above: Performed By: #### F LUABA #### [facility] [address] [place], [place] [address] Pad Extraction Tender: Sraai Howell MD Glucose Ql (U) Negative Normal NEG [facility] Comment on above: Performed By: #### F LUABA #### [facility] [address] [place], [place] [address] Pad Extraction Tender: Sarai Howell MD Ketones Ql (U) 1+ mg/dL Abnormal NEG [facility] Comment on above: Performed By: #### F LUABA #### [facility] [address] [place], [place] [address] Pad Extraction Tender: Sarai Howell MD Leukocyte esterase Test strip Ql (U) TRACE Abnormal NEG [facility] Comment on above: Performed By: #### F LUABA #### [facility] [address] [place], [place] [address] Pad Extraction Tender: Sarai Howell MD Nitrite,Ur Negative Normal [facility] Comment on above: Performed By: #### F LUABA #### [facility] [address] [place], [place] [address] Pad Extraction Tender: Sarai Howell MD PH,Ur 6.0 Normal 5.0-9.0 [facility] Comment on above: Performed By: #### F LUABA #### [facility] [address] [place], [place] [address] Pad Extraction Tender: Sarai Howell MD Protein Ql (U) 1+ mg/dL Abnormal NEG [facility] Comment on above: Performed By: #### F LUABA #### [facility] [address] [place], [place] [address] Pad Extraction Tender: Sarai Howell MD Spec. [place],Ur >1.030 High 1.010-1.02 0 [facility] Comment on above: Performed By: #### F LUABA #### [facility] [address] [place], [place] [address] Pad Extraction Tender: Sarai Howell MD Urobilinogen,Ur Normal Normal 0.0-1.0 [facility] Comment on above: Performed By: #### F LUABA #### [facility] [address] [place], [place] [address] Pad Extraction Tender: Sarai Howell MD Urinalysis,Microon 3 Bacteria 1+ Abnormal NONE [facility] Comment on above: Performed By: #### F LUABA #### [facility] [address] [place], [place] [address] Pad Extraction Tender: Sarai Howell MD Epithelial cells LM Ql (Urine sed) None Normal 0-5 [facility] Comment on above: Performed By: #### F LUABA #### [facility] [address] [place], [place] 3[address] Pad Extraction Tender: Sarai Howell MD Mucus Strands TRACE Abnormal NONE [facility] Comment on above: Performed By: #### F LUABA #### [facility] [address] [place], [place] [address] Pad Extraction Tender: Sarai Howell MD Urine RBC's 20 TO 50 Normal 0-2 [facility] Comment on above: Performed By: #### F LUABA #### [facility] [address] [place], [place] [address] Pad Extraction Tender: Saari Howell MD Urine WBC's 2 TO 5 Normal 0-5 [facility] Comment on above: Performed By: #### F LUABA #### [facility] [address] [place], [place] [address] Pad Extraction Tender: Sarai Howell MD XR CHEST PORTABLEon [...] Sarai Henson MD 04/25/23 Final result Normal [facility] BNPon 01-17-2023 Natriuretic peptide B (Bld) [Mass/Vol] 210.0 pg/mL Normal <=900.0 [facility] Comment on above: Performed By: #### B IRON CARRIER, CMADM, CMP ####[facility] [address] [place] [address]Dr. Donna Malone CARDIAC MJ ADMITon 023 CK [Catalytic activity/Vol] 67 U/L Normal 39-308 [facility] Comment on above: Performed By: #### B IRON CARRIER, CMADM, CMP ####[facility] [address] [place] [address]Dr. Donna Malone CK.MB [Mass/Vol] 2.51 ng/mL Normal <=3.60 [facility] Comment on above: Performed By: #### B IRON CARRIER, CMADM, CMP ####[facility] [address] [place] [address]Dr. Donna Malone HSTROP 9.2 pg/mL Normal 4.0-76.1 [facility] Comment on above: Result Comment: CUT- OFF POINTS HAVE BEEN ESTABLISHED BASED ON THE FOURTH UNIVERSAL DEFINITIONS OF MYOCARDIALINFARCTION. THE UPPER REFERENCE LIMIT (URL) OF TROPONIN, DEFINED THE 99TH PERCENTILE OFcTnI DISTRIBUTION IN A REFERENCE POPULATION, HAS BEEN CONFIRMED THE DECISION THRESHOLDFOR MD DIAGNOSIS. Performed By: #### B IRON CARRIER, CMADM, CMP ####[facility] [address] [place] [phone]. Donna Malone BINDU 68 ng/mL Normal 16-96 [facility] Comment on above: Performed By: #### B IRON CARRIER, CMADM, CMP ####[facility] [address] [place] [phone]. Donna Malone CBC AUTO DIFFon 01-17-2023 BASO # 0.1 103/ul Normal 0.0-0.1 [facility] Comment on above: Performed By: #### C BC ####[facility] [address] [place] [phone]. Donna Malone Basophils/100 WBC (Bld) 0.8 % Normal 0.2-2.0 [facility] Comment on above: Performed By: #### C BC ####[facility] Bjmdol[address] [place], [place] [address]Dr. Donna Malone EO # 0.1 103/ul Normal 0.0-0.7 [facility] Comment on above: Performed By: #### C BC ####[facility] [address] [place] [phone]. Donna Malone Eosinophils/100 WBC (Bld) 1.4 % Normal 0.9-7.0 [facility] Comment on above: Performed By: #### C BC ####[facility] [address] [place] [phone]. Donna Malone Erythrocyte distribution width (RBC) [Ratio] 14.6 % Normal 11.0-15.0 [facility] Comment on above: Performed By: #### C BC ####[facility] [address]kw[address] [place] [phone]. Donna Malone Hematocrit (Bld) [Volume fraction] 43.9 % Normal 42.0-54.0 [facility] Comment on above: Performed By: #### C BC ####[facility] [address] [place], [place] [address]Dr. Donna Malone Hemoglobin (Bld) [Mass/Vol] 14.2 g/dL Normal 14.0-18.0 [facility] Comment on above: Performed By: #### C BC ####[facility] [address]gf[address]umb[address] [place] [phone]. Donna Malone IG # 0.04 10e3/ul Critically high 0.00-0.03 [facility] Comment on above: Performed By: #### C BC ####[facility] Q[address]mfr[address] [place] [phone]. Donna Faisal IG % 0.4 % Normal 0.0-0.5 [facility] Comment on above: Performed By: #### C BC ####[facility] [address] [place] [address]Dr. Donna Faisal LYMPH # 2.3 103/ul Normal 1.2-3.8 [facility] Comment on above: Performed By: #### C BC ####[facility] Jrfufadvuy76[address] [place] [address]Dr. Donna Malone Lymphocytes/100 WBC (Bld) 25.4 % Normal 20.5-60.0 [facility] Comment on above: Performed By: #### C BC ####[facility] Iv[address]kelijj[address] [place] [address]Dr. Rubyyvan Malone MANUAL DIFF REQ NO Normal [facility] Comment on above: Performed By: #### C BC ####[facility] W[address]rgwna[address] [place] [address]Dr. Donna Malone MCH (RBC) [Entitic mass] 29.6 pg Normal 25.9-34.0 [facility] Comment on above: Performed By: #### C BC ####[facility] Vpso[address] [place], [place] [address]Dr. Donna Malone MCHC (RBC) [Mass/Vol] 32.3 g/dL Normal 29.9-35.2 [facility] Comment on above: Performed By: #### C BC ####[facility] [address]jtxdbzn15[address] [place] [address]Dr. Donna Malone MCV (RBC) [Entitic vol] 91.5 fL Normal 80.0-94.0 [facility] Comment on above: Performed By: #### C BC ####[facility] Xx[address]zdkx48[address] [place] [phone]. Donna Malone MONO # 0.7 103/ul Normal 0.3-0.8 [facility] Comment on above: Performed By: #### C BC ####[facility] Jiarnrgjpp8[address] [place] [phone]. Donna Malone Monocytes/100 WBC (Bld) 7.5 % Normal 1.7-12.0 [facility] Comment on above: Performed By: #### C BC ####[facility] Vswkvukckw[address] [place] [phone]. Donna Malone NEUT # 5.9 103/ul Normal 1.4-6.5 [facility] Comment on above: Performed By: #### C BC ####[facility] Vvrxskrwgn10[address] [place] [phone]. Donna Malone Neutrophils/100 WBC (Bld) 64.5 % Normal 43.0-75.0 [facility] Comment on above: Performed By: #### C BC ####[facility] Vcegddychc3[address] [place] [phone]. Donna Malone Platelet mean volume (Bld) [Entitic vol] 10.6 fL Normal 9.5-13.5 [facility] Comment on above: Performed By: #### C BC ####[facility] Ulfxylediy[address] [place] [phone]. Donna Malone PLT 296 103/ul Normal 150-450 [facility] Comment on above: Performed By: #### C BC ####[facility] Eirjcznahh[address] [place] [phone]. Donna Malone RBC 4.80 106/ul Normal 4.70-6.10 [facility] Comment on above: Performed By: #### C BC ####[facility] Wfsfekntfy39[address] [place] [phone]. Donna Malone WBC 9.1 103/ul Normal 4.0-11.0 [facility] Comment on above: Performed By: #### C BC ####[facility] C[address]facoz[address] [place], [place] [address]Dr. Donna Malone CT CSPINE WO CONon 3 CT CSPINE WO CON Normal [facility] CT HEAD WO CONon 01-17-2023 CT HEAD WO CON Normal [facility] CT LSPINE WO CONon 3 CT LSPINE WO CON Normal [facility] PROF 14(COMP METB)on 023 Albumin [Mass/Vol] 3.3 g/dL Critically low 3.4-5.0 [facility] Comment on above: Performed By: #### B IRON CARRIER, CMADM, CMP ####[facility] Ys[address]urasum[address] [place] [address]Dr. Donna Malone Albumin/Globulin [Mass ratio] 0.8 {ratio} Normal [facility] Comment on above: Performed By: #### B IRON CARRIER, CMADM, CMP ####[facility] Cwwpzqsxwo030[address] [place] [address]Dr. Donna Malone ALP [Catalytic activity/Vol] 55 U/L Normal 46-116 [facility] Comment on above: Performed By: #### B IRON CARRIER, CMADM, CMP ####[facility] Tnvmbbnyvq18[address] [place] [address]Dr. Donna Malone ALT [Catalytic activity/Vol] 15 U/L Critically low 16-63 [facility] Comment on above: Performed By: #### B IRON CARRIER, CMADM, CMP ####[facility] Yxdhbzogjs4328 [place] [address]Dr. Donna Malone Anion gap [Moles/Vol] 9.6 mmol/L Normal [facility] Comment on above: Performed By: #### B IRON CARRIER, CMADM, CMP ####[facility] Iaolrmlejj0756 [place] [address]Dr. Donna Malone AST [Catalytic activity/Vol] 14 U/L Critically low 15-37 [facility] Comment on above: Performed By: #### B IRON CARRIER, CMADM, CMP ####[facility] Mbihrhsxqg3257 [place] [address]Dr. Donna Malone Bilirubin [Mass/Vol] 0.2 mg/dL Normal 0.2-1.0 [facility] Comment on above: Performed By: #### B IRON CARRIER, CMADM, CMP ####[facility] Hnvqdhnwes8474 [place] [address]Dr. Donna Malone Calcium [Mass/Vol] 8.6 mg/dL Normal 8.5-10.1 [facility] Comment on above: Performed By: #### B IRON CARRIER, CMADM, CMP ####[facility] Dpdorqqijj[address] [place], [place] [address]Dr. Donna Malone Chloride [Moles/Vol] 107 mmol/L Normal 98-107 [facility] Comment on above: Performed By: #### B IRON CARRIER, CMADM, CMP ####[facility] Mgcmyidoya[address] [place], [place] [address]Dr. Donna Malone CO2 [Moles/Vol] 25.9 mmol/L Normal 21.0-32.0 [facility] Comment on above: Performed By: #### B IRON CARRIER, CMADM, CMP ####[facility] [address]tumnsvnkf[address] [place], [place] [address]Dr. Donna Malone Creatinine [Mass/Vol] 1.12 mg/dL Normal 0.70-1.30 [facility] Comment on above: Performed By: #### B IRON CARRIER, CMADM, CMP ####[facility] Pubbzifnii24[address] [place], [place] [address]Dr. Donna Malone EGFR-AF DJIBOUTIAN >60 Normal >=60 [facility] Comment on above: Performed By: #### B IRON CARRIER, CMADM, CMP ####[facility] Gwvg[address]akig[address] [place], [place] [address]Dr. Donna Malone EGFR-NON AF DJIBOUTIAN >60 Normal >=60 [facility] Comment on above: Performed By: #### B IRON CARRIER, CMADM, CMP ####[facility] Hqlffpulck[address] [place], [place] [address]Dr. Donna Malone Globulin (S) [Mass/Vol] 4.2 g/dL Normal [facility] Comment on above: Performed By: #### B IRON CARRIER, CMADM, CMP ####[facility] Crqmooawhf[address] [place], [place] [address]Dr. Rubyyvan Malone Glucose [Mass/Vol] 163 mg/dL Critically high 74-106 [facility] Comment on above: Performed By: #### B IRON CARRIER, CMADM, CMP ####[facility] Lplgxclngb9162 [place] [address]Dr. Rubyyvan Malone Potassium [Moles/Vol] 4.5 mmol/L Normal 3.5-5.1 [facility] Comment on above: Performed By: #### B IRON CARRIER, CMADM, CMP ####[facility] Xdgsxrjqxk8602 [place] [address]Dr. Rubyyvan Malone Protein [Mass/Vol] 7.5 g/dL Normal 6.4-8.2 [facility] Comment on above: Performed By: #### B IRON CARRIER, CMADM, CMP ####[facility] Dfpjfbcaqj2263 [place] [address]Dr. Donna Malone Sodium [Moles/Vol] 138 mmol/L Normal 136-145 [facility] Comment on above: Performed By: #### B IRON CARRIER, CMADM, CMP ####[facility] Zhfcsbuolv7861 [place] [address]Dr. Rubyyvan Malone Urea nitrogen [Mass/Vol] 11.0 mg/dL Normal 7.0-18.0 [facility] Comment on above: Performed By: #### B IRON CARRIER, CMADM, CMP ####[facility] Clygkkqqik[address] [place] [address]Dr. Donna Malone Urea nitrogen/Creatinine [Mass ratio] 9.8 mg/mg Normal [facility] Comment on above: Performed By: #### B IRON CARRIER, CMADM, CMP ####[facility] Leysjtnwtl37[address] [place] [address]Dr. Donna Malone PROTIMEon 01-17-2023 INR Coag (PPP) [Relative time] 0.94 {INR} Normal [facility] Comment on above: Performed By: #### P TT, PT ####[facility] Jorapnqtrg[address] [place] [address]Dr. Donna Malone INR GUIDELINES SEE BELOW Normal [facility] Comment on above: Result Comment: FLORESITA RED INR: 2.0 - 3.0 CONDITIONS NOT LISTED BELOW 2.5 - 3.5 FOR PROSTHETIC HEART VALVE REPLACEMENT 2.5 - 3.5 RECURRENT THROMBOSIS Performed By: #### P TT, PT ####[facility] Z[address] [place], [place] [address]Dr. Donna Malone PT Coag (PPP) [Time] 10.0 s Normal 9.0-11.6 [facility] Comment on above: Performed By: #### P TT, PT ####[facility] Xwzwxfixpa[address] [place], [place] [address]Dr. Donna Malone PTTon 01-17-2023 aPTT Coag (Bld) [Time] 29.6 s Normal 22.3-36.2 [facility] Comment on above: Performed By: #### P TT, PT ####[facility] Inhfhrhpcv[address] [place], [place] [address]Dr. Donna Malone CBC AUTO DIFFon 11-17-2022 BASO # 0.0 103/ul Normal 0.0-0.1 [facility] Comment on above: Performed By: #### C BC ####[facility] [address]fcuuhjnpc[address] [place], [place] [address]Dr. Donna Malone Basophils/100 WBC (Bld) 0.2 % Normal 0.2-2.0 [facility] Comment on above: Performed By: #### C BC ####[facility] Nxp[address]kgxrt[address] [place], [place] [address]Dr. Donna Malone EO # 0.0 103/ul Normal 0.0-0.7 [facility] Comment on above: Performed By: #### C BC ####[facility] Lqajmqxlte[address] [place], [place] [address]Dr. Donna Malone Eosinophils/100 WBC (Bld) 0.0 % Critically low 0.9-7.0 [facility] Comment on above: Performed By: #### C BC ####[facility] [address]bjbwbovmh[address] [place], [place] [address]Dr. Donna Malone Erythrocyte distribution width (RBC) [Ratio] 14.5 % Normal 11.0-15.0 [facility] Comment on above: Performed By: #### C BC ####[facility] Hybtpxlmrv9289 [place] [address]DrElizabeth Malone Hematocrit (Bld) [Volume fraction] 39.6 % Critically low 42.0-54.0 [facility] Comment on above: Performed By: #### C BC ####[facility] Qrceplazpx4879 [place] [address]DrElizabeth Malone Hemoglobin (Bld) [Mass/Vol] 13.3 g/dL Critically low 14.0-18.0 [facility] Comment on above: Performed By: #### C BC ####[facility] Skqtcyornw[address] [place], [place] [address]DrElizabeth Malone IG # 0.06 10e3/ul Critically high 0.00-0.03 [facility] Comment on above: Performed By: #### C BC ####[facility] R[address]wvq[address]bh[address] [place], [place] [address]DrElizabeth Malone IG % 0.5 % Normal 0.0-0.5 [facility] Comment on above: Performed By: #### C BC ####[facility] Uxv[address]cogzg[address] [place], [place] [address]DrElizabeth Malone LYMPH # 1.0 103/ul Critically low 1.2-3.8 [facility] Comment on above: Performed By: #### C BC ####[facility] R[address]onmzdid[address] [place], [place] [address]DrElizabeth Malone Lymphocytes/100 WBC (Bld) 8.3 % Critically low 20.5-60.0 [facility] Comment on above: Performed By: #### C BC ####[facility] Y[address]jx[address] [place], [place] [address]DrElizabeth Malone MANUAL DIFF REQ NO Normal [facility] Comment on above: Performed By: #### C BC ####[facility] G[address]snhjizd[address] [place], [place] [address]DrElizabeth Malone MCH (RBC) [Entitic mass] 29.4 pg Normal 25.9-34.0 [facility] Comment on above: Performed By: #### C BC ####[facility] Wcxjludswa34[address] [place] [phone]. Donna Faisal MCHC (RBC) [Mass/Vol] 33.6 g/dL Normal 29.9-35.2 [facility] Comment on above: Performed By: #### C BC ####[facility] Raizbpdrln6376 [place] [phone]. Donna Malone MCV (RBC) [Entitic vol] 87.6 fL Normal 80.0-94.0 [facility] Comment on above: Performed By: #### C BC ####[facility] X[address]qvksmoe[address] [place], [place] [address]Dr. Donna Malone MONO # 0.8 103/ul Normal 0.3-0.8 [facility] Comment on above: Performed By: #### C BC ####[facility] Ketuzgihdv[address] [place], [place] [address]Dr. Donna Malone Monocytes/100 WBC (Bld) 6.6 % Normal 1.7-12.0 [facility] Comment on above: Performed By: #### C BC ####[facility] Xaacvrzsfd[address] [place], [place] [address]Dr. Donna Malone NEUT # 10.2 103/ul Critically high 1.4-6.5 [facility] Comment on above: Performed By: #### C BC ####[facility] Ynzqcpmzrf[address] [place], [place] [address]Dr. Donna Malone Neutrophils/100 WBC (Bld) 84.4 % Critically high 43.0-75.0 [facility] Comment on above: Performed By: #### C BC ####[facility] Eddnrgqzdu[address] [place], [place] [address]DrElizabeth Malone Platelet mean volume (Bld) [Entitic vol] 11.5 fL Normal 9.5-13.5 [facility] Comment on above: Performed By: #### C BC ####[facility] Zxud[address]rrxz[address] [place], [place] [address]Dr. Donna Malone PLT 204 103/ul Normal 150-450 [facility] Comment on above: Performed By: #### C BC ####[facility] Wnxyvjjywj4008 [place] [address]Dr. Donna Malone RBC 4.52 106/ul Critically low 4.70-6.10 [facility] Comment on above: Performed By: #### C BC ####[facility] Mnjvhogdyl1566 [place] [address]Dr. Donna Malone WBC 12.0 103/ul Critically high 4.0-11.0 [facility] Comment on above: Performed By: #### C BC ####[facility] Sohhagnxxh16[address] [place] [address]Dr. Donna Malone MAGNESIUMon 11-17-2022 Magnesium [Mass/Vol] 1.9 mg/dL Normal 1.8-2.4 [facility] Comment on above: Performed By: #### C MP, MG ####[facility] Qjrimdsveu3204 [place] [address]Dr. Donna Malone PROF 14(COMP METB)on 023 Albumin [Mass/Vol] 3.2 g/dL Critically low 3.4-5.0 [facility] Comment on above: Performed By: #### C MP, MG ####[facility] Whdrdokrif5051 [place] [address]Dr. Donna Malone Albumin/Globulin [Mass ratio] 1.0 {ratio} Normal [facility] Comment on above: Performed By: #### C MP, MG ####[facility] Gifihbzayk4526 [place] [address]Dr. Donna Malone ALP [Catalytic activity/Vol] 51 U/L Normal 46-116 [facility] Comment on above: Performed By: #### C MP, MG ####[facility] Isgzpisufs[address] [place] [address]Dr. Donna Malone ALT [Catalytic activity/Vol] 16 U/L Normal 16-63 [facility] Comment on above: Performed By: #### C MP, MG ####[facility] Sfrsxwuvhd5[address] [place] [address]Dr. Donna Malone Anion gap [Moles/Vol] 14.7 mmol/L Normal [facility] Comment on above: Performed By: #### C MP, MG ####[facility] Oialhszzst423[address] [place], [place] [address]Dr. Donna Malone AST [Catalytic activity/Vol] 24 U/L Normal 15-37 [facility] Comment on above: Performed By: #### C MP, MG ####[facility] Ppjgdfighx397[address] [place], [place] [address]Dr. Donna Faisal Bilirubin [Mass/Vol] 0.5 mg/dL Normal 0.2-1.0 [facility] Comment on above: Performed By: #### C MP, MG ####[facility] Qdmnfaekvj89[address] [place], [place] [address]Dr. Donna Faisal Calcium [Mass/Vol] 8.6 mg/dL Normal 8.5-10.1 [facility] Comment on above: Performed By: #### C MP, MG ####[facility] Gfnotjqkua817[address] [place], [place] [address]Dr. Rubyyvan Malone Chloride [Moles/Vol] 108 mmol/L Critically high 98-107 [facility] Comment on above: Performed By: #### C MP, MG ####[facility] Jnoatlidnl0311[address] [place], [place] [address]Dr. Donna Faisal CO2 [Moles/Vol] 21.6 mmol/L Normal 21.0-32.0 [facility] Comment on above: Performed By: #### C MP, MG ####[facility] Jznmpkpfiv7545[address] [place], [place] [address]Dr. Rubyyvan Malone Creatinine [Mass/Vol] 0.83 mg/dL Normal 0.70-1.30 [facility] Comment on above: Performed By: #### C MP, MG ####[facility] Imzlbwdlky936[address] [place], [place] [address]Dr. Donna Faisal EGFR-AF DJIBOUTIAN >60 Normal >=60 [facility] Comment on above: Performed By: #### C MP, MG ####[facility] Xqpcexijrz748[address] [place], [place] [address]Dr. Donna Malone EGFR-NON AF DJIBOUTIAN >60 Normal >=60 [facility] Comment on above: Performed By: #### C MP, MG ####[facility] Mvhweswdrz8304 [place] [address]Dr. Donna Malone Globulin (S) [Mass/Vol] 3.2 g/dL Normal [facility] Comment on above: Performed By: #### C MP, MG ####[facility] Nxvcotqvnx7386 [place] [address]Dr. Donna Malone Glucose [Mass/Vol] 162 mg/dL Critically high 74-106 [facility] Comment on above: Performed By: #### C MP, MG ####[facility] Ezbkywgfoz5888 [place] [address]Dr. Donna Malone Potassium [Moles/Vol] 3.3 mmol/L Critically low 3.5-5.1 [facility] Comment on above: Performed By: #### C MP, MG ####[facility] Tvifqgupad904[address] [place], [place] [address]Dr. Donna Malone Protein [Mass/Vol] 6.4 g/dL Normal 6.4-8.2 [facility] Comment on above: Performed By: #### C MP, MG ####[facility] Zmwjimczbd0088[address] [place], [place] [address]Dr. Donna Malone Sodium [Moles/Vol] 141 mmol/L Normal 136-145 [facility] Comment on above: Performed By: #### C MP, MG ####[facility] Abujzbjzpb[address] [place] [address]Dr. Donna Malone Urea nitrogen [Mass/Vol] 12.0 mg/dL Normal 7.0-18.0 [facility] Comment on above: Performed By: #### C MP, MG ####[facility] Xhbxfqyytx7765[address] [place], [place] [address]Dr. Donna Malone Urea nitrogen/Creatinine [Mass ratio] 14.5 mg/mg Normal [facility] Comment on above: Performed By: #### C MP, MG ####[facility] Xokcdmjffl[address] [place], [place] [address]Dr. Donna Malone AMMONIAon 11-16-2022 Ammonia (P) [Mass/Vol] ug/dL Critically low 11-32 [facility] Comment on above: Performed By: #### A MM ####[facility] Llghpqrfev628[address] [place], [place] [address]Dr. Dnona Malone CBC AUTO DIFFon 11-16-2022 BASO # 0.0 103/ul Normal 0.0-0.1 [facility] Comment on above: Performed By: #### C BC ####[facility] Tddxsztptv475[address] [place], [place] [address]Dr. Donna Faisal Basophils/100 WBC (Bld) 0.2 % Normal 0.2-2.0 [facility] Comment on above: Performed By: #### C BC ####[facility] Hbowrzjgui213[address] [place], [place] [address]Dr. Donna Malone EO # 0.0 103/ul Normal 0.0-0.7 [facility] Comment on above: Performed By: #### C BC ####[facility] Tnhvgfmifz625[address] [place], [place] [address]Dr. Donna Malone Eosinophils/100 WBC (Bld) 0.0 % Critically low 0.9-7.0 [facility] Comment on above: Performed By: #### C BC ####[facility] Yapbstogck018[address] [place], [place] [address]Dr. Rubyyvan Malone Erythrocyte distribution width (RBC) [Ratio] 14.4 % Normal 11.0-15.0 [facility] Comment on above: Performed By: #### C BC ####[facility] Rzlwgmwtvg27[address] [place], [place] [address]Dr. Donna Malone Hematocrit (Bld) [Volume fraction] 38.6 % Critically low 42.0-54.0 [facility] Comment on above: Performed By: #### C BC ####[facility] Ykvlbbazlg0938[address] [place], [place] [address]Dr. Donna Malone Hemoglobin (Bld) [Mass/Vol] 13.1 g/dL Critically low 14.0-18.0 [facility] Comment on above: Performed By: #### C BC ####[facility] Ctechkuqdw34[address] [place] [id number]. Donna Malone IG # 0.05 10e3/ul Critically high 0.00-0.03 [facility] Comment on above: Performed By: #### C BC ####[facility] Dczqhpyxvw7[address] [place] [id number] Malone IG % 0.5 % Normal 0.0-0.5 [facility] Comment on above: Performed By: #### C BC ####[facility] Zspbuaapsu7818 [place] [address]DrElizabeth Malone LYMPH # 1.0 103/ul Critically low 1.2-3.8 [facility] Comment on above: Performed By: #### C BC ####[facility] Fujzzrjraa5369 [place] [address]DrElizabeth Malone Lymphocytes/100 WBC (Bld) 10.8 % Critically low 20.5-60.0 [facility] Comment on above: Performed By: #### C BC ####[facility] Vegvgxgbjn425[address] [place], [place] [address]DrElizabeth Malone MANUAL DIFF REQ NO Normal [facility] Comment on above: Performed By: #### C BC ####[facility] Xcrxmdjrrj8638 [place] [address]DrElizabeth Malone MCH (RBC) [Entitic mass] 29.4 pg Normal 25.9-34.0 [facility] Comment on above: Performed By: #### C BC ####[facility] Elwfxdjodu819[address] [place], [place] [address]Dr. Donna Faisal MCHC (RBC) [Mass/Vol] 33.9 g/dL Normal 29.9-35.2 [facility] Comment on above: Performed By: #### C BC ####[facility] Qlfvqdcska4849 [place] [address]Dr. Donna Malone MCV (RBC) [Entitic vol] 86.7 fL Normal 80.0-94.0 [facility] Comment on above: Performed By: #### C BC ####[facility] Gxwovrmfqc8[address] [place] [id number]. Donna Malone MONO # 0.4 103/ul Normal 0.3-0.8 [facility] Comment on above: Performed By: #### C BC ####[facility] Ntxmnpkcmj0913 [place] [id number]. Donna Malone Monocytes/100 WBC (Bld) 4.4 % Normal 1.7-12.0 [facility] Comment on above: Performed By: #### C BC ####[facility] Ducafnsqxl0267 [place] [id number]. Donna Malone NEUT # 7.9 103/ul Critically high 1.4-6.5 [facility] Comment on above: Performed By: #### C BC ####[facility] Udjbeygfrr9679 [place] [address]Dr. Donna Malone Neutrophils/100 WBC (Bld) 84.1 % Critically high 43.0-75.0 [facility] Comment on above: Performed By: #### C BC ####[facility] Zrhuamveme4206 [place] [phone]. Donna Malone Platelet mean volume (Bld) [Entitic vol] 11.3 fL Normal 9.5-13.5 [facility] Comment on above: Performed By: #### C BC ####[facility] Owvoguqsoj07[address] [place], [place] [address]Dr. Donna Malone PLT 201 103/ul Normal 150-450 [facility] Comment on above: Performed By: #### C BC ####[facility] Hmjiazotvl22[address] [place], [place] [address]Dr. Donna Malone RBC 4.45 106/ul Critically low 4.70-6.10 [facility] Comment on above: Performed By: #### C BC ####[facility] Tftnpceart896[address] [place], [place] [address]Dr. Donna Malone WBC 9.3 103/ul Normal 4.0-11.0 [facility] Comment on above: Performed By: #### C BC ####[facility] Pcmccsrynl4144 [place] [address]Dr. Donna Malone GLYCOHEMOGLOBIN A1Con 2022 ADA RECOMMENDATION SEE BELOW Normal [facility] Comment on above: Result Comment: ADA RECOMMENDED LIMIT 4.0 - 6.0 ADA THERAPEUTIC TARGET < 7.0 ACTION SUGGESTED > 7.0 Performed By: #### A 1C ####[facility] Mnbpanljrb4701[address] [place], [place] [address]Dr. Donna Malone Glucose [Mass/Vol] 128 mg/dL Normal [facility] Comment on above: Performed By: #### A 1C ####[facility] Uldvvmpshc612[address] [place], [place] [address]Dr. Donna Malone HbA1c (Bld) [Mass fraction] 6.1 % Normal 4.5-6.2 [facility] Comment on above: Performed By: #### A 1C ####[facility] Myntozofmu9548[address] [place], [place] [address]Dr. Donna Malone MAGNESIUMon 11-16-2022 Magnesium [Mass/Vol] 1.8 mg/dL Normal 1.8-2.4 [facility] Comment on above: Performed By: #### C MP, MG ####[facility] Eghflazmet9099[address] [place], [place] [address]Dr. Donna Malone POINT OF CARE GLUCOSEon 11-07 Glucose [Mass/Vol] 170 mg/dL Critically high 74-106 [facility] Comment on above: Performed By: #### P OCGLUC ####[facility] Mokptsnsra2959[address] [place], [place] [address]Dr. Donna Malone Glucose [Mass/Vol] 158 mg/dL Critically high 74-106 [facility] Comment on above: Performed By: #### P OCGLUC ####[facility] Nxjkfcwwoy145[address] [place], [place] [address]Dr. Donna Malone Glucose [Mass/Vol] 176 mg/dL Critically high 74-106 [facility] Comment on above: Performed By: #### P OCGLUC ####[facility] Ngrrbdgrlz539[address] [place], [place] [address]Dr. Donna Malone PROF 14(COMP METB)on 023 Albumin [Mass/Vol] 3.1 g/dL Critically low 3.4-5.0 [facility] Comment on above: Performed By: #### C MP, MG ####[facility] Ssgbxvozaf4173 [place] [id number]. Donna Malone Albumin/Globulin [Mass ratio] 0.9 {ratio} Normal [facility] Comment on above: Performed By: #### C MP, MG ####[facility] Gdpeztfcdo5522 [place] [address]Dr. Donna Malone ALP [Catalytic activity/Vol] 52 U/L Normal 46-116 [facility] Comment on above: Performed By: #### C MP, MG ####[facility] Jnmpxwbamw1644 [place] [address]Dr. Donna Malone ALT [Catalytic activity/Vol] 13 U/L Critically low 16-63 [facility] Comment on above: Performed By: #### C MP, MG ####[facility] Ddramfvboo7608 [place] [address]Dr. Donna Malone Anion gap [Moles/Vol] 15.7 mmol/L Normal [facility] Comment on above: Performed By: #### C MP, MG ####[facility] Ijaqjgeplb9773 [place] [address]Dr. Donna Malone AST [Catalytic activity/Vol] 16 U/L Normal 15-37 [facility] Comment on above: Performed By: #### C MP, MG ####[facility] Tlubazccou85[address] [place] [address]Dr. Donna Malone Bilirubin [Mass/Vol] 0.5 mg/dL Normal 0.2-1.0 [facility] Comment on above: Performed By: #### C MP, MG ####[facility] Rjdwgxwwbj9969 [place] [address]Dr. Donna Malone Calcium [Mass/Vol] 8.6 mg/dL Normal 8.5-10.1 [facility] Comment on above: Performed By: #### C MP, MG ####[facility] Rzcgtxfiwh7121 [place] [id number]. Donna Malone Chloride [Moles/Vol] 109 mmol/L Critically high 98-107 [facility] Comment on above: Performed By: #### C MP, MG ####[facility] Lqfqoghbse8112 [place] [address]Dr. Donna Malone CO2 [Moles/Vol] 21.7 mmol/L Normal 21.0-32.0 [facility] Comment on above: Performed By: #### C MP, MG ####[facility] Tpuiyvhoxf7484 [place] [address]Dr. Donna Malone Creatinine [Mass/Vol] 0.99 mg/dL Normal 0.70-1.30 [facility] Comment on above: Performed By: #### C MP, MG ####[facility] Uutmuadkrt0206 [place] [address]Dr. Donna Malone EGFR-AF DJIBOUTIAN >60 Normal >=60 [facility] Comment on above: Performed By: #### C MP, MG ####[facility] Wxtvxohrxo0072 [place] [address]Dr. Donna Malone EGFR-NON AF DJIBOUTIAN >60 Normal >=60 [facility] Comment on above: Performed By: #### C MP, MG ####[facility] Nirpwzheyd9739 [place] [address]Dr. Donna Malone Globulin (S) [Mass/Vol] 3.3 g/dL Normal [facility] Comment on above: Performed By: #### C MP, MG ####[facility] Trrsdfzlrw7418 [place] [address]Dr. Donna Malone Glucose [Mass/Vol] 168 mg/dL Critically high 74-106 [facility] Comment on above: Performed By: #### C MP, MG ####[facility] Rlezlgdhtb5945 [place] [address]Dr. Donna Malone Potassium [Moles/Vol] 3.4 mmol/L Critically low 3.5-5.1 [facility] Comment on above: Performed By: #### C MP, MG ####[facility] Nonpefplao3902 [place] [address]Dr. Donna Malone Protein [Mass/Vol] 6.4 g/dL Normal 6.4-8.2 [facility] Comment on above: Performed By: #### C MP, MG ####[facility] Yysuaynaew6103 [place] [address]Dr. Donna Malone Sodium [Moles/Vol] 143 mmol/L Normal 136-145 [facility] Comment on above: Performed By: #### C MP, MG ####[facility] Mzikrmvbll05[address] [place], [place] [address]Dr. Donna Malone Urea nitrogen [Mass/Vol] 9.0 mg/dL Normal 7.0-18.0 [facility] Comment on above: Performed By: #### C MP, MG ####[facility] Lviwiqyofm610[address] [place], [place] [address]Dr. Donna Malone Urea nitrogen/Creatinine [Mass ratio] 9.1 mg/mg Normal [facility] Comment on above: Performed By: #### C MP, MG ####[facility] Tgkngmhbho377271 [address] [place], [place] [address]Dr. Donna Malone XR CHEST 2 Von 11-16-2022 XR CHEST 2 V Normal [facility] AMMONIAon 11-15-2022 Ammonia (P) [Moles/Vol] 20 umol/L Normal 11-32 [facility] Comment on above: Performed By: #### A MM ####[facility] Xygksqdudi5912[address] [place], [place] [address]Dr. Donna Malone CBC AUTO DIFFon 11-15-2022 BASO # 0.0 103/ul Normal 0.0-0.1 [facility] Comment on above: Performed By: #### C BC ####[facility] Tyutzefkvq4660[address] [place], [place] [address]Dr. Donna Malone Basophils/100 WBC (Bld) 0.5 % Normal 0.2-2.0 [facility] Comment on above: Performed By: #### C BC ####[facility] Neizpmouxa418[address] [place], [place] [address]Dr. Donna Malone EO # 0.1 103/ul Normal 0.0-0.7 [facility] Comment on above: Performed By: #### C BC ####[facility] Opafgpctrn3424 [place] [address]Dr. Donna Faisal Eosinophils/100 WBC (Bld) 1.4 % Normal 0.9-7.0 [facility] Comment on above: Performed By: #### C BC ####[facility] Ophrfvfbvr189[address] [place], [place] [address]Dr. Donna Malone Erythrocyte distribution width (RBC) [Ratio] 14.6 % Normal 11.0-15.0 [facility] Comment on above: Performed By: #### C BC ####[facility] Jcuycijdfc974[address] [place], [place] [address]Dr. Rubyyvan Malone Hematocrit (Bld) [Volume fraction] 36.8 % Critically low 42.0-54.0 [facility] Comment on above: Performed By: #### C BC ####[facility] Jklgjyyulw0767[address] [place], [place] [address]Dr. Donna Malone Hemoglobin (Bld) [Mass/Vol] 12.1 g/dL Critically low 14.0-18.0 [facility] Comment on above: Performed By: #### C BC ####[facility] Hxbymptbzr5633[address] [place], [place] [address]Dr. Rubyyvan Malone IG # 0.01 10e3/ul Normal 0.00-0.03 [facility] Comment on above: Performed By: #### C BC ####[facility] Qsopknpkyj258[address] [place], [place] [address]Dr. Donna Malone IG % 0.2 % Normal 0.0-0.5 [facility] Comment on above: Performed By: #### C BC ####[facility] Wszjdvpfsf277[address] [place], [place] [address]DrElizabeth Malone LYMPH # 1.7 103/ul Normal 1.2-3.8 [facility] Comment on above: Performed By: #### C BC ####[facility] Mwulrxpupq3233[address] [place], [place] [address]Dr. Donna Malone Lymphocytes/100 WBC (Bld) 27.0 % Normal 20.5-60.0 [facility] Comment on above: Performed By: #### C BC ####[facility] Hdupipbqbb2254 [place] [address]DrElizabeth Malone MANUAL DIFF REQ NO Normal [facility] Comment on above: Performed By: #### C BC ####[facility] Tatvnjjizm3757 [place] [address]Dr. Donna Malone MCH (RBC) [Entitic mass] 29.5 pg Normal 25.9-34.0 [facility] Comment on above: Performed By: #### C BC ####[facility] Nfdeskdjls6679[address] [place], [place] [address]DrElizabeth Malone MCHC (RBC) [Mass/Vol] 32.9 g/dL Normal 29.9-35.2 [facility] Comment on above: Performed By: #### C BC ####[facility] Zagqibppnx687[address] [place], [place] [address]DrElizabeth Malone MCV (RBC) [Entitic vol] 89.8 fL Normal 80.0-94.0 [facility] Comment on above: Performed By: #### C BC ####[facility] Nsaphkaepd544[address] [place], [place] [address]DrElizabeth Malone MONO # 0.4 103/ul Normal 0.3-0.8 [facility] Comment on above: Performed By: #### C BC ####[facility] Wcfxgjwvxl000[address] [place], [place] [address]DrElizabeth Malone Monocytes/100 WBC (Bld) 6.7 % Normal 1.7-12.0 [facility] Comment on above: Performed By: #### C BC ####[facility] Xpzhsczqab3259[address] [place], [place] [address]DrElizabeth Malone NEUT # 4.0 103/ul Normal 1.4-6.5 [facility] Comment on above: Performed By: #### C BC ####[facility] Wfphkogdza860[address] [place], [place] [address]DrElizabeth Malone Neutrophils/100 WBC (Bld) 64.2 % Normal 43.0-75.0 [facility] Comment on above: Performed By: #### C BC ####[facility] Pftaklasyw1561 [place] [address]Dr. Donna Malone Platelet mean volume (Bld) [Entitic vol] 11.3 fL Normal 9.5-13.5 [facility] Comment on above: Performed By: #### C BC ####[facility] Jwxwkaqyxa4197 [place] [address]Dr. Donna Malone PLT 169 103/ul Normal 150-450 [facility] Comment on above: Performed By: #### C BC ####[facility] Xnovmozppc906[address] [place], [place] [address]Dr. Donna Malone RBC 4.10 106/ul Critically low 4.70-6.10 [facility] Comment on above: Performed By: #### C BC ####[facility] Mtqvanxqqv4701[address] [place], [place] [address]Dr. Donna Malone WBC 6.3 103/ul Normal 4.0-11.0 [facility] Comment on above: Performed By: #### C BC ####[facility] Raculhxpau283[address] [place], [place] [address]Dr. Donna Malone GLYCOHEMOGLOBIN A1Con 2022 ADA RECOMMENDATION SEE BELOW Normal [facility] Comment on above: Result Comment: ADA RECOMMENDED LIMIT 4.0 - 6.0 ADA THERAPEUTIC TARGET < 7.0 ACTION SUGGESTED > 7.0 Performed By: #### A 1C ####[facility] Krhzhqflns503[address] [place], [place] [address]Dr. Donna Malone Glucose [Mass/Vol] 128 mg/dL Normal [facility] Comment on above: Performed By: #### A 1C ####[facility] Zistckgvwr6922[address] [place], [place] [address]Dr. Donna Malone HbA1c (Bld) [Mass fraction] 6.1 % Normal 4.5-6.2 [facility] Comment on above: Performed By: #### A 1C ####[facility] Otmxixaqbl6158[address] [place], [place] [address]Dr. Donna Malone MAGNESIUMon 11-15-2022 Magnesium [Mass/Vol] 1.6 mg/dL Critically low 1.8-2.4 [facility] Comment on above: Performed By: #### C MP, MG ####[facility] Xojkrmnkup0999 [place] [address]Dr. Donna Malone POINT OF CARE GLUCOSEon Glucose [Mass/Vol] 165 mg/dL Critically high 74-106 [facility] Comment on above: Performed By: #### P OCGLUC ####[facility] Trsjrvurja725[address] [place], [place] [address]Dr. Donna Malone Glucose [Mass/Vol] 155 mg/dL Critically high 74-106 [facility] Comment on above: Performed By: #### P OCGLUC ####[facility] Zvbwwllzwr1740[address] [place], [place] [address]Dr. Donna Malone Glucose [Mass/Vol] 111 mg/dL Critically high 74-106 [facility] Comment on above: Performed By: #### P OCGLUC ####[facility] Jdaknpvufd4838[address] [place], [place] [address]Dr. Donna Malone PROF 14(COMP METB)on 023 Albumin [Mass/Vol] 2.9 g/dL Critically low 3.4-5.0 [facility] Comment on above: Performed By: #### C MP, MG ####[facility] Zvghxizelv4119 [place] [address]Dr. Donna Malone Albumin/Globulin [Mass ratio] 1.0 {ratio} Normal [facility] Comment on above: Performed By: #### C MP, MG ####[facility] Ribfpecfwa9235 [place] [address]Dr. Donna Malone ALP [Catalytic activity/Vol] 38 U/L Critically low 46-116 [facility] Comment on above: Performed By: #### C MP, MG ####[facility] Ocvcyhehga3903 [place] [address]Dr. Donna Malone ALT [Catalytic activity/Vol] 13 U/L Critically low 16-63 [facility] Comment on above: Performed By: #### C MP, MG ####[facility] Zowyfwflka7891 [place] [address]Dr. Donna Malone Anion gap [Moles/Vol] 11.8 mmol/L Normal [facility] Comment on above: Performed By: #### C MP, MG ####[facility] Qphrgqwrwi4127 [place] [address]Dr. Donna Malone AST [Catalytic activity/Vol] 15 U/L Normal 15-37 [facility] Comment on above: Performed By: #### C MP, MG ####[facility] Qhchnrgyfp8873 [place] [address]Dr. Donna Malone Bilirubin [Mass/Vol] 0.4 mg/dL Normal 0.2-1.0 [facility] Comment on above: Performed By: #### C MP, MG ####[facility] Behfzpxuov[address] [place], [place] [address]Dr. Donna Malone Calcium [Mass/Vol] 8.2 mg/dL Critically low 8.5-10.1 [facility] Comment on above: Performed By: #### C MP, MG ####[facility] Lbvpscclws[address] [place], [place] [address]Dr. Donna Malone Chloride [Moles/Vol] 111 mmol/L Critically high 98-107 [facility] Comment on above: Performed By: #### C MP, MG ####[facility] Mzojiuixkh[address] [place], [place] [address]Dr. Donna Malone CO2 [Moles/Vol] 27.9 mmol/L Normal 21.0-32.0 [facility] Comment on above: Performed By: #### C MP, MG ####[facility] Pimzmycnnd83[address] [place], [place] [address]Dr. Donna Malone Creatinine [Mass/Vol] 0.99 mg/dL Normal 0.70-1.30 [facility] Comment on above: Performed By: #### C MP, MG ####[facility] Bkhufxrcnp6210[address] [place], [place] [address]Dr. Donna Malone EGFR-AF DJIBOUTIAN >60 Normal >=60 [facility] Comment on above: Performed By: #### C MP, MG ####[facility] Tokuilygzi[address] [place] [address]Dr. Donna Malone EGFR-NON AF DJIBOUTIAN >60 Normal >=60 [facility] Comment on above: Performed By: #### C MP, MG ####[facility] Yqwatmxlid5[address] [place] [address]Dr. Donna Malone Globulin (S) [Mass/Vol] 2.9 g/dL Normal [facility] Comment on above: Performed By: #### C MP, MG ####[facility] Rzpudvkhyj235[address] [place], [place] [address]Dr. Donna Malone Glucose [Mass/Vol] 88 mg/dL Normal 74-106 [facility] Comment on above: Performed By: #### C MP, MG ####[facility] Ycelyyfnsf16[address] [place], [place] [address]Dr. Donna Malone Potassium [Moles/Vol] 3.7 mmol/L Normal 3.5-5.1 [facility] Comment on above: Performed By: #### C MP, MG ####[facility] Njhgqlrqwv2110[address] [place], [place] [address]Dr. Donna Malone Protein [Mass/Vol] 5.8 g/dL Critically low 6.4-8.2 [facility] Comment on above: Performed By: #### C MP, MG ####[facility] Xzriyzzxfn05[address] [place], [place] [address]Dr. Donna Malone Sodium [Moles/Vol] 147 mmol/L Critically high 136-145 [facility] Comment on above: Performed By: #### C MP, MG ####[facility] Ikajmotvkx107[address] [place], [place] [address]Dr. Donna Malone Urea nitrogen [Mass/Vol] 12.0 mg/dL Normal 7.0-18.0 [facility] Comment on above: Performed By: #### C MP, MG ####[facility] Bkpsurmscb8789[address] [place], [place] [address]Dr. oDnna Malone Urea nitrogen/Creatinine [Mass ratio] 12.1 mg/mg Normal [facility] Comment on above: Performed By: #### C MP, MG ####[facility] Uexqgoserc3033[address] [place], [place] [address]Dr. Donna Malone ACETONE SERUMon 11-14-2022 ACETONE Negative Normal NEGATIVE [facility] Comment on above: Performed By: #### A CETON ####[facility] Ojdquagwxr747[address] [place], [place] [address]Dr. Donna Malone AMMONIAon 11-14-2022 Ammonia (P) [Moles/Vol] 17 umol/L Normal 11-32 [facility] Comment on above: Performed By: #### A MM ####[facility] Xucvgnbmsy618[address] [place], [place] [address]Dr. Donna Malone BLOOD GASES BTYon 11-14-2022 02 MODE ROOM AIR [facility] Comment on above: Performed By: #### A BG ####[facility] Jnvywckcmo560[address] [place], [place] [address]Dr. Donna Malone ALLENS TEST Positive [facility] Comment on above: Performed By: #### A BG ####[facility] Oeqjpsztzy613[address] [place], [place] [address]Dr. Donna Malone Base excess Calc (Bld) [Moles/Vol] 1.1 mmol/L Normal -2.0-2.0 [facility] Comment on above: Performed By: #### A BG ####[facility] Lnuytzowyg4112[address] [place], [place] [address]Dr. Donna Malone BIPAP PRESSURE Normal [facility] Comment on above: Performed By: #### A BG ####[facility] Xtjdivfnok4618[address] [place], [place] [address]Dr. Donna Malone CPAP Normal [facility] Comment on above: Performed By: #### A BG ####[facility] Smfhqojihd959[address] [place], [place] [address]Dr. Donna Malone FIO2 Normal [facility] Comment on above: Performed By: #### A BG ####[facility] Tmmywzysjl719[address] [place], [place] [address]Dr. Donna Malone HCO3 (Bld) [Moles/Vol] 26.0 mmol/L Normal 22.0-26.0 [facility] Comment on above: Performed By: #### A BG ####[facility] Pwxewmgyfs3494 [place] [address]Dr. Donna Malone LPM Normal [facility] Comment on above: Performed By: #### A BG ####[facility] Bohcwxmowj51967[address] [place], [place] [address]Dr. Donna Malone MINUTE VOLUME Normal [facility] Comment on above: Performed By: #### A BG ####[facility] Iouaqkbjfv7832[address] [place], [place] [address]Dr. Donna Malone Oxygen (Bld) [Partial pressure] 62.0 mm[Hg] Critically low 80.0-100.0 [facility] Comment on above: Performed By: #### A BG ####[facility] Nruaakqocn17[address] [place], [place] [address]Dr. Donna Malone Oxygen saturation in Blood 91.9 % Critically low 95.0-100.0 [facility] Comment on above: Performed By: #### A BG ####[facility] Dfpxjjtaqh5259[address] [place], [place] [address]Dr. Donna Malone PCO2 42.8 mmHg Normal 35.0-45.0 [facility] Comment on above: Performed By: #### A BG ####[facility] Cjinoeoqum[address] [place], [place] [address]Dr. Donna Malone PEEP [facility] Comment on above: Performed By: #### A BG ####[facility] Ghnhfegrjs4875[address] [place], [place] [address]Dr. Donna Malone pH (Bld) 7.392 [pH] Normal 7.350-7.45 0 [facility] Comment on above: Performed By: #### A BG ####[facility] Hwgjqijybx450[address] [place], [place] [address]Dr. Donna Malone PIP [facility] Comment on above: Performed By: #### A BG ####[facility] Mpimweeced55[address] [place] [address]Dr. Donna Malone PS Normal [facility] Comment on above: Performed By: #### A BG ####[facility] Zmtsozyten844[address] [place], [place] [address]Dr. Donna Malnoe PUNCTURE SITE LR Normal [facility] Comment on above: Performed By: #### A BG ####[facility] Kuauqsocjd0380[address] [place], [place] [address]Dr. Donna Malone RATE Normal [facility] Comment on above: Performed By: #### A BG ####[facility] Cowbvkrvki244[address] [place], [place] [address]Dr. Donna Malone VENT MODE Normal [facility] Comment on above: Performed By: #### A BG ####[facility] Hyhcvnqyaj2260[address] [place], [place] [address]Dr. Donna Malone VT [facility] Comment on above: Performed By: #### A BG ####[facility] Cgquwlmktl1510[address] [place], [place] [address]Dr. Donna Malone BNPon 11-14-2022 Natriuretic peptide B (Bld) [Mass/Vol] 148.0 pg/mL Normal <=900.0 [facility] Comment on above: Performed By: #### B IRON CARRIER, CMP, HSTROPN ####[facility] Tlduaxeybe2420[address] [place], [place] [address]Dr. Donna Malone CBC AUTO DIFFon 11-14-2022 BASO # 0.0 103/ul Normal 0.0-0.1 [facility] Comment on above: Performed By: #### C BC ####[facility] Eshfpdhyna280[address] [place], [place] [address]Dr. Donna Malone Basophils/100 WBC (Bld) 0.5 % Normal 0.2-2.0 [facility] Comment on above: Performed By: #### C BC ####[facility] Eoipilvvst80[address] [place], [place] [address]Dr. Donna Malone EO # 0.1 103/ul Normal 0.0-0.7 [facility] Comment on above: Performed By: #### C BC ####[facility] Xfvidhjrtx60[address] [place] [id number]. Donna Malone Eosinophils/100 WBC (Bld) 0.6 % Critically low 0.9-7.0 [facility] Comment on above: Performed By: #### C BC ####[facility] Bkcjrtqxbd8884 [place] [address]Dr. Donna Malone Erythrocyte distribution width (RBC) [Ratio] 14.8 % Normal 11.0-15.0 [facility] Comment on above: Performed By: #### C BC ####[facility] Uqpinseuna043[address] [place], [place] [address]Dr. Donna Malone Hematocrit (Bld) [Volume fraction] 41.9 % Critically low 42.0-54.0 [facility] Comment on above: Performed By: #### C BC ####[facility] Fsrsbrlbbl980[address] [place], [place] [address]Dr. Donna Malone Hemoglobin (Bld) [Mass/Vol] 13.6 g/dL Critically low 14.0-18.0 [facility] Comment on above: Performed By: #### C BC ####[facility] Rgnciuxlbd899[address] [place], [place] [address]Dr. Donna Malone IG # 0.01 10e3/ul Normal 0.00-0.03 [facility] Comment on above: Performed By: #### C BC ####[facility] Nydyqmdtgh9737[address] [place], [place] [address]Dr. Donna Malone IG % 0.1 % Normal 0.0-0.5 [facility] Comment on above: Performed By: #### C BC ####[facility] Ohniwoioti625[address] [place], [place] [address]Dr. Donna Malnoe LYMPH # 1.7 103/ul Normal 1.2-3.8 [facility] Comment on above: Performed By: #### C BC ####[facility] Pjymwkmmpv0159[address] [place], [place] [address]Dr. Donna Malone Lymphocytes/100 WBC (Bld) 21.2 % Normal 20.5-60.0 [facility] Comment on above: Performed By: #### C BC ####[facility] Atxmjjvmyl4[address] [place] [address]Dr. Donna Malone MANUAL DIFF REQ NO Normal [facility] Comment on above: Performed By: #### C BC ####[facility] Mnhhehsmeo[address] [place] [phone]. Donna Malone MCH (RBC) [Entitic mass] 29.2 pg Normal 25.9-34.0 [facility] Comment on above: Performed By: #### C BC ####[facility] Ttnfwvuoeg[address] [place], [place] [address]Dr. Donna Malone MCHC (RBC) [Mass/Vol] 32.5 g/dL Normal 29.9-35.2 [facility] Comment on above: Performed By: #### C BC ####[facility] Xarbpkpobf706[address] [place], [place] [address]Dr. Donna Faisal MCV (RBC) [Entitic vol] 90.1 fL Normal 80.0-94.0 [facility] Comment on above: Performed By: #### C BC ####[facility] Lkumtezewr08[address] [place], [place] [address]Dr. Donna Malone MONO # 0.4 103/ul Normal 0.3-0.8 [facility] Comment on above: Performed By: #### C BC ####[facility] Fhyeoprzra8425[address] [place], [place] [address]Dr. Rubyyvan Malone Monocytes/100 WBC (Bld) 5.5 % Normal 1.7-12.0 [facility] Comment on above: Performed By: #### C BC ####[facility] Jbfbxrstzr5589[address] [place], [place] [address]Dr. Donna Malone NEUT # 5.7 103/ul Normal 1.4-6.5 [facility] Comment on above: Performed By: #### C BC ####[facility] Hdensxijhz5467[address] [place], [place] [address]Dr. Donna Malone Neutrophils/100 WBC (Bld) 72.1 % Normal 43.0-75.0 [facility] Comment on above: Performed By: #### C BC ####[facility] Oovvnhhvex[address] [place] [phone]. Donna Malone Platelet mean volume (Bld) [Entitic vol] 11.5 fL Normal 9.5-13.5 [facility] Comment on above: Performed By: #### C BC ####[facility] Udgemgsrad4220 [place] [id number]. Donna Malone PLT 193 103/ul Normal 150-450 [facility] Comment on above: Performed By: #### C BC ####[facility] Esfsvmzmkg1631 [place] [phone]. Donna Malone RBC 4.65 106/ul Critically low 4.70-6.10 [facility] Comment on above: Performed By: #### C BC ####[facility] Fetrncsiui0020 [place] [phone]. Donna Malone WBC 7.9 103/ul Normal 4.0-11.0 [facility] Comment on above: Performed By: #### C BC ####[facility] Sfbplvjonz9[address] [place] [phone]. Donna Malone CT HEAD WO CONon 11-14-2022 CT HEAD WO CON Normal [facility] CULTURE BLOODon 11-14-2022 Microscopic examination of blood, culture Culture Observations: NO GROWTH AT 5 DAYS. Normal [facility] Comment on above: Performed By: #### B LDCX2 ####[facility] Jeiefodang[address] [place] [id number]. Donna Malone Microscopic examination of blood, culture Culture Observations: NO GROWTH AT 5 DAYS. Normal [facility] Comment on above: Performed By: #### B LDCX1 ####[facility] Fpvgrcujnd49[address] [place] [address]Dr. Donna Malone Covid-19 PCR (CVDTB)on SARS-CoV-2 (COVID-19) RNA JOSÉ MIGUEL+probe Ql (Unsp spec) Not detected Normal NOT DETECTED [facility] Comment on above: Result Comment: [...] for this test is supported by the [employer] of Health and Human Service's declaration that [...] be used). Performed By: #### C VDTB ####[facility] Puaqqzpmvv10[address] [place], [place] [address]Dr. Donna Malone DRUG SCREEN RAPID (URINE)on 11-14-2022 AMP Negative Normal NEGATIVE [facility] Comment on above: Performed By: #### D SHARONA, ERUR ####[facility] Mpiyteyqdb65[address] [place] [address]Dr. Donna Malone BAR Negative Normal NEGATIVE [facility] Comment on above: Performed By: #### D SHARONA, ERUR ####[facility] Czlzwbvmfz30[address] [place] [address]Dr. Donna Malone BUP Negative Normal NEGATIVE [facility] Comment on above: Performed By: #### Calvin TABOR, ERUR ####[facility] Sazzrnotua[address] [place] [address]Dr. Donna Malone BZO Negative Normal NEGATIVE [facility] Comment on above: Performed By: #### D SHARONA, ERUR ####[facility] Arcvdnevnz7036 [place] [address]Dr. Donna Malone EVONNE Negative Normal NEGATIVE [facility] Comment on above: Performed By: #### D SHARONA, ERUR ####[facility] Asnvkwrszq523[address] [place], [place] [address]Dr. Donna Malone CUT-OFFS SEE BELOW Normal [facility] Comment on above: Result Comment: [...] ng/mL Performed By: #### Calvin TABOR, ERUR ####[facility] Sdmxteroes3030[address] [place], [place] [address]Dr. [facility] DRUG CUT HEADER DRUG CLASS TEST SYST EM CUT-OFF CONCENTRATIONS ARE FOLLOWS: Normal [facility] Comment on above: Performed By: #### Calvin TABOR, ERUR ####[facility] Phymewukep157[address] [place], [place] [address]Dr. Donna Malone mAMP Negative Normal NEGATIVE [facility] Comment on above: Performed By: #### Calvin TABOR, ERUR ####[facility] Jcxqdwwibe765[address] [place], [place] [address]Dr. Donna Malone MTD Negative Normal NEGATIVE [facility] Comment on above: Performed By: #### Calvin TABOR, ERUR ####[facility] Samonhwqns774[address] [place], [place] [address]Dr. Donna [facility] OPI Negative Normal NEGATIVE [facility] Comment on above: Performed By: #### Calvin TABOR, ERUR ####[facility] Bonzdghars3550[address] [place], [place] [address]Dr. Donna Malone OXY Negative Normal NEGATIVE [facility] Comment on above: Performed By: #### Calvin TABOR, ERUR ####[facility] Pipdijvfgt39[address] [place], [place] [address]Dr. Donna [facility] PCP Negative Normal NEGATIVE [facility] Comment on above: Performed By: #### Calvin TABOR, ERUR ####[facility] Wibttphnds80[address] [place] [address]Dr. Donna Malone PPX Negative Normal NEGATIVE [facility] Comment on above: Performed By: #### Calvin TABOR, ERUR ####[facility] Jhieencarh82[address] [place] [address]Dr. Donna Malone TCA Positive Abnormal NEGATIVE [facility] Comment on above: Performed By: #### Calvin TABOR, ERUR ####[facility] Xwdurcthli6809 [place] [address]Dr. Donna Malone THC Negative Normal NEGATIVE [facility] Comment on above: Performed By: #### Calvin TABOR ERUR ####[facility] Ckqpnksahf6[address] [place], [place] [address]Dr. Donna Malone ER URINE PROFILEon 3 Bilirubin Ql (U) MODERATE Abnormal NEGATIVE [facility] Comment on above: Performed By: #### Calvin TABOR, ERUR ####[facility] Rmvvzaangh018[address] [place], [place] [address]Dr. Donna Malone Clarity (U) CLEAR Normal CLEAR [facility] Comment on above: Performed By: #### Calvin TABOR ERUR ####[facility] Xxpfoyjvvi409[address] [place], [place] [address]Dr. Donna Malone Color (U) DK. YELLOW Normal YELLOW [facility] Comment on above: Performed By: #### Calvin TABOR ERUR ####[facility] Jezhuzyhib[address] [place] [address]Dr. Donna JARRELLAHD A micrscopic examina tion will be performed if indicated. Normal [facility] Comment on above: Performed By: #### Calvin TABOR, ERUR ####[facility] Fbmhkkjrbk97[address] [place], [place] [address]Dr. Donna Malone Glucose Ql (U) Negative Normal NEGATIVE [facility] Comment on above: Performed By: #### Calvin TABOR, ERUR ####[facility] Jfbymompkm3582 [place] [address]Dr. Donna Malone Hemoglobin Ql (U) Negative Normal NEGATIVE [facility] Comment on above: Performed By: #### Calvin TABOR, ERUR ####[facility] Sjmlzmzvgx3314 [place] [address]Dr. Donna Malone Ketones Ql (U) 40 mg/dl Abnormal NEGATIVE [facility] Comment on above: Performed By: #### Calvin TABOR, ERUR ####[facility] Hmnqeegcjq8145 [place] [address]Dr. Donna Malone LEUKOCYTES Negative Normal NEGATIVE [facility] Comment on above: Performed By: #### Calvin TABOR, ERUR ####[facility] Otztjibnse7219 [place] [address]Dr. Donna Malone Nitrite Ql (U) Negative Normal NEGATIVE [facility] Comment on above: Performed By: #### Calvin TABOR, ERUR ####[facility] Fnjykjpuzx6012 [place] [address]Dr. Donna Malone pH (U) 6.0 [pH] Normal 5-9 [facility] Comment on above: Performed By: #### Calvin TABOR, ERUR ####[facility] Gvwexkltkz87[address] [place] [address]Dr. Donna Malone SPEC GRAVITY 1.030 Abnormal 1.005-<=1. 025 [facility] Comment on above: Performed By: #### Calvin TABOR, ERUR ####[facility] Gqeipiwswe0669 [place] [address]Dr. Donna Malone UA PROTEIN TRACE Normal NEGATIVE/ TRACE [facility] Comment on above: Performed By: #### Calvin TABOR, ERUR ####[facility] Edgosldpwy8034 [place] [address]Dr. Donna Malone UR MICRO IND NOT INDICATED Normal [facility] Comment on above: Performed By: #### Calvin TABOR, ERUR ####[facility] Puonzaoxtp8238 [place] [address]Dr. Donna Malone Urobilinogen Qn (U) 1.0 {Jermain'U}/dL Normal 0.2 - 1. 0 [facility] Comment on above: Performed By: #### D RUGRPD, ERUR ####[facility] Dteztzxbsf6002 [place] [address]Dr. Donna Malone LACTATE/LACTIC ACIDon 2022 Lactate [Moles/Vol] 1.6 mmol/L Normal 0.4-1.9 [facility] Comment on above: Performed By: #### L ACT ####[facility] Gwdvzxkwmx7029 [place] [address]Dr. Donna Malone PROF 14(COMP METB)on 023 Albumin [Mass/Vol] 3.4 g/dL Normal 3.4-5.0 [facility] Comment on above: Performed By: #### B IRON CARRIER, CMP, HSTROPN ####[facility] Hcitlgtmxi5862 [place] [address]Dr. Donna Malone Albumin/Globulin [Mass ratio] 1.0 {ratio} Normal [facility] Comment on above: Performed By: #### B IRON CARRIER, CMP, HSTROPN ####[facility] Notjqiqxpr4345 [place] [address]Dr. Donna Malone ALP [Catalytic activity/Vol] 48 U/L Normal 46-116 [facility] Comment on above: Performed By: #### B IRON CARRIER, CMP, HSTROPN ####[facility] Fpfdjogizq2534 [place] [address]Dr. Donna Malone ALT [Catalytic activity/Vol] 13 U/L Critically low 16-63 [facility] Comment on above: Performed By: #### B IRON CARRIER, CMP, HSTROPN ####[facility] Qzdigwugzw6553 [place] [address]Dr. Donna Malone Anion gap [Moles/Vol] 13.2 mmol/L Normal [facility] Comment on above: Performed By: #### B IRON CARRIER, CMP, HSTROPN ####[facility] Etofedcfod9635 [place] [address]Dr. Donna Malone AST [Catalytic activity/Vol] 13 U/L Critically low 15-37 [facility] Comment on above: Performed By: #### B IRON CARRIER, CMP, HSTROPN ####[facility] Lixjztdtku8839 [place] [address]Dr. Donna Malone Bilirubin [Mass/Vol] 0.4 mg/dL Normal 0.2-1.0 [facility] Comment on above: Performed By: #### B IRON CARRIER, CMP, HSTROPN ####[facility] Rwzkkuezwh6984 [place] [address]Dr. Donna Malone Calcium [Mass/Vol] 9.2 mg/dL Normal 8.5-10.1 [facility] Comment on above: Performed By: #### B IRON CARRIER, CMP, HSTROPN ####[facility] Yhemxtccjt2563 [place] [address]Dr. Donna Malone Chloride [Moles/Vol] 108 mmol/L Critically high 98-107 [facility] Comment on above: Performed By: #### B IRON CARRIER, CMP, HSTROPN ####[facility] Wxsmsrcrmb8212 [place] [address]Dr. Donna Malone CO2 [Moles/Vol] 27.0 mmol/L Normal 21.0-32.0 [facility] Comment on above: Performed By: #### B IRON CARRIER, CMP, HSTROPN ####[facility] Clxtjsmjtm39[address] [place], [place] [address]Dr. Donna Malone Creatinine [Mass/Vol] 1.14 mg/dL Normal 0.70-1.30 [facility] Comment on above: Performed By: #### B IRON CARRIER, CMP, HSTROPN ####[facility] Szbtlhviyx[address] [place], [place] [address]Dr. Donna Malone EGFR-AF DJIBOUTIAN >60 Normal >=60 [facility] Comment on above: Performed By: #### B IRON CARRIER, CMP, HSTROPN ####[facility] Bmzcemejqt[address] [place], [place] [address]Dr. Donna Malone EGFR-NON AF DJIBOUTIAN >60 Normal >=60 [facility] Comment on above: Performed By: #### B IRON CARRIER, CMP, HSTROPN ####[facility] Vxpsnsxxsj744[address] [place], [place] [address]Dr. Donna Malone Globulin (S) [Mass/Vol] 3.5 g/dL Normal [facility] Comment on above: Performed By: #### B IRON CARRIER, CMP, HSTROPN ####[facility] Zvncedqgbg7065 [place] [address]Dr. Donna Malone Glucose [Mass/Vol] 126 mg/dL Critically high 74-106 [facility] Comment on above: Performed By: #### B IRON CARRIER, CMP, HSTROPN ####[facility] [address] [place] [address]Dr. Donna Malone Potassium [Moles/Vol] 4.2 mmol/L Normal 3.5-5.1 [facility] Comment on above: Performed By: #### B IRON CARRIER, CMP, HSTROPN ####[facility] Lucnuhvuzv[address] [place], [place] [address]Dr. Donna Malone Protein [Mass/Vol] 6.9 g/dL Normal 6.4-8.2 [facility] Comment on above: Performed By: #### B IRON CARRIER, CMP, HSTROPN ####[facility] Mmznkpurzd[address] [place], [place] [address]Dr. Donna Malone Sodium [Moles/Vol] 144 mmol/L Normal 136-145 [facility] Comment on above: Performed By: #### B IRON CARRIER, CMP, HSTROPN ####[facility] Ohpwpgawjl635[address] [place], [place] [address]Dr. Donna Malone Urea nitrogen [Mass/Vol] 17.0 mg/dL Normal 7.0-18.0 [facility] Comment on above: Performed By: #### B IRON CARRIER, CMP, HSTROPN ####[facility] Psaviezewn214[address] [place], [place] [address]Dr. Donna Malone Urea nitrogen/Creatinine [Mass ratio] 14.9 mg/mg Normal [facility] Comment on above: Performed By: #### B IRON CARRIER, CMP, HSTROPN ####[facility] Oxryroetgm206[address] [place], [place] [address]Dr. Donna Malone TROPONIN, HIGH SENSITIVITYon 11-14-2022 HSTROP 11.2 pg/mL Normal 4.0-76.1 [facility] Comment on above: Result Comment: CUT- OFF POINTS HAVE BEEN ESTABLISHED BASED ON THE FOURTH UNIVERSAL DEFINITIONS OF MYOCARDIALINFARCTION. THE UPPER REFERENCE LIMIT (URL) OF TROPONIN, DEFINED THE 99TH PERCENTILE OFcTnI DISTRIBUTION IN A REFERENCE POPULATION, HAS BEEN CONFIRMED THE DECISION THRESHOLDFOR MD DIAGNOSIS. Performed By: #### B IRON CARRIER, CMP, HSTROPN ####[facility] Xftvjwgvrd3536 [place], [place] [address]Re. Donna Malone XR CHEST 1 Von 11-14-2022 XR CHEST 1 V Normal [facility] XR lumbar spine AP/LAT/FLX/E XTon 11-01-2022 XR lumbar spine AP/LAT/FLX/EXT [facility] [place] [address] XRay Report Signed Patient: Taylor Mcclellan SR MR#: [id number] : 1955 Acct:[id number] Age/Sex: 67 / M ADM Date: 11/01/22 Loc: XD Room: Type: [facility] Attending Dr: Benson Lane MD Copies to: [...] Mj Rodriguez M.D.11/01/2022 3:07 PM Dictation Location: [place] [address] Transcribed By: [facility] 11/01/22 1507 Dictated By: Mj Rodriguez II, MD 11/01/22 1505 Signed By: 11/01/22 1507 [facility] ER URINE PROFILEon 3 Bilirubin Ql (U) Negative Normal NEGATIVE [facility] Comment on above: Performed By: #### E RUR ####[facility] Pniqhnwcwf38[address] [place], [place] [address]Dr. Donna Malone Clarity (U) CLEAR Normal CLEAR [facility] Comment on above: Performed By: #### E RUR ####[facility] Jjxaqsmtay7339[address] [place], [place] [address]Dr. Donna Malone Color (U) YELLOW Normal YELLOW [facility] Comment on above: Performed By: #### E RUR ####[facility] Hcznosblth64[address] [place], [place] [address]Dr. Donna Mlaone ERUAHD A micrscopic examina tion will be performed if indicated. Normal [facility] Comment on above: Performed By: #### E RUR ####[facility] Izyhvyeljb097[address] [place], [place] [address]Dr. Donna Malone Glucose Ql (U) 250 mg/dl Abnormal NEGATIVE [facility] Comment on above: Performed By: #### E RUR ####[facility] Bxqojgskyf29217[address] [place], [place] [address]Dr. Donna Malone Hemoglobin Ql (U) TRACE-INTACT Abnormal NEGATIVE [facility] Comment on above: Performed By: #### E RUR ####[facility] Gimwryowhq614[address] [place], [place] [address]Dr. Donna Malone Ketones Ql (U) Negative Normal NEGATIVE [facility] Comment on above: Performed By: #### E RUR ####[facility] Txeml[address]wh[address] [place] [address]Dr. Donna Malone LEUKOCYTES Negative Normal NEGATIVE [facility] Comment on above: Performed By: #### E RUR ####[facility] Qgbkylauuc6638[address] [place], [place] [address]Dr. Donna Malone Nitrite Ql (U) Negative Normal NEGATIVE [facility] Comment on above: Performed By: #### E RUR ####[facility] Jteyhvvpdd349[address] [place], [place] [address]Dr. Donna Malone pH (U) 5.5 [pH] Normal 5-9 [facility] Comment on above: Performed By: #### E RUR ####[facility] Boucoujldx4545[address] [place], [place] [address]Dr. Donna Malone SPEC GRAVITY 1.025 Normal 1.005-<=1. 025 [facility] Comment on above: Performed By: #### E RUR ####[facility] Lwxvqlnjjl4920[address] [place], [place] [address]Dr. Donna Malone UA PROTEIN Negative Normal NEGATIVE/ TRACE [facility] Comment on above: Performed By: #### E RUR ####[facility] Orjknzfann2465[address] [place], [place] [address]Dr. Donna Malone UR MICRO IND NOT INDICATED Normal [facility] Comment on above: Performed By: #### E RUR ####[facility] Cwlfaotkgc455[address] [place], [place] [address]Dr. Donna Malone Urobilinogen Qn (U) 0.2 {Jermain'U}/dL Normal 0.2 - 1. 0 [facility] Comment on above: Performed By: #### E RUR ####[facility] Duakxwrhul930[address] [place], [place] [address]Dr. Donna Malone CBC AUTO DIFFon 10-26-2022 BASO # 0.0 103/ul Normal 0.0-0.1 [facility] Comment on above: Performed By: #### C BC ####[facility] Svwhmfknda512[address] [place], [place] [address]Dr. Donna Malone Basophils/100 WBC (Bld) 0.4 % Normal 0.2-2.0 [facility] Comment on above: Performed By: #### C BC ####[facility] Wfmtdyzvgc8169 [place] [address]Dr. Donna Malone EO # 0.0 103/ul Normal 0.0-0.7 [facility] Comment on above: Performed By: #### C BC ####[facility] Yozanmbvgv545[address] [place], [place] [address]Dr. Rubyyvan Malone Eosinophils/100 WBC (Bld) 0.0 % Critically low 0.9-7.0 [facility] Comment on above: Performed By: #### C BC ####[facility] Tkebjtxpwu137[address] [place], [place] [address]Dr. Rubyyvan Malone Erythrocyte distribution width (RBC) [Ratio] 14.5 % Normal 11.0-15.0 [facility] Comment on above: Performed By: #### C BC ####[facility] Xxiklsbebp1885[address] [place], [place] [address]DrElizabeth Malone Hematocrit (Bld) [Volume fraction] 41.2 % Critically low 42.0-54.0 [facility] Comment on above: Performed By: #### C BC ####[facility] Ihqxwvheaa713[address] [place], [place] [address]DrElizabeth Donna Faisal Hemoglobin (Bld) [Mass/Vol] 13.7 g/dL Critically low 14.0-18.0 [facility] Comment on above: Performed By: #### C BC ####[facility] Ikcrzycutk497[address] [place], [place] [address]DrElizabeth Malone IG # 0.02 10e3/ul Normal 0.00-0.03 [facility] Comment on above: Performed By: #### C BC ####[facility] Cakoezddsh8280[address] [place], [place] [address]DrElizabeth Malone IG % 0.2 % Normal 0.0-0.5 [facility] Comment on above: Performed By: #### C BC ####[facility] Nqxiiffwza706[address] [place], [place] [address]DrElizabeth Malone LYMPH # 1.2 103/ul Normal 1.2-3.8 [facility] Comment on above: Performed By: #### C BC ####[facility] Csouihxfgr9[address] [place] [address]Dr. Donna Malone Lymphocytes/100 WBC (Bld) 14.4 % Critically low 20.5-60.0 [facility] Comment on above: Performed By: #### C BC ####[facility] Frzgnibnnr06[address] [place] [address]DrElizabeth Malone MANUAL DIFF REQ NO Normal [facility] Comment on above: Performed By: #### C BC ####[facility] Oodnesseun[address] [place] [address]Dr. Donna Malone MCH (RBC) [Entitic mass] 29.4 pg Normal 25.9-34.0 [facility] Comment on above: Performed By: #### C BC ####[facility] Jkpwgtslxz934[address] [place], [place] [address]Dr. Donna Malone MCHC (RBC) [Mass/Vol] 33.3 g/dL Normal 29.9-35.2 [facility] Comment on above: Performed By: #### C BC ####[facility] Rbcxxgauuo5340[address] [place], [place] [address]DrElizabeth Malone MCV (RBC) [Entitic vol] 88.4 fL Normal 80.0-94.0 [facility] Comment on above: Performed By: #### C BC ####[facility] Qygogebhdq847[address] [place], [place] [address]Dr. Donna Malone MONO # 0.2 103/ul Critically low 0.3-0.8 [facility] Comment on above: Performed By: #### C BC ####[facility] Xyfeerseya601[address] [place], [place] [address]Dr. Donna Malone Monocytes/100 WBC (Bld) 2.5 % Normal 1.7-12.0 [facility] Comment on above: Performed By: #### C BC ####[facility] Yvrcqdoqun0815[address] [place], [place] [address]DrElizabeth Malone NEUT # 6.9 103/ul Critically high 1.4-6.5 [facility] Comment on above: Performed By: #### C BC ####[facility] Cixrecixsz4717 [place] [address]Dr. Donna Malone Neutrophils/100 WBC (Bld) 82.5 % Critically high 43.0-75.0 [facility] Comment on above: Performed By: #### C BC ####[facility] Oimkizfobc28[address] [place] [address]Dr. Donna Malone Platelet mean volume (Bld) [Entitic vol] 11.3 fL Normal 9.5-13.5 [facility] Comment on above: Performed By: #### C BC ####[facility] Tftkoszuth0117[address] [place], [place] [address]Dr. Donna Malone PLT 241 103/ul Normal 150-450 [facility] Comment on above: Performed By: #### C BC ####[facility] Lajvnesvzi429[address] [place], [place] [address]Dr. Donna Malone RBC 4.66 106/ul Critically low 4.70-6.10 [facility] Comment on above: Performed By: #### C BC ####[facility] Enuthvyusf4890[address] [place], [place] [address]Dr. Donna Malone WBC 8.4 103/ul Normal 4.0-11.0 [facility] Comment on above: Performed By: #### C BC ####[facility] Mcyebbswio037[address] [place], [place] [address]Dr. Donna Malone CRPon 10-26-2022 CRP [Mass/Vol] mg/L Normal <=1.0 [facility] Comment on above: Performed By: #### C RP, BMP ####[facility] Yiubwmdkbx3467[address] [place], [place] [address]Dr. Donna Malone CT LSPINE WO CONon 3 CT LSPINE WO CON Normal [facility] PROF CHEM 8 (BAS METB)on Anion gap [Moles/Vol] 11.9 mmol/L Normal [facility] Comment on above: Performed By: #### C RP, BMP ####[facility] Oculsccybq35[address] [place] [id number]. Donna Malone Calcium [Mass/Vol] 9.1 mg/dL Normal 8.5-10.1 [facility] Comment on above: Performed By: #### C RP, BMP ####[facility] Twijtcfdgg58[address] [place] [address]Dr. Donna Malone Chloride [Moles/Vol] 104 mmol/L Normal 98-107 [facility] Comment on above: Performed By: #### C RP, BMP ####[facility] Fieorztzja7[address] [place] [address]Dr. Donna Malone CO2 [Moles/Vol] 26.3 mmol/L Normal 21.0-32.0 [facility] Comment on above: Performed By: #### C RP, BMP ####[facility] Dpibihxnpg754[address] [place], [place] [address]Dr. Donna Malone Creatinine [Mass/Vol] 0.99 mg/dL Normal 0.70-1.30 [facility] Comment on above: Performed By: #### C RP, BMP ####[facility] Wwgzheanmg689[address] [place], [place] [address]Dr. Donna Malone EGFR-AF DJIBOUTIAN >60 Normal >=60 [facility] Comment on above: Performed By: #### C RP, BMP ####[facility] Vcuwunhokc8301[address] [place], [place] [address]Dr. Donna Malone EGFR-NON AF DJIBOUTIAN >60 Normal >=60 [facility] Comment on above: Performed By: #### C RP, BMP ####[facility] Bxypxhyhfm224[address] [place], [place] [address]Dr. Donna Malone Glucose [Mass/Vol] 152 mg/dL Critically high 74-106 [facility] Comment on above: Performed By: #### C RP, BMP ####[facility] Oqkfhcjwje4941 [place] [address]Dr. Donna Malone Potassium [Moles/Vol] 4.2 mmol/L Normal 3.5-5.1 [facility] Comment on above: Performed By: #### C RP, BMP ####[facility] Gdkqsrijdt7413 [place] [id number]. Donna Malone Sodium [Moles/Vol] 138 mmol/L Normal 136-145 [facility] Comment on above: Performed By: #### C RP, BMP ####[facility] Tskuyguyqt[address] [place], [place] [address]Dr. Donna Malone Urea nitrogen [Mass/Vol] 12.0 mg/dL Normal 7.0-18.0 [facility] Comment on above: Performed By: #### C RP, BMP ####[facility] Rudrxkhgbe3514 [place] [address]Dr. Donna Malone Urea nitrogen/Creatinine [Mass ratio] 12.1 mg/mg Normal [facility] Comment on above: Performed By: #### C RP, BMP ####[facility] Gxzpogbyrc4300[address] [place], [place] [address]Dr. Donna Malone SED RATE WESTERGRENon 2022 SED RATE 57 mm/hr Critically high <=20 [facility] Comment on above: Performed By: #### S EDR ####[facility] Mwykagwzwz1532[address] [place], [place] [address]Dr. Donna Malone CBC AUTO DIFFon 10-25-2022 BASO # 0.0 103/ul Normal 0.0-0.1 [facility] Comment on above: Performed By: #### C BC ####[facility] Brsxkzwutg913[address] [place], [place] [address]Dr. Donna Faisal Basophils/100 WBC (Bld) 0.4 % Normal 0.2-2.0 [facility] Comment on above: Performed By: #### C BC ####[facility] Szgwwwfnhv3034[address] [place], [place] [address]Dr. Donna Faisal EO # 0.0 103/ul Normal 0.0-0.7 [facility] Comment on above: Performed By: #### C BC ####[facility] Trrdcecicd608[address] [place], [place] [address]Dr. Donna Faisal Eosinophils/100 WBC (Bld) 0.0 % Critically low 0.9-7.0 [facility] Comment on above: Performed By: #### C BC ####[facility] Kcuuimlapc3285 [place] [address]Dr. Donna Malone Erythrocyte distribution width (RBC) [Ratio] 14.5 % Normal 11.0-15.0 [facility] Comment on above: Performed By: #### C BC ####[facility] Fxncwoflnr313[address] [place], [place] [address]Dr. Donna Malone Hematocrit (Bld) [Volume fraction] 43.8 % Normal 42.0-54.0 [facility] Comment on above: Performed By: #### C BC ####[facility] Dmyjtqiegv8435[address] [place], [place] [address]Dr. Donna Malone Hemoglobin (Bld) [Mass/Vol] 14.2 g/dL Normal 14.0-18.0 [facility] Comment on above: Performed By: #### C BC ####[facility] Qhazwfblrp7095[address] [place], [place] [address]DrElizabeth Donna Malone IG # 0.01 10e3/ul Normal 0.00-0.03 [facility] Comment on above: Performed By: #### C BC ####[facility] Aclxfklgva008[address] [place], [place] [address]DrElizabeth Donna Malone IG % 0.1 % Normal 0.0-0.5 [facility] Comment on above: Performed By: #### C BC ####[facility] Mmcpesrvuc[address] [place], [place] [address]DrElizabeth Donna Malone LYMPH # 1.4 103/ul Normal 1.2-3.8 [facility] Comment on above: Performed By: #### C BC ####[facility] Simnmbfmdd3350[address] [place], [place] [address]DrElizabeth Donna Malone Lymphocytes/100 WBC (Bld) 17.1 % Critically low 20.5-60.0 [facility] Comment on above: Performed By: #### C BC ####[facility] Tbzvfbfhqw197[address] [place], [place] [address]DrElizabeth Donna Malone MANUAL DIFF REQ NO Normal [facility] Comment on above: Performed By: #### C BC ####[facility] Xpsvdvrjgs9584 [place] [id number]. Donna Malone MCH (RBC) [Entitic mass] 29.1 pg Normal 25.9-34.0 [facility] Comment on above: Performed By: #### C BC ####[facility] Pjegrajcgh75[address] [place] [id number]. Donna Malone MCHC (RBC) [Mass/Vol] 32.4 g/dL Normal 29.9-35.2 [facility] Comment on above: Performed By: #### C BC ####[facility] Ssjipjojgm0055 [place] [address]Dr. Donna Faisal MCV (RBC) [Entitic vol] 89.8 fL Normal 80.0-94.0 [facility] Comment on above: Performed By: #### C BC ####[facility] Uvnfzmjxdf7727[address] [place], [place] [address]Dr. Donna Faisal MONO # 0.3 103/ul Normal 0.3-0.8 [facility] Comment on above: Performed By: #### C BC ####[facility] Hjbgwhagil1930[address] [place], [place] [address]Dr. Rubyyvan Malone Monocytes/100 WBC (Bld) 4.1 % Normal 1.7-12.0 [facility] Comment on above: Performed By: #### C BC ####[facility] Etqiogltrf107[address] [place], [place] [address]Dr. Donna Malone NEUT # 6.3 103/ul Normal 1.4-6.5 [facility] Comment on above: Performed By: #### C BC ####[facility] Egdghpkkky[address] [place], [place] [address]DrElizabeth Donna Faisal Neutrophils/100 WBC (Bld) 78.3 % Critically high 43.0-75.0 [facility] Comment on above: Performed By: #### C BC ####[facility] Xjkjehgbus215[address] [place], [place] [address]DrElizabeth Rubyyvan Malone Platelet mean volume (Bld) [Entitic vol] 11.3 fL Normal 9.5-13.5 [facility] Comment on above: Performed By: #### C BC ####[facility] Jvpswseqsd2506 [place] [address]Dr. Rubyyvan Malone PLT 271 103/ul Normal 150-450 [facility] Comment on above: Performed By: #### C BC ####[facility] Hligmagvjj389[address] [place], [place] [address]Dr. Rubyyvan Malone RBC 4.88 106/ul Normal 4.70-6.10 [facility] Comment on above: Performed By: #### C BC ####[facility] Hzluwlenvx9539[address] [place], [place] [address]Dr. Rubyyvan Malone WBC 8.0 103/ul Normal 4.0-11.0 [facility] Comment on above: Performed By: #### C BC ####[facility] Ctycnwxhyp787[address] [place], [place] [address]Dr. Donna Malone ER URINE PROFILEon 3 Bilirubin Ql (U) Negative Normal NEGATIVE [facility] Comment on above: Performed By: #### E RUR ####[facility] Xzhswzxxih809[address] [place], [place] [address]Dr. Donna Malone Clarity (U) CLEAR Normal CLEAR [facility] Comment on above: Performed By: #### E RUR ####[facility] Qvdpxqrlmf1710[address] [place], [place] [address]Dr. Donna Malone Color (U) YELLOW Normal YELLOW [facility] Comment on above: Performed By: #### E RUR ####[facility] Ofaaqxartw3567[address] [place], [place] [address]Dr. Donna Malone ERUAHD A micrscopic examina tion will be performed if indicated. Normal [facility] Comment on above: Performed By: #### E RUR ####[facility] Tfuhfivfrs6627[address] [place], [place] [address]Dr. Donna Malone Glucose Ql (U) 100 mg/dl Abnormal NEGATIVE [facility] Comment on above: Performed By: #### E RUR ####[facility] Bigasjxjkp250[address] [place], [place] [address]Dr. Donna Malone Hemoglobin Ql (U) Negative Normal NEGATIVE [facility] Comment on above: Performed By: #### E RUR ####[facility] Kdlzhstclm9544[address] [place], [place] [address]Dr. Donna Malone Ketones Ql (U) TRACE Abnormal NEGATIVE [facility] Comment on above: Performed By: #### E RUR ####[facility] Fyoavbjudt176[address] [place], [place] [address]Dr. Donna Malone LEUKOCYTES Negative Normal NEGATIVE [facility] Comment on above: Performed By: #### E RUR ####[facility] Qtuwvpnarr154[address] [place], [place] [address]Dr. Donna Malone Nitrite Ql (U) Negative Normal NEGATIVE [facility] Comment on above: Performed By: #### E RUR ####[facility] Rtmgjrroox434[address] [place], [place] [address]Dr. Donna Malone pH (U) 6.0 [pH] Normal 5-9 [facility] Comment on above: Performed By: #### E RUR ####[facility] Mnizhqyojq4426[address] [place], [place] [address]Dr. Donna Malone SPEC GRAVITY >=1.030 Abnormal 1.005-<=1. 025 [facility] Comment on above: Performed By: #### E RUR ####[facility] Uwxerjvtso924[address] [place], [place] [address]Dr. Donna Malone UA PROTEIN Negative Normal NEGATIVE/ TRACE [facility] Comment on above: Performed By: #### E RUR ####[facility] Gquahsjbvx3611[address] [place], [place] [address]Dr. Donna Malone UR MICRO IND NOT INDICATED Normal [facility] Comment on above: Performed By: #### E RUR ####[facility] Urwzpjlbrl709[address] [place], [place] [address]Dr. Donna Malone Urobilinogen Qn (U) 0.2 {Jermain'U}/dL Normal 0.2 - 1. 0 [facility] Comment on above: Performed By: #### E RUR ####[facility] Emrcoumjva6729 [place] [address]Dr. Donna Maloen PROF CHEM 8 (BAS METB)on Anion gap [Moles/Vol] 16.4 mmol/L Normal [facility] Comment on above: Performed By: #### B MP ####[facility] Vokenfgpfv0065[address] [place], [place] [address]Dr. Donna Malone Calcium [Mass/Vol] 9.4 mg/dL Normal 8.5-10.1 [facility] Comment on above: Performed By: #### B MP ####[facility] Jyowgpultb853[address] [place], [place] [address]Dr. Donna Malone Chloride [Moles/Vol] 103 mmol/L Normal 98-107 [facility] Comment on above: Performed By: #### B MP ####[facility] Cugtkqmxyx0318[address] [place], [place] [address]Dr. Donna Malone CO2 [Moles/Vol] 23.7 mmol/L Normal 21.0-32.0 [facility] Comment on above: Performed By: #### B MP ####[facility] Tayfhbocmj7712[address] [place], [place] [address]Dr. Donna Malone Creatinine [Mass/Vol] 1.12 mg/dL Normal 0.70-1.30 [facility] Comment on above: Performed By: #### B MP ####[facility] Kowszlydzk07[address] [place], [place] [address]Dr. Donna Malone EGFR-AF DJIBOUTIAN >60 Normal >=60 [facility] Comment on above: Performed By: #### B MP ####[facility] Zytgzihcls14[address] [place], [place] [address]Dr. Donna Malone EGFR-NON AF DJIBOUTIAN >60 Normal >=60 [facility] Comment on above: Performed By: #### B MP ####[facility] Ieyjxoldja[address] [place], [place] [address]Dr. Donna Malone Glucose [Mass/Vol] 170 mg/dL Critically high 74-106 [facility] Comment on above: Performed By: #### B MP ####[facility] Y[address]xfl[address]ssrf[address] [place], [place] [address]Dr. Donna Malone Potassium [Moles/Vol] 4.1 mmol/L Normal 3.5-5.1 [facility] Comment on above: Performed By: #### B MP ####[facility] [address] [place] [address]Dr. Donna Malone Sodium [Moles/Vol] 139 mmol/L Normal 136-145 [facility] Comment on above: Performed By: #### B MP ####[facility] Bjwj[address]udybb[address] [place] [address]Dr. Donna Faisal Urea nitrogen [Mass/Vol] 9.0 mg/dL Normal 7.0-18.0 [facility] Comment on above: Performed By: #### B MP ####[facility] Dqaf[address]av[address] [place], [place] [address]Dr. Donna Faisal Urea nitrogen/Creatinine [Mass ratio] 8.0 mg/mg Normal [facility] Comment on above: Performed By: #### B MP ####[facility] Qouplnerwi[address] [place], [place] [address]Dr. Donna Faisal ACETONE SERUMon 08-10-2022 ACETONE Negative Normal NEGATIVE [facility] Comment on above: Performed By: #### A CETON ####[facility] C[address] [place], [place] [address]Dr. Donna Faisal CBC AUTO DIFFon 08-10-2022 BASO # 0.1 103/ul Normal 0.0-0.1 [facility] Comment on above: Performed By: #### C BC ####[facility] [address] [place] [address]Dr. Donna Faisal Basophils/100 WBC (Bld) 0.7 % Normal 0.2-2.0 [facility] Comment on above: Performed By: #### C BC ####[facility] M[address] [place], [place] [address]Dr. Donna Malone EO # 0.2 103/ul Normal 0.0-0.7 [facility] Comment on above: Performed By: #### C BC ####[facility] [address] [place], [place] [id number]. Donna Malone Eosinophils/100 WBC (Bld) 2.0 % Normal 0.9-7.0 [facility] Comment on above: Performed By: #### C BC ####[facility] [address] [place], [place] [address]Dr. Donna Malone Erythrocyte distribution width (RBC) [Ratio] 14.3 % Normal 11.0-15.0 [facility] Comment on above: Performed By: #### C BC ####[facility] Af[address] [place], [place] [address]Dr. Donna Malone Hematocrit (Bld) [Volume fraction] 37.3 % Critically low 42.0-54.0 [facility] Comment on above: Performed By: #### C BC ####[facility] Nyzq[address] [place], [place] [address]Dr. Donna Malone Hemoglobin (Bld) [Mass/Vol] 12.1 g/dL Critically low 14.0-18.0 [facility] Comment on above: Performed By: #### C BC ####[facility] T[address]urw[address]isx[address] [place], [place] [address]Dr. Donna Malone IG # 0.03 10e3/ul Normal 0.00-0.03 [facility] Comment on above: Performed By: #### C BC ####[facility] Onjamfbcng[address] [place], [place] [address]Dr. Donna Malone IG % 0.4 % Normal 0.0-0.5 [facility] Comment on above: Performed By: #### C BC ####[facility] Toadbxgbnx[address] [place], [place] [address]Dr. Donna Malone LYMPH # 1.3 103/ul Normal 1.2-3.8 [facility] Comment on above: Performed By: #### C BC ####[facility] Xljoeicahm[address] [place], [place] [address]Dr. Donna Malone Lymphocytes/100 WBC (Bld) 18.3 % Critically low 20.5-60.0 [facility] Comment on above: Performed By: #### C BC ####[facility] V[address]cs[address] [place] [address]Dr. Donna Malone MANUAL DIFF REQ NO Normal [facility] Comment on above: Performed By: #### C BC ####[facility] [address]cmf[address] [place] [address]Dr. Donna Malone MCH (RBC) [Entitic mass] 30.1 pg Normal 25.9-34.0 [facility] Comment on above: Performed By: #### C BC ####[facility] [address]fcog[address] [place] [address]Dr. Donna Faisal MCHC (RBC) [Mass/Vol] 32.4 g/dL Normal 29.9-35.2 [facility] Comment on above: Performed By: #### C BC ####[facility] Ejt[address]ye[address] [place] [address]Dr. Rubyyvan Malone MCV (RBC) [Entitic vol] 92.8 fL Normal 80.0-94.0 [facility] Comment on above: Performed By: #### C BC ####[facility] Okmrkpdbcd[address] [place], [place] [address]Dr. Donna Faisal MONO # 0.6 103/ul Normal 0.3-0.8 [facility] Comment on above: Performed By: #### C BC ####[facility] Homnp[address]zzqk[address] [place] [address]Dr. Rubyyvan Malone Monocytes/100 WBC (Bld) 7.6 % Normal 1.7-12.0 [facility] Comment on above: Performed By: #### C BC ####[facility] Vfhtpcvcys[address] [place] [address]Dr. Rubyyvan Faisal NEUT # 5.2 103/ul Normal 1.4-6.5 [facility] Comment on above: Performed By: #### C BC ####[facility] [address]ms[address] [place], [place] [address]Dr. Donna Malone Neutrophils/100 WBC (Bld) 71.0 % Normal 43.0-75.0 [facility] Comment on above: Performed By: #### C BC ####[facility] [address]jb[address] [place], [place] [address]Sc. Donna Malone Platelet mean volume (Bld) [Entitic vol] 11.6 fL Normal 9.5-13.5 [facility] Comment on above: Performed By: #### C BC ####[facility] Sz[address]j36[address] [place], [place] [address]Xy. Donna Malone PLT 237 103/ul Normal 150-450 [facility] Comment on above: Performed By: #### C BC ####[facility] Cqocpunccx[address] [place], [place] [address]Ci. Donna Malone RBC 4.02 106/ul Critically low 4.70-6.10 [facility] Comment on above: Performed By: #### C BC ####[facility] Yyptem[address]lx1185 [place], [place] [address]Jx. Donna Malone WBC 7.3 103/ul Normal 4.0-11.0 [facility] Comment on above: Performed By: #### C BC ####[facility] [address]ies[address] [place], [place] [address]Oh. Donna Malone [facility]on SARS-CoV-2 (COVID-19) RNA JOSÉ MIGUEL+probe Ql (Unsp spec) Not detected Normal NOT DETECTED [facility] Comment on above: Result Comment: [...] for this test is supported by the [place] of [employer] and [employer] Service's declaration that [...] be used). Performed By: #### C VDTBH ####[facility] [address] [place] [address]Dr. Donna Malone LACTATE/LACTIC ACIDon 2021 Lactate [Moles/Vol] 1.3 mmol/L Normal 0.4-1.9 [facility] Comment on above: Performed By: #### L ACT ####[facility] Edujodnzjq[address] [place] [address]Dr. Donna Malone PROF 14(COMP METB)on 022 Albumin [Mass/Vol] 2.9 g/dL Critically low 3.4-5.0 [facility] Comment on above: Performed By: #### C MARTI HSTROPN ####[facility] [address]azldvn[address] [place] [address]Dr. Donna Malone Albumin/Globulin [Mass ratio] 0.7 {ratio} Normal [facility] Comment on above: Performed By: #### C MARTI HSTROPN ####[facility] [address] [place] [address]Dr. Donna Malone ALP [Catalytic activity/Vol] 45 U/L Critically low 46-116 [facility] Comment on above: Performed By: #### C MARTI HSTROPN ####[facility] [address]ocfap[address]xyz[address] [place] [address]Dr. Donna Malone ALT [Catalytic activity/Vol] 12 U/L Critically low 16-63 [facility] Comment on above: Performed By: #### C MARTI, HSTROPN ####[facility] Qs[address]tyhxxc[address] [place] [address]Dr. Donna Malone Anion gap [Moles/Vol] 10.9 mmol/L Normal [facility] Comment on above: Performed By: #### C MARTI HSTROPN ####[facility] Aosixoydoe[address] [place] [address]Dr. Donna Malone AST [Catalytic activity/Vol] 10 U/L Critically low 15-37 [facility] Comment on above: Performed By: #### C MARTI, HSTROPN ####[facility] [address] [place] [id number]. Donna Malone Bilirubin [Mass/Vol] 0.3 mg/dL Normal 0.2-1.0 [facility] Comment on above: Performed By: #### C MP, HSTROPN ####[facility] L[address] [place] [address]Dr. Donna Malone Calcium [Mass/Vol] 8.9 mg/dL Normal 8.5-10.1 [facility] Comment on above: Performed By: #### C MP, HSTROPN ####[facility] Tgnmgbolqm[address] [place] [address]Dr. Donna Malone Chloride [Moles/Vol] 106 mmol/L Normal 98-107 [facility] Comment on above: Performed By: #### C MP, HSTROPN ####[facility] Lxcgihoibm[address] [place] [address]Dr. Donna Malone CO2 [Moles/Vol] 29.4 mmol/L Normal 21.0-32.0 [facility] Comment on above: Performed By: #### C MP, HSTROPN ####[facility] Idmgqssequ[address] [place], [place] [address]Dr. oDnna Malone Creatinine [Mass/Vol] 1.15 mg/dL Normal 0.70-1.30 [facility] Comment on above: Performed By: #### C MP, HSTROPN ####[facility] Ifchmzxesn[address] [place] [address]Dr. Donna Malone EGFR-AF DJIBOUTIAN >60 Normal >=60 [facility] Comment on above: Performed By: #### C MP, HSTROPN ####[facility] [address]aptzmi[address] [place] [address]Dr. Donna Malone EGFR-NON AF DJIBOUTIAN >60 Normal >=60 [facility] Comment on above: Performed By: #### C MP, HSTROPN ####[facility] Dzz[address]vsajkr[address] [place] [address]Dr. Donna Malone Globulin (S) [Mass/Vol] 4.2 g/dL Normal [facility] Comment on above: Performed By: #### C MP, HSTROPN ####[facility] Zagkfpgcuv[address] [place] [address]Dr. Donna Malone Glucose [Mass/Vol] 116 mg/dL Critically high 74-106 [facility] Comment on above: Performed By: #### C MP, HSTROPN ####[facility] X[address]khnerw[address] [place] [address]Dr. Donna Malone Potassium [Moles/Vol] 4.3 mmol/L Normal 3.5-5.1 [facility] Comment on above: Performed By: #### C MARTI, HSTROPN ####[facility] T[address]jte[address]xj[address] [place], [place] [address]Dr. Donna Malone Protein [Mass/Vol] 7.1 g/dL Normal 6.4-8.2 [facility] Comment on above: Performed By: #### C MARTI, HSTROPN ####[facility] [address] [place], [place] [address]Dr. Donna Malone Sodium [Moles/Vol] 142 mmol/L Normal 136-145 [facility] Comment on above: Performed By: #### C MARTI, HSTROPN ####[facility] [address]faewgu[address] [place] [address]Dr. Donna Malone Urea nitrogen [Mass/Vol] 9.0 mg/dL Normal 7.0-18.0 [facility] Comment on above: Performed By: #### C MARTI, HSTROPN ####[facility] [address]wfu[address] [place], [place] [address]Dr. Donna Malone Urea nitrogen/Creatinine [Mass ratio] 7.8 mg/mg Normal [facility] Comment on above: Performed By: #### C MARTI, HSTROPN ####[facility] Yjrfzubby[address] [place], [place] [address]Dr. Donna Malone TROPONIN, HIGH SENSITIVITYon 08-10-2022 HSTROP 9.1 pg/mL Normal 4.0-76.1 [facility] Comment on above: Result Comment: CUT- OFF POINTS HAVE BEEN ESTABLISHED BASED ON THE FOURTH UNIVERSAL DEFINITIONS OF MYOCARDIALINFARCTION. THE UPPER REFERENCE LIMIT (URL) OF TROPONIN, DEFINED THE 99TH PERCENTILE OFcTnI DISTRIBUTION IN A REFERENCE POPULATION, HAS BEEN CONFIRMED THE DECISION THRESHOLDFOR MD DIAGNOSIS. Performed By: #### C MARTI HSTRDONNAN ####[facility] [address]tv[address] [place], [place] [address]Ib. Donna Malone XR KNEE RT 4V or >on 022 XR KNEE RT 4V or > Normal [facility] CT HEAD WO CONon 08-05-2022 CT HEAD WO CON Normal [facility] CT [facility] CSPINE WO CON Normal [facility] CT FACIAL BONES WO [facility] FACIAL BONES WO CON Normal Th e [facility] CT LSPINE WO [facility] CT LSPINE WO CON Normal [facility] Glucose Glucometer (BldC) [M ass/Vol]Ordered By: Sang Bauer on 07-20-2022 Glucose [Mass/Vol] 139 mg/dL [facility] Comment on above: Random Glucose Refer ence Range is dependent on time and content of last meal. Glucose of more than 200 mg/dL in a nonstressed, ambulatory subject supports the diagnosis of Diabetes Mellitus. No Panel InformationOrdered By: Sang Bauer on 07-20-2022 Bedside Glucose Comment Glu2: cleaned meter [facility] Cholesterol [Mass/volume] in Serum or PlasmaOrdered By: Sang Bauer on 07-18-2022 Cholesterol [Mass/Vol] 136 mg/dL 140-200 [facility] Comment on above: Chol less than 200 m g/dl low riskChol 201-239 mg/dl borderline riskChol 240 mg/dl and greater high risk Cholesterol in LDL Calc [Mas s/Vol]Ordered By: Sang Bauer on 07-18-2022 Cholesterol in LDL [Mass/Vol] 81 mg/dL 0-100 [facility] Comment on above: LDL ATP III CLASSIFI CATIONLDL less than 100 mg/dL OptimalLDL 100-129 mg/dL Near or above optimalLDL 130-159 mg/dL Borderline highLDL 160-189 mg/dL HighLDL greater than 189 mg/dL Very high Cholesterol in VLDL Calc [Ma ss/Vol]Ordered By: Sang Bauer on 07-18-2022 Cholesterol in VLDL [Mass/Vol] 17 mg/dL [facility] Serum or plasma high density lipoprotein (HDL) cholesterol measurementOrdered By: Sang Bauer on 07-18-2022 Cholesterol in HDL [Mass/Vol] 38 mg/dL 29-71 [facility] Comment on above: HDL CHOL ATP-III CLA SSIFICATION Cardiovascular RiskHDL > or equal to 60 mg/dL LOWHDL < 40 mg/dL HIGH Serum or plasma total choles terol/high density lipoprotein (HDL) cholesterol mass ratOrdered By: Sang Bauer on 07-18-2022 Cholesterol.total/Chol esterol in HDL [Mass ratio] 3.6 {ratio} <5.0 [facility] Triglyceride [Mass/volume] i n Serum or PlasmaOrdered By: Sang Bauer on 07-18-2022 Triglyceride [Mass/Vol] 85 mg/dL 35-149 [facility] Comment on above: TRIG ATP [...] aPTT Coag (PPP) [Time] 35.8 s 25.1-36.5 [facility] Albumin [Mass/volume] in Ser um or PlasmaOrdered By: Gayathri Leal on 07-17-2022 Albumin [Mass/Vol] 3.1 g/dL 3.2-5.5 [facility] Amphetamine Screen Ql (U)Ord ered By: Gayathri Leal on 07-17-2022 Amphetamines Ql (U) Negative Negative [facility] Automated erythrocytes count in urine sediment (number/area)Ordered By: Gayathri Leal on 07-17-2022 RBC Auto (Urine sed) [#/Area] 3-4 [HPF] 0-4 [facility] Automated leukocytes count i n urine sediment (number/area)Ordered By: Gayathri Leal on 07-17-2022 WBC Auto (Urine sed) [#/Area] 1-2 [HPF] 0-4 [facility] Barbiturates [Presence] in U rineOrdered By: Gayathri Leal on 07-17-2022 Barbiturates Ql (U) Negative Negative [facility] Basophils Auto (Bld) [#/Vol] Ordered By: Gayathri Leal on 07-17-2022 Basophils (Bld) [#/Vol] 0.1 10*3/uL 0.0-0.2 [facility] Basophils/100 WBC Auto (Bld) Ordered By: Gayathri Leal on 07-17-2022 Basophils/100 WBC (Bld) 1.0 % . [facility] Benzodiazepines [Presence] i n UrineOrdered By: Gayathri Leal on 07-17-2022 Benzodiazepines Ql (U) Positive Negative [facility] Bilirubin Test strip Ql (U)O rdered By: Gayathri Leal on 07-17-2022 Bilirubin Ql (U) Negative Negative [facility] COVID CepheidOrdered By: Olya Leal on 07-17-2022 SARS-CoV-2 (COVID-19) Ab IA Ql Negative Negative [facility] Comment on above: This is a duplicate [employer] Xpert Xpress CoV-2/Flu/RSV Plus RNA by RT-PCR result to be used for statistical tracking purpose only. SARS-CoV-2 (COVID-19) RNA JOSÉ MIGUEL+probe Ql (Unsp spec) [facility] Cannabinoids [Presence] in U rine by Screen methodOrdered By: Gayathri Leal on 07-17-2022 Cannabinoids Screen Ql (U) Negative Negative [facility] Comment on above: These are unconfirme d results and should not be used for legal purposes. Drug Cut-Off Concentration: AMPH 1000 ng/mL EWA 200 ng/mL JOHN 200 ng/mL COCM 300 ng/mL OP 300 ng/mL PCP 25 ng/mL THC 20 ng/mL Color Auto (U)Ordered By: Dung Leal on 07-17-2022 Color (U) Yellow Yellow [facility] Creatine kinase [Enzymatic a ctivity/volume] in Serum or PlasmaOrdered By: Gayathri Leal on 07-17-2022 CK [Catalytic activity/Vol] 137 U/L 22-269 [facility] Creatinine and Glomerular fi ltration rate.predicted panel (S/P/Bld)Ordered By: Gayathri Leal on 07-17-2022 Creatinine [Mass/Vol] 1.06 mg/dL 0.64-1.27 [facility] Direct bilirubin measurement Ordered By: Gayathri Leal on 07-17-2022 Bilirubin.direct [Mass/Vol] mg/dL 0.0-0.4 [facility] Eosinophils Auto (Bld) [#/Vo l]Ordered By: Gayathri Leal on 07-17-2022 Eosinophils (Bld) [#/Vol] 0.1 10*3/uL 0.0-0.45 [facility] Eosinophils/100 WBC Auto (Bl d)Ordered By: Gayathri Leal on 07-17-2022 Eosinophils/100 WBC (Bld) 0.7 % . [facility] Erythrocyte distribution wid th Auto (RBC) [Ratio]Ordered By: Gayathri Leal on 07-17-2022 Erythrocyte distribution width (RBC) [Ratio] 15.8 % 12.0-14.8 [facility] Estimated glomerular filtrat ion rate (GFR) non- AmericanOrdered By: Gayathri Leal on 07-17-2022 GFR/1.73 sq M.predicted among non-blacks MDRD (S/P/Bld) [Vol rate/Area] > 60 mL/Min [facility] Globulin Calc (S) [Mass/Vol] Ordered By: Gayathri Leal on 07-17-2022 Globulin (S) [Mass/Vol] 3.0 g/dL [facility] Glucose mean value [Mass/vol ume] in Blood Estimated from glycated hemoglobinOrdered By: Sang Bauer on 07-17-2022 Average glucose Estimated from glycated hemoglobin (Bld) [Mass/Vol] 114 mg/dL [facility] Hematocrit Auto (Bld) [Volum e fraction]Ordered By: Gayathri Leal on 07-17-2022 Hematocrit (Bld) [Volume fraction] 37.3 % 38.8-50.0 [facility] Hemoglobin A1c percentageOrd ered By: Sang Bauer on 07-17-2022 HbA1c (Bld) [Mass fraction] 5.6 % 4.3-5.6 [facility] Comment on above: Increased risk for d iabetes: 5.7 - 6.4diabetes: >6.4glycemic control for adults with diabetes: <7.0 Hemoglobin [Mass/volume] in BloodOrdered By: Gayathri Leal on 07-17-2022 Hemoglobin (Bld) [Mass/Vol] 12.3 g/dL 13.0-17.0 [facility] Ketones Auto test strip (U) [Mass/Vol]Ordered By: Gayathri Leal on 07-17-2022 Ketones (U) [Mass/Vol] 2+ Negative [facility] Laboratory - Chemistry and C hemistry - challengeOrdered By: Gayathri Leal on 07-17-2022 Natriuretic peptide B (Bld) [Mass/Vol] 116.0 pg/mL 5-100 [facility] Laboratory - CoagulationOrde red By: Gayathri Leal on 07-17-2022 PT Coag (PPP) [Time] 12.5 s 9.0-12.9 [facility] - Drug toxicology Ordered By: Gayathri Leal on 07-17-2022 Opiates Ql (U) Negative Negative [facility] Laboratory - Hematology and Cell countsOrdered By: Gayathri Leal on 07-17-2022 Nucleated RBC/100 WBC (Bld) [Ratio] 0.1 % 0-0.5 [facility] Laboratory - UrinalysisOrder ed By: Gayathri Leal on 07-17-2022 Hyaline casts LM Ql (Urine sed) None seen [LPF] 0-8 [facility] Leukocytes [#/volume] in Blo od by Automated countOrdered By: Gayathri Leal on 07-17-2022 WBC (Bld) [#/Vol] 7.8 10*3/uL 4.5-11.0 [facility] Lymphocytes Auto (Bld) [#/Vo l]Ordered By: Gayathri Leal on 07-17-2022 Lymphocytes (Bld) [#/Vol] 2.3 10*3/uL 1.00-4.8 [facility] Lymphocytes/100 WBC Auto (Bl d)Ordered By: Gayathri Leal on 07-17-2022 Lymphocytes/100 WBC (Bld) 29.5 % . [facility] MCH Auto (RBC) [Entitic mass ]Ordered By: Gayathri Leal on 07-17-2022 MCH (RBC) [Entitic mass] 30.2 pg 27.5-35.2 [facility] MCHC Auto (RBC) [Mass/Vol]Or dered By: Gayathri Leal on 07-17-2022 MCHC (RBC) [Mass/Vol] 33.1 g/dL 32.5-35.6 [facility] MCV Auto (RBC) [Entitic vol] Ordered By: Gayathri Leal on 07-17-2022 MCV (RBC) [Entitic vol] 91.5 fL 83.5-101 [facility] Monocyte %Ordered By: Zeinab Leal on 07-17-2022 Monocyte % 20 umol/L [facility] Monocytes Auto (Bld) [#/Vol] Ordered By: Gayathri Leal on 07-17-2022 Monocytes (Bld) [#/Vol] 0.4 10*3/uL 0.0-0.8 [facility] Monocytes/100 WBC Auto (Bld) Ordered By: Gayathri Leal on 07-17-2022 Monocytes/100 WBC (Bld) 5.4 % . [facility] Neutrophils Auto (Bld) [#/Vo l]Ordered By: Gayathri Leal on 07-17-2022 Neutrophils (Bld) [#/Vol] 4.9 10*3/uL 1.8-7.7 [facility] Neutrophils/100 WBC Auto (Bl d)Ordered By: Gayathri Leal on 07-17-2022 Neutrophils/100 WBC (Bld) 63.4 % . [facility] Nitrite Test strip Ql (U)Ord ered By: Gayathri Leal on 07-17-2022 Nitrite Ql (U) Negative Negative [facility] No Panel InformationOrdered By: Gayathri Leal on 07-17-2022 Estimated GFR () > 60 mL/Min [facility] Comment on above: GFR estimated refere nce range: According to KDOQI guidelines, <60 ml/min/1.73m2 is sufficient to diagnose a patient with chronic kidney disease. Pharmacy Creatinine Clearance (Chem N/A [facility] Phencyclidine Screen Ql (U)O rdered By: Gayathri Leal on 07-17-2022 Phencyclidine Ql (U) Negative Negative [facility] Platelet mean volume Auto (B ld) [Entitic vol]Ordered By: Gayathri Leal on 07-17-2022 Platelet mean volume (Bld) [Entitic vol] 10.2 fL 6.6-10.1 [facility] Platelet poor plasma interna tional normalized ratio (INR) by coagulation assay (relatOrdered By: Gayathri Leal on 07-17-2022 INR Coag (PPP) [Relative time] 1.1 {INR} [facility] Comment on above: INR Therapeutic [...] 07-17-2022 Platelets (Bld) [#/Vol] 239 10*3/uL 150-450 [facility] Protein Auto test strip (U) [Mass/Vol]Ordered By: Gayathri Leal on 07-17-2022 Protein (U) [Mass/Vol] Negative Negative Fi [facility] Protein [Mass/volume] in Ser um or PlasmaOrdered By: Gayathri Leal on 07-17-2022 Protein [Mass/Vol] 6.1 g/dL 6.1-7.9 [facility] RBC Auto (Bld) [#/Vol]Ordere d By: Gayathri Leal on 07-17-2022 RBC (Bld) [#/Vol] 4.07 10*6/uL 3.90-5.60 [facility] Serum or plasma alanine del valle otransferase measurement without P-5'-P (enzymatic activiOrdered By: Gayathri Leal on 07-17-2022 ALT No additional P-5'-P [Catalytic activity/Vol] 13 U/L 10-60 [facility] Serum or plasma albumin/glob ulin mass ratioOrdered By: Gayathri Lael on 07-17-2022 Albumin/Globulin [Mass ratio] 1.0 {ratio} [facility] Serum or plasma alkaline gail sphatase measurement (enzymatic activity/volume)Ordered By: Gayathri Leal on 07-17-2022 ALP [Catalytic activity/Vol] 37 U/L 32-92 [facility] Serum or plasma anion gap de terminationOrdered By: Gayathri Leal on 07-17-2022 Anion gap [Moles/Vol] 12.1 mmol/L 6.0-15.0 [facility] Serum or plasma aspartate am inotransferase measurement (enzymatic activity/volume)Ordered By: Gayathri Leal on 07-17-2022 AST [Catalytic activity/Vol] 15 U/L 10-42 [facility] Serum or plasma calcium deepti urement (mass/volume)Ordered By: Gayathri Leal on 07-17-2022 Calcium [Mass/Vol] 8.8 mg/dL 8.2-10.2 [facility] Serum or plasma chloride deepak surement (moles/volume)Ordered By: Gayathri Leal on 07-17-2022 Chloride [Moles/Vol] 108 mmol/L 95-114 [facility] Serum or plasma creatine kin ase MB (CKMB)/total creatine kinase (CK) ratio by calculaOrdered By: Gayathri Leal on 07-17-2022 CK.MB Calc [Catalytic fraction] 2.6 % 0.00-2.50 [facility] Serum or plasma creatine kin ase MB measurement (mass/volume)Ordered By: Gayathri Leal on 07-17-2022 CK.MB [Mass/Vol] 3.6 ng/mL 0.6-6.3 [facility] Serum or plasma glucose deepti urement (mass/volume)Ordered By: Gayathri Leal on 07-17-2022 Glucose [Mass/Vol] 91 mg/dL 70-100 [facility] Comment on above: ADA recommended refe rence rangeRandom Glucose Reference Range is dependent on time and content of last meal. Glucose of more than 200 mg/dL in a nonstressed, ambulatory subject supports the diagnosis of Diabetes Mellitus. Serum or plasma non-glucuron idated bilirubin measurement (mass/volume)Ordered By: Gayathri Leal on 07-17-2022 Bilirubin.indirect [Mass/Vol] TNP [facility] Comment on above: Test not performed Serum or plasma potassium me asurement (moles/volume)Ordered By: Gayathri Leal on 07-17-2022 Potassium [Moles/Vol] 4.0 mmol/L 3.5-5.1 [facility] Serum or plasma sodium measu rement (moles/volume)Ordered By: Gayathri Leal on 07-17-2022 Sodium [Moles/Vol] 139 mmol/L 136-146 [facility] Serum or plasma total biliru bin measurement (mass/volume)Ordered By: Gayathri Leal on 07-17-2022 Bilirubin [Mass/Vol] 0.8 mg/dL 0.3-1.2 [facility] Serum or plasma total carbon dioxide measurement (moles/volume)Ordered By: Gayathri Leal on 07-17-2022 CO2 [Moles/Vol] 22.9 mmol/L 22.0-30.0 [facility] Serum or plasma urea nitroge n measurement (mass/volume)Ordered By: Gayathri Leal on 07-17-2022 Urea nitrogen [Mass/Vol] 12 mg/dL 9-23 [facility] Specific gravity Auto test s trip (U) [Rel density]Ordered By: Gayathri Leal on 07-17-2022 Specific gravity (U) [Rel density] 1.024 1.001-1.03 0 [facility] Squamous epithelial cells de tection in urine sediment by light microscopyOrdered By: Gayathri Leal on 07-17-2022 Epithelial cells.squamous LM Ql (Urine sed) None seen [HPF] 0-2 [facility] Troponin I.cardiac [Mass/vol ume] in Serum or Plasma by High sensitivity methodOrdered By: Sang Bauer on 07-17-2022 Troponin I.cardiac High sensitivity method [Mass/Vol] 7 pg/mL 0-20 [facility] Urine bacteria detection by automated methodOrdered By: Gayathri Leal on 07-17-2022 Bacteria Auto Ql (U) None seen None Seen [facility] Urine clarity by refractomet ry automatedOrdered By: Gayathri Leal on 07-17-2022 Clarity Refractometry automated (U) Clear Clear [facility] Urine cocaine detectionOrder ed By: Gayathri Leal on 07-17-2022 Cocaine Ql (U) Negative Negative [facility] Urine glucose measurement by automated test strip (mass/volume)Ordered By: Gayathri Leal on 07-17-2022 Glucose Auto test strip (U) [Mass/Vol] Normal mg/dL Normal [facility] Urine hemoglobin detection b y automated test stripOrdered By: Gayathri Leal on 07-17-2022 Hemoglobin Auto test strip Ql (U) Negative Negative [facility] Urine leukocyte esterase det ection by automated test stripOrdered By: Gayathri Leal on 07-17-2022 Leukocyte esterase Auto test strip Ql (U) 1+ Negative [facility] Urobilinogen Auto test strip (U) [Mass/Vol]Ordered By: Gayathri Leal on 07-17-2022 Urobilinogen (U) [Mass/Vol] Normal mg/dL Normal [facility] pH Auto test strip (U)Ordere d By: Gayathri Leal on 07-17-2022 pH (U) 6.5 [pH] 5.0-9.0 [facility] AMMONIAon 07-16-2022 Ammonia (P) [Moles/Vol] 44 umol/L Critically high [facility] Comment on above: Performed By: #### A MM ####[facility] Pxuapqdefl[address] [place], [place] [address]DrElizabeth Malone BNPon 07-16-2022 Natriuretic peptide B (Bld) [Mass/Vol] 236.0 pg/mL Normal <=900.0 [facility] Comment on above: Performed By: #### C MP, BNP ####[facility] [address]wyhso[address] [place] [id number]. Donna Malone CBC AUTO DIFFon 07-16-2022 BASO # 0.1 103/ul Normal 0.0-0.1 [facility] Comment on above: Performed By: #### C BC ####[facility] Lzktxccxqd[address] [place], [place] [address]Dr. Donna Faisal Basophils/100 WBC (Bld) 1.0 % Normal 0.2-2.0 [facility] Comment on above: Performed By: #### C BC ####[facility] Klpnledztv39[address] [place], [place] [address]Dr. Donna Malone EO # 0.2 103/ul Normal 0.0-0.7 [facility] Comment on above: Performed By: #### C BC ####[facility] Gootgaqhot[address] [place], [place] [address]Dr. Donna Malone Eosinophils/100 WBC (Bld) 3.3 % Normal 0.9-7.0 [facility] Comment on above: Performed By: #### C BC ####[facility] Vheaoklqgz767[address] [place], [place] [address]Dr. Donna Malone Erythrocyte distribution width (RBC) [Ratio] 15.1 % Critically high 11.0-15.0 [facility] Comment on above: Performed By: #### C BC ####[facility] Cxt[address]fwufgw[address] [place], [place] [address]Dr. Donna Malone Hematocrit (Bld) [Volume fraction] 36.1 % Critically low 42.0-54.0 [facility] Comment on above: Performed By: #### C BC ####[facility] Wiwribkoiy639[address] [place], [place] [address]Dr. Donna Faisal Hemoglobin (Bld) [Mass/Vol] 12.0 g/dL Critically low 14.0-18.0 [facility] Comment on above: Performed By: #### C BC ####[facility] [address]jfwv[address] [place] [id number]. Donna Malone IG # 0.01 10e3/ul Normal 0.00-0.03 [facility] Comment on above: Performed By: #### C BC ####[facility] Mskflxeoqe5[address] [place] [id number]. Donna Malone IG % 0.2 % Normal 0.0-0.5 [facility] Comment on above: Performed By: #### C BC ####[facility] Wwhihrnash[address] [place] [address]Dr. Donna Malone LYMPH # 2.5 103/ul Normal 1.2-3.8 [facility] Comment on above: Performed By: #### C BC ####[facility] Hltdwnbcuv2802 [place] [address]Dr. Rubyyvan Malone Lymphocytes/100 WBC (Bld) 41.1 % Normal 20.5-60.0 [facility] Comment on above: Performed By: #### C BC ####[facility] Tmxhcxfobp[address] [place] [address]Dr. Donna Malone MANUAL DIFF REQ NO Normal [facility] Comment on above: Performed By: #### C BC ####[facility] Fmxakncnnu80[address] [place] [address]Dr. Donna Malone MCH (RBC) [Entitic mass] 30.6 pg Normal 25.9-34.0 [facility] Comment on above: Performed By: #### C BC ####[facility] [address]rozc[address] [place], [place] [id number]. Donna Malone MCHC (RBC) [Mass/Vol] 33.2 g/dL Normal 29.9-35.2 [facility] Comment on above: Performed By: #### C BC ####[facility] Ooaoydnyln[address] [place], [place] [address]Dr. Donna Malone MCV (RBC) [Entitic vol] 92.1 fL Normal 80.0-94.0 [facility] Comment on above: Performed By: #### C BC ####[facility] Orfnetzyyu26[address] [place] [id number]. Donna Malone MONO # 0.5 103/ul Normal 0.3-0.8 [facility] Comment on above: Performed By: #### C BC ####[facility] Irfsnfmrel9934 [place] [phone]. Donna Malone Monocytes/100 WBC (Bld) 7.4 % Normal 1.7-12.0 [facility] Comment on above: Performed By: #### C BC ####[facility] Jingasojdn9[address] [place] [phone]. Donna Malone NEUT # 2.9 103/ul Normal 1.4-6.5 [facility] Comment on above: Performed By: #### C BC ####[facility] Dwunehvyux[address] [place], [place] [address]Dr. Donna Malone Neutrophils/100 WBC (Bld) 47.0 % Normal 43.0-75.0 [facility] Comment on above: Performed By: #### C BC ####[facility] Vvhstcswbr[address] [place] [address]Dr. Donna Malone Platelet mean volume (Bld) [Entitic vol] 11.4 fL Normal 9.5-13.5 [facility] Comment on above: Performed By: #### C BC ####[facility] Daopflghkn69[address] [place] [phone]. Donna Malone PLT 206 103/ul Normal 150-450 [facility] Comment on above: Performed By: #### C BC ####[facility] [address]xjavyeyho[address] [place], [place] [id number]. Donna Malone RBC 3.92 106/ul Critically low 4.70-6.10 [facility] Comment on above: Performed By: #### C BC ####[facility] Bsaycsqlzg1324 [place] [phone]. Donna Malone WBC 6.1 103/ul Normal 4.0-11.0 [facility] Comment on above: Performed By: #### C BC ####[facility] Krulgkwiam[address] [place] [address]Dr. Donna Malone ECHO LIMITED STUDYon 022 ECHO LIMITED STUDY Normal [facility] MRI BRAIN WO CONon 2 MRI BRAIN WO CON Normal [facility] PROF 14(COMP METB)on 022 Albumin [Mass/Vol] 2.8 g/dL Critically low 3.4-5.0 [facility] Comment on above: Performed By: #### C MP, BNP ####[facility] Pphhduwfzt78[address] [place] [address]Dr. Donna Malone Albumin/Globulin [Mass ratio] 0.9 {ratio} Normal [facility] Comment on above: Performed By: #### C MP, BNP ####[facility] Jruvgobpux1296 [place] [address]Dr. Donna Malone ALP [Catalytic activity/Vol] 36 U/L Critically low 46-116 [facility] Comment on above: Performed By: #### C MP, BNP ####[facility] Pxaacezfpp[address] [place], [place] [address]Dr. Donna Malone ALT [Catalytic activity/Vol] 13 U/L Critically low 16-63 [facility] Comment on above: Performed By: #### C MP, BNP ####[facility] Qnewomapra5211 [place] [address]Dr. Donna Malone Anion gap [Moles/Vol] 10.4 mmol/L Normal [facility] Comment on above: Performed By: #### C MP, BNP ####[facility] Rjgytssqob4065 [place] [address]Dr. Donna Malone AST [Catalytic activity/Vol] 13 U/L Critically low 15-37 [facility] Comment on above: Performed By: #### C MP, BNP ####[facility] Twhevqobrw2500 [place] [address]Dr. Donna Malone Bilirubin [Mass/Vol] 0.3 mg/dL Normal 0.2-1.0 [facility] Comment on above: Performed By: #### C MP, BNP ####[facility] Mrowktdevr5881 [place] [address]Dr. Donna Malone Calcium [Mass/Vol] 8.2 mg/dL Critically low 8.5-10.1 [facility] Comment on above: Performed By: #### C MP, BNP ####[facility] Sejgqnglwo[address] [place], [place] [address]Dr. Donna Malone Chloride [Moles/Vol] 108 mmol/L Critically high 98-107 [facility] Comment on above: Performed By: #### C MP, BNP ####[facility] Coasjdcxfo002[address] [place], [place] [address]Dr. Donna Malone CO2 [Moles/Vol] 25.5 mmol/L Normal 21.0-32.0 [facility] Comment on above: Performed By: #### C MP, BNP ####[facility] Bqhxnmxhmi[address] [place], [place] [address]Dr. Donna Malone Creatinine [Mass/Vol] 0.92 mg/dL Normal 0.70-1.30 [facility] Comment on above: Performed By: #### C MP, BNP ####[facility] Vsmytlgdzu[address] [place], [place] [address]Dr. Donna Malone EGFR-AF DJIBOUTIAN >60 Normal >=60 [facility] Comment on above: Performed By: #### C MP, BNP ####[facility] Yatjpjpryw460[address] [place], [place] [address]Dr. Donna Malone EGFR-NON AF DJIBOUTIAN >60 Normal >=60 [facility] Comment on above: Performed By: #### C MP, BNP ####[facility] Fznjiabxfc301[address] [place], [place] [address]Dr. Donna Malone Globulin (S) [Mass/Vol] 3.2 g/dL Normal [facility] Comment on above: Performed By: #### C MP, BNP ####[facility] Htcbpmcjjl[address] [place], [place] [address]Dr. Donna Malone Glucose [Mass/Vol] 76 mg/dL Normal 74-106 [facility] Comment on above: Performed By: #### C MP, BNP ####[facility] Bwsekkmnju0385 [place] [address]Dr. Donna Malone Potassium [Moles/Vol] 3.9 mmol/L Normal 3.5-5.1 [facility] Comment on above: Performed By: #### C MP, BNP ####[facility] Fuayodlipc[address] [place], [place] [address]Dr. Donna Malone Protein [Mass/Vol] 6.0 g/dL Critically low 6.4-8.2 [facility] Comment on above: Performed By: #### C MP, BNP ####[facility] Onwhfuupdt355[address] [place], [place] [address]Dr. Donna Malone Sodium [Moles/Vol] 140 mmol/L Normal 136-145 [facility] Comment on above: Performed By: #### C MP, BNP ####[facility] Nkwyqzmzap82[address] [place], [place] [address]Dr. Donna Malone Urea nitrogen [Mass/Vol] 12.0 mg/dL Normal 7.0-18.0 [facility] Comment on above: Performed By: #### C MP, BNP ####[facility] Pokqobuclh833[address] [place], [place] [address]Dr. Donna Malone Urea nitrogen/Creatinine [Mass ratio] 13.0 mg/mg Normal [facility] Comment on above: Performed By: #### C MP, BNP ####[facility] Gyoxffkrrm215[address] [place], [place] [address]Dr. Donna Malone VIT B12 AND FOLATEon 022 Cobalamin (Vitamin B12) [Mass/Vol] 532.0 pg/mL Normal 193.0-986. 0 [facility] Comment on above: Performed By: #### B 12FOL ####[facility] Bqrvtgwsqo3264[address] [place], [place] [address]Dr. Donna Faisal FOLATE 13.60 ng/mL Normal 8.60-58.90 [facility] Comment on above: Performed By: #### B 12FOL ####[facility] Kzuovpjdqu[address] [place], [place] [address]Dr. Donna Malone AMMONIAon 07-15-2022 Ammonia (P) [Moles/Vol] 23 umol/L Normal 11- [facility] Comment on above: Performed By: #### A MM ####[facility] Qphwtmwztp8582 [place] [address]Dr. Donna Malone BLOOD GASES BTYon 07-15-2022 02 MODE ROOM AIR [facility] Comment on above: Performed By: #### A BG ####[facility] Psytvhrbay55[address] [place], [place] [address]Dr. Donna Malone ALLENS TEST Positive [facility] Comment on above: Performed By: #### A BG ####[facility] Fatwmlhxbn97[address] [place], [place] [address]Dr. Donna Malone Base excess Calc (Bld) [Moles/Vol] -1.3000 mmol/L Normal -2.0-2.0 [facility] Comment on above: Performed By: #### A BG ####[facility] Eyufzasgqk[address] [place], [place] [address]Dr. Donna Malone BIPAP PRESSURE [facility] Comment on above: Performed By: #### A BG ####[facility] Zzaykqflpd[address] [place], [place] [address]Dr. Donna Malone CPAP [facility] Comment on above: Performed By: #### A BG ####[facility] Gkkhnsnxkb[address] [place], [place] [address]Dr. Donna Malone FIO2 [facility] Comment on above: Performed By: #### A BG ####[facility] Xnlczviaak[address] [place], [place] [address]Dr. Donna Malone HCO3 (Bld) [Moles/Vol] 22.7 mmol/L Normal 22.0-26.0 [facility] Comment on above: Performed By: #### A BG ####[facility] Dsxolylztk[address] [place], [place] [address]Dr. Donna Malone LPM [facility] Comment on above: Performed By: #### A BG ####[facility] Mcetrtejpa[address] [place], [place] [address]Dr. Donna Malone MINUTE VOLUME [facility] Comment on above: Performed By: #### A BG ####[facility] Umqtilxuvi9390 [place] [address]Dr. Donna Malone Oxygen (Bld) [Partial pressure] 77.7 mm[Hg] Critically low 80.0-100.0 [facility] Comment on above: Performed By: #### A BG ####[facility] Irqhvgpvnb264[address] [place], [place] [address]Dr. Donna Malone Oxygen saturation in Blood 95.9 % Normal 95.0-100.0 [facility] Comment on above: Performed By: #### A BG ####[facility] Hrexhftlxf[address] [place], [place] [address]Dr. Donna Malone PCO2 33.0 mmHg Critically low 35.0-45.0 [facility] Comment on above: Performed By: #### A BG ####[facility] Zueraroaeg[address] [place], [place] [address]Dr. Donna Malone PEEP [facility] Comment on above: Performed By: #### A BG ####[facility] Relhkdssda[address] [place], [place] [address]Dr. Donna Malone pH (Bld) 7.446 [pH] Normal 7.350-7.45 0 [facility] Comment on above: Performed By: #### A BG ####[facility] Rosqrvikee[address] [place], [place] [address]Dr. Donna Malone PIP [facility] Comment on above: Performed By: #### A BG ####[facility] Foacjdwpps[address] [place], [place] [address]Dr. Donna Malone PS [facility] Comment on above: Performed By: #### A BG ####[facility] Aapabpglhz[address] [place], [place] [address]Dr. Donna Malone PUNCTURE SITE RB [facility] Comment on above: Performed By: #### A BG ####[facility] Xhrkpcszbg8[address] [place], [place] [address]Dr. Donna Malone RATE [facility] Comment on above: Performed By: #### A BG ####[facility] Helorlkahn[address] [place] [address]Dr. Donna Malone VENT MODE Normal [facility] Comment on above: Performed By: #### A BG ####[facility] Fipollbxhl7382 [place] [address]Dr. Donna Malone VT Normal [facility] Comment on above: Performed By: #### A BG ####[facility] Unopizkfgs1687 [place] [address]Dr. Donna Malone BNPon 2 Natriuretic peptide B (Bld) [Mass/Vol] 111.0 pg/mL Normal <=900.0 [facility] Comment on above: Performed By: #### B IRON CARRIER, CMP, CMADM ####[facility] Jbaqvcvofd[address] [place], [place] [address]Dr. Donna Malone CARDIAC MJ 3-6on 2 CK [Catalytic activity/Vol] 102 U/L Normal 39-308 [facility] Comment on above: Performed By: #### C MREP ####[facility] Wsoioxmoij190[address] [place], [place] [address]Dr. Donna Malone CK.MB [Mass/Vol] 3.67 ng/mL Critically high <=3.60 [facility] Comment on above: Performed By: #### C MREP ####[facility] Haqscvimjr[address] [place], [place] [address]Dr. Donna Malone HSTROP 13.1 pg/mL Normal 4.0-76.1 [facility] Comment on above: Result Comment: CUT- OFF POINTS HAVE BEEN ESTABLISHED BASED ON THE FOURTH UNIVERSAL DEFINITIONS OF MYOCARDIALINFARCTION. THE UPPER REFERENCE LIMIT (URL) OF TROPONIN, DEFINED THE 99TH PERCENTILE OFcTnI DISTRIBUTION IN A REFERENCE POPULATION, HAS BEEN CONFIRMED THE DECISION THRESHOLDFOR MD DIAGNOSIS. Performed By: #### C MREP ####[facility] Kvzroxravv[address] [place], [place] [address]Dr. Donna Malone CK [Catalytic activity/Vol] 89 U/L Normal 39-308 [facility] Comment on above: Performed By: #### C MREP ####[facility] Gzxlxukrba8[address] [place] [address]Dr. Donna Malone CK.MB [Mass/Vol] 3.37 ng/mL Normal <=3.60 [facility] Comment on above: Performed By: #### C MREP ####[facility] Zachsmgqwp4087 [place] [address]Dr. Donna Malone HSTROP 11.2 pg/mL Normal 4.0-76.1 [facility] Comment on above: Result Comment: CUT- OFF POINTS HAVE BEEN ESTABLISHED BASED ON THE FOURTH UNIVERSAL DEFINITIONS OF MYOCARDIALINFARCTION. THE UPPER REFERENCE LIMIT (URL) OF TROPONIN, DEFINED THE 99TH PERCENTILE OFcTnI DISTRIBUTION IN A REFERENCE POPULATION, HAS BEEN CONFIRMED THE DECISION THRESHOLDFOR MD DIAGNOSIS. Performed By: #### C MREP ####[facility] Fwukufrlvz[address] [place], [place] [address]Dr. Donna Malone CARDIAC MJ ADMITon 022 CK [Catalytic activity/Vol] 76 U/L Normal 39-308 [facility] Comment on above: Performed By: #### B IRON CARRIER, CMP, CMADM ####[facility] Mwhutvesie[address] [place] [address]Dr. Donna Malone CK.MB [Mass/Vol] 2.59 ng/mL Normal <=3.60 [facility] Comment on above: Performed By: #### B IRON CARRIER, CMP, CMADM ####[facility] Lprsgjeexh[address] [place] [address]Dr. Donna Malone HSTROP 10.1 pg/mL Normal 4.0-76.1 [facility] Comment on above: Result Comment: CUT- OFF POINTS HAVE BEEN ESTABLISHED BASED ON THE FOURTH UNIVERSAL DEFINITIONS OF MYOCARDIALINFARCTION. THE UPPER REFERENCE LIMIT (URL) OF TROPONIN, DEFINED THE 99TH PERCENTILE OFcTnI DISTRIBUTION IN A REFERENCE POPULATION, HAS BEEN CONFIRMED THE DECISION THRESHOLDFOR MD DIAGNOSIS. Performed By: #### B IRON CARRIER, CMP, CMADM ####[facility] Eegpfsigkl[address] [place] [address]Dr. Donna Malone BINDU 109 ng/mL Critically high 16-96 [facility] Comment on above: Performed By: #### B IRON CARRIER, CMP, CMADM ####[facility] Uwrooozmfu[address] [place] [id number]. Donna Malone CBC AUTO DIFFon 07-15-2022 BASO # 0.0 103/ul Normal 0.0-0.1 [facility] Comment on above: Performed By: #### C BC ####[facility] Qxizcmqnda1692 [place] [id number]. Rubyyvan Malone Basophils/100 WBC (Bld) 0.7 % Normal 0.2-2.0 [facility] Comment on above: Performed By: #### C BC ####[facility] Xjbhlfnzkn5937 [place] [id number]. Rubyyvan Malone EO # 0.1 103/ul Normal 0.0-0.7 [facility] Comment on above: Performed By: #### C BC ####[facility] Rlsjkihndb[address] [place] [address]Dr. Donna Malone Eosinophils/100 WBC (Bld) 2.3 % Normal 0.9-7.0 [facility] Comment on above: Performed By: #### C BC ####[facility] Dejftinxqz0906 [place] [phone]. Donna Malone Erythrocyte distribution width (RBC) [Ratio] 15.2 % Critically high 11.0-15.0 [facility] Comment on above: Performed By: #### C BC ####[facility] Mmqumazprr0705 [place] [phone]. Donna Malone Hematocrit (Bld) [Volume fraction] 34.8 % Critically low 42.0-54.0 [facility] Comment on above: Performed By: #### C BC ####[facility] Njrdstpmqg0434 [place] [id number]. Rubyyvan Malone Hemoglobin (Bld) [Mass/Vol] 11.4 g/dL Critically low 14.0-18.0 [facility] Comment on above: Performed By: #### C BC ####[facility] Bxjqrnxntb39[address] [place] [id number]. Donna Malone IG # 0.01 10e3/ul Normal 0.00-0.03 [facility] Comment on above: Performed By: #### C BC ####[facility] Fiiupmjtei6[address] [place] [address]Dr. Donna Malone IG % 0.2 % Normal 0.0-0.5 [facility] Comment on above: Performed By: #### C BC ####[facility] Nyjpxubswn[address] [place], [place] [address]Dr. Donna Malone LYMPH # 1.6 103/ul Normal 1.2-3.8 [facility] Comment on above: Performed By: #### C BC ####[facility] [address]dwekmvuf[address] [place], [place] [address]Dr. Donna Malone Lymphocytes/100 WBC (Bld) 26.4 % Normal 20.5-60.0 [facility] [employer] Comment on above: Performed By: #### C BC ####[facility] Jucjxqpzsp[address] [place], [place] [address]Dr. Donna Malone MANUAL DIFF REQ NO Normal [facility] Comment on above: Performed By: #### C BC ####[facility] Sefacllrwh7[address] [place], [place] [address]Dr. Donna Malone MCH (RBC) [Entitic mass] 30.7 pg Normal 25.9-34.0 [facility] Comment on above: Performed By: #### C BC ####[facility] Sjoznmtiek64[address] [place], [place] [address]Dr. Donna Malone MCHC (RBC) [Mass/Vol] 32.8 g/dL Normal 29.9-35.2 [facility] Comment on above: Performed By: #### C BC ####[facility] Cacrodzwhl7[address] [place], [place] [address]Dr. Donna Malone MCV (RBC) [Entitic vol] 93.8 fL Normal 80.0-94.0 [facility] Comment on above: Performed By: #### C BC ####[facility] Dgwteswgfu512[address] [place], [place] [address]Dr. Donna Malone MONO # 0.5 103/ul Normal 0.3-0.8 [facility] Comment on above: Performed By: #### C BC ####[facility] Qlhjoeuqda1227 [place] [id number]. Donna Malone Monocytes/100 WBC (Bld) 7.5 % Normal 1.7-12.0 [facility] Comment on above: Performed By: #### C BC ####[facility] Tqfwyytsqi2731 [place] [phone]. Donna Malone NEUT # 3.8 103/ul Normal 1.4-6.5 [facility] Comment on above: Performed By: #### C BC ####[facility] Ywrudrxkhs0089 [place] [id number]. Donna Malone Neutrophils/100 WBC (Bld) 62.9 % Normal 43.0-75.0 [facility] Comment on above: Performed By: #### C BC ####[facility] Jidweqczzg3833 [place] [phone]. Donna Malone Platelet mean volume (Bld) [Entitic vol] 11.7 fL Normal 9.5-13.5 [facility] Comment on above: Performed By: #### C BC ####[facility] Gwxoqmqcjl1860 [place] [phone]. Donna Malone PLT 220 103/ul Normal 150-450 [facility] Comment on above: Performed By: #### C BC ####[facility] Cmkpjneffc4362 [place] [phone]. Donna Malone RBC 3.71 106/ul Critically low 4.70-6.10 [facility] Comment on above: Performed By: #### C BC ####[facility] Piekjostld4458 [place] [id number]. Donna Malone WBC 6.0 103/ul Normal 4.0-11.0 [facility] Comment on above: Performed By: #### C BC ####[facility] Yiffyclxcp3895 [place] [phone]. Donna Malone CT CSPINE WO CONon CT CSPINE WO CON Normal [facility] CT HEAD WO CONon 07-15-2022 CT HEAD WO CON Normal [facility] CTA NECK WO W CONon 07-15-20 22 CTA NECK WO W CON Normal [facility] CULTURE URINEon 07-15-2022 CULTURE URINE Culture Observations : LIGHT GROWTH OF MIXED SKIN MICHAEL. NO POTENTIAL PATHOGENS SEEN. Normal [facility] Comment on above: Performed By: #### U RCX ####[facility] Rxotrtzqcv6014 [place], [place] [address]Rc. Donna Malone Covid-19 PCR ([facility])on SARS-CoV-2 (COVID-19) RNA JOSÉ MIGUEL+probe Ql (Unsp spec) Not detected Normal NOT DETECTED [facility] Comment on above: Result Comment: [...] for this test is supported by the [employer] of [employer] Service's declaration that [...] be used). Performed By: #### C VDTBH ####[facility] Gohuacpcxo7067 [place], [place] [address]Cy. Donna Malone DEPAKENE/VALPROICon 07-15-20 22 DEPAKENE 53.6 ug/ml Normal 50.0-100.0 [facility] Comment on above: Performed By: #### V ALP ####[facility] Fbmkcqsrpc7807 [place], [place] [address]Mq. Donna Malone DRUG SCREEN RAPID (URINE)on 07-15-2022 AMP Negative Normal NEGATIVE [facility] Comment on above: Performed By: #### D RUGRPD, ERUR ####[facility] Vgazsacqyx4116 [place] [phone]. Donna Malone BAR Negative Normal NEGATIVE [facility] Comment on above: Performed By: #### Calvin TABOR, ERUR ####[facility] Biuzsojshe3702 [place] [phone]. Rubyyvan Malone BUP Negative Normal NEGATIVE [facility] Comment on above: Performed By: #### Calvin TABOR, ERUR ####[facility] Knpkwumeta2399 [place] [address]Dr. Donna Malone BZO Positive Abnormal NEGATIVE [facility] Comment on above: Performed By: #### Calvin TABOR, ERUR ####[facility] Gzvcltrobm[address] [place], [place] [address]Dr. Donna Malone EVONNE Negative Normal NEGATIVE [facility] Comment on above: Performed By: #### Calvin TABOR, ERUR ####[facility] Xppoaisuqz3670 [place] [address]Dr. Donna Malone CUT-OFFS SEE BELOW Normal [facility] Comment on above: Result Comment: [...] ng/mL Performed By: #### Calvin TABOR, ERUR ####[facility] Dchperfroy0908 [place] [address]Dr. Donna Malone DRUG CUT HEADER DRUG CLASS TEST SYST EM CUT-OFF CONCENTRATIONS ARE FOLLOWS: Normal [facility] Comment on above: Performed By: #### Calvin TABOR, ERUR ####[facility] Pdcpvqxwki0034 [place] [address]Dr. Donna Malone mAMP Negative Normal NEGATIVE [facility] Comment on above: Performed By: #### D SHARONA, ERUR ####[facility] Xfioohkbwn0555 [place] [address]Dr. Donna Malone MTD Negative Normal NEGATIVE [facility] Comment on above: Performed By: #### D SHARONA, ERUR ####[facility] Tdbyybsbrx0767 [place] [address]Dr. Donna Malone OPI Negative Normal NEGATIVE [facility] Comment on above: Performed By: #### D SHARONA, ERUR ####[facility] Wrcmsnvltv75[address] [place], [place] [address]Dr. Donna Malone OXY Negative Normal NEGATIVE [facility] Comment on above: Performed By: #### D SHARONA, ERUR ####[facility] Uakzwmutdt723[address] [place], [place] [address]Dr. Donna Malone PCP Negative Normal NEGATIVE [facility] Comment on above: Performed By: #### Calvin TABOR, ERUR ####[facility] Ostgxlesym227[address] [place], [place] [address]Dr. Donna Malone PPX Negative Normal NEGATIVE [facility] Comment on above: Performed By: #### Calvin TABOR, ERUR ####[facility] Mqodkbbyxn5927 [place] [address]Dr. Donna Malone TCA Positive Abnormal NEGATIVE [facility] Comment on above: Performed By: #### Calvin TABOR, ERUR ####[facility] Pwmqdbxyxt1650 [place] [address]Dr. Donna Malone THC Negative Normal NEGATIVE [facility] Comment on above: Performed By: #### D SHARONA, ERUR ####[facility] Jcgtsaqabf889[address] [place], [place] [address]Dr. Donna Malone ER URINE PROFILEon 2 Bilirubin Ql (U) Negative Normal NEGATIVE [facility] Comment on above: Performed By: #### D SHARONA, ERUR ####[facility] Njganczxec1948[address] [place], [place] [address]Dr. Donna Malone Clarity (U) CLEAR Normal CLEAR [facility] Comment on above: Performed By: #### Calvin TABOR, ERUR ####[facility] Qwmkghacby4196 [place] [address]Dr. Rubyyvan Faisal Color (U) YELLOW Normal YELLOW [facility] Comment on above: Performed By: #### Calvin TABOR, ERUR ####[facility] Imtlirirsi3865 [place] [address]Dr. Donna Malone ERUAHD A micrscopic examina tion will be performed if indicated. Normal [facility] Comment on above: Performed By: #### Calvin TABOR, ERUR ####[facility] Dahjvgqvfp346[address] [place], [place] [address]Dr. Donna Malone Glucose Ql (U) Negative Normal NEGATIVE [facility] Comment on above: Performed By: #### Calvin TABOR, ERUR ####[facility] Wcsxtlkrkx06[address] [place], [place] [address]Dr. Donna Malone Hemoglobin Ql (U) Negative Normal NEGATIVE [facility] Comment on above: Performed By: #### Calvin TABOR, ERUR ####[facility] Yqvlshcigl7522[address] [place], [place] [address]Dr. Donna Malone Ketones Ql (U) 15 mg/dl Abnormal NEGATIVE [facility] Comment on above: Performed By: #### Calvin TABOR, ERUR ####[facility] Iebkmpjwzf46[address] [place], [place] [address]Dr. Donna Malone LEUKOCYTES Negative Normal NEGATIVE [facility] Comment on above: Performed By: #### Calvin TABOR, ERUR ####[facility] Vtajodiose5[address] [place], [place] [address]Dr. Donna Malone Nitrite Ql (U) Negative Normal NEGATIVE [facility] Comment on above: Performed By: #### Calvin TABOR, ERUR ####[facility] Ksavrdbmeg5242 [place] [address]Dr. Donna Malone pH (U) 6.0 [pH] Normal 5-9 [facility] Comment on above: Performed By: #### D RUGRPD, ERUR ####[facility] Vrkgntggsi0602 [place] [address]Dr. Donna Malone SPEC GRAVITY >=1.030 Abnormal 1.005-<=1. 025 [facility] Comment on above: Performed By: #### D SHARONA, ERUR ####[facility] Kdrjhrowzf4327 [place] [address]Dr. Donna Malone UA PROTEIN TRACE Normal NEGATIVE/ TRACE [facility] Comment on above: Performed By: #### D SHARONA, ERUR ####[facility] Kczxhgnneb2418 [place] [address]Dr. Donna Malone UR MICRO IND NOT INDICATED Normal [facility] Comment on above: Performed By: #### D SHARONA, ERUR ####[facility] Waupyuiybf498[address] [place], [place] [address]Dr. Donna Malone Urobilinogen Qn (U) 0.2 {Jermain'U}/dL Normal 0.2 - 1. 0 [facility] Comment on above: Performed By: #### D SHARONA, ERUR ####[facility] Tpniytiomm04[address] [place], [place] [address]Dr. Donna Malone ETHANOL (BLD ALC)on 07-15-20 22 ALC NOTE NOTE: 80 mg/dl is th e legal limit for a blood alcohol level Normal [facility] Comment on above: Performed By: #### E TH ####[facility] Kilskluuul[address] [place], [place] [address]Dr. Donna Malone Ethanol [Mass/Vol] mg/dL Normal [facility] Comment on above: Performed By: #### E TH ####[facility] Eszlzyjckd174[address] [place], [place] [address]Dr. Donna Malone LACTATE/LACTIC ACIDon 2021 Lactate [Moles/Vol] 1.3 mmol/L Normal 0.4-1.9 [facility] Comment on above: Performed By: #### L ACT ####[facility] Vbbtniunss93[address] [place], [place] [address]Dr. Donna Malone PROF 14(COMP METB)on 022 Albumin [Mass/Vol] 2.9 g/dL Critically low 3.4-5.0 [facility] Comment on above: Performed By: #### B IRON CARRIER, CMP, CMADM ####[facility] Reivljghtc3185 [place] [address]Dr. Donna Malone Albumin/Globulin [Mass ratio] 0.9 {ratio} Normal [facility] Comment on above: Performed By: #### B IRON CARRIER, CMP, CMADM ####[facility] Ulvwaszkcr1458 [place] [address]Dr. Donna Malone ALP [Catalytic activity/Vol] 37 U/L Critically low 46-116 [facility] Comment on above: Performed By: #### B IRON CARRIER, CMP, CMADM ####[facility] Cxsktuxffy9807 [place] [address]Dr. Donna Malone ALT [Catalytic activity/Vol] 10 U/L Critically low 16-63 [facility] Comment on above: Performed By: #### B IRON CARRIER, CMP, CMADM ####[facility] Ptdtjqefno168[address] [place], [place] [address]Dr. Donna Malone Anion gap [Moles/Vol] 8.0 mmol/L Normal [facility] Comment on above: Performed By: #### B IRON CARRIER, CMP, CMADM ####[facility] Olcyekdfqa386[address] [place], [place] [address]Dr. Donna Malone AST [Catalytic activity/Vol] 12 U/L Critically low 15-37 [facility] Comment on above: Performed By: #### B IRON CARRIER, CMP, CMADM ####[facility] Owubpoiqtx3366 [place] [address]Dr. Donna Malone Bilirubin [Mass/Vol] 0.3 mg/dL Normal 0.2-1.0 [facility] Comment on above: Performed By: #### B IRON CARRIER, CMP, CMADM ####[facility] Ikfkexibvj275[address] [place], [place] [address]Dr. Donna Malone Calcium [Mass/Vol] 7.9 mg/dL Critically low 8.5-10.1 [facility] Comment on above: Performed By: #### B IRON CARRIER, CMP, CMADM ####[facility] Lkjvkzkdrm4894 [place] [address]Dr. Donna Malone Chloride [Moles/Vol] 107 mmol/L Normal 98-107 [facility] Comment on above: Performed By: #### B IRON CARRIER, CMP, CMADM ####[facility] Dxeitmohyh6786 [place] [address]Dr. Donna Malone CO2 [Moles/Vol] 27.1 mmol/L Normal 21.0-32.0 [facility] Comment on above: Performed By: #### B IRON CARRIER, CMP, CMADM ####[facility] Pnhgegyfar1954 [place] [address]Dr. Donna Malone Creatinine [Mass/Vol] 0.99 mg/dL Normal 0.70-1.30 [facility] Comment on above: Performed By: #### B IRON CARRIER, CMP, CMADM ####[facility] Cjfzxnzyvm507[address] [place], [place] [address]Dr. Donna Malone EGFR-AF DJIBOUTIAN >60 Normal >=60 [facility] Comment on above: Performed By: #### B IRON CARRIER, CMP, CMADM ####[facility] Qgldsyxfpy9034[address] [place], [place] [address]Dr. Donna Malone EGFR-NON AF DJIBOUTIAN >60 Normal >=60 [facility] Comment on above: Performed By: #### B IRON CARRIER, CMP, CMADM ####[facility] Hgqnfnfmeu2985 [place] [address]Dr. Donna Malone Globulin (S) [Mass/Vol] 3.3 g/dL Normal [facility] Comment on above: Performed By: #### B IRON CARRIER, CMP, CMADM ####[facility] Ghxmfcdqnk9476 [place] [address]Dr. Donna Malone Glucose [Mass/Vol] 101 mg/dL Normal 74-106 [facility] Comment on above: Performed By: #### B IRON CARRIER, CMP, CMADM ####[facility] Bxwsbuhuoa7806 [place] [address]Dr. Donna Malone Potassium [Moles/Vol] 4.1 mmol/L Normal 3.5-5.1 [facility] Comment on above: Performed By: #### B IRON CARRIER, CMP, CMADM ####[facility] Ereinlbzxg4789 [place] [address]Dr. Donna Malone Protein [Mass/Vol] 6.2 g/dL Critically low 6.4-8.2 Th [facility] Comment on above: Performed By: #### B IRON CARRIER, CMP, CMADM ####[facility] Wrttgmhxqt8444 [place] [address]Dr. Donna Malone Sodium [Moles/Vol] 138 mmol/L Normal 136-145 [facility] Comment on above: Performed By: #### B IRON CARRIER, CMP, CMADM ####[facility] Klkufmjcgz4834[address] [place], [place] [address]Dr. Donna Malone Urea nitrogen [Mass/Vol] 16.0 mg/dL Normal 7.0-18.0 [facility] Comment on above: Performed By: #### B IRON CARRIER, CMP, CMADM ####[facility] Kkeiqjckib6668[address] [place], [place] [address]Dr. Donna Malone Urea nitrogen/Creatinine [Mass ratio] 16.2 mg/mg Normal [facility] Comment on above: Performed By: #### B IRON CARRIER, CMP, CMADM ####[facility] Ugfvkqcjui844[address] [place], [place] [address]Dr. Donna Malone PROTIMEon 07-15-2022 INR Coag (PPP) [Relative time] 1.06 {INR} Normal [facility] Comment on above: Performed By: #### P T, PTT ####[facility] Yzleifdgfv54[address] [place], [place] [address]Dr. Donna Malone INR GUIDELINES SEE BELOW Normal [facility] Comment on above: Result Comment: FLORESITA RED INR: 2.0 - 3.0 CONDITIONS NOT LISTED BELOW 2.5 - 3.5 FOR PROSTHETIC HEART VALVE REPLACEMENT 2.5 - 3.5 RECURRENT THROMBOSIS Performed By: #### P T, PTT ####[facility] Ptbrxtrwje288[address] [place], [place] [address]Dr. Donna Malone PT Coag (PPP) [Time] 11.4 s Normal 9.0-11.6 [facility] Comment on above: Performed By: #### P T, PTT ####[facility] Stfxuvspbk430[address] [place], [place] [address]Dr. Donna Malone PTTon 07-15-2022 aPTT Coag (Bld) [Time] 30.8 s Normal 22.3-36.2 Th [facility] Comment on above: Performed By: #### P T, PTT ####[facility] Cknwxffiwe125[address] [place], [place] [address]Dr. Donna Malone XR CHEST 1 Von 07-15-2022 XR CHEST 1 V Normal [facility] CULTURE URINEon 06-24-2022 CULTURE URINE Normal [facility] Comment on above: Performed By: #### U RCX ####[facility] Vuehtxhmgt677[address] [place], [place] [address]Dr. Donna Malone UA RANDOM W/MICROSCOPICon BACTERIA NONE SEEN Normal NONE SEEN [facility] Comment on above: Performed By: #### U AMIC ####[facility] Jpihmxztbf3664[address] [place], [place] [address]Dr. Donna Malone Bilirubin Ql (U) Negative Normal NEGATIVE [facility] Comment on above: Performed By: #### U AMIC ####[facility] Vibijokkgt350[address] [place], [place] [address]Dr. Donna Malone CAST NONE SEEN Normal NONE SEEN [facility] Comment on above: Performed By: #### U AMIC ####[facility] Nlnozirvgt0845[address] [place], [place] [address]Dr. Donna Malone Clarity (U) CLEAR Normal CLEAR [facility] Comment on above: Performed By: #### U AMIC ####[facility] Iwtvjjbcmj0664[address] [place], [place] [address]Dr. Donna Malone Color (U) DK. YELLOW Normal YELLOW [facility] Comment on above: Performed By: #### U AMIC ####[facility] Nfixxygjec510[address] [place], [place] [address]Dr. Donna Malone Crystals LM Nom (Urine sed) NONE SEEN Normal NONE SEEN [facility] Comment on above: Performed By: #### U AMIC ####[facility] Pbsvzruoiz7061 [place] [address]Dr. Donna Faisal Epithelial cells LM Ql (Urine sed) NONE SEEN Normal NONE SEEN /RARE [facility] Comment on above: Performed By: #### U AMIC ####[facility] Wlbwvbzzpm3996 [place] [address]Dr. Donna Faisla Glucose Ql (U) 100 mg/dl Abnormal NEGATIVE [facility] Comment on above: Performed By: #### U AMIC ####[facility] Ctavirdwat964[address] [place], [place] [address]Dr. Donna Malone Hemoglobin Ql (U) Negative Normal NEGATIVE [facility] Comment on above: Performed By: #### U AMIC ####[facility] Mczcvrutes6799[address] [place], [place] [address]Dr. Donna Malone Ketones Ql (U) TRACE Abnormal NEGATIVE [facility] Comment on above: Performed By: #### U AMIC ####[facility] Jsobxssjip5822[address] [place], [place] [address]Dr. Donna Malone LEUKOCYTES Negative Normal NEGATIVE [facility] Comment on above: Performed By: #### U AMIC ####[facility] Ygshbudyeq3332[address] [place], [place] [address]Dr. Rubyyvan Faisal MUCOUS SMALL Abnormal NONE SEEN [facility] Comment on above: Performed By: #### U AMIC ####[facility] Lnvargmoxb9912[address] [place], [place] [address]Dr. Donna Malone Nitrite Ql (U) Negative Normal NEGATIVE [facility] Comment on above: Performed By: #### U AMIC ####[facility] Cgrjgoefap030[address] [place], [place] [address]Dr. Donna Malone pH (U) 6.0 [pH] Normal 5-9 [facility] Comment on above: Performed By: #### U AMIC ####[facility] Lvhykstcgd1318[address] [place], [place] [address]Dr. Donna Malone RBC NONE SEEN Abnormal 0-2 [facility] Comment on above: Performed By: #### U AMIC ####[facility] Fmgxlqtytu1829 [place] [address]Dr. Donna Malone SPEC GRAVITY 1.030 Abnormal 1.005-<=1. 025 [facility] Comment on above: Performed By: #### U AMIC ####[facility] Gdlcnxyyxt3929 [place] [address]Dr. Donna Malone UA PROTEIN Negative Normal NEGATIVE/ TRACE [facility] Comment on above: Performed By: #### U AMIC ####[facility] Ihwvzmqloi1448 [place] [address]Dr. Donna Malone Urobilinogen Qn (U) 0.2 {Jermain'U}/dL Normal 0.2 - 1. 0 [facility] Comment on above: Performed By: #### U AMIC ####[facility] Gtckxhwwxo6560 [place] [address]Dr. Donna Malone WBC 2-5 Abnormal NONE SEEN [facility] Comment on above: Performed By: #### U AMIC ####[facility] Kuadahvacj8360[address] [place], [place] [address]Dr. Donna Malone COMPLIANCE DRUG SCREENon PDF . Normal [facility] Comment on above: Performed By: #### D SDOALC ####[facility] Asjkjpfkqj88[address] [place], [place] [address]Dr. Donna Malone Summary FINAL Normal [facility] Comment on above: Result Comment: =====TOXASSURE COMP [...] call . Performed By: #### D SDOALC ####[facility] Ojjfudqhzz9[address] [place], [place] [address]Dr. Donna Malone CBC AUTO DIFFon 05-16-2022 BASO # 0.0 103/ul Normal 0.0-0.1 [facility] Comment on above: Performed By: #### C BC ####[facility] Pgasgykaqx296[address] [place], [place] [address]Dr. Donna Malone Basophils/100 WBC (Bld) 0.4 % Normal 0.2-2.0 [facility] Comment on above: Performed By: #### C BC ####[facility] Vesnmixoxu438[address] [place], [place] [address]Dr. Donna Malone EO # 0.1 103/ul Normal 0.0-0.7 [facility] Comment on above: Performed By: #### C BC ####[facility] Tbmeqskjpl314[address] [place], [place] [address]Dr. Donna Malone Eosinophils/100 WBC (Bld) 0.9 % Normal 0.9-7.0 [facility] Comment on above: Performed By: #### C BC ####[facility] Dmdjhaxref175[address] [place], [place] [address]Dr. Donna Malone Erythrocyte distribution width (RBC) [Ratio] 14.9 % Normal 11.0-15.0 [facility] Comment on above: Performed By: #### C BC ####[facility] Mogsuwizer24[address] [place], [place] [address]Dr. Donna Malone Hematocrit (Bld) [Volume fraction] 41.0 % Critically low 42.0-54.0 [facility] Comment on above: Performed By: #### C BC ####[facility] Httyuxfyke1634 [place] [address]Dr. Donna Malone Hemoglobin (Bld) [Mass/Vol] 13.3 g/dL Critically low 14.0-18.0 [facility] Comment on above: Performed By: #### C BC ####[facility] Uklvggqwqp4315 [place] [address]Dr. Donna Malone IG # 0.03 10e3/ul Normal 0.00-0.03 [facility] Comment on above: Performed By: #### C BC ####[facility] Tywkankwdw5101 [place] [address]Dr. Donna Malone IG % 0.3 % Normal 0.0-0.5 [facility] Comment on above: Performed By: #### C BC ####[facility] Wqisxeiwwt3403 [place] [address]Dr. Donna Malone LYMPH # 1.4 103/ul Normal 1.2-3.8 [facility] Comment on above: Performed By: #### C BC ####[facility] Aoxmelzrfh1610 [place] [address]Dr. Donna Malone Lymphocytes/100 WBC (Bld) 15.3 % Critically low 20.5-60.0 [facility] Comment on above: Performed By: #### C BC ####[facility] [facility] [address]act[address] [place] [address]Dr. Donna Malone MANUAL DIFF REQ NO Normal [facility] Comment on above: Performed By: #### C BC ####[facility] Bfibmrwqjq9640 [place] [address]DrElizabeth Malone MCH (RBC) [Entitic mass] 29.4 pg Normal 25.9-34.0 [facility] Comment on above: Performed By: #### C BC ####[facility] Ozlcxecobi37[address] [place] [address]Dr. Donna Malone MCHC (RBC) [Mass/Vol] 32.4 g/dL Normal 29.9-35.2 [facility] Comment on above: Performed By: #### C BC ####[facility] Gkvqvwjuyc3452 [place] [address]Dr. Donna Faisal MCV (RBC) [Entitic vol] 90.5 fL Normal 80.0-94.0 [facility] Comment on above: Performed By: #### C BC ####[facility] Htjlqsmgtx056[address] [place], [place] [address]Dr. Donna Malone MONO # 0.8 103/ul Normal 0.3-0.8 [facility] Comment on above: Performed By: #### C BC ####[facility] Rxpqeogvdb8009[address] [place], [place] [address]Dr. Donna Malone Monocytes/100 WBC (Bld) 8.7 % Normal 1.7-12.0 [facility] Comment on above: Performed By: #### C BC ####[facility] Xgxeaojhqk5738[address] [place], [place] [address]Dr. Donna Malone NEUT # 6.9 103/ul Critically high 1.4-6.5 [facility] Comment on above: Performed By: #### C BC ####[facility] Jkenqxaiix905[address] [place], [place] [address]Dr. Donna Malone Neutrophils/100 WBC (Bld) 74.4 % Normal 43.0-75.0 [facility] Comment on above: Performed By: #### C BC ####[facility] Jauamxeefe5389[address] [place], [place] [address]Dr. Donna Malone Platelet mean volume (Bld) [Entitic vol] 11.9 fL Normal 9.5-13.5 [facility] Comment on above: Performed By: #### C BC ####[facility] Wyqkxpvorr5379[address] [place], [place] [address]Dr. Donna Malone PLT 174 103/ul Normal 150-450 [facility] Comment on above: Performed By: #### C BC ####[facility] Vvkdcscvmq9334 [place] [address]Dr. Donna Malone RBC 4.53 106/ul Critically low 4.70-6.10 [facility] Comment on above: Performed By: #### C BC ####[facility] Czxefgygkm1078 [place] [address]Dr. Donna Malone WBC 9.2 103/ul Normal 4.0-11.0 [facility] Comment on above: Performed By: #### C BC ####[facility] Pltxyvhwzi4585[address] [place], [place] [address]DrElizabeth Malone PROF 14(COMP METB)on 022 Albumin [Mass/Vol] 3.0 g/dL Critically low 3.4-5.0 [facility] Comment on above: Performed By: #### C MP ####[facility] Draxlszteo9935[address] [place], [place] [address]Dr. Donna Malone Albumin/Globulin [Mass ratio] 0.8 {ratio} Normal [facility] Comment on above: Performed By: #### C MP ####[facility] Uzzwrtpeyn2290[address] [place], [place] [address]Dr. Donna Malone ALP [Catalytic activity/Vol] 39 U/L Critically low 46-116 [facility] Comment on above: Performed By: #### C MP ####[facility] Fgeiodckrd722[address] [place], [place] [address]Dr. Donna Malone ALT [Catalytic activity/Vol] 16 U/L Normal 16-63 [facility] Comment on above: Performed By: #### C MP ####[facility] Cpduelycma6785[address] [place], [place] [address]DrElizabeth Malone Anion gap [Moles/Vol] 10.8 mmol/L Normal [facility] Comment on above: Performed By: #### C MP ####[facility] Qirinpkncl61967[address] [place], [place] [address]DrElizabeth Malone AST [Catalytic activity/Vol] 9 U/L Critically low 15-37 [facility] Comment on above: Performed By: #### C MP ####[facility] Qwjjydccwr784[address] [place], [place] [address]DrElizabeth Malone Bilirubin [Mass/Vol] 0.3 mg/dL Normal 0.2-1.0 [facility] Comment on above: Performed By: #### C MP ####[facility] Bnozidqyxt232271 [address] [place], [place] [address]Dr. Donna Malone Calcium [Mass/Vol] 8.8 mg/dL Normal 8.5-10.1 [facility] Comment on above: Performed By: #### C MP ####[facility] Twmzqnplwg998271 [address] [place], [place] [address]Dr. Donna Malone Chloride [Moles/Vol] 105 mmol/L Normal 98-107 [facility] Comment on above: Performed By: #### C MP ####[facility] Htiynsqtct5469[address] [place], [place] [address]Dr. Donna Malone CO2 [Moles/Vol] 26.7 mmol/L Normal 21.0-32.0 [facility] Comment on above: Performed By: #### C MP ####[facility] Tdevcmmyyr868471 [address] [place], [place] [address]Dr. Donna Malone Creatinine [Mass/Vol] 0.97 mg/dL Normal 0.70-1.30 [facility] Comment on above: Performed By: #### C MP ####[facility] Tmjzenmeyx0259[address] [place], [place] [address]Dr. Donna Malone EGFR-AF DJIBOUTIAN >60 Normal >=60 [facility] Comment on above: Performed By: #### C MP ####[facility] Mdhytdibqc1718[address] [place], [place] [address]Dr. Donna Malone EGFR-NON AF DJIBOUTIAN >60 Normal >=60 [facility] Comment on above: Performed By: #### C MP ####[facility] Monmvklsgw216[address] [place], [place] [address]Dr. Donna Malone Globulin (S) [Mass/Vol] 3.7 g/dL Normal [facility] Comment on above: Performed By: #### C MP ####[facility] Mpccpbkcal066[address] [place], [place] [address]Dr. Donna Malone Glucose [Mass/Vol] 98 mg/dL Normal 74-106 [facility] Comment on above: Performed By: #### C MP ####[facility] Nzvfeqagrp9307 [place] [address]Dr. Donna Malone Potassium [Moles/Vol] 3.5 mmol/L Normal 3.5-5.1 [facility] Comment on above: Performed By: #### C MP ####[facility] Ukzlhiohpt9396 [place] [id number]. Donna Malone Protein [Mass/Vol] 6.7 g/dL Normal 6.4-8.2 [facility] Comment on above: Performed By: #### C MP ####[facility] Ejuwbezbix196[address] [place], [place] [address]Dr. Donna Malone Sodium [Moles/Vol] 139 mmol/L Normal 136-145 [facility] Comment on above: Performed By: #### C MP ####[facility] Cbktisumpt501[address] [place], [place] [address]Dr. Donna Faisal Urea nitrogen [Mass/Vol] 11.0 mg/dL Normal 7.0-18.0 [facility] Comment on above: Performed By: #### C MP ####[facility] Qmulmyyhmu6955[address] [place], [place] [address]Dr. Donna Malone Urea nitrogen/Creatinine [Mass ratio] 11.3 mg/mg Normal [facility] Comment on above: Performed By: #### C MP ####[facility] Noggreumcf5430[address] [place], [place] [address]Dr. Donna Faisal T3, TOTAL (TRIIODOTHYRONINE) on 05-16-2022 T3, TOTAL 86 ng/dL Normal 71-180 [facility] Comment on above: Performed By: #### T 3TOTAL ####[facility] Mbsxqzmcod738[address] [place], [place] [address]Dr. Donna Faisal T4 LABCORPon 05-16-2022 T4 [Mass/Vol] 6.4 ug/dL Normal 4.5-12.0 [facility] Comment on above: Performed By: #### T 4LC ####[facility] Dwrosmzqkt155[address] [place], [place] [address]Dr. Donna Malone CBC AUTO DIFFon 05-15-2022 BASO # 0.0 103/ul Normal 0.0-0.1 [facility] Comment on above: Performed By: #### C BC ####[facility] Ybbdcmncjw5628 [place] [address]Dr. Donna Malone Basophils/100 WBC (Bld) 0.3 % Normal 0.2-2.0 [facility] Comment on above: Performed By: #### C BC ####[facility] Wykclqgyau1127 [place] [address]Dr. Donna Malone EO # 0.2 103/ul Normal 0.0-0.7 [facility] Comment on above: Performed By: #### C BC ####[facility] Ffwwkxilla8518 [place] [address]Dr. Donna Faisal Eosinophils/100 WBC (Bld) 2.0 % Normal 0.9-7.0 [facility] Comment on above: Performed By: #### C BC ####[facility] Kqnqobxycp5702 [place] [address]Dr. Donna Malone Erythrocyte distribution width (RBC) [Ratio] 14.6 % Normal 11.0-15.0 [facility] Comment on above: Performed By: #### C BC ####[facility] Yxorajwana4440 [place] [address]Dr. Donna Malone Hematocrit (Bld) [Volume fraction] 38.2 % Critically low 42.0-54.0 [facility] Comment on above: Performed By: #### C BC ####[facility] Twbukwhdzk4538 [place] [address]Dr. Donna Malone Hemoglobin (Bld) [Mass/Vol] 12.7 g/dL Critically low 14.0-18.0 [facility] Comment on above: Performed By: #### C BC ####[facility] Xjgdwivkhc3597 [place] [address]Dr. Donna Faisal IG # 0.04 10e3/ul Critically high 0.00-0.03 [facility] Comment on above: Performed By: #### C BC ####[facility] Qjkemhwevg6513 [place] [phone]. Donna Malone IG % 0.4 % Normal 0.0-0.5 [facility] Comment on above: Performed By: #### C BC ####[facility] Stwpudldcb6383 [place] [phone]. Donna Malone LYMPH # 1.4 103/ul Normal 1.2-3.8 [facility] Comment on above: Performed By: #### C BC ####[facility] Ugpvfrruno7337 [place] [phone]. Donna Malone Lymphocytes/100 WBC (Bld) 14.9 % Critically low 20.5-60.0 [facility] Comment on above: Performed By: #### C BC ####[facility] Vtjvjultvg2197 [place] [address]Dr. Donna Malone MANUAL DIFF REQ NO Normal [facility] Comment on above: Performed By: #### C BC ####[facility] Lsqtlbkoqy8944 [place] [phone]. Donna Malone MCH (RBC) [Entitic mass] 30.0 pg Normal 25.9-34.0 [facility] Comment on above: Performed By: #### C BC ####[facility] Aehtypphlf[address] [place] [phone]. Donna Malone MCHC (RBC) [Mass/Vol] 33.2 g/dL Normal 29.9-35.2 [facility] Comment on above: Performed By: #### C BC ####[facility] L[address]ijwp[address] [place], [place] [address]Dr. Donna Malone MCV (RBC) [Entitic vol] 90.3 fL Normal 80.0-94.0 [facility] Comment on above: Performed By: #### C BC ####[facility] Nelcczvges6944 [place] [address]Dr. Donna Faisal MONO # 0.8 103/ul Normal 0.3-0.8 [facility] Comment on above: Performed By: #### C BC ####[facility] Msjflqihkc8477 [place] [phone]. Donna Malone Monocytes/100 WBC (Bld) 8.5 % Normal 1.7-12.0 [facility] Comment on above: Performed By: #### C BC ####[facility] Tqxrsjewen8420 [place] [phone]. Donna Malone NEUT # 6.8 103/ul Critically high 1.4-6.5 [facility] Comment on above: Performed By: #### C BC ####[facility] Sufokoizvr9039 [place] [address]Dr. Donna Malone Neutrophils/100 WBC (Bld) 73.9 % Normal 43.0-75.0 [facility] Comment on above: Performed By: #### C BC ####[facility] Irxudetwxj1223 [place] [address]Dr. Donna Malone Platelet mean volume (Bld) [Entitic vol] 12.0 fL Normal 9.5-13.5 [facility] Comment on above: Performed By: #### C BC ####[facility] Qdlhrqmnvf8192 [place] [address]Dr. Donna Malone PLT 154 103/ul Normal 150-450 [facility] Comment on above: Performed By: #### C BC ####[facility] Yjpdecqwel4004 [place] [phone]. Donna Malone RBC 4.23 106/ul Critically low 4.70-6.10 [facility] Comment on above: Performed By: #### C BC ####[facility] Uicsmrwrpp5575 [place] [address]Dr. Donna Malone WBC 9.2 103/ul Normal 4.0-11.0 [facility] Comment on above: Performed By: #### C BC ####[facility] Lmvawfyrkx8122 [place] [address]Dr. Donna Faisal PROF 14(COMP METB)on 022 Albumin [Mass/Vol] 2.9 g/dL Critically low 3.4-5.0 [facility] Comment on above: Performed By: #### C MP ####[facility] Fdxqjdxjfm5040 [place] [phone]. Donna Malone Albumin/Globulin [Mass ratio] 0.9 {ratio} Normal [facility] Comment on above: Performed By: #### C MP ####[facility] Bqhzkmvbvm2518 [place] [address]Dr. Donna Malone ALP [Catalytic activity/Vol] 41 U/L Critically low 46-116 [facility] Comment on above: Performed By: #### C MP ####[facility] Mrtnqfpvyv7416 [place] [address]Dr. Donna Faisal ALT [Catalytic activity/Vol] 12 U/L Critically low 16-63 [facility] Comment on above: Performed By: #### C MP ####[facility] Ogqqtvyyqy778[address] [place], [place] [address]Dr. Rubyyvan Faisal Anion gap [Moles/Vol] 5.6 mmol/L Normal [facility] Comment on above: Performed By: #### C MP ####[facility] Kvirykzbzd410[address] [place], [place] [address]Dr. Donna Faisal AST [Catalytic activity/Vol] 8 U/L Critically low 15-37 [facility] Comment on above: Performed By: #### C MP ####[facility] Nfbebgumfm927[address] [place], [place] [address]Dr. Donna Faisal Bilirubin [Mass/Vol] 0.5 mg/dL Normal 0.2-1.0 [facility] Comment on above: Performed By: #### C MP ####[facility] Cfeaylilxv6583 [place] [address]Dr. Donna Faisal Calcium [Mass/Vol] 8.3 mg/dL Critically low 8.5-10.1 [facility] Comment on above: Performed By: #### C MP ####[facility] Qbeqsyroac017671 [address] [place], [place] [address]Dr. Donna Malone Chloride [Moles/Vol] 106 mmol/L Normal 98-107 [facility] Comment on above: Performed By: #### C MP ####[facility] Kycpygblzj169971 [address] [place], [place] [address]Dr. Donna Faisal CO2 [Moles/Vol] 23.1 mmol/L Normal 21.0-32.0 [facility] Comment on above: Performed By: #### C MP ####[facility] Ywzqkthhzl1137[address] [place], [place] [address]Dr. Donna Faisal Creatinine [Mass/Vol] 0.82 mg/dL Normal 0.70-1.30 [facility] Comment on above: Performed By: #### C MP ####[facility] Nwlctukfeh208271 [address] [place], [place] [address]Dr. Donna Faisal EGFR-AF DJIBOUTIAN >60 Normal >=60 [facility] Comment on above: Performed By: #### C MP ####[facility] Urqwjetomj601[address] [place], [place] [address]Dr. Donna Malone EGFR-NON AF DJIBOUTIAN >60 Normal >=60 [facility] Comment on above: Performed By: #### C MP ####[facility] Jnpwdyoxij085271 [address] [place], [place] [address]Dr. Donna Malone Globulin (S) [Mass/Vol] 3.2 g/dL Normal [facility] Comment on above: Performed By: #### C MP ####[facility] Amijnspode096171 [address] [place], [place] [address]Dr. Donna Malone Glucose [Mass/Vol] 81 mg/dL Normal 74-106 [facility] Comment on above: Performed By: #### C MP ####[facility] Mfxngxdfua906[address] [place], [place] [address]Dr. Donna Malone Potassium [Moles/Vol] 3.7 mmol/L Normal 3.5-5.1 [facility] Comment on above: Performed By: #### C MP ####[facility] Mszuinnqpe988[address] [place], [place] [address]Dr. Donna Malone Protein [Mass/Vol] 6.1 g/dL Critically low 6.4-8.2 [facility] Comment on above: Performed By: #### C MP ####[facility] Ngoeknuylm8889[address] [place], [place] [address]Dr. Donna Malone Sodium [Moles/Vol] 131 mmol/L Critically low 136-145 [facility] Comment on above: Performed By: #### C MP ####[facility] Wvsglxpoae620[address] [place], [place] [address]Dr. Donna Malone Urea nitrogen [Mass/Vol] 17.0 mg/dL Normal 7.0-18.0 [facility] Comment on above: Performed By: #### C MP ####[facility] Kprqlwbhfg007[address] [place], [place] [address]Dr. Donna Malone Urea nitrogen/Creatinine [Mass ratio] 20.7 mg/mg Normal [facility] Comment on above: Performed By: #### C MP ####[facility] Ecrgbkqusy0515[address] [place], [place] [address]Dr. Donna Malone CBC AUTO DIFFon 05-14-2022 BASO # 0.1 103/ul Normal 0.0-0.1 [facility] Comment on above: Performed By: #### C BC ####[facility] Frojfyfxbf4875[address] [place], [place] [address]Dr. Donna Malone Basophils/100 WBC (Bld) 0.8 % Normal 0.2-2.0 [facility] Comment on above: Performed By: #### C BC ####[facility] Xwfdxlreqf1525[address] [place], [place] [address]Dr. Donna Malone EO # 0.3 103/ul Normal 0.0-0.7 [facility] Comment on above: Performed By: #### C BC ####[facility] Keniuxvlnz0418[address] [place], [place] [address]Dr. Donna Malone Eosinophils/100 WBC (Bld) 4.2 % Normal 0.9-7.0 [facility] Comment on above: Performed By: #### C BC ####[facility] Chrreiprug629171 [address] [place], [place] [address]Dr. Donna Malone Erythrocyte distribution width (RBC) [Ratio] 14.7 % Normal 11.0-15.0 [facility] Comment on above: Performed By: #### C BC ####[facility] Syorjbsskw1079[address] [place], [place] [address]Dr. Donna Malone Hematocrit (Bld) [Volume fraction] 36.5 % Critically low 42.0-54.0 [facility] Comment on above: Performed By: #### C BC ####[facility] Ldgtigukiy3882 [place] [address]Dr. Donna Malone Hemoglobin (Bld) [Mass/Vol] 11.9 g/dL Critically low 14.0-18.0 [facility] Comment on above: Performed By: #### C BC ####[facility] Mxllfrhiic3267 [place] [address]Dr. Donna Malone IG # 0.01 10e3/ul Normal 0.00-0.03 [facility] Comment on above: Performed By: #### C BC ####[facility] Xabhhljarg2196 [place] [address]Dr. Donna Malone IG % 0.2 % Normal 0.0-0.5 [facility] Comment on above: Performed By: #### C BC ####[facility] Qygqixczwz2356 [place] [address]Dr. Donna Malone LYMPH # 2.1 103/ul Normal 1.2-3.8 [facility] Comment on above: Performed By: #### C BC ####[facility] Jfxaahwzck1540 [place] [address]Dr. Donna Malone Lymphocytes/100 WBC (Bld) 32.1 % Normal 20.5-60.0 [facility] Comment on above: Performed By: #### C BC ####[facility] Gdiwrmntod4300 [place] [address]Dr. Donna Malone MANUAL DIFF REQ NO Normal [facility] Comment on above: Performed By: #### C BC ####[facility] Pfrbumtctr9242 [place] [address]DrElizabeth Malone MCH (RBC) [Entitic mass] 29.7 pg Normal 25.9-34.0 [facility] Comment on above: Performed By: #### C BC ####[facility] Kaarwhqbck8976 [place] [address]Dr. Donna Malone MCHC (RBC) [Mass/Vol] 32.6 g/dL Normal 29.9-35.2 [facility] Comment on above: Performed By: #### C BC ####[facility] Shvsjyncas8388 [place] [address]Dr. Donna Faisal MCV (RBC) [Entitic vol] 91.0 fL Normal 80.0-94.0 [facility] Comment on above: Performed By: #### C BC ####[facility] Gleszymbcx922[address] [place], [place] [address]Dr. Donna Malone MONO # 0.5 103/ul Normal 0.3-0.8 [facility] Comment on above: Performed By: #### C BC ####[facility] Odlibvmpur407[address] [place], [place] [address]Dr. Donna Malone Monocytes/100 WBC (Bld) 8.1 % Normal 1.7-12.0 [facility] Comment on above: Performed By: #### C BC ####[facility] Scwdnxnban238[address] [place], [place] [address]Dr. Donna Malone NEUT # 3.5 103/ul Normal 1.4-6.5 [facility] Comment on above: Performed By: #### C BC ####[facility] Tcmhnqbdhx868[address] [place], [place] [address]Dr. Donna Malone Neutrophils/100 WBC (Bld) 54.6 % Normal 43.0-75.0 [facility] Comment on above: Performed By: #### C BC ####[facility] Ztzlkdeima004[address] [place], [place] [address]Dr. Donna Malone Platelet mean volume (Bld) [Entitic vol] 12.0 fL Normal 9.5-13.5 [facility] Comment on above: Performed By: #### C BC ####[facility] Krfundibti337[address] [place], [place] [address]Dr. Donna Malone PLT 152 103/ul Normal 150-450 [facility] Comment on above: Performed By: #### C BC ####[facility] Xtqihtkgys708[address] [place], [place] [address]Dr. Donna Malone RBC 4.01 106/ul Critically low 4.70-6.10 [facility] Comment on above: Performed By: #### C BC ####[facility] Frubmlgpkq0713 [place] [address]Dr. Donna Faisal WBC 6.4 103/ul Normal 4.0-11.0 [facility] Comment on above: Performed By: #### C BC ####[facility] Uthpcwrgti8045[address] [place], [place] [address]Dr. Rubyyvan Faisal DEPAKENE/VALPROICon 05-14-20 DEPAKENE 17.3 ug/ml Critically low 50.0-100.0 [facility] Comment on above: Performed By: #### V ALP ####[facility] Euzxerpbmx77[address] [place], [place] [address]Dr. Donna Malone POINT OF CARE GLUCOSEon Glucose [Mass/Vol] 89 mg/dL Normal 74-106 [facility] Comment on above: Performed By: #### P OCGLUC ####[facility] Oqtydcvjqc313[address] [place], [place] [address]Dr. Donna Malone PROF CHEM 8 (BAS METB)on Anion gap [Moles/Vol] 13.6 mmol/L Normal [facility] Comment on above: Performed By: #### B MP ####[facility] Qeuphhzjqf7538[address] [place], [place] [address]Dr. Donna Malone Calcium [Mass/Vol] 7.8 mg/dL Critically low 8.5-10.1 [facility] Comment on above: Performed By: #### B MP ####[facility] Xmytpnudhg8178 [place] [address]Dr. Donna Malone Chloride [Moles/Vol] 112 mmol/L Critically high 98-107 [facility] Comment on above: Performed By: #### B MP ####[facility] Oaummukvib899[address] [place], [place] [address]DrElizabeth Malone CO2 [Moles/Vol] 22.5 mmol/L Normal 21.0-32.0 [facility] Comment on above: Performed By: #### B MP ####[facility] Caiyfybnzq6019 [place] [address]Dr. Donna Malone Creatinine [Mass/Vol] 1.01 mg/dL Normal 0.70-1.30 [facility] Comment on above: Performed By: #### B MP ####[facility] Xppdyubgst8090 [place] [id number]. Donna Malone EGFR-AF DJIBOUTIAN >60 Normal >=60 [facility] Comment on above: Performed By: #### B MP ####[facility] Xdufbecxpj[address] [place], [place] [address]Dr. Donna Malone EGFR-NON AF DJIBOUTIAN >60 Normal >=60 [facility] Comment on above: Performed By: #### B MP ####[facility] Qvtmhocvlj648[address] [place], [place] [address]Dr. Donna Malone Glucose [Mass/Vol] 84 mg/dL Normal 74-106 [facility] Comment on above: Performed By: #### B MP ####[facility] Qgyampvztq865[address] [place], [place] [address]Dr. Donna Malone Potassium [Moles/Vol] 4.1 mmol/L Normal 3.5-5.1 [facility] Comment on above: Performed By: #### B MP ####[facility] Mackbtkamv[address] [place], [place] [address]Dr. Donna Faisal Sodium [Moles/Vol] 144 mmol/L Normal 136-145 [facility] Comment on above: Performed By: #### B MP ####[facility] Akfgslfneo2734[address] [place], [place] [address]Dr. Donna Malone Urea nitrogen [Mass/Vol] 21.0 mg/dL Critically high 7.0-18.0 [facility] Comment on above: Performed By: #### B MP ####[facility] Jfcrmkbsru980[address] [place], [place] [address]Dr. Donna Malone Urea nitrogen/Creatinine [Mass ratio] 20.8 mg/mg Normal [facility] Comment on above: Performed By: #### B MP ####[facility] Ubgbnkvtna23[address] [place] [address]Dr. Donna Malone TSHon 05-14-2022 TSH 1.086 uIU/mL Normal 0.358-3.74 0 [facility] Comment on above: Performed By: #### T SH ####[facility] Aezzhznbeq09[address] [place], [place] [address]Dr. Donna Malone BLOOD GASES BTYon 05-13-2022 02 MODE ROOM AIR Normal [facility] Comment on above: Performed By: #### A BG ####[facility] Ydetzivksi003[address] [place], [place] [address]Dr. Donna Malone ALLENS TEST Positive [facility] Comment on above: Performed By: #### A BG ####[facility] Wvpjtozqod74[address] [place], [place] [address]Dr. Donna Malone Base excess Calc (Bld) [Moles/Vol] -2.5000 mmol/L Critically low -2.0-2.0 [facility] Comment on above: Performed By: #### A BG ####[facility] Qksdsodylh187[address] [place], [place] [address]Dr. Donna Malone BIPAP PRESSURE Normal [facility] Comment on above: Performed By: #### A BG ####[facility] Tfoojsargx522[address] [place], [place] [address]Dr. Donna Malone CPAP Normal [facility] Comment on above: Performed By: #### A BG ####[facility] Efudlwmpbv058[address] [place], [place] [address]Dr. Donna Malone FIO2 Normal [facility] Comment on above: Performed By: #### A BG ####[facility] Uxglncwbap439[address] [place], [place] [address]Dr. Donna Malone HCO3 (Bld) [Moles/Vol] 22.4 mmol/L Normal 22.0-26.0 [facility] Comment on above: Performed By: #### A BG ####[facility] Rhpxppekjl126[address] [place], [place] [address]Dr. Donna Malone LPM Normal [facility] Comment on above: Performed By: #### A BG ####[facility] Qbnwjxrjke6681 [place] [address]Dr. Donna Malone MINUTE VOLUME Normal [facility] Comment on above: Performed By: #### A BG ####[facility] Tmxmtwzcnb450[address] [place], [place] [address]Dr. Donna Malone Oxygen (Bld) [Partial pressure] 77.6 mm[Hg] Critically low 80.0-100.0 [facility] Comment on above: Performed By: #### A BG ####[facility] Ikstijlnow9580[address] [place], [place] [address]Dr. Donna Malone Oxygen saturation in Blood 95.5 % Normal 95.0-100.0 [facility] Comment on above: Performed By: #### A BG ####[facility] Yzqjfrwubj199[address] [place], [place] [address]Dr. Donna Malone PCO2 40.8 mmHg Normal 35.0-45.0 [facility] Comment on above: Performed By: #### A BG ####[facility] Vemjvyntms65[address] [place], [place] [address]Dr. Donna Malone PEEP [facility] Comment on above: Performed By: #### A BG ####[facility] Ocpiefmgbh1550[address] [place], [place] [address]Dr. Donna Malone pH (Bld) 7.359 [pH] Normal 7.350-7.45 0 [facility] Comment on above: Performed By: #### A BG ####[facility] Jlnetlcnvc517[address] [place], [place] [address]Dr. Donna Malone PIP Normal [facility] Comment on above: Performed By: #### A BG ####[facility] Avfxntxari060[address] [place], [place] [address]Dr. Donna Malone PS Normal [facility] Comment on above: Performed By: #### A BG ####[facility] Isvtgrhfaa346[address] [place], [place] [address]Dr. Donna Malone PUNCTURE SITE RR Normal [facility] Comment on above: Performed By: #### A BG ####[facility] Cubjgicvqj08[address] [place], [place] [address]Dr. Rubyyvan Malone RATE Normal [facility] Comment on above: Performed By: #### A BG ####[facility] Exsdmphpyw2382 [place] [address]Dr. Donna Malone VENT MODE Normal [facility] Comment on above: Performed By: #### A BG ####[facility] Uxuehoxuul6716 [place] [address]Dr. Donna Malone VT Normal [facility] Comment on above: Performed By: #### A BG ####[facility] Yyebqptqqo4811 [place] [address]Dr. Donna Malone BNPon 05-13-2022 Natriuretic peptide B (Bld) [Mass/Vol] 156.0 pg/mL Normal <=900.0 [facility] Comment on above: Performed By: #### C MP, CMADM, BNP ####[facility] Tppkgxmkyu2758 [place] [address]Dr. Donna Malone CARDIAC MJ ADMITon 022 CK [Catalytic activity/Vol] 119 U/L Normal 39-308 [facility] Comment on above: Performed By: #### C MP, CMADM, BNP ####[facility] Mndzxtzvpp1205 [place] [address]Dr. Rubyyvan Faisal CK.MB [Mass/Vol] 1.27 ng/mL Normal <=3.60 [facility] Comment on above: Performed By: #### C MP, CMADM, BNP ####[facility] Wzewaugwcz7876 [place] [address]Dr. Donna Malone HSTROP 7.9 pg/mL Normal 4.0-76.1 [facility] Comment on above: Result Comment: CUT- OFF POINTS HAVE BEEN ESTABLISHED BASED ON THE FOURTH UNIVERSAL DEFINITIONS OF MYOCARDIALINFARCTION. THE UPPER REFERENCE LIMIT (URL) OF TROPONIN, DEFINED THE 99TH PERCENTILE OFcTnI DISTRIBUTION IN A REFERENCE POPULATION, HAS BEEN CONFIRMED THE DECISION THRESHOLDFOR MD DIAGNOSIS. Performed By: #### C MP, CMADM, BNP ####[facility] Khbbfmyaql1792 [place] [address]Dr. Rubyyvan Malone BINDU 111 ng/mL Critically high 16-96 [facility] Comment on above: Performed By: #### C MP, CMADM, BNP ####[facility] Pinuhnhmzo6407 [place] [address]Dr. Donna Faisal CBC AUTO DIFFon 05-13-2022 BASO # 0.1 103/ul Normal 0.0-0.1 [facility] Comment on above: Performed By: #### C BC ####[facility] Zvbntwwqty5901[address] [place], [place] [address]Dr. Rubyyvan Malone Basophils/100 WBC (Bld) 0.8 % Normal 0.2-2.0 [facility] Comment on above: Performed By: #### C BC ####[facility] Sddlkegzbi689[address] [place], [place] [address]Dr. Rubyyvan Malone EO # 0.1 103/ul Normal 0.0-0.7 [facility] Comment on above: Performed By: #### C BC ####[facility] Iwjtayihuo1424[address] [place], [place] [address]Dr. Rubyyvan Malone Eosinophils/100 WBC (Bld) 1.8 % Normal 0.9-7.0 [facility] Comment on above: Performed By: #### C BC ####[facility] Dlgleiaols27[address] [place], [place] [address]Dr. Donna Faisal Erythrocyte distribution width (RBC) [Ratio] 14.7 % Normal 11.0-15.0 [facility] Comment on above: Performed By: #### C BC ####[facility] Gesmefezuq9617[address] [place], [place] [address]Dr. Donna Malone Hematocrit (Bld) [Volume fraction] 38.2 % Critically low 42.0-54.0 [facility] Comment on above: Performed By: #### C BC ####[facility] Mbvxhynxyd0665[address] [place], [place] [address]Dr. Donna Malone Hemoglobin (Bld) [Mass/Vol] 12.7 g/dL Critically low 14.0-18.0 [facility] Comment on above: Performed By: #### C BC ####[facility] Dlzypenusd2642 [place] [address]Dr. Donna Malone IG # 0.03 10e3/ul Normal 0.00-0.03 [facility] Comment on above: Performed By: #### C BC ####[facility] Ajpmnalzgt788[address] [place], [place] [address]Dr. Donna Malone IG % 0.4 % Normal 0.0-0.5 [facility] Comment on above: Performed By: #### C BC ####[facility] Hldbsoztin320[address] [place], [place] [address]Dr. Donna Malone LYMPH # 1.6 103/ul Normal 1.2-3.8 [facility] Comment on above: Performed By: #### C BC ####[facility] Yqmhtscydr7555[address] [place], [place] [address]DrElizabeth Malone Lymphocytes/100 WBC (Bld) 22.8 % Normal 20.5-60.0 [facility] Comment on above: Performed By: #### C BC ####[facility] Ophfccnrpf6665[address] [place], [place] [address]Dr. Donna Malone MANUAL DIFF REQ NO Normal [facility] Comment on above: Performed By: #### C BC ####[facility] Jxqgdoltzg778[address] [place], [place] [address]DrElizabeth Malone MCH (RBC) [Entitic mass] 30.2 pg Normal 25.9-34.0 [facility] Comment on above: Performed By: #### C BC ####[facility] Osyszfakee8279[address] [place], [place] [address]DrElizabeth Malone MCHC (RBC) [Mass/Vol] 33.2 g/dL Normal 29.9-35.2 [facility] Comment on above: Performed By: #### C BC ####[facility] Xuqtpkgswf5034[address] [place], [place] [address]DrElizabeth Malone MCV (RBC) [Entitic vol] 91.0 fL Normal 80.0-94.0 [facility] Comment on above: Performed By: #### C BC ####[facility] Jonutgbxfr183[address] [place], [place] [address]DrElizabeth Malone MONO # 0.7 103/ul Normal 0.3-0.8 [facility] Comment on above: Performed By: #### C BC ####[facility] Ceoeweaytr4372 [place] [id number]. Donna Malone Monocytes/100 WBC (Bld) 9.1 % Normal 1.7-12.0 [facility] Comment on above: Performed By: #### C BC ####[facility] Qsdjbvniib0416 [place] [address]Dr. Donna Malone NEUT # 4.7 103/ul Normal 1.4-6.5 [facility] Comment on above: Performed By: #### C BC ####[facility] Fzxlocprlx8118 [place] [address]Dr. Donna Malone Neutrophils/100 WBC (Bld) 65.1 % Normal 43.0-75.0 [facility] Comment on above: Performed By: #### C BC ####[facility] Bntwodumro1569 [place] [address]Dr. Donna Malone Platelet mean volume (Bld) [Entitic vol] 11.8 fL Normal 9.5-13.5 [facility] Comment on above: Performed By: #### C BC ####[facility] Rgepxtpfcg5492 [place] [address]Dr. Donna Malone PLT 179 103/ul Normal 150-450 [facility] Comment on above: Performed By: #### C BC ####[facility] Nqmzsqutiu7143 [place] [id number]. Donna Malone RBC 4.20 106/ul Critically low 4.70-6.10 [facility] Comment on above: Performed By: #### C BC ####[facility] Whnhfufzjf3608 [place] [phone]. Donna Malone WBC 7.2 103/ul Normal 4.0-11.0 [facility] Comment on above: Performed By: #### C BC ####[facility] Awkztvqfpz8434 [place] [phone]. Donna Malone CT STROKE HEAD WOon 05-13-[address] STROKE HEAD WO Normal [facility] Covid-19 PCR (CVDTB)on SARS-CoV-2 (COVID-19) RNA JOSÉ MIGUEL+probe Ql (Unsp spec) Not detected Normal NOT DETECTED [facility] Comment on above: Result Comment: [...] for this test is supported by the [employer] of [employer] Service's declaration that [...] be used). Performed By: #### C VDTBH ####[facility] Ytbsyvefae28[address] [place], [place] [address]DrElizabeth Malone DEPAKENE/VALPROICon 05-13-20 22 DEPAKENE 16.9 ug/ml Critically low 50.0-100.0 [facility] Comment on above: Performed By: #### V ALP ####[facility] Gglrcsshmd377[address] [place], [place] [address]DrElizabeth Malone DRUG SCREEN RAPID (URINE)on 05-13-2022 AMP Negative Normal NEGATIVE [facility] Comment on above: Performed By: #### D RUGRPD ####[facility] Xjjrjrtxtq22[address] [place], [place] [address]DrElizabeth Malone BAR Negative Normal NEGATIVE [facility] Comment on above: Performed By: #### D RUGRPD ####[facility] Uwwguprcly6868[address] [place], [place] [address]DrElizabeth Malone BUP Negative Normal NEGATIVE [facility] Comment on above: Performed By: #### D RUGRPD ####[facility] Adjwbyarwc9387 [place] [phone]. Donna Malone BZO Positive Abnormal NEGATIVE [facility] Comment on above: Performed By: #### D RUGRPD ####[facility] Qoopfzoiul9487 [place] [phone]. Donna Malone EVONNE Positive Abnormal NEGATIVE [facility] Comment on above: Performed By: #### D RUGRPD ####[facility] Pxmqwxmxfs[address] [place], [place] [address]Dr. Dnona Malone CUT-OFFS SEE BELOW Normal [facility] Comment on above: Result Comment: [...] 300 ng/mL Performed By: #### D RUGRPD ####[facility] Nyaqsnehsh8837[address] [place], [place] [address]Dr. Donna Malone DRUG CUT HEADER DRUG CLASS TEST SYST EM CUT-OFF CONCENTRATIONS ARE FOLLOWS: Normal [facility] Comment on above: Performed By: #### D RUGRPD ####[facility] Spvhuixfdb29[address] [place], [place] [address]Dr. Donna Malone mAMP Negative Normal NEGATIVE [facility] Comment on above: Performed By: #### D RUGRPD ####[facility] Lbvwvtoujs3928[address] [place], [place] [address]Dr. Donna Malone MTD Negative Normal NEGATIVE [facility] Comment on above: Performed By: #### D RUGRPD ####[facility] Hebdiuohcc470[address] [place], [place] [address]Dr. Donna Malone OPI Positive Abnormal NEGATIVE [facility] Comment on above: Performed By: #### D RUGRPD ####[facility] Iqbmudradx9863 [place] [address]Dr. Donna Malone OXY Negative Normal NEGATIVE [facility] Comment on above: Performed By: #### D RUGRPD ####[facility] Ijtkgayhwk6191 [place] [address]Dr. Donna Malone PCP Negative Normal NEGATIVE [facility] Comment on above: Performed By: #### D RUGRPD ####[facility] Pfspnqgvnv055[address] [place], [place] [address]Dr. Donna Malone PPX Negative Normal NEGATIVE [facility] Comment on above: Performed By: #### D RUGRPD ####[facility] Avwwqekigj701[address] [place], [place] [address]Dr. Donna Malone TCA Positive Abnormal NEGATIVE [facility] Comment on above: Performed By: #### D RUGRPD ####[facility] Wsirkwkcea77[address] [place], [place] [address]Dr. Donna Malone THC Negative Normal NEGATIVE [facility] Comment on above: Performed By: #### D RUGRPD ####[facility] Xkkyoycrlt865[address] [place], [place] [address]Dr. Donna Malone ER URINE PROFILEon 2 Bilirubin Ql (U) MODERATE Abnormal NEGATIVE [facility] Comment on above: Performed By: #### E RUR ####[facility] Plqrffbxbi569[address] [place], [place] [address]Dr. Donna Malone Clarity (U) SL CLOUDY Abnormal CLEAR [facility] Comment on above: Performed By: #### E RUR ####[facility] Icunosbsus849[address] [place], [place] [address]Dr. Donna Malone Color (U) DK. YELLOW Normal YELLOW [facility] Comment on above: Performed By: #### E RUR ####[facility] Ciegtudzyd2222[address] [place], [place] [address]Dr. Donna Malone ERUAHD A micrscopic examina tion will be performed if indicated. Normal [facility] Comment on above: Performed By: #### E RUR ####[facility] Uwcamgzjyi1208 [place] [address]Dr. Donna Malone Glucose Ql (U) 250 mg/dl Abnormal NEGATIVE [facility] Comment on above: Performed By: #### E RUR ####[facility] Bmbjkzhfta7485[address] [place], [place] [address]Dr. Donna Malone Hemoglobin Ql (U) Negative Normal NEGATIVE [facility] Comment on above: Performed By: #### E RUR ####[facility] Acuegtihjx918[address] [place], [place] [address]Dr. Donna Malone Ketones Ql (U) TRACE Abnormal NEGATIVE [facility] Comment on above: Performed By: #### E RUR ####[facility] Rmypsvqenc5820[address] [place], [place] [address]Dr. Donna Malone LEUKOCYTES Negative Normal NEGATIVE [facility] Comment on above: Performed By: #### E RUR ####[facility] Ngwozumgsi98[address] [place], [place] [address]Dr. Donna Malone Nitrite Ql (U) Negative Normal NEGATIVE [facility] Comment on above: Performed By: #### E RUR ####[facility] Vegfnbtrcb3669[address] [place], [place] [address]Dr. Donna Malone pH (U) 5.5 [pH] Normal 5-9 [facility] Comment on above: Performed By: #### E RUR ####[facility] Exbjfyrpdg669[address] [place], [place] [address]Dr. Donna Malone SPEC GRAVITY >=1.030 Abnormal 1.005-<=1. 025 [facility] Comment on above: Performed By: #### E RUR ####[facility] Qddjvchooz7023[address] [place], [place] [address]Dr. Donna Malone UA PROTEIN TRACE Normal NEGATIVE/ TRACE [facility] Comment on above: Performed By: #### E RUR ####[facility] Kewpnayjnc346[address] [place], [place] [address]Dr. Rubyyvan Faisal UR MICRO IND NOT INDICATED Normal [facility] Comment on above: Performed By: #### E RUR ####[facility] Sloenrpgvv2158 [place] [address]Dr. Donna Malone Urobilinogen Qn (U) 1.0 {Jermain'U}/dL Normal 0.2 - 1. 0 [facility] Comment on above: Performed By: #### E RUR ####[facility] Jrubhcatqn0833[address] [place], [place] [address]Dr. Rubyyvan Malone ETHANOL (BLD ALC)on 05-13-20 22 ALC NOTE NOTE: 80 mg/dl is th e legal limit for a blood alcohol level Normal [facility] Comment on above: Performed By: #### E TH ####[facility] Nwjekjkldt656[address] [place], [place] [address]Dr. Rubyyvan Malone Ethanol [Mass/Vol] mg/dL Normal [facility] Comment on above: Performed By: #### E TH ####[facility] Kigmvtfxaq912[address] [place], [place] [address]Dr. Rubyyvan Malone LACTATE/LACTIC ACIDon 2021 Lactate [Moles/Vol] 1.7 mmol/L Normal 0.4-1.9 [facility] Comment on above: Performed By: #### L ACT ####[facility] Vsjioepqta58[address] [place], [place] [address]Dr. Donna Faisal POINT OF CARE GLUCOSEon Glucose [Mass/Vol] 99 mg/dL Normal 74-106 [facility] Comment on above: Performed By: #### P OCGLUC ####[facility] Vjlslebrch94[address] [place], [place] [address]Dr. Rubyyvan Malone PROF 14(COMP METB)on 022 Albumin [Mass/Vol] 3.1 g/dL Critically low 3.4-5.0 [facility] Comment on above: Performed By: #### C MP, CMADM, BNP ####[facility] Kbmqlkofsw[address] [place], [place] [address]Dr. Rubyyvan Malone Albumin/Globulin [Mass ratio] 1.0 {ratio} Normal [facility] Comment on above: Performed By: #### C MP, CMADM, BNP ####[facility] Srosgdbtps6432 [place] [address]Dr. Donna Malone ALP [Catalytic activity/Vol] 37 U/L Critically low 46-116 [facility] Comment on above: Performed By: #### C MP, CMADM, BNP ####[facility] Yqqybqajtx3019 [place] [address]Dr. Donna Malone ALT [Catalytic activity/Vol] 14 U/L Critically low 16-63 [facility] Comment on above: Performed By: #### C MP, CMADM, BNP ####[facility] Nmkcmaqclg3346 [place] [address]Dr. Donna Malone Anion gap [Moles/Vol] 12.3 mmol/L Normal [facility] Comment on above: Performed By: #### C MP, CMADM, BNP ####[facility] Wtosigfghk0961 [place] [address]Dr. Donna Malone AST [Catalytic activity/Vol] 12 U/L Critically low 15-37 [facility] Comment on above: Performed By: #### C MP, CMADM, BNP ####[facility] Fjwqmfgely7223 [place] [address]Dr. Donna Malone Bilirubin [Mass/Vol] 0.4 mg/dL Normal 0.2-1.0 [facility] Comment on above: Performed By: #### C MP, CMADM, BNP ####[facility] Vsaunexggv3426 [place] [address]Dr. Donna Malone Calcium [Mass/Vol] 7.8 mg/dL Critically low 8.5-10.1 [facility] Comment on above: Performed By: #### C MP, CMADM, BNP ####[facility] Svcvmuifqh8146 [place] [address]Dr. Donna Malone Chloride [Moles/Vol] 108 mmol/L Critically high 98-107 [facility] Comment on above: Performed By: #### C MP, CMADM, BNP ####[facility] Poberdntwr7875 [place] [address]Dr. Donna Malone CO2 [Moles/Vol] 24.8 mmol/L Normal 21.0-32.0 [facility] Comment on above: Performed By: #### C MP, CMADM, BNP ####[facility] Lmyayykynv3223 [place] [address]Dr. Donna Malone Creatinine [Mass/Vol] 1.83 mg/dL Critically high 0.70-1.30 [facility] Comment on above: Performed By: #### C MP, CMADM, BNP ####[facility] Ngahwgszak8025 [place] [address]Dr. Donna Malone EGFR-AF DJIBOUTIAN 45 mL/min/1.73m2 Critically low >=60 [facility] Comment on above: Performed By: #### C MP, CMADM, BNP ####[facility] Gxatlrsmzs0103 [place] [address]Dr. Donna Malone EGFR-NON AF DJIBOUTIAN 37 mL/min/1.73m2 Critically low >=60 [facility] Comment on above: Performed By: #### C MP, CMADM, BNP ####[facility] Tbvnghumgf3035 [place] [address]Dr. Donna Malone Globulin (S) [Mass/Vol] 3.2 g/dL Normal [facility] Comment on above: Performed By: #### C MP, CMADM, BNP ####[facility] Jyphftrqya6902 [place] [address]Dr. Donna Malone Glucose [Mass/Vol] 202 mg/dL Critically high 74-106 [facility] Comment on above: Performed By: #### C MP, CMADM, BNP ####[facility] Ltxmnnqhsp0596 [place] [address]Dr. Donna Malone Potassium [Moles/Vol] 4.1 mmol/L Normal 3.5-5.1 [facility] Comment on above: Performed By: #### C MP, CMADM, BNP ####[facility] Ormpelefvh2[address] [place] [address]Dr. Donna Malone Protein [Mass/Vol] 6.3 g/dL Critically low 6.4-8.2 [facility] Comment on above: Performed By: #### C MP, CMADM, BNP ####[facility] Yrsgskcsyl6131 [place] [address]Dr. Donna Malone Sodium [Moles/Vol] 141 mmol/L Normal 136-145 [facility] Comment on above: Performed By: #### C MP, CMADM, BNP ####[facility] Jouophyszr0102 [place] [address]Dr. Donna Malone Urea nitrogen [Mass/Vol] 32.0 mg/dL Critically high 7.0-18.0 [facility] Comment on above: Performed By: #### C MP, CMADM, BNP ####[facility] [address] [address]Dr. Donna Malone Urea nitrogen/Creatinine [Mass ratio] 17.5 mg/mg Normal [facility] Comment on above: Performed By: #### C MP, CMADM, BNP ####[facility] [address] [place], [place] [address]Dr. Donna Malone PROTIMEon 05-13-2022 INR Coag (PPP) [Relative time] 1.04 {INR} Normal [facility] Comment on above: Performed By: #### P T, PTT ####[facility] [address] [place], [place] [address]Dr. Donna Malone INR GUIDELINES SEE BELOW Normal [facility] Comment on above: Result Comment: FLORESITA RED INR: 2.0 - 3.0 CONDITIONS NOT LISTED BELOW 2.5 - 3.5 FOR PROSTHETIC HEART VALVE REPLACEMENT 2.5 - 3.5 RECURRENT THROMBOSIS Performed By: #### P T, PTT ####[facility] [address] [place], [place] [address]Dr. Donna Malone PT Coag (PPP) [Time] 11.2 s Normal 9.0-11.6 [facility] Comment on above: Performed By: #### P T, PTT ####[facility] [address] [place], [place] [address]Dr. Donna Malone PTTon 05-13-2022 aPTT Coag (Bld) [Time] 27.5 s Normal 22.3-36.2 [facility] Comment on above: Performed By: #### P T, PTT ####[facility] [address] [place], [place] [address]VmElizabeth Malone XR CHEST 1 Von 05-13-2022 XR CHEST 1 V Normal [facility] Ambulatory Visit Summaryon 0 10-03-2021 [...] physician if questions or concerns acetaminophen acetaminophen-hydrocodone ([place] 5/325 Tab) amlodipine (amLODIPine 5 mg Tab) [...] schedule Cysto Where: [facility] [address] [place] [address]- Medications What How Much When Instructions New ciprofloxacin (Cipro 500 mg Tab) 1 Tablets By Mouth Every day Take 1 tablet the day before the procedure and 1 tablet after the procedure Pickup at [facility] Unchanged acetaminophen 650 Milligram Every 4 hours Contact prescribing physician if questions or concerns Unchanged acetaminophen-hydrocodone ([place] 5/ 325 Tab) 1 Tablets By Mouth [...] physician if questions or concerns Pharmacy Information [facility]: [address] [place] [phone] (more content not included)... Normal [facility] Ambulatory Visit Summary ELEUTERIO , TAYLOR Meehan :1955 Visit Date:10/03/2021 Ambulatory Visit Instructions Your Diagnosis Benign localized prostatic hyperplasia without lower urinary tract symptoms (LUTS) Nocturia Urge incontinence Post-void dribbling Your Care Team Attending Physician - Lisandro Orourke Jr., MD Primary Care Physician - Genesis Reynolds MD This Is Your Medications List ciprofloxacin (Cipro 500 mg Tab) Contact prescribing physician if questions or concerns acetaminophen acetaminophen-hydrocodone ([place] 5/325 Tab) amlodipine (amLODIPine 5 mg Tab) [...] Urology [address] [place] [address]- Medications What How Much When Instructions New ciprofloxacin (Cipro 500 mg Tab) 1 Tablets By Mouth Every day Take 1 tablet the day before the procedure and 1 tablet after the procedure Pickup at [facility] Unchanged acetaminophen 650 Milligram Every 4 hours Contact prescribing physician if questions or concerns Unchanged acetaminophen-hydrocodone ([place] 5/ 325 Tab) 1 Tablets By Mouth [...] physician if questions or concerns Pharmacy Information [facility]: [address] [place], [place] [phone] (more content not included)... Normal [facility] Home Recordson 10-03 Custodial Records [id number] Normal [facility] Patient Educationon 10-03-19 Patient Education Urology Benign [...] Follow these instructions at home: ? Take lhxf-rbm-gyecajo and prescription medicines only as told by [...] You d (more content not included)... Normal [facility] Urology Office/Clinic Noteon 10-03-2021 Urology Office/Clinic Note Chief Complaint This is a 66 [facility]. This patient has a [...] UroLift 10/30/18. [facility] due to generalized [...] recently. Family was in the hospital at [place] where he had severe weakness. A Galindo [...] last seen in 2019. Patient was in [facility] 09/14/21 due to weakness and acute [...] dribbling) moderate, (more content not included)... Normal [facility] Comment on above: Result Comment: Elec tronically Signed By: Sharad Grossman MD, Lisandro Espinal\.br\Date and Time Signed: 10/03/21 12:37 EST\.br\Electronically Co-Signed By: Lisandra Arias\.br\Date and Time Co-Signed: 10/03/21 12:32 EST APTTon 10-13-2019 aPTT Coag (Bld) [Time] 34.9 s Normal 25.0-35.0 [facility] Comment on above: Result Comment: ALL RESULTS [...] THIS PURPOSE. Performed By: #### 5 6101, [address]35 #### [address] CREATININE BLOODon 0 Creatinine [Mass/Vol] 1.07 mg/dL Normal 0.70-1.30 [facility] Comment on above: Performed By: #### 2 5656 #### [address] Creatinine [Mass/Vol] mg/dL Normal >60 [facility] Comment on above: Performed By: #### 2 5656 #### [address] LUMBAR SPINE W CONTRASTon 10-13-2019 CT LUMBAR SPINE W CONTRAST [facility] Department of Radiology [address] [place] [id number] Patient Name: TAYLOR MCCLELLAN : 1955 Sex: M Age: Race: White Pt. Location: Patient Status: O Ordered Date: 09/11/2019 2:50:00 PM Completed Date: 10/13/2019 11:37 AM Requesting Provider: JASEN HOWARD Attending Provider: JASEN HOWARD Report Copy To: LUI BRYSON Signs & Symptoms: M51.36 Other intervertebral disc degeneration, lumbar region I10 History: [place] Need Saturday appointment call [facility] [phone] [facility] auth# [id number] 09/16/19-10/15/19 cpt code 72616 *mla Comments: Exam: CT LUMBAR SPINE W [...] achievable Electronically signed: Fredy Salmeron. Transcribed by: [email or web address], User Resident: Electronically Signed by: FREDY SALMERON @ 10/13/2019 02:08 PM Normal [facility] LUMBAR MYELOGRAMon 0 LUMBAR MYELOGRAM [facility] Department of Radiology [address] [place] [id number] Patient Name: TAYLOR MCCLELLAN : 1955 [...] risks are acceptable. Consent was obtained. Timeout: [place] protocol timeout verification performed. PROCEDURE: Estimated blood [...] reports Electronically signed: Fredy Salmeron. Transcribed by: [email or web address], User Resident: KRISTINE BALLARD Electronically Signed by: FREDY SALMERON @ 10/13/2019 06:58 PM I personally read this/these film(s) with this resident Normal [facility] Comment on above: Order Comment: , , = ========= , Ordering Provider - JASEN HOWARD MD , PROTHROMBIN TIMEon 0 INR Coag (PPP) [Relative time] 1.05 {INR} Normal 0.91-1.16 [facility] Comment on above: Result Comment: ACCC P [...] CHEST 1995;[id number]. Performed By: #### 5 6101, [id number] #### [facility] [address] [place] [address], [facility] PT Coag (PPP) [Time] 13.7 s Normal 12.3-14.8 [facility] Comment on above: Result Comment: ALL RESULTS MUST BE INTERPRETED WITH RESPECT TO BLOOD DRAWING ARTIFACT OR DILUTION ERROR OF ANTICOAGULANT AT THE TIME OF SAMPLING. Performed By: #### 5 6101, 73766 #### [facility] [address] [place] [address], [facility] Laboratory Studieson 019 HBV surface Ab Ql (S) Non reactive [facility] Work Phone: Comment on above: Non Reactive: Incons istent with immunity, less than 10 mIU/mL Reactive: Consistent with immunity, greater than 9.9 mIU/mL HBV surface Ag IA Ql Negative [facility] Work Phone: Comment on above: Performed at: - [address] [id number] Pad Extraction Tender: Arnold Cabral PhD, Phone: [phone] HCV Ab Signal/Cutoff IA RelACnc 0.1 s/co ratio [facility] Work Phone: Hepatitis C Antibody Comment See comment [facility] Work Phone: Comment on above: Non reactive HCV ant ibody screen is consistent with no HCV infection, unless recent infection is suspected or other evidence exists to indicate HCV infection. HIV 1+2 Ab IA Ql Nonreactive [facility] Work Phone: Laboratory Studieson 018 Glucose mass conc Glu2: cleaned meter [facility] Work Phone: Glucose mass conc 121 mg/dL [facility] Work Phone: Comment on above: Random Glucose Refer ence Range is dependent on time and content of last meal. Glucose of more than 200 mg/dL in a nonstressed, ambulatory subject supports the diagnosis of Diabetes Mellitus. Calcium mass conc 8.7 mg/dL 8.2-10.2 [facility] Work Phone: Chloride molar conc 102 mmol/L 95-114 [facility] Work Phone: CO2 molar conc 27.5 mmol/L 22.0-30.0 [facility] Work Phone: Creatinine mass conc 1.08 mg/dL 0.64-1.27 [facility] Work Phone: GFR/1.73 sq M predicted among blacks MDRD vol rate/area (S/P/Bld) mL/min/{1.73_m2} [facility] Work Phone: Comment on above: GFR estimated refere nce range: According to KDOQI guidelines, <60 ml/min/1.73m2 is sufficient to diagnose a patient with chronic kidney disease. GFR/1.73 sq M predicted among non-blacks MDRD vol rate/area (S/P/Bld) mL/min/{1.73_m2} [facility] Work Phone: Glucose mass conc 86 mg/dL 70-100 [facility] Work Phone: Comment on above: ADA recommended refe rence range Random Glucose Reference Range is dependent on time and content of last meal. Glucose of more than 200 mg/dL in a nonstressed, ambulatory subject supports the diagnosis of Diabetes Mellitus. Pharmacy Creatinine Clearance (Chem [phone] [facility] Work Phone: Potassium molar conc 3.5 mmol/L 3.5-5.1 [facility] Work Phone: Sodium molar conc 139 mmol/L 136-146 [facility] Work Phone: Urea nitrogen mass conc 10 mg/dL 9-23 [facility] Work Phone: Laboratory Studieson 02-11-2 018 Basophils #/vol (Bld) 0.1 10*3/uL 0.0-0.2 Fi [facility] Work Phone: Basophils/100 WBC (Bld) 1.0 % [facility] Work Phone: Eosinophils #/vol (Bld) 0.2 10*3/uL 0.0-0.45 [facility] Work Phone: Eosinophils/100 WBC (Bld) 2.8 % [facility] Work Phone: Erythrocyte distribution width Ratio (RBC) 13.9 % 12.0-14.8 [facility] Work Phone: Hematocrit Volume Fraction (Bld) 36.3 % Low 38.8-50.0 [facility] Work Phone: Hemoglobin mass conc (Bld) 12.5 g/dL Low 13.0-17.0 [facility] Work Phone: Lymphocytes #/vol (Bld) 1.6 10*3/uL 1.00-4.8 [facility] Work Phone: Lymphocytes/100 WBC (Bld) 23.7 % [facility] Work Phone: MCH Entitic mass (RBC) 28.9 pg 27.5-35.2 [facility] Work Phone: MCHC mass conc (RBC) 34.3 g/dL 32.5-35.6 [facility] Work Phone: MCV Entitic volume (RBC) 84.4 fL 83.5-101 [facility] Work Phone: Monocytes #/vol (Bld) 0.4 10*3/uL 0.0-0.8 [facility] Work Phone: Monocytes/100 WBC (Bld) 6.7 % [facility] Work Phone: Neutrophils #/vol (Bld) 4.4 10*3/uL 1.8-7.7 [facility] Work Phone: Neutrophils/100 WBC (Bld) 65.8 % [facility] Work Phone: Platelet mean volume Entitic volume (Bld) 10.3 fL High 6.6-10.1 [facility] Work Phone: Platelets #/vol (Bld) 199 10*3/uL 150-450 [facility] Work Phone: RBC #/vol (Bld) 4.31 10*6/uL 3.90-5.60 [facility] Work Phone: WBC #/vol (Bld) 6.6 10*3/uL 4.1-10.5 [facility] Work Phone: Laboratory Studieson 018 Appearance Nom (U) Slightly cloudy Abnormal F [facility] Work Phone: Bacteria Auto Ql (U) None seen [facility] Work Phone: Bilirubin Ql (U) Negative [facility] Work Phone: Color Nom (U) Yellow [facility] Work Phone: Creatinine mass conc (U) 143.4 mg/dL [facility] Work Phone: Comment on above: No reference range e stablished Epithelial cells Auto #/area (Urine sed) Rare /HPF [facility] Work Phone: Glucose Automated test strip mass conc (U) Normal mg/dL [facility] Work Phone: Hemoglobin Automated test strip Ql (U) 1+ High [facility] Work Phone: Ketones mass conc (U) 1+ High [facility] Work Phone: Leukocyte esterase Automated test strip Ql (U) Negative [facility] Work Phone: Nitrite Automated test strip Ql (U) Negative [facility] Work Phone: pH (U) 5.5 [pH] 5.0-9.0 [facility] Work Phone: pH (U) [pH] 1.001-1.03 0 [facility] Work Phone: Protein mass conc (U) Negative [facility] Work Phone: RBC Auto #/area (Urine sed) 1-2 /HPF [facility] Work Phone: Sodium molar conc (U) 144.0 mmol/L F [facility] Work Phone: Comment on above: No reference range e stablished Urate crystals LM.HPF #/area (Urine sed) 3 /[HPF] [facility] Work Phone: Urobilinogen mass conc (U) Normal mg/dL [facility] Work Phone: WBC Auto #/area (Urine sed) None seen /HPF [facility] Work Phone: Albumin mass conc 2.7 g/dL Low 3.2-5.5 [facility] Work Phone: Albumin/Globulin mass ratio 0.8 {ratio} [facility] Work Phone: ALP enzyme act/vol 39 U/L 32-92 [facility] Work Phone: ALT No additional P-5'-P enzyme act/vol 14 U/L 10-60 [facility] Work Phone: AST enzyme act/vol 25 U/L 10-42 [facility] Work Phone: Bilirubin mass conc 0.6 mg/dL 0.3-1.2 [facility] Work Phone: Globulin mass conc (S) 3.6 g/dL [facility] Work Phone: Protein mass conc 6.3 g/dL 6.1-7.9 [facility] Work Phone: Laboratory Studieson 018 T3 free mass conc 3.28 pg/mL 2.50-3.90 [facility] Work Phone: T4 free mass conc 0.95 ng/dL 0.61-1.12 [facility] Work Phone: Amphetamines Ql (U) Negative [facility] Work Phone: [phone] Barbiturates Ql (U) Negative [facility] Work Phone: Benzodiazepines Ql (U) Positive High [facility] Work Phone: Cannabinoids Screen Ql (U) Negative [facility] Work Phone: Comment on above: These are unconfirme d results and should not be used for legal purposes. Drug Cut-Off Concentration: AMPH 1000 ng/mL EWA 200 ng/mL JOHN 200 ng/mL COCM 300 ng/mL OP 300 ng/mL PCP 25 ng/mL THC 20 ng/mL Cocaine Ql (U) Negative [facility] Work Phone: Opiates Ql (U) Positive [facility] Work Phone: Phencyclidine Ql (U) Negative [facility] Work Phone: Ammonia mass conc (Unsp spec) 20 umol/L 11-35 [facility] Work Phone: Bilirubin.direct mass conc 0.2 mg/dL 0.0-0.4 [facility] Work Phone: Bilirubin.indirect mass conc 0.8 mg/dL [facility] Work Phone: Cobalamin (Vitamin B12) mass conc 365 pg/mL 180-914 [facility] Work Phone: Folate mass conc 12.4 ng/mL [facility] Work Phone: Comment on above: Folate reference ran ge: >5.9 ng/ml The WHO technical consultation on folate and vitamin b12 deficiencies has determined that folate concentrations less than 4 ng/ml are considered deficient. Magnesium molar conc (Unsp spec) 1.7 mg/dL 1.6-2.6 [facility] Work Phone: Thyrotropin Qn 0.20 uIU/mL Low 0.45-5.33 [facility] Work Phone: Comment on above: Revised TSH Assay This assay is standardized to the World Health Organization International Standard for human TSH. Please note Reference Intervals have changed. Laboratory Studieson 018 Casts LM Nom (Urine sed) N/A [facility] Work Phone: Epithelial cells.renal LM.HPF #/area (Urine sed) Rare /HPF [facility] Work Phone: Hyaline casts Auto #/vol (U) 20-49 /LPF [facility] Work Phone: Lactate molar conc (U) 0.9 mmol/L [facility] Work Phone: CK enzyme act/vol 107 U/L 22-269 [facility] Work Phone: Phosphate mass conc 5.0 mg/dL High 2.5-4.6 [facility] Work Phone: Laboratory Studieson 017 Glucose mass conc 122 mg/dL [facility] Work Phone: Comment on above: RANDOM GLUCOSE REFER ENCE RANGE IS DEPENDENT ON TIME AND CONTENT OF LAST MEAL.GLUCOSE OF MORE THAN 200MG/DL IN A NONSTRESSED,AMBULATORY SUBJECT SUPPORTS THE DIAGNOSIS OF DIABETES MELLITUS. Laboratory Studieson 017 Basophils #/vol (Bld) 0.1 10*3/uL 0.0-0.2 [facility] Work Phone: Basophils/100 WBC (Bld) 0.9 % [facility] Work Phone: Calcium mass conc 8.6 mg/dL 8.2-10.2 [facility] Work Phone: Chloride molar conc 109 mmol/L 95-114 [facility] Work Phone: CK enzyme act/vol 355 U/L High 22-269 [facility] Work Phone: CO2 molar conc 19.5 mmol/L Low 22.0-30.0 [facility] Work Phone: Creatinine mass conc 0.99 mg/dL 0.64-1.27 [facility] Work Phone: Eosinophils #/vol (Bld) 0.20 10*3/uL 0.0-0.45 [facility] Work Phone: Eosinophils/100 WBC (Bld) 3.3 % [facility] Work Phone: Erythrocyte distribution width Ratio (RBC) 13.8 % 12.0-14.8 [facility] Work Phone: Estimated GFR (Non- > 60 [facility] Work Phone: GFR/1.73 sq M.predicted MDRD (S/P/Bld) [Vol rate/Area] mL/min/{1.73_m2} [facility] Comment on above: GFR estimated refere nce range: According to KDOQI guidelines, <60 ml/min/1.73m2 is sufficient to diagnose a patient with chronic kidney disease. GFR/1.73 sq M.predicted MDRD vol rate/area mL/min/{1.73_m2} [facility] Work Phone: Comment on above: GFR estimated refere nce range: According to KDOQI guidelines, <60 ml/min/1.73m2 is sufficient to diagnose a patient with chronic kidney disease. Glucose mass conc 94 mg/dL 70-100 [facility] Work Phone: Comment on above: ADA RECOMMENDED REFE RENCE RANGE Hematocrit Volume Fraction (Bld) 41.5 % 38.8-50.0 [facility] Work Phone: Hemoglobin mass conc (Bld) 14.1 g/dL 13.0-17.0 [facility] Work Phone: Lymphocytes #/vol (Bld) 2.6 10*3/uL 1.00-4.8 [facility] Work Phone: Lymphocytes/100 WBC (Bld) 40.3 % [facility] Work Phone: MCH Entitic mass (RBC) 30.4 pg 27.5-35.2 [facility] Work Phone: MCHC mass conc (RBC) 34.1 g/dL 32.5-35.6 [facility] Work Phone: MCV Entitic volume (RBC) 89.2 fL 83.5-101 [facility] Work Phone: Monocytes #/vol (Bld) 0.4 10*3/uL 0.0-0.8 [facility] Work Phone: Monocytes/100 WBC (Bld) 6.4 % [facility] Work Phone: Neutrophils #/vol (Bld) 3.1 10*3/uL 1.8-7.7 [facility] Work Phone: Neutrophils (%) (Auto) 49.1 % [facility] Work Phone: Neutrophils/100 WBC (Bld) 49.1 % [facility] Platelet mean volume Entitic volume (Bld) 10.7 fL High 6.6-10.1 [facility] Work Phone: Platelets #/vol (Bld) 160 10*3/uL 150-450 [facility] Work Phone: Potassium molar conc 3.4 mmol/L Low 3.5-5.1 [facility] Work Phone: RBC #/vol (Bld) 4.65 10*6/uL 3.90-5.60 [facility] Work Phone: Sodium molar conc 138 mmol/L 136-146 [facility] Work Phone: Urea nitrogen mass conc 7 mg/dL Low 9-23 [facility] Work Phone: WBC #/vol (Bld) 6.4 10*3/uL 4.1-10.5 [facility] Work Phone: Laboratory Studieson 017 Platelet Aggregation (ADP) 57.8 % 0-100 [facility] Work Phone: Comment on above: NO REFERENCE RANGE I S ESTABLISHED OR APPLICABLE Platelet Inhibition ADP 42.2 % 0-100 [facility] Work Phone: Comment on above: NO REFERENCE RANGE I S ESTABLISHED OR APPLICABLE TEG Max Amplitude (Citrated) 69.9 mm 50-70 [facility] Work Phone: TEG Max Amplitude (Rapid) 29.9 0-90 [facility] Work Phone: Comment on above: TEG MERY Diaz HAS NO REFE RENCE RANGE Thrombelastograph (TEG) Net G ADP 53.0 MM 0-90 [facility] Work Phone: Comment on above: TEG MERY HUSTON HAS NO RE FERENCE RANGE Albumin mass conc 3.1 g/dL Low 3.2-5.5 [facility] Work Phone: Albumin/Globulin mass ratio 1.0 {ratio} [facility] Work Phone: ALP enzyme act/vol 44 U/L 32-92 [facility] Work Phone: ALT enzyme act/vol 18 U/L 10-60 [facility] Work Phone: AST enzyme act/vol 27 U/L 10-42 [facility] Work Phone: Bilirubin Ql (U) 0.6 mg/dL 0.3-1.2 [facility] Work Phone: Bilirubin.direct mass conc 0.1 mg/dL 0.0-0.4 [facility] Work Phone: Bilirubin.indirect mass conc (Body fld) 0.5 mg/dL [facility] Work Phone: Cholesterol in HDL mass conc 26 mg/dL Low 29-71 [facility] Work Phone: Comment on above: HDL CHOL ATP-III CLA SSIFICATION Cardiovascular Risk HDL > or equal to 60 mg/dL Low HDL < 40 mg/dL High Cholesterol mass conc 150 mg/dL 140-200 [facility] Work Phone: Comment on above: CHOL less than 200 m g/dL Low risk CHOL 201-239 mg/dL Borderline risk CHOL 240 mg/dL and greater High risk Cholesterol mass conc 30 mg/dL [facility] Work Phone: Cholesterol.total/Chol esterol in HDL mass ratio 5.8 {ratio} [facility] Work Phone: Globulin mass conc (S) 3.2 g/dL [facility] Work Phone: LDL Cholesterol, Calculated 93 mg/dL 0-100 [facility] Work Phone: Comment on above: LDL ATP III CLASSIFI CATION LDL less than 100 mg/dL Optimal LDL 100-129 mg/dL Near or above optimal LDL 130-159 mg/dL Borderline high LDL 160-189 mg/dL High LDL greater than 189 mg/dL Very high Protein mass conc 6.3 g/dL 6.1-7.9 [facility] Work Phone: Thyrotropin Qn 1.12 uIU/mL 0.45-5.33 [facility] Work Phone: Comment on above: Revised TSH Assay This assay is standardized to the World Health Organization International Standard for human TSH. Please note Reference Intervals have changed. Triglyceride mass conc 153 mg/dL High 35-149 [facility] Work Phone: Comment on above: TRIG ATP III CLASSIF ICATION TRIG less than 150 mg/dL Normal TRIG 150-199 mg/dL Borderline high TRIG 200-500 mg/dL High TRIG greater than 500 mg/dL Very high Standard traceable to the Center for Disease Conrtrol and Prevention (CDC) test method. Laboratory Studieson 017 Glucose mass conc Glu2: cleaned meter [facility] Work Phone: Ammonia mass conc (P) 19 umol/L 11-35 [facility] Work Phone: Cobalamin (Vitamin B12) mass conc 202 pg/mL 180-914 [facility] Work Phone: Folate 10.7 ng/mL [facility] Work Phone: Comment on above: FOLATE REFERENCE RAN GE: >5.9 ng/mL The WHO Technical Consultation on folate and vitamin B12 deficiencies has determined that folate concentrations less than 4 ng/mL are considered deficient. Amphetamines Ql (U) Negative [facility] Work Phone: Appearance Nom (U) Clear [facility] Work Phone: Bacteria LM.HPF #/area (Urine sed) None seen [facility] Work Phone: Benzodiazepines Ql (U) Positive [facility] Work Phone: Bilirubin Ql (U) Negative [facility] Work Phone: Cocaine Ql (U) Negative [facility] Work Phone: Color Nom (U) Yellow [facility] Work Phone: Epithelial cells.squamous LM.HPF #/area (Urine sed) 5-9 /hpf High [facility] Work Phone: Glucose mass conc (U) 250 mg/dL [facility] Work Phone: Hyaline casts LM Ql (Urine sed) 0-8 /lpf [facility] Work Phone: Ketones Ql (U) Trace High [facility] Work Phone: Leukocyte esterase Test strip Ql (U) Negative [facility] Work Phone: Nitrite Ql (U) Negative [facility] Work Phone: Opiates Ql (U) Negative [facility] Work Phone: pH (U) 5.0 [pH] 5.0-9.0 [facility] Work Phone: Phencyclidine Ql (U) Negative [facility] Work Phone: Protein Ql (U) Negative [facility] Work Phone: RBC #/vol (U) 50-100 /hpf [facility] Work Phone: Specific gravity Relative Density (U) 1.039 High 1.001-1.03 0 [facility] Work Phone: Urine Barbiturates Screen Negative [facility] Work Phone: Urine Collection Type Type [facility] Work Phone: Comment on above: CATHETERIZED Urine Drug Screen Comment See comment [facility] Work Phone: Comment on above: THESE ARE UNCONFIRME D RESULTS AND SHOULD NOT BE USED FOR LEGAL PURPOSES. DRUG CUT-OFF CONCENTRATION: AMPH 1000 ng/mL EWA 200 ng/mL JOHN 200 ng/mL COCM 300 ng/mL OP 300 ng/mL PCP 25 ng/mL THC 20 ng/mL Urine Marijuana (THC) Screen Negative [facility] Work Phone: Urine Occult Blood 3+ High [facility] Work Phone: Urine Transitional Epithelial Cells 3-4 /hpf High [facility] Work Phone: Urobilinogen Qn (U) Normal mg/dL [facility] Work Phone: WBC #/vol (U) 0-1 /hpf [facility] Work Phone: Bedside Ionized Calcium (Deepti) 1.22 mmol/L 1.12-1.32 [facility] Work Phone: Bedside Total CO2 23 mmol/L 23-29 [facility] Work Phone: Chloride molar conc 110.0 mmol/L High 98-109 [facility] Work Phone: Creatinine mass conc 1.2 mg/dL 0.6-1.3 [facility] Work Phone: Comment on above: ER/ESD PHYSICIAN IS NOTIFIED/SHOWN ALL ISTAT RESULTS. CRITICAL VALUES MAY BE CONFIRMED BY LABORATORY TESTING IF DEEMED NESCESSARY BY ER ATTENDING DOCTOR Glucose mass conc 135 mg/dL High 70-105 [facility] Work Phone: Hematocrit Volume Fraction (Bld) 48.0 % 38.0-51.0 [facility] Work Phone: Hemoglobin mass conc (Bld) 16.3 g/dL 12.0-17.0 [facility] Work Phone: Potassium molar conc 4.7 mmol/L 3.5-4.9 [facility] Work Phone: Sodium molar conc 144 mmol/L 138-146 [facility] Work Phone: Urea nitrogen mass conc 15 mg/dL 8-26 [facility] Work Phone: Amylase enzyme act/vol 39 U/L 28-100 [facility] Work Phone: CK.MB mass conc 9.5 ng/mL High 0.6-6.3 [facility] Work Phone: Creatine Kinase MB Relative Index 1.5 0.00-2.50 [facility] Work Phone: Ethyl Alcohol Level < 5 mg/dL [facility] Work Phone: Glucose mass conc 140 mg/dL High 70-100 [facility] Work Phone: Comment on above: RANDOM GLUCOSE REFER ENCE RANGE IS DEPENDENT ON TIME AND CONTENT OF LAST MEAL.GLUCOSE OF MORE THAN 200MG/DL IN A NONSTRESSED,AMBULATORY SUBJECT SUPPORTS THE DIAGNOSIS OF DIABETES MELLITUS. Lipase enzyme act/vol 22.0 U/L 22-51 [facility] Work Phone: Percent Ethyl Alcohol < 0.005 % [facility] Work Phone: Troponin I.cardiac mass conc ng/mL 0-0.02 [facility] Work Phone: Comment on above: DAMARIS MD Cut off value > or equal to 0.03 ng/mL in conjunction with clinical conditions of myocardial infarction. (www.escardio.org/guidelines) Glucose mass conc 134 mg/dL [facility] Work Phone: Hemoglobin A1c/Hemoglobin.total mass fraction (Bld) 6.3 % High 4.3-5.6 [facility] Work Phone: Comment on above: Increased risk for d iabetes: 5.7 - 6.4 Diabetes: >6.4 Glycemic control for adults with diabetes: <7.0 Vital Signs Date Time Vital Sign Value Performing Clinician Facility 11-05-2022 14:30-0500 Diastolic blood pressure 72 mm[Hg] [address] Other [facility] Other 11-05-2022 14:30-0500 SaO2% (BldA) [Mass fraction] 97 % [address] Other [facility] Other 11-05-2022 14:30-0500 Systolic blood pressure 118 mm[Hg] [address] Other [facility] Other 10-18-2022 14:00-0500 Body weight 96.[address] Other [facility] Other 10-18-2022 14:00-0500 Diastolic blood pressure 64 mm[Hg] [address] Other [facility] Other 10-18-2022 14:00-0500 SaO2% (BldA) [Mass fraction] 98 % [address] Other [facility] Other 10-18-2022 14:00-0500 Systolic blood pressure 120 mm[Hg] [address] Other [facility] Other 07-20-2022 16:00-0500 Body temperature 97.4 [degF] MD Genesis Reynolds Work Phone: [facility] 07-20-2022 16:00-0500 Diastolic blood pressure 72 mm[Hg] MD Genesis Reynolds Work Phone: [facility] 07-20-2022 16:00-0500 Heart rate 61 /min MD Genesis Reynolds Work Phone: [facility] 07-20-2022 16:00-0500 Respiratory rate 16 /min MD Genesis Reynolds Work Phone: [facility] 07-20-2022 16:00-0500 SaO2% (BldA) [Mass fraction] 98 % MD Genesis Reynolds Work Phone: [facility] 07-20-2022 16:00-0500 Systolic blood pressure 159 mm[Hg] MD Genesis Reynolds Work Phone: [facility] 07-20-2022 06:00-0500 Body weight 95.3 kg MD Genesis Reynolds Work Phone: [facility] 07-18-2022 11:22-0500 Body height 177.8 cm MD Genesis Reynolds Work Phone: [facility] 07-17-2022 22:14-0500 Body height 177.8 cm MD Genesis Reynolds Work Phone: [facility] 07-17-2022 22:14-0500 Body temperature 97.5 [degF] MD Genesis Reynolds Work Phone: [facility] 07-17-2022 22:14-0500 Body weight 95.9 kg MD Genesis Reynolds Work Phone: [facility] 07-17-2022 22:14-0500 Diastolic blood pressure 87 mm[Hg] MD Genesis Reynolds Work Phone: [facility] 07-17-2022 22:14-0500 Heart rate 74 /min MD Genesis Reynolds Work Phone: [facility] 07-17-2022 22:14-0500 Respiratory rate 16 /min MD Genesis Reynolds Work Phone: [facility] 07-17-2022 22:14-0500 SaO2% (BldA) [Mass fraction] 99 % MD Genesis Reynolds Work Phone: [facility] 07-17-2022 22:14-0500 Systolic blood pressure 180 mm[Hg] MD Genesis Reynolds Work Phone: [facility] 02-13-2018 14:12-0400 Body Temperature 98 [degF] [facility] 02-13-2018 14:12-0400 BP Diastolic 74 mm[Hg] [facility] 02-13-2018 14:12-0400 BP Systolic 113 mm[Hg] Bro Aj [facility] 02-13-2018 14:12-0400 Pulse Oximetry 95 % [facility] 02-13-2018 14:12-0400 Respiratory Rate 18 /min [facility] 02-11-2018 22:00-0400 Pulse (Heart Rate) 73 /min [facility] NE[facility]ATED: Highlighted row BMI (Body Mass Index) [facility] NEGATED: Highlighted row BMI (Body Mass Index) [facility]: Highlighted row Height Bro Aj [facility] NEGATED: Highlighted row Height Bro Sanford [facility] Encounters Encounter Date Encounter Type Care Provider Facility Start: 05-04-2024 ambulatory [facility] Start: 04-30-2024 ambulatory [facility] Start: 04-29-2024 End: 05-04-2024 Emergency department patient visit [facility] Start: 03-26-2024 End: 03-26-2024 [facility]: 02-25-2024 End: 02-25-2024 [facility] Start: 02-17-2024 End: 02-17-2024 ambulatory AB [facility] Start: 02-17-2024 End: 02-17-2024 Encounter for other preprocedural examination [facility] Start: 11-10-2023 End: 11-11-2023 ambulatory SUSAN URIOSTEGUI [facility] Start: 11-10-2023 End: 11-10-2023 Subsequent hospital visit by physician Bro Sanford MD Work Phone: [facility] Start: 04-26-2023 End: 04-27-2023 ambulatory JUDY HURT [facility] Start: 04-25-2023 End: 04-26-2023 [facility] Start: 04-19-2023 ambulatory Danilo Hayes acility:[facility] Start: 01-17-2023 End: 01-17-[address] GENESIS REYNOLDS . Facility:[facility] Start: 12-06-2022 End: 12-06-[address] [facility] Other Start: 12-06-[address] [facility] [employer] Start: 11-15-2022 End: 11-17-2022 Evaluation and management of inpatient DR GENESIS REYNOLDS . Facility:[facility] Start: 11-13-2022 End: 11-13-[address] Other [facility] Other Start: 11-13-[address] [facility] Start: 11-05-2022 End: 11-05-[address] [facility] Other Start: 11-05-2022 Office outpatient vi sit [address] [facility] Start: 11-01-2022 End: 11-01-2022 ambulatory Genesis Reynolds Facility:[facility] Start: 11-01-2022 End: 11-01-2022 ambulatory MD Genesis Reynolds Work Phone: [facility] Work Phone: Start: 11-01-2022 End: 11-01-2022 Patient encounter procedure MD Genesis Reynolds Work Phone: [facility] [place] Work Phone: Start: 10-26-2022 End: 10-27-[address] GENESIS REYNOLDS . Facility:[facility] Start: 10-25-2022 (PROC) PROCEDURE [address] [facility] Start: 10-25-2022 End: 10-26-[address] GENESIS REYNOLDS . [facility] Other Start: 10-18-2022 End: 10-18-[address] Other [facility] Other Start: 10-18-2022 Office outpatient ne w [...] of inpatient MD Genesis Reynolds Work Phone: [facility] Start: 07-17-2022 End: 07-20-2022 observation encounter MD Genesis Reynolds Work Phone: [facility] Work Phone: Start: 07-15-2022 End: 07-16-[address] GENESIS REYNOLDS . Facility:[facility] Start: 06-21-2022 End: 06-22-[address] GENESIS REYNOLDS . Facility:[facility] Start: 05-13-2022 End: 05-16-2022 Evaluation and management of inpatient DR GENESIS REYNOLDS . Facility:[facility] Start: 05-07-[address] GENESIS REYNOLDS . Facili ty:[facility] Start: 12-17-2019 Preoperative state MD Genesis Reynolds Work Phone: [facility] Start: 12-24-2018 End: 12-24-2018 Patient encounter procedure Bro [facility] Start: 02-08-2018 End: 02-13-2018 Evaluation and management of inpatient [facility] Start: 01-12-2018 End: 01-17-2018 Evaluation and management of inpatient Bro [facility] Start: 04-02-2017 End: 04-05-2017 Evaluation and management of inpatient Bro [facility] Start: 06-09-2006 End: 07-09-2006 Discharged Recurring Bro [facility] Start: 04-09-2006 End: 05-09-2006 Discharged Recurring Bro [facility] Start: 03-09-2006 End: 04-08-2006 Discharged Recurring Bro [facility] Start: 02-22-2006 End: 03-08-2006 Discharged Recurring Bro [facility] Start: 02-10-2006 End: 02-14-2006 Evaluation and management of inpatient Bro Naderer [facility] Start: 05-10-2000 End: 06-08-2000 [facility] Start: 04-09-2000 End: 05-09-2000 [facility] Start: 03-09-2000 End: 04-08-2000 [facility] Start: 02-08-2000 End: 03-08-2000 [facility] Start: 01-08-2000 End: 02-07-2000 [facility] Start: 12-09-1999 End: 02-07-2000 [facility] Start: 11-08-1999 End: 12-08-1999 [facility] Start: 10-10-1999 End: 11-07-1999 [facility] Start: 09-09-1999 End: 10-09-1999 [facility] Start: 08-09-1999 End: 10-09-1999 [facility]charged [facility] Start: 07-10-1999 End: 08-08-1999 [facility]charged [facility] Start: 06-26-1999 End: 07-09-1999 [facility]charged [facility] Start: 03-29-1998 End: 03-29-1998 Patient [facility] Start: 02-24-1987 End: 02-28-1987 Evaluation and management of inpatient Bro [facility] Start: 12-22-1986 End: 12-23-1986 [facility] Procedures Date Procedure Procedure Detail Performing Clinician Start: 11-10-2023 Urnls dip stick/tabl et reagent auto microscopy Susan Uriostegui NUCLEAR REACTOR ENGINEER - SYSTEMS ENGINEERING MANAGER Work Phone: Start: 11-01-2022 X-ray of lumbar [...] - Tdap) DTaP/Tdap/Td vaccine (2 - Tdap) [employer] Start: 04-26-2024 Lipid panel Lipids [facility] [employer] Start: 04-25-2024 GFR test (Diabetes, CKD 3-4, OR last GFR 15-59) GFR test (Diabetes, CKD 3-4, OR last GFR 15-59) [employer] Start: 08-05-2023 Annual Wellness Visi t (Medicare) Annual Wellness Visit (Medicare) [employer] Start: 05-10-2023 COVID-19 Vaccine ( season) COVID-19 Vaccine ( season) [employer] Start: 04-09-2023 Influenza vaccination Flu vaccine (# 1) [employer] Start: 07-20-2022 [facility] Start: 07-18-2022 Lipid panel [facility] Start: 07-17-2022 Hospital admission [facility] Start: 07-17-2022 Physical therapy procedure [facility] Start: 07-17-2022 Referral to flour blender helper [facility] Start: 07-17-2022 Referral to occupati onal therapist [facility] Start: 07-17-2022 [facility] Start: 07-17-2022 [facility] Start: 2021 Abdominal aortic aneurysm screening AAA screen [facility] [employer] Start: 01-24-2021 Pneumococcal 65+ yea rs Vaccine (2 - PPSV23 or PCV20) Pneumococcal 65+ years Vaccine (2 - PPSV23 or PCV20) [facility] [employer] Start: 2016 Respiratory Syncytia l Virus (RSV) or age 60 yrs+ (1 - 1-dose 60+ series) Respiratory Syncytial Virus (RSV) or age 60 yrs+ (1 - 1-dose 60+ series) [employer] Start: 2006 Screening for malign ant neoplasm of lung Low dose CT lung screening &/or counseling [facility] [employer] Start: 2006 Shingles vaccine (1 of 2) Shingles vaccine (1 of 2) [employer] Start: 2001 Screening for malign ant neoplasm of colon [employer] Start: 1974 Glaucoma screening Diabetic retinal exam [facility] [employer] Start: 1974 Hepatitis C screening Hepatitis C sc reen [facility] [employer] Start: 1974 Urine screening for protein Diabetic Alb to Cr ratio (uACR) test [facility] [employer] Start: 1968 Depression Screen Depression Screen [facility] [employer] Start: 1966 Diabetic foot examination Diabetic foot exam [facility] [employer] Start: 1966 Hemoglobin A1c measurement A1C test (Diabetic or Prediabetic) [facility] [employer] Bacteria identified in Blood by Culture Blood Culture [facility] Blood culture for bacteria, including anaerobic screen Blood Culture [facility] End: 11-10-2023 Culture, Urine [employer] Work Phone: Comment on above: Once for 1 Occurrenc es starting 11/10/2023 until 11/10/2023 Patient referral [facility] Work Phone: [facility] Payers Date Payer Category Payer Self-pay 2009 Unknown [id number] 1959 Medicare [id number] 1959 Unknown [id number] 1956 Unknown [id number] 2.16.84 0.1.843895.3.579.2.593 1956 Unknown [id number] 2.16.84 0.1.303094.3.579.2.593 1956 Unknown [id number] 2.16.84 0.1.393787.3.579.2.593 1956 Unknown [id number] 2.16.84 0.1.026391.3.579.2.593 1956 Unknown [id number] 2.16.84 0.1.453046.3.579.2.593 1956 Unknown [id number] 2.16.84 0.1.544901.3.579.2.593 1956 Unknown [id number] 2.16.84 0.1.000223.3.579.2.593 1956 Unknown [id number] 2.16.84 0.1.554299.3.579.2.593 1956 Unknown [id number] 2.16.84 0.1.224060.3.579.2.593 1956 Unknown [id number] 2.16.84 0.1.654353.3.579.2.593 1956 Unknown [id number] 2.16. 840.1.052534.3.579.2.356 1956 Unknown [id number] 2.16. 840.1.414904.3.579.2.356 1956 Unknown [id number] 2.16. 840.1.841289.3.579.2.356 1956 Unknown [id number] 2.16. 840.1.020981.3.579.2.356 1956 Unknown [id number] 2.16. 840.1.373584.3.579.2.356 1956 Unknown [id number] 2.16. 840.1.931120.3.579.2.356 1956 Unknown [id number] 2.16.8 40.1.696283.3.579.2.173 1956 Unknown [id number] 2.16.8 40.1.635585.3.579.2.1286 1956 Unknown [id number] 2.16.8 40.1.070131.3.579.2.1286 1956 Unknown [id number] 2.16.8 40.1.480355.3.579.2.1286 1956 Unknown [id number] 2.16.8 40.1.058665.3.579.2.1286 Unknown [facility] [employer] [id number] Unknown [id number] 2.16.8 40.1.149698.3.579.2.531 Unknown [id number] 2.16.8 40.1.592503.3.579.2.531 Social History Date Type Detail Facility Start: 07-17-2022 End: 07-18-2022 Tobacco smoking status ORIS Smoker (finding) [facility] Start: 1955 Sex Assigned At Male F [facility] Start: 04-25-2023 Sex Assigned At N [facility] [employer] Other Start: 12-26-2016 Tobacco smoking stat us ORIS Smokes tobacco daily [facility] [employer] History of tobacco use Cigarette Smoker B ON [employer] Start: 12-26-2016 End: 04-25-2023 Cigarettes smoked current (pack per day) - Reported 1.5 [facility] [employer] Start: 12-26-2016 Tobacco use and exposure Smokeless tobacco non-user [facility] [employer] Start: 04-25-2023 Alcohol intake 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 (finding) [facility] [employer] Start: 1955 Sex Assigned At Not on file B ON [employer] Medical Equipment Procedure Code Equipment Code Equipment Origin al Text Equipment Identifier Dates [id number] Start: 12-24-2018 End: 04-11-2019 Glucose test strips Start : 12-24-2018 End: 04-10-2019 Glucose test strips Start : 12-24-2018 End: 04-10-2019 Glucose test strips Start : 12-24-2018 End: 04-10-2019 Goals Date Patient Goal Desired Activity /State Functional Status Date Assessment Result Facility 07-20-2022 Functional status Patient at Baseline [facility] Work Phone: Mental Status Date Assessment Result Facility 07-20-2022 Cognitive function Cognitive Sta tus Patient at Baseline [facility] Work Phone: Clinical Notes 2018 to 03-26-2024 Note Date & Type Note Facility 03-26-2024 Note [facility] Cardiology Clinic Note Chief Complaint: New patient [...] Coronary artery disease, PVD (peripheral vascular disease) ([facility]), and Stroke ([facility]). Surgical History He has a past surgical [...] Coronary angiography: Left (more content not included)... [facility] 02-25-2024 Note Patient: Taylor briceño Procedure Information Date/Time: 02/25/24 1030 Procedure: Coronary angiography (Left) - andrea Location: [facility] / [facility] (Cath) Providers: Festus Castillo MD [...] consented to blood products. Additional Equipment Requests [facility] 02-17-2024 Note [facility] Cardiology Clinic Note Chief Complaint: New patient [...] catheterization. I will not be in the [place] for the next 3 to 4 weeks; [...] antiplatelet therapy, moder (more content not included)... [facility] 11-05-2022 Evaluation note Encounter Date Diagnosis Assessment [...] (ICD-10 - G89.29) Follow up after procedure. [facility] Other 02-09-2023 Evaluation note* Encounter Date Diagnosis [...] cant remember who the surgeon was in [place]. He presents with his today, both the [...] negative findings were considered in medical decision-making. [employer] Other 11-11-2022 Discharge summary Author Sang Bauer [facility] July 20, 2022 6:39pm Note Date/Time July 20, 2022 3:04pm [facility] [address] [place] [address] Discharge Summary Signed Patient: Taylor Mcclellan MR#: [id number] : 1955 Acct:[id number] Age/Sex: 66 / M Adm Date: 2 Loc: Room: [address] [place] [address]: Sang Bauer MD Copies to: [...] affect Discharge Plan Discharge Plan Patient Disposition: Group Home Facility Activity: No Activity Restriction Diet: Low-Sodium [...] tablet 75 mg PO DAILY Discontinued hydrocodone-acetaminophen [[place]] 5-325 mg tablet 1 tab PO BID PRN (Reason: Pain) Qty: 0 0RF Other Ambulatory Orders: DME Home Medical Equipment (Routine) Timeframe: [id number] Location: Determined by Patient Ordered By: Sang Bauer Follow Up: Lilia Hopper APRN [Nurse Practitioner] - 08/22/22 10:30 am Documented By: Sang Bauer MD 07/20/22 7154 Signed By: <Electronically signed by Sang Bauer MD> 07/20/22 0449 [facility] Work Phone: 1(959) 968-426011-11-2022 Progress note Author Itzel Adams [facility] July 20, 2022 8:06am Note Date/Time July 20, 2022 8:06[facility] [address] [place] [address] Cardiology Progress Note Signed Patient: Taylor Mcclellan SR MR#: [id number] : 1955 Acct:[id number] Age/Sex: 66 / M Adm Date: 2 Loc: 3T Room: [address] [place] [address] Type: ADM INOo Attending Dr: Sang Bauer [...] it is a single-vessel bypass done in [place] record is not available patient and his cannot remember which hospital he had his surgery at. He does not follow with cardiology Qualifiers: Coronary Disease-Associated Artery/Lesion type: [place] artery [place] vs. transplanted heart: oneida heart Associated angina: without angina Qualified Code(s): I25.10 - Atherosclerotic heart disease of [place] coronary artery without angina pectoris Code(s): I25.10 - Atherosclerotic heart disease of [place] coronary artery without angina pectoris Status: Acute [...] 3. Stress test negative for ischemia or MD. Patient can be discharged home cardiac chew Documented By: Itzel Adams MD 07/20/22804 Signed By: <Electronically signed by MD Itzel Adams> 07/20/22805 [facility] Work Phone: 1(565) 488-165311-10-2022 Progress note Author Sang Bauer [facility] July 19, 2022 4:57pm Note Date/Time July 19, 2022 4:57pm [facility] [address] [place] [address] Hospitalist Progress Note Signed Patient: Taylor Mcclellan MR#: [id number] : 1955 Acct:[id number] Age/Sex: 66 / M Adm Date: 2 Loc: Room: [address] [place] [address] Type: ADM INOo Attending Dr: Sang Bauer [...] Insuln.Pen SUBCUT 07/17/23 21:59 Not Given [facility] Protocol Lamotrigine 100 mg 07/18/22 12:00 [...] <Electronically signed by Sang Bauer MD> 07/19/221656 [facility] Work Phone: [phone]) 769-283111-10-2022 Progress note Author Itzel Adams [facility] July 19, 2022 8:35am Note Date/Time July 19, 2022 8:35am [facility] [address] [place] [address] Cardiology Progress Note Signed Patient: Taylor Mcclellan MR#: [id number] : 1955 Acct:[id number] Age/Sex: 66 / M Adm Date: 2 Loc: 3T Room: [address] [place] [address] Type: ADM INOo Attending Dr: Sang Bauer [...] it is a single-vessel bypass done in [place] record is not available patient and his cannot remember which hospital he had his surgery at. He does not follow with cardiology Qualifiers: Coronary Disease-Associated Artery/Lesion type: oneida artery [place] vs. transplanted heart: oneida heart Associated angina: without angina Qualified Code(s): I25.10 - Atherosclerotic heart disease of oneida coronary artery without angina pectoris Code(s): I25.10 - Atherosclerotic heart disease of oneida coronary artery without angina pectoris Status: Acute [...] <Electronically signed by MD Itzel Adams> 07/19/22834 [facility] Work Phone: [phone]) 662-105811-09-2022 Progress note Author Sang Bauer [facility] July 18, 2022 3:24pm Note Date/Time July 18, 2022 3 :24pm [facility] [address] [place] [address] Hospitalist Progress Note Signed Patient: Taylor Mcclellan MR#: [id number] : 1955 Acct:[id number] Age/Sex: 66 / M Adm Date: 2 Loc: Room: [address] [place] [address] Type: ADM INOo Attending Dr: Sang Bauer [...] Insuln.Pen SUBCUT 07/17/23 21:59 Not Given [facility] Protocol Lamotrigine 100 mg 07/18/22 12:00 [...] signed by Sang Bauer MD> 07/18/22 1524 [facility] Work Phone: [phone]) 383-348811-09-2022 History and physical note Author Sang Bauer [facility] July 18, 2022 3:22pm Note Date/Time July 17, 2022 6 :41pm [facility] [address] [place] [address] Hospitalist H&P Signed Patient: Taylor Mcclellan SR MR#: [id number] : 1955 Acct:[id number] Age/Sex: 66 / M Adm Date: 2 Loc: Room: [address] [place] [address] Type: ADM INOo Attending Dr: Sang Bauer [...] at home. Reportedly patient was taken to [facility] couple days ago when he [...] his live in a mobile home in [place]. Meds Medications and Allergies Allergies chlordiazepoxide [From [...] 07/17/22] hydrocodone 5 mg-acetaminophen 325 mg tablet ([place]) 1 tab PO BID PRN Pain #0 [...] % (Auto) 29.5 % (.) 07/17/22 15:44 Upson % (Auto) 5.4 % (.) 07/17/22 15:44 Eos % (Auto) 0.7 % (.) 07/17/22 15:44 Baso % (Auto) 1.0 % (.) 07/17/22 15:44 Neut # (Auto) 4.9 x10E3/uL (1.8-7.7) 07/17/22 15:44 Lymph # (Auto) 2.3 x10E3/uL (1.00-4.8) 07/17/22 15:44 Upson # (Auto) 0.4 x10E3/uL (0.0-0.8) 07/17/22 15:44 [...] <Electronically signed by Sang Bauer MD> 07/18/22 [facility] Work Phone: 1(298) 148-766911-09-2022 Consult note Author Itzel Adams [facility] July 18, 2022 11:46am Note Date/Time July 18, 2022 1 1:43am [facility] [address] [place] [address] Cardiology Consult Note Signed Patient: Taylor Mcclellan MR#: [id number] : 1955 Acct:[id number] Age/Sex: 66 / M Adm Date: 2 Loc: Room: [address] [place] [address] Type: ADM INOo Attending Dr: Sang Bauer MD Copies to: MD Genesis Goetz MD Mourhaf A Traboulssi, MD~ Cardiology HPI History of Present Illness Consult Date: 07/18/22 Reason for Consult: Chest pain HPI: Mr. Mcclellan is a 66 year old male with known history of coronary artery disease and prior bypass surgery done in [place]. No records available. Patient report to have [...] his live in a mobile home in [place]. Meds Medications and Allergies Allergies chlordiazepoxide [From [...] 07/17/22] hydrocodone 5 mg-acetaminophen 325 mg tablet ([place]) 1 tab PO BID PRN Pain #0 [...] x10E3/uL Lymph # (Auto) 2.3 (1.00-4.8) x10E3/uL Upson # (Auto) 0.4 (0.0-0.8) x10E3/uL Eos # [...] 3.1 L (3.2-5.5) gm/dL Intake and Output 1107/18/22 07/18/22 23:59 07:59 15:59 Intake Total 50 / 50 50 / 50 Output Total 0 / 0 Balance 50 / 50 50 / 50 Intake: IV 50 / 50 cefTRIAXone 1GM-*NS* 1 gm In 50 50 / 50 ml @ 100 mls/hr IV ONCE ONE Rx #:[id number] Oral 0 / 0 50 / 50 [...] it is a single-vessel bypass done in [place] record is not available patient and his cannot remember which hospital he had his surgery at. He does not follow with cardiology Qualifiers: Coronary Disease-Associated Artery/Lesion type: oneida artery [place] vs. transplanted heart: oneida heart Associated angina: without angina Qualified Code(s): I25.10 - Atherosclerotic heart disease of oneida coronary artery without angina pectoris Code(s): I25.10 - Atherosclerotic heart disease of oneida coronary artery without angina pectoris (3) Hx [...] signed by MD Itzel Adams> 07/18/22 1146 [facility] Work Phone: 1(881) 669-522311-08-2022 History and physical note Author Sang Bauer [facility] July 18, 2022 3:22pm Note Date/Time July 17, 2022 6 :41pm [facility] [address] [place] [address] Hospitalist H&P Signed Patient: Taylor Mcclellan SR MR#: [id number] : 1955 Acct:[id number] Age/Sex: 66 / M Adm Date: 2 Loc: Room: [address] [place] [address] Type: ADM INOo Attending Dr: Sang Bauer [...] at home. Reportedly patient was taken to [facility] couple days ago when he [...] his live in a mobile home in [place]. Meds Medications and Allergies Allergies chlordiazepoxide [From [...] 07/17/22] hydrocodone 5 mg-acetaminophen 325 mg tablet ([place]) 1 tab PO BID PRN Pain #0 [...] % (Auto) 29.5 % (.) 07/17/22 15:44 Upson % (Auto) 5.4 % (.) 07/17/22 15:44 Eos % (Auto) 0.7 % (.) 07/17/22 15:44 Baso % (Auto) 1.0 % (.) 07/17/22 15:44 Neut # (Auto) 4.9 x10E3/uL (1.8-7.7) 07/17/22 15:44 Lymph # (Auto) 2.3 x10E3/uL (1.00-4.8) 07/17/22 15:44 Upson # (Auto) 0.4 x10E3/uL (0.0-0.8) 07/17/22 15:44 [...] signed by Sang Bauer MD> 07/18/22 1522 [facility] Work Phone: 1(201) 981-986101-07-2019 Consult note Author Itzel Adams [facility] July 18, 2022 11:46am Note Date/Time July 18, 2022 1 1:43am [facility] [address] [place] [address] Cardiology Consult Note Signed Patient: Taylor Mcclellan MR#: [id number] : 1955 Acct:[id number] Age/Sex: 66 / M Adm Date: 2 Loc: Room: [address] [place] [address] Type: ADM INOo Attending Dr: Sang Bauer MD Copies to: MD Genesis Goetz MD Mourhaf A Traboulssi, MD~ Cardiology HPI History of Present Illness Consult Date: 07/18/22 Reason for Consult: Chest pain HPI: Mr. Mcclellan is a 66 year old male with known history of coronary artery disease and prior bypass surgery done in [place]. No records available. Patient report to have [...] his live in a mobile home in [place]. Meds Medications and Allergies Allergies chlordiazepoxide [From [...] 07/17/22] hydrocodone 5 mg-acetaminophen 325 mg tablet ([place]) 1 tab PO BID PRN Pain #0 [...] x10E3/uL Lymph # (Auto) 2.3 (1.00-4.8) x10E3/uL Upson # (Auto) 0.4 (0.0-0.8) x10E3/uL Eos # [...] @ 100 mls/hr IV ONCE ONE Rx #:[id number] Oral 0 / 0 50 / 50 [...] it is a single-vessel bypass done in [place] record is not available patient and his cannot remember which hospital he had his surgery at. He does not follow with cardiology Qualifiers: Coronary Disease-Associated Artery/Lesion type: oneida artery [place] vs. transplanted heart: oneida heart Associated angina: without angina Qualified Code(s): I25.10 - Atherosclerotic heart disease of oneida coronary artery without angina pectoris Code(s): I25.10 - Atherosclerotic heart disease of oneida coronary artery without angina pectoris (3) Hx [...] signed by MD Itzel Adams> 07/18/22 1146 [facility] Work Phone: Discharge summary Author Sang Bauer [facility] July 20, 2022 6:39pm Note Date/Time July 20, 2022 3:04pm [facility] [address] [place] [address] Discharge Summary Signed Patient: Taylor Mcclellan SR MR#: [id number] : 1955 Acct:[id number] Age/Sex: 66 / M Adm Date: 2 Loc: Room: [address] [place] [address]: Sang Bauer MD Copies to: [...] affect Discharge Plan Discharge Plan Patient Disposition: Group Home Facility Activity: No Activity Restriction Diet: Low-Sodium [...] tablet 75 mg PO DAILY Discontinued hydrocodone-acetaminophen [[place]] 5-325 mg tablet 1 tab PO BID PRN (Reason: Pain) Qty: 0 0RF Other Ambulatory Orders: DME Home Medical Equipment (Routine) Timeframe: [id number] Location: Determined by Patient Ordered By: Sang Bauer Follow Up: Lilia Hopper APRN [Nurse Practitioner] - 08/22/22 10:30 am Documented By: Sang Bauer MD 07/20/22 1504 Signed By: <Electronically signed by Sang Bauer MD> 07/20/22 2439 [facility] Work Phone: Evaluation note* Diagnosis Onset Date Resolution Status Chest pain acute Coronary artery disease acut e Generalized weakness acute Hx of CABG acute Diabetes mellitus chronic HTN (hypertension) chronic [facility] Work Phone: Evaluation note* Diagnosis Onset Date Resolution Status Bipolar 1 disorder, depressed, severe acute Chest pain acute Coronary artery disease acut e Generalized weakness acute Hx of CABG acute Chronic back pain chronic Diabetes mellitus chronic HTN (hypertension) chronic [facility] Work Phone: Evaluation noteNo assessment information available [facility] Work Phone: evaluation noteNo InformationNort Qloud Other History general Narrative - Reported* Type Description Date Medical History CABG Medical History BPH Medical History HTN Medical History Diabetes Medical History HLD Medical History lumbosacral spondylosis Medical History lumbar neuritis Medical History disorder of sacrum Surgical History previous back surgery Surgical History heart valve replacement Surgical History CABG Hospitalization History see above [facility] Other Hospital Discharge instructions Additional Instructions SNF TO MANAGE: PT/OT to eval and treat Monitor VS per protocol--HTN Monitor FSBS Maintain high risk fall precautions [facility]: Progress note Author Sang Bauer [facility] July 18, 2022 3:24pm Note Date/Time July 18, 2022 3 :24pm [facility] [address] [place] [address] Hospitalist Progress Note Signed Patient: Taylor Mcclellan SR MR#: [id number] : 1955 Acct:[id number] Age/Sex: 66 / M Adm Date: 2 Loc: Room: [address] [place] [address] Type: ADM INOo Attending Dr: Sang Bauer [...] AMISHA Protocol Lamotrigine 100 mg 07/18/22 12:00 07/18/22 [...] signed by Sang Bauer MD> 07/18/22 1524 [facility] Work Phone: Progress note Author Itzel Adams [facility] July 19, 2022 8:35am Note Date/Time July 19, 2022 8:35am [facility] [address] [place] [address] Cardiology Progress Note Signed Patient: Taylor Mcclellan SR MR#: [id number] : 1955 Acct:[id number] Age/Sex: 66 / M Adm Date: 2 Loc: Room: [address] [place] [address] Type: ADM INOo Attending Dr: Sang Bauer [...] it is a single-vessel bypass done in [place] record is not available patient and his cannot remember which hospital he had his surgery at. He does not follow with cardiology Qualifiers: Coronary Disease-Associated Artery/Lesion type: oneida artery [place] vs. transplanted heart: oneida heart Associated angina: without angina Qualified Code(s): I25.10 - Atherosclerotic heart disease of oneida coronary artery without angina pectoris Code(s): I25.10 - Atherosclerotic heart disease of oneida coronary artery without angina pectoris Status: Acute [...] <Electronically signed by MD Itzel Adams> 07/19/2235 [facility] Work Phone: Progress note Author Sang [facility] July 19, 2022 4:57pm Note Date/Time July 19, 2022 4:57pm [facility] [address] [place] [address] Hospitalist Progress Note Signed Patient: Taylor Mcclellan MR#: [id number] : 1955 Acct:[id number] Age/Sex: 66 / M Adm Date: 2 Loc: Room: [address] [place] [address] Type: ADM INOo Attending Dr: Sang Bauer [...] Dose Route Start Last Admin Trade Name Manid PRN Reason Stop Dose Admin Acetaminophen 650 [...] Insuln.Pen SUBCUT 07/17/23 21:59 Not Given [facility]ID[facility] Protocol Lamotrigine 100 mg 07/18/22 12:00 [...] <Electronically signed by Sang Bauer MD> 07/19/221656 [facility] Work Phone: Progress note Author Itzel Adams [facility] July 20, 2022 8:06am Note Date/Time July 20, 2022 8:06am [facility] [address] [place] [address] Cardiology Progress Note Signed Patient: Taylor Mcclellan SR MR#: [id number] : 1955 Acct:[id number] Age/Sex: 66 / M Adm Date: 2 Loc: Room: [address] [place] [address] Type: ADM INOo Attending Dr: Sang Bauer [...] it is a single-vessel bypass done in [place] record is not available patient and his cannot remember which hospital he had his surgery at. He does not follow with cardiology Qualifiers: Coronary Disease-Associated Artery/Lesion type: oneida artery [place] vs. transplanted heart: oneida heart Associated angina: without angina Qualified Code(s): I25.10 - Atherosclerotic heart disease of oneida coronary artery without angina pectoris Code(s): I25.10 - Atherosclerotic heart disease of oneida coronary artery without angina pectoris Status: Acute [...] 3. Stress test negative for ischemia or MD. Patient can be discharged home cardiac chew Documented By: Itzel Adams MD 07/20/22804 Signed By: <Electronically signed by MD Itzel Adams> 07/20/22 08 [facility] Work Phone: Summary Purpose Family History No Family History Records Found Relationship Condition Age at Onset Recorded Date/T mahi Not Specified Cardiac disease Unknown Epilepsy Unknown brother Epilepsy Unknown Advance Directives No Advanced Directives Records Found Advance Directive Response Recorded Date/ Time Advance Directives Yes January 23, 9 4:30pm Latest Code Status on File Code [...] and content) DATE CREATED AUTHOR 10/15/2019 [facility] DATE CREATED AUTHOR AUTHOR'S ORGANIZ ATION 11/29/2021 Georgi Rodríguez [facility] DATE CREATED AUTHOR AUTHOR'S ORGANIZ ATION 01/21/2023 [facility] DATE CREATED AUTHOR AUTHOR'S ORGANIZ ATION 01/23/[address] [facility] DATE CREATED AUTHOR AUTHOR'S ORGANIZ ATION 08/18/2023 [facility] DATE CREATED AUTHOR AUTHOR'S ORGANIZ ATION 11/11/2023 [facility] DATE CREATED AUTHOR AUTHOR'S ORGANIZ ATION 03/30/2024 [facility] DATE CREATED AUTHOR AUTHOR'S ORGANIZ ATION 05/06/2024 [facility] Ambulatory [facility] Care Teams (unrecognized sec tion and content) [...] MD Other Provider Active Pily Winslow [facility]- Other Provider Active Adelaide Leonardo MD [...] Active Benson Lane MD Attending Provider Active Parts Facilitator Relationship 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 [employer] [facility]. provides no warranty or guarantee of the accuracy or completeness of information in this document.
--- NOTE | 2024-05-21 17:12 | P.HP_ITS ---
HPI H&P: HPI History of Present Illness Chief complaint: FALL PATRICIO ACUTE HYPOTENSION PNEUMONIA Narrative: With a fall at his assisted living facility. Patient was placed back in his bed overnight time, did well but then this morning had another fall significant low blood pressure and increasing cough and shortness of breath so presented to the emergency room. In the emergency room found to have severe dehydration with acute renal failure and a left lower lobe pneumonia which would be considered healthcare acquired pneumonia based on his current living residence When I saw patient up in the medical surgical floor, he was doing quite a bit better than what the description in the ER was, answer questions appropriately, no focal weaknesses, cough throughout the evaluation, did remember my name, did not know where he was currently located Opioid HPI Opioid Management Most Recent Pain and Opioid Data: Last Pain Scale 6 05/04/24 13:00 Last Pain Intensity 0 04/30/24 09:44 Last ORT Total Score 0 05/21/24 16:29 Last ORT Risk Category Low Risk 05/21/24 16:29 Ur Phencyclidine Scrn Negative (NEGATIVE) 11/05/23 16:26 [facility] Medical History Weakness ?R53.1 - Weakness (ICD-10) Ambulatory dysfunction ?R26.2 - Difficulty in walking, not elsewhere classified (ICD-10) Fall ?W19.XXXA - Unspecified fall, initial encounter (ICD-10) Chronic low back pain with bilateral sciatica ?M54.41 - Lumbago with sciatica, right side (ICD-10) ?M54.42 - Lumbago with sciatica, left side (ICD-10) ?G89.29 - Other chronic pain (ICD-10) Altered mental status ?R41.82 - Altered mental status, unspecified (ICD-10) Chronic back pain ?M54.9 - Dorsalgia, unspecified (ICD-10) ?G89.29 - Other chronic pain (ICD-10) Orthostatic dizziness ?R42 - Dizziness and giddiness (ICD-10) Accidental fall ?W19.XXXA - Unspecified fall, initial encounter (ICD-10) CAD (coronary artery disease) ?I25.10 - Atherosclerotic heart disease of [place] coronary artery without angina pectoris (ICD-10) Back pain ?M54.9 - Dorsalgia, unspecified (ICD-10) 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 - Fusion of spine, lumbar region (ICD-10) High cholesterol ?E78.00 - Pure hypercholesterolemia, unspecified (ICD-10) Hypertension ?I10 - Essential (primary) hypertension (ICD-10) IDDM (insulin dependent diabetes mellitus) Restless leg syndrome ?G25.81 - Restless legs syndrome (ICD-10) Suicidal ideation ?R45.851 - Suicidal ideations (ICD-10) Sleep apnea ?G47.30 - Sleep apnea, unspecified (ICD-10) Anxiety ?F41.9 - Anxiety disorder, unspecified (ICD-10) Metabolic encephalopathy ?G93.41 - Metabolic encephalopathy (ICD-10) Depression ?F32.A - Depression, unspecified (ICD-10) Acute renal failure ?N17.9 - Acute kidney failure, unspecified (ICD-10) Altered mental status ?R41.82 - Altered mental status, unspecified (ICD-10) Surgical History S/P CABG (coronary artery bypass graft) ?Z95.1 - Presence of aortocoronary bypass graft (ICD-10) History of heart artery stent ?Z95.5 - Presence of coronary angioplasty implant and graft (ICD-10) Family History Mother Family history of myocardial infarction Social History Within the past year, how often did you have a drink containing alcohol: never Score interpretation: A score less than 4 is consistent with normal alcohol consumption. 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 Known occupational exposures/hazards: No Highest level of school completed/degree received: high school graduate Do you want help with school or training: No Are you now , , , , never or living with a partner: In a typical week, how many times do you talk on the telephone with family, friends, or neighbors: never How often do you get together with friends or relatives: never How often do you attend anabaptist or spiritism services: never Do you belong to any clubs or organizations such as anabaptist groups unions, [employer] or athletic groups, or school groups: no Total score: 1 Score interpretation: A score of less than or equal to 1 indicates the most socially isolated. Little interest or pleasure in doing things: nearly every day Feeling down, depressed, or hopeless: several days Feel stressed/tense/nervous/anxious/difficulty sleeping: very much Life stressors: recent of family or friend Life stressor details: mother and step father a year ago Due to disability, difficulty making decisions: No Do you think of yourself as: straight/heterosexual Gender Identity: male Meds Home Medications and Allergies Home Medications ?Medication ?Instructions ?Recorded ?Confirmed ?Type carvedilol 12.5 mg tablet (Coreg) 12.5 mg PO BID 03/14/23 05/21/24 History clopidogrel 75 mg tablet 75 mg PO QDAY 03/14/23 05/21/24 History celecoxib 200 mg capsule 200 mg PO DAILY #30 caps 03/15/23 05/21/24 Rx mirtazapine 45 mg tablet 45 mg PO .QHS 11/05/23 05/21/24 History candesartan 8 mg tablet 8 mg PO DAILY 04/14/24 05/21/24 History cyclobenzaprine 10 mg tablet 10 mg PO TID 04/14/24 05/21/24 History divalproex 500 mg tablet,delayed 500 mg PO Q12H 04/14/24 05/21/24 History release ezetimibe 10 mg tablet 10 mg PO DAILY 04/14/24 05/21/24 History famotidine 40 mg tablet 40 mg PO DAILY 04/14/24 05/21/24 History gabapentin 600 mg tablet 600 mg PO QID 04/14/24 05/21/24 History tamsulosin 0.4 mg capsule 0.4 mg PO DAILY 04/14/24 05/21/24 History tramadol 50 mg tablet 100 mg PO QID PRN pain 04/14/24 05/21/24 History acetaminophen 500 mg capsule 500 mg PO TID 05/03/24 05/21/24 History docusate sodium 100 mg capsule 100 mg PO .qod 05/03/24 05/21/24 History multivitamin with folic acid 1 tab PO DAILY 05/03/24 05/21/24 History aspirin 81 mg tablet,delayed 81 mg PO DAILY 05/21/24 05/21/24 History release atorvastatin 80 mg tablet 80 mg PO DAILY 05/21/24 05/21/24 History primidone 50 mg tablet 50 mg PO DAILY 05/21/24 05/21/24 History triamcinolone acetonide 0.1 % 1 applic topical BID 05/21/24 05/21/24 History topical cream Allergies Allergy/AdvReac Type Severity Reaction Status Date / Time amitriptyline Allergy Verified 11/05/23 23:51 citalopram Allergy Verified 11/05/23 23:51 fentanyl Allergy Verified 11/05/23 23:51 simvastatin [From Zocor] Allergy Verified 11/05/23 23:51 succinylcholine Allergy Verified 11/05/23 23:51 venlafaxine [From Effexor] Allergy Verified 11/05/23 23:51 Exam Constitutional Vital Signs, click to edit/add: Last Vital Signs Temp 97.8 F 05/21/24 16:31 Pulse 75 05/21/24 16:31 Resp 16 05/21/24 16:31 BP 105/64 05/21/24 16:31 Pulse Ox 94 L 05/21/24 16:31 O2 Del Method Room Air 05/21/24 16:31 O2 Flow Rate 2 05/21/24 15:57 Documenting provider has reviewed patient's vital signs: yes Common normals: apparent distress (Mild dyspnea) Chest Common normals: inspection of chest normal Respiratory Common normals: no retractions; abnormal respiratory effort Effort & inspection: able to speak in complete sentences Auscultation: rhonchi and egophony (With his baseline confusion unable to get him to do this); no wheezes Cardio Common normals: regular rate, regular rhythm and no murmurs GI Common normals: Normal to inspection, nondistended, normoactive bowel sounds present, soft to palpation and non-tender Extremity Common normals: full ROM, normal capillary refill and no clubbing, cyanosis or edema Results Labs Labs: Short CBC 05/21/24 Range/Units 12:28 WBC 16.2 H (4.0-11.0) 10^3/uL Hgb 12.3 L (14.0-18.0) g/dL Hct 37.2 L (42.0-54.0) % Plt Count 226 (150-450) 10^3/uL BMP 05/21/24 12:28 Sodium 142 Potassium 4.4 Chloride 106 Carbon Dioxide 20.6 L BUN 41.0 H Creatinine 2.23 H Glucose 191 H Calcium 8.9 Urine 05/21/24 Range/Units 13:10 Urine Color Dk. yellow (YELLOW) Urine Clarity Clear (CLEAR) Urine pH 6.0 (5.0-9.0) Ur Specific [place] >=1.030 A (1.005-1.025) Urine Protein Trace (NEG/TRACE) mg/dL Urine Glucose (UA) Negative (NEGATIVE) mg/dL Assessment and Plan Assessment and Plan (1) Acute hypotension: (2) Acute kidney injury: (3) Pneumonia: Plan Admission findings: Patient status post fall secondary to weakness, findings on admission include hypoxia with O2 sat of 84%, severe hypotension with blood pressure 68/46, altered mental status, respiratory distress, leukocytosis, acute renal failure, lactic acidosis secondary to healthcare acquired left lower lobe pneumonia resulting in severe sepsis. Patient follows sepsis protocol in the emergency room given 3 L of IV fluids there Healthcare acquired left lower lobe pneumonia resulting in severe oiuanr-ewsnv-evpkjhad antibiotics to include Zosyn and linezolid, held off on vancomycin due to the acute renal failure, try to obtain sputum culture but with his dementia that will be difficult. Blood cultures pending. Serial labs. Aerosol treatments. Acute renal failure-baseline creatinine known to be 0.93, admission creatinine of 2.23, it is 239% above baseline. IV fluid resuscitation. With suspect will be improved in AM. 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 Coronary artery disease secondary to hypercholesterolemia-continue with home medications Admission status: Patient with healthcare acquired pneumonia resulting in severe sepsis with significant hypotension and hypoxia and altered mental status. Medically necessary treatment will span 2 midnights. Inpatient status. Urinary Catheter Management Urinary Catheter Management Urethral: Cath placed during this visit: yes Urethral indwelling: Yes Reason for continuing: measure accurate output Insertion date: 05/21/24 Insertion time: 13:00
[2024-05-21] MEDS: LACTATED RINGER'S SOLUTION 1,000 ML 100 ML IV (18:14)
[2024-05-21] MEDS: LINEZOLID IN DEXTROSE 5% 600 MG/300 ML PIGGYBACK 300 MG IV (18:14)
[2024-05-21] MEDS: GABAPENTIN 300 MG CAPSULE 600 MG PO ×2 (18:14→21:23)
[2024-05-21] MEDS: DIVALPROEX SODIUM 500 MG TABLET.DR PO (21:23)
[2024-05-21] MEDS: ENSURE HP 237 ML LIQUID PO (21:23)
[2024-05-21] MEDS: IPRATROPIUM/ALBUTEROL SULFATE 3 ML AMPUL.NEB IH (22:10)
[2024-05-22] VITALS (22 sets, daily range): BP systolic 107–135; BP diastolic 58–73; PULSE 48–85; TEMP 36.5–37.1; O2SAT 90–97
--- NOTE | 2024-05-22 00:42 | PC.NURSE ---
Patient found with gown off. Telemetry box off and patient pulled out iv to left forearm. Telemetry reapplied to patient. Iv fluids restarted to right arm. Right arm wrapped with kerlix at this time.
[2024-05-22] MEDS: IPRATROPIUM/ALBUTEROL SULFATE 3 ML AMPUL.NEB IH ×4 (04:44→23:27)
[2024-05-22] MEDS: GABAPENTIN 300 MG CAPSULE 600 MG PO ×4 (05:13→22:17)
[2024-05-22] MEDS: LINEZOLID IN DEXTROSE 5% 600 MG/300 ML PIGGYBACK 200 MG IV (05:13)
[2024-05-22] MEDS: LACTATED RINGER'S SOLUTION 1,000 ML 100 ML IV (05:13)
[2024-05-22 06:24] LABS: Basophils Percent Auto 0.3 % (0.2-2.0); Eosinophils Absolute Auto 0.2 10^3/uL (0.0-0.7); Eosinophils Percent Auto 1.8 % (0.9-7.0); Hematocrit 33.5 % (42.0-54.0); Hemoglobin 10.8 g/dL (14.0-18.0); Immature Granulocytes Abs Auto 0.03 10^3/uL (0.00-0.03); Immature Granulocytes Pct Auto 0.3 % (0.0-0.5); Lymphocytes Absolute Auto 1.5 10^3/uL (1.2-3.8); Lymphocytes Percent Auto 14.7 % (20.5-60.0); Mean Corpuscular HGB Conc 32.2 g/dL (29.9-35.2); Mean Corpuscular Hemoglobin 31.1 pg (25.9-34.0); Mean Corpuscular Volume 96.5 fL (80.0-94.0); Mean Platelet Volume 12.4 fL (9.5-13.5); Monocytes Absolute Auto 0.7 10^3/uL (0.3-0.8); Monocytes Percent Auto 6.7 % (1.7-12.0); Neutrophils Absolute Auto 7.9 10^3/uL (1.4-6.5); Neutrophils Percent Auto 76.2 % (43.0-75.0); Platelet Count 174 10^3/uL (150-450); Red Blood Count 3.47 10^6/uL (4.70-6.10); White Blood Count 10.3 10^3/uL (4.0-11.0)
[2024-05-22 06:34] LABS: Anion Gap 14.6; BUN Creatinine Ratio 27.4; Calcium 8.5 mg/dL (8.5-10.1); Carbon Dioxide 25.6 mmol/L (21.0-32.0); Chloride 109 mmol/L (98-107); Estimated GFR (African America >60 (>=60); Estimated GFR (Non-African Ame 53 (>=60); Glucose 116 mg/dL (74-106); Potassium 4.2 mmol/L (3.5-5.1); Sodium 145 mmol/L (136-145)
--- NOTE | 2024-05-22 07:38 | P.PN_ITS ---
Progress Note: Subjective Subjective Interval history: Patient awakens easily, answers questions appropriately, does know where he is at currently, and does remember my name. Exam Constitutional Vital Signs, click to edit/add: Last Vital Signs Temp 98.8 F 05/22/24 05:25 Pulse 83 05/22/24 06:00 Resp 18 05/22/24 05:25 BP 122/66 05/22/24 05:25 Pulse Ox 92 L 05/22/24 05:25 O2 Del Method Nasal Cannula 05/22/24 05:25 O2 Flow Rate 3 05/22/24 05:25 Documenting provider has reviewed patient's vital signs: yes Common normals: apparent distress (Mild dyspnea) Chest Common normals: inspection of chest normal Respiratory Common normals: normal respiratory effort and no retractions Effort & inspection: able to speak in complete sentences Auscultation: rhonchi (better air exchange today); no wheezes and no egophony (With his baseline confusion unable to get him to do this) Cardio Common normals: regular rate, regular rhythm and no murmurs GI Common normals: Normal to inspection, nondistended, normoactive bowel sounds present, soft to palpation and non-tender Extremity Common normals: full ROM, normal capillary refill and no clubbing, cyanosis or edema Progress Note: Objective Labs Labs: Short CBC 05/21/24 05/22/24 Range/Units 12:28 05:48 WBC 16.2 H 10.3 (4.0-11.0) 10^3/uL Hgb 12.3 L 10.8 L (14.0-18.0) g/dL Hct 37.2 L 33.5 L (42.0-54.0) % Plt Count 226 174 (150-450) 10^3/uL BMP 05/21/24 05/22/24 12:28 05:48 Sodium 142 145 Potassium 4.4 4.2 Chloride 106 109 H Carbon Dioxide 20.6 L 25.6 BUN 41.0 H 37.0 H Creatinine 2.23 H 1.35 H Glucose 191 H 116 H Calcium 8.9 8.5 Urine 05/21/24 Range/Units 13:10 Urine Color Dk. yellow (YELLOW) Urine Clarity Clear (CLEAR) Urine pH 6.0 (5.0-9.0) Ur Specific [place] >=1.030 A (1.005-1.025) Urine Protein Trace (NEG/TRACE) mg/dL Urine Glucose (UA) Negative (NEGATIVE) mg/dL Progress Note: A&P Assessment and Plan (1) Acute hypotension: (2) Acute kidney injury: (3) Pneumonia: Plan Admission findings: Patient status post fall secondary to weakness, findings on admission include hypoxia with O2 sat of 84%, severe hypotension with blood pressure 68/46, altered mental status, respiratory distress, leukocytosis, acute renal failure, lactic acidosis secondary to healthcare acquired left lower lobe pneumonia resulting in severe sepsis. Patient follows sepsis protocol in the emergency room given 3 L of IV fluids there Healthcare acquired left lower lobe pneumonia resulting in severe pfgryd-ptmjd-pylpdhti antibiotics to include Zosyn and linezolid, held off on vancomycin due to the acute renal failure on admission, O2 desaturation last night, had to bump him up from 2 L to currently on 3 L of nasal cannula oxygen, maintain current antibiotics his white blood cell count is improving Acute renal failure-baseline creatinine known to be 0.93, admission creatinine of 2.23, it is 239% above baseline on admission. IV fluid resuscitation. 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 Coronary artery disease secondary to hypercholesterolemia-continue with home medications Admission status: Patient with healthcare acquired pneumonia resulting in severe sepsis with significant hypotension and hypoxia and altered mental status. Medically necessary treatment will span 2 midnights. Inpatient status. Urinary Catheter Management Urinary Catheter Management Urethral: Cath placed during this visit: yes Urethral indwelling: Yes Reason for continuing: measure accurate output Insertion date: 05/21/24 Insertion time: 13:00
[2024-05-22] MEDS: TRIAMCINOLONE ACETONIDE 0.1% CREAM 15 GM TUBE 1 APPLIC TOPICAL ×2 (09:45→22:17)
[2024-05-22] MEDS: DOCUSATE SODIUM 100 MG CAPSULE PO (09:45)
[2024-05-22] MEDS: ATORVASTATIN CALCIUM 40 MG TABLET 80 MG PO (09:45)
--- NOTE | 2024-05-22 09:47 | SWNOTE1 ---
Pt is from [facility] [place]. It is recommended pt go to rehab for a short term SNF stay. Pt is having moments of confusion, but SW will speak to him today about this. SW called pt's guardian, Eliu. Eliu is in agreement with this plan and is aware that for Medicare to pay, pt will need a 3 day qualifying inpt stay. ISABELLA informed Eliu that as long as pt medically needs to be inpt for 3 midnights then the earliest he could go would be Saturday. Eliu voiced understanding. SW explained if he improves and does not need to be inpt and can be discharged then Medicare will not pay. Eliu would like pt to go to [facility] since he is at [place] at [facility]. SW to send referral. Important Message from Medicare reviewed and discussed with patient's guardian. Pt's guardian Eliu verbalized understanding and gave permission to SW to sign form that it was reviewed. Original placed in pt's room and copy placed in patient?s chart.
--- NOTE | 2024-05-22 09:54 | SWNOTE1 ---
Referral sent to [facility]. Referral included face sheet, ED note, H&P, provider notes, case management report, nursing notes, diagnostic imaging, med list, and PT/OT notes.
[2024-05-22] MEDS: PIPERACILLIN SODIUM/TAZOBACTAM 3.375 GM in 0.9 % SODIUM CHLORIDE 50 ML IV ×2 (09:56→16:20)
[2024-05-22] MEDS: FAMOTIDINE 20 MG TABLET 40 MG PO (09:57)
[2024-05-22] MEDS: EZETIMIBE 10 MG TABLET PO (09:57)
[2024-05-22] MEDS: TAMSULOSIN HCL 0.4 MG CAPSULE PO (09:57)
[2024-05-22] MEDS: CLOPIDOGREL BISULFATE 75 MG TABLET PO (09:57)
[2024-05-22] MEDS: PRIMIDONE 50 MG TABLET PO (09:57)
[2024-05-22] MEDS: MULTIVITAMIN TABLET 1 TAB PO (09:57)
[2024-05-22] MEDS: ASPIRIN 81 MG TABLET.DR PO (09:57)
[2024-05-22] MEDS: DIVALPROEX SODIUM 500 MG TABLET.DR PO ×2 (09:57→22:17)
[2024-05-22] MEDS: ENSURE HP 237 ML LIQUID PO ×2 (10:14→22:17)
--- NOTE | 2024-05-22 10:54 | SWNOTE1 ---
[facility] is able to accept when pt is medically stable for discharge. SW updated nursing and doctor.
--- NOTE | 2024-05-22 12:35 | PC.NURSE ---
dark tea colored cloudy urine with mucus
[2024-05-22] MEDS: LINEZOLID IN DEXTROSE 5% 600 MG/300 ML PIGGYBACK 300 MG IV (17:14)
[2024-05-22] MEDS: LACTATED RINGER'S SOLUTION 1,000 ML 50 ML IV (17:15)
[2024-05-22 18:10] LABS: Internal Control Within Normal Limits; SARS-CoV-2 Ag NEGATIVE (NEGATIVE)
[2024-05-23] VITALS (16 sets, daily range): BP systolic 123–170; BP diastolic 67–80; PULSE 69–89; TEMP 35.8–37.4; O2SAT 90–97
[2024-05-23] MEDS: PIPERACILLIN SODIUM/TAZOBACTAM 3.375 GM in 0.9 % SODIUM CHLORIDE 50 ML IV ×4 (00:47→23:48)
[2024-05-23] MEDS: IPRATROPIUM/ALBUTEROL SULFATE 3 ML AMPUL.NEB IH ×4 (04:25→22:19)
[2024-05-23] MEDS: GABAPENTIN 300 MG CAPSULE 600 MG PO ×3 (05:50→21:51)
[2024-05-23] MEDS: LINEZOLID IN DEXTROSE 5% 600 MG/300 ML PIGGYBACK 300 MG IV ×2 (05:50→18:08)
[2024-05-23 06:21] LABS: Basophils Percent Auto 0.2 % (0.2-2.0); Eosinophils Absolute Auto 0.2 10^3/uL (0.0-0.7); Eosinophils Percent Auto 2.5 % (0.9-7.0); Immature Granulocytes Abs Auto 0.06 10^3/uL (0.00-0.03); Immature Granulocytes Pct Auto 0.7 % (0.0-0.5); Lymphocytes Absolute Auto 1.8 10^3/uL (1.2-3.8); Lymphocytes Percent Auto 20.9 % (20.5-60.0); Mean Corpuscular HGB Conc 33.3 g/dL (29.9-35.2); Mean Corpuscular Volume 92.9 fL (80.0-94.0); Monocytes Absolute Auto 0.6 10^3/uL (0.3-0.8); Monocytes Percent Auto 7.1 % (1.7-12.0); Neutrophils Percent Auto 68.6 % (43.0-75.0); Platelet Count 171 10^3/uL (150-450); Red Blood Count 3.23 10^6/uL (4.70-6.10); Red Cell Distribution Width 13.6 % (11.0-15.0); White Blood Count 8.7 10^3/uL (4.0-11.0)
[2024-05-23 06:32] LABS: Anion Gap 16.5; BUN Creatinine Ratio 18.5; Calcium 8.4 mg/dL (8.5-10.1); Carbon Dioxide 24.2 mmol/L (21.0-32.0); Chloride 107 mmol/L (98-107); Estimated GFR (African America >60 (>=60); Estimated GFR (Non-African Ame >60 (>=60); Glucose 94 mg/dL (74-106); Potassium 3.7 mmol/L (3.5-5.1); Sodium 144 mmol/L (136-145)
--- NOTE | 2024-05-23 08:09 | PM.PN ---
Progress Note: Subjective Subjective Interval history: Patient resting comfortably in bed. Denies any current issues or concerns. Says he is feeling better. Exam Narrative Exam Narrative: General: Patient is alert, and oriented to person, place and time with normal affect, proper hygiene Skin: no visible rashes, or ulcers Head: atraumatic, acephalic Heart: Normal rate and rhythm, no murmurs/rubs/gallops Lungs: audible wheezes, and crackles and diminished breath sounds all lung marshall Abdomen: Normal audible bowel sounds, no distension, No palpable masses, no organomegaly, no rebound/guarding/ or rigidity Musculoskeletal: no swelling bilateral lower extremities Neuro: CN II-X grossly intact Constitutional Vital Signs, click to edit/add: Last Vital Signs Temp 98.4 F 05/23/24 05:19 Pulse 76 05/23/24 08:04 Resp 18 05/23/24 05:19 BP 123/71 05/23/24 05:19 Pulse Ox 95 05/23/24 05:19 O2 Del Method Nasal Cannula 05/23/24 05:19 O2 Flow Rate 3 05/23/24 05:19 Progress Note: Objective Labs Labs: Short CBC 05/23/24 Range/Units 05:55 WBC 8.7 (4.0-11.0) 10^3/uL Hgb 10.0 L (14.0-18.0) g/dL Hct 30.0 L (42.0-54.0) % Plt Count 171 (150-450) 10^3/uL BMP 05/23/24 05:55 Sodium 144 Potassium 3.7 Chloride 107 Carbon Dioxide 24.2 BUN 17.0 Creatinine 0.92 Glucose 94 Calcium 8.4 L Progress Note: A&P Assessment and Plan (1) Sepsis: Assessment and Plan: hypoxia with O2 sat of 84%, severe hypotension with blood pressure 68/46 on admission, altered mental status, respiratory distress, leukocytosis, acute renal failure, lactic acidosis secondary to healthcare acquired left lower lobe pneumonia resulting in severe sepsis. sepsis protocol in the emergency room given 3 L of IV fluids there, blood and urine cultures pending. Continue Zosyn and Linezolid. Qualifiers: Sepsis type: sepsis due to unspecified organism Sepsis acute organ dysfunction status: with acute organ dysfunction Severe sepsis acute organ dysfunction type: acute renal failure Acute renal failure type: unspecified Severe sepsis shock status: without septic shock Qualified Code(s): A41.9 - Sepsis, unspecified organism; R65.20 - Severe sepsis without septic shock; N17.9 - Acute kidney failure, unspecified (2) Pneumonia: Assessment and Plan: hypoxia with O2 sat of 84%, sepsis, WBC's now 8.7, cultures so far negative. Respiratory status improving and now on 3L NC oxygen continuous. Continue scheduled nebs. Qualifiers: Pneumonia type: due to unspecified organism Laterality: left Lung location: lower lobe of lung Qualified Code(s): J18.9 - Pneumonia, unspecified organism (3) Hypoxia: Assessment and Plan: from #1 and #2 (4) Acute kidney injury: Assessment and Plan: resolved with IVF, now cr 0.92, has marin cath, good Urine output. UA with UTI and urine culture pending (5) UTI (urinary tract infection): Assessment and Plan: continue zosyn, awaiting culture results Qualifiers: Urinary tract infection type: acute cystitis Hematuria presence: without hematuria Qualified Code(s): N30.00 - Acute cystitis without hematuria (6) High cholesterol: Assessment and Plan: continue atorvastatin (7) Hypertension: Assessment and Plan: resume home medications Qualifiers: Hypertension type: primary hypertension Qualified Code(s): I10 - Essential (primary) hypertension (8) Seizure disorder: Assessment and Plan: continue home medications Plan patient is a full code patient takes aspirin and plavix Patient is improving but still requiring oxygen. Most likely 1-2 more days for hospital necessary care. Urinary Catheter Management Urinary Catheter Management Urethral: Cath placed during this visit: yes Urethral indwelling: Yes Reason for continuing: acute urinary retention Insertion date: 05/21/24 Insertion time: 13:00
[2024-05-23] MEDS: DIVALPROEX SODIUM 500 MG TABLET.DR PO ×2 (08:25→21:51)
[2024-05-23] MEDS: PRIMIDONE 50 MG TABLET PO (08:25)
[2024-05-23] MEDS: FAMOTIDINE 20 MG TABLET 40 MG PO (08:25)
[2024-05-23] MEDS: ASPIRIN 81 MG TABLET.DR PO (08:25)
[2024-05-23] MEDS: CLOPIDOGREL BISULFATE 75 MG TABLET PO (08:25)
[2024-05-23] MEDS: ATORVASTATIN CALCIUM 40 MG TABLET 80 MG PO (08:25)
[2024-05-23] MEDS: EZETIMIBE 10 MG TABLET PO (08:25)
[2024-05-23] MEDS: TAMSULOSIN HCL 0.4 MG CAPSULE PO (08:25)
[2024-05-23] MEDS: MULTIVITAMIN TABLET 1 TAB PO (08:25)
[2024-05-23] MEDS: ENSURE HP 237 ML LIQUID PO ×2 (08:26→21:51)
[2024-05-23] MEDS: TRIAMCINOLONE ACETONIDE 0.1% CREAM 15 GM TUBE 1 APPLIC TOPICAL ×2 (08:26→21:51)
--- NOTE | 2024-05-23 09:59 | REH.PTDLY ---
Physical Therapy Daily Note PT Daily Note/Assess Start: 05/23/24 09:53 Freq: Status: Active Protocol: Document 05/23/24 09:53 ALMITA (Rec: 05/23/24 09:57 ALMITA [id number]) Physical Therapy Daily Note/Assessment Time In 09:42 Time Out 09:51 Subjective Pt sleeping upon arrival, does wake up and states his bottom hurts. Agreeable to therapy. Therapeutic Exercise Minutes (minutes) 8 Therapeutic Exercise Units 1 Therapeutic Exercise Treatment Instructed in supine AAROM exs with B LEs with exs including manual AP for stretch, heel slides, hip abd, SLR, and QS. Several cues needed for participation. Pt states that feels good during rx when performing exs, helping back/ bottom per pt. Total Therapy Minutes 8 Total Physical Therapy Units 1 Daily Note Summary Pt only agreeable to bed exs, declines sitting bedside, rolling to a different position in bed or standing at this time. Notified LEXIE Rasheed that pt declines further rx, states pt has been lethargic all morning. Continue to progress as able. Pt will need SNF at [place] for improved strength as pt cannot care for himself at this time.
[2024-05-23] MEDS: LACTATED RINGER'S SOLUTION 1,000 ML 50 ML IV (16:44)
[2024-05-24 04:00] VITALS: BP 147/68; PULSE 71; TEMP 36.8; O2SAT 93
[2024-05-24 04:46] VITALS: PULSE 71; O2SAT 93
[2024-05-24] MEDS: IPRATROPIUM/ALBUTEROL SULFATE 3 ML AMPUL.NEB IH ×2 (04:46→10:32)
[2024-05-24] MEDS: LINEZOLID IN DEXTROSE 5% 600 MG/300 ML PIGGYBACK 300 MG IV (05:15)
[2024-05-24] MEDS: GABAPENTIN 300 MG CAPSULE 600 MG PO ×2 (05:15→12:02)
[2024-05-24 06:14] LABS: Basophils Percent Auto 0.5 % (0.2-2.0); Eosinophils Absolute Auto 0.3 10^3/uL (0.0-0.7); Eosinophils Percent Auto 3.8 % (0.9-7.0); Hematocrit 31.8 % (42.0-54.0); Hemoglobin 10.5 g/dL (14.0-18.0); Immature Granulocytes Abs Auto 0.02 10^3/uL (0.00-0.03); Immature Granulocytes Pct Auto 0.3 % (0.0-0.5); Lymphocytes Absolute Auto 1.4 10^3/uL (1.2-3.8); Mean Corpuscular Hemoglobin 30.9 pg (25.9-34.0); Mean Corpuscular Volume 93.5 fL (80.0-94.0); Mean Platelet Volume 11.8 fL (9.5-13.5); Monocytes Absolute Auto 0.5 10^3/uL (0.3-0.8); Monocytes Percent Auto 7.9 % (1.7-12.0); Neutrophils Absolute Auto 4.4 10^3/uL (1.4-6.5); Neutrophils Percent Auto 66.5 % (43.0-75.0); Platelet Count 185 10^3/uL (150-450); Red Cell Distribution Width 13.2 % (11.0-15.0); White Blood Count 6.6 10^3/uL (4.0-11.0)
[2024-05-24 06:29] LABS: BUN Creatinine Ratio 7.7; Calcium 8.5 mg/dL (8.5-10.1); Carbon Dioxide 30.6 mmol/L (21.0-32.0); Chloride 105 mmol/L (98-107); Estimated GFR (African America >60 (>=60); Estimated GFR (Non-African Ame >60 (>=60); Glucose 139 mg/dL (74-106); Potassium 3.6 mmol/L (3.5-5.1); Sodium 141 mmol/L (136-145)
[2024-05-24] MEDS: MULTIVITAMIN TABLET 1 TAB PO (08:14)
[2024-05-24] MEDS: ASPIRIN 81 MG TABLET.DR PO (08:14)
[2024-05-24] MEDS: EZETIMIBE 10 MG TABLET PO (08:14)
[2024-05-24 08:15] VITALS: BP 165/76; PULSE 73; TEMP 36.7; O2SAT 91
[2024-05-24] MEDS: PIPERACILLIN SODIUM/TAZOBACTAM 3.375 GM in 0.9 % SODIUM CHLORIDE 50 ML IV (08:15)
[2024-05-24] MEDS: FAMOTIDINE 20 MG TABLET 40 MG PO (08:15)
[2024-05-24] MEDS: ATORVASTATIN CALCIUM 40 MG TABLET 80 MG PO (08:15)
[2024-05-24] MEDS: TAMSULOSIN HCL 0.4 MG CAPSULE PO (08:15)
[2024-05-24] MEDS: DIVALPROEX SODIUM 500 MG TABLET.DR PO (08:15)
[2024-05-24] MEDS: PRIMIDONE 50 MG TABLET PO (08:15)
[2024-05-24] MEDS: CLOPIDOGREL BISULFATE 75 MG TABLET PO (08:15)
--- NOTE | 2024-05-24 10:15 | P.PN_ITS ---
Progress Note: Subjective Subjective Interval history: Patient resting comfortably in bed. Denies any current issues or concerns. Says he is feeling better. No longer requiring oxygen. Galindo catheter in place. Exam Narrative Exam Narrative: General: Patient is alert, and oriented to person, proper hygiene Skin: no visible rashes, or ulcers Head: atraumatic, acephalic Heart: Normal rate and rhythm, no murmurs/rubs/gallops Lungs: no audible wheezes, or crackles Abdomen: Normal audible bowel sounds, no distension, No palpable masses, no organomegaly, no rebound/guarding/ or rigidity Musculoskeletal: no swelling bilateral lower extremities Neuro: CN II-X grossly intact Constitutional Vital Signs, click to edit/add: Last Vital Signs Temp 98.1 F 05/24/24 08:15 Pulse 73 05/24/24 08:15 Resp 16 05/24/24 08:15 BP 165/76 H 05/24/24 08:15 Pulse Ox 91 L 05/24/24 08:15 O2 Del Method Room Air 05/24/24 08:15 O2 Flow Rate 1 05/24/24 04:46 Progress Note: Objective Labs Labs: Short CBC 05/24/24 Range/Units 06:08 WBC 6.6 (4.0-11.0) 10^3/uL Hgb 10.5 L (14.0-18.0) g/dL Hct 31.8 L (42.0-54.0) % Plt Count 185 (150-450) 10^3/uL BMP 05/24/24 06:08 Sodium 141 Potassium 3.6 Chloride 105 Carbon Dioxide 30.6 BUN 7.0 Creatinine 0.91 Glucose 139 H Calcium 8.5 Progress Note: A&P Assessment and Plan (1) Sepsis: Assessment and Plan: hypoxia with O2 sat of 84%, severe hypotension with blood pressure 68/46 on admission, altered mental status, respiratory distress, leukocytosis, acute renal failure, lactic acidosis secondary to healthcare acquired left lower lobe pneumonia resulting in severe sepsis. sepsis protocol in the emergency room given 3 L of IV fluids there, blood and urine cultures pending but no growth so far. Continue Zosyn and Linezolid. Sepsis has resolved. Qualifiers: Sepsis type: sepsis due to unspecified organism Sepsis acute organ dys function status: with acute organ dysfunction Severe sepsis acute organ dysfunction type: acute renal failure Acute renal failure type: unspecified Severe sepsis shock status: without septic shock Qualified Code(s): A41.9 - Sepsis, unspecified organism; R65.20 - Severe sepsis without septic shock; N17.9 - Acute kidney failure, unspecified (2) Pneumonia: Assessment and Plan: hypoxia with O2 sat of 84%, sepsis, WBC's now 6.6, cultures so far negative. Respiratory status improving and not requiring oxygen to maintain sats. Continue scheduled nebs. Qualifiers: Laterality: left Lung location: lower lobe of lung Pneumonia type: due to unspecified organism Qualified Code(s): J18.9 - Pneumonia, unspecified organism (3) Acute kidney injury: Assessment and Plan: resolved with IVF. stop Linezolid today. Cr 0.91, stop fluids (4) UTI (urinary tract infection): Assessment and Plan: will stop linezolid and zosyn. Since renal function normal range and back to baseline will place on Levaquin PO Qualifiers: Urinary tract infection type: acute cystitis Hematuria presence: without hematuria Qualified Code(s): N30.00 - Acute cystitis without hematuria (5) High cholesterol: Assessment and Plan: continue statin (6) Hypertension: Assessment and Plan: continue home meds Qualifiers: Hypertension type: primary hypertension Qualified Code(s): I10 - Essential (primary) hypertension (7) Seizure disorder: Assessment and Plan: continue home meds Plan Patient is a full code Lovenox for dvt prophylaxis Patient has improved, if able to keep oxygen stats up and can d/c Galindo will be discharged to the [facility] today for acute rehab. Urinary Catheter Management Urinary Catheter Management Urethral: Cath placed during this visit: yes Urethral indwelling: Yes Reason for continuing: acute urinary retention Insertion date: 05/21/24 Insertion time: 13:00
[2024-05-24 10:30] VITALS: PULSE 7; O2SAT 93
[2024-05-24] MEDS: LEVOFLOXACIN 750 MG TABLET PO (12:02)
[2024-05-24 12:05] VITALS: BP 127/63; PULSE 74; TEMP 36.9; O2SAT 90
--- NOTE | 2024-05-24 14:23 | PM.DS1 ---
DS: Providers Provider Date of admission: 05/21/24 15:57 Primary care physician: Norbert Jiang MD Admitting clinician: Norbert Jiang Consults: 05/21/24 17:12 Consult to Pharmacy Routine Consulting Provider: Reason for consultation: Please [place] me when Med Rec is Updated Has provider been notified: No Occupational Therapy Eval and Treat Routine Reason for consultation: Only if needed for Rehab Has provider been notified: No Physical Therapy Eval and Treat Routine Reason for consultation: Eval and Treat Has provider been notified: No Discharging clinician: Carina Wade DS: Diagnosis Discharge Diagnosis (1) Sepsis: Qualifiers: Sepsis type: sepsis due to unspecified organism Sepsis acute organ dysfunction status: with acute organ dysfunction Severe sepsis acute organ dysfunction type: acute renal failure Acute renal failure type: unspecified Severe sepsis shock status: without septic shock Qualified Code(s): A41.9 - Sepsis, unspecified organism; R65.20 - Severe sepsis without septic shock; N17.9 - Acute kidney failure, unspecified (2) Pneumonia: Qualifiers: Laterality: left Lung location: lower lobe of lung Pneumonia type: due to unspecified organism Qualified Code(s): J18.9 - Pneumonia, unspecified organism (3) Acute kidney injury: (4) UTI (urinary tract infection): Qualifiers: Urinary tract infection type: acute cystitis Hematuria presence: without hematuria Qualified Code(s): N30.00 - Acute cystitis without hematuria (5) High cholesterol: (6) Hypertension: Qualifiers: Hypertension type: primary hypertension Qualified Code(s): I10 - Essential (primary) hypertension (7) Seizure disorder: DS: Summary Hospital Course Hospital Course: please see progress note dated 05/24/24. Patient did well off oxygen. Galindo Catheter was removed and patient was able to void on his own. He will be treated for his UTI and HCAP's with levaquin 750mg PO daily x 5 days. He will be discharged today to the [facility] for half-way services . Status at Discharge Functional status at discharge: bed bound Overall status at discharge: patient is progressing back to baseline Time Spent with Patient Time attestation: Total time spent providing and/or coordinating discharge services: Time spent: greater than 30 minutes Exam Narrative Exam Narrative: no change from progress note dated 05/24/24 Constitutional Vital Signs, click to edit/add: Last Vital Signs Temp 98.4 F 05/24/24 12:05 Pulse 74 05/24/24 12:05 Resp 18 05/24/24 12:05 BP 127/63 05/24/24 12:05 Pulse Ox 90 L 05/24/24 12:05 O2 Del Method Room Air 05/24/24 12:05 O2 Flow Rate 1 05/24/24 04:46 DS: Data Data Completed and Pending Labs on day of discharge: Labs from last 24 hours 05/24/24 06:08 WBC 6.6 RBC 3.40 L Hgb 10.5 L Hct 31.8 L MCV 93.5 MCH 30.9 MCHC 33.0 RDW 13.2 Plt Count 185 MPV 11.8 Neut % (Auto) 66.5 Lymph % (Auto) 21.0 [place] % (Auto) 7.9 Eos % (Auto) 3.8 Baso % (Auto) 0.5 Neut # (Auto) 4.4 Lymph # (Auto) 1.4 [place]oddard # (Auto) 0.5 Eos # (Auto) 0.3 Baso # (Auto) 0.0 Abs Immat Gran (auto) 0.02 Imm/Tot Granulo (auto) 0.3 Sodium 141 Potassium 3.6 Chloride 105 Carbon Dioxide 30.6 Anion Gap 9.0 BUN 7.0 Creatinine 0.91 Est GFR ( Amer) >60 Est GFR (Non-Af Amer) >60 BUN/Creatinine Ratio 7.7 Glucose 139 H Calcium 8.5 Discharge Plan Discharge Disposition: Xfer SNF Condition: Fair Discharge Medications: New levofloxacin 750 mg Tablet 750 mg PO QD 5 Days Qty: 5 0RF Ensure Active Protein-Muscle Liquid 1 ea PO BID 30 Days Qty: 60 0RF Continued clopidogrel 75 mg tablet 75 mg PO QDAY carvedilol [Coreg] 12.5 mg tablet 12.5 mg PO BID Rx Instructions: must administer with a meal/food celecoxib 200 mg Capsule 200 mg PO DAILY Qty: 30 11RF mirtazapine 45 mg tablet 45 mg PO .QHS ezetimibe 10 mg tablet 10 mg PO DAILY cyclobenzaprine 10 mg tablet 10 mg PO TID divalproex 500 mg tablet,delayed release (DR/EC) 500 mg PO Q12H famotidine 40 mg tablet 40 mg PO DAILY tamsulosin 0.4 mg capsule 0.4 mg PO DAILY tramadol 50 mg tablet 100 mg PO QID PRN (Reason: pain) candesartan 8 mg tablet 8 mg PO DAILY gabapentin 600 mg tablet 600 mg PO QID multivitamin with folic acid [High Potency Multivitamin] 1 tab PO DAILY docusate sodium 100 mg capsule 100 mg PO .qod acetaminophen 500 mg capsule 500 mg PO TID atorvastatin 80 mg tablet 80 mg PO DAILY primidone 50 mg tablet 50 mg PO DAILY aspirin 81 mg tablet,delayed release (DR/EC) 81 mg PO DAILY triamcinolone acetonide 0.1 % cream 1 applic TOPICAL BID 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
== END 2024-05-24 17:20 | DRG 871 ==
LOC: ER 15:13 → MS 16:03
PROVIDERS: Admitting Provider Family Medicine; Emergency Provider Emergency Medicine; PCP Family Medicine; Visit Provider Family Medicine
DX: A41.9 Sepsis, unspecified organism (principal); J18.9 Pneumonia, unspecified organism; N17.9 Acute kidney failure, unspecified; E87.20 Acidosis, unspecified; N30.00 Acute cystitis without hematuria; R65.20 Severe sepsis without septic shock; E86.0 Dehydration; D50.9 Iron deficiency anemia, unspecified; N40.0 Benign prostatic hyperplasia without lower urinary tract symptoms; K21.9 Gastro-esophageal reflux disease without esophagitis; G40.909 Epilepsy, unspecified, not intractable, without status epilepticus; M51.16 Intervertebral disc disorders with radiculopathy, lumbar region; I25.10 Atherosclerotic heart disease of native coronary artery without angina pectoris; I10 Essential (primary) hypertension; E78.00 Pure hypercholesterolemia, unspecified; R06.03 Acute respiratory distress; F03.90 Unspecified dementia, unspecified severity, without behavioral disturbance, psychotic disturbance, mood disturbance, and anxiety; Y95 Nosocomial condition; R29.6 Repeated falls; F17.210 Nicotine dependence, cigarettes, uncomplicated; G47.30 Sleep apnea, unspecified; G25.81 Restless legs syndrome; F41.9 Anxiety disorder, unspecified; F32.A Depression, unspecified; R09.02 Hypoxemia; Z98.1 Arthrodesis status; Z95.1 Presence of aortocoronary bypass graft; Z95.5 Presence of coronary angioplasty implant and graft; Z79.899 Other long term (current) drug therapy; Z79.82 Long term (current) use of aspirin; Z20.822 Contact with and (suspected) exposure to COVID-19
CPT/HCPCS: 36415; 51702; 70450; 71045; 80048; 81001; 83605; 84484; 85025; 87040; 87070; 87086; 87811; 93005; 94640; 94667; 94668; 94761; 96361; 96365; 96366; 96367; 96368; 97110; 97161; 97165; 97530; 99285; J0456; J0696; J2020; J2543

== ENCOUNTER 2024-09-09 23:22 | Inpatient (IN) | payer MEDICARE, BC, SELFPAY ==
[2024-09-09 23:26] VITALS: BP 146/84; PULSE 96; PULSE 99; TEMP 36.6; O2SAT 71; O2SAT 94
--- NOTE | 2024-09-09 23:30 | CT_ITS ---
The [address] [address] Patient Name: TAYLOR MCCLELLAN MRN: [id number] date: 1955 Sex: M Assigned Patient Location: ER Current Patient Location: Accession/Order Number: [id number] Exam Date: 09/09/2024 23:59 Report Date: 09/10/2024 01:17 At the request of: ELIAZAR SAN Procedure: CT head/brain wo con EXAM: CT head/brain wo con, CT cervical spine wo con INDICATION: 68 years old; Male. Fall. Change in mental status. TECHNIQUE: CT Head (ax/cor/sag reformats). Ionizing radiation dose reduced via iterative reconstruction/FBP blend and body size kV/mA adjustment. Comparison: Head CT dated 05/21/2024. FINDINGS: POSTOPERATIVE CHANGES: None. BRAIN PARENCHYMA: No intraparenchymal or extra-axial hemorrhage. No mass effect. No midline shift or herniation. 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 Normal lange/white differentiation. VENTRICLES/EXTRA-AXIAL SPACES: Enlarged, consistent with atrophy. SINUSES/MASTOIDS: The visualized sinuses are clear although the maxillary sinuses are not completely included. Mastoids and middle ears are clear. MSK: No displaced or depressed calvarial fracture. OTHER: No hyperdense intraluminal thrombus. Vascular calcifications are present. A partially empty sella is noted. TECHNIQUE: CT imaging of the cervical spine was performed. IV contrast: None. Dose reduction techniques were achieved by using automated exposure control and/or adjustment of mA and/or kV according to patient size and/or use of iterative reconstruction technique. COMPARISON: Images from a CT angiogram of the neck dated 04/29/2024. FINDINGS: POSTOPERATIVE CHANGES: None. ALIGNMENT: Nonspecific straightening of the normal cervical curve. COMPRESSION FRACTURES: No fracture or vertebral body collapse. No bone displacement. No asymmetric widening of the facets. PREVERTEBRAL SOFT TISSUES: Normal. CRANIOCERVICAL JUNCTION: There is a normal relationship of the occipital condyles, lateral masses of C1, and articular surfaces of C2. The base of the dens and body of C2 are intact. There is narrowing of the predental space with spurring arising from the anterior arch of C1 and the tip of the dens. POSTERIOR FOSSA: The cerebellar tonsils are above the foramen magnum. Disc levels: C2-C3: No disc herniation. No spinal canal or foraminal narrowing. C3-C4: Disc space narrowing. Anterior osteophyte formation. Broad-based posterior disc osteophyte complex. Mild to moderate central canal stenosis. Neural foramina are patent. C4-C5: Disc space narrowing. Bulky bridging anterior osteophyte formation. Broad-based central disc osteophyte complex posteriorly projecting greater to the left. Moderate to severe central canal stenosis. Uncovertebral joint degeneration. Moderate right and severe left foraminal stenosis. C5-C6: Anterior osteophyte formation. Central disc osteophyte complex posteriorly. Central canal patent. Neural foramina patent. C6-C7: Anterior osteophyte formation. Central canal and neural foramina patent. C7-T1: Beam hardening artifacts. Anterior osteophytes. Central canal patent. Neural foramina patent. UPPER THORACIC SPINE: At T1-T2, Beam hardening artifacts. Anterior osteophytes. Central canal and neural foramina patent. OTHER: No thyroid nodule or adenopathy. Extracranial vascular calcification. Vascular stent in the carotid on the right. These also see the separate dictations of the CT the chest, abdomen, and pelvis. CT/CT head/brain wo con IMPRESSION: 1. No acute intracranial abnormality. No hemorrhage or mass effect. 2. Old lacunar infarctions. 3. Atrophy. 4. Vascular calcifications. 5. Multilevel cervical spondylosis. No acute fracture. Please also see the separate dictations of the CT the chest, abdomen, and pelvis. Electronically authenticated by: ERICKSON SOLITARIO Date: 09/10/2024 01:17
--- NOTE | 2024-09-09 23:30 | CT_ITS ---
The [address] [address] Patient Name: TAYLOR MCCLELLAN MRN: [id number] date: 1955 Sex: M Assigned Patient Location: ER Current Patient Location: Accession/Order Number: [id number] Exam Date: 09/09/2024 23:59 Report Date: 09/10/2024 01:17 At the request of: ELIAZAR SAN Procedure: CT cervical spine wo con EXAM: CT head/brain wo con, CT cervical spine wo con INDICATION: 68 years old; Male. Fall. Change in mental status. TECHNIQUE: CT Head (ax/cor/sag reformats). Ionizing radiation dose reduced via iterative reconstruction/FBP blend and body size kV/mA adjustment. Comparison: Head CT dated 05/21/2024. FINDINGS: POSTOPERATIVE CHANGES: None. BRAIN PARENCHYMA: No intraparenchymal or extra-axial hemorrhage. No mass effect. No midline shift or herniation. 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 Normal lange/white differentiation. VENTRICLES/EXTRA-AXIAL SPACES: Enlarged, consistent with atrophy. SINUSES/MASTOIDS: The visualized sinuses are clear although the maxillary sinuses are not completely included. Mastoids and middle ears are clear. MSK: No displaced or depressed calvarial fracture. OTHER: No hyperdense intraluminal thrombus. Vascular calcifications are present. A partially empty sella is noted. TECHNIQUE: CT imaging of the cervical spine was performed. IV contrast: None. Dose reduction techniques were achieved by using automated exposure control and/or adjustment of mA and/or kV according to patient size and/or use of iterative reconstruction technique. COMPARISON: Images from a CT angiogram of the neck dated 04/29/2024. FINDINGS: POSTOPERATIVE CHANGES: None. ALIGNMENT: Nonspecific straightening of the normal cervical curve. COMPRESSION FRACTURES: No fracture or vertebral body collapse. No bone displacement. No asymmetric widening of the facets. PREVERTEBRAL SOFT TISSUES: Normal. CRANIOCERVICAL JUNCTION: There is a normal relationship of the occipital condyles, lateral masses of C1, and articular surfaces of C2. The base of the dens and body of C2 are intact. There is narrowing of the predental space with spurring arising from the anterior arch of C1 and the tip of the dens. POSTERIOR FOSSA: The cerebellar tonsils are above the foramen magnum. Disc levels: C2-C3: No disc herniation. No spinal canal or foraminal narrowing. C3-C4: Disc space narrowing. Anterior osteophyte formation. Broad-based posterior disc osteophyte complex. Mild to moderate central canal stenosis. Neural foramina are patent. C4-C5: Disc space narrowing. Bulky bridging anterior osteophyte formation. Broad-based central disc osteophyte complex posteriorly projecting greater to the left. Moderate to severe central canal stenosis. Uncovertebral joint degeneration. Moderate right and severe left foraminal stenosis. C5-C6: Anterior osteophyte formation. Central disc osteophyte complex posteriorly. Central canal patent. Neural foramina patent. C6-C7: Anterior osteophyte formation. Central canal and neural foramina patent. C7-T1: Beam hardening artifacts. Anterior osteophytes. Central canal patent. Neural foramina patent. UPPER THORACIC SPINE: At T1-T2, Beam hardening artifacts. Anterior osteophytes. Central canal and neural foramina patent. OTHER: No thyroid nodule or adenopathy. Extracranial vascular calcification. Vascular stent in the carotid on the right. These also see the separate dictations of the CT the chest, abdomen, and pelvis. CT/CT cervical spine wo con IMPRESSION: 1. No acute intracranial abnormality. No hemorrhage or mass effect. 2. Old lacunar infarctions. 3. Atrophy. 4. Vascular calcifications. 5. Multilevel cervical spondylosis. No acute fracture. Please also see the separate dictations of the CT the chest, abdomen, and pelvis. Electronically authenticated by: ERICKSON SOLITARIO Date: 09/10/2024 01:17
--- NOTE | 2024-09-09 23:30 | CT_ITS ---
[address] [address] Patient Name: TAYLOR MCCLELLAN MRN: [id number] date: 1955 Sex: M Assigned Patient Location: ER Current Patient Location: Accession/Order Number: [id number] Exam Date: 09/09/2024 23:59 Report Date: 09/10/2024 01:25 At the request of: ELIAZAR SAN Procedure: CT abdomen pelvis w con EXAMINATION: CT abdomen pelvis w con, CT chest w con HISTORY: fall, abdominal pain COMPARISON: No relevant comparison available. TECHNIQUE: Axial, Coronal, and Sagittal CT images were obtained without and/or with IV contrast as indicated by examination type. Dose reduction techniques were achieved by using automated exposure control and/or adjustment of mA and/or kV according to patient size and/or use of iterative reconstruction technique. FINDINGS: LUNGS: Mild hazy opacities throughout both lungs. Mild emphysematous changes. PLEURA: No mass or effusion. VASCULATURE: No visible pulmonary arterial thrombus or attenuation. JULIA: No mass or adenopathy. MEDIASTINUM: No mass or adenopathy. CARDIAC: No enlargement, pericardial thickening, or pericardial effusion. AORTA: No aneurysm or dissection.. CHEST WALL: No mass or axillary adenopathy. LIVER: No enlargement, atrophy, abnormal density, or significant focal lesion. BILIARY: No dilatation or calcification. PANCREAS: No lesion, fluid collection, ductal dilatation, or atrophy. SPLEEN: No enlargement or focal lesion. ADRENALS: No mass or enlargement. KIDNEYS: No mass, obstruction, or calcification. BOWEL/MESENTERY: No visible mass, obstruction, or bowel wall thickening. AORTA/VASCULAR: Marked atherosclerotic disease of the abdominal aorta and branches. No aneurysm. RETROPERITONEUM: No mass or adenopathy. LYMPH NODES: No adenopathy. URINARY BLADDER: No visible focal wall thickening, lesion, or calculus. PELVIC ORGANS: No visible mass. Pelvic organs appropriate for patient age. ABDOMINAL WALL: Small fat filled left inguinal hernia without strangulation. BONES: Mild compression fracture of L1 with increased density adjacent the superior endplate. Posterior mechanical fusion of L4-L5 on the right. Moderate marked disc space narrowing L4-L5, L5-S1. OTHER: Negative. CT/CT abdomen pelvis w con IMPRESSION: 1. Mild to moderate haziness throughout both lungs suggestive of pulmonary edema. 2. Mild compression fracture of L1 suspected to be acute to subacute. This is new compared to 04/14/2024. 3. No acute solid or hollow organ injury of the chest, abdomen, pelvis. Electronically authenticated by: LIAM SCHUMACHER Date: 09/10/2024 01:25
--- NOTE | 2024-09-09 23:30 | ECG_ITS ---
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
--- NOTE | 2024-09-09 23:30 | CT_ITS ---
[address] [address] Patient Name: TAYLOR MCCLELLAN MRN: [id number] date: 1955 Sex: M Assigned Patient Location: ER Current Patient Location: Accession/Order Number: [id number] Exam Date: 09/09/2024 23:59 Report Date: 09/10/2024 01:25 At the request of: ELIAZAR SAN Procedure: CT chest w con EXAMINATION: CT abdomen pelvis w con, CT chest w con HISTORY: fall, abdominal pain COMPARISON: No relevant comparison available. TECHNIQUE: Axial, Coronal, and Sagittal CT images were obtained without and/or with IV contrast as indicated by examination type. Dose reduction techniques were achieved by using automated exposure control and/or adjustment of mA and/or kV according to patient size and/or use of iterative reconstruction technique. FINDINGS: LUNGS: Mild hazy opacities throughout both lungs. Mild emphysematous changes. PLEURA: No mass or effusion. VASCULATURE: No visible pulmonary arterial thrombus or attenuation. JULIA: No mass or adenopathy. MEDIASTINUM: No mass or adenopathy. CARDIAC: No enlargement, pericardial thickening, or pericardial effusion. AORTA: No aneurysm or dissection.. CHEST WALL: No mass or axillary adenopathy. LIVER: No enlargement, atrophy, abnormal density, or significant focal lesion. BILIARY: No dilatation or calcification. PANCREAS: No lesion, fluid collection, ductal dilatation, or atrophy. SPLEEN: No enlargement or focal lesion. ADRENALS: No mass or enlargement. KIDNEYS: No mass, obstruction, or calcification. BOWEL/MESENTERY: No visible mass, obstruction, or bowel wall thickening. AORTA/VASCULAR: Marked atherosclerotic disease of the abdominal aorta and branches. No aneurysm. RETROPERITONEUM: No mass or adenopathy. LYMPH NODES: No adenopathy. URINARY BLADDER: No visible focal wall thickening, lesion, or calculus. PELVIC ORGANS: No visible mass. Pelvic organs appropriate for patient age. ABDOMINAL WALL: Small fat filled left inguinal hernia without strangulation. BONES: Mild compression fracture of L1 with increased density adjacent the superior endplate. Posterior mechanical fusion of L4-L5 on the right. Moderate marked disc space narrowing L4-L5, L5-S1. OTHER: Negative. CT/CT chest w con IMPRESSION: 1. Mild to moderate haziness throughout both lungs suggestive of pulmonary edema. 2. Mild compression fracture of L1 suspected to be acute to subacute. This is new compared to 04/14/2024. 3. No acute solid or hollow organ injury of the chest, abdomen, pelvis. Electronically authenticated by: LIAM SCHUMACHER Date: 09/10/2024 01:25
[2024-09-09 23:35] VITALS: O2SAT 95
[2024-09-09 23:40] VITALS: PULSE 96; O2SAT 93
[2024-09-09 23:41] LABS: Glucometer 103 mg/dL (74-106)
--- OUTSIDE RECORDS SUMMARY | 2024-09-09 23:41 | XMS_ITS | CCD ---
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 Pily Espinal Other Provider [phone] MD Adelaide Leonardo Other Provider MD Itzel Adams Referring Provider MD Genesis Reynolds Primary Care Provider MD Benson Lane S Attending Provider [phone] ELIOT VILLANUEVALAS Admitting Unavailable GAIL ., DR HURTADO Primary Care Unavailable SONYAY ., DR HURTADO Attending Unavailable SONYAY ., [...] ANA PAULA ., LAVELL Consulting Unavailable AVA ENFF Consulting Unavailable GAIL ., DR HURTADO Primary [...] WERNER Admitting Unavailable Itzel Adams Attending Unavailable Trabbravo, Itzel Attending Unavailable Bryan, Itzel Attending Unavailable Bryan, Itzel Attending Unavailable Sharad, MsElizabeth Lilia Jaqueline Moore Attending Maria Teresa Reynolds, Genesis M Primary Care Unavailable Domingo, Benson S Admitting Unavailable Domingo, Benson S Attending Unavailable Vivian, Danilo Admitting Unavailab le VivianDanilo wade Attending Unavailab le Gail, Genesis M Primary Care Unavailable Claribel LEE, Bro Barry Primary Care Provider EBENEZER HOPKINS Referring Unavailable CLARIBEL, BRO BARRY Primary Care Unavailabl e SUSAN URIOSTEGUI Referring Unavailable NADERER, BRO BARRY Primary Care Unavailabl e CHRISEREJudy, BRO BARRY Primary Care Unavailabl e ANTHONY GREENE Attending [...] Unavailable HOY, GENESIS M Primary Care Un[facility] Unavailabl e Allergies Allergy Classification Reported Allergen(s) Allergy Type Date of Onset Reaction(s) Facility (6 sources) Amitriptyline; Translations: [Amitriptyline] Drug Allergy 05-18-20 14 Unknown Reaction [facility] (12 sources) atorvastatin; Translations: [atorvastatin] Drug Allergy 01-24-20 19 Unknown Reaction, Unknown [facility] (6 sources) chlordiazePOXIDE; Translations: [chlordiazepoxide] Drug Allergy 01-24-20 19 Unknown Reaction [facility] (6 sources) clidinium; Translations: [clidinium] Drug Allergy 01-24-20 19 Unknown Reaction [facility] (16 sources) fentaNYL; Translations: [Fentanyl] Drug Allergy 12-27-19 17 Unknown Reaction, Unknown [facility] (9 sources) venlafaxine; Translations: [venlafaxine] Drug Allergy 05-13-20 14 Other (See Comments) [facility] (4 sources) Citalopram; Translations: [Citalopram] Drug Allergy 01-11-20 21 Unknown Reaction [facility] (4 sources) Simvastatin; Translations: [simvastatin] Drug Allergy 07-17-20 22 Unknown Reaction [facility] (7 sources) Succinylcholine; Translations: [Succinylcholine] Drug Allergy 09-08-20 04 Unknown Reaction [facility] (7 sources) Amitriptyline; Translations: [Elavil] Drug Allergy 04-20-20 14 Unknown [facility] Repository (6 sources) chlordiazePOXIDE / clidinium Drug Allergy Unknown [employer] Other (7 sources) venlafaxine; Translations: [Effexor] Drug Allergy 04-06-20 14 Unknown [facility] Repository (1 source) buPROPion Drug Allergy [facility] Repository (1 source) Citalopram Drug Allergy 12-31-19 20 [facility] Repository (1 source) mirabegron Drug Allergy [facility] Repository (1 source) Simvastatin Drug Allergy [facility] Repository (1 source) tiZANidine Drug Allergy [facility] Repository (1 source) Amitriptyline Drug Allergy 05-18-20 14 [facility] [employer] Work Phone: (1 source) metFORMIN; Translations: [METFORMIN] Drug Allergy 11-30-19 22 [facility] Repository (1 source) OTHER; Translations: [OTHER] Propensity to adverse reactions to food (disorder) 01-11-20 [facility] Repository Medications Current Medications Medication Drug [...] 11, 2018 11:00pm December 23, 2018 4:29pm [id number] 200 actuat albuterol 0.09 mg/actuat metered dose [...] 11, 2018 11:00pm January 17, 2018 10:29am losartan potassium 50 mg oral tablet (1 source) Angiotensin 2 Receptor Barbara Start: 06-25-2024 take 1 tablet by mouth once daily losartan (Cozaar) 50 MG tablet Indications: Primary hypertension (CMS/HCC) TAKE ONE TABLET BY MOUTH DAILY 30 tablet 06/25/2024 Active metoprolol tartrate 50 mg oral tablet (1 source) beta-Adrenergic Barbara metoprolol tartrate (LOPRESSOR) 50 MG tablet Take 50 [...] tablet by mouth twice daily Hydrocodone-Aceta minophen ([place]) 5-325 mg tablet Discontinued 1 TAB PO [...] 2019 9:31pm take 1 tablet by chirag three times daily as needed hydrOXYzine HCl (ATARAX) 50 MG tablet Take 1 tablet by mouth 3 times daily as needed for Itching 0 Active take 1 tablet by chirag four times daily as needed hydrOXYzine HCl [...] Coronary arteriosclerosis; Translations: [Atherosclerotic heart disease of [place] coronary artery without angina pectoris] Onset: 11-25-2014 [...] unspecified] Onset: 11-25-2014 07-18-2022 Chronic Essential hypertension (13 sources) Hypertensive disorder; Translations: [Essential (primary) hypertension] [...] 12-26-2016 Chronic Other aftercare (1 source) Other half-way (current) drug therapy; Translations: [OTH [facility] CURRENT DRUG THERAPY] Onset: 01-21-2023 Episodic Other aftercare (1 source) senior care (current) use of antithrombotics/antip latelets; 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/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 LETS] Onset: 12-20-2022 Episodic Other circulatory [...] 06-25-2022 07-17-2022 Episodic Other aftercare (1 source) 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 The caroline hayes was examined and there are no changes to the H&P. [facility] NURSNOTEon 02-25-2024 NURSNOTTariq RN educated pt on d/ c instructions. RN encouraged pt to voice any questions or concerns. Pt verbalizes no questions or concerns at this time. Pt was wheeled off of unit with all of belongings. [facility] Orders Onlyon 02-20-2024 Orders Only [id number] Pedro Luis Mcclellan ph 1955 M Date Provider Department Center 02/20/2024 ZANDRA TEJADA [facility] Family History Problem Relation Age of Onset No Known Problems Mother No Known Problems Father Family Status - Relation Status Age at Mother Father Normal [facility] HPon 02-17-2024 [facility] Cardiology Clinic Note Chief Complaint: New patient here to establish care. Ref from Dr. Reynolds for abnormal stress test. 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 Stress test was ordered for [...] catheterization. 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 Normal [facility] Office Visiton 02-17-2024 Follow-up visit [id number] LemueltariqPedro Luis ph J 1955 M Date Provider Department [place] 02/17/2024 MITZY AMEZCUA Family History Problem Relation Age of Onset No Known Problems Mother No Known Problems Father Family Status - Relation Status Age at Mother Father Level of Service:06534 [place] OFFICE/OUTPATIENT [facility] HIGH MDM 60 MINUTES Normal [facility] Orders Onlyon 02-17-2024 Orders Only [id number] Pedro Luis Mcclellan ph J 1955 M Date Provider Department [place] 02/17/2024 DIRK JARA CARD [facility] Family History Problem Relation Age of Onset No Known Problems Mother No Known Problems Father Family Status - Relation Status Age at Mother Father Normal [facility] Urinalysis w/ Microon 2023 Bacteria TRACE Abnormal NONE [facility] Comment on above: Performed By: #### U AMIC #### [facility] [address] [place] [address] Seismographer: Sarai Howell MD Bilirubin, SemiQt,Ur Negative Normal NEG [facility] Comment on above: Performed By: #### U AMIC #### [facility] [address] [place] [address] Seismographer: Sarai Howell MD Blood, Urine Negative Normal NEG [facility] Comment on above: Performed By: #### U AMIC #### [facility] [address] [place] [address] Seismographer: Sarai Howell MD Clarity (U) Clear Normal CLEAR [facility] Comment on above: Performed By: #### U AMIC #### [facility] [address] [place], [place] [address] Seismographer: Sarai Howell MD Color (U) Yellow Normal YEL [facility] Comment on above: Performed By: #### U AMIC #### [facility] [address] [place], [place] [address] Seismographer: Sarai Howell MD Epithelial cells LM Ql (Urine sed) 0 TO 2 Normal 0-5 [facility] Comment on above: Performed By: #### U AMIC #### [facility] [address] [place], [place] [phone] Seismographer: Sarai Howell MD Glucose Ql (U) Negative Normal NEG [facility] Comment on above: Performed By: #### U AMIC #### [facility] [address] [place] [address] [place], [place] 9[address]83 Seismographer: Sarai Howell MD Ketones Ql (U) Negative Normal NEG [facility] Comment on above: Performed By: #### U AMIC #### [facility] [address] [place] [address] [place], [place] [phone] Seismographer: Sarai Howell MD Leukocyte esterase Test strip Ql (U) Negative Normal NEG [facility] Comment on above: Performed By: #### U AMIC #### [facility] [address] [place], [place] [phone] Seismographer: Sarai Howell MD Mucus Strands TRACE Abnormal NONE [facility] Comment on above: Performed By: #### U AMIC #### [facility] [address] [place], [place] [address] Seismographer: Sarai Howell MD Nitrite,Ur Negative Normal [facility] Comment on above: Performed By: #### U AMIC #### [facility] [address] [place], [place] [address] Seismographer: Sarai Howell MD PH,Ur 7.0 Normal 5.0-9.0 [facility] Comment on above: Performed By: #### U AMIC #### [facility] [address] [place], [place] [address] Seismographer: Sarai Howell MD Protein Ql (U) Negative Normal NEG [facility] Comment on above: Performed By: #### U AMIC #### [facility] [address] [place], [place] [address] Seismographer: Sarai Howell MD Spec. Gregory,Ur 1.015 Normal 1.010-1.02 0 [facility] Comment on above: Performed By: #### U AMIC #### [facility] [address] [place] [address] [place] [place], [place] 1196083 Seismographer: Sarai Howell MD Urine RBC's 0 TO 2 Normal 0-2 [facility] Comment on above: Performed By: #### U AMIC #### [facility] [address] [place] [address] [place] [place], [place] [phone] Seismographer: Sarai Howell MD Urine WBC's 2 TO 5 Normal 0-5 [facility] Comment on above: Performed By: #### U AMIC #### [facility] [address] [place] [address] [place] [place], [place] [phone] Seismographer: Sarai Howell MD Urobilinogen,Ur Normal Normal 0.0-1.0 [facility] Comment on above: Performed By: #### U AMIC #### [facility] [address] [place], [place] [address] Seismographer: Sarai Howell MD Urinalysis with Microscopico n 11-10-2023 Bacteria LM Ql (Urine sed) TRACE Abnormal None [facility] Bilirubin Ql (U) Negative NEGATIVE [facility] Clarity (U) Clear Clear [facility] Color (U) Yellow Yellow [facility] Epithelial cells LM.HPF (Urine sed) [#/Area] 0 TO 2 [facility] Glucose Test strip (U) [Mass/Vol] Negative NEGATIVE mg/dL [facility] Hemoglobin Auto test strip Ql (U) Negative NEGATIVE [facility] Interpretation and review of laboratory results Abnormal [facility] Ketones (U) [Mass/Vol] Negative NEGAT MELISSA mg/dL [facility] Leukocyte esterase Test strip Ql (U) Negative NEGATIVE [facility] Mucus Ql (Urine sed) TRACE Abnormal None [facility] Nitrite Ql (U) Negative NEGATIVE [facility] pH (U) 7.0 [pH] 5.0 - 9.0 [facility] Protein (U) [Mass/Vol] Negative NEGAT MELISSA mg/dL [facility] RBC LM.HPF (Urine sed) [#/Area] 0 TO 2 [facility] Specific gravity (U) [Rel density] 1.015 1.010 - 1.020 [facility] Urobilinogen Qn (U) Normal 0.0 - 1. 0 EU/dL [facility] WBC LM.HPF (Urine sed) [#/Area] 2 TO 5 [facility] Cult, Bloodon 04-30-2023 Cult, Blood Specimen Description .BLOOD Special Requests lhand, 9ml, 2 bottles Culture NO GROWTH 5 DAYS Report Status FINAL 04/30/2023 [facility] Comment on above: Performed By: #### B CUL2 #### [facility] [address] [place] [address] Seismographer: Sarai Howell MD Cult,Bloodon 04-30-2023 Cult,Blood Specimen Description .BLOOD Special Requests LAC, 20ML Culture NO GROWTH 5 DAYS Report Status FINAL 04/30/2023 [facility] Comment on above: Performed By: #### B C #### [facility] [address] [place] [address] Seismographer: Sarai Howell MD Lipid Profileon 04-26-2023 Cholesterol [Mass/Vol] 171 mg/dL Normal <200 [facility] Comment on above: Result Comment: Cholesterol Guidelines: <200 Desirable 200-240 Borderline >240 Undesirable Performed By: #### L IPR #### [address] [address] Seismographer: Spencer Tapia MD Cholesterol in HDL [Mass/Vol] 30 mg/dL Low >40 [facility] Comment on above: Result Comment: HDL Guidelines: <40 Undesirable 40-59 Borderline >59 Desirable Performed By: #### L IPR #### [address] [address] Seismographer: Spencer Tapia MD Cholesterol in LDL [Mass/Vol] 112 mg/dL Normal 0-130 [facility] Comment on above: Result Comment: LDL Guidelines: <100 Desirable 100-129 Near to/above Desirable 130-159 Borderline >159 Undesirable Direct (measured) LDL and calculated LDL are not interchangeable tests. Performed By: #### L IPR #### [address] [address] Seismographer: Spencer Tapia MD Cholesterol.total/Chol esterol in HDL [Mass ratio] 5.7 {ratio} High <5 [facility] Comment on above: Performed By: #### L IPR #### [address] [address] Seismographer: Spencer Tapia MD Triglyceride [Mass/Vol] 143 mg/dL Normal <150 [facility] Comment on above: Result Comment: Triglyceride Guidelines: <150 Desirable 150-199 Borderline 200-499 High >499 Very high Based on AHA Guidelines for fasting triglyceride, June 2012. Performed By: #### L IPR #### [address] [address] Seismographer: Spencer Tapia MD Basic Metabolic Profon 04-25 Anion gap [Moles/Vol] 13 mmol/L Normal 9-17 [facility] Comment on above: Performed By: #### T JAMIE, ANJALI, BMP #### [facility] [address] [place], [place] [address] Seismographer: Sarai Howell MD BUN/CRE Ratio 14 Normal 9-20 [facility] Comment on above: Performed By: #### T ANJALI AYALA, BMP #### [facility] [address] [place], [place] [address]83 Seismographer: Sarai Howell MD Calcium [Mass/Vol] 9.3 mg/dL Normal 8.6-10.4 [facility] Comment on above: Performed By: #### T ANJALI AYALA, BMP #### [facility] [address] [place], [place] [address] Seismographer: Sarai Howell MD Chloride [Moles/Vol] 101 mmol/L Normal 98-107 [facility] Comment on above: Performed By: #### ANJALI PRADHAN, BMP #### [facility] [address] [place], [place] [address]83 Seismographer: Sarai Howell MD CO2 [Moles/Vol] 25 mmol/L Normal 20-31 [facility] Comment on above: Performed By: #### T ANJALI AYALA, BMP #### [facility] [address] [place], [place] [address] Seismographer: Sarai Howell MD Creatinine [Mass/Vol] 1.3 mg/dL High 0.7-1.2 [facility] Comment on above: Performed By: #### T ANJALI AYALA, BMP #### [facility] [address] [place] [address] Seismographer: Sarai Howell MD GFR/1.73 sq M.predicted among non-blacks MDRD (S/P/Bld) [Vol rate/Area] mL/min/{1.73_m2} Normal >60 [facility] Comment on above: Result Comment: These results [...] Performed By: #### ANJALI PRADHAN, BMP #### [facility] [address] [place], [place] [address]83 Seismographer: Sarai Howell MD Glucose [Mass/Vol] 87 mg/dL Normal 70-99 [facility] Comment on above: Performed By: #### T ANJALI AYALA, BMP #### [facility] [address] [place], [place] [address] Seismographer: Sarai Howell MD Potassium [Moles/Vol] 3.9 mmol/L Normal 3.7-5.3 [facility] Comment on above: Performed By: #### ANJALI PRADHAN, BMP #### [facility] [address] [place] [address] [place], [place] [address]83 Seismographer: Sarai Howell MD Sodium [Moles/Vol] 139 mmol/L Normal 135-144 [facility] Comment on above: Performed By: #### ANJALI PRADHAN, BMP #### [address] [place] [address] Seismographer: Sarai Howell MD Urea nitrogen [Mass/Vol] 18 mg/dL Normal 8-23 [facility] Comment on above: Performed By: #### ANJALI PRADHAN, BMP #### [facility] [address] [place], [place] 0070383 Seismographer: Sarai Howell MD CBC with Diffon 04-25-2023 Abs. Basophil 0.04 k/uL Normal 0.00-0.20 [facility] Comment on above: Performed By: #### ANJALI PRADHAN, BMP #### [facility] [address] [place] [address] Seismographer: Sarai Howell MD Abs.Imm.Granulocyte 0.04 k/uL Normal 0.00-0.30 [facility] Comment on above: Performed By: #### ANJALI PRADHAN, BMP #### [address] [place] [address] Seismographer: Sarai Howell MD Abs.Neutrophil (Seg) 5.64 k/uL Normal 1.50-8.10 [facility] Comment on above: Performed By: #### ANJALI PRADHAN, BMP #### [address] [place] [address] Seismographer: Sarai Howell MD Basophils/100 WBC (Bld) 1 % Normal 0-2 [facility] Comment on above: Performed By: #### ANJALI PRADHAN, BMP #### [address] [place] [address] Seismographer: Sarai Howell MD Eosinophils (Bld) [#/Vol] 0.09 10*3/uL Normal 0.00-0.44 [facility] Comment on above: Performed By: #### ANJALI PRADHAN, BMP #### [address] [place] [address] Seismographer: Sarai Howell MD Eosinophils/100 WBC (Bld) 1 % Normal 1-4 [facility] Comment on above: Performed By: #### ANJALI PRADHAN, BMP #### [address] [place] [address] Seismographer: Sarai Howell MD Erythrocyte distribution width (RBC) [Ratio] 15.4 % High 11.8-14.4 [facility] Comment on above: Performed By: #### ANJALI PRADHAN, BMP #### [address] [place] [address] Seismographer: Sarai Howell MD Hematocrit (Bld) [Volume fraction] 40.6 % Low 40.7-50.3 [facility] Comment on above: Performed By: #### ANJALI PRADHAN, BMP #### [facility] [address] [place], [place] 6[address]83 Seismographer: Sarai Howell MD Hemoglobin (Bld) [Mass/Vol] 13.1 g/dL Normal 13.0-17.0 [facility] Comment on above: Performed By: #### ANJALI PRADHAN, BMP #### [facility] [address] [place], [place] 0305683 Seismographer: Sarai Howell MD Immature granulocytes/100 WBC (Bld) 1 % High 0 [facility] Comment on above: Performed By: #### ANJALI PRADHAN, BMP #### [address] [place], [place] [address] Seismographer: Sarai Howell MD Lymphocytes (Bld) [#/Vol] 1.86 10*3/uL Normal 1.10-3.70 [facility] Comment on above: Performed By: #### ANJALI PRADHAN, BMP #### [address] [place], [place] [address]83 Seismographer: Sarai Howell MD Lymphocytes/100 WBC (Bld) 22 % Low 24-43 [facility] Comment on above: Performed By: #### ANJALI PRADHAN, BMP #### [facility] [address] [place], [place] [address]32683 Seismographer: Sarai Howell MD MCH (RBC) [Entitic mass] 29.0 pg Normal 25.2-33.5 [facility] Comment on above: Performed By: #### ANJALI PRADHAN, BMP #### [facility] [address] [place], [place] [address] Seismographer: Sarai Howell MD MCHC (RBC) [Mass/Vol] 32.3 g/dL Normal 28.4-34.8 [facility] Comment on above: Performed By: #### ANJALI PRADHAN, BMP #### [facility] [address] [place], [place] [address] Seismographer: Sarai Howell MD MCV (RBC) [Entitic vol] 89.8 fL Normal 82.6-102.9 [facility] Comment on above: Performed By: #### ANJALI PRADHAN, BMP #### [facility] [address] [place], [place] 4754183 Seismographer: Sarai Howell MD Monocytes (Bld) [#/Vol] 0.83 10*3/uL Normal 0.10-1.20 [facility] Comment on above: Performed By: #### ANJALI PRADHAN, BMP #### [address] [place], [place] [address]283 Seismographer: Sarai Howell MD Monocytes/100 WBC (Bld) 10 % Normal 3-12 [facility] Comment on above: Performed By: #### ANJALI PRADHAN, BMP #### [address] [place], [place] [address]383 Seismographer: Sarai Howell MD Neutrophil (Seg) 65 % Normal 36-65 [facility] Comment on above: Performed By: #### ANJALI PRADHAN, BMP #### [address] [place], [place] [address]83 Seismographer: Sarai Howell MD NRBC Automated 0.0 per 100 WBC Normal 0.0 [facility] Comment on above: Performed By: #### NAJALI PRADHAN, BMP #### [address] [place], [place] 26[address]83 Seismographer: Sarai Howell MD Platelet mean volume (Bld) [Entitic vol] 11.9 fL Normal 8.1-13.5 [facility] Comment on above: Performed By: #### T ANJALI AYALA, BMP #### [facility] [address] [place], [place] [address]658[address] Seismographer: Sarai Howell MD Platelets (Bld) [#/Vol] 254 10*3/uL Normal 138-453 [facility] Comment on above: Performed By: #### T ANJALI AYALA, BMP #### [facility] [address] [place], [place] [address]78483 Seismographer: Sarai Howell MD RBC (Bld) [#/Vol] 4.52 10*6/uL Normal 4.21-5.77 [facility] Comment on above: Performed By: #### T ANJALI AYALA, BMP #### [facility] [address] [place], [place] 380[address]83 Seismographer: Sarai Howell MD WBC (Bld) [#/Vol] 8.5 10*3/uL Normal 3.5-11.3 [facility] Comment on above: Performed By: #### ANJALI PRADHAN, BMP #### [facility] [address] [place] [address] Seismographer: Sarai Howell MD CT HEAD WO CONTRASTon [...] Babs Mae MD 04/25/23 Final result Normal [facility] Flu A/B Ag Detectionon 04-25 Flu A Ag Detection Negative Normal NEG [facility] Comment on above: Result Comment: for Influenza A Antigen Performed By: #### F LUABA #### [address] [place] [address] Seismographer: Sarai Howell MD Flu B Ag Detection Negative Normal NEG [facility] Comment on above: Result Comment: for Influenza B Antigen. Performed By: #### F LUABA #### [address] [place] [address] Seismographer: Sarai Howell MD Lactic Acidon 04-25-2023 Lactate [Moles/Vol] 1.3 mmol/L Normal 0.5-2.2 [facility] Comment on above: Performed By: #### L ACTIC #### [address] [place] [address] Seismographer: Sarai Howell MD [id number] 04-25-2023 SARS-CoV-2 (COVID-19) RNA JOSÉ MIGUEL+probe Ql (Unsp spec) Not detected Normal NOTDET [facility] Comment on above: Result Comment: Rapid NAAT: [...] management decisions. Fact sheet for Healthcare Providers: https://www.fda.gov/media/267164/download Fact sheet for Patients: https://www.fda.gov/media/313175/download Methodology: Isothermal Nucleic Acid Amplification Performed By: #### F LUABA #### [address] [place] [address] Seismographer: Sarai Howell MD Troponinon 0 Troponin, High Sens 26 ng/L High 022 [facility] Comment on above: Result Comment: High Sensitivity Troponin values cannot be compared with other Troponin methodologies. Performed By: #### F LUABA #### [address] [place] [address] Seismographer: Sarai Howell MD Troponin, High Sens 27 ng/L High 022 [facility] Comment on above: Result Comment: High Sensitivity Troponin values cannot be compared with other Troponin methodologies. Performed By: #### T JAMIE, CDP, BMP #### [facility] [address] [place] [address] [place] [id number] Seismographer: Sarai Howell MD UA w/Reflex Cultureon 2022 Bilirubin, SemiQt,Ur SMALL Abnormal NEG [facility] Comment on above: Performed By: #### F LUABA #### [address] [place] [address] Seismographer: Sarai Howell MD Blood, Urine 3+ Abnormal NEG [facility] Comment on above: Performed By: #### F LUABA #### [facility] [address] [place], [place] [address]83 Seismographer: Sarai Howell MD Clarity (U) Cloudy Abnormal CLEAR [facility] Comment on above: Performed By: #### F LUABA #### [facility] [address] [place], [place] [phone] Seismographer: Sarai Howell MD Color (U) Yellow Normal YEL [facility] Comment on above: Performed By: #### F LUABA #### [facility] [address] [place], [place] [address]83 Seismographer: Sarai Howell MD Glucose Ql (U) Negative Normal NEG [facility] Comment on above: Performed By: #### F LUABA #### [facility] [address] [place], [place] [phone] Seismographer: Sarai Howell MD Ketones Ql (U) 1+ mg/dL Abnormal NEG [facility] Comment on above: Performed By: #### F LUABA #### [facility] [address] [place] [address] [place], [place] 1994683 Seismographer: Sarai Howell MD Leukocyte esterase Test strip Ql (U) TRACE Abnormal NEG [facility] Comment on above: Performed By: #### F LUABA #### [facility] [address] [place], [place] [phone] Seismographer: Sarai Howell MD Nitrite,Ur Negative Normal NEG [facility] Comment on above: Performed By: #### F LUABA #### [facility] [address] [place], [place] 7[address]83 Seismographer: Sarai Howell MD PH,Ur 6.0 Normal 5.0-9.0 [facility] Comment on above: Performed By: #### F LUABA #### [facility] [address] [place], [place] 9[address]83 Seismographer: Sarai Howell MD Protein Ql (U) 1+ mg/dL Abnormal NEG [facility] Comment on above: Performed By: #### F LUABA #### [facility] [address] [place] [address] Seismographer: Sarai Howell MD Spec. Gregory,Ur >1.030 High 1.010-1.02 0 [facility] Comment on above: Performed By: #### F LUABA #### [facility] [address] [place], [place] [phone] Seismographer: Sarai Howell MD Urobilinogen,Ur Normal Normal 0.0-1.0 [facility] Comment on above: Performed By: #### F LUABA #### [address] [place], [place] [phone] Seismographer: Sarai Howell MD Urinalysis,Microon 3 Bacteria 1+ Abnormal NONE [facility] Comment on above: Performed By: #### F LUABA #### [facility] [address] [place] [address] [place], [place] 3884983 Seismographer: Sarai Howell MD Epithelial cells LM Ql (Urine sed) None Normal 0-5 [facility] Comment on above: Performed By: #### F LUABA #### [facility] [address] [place] [address] [place]. [place], [place] [phone] Seismographer: Sarai Howell MD Mucus Strands TRACE Abnormal NONE [facility] Comment on above: Performed By: #### F LUABA #### [facility] [address] [place] [address] [place] [address] Seismographer: Sarai Howell MD Urine RBC's 20 TO 50 Normal 0-2 [facility] Comment on above: Performed By: #### F LUABA #### [facility] [address] [place] [address] Seismographer: Sarai Howell MD Urine WBC's 2 TO 5 Normal 0-5 [facility] Comment on above: Performed By: #### F HENRY #### [facility] [address] [place] [address] Seismographer: Sarai Howell MD XR CHEST PORTABLEon 04-25-20 [...] Sarai Henson MD 04/25/23 Final result Normal [facility] BNPon 01-17-2023 Natriuretic peptide B (Bld) [Mass/Vol] 210.0 pg/mL Normal <=900.0 [facility] Comment on above: Performed By: #### B FIREARMS MODEL MAKER, CMADM, CMP ####[facility] [address] [place] [id number]. Donna Malone CARDIAC MJ ADMITon 023 CK [Catalytic activity/Vol] 67 U/L Normal 39-308 [facility] Comment on above: Performed By: #### B FIREARMS MODEL MAKER, CMADM, CMP ####[facility] [address]ub[address] [place] [address]Dr. Donna Malone CK.MB [Mass/Vol] 2.51 ng/mL Normal <=3.60 [facility] Comment on above: Performed By: #### B FIREARMS MODEL MAKER, CMADM, CMP ####[facility] [address]hszy[address] [place] [id number]. Donna Malone HSTROP 9.2 pg/mL Normal 4.0-76.1 [facility] Comment on above: Result Comment: CUT- OFF POINTS HAVE BEEN ESTABLISHED BASED ON THE FOURTH UNIVERSAL DEFINITIONS OF MYOCARDIALINFARCTION. THE UPPER REFERENCE LIMIT (URL) OF TROPONIN, DEFINED THE 99TH PERCENTILE OFcTnI DISTRIBUTION IN A REFERENCE POPULATION, HAS BEEN CONFIRMED THE DECISION THRESHOLDFOR CT DIAGNOSIS. Performed By: #### B FIREARMS MODEL MAKER, CMADM, CMP ####[facility] [address] [place] [address]Dr. Donna Malone BINDU 68 ng/mL Normal 16-96 [facility] Comment on above: Performed By: #### B FIREARMS MODEL MAKER, CMADM, CMP ####[facility] Y[address]ens[address] [place] [address]Dr. Donna Malone CBC AUTO DIFFon 01-17-2023 BASO # 0.1 103/ul Normal 0.0-0.1 [facility] Comment on above: Performed By: #### C BC ####[facility] [address] [place], [place] [address]Dr. Donna Malone Basophils/100 WBC (Bld) 0.8 % Normal 0.2-2.0 [facility] Comment on above: Performed By: #### C BC ####[facility] [address] [place], [place] [address]Dr. Donna Malone EO # 0.1 103/ul Normal 0.0-0.7 [facility] Comment on above: Performed By: #### C BC ####[facility] [address] [place], [place] [address]Dr. Donna Malone Eosinophils/100 WBC (Bld) 1.4 % Normal 0.9-7.0 [facility] Comment on above: Performed By: #### C BC ####[facility] [address] [place], [place] [address]Dr. Donna Malone Erythrocyte distribution width (RBC) [Ratio] 14.6 % Normal 11.0-15.0 [facility] Comment on above: Performed By: #### C BC ####[facility] [address]xptes[address] [place], [place] [address]Dr. Donna Malone Hematocrit (Bld) [Volume fraction] 43.9 % Normal 42.0-54.0 [facility] Comment on above: Performed By: #### C BC ####[facility] T[address]rpb14[address] [place] [address]Dr. Donna Malone Hemoglobin (Bld) [Mass/Vol] 14.2 g/dL Normal 14.0-18.0 [facility] Comment on above: Performed By: #### C BC ####[facility] Gpjdtfzghp16[address] [place] [address]Dr. Donna Malone IG # 0.04 10e3/ul Critically high 0.00-0.03 [facility] Comment on above: Performed By: #### C BC ####[facility] F[address] [place], [place] [address]Dr. Donna Malone IG % 0.4 % Normal 0.0-0.5 [facility] Comment on above: Performed By: #### C BC ####[facility] D[address] [place], [place] [address]Dr. Donna Malone LYMPH # 2.3 103/ul Normal 1.2-3.8 [facility] Comment on above: Performed By: #### C BC ####[facility] [address]kr[address] [place], [place] [address]Dr. Donna Malone Lymphocytes/100 WBC (Bld) 25.4 % Normal 20.5-60.0 [facility] Comment on above: Performed By: #### C BC ####[facility] H[address] [place], [place] [address]Dr. Donna Malone MANUAL DIFF REQ NO Normal [facility] Comment on above: Performed By: #### C BC ####[facility] [address] [place], [place] [address]Dr. Donna Malone MCH (RBC) [Entitic mass] 29.6 pg Normal 25.9-34.0 [facility] Comment on above: Performed By: #### C BC ####[facility] [address] [place], [place] [address]Dr. Donna Malone MCHC (RBC) [Mass/Vol] 32.3 g/dL Normal 29.9-35.2 [facility] Comment on above: Performed By: #### C BC ####[facility] [address]uf[address] [place] [address]Dr. Donna Malone MCV (RBC) [Entitic vol] 91.5 fL Normal 80.0-94.0 [facility] Comment on above: Performed By: #### C BC ####[facility] [address]uz[address]uz[address] [place] [address]Dr. Donna Malone MONO # 0.7 103/ul Normal 0.3-0.8 [facility] Comment on above: Performed By: #### C BC ####[facility] Cwsgydjiap2622 [place] [address]Dr. Donna Faisal Monocytes/100 WBC (Bld) 7.5 % Normal 1.7-12.0 [facility] Comment on above: Performed By: #### C BC ####[facility] [address] [place], [place] [address]Dr. Donna Malone NEUT # 5.9 103/ul Normal 1.4-6.5 [facility] Comment on above: Performed By: #### C BC ####[facility] [address] [place], [place] [address]Dr. Rubyyvan Malone Neutrophils/100 WBC (Bld) 64.5 % Normal 43.0-75.0 [facility] Comment on above: Performed By: #### C BC ####[facility] [address] [place], [place] [address]Dr. Donna Faisal Platelet mean volume (Bld) [Entitic vol] 10.6 fL Normal 9.5-13.5 [facility] Comment on above: Performed By: #### C BC ####[facility] Gr[address] [place], [place] [address]Dr. Donna Faisal PLT 296 103/ul Normal 150-450 [facility] Comment on above: Performed By: #### C BC ####[facility] K[address] [place], [place] [address]Dr. Donna Malone RBC 4.80 106/ul Normal 4.70-6.10 [facility] Comment on above: Performed By: #### C BC ####[facility] S[address]ouws[address] [place] [address]Dr. Donna Malone WBC 9.1 103/ul Normal 4.0-11.0 [facility] Comment on above: Performed By: #### C BC ####[facility] E[address]cil[address] [place] [address]Dr. Donna Malone CT CSPINE WO CONon 3 CT CSPINE WO CON Normal [facility] CT HEAD WO CONon 3 CT HEAD WO CON Normal [facility] CT LSPINE WO CONon 3 CT LSPINE WO CON Normal [facility] PROF 14(COMP METB)on 023 Albumin [Mass/Vol] 3.3 g/dL Critically low 3.4-5.0 Th e [facility] Comment on above: Performed By: #### B FIREARMS MODEL MAKER, CMADM, CMP ####[facility] Wl[address]ixdc5[address] [place] [address]Dr. Donna Malone Albumin/Globulin [Mass ratio] 0.8 {ratio} Normal [facility] Comment on above: Performed By: #### B FIREARMS MODEL MAKER, CMADM, CMP ####[facility] [address] [place] [address]Dr. Donna Malone ALP [Catalytic activity/Vol] 55 U/L Normal 46-116 [facility] Comment on above: Performed By: #### B FIREARMS MODEL MAKER, CMADM, CMP ####[facility] Oj[address]ds[address] [place] [address]Dr. Donna Malone ALT [Catalytic activity/Vol] 15 U/L Critically low 16-63 [facility] Comment on above: Performed By: #### B FIREARMS MODEL MAKER, CMADM, CMP ####[facility] V[address]weluq[address] [place] [address]Dr. Donna Malone Anion gap [Moles/Vol] 9.6 mmol/L Normal [facility] Comment on above: Performed By: #### B FIREARMS MODEL MAKER, CMADM, CMP ####[facility] Uy[address]ostw[address] [place] [address]Dr. Donna Malnoe AST [Catalytic activity/Vol] 14 U/L Critically low 15-37 [facility] Comment on above: Performed By: #### B FIREARMS MODEL MAKER, CMADM, CMP ####[facility] [address] [place] [address]Dr. Donna Malone Bilirubin [Mass/Vol] 0.2 mg/dL Normal 0.2-1.0 [facility] Comment on above: Performed By: #### B FIREARMS MODEL MAKER, CMADM, CMP ####[facility] Ksv[address]qljgd3322 [place] [address]Dr. Donna Malone Calcium [Mass/Vol] 8.6 mg/dL Normal 8.5-10.1 [facility] Comment on above: Performed By: #### B FIREARMS MODEL MAKER, CMADM, CMP ####[facility] [address] [place], [place] [address]Dr. Donna Malone Chloride [Moles/Vol] 107 mmol/L Normal 98-107 [facility] Comment on above: Performed By: #### B FIREARMS MODEL MAKER, CMADM, CMP ####[facility] [address] [place], [place] [address]Dr. Donna Malone CO2 [Moles/Vol] 25.9 mmol/L Normal 21.0-32.0 [facility] Comment on above: Performed By: #### B FIREARMS MODEL MAKER, CMADM, CMP ####[facility] E[address]ww[address]oxer[address] [place], [place] [address]Dr. Donna Malone Creatinine [Mass/Vol] 1.12 mg/dL Normal 0.70-1.30 [facility] Comment on above: Performed By: #### B FIREARMS MODEL MAKER, CMADM, CMP ####[facility] Mjpztwdenv29[address] [place] [address]Dr. Donna Malone EGFR-AF UZBEK >60 Normal >=60 [facility] Comment on above: Performed By: #### B FIREARMS MODEL MAKER, CMADM, CMP ####[facility] Ilvmccsmwo2917 [place] [address]Dr. Donna Malone EGFR-NON AF UZBEK >60 Normal >=60 [facility] Comment on above: Performed By: #### B FIREARMS MODEL MAKER, CMADM, CMP ####[facility] Ezqcnbsded1795 [place] [address]Dr. Donna Malone Globulin (S) [Mass/Vol] 4.2 g/dL Normal [facility] Comment on above: Performed By: #### B FIREARMS MODEL MAKER, CMADM, CMP ####[facility] Kwdrzszczy2696 [place] [address]Dr. Donna Malone Glucose [Mass/Vol] 163 mg/dL Critically high 74-106 [facility] Comment on above: Performed By: #### B FIREARMS MODEL MAKER, CMADM, CMP ####[facility] Pzqhigrpxk2290 [place] [address]Dr. Donna Malone Potassium [Moles/Vol] 4.5 mmol/L Normal 3.5-5.1 [facility] Comment on above: Performed By: #### B FIREARMS MODEL MAKER, CMADM, CMP ####[facility] Mgy[address]iewgq4644 [place] [address]Dr. Donna Malone Protein [Mass/Vol] 7.5 g/dL Normal 6.4-8.2 [facility] Comment on above: Performed By: #### B FIREARMS MODEL MAKER, CMADM, CMP ####[facility] Thmmqiuwgg1807 [place] [address]Dr. Donna Malone Sodium [Moles/Vol] 138 mmol/L Normal 136-145 [facility] Comment on above: Performed By: #### B FIREARMS MODEL MAKER, CMADM, CMP ####[facility] Titvurvxkc08[address] [place] [address]Dr. Donna Malone Urea nitrogen [Mass/Vol] 11.0 mg/dL Normal 7.0-18.0 [facility] Comment on above: Performed By: #### B FIREARMS MODEL MAKER, CMADM, CMP ####[facility] Kzqovrefeo9104 [place] [address]Dr. Donna Malone Urea nitrogen/Creatinine [Mass ratio] 9.8 mg/mg Normal [facility] Comment on above: Performed By: #### B FIREARMS MODEL MAKER, CMADM, CMP ####[facility] Zcbrafxhtn9999 [place] [address]Dr. Donna Malone PROTIMEon 01-17-2023 INR Coag (PPP) [Relative time] 0.94 {INR} Normal [facility] Comment on above: Performed By: #### P TT, PT ####[facility] [address]ryvpsmjw[address] [place], [place] [address]Dr. Donna Malone INR GUIDELINES SEE BELOW Normal [facility] Comment on above: Result Comment: FLORESITA RED INR: 2.0 - 3.0 CONDITIONS NOT LISTED BELOW 2.5 - 3.5 FOR PROSTHETIC HEART VALVE REPLACEMENT 2.5 - 3.5 RECURRENT THROMBOSIS Performed By: #### P TT, PT ####[facility] [address]axc[address] [place], [place] [address]Dr. Donna Malone PT Coag (PPP) [Time] 10.0 s Normal 9.0-11.6 [facility] Comment on above: Performed By: #### P TT, PT ####[facility] M[address]qzes[address] [place], [place] [address]Dr. Donna Malone PTTon 01-17-2023 aPTT Coag (Bld) [Time] 29.6 s Normal 22.3-36.2 [facility] Comment on above: Performed By: #### P TT, PT ####[facility] Alxjts[address] [place], [place] [address]DrElizabeth Malone CBC AUTO DIFFon 11-17-2022 BASO # 0.0 103/ul Normal 0.0-0.1 [facility] Comment on above: Performed By: #### C BC ####[facility] Bxokpkwscw[address] [place], [place] [address]DrElizabeth Malone Basophils/100 WBC (Bld) 0.2 % Normal 0.2-2.0 [facility] Comment on above: Performed By: #### C BC ####[facility] K[address]dlgxodu[address] [place], [place] [address]DrElizabeth Malone EO # 0.0 103/ul Normal 0.0-0.7 [facility] Comment on above: Performed By: #### C BC ####[facility] [address]wduygz[address] [place], [place] [address]DrElizabeth Malone Eosinophils/100 WBC (Bld) 0.0 % Critically low 0.9-7.0 [facility] Comment on above: Performed By: #### C BC ####[facility] Fcxmlupvem[address] [place], [place] [address]DrElizabeth Malone Erythrocyte distribution width (RBC) [Ratio] 14.5 % Normal 11.0-15.0 [facility] Comment on above: Performed By: #### C BC ####[facility] U[address]deomflj[address] [place], [place] [address]DrElizabeth Malone Hematocrit (Bld) [Volume fraction] 39.6 % Critically low 42.0-54.0 [facility] Comment on above: Performed By: #### C BC ####[facility] Rexouwnanb[address] [place], [place] [address]DrElizabeth Malone Hemoglobin (Bld) [Mass/Vol] 13.3 g/dL Critically low 14.0-18.0 [facility] Comment on above: Performed By: #### C BC ####[facility] M[address]imu[address] [place], [place] [address]Dr. Donna Malone IG # 0.06 10e3/ul Critically high 0.00-0.03 [facility] Comment on above: Performed By: #### C BC ####[facility] [address]ws[address]jpm[address] [place], [place] [address]DrElizabeth Malone IG % 0.5 % Normal 0.0-0.5 [facility] Comment on above: Performed By: #### C BC ####[facility] Kyqptlxmba[address] [place], [place] [address]DrElizabeth aMlone LYMPH # 1.0 103/ul Critically low 1.2-3.8 [facility] Comment on above: Performed By: #### C BC ####[facility] Jeficsfxxf[address] [place], [place] [address]DrElizabeth Malone Lymphocytes/100 WBC (Bld) 8.3 % Critically low 20.5-60.0 [facility] Comment on above: Performed By: #### C BC ####[facility] Oeqtcsokzc[address] [place], [place] [address]DrElizabeth Malone MANUAL DIFF REQ NO Normal [facility] Comment on above: Performed By: #### C BC ####[facility] [address]qdwvrbzz5897 [place] [address]DrElizabeth Malone MCH (RBC) [Entitic mass] 29.4 pg Normal 25.9-34.0 [facility] Comment on above: Performed By: #### C BC ####[facility] Lbnmxygvip5806 [place] [address]DrElizabeth Malone MCHC (RBC) [Mass/Vol] 33.6 g/dL Normal 29.9-35.2 [facility] Comment on above: Performed By: #### C BC ####[facility] [address]htuwf[address] [place], [place] [address]DrElizabeth Malone MCV (RBC) [Entitic vol] 87.6 fL Normal 80.0-94.0 [facility] Comment on above: Performed By: #### C BC ####[facility] A[address]vh[address] [place], [place] [address]DrElizabeth Malone MONO # 0.8 103/ul Normal 0.3-0.8 [facility] Comment on above: Performed By: #### C BC ####[facility] S[address]fs[address] [place], [place] [address]DrElizabeth Malone Monocytes/100 WBC (Bld) 6.6 % Normal 1.7-12.0 [facility] Comment on above: Performed By: #### C BC ####[facility] [address] [place], [place] [address]DrElizabeth Malone NEUT # 10.2 103/ul Critically high 1.4-6.5 [facility] Comment on above: Performed By: #### C BC ####[facility] [address]zxzzxn[address] [place], [place] [address]DrElizabeth Malone Neutrophils/100 WBC (Bld) 84.4 % Critically high 43.0-75.0 [facility] Comment on above: Performed By: #### C BC ####[facility] [address] [place], [place] [address]DrElizabeth Malone Platelet mean volume (Bld) [Entitic vol] 11.5 fL Normal 9.5-13.5 [facility] Comment on above: Performed By: #### C BC ####[facility] [address]ecpvwoddg[address] [place] [address]Dr. Donna Malone PLT 204 103/ul Normal 150-450 [facility] Comment on above: Performed By: #### C BC ####[facility] Szqva[address]ukv[address] [place] [address]Dr. Donna Malone RBC 4.52 106/ul Critically low 4.70-6.10 [facility] Comment on above: Performed By: #### C BC ####[facility] Nbqijihtsn0025 [place] [address]Dr. Donna Malone WBC 12.0 103/ul Critically high 4.0-11.0 [facility] Comment on above: Performed By: #### C BC ####[facility] Wcjjwtbufd8755 [place] [address]Dr. Rubyyvan Malone MAGNESIUMon 11-17-2022 Magnesium [Mass/Vol] 1.9 mg/dL Normal 1.8-2.4 [facility] Comment on above: Performed By: #### C MP, MG ####[facility] Lvncbsivow[address] [place] [address]Dr. Donna Faisal PROF 14(COMP METB)on 023 Albumin [Mass/Vol] 3.2 g/dL Critically low 3.4-5.0 [facility] Comment on above: Performed By: #### C MP, MG ####[facility] X[address]bst[address]d26[address] [place] [address]Dr. Donna Faisal Albumin/Globulin [Mass ratio] 1.0 {ratio} Normal [facility] Comment on above: Performed By: #### C MP, MG ####[facility] Piun[address]yvzn[address] [place] [address]Dr. Donna Malone ALP [Catalytic activity/Vol] 51 U/L Normal 46-116 [facility] Comment on above: Performed By: #### C MP, MG ####[facility] Lzyibsnzat3446 [place] [address]Dr. Donna Malone ALT [Catalytic activity/Vol] 16 U/L Normal 16-63 [facility] Comment on above: Performed By: #### C MP, MG ####[facility] Suzkzhddhs2979 [place] [address]Dr. Donna Malone Anion gap [Moles/Vol] 14.7 mmol/L Normal Th e [facility] Comment on above: Performed By: #### C MP, MG ####[facility] Sgbbndxpjp0990 [place] [address]Dr. Donna Malone AST [Catalytic activity/Vol] 24 U/L Normal 15-37 [facility] Comment on above: Performed By: #### C MP, MG ####[facility] [address] [place], [place] [address]Dr. Donna Malone Bilirubin [Mass/Vol] 0.5 mg/dL Normal 0.2-1.0 [facility] Comment on above: Performed By: #### C MP, MG ####[facility] [address] [place] [address]Dr. Donna Malone Calcium [Mass/Vol] 8.6 mg/dL Normal 8.5-10.1 [facility] Comment on above: Performed By: #### C MP, MG ####[facility] Effuhfsoye[address] [place] [address]Dr. Donna Malone Chloride [Moles/Vol] 108 mmol/L Critically high 98-107 [facility] Comment on above: Performed By: #### C MP, MG ####[facility] Ojobldgrey[address] [place] [id number]. Donna Malone CO2 [Moles/Vol] 21.6 mmol/L Normal 21.0-32.0 [facility] Comment on above: Performed By: #### C MP, MG ####[facility] Urndhgkq[address] [place], [place] [address]Dr. Donna Malone Creatinine [Mass/Vol] 0.83 mg/dL Normal 0.70-1.30 [facility] Comment on above: Performed By: #### C MP, MG ####[facility] Zcjnwtngfy40[address] [place] [id number]. Donna Malone EGFR-AF UZBEK >60 Normal >=60 [facility] Comment on above: Performed By: #### C MP, MG ####[facility] Jitcybgyyh[address] [place] [id number]. Donna Malone EGFR-NON AF UZBEK >60 Normal >=60 [facility] Comment on above: Performed By: #### C MP, MG ####[facility] Qqeebstucn8050 [place] [id number]. Donna Malone Globulin (S) [Mass/Vol] 3.2 g/dL Normal [facility] Comment on above: Performed By: #### C MP, MG ####[facility] Vdbqqscbcm4[address] [place] [address]Dr. Donna Malone Glucose [Mass/Vol] 162 mg/dL Critically high 74-106 [facility] Comment on above: Performed By: #### C MP, MG ####[facility] Xmhzviokwv[address]87 [place] [address]Dr. Donna Malone Potassium [Moles/Vol] 3.3 mmol/L Critically low 3.5-5.1 [facility] Comment on above: Performed By: #### C MP, MG ####[facility] Pzxmvtyikm29[address] [place] [id number]. Donna Malone Protein [Mass/Vol] 6.4 g/dL Normal 6.4-8.2 [facility] Comment on above: Performed By: #### C MP, MG ####[facility] Czrzrewlqt1056 [place] [address]Dr. Donna Malone Sodium [Moles/Vol] 141 mmol/L Normal 136-145 [facility] Comment on above: Performed By: #### C MP, MG ####[facility] Zewwbplije38[address] [place] [address]Dr. Donna Malone Urea nitrogen [Mass/Vol] 12.0 mg/dL Normal 7.0-18.0 [facility] Comment on above: Performed By: #### C MP, MG ####[facility] Lrpkahcsng0228 [place] [address]Dr. Donna Malone Urea nitrogen/Creatinine [Mass ratio] 14.5 mg/mg Normal [facility] Comment on above: Performed By: #### C MP, MG ####[facility] Vzjstzricr13[address] [place] [address]Dr. Donna Faisal AMMONIAon 11-16-2022 Ammonia (P) [Mass/Vol] ug/dL Critically low 11-32 [facility] Comment on above: Performed By: #### A MM ####[facility] Vbsayrryjh[address] [place], [place] [address]Dr. Donna Faisal CBC AUTO DIFFon 11-16-2022 BASO # 0.0 103/ul Normal 0.0-0.1 [facility] Comment on above: Performed By: #### C BC ####[facility] Fgbofedkdz[address] [place], [place] [address]Dr. Donna Malone Basophils/100 WBC (Bld) 0.2 % Normal 0.2-2.0 [facility] Comment on above: Performed By: #### C BC ####[facility] Hjeewrdnpe[address] [place], [place] [address]Dr. Donna Faisal EO # 0.0 103/ul Normal 0.0-0.7 [facility] Comment on above: Performed By: #### C BC ####[facility] Aysnfiepuj85[address] [place], [place] [address]Dr. Rubyyvan Malone Eosinophils/100 WBC (Bld) 0.0 % Critically low 0.9-7.0 [facility] Comment on above: Performed By: #### C BC ####[facility] Uqwvirfiqc422[address] [place], [place] [address]Dr. Donna Malone Erythrocyte distribution width (RBC) [Ratio] 14.4 % Normal 11.0-15.0 [facility] Comment on above: Performed By: #### C BC ####[facility] Ivktuhqbyv340[address] [place], [place] [address]Dr. Donna Malone Hematocrit (Bld) [Volume fraction] 38.6 % Critically low 42.0-54.0 [facility] Comment on above: Performed By: #### C BC ####[facility] Xnyszjrysc6584 [place] [address]DrElizabeth Donna Faisal Hemoglobin (Bld) [Mass/Vol] 13.1 g/dL Critically low 14.0-18.0 [facility] Comment on above: Performed By: #### C BC ####[facility] Kkadsqpymp8923 [place] [address]DrElizabeth Malone IG # 0.05 10e3/ul Critically high 0.00-0.03 [facility] Comment on above: Performed By: #### C BC ####[facility] Bxzylhfntr18[address] [place], [place] [address]DrElizabeth Malone IG % 0.5 % Normal 0.0-0.5 [facility] Comment on above: Performed By: #### C BC ####[facility] Zjamozndeb34[address] [place], [place] [address]DrElizabeth Malone LYMPH # 1.0 103/ul Critically low 1.2-3.8 [facility] Comment on above: Performed By: #### C BC ####[facility] Flveakhxpl17[address] [place], [place] [address]DrElizabeth Malone Lymphocytes/100 WBC (Bld) 10.8 % Critically low 20.5-60.0 [facility] Comment on above: Performed By: #### C BC ####[facility] Tokrcgzlax[address] [place], [place] [address]DrElizabeth Malone MANUAL DIFF REQ NO Normal [facility] Comment on above: Performed By: #### C BC ####[facility] Bgspegengs[address] [place], [place] [address]DrElizabeth Malone MCH (RBC) [Entitic mass] 29.4 pg Normal 25.9-34.0 [facility] Comment on above: Performed By: #### C BC ####[facility] Pdjnioevgb[address] [place] [address]DrElizabeth Malone MCHC (RBC) [Mass/Vol] 33.9 g/dL Normal 29.9-35.2 [facility] Comment on above: Performed By: #### C BC ####[facility] Oqtuvtzbbl4862 [place] [id number] Donna Maloen MCV (RBC) [Entitic vol] 86.7 fL Normal 80.0-94.0 [facility] Comment on above: Performed By: #### C BC ####[facility] Mrtdgimqcv0613 [place] [id number] Donna Faisal MONO # 0.4 103/ul Normal 0.3-0.8 [facility] Comment on above: Performed By: #### C BC ####[facility] Ghyhxgoclk9205 [place] [address]Dr. Rubyyvan Malone Monocytes/100 WBC (Bld) 4.4 % Normal 1.7-12.0 [facility] Comment on above: Performed By: #### C BC ####[facility] Mvtgxbycbg[address] [place], [place] [address]Dr. Donna Malone NEUT # 7.9 103/ul Critically high 1.4-6.5 [facility] Comment on above: Performed By: #### C BC ####[facility] Ckyqcnrbtd[address] [place], [place] [address]Dr. Rubyyvan Malone Neutrophils/100 WBC (Bld) 84.1 % Critically high 43.0-75.0 [facility] Comment on above: Performed By: #### C BC ####[facility] Dzjekmyrys26[address] [place], [place] [address]Dr. Donna Faisal Platelet mean volume (Bld) [Entitic vol] 11.3 fL Normal 9.5-13.5 [facility] Comment on above: Performed By: #### C BC ####[facility] Qldfzfbzus[address] [place], [place] [address]Dr. Donna Malone PLT 201 103/ul Normal 150-450 [facility] Comment on above: Performed By: #### C BC ####[facility] Obclrqjdki35[address] [place] [id number] Malone RBC 4.45 106/ul Critically low 4.70-6.10 [facility] Comment on above: Performed By: #### C BC ####[facility] Utupwrhsjm[address] [place] [address]Dr. Donna Malone WBC 9.3 103/ul Normal 4.0-11.0 [facility] Comment on above: Performed By: #### C BC ####[facility] Bhahcysfmr[address] [place], [place] [address]Dr. Donna Malone GLYCOHEMOGLOBIN A1Con 2022 ADA RECOMMENDATION SEE BELOW Normal [facility] Comment on above: Result Comment: ADA RECOMMENDED LIMIT 4.0 - 6.0 ADA THERAPEUTIC TARGET < 7.0 ACTION SUGGESTED > 7.0 Performed By: #### A 1C ####[facility] Tscnraggju[address] [place], [place] [address]Dr. Donna Malone Glucose [Mass/Vol] 128 mg/dL Normal [facility] Comment on above: Performed By: #### A 1C ####[facility] Lcvurkmthp[address] [place], [place] [address]Dr. Donna Malone HbA1c (Bld) [Mass fraction] 6.1 % Normal 4.5-6.2 [facility] Comment on above: Performed By: #### A 1C ####[facility] Pltlyqotpg[address] [place], [place] [address]Dr. Donna Malone MAGNESIUMon 11-16-2022 Magnesium [Mass/Vol] 1.8 mg/dL Normal 1.8-2.4 [facility] Comment on above: Performed By: #### C MP, MG ####[facility] Xhvoyuzgnc[address] [place], [place] [address]Dr. Donna Malone POINT OF CARE GLUCOSEon 11-07 Glucose [Mass/Vol] 170 mg/dL Critically high 74-106 [facility] Comment on above: Performed By: #### P OCGLUC ####[facility] Rnihfjemey[address] [place], [place] [address]Dr. Donna Malone Glucose [Mass/Vol] 158 mg/dL Critically high 74-106 [facility] Comment on above: Performed By: #### P OCGLUC ####[facility] Rhtoqqsxwr2720 [place] [address]Dr. Donna Malone Glucose [Mass/Vol] 176 mg/dL Critically high 74-106 [facility] Comment on above: Performed By: #### P OCGLUC ####[facility] Ryidnhkkop5508 [place] [address]Dr. Donna Malone PROF 14(COMP METB)on 023 Albumin [Mass/Vol] 3.1 g/dL Critically low 3.4-5.0 [facility] Comment on above: Performed By: #### C MP, MG ####[facility] Nhujcpiiyj9182 [place] [address]Dr. Donna Malone Albumin/Globulin [Mass ratio] 0.9 {ratio} Normal [facility] Comment on above: Performed By: #### C MP, MG ####[facility] Doqbredich1593 [place] [address]Dr. Donna Malone ALP [Catalytic activity/Vol] 52 U/L Normal 46-116 [facility] Comment on above: Performed By: #### C MP, MG ####[facility] Pvteembdcn8401 [place] [address]Dr. Donna Malone ALT [Catalytic activity/Vol] 13 U/L Critically low 16-63 [facility] Comment on above: Performed By: #### C MP, MG ####[facility] Qgsftlwbia4924 [place] [address]Dr. Donna Malone Anion gap [Moles/Vol] 15.7 mmol/L Normal [facility] Comment on above: Performed By: #### C MP, MG ####[facility] Pilwrlbwxs0738 [place] [address]Dr. Donna Malone AST [Catalytic activity/Vol] 16 U/L Normal 15-37 [facility] Comment on above: Performed By: #### C MP, MG ####[facility] Oggrilrjmg8122 [place] [address]Dr. Donna Malone Bilirubin [Mass/Vol] 0.5 mg/dL Normal 0.2-1.0 [facility] Comment on above: Performed By: #### C MP, MG ####[facility] Qhaxdjgiee3030 [place] [address]Dr. Donna Malone Calcium [Mass/Vol] 8.6 mg/dL Normal 8.5-10.1 [facility] Comment on above: Performed By: #### C MP, MG ####[facility] Qnznqdtezb7710 [place] [address]Dr. Donna Malone Chloride [Moles/Vol] 109 mmol/L Critically high 98-107 [facility] Comment on above: Performed By: #### C MP, MG ####[facility] Xjserhpsro4395 [place] [address]Dr. Donna Malone CO2 [Moles/Vol] 21.7 mmol/L Normal 21.0-32.0 [facility] Comment on above: Performed By: #### C MP, MG ####[facility] Sugyvfmwlb[address] [place], [place] [address]Dr. Donna Malone Creatinine [Mass/Vol] 0.99 mg/dL Normal 0.70-1.30 [facility] Comment on above: Performed By: #### C MP, MG ####[facility] Ktmbfynbpv[address] [place], [place] [address]Dr. Donna Malone EGFR-AF UZBEK >60 Normal >=60 [facility] Comment on above: Performed By: #### C MP, MG ####[facility] Gaqfdektjn04[address] [place] [address]Dr. Donna Malone EGFR-NON AF UZBEK >60 Normal >=60 [facility] Comment on above: Performed By: #### C MP, MG ####[facility] Xagbqxfhmz0143 [place] [address]Dr. Donna Malone Globulin (S) [Mass/Vol] 3.3 g/dL Normal [facility] Comment on above: Performed By: #### C MP, MG ####[facility] Eliidadrjt5178 [place] [address]Dr. Donna Malone Glucose [Mass/Vol] 168 mg/dL Critically high 74-106 [facility] Comment on above: Performed By: #### C MP, MG ####[facility] Vieghepezv6461 [place] [address]Dr. Donna Malone Potassium [Moles/Vol] 3.4 mmol/L Critically low 3.5-5.1 [facility] Comment on above: Performed By: #### C MP, MG ####[facility] Ivtfiyuptu[address] [place], [place] [address]Dr. Donna Malone Protein [Mass/Vol] 6.4 g/dL Normal 6.4-8.2 [facility] Comment on above: Performed By: #### C MP, MG ####[facility] Cqciovvnpk[address] [place], [place] [address]Dr. Donna Malone Sodium [Moles/Vol] 143 mmol/L Normal 136-145 [facility] Comment on above: Performed By: #### C MP, MG ####[facility] Zjrqgwscvl7[address] [place], [place] [address]Dr. Donna Malone Urea nitrogen [Mass/Vol] 9.0 mg/dL Normal 7.0-18.0 [facility] Comment on above: Performed By: #### C MP, MG ####[facility] Sneswdartr[address] [place], [place] [address]Dr. Donna Malone Urea nitrogen/Creatinine [Mass ratio] 9.1 mg/mg Normal [facility] Comment on above: Performed By: #### C MP, MG ####[facility] Ydwzhjoyqw[address] [place], [place] [address]Dr. Donna Faisal XR CHEST 2 Von 11-16-2022 XR CHEST 2 V Normal [facility] AMMONIAon 11-15-2022 Ammonia (P) [Moles/Vol] 20 umol/L Normal 11-32 [facility] Comment on above: Performed By: #### A MM ####[facility] Amwvtvyxir[address] [place], [place] [address]Dr. Donna Faisal CBC AUTO DIFFon 11-15-2022 BASO # 0.0 103/ul Normal 0.0-0.1 [facility] Comment on above: Performed By: #### C BC ####[facility] Svywhatjcd4556 [place] [id number]. Donna Malone Basophils/100 WBC (Bld) 0.5 % Normal 0.2-2.0 [facility] Comment on above: Performed By: #### C BC ####[facility] Wlbeyavkki1626 [place] [id number]. Donna Malone EO # 0.1 103/ul Normal 0.0-0.7 [facility] Comment on above: Performed By: #### C BC ####[facility] Lprllqiniw006[address] [place], [place] [address]Dr. Donna Malone Eosinophils/100 WBC (Bld) 1.4 % Normal 0.9-7.0 [facility] Comment on above: Performed By: #### C BC ####[facility] Ueyrfnknlh[address] [place], [place] [address]Dr. Donna Malone Erythrocyte distribution width (RBC) [Ratio] 14.6 % Normal 11.0-15.0 [facility] Comment on above: Performed By: #### C BC ####[facility] Deerhnerso[address] [place], [place] [address]Dr. Donna Malone Hematocrit (Bld) [Volume fraction] 36.8 % Critically low 42.0-54.0 [facility] Comment on above: Performed By: #### C BC ####[facility] Sky[address]ptqq[address] [place], [place] [address]Dr. Donna Malone Hemoglobin (Bld) [Mass/Vol] 12.1 g/dL Critically low 14.0-18.0 [facility] Comment on above: Performed By: #### C BC ####[facility] V[address]shmsw[address] [place], [place] [address]Dr. Donna Malone IG # 0.01 10e3/ul Normal 0.00-0.03 [facility] Comment on above: Performed By: #### C BC ####[facility] Xpxojrdidg[address] [place], [place] [address]Dr. Donna Malone IG % 0.2 % Normal 0.0-0.5 [facility] Comment on above: Performed By: #### C BC ####[facility] Bvsrcznlkb5703 [place] [id number]. Donna Malone LYMPH # 1.7 103/ul Normal 1.2-3.8 [facility] Comment on above: Performed By: #### C BC ####[facility] Gctcvydlst6698 [place] [id number]. Donna Malone Lymphocytes/100 WBC (Bld) 27.0 % Normal 20.5-60.0 [facility] Comment on above: Performed By: #### C BC ####[facility] Bxyhzshfwa7157 [place] [id number]. oDnna Faisal MANUAL DIFF REQ NO Normal [facility] Comment on above: Performed By: #### C BC ####[facility] Gofwqjswlf1798 [place] [id number]. Donna Faisal MCH (RBC) [Entitic mass] 29.5 pg Normal 25.9-34.0 [facility] Comment on above: Performed By: #### C BC ####[facility] Jxqzlizjzx9732 [place] [id number]. Donna Malone MCHC (RBC) [Mass/Vol] 32.9 g/dL Normal 29.9-35.2 [facility] Comment on above: Performed By: #### C BC ####[facility] Dwrdiwelda7672 [place] [id number]. Donna Malone MCV (RBC) [Entitic vol] 89.8 fL Normal 80.0-94.0 [facility] Comment on above: Performed By: #### C BC ####[facility] Qrzbojyjyn4319 [place] [id number]. Donna Malone MONO # 0.4 103/ul Normal 0.3-0.8 [facility] Comment on above: Performed By: #### C BC ####[facility] Euohcypucr80[address] [place] [id number]. Donna Faisal Monocytes/100 WBC (Bld) 6.7 % Normal 1.7-12.0 [facility] Comment on above: Performed By: #### C BC ####[facility] Nyeeujijxk2294 [place] [id number]. Donna Malone NEUT # 4.0 103/ul Normal 1.4-6.5 [facility] Comment on above: Performed By: #### C BC ####[facility] Cxanpggtsh7666 [place] [id number]. Donna Malone Neutrophils/100 WBC (Bld) 64.2 % Normal 43.0-75.0 [facility] Comment on above: Performed By: #### C BC ####[facility] Hpnabvnqok6331 [place] [id number]. Donna Malone Platelet mean volume (Bld) [Entitic vol] 11.3 fL Normal 9.5-13.5 [facility] Comment on above: Performed By: #### C BC ####[facility] Rtvgdqiwpm3412 [place] [id number]. Donna Malone PLT 169 103/ul Normal 150-450 [facility] Comment on above: Performed By: #### C BC ####[facility] Yuepjfeejd0542 [place] [id number]. Donna Malone RBC 4.10 106/ul Critically low 4.70-6.10 [facility] Comment on above: Performed By: #### C BC ####[facility] Gkhjmwswwr5601 [place] [id number]. Donna Malone WBC 6.3 103/ul Normal 4.0-11.0 [facility] Comment on above: Performed By: #### C BC ####[facility] Shultlegno[address] [place] [id number]. Donna Malone GLYCOHEMOGLOBIN A1Con 2022 ADA RECOMMENDATION SEE BELOW Normal [facility] Comment on above: Result Comment: ADA RECOMMENDED LIMIT 4.0 - 6.0 ADA THERAPEUTIC TARGET < 7.0 ACTION SUGGESTED > 7.0 Performed By: #### A 1C ####[facility] Ptdkqbhitx6341 [place] [id number]. Donna Malone Glucose [Mass/Vol] 128 mg/dL Normal [facility] Comment on above: Performed By: #### A 1C ####[facility] Qxrlpuqjsf9703 [place] [address]Dr. Donna Malone HbA1c (Bld) [Mass fraction] 6.1 % Normal 4.5-6.2 [facility] Comment on above: Performed By: #### A 1C ####[facility] Nodnmqmjnb[address]75 [place] [address]Dr. Donna Malone MAGNESIUMon 11-15-2022 Magnesium [Mass/Vol] 1.6 mg/dL Critically low 1.8-2.4 [facility] Comment on above: Performed By: #### C MP, MG ####[facility] Vfxtswztnk[address] [place], [place] [address]Dr. Donna Malone POINT OF CARE GLUCOSEon Glucose [Mass/Vol] 165 mg/dL Critically high 74-106 [facility] Comment on above: Performed By: #### P OCGLUC ####[facility] Odetrypjuk[address] [place], [place] [address]Dr. Donna Malone Glucose [Mass/Vol] 155 mg/dL Critically high 74-106 [facility] Comment on above: Performed By: #### P OCGLUC ####[facility] Vhstxzmyop[address] [place], [place] [address]Dr. Donna Malone Glucose [Mass/Vol] 111 mg/dL Critically high 74-106 [facility] Comment on above: Performed By: #### P OCGLUC ####[facility] Adlmsefuzu[address] [place], [place] [address]Dr. Donna Malone PROF 14(COMP METB)on 023 Albumin [Mass/Vol] 2.9 g/dL Critically low 3.4-5.0 [facility] Comment on above: Performed By: #### C MP, MG ####[facility] Xkkhnxjxef[address] [place], [place] [address]Dr. Donna Malone Albumin/Globulin [Mass ratio] 1.0 {ratio} Normal [facility] Comment on above: Performed By: #### C MP, MG ####[facility] Rusglbnrmu[address] [place], [place] [address]Dr. Donna Malone ALP [Catalytic activity/Vol] 38 U/L Critically low 46-116 [facility] Comment on above: Performed By: #### C MP, MG ####[facility] Vxrvjzglhy[address] [place], [place] [address]Dr. Donna Malone ALT [Catalytic activity/Vol] 13 U/L Critically low 16-63 [facility] Comment on above: Performed By: #### C MP, MG ####[facility] Sowmmmwsdw[address] [place], [place] [address]Dr. Donna Malone Anion gap [Moles/Vol] 11.8 mmol/L Normal [facility] Comment on above: Performed By: #### C MP, MG ####[facility] D[address]wvpibqkj24[address] [place], [place] [address]Dr. Donna Malone AST [Catalytic activity/Vol] 15 U/L Normal 15-37 [facility] Comment on above: Performed By: #### C MP, MG ####[facility] Yqrnuqkeij22[address] [place], [place] [address]Dr. Donna Malone Bilirubin [Mass/Vol] 0.4 mg/dL Normal 0.2-1.0 [facility] Comment on above: Performed By: #### C MP, MG ####[facility] Ropxqmbnas[address] [place], [place] [address]Dr. Donna Malone Calcium [Mass/Vol] 8.2 mg/dL Critically low 8.5-10.1 [facility] Comment on above: Performed By: #### C MP, MG ####[facility] Orjylscuyy[address] [place], [place] [address]Dr. Donna Malone Chloride [Moles/Vol] 111 mmol/L Critically high 98-107 [facility] Comment on above: Performed By: #### C MP, MG ####[facility] Ewobttfssl[address] [place], [place] [address]Dr. Donna Malone CO2 [Moles/Vol] 27.9 mmol/L Normal 21.0-32.0 [facility] Comment on above: Performed By: #### C MP, MG ####[facility] Xqdpcfrexz6068 [place] [address]Dr. Donna Malone Creatinine [Mass/Vol] 0.99 mg/dL Normal 0.70-1.30 [facility] Comment on above: Performed By: #### C MP, MG ####[facility] Oncmmxzwcb[address] [place] [address]Dr. Donna Malone EGFR-AF UZBEK >60 Normal >=60 [facility] Comment on above: Performed By: #### C MP, MG ####[facility] Owfnmlqfjv[address] [place], [place] [address]Dr. Donna Malone EGFR-NON AF UZBEK >60 Normal >=60 [facility] Comment on above: Performed By: #### C MP, MG ####[facility] Wjjdjbxaad12[address] [place], [place] [address]Dr. Donna Malone Globulin (S) [Mass/Vol] 2.9 g/dL Normal [facility] Comment on above: Performed By: #### C MP, MG ####[facility] Tbqajnweug8[address] [place], [place] [address]Dr. Donna Malone Glucose [Mass/Vol] 88 mg/dL Normal 74-106 [facility] Comment on above: Performed By: #### C MP, MG ####[facility] Vvdscdymob[address] [place], [place] [address]Dr. Donna Malone Potassium [Moles/Vol] 3.7 mmol/L Normal 3.5-5.1 [facility] Comment on above: Performed By: #### C MP, MG ####[facility] Enksmrqkoo238[address] [place], [place] [address]Dr. Donna Malone Protein [Mass/Vol] 5.8 g/dL Critically low 6.4-8.2 Th [facility] Comment on above: Performed By: #### C MP, MG ####[facility] Lexuuvcgmx259[address] [place], [place] [address]Dr. Donna Malone Sodium [Moles/Vol] 147 mmol/L Critically high 136-145 [facility] Comment on above: Performed By: #### C MP, MG ####[facility] Njftuc[address]euf[address] [place] [address]Dr. Donna Malone Urea nitrogen [Mass/Vol] 12.0 mg/dL Normal 7.0-18.0 [facility] Comment on above: Performed By: #### C MP, MG ####[facility] Qjsqdklkyf17[address] [place], [place] [address]Dr. Donna Malone Urea nitrogen/Creatinine [Mass ratio] 12.1 mg/mg Normal [facility] Comment on above: Performed By: #### C MP, MG ####[facility] Iiipzrgxpo576[address] [place], [place] [address]Dr. Donna Malone ACETONE SERUMon 11-14-2022 ACETONE Negative Normal NEGATIVE [facility] Comment on above: Performed By: #### A CETON ####[facility] Jkqhncfpmc[address] [place], [place] [address]Dr. Donna Malone AMMONIAon 11-14-2022 Ammonia (P) [Moles/Vol] 17 umol/L Normal 11-32 [facility] Comment on above: Performed By: #### A MM ####[facility] Rdwienrtvf87[address] [place], [place] [address]Dr. Donna Malone BLOOD GASES BTYon 11-14-2022 02 MODE ROOM AIR Normal [facility] Comment on above: Performed By: #### A BG ####[facility] Pzrsjjmknu[address] [place], [place] [address]Dr. Donna Malone ALLENS TEST Positive Normal [facility] Comment on above: Performed By: #### A BG ####[facility] Pgjoikixos[address] [place], [place] [address]Dr. Donna Malone Base excess Calc (Bld) [Moles/Vol] 1.1 mmol/L Normal -2.0-2.0 [facility] Comment on above: Performed By: #### A BG ####[facility] Bacgffupkb73[address] [place], [place] [address]Dr. Donna Malone BIPAP PRESSURE Normal [facility] Comment on above: Performed By: #### A BG ####[facility] Xumcgmmaiy650[address] [place], [place] [address]Dr. Donna Malone CPAP [facility] Comment on above: Performed By: #### A BG ####[facility] [address]rsomiqfhi[address] [place] [address]Dr. Donna Malone FIO2 Normal [facility] Comment on above: Performed By: #### A BG ####[facility] Mcbwaefiwu64[address] [place] [address]Dr. Donna Malone HCO3 (Bld) [Moles/Vol] 26.0 mmol/L Normal 22.0-26.0 [facility] Comment on above: Performed By: #### A BG ####[facility] Qxzmylsfvw20[address] [place], [place] [address]Dr. Donna Malone LPM [facility] Comment on above: Performed By: #### A BG ####[facility] Fstcfmgolh[address] [place], [place] [address]Dr. Donna Malone MINUTE VOLUME [facility] Comment on above: Performed By: #### A BG ####[facility] Begyafvbkf946[address] [place], [place] [address]Dr. Donna Malone Oxygen (Bld) [Partial pressure] 62.0 mm[Hg] Critically low 80.0-100.0 [facility] Comment on above: Performed By: #### A BG ####[facility] Yaftnexyvm434[address] [place], [place] [address]Dr. Donna Malone Oxygen saturation in Blood 91.9 % Critically low 95.0-100.0 [facility] Comment on above: Performed By: #### A BG ####[facility] Hlvqkfgmxo25[address] [place], [place] [address]Dr. Donna Malone PCO2 42.8 mmHg Normal 35.0-45.0 [facility] Comment on above: Performed By: #### A BG ####[facility] Gtoomzrhtu08[address] [place], [place] [address]Dr. Donna Malone PEEP [facility] Comment on above: Performed By: #### A BG ####[facility] Jhbuhxyojj244[address] [place], [place] [address]Dr. Donna Malone pH (Bld) 7.392 [pH] Normal 7.350-7.45 0 [facility] Comment on above: Performed By: #### A BG ####[facility] Yjcdlgtzop6[address] [place] [address]Dr. Donna Malone PIP [facility] Comment on above: Performed By: #### A BG ####[facility] Uvoawoncho[address] [place] [address]Dr. Donna Malone PS [facility] Comment on above: Performed By: #### A BG ####[facility] Opnfxojuxs2466 [place] [address]Dr. Donna Malone PUNCTURE SITE LR [facility] Comment on above: Performed By: #### A BG ####[facility] Lfrvbkdknh[address] [place], [place] [address]Dr. Donna Malone RATE [facility] Comment on above: Performed By: #### A BG ####[facility] Aioaolmxjx36[address] [place], [place] [address]Dr. Donna Malone VENT MODE [facility] Comment on above: Performed By: #### A BG ####[facility] Kwhawjjqvs85[address] [place], [place] [address]Dr. Donna Malone VT [facility] Comment on above: Performed By: #### A BG ####[facility] Tgsrbmtczi34[address] [place], [place] [address]Dr. Donna Malone BNPon 11-14-2022 Natriuretic peptide B (Bld) [Mass/Vol] 148.0 pg/mL Normal <=900.0 [facility] Comment on above: Performed By: #### B FIREARMS MODEL MAKER, CMP, HSTROPN ####[facility] Qw[address]othpda7706 [place] [address]Dr. Donna Malone CBC AUTO DIFFon 11-14-2022 BASO # 0.0 103/ul Normal 0.0-0.1 [facility] Comment on above: Performed By: #### C BC ####[facility] Cpzngjlpip0044[address] [place], [place] [address]Dr. Donna Malone Basophils/100 WBC (Bld) 0.5 % Normal 0.2-2.0 [facility] Comment on above: Performed By: #### C BC ####[facility] Zihcdblskk220[address] [place] [address]Dr. Donna Malone EO # 0.1 103/ul Normal 0.0-0.7 [facility] Comment on above: Performed By: #### C BC ####[facility] Pwhlgtvjfg2496 [place] [address]Dr. Rubyyvan Malone Eosinophils/100 WBC (Bld) 0.6 % Critically low 0.9-7.0 [facility] Comment on above: Performed By: #### C BC ####[facility] Asekcutiba639[address] [place], [place] [address]Dr. Rubyyvan Malone Erythrocyte distribution width (RBC) [Ratio] 14.8 % Normal 11.0-15.0 [facility] Comment on above: Performed By: #### C BC ####[facility] Uaecbnnmqq[address] [place], [place] [address]Dr. Rubyyvan Malone Hematocrit (Bld) [Volume fraction] 41.9 % Critically low 42.0-54.0 [facility] Comment on above: Performed By: #### C BC ####[facility] Wpntbavkjd149[address] [place], [place] [address]Dr. Donna Malone Hemoglobin (Bld) [Mass/Vol] 13.6 g/dL Critically low 14.0-18.0 [facility] Comment on above: Performed By: #### C BC ####[facility] Iosnmoijtr[address] [place], [place] [address]Dr. Rubyyvan Malone IG # 0.01 10e3/ul Normal 0.00-0.03 [facility] Comment on above: Performed By: #### C BC ####[facility] Ucwuxrplum[address] [place], [place] [address]Dr. Donna Malone IG % 0.1 % Normal 0.0-0.5 [facility] Comment on above: Performed By: #### C BC ####[facility] Wtzpcideja[address] [place], [place] [address]DrElizabeth Malone LYMPH # 1.7 103/ul Normal 1.2-3.8 [facility] Comment on above: Performed By: #### C BC ####[facility] Dswpodaxtv48[address] [place] [address]Dr. Donna Malone Lymphocytes/100 WBC (Bld) 21.2 % Normal 20.5-60.0 [facility] Comment on above: Performed By: #### C BC ####[facility] Jybulaxsef[address] [place] [address]Dr. Donna Malone MANUAL DIFF REQ NO Normal [facility] Comment on above: Performed By: #### C BC ####[facility] Ftexbfqsyh4840 [place] [address]Dr. Donna Malone MCH (RBC) [Entitic mass] 29.2 pg Normal 25.9-34.0 [facility] Comment on above: Performed By: #### C BC ####[facility] Ypmsthybny[address] [place], [place] [address]Dr. Donna Malone MCHC (RBC) [Mass/Vol] 32.5 g/dL Normal 29.9-35.2 [facility] Comment on above: Performed By: #### C BC ####[facility] Nbqmnoyxxy[address] [place], [place] [address]Dr. Donna Malone MCV (RBC) [Entitic vol] 90.1 fL Normal 80.0-94.0 [facility] Comment on above: Performed By: #### C BC ####[facility] Awuipvcuwm[address] [place], [place] [address]Dr. Donna Malone MONO # 0.4 103/ul Normal 0.3-0.8 [facility] Comment on above: Performed By: #### C BC ####[facility] Ddqfytvifn[address] [place], [place] [address]Dr. Donna Malone Monocytes/100 WBC (Bld) 5.5 % Normal 1.7-12.0 [facility] Comment on above: Performed By: #### C BC ####[facility] Yjvxywoxvm[address] [place], [place] [address]DrElizabeth Malone NEUT # 5.7 103/ul Normal 1.4-6.5 [facility] Comment on above: Performed By: #### C BC ####[facility] M[address]zsosm[address] [place] [address]Dr. Donna Malone Neutrophils/100 WBC (Bld) 72.1 % Normal 43.0-75.0 [facility] Comment on above: Performed By: #### C BC ####[facility] Cvyiwtlsga[address] [place] [address]Dr. Donna Faisal Platelet mean volume (Bld) [Entitic vol] 11.5 fL Normal 9.5-13.5 [facility] Comment on above: Performed By: #### C BC ####[facility] Yourraqour[address] [place] [address]Dr. Donna Faisal PLT 193 103/ul Normal 150-450 [facility] Comment on above: Performed By: #### C BC ####[facility] Cdulgwlusb0206 [place] [address]Dr. Donna Malone RBC 4.65 106/ul Critically low 4.70-6.10 [facility] Comment on above: Performed By: #### C BC ####[facility] Nueywdthfe[address] [place], [place] [address]Dr. Donna Faisal WBC 7.9 103/ul Normal 4.0-11.0 [facility] Comment on above: Performed By: #### C BC ####[facility] Paekbvgpiz[address] [place], [place] [address]Dr. Donna Faisal CT HEAD WO CONon 11-14-2022 CT HEAD WO CON Normal [facility] CULTURE BLOODon 11-14-2022 Microscopic examination of blood, culture Culture Observations: NO GROWTH AT 5 DAYS. Normal [facility] Comment on above: Performed By: #### B LDCX2 ####[facility] Akoelqofzt[address] [place], [place] [address]Dr. Donna Faisal Microscopic examination of blood, culture Culture Observations: NO GROWTH AT 5 DAYS. Normal [facility] Comment on above: Performed By: #### B LDCX1 ####[facility] Qvaohvsjcx399[address] [place], [place] [address]DrElizabeth Donna Malone Covid-19 PCR (CVDTB)on SARS-CoV-2 (COVID-19) RNA JOSÉ MIGUEL+probe Ql (Unsp spec) Not detected Normal NOT DETECTED [facility] Comment on above: Result Comment: When [...] for this test is supported by the [employer] and Human Service's declaration that [...] be used). Performed By: #### C VDTBH ####[facility] [address] [place] [id number]. Donna Malone DRUG SCREEN RAPID (URINE)on 11-14-2022 AMP Negative Normal NEGATIVE [facility] Comment on above: Performed By: #### D SHARONA, ERUR ####[facility] Oxw[address]ayega[address] [place] [address]Dr. Donna Malone BAR Negative Normal NEGATIVE [facility] Comment on above: Performed By: #### D SHARONA, ERUR ####[facility] Kycudyovrg[address] [place] [address]Dr. yvan Malone BUP Negative Normal NEGATIVE [facility] Comment on above: Performed By: #### D SHARONA ERUR ####[facility] Xunykmsfqk8[address] [place] [id number]. Donna Malone BZO Negative Normal NEGATIVE [facility] Comment on above: Performed By: #### D SHARONA ERUR ####[facility] Oxjpjgkjks[address] [place], [place] [address]Dr. Donna Malone EVONNE Negative Normal NEGATIVE [facility] Comment on above: Performed By: #### Calvin TABOR ERUR ####[facility] Kjuldfbwzw[address] [place], [place] [address]Dr. Donna Malone CUT-OFFS SEE BELOW Normal [facility] Comment on above: Result Comment: AMP [...] ng/mL Performed By: #### Calvin TABOR ERUR ####[facility] Tqrfdesuas[address] [place], [place] [address]Dr. Donna Malone DRUG CUT HEADER DRUG CLASS TEST SYST EM CUT-OFF CONCENTRATIONS ARE FOLLOWS: Normal [facility] Comment on above: Performed By: #### WESLY LAUR ####[facility] Iaktonpizb950[address] [place], [place] [address]Dr. Donna Malone mAMP Negative Normal NEGATIVE [facility] Comment on above: Performed By: #### Calvin TABOR ERUR ####[facility] Oavtactpxu[address] [place], [place] [address]Dr. Donna Malone MTD Negative Normal NEGATIVE [facility] Comment on above: Performed By: #### Calvin TABOR ERUR ####[facility] Zghwlbmqav[address] [place], [place] [address]Dr. Donna Malone OPI Negative Normal NEGATIVE [facility] Comment on above: Performed By: #### WESLY LAUR ####[facility] Dhlwhkmzsd[address] [place], [place] [address]Dr. Donna Malone OXY Negative Normal NEGATIVE [facility] Comment on above: Performed By: #### Calvin TABOR, ERUR ####[facility] Eynnstitha[address] [place] [address]Dr. Donna Malone PCP Negative Normal NEGATIVE [facility] Comment on above: Performed By: #### Calvin TABOR, ERUR ####[facility] Vpkwkcgrjf2145 [place] [address]Dr. Donna Malone PPX Negative Normal NEGATIVE [facility] Comment on above: Performed By: #### Calvin TABOR, ERUR ####[facility] Ljjagerdnm4172 [place] [address]Dr. Donna Malone TCA Positive Abnormal NEGATIVE [facility] Comment on above: Performed By: #### Calvin TABOR, ERUR ####[facility] Jflfspsifp1104 [place] [address]Dr. Donna Malone THC Negative Normal NEGATIVE [facility] Comment on above: Performed By: #### Calvin TABOR, ERUR ####[facility] Cpptunzstc[address] [place], [place] [address]Dr. Donna Malone ER URINE PROFILEon 3 Bilirubin Ql (U) MODERATE Abnormal NEGATIVE [facility] Comment on above: Performed By: #### Calvin TABOR, ERUR ####[facility] Liyovlkeux[address] [place], [place] [address]Dr. Donna Malone Clarity (U) CLEAR Normal CLEAR [facility] Comment on above: Performed By: #### Calvin TABOR, ERUR ####[facility] Iebdarobit[address] [place] [address]Dr. Donna Malone Color (U) DK. YELLOW Normal YELLOW [facility] Comment on above: Performed By: #### Calvin TABOR, ERUR ####[facility] Wdzphsuegz0341 [place] [address]Dr. Donna Malone ERUAHD A micrscopic examina tion will be performed if indicated. Normal [facility] Comment on above: Performed By: #### Calvin TABOR, ERUR ####[facility] Vhyumtimve[address] [place] [address]Dr. Donna Faisal Glucose Ql (U) Negative Normal NEGATIVE [facility] Comment on above: Performed By: #### Calvin TABOR, ERUR ####[facility] Coptkzhwgh[address] [place], [place] [address]Dr. Donna Faisal Hemoglobin Ql (U) Negative Normal NEGATIVE [facility] Comment on above: Performed By: #### Calvin TABOR, ERUR ####[facility] Ulkldpoxem[address] [place], [place] [address]Dr. Donna Malone Ketones Ql (U) 40 mg/dl Abnormal NEGATIVE [facility] Comment on above: Performed By: #### Calvin TABOR, ERUR ####[facility] Ikjmcgiloe[address] [place], [place] [address]Dr. Donna Malone LEUKOCYTES Negative Normal NEGATIVE [facility] Comment on above: Performed By: #### Calvin TABOR, ERUR ####[facility] Fuuuydwqov928[address] [place], [place] [address]Dr. Donna Faisal Nitrite Ql (U) Negative Normal NEGATIVE [facility] Comment on above: Performed By: #### Calvin TABOR ERUR ####[facility] Htkjpipshl7[address] [place], [place] [address]Dr. Donna Malone pH (U) 6.0 [pH] Normal 5-9 [facility] Comment on above: Performed By: #### Calvin TABOR, ERUR ####[facility] Wfrotzzkcf69[address] [place], [place] [address]Dr. Donna Malone SPEC GRAVITY 1.030 Abnormal 1.005-<=1. 025 [facility] Comment on above: Performed By: #### Calvin TABOR ERUR ####[facility] Nfzhuwabkb[address] [place], [place] [address]Dr. Donna Malone UA PROTEIN TRACE Normal NEGATIVE/ TRACE [facility] Comment on above: Performed By: #### Calvin TABOR, ERUR ####[facility] Icpsxrkyel8[address] [place], [place] [address]Dr. Donna Malone UR MICRO IND NOT INDICATED Normal [facility] Comment on above: Performed By: #### D SHARONA, ERUR ####[facility] Rnirqjdzcp2685 [place] [address]Dr. Donna Malone Urobilinogen Qn (U) 1.0 {Jermain'U}/dL Normal 0.2 - 1. 0 [facility] Comment on above: Performed By: #### D SHARONA, ERUR ####[facility] Llcpubbswl[address] [place] [address]Dr. Donna Malone LACTATE/LACTIC ACIDon 2022 Lactate [Moles/Vol] 1.6 mmol/L Normal 0.4-1.9 [facility] Comment on above: Performed By: #### L ACT ####[facility] Udqmpjqzce[address] [place], [place] [address]Dr. Donna Malone PROF 14(COMP METB)on 023 Albumin [Mass/Vol] 3.4 g/dL Normal 3.4-5.0 [facility] Comment on above: Performed By: #### B FIREARMS MODEL MAKER, CMP, HSTROPN ####[facility] Qlnzimgqpu[address] [place], [place] [address]Dr. Donna Malone Albumin/Globulin [Mass ratio] 1.0 {ratio} Normal [facility] Comment on above: Performed By: #### B FIREARMS MODEL MAKER, CMP, HSTROPN ####[facility] Qzlbhfailf2180 [place] [address]Dr. Donna Malone ALP [Catalytic activity/Vol] 48 U/L Normal 46-116 [facility] Comment on above: Performed By: #### B FIREARMS MODEL MAKER, CMP, HSTROPN ####[facility] Gtjrkvaufq[address] [place] [address]Dr. Donna Malone ALT [Catalytic activity/Vol] 13 U/L Critically low 16-63 [facility] Comment on above: Performed By: #### B FIREARMS MODEL MAKER, CMP, HSTROPN ####[facility] Qqsyivyrvx0979 [place] [address]Dr. Donna Malone Anion gap [Moles/Vol] 13.2 mmol/L Normal [facility] Comment on above: Performed By: #### B FIREARMS MODEL MAKER, CMP, HSTROPN ####[facility] Ikpneiirye[address] [place] [address]Dr. Donna Malone AST [Catalytic activity/Vol] 13 U/L Critically low 15-37 [facility] Comment on above: Performed By: #### B FIREARMS MODEL MAKER, CMP, HSTROPN ####[facility] Xtiswokhnl[address] [place] [address]Dr. Donna Malone Bilirubin [Mass/Vol] 0.4 mg/dL Normal 0.2-1.0 [facility] Comment on above: Performed By: #### B FIREARMS MODEL MAKER, CMP, HSTROPN ####[facility] Bdtgfdkisg5639 [place] [address]Dr. Donna Malone Calcium [Mass/Vol] 9.2 mg/dL Normal 8.5-10.1 [facility] Comment on above: Performed By: #### B FIREARMS MODEL MAKER, CMP, HSTROPN ####[facility] Efyrnbkoui[address] [place] [address]Dr. Donna Malone Chloride [Moles/Vol] 108 mmol/L Critically high 98-107 [facility] Comment on above: Performed By: #### B FIREARMS MODEL MAKER, CMP, HSTROPN ####[facility] Ogkwfsrmzd[address] [place] [address]Dr. Donna Malone CO2 [Moles/Vol] 27.0 mmol/L Normal 21.0-32.0 [facility] Comment on above: Performed By: #### B FIREARMS MODEL MAKER, CMP, HSTROPN ####[facility] Lvzatoswkt3531 [place] [address]Dr. Donna Malone Creatinine [Mass/Vol] 1.14 mg/dL Normal 0.70-1.30 [facility] Comment on above: Performed By: #### B FIREARMS MODEL MAKER, CMP, HSTROPN ####[facility] [address]ahz[address] [place] [address]Dr. Donna Malone EGFR-AF UZBEK >60 Normal >=60 [facility] Comment on above: Performed By: #### B FIREARMS MODEL MAKER, CMP, HSTROPN ####[facility] Bgitermbgj6806 [place] [address]Dr. Donna Malone EGFR-NON AF UZBEK >60 Normal >=60 [facility] Comment on above: Performed By: #### B FIREARMS MODEL MAKER, CMP, HSTROPN ####[facility] Jkflreivni6571 [place] [address]Dr. Donna Malone Globulin (S) [Mass/Vol] 3.5 g/dL Normal [facility] Comment on above: Performed By: #### B FIREARMS MODEL MAKER, CMP, HSTROPN ####[facility] Hfvpjffvnp9641 [place] [address]Dr. Donna Malone Glucose [Mass/Vol] 126 mg/dL Critically high 74-106 [facility] Comment on above: Performed By: #### B FIREARMS MODEL MAKER, CMP, HSTROPN ####[facility] Iqigsingko[address]15 [place] [address]Dr. Donna Malone Potassium [Moles/Vol] 4.2 mmol/L Normal 3.5-5.1 [facility] Comment on above: Performed By: #### B FIREARMS MODEL MAKER, CMP, HSTROPN ####[facility] Xaqwhzmvsv2994 [place] [address]Dr. Donna Malone Protein [Mass/Vol] 6.9 g/dL Normal 6.4-8.2 [facility] Comment on above: Performed By: #### B FIREARMS MODEL MAKER, CMP, HSTROPN ####[facility] Wsrhvntqkj08[address] [place] [address]Dr. Donna Malone Sodium [Moles/Vol] 144 mmol/L Normal 136-145 [facility] Comment on above: Performed By: #### B FIREARMS MODEL MAKER, CMP, HSTROPN ####[facility] Edlmyhnjir[address] [place], [place] [address]Dr. Donna Malone Urea nitrogen [Mass/Vol] 17.0 mg/dL Normal 7.0-18.0 [facility] Comment on above: Performed By: #### B FIREARMS MODEL MAKER, CMP, HSTROPN ####[facility] [address] [place] [address]Dr. Donna Malone Urea nitrogen/Creatinine [Mass ratio] 14.9 mg/mg Normal [facility] Comment on above: Performed By: #### B FIREARMS MODEL MAKER, CMP, HSTROPN ####[facility] [address] [place], [place] [address]Gi. Donna Malone TROPONIN, HIGH SENSITIVITYon 11-14-2022 HSTROP 11.2 pg/mL Normal 4.0-76.1 [facility] Comment on above: Result Comment: CUT- OFF POINTS HAVE BEEN ESTABLISHED BASED ON THE FOURTH UNIVERSAL DEFINITIONS OF MYOCARDIALINFARCTION. THE UPPER REFERENCE LIMIT (URL) OF TROPONIN, DEFINED THE 99TH PERCENTILE OFcTnI DISTRIBUTION IN A REFERENCE POPULATION, HAS BEEN CONFIRMED THE DECISION THRESHOLDFOR CT DIAGNOSIS. Performed By: #### B FIREARMS MODEL MAKER, CMP, HSTROPN ####[facility] Fr[address]es[address] [place], [place] [address]Bu. Donna Malone XR CHEST 1 Von 11-14-2022 XR CHEST 1 V Normal [facility] XR lumbar spine AP/LAT/FLX/E XTon 11-01-2022 XR lumbar spine AP/LAT/FLX/EXT [facility] Main [place] [address] [place] [address] XRay Report Signed Patient: Taylor Mcclellan MR#: [id number] : 1955 Acct:[id number] Age/Sex: 67 / M ADM Date: 11/01/22 Loc: XD Room: Type: [facility] Attending Dr: Benson Lane MD Copies [...] Mj Rodriguez M.D.11/01/2022 3:07 PM Dictation Location: [place] [address] Transcribed By: JUANITA 11/01/22 1507 Dictated By: Mj Rodriguez II, MD 11/01/22 1505 Signed By: 11/01/22 1507 Normal [facility] ER URINE PROFILEon 3 Bilirubin Ql (U) Negative Normal NEGATIVE [facility] Comment on above: Performed By: #### E RUR ####[facility] X[address] [place], [place] [address]Dr. Donna Malone Clarity (U) CLEAR Normal CLEAR [facility] Comment on above: Performed By: #### E RUR ####[facility] [address] [place], [place] [address]Dr. Donna Malone Color (U) YELLOW Normal YELLOW [facility] Comment on above: Performed By: #### E RUR ####[facility] Hmg[address] [place], [place] [address]Dr. Donna Malone ERUAHD A micrscopic examina tion will be performed if indicated. Normal [facility] Comment on above: Performed By: #### E RUR ####[facility] Yqflrltlcy[address] [place], [place] [address]Dr. Donna Malone Glucose Ql (U) 250 mg/dl Abnormal NEGATIVE [facility] Comment on above: Performed By: #### E RUR ####[facility] Agmzeicmra[address] [place], [place] [address]Dr. Donna Malone Hemoglobin Ql (U) TRACE-INTACT Abnormal NEGATIVE [facility] Comment on above: Performed By: #### E RUR ####[facility] Awdr[address]dlf[address] [place] [address]Dr. Rubyyvan Malone Ketones Ql (U) Negative Normal NEGATIVE [facility] Comment on above: Performed By: #### E RUR ####[facility] Lrfswdtpia[address] [place] [address]Dr. Donna Malone LEUKOCYTES Negative Normal NEGATIVE [facility] Comment on above: Performed By: #### E RUR ####[facility] Jyfqdhusna[address] [place], [place] [address]Dr. Rubyyvan Faisal Nitrite Ql (U) Negative Normal NEGATIVE [facility] Comment on above: Performed By: #### E RUR ####[facility] Emhszdvvcd[address] [place], [place] [address]Dr. Donna Malone pH (U) 5.5 [pH] Normal 5-9 [facility] Comment on above: Performed By: #### E RUR ####[facility] Hnuyxwcvkq[address] [place], [place] [address]Dr. Donna Malone SPEC GRAVITY 1.025 Normal 1.005-<=1. 025 [facility] Comment on above: Performed By: #### E RUR ####[facility] Qnerrzqlfh[address] [place], [place] [address]Dr. Donna Malone UA PROTEIN Negative Normal NEGATIVE/ TRACE [facility] Comment on above: Performed By: #### E RUR ####[facility] Wenbhewvhx[address] [place], [place] [address]Dr. Donna Malone UR MICRO IND NOT INDICATED Normal [facility] Comment on above: Performed By: #### E RUR ####[facility] Ywnrkebxdd[address] [place], [place] [address]Dr. Donna Malone Urobilinogen Qn (U) 0.2 {Jermain'U}/dL Normal 0.2 - 1. 0 [facility] Comment on above: Performed By: #### E RUR ####[facility] Nqvczbymaf[address] [place], [place] [address]Dr. Donna Malone CBC AUTO DIFFon 10-26-2022 BASO # 0.0 103/ul Normal 0.0-0.1 [facility] Comment on above: Performed By: #### C BC ####[facility] Jtdttgxfud[address] [place], [place] [address]Dr. Donna Malone Basophils/100 WBC (Bld) 0.4 % Normal 0.2-2.0 [facility] Comment on above: Performed By: #### C BC ####[facility] Sstsxlhexo[address] [place], [place] [address]Dr. Donna Malone EO # 0.0 103/ul Normal 0.0-0.7 [facility] Comment on above: Performed By: #### C BC ####[facility] Tkvbpdrlgf[address] [place], [place] [address]Dr. Donna Malone Eosinophils/100 WBC (Bld) 0.0 % Critically low 0.9-7.0 [facility] Comment on above: Performed By: #### C BC ####[facility] Keacidjsnp[address] [place], [place] [address]Dr. Donna Malone Erythrocyte distribution width (RBC) [Ratio] 14.5 % Normal 11.0-15.0 [facility] Comment on above: Performed By: #### C BC ####[facility] Bbvfvhfboa[address] [place], [place] [address]Dr. Donna Malone Hematocrit (Bld) [Volume fraction] 41.2 % Critically low 42.0-54.0 [facility] Comment on above: Performed By: #### C BC ####[facility] R[address]wdgjznc[address] [place], [place] [address]Dr. Donna Malone Hemoglobin (Bld) [Mass/Vol] 13.7 g/dL Critically low 14.0-18.0 [facility] Comment on above: Performed By: #### C BC ####[facility] Sxobhltvug74[address] [place], [place] [address]Dr. Donna Malone IG # 0.02 10e3/ul Normal 0.00-0.03 [facility] Comment on above: Performed By: #### C BC ####[facility] [address] [place] [address]Dr. Donna Malone IG % 0.2 % Normal 0.0-0.5 [facility] Comment on above: Performed By: #### C BC ####[facility] Kswegqihen[address] [place], [place] [address]Dr. Donna Malone LYMPH # 1.2 103/ul Normal 1.2-3.8 [facility] Comment on above: Performed By: #### C BC ####[facility] Rygrhzqwyn[address] [place], [place] [address]Dr. Donna Malone Lymphocytes/100 WBC (Bld) 14.4 % Critically low 20.5-60.0 [facility] Comment on above: Performed By: #### C BC ####[facility] Snrmkzofbi46[address] [place], [place] [address]DrElizabeth Malone MANUAL DIFF REQ NO Normal [facility] Comment on above: Performed By: #### C BC ####[facility] Wjrxwq[address] [place], [place] [address]Dr. Donna Faisal MCH (RBC) [Entitic mass] 29.4 pg Normal 25.9-34.0 [facility] Comment on above: Performed By: #### C BC ####[facility] Tclmfvpdtk[address] [place], [place] [address]Dr. Donna Faisal MCHC (RBC) [Mass/Vol] 33.3 g/dL Normal 29.9-35.2 [facility] Comment on above: Performed By: #### C BC ####[facility] Vxicamitqd[address] [place], [place] [address]DrElizabeth Malone MCV (RBC) [Entitic vol] 88.4 fL Normal 80.0-94.0 [facility] Comment on above: Performed By: #### C BC ####[facility] Fvpuumruzt[address] [place], [place] [address]DrElizabeth Malone MONO # 0.2 103/ul Critically low 0.3-0.8 [facility] Comment on above: Performed By: #### C BC ####[facility] Lxexrgpint26[address] [place], [place] [address]Dr. Donna Malone Monocytes/100 WBC (Bld) 2.5 % Normal 1.7-12.0 [facility] Comment on above: Performed By: #### C BC ####[facility] [address] [place] [address]Dr. Donna Malone NEUT # 6.9 103/ul Critically high 1.4-6.5 [facility] Comment on above: Performed By: #### C BC ####[facility] F[address]xwsritv[address] [place] [address]Dr. Donna Malone Neutrophils/100 WBC (Bld) 82.5 % Critically high 43.0-75.0 [facility] Comment on above: Performed By: #### C BC ####[facility] Nqykbt[address] [place], [place] [address]Dr. Donna Malone Platelet mean volume (Bld) [Entitic vol] 11.3 fL Normal 9.5-13.5 [facility] Comment on above: Performed By: #### C BC ####[facility] Ayfzsz[address] [place], [place] [address]Dr. Donna Malone PLT 241 103/ul Normal 150-450 [facility] Comment on above: Performed By: #### C BC ####[facility] Mpqeumeagm[address] [place], [place] [address]Dr. Donna Malone RBC 4.66 106/ul Critically low 4.70-6.10 [facility] Comment on above: Performed By: #### C BC ####[facility] Btppwsapzq[address] [place], [place] [address]Dr. Donna Malone WBC 8.4 103/ul Normal 4.0-11.0 [facility] Comment on above: Performed By: #### C BC ####[facility] B[address]jfflpr[address] [place], [place] [address]Dr. Donna Malone CRPon 10-26-2022 CRP [Mass/Vol] mg/L Normal <=1.0 [facility] Comment on above: Performed By: #### C RP, BMP ####[facility] Lddemikgdd[address] [place], [place] [address]Dr. Donna Malone CT LSPINE WO CONon 3 CT LSPINE WO CON Normal [facility] PROF CHEM 8 (BAS METB)on Anion gap [Moles/Vol] 11.9 mmol/L Normal Th [facility] Comment on above: Performed By: #### C RP, BMP ####[facility] [address] [place] [address]Dr. Rubyyvan Malone Calcium [Mass/Vol] 9.1 mg/dL Normal 8.5-10.1 [facility] Comment on above: Performed By: #### C RP, BMP ####[facility] Ub[address]dfmy[address] [place] [address]Dr. Donna Malone Chloride [Moles/Vol] 104 mmol/L Normal 98-107 [facility] Comment on above: Performed By: #### C RP, BMP ####[facility] [address]ffa[address]crny[address] [place] [address]Dr. Rubyyvan Malone CO2 [Moles/Vol] 26.3 mmol/L Normal 21.0-32.0 [facility] Comment on above: Performed By: #### C RP, BMP ####[facility] [address] [place] [address]Dr. Rubyyvan Faisal Creatinine [Mass/Vol] 0.99 mg/dL Normal 0.70-1.30 [facility] Comment on above: Performed By: #### C RP, BMP ####[facility] Ekfsudxyxb[address] [place] [address]Dr. Rubyyvan Faisal EGFR-AF UZBEK >60 Normal >=60 [facility] Comment on above: Performed By: #### C RP, BMP ####[facility] Vtf[address]wkemk[address] [place] [address]Dr. Donna Malone EGFR-NON AF UZBEK >60 Normal >=60 [facility] Comment on above: Performed By: #### C RP, BMP ####[facility] [address]wzffae[address] [place] [address]Dr. Donna Malone Glucose [Mass/Vol] 152 mg/dL Critically high 74-106 [facility] Comment on above: Performed By: #### C RP, BMP ####[facility] Ppqpnggmsj5275 [place] [address]Dr. Donna Malone Potassium [Moles/Vol] 4.2 mmol/L Normal 3.5-5.1 [facility] Comment on above: Performed By: #### C RP, BMP ####[facility] Z[address]cfxvlzv[address] [place], [place] [address]Dr. Donna Malone Sodium [Moles/Vol] 138 mmol/L Normal 136-145 [facility] Comment on above: Performed By: #### C RP, BMP ####[facility] Bdsjioweix[address] [place], [place] [address]Dr. Donna Faisal Urea nitrogen [Mass/Vol] 12.0 mg/dL Normal 7.0-18.0 [facility] Comment on above: Performed By: #### C RP, BMP ####[facility] Qbxonjcyng[address] [place], [place] [address]Dr. Donan Faisal Urea nitrogen/Creatinine [Mass ratio] 12.1 mg/mg Normal [facility] Comment on above: Performed By: #### C RP, BMP ####[facility] Sqsetnsxij3[address] [place], [place] [address]Dr. Donna Faisal [facility] 57 mm/hr Critically high <=20 [facility] Comment on above: Performed By: #### S EDR ####[facility] R[address]lfjw[address] [place], [place] [address]Dr. Donna Faisal CBC AUTO DIFFon 10-25-2022 BASO # 0.0 103/ul Normal 0.0-0.1 [facility] Comment on above: Performed By: #### C BC ####[facility] Critqfuulm[address] [place], [place] [address]Dr. Donna Faisal Basophils/100 WBC (Bld) 0.4 % Normal 0.2-2.0 [facility] Comment on above: Performed By: #### C BC ####[facility] Huavpaqqso211[address] [place], [place] [address]Dr. Yiyvan Malone EO # 0.0 103/ul Normal 0.0-0.7 [facility] Comment on above: Performed By: #### C BC ####[facility] Wdxjmlvljb[address] [place], [place] [address]Dr. Donna Faisal Eosinophils/100 WBC (Bld) 0.0 % Critically low 0.9-7.0 [facility] Comment on above: Performed By: #### C BC ####[facility] Fjnznygtgt[address] [place], [place] [address]Dr. Donna Malone Erythrocyte distribution width (RBC) [Ratio] 14.5 % Normal 11.0-15.0 [facility] Comment on above: Performed By: #### C BC ####[facility] Vanevxhmup7[address] [place], [place] [address]Dr. Rubyyvan Malone Hematocrit (Bld) [Volume fraction] 43.8 % Normal 42.0-54.0 [facility] Comment on above: Performed By: #### C BC ####[facility] K[address]dsuulhnu[address] [place], [place] [address]Dr. Donna Malone Hemoglobin (Bld) [Mass/Vol] 14.2 g/dL Normal 14.0-18.0 [facility] Comment on above: Performed By: #### C BC ####[facility] Iccnngozfu96[address] [place], [place] [address]Dr. Rubyyvan Faisal IG # 0.01 10e3/ul Normal 0.00-0.03 [facility] Comment on above: Performed By: #### C BC ####[facility] Pluudwfptq[address] [place], [place] [address]Dr. Donna Malone IG % 0.1 % Normal 0.0-0.5 [facility] Comment on above: Performed By: #### C BC ####[facility] Ihgxrjdkci[address] [place], [place] [address]Dr. Donna Malone LYMPH # 1.4 103/ul Normal 1.2-3.8 [facility] Comment on above: Performed By: #### C BC ####[facility] Grkhymsrkv[address] [place], [place] [address]DrElizabeth Malone Lymphocytes/100 WBC (Bld) 17.1 % Critically low 20.5-60.0 [facility] Comment on above: Performed By: #### C BC ####[facility] Zw[address]dsx[address] [place] [address]DrElizabeth Malone MANUAL DIFF REQ NO Normal [facility] Comment on above: Performed By: #### C BC ####[facility] Epwynmoqzb27[address] [place] [address]DrElizabeth Malone MCH (RBC) [Entitic mass] 29.1 pg Normal 25.9-34.0 [facility] Comment on above: Performed By: #### C BC ####[facility] Joihmiwlbp[address] [place], [place] [address]DrElizabeth Malone MCHC (RBC) [Mass/Vol] 32.4 g/dL Normal 29.9-35.2 [facility] Comment on above: Performed By: #### C BC ####[facility] Rrdvsnjfgq[address] [place], [place] [address]DrElizabeth Malone MCV (RBC) [Entitic vol] 89.8 fL Normal 80.0-94.0 [facility] Comment on above: Performed By: #### C BC ####[facility] Jnvuhyrkep[address] [place], [place] [address]DrElizabeth Malone MONO # 0.3 103/ul Normal 0.3-0.8 [facility] Comment on above: Performed By: #### C BC ####[facility] Nlqxtdeupw[address] [place], [place] [address]DrElizabeth Malone Monocytes/100 WBC (Bld) 4.1 % Normal 1.7-12.0 [facility] Comment on above: Performed By: #### C BC ####[facility] Gljhdenaju[address] [place], [place] [address]DrElizabeth Malone NEUT # 6.3 103/ul Normal 1.4-6.5 [facility] Comment on above: Performed By: #### C BC ####[facility] Huaawupcua[address] [place], [place] [address]DrElizabeth Malone Neutrophils/100 WBC (Bld) 78.3 % Critically high 43.0-75.0 [facility] Comment on above: Performed By: #### C BC ####[facility] Wqwpiwcqpm[address] [place], [place] [address]Dr. Donna Malone Platelet mean volume (Bld) [Entitic vol] 11.3 fL Normal 9.5-13.5 [facility] Comment on above: Performed By: #### C BC ####[facility] Qdivmrvygd[address] [place], [place] [address]Dr. Donna Malone PLT 271 103/ul Normal 150-450 [facility] Comment on above: Performed By: #### C BC ####[facility] Kos[address]zavtb[address] [place], [place] [address]Dr. Donna Malone RBC 4.88 106/ul Normal 4.70-6.10 [facility] Comment on above: Performed By: #### C BC ####[facility] Xaaeforfll[address] [place], [place] [address]Dr. Donna Faisal WBC 8.0 103/ul Normal 4.0-11.0 [facility] Comment on above: Performed By: #### C BC ####[facility] Qfivdglkjw[address] [place], [place] [address]Dr. Donna Faisal ER URINE PROFILEon 3 Bilirubin Ql (U) Negative Normal NEGATIVE [facility] Comment on above: Performed By: #### E RUR ####[facility] Dctxvygjwh[address] [place], [place] [address]Dr. Donna Malone Clarity (U) CLEAR Normal CLEAR [facility] Comment on above: Performed By: #### E RUR ####[facility] Usaffzdwvk[address] [place], [place] [address]Dr. Donna Malone Color (U) YELLOW Normal YELLOW [facility] Comment on above: Performed By: #### E RUR ####[facility] Ruvcrnolps[address] [place], [place] [address]Dr. Donna Malone ERUAHD A micrscopic examina tion will be performed if indicated. Normal [facility] Comment on above: Performed By: #### E RUR ####[facility] [address]mjgevjeiu[address] [place] [address]Dr. Donna Malone Glucose Ql (U) 100 mg/dl Abnormal NEGATIVE [facility] Comment on above: Performed By: #### E RUR ####[facility] Wixaryuxca[address] [place] [address]Dr. Donna Malone Hemoglobin Ql (U) Negative Normal NEGATIVE [facility] Comment on above: Performed By: #### E RUR ####[facility] Z[address]ovvoovr[address] [place], [place] [address]Dr. Donna Malone Ketones Ql (U) TRACE Abnormal NEGATIVE [facility] Comment on above: Performed By: #### E RUR ####[facility] Hsicgxsurw[address] [place], [place] [address]Dr. Donna Malone LEUKOCYTES Negative Normal NEGATIVE [facility] Comment on above: Performed By: #### E RUR ####[facility] Czwgszvuyz[address] [place], [place] [address]Dr. Donna Malone Nitrite Ql (U) Negative Normal NEGATIVE [facility] Comment on above: Performed By: #### E RUR ####[facility] Inzydbqkqw[address] [place], [place] [address]Dr. Donna Malone pH (U) 6.0 [pH] Normal 5-9 [facility] Comment on above: Performed By: #### E RUR ####[facility] Fzzfjcvfkx[address] [place], [place] [address]Dr. Donna Malone SPEC GRAVITY >=1.030 Abnormal 1.005-<=1. 025 [facility] Comment on above: Performed By: #### E RUR ####[facility] [address]ikgmujtch[address] [place], [place] [address]Dr. Donna Malone UA PROTEIN Negative Normal NEGATIVE/ TRACE [facility] Comment on above: Performed By: #### E RUR ####[facility] Gqizmzjwdx[address] [place], [place] [address]Dr. Donna Malone UR MICRO IND NOT INDICATED Normal [facility] Comment on above: Performed By: #### E RUR ####[facility] X[address]wnrsrx65[address] [place] [address]Dr. Donna Malone Urobilinogen Qn (U) 0.2 {Jermain'U}/dL Normal 0.2 - 1. 0 [facility] Comment on above: Performed By: #### E RUR ####[facility] Ruhipnrdya[address] [place] [address]Dr. Donna Malone PROF CHEM 8 (BAS METB)on Anion gap [Moles/Vol] 16.4 mmol/L Normal Th [facility] Comment on above: Performed By: #### B MP ####[facility] Nbuqxvmzxa[address] [place], [place] [address]Dr. Donna Malone Calcium [Mass/Vol] 9.4 mg/dL Normal 8.5-10.1 [facility] Comment on above: Performed By: #### B MP ####[facility] Tqyfbhgvjh[address] [place], [place] [address]Dr. Donna Malone Chloride [Moles/Vol] 103 mmol/L Normal 98-107 [facility] Comment on above: Performed By: #### B MP ####[facility] Pridyoyily[address] [place], [place] [address]Dr. Donna Malone CO2 [Moles/Vol] 23.7 mmol/L Normal 21.0-32.0 [facility] Comment on above: Performed By: #### B MP ####[facility] Vzxuqmuwhe[address] [place], [place] [address]Dr. Donna Malone Creatinine [Mass/Vol] 1.12 mg/dL Normal 0.70-1.30 [facility] Comment on above: Performed By: #### B MP ####[facility] Lalfettooi[address] [place], [place] [address]Dr. Donna Malone EGFR-AF UZBEK >60 Normal >=60 [facility] Comment on above: Performed By: #### B MP ####[facility] Yngqxldraz[address] [place], [place] [address]Dr. Donna Malone EGFR-NON AF UZBEK >60 Normal >=60 [facility] Comment on above: Performed By: #### B MP ####[facility] Lopcvxtokv[address] [place] [address]Dr. Donna Malone Glucose [Mass/Vol] 170 mg/dL Critically high 74-106 [facility] Comment on above: Performed By: #### B MP ####[facility] Iycymgssxt[address] [place] [id number]. Donna Malone Potassium [Moles/Vol] 4.1 mmol/L Normal 3.5-5.1 [facility] Comment on above: Performed By: #### B MP ####[facility] [address]brjvsodv[address] [place], [place] [address]Dr. Donna Malone Sodium [Moles/Vol] 139 mmol/L Normal 136-145 [facility] Comment on above: Performed By: #### B MP ####[facility] Lutcfddigk[address] [place], [place] [address]Dr. Donna Malone Urea nitrogen [Mass/Vol] 9.0 mg/dL Normal 7.0-18.0 [facility] Comment on above: Performed By: #### B MP ####[facility] B[address]ikvq[address] [place], [place] [address]Dr. Donna Malone Urea nitrogen/Creatinine [Mass ratio] 8.0 mg/mg Normal [facility] Comment on above: Performed By: #### B MP ####[facility] Q[address]igh[address]uyz[address] [place], [place] [address]Dr. Donna Malone ACETONE SERUMon 08-10-2022 ACETONE Negative Normal NEGATIVE [facility] Center Comment on above: Performed By: #### A CETON ####[facility] [address] [place], [place] [address]Dr. Donna Malone CBC AUTO DIFFon 08-10-2022 BASO # 0.1 103/ul Normal 0.0-0.1 [facility] Comment on above: Performed By: #### C BC ####[facility] [address] [place], [place] [address]Dr. Donna Faisal Basophils/100 WBC (Bld) 0.7 % Normal 0.2-2.0 [facility] Comment on above: Performed By: #### C BC ####[facility] [address] [place] [address]Dr. Donna Malone EO # 0.2 103/ul Normal 0.0-0.7 [facility] Comment on above: Performed By: #### C BC ####[facility] [address] [place] [address]Dr. Donna Malone Eosinophils/100 WBC (Bld) 2.0 % Normal 0.9-7.0 [facility] Comment on above: Performed By: #### C BC ####[facility] [address] [place], [place] [address]Dr. Donna Malone Erythrocyte distribution width (RBC) [Ratio] 14.3 % Normal 11.0-15.0 [facility] Comment on above: Performed By: #### C BC ####[facility] [address]ok[address] [place], [place] [address]Dr. Donna Malone Hematocrit (Bld) [Volume fraction] 37.3 % Critically low 42.0-54.0 [facility] Comment on above: Performed By: #### C BC ####[facility] [address] [place], [place] [address]Dr. Donna Malone Hemoglobin (Bld) [Mass/Vol] 12.1 g/dL Critically low 14.0-18.0 [facility] Comment on above: Performed By: #### C BC ####[facility] [address] [place], [place] [address]Dr. Donna Malone IG # 0.03 10e3/ul Normal 0.00-0.03 [facility] Comment on above: Performed By: #### C BC ####[facility] B[address] [place], [place] [address]Dr. Donna Malone IG % 0.4 % Normal 0.0-0.5 [facility] Comment on above: Performed By: #### C BC ####[facility] [address] [place], [place] [address]Dr. Donna Malone LYMPH # 1.3 103/ul Normal 1.2-3.8 [facility] Comment on above: Performed By: #### C BC ####[facility] [address] [place] [id number]. Donna Malone Lymphocytes/100 WBC (Bld) 18.3 % Critically low 20.5-60.0 [facility] Comment on above: Performed By: #### C BC ####[facility] [address] [place] [id number]. Rubyyvan Malone MANUAL DIFF REQ NO Normal [facility] Comment on above: Performed By: #### C BC ####[facility] X[address] [place], [place] [address]Dr. Donna Faisal MCH (RBC) [Entitic mass] 30.1 pg Normal 25.9-34.0 [facility] Comment on above: Performed By: #### C BC ####[facility] S[address] [place], [place] [address]Dr. Donna Faisal MCHC (RBC) [Mass/Vol] 32.4 g/dL Normal 29.9-35.2 [facility] Comment on above: Performed By: #### C BC ####[facility] Wooffpby[address] [place], [place] [address]Dr. Donna Faisal MCV (RBC) [Entitic vol] 92.8 fL Normal 80.0-94.0 [facility] Comment on above: Performed By: #### C BC ####[facility] [address] [place], [place] [address]Dr. Donna Faisal MONO # 0.6 103/ul Normal 0.3-0.8 [facility] Comment on above: Performed By: #### C BC ####[facility] [address] [place], [place] [address]Dr. Rubyyvan Malone Monocytes/100 WBC (Bld) 7.6 % Normal 1.7-12.0 [facility] Comment on above: Performed By: #### C BC ####[facility] [address] [place], [place] [address]Dr. Donna Malone NEUT # 5.2 103/ul Normal 1.4-6.5 [facility] Comment on above: Performed By: #### C BC ####[facility] [address] [place], [place] [address]Cb. Donna Malone Neutrophils/100 WBC (Bld) 71.0 % Normal 43.0-75.0 [facility] Comment on above: Performed By: #### C BC ####[facility] [address] [place], [place] [address]Ng. Donna Malone Platelet mean volume (Bld) [Entitic vol] 11.6 fL Normal 9.5-13.5 [facility] Comment on above: Performed By: #### C BC ####[facility] [address] [place], [place] [address]Jm. Donna Malone PLT 237 103/ul Normal 150-450 [facility] Comment on above: Performed By: #### C BC ####[facility] [address] [place] [id number]. Donna Malone RBC 4.02 106/ul Critically low 4.70-6.10 [facility] Comment on above: Performed By: #### C BC ####[facility] [address] [place], [place] [address]Fh. Donna Malone WBC 7.3 103/ul Normal 4.0-11.0 [facility] Comment on above: Performed By: #### C BC ####[facility] [address] [place] [id number]. Donna Malone Covid-19 PCR (CVDTB)on SARS-CoV-2 (COVID-19) RNA JOSÉ MIGUEL+probe Ql (Unsp spec) Not detected Normal NOT DETECTED [facility] Comment on above: Result Comment: When [...] for this test is supported by the [place] of Health and Human Service's declaration that [...] be used). Performed By: #### C VDTBH ####[facility] [address] [place], [place] [address]Dr. Donna Malone LACTATE/LACTIC ACIDon 2021 Lactate [Moles/Vol] 1.3 mmol/L Normal 0.4-1.9 [facility] Comment on above: Performed By: #### L ACT ####[facility] [address] [place], [place] [address]Dr. Donna Malone PROF 14(COMP METB)on 022 Albumin [Mass/Vol] 2.9 g/dL Critically low 3.4-5.0 [facility] Comment on above: Performed By: #### C MARTI, HSTROPN ####[facility] F[address] [place], [place] [address]Dr. Donna Malone Albumin/Globulin [Mass ratio] 0.7 {ratio} Normal [facility] Comment on above: Performed By: #### C MARTI, HSTROPN ####[facility] Rd[address]tr[address] [place], [place] [address]Dr. Donna Malone ALP [Catalytic activity/Vol] 45 U/L Critically low 46-116 [facility] Comment on above: Performed By: #### C MARTI, HSTROPN ####[facility] [address] [place], [place] [address]Dr. Donna Malone ALT [Catalytic activity/Vol] 12 U/L Critically low 16-63 [facility] Comment on above: Performed By: #### C MARTI, HSTROPN ####[facility] [address] [place], [place] [address]Dr. Donna Malone Anion gap [Moles/Vol] 10.9 mmol/L Normal [facility] Comment on above: Performed By: #### C MARTI, HSTROPN ####[facility] [address] [place] [address]Dr. Donna Malone AST [Catalytic activity/Vol] 10 U/L Critically low 15-37 [facility] Comment on above: Performed By: #### C MARTI, HSTROPN ####[facility] [address] [place] [address]Dr. Donna Malone Bilirubin [Mass/Vol] 0.3 mg/dL Normal 0.2-1.0 [facility] Comment on above: Performed By: #### C MARTI, HSTROPN ####[facility] [address] [place], [place] [address]Dr. Donna Malone Calcium [Mass/Vol] 8.9 mg/dL Normal 8.5-10.1 [facility] Comment on above: Performed By: #### C MARTI, HSTROPN ####[facility] [address] [place], [place] [address]Dr. Donna Malone Chloride [Moles/Vol] 106 mmol/L Normal 98-107 [facility] Comment on above: Performed By: #### C MARTI, HSTROPN ####[facility] [address] [place], [place] [address]Dr. Donna Malone CO2 [Moles/Vol] 29.4 mmol/L Normal 21.0-32.0 [facility] Comment on above: Performed By: #### C MARTI, HSTROPN ####[facility] [address] [place], [place] [address]Dr. Donna Malone Creatinine [Mass/Vol] 1.15 mg/dL Normal 0.70-1.30 [facility] Comment on above: Performed By: #### C MARTI, HSTROPN ####[facility] [address] [place], [place] [address]Dr. Donna Malone EGFR-AF UZBEK >60 Normal >=60 [facility] Comment on above: Performed By: #### C MARTI, HSTROPN ####[facility] [address] [place], [place] [address]Dr. Donna Malone EGFR-NON AF UZBEK >60 Normal >=60 [facility] Comment on above: Performed By: #### C MARTI, HSTROPN ####[facility] [address] [place] [address]Dr. Donna Malone Globulin (S) [Mass/Vol] 4.2 g/dL Normal [facility] Comment on above: Performed By: #### C MARTI, HSTROPN ####[facility] [address] [place] [address]Dr. Donna Malone Glucose [Mass/Vol] 116 mg/dL Critically high 74-106 [facility] Comment on above: Performed By: #### C MARTI, HSTROPN ####[facility] [address] [place] [address]Dr. Donna Malone Potassium [Moles/Vol] 4.3 mmol/L Normal 3.5-5.1 [facility] Comment on above: Performed By: #### C MARTI, HSTROPN ####[facility] [address] [place] [address]Dr. Donna Malone Protein [Mass/Vol] 7.1 g/dL Normal 6.4-8.2 [facility] Comment on above: Performed By: #### C MARTI, HSTROPN ####[facility] [address] [place] [address]Dr. Donna Malone Sodium [Moles/Vol] 142 mmol/L Normal 136-145 [facility] Comment on above: Performed By: #### C MARTI, HSTROPN ####[facility] [address] [place] [address]Dr. Donna Malone Urea nitrogen [Mass/Vol] 9.0 mg/dL Normal 7.0-18.0 [facility] Comment on above: Performed By: #### C MARTI, HSTROPN ####[facility] [address] [place] [address]Dr. Donna Malone Urea nitrogen/Creatinine [Mass ratio] 7.8 mg/mg Normal [facility] Comment on above: Performed By: #### C MARTI, HSTROPN ####[facility] [address] [place], [place] [address]Gx. Donna Malone TROPONIN, HIGH SENSITIVITYon 08-10-2022 HSTROP 9.1 pg/mL Normal 4.0-76.1 [facility] Comment on above: Result Comment: CUT- OFF POINTS HAVE BEEN ESTABLISHED BASED ON THE FOURTH UNIVERSAL DEFINITIONS OF MYOCARDIALINFARCTION. THE UPPER REFERENCE LIMIT (URL) OF TROPONIN, DEFINED THE 99TH PERCENTILE OFcTnI DISTRIBUTION IN A REFERENCE POPULATION, HAS BEEN CONFIRMED THE DECISION THRESHOLDFOR CT DIAGNOSIS. Performed By: #### C MP, HSTROPN ####[facility] [address] [place], [place] [address]Db. Donna Malone XR KNEE RT 4V or >on 022 XR KNEE RT 4V or > Normal [facility] CT HEAD WO [facility] 08-05-2022 CT HEAD WO CON Normal [facility] CT CSPINE WO [facility] 2 CT CSPINE WO CON Normal [facility] CON Normal Th e [facility] CT LSPINE WO [facility] 2 CT LSPINE WO CON Normal [facility] Glucose Glucometer (BldC) [M ass/Vol]Ordered By: Sang Bauer on 07-20-2022 Glucose [Mass/Vol] 139 mg/dL [facility] Comment on above: Random Glucose Refer ence Range is dependent on time and content of last meal. Glucose of more than 200 mg/dL in a nonstressed, ambulatory subject supports the diagnosis of Diabetes Mellitus. No Panel InformationOrdered By: Sang Bauer on 07-20-2022 Bedside Glucose Comment Glu2: cleaned meter [facility] Cholesterol [Mass/volume] in Serum or PlasmaOrdered By: Sang Bauer on 07-18-2022 Cholesterol [Mass/Vol] 136 mg/dL 140-200 [facility] Comment on above: Chol less than 200 m g/dl low riskChol 201-239 mg/dl borderline riskChol 240 mg/dl and greater high risk Cholesterol in LDL Calc [Mas s/Vol]Ordered By: Sang Bauer on 07-18-2022 Cholesterol in LDL [Mass/Vol] 81 mg/dL 0-100 [facility] Comment on above: LDL ATP III CLASSIFI CATIONLDL less than 100 mg/dL OptimalLDL 100-129 mg/dL Near or above optimalLDL 130-159 mg/dL Borderline highLDL 160-189 mg/dL HighLDL greater than 189 mg/dL Very high Cholesterol in VLDL Calc [Ma ss/Vol]Ordered By: Sang Bauer on 07-18-2022 Cholesterol in VLDL [Mass/Vol] 17 mg/dL [facility] Serum or plasma high density lipoprotein (HDL) cholesterol measurementOrdered By: SangHidalgo on 07-18-2022 Cholesterol in HDL [Mass/Vol] 38 mg/dL 29-71 [facility] Comment on above: HDL CHOL ATP-III CLA SSIFICATION Cardiovascular RiskHDL > or equal to 60 mg/dL LOWHDL < 40 mg/dL HIGH Serum or plasma total choles terol/high density lipoprotein (HDL) cholesterol mass ratOrdered By: Sang Bauer on 07-18-2022 Cholesterol.total/Chol esterol in HDL [Mass ratio] 3.6 {ratio} <5.0 [facility] Triglyceride [Mass/volume] i n Serum or PlasmaOrdered By: Sang Bauer on 07-18-2022 Triglyceride [Mass/Vol] 85 mg/dL 35-149 [facility] Comment on above: TRIG ATP III [...] aPTT Coag (PPP) [Time] 35.8 s 25.1-36.5 [facility] Albumin [Mass/volume] in Ser um or PlasmaOrdered By: Gayathri Leal on 07-17-2022 Albumin [Mass/Vol] 3.1 g/dL 3.2-5.5 [facility] Amphetamine Screen Ql (U)Ord ered By: Gayathri Leal on 07-17-2022 Amphetamines Ql (U) Negative Negative [facility] Automated erythrocytes count in urine sediment (number/area)Ordered By: Gayathri Leal on 07-17-2022 RBC Auto (Urine sed) [#/Area] 3-4 [HPF] 0-4 [facility] Automated leukocytes count i n urine sediment (number/area)Ordered By: Gayathri Leal on 07-17-2022 WBC Auto (Urine sed) [#/Area] 1-2 [HPF] 0-4 [facility] Barbiturates [Presence] in U rineOrdered By: Gayathri Leal on 07-17-2022 Barbiturates Ql (U) Negative Negative [facility] Basophils Auto (Bld) [#/Vol] Ordered By: Gayathri Leal on 07-17-2022 Basophils (Bld) [#/Vol] 0.1 10*3/uL 0.0-0.2 [facility] Basophils/100 WBC Auto (Bld) Ordered By: Gayathri Leal on 07-17-2022 Basophils/100 WBC (Bld) 1.0 % . [facility] Benzodiazepines [Presence] i n UrineOrdered By: Gayathri Leal on 07-17-2022 Benzodiazepines Ql (U) Positive Negative [facility] Bilirubin Test strip Ql (U)O rdered By: Gayathri Leal on 07-17-2022 Bilirubin Ql (U) Negative Negative [facility] COVID CepheidOrdered By: Olya Leal on 07-17-2022 SARS-CoV-2 (COVID-19) Ab IA Ql Negative Negative [facility] Comment on above: This is a duplicate Cepheid Xpert Xpress CoV-2/Flu/RSV Plus RNA by RT-PCR result to be used for statistical tracking purpose only. SARS-CoV-2 (COVID-19) RNA JOSÉ MIGUEL+probe Ql (Unsp spec) [facility] Cannabinoids [Presence] in U rine by Screen methodOrdered By: Gayathri Leal on 07-17-2022 Cannabinoids Screen Ql (U) Negative Negative [facility] Comment on above: These are unconfirme d results and should not be used for legal purposes. Drug Cut-Off Concentration: AMPH 1000 ng/mL EWA 200 ng/mL JOHN 200 ng/mL COCM 300 ng/mL OP 300 ng/mL PCP 25 ng/mL THC 20 ng/mL Color Auto (U)Ordered By: Dung Leal on 07-17-2022 Color (U) Yellow Yellow [facility] Creatine kinase [Enzymatic a ctivity/volume] in Serum or PlasmaOrdered By: Gayathri Leal on 07-17-2022 CK [Catalytic activity/Vol] 137 U/L 22-269 [facility] Creatinine and Glomerular fi ltration rate.predicted panel (S/P/Bld)Ordered By: Gayathri Leal on 07-17-2022 Creatinine [Mass/Vol] 1.06 mg/dL 0.64-1.27 [facility] Direct bilirubin measurement Ordered By: Gayathri Leal on 07-17-2022 Bilirubin.direct [Mass/Vol] mg/dL 0.0-0.4 [facility] Eosinophils Auto (Bld) [#/Vo l]Ordered By: Gayathri Leal on 07-17-2022 Eosinophils (Bld) [#/Vol] 0.1 10*3/uL 0.0-0.45 [facility] Eosinophils/100 WBC Auto (Bl d)Ordered By: Gayathri Leal on 07-17-2022 Eosinophils/100 WBC (Bld) 0.7 % . [facility] Erythrocyte distribution wid th Auto (RBC) [Ratio]Ordered By: Gayathri Leal on 07-17-2022 Erythrocyte distribution width (RBC) [Ratio] 15.8 % 12.0-14.8 [facility] Estimated glomerular filtrat ion rate (GFR) non- AmericanOrdered By: Gayathri Leal on 07-17-2022 GFR/1.73 sq M.predicted among non-blacks MDRD (S/P/Bld) [Vol rate/Area] > 60 mL/Min [facility] Globulin Calc (S) [Mass/Vol] Ordered By: Gayathri Leal on 07-17-2022 Globulin (S) [Mass/Vol] 3.0 g/dL [facility] Glucose mean value [Mass/vol ume] in Blood Estimated from glycated hemoglobinOrdered By: Sang Bauer on 07-17-2022 Average glucose Estimated from glycated hemoglobin (Bld) [Mass/Vol] 114 mg/dL [facility] Hematocrit Auto (Bld) [Volum e fraction]Ordered By: Gayathri Leal on 07-17-2022 Hematocrit (Bld) [Volume fraction] 37.3 % 38.8-50.0 [facility] Hemoglobin A1c percentageOrd ered By: Sang Bauer on 07-17-2022 HbA1c (Bld) [Mass fraction] 5.6 % 4.3-5.6 [facility] Comment on above: Increased risk for d iabetes: 5.7 - 6.4diabetes: >6.4glycemic control for adults with diabetes: <7.0 Hemoglobin [Mass/volume] in BloodOrdered By: Gayathri Leal on 07-17-2022 Hemoglobin (Bld) [Mass/Vol] 12.3 g/dL 13.0-17.0 [facility] Ketones Auto test strip (U) [Mass/Vol]Ordered By: Gayathri Leal on 07-17-2022 Ketones (U) [Mass/Vol] 2+ Negative [facility] - Chemistry and C hemistry - challengeOrdered By: Gayathri Leal on 07-17-2022 Natriuretic peptide B (Bld) [Mass/Vol] 116.0 pg/mL 5-100 [facility] - CoagulationOrde red By: Gayathri Leal on 07-17-2022 PT Coag (PPP) [Time] 12.5 s 9.0-12.9 [facility] - Drug toxicology Ordered By: Gayathri Leal on 07-17-2022 Opiates Ql (U) Negative Negative [facility] - Hematology and Cell countsOrdered By: Gayathri Leal on 07-17-2022 Nucleated RBC/100 WBC (Bld) [Ratio] 0.1 % 0-0.5 [facility] - UrinalysisOrder ed By: Gayathri Leal on 07-17-2022 Hyaline casts LM Ql (Urine sed) None seen [LPF] 0-8 [facility] Leukocytes [#/volume] in Blo od by Automated countOrdered By: Gayathri Leal on 07-17-2022 WBC (Bld) [#/Vol] 7.8 10*3/uL 4.5-11.0 [facility] Lymphocytes Auto (Bld) [#/Vo l]Ordered By: Gayathri Leal on 07-17-2022 Lymphocytes (Bld) [#/Vol] 2.3 10*3/uL 1.00-4.8 [facility] Lymphocytes/100 WBC Auto (Bl d)Ordered By: Gayathri Leal on 07-17-2022 Lymphocytes/100 WBC (Bld) 29.5 % . [facility] MCH Auto (RBC) [Entitic mass ]Ordered By: Gayathri Leal on 07-17-2022 MCH (RBC) [Entitic mass] 30.2 pg 27.5-35.2 [facility] MCHC Auto (RBC) [Mass/Vol]Or dered By: Gayathri Leal on 07-17-2022 MCHC (RBC) [Mass/Vol] 33.1 g/dL 32.5-35.6 [facility] MCV Auto (RBC) [Entitic vol] Ordered By: Gayathri Leal on 07-17-2022 MCV (RBC) [Entitic vol] 91.5 fL 83.5-101 [facility] Monocyte %Ordered By: Zeinab Leal on 07-17-2022 Monocyte % 20 umol/L [facility] Monocytes Auto (Bld) [#/Vol] Ordered By: Gayathri Leal on 07-17-2022 Monocytes (Bld) [#/Vol] 0.4 10*3/uL 0.0-0.8 [facility] Monocytes/100 WBC Auto (Bld) Ordered By: Gayathri Leal on 07-17-2022 Monocytes/100 WBC (Bld) 5.4 % . [facility] Neutrophils Auto (Bld) [#/Vo l]Ordered By: Gayathri Leal on 07-17-2022 Neutrophils (Bld) [#/Vol] 4.9 10*3/uL 1.8-7.7 [facility] Neutrophils/100 WBC Auto (Bl d)Ordered By: Gayathri Leal on 07-17-2022 Neutrophils/100 WBC (Bld) 63.4 % . [facility] Nitrite Test strip Ql (U)Ord ered By: Gayathri Leal on 07-17-2022 Nitrite Ql (U) Negative Negative [facility] No Panel InformationOrdered By: Gayathri Leal on 07-17-2022 Estimated GFR () > 60 mL/Min [facility] Comment on above: GFR estimated refere nce range: According to KDOQI guidelines, <60 ml/min/1.73m2 is sufficient to diagnose a patient with chronic kidney disease. Pharmacy Creatinine Clearance (Chem N/A [facility] Phencyclidine Screen Ql (U)O rdered By: Gayathri Leal on 07-17-2022 Phencyclidine Ql (U) Negative Negative [facility] Platelet mean volume Auto (B ld) [Entitic vol]Ordered By: Gayathri Leal on 07-17-2022 Platelet mean volume (Bld) [Entitic vol] 10.2 fL 6.6-10.1 [facility] Platelet poor plasma interna tional normalized ratio (INR) by coagulation assay (relatOrdered By: Gayathri Leal on 07-17-2022 INR Coag (PPP) [Relative time] 1.1 {INR} [facility] Comment on above: INR Therapeutic Rang [...] 07-17-2022 Platelets (Bld) [#/Vol] 239 10*3/uL 150-450 [facility] Protein Auto test strip (U) [Mass/Vol]Ordered By: Gayathri Leal on 07-17-2022 Protein (U) [Mass/Vol] Negative Negative [facility] Protein [Mass/volume] in Ser um or PlasmaOrdered By: Gayathri Leal on 07-17-2022 Protein [Mass/Vol] 6.1 g/dL 6.1-7.9 [facility] RBC Auto (Bld) [#/Vol]Ordere d By: Gayathri Leal on 07-17-2022 RBC (Bld) [#/Vol] 4.07 10*6/uL 3.90-5.60 [facility] Serum or plasma alanine del valle otransferase measurement without P-5'-P (enzymatic activiOrdered By: Gayathri Leal on 07-17-2022 ALT No additional P-5'-P [Catalytic activity/Vol] 13 U/L 10-60 [facility] Serum or plasma albumin/glob ulin mass ratioOrdered By: Gayathri Leal on 07-17-2022 Albumin/Globulin [Mass ratio] 1.0 {ratio} [facility] Serum or plasma alkaline gail sphatase measurement (enzymatic activity/volume)Ordered By: Gayathri Leal on 07-17-2022 ALP [Catalytic activity/Vol] 37 U/L 32-92 [facility] Serum or plasma anion gap de terminationOrdered By: Gayathri Leal on 07-17-2022 Anion gap [Moles/Vol] 12.1 mmol/L 6.0-15.0 [facility] Serum or plasma aspartate am inotransferase measurement (enzymatic activity/volume)Ordered By: Gayathri Leal on 07-17-2022 AST [Catalytic activity/Vol] 15 U/L 10-42 [facility] Serum or plasma calcium deepti urement (mass/volume)Ordered By: Gayathri Leal on 07-17-2022 Calcium [Mass/Vol] 8.8 mg/dL 8.2-10.2 [facility] Serum or plasma chloride deepak surement (moles/volume)Ordered By: Gayathri Leal on 07-17-2022 Chloride [Moles/Vol] 108 mmol/L 95-114 [facility] Serum or plasma creatine kin ase MB (CKMB)/total creatine kinase (CK) ratio by calculaOrdered By: Gayathri Leal on 07-17-2022 CK.MB Calc [Catalytic fraction] 2.6 % 0.00-2.50 [facility] Serum or plasma creatine kin ase MB measurement (mass/volume)Ordered By: Gayathri Leal on 07-17-2022 CK.MB [Mass/Vol] 3.6 ng/mL 0.6-6.3 [facility] Serum or plasma glucose deepti urement (mass/volume)Ordered By: Gayathri Leal on 07-17-2022 Glucose [Mass/Vol] 91 mg/dL 70-100 [facility] Comment on above: ADA recommended refe rence rangeRandom Glucose Reference Range is dependent on time and content of last meal. Glucose of more than 200 mg/dL in a nonstressed, ambulatory subject supports the diagnosis of Diabetes Mellitus. Serum or plasma non-glucuron idated bilirubin measurement (mass/volume)Ordered By: Gayathri Leal on 07-17-2022 Bilirubin.indirect [Mass/Vol] TNP [facility] Comment on above: Test not performed Serum or plasma potassium me asurement (moles/volume)Ordered By: Gayathri Leal on 07-17-2022 Potassium [Moles/Vol] 4.0 mmol/L 3.5-5.1 [facility] Serum or plasma sodium measu rement (moles/volume)Ordered By: Gayathri Leal on 07-17-2022 Sodium [Moles/Vol] 139 mmol/L 136-146 [facility] Serum or plasma total biliru bin measurement (mass/volume)Ordered By: Gayathri Leal on 07-17-2022 Bilirubin [Mass/Vol] 0.8 mg/dL 0.3-1.2 [facility] Serum or plasma total carbon dioxide measurement (moles/volume)Ordered By: Gayathri Leal on 07-17-2022 CO2 [Moles/Vol] 22.9 mmol/L 22.0-30.0 [facility] Serum or plasma urea nitroge n measurement (mass/volume)Ordered By: Gayathri Leal on 07-17-2022 Urea nitrogen [Mass/Vol] 12 mg/dL 9- [facility] Specific gravity Auto test s trip (U) [Rel density]Ordered By: Gayathri Leal on 07-17-2022 Specific gravity (U) [Rel density] 1.024 1.001-1.03 0 [facility] Squamous epithelial cells de tection in urine sediment by light microscopyOrdered By: Gayathri Leal on 07-17-2022 Epithelial cells.squamous LM Ql (Urine sed) None seen [HPF] 0-2 [facility] Troponin I.cardiac [Mass/vol ume] in Serum or Plasma by High sensitivity methodOrdered By: Sang Bauer on 07-17-2022 Troponin I.cardiac High sensitivity method [Mass/Vol] 7 pg/mL 0-20 [facility] Urine bacteria detection by automated methodOrdered By: Gayathri Leal on 07-17-2022 Bacteria Auto Ql (U) None seen None Seen [facility] Urine clarity by refractomet ry automatedOrdered By: Gayathri Leal on 07-17-2022 Clarity Refractometry automated (U) Clear Clear [facility] Urine cocaine detectionOrder ed By: Gayathri Leal on 07-17-2022 Cocaine Ql (U) Negative Negative [facility] Urine glucose measurement by automated test strip (mass/volume)Ordered By: Gayathri Leal on 07-17-2022 Glucose Auto test strip (U) [Mass/Vol] Normal mg/dL Normal [facility] Urine hemoglobin detection b y automated test stripOrdered By: Gayathri Leal on 07-17-2022 Hemoglobin Auto test strip Ql (U) Negative Negative [facility] Urine leukocyte esterase det ection by automated test stripOrdered By: Gayathri Leal on 07-17-2022 Leukocyte esterase Auto test strip Ql (U) 1+ Negative [facility] Urobilinogen Auto test strip (U) [Mass/Vol]Ordered By: Gayathri Leal on 07-17-2022 Urobilinogen (U) [Mass/Vol] Normal mg/dL Normal [facility] pH Auto test strip (U)Ordere d By: Gayathri Leal on 07-17-2022 pH (U) 6.5 [pH] 5.0-9.0 [facility] AMMONIAon 07-16-2022 Ammonia (P) [Moles/Vol] 44 umol/L Critically high -32 [facility] Comment on above: Performed By: #### A MM ####[facility] [address] [place] [address]Dr. Donna Malone BNPon 07-16-2022 Natriuretic peptide B (Bld) [Mass/Vol] 236.0 pg/mL Normal <=900.0 [facility] Comment on above: Performed By: #### C MP, BNP ####[facility] T[address] [place], [place] [address]Dr. Donna Malone CBC AUTO DIFFon 07-16-2022 BASO # 0.1 103/ul Normal 0.0-0.1 [facility] Comment on above: Performed By: #### C BC ####[facility] Xmonivuuka[address] [place], [place] [address]Dr. Donan Malone Basophils/100 WBC (Bld) 1.0 % Normal 0.2-2.0 [facility] Comment on above: Performed By: #### C BC ####[facility] E[address]qr[address] [place], [place] [address]Dr. Donna Malone EO # 0.2 103/ul Normal 0.0-0.7 [facility] Comment on above: Performed By: #### C BC ####[facility] Rfurk[address]ow[address] [place], [place] [address]Dr. Donna Malone Eosinophils/100 WBC (Bld) 3.3 % Normal 0.9-7.0 [facility] Comment on above: Performed By: #### C BC ####[facility] [address]ktj[address] [place], [place] [address]Dr. Donna Malone Erythrocyte distribution width (RBC) [Ratio] 15.1 % Critically high 11.0-15.0 [facility] Comment on above: Performed By: #### C BC ####[facility] Qoaq[address]vx[address] [place], [place] [address]Dr. Donna Malone Hematocrit (Bld) [Volume fraction] 36.1 % Critically low 42.0-54.0 [facility] Comment on above: Performed By: #### C BC ####[facility] [address] [place] [address]Dr. Donna Malone Hemoglobin (Bld) [Mass/Vol] 12.0 g/dL Critically low 14.0-18.0 [facility] Comment on above: Performed By: #### C BC ####[facility] Ez[address]xf[address] [place] [address]Dr. Rubyyvan Malone IG # 0.01 10e3/ul Normal 0.00-0.03 [facility] Comment on above: Performed By: #### C BC ####[facility] F[address] [place], [place] [address]Dr. Donna Malone IG % 0.2 % Normal 0.0-0.5 [facility] Comment on above: Performed By: #### C BC ####[facility] Idaqqlinvo[address] [place], [place] [address]Dr. Donna Malone LYMPH # 2.5 103/ul Normal 1.2-3.8 [facility] Comment on above: Performed By: #### C BC ####[facility] I[address] [place], [place] [address]Dr. Donna Malone Lymphocytes/100 WBC (Bld) 41.1 % Normal 20.5-60.0 [facility] Comment on above: Performed By: #### C BC ####[facility] Zzukk[address] [place], [place] [address]Dr. Donna Malone MANUAL DIFF REQ NO Normal [facility] Comment on above: Performed By: #### C BC ####[facility] Xvx[address] [place], [place] [address]Dr. Donna Malone MCH (RBC) [Entitic mass] 30.6 pg Normal 25.9-34.0 [facility] Comment on above: Performed By: #### C BC ####[facility] Q[address]jw[address] [place], [place] [address]Dr. Donna Malone MCHC (RBC) [Mass/Vol] 33.2 g/dL Normal 29.9-35.2 [facility] Comment on above: Performed By: #### C BC ####[facility] [address] [place] [id number]. Donna Malone MCV (RBC) [Entitic vol] 92.1 fL Normal 80.0-94.0 [facility] Comment on above: Performed By: #### C BC ####[facility] F[address]zp[address] [place] [id number]. Donna Malone MONO # 0.5 103/ul Normal 0.3-0.8 [facility] Comment on above: Performed By: #### C BC ####[facility] [address]px[address] [place] [address]Dr. Donna Faisal Monocytes/100 WBC (Bld) 7.4 % Normal 1.7-12.0 [facility] Comment on above: Performed By: #### C BC ####[facility] E[address] [place], [place] [address]Dr. Donna Malone NEUT # 2.9 103/ul Normal 1.4-6.5 [facility] Comment on above: Performed By: #### C BC ####[facility] Giub[address] [place], [place] [address]Dr. Donna Faisal Neutrophils/100 WBC (Bld) 47.0 % Normal 43.0-75.0 [facility] Comment on above: Performed By: #### C BC ####[facility] [address] [place], [place] [address]Dr. Donna Faisal Platelet mean volume (Bld) [Entitic vol] 11.4 fL Normal 9.5-13.5 [facility] Comment on above: Performed By: #### C BC ####[facility] Pipdaaesou[address] [place], [place] [address]Dr. Donna Faisal PLT 206 103/ul Normal 150-450 [facility] Comment on above: Performed By: #### C BC ####[facility] [address] [place] [id number]. Donna Malone RBC 3.92 106/ul Critically low 4.70-6.10 [facility] Comment on above: Performed By: #### C BC ####[facility] [address] [place] [address]Dr. Donna Malone WBC 6.1 103/ul Normal 4.0-11.0 [facility] Comment on above: Performed By: #### C BC ####[facility] [address] [place] [address]Dr. Donna Malone ECHO LIMITED STUDYon 022 ECHO LIMITED STUDY Normal [facility] MRI BRAIN WO CONon 2 MRI BRAIN WO CON Normal [facility] PROF 14(COMP METB)on 022 Albumin [Mass/Vol] 2.8 g/dL Critically low 3.4-5.0 [facility] Comment on above: Performed By: #### C MP, BNP ####[facility] F[address] [place], [place] [address]Dr. Donna Malone Albumin/Globulin [Mass ratio] 0.9 {ratio} Normal [facility] Comment on above: Performed By: #### C MP, BNP ####[facility] [address] [place] [address]Dr. Donna Malone ALP [Catalytic activity/Vol] 36 U/L Critically low 46-116 [facility] Comment on above: Performed By: #### C MP, BNP ####[facility] [address] [place] [address]Dr. Donna Malone ALT [Catalytic activity/Vol] 13 U/L Critically low 16-63 [facility] Comment on above: Performed By: #### C MP, BNP ####[facility] [address]lf[address] [place] [address]Dr. Donna Malone Anion gap [Moles/Vol] 10.4 mmol/L Normal [facility] Comment on above: Performed By: #### C MP, BNP ####[facility] Lmzh[address]ocvv35[address] [place] [address]Dr. Donna Malone AST [Catalytic activity/Vol] 13 U/L Critically low 15-37 [facility] Comment on above: Performed By: #### C MP, BNP ####[facility] D[address]ktwkbia[address] [place] [address]Dr. Donna Malone Bilirubin [Mass/Vol] 0.3 mg/dL Normal 0.2-1.0 [facility] Comment on above: Performed By: #### C MP, BNP ####[facility] E[address]wipstob[address] [place], [place] [address]Dr. Donna Malone Calcium [Mass/Vol] 8.2 mg/dL Critically low 8.5-10.1 [facility] Comment on above: Performed By: #### C MP, BNP ####[facility] Hyksqoqncu[address] [place], [place] [address]Dr. Donna Malone Chloride [Moles/Vol] 108 mmol/L Critically high 98-107 [facility] Comment on above: Performed By: #### C MP, BNP ####[facility] Amq[address] [place], [place] [address]Dr. Donna Malone CO2 [Moles/Vol] 25.5 mmol/L Normal 21.0-32.0 [facility] Comment on above: Performed By: #### C MP, BNP ####[facility] Pr[address]ogrx[address] [place], [place] [address]Dr. Donna Malone Creatinine [Mass/Vol] 0.92 mg/dL Normal 0.70-1.30 [facility] Comment on above: Performed By: #### C MP, BNP ####[facility] Vyikigkou[address] [place], [place] [address]Dr. Donna Malone EGFR-AF UZBEK >60 Normal >=60 [facility] Comment on above: Performed By: #### C MP, BNP ####[facility] Fyiwmatnwo[address] [place], [place] [address]Dr. Donna Malone EGFR-NON AF UZBEK >60 Normal >=60 [facility] Comment on above: Performed By: #### C MP, BNP ####[facility] Dy[address]pqspzt[address] [place], [place] [address]Dr. Donna Malone Globulin (S) [Mass/Vol] 3.2 g/dL Normal [facility] Comment on above: Performed By: #### C MP, BNP ####[facility] [address] [place] [address]Dr. Donna Malone Glucose [Mass/Vol] 76 mg/dL Normal 74-106 [facility] Comment on above: Performed By: #### C MP, BNP ####[facility] [address] [place] [address]Dr. Donna Malone Potassium [Moles/Vol] 3.9 mmol/L Normal 3.5-5.1 [facility] Comment on above: Performed By: #### C MP, BNP ####[facility] Xkfzxdx[address]em[address] [place] [address]Dr. Donna Malone Protein [Mass/Vol] 6.0 g/dL Critically low 6.4-8.2 Th [facility] Comment on above: Performed By: #### C MP, BNP ####[facility] [address]ts[address] [place], [place] [address]Dr. Donna Malone Sodium [Moles/Vol] 140 mmol/L Normal 136-145 [facility] Comment on above: Performed By: #### C MP, BNP ####[facility] H[address]tr[address]gs[address] [place], [place] [address]Dr. Donna Malone Urea nitrogen [Mass/Vol] 12.0 mg/dL Normal 7.0-18.0 [facility] Comment on above: Performed By: #### C MP, BNP ####[facility] W[address]wz[address]ft[address] [place], [place] [address]Dr. Donna Malone Urea nitrogen/Creatinine [Mass ratio] 13.0 mg/mg Normal [facility] Comment on above: Performed By: #### C MP, BNP ####[facility] [address]imlpe[address] [place], [place] [address]Dr. Donna Malone VIT B12 AND FOLATEon 022 Cobalamin (Vitamin B12) [Mass/Vol] 532.0 pg/mL Normal 193.0-986. 0 [facility] Comment on above: Performed By: #### B 12FOL ####[facility] Vywcjcac[address] [place], [place] [address]Dr. Donna Malone FOLATE 13.60 ng/mL Normal 8.60-58.90 [facility] Comment on above: Performed By: #### B 12FOL ####[facility] [address]zycuzc[address] [place], [place] [address]Dr. Donna Malone AMMONIAon 07-15-2022 Ammonia (P) [Moles/Vol] 23 umol/L Normal 11-32 [facility] Comment on above: Performed By: #### A MM ####[facility] R[address] [place], [place] [address]Dr. Donna Malone BLOOD GASES BTYon 07-15-2022 02 MODE ROOM AIR [facility] Comment on above: Performed By: #### A BG ####[facility] Vvrnwnw[address] [place], [place] [address]Dr. Donna Malone ALLENS TEST Positive [facility] Comment on above: Performed By: #### A BG ####[facility] [address]qtf[address] [place], [place] [address]Dr. Donna Malone Base excess Calc (Bld) [Moles/Vol] -1.3000 mmol/L Normal -2.0-2.0 [facility] Comment on above: Performed By: #### A BG ####[facility] Qiwrzpox[address] [place], [place] [address]Dr. Donna Maloen BIPAP PRESSURE [facility] Comment on above: Performed By: #### A BG ####[facility] [address]zq[address]umb[address] [place], [place] [address]Dr. Donna Malone CPAP [facility] Comment on above: Performed By: #### A BG ####[facility] Nwxtcc[address]ta[address] [place], [place] [address]Dr. Donna Malone FIO2 [facility] Comment on above: Performed By: #### A BG ####[facility] Zyupfevrrm[address] [place], [place] [address]Dr. Donna Malone HCO3 (Bld) [Moles/Vol] 22.7 mmol/L Normal 22.0-26.0 [facility] Comment on above: Performed By: #### A BG ####[facility] [address]xlc[address] [place] [address]Dr. Donna Malone LPM Normal [facility] Comment on above: Performed By: #### A BG ####[facility] [address]zqe[address] [place], [place] [address]Dr. Donna Malone MINUTE VOLUME Normal [facility] Comment on above: Performed By: #### A BG ####[facility] Eqoeqvlnyd[address] [place] [address]Dr. Donna Malone Oxygen (Bld) [Partial pressure] 77.7 mm[Hg] Critically low 80.0-100.0 [facility] Comment on above: Performed By: #### A BG ####[facility] Miynjzgrit[address] [place], [place] [address]Dr. Donna Malone Oxygen saturation in Blood 95.9 % Normal 95.0-100.0 [facility] Comment on above: Performed By: #### A BG ####[facility] [address]axxuzscj[address] [place], [place] [address]Dr. Donna Malone PCO2 33.0 mmHg Critically low 35.0-45.0 [facility] Comment on above: Performed By: #### A BG ####[facility] Cqrktbvsxj[address] [place], [place] [address]Dr. Donna Malone PEEP [facility] Comment on above: Performed By: #### A BG ####[facility] Npm[address]cefqxb[address] [place], [place] [address]Dr. Donna Malone pH (Bld) 7.446 [pH] Normal 7.350-7.45 0 [facility] Comment on above: Performed By: #### A BG ####[facility] [address]fr[address] [place], [place] [address]Dr. Donna Malone PIP [place] [facility] Comment on above: Performed By: #### A BG ####[facility] Zjnygabkuw[address] [place], [place] [address]Dr. Donna Malone PS [facility] Comment on above: Performed By: #### A BG ####[facility] [address] [place], [place] [address]Dr. Donna Malone PUNCTURE SITE RB Normal [facility] Comment on above: Performed By: #### A BG ####[facility] [address]xvs[address] [place] [address]Dr. Donna Malone RATE Normal [facility] Comment on above: Performed By: #### A BG ####[facility] Ed[address]xy[address] [place] [address]Dr. Donna Malone VENT MODE Normal [facility] Comment on above: Performed By: #### A BG ####[facility] Y[address]bs[address] [place] [address]Dr. Donna Malone [place] [facility] Comment on above: Performed By: #### A BG ####[facility] [address]ylos[address] [place] [address]Dr. Donna Malone BNPon 07-15-2022 Natriuretic peptide B (Bld) [Mass/Vol] 111.0 pg/mL Normal <=900.0 [facility] Comment on above: Performed By: #### B FIREARMS MODEL MAKER, CMP, CMADM ####[facility] Ts[address]tr[address] [place] [address]Dr. Rubyyvan Malone CARDIAC MJ 3-6on 2 CK [Catalytic activity/Vol] 102 U/L Normal 39-308 [facility] Comment on above: Performed By: #### C MREP ####[facility] [address]oth[address]db54[address] [place] [address]Dr. Rubyyvan Malone CK.MB [Mass/Vol] 3.67 ng/mL Critically high <=3.60 [facility] Comment on above: Performed By: #### C MREP ####[facility] F[address]ju[address] [place] [address]Dr. Donna Malone HSTROP 13.1 pg/mL Normal 4.0-76.1 [facility] Comment on above: Result Comment: CUT- OFF POINTS HAVE BEEN ESTABLISHED BASED ON THE FOURTH UNIVERSAL DEFINITIONS OF MYOCARDIALINFARCTION. THE UPPER REFERENCE LIMIT (URL) OF TROPONIN, DEFINED THE 99TH PERCENTILE OFcTnI DISTRIBUTION IN A REFERENCE POPULATION, HAS BEEN CONFIRMED THE DECISION THRESHOLDFOR CT DIAGNOSIS. Performed By: #### C MREP ####[facility] Qovseluxjs[address]174 [place], [place] [address]Gx. Donna Malone CK [Catalytic activity/Vol] 89 U/L Normal 39-308 [facility] Comment on above: Performed By: #### C MREP ####[facility] W[address]af[address] [place], [place] [address]Dh. Donna Malone CK.MB [Mass/Vol] 3.37 ng/mL Normal <=3.60 [facility] Comment on above: Performed By: #### C MREP ####[facility] [address] [place] [id number]. Donna Malone HSTROP 11.2 pg/mL Normal 4.0-76.1 [facility] Comment on above: Result Comment: CUT- OFF POINTS HAVE BEEN ESTABLISHED BASED ON THE FOURTH UNIVERSAL DEFINITIONS OF MYOCARDIALINFARCTION. THE UPPER REFERENCE LIMIT (URL) OF TROPONIN, DEFINED THE 99TH PERCENTILE OFcTnI DISTRIBUTION IN A REFERENCE POPULATION, HAS BEEN CONFIRMED THE DECISION THRESHOLDFOR CT DIAGNOSIS. Performed By: #### C MREP ####[facility] [address] [place] [id number]. Donna aMlone CARDIAC MJ ADMITon 022 CK [Catalytic activity/Vol] 76 U/L Normal 39-308 [facility] Comment on above: Performed By: #### B FIREARMS MODEL MAKER, CMP, CMADM ####[facility] [address]fso[address] [place] [id number]. Donna Malone CK.MB [Mass/Vol] 2.59 ng/mL Normal <=3.60 [facility] Comment on above: Performed By: #### B FIREARMS MODEL MAKER, CMP, CMADM ####[facility] W[address]taxneku[address] [place] [id number]. Donna Malone HSTROP 10.1 pg/mL Normal 4.0-76.1 [facility] Comment on above: Result Comment: CUT- OFF POINTS HAVE BEEN ESTABLISHED BASED ON THE FOURTH UNIVERSAL DEFINITIONS OF MYOCARDIALINFARCTION. THE UPPER REFERENCE LIMIT (URL) OF TROPONIN, DEFINED THE 99TH PERCENTILE OFcTnI DISTRIBUTION IN A REFERENCE POPULATION, HAS BEEN CONFIRMED THE DECISION THRESHOLDFOR CT DIAGNOSIS. Performed By: #### B FIREARMS MODEL MAKER, CMP, CMADM ####[facility] [address]xd[address] [place] [address]Dr. Donna Malone BINDU 109 ng/mL Critically high 16-96 [facility] Comment on above: Performed By: #### B FIREARMS MODEL MAKER, CMP, CMADM ####[facility] [address]zvqsbdy[address] [place] [address]Dr. Donna Malone CBC AUTO DIFFon 07-15-2022 BASO # 0.0 103/ul Normal 0.0-0.1 [facility] Comment on above: Performed By: #### C BC ####[facility] Zl[address]izdqlu[address] [place] [address]Dr. Donna Malone Basophils/100 WBC (Bld) 0.7 % Normal 0.2-2.0 [facility] Comment on above: Performed By: #### C BC ####[facility] [address]qqyldbb[address] [place], [place] [address]Dr. Donna Malone EO # 0.1 103/ul Normal 0.0-0.7 [facility] Comment on above: Performed By: #### C BC ####[facility] [address]nz[address]ol[address] [place], [place] [address]Dr. Donna Malone Eosinophils/100 WBC (Bld) 2.3 % Normal 0.9-7.0 [facility] Comment on above: Performed By: #### C BC ####[facility] Ivizsgaxof[address] [place], [place] [address]Dr. Donna Malone Erythrocyte distribution width (RBC) [Ratio] 15.2 % Critically high 11.0-15.0 [facility] Comment on above: Performed By: #### C BC ####[facility] Hrpvhvbwtl[address] [place], [place] [address]Dr. Donna Malone Hematocrit (Bld) [Volume fraction] 34.8 % Critically low 42.0-54.0 [facility] Comment on above: Performed By: #### C BC ####[facility] [address]glgvgzw[address] [place], [place] [address]Dr. Donna Malone Hemoglobin (Bld) [Mass/Vol] 11.4 g/dL Critically low 14.0-18.0 [facility] Comment on above: Performed By: #### C BC ####[facility] [address]vpfwj[address] [place] [address]DrElizabeth Beltranyvan Malone IG # 0.01 10e3/ul Normal 0.00-0.03 [facility] Comment on above: Performed By: #### C BC ####[facility] Whowtdjcws[address] [place] [address]Dr. Rubyyvan Malone IG % 0.2 % Normal 0.0-0.5 [facility] Comment on above: Performed By: #### C BC ####[facility] Srloigpbiq[address] [place], [place] [address]DrElizabeth Malone LYMPH # 1.6 103/ul Normal 1.2-3.8 [facility] Comment on above: Performed By: #### C BC ####[facility] Wtnxbuflxq[address] [place], [place] [address]DrElizabeth Rubyyvan Malone Lymphocytes/100 WBC (Bld) 26.4 % Normal 20.5-60.0 [facility] Comment on above: Performed By: #### C BC ####[facility] E[address] [place], [place] [address]DrElizabeth Rubyyvan Malone MANUAL DIFF REQ NO Normal [facility] Comment on above: Performed By: #### C BC ####[facility] Fauspvkyme[address] [place], [place] [address]DrElizabeth Rubyyvan Malone MCH (RBC) [Entitic mass] 30.7 pg Normal 25.9-34.0 [facility] Comment on above: Performed By: #### C BC ####[facility] [address]vmwmw[address] [place], [place] [address]DrElizabeth Rubyyvan Malone MCHC (RBC) [Mass/Vol] 32.8 g/dL Normal 29.9-35.2 [facility] Comment on above: Performed By: #### C BC ####[facility] [address]ofarupebp[address] [place], [place] [address]DrElizabeth Rubyyvan Malone MCV (RBC) [Entitic vol] 93.8 fL Normal 80.0-94.0 [facility] Comment on above: Performed By: #### C BC ####[facility] [address]oy[address] [place] [address]DrElizabeth Malone MONO # 0.5 103/ul Normal 0.3-0.8 [facility] Comment on above: Performed By: #### C BC ####[facility] Jrkephtaia[address] [place] [address]DrElizabeth Malone Monocytes/100 WBC (Bld) 7.5 % Normal 1.7-12.0 [facility] [facility] Comment on above: Performed By: #### C BC ####[facility] Xou[address]ty[address] [place], [place] [address]DrElizabeth Malone NEUT # 3.8 103/ul Normal 1.4-6.5 [facility] Comment on above: Performed By: #### C BC ####[facility] Ieruonmudc[address] [place], [place] [address]DrElizabeth Malone Neutrophils/100 WBC (Bld) 62.9 % Normal 43.0-75.0 [facility] Comment on above: Performed By: #### C BC ####[facility] Zpnxhhubrm[address] [place], [place] [address]DrElizabeth Malone Platelet mean volume (Bld) [Entitic vol] 11.7 fL Normal 9.5-13.5 [facility] Comment on above: Performed By: #### C BC ####[facility] Oyetvofnvr[address] [place], [place] [address]Dr. Donna Malone PLT 220 103/ul Normal 150-450 [facility] Comment on above: Performed By: #### C BC ####[facility] Jkjyzryqyd[address] [place], [place] [address]DrElizabeth Malone RBC 3.71 106/ul Critically low 4.70-6.10 [facility] Comment on above: Performed By: #### C BC ####[facility] Iivfndjjkb[address] [place] [id number] Malone WBC 6.0 103/ul Normal 4.0-11.0 [facility] Comment on above: Performed By: #### C BC ####[facility] P[address]fhxhabj[address] [place], [place] [address]Ps. Donna Malone CT CSPINE WO CONon 2 CT CSPINE WO CON Normal [facility] CT HEAD WO CONon 07-15-2022 CT HEAD WO CON Normal [facility] CTA NECK WO W CONon 07-15-20 22 CTA NECK WO W CON Normal [facility] CULTURE URINEon 07-15-2022 CULTURE URINE Culture Observations : LIGHT GROWTH OF MIXED SKIN MICHAEL. NO POTENTIAL PATHOGENS SEEN. Normal [facility] Comment on above: Performed By: #### U RCX ####[facility] Lmbvisyq[address] [place], [place] [address]Ce. Donna Faisal Covid-19 [facility] ([facility])on SARS-CoV-2 (COVID-19) RNA JOSÉ MIGUEL+probe Ql (Unsp spec) Not detected Normal NOT DETECTED [facility] Comment on above: Result Comment: When [...] for this test is supported by the [place] of Health and Human Service's declaration that [...] be used). Performed By: #### C VDTBH ####[facility] Zwchdbtxpn299[address] [place], [place] [address]Zl. Rubyyvan Malone DEPAKENE/VALPROICon 07-15-20 22 DEPAKENE 53.6 ug/ml Normal 50.0-100.0 [facility] Comment on above: Performed By: #### V ALP ####[facility] [address] [place] [address]Dr. Donna Malone DRUG SCREEN RAPID (URINE)on 07-15-2022 AMP Negative Normal NEGATIVE [facility] Comment on above: Performed By: #### D RUGDANNIELLED, ERUR ####[facility] Xutbzriikb[address] [place] [address]Dr. Donna Faisal BAR Negative Normal NEGATIVE [facility] Comment on above: Performed By: #### D RUGRPD, ERUR ####[facility] [address]zcigvex[address] [place] [address]Dr. Rubyyvan Malone BUP Negative Normal NEGATIVE [facility] Comment on above: Performed By: #### D SHARONA, ERUR ####[facility] [address]udgpblve[address] [place] [address]Dr. Rubyyvan Faisal BZO Positive Abnormal NEGATIVE [facility] Comment on above: Performed By: #### D KAMRYND, ERUR ####[facility] Etgynvbkie[address]34 [place] [address]Dr. Donna Faisal EVONNE Negative Normal NEGATIVE [facility] Comment on above: Performed By: #### D SHARONA, ERUR ####[facility] Pwxetqytzs38[address] [place] [address]Dr. Donna Malone CUT-OFFS SEE BELOW Normal [facility] Comment on above: Result Comment: AMP [...] ng/mL Performed By: #### D RUGRPD, ERUR ####[facility] Ge[address]jjzviq23[address] [place] [id number]. Donna Malone DRUG CUT HEADER DRUG CLASS TEST SYST EM CUT-OFF CONCENTRATIONS ARE FOLLOWS: Normal [facility] Comment on above: Performed By: #### D SHARONA, ERUR ####[facility] Wps[address]yzahl36[address] [place] [id number]. Donna Malone mAMP Negative Normal NEGATIVE [facility] Comment on above: Performed By: #### D SHARONA, ERUR ####[facility] Owdpqvslvz4174 [place] [id number]. Donna Malone MTD Negative Normal NEGATIVE [facility] Comment on above: Performed By: #### D SHARONA, ERUR ####[facility] Gsleyxvttf6[address] [place] [id number]. Donna Malone OPI Negative Normal NEGATIVE [facility] Comment on above: Performed By: #### D SHARONA, ERUR ####[facility] Vyxsakgsec5[address] [place] [address]Dr. Yilan Malone OXY Negative Normal NEGATIVE [facility] Comment on above: Performed By: #### Calvin TABOR, ERUR ####[facility] Eblgbxwemo7[address] [place] [id number]. Donna Malone PCP Negative Normal NEGATIVE [facility] Comment on above: Performed By: #### Calvin TABOR, ERUR ####[facility] Fjnkepscyh4358 [place] [address]Dr. Rubylan Malone PPX Negative Normal NEGATIVE [facility] Comment on above: Performed By: #### D SHARONA, ERUR ####[facility] Hflntvjmft45[address] [place] [id number]. Donna Malone TCA Positive Abnormal NEGATIVE [facility] Comment on above: Performed By: #### D SHARONA, ERUR ####[facility] Mipseirpuf2572 [place] [id number]. Donna Malone THC Negative Normal NEGATIVE [facility] Comment on above: Performed By: #### Calvin TABOR, ERUR ####[facility] Mwrynvyfbi2603 [place] [address]Dr. Donna Malone ER URINE PROFILEon 2 Bilirubin Ql (U) Negative Normal NEGATIVE [facility] Comment on above: Performed By: #### Calvin TABOR, ERUR ####[facility] Cmxevnhvyx4295 [place] [address]Dr. Rubyyvan Malone Clarity (U) CLEAR Normal CLEAR [facility] Comment on above: Performed By: #### Calvin TABOR ERUR ####[facility] Zfszwksrpo64[address] [place], [place] [address]Dr. Donna Malone Color (U) YELLOW Normal YELLOW [facility] Comment on above: Performed By: #### Calvin TABOR ERUR ####[facility] Uigtkagmps[address] [place], [place] [address]Dr. Donna Malone ERUAHD A micrscopic examina tion will be performed if indicated. Normal [facility] Comment on above: Performed By: #### Calvin TABOR ERUR ####[facility] Xdavnqdlms1968[address] [place], [place] [address]Dr. Donna Malone Glucose Ql (U) Negative Normal NEGATIVE [facility] Comment on above: Performed By: #### Calvin TABOR ERUR ####[facility] Tidkdehthy30[address] [place], [place] [address]Dr. Donna Malone Hemoglobin Ql (U) Negative Normal NEGATIVE [facility] Comment on above: Performed By: #### Calvin TABOR ERUR ####[facility] Jlqseauuzy[address] [place], [place] [address]Dr. Donna Malone Ketones Ql (U) 15 mg/dl Abnormal NEGATIVE [facility] Comment on above: Performed By: #### Calvin TABOR ERUR ####[facility] Pewilbzfsx940[address] [place], [place] [address]Dr. Rubylan Malone LEUKOCYTES Negative Normal NEGATIVE [facility] Comment on above: Performed By: #### Calvin TABOR ERUR ####[facility] Grcbsjcgbc057[address] [place], [place] [address]Dr. Donna Malone Nitrite Ql (U) Negative Normal NEGATIVE [facility] Comment on above: Performed By: #### D SHARONA, ERUR ####[facility] Mubvupthqy547[address] [place], [place] [address]Dr. Donna Malone pH (U) 6.0 [pH] Normal 5-9 [facility] Comment on above: Performed By: #### D SHARONA, ERUR ####[facility] Mbnmupitte16[address] [place], [place] [address]Dr. Donna Malone SPEC GRAVITY >=1.030 Abnormal 1.005-<=1. 025 [facility] Comment on above: Performed By: #### Calvin TABOR, ERUR ####[facility] Jyhomimnua[address] [place], [place] [address]Dr. Donna Malone UA PROTEIN TRACE Normal NEGATIVE/ TRACE [facility] Comment on above: Performed By: #### Calvin TABOR, ERUR ####[facility] Pkzeommwvb5[address] [place], [place] [address]Dr. Dnona Malone UR MICRO IND NOT INDICATED Normal [facility] Comment on above: Performed By: #### D SHARONA ERUR ####[facility] Fqpyzjqwgu[address] [place], [place] [address]Dr. Donna Malone Urobilinogen Qn (U) 0.2 {Jermain'U}/dL Normal 0.2 - 1. 0 [facility] Comment on above: Performed By: #### Calvin TABOR, ERUR ####[facility] Ruutcrbcgc[address] [place], [place] [address]Dr. Donna Malone ETHANOL (BLD ALC)on 07-15-20 22 ALC NOTE NOTE: 80 mg/dl is th e legal limit for a blood alcohol level Normal [facility] Comment on above: Performed By: #### E TH ####[facility] Fguvnlrtma[address] [place], [place] [address]Dr. Donna Malone Ethanol [Mass/Vol] mg/dL Normal [facility] Comment on above: Performed By: #### E TH ####[facility] Kifpwyccts[address] [place], [place] [address]Dr. Donna Malone LACTATE/LACTIC ACIDon 2021 Lactate [Moles/Vol] 1.3 mmol/L Normal 0.4-1.9 [facility] Comment on above: Performed By: #### L ACT ####[facility] Fwhgxyxxbx8674 [place] [address]Dr. Donna Malone PROF 14(COMP METB)on 022 Albumin [Mass/Vol] 2.9 g/dL Critically low 3.4-5.0 Th [facility] Comment on above: Performed By: #### B FIREARMS MODEL MAKER, CMP, CMADM ####[facility] Qvrunjoymk2864 [place] [address]Dr. Donna Malone Albumin/Globulin [Mass ratio] 0.9 {ratio} Normal [facility] Comment on above: Performed By: #### B FIREARMS MODEL MAKER, CMP, CMADM ####[facility] Pvydebzufr9797 [place] [address]Dr. Donna Malone ALP [Catalytic activity/Vol] 37 U/L Critically low 46-116 [facility] Comment on above: Performed By: #### B FIREARMS MODEL MAKER, CMP, CMADM ####[facility] Aumdbwfjfd0604 [place] [address]Dr. Donna Malone ALT [Catalytic activity/Vol] 10 U/L Critically low 16-63 [facility] Comment on above: Performed By: #### B FIREARMS MODEL MAKER, CMP, CMADM ####[facility] Fhhpkezyln2783 [place] [address]Dr. Donna Malone Anion gap [Moles/Vol] 8.0 mmol/L Normal [facility] Comment on above: Performed By: #### B FIREARMS MODEL MAKER, CMP, CMADM ####[facility] Nqapgeulgs2430 [place] [address]Dr. Donna Malone AST [Catalytic activity/Vol] 12 U/L Critically low 15-37 [facility] Comment on above: Performed By: #### B FIREARMS MODEL MAKER, CMP, CMADM ####[facility] Baxqbwozzu[address] [place] [address]Dr. Donna Malone Bilirubin [Mass/Vol] 0.3 mg/dL Normal 0.2-1.0 [facility] Comment on above: Performed By: #### B FIREARMS MODEL MAKER, CMP, CMADM ####[facility] Izupiiyhct4422 [place] [address]Dr. Donna Malone Calcium [Mass/Vol] 7.9 mg/dL Critically low 8.5-10.1 Th e [facility] Comment on above: Performed By: #### B FIREARMS MODEL MAKER, CMP, CMADM ####[facility] Ibazlzpfds2899 [place] [address]Dr. Donna Malone Chloride [Moles/Vol] 107 mmol/L Normal 98-107 [facility] Comment on above: Performed By: #### B FIREARMS MODEL MAKER, CMP, CMADM ####[facility] Raesqjfqvq[address] [place], [place] [address]Dr. Donna Malone CO2 [Moles/Vol] 27.1 mmol/L Normal 21.0-32.0 [facility] Comment on above: Performed By: #### B FIREARMS MODEL MAKER, CMP, CMADM ####[facility] Poltvkxcte[address] [place], [place] [address]Dr. Donna Malone Creatinine [Mass/Vol] 0.99 mg/dL Normal 0.70-1.30 [facility] Comment on above: Performed By: #### B FIREARMS MODEL MAKER, CMP, CMADM ####[facility] Fqpoovioua[address] [place], [place] [address]Dr. Donna Malone EGFR-AF UZBEK >60 Normal >=60 [facility] Comment on above: Performed By: #### B FIREARMS MODEL MAKER, CMP, CMADM ####[facility] Dipeivgxps[address] [place], [place] [address]Dr. Donna Malone EGFR-NON AF UZBEK >60 Normal >=60 [facility] Comment on above: Performed By: #### B FIREARMS MODEL MAKER, CMP, CMADM ####[facility] Fcjolvnpuq[address] [place], [place] [address]Dr. Donna Malone Globulin (S) [Mass/Vol] 3.3 g/dL Normal [facility] Comment on above: Performed By: #### B FIREARMS MODEL MAKER, CMP, CMADM ####[facility] Gsjkthjnpt[address] [place], [place] [address]Dr. Rubyyvan Malone Glucose [Mass/Vol] 101 mg/dL Normal 74-106 [facility] Comment on above: Performed By: #### B FIREARMS MODEL MAKER, CMP, CMADM ####[facility] Fkvxsispme3361 [place] [address]Dr. Rubyyvan Malone Potassium [Moles/Vol] 4.1 mmol/L Normal 3.5-5.1 [facility] Comment on above: Performed By: #### B FIREARMS MODEL MAKER, CMP, CMADM ####[facility] Gccmxejytq5651 [place] [address]Dr. Donna Malone Protein [Mass/Vol] 6.2 g/dL Critically low 6.4-8.2 Th [facility] Comment on above: Performed By: #### B FIREARMS MODEL MAKER, CMP, CMADM ####[facility] Ppydjcghda[address] [place], [place] [address]Dr. Donna Malone Sodium [Moles/Vol] 138 mmol/L Normal 136-145 [facility] Comment on above: Performed By: #### B FIREARMS MODEL MAKER, CMP, CMADM ####[facility] Qqgrlleicn0382 [place] [address]Dr. Rubyyvan Malone Urea nitrogen [Mass/Vol] 16.0 mg/dL Normal 7.0-18.0 [facility] Comment on above: Performed By: #### B FIREARMS MODEL MAKER, CMP, CMADM ####[facility] Nkxhafpiwf8198 [place] [address]Dr. Donna Malone Urea nitrogen/Creatinine [Mass ratio] 16.2 mg/mg Normal [facility] Comment on above: Performed By: #### B FIREARMS MODEL MAKER, CMP, CMADM ####[facility] Hzhpkfulbw9903 [place] [address]Dr. Donna Malone PROTIMEon 07-15-2022 INR Coag (PPP) [Relative time] 1.06 {INR} Normal [facility] Comment on above: Performed By: #### P T, PTT ####[facility] Wxgxbghkmj511[address] [place], [place] [address]Dr. Donna Malone INR GUIDELINES SEE BELOW Normal [facility] Comment on above: Result Comment: FLORESITA RED INR: 2.0 - 3.0 CONDITIONS NOT LISTED BELOW 2.5 - 3.5 FOR PROSTHETIC HEART VALVE REPLACEMENT 2.5 - 3.5 RECURRENT THROMBOSIS Performed By: #### P T, PTT ####[facility] Lbvblorqfm[address] [place], [place] [address]Dr. Donna Malone PT Coag (PPP) [Time] 11.4 s Normal 9.0-11.6 [facility] Comment on above: Performed By: #### P T, PTT ####[facility] K[address]jpjsomvm[address] [place], [place] [address]Dr. Donna Malone PTTon 07-15-2022 aPTT Coag (Bld) [Time] 30.8 s Normal 22.3-36.2 [facility] Comment on above: Performed By: #### P T, PTT ####[facility] Oslzjotgrv[address] [place], [place] [address]Dr. Donna Malone XR CHEST 1 Von 07-15-2022 XR CHEST 1 V Normal [facility] CULTURE URINEon 06-24-2022 CULTURE URINE Normal [facility] Comment on above: Performed By: #### U RCX ####[facility] Dunktheqlq[address] [place], [place] [address]Dr. Donna Malone UA RANDOM W/MICROSCOPICon BACTERIA NONE SEEN Normal NONE SEEN [facility] Comment on above: Performed By: #### U AMIC ####[facility] Biophbpzqa8[address] [place], [place] [address]Dr. Donna Malone Bilirubin Ql (U) Negative Normal NEGATIVE [facility] Comment on above: Performed By: #### U AMIC ####[facility] Mcsfpcdwqm[address] [place], [place] [address]Dr. Donna Malone CAST NONE SEEN Normal NONE SEEN [facility] Comment on above: Performed By: #### U AMIC ####[facility] Uwaqmxgnir[address] [place], [place] [address]Dr. Donna Malone Clarity (U) CLEAR Normal CLEAR [facility] Comment on above: Performed By: #### U AMIC ####[facility] S[address]gqdith3018 [place] [address]Dr. Donna Malone Color (U) DK. YELLOW Normal YELLOW [facility] Comment on above: Performed By: #### U AMIC ####[facility] Fwvwdjqibm[address] [place], [place] [address]Dr. Donna Malone Crystals LM Nom (Urine sed) NONE SEEN Normal NONE SEEN [facility] Comment on above: Performed By: #### U AMIC ####[facility] Vexafjpgut711[address] [place], [place] [address]Dr. Donna Malone Epithelial cells LM Ql (Urine sed) NONE SEEN Normal NONE SEEN /RARE [facility] Comment on above: Performed By: #### U AMIC ####[facility] Kaokjjcbdq[address] [place], [place] [address]Dr. Donna Malone Glucose Ql (U) 100 mg/dl Abnormal NEGATIVE [facility] Comment on above: Performed By: #### U AMIC ####[facility] Kqdrgycpqc62[address] [place], [place] [address]Dr. Donna Malone Hemoglobin Ql (U) Negative Normal NEGATIVE [facility] Comment on above: Performed By: #### U AMIC ####[facility] Bdrbqrcxig09[address] [place], [place] [address]Dr. Donna Malone Ketones Ql (U) TRACE Abnormal NEGATIVE [facility] Comment on above: Performed By: #### U AMIC ####[facility] Trvtpegfyw14[address] [place], [place] [address]Dr. Donna Malone LEUKOCYTES Negative Normal NEGATIVE [facility] Comment on above: Performed By: #### U AMIC ####[facility] Rwwqqqodbl[address] [place], [place] [address]Dr. Donna Malone MUCOUS SMALL Abnormal NONE SEEN [facility] Comment on above: Performed By: #### U AMIC ####[facility] Pwzdajifbr[address] [place], [place] [address]Dr. Donna Malone Nitrite Ql (U) Negative Normal NEGATIVE [facility] Comment on above: Performed By: #### U AMIC ####[facility] Ppqdmbfmkc10[address] [place], [place] [address]Dr. Donna Malone pH (U) 6.0 [pH] Normal 5-9 [facility] Comment on above: Performed By: #### U AMIC ####[facility] J[address]vnbyfoi[address] [place] [address]Dr. Donna Malone RBC NONE SEEN Abnormal 0-2 [facility] Comment on above: Performed By: #### U AMIC ####[facility] Jvpeohnbss8994 [place] [id number]. Donna Malone SPEC GRAVITY 1.030 Abnormal 1.005-<=1. 025 [facility] Comment on above: Performed By: #### U AMIC ####[facility] Zejsizqslo3703 [place] [address]Dr. Donna Malone UA PROTEIN Negative Normal NEGATIVE/ TRACE [facility] Comment on above: Performed By: #### U AMIC ####[facility] Eyqmeylacm2915 [place] [address]Dr. Donna Malone Urobilinogen Qn (U) 0.2 {Jermain'U}/dL Normal 0.2 - 1. 0 [facility] Comment on above: Performed By: #### U AMIC ####[facility] Raquqzumkx4627 [place] [address]Dr. Donna Malone WBC 2-5 Abnormal NONE SEEN [facility] Comment on above: Performed By: #### U AMIC ####[facility] Zakvkmlixl[address] [place] [id number]. Donna Malone COMPLIANCE DRUG SCREENon PDF . Normal [facility] Comment on above: Performed By: #### D SDOALC ####[facility] Hgiuptlxde9922 [place] [address]Dr. Donna Malone Summary FINAL Normal [facility] Comment on above: [...] call . Performed By: #### D SDOALC ####[facility] C[address]rwlchvy[address] [place], [place] [address]Dr. Donna Malone CBC AUTO DIFFon 05-16-2022 BASO # 0.0 103/ul Normal 0.0-0.1 [facility] Comment on above: Performed By: #### C BC ####[facility] Kypxwalkni234[address] [place], [place] [address]Dr. Donna Malone Basophils/100 WBC (Bld) 0.4 % Normal 0.2-2.0 [facility] Comment on above: Performed By: #### C BC ####[facility] Qrxiqoelpu[address] [place], [place] [address]Dr. Donna Malone EO # 0.1 103/ul Normal 0.0-0.7 [facility] Comment on above: Performed By: #### C BC ####[facility] Bmrlplynjc20[address] [place], [place] [address]Dr. Donna Malone Eosinophils/100 WBC (Bld) 0.9 % Normal 0.9-7.0 [facility] Comment on above: Performed By: #### C BC ####[facility] Nkqgecojqp6218 [place] [address]Dr. Donna Malone Erythrocyte distribution width (RBC) [Ratio] 14.9 % Normal 11.0-15.0 [facility] Comment on above: Performed By: #### C BC ####[facility] Qjehkyhldq5152 [place] [address]Dr. Donna Malone Hematocrit (Bld) [Volume fraction] 41.0 % Critically low 42.0-54.0 [facility] Comment on above: Performed By: #### C BC ####[facility] Xurnhacksi110[address] [place], [place] [address]Dr. Donna Malone Hemoglobin (Bld) [Mass/Vol] 13.3 g/dL Critically low 14.0-18.0 [facility] Comment on above: Performed By: #### C BC ####[facility] Scattzkgkx[address] [place], [place] [address]Dr. Donna Malone IG # 0.03 10e3/ul Normal 0.00-0.03 [facility] Comment on above: Performed By: #### C BC ####[facility] Wgyuqerlfi[address] [place], [place] [address]Dr. Donna Malone IG % 0.3 % Normal 0.0-0.5 [facility] Comment on above: Performed By: #### C BC ####[facility] Yljvrrvvpp[address] [place], [place] [address]Dr. Donna Malone LYMPH # 1.4 103/ul Normal 1.2-3.8 [facility] Comment on above: Performed By: #### C BC ####[facility] [address]xqyhhavw[address] [place], [place] [address]Dr. Donna Malone Lymphocytes/100 WBC (Bld) 15.3 % Critically low 20.5-60.0 [facility] Comment on above: Performed By: #### C BC ####[facility] Azogcwkdbn[address] [place], [place] [address]Dr. Donna Malone MANUAL DIFF REQ NO Normal [facility] Comment on above: Performed By: #### C BC ####[facility] Ckhlrgljco9262 [place] [id number]. Donna Malone MCH (RBC) [Entitic mass] 29.4 pg Normal 25.9-34.0 [facility] Comment on above: Performed By: #### C BC ####[facility] Aqvmzbsemp0307 [place] [id number]. Donna Malone MCHC (RBC) [Mass/Vol] 32.4 g/dL Normal 29.9-35.2 [facility] Comment on above: Performed By: #### C BC ####[facility] Nlbzdsbmnl9564 [place] [id number]. Donna Malone MCV (RBC) [Entitic vol] 90.5 fL Normal 80.0-94.0 The [facility] [facility] Comment on above: Performed By: #### C BC ####[facility] Y[address] [place], [place] [address]Dr. Donna Malone MONO # 0.8 103/ul Normal 0.3-0.8 [facility] Comment on above: Performed By: #### C BC ####[facility] [address]rnqswbn39[address] [place] [address]Dr. Rubyyvan Malone Monocytes/100 WBC (Bld) 8.7 % Normal 1.7-12.0 [facility] Comment on above: Performed By: #### C BC ####[facility] Jhxtswfxpb[address] [place], [place] [address]Dr. Rubyyvan Malone NEUT # 6.9 103/ul Critically high 1.4-6.5 [facility] Comment on above: Performed By: #### C BC ####[facility] Atzynajkhf[address] [place], [place] [address]Dr. Donna Malone Neutrophils/100 WBC (Bld) 74.4 % Normal 43.0-75.0 [facility] Comment on above: Performed By: #### C BC ####[facility] Tgmbvvaicn464[address] [place], [place] [address]Dr. Donna Malone Platelet mean volume (Bld) [Entitic vol] 11.9 fL Normal 9.5-13.5 [facility] Comment on above: Performed By: #### C BC ####[facility] [address]qtsjl[address] [place] [id number]. Donna Malone PLT 174 103/ul Normal 150-450 [facility] Comment on above: Performed By: #### C BC ####[facility] Abnulfgtfo66[address] [place] [id number]. Donna Malone RBC 4.53 106/ul Critically low 4.70-6.10 [facility] Comment on above: Performed By: #### C BC ####[facility] Okpnlmlpvx1742 [place] [id number]. Donna Malone WBC 9.2 103/ul Normal 4.0-11.0 [facility] Comment on above: Performed By: #### C BC ####[facility] Ppvxtihpfk94[address] [place] [address]Dr. Donna Malone PROF 14(COMP METB)on 022 Albumin [Mass/Vol] 3.0 g/dL Critically low 3.4-5.0 [facility] Comment on above: Performed By: #### C MP ####[facility] Smnkosladb38[address] [place] [id number]. Donna Faisal Albumin/Globulin [Mass ratio] 0.8 {ratio} Normal [facility] Comment on above: Performed By: #### C MP ####[facility] Ibpvmqzoon7100 [place] [address]Dr. Donna Malone ALP [Catalytic activity/Vol] 39 U/L Critically low 46-116 [facility] Comment on above: Performed By: #### C MP ####[facility] Qrohmxsxyk0113 [place] [address]Dr. Donna Malone ALT [Catalytic activity/Vol] 16 U/L Normal 16-63 [facility] Comment on above: Performed By: #### C MP ####[facility] Nsisfqmtjf5192 [place] [address]Dr. Donna Malone Anion gap [Moles/Vol] 10.8 mmol/L Normal [facility] Comment on above: Performed By: #### C MP ####[facility] Wvgfwrhdqh4576 [place] [id number]. Donna Malone AST [Catalytic activity/Vol] 9 U/L Critically low 15-37 [facility] Comment on above: Performed By: #### C MP ####[facility] Rlmotsyyiu7507 [place] [id number]. Donna Malone Bilirubin [Mass/Vol] 0.3 mg/dL Normal 0.2-1.0 [facility] Comment on above: Performed By: #### C MP ####[facility] Tzhnkpxgif7304 [place] [id number]. Donna Malone Calcium [Mass/Vol] 8.8 mg/dL Normal 8.5-10.1 [facility] Comment on above: Performed By: #### C MP ####[facility] Nkyhoyfyvj9[address] [place] [address]Dr. Donna Malone Chloride [Moles/Vol] 105 mmol/L Normal 98-107 [facility] Comment on above: Performed By: #### C MP ####[facility] Dxxtolrchf3152 [place] [id number]. Donna Malone CO2 [Moles/Vol] 26.7 mmol/L Normal 21.0-32.0 [facility] Comment on above: Performed By: #### C MP ####[facility] Njgdurrysv0752 [place] [address]Dr. Donna Malone Creatinine [Mass/Vol] 0.97 mg/dL Normal 0.70-1.30 [facility] Comment on above: Performed By: #### C MP ####[facility] Emzfshjyev0726 [place] [id number]. Donna Malone EGFR-AF UZBEK >60 Normal >=60 [facility] Comment on above: Performed By: #### C MP ####[facility] Tpuraoelcu9652 [place] [id number]. Donna Malone EGFR-NON AF UZBEK >60 Normal >=60 [facility] Comment on above: Performed By: #### C MP ####[facility] Rurashcfxb37[address] [place], [place] [address]Dr. Donna Malone Globulin (S) [Mass/Vol] 3.7 g/dL Normal [facility] Comment on above: Performed By: #### C MP ####[facility] Ptgedezueg5475 [place] [address]Dr. Donna Malone Glucose [Mass/Vol] 98 mg/dL Normal 74-106 [facility] Comment on above: Performed By: #### C MP ####[facility] Zjrqalxdao2853 [place] [address]Dr. Donna Malone Potassium [Moles/Vol] 3.5 mmol/L Normal 3.5-5.1 [facility] Comment on above: Performed By: #### C MP ####[facility] Jczwqxdmwy7229 [place] [address]Dr. Donna Malone Protein [Mass/Vol] 6.7 g/dL Normal 6.4-8.2 [facility] Comment on above: Performed By: #### C MP ####[facility] Mhdrmeuprh[address] [place], [place] [address]Dr. Donna Malone Sodium [Moles/Vol] 139 mmol/L Normal 136-145 [facility] Comment on above: Performed By: #### C MP ####[facility] Heeixzvawg[address] [place], [place] [address]Dr. Donna Malone Urea nitrogen [Mass/Vol] 11.0 mg/dL Normal 7.0-18.0 [facility] Comment on above: Performed By: #### C MP ####[facility] Nprlunpogx[address] [place], [place] [address]Dr. Donna Faisal Urea nitrogen/Creatinine [Mass ratio] 11.3 mg/mg Normal [facility] Comment on above: Performed By: #### C MP ####[facility] Dxdlvalpdc[address] [place], [place] [address]Dr. Donna Faisal T3, TOTAL (TRIIODOTHYRONINE) on 05-16-2022 T3, TOTAL 86 ng/dL Normal 71-180 [facility] Comment on above: Performed By: #### T 3TOTAL ####[facility] Zsheaeihii[address] [place], [place] [address]Dr. Donna Faisal T4 LABCORPon 05-16-2022 T4 [Mass/Vol] 6.4 ug/dL Normal 4.5-12.0 [facility] Comment on above: Performed By: #### T 4LC ####[facility] Dgsuuiosvs126[address] [place], [place] [address]Dr. Donna Malone CBC AUTO DIFFon 05-15-2022 BASO # 0.0 103/ul Normal 0.0-0.1 [facility] Comment on above: Performed By: #### C BC ####[facility] Lfsrvolitd01[address] [place], [place] [address]Dr. Rubyyvan Malone Basophils/100 WBC (Bld) 0.3 % Normal 0.2-2.0 [facility] Comment on above: Performed By: #### C BC ####[facility] Fhlxoqkonr[address] [place], [place] [address]Dr. Donna Malone EO # 0.2 103/ul Normal 0.0-0.7 [facility] Comment on above: Performed By: #### C BC ####[facility] Dnqhnaepyk46[address] [place], [place] [address]Dr. Rubyyvan Malone Eosinophils/100 WBC (Bld) 2.0 % Normal 0.9-7.0 [facility] Comment on above: Performed By: #### C BC ####[facility] Psocemeunv9724[address] [place], [place] [address]Dr. Donna Malone Erythrocyte distribution width (RBC) [Ratio] 14.6 % Normal 11.0-15.0 [facility] Comment on above: Performed By: #### C BC ####[facility] Ruksfgipbz0035[address] [place], [place] [address]Dr. Donna Malone Hematocrit (Bld) [Volume fraction] 38.2 % Critically low 42.0-54.0 [facility] Comment on above: Performed By: #### C BC ####[facility] Wgcfimsfrj[address] [place], [place] [address]Dr. Donna Malone Hemoglobin (Bld) [Mass/Vol] 12.7 g/dL Critically low 14.0-18.0 [facility] Comment on above: Performed By: #### C BC ####[facility] Zzdzomzoxh3547 [place] [address]Dr. Donna Malone IG # 0.04 10e3/ul Critically high 0.00-0.03 [facility] Comment on above: Performed By: #### C BC ####[facility] Kaqatdndqf6329 [place] [address]Dr. Donna Malone IG % 0.4 % Normal 0.0-0.5 [facility] Comment on above: Performed By: #### C BC ####[facility] Rjonuxugwm[address] [place], [place] [address]Dr. Donna Malone LYMPH # 1.4 103/ul Normal 1.2-3.8 [facility] Comment on above: Performed By: #### C BC ####[facility] Wtqblyysna8656 [place] [address]Dr. Donna Malone Lymphocytes/100 WBC (Bld) 14.9 % Critically low 20.5-60.0 [facility] Comment on above: Performed By: #### C BC ####[facility] Soksdhekpy[address] [place] [address]Dr. Donna Malone MANUAL DIFF REQ NO Normal [facility] Comment on above: Performed By: #### C BC ####[facility] Hbsqolngjw6035 [place] [address]Dr. Donna Malone MCH (RBC) [Entitic mass] 30.0 pg Normal 25.9-34.0 [facility] Comment on above: Performed By: #### C BC ####[facility] Vrzftyujss3181 [place] [address]Dr. Donna Malone MCHC (RBC) [Mass/Vol] 33.2 g/dL Normal 29.9-35.2 [facility] Comment on above: Performed By: #### C BC ####[facility] Gymxyajphp9397 [place] [address]Dr. Donna Malone MCV (RBC) [Entitic vol] 90.3 fL Normal 80.0-94.0 [facility] Comment on above: Performed By: #### C BC ####[facility] Qmwyjhavpc7999 [place] [id number]. Donna Malone MONO # 0.8 103/ul Normal 0.3-0.8 [facility] Comment on above: Performed By: #### C BC ####[facility] Qbrexyurum4696 [place] [id number]. Donna Malone Monocytes/100 WBC (Bld) 8.5 % Normal 1.7-12.0 [facility] Comment on above: Performed By: #### C BC ####[facility] Btdopgnzfx4021 [place] [id number]. Donna Malone NEUT # 6.8 103/ul Critically high 1.4-6.5 [facility] Comment on above: Performed By: #### C BC ####[facility] Uigabzdjqb6701 [place] [address]Dr. Donna Malone Neutrophils/100 WBC (Bld) 73.9 % Normal 43.0-75.0 [facility] Comment on above: Performed By: #### C BC ####[facility] Awzhpbgqax0537 [place] [address]Dr. Donna Malone Platelet mean volume (Bld) [Entitic vol] 12.0 fL Normal 9.5-13.5 [facility] Comment on above: Performed By: #### C BC ####[facility] Kfmxbgevse6177 [place] [address]Dr. Donna Malone PLT 154 103/ul Normal 150-450 [facility] Comment on above: Performed By: #### C BC ####[facility] Pnavzyepry5859 [place] [id number]. Donna Malone RBC 4.23 106/ul Critically low 4.70-6.10 [facility] Comment on above: Performed By: #### C BC ####[facility] Gpuedkdupv0498 [place] [id number]. Donna Malone WBC 9.2 103/ul Normal 4.0-11.0 [facility] Comment on above: Performed By: #### C BC ####[facility] Htrmdgyobz5412 [place] [address]Dr. Donna Malone PROF 14(COMP METB)on 022 Albumin [Mass/Vol] 2.9 g/dL Critically low 3.4-5.0 [facility] Comment on above: Performed By: #### C MP ####[facility] Kemheursdy0913 [place] [address]Dr. Donna Malone Albumin/Globulin [Mass ratio] 0.9 {ratio} Normal [facility] Comment on above: Performed By: #### C MP ####[facility] Dcogxbqnxw075[address] [place], [place] [address]Dr. Donna Malone ALP [Catalytic activity/Vol] 41 U/L Critically low 46-116 [facility] Comment on above: Performed By: #### C MP ####[facility] Yigywakuif74[address] [place], [place] [address]Dr. Donna Malone ALT [Catalytic activity/Vol] 12 U/L Critically low 16-63 [facility] Comment on above: Performed By: #### C MP ####[facility] Ipnmqcbhui1958[address] [place], [place] [address]Dr. Donna Malone Anion gap [Moles/Vol] 5.6 mmol/L Normal [facility] Comment on above: Performed By: #### C MP ####[facility] Ijtwpxjmoz832[address] [place], [place] [address]Dr. Donna Malone AST [Catalytic activity/Vol] 8 U/L Critically low 15-37 [facility] Comment on above: Performed By: #### C MP ####[facility] Qbpxhickbz622[address] [place], [place] [address]Dr. Donna Malone Bilirubin [Mass/Vol] 0.5 mg/dL Normal 0.2-1.0 [facility] Comment on above: Performed By: #### C MP ####[facility] Kgkwibixrm229[address] [place], [place] [address]Dr. Donna Malone Calcium [Mass/Vol] 8.3 mg/dL Critically low 8.5-10.1 [facility] Comment on above: Performed By: #### C MP ####[facility] Pwsoxfjthx6095 [place] [address]Dr. Donna Malone Chloride [Moles/Vol] 106 mmol/L Normal 98-107 [facility] Comment on above: Performed By: #### C MP ####[facility] Wjqgmfhoqu5176 [place] [address]Dr. Donna Maloen CO2 [Moles/Vol] 23.1 mmol/L Normal 21.0-32.0 [facility] Comment on above: Performed By: #### C MP ####[facility] Xahqmlwqqg5267 [place] [address]Dr. Donna Malone Creatinine [Mass/Vol] 0.82 mg/dL Normal 0.70-1.30 [facility] Comment on above: Performed By: #### C MP ####[facility] Kjhbpsuhhr32[address] [place], [place] [address]Dr. Donna Malone EGFR-AF UZBEK >60 Normal >=60 [facility] Comment on above: Performed By: #### C MP ####[facility] Xgrboxwylw1966[address] [place], [place] [address]Dr. Donna Malone EGFR-NON AF UZBEK >60 Normal >=60 [facility] Comment on above: Performed By: #### C MP ####[facility] Odwoqnrmlw8467[address] [place], [place] [address]Dr. Donna Malone Globulin (S) [Mass/Vol] 3.2 g/dL Normal [facility] Comment on above: Performed By: #### C MP ####[facility] Xgmvisgncd728[address] [place], [place] [address]Dr. Donna Malone Glucose [Mass/Vol] 81 mg/dL Normal 74-106 [facility] Comment on above: Performed By: #### C MP ####[facility] Qgscofjdky311[address] [place], [place] [address]Dr. Donna Malone Potassium [Moles/Vol] 3.7 mmol/L Normal 3.5-5.1 [facility] Comment on above: Performed By: #### C MP ####[facility] Ugipimpxva127[address] [place], [place] [address]Dr. Donna Malone Protein [Mass/Vol] 6.1 g/dL Critically low 6.4-8.2 Th [facility] Comment on above: Performed By: #### C MP ####[facility] Cgahpujzdq268[address] [place], [place] [address]Dr. Donna Malone Sodium [Moles/Vol] 131 mmol/L Critically low 136-145 Th [facility] Comment on above: Performed By: #### C MP ####[facility] Iiwilttzmq6966[address] [place], [place] [address]Dr. Donna Malone Urea nitrogen [Mass/Vol] 17.0 mg/dL Normal 7.0-18.0 [facility] Comment on above: Performed By: #### C MP ####[facility] Nfetmwaifw774[address] [place], [place] [address]Dr. Donna Malone Urea nitrogen/Creatinine [Mass ratio] 20.7 mg/mg Normal [facility] Comment on above: Performed By: #### C MP ####[facility] Qpvomxqvxr7[address] [place], [place] [address]Dr. Donna Malone CBC AUTO DIFFon 05-14-2022 BASO # 0.1 103/ul Normal 0.0-0.1 [facility] Comment on above: Performed By: #### C BC ####[facility] Iqdnpmngtz88[address] [place], [place] [address]Dr. Donna Malone Basophils/100 WBC (Bld) 0.8 % Normal 0.2-2.0 [facility] Comment on above: Performed By: #### C BC ####[facility] Fznmalrpks65[address] [place], [place] [address]Dr. Donna Malone EO # 0.3 103/ul Normal 0.0-0.7 [facility] Comment on above: Performed By: #### C BC ####[facility] Sbqjahueur434[address] [place], [place] [address]Dr. Donna Malone Eosinophils/100 WBC (Bld) 4.2 % Normal 0.9-7.0 [facility] Comment on above: Performed By: #### C BC ####[facility] Vjguuoskjc6723 [place] [address]Dr. Donna Malone Erythrocyte distribution width (RBC) [Ratio] 14.7 % Normal 11.0-15.0 [facility] Comment on above: Performed By: #### C BC ####[facility] Apdqneqkhz5724 [place] [address]Dr. Donna Malone Hematocrit (Bld) [Volume fraction] 36.5 % Critically low 42.0-54.0 [facility] Comment on above: Performed By: #### C BC ####[facility] Aseqkzeprm45[address] [place], [place] [address]Dr. Donna Malone Hemoglobin (Bld) [Mass/Vol] 11.9 g/dL Critically low 14.0-18.0 [facility] Comment on above: Performed By: #### C BC ####[facility] Erkikflsst356[address] [place], [place] [address]Dr. Donna Malone IG # 0.01 10e3/ul Normal 0.00-0.03 [facility] Comment on above: Performed By: #### C BC ####[facility] Ucfihpkupt64[address] [place], [place] [address]Dr. Donna Malone IG % 0.2 % Normal 0.0-0.5 [facility] Comment on above: Performed By: #### C BC ####[facility] Zhdufdelbm718[address] [place], [place] [address]Dr. Donna Malone LYMPH # 2.1 103/ul Normal 1.2-3.8 [facility] Comment on above: Performed By: #### C BC ####[facility] Aloicoufdw57[address] [place], [place] [address]Dr. Donna Malone Lymphocytes/100 WBC (Bld) 32.1 % Normal 20.5-60.0 [facility] Comment on above: Performed By: #### C BC ####[facility] Rmqfofjccc[address] [place], [place] [address]Dr. Donna Malone MANUAL DIFF REQ NO Normal [facility] Comment on above: Performed By: #### C BC ####[facility] Ensxvbmwgp7158 [place] [id number]. Donna Malone MCH (RBC) [Entitic mass] 29.7 pg Normal 25.9-34.0 [facility] Comment on above: Performed By: #### C BC ####[facility] Cmkiujtixg9044 [place] [id number]. Donna Malone MCHC (RBC) [Mass/Vol] 32.6 g/dL Normal 29.9-35.2 [facility] Comment on above: Performed By: #### C BC ####[facility] Xtwqroragg1885 [place] [id number]. Donna Malone MCV (RBC) [Entitic vol] 91.0 fL Normal 80.0-94.0 [facility] Comment on above: Performed By: #### C BC ####[facility] Rqinawusrt615[address] [place], [place] [address]Dr. Donna Faisal MONO # 0.5 103/ul Normal 0.3-0.8 [facility] Comment on above: Performed By: #### C BC ####[facility] Ejosgcboho5944 [place] [address]Dr. Donna Faisal Monocytes/100 WBC (Bld) 8.1 % Normal 1.7-12.0 [facility] Comment on above: Performed By: #### C BC ####[facility] Atkhhzddaa140[address] [place], [place] [address]Dr. Donna Malone NEUT # 3.5 103/ul Normal 1.4-6.5 [facility] Comment on above: Performed By: #### C BC ####[facility] Lovmvidvzd[address] [place], [place] [address]Dr. Donna Faisal Neutrophils/100 WBC (Bld) 54.6 % Normal 43.0-75.0 [facility] Comment on above: Performed By: #### C BC ####[facility] Basocvsqao[address] [place], [place] [address]Dr. Donna Malone Platelet mean volume (Bld) [Entitic vol] 12.0 fL Normal 9.5-13.5 [facility] Comment on above: Performed By: #### C BC ####[facility] Oquxnsrsdr0195 [place] [id number]. Rubyyvan Faisal PLT 152 103/ul Normal 150-450 [facility] Comment on above: Performed By: #### C BC ####[facility] Syoxwfidpn8081 [place] [id number]. Donna Malone RBC 4.01 106/ul Critically low 4.70-6.10 [facility] Comment on above: Performed By: #### C BC ####[facility] Rxpxojcqup4892 [place] [id number]. Rubyyvan Faisal WBC 6.4 103/ul Normal 4.0-11.0 [facility] Comment on above: Performed By: #### C BC ####[facility] Nzryreznxs1576 [place] [address]Dr. Donna Malone DEPAKENE/VALPROICon 05-14-20 22 DEPAKENE 17.3 ug/ml Critically low 50.0-100.0 [facility] Comment on above: Performed By: #### V ALP ####[facility] Mtlvxvidjc6709 [place] [address]Dr. Donna Malone POINT OF CARE GLUCOSEon Glucose [Mass/Vol] 89 mg/dL Normal 74-106 [facility] Comment on above: Performed By: #### P OCGLUC ####[facility] Tfrdniazgn9[address] [place], [place] [address]DrElizabeth Malone PROF CHEM 8 (BAS METB)on Anion gap [Moles/Vol] 13.6 mmol/L Normal [facility] Comment on above: Performed By: #### B MP ####[facility] Fyztcndomh19[address] [place], [place] [address]DrElizabeth Malone Calcium [Mass/Vol] 7.8 mg/dL Critically low 8.5-10.1 [facility] Comment on above: Performed By: #### B MP ####[facility] Mofixhgrur32[address] [place], [place] [address]DrElizabeth Malone Chloride [Moles/Vol] 112 mmol/L Critically high 98-107 [facility] Comment on above: Performed By: #### B MP ####[facility] Sgnucevfgj9914 [place] [address]Dr. Rubyyvan Faisal CO2 [Moles/Vol] 22.5 mmol/L Normal 21.0-32.0 [facility] Comment on above: Performed By: #### B MP ####[facility] Kebaeeoipd255[address] [place], [place] [address]Dr. Rubyyvan Faisal Creatinine [Mass/Vol] 1.01 mg/dL Normal 0.70-1.30 [facility] Comment on above: Performed By: #### B MP ####[facility] Zwtchxdhkz75[address] [place], [place] [address]Dr. Donna Malone EGFR-AF UZBEK >60 Normal >=60 [facility] Comment on above: Performed By: #### B MP ####[facility] Wnjijyrbsc511[address] [place], [place] [address]Dr. Donna Malone EGFR-NON AF UZBEK >60 Normal >=60 [facility] Comment on above: Performed By: #### B MP ####[facility] Scvvyfwgig[address] [place], [place] [address]Dr. Donna Malone Glucose [Mass/Vol] 84 mg/dL Normal 74-106 [facility] Comment on above: Performed By: #### B MP ####[facility] Yuibdbdyqn67[address] [place], [place] [address]Dr. Donna Malone Potassium [Moles/Vol] 4.1 mmol/L Normal 3.5-5.1 [facility] Comment on above: Performed By: #### B MP ####[facility] Espybguppk[address] [place], [place] [address]Dr. Donna Malone Sodium [Moles/Vol] 144 mmol/L Normal 136-145 [facility] Comment on above: Performed By: #### B MP ####[facility] Duwroxvloa[address] [place], [place] [address]Dr. Donna Malone Urea nitrogen [Mass/Vol] 21.0 mg/dL Critically high 7.0-18.0 [facility] Comment on above: Performed By: #### B MP ####[facility] [address] [place] [address]Dr. Donna Malone Urea nitrogen/Creatinine [Mass ratio] 20.8 mg/mg Normal [facility] Comment on above: Performed By: #### B MP ####[facility] Wh[address]vdm24[address] [place] [address]Dr. Donna Malone TSHon 05-14-2022 TSH 1.086 uIU/mL Normal 0.358-3.74 0 [facility] Comment on above: Performed By: #### T SH ####[facility] Rjvyetyj[address] [place], [place] [address]Dr. Donna Malone BLOOD GASES BTYon 05-13-2022 02 MODE ROOM AIR [facility] Comment on above: Performed By: #### A BG ####[facility] Rqsduiajxd[address] [place], [place] [address]Dr. Donna Malone ALLENS TEST Positive [facility] Comment on above: Performed By: #### A BG ####[facility] Wwzmfpvwlx[address] [place], [place] [address]Dr. Donna Malone Base excess Calc (Bld) [Moles/Vol] -2.5000 mmol/L Critically low -2.0-2.0 [facility] Comment on above: Performed By: #### A BG ####[facility] U[address]xtbq[address] [place], [place] [address]Dr. Donna Malone BIPAP PRESSURE Normal [facility] Comment on above: Performed By: #### A BG ####[facility] Ydfetyqgms[address] [place], [place] [address]Dr. Donna Malone CPAP [facility] Comment on above: Performed By: #### A BG ####[facility] Hezec[address]ry[address] [place], [place] [address]Dr. Donna Malone FIO2 Normal [facility] Comment on above: Performed By: #### A BG ####[facility] Ykfrlqusrj[address] [place], [place] [address]Dr. Donna Malone HCO3 (Bld) [Moles/Vol] 22.4 mmol/L Normal 22.0-26.0 [facility] Comment on above: Performed By: #### A BG ####[facility] R[address]bcvqsqux[address] [place], [place] [address]Dr. Donna Malone LPM [facility] Comment on above: Performed By: #### A BG ####[facility] Hnkvnzycsf[address] [place], [place] [address]Dr. Donna Malone MINUTE VOLUME Normal [facility] Comment on above: Performed By: #### A BG ####[facility] Kddqdutoaz137[address] [place], [place] [address]Dr. Donna Malone Oxygen (Bld) [Partial pressure] 77.6 mm[Hg] Critically low 80.0-100.0 [facility] Comment on above: Performed By: #### A BG ####[facility] Sgxyblstdw[address] [place], [place] [address]Dr. Donna Malone Oxygen saturation in Blood 95.5 % Normal 95.0-100.0 [facility] Comment on above: Performed By: #### A BG ####[facility] Bkpfdlnskv[address] [place], [place] [address]Dr. Donna Malone PCO2 40.8 mmHg Normal 35.0-45.0 [facility] Comment on above: Performed By: #### A BG ####[facility] Nazgsdesyr9[address] [place], [place] [address]Dr. Donna Malone PEEP [facility] Comment on above: Performed By: #### A BG ####[facility] Hpekmjzkqo[address] [place], [place] [address]Dr. Donna Malone pH (Bld) 7.359 [pH] Normal 7.350-7.45 0 [facility] Comment on above: Performed By: #### A BG ####[facility] Vlgmkcdwqo[address] [place], [place] [address]Dr. Donna Malone PIP [facility] Comment on above: Performed By: #### A BG ####[facility] Hneuctjuoh[address] [place], [place] [address]Dr. Donna Malone PS [facility] Comment on above: Performed By: #### A BG ####[facility] [address]ayqvi[address] [place] [address]Dr. Donna Malone PUNCTURE SITE RR Normal [facility] Comment on above: Performed By: #### A BG ####[facility] Rvmjvmjwbx9[address] [place] [address]Dr. Donna Malone RATE Normal [facility] Comment on above: Performed By: #### A BG ####[facility] Njus[address]vqdoi[address] [place] [address]Dr. Donna Malone VENT MODE Normal [facility] Comment on above: Performed By: #### A BG ####[facility] B[address]ukelo[address] [place] [address]Dr. Donna Malone VT [facility] Comment on above: Performed By: #### A BG ####[facility] Zzzktuyiar4[address] [place] [address]Dr. Donna Malone BNPon 05-13-2022 Natriuretic peptide B (Bld) [Mass/Vol] 156.0 pg/mL Normal <=900.0 [facility] Comment on above: Performed By: #### C MP, CMADM, BNP ####[facility] [address] [place] [address]Dr. Donna Malone CARDIAC MJ ADMITon 022 CK [Catalytic activity/Vol] 119 U/L Normal 39-308 [facility] Comment on above: Performed By: #### C MP, CMADM, BNP ####[facility] [address]tw[address]fwx[address] [place] [address]Dr. Donna Malone CK.MB [Mass/Vol] 1.27 ng/mL Normal <=3.60 [facility] Comment on above: Performed By: #### C MP, CMADM, BNP ####[facility] Drvsfnqchl[address] [place], [place] [address]Dr. Donna Malone HSTROP 7.9 pg/mL Normal 4.0-76.1 [facility] Comment on above: Result Comment: CUT- OFF POINTS HAVE BEEN ESTABLISHED BASED ON THE FOURTH UNIVERSAL DEFINITIONS OF MYOCARDIALINFARCTION. THE UPPER REFERENCE LIMIT (URL) OF TROPONIN, DEFINED THE 99TH PERCENTILE OFcTnI DISTRIBUTION IN A REFERENCE POPULATION, HAS BEEN CONFIRMED THE DECISION THRESHOLDFOR CT DIAGNOSIS. Performed By: #### C MP, CMADM, BNP ####[facility] Fx[address]zapmtqn[address] [place] [address]Dr. Donna Malone BINDU 111 ng/mL Critically high 16-96 [facility] Comment on above: Performed By: #### C MP, CMADM, BNP ####[facility] Jwvpsnlqpf8641 [place] [address]Dr. Donna Malone CBC AUTO DIFFon 05-13-2022 BASO # 0.1 103/ul Normal 0.0-0.1 [facility] Comment on above: Performed By: #### C BC ####[facility] Oyhhpgfgfb[address] [place], [place] [address]Dr. Donna Malone Basophils/100 WBC (Bld) 0.8 % Normal 0.2-2.0 [facility] Comment on above: Performed By: #### C BC ####[facility] Qudzf[address]ydi34[address] [place], [place] [address]Dr. Donna Malone EO # 0.1 103/ul Normal 0.0-0.7 [facility] Comment on above: Performed By: #### C BC ####[facility] Lootplwule[address] [place], [place] [address]Dr. Donna Malone Eosinophils/100 WBC (Bld) 1.8 % Normal 0.9-7.0 [facility] Comment on above: Performed By: #### C BC ####[facility] Fdpwfxrdtu5639[address] [place], [place] [address]Dr. Rubyyvan Malone Erythrocyte distribution width (RBC) [Ratio] 14.7 % Normal 11.0-15.0 [facility] Comment on above: Performed By: #### C BC ####[facility] Tzrxwtaogo[address] [place], [place] [address]Dr. Donna Malone Hematocrit (Bld) [Volume fraction] 38.2 % Critically low 42.0-54.0 [facility] Comment on above: Performed By: #### C BC ####[facility] [address]vpar[address] [place] [id number]. Donna Malone Hemoglobin (Bld) [Mass/Vol] 12.7 g/dL Critically low 14.0-18.0 [facility] Comment on above: Performed By: #### C BC ####[facility] K[address]te[address] [place] [id number]. Donna Malone IG # 0.03 10e3/ul Normal 0.00-0.03 [facility] Comment on above: Performed By: #### C BC ####[facility] Nsbmftwwmw93[address] [place] [address]Dr. Donna Malone IG % 0.4 % Normal 0.0-0.5 [facility] Comment on above: Performed By: #### C BC ####[facility] Wsdyympaaz[address] [place], [place] [address]Dr. Donna Malone LYMPH # 1.6 103/ul Normal 1.2-3.8 [facility] Comment on above: Performed By: #### C BC ####[facility] Xntwwerhiy[address] [place], [place] [address]Dr. Donna Malone Lymphocytes/100 WBC (Bld) 22.8 % Normal 20.5-60.0 [facility] Comment on above: Performed By: #### C BC ####[facility] Kuwdruvyzr[address] [place], [place] [address]Dr. Donna Malone MANUAL DIFF REQ NO Normal [facility] Comment on above: Performed By: #### C BC ####[facility] Zzwpdssxur[address] [place], [place] [address]Dr. Donna Malone MCH (RBC) [Entitic mass] 30.2 pg Normal 25.9-34.0 [facility] Comment on above: Performed By: #### C BC ####[facility] Mhy[address]wkzyd[address] [place], [place] [address]Dr. Donna Malone MCHC (RBC) [Mass/Vol] 33.2 g/dL Normal 29.9-35.2 [facility] Comment on above: Performed By: #### C BC ####[facility] [address]jymard[address]so[address] [place] [id number]. Donna Malone MCV (RBC) [Entitic vol] 91.0 fL Normal 80.0-94.0 [facility] Comment on above: Performed By: #### C BC ####[facility] [address]bvfqdyuew37[address] [place] [id number]. Donna Malone MONO # 0.7 103/ul Normal 0.3-0.8 [facility] Comment on above: Performed By: #### C BC ####[facility] [address]zx[address]elsk[address] [place] [id number]. Donna Malone Monocytes/100 WBC (Bld) 9.1 % Normal 1.7-12.0 [facility] Comment on above: Performed By: #### C BC ####[facility] G[address]ocacsby[address] [place] [id number]. Donna Malone NEUT # 4.7 103/ul Normal 1.4-6.5 [facility] Comment on above: Performed By: #### C BC ####[facility] Hdqwkqynwj[address] [place] [id number]. Donna Malone Neutrophils/100 WBC (Bld) 65.1 % Normal 43.0-75.0 [facility] Comment on above: Performed By: #### C BC ####[facility] Qhqfjxqmhy[address] [place] [id number]. Donna Malone Platelet mean volume (Bld) [Entitic vol] 11.8 fL Normal 9.5-13.5 [facility] Comment on above: Performed By: #### C BC ####[facility] Qtizqfjfqy6[address] [place] [id number]. Donna Malone PLT 179 103/ul Normal 150-450 [facility] Comment on above: Performed By: #### C BC ####[facility] Nsgixcaaud[address] [place] [id number]. Donna Malone RBC 4.20 106/ul Critically low 4.70-6.10 [facility] Comment on above: Performed By: #### C BC ####[facility] U[address]xinvovn4[address] [place], [place] [address]Fd. Donna Malone WBC 7.2 103/ul Normal 4.0-11.0 [facility] Comment on above: Performed By: #### C BC ####[facility] Lfigpvbefe[address] [place], [place] [address]Ps. Donna Malone CT STROKE HEAD WOon 05-13-[address] STROKE HEAD WO Normal [facility] Covid-19 PCR (CVDTB)on SARS-CoV-2 (COVID-19) RNA JOSÉ MIGUEL+probe Ql (Unsp spec) Not detected Normal NOT DETECTED [facility] Comment on above: Result Comment: When [...] for this test is supported by the [employer] and Human Service's declaration that [...] be used). Performed By: #### C VDTBH ####[facility] Q[address]ukolvnvs33[address] [place], [place] [address]En. Donna Malone DEPAKENE/VALPROICon 05-13-20 22 DEPAKENE 16.9 ug/ml Critically low 50.0-100.0 [facility] Comment on above: Performed By: #### V ALP ####[facility] Wtqlhutksr5[address] [place], [place] [address]Hb. Donna Malone DRUG SCREEN RAPID (URINE)on 05-13-2022 AMP Negative Normal NEGATIVE [facility] Comment on above: Performed By: #### D RUGRPD ####[facility] Tnpospjtzv[address] [place] [id number]. Donna Malone BAR Negative Normal NEGATIVE [facility] Comment on above: Performed By: #### D RUGRPD ####[facility] Poxmneqvng[address] [place] [id number]. Donna Malone BUP Negative Normal NEGATIVE [facility] Comment on above: Performed By: #### D RUGRPD ####[facility] Nybbfthiwo59[address] [place] [id number]. Donna Malone BZO Positive Abnormal NEGATIVE [facility] Comment on above: Performed By: #### D RUGRPD ####[facility] Bazifameoh[address] [place], [place] [address]Dr. Donna Malone EVONNE Positive Abnormal NEGATIVE [facility] Comment on above: Performed By: #### D RUGRPD ####[facility] Drmkmorfhd[address] [place], [place] [address]Dr. Donna Malone CUT-OFFS SEE BELOW Normal [facility] Comment on above: Result Comment: AMP (Amphetamine): 500ng/mL, BAR (Barbituates): 200 ng/mL, BZO (Benzodiazepines): 150 ng/mL, BUP (Buprenorphine): 10 ng/mL, EVONNE (Cocaine): 150 ng/mL, mAMP (Methamphetamine): 500 ng/mL, MTD (Methadone): 200 ng/mL, OPI (Opiates): 100 ng/mL, OXY (Oxycodone): 100 ng/mL, PCP (Phencyclidine): 25 ng/mL, PPX (Propoxyphene): 300 ng/mL, THC (Cannabinoids): 50 ng/mL, TCA (Trycyclic Antidepressants): 300 ng/mL Performed By: #### D RUGRPD ####[facility] H[address] [place], [place] [address]Dr. oDnna Malone DRUG CUT HEADER DRUG CLASS TEST SYST EM CUT-OFF CONCENTRATIONS ARE FOLLOWS: Normal [facility] Comment on above: Performed By: #### D RUGRPD ####[facility] Qxqrbkbesx[address] [place], [place] [address]Dr. Donna Malone mAMP Negative Normal NEGATIVE [facility] Comment on above: Performed By: #### D RUGRPD ####[facility] Eqrsikxurb50[address] [place] [address]Dr. Donna Malone MTD Negative Normal NEGATIVE [facility] Comment on above: Performed By: #### D RUGRPD ####[facility] Id[address]ubzluq99[address] [place] [address]Dr. Donna Malone OPI Positive Abnormal NEGATIVE [facility] Comment on above: Performed By: #### D RUGRPD ####[facility] Khnyfhheeg7824 [place] [address]Dr. Rubylan Malone OXY Negative Normal NEGATIVE [facility] Comment on above: Performed By: #### D RUGRPD ####[facility] Quswnjphjb[address] [place], [place] [address]Dr. Donna Malone PCP Negative Normal NEGATIVE [facility] Comment on above: Performed By: #### D RUGRPD ####[facility] Gojxhjtlwe[address] [place], [place] [address]Dr. Donna Malone PPX Negative Normal NEGATIVE [facility] Comment on above: Performed By: #### D RUGRPD ####[facility] Ourwlbwquo[address] [place], [place] [address]Dr. Donna Malone TCA Positive Abnormal NEGATIVE [facility] Comment on above: Performed By: #### D RUGRPD ####[facility] Jmpkdaqqen[address] [place], [place] [address]Dr. Donna Malone THC Negative Normal NEGATIVE [facility] Comment on above: Performed By: #### D RUGRPD ####[facility] Dkutregznt[address] [place], [place] [address]Dr. Donna Malone ER URINE PROFILEon 2 Bilirubin Ql (U) MODERATE Abnormal NEGATIVE [facility] Comment on above: Performed By: #### E RUR ####[facility] Bszwjvwggb[address] [place], [place] [address]Dr. Donna Malone Clarity (U) SL CLOUDY Abnormal CLEAR [facility] Comment on above: Performed By: #### E RUR ####[facility] Rvwhzobhjk[address] [place], [place] [address]Dr. Donna Malone Color (U) DK. YELLOW Normal YELLOW [facility] Comment on above: Performed By: #### E RUR ####[facility] Cmuoodxzuz[address] [place], [place] [address]Dr. Donna Malone ERUAHD A micrscopic examina tion will be performed if indicated. Normal [facility] Comment on above: Performed By: #### E RUR ####[facility] Djfoctnlfx9937[address] [place], [place] [address]Dr. Donna Malone Glucose Ql (U) 250 mg/dl Abnormal NEGATIVE [facility] Comment on above: Performed By: #### E RUR ####[facility] Xvbxdfzvyf3246[address] [place], [place] [address]Dr. Donna Malone Hemoglobin Ql (U) Negative Normal NEGATIVE [facility] Comment on above: Performed By: #### E RUR ####[facility] Crrjvzyxqc301[address] [place], [place] [address]Dr. Donna Malone Ketones Ql (U) TRACE Abnormal NEGATIVE [facility] Comment on above: Performed By: #### E RUR ####[facility] Oajhaxufmd544[address] [place], [place] [address]Dr. Donna Malone LEUKOCYTES Negative Normal NEGATIVE [facility] Comment on above: Performed By: #### E RUR ####[facility] Ezmywktyjy[address] [place], [place] [address]Dr. Donna Malone Nitrite Ql (U) Negative Normal NEGATIVE [facility] Comment on above: Performed By: #### E RUR ####[facility] Wbwausstpn[address] [place], [place] [address]Dr. Donna Malone pH (U) 5.5 [pH] Normal 5-9 [facility] Comment on above: Performed By: #### E RUR ####[facility] Vartjyxsqb[address] [place], [place] [address]Dr. Donna Malone SPEC GRAVITY >=1.030 Abnormal 1.005-<=1. 025 [facility] Comment on above: Performed By: #### E RUR ####[facility] Vdjsfuarzj[address] [place], [place] [address]Dr. Donna Malone UA PROTEIN TRACE Normal NEGATIVE/ TRACE [facility] Comment on above: Performed By: #### E RUR ####[facility] Ykfzdyuabc[address] [place], [place] [address]Dr. Donna Malone UR MICRO IND NOT INDICATED Normal [facility] Comment on above: Performed By: #### E RUR ####[facility] Fjjemgfcel[address] [place], [place] [address]Dr. Donna Malone Urobilinogen Qn (U) 1.0 {Jermain'U}/dL Normal 0.2 - 1. 0 [facility] Comment on above: Performed By: #### E RUR ####[facility] Ofclucxszw[address] [place], [place] [address]Dr. Donna Malone ETHANOL (BLD ALC)on 05-13-20 22 ALC NOTE NOTE: 80 mg/dl is th legal limit for a blood alcohol level Normal [facility] Comment on above: Performed By: #### E TH ####[facility] Wgyncsvndb[address] [place], [place] [address]Dr. Donna Malone Ethanol [Mass/Vol] mg/dL Normal [facility] Comment on above: Performed By: #### E TH ####[facility] [address] [place] [address]. Donna Malone LACTATE/LACTIC ACIDon 2021 Lactate [Moles/Vol] 1.7 mmol/L Normal 0.4-1.9 [facility] Comment on above: Performed By: #### L ACT ####[facility] Pbzktqfvbo98[address] [place], [place] [address]Dr. Donna Malone POINT OF CARE GLUCOSEon Glucose [Mass/Vol] 99 mg/dL Normal 74-106 [facility] Comment on above: Performed By: #### P OCGLUC ####[facility] Cbiqxkycwn[address] [place], [place] [address]Dr. Rubyyvan Malone PROF 14(COMP METB)on 022 Albumin [Mass/Vol] 3.1 g/dL Critically low 3.4-5.0 Th [facility] Comment on above: Performed By: #### C MP, CMADM, BNP ####[facility] [address]wvmjxdr[address] [place] [address]Dr. Donna Faisal Albumin/Globulin [Mass ratio] 1.0 {ratio} Normal [facility] Comment on above: Performed By: #### C MP, CMADM, BNP ####[facility] [address]hw[address]emj[address] [place] [address]Dr. Donna Faisal ALP [Catalytic activity/Vol] 37 U/L Critically low 46-116 [facility] Comment on above: Performed By: #### C MP, CMADM, BNP ####[facility] Fautjltrqk24[address] [place] [address]Dr. Donna Malone ALT [Catalytic activity/Vol] 14 U/L Critically low 16-63 [facility] Comment on above: Performed By: #### C MP, CMADM, BNP ####[facility] Kellsufucs[address] [place], [place] [address]Dr. Donna Malone Anion gap [Moles/Vol] 12.3 mmol/L Normal [facility] Comment on above: Performed By: #### C MP, CMADM, BNP ####[facility] Lcslofkdbp[address] [place], [place] [address]Dr. Rubyyvan Malone AST [Catalytic activity/Vol] 12 U/L Critically low 15-37 [facility] Comment on above: Performed By: #### C MP, CMADM, BNP ####[facility] Zv[address]osyvho4[address] [place] [address]Dr. Donna Malone Bilirubin [Mass/Vol] 0.4 mg/dL Normal 0.2-1.0 [facility] Comment on above: Performed By: #### C MP, CMADM, BNP ####[facility] Fswbebncag[address] [place], [place] [address]Dr. Donna Malone Calcium [Mass/Vol] 7.8 mg/dL Critically low 8.5-10.1 [facility] Comment on above: Performed By: #### C MP, CMADM, BNP ####[facility] Yesxpzyale[address] [place], [place] [address]Dr. Donna Malone Chloride [Moles/Vol] 108 mmol/L Critically high 98-107 [facility] Comment on above: Performed By: #### C MP, CMADM, BNP ####[facility] Qnvewgisyf[address] [place] [address]Dr. Donna Malone CO2 [Moles/Vol] 24.8 mmol/L Normal 21.0-32.0 [facility] Comment on above: Performed By: #### C MP, CMADM, BNP ####[facility] T[address]hov[address] [place] [address]Dr. Donna Malone Creatinine [Mass/Vol] 1.83 mg/dL Critically high 0.70-1.30 [facility] Comment on above: Performed By: #### C MP, CMADM, BNP ####[facility] Ezpshfnjnw[address] [place], [place] [address]Dr. Donna Malone EGFR-AF UZBEK 45 mL/min/1.73m2 Critically low >=60 [facility] Comment on above: Performed By: #### C MP, CMADM, BNP ####[facility] Dxwasoolqa[address] [place], [place] [address]Dr. Donna Malone EGFR-NON AF UZBEK 37 mL/min/1.73m2 Critically low >=60 [facility] Comment on above: Performed By: #### C MP, CMADM, BNP ####[facility] Yufipbriqe[address] [place], [place] [address]Dr. Donna Malone Globulin (S) [Mass/Vol] 3.2 g/dL Normal [facility] Comment on above: Performed By: #### C MP, CMADM, BNP ####[facility] Tqpwrcumwg[address] [place] [address]Dr. Donna Malone Glucose [Mass/Vol] 202 mg/dL Critically high 74-106 [facility] Comment on above: Performed By: #### C MP, CMADM, BNP ####[facility] [address]ucsgzsits[address] [place], [place] [address]Dr. Donna Malone Potassium [Moles/Vol] 4.1 mmol/L Normal 3.5-5.1 [facility] Comment on above: Performed By: #### C MP, CMADM, BNP ####[facility] Tqon[address]omxz[address] [place] [address]Dr. Donna Malone Protein [Mass/Vol] 6.3 g/dL Critically low 6.4-8.2 Th e [facility] Comment on above: Performed By: #### C MP, CMADM, BNP ####[facility] Z[address]qzvlq5[address] [place] [address]Dr. Donna Malone Sodium [Moles/Vol] 141 mmol/L Normal 136-145 [facility] Comment on above: Performed By: #### C MP, CMADM, BNP ####[facility] [address]ujwuhfapr264[address] [place] [address]Dr. Donna Malone Urea nitrogen [Mass/Vol] 32.0 mg/dL Critically high 7.0-18.0 [facility] Comment on above: Performed By: #### C MP, CMADM, BNP ####[facility] [address]zpv[address] [place], [place] [address]Dr. Donna Malone Urea nitrogen/Creatinine [Mass ratio] 17.5 mg/mg Normal [facility] Comment on above: Performed By: #### C MP, CMADM, BNP ####[facility] [id number] [place], [place] [address]Dr. Donna Malone PROTIMEon 05-13-2022 INR Coag (PPP) [Relative time] 1.04 {INR} Normal [facility] Comment on above: Performed By: #### P T, PTT ####[facility] [address] [place], [place] [address]Dr. Donna Malone INR GUIDELINES SEE BELOW Normal The [facility] Comment on above: Result Comment: FLORESITA RED INR: 2.0 - 3.0 CONDITIONS NOT LISTED BELOW 2.5 - 3.5 FOR PROSTHETIC HEART VALVE REPLACEMENT 2.5 - 3.5 RECURRENT THROMBOSIS Performed By: #### P T, PTT ####[facility] [id number] [place], [place] [address]Dr. Donna Malone PT Coag (PPP) [Time] 11.2 s Normal 9.0-11.6 [facility] Comment on above: Performed By: #### P T, PTT ####[facility] [id number] [place], [place] [address]Ol. Donna Malone PTTon 05-13-2022 aPTT Coag (Bld) [Time] 27.5 s Normal 22.3-36.2 Th e [facility] Comment on above: Performed By: #### P T, PTT ####[facility] [id number] [place], [place] [address]Hu. Donna Malone XR CHEST 1 Von 05-13-2022 XR CHEST 1 V Normal [facility] Ambulatory Visit Summaryon 0 10-03-2021 Ambulatory Visit Summary PEDRO LUIS MCCLELLAN SRPH Shefali :1955 Visit Date:10/03/2021 Ambulatory Visit Instructions Your Diagnosis Benign localized prostatic hyperplasia without lower urinary tract symptoms (LUTS) Nocturia Urge incontinence Post-void dribbling Your Care Team Attending Physician - Sharad Grossman MD, Lisandro Espinal Primary Care Physician - Genesis Reynolds MD This Is Your Medications List ciprofloxacin (Cipro 500 mg Tab) Contact prescribing physician if questions or concerns acetaminophen acetaminophen-hydrocodone ([place]on[place] 5/325 Tab) amlodipine (amLODIPine 5 mg Tab) [...] [facility] [address], [place] [address]- Medications What How Much When Instructions New ciprofloxacin (Cipro 500 mg Tab) 1 Tablets By Mouth Every day Take 1 tablet the day before the procedure and 1 tablet after the procedure Pickup at [facility] Unchanged acetaminophen 650 Milligram Every 4 hours Contact prescribing physician if questions or concerns Unchanged acetaminophen-hydrocodone ([place] 5/ 325 Tab) 1 Tablets By Mouth [...] physician if questions or concerns Pharmacy Information [facility]: [address] [place] [id number] [phone] (more content not included)... Normal [facility] Ambulatory Visit Summary TAYLOR MCCLELLAN [...] physician if questions or concerns acetaminophen acetaminophen-hydrocodone (Armonk 5/325 Tab) amlodipine (amLODIPine 5 mg Tab) [...] Cysto Where: [facility] [address], [facility] [place] [address]- Medications What How Much When Instructions New ciprofloxacin (Cipro 500 mg Tab) 1 Tablets By Mouth Every day Take 1 tablet the day before the procedure and 1 tablet after the procedure Pickup at [facility] Unchanged acetaminophen 650 Milligram Every 4 hours Contact prescribing physician if questions or concerns Unchanged acetaminophen-hydrocodone (Armonk 5/ 325 Tab) 1 Tablets By Mouth [...] physician if questions or concerns Pharmacy Information [facility]: [address] [place], [place] [id number] [phone] (more content not included)... Normal [facility] Halfway Recordson 10-03 Halfway Records [id number] Normal [facility] Patient Educationon 10-03-19 Patient Education [...] Follow these instructions at home: ? Take [id number] and prescription medicines only as told by [...] You d (more content not included)... Normal [facility] Urology Office/Clinic Noteon 10-03-2021 Urology Office/Clinic Note Chief Complaint This is a 66 year old male in the [place] ER on 09/14/21. This patient has a [...] UroLift 10/30/18. Pt. was seen in the [facility] ER on 09/14/21 due to generalized [...] recently. Family was in the hospital at [place] where he had severe weakness. A Galindo [...] last seen in 2019. Patient was in [facility] 09/14/21 due to weakness and acute [...] dribbling) moderate, (more content not included)... Normal [facility] Comment on above: Result Comment: Elec tronically Signed By: Sharad Grossman MD, Lisandro Espinal\.br\Date and Time Signed: 10/03/21 12:37 EST\.br\Electronically Co-Signed By: Lisandra Arias\.br\Date and Time Co-Signed: 10/03/21 12:32 EST APTTon 10-13-2019 aPTT Coag (Bld) [Time] 34.9 s Normal 25.0-35.0 Th e [facility] Comment on above: Result Comment: ALL [...] THIS PURPOSE. Performed By: #### 5 6101, [id number] #### [address] CREATININE BLOODon 0 Creatinine [Mass/Vol] 1.07 mg/dL Normal 0.70-1.30 [facility] Comment on above: Performed By: #### 2 5656 #### [place] [address], [facility] Creatinine [Mass/Vol] mg/dL Normal >60 [facility] Comment on above: Performed By: #### 2 5656 #### [address] LUMBAR SPINE W CONTRASTon 10-13-2019 CT LUMBAR SPINE W CONTRAST [facility] Department of Radiology [address] [place] [phone] Patient Name: TAYLOR MCCLELLAN : 1955 Sex: M Age: Race: White Pt. Location: 84 Patient Status: O Ordered Date: 09/11/2019 2:50:00 PM Completed Date: 10/13/2019 11:37 AM Requesting Provider: JASEN HOWARD Attending Provider: JASEN HOWARD Report Copy To: LUI BRYSON Signs & Symptoms: M51.36 Other intervertebral disc degeneration, lumbar region I10 History: [place] Need Saturday appointment call [facility] [phone] [facility] auth# [id number] 09/16/19-10/15/19 cpt code 98164 *mla Comments: Exam: CT LUMBAR SPINE W [...] achievable Electronically signed: Fredy Salmeron. Transcribed by: [email or web address], User Resident: Electronically Signed by: FREDY SALMERON @ 10/13/2019 02:08 PM Normal [facility] LUMBAR MYELOGRAMon 0 LUMBAR MYELOGRAM [facility] Department of Radiology [address] [place] [phone] Patient Name: TAYLOR MCCLELLAN : 1955 [...] risks are acceptable. Consent was obtained. Timeout: [place] protocol timeout verification performed. PROCEDURE: Estimated blood [...] reports Electronically signed: Fredy Salmeron. Transcribed by: [email or web address], User Resident: KRISTINE BALLARD Electronically Signed by: FREDY FAVIOLA @ 10/13/2019 06:58 PM I personally read this/these film(s) with this resident Normal The [facility] Comment on above: Order Comment: , , = ========= , Ordering Provider - JASEN HOWARD MD , PROTHROMBIN TIMEon 0 INR Coag (PPP) [Relative time] 1.05 {INR} Normal 0.91-1.16 [facility] Comment on above: Result Comment: ACCC [...] RANGE. CHEST 1995;108:[id number]. Performed By: #### 5 6100, [id number] #### [facility] [address] PT Coag (PPP) [Time] 13.7 s Normal 12.3-14.8 [facility] Comment on above: Result Comment: ALL RESULTS MUST BE INTERPRETED WITH RESPECT TO BLOOD DRAWING ARTIFACT OR DILUTION ERROR OF ANTICOAGULANT AT THE TIME OF SAMPLING. Performed By: #### 5 6101, [id number] #### [facility] [address] [place] [address], [facility] Laboratory Studieson 019 HBV surface Ab Ql (S) Non reactive F [facility] Work Phone: Comment on above: Non Reactive: Incons istent with immunity, less than 10 mIU/mL Reactive: Consistent with immunity, greater than 9.9 mIU/mL HBV surface Ag IA Ql Negative [facility] Work Phone: Comment on above: Performed at: [place] [id number] Seismographer: Arnold Cabral PhD, Phone: [phone] HCV Ab Signal/Cutoff IA RelACnc 0.1 s/co ratio [facility] Work Phone: Hepatitis C Antibody Comment See comment [facility] Work Phone: Comment on above: Non reactive HCV ant ibody screen is consistent with no HCV infection, unless recent infection is suspected or other evidence exists to indicate HCV infection. HIV 1+2 Ab IA Ql Nonreactive [facility] Work Phone: Laboratory Studieson 018 Glucose mass conc Glu2: cleaned meter [facility] Work Phone: Glucose mass conc 121 mg/dL [facility] Work Phone: Comment on above: Random Glucose Refer ence Range is dependent on time and content of last meal. Glucose of more than 200 mg/dL in a nonstressed, ambulatory subject supports the diagnosis of Diabetes Mellitus. Calcium mass conc 8.7 mg/dL 8.2-10.2 [facility] Work Phone: Chloride molar conc 102 mmol/L 95-114 [facility] Work Phone: CO2 molar conc 27.5 mmol/L 22.0-30.0 [facility] Work Phone: Creatinine mass conc 1.08 mg/dL 0.64-1.27 [facility] Work Phone: GFR/1.73 sq M predicted among blacks MDRD vol rate/area (S/P/Bld) mL/min/{1.73_m2} [facility] Work Phone: Comment on above: GFR estimated refere nce range: According to KDOQI guidelines, <60 ml/min/1.73m2 is sufficient to diagnose a patient with chronic kidney disease. GFR/1.73 sq M predicted among non-blacks MDRD vol rate/area (S/P/Bld) mL/min/{1.73_m2} [facility] Work Phone: Glucose mass conc 86 mg/dL 70-100 [facility] Work Phone: Comment on above: ADA recommended refe rence range Random Glucose Reference Range is dependent on time and content of last meal. Glucose of more than 200 mg/dL in a nonstressed, ambulatory subject supports the diagnosis of Diabetes Mellitus. Pharmacy Creatinine Clearance (Chem [phone] [facility] Work Phone: Potassium molar conc 3.5 mmol/L 3.5-5.1 [facility] Work Phone: Sodium molar conc 139 mmol/L 136-146 [facility] Work Phone: Urea nitrogen mass conc 10 mg/dL 9-23 [facility] Work Phone: Laboratory Studieson 018 Basophils #/vol (Bld) 0.1 10*3/uL 0.0-0.2 [facility] Work Phone: Basophils/100 WBC (Bld) 1.0 % [facility] Work Phone: Eosinophils #/vol (Bld) 0.2 10*3/uL 0.0-0.45 [facility] Work Phone: Eosinophils/100 WBC (Bld) 2.8 % [facility] Work Phone: Erythrocyte distribution width Ratio (RBC) 13.9 % 12.0-14.8 [facility] Work Phone: Hematocrit Volume Fraction (Bld) 36.3 % Low 38.8-50.0 [facility] Work Phone: Hemoglobin mass conc (Bld) 12.5 g/dL Low 13.0-17.0 [facility] Work Phone: Lymphocytes #/vol (Bld) 1.6 10*3/uL 1.00-4.8 [facility] Work Phone: Lymphocytes/100 WBC (Bld) 23.7 % [facility] Work Phone: MCH Entitic mass (RBC) 28.9 pg 27.5-35.2 [facility] Work Phone: MCHC mass conc (RBC) 34.3 g/dL 32.5-35.6 [facility] Work Phone: MCV Entitic volume (RBC) 84.4 fL 83.5-101 [facility] Work Phone: Monocytes #/vol (Bld) 0.4 10*3/uL 0.0-0.8 [facility] Work Phone: Monocytes/100 WBC (Bld) 6.7 % [facility] Work Phone: Neutrophils #/vol (Bld) 4.4 10*3/uL 1.8-7.7 [facility] Work Phone: Neutrophils/100 WBC (Bld) 65.8 % [facility] Work Phone: Platelet mean volume Entitic volume (Bld) 10.3 fL High 6.6-10.1 [facility] Work Phone: Platelets #/vol (Bld) 199 10*3/uL 150-450 [facility] Work Phone: RBC #/vol (Bld) 4.31 10*6/uL 3.90-5.60 [facility] Work Phone: WBC #/vol (Bld) 6.6 10*3/uL 4.1-10.5 [facility] Work Phone: Laboratory Studieson 018 Appearance Nom (U) Slightly cloudy Abnormal F [facility] Work Phone: Bacteria Auto Ql (U) None seen [facility] Work Phone: Bilirubin Ql (U) Negative [facility] Work Phone: Color Nom (U) Yellow [facility] Work Phone: Creatinine mass conc (U) 143.4 mg/dL [facility] Work Phone: Comment on above: No reference range e stablished Epithelial cells Auto #/area (Urine sed) Rare /HPF [facility] Work Phone: Glucose Automated test strip mass conc (U) Normal mg/dL [facility] Work Phone: Hemoglobin Automated test strip Ql (U) 1+ High [facility] Work Phone: Ketones mass conc (U) 1+ High [facility] Work Phone: Leukocyte esterase Automated test strip Ql (U) Negative [facility] Work Phone: Nitrite Automated test strip Ql (U) Negative [facility] Work Phone: pH (U) 5.5 [pH] 5.0-9.0 [facility] Work Phone: pH (U) [pH] 1.001-1.03 0 [facility] Work Phone: Protein mass conc (U) Negative [facility] Work Phone: RBC Auto #/area (Urine sed) 1-2 /HPF [facility] Work Phone: Sodium molar conc (U) 144.0 mmol/L F [facility] Work Phone: Comment on above: No reference range e stablished Urate crystals LM.HPF #/area (Urine sed) 3 /[HPF] [facility] Work Phone: Urobilinogen mass conc (U) Normal mg/dL [facility] Work Phone: WBC Auto #/area (Urine sed) None seen /HPF [facility] Work Phone: Albumin mass conc 2.7 g/dL Low 3.2-5.5 [facility] Work Phone: Albumin/Globulin mass ratio 0.8 {ratio} [facility] Work Phone: ALP enzyme act/vol 39 U/L 32-92 [facility] Work Phone: ALT No additional P-5'-P enzyme act/vol 14 U/L 10-60 [facility] Work Phone: AST enzyme act/vol 25 U/L 10-42 [facility] Work Phone: Bilirubin mass conc 0.6 mg/dL 0.3-1.2 [facility] Work Phone: Globulin mass conc (S) 3.6 g/dL [facility] Work Phone: Protein mass conc 6.3 g/dL 6.1-7.9 [facility] Work Phone: Laboratory Studieson 018 T3 free mass conc 3.28 pg/mL 2.50-3.90 [facility] Work Phone: T4 free mass conc 0.95 ng/dL 0.61-1.12 [facility] Work Phone: Amphetamines Ql (U) Negative [facility] Work Phone: Barbiturates Ql (U) Negative [facility] Work Phone: Benzodiazepines Ql (U) Positive [facility] Work Phone: Cannabinoids Screen Ql (U) Negative [facility] Work Phone: Comment on above: These are unconfirme d results and should not be used for legal purposes. Drug Cut-Off Concentration: AMPH 1000 ng/mL EWA 200 ng/mL JOHN 200 ng/mL COCM 300 ng/mL OP 300 ng/mL PCP 25 ng/mL THC 20 ng/mL Cocaine Ql (U) Negative [facility] Work Phone: Opiates Ql (U) Positive High [facility] Work Phone: Phencyclidine Ql (U) Negative [facility] Work Phone: Ammonia mass conc (Unsp spec) 20 umol/L 11-35 [facility] Work Phone: Bilirubin.direct mass conc 0.2 mg/dL 0.0-0.4 [facility] Work Phone: Bilirubin.indirect mass conc 0.8 mg/dL [facility] Work Phone: Cobalamin (Vitamin B12) mass conc 365 pg/mL 180-914 [facility] Work Phone: Folate mass conc 12.4 ng/mL [facility] Work Phone: Comment on above: Folate reference ran ge: >5.9 ng/ml The WHO technical consultation on folate and vitamin b12 deficiencies has determined that folate concentrations less than 4 ng/ml are considered deficient. Magnesium molar conc (Unsp spec) 1.7 mg/dL 1.6-2.6 [facility] Work Phone: Thyrotropin Qn 0.20 uIU/mL Low 0.45-5.33 [facility] Work Phone: Comment on above: Revised TSH Assay This assay is standardized to the World Health Organization International Standard for human TSH. Please note Reference Intervals have changed. Laboratory Studieson 018 Casts LM Nom (Urine sed) N/A [facility] Work Phone: Epithelial cells.renal LM.HPF #/area (Urine sed) Rare /HPF [facility] Work Phone: Hyaline casts Auto #/vol (U) 20-49 /LPF High [facility] Work Phone: Lactate molar conc (U) 0.9 mmol/L [facility] Work Phone: CK enzyme act/vol 107 U/L 22-269 [facility] Work Phone: Phosphate mass conc 5.0 mg/dL High 2.5-4.6 [facility] Work Phone: Laboratory Studieson 017 Glucose mass conc 122 mg/dL [facility] Work Phone: Comment on above: RANDOM GLUCOSE REFER ENCE RANGE IS DEPENDENT ON TIME AND CONTENT OF LAST MEAL.GLUCOSE OF MORE THAN 200MG/DL IN A NONSTRESSED,AMBULATORY SUBJECT SUPPORTS THE DIAGNOSIS OF DIABETES MELLITUS. Laboratory Studieson 017 Basophils #/vol (Bld) 0.1 10*3/uL 0.0-0.2 [facility] Work Phone: Basophils/100 WBC (Bld) 0.9 % [facility] Work Phone: Calcium mass conc 8.6 mg/dL 8.2-10.2 [facility] Work Phone: Chloride molar conc 109 mmol/L 95-114 [facility] Work Phone: CK enzyme act/vol 355 U/L High 22-269 [facility] Work Phone: CO2 molar conc 19.5 mmol/L Low 22.0-30.0 [facility] Work Phone: Creatinine mass conc 0.99 mg/dL 0.64-1.27 [facility] Work Phone: Eosinophils #/vol (Bld) 0.20 10*3/uL 0.0-0.45 [facility] Work Phone: Eosinophils/100 WBC (Bld) 3.3 % [facility] Work Phone: Erythrocyte distribution width Ratio (RBC) 13.8 % 12.0-14.8 [facility] Work Phone: Estimated GFR (Non- > 60 [facility] Work Phone: GFR/1.73 sq M.predicted MDRD (S/P/Bld) [Vol rate/Area] mL/min/{1.73_m2} [facility] Comment on above: GFR estimated refere nce range: According to KDOQI guidelines, <60 ml/min/1.73m2 is sufficient to diagnose a patient with chronic kidney disease. GFR/1.73 sq M.predicted MDRD vol rate/area mL/min/{1.73_m2} [facility] Work Phone: Comment on above: GFR estimated refere nce range: According to KDOQI guidelines, <60 ml/min/1.73m2 is sufficient to diagnose a patient with chronic kidney disease. Glucose mass conc 94 mg/dL 70-100 [facility] Work Phone: Comment on above: ADA RECOMMENDED REFE RENCE RANGE Hematocrit Volume Fraction (Bld) 41.5 % 38.8-50.0 [facility] Work Phone: Hemoglobin mass conc (Bld) 14.1 g/dL 13.0-17.0 [facility] Work Phone: Lymphocytes #/vol (Bld) 2.6 10*3/uL 1.00-4.8 [facility] Work Phone: Lymphocytes/100 WBC (Bld) 40.3 % [facility] Work Phone: MCH Entitic mass (RBC) 30.4 pg 27.5-35.2 [facility] Work Phone: MCHC mass conc (RBC) 34.1 g/dL 32.5-35.6 [facility] Work Phone: MCV Entitic volume (RBC) 89.2 fL 83.5-101 [facility] Work Phone: Monocytes #/vol (Bld) 0.4 10*3/uL 0.0-0.8 [facility] Work Phone: Monocytes/100 WBC (Bld) 6.4 % [facility] Work Phone: Neutrophils #/vol (Bld) 3.1 10*3/uL 1.8-7.7 [facility] Work Phone: Neutrophils (%) (Auto) 49.1 % [facility] Work Phone: Neutrophils/100 WBC (Bld) 49.1 % [facility] Platelet mean volume Entitic volume (Bld) 10.7 fL High 6.6-10.1 [facility] Work Phone: Platelets #/vol (Bld) 160 10*3/uL 150-450 [facility] Work Phone: Potassium molar conc 3.4 mmol/L Low 3.5-5.1 [facility] Work Phone: RBC #/vol (Bld) 4.65 10*6/uL 3.90-5.60 [facility] Work Phone: Sodium molar conc 138 mmol/L 136-146 [facility] Work Phone: Urea nitrogen mass conc 7 mg/dL Low 9-23 [facility] Work Phone: WBC #/vol (Bld) 6.4 10*3/uL 4.1-10.5 [facility] Work Phone: Laboratory Studieson 017 Platelet Aggregation (ADP) 57.8 % 0-100 [facility] Work Phone: Comment on above: NO REFERENCE RANGE I S ESTABLISHED OR APPLICABLE Platelet Inhibition ADP 42.2 % 0-100 [facility] Work Phone: Comment on above: NO REFERENCE RANGE I S ESTABLISHED OR APPLICABLE TEG Max Amplitude (Citrated) 69.9 mm 50-70 [facility] Work Phone: TEG Max Amplitude (Rapid) 29.9 0-90 [facility] Work Phone: Comment on above: TEG MA A HAS NO REFE RENCE RANGE Thrombelastograph (TEG) Net G ADP 53.0 MM 0-90 [facility] Work Phone: Comment on above: TEG MA ADP HAS NO RE FERENCE RANGE Albumin mass conc 3.1 g/dL Low 3.2-5.5 [facility] Work Phone: Albumin/Globulin mass ratio 1.0 {ratio} [facility] Work Phone: ALP enzyme act/vol 44 U/L 32-92 [facility] Work Phone: ALT enzyme act/vol 18 U/L 10-60 [facility] Work Phone: AST enzyme act/vol 27 U/L 10-42 [facility] Work Phone: Bilirubin Ql (U) 0.6 mg/dL 0.3-1.2 [facility] Work Phone: Bilirubin.direct mass conc 0.1 mg/dL 0.0-0.4 [facility] Work Phone: Bilirubin.indirect mass conc (Body fld) 0.5 mg/dL [facility] Work Phone: Cholesterol in HDL mass conc 26 mg/dL Low 29-71 [facility] Work Phone: Comment on above: HDL CHOL ATP-III CLA SSIFICATION Cardiovascular Risk HDL > or equal to 60 mg/dL Low HDL < 40 mg/dL High Cholesterol mass conc 150 mg/dL 140-200 [facility] Work Phone: Comment on above: CHOL less than 200 m g/dL Low risk CHOL 201-239 mg/dL Borderline risk CHOL 240 mg/dL and greater High risk Cholesterol mass conc 30 mg/dL [facility] Work Phone: Cholesterol.total/Chol esterol in HDL mass ratio 5.8 {ratio} [facility] Work Phone: Globulin mass conc (S) 3.2 g/dL [facility] Work Phone: LDL Cholesterol, Calculated 93 mg/dL 0-100 [facility] Work Phone: Comment on above: LDL ATP III CLASSIFI CATION LDL less than 100 mg/dL Optimal LDL 100-129 mg/dL Near or above optimal LDL 130-159 mg/dL Borderline high LDL 160-189 mg/dL High LDL greater than 189 mg/dL Very high Protein mass conc 6.3 g/dL 6.1-7.9 [facility] Work Phone: Thyrotropin Qn 1.12 uIU/mL 0.45-5.33 [facility] Work Phone: Comment on above: Revised TSH Assay This assay is standardized to the World Health Organization International Standard for human TSH. Please note Reference Intervals have changed. Triglyceride mass conc 153 mg/dL High 35-149 [facility] Work Phone: Comment on above: TRIG ATP III CLASSIF ICATION TRIG less than 150 mg/dL Normal TRIG 150-199 mg/dL Borderline high TRIG 200-500 mg/dL High TRIG greater than 500 mg/dL Very high Standard traceable to the Center for Disease Conrtrol and Prevention (CDC) test method. Laboratory Studieson 017 Glucose mass conc Glu2: cleaned meter [facility] Work Phone: Ammonia mass conc (P) 19 umol/L 11-35 [facility] Work Phone: Cobalamin (Vitamin B12) mass conc 202 pg/mL 180-914 [facility] Work Phone: Folate 10.7 ng/mL [facility] Work Phone: Comment on above: FOLATE REFERENCE RAN GE: >5.9 ng/mL The WHO Technical Consultation on folate and vitamin B12 deficiencies has determined that folate concentrations less than 4 ng/mL are considered deficient. Amphetamines Ql (U) Negative [facility] Work Phone: Appearance Nom (U) Clear [facility] Work Phone: Bacteria LM.HPF #/area (Urine sed) None seen [facility] Work Phone: Benzodiazepines Ql (U) Positive High [facility] Work Phone: Bilirubin Ql (U) Negative [facility] Work Phone: Cocaine Ql (U) Negative [facility] Work Phone: Color Nom (U) Yellow [facility] Work Phone: Epithelial cells.squamous LM.HPF #/area (Urine sed) 5-9 /hpf High [facility] Work Phone: Glucose mass conc (U) 250 mg/dL High [facility] Work Phone: Hyaline casts LM Ql (Urine sed) 0-8 /lpf [facility] Work Phone: Ketones Ql (U) Trace [facility] Work Phone: Leukocyte esterase Test strip Ql (U) Negative [facility] Work Phone: Nitrite Ql (U) Negative [facility] Work Phone: Opiates Ql (U) Negative [facility] Work Phone: pH (U) 5.0 [pH] 5.0-9.0 [facility] Work Phone: Phencyclidine Ql (U) Negative [facility] Work Phone: Protein Ql (U) Negative [facility] Work Phone: RBC #/vol (U) 50-100 /hpf [facility] Work Phone: Specific gravity Relative Density (U) 1.039 High 1.001-1.03 0 [facility] Work Phone: Urine Barbiturates Screen Negative [facility] Work Phone: Urine Collection Type Type [facility] Work Phone: Comment on above: CATHETERIZED Urine Drug Screen Comment See comment [facility] Work Phone: Comment on above: THESE ARE UNCONFIRME D RESULTS AND SHOULD NOT BE USED FOR LEGAL PURPOSES. DRUG CUT-OFF CONCENTRATION: AMPH 1000 ng/mL EWA 200 ng/mL JOHN 200 ng/mL COCM 300 ng/mL OP 300 ng/mL PCP 25 ng/mL THC 20 ng/mL Urine Marijuana (THC) Screen Negative [facility] Work Phone: Urine Occult Blood 3+ High [facility] Work Phone: Urine Transitional Epithelial Cells 3-4 /hpf [facility] Work Phone: Urobilinogen Qn (U) Normal mg/dL [facility] Work Phone: WBC #/vol (U) 0-1 /hpf [facility] Work Phone: Bedside Ionized Calcium (Deepti) 1.22 mmol/L 1.12-1.32 [facility] Work Phone: Bedside Total CO2 23 mmol/L 23-29 [facility] Work Phone: Chloride molar conc 110.0 mmol/L High 98-109 [facility] Work Phone: Creatinine mass conc 1.2 mg/dL 0.6-1.3 [facility] Work Phone: Comment on above: ER/ESD PHYSICIAN IS NOTIFIED/SHOWN ALL ISTAT RESULTS. CRITICAL VALUES MAY BE CONFIRMED BY LABORATORY TESTING IF DEEMED NESCESSARY BY ER ATTENDING DOCTOR Glucose mass conc 135 mg/dL High 70-105 [facility] Work Phone: Hematocrit Volume Fraction (Bld) 48.0 % 38.0-51.0 [facility] Work Phone: Hemoglobin mass conc (Bld) 16.3 g/dL 12.0-17.0 [facility] Work Phone: Potassium molar conc 4.7 mmol/L 3.5-4.9 [facility] Work Phone: Sodium molar conc 144 mmol/L 138-146 [facility] Work Phone: Urea nitrogen mass conc 15 mg/dL 8-26 [facility] Work Phone: Amylase enzyme act/vol 39 U/L 28-100 [facility] Work Phone: CK.MB mass conc 9.5 ng/mL High 0.6-6.3 [facility] Work Phone: Creatine Kinase MB Relative Index 1.5 0.00-2.50 [facility] Work Phone: Ethyl Alcohol Level < 5 mg/dL [facility] Work Phone: Glucose mass conc 140 mg/dL High 70-100 [facility] Work Phone: Comment on above: RANDOM GLUCOSE REFER ENCE RANGE IS DEPENDENT ON TIME AND CONTENT OF LAST MEAL.GLUCOSE OF MORE THAN 200MG/DL IN A NONSTRESSED,AMBULATORY SUBJECT SUPPORTS THE DIAGNOSIS OF DIABETES MELLITUS. Lipase enzyme act/vol 22.0 U/L 22-51 [facility] Work Phone: Percent Ethyl Alcohol < 0.005 % [facility] Work Phone: Troponin I.cardiac mass conc ng/mL 0-0.02 [facility] Work Phone: Comment on above: DAMARIS CT Cut off value > or equal to 0.03 ng/mL in conjunction with clinical conditions of myocardial infarction. (www.escardio.org/guidelines) Glucose mass conc 134 mg/dL [facility] Work Phone: Hemoglobin A1c/Hemoglobin.total mass fraction (Bld) 6.3 % High 4.3-5.6 [facility] Work Phone: Comment on above: Increased risk for d iabetes: 5.7 - 6.4 Diabetes: >6.4 Glycemic control for adults with diabetes: <7.0 Vital Signs Date Time Vital Sign Value Performing Clinician Facility 11-05-2022 14:30-0500 Diastolic blood pressure 72 mm[Hg] [address] Other [employer] Other 11-05-2022 14:30-0500 SaO2% (BldA) [Mass fraction] 97 % [address] Other [employer] Other 11-05-2022 14:30-0500 Systolic blood pressure 118 mm[Hg] [address] Other [employer] Other 10-18-2022 14:00-0500 Body weight 96.71 kg Benson Domingo Other [employer] Other 10-18-2022 14:00-0500 Diastolic blood pressure 64 mm[Hg] [address] Other [employer] Other 10-18-2022 14:00-0500 SaO2% (BldA) [Mass fraction] 98 % Benson Domingo Other [employer] Other 10-18-2022 14:00-0500 Systolic blood pressure 120 mm[Hg] [address] Other [employer] Other 07-20-2022 16:00-0500 Body temperature 97.4 [degF] MD Genesis Reynolds Work Phone: [facility] 07-20-2022 16:00-0500 Diastolic blood pressure 72 mm[Hg] MD Genesis Reynolds Work Phone: [facility] 07-20-2022 16:00-0500 Heart rate 61 /min MD Genesis Reynolds Work Phone: [facility] 07-20-2022 16:00-0500 Respiratory rate 16 /min MD Genesis Reynolds Work Phone: [facility] 07-20-2022 16:00-0500 SaO2% (BldA) [Mass fraction] 98 % MD Genesis Reynolds Work Phone: [facility] 07-20-2022 16:00-0500 Systolic blood pressure 159 mm[Hg] MD Genesis Reynolds Work Phone: [facility] 07-20-2022 06:00-0500 Body weight 95.3 kg MD Genesis Reynolds Work Phone: [facility] 07-18-2022 11:22-0500 Body height 177.8 cm MD Genesis Reynolds Work Phone: [facility] 07-17-2022 22:14-0500 Body height 177.8 cm MD Genesis Reynolds Work Phone: [facility] 07-17-2022 22:14-0500 Body temperature 97.5 [degF] MD Genesis Reynolds Work Phone: [facility] 07-17-2022 22:14-0500 Body weight 95.9 kg MD Genesis Reynolds Work Phone: [facility] 07-17-2022 22:14-0500 Diastolic blood pressure 87 mm[Hg] MD Genesis Reynolds Work Phone: [facility] 07-17-2022 22:14-0500 Heart rate 74 /min MD Genesis Reynolds Work Phone: [facility] 07-17-2022 22:14-0500 Respiratory rate 16 /min MD Genesis Reynolds Work Phone: [facility] 07-17-2022 22:14-0500 SaO2% (BldA) [Mass fraction] 99 % MD Genesis Reynolds Work Phone: [facility] 07-17-2022 22:14-0500 Systolic blood pressure 180 mm[Hg] MD Genesis Reynolds Work Phone: [facility] 02-13-2018 14:12-0400 Body Temperature 98 [degF] [facility] 02-13-2018 14:12-0400 BP Diastolic 74 mm[Hg] Bro Srivastavajudy [facility] 02-13-2018 14:12-0400 BP Systolic 113 mm[Hg] Bro Sanford [facility] 02-13-2018 14:12-0400 Pulse Oximetry 95 % Bro [facility] 02-13-2018 14:12-0400 Respiratory Rate 18 /min [facility] 02-11-2018 22:00-0400 Pulse (Heart Rate) 73 /min [facility] NEGATED: Highlighted row BMI (Body Mass Index) [facility] NEGATED: Highlighted row BMI (Body Mass Index[facility] NEGATED: Highlighted row Height [facility]: Highlighted row Height Bro Ashtonpetersonjudy [facility] Encounters Encounter Date Encounter Type Care Provider Facility Start: 06-24-2024 End: 06-25-2024 Refill Vianey Zaldivar MD Work Phone: [facility] Comment on above: Primary hypertension (CMS/HCC) (Primary Dx) Start: 05-04-2024 ambulatory GENESIS Hai [facility] Start: 04-30-2024 ambulatory GENESIS M [facility] Start: 04-29-2024 End: 05-04-2024 Emergency department patient visit GENESIS Valles [facility] Start: 03-26-2024 End: 03-26-2024 ambulatory [facility] Start: 02-25-2024 End: 02-25-2024 ambulatory [facility] Start: 02-17-2024 End: 02-17-2024 ambulatory [facility] Start: 02-17-2024 End: 02-17-2024 Encounter for other preprocedural examination [facility] Start: 11-10-2023 End: 11-11-2023 ambulatory SUSAN URIOSTEGUI [facility] Start: 11-10-2023 End: 11-10-2023 Subsequent hospital visit by physician Bro Sanford MD Work Phone: [facility] Start: 04-26-2023 End: 04-27-2023 ambulatory EBENEZER HOPKINS [facility] Start: 04-25-2023 End: 04-26-2023 Emergency department patient visit BRO SANFORD [facility] Start: 04-19-2023 ambulatory Danilo Hayes acility:[facility] Start: 01-17-2023 End: 01-17-[address] GENESIS REYNOLDS . Facility:[facility] Start: 12-06-2022 End: 12-06-[address] Other [employer] Other Start: 12-06-[address] [facility] St[facility] Start: 11-15-2022 End: 11-17-2022 Evaluation and management of inpatient DR GENESIS REYNOLDS . Facility:[facility] Start: 11-13-2022 End: 11-13-[address] Other [employer] Other Start: 11-13-[address] [facility] Start: 11-05-2022 End: 11-05-2022 ambulatory Benson Domingo Other [employer] Other Start: 11-05-2022 Office outpatient vi sit 15 minutes Benson Domingo [facility] Start: 11-01-2022 End: 11-01-2022 ambulatory Genesis Reynolds Facility:[facility] Start: 11-01-2022 End: 11-01-2022 ambulatory MD Genesis Reynolds Work Phone: [facility] Work Phone: Start: 11-01-2022 End: 11-01-2022 Patient encounter procedure MD Genesis Reynolds Work Phone: [facility] Work Phone: Start: 10-26-2022 End: 10-27-[address] GENESIS REYNOLDS . Facility:[facility] Start: 10-25-2022 (PROC) PROCEDURE [address] [facility] Start: 10-25-2022 End: 10-26-[address] GENESIS REYNOLDS . [employer] Other Start: 10-18-2022 End: 10-18-2022 ambulatory Benson Mcdowellky Other [employer] Other Start: 10-18-2022 Office outpatient ne w [...] of inpatient MD Genesis Reynolds Work Phone: [facility] [place] [facility] Start: 07-17-2022 End: 07-20-2022 observation encounter MD Genesis Reynolds Work Phone: [facility] Work Phone: Start: 07-15-2022 End: 07-16-[address] GENESIS REYNOLDS . Facility:[facility] Start: 06-21-2022 End: 06-22-[address] GENESIS REYNOLDS . Facility:[facility] Start: 05-13-2022 End: 05-16-2022 Evaluation and management of inpatient DR GENESIS REYNOLDS . Facility:[facility] Start: 05-07-[address] GENESIS REYNOLDS . Facili ty:[facility] Start: 12-17-2019 Preoperative state MD Genesis Reynolds Work Phone: [facility] Start: 12-24-2018 End: 12-24-2018 [address] Bro [facility] Start: 02-08-2018 End: 02-13-2018 [facility] Start: 01-12-2018 End: 01-17-2018 Evaluation [facility] management [facility] Start: 04-02-2017 End: 04-05-2017 [facility] management [facility] Start: 06-09-2006 End: 07-09-2006 Discharged [facility] Start: 04-09-2006 End: 05-09-2006 Discharged [facility] Start: 03-09-2006 End: 04-08-2006 Discharged [facility] Start: 02-22-2006 End: 03-08-2006 Discharged [facility] Start: 02-10-2006 End: 02-14-2006 Evaluation and management of inpatient [facility] Start: 05-10-2000 End: 06-08-2000 Discharged [facility]ring [facility] Start: 04-09-2000 End: 05-09-2000 Discharged [facility]ring [facility] Start: 03-09-2000 End: 04-08-2000 Discharged [facility]ring [facility] Start: 02-08-2000 End: 03-08-2000 Discharged [facility]ring [facility] Start: 01-08-2000 End: 02-07-2000 Discharged [facility] Start: 12-09-1999 End: 02-07-2000 Discharged Recurring [facility] Start: 11-08-1999 End: 12-08-1999 Discharged [facility]ring [facility] Start: 10-10-1999 End: 11-07-1999 Discharged Recurring [facility] Start: 09-09-1999 End: 10-09-1999 Discharged Recurring Bro Sanford [facility] Start: 08-09-1999 End: 10-09-1999 Discharged Recurring Bro Sanford [facility] Start: 07-10-1999 End: 08-08-[address] [facility] Start: 06-26-1999 End: 07-09-1999 Discharged [facility] Start: 03-29-1998 End: 03-29-1998 Patient encounter procedure [facility] Start: 02-24-1987 End: 02-28-1987 Evaluation and management of inpatient [facility] Start: 12-22-1986 End: 12-23-1986 Evaluation and management of inpatient [facility] Procedures Date Procedure Procedure Detail Performing Clinician Start: 11-10-2023 Urnls dip stick/tabl et reagent auto microscopy Susan Uriostegui [employer] - 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 Work Phone: Start: 11-01-2022 X-ray of lumbar [...] - Tdap) DTaP/Tdap/Td vaccine (2 - Tdap) [facility] Start: 05-10-2024 Influenza vaccination Influenza Vacc ine (#1) [facility] Start: 04-26-2024 Lipid panel Lipids [facility] Start: 04-25-2024 GFR test (Diabetes, CKD 3-4, OR last GFR 15-59) GFR test (Diabetes, CKD 3-4, OR last GFR 15-59) [facility] Start: 08-05-2023 Annual Wellness Visi t (Medicare) Annual Wellness Visit (Medicare) [facility] Start: 05-10-2023 COVID-19 Vaccine ( season) COVID-19 Vaccine ( season) [facility] Start: 04-09-2023 Influenza vaccination Flu vaccine (# 1) [facility] Start: 07-20-2022 [facility] Start: 07-18-2022 Lipid panel [facility] Start: 07-17-2022 Hospital admission [facility] Start: 07-17-2022 Physical therapy procedure [facility] Start: 07-17-2022 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 [facility] Start: 07-17-2022 Referral to occupational therapist [facility] Start: 07-17-2022 [facility] Start: 07-17-2022 [facility] Start: 11-29-2021 Pneumococcal Vaccine : 65+ Years (2 of 2 - PPSV23 or PCV20) Pneumococcal Vaccine: 65+ Years (2 of 2 - PPSV23 or PCV20) [facility] Start: 2021 Abdominal aortic aneurysm screening AAA screen [facility] Start: 01-24-2021 Pneumococcal 65+ yea rs Vaccine (2 - PPSV23 or PCV20) Pneumococcal 65+ years Vaccine (2 - PPSV23 or PCV20) [facility] [employer] Start: 2016 Respiratory Syncytia l Virus (RSV) or age 60 yrs+ (1 - 1-dose 60+ series) Respiratory Syncytial Virus (RSV) or age 60 yrs+ (1 - 1-dose 60+ series) [facility] Start: 2006 Screening for malign ant neoplasm of lung Low dose CT lung screening &/or counseling [facility] Start: 2006 Shingles vaccine (1 of 2) Shingles vaccine (1 of 2) [facility] Start: 2001 Screening for malign ant neoplasm of colon [facility] Start: 1974 Glaucoma screening Diabetic retinal exam [facility] Start: 1974 Hepatitis C screening Hepatitis C sc reen [facility] Start: 1974 Urine screening for protein Diabetic Alb to Cr ratio (uACR) test [facility] [employer] Start: 1968 Depression Screen Depression Screen [facility] Start: 1966 Diabetic foot examination Diabetic foot exam [facility] Start: 1966 Hemoglobin A1c measurement A1C test (Diabetic or Prediabetic) [facility] Start: 1956 Screening for malign ant neoplasm of colon [facility] Healthcare Bacteria identified in Blood by Culture Blood Culture [facility] Blood culture for bacteria, including anaerobic screen Blood Culture [facility] End: 11-10-2023 Culture, Urine [facility] Work Phone: Comment on above: Once for 1 Occurrenc es starting 11/10/2023 until 11/10/2023 Patient referral [facility] Work Phone: [facility] Immunizations Immunization Date Immunization Notes Care Provider [facility] 06-23-2021 influenza virus vacc ine, unspecified formulation Vianey Zaldivar MD Work Phone: [facility] Healthcare Payers Date Payer Category Payer Self-pay 2021 Medicare MEDICARE [id number] 2011 [facility] Mem er [id number] 2009 Unknown [id number] 1959 Medicare [id number] 1959 Unknown [id number] 1956 Unknown [id number] 2.840.1.017824.3.57 9.2.593 1956 Unknown [id number] 2.16840.1.335723.3.57 9.2.593 1956 Unknown [id number] 2.16840.1.859343.3.57 9.2.593 1956 Unknown [id number] 2.840.1.790436.3.57 9.2.593 1956 Unknown [id number] 2.16840.1.420757.3.57 9.2.593 1956 Unknown [id number] 2.16840.1.693112.3.57 9.2.593 1956 Unknown [id number] 2.16840.1.163237.3.57 9.2.593 1956 Unknown [id number] 2.16840.1.419939.3.57 9.2.593 1956 Unknown [id number] 2.16.840.1.243173.3.57 9.2.593 1956 Unknown [id number] 2.16.840.1.854995.3.57 9.2.593 1956 Unknown [id number] 2.16.840.1.489755.3.57 9.2.356 1956 Unknown [id number] 2.16.840.1.789269.3.57 9.2.356 1956 Unknown [id number] 2.16.840.1.383101.3.57 9.2.356 1956 Unknown [id number] 2.16.840.1.582503.3.57 9.2.356 1956 Unknown [id number] 2.16.840.1.433311.3.57 9.2.356 1956 Unknown [id number] 2.16.840.1.449581.3.57 9.2.356 1956 Unknown [id number] 2.16.840.1.068796.3.57 9.2.173 1956 Unknown [id number] 2.16.840.1.614337.3.57 9.2.1286 1956 Unknown [id number] 2.16.840.1.036188.3.57 9.2.1286 1956 Unknown [id number] 2.16.840.1.134425.3.57 9.2.1286 1956 Unknown [id number] 2.16.840.1.373981.3.57 9.2.1286 Unknown [facility] [employer] [id number] Unknown [id number] 2.16.840.1.462354.3.57 9.2.531 Unknown [id number] 2.16.840.1.346840.3.57 9.2.531 Social History Date Type Detail Facility Start: 07-17-2022 End: 07-18-2022 Tobacco smoking status NHIS Smoker (finding) [facility] Start: 1955 Sex Assigned At Male [facility] Start: 04-25-2023 Sex Assigned At [facility] [employer] Other Start: 12-26-2016 Tobacco smoking status PRIS Smokes tobacco daily [facility] [employer] History of tobacco use Cigarette Smoker B ON [employer] Start: 12-26-2016 End: 04-25-2023 Cigarettes smoked current (pack per day) - Reported 1.5 BON [employer] Start: 12-26-2016 Tobacco use and exposure Smokeless tobacco non-user [facility] [employer] Start: 04-25-2023 Alcohol intake Current non-drinker of alcohol (finding) [facility] [employer] Start: 1955 Sex Assigned At Not on file [facility] [employer] [facility] Medical Equipment Procedure Code Equipment Code Equipment Origin al Text Equipment Identifier Dates [id number] Start: 12-24-2018 End: 04-11-2019 Glucose test strips [...] function Cognitive Sta tus Patient at Baseline [facility] Work Phone: Clinical Notes 2018 to 06-25-2024 Telephone Encounter - Susan Uriostegui NP - 06/25/2024 5:07 PM EDTTelephone Encounter - Susan Uriostegui NP - 06/25/2024 5:07 PM EDT Note Date & Type Note Facility 06-25-2024 Telephone encount er Note Rx for losartan is sent. [facility] 06-25-2024 Miscellaneous Notes Formattin g of this note might be different from the original. Rx for losartan is sent. documented in this encounter [facility] 03-26-2024 Note [facility] Cardiology Clinic Note Chief Complaint: New patient here to establish care. Ref from Dr. Reynolds for abnormal stress test. 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 Stress test was ordered for [...] Coronary artery disease, PVD (peripheral vascular disease) ([facility]), and Stroke ([facility]). Surgical History He has a past surgical [...] Coronary angiography: Left (more content not included)... [facility] 02-25-2024 Note Patient: Taylor briceño Procedure Information Date/Time: 02/25/24 1030 Procedure: Coronary angiography (Left) - andrea Location: [facility] CHESS INSTRUCTOR 3 / [facility] (Cath) Providers: Festus Castillo MD [...] consented to blood products. Additional Equipment Requests [facility] 02-17-2024 Note [facility] Cardiology Clinic Note Chief Complaint: New patient here to establish care. Ref from Dr. Reynolds for abnormal stress test. 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 Stress test was ordered for [...] catheterization. I will not be in the Instrument Specialist for the next 3 to 4 weeks; [...] antiplatelet therapy, moder (more content not included)... [facility] 11-05-2022 Evaluation note Encounter Date Diagnosis Assessment [...] (ICD-10 - G89.29) Follow up after procedure. [employer] Other 02-09-2023 Evaluation note* Encounter Date Diagnosis [...] cant remember who the surgeon was in [place]. He presents with his today, both the [...] negative findings were considered in medical decision-making. [employer] Other 11-11-2022 Discharge summary Author Sang [facility] July 20, 2022 6:39pm Note Date/Time July 20, 2022 3:04pm [facility] [address] [place] [id number] Discharge Summary Signed Patient: Taylor Mcclellan SR MR#: [id number] : 1955 Acct:[id number] Age/Sex: 66 / M Adm Date: 2 Loc: Room: [address] [place] [address]: Sang Bauer MD Copies to: [...] affect Discharge Plan Discharge Plan Patient Disposition: Senior Care Facility Activity: No Activity Restriction Diet: Low-Sodium [...] tablet 75 mg PO DAILY Discontinued hydrocodone-acetaminophen [[place]] 5-325 mg tablet 1 tab PO BID PRN (Reason: Pain) Qty: 0 0RF Other Ambulatory Orders: DME Home Medical Equipment (Routine) Timeframe: [id number] Location: Determined by Patient Ordered By: Sang Bauer Follow Up: Lilia Hopper APRN [Nurse Practitioner] - 08/22/22 10:30 am Documented By: Sang Bauer MD 07/20/22 1506 Signed By: <Electronically signed by Sang Bauer MD> 07/20/22 1615 [facility] Work Phone: 1(397) 776-238411-11-2022 Progress note Author Itzel Adams [facility] July 20, 2022 8:06am Note Date/Time July 20, 2022 8:06am [facility] [address] [place] [address] Cardiology Progress Note Signed Patient: Taylor Mcclellan MR#: [id number] : 1955 Acct:[id number] Age/Sex: 66 / M Adm Date: 2 Loc: Room: [address] [place] [address] Type: ADM INOo Attending Dr: Sang Bauer [...] it is a single-vessel bypass done in [place] record is not available patient and his cannot remember which hospital he had his surgery at. He does not follow with cardiology Qualifiers: Coronary Disease-Associated Artery/Lesion type: [place] artery [place] vs. transplanted heart: [place]om[place] heart Associated angina: without angina Qualified Code(s): I25.10 - Atherosclerotic heart disease of diom[place] coronary artery without angina pectoris Code(s): I25.10 - Atherosclerotic heart disease of [place]om[place] coronary artery without angina pectoris Status: Acute [...] 3. Stress test negative for ischemia or CT. Patient can be discharged home cardiac chew Documented By: Itzel Adams MD 07/20/22804 Signed By: <Electronically signed by MD Itzel Adams> 07/20/22805 [facility] Work Phone: 1(978) 162-496211-10-2022 Progress note Author Sang Bauer [facility] [facility] July 19, 2022 4:57pm Note Date/Time July 19, 2022 4:57pm [facility] [address] [place] [address] Hospitalist Progress Note Signed Patient: Taylor Mcclellan SR MR#: [id number] : 1955 Acct:[id number] Age/Sex: 66 / M Adm Date: 2 Loc: Room: [address] [place] [address] Type: ADM INOo Attending Dr: Sang Bauer [...] code Documented By: Sang Bauer MD 07/19/22 4501 Signed By: <Electronically signed by Sang Bauer MD> 07/19/22 1657 [facility] Work Phone: 1(549) 328-283211-10-2022 Progress note Author Itzel Adams [facility] July 19, 2022 8:35am Note Date/Time July 19, 2022 8:35am [facility] [address] [place] [address] Cardiology Progress Note Signed Patient: Taylor Mcclellan SR MR#: [id number] : 1955 Acct:[id number] Age/Sex: 66 / M Adm Date: 2 Loc: Room: [address] [place] [address] Type: ADM INOo Attending Dr: Sang Bauer [...] it is a single-vessel bypass done in [place] record is not available patient and his cannot remember which hospital he had his surgery at. He does not follow with cardiology Qualifiers: Coronary Disease-Associated Artery/Lesion type: diomede artery [place] vs. transplanted heart: diomede heart Associated angina: without angina Qualified Code(s): I25.10 - Atherosclerotic heart disease of diomede coronary artery without angina pectoris Code(s): I25.10 - Atherosclerotic heart disease of diomede coronary artery without angina pectoris Status: Acute [...] <Electronically signed by MD Itzel Adams> 07/19/2235 [facility] Work Phone: 1(752) 312-468411-09-2022 Progress [facility] July 18, 2022 3:24pm Note Date/Time July 18, 2022 3 :24pm [facility] [address] [place] [address] Hospitalist Progress Note Signed Patient: Taylor Mcclellan MR#: [id number] : 1955 Acct:[id number] Age/Sex: 66 / M Adm Date: 2 Loc: 3T Room: [address] [place] [address] Type: ADM INOo Attending Dr: Sang Bauer [...] Administration Divalproex Sodium 500 mg 07/18/22 12:00 11/09/22 11:47 Divalproex Sodium 500 Mg Tablet.Dr PO [...] 25 Mg Tablet PO 07/18/23 13:59 TID [facility] Insulin Aspart 0 units 07/17/22 22:00 07/18/22 11:48 Insulin Aspart 300 Units/3 Ml Insuln.Pen SUBCUT 07/17/23 21:59 Not Given TID.WM.HS [facility] Protocol Lamotrigine 100 mg 07/18/22 12:00 07/18/22 [...] 11:15 Brexpiprazole [Rexulti] PO 07/18/23 11:14 1XD [facility] Ondansetron HCl 4 mg 07/17/22 18:33 Ondansetron [...] signed by Sang Bauer MD> 07/18/22 1524 [facility] Work Phone: 1(255) 170-555011-09-2022 History and physical note Author Sang Bauer [facility] July 18, 2022 3:22pm Note Date/Time July 17, 2022 6 :41pm [facility] [address] [place] [address] Hospitalist H&P Signed Patient: Taylor Mcclellan MR#: [id number] : 1955 Acct:[id number] Age/Sex: 66 / M Adm Date: 2 Loc: 3T Room: [address] [place] [address] Type: ADM INOo Attending Dr: Sang Bauer [...] at home. Reportedly patient was taken to [facility] couple days ago when he was [...] his live in a mobile home in [place]. Meds Medications and Allergies Allergies chlordiazepoxide [From [...] 07/17/22] hydrocodone 5 mg-acetaminophen 325 mg tablet ([place]) 1 tab PO BID PRN Pain #0 [...] % (Auto) 29.5 % (.) 07/17/22 15:44 [place] % (Auto) 5.4 % (.) 07/17/22 15:44 Eos % (Auto) 0.7 % (.) 07/17/22 15:44 Baso % (Auto) 1.0 % (.) 07/17/22 15:44 Neut # (Auto) 4.9 x10E3/uL (1.8-7.7) 07/17/22 15:44 Lymph # (Auto) 2.3 x10E3/uL (1.00-4.8) 07/17/22 15:44 [place] # (Auto) 0.4 x10E3/uL (0.0-0.8) 07/17/22 15:44 [...] full code Documented By: Sang Bauer MD 07/17/221837 Signed By: <Electronically signed by Sang Bauer MD> 07/18/22 8002 [facility] Work Phone: 1(139) 980-615711-09-2022 Consult note Author Itzel Adams [facility] July 18, 2022 11:46am Note Date/Time July 18, 2022 1 1:43am [facility] [address] [place] [address] Cardiology Consult Note Signed Patient: Taylor Mcclellan SR MR#: [id number] : 1955 Acct:[id number] Age/Sex: 66 / M Adm Date: 2 Loc: Room: [address] [place] [address] Type: ADM INOo Attending Dr: Sang Bauer MD Copies to: MD Genesis Goetz MD Mourhaf A Traboulssi, MD~ Cardiology HPI History of Present Illness Consult Date: 07/18/22 Reason for Consult: Chest pain HPI: Mr. Mcclellan is a 66 year old male with known history of coronary artery disease and prior bypass surgery done in [place]. No records available. Patient report to have [...] his live in a mobile home in [place]. Meds Medications and Allergies Allergies chlordiazepoxide [From [...] 07/17/22] hydrocodone 5 mg-acetaminophen 325 mg tablet ([place]) 1 tab PO BID PRN Pain #0 [...] x10E3/uL Lymph # (Auto) 2.3 (1.00-4.8) x10E3/uL [place] # (Auto) 0.4 (0.0-0.8) x10E3/uL Eos # [...] @ 100 mls/hr IV ONCE ONE Rx #:[id number] Oral 0 / 0 50 / 50 [...] it is a single-vessel bypass done in [place] record is not available patient and his cannot remember which hospital he had his surgery at. He does not follow with cardiology Qualifiers: Coronary Disease-Associated Artery/Lesion type: diomede artery [place] vs. transplanted heart: diomede heart Associated angina: without angina Qualified Code(s): I25.10 - Atherosclerotic heart disease of diomede coronary artery without angina pectoris Code(s): I25.10 - Atherosclerotic heart disease of diomede coronary artery without angina pectoris (3) Hx [...] MD Itzel Adams> 07/18/22 1146 [facility] Work Phone: 1(135) 832-667511-08-2022 History and physical note Author Sang Bauer [facility] July 18, 2022 3:22pm Note Date/Time July 17, 2022 6 :41pm [facility] [address] [place] [address] Hospitalist H&P Signed Patient: Taylor Mcclellan MR#: [id number] : 1955 Acct:[id number] Age/Sex: 66 / M Adm Date: 2 Loc: Room: 7R5629-0 Type: ADM INOo Attending Dr: Sang Bauer [...] at home. Reportedly patient was taken to [facility] couple days ago when he was [...] his live in a mobile home in [place]. Meds Medications and Allergies Allergies chlordiazepoxide [From [...] 07/17/22] hydrocodone 5 mg-acetaminophen 325 mg tablet ([place]) 1 tab PO BID PRN Pain #0 [...] % (Auto) 29.5 % (.) 07/17/22 15:44 [place] % (Auto) 5.4 % (.) 07/17/22 15:44 Eos % (Auto) 0.7 % (.) 07/17/22 15:44 Baso % (Auto) 1.0 % (.) 07/17/22 15:44 Neut # (Auto) 4.9 x10E3/uL (1.8-7.7) 07/17/22 15:44 Lymph # (Auto) 2.3 x10E3/uL (1.00-4.8) 07/17/22 15:44 [place] # (Auto) 0.4 x10E3/uL (0.0-0.8) 07/17/22 15:44 [...] code Documented By: Sang Bauer MD 07/17/22 6780 Signed By: <Electronically signed by Sang Bauer MD> 07/18/22 1526 [facility] Work Phone: [phone]) [phone] Consult note Author Itzel Adams [facility] July 18, 2022 11:46am Note Date/Time July 18, 2022 1 1:43am [facility] [address] [place] [address] Cardiology Consult Note Signed Patient: Taylor Mcclellan SR MR#: [id number] : 1955 Acct:[id number] Age/Sex: 66 / M Adm Date: 2 Loc: 3T Room: [address] [place] [address] Type: ADM INOo Attending Dr: Sang Bauer MD Copies to: MD Genesis Goetz MD Mourhaf A Traboulssi, MD~ Cardiology HPI History of Present Illness Consult Date: 07/18/22 Reason for Consult: Chest pain HPI: Mr. Mcclellan is a 66 year old male with known history of coronary artery disease and prior bypass surgery done in [place]. No records available. Patient report to have [...] his live in a mobile home in [place]. Meds Medications and Allergies Allergies chlordiazepoxide [From [...] 07/17/22] hydrocodone 5 mg-acetaminophen 325 mg tablet ([place]) 1 tab PO BID PRN Pain #0 [...] x10E3/uL Lymph # (Auto) 2.3 (1.00-4.8) x10E3/uL [place] # (Auto) 0.4 (0.0-0.8) x10E3/uL Eos # [...] @ 100 mls/hr IV ONCE ONE Rx #:[id number] Oral 0 / 0 50 / 50 [...] it is a single-vessel bypass done in [place] record is not available patient and his cannot remember which hospital he had his surgery at. He does not follow with cardiology Qualifiers: Coronary Disease-Associated Artery/Lesion type: diomede artery [place] vs. transplanted heart: diomede heart Associated angina: without angina Qualified Code(s): I25.10 - Atherosclerotic heart disease of diomede coronary artery without angina pectoris Code(s): I25.10 - Atherosclerotic heart disease of diom[place] coronary artery without angina pectoris (3) Hx [...] signed by MD Itzel Adams> 07/18/22 1146 [facility] Work Phone: Discharge summary Author Sang Bauer [facility] July 20, 2022 6:39pm Note Date/Time July 20, 2022 3:04pm [facility] [address] [place] [address] Discharge Summary Signed Patient: Taylor Mcclellan MR#: [id number] : 1955 Acct:[id number] Age/Sex: 66 / M Adm Date: 2 Loc: Room: [address] [place] [address]: Sang Bauer MD Copies to: [...] affect Discharge Plan Discharge Plan Patient Disposition: Senior Care Facility Activity: No Activity Restriction Diet: Low-Sodium [...] tablet 75 mg PO DAILY Discontinued hydrocodone-acetaminophen [[place]] 5-325 mg tablet 1 tab PO BID PRN (Reason: Pain) Qty: 0 0RF Other Ambulatory Orders: DME Home Medical Equipment (Routine) Timeframe: [id number] Location: Determined by Patient Ordered By: Sang Bauer Follow Up: Lilia Hopper APRN [Nurse Practitioner] - 08/22/22 10:30 am Documented By: Sang Bauer MD 07/20/22 1504 Signed By: <Electronically signed by Sang Bauer MD> 07/20/22 2562 [facility] Work Phone: Evaluation note* Diagnosis Onset Date Resolution Status Chest pain acute Coronary artery disease acut e Generalized weakness acute Hx of CABG acute Diabetes mellitus chronic HTN (hypertension) chronic [facility] Work Phone: Evaluation note* Diagnosis Onset Date Resolution Status Bipolar 1 disorder, depressed, severe acute Chest pain acute Coronary artery disease acut e Generalized weakness acute Hx of CABG acute Chronic back pain chronic Diabetes mellitus chronic HTN (hypertension) chronic [facility] Work Phone: Evaluation noteNo assessment information available [facility] Work Phone: evaluation noteNo InformationNortHospital of [facility] [employer] Other Evaluation note* Diagnosis Primary hypertension (CMS/HCC)- Primary Unspecified essential hypertension documented in this encounter [facility] N[facility]ative - Reported* Type Description Date Medical History CABG Medical History BPH Medical History HTN Medical History Diabetes Medical History HLD Medical History lumbosacral spondylosis Medical History lumbar neuritis Medical History disorder of sacrum Surgical History previous back surgery Surgical History heart valve replacement Surgical History CABG Hospitalization History see above [employer] Other Hospital Discharge instructions Additional Instructions SNF TO MANAGE: PT/OT to eval and treat Monitor VS per protocol--HTN Monitor FSBS Maintain high risk fall precautions Care to be managed by [facility] Work Phone: Progress note Author Sang Bauer [facility] July 18, 2022 3:24pm Note Date/Time July 18, 2022 3 :24pm [facility] [address] [place] [address] Hospitalist Progress Note Signed Patient: Taylor Mcclellan MR#: [id number] : 1955 Acct:[id number] Age/Sex: 66 / M Adm Date: 2 Loc: 3T Room: [address] [place] [address] Type: ADM INOo Attending Dr: Sang Bauer [...] Insuln.Pen SUBCUT 07/17/23 21:59 Not Given TID.WM.HS [facility] Protocol Lamotrigine 100 mg 07/18/22 12:00 07/18/22 [...] signed by Sang Bauer MD> 07/18/22 1524 [facility] Work Phone: Progress note Author Itzel Adams [facility] July 19, 2022 8:35am Note Date/Time July 19, 2022 8:35am [facility] [address] [place] [address] Cardiology Progress Note Signed Patient: Taylor Mcclellan MR#: [id number] : 1955 Acct:[id number] Age/Sex: 66 / M Adm Date: 2 Loc: Room: [address] [place] [address] Type: ADM INOo Attending Dr: Sang Bauer [...] it is a single-vessel bypass done in [place] record is not available patient and his cannot remember which hospital he had his surgery at. He does not follow with cardiology Qualifiers: Coronary Disease-Associated Artery/Lesion type: diomede artery [place] vs. transplanted heart: diomede heart Associated angina: without angina Qualified Code(s): I25.10 - Atherosclerotic heart disease of diom[place] coronary artery without angina pectoris Code(s): I25.10 - Atherosclerotic heart disease of diom[place] coronary artery without angina pectoris Status: Acute [...] <Electronically signed by MD Itzel Adams> 07/19/22834 [facility] Work Phone: Progress note Author Sang Bauer [facility] July 19, 2022 4:57pm Note Date/Time July 19, 2022 4:57pm [facility] [address] [place] [address] Hospitalist Progress Note Signed Patient: Taylor Mcclellan MR#: [id number] : 1955 Acct:[id number] Age/Sex: 66 / M Adm Date: 2 Loc: Room: [address] [place] [address] Type: ADM INOo Attending Dr: Sang Bauer [...] Insuln.Pen SUBCUT 07/17/23 21:59 Not Given TID.WM.HS [facility] Protocol Lamotrigine 100 mg 07/18/22 12:00 07/19/22 [...] <Electronically signed by Sang Bauer MD> 07/19/221656 [facility] Work Phone: Progress note Author Itzel Adams [facility] July 20, 2022 8:06am Note Date/Time July 20, 2022 8:06am [facility] [address] [place] [address] Cardiology Progress Note Signed Patient: Taylor Mcclellan SR MR#: [id number] : 1955 Acct:[id number] Age/Sex: 66 / M Adm Date: 2 Loc: Room: [address] [place] [address] Type: ADM INOo Attending Dr: Sang Bauer [...] it is a single-vessel bypass done in [place] record is not available patient and his cannot remember which hospital he had his surgery at. He does not follow with cardiology Qualifiers: Coronary Disease-Associated Artery/Lesion type: diomede artery [place] vs. transplanted heart: diomede heart Associated angina: without angina Qualified Code(s): I25.10 - Atherosclerotic heart disease of diom[place] coronary artery without angina pectoris Code(s): I25.10 - Atherosclerotic heart disease of diom[place] coronary artery without angina pectoris Status: Acute [...] 3. Stress test negative for ischemia or CT. Patient can be discharged home cardiac chew Documented By: Itzel Adams MD 07/20/22 0805 Signed By: <Electronically signed by MD Itzel Adams> 07/20/22 0806 [facility] Work Phone: Summary Purpose Family History Relationship Condition Age at Onset Recorded Date/T mahi Not Specified Cardiac disease Unknown Epilepsy Unknown brother Epilepsy Unknown Advance Directives Advance Directive Response Recorded Date/ Time Advance Directives Yes January 23 9 4:30pm Latest Code Status on File [...] section and content) DATE CREATED AUTHOR 10/15/2019 [facility] DATE CREATED AUTHOR AUTHOR'S ORGANIZ ATION 11/29/2021 [facility] DATE CREATED AUTHOR AUTHOR'S ORGANIZ ATION [facility]2023 [facility] DATE CREATED AUTHOR AUTHOR'S ORGANIZ ATION 01/23/2023 [facility] DATE CREATED AUTHOR AUTHOR'S ORGANIZ ATION 08/18/2023 [facility] DATE CREATED AUTHOR AUTHOR'S ORGANIZ ATION 11/11/2023 [facility] DATE CREATED AUTHOR AUTHOR'S ORGANIZ ATION 03/30/2024 [facility] DATE CREATED AUTHOR AUTHOR'S ORGANIZ ATION 05/06/2024 [facility] Care Teams (unrecognized sec tion and content) Team Status: Active Member Role Status Dates Genesis Reynolds MD Primary Care Provider Active Segundo Huston MD Emergency Provider Active Sang Bauer MD Admit Provider, Attending Provider A ctive Gardenia Mckeon RN Other Provider Active W Valerio Lee DO Other Provider Active Kaden Summers MD Other Provider Active Edinson Bustamante MD Other Provider Active Itzel Adams MD Other Provider Active Ramos Fraga MD Other Provider Active Lilia Orourke APRN Other Provider Active Cinthia Rae MD Other Provider Active Ramón Ayala MD Other Provider Active Flavio Ramirez MD Other Provider Active Pily Winslow , [facility]- Other Provider Active Adelaide Leonardo MD Other Provider Active Team Status: Active Member Role Status Dates Genesis Reynolds MD Primary Care Provider Active Team Status: Inactive Member Role Status Dates Genesis Reynolds MD Primary Care Provider Active Segundo Huston MD Emergency Provider Active Sang Bauer MD Admit Provider, Attending Provider A ctive Itzel Adams MD Referring Provider Active Team Status: Inactive Member Role Status Dates Genesis Reynolds MD Primary Care Provider Active Benson Lane MD Attending Provider Active Tool Grinder Set Up Operator Gear Relationship Specialty Start Date End Date Bro Sanford MD PCP - General Family Medicine 12/26/16 Tool Grinder Set Up Operator Gear Relationship Specialty Start Date End Date Ebenezer Hopkins MD [address] [facility] [place] [address] PCP - General Psychiatry 04/26/23 Goals (unrecognized section and content) Goals may be documented in a n alternate sectionNo InformationNo InformationNo InformationNo InformationNo InformationNo Information REASON FOR VISIT (unrecogniz ed section and content) Reason Comments Med Refill FOR RECORDS PERTAINING TO PATIENTS WHO ARE [...] BE BASED ON THE PRIMARY CLINICAL RECORDS. [facility] [employer] [facility]. provides no warranty or guarantee of the accuracy or completeness of information in this document.
[2024-09-09 23:50] VITALS: PULSE 96; O2SAT 89
[2024-09-09 23:50] LABS: Basophils Percent Auto 0.4 % (0.2-2.0); Eosinophils Percent Auto 0.1 % (0.9-7.0); Hematocrit 38.6 % (42.0-54.0); Hemoglobin 12.5 g/dL (14.0-18.0); Immature Granulocytes Abs Auto 0.02 10^3/uL (0.00-0.03); Immature Granulocytes Pct Auto 0.3 % (0.0-0.5); Lymphocytes Absolute Auto 0.9 10^3/uL (1.2-3.8); Lymphocytes Percent Auto 13.5 % (20.5-60.0); Mean Corpuscular HGB Conc 32.4 g/dL (29.9-35.2); Mean Corpuscular Hemoglobin 30.8 pg (25.9-34.0); Mean Corpuscular Volume 95.1 fL (80.0-94.0); Mean Platelet Volume 11.4 fL (9.5-13.5); Monocytes Absolute Auto 0.9 10^3/uL (0.3-0.8); Monocytes Percent Auto 12.5 % (1.7-12.0); Neutrophils Percent Auto 73.2 % (43.0-75.0); Platelet Count 181 10^3/uL (150-450); Red Blood Count 4.06 10^6/uL (4.70-6.10); Red Cell Distribution Width 13.4 % (11.0-15.0); White Blood Count 6.9 10^3/uL (4.0-11.0)
[2024-09-10] VITALS (40 sets, daily range): BP systolic 102–163; BP diastolic 59–95; PULSE 66–104; TEMP 36.4–37; O2SAT 84–98; BMI 32.2
[2024-09-10 00:11] LABS: INR 1.03; Partial Thromboplastin Time 28.7 sec (22.3-36.2); Prothrombin Time 10.9 sec (9.0-11.6)
[2024-09-10 00:14] LABS: Lactate/Lactic Acid 1.8 mmol/L (0.4-2.0)
[2024-09-10 00:21] LABS: Alanine Aminotransferase 38 U/L (16-63); Albumin Globulin Ratio 0.7; Albumin Level 3.2 g/dL (3.4-5.0); Alkaline Phosphatase 48 U/L (46-116); Anion Gap 13.2; Aspartate Amino Transferase 35 U/L (15-37); BUN Creatinine Ratio 17.5; Bilirubin Total 0.3 mg/dL (0.2-1.0); Calcium 8.7 mg/dL (8.5-10.1); Carbon Dioxide 27.3 mmol/L (21.0-32.0); Chloride 106 mmol/L (98-107); Estimated GFR (African America 53 (>=60 mL/min/1.73m^2); Estimated GFR (Non-African Ame 43 (>=60 mL/min/1.73m^2); Globulin 4.3 g/dL; Glucose 143 mg/dL (74-106); Potassium 4.5 mmol/L (3.5-5.1); Sodium 142 mmol/L (136-145); Total Protein 7.5 g/dL (6.4-8.2); Troponin I High Sensitivity 11.6 pg/mL (4.0-76.1)
[2024-09-10 00:26] LABS: Influenza Virus A Antigen Negative; Influenza Virus B Antigen Negative; Internal Control Within Normal Limits; SARS-CoV-2 Ag POSITIVE (NEGATIVE)
[2024-09-10 00:27] LABS: Internal Control Within Normal Limits
[2024-09-10 00:39] LABS: Ethanol <3 mg/dL
--- NOTE | 2024-09-10 01:27 | ED_ITS ---
HPI HPI - General Adult General Chief complaint: Fall Stated complaint: FALL Time Seen by Provider: 09/09/24 23:29 Source: patient Mode of arrival: ambulance History of Present Illness HPI narrative: 68-year-old male to the emergency department chief complaint of generalized weakness, cough and a fall. Report was not obtained from his facility so little is known about the fall/recent circumstances however EMS was able to glean that he had an unwitnessed fall at the facility. He is on Plavix. He denies any injuries. Patient reports he feels weak and fatigued. No other history could be obtained from the patient. Past medical history: Diabetes, tremor, stroke, hypertension, hyperlipidemia, CKD, CAD Past surgical history: CABG Related Data Home Medications ?Medication ?Instructions ?Recorded ?Confirmed carvedilol 12.5 mg tablet (Coreg) 12.5 mg PO BID 03/14/23 05/21/24 clopidogrel 75 mg tablet 75 mg PO QDAY 03/14/23 05/21/24 mirtazapine 45 mg tablet 45 mg PO .QHS 11/05/23 05/21/24 candesartan 8 mg tablet 8 mg PO DAILY 04/14/24 05/21/24 cyclobenzaprine 10 mg tablet 10 mg PO TID 04/14/24 05/21/24 divalproex 500 mg tablet,delayed 500 mg PO Q12H 04/14/24 05/21/24 release ezetimibe 10 mg tablet 10 mg PO DAILY 04/14/24 05/21/24 famotidine 40 mg tablet 40 mg PO DAILY 04/14/24 05/21/24 gabapentin 600 mg tablet 600 mg PO QID 04/14/24 05/21/24 tamsulosin 0.4 mg capsule 0.4 mg PO DAILY 04/14/24 05/21/24 tramadol 50 mg tablet 100 mg PO QID PRN pain 04/14/24 05/21/24 acetaminophen 500 mg capsule 500 mg PO TID 05/03/24 05/21/24 docusate sodium 100 mg capsule 100 mg PO .qod 05/03/24 05/21/24 multivitamin with folic acid 1 tab PO DAILY 05/03/24 05/21/24 aspirin 81 mg tablet,delayed 81 mg PO DAILY 05/21/24 05/21/24 release atorvastatin 80 mg tablet 80 mg PO DAILY 05/21/24 05/21/24 primidone 50 mg tablet 50 mg PO DAILY 05/21/24 05/21/24 triamcinolone acetonide 0.1 % 1 applic topical BID 05/21/24 05/21/24 topical cream Previous Rx's ?Medication ?Instructions ?Recorded celecoxib 200 mg capsule 200 mg PO DAILY #30 caps 03/15/23 food supplemt, lactose-reduced 1 ea PO BID 30 days #60 mL 05/24/24 (Ensure Active Protein-Muscle oral liquid) levofloxacin 750 mg tablet 750 mg PO QD 5 days #5 tabs 05/24/24 Allergies Allergy/AdvReac Type Severity Reaction Status Date / Time amitriptyline Allergy Verified 11/05/23 23:51 citalopram Allergy Verified 11/05/23 23:51 fentanyl Allergy Verified 11/05/23 23:51 simvastatin (From Zocor) Allergy Verified 11/05/23 23:51 succinylcholine Allergy Verified 11/05/23 23:51 venlafaxine (From Effexor) Allergy Verified 11/05/23 23:51 Opioid HPI Opioid Management Most Recent Opioid Data: Last Pain Scale 6 05/04/24 13:00 05/04/24 Last Pain Intensity 0 04/30/24 09:44 04/30/24 Last ORT Total Score 0 05/21/24 16:29 05/21/24 Last ORT Risk Category Low Risk 05/21/24 16:29 05/21/24 Ur Phencyclidine Scrn Negative (NEGATIVE) 11/05/23 16:26 10/11 04/01 Review of Systems ROS Status of ROS 10 or more systems reviewed and unremark able except as noted in history and below [facility] Medical History (Updated 09/10/24 @ 01:44 by Jeet Pina MD) Seizure disorder ?G40.909 - Epilepsy, unspecified, not intractable, without status epilepticus (ICD-10) Altered mental status ?R41.82 - Altered mental status, unspecified (ICD-10) Weakness ?R53.1 - Weakness (ICD-10) Ambulatory dysfunction ?R26.2 - Difficulty in walking, not elsewhere classified (ICD-10) Fall ?W19.XXXA - Unspecified fall, initial encounter (ICD-10) Chronic low back pain with bilateral sciatica ?M54.41 - Lumbago with sciatica, right side (ICD-10) ?M54.42 - Lumbago with sciatica, left side (ICD-10) ?G89.29 - Other chronic pain (ICD-10) Altered mental status ?R41.82 - Altered mental status, unspecified (ICD-10) Chronic back pain ?M54.9 - Dorsalgia, unspecified (ICD-10) ?G89.29 - Other chronic pain (ICD-10) Orthostatic dizziness ?R42 - Dizziness and giddiness (ICD-10) Accidental fall ?W19.XXXA - Unspecified fall, initial encounter (ICD-10) CAD (coronary artery disease) ?I25.10 - Atherosclerotic heart disease of [place] coronary artery without angina pectoris (ICD-10) Back pain ?M54.9 - Dorsalgia, unspecified (ICD-10) 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 - Fusion of spine, lumbar region (ICD-10) High cholesterol ?E78.00 - Pure hypercholesterolemia, unspecified (ICD-10) Hypertension ?I10 - Essential (primary) hypertension (ICD-10) IDDM (insulin dependent diabetes mellitus) Restless leg syndrome ?G25.81 - Restless legs syndrome (ICD-10) Suicidal ideation ?R45.851 - Suicidal ideations (ICD-10) Sleep apnea ?G47.30 - Sleep apnea, unspecified (ICD-10) Anxiety ?F41.9 - Anxiety disorder, unspecified (ICD-10) Metabolic encephalopathy ?G93.41 - Metabolic encephalopathy (ICD-10) Depression ?F32.A - Depression, unspecified (ICD-10) Acute renal failure ?N17.9 - Acute kidney failure, unspecified (ICD-10) Altered mental status ?R41.82 - Altered mental status, unspecified (ICD-10) Surgical History S/P CABG (coronary artery bypass graft) ?Z95.1 - Presence of aortocoronary bypass graft (ICD-10) History of heart artery stent ?Z95.5 - Presence of coronary angioplasty implant and graft (ICD-10) Family History Mother Family history of myocardial infarction Social History Within the past year, how often did you have a drink containing alcohol: never Score interpretation: A score less than 4 is consistent with normal alcohol consumption. 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 Known occupational exposures/hazards: No Highest level of school completed/degree received: high school graduate Do you want help with school or training: No Are you now , , , , never or living with a partner: In a typical week, how many times do you talk on the telephone with family, friends, or neighbors: never How often do you get together with friends or relatives: never How often do you attend yazidi or yazdanism services: never Do you belong to any clubs or organizations such as yazidi groups unions, [id number] or athletic groups, or school groups: no Total score: 1 Score interpretation: A score of less than or equal to 1 indicates the most socially isolated. Little interest or pleasure in doing things: nearly every day Feeling down, depressed, or hopeless: several days Feel stressed/tense/nervous/anxious/difficulty sleeping: very much Life stressors: recent of family or friend Life stressor details: mother and step father a year ago Due to disability, difficulty making decisions: No Do you think of yourself as: straight/heterosexual Gender Identity: male Exam Narrative Exam Narrative: Primary Survey Airway Intact Lung sounds clear and equal bilaterally Pulses full and equal to femoral, radial, and dorsalis pedis bilaterally Heart regular rate and rhythm Skin warm, dry, pink GCS 14, confused Movement and sensation intact to all extremities Patient Fully Exposed. Contusion/abrasion to the skin overlying the right scapula. Secondary Survey General: GCS 14; Alert HEENT: Head atraumatic; Facial bones stable; Eyes normal inspection, Pupils round, 4-2mm blt; No evidence of oropharyngeal trauma; No blood in the nares or septal hematoma; Tympanic Membranes intact, no hemotympanum or drainage Neck: Normal inspection; no midline cervical tenderness; No tracheal deviation; No JVD Resp: Normal breath sounds, no wheeze or crackles; No chest wall tenderness, crepitus, or subcutaneous emphysema; No visible evidence of chest wall trauma; Chest rise symmetric; No respiratory distress Heart: Heart rate and rhythm regular; Carotid, radial, femoral, dorsalis pedis pulses +2 and equal bilaterally; No Murmurs Abdomen: Soft; mild tenderness. No ecchymosis or visible wounds to abdominal wall; No distention, guarding, rigidity, or rebound; Pelvis stable, no pain on compression MSK: All major joints with normal ROM. No deformities. No bony tenderness. No tenderness or step-offs to palpation of thoracic or lumbar spine; No ecchymosis or wounds to upper or lower back. Neuro: Alert and oriented; Sensation intact and symmetric bilaterally; muscle strengths symmetric bilaterally in the upper and lower extremities. Skin: Color normal; No rash; Warm; Dry. Constitutional Vital Signs, click to edit/add: Last Vital Signs Temp 97.8 F 09/09/24 23:26 Pulse 93 H 09/10/24 00:50 Resp 27 H 09/10/24 00:50 BP 127/70 09/10/24 00:25 Pulse Ox 91 L 09/10/24 00:45 O2 Del Method Nasal Cannula 09/09/24 23:35 O2 Flow Rate 3 09/09/24 23:35 Course Vital Signs Vital signs: Vital Signs Temperature 97.8 F 09/09/24 23:26 Pulse Rate 99 H 09/09/24 23:26 Respiratory Rate 24 H 09/09/24 23:26 Blood Pressure 146/84 H 09/09/24 23:26 Pulse Oximetry 94 L 09/09/24 23:26 Temperature 97.8 F 09/09/24 23:26 Pulse Rate 93 H 09/10/24 00:50 Respiratory Rate 27 H 09/10/24 00:50 Blood Pressure 127/70 09/10/24 00:25 Pulse Oximetry 91 L 09/10/24 00:45 Oxygen Delivery Method Nasal Cannula 09/09/24 23:35 Oxygen Delivery Flow Rate 3 09/09/24 23:35 Medical Decision Making MDM Narrative Medical decision making narrative: 68-year-old male to the emergency department chief complaint of fall, generalized weakness, decline. Vital stable, the patient is afebrile. He is generally weak on exam. He is falling asleep. He is confused. Trauma exam. He has some tenderness about the abdomen. No bony deformities or point tenderness. He appears ill. CT head: No acute findings CT cervical spine: No acute findings CT chest abdomen pelvis: Subacute L1 compression fracture, no other acute findings Lab work reviewed and noted. He does have some baseline CKD however today he has an PATRICIO on CKD. No major electrolyte abnormalities. His COVID test is positive. Fluids were given as he appears dehydrated clinically and on labs. The L1 compression fracture does not correlate with point tenderness clinically, likely subacute in nature. Given his decompensation, weakness he is high risk for falls. He has an acute kidney injury requiring IV fluids and further monitoring. Will admit him to the hospital. Case discussed with the hospitalist. Medical Records Medical records reviewed: Yes I reviewed the patient's medical records Lab Data Lab results reviewed: Yes I reviewed the patient's lab results Labs: Lab Results 09/09/24 09/09/24 09/09/24 Range/Units 23:35 23:38 23:39 WBC 6.9 (4.0-11.0) 10^3/uL RBC 4.06 L (4.70-6.10) 10^6/uL Hgb 12.5 L (14.0-18.0) g/dL Hct 38.6 L (42.0-54.0) % MCV 95.1 H (80.0-94.0) fL MCH 30.8 (25.9-34.0) pg MCHC 32.4 (29.9-35.2) g/dL RDW 13.4 (11.0-15.0) % Plt Count 181 (150-450) 10^3/uL MPV 11.4 (9.5-13.5) fL Neut % (Auto) 73.2 (43.0-75.0) % Lymph % (Auto) 13.5 L (20.5-60.0) % Banner % (Auto) 12.5 H (1.7-12.0) % Eos % (Auto) 0.1 L (0.9-7.0) % Baso % (Auto) 0.4 (0.2-2.0) % Neut # (Auto) 5.0 (1.4-6.5) 10^3/uL Lymph # (Auto) 0.9 L (1.2-3.8) 10^3/uL Banner # (Auto) 0.9 H (0.3-0.8) 10^3/uL Eos # (Auto) 0.0 (0.0-0.7) 10^3/uL Baso # (Auto) 0.0 (0.0-0.1) 10^3/uL Abs Immat Gran (auto) 0.02 (0.00-0.03) 10^3/uL Imm/Tot Granulo (auto) 0.3 (0.0-0.5) % PT 10.9 (9.0-11.6) sec INR 1.03 APTT 28.7 (22.3-36.2) sec Sodium 142 (136-145) mmol/L Potassium 4.5 (3.5-5.1) mmol/L Chloride 106 (98-107) mmol/L Carbon Dioxide 27.3 (21.0-32.0) mmol/L Anion Gap 13.2 BUN 28.0 H (7.0-18.0) mg/dL Creatinine 1.60 H (0.70-1.30) mg/dL Est GFR ( Amer) 53 L (>=60 mL/min/1.73m^2) Est GFR (Non-Af Amer) 43 L (>=60 mL/min/1.73m^2) BUN/Creatinine Ratio 17.5 Glucose 143 H (74-106) mg/dL Lactate 1.8 (0.4-2.0) mmol/L Calcium 8.7 (8.5-10.1) mg/dL Total Bilirubin 0.3 (0.2-1.0) mg/dL AST 35 (15-37) U/L ALT 38 (16-63) U/L Alkaline Phosphatase 48 (46-116) U/L Troponin I High Sens 11.6 (4.0-76.1) pg/mL Total Protein 7.5 (6.4-8.2) g/dL Albumin 3.2 L (3.4-5.0) g/dL Globulin 4.3 g/dL Albumin/Globulin Ratio 0.7 Ethanol Quant <3 mg/dL Influenza Type A Ag Negative Influenza Type B Ag Negative SARS-CoV-2 Ag (CV2AG) Positive A (NEGATIVE) POC Glucose 103 (74-106) mg/dL Imaging Data CT scan - head: Attestation: I have reviewed the pertinent imaging results. Radiologist's impression: ITS Impressions Abdomen/Pelvis CT 09/09/24 23:30 IMPRESSION: 1. Mild to moderate haziness throughout both lungs suggestive of pulmonary edema. 2. Mild compression fracture of L1 suspected to be acute to subacute. This is new compared to 04/14/2024. 3. No acute solid or hollow organ injury of the chest, abdomen, pelvis. Electronically authenticated by: LIAM SCHUMACHER Date: 09/10/2024 01:[address] 09/09/24 23:30 IMPRESSION: 1. No acute intracranial abnormality. No hemorrhage or mass effect. 2. Old lacunar infarctions. 3. Atrophy. 4. Vascular calcifications. 5. Multilevel cervical spondylosis. No acute fracture. Please also see the separate dictations of the CT the chest, abdomen, and pelvis. Electronically authenticated by: ERICKSON SOLITARIO Date: 09/10/2024 01:[address] 09/09/24 23:30 IMPRESSION: 1. Mild to moderate haziness throughout both lungs suggestive of pulmonary edema. 2. Mild compression fracture of L1 suspected to be acute to subacute. This is new compared to 04/14/2024. 3. No acute solid or hollow organ injury of the chest, abdomen, pelvis. Electronically authenticated by: LIAM SCHUMACHER Date: 09/10/2024 01:[address] 09/09/24 23:30 IMPRESSION: 1. No acute intracranial abnormality. No hemorrhage or mass effect. 2. Old lacunar infarctions. 3. Atrophy. 4. Vascular calcifications. 5. Multilevel cervical spondylosis. No acute fracture. Please also see the separate dictations of the CT the chest, abdomen, and pelvis. Electronically authenticated by: ERICKSON SOLITARIO Date: 09/10/2024 01:17 ECG Data Attestation: I personally reviewed and interpreted this ECG as follows: (Normal sinus rhythm at a rate of 96. Right bundle branch block. No STEMI. Normal QTc. ) Critical Care Time Critical Care Time Critical Care Time: Yes Total Critical Care Time: 32 Attestation: Critical Care Procedure Note Authorized and Performed by: Jeet Pina DO Total critical care time: 32 min Due to a high probability of clinically significant, life threatening deterioration, the patient required my highest level of preparedness to intervene emergently and I personally spent this critical care time directly and personally managing the patient. This critical care time included obtaining a history; examining the patient; pulse oximetry; ordering and review of studies; arranging urgent treatment with development of a management plan; evaluation of patient's response to treatment; frequent reassessment; and, discussions with other providers. This critical care time was performed to assess and manage the high probability of imminent, life-threatening deterioration that could result in multi-organ failure. It was exclusive of separately billable procedures and treating other patients and teaching time. Please see MDM section and the rest of the note for further information on patient assessment and treatment. Discharge Plan Discharge Chief Complaint: Fall Clinical Impression: COVID-19, Accidental fall, Generalized weakness, Acute kidney injury superimposed on chronic kidney disease, Dehydration, Acute metabolic encephalopathy Patient Disposition: Admitted As Inpatient Time of Disposition Decision: 01:43 Condition: Fair Prescriptions / Home Meds: No Action clopidogrel 75 mg tablet 75 mg PO QDAY carvedilol [Coreg] 12.5 mg tablet 12.5 mg PO BID Rx Instructions: must administer with a meal/food celecoxib 200 mg Capsule 200 mg PO DAILY Qty: 30 11RF mirtazapine 45 mg tablet 45 mg PO .QHS ezetimibe 10 mg tablet 10 mg PO DAILY cyclobenzaprine 10 mg tablet 10 mg PO TID divalproex 500 mg tablet,delayed release (DR/EC) 500 mg PO Q12H famotidine 40 mg tablet 40 mg PO DAILY tamsulosin 0.4 mg capsule 0.4 mg PO DAILY tramadol 50 mg tablet 100 mg PO QID PRN (Reason: pain) candesartan 8 mg tablet 8 mg PO DAILY gabapentin 600 mg tablet 600 mg PO QID multivitamin with folic acid [High Potency Multivitamin] 1 tab PO DAILY docusate sodium 100 mg capsule 100 mg PO .qod acetaminophen 500 mg capsule 500 mg PO TID atorvastatin 80 mg tablet 80 mg PO DAILY primidone 50 mg tablet 50 mg PO DAILY aspirin 81 mg tablet,delayed release (DR/EC) 81 mg PO DAILY triamcinolone acetonide 0.1 % cream 1 applic TOPICAL BID levofloxacin 750 mg Tablet 750 mg PO QD 5 Days Qty: 5 0RF Ensure Active Protein-Muscle Liquid 1 ea PO BID 30 Days Qty: 60 0RF Print Language: Swedish Referrals: Norbert Jiang MD [Primary Care Provider] - 1 week
--- NOTE | 2024-09-10 01:31 | PC.NURSE ---
Oxygen removed to monitor
[2024-09-10] MEDS: 0.9 % SODIUM CHLORIDE 1,000 ML 1000 ML IV (01:36)
--- NOTE | 2024-09-10 02:03 | PC.NURSE ---
pt oxygen drops to 87-88% while sleeping, NC placed at 2L at this time
--- OUTSIDE RECORDS SUMMARY | 2024-09-10 02:56 | XMS_ITS | CCD ---
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 Name Role Phone Bro Sanford Primary Care Physician Unavailab Lior Dow Attending Physician Unavailable MD Genesis Reynolds Primary Care Provider [phone] MD Segundo Huston Emergency Provider [phone] MD Jodie Bauerop Admit Provider MD Lizette Sang Attending Provider LEXIE Mckeon Other Provider Unavailable DO Lawrence Lee Other Provider MD Kaden Summers Other Provider MD Edinson Bustamante Other Provider MD Itzel Adams Other Provider MD Ramos Fraga Other Provider LILA Hopper Other Provider MD Cinthia Rae Other Provider MD Ramón Ayala Other Provider MD Flavio Ramirez Other Provider Goldy [facility] Pily Espinal Other Provider [phone] MD Adelaide Leonardo Other Provider MD Itzel Adams Referring Provider MD Genesis Reynolds Primary Care Provider MD Benson Lane S Attending Provider [phone] ELIOT VILLANUEVALAS Admitting [...] Teresa Reynolds, Genesis M Primary Care Unavailable Dmoingo, Benson S Admitting Unavailable Domingo, Benson S [...] GENESIS M Primary Care Unavailable [facility] Unavailabl e Allergies Allergy Classification Reported Allergen(s) Allergy Type Date of Onset Reaction(s) Facility (6 sources) Amitriptyline; Translations: [Amitriptyline] Drug Allergy 05-18-20 14 Unknown Reaction [facility] (12 sources) atorvastatin; Translations: [atorvastatin] Drug Allergy 01-24-20 19 Unknown Reaction, Unknown [facility] (6 sources) chlordiazePOXIDE; Translations: [chlordiazepoxide] Drug Allergy 01-24-20 19 Unknown Reaction [facility] (6 sources) clidinium; Translations: [clidinium] Drug Allergy 01-24-20 19 Unknown Reaction [facility] (16 sources) fentaNYL; Translations: [Fentanyl] Drug Allergy 12-27-19 17 Unknown Reaction, Unknown [facility] (9 sources) venlafaxine; Translations: [venlafaxine] Drug Allergy 05-13-20 14 Other (See Comments) [facility] (4 sources) Citalopram; Translations: [Citalopram] Drug Allergy 01-11-20 21 Unknown Reaction [facility] (4 sources) Simvastatin; Translations: [simvastatin] Drug Allergy 07-17-20 22 Unknown Reaction [facility] (7 sources) Succinylcholine; Translations: [Succinylcholine] Drug Allergy 09-08-20 04 Unknown Reaction [facility] (7 sources) Amitriptyline; Translations: [Elavil] Drug Allergy 04-20-20 14 Unknown [facility] (6 sources) chlordiazePOXIDE / clidinium Drug Allergy Unknown [employer] Other (7 sources) venlafaxine; Translations: [Effexor] Drug Allergy 04-06-20 14 Unknown [facility] (1 source) buPROPion Drug Allergy [facility] (1 source) Citalopram Drug Allergy 12-31-19 20 [facility] (1 source) mirabegron Drug Allergy [facility] (1 source) Simvastatin Drug Allergy [facility] (1 source) tiZANidine Drug Allergy [facility] (1 source) Amitriptyline Drug Allergy 05-18-20 14 [facility] [employer] Work Phone: (1 source) metFORMIN; Translations: [METFORMIN] [...] 11, 2018 11:00pm December 23, 2018 4:29pm [id number] 200 actuat albuterol 0.09 mg/actuat metered dose [...] tablet by mouth twice daily Hydrocodone-Aceta minophen ([place]) 5-325 mg tablet Discontinued 1 TAB PO [...] Coronary arteriosclerosis; Translations: [Atherosclerotic heart disease of [place] coronary artery without angina pectoris] Onset: 11-25-2014 [...] 12-26-2016 Chronic Other aftercare (1 source) Other intermediate (current) drug therapy; Translations: [OTH SNF CURRENT DRUG THERAPY] Onset: 01-21-2023 Episodic Other aftercare (1 source) longterm (current) use of antithrombotics/antip latelets; Translations: [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/ANTIPLAT LETS] Onset: 12-20-2022 Episodic Other [...] 06-25-2022 07-17-2022 Episodic Other aftercare (1 source) 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 The caroline hayes was examined and there are no changes to the H&P. [facility] NURSNOTEon 02-25-2024 NURSNOTTariq RN educated pt on d/ c instructions. RN encouraged pt to voice any questions or concerns. Pt verbalizes no questions or concerns at this time. Pt was wheeled off of unit with all of belongings. [facility] Orders Onlyon 02-20-2024 Orders Only [id number] Pedro Luis Mcclellan ph 1955 M Date Provider Department Center 02/20/2024 ZANDRA TEJADA [facility] VAS LAB HI HeartVAS Family History Problem Relation Age of Onset No Known Problems Mother No Known Problems Father Family Status - Relation Status Age at Mother Father Normal [facility] HPon 02-17-2024 [facility] Cardiology Clinic Note Chief Complaint: New patient here to establish care. Ref from Dr. Reynolds for abnormal stress test. 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 Stress test was [...] catheterization. 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 Normal [facility] Office Visiton 02-17-2024 Follow-up visit [id number] LemueltariqPedro Luis ph J 1955 M Date Provider Department [place] 02/17/2024 MITZY AMEZCUA Family History Problem Relation Age of Onset No Known Problems Mother No Known Problems Father Family Status - Relation Status Age at Mother Father Level of Service:89810 UT OFFICE/OUTPATIENT [facility] HIGH MDM [address] [facility] Orders Onlyon 02-17-2024 Orders Only [id number] Pedro Luis Mcclellan ph J 1955 M Date Provider Department [place] 02/17/2024 DIRK JARA CARD [facility] Family History Problem Relation Age of Onset No Known Problems Mother No Known Problems Father Family Status - Relation Status Age at Mother Father Normal [facility] Urinalysis w/ Microon 2023 Bacteria TRACE Abnormal NONE [facility] Comment on above: Performed By: #### U AMIC #### [facility] [address] [place] [address] Hed[employer] Review Nurse: Sarai Howell MD Bilirubin, SemiQt,Ur Negative Normal NEG [facility] Comment on above: Performed By: #### U AMIC #### [facility] [address] [place] [address] Hed[employer] Review Nurse: Sarai Howell MD Blood, Urine Negative Normal NEG [facility] Comment on above: Performed By: #### U AMIC #### [facility] [address] [place] [address] [employer] Review Nurse: Sarai Howell MD Clarity (U) Clear Normal CLEAR [facility] Comment on above: Performed By: #### U AMIC #### [facility] [address] [place], [place] [id number] Hed[employer] Review Nurse: Sarai Howell MD Color (U) Yellow Normal YEL [facility] Comment on above: Performed By: #### U AMIC #### [facility] [address] [place], [place] [id number] Hed[employer] Review Nurse: Sarai Howell MD Epithelial cells LM Ql (Urine sed) 0 TO 2 Normal 0-5 [facility] Comment on above: Performed By: #### U AMIC #### [facility] [address] [place], [place] [phone] [employer] Review Nurse: Sarai Howell MD Glucose Ql (U) Negative Normal NEG [facility] Comment on above: Performed By: #### U AMIC #### [facility] [address] [place] [address] [place], [place] [phone] [employer] Review Nurse: Sarai Howell MD Ketones Ql (U) Negative Normal NEG [facility] Comment on above: Performed By: #### U AMIC #### [facility] [address] [place] [address] [place], [place] 738[address] Hedis Review Nurse: Sarai Howell MD Leukocyte esterase Test strip Ql (U) Negative Normal NEG [facility] Comment on above: Performed By: #### U AMIC #### [facility] [address] [place], [place] [address] [employer] Review Nurse: Sarai Howell MD Mucus Strands TRACE Abnormal NONE [facility] Comment on above: Performed By: #### U AMIC #### [facility] [address] [place], [place] [address]365[address] [employer] Review Nurse: Sarai Howell MD Nitrite,Ur Negative Normal [facility] Comment on above: Performed By: #### U AMIC #### [facility] [address] [place], [place] [address] [employer] Review Nurse: Sarai Howell MD PH,Ur 7.0 Normal 5.0-9.0 [facility] Comment on above: Performed By: #### U AMIC #### [facility] [address] [place], [place] [address] Hed[employer] Review Nurse: Sarai Howell MD Protein Ql (U) Negative Normal NEG [facility] Comment on above: Performed By: #### U AMIC #### [facility] [address] [place], [place] [phone] Hedis Review Nurse: Sarai Howell MD Spec. [place],Ur 1.015 Normal 1.010-1.02 0 [facility] Comment on above: Performed By: #### U AMIC #### [facility] [address] [place] [address] [place], [place] [phone] Hed[employer] Review Nurse: Sarai Howell MD Urine RBC's 0 TO 2 Normal 0-2 [facility] Comment on above: Performed By: #### U AMIC #### [facility] [address] [place] [address] [place], [place] [phone] [employer] Review Nurse: Sarai Howell MD Urine WBC's 2 TO 5 Normal 0-5 [facility] Comment on above: Performed By: #### U AMIC #### [facility] [address] [place] [address] [place], [place] 7[address] Hedis Review Nurse: aSrai Howell MD Urobilinogen,Ur Normal Normal 0.0-1.0 [facility] Comment on above: Performed By: #### U AMIC #### [facility] [address] [place], [place] [phone] Hed[employer] Review Nurse: Sarai Howell MD Urinalysis with Microscopico n 11-10-2023 Bacteria LM Ql (Urine sed) TRACE Abnormal None [facility] Bilirubin Ql (U) Negative NEGATIVE [facility] Clarity (U) Clear Clear [facility] Color (U) Yellow Yellow [facility] Epithelial cells LM.HPF (Urine sed) [#/Area] 0 TO 2 [facility] Glucose Test strip (U) [Mass/Vol] Negative NEGATIVE mg/dL [facility] Hemoglobin Auto test strip Ql (U) Negative NEGATIVE [facility] Interpretation and review of laboratory results Abnormal [facility] Ketones (U) [Mass/Vol] Negative NEGAT MELISSA mg/dL [facility] Leukocyte esterase Test strip Ql (U) Negative NEGATIVE [facility] Mucus Ql (Urine sed) TRACE Abnormal None [facility] Nitrite Ql (U) Negative NEGATIVE [facility] pH (U) 7.0 [pH] 5.0 - 9.0 [facility] Protein (U) [Mass/Vol] Negative NEGAT MELISSA mg/dL [facility] RBC LM.HPF (Urine sed) [#/Area] 0 TO 2 [facility] Specific gravity (U) [Rel density] 1.015 1.010 - 1.020 [facility] Urobilinogen Qn (U) Normal 0.0 - 1. 0 EU/dL [facility] WBC LM.HPF (Urine sed) [#/Area] 2 TO 5 [facility] Cult, Bloodon 04-30-2023 Cult, Blood Specimen Description .BLOOD Special Requests lhand, 9ml, 2 bottles Culture NO GROWTH 5 DAYS Report Status FINAL 04/30/[address] [facility] Comment on above: Performed By: #### B CUL2 #### [facility] [address] [place] [address] [employer] Review Nurse: Sarai Howell MD Cult,Bloodon 04-30-2023 Cult,Blood Specimen Description .BLOOD Special Requests LAC, 20ML Culture NO GROWTH 5 DAYS Report Status FINAL 04/30/[address] [facility] Comment on above: Performed By: #### B C #### [facility] [address] [place] [address] Hed[employer] Review Nurse: Sarai Howell MD Lipid Profileon 04-26-2023 Cholesterol [Mass/Vol] 171 mg/dL Normal <200 [facility] Comment on above: Result Comment: Cholesterol Guidelines: <200 Desirable 200-240 Borderline >240 Undesirable Performed By: #### L IPR #### [address] [address] Hedis Review Nurse: Spencer Tapia MD Cholesterol in HDL [Mass/Vol] 30 mg/dL Low >40 [facility] Comment on above: Result Comment: HDL Guidelines: <40 Undesirable 40-59 Borderline >59 Desirable Performed By: #### L IPR #### [address] [address] Hed[employer] Review Nurse: Spencer Tapia MD Cholesterol in LDL [Mass/Vol] 112 mg/dL Normal 0-130 [facility] Comment on above: Result Comment: LDL Guidelines: <100 Desirable 100-129 Near to/above Desirable 130-159 Borderline >159 Undesirable Direct (measured) LDL and calculated LDL are not interchangeable tests. Performed By: #### L IPR #### [address] [address] Hed[employer] Review Nurse: Spencer Tapia MD Cholesterol.total/Chol esterol in HDL [Mass ratio] 5.7 {ratio} High <5 [facility] Comment on above: Performed By: #### L IPR #### [address] [address] [employer]is Review Nurse: Spencer Tapia MD Triglyceride [Mass/Vol] 143 mg/dL Normal <150 [facility] Comment on above: Result Comment: Triglyceride Guidelines: <150 Desirable 150-199 Borderline 200-499 High >499 Very high Based on AHA Guidelines for fasting triglyceride, June 2012. Performed By: #### L IPR #### [address] [address] Hed[employer] Review Nurse: Spencer Tapia MD Basic Metabolic Profon 04-25 Anion gap [Moles/Vol] 13 mmol/L Normal 9-17 [facility] Comment on above: Performed By: #### T JAMIE, ANJALI, BMP #### [facility] [address] [place], [place] [phone] [employer] Review Nurse: Sarai Howell MD BUN/CRE Ratio 14 Normal 9-20 [facility] Comment on above: Performed By: #### T ANJALI AYALA, BMP #### [facility] [address] [place], [place] [address]83 [employer] Review Nurse: Sarai Howell MD Calcium [Mass/Vol] 9.3 mg/dL Normal 8.6-10.4 [facility] Comment on above: Performed By: #### T ANJALI AYALA, BMP #### [facility] [address] [place], [place] [address] [employer] Review Nurse: Sarai Howell MD Chloride [Moles/Vol] 101 mmol/L Normal 98-107 [facility] Comment on above: Performed By: #### ANJALI PRADHAN, BMP #### [facility] [address] [place], [place] [address] Hed[employer] Review Nurse: Sarai Howell MD CO2 [Moles/Vol] 25 mmol/L Normal 20-31 [facility] Comment on above: Performed By: #### T ANJALI AYALA, BMP #### [facility] [address] [place], [place] [address] Hed[employer] Review Nurse: Sarai Howell MD Creatinine [Mass/Vol] 1.3 mg/dL High 0.7-1.2 [facility] Comment on above: Performed By: #### T ANJALI AYALA, BMP #### [facility] [address] [place] [address] [employer] Review Nurse: Sarai Howell MD GFR/1.73 sq M.predicted among non-blacks MDRD (S/P/Bld) [Vol rate/Area] mL/min/{1.73_m2} Normal >60 [facility] Comment on above: Result Comment: [...] #### ANJALI PRADHAN, BMP #### [facility] [address] [place], [place] [address] Hed[employer] Review Nurse: Sarai Howell MD Glucose [Mass/Vol] 87 mg/dL Normal 70-99 [facility] Comment on above: Performed By: #### T ANJALI AYALA, BMP #### [facility] [address] [place], [place] [address] Hed[employer] Review Nurse: Sarai Howell MD Potassium [Moles/Vol] 3.9 mmol/L Normal 3.7-5.3 [facility] Comment on above: Performed By: #### ANJALI PRADHAN, BMP #### [facility] [address] [place] [address] [place], [place] [phone] Hed[employer] Review Nurse: Sarai Howell MD Sodium [Moles/Vol] 139 mmol/L Normal 135-144 [facility] Comment on above: Performed By: #### ANJALI PRADHAN, BMP #### [address] [place] [address] [employer] Review Nurse: Sarai Howell MD Urea nitrogen [Mass/Vol] 18 mg/dL Normal 8-23 [facility] Comment on above: Performed By: #### ANJALI PRADHAN, BMP #### [facility] [address] [place], [place] [address] Hed[place] Review Nurse: Sarai Howell MD CBC with Diffon 04-25-2023 Abs. Basophil 0.04 k/uL Normal 0.00-0.20 [facility] Comment on above: Performed By: #### ANJALI PRADHAN, BMP #### [facility] [address] [place] [address] Hedis Review Nurse: Sarai Howell MD Abs.Imm.Granulocyte 0.04 k/uL Normal 0.00-0.30 [facility] Comment on above: Performed By: #### ANJALI PRADHAN, BMP #### [address] [place] [address] Hedis Review Nurse: Sarai Howell MD Abs.Neutrophil (Seg) 5.64 k/uL Normal 1.50-8.10 [facility] Comment on above: Performed By: #### ANJALI PRADHAN, BMP #### [address] [place] [address] Hedis Review Nurse: Sarai Howell MD Basophils/100 WBC (Bld) 1 % Normal 0-2 [facility] Comment on above: Performed By: #### ANJALI PRADHAN, BMP #### [address] [place] [address] Hedis Review Nurse: Sarai Howell MD Eosinophils (Bld) [#/Vol] 0.09 10*3/uL Normal 0.00-0.44 [facility] Comment on above: Performed By: #### ANJALI PRADHAN, BMP #### [address] [place] [address] [employer] Review Nurse: Sarai Howell MD Eosinophils/100 WBC (Bld) 1 % Normal 1-4 [facility] Comment on above: Performed By: #### ANJALI PRADHAN, BMP #### [address] [place] [address] Hed[employer] Review Nurse: Sarai Howell MD Erythrocyte distribution width (RBC) [Ratio] 15.4 % High 11.8-14.4 [facility] Comment on above: Performed By: #### ANJALI PRADHAN, BMP #### [address] [place] [address] Hed[employer] Review Nurse: Sarai Howell MD Hematocrit (Bld) [Volume fraction] 40.6 % Low 40.7-50.3 [facility] Comment on above: Performed By: #### ANJALI PRADHAN, BMP #### [facility] [address] [place], [place] [address] Hedis Review Nurse: Sarai Howell MD Hemoglobin (Bld) [Mass/Vol] 13.1 g/dL Normal 13.0-17.0 [facility] Comment on above: Performed By: #### ANJALI PRADHAN, BMP #### [facility] [address] [place], [place] 6[address]83 Hedis Review Nurse: Sarai Howell MD Immature granulocytes/100 WBC (Bld) 1 % High 0 [facility] Comment on above: Performed By: #### ANJALI PRADHAN, BMP #### [address] [place], [place] [address] Hedis Review Nurse: Sarai Howell MD Lymphocytes (Bld) [#/Vol] 1.86 10*3/uL Normal 1.10-3.70 [facility] Comment on above: Performed By: #### ANJALI PRADHAN, BMP #### [address] [place], [place] [address]20[address] Hed[place] Review Nurse: Sarai Howell MD Lymphocytes/100 WBC (Bld) 22 % Low 24-43 [facility] Comment on above: Performed By: #### ANJALI PRADHAN, BMP #### [facility] [address] [place], [place] [address]83 Hedis Review Nurse: Sarai Howell MD MCH (RBC) [Entitic mass] 29.0 pg Normal 25.2-33.5 [facility] Comment on above: Performed By: #### ANJALI PRADHAN, BMP #### [facility] [address] [place], [place] [phone] Hedis Review Nurse: Sarai Howell MD MCHC (RBC) [Mass/Vol] 32.3 g/dL Normal 28.4-34.8 [facility] Comment on above: Performed By: #### ANJALI PRADHAN, BMP #### [facility] [address] [place], [place] [address]83 Hedis Review Nurse: Sarai Howell MD MCV (RBC) [Entitic vol] 89.8 fL Normal 82.6-102.9 [facility] Comment on above: Performed By: #### ANJALI PRADHAN, BMP #### [facility] [address] [place], [place] [address]83 Hedis Review Nurse: Sarai Howell MD Monocytes (Bld) [#/Vol] 0.83 10*3/uL Normal 0.10-1.20 [facility] Comment on above: Performed By: #### ANJALI PRADHAN, BMP #### [address] [place], [place] [address] Hed[employer] Review Nurse: Sarai Howell MD Monocytes/100 WBC (Bld) 10 % Normal 3-12 [facility] Comment on above: Performed By: #### ANJALI PRADHAN, BMP #### [address] [place], [place] [address]13783 Hedis Review Nurse: Sarai Howell MD Neutrophil (Seg) 65 % Normal 36-65 [facility] Comment on above: Performed By: #### ANJALI PRADHAN, BMP #### [address] [place], [place] 330[address]83 Hedis Review Nurse: Sarai Howell MD NRBC Automated 0.0 per 100 WBC Normal 0.0 [facility] Comment on above: Performed By: #### ANJALI PRADHAN, BMP #### [address] [place], [place] [address] Hedis Review Nurse: Sarai Howell MD Platelet mean volume (Bld) [Entitic vol] 11.9 fL Normal 8.1-13.5 [facility] Comment on above: Performed By: #### T ANJALI AYALA, BMP #### [facility] [address] [place], [place] [address] Hedis Review Nurse: Sarai Howell MD Platelets (Bld) [#/Vol] 254 10*3/uL Normal 138-453 [facility] Comment on above: Performed By: #### T ANJALI AYALA, BMP #### [facility] [address] [place], [place] [address]83 Hedis Review Nurse: Sarai Howell MD RBC (Bld) [#/Vol] 4.52 10*6/uL Normal 4.21-5.77 [facility] Comment on above: Performed By: #### T ANJALI AYALA, BMP #### [facility] [address] [place], [place] [address] Hedis Review Nurse: Sarai Howell MD WBC (Bld) [#/Vol] 8.5 10*3/uL Normal 3.5-11.3 [facility] Comment on above: Performed By: #### ANJALI PRADHAN, BMP #### [facility] [address] [place] [address] [employer] Review Nurse: Sarai Howell MD CT HEAD WO CONTRASTon [...] Babs Mae MD 04/25/23 Final result Normal [facility] Flu A/B Ag Detectionon 04-25 Flu A Ag Detection Negative Normal NEG [facility] Comment on above: Result Comment: for Influenza A Antigen Performed By: #### F LUABA #### [address] [place] [address] Hed[employer] Review Nurse: Sarai Howell MD Flu B Ag Detection Negative Normal NEG [facility] Comment on above: Result Comment: for Influenza B Antigen. Performed By: #### F LUABA #### [address] [place] [address] [employer] Review Nurse: Sarai Howell MD Lactic Acidon 04-25-2023 Lactate [Moles/Vol] 1.3 mmol/L Normal 0.5-2.2 [facility] Comment on above: Performed By: #### L ACTIC #### [address] [place] [address] [employer] Review Nurse: Sarai Howell MD [id number] 04-25-2023 SARS-CoV-2 (COVID-19) RNA JOSÉ MIGUEL+probe Ql (Unsp spec) Not detected Normal NOTDET [facility] Comment on above: Result Comment: [...] management decisions. Fact sheet for Healthcare Providers: https://www.fda.gov/media/409381/download Fact sheet for Patients: https://www.fda.gov/media/565755/download Methodology: Isothermal Nucleic Acid Amplification Performed By: #### F LUABA #### [address] [place] [address] [employer] Review Nurse: Sarai Howell MD Troponinon 6 Troponin, High Sens 26 ng/L High 022 [facility] Comment on above: Result Comment: High Sensitivity Troponin values cannot be compared with other Troponin methodologies. Performed By: #### F LUABA #### [address] [place] [address] [employer] Review Nurse: Sarai Howell MD Troponin, High Sens 27 ng/L High 022 [facility] Comment on above: Result Comment: High Sensitivity Troponin values cannot be compared with other Troponin methodologies. Performed By: #### T JAMIE, CDP, BMP #### [facility] [address] [place] [address] [place] [id number] [employer]is Review Nurse: Sarai Howell MD UA w/Reflex Cultureon 2022 Bilirubin, SemiQt,Ur SMALL Abnormal NEG [facility] Comment on above: Performed By: #### F LUABA #### [address] [place] [address] [employer] Review Nurse: Sarai Howell MD Blood, Urine 3+ Abnormal NEG [facility] Comment on above: Performed By: #### F LUABA #### [facility] [address] [place], [place] [id number] [employer]is Review Nurse: Sarai Howell MD Clarity (U) Cloudy Abnormal CLEAR [facility] Comment on above: Performed By: #### F LUABA #### [facility] [address] [place], [place] [id number] [employer]is Review Nurse: Sarai Howell MD Color (U) Yellow Normal YEL [facility] Comment on above: Performed By: #### F LUABA #### [facility] [address] [place], [place] [id number] [employer]is Review Nurse: Sarai Howell MD Glucose Ql (U) Negative Normal NEG [facility] Comment on above: Performed By: #### F LUABA #### [facility] [address] [place], [place] [id number] [employer]is Review Nurse: Sarai Howell MD Ketones Ql (U) 1+ mg/dL Abnormal NEG [facility] Comment on above: Performed By: #### F LUABA #### [facility] [address] [place] [address] [place], [place] [phone] [employer] Review Nurse: Sarai Howell MD Leukocyte esterase Test strip Ql (U) TRACE Abnormal NEG [facility] Comment on above: Performed By: #### F LUABA #### [facility] [address] [place], [place] [id number] [employer]is Review Nurse: Sarai Howell MD Nitrite,Ur Negative Normal NEG [facility] Comment on above: Performed By: #### F LUABA #### [facility] [address] [place], [place] [phone] [employer]is Review Nurse: Sarai Howell MD PH,Ur 6.0 Normal 5.0-9.0 [facility] Comment on above: Performed By: #### F LUABA #### [facility] [address] [place], [place] [id number] [employer]is Review Nurse: Sarai Howell MD Protein Ql (U) 1+ mg/dL Abnormal NEG [facility] Comment on above: Performed By: #### F LUABA #### [facility] [address] [place] [address] [employer]is Review Nurse: Sarai Howell MD Spec. Lostine,Ur >1.030 High 1.010-1.02 0 [facility] Comment on above: Performed By: #### F LUABA #### [facility] [address] [place], [place] [phone] [employer]is Review Nurse: Sarai Howell MD Urobilinogen,Ur Normal Normal 0.0-1.0 [facility] Comment on above: Performed By: #### F LUABA #### [address] [place], [place] [id number] [employer] Review Nurse: Sarai Howell MD Urinalysis,Microon 3 Bacteria 1+ Abnormal NONE [facility] Comment on above: Performed By: #### F LUABA #### [facility] [address] [place] [address] [place], [place] [phone] [employer]is Review Nurse: Sarai Howell MD Epithelial cells LM Ql (Urine sed) None Normal 0-5 [facility] Comment on above: Performed By: #### F LUABA #### [facility] [address] [place] [address] [place], [place] [phone] [employer]is Review Nurse: Sarai Howell MD Mucus Strands TRACE Abnormal NONE [facility] Comment on above: Performed By: #### F LUABA #### [facility] [address] [place] [address] [place] [address] [employer]is Review Nurse: Sarai Howell MD Urine RBC's 20 TO 50 Normal 0-2 [facility] Comment on above: Performed By: #### F LUABA #### [facility] [address] [place] [address] [employer] Review Nurse: Sarai Howell MD Urine WBC's 2 TO 5 Normal 0-5 [facility] Comment on above: Performed By: #### F HENRY #### [facility] [address] [place] [address] [employer] Review Nurse: Sarai Howell MD XR CHEST PORTABLEon 04-25-20 [...] Sarai Henson MD 04/25/23 Final result Normal [facility] BNPon 01-17-2023 Natriuretic peptide B (Bld) [Mass/Vol] 210.0 pg/mL Normal <=900.0 [facility] Comment on above: Performed By: #### B DOUGHNUT MACHINE OPERATOR HELPER, CMADM, CMP ####[facility] [address] [place] [id number]. Donna Malone CARDIAC MJ ADMITon 023 CK [Catalytic activity/Vol] 67 U/L Normal 39-308 [facility] Comment on above: Performed By: #### B DOUGHNUT MACHINE OPERATOR HELPER, CMADM, CMP ####[facility] [address] [place] [phone]. Donna Malone CK.MB [Mass/Vol] 2.51 ng/mL Normal <=3.60 [facility] Comment on above: Performed By: #### B DOUGHNUT MACHINE OPERATOR HELPER, CMADM, CMP ####[facility] [address] [place] [phone]. Donna Malone HSTROP 9.2 pg/mL Normal 4.0-76.1 [facility] Comment on above: Result Comment: CUT- OFF POINTS HAVE BEEN ESTABLISHED BASED ON THE FOURTH UNIVERSAL DEFINITIONS OF MYOCARDIALINFARCTION. THE UPPER REFERENCE LIMIT (URL) OF TROPONIN, DEFINED THE 99TH PERCENTILE OFcTnI DISTRIBUTION IN A REFERENCE POPULATION, HAS BEEN CONFIRMED THE DECISION THRESHOLDFOR ND DIAGNOSIS. Performed By: #### B DOUGHNUT MACHINE OPERATOR HELPER, CMADM, CMP ####[facility] [address]ds[address] [place] [address]Dr. Donna Malone BINDU 68 ng/mL Normal 16-96 [facility] Comment on above: Performed By: #### B DOUGHNUT MACHINE OPERATOR HELPER, CMADM, CMP ####[facility] Payditfkmz[address] [place] [address]Dr. Donna Malone CBC AUTO DIFFon 01-17-2023 BASO # 0.1 103/ul Normal 0.0-0.1 [facility] Comment on above: Performed By: #### C BC ####[facility] M[address] [place], [place] [address]Dr. Donna Malone Basophils/100 WBC (Bld) 0.8 % Normal 0.2-2.0 [facility] Comment on above: Performed By: #### C BC ####[facility] [address] [place], [place] [address]Dr. Donna Malone EO # 0.1 103/ul Normal 0.0-0.7 [facility] Comment on above: Performed By: #### C BC ####[facility] [address] [place], [place] [address]Dr. Donna Malone Eosinophils/100 WBC (Bld) 1.4 % Normal 0.9-7.0 [facility] Comment on above: Performed By: #### C BC ####[facility] [address] [place], [place] [address]Dr. Donna Malone Erythrocyte distribution width (RBC) [Ratio] 14.6 % Normal 11.0-15.0 [facility] Comment on above: Performed By: #### C BC ####[facility] [address] [place], [place] [address]Dr. Donna Malone Hematocrit (Bld) [Volume fraction] 43.9 % Normal 42.0-54.0 [facility] Comment on above: Performed By: #### C BC ####[facility] H[address]ireapsp[address] [place] [address]Dr. Donna Malone Hemoglobin (Bld) [Mass/Vol] 14.2 g/dL Normal 14.0-18.0 [facility] Comment on above: Performed By: #### C BC ####[facility] [address]jopzw[address] [place] [address]Dr. Donna Malone IG # 0.04 10e3/ul Critically high 0.00-0.03 [facility] Comment on above: Performed By: #### C BC ####[facility] [address] [place], [place] [address]Dr. Donna Malone IG % 0.4 % Normal 0.0-0.5 [facility] Comment on above: Performed By: #### C BC ####[facility] Sy[address] [place], [place] [address]Dr. Donna Malone LYMPH # 2.3 103/ul Normal 1.2-3.8 [facility] Comment on above: Performed By: #### C BC ####[facility] Ehxxt[address] [place], [place] [address]Dr. Donna Malone Lymphocytes/100 WBC (Bld) 25.4 % Normal 20.5-60.0 [facility] Comment on above: Performed By: #### C BC ####[facility] [address]oz[address] [place], [place] [address]Dr. Donna Malone MANUAL DIFF REQ NO Normal [facility] Comment on above: Performed By: #### C BC ####[facility] [address] [place], [place] [address]Dr. Donna Malone MCH (RBC) [Entitic mass] 29.6 pg Normal 25.9-34.0 [facility] Comment on above: Performed By: #### C BC ####[facility] [address] [place], [place] [address]Dr. Donna Malone MCHC (RBC) [Mass/Vol] 32.3 g/dL Normal 29.9-35.2 [facility] Comment on above: Performed By: #### C BC ####[facility] N[address]nt[address] [place] [id number]. Donna Malone MCV (RBC) [Entitic vol] 91.5 fL Normal 80.0-94.0 [facility] Comment on above: Performed By: #### C BC ####[facility] H[address]fe[address] [place] [id number]. Donna Malone MONO # 0.7 103/ul Normal 0.3-0.8 [facility] Comment on above: Performed By: #### C BC ####[facility] Goyvgtuvsj[address]98 [place] [id number]. Donna Faisal Monocytes/100 WBC (Bld) 7.5 % Normal 1.7-12.0 [facility] Comment on above: Performed By: #### C BC ####[facility] [address] [place], [place] [address]Dr. Donna Malone NEUT # 5.9 103/ul Normal 1.4-6.5 [facility] Comment on above: Performed By: #### C BC ####[facility] [address] [place], [place] [address]Dr. Rubyyvan Malone Neutrophils/100 WBC (Bld) 64.5 % Normal 43.0-75.0 [facility] Comment on above: Performed By: #### C BC ####[facility] [address] [place], [place] [address]Dr. Donna Faisal Platelet mean volume (Bld) [Entitic vol] 10.6 fL Normal 9.5-13.5 [facility] Comment on above: Performed By: #### C BC ####[facility] Naz[address] [place], [place] [address]Dr. Donna Faisal PLT 296 103/ul Normal 150-450 [facility] Comment on above: Performed By: #### C BC ####[facility] [address]use[address] [place], [place] [address]Dr. Donna Malone RBC 4.80 106/ul Normal 4.70-6.10 [facility] Comment on above: Performed By: #### C BC ####[facility] Mkbmpnrqfq[address] [place] [phone]. Donna Malone WBC 9.1 103/ul Normal 4.0-11.0 [facility] Comment on above: Performed By: #### C BC ####[facility] El[address] [place] [phone]. Donna Malone CT CSPINE WO CONon 3 CT CSPINE WO CON Normal [facility] CT HEAD WO CONon 3 CT HEAD WO CON Normal [facility] CT LSPINE WO CONon 3 CT LSPINE WO CON Normal [facility] PROF 14(COMP METB)on 023 Albumin [Mass/Vol] 3.3 g/dL Critically low 3.4-5.0 Th e [facility] Comment on above: Performed By: #### B DOUGHNUT MACHINE OPERATOR HELPER, CMADM, CMP ####[facility] [address] [place] [address]Dr. Donna Malone Albumin/Globulin [Mass ratio] 0.8 {ratio} Normal [facility] Comment on above: Performed By: #### B DOUGHNUT MACHINE OPERATOR HELPER, CMADM, CMP ####[facility] Xu[address]hqwl[address] [place] [address]Dr. Donna Malone ALP [Catalytic activity/Vol] 55 U/L Normal 46-116 [facility] Comment on above: Performed By: #### B DOUGHNUT MACHINE OPERATOR HELPER, CMADM, CMP ####[facility] Kfdmlslxxc4[address] [place] [address]Dr. Donna Malone ALT [Catalytic activity/Vol] 15 U/L Critically low 16-63 [facility] Comment on above: Performed By: #### B DOUGHNUT MACHINE OPERATOR HELPER, CMADM, CMP ####[facility] Bdflpnggdq2511 [place] [address]Dr. Donna Malone Anion gap [Moles/Vol] 9.6 mmol/L Normal [facility] Comment on above: Performed By: #### B DOUGHNUT MACHINE OPERATOR HELPER, CMADM, CMP ####[facility] Mbuowctqwm[address] [place] [address]Dr. Donna Malone AST [Catalytic activity/Vol] 14 U/L Critically low 15-37 [facility] Comment on above: Performed By: #### B DOUGHNUT MACHINE OPERATOR HELPER, CMADM, CMP ####[facility] Gwpswngofk[address] [place] [address]Dr. Donna Malone Bilirubin [Mass/Vol] 0.2 mg/dL Normal 0.2-1.0 [facility] Comment on above: Performed By: #### B DOUGHNUT MACHINE OPERATOR HELPER, CMADM, CMP ####[facility] Sdjjtwrnvi7985 [place] [address]Dr. Donna Malone Calcium [Mass/Vol] 8.6 mg/dL Normal 8.5-10.1 [facility] Comment on above: Performed By: #### B DOUGHNUT MACHINE OPERATOR HELPER, CMADM, CMP ####[facility] [address] [place], [place] [address]Dr. Donna Malone Chloride [Moles/Vol] 107 mmol/L Normal 98-107 [facility] Comment on above: Performed By: #### B DOUGHNUT MACHINE OPERATOR HELPER, CMADM, CMP ####[facility] Tbtsdfbbrm[address] [place], [place] [address]Dr. Donna Malone CO2 [Moles/Vol] 25.9 mmol/L Normal 21.0-32.0 [facility] Comment on above: Performed By: #### B DOUGHNUT MACHINE OPERATOR HELPER, CMADM, CMP ####[facility] [address] [place], [place] [address]Dr. Donna aMlone Creatinine [Mass/Vol] 1.12 mg/dL Normal 0.70-1.30 [facility] Comment on above: Performed By: #### B DOUGHNUT MACHINE OPERATOR HELPER, CMADM, CMP ####[facility] Jktmaerocs[address]51 [place] [address]Dr. Donna Malone EGFR-AF LEBANESE >60 Normal >=60 [facility] Comment on above: Performed By: #### B DOUGHNUT MACHINE OPERATOR HELPER, CMADM, CMP ####[facility] Nldldomzbd6490 [place] [address]Dr. Donna Malone EGFR-NON AF LEBANESE >60 Normal >=60 [facility] Comment on above: Performed By: #### B DOUGHNUT MACHINE OPERATOR HELPER, CMADM, CMP ####[facility] Enuezawvqe2167 [place] [address]Dr. Donna Malone Globulin (S) [Mass/Vol] 4.2 g/dL Normal [facility] Comment on above: Performed By: #### B DOUGHNUT MACHINE OPERATOR HELPER, CMADM, CMP ####[facility] Uvdkxjotel6418 [place] [address]Dr. Donna Malone Glucose [Mass/Vol] 163 mg/dL Critically high 74-106 [facility] Comment on above: Performed By: #### B DOUGHNUT MACHINE OPERATOR HELPER, CMADM, CMP ####[facility] Kzbcxwtghk1609 [place] [address]Dr. Donna Malone Potassium [Moles/Vol] 4.5 mmol/L Normal 3.5-5.1 [facility] Comment on above: Performed By: #### B DOUGHNUT MACHINE OPERATOR HELPER, CMADM, CMP ####[facility] Pmmwciropi[address]65 [place] [address]Dr. Donna Malone Protein [Mass/Vol] 7.5 g/dL Normal 6.4-8.2 [facility] Comment on above: Performed By: #### B DOUGHNUT MACHINE OPERATOR HELPER, CMADM, CMP ####[facility] Vtsrildoeh8236 [place] [address]Dr. Donna Malone Sodium [Moles/Vol] 138 mmol/L Normal 136-145 [facility] Comment on above: Performed By: #### B DOUGHNUT MACHINE OPERATOR HELPER, CMADM, CMP ####[facility] Xsxzovsslg3009 [place] [address]Dr. Donna Malone Urea nitrogen [Mass/Vol] 11.0 mg/dL Normal 7.0-18.0 [facility] Comment on above: Performed By: #### B DOUGHNUT MACHINE OPERATOR HELPER, CMADM, CMP ####[facility] Csnxwdtdce[address] [place] [address]Dr. Donna Malone Urea nitrogen/Creatinine [Mass ratio] 9.8 mg/mg Normal [facility] Comment on above: Performed By: #### B DOUGHNUT MACHINE OPERATOR HELPER, CMADM, CMP ####[facility] Acedbtpiov7[address] [place] [address]Dr. Donna Malone PROTIMEon 01-17-2023 INR Coag (PPP) [Relative time] 0.94 {INR} Normal [facility] Comment on above: Performed By: #### P TT, PT ####[facility] Hyrvndurdl[address] [place], [place] [address]Dr. Donna Malone INR GUIDELINES SEE BELOW Normal [facility] Comment on above: Result Comment: FLORESITA RED INR: 2.0 - 3.0 CONDITIONS NOT LISTED BELOW 2.5 - 3.5 FOR PROSTHETIC HEART VALVE REPLACEMENT 2.5 - 3.5 RECURRENT THROMBOSIS Performed By: #### P TT, PT ####[facility] [address]vzdttj[address] [place], [place] [address]Dr. Donna Malone PT Coag (PPP) [Time] 10.0 s Normal 9.0-11.6 [facility] Comment on above: Performed By: #### P TT, PT ####[facility] [address]efy[address]mmof[address] [place], [place] [address]Dr. Donna Malone PTTon 01-17-2023 aPTT Coag (Bld) [Time] 29.6 s Normal 22.3-36.2 [facility] Comment on above: Performed By: #### P TT, PT ####[facility] Qvpcoxmupi[address] [place], [place] [address]DrElizabeth Malone CBC AUTO DIFFon 11-17-2022 BASO # 0.0 103/ul Normal 0.0-0.1 [facility] Comment on above: Performed By: #### C BC ####[facility] Dmalhbveyu[address] [place], [place] [address]DrElizabeth Malone Basophils/100 WBC (Bld) 0.2 % Normal 0.2-2.0 [facility] Comment on above: Performed By: #### C BC ####[facility] Xebeofnzmr[address] [place], [place] [address]DrElizabeth Malone EO # 0.0 103/ul Normal 0.0-0.7 [facility] Comment on above: Performed By: #### C BC ####[facility] [address]ogimxmg[address] [place], [place] [address]DrElizabeth Malone Eosinophils/100 WBC (Bld) 0.0 % Critically low 0.9-7.0 [facility] Comment on above: Performed By: #### C BC ####[facility] Enzrrqniwo[address] [place], [place] [address]DrlEizabeth Malone Erythrocyte distribution width (RBC) [Ratio] 14.5 % Normal 11.0-15.0 [facility] Comment on above: Performed By: #### C BC ####[facility] B[address]vjoptuhf[address] [place], [place] [address]DrElizabeth Malone Hematocrit (Bld) [Volume fraction] 39.6 % Critically low 42.0-54.0 [facility] Comment on above: Performed By: #### C BC ####[facility] Dhlojpmoez[address] [place], [place] [address]DrElizabeth Malone Hemoglobin (Bld) [Mass/Vol] 13.3 g/dL Critically low 14.0-18.0 [facility] Comment on above: Performed By: #### C BC ####[facility] Yvstpwumdx[address] [place], [place] [address]Dr. Donna Malone IG # 0.06 10e3/ul Critically high 0.00-0.03 [facility] Comment on above: Performed By: #### C BC ####[facility] K[address]wdhwcvfz[address] [place], [place] [address]DrElizabeth Malone IG % 0.5 % Normal 0.0-0.5 [facility] Comment on above: Performed By: #### C BC ####[facility] [address]isoz[address] [place], [place] [address]DrElizabeth Malone LYMPH # 1.0 103/ul Critically low 1.2-3.8 [facility] Comment on above: Performed By: #### C BC ####[facility] Iunupuvbih[address] [place], [place] [address]DrElizabeth Malone Lymphocytes/100 WBC (Bld) 8.3 % Critically low 20.5-60.0 [facility] Comment on above: Performed By: #### C BC ####[facility] Enjwxpqouz[address] [place], [place] [address]DrElizabeth Malone MANUAL DIFF REQ NO Normal [facility] Comment on above: Performed By: #### C BC ####[facility] Bpzututxnw9595 [place] [address]DrElizabeth Malone MCH (RBC) [Entitic mass] 29.4 pg Normal 25.9-34.0 [facility] Comment on above: Performed By: #### C BC ####[facility] Lodqwaoilk2146 [place] [address]DrElizabeth Malone MCHC (RBC) [Mass/Vol] 33.6 g/dL Normal 29.9-35.2 [facility] Comment on above: Performed By: #### C BC ####[facility] [address]cjhxj[address] [place], [place] [address]DrElizabeth Malone MCV (RBC) [Entitic vol] 87.6 fL Normal 80.0-94.0 [facility] Comment on above: Performed By: #### C BC ####[facility] [address]jljpslct[address] [place], [place] [address]DrElizabeth Malone MONO # 0.8 103/ul Normal 0.3-0.8 [facility] Comment on above: Performed By: #### C BC ####[facility] [address]ve[address]jho[address] [place], [place] [address]DrElizabeth Malone Monocytes/100 WBC (Bld) 6.6 % Normal 1.7-12.0 [facility] Comment on above: Performed By: #### C BC ####[facility] [address]efmvplalk[address] [place], [place] [address]DrElizabeth Malone NEUT # 10.2 103/ul Critically high 1.4-6.5 [facility] Comment on above: Performed By: #### C BC ####[facility] [address]zwwnh[address] [place], [place] [address]DrElizabeth Malone Neutrophils/100 WBC (Bld) 84.4 % Critically high 43.0-75.0 [facility] Comment on above: Performed By: #### C BC ####[facility] Vzsu[address]sk[address] [place], [place] [address]DrElizabeth Malone Platelet mean volume (Bld) [Entitic vol] 11.5 fL Normal 9.5-13.5 [facility] Comment on above: Performed By: #### C BC ####[facility] Xazvhxyfwl8[address] [place] [phone]. Donna Malone PLT 204 103/ul Normal 150-450 [facility] Comment on above: Performed By: #### C BC ####[facility] Pgievfecfz8874 [place] [address]Dr. Donna Malone RBC 4.52 106/ul Critically low 4.70-6.10 [facility] Comment on above: Performed By: #### C BC ####[facility] Htazvhpiyr7050 [place] [address]Dr. Donna Malone WBC 12.0 103/ul Critically high 4.0-11.0 [facility] Comment on above: Performed By: #### C BC ####[facility] Gfzjdkahsd6464 [place] [address]Dr. Rubyyvan Malone MAGNESIUMon 11-17-2022 Magnesium [Mass/Vol] 1.9 mg/dL Normal 1.8-2.4 [facility] Comment on above: Performed By: #### C MP, MG ####[facility] Euytairici6546 [place] [address]Dr. Donna Faisal PROF 14(COMP METB)on 023 Albumin [Mass/Vol] 3.2 g/dL Critically low 3.4-5.0 [facility] Comment on above: Performed By: #### C MP, MG ####[facility] Bgvhvxlsiv24[address] [place] [address]Dr. Donna Faisal Albumin/Globulin [Mass ratio] 1.0 {ratio} Normal [facility] Comment on above: Performed By: #### C MP, MG ####[facility] Kikyzvhbov6465 [place] [address]Dr. Donna Malone ALP [Catalytic activity/Vol] 51 U/L Normal 46-116 [facility] Comment on above: Performed By: #### C MP, MG ####[facility] Theayeqlkr6493 [place] [phone]. Donna Malone ALT [Catalytic activity/Vol] 16 U/L Normal 16-63 [facility] Comment on above: Performed By: #### C MP, MG ####[facility] Pipnqovxdg6186 [place] [phone]. Donna Malone Anion gap [Moles/Vol] 14.7 mmol/L Normal Th e [facility] Comment on above: Performed By: #### C MP, MG ####[facility] Hsbzmerbbw5541 [place] [address]Dr. Donna Malone AST [Catalytic activity/Vol] 24 U/L Normal 15-37 [facility] Comment on above: Performed By: #### C MP, MG ####[facility] Sjsiywumwf[address] [place], [place] [address]Dr. Donna Malone Bilirubin [Mass/Vol] 0.5 mg/dL Normal 0.2-1.0 [facility] Comment on above: Performed By: #### C MP, MG ####[facility] Sewbmszsjr1447 [place] [address]Dr. Donna Malone Calcium [Mass/Vol] 8.6 mg/dL Normal 8.5-10.1 [facility] Comment on above: Performed By: #### C MP, MG ####[facility] Iqeqbglktz5105 [place] [address]Dr. Donna Malone Chloride [Moles/Vol] 108 mmol/L Critically high 98-107 [facility] Comment on above: Performed By: #### C MP, MG ####[facility] Ayjmggcmig5121 [place] [phone]. Donna Malone CO2 [Moles/Vol] 21.6 mmol/L Normal 21.0-32.0 [facility] Comment on above: Performed By: #### C MP, MG ####[facility] Zxokynqnww[address] [place], [place] [address]Dr. Donna Malone Creatinine [Mass/Vol] 0.83 mg/dL Normal 0.70-1.30 [facility] Comment on above: Performed By: #### C MP, MG ####[facility] Hwqnfnsqlw4584 [place] [phone]. Donna Malone EGFR-AF LEBANESE >60 Normal >=60 [facility] Comment on above: Performed By: #### C MP, MG ####[facility] Rumevpmwez7617 [place] [phone]. Donna Malone EGFR-NON AF LEBANESE >60 Normal >=60 [facility] Comment on above: Performed By: #### C MP, MG ####[facility] Fqthquemxx4179 [place] [phone]. Donna Malone Globulin (S) [Mass/Vol] 3.2 g/dL Normal [facility] Comment on above: Performed By: #### C MP, MG ####[facility] Rzbylqqndd9978 [place] [address]Dr. Donna Malone Glucose [Mass/Vol] 162 mg/dL Critically high 74-106 [facility] Comment on above: Performed By: #### C MP, MG ####[facility] Wvwtczfuva9949 [place] [address]Dr. Donna Malone Potassium [Moles/Vol] 3.3 mmol/L Critically low 3.5-5.1 [facility] Comment on above: Performed By: #### C MP, MG ####[facility] Avrzywahux4846 [place] [phone]. Donna Malone Protein [Mass/Vol] 6.4 g/dL Normal 6.4-8.2 [facility] Comment on above: Performed By: #### C MP, MG ####[facility] Wgarhpwlxu0211 [place] [address]Dr. Donna Malone Sodium [Moles/Vol] 141 mmol/L Normal 136-145 [facility] Comment on above: Performed By: #### C MP, MG ####[facility] Nnhezrijub6172 [place] [address]Dr. Donna Malone Urea nitrogen [Mass/Vol] 12.0 mg/dL Normal 7.0-18.0 [facility] Comment on above: Performed By: #### C MP, MG ####[facility] Vmyfimaqly5520 [place] [address]Dr. Donna Malone Urea nitrogen/Creatinine [Mass ratio] 14.5 mg/mg Normal [facility] Comment on above: Performed By: #### C MP, MG ####[facility] Hvahemkjyd2320 [place] [address]Dr. Donna Faisal AMMONIAon 11-16-2022 Ammonia (P) [Mass/Vol] ug/dL Critically low 11-32 [facility] Comment on above: Performed By: #### A MM ####[facility] [address]awwdv[address] [place], [place] [address]Dr. Donna Faisal CBC AUTO DIFFon 11-16-2022 BASO # 0.0 103/ul Normal 0.0-0.1 [facility] Comment on above: Performed By: #### C BC ####[facility] Obqxfalbmh9[address] [place], [place] [address]Dr. Donna Malone Basophils/100 WBC (Bld) 0.2 % Normal 0.2-2.0 [facility] Comment on above: Performed By: #### C BC ####[facility] Zaepagyfmq364[address] [place], [place] [address]Dr. Donna Faisal EO # 0.0 103/ul Normal 0.0-0.7 [facility] Comment on above: Performed By: #### C BC ####[facility] Upbszppvpu264[address] [place], [place] [address]Dr. Rubyyvan Malone Eosinophils/100 WBC (Bld) 0.0 % Critically low 0.9-7.0 [facility] Comment on above: Performed By: #### C BC ####[facility] Pdntpsejtk5[address] [place], [place] [address]Dr. Donna Malone Erythrocyte distribution width (RBC) [Ratio] 14.4 % Normal 11.0-15.0 [facility] Comment on above: Performed By: #### C BC ####[facility] Izenmokejf01[address] [place], [place] [address]Dr. Donna Malone Hematocrit (Bld) [Volume fraction] 38.6 % Critically low 42.0-54.0 [facility] Comment on above: Performed By: #### C BC ####[facility] Epotfybkxx3202 [place] [address]DrElizabeth Donna Faisal Hemoglobin (Bld) [Mass/Vol] 13.1 g/dL Critically low 14.0-18.0 [facility] Comment on above: Performed By: #### C BC ####[facility] Zmnkxqoced5495 [place] [address]DrElizabeth Malone IG # 0.05 10e3/ul Critically high 0.00-0.03 [facility] Comment on above: Performed By: #### C BC ####[facility] Zlqbsijkcy5[address] [place], [place] [address]DrElizabeth Malone IG % 0.5 % Normal 0.0-0.5 [facility] Comment on above: Performed By: #### C BC ####[facility] Skjgcnpnvq[address] [place], [place] [address]DrElizabeth Malone LYMPH # 1.0 103/ul Critically low 1.2-3.8 [facility] Comment on above: Performed By: #### C BC ####[facility] Jmjbejqbsc[address] [place], [place] [address]DrElizabeth Malone Lymphocytes/100 WBC (Bld) 10.8 % Critically low 20.5-60.0 [facility] Comment on above: Performed By: #### C BC ####[facility] Grebspwdza[address] [place], [place] [address]DrElizabeth Malone MANUAL DIFF REQ NO Normal [facility] Comment on above: Performed By: #### C BC ####[facility] Lbicgjnskg80[address] [place], [place] [address]DrElizabeth Malone MCH (RBC) [Entitic mass] 29.4 pg Normal 25.9-34.0 [facility] Comment on above: Performed By: #### C BC ####[facility] Cjxypkgljg2846 [place] [address]DrElizabeth Malone MCHC (RBC) [Mass/Vol] 33.9 g/dL Normal 29.9-35.2 [facility] Comment on above: Performed By: #### C BC ####[facility] Vecxcwfpmf1881 [place] [phone] Donna Malone MCV (RBC) [Entitic vol] 86.7 fL Normal 80.0-94.0 [facility] Comment on above: Performed By: #### C BC ####[facility] Eouxnvsqlm6901 [place] [phone] Donna Faisal MONO # 0.4 103/ul Normal 0.3-0.8 [facility] Comment on above: Performed By: #### C BC ####[facility] Pqbokdgryx0231 [place] [address]Dr. Rubyyvan Malone Monocytes/100 WBC (Bld) 4.4 % Normal 1.7-12.0 [facility] Comment on above: Performed By: #### C BC ####[facility] Pcykqdbhcz[address] [place], [place] [address]Dr. Donna Malone NEUT # 7.9 103/ul Critically high 1.4-6.5 [facility] Comment on above: Performed By: #### C BC ####[facility] Kckthxwfwm[address] [place], [place] [address]Dr. Rubyyvan Malone Neutrophils/100 WBC (Bld) 84.1 % Critically high 43.0-75.0 [facility] Comment on above: Performed By: #### C BC ####[facility] Qlaqiquqlv47[address] [place], [place] [address]Dr. Donna Faisal Platelet mean volume (Bld) [Entitic vol] 11.3 fL Normal 9.5-13.5 [facility] Comment on above: Performed By: #### C BC ####[facility] Piicbedeap[address] [place], [place] [id number]. Donna Malone PLT 201 103/ul Normal 150-450 [facility] Comment on above: Performed By: #### C BC ####[facility] Lbtdbkjkgp5291 [place] [phone] Malone RBC 4.45 106/ul Critically low 4.70-6.10 [facility] Comment on above: Performed By: #### C BC ####[facility] Kmzevacmwz2871 [place] [address]Dr. Donna Malone WBC 9.3 103/ul Normal 4.0-11.0 [facility] Comment on above: Performed By: #### C BC ####[facility] Hmarwiusmi[address] [place], [place] [address]Dr. Donna Malone GLYCOHEMOGLOBIN A1Con 2022 ADA RECOMMENDATION SEE BELOW Normal [facility] Comment on above: Result Comment: ADA RECOMMENDED LIMIT 4.0 - 6.0 ADA THERAPEUTIC TARGET < 7.0 ACTION SUGGESTED > 7.0 Performed By: #### A 1C ####[facility] Cqlqvpksmb[address] [place], [place] [address]Dr. Donna Malone Glucose [Mass/Vol] 128 mg/dL Normal [facility] Comment on above: Performed By: #### A 1C ####[facility] Mnokruohav9[address] [place], [place] [address]Dr. Donna Malone HbA1c (Bld) [Mass fraction] 6.1 % Normal 4.5-6.2 [facility] Comment on above: Performed By: #### A 1C ####[facility] Nszcckdalj[address] [place], [place] [address]Dr. Donna Malone MAGNESIUMon 11-16-2022 Magnesium [Mass/Vol] 1.8 mg/dL Normal 1.8-2.4 [facility] Comment on above: Performed By: #### C MP, MG ####[facility] Eidxirlxqj[address] [place], [place] [address]Dr. Donna Malone POINT OF CARE GLUCOSEon 11-07 Glucose [Mass/Vol] 170 mg/dL Critically high 74-106 [facility] Comment on above: Performed By: #### P OCGLUC ####[facility] Kochiaqpcn70[address] [place], [place] [address]Dr. Donna Malone Glucose [Mass/Vol] 158 mg/dL Critically high 74-106 [facility] Comment on above: Performed By: #### P OCGLUC ####[facility] Kdnxporwwr5731 [place] [address]Dr. Donna Malone Glucose [Mass/Vol] 176 mg/dL Critically high 74-106 [facility] Comment on above: Performed By: #### P OCGLUC ####[facility] Ndwgiavwdd7205 [place] [address]Dr. Donna Malone PROF 14(COMP METB)on 023 Albumin [Mass/Vol] 3.1 g/dL Critically low 3.4-5.0 [facility] Comment on above: Performed By: #### C MP, MG ####[facility] Chzoeetndu2932 [place] [address]Dr. Donna Malone Albumin/Globulin [Mass ratio] 0.9 {ratio} Normal [facility] Comment on above: Performed By: #### C MP, MG ####[facility] Ukkespbibe7038 [place] [address]Dr. Donna Malone ALP [Catalytic activity/Vol] 52 U/L Normal 46-116 [facility] Comment on above: Performed By: #### C MP, MG ####[facility] Jcgawubvcx4733 [place] [address]Dr. Donna Malone ALT [Catalytic activity/Vol] 13 U/L Critically low 16-63 [facility] Comment on above: Performed By: #### C MP, MG ####[facility] Eycbygulwm5322 [place] [address]Dr. Donna Malone Anion gap [Moles/Vol] 15.7 mmol/L Normal [facility] Comment on above: Performed By: #### C MP, MG ####[facility] Cxxbjnojxw1814 [place] [address]Dr. Donna Malone AST [Catalytic activity/Vol] 16 U/L Normal 15-37 [facility] Comment on above: Performed By: #### C MP, MG ####[facility] Obhoyjtzac1015 [place] [address]Dr. Donna Malone Bilirubin [Mass/Vol] 0.5 mg/dL Normal 0.2-1.0 [facility] Comment on above: Performed By: #### C MP, MG ####[facility] Nizcnfrnbi7716 [place] [address]Dr. Donna Malone Calcium [Mass/Vol] 8.6 mg/dL Normal 8.5-10.1 [facility] Comment on above: Performed By: #### C MP, MG ####[facility] Vhtfygjlcz0092 [place] [address]Dr. Donna Malone Chloride [Moles/Vol] 109 mmol/L Critically high 98-107 [facility] Comment on above: Performed By: #### C MP, MG ####[facility] Fawdxfqxpa7143 [place] [address]Dr. Donna Malone CO2 [Moles/Vol] 21.7 mmol/L Normal 21.0-32.0 [facility] Comment on above: Performed By: #### C MP, MG ####[facility] Drgqnexvds37[address] [place], [place] [address]Dr. Donna Malone Creatinine [Mass/Vol] 0.99 mg/dL Normal 0.70-1.30 [facility] Comment on above: Performed By: #### C MP, MG ####[facility] Hdvqiwtedg67[address] [place], [place] [address]Dr. Donna Malone EGFR-AF LEBANESE >60 Normal >=60 [facility] Comment on above: Performed By: #### C MP, MG ####[facility] Bpzrtzetza9810 [place] [address]Dr. Donna Malone EGFR-NON AF LEBANESE >60 Normal >=60 [facility] Comment on above: Performed By: #### C MP, MG ####[facility] Gkeprseofc7070 [place] [address]Dr. Donna Malone Globulin (S) [Mass/Vol] 3.3 g/dL Normal [facility] Comment on above: Performed By: #### C MP, MG ####[facility] Atibxkuuwi0899 [place] [address]Dr. Donna Malone Glucose [Mass/Vol] 168 mg/dL Critically high 74-106 [facility] Comment on above: Performed By: #### C MP, MG ####[facility] Gvctngmrsg5681 [place] [address]Dr. Donna Malone Potassium [Moles/Vol] 3.4 mmol/L Critically low 3.5-5.1 [facility] Comment on above: Performed By: #### C MP, MG ####[facility] Gsanogziqg[address] [place], [place] [address]Dr. Donna Malone Protein [Mass/Vol] 6.4 g/dL Normal 6.4-8.2 [facility] Comment on above: Performed By: #### C MP, MG ####[facility] Itjpbmxgdf135[address] [place], [place] [address]Dr. Donna Malone Sodium [Moles/Vol] 143 mmol/L Normal 136-145 [facility] Comment on above: Performed By: #### C MP, MG ####[facility] Oisgxfphof79[address] [place], [place] [address]Dr. Donna Malone Urea nitrogen [Mass/Vol] 9.0 mg/dL Normal 7.0-18.0 [facility] Comment on above: Performed By: #### C MP, MG ####[facility] Vqaaulnwcd38[address] [place], [place] [address]Dr. Donna Malone Urea nitrogen/Creatinine [Mass ratio] 9.1 mg/mg Normal [facility] Comment on above: Performed By: #### C MP, MG ####[facility] Pcxknuxjbj44[address] [place], [place] [address]Dr. Donna Faisal XR CHEST 2 Von 11-16-2022 XR CHEST 2 V Normal [facility] AMMONIAon 11-15-2022 Ammonia (P) [Moles/Vol] 20 umol/L Normal 11-32 [facility] Comment on above: Performed By: #### A MM ####[facility] Kngdavycwr[address] [place], [place] [address]Dr. Donna Faisal CBC AUTO DIFFon 11-15-2022 BASO # 0.0 103/ul Normal 0.0-0.1 [facility] Comment on above: Performed By: #### C BC ####[facility] Jgcjwynonh7793 [place] [phone]. Donna Malone Basophils/100 WBC (Bld) 0.5 % Normal 0.2-2.0 [facility] Comment on above: Performed By: #### C BC ####[facility] Jaydttbqix9732 [place] [phone]. Donna Malone EO # 0.1 103/ul Normal 0.0-0.7 [facility] Comment on above: Performed By: #### C BC ####[facility] Buthcjwcar44[address] [place], [place] [address]Dr. Donna Malone Eosinophils/100 WBC (Bld) 1.4 % Normal 0.9-7.0 [facility] Comment on above: Performed By: #### C BC ####[facility] Ixkdcacyam[address] [place], [place] [address]Dr. Donna Malone Erythrocyte distribution width (RBC) [Ratio] 14.6 % Normal 11.0-15.0 [facility] Comment on above: Performed By: #### C BC ####[facility] Szvtlsvlgp[address] [place], [place] [id number]. Donna Malone Hematocrit (Bld) [Volume fraction] 36.8 % Critically low 42.0-54.0 [facility] Comment on above: Performed By: #### C BC ####[facility] [address]lwhlgqgod[address] [place], [place] [address]Dr. Donna Malone Hemoglobin (Bld) [Mass/Vol] 12.1 g/dL Critically low 14.0-18.0 [facility] Comment on above: Performed By: #### C BC ####[facility] Wiewfoxepu[address] [place], [place] [address]Dr. Donna Malone IG # 0.01 10e3/ul Normal 0.00-0.03 [facility] Comment on above: Performed By: #### C BC ####[facility] Waykfwpefd[address] [place], [place] [address]Dr. Donna Malone IG % 0.2 % Normal 0.0-0.5 [facility] Comment on above: Performed By: #### C BC ####[facility] Idmufqeuwx0303 [place] [phone]. Donna Malone LYMPH # 1.7 103/ul Normal 1.2-3.8 [facility] Comment on above: Performed By: #### C BC ####[facility] Pgdqtxfpti2003 [place] [phone]. Donna Malone Lymphocytes/100 WBC (Bld) 27.0 % Normal 20.5-60.0 [facility] Comment on above: Performed By: #### C BC ####[facility] Luanccxzvl6259 [place] [phone]. Donna Faisal MANUAL DIFF REQ NO Normal [facility] Comment on above: Performed By: #### C BC ####[facility] Ixvnkzvmtj0412 [place] [phone]. Donna Faisal MCH (RBC) [Entitic mass] 29.5 pg Normal 25.9-34.0 [facility] Comment on above: Performed By: #### C BC ####[facility] Mvlqmwefdt9494 [place] [phone]. Donna Malone MCHC (RBC) [Mass/Vol] 32.9 g/dL Normal 29.9-35.2 [facility] Comment on above: Performed By: #### C BC ####[facility] Cuesvnqrvx4070 [place] [phone]. Donna Malone MCV (RBC) [Entitic vol] 89.8 fL Normal 80.0-94.0 [facility] Comment on above: Performed By: #### C BC ####[facility] Szgsyvhzcq1625 [place] [phone]. Donna Malone MONO # 0.4 103/ul Normal 0.3-0.8 [facility] Comment on above: Performed By: #### C BC ####[facility] Ucmaqxapna7590 [place] [phone]. Donna Faisal Monocytes/100 WBC (Bld) 6.7 % Normal 1.7-12.0 [facility] Comment on above: Performed By: #### C BC ####[facility] Uyldkdhxah9143 [place] [phone]. Donna Malone NEUT # 4.0 103/ul Normal 1.4-6.5 [facility] Comment on above: Performed By: #### C BC ####[facility] Aqvdsootex1380 [place] [phone]. Donna Malone Neutrophils/100 WBC (Bld) 64.2 % Normal 43.0-75.0 [facility] Comment on above: Performed By: #### C BC ####[facility] Kiqivtpyff7562 [place] [phone]. Donna Malone Platelet mean volume (Bld) [Entitic vol] 11.3 fL Normal 9.5-13.5 [facility] Comment on above: Performed By: #### C BC ####[facility] Gqsfkfbohq0638 [place] [phone]. Donna Malone PLT 169 103/ul Normal 150-450 [facility] Comment on above: Performed By: #### C BC ####[facility] Yqcgdcqrgr1690 [place] [phone]. Donna Malone RBC 4.10 106/ul Critically low 4.70-6.10 [facility] Comment on above: Performed By: #### C BC ####[facility] Ozcsptssru4451 [place] [phone]. Donna Malone WBC 6.3 103/ul Normal 4.0-11.0 [facility] Comment on above: Performed By: #### C BC ####[facility] Nmxdkztgha5314 [place] [phone]. Donna Malone GLYCOHEMOGLOBIN A1Con 2022 ADA RECOMMENDATION SEE BELOW Normal [facility] Comment on above: Result Comment: ADA RECOMMENDED LIMIT 4.0 - 6.0 ADA THERAPEUTIC TARGET < 7.0 ACTION SUGGESTED > 7.0 Performed By: #### A 1C ####[facility] [address]ucgu[address] [place] [id number]. Donna Malone Glucose [Mass/Vol] 128 mg/dL Normal [facility] Comment on above: Performed By: #### A 1C ####[facility] Vdmcxwzwre[address] [place] [address]Dr. Donna Malone HbA1c (Bld) [Mass fraction] 6.1 % Normal 4.5-6.2 [facility] Comment on above: Performed By: #### A 1C ####[facility] Klfzyrrmqf[address] [place] [address]Dr. Donna Malone MAGNESIUMon 11-15-2022 Magnesium [Mass/Vol] 1.6 mg/dL Critically low 1.8-2.4 [facility] Comment on above: Performed By: #### C MP, MG ####[facility] Y[address]qdwpkkw[address] [place], [place] [address]Dr. Donna Malone POINT OF CARE GLUCOSEon Glucose [Mass/Vol] 165 mg/dL Critically high 74-106 [facility] Comment on above: Performed By: #### P OCGLUC ####[facility] Tmzrlvkbkh[address] [place], [place] [address]Dr. Donna Malone Glucose [Mass/Vol] 155 mg/dL Critically high 74-106 [facility] Comment on above: Performed By: #### P OCGLUC ####[facility] Dgdwrzdjsa64[address] [place], [place] [address]Dr. Donna Malone Glucose [Mass/Vol] 111 mg/dL Critically high 74-106 [facility] Comment on above: Performed By: #### P OCGLUC ####[facility] Umsukpvfdp04[address] [place], [place] [address]Dr. Donna Malone PROF 14(COMP METB)on 023 Albumin [Mass/Vol] 2.9 g/dL Critically low 3.4-5.0 [facility] Comment on above: Performed By: #### C MP, MG ####[facility] Fmkbgpjvio6[address] [place], [place] [address]Dr. Donna Malone Albumin/Globulin [Mass ratio] 1.0 {ratio} Normal [facility] Comment on above: Performed By: #### C MP, MG ####[facility] Ozlwckymsk7923[address] [place], [place] [address]Dr. Donna Malone ALP [Catalytic activity/Vol] 38 U/L Critically low 46-116 [facility] Comment on above: Performed By: #### C MP, MG ####[facility] Qikhfodnlh0184[address] [place], [place] [address]Dr. Donna Malone ALT [Catalytic activity/Vol] 13 U/L Critically low 16-63 [facility] Comment on above: Performed By: #### C MP, MG ####[facility] Qxbpdqsmuh60[address] [place], [place] [address]Dr. Donna Malone Anion gap [Moles/Vol] 11.8 mmol/L Normal [facility] Comment on above: Performed By: #### C MP, MG ####[facility] Qkxdovkprb27[address] [place], [place] [address]Dr. Donna Malone AST [Catalytic activity/Vol] 15 U/L Normal 15-37 [facility] Comment on above: Performed By: #### C MP, MG ####[facility] Oetrdyakdo4166[address] [place], [place] [address]Dr. Donna Malone Bilirubin [Mass/Vol] 0.4 mg/dL Normal 0.2-1.0 [facility] Comment on above: Performed By: #### C MP, MG ####[facility] Towlimsxqy9838[address] [place], [place] [address]Dr. Donna Malone Calcium [Mass/Vol] 8.2 mg/dL Critically low 8.5-10.1 [facility] Comment on above: Performed By: #### C MP, MG ####[facility] Ymudwmsfhj54[address] [place], [place] [address]Dr. Donna Malone Chloride [Moles/Vol] 111 mmol/L Critically high 98-107 [facility] Comment on above: Performed By: #### C MP, MG ####[facility] Wysjyrzdaj61[address] [place], [place] [address]Dr. Donna Malone CO2 [Moles/Vol] 27.9 mmol/L Normal 21.0-32.0 [facility] Comment on above: Performed By: #### C MP, MG ####[facility] Cfylvkecvc[address] [place] [address]Dr. Donna Malone Creatinine [Mass/Vol] 0.99 mg/dL Normal 0.70-1.30 [facility] Comment on above: Performed By: #### C MP, MG ####[facility] Sfyjjdynfh4[address] [place] [address]Dr. Donna Malone EGFR-AF LEBANESE >60 Normal >=60 [facility] Comment on above: Performed By: #### C MP, MG ####[facility] Wfaymadzdm[address] [place], [place] [address]Dr. Donna Malone EGFR-NON AF LEBANESE >60 Normal >=60 [facility] Comment on above: Performed By: #### C MP, MG ####[facility] Ftfujrsvhl2149[address] [place], [place] [address]Dr. Donna Malone Globulin (S) [Mass/Vol] 2.9 g/dL Normal [facility] Comment on above: Performed By: #### C MP, MG ####[facility] Aagncwshmc1369[address] [place], [place] [address]Dr. Donna Malone Glucose [Mass/Vol] 88 mg/dL Normal 74-106 [facility] Comment on above: Performed By: #### C MP, MG ####[facility] Veynjdeeir9387[address] [place], [place] [address]Dr. Donna Malone Potassium [Moles/Vol] 3.7 mmol/L Normal 3.5-5.1 [facility] Comment on above: Performed By: #### C MP, MG ####[facility] Mfqlargvhi1164[address] [place], [place] [address]Dr. Donna Malone Protein [Mass/Vol] 5.8 g/dL Critically low 6.4-8.2 [facility] Comment on above: Performed By: #### C MP, MG ####[facility] Rnmdjtjnzj7767[address] [place], [place] [address]Dr. Donna Malone Sodium [Moles/Vol] 147 mmol/L Critically high 136-145 [facility] Comment on above: Performed By: #### C MP, MG ####[facility] Xfzfvbredz9[address] [place] [address]Dr. Donna Malone Urea nitrogen [Mass/Vol] 12.0 mg/dL Normal 7.0-18.0 [facility] Comment on above: Performed By: #### C MP, MG ####[facility] Olwibqpsgf5699[address] [place], [place] [address]Dr. Donna Malone Urea nitrogen/Creatinine [Mass ratio] 12.1 mg/mg Normal [facility] Comment on above: Performed By: #### C MP, MG ####[facility] Spaqmortwu[address] [place], [place] [address]Dr. Donna Malone ACETONE SERUMon 11-14-2022 ACETONE Negative Normal NEGATIVE [facility] Comment on above: Performed By: #### A CETON ####[facility] Hexwukozca[address] [place], [place] [address]Dr. Donna Malone AMMONIAon 11-14-2022 Ammonia (P) [Moles/Vol] 17 umol/L Normal 11-32 [facility] Comment on above: Performed By: #### A MM ####[facility] Aohxhexoeh6[address] [place], [place] [address]Dr. Donna Malone BLOOD GASES BTYon 11-14-2022 02 MODE ROOM AIR Normal [facility] Comment on above: Performed By: #### A BG ####[facility] Nidinttmqv9[address] [place], [place] [address]Dr. Donna Malone ALLENS TEST Positive Normal [facility] Comment on above: Performed By: #### A BG ####[facility] Eucimwpcyk9119[address] [place], [place] [address]Dr. Donna Malone Base excess Calc (Bld) [Moles/Vol] 1.1 mmol/L Normal -2.0-2.0 [facility] Comment on above: Performed By: #### A BG ####[facility] Durugvfqyc[address] [place], [place] [address]Dr. Donan Malone BIPAP PRESSURE Normal [facility] Comment on above: Performed By: #### A BG ####[facility] Dlrdyohpmk6[address] [place], [place] [address]Dr. Donna Malone CPAP [facility] Comment on above: Performed By: #### A BG ####[facility] Rrgmiqftxj[address] [place] [address]Dr. Donna Malone FIO2 Normal [facility] Comment on above: Performed By: #### A BG ####[facility] Woplmxfecz1742 [place] [address]Dr. Donna Malone HCO3 (Bld) [Moles/Vol] 26.0 mmol/L Normal 22.0-26.0 [facility] Comment on above: Performed By: #### A BG ####[facility] Wsuotmxptl6[address] [place], [place] [address]Dr. Donna Malone LPM [facility] Comment on above: Performed By: #### A BG ####[facility] Kyfdkmindd3971[address] [place], [place] [address]Dr. Donna Malone MINUTE VOLUME [facility] Comment on above: Performed By: #### A BG ####[facility] Aohmespgfd0688[address] [place], [place] [address]Dr. Donna Malone Oxygen (Bld) [Partial pressure] 62.0 mm[Hg] Critically low 80.0-100.0 [facility] Comment on above: Performed By: #### A BG ####[facility] Lpdxfflhin[address] [place], [place] [address]Dr. Donna Malone Oxygen saturation in Blood 91.9 % Critically low 95.0-100.0 [facility] Comment on above: Performed By: #### A BG ####[facility] Ltjsumawng6612[address] [place], [place] [address]Dr. Donna Malone PCO2 42.8 mmHg Normal 35.0-45.0 [facility] Comment on above: Performed By: #### A BG ####[facility] Tpljuzuioz[address] [place], [place] [address]Dr. Donna Malone PEEP [facility] Comment on above: Performed By: #### A BG ####[facility] Qwcyxpympi1094[address] [place], [place] [address]Dr. Donna Malone pH (Bld) 7.392 [pH] Normal 7.350-7.45 0 [facility] Comment on above: Performed By: #### A BG ####[facility] Kqfbebwjjd[address] [place] [address]Dr. Donna Malone PIP [facility] Comment on above: Performed By: #### A BG ####[facility] Osqtrigbjr84[address] [place] [address]Dr. Donna Malone PS [facility] Comment on above: Performed By: #### A BG ####[facility] Rbifdmupsl1163 [place] [address]Dr. Donna Malone PUNCTURE SITE LR [facility] Comment on above: Performed By: #### A BG ####[facility] Gzxoijkqkp3[address] [place], [place] [address]Dr. Donna Malone RATE [facility] Comment on above: Performed By: #### A BG ####[facility] Orhwhaofyb9163[address] [place], [place] [address]Dr. Donna Malone VENT MODE [facility] Comment on above: Performed By: #### A BG ####[facility] Dstfnaejfk5[address] [place], [place] [address]Dr. Donna Malone VT [facility] Comment on above: Performed By: #### A BG ####[facility] Xccanqawgm7801[address] [place], [place] [address]Dr. Donna Malone BNPon 11-14-2022 Natriuretic peptide B (Bld) [Mass/Vol] 148.0 pg/mL Normal <=900.0 [facility] Comment on above: Performed By: #### B DOUGHNUT MACHINE OPERATOR HELPER, CMP, HSTROPN ####[facility] Rawxbxpoqi3[address] [place] [address]Dr. Donna Malone CBC AUTO DIFFon 11-14-2022 BASO # 0.0 103/ul Normal 0.0-0.1 [facility] Comment on above: Performed By: #### C BC ####[facility] Etkyuqzvcz9[address] [place], [place] [address]Dr. Donna Malone Basophils/100 WBC (Bld) 0.5 % Normal 0.2-2.0 [facility] Comment on above: Performed By: #### C BC ####[facility] Rkkpzjojwd23[address] [place] [address]Dr. Donna Malone EO # 0.1 103/ul Normal 0.0-0.7 [facility] Comment on above: Performed By: #### C BC ####[facility] Sqlkenrbuz1687 [place] [address]Dr. Rubyyvan Malone Eosinophils/100 WBC (Bld) 0.6 % Critically low 0.9-7.0 [facility] Comment on above: Performed By: #### C BC ####[facility] Usfudomzsv2591[address] [place], [place] [address]Dr. Rubyyvan Malone Erythrocyte distribution width (RBC) [Ratio] 14.8 % Normal 11.0-15.0 [facility] Comment on above: Performed By: #### C BC ####[facility] Cqcvnifsad7833[address] [place], [place] [address]Dr. Rubyyvan Malone Hematocrit (Bld) [Volume fraction] 41.9 % Critically low 42.0-54.0 [facility] Comment on above: Performed By: #### C BC ####[facility] Dsivfmcjhe9065[address] [place], [place] [address]Dr. Donna Malone Hemoglobin (Bld) [Mass/Vol] 13.6 g/dL Critically low 14.0-18.0 [facility] Comment on above: Performed By: #### C BC ####[facility] Dbmhxdkjal8[address] [place], [place] [address]Dr. Rubyyvan Malone IG # 0.01 10e3/ul Normal 0.00-0.03 [facility] Comment on above: Performed By: #### C BC ####[facility] Pxpuhdpxrk2237[address] [place], [place] [address]Dr. Donna Malone IG % 0.1 % Normal 0.0-0.5 [facility] Comment on above: Performed By: #### C BC ####[facility] Zdjaabcjwx[address] [place], [place] [address]DrElizabeth Malone LYMPH # 1.7 103/ul Normal 1.2-3.8 [facility] Comment on above: Performed By: #### C BC ####[facility] Rhukvpzzfl9[address] [place] [address]Dr. Donna Malone Lymphocytes/100 WBC (Bld) 21.2 % Normal 20.5-60.0 [facility] Comment on above: Performed By: #### C BC ####[facility] Thcexbhpuh4[address] [place] [address]Dr. Donna Malone MANUAL DIFF REQ NO Normal [facility] Comment on above: Performed By: #### C BC ####[facility] Scdwoqpkqg9638 [place] [address]Dr. Donna Malone MCH (RBC) [Entitic mass] 29.2 pg Normal 25.9-34.0 [facility] Comment on above: Performed By: #### C BC ####[facility] Ddfltmmnuc[address] [place], [place] [address]Dr. Donna Malone MCHC (RBC) [Mass/Vol] 32.5 g/dL Normal 29.9-35.2 [facility] Comment on above: Performed By: #### C BC ####[facility] Zyboofmvui524[address] [place], [place] [address]Dr. Donna Malone MCV (RBC) [Entitic vol] 90.1 fL Normal 80.0-94.0 [facility] Comment on above: Performed By: #### C BC ####[facility] Ofhjlilyqb0049[address] [place], [place] [address]Dr. Donna Malone MONO # 0.4 103/ul Normal 0.3-0.8 [facility] Comment on above: Performed By: #### C BC ####[facility] Ozjtagohyh[address] [place], [place] [address]Dr. Donna Malone Monocytes/100 WBC (Bld) 5.5 % Normal 1.7-12.0 [facility] Comment on above: Performed By: #### C BC ####[facility] Pmgyqpcbui[address] [place], [place] [address]DrElizabeth Malone NEUT # 5.7 103/ul Normal 1.4-6.5 [facility] Comment on above: Performed By: #### C BC ####[facility] Jqhxocihxx7163 [place] [address]Dr. Donna Malone Neutrophils/100 WBC (Bld) 72.1 % Normal 43.0-75.0 [facility] Comment on above: Performed By: #### C BC ####[facility] Tzgqkniegt1532 [place] [address]Dr. Donna Faisal Platelet mean volume (Bld) [Entitic vol] 11.5 fL Normal 9.5-13.5 [facility] Comment on above: Performed By: #### C BC ####[facility] Lyigyskosv5[address] [place] [address]Dr. Donna Faisal PLT 193 103/ul Normal 150-450 [facility] Comment on above: Performed By: #### C BC ####[facility] Nekjfsnmif03[address] [place] [address]Dr. Donna Malone RBC 4.65 106/ul Critically low 4.70-6.10 [facility] Comment on above: Performed By: #### C BC ####[facility] Zurxfkkcdj1811[address] [place], [place] [address]Dr. Donna Faisal WBC 7.9 103/ul Normal 4.0-11.0 [facility] Comment on above: Performed By: #### C BC ####[facility] Sitzoapgfj50[address] [place], [place] [address]Dr. Donna Faisal CT HEAD WO CONon 11-14-2022 CT HEAD WO CON Normal [facility] CULTURE BLOODon 11-14-2022 Microscopic examination of blood, culture Culture Observations: NO GROWTH AT 5 DAYS. Normal [facility] Comment on above: Performed By: #### B LDCX2 ####[facility] Eoofyqtady[address] [place], [place] [address]Dr. Donna Faisal Microscopic examination of blood, culture Culture Observations: NO GROWTH AT 5 DAYS. Normal [facility] Comment on above: Performed By: #### B LDCX1 ####[facility] Gijltrkvjr[address] [place], [place] [address]DrElizabeth Donna Malone Covid-19 PCR (CVDTB)on SARS-CoV-2 (COVID-19) RNA JOSÉ MIGUEL+probe Ql (Unsp spec) Not detected Normal NOT DETECTED [facility] Comment on above: Result Comment: When [...] for this test is supported by the [employer] of [employer] and Human Service's declaration that [...] be used). Performed By: #### C VDTBH ####[facility] Jhrcmwqbio75[address] [place] [id number]. Donna Malone DRUG SCREEN RAPID (URINE)on 11-14-2022 AMP Negative Normal NEGATIVE [facility] Comment on above: Performed By: #### D SHARONA, ERUR ####[facility] Vhkltxqvun[address] [place] [id number]. Donna Malone BAR Negative Normal NEGATIVE [facility] Comment on above: Performed By: #### D SHARONA, ERUR ####[facility] Atferoivay74[address] [place] [id number]. yvan Malone BUP Negative Normal NEGATIVE [facility] Comment on above: Performed By: #### D SHARONA ERUR ####[facility] Kdqcxowxvb23[address] [place] [id number]. Donna Malone BZO Negative Normal NEGATIVE [facility] Comment on above: Performed By: #### D SHARONA ERUR ####[facility] Djunmmrqcu6[address] [place], [place] [address]Dr. Donna Malone EVONNE Negative Normal NEGATIVE [facility] Comment on above: Performed By: #### Calvin TABOR ERUR ####[facility] Txojfzooge[address] [place], [place] [address]Dr. Donna Malone CUT-OFFS SEE BELOW Normal [facility] Comment on above: Result Comment: AMP [...] ng/mL Performed By: #### Calvin TABOR ERUR ####[facility] Apbfdsvkxq6415[address] [place], [place] [address]Dr. Donna Malone DRUG CUT HEADER DRUG CLASS TEST SYST EM CUT-OFF CONCENTRATIONS ARE FOLLOWS: Normal [facility] Comment on above: Performed By: #### WESLY LAUR ####[facility] Suownsidwk8[address] [place], [place] [address]Dr. Donna Malone mAMP Negative Normal NEGATIVE [facility] Comment on above: Performed By: #### Calvin TABOR ERUR ####[facility] Xqvqdtjbnp[address] [place], [place] [address]Dr. Donna Malone MTD Negative Normal NEGATIVE [facility] Comment on above: Performed By: #### Calvin TABOR ERUR ####[facility] Nvncgpyrar5552[address] [place], [place] [address]Dr. Donna Malone OPI Negative Normal NEGATIVE [facility] Comment on above: Performed By: #### WESLY LAUR ####[facility] Tmmbrvuqso9213[address] [place], [place] [address]Dr. Donna Malone OXY Negative Normal NEGATIVE [facility] Comment on above: Performed By: #### Calvin TABOR, ERUR ####[facility] Ozvpqfvcpp034[address] [place] [address]Dr. Donna Malone PCP Negative Normal NEGATIVE [facility] Comment on above: Performed By: #### Calvin TABOR, ERUR ####[facility] Pucklennrw[address] [place] [address]Dr. Donna Malone PPX Negative Normal NEGATIVE [facility] Comment on above: Performed By: #### Calvin TABOR, ERUR ####[facility] Lgvlhqwxee3[address] [place] [address]Dr. Donna Malone TCA Positive Abnormal NEGATIVE [facility] Comment on above: Performed By: #### Calvin TABOR, ERUR ####[facility] Sokcfwtxot5[address] [place] [address]Dr. Donna Malone THC Negative Normal NEGATIVE [facility] Comment on above: Performed By: #### Calvin TABOR, ERUR ####[facility] Blgmcdqwji8[address] [place], [place] [address]Dr. Donna Malone ER URINE PROFILEon 3 Bilirubin Ql (U) MODERATE Abnormal NEGATIVE [facility] Comment on above: Performed By: #### Calvin TABOR, ERUR ####[facility] Hsicviockt17[address] [place], [place] [address]Dr. Donna Malone Clarity (U) CLEAR Normal CLEAR [facility] Comment on above: Performed By: #### Calvin TABOR, ERUR ####[facility] Pdfhaxfpzg[address] [place] [address]Dr. Donna Malone Color (U) DK. YELLOW Normal YELLOW [facility] Comment on above: Performed By: #### Calvin TABOR, ERUR ####[facility] Dbulapidlp23[address] [place] [address]Dr. Donna Malone ERUAHD A micrscopic examina tion will be performed if indicated. Normal [facility] Comment on above: Performed By: #### Calvin TABOR, ERUR ####[facility] Zcdybaabaq25[address] [place] [address]Dr. Donna Faisal Glucose Ql (U) Negative Normal NEGATIVE [facility] Comment on above: Performed By: #### Calvin TABOR, ERUR ####[facility] Fproygrycx95[address] [place], [place] [address]Dr. Donna Faisal Hemoglobin Ql (U) Negative Normal NEGATIVE [facility] Comment on above: Performed By: #### Calvin TABOR, ERUR ####[facility] Lwqpodwyev[address] [place], [place] [address]Dr. Donna Malone Ketones Ql (U) 40 mg/dl Abnormal NEGATIVE [facility] Comment on above: Performed By: #### Calvin TABOR, ERUR ####[facility] Nylvkmsxyr[address] [place], [place] [address]Dr. Donna Malone LEUKOCYTES Negative Normal NEGATIVE [facility] Comment on above: Performed By: #### Calvin TABOR, ERUR ####[facility] Puehemphkh0[address] [place], [place] [address]Dr. Donna Faisal Nitrite Ql (U) Negative Normal NEGATIVE [facility] Comment on above: Performed By: #### Calvin TABOR ERUR ####[facility] [address] [place], [place] [address]Dr. Donna Malone pH (U) 6.0 [pH] Normal 5-9 [facility] Comment on above: Performed By: #### Calvin TABOR, ERUR ####[facility] Dzeubximwe[address] [place], [place] [address]Dr. Donna Malone SPEC GRAVITY 1.030 Abnormal 1.005-<=1. 025 [facility] Comment on above: Performed By: #### Calvin TABOR ERUR ####[facility] Kriysrbxvr[address] [place], [place] [address]Dr. Donna Malone UA PROTEIN TRACE Normal NEGATIVE/ TRACE [facility] Comment on above: Performed By: #### Calvin TABOR, ERUR ####[facility] Wcuuuspsof[address] [place], [place] [address]Dr. Donna Malone UR MICRO IND NOT INDICATED Normal [facility] Comment on above: Performed By: #### D SHARONA, ERUR ####[facility] Rsopgtyyrh[address] [place] [address]Dr. Donna Malone Urobilinogen Qn (U) 1.0 {Jermain'U}/dL Normal 0.2 - 1. 0 [facility] Comment on above: Performed By: #### D SHARONA, ERUR ####[facility] Bdbjzmvzyw[address] [place] [address]Dr. Donna Malone LACTATE/LACTIC ACIDon 2022 Lactate [Moles/Vol] 1.6 mmol/L Normal 0.4-1.9 [facility] Comment on above: Performed By: #### L ACT ####[facility] Hhcpvernaj[address] [place], [place] [address]Dr. Donna Malone PROF 14(COMP METB)on 023 Albumin [Mass/Vol] 3.4 g/dL Normal 3.4-5.0 [facility] Comment on above: Performed By: #### B DOUGHNUT MACHINE OPERATOR HELPER, CMP, HSTROPN ####[facility] Wopsawlusn[address] [place], [place] [address]Dr. Donna Malone Albumin/Globulin [Mass ratio] 1.0 {ratio} Normal [facility] Comment on above: Performed By: #### B DOUGHNUT MACHINE OPERATOR HELPER, CMP, HSTROPN ####[facility] Oljuojknon[address] [place] [address]Dr. Donna Malone ALP [Catalytic activity/Vol] 48 U/L Normal 46-116 [facility] Comment on above: Performed By: #### B DOUGHNUT MACHINE OPERATOR HELPER, CMP, HSTROPN ####[facility] Tbwrlcjopf3572 [place] [address]Dr. Donna Malone ALT [Catalytic activity/Vol] 13 U/L Critically low 16-63 [facility] Comment on above: Performed By: #### B DOUGHNUT MACHINE OPERATOR HELPER, CMP, HSTROPN ####[facility] Gialhmsays[address]354 [place] [address]Dr. Donna Malone Anion gap [Moles/Vol] 13.2 mmol/L Normal [facility] Comment on above: Performed By: #### B DOUGHNUT MACHINE OPERATOR HELPER, CMP, HSTROPN ####[facility] Vimptvwuqj[address] [place] [address]Dr. Donna Malone AST [Catalytic activity/Vol] 13 U/L Critically low 15-37 [facility] Comment on above: Performed By: #### B DOUGHNUT MACHINE OPERATOR HELPER, CMP, HSTROPN ####[facility] Orommmtacu[address] [place] [address]Dr. Donna Malone Bilirubin [Mass/Vol] 0.4 mg/dL Normal 0.2-1.0 [facility] Comment on above: Performed By: #### B DOUGHNUT MACHINE OPERATOR HELPER, CMP, HSTROPN ####[facility] Igfwhvewis3705 [place] [address]Dr. Donna Malone Calcium [Mass/Vol] 9.2 mg/dL Normal 8.5-10.1 [facility] Comment on above: Performed By: #### B DOUGHNUT MACHINE OPERATOR HELPER, CMP, HSTROPN ####[facility] Twojfqxoeo3876 [place] [address]Dr. Donna Malone Chloride [Moles/Vol] 108 mmol/L Critically high 98-107 [facility] Comment on above: Performed By: #### B DOUGHNUT MACHINE OPERATOR HELPER, CMP, HSTROPN ####[facility] Ufbulppaiw0965 [place] [address]Dr. Donna Malone CO2 [Moles/Vol] 27.0 mmol/L Normal 21.0-32.0 [facility] Comment on above: Performed By: #### B DOUGHNUT MACHINE OPERATOR HELPER, CMP, HSTROPN ####[facility] Ovwgtlggsc8465 [place] [address]Dr. Donna Malone Creatinine [Mass/Vol] 1.14 mg/dL Normal 0.70-1.30 [facility] Comment on above: Performed By: #### B DOUGHNUT MACHINE OPERATOR HELPER, CMP, HSTROPN ####[facility] Wgpnysplvx0520 [place] [address]Dr. Donna Malone EGFR-AF LEBANESE >60 Normal >=60 [facility] Comment on above: Performed By: #### B DOUGHNUT MACHINE OPERATOR HELPER, CMP, HSTROPN ####[facility] Yxqxvziama7771 [place] [address]Dr. Donna Malone EGFR-NON AF LEBANESE >60 Normal >=60 [facility] Comment on above: Performed By: #### B DOUGHNUT MACHINE OPERATOR HELPER, CMP, HSTROPN ####[facility] Gxzynuflfi9217 [place] [address]Dr. Donna Malone Globulin (S) [Mass/Vol] 3.5 g/dL Normal [facility] Comment on above: Performed By: #### B DOUGHNUT MACHINE OPERATOR HELPER, CMP, HSTROPN ####[facility] Gbbnplaozt0613 [place] [address]Dr. Donna Malone Glucose [Mass/Vol] 126 mg/dL Critically high 74-106 [facility] Comment on above: Performed By: #### B DOUGHNUT MACHINE OPERATOR HELPER, CMP, HSTROPN ####[facility] Ehpfnczwtk0326 [place] [address]Dr. Donna Malone Potassium [Moles/Vol] 4.2 mmol/L Normal 3.5-5.1 [facility] Comment on above: Performed By: #### B DOUGHNUT MACHINE OPERATOR HELPER, CMP, HSTROPN ####[facility] Ltndfhjbmj0034 [place] [address]Dr. Donna Malone Protein [Mass/Vol] 6.9 g/dL Normal 6.4-8.2 [facility] Comment on above: Performed By: #### B DOUGHNUT MACHINE OPERATOR HELPER, CMP, HSTROPN ####[facility] Vavcvflprf1713 [place] [address]Dr. Donna Malone Sodium [Moles/Vol] 144 mmol/L Normal 136-145 [facility] Comment on above: Performed By: #### B DOUGHNUT MACHINE OPERATOR HELPER, CMP, HSTROPN ####[facility] Jxfpivyosh[address] [place], [place] [address]Dr. Donna Malone Urea nitrogen [Mass/Vol] 17.0 mg/dL Normal 7.0-18.0 [facility] Comment on above: Performed By: #### B DOUGHNUT MACHINE OPERATOR HELPER, CMP, HSTROPN ####[facility] Fcjiacwtzh9128 [place] [address]Dr. Donna Malone Urea nitrogen/Creatinine [Mass ratio] 14.9 mg/mg Normal [facility] Comment on above: Performed By: #### B DOUGHNUT MACHINE OPERATOR HELPER, CMP, HSTROPN ####[facility] [address] [place], [place] [address]Qv. Donna Malone TROPONIN, HIGH SENSITIVITYon 11-14-2022 HSTROP 11.2 pg/mL Normal 4.0-76.1 [facility] Comment on above: Result Comment: CUT- OFF POINTS HAVE BEEN ESTABLISHED BASED ON THE FOURTH UNIVERSAL DEFINITIONS OF MYOCARDIALINFARCTION. THE UPPER REFERENCE LIMIT (URL) OF TROPONIN, DEFINED THE 99TH PERCENTILE OFcTnI DISTRIBUTION IN A REFERENCE POPULATION, HAS BEEN CONFIRMED THE DECISION THRESHOLDFOR ND DIAGNOSIS. Performed By: #### B DOUGHNUT MACHINE OPERATOR HELPER, CMP, HSTROPN ####[facility] Aeearayjcj[address] [place], [place] [address]Ax. Donna Malone XR CHEST 1 Von 11-14-2022 XR CHEST 1 V Normal [facility] XR lumbar spine AP/LAT/FLX/E XTon 11-01-2022 XR lumbar spine AP/LAT/FLX/EXT [facility] Main [place] [address] [place] [address] XRay Report Signed Patient: Taylor Mcclellan MR#: [id number] : 1955 Acct:[id number] Age/Sex: 67 / M ADM Date: 11/01/22 Loc: XD Room: Type: [facility] Attending Dr: Benson Lane MD [...] Mj Rodriguez M.D.11/01/2022 3:07 PM Dictation Location: [place] [address] Transcribed By: JUANITA 11/01/22 1507 Dictated By: Mj Rodriguez II, MD 11/01/22 1505 Signed By: 11/01/22 1507 Normal [facility] ER URINE PROFILEon 3 Bilirubin Ql (U) Negative Normal NEGATIVE [facility] Comment on above: Performed By: #### E RUR ####[facility] [address]vcfkppn[address] [place], [place] [address]Dr. Donna Malone Clarity (U) CLEAR Normal CLEAR [facility] Comment on above: Performed By: #### E RUR ####[facility] Cpisoiivxp[address] [place], [place] [address]Dr. Donna Malone Color (U) YELLOW Normal YELLOW [facility] Comment on above: Performed By: #### E RUR ####[facility] Ekjsxvtzxj[address] [place], [place] [address]Dr. Donna Malone ERUAHD A micrscopic examina tion will be performed if indicated. Normal [facility] Comment on above: Performed By: #### E RUR ####[facility] Fquufkgkpd[address] [place], [place] [address]Dr. Donna Malone Glucose Ql (U) 250 mg/dl Abnormal NEGATIVE [facility] Comment on above: Performed By: #### E RUR ####[facility] Rcfhdfscim[address] [place], [place] [address]Dr. Donna Malone Hemoglobin Ql (U) TRACE-INTACT Abnormal NEGATIVE [facility] Comment on above: Performed By: #### E RUR ####[facility] Ypooylxqtc0872 [place] [address]Dr. Rubyyvan Malone Ketones Ql (U) Negative Normal NEGATIVE [facility] Comment on above: Performed By: #### E RUR ####[facility] Rgiaazwyfn7845 [place] [address]Dr. Donna Malone LEUKOCYTES Negative Normal NEGATIVE [facility] Comment on above: Performed By: #### E RUR ####[facility] Byejsnkstt[address] [place], [place] [address]Dr. Rubyyvan Faisal Nitrite Ql (U) Negative Normal NEGATIVE [facility] Comment on above: Performed By: #### E RUR ####[facility] Kmcyvlgcgn[address] [place], [place] [address]Dr. Donna Malone pH (U) 5.5 [pH] Normal 5-9 [facility] Comment on above: Performed By: #### E RUR ####[facility] Bkhumnrpch[address] [place], [place] [address]Dr. Donna Malone SPEC GRAVITY 1.025 Normal 1.005-<=1. 025 [facility] Comment on above: Performed By: #### E RUR ####[facility] Esefxfbdlz[address] [place], [place] [address]Dr. Donna Malone UA PROTEIN Negative Normal NEGATIVE/ TRACE [facility] Comment on above: Performed By: #### E RUR ####[facility] Nbgyyezhlz[address] [place], [place] [address]Dr. Donna Malone UR MICRO IND NOT INDICATED Normal [facility] Comment on above: Performed By: #### E RUR ####[facility] Fyxsbhqfbj[address] [place], [place] [address]Dr. Donna Malone Urobilinogen Qn (U) 0.2 {Jermain'U}/dL Normal 0.2 - 1. 0 [facility] Comment on above: Performed By: #### E RUR ####[facility] Rpbgbeskvq[address] [place], [place] [address]Dr. Donna Malone CBC AUTO DIFFon 10-26-2022 BASO # 0.0 103/ul Normal 0.0-0.1 [facility] Comment on above: Performed By: #### C BC ####[facility] L[address]zjlodvux[address] [place], [place] [address]Dr. Donna Malone Basophils/100 WBC (Bld) 0.4 % Normal 0.2-2.0 [facility] Comment on above: Performed By: #### C BC ####[facility] Heqmdyluxc[address] [place], [place] [address]Dr. Donna Malone EO # 0.0 103/ul Normal 0.0-0.7 [facility] Comment on above: Performed By: #### C BC ####[facility] Fjdmxzjosu7[address] [place], [place] [address]Dr. Donna Malone Eosinophils/100 WBC (Bld) 0.0 % Critically low 0.9-7.0 [facility] Comment on above: Performed By: #### C BC ####[facility] Cfdlrsnmmz[address] [place], [place] [address]Dr. Donna Malone Erythrocyte distribution width (RBC) [Ratio] 14.5 % Normal 11.0-15.0 [facility] Comment on above: Performed By: #### C BC ####[facility] Pxyxeblqxr2[address] [place], [place] [address]Dr. Donna Malone Hematocrit (Bld) [Volume fraction] 41.2 % Critically low 42.0-54.0 [facility] Comment on above: Performed By: #### C BC ####[facility] Etldnvxmzl[address] [place], [place] [address]Dr. Donna Malone Hemoglobin (Bld) [Mass/Vol] 13.7 g/dL Critically low 14.0-18.0 [facility] Comment on above: Performed By: #### C BC ####[facility] Kyealqdewf[address] [place], [place] [address]Dr. Donna Malone IG # 0.02 10e3/ul Normal 0.00-0.03 [facility] Comment on above: Performed By: #### C BC ####[facility] Typpepmvch6434 [place] [address]Dr. Donna Malone IG % 0.2 % Normal 0.0-0.5 [facility] Comment on above: Performed By: #### C BC ####[facility] Bhoycuzomi4[address] [place], [place] [address]Dr. Donna Malone LYMPH # 1.2 103/ul Normal 1.2-3.8 [facility] Comment on above: Performed By: #### C BC ####[facility] Spkcmswlpl[address] [place], [place] [address]Dr. Donna Malone Lymphocytes/100 WBC (Bld) 14.4 % Critically low 20.5-60.0 [facility] Comment on above: Performed By: #### C BC ####[facility] Tuejlcjiqz[address] [place], [place] [address]DrElizabeth Malone MANUAL DIFF REQ NO Normal [facility] Comment on above: Performed By: #### C BC ####[facility] Ijamyoyzbc[address] [place], [place] [address]Dr. Donna Faisal MCH (RBC) [Entitic mass] 29.4 pg Normal 25.9-34.0 [facility] Comment on above: Performed By: #### C BC ####[facility] Bdezvcgebd30[address] [place], [place] [address]Dr. Donna Faisal MCHC (RBC) [Mass/Vol] 33.3 g/dL Normal 29.9-35.2 [facility] Comment on above: Performed By: #### C BC ####[facility] Ojrlsnriaa[address] [place], [place] [address]DrElizabeth Malone MCV (RBC) [Entitic vol] 88.4 fL Normal 80.0-94.0 [facility] Comment on above: Performed By: #### C BC ####[facility] Fiqkckwcrd[address] [place], [place] [address]DrElizabeth Malone MONO # 0.2 103/ul Critically low 0.3-0.8 [facility] Comment on above: Performed By: #### C BC ####[facility] Vuhqdqrzsd[address] [place], [place] [address]Dr. Donna Malone Monocytes/100 WBC (Bld) 2.5 % Normal 1.7-12.0 [facility] Comment on above: Performed By: #### C BC ####[facility] Pqlghbpbya7890 [place] [address]Dr. Donna Malone NEUT # 6.9 103/ul Critically high 1.4-6.5 [facility] Comment on above: Performed By: #### C BC ####[facility] Xvgpcizpne0464 [place] [address]Dr. Donna Malone Neutrophils/100 WBC (Bld) 82.5 % Critically high 43.0-75.0 [facility] Comment on above: Performed By: #### C BC ####[facility] Fabfzewwyn[address] [place], [place] [address]Dr. Donna Malone Platelet mean volume (Bld) [Entitic vol] 11.3 fL Normal 9.5-13.5 [facility] Comment on above: Performed By: #### C BC ####[facility] Ewdkbywrlu6[address] [place], [place] [address]Dr. Donna Malone PLT 241 103/ul Normal 150-450 [facility] Comment on above: Performed By: #### C BC ####[facility] Gttuofyqnm[address] [place], [place] [address]Dr. Donna Malone RBC 4.66 106/ul Critically low 4.70-6.10 [facility] Comment on above: Performed By: #### C BC ####[facility] Pgjbprwavb[address] [place], [place] [address]Dr. Donna Malone WBC 8.4 103/ul Normal 4.0-11.0 [facility] Comment on above: Performed By: #### C BC ####[facility] Rspuaqrwxu[address] [place], [place] [address]Dr. Donna Malone CRPon 10-26-2022 CRP [Mass/Vol] mg/L Normal <=1.0 [facility] Comment on above: Performed By: #### C RP, BMP ####[facility] Dpponthjst[address] [place], [place] [address]Dr. Donna Malone CT LSPINE WO CONon 3 CT LSPINE WO CON Normal [facility] PROF CHEM 8 (BAS METB)on Anion gap [Moles/Vol] 11.9 mmol/L Normal [facility] Comment on above: Performed By: #### C RP, BMP ####[facility] Bzssqyohpl6750 [place] [address]Dr. Rubyyvan Malone Calcium [Mass/Vol] 9.1 mg/dL Normal 8.5-10.1 [facility] Comment on above: Performed By: #### C RP, BMP ####[facility] Nwjzcgkxjt9078 [place] [address]Dr. Donna Malone Chloride [Moles/Vol] 104 mmol/L Normal 98-107 [facility] Comment on above: Performed By: #### C RP, BMP ####[facility] Bplsqijgnk7742 [place] [address]Dr. Rubyyvan Malone CO2 [Moles/Vol] 26.3 mmol/L Normal 21.0-32.0 [facility] Comment on above: Performed By: #### C RP, BMP ####[facility] Fsmpwroqsj3080 [place] [address]Dr. Rubyyvan Faisal Creatinine [Mass/Vol] 0.99 mg/dL Normal 0.70-1.30 [facility] Comment on above: Performed By: #### C RP, BMP ####[facility] Jbobcaonnq8234 [place] [address]Dr. Rubyyvan Faisal EGFR-AF LEBANESE >60 Normal >=60 [facility] Comment on above: Performed By: #### C RP, BMP ####[facility] Liwdelbcvk5650 [place] [address]Dr. Donna Malone EGFR-NON AF LEBANESE >60 Normal >=60 [facility] Comment on above: Performed By: #### C RP, BMP ####[facility] Utxvbivlkc3391 [place] [address]Dr. Donna Malone Glucose [Mass/Vol] 152 mg/dL Critically high 74-106 [facility] Comment on above: Performed By: #### C RP, BMP ####[facility] Jxfbnxqgwj4371 [place] [address]Dr. Donna Malone Potassium [Moles/Vol] 4.2 mmol/L Normal 3.5-5.1 [facility] Comment on above: Performed By: #### C RP, BMP ####[facility] Y[address]hldqwlg[address] [place], [place] [address]Dr. Donna Malone Sodium [Moles/Vol] 138 mmol/L Normal 136-145 [facility] Comment on above: Performed By: #### C RP, BMP ####[facility] Fxeycrauwm[address] [place], [place] [address]Dr. Donna Faisal Urea nitrogen [Mass/Vol] 12.0 mg/dL Normal 7.0-18.0 [facility] Comment on above: Performed By: #### C RP, BMP ####[facility] Nvztjsaqct[address] [place], [place] [address]Dr. Donna Faisal Urea nitrogen/Creatinine [Mass ratio] 12.1 mg/mg Normal [facility] Comment on above: Performed By: #### C RP, BMP ####[facility] Ncweenekrm[address] [place], [place] [address]Dr. Donna Faisal [facility] SED [facility]ATE 57 mm/hr Critically high <=20 [facility] Comment on above: Performed By: #### S EDR ####[facility] Rrwuywxhdl4[address] [place], [place] [address]Dr. Donna Faisal CBC AUTO DIFFon 10-25-2022 BASO # 0.0 103/ul Normal 0.0-0.1 [facility] Comment on above: Performed By: #### C BC ####[facility] Rlbtlskufq[address] [place], [place] [address]Dr. Donna Faisal Basophils/100 WBC (Bld) 0.4 % Normal 0.2-2.0 [facility] Comment on above: Performed By: #### C BC ####[facility] Vuspzlymwk4[address] [place], [place] [address]Dr. Yiyvan Malone EO # 0.0 103/ul Normal 0.0-0.7 [facility] Comment on above: Performed By: #### C BC ####[facility] Yefwbpfqsx46[address] [place], [place] [address]Dr. Donna Faisal Eosinophils/100 WBC (Bld) 0.0 % Critically low 0.9-7.0 [facility] Comment on above: Performed By: #### C BC ####[facility] Qwocclxctf[address] [place], [place] [address]Dr. Donna Malone Erythrocyte distribution width (RBC) [Ratio] 14.5 % Normal 11.0-15.0 [facility] Comment on above: Performed By: #### C BC ####[facility] Tbfuybknrp[address] [place], [place] [address]Dr. Rubyyvan Malone Hematocrit (Bld) [Volume fraction] 43.8 % Normal 42.0-54.0 [facility] Comment on above: Performed By: #### C BC ####[facility] Vrqchjuwrn[address] [place], [place] [address]Dr. Donna Malone Hemoglobin (Bld) [Mass/Vol] 14.2 g/dL Normal 14.0-18.0 [facility] Comment on above: Performed By: #### C BC ####[facility] Yxiloqcgfz[address] [place], [place] [address]Dr. Rubyvyan Faisal IG # 0.01 10e3/ul Normal 0.00-0.03 [facility] Comment on above: Performed By: #### C BC ####[facility] Wegwhiktzk[address] [place], [place] [address]Dr. Donna Malone IG % 0.1 % Normal 0.0-0.5 [facility] Comment on above: Performed By: #### C BC ####[facility] Ofddjejehk[address] [place], [place] [address]Dr. Donna Malone LYMPH # 1.4 103/ul Normal 1.2-3.8 [facility] Comment on above: Performed By: #### C BC ####[facility] Ghkbbvyeod[address] [place], [place] [address]DrElizabeth Malone Lymphocytes/100 WBC (Bld) 17.1 % Critically low 20.5-60.0 [facility] Comment on above: Performed By: #### C BC ####[facility] Ljhszovnuz7505 [place] [address]DrElizabeth Malone MANUAL DIFF REQ NO Normal [facility] Comment on above: Performed By: #### C BC ####[facility] Mpyifrwwvf1215 [place] [address]DrElizabeth Malone MCH (RBC) [Entitic mass] 29.1 pg Normal 25.9-34.0 [facility] Comment on above: Performed By: #### C BC ####[facility] [address]xgtjmltoy[address] [place], [place] [address]DrElizabeth Malone MCHC (RBC) [Mass/Vol] 32.4 g/dL Normal 29.9-35.2 The [facility] Comment on above: Performed By: #### C BC ####[facility] Y[address] [place], [place] [address]DrElizabeth Malone MCV (RBC) [Entitic vol] 89.8 fL Normal 80.0-94.0 [facility] Comment on above: Performed By: #### C BC ####[facility] [address] [place], [place] [address]DrElizabeth Malone MONO # 0.3 103/ul Normal 0.3-0.8 [facility] Comment on above: Performed By: #### C BC ####[facility] Ykauicxvva[address] [place], [place] [address]DrElizabeth Malone Monocytes/100 WBC (Bld) 4.1 % Normal 1.7-12.0 [facility] Comment on above: Performed By: #### C BC ####[facility] Gykyoqdvln[address] [place], [place] [address]DrElizabeth Malone NEUT # 6.3 103/ul Normal 1.4-6.5 [facility] Comment on above: Performed By: #### C BC ####[facility] Ilvteejxdq[address] [place], [place] [address]DrElizabeth Malone Neutrophils/100 WBC (Bld) 78.3 % Critically high 43.0-75.0 [facility] Comment on above: Performed By: #### C BC ####[facility] Udypmukxug[address] [place], [place] [address]Dr. Donna Malone Platelet mean volume (Bld) [Entitic vol] 11.3 fL Normal 9.5-13.5 [facility] Comment on above: Performed By: #### C BC ####[facility] Trckelqbga[address] [place], [place] [address]Dr. Donna Malone PLT 271 103/ul Normal 150-450 [facility] Comment on above: Performed By: #### C BC ####[facility] Fnlksyrros350[address] [place], [place] [address]Dr. Donna Malone RBC 4.88 106/ul Normal 4.70-6.10 [facility] Comment on above: Performed By: #### C BC ####[facility] Vdpenmdxxd9[address] [place], [place] [address]Dr. Donna Faisal WBC 8.0 103/ul Normal 4.0-11.0 [facility] Comment on above: Performed By: #### C BC ####[facility] Cmsxvsuwyt[address] [place], [place] [address]Dr. Donna Faisal ER URINE PROFILEon 3 Bilirubin Ql (U) Negative Normal NEGATIVE [facility] Comment on above: Performed By: #### E RUR ####[facility] Pwlsabcsmz[address] [place], [place] [address]Dr. Donna Malone Clarity (U) CLEAR Normal CLEAR [facility] Comment on above: Performed By: #### E RUR ####[facility] Izqvopltft[address] [place], [place] [address]Dr. Donna Malone Color (U) YELLOW Normal YELLOW [facility] Comment on above: Performed By: #### E RUR ####[facility] Mfjwazkqvv[address] [place], [place] [address]Dr. Donna Malone ERUAHD A micrscopic examina tion will be performed if indicated. Normal [facility] Comment on above: Performed By: #### E RUR ####[facility] [address] [place] [address]Dr. Donna Malone Glucose Ql (U) 100 mg/dl Abnormal NEGATIVE [facility] Comment on above: Performed By: #### E RUR ####[facility] Ikvfuofftp[address] [place] [address]Dr. Donna Malone Hemoglobin Ql (U) Negative Normal NEGATIVE [facility] Comment on above: Performed By: #### E RUR ####[facility] Xgvjcopgww62[address] [place], [place] [address]Dr. Donna Malone Ketones Ql (U) TRACE Abnormal NEGATIVE [facility] Comment on above: Performed By: #### E RUR ####[facility] Fuwmiyztyl[address] [place], [place] [address]Dr. Donna Malone LEUKOCYTES Negative Normal NEGATIVE [facility] Comment on above: Performed By: #### E RUR ####[facility] Yccqppcvom[address] [place], [place] [address]Dr. Donna Malone Nitrite Ql (U) Negative Normal NEGATIVE [facility] Comment on above: Performed By: #### E RUR ####[facility] Hkjfinrqmw3867[address] [place], [place] [address]Dr. Donna Malone pH (U) 6.0 [pH] Normal 5-9 [facility] Comment on above: Performed By: #### E RUR ####[facility] Tsqtvqihyi54[address] [place], [place] [address]Dr. Donna Malone SPEC GRAVITY >=1.030 Abnormal 1.005-<=1. 025 [facility] Comment on above: Performed By: #### E RUR ####[facility] Bcwmvsrmui[address] [place], [place] [address]Dr. Donna Malone UA PROTEIN Negative Normal NEGATIVE/ TRACE [facility] Comment on above: Performed By: #### E RUR ####[facility] Rcdfvxggrn[address] [place], [place] [address]Dr. Donna Malone UR MICRO IND NOT INDICATED Normal [facility] Comment on above: Performed By: #### E RUR ####[facility] [address]wbrslv[address] [place] [address]Dr. Donna Malone Urobilinogen Qn (U) 0.2 {Jermain'U}/dL Normal 0.2 - 1. 0 [facility] Comment on above: Performed By: #### E RUR ####[facility] [address] [place] [address]Dr. Donna Malone PROF CHEM 8 (BAS METB)on Anion gap [Moles/Vol] 16.4 mmol/L Normal [facility] Comment on above: Performed By: #### B MP ####[facility] Gqppsaexgw14[address] [place], [place] [address]Dr. Donna Malone Calcium [Mass/Vol] 9.4 mg/dL Normal 8.5-10.1 [facility] Comment on above: Performed By: #### B MP ####[facility] Thbtglupew[address] [place], [place] [address]Dr. Donna Malone Chloride [Moles/Vol] 103 mmol/L Normal 98-107 [facility] Comment on above: Performed By: #### B MP ####[facility] Jpqzcywmzv[address] [place], [place] [address]Dr. Donna Malone CO2 [Moles/Vol] 23.7 mmol/L Normal 21.0-32.0 [facility] Comment on above: Performed By: #### B MP ####[facility] Piscjglkrp[address] [place], [place] [address]Dr. Donna Malone Creatinine [Mass/Vol] 1.12 mg/dL Normal 0.70-1.30 [facility] Comment on above: Performed By: #### B MP ####[facility] Ctvrfasbic9033[address] [place], [place] [address]Dr. Donna Malone EGFR-AF LEBANESE >60 Normal >=60 [facility] Comment on above: Performed By: #### B MP ####[facility] Alnhmjzyvl[address] [place], [place] [address]Dr. Donna Malone EGFR-NON AF LEBANESE >60 Normal >=60 [facility] Comment on above: Performed By: #### B MP ####[facility] J[address]zulst[address] [place] [address]Dr. Donna Malone Glucose [Mass/Vol] 170 mg/dL Critically high 74-106 [facility] Comment on above: Performed By: #### B MP ####[facility] [address]ss[address]dgwvf[address] [place] [id number]. Donna Malone Potassium [Moles/Vol] 4.1 mmol/L Normal 3.5-5.1 [facility] Comment on above: Performed By: #### B MP ####[facility] Osfwlwlpfk[address] [place], [place] [address]Dr. Donna Malone Sodium [Moles/Vol] 139 mmol/L Normal 136-145 [facility] Comment on above: Performed By: #### B MP ####[facility] Zhohzqmopy[address] [place], [place] [address]Dr. Donna Malone Urea nitrogen [Mass/Vol] 9.0 mg/dL Normal 7.0-18.0 [facility] Comment on above: Performed By: #### B MP ####[facility] Huxwdfzzaa7[address] [place], [place] [address]Dr. Donna Malone Urea nitrogen/Creatinine [Mass ratio] 8.0 mg/mg Normal [facility] Comment on above: Performed By: #### B MP ####[facility] Nuthmlcjar13[address] [place], [place] [address]Dr. Donna Malone ACETONE SERUMon 08-10-2022 ACETONE Negative Normal NEGATIVE [facility] Comment on above: Performed By: #### A CETON ####[facility] Kbgjscodew13[address] [place], [place] [address]Dr. Donna Malone CBC AUTO DIFFon 08-10-2022 BASO # 0.1 103/ul Normal 0.0-0.1 [facility] Comment on above: Performed By: #### C BC ####[facility] Jbhhpviebr6[address] [place], [place] [address]Dr. Donna Faisal Basophils/100 WBC (Bld) 0.7 % Normal 0.2-2.0 [facility] Comment on above: Performed By: #### C BC ####[facility] [address] [place] [address]Dr. Donna Malone EO # 0.2 103/ul Normal 0.0-0.7 [facility] Comment on above: Performed By: #### C BC ####[facility] [address]zzqtpzjp[address] [place] [address]Dr. Donna Malone Eosinophils/100 WBC (Bld) 2.0 % Normal 0.9-7.0 [facility] Comment on above: Performed By: #### C BC ####[facility] Cfzcbfjvfr8025[address] [place], [place] [address]Dr. Donna Malone Erythrocyte distribution width (RBC) [Ratio] 14.3 % Normal 11.0-15.0 [facility] Comment on above: Performed By: #### C BC ####[facility] Ansammndiw70[address] [place], [place] [address]Dr. Donna Malone Hematocrit (Bld) [Volume fraction] 37.3 % Critically low 42.0-54.0 [facility] Comment on above: Performed By: #### C BC ####[facility] Qddocejhsw[address] [place], [place] [address]Dr. Donna Malone Hemoglobin (Bld) [Mass/Vol] 12.1 g/dL Critically low 14.0-18.0 [facility] Comment on above: Performed By: #### C BC ####[facility] Gadamiplga7[address] [place], [place] [address]Dr. Donna Malone IG # 0.03 10e3/ul Normal 0.00-0.03 [facility] Comment on above: Performed By: #### C BC ####[facility] Hbmykbcdju214[address] [place], [place] [address]Dr. Donna Malone IG % 0.4 % Normal 0.0-0.5 [facility] Comment on above: Performed By: #### C BC ####[facility] Mtcqmwogwr[address]66[address] [place], [place] [address]Dr. Donna Malone LYMPH # 1.3 103/ul Normal 1.2-3.8 [facility] Comment on above: Performed By: #### C BC ####[facility] [address]fb[address]wnsxng[address] [place] [id number]. Donna Malone Lymphocytes/100 WBC (Bld) 18.3 % Critically low 20.5-60.0 [facility] Comment on above: Performed By: #### C BC ####[facility] G[address]prwiqib[address] [place] [id number]. Rubyyvan Malone MANUAL DIFF REQ NO Normal [facility] Comment on above: Performed By: #### C BC ####[facility] [address]jbvl[address] [place], [place] [address]Dr. Donna Faisal MCH (RBC) [Entitic mass] 30.1 pg Normal 25.9-34.0 [facility] Comment on above: Performed By: #### C BC ####[facility] Yyddfqtkhc[address] [place], [place] [address]Dr. Donna Faisal MCHC (RBC) [Mass/Vol] 32.4 g/dL Normal 29.9-35.2 [facility] Comment on above: Performed By: #### C BC ####[facility] Wronzrdnpu[address] [place], [place] [address]Dr. Donna Faisal MCV (RBC) [Entitic vol] 92.8 fL Normal 80.0-94.0 [facility] Comment on above: Performed By: #### C BC ####[facility] Uxgcebriyj[address] [place], [place] [address]Dr. Donna Faisal MONO # 0.6 103/ul Normal 0.3-0.8 [facility] Comment on above: Performed By: #### C BC ####[facility] Wlnonjklze[address] [place], [place] [address]Dr. Rubyyvan Malone Monocytes/100 WBC (Bld) 7.6 % Normal 1.7-12.0 [facility] Comment on above: Performed By: #### C BC ####[facility] Nuimfaazqp0723[address] [place], [place] [address]Dr. Donna Malone NEUT # 5.2 103/ul Normal 1.4-6.5 [facility] Comment on above: Performed By: #### C BC ####[facility] [address]26[address] [place], [place] [address]Ai. Donna Malone Neutrophils/100 WBC (Bld) 71.0 % Normal 43.0-75.0 [facility] Comment on above: Performed By: #### C BC ####[facility] [address] [place], [place] [address]Wf. Donna Malone Platelet mean volume (Bld) [Entitic vol] 11.6 fL Normal 9.5-13.5 [facility] Comment on above: Performed By: #### C BC ####[facility] S[address]x7[address] [place], [place] [address]Hn. Donna Malone PLT 237 103/ul Normal 150-450 [facility] Comment on above: Performed By: #### C BC ####[facility] Psiropxlhv35[address] [place] [id number]. Donna Malone RBC 4.02 106/ul Critically low 4.70-6.10 [facility] Comment on above: Performed By: #### C BC ####[facility] S[address]zvyl[address] [place], [place] [address]Bg. Donna Malone WBC 7.3 103/ul Normal 4.0-11.0 [facility] Comment on above: Performed By: #### C BC ####[facility] Ayidrfleoh37[address] [place] [id number]. Donna Malone Covid-19 PCR (CVDTB)on SARS-CoV-2 (COVID-19) RNA JOSÉ MIGUEL+probe Ql (Unsp spec) Not detected Normal NOT DETECTED [facility] Comment on above: Result Comment: When [...] for this test is supported by the [place] of Health and Human Service's declaration that [...] be used). Performed By: #### C VDTBH ####[facility] Rzobzflsaf[address] [place], [place] [address]Dr. Donna Malone LACTATE/LACTIC ACIDon 2021 Lactate [Moles/Vol] 1.3 mmol/L Normal 0.4-1.9 [facility] Comment on above: Performed By: #### L ACT ####[facility] Bztexvnfbf5586[address] [place], [place] [address]Dr. Donna Malone PROF 14(COMP METB)on 022 Albumin [Mass/Vol] 2.9 g/dL Critically low 3.4-5.0 [facility] Comment on above: Performed By: #### C MARTI, HSTROPN ####[facility] Hzmwuocxch7[address] [place], [place] [address]Dr. Donna Malone Albumin/Globulin [Mass ratio] 0.7 {ratio} Normal [facility] Comment on above: Performed By: #### C MARTI, HSTROPN ####[facility] Ibnhrdlgyi[address] [place], [place] [address]Dr. Donna Malone ALP [Catalytic activity/Vol] 45 U/L Critically low 46-116 [facility] Comment on above: Performed By: #### C MARTI, HSTROPN ####[facility] Fteuwbnrxk07[address] [place], [place] [address]Dr. Donna Malone ALT [Catalytic activity/Vol] 12 U/L Critically low 16-63 [facility] Comment on above: Performed By: #### C MARTI, HSTROPN ####[facility] Yblvvycsal24[address] [place], [place] [address]Dr. Donna Malone Anion gap [Moles/Vol] 10.9 mmol/L Normal [facility] Comment on above: Performed By: #### C MARTI, HSTROPN ####[facility] X[address]ow[address]da[address] [place] [address]Dr. Donna Malone AST [Catalytic activity/Vol] 10 U/L Critically low 15-37 [facility] Comment on above: Performed By: #### C MARTI, HSTROPN ####[facility] Nzzbkrqoxp84[address] [place] [address]Dr. Donna Malone Bilirubin [Mass/Vol] 0.3 mg/dL Normal 0.2-1.0 [facility] Comment on above: Performed By: #### C MARTI, HSTROPN ####[facility] Rmzyrolbvt9[address] [place], [place] [address]Dr. Donna Malone Calcium [Mass/Vol] 8.9 mg/dL Normal 8.5-10.1 [facility] Comment on above: Performed By: #### C MARTI, HSTROPN ####[facility] Cnkknnhnfy3[address] [place], [place] [address]Dr. Donna Malone Chloride [Moles/Vol] 106 mmol/L Normal 98-107 [facility] Comment on above: Performed By: #### C MARTI, HSTROPN ####[facility] O[address]bey[address] [place], [place] [address]Dr. Donna Malone CO2 [Moles/Vol] 29.4 mmol/L Normal 21.0-32.0 [facility] Comment on above: Performed By: #### C MARTI, HSTROPN ####[facility] Rctdcebfdb[address] [place], [place] [address]Dr. Donna Malone Creatinine [Mass/Vol] 1.15 mg/dL Normal 0.70-1.30 [facility] Comment on above: Performed By: #### C MARTI, HSTROPN ####[facility] [address]qwvbhbco[address] [place], [place] [address]Dr. oDnna Malone EGFR-AF LEBANESE >60 Normal >=60 [facility] Comment on above: Performed By: #### C MARTI, HSTROPN ####[facility] Fmfgrqmknd[address] [place], [place] [address]Dr. Donna Malone EGFR-NON AF LEBANESE >60 Normal >=60 [facility] Comment on above: Performed By: #### C MARTI, HSTROPN ####[facility] Luvrriqypv[address] [place] [address]Dr. Donna Malone Globulin (S) [Mass/Vol] 4.2 g/dL Normal [facility] Comment on above: Performed By: #### C MRATI, HSTROPN ####[facility] Jttzghyazz2[address] [place] [address]Dr. Donna Malone Glucose [Mass/Vol] 116 mg/dL Critically high 74-106 [facility] Comment on above: Performed By: #### C MARTI, HSTROPN ####[facility] [address] [place] [address]Dr. Donna Malone Potassium [Moles/Vol] 4.3 mmol/L Normal 3.5-5.1 [facility] Comment on above: Performed By: #### C MARTI, HSTROPN ####[facility] Z[address]wsbtugj64[address] [place] [address]Dr. Donna Malone Protein [Mass/Vol] 7.1 g/dL Normal 6.4-8.2 [facility] Comment on above: Performed By: #### C MARTI, HSTROPN ####[facility] [address] [place] [address]Dr. Donna Mlaone Sodium [Moles/Vol] 142 mmol/L Normal 136-145 [facility] Comment on above: Performed By: #### C MARTI, HSTROPN ####[facility] Nov[address]yskdn[address] [place] [address]Dr. Donna Malone Urea nitrogen [Mass/Vol] 9.0 mg/dL Normal 7.0-18.0 [facility] Comment on above: Performed By: #### C MARTI, HSTROPN ####[facility] Htrxkjeywu[address] [place] [address]Dr. Donna Malone Urea nitrogen/Creatinine [Mass ratio] 7.8 mg/mg Normal [facility] Comment on above: Performed By: #### C MARTI, HSTROPN ####[facility] [address]udmna[address] [place], [place] [address]Wk. Donna Malone TROPONIN, HIGH SENSITIVITYon 08-10-2022 HSTROP 9.1 pg/mL Normal 4.0-76.1 [facility] Comment on above: Result Comment: CUT- OFF POINTS HAVE BEEN ESTABLISHED BASED ON THE FOURTH UNIVERSAL DEFINITIONS OF MYOCARDIALINFARCTION. THE UPPER REFERENCE LIMIT (URL) OF TROPONIN, DEFINED THE 99TH PERCENTILE OFcTnI DISTRIBUTION IN A REFERENCE POPULATION, HAS BEEN CONFIRMED THE DECISION THRESHOLDFOR ND DIAGNOSIS. Performed By: #### C MP, HSTROPN ####[facility] [address] [place], [place] [address]Sd. Donna Malone XR KNEE RT 4V or >on 022 XR KNEE RT 4V or > Normal [facility] CT HEAD WO [facility] 08-05-2022 CT HEAD WO CON Normal [facility] CT CSPINE WO [facility] 2 CT CSPINE WO CON Normal [facility] B[facility] CON Normal Th e [facility] CT LSPINE WO [facility] 2 CT LSPINE WO CON Normal [facility] Glucose Glucometer (BldC) [M ass/Vol]Ordered By: Sang Bauer on 07-20-2022 Glucose [Mass/Vol] 139 mg/dL [facility] Comment on above: Random Glucose Refer ence Range is dependent on time and content of last meal. Glucose of more than 200 mg/dL in a nonstressed, ambulatory subject supports the diagnosis of Diabetes Mellitus. No Panel InformationOrdered By: Sang Bauer on 07-20-2022 Bedside Glucose Comment Glu2: cleaned meter [facility] Cholesterol [Mass/volume] in Serum or PlasmaOrdered By: Sang Bauer on 07-18-2022 Cholesterol [Mass/Vol] 136 mg/dL 140-200 [facility] Comment on above: Chol less than 200 m g/dl low riskChol 201-239 mg/dl borderline riskChol 240 mg/dl and greater high risk Cholesterol in LDL Calc [Mas s/Vol]Ordered By: Sang Bauer on 07-18-2022 Cholesterol in LDL [Mass/Vol] 81 mg/dL 0-100 [facility] Comment on above: LDL ATP III CLASSIFI CATIONLDL less than 100 mg/dL OptimalLDL 100-129 mg/dL Near or above optimalLDL 130-159 mg/dL Borderline highLDL 160-189 mg/dL HighLDL greater than 189 mg/dL Very high Cholesterol in VLDL Calc [Ma ss/Vol]Ordered By: Sang Bauer on 07-18-2022 Cholesterol in VLDL [Mass/Vol] 17 mg/dL [facility] Serum or plasma high density lipoprotein (HDL) cholesterol measurementOrdered By: SangHidalgo on 07-18-2022 Cholesterol in HDL [Mass/Vol] 38 mg/dL 29-71 [facility] Comment on above: HDL CHOL ATP-III CLA SSIFICATION Cardiovascular RiskHDL > or equal to 60 mg/dL LOWHDL < 40 mg/dL HIGH Serum or plasma total choles terol/high density lipoprotein (HDL) cholesterol mass ratOrdered By: Sang Bauer on 07-18-2022 Cholesterol.total/Chol esterol in HDL [Mass ratio] 3.6 {ratio} <5.0 [facility] Triglyceride [Mass/volume] i n Serum or PlasmaOrdered By: Sang Bauer on 07-18-2022 Triglyceride [Mass/Vol] 85 mg/dL 35-149 [facility] Comment on above: TRIG [...] aPTT Coag (PPP) [Time] 35.8 s 25.1-36.5 [facility] Albumin [Mass/volume] in Ser um or PlasmaOrdered By: Gayathri Leal on 07-17-2022 Albumin [Mass/Vol] 3.1 g/dL 3.2-5.5 [facility] Amphetamine Screen Ql (U)Ord ered By: aGyathri Leal on 07-17-2022 Amphetamines Ql (U) Negative Negative [facility] Automated erythrocytes count in urine sediment (number/area)Ordered By: Gayathri Leal on 07-17-2022 RBC Auto (Urine sed) [#/Area] 3-4 [HPF] 0-4 [facility] Automated leukocytes count i n urine sediment (number/area)Ordered By: Gayathri Leal on 07-17-2022 WBC Auto (Urine sed) [#/Area] 1-2 [HPF] 0-4 [facility] Barbiturates [Presence] in U rineOrdered By: Gayathri Leal on 07-17-2022 Barbiturates Ql (U) Negative Negative [facility] Basophils Auto (Bld) [#/Vol] Ordered By: Gayathri Leal on 07-17-2022 Basophils (Bld) [#/Vol] 0.1 10*3/uL 0.0-0.2 [facility] Basophils/100 WBC Auto (Bld) Ordered By: Gayathri Leal on 07-17-2022 Basophils/100 WBC (Bld) 1.0 % . [facility] Benzodiazepines [Presence] i n UrineOrdered By: Gayathri Leal on 07-17-2022 Benzodiazepines Ql (U) Positive Negative [facility] Bilirubin Test strip Ql (U)O rdered By: Gayathri Leal on 07-17-2022 Bilirubin Ql (U) Negative Negative [facility] COVID CepheidOrdered By: Olya Leal on 07-17-2022 SARS-CoV-2 (COVID-19) Ab IA Ql Negative Negative [facility] Comment on above: This is a duplicate Cepheid Xpert Xpress CoV-2/Flu/RSV Plus RNA by RT-PCR result to be used for statistical tracking purpose only. SARS-CoV-2 (COVID-19) RNA JOSÉ MIGUEL+probe Ql (Unsp spec) [facility] Cannabinoids [Presence] in U rine by Screen methodOrdered By: Gayathri Leal on 07-17-2022 Cannabinoids Screen Ql (U) Negative Negative [facility] Comment on above: These are unconfirme d results and should not be used for legal purposes. Drug Cut-Off Concentration: AMPH 1000 ng/mL EWA 200 ng/mL JOHN 200 ng/mL COCM 300 ng/mL OP 300 ng/mL PCP 25 ng/mL THC 20 ng/mL Color Auto (U)Ordered By: Dung Leal on 07-17-2022 Color (U) Yellow Yellow [facility] Creatine kinase [Enzymatic a ctivity/volume] in Serum or PlasmaOrdered By: Gayathri Leal on 07-17-2022 CK [Catalytic activity/Vol] 137 U/L 22-269 [facility] Creatinine and Glomerular fi ltration rate.predicted panel (S/P/Bld)Ordered By: Gayathri Leal on 07-17-2022 Creatinine [Mass/Vol] 1.06 mg/dL 0.64-1.27 [facility] Direct bilirubin measurement Ordered By: Gayathri Leal on 07-17-2022 Bilirubin.direct [Mass/Vol] mg/dL 0.0-0.4 [facility] Eosinophils Auto (Bld) [#/Vo l]Ordered By: Gayathri Leal on 07-17-2022 Eosinophils (Bld) [#/Vol] 0.1 10*3/uL 0.0-0.45 [facility] Eosinophils/100 WBC Auto (Bl d)Ordered By: Gayathri Leal on 07-17-2022 Eosinophils/100 WBC (Bld) 0.7 % . [facility] Erythrocyte distribution wid th Auto (RBC) [Ratio]Ordered By: Gayathri Leal on 07-17-2022 Erythrocyte distribution width (RBC) [Ratio] 15.8 % 12.0-14.8 [facility] Estimated glomerular filtrat ion rate (GFR) non- AmericanOrdered By: Gayathri Leal on 07-17-2022 GFR/1.73 sq M.predicted among non-blacks MDRD (S/P/Bld) [Vol rate/Area] > 60 mL/Min [facility] Globulin Calc (S) [Mass/Vol] Ordered By: Gayathri Leal on 07-17-2022 Globulin (S) [Mass/Vol] 3.0 g/dL [facility] Glucose mean value [Mass/vol ume] in Blood Estimated from glycated hemoglobinOrdered By: Sang Bauer on 07-17-2022 Average glucose Estimated from glycated hemoglobin (Bld) [Mass/Vol] 114 mg/dL [facility] Hematocrit Auto (Bld) [Volum e fraction]Ordered By: Gayathri Leal on 07-17-2022 Hematocrit (Bld) [Volume fraction] 37.3 % 38.8-50.0 [facility] Hemoglobin A1c percentageOrd ered By: Sang Bauer on 07-17-2022 HbA1c (Bld) [Mass fraction] 5.6 % 4.3-5.6 [facility] Comment on above: Increased risk for d iabetes: 5.7 - 6.4diabetes: >6.4glycemic control for adults with diabetes: <7.0 Hemoglobin [Mass/volume] in BloodOrdered By: Gayathri Leal on 07-17-2022 Hemoglobin (Bld) [Mass/Vol] 12.3 g/dL 13.0-17.0 [facility] Ketones Auto test strip (U) [Mass/Vol]Ordered By: Gayathri Leal on 07-17-2022 Ketones (U) [Mass/Vol] 2+ Negative [facility] - Chemistry and C hemistry - challengeOrdered By: Gayathri Leal on 07-17-2022 Natriuretic peptide B (Bld) [Mass/Vol] 116.0 pg/mL 5-100 [facility] Laboratory - CoagulationOrde red By: Gayathri Leal on 07-17-2022 PT Coag (PPP) [Time] 12.5 s 9.0-12.9 [facility] [place] Laboratory - Drug toxicology Ordered By: Gayathri Leal on 07-17-2022 Opiates Ql (U) Negative Negative [facility] Laboratory - Hematology and Cell countsOrdered By: Gayathri Leal on 07-17-2022 Nucleated RBC/100 WBC (Bld) [Ratio] 0.1 % 0-0.5 [facility] Laboratory - UrinalysisOrder ed By: Gayathri Leal on 07-17-2022 Hyaline casts LM Ql (Urine sed) None seen [LPF] 0-8 [facility] Leukocytes [#/volume] in Blo od by Automated countOrdered By: Gayathri Leal on 07-17-2022 WBC (Bld) [#/Vol] 7.8 10*3/uL 4.5-11.0 [facility] Lymphocytes Auto (Bld) [#/Vo l]Ordered By: Gayathri Leal on 07-17-2022 Lymphocytes (Bld) [#/Vol] 2.3 10*3/uL 1.00-4.8 [facility] Lymphocytes/100 WBC Auto (Bl d)Ordered By: Gayathri Leal on 07-17-2022 Lymphocytes/100 WBC (Bld) 29.5 % . [facility] MCH Auto (RBC) [Entitic mass ]Ordered By: Gayathri Leal on 07-17-2022 MCH (RBC) [Entitic mass] 30.2 pg 27.5-35.2 [facility] MCHC Auto (RBC) [Mass/Vol]Or dered By: Gayathri Leal on 07-17-2022 MCHC (RBC) [Mass/Vol] 33.1 g/dL 32.5-35.6 [facility] MCV Auto (RBC) [Entitic vol] Ordered By: Gayathri Leal on 07-17-2022 MCV (RBC) [Entitic vol] 91.5 fL 83.5-101 [facility] Monocyte %Ordered By: Zeinab Leal on 07-17-2022 Monocyte % 20 umol/L [facility] Monocytes Auto (Bld) [#/Vol] Ordered By: Gayathri Leal on 07-17-2022 Monocytes (Bld) [#/Vol] 0.4 10*3/uL 0.0-0.8 [facility] Monocytes/100 WBC Auto (Bld) Ordered By: Gayathri Leal on 07-17-2022 Monocytes/100 WBC (Bld) 5.4 % . [facility] Neutrophils Auto (Bld) [#/Vo l]Ordered By: Gayathri Leal on 07-17-2022 Neutrophils (Bld) [#/Vol] 4.9 10*3/uL 1.8-7.7 [facility] Neutrophils/100 WBC Auto (Bl d)Ordered By: Gayathri Leal on 07-17-2022 Neutrophils/100 WBC (Bld) 63.4 % . [facility] Nitrite Test strip Ql (U)Ord ered By: Gayathri Leal on 07-17-2022 Nitrite Ql (U) Negative Negative [facility] No Panel InformationOrdered By: Gayathri Leal on 07-17-2022 Estimated GFR () > 60 mL/Min [facility] Comment on above: GFR estimated refere nce range: According to KDOQI guidelines, <60 ml/min/1.73m2 is sufficient to diagnose a patient with chronic kidney disease. Pharmacy Creatinine Clearance (Chem N/A [facility] Phencyclidine Screen Ql (U)O rdered By: Gayathri Leal on 07-17-2022 Phencyclidine Ql (U) Negative Negative [facility] [place] Platelet mean volume Auto (B ld) [Entitic vol]Ordered By: Gayathri Leal on 07-17-2022 Platelet mean volume (Bld) [Entitic vol] 10.2 fL 6.6-10.1 [facility] Platelet poor plasma interna tional normalized ratio (INR) by coagulation assay (relatOrdered By: Gayathri Leal on 07-17-2022 INR Coag (PPP) [Relative time] 1.1 {INR} [facility] Comment on above: INR [...] 07-17-2022 Platelets (Bld) [#/Vol] 239 10*3/uL 150-450 [facility] Protein Auto test strip (U) [Mass/Vol]Ordered By: Gayathri Leal on 07-17-2022 Protein (U) [Mass/Vol] Negative Negative [facility] Protein [Mass/volume] in Ser um or PlasmaOrdered By: Gayathri Leal on 07-17-2022 Protein [Mass/Vol] 6.1 g/dL 6.1-7.9 [facility] RBC Auto (Bld) [#/Vol]Ordere d By: Gayathri Leal on 07-17-2022 RBC (Bld) [#/Vol] 4.07 10*6/uL 3.90-5.60 [facility] Serum or plasma alanine del valle otransferase measurement without P-5'-P (enzymatic activiOrdered By: Gayathri Leal on 07-17-2022 ALT No additional P-5'-P [Catalytic activity/Vol] 13 U/L 10-60 [facility] Serum or plasma albumin/glob ulin mass ratioOrdered By: Gayathri Leal on 07-17-2022 Albumin/Globulin [Mass ratio] 1.0 {ratio} [facility] Serum or plasma alkaline gail sphatase measurement (enzymatic activity/volume)Ordered By: Gayathri Leal on 07-17-2022 ALP [Catalytic activity/Vol] 37 U/L 32-92 [facility] Serum or plasma anion gap de terminationOrdered By: Gayathri Leal on 07-17-2022 Anion gap [Moles/Vol] 12.1 mmol/L 6.0-15.0 [facility] Serum or plasma aspartate am inotransferase measurement (enzymatic activity/volume)Ordered By: Gayathri Leal on 07-17-2022 AST [Catalytic activity/Vol] 15 U/L 10-42 [facility] Serum or plasma calcium deepti urement (mass/volume)Ordered By: Gayathri Leal on 07-17-2022 Calcium [Mass/Vol] 8.8 mg/dL 8.2-10.2 [facility] Serum or plasma chloride deepak surement (moles/volume)Ordered By: Gayathri Leal on 07-17-2022 Chloride [Moles/Vol] 108 mmol/L 95-114 [facility] [place] Serum or plasma creatine kin ase MB (CKMB)/total creatine kinase (CK) ratio by calculaOrdered By: Gayathri Leal on 07-17-2022 CK.MB Calc [Catalytic fraction] 2.6 % 0.00-2.50 [facility] Serum or plasma creatine kin ase MB measurement (mass/volume)Ordered By: Gayathri Leal on 07-17-2022 CK.MB [Mass/Vol] 3.6 ng/mL 0.6-6.3 [facility] Serum or plasma glucose deepti urement (mass/volume)Ordered By: Gayathri Leal on 07-17-2022 Glucose [Mass/Vol] 91 mg/dL 70-100 [facility] Comment on above: ADA recommended refe rence rangeRandom Glucose Reference Range is dependent on time and content of last meal. Glucose of more than 200 mg/dL in a nonstressed, ambulatory subject supports the diagnosis of Diabetes Mellitus. Serum or plasma non-glucuron idated bilirubin measurement (mass/volume)Ordered By: Gayathri Leal on 07-17-2022 Bilirubin.indirect [Mass/Vol] TNP [facility] Comment on above: Test not performed Serum or plasma potassium me asurement (moles/volume)Ordered By: Gayathri Leal on 07-17-2022 Potassium [Moles/Vol] 4.0 mmol/L 3.5-5.1 [facility] Serum or plasma sodium measu rement (moles/volume)Ordered By: Gayathri Leal on 07-17-2022 Sodium [Moles/Vol] 139 mmol/L 136-146 [facility] Serum or plasma total biliru bin measurement (mass/volume)Ordered By: Gayathri Leal on 07-17-2022 Bilirubin [Mass/Vol] 0.8 mg/dL 0.3-1.2 [facility] [place] Serum or plasma total carbon dioxide measurement (moles/volume)Ordered By: Gayathri Leal on 07-17-2022 CO2 [Moles/Vol] 22.9 mmol/L 22.0-30.0 [facility] Serum or plasma urea nitroge n measurement (mass/volume)Ordered By: Gayathri Leal on 07-17-2022 Urea nitrogen [Mass/Vol] 12 mg/dL 9- [facility] Specific gravity Auto test s trip (U) [Rel density]Ordered By: Gayathri Leal on 07-17-2022 Specific gravity (U) [Rel density] 1.024 1.001-1.03 0 [facility] Squamous epithelial cells de tection in urine sediment by light microscopyOrdered By: Gayathri Leal on 07-17-2022 Epithelial cells.squamous LM Ql (Urine sed) None seen [HPF] 0-2 [facility] Troponin I.cardiac [Mass/vol ume] in Serum or Plasma by High sensitivity methodOrdered By: Sang Bauer on 07-17-2022 Troponin I.cardiac High sensitivity method [Mass/Vol] 7 pg/mL 0-20 [facility] Urine bacteria detection by automated methodOrdered By: Gayathri Leal on 07-17-2022 Bacteria Auto Ql (U) None seen None Seen [facility] Urine clarity by refractomet ry automatedOrdered By: Gayathri Leal on 07-17-2022 Clarity Refractometry automated (U) Clear Clear [facility] Urine cocaine detectionOrder ed By: Gayathri Leal on 07-17-2022 Cocaine Ql (U) Negative Negative [facility] Urine glucose measurement by automated test strip (mass/volume)Ordered By: Gayathri Leal on 07-17-2022 Glucose Auto test strip (U) [Mass/Vol] Normal mg/dL Normal [facility] Urine hemoglobin detection b y automated test stripOrdered By: Gayathri Leal on 07-17-2022 Hemoglobin Auto test strip Ql (U) Negative Negative [facility] Urine leukocyte esterase det ection by automated test stripOrdered By: Gayathri Leal on 07-17-2022 Leukocyte esterase Auto test strip Ql (U) 1+ Negative [facility] Urobilinogen Auto test strip (U) [Mass/Vol]Ordered By: Gayathri Leal on 07-17-2022 Urobilinogen (U) [Mass/Vol] Normal mg/dL Normal [facility] pH Auto test strip (U)Ordere d By: Gayathri Leal on 07-17-2022 pH (U) 6.5 [pH] 5.0-9.0 [facility] AMMONIAon 07-16-2022 Ammonia (P) [Moles/Vol] 44 umol/L Critically high -32 [facility] Comment on above: Performed By: #### A MM ####[facility] [address] [place] [address]Dr. Donna Malone BNPon 07-16-2022 Natriuretic peptide B (Bld) [Mass/Vol] 236.0 pg/mL Normal <=900.0 [facility] Comment on above: Performed By: #### C MP, BNP ####[facility] [address] [place], [place] [address]Dr. Donna Malone CBC AUTO DIFFon 07-16-2022 BASO # 0.1 103/ul Normal 0.0-0.1 [facility] Comment on above: Performed By: #### C BC ####[facility] [address] [place], [place] [address]Dr. Donna Malone Basophils/100 WBC (Bld) 1.0 % Normal 0.2-2.0 [facility] Comment on above: Performed By: #### C BC ####[facility] [address] [place], [place] [address]Dr. Donna Malone EO # 0.2 103/ul Normal 0.0-0.7 [facility] Comment on above: Performed By: #### C BC ####[facility] [address] [place], [place] [address]Dr. Donna Malone Eosinophils/100 WBC (Bld) 3.3 % Normal 0.9-7.0 [facility] Comment on above: Performed By: #### C BC ####[facility] [address] [place], [place] [address]Dr. Donna Malone Erythrocyte distribution width (RBC) [Ratio] 15.1 % Critically high 11.0-15.0 [facility] Comment on above: Performed By: #### C BC ####[facility] [address] [place], [place] [address]Dr. Donna Malone Hematocrit (Bld) [Volume fraction] 36.1 % Critically low 42.0-54.0 [facility] Comment on above: Performed By: #### C BC ####[facility] [address] [place] [address]Dr. Donna Malone Hemoglobin (Bld) [Mass/Vol] 12.0 g/dL Critically low 14.0-18.0 [facility] Comment on above: Performed By: #### C BC ####[facility] [address] [place] [address]Dr. Rubyyvan Malone IG # 0.01 10e3/ul Normal 0.00-0.03 [facility] Comment on above: Performed By: #### C BC ####[facility] [address] [place], [place] [address]Dr. Donna Malone IG % 0.2 % Normal 0.0-0.5 [facility] Comment on above: Performed By: #### C BC ####[facility] [address] [place], [place] [address]Dr. Donna Malone LYMPH # 2.5 103/ul Normal 1.2-3.8 [facility] Comment on above: Performed By: #### C BC ####[facility] [address] [place], [place] [address]Dr. Donna Malone Lymphocytes/100 WBC (Bld) 41.1 % Normal 20.5-60.0 [facility] Comment on above: Performed By: #### C BC ####[facility] [address] [place], [place] [address]Dr. Donna Malone MANUAL DIFF REQ NO Normal [facility] Comment on above: Performed By: #### C BC ####[facility] [address] [place], [place] [address]Dr. Donna Malone MCH (RBC) [Entitic mass] 30.6 pg Normal 25.9-34.0 [facility] Comment on above: Performed By: #### C BC ####[facility] [address] [place], [place] [address]Dr. Donna Malone MCHC (RBC) [Mass/Vol] 33.2 g/dL Normal 29.9-35.2 [facility] Comment on above: Performed By: #### C BC ####[facility] [address] [place] [id number]. Donna Malone MCV (RBC) [Entitic vol] 92.1 fL Normal 80.0-94.0 [facility] Comment on above: Performed By: #### C BC ####[facility] [address] [place] [id number]. Donna Malone MONO # 0.5 103/ul Normal 0.3-0.8 [facility] Comment on above: Performed By: #### C BC ####[facility] [address] [place] [address]Dr. Donna Faisal Monocytes/100 WBC (Bld) 7.4 % Normal 1.7-12.0 [facility] Comment on above: Performed By: #### C BC ####[facility] [address] [place], [place] [address]Dr. Donna Malone NEUT # 2.9 103/ul Normal 1.4-6.5 [facility] Comment on above: Performed By: #### C BC ####[facility] [address] [place], [place] [address]Dr. Donna Faisal Neutrophils/100 WBC (Bld) 47.0 % Normal 43.0-75.0 [facility] Comment on above: Performed By: #### C BC ####[facility] [address] [place], [place] [address]Dr. Donna Faisal Platelet mean volume (Bld) [Entitic vol] 11.4 fL Normal 9.5-13.5 [facility] Comment on above: Performed By: #### C BC ####[facility] [address] [place], [place] [id number]. Donna Faisal PLT 206 103/ul Normal 150-450 [facility] Comment on above: Performed By: #### C BC ####[facility] [address] [place] [id number]. Donna Malone RBC 3.92 106/ul Critically low 4.70-6.10 [facility] Comment on above: Performed By: #### C BC ####[facility] [address] [place] [address]Dr. Donna Malone WBC 6.1 103/ul Normal 4.0-11.0 [facility] Comment on above: Performed By: #### C BC ####[facility] [address] [place] [address]Dr. Donna Malone ECHO LIMITED STUDYon 022 ECHO LIMITED STUDY Normal [facility] MRI BRAIN WO CONon 2 MRI BRAIN WO CON Normal [facility] PROF 14(COMP METB)on 022 Albumin [Mass/Vol] 2.8 g/dL Critically low 3.4-5.0 [facility] Comment on above: Performed By: #### C MP, BNP ####[facility] [address] [place], [place] [address]Dr. Donna Malone Albumin/Globulin [Mass ratio] 0.9 {ratio} Normal [facility] Comment on above: Performed By: #### C MP, BNP ####[facility] [address] [place] [address]Dr. Donna Malone ALP [Catalytic activity/Vol] 36 U/L Critically low 46-116 [facility] Comment on above: Performed By: #### C MP, BNP ####[facility] [address] [place] [address]Dr. Donna Malone ALT [Catalytic activity/Vol] 13 U/L Critically low 16-63 [facility] Comment on above: Performed By: #### C MP, BNP ####[facility] [address] [place] [address]Dr. Donna Malone Anion gap [Moles/Vol] 10.4 mmol/L Normal [facility] Comment on above: Performed By: #### C MP, BNP ####[facility] [address] [place] [address]Dr. Donna Malone AST [Catalytic activity/Vol] 13 U/L Critically low 15-37 [facility] Comment on above: Performed By: #### C MP, BNP ####[facility] [address] [place] [address]Dr. Donna Malone Bilirubin [Mass/Vol] 0.3 mg/dL Normal 0.2-1.0 [facility] Comment on above: Performed By: #### C MP, BNP ####[facility] [address] [place], [place] [address]Dr. Donna Malone Calcium [Mass/Vol] 8.2 mg/dL Critically low 8.5-10.1 [facility] Comment on above: Performed By: #### C MP, BNP ####[facility] Rec[address] [place], [place] [address]Dr. Donna Malone Chloride [Moles/Vol] 108 mmol/L Critically high 98-107 [facility] Comment on above: Performed By: #### C MP, BNP ####[facility] [address] [place], [place] [address]Dr. Donna Malone CO2 [Moles/Vol] 25.5 mmol/L Normal 21.0-32.0 [facility] Comment on above: Performed By: #### C MP, BNP ####[facility] [address] [place], [place] [address]Dr. Donna Malone Creatinine [Mass/Vol] 0.92 mg/dL Normal 0.70-1.30 [facility] Comment on above: Performed By: #### C MP, BNP ####[facility] [address] [place], [place] [address]Dr. Donna Malone EGFR-AF LEBANESE >60 Normal >=60 [facility] Comment on above: Performed By: #### C MP, BNP ####[facility] [address] [place], [place] [address]Dr. Donna Malone EGFR-NON AF LEBANESE >60 Normal >=60 [facility] Comment on above: Performed By: #### C MP, BNP ####[facility] [address] [place], [place] [address]Dr. Donna Malone Globulin (S) [Mass/Vol] 3.2 g/dL Normal [facility] Comment on above: Performed By: #### C MP, BNP ####[facility] [address] [place] [address]Dr. Donna Malone Glucose [Mass/Vol] 76 mg/dL Normal 74-106 [facility] Comment on above: Performed By: #### C MP, BNP ####[facility] [address] [place] [address]Dr. Donna Malone Potassium [Moles/Vol] 3.9 mmol/L Normal 3.5-5.1 [facility] Comment on above: Performed By: #### C MP, BNP ####[facility] [address] [place] [address]Dr. Donna Malone Protein [Mass/Vol] 6.0 g/dL Critically low 6.4-8.2 [facility] Comment on above: Performed By: #### C MP, BNP ####[facility] [address] [place], [place] [address]Dr. Donna Malone Sodium [Moles/Vol] 140 mmol/L Normal 136-145 [facility] Comment on above: Performed By: #### C MP, BNP ####[facility] [address] [place], [place] [address]Dr. Donna Malone Urea nitrogen [Mass/Vol] 12.0 mg/dL Normal 7.0-18.0 [facility] Comment on above: Performed By: #### C MP, BNP ####[facility] [address] [place], [place] [address]Dr. Donna Malone Urea nitrogen/Creatinine [Mass ratio] 13.0 mg/mg Normal [facility] Comment on above: Performed By: #### C MP, BNP ####[facility] [address] [place], [place] [address]Dr. Donna Malone VIT B12 AND FOLATEon 022 Cobalamin (Vitamin B12) [Mass/Vol] 532.0 pg/mL Normal 193.0-986. 0 [facility] Comment on above: Performed By: #### B 12FOL ####[facility] [address] [place], [place] [address]Dr. Donna Malone FOLATE 13.60 ng/mL Normal 8.60-58.90 [facility] Comment on above: Performed By: #### B 12FOL ####[facility] [address] [place], [place] [address]Dr. Donna Malone AMMONIAon 07-15-2022 Ammonia (P) [Moles/Vol] 23 umol/L Normal 11-32 [facility] Comment on above: Performed By: #### A MM ####[facility] [address] [place], [place] [address]Dr. Donna Malone BLOOD GASES BTYon 07-15-[address] [facility] Comment on above: Performed By: #### A BG ####[facility] Duuisjnsms[address] [place], [place] [address]Dr. Donna Malone ALLENS TEST Positive [facility] Comment on above: Performed By: #### A BG ####[facility] Grnhgzbqoi[address] [place], [place] [address]Dr. Donna Malnoe Base excess Calc (Bld) [Moles/Vol] -1.3000 mmol/L Normal -2.0-2.0 [facility] Comment on above: Performed By: #### A BG ####[facility] Gfiylpeiuo[address] [place], [place] [address]Dr. Donna Malone BIPAP PRESSURE [facility] Comment on above: Performed By: #### A BG ####[facility] Faitqofoog34[address] [place], [place] [address]Dr. Donna Malone CPAP [facility] Comment on above: Performed By: #### A BG ####[facility] Iviukdhhcv[address] [place], [place] [address]Dr. Donna Malone FIO2 [facility] Comment on above: Performed By: #### A BG ####[facility] Kybottvanh8[address] [place], [place] [address]Dr. Donna Malone HCO3 (Bld) [Moles/Vol] 22.7 mmol/L Normal 22.0-26.0 [facility] Comment on above: Performed By: #### A BG ####[facility] Gmrxvloqgi8[address] [place] [address]Dr. Donna Malone LPM Normal [facility] Comment on above: Performed By: #### A BG ####[facility] Niqgebiuol[address] [place], [place] [address]Dr. Donna Malone MINUTE VOLUME Normal [facility] Comment on above: Performed By: #### A BG ####[facility] Owssypjqrr24[address] [place] [address]Dr. Donna Malone Oxygen (Bld) [Partial pressure] 77.7 mm[Hg] Critically low 80.0-100.0 [facility] Comment on above: Performed By: #### A BG ####[facility] Nqafuobnic9[address] [place], [place] [address]Dr. Donna Malone Oxygen saturation in Blood 95.9 % Normal 95.0-100.0 [facility] Comment on above: Performed By: #### A BG ####[facility] Vloetggfpz27[address] [place], [place] [address]Dr. Donna Malone PCO2 33.0 mmHg Critically low 35.0-45.0 [facility] Comment on above: Performed By: #### A BG ####[facility] Oswicnydtl[address] [place], [place] [address]Dr. Donna Malone PEEP [facility] Comment on above: Performed By: #### A BG ####[facility] Wmjnbmcsqj[address] [place], [place] [address]Dr. Donna Malone pH (Bld) 7.446 [pH] Normal 7.350-7.45 0 [facility] Comment on above: Performed By: #### A BG ####[facility] Gxxgumcfjv67[address] [place], [place] [address]Dr. Donna Malone PIP [place] [facility] Comment on above: Performed By: #### A BG ####[facility] Gjxgjwyeee[address] [place], [place] [address]Dr. Donna Malone PS [facility] Comment on above: Performed By: #### A BG ####[facility] Xfodnmygtu46[address] [place], [place] [address]Dr. Donna Malone PUNCTURE SITE RB Normal [facility] Comment on above: Performed By: #### A BG ####[facility] Yumyowfdqw56[address] [place] [address]Dr. Donna Malone RATE Normal [facility] Comment on above: Performed By: #### A BG ####[facility] Rkuknfyzud4584 [place] [address]Dr. Donna Malone VENT MODE Normal [facility] Comment on above: Performed By: #### A BG ####[facility] Xldqkjeade1496 [place] [address]Dr. Donna Malone VT [facility] Comment on above: Performed By: #### A BG ####[facility] Hhjqdhftud38[address] [place] [address]Dr. Donna Malone BNPon 07-15-2022 Natriuretic peptide B (Bld) [Mass/Vol] 111.0 pg/mL Normal <=900.0 [facility] Comment on above: Performed By: #### B DOUGHNUT MACHINE OPERATOR HELPER, CMP, CMADM ####[facility] Hwisigmfjb2939 [place] [address]Dr. Rubyyvan Malone CARDIAC MJ 3-6on 2 CK [Catalytic activity/Vol] 102 U/L Normal 39-308 [facility] Comment on above: Performed By: #### C MREP ####[facility] Nbmbgnnffx7462 [place] [address]Dr. Rubyyvan Maloen CK.MB [Mass/Vol] 3.67 ng/mL Critically high <=3.60 [facility] Comment on above: Performed By: #### C MREP ####[facility] Eqdyndkkvd6538 [place] [address]Dr. Donna Malone HSTROP 13.1 pg/mL Normal 4.0-76.1 [facility] Comment on above: Result Comment: CUT- OFF POINTS HAVE BEEN ESTABLISHED BASED ON THE FOURTH UNIVERSAL DEFINITIONS OF MYOCARDIALINFARCTION. THE UPPER REFERENCE LIMIT (URL) OF TROPONIN, DEFINED THE 99TH PERCENTILE OFcTnI DISTRIBUTION IN A REFERENCE POPULATION, HAS BEEN CONFIRMED THE DECISION THRESHOLDFOR ND DIAGNOSIS. Performed By: #### C MREP ####[facility] [address]ivu[address] [place], [place] [address]Iz. Donna Malone CK [Catalytic activity/Vol] 89 U/L Normal 39-308 [facility] Comment on above: Performed By: #### C MREP ####[facility] Rygapdykym[address] [place], [place] [address]Ru. Donna Malone CK.MB [Mass/Vol] 3.37 ng/mL Normal <=3.60 [facility] Comment on above: Performed By: #### C MREP ####[facility] Fiuumlpcvp5[address] [place] [id number]. Donna Malone HSTROP 11.2 pg/mL Normal 4.0-76.1 [facility] Comment on above: Result Comment: CUT- OFF POINTS HAVE BEEN ESTABLISHED BASED ON THE FOURTH UNIVERSAL DEFINITIONS OF MYOCARDIALINFARCTION. THE UPPER REFERENCE LIMIT (URL) OF TROPONIN, DEFINED THE 99TH PERCENTILE OFcTnI DISTRIBUTION IN A REFERENCE POPULATION, HAS BEEN CONFIRMED THE DECISION THRESHOLDFOR ND DIAGNOSIS. Performed By: #### C MREP ####[facility] Qgetyhkjaz4942 [place] [phone]. Donna Malone CARDIAC MJ ADMITon 022 CK [Catalytic activity/Vol] 76 U/L Normal 39-308 [facility] Comment on above: Performed By: #### B DOUGHNUT MACHINE OPERATOR HELPER, CMP, CMADM ####[facility] Cfzxtmoegh4256 [place] [phone]. Donna Malone CK.MB [Mass/Vol] 2.59 ng/mL Normal <=3.60 [facility] Comment on above: Performed By: #### B DOUGHNUT MACHINE OPERATOR HELPER, CMP, CMADM ####[facility] Atanebcmsn5495 [place] [phone]. Donna Malone HSTROP 10.1 pg/mL Normal 4.0-76.1 [facility] Comment on above: Result Comment: CUT- OFF POINTS HAVE BEEN ESTABLISHED BASED ON THE FOURTH UNIVERSAL DEFINITIONS OF MYOCARDIALINFARCTION. THE UPPER REFERENCE LIMIT (URL) OF TROPONIN, DEFINED THE 99TH PERCENTILE OFcTnI DISTRIBUTION IN A REFERENCE POPULATION, HAS BEEN CONFIRMED THE DECISION THRESHOLDFOR ND DIAGNOSIS. Performed By: #### B DOUGHNUT MACHINE OPERATOR HELPER, CMP, CMADM ####[facility] Dchilgfahe6126 [place] [address]Dr. Donna Malone BINDU 109 ng/mL Critically high 16-96 [facility] Comment on above: Performed By: #### B DOUGHNUT MACHINE OPERATOR HELPER, CMP, CMADM ####[facility] Jkmalnwslt6912 [place] [address]Dr. Donna Malone CBC AUTO DIFFon 07-15-2022 BASO # 0.0 103/ul Normal 0.0-0.1 [facility] Comment on above: Performed By: #### C BC ####[facility] Czqatyzkct8781 [place] [address]Dr. Donna Malone Basophils/100 WBC (Bld) 0.7 % Normal 0.2-2.0 [facility] Comment on above: Performed By: #### C BC ####[facility] Vszfujlqjw[address] [place], [place] [address]Dr. Donna Malone EO # 0.1 103/ul Normal 0.0-0.7 [facility] Comment on above: Performed By: #### C BC ####[facility] Nfpyoaeayn[address] [place], [place] [address]Dr. Donna Malone Eosinophils/100 WBC (Bld) 2.3 % Normal 0.9-7.0 [facility] Comment on above: Performed By: #### C BC ####[facility] Rvqngbcwbv[address] [place], [place] [address]Dr. Donna Malone Erythrocyte distribution width (RBC) [Ratio] 15.2 % Critically high 11.0-15.0 [facility] Comment on above: Performed By: #### C BC ####[facility] Bickvfylnb[address] [place], [place] [address]Dr. Donna Malone Hematocrit (Bld) [Volume fraction] 34.8 % Critically low 42.0-54.0 [facility] Comment on above: Performed By: #### C BC ####[facility] Lsyxpybbyv2[address] [place], [place] [address]Dr. Donna Malone Hemoglobin (Bld) [Mass/Vol] 11.4 g/dL Critically low 14.0-18.0 [facility] Comment on above: Performed By: #### C BC ####[facility] Eabcgniqfy1653 [place] [address]DrElizabeth Beltranyvan Malone IG # 0.01 10e3/ul Normal 0.00-0.03 [facility] Comment on above: Performed By: #### C BC ####[facility] Dgciyukhef9346 [place] [address]Dr. Rubyyvan Malone IG % 0.2 % Normal 0.0-0.5 [facility] Comment on above: Performed By: #### C BC ####[facility] Nonaqdqhdm[address] [place], [place] [address]DrElizabeth Malone LYMPH # 1.6 103/ul Normal 1.2-3.8 [facility] Comment on above: Performed By: #### C BC ####[facility] Ktmfemzqva22[address] [place], [place] [address]DrElizabeth Rubyyvan Malone Lymphocytes/100 WBC (Bld) 26.4 % Normal 20.5-60.0 [facility] Comment on above: Performed By: #### C BC ####[facility] Ksqzmcsnaq[address] [place], [place] [address]DrElizabeth Rubyyvan Malone MANUAL DIFF REQ NO Normal [facility] Comment on above: Performed By: #### C BC ####[facility] Uertsynouq12[address] [place], [place] [address]DrElizabeth Rubyyvan Malone MCH (RBC) [Entitic mass] 30.7 pg Normal 25.9-34.0 [facility] Comment on above: Performed By: #### C BC ####[facility] Stwijivkjq4[address] [place], [place] [address]DrElizabeth Rubyyvan Malone MCHC (RBC) [Mass/Vol] 32.8 g/dL Normal 29.9-35.2 [facility] Comment on above: Performed By: #### C BC ####[facility] S[address]ffyekrrg[address] [place], [place] [address]DrElizabeth Rubyyvan Malone MCV (RBC) [Entitic vol] 93.8 fL Normal 80.0-94.0 [facility] Comment on above: Performed By: #### C BC ####[facility] Ajjckrzymk9[address] [place] [address]DrElizabeth Malone MONO # 0.5 103/ul Normal 0.3-0.8 [facility] Comment on above: Performed By: #### C BC ####[facility] Ihqrdqsmmo9254 [place] [address]DrElizabeth Malone Monocytes/100 WBC (Bld) 7.5 % Normal 1.7-12.0 [facility] Comment on above: Performed By: #### C BC ####[facility] Uzymvmmllj[address] [place], [place] [address]DrElizabeth Malone NEUT # 3.8 103/ul Normal 1.4-6.5 [facility] Comment on above: Performed By: #### C BC ####[facility] Nqfkkiexle2[address] [place], [place] [address]DrElizabeth Malone Neutrophils/100 WBC (Bld) 62.9 % Normal 43.0-75.0 [facility] Comment on above: Performed By: #### C BC ####[facility] Kkysajrjbp[address] [place], [place] [address]DrElizabeth Malone Platelet mean volume (Bld) [Entitic vol] 11.7 fL Normal 9.5-13.5 [facility] Comment on above: Performed By: #### C BC ####[facility] Ryxojfelal[address] [place], [place] [address]Dr. Donna Malone PLT 220 103/ul Normal 150-450 [facility] Comment on above: Performed By: #### C BC ####[facility] Cputfiwcot[address] [place], [place] [address]DrElizabeth Malone RBC 3.71 106/ul Critically low 4.70-6.10 [facility] Comment on above: Performed By: #### C BC ####[facility] Yzlgcuxmfr7055 [place] [phone] Malone WBC 6.0 103/ul Normal 4.0-11.0 [facility] Comment on above: Performed By: #### C BC ####[facility] Vvvkgzbvul[address] [place], [place] [address]Qn. Donna Malone CT CSPINE WO CONon 2 CT CSPINE WO CON Normal [facility] CT HEAD WO CONon 07-15-2022 CT HEAD WO CON Normal [facility] CTA NECK WO W CONon 07-15-20 22 CTA NECK WO W CON Normal [facility] CULTURE URINEon 07-15-2022 CULTURE URINE Culture Observations : LIGHT GROWTH OF MIXED SKIN MICHAEL. NO POTENTIAL PATHOGENS SEEN. Normal [facility] Comment on above: Performed By: #### U RCX ####[facility] [address]qfr[address]bjd18[address] [place], [place] [address]Hf. Donna Faisal Covid-19 PCR ([facility])on SARS-CoV-2 (COVID-19) RNA JOSÉ MIGUEL+probe Ql (Unsp spec) Not detected Normal NOT DETECTED [facility] Comment on above: Result Comment: When [...] for this test is supported by the [place] of Health and Human Service's declaration that [...] be used). Performed By: #### C VDTBH ####[facility] Cppqbyfncf4740 [place], [place] [address]Zv. Rubyyvan Malone DEPAKENE/VALPROICon 07-15-20 22 DEPAKENE 53.6 ug/ml Normal 50.0-100.0 [facility] Comment on above: Performed By: #### V ALP ####[facility] Etdslxchse[address] [place] [address]Dr. Donna Malone DRUG SCREEN RAPID (URINE)on 07-15-2022 AMP Negative Normal NEGATIVE [facility] Comment on above: Performed By: #### D RUGDANNIELLED, ERUR ####[facility] Ttmcxfsqww[address] [place] [address]Dr. Donna Faisal BAR Negative Normal NEGATIVE [facility] Comment on above: Performed By: #### D RUGRPD, ERUR ####[facility] Bbubcuuszl[address] [place] [address]Dr. Rubyyvan Malone BUP Negative Normal NEGATIVE [facility] Comment on above: Performed By: #### D SHARONA, ERUR ####[facility] Zayqtqeyij[address]75 [place] [address]Dr. Rubyyvan Faisal BZO Positive Abnormal NEGATIVE [facility] Comment on above: Performed By: #### D KAMRYND, ERUR ####[facility] Xiupsfhhzg7734 [place] [address]Dr. Donna Faisal EVONNE Negative Normal NEGATIVE [facility] Comment on above: Performed By: #### D SHARONA, ERUR ####[facility] Jrupehlmyz9451 [place] [address]Dr. Donna Malone CUT-OFFS SEE BELOW Normal [facility] Comment on above: Result Comment: AMP [...] ng/mL Performed By: #### D RUGRPD, ERUR ####[facility] Kqvcfponnz1261 [place] [phone]. Donna Malone DRUG CUT HEADER DRUG CLASS TEST SYST EM CUT-OFF CONCENTRATIONS ARE FOLLOWS: Normal [facility] Comment on above: Performed By: #### D SHARONA, ERUR ####[facility] Etlijdvyez62[address] [place] [phone]. Donna Malone mAMP Negative Normal NEGATIVE [facility] Comment on above: Performed By: #### D SHARONA, ERUR ####[facility] Nggymalyav3990 [place] [phone]. Donna Malone MTD Negative Normal NEGATIVE [facility] Comment on above: Performed By: #### D SHARONA, ERUR ####[facility] Fdvclxildn7746 [place] [phone]. Donna Malone OPI Negative Normal NEGATIVE [facility] Comment on above: Performed By: #### D SHARONA, ERUR ####[facility] Tezcfgrsqt2685 [place] [address]Dr. Yilan Malone OXY Negative Normal NEGATIVE [facility] Comment on above: Performed By: #### Calvin TABOR, ERUR ####[facility] Ydrtywjcdx9340 [place] [phone]. Donna Malone PCP Negative Normal NEGATIVE [facility] Comment on above: Performed By: #### Calvin TABOR, ERUR ####[facility] Hubdnspjuw4395 [place] [address]Dr. Rubylan Malone PPX Negative Normal NEGATIVE [facility] Comment on above: Performed By: #### D SHARONA, ERUR ####[facility] Hclsmcaydc8042 [place] [id number]. Donna Malone TCA Positive Abnormal NEGATIVE [facility] Comment on above: Performed By: #### D SHARONA, ERUR ####[facility] Ycqatmdepb5389 [place] [phone]. Donna Malone THC Negative Normal NEGATIVE [facility] Comment on above: Performed By: #### Calvin TABOR, ERUR ####[facility] Fqsatmvwrs1584 [place] [address]Dr. Donna Malone ER URINE PROFILEon 2 Bilirubin Ql (U) Negative Normal NEGATIVE [facility] Comment on above: Performed By: #### Calvin TABOR, ERUR ####[facility] Kzahlhkiyl8346 [place] [address]Dr. Rubyyvan Malone Clarity (U) CLEAR Normal CLEAR [facility] Comment on above: Performed By: #### Calvin TABOR ERUR ####[facility] Fubyvsibvl[address] [place], [place] [address]Dr. Donna Malone Color (U) YELLOW Normal YELLOW [facility] Comment on above: Performed By: #### Calvin TABOR ERUR ####[facility] Dcjzebjwvl[address] [place], [place] [address]Dr. Donna Malone ERUAHD A micrscopic examina tion will be performed if indicated. Normal [facility] Comment on above: Performed By: #### Calvin TABOR ERUR ####[facility] Nijzdahtfj[address] [place], [place] [address]Dr. Donna Malone Glucose Ql (U) Negative Normal NEGATIVE [facility] Comment on above: Performed By: #### Calvin TABOR ERUR ####[facility] Slcjrzcglp13[address] [place], [place] [address]Dr. Donna Malone Hemoglobin Ql (U) Negative Normal NEGATIVE [facility] Comment on above: Performed By: #### Calvin ATBOR ERUR ####[facility] Fgkahkcdgg[address] [place], [place] [address]Dr. Donna Malone Ketones Ql (U) 15 mg/dl Abnormal NEGATIVE [facility] Comment on above: Performed By: #### Calvin TABOR ERUR ####[facility] Lvbohhnuhw[address] [place], [place] [address]Dr. Rubylan Malone LEUKOCYTES Negative Normal NEGATIVE [facility] Comment on above: Performed By: #### Calvin TABOR ERUR ####[facility] Rdomgxpviv289[address] [place], [place] [address]Dr. Donna Malone Nitrite Ql (U) Negative Normal NEGATIVE [facility] Comment on above: Performed By: #### D SHARONA, ERUR ####[facility] Vpgaddzwob[address] [place], [place] [address]Dr. Donna Malone pH (U) 6.0 [pH] Normal 5-9 [facility] Comment on above: Performed By: #### D SHARONA, ERUR ####[facility] Dhncawoudq13[address] [place], [place] [address]Dr. Donna Malone SPEC GRAVITY >=1.030 Abnormal 1.005-<=1. 025 [facility] Comment on above: Performed By: #### Calvin TABOR, ERUR ####[facility] Fdjzcfplor[address] [place], [place] [address]Dr. Donna Malone UA PROTEIN TRACE Normal NEGATIVE/ TRACE [facility] Comment on above: Performed By: #### Calvin TABOR, ERUR ####[facility] Gtgucjsffu7[address] [place], [place] [address]Dr. Donna Malone UR MICRO IND NOT INDICATED Normal [facility] Comment on above: Performed By: #### D SHARONA ERUR ####[facility] Nuskgwmpzx88[address] [place], [place] [address]Dr. Donna Malone Urobilinogen Qn (U) 0.2 {Jermain'U}/dL Normal 0.2 - 1. 0 [facility] Comment on above: Performed By: #### Calvin TABOR, ERUR ####[facility] Mgpayweuwo60[address] [place], [place] [address]Dr. Donna Malone ETHANOL (BLD ALC)on 07-15-20 22 ALC NOTE NOTE: 80 mg/dl is th e legal limit for a blood alcohol level Normal [facility] Comment on above: Performed By: #### E TH ####[facility] Wlamiisaci[address] [place], [place] [address]Dr. Donna Malone Ethanol [Mass/Vol] mg/dL Normal [facility] Comment on above: Performed By: #### E TH ####[facility] Vlcpnfanqn8[address] [place], [place] [address]Dr. Donna Malone LACTATE/LACTIC ACIDon 2021 Lactate [Moles/Vol] 1.3 mmol/L Normal 0.4-1.9 [facility] Comment on above: Performed By: #### L ACT ####[facility] Pukqyvteiy8[address] [place] [address]Dr. Donna Malone PROF 14(COMP METB)on 022 Albumin [Mass/Vol] 2.9 g/dL Critically low 3.4-5.0 [facility] Comment on above: Performed By: #### B DOUGHNUT MACHINE OPERATOR HELPER, CMP, CMADM ####[facility] Hcjmulxanq9074 [place] [address]Dr. Donna Malone Albumin/Globulin [Mass ratio] 0.9 {ratio} Normal [facility] Comment on above: Performed By: #### B DOUGHNUT MACHINE OPERATOR HELPER, CMP, CMADM ####[facility] Xlknnoisoh7036 [place] [address]Dr. Donna Malone ALP [Catalytic activity/Vol] 37 U/L Critically low 46-116 [facility] Comment on above: Performed By: #### B DOUGHNUT MACHINE OPERATOR HELPER, CMP, CMADM ####[facility] Kyizpendqr8774 [place] [address]Dr. Donna Malone ALT [Catalytic activity/Vol] 10 U/L Critically low 16-63 [facility] Comment on above: Performed By: #### B DOUGHNUT MACHINE OPERATOR HELPER, CMP, CMADM ####[facility] Cygyfdjyqe8913 [place] [address]Dr. Donna Malone Anion gap [Moles/Vol] 8.0 mmol/L Normal [facility] Comment on above: Performed By: #### B DOUGHNUT MACHINE OPERATOR HELPER, CMP, CMADM ####[facility] Xxjrhtklrr0292 [place] [address]Dr. Donna Malone AST [Catalytic activity/Vol] 12 U/L Critically low 15-37 [facility] Comment on above: Performed By: #### B DOUGHNUT MACHINE OPERATOR HELPER, CMP, CMADM ####[facility] [address] [place] [address]Dr. Donna Malone Bilirubin [Mass/Vol] 0.3 mg/dL Normal 0.2-1.0 [facility] Comment on above: Performed By: #### B DOUGHNUT MACHINE OPERATOR HELPER, CMP, CMADM ####[facility] Mlnxvjhfnz[address] [place] [address]Dr. Donna Malone Calcium [Mass/Vol] 7.9 mg/dL Critically low 8.5-10.1 Th e [facility] Comment on above: Performed By: #### B DOUGHNUT MACHINE OPERATOR HELPER, CMP, CMADM ####[facility] Oorv[address]awps[address] [place] [address]Dr. Donna Malone Chloride [Moles/Vol] 107 mmol/L Normal 98-107 [facility] Comment on above: Performed By: #### B DOUGHNUT MACHINE OPERATOR HELPER, CMP, CMADM ####[facility] [address]oec[address] [place], [place] [address]Dr. Donna Malone CO2 [Moles/Vol] 27.1 mmol/L Normal 21.0-32.0 [facility] Comment on above: Performed By: #### B DOUGHNUT MACHINE OPERATOR HELPER, CMP, CMADM ####[facility] Znnptubusb[address] [place], [place] [address]Dr. Donna Malone Creatinine [Mass/Vol] 0.99 mg/dL Normal 0.70-1.30 [facility] Comment on above: Performed By: #### B DOUGHNUT MACHINE OPERATOR HELPER, CMP, CMADM ####[facility] Mxcqbojcgq[address] [place], [place] [address]Dr. Donna Malone EGFR-AF LEBANESE >60 Normal >=60 [facility] Comment on above: Performed By: #### B DOUGHNUT MACHINE OPERATOR HELPER, CMP, CMADM ####[facility] [address]fmpvhbrj[address] [place], [place] [address]Dr. Donna Malone EGFR-NON AF LEBANESE >60 Normal >=60 [facility] Comment on above: Performed By: #### B DOUGHNUT MACHINE OPERATOR HELPER, CMP, CMADM ####[facility] Dtfrutbobk[address] [place], [place] [address]Dr. Donna Malone Globulin (S) [Mass/Vol] 3.3 g/dL Normal [facility] Comment on above: Performed By: #### B DOUGHNUT MACHINE OPERATOR HELPER, CMP, CMADM ####[facility] Ghmieczyaa[address] [place], [place] [address]Dr. Rubyyvan Malone Glucose [Mass/Vol] 101 mg/dL Normal 74-106 [facility] Comment on above: Performed By: #### B DOUGHNUT MACHINE OPERATOR HELPER, CMP, CMADM ####[facility] Ieauxblhmk[address] [place] [address]Dr. Rubyyvan Malone Potassium [Moles/Vol] 4.1 mmol/L Normal 3.5-5.1 [facility] Comment on above: Performed By: #### B DOUGHNUT MACHINE OPERATOR HELPER, CMP, CMADM ####[facility] Vizrjocwch[address] [place] [address]Dr. Donna Malone Protein [Mass/Vol] 6.2 g/dL Critically low 6.4-8.2 [facility] Comment on above: Performed By: #### B DOUGHNUT MACHINE OPERATOR HELPER, CMP, CMADM ####[facility] Ziobrqmqhx[address] [place], [place] [address]Dr. Donna Malone Sodium [Moles/Vol] 138 mmol/L Normal 136-145 [facility] Comment on above: Performed By: #### B DOUGHNUT MACHINE OPERATOR HELPER, CMP, CMADM ####[facility] Svbhygfdlu264[address] [place] [address]Dr. Rubyyvan Malone Urea nitrogen [Mass/Vol] 16.0 mg/dL Normal 7.0-18.0 [facility] Comment on above: Performed By: #### B DOUGHNUT MACHINE OPERATOR HELPER, CMP, CMADM ####[facility] Wrpgmdmyck[address] [place] [address]Dr. Donna Malone Urea nitrogen/Creatinine [Mass ratio] 16.2 mg/mg Normal [facility] Comment on above: Performed By: #### B DOUGHNUT MACHINE OPERATOR HELPER, CMP, CMADM ####[facility] Dgfwgvmryj[address] [place] [address]Dr. Donna Malone PROTIMEon 07-15-2022 INR Coag (PPP) [Relative time] 1.06 {INR} Normal [facility] Comment on above: Performed By: #### P T, PTT ####[facility] Tjesvuwzyi[address] [place], [place] [address]Dr. Donna Malone INR GUIDELINES SEE BELOW Normal The [facility] Comment on above: Result Comment: FLORESITA RED INR: 2.0 - 3.0 CONDITIONS NOT LISTED BELOW 2.5 - 3.5 FOR PROSTHETIC HEART VALVE REPLACEMENT 2.5 - 3.5 RECURRENT THROMBOSIS Performed By: #### P T, PTT ####[facility] Tjgmmpsozl[address] [place], [place] [address]Dr. Donna Malone PT Coag (PPP) [Time] 11.4 s Normal 9.0-11.6 [facility] Comment on above: Performed By: #### P T, PTT ####[facility] Wvqcuklomj[address] [place], [place] [address]Dr. Donna Malone PTTon 07-15-2022 aPTT Coag (Bld) [Time] 30.8 s Normal 22.3-36.2 [facility] Comment on above: Performed By: #### P T, PTT ####[facility] Xlahlxwuyu8[address] [place], [place] [address]Dr. Donna Malone XR CHEST 1 Von 07-15-2022 XR CHEST 1 V Normal [facility] CULTURE URINEon 06-24-2022 CULTURE URINE Normal The [facility] Comment on above: Performed By: #### U RCX ####[facility] Ctntjxechs[address] [place], [place] [address]Dr. Donna Malone UA RANDOM W/MICROSCOPICon BACTERIA NONE SEEN Normal NONE SEEN The [facility] Comment on above: Performed By: #### U AMIC ####[facility] Uerihmztod[address] [place], [place] [address]Dr. Donna Malone Bilirubin Ql (U) Negative Normal NEGATIVE [facility] Comment on above: Performed By: #### U AMIC ####[facility] Qzkqqnmczt45[address] [place], [place] [address]Dr. Donna Malone CAST NONE SEEN Normal NONE SEEN The [facility] Comment on above: Performed By: #### U AMIC ####[facility] Ypienvnitd[address] [place], [place] [address]Dr. Donna Malone Clarity (U) CLEAR Normal CLEAR [facility] Comment on above: Performed By: #### U AMIC ####[facility] Cgmhkvpwsg[address] [place] [address]Dr. Donna Malone Color (U) DK. YELLOW Normal YELLOW [facility] Comment on above: Performed By: #### U AMIC ####[facility] Mhzblvxwui[address] [place], [place] [address]Dr. Donna Malone Crystals LM Nom (Urine sed) NONE SEEN Normal NONE SEEN The [facility] Comment on above: Performed By: #### U AMIC ####[facility] Qyjvraowjo[address] [place], [place] [address]Dr. Donna Malone Epithelial cells LM Ql (Urine sed) NONE SEEN Normal NONE SEEN /RARE [facility] Comment on above: Performed By: #### U AMIC ####[facility] Mmkpufenoj[address] [place], [place] [address]Dr. Donna Malone Glucose Ql (U) 100 mg/dl Abnormal NEGATIVE The [facility] Comment on above: Performed By: #### U AMIC ####[facility] Qktsoeqttw[address] [place], [place] [address]Dr. Donna Malone Hemoglobin Ql (U) Negative Normal NEGATIVE The [facility] Comment on above: Performed By: #### U AMIC ####[facility] Vnoexmvrkp[address] [place], [place] [address]Dr. Donna Malone Ketones Ql (U) TRACE Abnormal NEGATIVE The [facility] Comment on above: Performed By: #### U AMIC ####[facility] Czzpupvqit[address] [place], [place] [address]Dr. Donna Malone LEUKOCYTES Negative Normal NEGATIVE The [facility] Comment on above: Performed By: #### U AMIC ####[facility] Cmcxtznwde[address] [place], [place] [address]Dr. Donna Malone MUCOUS SMALL Abnormal NONE SEEN The [facility] Comment on above: Performed By: #### U AMIC ####[facility] Yrfeqarmdk8[address] [place], [place] [address]Dr. Donna Malone Nitrite Ql (U) Negative Normal NEGATIVE The [facility] Comment on above: Performed By: #### U AMIC ####[facility] Ccjrbuvvwl[address] [place], [place] [address]Dr. Donna Malone pH (U) 6.0 [pH] Normal 5-9 [facility] Comment on above: Performed By: #### U AMIC ####[facility] Ctnmdsutrc[address] [place] [address]Dr. Donna Malone RBC NONE SEEN Abnormal 0-2 [facility] Comment on above: Performed By: #### U AMIC ####[facility] [address]te[address] [place] [id number]. Donna Malone SPEC GRAVITY 1.030 Abnormal 1.005-<=1. 025 [facility] Comment on above: Performed By: #### U AMIC ####[facility] Pdjtqqstgz9746 [place] [address]Dr. Donna Malone UA PROTEIN Negative Normal NEGATIVE/ TRACE [facility] Comment on above: Performed By: #### U AMIC ####[facility] Wzvwgyrynf[address] [place] [address]Dr. Donna Malone Urobilinogen Qn (U) 0.2 {Jermain'U}/dL Normal 0.2 - 1. 0 [facility] Comment on above: Performed By: #### U AMIC ####[facility] Uevfpyfame[address] [place] [address]Dr. Donna Malone WBC 2-5 Abnormal NONE SEEN The [facility] Comment on above: Performed By: #### U AMIC ####[facility] Rz[address]gfaocf[address] [place] [id number]. Donna Malone COMPLIANCE DRUG SCREENon PDF . Normal [facility] Comment on above: Performed By: #### D SDOALC ####[facility] S[address]ormjzkw[address] [place] [address]Dr. Donna Malone Summary FINAL Normal [facility] Comment on above: Result Comment: =====TOXASSURE COMP [...] call . Performed By: #### D SDOALC ####[facility] Racrvicsnn64[address] [place], [place] [address]Dr. Donna Malone CBC AUTO DIFFon 05-16-2022 BASO # 0.0 103/ul Normal 0.0-0.1 [facility] Comment on above: Performed By: #### C BC ####[facility] Mtehdonyzp[address] [place], [place] [address]Dr. Donna Malone Basophils/100 WBC (Bld) 0.4 % Normal 0.2-2.0 [facility] Comment on above: Performed By: #### C BC ####[facility] Npuitiggdh45[address] [place], [place] [address]Dr. Donna Malone EO # 0.1 103/ul Normal 0.0-0.7 [facility] Comment on above: Performed By: #### C BC ####[facility] Sacrzwtkiz[address] [place], [place] [address]Dr. Donna Malone Eosinophils/100 WBC (Bld) 0.9 % Normal 0.9-7.0 [facility] Comment on above: Performed By: #### C BC ####[facility] Loybrddlgm[address] [place] [address]Dr. Donna Malone Erythrocyte distribution width (RBC) [Ratio] 14.9 % Normal 11.0-15.0 [facility] Comment on above: Performed By: #### C BC ####[facility] Lgbgjnzdel40[address] [place] [address]Dr. Donna Malone Hematocrit (Bld) [Volume fraction] 41.0 % Critically low 42.0-54.0 [facility] Comment on above: Performed By: #### C BC ####[facility] Orpmkgyckr[address] [place], [place] [address]Dr. Donna Malone Hemoglobin (Bld) [Mass/Vol] 13.3 g/dL Critically low 14.0-18.0 [facility] Comment on above: Performed By: #### C BC ####[facility] Rlbfkyfmcv7[address] [place], [place] [address]Dr. Donna Malone IG # 0.03 10e3/ul Normal 0.00-0.03 [facility] Comment on above: Performed By: #### C BC ####[facility] Svbrmquddv[address] [place], [place] [address]Dr. Donna Malone IG % 0.3 % Normal 0.0-0.5 [facility] Comment on above: Performed By: #### C BC ####[facility] Emjcvyljcn[address] [place], [place] [address]Dr. Donna Malone LYMPH # 1.4 103/ul Normal 1.2-3.8 [facility] Comment on above: Performed By: #### C BC ####[facility] Xklujswwgj[address] [place], [place] [address]Dr. Donna Malone Lymphocytes/100 WBC (Bld) 15.3 % Critically low 20.5-60.0 [facility] Comment on above: Performed By: #### C BC ####[facility] Ubwphwhaay4[address] [place], [place] [address]Dr. Donna Malone MANUAL DIFF REQ NO Normal [facility] Comment on above: Performed By: #### C BC ####[facility] Pfnusijagq032[address] [place] [phone]. Donna Malone MCH (RBC) [Entitic mass] 29.4 pg Normal 25.9-34.0 [facility] Comment on above: Performed By: #### C BC ####[facility] Rfgepkgnhq7809 [place] [phone]. Donna Malone MCHC (RBC) [Mass/Vol] 32.4 g/dL Normal 29.9-35.2 [facility] Comment on above: Performed By: #### C BC ####[facility] Vxhfbqyzxs5994 [place] [phone]. Donna Malone MCV (RBC) [Entitic vol] 90.5 fL Normal 80.0-94.0 [facility] Comment on above: Performed By: #### C BC ####[facility] Jabawpypuk[address] [place], [place] [address]Dr. Donna Malone MONO # 0.8 103/ul Normal 0.3-0.8 [facility] Comment on above: Performed By: #### C BC ####[facility] Yoptejpoxx[address] [place] [address]Dr. Rubyyvan Malone Monocytes/100 WBC (Bld) 8.7 % Normal 1.7-12.0 [facility] Comment on above: Performed By: #### C BC ####[facility] Jkafpgqlfh[address] [place], [place] [address]Dr. Rubyyvan Malone NEUT # 6.9 103/ul Critically high 1.4-6.5 [facility] Comment on above: Performed By: #### C BC ####[facility] Awaxewwszx[address] [place], [place] [id number]. Donna Malone Neutrophils/100 WBC (Bld) 74.4 % Normal 43.0-75.0 [facility] Comment on above: Performed By: #### C BC ####[facility] Zabumodcfg[address] [place], [place] [address]Dr. Donna Malone Platelet mean volume (Bld) [Entitic vol] 11.9 fL Normal 9.5-13.5 [facility] Comment on above: Performed By: #### C BC ####[facility] Hgysihyuab[address] [place] [phone]. Donna Malone PLT 174 103/ul Normal 150-450 [facility] Comment on above: Performed By: #### C BC ####[facility] Doufgpcfxi26[address] [place] [phone]. Donna Malone RBC 4.53 106/ul Critically low 4.70-6.10 [facility] Comment on above: Performed By: #### C BC ####[facility] Lzngvnvqvb7141 [place] [phone]. Donna Malone WBC 9.2 103/ul Normal 4.0-11.0 [facility] Comment on above: Performed By: #### C BC ####[facility] Cqslfcicqw7[address] [place] [address]Dr. Donna Malone PROF 14(COMP METB)on 022 Albumin [Mass/Vol] 3.0 g/dL Critically low 3.4-5.0 [facility] Comment on above: Performed By: #### C MP ####[facility] Siyywcrigb32[address] [place] [phone]. Donna Faisal Albumin/Globulin [Mass ratio] 0.8 {ratio} Normal [facility] Comment on above: Performed By: #### C MP ####[facility] Wzdzexjdmk4[address] [place] [address]Dr. Donna aMlone ALP [Catalytic activity/Vol] 39 U/L Critically low 46-116 [facility] Comment on above: Performed By: #### C MP ####[facility] Xlryufiuiu87[address] [place] [address]Dr. Donna Malone ALT [Catalytic activity/Vol] 16 U/L Normal 16-63 [facility] Comment on above: Performed By: #### C MP ####[facility] Jhqbpnexje3[address] [place] [address]Dr. Donna Malone Anion gap [Moles/Vol] 10.8 mmol/L Normal [facility] Comment on above: Performed By: #### C MP ####[facility] Vgoadaaosr8184 [place] [phone]. Donna Malone AST [Catalytic activity/Vol] 9 U/L Critically low 15-37 [facility] Comment on above: Performed By: #### C MP ####[facility] Rxfyqygyut6159 [place] [phone]. Donna Malone Bilirubin [Mass/Vol] 0.3 mg/dL Normal 0.2-1.0 [facility] Comment on above: Performed By: #### C MP ####[facility] Rpeuywqhbt1579 [place] [phone]. Donna Malone Calcium [Mass/Vol] 8.8 mg/dL Normal 8.5-10.1 [facility] Comment on above: Performed By: #### C MP ####[facility] Bbyboinrkm8942 [place] [address]Dr. Donna Malone Chloride [Moles/Vol] 105 mmol/L Normal 98-107 [facility] Comment on above: Performed By: #### C MP ####[facility] Fkwtwfycpo3097 [place] [phone]. Donna Malone CO2 [Moles/Vol] 26.7 mmol/L Normal 21.0-32.0 [facility] Comment on above: Performed By: #### C MP ####[facility] Vumnydomds101[address] [place] [address]Dr. Donna Malone Creatinine [Mass/Vol] 0.97 mg/dL Normal 0.70-1.30 [facility] Comment on above: Performed By: #### C MP ####[facility] Oppocmzuoa80[address] [place] [phone]. Donna Malone EGFR-AF LEBANESE >60 Normal >=60 [facility] Comment on above: Performed By: #### C MP ####[facility] Sickmratwv9136 [place] [phone]. Donna Malone EGFR-NON AF LEBANESE >60 Normal >=60 [facility] Comment on above: Performed By: #### C MP ####[facility] Ukqyatpapw[address] [place], [place] [address]Dr. Donna Malone Globulin (S) [Mass/Vol] 3.7 g/dL Normal [facility] Comment on above: Performed By: #### C MP ####[facility] Hsalzjvydb7422 [place] [address]Dr. Donna Malone Glucose [Mass/Vol] 98 mg/dL Normal 74-106 [facility] Comment on above: Performed By: #### C MP ####[facility] Qtpqvknvhn0561 [place] [address]Dr. Donna Malone Potassium [Moles/Vol] 3.5 mmol/L Normal 3.5-5.1 [facility] Comment on above: Performed By: #### C MP ####[facility] Vepguimcxn5077 [place] [address]Dr. Donna Malone Protein [Mass/Vol] 6.7 g/dL Normal 6.4-8.2 [facility] Comment on above: Performed By: #### C MP ####[facility] Isrqlyxuea[address] [place], [place] [address]Dr. Donna Malone Sodium [Moles/Vol] 139 mmol/L Normal 136-145 [facility] Comment on above: Performed By: #### C MP ####[facility] Pdgehlegzr3842[address] [place], [place] [address]Dr. Donna Malone Urea nitrogen [Mass/Vol] 11.0 mg/dL Normal 7.0-18.0 [facility] Comment on above: Performed By: #### C MP ####[facility] Zrawzfprdn[address] [place], [place] [address]Dr. Donna Faisal Urea nitrogen/Creatinine [Mass ratio] 11.3 mg/mg Normal [facility] Comment on above: Performed By: #### C MP ####[facility] Fdwrixsnrz88[address] [place], [place] [address]Dr. Donna Faisal T3, TOTAL (TRIIODOTHYRONINE) on 05-16-2022 T3, TOTAL 86 ng/dL Normal 71-180 [facility] Comment on above: Performed By: #### T 3TOTAL ####[facility] Qmhwtfwzcu[address] [place], [place] [address]Dr. Donna Faisal T4 LABCORPon 05-16-2022 T4 [Mass/Vol] 6.4 ug/dL Normal 4.5-12.0 [facility] Comment on above: Performed By: #### T 4LC ####[facility] Hunotzyenl[address] [place], [place] [address]Dr. Donna Malone CBC AUTO DIFFon 05-15-2022 BASO # 0.0 103/ul Normal 0.0-0.1 [facility] Comment on above: Performed By: #### C BC ####[facility] Nuldbylnlj[address] [place], [place] [address]Dr. Rubyyvan Malone Basophils/100 WBC (Bld) 0.3 % Normal 0.2-2.0 [facility] Comment on above: Performed By: #### C BC ####[facility] G[address]fhohxlbk[address] [place], [place] [address]Dr. Donna Malone EO # 0.2 103/ul Normal 0.0-0.7 [facility] Comment on above: Performed By: #### C BC ####[facility] Ysswbedzeo[address] [place], [place] [address]Dr. Rubyyvan Malone Eosinophils/100 WBC (Bld) 2.0 % Normal 0.9-7.0 [facility] Comment on above: Performed By: #### C BC ####[facility] Shvhqofiln68[address] [place], [place] [address]Dr. Donna Malone Erythrocyte distribution width (RBC) [Ratio] 14.6 % Normal 11.0-15.0 [facility] Comment on above: Performed By: #### C BC ####[facility] Uvhhbkcisa[address] [place], [place] [address]Dr. Donna Malone Hematocrit (Bld) [Volume fraction] 38.2 % Critically low 42.0-54.0 [facility] Comment on above: Performed By: #### C BC ####[facility] Dvtqcsmize[address] [place], [place] [address]Dr. Donna Malone Hemoglobin (Bld) [Mass/Vol] 12.7 g/dL Critically low 14.0-18.0 [facility] Comment on above: Performed By: #### C BC ####[facility] Tmxngjlrkn3[address] [place] [address]Dr. Donna Malone IG # 0.04 10e3/ul Critically high 0.00-0.03 [facility] Comment on above: Performed By: #### C BC ####[facility] Zmcpxqrzsb0120 [place] [address]Dr. Donna Malone IG % 0.4 % Normal 0.0-0.5 [facility] Comment on above: Performed By: #### C BC ####[facility] Mnfxrxdjzj[address] [place], [place] [address]Dr. Donna Malone LYMPH # 1.4 103/ul Normal 1.2-3.8 [facility] Comment on above: Performed By: #### C BC ####[facility] Xqdnmwtmyq1323 [place] [address]Dr. Donna Malone Lymphocytes/100 WBC (Bld) 14.9 % Critically low 20.5-60.0 [facility] Comment on above: Performed By: #### C BC ####[facility] Yjxbupyntx5[address] [place] [address]Dr. Donna Malone MANUAL DIFF REQ NO Normal [facility] Comment on above: Performed By: #### C BC ####[facility] Xzkvmydpwo7403 [place] [address]Dr. Donna Malone MCH (RBC) [Entitic mass] 30.0 pg Normal 25.9-34.0 [facility] Comment on above: Performed By: #### C BC ####[facility] [facility] Tdyrpbisqh[address] [place] [address]Dr. Donna Malone MCHC (RBC) [Mass/Vol] 33.2 g/dL Normal 29.9-35.2 [facility] Comment on above: Performed By: #### C BC ####[facility] Trcpgzprmo[address] [place] [address]Dr. Donna Malone MCV (RBC) [Entitic vol] 90.3 fL Normal 80.0-94.0 [facility] Comment on above: Performed By: #### C BC ####[facility] Eruzifjnvq16[address] [place] [id number]. Donna Malone MONO # 0.8 103/ul Normal 0.3-0.8 [facility] Comment on above: Performed By: #### C BC ####[facility] Masofzmzcx8797 [place] [id number]. Donna Malone Monocytes/100 WBC (Bld) 8.5 % Normal 1.7-12.0 [facility] Comment on above: Performed By: #### C BC ####[facility] Mfhwpffvhw0701 [place] [id number]. Donna Malone NEUT # 6.8 103/ul Critically high 1.4-6.5 [facility] Comment on above: Performed By: #### C BC ####[facility] Cfmmsyhkpf1902 [place] [address]Dr. Donna Malone Neutrophils/100 WBC (Bld) 73.9 % Normal 43.0-75.0 [facility] Comment on above: Performed By: #### C BC ####[facility] Qrnfvpknsm4866 [place] [address]Dr. Donna Malone Platelet mean volume (Bld) [Entitic vol] 12.0 fL Normal 9.5-13.5 [facility] Comment on above: Performed By: #### C BC ####[facility] Fntpvljsji33[address] [place] [address]Dr. Donna Malone PLT 154 103/ul Normal 150-450 [facility] Comment on above: Performed By: #### C BC ####[facility] Esfwqkilas3279 [place] [id number]. Donna Malone RBC 4.23 106/ul Critically low 4.70-6.10 [facility] Comment on above: Performed By: #### C BC ####[facility] Htczbbntws3419 [place] [id number]. Donna Malone WBC 9.2 103/ul Normal 4.0-11.0 [facility] Comment on above: Performed By: #### C BC ####[facility] Axyysjxssw2460 [place] [address]Dr. Donna Malone PROF 14(COMP METB)on 022 Albumin [Mass/Vol] 2.9 g/dL Critically low 3.4-5.0 [facility] Comment on above: Performed By: #### C MP ####[facility] Uquopwrzzs4446 [place] [address]Dr. Donna Malone Albumin/Globulin [Mass ratio] 0.9 {ratio} Normal [facility] Comment on above: Performed By: #### C MP ####[facility] Botirflzrs6[address] [place], [place] [address]Dr. Donna Malone ALP [Catalytic activity/Vol] 41 U/L Critically low 46-116 [facility] Comment on above: Performed By: #### C MP ####[facility] Vwfxbnqlju14[address] [place], [place] [address]Dr. Donna Malone ALT [Catalytic activity/Vol] 12 U/L Critically low 16-63 [facility] Comment on above: Performed By: #### C MP ####[facility] Ytoeevthga40[address] [place], [place] [address]Dr. Donna Malone Anion gap [Moles/Vol] 5.6 mmol/L Normal [facility] Comment on above: Performed By: #### C MP ####[facility] Qyksawszjo099[address] [place], [place] [address]Dr. Donna Malone AST [Catalytic activity/Vol] 8 U/L Critically low 15-37 [facility] Comment on above: Performed By: #### C MP ####[facility] Lyfjjywjwe9[address] [place], [place] [address]Dr. Donna Malone Bilirubin [Mass/Vol] 0.5 mg/dL Normal 0.2-1.0 [facility] Comment on above: Performed By: #### C MP ####[facility] Zkofzsdxmz8[address] [place], [place] [address]Dr. Donna Malone Calcium [Mass/Vol] 8.3 mg/dL Critically low 8.5-10.1 [facility] Comment on above: Performed By: #### C MP ####[facility] Ypzltpckwb7488 [place] [address]Dr. Donna Malone Chloride [Moles/Vol] 106 mmol/L Normal 98-107 [facility] Comment on above: Performed By: #### C MP ####[facility] Mrojhrtdqp2115 [place] [address]Dr. Donna Malone CO2 [Moles/Vol] 23.1 mmol/L Normal 21.0-32.0 [facility] Comment on above: Performed By: #### C MP ####[facility] Hpxafqoyog9913 [place] [address]Dr. Donna Malone Creatinine [Mass/Vol] 0.82 mg/dL Normal 0.70-1.30 [facility] Comment on above: Performed By: #### C MP ####[facility] Fpkzowepiu9344[address] [place], [place] [address]Dr. Donna Malone EGFR-AF LEBANESE >60 Normal >=60 [facility] Comment on above: Performed By: #### C MP ####[facility] Ctggaarjjn2[address] [place], [place] [address]Dr. Donna Malone EGFR-NON AF LEBANESE >60 Normal >=60 [facility] Comment on above: Performed By: #### C MP ####[facility] Dvtnawkfzo340[address] [place], [place] [address]Dr. Donna Malone Globulin (S) [Mass/Vol] 3.2 g/dL Normal [facility] Comment on above: Performed By: #### C MP ####[facility] Chhgvrzuow866[address] [place], [place] [address]Dr. Donna Malone Glucose [Mass/Vol] 81 mg/dL Normal 74-106 [facility] Comment on above: Performed By: #### C MP ####[facility] Hccwoaavct086[address] [place], [place] [address]Dr. Donna Malone Potassium [Moles/Vol] 3.7 mmol/L Normal 3.5-5.1 [facility] Comment on above: Performed By: #### C MP ####[facility] Fiygyijaea56[address] [place], [place] [address]Dr. Donna Malone Protein [Mass/Vol] 6.1 g/dL Critically low 6.4-8.2 [facility] Comment on above: Performed By: #### C MP ####[facility] Oxfskfhthk8978[address] [place], [place] [address]Dr. Donna Maolne Sodium [Moles/Vol] 131 mmol/L Critically low 136-145 Th [facility] Comment on above: Performed By: #### C MP ####[facility] Ezbdjazwyu8376[address] [place], [place] [address]Dr. Donna Malone Urea nitrogen [Mass/Vol] 17.0 mg/dL Normal 7.0-18.0 [facility] Comment on above: Performed By: #### C MP ####[facility] Vqymexmrta2673[address] [place], [place] [address]Dr. Donna Malone Urea nitrogen/Creatinine [Mass ratio] 20.7 mg/mg Normal [facility] Comment on above: Performed By: #### C MP ####[facility] Bzyzamgwhx015[address] [place], [place] [address]Dr. Donna Malone CBC AUTO DIFFon 05-14-2022 BASO # 0.1 103/ul Normal 0.0-0.1 [facility] Comment on above: Performed By: #### C BC ####[facility] Wgdywufjab0739[address] [place], [place] [address]Dr. Donna Malone Basophils/100 WBC (Bld) 0.8 % Normal 0.2-2.0 [facility] Comment on above: Performed By: #### C BC ####[facility] Bvgdbdwbiq076[address] [place], [place] [address]Dr. Donna Malone EO # 0.3 103/ul Normal 0.0-0.7 [facility] Comment on above: Performed By: #### C BC ####[facility] Vhjwggiswy607[address] [place], [place] [address]Dr. Donna Malone Eosinophils/100 WBC (Bld) 4.2 % Normal 0.9-7.0 [facility] Comment on above: Performed By: #### C BC ####[facility] Blkpdvgdog7796 [place] [address]Dr. Donna Malone Erythrocyte distribution width (RBC) [Ratio] 14.7 % Normal 11.0-15.0 [facility] Comment on above: Performed By: #### C BC ####[facility] Nqasdlpsqz4576 [place] [address]Dr. Donna Malone Hematocrit (Bld) [Volume fraction] 36.5 % Critically low 42.0-54.0 [facility] Comment on above: Performed By: #### C BC ####[facility] Cogkvxfoaj7122[address] [place], [place] [address]Dr. Donna Malone Hemoglobin (Bld) [Mass/Vol] 11.9 g/dL Critically low 14.0-18.0 [facility] Comment on above: Performed By: #### C BC ####[facility] Nzyufonpto5524[address] [place], [place] [address]Dr. Donna Malone IG # 0.01 10e3/ul Normal 0.00-0.03 [facility] Comment on above: Performed By: #### C BC ####[facility] Iighefeoft3463[address] [place], [place] [address]Dr. Donna Malone IG % 0.2 % Normal 0.0-0.5 [facility] Comment on above: Performed By: #### C BC ####[facility] Yphlxexzjf[address] [place], [place] [address]Dr. Donna Malone LYMPH # 2.1 103/ul Normal 1.2-3.8 [facility] Comment on above: Performed By: #### C BC ####[facility] Yzxkslvabe847[address] [place], [place] [address]Dr. Donna Malone Lymphocytes/100 WBC (Bld) 32.1 % Normal 20.5-60.0 [facility] Comment on above: Performed By: #### C BC ####[facility] Jqpxdfmofk7[address] [place], [place] [address]Dr. Donna Malone MANUAL DIFF REQ NO Normal [facility] Comment on above: Performed By: #### C BC ####[facility] Idzmnkgzho5864 [place] [phone]. Donna Malone MCH (RBC) [Entitic mass] 29.7 pg Normal 25.9-34.0 [facility] Comment on above: Performed By: #### C BC ####[facility] Xniuaumqqy7636 [place] [phone]. Donna Malone MCHC (RBC) [Mass/Vol] 32.6 g/dL Normal 29.9-35.2 [facility] Comment on above: Performed By: #### C BC ####[facility] Wnomqvkryq4036 [place] [phone]. Donna Malone MCV (RBC) [Entitic vol] 91.0 fL Normal 80.0-94.0 [facility] Comment on above: Performed By: #### C BC ####[facility] Iqiduylxiw1416[address] [place], [place] [address]Dr. Donna Faisal MONO # 0.5 103/ul Normal 0.3-0.8 [facility] Comment on above: Performed By: #### C BC ####[facility] Djsarodtlx6420 [place] [address]Dr. Donna Faisal Monocytes/100 WBC (Bld) 8.1 % Normal 1.7-12.0 [facility] Comment on above: Performed By: #### C BC ####[facility] Ysbtfbvodh[address] [place], [place] [id number]. Donna Malone NEUT # 3.5 103/ul Normal 1.4-6.5 [facility] Comment on above: Performed By: #### C BC ####[facility] Alxdfrsxph[address] [place], [place] [id number]. Donna Faisal Neutrophils/100 WBC (Bld) 54.6 % Normal 43.0-75.0 [facility] Comment on above: Performed By: #### C BC ####[facility] Xymrepllmj67[address] [place], [place] [id number]. Donna Malone Platelet mean volume (Bld) [Entitic vol] 12.0 fL Normal 9.5-13.5 [facility] Comment on above: Performed By: #### C BC ####[facility] Qxqmxuggnj9893 [place] [phone]. Rubyyvan Faisal PLT 152 103/ul Normal 150-450 [facility] Comment on above: Performed By: #### C BC ####[facility] Zxxounisov1926 [place] [phone]. Donna Malone RBC 4.01 106/ul Critically low 4.70-6.10 [facility] Comment on above: Performed By: #### C BC ####[facility] Lwdurtmyav8766 [place] [phone]. Rubyyvan Faisal WBC 6.4 103/ul Normal 4.0-11.0 [facility] Comment on above: Performed By: #### C BC ####[facility] Gitjpgygiq6817 [place] [address]Dr. Donna Malone DEPAKENE/VALPROICon 05-14-20 22 DEPAKENE 17.3 ug/ml Critically low 50.0-100.0 [facility] Comment on above: Performed By: #### V ALP ####[facility] Hxjixbgbve0993 [place] [address]Dr. Donna Malone POINT OF CARE GLUCOSEon Glucose [Mass/Vol] 89 mg/dL Normal 74-106 [facility] Comment on above: Performed By: #### P OCGLUC ####[facility] Qcqgdihtyn075[address] [place], [place] [address]DrElizabeth Malone PROF CHEM 8 (BAS METB)on Anion gap [Moles/Vol] 13.6 mmol/L Normal [facility] Comment on above: Performed By: #### B MP ####[facility] Qbfcahpews[address] [place], [place] [address]DrElizabeth Malone Calcium [Mass/Vol] 7.8 mg/dL Critically low 8.5-10.1 [facility] Comment on above: Performed By: #### B MP ####[facility] Jbwkeqntvn300[address] [place], [place] [address]DrElizabeth Malone Chloride [Moles/Vol] 112 mmol/L Critically high 98-107 [facility] Comment on above: Performed By: #### B MP ####[facility] Gwrztzgwrh7618 [place] [address]Dr. Rubyyvan Faisal CO2 [Moles/Vol] 22.5 mmol/L Normal 21.0-32.0 [facility] Comment on above: Performed By: #### B MP ####[facility] Luroxdrlsd7715[address] [place], [place] [address]Dr. Rubyyvan Faisal Creatinine [Mass/Vol] 1.01 mg/dL Normal 0.70-1.30 [facility] Comment on above: Performed By: #### B MP ####[facility] Setdivdlfi3894[address] [place], [place] [address]Dr. Donna Malone EGFR-AF LEBANESE >60 Normal >=60 [facility] Comment on above: Performed By: #### B MP ####[facility] Fnrucjxfti2734[address] [place], [place] [address]Dr. Donna Malone EGFR-NON AF LEBANESE >60 Normal >=60 [facility] Comment on above: Performed By: #### B MP ####[facility] Nmongjksbl1143[address] [place], [place] [address]Dr. Donna Malone Glucose [Mass/Vol] 84 mg/dL Normal 74-106 [facility] Comment on above: Performed By: #### B MP ####[facility] Zwvltxzinc27[address] [place], [place] [address]Dr. Donna Malone Potassium [Moles/Vol] 4.1 mmol/L Normal 3.5-5.1 [facility] Comment on above: Performed By: #### B MP ####[facility] Tbzkzehcaf5015[address] [place], [place] [address]Dr. Donna Malone Sodium [Moles/Vol] 144 mmol/L Normal 136-145 [facility] Comment on above: Performed By: #### B MP ####[facility] Ukuqyllihf9486[address] [place], [place] [address]Dr. Donna Malone Urea nitrogen [Mass/Vol] 21.0 mg/dL Critically high 7.0-18.0 [facility] Comment on above: Performed By: #### B MP ####[facility] Ntzonwyyqc4813 [place] [address]Dr. Donna Malone Urea nitrogen/Creatinine [Mass ratio] 20.8 mg/mg Normal [facility] Comment on above: Performed By: #### B MP ####[facility] Xooevunpow5065 [place] [address]Dr. Donna Malone TSHon 05-14-2022 TSH 1.086 uIU/mL Normal 0.358-3.74 0 [facility] Comment on above: Performed By: #### T SH ####[facility] Blkaedqnxb3003[address] [place], [place] [address]Dr. Donna Malone BLOOD GASES BTYon 05-13-[address] [facility] Comment on above: Performed By: #### A BG ####[facility] Yfgozoqbvc0755[address] [place], [place] [address]Dr. Donna Malone ALLENS TEST Positive [facility] Comment on above: Performed By: #### A BG ####[facility] Dghpzyrths3316[address] [place], [place] [address]Dr. Donna Malone Base excess Calc (Bld) [Moles/Vol] -2.5000 mmol/L Critically low -2.0-2.0 [facility] Comment on above: Performed By: #### A BG ####[facility] Ijugaqqsbe3752[address] [place], [place] [address]Dr. Donna Malone BIPAP PRESSURE Normal [facility] Comment on above: Performed By: #### A BG ####[facility] Qvshvppgam9975[address] [place], [place] [address]Dr. Donna Malone CPAP [facility] Comment on above: Performed By: #### A BG ####[facility] Dvjcksmiwg5075[address] [place], [place] [address]Dr. Donna Malone FIO2 Normal [facility] Comment on above: Performed By: #### A BG ####[facility] Boltyqaigy3862[address] [place], [place] [address]Dr. Donna Malone HCO3 (Bld) [Moles/Vol] 22.4 mmol/L Normal 22.0-26.0 [facility] Comment on above: Performed By: #### A BG ####[facility] Gshmzcaxks24[address] [place], [place] [address]Dr. Donna Malone LPM [facility] Comment on above: Performed By: #### A BG ####[facility] Fyzroxwkin9867[address] [place], [place] [address]Dr. Donna Malone MINUTE VOLUME Normal [facility] Comment on above: Performed By: #### A BG ####[facility] Mydzmywmft6289[address] [place], [place] [address]Dr. Donna Malone Oxygen (Bld) [Partial pressure] 77.6 mm[Hg] Critically low 80.0-100.0 [facility] Comment on above: Performed By: #### A BG ####[facility] Qmvfwiggwv3262[address] [place], [place] [address]Dr. Donna Malone Oxygen saturation in Blood 95.5 % Normal 95.0-100.0 [facility] Comment on above: Performed By: #### A BG ####[facility] Doeflvqvtf65[address] [place], [place] [address]Dr. Donna Malone PCO2 40.8 mmHg Normal 35.0-45.0 [facility] Comment on above: Performed By: #### A BG ####[facility] Gmgekiurqq[address] [place], [place] [address]Dr. Donna Malone PEEP [facility] Comment on above: Performed By: #### A BG ####[facility] Xybsgjyjxa50[address] [place], [place] [address]Dr. Donna Malone pH (Bld) 7.359 [pH] Normal 7.350-7.45 0 [facility] Comment on above: Performed By: #### A BG ####[facility] Bekfdgsvvh[address] [place], [place] [address]Dr. Donna Malone PIP [facility] Comment on above: Performed By: #### A BG ####[facility] Mhuwgxzqat8[address] [place], [place] [address]Dr. Donna Malone PS [facility] Comment on above: Performed By: #### A BG ####[facility] Rlahyilglt16[address] [place] [address]Dr. Donna Malone PUNCTURE SITE RR Normal [facility] Comment on above: Performed By: #### A BG ####[facility] Bohqnwxcbw3949 [place] [address]Dr. Donna Malone RATE Normal [facility] Comment on above: Performed By: #### A BG ####[facility] Afydhxjdef5440 [place] [address]Dr. Donna Malone VENT MODE Normal [facility] Comment on above: Performed By: #### A BG ####[facility] Nhrasskttg0188 [place] [address]Dr. Donna Malone VT [facility] Comment on above: Performed By: #### A BG ####[facility] Tmczobidqe7544 [place] [address]Dr. Donna Malone BNPon 05-13-2022 Natriuretic peptide B (Bld) [Mass/Vol] 156.0 pg/mL Normal <=900.0 [facility] Comment on above: Performed By: #### C MP, CMADM, BNP ####[facility] Gbbpeudwdp7339 [place] [address]Dr. Donna Malone CARDIAC MJ ADMITon 022 CK [Catalytic activity/Vol] 119 U/L Normal 39-308 [facility] Comment on above: Performed By: #### C MP, CMADM, BNP ####[facility] Eypqmqtrhp4073 [place] [address]Dr. Donna Malone CK.MB [Mass/Vol] 1.27 ng/mL Normal <=3.60 [facility] Comment on above: Performed By: #### C MP, CMADM, BNP ####[facility] Lmwxlmtwpw22[address] [place], [place] [address]Dr. Donna Malone HSTROP 7.9 pg/mL Normal 4.0-76.1 [facility] Comment on above: Result Comment: CUT- OFF POINTS HAVE BEEN ESTABLISHED BASED ON THE FOURTH UNIVERSAL DEFINITIONS OF MYOCARDIALINFARCTION. THE UPPER REFERENCE LIMIT (URL) OF TROPONIN, DEFINED THE 99TH PERCENTILE OFcTnI DISTRIBUTION IN A REFERENCE POPULATION, HAS BEEN CONFIRMED THE DECISION THRESHOLDFOR ND DIAGNOSIS. Performed By: #### C MP, CMADM, BNP ####[facility] Hjmarkczrb8202 [place] [address]Dr. Donna Malone BINDU 111 ng/mL Critically high 16-96 [facility] Comment on above: Performed By: #### C MP, CMADM, BNP ####[facility] Supvlfruqz1303 [place] [address]Dr. Donna Malone CBC AUTO DIFFon 05-13-2022 BASO # 0.1 103/ul Normal 0.0-0.1 [facility] Comment on above: Performed By: #### C BC ####[facility] Qvadagbyrc[address] [place], [place] [address]Dr. Donna Malone Basophils/100 WBC (Bld) 0.8 % Normal 0.2-2.0 [facility] Comment on above: Performed By: #### C BC ####[facility] Ggztcbfqqf[address] [place], [place] [address]Dr. Donna Malone EO # 0.1 103/ul Normal 0.0-0.7 [facility] Comment on above: Performed By: #### C BC ####[facility] Dhcgrkqlqf87[address] [place], [place] [address]Dr. Donna Malone Eosinophils/100 WBC (Bld) 1.8 % Normal 0.9-7.0 [facility] Comment on above: Performed By: #### C BC ####[facility] Fuqrzildgu7[address] [place], [place] [address]Dr. Rubyyvan Malone Erythrocyte distribution width (RBC) [Ratio] 14.7 % Normal 11.0-15.0 [facility] Comment on above: Performed By: #### C BC ####[facility] [address]azyjvnorr39[address] [place], [place] [address]Dr. Donna Malone Hematocrit (Bld) [Volume fraction] 38.2 % Critically low 42.0-54.0 [facility] Comment on above: Performed By: #### C BC ####[facility] Pdoktcfzqg0280 [place] [id number]. Donna Malone Hemoglobin (Bld) [Mass/Vol] 12.7 g/dL Critically low 14.0-18.0 [facility] Comment on above: Performed By: #### C BC ####[facility] Pzwepwlytu4[address] [place] [id number]. Donna Malone IG # 0.03 10e3/ul Normal 0.00-0.03 [facility] Comment on above: Performed By: #### C BC ####[facility] Qfelyprtxi3798 [place] [address]Dr. Donna Malone IG % 0.4 % Normal 0.0-0.5 [facility] Comment on above: Performed By: #### C BC ####[facility] [facility] [address]abp[address] [place], [place] [address]Dr. Donna Malone LYMPH # 1.6 103/ul Normal 1.2-3.8 [facility] Comment on above: Performed By: #### C BC ####[facility] Zcturermpa[address] [place], [place] [address]Dr. Donna Malone Lymphocytes/100 WBC (Bld) 22.8 % Normal 20.5-60.0 [facility] Comment on above: Performed By: #### C BC ####[facility] Nwildlouez[address] [place], [place] [address]Dr. Donna Malone MANUAL DIFF REQ NO Normal [facility] Comment on above: Performed By: #### C BC ####[facility] Memgyblgap[address] [place], [place] [address]Dr. Donna Malone MCH (RBC) [Entitic mass] 30.2 pg Normal 25.9-34.0 [facility] Comment on above: Performed By: #### C BC ####[facility] Tgzgfpyqcu[address] [place], [place] [address]Dr. Donna Malone MCHC (RBC) [Mass/Vol] 33.2 g/dL Normal 29.9-35.2 [facility] Comment on above: Performed By: #### C BC ####[facility] [address] [place] [id number]. Donna Malone MCV (RBC) [Entitic vol] 91.0 fL Normal 80.0-94.0 [facility] Comment on above: Performed By: #### C BC ####[facility] Qawskfsquv70[address] [place] [id number]. Donna Malone MONO # 0.7 103/ul Normal 0.3-0.8 [facility] Comment on above: Performed By: #### C BC ####[facility] Bypxpqozlb1350 [place] [id number]. Donna Malone Monocytes/100 WBC (Bld) 9.1 % Normal 1.7-12.0 [facility] Comment on above: Performed By: #### C BC ####[facility] Scsvhkfoui1378 [place] [id number]. Donna Malone NEUT # 4.7 103/ul Normal 1.4-6.5 [facility] Comment on above: Performed By: #### C BC ####[facility] Eugdolejuj4715 [place] [id number]. Donna Malone Neutrophils/100 WBC (Bld) 65.1 % Normal 43.0-75.0 [facility] Comment on above: Performed By: #### C BC ####[facility] Xweviiutpt7636 [place] [id number]. Donna Malnoe Platelet mean volume (Bld) [Entitic vol] 11.8 fL Normal 9.5-13.5 [facility] Comment on above: Performed By: #### C BC ####[facility] Ovkzckhbbr2914 [place] [id number]. Donna Malone PLT 179 103/ul Normal 150-450 [facility] Comment on above: Performed By: #### C BC ####[facility] Ilbkjlquys9574 [place] [id number]. Donna Malone RBC 4.20 106/ul Critically low 4.70-6.10 [facility] Comment on above: Performed By: #### C BC ####[facility] Apkf[address]xydat[address] [place], [place] [address]Qj. Donna Malone WBC 7.2 103/ul Normal 4.0-11.0 [facility] Comment on above: Performed By: #### C BC ####[facility] Fzaxicikxx[address] [place], [place] [address]Gs. Donna Malone CT STROKE HEAD WOon 05-13-[address] STROKE HEAD WO Normal [facility] Covid-19 PCR (CVDTB)on SARS-CoV-2 (COVID-19) RNA JOSÉ MIGUEL+probe Ql (Unsp spec) Not detected Normal NOT DETECTED [facility] Comment on above: Result Comment: When [...] for this test is supported by the [employer] of Health and Human Service's declaration that [...] be used). Performed By: #### C VDTBH ####[facility] [address] [place], [place] [address]We. Donna Malone DEPAKENE/VALPROICon 05-13-20 22 DEPAKENE 16.9 ug/ml Critically low 50.0-100.0 [facility] Comment on above: Performed By: #### V ALP ####[facility] Bkdolanuqo66[address] [place], [place] [address]Mt. Donna Malone DRUG SCREEN RAPID (URINE)on 05-13-2022 AMP Negative Normal NEGATIVE [facility] Comment on above: Performed By: #### D RUGRPD ####[facility] Hfcjrktbgs43[address] [place] [id number]. Donna Malone BAR Negative Normal NEGATIVE [facility] Comment on above: Performed By: #### D RUGRPD ####[facility] Gylndtfpxh4035 [place] [id number]. Donna Malone BUP Negative Normal NEGATIVE [facility] Comment on above: Performed By: #### D RUGRPD ####[facility] Risjhuzbzl5849 [place] [phone]. Donna Malone BZO Positive Abnormal NEGATIVE [facility] Comment on above: Performed By: #### D RUGRPD ####[facility] Wkvldulglm[address] [place], [place] [address]Dr. Donna Malone EVONNE Positive Abnormal NEGATIVE The [facility] Comment on above: Performed By: #### D RUGRPD ####[facility] Lnjdamiidq57[address] [place], [place] [address]Dr. Donna Malone CUT-OFFS SEE BELOW Normal [facility] Comment on above: Result Comment: AMP (Amphetamine): 500ng/mL, BAR (Barbituates): 200 ng/mL, BZO (Benzodiazepines): 150 ng/mL, BUP (Buprenorphine): 10 ng/mL, EVONNE (Cocaine): 150 ng/mL, mAMP (Methamphetamine): 500 ng/mL, MTD (Methadone): 200 ng/mL, OPI (Opiates): 100 ng/mL, OXY (Oxycodone): 100 ng/mL, PCP (Phencyclidine): 25 ng/mL, PPX (Propoxyphene): 300 ng/mL, THC (Cannabinoids): 50 ng/mL, TCA (Trycyclic Antidepressants): 300 ng/mL Performed By: #### D RUGRPD ####[facility] Mbitvoublo[address] [place], [place] [address]Dr. Donna Malone DRUG CUT HEADER DRUG CLASS TEST SYST EM CUT-OFF CONCENTRATIONS ARE FOLLOWS: Normal [facility] Comment on above: Performed By: #### D RUGRPD ####[facility] Z[address]aalzopi[address] [place], [place] [address]Dr. Donna Malone mAMP Negative Normal NEGATIVE [facility] Comment on above: Performed By: #### D RUGRPD ####[facility] Oksuutblbk3[address] [place] [address]Dr. Donna Malone MTD Negative Normal NEGATIVE [facility] Comment on above: Performed By: #### D RUGRPD ####[facility] Volcqdpapd3[address] [place] [address]Dr. Donna Malone OPI Positive Abnormal NEGATIVE [facility] Comment on above: Performed By: #### D RUGRPD ####[facility] Dtwrxnutvg7641 [place] [address]Dr. Rubylan Malone OXY Negative Normal NEGATIVE [facility] Comment on above: Performed By: #### D RUGRPD ####[facility] Hsgjwvejcx39[address] [place], [place] [address]Dr. Donna Malone PCP Negative Normal NEGATIVE [facility] Comment on above: Performed By: #### D RUGRPD ####[facility] Rfbswfefte[address] [place], [place] [address]Dr. Donna Malone PPX Negative Normal NEGATIVE [facility] Comment on above: Performed By: #### D RUGRPD ####[facility] Urhzgsicht[address] [place], [place] [address]Dr. Donna Malone TCA Positive Abnormal NEGATIVE The [facility] Comment on above: Performed By: #### D RUGRPD ####[facility] Hywprdwwpk[address] [place], [place] [address]Dr. Donna Malone THC Negative Normal NEGATIVE The [facility] Comment on above: Performed By: #### D RUGRPD ####[facility] Rxitszapsp[address] [place], [place] [address]Dr. Donna Malone ER URINE PROFILEon 2 Bilirubin Ql (U) MODERATE Abnormal NEGATIVE [facility] Comment on above: Performed By: #### E RUR ####[facility] Qcweooruvg[address] [place], [place] [address]Dr. Donna Malone Clarity (U) SL CLOUDY Abnormal CLEAR [facility] Comment on above: Performed By: #### E RUR ####[facility] Mnpjnmrsab[address] [place], [place] [address]Dr. Donna Malone Color (U) DK. YELLOW Normal YELLOW [facility] Comment on above: Performed By: #### E RUR ####[facility] Qsshsnxvmp[address] [place], [place] [address]Dr. Donna Malone ERUAHD A micrscopic examina tion will be performed if indicated. Normal [facility] Comment on above: Performed By: #### E RUR ####[facility] Spljyrhqfi14[address] [place], [place] [address]Dr. Donna Malone Glucose Ql (U) 250 mg/dl Abnormal NEGATIVE [facility] Comment on above: Performed By: #### E RUR ####[facility] Llyjykqxcp[address] [place], [place] [address]Dr. Donna Malone Hemoglobin Ql (U) Negative Normal NEGATIVE [facility] Comment on above: Performed By: #### E RUR ####[facility] Zqthzjccpz4[address] [place], [place] [address]Dr. Donna Malone Ketones Ql (U) TRACE Abnormal NEGATIVE [facility] Comment on above: Performed By: #### E RUR ####[facility] Qxgsahvghw[address] [place], [place] [address]Dr. Donna Malone LEUKOCYTES Negative Normal NEGATIVE The [facility] Comment on above: Performed By: #### E RUR ####[facility] Fhvzichqgs[address] [place], [place] [address]Dr. Donna Malone Nitrite Ql (U) Negative Normal NEGATIVE [facility] Comment on above: Performed By: #### E RUR ####[facility] Vjmqqqtvie[address] [place], [place] [address]Dr. Donna Malone pH (U) 5.5 [pH] Normal 5-9 [facility] Comment on above: Performed By: #### E RUR ####[facility] Csyfczyloo[address] [place], [place] [address]Dr. Donna Malone SPEC GRAVITY >=1.030 Abnormal 1.005-<=1. 025 [facility] Comment on above: Performed By: #### E RUR ####[facility] Ryzoskfilx0[address] [place], [place] [address]Dr. Donna Malone UA PROTEIN TRACE Normal NEGATIVE/ TRACE [facility] Comment on above: Performed By: #### E RUR ####[facility] Sbbsdkdnuj[address] [place], [place] [address]Dr. Donna Malone UR MICRO IND NOT INDICATED Normal [facility] Comment on above: Performed By: #### E RUR ####[facility] X[address]psjgkabm[address] [place], [place] [address]Dr. Donna Malone Urobilinogen Qn (U) 1.0 {Jermain'U}/dL Normal 0.2 - 1. 0 [facility] Comment on above: Performed By: #### E RUR ####[facility] Adjnhwsolg[address] [place], [place] [address]Dr. Donna Malone ETHANOL (BLD ALC)on 05-13-20 22 ALC NOTE NOTE: 80 mg/dl is th legal limit for a blood alcohol level Normal [facility] Comment on above: Performed By: #### E TH ####[facility] Jyffjwrmhd[address] [place], [place] [address]Dr. Donna Malone Ethanol [Mass/Vol] mg/dL Normal [facility] Comment on above: Performed By: #### E TH ####[facility] [address] [place] [address]. Donna Malone LACTATE/LACTIC ACIDon 2021 Lactate [Moles/Vol] 1.7 mmol/L Normal 0.4-1.9 [facility] Comment on above: Performed By: #### L ACT ####[facility] Cxjrjkszea[address] [place], [place] [address]Dr. Donna Malone POINT OF CARE GLUCOSEon Glucose [Mass/Vol] 99 mg/dL Normal 74-106 [facility] Comment on above: Performed By: #### P OCGLUC ####[facility] Rwftvegply[address] [place], [place] [address]Dr. Rubyyvan Malone PROF 14(COMP METB)on 022 Albumin [Mass/Vol] 3.1 g/dL Critically low 3.4-5.0 Th [facility] Comment on above: Performed By: #### C MP, CMADM, BNP ####[facility] K[address]ffyivo[address] [place] [address]Dr. Donna Faisal Albumin/Globulin [Mass ratio] 1.0 {ratio} Normal [facility] Comment on above: Performed By: #### C MP, CMADM, BNP ####[facility] Ftvszmblig59[address] [place] [address]Dr. Donna Faisal ALP [Catalytic activity/Vol] 37 U/L Critically low 46-116 [facility] Comment on above: Performed By: #### C MP, CMADM, BNP ####[facility] Wnxvczhqmv0530 [place] [address]Dr. Donna Malone ALT [Catalytic activity/Vol] 14 U/L Critically low 16-63 [facility] Comment on above: Performed By: #### C MP, CMADM, BNP ####[facility] Lbfiiuiwwj[address] [place], [place] [address]Dr. Donna Malone Anion gap [Moles/Vol] 12.3 mmol/L Normal [facility] Comment on above: Performed By: #### C MP, CMADM, BNP ####[facility] Devzooteiq13[address] [place], [place] [address]Dr. Rubyyvan Malone AST [Catalytic activity/Vol] 12 U/L Critically low 15-37 [facility] Comment on above: Performed By: #### C MP, CMADM, BNP ####[facility] Vcykzdpbtq4644 [place] [address]Dr. Donna Malone Bilirubin [Mass/Vol] 0.4 mg/dL Normal 0.2-1.0 [facility] Comment on above: Performed By: #### C MP, CMADM, BNP ####[facility] [address]hrvxfu[address] [place], [place] [address]Dr. Donna Malone Calcium [Mass/Vol] 7.8 mg/dL Critically low 8.5-10.1 [facility] Comment on above: Performed By: #### C MP, CMADM, BNP ####[facility] Ouwdpcqjnq[address] [place], [place] [address]Dr. Donna Malone Chloride [Moles/Vol] 108 mmol/L Critically high 98-107 [facility] Comment on above: Performed By: #### C MP, CMADM, BNP ####[facility] Otevgafnpk5280 [place] [address]Dr. Donna Malone CO2 [Moles/Vol] 24.8 mmol/L Normal 21.0-32.0 [facility] Comment on above: Performed By: #### C MP, CMADM, BNP ####[facility] Lwjmzmhkle8289 [place] [address]Dr. Donna Malone Creatinine [Mass/Vol] 1.83 mg/dL Critically high 0.70-1.30 [facility] Comment on above: Performed By: #### C MP, CMADM, BNP ####[facility] Negsjnzhoe[address] [place], [place] [address]Dr. Donna Malone EGFR-AF LEBANESE 45 mL/min/1.73m2 Critically low >=60 [facility] Comment on above: Performed By: #### C MP, CMADM, BNP ####[facility] Ofgpmbruhg[address] [place], [place] [address]Dr. Donna Malone EGFR-NON AF LEBANESE 37 mL/min/1.73m2 Critically low >=60 [facility] Comment on above: Performed By: #### C MP, CMADM, BNP ####[facility] Ycpvusqaja[address] [place], [place] [address]Dr. Donna Malone Globulin (S) [Mass/Vol] 3.2 g/dL Normal [facility] Comment on above: Performed By: #### C MP, CMADM, BNP ####[facility] Dxkxzafozo3871 [place] [address]Dr. Donna Malone Glucose [Mass/Vol] 202 mg/dL Critically high 74-106 [facility] Comment on above: Performed By: #### C MP, CMADM, BNP ####[facility] Ybxjfutmax[address] [place], [place] [address]Dr. Donna Malone Potassium [Moles/Vol] 4.1 mmol/L Normal 3.5-5.1 [facility] Comment on above: Performed By: #### C MP, CMADM, BNP ####[facility] Itgodiiwuh3601 [place] [address]Dr. Donna Malone Protein [Mass/Vol] 6.3 g/dL Critically low 6.4-8.2 Th e [facility] Comment on above: Performed By: #### C MP, CMADM, BNP ####[facility] Pcmvkwarok1453 [place] [address]Dr. Donna Malone Sodium [Moles/Vol] 141 mmol/L Normal 136-145 [facility] Comment on above: Performed By: #### C MP, CMADM, BNP ####[facility] Sttlengtma[address]26 [place] [address]Dr. Donna Malone Urea nitrogen [Mass/Vol] 32.0 mg/dL Critically high 7.0-18.0 [facility] Comment on above: Performed By: #### C MP, CMADM, BNP ####[facility] Knirhsooem[address] [place], [place] [address]Dr. Donna Malone Urea nitrogen/Creatinine [Mass ratio] 17.5 mg/mg Normal [facility] Comment on above: Performed By: #### C MP, CMADM, BNP ####[facility] Yebuuuxpnc[address] [place], [place] [address]Dr. Donna Malone PROTIMEon 05-13-2022 INR Coag (PPP) [Relative time] 1.04 {INR} Normal [facility] Comment on above: Performed By: #### P T, PTT ####[facility] Lmfqpdesva[address] [place], [place] [address]Dr. Donna Malone INR GUIDELINES SEE BELOW Normal [facility] Comment on above: Result Comment: FLORESITA RED INR: 2.0 - 3.0 CONDITIONS NOT LISTED BELOW 2.5 - 3.5 FOR PROSTHETIC HEART VALVE REPLACEMENT 2.5 - 3.5 RECURRENT THROMBOSIS Performed By: #### P T, PTT ####[facility] Tcieluxiux[address] [place], [place] [address]Dr. Donna Malone PT Coag (PPP) [Time] 11.2 s Normal 9.0-11.6 [facility] Comment on above: Performed By: #### P T, PTT ####[facility] [address] [place], [place] [address]Gh. Donna Malone PTTon 05-13-2022 aPTT Coag (Bld) [Time] 27.5 s Normal 22.3-36.2 Th e [facility] Comment on above: Performed By: #### P T, PTT ####[facility] [address] [place], [place] [address]Sb. Donna Malone XR CHEST 1 Von 05-13-2022 XR CHEST 1 V Normal [facility] Ambulatory Visit Summaryon 0 10-03-2021 Ambulatory [...] physician if questions or concerns acetaminophen acetaminophen-hydrocodone ([place] 5/325 Tab) amlodipine (amLODIPine 5 mg Tab) [...] [facility] [address], [place] [address]- Medications What How Much When Instructions New ciprofloxacin (Cipro 500 mg Tab) 1 Tablets By Mouth Every day Take 1 tablet the day before the procedure and 1 tablet after the procedure Pickup at [facility] Unchanged acetaminophen 650 Milligram Every 4 hours Contact prescribing physician if questions or concerns Unchanged acetaminophen-hydrocodone ([place] 5/ 325 Tab) 1 Tablets By Mouth [...] physician if questions or concerns Pharmacy Information [facility]: [address] [place] [id number] [phone] (more content not included)... Normal [facility] Ambulatory Visit Summary TAYLOR MCCLELLAN [...] physician if questions or concerns acetaminophen acetaminophen-hydrocodone ([place] 5/325 Tab) amlodipine (amLODIPine 5 mg Tab) [...] Cysto Where: [facility] [address], [facility] [place] [address]- Medications What How Much When Instructions New ciprofloxacin (Cipro 500 mg Tab) 1 Tablets By Mouth Every day Take 1 tablet the day before the procedure and 1 tablet after the procedure Pickup at [facility] Unchanged acetaminophen 650 Milligram Every 4 hours Contact prescribing physician if questions or concerns Unchanged acetaminophen-hydrocodone ([place] 5/ 325 Tab) 1 Tablets By Mouth [...] physician if questions or concerns Pharmacy Information [facility]: [address] [place], [place] [id number] [phone] (more content not included)... Normal [facility] Care Home Recordson 10-03 Care Home Records [id number] Normal [facility] Patient Educationon 10-03-19 Patient Education [...] Follow these instructions at home: ? Take wlgp-aca-jyualcg and prescription medicines only as told by [...] You d (more content not included)... Normal [facility] Urology Office/Clinic Noteon 10-03-2021 Urology Office/Clinic Note Chief Complaint This is a 66 year old male in the [place] [facility] on 09/14/21. This patient has a [...] UroLift 10/30/18. Pt. was seen in the [facility] ER on 09/14/21 due to [...] recently. Family was in the hospital at [place] where he had severe weakness. A Galindo [...] in 2019. Patient was in [facility] 09/14/21 due to weakness and acute kidney [...] dribbling) moderate, (more content not included)... Normal [facility] Comment on above: Result Comment: Elec tronically Signed By: Sharad Grossman MD, Lisandro Espinal\.br\Date and Time Signed: 10/03/21 12:37 EST\.br\Electronically Co-Signed By: Lisandra Arias\.br\Date and Time Co-Signed: 10/03/21 12:32 EST APTTon 10-13-2019 aPTT Coag (Bld) [Time] 34.9 s Normal 25.0-35.[address] [facility] Comment on above: Result Comment: ALL [...] THIS PURPOSE. Performed By: #### 5 6101, [address] #### [address] CREATININE BLOODon 0 Creatinine [Mass/Vol] 1.07 mg/dL Normal 0.70-1.[address] [facility] Comment on above: Performed By: #### 2 5656 #### [place] [address], [facility] Creatinine [Mass/Vol] mg/dL Normal >[address] [facility] Comment on above: Performed By: #### 2 5656 #### [address] LUMBAR SPINE W CONTRASTon 10-13-2019 CT LUMBAR SPINE W CONTRAST [facility] Department of Radiology [address] [place] [id number] Patient Name: TAYLOR MCCLELLAN : 1955 Sex: M Age: Race: White Pt. Location: 84 Patient Status: O Ordered Date: 09/11/2019 2:50:00 PM Completed Date: 10/13/2019 11:37 AM Requesting Provider: JASEN HOWARD Attending Provider: JASEN HOWARD Report Copy To: LUI BRYSON Signs & Symptoms: M51.36 Other intervertebral disc degeneration, lumbar region I10 History: [place] Need Saturday appointment call [facility] [phone] [facility] auth# [id number] 09/16/19-10/15/19 cpt code 10320 *mla Comments: Exam: CT LUMBAR SPINE W [...] achievable Electronically signed: Fredy Salmeron. Transcribed by: [email or web address], User Resident: Electronically Signed by: FREDY SALMERON @ 10/13/2019 02:08 PM Normal [address] [facility] LUMBAR MYELOGRAMon [address] [facility] Department of Radiology [address] [place] [phone] Patient Name: TAYLOR MCCLELLAN : 1955 [...] risks are acceptable. Consent was obtained. Timeout: [place] protocol timeout verification performed. PROCEDURE: Estimated blood [...] reports Electronically signed: Fredy Salmeron. Transcribed by: [email or web address], User Resident: KRISTINE BALLARD Electronically Signed by: FREDY FAVIOLA @ 10/13/2019 06:58 PM I personally read this/these film(s) with this resident Normal [facility] Comment on above: Order Comment: , , = ========= , Ordering Provider - JASEN HOWARD MD , PROTHROMBIN TIMEon 0 INR Coag (PPP) [Relative time] 1.05 {INR} Normal 0.91-1.[address] [facility] Comment on above: Result Comment: ACCC [...] RANGE. CHEST 1995;108:[id number]. Performed By: #### [id number] #### [facility] [address] LENNIE MCCOY. [address] PT Coag (PPP) [Time] 13.7 s Normal 12.3-14.[address] [facility] Comment on above: Result Comment: ALL RESULTS MUST BE INTERPRETED WITH RESPECT TO BLOOD DRAWING ARTIFACT OR DILUTION ERROR OF ANTICOAGULANT AT THE TIME OF SAMPLING. Performed By: #### [id number] #### [facility] [address] [place] [address], [facility] 019 HBV surface Ab Ql (S) Non reactive F [facility] Work Phone: Comment on above: Non Reactive: Incons istent with immunity, less than 10 mIU/mL Reactive: Consistent with immunity, greater than 9.9 mIU/mL HBV surface Ag IA Ql Negative [facility] Work Phone: Comment on above: Performed at: [place] [id number] Hed[place] Review Nurse: Arnold Cabral PhD, Phone: [phone] HCV Ab Signal/Cutoff IA RelACnc 0.1 s/co ratio [facility] Work Phone: Hepatitis C Antibody Comment See comment [facility] Work Phone: Comment on above: Non reactive HCV ant ibody screen is consistent with no HCV infection, unless recent infection is suspected or other evidence exists to indicate HCV infection. HIV 1+2 Ab IA Ql Nonreactive [facility] Work Phone: Laboratory Studieson 018 Glucose mass conc Glu2: cleaned meter [facility] Work Phone: Glucose mass conc 121 mg/dL [facility] Work Phone: Comment on above: Random Glucose Refer ence Range is dependent on time and content of last meal. Glucose of more than 200 mg/dL in a nonstressed, ambulatory subject supports the diagnosis of Diabetes Mellitus. Calcium mass conc 8.7 mg/dL 8.2-10.2 [facility] Work Phone: Chloride molar conc 102 mmol/L 95-114 [facility] Work Phone: CO2 molar conc 27.5 mmol/L 22.0-30.0 [facility] Work Phone: Creatinine mass conc 1.08 mg/dL 0.64-1.27 [facility] Work Phone: GFR/1.73 sq M predicted among blacks MDRD vol rate/area (S/P/Bld) mL/min/{1.73_m2} [facility] Work Phone: Comment on above: GFR estimated refere nce range: According to KDOQI guidelines, <60 ml/min/1.73m2 is sufficient to diagnose a patient with chronic kidney disease. GFR/1.73 sq M predicted among non-blacks MDRD vol rate/area (S/P/Bld) mL/min/{1.73_m2} [facility] Work Phone: Glucose mass conc 86 mg/dL 70-100 [facility] Work Phone: Comment on above: ADA recommended refe rence range Random Glucose Reference Range is dependent on time and content of last meal. Glucose of more than 200 mg/dL in a nonstressed, ambulatory subject supports the diagnosis of Diabetes Mellitus. Pharmacy Creatinine Clearance (Chem 88.1842 [facility] Work Phone: Potassium molar conc 3.5 mmol/L 3.5-5.1 [facility] Work Phone: Sodium molar conc 139 mmol/L 136-146 [facility] Work Phone: Urea nitrogen mass conc 10 mg/dL 9-23 [facility] Work Phone: Laboratory Studieson 018 Basophils #/vol (Bld) 0.1 10*3/uL 0.0-0.2 [facility] Work Phone: Basophils/100 WBC (Bld) 1.0 % [facility] Work Phone: Eosinophils #/vol (Bld) 0.2 10*3/uL 0.0-0.45 [facility] Work Phone: Eosinophils/100 WBC (Bld) 2.8 % [facility] Work Phone: Erythrocyte distribution width Ratio (RBC) 13.9 % 12.0-14.8 [facility] Work Phone: Hematocrit Volume Fraction (Bld) 36.3 % Low 38.8-50.0 [facility] Work Phone: Hemoglobin mass conc (Bld) 12.5 g/dL Low 13.0-17.0 [facility] Work Phone: Lymphocytes #/vol (Bld) 1.6 10*3/uL 1.00-4.8 [facility] Work Phone: Lymphocytes/100 WBC (Bld) 23.7 % [facility] Work Phone: MCH Entitic mass (RBC) 28.9 pg 27.5-35.2 [facility] Work Phone: MCHC mass conc (RBC) 34.3 g/dL 32.5-35.6 [facility] Work Phone: MCV Entitic volume (RBC) 84.4 fL 83.5-101 [facility] Work Phone: Monocytes #/vol (Bld) 0.4 10*3/uL 0.0-0.8 [facility] Work Phone: Monocytes/100 WBC (Bld) 6.7 % [facility] Work Phone: Neutrophils #/vol (Bld) 4.4 10*3/uL 1.8-7.7 [facility] Work Phone: Neutrophils/100 WBC (Bld) 65.8 % [facility] Work Phone: Platelet mean volume Entitic volume (Bld) 10.3 fL High 6.6-10.1 [facility] Work Phone: Platelets #/vol (Bld) 199 10*3/uL 150-450 [facility] Work Phone: RBC #/vol (Bld) 4.31 10*6/uL 3.90-5.60 [facility] Work Phone: WBC #/vol (Bld) 6.6 10*3/uL 4.1-10.5 [facility] Work Phone: Laboratory Studieson 018 Appearance Nom (U) Slightly cloudy Abnormal F [facility] Work Phone: Bacteria Auto Ql (U) None seen [facility] Work Phone: Bilirubin Ql (U) Negative [facility] Work Phone: Color Nom (U) Yellow [facility] Work Phone: Creatinine mass conc (U) 143.4 mg/dL [facility] Work Phone: Comment on above: No reference range e stablished Epithelial cells Auto #/area (Urine sed) Rare /HPF [facility] Work Phone: Glucose Automated test strip mass conc (U) Normal mg/dL [facility] Work Phone: Hemoglobin Automated test strip Ql (U) 1+ High [facility] Work Phone: Ketones mass conc (U) 1+ High [facility] Work Phone: Leukocyte esterase Automated test strip Ql (U) Negative [facility] Work Phone: Nitrite Automated test strip Ql (U) Negative [facility] Work Phone: pH (U) 5.5 [pH] 5.0-9.0 [facility] Work Phone: pH (U) [pH] 1.001-1.03 0 [facility] Work Phone: Protein mass conc (U) Negative [facility] Work Phone: RBC Auto #/area (Urine sed) 1-2 /HPF [facility] Work Phone: Sodium molar conc (U) 144.0 mmol/L F [facility] Work Phone: Comment on above: No reference range e stablished Urate crystals LM.HPF #/area (Urine sed) 3 /[HPF] [facility] Work Phone: Urobilinogen mass conc (U) Normal mg/dL [facility] Work Phone: WBC Auto #/area (Urine sed) None seen /HPF [facility] Work Phone: Albumin mass conc 2.7 g/dL Low 3.2-5.5 [facility] Work Phone: Albumin/Globulin mass ratio 0.8 {ratio} [facility] Work Phone: ALP enzyme act/vol 39 U/L 32-92 [facility] Work Phone: ALT No additional P-5'-P enzyme act/vol 14 U/L 10-60 [facility] Work Phone: AST enzyme act/vol 25 U/L 10-42 [facility] Work Phone: Bilirubin mass conc 0.6 mg/dL 0.3-1.2 [facility] Work Phone: Globulin mass conc (S) 3.6 g/dL [facility] Work Phone: Protein mass conc 6.3 g/dL 6.1-7.9 [facility] Work Phone: Laboratory Studieson 018 T3 free mass conc 3.28 pg/mL 2.50-3.90 [facility] Work Phone: T4 free mass conc 0.95 ng/dL 0.61-1.12 [facility] Work Phone: Amphetamines Ql (U) Negative [facility] Work Phone: Barbiturates Ql (U) Negative [facility] Work Phone: Benzodiazepines Ql (U) Positive High [facility] Work Phone: Cannabinoids Screen Ql (U) Negative [facility] Work Phone: Comment on above: These are unconfirme d results and should not be used for legal purposes. Drug Cut-Off Concentration: AMPH 1000 ng/mL EWA 200 ng/mL JOHN 200 ng/mL COCM 300 ng/mL OP 300 ng/mL PCP 25 ng/mL THC 20 ng/mL Cocaine Ql (U) Negative [facility] Work Phone: Opiates Ql (U) Positive High [facility] Work Phone: Phencyclidine Ql (U) Negative [facility] Work Phone: Ammonia mass conc (Unsp spec) 20 umol/L 11-35 [facility] Work Phone: Bilirubin.direct mass conc 0.2 mg/dL 0.0-0.4 [facility] Work Phone: Bilirubin.indirect mass conc 0.8 mg/dL [facility] Work Phone: Cobalamin (Vitamin B12) mass conc 365 pg/mL 180-914 [facility] Work Phone: Folate mass conc 12.4 ng/mL [facility] Work Phone: Comment on above: Folate reference ran ge: >5.9 ng/ml The WHO technical consultation on folate and vitamin b12 deficiencies has determined that folate concentrations less than 4 ng/ml are considered deficient. Magnesium molar conc (Unsp spec) 1.7 mg/dL 1.6-2.6 [facility] Work Phone: Thyrotropin Qn 0.20 uIU/mL Low 0.45-5.33 [facility] Work Phone: Comment on above: Revised TSH Assay This assay is standardized to the World Health Organization International Standard for human TSH. Please note Reference Intervals have changed. Laboratory Studieson 018 Casts LM Nom (Urine sed) N/A [facility] Work Phone: Epithelial cells.renal LM.HPF #/area (Urine sed) Rare /HPF [facility] Work Phone: Hyaline casts Auto #/vol (U) 20-49 /LPF High [facility] Work Phone: Lactate molar conc (U) 0.9 mmol/L [facility] Work Phone: CK enzyme act/vol 107 U/L 22-269 [facility] Work Phone: Phosphate mass conc 5.0 mg/dL High 2.5-4.6 [facility] Work Phone: Laboratory Studieson 017 Glucose mass conc 122 mg/dL [facility] Work Phone: Comment on above: RANDOM GLUCOSE REFER ENCE RANGE IS DEPENDENT ON TIME AND CONTENT OF LAST MEAL.GLUCOSE OF MORE THAN 200MG/DL IN A NONSTRESSED,AMBULATORY SUBJECT SUPPORTS THE DIAGNOSIS OF DIABETES MELLITUS. Laboratory Studieson 017 Basophils #/vol (Bld) 0.1 10*3/uL 0.0-0.2 [facility] Work Phone: Basophils/100 WBC (Bld) 0.9 % [facility] Work Phone: Calcium mass conc 8.6 mg/dL 8.2-10.2 [facility] Work Phone: Chloride molar conc 109 mmol/L 95-114 [facility] Work Phone: CK enzyme act/vol 355 U/L High 22-269 [facility] Work Phone: CO2 molar conc 19.5 mmol/L Low 22.0-30.0 [facility] Work Phone: Creatinine mass conc 0.99 mg/dL 0.64-1.27 [facility] Work Phone: Eosinophils #/vol (Bld) 0.20 10*3/uL 0.0-0.45 [facility] Work Phone: Eosinophils/100 WBC (Bld) 3.3 % [facility] Work Phone: Erythrocyte distribution width Ratio (RBC) 13.8 % 12.0-14.8 [facility] Work Phone: Estimated GFR (Non- > 60 [facility] Work Phone: GFR/1.73 sq M.predicted MDRD (S/P/Bld) [Vol rate/Area] mL/min/{1.73_m2} [facility] Comment on above: GFR estimated refere nce range: According to KDOQI guidelines, <60 ml/min/1.73m2 is sufficient to diagnose a patient with chronic kidney disease. GFR/1.73 sq M.predicted MDRD vol rate/area mL/min/{1.73_m2} [facility] Work Phone: Comment on above: GFR estimated refere nce range: According to KDOQI guidelines, <60 ml/min/1.73m2 is sufficient to diagnose a patient with chronic kidney disease. Glucose mass conc 94 mg/dL 70-100 [facility] Work Phone: Comment on above: ADA RECOMMENDED REFE RENCE RANGE Hematocrit Volume Fraction (Bld) 41.5 % 38.8-50.0 [facility] Work Phone: Hemoglobin mass conc (Bld) 14.1 g/dL 13.0-17.0 [facility] Work Phone: Lymphocytes #/vol (Bld) 2.6 10*3/uL 1.00-4.8 [facility] Work Phone: Lymphocytes/100 WBC (Bld) 40.3 % [facility] Work Phone: MCH Entitic mass (RBC) 30.4 pg 27.5-35.2 [facility] Work Phone: MCHC mass conc (RBC) 34.1 g/dL 32.5-35.6 [facility] Work Phone: MCV Entitic volume (RBC) 89.2 fL 83.5-101 [facility] Work Phone: Monocytes #/vol (Bld) 0.4 10*3/uL 0.0-0.8 [facility] Work Phone: Monocytes/100 WBC (Bld) 6.4 % [facility] Work Phone: Neutrophils #/vol (Bld) 3.1 10*3/uL 1.8-7.7 [facility] Work Phone: Neutrophils (%) (Auto) 49.1 % [facility] Work Phone: Neutrophils/100 WBC (Bld) 49.1 % [facility] Platelet mean volume Entitic volume (Bld) 10.7 fL High 6.6-10.1 [facility] Work Phone: Platelets #/vol (Bld) 160 10*3/uL 150-450 [facility] Work Phone: Potassium molar conc 3.4 mmol/L Low 3.5-5.1 [facility] Work Phone: RBC #/vol (Bld) 4.65 10*6/uL 3.90-5.60 [facility] Work Phone: Sodium molar conc 138 mmol/L 136-146 [facility] Work Phone: Urea nitrogen mass conc 7 mg/dL Low 9-23 [facility] Work Phone: WBC #/vol (Bld) 6.4 10*3/uL 4.1-10.5 [facility] Work Phone: Laboratory Studieson 017 Platelet Aggregation (ADP) 57.8 % 0-100 [facility] Work Phone: Comment on above: NO REFERENCE RANGE I S ESTABLISHED OR APPLICABLE Platelet Inhibition ADP 42.2 % 0-100 [facility] Work Phone: Comment on above: NO REFERENCE RANGE I S ESTABLISHED OR APPLICABLE TEG Max Amplitude (Citrated) 69.9 mm 50-70 [facility] Work Phone: TEG Max Amplitude (Rapid) 29.9 0-90 [facility] Work Phone: Comment on above: TEG MA A HAS NO REFE RENCE RANGE Thrombelastograph (TEG) Net G ADP 53.0 MM 0-90 [facility] Work Phone: Comment on above: TEG MA ADP HAS NO RE FERENCE RANGE Albumin mass conc 3.1 g/dL Low 3.2-5.5 [facility] Work Phone: Albumin/Globulin mass ratio 1.0 {ratio} [facility] Work Phone: ALP enzyme act/vol 44 U/L 32-92 [facility] Work Phone: ALT enzyme act/vol 18 U/L 10-60 [facility] Work Phone: AST enzyme act/vol 27 U/L 10-42 [facility] Work Phone: Bilirubin Ql (U) 0.6 mg/dL 0.3-1.2 [facility] Work Phone: Bilirubin.direct mass conc 0.1 mg/dL 0.0-0.4 [facility] Work Phone: Bilirubin.indirect mass conc (Body fld) 0.5 mg/dL [facility] Work Phone: Cholesterol in HDL mass conc 26 mg/dL Low 29-71 [facility] Work Phone: Comment on above: HDL CHOL ATP-III CLA SSIFICATION Cardiovascular Risk HDL > or equal to 60 mg/dL Low HDL < 40 mg/dL High Cholesterol mass conc 150 mg/dL 140-200 [facility] Work Phone: Comment on above: CHOL less than 200 m g/dL Low risk CHOL 201-239 mg/dL Borderline risk CHOL 240 mg/dL and greater High risk Cholesterol mass conc 30 mg/dL [facility] Work Phone: Cholesterol.total/Chol esterol in HDL mass ratio 5.8 {ratio} [facility] Work Phone: Globulin mass conc (S) 3.2 g/dL [facility] Work Phone: LDL Cholesterol, Calculated 93 mg/dL 0-100 [facility] Work Phone: Comment on above: LDL ATP III CLASSIFI CATION LDL less than 100 mg/dL Optimal LDL 100-129 mg/dL Near or above optimal LDL 130-159 mg/dL Borderline high LDL 160-189 mg/dL High LDL greater than 189 mg/dL Very high Protein mass conc 6.3 g/dL 6.1-7.9 [facility] Work Phone: Thyrotropin Qn 1.12 uIU/mL 0.45-5.33 [facility] Work Phone: Comment on above: Revised TSH Assay This assay is standardized to the World Health Organization International Standard for human TSH. Please note Reference Intervals have changed. Triglyceride mass conc 153 mg/dL High 35-149 [facility] Work Phone: Comment on above: TRIG ATP III CLASSIF ICATION TRIG less than 150 mg/dL Normal TRIG 150-199 mg/dL Borderline high TRIG 200-500 mg/dL High TRIG greater than 500 mg/dL Very high Standard traceable to the Center for Disease Conrtrol and Prevention (CDC) test method. Laboratory Studieson 017 Glucose mass conc Glu2: cleaned meter [facility] Work Phone: Ammonia mass conc (P) 19 umol/L 11-35 [facility] Work Phone: Cobalamin (Vitamin B12) mass conc 202 pg/mL 180-914 [facility] Work Phone: Folate 10.7 ng/mL [facility] Work Phone: Comment on above: FOLATE REFERENCE RAN GE: >5.9 ng/mL The WHO Technical Consultation on folate and vitamin B12 deficiencies has determined that folate concentrations less than 4 ng/mL are considered deficient. Amphetamines Ql (U) Negative [facility] Work Phone: Appearance Nom (U) Clear [facility] Work Phone: Bacteria LM.HPF #/area (Urine sed) None seen [facility] Work Phone: Benzodiazepines Ql (U) Positive High [facility] Work Phone: Bilirubin Ql (U) Negative [facility] Work Phone: Cocaine Ql (U) Negative [facility] Work Phone: Color Nom (U) Yellow [facility] Work Phone: Epithelial cells.squamous LM.HPF #/area (Urine sed) 5-9 /hpf High [facility] Work Phone: Glucose mass conc (U) 250 mg/dL High [facility] Work Phone: Hyaline casts LM Ql (Urine sed) 0-8 /lpf [facility] Work Phone: Ketones Ql (U) Trace [facility] Work Phone: Leukocyte esterase Test strip Ql (U) Negative [facility] Work Phone: Nitrite Ql (U) Negative [facility] Work Phone: Opiates Ql (U) Negative [facility] Work Phone: pH (U) 5.0 [pH] 5.0-9.0 [facility] Work Phone: Phencyclidine Ql (U) Negative [facility] Work Phone: Protein Ql (U) Negative [facility] Work Phone: RBC #/vol (U) 50-100 /hpf [facility] Work Phone: Specific gravity Relative Density (U) 1.039 High 1.001-1.03 0 [facility] Work Phone: Urine Barbiturates Screen Negative [facility] Work Phone: Urine Collection Type Type [facility] Work Phone: Comment on above: CATHETERIZED Urine Drug Screen Comment See comment [facility] Work Phone: Comment on above: THESE ARE UNCONFIRME D RESULTS AND SHOULD NOT BE USED FOR LEGAL PURPOSES. DRUG CUT-OFF CONCENTRATION: AMPH 1000 ng/mL EWA 200 ng/mL JOHN 200 ng/mL COCM 300 ng/mL OP 300 ng/mL PCP 25 ng/mL THC 20 ng/mL Urine Marijuana (THC) Screen Negative [facility] Work Phone: Urine Occult Blood 3+ High [facility] Work Phone: Urine Transitional Epithelial Cells 3-4 /hpf [facility] Work Phone: Urobilinogen Qn (U) Normal mg/dL [facility] Work Phone: WBC #/vol (U) 0-1 /hpf [facility] Work Phone: Bedside Ionized Calcium (Deepti) 1.22 mmol/L 1.12-1.32 [facility] Work Phone: Bedside Total CO2 23 mmol/L 23-29 [facility] Work Phone: Chloride molar conc 110.0 mmol/L High 98-109 [facility] Work Phone: Creatinine mass conc 1.2 mg/dL 0.6-1.3 [facility] Work Phone: Comment on above: ER/ESD PHYSICIAN IS NOTIFIED/SHOWN ALL ISTAT RESULTS. CRITICAL VALUES MAY BE CONFIRMED BY LABORATORY TESTING IF DEEMED NESCESSARY BY ER ATTENDING DOCTOR Glucose mass conc 135 mg/dL High 70-105 [facility] Work Phone: Hematocrit Volume Fraction (Bld) 48.0 % 38.0-51.0 [facility] Work Phone: Hemoglobin mass conc (Bld) 16.3 g/dL 12.0-17.0 [facility] Work Phone: Potassium molar conc 4.7 mmol/L 3.5-4.9 [facility] Work Phone: Sodium molar conc 144 mmol/L 138-146 [facility] Work Phone: Urea nitrogen mass conc 15 mg/dL 8-26 [facility] Work Phone: Amylase enzyme act/vol 39 U/L 28-100 [facility] Work Phone: CK.MB mass conc 9.5 ng/mL High 0.6-6.3 [facility] Work Phone: Creatine Kinase MB Relative Index 1.5 0.00-2.50 [facility] Work Phone: Ethyl Alcohol Level < 5 mg/dL [facility] Work Phone: Glucose mass conc 140 mg/dL High 70-100 [facility] Work Phone: Comment on above: RANDOM GLUCOSE REFER ENCE RANGE IS DEPENDENT ON TIME AND CONTENT OF LAST MEAL.GLUCOSE OF MORE THAN 200MG/DL IN A NONSTRESSED,AMBULATORY SUBJECT SUPPORTS THE DIAGNOSIS OF DIABETES MELLITUS. Lipase enzyme act/vol 22.0 U/L 22-51 [facility] Work Phone: Percent Ethyl Alcohol < 0.005 % [facility] Work Phone: Troponin I.cardiac mass conc ng/mL 0-0.02 [facility] Work Phone: Comment on above: DAMARIS ND Cut off value > or equal to 0.03 ng/mL in conjunction with clinical conditions of myocardial infarction. ([email or web address].org/guidelines) Glucose mass conc 134 mg/dL [facility] Work Phone: Hemoglobin A1c/Hemoglobin.total mass fraction (Bld) 6.3 % High 4.3-5.6 [facility] Work Phone: Comment on above: Increased risk for d iabetes: 5.7 - 6.4 Diabetes: >6.4 Glycemic control for adults with diabetes: <7.0 Vital Signs Date Time Vital Sign Value Performing Clinician Facility 11-05-2022 14:30-0500 Diastolic blood pressure 72 mm[Hg] [address] [facility] [employer] Other 11-05-2022 14:30-0500 SaO2% (BldA) [Mass fraction] 97 % [address] [facility] [employer] Other 11-05-2022 14:30-0500 Systolic blood pressure 118 mm[Hg] [address] [facility] [employer] Other 10-18-2022 14:00-0500 Body weight 96.71 kg Benson [facility] [employer] Other 10-18-2022 14:00-0500 Diastolic blood pressure 64 mm[Hg] [address] [facility] [employer] Other 10-18-2022 14:00-0500 SaO2% (BldA) [Mass fraction] 98 % Benson Dom[facility] [employer] Other 10-18-2022 14:00-0500 Systolic blood pressure 120 mm[Hg] [address] [facility] [employer] Other 07-20-2022 16:00-0500 Body temperature 97.4 [degF] MD Genesis Reynolds Work Phone: [facility] 07-20-2022 16:00-0500 Diastolic blood pressure 72 mm[Hg] MD Genesis Reynolds Work Phone: [facility] 07-20-2022 16:00-0500 Heart rate 61 /min MD Genesis Reynolds Work Phone: [facility] 07-20-2022 16:00-0500 Respiratory rate 16 /min MD Genesis Reynolds Work Phone: [facility] 07-20-2022 16:00-0500 SaO2% (BldA) [Mass fraction] 98 % MD Genesis Reynolds Work Phone: [facility] 07-20-2022 16:00-0500 Systolic blood pressure 159 mm[Hg] MD Genesis Reynolds Work Phone: [facility] 07-20-2022 06:00-0500 Body weight 95.3 kg MD Genesis Reynolds Work Phone: [facility] 07-18-2022 11:22-0500 Body height 177.8 cm MD Genesis Reynolds Work Phone: [facility] 07-17-2022 22:14-0500 Body height 177.8 cm MD Genesis Reynolds Work Phone: [facility] 07-17-2022 22:14-0500 Body temperature 97.5 [degF] MD Genesis Reynolds Work Phone: [facility] 07-17-2022 22:14-0500 Body weight 95.9 kg MD Genesis Reynolds Work Phone: [facility] 07-17-2022 22:14-0500 Diastolic blood pressure 87 mm[Hg] MD Genesis Reynolds Work Phone: [facility] 07-17-2022 22:14-0500 Heart rate 74 /min MD Genesis Reynolds Work Phone: [facility] 07-17-2022 22:14-0500 Respiratory rate 16 /min MD Genesis Reynolds Work Phone: [facility] 07-17-2022 22:14-0500 SaO2% (BldA) [Mass fraction] 99 % MD Genesis Reynolds Work Phone: [facility] 07-17-2022 22:14-0500 Systolic blood pressure 180 mm[Hg] MD Genesis Reynolds Work Phone: [facility] 02-13-2018 14:12-0400 Body Temperature 98 [degF] [facility] [facility] 02-13-2018 14:12-0400 BP Diastolic 74 mm[Hg] Bro Srivastavajudy [facility] 02-13-2018 14:12-0400 BP Systolic 113 mm[Hg] Bro Sanford [facility] 02-13-2018 14:12-0400 Pulse Oximetry 95 % Bro [facility] 02-13-2018 14:12-0400 Respiratory Rate 18 /min [facility] 02-11-2018 22:00-0400 Pulse (Heart Rate) 73 /min [facility] NEGATED: Highlighted row BMI (Body Mass Index) [facility] NEGATED: Highlighted row BMI (Body Mass Index) [facility] NEGATED: Highlighted row Height [facility]: Highlighted row Height Bro Ashtonpetersonjudy [facility] Encounters Encounter Date Encounter Type Care Provider Facility Start: 06-24-2024 End: 06-25-2024 Refill Vianey Zaldivar MD Work Phone: [facility] Comment on above: Primary hypertension (CMS/HCC) (Primary Dx) Start: 05-04-2024 ambulatory GENESIS Hai [facility] Start: 04-30-2024 ambulatory GENESIS M [facility] Start: 04-29-2024 End: 05-04-2024 Emergency department patient visit GENESIS Valles Arias [facility] Start: 03-26-2024 End: 03-26-2024 ambulatory [facility] Start: 02-25-2024 End: 02-25-2024 ambulatory FESTUS [facility] Start: 02-17-2024 End: 02-17-2024 ambulatory [facility] Start: 02-17-2024 End: 02-17-2024 Encounter for other preprocedural examination [facility] Start: 11-10-2023 End: 11-11-[address] [facility] Start: 11-10-2023 End: 11-10-2023 Subsequent hospital visit by physician Bro Sanford MD Work Phone: [facility] Start: 04-26-2023 End: 04-27-[address] [facility] Start: 04-25-2023 End: 04-26-2023 Emergency department patient visit BRO SANFORD [facility] Start: 04-19-2023 ambulatory Danilo Hayse acility:[facility] Start: 01-17-2023 End: 01-17-[address] GENESIS REYNOLDS . Facility:[facility]1 Start: 12-06-2022 End: 12-06-[address] Other [employer] Other Start: 12-06-[address] [facility] Tanyard Worker Start: 11-15-2022 End: 11-17-2022 Evaluation and management of inpatient DR GENESIS REYNOLDS . Facility:[facility]1 Start: 11-13-2022 End: 11-13-[address] Other [employer] Other Start: 11-13-[address] [facility] Start: 11-05-2022 End: 11-05-2022 ambulatory Benson Domingo Other [employer] Other Start: 11-05-2022 Office outpatient vi sit 15 minutes Benson Domingo [facility] Start: 11-01-2022 End: 11-01-2022 ambulatory Genesis Reynolds Facility:[facility] Start: 11-01-2022 End: 11-01-2022 ambulatory MD Genesis Reynolds Work Phone: [facility] Work Phone: Start: 11-01-2022 End: 11-01-2022 Patient encounter procedure MD Genesis Reynolds Work Phone: [facility] Work Phone: Start: 10-26-2022 End: 10-27-[address] GENESIS REYNOLDS . Facility:[facility]1 Start: 10-25-2022 (PROC) PROCEDURE [address] [facility] Start: 10-25-2022 End: 10-26-[address] GENESIS REYNOLDS . [employer] Other Start: 10-18-2022 End: 10-18-2022 ambulatory Benson Mcdowellky Other [employer] Other Start: 10-18-2022 Office outpatient ne w [...] of inpatient MD Genesis Reynolds Work Phone: [facility]-3 Force Med Surg Start: 07-17-2022 End: 07-20-2022 observation encounter MD Genesis Reynolds Work Phone: [facility] Work Phone: Start: 07-15-2022 End: 07-16-[address] GENESIS REYNOLDS . Facility:[facility]1 Start: 06-21-2022 End: 06-22-[address] GENESIS REYNOLDS . Facility:[facility]1 Start: 05-13-2022 End: 05-16-2022 Evaluation and management of inpatient DR GENESIS REYNOLDS . Facility:[facility]1 Start: 05-07-[address] GENESIS REYNOLDS . Facili ty:H1 Start: 12-17-2019 Preoperative state MD Genesis Reynolds Work Phone: [facility] Start: 12-24-2018 End: 12-24-2018 Patient encounter procedure Bro [facility] Start: 02-08-2018 End: 02-13-2018 Evaluation and management of inpatient [facility] Start: 01-12-2018 End: 01-17-2018 Evaluation and management of inpatient [facility] Start: 04-02-2017 End: 04-05-2017 Evaluation and management of inpatient [facility] Start: 06-09-2006 End: 07-09-2006 Discharged Recurring [facility] Start: 04-09-2006 End: 05-09-2006 Discharged [facility] Start: 03-09-2006 End: 04-08-2006 Discharged Rec[facility]ring [facility] Start: 02-22-2006 End: 03-08-2006 Discharged Rec[facility]ring [facility] Start: 02-10-2006 End: 02-14-2006 Evaluation and management of inpatient [facility] Start: 05-10-2000 End: 06-08-2000 Discharged Recurring [facility] Start: 04-09-2000 End: 05-09-2000 Discharged Recurring [facility] Start: 03-09-2000 End: 04-08-2000 Discharged [facility] Start: 02-08-2000 End: 03-08-2000 Discharged [facility] Start: 01-08-2000 End: 02-07-2000 Discharged Rec[facility]ring [facility] Start: 12-09-1999 End: 02-07-2000 Discharged [facility] Start: 11-08-1999 End: 12-08-1999 Discharged Rec[facility] Start: 10-10-1999 End: 11-07-1999 Discharged [facility] Start: 09-09-1999 End: 10-09-1999 Discharged Recurring Bro Sanford [facility] Start: 08-09-1999 End: 10-09-1999 Discharged Recurring Bro Sanford [facility] Start: 07-10-1999 End: 08-08-1999 Discharged Recurring Bro [facility] Start: 06-26-1999 End: 07-09-1999 Discharged Recurring [facility] Start: 03-29-1998 End: 03-29-1998 Patient encounter procedure [facility] Start: 02-24-1987 End: 02-28-1987 Evaluation and management of inpatient [facility] Start: 12-22-1986 End: 12-23-1986 Evaluation and management of inpatient [facility] Procedures Date Procedure Procedure Detail Performing Clinician Start: 11-10-2023 Urnls dip stick/tabl et reagent auto microscopy Susan Uriostegui [employer] - [employer] UP Work Phone: Start: 11-01-2022 X-ray of lumbar [...] - Tdap) DTaP/Tdap/Td vaccine (2 - Tdap) [facility] Start: 05-10-2024 Influenza vaccination Influenza Vacc ine (#1) [facility] Start: 04-26-2024 Lipid panel Lipids [facility] Start: 04-25-2024 GFR test (Diabetes, CKD 3-4, OR last GFR 15-59) GFR test (Diabetes, CKD 3-4, OR last GFR 15-59) [facility] Start: 08-05-2023 Annual Wellness Visi t (Medicare) Annual Wellness Visit (Medicare) [facility] Start: 05-10-2023 COVID-19 Vaccine ( season) COVID-19 Vaccine ( season) [facility] Start: 04-09-2023 Influenza vaccination Flu vaccine (# 1) [facility] Start: 07-20-2022 [facility] Start: 07-18-2022 Lipid panel [facility] Start: 07-17-2022 Hospital admission [facility] Start: 07-17-2022 Physical therapy procedure [facility] Start: 07-17-2022 Referral to stereo equipment installer [facility] Start: 07-17-2022 Referral to occupational therapist [facility] Start: 07-17-2022 [facility] Start: 07-17-2022 [facility] Start: 11-29-2021 Pneumococcal Vaccine : 65+ Years (2 of 2 - PPSV23 or PCV20) Pneumococcal Vaccine: 65+ Years (2 of 2 - PPSV23 or PCV20) [facility] Start: 2021 Abdominal aortic aneurysm screening AAA screen [facility] Start: 01-24-2021 Pneumococcal 65+ yea rs Vaccine (2 - PPSV23 or PCV20) Pneumococcal 65+ years Vaccine (2 - PPSV23 or PCV20) [facility] [employer] Start: 2016 Respiratory Syncytia l Virus (RSV) or age 60 yrs+ (1 - 1-dose 60+ series) Respiratory Syncytial Virus (RSV) or age 60 yrs+ (1 - 1-dose 60+ series) [facility] Start: 2006 Screening for malign ant neoplasm of lung Low dose CT lung screening &/or counseling [facility] Start: 2006 Shingles vaccine (1 of 2) Shingles vaccine (1 of 2) [facility] Start: 2001 Screening for malign ant neoplasm of colon [facility] Start: 1974 Glaucoma screening Diabetic retinal exam [facility] Start: 1974 Hepatitis C screening Hepatitis C sc reen [facility] Start: 1974 Urine screening for protein Diabetic Alb to Cr ratio (uACR) test [facility] [employer] Start: 1968 Depression Screen Depression Screen [facility] Start: 1966 Diabetic foot examination Diabetic foot exam [facility] Start: 1966 Hemoglobin A1c measurement A1C test (Diabetic or Prediabetic) [facility] Start: 1956 Screening for malign ant neoplasm of colon [facility] Bacteria identified in Blood by Culture Blood Culture [facility] Blood culture for bacteria, including anaerobic screen Blood Culture [facility] End: 11-10-2023 Culture, Urine [facility] Work Phone: Comment on above: Once for 1 Occurrenc es starting 11/10/2023 until 11/10/2023 Patient referral [facility] Work Phone: [facility] Immunizations Immunization Date Immunization Notes Care Provider [facility] 06-23-2021 influenza virus vacc ine, unspecified formulation Vianey Zaldivar MD Work Phone: [facility] Payers Date Payer Category Payer Self-pay 2021 Medicare MEDICARE [id number] 2011 [facility] Mem er [id number] 2009 Unknown [id number] 1959 Medicare [id number] 1959 Unknown [id number] 1956 Unknown [id number] 2.840.1.715738.3.57 9.2.593 1956 Unknown [id number] 2.16840.1.909222.3.57 9.2.593 1956 Unknown [id number] 2.16840.1.478055.3.57 9.2.593 1956 Unknown [id number] 2.840.1.756842.3.57 9.2.593 1956 Unknown [id number] 2.16840.1.313832.3.57 9.2.593 1956 Unknown [id number] 2.16840.1.888543.3.57 9.2.593 1956 Unknown [id number] 2.16840.1.894822.3.57 9.2.593 1956 Unknown [id number] 2.16840.1.893756.3.57 9.2.593 1956 Unknown [id number] 2.16.840.1.215085.3.57 9.2.593 1956 Unknown [id number] 2.16.840.1.809342.3.57 9.2.593 1956 Unknown [id number] 2.16.840.1.017185.3.57 9.2.356 1956 Unknown [id number] 2.16.840.1.365390.3.57 9.2.356 1956 Unknown [id number] 2.16.840.1.270247.3.57 9.2.356 1956 Unknown [id number] 2.16.840.1.694505.3.57 9.2.356 1956 Unknown [id number] 2.16.840.1.686478.3.57 9.2.356 1956 Unknown [id number] 2.16.840.1.854986.3.57 9.2.356 1956 Unknown [id number] 2.16.840.1.273723.3.57 9.2.173 1956 Unknown [id number] 2.16.840.1.396498.3.57 9.2.1286 1956 Unknown [id number] 2.16.840.1.598366.3.57 9.2.1286 1956 Unknown [id number] 2.16.840.1.034244.3.57 9.2.1286 1956 Unknown [id number] 2.16.840.1.560425.3.57 9.2.1286 Unknown [facility] [employer] [id number] Unknown [id number] 2.16.840.1.045416.3.57 9.2.531 Unknown [id number] 2.16.840.1.475668.3.57 9.2.531 Social History Date Type Detail Facility Start: 07-17-2022 End: 07-18-2022 Tobacco smoking status NHIS Smoker (finding) [facility] Start: 1955 Sex Assigned At Male [facility] Start: 04-25-2023 Sex Assigned At [facility] [employer] Other Start: 12-26-2016 Tobacco smoking status VTIS Smokes tobacco daily [facility] [employer] History of tobacco use Cigarette Smoker B ON [employer] Start: 12-26-2016 End: 04-25-2023 Cigarettes smoked current (pack per day) - Reported 1.5 [facility] [employer] Start: 12-26-2016 Tobacco use and exposure Smokeless tobacco non-user [facility] [employer] Start: 04-25-2023 Alcohol intake Current non-drinker of alcohol (finding) [facility] [employer] Start: 1955 Sex Assigned At Not on file [facility] [employer] [facility] consumption unknown [facility] Medical Equipment Procedure Code Equipment Code Equipment Origin al Text Equipment Identifier Dates [id number] Start: 12-24-2018 End: 04-11-2019 Glucose test strips Start : 12-24-2018 End: 04-10-2019 Glucose test strips Start : 12-24-2018 End: 04-10-2019 Glucose test strips Start : 12-24-2018 End: 04-10-2019 Goals Date Patient Goal Desired Activity /State Functional Status Date Assessment Result Facility 07-20-2022 Functional status Patient at Baseline [facility] Work Phone: Mental Status Date Assessment Result Facility 07-20-2022 Cognitive function Cognitive Sta tus Patient at Baseline [facility] Work Phone: Clinical Notes 2018 to 06-25-2024 Telephone Encounter - Susan Uriostegui NP - 06/25/2024 5:07 PM EDTTelephone Encounter - Susan Uriostegui NP - 06/25/2024 5:07 PM EDT Note Date & Type Note Facility 06-25-2024 Telephone encount er Note Rx for losartan is sent. [facility] 06-25-2024 Miscellaneous Notes Formattin g of this note might be different from the original. Rx for losartan is sent. documented in this encounter [facility] 03-26-2024 Note [facility] Cardiology Clinic Note Chief Complaint: New patient here to establish care. Ref from Dr. Reynolds for abnormal stress test. 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 Stress test was [...] Coronary artery disease, PVD (peripheral vascular disease) ([facility]), and Stroke ([facility]). Surgical History He has a past [...] Coronary angiography: Left (more content not included)... [facility] 02-25-2024 Note Patient: Taylor briceño Procedure Information Date/Time: 02/25/24 1030 Procedure: Coronary angiography (Left) - andrea Location: [facility] HELMET HAT BRIM CUTTER 3 / [facility] (Cath) Providers: Festus Castillo MD [...] consented to blood products. Additional Equipment Requests [facility] 02-17-2024 Note [facility] Cardiology Clinic Note Chief Complaint: New patient here to establish care. Ref from Dr. Reynolds for abnormal stress test. 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 Stress test was [...] catheterization. 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 [facility] 11-05-2022 Evaluation note Encounter Date Diagnosis [...] (ICD-10 - G89.29) Follow up after procedure. [employer] Other 02-09-2023 Evaluation note* Encounter Date Diagnosis [...] cant remember who the surgeon was in [place]. He presents with his today, both the [...] negative findings were considered in medical decision-making. [employer] Other 11-11-[address] [facility] July 20, 2022 6:39pm Note Date/Time July 20, 2022 3:04pm [facility] [address] [place] [id number] Discharge Summary Signed Patient: Taylor Mcclellan SR MR#: [id number] : 1955 Acct:[id number] Age/Sex: 66 / M Adm Date: 2 Loc: Room: [address] [place] [address]: Sang Bauer MD Copies to: [...] affect Discharge Plan Discharge Plan Patient Disposition: Nursing Home Facility Activity: No Activity Restriction Diet: [...] tablet 75 mg PO DAILY Discontinued hydrocodone-acetaminophen [[place]] 5-325 mg tablet 1 tab PO BID PRN (Reason: Pain) Qty: 0 0RF Other Ambulatory Orders: DME Home Medical Equipment (Routine) Timeframe: [id number] Location: Determined by Patient Ordered By: Sang Bauer Follow Up: Lilia Hopper APRN [Nurse Practitioner] - 08/22/22 10:30 am Documented By: Sang Bauer MD 07/20/22 1500 Signed By: <Electronically signed by Sang Bauer MD> 07/20/22 4733 [facility] Work Phone: 1(782) 494-932711-11-2022 Progress note Author Itzel Adams [facility] July 20, 2022 8:06am Note Date/Time July 20, 2022 8:06am [facility] [address] [place] [address] Cardiology Progress Note Signed Patient: Taylor Mcclellan MR#: [id number] : 1955 Acct:[id number] Age/Sex: 66 / M Adm Date: 2 Loc: Room: [address] [place] [address] Type: ADM INOo Attending Dr: Sang Bauer [...] it is a single-vessel bypass done in [place] record is not available patient and his cannot remember which hospital he had his surgery at. He does not follow with cardiology Qualifiers: Coronary Disease-Associated Artery/Lesion type: [place] artery [place] vs. transplanted heart: eastern shosh[place] heart Associated angina: without angina Qualified Code(s): I25.10 - Atherosclerotic heart disease of [place] coronary artery without angina pectoris Code(s): I25.10 - Atherosclerotic heart disease of eastern shosh[place] coronary artery without angina pectoris Status: Acute [...] 3. Stress test negative for ischemia or ND. Patient can be discharged home cardiac chew Documented By: Itzel Adams MD 07/20/22804 Signed By: <Electronically signed by MD Itzel Adams> 07/20/22805 [facility] Work Phone: 1(361) 634-721411-10-2022 Progress note Author Sang Bauer [facility] July 19, 2022 4:57pm Note Date/Time July 19, 2022 4:57pm [facility] [address] [place] [address] Hospitalist Progress Note Signed Patient: Taylor Mcclellan SR MR#: [id number] : 1955 Acct:[id number] Age/Sex: 66 / M Adm Date: 2 Loc: Room: [address] [place] [address] Type: ADM INOo Attending Dr: Sang Bauer [...] code Documented By: Sang Bauer MD 07/19/22 9195 Signed By: <Electronically signed by Sang Bauer MD> 07/19/22 1657 [facility] Work Phone: 1(765) 662-782611-10-2022 Progress note Author Itzel Adams [facility] July 19, 2022 8:35am Note Date/Time July 19, 2022 8:35am [facility] [address] [place] [address] Cardiology Progress Note Signed Patient: Taylor Mcclellan SR MR#: [id number] : 1955 Acct:[id number] Age/Sex: 66 / M Adm Date: 2 Loc: Room: [address] [place] [address] Type: ADM INOo Attending Dr: Sang Bauer [...] it is a single-vessel bypass done in [place] record is not available patient and his cannot remember which hospital he had his surgery at. He does not follow with cardiology Qualifiers: Coronary Disease-Associated Artery/Lesion type: [place] artery [place] vs. transplanted heart: eastern shosh[place] heart Associated angina: without angina Qualified Code(s): I25.10 - Atherosclerotic heart disease of eastern shosh[place] coronary artery without angina pectoris Code(s): I25.10 - Atherosclerotic heart disease of eastern [place] coronary artery without angina pectoris Status: Acute [...] <Electronically signed by MD Itzel Adams> 07/19/2235 [facility] Work Phone: 1([phone]) 419-885211-09-2022 Progress note [facility] July 18, 2022 3:24pm Note Date/Time July 18, 2022 3 :24pm [facility] [address] [place] [address] Hospitalist Progress Note Signed Patient: Taylor Mcclellan MR#: [id number] : 1955 Acct:[id number] Age/Sex: 66 / M Adm Date: 2 Loc: 3T Room: [address] [place] [address] Type: ADM INOo Attending Dr: Sang Bauer [...] 25 Mg Tablet PO 07/18/23 13:59 TID [facility] Insulin Aspart 0 units 07/17/22 22:00 07/18/22 11:48 Insulin Aspart 300 Units/3 Ml Insuln.Pen SUBCUT 07/17/23 21:59 Not Given TID.WM.HS [facility] Protocol Lamotrigine 100 mg 07/18/22 12:00 [...] 11:15 Brexpiprazole [Rexulti] PO 07/18/23 11:14 1XD [facility] Ondansetron HCl 4 mg 07/17/22 18:33 [...] signed by Sang Bauer MD> 07/18/22 1524 [facility] Work Phone: 1(703) 547-693811-09-2022 History and physical note Author Sang Bauer [facility] July 18, 2022 3:22pm Note Date/Time July 17, 2022 6 :41pm [facility] [address] [place] [address] Hospitalist H&P Signed Patient: Taylor Mcclellan MR#: [id number] : 1955 Acct:[id number] Age/Sex: 66 / M Adm Date: 2 Loc: 3T Room: [address] [place] [address] Type: ADM INOo Attending Dr: Sang Bauer [...] at home. Reportedly patient was taken to [facility] couple days ago when he was [...] his live in a mobile home in [place]. Meds Medications and Allergies Allergies chlordiazepoxide [From [...] 07/17/22] hydrocodone 5 mg-acetaminophen 325 mg tablet ([place]) 1 tab PO BID PRN Pain #0 [...] % (Auto) 29.5 % (.) 07/17/22 15:44 Branch % (Auto) 5.4 % (.) 07/17/22 15:44 Eos % (Auto) 0.7 % (.) 07/17/22 15:44 Baso % (Auto) 1.0 % (.) 07/17/22 15:44 Neut # (Auto) 4.9 x10E3/uL (1.8-7.7) 07/17/22 15:44 Lymph # (Auto) 2.3 x10E3/uL (1.00-4.8) 07/17/22 15:44 Branch # (Auto) 0.4 x10E3/uL (0.0-0.8) 07/17/22 15:44 [...] <Electronically signed by Sang Bauer MD> 07/18/22 8435 [facility] Work Phone: 1([phone]) 412-329511-09-2022 Consult note Author Itzel Adams [facility] July 18, 2022 11:46am Note Date/Time July 18, 2022 1 1:43am [facility] [address] [place] [address] Cardiology Consult Note Signed Patient: Taylor Mcclellan SR MR#: [id number] : 1955 Acct:[id number] Age/Sex: 66 / M Adm Date: 2 Loc: Room: [address] [place] [address] Type: ADM INOo Attending Dr: Sang Bauer MD Copies to: MD Genesis Goetz MD Mourhaf A Traboulssi, MD~ Cardiology HPI History of Present Illness Consult Date: 07/18/22 Reason for Consult: Chest pain HPI: Mr. Mcclellan is a 66 year old male with known history of coronary artery disease and prior bypass surgery done in [place]. No records available. Patient report to have [...] his live in a mobile home in [place]. Meds Medications and Allergies Allergies chlordiazepoxide [From [...] 07/17/22] hydrocodone 5 mg-acetaminophen 325 mg tablet ([place]) 1 tab PO BID PRN Pain #0 [...] x10E3/uL Lymph # (Auto) 2.3 (1.00-4.8) x10E3/uL Branch # (Auto) 0.4 (0.0-0.8) x10E3/uL Eos # [...] @ 100 mls/hr IV ONCE ONE Rx #:[id number] Oral 0 / 0 50 / 50 [...] it is a single-vessel bypass done in [place] record is not available patient and his cannot remember which hospital he had his surgery at. He does not follow with cardiology Qualifiers: Coronary Disease-Associated Artery/Lesion type: [place] artery [place] vs. transplanted heart: [place] heart Associated angina: without angina Qualified Code(s): I25.10 - Atherosclerotic heart disease of [place] coronary artery without angina pectoris Code(s): I25.10 - Atherosclerotic heart disease of [place] coronary artery without angina pectoris (3) Hx [...] signed by MD Itzel Adams> 07/18/22 1146 [facility] Work Phone: 1(375) 620-157511-08-2022 History and physical note Author Sang Bauer [facility] July 18, 2022 3:22pm Note Date/Time July 17, 2022 6 :41pm [facility] [address] [place] [address] Hospitalist H&P Signed Patient: Taylor Mcclellan MR#: [id number] : 1955 Acct:[id number] Age/Sex: 66 / M Adm Date: 2 Loc: Room: 3W2165-8 Type: ADM INOo Attending Dr: Sang Bauer [...] at home. Reportedly patient was taken to [facility] couple days ago when he was [...] his live in a mobile home in [place]. Meds Medications and Allergies Allergies chlordiazepoxide [From [...] 07/17/22] hydrocodone 5 mg-acetaminophen 325 mg tablet ([place]) 1 tab PO BID PRN Pain #0 [...] % (Auto) 29.5 % (.) 07/17/22 15:44 Branch % (Auto) 5.4 % (.) 07/17/22 15:44 Eos % (Auto) 0.7 % (.) 07/17/22 15:44 Baso % (Auto) 1.0 % (.) 07/17/22 15:44 Neut # (Auto) 4.9 x10E3/uL (1.8-7.7) 07/17/22 15:44 Lymph # (Auto) 2.3 x10E3/uL (1.00-4.8) 07/17/22 15:44 Branch # (Auto) 0.4 x10E3/uL (0.0-0.8) 07/17/22 15:44 [...] code Documented By: Sang Bauer MD 07/17/22 4774 Signed By: <Electronically signed by Sang Bauer MD> 07/18/22 1521 [facility] Work Phone: 1(670) 948-323901-07-2019 Consult note Author Itzel Adams [facility] July 18, 2022 11:46am Note Date/Time July 18, 2022 1 1:43am [facility] [address] [place] [address] Cardiology Consult Note Signed Patient: Taylor Mcclellan SR MR#: [id number] : 1955 Acct:[id number] Age/Sex: 66 / M Adm Date: 2 Loc: 3T Room: [address] [place] [address] Type: ADM INOo Attending Dr: Sang Bauer MD Copies to: MD Genesis Goetz MD Mourhaf A Traboulssi, MD~ Cardiology HPI History of Present Illness Consult Date: 07/18/22 Reason for Consult: Chest pain HPI: Mr. Mcclellan is a 66 year old male with known history of coronary artery disease and prior bypass surgery done in [place]. No records available. Patient report to have [...] his live in a mobile home in [place]. Meds Medications and Allergies Allergies chlordiazepoxide [From [...] 07/17/22] hydrocodone 5 mg-acetaminophen 325 mg tablet ([place]) 1 tab PO BID PRN Pain #0 [...] x10E3/uL Lymph # (Auto) 2.3 (1.00-4.8) x10E3/uL Branch # (Auto) 0.4 (0.0-0.8) x10E3/uL Eos # [...] @ 100 mls/hr IV ONCE ONE Rx #:[id number] Oral 0 / 0 50 / 50 [...] it is a single-vessel bypass done in [place] record is not available patient and his cannot remember which hospital he had his surgery at. He does not follow with cardiology Qualifiers: Coronary Disease-Associated Artery/Lesion type: [place] artery [place] vs. transplanted heart: eastern [place] heart Associated angina: without angina Qualified Code(s): I25.10 - Atherosclerotic heart disease of [place] coronary artery without angina pectoris Code(s): I25.10 - Atherosclerotic heart disease of [place] coronary artery without angina pectoris (3) Hx [...] signed by MD Itzel Adams> 07/18/22 1146 [facility] Work Phone: Discharge summary Author Sang Bauer [facility] July 20, 2022 6:39pm Note Date/Time July 20, 2022 3:04pm [facility] [address] [place] [address] Discharge Summary Signed Patient: Taylor Mcclellan MR#: [id number] : 1955 Acct:[id number] Age/Sex: 66 / M Adm Date: 2 Loc: Room: [address] [place] [address]: Sang Bauer MD Copies to: [...] affect Discharge Plan Discharge Plan Patient Disposition: Nursing Home Facility Activity: No Activity Restriction Diet: [...] tablet 75 mg PO DAILY Discontinued hydrocodone-acetaminophen [[place]] 5-325 mg tablet 1 tab PO BID PRN (Reason: Pain) Qty: 0 0RF Other Ambulatory Orders: DME Home Medical Equipment (Routine) Timeframe: [id number] Location: Determined by Patient Ordered By: Sang Bauer Follow Up: Lilia Hopper APRN [Nurse Practitioner] - 08/22/22 10:30 am Documented By: Sang Bauer MD 07/20/22 1504 Signed By: <Electronically signed by Sang Bauer MD> 07/20/22 8244 [facility] Work Phone: Evaluation note* Diagnosis Onset Date Resolution Status Chest pain acute Coronary artery disease acut e Generalized weakness acute Hx of CABG acute Diabetes mellitus chronic HTN (hypertension) chronic [facility] Work Phone: Evaluation note* Diagnosis Onset Date Resolution Status Bipolar 1 disorder, depressed, severe acute Chest pain acute Coronary artery disease acut e Generalized weakness acute Hx of CABG acute Chronic back pain chronic Diabetes mellitus chronic HTN (hypertension) chronic [facility] Work Phone: Evaluation noteNo assessment information available [facility] Work Phone: evaluation noteNo InformationNortSub[facility] [email or web address] Other Evaluation note* Diagnosis Primary hypertension (CMS/HCC)- [...] Surgical History CABG Hospitalization History see above [facility] Other Hospital Discharge instructions Additional Instructions SNF TO MANAGE: PT/OT to eval and treat Monitor VS per protocol--HTN Monitor FSBS Maintain high risk fall precautions Care [facility] be [facility] Work Phone: Progress note Author Sang Bauer [facility] July 18, 2022 3:24pm Note Date/Time July 18, 2022 3 :24pm [facility] [address] [place] [address] Hospitalist Progress Note Signed Patient: Taylor Mcclellan MR#: [id number] : 1955 Acct:[id number] Age/Sex: 66 / M Adm Date: 2 Loc: 3T Room: [address] [place] [address] Type: ADM INOo Attending Dr: Sang Bauer [...] Insuln.Pen SUBCUT 07/17/23 21:59 Not Given TID.[facility] Protocol Lamotrigine 100 mg 07/18/22 12:00 [...] signed by Sang Bauer MD> 07/18/22 1524 [facility] Work Phone: Progress note Author Itzel Adams [facility] July 19, 2022 8:35am Note Date/Time July 19, 2022 8:35am [facility] [address] [place] [address] Cardiology Progress Note Signed Patient: Taylor Mcclellan MR#: [id number] : 1955 Acct:[id number] Age/Sex: 66 / M Adm Date: 2 Loc: Room: [address] [place] [address] Type: ADM INOo Attending Dr: Sang Bauer [...] it is a single-vessel bypass done in [place] record is not available patient and his cannot remember which hospital he had his surgery at. He does not follow with cardiology Qualifiers: Coronary Disease-Associated Artery/Lesion type: [place] artery [place] vs. transplanted heart: [place] heart Associated angina: without angina Qualified Code(s): I25.10 - Atherosclerotic heart disease of [place] coronary artery without angina pectoris Code(s): I25.10 - Atherosclerotic heart disease of [place] coronary artery without angina pectoris Status: Acute [...] <Electronically signed by MD Itzel Adams> 07/19/22834 [facility] Work Phone: Progress note Author Sang Bauer [facility] July 19, 2022 4:57pm Note Date/Time July 19, 2022 4:57pm [facility] [address] [place] [address] Hospitalist Progress Note Signed Patient: Taylor Mcclellan MR#: [id number] : 1955 Acct:[id number] Age/Sex: 66 / M Adm Date: 2 Loc: Room: [address] [place] [address] Type: ADM INOo Attending Dr: Sang Bauer [...] Insuln.Pen SUBCUT 07/17/23 21:59 Not Given TID.[facility] Protocol Lamotrigine 100 mg 07/18/22 12:00 [...] <Electronically signed by Sang Bauer MD> 07/19/221656 [facility] Work Phone: Progress note Author Itzel Adams [facility] July 20, 2022 8:06am Note Date/Time July 20, 2022 8:06am [facility] [address] [place] [address] Cardiology Progress Note Signed Patient: Taylor Mcclellan SR MR#: [id number] : 1955 Acct:[id number] Age/Sex: 66 / M Adm Date: 2 Loc: Room: [address] [place] [address] Type: ADM INOo Attending Dr: Sang Bauer [...] it is a single-vessel bypass done in [place] record is not available patient and his cannot remember which hospital he had his surgery at. He does not follow with cardiology Qualifiers: Coronary Disease-Associated Artery/Lesion type: [place] artery [place] vs. transplanted heart: [place] heart Associated angina: without angina Qualified Code(s): I25.10 - Atherosclerotic heart disease of [place] coronary artery without angina pectoris Code(s): I25.10 - Atherosclerotic heart disease of [place] coronary artery without angina pectoris Status: Acute [...] 3. Stress test negative for ischemia or ND. Patient can be discharged home cardiac chew Documented By: Itzel Adams MD 07/20/22 0805 Signed By: <Electronically signed by MD Itzel Adams> 07/20/22 0806 [facility] Work Phone: Summary Purpose [...] section and content) DATE CREATED AUTHOR 10/15/2019 [facility] DATE CREATED AUTHOR AUTHOR'S ORGANIZ ATION 11/29/2021 [facility] DATE CREATED AUTHOR AUTHOR'S ORGANIZ ATION 01/21/2023 [facility] DATE CREATED AUTHOR AUTHOR'S ORGANIZ ATION 01/23/2023 [facility] DATE CREATED AUTHOR AUTHOR'S ORGANIZ ATION 08/18/2023 [facility] DATE CREATED AUTHOR AUTHOR'S ORGANIZ ATION 11/11/2023 Susan [facility] DATE CREATED AUTHOR AUTHOR'S ORGANIZ ATION 03/30/2024 [facility] DATE CREATED AUTHOR AUTHOR'S ORGANIZ ATION 05/06/2024 [facility] Care Teams (unrecognized sec tion and content) Team Status: Active Member Role Status Dates Genesis Reynolds MD Primary Care Provider Active Segundo Huston MD Emergency Provider Active Sang Bauer MD Admit Provider, Attending Provider A ctive Gardenia cMkeon RN Other Provider Active W Valerio Lee DO Other Provider Active Kaden Summers MD Other Provider Active Edinson Bustamante MD Other Provider Active Itzel Adams MD Other Provider Active Ramos Fraga MD Other Provider Active Lilia Orourke APRN Other Provider Active Cinthia Rae MD Other Provider Active Ramón Ayala MD Other Provider Active Flavio Ramirez MD Other Provider Active Pily Winslow , [facility]- Other Provider Active Adelaide Leonardo MD Other [...] Active Benson Lane MD Attending Provider Active [employer] Relationship Specialty Start Date End Date Bro Sanford MD PCP - General Family Medicine 12/26/16 [employer] Relationship Specialty Start Date End Date Ebenezer Hopkins MD [address] [facility] [place] [address] PCP - General Psychiatry 04/26/23 Goals (unrecognized [...] BE BASED ON THE PRIMARY CLINICAL RECORDS. [facility] [employer] [facility]. provides no warranty or guarantee of the accuracy or completeness of information in this document.
[2024-09-10 05:49] LABS: Basophils Percent Auto 0.4 % (0.2-2.0); Eosinophils Percent Auto 0.2 % (0.9-7.0); Hematocrit 38.8 % (42.0-54.0); Hemoglobin 12.4 g/dL (14.0-18.0); Immature Granulocytes Abs Auto 0.02 10^3/uL (0.00-0.03); Immature Granulocytes Pct Auto 0.4 % (0.0-0.5); Lymphocytes Percent Auto 18.6 % (20.5-60.0); Mean Corpuscular Hemoglobin 30.5 pg (25.9-34.0); Mean Corpuscular Volume 95.6 fL (80.0-94.0); Mean Platelet Volume 11.4 fL (9.5-13.5); Monocytes Absolute Auto 0.7 10^3/uL (0.3-0.8); Monocytes Percent Auto 12.2 % (1.7-12.0); Neutrophils Absolute Auto 3.7 10^3/uL (1.4-6.5); Neutrophils Percent Auto 68.2 % (43.0-75.0); Platelet Count 175 10^3/uL (150-450); Red Blood Count 4.06 10^6/uL (4.70-6.10); Red Cell Distribution Width 13.4 % (11.0-15.0); White Blood Count 5.4 10^3/uL (4.0-11.0)
[2024-09-10 06:10] LABS: Alanine Aminotransferase 39 U/L (16-63); Albumin Globulin Ratio 0.8; Albumin Level 3.1 g/dL (3.4-5.0); Alkaline Phosphatase 46 U/L (46-116); Aspartate Amino Transferase 38 U/L (15-37); BUN Creatinine Ratio 18.7; Bilirubin Total 0.3 mg/dL (0.2-1.0); Calcium 8.4 mg/dL (8.5-10.1); Carbon Dioxide 28.3 mmol/L (21.0-32.0); Chloride 108 mmol/L (98-107); Estimated GFR (African America >60 (>=60 mL/min/1.73m^2); Estimated GFR (Non-African Ame 51 (>=60 mL/min/1.73m^2); Glucose 118 mg/dL (74-106); Magnesium 1.9 mg/dL (1.8-2.4); Potassium 4.3 mmol/L (3.5-5.1); Sodium 144 mmol/L (136-145); Total Protein 7.1 g/dL (6.4-8.2)
--- OUTSIDE RECORDS SUMMARY | 2024-09-10 07:10 | XMS_ITS | CCD ---
Author Organization [facility] Care Team Providers Care Specialties Operator Name Role Phone Bro Sanford Primary Care Physician Unavailab Lior Dow Attending Physician Unavailable MD Genesis Reynolds Primary Care Provider [phone] MD Segundo Huston Emergency Provider MD [...] Provider MD Flavio Ramirez Other Provider Goldy [facility] Pily Espinal Other Provider [phone] MD Adelaide Leonardo Other Provider MD Itzel Adams Referring Provider MD Genesis Reynolds Primary Care Provider MD [address] S Attending Provider [phone] ELIOT VILLANUEVALAS Admitting [...] Genesis M Primary Care Unavailable Claribel LEE, rBo Barry Primary Care Provider EBENEZER HOPKINS Referring [...] GENESIS M Primary Care Unavailable [facility] Unavailabl e Allergies Allergy Classification Reported Allergen(s) Allergy Type Date of Onset Reaction(s) Facility (6 sources) Amitriptyline; Translations: [Amitriptyline] Drug Allergy 05-18-20 14 Unknown Reaction [facility] (12 sources) atorvastatin; Translations: [atorvastatin] Drug Allergy 01-24-20 19 Unknown Reaction, Unknown [facility] (6 sources) chlordiazePOXIDE; Translations: [chlordiazepoxide] Drug Allergy 01-24-20 19 Unknown Reaction [facility] (6 sources) clidinium; Translations: [clidinium] Drug Allergy 01-24-20 19 Unknown Reaction [facility] (16 sources) fentaNYL; Translations: [Fentanyl] Drug Allergy 12-27-19 17 Unknown Reaction, Unknown [facility] (9 sources) venlafaxine; Translations: [venlafaxine] Drug Allergy 05-13-20 14 Other (See Comments) [facility] (4 sources) Citalopram; Translations: [Citalopram] Drug Allergy 01-11-20 21 Unknown Reaction [facility] (4 sources) Simvastatin; Translations: [simvastatin] Drug Allergy 07-17-20 22 Unknown Reaction [facility] (7 sources) Succinylcholine; Translations: [Succinylcholine] Drug Allergy 09-08-20 04 Unknown Reaction [facility] (7 sources) Amitriptyline; Translations: [Elavil] Drug Allergy 04-20-20 14 Unknown [facility] (6 sources) chlordiazePOXIDE / clidinium Drug Allergy Unknown [facility] Other (7 sources) venlafaxine; Translations: [Effexor] Drug Allergy 04-06-20 14 Unknown [facility] (1 source) buPROPion Drug Allergy [facility] (1 source) Citalopram Drug Allergy 12-31-19 20 [facility] (1 source) mirabegron Drug Allergy [facility] (1 source) Simvastatin Drug Allergy [facility] (1 source) tiZANidine Drug Allergy [facility] (1 source) Amitriptyline Drug Allergy 05-18-[address] [facility] [employer] Work Phone: (1 source) metFORMIN; Translations: [METFORMIN] [...] 11, 2018 11:00pm December 23, 2018 4:29pm [id number] 200 actuat albuterol 0.09 mg/actuat metered dose [...] tablet by mouth twice daily Hydrocodone-Aceta minophen ([place]) 5-325 mg tablet Discontinued 1 TAB PO [...] Coronary arteriosclerosis; Translations: [Atherosclerotic heart disease of [place] coronary artery without angina pectoris] Onset: 11-25-2014 [...] 12-26-2016 Chronic Other aftercare (1 source) Other penitentiary (current) drug therapy; Translations: [OTH ASSISTED CURRENT DRUG THERAPY] Onset: 01-21-2023 Episodic Other aftercare (1 source) detention (current) use of antithrombotics/antip latelets; Translations: [PHOSPHORIC ACID OPERATOR 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/ANTIPLAT LETS] Onset: 12-20-2022 Episodic Other circulatory [...] Episodic Other aftercare (1 source) 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 The caroline hayes was examined and there are no changes to the H&P. [facility] NURSNOTEon 02-25-2024 NURSNOTTariq RN educated pt on d/ c instructions. RN encouraged pt to voice any questions or concerns. Pt verbalizes no questions or concerns at this time. Pt was wheeled off of unit with all of belongings. [facility] Orders Onlyon 02-20-2024 Orders Only [id number] Pedro Luis Mcclellan ph 1955 M Date Provider Department Center 02/20/2024 ZANDRA TEJADA [facility] [place] [facility] Family History Problem Relation Age of Onset No Known Problems Mother No Known Problems Father Family Status - Relation Status Age at Mother Father Normal [facility] HPon 02-17-2024 [facility] Cardiology Clinic Note Chief Complaint: New patient here to establish care. Ref from Dr. Reynolds for abnormal stress test. 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 Stress test was [...] catheterization. I will not be in the [employer] for the next 3 to 4 weeks; [...] therapy, moder (more content not included)... Normal [facility] Office Visiton 02-17-2024 Follow-up visit [id number] LemueltariqPedro Luis ph J 1955 M Date Provider Department [place] 02/17/2024 MITZY AMEZCUA Family History Problem Relation Age of Onset No Known Problems Mother No Known Problems Father Family Status - Relation Status Age at Mother Father Level of Service:02025 MS OFFICE/OUTPATIENT [facility] HIGH MDM 60 MINUTES Normal [facility] Orders Onlyon 02-17-2024 Orders Only [id number] Pedro Luis Mcclellan ph J 1955 M Date Provider Department [place] 02/17/2024 DIRK JARA CARD [facility] Family History Problem Relation Age of Onset No Known Problems Mother No Known Problems Father Family Status - Relation Status Age at Mother Father Normal [facility] Urinalysis w/ Microon 2023 Bacteria TRACE Abnormal NONE [facility] Comment on above: Performed By: #### U AMIC #### [facility] [address] [place] [address] Slitter Creaser Slotter Operator: Sarai Howell MD Bilirubin, SemiQt,Ur Negative Normal NEG [facility] Comment on above: Performed By: #### U AMIC #### [facility] [address] [place] [address] Slitter Creaser Slotter Operator: Sarai Howell MD Blood, Urine Negative Normal NEG [facility] Comment on above: Performed By: #### U AMIC #### [facility] [address] [place] [address] Slitter Creaser Slotter Operator: Sarai Howell MD Clarity (U) Clear Normal CLEAR [facility] Comment on above: Performed By: #### U AMIC #### [facility] [address] [place], [place] [address] Sl[employer] Cre[employer] Slotter Operator: Sarai Howell MD Color (U) Yellow Normal YEL [facility] Comment on above: Performed By: #### U AMIC #### [facility] [address] [place], [place] [address] Slitter Cre[employer] Slotter Operator: Sarai Howell MD Epithelial cells LM Ql (Urine sed) 0 TO 2 Normal 0-5 [facility] Comment on above: Performed By: #### U AMIC #### [facility] [address] [place], [place] [address] Slitter Cre[employer] Slotter Operator: Sarai Howell MD Glucose Ql (U) Negative Normal NEG [facility] Comment on above: Performed By: #### U AMIC #### [facility] [address] [place] [address] [place], [place] [id number] Slitter Creaser Slotter Operator: Sarai Howell MD Ketones Ql (U) Negative Normal NEG [facility] Comment on above: Performed By: #### U AMIC #### [facility] [address] [place] [address] [place], [place] [phone] Slitter Creaser Slotter Operator: Sarai Howell MD Leukocyte esterase Test strip Ql (U) Negative Normal NEG [facility] Comment on above: Performed By: #### U AMIC #### [facility] [address] [place], [place] [address] Slitter Cre[employer] Slotter Operator: Sarai Howell MD Mucus Strands TRACE Abnormal NONE [facility] Comment on above: Performed By: #### U AMIC #### [facility] [address] [place], [place] [address] Slitter Creaser Slotter Operator: Sarai Howell MD Nitrite,Ur Negative Normal [facility] Comment on above: Performed By: #### U AMIC #### [facility] [address] [place], [place] [address] Slitter Creaser Slotter Operator: Sarai Howell MD PH,Ur 7.0 Normal 5.0-9.0 [facility] Comment on above: Performed By: #### U AMIC #### [facility] [address] [place], [place] [address] Slitter Creaser Slotter Operator: Sarai Howell MD Protein Ql (U) Negative Normal NEG [facility] Comment on above: Performed By: #### U AMIC #### [facility] [address] [place], [place] [address] Slitter Creaser Slotter Operator: Sarai Howell MD Spec. [place],Ur 1.015 Normal 1.010-1.02 0 [facility] Comment on above: Performed By: #### U AMIC #### [facility] [address] [place] [address] [place], [place] [id number] Slitter Creaser Slotter Operator: Sarai Howell MD Urine RBC's 0 TO 2 Normal 0-2 [facility] Comment on above: Performed By: #### U AMIC #### [facility] [address] [place] [address] [place], [place] 3629383 Sl[employer] Cre[employer] Slotter Operator: Sarai Howell MD Urine WBC's 2 TO 5 Normal 0-5 [facility] Comment on above: Performed By: #### U AMIC #### [facility] [address] [place] [address] [place], [place] [phone] Sl[employer] Cre[employer] Slotter Operator: Sarai Howell MD Urobilinogen,Ur Normal Normal 0.0-1.0 [facility] Comment on above: Performed By: #### U AMIC #### [facility] [address] [place], [place] [address]188[address] Slitter Creaser Slotter Operator: Sarai Howell MD Urinalysis with Microscopico n 11-10-2023 Bacteria LM Ql (Urine sed) TRACE Abnormal None [facility] Bilirubin Ql (U) Negative NEGATIVE [facility] Clarity (U) Clear Clear [facility] Color (U) Yellow Yellow [facility] Epithelial cells LM.HPF (Urine sed) [#/Area] 0 TO 2 [facility] Glucose Test strip (U) [Mass/Vol] Negative NEGATIVE mg/dL [facility] Hemoglobin Auto test strip Ql (U) Negative NEGATIVE [facility] Interpretation and review of laboratory results Abnormal [facility] Ketones (U) [Mass/Vol] Negative NEGAT MELISSA mg/dL [facility] Leukocyte esterase Test strip Ql (U) Negative NEGATIVE [facility] Mucus Ql (Urine sed) TRACE Abnormal None [facility] Nitrite Ql (U) Negative NEGATIVE [facility] pH (U) 7.0 [pH] 5.0 - 9.0 [facility] Protein (U) [Mass/Vol] Negative NEGAT MELISSA mg/dL [facility] RBC LM.HPF (Urine sed) [#/Area] 0 TO 2 [facility] Specific gravity (U) [Rel density] 1.015 1.010 - 1.020 [facility] Urobilinogen Qn (U) Normal 0.0 - 1. 0 EU/dL [facility] WBC LM.HPF (Urine sed) [#/Area] 2 TO 5 [facility] Cult, Bloodon 04-30-2023 Cult, Blood Specimen Description .BLOOD Special Requests lhand, 9ml, 2 bottles Culture NO GROWTH 5 DAYS Report Status FINAL 04/30/2023 [facility] Comment on above: Performed By: #### B CUL2 #### [facility] [address] [place] [address] Slitter Creaser Slotter Operator: Sarai Howell MD Cult,Bloodon 04-30-2023 Cult,Blood Specimen Description .BLOOD Special Requests LAC, 20ML Culture NO GROWTH 5 DAYS Report Status FINAL 04/30/2023 [facility] Comment on above: Performed By: #### B C #### [facility] [address] [place] [address] Slitter Creaser Slotter Operator: Sarai Howell MD Lipid Profileon 04-26-2023 Cholesterol [Mass/Vol] 171 mg/dL Normal <200 [facility] Comment on above: Result Comment: Cholesterol Guidelines: <200 Desirable 200-240 Borderline >240 Undesirable Performed By: #### L IPR #### [address] [address] Slitter Creaser Slotter Operator: Spencer Tapia MD Cholesterol in HDL [Mass/Vol] 30 mg/dL Low >40 [facility] Comment on above: Result Comment: HDL Guidelines: <40 Undesirable 40-59 Borderline >59 Desirable Performed By: #### L IPR #### [address] [address] Slitter Cre[employer] Slotter Operator: Spencer Tapia MD Cholesterol in LDL [Mass/Vol] 112 mg/dL Normal 0-130 [facility] Comment on above: Result Comment: LDL Guidelines: <100 Desirable 100-129 Near to/above Desirable 130-159 Borderline >159 Undesirable Direct (measured) LDL and calculated LDL are not interchangeable tests. Performed By: #### L IPR #### [address] [address] Slitter Cre[employer] Slotter Operator: Spencer Tapia MD Cholesterol.total/Chol esterol in HDL [Mass ratio] 5.7 {ratio} High <5 [facility] Comment on above: Performed By: #### L IPR #### [address] [address] Sl[employer] Cre[employer] Slotter Operator: Spencer Tapia MD Triglyceride [Mass/Vol] 143 mg/dL Normal <150 [facility] Comment on above: Result Comment: Triglyceride Guidelines: <150 Desirable 150-199 Borderline 200-499 High >499 Very high Based on AHA Guidelines for fasting triglyceride, June 2012. Performed By: #### L IPR #### [address] [address] Slitter Cre[employer] Slotter Operator: Spencer Tapia MD Basic Metabolic Profon 04-25 Anion gap [Moles/Vol] 13 mmol/L Normal 9-17 [facility] Comment on above: Performed By: #### T JAMIE, ANJALI, BMP #### [facility] [address] [place], [place] [address] Slitter Creaser Slotter Operator: Sarai Howell MD BUN/CRE Ratio 14 Normal 9-20 [facility] Comment on above: Performed By: #### T ANJALI AYALA, BMP #### [facility] [address] [place], [place] [address] Sl[employer] Cre[employer] Slotter Operator: Sarai Howell MD Calcium [Mass/Vol] 9.3 mg/dL Normal 8.6-10.4 [facility] Comment on above: Performed By: #### T ANJALI AYALA, BMP #### [facility] [address] [place], [place] [address] Slitter Creaser Slotter Operator: Sarai Howell MD Chloride [Moles/Vol] 101 mmol/L Normal 98-107 [facility] Comment on above: Performed By: #### ANJALI PRADHAN, BMP #### [facility] [address] [place], [place] [address] Sl[employer] Cre[employer] Slotter Operator: Sarai Howell MD CO2 [Moles/Vol] 25 mmol/L Normal 20-31 [facility] Comment on above: Performed By: #### T ANJALI AYALA, BMP #### [facility] [address] [place], [place] [address] Sl[employer] Cre[employer] Slotter Operator: Sarai Howell MD Creatinine [Mass/Vol] 1.3 mg/dL High 0.7-1.2 [facility] Comment on above: Performed By: #### T ANJALI AYALA, BMP #### [facility] [address] [place] [address] Slitter Creaser Slotter Operator: Sarai Howell MD GFR/1.73 sq M.predicted among non-blacks MDRD (S/P/Bld) [Vol rate/Area] mL/min/{1.73_m2} Normal >60 [facility] Comment on above: Result Comment: These [...] #### [facility] [address] [place], [place] [address]68[address] Sl[employer] Cre[employer] Slotter Operator: Sarai Howell MD Glucose [Mass/Vol] 87 mg/dL Normal 70-99 [facility] Comment on above: Performed By: #### T ANJALI AYALA, BMP #### [facility] [address] [place], [place] [address]29383 Sl[employer] Cre[employer] Slotter Operator: Sarai Howell MD Potassium [Moles/Vol] 3.9 mmol/L Normal 3.7-5.3 [facility] Comment on above: Performed By: #### ANJALI PRADHAN, BMP #### [facility] [address] [place] [address] [place], [place] [phone] Sl[employer] Cre[employer] Slotter Operator: Sarai Howell MD Sodium [Moles/Vol] 139 mmol/L Normal 135-144 [facility] Comment on above: Performed By: #### ANJALI PRADHAN, BMP #### [address] [place] [address] Slitter Creaser Slotter Operator: Sarai Howell MD Urea nitrogen [Mass/Vol] 18 mg/dL Normal 8-23 [facility] Comment on above: Performed By: #### ANJALI PRADHAN, BMP #### [facility] [address] [place], [place] [phone] Sl[employer] Cre[employer] Slotter Operator: Sarai Howell MD CBC with Diffon 04-25-2023 Abs. Basophil 0.04 k/uL Normal 0.00-0.20 [facility] Comment on above: Performed By: #### ANJALI PRADHAN, BMP #### [facility] [address] [place] [address] Slitter Cre[employer] Slotter Operator: Sarai Howell MD Abs.Imm.Granulocyte 0.04 k/uL Normal 0.00-0.30 [facility] Comment on above: Performed By: #### ANJALI PRADHAN, BMP #### [address] [place] [address] Sl[employer] Cre[employer] Slotter Operator: Sarai Howell MD Abs.Neutrophil (Seg) 5.64 k/uL Normal 1.50-8.10 [facility] Comment on above: Performed By: #### ANJALI PRADHAN, BMP #### [address] [place] [address] Sl[employer] Cre[employer] Slotter Operator: Sarai Howell MD Basophils/100 WBC (Bld) 1 % Normal 0-2 [facility] Comment on above: Performed By: #### ANJALI PRADHAN, BMP #### [address] [place] [address] Slitter Creaser Slotter Operator: Sarai Howell MD Eosinophils (Bld) [#/Vol] 0.09 10*3/uL Normal 0.00-0.44 [facility] Comment on above: Performed By: #### ANJALI PRADHAN, BMP #### [address] [place] [address] Slitter Creaser Slotter Operator: Sarai Howell MD Eosinophils/100 WBC (Bld) 1 % Normal 1-4 [facility] Comment on above: Performed By: #### ANJALI PRADHAN, BMP #### [address] [place] [address] Sl[employer] Cre[employer] Slotter Operator: Sarai Howell MD Erythrocyte distribution width (RBC) [Ratio] 15.4 % High 11.8-14.4 [facility] Comment on above: Performed By: #### ANJALI PRADHAN, BMP #### [address] [place] [address] Slitter Cre[employer] Slotter Operator: Sarai Howell MD Hematocrit (Bld) [Volume fraction] 40.6 % Low 40.7-50.3 [facility] Comment on above: Performed By: #### ANJALI PRADHAN, BMP #### [facility] [address] [place], [place] [phone] Slitter Cre[employer] Slotter Operator: Sarai Howell MD Hemoglobin (Bld) [Mass/Vol] 13.1 g/dL Normal 13.0-17.0 [facility] Comment on above: Performed By: #### ANJALI PRADHAN, BMP #### [facility] [address] [place], [place] [address] Sl[employer] Cre[employer] Slotter Operator: Sarai Howlel MD Immature granulocytes/100 WBC (Bld) 1 % High 0 [facility] Comment on above: Performed By: #### ANJALI PRADHAN, BMP #### [address] [place], [place] [address] Sl[employer] Cre[employer] Slotter Operator: Sarai Howell MD Lymphocytes (Bld) [#/Vol] 1.86 10*3/uL Normal 1.10-3.70 [facility] Comment on above: Performed By: #### ANJALI PRADHAN, BMP #### [address] [place], [place] [address] Sl[employer] Cre[employer] Slotter Operator: Sarai Howell MD Lymphocytes/100 WBC (Bld) 22 % Low 24-43 [facility] Comment on above: Performed By: #### ANJALI PRADHAN, BMP #### [facility] [address] [place], [place] [address] Sl[employer] Cre[employer] Slotter Operator: Sarai Howell MD MCH (RBC) [Entitic mass] 29.0 pg Normal 25.2-33.5 [facility] Comment on above: Performed By: #### ANJALI PRADHAN, BMP #### [facility] [address] [place], [place] [address]26[address] Slitter Creaser Slotter Operator: Sarai Howell MD MCHC (RBC) [Mass/Vol] 32.3 g/dL Normal 28.4-34.8 [facility] Comment on above: Performed By: #### ANJALI PRADHAN, BMP #### [facility] [address] [place], [place] [address] Slitter Creaser Slotter Operator: Sarai Howell MD MCV (RBC) [Entitic vol] 89.8 fL Normal 82.6-102.9 [facility] Comment on above: Performed By: #### ANJALI PRADHAN, BMP #### [facility] [address] [place], [place] [address] Sl[employer] Cre[employer] Slotter Operator: Sarai Howell MD Monocytes (Bld) [#/Vol] 0.83 10*3/uL Normal 0.10-1.20 [facility] Comment on above: Performed By: #### ANJALI PRADHAN, BMP #### [address] [place], [place] 456[address]83 Sl[employer] Cre[employer] Slotter Operator: Sarai Howell MD Monocytes/100 WBC (Bld) 10 % Normal 3-12 [facility] Comment on above: Performed By: #### ANJALI PRADHAN, BMP #### [address] [place], [place] [address]69783 Sl[employer] Cre[employer] Slotter Operator: Sarai Howell MD Neutrophil (Seg) 65 % Normal 36-65 [facility] Comment on above: Performed By: #### ANJALI PRADHAN, BMP #### [address] [place], [place] [address]83 Slitter Creaser Slotter Operator: Sarai Howell MD NRBC Automated 0.0 per 100 WBC Normal 0.0 [facility] Comment on above: Performed By: #### ANJALI PRADHAN, BMP #### [address] [place], [place] [address]23483 Sl[employer] Cre[employer] Slotter Operator: Sarai Howell MD Platelet mean volume (Bld) [Entitic vol] 11.9 fL Normal 8.1-13.5 [facility] Comment on above: Performed By: #### T ANJALI AYALA, BMP #### [facility] [address] [place], [place] [address]185[address] Sl[employer] Cre[employer] Slotter Operator: Sarai Howell MD Platelets (Bld) [#/Vol] 254 10*3/uL Normal 138-453 [facility] Comment on above: Performed By: #### T ANJALI AYALA, BMP #### [facility] [address] [place], [place] [address] Sl[employer] Cre[employer] Slotter Operator: Sarai Howell MD RBC (Bld) [#/Vol] 4.52 10*6/uL Normal 4.21-5.77 [facility] Comment on above: Performed By: #### T ANJALI AYALA, BMP #### [facility] [address] [place], [place] [address]296[address] Sl[employer] Cre[employer] Slotter Operator: Sarai Howell MD WBC (Bld) [#/Vol] 8.5 10*3/uL Normal 3.5-11.3 [facility] Comment on above: Performed By: #### ANJALI PRADHAN, BMP #### [facility] [address] [place] [address] Slitter Creaser Slotter Operator: Sarai Howell MD CT HEAD WO CONTRASTon [...] 2. No acute intracranial hemorrhage. Interpreted by: Basb Mae MD Signed by: Babs Mae MD 04/25/23 Final result Normal [facility] Flu A/B Ag Detectionon 04-25 Flu A Ag Detection Negative Normal NEG [facility] Comment on above: Result Comment: for Influenza A Antigen Performed By: #### F LUABA #### [address] [place] [address] Slitter Creaser Slotter Operator: Sarai Howell MD Flu B Ag Detection Negative Normal NEG [facility] [facility] Comment on above: Result Comment: for Influenza B Antigen. Performed By: #### F LUABA #### [address] [place] [address] Slitter Creaser Slotter Operator: Sarai Howell MD Lactic Acidon 04-25-2023 Lactate [Moles/Vol] 1.3 mmol/L Normal 0.5-2.2 [facility] Comment on above: Performed By: #### L ACTIC #### [address] [place] [address] Slitter Creaser Slotter Operator: Sarai Howell MD [id number] 04-25-2023 SARS-CoV-2 (COVID-19) RNA JOSÉ MIGUEL+probe Ql (Unsp spec) Not detected Normal NOTDET [facility] Comment on above: Result Comment: Rapid [...] management decisions. Fact sheet for Healthcare Providers: https://www.fda.gov/media/050593/download Fact sheet for Patients: https://www.fda.gov/media/667921/download Methodology: Isothermal Nucleic Acid Amplification Performed By: #### F LUABA #### [address] [place] [address] Slitter Creaser Slotter Operator: Sarai Howell MD Troponinon Troponin, High Sens 26 ng/L High 022 [facility] Comment on above: Result Comment: High Sensitivity Troponin values cannot be compared with other Troponin methodologies. Performed By: #### F LUABA #### [address] [place] [address] Slitter Creaser Slotter Operator: Sarai Howell MD Troponin, High Sens 27 ng/L High 022 [facility] Comment on above: Result Comment: High Sensitivity Troponin values cannot be compared with other Troponin methodologies. Performed By: #### T JAMIE, CDP, BMP #### [facility] [address] [place] [address] [place] [id number] Slitter Creaser Slotter Operator: Sarai Howell MD UA w/Reflex Cultureon 2022 Bilirubin, SemiQt,Ur SMALL Abnormal NEG [facility] Comment on above: Performed By: #### F LUABA #### [address] [place] [address] Slitter Creaser Slotter Operator: Sarai Howell MD Blood, Urine 3+ Abnormal NEG [facility] Comment on above: Performed By: #### F LUABA #### [facility] [address] [place], [place] [id number] Slitter Creaser Slotter Operator: Sarai Howell MD Clarity (U) Cloudy Abnormal CLEAR [facility] Comment on above: Performed By: #### F LUABA #### [facility] [address] [place], [place] [id number] Slitter Creaser Slotter Operator: Sarai Howell MD Color (U) Yellow Normal YEL [facility] Comment on above: Performed By: #### F LUABA #### [facility] [address] [place], [place] [id number] Slitter Creaser Slotter Operator: Sarai Howell MD Glucose Ql (U) Negative Normal NEG [facility] Comment on above: Performed By: #### F LUABA #### [facility] [address] [place], [place] [phone] Slitter Creaser Slotter Operator: Sarai Howell MD Ketones Ql (U) 1+ mg/dL Abnormal NEG [facility] Comment on above: Performed By: #### F LUABA #### [facility] [address] [place] [address] [place], [place] [phone] Slitter Creaser Slotter Operator: Sarai Howell MD Leukocyte esterase Test strip Ql (U) TRACE Abnormal NEG [facility] Comment on above: Performed By: #### F LUABA #### [facility] [address] [place], [place] [phone] Slitter Creaser Slotter Operator: Sarai Howell MD Nitrite,Ur Negative Normal NEG [facility] Comment on above: Performed By: #### F LUABA #### [facility] [address] [place], [place] [id number] Slitter Creaser Slotter Operator: Sarai Howell MD PH,Ur 6.0 Normal 5.0-9.0 [facility] Comment on above: Performed By: #### F LUABA #### [facility] [address] [place], [place] [phone] Slitter Creaser Slotter Operator: Sarai Howell MD Protein Ql (U) 1+ mg/dL Abnormal NEG [facility] Comment on above: Performed By: #### F LUABA #### [facility] [address] [place] [address] Slitter Creaser Slotter Operator: Sarai Howell MD Spec. [place],Ur >1.030 High 1.010-1.02 0 [facility] Comment on above: Performed By: #### F LUABA #### [facility] [address] [place], [place] [phone] Slitter Creaser Slotter Operator: Sarai Howell MD Urobilinogen,Ur Normal Normal 0.0-1.0 [facility] Comment on above: Performed By: #### F LUABA #### [address] [place], [place] [address]83 Slitter Creaser Slotter Operator: Sarai Howell MD Urinalysis,Microon 3 Bacteria 1+ Abnormal NONE [facility] Comment on above: Performed By: #### F LUABA #### [facility] [address] [place] [address] [place], [place] [phone] Slitter Creaser Slotter Operator: Sarai Howell MD Epithelial cells LM Ql (Urine sed) None Normal 0-5 [facility] Comment on above: Performed By: #### F LUABA #### [facility] [address] [place] [address] [place], [place] [phone] Slitter Creaser Slotter Operator: Sarai Howell MD Mucus Strands TRACE Abnormal NONE [facility] Comment on above: Performed By: #### F LUABA #### [facility] [address] [place] [address] [place] [address] Slitter Creaser Slotter Operator: Sarai Howell MD Urine RBC's 20 TO 50 Normal 0-2 [facility] Comment on above: Performed By: #### F LUABA #### [facility] [address] [place] [address] Slitter Creaser Slotter Operator: Sarai Howell MD Urine WBC's 2 TO 5 Normal 0-5 [facility] Comment on above: Performed By: #### F HENRY #### [facility] [address] [place] [address] Slitter Creaser Slotter Operator: Sarai Howell MD XR CHEST PORTABLEon 04-25-20 [...] Sarai Henson MD 04/25/23 Final result Normal [facility] BNPon 01-17-2023 Natriuretic peptide B (Bld) [Mass/Vol] 210.0 pg/mL Normal <=900.0 [facility] Comment on above: Performed By: #### B ASPHALT TAR AND GRAVEL ROOFER, CMADM, CMP ####[facility] [address] [place] [id number]. Donna Malone CARDIAC MJ ADMITon 023 CK [Catalytic activity/Vol] 67 U/L Normal 39-308 [facility] Comment on above: Performed By: #### B ASPHALT TAR AND GRAVEL ROOFER, CMADM, CMP ####[facility] [address] [place] [id number]. Donna Malone CK.MB [Mass/Vol] 2.51 ng/mL Normal <=3.60 [facility] Comment on above: Performed By: #### B ASPHALT TAR AND GRAVEL ROOFER, CMADM, CMP ####[facility] Mqu[address] [place] [id number]. Donna Malone HSTROP 9.2 pg/mL Normal 4.0-76.1 [facility] Comment on above: Result Comment: CUT- OFF POINTS HAVE BEEN ESTABLISHED BASED ON THE FOURTH UNIVERSAL DEFINITIONS OF MYOCARDIALINFARCTION. THE UPPER REFERENCE LIMIT (URL) OF TROPONIN, DEFINED THE 99TH PERCENTILE OFcTnI DISTRIBUTION IN A REFERENCE POPULATION, HAS BEEN CONFIRMED THE DECISION THRESHOLDFOR AK DIAGNOSIS. Performed By: #### B ASPHALT TAR AND GRAVEL ROOFER, CMADM, CMP ####[facility] [address] [place] [address]Dr. Donna Malone BINDU 68 ng/mL Normal 16-96 [facility] Comment on above: Performed By: #### B ASPHALT TAR AND GRAVEL ROOFER, CMADM, CMP ####[facility] [address]zb[address] [place] [address]Dr. Donna Malone CBC AUTO DIFFon 01-17-2023 BASO # 0.1 103/ul Normal 0.0-0.1 [facility] Comment on above: Performed By: #### C BC ####[facility] [address] [place], [place] [address]Dr. Donna Malone Basophils/100 WBC (Bld) 0.8 % Normal 0.2-2.0 [facility] Comment on above: Performed By: #### C BC ####[facility] [address] [place], [place] [address]Dr. Donna Malone EO # 0.1 103/ul Normal 0.0-0.7 [facility] Comment on above: Performed By: #### C BC ####[facility] [address] [place], [place] [address]Dr. Donna Malone Eosinophils/100 WBC (Bld) 1.4 % Normal 0.9-7.0 [facility] Comment on above: Performed By: #### C BC ####[facility] Z[address] [place], [place] [address]Dr. Donna Malone Erythrocyte distribution width (RBC) [Ratio] 14.6 % Normal 11.0-15.0 [facility] Comment on above: Performed By: #### C BC ####[facility] [address] [place], [place] [address]Dr. Donna Malone Hematocrit (Bld) [Volume fraction] 43.9 % Normal 42.0-54.0 [facility] Comment on above: Performed By: #### C BC ####[facility] [address] [place] [address]Dr. Donna Malone Hemoglobin (Bld) [Mass/Vol] 14.2 g/dL Normal 14.0-18.0 [facility] Comment on above: Performed By: #### C BC ####[facility] [address]beon[address] [place] [address]Dr. Donna Malone IG # 0.04 10e3/ul Critically high 0.00-0.03 [facility] Comment on above: Performed By: #### C BC ####[facility] Ow[address] [place], [place] [address]Dr. Donna Malone IG % 0.4 % Normal 0.0-0.5 [facility] Comment on above: Performed By: #### C BC ####[facility] [address] [place], [place] [address]Dr. Donna Malone LYMPH # 2.3 103/ul Normal 1.2-3.8 [facility] Comment on above: Performed By: #### C BC ####[facility] [address]fexov[address] [place], [place] [address]Dr. Donna Malone Lymphocytes/100 WBC (Bld) 25.4 % Normal 20.5-60.0 [facility] Comment on above: Performed By: #### C BC ####[facility] [address]lsq[address] [place], [place] [address]Dr. Donna Malone MANUAL DIFF REQ NO Normal [facility] Comment on above: Performed By: #### C BC ####[facility] [address]wr[address] [place], [place] [address]Dr. Donna Malone MCH (RBC) [Entitic mass] 29.6 pg Normal 25.9-34.0 [facility] Comment on above: Performed By: #### C BC ####[facility] [address] [place], [place] [address]Dr. Donna Malone MCHC (RBC) [Mass/Vol] 32.3 g/dL Normal 29.9-35.2 [facility] Comment on above: Performed By: #### C BC ####[facility] [address] [place] [phone]. Donna Malone MCV (RBC) [Entitic vol] 91.5 fL Normal 80.0-94.0 [facility] Comment on above: Performed By: #### C BC ####[facility] Xq[address]rtfoi[address] [place] [address]Dr. Donna Malone MONO # 0.7 103/ul Normal 0.3-0.8 [facility] Comment on above: Performed By: #### C BC ####[facility] Dgggrvuhra[address] [place] [address]Dr. Donna Faisal Monocytes/100 WBC (Bld) 7.5 % Normal 1.7-12.0 [facility] Comment on above: Performed By: #### C BC ####[facility] [address] [place], [place] [address]Dr. Donna Malone NEUT # 5.9 103/ul Normal 1.4-6.5 [facility] Comment on above: Performed By: #### C BC ####[facility] [address] [place], [place] [address]Dr. Rubyyvan Malone Neutrophils/100 WBC (Bld) 64.5 % Normal 43.0-75.0 [facility] Comment on above: Performed By: #### C BC ####[facility] [address] [place], [place] [address]Dr. Donna Faisal Platelet mean volume (Bld) [Entitic vol] 10.6 fL Normal 9.5-13.5 [facility] Comment on above: Performed By: #### C BC ####[facility] [address] [place], [place] [address]Dr. Donna Faisal PLT 296 103/ul Normal 150-450 [facility] Comment on above: Performed By: #### C BC ####[facility] Qmoml[address]uai[address] [place], [place] [address]Dr. Donna Malone RBC 4.80 106/ul Normal 4.70-6.10 [facility] Comment on above: Performed By: #### C BC ####[facility] [address] [place] [id number]. Donna Malone WBC 9.1 103/ul Normal 4.0-11.0 [facility] Comment on above: Performed By: #### C BC ####[facility] G[address] [place] [phone]. Donna Malone CT CSPINE WO CONon 3 CT CSPINE WO CON Normal [facility] CT HEAD WO CONon 3 CT HEAD WO CON Normal [facility] CT LSPINE WO CONon 3 CT LSPINE WO CON Normal [facility] PROF 14(COMP METB)on 023 Albumin [Mass/Vol] 3.3 g/dL Critically low 3.4-5.0 [facility] Comment on above: Performed By: #### B ASPHALT TAR [employer] GRAVEL ROOFER, CMADM, CMP ####[facility] Ax[address]ts[address] [place] [address]Dr. Donna Malone Albumin/Globulin [Mass ratio] 0.8 {ratio} Normal [facility] Comment on above: Performed By: #### B ASPHALT TAR AND GRAVEL ROOFER, CMADM, CMP ####[facility] E[address] [place] [address]Dr. Donna Malone ALP [Catalytic activity/Vol] 55 U/L Normal 46-116 [facility] Comment on above: Performed By: #### B ASPHALT TAR AND GRAVEL ROOFER, CMADM, CMP ####[facility] [address]qe[address] [place] [address]Dr. Donna Malone ALT [Catalytic activity/Vol] 15 U/L Critically low 16-63 [facility] Comment on above: Performed By: #### B ASPHALT TAR AND GRAVEL ROOFER, CMADM, CMP ####[facility] Fepkrjpiaj[address] [place] [address]Dr. Donna Malone Anion gap [Moles/Vol] 9.6 mmol/L Normal [facility] Comment on above: Performed By: #### B ASPHALT TAR AND GRAVEL ROOFER, CMADM, CMP ####[facility] Ibwftaf[address]374 [place] [address]Dr. Donna Malone AST [Catalytic activity/Vol] 14 U/L Critically low 15-37 [facility] Comment on above: Performed By: #### B ASPHALT TAR AND GRAVEL ROOFER, CMADM, CMP ####[facility] Svjfrtv[address]ae[address] [place] [address]Dr. Donna Malone Bilirubin [Mass/Vol] 0.2 mg/dL Normal 0.2-1.0 [facility] Comment on above: Performed By: #### B ASPHALT TAR AND GRAVEL ROOFER, CMADM, CMP ####[facility] Enwpdlewqj[address] [place] [address]Dr. Donna Malone Calcium [Mass/Vol] 8.6 mg/dL Normal 8.5-10.1 [facility] Comment on above: Performed By: #### B ASPHALT TAR AND GRAVEL ROOFER, CMADM, CMP ####[facility] [address]fz[address] [place], [place] [address]Dr. Donna Malone Chloride [Moles/Vol] 107 mmol/L Normal 98-107 [facility] Comment on above: Performed By: #### B ASPHALT TAR AND GRAVEL ROOFER, CMADM, CMP ####[facility] Fdfxxzop[address] [place], [place] [address]Dr. Donna Malone CO2 [Moles/Vol] 25.9 mmol/L Normal 21.0-32.0 [facility] Comment on above: Performed By: #### B ASPHALT TAR AND GRAVEL ROOFER, CMADM, CMP ####[facility] [address] [place], [place] [address]Dr. Donna Malone Creatinine [Mass/Vol] 1.12 mg/dL Normal 0.70-1.30 [facility] Comment on above: Performed By: #### B ASPHALT TAR AND GRAVEL ROOFER, CMADM, CMP ####[facility] Ggbneqwfev[address] [place] [address]Dr. Donna Malone EGFR-AF ZAMBIAN >60 Normal >=60 [facility] Comment on above: Performed By: #### B ASPHALT TAR AND GRAVEL ROOFER, CMADM, CMP ####[facility] Csebmaceqb[address]72 [place] [address]Dr. Donna Malone EGFR-NON AF ZAMBIAN >60 Normal >=60 [facility] Comment on above: Performed By: #### B ASPHALT TAR AND GRAVEL ROOFER, CMADM, CMP ####[facility] Pfuedknguf8457 [place] [address]Dr. Donna Malone Globulin (S) [Mass/Vol] 4.2 g/dL Normal [facility] Comment on above: Performed By: #### B ASPHALT TAR AND GRAVEL ROOFER, CMADM, CMP ####[facility] Jittmhfrjb4235 [place] [address]Dr. Donna Malone Glucose [Mass/Vol] 163 mg/dL Critically high 74-106 T [facility] Comment on above: Performed By: #### B ASPHALT TAR AND GRAVEL ROOFER, CMADM, CMP ####[facility] Itqdilfdlf1265 [place] [address]Dr. Donna Malone Potassium [Moles/Vol] 4.5 mmol/L Normal 3.5-5.1 [facility] Comment on above: Performed By: #### B ASPHALT TAR AND GRAVEL ROOFER, CMADM, CMP ####[facility] Xrxztuigcn7433 [place] [address]Dr. Donna Malone Protein [Mass/Vol] 7.5 g/dL Normal 6.4-8.2 [facility] Comment on above: Performed By: #### B ASPHALT TAR AND GRAVEL ROOFER, CMADM, CMP ####[facility] Atdvnmzcfv6382 [place] [address]Dr. Donna Malone Sodium [Moles/Vol] 138 mmol/L Normal 136-145 [facility] Comment on above: Performed By: #### B ASPHALT TAR AND GRAVEL ROOFER, CMADM, CMP ####[facility] Secyvpowmu[address] [place] [address]Dr. Donna Malone Urea nitrogen [Mass/Vol] 11.0 mg/dL Normal 7.0-18.0 [facility] Comment on above: Performed By: #### B ASPHALT TAR AND GRAVEL ROOFER, CMADM, CMP ####[facility] Rxaxrbqdqo3091 [place] [address]Dr. Donna Malone Urea nitrogen/Creatinine [Mass ratio] 9.8 mg/mg Normal [facility] Comment on above: Performed By: #### B ASPHALT TAR AND GRAVEL ROOFER, CMADM, CMP ####[facility] Ytnnqhfoyo8338 [place] [address]Dr. Donna Malone PROTIMEon 01-17-2023 INR Coag (PPP) [Relative time] 0.94 {INR} Normal [facility] Comment on above: Performed By: #### P TT, PT ####[facility] [address]kkcimczz[address] [place], [place] [address]Dr. Donna Malone INR GUIDELINES SEE BELOW Normal [facility] Comment on above: Result Comment: FLORESITA RED INR: 2.0 - 3.0 CONDITIONS NOT LISTED BELOW 2.5 - 3.5 FOR PROSTHETIC HEART VALVE REPLACEMENT 2.5 - 3.5 RECURRENT THROMBOSIS Performed By: #### P TT, PT ####[facility] Xotlyunbsd[address] [place], [place] [address]Dr. Donna Malone PT Coag (PPP) [Time] 10.0 s Normal 9.0-11.6 [facility] Comment on above: Performed By: #### P TT, PT ####[facility] Ddfprysrww[address] [place], [place] [address]Dr. Donna Malone PTTon 01-17-2023 aPTT Coag (Bld) [Time] 29.6 s Normal 22.3-36.2 [facility] Comment on above: Performed By: #### P TT, PT ####[facility] Kegyzobuji[address] [place], [place] [address]DrElizabeth Malone CBC AUTO DIFFon 11-17-2022 BASO # 0.0 103/ul Normal 0.0-0.1 [facility] Comment on above: Performed By: #### C BC ####[facility] Wccbdohxqe[address] [place], [place] [address]DrElizabeth Malone Basophils/100 WBC (Bld) 0.2 % Normal 0.2-2.0 [facility] Comment on above: Performed By: #### C BC ####[facility] [address]ef[address]zhz[address] [place], [place] [address]DrElizabeth Malone EO # 0.0 103/ul Normal 0.0-0.7 [facility] Comment on above: Performed By: #### C BC ####[facility] Gqjvastuww[address] [place], [place] [address]DrElizabeth Malone Eosinophils/100 WBC (Bld) 0.0 % Critically low 0.9-7.0 [facility] Comment on above: Performed By: #### C BC ####[facility] J[address]rviyirj[address] [place], [place] [address]DrElizabeth Malone Erythrocyte distribution width (RBC) [Ratio] 14.5 % Normal 11.0-15.0 [facility] Comment on above: Performed By: #### C BC ####[facility] Eumtzveusg[address] [place], [place] [address]DrElizabeth Malone Hematocrit (Bld) [Volume fraction] 39.6 % Critically low 42.0-54.0 [facility] Comment on above: Performed By: #### C BC ####[facility] Tbym[address]jyyhl[address] [place], [place] [address]DrElizabeth Malone Hemoglobin (Bld) [Mass/Vol] 13.3 g/dL Critically low 14.0-18.0 [facility] Comment on above: Performed By: #### C BC ####[facility] T[address]omscxgs[address] [place], [place] [address]Dr. Donna Malone IG # 0.06 10e3/ul Critically high 0.00-0.03 [facility] Comment on above: Performed By: #### C BC ####[facility] Y[address]ixeexyn[address] [place], [place] [address]DrElizabeth Malone IG % 0.5 % Normal 0.0-0.5 [facility] Comment on above: Performed By: #### C BC ####[facility] Xfypyclqzm[address] [place], [place] [address]DrElizabeth Malone LYMPH # 1.0 103/ul Critically low 1.2-3.8 [facility] Comment on above: Performed By: #### C BC ####[facility] A[address]iiiiolw[address] [place], [place] [address]DrElizabeth Malone Lymphocytes/100 WBC (Bld) 8.3 % Critically low 20.5-60.0 [facility] Comment on above: Performed By: #### C BC ####[facility] [address]xfjsow[address] [place], [place] [address]DrElizabeth Malone MANUAL DIFF REQ NO Normal [facility] Comment on above: Performed By: #### C BC ####[facility] [address]imqxaayr2703 [place] [address]DrElizabeth Malone MCH (RBC) [Entitic mass] 29.4 pg Normal 25.9-34.0 [facility] Comment on above: Performed By: #### C BC ####[facility] Aguxviujkn[address]270 [place] [address]DrElizabeth Malone MCHC (RBC) [Mass/Vol] 33.6 g/dL Normal 29.9-35.2 [facility] Comment on above: Performed By: #### C BC ####[facility] Mqtecscxfi[address] [place], [place] [address]DrElizabeth Malone MCV (RBC) [Entitic vol] 87.6 fL Normal 80.0-94.0 [facility] Comment on above: Performed By: #### C BC ####[facility] [address]zv[address] [place], [place] [address]DrElizabeth Malone MONO # 0.8 103/ul Normal 0.3-0.8 [facility] Comment on above: Performed By: #### C BC ####[facility] [address]mpvrf[address] [place], [place] [address]DrElizabeth Malone Monocytes/100 WBC (Bld) 6.6 % Normal 1.7-12.0 [facility] Comment on above: Performed By: #### C BC ####[facility] R[address]ivzn[address] [place], [place] [address]DrElizabeth Malone NEUT # 10.2 103/ul Critically high 1.4-6.5 [facility] Comment on above: Performed By: #### C BC ####[facility] X[address]vwwzbif[address] [place], [place] [address]DrElizabeth Malone Neutrophils/100 WBC (Bld) 84.4 % Critically high 43.0-75.0 [facility] Comment on above: Performed By: #### C BC ####[facility] [address]pxreknb[address] [place], [place] [address]DrElizabeth Malone Platelet mean volume (Bld) [Entitic vol] 11.5 fL Normal 9.5-13.5 [facility] Comment on above: Performed By: #### C BC ####[facility] Rxbzsbaywr[address] [place] [id number]. Donna Malone PLT 204 103/ul Normal 150-450 [facility] Comment on above: Performed By: #### C BC ####[facility] Wkzufuclcd[address] [place] [address]Dr. Donna Malone RBC 4.52 106/ul Critically low 4.70-6.10 [facility] Comment on above: Performed By: #### C BC ####[facility] Lyqdnpcxbc15[address] [place] [address]Dr. Donna Malone WBC 12.0 103/ul Critically high 4.0-11.0 [facility] Comment on above: Performed By: #### C BC ####[facility] Octrnuzirz4[address] [place] [address]Dr. Rubyyvan Malone MAGNESIUMon 11-17-2022 Magnesium [Mass/Vol] 1.9 mg/dL Normal 1.8-2.4 [facility] Comment on above: Performed By: #### C MP, MG ####[facility] Uewmxjisjd[address] [place] [address]Dr. Donna Faisal PROF 14(COMP METB)on 023 Albumin [Mass/Vol] 3.2 g/dL Critically low 3.4-5.0 [facility] Comment on above: Performed By: #### C MP, MG ####[facility] Nsqdlwlvwz9321 [place] [address]Dr. Donna Faisal Albumin/Globulin [Mass ratio] 1.0 {ratio} Normal [facility] Comment on above: Performed By: #### C MP, MG ####[facility] Krmwrqyhlt3421 [place] [address]Dr. Donna Malone ALP [Catalytic activity/Vol] 51 U/L Normal 46-116 [facility] Comment on above: Performed By: #### C MP, MG ####[facility] Mftpyflzbo7176 [place] [phone]. Donna Malone ALT [Catalytic activity/Vol] 16 U/L Normal 16-63 [facility] Comment on above: Performed By: #### C MP, MG ####[facility] Jrnqbscrrt5214 [place] [phone]. Donna Malone Anion gap [Moles/Vol] 14.7 mmol/L Normal Th e [facility] Comment on above: Performed By: #### C MP, MG ####[facility] Ekgbtnkfqo1007 [place] [address]Dr. Donna Malnoe AST [Catalytic activity/Vol] 24 U/L Normal 15-37 [facility] Comment on above: Performed By: #### C MP, MG ####[facility] Pkvzvfoarc[address] [place], [place] [address]Dr. Donna Malone Bilirubin [Mass/Vol] 0.5 mg/dL Normal 0.2-1.0 [facility] Comment on above: Performed By: #### C MP, MG ####[facility] Gwcquylgrv8551 [place] [address]Dr. Donna Malone Calcium [Mass/Vol] 8.6 mg/dL Normal 8.5-10.1 [facility] Comment on above: Performed By: #### C MP, MG ####[facility] Jerevjfjiu55[address] [place] [address]Dr. Donna Malone Chloride [Moles/Vol] 108 mmol/L Critically high 98-107 [facility] Comment on above: Performed By: #### C MP, MG ####[facility] Cutyntegml4499 [place] [phone]. Donna Malone CO2 [Moles/Vol] 21.6 mmol/L Normal 21.0-32.0 [facility] Comment on above: Performed By: #### C MP, MG ####[facility] Qskkdriohl[address] [place], [place] [address]Dr. Donna Malone Creatinine [Mass/Vol] 0.83 mg/dL Normal 0.70-1.30 [facility] Comment on above: Performed By: #### C MP, MG ####[facility] Sbglleqkic6516 [place] [phone]. Donna Malone EGFR-AF ZAMBIAN >60 Normal >=60 [facility] Comment on above: Performed By: #### C MP, MG ####[facility] Fwdloobzsx7556 [place] [phone]. Donna Malone EGFR-NON AF ZAMBIAN >60 Normal >=60 [facility] Comment on above: Performed By: #### C MP, MG ####[facility] Lgklprwctj3313 [place] [phone]. Donna Malone Globulin (S) [Mass/Vol] 3.2 g/dL Normal [facility] Comment on above: Performed By: #### C MP, MG ####[facility] Akzjxcwcte0835 [place] [address]Dr. Donna Malone Glucose [Mass/Vol] 162 mg/dL Critically high 74-106 [facility] Comment on above: Performed By: #### C MP, MG ####[facility] Ivfwjyraln2546 [place] [address]Dr. Donna Malone Potassium [Moles/Vol] 3.3 mmol/L Critically low 3.5-5.1 [facility] Comment on above: Performed By: #### C MP, MG ####[facility] Aeesvymrca8842 [place] [phone]. Donna Malone Protein [Mass/Vol] 6.4 g/dL Normal 6.4-8.2 [facility] Comment on above: Performed By: #### C MP, MG ####[facility] Mxnvhqhcpn3356 [place] [address]Dr. Donna Malone Sodium [Moles/Vol] 141 mmol/L Normal 136-145 [facility] Comment on above: Performed By: #### C MP, MG ####[facility] Pghuelndpp1439 [place] [address]Dr. Donna Malone Urea nitrogen [Mass/Vol] 12.0 mg/dL Normal 7.0-18.0 [facility] Comment on above: Performed By: #### C MP, MG ####[facility] Rsronrnsrj2428 [place] [address]Dr. Donna Malone Urea nitrogen/Creatinine [Mass ratio] 14.5 mg/mg Normal [facility] Comment on above: Performed By: #### C MP, MG ####[facility] Eepmnizfsr6571 [place] [address]Dr. Donna Faisal AMMONIAon 11-16-2022 Ammonia (P) [Mass/Vol] ug/dL Critically low 11-32 [facility] Comment on above: Performed By: #### A MM ####[facility] Oppxpfstxz224[address] [place], [place] [address]Dr. Donna Faisal CBC AUTO DIFFon 11-16-2022 BASO # 0.0 103/ul Normal 0.0-0.1 [facility] Comment on above: Performed By: #### C BC ####[facility] Jfxcoyqisb149[address] [place], [place] [address]Dr. Donna Malone Basophils/100 WBC (Bld) 0.2 % Normal 0.2-2.0 [facility] Comment on above: Performed By: #### C BC ####[facility] Bpkcjoowie[address] [place], [place] [address]Dr. Donna Faisal EO # 0.0 103/ul Normal 0.0-0.7 [facility] Comment on above: Performed By: #### C BC ####[facility] Pgxbwlcljg14[address] [place], [place] [address]Dr. Rubyyvan Malone Eosinophils/100 WBC (Bld) 0.0 % Critically low 0.9-7.0 [facility] Comment on above: Performed By: #### C BC ####[facility] Eonmqvfqul3382[address] [place], [place] [address]Dr. Donna Malone Erythrocyte distribution width (RBC) [Ratio] 14.4 % Normal 11.0-15.0 [facility] Comment on above: Performed By: #### C BC ####[facility] Iulbgmcoqs501[address] [place], [place] [address]Dr. Donna Malone Hematocrit (Bld) [Volume fraction] 38.6 % Critically low 42.0-54.0 [facility] Comment on above: Performed By: #### C BC ####[facility] Ttlmfapdmr9257 [place] [address]DrElizabeth Donna Faisal Hemoglobin (Bld) [Mass/Vol] 13.1 g/dL Critically low 14.0-18.0 [facility] Comment on above: Performed By: #### C BC ####[facility] Pruicscrxb5594 [place] [address]DrElizabeth Malone IG # 0.05 10e3/ul Critically high 0.00-0.03 [facility] Comment on above: Performed By: #### C BC ####[facility] Cdtgixqckl9[address] [place], [place] [address]DrElizabeth Malone IG % 0.5 % Normal 0.0-0.5 [facility] Comment on above: Performed By: #### C BC ####[facility] Uzzbuutpgq36[address] [place], [place] [address]DrElizabeth Malone LYMPH # 1.0 103/ul Critically low 1.2-3.8 [facility] Comment on above: Performed By: #### C BC ####[facility] Jhzccgkjlf23[address] [place], [place] [address]DrElizabeth Malone Lymphocytes/100 WBC (Bld) 10.8 % Critically low 20.5-60.0 [facility] Comment on above: Performed By: #### C BC ####[facility] Pturvzkgsi9624[address] [place], [place] [address]DrElizabeth Malone MANUAL DIFF REQ NO Normal [facility] Comment on above: Performed By: #### C BC ####[facility] Somhwojvqr[address] [place], [place] [address]DrElizabeth Malone MCH (RBC) [Entitic mass] 29.4 pg Normal 25.9-34.0 [facility] Comment on above: Performed By: #### C BC ####[facility] Sbomabvcxh0801 [place] [address]DrElizabeth Malone MCHC (RBC) [Mass/Vol] 33.9 g/dL Normal 29.9-35.2 [facility] Comment on above: Performed By: #### C BC ####[facility] Ijmrgprsfl4061 [place] [phone] Donna Malone MCV (RBC) [Entitic vol] 86.7 fL Normal 80.0-94.0 [facility] Comment on above: Performed By: #### C BC ####[facility] Gldhtyewkz9361 [place] [phone] Donna Faisal MONO # 0.4 103/ul Normal 0.3-0.8 [facility] Comment on above: Performed By: #### C BC ####[facility] Lvgmlemnki7635 [place] [address]Dr. Rubyyvan Malone Monocytes/100 WBC (Bld) 4.4 % Normal 1.7-12.0 [facility] Comment on above: Performed By: #### C BC ####[facility] Idvbvxuemq658[address] [place], [place] [address]Dr. Donna Malone NEUT # 7.9 103/ul Critically high 1.4-6.5 [facility] Comment on above: Performed By: #### C BC ####[facility] Twxwetpzxb364[address] [place], [place] [address]Dr. Rubyyvan Malone Neutrophils/100 WBC (Bld) 84.1 % Critically high 43.0-75.0 [facility] Comment on above: Performed By: #### C BC ####[facility] Opkfsbhhab[address] [place], [place] [address]Dr. Donna Faisal Platelet mean volume (Bld) [Entitic vol] 11.3 fL Normal 9.5-13.5 [facility] Comment on above: Performed By: #### C BC ####[facility] Mrxksczzrn[address] [place], [place] [address]Dr. Donna Malone PLT 201 103/ul Normal 150-450 [facility] Comment on above: Performed By: #### C BC ####[facility] Ngjgcugpyu7326 [place] [phone] Malone RBC 4.45 106/ul Critically low 4.70-6.10 [facility] Comment on above: Performed By: #### C BC ####[facility] Ldmmugljsm2147 [place] [address]Dr. Donna Malone WBC 9.3 103/ul Normal 4.0-11.0 [facility] Comment on above: Performed By: #### C BC ####[facility] Mmajyfqpas28[address] [place], [place] [address]Dr. Donna Malone GLYCOHEMOGLOBIN A1Con 2022 ADA RECOMMENDATION SEE BELOW Normal [facility] Comment on above: Result Comment: ADA RECOMMENDED LIMIT 4.0 - 6.0 ADA THERAPEUTIC TARGET < 7.0 ACTION SUGGESTED > 7.0 Performed By: #### A 1C ####[facility] Nutsrnsrsi06[address] [place], [place] [address]Dr. Donna Malone Glucose [Mass/Vol] 128 mg/dL Normal [facility] Comment on above: Performed By: #### A 1C ####[facility] Rarajszuzw[address] [place], [place] [address]Dr. Donna Malone HbA1c (Bld) [Mass fraction] 6.1 % Normal 4.5-6.2 [facility] Comment on above: Performed By: #### A 1C ####[facility] Whbroostcq8528[address] [place], [place] [address]Dr. Donna Malone MAGNESIUMon 11-16-2022 Magnesium [Mass/Vol] 1.8 mg/dL Normal 1.8-2.4 [facility] Comment on above: Performed By: #### C MP, MG ####[facility] Rzudaenzjd23[address] [place], [place] [address]Dr. Donna Malone POINT OF CARE GLUCOSEon 11-07 Glucose [Mass/Vol] 170 mg/dL Critically high 74-106 [facility] Comment on above: Performed By: #### P OCGLUC ####[facility] Ipxnyudfio7[address] [place], [place] [address]Dr. Donna Malone Glucose [Mass/Vol] 158 mg/dL Critically high 74-106 [facility] Comment on above: Performed By: #### P OCGLUC ####[facility] Hfgypxxnvb5157 [place] [address]Dr. Donna Malone Glucose [Mass/Vol] 176 mg/dL Critically high 74-106 [facility] Comment on above: Performed By: #### P OCGLUC ####[facility] Hcnphilyre4185 [place] [address]Dr. Donna Malone PROF 14(COMP METB)on 023 Albumin [Mass/Vol] 3.1 g/dL Critically low 3.4-5.0 [facility] Comment on above: Performed By: #### C MP, MG ####[facility] Mzpgozjfcl8829 [place] [address]Dr. Donna Malone Albumin/Globulin [Mass ratio] 0.9 {ratio} Normal [facility] Comment on above: Performed By: #### C MP, MG ####[facility] Oqazbzkrev9945 [place] [address]Dr. Donna Malone ALP [Catalytic activity/Vol] 52 U/L Normal 46-116 [facility] Comment on above: Performed By: #### C MP, MG ####[facility] Jaaexeoypg1439 [place] [address]Dr. Donna Malone ALT [Catalytic activity/Vol] 13 U/L Critically low 16-63 [facility] Comment on above: Performed By: #### C MP, MG ####[facility] Ssmyuipmxf9938 [place] [address]Dr. Donna Malone Anion gap [Moles/Vol] 15.7 mmol/L Normal [facility] Comment on above: Performed By: #### C MP, MG ####[facility] Iwmpevhvls1898 [place] [address]Dr. Donna Malone AST [Catalytic activity/Vol] 16 U/L Normal 15-37 [facility] Comment on above: Performed By: #### C MP, MG ####[facility] Zjavgkdsrf6000 [place] [address]Dr. Donna Malone Bilirubin [Mass/Vol] 0.5 mg/dL Normal 0.2-1.0 [facility] Comment on above: Performed By: #### C MP, MG ####[facility] Mzcgxpxcdf8505 [place] [address]Dr. Donna Malone Calcium [Mass/Vol] 8.6 mg/dL Normal 8.5-10.1 [facility] Comment on above: Performed By: #### C MP, MG ####[facility] Lizrfebefb6842 [place] [address]Dr. Donna Malone Chloride [Moles/Vol] 109 mmol/L Critically high 98-107 [facility] Comment on above: Performed By: #### C MP, MG ####[facility] Glxzcnpzab9499 [place] [address]Dr. Donna Malone CO2 [Moles/Vol] 21.7 mmol/L Normal 21.0-32.0 [facility] Comment on above: Performed By: #### C MP, MG ####[facility] Htxtgjcziy[address] [place], [place] [address]Dr. Donna Malone Creatinine [Mass/Vol] 0.99 mg/dL Normal 0.70-1.30 [facility] Comment on above: Performed By: #### C MP, MG ####[facility] Vmivhebeks[address] [place], [place] [address]Dr. Donna Malone EGFR-AF ZAMBIAN >60 Normal >=60 [facility] Comment on above: Performed By: #### C MP, MG ####[facility] Iyjvqgqyhk8526 [place] [address]Dr. Donna Malone EGFR-NON AF ZAMBIAN >60 Normal >=60 [facility] Comment on above: Performed By: #### C MP, MG ####[facility] Wpjyccbnrr4801 [place] [address]Dr. Donna Malone Globulin (S) [Mass/Vol] 3.3 g/dL Normal [facility] Comment on above: Performed By: #### C MP, MG ####[facility] Omcbfnufko0618 [place] [address]Dr. Donna Malone Glucose [Mass/Vol] 168 mg/dL Critically high 74-106 [facility] Comment on above: Performed By: #### C MP, MG ####[facility] Wcmrwmildz2910 [place] [address]Dr. Donna Malone Potassium [Moles/Vol] 3.4 mmol/L Critically low 3.5-5.1 [facility] Comment on above: Performed By: #### C MP, MG ####[facility] Chjirkezws3[address] [place], [place] [address]Dr. Donna Malone Protein [Mass/Vol] 6.4 g/dL Normal 6.4-8.2 [facility] Comment on above: Performed By: #### C MP, MG ####[facility] Jeavegdvpr515[address] [place], [place] [address]Dr. Donna Malone Sodium [Moles/Vol] 143 mmol/L Normal 136-145 [facility] Comment on above: Performed By: #### C MP, MG ####[facility] Dwgrwklqcv6625[address] [place], [place] [address]Dr. Donna Malone Urea nitrogen [Mass/Vol] 9.0 mg/dL Normal 7.0-18.0 [facility] Comment on above: Performed By: #### C MP, MG ####[facility] Jtwvkrviqr1392[address] [place], [place] [address]Dr. Donna Malone Urea nitrogen/Creatinine [Mass ratio] 9.1 mg/mg Normal [facility] Comment on above: Performed By: #### C MP, MG ####[facility] Ijrmpwcqfp39[address] [place], [place] [address]Dr. Donna Faisal XR CHEST 2 Von 11-16-2022 XR CHEST 2 V Normal [facility] AMMONIAon 11-15-2022 Ammonia (P) [Moles/Vol] 20 umol/L Normal 11-32 [facility] Comment on above: Performed By: #### A MM ####[facility] Psmrtlnwlu8[address] [place], [place] [address]Dr. Donna Faisal CBC AUTO DIFFon 11-15-2022 BASO # 0.0 103/ul Normal 0.0-0.1 [facility] Comment on above: Performed By: #### C BC ####[facility] Bphstiotql1644 [place] [phone]. Donna Malone Basophils/100 WBC (Bld) 0.5 % Normal 0.2-2.0 [facility] Comment on above: Performed By: #### C BC ####[facility] Deiqgfugzf6698 [place] [phone]. Donna Malone EO # 0.1 103/ul Normal 0.0-0.7 [facility] Comment on above: Performed By: #### C BC ####[facility] Ijzhxymysi07[address] [place], [place] [address]Dr. Donna Malone Eosinophils/100 WBC (Bld) 1.4 % Normal 0.9-7.0 [facility] Comment on above: Performed By: #### C BC ####[facility] Ofzzconifl825[address] [place], [place] [address]Dr. oDnna Malone Erythrocyte distribution width (RBC) [Ratio] 14.6 % Normal 11.0-15.0 [facility] Comment on above: Performed By: #### C BC ####[facility] Adblmncrvq[address] [place], [place] [address]Dr. Donna Malone Hematocrit (Bld) [Volume fraction] 36.8 % Critically low 42.0-54.0 [facility] Comment on above: Performed By: #### C BC ####[facility] Earnteudko[address] [place], [place] [address]Dr. Donna Malone Hemoglobin (Bld) [Mass/Vol] 12.1 g/dL Critically low 14.0-18.0 [facility] Comment on above: Performed By: #### C BC ####[facility] Razwecglnu[address] [place], [place] [address]Dr. Donna Malone IG # 0.01 10e3/ul Normal 0.00-0.03 [facility] Comment on above: Performed By: #### C BC ####[facility] Vcqajeooch[address] [place], [place] [address]Dr. Donna Malone IG % 0.2 % Normal 0.0-0.5 [facility] Comment on above: Performed By: #### C BC ####[facility] Qtxusmmcqh9898 [place] [phone]. Donna Malone LYMPH # 1.7 103/ul Normal 1.2-3.8 [facility] Comment on above: Performed By: #### C BC ####[facility] Sbhvihuuqh0096 [place] [phone]. Donna Malone Lymphocytes/100 WBC (Bld) 27.0 % Normal 20.5-60.0 [facility] Comment on above: Performed By: #### C BC ####[facility] Xjwryxdojz3523 [place] [phone]. Donna Faisal MANUAL DIFF REQ NO Normal [facility] Comment on above: Performed By: #### C BC ####[facility] Rqquxpbmyo8697 [place] [phone]. Donna Faisal MCH (RBC) [Entitic mass] 29.5 pg Normal 25.9-34.0 [facility] Comment on above: Performed By: #### C BC ####[facility] Njmvhwelho1369 [place] [phone]. Donna Malone MCHC (RBC) [Mass/Vol] 32.9 g/dL Normal 29.9-35.2 [facility] Comment on above: Performed By: #### C BC ####[facility] Hozjyoiyjb1333 [place] [phone]. Donna Malone MCV (RBC) [Entitic vol] 89.8 fL Normal 80.0-94.0 [facility] Comment on above: Performed By: #### C BC ####[facility] Vszhefyuqf0409 [place] [phone]. Donna Malone MONO # 0.4 103/ul Normal 0.3-0.8 [facility] Comment on above: Performed By: #### C BC ####[facility] Tgiaevwhmv1093 [place] [phone]. Donna Faisal Monocytes/100 WBC (Bld) 6.7 % Normal 1.7-12.0 [facility] Comment on above: Performed By: #### C BC ####[facility] Nrjpqtxaxd5254 [place] [phone]. Donna Malone NEUT # 4.0 103/ul Normal 1.4-6.5 [facility] Comment on above: Performed By: #### C BC ####[facility] Uwscqanhov7860 [place] [phone]. Donna Malone Neutrophils/100 WBC (Bld) 64.2 % Normal 43.0-75.0 [facility] Comment on above: Performed By: #### C BC ####[facility] Hgmzksdxfn7187 [place] [phone]. Donna Malone Platelet mean volume (Bld) [Entitic vol] 11.3 fL Normal 9.5-13.5 [facility] Comment on above: Performed By: #### C BC ####[facility] Agddfruhpq4222 [place] [phone]. Donna Malone PLT 169 103/ul Normal 150-450 [facility] Comment on above: Performed By: #### C BC ####[facility] Rmrtdpiryi6022 [place] [phone]. Donna Malone RBC 4.10 106/ul Critically low 4.70-6.10 [facility] Comment on above: Performed By: #### C BC ####[facility] Nonnpyjogz7234 [place] [phone]. Donna Malone WBC 6.3 103/ul Normal 4.0-11.0 [facility] Comment on above: Performed By: #### C BC ####[facility] Fhxvkpgjez4106 [place] [phone]. Donna Malone GLYCOHEMOGLOBIN A1Con 2022 ADA RECOMMENDATION SEE BELOW Normal [facility] Comment on above: Result Comment: ADA RECOMMENDED LIMIT 4.0 - 6.0 ADA THERAPEUTIC TARGET < 7.0 ACTION SUGGESTED > 7.0 Performed By: #### A 1C ####[facility] Uibdlnupos9022 [place] [phone]. Donna Malone Glucose [Mass/Vol] 128 mg/dL Normal [facility] Comment on above: Performed By: #### A 1C ####[facility] Nwuqqsrwgp2571 [place] [address]Dr. Donna Malone HbA1c (Bld) [Mass fraction] 6.1 % Normal 4.5-6.2 [facility] Comment on above: Performed By: #### A 1C ####[facility] Rmjkqgpmkd8927 [place] [address]Dr. Donna Malone MAGNESIUMon 11-15-2022 Magnesium [Mass/Vol] 1.6 mg/dL Critically low 1.8-2.4 [facility] Comment on above: Performed By: #### C MP, MG ####[facility] Utstqzobso[address] [place], [place] [address]Dr. Donna Malone POINT OF CARE GLUCOSEon Glucose [Mass/Vol] 165 mg/dL Critically high 74-106 [facility] Comment on above: Performed By: #### P OCGLUC ####[facility] Bxzalzjyvu19[address] [place], [place] [address]Dr. Donna Malone Glucose [Mass/Vol] 155 mg/dL Critically high 74-106 [facility] Comment on above: Performed By: #### P OCGLUC ####[facility] Azmnbnrhec00[address] [place], [place] [address]Dr. Donna Malone Glucose [Mass/Vol] 111 mg/dL Critically high 74-106 [facility] Comment on above: Performed By: #### P OCGLUC ####[facility] Kzdnrwussc7[address] [place], [place] [address]Dr. Donna Malone PROF 14(COMP METB)on 023 Albumin [Mass/Vol] 2.9 g/dL Critically low 3.4-5.0 [facility] Comment on above: Performed By: #### C MP, MG ####[facility] Zhzblupthg79[address] [place], [place] [address]Dr. Donna Malone Albumin/Globulin [Mass ratio] 1.0 {ratio} Normal [facility] Comment on above: Performed By: #### C MP, MG ####[facility] Yqspibuzww[address] [place], [place] [address]Dr. Donna Malone ALP [Catalytic activity/Vol] 38 U/L Critically low 46-116 [facility] Comment on above: Performed By: #### C MP, MG ####[facility] Bcbzwzqlyj[address] [place], [place] [address]Dr. Donna Malone ALT [Catalytic activity/Vol] 13 U/L Critically low 16-63 [facility] Comment on above: Performed By: #### C MP, MG ####[facility] Zewmiztcrc96[address] [place], [place] [address]Dr. Donna Malone Anion gap [Moles/Vol] 11.8 mmol/L Normal [facility] Comment on above: Performed By: #### C MP, MG ####[facility] Mbbctcrima[address] [address] [place], [place] [address]Dr. Donna Malone AST [Catalytic activity/Vol] 15 U/L Normal 15-37 [facility] Comment on above: Performed By: #### C MP, MG ####[facility] Ntdotdbrfl[address] [place], [place] [address]Dr. Donna Malone Bilirubin [Mass/Vol] 0.4 mg/dL Normal 0.2-1.0 [facility] Comment on above: Performed By: #### C MP, MG ####[facility] Gxlmajbjpq8548[address] [place], [place] [address]Dr. Donna Malone Calcium [Mass/Vol] 8.2 mg/dL Critically low 8.5-10.1 [facility] Comment on above: Performed By: #### C MP, MG ####[facility] Fdtwzpkwtp16[address] [place], [place] [address]Dr. Donna Malone Chloride [Moles/Vol] 111 mmol/L Critically high 98-107 [facility] Comment on above: Performed By: #### C MP, MG ####[facility] Gulbjbhqke7496[address] [place], [place] [address]Dr. Donna Malone CO2 [Moles/Vol] 27.9 mmol/L Normal 21.0-32.0 [facility] Comment on above: Performed By: #### C MP, MG ####[facility] Gdbujgolfs[address] [place] [address]Dr. Donna Malone Creatinine [Mass/Vol] 0.99 mg/dL Normal 0.70-1.30 [facility] Comment on above: Performed By: #### C MP, MG ####[facility] Ivtdvjilnq0[address] [place] [address]Dr. Donna Malone EGFR-AF ZAMBIAN >60 Normal >=60 [facility] Comment on above: Performed By: #### C MP, MG ####[facility] Xpvvxtgegn8698[address] [place], [place] [address]Dr. Donna Malone EGFR-NON AF ZAMBIAN >60 Normal >=60 [facility] Comment on above: Performed By: #### C MP, MG ####[facility] Gztdhuxbuy9205[address] [place], [place] [address]Dr. Donna Malone Globulin (S) [Mass/Vol] 2.9 g/dL Normal [facility] Comment on above: Performed By: #### C MP, MG ####[facility] Qkxnqlmbcg682[address] [place], [place] [address]Dr. Donna Malone Glucose [Mass/Vol] 88 mg/dL Normal 74-106 [facility] Comment on above: Performed By: #### C MP, MG ####[facility] Pxpropijwm8254[address] [place], [place] [address]Dr. Donna Malone Potassium [Moles/Vol] 3.7 mmol/L Normal 3.5-5.1 [facility] Comment on above: Performed By: #### C MP, MG ####[facility] Cazvsydnxr988[address] [place], [place] [address]Dr. Donna Malone Protein [Mass/Vol] 5.8 g/dL Critically low 6.4-8.2 [facility] Comment on above: Performed By: #### C MP, MG ####[facility] Qcvlltanfp4535[address] [place], [place] [address]Dr. Donna Malone Sodium [Moles/Vol] 147 mmol/L Critically high 136-145 [facility] Comment on above: Performed By: #### C MP, MG ####[facility] Nzbmvqopdh26[address] [place] [address]Dr. Donna Malone Urea nitrogen [Mass/Vol] 12.0 mg/dL Normal 7.0-18.0 [facility] Comment on above: Performed By: #### C MP, MG ####[facility] Pfdovscsyb5086[address] [place], [place] [address]Dr. Donna Malone Urea nitrogen/Creatinine [Mass ratio] 12.1 mg/mg Normal [facility] Comment on above: Performed By: #### C MP, MG ####[facility] Iosjglbqkp2095[address] [place], [place] [address]Dr. Donna Malone ACETONE SERUMon 11-14-2022 ACETONE Negative Normal NEGATIVE [facility] Comment on above: Performed By: #### A CETON ####[facility] Forqcndynr5428[address] [place], [place] [address]Dr. Donna Malone AMMONIAon 11-14-2022 Ammonia (P) [Moles/Vol] 17 umol/L Normal 11-32 [facility] Comment on above: Performed By: #### A MM ####[facility] Tqzibpjxrj6457[address] [place], [place] [address]Dr. Donna Malone BLOOD GASES BTYon 11-14-2022 02 MODE ROOM AIR Normal [facility] Comment on above: Performed By: #### A BG ####[facility] Isrdntmdte4579[address] [place], [place] [address]Dr. Donna Malone ALLENS TEST Positive Normal [facility] Comment on above: Performed By: #### A BG ####[facility] Xuzfxmkhkl3395[address] [place], [place] [address]Dr. Donna Malone Base excess Calc (Bld) [Moles/Vol] 1.1 mmol/L Normal -2.0-2.0 [facility] Comment on above: Performed By: #### A BG ####[facility] Sqqqkwdbjg17[address] [place], [place] [address]Dr. Donna Malone BIPAP PRESSURE Normal [facility] Comment on above: Performed By: #### A BG ####[facility] Zdqvfddoqz6367[address] [place], [place] [address]Dr. Donna Malone CPAP [facility] Comment on above: Performed By: #### A BG ####[facility] Dokjipyzex[address] [place] [address]Dr. Donna Malone FIO2 Normal [facility] Comment on above: Performed By: #### A BG ####[facility] Oznyktzxyq5123 [place] [address]Dr. Donna Malone HCO3 (Bld) [Moles/Vol] 26.0 mmol/L Normal 22.0-26.0 [facility] Comment on above: Performed By: #### A BG ####[facility] Imgsjaiily702[address] [place], [place] [address]Dr. Donna Malone LPM [facility] Comment on above: Performed By: #### A BG ####[facility] Uidxfxsyso748[address] [place], [place] [address]Dr. Donna Malone MINUTE VOLUME [facility] Comment on above: Performed By: #### A BG ####[facility] Atfbdjficf1934[address] [place], [place] [address]Dr. Donna Malone Oxygen (Bld) [Partial pressure] 62.0 mm[Hg] Critically low 80.0-100.0 [facility] Comment on above: Performed By: #### A BG ####[facility] Spnhbofarw2933[address] [place], [place] [address]Dr. Donna Malone Oxygen saturation in Blood 91.9 % Critically low 95.0-100.0 [facility] Comment on above: Performed By: #### A BG ####[facility] Odgdhojrun0783[address] [place], [place] [address]Dr. Donna Malone PCO2 42.8 mmHg Normal 35.0-45.0 [facility] Comment on above: Performed By: #### A BG ####[facility] Dgxymcpegz767[address] [place], [place] [address]Dr. Donna Malone PEEP [facility] Comment on above: Performed By: #### A BG ####[facility] Tatffdyssa3225[address] [place], [place] [address]Dr. Donna Malone pH (Bld) 7.392 [pH] Normal 7.350-7.45 0 [facility] Comment on above: Performed By: #### A BG ####[facility] Khbibismqz84[address] [place] [address]Dr. Donna Malone PIP [facility] Comment on above: Performed By: #### A BG ####[facility] Vmbwfzdnoh3797 [place] [address]Dr. Donna Malone PS [facility] Comment on above: Performed By: #### A BG ####[facility] Tdgspolwjl5920 [place] [address]Dr. Donna Malone PUNCTURE SITE LR [facility] Comment on above: Performed By: #### A BG ####[facility] Cgbshuopsv5012[address] [place], [place] [address]Dr. Donna Malone RATE [facility] Comment on above: Performed By: #### A BG ####[facility] Abfnekszxz1627[address] [place], [place] [address]Dr. Donna Malone VENT MODE [facility] Comment on above: Performed By: #### A BG ####[facility] Ahfrbpszyv864[address] [place], [place] [address]Dr. Donna Malone [place] [facility] Comment on above: Performed By: #### A BG ####[facility] Uaktaxtcof9318[address] [place], [place] [address]Dr. Donna Malone BNPon 11-14-2022 Natriuretic peptide B (Bld) [Mass/Vol] 148.0 pg/mL Normal <=900.0 [facility] Comment on above: Performed By: #### B ASPHALT TAR AND GRAVEL ROOFER, CMP, HSTROPN ####[facility] Wdiylumqtt5493 [place] [address]Dr. Donna Malone CBC AUTO DIFFon 11-14-2022 BASO # 0.0 103/ul Normal 0.0-0.1 [facility] Comment on above: Performed By: #### C BC ####[facility] Vjmxfqcqsx348[address] [place], [place] [address]Dr. Donna Malone Basophils/100 WBC (Bld) 0.5 % Normal 0.2-2.0 [facility] Comment on above: Performed By: #### C BC ####[facility] Mnvetctivu1715 [place] [address]Dr. Donna Malone EO # 0.1 103/ul Normal 0.0-0.7 [facility] Comment on above: Performed By: #### C BC ####[facility] Edzmcwcbzb5395 [place] [address]Dr. Rubyyvan Malone Eosinophils/100 WBC (Bld) 0.6 % Critically low 0.9-7.0 [facility] Comment on above: Performed By: #### C BC ####[facility] Sahzwmaijx1336[address] [place], [place] [address]Dr. Rubyyvan Malone Erythrocyte distribution width (RBC) [Ratio] 14.8 % Normal 11.0-15.0 [facility] Comment on above: Performed By: #### C BC ####[facility] Zpabkwuzoh7973[address] [place], [place] [address]Dr. Rubyyvan Malone Hematocrit (Bld) [Volume fraction] 41.9 % Critically low 42.0-54.0 [facility] Comment on above: Performed By: #### C BC ####[facility] Xsaxyrvtcl64[address] [place], [place] [address]Dr. Donna Malone Hemoglobin (Bld) [Mass/Vol] 13.6 g/dL Critically low 14.0-18.0 [facility] Comment on above: Performed By: #### C BC ####[facility] Uwtsivyifv8767[address] [place], [place] [address]Dr. Rubyyvan Malone IG # 0.01 10e3/ul Normal 0.00-0.03 [facility] Comment on above: Performed By: #### C BC ####[facility] Tegoycgnlx336[address] [place], [place] [address]Dr. Donna Malone IG % 0.1 % Normal 0.0-0.5 [facility] Comment on above: Performed By: #### C BC ####[facility] Hfpwhoxcxc6666[address] [place], [place] [address]DrElizabeth Malone LYMPH # 1.7 103/ul Normal 1.2-3.8 [facility] Comment on above: Performed By: #### C BC ####[facility] Syqtpmqqon3567 [place] [address]Dr. Donna Malone Lymphocytes/100 WBC (Bld) 21.2 % Normal 20.5-60.0 [facility] Comment on above: Performed By: #### C BC ####[facility] Yuuecqgvwz2115 [place] [address]Dr. Donna Malone MANUAL DIFF REQ NO Normal [facility] Comment on above: Performed By: #### C BC ####[facility] Rndrvicajp5357 [place] [address]Dr. Donna Malone MCH (RBC) [Entitic mass] 29.2 pg Normal 25.9-34.0 [facility] Comment on above: Performed By: #### C BC ####[facility] Rrbjpnjrzq303[address] [place], [place] [address]Dr. Donna Malone MCHC (RBC) [Mass/Vol] 32.5 g/dL Normal 29.9-35.2 [facility] Comment on above: Performed By: #### C BC ####[facility] Qajnuhkkxb545[address] [place], [place] [address]Dr. Donna Malone MCV (RBC) [Entitic vol] 90.1 fL Normal 80.0-94.0 [facility] Comment on above: Performed By: #### C BC ####[facility] Hhuztwwbat6888[address] [place], [place] [address]Dr. Donna Malone MONO # 0.4 103/ul Normal 0.3-0.8 [facility] Comment on above: Performed By: #### C BC ####[facility] Qguobtdvue94[address] [place], [place] [address]Dr. Donna Malone Monocytes/100 WBC (Bld) 5.5 % Normal 1.7-12.0 [facility] Comment on above: Performed By: #### C BC ####[facility] Ptrxirecvx[address] [place], [place] [address]DrElizabeth Malone NEUT # 5.7 103/ul Normal 1.4-6.5 [facility] Comment on above: Performed By: #### C BC ####[facility] Vnmbvuwukd3418 [place] [address]Dr. Donna Malone Neutrophils/100 WBC (Bld) 72.1 % Normal 43.0-75.0 [facility] Comment on above: Performed By: #### C BC ####[facility] Xtwrkhjuir7197 [place] [address]Dr. Donna Faisal Platelet mean volume (Bld) [Entitic vol] 11.5 fL Normal 9.5-13.5 [facility] Comment on above: Performed By: #### C BC ####[facility] Jtwqwzfpeg4016 [place] [address]Dr. Donna Faisal PLT 193 103/ul Normal 150-450 [facility] Comment on above: Performed By: #### C BC ####[facility] Qeqffpsrwb7997 [place] [address]Dr. Donna Maloen RBC 4.65 106/ul Critically low 4.70-6.10 [facility] Comment on above: Performed By: #### C BC ####[facility] Vesmwyonyc220[address] [place], [place] [address]Dr. Donna Faisal WBC 7.9 103/ul Normal 4.0-11.0 [facility] Comment on above: Performed By: #### C BC ####[facility] Fmdiikxajf5397[address] [place], [place] [address]Dr. Donna Faisal CT HEAD WO CONon 11-14-2022 CT HEAD WO CON Normal [facility] CULTURE BLOODon 11-14-2022 Microscopic examination of blood, culture Culture Observations: NO GROWTH AT 5 DAYS. Normal [facility] Comment on above: Performed By: #### B LDCX2 ####[facility] Fhcuncdtja7[address] [place], [place] [address]Dr. Donna Faisal Microscopic examination of blood, culture Culture Observations: NO GROWTH AT 5 DAYS. Normal [facility] Comment on above: Performed By: #### B LDCX1 ####[facility] Fwbhrlcbjr04[address] [place], [place] [address]DrElizabeth Donna Malone Covid-19 PCR (CVDTB)on SARS-CoV-2 (COVID-19) RNA JOSÉ MIGUEL+probe Ql (Unsp spec) Not detected Normal NOT DETECTED [facility] Comment on above: Result Comment: When [...] for this test is supported by the [employer] and Human Service's declaration that [...] be used). Performed By: #### C VDTBH ####[facility] Dddwralmrx4731 [place] [id number]. Donna Malone DRUG SCREEN RAPID (URINE)on 11-14-2022 AMP Negative Normal NEGATIVE [facility] Comment on above: Performed By: #### D SHARONA, ERUR ####[facility] Haztatwxqg9815 [place] [id number]. Donna Malone BAR Negative Normal NEGATIVE [facility] Comment on above: Performed By: #### D SHARONA, ERUR ####[facility] Asagaxitya[address]013 [place] [id number]. yvan Malone BUP Negative Normal NEGATIVE [facility] Comment on above: Performed By: #### D SHARONA ERUR ####[facility] Ubimdzmvfo8464 [place] [id number]. Donna Malone BZO Negative Normal NEGATIVE [facility] Comment on above: Performed By: #### D SHARONA ERUR ####[facility] Zwbmqtcovv65[address] [place], [place] [address]Dr. Donna Malone EVONNE Negative Normal NEGATIVE [facility] Comment on above: Performed By: #### Calvin TABOR ERUR ####[facility] Akhvqojknn346[address] [place], [place] [address]Dr. Donna Malone CUT-OFFS SEE BELOW Normal [facility] Comment on above: Result Comment: AMP [...] ng/mL Performed By: #### Calvin TABOR ERUR ####[facility] Anjpfjdrxx086[address] [place], [place] [address]Dr. Donna Malone DRUG CUT HEADER DRUG CLASS TEST SYST EM CUT-OFF CONCENTRATIONS ARE FOLLOWS: Normal [facility] Comment on above: Performed By: #### WESLY LAUR ####[facility] Hhreubebrd5[address] [place], [place] [address]Dr. Donna Malone mAMP Negative Normal NEGATIVE [facility] Comment on above: Performed By: #### Calvin TABOR ERUR ####[facility] Jutjdlgqrk7[address] [place], [place] [address]Dr. Donna Malone MTD Negative Normal NEGATIVE [facility] Comment on above: Performed By: #### Calvin TABOR ERUR ####[facility] Oneyxxetfg785[address] [place], [place] [address]Dr. Donna Malone OPI Negative Normal NEGATIVE [facility] Comment on above: Performed By: #### WESLY LAUR ####[facility] Kmcnwlorqx2117[address] [place], [place] [address]Dr. Donna Malone OXY Negative Normal NEGATIVE [facility] Comment on above: Performed By: #### Calvin TABOR, ERUR ####[facility] Vdzdlmcxgx9602 [place] [address]Dr. Donna Malone PCP Negative Normal NEGATIVE [facility] Comment on above: Performed By: #### Calvin TABOR, ERUR ####[facility] Uobmkqauux7940 [place] [address]Dr. Donna Malone PPX Negative Normal NEGATIVE [facility] Comment on above: Performed By: #### Calvin TABOR, ERUR ####[facility] Rapqfzmakl2732 [place] [address]Dr. Donna Malone TCA Positive Abnormal NEGATIVE [facility] Comment on above: Performed By: #### Calvin TABOR, ERUR ####[facility] Yqdhqmwwvf6776 [place] [address]Dr. Donna Malone THC Negative Normal NEGATIVE [facility] Comment on above: Performed By: #### Calvin TABOR, ERUR ####[facility] Etuywhtllm8922[address] [place], [place] [address]Dr. Donna Malone ER URINE PROFILEon 3 Bilirubin Ql (U) MODERATE Abnormal NEGATIVE [facility] Comment on above: Performed By: #### Calvin TABOR, ERUR ####[facility] Unvmjebtmy9543[address] [place], [place] [address]Dr. Donna Malone Clarity (U) CLEAR Normal CLEAR [facility] Comment on above: Performed By: #### Calvin TABOR, ERUR ####[facility] Wzbufzrsgq3879 [place] [address]Dr. Donna Malone Color (U) DK. YELLOW Normal YELLOW [facility] Comment on above: Performed By: #### Calvin TABOR, ERUR ####[facility] Sadvuhgiok65[address] [place] [address]Dr. Donna Malone ERUAHD A micrscopic examina tion will be performed if indicated. Normal [facility] Comment on above: Performed By: #### Calvin TABOR, ERUR ####[facility] Clrjazvvrs7786 [place] [address]Dr. Donna Faisal Glucose Ql (U) Negative Normal NEGATIVE [facility] Comment on above: Performed By: #### Calvin TABOR, ERUR ####[facility] Fxbdtwdaxw206[address] [place], [place] [address]Dr. Donna Faisal Hemoglobin Ql (U) Negative Normal NEGATIVE [facility] Comment on above: Performed By: #### Calvin TABOR, ERUR ####[facility] Lqjnjhorhg994[address] [place], [place] [address]Dr. Donna Malone Ketones Ql (U) 40 mg/dl Abnormal NEGATIVE [facility] Comment on above: Performed By: #### Calvin TABOR, ERUR ####[facility] Sidzigkyfe3224[address] [place], [place] [address]Dr. Donna Malone LEUKOCYTES Negative Normal NEGATIVE [facility] Comment on above: Performed By: #### Calvin TABOR, ERUR ####[facility] Lxiedtyhpn6772[address] [place], [place] [address]Dr. Donna Faisal Nitrite Ql (U) Negative Normal NEGATIVE [facility] Comment on above: Performed By: #### Calvin TABOR ERUR ####[facility] Gdyrjiwwpq5896[address] [place], [place] [address]Dr. Donna Malone pH (U) 6.0 [pH] Normal 5-9 [facility] Comment on above: Performed By: #### Calvin TABOR, ERUR ####[facility] Aowrgrnixo3676[address] [place], [place] [address]Dr. Donna Malone SPEC GRAVITY 1.030 Abnormal 1.005-<=1. 025 [facility] Comment on above: Performed By: #### Calvin TABOR ERUR ####[facility] Vgkokmlddh072[address] [place], [place] [address]Dr. Donna Malone UA PROTEIN TRACE Normal NEGATIVE/ TRACE [facility] Comment on above: Performed By: #### Calvin TABOR, ERUR ####[facility] Pnhelnwzkp[address] [place], [place] [address]Dr. Donna Malone UR MICRO IND NOT INDICATED Normal [facility] Comment on above: Performed By: #### D SHARONA, ERUR ####[facility] Ynudhevunm5624 [place] [address]Dr. Donna Malone Urobilinogen Qn (U) 1.0 {Jermain'U}/dL Normal 0.2 - 1. 0 [facility] Comment on above: Performed By: #### D SHARONA, ERUR ####[facility] Dbcvcmmvuo5136 [place] [address]Dr. Donna Malone LACTATE/LACTIC ACIDon 2022 Lactate [Moles/Vol] 1.6 mmol/L Normal 0.4-1.9 [facility] Comment on above: Performed By: #### L ACT ####[facility] Uzthmgicbi30[address] [place], [place] [address]Dr. Donna Malone PROF 14(COMP METB)on 023 Albumin [Mass/Vol] 3.4 g/dL Normal 3.4-5.0 [facility] Comment on above: Performed By: #### B ASPHALT TAR AND GRAVEL ROOFER, CMP, HSTROPN ####[facility] Bnboicpviu24[address] [place], [place] [address]Dr. Donna Malone Albumin/Globulin [Mass ratio] 1.0 {ratio} Normal [facility] Comment on above: Performed By: #### B ASPHALT TAR AND GRAVEL ROOFER, CMP, HSTROPN ####[facility] Gnygvfkbqs8868 [place] [address]Dr. Donna Malone ALP [Catalytic activity/Vol] 48 U/L Normal 46-116 [facility] Comment on above: Performed By: #### B ASPHALT TAR AND GRAVEL ROOFER, CMP, HSTROPN ####[facility] Ucnwfcoorj9223 [place] [address]Dr. Donna Malone ALT [Catalytic activity/Vol] 13 U/L Critically low 16-63 [facility] Comment on above: Performed By: #### B ASPHALT TAR AND GRAVEL ROOFER, CMP, HSTROPN ####[facility] Mbhcjbvgdt6126 [place] [address]Dr. Donna Malone Anion gap [Moles/Vol] 13.2 mmol/L Normal [facility] Comment on above: Performed By: #### B ASPHALT TAR AND GRAVEL ROOFER, CMP, HSTROPN ####[facility] Pbybcgejsx6613 [place] [address]Dr. Donna Malone AST [Catalytic activity/Vol] 13 U/L Critically low 15-37 [facility] Comment on above: Performed By: #### B ASPHALT TAR AND GRAVEL ROOFER, CMP, HSTROPN ####[facility] Clotlkrhwt4048 [place] [address]Dr. Donna Malone Bilirubin [Mass/Vol] 0.4 mg/dL Normal 0.2-1.0 [facility] Comment on above: Performed By: #### B ASPHALT TAR AND GRAVEL ROOFER, CMP, HSTROPN ####[facility] Ysmtvgxvms8707 [place] [address]Dr. Donna Malone Calcium [Mass/Vol] 9.2 mg/dL Normal 8.5-10.1 [facility] Comment on above: Performed By: #### B ASPHALT TAR AND GRAVEL ROOFER, CMP, HSTROPN ####[facility] Qyatolylvi6995 [place] [address]Dr. Donna Malone Chloride [Moles/Vol] 108 mmol/L Critically high 98-107 [facility] Comment on above: Performed By: #### B ASPHALT TAR AND GRAVEL ROOFER, CMP, HSTROPN ####[facility] Uypoieulyo0497 [place] [address]Dr. Donna Malone CO2 [Moles/Vol] 27.0 mmol/L Normal 21.0-32.0 [facility] Comment on above: Performed By: #### B ASPHALT TAR AND GRAVEL ROOFER, CMP, HSTROPN ####[facility] Dqgjudzjxi0077 [place] [address]Dr. Donna Malone Creatinine [Mass/Vol] 1.14 mg/dL Normal 0.70-1.30 [facility] Comment on above: Performed By: #### B ASPHALT TAR AND GRAVEL ROOFER, CMP, HSTROPN ####[facility] Jbichahwgl8163 [place] [address]Dr. Donna Malone EGFR-AF ZAMBIAN >60 Normal >=60 [facility] Comment on above: Performed By: #### B ASPHALT TAR AND GRAVEL ROOFER, CMP, HSTROPN ####[facility] Tcmtfqesnu1363 [place] [address]Dr. Donna Malone EGFR-NON AF ZAMBIAN >60 Normal >=60 [facility] Comment on above: Performed By: #### B ASPHALT TAR AND GRAVEL ROOFER, CMP, HSTROPN ####[facility] Wtdltsjjgu3116 [place] [address]Dr. Donna Malone Globulin (S) [Mass/Vol] 3.5 g/dL Normal [facility] Comment on above: Performed By: #### B ASPHALT TAR [employer] GRAVEL ROOFER, CMP, HSTROPN ####[facility] [address]su[address]bdavq[address] [place] [address]Dr. Donna Malone Glucose [Mass/Vol] 126 mg/dL Critically high 74-106 T [facility] Comment on above: Performed By: #### B ASPHALT T[employer] GRAVEL ROOFER, CMP, HSTROPN ####[facility] Zhzfogmucb[address]375 [place] [address]Dr. Donna Malone Potassium [Moles/Vol] 4.2 mmol/L Normal 3.5-5.1 [facility] Comment on above: Performed By: #### B ASPHALT TAR [employer] GRAVEL ROOFER, CMP, HSTROPN ####[facility] Apeevzrzes[address] [place] [address]Dr. Donna Malone Protein [Mass/Vol] 6.9 g/dL Normal 6.4-8.2 [facility] Comment on above: Performed By: #### B ASPHALT TAR [employer] GRAVEL ROOFER, CMP, HSTROPN ####[facility] Aagodvjuju[address] [place] [address]Dr. Donna Malone Sodium [Moles/Vol] 144 mmol/L Normal 136-145 [facility] Comment on above: Performed By: #### B ASPHALT TAR [employer] GRAVEL ROOFER, CMP, HSTROPN ####[facility] [address]pojqowxwl[address] [place], [place] [address]Dr. Donna Malone Urea nitrogen [Mass/Vol] 17.0 mg/dL Normal 7.0-18.0 [facility] Comment on above: Performed By: #### B ASPHALT TAR [employer] GRAVEL ROOFER, CMP, HSTROPN ####[facility] Ugvwdohzcm44[address] [place] [address]Dr. Donna Malone Urea nitrogen/Creatinine [Mass ratio] 14.9 mg/mg Normal [facility] Comment on above: Performed By: #### B ASPHALT TAR [employer] GRAVEL ROOFER, CMP, HSTROPN ####[facility] F[address]jurycfi[address] [place], [place] [address]Wt. Donna Malone TROPONIN, HIGH SENSITIVITYon 11-14-2022 HSTROP 11.2 pg/mL Normal 4.0-76.1 [facility] Comment on above: Result Comment: CUT- OFF POINTS HAVE BEEN ESTABLISHED BASED ON THE FOURTH UNIVERSAL DEFINITIONS OF MYOCARDIALINFARCTION. THE UPPER REFERENCE LIMIT (URL) OF TROPONIN, DEFINED THE 99TH PERCENTILE OFcTnI DISTRIBUTION IN A REFERENCE POPULATION, HAS BEEN CONFIRMED THE DECISION THRESHOLDFOR AK DIAGNOSIS. Performed By: #### B ASPHALT TAR [employer] GRAVEL ROOFER, CMP, HSTROPN ####[facility] Rztmmgsfgm0710 [place], [place] [address]Jq. Donna Malone XR CHEST 1 Von 11-14-2022 XR CHEST 1 V Normal [facility] XR lumbar spine AP/LAT/FLX/E XTon 11-01-2022 XR lumbar spine AP/LAT/FLX/EXT [facility] [address] [place] [address] XRay Report Signed Patient: Taylor Mcclellan MR#: [id number] : 1955 Acct:[id number] Age/Sex: 67 / M ADM Date: 11/01/22 Loc: XD Room: Type: [facility] Attending Dr: Benson Lane MD Copies to: [...] Mj Rodriguez M.D.11/01/2022 3:07 PM Dictation Location: [place] [address] Transcribed By: JUANITA 11/01/22 1507 Dictated By: Mj Rodriguez II, MD 11/01/22 1505 Signed By: 11/01/22 1507 Normal [facility] ER URINE PROFILEon 3 Bilirubin Ql (U) Negative Normal NEGATIVE [facility] Comment on above: Performed By: #### E RUR ####[facility] Gblxihqpow[address] [place], [place] [address]Dr. Donna Malone Clarity (U) CLEAR Normal CLEAR [facility] Comment on above: Performed By: #### E RUR ####[facility] Strzznkqtl[address] [place], [place] [address]Dr. Donna Malone Color (U) YELLOW Normal YELLOW [facility] Comment on above: Performed By: #### E RUR ####[facility] Pjgmkpbmhn[address] [place], [place] [address]Dr. Donna Malone ERUAHD A micrscopic examina tion will be performed if indicated. Normal [facility] Comment on above: Performed By: #### E RUR ####[facility] Nfjeoxrpzr50[address] [place], [place] [address]Dr. Donna Malone Glucose Ql (U) 250 mg/dl Abnormal NEGATIVE [facility] Comment on above: Performed By: #### E RUR ####[facility] Hdnsuwqxpv12[address] [place], [place] [address]Dr. Donna Malone Hemoglobin Ql (U) TRACE-INTACT Abnormal NEGATIVE [facility] Comment on above: Performed By: #### E RUR ####[facility] Sdtcrsxsxk[address] [place] [address]Dr. Rubyyvan Malone Ketones Ql (U) Negative Normal NEGATIVE [facility] Comment on above: Performed By: #### E RUR ####[facility] Dzjcmufoie3369 [place] [address]Dr. Donna Malone LEUKOCYTES Negative Normal NEGATIVE [facility] Comment on above: Performed By: #### E RUR ####[facility] Lpljulxhbq69[address] [place], [place] [address]Dr. Rubyyvan Faisal Nitrite Ql (U) Negative Normal NEGATIVE [facility] Comment on above: Performed By: #### E RUR ####[facility] Epfgdldtcn[address] [place], [place] [address]Dr. Donna Malone pH (U) 5.5 [pH] Normal 5-9 [facility] Comment on above: Performed By: #### E RUR ####[facility] Nhaknsuzwi3[address] [place], [place] [address]Dr. Donna Malone SPEC GRAVITY 1.025 Normal 1.005-<=1. 025 [facility] Comment on above: Performed By: #### E RUR ####[facility] Eqgzfwtzck9056[address] [place], [place] [address]Dr. Donna Malone UA PROTEIN Negative Normal NEGATIVE/ TRACE [facility] Comment on above: Performed By: #### E RUR ####[facility] Iskrcxvrtl7[address] [place], [place] [address]Dr. Donna Malone UR MICRO IND NOT INDICATED Normal [facility] Comment on above: Performed By: #### E RUR ####[facility] Zhcbikwtwc[address] [place], [place] [address]Dr. Donna Malone Urobilinogen Qn (U) 0.2 {Jermain'U}/dL Normal 0.2 - 1. 0 [facility] Comment on above: Performed By: #### E RUR ####[facility] Ksqhypymmg[address] [place], [place] [address]Dr. Donna Malone CBC AUTO DIFFon 10-26-2022 BASO # 0.0 103/ul Normal 0.0-0.1 [facility] Comment on above: Performed By: #### C BC ####[facility] Joaqobznlj8[address] [place], [place] [address]Dr. Donna Malone Basophils/100 WBC (Bld) 0.4 % Normal 0.2-2.0 [facility] Comment on above: Performed By: #### C BC ####[facility] Sixxhcyzad3164[address] [place], [place] [address]Dr. Donna Malone EO # 0.0 103/ul Normal 0.0-0.7 [facility] Comment on above: Performed By: #### C BC ####[facility] Njpjebauox90[address] [place], [place] [address]Dr. Donna Malone Eosinophils/100 WBC (Bld) 0.0 % Critically low 0.9-7.0 [facility] Comment on above: Performed By: #### C BC ####[facility] Vawsmdesun[address] [place], [place] [address]Dr. Donna Malone Erythrocyte distribution width (RBC) [Ratio] 14.5 % Normal 11.0-15.0 [facility] Comment on above: Performed By: #### C BC ####[facility] Rjumvzozqw[address] [place], [place] [address]Dr. Donna Malone Hematocrit (Bld) [Volume fraction] 41.2 % Critically low 42.0-54.0 [facility] Comment on above: Performed By: #### C BC ####[facility] Bwjuuutkwo[address] [place], [place] [address]Dr. Donna Malone Hemoglobin (Bld) [Mass/Vol] 13.7 g/dL Critically low 14.0-18.0 [facility] Comment on above: Performed By: #### C BC ####[facility] Tapdxphzyh13[address] [place], [place] [address]Dr. Donna Malone IG # 0.02 10e3/ul Normal 0.00-0.03 [facility] Comment on above: Performed By: #### C BC ####[facility] Ezzoblywxj9804 [place] [address]Dr. Donna Malone IG % 0.2 % Normal 0.0-0.5 [facility] Comment on above: Performed By: #### C BC ####[facility] Kisorfjqig[address] [place], [place] [address]Dr. Donna Malone LYMPH # 1.2 103/ul Normal 1.2-3.8 [facility] Comment on above: Performed By: #### C BC ####[facility] Fddaoyuctl9[address] [place], [place] [address]Dr. Donna Malone Lymphocytes/100 WBC (Bld) 14.4 % Critically low 20.5-60.0 [facility] Comment on above: Performed By: #### C BC ####[facility] Tvhfkartya[address] [place], [place] [address]DrElizabeth Malone MANUAL DIFF REQ NO Normal [facility] Comment on above: Performed By: #### C BC ####[facility] Sjafbhdfzh[address] [place], [place] [address]Dr. Donna Faisal MCH (RBC) [Entitic mass] 29.4 pg Normal 25.9-34.0 [facility] Comment on above: Performed By: #### C BC ####[facility] Pwjwsfotqi[address] [place], [place] [address]Dr. Donna Faisal MCHC (RBC) [Mass/Vol] 33.3 g/dL Normal 29.9-35.2 [facility] Comment on above: Performed By: #### C BC ####[facility] Xvumsulenu9[address] [place], [place] [address]DrElizabeth Malone MCV (RBC) [Entitic vol] 88.4 fL Normal 80.0-94.0 [facility] Comment on above: Performed By: #### C BC ####[facility] Vklksgjbbw[address] [place], [place] [address]DrElizabeth Malone MONO # 0.2 103/ul Critically low 0.3-0.8 [facility] Comment on above: Performed By: #### C BC ####[facility] Tbliraagpx[address] [place], [place] [address]Dr. Donna Malone Monocytes/100 WBC (Bld) 2.5 % Normal 1.7-12.0 [facility] Comment on above: Performed By: #### C BC ####[facility] Apnjycazvg6854 [place] [address]Dr. Donna Malone NEUT # 6.9 103/ul Critically high 1.4-6.5 [facility] Comment on above: Performed By: #### C BC ####[facility] Brkrmhuvcp8502 [place] [address]Dr. Donna Malone Neutrophils/100 WBC (Bld) 82.5 % Critically high 43.0-75.0 [facility] Comment on above: Performed By: #### C BC ####[facility] Tefsvucymq[address]25[address] [place], [place] [address]Dr. Donna Malone Platelet mean volume (Bld) [Entitic vol] 11.3 fL Normal 9.5-13.5 [facility] Comment on above: Performed By: #### C BC ####[facility] Npvstuenzq46[address] [place], [place] [address]Dr. Donna Malone PLT 241 103/ul Normal 150-450 [facility] Comment on above: Performed By: #### C BC ####[facility] Ddrplpglab[address] [place], [place] [address]Dr. Donna Malone RBC 4.66 106/ul Critically low 4.70-6.10 [facility] Comment on above: Performed By: #### C BC ####[facility] Rizedenaqx7[address] [place], [place] [address]Dr. Donna Malone WBC 8.4 103/ul Normal 4.0-11.0 [facility] Comment on above: Performed By: #### C BC ####[facility] Sktxcrqmbz[address] [place], [place] [address]Dr. Donna Malone CRPon 10-26-2022 CRP [Mass/Vol] mg/L Normal <=1.0 [facility] Comment on above: Performed By: #### C RP, BMP ####[facility] Gksoowrgio040[address] [place], [place] [address]Dr. Donna Malone CT LSPINE WO CONon 3 CT LSPINE WO CON Normal [facility] PROF CHEM 8 (BAS METB)on Anion gap [Moles/Vol] 11.9 mmol/L Normal [facility] Comment on above: Performed By: #### C RP, BMP ####[facility] Ohtxlagxoy3706 [place] [address]Dr. Rubyyvan Malone Calcium [Mass/Vol] 9.1 mg/dL Normal 8.5-10.1 [facility] Comment on above: Performed By: #### C RP, BMP ####[facility] Lwviysuzcv0635 [place] [address]Dr. Donna Malone Chloride [Moles/Vol] 104 mmol/L Normal 98-107 [facility] Comment on above: Performed By: #### C RP, BMP ####[facility] Mhqkmahuwu4225 [place] [address]Dr. Rubyyvan Malone CO2 [Moles/Vol] 26.3 mmol/L Normal 21.0-32.0 [facility] Comment on above: Performed By: #### C RP, BMP ####[facility] Qnmqchljnd5507 [place] [address]Dr. Rubyyvan Faisal Creatinine [Mass/Vol] 0.99 mg/dL Normal 0.70-1.30 [facility] Comment on above: Performed By: #### C RP, BMP ####[facility] Dvwsnuefhh8056 [place] [address]Dr. Rubyyvan Faisal EGFR-AF ZAMBIAN >60 Normal >=60 [facility] Comment on above: Performed By: #### C RP, BMP ####[facility] Fuhhvrdlrp9928 [place] [address]Dr. Donna Malone EGFR-NON AF ZAMBIAN >60 Normal >=60 [facility] Comment on above: Performed By: #### C RP, BMP ####[facility] Smdsercvxa5295 [place] [address]Dr. Donna Malone Glucose [Mass/Vol] 152 mg/dL Critically high 74-106 [facility] Comment on above: Performed By: #### C RP, BMP ####[facility] Fsrwgdflyx7874 [place] [address]Dr. Donna Malone Potassium [Moles/Vol] 4.2 mmol/L Normal 3.5-5.1 [facility] Comment on above: Performed By: #### C RP, BMP ####[facility] Hffpggjtvm7[address] [place], [place] [address]Dr. Donna Malone Sodium [Moles/Vol] 138 mmol/L Normal 136-145 [facility] Comment on above: Performed By: #### C RP, BMP ####[facility] Frheuhwsgm96[address] [place], [place] [address]Dr. Donna Faisal Urea nitrogen [Mass/Vol] 12.0 mg/dL Normal 7.0-18.0 [facility] Comment on above: Performed By: #### C RP, BMP ####[facility] Veuzhvxknm[address] [place], [place] [address]Dr. Donna Faisal Urea nitrogen/Creatinine [Mass ratio] 12.1 mg/mg Normal [facility] Comment on above: Performed By: #### C RP, BMP ####[facility] Ttbeypdaad[address] [place], [place] [address]Dr. Donna Faisal [facility] ISLANDRENon 2022 SED RATE 57 mm/hr Critically high <=20 [facility] Comment on above: Performed By: #### S EDR ####[facility] Tyxxvjsnpt4037[address] [place], [place] [address]Dr. Donna Faisal CBC AUTO DIFFon 10-25-2022 BASO # 0.0 103/ul Normal 0.0-0.1 [facility] Comment on above: Performed By: #### C BC ####[facility] Nogslseihl[address] [place], [place] [address]Dr. Donna Faisal Basophils/100 WBC (Bld) 0.4 % Normal 0.2-2.0 [facility] Comment on above: Performed By: #### C BC ####[facility] Jansakoyhr4576[address] [place], [place] [address]Dr. Yiyvan Malone EO # 0.0 103/ul Normal 0.0-0.7 [facility] Comment on above: Performed By: #### C BC ####[facility] Wtwotixfyg3[address] [place], [place] [address]Dr. Donna Faisal Eosinophils/100 WBC (Bld) 0.0 % Critically low 0.9-7.0 [facility] Comment on above: Performed By: #### C BC ####[facility] Hahvvtmyqm27[address] [place], [place] [address]Dr. Donna Malone Erythrocyte distribution width (RBC) [Ratio] 14.5 % Normal 11.0-15.0 [facility] Comment on above: Performed By: #### C BC ####[facility] Ojwweksvrk[address] [place], [place] [address]Dr. Rubyyvan Malone Hematocrit (Bld) [Volume fraction] 43.8 % Normal 42.0-54.0 [facility] Comment on above: Performed By: #### C BC ####[facility] Mwayhoqmoy[address] [place], [place] [address]Dr. Donna Malone Hemoglobin (Bld) [Mass/Vol] 14.2 g/dL Normal 14.0-18.0 [facility] Comment on above: Performed By: #### C BC ####[facility] Muudwwmhgl[address] [place], [place] [address]Dr. Rubyyvan Faisal IG # 0.01 10e3/ul Normal 0.00-0.03 [facility] Comment on above: Performed By: #### C BC ####[facility] Hzboojjsyc1974[address] [place], [place] [address]Dr. Donna Malone IG % 0.1 % Normal 0.0-0.5 [facility] Comment on above: Performed By: #### C BC ####[facility] Wfyvrntces1246[address] [place], [place] [address]Dr. Donan Malone LYMPH # 1.4 103/ul Normal 1.2-3.8 [facility] Comment on above: Performed By: #### C BC ####[facility] Ukauskdrgb[address] [place], [place] [address]DrElizabeth Malone Lymphocytes/100 WBC (Bld) 17.1 % Critically low 20.5-60.0 [facility] Comment on above: Performed By: #### C BC ####[facility] Gabgsqusxl4225 [place] [address]DrElizabeth Malone MANUAL DIFF REQ NO Normal [facility] Comment on above: Performed By: #### C BC ####[facility] Wvkzbvdawj9102 [place] [address]DrElizabeth Malone MCH (RBC) [Entitic mass] 29.1 pg Normal 25.9-34.0 [facility] Comment on above: Performed By: #### C BC ####[facility] Kktwlfbmmp[address] [place], [place] [address]DrElizabeth Malone MCHC (RBC) [Mass/Vol] 32.4 g/dL Normal 29.9-35.2 [facility] Comment on above: Performed By: #### C BC ####[facility] Dnuxjrpyzr[address] [place], [place] [address]DrElizabeth Malone MCV (RBC) [Entitic vol] 89.8 fL Normal 80.0-94.0 [facility] Comment on above: Performed By: #### C BC ####[facility] Uwciwqkmnn[address] [place], [place] [address]DrElizabeth Malone MONO # 0.3 103/ul Normal 0.3-0.8 [facility] Comment on above: Performed By: #### C BC ####[facility] Iqbbwxhsrs[address] [place], [place] [address]DrElizabeth Malone Monocytes/100 WBC (Bld) 4.1 % Normal 1.7-12.0 [facility] Comment on above: Performed By: #### C BC ####[facility] Kowglmdcne[address] [place], [place] [address]DrElizabeth Malone NEUT # 6.3 103/ul Normal 1.4-6.5 [facility] Comment on above: Performed By: #### C BC ####[facility] Ravlndemut[address] [place], [place] [address]DrElizabeth Malone Neutrophils/100 WBC (Bld) 78.3 % Critically high 43.0-75.0 [facility] Comment on above: Performed By: #### C BC ####[facility] Ykjehfhlqi[address] [place], [place] [address]Dr. Donna Malone Platelet mean volume (Bld) [Entitic vol] 11.3 fL Normal 9.5-13.5 [facility] Comment on above: Performed By: #### C BC ####[facility] Qoxqbvplhr[address] [place], [place] [address]Dr. Donna Malone PLT 271 103/ul Normal 150-450 [facility] Comment on above: Performed By: #### C BC ####[facility] Jpsaxhpwkc15[address] [place], [place] [address]Dr. Donna Malone RBC 4.88 106/ul Normal 4.70-6.10 [facility] Comment on above: Performed By: #### C BC ####[facility] Gqvnvuuzjn[address] [place], [place] [address]Dr. Donna Faisal WBC 8.0 103/ul Normal 4.0-11.0 [facility] Comment on above: Performed By: #### C BC ####[facility] Tfirywxwri[address] [place], [place] [address]Dr. Donna Faisal ER URINE PROFILEon 3 Bilirubin Ql (U) Negative Normal NEGATIVE [facility] Comment on above: Performed By: #### E RUR ####[facility] [address]zlhbvjsf[address] [place], [place] [address]Dr. Donna Malone Clarity (U) CLEAR Normal CLEAR [facility] Comment on above: Performed By: #### E RUR ####[facility] Uktlslbzut[address] [place], [place] [address]Dr. Donna Malone Color (U) YELLOW Normal YELLOW [facility] Comment on above: Performed By: #### E RUR ####[facility] Wmrdcmxvqv[address] [place], [place] [address]Dr. Donna Malone ERUAHD A micrscopic examina tion will be performed if indicated. Normal [facility] Comment on above: Performed By: #### E RUR ####[facility] Eygafugyvy2273 [place] [address]Dr. Donna Malone Glucose Ql (U) 100 mg/dl Abnormal NEGATIVE [facility] Comment on above: Performed By: #### E RUR ####[facility] Fxrvmsmbrw0309 [place] [address]Dr. Donna Malone Hemoglobin Ql (U) Negative Normal NEGATIVE [facility] Comment on above: Performed By: #### E RUR ####[facility] Sokrkdjyan[address] [place], [place] [address]Dr. Donna Malone Ketones Ql (U) TRACE Abnormal NEGATIVE [facility] Comment on above: Performed By: #### E RUR ####[facility] Orntfirwpr[address] [place], [place] [address]Dr. Donna Malone LEUKOCYTES Negative Normal NEGATIVE [facility] Comment on above: Performed By: #### E RUR ####[facility] Zshwkkfbrx[address] [place], [place] [address]Dr. Donna Malone Nitrite Ql (U) Negative Normal NEGATIVE [facility] Comment on above: Performed By: #### E RUR ####[facility] Sagcczucdv18[address] [place], [place] [address]Dr. Donna Malone pH (U) 6.0 [pH] Normal 5-9 [facility] Comment on above: Performed By: #### E RUR ####[facility] Ajnkcnpgfj39[address] [place], [place] [address]Dr. Donna Malone SPEC GRAVITY >=1.030 Abnormal 1.005-<=1. 025 [facility] Comment on above: Performed By: #### E RUR ####[facility] Brqbsijbao[address] [place], [place] [address]Dr. Donna Malone UA PROTEIN Negative Normal NEGATIVE/ TRACE [facility] Comment on above: Performed By: #### E RUR ####[facility] Urrbosnlqr[address] [place], [place] [address]Dr. Donna Malone UR MICRO IND NOT INDICATED Normal [facility] Comment on above: Performed By: #### E RUR ####[facility] Yunxotrzqx2761 [place] [address]Dr. Donna Malone Urobilinogen Qn (U) 0.2 {Jermain'U}/dL Normal 0.2 - 1. 0 [facility] Comment on above: Performed By: #### E RUR ####[facility] Rzksdmpotr0234 [place] [address]Dr. Donna Malone PROF CHEM 8 (BAS METB)on Anion gap [Moles/Vol] 16.4 mmol/L Normal Th [facility] Comment on above: Performed By: #### B MP ####[facility] Lfnmcvzmim[address] [place], [place] [address]Dr. Donna Malone Calcium [Mass/Vol] 9.4 mg/dL Normal 8.5-10.1 [facility] Comment on above: Performed By: #### B MP ####[facility] Zxjwdirdng[address] [place], [place] [address]Dr. Donna Malone Chloride [Moles/Vol] 103 mmol/L Normal 98-107 [facility] Comment on above: Performed By: #### B MP ####[facility] Riytbrqmsk[address] [place], [place] [address]Dr. Donna Malone CO2 [Moles/Vol] 23.7 mmol/L Normal 21.0-32.0 [facility] Comment on above: Performed By: #### B MP ####[facility] Mujczbuyvs[address] [place], [place] [address]Dr. Donna Malone Creatinine [Mass/Vol] 1.12 mg/dL Normal 0.70-1.30 [facility] Comment on above: Performed By: #### B MP ####[facility] Ndmrlbmcod[address] [place], [place] [address]Dr. Donna Malone EGFR-AF ZAMBIAN >60 Normal >=60 [facility] Comment on above: Performed By: #### B MP ####[facility] Mahitgkrpy[address] [place], [place] [address]Dr. Donna Malone EGFR-NON AF ZAMBIAN >60 Normal >=60 [facility] Comment on above: Performed By: #### B MP ####[facility] [id number] [place] [address]Dr. Donna Malone Glucose [Mass/Vol] 170 mg/dL Critically high 74-106 T [facility] Comment on above: Performed By: #### B MP ####[facility] [address] [place] [id number]. Donna Malone Potassium [Moles/Vol] 4.1 mmol/L Normal 3.5-5.1 [facility] Comment on above: Performed By: #### B MP ####[facility] Covrqcfnsr[address] [place], [place] [address]Dr. Donna Malone Sodium [Moles/Vol] 139 mmol/L Normal 136-145 [facility] Comment on above: Performed By: #### B MP ####[facility] Lpreaaafhr[address] [place], [place] [address]Dr. Donna Malone Urea nitrogen [Mass/Vol] 9.0 mg/dL Normal 7.0-18.0 [facility] Comment on above: Performed By: #### B MP ####[facility] Ohipzev[address] [place], [place] [address]Dr. Donna Malone Urea nitrogen/Creatinine [Mass ratio] 8.0 mg/mg Normal [facility] Comment on above: Performed By: #### B MP ####[facility] Cysjnshaxu[address] [place], [place] [address]Dr. Donna Malone ACETONE SERUMon 08-10-2022 ACETONE Negative Normal NEGATIVE [facility] Comment on above: Performed By: #### A CETON ####[facility] Acsmwtubjy[address] [place], [place] [address]Dr. Donna Malone CBC AUTO DIFFon 08-10-2022 BASO # 0.1 103/ul Normal 0.0-0.1 [facility] Comment on above: Performed By: #### C BC ####[facility] [address]pxpb[address] [place], [place] [address]Dr. Donna Faisal Basophils/100 WBC (Bld) 0.7 % Normal 0.2-2.0 [facility] Comment on above: Performed By: #### C BC ####[facility] [address] [place] [address]Dr. Donna Malone EO # 0.2 103/ul Normal 0.0-0.7 [facility] Comment on above: Performed By: #### C BC ####[facility] [address] [place] [address]Dr. Donna Malone Eosinophils/100 WBC (Bld) 2.0 % Normal 0.9-7.0 [facility] Comment on above: Performed By: #### C BC ####[facility] Qsxghgzvfl[address] [place], [place] [address]Dr. Donna Malone Erythrocyte distribution width (RBC) [Ratio] 14.3 % Normal 11.0-15.0 [facility] Comment on above: Performed By: #### C BC ####[facility] Jefooomppb[address] [place], [place] [address]Dr. Donna Malone Hematocrit (Bld) [Volume fraction] 37.3 % Critically low 42.0-54.0 [facility] Comment on above: Performed By: #### C BC ####[facility] Izwtzvjure[address] [place], [place] [address]Dr. Donna Malone Hemoglobin (Bld) [Mass/Vol] 12.1 g/dL Critically low 14.0-18.0 [facility] Comment on above: Performed By: #### C BC ####[facility] Lsnhiccejs[address] [place], [place] [address]Dr. Donna Malone IG # 0.03 10e3/ul Normal 0.00-0.03 [facility] Comment on above: Performed By: #### C BC ####[facility] Vrgpnbvgyr[address] [place], [place] [address]Dr. Donna Malone IG % 0.4 % Normal 0.0-0.5 [facility] Comment on above: Performed By: #### C BC ####[facility] Duoiekdeki[address] [place], [place] [address]Dr. Donna Malone LYMPH # 1.3 103/ul Normal 1.2-3.8 [facility] Comment on above: Performed By: #### C BC ####[facility] [address] [place] [id number]. Donna Malone Lymphocytes/100 WBC (Bld) 18.3 % Critically low 20.5-60.0 [facility] Comment on above: Performed By: #### C BC ####[facility] [address] [place] [id number]. Rubyyvan Malone MANUAL DIFF REQ NO Normal [facility] Comment on above: Performed By: #### C BC ####[facility] Orfv[address]im[address] [place], [place] [id number]. Donna Faisal MCH (RBC) [Entitic mass] 30.1 pg Normal 25.9-34.0 [facility] Comment on above: Performed By: #### C BC ####[facility] Uavvpfbyyv[address] [place], [place] [address]Dr. Donna Faisal MCHC (RBC) [Mass/Vol] 32.4 g/dL Normal 29.9-35.2 [facility] Comment on above: Performed By: #### C BC ####[facility] Lqhu[address]qvj[address] [place], [place] [address]Dr. Donna Faisal MCV (RBC) [Entitic vol] 92.8 fL Normal 80.0-94.0 [facility] Comment on above: Performed By: #### C BC ####[facility] Bhdrzwzedp[address] [place], [place] [address]Dr. Donna Faisal MONO # 0.6 103/ul Normal 0.3-0.8 [facility] Comment on above: Performed By: #### C BC ####[facility] Wanlknrknh[address] [place], [place] [address]Dr. Rubyyvan Malone Monocytes/100 WBC (Bld) 7.6 % Normal 1.7-12.0 [facility] Comment on above: Performed By: #### C BC ####[facility] Fimbcncpuf[address] [place], [place] [address]Dr. Donna Malone NEUT # 5.2 103/ul Normal 1.4-6.5 [facility] Comment on above: Performed By: #### C BC ####[facility] [address] [place], [place] [address]Qz. Donna Malone Neutrophils/100 WBC (Bld) 71.0 % Normal 43.0-75.0 [facility] Comment on above: Performed By: #### C BC ####[facility] [address]fpqa[address] [place], [place] [address]Tj. Donna Malone Platelet mean volume (Bld) [Entitic vol] 11.6 fL Normal 9.5-13.5 [facility] Comment on above: Performed By: #### C BC ####[facility] [address] [place], [place] [address]Jd. Donna Malone PLT 237 103/ul Normal 150-450 [facility] Comment on above: Performed By: #### C BC ####[facility] [address] [place] [id number]. Donna Malone RBC 4.02 106/ul Critically low 4.70-6.10 [facility] Comment on above: Performed By: #### C BC ####[facility] [address] [place], [place] [address]Fu. Donna Malone WBC 7.3 103/ul Normal 4.0-11.0 [facility] Comment on above: Performed By: #### C BC ####[facility] [address] [place] [id number]. Donna Malone Covid-19 PCR (CVDTB)on SARS-CoV-2 (COVID-19) RNA JOSÉ MIGUEL+probe Ql (Unsp spec) Not detected Normal NOT DETECTED [facility] Comment on above: Result Comment: When [...] for this test is supported by the [place] of Health and Human Service's declaration that [...] be used). Performed By: #### C VDTBH ####[facility] Gcjkyrrugf[address] [place], [place] [address]Dr. Donna Malone LACTATE/LACTIC ACIDon 2021 Lactate [Moles/Vol] 1.3 mmol/L Normal 0.4-1.9 [facility] Comment on above: Performed By: #### L ACT ####[facility] Z[address]zzjptgv[address] [place], [place] [address]Dr. Donna Malone PROF 14(COMP METB)on 022 Albumin [Mass/Vol] 2.9 g/dL Critically low 3.4-5.0 [facility] Comment on above: Performed By: #### C MARTI, HSTROPN ####[facility] Waq[address] [place], [place] [address]Dr. Donna Malone Albumin/Globulin [Mass ratio] 0.7 {ratio} Normal [facility] Comment on above: Performed By: #### C MARTI, HSTROPN ####[facility] [address]xmeqsrkti[address] [place], [place] [address]Dr. Donna Malone ALP [Catalytic activity/Vol] 45 U/L Critically low 46-116 [facility] Comment on above: Performed By: #### C MARTI, HSTROPN ####[facility] Tzrfzbqnom[address] [place], [place] [address]Dr. Donna Malone ALT [Catalytic activity/Vol] 12 U/L Critically low 16-63 [facility] Comment on above: Performed By: #### C MARTI, HSTROPN ####[facility] K[address]cvfkwlnv[address] [place], [place] [address]Dr. Donna Malone Anion gap [Moles/Vol] 10.9 mmol/L Normal [facility] Comment on above: Performed By: #### C MARTI, HSTROPN ####[facility] [address] [place] [address]Dr. Donna Malone AST [Catalytic activity/Vol] 10 U/L Critically low 15-37 [facility] Comment on above: Performed By: #### C MARTI, HSTROPN ####[facility] [address] [place] [address]Dr. Donna Malone Bilirubin [Mass/Vol] 0.3 mg/dL Normal 0.2-1.0 [facility] Comment on above: Performed By: #### C MARTI, HSTROPN ####[facility] [address]tcspjqlwk[address] [place], [place] [address]Dr. Donna Malone Calcium [Mass/Vol] 8.9 mg/dL Normal 8.5-10.1 [facility] Comment on above: Performed By: #### C MARTI, HSTROPN ####[facility] Z[address]zkwu[address] [place], [place] [address]Dr. Donna Malone Chloride [Moles/Vol] 106 mmol/L Normal 98-107 [facility] Comment on above: Performed By: #### C MARTI, HSTROPN ####[facility] [address]stwem[address]vr[address] [place], [place] [address]Dr. Donna Malone CO2 [Moles/Vol] 29.4 mmol/L Normal 21.0-32.0 [facility] Comment on above: Performed By: #### C MARTI, HSTROPN ####[facility] T[address]yl[address]zg[address] [place], [place] [address]Dr. Donna Malone Creatinine [Mass/Vol] 1.15 mg/dL Normal 0.70-1.30 [facility] Comment on above: Performed By: #### C MARTI, HSTROPN ####[facility] Pbor[address] [place], [place] [address]Dr. Donna Malone EGFR-AF ZAMBIAN >60 Normal >=60 [facility] Comment on above: Performed By: #### C MARTI, HSTROPN ####[facility] S[address]phes[address] [place], [place] [address]Dr. Donna Malone EGFR-NON AF ZAMBIAN >60 Normal >=60 [facility] Comment on above: Performed By: #### C MARTI, HSTROPN ####[facility] [address] [place] [address]Dr. Donna Malone Globulin (S) [Mass/Vol] 4.2 g/dL Normal [facility] Comment on above: Performed By: #### C MARTI, HSTROPN ####[facility] [address] [place] [address]Dr. Donna Malone Glucose [Mass/Vol] 116 mg/dL Critically high 74-106 T [facility] Comment on above: Performed By: #### C MARTI, HSTROPN ####[facility] [address] [place] [address]Dr. Donna Malone Potassium [Moles/Vol] 4.3 mmol/L Normal 3.5-5.1 [facility] Comment on above: Performed By: #### C MARTI, HSTROPN ####[facility] [address] [place] [address]Dr. Donna Malone Protein [Mass/Vol] 7.1 g/dL Normal 6.4-8.2 [facility] Comment on above: Performed By: #### C MARTI, HSTROPN ####[facility] [address] [place] [address]Dr. Donna Malone Sodium [Moles/Vol] 142 mmol/L Normal 136-145 [facility] Comment on above: Performed By: #### C MARTI, HSTROPN ####[facility] [address] [place] [address]Dr. Donna Malone Urea nitrogen [Mass/Vol] 9.0 mg/dL Normal 7.0-18.0 [facility] Comment on above: Performed By: #### C MARTI, HSTROPN ####[facility] [address] [place] [address]Dr. Donna Malone Urea nitrogen/Creatinine [Mass ratio] 7.8 mg/mg Normal [facility] Comment on above: Performed By: #### C MARTI, HSTROPN ####[facility] [address] [place], [place] [address]Re. Donna Malone TROPONIN, HIGH SENSITIVITYon 08-10-2022 HSTROP 9.1 pg/mL Normal 4.0-76.1 [facility] Comment on above: Result Comment: CUT- OFF POINTS HAVE BEEN ESTABLISHED BASED ON THE FOURTH UNIVERSAL DEFINITIONS OF MYOCARDIALINFARCTION. THE UPPER REFERENCE LIMIT (URL) OF TROPONIN, DEFINED THE 99TH PERCENTILE OFcTnI DISTRIBUTION IN A REFERENCE POPULATION, HAS BEEN CONFIRMED THE DECISION THRESHOLDFOR AK DIAGNOSIS. Performed By: #### C MP, HSTROPN ####[facility] [address] [place], [place] [address]Zl. Donna Malone XR KNEE RT 4V or >on 022 XR KNEE RT 4V or > Normal [facility] CT HEAD WO [facility] 08-05-2022 CT HEAD WO CON Normal [facility] CT CSPINE WO [facility] 2 CT CSPINE WO CON Normal [facility] CON Normal Th e [facility] CT LSPINE WO [facility] 2 CT LSPINE WO CON Normal [facility] Glucose Glucometer (BldC) [M ass/Vol]Ordered By: Sang Bauer on 07-20-2022 Glucose [Mass/Vol] 139 mg/dL [facility] Comment on above: Random Glucose Refer ence Range is dependent on time and content of last meal. Glucose of more than 200 mg/dL in a nonstressed, ambulatory subject supports the diagnosis of Diabetes Mellitus. No Panel InformationOrdered By: Sang Bauer on 07-20-2022 Bedside Glucose Comment Glu2: cleaned meter [facility] Cholesterol [Mass/volume] in Serum or PlasmaOrdered By: Sang Bauer on 07-18-2022 Cholesterol [Mass/Vol] 136 mg/dL 140-200 [facility] Comment on above: Chol less than 200 m g/dl low riskChol 201-239 mg/dl borderline riskChol 240 mg/dl and greater high risk Cholesterol in LDL Calc [Mas s/Vol]Ordered By: Sang Bauer on 07-18-2022 Cholesterol in LDL [Mass/Vol] 81 mg/dL 0-100 [facility] Comment on above: LDL ATP III CLASSIFI CATIONLDL less than 100 mg/dL OptimalLDL 100-129 mg/dL Near or above optimalLDL 130-159 mg/dL Borderline highLDL 160-189 mg/dL HighLDL greater than 189 mg/dL Very high Cholesterol in VLDL Calc [Ma ss/Vol]Ordered By: Sang Bauer on 07-18-2022 Cholesterol in VLDL [Mass/Vol] 17 mg/dL [facility] Serum or plasma high density lipoprotein (HDL) cholesterol measurementOrdered By: SangHidalgo on 07-18-2022 Cholesterol in HDL [Mass/Vol] 38 mg/dL 29-71 [facility] Comment on above: HDL CHOL ATP-III CLA SSIFICATION Cardiovascular RiskHDL > or equal to 60 mg/dL LOWHDL < 40 mg/dL HIGH Serum or plasma total choles terol/high density lipoprotein (HDL) cholesterol mass ratOrdered By: Sang Bauer on 07-18-2022 Cholesterol.total/Chol esterol in HDL [Mass ratio] 3.6 {ratio} <5.0 [facility] Triglyceride [Mass/volume] i n Serum or PlasmaOrdered By: Sang Bauer on 07-18-2022 Triglyceride [Mass/Vol] 85 mg/dL 35-149 [facility] Comment on above: TRIG ATP [...] aPTT Coag (PPP) [Time] 35.8 s 25.1-36.5 [facility] Albumin [Mass/volume] in Ser um or PlasmaOrdered By: Gayathri Leal on 07-17-2022 Albumin [Mass/Vol] 3.1 g/dL 3.2-5.5 [facility] Amphetamine Screen Ql (U)Ord ered By: Gayathri Leal on 07-17-2022 Amphetamines Ql (U) Negative Negative [facility] Automated erythrocytes count in urine sediment (number/area)Ordered By: Gayathri Leal on 07-17-2022 RBC Auto (Urine sed) [#/Area] 3-4 [HPF] 0-4 [facility] Automated leukocytes count i n urine sediment (number/area)Ordered By: Gayathri Leal on 07-17-2022 WBC Auto (Urine sed) [#/Area] 1-2 [HPF] 0-4 [facility] Barbiturates [Presence] in U rineOrdered By: Gayathri Leal on 07-17-2022 Barbiturates Ql (U) Negative Negative [facility] Basophils Auto (Bld) [#/Vol] Ordered By: Gayathri Leal on 07-17-2022 Basophils (Bld) [#/Vol] 0.1 10*3/uL 0.0-0.2 [facility] Basophils/100 WBC Auto (Bld) Ordered By: Gayathri Leal on 07-17-2022 Basophils/100 WBC (Bld) 1.0 % . [facility] Benzodiazepines [Presence] i n UrineOrdered By: Gayathri Leal on 07-17-2022 Benzodiazepines Ql (U) Positive Negative [facility] Bilirubin Test strip Ql (U)O rdered By: Gayathri Leal on 07-17-2022 Bilirubin Ql (U) Negative Negative [facility] COVID CepheidOrdered By: Olya Leal on 07-17-2022 SARS-CoV-2 (COVID-19) Ab IA Ql Negative Negative [facility] Comment on above: This is a duplicate Cepheid Xpert Xpress CoV-2/Flu/RSV Plus RNA by RT-PCR result to be used for statistical tracking purpose only. SARS-CoV-2 (COVID-19) RNA JOSÉ MIGUEL+probe Ql (Unsp spec) [facility] Cannabinoids [Presence] in U rine by Screen methodOrdered By: Gayathri Leal on 07-17-2022 Cannabinoids Screen Ql (U) Negative Negative [facility] Comment on above: These are unconfirme d results and should not be used for legal purposes. Drug Cut-Off Concentration: AMPH 1000 ng/mL EWA 200 ng/mL JOHN 200 ng/mL COCM 300 ng/mL OP 300 ng/mL PCP 25 ng/mL THC 20 ng/mL Color Auto (U)Ordered By: Dung Leal on 07-17-2022 Color (U) Yellow Yellow [facility] Creatine kinase [Enzymatic a ctivity/volume] in Serum or PlasmaOrdered By: Gayathri Leal on 07-17-2022 CK [Catalytic activity/Vol] 137 U/L 22-269 [facility] Creatinine and Glomerular fi ltration rate.predicted panel (S/P/Bld)Ordered By: Gayathri Leal on 07-17-2022 Creatinine [Mass/Vol] 1.06 mg/dL 0.64-1.27 [facility] Direct bilirubin measurement Ordered By: Gayathri Leal on 07-17-2022 Bilirubin.direct [Mass/Vol] mg/dL 0.0-0.4 [facility] Eosinophils Auto (Bld) [#/Vo l]Ordered By: Gayathri Leal on 07-17-2022 Eosinophils (Bld) [#/Vol] 0.1 10*3/uL 0.0-0.45 [facility] Eosinophils/100 WBC Auto (Bl d)Ordered By: Gayathri Leal on 07-17-2022 Eosinophils/100 WBC (Bld) 0.7 % . [facility] Erythrocyte distribution wid th Auto (RBC) [Ratio]Ordered By: Gayathri Leal on 07-17-2022 Erythrocyte distribution width (RBC) [Ratio] 15.8 % 12.0-14.8 [facility] Estimated glomerular filtrat ion rate (GFR) non- AmericanOrdered By: Gayathri Leal on 07-17-2022 GFR/1.73 sq M.predicted among non-blacks MDRD (S/P/Bld) [Vol rate/Area] > 60 mL/Min [facility] Globulin Calc (S) [Mass/Vol] Ordered By: Gayathri Leal on 07-17-2022 Globulin (S) [Mass/Vol] 3.0 g/dL [facility] Glucose mean value [Mass/vol ume] in Blood Estimated from glycated hemoglobinOrdered By: Sang Bauer on 07-17-2022 Average glucose Estimated from glycated hemoglobin (Bld) [Mass/Vol] 114 mg/dL [facility] Hematocrit Auto (Bld) [Volum e fraction]Ordered By: Gayathri Leal on 07-17-2022 Hematocrit (Bld) [Volume fraction] 37.3 % 38.8-50.0 [facility] Hemoglobin A1c percentageOrd ered By: Sang Bauer on 07-17-2022 HbA1c (Bld) [Mass fraction] 5.6 % 4.3-5.6 [facility] Comment on above: Increased risk for d iabetes: 5.7 - 6.4diabetes: >6.4glycemic control for adults with diabetes: <7.0 Hemoglobin [Mass/volume] in BloodOrdered By: Gayathri Leal on 07-17-2022 Hemoglobin (Bld) [Mass/Vol] 12.3 g/dL 13.0-17.0 [facility] Ketones Auto test strip (U) [Mass/Vol]Ordered By: Gayathri Leal on 07-17-2022 Ketones (U) [Mass/Vol] 2+ Negative [facility] - Chemistry and C hemistry - challengeOrdered By: Gayathri Leal on 07-17-2022 Natriuretic peptide B (Bld) [Mass/Vol] 116.0 pg/mL 5-100 [facility] - CoagulationOrde red By: Gayathri Leal on 07-17-2022 PT Coag (PPP) [Time] 12.5 s 9.0-12.9 [facility] - Drug toxicology Ordered By: Gayathri Leal on 07-17-2022 Opiates Ql (U) Negative Negative [facility] - Hematology and Cell countsOrdered By: Gayathri Leal on 07-17-2022 Nucleated RBC/100 WBC (Bld) [Ratio] 0.1 % 0-0.5 [facility] - UrinalysisOrder ed By: Gayathri Leal on 07-17-2022 Hyaline casts LM Ql (Urine sed) None seen [LPF] 0-8 [facility] Leukocytes [#/volume] in Blo od by Automated countOrdered By: Gayathri Leal on 07-17-2022 WBC (Bld) [#/Vol] 7.8 10*3/uL 4.5-11.0 [facility] Lymphocytes Auto (Bld) [#/Vo l]Ordered By: Gayathri Leal on 07-17-2022 Lymphocytes (Bld) [#/Vol] 2.3 10*3/uL 1.00-4.8 [facility] Lymphocytes/100 WBC Auto (Bl d)Ordered By: Gayathri Leal on 07-17-2022 Lymphocytes/100 WBC (Bld) 29.5 % . [facility] MCH Auto (RBC) [Entitic mass ]Ordered By: Gayathri Leal on 07-17-2022 MCH (RBC) [Entitic mass] 30.2 pg 27.5-35.2 [facility] MCHC Auto (RBC) [Mass/Vol]Or dered By: Gayathri Leal on 07-17-2022 MCHC (RBC) [Mass/Vol] 33.1 g/dL 32.5-35.6 [facility] MCV Auto (RBC) [Entitic vol] Ordered By: Gayathri Leal on 07-17-2022 MCV (RBC) [Entitic vol] 91.5 fL 83.5-101 [facility] Monocyte %Ordered By: Zeinab Leal on 07-17-2022 Monocyte % 20 umol/L [facility] Monocytes Auto (Bld) [#/Vol] Ordered By: Gayathri Leal on 07-17-2022 Monocytes (Bld) [#/Vol] 0.4 10*3/uL 0.0-0.8 [facility] Monocytes/100 WBC Auto (Bld) Ordered By: Gayathri Leal on 07-17-2022 Monocytes/100 WBC (Bld) 5.4 % . [facility] Neutrophils Auto (Bld) [#/Vo l]Ordered By: Gayathri Leal on 07-17-2022 Neutrophils (Bld) [#/Vol] 4.9 10*3/uL 1.8-7.7 [facility] Neutrophils/100 WBC Auto (Bl d)Ordered By: Gayathri Leal on 07-17-2022 Neutrophils/100 WBC (Bld) 63.4 % . [facility] Nitrite Test strip Ql (U)Ord ered By: Gayathri Leal on 07-17-2022 Nitrite Ql (U) Negative Negative [facility] No Panel InformationOrdered By: Gayathri Leal on 07-17-2022 Estimated GFR () > 60 mL/Min [facility] Comment on above: GFR estimated refere nce range: According to KDOQI guidelines, <60 ml/min/1.73m2 is sufficient to diagnose a patient with chronic kidney disease. Pharmacy Creatinine Clearance (Chem N/A [facility] Phencyclidine Screen Ql (U)O rdered By: Gayathri Leal on 07-17-2022 Phencyclidine Ql (U) Negative Negative [facility] Platelet mean volume Auto (B ld) [Entitic vol]Ordered By: Gayathri Leal on 07-17-2022 Platelet mean volume (Bld) [Entitic vol] 10.2 fL 6.6-10.1 [facility] Platelet poor plasma interna tional normalized ratio (INR) by coagulation assay (relatOrdered By: Gayathri Leal on 07-17-2022 INR Coag (PPP) [Relative time] 1.1 {INR} [facility] Comment on above: INR Therapeutic [...] 07-17-2022 Platelets (Bld) [#/Vol] 239 10*3/uL 150-450 [facility] Protein Auto test strip (U) [Mass/Vol]Ordered By: Gayathri Leal on 07-17-2022 Protein (U) [Mass/Vol] Negative Negative [facility] Protein [Mass/volume] in Ser um or PlasmaOrdered By: Gayathri Leal on 07-17-2022 Protein [Mass/Vol] 6.1 g/dL 6.1-7.9 [facility] RBC Auto (Bld) [#/Vol]Ordere d By: Gayathri Leal on 07-17-2022 RBC (Bld) [#/Vol] 4.07 10*6/uL 3.90-5.60 [facility] Serum or plasma alanine del valle otransferase measurement without P-5'-P (enzymatic activiOrdered By: Gayathri Leal on 07-17-2022 ALT No additional P-5'-P [Catalytic activity/Vol] 13 U/L 10-60 [facility] Serum or plasma albumin/glob ulin mass ratioOrdered By: Gayathri Leal on 07-17-2022 Albumin/Globulin [Mass ratio] 1.0 {ratio} [facility] Serum or plasma alkaline gail sphatase measurement (enzymatic activity/volume)Ordered By: Gayathri Leal on 07-17-2022 ALP [Catalytic activity/Vol] 37 U/L 32-92 [facility] Serum or plasma anion gap de terminationOrdered By: Gayathri Leal on 07-17-2022 Anion gap [Moles/Vol] 12.1 mmol/L 6.0-15.0 [facility] Serum or plasma aspartate am inotransferase measurement (enzymatic activity/volume)Ordered By: Gayathri Leal on 07-17-2022 AST [Catalytic activity/Vol] 15 U/L 10-42 [facility] Serum or plasma calcium deepti urement (mass/volume)Ordered By: Gayathri Leal on 07-17-2022 Calcium [Mass/Vol] 8.8 mg/dL 8.2-10.2 [facility] Serum or plasma chloride deepak surement (moles/volume)Ordered By: Gayathri Leal on 07-17-2022 Chloride [Moles/Vol] 108 mmol/L 95-114 [facility] Serum or plasma creatine kin ase MB (CKMB)/total creatine kinase (CK) ratio by calculaOrdered By: Gayathri Leal on 07-17-2022 CK.MB Calc [Catalytic fraction] 2.6 % 0.00-2.50 [facility] Serum or plasma creatine kin ase MB measurement (mass/volume)Ordered By: Gayathri Leal on 07-17-2022 CK.MB [Mass/Vol] 3.6 ng/mL 0.6-6.3 [facility] Serum or plasma glucose deepti urement (mass/volume)Ordered By: Gayathri Leal on 07-17-2022 Glucose [Mass/Vol] 91 mg/dL 70-100 [facility] Comment on above: ADA recommended refe rence rangeRandom Glucose Reference Range is dependent on time and content of last meal. Glucose of more than 200 mg/dL in a nonstressed, ambulatory subject supports the diagnosis of Diabetes Mellitus. Serum or plasma non-glucuron idated bilirubin measurement (mass/volume)Ordered By: Gayathri Leal on 07-17-2022 Bilirubin.indirect [Mass/Vol] TNP [facility] Comment on above: Test not performed Serum or plasma potassium me asurement (moles/volume)Ordered By: Gayathri Leal on 07-17-2022 Potassium [Moles/Vol] 4.0 mmol/L 3.5-5.1 [facility] Serum or plasma sodium measu rement (moles/volume)Ordered By: Gayathri Leal on 07-17-2022 Sodium [Moles/Vol] 139 mmol/L 136-146 [facility] Serum or plasma total biliru bin measurement (mass/volume)Ordered By: Gayathri Leal on 07-17-2022 Bilirubin [Mass/Vol] 0.8 mg/dL 0.3-1.2 [facility] Serum or plasma total carbon dioxide measurement (moles/volume)Ordered By: Gayathri Leal on 07-17-2022 CO2 [Moles/Vol] 22.9 mmol/L 22.0-30.0 [facility] Serum or plasma urea nitroge n measurement (mass/volume)Ordered By: Gayathri Leal on 07-17-2022 Urea nitrogen [Mass/Vol] 12 mg/dL 9- [facility] Specific gravity Auto test s trip (U) [Rel density]Ordered By: Gayathri Leal on 07-17-2022 Specific gravity (U) [Rel density] 1.024 1.001-1.03 0 [facility] Squamous epithelial cells de tection in urine sediment by light microscopyOrdered By: Gayathri Leal on 07-17-2022 Epithelial cells.squamous LM Ql (Urine sed) None seen [HPF] 0-2 [facility] Troponin I.cardiac [Mass/vol ume] in Serum or Plasma by High sensitivity methodOrdered By: Sang Bauer on 07-17-2022 Troponin I.cardiac High sensitivity method [Mass/Vol] 7 pg/mL 0-20 [facility] Urine bacteria detection by automated methodOrdered By: Gayathri Leal on 07-17-2022 Bacteria Auto Ql (U) None seen None Seen [facility] Urine clarity by refractomet ry automatedOrdered By: Gayathri Leal on 07-17-2022 Clarity Refractometry automated (U) Clear Clear [facility] Urine cocaine detectionOrder ed By: Gayathri Leal on 07-17-2022 Cocaine Ql (U) Negative Negative [facility] Urine glucose measurement by automated test strip (mass/volume)Ordered By: Gayathri Leal on 07-17-2022 Glucose Auto test strip (U) [Mass/Vol] Normal mg/dL Normal [facility] Urine hemoglobin detection b y automated test stripOrdered By: Gayathri Leal on 07-17-2022 Hemoglobin Auto test strip Ql (U) Negative Negative [facility] Urine leukocyte esterase det ection by automated test stripOrdered By: Gayathri Leal on 07-17-2022 Leukocyte esterase Auto test strip Ql (U) 1+ Negative [facility] Urobilinogen Auto test strip (U) [Mass/Vol]Ordered By: Gayathri Leal on 07-17-2022 Urobilinogen (U) [Mass/Vol] Normal mg/dL Normal [facility] pH Auto test strip (U)Ordere d By: Gayathri Leal on 07-17-2022 pH (U) 6.5 [pH] 5.0-9.0 [facility] AMMONIAon 07-16-2022 Ammonia (P) [Moles/Vol] 44 umol/L Critically high -32 [facility] Comment on above: Performed By: #### A MM ####[facility] [address] [place] [address]Dr. Donna Malone BNPon 07-16-2022 Natriuretic peptide B (Bld) [Mass/Vol] 236.0 pg/mL Normal <=900.0 [facility] Comment on above: Performed By: #### C MP, BNP ####[facility] Ofpr[address] [place], [place] [address]Dr. Donna Malone CBC AUTO DIFFon 07-16-2022 BASO # 0.1 103/ul Normal 0.0-0.1 [facility] Comment on above: Performed By: #### C BC ####[facility] [address] [place], [place] [address]Dr. Donna Malone Basophils/100 WBC (Bld) 1.0 % Normal 0.2-2.0 [facility] Comment on above: Performed By: #### C BC ####[facility] Invaltq[address]by[address] [place], [place] [address]Dr. Donna Malone EO # 0.2 103/ul Normal 0.0-0.7 [facility] Comment on above: Performed By: #### C BC ####[facility] V[address]kuivlkp[address] [place], [place] [address]Dr. Donna Malone Eosinophils/100 WBC (Bld) 3.3 % Normal 0.9-7.0 [facility] Comment on above: Performed By: #### C BC ####[facility] Epgwwvwjxf[address] [place], [place] [address]Dr. Donna Malone Erythrocyte distribution width (RBC) [Ratio] 15.1 % Critically high 11.0-15.0 [facility] Comment on above: Performed By: #### C BC ####[facility] [address]xrlp[address] [place], [place] [address]Dr. Donna Malone Hematocrit (Bld) [Volume fraction] 36.1 % Critically low 42.0-54.0 [facility] Comment on above: Performed By: #### C BC ####[facility] [address] [place] [address]Dr. Donna Malone Hemoglobin (Bld) [Mass/Vol] 12.0 g/dL Critically low 14.0-18.0 [facility] Comment on above: Performed By: #### C BC ####[facility] [address]olt[address] [place] [address]Dr. Rubyyvan Malone IG # 0.01 10e3/ul Normal 0.00-0.03 [facility] Comment on above: Performed By: #### C BC ####[facility] Crifqeonmi[address] [place], [place] [address]Dr. Donna Malone IG % 0.2 % Normal 0.0-0.5 [facility] Comment on above: Performed By: #### C BC ####[facility] Ypunnjciq[address] [place], [place] [address]Dr. Donna Malone LYMPH # 2.5 103/ul Normal 1.2-3.8 [facility] Comment on above: Performed By: #### C BC ####[facility] Cesoevszva[address] [place], [place] [address]Dr. Donna Malone Lymphocytes/100 WBC (Bld) 41.1 % Normal 20.5-60.0 [facility] Comment on above: Performed By: #### C BC ####[facility] Wktff[address] [place], [place] [address]Dr. Donna Malone MANUAL DIFF REQ NO Normal [facility] Comment on above: Performed By: #### C BC ####[facility] Wuatyhvewd[address] [place], [place] [address]Dr. Donna Malone MCH (RBC) [Entitic mass] 30.6 pg Normal 25.9-34.0 [facility] Comment on above: Performed By: #### C BC ####[facility] Ujmaiwjhfl[address] [place], [place] [address]Dr. Donna Malone MCHC (RBC) [Mass/Vol] 33.2 g/dL Normal 29.9-35.2 [facility] Comment on above: Performed By: #### C BC ####[facility] [address] [place] [id number]. Donna Malone MCV (RBC) [Entitic vol] 92.1 fL Normal 80.0-94.0 [facility] Comment on above: Performed By: #### C BC ####[facility] [address]eg[address] [place] [id number]. Donna Malone MONO # 0.5 103/ul Normal 0.3-0.8 [facility] Comment on above: Performed By: #### C BC ####[facility] X[address] [place] [address]Dr. Donna Faisal Monocytes/100 WBC (Bld) 7.4 % Normal 1.7-12.0 [facility] Comment on above: Performed By: #### C BC ####[facility] S[address]uwfdzqx[address] [place], [place] [address]Dr. Donna Malone NEUT # 2.9 103/ul Normal 1.4-6.5 [facility] Comment on above: Performed By: #### C BC ####[facility] Ykdenkusba[address] [place], [place] [address]Dr. Donna Faisal Neutrophils/100 WBC (Bld) 47.0 % Normal 43.0-75.0 [facility] Comment on above: Performed By: #### C BC ####[facility] Xmniqyitxl[address] [place], [place] [address]Dr. Donna Faisal Platelet mean volume (Bld) [Entitic vol] 11.4 fL Normal 9.5-13.5 [facility] Comment on above: Performed By: #### C BC ####[facility] Y[address] [place], [place] [address]Dr. Donna Faisal PLT 206 103/ul Normal 150-450 [facility] Comment on above: Performed By: #### C BC ####[facility] [address] [place] [id number]. Donna Malone RBC 3.92 106/ul Critically low 4.70-6.10 [facility] Comment on above: Performed By: #### C BC ####[facility] [address] [place] [address]Dr. Donna Malone WBC 6.1 103/ul Normal 4.0-11.0 [facility] Comment on above: Performed By: #### C BC ####[facility] J[address]kg[address] [place] [address]Dr. Donna Malone ECHO LIMITED STUDYon 022 ECHO LIMITED STUDY Normal [facility] MRI BRAIN WO CONon 2 MRI BRAIN WO CON Normal [facility] PROF 14(COMP METB)on 022 Albumin [Mass/Vol] 2.8 g/dL Critically low 3.4-5.0 [facility] Comment on above: Performed By: #### C MP, BNP ####[facility] [address]eg[address]psm[address] [place], [place] [address]Dr. Donna Malone Albumin/Globulin [Mass ratio] 0.9 {ratio} Normal [facility] Comment on above: Performed By: #### C MP, BNP ####[facility] [address]onecv[address] [place] [address]Dr. Donna Malone ALP [Catalytic activity/Vol] 36 U/L Critically low 46-116 [facility] Comment on above: Performed By: #### C MP, BNP ####[facility] Ytrpsvlzmz[address] [place] [address]Dr. Donna Malone ALT [Catalytic activity/Vol] 13 U/L Critically low 16-63 [facility] Comment on above: Performed By: #### C MP, BNP ####[facility] [address]cguur[address] [place] [address]Dr. Donna Malone Anion gap [Moles/Vol] 10.4 mmol/L Normal [facility] Comment on above: Performed By: #### C MP, BNP ####[facility] Qxpkhamrfq[address] [place] [address]Dr. Donna Malone AST [Catalytic activity/Vol] 13 U/L Critically low 15-37 [facility] Comment on above: Performed By: #### C MP, BNP ####[facility] [address]ssuf[address] [place] [address]Dr. Donna Malone Bilirubin [Mass/Vol] 0.3 mg/dL Normal 0.2-1.0 [facility] Comment on above: Performed By: #### C MP, BNP ####[facility] Yujkytwelp[address] [place], [place] [address]Dr. Donna Malone Calcium [Mass/Vol] 8.2 mg/dL Critically low 8.5-10.1 [facility] [place] [facility] Comment on above: Performed By: #### C MP, BNP ####[facility] Zfeacoijss[address] [place], [place] [address]Dr. Donna Malone Chloride [Moles/Vol] 108 mmol/L Critically high 98-107 [facility] Comment on above: Performed By: #### C MP, BNP ####[facility] [address]rmdrsyh[address] [place], [place] [address]Dr. Donna Malone CO2 [Moles/Vol] 25.5 mmol/L Normal 21.0-32.0 [facility] Comment on above: Performed By: #### C MP, BNP ####[facility] Vmyortrsrn[address] [place], [place] [address]Dr. Donna Malone Creatinine [Mass/Vol] 0.92 mg/dL Normal 0.70-1.30 [facility] Comment on above: Performed By: #### C MP, BNP ####[facility] Viphhwyort[address] [place], [place] [address]Dr. Donna Malone EGFR-AF ZAMBIAN >60 Normal >=60 [facility] Comment on above: Performed By: #### C MP, BNP ####[facility] [address]azzxuhih[address] [place], [place] [address]Dr. Donna Malone EGFR-NON AF ZAMBIAN >60 Normal >=60 [facility] Comment on above: Performed By: #### C MP, BNP ####[facility] Ygohpqmbwy[address] [place], [place] [address]Dr. Donna Malone Globulin (S) [Mass/Vol] 3.2 g/dL Normal [facility] Comment on above: Performed By: #### C MP, BNP ####[facility] [address] [place] [address]Dr. Donna Malone Glucose [Mass/Vol] 76 mg/dL Normal 74-106 [facility] Comment on above: Performed By: #### C MP, BNP ####[facility] Ejhxmswfwi[address] [place] [address]Dr. Donna Malone Potassium [Moles/Vol] 3.9 mmol/L Normal 3.5-5.1 [facility] Comment on above: Performed By: #### C MP, BNP ####[facility] L[address]rxusuck[address] [place] [address]Dr. Donna Malone Protein [Mass/Vol] 6.0 g/dL Critically low 6.4-8.2 [facility] [place] [facility] Comment on above: Performed By: #### C MP, BNP ####[facility] W[address]ntgrfzp[address] [place], [place] [address]Dr. Donna Malone Sodium [Moles/Vol] 140 mmol/L Normal 136-145 [facility] Comment on above: Performed By: #### C MP, BNP ####[facility] Oehmgqsv[address] [place], [place] [address]Dr. Donna Malone Urea nitrogen [Mass/Vol] 12.0 mg/dL Normal 7.0-18.0 [facility] Comment on above: Performed By: #### C MP, BNP ####[facility] Ovcvivotsl[address] [place], [place] [address]Dr. Donna Malone Urea nitrogen/Creatinine [Mass ratio] 13.0 mg/mg Normal [facility] Comment on above: Performed By: #### C MP, BNP ####[facility] Tqpsudklim[address] [place], [place] [address]Dr. Donna Malone VIT B12 AND FOLATEon 022 Cobalamin (Vitamin B12) [Mass/Vol] 532.0 pg/mL Normal 193.0-986. 0 [facility] Comment on above: Performed By: #### B 12FOL ####[facility] [address]zaglgvvi[address] [place], [place] [address]Dr. Donna Malone FOLATE 13.60 ng/mL Normal 8.60-58.90 [facility] Comment on above: Performed By: #### B 12FOL ####[facility] Oobyufuafd[address] [place], [place] [address]Dr. Donna Malone AMMONIAon 07-15-2022 Ammonia (P) [Moles/Vol] 23 umol/L Normal 11-32 [facility] Comment on above: Performed By: #### A MM ####[facility] Zlxvpobyxk[address] [place], [place] [address]Dr. Donna Malone BLOOD GASES BTYon 07-15-2022 02 MODE ROOM AIR [facility] Comment on above: Performed By: #### A BG ####[facility] Zmspmgneol[address] [place], [place] [address]Dr. Donna Malone ALLENS TEST Positive [facility] Comment on above: Performed By: #### A BG ####[facility] Qxxlgsdedc[address] [place], [place] [address]Dr. Donna Malone Base excess Calc (Bld) [Moles/Vol] -1.3000 mmol/L Normal -2.0-2.0 [facility] Comment on above: Performed By: #### A BG ####[facility] Srpohxxolm[address] [place], [place] [address]Dr. Donna Malone BIPAP PRESSURE [facility] Comment on above: Performed By: #### A BG ####[facility] Vltwsoyroy[address] [place], [place] [address]Dr. Donna Malone CPAP [facility] Comment on above: Performed By: #### A BG ####[facility] Lorcpejbfc[address] [place], [place] [address]Dr. Donna Malone FIO2 [facility] Comment on above: Performed By: #### A BG ####[facility] Ed[address]wsrxztl[address] [place], [place] [address]Dr. Donna Malone HCO3 (Bld) [Moles/Vol] 22.7 mmol/L Normal 22.0-26.0 [facility] Comment on above: Performed By: #### A BG ####[facility] Ntvjptuima[address] [place] [address]Dr. Donna Malone LPM Normal [facility] Comment on above: Performed By: #### A BG ####[facility] Ypzaglxvxw[address] [place], [place] [address]Dr. Donna Malone MINUTE VOLUME Normal [facility] Comment on above: Performed By: #### A BG ####[facility] Urmxdcjhbg[address] [place] [address]Dr. Donna Malone Oxygen (Bld) [Partial pressure] 77.7 mm[Hg] Critically low 80.0-100.0 [facility] Comment on above: Performed By: #### A BG ####[facility] Nrrixsuxha[address] [place], [place] [address]Dr. Donna Malone Oxygen saturation in Blood 95.9 % Normal 95.0-100.0 [facility] Comment on above: Performed By: #### A BG ####[facility] H[address]nexfzym[address] [place], [place] [address]Dr. Donna Malone PCO2 33.0 mmHg Critically low 35.0-45.0 [facility] Comment on above: Performed By: #### A BG ####[facility] [address]sebf[address]hnx[address] [place], [place] [address]Dr. Donna Malone PEEP [facility] Comment on above: Performed By: #### A BG ####[facility] Msadyzlcwo[address] [place], [place] [address]Dr. Donna Malone pH (Bld) 7.446 [pH] Normal 7.350-7.45 0 [facility] Comment on above: Performed By: #### A BG ####[facility] Fzykkgklqd[address] [place], [place] [address]Dr. Donna Malone PIP [place] [facility] Comment on above: Performed By: #### A BG ####[facility] Teirff[address]ruy[address] [place], [place] [address]Dr. Donna Malone PS [facility] Comment on above: Performed By: #### A BG ####[facility] Cksd[address]ou[address] [place], [place] [address]Dr. Donna Malone PUNCTURE SITE RB Normal [facility] Comment on above: Performed By: #### A BG ####[facility] [address]ihrvpbca[address] [place] [address]Dr. Donna Malone RATE Normal [facility] Comment on above: Performed By: #### A BG ####[facility] [address]ownnd[address] [place] [address]Dr. Donna Malone VENT MODE Normal [facility] Comment on above: Performed By: #### A BG ####[facility] Bxxbwkspml[address] [place] [address]Dr. Donna Malone [place] [facility] Comment on above: Performed By: #### A BG ####[facility] [address]qttud[address]udz[address] [place] [address]Dr. Donna Malone BNPon 07-15-2022 Natriuretic peptide B (Bld) [Mass/Vol] 111.0 pg/mL Normal <=900.0 [facility] Comment on above: Performed By: #### B ASPHALT TAR [employer] GRAVEL ROOFER, CMP, CMADM ####[facility] [address]ib[address]il[address] [place] [address]Dr. Rubyyvan Malone CARDIAC MJ 3-6on 2 CK [Catalytic activity/Vol] 102 U/L Normal 39-308 [facility] Comment on above: Performed By: #### C MREP ####[facility] Whlvsttuuy[address] [place] [address]Dr. Rubyyvan Malone CK.MB [Mass/Vol] 3.67 ng/mL Critically high <=3.60 [facility] Comment on above: Performed By: #### C MREP ####[facility] Zzspudymcp[address] [place] [address]Dr. Donna Malone HSTROP 13.1 pg/mL Normal 4.0-76.1 [facility] Comment on above: Result Comment: CUT- OFF POINTS HAVE BEEN ESTABLISHED BASED ON THE FOURTH UNIVERSAL DEFINITIONS OF MYOCARDIALINFARCTION. THE UPPER REFERENCE LIMIT (URL) OF TROPONIN, DEFINED THE 99TH PERCENTILE OFcTnI DISTRIBUTION IN A REFERENCE POPULATION, HAS BEEN CONFIRMED THE DECISION THRESHOLDFOR AK DIAGNOSIS. Performed By: #### C MREP ####[facility] [address] [place], [place] [address]Ms. Donna Malone CK [Catalytic activity/Vol] 89 U/L Normal 39-308 [facility] Comment on above: Performed By: #### C MREP ####[facility] [address]ocuvfip[address] [place], [place] [address]Me. Donna Malone CK.MB [Mass/Vol] 3.37 ng/mL Normal <=3.60 [facility] Comment on above: Performed By: #### C MREP ####[facility] Q[address]ummncmp[address] [place] [id number]. Donna Malone HSTROP 11.2 pg/mL Normal 4.0-76.1 [facility] Comment on above: Result Comment: CUT- OFF POINTS HAVE BEEN ESTABLISHED BASED ON THE FOURTH UNIVERSAL DEFINITIONS OF MYOCARDIALINFARCTION. THE UPPER REFERENCE LIMIT (URL) OF TROPONIN, DEFINED THE 99TH PERCENTILE OFcTnI DISTRIBUTION IN A REFERENCE POPULATION, HAS BEEN CONFIRMED THE DECISION THRESHOLDFOR AK DIAGNOSIS. Performed By: #### C MREP ####[facility] [address]lsvxsu[address] [place] [id number]. Donna Malone CARDIAC MJ ADMITon 022 CK [Catalytic activity/Vol] 76 U/L Normal 39-308 [facility] Comment on above: Performed By: #### B ASPHALT TAR [employer] GRAVEL ROOFER, CMP, CMADM ####[facility] [address]fsq[address]idel[address] [place] [id number]. Donna Malone CK.MB [Mass/Vol] 2.59 ng/mL Normal <=3.60 [facility] Comment on above: Performed By: #### B ASPHALT TAR AND GRAVEL ROOFER, CMP, CMADM ####[facility] K[address]ft[address]kvh[address] [place] [id number]. Donna Malone HSTROP 10.1 pg/mL Normal 4.0-76.1 [facility] Comment on above: Result Comment: CUT- OFF POINTS HAVE BEEN ESTABLISHED BASED ON THE FOURTH UNIVERSAL DEFINITIONS OF MYOCARDIALINFARCTION. THE UPPER REFERENCE LIMIT (URL) OF TROPONIN, DEFINED THE 99TH PERCENTILE OFcTnI DISTRIBUTION IN A REFERENCE POPULATION, HAS BEEN CONFIRMED THE DECISION THRESHOLDFOR [place] DIAGNOSIS. Performed By: #### B ASPHALT TAR [employer] GRAVEL ROOFER, CMP, CMADM ####[facility] Hrzoxhfabm[address] [place] [address]Dr. Donna Malone BINDU 109 ng/mL Critically high 16-96 [facility] Comment on above: Performed By: #### B ASPHALT TAR [employer] GRAVEL ROOFER, CMP, CMADM ####[facility] Ebuaktsqhl[address] [place] [address]Dr. Donna Malone CBC AUTO DIFFon 07-15-2022 BASO # 0.0 103/ul Normal 0.0-0.1 [facility] Comment on above: Performed By: #### C BC ####[facility] Fskgmsyvap[address] [place] [address]Dr. Donna Malone Basophils/100 WBC (Bld) 0.7 % Normal 0.2-2.0 [facility] Comment on above: Performed By: #### C BC ####[facility] [address]xus[address] [place], [place] [address]Dr. Donna Malone EO # 0.1 103/ul Normal 0.0-0.7 [facility] Comment on above: Performed By: #### C BC ####[facility] [address]kkvbavjr[address] [place], [place] [address]Dr. Dnona Malone Eosinophils/100 WBC (Bld) 2.3 % Normal 0.9-7.0 [facility] Comment on above: Performed By: #### C BC ####[facility] Fyxoevtjqv[address] [place], [place] [address]Dr. Donna Malone Erythrocyte distribution width (RBC) [Ratio] 15.2 % Critically high 11.0-15.0 [facility] Comment on above: Performed By: #### C BC ####[facility] [address]jvzmvdo[address] [place], [place] [address]Dr. Donna Malone Hematocrit (Bld) [Volume fraction] 34.8 % Critically low 42.0-54.0 [facility] Comment on above: Performed By: #### C BC ####[facility] Agnwudnwcu[address] [place], [place] [address]Dr. Donna Malone Hemoglobin (Bld) [Mass/Vol] 11.4 g/dL Critically low 14.0-18.0 [facility] Comment on above: Performed By: #### C BC ####[facility] [address]kvv[address] [place] [address]DrElizabeth Beltranyvan Malone IG # 0.01 10e3/ul Normal 0.00-0.03 [facility] Comment on above: Performed By: #### C BC ####[facility] Pdphjjhcsw8409 [place] [address]Dr. Rubyyvan Malone IG % 0.2 % Normal 0.0-0.5 [facility] Comment on above: Performed By: #### C BC ####[facility] [address]zovboxu[address] [place], [place] [address]DrElizabeth Malone LYMPH # 1.6 103/ul Normal 1.2-3.8 [facility] Comment on above: Performed By: #### C BC ####[facility] [address]mmjaybnr[address] [place], [place] [address]DrElizabeth Rubyyvan Malone Lymphocytes/100 WBC (Bld) 26.4 % Normal 20.5-60.0 [facility] Comment on above: Performed By: #### C BC ####[facility] O[address] [place], [place] [address]DrElizabeth Rubyyvan Malone MANUAL DIFF REQ NO Normal [facility] Comment on above: Performed By: #### C BC ####[facility] Clpophppqo[address] [place], [place] [address]DrElizabeth Rubyyvan Malone MCH (RBC) [Entitic mass] 30.7 pg Normal 25.9-34.0 [facility] Comment on above: Performed By: #### C BC ####[facility] Cxemnxgykl[address] [place], [place] [address]DrElizabeth Rubyyvan Malone MCHC (RBC) [Mass/Vol] 32.8 g/dL Normal 29.9-35.2 [facility] Comment on above: Performed By: #### C BC ####[facility] Rijvimgllg[address] [place], [place] [address]DrElizabeth Rubyyvan Malone MCV (RBC) [Entitic vol] 93.8 fL Normal 80.0-94.0 [facility] Comment on above: Performed By: #### C BC ####[facility] Obiyscyylb[address] [place] [address]DrElizabeth Malone MONO # 0.5 103/ul Normal 0.3-0.8 [facility] Comment on above: Performed By: #### C BC ####[facility] Fmkqpkwkil1179 [place] [address]DrElizabeth Malone Monocytes/100 WBC (Bld) 7.5 % Normal 1.7-12.0 [facility] Comment on above: Performed By: #### C BC ####[facility] Nzkpsordqm[address] [place], [place] [address]DrElizabeth Malone NEUT # 3.8 103/ul Normal 1.4-6.5 [facility] Comment on above: Performed By: #### C BC ####[facility] Pjhmesqpfm[address] [place], [place] [address]DrElizabeth Malone Neutrophils/100 WBC (Bld) 62.9 % Normal 43.0-75.0 [facility] Comment on above: Performed By: #### C BC ####[facility] Hgaxprdbce[address]67[address] [place], [place] [address]DrElizabeth Malone Platelet mean volume (Bld) [Entitic vol] 11.7 fL Normal 9.5-13.5 [facility] Comment on above: Performed By: #### C BC ####[facility] Kcbfpljzkj[address] [place], [place] [address]Dr. Donna Malone PLT 220 103/ul Normal 150-450 [facility] Comment on above: Performed By: #### C BC ####[facility] Jdjvixnrax[address] [place], [place] [id number] Malone RBC 3.71 106/ul Critically low 4.70-6.10 [facility] Comment on above: Performed By: #### C BC ####[facility] Hlebdiivhq[address] [place] [id number] Malone WBC 6.0 103/ul Normal 4.0-11.0 [facility] Comment on above: Performed By: #### C BC ####[facility] Fwjpsthaqn[address] [place], [place] [address]Wf. Donna Malone CT CSPINE WO CONon 2 CT CSPINE WO CON Normal [facility] CT HEAD WO CONon 07-15-2022 CT HEAD WO CON Normal [facility] CTA NECK WO W CONon 07-15-20 22 CTA NECK WO W CON Normal [facility] CULTURE URINEon 07-15-2022 CULTURE URINE Culture Observations : LIGHT GROWTH OF MIXED SKIN MICHAEL. NO POTENTIAL PATHOGENS SEEN. Normal [facility] Comment on above: Performed By: #### U RCX ####[facility] Esb[address]weu[address] [place], [place] [address]Dh. Donna Faisal [facility] ([facility])on SARS-CoV-2 (COVID-19) RNA JOSÉ MIGUEL+probe Ql (Unsp spec) Not detected Normal NOT DETECTED [facility] Comment on above: Result Comment: When [...] for this test is supported by the [place] of Health and Human Service's declaration that [...] be used). Performed By: #### C VDTBH ####[facility] Etgqfqvonu55[address] [place], [place] [address]Ii. Rubyyvan Malone DEPAKENE/VALPROICon 07-15-20 22 DEPAKENE 53.6 ug/ml Normal 50.0-100.0 [facility] Comment on above: Performed By: #### V ALP ####[facility] Zyutuxajxp[address] [place] [address]Dr. Donna Malone DRUG SCREEN RAPID (URINE)on 07-15-2022 AMP Negative Normal NEGATIVE [facility] Comment on above: Performed By: #### D RUGDANNIELLED, ERUR ####[facility] Nfoxfqnvyu[address] [place] [address]Dr. Donna Faisal BAR Negative Normal NEGATIVE [facility] Comment on above: Performed By: #### D RUGRPD, ERUR ####[facility] Asgvwadkge[address] [place] [address]Dr. Rubyyvan Malone BUP Negative Normal NEGATIVE [facility] Comment on above: Performed By: #### D SHARONA, ERUR ####[facility] Ugnkzxmrxe33[address] [place] [address]Dr. Rubyyvan Faisal BZO Positive Abnormal NEGATIVE [facility] Comment on above: Performed By: #### D KAMRYND, ERUR ####[facility] Zsjxlkpvwd[address] [place] [address]Dr. Donna Faisal EVONNE Negative Normal NEGATIVE [facility] Comment on above: Performed By: #### D SHARONA, ERUR ####[facility] Apixprftcp1227 [place] [address]Dr. Donna Malone CUT-OFFS SEE BELOW Normal [facility] Comment on above: Result Comment: AMP [...] ng/mL Performed By: #### D RUGRPD, ERUR ####[facility] Qeplfeexou5[address] [place] [phone]. Donna Malone DRUG CUT HEADER DRUG CLASS TEST SYST EM CUT-OFF CONCENTRATIONS ARE FOLLOWS: Normal [facility] Comment on above: Performed By: #### D SHARONA, ERUR ####[facility] Myvxgoeasy7751 [place] [phone]. Donna Malone mAMP Negative Normal NEGATIVE [facility] Comment on above: Performed By: #### D SHARONA, ERUR ####[facility] Tajoozhrmt[address] [place] [phone]. Donna Malone MTD Negative Normal NEGATIVE [facility] Comment on above: Performed By: #### D SHARONA, ERUR ####[facility] Mmxeifmicq2726 [place] [phone]. Donna Malone OPI Negative Normal NEGATIVE [facility] Comment on above: Performed By: #### D SHARONA, ERUR ####[facility] Skrebenqgy3734 [place] [address]Dr. Yilan Malone OXY Negative Normal NEGATIVE [facility] Comment on above: Performed By: #### Calvin TABOR, ERUR ####[facility] Yvxpakzytd2[address] [place] [phone]. Donna Malone PCP Negative Normal NEGATIVE [facility] Comment on above: Performed By: #### Calvin TABOR, ERUR ####[facility] Wpvnspkchy54[address] [place] [address]Dr. Rubylan Malone PPX Negative Normal NEGATIVE [facility] Comment on above: Performed By: #### D SHARONA, ERUR ####[facility] Yajfjldxxg0850 [place] [phone]. Donna Malone TCA Positive Abnormal NEGATIVE [facility] Comment on above: Performed By: #### D SHARONA, ERUR ####[facility] Rwcmvocrye5166 [place] [phone]. Donna Malone THC Negative Normal NEGATIVE [facility] Comment on above: Performed By: #### Calvin TABOR, ERUR ####[facility] Sxzvxwokfc9479 [place] [address]Dr. Donna Malone ER URINE PROFILEon 2 Bilirubin Ql (U) Negative Normal NEGATIVE [facility] Comment on above: Performed By: #### Calvin TABOR, ERUR ####[facility] Jrnesrtuwv3023 [place] [address]Dr. Rubyyvan Malone Clarity (U) CLEAR Normal CLEAR [facility] Comment on above: Performed By: #### Calvin TABOR ERUR ####[facility] Uyomzujbbw[address] [place], [place] [address]Dr. Donna Malone Color (U) YELLOW Normal YELLOW [facility] Comment on above: Performed By: #### Calvin TABOR ERUR ####[facility] Rjbqcakfht[address] [place], [place] [address]Dr. Donna Malone ERUAHD A micrscopic examina tion will be performed if indicated. Normal [facility] Comment on above: Performed By: #### Calvin TABOR ERUR ####[facility] Wxvwmnjcfn[address] [place], [place] [address]Dr. Donna Malone Glucose Ql (U) Negative Normal NEGATIVE [facility] Comment on above: Performed By: #### Calvin TABOR ERUR ####[facility] Mxtjzhaufs[address] [place], [place] [address]Dr. Donna Malone Hemoglobin Ql (U) Negative Normal NEGATIVE [facility] Comment on above: Performed By: #### Calvin TABOR ERUR ####[facility] Sstelyzpzo[address] [place], [place] [address]Dr. Donna Malone Ketones Ql (U) 15 mg/dl Abnormal NEGATIVE [facility] Comment on above: Performed By: #### Calvin TABOR ERUR ####[facility] Kyicbzhrlt6826[address] [place], [place] [address]Dr. Rubylan Malone LEUKOCYTES Negative Normal NEGATIVE [facility] Comment on above: Performed By: #### Calvin TABOR ERUR ####[facility] Swarmnqbrk260[address] [place], [place] [address]Dr. Donna Malone Nitrite Ql (U) Negative Normal NEGATIVE [facility] Comment on above: Performed By: #### D SHARONA, ERUR ####[facility] Xltdajiwld[address] [place], [place] [address]Dr. Donna Malone pH (U) 6.0 [pH] Normal 5-9 [facility] Comment on above: Performed By: #### D SHARONA, ERUR ####[facility] Ncdkijbmwr[address] [place], [place] [address]Dr. Donna Malone SPEC GRAVITY >=1.030 Abnormal 1.005-<=1. 025 [facility] Comment on above: Performed By: #### Calvin TABOR, ERUR ####[facility] Qexojhqdfz[address] [place], [place] [address]Dr. Donna Malone UA PROTEIN TRACE Normal NEGATIVE/ TRACE [facility] Comment on above: Performed By: #### Calvin TABOR, ERUR ####[facility] Xinramjowd7[address] [place], [place] [address]Dr. Donna Malone UR MICRO IND NOT INDICATED Normal [facility] Comment on above: Performed By: #### D SHARONA ERUR ####[facility] Gipkxtbqfp[address] [place], [place] [address]Dr. Donna Malone Urobilinogen Qn (U) 0.2 {Jermain'U}/dL Normal 0.2 - 1. 0 [facility] Comment on above: Performed By: #### Calvin TABOR, ERUR ####[facility] Iwcpxumhds[address] [place], [place] [address]Dr. Donna Malone ETHANOL (BLD ALC)on 07-15-20 22 ALC NOTE NOTE: 80 mg/dl is th e legal limit for a blood alcohol level Normal [facility] Comment on above: Performed By: #### E TH ####[facility] Vhquvddglk[address] [place], [place] [address]Dr. Donna Malone Ethanol [Mass/Vol] mg/dL Normal [facility] Comment on above: Performed By: #### E TH ####[facility] Lrwhbrsavk[address] [place], [place] [address]Dr. Donna Malone LACTATE/LACTIC ACIDon 2021 Lactate [Moles/Vol] 1.3 mmol/L Normal 0.4-1.9 [facility] Comment on above: Performed By: #### L ACT ####[facility] Hoxh[address]ujhe[address] [place] [address]Dr. Donna Malone PROF 14(COMP METB)on 022 Albumin [Mass/Vol] 2.9 g/dL Critically low 3.4-5.0 [facility] [place] [facility] Comment on above: Performed By: #### B ASPHALT TAR AND GRAVEL ROOFER, CMP, CMADM ####[facility] Yffubtosml34[address] [place] [address]Dr. Donna Malone Albumin/Globulin [Mass ratio] 0.9 {ratio} Normal [facility] Comment on above: Performed By: #### B ASPHALT TAR [employer] GRAVEL ROOFER, CMP, CMADM ####[facility] Obmtzefpno[address] [place] [address]Dr. Donna Malone ALP [Catalytic activity/Vol] 37 U/L Critically low 46-116 [facility] Comment on above: Performed By: #### B ASPHALT TAR [employer] GRAVEL ROOFER, CMP, CMADM ####[facility] Xacsuufqxy[address] [place] [address]Dr. Donna Malone ALT [Catalytic activity/Vol] 10 U/L Critically low 16-63 [facility] Comment on above: Performed By: #### B ASPHALT TAR [employer] GRAVEL ROOFER, CMP, CMADM ####[facility] Qmtsahctvg[address]66 [place] [address]Dr. Donna Malone Anion gap [Moles/Vol] 8.0 mmol/L Normal [facility] Comment on above: Performed By: #### B ASPHALT TAR [employer] GRAVEL ROOFER, CMP, CMADM ####[facility] Zpwrympsbc6693 [place] [address]Dr. Donna Malone AST [Catalytic activity/Vol] 12 U/L Critically low 15-37 [facility] Comment on above: Performed By: #### B ASPHALT TAR [employer] GRAVEL ROOFER, CMP, CMADM ####[facility] Pjnntnoqjx[address]381 [place] [address]Dr. Donna Malone Bilirubin [Mass/Vol] 0.3 mg/dL Normal 0.2-1.0 [facility] Comment on above: Performed By: #### B ASPHALT TAR [employer] GRAVEL ROOFER, CMP, CMADM ####[facility] Zxuqelyrll4642 [place] [address]Dr. Donna Malone Calcium [Mass/Vol] 7.9 mg/dL Critically low 8.5-10.1 Th e [facility] Comment on above: Performed By: #### B ASPHALT TAR [employer] GRAVEL ROOFER, CMP, CMADM ####[facility] Kvucotgvmn1463 [place] [address]Dr. Donna Malone Chloride [Moles/Vol] 107 mmol/L Normal 98-107 [facility] Comment on above: Performed By: #### B ASPHALT TAR [employer] GRAVEL ROOFER, CMP, CMADM ####[facility] Qcvqamaetk[address] [place], [place] [address]Dr. Donna Malone CO2 [Moles/Vol] 27.1 mmol/L Normal 21.0-32.0 [facility] Comment on above: Performed By: #### B ASPHALT TAR [employer] GRAVEL ROOFER, CMP, CMADM ####[facility] Vvhaldttgl[address] [place], [place] [address]Dr. Donna Malone Creatinine [Mass/Vol] 0.99 mg/dL Normal 0.70-1.30 [facility] Comment on above: Performed By: #### B ASPHALT TAR [employer] GRAVEL ROOFER, CMP, CMADM ####[facility] C[address]spwqddsd[address] [place], [place] [address]Dr. Donna Malone EGFR-AF ZAMBIAN >60 Normal >=60 [facility] Comment on above: Performed By: #### B ASPHALT TAR [employer] GRAVEL ROOFER, CMP, CMADM ####[facility] Gneitzhzvc[address] [place], [place] [address]Dr. Donna Malone EGFR-NON AF ZAMBIAN >60 Normal >=60 [facility] Comment on above: Performed By: #### B ASPHALT TAR [employer] GRAVEL ROOFER, CMP, CMADM ####[facility] Uyzkklsucd7[address] [place], [place] [address]Dr. Donna Malone Globulin (S) [Mass/Vol] 3.3 g/dL Normal [facility] Comment on above: Performed By: #### B ASPHALT TAR AND GRAVEL ROOFER, CMP, CMADM ####[facility] Xxfcrkqupe90[address] [place], [place] [address]Dr. Rubyyvan Malone Glucose [Mass/Vol] 101 mg/dL Normal 74-106 [facility] Comment on above: Performed By: #### B ASPHALT TAR AND GRAVEL ROOFER, CMP, CMADM ####[facility] Efovydkadg8356 [place] [address]Dr. Rubyyvan Malone Potassium [Moles/Vol] 4.1 mmol/L Normal 3.5-5.1 [facility] Comment on above: Performed By: #### B ASPHALT TAR AND GRAVEL ROOFER, CMP, CMADM ####[facility] Dieokwkzgb6373 [place] [address]Dr. Donna Malone Protein [Mass/Vol] 6.2 g/dL Critically low 6.4-8.2 [facility] [place] [facility] Comment on above: Performed By: #### B ASPHALT TAR AND GRAVEL ROOFER, CMP, CMADM ####[facility] Uktmtgzqnl[address] [place], [place] [address]Dr. Donna Malone Sodium [Moles/Vol] 138 mmol/L Normal 136-145 [facility] Comment on above: Performed By: #### B ASPHALT TAR AND GRAVEL ROOFER, CMP, CMADM ####[facility] Lbokmnzdqk9584 [place] [address]Dr. Rubyyvan Malone Urea nitrogen [Mass/Vol] 16.0 mg/dL Normal 7.0-18.0 [facility] Comment on above: Performed By: #### B ASPHALT TAR AND GRAVEL ROOFER, CMP, CMADM ####[facility] Gohntbxkyn6905 [place] [address]Dr. Donna Malone Urea nitrogen/Creatinine [Mass ratio] 16.2 mg/mg Normal [facility] Comment on above: Performed By: #### B ASPHALT TAR AND GRAVEL ROOFER, CMP, CMADM ####[facility] Ymmzzpuyha[address] [place] [address]Dr. Donna Malone PROTIMEon 07-15-2022 INR Coag (PPP) [Relative time] 1.06 {INR} Normal [facility] Comment on above: Performed By: #### P T, PTT ####[facility] Vcgbukcrle[address] [place], [place] [address]Dr. Donna Malone INR GUIDELINES SEE BELOW Normal [facility] Comment on above: Result Comment: FLORESITA RED INR: 2.0 - 3.0 CONDITIONS NOT LISTED BELOW 2.5 - 3.5 FOR PROSTHETIC HEART VALVE REPLACEMENT 2.5 - 3.5 RECURRENT THROMBOSIS Performed By: #### P T, PTT ####[facility] [address]ugtbaqhr[address] [place], [place] [address]Dr. Donna Malone PT Coag (PPP) [Time] 11.4 s Normal 9.0-11.6 [facility] Comment on above: Performed By: #### P T, PTT ####[facility] Mapdxcenop90[address] [place], [place] [address]Dr. Donna Malone PTTon 07-15-2022 aPTT Coag (Bld) [Time] 30.8 s Normal 22.3-36.2 [facility] Comment on above: Performed By: #### P T, PTT ####[facility] Cuiuxvwrns[address] [place], [place] [address]Dr. Donna Malone XR CHEST 1 Von 07-15-2022 XR CHEST 1 V Normal [facility] CULTURE URINEon 06-24-2022 CULTURE URINE Normal [facility] Comment on above: Performed By: #### U RCX ####[facility] Bnpkwqemce[address] [place], [place] [address]Dr. Donna Malone UA RANDOM W/MICROSCOPICon BACTERIA NONE SEEN Normal NONE SEEN [facility] Comment on above: Performed By: #### U AMIC ####[facility] Evszaegwzy7[address] [place], [place] [address]Dr. Donna Malone Bilirubin Ql (U) Negative Normal NEGATIVE [facility] Comment on above: Performed By: #### U AMIC ####[facility] Dqflxrukwa[address] [place], [place] [address]Dr. Donna Malone CAST NONE SEEN Normal NONE SEEN [facility] Comment on above: Performed By: #### U AMIC ####[facility] Sggggsytot[address] [place], [place] [address]Dr. Donna Malone Clarity (U) CLEAR Normal CLEAR [facility] Comment on above: Performed By: #### U AMIC ####[facility] Sdqorvfdmk4156 [place] [address]Dr. Donna Malone Color (U) DK. YELLOW Normal YELLOW [facility] Comment on above: Performed By: #### U AMIC ####[facility] Zxgexfbyxe[address] [place], [place] [address]Dr. Donna Malone Crystals LM Nom (Urine sed) NONE SEEN Normal NONE SEEN [facility] Comment on above: Performed By: #### U AMIC ####[facility] Cowfzxmufm528[address] [place], [place] [address]Dr. Donna Malone Epithelial cells LM Ql (Urine sed) NONE SEEN Normal NONE SEEN /RARE [facility] Comment on above: Performed By: #### U AMIC ####[facility] Lofabqnhml39[address] [place], [place] [address]Dr. Donna Malone Glucose Ql (U) 100 mg/dl Abnormal NEGATIVE [facility] Comment on above: Performed By: #### U AMIC ####[facility] Ffjlcvrnkg[address] [place], [place] [address]Dr. Donna Malone Hemoglobin Ql (U) Negative Normal NEGATIVE [facility] Comment on above: Performed By: #### U AMIC ####[facility] Lkcfxpogbi65[address] [place], [place] [address]Dr. Donna Malone Ketones Ql (U) TRACE Abnormal NEGATIVE [facility] Comment on above: Performed By: #### U AMIC ####[facility] Kcmpoakxnp[address] [place], [place] [address]Dr. Donna Malone LEUKOCYTES Negative Normal NEGATIVE [facility] Comment on above: Performed By: #### U AMIC ####[facility] Lgogrlliro339[address] [place], [place] [address]Dr. Donna Malone MUCOUS SMALL Abnormal NONE SEEN [facility] Comment on above: Performed By: #### U AMIC ####[facility] Vfryvvvtbc17[address] [place], [place] [address]Dr. Donna Malone Nitrite Ql (U) Negative Normal NEGATIVE [facility] Comment on above: Performed By: #### U AMIC ####[facility] Pqdgbcfubh[address] [place], [place] [address]Dr. Donna Malone pH (U) 6.0 [pH] Normal 5-9 [facility] Comment on above: Performed By: #### U AMIC ####[facility] Wiqdnrekky25[address] [place] [address]Dr. Donna Malone RBC NONE SEEN Abnormal 0-2 [facility] Comment on above: Performed By: #### U AMIC ####[facility] Pwvxlrvtea19[address] [place] [id number]. Donna Malone SPEC GRAVITY 1.030 Abnormal 1.005-<=1. 025 [facility] Comment on above: Performed By: #### U AMIC ####[facility] Lpuheswsgl8651 [place] [address]Dr. Donna Malone UA PROTEIN Negative Normal NEGATIVE/ TRACE [facility] Comment on above: Performed By: #### U AMIC ####[facility] Qwdzjhzxqf5300 [place] [address]Dr. Donna Malone Urobilinogen Qn (U) 0.2 {Jermain'U}/dL Normal 0.2 - 1. 0 [facility] Comment on above: Performed By: #### U AMIC ####[facility] Ekugdoggxv5713 [place] [address]Dr. Donna Malone WBC 2-5 Abnormal NONE SEEN [facility] Comment on above: Performed By: #### U AMIC ####[facility] Wqjwcvlzru4135 [place] [phone]. Donna Malone COMPLIANCE DRUG SCREENon PDF . Normal [facility] Comment on above: Performed By: #### D SDOALC ####[facility] Ntaeotohdx57[address] [place] [address]Dr. Donna Malone Summary FINAL Normal [facility] Comment on above: Result Comment: =====TOXASSURE [...] call . Performed By: #### D SDOALC ####[facility] Ixstdovkoe[address] [place], [place] [address]Dr. Donna Malone CBC AUTO DIFFon 05-16-2022 BASO # 0.0 103/ul Normal 0.0-0.1 [facility] Comment on above: Performed By: #### C BC ####[facility] Fgbpdpvfqq[address] [place], [place] [address]Dr. Donna Malone Basophils/100 WBC (Bld) 0.4 % Normal 0.2-2.0 [facility] Comment on above: Performed By: #### C BC ####[facility] Oxyjftublt[address] [place], [place] [address]Dr. Donna Malone EO # 0.1 103/ul Normal 0.0-0.7 [facility] Comment on above: Performed By: #### C BC ####[facility] Xsspoaspvn98[address] [place], [place] [address]Dr. Donna Malone Eosinophils/100 WBC (Bld) 0.9 % Normal 0.9-7.0 [facility] Comment on above: Performed By: #### C BC ####[facility] Uoikptnxoi0353 [place] [address]Dr. Donna Malone Erythrocyte distribution width (RBC) [Ratio] 14.9 % Normal 11.0-15.0 [facility] Comment on above: Performed By: #### C BC ####[facility] Tqefccquol[address]25 [place] [address]Dr. Donna Malone Hematocrit (Bld) [Volume fraction] 41.0 % Critically low 42.0-54.0 [facility] Comment on above: Performed By: #### C BC ####[facility] Vbowfkreyh[address] [place], [place] [address]Dr. Donna Malone Hemoglobin (Bld) [Mass/Vol] 13.3 g/dL Critically low 14.0-18.0 [facility] Comment on above: Performed By: #### C BC ####[facility] Kltvfejsre[address] [place], [place] [address]Dr. Donna Malone IG # 0.03 10e3/ul Normal 0.00-0.03 [facility] Comment on above: Performed By: #### C BC ####[facility] Fhaqoafzjs[address] [place], [place] [address]Dr. Donna Malone IG % 0.3 % Normal 0.0-0.5 [facility] Comment on above: Performed By: #### C BC ####[facility] Uclnmjcoic[address] [place], [place] [address]Dr. Donna Malone LYMPH # 1.4 103/ul Normal 1.2-3.8 [facility] Comment on above: Performed By: #### C BC ####[facility] Eedqqrbeaa[address] [place], [place] [address]Dr. Donna Malone Lymphocytes/100 WBC (Bld) 15.3 % Critically low 20.5-60.0 [facility] Comment on above: Performed By: #### C BC ####[facility] Dqsbhqwatz[address] [place], [place] [address]Dr. Donna Malone MANUAL DIFF REQ NO Normal [facility] Comment on above: Performed By: #### C BC ####[facility] Ruqbaqwluk225[address] [place] [id number]. Donna Malone MCH (RBC) [Entitic mass] 29.4 pg Normal 25.9-34.0 [facility] Comment on above: Performed By: #### C BC ####[facility] Iuzrzrgmgz8775 [place] [id number]. Donna Malone MCHC (RBC) [Mass/Vol] 32.4 g/dL Normal 29.9-35.2 [facility] Comment on above: Performed By: #### C BC ####[facility] Ftepbvzrpz7979 [place] [id number]. Donna Malone MCV (RBC) [Entitic vol] 90.5 fL Normal 80.0-94.0 [facility] Comment on above: Performed By: #### C BC ####[facility] Xmatjiszka[address] [place], [place] [address]Dr. Donna Malone MONO # 0.8 103/ul Normal 0.3-0.8 [facility] Comment on above: Performed By: #### C BC ####[facility] Blebqfuvmb9243 [place] [address]Dr. Rubyyvan Malone Monocytes/100 WBC (Bld) 8.7 % Normal 1.7-12.0 [facility] Comment on above: Performed By: #### C BC ####[facility] Gkxobrdmam[address] [place], [place] [address]Dr. Rubyyvan Malone NEUT # 6.9 103/ul Critically high 1.4-6.5 [facility] Comment on above: Performed By: #### C BC ####[facility] Dlnmmtqpoq[address] [place], [place] [address]Dr. Donna Malone Neutrophils/100 WBC (Bld) 74.4 % Normal 43.0-75.0 [facility] Comment on above: Performed By: #### C BC ####[facility] Tunmauisbk[address] [place], [place] [address]Dr. Donna Malone Platelet mean volume (Bld) [Entitic vol] 11.9 fL Normal 9.5-13.5 [facility] Comment on above: Performed By: #### C BC ####[facility] Zdcepvzuzw9095 [place] [id number]. Donna Malone PLT 174 103/ul Normal 150-450 [facility] Comment on above: Performed By: #### C BC ####[facility] Winzrkvvzq3663 [place] [phone]. Donna Malone RBC 4.53 106/ul Critically low 4.70-6.10 [facility] Comment on above: Performed By: #### C BC ####[facility] Vittfgewon[address] [place] [phone]. Donna Malone WBC 9.2 103/ul Normal 4.0-11.0 [facility] Comment on above: Performed By: #### C BC ####[facility] Wubgkwmlxr3362 [place] [address]Dr. Donna Malone PROF 14(COMP METB)on 022 Albumin [Mass/Vol] 3.0 g/dL Critically low 3.4-5.0 [facility] Comment on above: Performed By: #### C MP ####[facility] Ommcqxntsc0765 [place] [id number]. Donna Faisal Albumin/Globulin [Mass ratio] 0.8 {ratio} Normal [facility] Comment on above: Performed By: #### C MP ####[facility] Bjqyebkglm7286 [place] [address]Dr. Donna Malone ALP [Catalytic activity/Vol] 39 U/L Critically low 46-116 [facility] Comment on above: Performed By: #### C MP ####[facility] Mdqbdlzods7737 [place] [address]Dr. Donna Malone ALT [Catalytic activity/Vol] 16 U/L Normal 16-63 [facility] Comment on above: Performed By: #### C MP ####[facility] Vnmyqjwjco9627 [place] [address]Dr. Donna Malone Anion gap [Moles/Vol] 10.8 mmol/L Normal [facility] Comment on above: Performed By: #### C MP ####[facility] Hxxzbgtxrx5685 [place] [id number]. Donna Malone AST [Catalytic activity/Vol] 9 U/L Critically low 15-37 [facility] Comment on above: Performed By: #### C MP ####[facility] Bxwhdfrmji7192 [place] [phone]. Donna Malone Bilirubin [Mass/Vol] 0.3 mg/dL Normal 0.2-1.0 [facility] Comment on above: Performed By: #### C MP ####[facility] Ysursyzopn0222 [place] [phone]. Donna Malone Calcium [Mass/Vol] 8.8 mg/dL Normal 8.5-10.1 [facility] Comment on above: Performed By: #### C MP ####[facility] Xtkridpvjk5016 [place] [address]Dr. Donna Malone Chloride [Moles/Vol] 105 mmol/L Normal 98-107 [facility] Comment on above: Performed By: #### C MP ####[facility] Cfgubscnrg6296 [place] [phone]. Donna Malone CO2 [Moles/Vol] 26.7 mmol/L Normal 21.0-32.0 [facility] Comment on above: Performed By: #### C MP ####[facility] Vjaxselbwu5529 [place] [address]Dr. Donna Malone Creatinine [Mass/Vol] 0.97 mg/dL Normal 0.70-1.30 [facility] Comment on above: Performed By: #### C MP ####[facility] Xxksqaeaad3923 [place] [phone]. Donna Malone EGFR-AF ZAMBIAN >60 Normal >=60 [facility] Comment on above: Performed By: #### C MP ####[facility] Tycpnymdds4557 [place] [phone]. Donna Malone EGFR-NON AF ZAMBIAN >60 Normal >=60 [facility] Comment on above: Performed By: #### C MP ####[facility] Ulisobwyft10[address] [place], [place] [address]Dr. Donna Malone Globulin (S) [Mass/Vol] 3.7 g/dL Normal [facility] Comment on above: Performed By: #### C MP ####[facility] Prpeuorkav1450 [place] [address]Dr. Donna Malone Glucose [Mass/Vol] 98 mg/dL Normal 74-106 [facility] Comment on above: Performed By: #### C MP ####[facility] Gqkbfrcbpc6651 [place] [address]Dr. Donna Malone Potassium [Moles/Vol] 3.5 mmol/L Normal 3.5-5.1 [facility] Comment on above: Performed By: #### C MP ####[facility] Laqiitjzrv4990 [place] [address]Dr. Donna Malone Protein [Mass/Vol] 6.7 g/dL Normal 6.4-8.2 [facility] Comment on above: Performed By: #### C MP ####[facility] Iymjehtmag10[address] [place], [place] [address]Dr. Donna Malone Sodium [Moles/Vol] 139 mmol/L Normal 136-145 [facility] Comment on above: Performed By: #### C MP ####[facility] Ficecrkjzm1177[address] [place], [place] [address]Dr. Donna Malone Urea nitrogen [Mass/Vol] 11.0 mg/dL Normal 7.0-18.0 [facility] Comment on above: Performed By: #### C MP ####[facility] Rvagqkhpit7[address] [place], [place] [address]Dr. Donna Faisal Urea nitrogen/Creatinine [Mass ratio] 11.3 mg/mg Normal [facility] Comment on above: Performed By: #### C MP ####[facility] Mnmyuykoes9[address] [place], [place] [address]Dr. Donna Faisal T3, TOTAL (TRIIODOTHYRONINE) on 05-16-2022 T3, TOTAL 86 ng/dL Normal 71-180 [facility] Comment on above: Performed By: #### T 3TOTAL ####[facility] Ahleiithex[address] [place], [place] [address]Dr. Donna Faisal T4 LABCORPon 05-16-2022 T4 [Mass/Vol] 6.4 ug/dL Normal 4.5-12.0 [facility] Comment on above: Performed By: #### T 4LC ####[facility] Yflzecrwml11[address] [place], [place] [address]Dr. Donna Malone CBC AUTO DIFFon 05-15-2022 BASO # 0.0 103/ul Normal 0.0-0.1 [facility] Comment on above: Performed By: #### C BC ####[facility] Hdymtygctx024[address] [place], [place] [address]Dr. Rubyyvan Malone Basophils/100 WBC (Bld) 0.3 % Normal 0.2-2.0 [facility] Comment on above: Performed By: #### C BC ####[facility] Bhnqkukscp16[address] [place], [place] [address]Dr. Donna Malone EO # 0.2 103/ul Normal 0.0-0.7 [facility] Comment on above: Performed By: #### C BC ####[facility] Ycaewssmps[address] [place], [place] [address]Dr. Rubyyvan Malone Eosinophils/100 WBC (Bld) 2.0 % Normal 0.9-7.0 [facility] Comment on above: Performed By: #### C BC ####[facility] Pepowkouqu8[address] [place], [place] [address]Dr. Donna Malone Erythrocyte distribution width (RBC) [Ratio] 14.6 % Normal 11.0-15.0 [facility] Comment on above: Performed By: #### C BC ####[facility] Hlcleyigeg[address] [place], [place] [address]Dr. Donna Malone Hematocrit (Bld) [Volume fraction] 38.2 % Critically low 42.0-54.0 [facility] Comment on above: Performed By: #### C BC ####[facility] Lwmuixuzba0[address] [place], [place] [address]Dr. Donna Malone Hemoglobin (Bld) [Mass/Vol] 12.7 g/dL Critically low 14.0-18.0 [facility] Comment on above: Performed By: #### C BC ####[facility] Dvunkouscj7003 [place] [address]Dr. Donna Malone IG # 0.04 10e3/ul Critically high 0.00-0.03 [facility] Comment on above: Performed By: #### C BC ####[facility] Gnrxmwvmkn9711 [place] [address]Dr. Donna Malone IG % 0.4 % Normal 0.0-0.5 [facility] Comment on above: Performed By: #### C BC ####[facility] Sfdgigiand74[address] [place], [place] [address]Dr. Donna Malone LYMPH # 1.4 103/ul Normal 1.2-3.8 [facility] Comment on above: Performed By: #### C BC ####[facility] Nlmyzbwkko5227 [place] [address]Dr. Donna Malone Lymphocytes/100 WBC (Bld) 14.9 % Critically low 20.5-60.0 [facility] Comment on above: Performed By: #### C BC ####[facility] Etuyrkepva5569 [place] [address]Dr. Donna Malone MANUAL DIFF REQ NO Normal [facility] Comment on above: Performed By: #### C BC ####[facility] Eisoygftsk0195 [place] [address]Dr. Donna Malone MCH (RBC) [Entitic mass] 30.0 pg Normal 25.9-34.0 [facility] Comment on above: Performed By: #### C BC ####[facility] Aefwkdjmvi0188 [place] [address]Dr. Donna Malone MCHC (RBC) [Mass/Vol] 33.2 g/dL Normal 29.9-35.2 [facility] Comment on above: Performed By: #### C BC ####[facility] Imeifwnatf1659 [place] [address]Dr. Donna Malone MCV (RBC) [Entitic vol] 90.3 fL Normal 80.0-94.0 [facility] Comment on above: Performed By: #### C BC ####[facility] Hniebjgoew0996 [place] [id number]. Donna Malone MONO # 0.8 103/ul Normal 0.3-0.8 [facility] Comment on above: Performed By: #### C BC ####[facility] Kdwfnclzdb1291 [place] [id number]. Donna Malone Monocytes/100 WBC (Bld) 8.5 % Normal 1.7-12.0 [facility] Comment on above: Performed By: #### C BC ####[facility] Mubzsxbhtq5413 [place] [id number]. Donna Malone NEUT # 6.8 103/ul Critically high 1.4-6.5 [facility] Comment on above: Performed By: #### C BC ####[facility] Amjanenyyn1773 [place] [address]Dr. Donna Malone Neutrophils/100 WBC (Bld) 73.9 % Normal 43.0-75.0 [facility] Comment on above: Performed By: #### C BC ####[facility] Lrtelfjpey6744 [place] [address]Dr. Donna Malone Platelet mean volume (Bld) [Entitic vol] 12.0 fL Normal 9.5-13.5 [facility] Comment on above: Performed By: #### C BC ####[facility] Btrgmuxstj8931 [place] [address]Dr. Donna Malone PLT 154 103/ul Normal 150-450 [facility] Comment on above: Performed By: #### C BC ####[facility] Osexthhfbl5126 [place] [id number]. oDnna Malone RBC 4.23 106/ul Critically low 4.70-6.10 [facility] Comment on above: Performed By: #### C BC ####[facility] Usasihikmd9117 [place] [id number]. Donna Malone WBC 9.2 103/ul Normal 4.0-11.0 [facility] Comment on above: Performed By: #### C BC ####[facility] Ybmsscikog6674 [place] [address]Dr. Donna Malone PROF 14(COMP METB)on 022 Albumin [Mass/Vol] 2.9 g/dL Critically low 3.4-5.0 [facility] Comment on above: Performed By: #### C MP ####[facility] Bvmqzqpvsf3245 [place] [address]Dr. Donna Malone Albumin/Globulin [Mass ratio] 0.9 {ratio} Normal [facility] Comment on above: Performed By: #### C MP ####[facility] Ivdljxpzuk9[address] [place], [place] [address]Dr. Donna Malone ALP [Catalytic activity/Vol] 41 U/L Critically low 46-116 [facility] Comment on above: Performed By: #### C MP ####[facility] Zaibbilqda9646[address] [place], [place] [address]Dr. Donna Malone ALT [Catalytic activity/Vol] 12 U/L Critically low 16-63 [facility] Comment on above: Performed By: #### C MP ####[facility] Wzzyyxgkik12[address] [place], [place] [address]Dr. Donna Malone Anion gap [Moles/Vol] 5.6 mmol/L Normal [facility] Comment on above: Performed By: #### C MP ####[facility] Dwdyzloybp0[address] [place], [place] [address]Dr. Donna Malone AST [Catalytic activity/Vol] 8 U/L Critically low 15-37 [facility] Comment on above: Performed By: #### C MP ####[facility] Yxpztgncyk9108[address] [place], [place] [address]Dr. Donna Malone Bilirubin [Mass/Vol] 0.5 mg/dL Normal 0.2-1.0 [facility] Comment on above: Performed By: #### C MP ####[facility] Zooadhgigm[address] [place], [place] [address]Dr. Donna Malone Calcium [Mass/Vol] 8.3 mg/dL Critically low 8.5-10.1 [facility] Comment on above: Performed By: #### C MP ####[facility] Nkcbgwwzuh7448 [place] [address]Dr. Donna Malone Chloride [Moles/Vol] 106 mmol/L Normal 98-107 [facility] Comment on above: Performed By: #### C MP ####[facility] Dxvbvsccct1086 [place] [address]Dr. Donna Malone CO2 [Moles/Vol] 23.1 mmol/L Normal 21.0-32.0 [facility] Comment on above: Performed By: #### C MP ####[facility] Zmcjbkjcid9626 [place] [address]Dr. Donna Malone Creatinine [Mass/Vol] 0.82 mg/dL Normal 0.70-1.30 [facility] Comment on above: Performed By: #### C MP ####[facility] Lstsbbwgzm45[address] [place], [place] [address]Dr. Donna Malone EGFR-AF ZAMBIAN >60 Normal >=60 [facility] Comment on above: Performed By: #### C MP ####[facility] Hzkydcceaq7984[address] [place], [place] [address]Dr. Donna Malone EGFR-NON AF ZAMBIAN >60 Normal >=60 [facility] Comment on above: Performed By: #### C MP ####[facility] Wdkusknpif298[address] [place], [place] [address]Dr. Donna Malone Globulin (S) [Mass/Vol] 3.2 g/dL Normal [facility] Comment on above: Performed By: #### C MP ####[facility] Wmgebwqqmt806[address] [place], [place] [address]Dr. Donna Malone Glucose [Mass/Vol] 81 mg/dL Normal 74-106 [facility] Comment on above: Performed By: #### C MP ####[facility] Bhnqcsfdec68[address] [place], [place] [address]Dr. Donna Malone Potassium [Moles/Vol] 3.7 mmol/L Normal 3.5-5.1 [facility] Comment on above: Performed By: #### C MP ####[facility] Ynpvammoss2039[address] [place], [place] [address]Dr. Donna Malone Protein [Mass/Vol] 6.1 g/dL Critically low 6.4-8.2 [facility] Comment on above: Performed By: #### C MP ####[facility] Rsemkmkfjo772[address] [place], [place] [address]Dr. Donna Malone Sodium [Moles/Vol] 131 mmol/L Critically low 136-145 [facility] Comment on above: Performed By: #### C MP ####[facility] Jbzggfbque1413[address] [place], [place] [address]Dr. Donna Malone Urea nitrogen [Mass/Vol] 17.0 mg/dL Normal 7.0-18.0 [facility] Comment on above: Performed By: #### C MP ####[facility] Ruhgrrfxka70[address] [place], [place] [address]Dr. Donna Malone Urea nitrogen/Creatinine [Mass ratio] 20.7 mg/mg Normal [facility] Comment on above: Performed By: #### C MP ####[facility] Vwvlootkbg6[address] [place], [place] [address]Dr. Donna Malone CBC AUTO DIFFon 05-14-2022 BASO # 0.1 103/ul Normal 0.0-0.1 [facility] Comment on above: Performed By: #### C BC ####[facility] Lukacfqbly[address] [place], [place] [address]Dr. Donna Malone Basophils/100 WBC (Bld) 0.8 % Normal 0.2-2.0 [facility] Comment on above: Performed By: #### C BC ####[facility] Cxlfrnkuen5[address] [place], [place] [address]Dr. Donna Malone EO # 0.3 103/ul Normal 0.0-0.7 [facility] Comment on above: Performed By: #### C BC ####[facility] Lkgaogfnyk[address] [place], [place] [address]Dr. Donna Malone Eosinophils/100 WBC (Bld) 4.2 % Normal 0.9-7.0 [facility] Comment on above: Performed By: #### C BC ####[facility] Xjhrfdhbge0042 [place] [address]Dr. Donna Malone Erythrocyte distribution width (RBC) [Ratio] 14.7 % Normal 11.0-15.0 [facility] Comment on above: Performed By: #### C BC ####[facility] Pqcrbehhoe4795 [place] [address]Dr. Donna Malone Hematocrit (Bld) [Volume fraction] 36.5 % Critically low 42.0-54.0 [facility] Comment on above: Performed By: #### C BC ####[facility] Dgaqgutmrj9[address] [place], [place] [address]Dr. Donna Malone Hemoglobin (Bld) [Mass/Vol] 11.9 g/dL Critically low 14.0-18.0 [facility] Comment on above: Performed By: #### C BC ####[facility] Ksotpqxlyl8[address] [place], [place] [address]Dr. Donna Malone IG # 0.01 10e3/ul Normal 0.00-0.03 [facility] Comment on above: Performed By: #### C BC ####[facility] Agqipilgmk3813[address] [place], [place] [address]Dr. Donna Malone IG % 0.2 % Normal 0.0-0.5 [facility] Comment on above: Performed By: #### C BC ####[facility] Kygukgnunm224[address] [place], [place] [address]Dr. Donna aMlone LYMPH # 2.1 103/ul Normal 1.2-3.8 [facility] Comment on above: Performed By: #### C BC ####[facility] Ayeptygvdp7345[address] [place], [place] [address]Dr. Donna Malone Lymphocytes/100 WBC (Bld) 32.1 % Normal 20.5-60.0 [facility] Comment on above: Performed By: #### C BC ####[facility] Uaoravaptq[address] [place], [place] [address]Dr. Donna Malone MANUAL DIFF REQ NO Normal [facility] Comment on above: Performed By: #### C BC ####[facility] Arlbfbrwwt9795 [place] [id number]. Donna Malone MCH (RBC) [Entitic mass] 29.7 pg Normal 25.9-34.0 [facility] Comment on above: Performed By: #### C BC ####[facility] Rxkxokqhvv7583 [place] [phone]. Donna Malone MCHC (RBC) [Mass/Vol] 32.6 g/dL Normal 29.9-35.2 [facility] Comment on above: Performed By: #### C BC ####[facility] Ypedgmjtpa0114 [place] [id number]. Donna Malone MCV (RBC) [Entitic vol] 91.0 fL Normal 80.0-94.0 [facility] Comment on above: Performed By: #### C BC ####[facility] Hejlfolixd8083[address] [place], [place] [address]Dr. Donna Faisal MONO # 0.5 103/ul Normal 0.3-0.8 [facility] Comment on above: Performed By: #### C BC ####[facility] Mwwncgpzfl0856 [place] [address]Dr. Donna Faisal Monocytes/100 WBC (Bld) 8.1 % Normal 1.7-12.0 [facility] Comment on above: Performed By: #### C BC ####[facility] Kabocbvzgt[address] [place], [place] [address]Dr. Donna Malone NEUT # 3.5 103/ul Normal 1.4-6.5 [facility] Comment on above: Performed By: #### C BC ####[facility] Bfcyjgfkkc65[address] [place], [place] [address]Dr. Donna Faisal Neutrophils/100 WBC (Bld) 54.6 % Normal 43.0-75.0 [facility] Comment on above: Performed By: #### C BC ####[facility] Lcyukqegnl[address] [place], [place] [address]Dr. Donna Malone Platelet mean volume (Bld) [Entitic vol] 12.0 fL Normal 9.5-13.5 [facility] Comment on above: Performed By: #### C BC ####[facility] Ipnceygrpp6036 [place] [id number]. Rubyyvan Faisal PLT 152 103/ul Normal 150-450 [facility] Comment on above: Performed By: #### C BC ####[facility] Qfzorvcdyw9992 [place] [id number]. Donna Malone RBC 4.01 106/ul Critically low 4.70-6.10 [facility] Comment on above: Performed By: #### C BC ####[facility] Lgqmpircny4687 [place] [id number]. Rubyyvan Faisal WBC 6.4 103/ul Normal 4.0-11.0 [facility] Comment on above: Performed By: #### C BC ####[facility] Uobmqcxyfy0076 [place] [address]Dr. Donna Malone DEPAKENE/VALPROICon 05-14-20 22 DEPAKENE 17.3 ug/ml Critically low 50.0-100.0 [facility] Comment on above: Performed By: #### V ALP ####[facility] Xslpvxzjbd2172 [place] [address]Dr. Donna Malone POINT OF CARE GLUCOSEon Glucose [Mass/Vol] 89 mg/dL Normal 74-106 [facility] Comment on above: Performed By: #### P OCGLUC ####[facility] Biblpwsinh[address] [place], [place] [address]DrElizabeth Malone PROF CHEM 8 (BAS METB)on Anion gap [Moles/Vol] 13.6 mmol/L Normal [facility] Comment on above: Performed By: #### B MP ####[facility] Vpivjxczrn[address] [place], [place] [address]DrElizabeth Malone Calcium [Mass/Vol] 7.8 mg/dL Critically low 8.5-10.1 [facility] Comment on above: Performed By: #### B MP ####[facility] Sislfmqkhu8[address] [place], [place] [address]DrElizabeth Malone Chloride [Moles/Vol] 112 mmol/L Critically high 98-107 [facility] Comment on above: Performed By: #### B MP ####[facility] Claifrgeic7543 [place] [address]Dr. Rubyyvan Faisal CO2 [Moles/Vol] 22.5 mmol/L Normal 21.0-32.0 [facility] Comment on above: Performed By: #### B MP ####[facility] Eceykixirm8[address] [place], [place] [address]Dr. Rubyyvan Faisal Creatinine [Mass/Vol] 1.01 mg/dL Normal 0.70-1.30 [facility] Comment on above: Performed By: #### B MP ####[facility] Qpdlkrzkxs5[address] [place], [place] [address]Dr. Donna Malone EGFR-AF ZAMBIAN >60 Normal >=60 [facility] Comment on above: Performed By: #### B MP ####[facility] Otshtqvive[address] [place] [address]Dr. Donna Malone EGFR-NON AF ZAMBIAN >60 Normal >=60 [facility] Comment on above: Performed By: #### B MP ####[facility] Rezxsgnw[address] [place], [place] [address]Dr. Donna Malone Glucose [Mass/Vol] 84 mg/dL Normal 74-106 [facility] Comment on above: Performed By: #### B MP ####[facility] Dyundjuoyl[address] [place], [place] [address]Dr. Donna Malone Potassium [Moles/Vol] 4.1 mmol/L Normal 3.5-5.1 [facility] Comment on above: Performed By: #### B MP ####[facility] Tvrzanciwt34[address] [place], [place] [address]Dr. Donna Malone Sodium [Moles/Vol] 144 mmol/L Normal 136-145 [facility] Comment on above: Performed By: #### B MP ####[facility] Qkttrxppwe[address] [place], [place] [address]Dr. Donna Malone Urea nitrogen [Mass/Vol] 21.0 mg/dL Critically high 7.0-18.0 [facility] Comment on above: Performed By: #### B MP ####[facility] [address]tw[address] [place] [address]Dr. Donna Malone Urea nitrogen/Creatinine [Mass ratio] 20.8 mg/mg Normal [facility] Comment on above: Performed By: #### B MP ####[facility] Fdvtkjodri27[address] [place] [address]Dr. Donna Malone TSHon 05-14-2022 TSH 1.086 uIU/mL Normal 0.358-3.74 0 [facility] Comment on above: Performed By: #### T SH ####[facility] Cjhzwziixg[address] [place], [place] [address]Dr. Donna Malone BLOOD GASES BTYon 05-13-2022 02 MODE ROOM AIR [facility] Comment on above: Performed By: #### A BG ####[facility] Bcajfpxsxo[address] [place], [place] [address]Dr. Donna Malone ALLENS TEST Positive [facility] Comment on above: Performed By: #### A BG ####[facility] Tguiisfrmh69[address] [place], [place] [address]Dr. Donna Malone Base excess Calc (Bld) [Moles/Vol] -2.5000 mmol/L Critically low -2.0-2.0 [facility] Comment on above: Performed By: #### A BG ####[facility] Afzthckyyy[address] [place], [place] [address]Dr. Donna Malone BIPAP PRESSURE Normal [facility] Comment on above: Performed By: #### A BG ####[facility] Mogmhuqesb[address] [place], [place] [address]Dr. Donna Malone CPAP [facility] Comment on above: Performed By: #### A BG ####[facility] Nysorajrbg2[address] [place], [place] [address]Dr. Donna Malone FIO2 Normal [facility] Comment on above: Performed By: #### A BG ####[facility] Zbadasvqxg55[address] [place], [place] [address]Dr. Donna Malone HCO3 (Bld) [Moles/Vol] 22.4 mmol/L Normal 22.0-26.0 T [facility] Comment on above: Performed By: #### A BG ####[facility] Lukkevbouq0636[address] [place], [place] [address]Dr. Donna Malone LPM [facility] Comment on above: Performed By: #### A BG ####[facility] Ttepkafber50[address] [place], [place] [address]Dr. Donna Malone MINUTE VOLUME Normal [facility] Comment on above: Performed By: #### A BG ####[facility] Hwvfoaeqqb49[address] [place], [place] [address]Dr. Donna Malone Oxygen (Bld) [Partial pressure] 77.6 mm[Hg] Critically low 80.0-100.0 [facility] Comment on above: Performed By: #### A BG ####[facility] Ejspmwqxrw7864[address] [place], [place] [address]Dr. Donna Malone Oxygen saturation in Blood 95.5 % Normal 95.0-100.0 [facility] Comment on above: Performed By: #### A BG ####[facility] Golgicftjc[address] [place], [place] [address]Dr. Donna Malone PCO2 40.8 mmHg Normal 35.0-45.0 [facility] Comment on above: Performed By: #### A BG ####[facility] Bzzashezgv9713[address] [place], [place] [address]Dr. Donna Malone PEEP [facility] Comment on above: Performed By: #### A BG ####[facility] Nrjrshvawd[address] [place], [place] [address]Dr. Donna Malone pH (Bld) 7.359 [pH] Normal 7.350-7.45 0 [facility] Comment on above: Performed By: #### A BG ####[facility] Kacnihcfuq[address] [place], [place] [address]Dr. Donna Malone PIP [facility] Comment on above: Performed By: #### A BG ####[facility] Mgpulokqkz15[address] [place], [place] [address]Dr. Donna Malone PS [facility] Comment on above: Performed By: #### A BG ####[facility] Jujitnqyld[address] [place] [address]Dr. Donna Malone PUNCTURE SITE RR Normal [facility] Comment on above: Performed By: #### A BG ####[facility] Vijbrnmnbg[address] [place] [address]Dr. Donna Malone RATE Normal [facility] Comment on above: Performed By: #### A BG ####[facility] Lnqrexqjdx1341 [place] [address]Dr. Donna Malone VENT MODE Normal [facility] Comment on above: Performed By: #### A BG ####[facility] Urwnopinje97[address] [place] [address]Dr. Donna Malone [place] [facility] Comment on above: Performed By: #### A BG ####[facility] Gbtovsqzir6098 [place] [address]Dr. Donna Malone BNPon 05-13-2022 Natriuretic peptide B (Bld) [Mass/Vol] 156.0 pg/mL Normal <=900.0 [facility] Comment on above: Performed By: #### C MP, CMADM, BNP ####[facility] Mnihocqhmx49[address] [place] [address]Dr. Donna Malone CARDIAC MJ ADMITon 022 CK [Catalytic activity/Vol] 119 U/L Normal 39-308 [facility] Comment on above: Performed By: #### C MP, CMADM, BNP ####[facility] Ussabgltqy0272 [place] [address]Dr. Donna Malone CK.MB [Mass/Vol] 1.27 ng/mL Normal <=3.60 [facility] Comment on above: Performed By: #### C MP, CMADM, BNP ####[facility] Fpqkdjkzyg97[address] [place], [place] [address]Dr. Donna Malone HSTROP 7.9 pg/mL Normal 4.0-76.1 [facility] Comment on above: Result Comment: CUT- OFF POINTS HAVE BEEN ESTABLISHED BASED ON THE FOURTH UNIVERSAL DEFINITIONS OF MYOCARDIALINFARCTION. THE UPPER REFERENCE LIMIT (URL) OF TROPONIN, DEFINED THE 99TH PERCENTILE OFcTnI DISTRIBUTION IN A REFERENCE POPULATION, HAS BEEN CONFIRMED THE DECISION THRESHOLDFOR AK DIAGNOSIS. Performed By: #### C MP, CMADM, BNP ####[facility] Iaglxkvqpu44[address] [place] [address]Dr. Donna Malone BINDU 111 ng/mL Critically high 16-96 [facility] Comment on above: Performed By: #### C MP, CMADM, BNP ####[facility] Jonnesdvga7394 [place] [address]Dr. Donna Malone CBC AUTO DIFFon 05-13-2022 BASO # 0.1 103/ul Normal 0.0-0.1 [facility] Comment on above: Performed By: #### C BC ####[facility] Pfsqwedxkn1162[address] [place], [place] [address]Dr. Donna Malone Basophils/100 WBC (Bld) 0.8 % Normal 0.2-2.0 [facility] Comment on above: Performed By: #### C BC ####[facility] Bnhtezgmqz475[address] [place], [place] [address]Dr. Donna Malone EO # 0.1 103/ul Normal 0.0-0.7 [facility] Comment on above: Performed By: #### C BC ####[facility] Pwcjqrwunz7775[address] [place], [place] [address]Dr. Donna Malone Eosinophils/100 WBC (Bld) 1.8 % Normal 0.9-7.0 [facility] Comment on above: Performed By: #### C BC ####[facility] Nkyszgnykw[address] [place], [place] [address]Dr. Rubyyvan Malone Erythrocyte distribution width (RBC) [Ratio] 14.7 % Normal 11.0-15.0 [facility] Comment on above: Performed By: #### C BC ####[facility] Eukkxlzgpl5[address] [place], [place] [address]Dr. Donna Malone Hematocrit (Bld) [Volume fraction] 38.2 % Critically low 42.0-54.0 [facility] Comment on above: Performed By: #### C BC ####[facility] Yaapvhajuc[address] [place] [id number]. Donna Malone Hemoglobin (Bld) [Mass/Vol] 12.7 g/dL Critically low 14.0-18.0 [facility] Comment on above: Performed By: #### C BC ####[facility] Misiitmmal[address] [place] [address]Dr. Donna Malone IG # 0.03 10e3/ul Normal 0.00-0.03 [facility] Comment on above: Performed By: #### C BC ####[facility] Ofordmmuqf[address] [place] [address]Dr. Donna Malone IG % 0.4 % Normal 0.0-0.5 [facility] Comment on above: Performed By: #### C BC ####[facility] Bwiiqwqgss[address] [place], [place] [address]Dr. Donna Malone LYMPH # 1.6 103/ul Normal 1.2-3.8 [facility] Comment on above: Performed By: #### C BC ####[facility] Wvuesgknlt[address] [place], [place] [address]Dr. Donna Malone Lymphocytes/100 WBC (Bld) 22.8 % Normal 20.5-60.0 [facility] Comment on above: Performed By: #### C BC ####[facility] Yegyjikxzs65[address] [place], [place] [address]Dr. Donna Malone MANUAL DIFF REQ NO Normal [facility] Comment on above: Performed By: #### C BC ####[facility] Ksnusreifk92[address] [place], [place] [address]Dr. Donna Malone MCH (RBC) [Entitic mass] 30.2 pg Normal 25.9-34.0 [facility] Comment on above: Performed By: #### C BC ####[facility] Bfypteiywo[address] [place], [place] [address]Dr. Donna Malone MCHC (RBC) [Mass/Vol] 33.2 g/dL Normal 29.9-35.2 [facility] Comment on above: Performed By: #### C BC ####[facility] Pbtezssnln51[address] [place] [id number]. Donna Malone MCV (RBC) [Entitic vol] 91.0 fL Normal 80.0-94.0 [facility] Comment on above: Performed By: #### C BC ####[facility] Cxlrgjfgac2[address] [place] [address]Dr. Donna Malone MONO # 0.7 103/ul Normal 0.3-0.8 [facility] Comment on above: Performed By: #### C BC ####[facility] Ycmomjbpvz7638 [place] [id number]. Donna Malone Monocytes/100 WBC (Bld) 9.1 % Normal 1.7-12.0 [facility] Comment on above: Performed By: #### C BC ####[facility] Gshfabgpuf0358 [place] [id number]. Donna Malone NEUT # 4.7 103/ul Normal 1.4-6.5 [facility] Comment on above: Performed By: #### C BC ####[facility] Kxhlfcfdha0556 [place] [id number]. Donna Malone Neutrophils/100 WBC (Bld) 65.1 % Normal 43.0-75.0 [facility] Comment on above: Performed By: #### C BC ####[facility] Gjnvqjcysr3232 [place] [id number]. Donna Malone Platelet mean volume (Bld) [Entitic vol] 11.8 fL Normal 9.5-13.5 [facility] Comment on above: Performed By: #### C BC ####[facility] Pxuqjausrf4287 [place] [id number]. Donna Malone PLT 179 103/ul Normal 150-450 [facility] Comment on above: Performed By: #### C BC ####[facility] Eumxbcyejj4524 [place] [id number]. Donna Malone RBC 4.20 106/ul Critically low 4.70-6.10 [facility] Comment on above: Performed By: #### C BC ####[facility] Nqndsfwvhg1212 [place], [place] [address]Uj. Donna Malone WBC 7.2 103/ul Normal 4.0-11.0 [facility] Comment on above: Performed By: #### C BC ####[facility] Ptlicesfhg1334 [place], [place] [address]Ii. Donna Malone CT STROKE HEAD WOon 05-13-[address] STROKE HEAD WO Normal [facility] Covid-19 PCR (CVDTB)on SARS-CoV-2 (COVID-19) RNA JOSÉ MIGUEL+probe Ql (Unsp spec) Not detected Normal NOT DETECTED [facility] Comment on above: Result Comment: When [...] for this test is supported by the [employer] and Human Service's declaration that [...] be used). Performed By: #### C VDTBH ####[facility] Lrvmqcyupn1699 [place], [place] [address]Eh. Donna Malone DEPAKENE/VALPROICon 05-13-20 22 DEPAKENE 16.9 ug/ml Critically low 50.0-100.0 [facility] Comment on above: Performed By: #### V ALP ####[facility] Yqdkzemorw1429 [place], [place] [address]Zg. Donna Malone DRUG SCREEN RAPID (URINE)on 05-13-2022 AMP Negative Normal NEGATIVE [facility] Comment on above: Performed By: #### D RUGRPD ####[facility] Rvglmrekny2070 [place] [id number]. Donna Malone BAR Negative Normal NEGATIVE [facility] Comment on above: Performed By: #### D RUGRPD ####[facility] Noazhqblxk3153 [place] [id number]. Donna Malone BUP Negative Normal NEGATIVE [facility] Comment on above: Performed By: #### D RUGRPD ####[facility] Vjldbptarx7041 [place] [id number]. Donna Malone BZO Positive Abnormal NEGATIVE [facility] Comment on above: Performed By: #### D RUGRPD ####[facility] Ardrbepvxs[address] [place], [place] [address]Dr. Donna Malone EVONNE Positive Abnormal NEGATIVE [facility] Comment on above: Performed By: #### D RUGRPD ####[facility] Aawdqvzthe[address] [place], [place] [address]Dr. Donna Malone CUT-OFFS SEE BELOW Normal [facility] Comment on above: Result Comment: AMP (Amphetamine): 500ng/mL, BAR (Barbituates): 200 ng/mL, BZO (Benzodiazepines): 150 ng/mL, BUP (Buprenorphine): 10 ng/mL, EVONNE (Cocaine): 150 ng/mL, mAMP (Methamphetamine): 500 ng/mL, MTD (Methadone): 200 ng/mL, OPI (Opiates): 100 ng/mL, OXY (Oxycodone): 100 ng/mL, PCP (Phencyclidine): 25 ng/mL, PPX (Propoxyphene): 300 ng/mL, THC (Cannabinoids): 50 ng/mL, TCA (Trycyclic Antidepressants): 300 ng/mL Performed By: #### D RUGRPD ####[facility] [address]qb[address] [place], [place] [address]Dr. Donna Malone DRUG CUT HEADER DRUG CLASS TEST SYST EM CUT-OFF CONCENTRATIONS ARE FOLLOWS: Normal [facility] Comment on above: Performed By: #### D RUGRPD ####[facility] Dmxqwnplue[address] [place], [place] [address]Dr. Donna Malone mAMP Negative Normal NEGATIVE [facility] Comment on above: Performed By: #### D RUGRPD ####[facility] Btrpzgngxu4058 [place] [address]Dr. Donna Malone MTD Negative Normal NEGATIVE [facility] Comment on above: Performed By: #### D RUGRPD ####[facility] Zylahjepbw[address] [place] [address]Dr. Donna Malone OPI Positive Abnormal NEGATIVE [facility] Comment on above: Performed By: #### D RUGRPD ####[facility] Ndkyvtgmso8111 [place] [address]Dr. Rubylan Malone OXY Negative Normal NEGATIVE [facility] Comment on above: Performed By: #### D RUGRPD ####[facility] Ccnlhswhar[address] [place], [place] [address]Dr. Donna Malone PCP Negative Normal NEGATIVE [facility] Comment on above: Performed By: #### D RUGRPD ####[facility] Powjzyphvw29[address] [place], [place] [address]Dr. Donna Malone PPX Negative Normal NEGATIVE [facility] Comment on above: Performed By: #### D RUGRPD ####[facility] Akzmor[address]td[address] [place], [place] [address]Dr. Donna Malone TCA Positive Abnormal NEGATIVE [facility] Comment on above: Performed By: #### D RUGRPD ####[facility] Yhcxctxzzh30[address] [place], [place] [address]Dr. Donna Malone THC Negative Normal NEGATIVE [facility] Comment on above: Performed By: #### D RUGRPD ####[facility] [address]fthqwitqw[address] [place], [place] [address]Dr. Donna Malone ER URINE PROFILEon 2 Bilirubin Ql (U) MODERATE Abnormal NEGATIVE [facility] Comment on above: Performed By: #### E RUR ####[facility] Uxukksbkix[address] [place], [place] [address]Dr. Donna Malone Clarity (U) SL CLOUDY Abnormal CLEAR [facility] Comment on above: Performed By: #### E RUR ####[facility] Ivlixzmkxc69[address] [place], [place] [address]Dr. Donna Malone Color (U) DK. YELLOW Normal YELLOW [facility] Comment on above: Performed By: #### E RUR ####[facility] Xpiuvxqupt7[address] [place], [place] [address]Dr. Donna Malone ERUAHD A micrscopic examina tion will be performed if indicated. Normal [facility] Comment on above: Performed By: #### E RUR ####[facility] Wekflwvmut[address] [place], [place] [address]Dr. Donna Malone Glucose Ql (U) 250 mg/dl Abnormal NEGATIVE [facility] Comment on above: Performed By: #### E RUR ####[facility] Ncmzjoshtq6[address] [place], [place] [address]Dr. Donna Malone Hemoglobin Ql (U) Negative Normal NEGATIVE [facility] Comment on above: Performed By: #### E RUR ####[facility] Hiwqsgvdeo50[address] [place], [place] [address]Dr. Donna Malone Ketones Ql (U) TRACE Abnormal NEGATIVE [facility] Comment on above: Performed By: #### E RUR ####[facility] Lvgutfpcqc3452[address] [place], [place] [address]Dr. Donna Malone LEUKOCYTES Negative Normal NEGATIVE [facility] Comment on above: Performed By: #### E RUR ####[facility] Vahjawirvw[address] [place], [place] [address]Dr. Donna Malone Nitrite Ql (U) Negative Normal NEGATIVE [facility] Comment on above: Performed By: #### E RUR ####[facility] Kftbpgydth99[address] [place], [place] [address]Dr. Donna Malone pH (U) 5.5 [pH] Normal 5-9 [facility] Comment on above: Performed By: #### E RUR ####[facility] Uwpfeiymln[address] [place], [place] [address]Dr. Donna Malone SPEC GRAVITY >=1.030 Abnormal 1.005-<=1. 025 [facility] Comment on above: Performed By: #### E RUR ####[facility] Rkmwmwycvn[address] [place], [place] [address]Dr. Donna Malone UA PROTEIN TRACE Normal NEGATIVE/ TRACE [facility] Comment on above: Performed By: #### E RUR ####[facility] Mrcoshdcna1434[address] [place], [place] [address]Dr. Donna Malone UR MICRO IND NOT INDICATED Normal [facility] Comment on above: Performed By: #### E RUR ####[facility] Speezifqio[address] [place], [place] [address]Dr. Donna Malone Urobilinogen Qn (U) 1.0 {Jermain'U}/dL Normal 0.2 - 1. 0 [facility] Comment on above: Performed By: #### E RUR ####[facility] Asshlqkamn[address] [place], [place] [address]Dr. Donna Malone ETHANOL (BLD ALC)on 05-13-20 22 ALC NOTE NOTE: 80 mg/dl is th legal limit for a blood alcohol level Normal [facility] Comment on above: Performed By: #### E TH ####[facility] Kceskgolja[address] [place], [place] [address]Dr. Donna Malone Ethanol [Mass/Vol] mg/dL Normal [facility] Comment on above: Performed By: #### E TH ####[facility] [address]we[address] [place] [address]. Donna Malone LACTATE/LACTIC ACIDon 2021 Lactate [Moles/Vol] 1.7 mmol/L Normal 0.4-1.9 [facility] Comment on above: Performed By: #### L ACT ####[facility] Jggczjnsvq[address] [place], [place] [address]Dr. Donna Malone POINT OF CARE GLUCOSEon Glucose [Mass/Vol] 99 mg/dL Normal 74-106 [facility] Comment on above: Performed By: #### P OCGLUC ####[facility] Pziawzumdl[address] [place], [place] [address]Dr. Rubyyvan Malone PROF 14(COMP METB)on 022 Albumin [Mass/Vol] 3.1 g/dL Critically low 3.4-5.0 [facility] [place] [facility] Comment on above: Performed By: #### C MP, CMADM, BNP ####[facility] Ausikbscyd[address] [place] [address]Dr. Donna Faisal Albumin/Globulin [Mass ratio] 1.0 {ratio} Normal [facility] Comment on above: Performed By: #### C MP, CMADM, BNP ####[facility] Yzabsjfljy13[address] [place] [address]Dr. Donna Faisal ALP [Catalytic activity/Vol] 37 U/L Critically low 46-116 [facility] Comment on above: Performed By: #### C MP, CMADM, BNP ####[facility] Ntrptyptas2890 [place] [address]Dr. Donna Malone ALT [Catalytic activity/Vol] 14 U/L Critically low 16-63 [facility] Comment on above: Performed By: #### C MP, CMADM, BNP ####[facility] Gmqfkthqkc17[address] [place], [place] [address]Dr. Donna Malone Anion gap [Moles/Vol] 12.3 mmol/L Normal [facility] Comment on above: Performed By: #### C MP, CMADM, BNP ####[facility] Bpzertzwoe[address] [place], [place] [address]Dr. Rubyyvan Malone AST [Catalytic activity/Vol] 12 U/L Critically low 15-37 [facility] Comment on above: Performed By: #### C MP, CMADM, BNP ####[facility] Rgeatmdsng7924 [place] [address]Dr. Donna Malone Bilirubin [Mass/Vol] 0.4 mg/dL Normal 0.2-1.0 [facility] Comment on above: Performed By: #### C MP, CMADM, BNP ####[facility] [address]ymnqzwlod[address] [place], [place] [address]Dr. Donna Malone Calcium [Mass/Vol] 7.8 mg/dL Critically low 8.5-10.1 [facility] Comment on above: Performed By: #### C MP, CMADM, BNP ####[facility] Yquzpwzshg[address] [place], [place] [address]Dr. Donna Malone Chloride [Moles/Vol] 108 mmol/L Critically high 98-107 [facility] Comment on above: Performed By: #### C MP, CMADM, BNP ####[facility] Axtnzxekyc9[address] [place] [address]Dr. Donna Malone CO2 [Moles/Vol] 24.8 mmol/L Normal 21.0-32.0 [facility] Comment on above: Performed By: #### C MP, CMADM, BNP ####[facility] Bojskdrsww8699 [place] [address]Dr. Donna Malone Creatinine [Mass/Vol] 1.83 mg/dL Critically high 0.70-1.30 [facility] Comment on above: Performed By: #### C MP, CMADM, BNP ####[facility] Emvyfvwecs[address] [place], [place] [address]Dr. Donna Malone EGFR-AF ZAMBIAN 45 mL/min/1.73m2 Critically low >=60 [facility] Comment on above: Performed By: #### C MP, CMADM, BNP ####[facility] Poqdziwtlk[address] [place], [place] [address]Dr. Donna Malone EGFR-NON AF ZAMBIAN 37 mL/min/1.73m2 Critically low >=60 [facility] Comment on above: Performed By: #### C MP, CMADM, BNP ####[facility] Cogdmhwnvu65[address] [place], [place] [address]Dr. Donna Malone Globulin (S) [Mass/Vol] 3.2 g/dL Normal [facility] Comment on above: Performed By: #### C MP, CMADM, BNP ####[facility] Aefhfhwigj7522 [place] [address]Dr. Donna Malone Glucose [Mass/Vol] 202 mg/dL Critically high 74-106 [facility] Comment on above: Performed By: #### C MP, CMADM, BNP ####[facility] Npslshejif[address] [place], [place] [address]Dr. Donna Malone Potassium [Moles/Vol] 4.1 mmol/L Normal 3.5-5.1 [facility] Comment on above: Performed By: #### C MP, CMADM, BNP ####[facility] Incxzeiydp6[address] [place] [address]Dr. Donna Malone Protein [Mass/Vol] 6.3 g/dL Critically low 6.4-8.2 Th e [facility] Comment on above: Performed By: #### C MP, CMADM, BNP ####[facility] [id number] [place] [address]Dr. Donna Malone Sodium [Moles/Vol] 141 mmol/L Normal 136-145 [facility] Comment on above: Performed By: #### C MP, CMADM, BNP ####[facility] [id number] [place] [address]Dr. Donna Malone Urea nitrogen [Mass/Vol] 32.0 mg/dL Critically high 7.0-18.0 [facility] Comment on above: Performed By: #### C MP, CMADM, BNP ####[facility] [id number] [place], [place] [address]Dr. Donna Malone Urea nitrogen/Creatinine [Mass ratio] 17.5 mg/mg Normal [facility] Comment on above: Performed By: #### C MP, CMADM, BNP ####[facility] [id number] [place], [place] [address]Dr. Donna Malone PROTIMEon 05-13-2022 INR Coag (PPP) [Relative time] 1.04 {INR} Normal [facility] Comment on above: Performed By: #### P T, PTT ####[facility] [id number] [place], [place] [address]Dr. Donna Malone INR GUIDELINES SEE BELOW Normal [facility] Comment on above: Result Comment: FLORESITA RED INR: 2.0 - 3.0 CONDITIONS NOT LISTED BELOW 2.5 - 3.5 FOR PROSTHETIC HEART VALVE REPLACEMENT 2.5 - 3.5 RECURRENT THROMBOSIS Performed By: #### P T, PTT ####[facility] [id number] [place], [place] [address]Dr. Donna Malone PT Coag (PPP) [Time] 11.2 s Normal 9.0-11.6 [facility] Comment on above: Performed By: #### P T, PTT ####[facility] [address] [place], [place] [address]Qq. Donna Malone PTTon 05-13-2022 aPTT Coag (Bld) [Time] 27.5 s Normal 22.3-36.2 Th e [facility] Comment on above: Performed By: #### P T, PTT ####[facility] [address] [place], [place] [address]Ir. Donna Malone XR CHEST 1 Von 05-13-2022 XR CHEST 1 V Normal [facility] Ambulatory Visit Summaryon 0 10-03-2021 Ambulatory [...] physician if questions or concerns acetaminophen acetaminophen-hydrocodone ([place] 5/325 Tab) amlodipine (amLODIPine 5 mg Tab) [...] [facility] [address], [place] [address]- Medications What How Much When Instructions New ciprofloxacin (Cipro 500 mg Tab) 1 Tablets By Mouth Every day Take 1 tablet the day before the procedure and 1 tablet after the procedure Pickup at [facility] Unchanged acetaminophen 650 Milligram Every 4 hours Contact prescribing physician if questions or concerns Unchanged acetaminophen-hydrocodone ([place] 5/ 325 Tab) 1 Tablets By Mouth [...] physician if questions or concerns Pharmacy Information [facility]: [address] [place] [id number] [phone] (more content not included)... Normal [facility] Ambulatory Visit Summary TAYLOR MCCLELLAN SR [...] physician if questions or concerns acetaminophen acetaminophen-hydrocodone ([place] 5/325 Tab) amlodipine (amLODIPine 5 mg Tab) [...] Cysto Where: [facility] [address], [place] [address]- Medications What How Much When Instructions New ciprofloxacin (Cipro 500 mg Tab) 1 Tablets By Mouth Every day Take 1 tablet the day before the procedure and 1 tablet after the procedure Pickup at [facility] Unchanged acetaminophen 650 Milligram Every 4 hours Contact prescribing physician if questions or concerns Unchanged acetaminophen-hydrocodone ([place] 5/ 325 Tab) 1 Tablets By Mouth [...] physician if questions or concerns Pharmacy Information [facility]: [address] [place], [place] [id number] [phone] (more content not included)... Normal [facility] Senior Care Recordson 10-03 Senior Care Records [id number] Normal [facility] Patient Educationon 10-03-19 Patient Education Urology [...] Follow these instructions at home: ? Take ymzv-vnp-lbxsvar and prescription medicines only as told by [...] You d (more content not included)... Normal [facility] Urology Office/Clinic Noteon 10-03-2021 Urology Office/Clinic Note Chief Complaint This is a 66 year old male in the [place] ER on 09/14/21. This patient has a [...] UroLift 10/30/18. Pt. was seen in the [facility] ER on 09/14/21 due to generalized [...] recently. Family was in the hospital at [place] where he had severe weakness. A Galindo [...] last seen in 2019. Patient was in [facility] 09/14/21 due to weakness and acute [...] dribbling) moderate, (more content not included)... Normal [facility] Comment on above: Result Comment: Elec tronically Signed By: Sharad Grossman MD, Lisandro Espinal\.br\Date and Time Signed: 10/03/21 12:37 EST\.br\Electronically Co-Signed By: Lisandra Arias\.br\Date and Time Co-Signed: 10/03/21 12:32 EST APTTon 10-13-2019 aPTT Coag (Bld) [Time] 34.9 s Normal 25.0-35.0 Th e [facility] Comment on above: Result Comment: ALL [...] THIS PURPOSE. Performed By: #### 5 6101, [address] #### [address] CREATININE BLOODon 0 Creatinine [Mass/Vol] 1.07 mg/dL Normal 0.70-1.30 [facility] Comment on above: Performed By: #### 2 5656 #### [place] [address], [facility] Creatinine [Mass/Vol] mg/dL Normal >60 [facility] Comment on above: Performed By: #### 2 5656 #### [address] LUMBAR SPINE W CONTRASTon 10-13-2019 CT LUMBAR SPINE W CONTRAST [facility] Department of Radiology [address] [place] [phone] Patient Name: TAYLOR MCCLELLAN : 1955 Sex: M Age: Race: White Pt. Location: 84 Patient Status: O Ordered Date: 09/11/2019 2:50:00 PM Completed Date: 10/13/2019 11:37 AM Requesting Provider: JASEN HOWARD Attending Provider: JASEN HOWARD Report Copy To: LUI BRYSON Signs & Symptoms: M51.36 Other intervertebral disc degeneration, lumbar region I10 History: [place] Need Saturday appointment call [facility] [phone] [facility] auth# [id number] 09/16/19-10/15/19 cpt code 33199 *mla Comments: Exam: CT LUMBAR SPINE W [...] achievable Electronically signed: Fredy Salmeron. Transcribed by: [email or web address], User Resident: Electronically Signed by: FREDY SALMERON @ 10/13/2019 02:08 PM Normal [facility] LUMBAR MYELOGRAMon 0 LUMBAR MYELOGRAM [facility] Department of Radiology [address] [place] [phone] Patient Name: TAYLOR MCCLELLAN : 1955 [...] risks are acceptable. Consent was obtained. Timeout: [place]min[place] protocol timeout verification performed. PROCEDURE: Estimated blood [...] reports Electronically signed: Fredy Salmeron. Transcribed by: [email or web address], User Resident: KRISTINE BALLARD Electronically Signed by: FREDY FAVIOLA @ 10/13/2019 06:58 PM I personally read this/these film(s) with this resident Normal [facility] Comment on above: Order Comment: , , = ========= , Ordering Provider - JASEN HOWARD MD , PROTHROMBIN TIMEon 0 INR Coag (PPP) [Relative time] 1.05 {INR} Normal 0.91-1.16 [facility] Comment on above: Result Comment: ACCC [...] RANGE. CHEST 1995;108:[id number]. Performed By: #### 5 610, [address] #### [facility] [address] PT Coag (PPP) [Time] 13.7 s Normal 12.3-14.8 [facility] Comment on above: Result Comment: ALL RESULTS MUST BE INTERPRETED WITH RESPECT TO BLOOD DRAWING ARTIFACT OR DILUTION ERROR OF ANTICOAGULANT AT THE TIME OF SAMPLING. Performed By: #### 5 6101, [address] #### [facility] [address] [place] [address], [facility] Laboratory Studieson 019 HBV surface Ab Ql (S) Non reactive [facility] [place] [facility] Work Phone: Comment on above: Non Reactive: Incons istent with immunity, less than 10 mIU/mL Reactive: Consistent with immunity, greater than 9.9 mIU/mL HBV surface Ag IA Ql Negative [facility] Work Phone: Comment on above: Performed at: [place] [id number] [employer] Slotter Operator: Arnold Cabral PhD, Phone: [phone] HCV Ab Signal/Cutoff IA RelACnc 0.1 s/co ratio [facility] Work Phone: Hepatitis C Antibody Comment See comment [facility] Work Phone: Comment on above: Non reactive HCV ant ibody screen is consistent with no HCV infection, unless recent infection is suspected or other evidence exists to indicate HCV infection. HIV 1+2 Ab IA Ql Nonreactive [facility] Work Phone: Laboratory Studieson 018 Glucose mass conc Glu2: cleaned meter [facility] Work Phone: Glucose mass conc 121 mg/dL [facility] Work Phone: Comment on above: Random Glucose Refer ence Range is dependent on time and content of last meal. Glucose of more than 200 mg/dL in a nonstressed, ambulatory subject supports the diagnosis of Diabetes Mellitus. Calcium mass conc 8.7 mg/dL 8.2-10.2 [facility] Work Phone: Chloride molar conc 102 mmol/L 95-114 [facility] [place] Work Phone: CO2 molar conc 27.5 mmol/L 22.0-30.0 [facility] Work Phone: Creatinine mass conc 1.08 mg/dL 0.64-1.27 [facility] Work Phone: GFR/1.73 sq M predicted among blacks MDRD vol rate/area (S/P/Bld) mL/min/{1.73_m2} [facility] Work Phone: Comment on above: GFR estimated refere nce range: According to KDOQI guidelines, <60 ml/min/1.73m2 is sufficient to diagnose a patient with chronic kidney disease. GFR/1.73 sq M predicted among non-blacks MDRD vol rate/area (S/P/Bld) mL/min/{1.73_m2} [facility] Work Phone: Glucose mass conc 86 mg/dL 70-100 [facility] Work Phone: Comment on above: ADA recommended refe rence range Random Glucose Reference Range is dependent on time and content of last meal. Glucose of more than 200 mg/dL in a nonstressed, ambulatory subject supports the diagnosis of Diabetes Mellitus. Pharmacy Creatinine Clearance (Chem 88.1842 [facility] Work Phone: Potassium molar conc 3.5 mmol/L 3.5-5.1 [facility] Work Phone: Sodium molar conc 139 mmol/L 136-146 [facility] Work Phone: Urea nitrogen mass conc 10 mg/dL 9-23 [facility] Work Phone: Laboratory Studieson 018 Basophils #/vol (Bld) 0.1 10*3/uL 0.0-0.2 [facility] Work Phone: Basophils/100 WBC (Bld) 1.0 % [facility] Work Phone: Eosinophils #/vol (Bld) 0.2 10*3/uL 0.0-0.45 [facility] Work Phone: Eosinophils/100 WBC (Bld) 2.8 % [facility] Work Phone: Erythrocyte distribution width Ratio (RBC) 13.9 % 12.0-14.8 [facility] Work Phone: Hematocrit Volume Fraction (Bld) 36.3 % Low 38.8-50.0 [facility] Work Phone: Hemoglobin mass conc (Bld) 12.5 g/dL Low 13.0-17.0 [facility] Work Phone: Lymphocytes #/vol (Bld) 1.6 10*3/uL 1.00-4.8 [facility] Work Phone: Lymphocytes/100 WBC (Bld) 23.7 % [facility] Work Phone: MCH Entitic mass (RBC) 28.9 pg 27.5-35.2 [facility] Work Phone: MCHC mass conc (RBC) 34.3 g/dL 32.5-35.6 [facility] Work Phone: MCV Entitic volume (RBC) 84.4 fL 83.5-101 [facility] Work Phone: Monocytes #/vol (Bld) 0.4 10*3/uL 0.0-0.8 [facility] Work Phone: Monocytes/100 WBC (Bld) 6.7 % [facility] Work Phone: Neutrophils #/vol (Bld) 4.4 10*3/uL 1.8-7.7 [facility] Work Phone: Neutrophils/100 WBC (Bld) 65.8 % [facility] Work Phone: Platelet mean volume Entitic volume (Bld) 10.3 fL High 6.6-10.1 [facility] Work Phone: Platelets #/vol (Bld) 199 10*3/uL 150-450 [facility] Work Phone: RBC #/vol (Bld) 4.31 10*6/uL 3.90-5.60 [facility] Work Phone: WBC #/vol (Bld) 6.6 10*3/uL 4.1-10.5 [facility] Work Phone: Laboratory Studieson 018 Appearance Nom (U) Slightly cloudy Abnormal [facility] [place] [facility] Work Phone: Bacteria Auto Ql (U) None seen [facility] Work Phone: Bilirubin Ql (U) Negative [facility] Work Phone: Color Nom (U) Yellow [facility] Work Phone: Creatinine mass conc (U) 143.4 mg/dL [facility] Work Phone: Comment on above: No reference range e stablished Epithelial cells Auto #/area (Urine sed) Rare /HPF [facility] Work Phone: Glucose Automated test strip mass conc (U) Normal mg/dL [facility] Work Phone: Hemoglobin Automated test strip Ql (U) 1+ High [facility] Work Phone: Ketones mass conc (U) 1+ High [facility] Work Phone: Leukocyte esterase Automated test strip Ql (U) Negative [facility] Work Phone: Nitrite Automated test strip Ql (U) Negative [facility] Work Phone: pH (U) 5.5 [pH] 5.0-9.0 [facility] Work Phone: pH (U) [pH] 1.001-1.03 0 [facility] Work Phone: Protein mass conc (U) Negative [facility] Work Phone: RBC Auto #/area (Urine sed) 1-2 /HPF [facility] Work Phone: Sodium molar conc (U) 144.0 mmol/L [facility] [place] [facility] Work Phone: Comment on above: No reference range e stablished Urate crystals LM.HPF #/area (Urine sed) 3 /[HPF] [facility] Work Phone: Urobilinogen mass conc (U) Normal mg/dL [facility] Work Phone: WBC Auto #/area (Urine sed) None seen /HPF [facility] Work Phone: Albumin mass conc 2.7 g/dL Low 3.2-5.5 [facility] Work Phone: Albumin/Globulin mass ratio 0.8 {ratio} [facility] Work Phone: ALP enzyme act/vol 39 U/L 32-92 [facility] Work Phone: ALT No additional P-5'-P enzyme act/vol 14 U/L 10-60 [facility] Work Phone: AST enzyme act/vol 25 U/L 10-42 [facility] Work Phone: Bilirubin mass conc 0.6 mg/dL 0.3-1.2 [facility] Work Phone: Globulin mass conc (S) 3.6 g/dL [facility] Work Phone: Protein mass conc 6.3 g/dL 6.1-7.9 [facility] Work Phone: Laboratory Studieson 018 T3 free mass conc 3.28 pg/mL 2.50-3.90 [facility] Work Phone: T4 free mass conc 0.95 ng/dL 0.61-1.12 [facility] Work Phone: Amphetamines Ql (U) Negative [facility] Work Phone: Barbiturates Ql (U) Negative [facility] Work Phone: Benzodiazepines Ql (U) Positive High [facility] Work Phone: Cannabinoids Screen Ql (U) Negative [facility] Work Phone: Comment on above: These are unconfirme d results and should not be used for legal purposes. Drug Cut-Off Concentration: AMPH 1000 ng/mL EWA 200 ng/mL JOHN 200 ng/mL COCM 300 ng/mL OP 300 ng/mL PCP 25 ng/mL THC 20 ng/mL Cocaine Ql (U) Negative [facility] Work Phone: Opiates Ql (U) Positive High [facility] Work Phone: Phencyclidine Ql (U) Negative [facility] Work Phone: Ammonia mass conc (Unsp spec) 20 umol/L 11-35 [facility] Work Phone: Bilirubin.direct mass conc 0.2 mg/dL 0.0-0.4 [facility] Work Phone: Bilirubin.indirect mass conc 0.8 mg/dL [facility] Work Phone: Cobalamin (Vitamin B12) mass conc 365 pg/mL 180-914 [facility] Work Phone: Folate mass conc 12.4 ng/mL [facility] Work Phone: Comment on above: Folate reference ran ge: >5.9 ng/ml The WHO technical consultation on folate and vitamin b12 deficiencies has determined that folate concentrations less than 4 ng/ml are considered deficient. Magnesium molar conc (Unsp spec) 1.7 mg/dL 1.6-2.6 [facility] Work Phone: Thyrotropin Qn 0.20 uIU/mL Low 0.45-5.33 [facility] Work Phone: Comment on above: Revised TSH Assay This assay is standardized to the World Health Organization International Standard for human TSH. Please note Reference Intervals have changed. Laboratory Studieson 018 Casts LM Nom (Urine sed) N/A [facility] Work Phone: Epithelial cells.renal LM.HPF #/area (Urine sed) Rare /HPF [facility] Work Phone: Hyaline casts Auto #/vol (U) 20-49 /LPF High [facility] Work Phone: Lactate molar conc (U) 0.9 mmol/L [facility] Work Phone: CK enzyme act/vol 107 U/L 22-269 [facility] Work Phone: Phosphate mass conc 5.0 mg/dL High 2.5-4.6 [facility] Work Phone: Laboratory Studieson 017 Glucose mass conc 122 mg/dL [facility] Work Phone: Comment on above: RANDOM GLUCOSE REFER ENCE RANGE IS DEPENDENT ON TIME AND CONTENT OF LAST MEAL.GLUCOSE OF MORE THAN 200MG/DL IN A NONSTRESSED,AMBULATORY SUBJECT SUPPORTS THE DIAGNOSIS OF DIABETES MELLITUS. Laboratory Studieson 017 Basophils #/vol (Bld) 0.1 10*3/uL 0.0-0.2 [facility] Work Phone: Basophils/100 WBC (Bld) 0.9 % [facility] Work Phone: Calcium mass conc 8.6 mg/dL 8.2-10.2 [facility] Work Phone: Chloride molar conc 109 mmol/L 95-114 [facility] Work Phone: CK enzyme act/vol 355 U/L High 22-269 [facility] Work Phone: CO2 molar conc 19.5 mmol/L Low 22.0-30.0 [facility] Work Phone: Creatinine mass conc 0.99 mg/dL 0.64-1.27 [facility] Work Phone: Eosinophils #/vol (Bld) 0.20 10*3/uL 0.0-0.45 [facility] Work Phone: Eosinophils/100 WBC (Bld) 3.3 % [facility] Work Phone: Erythrocyte distribution width Ratio (RBC) 13.8 % 12.0-14.8 [facility] Work Phone: Estimated GFR (Non- > 60 [facility] Work Phone: GFR/1.73 sq M.predicted MDRD (S/P/Bld) [Vol rate/Area] mL/min/{1.73_m2} [facility] Comment on above: GFR estimated refere nce range: According to KDOQI guidelines, <60 ml/min/1.73m2 is sufficient to diagnose a patient with chronic kidney disease. GFR/1.73 sq M.predicted MDRD vol rate/area mL/min/{1.73_m2} [facility] Work Phone: Comment on above: GFR estimated refere nce range: According to KDOQI guidelines, <60 ml/min/1.73m2 is sufficient to diagnose a patient with chronic kidney disease. Glucose mass conc 94 mg/dL 70-100 [facility] Work Phone: Comment on above: ADA RECOMMENDED REFE RENCE RANGE Hematocrit Volume Fraction (Bld) 41.5 % 38.8-50.0 [facility] Work Phone: Hemoglobin mass conc (Bld) 14.1 g/dL 13.0-17.0 [facility] Work Phone: Lymphocytes #/vol (Bld) 2.6 10*3/uL 1.00-4.8 [facility] Work Phone: Lymphocytes/100 WBC (Bld) 40.3 % [facility] Work Phone: MCH Entitic mass (RBC) 30.4 pg 27.5-35.2 [facility] Work Phone: MCHC mass conc (RBC) 34.1 g/dL 32.5-35.6 [facility] Work Phone: MCV Entitic volume (RBC) 89.2 fL 83.5-101 [facility] Work Phone: Monocytes #/vol (Bld) 0.4 10*3/uL 0.0-0.8 [facility] Work Phone: Monocytes/100 WBC (Bld) 6.4 % [facility] Work Phone: Neutrophils #/vol (Bld) 3.1 10*3/uL 1.8-7.7 [facility] Work Phone: Neutrophils (%) (Auto) 49.1 % [facility] Work Phone: Neutrophils/100 WBC (Bld) 49.1 % [facility] Platelet mean volume Entitic volume (Bld) 10.7 fL High 6.6-10.1 [facility] Work Phone: Platelets #/vol (Bld) 160 10*3/uL 150-450 [facility] Work Phone: Potassium molar conc 3.4 mmol/L Low 3.5-5.1 [facility] Work Phone: RBC #/vol (Bld) 4.65 10*6/uL 3.90-5.60 [facility] Work Phone: Sodium molar conc 138 mmol/L 136-146 [facility] Work Phone: Urea nitrogen mass conc 7 mg/dL Low 9-23 [facility] Work Phone: WBC #/vol (Bld) 6.4 10*3/uL 4.1-10.5 [facility] Work Phone: Laboratory Studieson 017 Platelet Aggregation (ADP) 57.8 % 0-100 [facility] Work Phone: Comment on above: NO REFERENCE RANGE I S ESTABLISHED OR APPLICABLE Platelet Inhibition ADP 42.2 % 0-100 [facility] Work Phone: Comment on above: NO REFERENCE RANGE I S ESTABLISHED OR APPLICABLE TEG Max Amplitude (Citrated) 69.9 mm 50-70 [facility] Work Phone: TEG Max Amplitude (Rapid) 29.9 0-90 [facility] Work Phone: Comment on above: TEG MA A HAS NO REFE RENCE RANGE Thrombelastograph (TEG) Net G ADP 53.0 MM 0-90 [facility] Work Phone: Comment on above: TEG MA ADP HAS NO RE FERENCE RANGE Albumin mass conc 3.1 g/dL Low 3.2-5.5 [facility] Work Phone: Albumin/Globulin mass ratio 1.0 {ratio} [facility] Work Phone: ALP enzyme act/vol 44 U/L 32-92 [facility] Work Phone: ALT enzyme act/vol 18 U/L 10-60 [facility] Work Phone: AST enzyme act/vol 27 U/L 10-42 [facility] Work Phone: Bilirubin Ql (U) 0.6 mg/dL 0.3-1.2 [facility] Work Phone: Bilirubin.direct mass conc 0.1 mg/dL 0.0-0.4 [facility] Work Phone: Bilirubin.indirect mass conc (Body fld) 0.5 mg/dL [facility] Work Phone: Cholesterol in HDL mass conc 26 mg/dL Low 29-71 [facility] Work Phone: Comment on above: HDL CHOL ATP-III CLA SSIFICATION Cardiovascular Risk HDL > or equal to 60 mg/dL Low HDL < 40 mg/dL High Cholesterol mass conc 150 mg/dL 140-200 [facility] Work Phone: Comment on above: CHOL less than 200 m g/dL Low risk CHOL 201-239 mg/dL Borderline risk CHOL 240 mg/dL and greater High risk Cholesterol mass conc 30 mg/dL [facility] Work Phone: Cholesterol.total/Chol esterol in HDL mass ratio 5.8 {ratio} [facility] Work Phone: Globulin mass conc (S) 3.2 g/dL [facility] Work Phone: LDL Cholesterol, Calculated 93 mg/dL 0-100 [facility] Work Phone: Comment on above: LDL ATP III CLASSIFI CATION LDL less than 100 mg/dL Optimal LDL 100-129 mg/dL Near or above optimal LDL 130-159 mg/dL Borderline high LDL 160-189 mg/dL High LDL greater than 189 mg/dL Very high Protein mass conc 6.3 g/dL 6.1-7.9 [facility] Work Phone: Thyrotropin Qn 1.12 uIU/mL 0.45-5.33 [facility] Work Phone: Comment on above: Revised TSH Assay This assay is standardized to the World Health Organization International Standard for human TSH. Please note Reference Intervals have changed. Triglyceride mass conc 153 mg/dL High 35-149 [facility] Work Phone: Comment on above: TRIG ATP III CLASSIF ICATION TRIG less than 150 mg/dL Normal TRIG 150-199 mg/dL Borderline high TRIG 200-500 mg/dL High TRIG greater than 500 mg/dL Very high Standard traceable to the Center for Disease Conrtrol and Prevention (CDC) test method. Laboratory Studieson 017 Glucose mass conc Glu2: cleaned meter [facility] Work Phone: Ammonia mass conc (P) 19 umol/L 11-35 [facility] Work Phone: Cobalamin (Vitamin B12) mass conc 202 pg/mL 180-914 [facility] Work Phone: Folate 10.7 ng/mL [facility] Work Phone: Comment on above: FOLATE REFERENCE RAN GE: >5.9 ng/mL The WHO Technical Consultation on folate and vitamin B12 deficiencies has determined that folate concentrations less than 4 ng/mL are considered deficient. Amphetamines Ql (U) Negative [facility] Work Phone: Appearance Nom (U) Clear [facility] Work Phone: Bacteria LM.HPF #/area (Urine sed) None seen [facility] Work Phone: Benzodiazepines Ql (U) Positive High Fi [facility] Work Phone: Bilirubin Ql (U) Negative [facility] Work Phone: Cocaine Ql (U) Negative [facility] Work Phone: Color Nom (U) Yellow [facility] Work Phone: Epithelial cells.squamous LM.HPF #/area (Urine sed) 5-9 /hpf High [facility] Work Phone: Glucose mass conc (U) 250 mg/dL High [facility] Work Phone: Hyaline casts LM Ql (Urine sed) 0-8 /lpf [facility] Work Phone: Ketones Ql (U) Trace [facility] Work Phone: Leukocyte esterase Test strip Ql (U) Negative [facility] Work Phone: Nitrite Ql (U) Negative [facility] Work Phone: Opiates Ql (U) Negative [facility] Work Phone: pH (U) 5.0 [pH] 5.0-9.0 [facility] Work Phone: Phencyclidine Ql (U) Negative [facility] Work Phone: Protein Ql (U) Negative [facility] Work Phone: RBC #/vol (U) 50-100 /hpf [facility] Work Phone: Specific gravity Relative Density (U) 1.039 High 1.001-1.03 0 [facility] Work Phone: Urine Barbiturates Screen Negative [facility] Work Phone: Urine Collection Type Type [facility] Work Phone: Comment on above: CATHETERIZED Urine Drug Screen Comment See comment [facility] Work Phone: Comment on above: THESE ARE UNCONFIRME D RESULTS AND SHOULD NOT BE USED FOR LEGAL PURPOSES. DRUG CUT-OFF CONCENTRATION: AMPH 1000 ng/mL EWA 200 ng/mL JOHN 200 ng/mL COCM 300 ng/mL OP 300 ng/mL PCP 25 ng/mL THC 20 ng/mL Urine Marijuana (THC) Screen Negative [facility] Work Phone: Urine Occult Blood 3+ High [facility] Work Phone: Urine Transitional Epithelial Cells 3-4 /hpf [facility] Work Phone: Urobilinogen Qn (U) Normal mg/dL [facility] Work Phone: WBC #/vol (U) 0-1 /hpf [facility] Work Phone: Bedside Ionized Calcium (Deepti) 1.22 mmol/L 1.12-1.32 [facility] Work Phone: Bedside Total CO2 23 mmol/L 23-29 [facility] Work Phone: Chloride molar conc 110.0 mmol/L High 98-109 [facility] Work Phone: Creatinine mass conc 1.2 mg/dL 0.6-1.3 [facility] Work Phone: Comment on above: ER/ESD PHYSICIAN IS NOTIFIED/SHOWN ALL ISTAT RESULTS. CRITICAL VALUES MAY BE CONFIRMED BY LABORATORY TESTING IF DEEMED NESCESSARY BY ER ATTENDING DOCTOR Glucose mass conc 135 mg/dL High 70-105 [facility] Work Phone: Hematocrit Volume Fraction (Bld) 48.0 % 38.0-51.0 [facility] Work Phone: Hemoglobin mass conc (Bld) 16.3 g/dL 12.0-17.0 [facility] Work Phone: Potassium molar conc 4.7 mmol/L 3.5-4.9 [facility] Work Phone: Sodium molar conc 144 mmol/L 138-146 [facility] Work Phone: Urea nitrogen mass conc 15 mg/dL 8-26 [facility] Work Phone: Amylase enzyme act/vol 39 U/L 28-100 [facility] Work Phone: CK.MB mass conc 9.5 ng/mL High 0.6-6.3 [facility] Work Phone: Creatine Kinase MB Relative Index 1.5 0.00-2.50 [facility] Work Phone: Ethyl Alcohol Level < 5 mg/dL [facility] Work Phone: Glucose mass conc 140 mg/dL High 70-100 [facility] Work Phone: Comment on above: RANDOM GLUCOSE REFER ENCE RANGE IS DEPENDENT ON TIME AND CONTENT OF LAST MEAL.GLUCOSE OF MORE THAN 200MG/DL IN A NONSTRESSED,AMBULATORY SUBJECT SUPPORTS THE DIAGNOSIS OF DIABETES MELLITUS. Lipase enzyme act/vol 22.0 U/L 22-51 [facility] Work Phone: Percent Ethyl Alcohol < 0.005 % [facility] Work Phone: Troponin I.cardiac mass conc ng/mL 0-0.02 [facility] Work Phone: Comment on above: [place] Cut off value > or equal to 0.03 ng/mL in conjunction with clinical conditions of myocardial infarction. (www.escardio.org/guidelines) Glucose mass conc 134 mg/dL [facility] Work Phone: Hemoglobin A1c/Hemoglobin.total mass fraction (Bld) 6.3 % High 4.3-5.6 [facility] Work Phone: Comment on above: Increased risk for d iabetes: 5.7 - 6.4 Diabetes: >6.4 Glycemic control for adults with diabetes: <7.0 Vital Signs Date Time Vital Sign Value Performing Clinician Facility 11-05-2022 14:30-0500 Diastolic blood pressure 72 mm[Hg] [address] Other [facility] Other 11-05-2022 14:30-0500 SaO2% (BldA) [Mass fraction] 97 % [address] Other [facility] Other 11-05-2022 14:30-0500 Systolic blood pressure 118 mm[Hg] [address] Other [facility] Other 10-18-2022 14:00-0500 Body weight 96.71 kg Benson Domingo Other [facility] Other 10-18-2022 14:00-0500 Diastolic blood pressure 64 mm[Hg] [address] Other [facility] Other 10-18-2022 14:00-0500 SaO2% (BldA) [Mass fraction] 98 % Benson Domingo Other [facility] Other 10-18-2022 14:00-0500 Systolic blood pressure 120 mm[Hg] [address] Other [facility] Other 07-20-2022 16:00-0500 Body temperature 97.4 [degF] MD Genesis Reynolds Work Phone: [facility] 07-20-2022 16:00-0500 Diastolic blood pressure 72 mm[Hg] MD Genesis Reynolds Work Phone: [facility] 07-20-2022 16:00-0500 Heart rate 61 /min MD Genesis Reynolds Work Phone: [facility] 07-20-2022 16:00-0500 Respiratory rate 16 /min MD Genesis Reynolds Work Phone: [facility] 07-20-2022 16:00-0500 SaO2% (BldA) [Mass fraction] 98 % MD Genesis Reynolds Work Phone: [facility] 07-20-2022 16:00-0500 Systolic blood pressure 159 mm[Hg] MD Genesis Reynolds Work Phone: [facility] 07-20-2022 06:00-0500 Body weight 95.3 kg MD Genesis Reynolds Work Phone: [facility] 07-18-2022 11:22-0500 Body height 177.8 cm MD Genesis Reynolds Work Phone: [facility] 07-17-2022 22:14-0500 Body height 177.8 cm MD Genesis Reynolds Work Phone: [facility] 07-17-2022 22:14-0500 Body temperature 97.5 [degF] MD Genesis Reynolds Work Phone: [facility] 07-17-2022 22:14-0500 Body weight 95.9 kg MD Genesis Reynolds Work Phone: [facility] 07-17-2022 22:14-0500 Diastolic blood pressure 87 mm[Hg] MD Genesis Reynolds Work Phone: [facility] 07-17-2022 22:14-0500 Heart rate 74 /min MD Genesis Reynolds Work Phone: [facility] 07-17-2022 22:14-0500 Respiratory rate 16 /min MD Genesis Reynolds Work Phone: [facility] 07-17-2022 22:14-0500 SaO2% (BldA) [Mass fraction] 99 % MD Genesis Reynolds Work Phone: [facility] 07-17-2022 22:14-0500 Systolic blood pressure 180 mm[Hg] MD Genesis Reynolds Work Phone: [facility] 02-13-2018 14:12-0400 Body Temperature 98 [degF] [facility] 02-13-2018 14:12-0400 BP Diastolic 74 mm[Hg] Bro Srivastavajudy [facility] 02-13-2018 14:12-0400 BP Systolic 113 mm[Hg] Bro Sanford [facility] 02-13-2018 14:12-0400 Pulse Oximetry 95 % Bro [facility] 02-13-2018 14:12-0400 Respiratory Rate 18 /min [facility] 02-11-2018 22:00-0400 Pulse (Heart Rate) 73 /min [facility] NEGATED: Highlighted row BMI (Body Mass Index) [facility] NEGATED: Highlighted row BMI (Body Mass Index) [facility] NEGATED: Highlighted row Height [facility]: Highlighted row Height Bro Ashtonpetersonjudy [facility] Encounters Encounter Date Encounter Type Care Provider Facility Start: 06-24-2024 End: 06-25-2024 Refill Vianey Zaldivar MD Work Phone: [facility] Comment on above: Primary hypertension (CMS/HCC) (Primary Dx) Start: 05-04-2024 ambulatory GENESIS Hai [facility] Start: 04-30-2024 ambulatory GENESIS M [facility] Start: 04-29-2024 End: 05-04-2024 Emergency department patient visit GENESIS Valles Arias [facility] Start: 03-26-2024 End: 03-26-2024 ambulatory [facility] Start: 02-25-2024 End: 02-25-2024 ambulatory FESTUS [facility] Start: 02-17-2024 End: 02-17-2024 ambulatory [facility] Start: 02-17-2024 End: 02-17-2024 Encounter for other preprocedural examination [facility] Start: 11-10-2023 End: 11-11-2023 ambulatory SUSAN URIOSTEGUI [facility] Start: 11-10-2023 End: 11-10-2023 Subsequent hospital visit by physician Bro Sanford MD Work Phone: [facility] Start: 04-26-2023 End: 04-27-2023 ambulatory EBENEZER HOPKINS [facility] Start: 04-25-2023 End: 04-26-2023 Emergency department patient visit BRO SANFORD [facility] Start: 04-19-2023 ambulatory Danilo Hayes acility:[facility] Start: 01-17-2023 End: 01-17-[address] GENESIS REYNOLDS . Facility:[facility] Start: 12-06-2022 End: 12-06-[address] Other [facility] Other Start: 12-06-[address] [facility] [employer] Start: 11-15-2022 End: 11-17-2022 Evaluation and management of inpatient DR GENESIS REYNOLDS . Facility:[facility] Start: 11-13-2022 End: 11-13-[address] Other [facility] Other Start: 11-13-[address] [facility] Start: 11-05-2022 End: 11-05-2022 ambulatory Benson Domingo Other [facility] Other Start: 11-05-2022 Office outpatient vi sit 15 minutes Benson Domingo [facility] Start: 11-01-2022 End: 11-01-2022 ambulatory Genesis Reynolds Facility:[facility] Start: 11-01-2022 End: 11-01-2022 ambulatory MD Genesis Reynolds Work Phone: [facility] Work Phone: Start: 11-01-2022 End: 11-01-2022 Patient encounter procedure MD Genesis Reynolds Work Phone: [facility] Work Phone: Start: 10-26-2022 End: 10-27-[address] GENESIS REYNOLDS . Facility:[facility] Start: 10-25-2022 (PROC) PROCEDURE [address] [facility] Start: 10-25-2022 End: 10-26-[address] GENESIS REYNOLDS . [facility] Other Start: 10-18-2022 End: 10-18-2022 ambulatory Benson Mcdowellky Other [facility] Other Start: 10-18-2022 Office outpatient ne w [...] of inpatient MD Genesis Reynolds Work Phone: [facility] Start: 07-17-2022 End: 07-20-2022 observation encounter MD Genesis Reynolds Work Phone: [facility] Work Phone: Start: 07-15-2022 End: 07-16-[address] GENESIS REYNOLDS . Facility:[facility] Start: 06-21-2022 End: 06-22-[address] GENESIS REYNOLDS . Facility:[facility] Start: 05-13-2022 End: 05-16-2022 Evaluation and management of inpatient DR GENESIS REYNOLDS . Facility:[facility] Start: 05-07-[address] GENESIS REYNOLDS . Facili ty:[facility] Start: 12-17-2019 Preoperative state MD Genesis Reynolds Work Phone: [facility] Start: 12-24-2018 End: 12-24-2018 Patient encounter procedure Bro [facility] Start: 02-08-2018 End: 02-13-2018 [facility] Start: 01-12-2018 End: 01-17-2018 [facility] Start: 04-02-2017 End: 04-05-2017 [facility] Start: 06-09-2006 End: 07-09-2006 Discharged [facility] Start: 04-09-2006 End: 05-09-2006 Discharged Recurring [facility] Start: 03-09-2006 End: 04-08-2006 Discharged Recurring [facility] Start: 02-22-2006 End: 03-08-2006 Discharged Recurring [facility] Start: 02-10-2006 End: 02-14-2006 Evaluation and management of inpatient [facility] Start: 05-10-2000 End: 06-08-2000 Discharged Recurring [facility] Start: 04-09-2000 End: 05-09-2000 Discharged Recurring [facility] Start: 03-09-2000 End: 04-08-2000 Discharged Recurring [facility] Start: 02-08-2000 End: 03-08-2000 Discharged Recurring [facility] Start: 01-08-2000 End: 02-07-2000 Discharged Recurring [facility] Start: 12-09-1999 End: 02-07-2000 Discharged Recurring [facility] Start: 11-08-1999 End: 12-08-1999 Discharged Recurring [facility] Start: 10-10-1999 End: 11-07-1999 Discharged Recurring [facility] Start: 09-09-1999 End: 10-09-1999 Discharged Recurring Bro Sanford [facility] Start: 08-09-1999 End: 10-09-1999 Discharged Recurring Bro Sanford [facility] Start: 07-10-1999 End: 08-08-1999 Discharged Recurring Bro [facility] Start: 06-26-1999 End: 07-09-1999 Discharged Recurring [facility] Start: 03-29-1998 End: 03-29-1998 Patient encounter procedure [facility] Start: 02-24-1987 End: 02-28-1987 Evaluation and management of inpatient [facility] Start: 12-22-1986 End: 12-23-1986 Evaluation and management of inpatient [facility] Procedures Date Procedure Procedure Detail Performing Clinician Start: 11-10-2023 Urnls dip stick/tabl et reagent auto microscopy Susan Uriostegui LOADING UNIT OPERATOR - DIRECTOR DATA PROCESSING Work Phone: Start: 11-01-2022 X-ray of lumbar [...] - Tdap) DTaP/Tdap/Td vaccine (2 - Tdap) [facility] Start: 05-10-2024 Influenza vaccination Influenza Vacc ine (#1) [facility] Start: 04-26-2024 Lipid panel Lipids [facility] Start: 04-25-2024 GFR test (Diabetes, CKD 3-4, OR last GFR 15-59) GFR test (Diabetes, CKD 3-4, OR last GFR 15-59) [facility] Start: 08-05-2023 Annual Wellness Visi t (Medicare) Annual Wellness Visit (Medicare) [facility] Start: 05-10-2023 COVID-19 Vaccine ( season) COVID-19 Vaccine ( season) [facility] Start: 04-09-2023 Influenza vaccination Flu vaccine (# 1) [facility] Start: 07-20-2022 [facility] Start: 07-18-2022 Lipid panel [facility] Start: 07-17-2022 Hospital admission [facility] Start: 07-17-2022 Physical therapy procedure [facility] Start: 07-17-2022 Referral to nuclear control room operator [facility] Start: 07-17-2022 Referral to occupational therapist [facility] Start: 07-17-2022 [facility] Start: 07-17-2022 [facility] Start: 11-29-2021 Pneumococcal Vaccine : 65+ Years (2 of 2 - PPSV23 or PCV20) Pneumococcal Vaccine: 65+ Years (2 of 2 - PPSV23 or PCV20) [facility] Start: 2021 Abdominal aortic aneurysm screening AAA screen [facility] Start: 01-24-2021 Pneumococcal 65+ yea rs Vaccine (2 - PPSV23 or PCV20) Pneumococcal 65+ years Vaccine (2 - PPSV23 or PCV20) [facility] [employer] Start: 2016 Respiratory Syncytia l Virus (RSV) or age 60 yrs+ (1 - 1-dose 60+ series) Respiratory Syncytial Virus (RSV) or age 60 yrs+ (1 - 1-dose 60+ series) [facility] Start: 2006 Screening for malign ant neoplasm of lung Low dose CT lung screening &/or counseling [facility] Start: 2006 Shingles vaccine (1 of 2) Shingles vaccine (1 of 2) [facility] Start: 2001 Screening for malign ant neoplasm of colon [facility] Start: 1974 Glaucoma screening Diabetic retinal exam [facility] Start: 1974 Hepatitis C screening Hepatitis C sc reen [facility] Start: 1974 Urine screening for protein Diabetic Alb to Cr ratio (uACR) test [facility] [employer] Start: 1968 Depression Screen Depression Screen [facility] Start: 1966 Diabetic foot examination Diabetic foot exam [facility] Start: 1966 Hemoglobin A1c measurement A1C test (Diabetic or Prediabetic) [facility] Start: 1956 Screening for malign ant neoplasm of colon [facility] Healthcare Bacteria identified in Blood by Culture Blood Culture [facility] Blood culture for bacteria, including anaerobic screen Blood Culture [facility] End: 11-10-2023 Culture, Urine [facility] Work Phone: Comment on above: Once for 1 Occurrenc es starting 11/10/2023 until 11/10/2023 Patient referral [facility] Work Phone: [facility] Immunizations Immunization Date Immunization Notes Care Provider [facility] 06-23-2021 influenza virus vacc ine, unspecified formulation Vianey Zaldivar MD Work Phone: [facility] Healthcare Payers Date Payer Category Payer Self-pay 2021 Medicare MEDICARE [id number] 2011 [facility] Mem er [id number] 2009 Unknown [id number] 1959 Medicare [id number] 1959 Unknown [id number] 1956 Unknown [id number] 2.840.1.506025.3.57 9.2.593 1956 Unknown [id number] 2.16840.1.158770.3.57 9.2.593 1956 Unknown [id number] 2.16840.1.351318.3.57 9.2.593 1956 Unknown [id number] 2.840.1.269535.3.57 9.2.593 1956 Unknown [id number] 2.16840.1.539043.3.57 9.2.593 1956 Unknown [id number] 2.16840.1.369565.3.57 9.2.593 1956 Unknown [id number] 2.16840.1.900941.3.57 9.2.593 1956 Unknown [id number] 2.16840.1.860402.3.57 9.2.593 1956 Unknown [id number] 2.16.840.1.139024.3.57 9.2.593 1956 Unknown [id number] 2.16.840.1.001830.3.57 9.2.593 1956 Unknown [id number] 2.16.840.1.343794.3.57 9.2.356 1956 Unknown [id number] 2.16.840.1.072869.3.57 9.2.356 1956 Unknown [id number] 2.16.840.1.552552.3.57 9.2.356 1956 Unknown [id number] 2.16.840.1.469876.3.57 9.2.356 1956 Unknown [id number] 2.16.840.1.565759.3.57 9.2.356 1956 Unknown [id number] 2.16.840.1.356195.3.57 9.2.356 1956 Unknown [id number] 2.16.840.1.096815.3.57 9.2.173 1956 Unknown [id number] 2.16.840.1.084189.3.57 9.2.1286 1956 Unknown [id number] 2.16.840.1.993702.3.57 9.2.1286 1956 Unknown [id number] 2.16.840.1.562054.3.57 9.2.1286 1956 Unknown [id number] 2.16.840.1.891968.3.57 9.2.1286 Unknown [facility] [employer] [id number] Unknown [id number] 2.16.840.1.566791.3.57 9.2.531 Unknown [id number] 2.16.840.1.852072.3.57 9.2.531 Social History Date Type Detail Facility Start: 07-17-2022 End: 07-18-2022 Tobacco smoking status NHIS Smoker (finding) [facility] Start: 1955 Sex Assigned At Male [facility] Start: 04-25-2023 Sex Assigned At [facility] [employer] Other Start: 12-26-2016 Tobacco smoking status KYIS Smokes tobacco daily [facility] Sensitive Object History of tobacco use Cigarette Smoker B ON [employer] Start: 12-26-2016 End: 04-25-2023 Cigarettes smoked current (pack per day) - Reported 1.5 BON [employer] Start: 12-26-2016 Tobacco use and exposure Smokeless tobacco non-user [facility] [employer] Start: 04-25-2023 Alcohol intake Current non-drinker of alcohol (finding) [facility] [employer] Start: 1955 Sex Assigned At Not on file [facility] Sensitive Object [facility] smoking consumption unknown [facility] Medical Equipment Procedure Code Equipment Code Equipment Origin al Text Equipment Identifier Dates [id number] Start: 12-24-2018 End: 04-11-2019 Glucose test strips Start : 12-24-2018 End: 04-10-2019 Glucose test strips Start : 12-24-2018 End: 04-10-2019 Glucose test strips Start : 12-24-2018 End: 04-10-2019 Goals Date Patient Goal Desired Activity /State Functional Status Date Assessment Result Facility 07-20-2022 Functional status Patient at Baseline [facility] Work Phone: Mental Status Date Assessment Result Facility 07-20-2022 Cognitive function Cognitive Sta tus Patient at Baseline [facility] Work Phone: Clinical Notes 2018 to 06-25-2024 Telephone Encounter - Susan Uriostegui NP - 06/25/2024 5:07 PM EDTTelephone Encounter - Ssuan Uriostegui NP - 06/25/2024 5:07 PM EDT Note Date & Type Note Facility 06-25-2024 Telephone encount er Note Rx for losartan is sent. [facility] 06-25-2024 Miscellaneous Notes Formattin g of this note might be different from the original. Rx for losartan is sent. documented in this encounter [facility] 03-26-2024 Note [facility] Cardiology Clinic Note Chief Complaint: New patient here to establish care. Ref from Dr. Reynolds for abnormal stress test. 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 Stress test was [...] Coronary artery disease, PVD (peripheral vascular disease) ([facility]), and Stroke ([facility]). Surgical History He has a [...] no acute distress. HEAD: atraumatic, normocephalic. EYES: DILLNA, EOMI. NECK: trachea midline, no JVD present, [...] Coronary angiography: Left (more content not included)... [facility] 02-25-2024 Note Patient: Taylor briceño Procedure Information Date/Time: 02/25/24 1030 Procedure: Coronary angiography (Left) - andrea Location: [facility] [employer] 3 / [facility] (Cath) Providers: Festus Castillo [...] consented to blood products. Additional Equipment Requests [facility] 02-17-2024 Note [facility] Cardiology Clinic Note Chief Complaint: New patient here to establish care. Ref from Dr. Reynolds for abnormal stress test. 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 Stress test was [...] catheterization. I will not be in the [employer] for the next 3 to 4 weeks; [...] antiplatelet therapy, moder (more content not included)... [facility] 11-05-2022 Evaluation note Encounter Date Diagnosis [...] (ICD-10 - G89.29) Follow up after procedure. [facility] Other 02-09-2023 Evaluation note* Encounter Date Diagnosis [...] cant remember who the surgeon was in [place]. He presents with his today, both the [...] negative findings were considered in medical decision-making. [facility] Other 11-11-2022 Discharge summary Author Sang [facility] July 20, 2022 6:39pm Note Date/Time July 20, 2022 3:04pm [facility] [address] [place] [id number] Discharge Summary Signed Patient: Taylor Mcclellan SR MR#: [id number] : 1955 Acct:[id number] Age/Sex: 66 / M Adm Date: 2 Loc: Room: [address] [place] [address]: Sang Bauer MD Copies to: [...] Discharge Plan Discharge Plan Patient Disposition: Senior Living Facility Activity: No Activity Restriction Diet: Low-Sodium [...] tablet 75 mg PO DAILY Discontinued hydrocodone-acetaminophen [[place]] 5-325 mg tablet 1 tab PO BID PRN (Reason: Pain) Qty: 0 0RF Other Ambulatory Orders: DME Home Medical Equipment (Routine) Timeframe: [id number] Location: Determined by Patient Ordered By: Sang Bauer Follow Up: Lilia Hopper APRN [Nurse Practitioner] - 08/22/22 10:30 am Documented By: Sang Bauer MD 07/20/22 1502 Signed By: <Electronically signed by Sang Bauer MD> 07/20/22 2672 [facility] Work Phone: 1(979) 888-837611-11-2022 Progress note Author Itzel Adams [facility] July 20, 2022 8:06am Note Date/Time July 20, 2022 8:06am [facility] [address] [place] [address] Cardiology Progress Note Signed Patient: Taylor Mcclellan MR#: [id number] : 1955 Acct:[id number] Age/Sex: 66 / M Adm Date: 2 Loc: Room: [address] [place] [address] Type: ADM INOo Attending Dr: Sang Bauer [...] it is a single-vessel bypass done in [place] record is not available patient and his cannot remember which hospital he had his surgery at. He does not follow with cardiology Qualifiers: Coronary Disease-Associated Artery/Lesion type: [place] artery [place] vs. transplanted heart: [place] heart Associated angina: without angina Qualified Code(s): I25.10 - Atherosclerotic heart disease of [place] coronary artery without angina pectoris Code(s): I25.10 - Atherosclerotic heart disease of [place] coronary artery without angina pectoris Status: Acute [...] 3. Stress test negative for ischemia or [place]. Patient can be discharged home cardiac chew Documented By: Itzel Adams MD 07/20/22804 Signed By: <Electronically signed by MD Itzel Adams> 07/20/22805 [facility] Work Phone: 1([phone]) 406-327211-10-2022 Progress note Author Sang Bauer [facility] July 19, 2022 4:57pm Note Date/Time July 19, 2022 4:57pm [facility] [address] [place] [address] Hospitalist Progress Note Signed Patient: Taylor Mcclellan SR MR#: [id number] : 1955 Acct:[id number] Age/Sex: 66 / M Adm Date: 2 Loc: Room: [address] [place] [address] Type: ADM INOo Attending Dr: Sang Bauer [...] code Documented By: Sang Bauer MD 07/19/22 6528 Signed By: <Electronically signed by Sang Bauer MD> 07/19/22 1657 [facility] Work Phone: 1(832) 326-836511-10-2022 Progress note Author Itzel Adams [facility] July 19, 2022 8:35am Note Date/Time July 19, 2022 8:35am [facility] [address] [place] [address] Cardiology Progress Note Signed Patient: Taylor Mcclellan SR MR#: [id number] : 1955 Acct:[id number] Age/Sex: 66 / M Adm Date: 2 Loc: Room: [address] [place] [address] Type: ADM INOo Attending Dr: Sang Bauer [...] it is a single-vessel bypass done in [place] record is not available patient and his cannot remember which hospital he had his surgery at. He does not follow with cardiology Qualifiers: Coronary Disease-Associated Artery/Lesion type: [place] artery [place] vs. transplanted heart: [place] heart Associated angina: without angina Qualified Code(s): I25.10 - Atherosclerotic heart disease of [place] coronary artery without angina pectoris Code(s): I25.10 - Atherosclerotic heart disease of [place] coronary artery without angina pectoris Status: Acute [...] <Electronically signed by MD Itzel Adams> 07/19/2235 [facility] Work Phone: [phone]) 651-749611-09-2022 Progress note Author [facility] July 18, 2022 3:24pm Note Date/Time July 18, 2022 3 :24pm [facility] [address] [place] [address] Hospitalist Progress Note Signed Patient: Taylor Mcclellan MR#: [id number] : 1955 Acct:[id number] Age/Sex: 66 / M Adm Date: 2 Loc: 3T Room: [address] [place] [address] Type: ADM INOo Attending Dr: Sang Bauer [...] 25 Mg Tablet PO 07/18/23 13:59 TID [facility] Insulin Aspart 0 units 07/17/22 22:00 07/18/22 11:48 Insulin Aspart 300 Units/3 Ml Insuln.Pen SUBCUT 07/17/23 21:59 Not Given TID.WM.HS [facility] Protocol Lamotrigine 100 mg 07/18/22 12:00 07/18/22 [...] 11:15 Brexpiprazole [Rexulti] PO 07/18/23 11:14 1XD [facility] Ondansetron HCl 4 mg 07/17/22 18:33 Ondansetron [...] signed by Sang Bauer MD> 07/18/22 1524 [facility] Work Phone: [phone] 141-161211-09-2022 History and physical note Author Sang Bauer [facility] July 18, 2022 3:22pm Note Date/Time July 17, 2022 6 :41pm [facility] [address] [place] [address] Hospitalist H&P Signed Patient: Taylor Mcclellan MR#: [id number] : 1955 Acct:[id number] Age/Sex: 66 / M Adm Date: 2 Loc: 3T Room: [address] [place] [address] Type: ADM INOo Attending Dr: Sang Bauer [...] at home. Reportedly patient was taken to [facility] couple days ago when he was [...] his live in a mobile home in [place]. Meds Medications and Allergies Allergies chlordiazepoxide [From [...] 07/17/22] hydrocodone 5 mg-acetaminophen 325 mg tablet ([place]) 1 tab PO BID PRN Pain #0 [...] % (Auto) 29.5 % (.) 07/17/22 15:44 [place] % (Auto) 5.4 % (.) 07/17/22 15:44 Eos % (Auto) 0.7 % (.) 07/17/22 15:44 Baso % (Auto) 1.0 % (.) 07/17/22 15:44 Neut # (Auto) 4.9 x10E3/uL (1.8-7.7) 07/17/22 15:44 Lymph # (Auto) 2.3 x10E3/uL (1.00-4.8) 07/17/22 15:44 [place] # (Auto) 0.4 x10E3/uL (0.0-0.8) 07/17/22 15:44 [...] <Electronically signed by Sang Bauer MD> 07/18/22 0447 [facility] Work Phone: [phone] 754-534911-09-2022 Consult note Author Itzel Adams [facility] July 18, 2022 11:46am Note Date/Time July 18, 2022 1 1:43am [facility] [address] [place] [address] Cardiology Consult Note Signed Patient: Taylor Mcclellan SR MR#: [id number] : 1955 Acct:[id number] Age/Sex: 66 / M Adm Date: 2 Loc: Room: [address] [place] [address] Type: ADM INOo Attending Dr: Sang Bauer MD Copies to: MD Genesis Goetz MD Mourhaf A Traboulssi, MD~ Cardiology HPI History of Present Illness Consult Date: 07/18/22 Reason for Consult: Chest pain HPI: Mr. Mcclellan is a 66 year old male with known history of coronary artery disease and prior bypass surgery done in [place]. No records available. Patient report to have [...] his live in a mobile home in [place]. Meds Medications and Allergies Allergies chlordiazepoxide [From [...] 07/17/22] hydrocodone 5 mg-acetaminophen 325 mg tablet ([place]) 1 tab PO BID PRN Pain #0 [...] x10E3/uL Lymph # (Auto) 2.3 (1.00-4.8) x10E3/uL [place] # (Auto) 0.4 (0.0-0.8) x10E3/uL Eos # [...] @ 100 mls/hr IV ONCE ONE Rx #:[id number] Oral 0 / 0 50 / 50 [...] it is a single-vessel bypass done in [place] record is not available patient and his cannot remember which hospital he had his surgery at. He does not follow with cardiology Qualifiers: Coronary Disease-Associated Artery/Lesion type: [place] artery [place] vs. transplanted heart: [place] heart Associated angina: without angina Qualified Code(s): I25.10 - Atherosclerotic heart disease of [place] coronary artery without angina pectoris Code(s): I25.10 - Atherosclerotic heart disease of [place] coronary artery without angina pectoris (3) Hx [...] signed by MD Itzel Adams> 07/18/22 1146 [facility] Work Phone: 1(665) 829-575311-08-2022 History and physical note Author Sang Bauer [facility] July 18, 2022 3:22pm Note Date/Time July 17, 2022 6 :41pm [facility] [address] [place] [address] Hospitalist H&P Signed Patient: Taylor Mcclellan MR#: [id number] : 1955 Acct:[id number] Age/Sex: 66 / M Adm Date: 2 Loc: Room: 1E2118-7 Type: ADM INOo Attending Dr: Sang Bauer [...] at home. Reportedly patient was taken to [facility] couple days ago when he was [...] his live in a mobile home in [place]. Meds Medications and Allergies Allergies chlordiazepoxide [From [...] 07/17/22] hydrocodone 5 mg-acetaminophen 325 mg tablet ([place]) 1 tab PO BID PRN Pain #0 [...] % (Auto) 29.5 % (.) 07/17/22 15:44 [place] % (Auto) 5.4 % (.) 07/17/22 15:44 Eos % (Auto) 0.7 % (.) 07/17/22 15:44 Baso % (Auto) 1.0 % (.) 07/17/22 15:44 Neut # (Auto) 4.9 x10E3/uL (1.8-7.7) 07/17/22 15:44 Lymph # (Auto) 2.3 x10E3/uL (1.00-4.8) 07/17/22 15:44 [place] # (Auto) 0.4 x10E3/uL (0.0-0.8) 07/17/22 15:44 [...] code Documented By: Sang Bauer MD 07/17/22 8708 Signed By: <Electronically signed by Sang Bauer MD> 07/18/22 1524 [facility] Work Phone: [phone]) [phone] Consult note Author Itzel Adams [facility] July 18, 2022 11:46am Note Date/Time July 18, 2022 1 1:43am [facility] [address] [place] [address] Cardiology Consult Note Signed Patient: Taylor Mcclellan SR MR#: [id number] : 1955 Acct:[id number] Age/Sex: 66 / M Adm Date: 2 Loc: 3T Room: [address] [place] [address] Type: ADM INOo Attending Dr: Sang Bauer MD Copies to: MD Genesis Goetz MD Mourhaf A Traboulssi, MD~ Cardiology HPI History of Present Illness Consult Date: 07/18/22 Reason for Consult: Chest pain HPI: Mr. Mcclellan is a 66 year old male with known history of coronary artery disease and prior bypass surgery done in [place]. No records available. Patient report to have [...] his live in a mobile home in [place]. Meds Medications and Allergies Allergies chlordiazepoxide [From [...] 07/17/22] hydrocodone 5 mg-acetaminophen 325 mg tablet ([place]) 1 tab PO BID PRN Pain #0 [...] x10E3/uL Lymph # (Auto) 2.3 (1.00-4.8) x10E3/uL [place] # (Auto) 0.4 (0.0-0.8) x10E3/uL Eos # [...] @ 100 mls/hr IV ONCE ONE Rx #:[id number] Oral 0 / 0 50 / 50 [...] it is a single-vessel bypass done in [place] record is not available patient and his cannot remember which hospital he had his surgery at. He does not follow with cardiology Qualifiers: Coronary Disease-Associated Artery/Lesion type: [place] artery [place] vs. transplanted heart: [place] heart Associated angina: without angina Qualified Code(s): I25.10 - Atherosclerotic heart disease of [place] coronary artery without angina pectoris Code(s): I25.10 - Atherosclerotic heart disease of [place] coronary artery without angina pectoris (3) Hx [...] signed by MD Itzel Adams> 07/18/22 1146 [facility] Work Phone: Discharge summary Author Sang Bauer [facility] July 20, 2022 6:39pm Note Date/Time July 20, 2022 3:04pm [facility] [address] [place] [address] Discharge Summary Signed Patient: Taylor Mcclellan MR#: [id number] : 1955 Acct:[id number] Age/Sex: 66 / M Adm Date: 2 Loc: Room: [address] [place] [address]: Sang Bauer MD Copies to: [...] Discharge Plan Discharge Plan Patient Disposition: Senior Living Facility Activity: No Activity Restriction Diet: Low-Sodium [...] tablet 75 mg PO DAILY Discontinued hydrocodone-acetaminophen [[place]] 5-325 mg tablet 1 tab PO BID PRN (Reason: Pain) Qty: 0 0RF Other Ambulatory Orders: DME Home Medical Equipment (Routine) Timeframe: 20220720 Location: Determined by Patient Ordered By: Sang Bauer Follow Up: Lilia Hopper APRN [Nurse Practitioner] - 08/22/22 10:30 am Documented By: Sang Bauer MD 07/20/22 1504 Signed By: <Electronically signed by Sang Bauer MD> 07/20/22 0358 [facility] Work Phone: Evaluation note* Diagnosis Onset Date Resolution Status Chest pain acute Coronary artery disease acut e Generalized weakness acute Hx of CABG acute Diabetes mellitus chronic HTN (hypertension) chronic [facility] Work Phone: Evaluation note* Diagnosis Onset Date Resolution Status Bipolar 1 disorder, depressed, severe acute Chest pain acute Coronary artery disease acut e Generalized weakness acute Hx of CABG acute Chronic back pain chronic Diabetes mellitus chronic HTN (hypertension) chronic [facility] Work Phone: Evaluation noteNo assessment information available [facility] Work Phone: evaluation noteNo InformationNortGeising[facility] Other Evaluation note* Diagnosis Primary hypertension (CMS/HCC)- [...] Surgical History CABG Hospitalization History see above [employer] Other Hospital Discharge instructions Additional Instructions SNF TO MANAGE: PT/OT to eval and treat Monitor VS per protocol--HTN Monitor FSBS Maintain high risk fall precautions Care to be managed by [facility] Work Phone: Progress note Author Sang Bauer [facility] July 18, 2022 3:24pm Note Date/Time July 18, 2022 3 :24pm [facility] [address] [place] [address] Hospitalist Progress Note Signed Patient: Taylor Mcclellan MR#: [id number] : 1955 Acct:[id number] Age/Sex: 66 / M Adm Date: 2 Loc: 3T Room: [address] [place] [address] Type: ADM INOo Attending Dr: Sang Bauer [...] Insuln.Pen SUBCUT 07/17/23 21:59 Not Given TID.WM.HS [facility] Protocol Lamotrigine 100 mg 07/18/22 12:00 07/18/22 [...] signed by Sang Bauer MD> 07/18/22 1524 [facility] Work Phone: Progress note Author Itzel Adams [facility] July 19, 2022 8:35am Note Date/Time July 19, 2022 8:35am [facility] [address] [place] [address] Cardiology Progress Note Signed Patient: Taylor Mcclellan MR#: [id number] : 1955 Acct:[id number] Age/Sex: 66 / M Adm Date: 2 Loc: Room: [address] [place] [address] Type: ADM INOo Attending Dr: Sang Bauer [...] it is a single-vessel bypass done in [place] record is not available patient and his cannot remember which hospital he had his surgery at. He does not follow with cardiology Qualifiers: Coronary Disease-Associated Artery/Lesion type: [place] artery [place] vs. transplanted heart: [place] heart Associated angina: without angina Qualified Code(s): I25.10 - Atherosclerotic heart disease of [place] coronary artery without angina pectoris Code(s): I25.10 - Atherosclerotic heart disease of [place] coronary artery without angina pectoris Status: Acute [...] <Electronically signed by MD Itzel Adams> 07/19/22834 [facility] Work Phone: Progress note Author Sang Bauer [facility] July 19, 2022 4:57pm Note Date/Time July 19, 2022 4:57pm [facility] [address] [place] [address] Hospitalist Progress Note Signed Patient: Taylor Mcclellan MR#: [id number] : 1955 Acct:[id number] Age/Sex: 66 / M Adm Date: 2 Loc: Room: [address] [place] [address] Type: ADM INOo Attending Dr: Sang Bauer [...] Insuln.Pen SUBCUT 07/17/23 21:59 Not Given TID.WM.HS [facility] Protocol Lamotrigine 100 mg 07/18/22 12:00 07/19/22 09:10 Lamotrigine 100 Mg Tablet PO 07/18/23 11:59 100 mg DAILY AMSIHA Administration Lisinopril 10 mg 07/18/22 12:00 07/19/22 [...] <Electronically signed by Sang Bauer MD> 07/19/221656 [facility] Work Phone: Progress note Author Itzel Adams [facility] July 20, 2022 8:06am Note Date/Time July 20, 2022 8:06am [facility] [address] [place] [address] Cardiology Progress Note Signed Patient: Taylor Mcclellan SR MR#: [id number] : 1955 Acct:[id number] Age/Sex: 66 / M Adm Date: 2 Loc: Room: [address] [place] [address] Type: ADM INOo Attending Dr: Sang Bauer [...] it is a single-vessel bypass done in [place] record is not available patient and his cannot remember which hospital he had his surgery at. He does not follow with cardiology Qualifiers: Coronary Disease-Associated Artery/Lesion type: [place] artery [place] vs. transplanted heart: [place] heart Associated angina: without angina Qualified Code(s): I25.10 - Atherosclerotic heart disease of [place] coronary artery without angina pectoris Code(s): I25.10 - Atherosclerotic heart disease of [place] coronary artery without angina pectoris Status: Acute [...] 3. Stress test negative for ischemia or [place]. Patient can be discharged home cardiac chew Documented By: Itzel Admas MD 07/20/22 0805 Signed By: <Electronically signed by MD Itzel Adams> 07/20/22 0806 [facility] Work Phone: Summary Purpose [...] section and content) DATE CREATED AUTHOR 10/15/2019 [facility] DATE CREATED AUTHOR AUTHOR'S ORGANIZ ATION 11/29/2021 [facility] DATE CREATED AUTHOR AUTHOR'S ORGANIZ ATION 01/21/2023 [facility] DATE CREATED AUTHOR AUTHOR'S ORGANIZ ATION 01/23/2023 [facility] DATE CREATED AUTHOR AUTHOR'S ORGANIZ ATION 08/18/2023 [facility] DATE CREATED AUTHOR AUTHOR'S ORGANIZ ATION 11/11/2023 [facility] DATE CREATED AUTHOR AUTHOR'S ORGANIZ ATION 03/30/2024 [facility] DATE CREATED AUTHOR AUTHOR'S ORGANIZ ATION 05/06/2024 [facility] Ambulatory [facility] Care Teams (unrecognized sec tion [...] MD Other Provider Active Pily Winslow , [facility]- Other Provider Active Adelaide Leonardo [...] Active Benson Lane MD Attending Provider Active Specialties Operator Relationship Specialty Start Date End Date Bro Sanford MD PCP - General Family Medicine 12/26/16 Specialties Operator Relationship Specialty Start Date End Date Ebenezer Hopkins MD [address] [facility] [place] [address] PCP - General Psychiatry 04/26/23 Goals (unrecognized [...] BE BASED ON THE PRIMARY CLINICAL RECORDS. [facility] [employer] [facility]. provides no warranty or guarantee of the accuracy or completeness of information in this document.
[2024-09-10] MEDS: 0.9 % SODIUM CHLORIDE 250 ML 10 ML IV (08:44)
--- NOTE | 2024-09-10 09:08 | P.HP_ITS ---
HPI H&P: HPI History of Present Illness Chief complaint: PATRICIO,CKD,COVID19,FALL,GEN. WEAKNESS,DEHYDRATION Narrative: Patient is staying at the assisted living, where COVID is very active, patient started having increasing cough and fall, found to have acute COVID-19 with hypoxia is admitted for workup and treatment of same When I saw patient up on the medical surgical floor, resting comfortably in bed awakens easily answers questions appropriately, only concern from his his back pain which is a long-term issue for him, does have some shortness of breath but patient not active Opioid HPI Opioid Management Most Recent Pain and Opioid Data: Last Pain Scale 6 05/04/24 13:00 05/04/24 Last Pain Intensity 0 04/30/24 09:44 04/30/24 Last Pain Assessment 09/10/24 10:00 Last ORT Total Score 0 09/10/24 02:58 09/10/24 Last ORT Risk Category Low Risk 09/10/24 02:58 09/10/24 Ur Phencyclidine Scrn Negative (NEGATIVE) 11/05/23 16:26 10/11 04/01 Review of Systems ROS Status of ROS 10 or more systems reviewed and unremark able except as noted in history and below [facility] Medical History (Updated 09/10/24 @ 01:44 by Jeet Pina MD) Seizure disorder ?G40.909 - Epilepsy, unspecified, not intractable, without status epilepticus (ICD-10) Altered mental status ?R41.82 - Altered mental status, unspecified (ICD-10) Weakness ?R53.1 - Weakness (ICD-10) Ambulatory dysfunction ?R26.2 - Difficulty in walking, not elsewhere classified (ICD-10) Fall ?W19.XXXA - Unspecified fall, initial encounter (ICD-10) Chronic low back pain with bilateral sciatica ?M54.41 - Lumbago with sciatica, right side (ICD-10) ?M54.42 - Lumbago with sciatica, left side (ICD-10) ?G89.29 - Other chronic pain (ICD-10) Altered mental status ?R41.82 - Altered mental status, unspecified (ICD-10) Chronic back pain ?M54.9 - Dorsalgia, unspecified (ICD-10) ?G89.29 - Other chronic pain (ICD-10) Orthostatic dizziness ?R42 - Dizziness and giddiness (ICD-10) Accidental fall ?W19.XXXA - Unspecified fall, initial encounter (ICD-10) CAD (coronary artery disease) ?I25.10 - Atherosclerotic heart disease of [place] coronary artery without angina pectoris (ICD-10) Back pain ?M54.9 - Dorsalgia, unspecified (ICD-10) 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 - Fusion of spine, lumbar region (ICD-10) High cholesterol ?E78.00 - Pure hypercholesterolemia, unspecified (ICD-10) Hypertension ?I10 - Essential (primary) hypertension (ICD-10) IDDM (insulin dependent diabetes mellitus) Restless leg syndrome ?G25.81 - Restless legs syndrome (ICD-10) Suicidal ideation ?R45.851 - Suicidal ideations (ICD-10) Sleep apnea ?G47.30 - Sleep apnea, unspecified (ICD-10) Anxiety ?F41.9 - Anxiety disorder, unspecified (ICD-10) Metabolic encephalopathy ?G93.41 - Metabolic encephalopathy (ICD-10) Depression ?F32.A - Depression, unspecified (ICD-10) Acute renal failure ?N17.9 - Acute kidney failure, unspecified (ICD-10) Altered mental status ?R41.82 - Altered mental status, unspecified (ICD-10) Surgical History S/P CABG (coronary artery bypass graft) ?Z95.1 - Presence of aortocoronary bypass graft (ICD-10) History of heart artery stent ?Z95.5 - Presence of coronary angioplasty implant and graft (ICD-10) Family History Mother Family history of myocardial infarction Social History (Updated 09/10/24 @ 03:09 by Hailey Bustamante) Within the past year, how often did you have a drink containing alcohol: never Score interpretation: A score less than 4 is consistent with normal alcohol consumption. 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 Known occupational exposures/hazards: No Highest level of school completed/degree received: high school graduate Do you want help with school or training: No Are you now , , , , never or living with a partner: In a typical week, how many times do you talk on the telephone with family, friends, or neighbors: never How often do you get together with friends or relatives: never How often do you attend anabaptist or moravian services: never Do you belong to any clubs or organizations such as anabaptist groups unions, fraternal or athletic groups, or school groups: no Total score: 1 Score interpretation: A score of less than or equal to 1 indicates the most socially isolated. Little interest or pleasure in doing things: nearly every day Feeling down, depressed, or hopeless: several days Feel stressed/tense/nervous/anxious/difficulty sleeping: very much Life stressors: recent of family or friend Life stressor details: mother and step father a year ago Due to disability, difficulty making decisions: No Do you think of yourself as: straight/heterosexual Gender Identity: male Meds Home Medications and Allergies Home Medications ?Medication ?Instructions ?Recorded ?Confirmed ?Type carvedilol 12.5 mg tablet (Coreg) 12.5 mg PO BID 03/14/23 09/10/24 History clopidogrel 75 mg tablet 75 mg PO QDAY 03/14/23 09/10/24 History celecoxib 200 mg capsule 200 mg PO DAILY #30 caps 03/15/23 09/10/24 Rx mirtazapine 45 mg tablet 45 mg PO .QHS 11/05/23 09/10/24 History cyclobenzaprine 10 mg tablet 10 mg PO TID 04/14/24 09/10/24 History divalproex 500 mg tablet,delayed 500 mg PO Q12H 04/14/24 09/10/24 History release ezetimibe 10 mg tablet 10 mg PO .qhs 04/14/24 09/10/24 History famotidine 40 mg tablet 40 mg PO DAILY 04/14/24 09/10/24 History gabapentin 600 mg tablet 600 mg PO QID 04/14/24 09/10/24 History tamsulosin 0.4 mg capsule 0.4 mg PO .qhs 04/14/24 09/10/24 History tramadol 50 mg tablet 100 mg PO QID PRN pain 04/14/24 09/10/24 History acetaminophen 500 mg capsule 500 mg PO TID 05/03/24 09/10/24 History docusate sodium 100 mg capsule 100 mg PO .qod 05/03/24 09/10/24 History multivitamin with folic acid 1 tab PO DAILY 05/03/24 09/10/24 History aspirin 81 mg tablet,delayed 81 mg PO DAILY 05/21/24 09/10/24 History release atorvastatin 80 mg tablet 80 mg PO DAILY 05/21/24 09/10/24 History primidone 50 mg tablet 50 mg PO DAILY 05/21/24 09/10/24 History triamcinolone acetonide 0.1 % 1 applic topical BID PRN rash 05/21/24 09/10/24 History topical cream losartan 50 mg tablet 50 mg PO DAILY 09/10/24 09/10/24 History nicotine 21 mg/24 hr daily 1 patch transdermal Q24H 09/10/24 09/10/24 History transdermal patch nicotine 7 mg/24 hr daily 1 patch transdermal Q24H 09/10/24 09/10/24 History transdermal patch Allergies Allergy/AdvReac Type Severity Reaction Status Date / Time amitriptyline Allergy Unknown Verified 09/10/24 03:10 citalopram Allergy Unknown Verified 09/10/24 03:10 fentanyl Allergy Unknown Verified 09/10/24 03:10 simvastatin (From Zocor) Allergy Unknown Verified 09/10/24 03:10 succinylcholine Allergy Unknown Verified 09/10/24 03:10 venlafaxine (From Effexor) Allergy Unknown Verified 09/10/24 03:10 Exam Constitutional Vital Signs, click to edit/add: Last Vital Signs Temp 98 F 09/10/24 08:00 Pulse 95 H 09/10/24 08:00 Resp 20 09/10/24 08:00 BP 128/79 09/10/24 08:00 Pulse Ox 96 09/10/24 08:00 O2 Del Method Nasal Cannula 09/10/24 08:00 O2 Flow Rate 2 09/10/24 08:00 Documenting provider has reviewed patient's vital signs: yes Common normals: apparent distress (Minimal conversational dyspnea) Respiratory Common normals: abnormal respiratory effort (Minimal conversational dyspnea) Auscultation: rhonchi and diminished lung sounds Cardio Common normals: regular rate and regular rhythm GI Common normals: Normal to inspection, nondistended, normoactive bowel sounds present Extremity Common normals: normal to inspection Results Labs Labs: Short CBC 09/09/24 09/10/24 Range/Units 23:35 05:18 WBC 6.9 5.4 (4.0-11.0) 10^3/uL Hgb 12.5 L 12.4 L (14.0-18.0) g/dL Hct 38.6 L 38.8 L (42.0-54.0) % Plt Count 181 175 (150-450) 10^3/uL BMP 09/09/24 09/10/24 23:35 05:18 Sodium 142 144 Potassium 4.5 4.3 Chloride 106 108 H Carbon Dioxide 27.3 28.3 BUN 28.0 H 26.0 H Creatinine 1.60 H 1.39 H Glucose 143 H 118 H Calcium 8.7 8.4 L Liver Function 09/09/24 09/10/24 Range/Units 23:35 05:18 Total Bilirubin 0.3 0.3 (0.2-1.0) mg/dL AST 35 38 H (15-37) U/L ALT 38 39 (16-63) U/L Alkaline Phosphatase 48 46 (46-116) U/L Albumin 3.2 L 3.1 L (3.4-5.0) g/dL Assessment and Plan Assessment and Plan (1) Pneumonia: Qualifiers: Laterality: left Lung location: lower lobe of lung Pneumonia type: due to unspecified organism Qualified Code(s): J18.9 - Pneumonia, unspecified organism (2) Generalized weakness: (3) COVID-19: Plan Admission findings: Sinus tachycardia, respiratory distress, uncontrolled hypertension, acute hypoxia with O2 sat of 89% on 3 L, positive acute COVID-19, CT scan consistent with bilateral pulmonary infiltrates consistent with COVID-19 pneumonia. Acute hypoxia secondary to acute COVID-19 pneumonia-remdesivir, steroids, antibi otics to cover possible nosocomial infection. Acute kidney injury-baseline creatinine of 0.91, creatinine on admission of 1.6 at the 175.8% above baseline with decreased urine output over the last 12 hours with segments acute kidney injury stage 2 -will watch his oral intake, hold off on IV fluids secondary to the COVID-19 and prefer to keep him on the dry side Lumbar compression fractures these were not new, had these in the past-pain control Hypertension-continue with home medications Hypercholesterolemia continue with home medications GERD continue with home medications Hyperglycemia on admission-this is likely secondary to stress from [id number] Admission status: Patient with acute hypoxia and acute COVID-19 pneumonia, medically necessary treatment will span 2 midnights. Inpatient status
[2024-09-10] MEDS: MULTIVITAMIN TABLET 1 TAB PO (09:37)
[2024-09-10] MEDS: REMDESIVIR 200 MG in 0.9 % SODIUM CHLORIDE 250 ML 250 MG IV (09:37)
[2024-09-10] MEDS: ASPIRIN 81 MG TABLET.DR PO (09:37)
[2024-09-10] MEDS: CELECOXIB 200 MG CAPSULE PO (09:37)
[2024-09-10] MEDS: ATORVASTATIN CALCIUM 40 MG TABLET 80 MG PO (09:37)
[2024-09-10] MEDS: CARVEDILOL 12.5 MG TABLET PO ×2 (09:37→22:56)
[2024-09-10] MEDS: PRIMIDONE 50 MG TABLET PO (09:37)
[2024-09-10] MEDS: DEXAMETHASONE SOD PHOS 10 MG/ML VIAL 6 MG IV (09:37)
[2024-09-10] MEDS: FAMOTIDINE 20 MG TABLET 40 MG PO (09:37)
[2024-09-10] MEDS: LOSARTAN POTASSIUM 50 MG TABLET PO (09:37)
[2024-09-10] MEDS: CLOPIDOGREL BISULFATE 75 MG TABLET PO (09:41)
--- NOTE | 2024-09-10 09:49 | CM.NOTE ---
Rounds made with Dr. Jiang, pt continues to require oxygen. Attempt to wean off oxygen today and possible discharge tomorrow.
--- NOTE | 2024-09-10 10:12 | SWNOTE1 ---
SW spoke to case management and pt is from a facility. SW spoke to Elisa at [facility] and pt is from [facility]. If pt needs SNF they do not have any beds available.
[2024-09-10] MEDS: ALBUTEROL SULFATE 200 PUFF/6.7 GM INHALER IH ×3 (11:05→22:08)
[2024-09-10] MEDS: ENOXAPARIN SODIUM 60 MG/0.6 ML SYRINGE SUBQ (11:07)
[2024-09-10] MEDS: LEVOFLOXACIN IN DEXTROSE 5 % 750 MG/150 ML PREMIX 100 MG IV (11:07)
[2024-09-10] MEDS: GABAPENTIN 300 MG CAPSULE 600 MG PO (11:08)
[2024-09-10] MEDS: DOCUSATE SODIUM 100 MG CAPSULE PO (11:08)
[2024-09-10] MEDS: DIVALPROEX SODIUM 500 MG TABLET.DR PO (11:08)
--- NOTE | 2024-09-10 11:34 | SWNOTE1 ---
ISABELLA called and confirmed that pt is from [facility], SW spoke to nurse at and pt is from there. She stated pt is getting therapy at [facility].
[2024-09-10] MEDS: CYCLOBENZAPRINE HCL 10 MG TABLET PO (13:15)
[2024-09-10] MEDS: PIPERACILLIN SODIUM/TAZOBACTAM 3.375 GM in 0.9 % SODIUM CHLORIDE 50 ML IV ×2 (13:15→22:55)
[2024-09-10] MEDS: ACETAMINOPHEN 500 MG TABLET PO ×2 (13:15→22:56)
--- NOTE | 2024-09-10 14:35 | SWNOTE1 ---
SW met with pt to discuss dc needs. Pt lives at [facility] with his . They are in the same room. SW asked pt how he was feeling and he did voice better. Pt voiced he does use a walker at [facility] at all times. SW asked permission to call his son, Eliu. Pt is alright with this, SW to review IMM with pt's son. SW called Eliu and spoke with him over the phone. Important Message from Medicare reviewed and discussed with patient's son over the phone. Pt's son verbalized understanding and SW signed the form that it was reviewed. Original placed in pt's room and copy placed in patient?s chart. Pt's son voiced he was doing alright at [facility]. He stated pt's bosses him around and tells him he does not have to use the walker and that he does not need to wear a brief. He stated overall pt has been in a good place mentally. Pt and his have Dementia, 's is worse. Pt's son stated that the AL told him if he has another fall he will have to go to correction permanently. He voiced that this fall was in the bedroom so it was a little different. Pt's son did ask how he was doing medically. SW did tell him that he was on oxygen at this time and goal was to wean him down. At this time SW advised we are having therapy evaluate him and try to wean pt off oxygen. Pt's son voiced understanding and no further questions. Plan is for pt to return to [facility]. SW reviewed therapy notes. PT recommended return to facility, but from reviewing note it was thought pt was from [facility] alf and he is from [place]. SW reviewed OT note and SNF was recommended. SW called pt's son and let him know rehab was recommended at this time. SW advised pt's son that [facility] is full right now and have no beds. He voiced understanding. SW also let son know that Medicare requires a 3 night inpatient stay for Medicare to pay. He stated if Medicare does not pay, they do not have the funds to pay out of pocket. ISABELLA advised Eliu that we can have a plan A and plan B. Plan A is rehab at facility and plan B is return to [facility] if pt does not need 3 day inpt stay. Eliu in agreement. ISABELLA and Eliu spoke about facility and he has been to [facility] in past, but would like to keep him closer. Eliu asked about the [facility]. SW to reach out to [facility] and send referral. Referral sent to [facility]. Referral included face sheet, ED note, H&P, provider notes, case management report, nursing notes, diagnostic imaging, med list, and PT/OT notes.
[2024-09-10 20:00] LABS: A. calcoaceticus-baumannii Cpx NOT DETECTED (NOT DETECTE); Bacteroides fragilis NOT DETECTED (NOT DETECTE); Candida albicans NOT DETECTED (NOT DETECTE); Candida auris NOT DETECTED (NOT DETECTE); Candida glabrata NOT DETECTED (NOT DETECTE); Candida krusei NOT DETECTED (NOT DETECTE); Candida parapsilosis NOT DETECTED (NOT DETECTE); Candida tropicalis NOT DETECTED (NOT DETECTE); Cryptococcus neoformans/gattii NOT DETECTED (NOT DETECTE); Enterobacter cloacae complex NOT DETECTED (NOT DETECTE); Enterobacterales NOT DETECTED (NOT DETECTE); Enterococcus faecalis NOT DETECTED (NOT DETECTE); Enterococcus faecium NOT DETECTED (NOT DETECTE); Haemophilus influenzae NOT DETECTED (NOT DETECTE); Klebsiella aerogenes NOT DETECTED (NOT DETECTE); Klebsiella pneumoniae group NOT DETECTED (NOT DETECTE); Listeria monocytogenes NOT DETECTED (NOT DETECTE); Neisseria meningitidis NOT DETECTED (NOT DETECTE); Proteus spp. NOT DETECTED (NOT DETECTE); Pseudomonas aeruginosa NOT DETECTED (NOT DETECTE); Salmonella spp. NOT DETECTED (NOT DETECTE); Serratia marcescens NOT DETECTED (NOT DETECTE); Staphylococcus lugdunensis NOT DETECTED (NOT DETECTE); Stenotrophomonas maltophilia NOT DETECTED (NOT DETECTE); Streptococcus agalactiae NOT DETECTED (NOT DETECTE); Streptococcus pneumoniae NOT DETECTED (NOT DETECTE); Streptococcus pyogenes NOT DETECTED (NOT DETECTE); Streptococcus spp. NOT DETECTED (NOT DETECTE)
--- NOTE | 2024-09-10 22:15 | RESP.RT ---
Titrated to 2 LPM
[2024-09-10] MEDS: EZETIMIBE 10 MG TABLET PO (22:55)
[2024-09-10] MEDS: CETIRIZINE HCL 10 MG TABLET 20 MG PO (22:56)
[2024-09-10] MEDS: TAMSULOSIN HCL 0.4 MG CAPSULE PO (22:56)
[2024-09-10] MEDS: MIRTAZAPINE 15 MG TABLET 45 MG PO (22:58)
[2024-09-10 23:15] LABS: Source BLOOD; Staphylococcus epidermidis DETECTED (NOT DETECTE); Staphylococcus spp. DETECTED (NOT DETECTE); mecA/C DETECTED (NOT DETECTE)
[2024-09-11] VITALS (23 sets, daily range): BP systolic 106–136; BP diastolic 65–88; PULSE 60–88; TEMP 36.4–36.8; O2SAT 91–98
[2024-09-11 05:03] LABS: BOX Test Reference Lab FRMC; BOX Test Sent Out BLOOD CULTURE
[2024-09-11] MEDS: ALBUTEROL SULFATE 200 PUFF/6.7 GM INHALER IH ×4 (05:09→23:40)
[2024-09-11] MEDS: PIPERACILLIN SODIUM/TAZOBACTAM 3.375 GM in 0.9 % SODIUM CHLORIDE 50 ML IV ×3 (05:46→21:20)
[2024-09-11 05:59] LABS: Basophils Percent Auto 0.3 % (0.2-2.0); Hematocrit 34.8 % (42.0-54.0); Hemoglobin 11.5 g/dL (14.0-18.0); Immature Granulocytes Abs Auto 0.01 10^3/uL (0.00-0.03); Immature Granulocytes Pct Auto 0.3 % (0.0-0.5); Lymphocytes Absolute Auto 1.1 10^3/uL (1.2-3.8); Lymphocytes Percent Auto 28.7 % (20.5-60.0); Mean Corpuscular Hemoglobin 30.9 pg (25.9-34.0); Mean Corpuscular Volume 93.5 fL (80.0-94.0); Mean Platelet Volume 11.6 fL (9.5-13.5); Monocytes Absolute Auto 0.4 10^3/uL (0.3-0.8); Monocytes Percent Auto 11.5 % (1.7-12.0); Neutrophils Absolute Auto 2.2 10^3/uL (1.4-6.5); Neutrophils Percent Auto 59.2 % (43.0-75.0); Platelet Count 157 10^3/uL (150-450); Red Blood Count 3.72 10^6/uL (4.70-6.10); Red Cell Distribution Width 13.2 % (11.0-15.0); White Blood Count 3.7 10^3/uL (4.0-11.0)
[2024-09-11 06:13] LABS: Anion Gap 13.4; BUN Creatinine Ratio 27.9; Calcium 8.2 mg/dL (8.5-10.1); Carbon Dioxide 25.8 mmol/L (21.0-32.0); Chloride 108 mmol/L (98-107); Estimated GFR (African America >60 (>=60 mL/min/1.73m^2); Estimated GFR (Non-African Ame 59 (>=60 mL/min/1.73m^2); Glucose 131 mg/dL (74-106); Potassium 4.2 mmol/L (3.5-5.1); Sodium 143 mmol/L (136-145)
[2024-09-11] MEDS: ENOXAPARIN SODIUM 60 MG/0.6 ML SYRINGE SUBQ (08:12)
[2024-09-11] MEDS: ATORVASTATIN CALCIUM 40 MG TABLET 80 MG PO (08:12)
[2024-09-11] MEDS: REMDESIVIR 100 MG in 0.9 % SODIUM CHLORIDE 100 ML 200 MG IV (08:12)
[2024-09-11] MEDS: CARVEDILOL 12.5 MG TABLET PO ×2 (08:12→21:21)
[2024-09-11] MEDS: ASPIRIN 81 MG TABLET.DR PO (08:13)
[2024-09-11] MEDS: LOSARTAN POTASSIUM 50 MG TABLET PO (08:13)
[2024-09-11] MEDS: PRIMIDONE 50 MG TABLET PO (08:13)
[2024-09-11] MEDS: CELECOXIB 200 MG CAPSULE PO (08:13)
[2024-09-11] MEDS: CLOPIDOGREL BISULFATE 75 MG TABLET PO (08:13)
[2024-09-11] MEDS: DEXAMETHASONE SOD PHOS 10 MG/ML VIAL 6 MG IV (08:13)
[2024-09-11] MEDS: MULTIVITAMIN TABLET 1 TAB PO (08:13)
[2024-09-11] MEDS: FAMOTIDINE 20 MG TABLET 40 MG PO (08:13)
[2024-09-11] MEDS: DIVALPROEX SODIUM 500 MG TABLET.DR PO ×2 (08:15→21:23)
--- NOTE | 2024-09-11 09:25 | CM.NOTE ---
Rounds made with Dr. Jiang. Dr. Jiang discussed labs and treatment plan. Discharge plan is for patient to go to SNF at discharge. Referral was made to [facility]. No plan for discharge today.
[2024-09-11] MEDS: LEVOFLOXACIN IN DEXTROSE 5 % 750 MG/150 ML PREMIX 100 MG IV (09:49)
--- NOTE | 2024-09-11 10:19 | PT.DAILY ---
Physical Therapy Daily Note PT Daily Note/Assess Start: 09/10/24 10:50 Freq: Status: Active Protocol: Document 09/11/24 10:09 MARIBETH (Rec: 09/11/24 10:19 MARIBETH [id number]) Physical Therapy Daily Note/Assessment Time In/Time Out Time In 09:35 Time Out 09:48 Pain In Pain N/A Pain Out Pain N/A Subjective Subjective Pt supine upon arrival. Pt is agreeable to PT. Reports some tailbone pain but does not rate this pain. Therapeutic Exercise Time Therapeutic Exercise 4 Minutes (minutes) Therapeutic Exercise 0 Units Therapeutic Exercise Treatment Therapeutic Exercise Pt completes bilat LE strengthening ex while sitting at Treatment EOB unsupported. Good seated balance noticed. Standing marches and hip flexion at RW SBA. SPO2 89% with this on 2L O2. Therapeutic Activity Time Therapeutic Activity 8 Minutes (minutes) Therapeutic Activity 1 Units Therapeutic Activity Treatment Bed Mobility Ability Standby Assistance Chair Transfer Contact Guard Assist Ability Therapeutic Activity Supine>sit SBA with increased time needed. Pt sits EOB Comments for 4 min to complete bilat seated ex unsupported without LOB. Pts SPO2 drops to 89% with ther ex. Sit> stand 5x from EOB to RW CGA for safety. No LOB with this. Pt amb 40' in room with RW, SBA with assist for O2 lines and IV lines. Spo2 drops to 87% with amb. Steady with gait using RW. Slow with turns to sit in BS chair. Pt remains in BS chair upon completion with call light within reach and chair alarm activated. Total Physical Therapy Time Total Therapy 12 Minutes Total Physical 1 Therapy Units Summary Daily Note Summary Improved gait and transfer ability. Steady using RW but does require assistance for IV and O2 lines. Spo2 drops to 87% with amb.
--- NOTE | 2024-09-11 10:42 | P.PN_ITS ---
Progress Note: Subjective Subjective Interval history: Patient sleeping but awakens very easily, no complaints, denied pain but I did not ask either, no conversational dyspnea today, does have some cough during the evaluation Exam Constitutional Vital Signs, click to edit/add: Last Vital Signs Temp 97.9 F 09/11/24 08:26 Pulse 66 09/11/24 09:55 Resp 18 09/11/24 08:26 BP 108/68 09/11/24 08:26 Pulse Ox 95 09/11/24 10:21 O2 Del Method Nasal Cannula 09/11/24 10:21 O2 Flow Rate 0.5 09/11/24 10:21 Documenting provider has reviewed patient's vital signs: yes Common normals: apparent distress (Minimal conversational dyspnea) Respiratory Common normals: normal respiratory effort (Dyspnea appears resolved) Auscultation: rhonchi (Persisting) and diminished lung sounds Cardio Common normals: regular rate and regular rhythm GI Common normals: Normal to inspection, nondistended, normoactive bowel sounds present Extremity Common normals: normal to inspection Progress Note: Objective Labs Labs: Short CBC 09/11/24 Range/Units 05:26 WBC 3.7 L (4.0-11.0) 10^3/uL Hgb 11.5 L (14.0-18.0) g/dL Hct 34.8 L (42.0-54.0) % Plt Count 157 (150-450) 10^3/uL BMP 09/11/24 05:26 Sodium 143 Potassium 4.2 Chloride 108 H Carbon Dioxide 25.8 BUN 34.0 H Creatinine 1.22 Glucose 131 H Calcium 8.2 L Progress Note: A&P Assessment and Plan (1) Pneumonia: Qualifiers: Laterality: left Lung location: lower lobe of lung Pneumonia type: due to unspecified organism Qualified Code(s): J18.9 - Pneumonia, unspecified organism (2) Generalized weakness: (3) COVID-19: Plan Admission findings: Sinus tachycardia, respiratory distress, uncontrolled h ypertension, acute hypoxia with O2 sat of 89% on 3 L, positive acute COVID-19, CT scan consistent with bilateral pulmonary infiltrates consistent with COVID-19 pneumonia. Acute hypoxia secondary to acute COVID-19 pneumonia-remdesivir, steroids, antibiotics to cover possible nosocomial infection.-Continue current treatment plan overall patient appears to be improving Acute kidney injury-baseline creatinine of 0.91, creatinine on admission of 1.6 at the 175.8% above baseline with decreased urine output over the last 12 hours with segments acute kidney injury stage 2 -will watch his oral intake, hold off on IV fluids secondary to the COVID-19 and prefer to keep him on the dry side, slightly improved today Abnormal blood culture-positive for staph but looks like it is staph epi, patient on antibiotics Lumbar compression fractures these were not new, had these in the past-pain control Hypertension-continue with home medications Hypercholesterolemia continue with home medications GERD continue with home medications Hyperglycemia on admission-this is likely secondary to stress from [id number] Admission status: Patient with acute hypoxia and acute COVID-19 pneumonia, medically necessary treatment will span 2 midnights. Inpatient status ?
--- NOTE | 2024-09-11 10:48 | SWNOTE1 ---
ISABELLA reached out to Araseli at [facility] to see if they would want him to return to [place] if he is doing well enough. ISABELLA sent Araseli PT note. Waiting to hear back.
[2024-09-11] MEDS: GABAPENTIN 300 MG CAPSULE 600 MG PO ×2 (12:11→21:21)
--- NOTE | 2024-09-11 13:18 | SWNOTE1 ---
ISABELLA spoke to Araseli and they feel pt would do best at rehab for a short time. ISABELLA spoke to [facility] and they have no bed for him. ISABELLA called pt's son Eliu and he voiced the closest faciltiy would be great, except for [facility]. ISABELLA called [place] [facility] since pt was there before, waiting addiction therapist back. Elisa from [facility] called and they were able to move rooms around and have a bed for patient. ISABELLA spoke to pt's son Eliu and he is on board with pt going to [facility] for rehab. SW to let pt know. Pt is going to [facility] at discharge for rehab.
--- NOTE | 2024-09-11 13:21 | SWNOTE1 ---
Referral sent to [facility]. Referral included face sheet, ED note, H&P, provider notes, case management report, wound consult, nursing notes, diagnostic imaging, med list, and PT/OT notes.
[2024-09-11] MEDS: ACETAMINOPHEN 500 MG TABLET PO ×2 (14:10→21:21)
--- NOTE | 2024-09-11 15:31 | SWNOTE1 ---
[facility] has accepted and will be ready for pt once pt is medically stable for discharge. SW took packet to the floor and completed HENS online.
[2024-09-11] MEDS: EZETIMIBE 10 MG TABLET PO (21:21)
[2024-09-11] MEDS: TAMSULOSIN HCL 0.4 MG CAPSULE PO (21:21)
[2024-09-11] MEDS: MIRTAZAPINE 15 MG TABLET 45 MG PO (21:21)
[2024-09-11] MEDS: CETIRIZINE HCL 10 MG TABLET 20 MG PO (21:21)
[2024-09-11] MEDS: TRIAMCINOLONE ACETONIDE 0.1% CREAM 15 GM TUBE 1 APPLIC TOPICAL (21:24)
[2024-09-11] MEDS: CYCLOBENZAPRINE HCL 10 MG TABLET PO (21:25)
[2024-09-12] VITALS (15 sets, daily range): BP systolic 110–138; BP diastolic 65–83; PULSE 62–84; TEMP 36.2–36.7; O2SAT 90–98
[2024-09-12] MEDS: ALBUTEROL SULFATE 200 PUFF/6.7 GM INHALER IH (04:58)
[2024-09-12] MEDS: CYCLOBENZAPRINE HCL 10 MG TABLET PO ×3 (05:50→22:09)
[2024-09-12] MEDS: GABAPENTIN 300 MG CAPSULE 600 MG PO ×3 (05:50→22:09)
[2024-09-12] MEDS: ACETAMINOPHEN 500 MG TABLET PO ×3 (05:50→22:10)
[2024-09-12] MEDS: PIPERACILLIN SODIUM/TAZOBACTAM 3.375 GM in 0.9 % SODIUM CHLORIDE 50 ML IV ×3 (05:50→22:10)
[2024-09-12 06:58] LABS: Basophils Percent Auto 0.3 % (0.2-2.0); Hematocrit 37.5 % (42.0-54.0); Hemoglobin 12.1 g/dL (14.0-18.0); Immature Granulocytes Abs Auto 0.02 10^3/uL (0.00-0.03); Immature Granulocytes Pct Auto 0.5 % (0.0-0.5); Lymphocytes Absolute Auto 1.6 10^3/uL (1.2-3.8); Lymphocytes Percent Auto 41.4 % (20.5-60.0); Mean Corpuscular HGB Conc 32.3 g/dL (29.9-35.2); Mean Corpuscular Hemoglobin 30.3 pg (25.9-34.0); Mean Platelet Volume 11.4 fL (9.5-13.5); Monocytes Absolute Auto 0.4 10^3/uL (0.3-0.8); Monocytes Percent Auto 10.6 % (1.7-12.0); Neutrophils Absolute Auto 1.8 10^3/uL (1.4-6.5); Neutrophils Percent Auto 47.2 % (43.0-75.0); Platelet Count 161 10^3/uL (150-450); Red Blood Count 3.99 10^6/uL (4.70-6.10); Red Cell Distribution Width 13.1 % (11.0-15.0); White Blood Count 3.8 10^3/uL (4.0-11.0)
[2024-09-12 07:11] LABS: Anion Gap 13.7; BUN Creatinine Ratio 23.9; Calcium 8.3 mg/dL (8.5-10.1); Carbon Dioxide 25.4 mmol/L (21.0-32.0); Chloride 109 mmol/L (98-107); Estimated GFR (African America >60 (>=60 mL/min/1.73m^2); Estimated GFR (Non-African Ame >60 (>=60 mL/min/1.73m^2); Glucose 104 mg/dL (74-106); Potassium 4.1 mmol/L (3.5-5.1); Sodium 144 mmol/L (136-145)
--- NOTE | 2024-09-12 10:36 | PT.DAILY ---
Physical Therapy Daily Note PT Daily Note/Assess Start: 09/10/24 10:50 Freq: Status: Active Protocol: Document 09/12/24 10:23 [id number] (Rec: 09/12/24 10:36 [id number]) Physical Therapy Daily Note/Assessment Time In/Time Out Time In 08:20 Time Out 08:35 Pain In Pain Level 0 Pain Out Pain Level 0 Subjective Subjective Patient received in bed and agreeable to work with PT. NC O2 on floor, attempted to place on patient, patient states it was removed. Therapeutic Exercise Time Therapeutic Exercise 10 Minutes (minutes) Therapeutic Exercise 1 Units Therapeutic Exercise Treatment Therapeutic Exercise Patient performed ther ex in supine for KALEIGH ankle pumps Treatment , quad/glut sets x 10 reps. Seated ther ex for toe/ heel rocks, LAQ's, hip flexion, resisted hip ABD/ADD x 10 reps for strengthening KALEIGH with ADL's. Patient performed 2(3) STS with use of KALEIGH hands on chair rest with 1 minute rest in between. Verbal cues for safe hand placement on arm rests vs pulling up on RW. Therapeutic Activity Time Therapeutic Activity 15 Minutes (minutes) Therapeutic Activity 1 Units Therapeutic Activity Treatment Bed Mobility Ability Contact Guard Assist Chair Transfer Contact Guard Assist Ability Therapeutic Activity Bed mobility: supine to R side lying to sitting with Comments use of R hand rail on bed CGA +1. Patient sat EOB ~2 minutes with KALEIGH UE support and flexed trunk, verbal cues to sit upright for better posture and balance. Transfer: sit to stand to RW CGA +1. Patient ambulated ~20 feet x2 with RW, CGA +1 with seated rest break ~2 minutes between walks. Patient placed in chair at bedside, Chair alarm engaged, CBWR and nursing notified of patient placement and acknowledged information. O2 sat @ 90% prior to treatment and 87% after functional mobility. Total Physical Therapy Time Total Therapy 25 Minutes Total Physical 2 Therapy Units Summary Daily Note Summary Patient fatigues with exertion after walking. O2 sat decreased with exertion. Patient would benefit from SNF to address functional deficits in order to return to PLOF.
[2024-09-12] MEDS: REMDESIVIR 100 MG in 0.9 % SODIUM CHLORIDE 100 ML 200 MG IV (10:42)
[2024-09-12] MEDS: 0.9 % SODIUM CHLORIDE 250 ML 10 ML IV (10:43)
[2024-09-12] MEDS: CLOPIDOGREL BISULFATE 75 MG TABLET PO (10:46)
[2024-09-12] MEDS: PRIMIDONE 50 MG TABLET PO (10:46)
[2024-09-12] MEDS: LEVOFLOXACIN 750 MG TABLET PO (10:46)
[2024-09-12] MEDS: CELECOXIB 200 MG CAPSULE PO (10:46)
[2024-09-12] MEDS: ENOXAPARIN SODIUM 60 MG/0.6 ML SYRINGE SUBQ (10:47)
[2024-09-12] MEDS: CARVEDILOL 12.5 MG TABLET PO ×2 (10:47→22:09)
[2024-09-12] MEDS: ASPIRIN 81 MG TABLET.DR PO (10:47)
[2024-09-12] MEDS: MULTIVITAMIN TABLET 1 TAB PO (10:47)
[2024-09-12] MEDS: FAMOTIDINE 20 MG TABLET 40 MG PO (10:47)
[2024-09-12] MEDS: ATORVASTATIN CALCIUM 40 MG TABLET 80 MG PO (10:47)
[2024-09-12] MEDS: DEXAMETHASONE SOD PHOS 10 MG/ML VIAL 6 MG IV (10:48)
[2024-09-12] MEDS: TRIAMCINOLONE ACETONIDE 0.1% CREAM 15 GM TUBE 1 APPLIC TOPICAL ×2 (10:49→22:19)
[2024-09-12] MEDS: DOCUSATE SODIUM 100 MG CAPSULE PO (10:55)
[2024-09-12] MEDS: LOSARTAN POTASSIUM 50 MG TABLET PO (10:55)
[2024-09-12] MEDS: DIVALPROEX SODIUM 500 MG TABLET.DR PO ×2 (10:55→22:10)
--- NOTE | 2024-09-12 10:59 | P.PN_ITS ---
Progress Note: Subjective Subjective Interval history: Awake and alert - no complaints even pain - Exam Constitutional Vital Signs, click to edit/add: Last Vital Signs Temp 97.2 F L 09/12/24 03:34 Pulse 65 09/12/24 10:00 Resp 18 09/12/24 04:58 BP 127/65 09/12/24 03:34 Pulse Ox 94 L 09/12/24 05:50 O2 Del Method Room Air 09/12/24 04:58 O2 Flow Rate 3 09/11/24 19:42 Documenting provider has reviewed patient's vital signs: yes Common normals: apparent distress (Minimal conversational dyspnea) Chest Common normals: inspection of chest normal Respiratory Common normals: normal respiratory effort (Dyspnea appears resolved) Auscultation: rhonchi (improved) and diminished lung sounds Cardio Common normals: regular rate and regular rhythm GI Common normals: Normal to inspection, nondistended, normoactive bowel sounds present Extremity Common normals: normal to inspection Progress Note: Objective Labs Labs: Short CBC 09/12/24 Range/Units 06:51 WBC 3.8 L (4.0-11.0) 10^3/uL Hgb 12.1 L (14.0-18.0) g/dL Hct 37.5 L (42.0-54.0) % Plt Count 161 (150-450) 10^3/uL BMP 09/12/24 06:51 Sodium 144 Potassium 4.1 Chloride 109 H Carbon Dioxide 25.4 BUN 28.0 H Creatinine 1.17 Glucose 104 Calcium 8.3 L Progress Note: A&P Assessment and Plan (1) Pneumonia: Qualifiers: Laterality: left Lung location: lower lobe of lung Pneumonia type: due to unspecified organism Qualified Code(s): J18.9 - Pneumonia, unspecified organism (2) Generalized weakness: (3) COVID-19: Plan Admission findings: Sinus tachycardia, respiratory distress, uncontrolled hypertension, acute hypoxia with O2 sat of 89% on 3 L, positive acute COVID-19, CT scan consistent with bilateral pulmonary infiltrates consistent with COVID-19 pneumonia. Acute hypoxia secondary to acute COVID-19 pneumonia-remdesivir, steroids, antibiotics to cover possible nosocomial infection.-Continue current treatment plan overall patient appears to be improving, will change inhlaers to PRN Acute kidney injury-baseline creatinine of 0.91, creatinine on admission of 1.6 at the 175.8% above baseline with decreased urine output over the last 12 hours with segments acute kidney injury stage 2 -will watch his oral intake, hold off on IV fluids secondary to the COVID-19 and prefer to keep him on the dry side, slightly improved today - stable - back to baseline Abnormal blood culture-positive for staph but looks like it is staph epi, patient on antibiotics Lumbar compression fractures these were not new, had these in the past-pain control Hypertension-continue with home medications Hypercholesterolemia continue with home medications GERD continue with home medications Hyperglycemia on admission-this is likely secondary to stress from [id number] Admission status: Patient with acute hypoxia and acute COVID-19 pneumonia, medically necessary treatment will span 2 midnights. Inpatient status ?
[2024-09-12] MEDS: TAMSULOSIN HCL 0.4 MG CAPSULE PO (22:09)
[2024-09-12] MEDS: CETIRIZINE HCL 10 MG TABLET 20 MG PO (22:09)
[2024-09-12] MEDS: EZETIMIBE 10 MG TABLET PO (22:09)
[2024-09-12] MEDS: MIRTAZAPINE 15 MG TABLET 45 MG PO (22:10)
[2024-09-13 03:43] VITALS: BP 133/78; PULSE 56; TEMP 36.6; O2SAT 91
[2024-09-13] MEDS: PIPERACILLIN SODIUM/TAZOBACTAM 3.375 GM in 0.9 % SODIUM CHLORIDE 50 ML IV (05:25)
[2024-09-13] MEDS: GABAPENTIN 300 MG CAPSULE 600 MG PO (05:25)
[2024-09-13] MEDS: CYCLOBENZAPRINE HCL 10 MG TABLET PO (05:25)
[2024-09-13] MEDS: ACETAMINOPHEN 500 MG TABLET PO (05:25)
[2024-09-13 06:23] LABS: Basophils Percent Auto 0.2 % (0.2-2.0); Hematocrit 35.5 % (42.0-54.0); Hemoglobin 11.6 g/dL (14.0-18.0); Immature Granulocytes Abs Auto 0.02 10^3/uL (0.00-0.03); Immature Granulocytes Pct Auto 0.4 % (0.0-0.5); Lymphocytes Absolute Auto 2.3 10^3/uL (1.2-3.8); Lymphocytes Percent Auto 46.4 % (20.5-60.0); Mean Corpuscular HGB Conc 32.7 g/dL (29.9-35.2); Mean Corpuscular Hemoglobin 30.5 pg (25.9-34.0); Mean Corpuscular Volume 93.4 fL (80.0-94.0); Mean Platelet Volume 11.4 fL (9.5-13.5); Monocytes Absolute Auto 0.4 10^3/uL (0.3-0.8); Monocytes Percent Auto 8.8 % (1.7-12.0); Neutrophils Absolute Auto 2.2 10^3/uL (1.4-6.5); Neutrophils Percent Auto 44.2 % (43.0-75.0); Platelet Count 173 10^3/uL (150-450); Red Cell Distribution Width 13.1 % (11.0-15.0); White Blood Count 4.9 10^3/uL (4.0-11.0)
[2024-09-13 06:37] LABS: Anion Gap 11.4; BUN Creatinine Ratio 19.8; Calcium 8.3 mg/dL (8.5-10.1); Carbon Dioxide 27.5 mmol/L (21.0-32.0); Chloride 111 mmol/L (98-107); Estimated GFR (African America >60 (>=60 mL/min/1.73m^2); Estimated GFR (Non-African Ame 57 (>=60 mL/min/1.73m^2); Glucose 105 mg/dL (74-106); Potassium 3.9 mmol/L (3.5-5.1); Sodium 146 mmol/L (136-145)
[2024-09-13 08:00] VITALS: BP 124/74; PULSE 57; TEMP 36.3; O2SAT 88
--- NOTE | 2024-09-13 09:07 | P.DS_ITS ---
DS: Providers Provider Date of admission: 09/10/24 06:25 Primary care physician: Norbert Jiang MD Consults: 09/10/24 06:26 Occupational Therapy Eval and Treat Routine Reason for consultation: Only if needed for Rehab Has provider been notified: No Physical Therapy Eval and Treat Routine Reason for consultation: Eval and Treat Has provider been notified: No DS: Diagnosis Discharge Diagnosis (1) Pneumonia: Qualifiers: Laterality: left Lung location: lower lobe of lung Pneumonia type: due to unspecified organism Qualified Code(s): J18.9 - Pneumonia, unspecified organism (2) Generalized weakness: (3) COVID-19: Plan Admission findings: Sinus tachycardia, respiratory distress, uncontrolled hypertension, acute hypoxia with O2 sat of 89% on 3 L, positive acute COVID-19, CT scan consistent with bilateral pulmonary infiltrates consistent with COVID-19 pneumonia. Acute hypoxia secondary to acute COVID-19 pneumonia-remdesivir, steroids, antibiotics to cover possible nosocomial infection.-Continue current treatment plan overall patient appears to be improving, will change inhlaers to PRN Acute kidney injury-baseline creatinine of 0.91, creatinine on admission of 1.6 at the 175.8% above baseline with decreased urine output over the last 12 hours with segments acute kidney injury stage 2 -will watch his oral intake, hold off on IV fluids secondary to the COVID-19 and prefer to keep him on the dry side, slightly improved today - stable - back to baseline Abnormal blood culture-positive for staph but looks like it is staph epi, patient on antibiotics Lumbar compression fractures these were not new, had these in the past-pain control Hypertension-continue with home medications Hypercholesterolemia continue with home medications GERD continue with home medications Hyperglycemia on admission-this is likely secondary to stress from [id number] Admission status: Patient with acute hypoxia and acute COVID-19 pneumonia, medically necessary treatment will span 2 midnights. Inpatient status ? ? DS: Summary Hospital Course Hospital Course: Patient admitted with Sinus tachycardia, respiratory distress, uncontrolled hypertension, acute hypoxia with O2 sat of 89% on 3 L, positive acute COVID-19, CT scan consistent with bilateral pulmonary infiltrates consistent with COVID-19 pneumonia.. Treated with remdesivir steroids, inhalers, antibiotics, patient is fluid improved over the first couple days, still significant weakness and cough and shortness of breath, but off of supplemental oxygen, medically stable for discharge. I will follow patient at rehab. Medications see list. Time Spent with Patient Time attestation: Total time spent providing and/or coordinating discharge services: Exam Constitutional Vital Signs, click to edit/add: Last Vital Signs Temp 97.4 F L 09/13/24 08:00 Pulse 57 L 09/13/24 08:00 Resp 18 09/13/24 08:00 BP 124/74 09/13/24 08:00 Pulse Ox 88 L 09/13/24 08:00 O2 Del Method Room Air 09/13/24 08:00 O2 Flow Rate 3 09/11/24 19:42 Documenting provider has reviewed patient's vital signs: yes Common normals: apparent distress (Minimal conversational dyspnea) Chest Common normals: inspection of chest normal Respiratory Common normals: normal respiratory effort (Dyspnea appears resolved) Auscultation: rhonchi (improved) and diminished lung sounds Cardio Common normals: regular rate and regular rhythm GI Common normals: Normal to inspection, nondistended, normoactive bowel sounds present Extremity Common normals: normal to inspection DS: Data Data Completed and Pending Labs on day of discharge: Labs from last 24 hours 09/13/24 06:11 WBC 4.9 RBC 3.80 L Hgb 11.6 L Hct 35.5 L MCV 93.4 MCH 30.5 MCHC 32.7 RDW 13.1 Plt Count 173 MPV 11.4 Neut % (Auto) 44.2 Lymph % (Auto) 46.4 Craig % (Auto) 8.8 Eos % (Auto) 0.0 L Baso % (Auto) 0.2 Neut # (Auto) 2.2 Lymph # (Auto) 2.3 Craig # (Auto) 0.4 Eos # (Auto) 0.0 Baso # (Auto) 0.0 Abs Immat Gran (auto) 0.02 Imm/Tot Granulo (auto) 0.4 Sodium 146 H Potassium 3.9 Chloride 111 H Carbon Dioxide 27.5 Anion Gap 11.4 BUN 25.0 H Creatinine 1.26 Est GFR ( Amer) >60 Est GFR (Non-Af Amer) 57 L BUN/Creatinine Ratio 19.8 Glucose 105 Calcium 8.3 L Preliminary micro results at discharge 09/10/24 00:10 Blood Culture Result 1 - Preliminary Blood - Left Antecubital Discharge Plan Discharge Disposition: Xfer SNF Condition: Fair Discharge Medications: New tramadol 100 mg tablet 100 mg PO Q6H MDD 4 PRN (Reason: pain) Qty: 120 0RF levofloxacin 750 mg Tablet 750 mg PO QD Qty: 7 0RF albuterol sulfate 90 mcg/actuation Hfa Aerosol Inhaler 2 puff inhalation Q6H Qty: 8.5 11RF Continued clopidogrel 75 mg tablet 75 mg PO QDAY carvedilol [Coreg] 12.5 mg tablet 12.5 mg PO BID Rx Instructions: must administer with a meal/food celecoxib 200 mg Capsule 200 mg PO DAILY Qty: 30 11RF mirtazapine 45 mg tablet 45 mg PO .QHS ezetimibe 10 mg tablet 10 mg PO .qhs Patient Comments: at bedtime cyclobenzaprine 10 mg tablet 10 mg PO TID divalproex 500 mg tablet,delayed release (DR/EC) 500 mg PO Q12H famotidine 40 mg tablet 40 mg PO DAILY tamsulosin 0.4 mg capsule 0.4 mg PO .qhs Patient Comments: bedtime gabapentin 600 mg tablet 600 mg PO QID multivitamin with folic acid [High Potency Multivitamin] 1 tab PO DAILY docusate sodium 100 mg capsule 100 mg PO .qod Patient Comments: every other day acetaminophen 500 mg capsule 500 mg PO TID atorvastatin 80 mg tablet 80 mg PO DAILY primidone 50 mg tablet 50 mg PO DAILY aspirin 81 mg tablet,delayed release (DR/EC) 81 mg PO DAILY triamcinolone acetonide 0.1 % cream 1 applic TOPICAL BID PRN (Reason: rash) losartan 50 mg tablet 50 mg PO DAILY nicotine 21 mg/24 hr patch 24 hour 1 patch transdermal Q24H nicotine 7 mg/24 hr patch 24 hour 1 patch transdermal Q24H Discontinued tramadol 50 mg tablet 100 mg PO QID PRN (Reason: pain) Print Language: Congolese 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
[2024-09-13] MEDS: ASPIRIN 81 MG TABLET.DR PO (10:00)
[2024-09-13] MEDS: LOSARTAN POTASSIUM 50 MG TABLET PO (10:00)
[2024-09-13] MEDS: FAMOTIDINE 20 MG TABLET 40 MG PO (10:00)
[2024-09-13] MEDS: REMDESIVIR 100 MG in 0.9 % SODIUM CHLORIDE 100 ML 200 MG IV (10:00)
[2024-09-13] MEDS: ENOXAPARIN SODIUM 60 MG/0.6 ML SYRINGE SUBQ (10:00)
[2024-09-13] MEDS: CELECOXIB 200 MG CAPSULE PO (10:00)
[2024-09-13] MEDS: CARVEDILOL 12.5 MG TABLET PO (10:00)
[2024-09-13] MEDS: ATORVASTATIN CALCIUM 40 MG TABLET 80 MG PO (10:00)
[2024-09-13] MEDS: CLOPIDOGREL BISULFATE 75 MG TABLET PO (10:00)
[2024-09-13] MEDS: PRIMIDONE 50 MG TABLET PO (10:00)
[2024-09-13] MEDS: MULTIVITAMIN TABLET 1 TAB PO (10:00)
[2024-09-13] MEDS: LEVOFLOXACIN 750 MG TABLET PO (10:00)
[2024-09-13] MEDS: DEXAMETHASONE SOD PHOS 10 MG/ML VIAL 6 MG IV (10:01)
[2024-09-13] MEDS: TRIAMCINOLONE ACETONIDE 0.1% CREAM 15 GM TUBE 1 APPLIC TOPICAL (10:02)
[2024-09-13] MEDS: DIVALPROEX SODIUM 500 MG TABLET.DR PO (10:05)
[2024-09-13 10:30] VITALS: O2SAT 92
--- NOTE | 2024-09-13 11:30 | PC.NURSE ---
Attempted to call report to [facility] 3x since 1100.. no answer
== END 2024-09-13 12:15 | DRG 177 ==
LOC: ER 09-10 02:49 → MS 09-10 07:07
PROVIDERS: Registered Nurse; Admitting Provider Family Medicine; Emergency Provider Student in an Organized Health Care Education/Training Program; PCP Family Medicine; Visit Provider Family Medicine
DX: U07.1 COVID-19 (principal); G93.41 Metabolic encephalopathy; J12.82 Pneumonia due to coronavirus disease 2019; N17.9 Acute kidney failure, unspecified; M48.56XA Collapsed vertebra, not elsewhere classified, lumbar region, initial encounter for fracture; E86.0 Dehydration; R53.1 Weakness; G40.909 Epilepsy, unspecified, not intractable, without status epilepticus; W19.XXXA Unspecified fall, initial encounter; I25.10 Atherosclerotic heart disease of native coronary artery without angina pectoris; I10 Essential (primary) hypertension; G25.81 Restless legs syndrome; Z66 Do not resuscitate; G47.30 Sleep apnea, unspecified; F32.A Depression, unspecified; R09.02 Hypoxemia; K21.9 Gastro-esophageal reflux disease without esophagitis; Z95.1 Presence of aortocoronary bypass graft; Z95.5 Presence of coronary angioplasty implant and graft; Z87.891 Personal history of nicotine dependence; Z79.02 Long term (current) use of antithrombotics/antiplatelets; Z79.899 Other long term (current) drug therapy; Z88.8 Allergy status to other drugs, medicaments and biological substances; Z79.82 Long term (current) use of aspirin
CPT/HCPCS: 36415; 70450; 71260; 72125; 74177; 80048; 80053; 80320; 81001; 82948; 83605; 83735; 83880; 84484; 85025; 85610; 85730; 87040; 87070; 87150; 87186; 87205; 87804; 87811; 93005; 94640; 94667; 94668; 94761; 96360; 97110; 97162; 97165; 97530; 97535; 99285; J0248; J1100; J1650; J2543; Q9966; Q9967

== ENCOUNTER 2024-09-27 14:06 | Outpatient (REF) | payer MEDICARE, BC, SELFPAY ==
--- OUTSIDE RECORDS SUMMARY | 2024-09-27 14:11 | XMS_ITS | CCD ---
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 Name Role Phone Bro Da Silva Primary Care Physician Unavailab Lior Dow Attending Physician Unavailable MD Genesis Reynolds Primary Care Provider [phone] MD Segundo Huston Emergency Provider MD Jodie Bauerop Admit Provider MD Jodie Bauerop Attending Provider LEXIE Mckeon Other Provider Unavailable DO Lawrence Lee Other Provider MD Kaden Summers Other Provider [phone] MD Edinson Bustamante Other Provider MD Itzel Adams Other Provider [phone] MD Ramos Fraga Other Provider LILA Hopper Other Provider MD Cinthia Rae Other Provider MD Ramón Ayala Other Provider MD Flavio Ramirez Other Provider Goldy [facility] Espinal Other Provider MD Adelaide Leonardo Other Provider [phone] MD Itzel Adams Referring Provider MD Genesis Reynolds Primary Care Provider MD Benson Lane Attending Provider Benson Lane Unavailable DR GENESIS VILLANUEVA Admitting Unavailable HOJung ., DR HURTADO Primary Care Unavailable HOY ., DR HURTADO Attending Unavailable HOY ., DR HURTADO Primary Care Unavailable ANA PAULA ., LAVELL Admitting Unavailable ANA PAULA ., LAVELL Consulting Unavailable ANA PAULA ., LAVELL Attending Unavailable MOMO KHAN Consulting Unavailable GAIL ., DR HURTADO Primary Care Unavailable AUBREY POON Consulting Unavailable AUBREY POON Attending Unavailable AUBREY POON Admitting Unavailable HOJung ., DR HURTADO Primary Care Unavailable DIAB [...] DR HURTADO Attending Unavailable HOJung ., DR HRUTADO Admitting Unavailable SARAI AVALOS Consulting Unavailable ANA PAULA ., LAVELL Consulting Unavailable ДМИТРИЙ OSWALD Consulting Unavailable NIGEL TADEO Consulting Unavailable MENDOZA BEE Consulting Unavailable MILAD ABARCA Consulting Unavailable HOJung ., DR HURTADO Primary Care Unavailable HOJung ., DR HURTADO Attending Unavailable HOJung ., DR HURTADO Consulting Unavailable GAIL ., DR HURTADO Admitting Unavailable NADJOANR, DR BRO Diaz Consulting Unavailable TEMI RUSSO [...] Adams Attending Unavailable Itzel Adams Attending Unavailable Bryan, Itzel Attending Unavailable Itzel Adams Attending Unavailable Sharad, MsElizabeth Liliareynaldo Moore Attending Maria Teresa Da Silva MD, Bro Barry Primary Care Provider EBENEZER HOPKINS Referring Unavailable CLARIBEL, BRO BARRY Primary Care Unavailabl e SUSAN URIOSTEGUI Referring Unavailable NADERER, BRO BARRY Primary Care Unavailabl e NADERER, BRO BARRY Primary Care Unavailabl e ANTHONY [...] Unavailable HOY, GENESIS M Primary Care Unavailable Ebenezer Hopkins MD Primary Care Provider UnavailGenesis Horne MD Attending Provider [phone] Genesis Reynolds Attending Unavailable Hoy, Genesis M Admitting Unavailable Allergies Allergy Classification Reported Allergen(s) Allergy Type Date of Onset Reaction(s) Facility (7 sources) Amitriptyline; Translations: [Amitriptyline] Drug Allergy 05-18-20 14 Unknown Reaction [facility] (12 sources) atorvastatin; Translations: [atorvastatin] Drug Allergy 01-24-20 19 Unknown Reaction, Unknown [facility] (6 sources) chlordiazePOXIDE Drug Allergy 01-24-20 19 Unknown Reaction [facility] (6 sources) clidinium Drug Allergy 01-24-20 19 Unknown Reaction [facility] (16 sources) fentaNYL; Translations: [Fentanyl] Drug Allergy 12-27-19 17 Unknown Reaction, Unknown [facility] (9 sources) venlafaxine; Translations: [VENLAFAXINE] Drug Allergy 05-13-20 14 Other (See Comments) [facility] (4 sources) Citalopram; Translations: [Citalopram] Drug Allergy 01-11-20 21 Unknown Reaction [facility] (4 sources) Simvastatin Drug Allergy 07-17-20 22 Unknown Reaction [facility] (7 sources) Succinylcholine; Translations: [Succinylcholine] Drug Allergy 09-08-20 04 Unknown Reaction [facility] (7 sources) Amitriptyline; Translations: [Elavil] Drug Allergy 04-20-20 14 Unknown [facility] (7 sources) chlordiazePOXIDE / clidinium Drug Allergy 11-05-19 23 Unknown [facility] (7 sources) venlafaxine; Translations: [Effexor] Drug Allergy 04-06-20 14 Unknown [facility] (1 source) buPROPion Drug Allergy [facility] (1 source) Citalopram Drug Allergy 12-31-19 20 [facility] (1 source) mirabegron Drug Allergy [facility] (1 source) Simvastatin Drug Allergy [facility] (1 source) tiZANidine Drug Allergy [facility] (1 source) Amitriptyline Drug Allergy 05-18-20 14 [facility] [employer] Work Phone: (1 source) metFORMIN; Translations: [METFORMIN] Drug Allergy 11-30-19 22 [facility] (1 source) OTHER; Translations: [OTHER] Propensity to adverse reactions to food (disorder) 01-11-20 21 [facility] Medications Current Medications Medication Drug Class(es) Dates Sig (Normalized) Sig (Original) acetaminophen 650 mg oral tablet (13 sources) Start: 07-17-2022 take 1 tablet by mouth every four hours as needed for pain Acetaminophen 650 mg Tablet Active 650 MG PO Q4H as needed for pain July 17, 2022 12:00am Start: 01-12-2018 End: 12-23-2018 take 1 tablet by mouth every six hours as needed for fever Acetaminophen 500 mg Tablet Discontinued 500 MG PO Q6H as needed for Fever January 11, 2018 11:00pm December 23, 2018 4:29pm [id number] 200 actuat albuterol 0.09 mg/actuat metered dose inhaler (1 source) beta2-Adrenergic Agonist Start: 01-01-2017 take 2 puff(s) by inhalation every six hours as needed albuterol sulfate HFA 108 (90 BASE) MCG/ACT inhaler Inhale 2 puffs into the lungs every 6 hours as needed for Shortness of Breath 1 Inhaler 3 01/01/2017 Active amitriptyline hydrochloride 50 mg oral tablet (5 sources) Tricyclic Antidepressant Start: 07-17-2022 take 1 tablet by mouth once daily at bedtime Amitriptyline 50 mg Tablet Active 50 MG PO Daily at bedtime July 17, 2022 12:00am take 1 tablet by mouth once domenica y amitriptyline (ELAVIL) 100 MG tablet Take 1 tablet by mouth nightly 0 Active aspirin 81 mg chewable tablet (15 sources) Platelet Aggregation Inhibitor, Nonsteroidal Anti-inflammatory Drug Start: 01-12-2018 take 1 tablet by mouth once daily Aspirin (Aspirin Childrens) 81 mg Tablet,Chewable Active 81 MG PO Daily January 11, 2018 11:00pm atorvastatin 40 mg oral tablet (13 sources) HMG-CoA Reductase Inhibitor Start: 07-17-2022 take 1 tablet by mouth once daily Atorvastatin 40 mg Tablet Active 40 MG PO Daily July 17, 2022 12:00am Start: 12-23-2018 End: 12-23-2018 take 1 tablet by mouth once daily Atorvastatin (Lipitor) 40 mg Tablet Discontinued 40 MG PO Daily December 22, 2018 11:00pm December 23, 2018 5:01pm brexpiprazole 3 mg oral tablet (5 sources) Atypical Antipsychotic Start: 07-17-2022 take 1 tablet by mouth once daily Brexpiprazole (Rexulti) 3 mg Tablet Active 3 MG PO 1 time daily July 17, 2022 12:00am 24 hr buPROPion hydrochloride 150 mg extended release oral tablet (4 sources) Aminoketone Start: 07-17-2022 take 1 tablet by mouth once daily Bupropion Hcl 150 mg tablet extended release 24 hr Active 150 MG PO 1 time daily July 17, 2022 12:00am take 1 tablet by chirag th once daily in the morning buPROPion (WELLBUTRIN XL) 300 MG extende d release tablet Take 1 tablet by mouth every morning 0 Active busPIRone hydrochloride 10 mg oral tablet (8 sources) Start: 07-17-2022 take 1 tablet by mouth twice daily Buspirone 10 mg Tablet Active 10 MG PO Twice daily July 17, 2022 12:00am Start: 07-17-2022 End: 07-17-2022 take 1 tablet by mouth twice daily Buspirone 15 mg Tablet Discontinued 15 MG PO Twice daily July 17, 2022 12:00am July 17, 2022 10:33pm cariprazine 6 mg oral capsule (6 sources) Atypical Antipsychotic take 1 capsule by mouth every twenty-four hours Vraylar 6 MG 1 capsule Orally Once a day for 30 days Active carvedilol 12.5 mg oral tablet (5 sources) alpha-Adrenergic Barbara, beta-Adrenergic Barbara Start: 07-17-20 take 1 tablet by mouth twice daily at mealtime Carvedilol 12.5 mg Tablet Active 12.5 MG PO Twice daily July 17, 2022 12:00am must administer with a meal/food celecoxib 200 mg oral capsule (11 sources) Nonsteroidal Anti-inflammatory Drug Start: 07-17-20 take 1 capsule by mouth once daily Celecoxib 200 mg Capsule Active 200 MG PO Daily July 17, 2022 12:00am citalopram 20 mg oral tablet (11 sources) Serotonin Reuptake Inhibitor Start: 07-17-20 take 1 tablet by mouth once daily Citalopram 20 mg Tablet Active 20 MG PO Daily July 17, 2022 12:00am Start: 02-03-2019 End: 04-10-2019 Citalopram 20 mg Tablet Disc ontinued 30 MG PO Daily at bedtime February 02, 2019 11:00pm April 10, 2019 9:22pm Start: 02-03-2019 End: 04-11-2019 take 30 mg [...] 9:24pm hydrALAZINE hydrochloride 25 mg oral tablet (5 sources) Arteriolar Vasodilator Start: 07-17-2022 take 1 tablet by mouth three times daily Hydralazine 25 mg Tablet Active 25 MG PO Three times daily July 17, 2022 12:00am lamoTRIgine 100 mg oral tablet (5 sources) Mood Stabilizer, Anti-epileptic Agent Start: 07-17-2022 take 1 tablet by mouth once daily Lamotrigine 100 mg Tablet Active 100 MG PO Daily July 17, 2022 12:00am take 1 tablet by mouth once domenica y lamoTRIgine (LAMICTAL) 200 MG tablet Take 1 tablet by mouth daily 0 Active lisinopril 10 mg oral tablet (13 sources) Angiotensin Converting Enzyme Inhibitor Start: 07-17-2022 take 1 tablet by mouth once daily Lisinopril 10 mg Tablet Active 10 MG PO Daily July 17, 2022 12:00am Start: 01-12-2018 End: 01-17-2018 take 1 tablet by mouth once daily Lisinopril 20 mg Tablet Discontinued 20 MG PO Daily January 11, [...] 0 Active rOPINIRole 1 mg oral tablet (18 sources) Nonergot Dopamine Agonist Start: 07-17-2022 take 1 tablet by mouth once daily at bedtime for muscle spasms Ropinirole 1 mg Tablet Active 1 MG PO Daily at bedtime as needed for Muscle Spasm July 17, 2022 12:00am administer 1-3 hours [...] 10:36pm traMADol hydrochloride 50 mg oral tablet (3 sources) Opioid Agonist Start: 07-20-2022 take 1 tablet by mouth every eight hours as needed for pain Tramadol 50 mg tablet Active 50 MG PO Q8H as needed for pain 8 3 July 20, 2022 12:00am UNABLE TO FIND (1 source) UNABLE TO FIND nucyenta for pain 0 Active divalproex sodium 500 mg delayed release oral tablet (20 sources) Mood Stabilizer, Anti-epileptic Agent Start: 07-17-2022 take 1 tablet by mouth twice daily Divalproex 500 mg Tablet,Delayed Release (Dr/Ec) Active 500 MG PO Twice daily July 17, 2022 12:00am Start: 04-10-2019 End: 12-17-2019 take 1 tablet by mouth once daily Divalproex 500 mg Tablet,Delayed Release (Dr/Ec) Discontinued 500 MG PO Daily 30 April 19, 2019 11:00pm December 17, 2019 9:16am Start: 04-10-2019 End: 12-17-2019 take 2 tablets by mouth at bedtime Divalproex 500 mg Tablet,Delayed Release (Dr/Ec) Discontinued 1000 MG PO Bedtime 60 April 19, 2019 11:00pm December 17, 2019 9:16am Start: 04-10-2019 End: 12-17-2019 take 1000 mg by mouth at bedtime Divalproex Discontinued 1000 MG PO Bedtime 60 April 19, 2019 11:00pm December 17, 2019 9:16am Start: 12-27-2018 End: 04-11-2019 take 1 tablet by mouth twice daily Divalproex 500 mg Tablet,Delayed Release (Dr/Ec) Discontinued 500 MG PO Twice daily 60 [...] / HYDROcodone bitartrate 5 mg oral tablet (14 sources) Opioid Agonist Start: 12-17-2019 End: 07-20-2022 take 1 tablet by mouth twice daily as needed for pain Hydrocodone-Aceta minophen (Stanley) 5-325 mg tablet Discontinued 1 TAB PO Twice daily as needed for Pain 0 December 23, 2019 8:55am July 20, [...] 2019 9:02am Start: 02-11-2018 End: 12-27-2018 take 1 tablet by mouth once daily in the morning Amlodipine 5 mg tablet Discontinued 5 MG PO Every morning December 22, 2018 11:00pm December 27, 2018 9:50am DULoxetine 60 mg delayed release oral capsule (20 sources) Serotonin and Norepinephrine Reuptake Inhibitor Start: 12-27-2018 End: 01-24-2019 Duloxetine 60 mg Capsule,Delayed Release(Dr/Ec) Discontinued 30 MG PO Twice daily December 26, 2018 11:00pm January 24, 2019 9:44am Start: 12-27-2018 End: 01-24-2019 take 30 mg by mouth twice daily Duloxetine Discontinue d 30 MG PO Twice daily December 26, 2018 11:00pm January 24, 2019 9:44am Start: 12-23-2018 End: 12-27-2018 take 1 capsule by mouth twice daily Duloxetine 60 mg capsule,delayed release(DR/EC) Discontinued 60 MG PO Twice daily December 23, 2018 4:45pm December 27, 2018 9:50am Start: 01-17-2018 End: 12-23-2018 Duloxetine 60 mg capsule,del ayed release(DR/EC) Discontinued 20 MG PO Daily January 17, 2018 10:35am December 23, 2018 4:31pm Start: 01-17-2018 End: 12-23-2018 take 20 mg by mouth once daily Duloxetine Discontinued 20 MG PO Daily January 17, 2018 10:35am December 23, 2018 4:31pm Start: 01-12-2018 End: 01-17-2018 take 1 capsule by mouth once daily Duloxetine 60 mg capsule,delayed release(DR/EC) Discontinued 60 MG PO Daily January 11, 2018 11:00pm January 17, 2018 10:36am gabapentin 600 mg oral tablet (20 sources) Anti-epileptic Agent Start: 12-17-2019 End: 07-17-2022 take 1 tablet by mouth four times daily Gabapentin (Neurontin) 600 mg tablet Discontinued 600 MG PO Four times daily December 16, 2019 11:00pm July 17, 2022 10:35pm Start: 12-16-2019 End: 01-07-2020 Gabapentin 400 mg capsule Discontinued 600 MG PO Four times daily December 16, 2019 9:30pm January 07, 2020 5:38am Start: 12-16-2019 End: 01-07-2020 take 600 mg by mouth four times daily Gabapentin Discontinued 600 MG PO Four times daily December 16, 2019 9:30pm January 07, 2020 5:38am Start: 04-20-2019 End: 12-16-2019 take 1 capsule by mouth three times daily Gabapentin 400 mg Capsule Discontinued 400 MG PO Three times daily April 19, 2019 11:00pm December 16, 2019 9:31pm Start: 02-03-2019 End: 04-20-2019 take 1 capsule by mouth three times daily Gabapentin 300 mg Capsule Discontinued 300 MG PO Three times daily [...] mg / lisinopril 20 mg oral tablet (8 sources) Thiazide Diuretic, Angiotensin Converting Enzyme Inhibitor [...] 1 tablet by mouth once daily Lisinopril-Hydrochlorothiazide 20-25 mg Tablet Discontinued 1 TAB PO Daily February 10, 2018 11:00pm February 11, 2018 10:59am hydrOXYzine hydrochloride 25 mg oral tablet (17 sources) Antihistamine Start: 12-16-2019 End: 12-17-2019 take 2 tablets by mouth four times daily Hydroxyzine Hcl 25 mg tablet Discontinued 50 MG PO Four times daily December 16, 2019 9:30pm December 17, 2019 9:09am Start: 12-16-2019 End: 12-17-2019 take 50 mg by mouth four times daily Hydroxyzine Hcl Discontinued 50 MG PO Four times daily December 16, 2019 9:30pm December 17, 2019 9:09am Start: 04-20-2019 End: 12-16-2019 take 1 tablet by mouth every eight hours as needed for anxiety Hydroxyzine Hcl 25 mg tablet Discontinued 25 MG PO Q8H as needed for anxiety April 19, 2019 11:00pm December 16, 2019 [...] Disco ntinued Start: 01-24-2019 End: 01-24-2019 Lorazepam 2 mg tablet Discon tinued TABLET January 23, 2019 11:00pm January 24, 2019 9:58am Start: 01-17-2018 End: 02-09-2018 take 1 mg by mouth three times daily Lorazepam Discontinued 1 MG PO Three times daily 0 January 17, 2018 10:35am February 08, 2018 9:11pm Start: 01-12-2018 End: 12-27-2018 take 1 tablet by mouth three times daily as needed for anxiety Lorazepam 2 mg tablet Discontinued 2 MG PO Three times daily as needed for Anxiety February 08, 2018 9:11pm December 27, 2018 9:50am take 1 tablet by chirag th every twenty-four hours LORazepam 0.5 MG 1 tablet Orally Once a day for 30 days f41.1 Active 24 hr metFORMIN hydrochloride 500 mg extended release oral tablet (15 sources) Biguanide Start: 01-12-2018 End: 07-17-2022 take 1 tablet by mouth twice daily Metformin 500 mg tablet extended release 24 hr Discontinued 500 MG PO Twice daily January 11, 2018 11:00pm July 17, 2022 10:36pm take 1 tablet by mouth twice tess ly METFORMIN HCL PO Take 1 tablet by mouth 2 times daily 0 Active mirtazapine 30 mg oral table t (11 sources) Start: 12-16-2019 End: 01-07-2020 Mirtazapine 30 mg tablet Discontinued 45 MG PO Daily at bedtime December 16, 2019 9:30pm January 07, 2020 5:38am Start: 12-16-2019 End: 01-07-2020 take 45 mg by mouth once daily at bedtime Mirtazapine Discontinued 45 MG PO Daily at bedtime December 16, 2019 9:30pm January 07, 2020 5:38am Start: 04-20-2019 End: 12-16-2019 take 1 tablet by mouth once daily at bedtime Mirtazapine 30 mg tablet Discontinued 30 MG PO Daily at bedtime April 19, 2019 11:00pm December 16, 2019 9:31pm take 3 tablets by mo uth once daily mirtazapine (REMERON QUEENIE-TAB) 15 MG disintegrating tablet Take 3 tablets by mouth nightly 0 Active morphine sulfate 15 mg extended release oral tablet (20 sources) Opioid Agonist Start: 02-08-2018 End: 12-23-2018 take 4 tablets by mouth every twelve hours Morphine 15 mg tablet extended release Discontinued 60 MG PO Every 12 hours February 08, 2018 9:15pm December 23, 2018 4:28pm Start: 02-08-2018 End: 12-23-2018 take 60 mg by mouth every twelve hours Morphine Discontinued 60 MG PO Every 12 hours February 08, 2018 9:15pm December 23, 2018 4:28pm Start: 01-17-2018 End: 02-09-2018 take 1 tablet by mouth every twelve hours Morphine 15 mg Tablet Extended Release Discontinued 15 MG PO Every 12 hours January 16, 2018 11:00pm February 08, 2018 9:15pm Start: 01-12-2018 End: 01-17-2018 take 1 tablet by mouth twice daily Morphine 60 mg tablet extended release Discontinued 60 MG PO Twice daily January 11, 2018 11:00pm January 17, 2018 10:29am 24 hr nicotine 0.875 mg/hr transdermal system (20 sources) Cholinergic Nicotinic Agonist Start: 12-23-2019 End: 07-17-2022 apply 1 dose transdermal route every twenty-four hours Nicotine 21 mg/24 hr Patch 24 Hour Discontinued 1 EACH TRANSDERML Daily December 22, 2019 11:00pm July 17, 2022 10:36pm Start: 12-23-2019 End: 07-17-2022 Nicotine Discontinued 1 EACH TRANSDERML Daily December 22, 2019 11:00pm July 17, 2022 10:36pm Start: 12-27-2018 End: 04-20-2019 apply 1 dose transdermal route every twenty-four hours Nicotine 21 mg/24 hr Patch 24 Hour Discontinued 1 EACH TRANSDERML Daily December 26, 2018 11:00pm April 20, 2019 11:29am Start: 12-27-2018 End: 04-20-2019 Nicotine Discontinued 1 EACH TRANSDERML Daily December 26, 2018 11:00pm April 20, 2019 11:29am Start: 01-17-2018 End: 02-08-2018 apply 1 dose transdermal route every twenty-four hours Nicotine 21 mg/24 hr Patch 24 Hour Discontinued 1 EACH TRANSDERML Daily January 16, 2018 11:00pm February 08, 2018 9:14pm Start: 01-17-2018 End: 02-09-2018 Nicotine Discontinued 1 EACH TRANSDERML Daily January 16, 2018 11:00pm February 08, 2018 9:14pm apply 1 dose transde rmal route once daily Nicotine 21 MG/24HR 1 patch to skin Transdermal Once a day Active oxybutynin chloride 5 mg oral tablet (8 sources) Cholinergic Muscarinic Antagonist Start: 12-23-2018 End: 04-11-2019 take 1 tablet by mouth once daily in the morning Oxybutynin Chloride 5 mg tablet Discontinued 5 MG PO Every morning December 22, 2018 11:00pm April 10, 2019 9:26pm risperiDONE 3 mg oral tablet (20 sources) Atypical Antipsychotic Start: 12-17-2019 End: 01-07-2020 take 1 tablet by mouth once daily Risperidone (Risperdal) 3 mg tablet Discontinued 3 MG PO Daily December 16, 2019 11:00pm January 07, 2020 5:37am Start: 12-16-2019 End: 12-17-2019 take 3 mg by mouth once daily Risperidone 2 mg tablet Discontinued 3 MG PO Daily December 16, 2019 9:25pm December 17, 2019 9:11am Start: 12-16-2019 End: 12-17-2019 take 3 mg by mouth once daily Risperidone Discontinued 3 MG PO Daily December 16, 2019 9:25pm December 17, 2019 9:11am Start: 04-20-2019 End: 12-16-2019 take 1 tablet by mouth twice daily Risperidone 2 mg Tablet Discontinued 2 MG PO Twice daily 60 April 19, 2019 11:00pm December 16, 2019 9:25pm Start: 02-03-2019 End: 04-20-2019 take 1 tablet by mouth twice daily Risperidone 1 mg Tablet Discontinued 1 MG PO Twice daily February 02, 2019 11:00pm April 20, 2019 11:29am simvastatin 20 mg oral tablet (10 sources) HMG-CoA Reductase Inhibitor Start: 12-17-2019 End: 07-17-2022 take 1 tablet by mouth at bedtime Simvastatin (Zocor) 20 mg tablet Discontinued 20 MG PO Bedtime December 16, 2019 11:00pm July 17, 2022 10:36pm tamsulosin hydrochloride 0.4 mg oral capsule (17 sources) alpha-Adrenergic Barbara Start: 12-23-2018 End: 12-23-2018 Tamsulosin 0.4 mg capsule Discontinued December 22, 2018 11:00pm December 23, 2018 4:34pm Start: 01-12-2018 End: 12-23-2018 take 1 capsule by mouth once daily Tamsulosin (Flomax) 0.4 mg Capsule,Extended Release 24hr Discontinued 0.4 MG PO Daily January 11, 2018 11:00pm December 23, 2018 4:28pm tiZANidine 4 mg oral capsule (9 sources) Central alpha-2 Adrenergic Agonist Start: 01-01-2017 End: 01-17-2018 take 1 capsule by mouth twice daily Tizanidine 4 mg Capsule Discontinued 4 MG PO Twice daily January 11, 2018 11:00pm January 17, 2018 10:32am traZODone hydrochloride 50 mg oral tablet (20 sources) Serotonin Reuptake Inhibitor Start: 12-16-2019 End: 07-17-2022 take 2 tablets by mouth once daily at bedtime Trazodone 50 mg tablet Discontinued 100 MG PO Daily at bedtime December 16, 2019 9:21pm July 17, 2022 10:36pm Start: 12-16-2019 End: 07-17-2022 take 100 mg by mouth once daily at bedtime Trazodone Discontinued 100 MG PO Daily at bedtime December 16, 2019 9:21pm July 17, 2022 10:36pm Start: 12-27-2018 End: 12-16-2019 take 1 tablet by mouth once daily at bedtime as needed Trazodone 50 mg Tablet Discontinued 50 MG PO Daily at bedtime as needed for Insomnia February 02, 2019 11:00pm April 10, 2019 9:26pm take 1 tablet by hcirag th once daily traZODone (DESYREL) 100 MG tablet Take 1 tablet by mouth nightly 0 Active vancomycin 50 mg/ml injectable solution (8 sources) Glycopeptide Antibacterial Start: 01-17-2018 End: 02-08-2018 take 125 mg by mouth four times daily Vancomycin 5 gram Recon Soln Discontinued 125 MG PO Four times daily January 16, 2018 11:00pm February 08, 2018 9:13pm Start: 01-17-2018 End: 02-09-2018 take 125 mg by mouth four times daily Vancomycin Discontinued 125 MG PO Four times daily 44 January 16, 2018 11:00pm February 08, 2018 9:13pm Problems Active Problems Problem Classification Problem Date Documented Date Episodic/Chronic Acute and unspecified renal failure (1 source) Acute renal failure syndrome; Translations: [Acute kidney failure, unspecified] 12-17-2019 Episodic Acute bronchitis (1 source) Acute bronchitis, unspecified; Translations: [ACUTE BRONCHITIS UNSPECIFIED] Onset: 12-20-2022 Episodic Acute cerebrovascular disease (1 source) Acute cerebrovascular disease Onset: 04-29-2024 Anxiety disorders (1 source) Anxiety disorder, unspecified; Translations: [ANXIETY DISORDER UNSPECIFIED] Onset: 01-21-2023 Chronic Congestive heart failure; nonhypertensive (1 source) Chronic diastolic (congestive) heart failure; Translations: [CHRONIC DIASTOLIC HEART FAILURE] Onset: 01-21-2023 Chronic Coronary atherosclerosis and other heart disease (10 sources) Coronary arteriosclerosis; Translations: [Atherosclerotic heart disease of [place] coronary artery without angina pectoris] Onset: 11-25-2014 [...] Onset: 02-14-2024 Chronic Diabetes mellitus without complication (13 sources) Diabetes mellitus; Translations: [Type 2 diabetes mellitus without complications] Onset: 11-25-2014 12-17-2019 Chronic Disorders of lipid metabolism (8 sources) Hyperlipidemia; Translations: [Hyperlipidemia, unspecified] Onset: 11-25-2014 07-18-2022 Chronic Essential hypertension (15 sources) Hypertensive disorder; Translations: [Essential (primary) hypertension] Onset: 11-25-2014 01-14-2020 Chronic Fluid and electrolyte disorders (8 sources) Hypokalemia; Translations: [Hypokalemia] Onset: 11-15-2022 04-11-2019 Episodic Genitourinary symptoms and ill-defined conditions (6 sources) Frequency of micturition; Translations: [Unspecified symptoms and signs involving the genitourinary system] Onset: 06-21-2022 Episodic Hyperplasia of prostate (7 sources) Benign prostatic hyperplasia; Translations: [Benign prostatic hyperplasia without lower urinary tract symptoms] Onset: 01-21-2023 02-11-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 Hypertension with complications and secondary hypertension (1 source) Hypertensive heart disease with heart failure; Translations: [HTN HEART DISEASE W/HEART FAIL] Onset: 01-21-2023 Chronic Malaise and fatigue (9 sources) Asthenia; Translations: [Weakness] Onset: 06-25-2022 07-17-2022 Episodic Mood disorders (18 sources) Major depressive disorder; Translations: [Severe depressed bipolar I disorder] Onset: 06-25-2022 12-23-2019 Chronic Nonspecific chest pain (6 sources) Chest pain; Translations: [Chest pain, unspecified] 07-17-2022 Episodic Occlusion or stenosis of precerebral arteries (5 sources) Carotid artery stenosis; Translations: [Occlusion and stenosis of unspecified carotid artery] Onset: 11-25-2014 12-26-2016 Chronic Other aftercare (1 source) Other assisted (current) drug therapy; Translations: [OTH THERAPY TECH CURRENT DRUG THERAPY] Onset: 01-21-2023 Episodic Other aftercare (1 source) 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; Translations: [THERAPY TECH 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/ANTIPLAT LETS] Onset: 12-20-2022 Episodic Other circulatory disease (6 sources) Low blood pressure; Translations: [Hypotension, unspecified] 02-09-2018 Episodic Other connective tissue disease (1 source) Arthrodesis status; Translations: [ARTHRODESIS STATUS] Onset: 01-21-2023 Episodic Other hereditary and degenerative nervous system conditions (6 sources) Myoclonus; 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 Other [...] Onset: 10-30-2022 Episodic Other nervous system disorders (4 sources) Disorder of brain; Translations: [Encephalopathy, unspecified] 12-17-2019 Chronic Other nervous system disorders (6 sources) Chronic pain; Translations: [Other chronic pain] Chronic Other nervous system disorders (3 sources) Other chronic pain; Translations: [OTHER CHRONIC PAIN] Onset: 12-20-2022 Chronic Other nervous system disorders (1 source) Difficulty in walking, not elsewhere classified; Translations: [DIFFICULTY IN WALKING NEC] Onset: 08-14-2022 Chronic Other nervous system disorders (6 sources) Ataxia; Translations: [Ataxia, unspecified] 01-13-2018 Episodic [...] 04-30-2024 Episodic Schizophrenia and other psychotic disorders (5 sources) Schizoaffective disorder; Translations: [Schizoaffective disorder, unspecified] 04-11-2019 Chronic Spondylosis; intervertebral disc disorders; other back problems (20 sources) Inflammation of sacroiliac joint; Translations: [Sacroiliitis, not elsewhere classified] Onset: 11-25-2014 Chronic Spondylosis; intervertebral disc disorders; other back problems (20 sources) Backache; Translations: [Dorsalgia, unspecified] Onset: 11-25-2014 12-24-2018 Episodic Substance-related disorders (1 source) Nicotine dependence, cigarettes, uncomplicated; Translations: [NICOTINE DEPEND CIGARETTES UNCOMP] Onset: 08-08-2022 Chronic Suicide and intentional self-inflicted injury (4 sources) Suicidal thoughts; Translations: [Suicidal ideations] 12-17-2019 [...] Onset: 08-08-2022 Episodic Other aftercare (1 source) 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; Translations: [THERAPY TECH CURRENT USE OF ASPIRIN] Onset: 07-20-2022 Episodic [...] [PAIN IN RIGHT KNEE] Onset: 08-10-2022 Episodic Substance-related disorders (2 sources) Other psychoactive [...] Test Name Value Interpretation Reference Range Facility Blood Cultureon 09-09-2024 Bacteria identified Cx Nom (Bld) Gram Stain Gram Positive Cocci in Clusters ORGANISM: Staphylococcus epidermidis (O:STAEPI) Aerobic CASSIE Charge (PCMIC38) SUSCEPTIBILITY ORGANISM: O:STAEPI ANTIBIOTIC INTERPRETATION CASSIE Azithromycin R >4 Ciprofloxacin R >2 Daptomycin S <0.5 Levofloxacin R >4 Linezolid S <1 Oxacillin R >2 Penicillin R >2 Tetracycline S <4 Trimethoprim/Sulfamethoxaz ole S 22/38 Vancomycin S 1 S = SUSCEPTIBLE I = INTERMEDIATE R = RESISTANT BLANK = DATA NOT AVAILABLE, OR DRUG NOT ADVISABLE OR TESTED R* = RESISTANCE DUE TO EXTENDED SPECTRUM BETA-LACTAMASES ESBL = EXTENDED SPECTRUM BETA-LACTAMASE TFG = THYMIDINE-DEPENDENT STRAIN REMY = BETA-LACTAMASE POSITIVE IB = INDUCIBLE BETA-LACTAMASE. APPEARS IN PLACE OF 'S' WITH SPECIES KNOWN TO POSSESS INDUCIBLE BETA-LACTAMASES. POTENTIALLY THEY MAY BECOME RESISTANT TO ALL B-LACTAM DRUGS. PERFORMED BY: [facility] [address] [place] [address] PATHOLOGIST SEPTIC TANK SERVICER MARC VELEZ M.D. Normal [facility] Comment on above: Performed By: #### C UBLD #### [facility] [address] [place] [address] [facility] Office Visiton 03-26-2024 Follow-up visit [id number] Chacho Mcclellan ph J 1955 M [facility] Provider Department Center 03/26/2024 Getachew-MITZY TOVAR CARD [facility] Family History Problem Relation Age of Onset No Known Problems Mother No Known Problems Father Family Status - Relation Status Age at Mother Father Level of Service:51089 [place] OFFICE/OUTPATIENT ESTABLISHED MOD MDM 30 MIN [facility] HPon 02-25-2024 H&P reviewed. The pa freddy was examined and there are no changes to the H&P. [facility] NURSNOTEon 02-25-2024 NURSNOTE RN educated pt on d/ c instructions. RN encouraged pt to voice any questions or concerns. Pt verbalizes no questions or concerns at this time. Pt was wheeled off of unit with all of belongings. [facility] Orders Onlyon 02-20-2024 Orders Only [id number] Chacho Mcclellan ph J 1955 M [facility] Provider Department Center 02/20/2024 ZANDRA TEJADA [facility] ND HeartVAS Family History Problem Relation Age of Onset No Known Problems Mother No Known Problems Father Family Status - Relation Status Age at Mother Father [facility] HPon 02-17-[address] [facility] Cardiology Clinic Note Chief Complaint: New patient here to establish care. Ref from Dr. Reynolds for abnormal stress test. 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 Stress test was ordered [...] catheterization. 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 Normal [facility] Office Visiton 02-17-2024 Follow-up visit [id number] Chacho Mcclellan ph J 1955 M [facility] Provider Department Center 02/17/2024 Getachew-MITZY TOVAR NASRIN [facility] Family History Problem Relation Age of Onset No Known Problems Mother No Known Problems Father Family Status - Relation Status Age at Mother Father Level of Service:49403 [place] OFFICE/OUTPATIENT NEW HIGH MDM 60 MINUTES Normal [facility] Orders Onlyon 02-17-2024 Orders Only [id number] Chacho Mcclellan ph J 1955 M Date Provider Department Center 02/17/2024 DIRK JARA NASRIN [facility] Family History Problem Relation Age of Onset No Known Problems Mother No Known Problems Father Family Status - Relation Status Age at Mother Father Normal [facility] Urinalysis w/ Microon 2023 Bacteria TRACE Abnormal NONE [facility] Comment on above: Performed By: #### U AMIC #### [facility] [address] [place] [address] Functional Director: Sarai Howell MD Bilirubin, SemiQt,Ur Negative Normal NEG [facility] Comment on above: Performed By: #### U AMIC #### [facility] [address] [place] [address] Functional Director: Sarai Howell MD Blood, Urine Negative Normal NEG [facility] Comment on above: Performed By: #### U AMIC #### [facility] [address] [place] [address] Functional Director: Sarai Howell MD Clarity (U) Clear Normal CLEAR [facility] Comment on above: Performed By: #### U AMIC #### [facility] [address] [place] [address] Functional Director: Sarai Howell MD Color (U) Yellow Normal YEL [facility] Comment on above: Performed By: #### U AMIC #### [address] [place], [place] [id number] Functional Director: Sarai Howell MD Epithelial cells LM Ql (Urine sed) 0 TO 2 Normal 0-[address] [facility] Comment on above: Performed By: #### U AMIC #### [facility] [address] [place] [address] Functional Director: Sarai Howell MD Glucose Ql (U) Negative Normal NEG [facility] Comment on above: Performed By: #### U AMIC #### [facility] [address] [place] [address] Functional Director: Sarai Howell MD Ketones Ql (U) Negative Normal NEG [facility] Comment on above: Performed By: #### U AMIC #### [facility] [address] [place], [place] 128[address]83 Functional Director: Sarai Howell MD Leukocyte esterase Test strip Ql (U) Negative Normal NEG [facility] Comment on above: Performed By: #### U AMIC #### [facility] [address] [place], [place] [id number] Functional Director: Sarai Howell MD Mucus Strands TRACE Abnormal NONE [facility] Comment on above: Performed By: #### U AMIC #### [facility] [address] [place], [place] 113[address]83 Functional Director: Sarai Howell MD Nitrite,Ur Negative Normal NEG [facility] Comment on above: Performed By: #### U AMIC #### [facility] [address] [place], [place] [id number] Functional Director: Sarai Howell MD PH,Ur 7.0 Normal 5.0-9.[address] [facility] Comment on above: Performed By: #### U AMIC #### [facility] [address] [place], [place] 140[address]83 Functional Director: Sarai Howell MD Protein Ql (U) Negative Normal NEG [facility] Comment on above: Performed By: #### U AMIC #### [facility] [address] [place] [address] Functional Director: Sarai Howell MD Spec. [place],Ur 1.015 Normal 1.010-1.[address] [facility] Comment on above: Performed By: #### U AMIC #### [facility] [address] [place], [place] 137[address]683 Functional Director: Sarai Howell MD Urine RBC's 0 TO 2 Normal 0-[address] [facility] Comment on above: Performed By: #### U AMIC #### [facility] [address] [place] [address] Functional Director: Sarai Howell MD Urine WBC's 2 TO 5 Normal 0-[address] [facility] Comment on above: Performed By: #### U AMIC #### [facility] [address] [place] [address] Functional Director: Sarai Howell MD Urobilinogen,Ur Normal Normal 0.0-1.[address] [facility] Comment on above: Performed By: #### U AMIC #### [facility] [address] [place] [address] Functional Director: Sarai Howell MD Urinalysis with Microscopico n 11-10-2023 Bacteria LM Ql (Urine sed) TRACE Abnormal None [facility] Bilirubin Ql (U) Negative NEGATIVE [facility] Clarity (U) Clear Clear [facility] Color (U) Yellow Yellow [facility] Epithelial cells LM.HPF (Urine sed) [#/Area] 0 TO 2 [facility] Glucose Test strip (U) [Mass/Vol] Negative NEGATIVE mg/dL [facility] Hemoglobin Auto test strip Ql (U) Negative NEGATIVE [facility] Interpretation and review of laboratory results Abnormal [facility] Ketones (U) [Mass/Vol] Negative NEGAT MELISSA mg/dL [facility] Leukocyte esterase Test strip Ql (U) Negative NEGATIVE [facility] Mucus Ql (Urine sed) TRACE Abnormal None [facility] Nitrite Ql (U) Negative NEGATIVE [facility] pH (U) 7.0 [pH] 5.0 - 9.0 [facility] Protein (U) [Mass/Vol] Negative NEGAT MELISSA mg/dL [facility] RBC LM.HPF (Urine sed) [#/Area] 0 TO 2 [facility] Specific gravity (U) [Rel density] 1.015 1.010 - 1.020 [facility] Urobilinogen Qn (U) Normal 0.0 - 1. 0 EU/dL [facility] WBC LM.HPF (Urine sed) [#/Area] 2 TO 5 [facility] Cult, Bloodon 04-30-2023 Cult, Blood Specimen Description .BLOOD Special Requests lhand, 9ml, 2 bottles Culture NO GROWTH 5 DAYS Report Status FINAL 04/30/2023 [facility] Comment on above: Performed By: #### B CUL2 #### [facility] [address] [place] [address] Functional Director: Sarai Howell MD Cult,Bloodon 04-30-2023 Cult,Blood Specimen Description .BLOOD Special Requests LAC, 20ML Culture NO GROWTH 5 DAYS Report Status FINAL 04/30/2023 [facility] Comment on above: Performed By: #### B C #### [facility] [address] [place] [address] Functional Director: Sarai Howell MD Lipid Profileon 04-26-2023 Cholesterol [Mass/Vol] 171 mg/dL Normal <200 [facility] Comment on above: Result Comment: Cholesterol Guidelines: <200 Desirable 200-240 Borderline >240 Undesirable Performed By: #### L IPR #### [address] [address] Functional Director: Spencer Tapia MD Cholesterol in HDL [Mass/Vol] 30 mg/dL Low >[address] [facility] Comment on above: Result Comment: HDL Guidelines: <40 Undesirable 40-59 Borderline >59 Desirable Performed By: #### L IPR #### [address] [address] Functional Director: Spencer Tapia MD Cholesterol in LDL [Mass/Vol] 112 mg/dL Normal 0-[address] [facility] Comment on above: Result Comment: LDL Guidelines: <100 Desirable 100-129 Near to/above Desirable 130-159 Borderline >159 Undesirable Direct (measured) LDL and calculated LDL are not interchangeable tests. Performed By: #### L IPR #### [address] [address] Functional Director: Spencer Tapia MD Cholesterol.total/Chol esterol in HDL [Mass ratio] 5.7 {ratio} High <[address] [facility] Comment on above: Performed By: #### L IPR #### [facility] [address] [place], [place] [id number] Functional Director: Spencer Tapia MD Triglyceride [Mass/Vol] 143 mg/dL Normal <[address] [facility] Comment on above: Result Comment: Triglyceride Guidelines: <150 Desirable 150-199 Borderline 200-499 High >499 Very high Based on AHA Guidelines for fasting triglyceride, June 2012. Performed By: #### L IPR #### [facility] [address] [place] [address] Functional Director: Spencer Tapia MD Basic Metabolic Profon 04-25 Anion gap [Moles/Vol] 13 mmol/L Normal - [facility] Comment on above: Performed By: #### T ANJALI AYALA, BMP #### [facility] [address] [place], [place] [address] Functional Director: Sarai Howell MD BUN/CRE Ratio 14 Normal 9-[address] [facility] Comment on above: Performed By: #### ANJALI PRADHAN, BMP #### [facility] [address] [place], [place] [id number] Functional Director: Sarai Howell MD Calcium [Mass/Vol] 9.3 mg/dL Normal 8.6-10.[address] [facility] Comment on above: Performed By: #### T ANJALI AYALA, BMP #### [facility] [address] [place], [place] [address]87[address] Functional Director: Sarai Howell MD Chloride [Moles/Vol] 101 mmol/L Normal 98-107 [facility] Comment on above: Performed By: #### ANJALI PRADHAN, BMP #### [facility] [address] [place], [place] [address]676[address] Functional Director: Sarai Howell MD CO2 [Moles/Vol] 25 mmol/L Normal 20-[address] [facility] Comment on above: Performed By: #### T ANJALI AYALA, BMP #### [facility] [address] [place] [address] Functional Director: Sarai Howell MD Creatinine [Mass/Vol] 1.3 mg/dL High 0.7-1.2 [facility] Comment on above: Performed By: #### T ANJALI AYALA, BMP #### [facility] [address] [place] [address] Functional Director: Sarai Howell MD GFR/1.73 sq M.predicted among non-blacks MDRD (S/P/Bld) [Vol rate/Area] mL/min/{1.73_m2} Normal >[address] [facility] Comment on above: Result Comment: These [...] Performed By: #### ANJALI PRADHAN, BMP #### [address] [place] [address] Functional Director: Sarai Howell MD Glucose [Mass/Vol] 87 mg/dL Normal 70-[address] [facility] Comment on above: Performed By: #### T ANJALI AYALA, BMP #### [facility] [address] [place] [address] Functional Director: Sarai Howell MD Potassium [Moles/Vol] 3.9 mmol/L Normal 3.7-5.3 [facility] Comment on above: Performed By: #### ANJALI PRADHAN, BMP #### [facility] [address] [place] [address] Functional Director: Sarai Howell MD Sodium [Moles/Vol] 139 mmol/L Normal 135-[address] [facility] Comment on above: Performed By: #### ANJALI PRADHAN, BMP #### [facility] [address] [place], [place] [address]83 Functional Director: Sarai Howell MD Urea nitrogen [Mass/Vol] 18 mg/dL Normal 8-[address] [facility] Comment on above: Performed By: #### ANJALI PRADHAN, BMP #### [facility] [address] [place], [place] 3653783 Functional Director: Sarai Howell MD CBC with Diffon 04-25-2023 Abs. Basophil 0.04 k/uL Normal 0.00-0.[address] [facility] Comment on above: Performed By: #### ANJALI PRADHAN, BMP #### [address] [place], [facility] Functional Director: Sarai Howell MD Abs.Imm.Granulocyte 0.04 k/uL Normal 0.00-0.[address] [facility] Comment on above: Performed By: #### ANJALI PRADHAN, BMP #### [address] [place], [place] [address]83 Functional Director: Sarai Howell MD Abs.Neutrophil (Seg) 5.64 k/uL Normal 1.50-8.10 [facility] Comment on above: Performed By: #### ANJALI PRADHAN, BMP #### [facility] [address] [place], [place] [address]243[address] Functional Director: Sarai Howell MD Basophils/100 WBC (Bld) 1 % Normal 0-[address] [facility] Comment on above: Performed By: #### ANJALI PRADHAN, BMP #### [facility] [address] [place] [address] Functional Director: Sarai Howell MD Eosinophils (Bld) [#/Vol] 0.09 10*3/uL Normal 0.00-0.[address] [facility] Comment on above: Performed By: #### ANJALI PRADHAN, BMP #### [facility] [address] [place] [address] [place] [address] Functional Director: Sarai Howell MD Eosinophils/100 WBC (Bld) 1 % Normal 1-[address] [facility] Comment on above: Performed By: #### ANJALI PRADHAN, BMP #### [facility] [address] [place] [address] Functional Director: Sarai Howell MD Erythrocyte distribution width (RBC) [Ratio] 15.4 % High 11.8-14.[address] [facility] Comment on above: Performed By: #### ANJALI PRADHAN, BMP #### [address] [place] [address] Functional Director: Sarai Howell MD Hematocrit (Bld) [Volume fraction] 40.6 % Low 40.7-50.[address] [facility] Comment on above: Performed By: #### ANJALI PRADHAN, BMP #### [address] [place] [address] Functional Director: Sarai Howell MD Hemoglobin (Bld) [Mass/Vol] 13.1 g/dL Normal 13.0-17.[address] [facility] Comment on above: Performed By: #### ANJALI PRADHAN, BMP #### [address] [place] [id number] Functional Director: Sarai Howell MD Immature granulocytes/100 WBC (Bld) 1 % High [address] [facility] Comment on above: Performed By: #### ANJALI PRADHAN, BMP #### [address] [place] [id number] Functional Director: Sarai Howell MD Lymphocytes (Bld) [#/Vol] 1.86 10*3/uL Normal 1.10-3.[address] [facility] Comment on above: Performed By: #### ANJALI PRADHAN, BMP #### [facility] [address] [place], [facility] Functional Director: Sarai Howell MD Lymphocytes/100 WBC (Bld) 22 % Low 24-[address] [facility] Comment on above: Performed By: #### ANJALI PRDAHAN, BMP #### [facility] [address] [place], [facility] Functional Director: Sarai Howell MD MCH (RBC) [Entitic mass] 29.0 pg Normal 25.2-33.[address] [facility] Comment on above: Performed By: #### ANJALI PRADHAN, BMP #### [address] [place] [id number] Functional Director: Sarai Howell MD MCHC (RBC) [Mass/Vol] 32.3 g/dL Normal 28.4-34.8 [facility] Comment on above: Performed By: #### ANJALI PRADHAN, BMP #### [address] [place], [facility] Functional Director: Sarai Howell MD MCV (RBC) [Entitic vol] 89.8 fL Normal 82.6-102.[address] [facility] Comment on above: Performed By: #### ANJALI PRADHAN, BMP #### [address] [place], [facility] Functional Director: Sarai Howell MD Monocytes (Bld) [#/Vol] 0.83 10*3/uL Normal 0.10-1.[address] [facility] Comment on above: Performed By: #### ANJALI PRADHAN, BMP #### [facility] [address] [place] [address] Functional Director: Sarai Howell MD Monocytes/100 WBC (Bld) 10 % Normal 3-[address] [facility] Comment on above: Performed By: #### T ANJALI AYALA, BMP #### [facility] [address] [place], [facility] Functional Director: Sarai Howell MD Neutrophil (Seg) 65 % Normal 36-[address] [facility] Comment on above: Performed By: #### T ANJALI AYALA, BMP #### [facility] [address] [place], [facility] Functional Director: Sarai Howell MD NRBC Automated 0.0 per 100 WBC Normal 0.[address] [facility] Comment on above: Performed By: #### T ANJALI AYALA, BMP #### [facility] [address] [place], [facility] Functional Director: Sarai Howell MD Platelet mean volume (Bld) [Entitic vol] 11.9 fL Normal 8.1-13.[address] [facility] Comment on above: Performed By: #### ANJALI PRADHAN, BMP #### [facility] [address] [place], [facility] Functional Director: Sarai Howell MD Platelets (Bld) [#/Vol] 254 10*3/uL Normal 138-[address] [facility] Comment on above: Performed By: #### ANJALI PRADHAN, BMP #### [address] [place], [facility] Functional Director: Sarai Howell MD RBC (Bld) [#/Vol] 4.52 10*6/uL Normal 4.21-5.[address] [facility] Comment on above: Performed By: #### T ANJALI AYALA, BMP #### [facility] [address] [place] [address] Functional Director: Sarai Howell MD WBC (Bld) [#/Vol] 8.5 10*3/uL Normal 3.5-11.[address] [facility] Comment on above: Performed By: #### T ANJALI AYALA, BMP #### [facility] [address] [place] [address] Functional Director: Sarai Howell MD CT HEAD WO CONTRASTon [...] Babs Mae MD 04/25/23 Final result Normal [facility] Flu A/B Ag Detectionon 04-25 Flu A Ag Detection Negative Normal NEG [facility] Comment on above: Result Comment: for Influenza A Antigen Performed By: #### F LUABA #### [facility] [address] [place] [address] Functional Director: Sarai Howell MD Flu B Ag Detection Negative Normal NEG [facility] Comment on above: Result Comment: for Influenza B Antigen. Performed By: #### F LUABA #### [facility] [address] [place] [address] Functional Director: Sarai Howell MD Lactic Acidon 04-25-2023 Lactate [Moles/Vol] 1.3 mmol/L Normal 0.5-2.[address] [facility] Comment on above: Performed By: #### L ACTIC #### [facility] [address] [place] [address] Functional Director: Sarai Howell MD [id number] 04-25-2023 SARS-CoV-2 (COVID-19) RNA JOSÉ MIGUEL+probe Ql (Unsp spec) Not detected Normal NOTDET [facility] Comment on above: Result Comment: Rapid [...] management decisions. Fact sheet for Healthcare Providers: https://www.fda.gov/media/620435/download Fact sheet for Patients: https://www.fda.gov/media/058564/download Methodology: Isothermal Nucleic Acid Amplification Performed By: #### F LUABA #### [facility] [address] [place] [address] Functional Director: Sarai Howell MD Troponinon 04-25-2023 Troponin, High Sens 26 ng/L High 0-[address] [facility] Comment on above: Result Comment: High Sensitivity Troponin values cannot be compared with other Troponin methodologies. Performed By: #### F LUABA #### [facility] [address] [place], [place] [id number] Functional Director: Sarai Howell MD Troponin, High Sens 27 ng/L High 0-[address] [facility] Comment on above: Result Comment: High Sensitivity Troponin values cannot be compared with other Troponin methodologies. Performed By: #### T JAMIE, CDP, BMP #### [facility] [address] [place], [place] [address] Functional Director: Sarai Howell MD UA w/Reflex Cultureon 2022 Bilirubin, SemiQt,Ur SMALL Abnormal NEG [facility] Comment on above: Performed By: #### F LUABA #### [facility] [address] [place] [address] Dr[address] [place], [place] [id number] Functional Director: Sarai Howell MD Blood, Urine 3+ Abnormal NEG [facility] Comment on above: Performed By: #### F LUABA #### [facility] [address] [place], [place] [address] Functional Director: Sarai Howell MD Clarity (U) Cloudy Abnormal CLEAR [facility] Comment on above: Performed By: #### F LUABA #### [facility] [address] [place] [address] [address] [place], [place] [id number] Functional Director: Sarai Howell MD Color (U) Yellow Normal YEL [facility] Comment on above: Performed By: #### F LUABA #### [facility] [address] [place], [place] [id number] Functional Director: Sarai Howell MD Glucose Ql (U) Negative Normal NEG [facility] Comment on above: Performed By: #### F LUABA #### [facility] [address] [place], [place] [address] Functional Director: Sarai Howell MD Ketones Ql (U) 1+ mg/dL Abnormal NEG [facility] Comment on above: Performed By: #### F LUABA #### [facility] [address] [place], [place] [address]83 Functional Director: Sarai Howell MD Leukocyte esterase Test strip Ql (U) TRACE Abnormal NEG [facility] Comment on above: Performed By: #### F LUABA #### [facility] [address] [place], [place] [address] Functional Director: Sarai Howell MD Nitrite,Ur Negative Normal NEG [facility] Comment on above: Performed By: #### F LUABA #### [facility] [address] [place], [place] 160[address]283 Functional Director: Sarai Howell MD PH,Ur 6.0 Normal 5.0-9.[address] [facility] Comment on above: Performed By: #### F LUABA #### [address] [place], [place] [address] Functional Director: Sarai Howell MD Protein Ql (U) 1+ mg/dL Abnormal NEG [facility] Comment on above: Performed By: #### F LUABA #### [address] [place], [place] [address] Functional Director: Sarai Howell MD Spec. [place],Ur >1.030 High 1.010-1.[address] [facility] Comment on above: Performed By: #### F LUABA #### [facility] [address] [place] [address] Dr[address] [place], [place] [id number] Functional Director: Sarai Howell MD Urobilinogen,Ur Normal Normal 0.0-1.[address] [facility] Comment on above: Performed By: #### F LUABA #### [address] [place] [address] Functional Director: Sarai Howell MD Urinalysis,Microon 3 Bacteria 1+ Abnormal NONE [facility] Comment on above: Performed By: #### F LUABA #### [facility] [address] [place] [address] [place] [address] Functional Director: Sarai Howell MD Epithelial cells LM Ql (Urine sed) None Normal 0-[address] [facility] Comment on above: Performed By: #### F LUABA #### [facility] [address] [place] [address] Functional Director: Sarai Howell MD Mucus Strands TRACE Abnormal NONE [facility] Comment on above: Performed By: #### F LUABA #### [facility] [address] [place] [address] Functional Director: Sarai Howell MD Urine RBC's 20 TO 50 Normal 0-[address] [facility] Comment on above: Performed By: #### F LUABA #### [facility] [address] [place], [place] [address] Functional Director: Sarai Howell MD Urine WBC's 2 TO 5 Normal 0-[address] [facility] Comment on above: Performed By: #### F LUABA #### [facility] [address] [place], [place] [address]83 Functional Director: Sarai Howell MD XR CHEST PORTABLEon 04-25-20 [...] Sarai Henson MD 04/25/23 Final result Normal [facility] BNPon 01-17-2023 Natriuretic peptide B (Bld) [Mass/Vol] 210.0 pg/mL Normal <=900.0 [facility] Comment on above: Performed By: #### B CINDER PIT CRANE OPERATOR, CMADM, CMP ####[facility] [address] [place] [address]Dr. Donna Malone CARDIAC MJ ADMITon 023 CK [Catalytic activity/Vol] 67 U/L Normal 39-308 [facility] Comment on above: Performed By: #### B CINDER PIT CRANE OPERATOR, CMADM, CMP ####[facility] [address]rulavxvz[address] [place] [address]Dr. Donna Faisal CK.MB [Mass/Vol] 2.51 ng/mL Normal <=3.60 [facility] Comment on above: Performed By: #### B CINDER PIT CRANE OPERATOR, CMADM, CMP ####[facility] Y[address]xhvvj[address] [place] [address]Dr. Donna Malone HSTROP 9.2 pg/mL Normal 4.0-76.1 [facility] Comment on above: Result Comment: CUT- OFF POINTS HAVE BEEN ESTABLISHED BASED ON THE FOURTH UNIVERSAL DEFINITIONS OF MYOCARDIALINFARCTION. THE UPPER REFERENCE LIMIT (URL) OF TROPONIN, DEFINED THE 99TH PERCENTILE OFcTnI DISTRIBUTION IN A REFERENCE POPULATION, HAS BEEN CONFIRMED THE DECISION THRESHOLDFOR LA DIAGNOSIS. Performed By: #### B CINDER PIT CRANE OPERATOR, CMADM, CMP ####[facility] [address] [place] [address]Dr. Donna Malone BINDU 68 ng/mL Normal 16-96 [facility] Comment on above: Performed By: #### B CINDER PIT CRANE OPERATOR, CMADM, CMP ####[facility] [address]xf[address] [place] [address]Dr. Donna Faisal CBC AUTO DIFFon 01-17-2023 BASO # 0.1 103/ul Normal 0.0-0.1 [facility] Comment on above: Performed By: #### C BC ####[facility] [address] [place] [address]Dr. Donna Faisal Basophils/100 WBC (Bld) 0.8 % Normal 0.2-2.0 [facility] Comment on above: Performed By: #### C BC ####[facility] L[address]mb[address] [place] [address]Dr. Donna Malone EO # 0.1 103/ul Normal 0.0-0.7 [facility] Comment on above: Performed By: #### C BC ####[facility] O[address]uipefew[address] [place] [address]Dr. Donna Malone Eosinophils/100 WBC (Bld) 1.4 % Normal 0.9-7.0 [facility] Comment on above: Performed By: #### C BC ####[facility] [address] [place], [place] [address]Dr. Donna Malone Erythrocyte distribution width (RBC) [Ratio] 14.6 % Normal 11.0-15.0 [facility] Comment on above: Performed By: #### C BC ####[facility] [address] [place], [place] [address]Dr. Donna Malone Hematocrit (Bld) [Volume fraction] 43.9 % Normal 42.0-54.0 [facility] Comment on above: Performed By: #### C BC ####[facility] [address] [place], [place] [address]Dr. Donna Malone Hemoglobin (Bld) [Mass/Vol] 14.2 g/dL Normal 14.0-18.0 [facility] Comment on above: Performed By: #### C BC ####[facility] [address] [place], [place] [address]Dr. Donna Malone IG # 0.04 10e3/ul Critically high 0.00-0.03 [facility] Comment on above: Performed By: #### C BC ####[facility] Qnicxtws[address] [place], [place] [address]Dr. Rubyyvan Malone IG % 0.4 % Normal 0.0-0.5 [facility] Comment on above: Performed By: #### C BC ####[facility] [address] [place], [place] [address]Dr. Donna Malone LYMPH # 2.3 103/ul Normal 1.2-3.8 [facility] Comment on above: Performed By: #### C BC ####[facility] Qpbxfogexu[address] [place] [address]Dr. Donna Malone Lymphocytes/100 WBC (Bld) 25.4 % Normal 20.5-60.0 [facility] Comment on above: Performed By: #### C BC ####[facility] S[address]vfijixy[address] [place] [address]Dr. Donna Malone MANUAL DIFF REQ NO Normal [facility] Comment on above: Performed By: #### C BC ####[facility] T[address]idtdyha[address] [place] [address]Dr. Donna Malone MCH (RBC) [Entitic mass] 29.6 pg Normal 25.9-34.0 [facility] Comment on above: Performed By: #### C BC ####[facility] [address] [place], [place] [address]Dr. Donna Malone MCHC (RBC) [Mass/Vol] 32.3 g/dL Normal 29.9-35.2 [facility] Comment on above: Performed By: #### C BC ####[facility] [address] [place], [place] [address]Dr. Donna Malone MCV (RBC) [Entitic vol] 91.5 fL Normal 80.0-94.0 [facility] Comment on above: Performed By: #### C BC ####[facility] [address] [place], [place] [address]Dr. Donna Malone MONO # 0.7 103/ul Normal 0.3-0.8 [facility] Comment on above: Performed By: #### C BC ####[facility] V[address] [place], [place] [address]Dr. Donna Malone Monocytes/100 WBC (Bld) 7.5 % Normal 1.7-12.0 [facility] Comment on above: Performed By: #### C BC ####[facility] [address] [place], [place] [address]Dr. Donna Malone NEUT # 5.9 103/ul Normal 1.4-6.5 [facility] Comment on above: Performed By: #### C BC ####[facility] [address] [place], [place] [address]Dr. Donna Malone Neutrophils/100 WBC (Bld) 64.5 % Normal 43.0-75.0 [facility] Comment on above: Performed By: #### C BC ####[facility] [address] [place] [address]Dr. Donna Malone Platelet mean volume (Bld) [Entitic vol] 10.6 fL Normal 9.5-13.5 [facility] Comment on above: Performed By: #### C BC ####[facility] [address]zktv[address] [place] [address]Dr. Donna Malone PLT 296 103/ul Normal 150-450 [facility] Comment on above: Performed By: #### C BC ####[facility] Sp[address]ttnxaoi[address] [place] [address]Dr. Donna Malone RBC 4.80 106/ul Normal 4.70-6.10 [facility] Comment on above: Performed By: #### C BC ####[facility] Fad[address]uzi[address] [place] [address]Dr. Donna Malone WBC 9.1 103/ul Normal 4.0-11.0 [facility] Comment on above: Performed By: #### C BC ####[facility] D[address]ovig[address] [place] [address] Donna [address] CT CSPINE WO CONon 3 CT CSPINE WO CON Normal [facility] CT HEAD WO CONon 01-17-2023 CT HEAD WO CON Normal [facility] CT LSPINE WO CONon 3 CT LSPINE WO CON Normal [facility] PROF 14(COMP METB)on 023 Albumin [Mass/Vol] 3.3 g/dL Critically low 3.4-5.0 Th e [facility] Comment on above: Performed By: #### B CINDER PIT CRANE OPERATOR, CMADM, CMP ####[facility] [address]ns[address] [place] [address]Dr. Donna Malone Albumin/Globulin [Mass ratio] 0.8 {ratio} Normal [facility] Comment on above: Performed By: #### B CINDER PIT CRANE OPERATOR, CMADM, CMP ####[facility] [address] [place] [id number]. Donna Malone ALP [Catalytic activity/Vol] 55 U/L Normal 46-116 [facility] Comment on above: Performed By: #### B CINDER PIT CRANE OPERATOR, CMADM, CMP ####[facility] [address]la[address]jmabc[address] [place] [address]Dr. Donna Malone ALT [Catalytic activity/Vol] 15 U/L Critically low 16-63 [facility] Comment on above: Performed By: #### B CINDER PIT CRANE OPERATOR, CMADM, CMP ####[facility] A[address]mnumhs[address] [place] [address]Dr. Donna Malone Anion gap [Moles/Vol] 9.6 mmol/L Normal [facility] Comment on above: Performed By: #### B CINDER PIT CRANE OPERATOR, CMADM, CMP ####[facility] J[address]mauxlh[address] [place] [address]Dr. Donna Malone AST [Catalytic activity/Vol] 14 U/L Critically low 15-37 [facility] Comment on above: Performed By: #### B CINDER PIT CRANE OPERATOR, CMADM, CMP ####[facility] [address]mcw[address] [place] [address]Dr. Donna Malone Bilirubin [Mass/Vol] 0.2 mg/dL Normal 0.2-1.0 [facility] Comment on above: Performed By: #### B CINDER PIT CRANE OPERATOR, CMADM, CMP ####[facility] [address] [place] [address]Dr. Donna Malone Calcium [Mass/Vol] 8.6 mg/dL Normal 8.5-10.1 [facility] Comment on above: Performed By: #### B CINDER PIT CRANE OPERATOR, CMADM, CMP ####[facility] [address]qu[address] [place] [address]Dr. Donna Malone Chloride [Moles/Vol] 107 mmol/L Normal 98-107 [facility] Comment on above: Performed By: #### B CINDER PIT CRANE OPERATOR, CMADM, CMP ####[facility] [address]hordek[address] [place] [address]Dr. Donna Malone CO2 [Moles/Vol] 25.9 mmol/L Normal 21.0-32.0 [facility] Comment on above: Performed By: #### B CINDER PIT CRANE OPERATOR, CMADM, CMP ####[facility] [address]sdjq[address] [place] [address]Dr. Donna Malone Creatinine [Mass/Vol] 1.12 mg/dL Normal 0.70-1.30 [facility] Comment on above: Performed By: #### B CINDER PIT CRANE OPERATOR, CMADM, CMP ####[facility] [address]vb[address]ahcx[address] [place] [address]Dr. Donna Malone EGFR-AF EMIRATI >60 Normal >=60 [facility] Comment on above: Performed By: #### B CINDER PIT CRANE OPERATOR, CMADM, CMP ####[facility] A[address]smvxu[address] [place] [address]Dr. Donna Faisal EGFR-NON AF EMIRATI >60 Normal >=60 [facility] Comment on above: Performed By: #### B CINDER PIT CRANE OPERATOR, CMADM, CMP ####[facility] [address]nevwaze[address] [place] [address]Dr. Donna Faisal Globulin (S) [Mass/Vol] 4.2 g/dL Normal [facility] Comment on above: Performed By: #### B CINDER PIT CRANE OPERATOR, CMADM, CMP ####[facility] Ixzzsqhvsh[address] [place] [address]Dr. Donna Malone Glucose [Mass/Vol] 163 mg/dL Critically high 74-106 T [facility] Comment on above: Performed By: #### B CINDER PIT CRANE OPERATOR, CMADM, CMP ####[facility] Tmjyhwrgyo[address] [place] [address]Dr. Donna Malone Potassium [Moles/Vol] 4.5 mmol/L Normal 3.5-5.1 [facility] Comment on above: Performed By: #### B CINDER PIT CRANE OPERATOR, CMADM, CMP ####[facility] Mjsmizdipi[address] [place] [address]Dr. Donna Faisal Protein [Mass/Vol] 7.5 g/dL Normal 6.4-8.2 [facility] Comment on above: Performed By: #### B CINDER PIT CRANE OPERATOR, CMADM, CMP ####[facility] Sidkyogcbl[address] [place] [address]Dr. Donna Malone Sodium [Moles/Vol] 138 mmol/L Normal 136-145 [facility] Comment on above: Performed By: #### B CINDER PIT CRANE OPERATOR, CMADM, CMP ####[facility] Hwwttqxamy37[address] [place] [address]Dr. Donna Malone Urea nitrogen [Mass/Vol] 11.0 mg/dL Normal 7.0-18.0 [facility] Comment on above: Performed By: #### B CINDER PIT CRANE OPERATOR, CMADM, CMP ####[facility] Ibsyllpyak[address] [place] [address]Dr. Donna Malone Urea nitrogen/Creatinine [Mass ratio] 9.8 mg/mg Normal [facility] Comment on above: Performed By: #### B CINDER PIT CRANE OPERATOR, SAL, CMP ####[facility] [address]xt[address] [place], [place] [address]Dr. Donna Malone PROTIMEon 01-17-2023 INR Coag (PPP) [Relative time] 0.94 {INR} Normal [facility] Comment on above: Performed By: #### P TT, PT ####[facility] [address] [place] [address]Dr. Donna Malone INR GUIDELINES SEE BELOW Normal [facility] Comment on above: Result Comment: FLORESITA RED INR: 2.0 - 3.0 CONDITIONS NOT LISTED BELOW 2.5 - 3.5 FOR PROSTHETIC HEART VALVE REPLACEMENT 2.5 - 3.5 RECURRENT THROMBOSIS Performed By: #### P TT, PT ####[facility] [address]rgse[address] [place] [address]Dr. Donna Malone PT Coag (PPP) [Time] 10.0 s Normal 9.0-11.6 [facility] Comment on above: Performed By: #### P TT, PT ####[facility] Ij[address] [place], [place] [address]Dr. Donna Malone PTTon 01-17-2023 aPTT Coag (Bld) [Time] 29.6 s Normal 22.3-36.2 [facility] Comment on above: Performed By: #### P TT, PT ####[facility] [address] [place] [id number]. Donna Faisal CBC AUTO DIFFon 11-17-2022 BASO # 0.0 103/ul Normal 0.0-0.1 [facility] Comment on above: Performed By: #### C BC ####[facility] Cvsvjhopeo04[address] [place] [id number]. Donna Malone Basophils/100 WBC (Bld) 0.2 % Normal 0.2-2.0 [facility] Comment on above: Performed By: #### C BC ####[facility] [address]fc[address] [place], [place] [address]Dr. Donna Malone EO # 0.0 103/ul Normal 0.0-0.7 [facility] Comment on above: Performed By: #### C BC ####[facility] [address]oumjq[address] [place], [place] [address]Dr. oDnna Malone Eosinophils/100 WBC (Bld) 0.0 % Critically low 0.9-7.0 [facility] Comment on above: Performed By: #### C BC ####[facility] [address]wp[address] [place], [place] [address]Dr. Rubyyvan Malone Erythrocyte distribution width (RBC) [Ratio] 14.5 % Normal 11.0-15.0 [facility] Comment on above: Performed By: #### C BC ####[facility] [address] [place], [place] [address]Dr. Donna Malone Hematocrit (Bld) [Volume fraction] 39.6 % Critically low 42.0-54.0 [facility] Comment on above: Performed By: #### C BC ####[facility] [address]efxacmqr[address] [place], [place] [address]Dr. Donna Malone Hemoglobin (Bld) [Mass/Vol] 13.3 g/dL Critically low 14.0-18.0 [facility] Comment on above: Performed By: #### C BC ####[facility] [address]iuvle[address] [place], [place] [address]Dr. Donna Malone IG # 0.06 10e3/ul Critically high 0.00-0.03 [facility] Comment on above: Performed By: #### C BC ####[facility] F[address]awfidcxe[address] [place] [address]Dr. Donna Malone IG % 0.5 % Normal 0.0-0.5 [facility] Comment on above: Performed By: #### C BC ####[facility] F[address]fpgxo[address] [place] [address]Dr. Donna Malone LYMPH # 1.0 103/ul Critically low 1.2-3.8 [facility] Comment on above: Performed By: #### C BC ####[facility] Flpriunrwm4212 [place] [address]Dr. Rubyyvan Malone Lymphocytes/100 WBC (Bld) 8.3 % Critically low 20.5-60.0 [facility] Comment on above: Performed By: #### C BC ####[facility] [address] [place], [place] [address]Dr. Donna Malone MANUAL DIFF REQ NO Normal [facility] Comment on above: Performed By: #### C BC ####[facility] [address]wqm[address] [place], [place] [address]Dr. Donna Malone MCH (RBC) [Entitic mass] 29.4 pg Normal 25.9-34.0 [facility] Comment on above: Performed By: #### C BC ####[facility] B[address]dhsbukh[address] [place] [address]Dr. Donna Malone MCHC (RBC) [Mass/Vol] 33.6 g/dL Normal 29.9-35.2 [facility] Comment on above: Performed By: #### C BC ####[facility] Glkpdtqama[address] [place] [address]Dr. Donna Malone MCV (RBC) [Entitic vol] 87.6 fL Normal 80.0-94.0 [facility] Comment on above: Performed By: #### C BC ####[facility] [address] [place], [place] [address]Dr. Donna Malone MONO # 0.8 103/ul Normal 0.3-0.8 [facility] Comment on above: Performed By: #### C BC ####[facility] [address] [place] [id number]. Donna Malone Monocytes/100 WBC (Bld) 6.6 % Normal 1.7-12.0 [facility] Comment on above: Performed By: #### C BC ####[facility] [address]oktfi[address] [place] [id number]. Donna Malone NEUT # 10.2 103/ul Critically high 1.4-6.5 [facility] Comment on above: Performed By: #### C BC ####[facility] A[address]qdzwg8[address] [place] [id number]. Donna Malone Neutrophils/100 WBC (Bld) 84.4 % Critically high 43.0-75.0 [facility] Comment on above: Performed By: #### C BC ####[facility] Lovhtlyzlm[address] [place] [address]Dr. Donna Malone Platelet mean volume (Bld) [Entitic vol] 11.5 fL Normal 9.5-13.5 [facility] Comment on above: Performed By: #### C BC ####[facility] Rwhfuwwnmz24[address] [place] [address]Dr. Donna Malone PLT 204 103/ul Normal 150-450 [facility] Comment on above: Performed By: #### C BC ####[facility] Ygbvozrrgl80[address] [place] [id number]. Donna Malone RBC 4.52 106/ul Critically low 4.70-6.10 [facility] Comment on above: Performed By: #### C BC ####[facility] Tsmtgwkych6756 [place] [id number]. Donna Malone WBC 12.0 103/ul Critically high 4.0-11.0 [facility] Comment on above: Performed By: #### C BC ####[facility] [address] [place], [place] [address]Dr. Donna Malone MAGNESIUMon 11-17-2022 Magnesium [Mass/Vol] 1.9 mg/dL Normal 1.8-2.4 [facility] Comment on above: Performed By: #### C MP, MG ####[facility] [address]pxhfwvv[address] [place] [address]Dr. Donna Malone PROF 14(COMP METB)on 023 Albumin [Mass/Vol] 3.2 g/dL Critically low 3.4-5.0 [facility] Comment on above: Performed By: #### C MP, MG ####[facility] Hwh[address]zejfsq[address] [place] [address]Dr. Donna Malone Albumin/Globulin [Mass ratio] 1.0 {ratio} Normal [facility] Comment on above: Performed By: #### C MP, MG ####[facility] Tpzzaelhcn[address] [place] [address]Dr. Donna Malone ALP [Catalytic activity/Vol] 51 U/L Normal 46-116 [facility] Comment on above: Performed By: #### C MP, MG ####[facility] Whfgjvkafl[address] [place] [address]Dr. Donna Malone ALT [Catalytic activity/Vol] 16 U/L Normal 16-63 [facility] Comment on above: Performed By: #### C MP, MG ####[facility] Tubtpjgijq[address] [place] [address]Dr. Donna Malone Anion gap [Moles/Vol] 14.7 mmol/L Normal [facility] Comment on above: Performed By: #### C MP, MG ####[facility] Yhghxikpuf[address] [place] [address]Dr. Donna Malone AST [Catalytic activity/Vol] 24 U/L Normal 15-37 [facility] Comment on above: Performed By: #### C MP, MG ####[facility] Xuhhsdqakl[address] [place] [address]Dr. Donna Malone Bilirubin [Mass/Vol] 0.5 mg/dL Normal 0.2-1.0 [facility] Comment on above: Performed By: #### C MP, MG ####[facility] [address]jnevejhb[address] [place] [address]Dr. Donna Malone Calcium [Mass/Vol] 8.6 mg/dL Normal 8.5-10.1 [facility] Comment on above: Performed By: #### C MP, MG ####[facility] [address] [place] [address]Dr. Donna Malone Chloride [Moles/Vol] 108 mmol/L Critically high 98-107 [facility] Comment on above: Performed By: #### C MP, MG ####[facility] Gtovghthvo[address] [place], [place] [address]Dr. Donna Malone CO2 [Moles/Vol] 21.6 mmol/L Normal 21.0-32.0 [facility] Comment on above: Performed By: #### C MP, MG ####[facility] Kllhiomqoy[address] [place], [place] [address]Dr. Donna Malone Creatinine [Mass/Vol] 0.83 mg/dL Normal 0.70-1.30 [facility] Comment on above: Performed By: #### C MP, MG ####[facility] Brfgxnupya13[address] [place], [place] [address]Dr. Donna Malone EGFR-AF EMIRATI >60 Normal >=60 [facility] Comment on above: Performed By: #### C MP, MG ####[facility] Vqhpuheuyf[address] [place], [place] [address]Dr. Donna Malone EGFR-NON AF EMIRATI >60 Normal >=60 [facility] Comment on above: Performed By: #### C MP, MG ####[facility] Rngoktypyk98[address] [place], [place] [address]Dr. Donna Malone Globulin (S) [Mass/Vol] 3.2 g/dL Normal [facility] Comment on above: Performed By: #### C MP, MG ####[facility] Yjwmgwquwt[address] [place], [place] [address]Dr. Donna Faisal Glucose [Mass/Vol] 162 mg/dL Critically high 74-106 [facility] Comment on above: Performed By: #### C MP, MG ####[facility] Cuplzqpcey2325[address] [place], [place] [address]Dr. Donna Malone Potassium [Moles/Vol] 3.3 mmol/L Critically low 3.5-5.1 [facility] Comment on above: Performed By: #### C MP, MG ####[facility] Fltftzaimx[address] [place], [place] [address]Dr. Donna Malone Protein [Mass/Vol] 6.4 g/dL Normal 6.4-8.2 [facility] Comment on above: Performed By: #### C MP, MG ####[facility] Ubxwnhgxma4327[address] [place], [place] [address]Dr. Donna Faisal Sodium [Moles/Vol] 141 mmol/L Normal 136-145 [facility] Comment on above: Performed By: #### C MP, MG ####[facility] Jubbnlkbrb5[address] [place], [place] [address]Dr. Donna Faisal Urea nitrogen [Mass/Vol] 12.0 mg/dL Normal 7.0-18.0 [facility] Comment on above: Performed By: #### C MP, MG ####[facility] Rzqcgjfucx62[address] [place], [place] [address]Dr. Donna Faisal Urea nitrogen/Creatinine [Mass ratio] 14.5 mg/mg Normal [facility] Comment on above: Performed By: #### C MP, MG ####[facility] Dupaqxlnun3584[address] [place], [place] [address]Dr. Donna Faisal AMMONIAon 11-16-2022 Ammonia (P) [Mass/Vol] ug/dL Critically low 11-32 [facility] Comment on above: Performed By: #### A MM ####[facility] Hnejpyhunb00[address] [place], [place] [address]Dr. Donna Faisal CBC AUTO DIFFon 11-16-2022 BASO # 0.0 103/ul Normal 0.0-0.1 [facility] Comment on above: Performed By: #### C BC ####[facility] Gjdnpockcw[address] [place], [place] [address]Dr. Donna Faisal Basophils/100 WBC (Bld) 0.2 % Normal 0.2-2.0 [facility] Comment on above: Performed By: #### C BC ####[facility] [address] [place] [id number]. Donna Malone EO # 0.0 103/ul Normal 0.0-0.7 [facility] Comment on above: Performed By: #### C BC ####[facility] Idq[address]yixjd[address] [place] [address]Dr. Donna Malone Eosinophils/100 WBC (Bld) 0.0 % Critically low 0.9-7.0 [facility] Comment on above: Performed By: #### C BC ####[facility] U[address]hbrt[address] [place] [address]Dr. Donna Malone Erythrocyte distribution width (RBC) [Ratio] 14.4 % Normal 11.0-15.0 [facility] Comment on above: Performed By: #### C BC ####[facility] Gdtskshoba6[address] [place], [place] [address]Dr. Donna Malone Hematocrit (Bld) [Volume fraction] 38.6 % Critically low 42.0-54.0 [facility] Comment on above: Performed By: #### C BC ####[facility] Ydzelnegaf6[address] [place], [place] [address]Dr. Donna Malone Hemoglobin (Bld) [Mass/Vol] 13.1 g/dL Critically low 14.0-18.0 [facility] Comment on above: Performed By: #### C BC ####[facility] Ucuadcfwom8[address] [place], [place] [address]Dr. Donna Malone IG # 0.05 10e3/ul Critically high 0.00-0.03 [facility] Comment on above: Performed By: #### C BC ####[facility] Ivluhhvbry9986[address] [place], [place] [address]Dr. Rubyyvan Malone IG % 0.5 % Normal 0.0-0.5 [facility] Comment on above: Performed By: #### C BC ####[facility] Jxxtuhkotc64[address] [place], [place] [address]Dr. Rubyyvan Malone LYMPH # 1.0 103/ul Critically low 1.2-3.8 [facility] Comment on above: Performed By: #### C BC ####[facility] Svrqxanyrh[address] [place] [phone]. Donna Malone Lymphocytes/100 WBC (Bld) 10.8 % Critically low 20.5-60.0 [facility] Comment on above: Performed By: #### C BC ####[facility] Jcp[address]huuoj4[address] [place] [phone]. Donna Malone MANUAL DIFF REQ NO Normal [facility] Comment on above: Performed By: #### C BC ####[facility] Tbshnzdrmk4[address] [place] [phone]. Donna Malone MCH (RBC) [Entitic mass] 29.4 pg Normal 25.9-34.0 [facility] Comment on above: Performed By: #### C BC ####[facility] B[address]quonm[address] [place] [address]Dr. Donna Malone MCHC (RBC) [Mass/Vol] 33.9 g/dL Normal 29.9-35.2 [facility] Comment on above: Performed By: #### C BC ####[facility] Akyxoszgcs[address] [place] [phone]. Donna Malone MCV (RBC) [Entitic vol] 86.7 fL Normal 80.0-94.0 [facility] Comment on above: Performed By: #### C BC ####[facility] [address]df[address] [place] [phone]. Donna Faisal MONO # 0.4 103/ul Normal 0.3-0.8 [facility] Comment on above: Performed By: #### C BC ####[facility] Ui[address]svqx4[address] [place] [phone]. Donna Malone Monocytes/100 WBC (Bld) 4.4 % Normal 1.7-12.0 [facility] Comment on above: Performed By: #### C BC ####[facility] W[address]abw4[address] [place] [phone]. Donna Malone NEUT # 7.9 103/ul Critically high 1.4-6.5 [facility] Comment on above: Performed By: #### C BC ####[facility] Xlcwngbhtv5[address] [place] [phone]. Donna Malone Neutrophils/100 WBC (Bld) 84.1 % Critically high 43.0-75.0 The [facility] Comment on above: Performed By: #### C BC ####[facility] T[address]afkboi[address] [place] [phone]. Donna Malone Platelet mean volume (Bld) [Entitic vol] 11.3 fL Normal 9.5-13.5 [facility] Comment on above: Performed By: #### C BC ####[facility] [address]uf[address] [place] [phone]. Donna Malone PLT 201 103/ul Normal 150-450 [facility] Comment on above: Performed By: #### C BC ####[facility] Qftwhknvvc[address] [place] [phone]. Donna Malone RBC 4.45 106/ul Critically low 4.70-6.10 [facility] Comment on above: Performed By: #### C BC ####[facility] L[address]wic[address] [place] [address]Dr. Donna Malone WBC 9.3 103/ul Normal 4.0-11.0 [facility] Comment on above: Performed By: #### C BC ####[facility] Z[address]ygcd[address] [place] [address]Dr. Donna Malone GLYCOHEMOGLOBIN A1Con 2022 ADA RECOMMENDATION SEE BELOW Normal The [facility] Comment on above: Result Comment: ADA RECOMMENDED LIMIT 4.0 - 6.0 ADA THERAPEUTIC TARGET < 7.0 ACTION SUGGESTED > 7.0 Performed By: #### A 1C ####[facility] K[address]ls[address]lp[address] [place] [address]Dr. Donna Malone Glucose [Mass/Vol] 128 mg/dL Normal [facility] Comment on above: Performed By: #### A 1C ####[facility] Lipgivubgd[address] [place] [phone]. Donna Malone HbA1c (Bld) [Mass fraction] 6.1 % Normal 4.5-6.2 [facility] Comment on above: Performed By: #### A 1C ####[facility] [address]lr[address] [place] [address]Dr. Donna Malone MAGNESIUMon 11-16-2022 Magnesium [Mass/Vol] 1.8 mg/dL Normal 1.8-2.4 [facility] Comment on above: Performed By: #### C MP, MG ####[facility] Y[address]ozmmguy[address] [place] [address]Dr. Donna Malone POINT OF CARE GLUCOSEon 11-07 Glucose [Mass/Vol] 170 mg/dL Critically high 74-106 [facility] Comment on above: Performed By: #### P OCGLUC ####[facility] Awkxhbsuvb[address] [place], [place] [address]Dr. Donna Malone Glucose [Mass/Vol] 158 mg/dL Critically high 74-106 [facility] Comment on above: Performed By: #### P OCGLUC ####[facility] Hvuxokkfyf26[address] [place], [place] [address]Dr. Donna Malone Glucose [Mass/Vol] 176 mg/dL Critically high 74-106 [facility] Comment on above: Performed By: #### P OCGLUC ####[facility] Nmkibumumm2882[address] [place], [place] [address]Dr. Donna Malone PROF 14(COMP METB)on 023 Albumin [Mass/Vol] 3.1 g/dL Critically low 3.4-5.0 [facility] Comment on above: Performed By: #### C MP, MG ####[facility] T[address]toqfm[address] [place] [address]Dr. Donna Malone Albumin/Globulin [Mass ratio] 0.9 {ratio} Normal [facility] Comment on above: Performed By: #### C MP, MG ####[facility] Qajoiosrdy[address] [place] [address]Dr. Donna Malone ALP [Catalytic activity/Vol] 52 U/L Normal 46-116 [facility] Comment on above: Performed By: #### C MP, MG ####[facility] Fzdqbqhwrh64[address] [place], [place] [address]Dr. Donna Malone ALT [Catalytic activity/Vol] 13 U/L Critically low 16-63 [facility] Comment on above: Performed By: #### C MP, MG ####[facility] Nlfjlmlqvy[address] [place], [place] [address]Dr. Donna Malone Anion gap [Moles/Vol] 15.7 mmol/L Normal Th e [facility] Comment on above: Performed By: #### C MP, MG ####[facility] Wcwzklagys0384[address] [place], [place] [address]Dr. Donna Malone AST [Catalytic activity/Vol] 16 U/L Normal 15-37 [facility] Comment on above: Performed By: #### C MP, MG ####[facility] Ljrcolyiyz4[address] [place], [place] [address]Dr. Donna Malone Bilirubin [Mass/Vol] 0.5 mg/dL Normal 0.2-1.0 The [facility] Comment on above: Performed By: #### C MP, MG ####[facility] Nvcadxelto44[address] [place], [place] [address]Dr. Donna Malone Calcium [Mass/Vol] 8.6 mg/dL Normal 8.5-10.1 [facility] Comment on above: Performed By: #### C MP, MG ####[facility] Dojthbzwog01[address] [place], [place] [address]Dr. Donna Malone Chloride [Moles/Vol] 109 mmol/L Critically high 98-107 [facility] Comment on above: Performed By: #### C MP, MG ####[facility] Fousndvnyf7256[address] [place], [place] [address]Dr. Donna Malone CO2 [Moles/Vol] 21.7 mmol/L Normal 21.0-32.0 [facility] Comment on above: Performed By: #### C MP, MG ####[facility] Vphyrnapdl5[address] [place], [place] [address]Dr. Donna Malone Creatinine [Mass/Vol] 0.99 mg/dL Normal 0.70-1.30 [facility] Comment on above: Performed By: #### C MP, MG ####[facility] F[address]ifx[address] [place] [address]Dr. Donna Malone EGFR-AF EMIRATI >60 Normal >=60 [facility] Comment on above: Performed By: #### C MP, MG ####[facility] Smiwqxfaip[address] [place], [place] [address]Dr. Donna Malone EGFR-NON AF EMIRATI >60 Normal >=60 [facility] Comment on above: Performed By: #### C MP, MG ####[facility] Kjzrkcnhil2003[address] [place], [place] [address]Dr. Donna Malone Globulin (S) [Mass/Vol] 3.3 g/dL Normal [facility] Comment on above: Performed By: #### C MP, MG ####[facility] Osbvyhlllo[address] [place], [place] [address]Dr. Donna Malone Glucose [Mass/Vol] 168 mg/dL Critically high 74-106 [facility] Comment on above: Performed By: #### C MP, MG ####[facility] Urqazskksq6689[address] [place], [place] [address]Dr. Donna Malone Potassium [Moles/Vol] 3.4 mmol/L Critically low 3.5-5.1 [facility] Comment on above: Performed By: #### C MP, MG ####[facility] Ihiqezhbig8327[address] [place], [place] [address]Dr. Donna Malone Protein [Mass/Vol] 6.4 g/dL Normal 6.4-8.2 [facility] Comment on above: Performed By: #### C MP, MG ####[facility] Kbdaauttmy79[address] [place], [place] [address]Dr. Donna Malone Sodium [Moles/Vol] 143 mmol/L Normal 136-145 [facility] Comment on above: Performed By: #### C MP, MG ####[facility] Sjuzubcdod[address] [place], [place] [address]Dr. Donna Malone Urea nitrogen [Mass/Vol] 9.0 mg/dL Normal 7.0-18.0 [facility] Comment on above: Performed By: #### C MP, MG ####[facility] Gdvqpktntv7601[address] [place], [place] [address]Dr. Rubyyvan Malone Urea nitrogen/Creatinine [Mass ratio] 9.1 mg/mg Normal [facility] Comment on above: Performed By: #### C MP, MG ####[facility] Tscnjvxrsg[address] [place], [place] [address]Dr. Rubyyvan Malone XR CHEST 2 Von 11-16-2022 XR CHEST 2 V Normal [facility] AMMONIAon 11-15-2022 Ammonia (P) [Moles/Vol] 20 umol/L Normal 11-32 [facility] Comment on above: Performed By: #### A MM ####[facility] Ndeecskadv[address] [place], [place] [address]Dr. Donna Malone CBC AUTO DIFFon 11-15-2022 BASO # 0.0 103/ul Normal 0.0-0.1 [facility] Comment on above: Performed By: #### C BC ####[facility] Mmuzszubgh16[address] [place], [place] [address]Dr. Donna Malone Basophils/100 WBC (Bld) 0.5 % Normal 0.2-2.0 [facility] Comment on above: Performed By: #### C BC ####[facility] Yyibiweqqr8766[address] [place], [place] [address]Dr. Donna Malone EO # 0.1 103/ul Normal 0.0-0.7 [facility] Comment on above: Performed By: #### C BC ####[facility] Pjcxwrwrqk30[address] [place], [place] [address]Dr. Donna Malone Eosinophils/100 WBC (Bld) 1.4 % Normal 0.9-7.0 [facility] Comment on above: Performed By: #### C BC ####[facility] Uugdmihvdo3087[address] [place], [place] [address]Dr. Donna Malone Erythrocyte distribution width (RBC) [Ratio] 14.6 % Normal 11.0-15.0 [facility] Comment on above: Performed By: #### C BC ####[facility] Yvtaqyylld[address] [place], [place] [address]Dr. Donna Malone Hematocrit (Bld) [Volume fraction] 36.8 % Critically low 42.0-54.0 [facility] Comment on above: Performed By: #### C BC ####[facility] Minhjgledl64[address] [place] [address]DrElizabeth Malone Hemoglobin (Bld) [Mass/Vol] 12.1 g/dL Critically low 14.0-18.0 [facility] Comment on above: Performed By: #### C BC ####[facility] Ftrtfuqtss16[address] [place], [place] [address]DrElizabeth Malone IG # 0.01 10e3/ul Normal 0.00-0.03 [facility] Comment on above: Performed By: #### C BC ####[facility] Artavdibva8[address] [place], [place] [address]DrElizabeth Malone IG % 0.2 % Normal 0.0-0.5 [facility] Comment on above: Performed By: #### C BC ####[facility] Pbtqdcgcab18[address] [place], [place] [address]DrElizabeth Malone LYMPH # 1.7 103/ul Normal 1.2-3.8 [facility] Comment on above: Performed By: #### C BC ####[facility] Oelfaacbrc[address] [place], [place] [address]DrElizabeth Malone Lymphocytes/100 WBC (Bld) 27.0 % Normal 20.5-60.0 [facility] Comment on above: Performed By: #### C BC ####[facility] Dfdkesblkr95[address] [place], [place] [address]DrElizabeth Malone MANUAL DIFF REQ NO Normal [facility] Comment on above: Performed By: #### C BC ####[facility] Kbqfuuhbac[address] [place], [place] [address]DrElizabeth Malone MCH (RBC) [Entitic mass] 29.5 pg Normal 25.9-34.0 [facility] Comment on above: Performed By: #### C BC ####[facility] Krmruoxhhg20[address] [place], [place] [address]DrElizabeth Malone MCHC (RBC) [Mass/Vol] 32.9 g/dL Normal 29.9-35.2 [facility] Comment on above: Performed By: #### C BC ####[facility] V[address]fxtjcxa[address] [place] [address]DrElizabeth Donna Faisal MCV (RBC) [Entitic vol] 89.8 fL Normal 80.0-94.0 [facility] Comment on above: Performed By: #### C BC ####[facility] Lenndgzykn[address] [place] [address]DrElizabeth Beltranyvan Faisal MONO # 0.4 103/ul Normal 0.3-0.8 [facility] Comment on above: Performed By: #### C BC ####[facility] Bcpfklbwiw95[address] [place] [address]DrElizabeth Malone Monocytes/100 WBC (Bld) 6.7 % Normal 1.7-12.0 [facility] Comment on above: Performed By: #### C BC ####[facility] Jrkyhtndcx89[address] [place], [place] [address]DrElizabeth Malone NEUT # 4.0 103/ul Normal 1.4-6.5 [facility] Comment on above: Performed By: #### C BC ####[facility] Tistssgymo[address] [place], [place] [address]DrElizabeth Rubyyvan Malone Neutrophils/100 WBC (Bld) 64.2 % Normal 43.0-75.0 [facility] Comment on above: Performed By: #### C BC ####[facility] Ijlsgsosvt99[address] [place] [address]DrElizabeth Malone Platelet mean volume (Bld) [Entitic vol] 11.3 fL Normal 9.5-13.5 [facility] Comment on above: Performed By: #### C BC ####[facility] Dvlavtbfyd04[address] [place] [address]DrElizabeth Malone PLT 169 103/ul Normal 150-450 [facility] Comment on above: Performed By: #### C BC ####[facility] Oesbaoybkl37[address] [place] [phone] Malone RBC 4.10 106/ul Critically low 4.70-6.10 [facility] Comment on above: Performed By: #### C BC ####[facility] Vkeapveqtu[address] [place] [address]Dr. Donna Malone WBC 6.3 103/ul Normal 4.0-11.0 [facility] Comment on above: Performed By: #### C BC ####[facility] Tefglyctyo[address] [place] [address]Dr. Donna Malone GLYCOHEMOGLOBIN A1Con 2022 ADA RECOMMENDATION SEE BELOW Normal [facility] Comment on above: Result Comment: ADA RECOMMENDED LIMIT 4.0 - 6.0 ADA THERAPEUTIC TARGET < 7.0 ACTION SUGGESTED > 7.0 Performed By: #### A 1C ####[facility] Twwoutqpiw8[address] [place], [place] [address]Dr. Donna Malone Glucose [Mass/Vol] 128 mg/dL Normal [facility] Comment on above: Performed By: #### A 1C ####[facility] Nmmiixfazm0[address] [place], [place] [address]Dr. Donna Malone HbA1c (Bld) [Mass fraction] 6.1 % Normal 4.5-6.2 [facility] Comment on above: Performed By: #### A 1C ####[facility] Nvnqfhkvce69[address] [place], [place] [address]Dr. Donna Malone MAGNESIUMon 11-15-2022 Magnesium [Mass/Vol] 1.6 mg/dL Critically low 1.8-2.4 [facility] Comment on above: Performed By: #### C MP, MG ####[facility] Fadpilnnzx13[address] [place], [place] [address]Dr. Donna Malone POINT OF CARE GLUCOSEon Glucose [Mass/Vol] 165 mg/dL Critically high 74-106 [facility] Comment on above: Performed By: #### P OCGLUC ####[facility] Wh[address]fbizhwh[address] [place] [address]Dr. Donna Malone Glucose [Mass/Vol] 155 mg/dL Critically high 74-106 [facility] Comment on above: Performed By: #### P OCGLUC ####[facility] Xkjfpvhumw9819 [place] [id number]. Donna Malone Glucose [Mass/Vol] 111 mg/dL Critically high 74-106 [facility] Comment on above: Performed By: #### P OCGLUC ####[facility] Njgebuyijw17[address] [place] [address]Dr. Donna Malone PROF 14(COMP METB)on 023 Albumin [Mass/Vol] 2.9 g/dL Critically low 3.4-5.0 [facility] Comment on above: Performed By: #### C MP, MG ####[facility] Ayimonctvp[address] [place] [address]Dr. Donna Malone Albumin/Globulin [Mass ratio] 1.0 {ratio} Normal [facility] Comment on above: Performed By: #### C MP, MG ####[facility] Xvrkocokrx24[address] [place] [address]Dr. Donna Malone ALP [Catalytic activity/Vol] 38 U/L Critically low 46-116 [facility] Comment on above: Performed By: #### C MP, MG ####[facility] Thvvfrwvkx35[address] [place] [address]Dr. Donna Malone ALT [Catalytic activity/Vol] 13 U/L Critically low 16-63 [facility] Comment on above: Performed By: #### C MP, MG ####[facility] Vwjcpbjtcs5[address] [place] [address]Dr. Donna Malnoe Anion gap [Moles/Vol] 11.8 mmol/L Normal [facility] Comment on above: Performed By: #### C MP, MG ####[facility] Eyplbgpuxr6[address] [place] [address]Dr. Donna Malone AST [Catalytic activity/Vol] 15 U/L Normal 15-37 [facility] Comment on above: Performed By: #### C MP, MG ####[facility] Ejnkwebpgp3994 [place] [address]Dr. Donna Malone Bilirubin [Mass/Vol] 0.4 mg/dL Normal 0.2-1.0 [facility] Comment on above: Performed By: #### C MP, MG ####[facility] Higknhygok[address] [place] [address]Dr. Donna Malone Calcium [Mass/Vol] 8.2 mg/dL Critically low 8.5-10.1 Th e [facility] Comment on above: Performed By: #### C MP, MG ####[facility] Uurgnzdkwz8648 [place] [address]Dr. Donna Malone Chloride [Moles/Vol] 111 mmol/L Critically high 98-107 [facility] Comment on above: Performed By: #### C MP, MG ####[facility] Zhelivyles[address] [place], [place] [address]Dr. Donna Malone CO2 [Moles/Vol] 27.9 mmol/L Normal 21.0-32.0 [facility] Comment on above: Performed By: #### C MP, MG ####[facility] Sritckqhhm[address] [place], [place] [address]Dr. Donna Malone Creatinine [Mass/Vol] 0.99 mg/dL Normal 0.70-1.30 [facility] Comment on above: Performed By: #### C MP, MG ####[facility] Dlsoahizct[address] [place], [place] [address]Dr. Donna Malone EGFR-AF EMIRATI >60 Normal >=60 [facility] Comment on above: Performed By: #### C MP, MG ####[facility] Mcpsbtfrdt[address] [place], [place] [address]Dr. Donna Malone EGFR-NON AF EMIRATI >60 Normal >=60 [facility] Comment on above: Performed By: #### C MP, MG ####[facility] Ipbgdpzaqn26[address] [place], [place] [address]Dr. Donna Malone Globulin (S) [Mass/Vol] 2.9 g/dL Normal [facility] Comment on above: Performed By: #### C MP, MG ####[facility] Heebcinfck[address] [place], [place] [address]Dr. Donna Malone Glucose [Mass/Vol] 88 mg/dL Normal 74-106 [facility] Comment on above: Performed By: #### C MP, MG ####[facility] [address]osvrj[address] [place] [address]Dr. Donna Malone Potassium [Moles/Vol] 3.7 mmol/L Normal 3.5-5.1 [facility] Comment on above: Performed By: #### C MP, MG ####[facility] Tywwlnncsf17[address] [place] [address]Dr. Donna Malone Protein [Mass/Vol] 5.8 g/dL Critically low 6.4-8.2 [facility] Comment on above: Performed By: #### C MP, MG ####[facility] Gkaaesgzrz75[address] [place] [address]Dr. Rubyyvan Malone Sodium [Moles/Vol] 147 mmol/L Critically high 136-145 T [facility] Comment on above: Performed By: #### C MP, MG ####[facility] Jkllkwjmkk[address] [place], [place] [address]Dr. Donna Malone Urea nitrogen [Mass/Vol] 12.0 mg/dL Normal 7.0-18.0 [facility] Comment on above: Performed By: #### C MP, MG ####[facility] Odrwliovbt[address] [place], [place] [address]Dr. Donna Malone Urea nitrogen/Creatinine [Mass ratio] 12.1 mg/mg Normal [facility] Comment on above: Performed By: #### C MP, MG ####[facility] Urodkdynpi4[address] [place], [place] [address]Dr. Donna Malone ACETONE SERUMon 11-14-2022 ACETONE Negative Normal NEGATIVE [facility] Comment on above: Performed By: #### A CETON ####[facility] Vloanavoqa9[address] [place], [place] [address]Dr. Rubyyvan Faisal AMMONIAon 11-14-2022 Ammonia (P) [Moles/Vol] 17 umol/L Normal 11-32 [facility] Comment on above: Performed By: #### A MM ####[facility] Dgymbiutmx[address] [place], [place] [address]Dr. Donna Malone BLOOD GASES BTYon 11-14-2022 02 MODE ROOM AIR Normal [facility] Comment on above: Performed By: #### A BG ####[facility] Soxlbvoggs[address] [place] [address]Dr. Donna Malone ALLENS TEST Positive [facility] Comment on above: Performed By: #### A BG ####[facility] Fdmxsbczry5[address] [place] [address]Dr. Donna Malone Base excess Calc (Bld) [Moles/Vol] 1.1 mmol/L Normal -2.0-2.0 [facility] Comment on above: Performed By: #### A BG ####[facility] Qcdvjwisvc8[address] [place], [place] [address]Dr. Donna Malone BIPAP PRESSURE [facility] Comment on above: Performed By: #### A BG ####[facility] Frccfsezko64[address] [place], [place] [address]Dr. Donna Malone CPAP [facility] Comment on above: Performed By: #### A BG ####[facility] Pfctwypfer42[address] [place], [place] [address]Dr. Donna Malone FIO2 [facility] Comment on above: Performed By: #### A BG ####[facility] Jvpinhumlt8202[address] [place], [place] [address]Dr. Donna Malone HCO3 (Bld) [Moles/Vol] 26.0 mmol/L Normal 22.0-26.0 [facility] Comment on above: Performed By: #### A BG ####[facility] Optlxdanso06[address] [place], [place] [address]Dr. Donna Malone LPM [facility] Comment on above: Performed By: #### A BG ####[facility] Iuifflrerj83[address] [place], [place] [address]Dr. Donna Malone MINUTE VOLUME Normal [facility] Comment on above: Performed By: #### A BG ####[facility] Hitbksrwqw4893[address] [place], [place] [address]Dr. Donna Malone Oxygen (Bld) [Partial pressure] 62.0 mm[Hg] Critically low 80.0-100.0 [facility] Comment on above: Performed By: #### A BG ####[facility] Maauisekay5[address] [place] [address]Dr. Donna Malone Oxygen saturation in Blood 91.9 % Critically low 95.0-100.0 [facility] Comment on above: Performed By: #### A BG ####[facility] Voinjgwmwk8218 [place] [address]Dr. Donna Malone PCO2 42.8 mmHg Normal 35.0-45.0 [facility] Comment on above: Performed By: #### A BG ####[facility] Qydcnuxdko0998[address] [place], [place] [address]Dr. Donna Malone PEEP [facility] Comment on above: Performed By: #### A BG ####[facility] Mkafoxcgbs8592[address] [place], [place] [address]Dr. Donna Malone pH (Bld) 7.392 [pH] Normal 7.350-7.45 0 [facility] Comment on above: Performed By: #### A BG ####[facility] Zkzbkgreld1863[address] [place], [place] [address]Dr. Donna Malone PIP [facility] Comment on above: Performed By: #### A BG ####[facility] Zfuqrtgxfp5805[address] [place], [place] [address]Dr. Donna Malone PS [facility] Comment on above: Performed By: #### A BG ####[facility] Tuitlbudla4557[address] [place], [place] [address]Dr. Donna Malone PUNCTURE SITE LR [facility] Comment on above: Performed By: #### A BG ####[facility] Tzptciwkut7[address] [place], [place] [address]Dr. Donna Malone RATE [facility] Comment on above: Performed By: #### A BG ####[facility] Xivwhvdmvh1922[address] [place], [place] [address]Dr. Donna Malone VENT MODE Normal [facility] Comment on above: Performed By: #### A BG ####[facility] Lfcmgxwbkn4[address] [place], [place] [address]Dr. Donna Malone VT Normal [facility] Comment on above: Performed By: #### A BG ####[facility] Sxffuawszt07[address] [place] [address]Dr. Donna Malone BNPon 11-14-2022 Natriuretic peptide B (Bld) [Mass/Vol] 148.0 pg/mL Normal <=900.0 [facility] Comment on above: Performed By: #### B CINDER PIT CRANE OPERATOR, CMP, HSTROPN ####[facility] Rmdrztotvj85[address] [place] [address]Dr. Donna Malone CBC AUTO DIFFon 11-14-2022 BASO # 0.0 103/ul Normal 0.0-0.1 [facility] Comment on above: Performed By: #### C BC ####[facility] Mdjvubqklx99[address] [place], [place] [address]Dr. Donna Malone Basophils/100 WBC (Bld) 0.5 % Normal 0.2-2.0 [facility] Comment on above: Performed By: #### C BC ####[facility] Pdwckerjgk[address] [place], [place] [address]Dr. Donna Malone EO # 0.1 103/ul Normal 0.0-0.7 [facility] Comment on above: Performed By: #### C BC ####[facility] Eulbpwsmxb0516[address] [place], [place] [address]Dr. Donna Malone Eosinophils/100 WBC (Bld) 0.6 % Critically low 0.9-7.0 [facility] Comment on above: Performed By: #### C BC ####[facility] Uixmlagxlw6599[address] [place], [place] [address]Dr. Donna Malone Erythrocyte distribution width (RBC) [Ratio] 14.8 % Normal 11.0-15.0 [facility] Comment on above: Performed By: #### C BC ####[facility] Weamrncyqt9[address] [place], [place] [address]Dr. Donna Malone Hematocrit (Bld) [Volume fraction] 41.9 % Critically low 42.0-54.0 [facility] Comment on above: Performed By: #### C BC ####[facility] Jveoguuklt5[address] [place] [id number]. Donna Malone Hemoglobin (Bld) [Mass/Vol] 13.6 g/dL Critically low 14.0-18.0 [facility] Comment on above: Performed By: #### C BC ####[facility] Saihptudkb39[address] [place] [id number]. Donna Malone IG # 0.01 10e3/ul Normal 0.00-0.03 [facility] Comment on above: Performed By: #### C BC ####[facility] Rgzlfoufen0748 [place] [address]Dr. Donna Malone IG % 0.1 % Normal 0.0-0.5 [facility] Comment on above: Performed By: #### C BC ####[facility] Nskatyppdf6079 [place] [address]Dr. Donna Malone LYMPH # 1.7 103/ul Normal 1.2-3.8 [facility] Comment on above: Performed By: #### C BC ####[facility] Jrrobwatha8674 [place] [address]Dr. Donna Malone Lymphocytes/100 WBC (Bld) 21.2 % Normal 20.5-60.0 [facility] Comment on above: Performed By: #### C BC ####[facility] Gstgmyhnnd3[address] [place] [address]Dr. Donna Malone MANUAL DIFF REQ NO Normal [facility] Comment on above: Performed By: #### C BC ####[facility] Gtemtskzun[address] [place], [place] [address]Dr. Donna Malone MCH (RBC) [Entitic mass] 29.2 pg Normal 25.9-34.0 [facility] Comment on above: Performed By: #### C BC ####[facility] Ajzqytmbij6[address] [place], [place] [address]Dr. Donna Malone MCHC (RBC) [Mass/Vol] 32.5 g/dL Normal 29.9-35.2 [facility] Comment on above: Performed By: #### C BC ####[facility] Evkqhfjmrf18[address] [place] [id number]. Donna Malone MCV (RBC) [Entitic vol] 90.1 fL Normal 80.0-94.0 [facility] Comment on above: Performed By: #### C BC ####[facility] Skclcxuvny0720 [place] [id number]. Donna Malone MONO # 0.4 103/ul Normal 0.3-0.8 [facility] Comment on above: Performed By: #### C BC ####[facility] Hayhxanyof4[address] [place] [id number]. Donna Malone Monocytes/100 WBC (Bld) 5.5 % Normal 1.7-12.0 [facility] Comment on above: Performed By: #### C BC ####[facility] Vrjoslaifm4350 [place] [phone]. Donna Malone NEUT # 5.7 103/ul Normal 1.4-6.5 [facility] Comment on above: Performed By: #### C BC ####[facility] Suedbpqpjv[address] [place], [place] [address]Dr. Donna Malone Neutrophils/100 WBC (Bld) 72.1 % Normal 43.0-75.0 [facility] Comment on above: Performed By: #### C BC ####[facility] Erxyrstwxf6962 [place] [phone]. Donna Malone Platelet mean volume (Bld) [Entitic vol] 11.5 fL Normal 9.5-13.5 [facility] Comment on above: Performed By: #### C BC ####[facility] Rvgrujwrnh2410 [place] [phone]. Donna Malone PLT 193 103/ul Normal 150-450 [facility] Comment on above: Performed By: #### C BC ####[facility] Ugsruqtzah6858 [place] [phone]. Donna Malone RBC 4.65 106/ul Critically low 4.70-6.10 [facility] Comment on above: Performed By: #### C BC ####[facility] Gxlhkvomoe7469 [place], [place] [address]Fk. Donna Malone WBC 7.9 103/ul Normal 4.0-11.0 [facility] Comment on above: Performed By: #### C BC ####[facility] Gaxcngysoj2437 [place], [place] [address]Gt. Donna Malone CT HEAD WO CONon 11-14-2022 CT HEAD WO CON Normal [facility] CULTURE BLOODon 11-14-2022 Microscopic examination of blood, culture Culture Observations: NO GROWTH AT 5 DAYS. Normal [facility] Comment on above: Performed By: #### B LDCX2 ####[facility] Cpwowotmpy2912 [place], [place] [address]Ab. Donna Malone Microscopic examination of blood, culture Culture Observations: NO GROWTH AT 5 DAYS. Normal [facility] Comment on above: Performed By: #### B LDCX1 ####[facility] Jgpcidigeg3754 [place], [place] [address]Nw. Donna Malone Covid-19 PCR (CVDTBH)on SARS-CoV-2 (COVID-19) RNA JOSÉ MIGUEL+probe Ql (Unsp spec) Not detected Normal NOT DETECTED [facility] Comment on above: Result Comment: When [...] for this test is supported by the [employer]'s declaration that [...] be used). Performed By: #### C VDTBH ####[facility] Nhogeleirs[address] [place] [address]Dr. Donna Malone DRUG SCREEN RAPID (URINE)on 11-14-2022 AMP Negative Normal NEGATIVE [facility] Comment on above: Performed By: #### D SHARONA, ERUR ####[facility] Tlsqkbrvls26[address] [place] [address]Dr. Donna Malone BAR Negative Normal NEGATIVE [facility] Comment on above: Performed By: #### D RUGRPD, ERUR ####[facility] Tyxbklvlzq8754 [place] [address]Dr. Donna Malone BUP Negative Normal NEGATIVE [facility] Comment on above: Performed By: #### D RUGDANNIELLED, ERUR ####[facility] Dxzbstymbw[address] [place], [place] [address]Dr. Donna Malone BZO Negative Normal NEGATIVE [facility] Comment on above: Performed By: #### D RUGDANNIELLED, ERUR ####[facility] Vfyrcgcibr9315 [place] [address]Dr. oDnna Malone EVONNE Negative Normal NEGATIVE [facility] Comment on above: Performed By: #### D KAMRYND, ERUR ####[facility] Nyyxiilbyz[address] [place], [place] [address]Dr. Donna Malone CUT-OFFS SEE BELOW Normal [facility] Comment on above: Result Comment: AMP [...] ng/mL Performed By: #### D RUGRPD, ERUR ####[facility] Lhhelsuxfl38[address] [place] [address]Dr. Donna Malone DRUG CUT HEADER DRUG CLASS TEST SYST EM CUT-OFF CONCENTRATIONS ARE FOLLOWS: Normal [facility] Comment on above: Performed By: #### D SHARONA, ERUR ####[facility] Wmzxikthnt5[address] [place] [address]Dr. Donna Malone mAMP Negative Normal NEGATIVE [facility] Comment on above: Performed By: #### Calvin TABOR, ERUR ####[facility] Tvohqfyxfh8[address] [place] [address]Dr. Donna Malone MTD Negative Normal NEGATIVE [facility] Comment on above: Performed By: #### D SHARONA, ERUR ####[facility] Nnikkklxra2580 [place] [address]Dr. Donna Malone OPI Negative Normal NEGATIVE [facility] Comment on above: Performed By: #### D SHARONA, ERUR ####[facility] Juanrjfydx9132 [place] [address]Dr. Donna Malone OXY Negative Normal NEGATIVE [facility] Comment on above: Performed By: #### Calvin TABOR, ERUR ####[facility] Vytagvdanb77[address] [place] [address]Dr. Donna Malone PCP Negative Normal NEGATIVE [facility] Comment on above: Performed By: #### Calvin TABOR, ERUR ####[facility] Ymjitgpsnz3247 [place] [address]Dr. Donna Malone PPX Negative Normal NEGATIVE [facility] Comment on above: Performed By: #### Calvin TABOR, ERUR ####[facility] Kokdzqlnru3699 [place] [address]Dr. Donna Malone TCA Positive Abnormal NEGATIVE [facility] Comment on above: Performed By: #### Calvin TABOR, ERUR ####[facility] Ivxsvxmzgn2965 [place] [address]Dr. Donna Malone THC Negative Normal NEGATIVE [facility] Comment on above: Performed By: #### D SHARONA, ERUR ####[facility] Yoznqzcwlg[address] [place] [address]Dr. Donna Malone ER URINE PROFILEon 3 Bilirubin Ql (U) MODERATE Abnormal NEGATIVE [facility] Comment on above: Performed By: #### Calvin TABOR, ERUR ####[facility] Zdoeavuvlq3495 [place] [address]Dr. Donna Malone Clarity (U) CLEAR Normal CLEAR [facility] Comment on above: Performed By: #### Calvin TABOR, ERUR ####[facility] Gnkxjcqowd4943 [place] [address]Dr. Donna Malone Color (U) DK. YELLOW Normal YELLOW [facility] Comment on above: Performed By: #### Calvin TABOR, ERUR ####[facility] Rnhtbefbgl[address] [place], [place] [address]Dr. Rubyyvan FERNANDEZD A micrscopic examina tion will be performed if indicated. Normal [facility] Comment on above: Performed By: #### Calvin TABOR, ERUR ####[facility] Vsxylweikb[address] [place], [place] [address]Dr. Donna Malone Glucose Ql (U) Negative Normal NEGATIVE [facility] Comment on above: Performed By: #### Calvin TABOR, ERUR ####[facility] Pesvqoicpw45[address] [place], [place] [address]Dr. Donna Malone Hemoglobin Ql (U) Negative Normal NEGATIVE [facility] Comment on above: Performed By: #### Calvin TABOR, ERUR ####[facility] Ogfeieeesp7[address] [place], [place] [address]Dr. Donna Malone Ketones Ql (U) 40 mg/dl Abnormal NEGATIVE [facility] Comment on above: Performed By: #### Calvin TABOR, ERUR ####[facility] Onlbcpqmod49[address] [place], [place] [address]Dr. Donna Faisal LEUKOCYTES Negative Normal NEGATIVE [facility] Comment on above: Performed By: #### Calvin TABOR, ERUR ####[facility] Qroewgfgnq4509 [place] [address]Dr. Rubyyvan Malone Nitrite Ql (U) Negative Normal NEGATIVE [facility] Comment on above: Performed By: #### Calvin TABOR, ERUR ####[facility] Btyocslyct9949 [place] [address]Dr. Donna Malone pH (U) 6.0 [pH] Normal 5-9 [facility] Comment on above: Performed By: #### D SHARONA, ERUR ####[facility] Smmoxbawoq1433 [place] [address]Dr. Donna Malone SPEC GRAVITY 1.030 Abnormal 1.005-<=1. 025 [facility] Comment on above: Performed By: #### Calvin TABOR, ERUR ####[facility] Narbiidrww5537 [place] [address]Dr. Donna Malone UA PROTEIN TRACE Normal NEGATIVE/ TRACE [facility] Comment on above: Performed By: #### WESLY LAUR ####[facility] Zzomwligbn4[address] [place], [place] [address]Dr. Donna Malone UR MICRO IND NOT INDICATED Normal [facility] Comment on above: Performed By: #### Calvin TABOR ERUR ####[facility] Piosklseya2820 [place] [address]Dr. Donna Malone Urobilinogen Qn (U) 1.0 {Jermain'U}/dL Normal 0.2 - 1. 0 [facility] Comment on above: Performed By: #### Calvin TABOR, ERUR ####[facility] Aqryfjsgaa[address] [place], [place] [address]Dr. Donna Malone LACTATE/LACTIC ACIDon 2022 Lactate [Moles/Vol] 1.6 mmol/L Normal 0.4-1.9 [facility] Comment on above: Performed By: #### L ACT ####[facility] Fdtuvgpezi[address] [place], [place] [address]Dr. Donna Malone PROF 14(COMP METB)on 023 Albumin [Mass/Vol] 3.4 g/dL Normal 3.4-5.0 [facility] Comment on above: Performed By: #### B CINDER PIT CRANE OPERATOR, CMP, HSTROPN ####[facility] Aeorbejhlf[address] [place], [place] [address]Dr. Donna Malone Albumin/Globulin [Mass ratio] 1.0 {ratio} Normal [facility] Comment on above: Performed By: #### B CINDER PIT CRANE OPERATOR, CMP, HSTROPN ####[facility] Oosrvcmpwi8998 [place] [address]Dr. Donna Malone ALP [Catalytic activity/Vol] 48 U/L Normal 46-116 [facility] Comment on above: Performed By: #### B CINDER PIT CRANE OPERATOR, CMP, HSTROPN ####[facility] Xutlsrnsis8535 [place] [address]Dr. Donna Malone ALT [Catalytic activity/Vol] 13 U/L Critically low 16-63 [facility] Comment on above: Performed By: #### B CINDER PIT CRANE OPERATOR, CMP, HSTROPN ####[facility] Otcklbxyps8695 [place] [address]Dr. Donna Malone Anion gap [Moles/Vol] 13.2 mmol/L Normal [facility] [place] [facility] Comment on above: Performed By: #### B CINDER PIT CRANE OPERATOR, CMP, HSTROPN ####[facility] Lbfsfpqkiq[address] [place], [place] [address]Dr. Donna Malone AST [Catalytic activity/Vol] 13 U/L Critically low 15-37 [facility] Comment on above: Performed By: #### B CINDER PIT CRANE OPERATOR, CMP, HSTROPN ####[facility] Bamjonfwsd4745 [place] [address]Dr. Donna Malone Bilirubin [Mass/Vol] 0.4 mg/dL Normal 0.2-1.0 [facility] Comment on above: Performed By: #### B CINDER PIT CRANE OPERATOR, CMP, HSTROPN ####[facility] Yorlbanxii7748 [place] [address]Dr. Donna Malone Calcium [Mass/Vol] 9.2 mg/dL Normal 8.5-10.1 [facility] Comment on above: Performed By: #### B CINDER PIT CRANE OPERATOR, CMP, HSTROPN ####[facility] Awzsbnzahh3134 [place] [address]Dr. Donna Malone Chloride [Moles/Vol] 108 mmol/L Critically high 98-107 [facility] Comment on above: Performed By: #### B CINDER PIT CRANE OPERATOR, CMP, HSTROPN ####[facility] Jzwrapvlgf9435 [place] [address]Dr. Donna Malone CO2 [Moles/Vol] 27.0 mmol/L Normal 21.0-32.0 [facility] Comment on above: Performed By: #### B CINDER PIT CRANE OPERATOR, CMP, HSTROPN ####[facility] Ytusdawwvp8519 [place] [address]Dr. Donna Malone Creatinine [Mass/Vol] 1.14 mg/dL Normal 0.70-1.30 [facility] Comment on above: Performed By: #### B CINDER PIT CRANE OPERATOR, CMP, HSTROPN ####[facility] Cqmflmtcot[address] [place], [place] [address]Dr. Donna Malone EGFR-AF EMIRATI >60 Normal >=60 [facility] Comment on above: Performed By: #### B CINDER PIT CRANE OPERATOR, CMP, HSTROPN ####[facility] Uhcbvrbpfz[address] [place], [place] [address]Dr. Donna Malone EGFR-NON AF EMIRATI >60 Normal >=60 [facility] Comment on above: Performed By: #### B CINDER PIT CRANE OPERATOR, CMP, HSTROPN ####[facility] Jjxgxopbww[address] [place], [place] [address]Dr. Donna Malone Globulin (S) [Mass/Vol] 3.5 g/dL Normal [facility] Comment on above: Performed By: #### B CINDER PIT CRANE OPERATOR, CMP, HSTROPN ####[facility] Obiitwccud20[address] [place], [place] [address]Dr. Donna Malone Glucose [Mass/Vol] 126 mg/dL Critically high 74-106 T [facility] Comment on above: Performed By: #### B CINDER PIT CRANE OPERATOR, CMP, HSTROPN ####[facility] Nuhljiqloe[address] [place], [place] [address]Dr. Donna Malone Potassium [Moles/Vol] 4.2 mmol/L Normal 3.5-5.1 [facility] Comment on above: Performed By: #### B CINDER PIT CRANE OPERATOR, CMP, HSTROPN ####[facility] Uswgmusclf[address] [place], [place] [address]Dr. Donna Malone Protein [Mass/Vol] 6.9 g/dL Normal 6.4-8.2 [facility] Comment on above: Performed By: #### B CINDER PIT CRANE OPERATOR, CMP, HSTROPN ####[facility] Txpvopehbs2805 [place] [address]Dr. Donna Malone Sodium [Moles/Vol] 144 mmol/L Normal 136-145 [facility] Comment on above: Performed By: #### B CINDER PIT CRANE OPERATOR, CMP, HSTROPN ####[facility] Ekeyuoncnj0436 [place] [address]Dr. Donna Malone Urea nitrogen [Mass/Vol] 17.0 mg/dL Normal 7.0-18.0 [facility] Comment on above: Performed By: #### B CINDER PIT CRANE OPERATOR, CMP, HSTROPN ####[facility] Xgsnntpips8583 [place] [address]Dr. Donna Malone Urea nitrogen/Creatinine [Mass ratio] 14.9 mg/mg Normal [facility] Comment on above: Performed By: #### B CINDER PIT CRANE OPERATOR, CMP, HSTROPN ####[facility] Vxpfrhaavz0032 [place] [address]Dr. Donna Malone TROPONIN, HIGH SENSITIVITYon 11-14-2022 HSTROP 11.2 pg/mL Normal 4.0-76.1 [facility] Comment on above: Result Comment: CUT- OFF POINTS HAVE BEEN ESTABLISHED BASED ON THE FOURTH UNIVERSAL DEFINITIONS OF MYOCARDIALINFARCTION. THE UPPER REFERENCE LIMIT (URL) OF TROPONIN, DEFINED THE 99TH PERCENTILE OFcTnI DISTRIBUTION IN A REFERENCE POPULATION, HAS BEEN CONFIRMED THE DECISION THRESHOLDFOR LA DIAGNOSIS. Performed By: #### B CINDER PIT CRANE OPERATOR, CMP, HSTROPN ####[facility] Hxnskshjhg9732 [place] [address]Dr. Donna Malone XR CHEST 1 Von 11-14-2022 XR CHEST 1 V Normal [facility] ER URINE PROFILEon 3 Bilirubin Ql (U) Negative Normal NEGATIVE [facility] Comment on above: Performed By: #### E RUR ####[facility] Usulydunky6166 [place] [address]Dr. Donna Malone Clarity (U) CLEAR Normal CLEAR [facility] Comment on above: Performed By: #### E RUR ####[facility] [id number] [place], [place] [address]Dr. Donna Malone Color (U) YELLOW Normal YELLOW [facility] Comment on above: Performed By: #### E RUR ####[facility] Tiuzabenaj50[address] [place], [place] [address]Dr. Donna Malone ERUAHD A micrscopic examina tion will be performed if indicated. Normal [facility] Comment on above: Performed By: #### E RUR ####[facility] Gemvmkkvrb0899[address] [place], [place] [address]Dr. Donna Mlaone Glucose Ql (U) 250 mg/dl Abnormal NEGATIVE [facility] Comment on above: Performed By: #### E RUR ####[facility] Sykdirzrqc9368[address] [place], [place] [address]Dr. Donna Malone Hemoglobin Ql (U) TRACE-INTACT Abnormal NEGATIVE [facility] Comment on above: Performed By: #### E RUR ####[facility] Aqrermwwcf3589[address] [place], [place] [address]Dr. Donna Malone Ketones Ql (U) Negative Normal NEGATIVE [facility] Comment on above: Performed By: #### E RUR ####[facility] Zhziwhoilf6875[address] [place], [place] [address]Dr. Donna Malone LEUKOCYTES Negative Normal NEGATIVE [facility] Comment on above: Performed By: #### E RUR ####[facility] Ixbesuuppr9266[address] [place], [place] [address]Dr. Donna Malone Nitrite Ql (U) Negative Normal NEGATIVE [facility] Comment on above: Performed By: #### E RUR ####[facility] Lqmtdwsnoz5[address] [place], [place] [address]Dr. Donna Malone pH (U) 5.5 [pH] Normal 5-9 [facility] Comment on above: Performed By: #### E RUR ####[facility] Llcxfoucaa60[address] [place], [place] [address]Dr. Donna Malone SPEC GRAVITY 1.025 Normal 1.005-<=1. 025 [facility] Comment on above: Performed By: #### E RUR ####[facility] Gultsxoeau05[address] [place], [place] [address]Dr. Donna Faisal UA PROTEIN Negative Normal NEGATIVE/ TRACE [facility] Comment on above: Performed By: #### E RUR ####[facility] Ofownzvmwp028[address] [place], [place] [address]Dr. Donna Malone UR MICRO IND NOT INDICATED Normal [facility] Comment on above: Performed By: #### E RUR ####[facility] Nspeexrebm9267[address] [place], [place] [address]Dr. Donna Malone Urobilinogen Qn (U) 0.2 {Jermain'U}/dL Normal 0.2 - 1. 0 [facility] Comment on above: Performed By: #### E RUR ####[facility] Zkvigeyciy77[address] [place], [place] [address]Dr. Rubyyvan Malone CBC AUTO DIFFon 10-26-2022 BASO # 0.0 103/ul Normal 0.0-0.1 [facility] Comment on above: Performed By: #### C BC ####[facility] Eknqptnhlf[address] [place], [place] [address]Dr. Donna Malone Basophils/100 WBC (Bld) 0.4 % Normal 0.2-2.0 [facility] Comment on above: Performed By: #### C BC ####[facility] Gbkkyxcfsc1016[address] [place], [place] [address]Dr. Donna Malone EO # 0.0 103/ul Normal 0.0-0.7 [facility] Comment on above: Performed By: #### C BC ####[facility] Lyntcgptew[address] [place], [place] [address]Dr. Donna Malone Eosinophils/100 WBC (Bld) 0.0 % Critically low 0.9-7.0 [facility] Comment on above: Performed By: #### C BC ####[facility] Icsldhdufr2812[address] [place], [place] [address]Dr. Donna Malone Erythrocyte distribution width (RBC) [Ratio] 14.5 % Normal 11.0-15.0 [facility] Comment on above: Performed By: #### C BC ####[facility] [address]xc[address] [place] [address]Dr. Donna Malone Hematocrit (Bld) [Volume fraction] 41.2 % Critically low 42.0-54.0 [facility] Comment on above: Performed By: #### C BC ####[facility] Ylleoadaet9[address] [place], [place] [address]Dr. Rubyyvan Malone Hemoglobin (Bld) [Mass/Vol] 13.7 g/dL Critically low 14.0-18.0 [facility] Comment on above: Performed By: #### C BC ####[facility] Jrigsjlwrl7177[address] [place], [place] [address]Dr. Donna Malone IG # 0.02 10e3/ul Normal 0.00-0.03 [facility] Comment on above: Performed By: #### C BC ####[facility] Zyikfnftht49[address] [place], [place] [address]Dr. Rubyyvan Malone IG % 0.2 % Normal 0.0-0.5 [facility] Comment on above: Performed By: #### C BC ####[facility] Fhwidxpmay7[address] [place], [place] [address]DrElizabeth Malone LYMPH # 1.2 103/ul Normal 1.2-3.8 [facility] Comment on above: Performed By: #### C BC ####[facility] Ukjnmppfha[address] [place], [place] [address]DrElizabeth Rubyyvan Malone Lymphocytes/100 WBC (Bld) 14.4 % Critically low 20.5-60.0 [facility] Comment on above: Performed By: #### C BC ####[facility] Gfyhyabhcr[address] [place], [place] [address]DrElizabeth Malone MANUAL DIFF REQ NO Normal [facility] Comment on above: Performed By: #### C BC ####[facility] Ammavbqimp0987[address] [place], [place] [address]DrElizabeth Malone MCH (RBC) [Entitic mass] 29.4 pg Normal 25.9-34.0 [facility] Comment on above: Performed By: #### C BC ####[facility] Agrvxsfrmn60[address] [place] [address]DrElizabeth Malone MCHC (RBC) [Mass/Vol] 33.3 g/dL Normal 29.9-35.2 [facility] Comment on above: Performed By: #### C BC ####[facility] Mkejaqpcio[address] [place], [place] [address]DrElizabeth Malone MCV (RBC) [Entitic vol] 88.4 fL Normal 80.0-94.0 [facility] Comment on above: Performed By: #### C BC ####[facility] Obbgjfqawp[address] [place], [place] [address]DrElizabeth Malone MONO # 0.2 103/ul Critically low 0.3-0.8 [facility] Comment on above: Performed By: #### C BC ####[facility] Klueeyjswo7955[address] [place], [place] [address]DrElizabeth Malone Monocytes/100 WBC (Bld) 2.5 % Normal 1.7-12.0 [facility] Comment on above: Performed By: #### C BC ####[facility] Zpritkofsr[address] [place], [place] [address]DrElizabeth Malone NEUT # 6.9 103/ul Critically high 1.4-6.5 [facility] Comment on above: Performed By: #### C BC ####[facility] Sklejoubev6[address] [place], [place] [address]DrElizabeth Malone Neutrophils/100 WBC (Bld) 82.5 % Critically high 43.0-75.0 [facility] Comment on above: Performed By: #### C BC ####[facility] Spweeodedo6026[address] [place], [place] [address]DrElizabeth Malone Platelet mean volume (Bld) [Entitic vol] 11.3 fL Normal 9.5-13.5 [facility] Comment on above: Performed By: #### C BC ####[facility] Zpbrszjeqq8[address] [place], [place] [address]Dr. Donna Malone PLT 241 103/ul Normal 150-450 [facility] Comment on above: Performed By: #### C BC ####[facility] I[address]hhpc[address] [place] [address]Dr. Donna Malone RBC 4.66 106/ul Critically low 4.70-6.10 [facility] Comment on above: Performed By: #### C BC ####[facility] Vnhhumansr6[address] [place] [address]Dr. Donna Malone WBC 8.4 103/ul Normal 4.0-11.0 [facility] Comment on above: Performed By: #### C BC ####[facility] Nfeciqayik[address] [place] [address]Dr. Donna Malone CRPon 10-26-2022 CRP [Mass/Vol] mg/L Normal <=1.0 [facility] Comment on above: Performed By: #### C RP, BMP ####[facility] Vleeujitib55[address] [place], [place] [address]Dr. Donna Malone CT LSPINE WO CONon 3 CT LSPINE WO CON Normal [facility] PROF CHEM 8 (BAS METB)on Anion gap [Moles/Vol] 11.9 mmol/L Normal [facility] Comment on above: Performed By: #### C RP, BMP ####[facility] Ufeldsokiy[address] [place] [address]Dr. Donna Malone Calcium [Mass/Vol] 9.1 mg/dL Normal 8.5-10.1 [facility] Comment on above: Performed By: #### C RP, BMP ####[facility] R[address]elqkvbb[address] [place] [address]Dr. Donna Faisal Chloride [Moles/Vol] 104 mmol/L Normal 98-107 [facility] Comment on above: Performed By: #### C RP, BMP ####[facility] W[address]fceztpb8[address] [place] [address]Dr. Rubyyvan Malone CO2 [Moles/Vol] 26.3 mmol/L Normal 21.0-32.0 [facility] Comment on above: Performed By: #### C RP, BMP ####[facility] J[address]xs[address]kp[address] [place] [id number]. Donna Malone Creatinine [Mass/Vol] 0.99 mg/dL Normal 0.70-1.30 [facility] Comment on above: Performed By: #### C RP, BMP ####[facility] Yr[address]pvk[address] [place] [id number]. Donna Malone EGFR-AF EMIRATI >60 Normal >=60 [facility] Comment on above: Performed By: #### C RP, BMP ####[facility] Qploveourt9[address] [place] [id number]. Donna Malone EGFR-NON AF EMIRATI >60 Normal >=60 [facility] Comment on above: Performed By: #### C RP, BMP ####[facility] Bmihtzcewd8754 [place] [id number]. Donna Malone Glucose [Mass/Vol] 152 mg/dL Critically high 74-106 [facility] Comment on above: Performed By: #### C RP, BMP ####[facility] Wswwujifnt4[address] [place] [id number]. Donna Malone Potassium [Moles/Vol] 4.2 mmol/L Normal 3.5-5.1 [facility] Comment on above: Performed By: #### C RP, BMP ####[facility] Pjlinokxck5[address] [place] [id number]. Donna Malone Sodium [Moles/Vol] 138 mmol/L Normal 136-145 [facility] Comment on above: Performed By: #### C RP, BMP ####[facility] Qclgxttevu0365 [place] [phone]. Donna Malone Urea nitrogen [Mass/Vol] 12.0 mg/dL Normal 7.0-18.0 [facility] Comment on above: Performed By: #### C RP, BMP ####[facility] Bdggmvbdse9222 [place] [id number]. Donna Malone Urea nitrogen/Creatinine [Mass ratio] 12.1 mg/mg Normal [facility] Comment on above: Performed By: #### C RP, BMP ####[facility] Tnnzumyhtf[address] [place], [place] [address]Dr. Donna Faisal SED RATE WESTERGRENon 2022 SED RATE 57 mm/hr Critically high <=20 [facility] Comment on above: Performed By: #### S EDR ####[facility] Wumqvqrqwl64[address] [place], [place] [address]Dr. Donna Faisal CBC AUTO DIFFon 10-25-2022 BASO # 0.0 103/ul Normal 0.0-0.1 [facility] Comment on above: Performed By: #### C BC ####[facility] Nqhytjixcy14[address] [place], [place] [address]Dr. Donna Malone Basophils/100 WBC (Bld) 0.4 % Normal 0.2-2.0 [facility] Comment on above: Performed By: #### C BC ####[facility] Qiisofirzm7056[address] [place], [place] [address]Dr. Donna Malone EO # 0.0 103/ul Normal 0.0-0.7 [facility] Comment on above: Performed By: #### C BC ####[facility] Pqglpanflb3155[address] [place], [place] [address]Dr. Donna Malone Eosinophils/100 WBC (Bld) 0.0 % Critically low 0.9-7.0 [facility] Comment on above: Performed By: #### C BC ####[facility] Jvtjglfrcm1875[address] [place], [place] [address]Dr. Donna Malone Erythrocyte distribution width (RBC) [Ratio] 14.5 % Normal 11.0-15.0 [facility] Comment on above: Performed By: #### C BC ####[facility] Riywlbjobq6436[address] [place], [place] [address]Dr. Donna Malone Hematocrit (Bld) [Volume fraction] 43.8 % Normal 42.0-54.0 [facility] Comment on above: Performed By: #### C BC ####[facility] Mgyspaokat6889[address] [place], [place] [address]Dr. Donna Malone Hemoglobin (Bld) [Mass/Vol] 14.2 g/dL Normal 14.0-18.0 [facility] Comment on above: Performed By: #### C BC ####[facility] U[address]cs[address] [place] [address]DrElizabeth Beltranyvan Malone IG # 0.01 10e3/ul Normal 0.00-0.03 [facility] Comment on above: Performed By: #### C BC ####[facility] Eebaiuxris4[address] [place] [address]DrElizabeth Rubyyvan Malone IG % 0.1 % Normal 0.0-0.5 [facility] Comment on above: Performed By: #### C BC ####[facility] Oksvbrqdxy50[address] [place], [place] [address]DrElizabeth Rubyyvan Malone LYMPH # 1.4 103/ul Normal 1.2-3.8 [facility] Comment on above: Performed By: #### C BC ####[facility] Rgwrleyeqs9[address] [place], [place] [address]DrElizabeth Rubyyvan Malone Lymphocytes/100 WBC (Bld) 17.1 % Critically low 20.5-60.0 [facility] Comment on above: Performed By: #### C BC ####[facility] Zirhipkwbi34[address] [place], [place] [address]DrElizabeth Rubyyvan Malone MANUAL DIFF REQ NO Normal [facility] Comment on above: Performed By: #### C BC ####[facility] Dnpamjnnem[address] [place], [place] [address]DrElizabeth Rubyyvan Malone MCH (RBC) [Entitic mass] 29.1 pg Normal 25.9-34.0 [facility] Comment on above: Performed By: #### C BC ####[facility] Lapapgkyed186[address] [place], [place] [address]DrElizabeth Rubyyvan Malone MCHC (RBC) [Mass/Vol] 32.4 g/dL Normal 29.9-35.2 [facility] Comment on above: Performed By: #### C BC ####[facility] Qvhbvntxsv[address] [place], [place] [address]DrElizabeth Rubyyvan Malone MCV (RBC) [Entitic vol] 89.8 fL Normal 80.0-94.0 [facility] Comment on above: Performed By: #### C BC ####[facility] C[address]jq[address]rbru[address] [place] [address]DrElizabeth Beltranyvan Faisal MONO # 0.3 103/ul Normal 0.3-0.8 [facility] Comment on above: Performed By: #### C BC ####[facility] Pyyevrlliy4[address] [place] [address]DrElizabeth Malone Monocytes/100 WBC (Bld) 4.1 % Normal 1.7-12.0 [facility] Comment on above: Performed By: #### C BC ####[facility] Wmiflzwllr[address] [place], [place] [address]DrElizabeth Malone NEUT # 6.3 103/ul Normal 1.4-6.5 [facility] Comment on above: Performed By: #### C BC ####[facility] Jikkwbnfuk8972[address] [place], [place] [address]DrElizabeth Malone Neutrophils/100 WBC (Bld) 78.3 % Critically high 43.0-75.0 [facility] Comment on above: Performed By: #### C BC ####[facility] Tlshalovjy[address] [place], [place] [address]DrElizabeth Malone Platelet mean volume (Bld) [Entitic vol] 11.3 fL Normal 9.5-13.5 [facility] Comment on above: Performed By: #### C BC ####[facility] Rgskilfski6849[address] [place], [place] [address]Dr. Donna Malone PLT 271 103/ul Normal 150-450 [facility] Comment on above: Performed By: #### C BC ####[facility] Wxmptmspcb[address] [place], [place] [address]DrElizabeth Malone RBC 4.88 106/ul Normal 4.70-6.10 [facility] Comment on above: Performed By: #### C BC ####[facility] Edlknagisr[address] [place], [place] [address]DrElizabeth Malone WBC 8.0 103/ul Normal 4.0-11.0 [facility] Comment on above: Performed By: #### C BC ####[facility] Xjkbkdcudz026[address] [place], [place] [address]Dr. Rubyyvan Faisal ER URINE PROFILEon 3 Bilirubin Ql (U) Negative Normal NEGATIVE [facility] Comment on above: Performed By: #### E RUR ####[facility] Oiroicgvdx[address] [place], [place] [address]Dr. Donna Malone Clarity (U) CLEAR Normal CLEAR [facility] Comment on above: Performed By: #### E RUR ####[facility] Rvufdwfvkf9[address] [place], [place] [address]Dr. Donna Malone Color (U) YELLOW Normal YELLOW [facility] Comment on above: Performed By: #### E RUR ####[facility] Xqppfjounz5[address] [place], [place] [address]Dr. Donna Malone ERUAHD A micrscopic examina tion will be performed if indicated. Normal [facility] Comment on above: Performed By: #### E RUR ####[facility] Dhvjltfltp[address]157[address] [place], [place] [address]Dr. Donna Malone Glucose Ql (U) 100 mg/dl Abnormal NEGATIVE [facility] Comment on above: Performed By: #### E RUR ####[facility] Aybsaxnmbc[address] [place], [place] [address]Dr. Donna Malone Hemoglobin Ql (U) Negative Normal NEGATIVE [facility] Comment on above: Performed By: #### E RUR ####[facility] Riovpkowrv[address] [place], [place] [address]Dr. Donna Malone Ketones Ql (U) TRACE Abnormal NEGATIVE [facility] Comment on above: Performed By: #### E RUR ####[facility] Ozffkwvrrr2707[address] [place], [place] [address]Dr. Donna Malone LEUKOCYTES Negative Normal NEGATIVE [facility] Comment on above: Performed By: #### E RUR ####[facility] Hwzmvpzvjs[address] [place], [place] [address]Dr. Donna Malone Nitrite Ql (U) Negative Normal NEGATIVE [facility] Comment on above: Performed By: #### E RUR ####[facility] Uwhytuaqyt4[address] [place], [place] [address]Dr. Donna Malone pH (U) 6.0 [pH] Normal 5-9 [facility] Comment on above: Performed By: #### E RUR ####[facility] Qgwwrvnxkb034[address] [place], [place] [address]Dr. Donna Malone SPEC GRAVITY >=1.030 Abnormal 1.005-<=1. 025 [facility] Comment on above: Performed By: #### E RUR ####[facility] Ywjqbefdyx[address]76[address] [place], [place] [address]Dr. Donna Malone UA PROTEIN Negative Normal NEGATIVE/ TRACE [facility] Comment on above: Performed By: #### E RUR ####[facility] Islgeswmhw6032[address] [place], [place] [address]Dr. Donna Malone UR MICRO IND NOT INDICATED Normal [facility] Comment on above: Performed By: #### E RUR ####[facility] Tfnczoxnce3039[address] [place], [place] [address]Dr. Donna Malone Urobilinogen Qn (U) 0.2 {Jermain'U}/dL Normal 0.2 - 1. 0 [facility] Comment on above: Performed By: #### E RUR ####[facility] Vvohcohxjl9915[address] [place], [place] [address]Dr. Donna Malone PROF CHEM 8 (BAS METB)on Anion gap [Moles/Vol] 16.4 mmol/L Normal [facility] Comment on above: Performed By: #### B MP ####[facility] Obsqrktnsd1745[address] [place], [place] [address]Dr. Donna Malone Calcium [Mass/Vol] 9.4 mg/dL Normal 8.5-10.1 [facility] Comment on above: Performed By: #### B MP ####[facility] Qzclctovun1545[address] [place], [place] [address]Dr. Donna Malone Chloride [Moles/Vol] 103 mmol/L Normal 98-107 [facility] Comment on above: Performed By: #### B MP ####[facility] Diydwwqpsu32[address] [place] [address]Dr. Donna Malone CO2 [Moles/Vol] 23.7 mmol/L Normal 21.0-32.0 [facility] Comment on above: Performed By: #### B MP ####[facility] Dmgythgwsw064[address] [place], [place] [address]Dr. Donna Malone Creatinine [Mass/Vol] 1.12 mg/dL Normal 0.70-1.30 [facility] Comment on above: Performed By: #### B MP ####[facility] Eonhzzcdse0143[address] [place], [place] [address]Dr. Donna Malone EGFR-AF EMIRATI >60 Normal >=60 [facility] Comment on above: Performed By: #### B MP ####[facility] Ardpadyszy0765[address] [place], [place] [address]Dr. Donna Faisal EGFR-NON AF EMIRATI >60 Normal >=60 [facility] Comment on above: Performed By: #### B MP ####[facility] Bbeuugowrm[address] [place], [place] [address]Dr. Donna Malone Glucose [Mass/Vol] 170 mg/dL Critically high 74-106 [facility] Comment on above: Performed By: #### B MP ####[facility] Tvlxirmhxd3902[address] [place], [place] [address]Dr. Donna Malone Potassium [Moles/Vol] 4.1 mmol/L Normal 3.5-5.1 [facility] Comment on above: Performed By: #### B MP ####[facility] Tpdkttshvl1176[address] [place], [place] [address]Dr. Donna Malone Sodium [Moles/Vol] 139 mmol/L Normal 136-145 [facility] Comment on above: Performed By: #### B MP ####[facility] Mubhqwpmvx0142[address] [place], [place] [address]Dr. Donna Malone Urea nitrogen [Mass/Vol] 9.0 mg/dL Normal 7.0-18.0 [facility] Comment on above: Performed By: #### B MP ####[facility] Sphuxamqwk4[address] [place] [id number]. Donna Malone Urea nitrogen/Creatinine [Mass ratio] 8.0 mg/mg Normal [facility] Comment on above: Performed By: #### B MP ####[facility] Yrderleiqo[address] [place], [place] [address]Dr. Donna Malone ACETONE SERUMon 08-10-2022 ACETONE Negative Normal NEGATIVE [facility] Comment on above: Performed By: #### A CETON ####[facility] Bankcdlqnr2025[address] [place], [place] [address]Dr. Donna Malone CBC AUTO DIFFon 08-10-2022 BASO # 0.1 103/ul Normal 0.0-0.1 [facility] Comment on above: Performed By: #### C BC ####[facility] Ualkqvdjyz[address] [place], [place] [address]Dr. Donna Fasial Basophils/100 WBC (Bld) 0.7 % Normal 0.2-2.0 [facility] Comment on above: Performed By: #### C BC ####[facility] Zuuwmcxoyt[address]02[address] [place], [place] [address]Dr. Donna Malone EO # 0.2 103/ul Normal 0.0-0.7 [facility] Comment on above: Performed By: #### C BC ####[facility] Vgzpqtskfn97[address] [place], [place] [address]Dr. Donna Malone Eosinophils/100 WBC (Bld) 2.0 % Normal 0.9-7.0 [facility] Comment on above: Performed By: #### C BC ####[facility] Cshtyejqzp20[address] [place], [place] [address]Dr. Donna Malone Erythrocyte distribution width (RBC) [Ratio] 14.3 % Normal 11.0-15.0 [facility] Comment on above: Performed By: #### C BC ####[facility] Itfyrszxjr11[address] [place], [place] [address]Dr. Donna Malone Hematocrit (Bld) [Volume fraction] 37.3 % Critically low 42.0-54.0 [facility] Comment on above: Performed By: #### C BC ####[facility] [address]qqlovxdfq6[address] [place] [address]Dr. Donna Malone Hemoglobin (Bld) [Mass/Vol] 12.1 g/dL Critically low 14.0-18.0 [facility] Comment on above: Performed By: #### C BC ####[facility] Otqyrilioq[address] [place] [address]Dr. Donna Malone IG # 0.03 10e3/ul Normal 0.00-0.03 [facility] Comment on above: Performed By: #### C BC ####[facility] Ivegbdtwsw[address] [place], [place] [address]Dr. Donna Malone IG % 0.4 % Normal 0.0-0.5 [facility] Comment on above: Performed By: #### C BC ####[facility] Avdjdpejgx[address] [place], [place] [address]Dr. Donna Malone LYMPH # 1.3 103/ul Normal 1.2-3.8 [facility] Comment on above: Performed By: #### C BC ####[facility] Jalhahmhkx[address] [place], [place] [address]Dr. Donna Malone Lymphocytes/100 WBC (Bld) 18.3 % Critically low 20.5-60.0 [facility] Comment on above: Performed By: #### C BC ####[facility] [id number] [place], [place] [address]Dr. Donna Malone MANUAL DIFF REQ NO Normal [facility] Comment on above: Performed By: #### C BC ####[facility] O[address] [place], [place] [address]Dr. Donna Malone MCH (RBC) [Entitic mass] 30.1 pg Normal 25.9-34.0 [facility] Comment on above: Performed By: #### C BC ####[facility] [address] [place], [place] [address]Dr. Donna Malone MCHC (RBC) [Mass/Vol] 32.4 g/dL Normal 29.9-35.2 [facility] Comment on above: Performed By: #### C BC ####[facility] [address] [place] [id number]. Donna Malone MCV (RBC) [Entitic vol] 92.8 fL Normal 80.0-94.0 [facility] Comment on above: Performed By: #### C BC ####[facility] X[address] [place] [id number]. Donna Malone MONO # 0.6 103/ul Normal 0.3-0.8 [facility] Comment on above: Performed By: #### C BC ####[facility] [address] [place], [place] [id number]. Donna Malone Monocytes/100 WBC (Bld) 7.6 % Normal 1.7-12.0 [facility] Comment on above: Performed By: #### C BC ####[facility] [address] [place], [place] [address]Dr. Donna Malone NEUT # 5.2 103/ul Normal 1.4-6.5 [facility] Comment on above: Performed By: #### C BC ####[facility] [address] [place], [place] [id number]. Donna Malone Neutrophils/100 WBC (Bld) 71.0 % Normal 43.0-75.0 [facility] Comment on above: Performed By: #### C BC ####[facility] [address] [place], [place] [id number]. Donna Malone Platelet mean volume (Bld) [Entitic vol] 11.6 fL Normal 9.5-13.5 [facility] Comment on above: Performed By: #### C BC ####[facility] [address] [place] [id number]. Donna Malone PLT 237 103/ul Normal 150-450 [facility] Comment on above: Performed By: #### C BC ####[facility] [address] [place] [id number]. Donna Malone RBC 4.02 106/ul Critically low 4.70-6.10 [facility] Comment on above: Performed By: #### C BC ####[facility] [address] [place], [place] [address]Gt. Donna Malone WBC 7.3 103/ul Normal 4.0-11.0 [facility] Comment on above: Performed By: #### C BC ####[facility] Q[address] [place] [id number]. Donna Malone Covid-19 PCR ([facility])on SARS-CoV-2 (COVID-19) RNA JOSÉ MIGUEL+probe Ql (Unsp spec) Not detected Normal NOT DETECTED [facility] Comment on above: Result Comment: When [...] for this test is supported by the [employer] of Health and Human Service's declaration that [...] be used). Performed By: #### C VDTBH ####[facility] [address] [place] [address]Dr. Donna Malone LACTATE/LACTIC ACIDon 2021 Lactate [Moles/Vol] 1.3 mmol/L Normal 0.4-1.9 [facility] Comment on above: Performed By: #### L ACT ####[facility] [address] [place], [place] [address]DrElizabeth Donna Malone PROF 14(COMP METB)on 022 Albumin [Mass/Vol] 2.9 g/dL Critically low 3.4-5.0 Th e [facility] Comment on above: Performed By: #### C MP, HSTROPN ####[facility] [address] [place] [address]Dr. Donna Malone Albumin/Globulin [Mass ratio] 0.7 {ratio} Normal [facility] Comment on above: Performed By: #### C MARTI, HSTROPN ####[facility] [address] [place] [address]Dr. Donna Malone ALP [Catalytic activity/Vol] 45 U/L Critically low 46-116 [facility] Comment on above: Performed By: #### C MARTI, HSTROPN ####[facility] [address] [place] [address]Dr. Donna Malone ALT [Catalytic activity/Vol] 12 U/L Critically low 16-63 [facility] Comment on above: Performed By: #### C MARTI, HSTROPN ####[facility] [address] [place] [address]Dr. Donna Malone Anion gap [Moles/Vol] 10.9 mmol/L Normal [facility] [place] [facility] Comment on above: Performed By: #### C MARTI, HSTROPN ####[facility] [address] [place] [address]Dr. Donna Malone AST [Catalytic activity/Vol] 10 U/L Critically low 15-37 [facility] Comment on above: Performed By: #### C MARTI, HSTROPN ####[facility] [address] [place] [address]Dr. Donna Malone Bilirubin [Mass/Vol] 0.3 mg/dL Normal 0.2-1.0 [facility] Comment on above: Performed By: #### C MARTI, HSTROPN ####[facility] [address] [place], [place] [address]Dr. Donna Malone Calcium [Mass/Vol] 8.9 mg/dL Normal 8.5-10.1 [facility] Comment on above: Performed By: #### C MARTI, HSTROPN ####[facility] [address] [place], [place] [address]Dr. Donna Malone Chloride [Moles/Vol] 106 mmol/L Normal 98-107 [facility] Comment on above: Performed By: #### C MARTI, HSTROPN ####[facility] [address] [place] [address]Dr. Donna Malone CO2 [Moles/Vol] 29.4 mmol/L Normal 21.0-32.0 [facility] Comment on above: Performed By: #### C MARTI, HSTROPN ####[facility] [address] [place] [address]Dr. Donna Malone Creatinine [Mass/Vol] 1.15 mg/dL Normal 0.70-1.30 [facility] Comment on above: Performed By: #### C MARTI, HSTROPN ####[facility] [address] [place] [address]Dr. Donna Malone EGFR-AF EMIRATI >60 Normal >=60 [facility] Comment on above: Performed By: #### C MARTI, HSTROPN ####[facility] [address] [place] [address]Dr. Donna Malone EGFR-NON AF EMIRATI >60 Normal >=60 [facility] Comment on above: Performed By: #### C MARTI, HSTROPN ####[facility] [address] [place] [address]Dr. Donna Malone Globulin (S) [Mass/Vol] 4.2 g/dL Normal [facility] Comment on above: Performed By: #### C MARTI, HSTROPN ####[facility] [address] [place] [address]Dr. Donna Malone Glucose [Mass/Vol] 116 mg/dL Critically high 74-106 [facility] Comment on above: Performed By: #### C MARTI, HSTROPN ####[facility] [address]tr[address] [place] [address]Dr. Donna Malone Potassium [Moles/Vol] 4.3 mmol/L Normal 3.5-5.1 [facility] Comment on above: Performed By: #### C MARTI, HSTROPN ####[facility] [address] [place] [address]Dr. Donna Malone Protein [Mass/Vol] 7.1 g/dL Normal 6.4-8.2 [facility] Comment on above: Performed By: #### C MP, HSTROPN ####[facility] [address] [place] [address]Dr. Donna Malone Sodium [Moles/Vol] 142 mmol/L Normal 136-145 [facility] Comment on above: Performed By: #### C MP, HSTROPN ####[facility] [address] [place] [address]Dr. Donna Malone Urea nitrogen [Mass/Vol] 9.0 mg/dL Normal 7.0-18.0 [facility] Comment on above: Performed By: #### C MARTI, HSTROPN ####[facility] [address] [place] [address]Dr. Donna Malone Urea nitrogen/Creatinine [Mass ratio] 7.8 mg/mg Normal [facility] Comment on above: Performed By: #### C MP, HSTROPN ####[facility] [address] [place] [address]Dr. Donna Malone TROPONIN, HIGH SENSITIVITYon 08-10-2022 HSTROP 9.1 pg/mL Normal 4.0-76.1 [facility] Comment on above: Result Comment: CUT- OFF POINTS HAVE BEEN ESTABLISHED BASED ON THE FOURTH UNIVERSAL DEFINITIONS OF MYOCARDIALINFARCTION. THE UPPER REFERENCE LIMIT (URL) OF TROPONIN, DEFINED THE 99TH PERCENTILE OFcTnI DISTRIBUTION IN A REFERENCE POPULATION, HAS BEEN CONFIRMED THE DECISION THRESHOLDFOR LA DIAGNOSIS. Performed By: #### C MP, HSTROPN ####[facility] [address] [place] [address]Dr. Donna Malone XR KNEE RT 4V or >on 022 XR KNEE RT 4V or > Normal [facility] CT HEAD WO CONon 08-05-2022 CT HEAD WO CON Normal [facility] CT CSPINE WO CONon 2 CT CSPINE WO CON Normal [facility] CT FACIAL BONES WO CONon CT FACIAL BONES WO CON Normal Th e [facility] CT LSPINE WO CONon 2 CT LSPINE WO CON Normal [facility] Glucose Glucometer (BldC) [M ass/Vol]Ordered By: Sang Bauer on 07-20-2022 Glucose [Mass/Vol] 139 mg/dL [facility] Comment on above: Random Glucose Refer ence Range is dependent on time and content of last meal. Glucose of more than 200 mg/dL in a nonstressed, ambulatory subject supports the diagnosis of Diabetes Mellitus. No Panel InformationOrdered By: Sang Bauer on 07-20-2022 Bedside Glucose Comment Glu2: cleaned meter [facility] Cholesterol [Mass/volume] in Serum or PlasmaOrdered By: Sang Bauer on 07-18-2022 Cholesterol [Mass/Vol] 136 mg/dL 140-200 [facility] Comment on above: Chol less than 200 m g/dl low riskChol 201-239 mg/dl borderline riskChol 240 mg/dl and greater high risk Cholesterol in LDL Calc [Mas s/Vol]Ordered By: Sang Bauer on 07-18-2022 Cholesterol in LDL [Mass/Vol] 81 mg/dL 0-100 [facility] Comment on above: LDL ATP III CLASSIFI CATIONLDL less than 100 mg/dL OptimalLDL 100-129 mg/dL Near or above optimalLDL 130-159 mg/dL Borderline highLDL 160-189 mg/dL HighLDL greater than 189 mg/dL Very high Cholesterol in VLDL Calc [Ma ss/Vol]Ordered By: Sang Bauer on 07-18-2022 Cholesterol in VLDL [Mass/Vol] 17 mg/dL [facility] Serum or plasma high density lipoprotein (HDL) cholesterol measurementOrdered By: Sang Bauer on 07-18-2022 Cholesterol in HDL [Mass/Vol] 38 mg/dL 29-71 [facility] Comment on above: HDL CHOL ATP-III CLA SSIFICATION Cardiovascular RiskHDL > or equal to 60 mg/dL LOWHDL < 40 mg/dL HIGH Serum or plasma total choles terol/high density lipoprotein (HDL) cholesterol mass ratOrdered By: aSng Bauer on 07-18-2022 Cholesterol.total/Chol esterol in HDL [Mass ratio] 3.6 {ratio} <5.0 [facility] Triglyceride [Mass/volume] i n Serum or PlasmaOrdered By: Sang Bauer on 07-18-2022 Triglyceride [Mass/Vol] 85 mg/dL 35-149 [facility] Comment on above: TRIG ATP [...] aPTT Coag (PPP) [Time] 35.8 s 25.1-36.5 [facility] Albumin [Mass/volume] in Ser um or PlasmaOrdered By: Gayathri Leal on 07-17-2022 Albumin [Mass/Vol] 3.1 g/dL 3.2-5.5 [facility] Amphetamine Screen Ql (U)Ord ered By: Gayathri Leal on 07-17-2022 Amphetamines Ql (U) Negative Negative [facility] Automated erythrocytes count in urine sediment (number/area)Ordered By: Gayathri Leal on 07-17-2022 RBC Auto (Urine sed) [#/Area] 3-4 [HPF] 0-4 [facility] Automated leukocytes count i n urine sediment (number/area)Ordered By: Gayathri Leal on 07-17-2022 WBC Auto (Urine sed) [#/Area] 1-2 [HPF] 0-4 [facility] Barbiturates [Presence] in U rineOrdered By: Gayathri Leal on 07-17-2022 Barbiturates Ql (U) Negative Negative [facility] Basophils Auto (Bld) [#/Vol] Ordered By: Gayathri Leal on 07-17-2022 Basophils (Bld) [#/Vol] 0.1 10*3/uL 0.0-0.2 [facility] Basophils/100 WBC Auto (Bld) Ordered By: Gayathri Leal on 07-17-2022 Basophils/100 WBC (Bld) 1.0 % . [facility] Benzodiazepines [Presence] i n UrineOrdered By: Gayathri Leal on 07-17-2022 Benzodiazepines Ql (U) Positive Negative [facility] Bilirubin Test strip Ql (U)O rdered By: Gayathri Leal on 07-17-2022 Bilirubin Ql (U) Negative Negative [facility] COVID CepheidOrdered By: Olya Leal on 07-17-2022 SARS-CoV-2 (COVID-19) Ab IA Ql Negative Negative [facility] Comment on above: This is a duplicate [employer] Xpert Xpress CoV-2/Flu/RSV Plus RNA by RT-PCR result to be used for statistical tracking purpose only. SARS-CoV-2 (COVID-19) RNA JOSÉ MIGUEL+probe Ql (Unsp spec) [facility] Cannabinoids [Presence] in U rine by Screen methodOrdered By: Gayathri Leal on 07-17-2022 Cannabinoids Screen Ql (U) Negative Negative [facility] Comment on above: These are unconfirme d results and should not be used for legal purposes. Drug Cut-Off Concentration: AMPH 1000 ng/mL EWA 200 ng/mL JOHN 200 ng/mL COCM 300 ng/mL OP 300 ng/mL PCP 25 ng/mL THC 20 ng/mL Color Auto (U)Ordered By: Dung Leal on 07-17-2022 Color (U) Yellow Yellow [facility] Creatine kinase [Enzymatic a ctivity/volume] in Serum or PlasmaOrdered By: Gayathri Leal on 07-17-2022 CK [Catalytic activity/Vol] 137 U/L 22-269 [facility] Creatinine and Glomerular fi ltration rate.predicted panel (S/P/Bld)Ordered By: Gayathri Leal on 07-17-2022 Creatinine [Mass/Vol] 1.06 mg/dL 0.64-1.27 [facility] Direct bilirubin measurement Ordered By: Gayathri Leal on 07-17-2022 Bilirubin.direct [Mass/Vol] mg/dL 0.0-0.4 [facility] Eosinophils Auto (Bld) [#/Vo l]Ordered By: Gayathri Leal on 07-17-2022 Eosinophils (Bld) [#/Vol] 0.1 10*3/uL 0.0-0.45 [facility] Eosinophils/100 WBC Auto (Bl d)Ordered By: Gayathri Leal on 07-17-2022 Eosinophils/100 WBC (Bld) 0.7 % . [facility] Erythrocyte distribution wid th Auto (RBC) [Ratio]Ordered By: Gayathri Leal on 07-17-2022 Erythrocyte distribution width (RBC) [Ratio] 15.8 % 12.0-14.8 [facility] Estimated glomerular filtrat ion rate (GFR) non- AmericanOrdered By: Gayathri Leal on 07-17-2022 GFR/1.73 sq M.predicted among non-blacks MDRD (S/P/Bld) [Vol rate/Area] > 60 mL/Min [facility] Globulin Calc (S) [Mass/Vol] Ordered By: Gayathri Leal on 07-17-2022 Globulin (S) [Mass/Vol] 3.0 g/dL [facility] Glucose mean value [Mass/vol ume] in Blood Estimated from glycated hemoglobinOrdered By: Sang Bauer on 07-17-2022 Average glucose Estimated from glycated hemoglobin (Bld) [Mass/Vol] 114 mg/dL [facility] Hematocrit Auto (Bld) [Volum e fraction]Ordered By: Gayathri Leal on 07-17-2022 Hematocrit (Bld) [Volume fraction] 37.3 % 38.8-50.0 [facility] Hemoglobin A1c percentageOrd ered By: Sang Bauer on 07-17-2022 HbA1c (Bld) [Mass fraction] 5.6 % 4.3-5.6 [facility] Comment on above: Increased risk for d iabetes: 5.7 - 6.4diabetes: >6.4glycemic control for adults with diabetes: <7.0 Hemoglobin [Mass/volume] in BloodOrdered By: Gayathri Leal on 07-17-2022 Hemoglobin (Bld) [Mass/Vol] 12.3 g/dL 13.0-17.0 [facility] Ketones Auto test strip (U) [Mass/Vol]Ordered By: Gayathri Leal on 07-17-2022 Ketones (U) [Mass/Vol] 2+ Negative [facility] - Chemistry and C hemistry - challengeOrdered By: Gayathri Leal on 07-17-2022 Natriuretic peptide B (Bld) [Mass/Vol] 116.0 pg/mL 5-100 [facility] - CoagulationOrde red By: Gayathri Leal on 07-17-2022 PT Coag (PPP) [Time] 12.5 s 9.0-12.9 [facility] - Drug toxicology Ordered By: Gayathri Leal on 07-17-2022 Opiates Ql (U) Negative Negative [facility] - Hematology and Cell countsOrdered By: Gayathri Leal on 07-17-2022 Nucleated RBC/100 WBC (Bld) [Ratio] 0.1 % 0-0.5 [facility] - UrinalysisOrder ed By: Gayathri Leal on 07-17-2022 Hyaline casts LM Ql (Urine sed) None seen [LPF] 0-8 [facility] Leukocytes [#/volume] in Blo od by Automated countOrdered By: Gayathri Leal on 07-17-2022 WBC (Bld) [#/Vol] 7.8 10*3/uL 4.5-11.0 [facility] Lymphocytes Auto (Bld) [#/Vo l]Ordered By: Gayathri Leal on 07-17-2022 Lymphocytes (Bld) [#/Vol] 2.3 10*3/uL 1.00-4.8 [facility] Lymphocytes/100 WBC Auto (Bl d)Ordered By: Gayathri Leal on 07-17-2022 Lymphocytes/100 WBC (Bld) 29.5 % . [facility] MCH Auto (RBC) [Entitic mass ]Ordered By: Gayathri Leal on 07-17-2022 MCH (RBC) [Entitic mass] 30.2 pg 27.5-35.2 [facility] MCHC Auto (RBC) [Mass/Vol]Or dered By: Gayathri Leal on 07-17-2022 MCHC (RBC) [Mass/Vol] 33.1 g/dL 32.5-35.6 [facility] MCV Auto (RBC) [Entitic vol] Ordered By: Gayathri Leal on 07-17-2022 MCV (RBC) [Entitic vol] 91.5 fL 83.5-101 [facility] Monocyte %Ordered By: Zeinab Leal on 07-17-2022 Monocyte % 20 umol/L [facility] Monocytes Auto (Bld) [#/Vol] Ordered By: Gayathri Leal on 07-17-2022 Monocytes (Bld) [#/Vol] 0.4 10*3/uL 0.0-0.8 [facility] Monocytes/100 WBC Auto (Bld) Ordered By: Gayathri Leal on 07-17-2022 Monocytes/100 WBC (Bld) 5.4 % . [facility] Neutrophils Auto (Bld) [#/Vo l]Ordered By: Gayathri Leal on 07-17-2022 Neutrophils (Bld) [#/Vol] 4.9 10*3/uL 1.8-7.7 [facility] Neutrophils/100 WBC Auto (Bl d)Ordered By: Gayathri Leal on 07-17-2022 Neutrophils/100 WBC (Bld) 63.4 % . [facility] Nitrite Test strip Ql (U)Ord ered By: Gayathri Leal on 07-17-2022 Nitrite Ql (U) Negative Negative [facility] No Panel InformationOrdered By: Gayathri Leal on 07-17-2022 Estimated GFR () > 60 mL/Min [facility] Comment on above: GFR estimated refere nce range: According to KDOQI guidelines, <60 ml/min/1.73m2 is sufficient to diagnose a patient with chronic kidney disease. Pharmacy Creatinine Clearance (Chem N/A [facility] Phencyclidine Screen Ql (U)O rdered By: Gayathri Leal on 07-17-2022 Phencyclidine Ql (U) Negative Negative [facility] Platelet mean volume Auto (B ld) [Entitic vol]Ordered By: Gayathri Lael on 07-17-2022 Platelet mean volume (Bld) [Entitic vol] 10.2 fL 6.6-10.1 [facility] Platelet poor plasma interna tional normalized ratio (INR) by coagulation assay (relatOrdered By: Gayathri Leal on 07-17-2022 INR Coag (PPP) [Relative time] 1.1 {INR} [facility] Comment on above: INR Therapeutic [...] Platelets (Bld) [#/Vol] 239 10*3/uL 150-450 [facility] Protein Auto test strip (U) [Mass/Vol]Ordered By: Gayathri Leal on 07-17-2022 Protein (U) [Mass/Vol] Negative Negative [facility] Protein [Mass/volume] in Ser um or PlasmaOrdered By: Gayathri Leal on 07-17-2022 Protein [Mass/Vol] 6.1 g/dL 6.1-7.9 [facility] RBC Auto (Bld) [#/Vol]Ordere d By: Gayathri Leal on 07-17-2022 RBC (Bld) [#/Vol] 4.07 10*6/uL 3.90-5.60 [facility] Serum or plasma alanine del valle otransferase measurement without P-5'-P (enzymatic activiOrdered By: Gayathri Leal on 07-17-2022 ALT No additional P-5'-P [Catalytic activity/Vol] 13 U/L 10-60 [facility] Serum or plasma albumin/glob ulin mass ratioOrdered By: Gayathri Leal on 07-17-2022 Albumin/Globulin [Mass ratio] 1.0 {ratio} [facility] Serum or plasma alkaline gail sphatase measurement (enzymatic activity/volume)Ordered By: Gayathri Leal on 07-17-2022 ALP [Catalytic activity/Vol] 37 U/L 32-92 [facility] Serum or plasma anion gap de terminationOrdered By: Gayathri Leal on 07-17-2022 Anion gap [Moles/Vol] 12.1 mmol/L 6.0-15.0 [facility] Serum or plasma aspartate am inotransferase measurement (enzymatic activity/volume)Ordered By: Gayathri Leal on 07-17-2022 AST [Catalytic activity/Vol] 15 U/L 10-42 [facility] Serum or plasma calcium deepti urement (mass/volume)Ordered By: Gayathri Leal on 07-17-2022 Calcium [Mass/Vol] 8.8 mg/dL 8.2-10.2 [facility] Serum or plasma chloride deepak surement (moles/volume)Ordered By: Gayathri Leal on 07-17-2022 Chloride [Moles/Vol] 108 mmol/L 95-114 [facility] Serum or plasma creatine kin ase MB (CKMB)/total creatine kinase (CK) ratio by calculaOrdered By: Gayathri Leal on 07-17-2022 CK.MB Calc [Catalytic fraction] 2.6 % 0.00-2.50 [facility] Serum or plasma creatine kin ase MB measurement (mass/volume)Ordered By: Gayathri Leal on 07-17-2022 CK.MB [Mass/Vol] 3.6 ng/mL 0.6-6.[address] [facility] Serum or plasma glucose deepti urement (mass/volume)Ordered By: Gayathri Leal on 07-17-2022 Glucose [Mass/Vol] 91 mg/dL 70-100 [facility] Comment on above: ADA recommended refe rence rangeRandom Glucose Reference Range is dependent on time and content of last meal. Glucose of more than 200 mg/dL in a nonstressed, ambulatory subject supports the diagnosis of Diabetes Mellitus. Serum or plasma non-glucuron idated bilirubin measurement (mass/volume)Ordered By: Gayathri Leal on 07-17-2022 Bilirubin.indirect [Mass/Vol] TNP [facility] Comment on above: Test not performed Serum or plasma potassium me asurement (moles/volume)Ordered By: Gayathri Leal on 07-17-2022 Potassium [Moles/Vol] 4.0 mmol/L 3.5-5.1 [facility] Serum or plasma sodium measu rement (moles/volume)Ordered By: Gayathri Leal on 07-17-2022 Sodium [Moles/Vol] 139 mmol/L 136-146 [facility] Serum or plasma total biliru bin measurement (mass/volume)Ordered By: Gayathri Leal on 07-17-2022 Bilirubin [Mass/Vol] 0.8 mg/dL 0.3-1.2 [facility] Serum or plasma total carbon dioxide measurement (moles/volume)Ordered By: Gayathri Leal on 07-17-2022 CO2 [Moles/Vol] 22.9 mmol/L 22.0-30.[address] [facility] Serum or plasma urea nitroge n measurement (mass/volume)Ordered By: Gayathri Leal on 07-17-2022 Urea nitrogen [Mass/Vol] 12 mg/dL 9-23 [facility] Specific gravity Auto test s trip (U) [Rel density]Ordered By: Gayathri Leal on 07-17-2022 Specific gravity (U) [Rel density] 1.024 1.001-1.03 0 [facility] Squamous epithelial cells de tection in urine sediment by light microscopyOrdered By: Gayathri Leal on 07-17-2022 Epithelial cells.squamous LM Ql (Urine sed) None seen [HPF] 0-2 [facility] Troponin I.cardiac [Mass/vol ume] in Serum or Plasma by High sensitivity methodOrdered By: Sang Bauer on 07-17-2022 Troponin I.cardiac High sensitivity method [Mass/Vol] 7 pg/mL 0-20 [facility] Urine bacteria detection by automated methodOrdered By: Gayathri Leal on 07-17-2022 Bacteria Auto Ql (U) None seen None Seen [facility] Urine clarity by refractomet ry automatedOrdered By: Gayathri Leal on 07-17-2022 Clarity Refractometry automated (U) Clear Clear [facility] Urine cocaine detectionOrder ed By: Gayathri Leal on 07-17-2022 Cocaine Ql (U) Negative Negative [facility] Urine glucose measurement by automated test strip (mass/volume)Ordered By: Gayathri Leal on 07-17-2022 Glucose Auto test strip (U) [Mass/Vol] Normal mg/dL Normal [facility] Urine hemoglobin detection b y automated test stripOrdered By: Gayathri Leal on 07-17-2022 Hemoglobin Auto test strip Ql (U) Negative Negative [facility] Urine leukocyte esterase det ection by automated test stripOrdered By: Gayathri Leal on 07-17-2022 Leukocyte esterase Auto test strip Ql (U) 1+ Negative [facility] Urobilinogen Auto test strip (U) [Mass/Vol]Ordered By: Gayathri Leal on 07-17-2022 Urobilinogen (U) [Mass/Vol] Normal mg/dL Normal [facility] pH Auto test strip (U)Ordere d By: Gayathri Leal on 07-17-2022 pH (U) 6.5 [pH] 5.0-9.0 [facility] AMMONIAon 07-16-2022 Ammonia (P) [Moles/Vol] 44 umol/L Critically high [facility] Comment on above: Performed By: #### A MM ####[facility] [address] [place], [place] [address]Dr. Donna Malone BNPon 07-16-2022 Natriuretic peptide B (Bld) [Mass/Vol] 236.0 pg/mL Normal <=900.0 [facility] Comment on above: Performed By: #### C MP, BNP ####[facility] [address] [place], [place] [address]Dr. Donna Malone CBC AUTO DIFFon 07-16-2022 BASO # 0.1 103/ul Normal 0.0-0.1 [facility] [facility] Comment on above: Performed By: #### C BC ####[facility] Hmezdqkqak[address] [place], [place] [address]Dr. Donna Malone Basophils/100 WBC (Bld) 1.0 % Normal 0.2-2.0 [facility] Comment on above: Performed By: #### C BC ####[facility] R[address]xkrbihm[address] [place] [address]Dr. Donna Malone EO # 0.2 103/ul Normal 0.0-0.7 [facility] Comment on above: Performed By: #### C BC ####[facility] Yxryhxqgnf[address] [place], [place] [address]Dr. Donna Malone Eosinophils/100 WBC (Bld) 3.3 % Normal 0.9-7.0 [facility] Comment on above: Performed By: #### C BC ####[facility] Qyafaqihmn[address] [place], [place] [address]Dr. Donna Malone Erythrocyte distribution width (RBC) [Ratio] 15.1 % Critically high 11.0-15.0 [facility] Comment on above: Performed By: #### C BC ####[facility] Muriejfmjq2[address] [place], [place] [address]Dr. Donna Malone Hematocrit (Bld) [Volume fraction] 36.1 % Critically low 42.0-54.0 [facility] Comment on above: Performed By: #### C BC ####[facility] Hporpchdyw[address] [place], [place] [address]Dr. Donna Malone Hemoglobin (Bld) [Mass/Vol] 12.0 g/dL Critically low 14.0-18.0 [facility] Comment on above: Performed By: #### C BC ####[facility] Popuxlpcmi[address] [place], [place] [address]Dr. Donna Malone IG # 0.01 10e3/ul Normal 0.00-0.03 [facility] Comment on above: Performed By: #### C BC ####[facility] Hapjqofwpc7[address] [place], [place] [address]Dr. Donna Malone IG % 0.2 % Normal 0.0-0.5 [facility] Comment on above: Performed By: #### C BC ####[facility] Rqfzcfaeks[address] [place], [place] [address]Dr. Rubyyvan Malone LYMPH # 2.5 103/ul Normal 1.2-3.8 [facility] Comment on above: Performed By: #### C BC ####[facility] Ndorifsgca3389 [place] [phone]. Donna Malone Lymphocytes/100 WBC (Bld) 41.1 % Normal 20.5-60.0 [facility] Comment on above: Performed By: #### C BC ####[facility] Jkcbffibda1049 [place] [phone]. Donna Malone MANUAL DIFF REQ NO Normal [facility] Comment on above: Performed By: #### C BC ####[facility] Ugucknocjh27[address] [place] [phone]. Donna Malone MCH (RBC) [Entitic mass] 30.6 pg Normal 25.9-34.0 [facility] Comment on above: Performed By: #### C BC ####[facility] Rxaugcvmmo16[address] [place], [place] [address]Dr. Donna Malone MCHC (RBC) [Mass/Vol] 33.2 g/dL Normal 29.9-35.2 [facility] Comment on above: Performed By: #### C BC ####[facility] Kdaubvpipo[address] [place], [place] [address]Dr. Donna Malone MCV (RBC) [Entitic vol] 92.1 fL Normal 80.0-94.0 [facility] Comment on above: Performed By: #### C BC ####[facility] Nturkbveus[address] [place], [place] [address]Dr. Donna Malone MONO # 0.5 103/ul Normal 0.3-0.8 [facility] Comment on above: Performed By: #### C BC ####[facility] Mtqxptnqtk46[address] [place], [place] [address]Dr. Donna Malone Monocytes/100 WBC (Bld) 7.4 % Normal 1.7-12.0 [facility] Comment on above: Performed By: #### C BC ####[facility] Gpzhlbfswg[address] [place], [place] [address]Dr. Donna Malone NEUT # 2.9 103/ul Normal 1.4-6.5 [facility] Comment on above: Performed By: #### C BC ####[facility] Uaasiusilx9[address] [place] [phone]. Donna Malone Neutrophils/100 WBC (Bld) 47.0 % Normal 43.0-75.0 [facility] Comment on above: Performed By: #### C BC ####[facility] Lwxzfmjisg0418 [place] [phone]. Donna Malone Platelet mean volume (Bld) [Entitic vol] 11.4 fL Normal 9.5-13.5 [facility] Comment on above: Performed By: #### C BC ####[facility] Qoqfieihbo95[address] [place] [address]Dr. Donna Malone PLT 206 103/ul Normal 150-450 [facility] Comment on above: Performed By: #### C BC ####[facility] Bupnobpqnw26[address] [place] [address]Dr. Donna Malone RBC 3.92 106/ul Critically low 4.70-6.10 [facility] Comment on above: Performed By: #### C BC ####[facility] Kkituxycir3209 [place] [phone]. Donna Malone WBC 6.1 103/ul Normal 4.0-11.0 [facility] Comment on above: Performed By: #### C BC ####[facility] Sajlvvtsmb0[address] [place] [address]Dr. Donna Malone ECHO LIMITED STUDYon 022 ECHO LIMITED STUDY Normal [facility] MRI BRAIN WO CONon 2 MRI BRAIN WO CON Normal [facility] PROF 14(COMP METB)on 022 Albumin [Mass/Vol] 2.8 g/dL Critically low 3.4-5.0 [facility] Comment on above: Performed By: #### C MP, BNP ####[facility] Rbjecpjnoe8[address] [place] [address]Dr. Donna Malone Albumin/Globulin [Mass ratio] 0.9 {ratio} Normal [facility] Comment on above: Performed By: #### C MP, BNP ####[facility] Hnuclfymti24[address] [place] [phone]. Donna Malone ALP [Catalytic activity/Vol] 36 U/L Critically low 46-116 [facility] Comment on above: Performed By: #### C MP, BNP ####[facility] Vlqidtewbp5867 [place] [phone]. Donna Malone ALT [Catalytic activity/Vol] 13 U/L Critically low 16-63 [facility] Comment on above: Performed By: #### C MP, BNP ####[facility] Zsqakbdrgy9[address] [place], [place] [address]Dr. Donna Malone Anion gap [Moles/Vol] 10.4 mmol/L Normal [facility] Comment on above: Performed By: #### C MP, BNP ####[facility] Uzkdlowukt[address] [place], [place] [address]Dr. Donna Malone AST [Catalytic activity/Vol] 13 U/L Critically low 15-37 [facility] Comment on above: Performed By: #### C MP, BNP ####[facility] Rujktlpmrd09[address] [place], [place] [address]Dr. Donna Faisal Bilirubin [Mass/Vol] 0.3 mg/dL Normal 0.2-1.0 [facility] Comment on above: Performed By: #### C MP, BNP ####[facility] Emlgvhfhmq[address] [place], [place] [address]Dr. Donna Malone Calcium [Mass/Vol] 8.2 mg/dL Critically low 8.5-10.1 [facility] Comment on above: Performed By: #### C MP, BNP ####[facility] Trjrzzzaai63[address] [place] [address]Dr. Rubyyvan Malone Chloride [Moles/Vol] 108 mmol/L Critically high 98-107 [facility] Comment on above: Performed By: #### C MP, BNP ####[facility] Htghrxplho9[address] [place], [place] [address]Dr. Donna Malone CO2 [Moles/Vol] 25.5 mmol/L Normal 21.0-32.0 [facility] Comment on above: Performed By: #### C MP, BNP ####[facility] Pttyyhliht0[address] [place] [address]Dr. Donna Malone Creatinine [Mass/Vol] 0.92 mg/dL Normal 0.70-1.30 [facility] Comment on above: Performed By: #### C MP, BNP ####[facility] Tstzpdqxnz5[address] [place] [address]Dr. Donna Malone EGFR-AF EMIRATI >60 Normal >=60 [facility] Comment on above: Performed By: #### C MP, BNP ####[facility] Ijpvmcaoju68[address] [place] [address]Dr. Donna Malone EGFR-NON AF EMIRATI >60 Normal >=60 [facility] Comment on above: Performed By: #### C MP, BNP ####[facility] Xdevanpnqv4136[address] [place], [place] [address]Dr. Donna Malone Globulin (S) [Mass/Vol] 3.2 g/dL Normal [facility] Comment on above: Performed By: #### C MP, BNP ####[facility] Ouyvkqxyql36[address] [place], [place] [address]Dr. Donna Malone Glucose [Mass/Vol] 76 mg/dL Normal 74-106 [facility] Comment on above: Performed By: #### C MP, BNP ####[facility] Swjbphuuqe7[address] [place], [place] [address]Dr. Donna Malone Potassium [Moles/Vol] 3.9 mmol/L Normal 3.5-5.1 [facility] Comment on above: Performed By: #### C MP, BNP ####[facility] Jqpabxuduj14[address] [place], [place] [address]Dr. Donna Malone Protein [Mass/Vol] 6.0 g/dL Critically low 6.4-8.2 [facility] Comment on above: Performed By: #### C MP, BNP ####[facility] Fqhfsnmtxo47[address] [place], [place] [address]Dr. Donna Malone Sodium [Moles/Vol] 140 mmol/L Normal 136-145 [facility] Comment on above: Performed By: #### C MP, BNP ####[facility] Zrpyjncmit[address] [place] [address]Dr. Donna Malone Urea nitrogen [Mass/Vol] 12.0 mg/dL Normal 7.0-18.0 [facility] Comment on above: Performed By: #### C MP, BNP ####[facility] Snqeeooexs87[address] [place] [address]Dr. Donna Malone Urea nitrogen/Creatinine [Mass ratio] 13.0 mg/mg Normal [facility] Comment on above: Performed By: #### C MP, BNP ####[facility] Zifdfgvyxj4216[address] [place], [place] [address]Dr. Donna Malone VIT B12 AND FOLATEon 022 Cobalamin (Vitamin B12) [Mass/Vol] 532.0 pg/mL Normal 193.0-986. 0 [facility] Comment on above: Performed By: #### B 12FOL ####[facility] Owxxomtyyv75[address] [place], [place] [address]Dr. Donna Malone FOLATE 13.60 ng/mL Normal 8.60-58.90 [facility] Comment on above: Performed By: #### B 12FOL ####[facility] Chnrsxulkz14[address] [place], [place] [address]Dr. Donna Malone AMMONIAon 07-15-2022 Ammonia (P) [Moles/Vol] 23 umol/L Normal 11-32 [facility] Comment on above: Performed By: #### A MM ####[facility] Lisaldktzq[address] [place], [place] [address]Dr. Donna Malone BLOOD GASES BTYon 07-15-2022 02 MODE ROOM AIR Normal [facility] Comment on above: Performed By: #### A BG ####[facility] Hvpiaqajbv4364[address] [place], [place] [address]Dr. Donna Malone ALLENS TEST Positive Normal [facility] Comment on above: Performed By: #### A BG ####[facility] Uphlgjydgt[address] [place], [place] [address]Dr. Donna Malone Base excess Calc (Bld) [Moles/Vol] -1.3000 mmol/L Normal -2.0-2.0 [facility] Comment on above: Performed By: #### A BG ####[facility] Vovkgqlfks[address] [place] [address]Dr. Donna Malone BIPAP PRESSURE Normal [facility] Comment on above: Performed By: #### A BG ####[facility] Rjvtrjnjid99[address] [place] [address]Dr. Donna Malone CPAP Normal [facility] Comment on above: Performed By: #### A BG ####[facility] Wmyfrpprkl[address] [place] [address]Dr. Donna Malone FIO2 [facility] Comment on above: Performed By: #### A BG ####[facility] Nkcqkkunmn4162[address] [place], [place] [address]Dr. Donna Malone HCO3 (Bld) [Moles/Vol] 22.7 mmol/L Normal 22.0-26.0 [facility] Comment on above: Performed By: #### A BG ####[facility] Aouvtsvbsm[address] [place], [place] [address]Dr. Donna Malone LPM [facility] Comment on above: Performed By: #### A BG ####[facility] Mbrzfvvoen[address] [place], [place] [address]Dr. Donna Malone MINUTE VOLUME Normal [facility] Comment on above: Performed By: #### A BG ####[facility] Mbayfqyjyg[address] [place], [place] [address]Dr. Donna Malone Oxygen (Bld) [Partial pressure] 77.7 mm[Hg] Critically low 80.0-100.0 [facility] Comment on above: Performed By: #### A BG ####[facility] Iljlehotry9[address] [place], [place] [address]Dr. Donna Malone Oxygen saturation in Blood 95.9 % Normal 95.0-100.0 [facility] Comment on above: Performed By: #### A BG ####[facility] Pmndaggejo[address] [place], [place] [address]Dr. Donna Malone PCO2 33.0 mmHg Critically low 35.0-45.0 [facility] Comment on above: Performed By: #### A BG ####[facility] Qncqcbnngx[address] [place] [address]Dr. Donna Malone PEEP [facility] Comment on above: Performed By: #### A BG ####[facility] Bofjhlhjvz46[address] [place] [address]Dr. Donan Malone pH (Bld) 7.446 [pH] Normal 7.350-7.45 0 [facility] Comment on above: Performed By: #### A BG ####[facility] Wffixmhzjk0[address] [place] [address]Dr. Donna Malone PIP [facility] Comment on above: Performed By: #### A BG ####[facility] Xemxmyqsgl[address] [place], [place] [address]Dr. Donna Malone PS [facility] Comment on above: Performed By: #### A BG ####[facility] Dyeegbhwvk[address] [place], [place] [address]Dr. Donna Malone PUNCTURE SITE RB [facility] Comment on above: Performed By: #### A BG ####[facility] Imvivpfrrq7[address] [place], [place] [address]Dr. Donna Malone RATE [facility] Comment on above: Performed By: #### A BG ####[facility] Rfamowjznw[address] [place], [place] [address]Dr. Donna Malone VENT MODE [facility] Comment on above: Performed By: #### A BG ####[facility] Xhxjfivjij[address] [place], [place] [address]Dr. Donna Malone VT [facility] Comment on above: Performed By: #### A BG ####[facility] Esufhimxfy3[address] [place], [place] [address]Dr. Donna Malone BNPon 07-15-2022 Natriuretic peptide B (Bld) [Mass/Vol] 111.0 pg/mL Normal <=900.0 [facility] Comment on above: Performed By: #### B CINDER PIT CRANE OPERATOR, CMP, CMADM ####[facility] E[address]ektcwhb[address] [place] [phone]. Donna Malone CARDIAC MJ 3-6on 2 CK [Catalytic activity/Vol] 102 U/L Normal 39-308 [facility] Comment on above: Performed By: #### C MREP ####[facility] Unfd[address]fivt22[address] [place], [place] [address]Eo. Donna Malone CK.MB [Mass/Vol] 3.67 ng/mL Critically high <=3.60 [facility] Comment on above: Performed By: #### C MREP ####[facility] Kwgejuqmym0737 [place] [phone]. Donna Malone HSTROP 13.1 pg/mL Normal 4.0-76.1 [facility] Comment on above: Result Comment: CUT- OFF POINTS HAVE BEEN ESTABLISHED BASED ON THE FOURTH UNIVERSAL DEFINITIONS OF MYOCARDIALINFARCTION. THE UPPER REFERENCE LIMIT (URL) OF TROPONIN, DEFINED THE 99TH PERCENTILE OFcTnI DISTRIBUTION IN A REFERENCE POPULATION, HAS BEEN CONFIRMED THE DECISION THRESHOLDFOR LA DIAGNOSIS. Performed By: #### C MREP ####[facility] Rjvplakfya2646 [place] [phone]. Donna Malone CK [Catalytic activity/Vol] 89 U/L Normal 39-308 [facility] Comment on above: Performed By: #### C MREP ####[facility] Ilarwipbru7059 [place] [phone]. Donna Malone CK.MB [Mass/Vol] 3.37 ng/mL Normal <=3.60 [facility] Comment on above: Performed By: #### C MREP ####[facility] Opnvpjogne2177 [place] [phone]. Donna Malone HSTROP 11.2 pg/mL Normal 4.0-76.1 [facility] Comment on above: Result Comment: CUT- OFF POINTS HAVE BEEN ESTABLISHED BASED ON THE FOURTH UNIVERSAL DEFINITIONS OF MYOCARDIALINFARCTION. THE UPPER REFERENCE LIMIT (URL) OF TROPONIN, DEFINED THE 99TH PERCENTILE OFcTnI DISTRIBUTION IN A REFERENCE POPULATION, HAS BEEN CONFIRMED THE DECISION THRESHOLDFOR LA DIAGNOSIS. Performed By: #### C MREP ####[facility] Pmmbsehzwa[address] [place] [phone]. Donna Faisal CARDIAC MJ ADMITon 022 CK [Catalytic activity/Vol] 76 U/L Normal 39-308 [facility] Comment on above: Performed By: #### B CINDER PIT CRANE OPERATOR, CMP, CMADM ####[facility] Avfbwwdwnk38[address] [place] [phone]. Donna Malone CK.MB [Mass/Vol] 2.59 ng/mL Normal <=3.60 [facility] Comment on above: Performed By: #### B CINDER PIT CRANE OPERATOR, CMP, CMADM ####[facility] Vulphmqvte2897 [place] [phone]. Rubyyvan Malone HSTROP 10.1 pg/mL Normal 4.0-76.1 [facility] Comment on above: Result Comment: CUT- OFF POINTS HAVE BEEN ESTABLISHED BASED ON THE FOURTH UNIVERSAL DEFINITIONS OF MYOCARDIALINFARCTION. THE UPPER REFERENCE LIMIT (URL) OF TROPONIN, DEFINED THE 99TH PERCENTILE OFcTnI DISTRIBUTION IN A REFERENCE POPULATION, HAS BEEN CONFIRMED THE DECISION THRESHOLDFOR LA DIAGNOSIS. Performed By: #### B CINDER PIT CRANE OPERATOR, CMP, CMADM ####[facility] Jfqdpboxns9761 [place] [phone]. Donna Malone BINDU 109 ng/mL Critically high 16-96 [facility] Comment on above: Performed By: #### B CINDER PIT CRANE OPERATOR, CMP, CMADM ####[facility] Aodrabaitu[address] [place] [phone]. Donna aMlone CBC AUTO DIFFon 07-15-2022 BASO # 0.0 103/ul Normal 0.0-0.1 [facility] Comment on above: Performed By: #### C BC ####[facility] Fszttljtmc9578 [place] [phone]. Donna Malone Basophils/100 WBC (Bld) 0.7 % Normal 0.2-2.0 [facility] Comment on above: Performed By: #### C BC ####[facility] Nzwijncivr7569 [place] [phone]. Donna Malone EO # 0.1 103/ul Normal 0.0-0.7 [facility] Comment on above: Performed By: #### C BC ####[facility] Pymfznvrip05[address] [place] [address]Dr. Donna Malone Eosinophils/100 WBC (Bld) 2.3 % Normal 0.9-7.0 [facility] Comment on above: Performed By: #### C BC ####[facility] Reutdhmwlu[address] [place], [place] [address]Dr. Donna Malone Erythrocyte distribution width (RBC) [Ratio] 15.2 % Critically high 11.0-15.0 [facility] Comment on above: Performed By: #### C BC ####[facility] Vsflqurvwi[address] [place], [place] [address]Dr. Donna Malone Hematocrit (Bld) [Volume fraction] 34.8 % Critically low 42.0-54.0 [facility] Comment on above: Performed By: #### C BC ####[facility] Xrzxdqmanp62[address] [place], [place] [address]Dr. Donna Malone Hemoglobin (Bld) [Mass/Vol] 11.4 g/dL Critically low 14.0-18.0 [facility] Comment on above: Performed By: #### C BC ####[facility] Zuivqfcxuc8[address] [place], [place] [address]Dr. Donna Malone IG # 0.01 10e3/ul Normal 0.00-0.03 [facility] Comment on above: Performed By: #### C BC ####[facility] Qjdtxmvxfm15[address] [place], [place] [address]Dr. Donna Malone IG % 0.2 % Normal 0.0-0.5 [facility] Comment on above: Performed By: #### C BC ####[facility] Wuufvmejum6[address] [place], [place] [address]Dr. Donna Malone LYMPH # 1.6 103/ul Normal 1.2-3.8 [facility] Comment on above: Performed By: #### C BC ####[facility] Xzrqgbqfoq[address] [place], [place] [address]Dr. Donna Malone Lymphocytes/100 WBC (Bld) 26.4 % Normal 20.5-60.0 [facility] Comment on above: Performed By: #### C BC ####[facility] Ikbvwazcsl75[address] [place] [address]Dr. Donna Malone MANUAL DIFF REQ NO Normal [facility] Comment on above: Performed By: #### C BC ####[facility] Fcgerrgesq1360 [place] [phone]. Donna Malone MCH (RBC) [Entitic mass] 30.7 pg Normal 25.9-34.0 [facility] Comment on above: Performed By: #### C BC ####[facility] Kphkyttvto9917 [place] [address]Dr. Donna Malone MCHC (RBC) [Mass/Vol] 32.8 g/dL Normal 29.9-35.2 [facility] Comment on above: Performed By: #### C BC ####[facility] Ahvsrrrvuv[address] [place], [place] [address]Dr. Donna Malone MCV (RBC) [Entitic vol] 93.8 fL Normal 80.0-94.0 [facility] Comment on above: Performed By: #### C BC ####[facility] Rweqmjhfzm[address] [place], [place] [address]DrElizabeth Malone MONO # 0.5 103/ul Normal 0.3-0.8 [facility] Comment on above: Performed By: #### C BC ####[facility] Utgtrdfjrp[address] [place], [place] [address]DrElizabeth Malone Monocytes/100 WBC (Bld) 7.5 % Normal 1.7-12.0 [facility] Comment on above: Performed By: #### C BC ####[facility] Vzolftcejz[address] [place], [place] [address]DrElizabeth Malone NEUT # 3.8 103/ul Normal 1.4-6.5 [facility] Comment on above: Performed By: #### C BC ####[facility] Thbcsnymny18[address] [place], [place] [address]DrElizabeth Malone Neutrophils/100 WBC (Bld) 62.9 % Normal 43.0-75.0 [facility] Comment on above: Performed By: #### C BC ####[facility] Tqaaksbiuk0720 [place], [place] [address]Hq. Donna Malone Platelet mean volume (Bld) [Entitic vol] 11.7 fL Normal 9.5-13.5 [facility] Comment on above: Performed By: #### C BC ####[facility] Rxskbfzqfv7507 [place], [place] [address]Yq. Donna Malone PLT 220 103/ul Normal 150-450 [facility] Comment on above: Performed By: #### C BC ####[facility] Xdepfeuxse9456 [place], [place] [address]Hs. Donna Malone RBC 3.71 106/ul Critically low 4.70-6.10 [facility] Comment on above: Performed By: #### C BC ####[facility] Zhgkoazdid7937 [place], [place] [address]Pq. Donna Malone WBC 6.0 103/ul Normal 4.0-11.0 [facility] Comment on above: Performed By: #### C BC ####[facility] Bmducrovnk7320 [place], [place] [address]Uc. [address] CT CSPINE WO CONon 2 CT CSPINE WO CON Normal [facility] CT HEAD WO CONon 07-15-2022 CT HEAD WO CON Normal [facility] CTA NECK WO W CONon 07-15-20 22 CTA NECK WO W CON Normal [facility] CULTURE URINEon 07-15-2022 CULTURE URINE Culture Observations : LIGHT GROWTH OF MIXED SKIN MICHAEL. NO POTENTIAL PATHOGENS SEEN. Normal [facility] Comment on above: Performed By: #### U RCX ####[facility] Jogzxjjpcl4838 [place] [phone]. Donna Malone Covid-19 PCR (CVDTBH)on SARS-CoV-2 (COVID-19) RNA JOSÉ MIGUEL+probe Ql (Unsp spec) Not detected Normal NOT DETECTED [facility] Comment on above: Result Comment: When [...] for this test is supported by the [employer]'s declaration that [...] be used). Performed By: #### C VDTBH ####[facility] Rrcoarpclz67[address] [place] [address]Dr. Donna Malone DEPAKENE/VALPROICon 07-15-20 22 DEPAKENE 53.6 ug/ml Normal 50.0-100.0 [facility] Comment on above: Performed By: #### V ALP ####[facility] Nvryxsnfzp4639 [place] [address]Dr. Donna Malone DRUG SCREEN RAPID (URINE)on 07-15-2022 AMP Negative Normal NEGATIVE [facility] Comment on above: Performed By: #### Calvin TABOR, ERUR ####[facility] Dagxfkvcge59[address] [place] [address]Dr. Donna Malone BAR Negative Normal NEGATIVE [facility] Comment on above: Performed By: #### D SHARONA, ERUR ####[facility] Rkbsizecet5[address] [place] [address]Dr. Donna Malone BUP Negative Normal NEGATIVE The [facility] Comment on above: Performed By: #### D SHARONA, ERUR ####[facility] [address]xigmiryzv[address] [place] [address]Dr. Donna Malone BZO Positive Abnormal NEGATIVE The [facility] Comment on above: Performed By: #### Calvin TABOR, ERUR ####[facility] Maljjokpch[address] [place], [place] [id number]. Donna Malone EVONNE Negative Normal NEGATIVE The [facility] Comment on above: Performed By: #### Calvin TABOR ERUR ####[facility] Iscmfkbkqd[address] [place], [place] [address]Dr. Donna Malone CUT-OFFS SEE BELOW Normal The [facility] Comment on above: Result Comment: AMP [...] ng/mL Performed By: #### Calvin TABOR ERUR ####[facility] Rzxpjzypth[address] [place], [place] [address]Dr. Donna Malone DRUG CUT HEADER DRUG CLASS TEST SYST EM CUT-OFF CONCENTRATIONS ARE FOLLOWS: Normal The [facility] Comment on above: Performed By: #### Calvin TABOR ERUR ####[facility] Tsiwldxhlg[address] [place], [place] [address]Dr. Donna Malone mAMP Negative Normal NEGATIVE The [facility] Comment on above: Performed By: #### Calvin TABOR, ERUR ####[facility] Rmvdjkpqti[address] [place], [place] [id number]. Donna Malone MTD Negative Normal NEGATIVE The [facility] Comment on above: Performed By: #### Calvin TABOR ERUR ####[facility] Rehscqopyl[address] [place], [place] [address]Dr. Donna Malone OPI Negative Normal NEGATIVE The [facility] Comment on above: Performed By: #### Calvin TABOR ERUR ####[facility] Eyerttcmad[address] [place], [place] [address]Dr. Yilan Malone OXY Negative Normal NEGATIVE The [facility] Comment on above: Performed By: #### Calvin TABOR, ERUR ####[facility] Zbbazsxnqe[address] [place] [address]Dr. Donna Malone PCP Negative Normal NEGATIVE The [facility] Comment on above: Performed By: #### Calvin TABOR, ERUR ####[facility] Dzstbqmrty40[address] [place] [address]Dr. Donna Malone PPX Negative Normal NEGATIVE The [facility] Comment on above: Performed By: #### Calvin TABOR, ERUR ####[facility] Onjzpuhlge[address] [place] [address]Dr. Donna Malone TCA Positive Abnormal NEGATIVE The [facility] Comment on above: Performed By: #### Calvin TABOR, ERUR ####[facility] Kftemejgfr[address] [place], [place] [address]Dr. Donna Malone THC Negative Normal NEGATIVE The [facility] Comment on above: Performed By: #### Calvin TABOR, ERUR ####[facility] Lkigrknqrc16[address] [place] [address]Dr. Donna Malone ER URINE PROFILEon 2 Bilirubin Ql (U) Negative Normal NEGATIVE The [facility] Comment on above: Performed By: #### Calvin TABOR, ERUR ####[facility] Ixjcwfwwag17[address] [place], [place] [address]Dr. Donna Malone Clarity (U) CLEAR Normal CLEAR The [facility] Comment on above: Performed By: #### Calvin TABOR, ERUR ####[facility] Gbmenlcdng39[address] [place] [address]Dr. Donna Malone Color (U) YELLOW Normal YELLOW The [facility] Comment on above: Performed By: #### Calvin TABOR, ERUR ####[facility] Dvncqeucaf[address] [place], [place] [address]Dr. Donna Malone ERUAHD A micrscopic examina tion will be performed if indicated. Normal The [facility] Comment on above: Performed By: #### Calvin TBAOR, ERUR ####[facility] Wpxfhdlzlb[address] [place], [place] [address]Dr. Donna Malone Glucose Ql (U) Negative Normal NEGATIVE The [facility] Comment on above: Performed By: #### Calvin TABOR, ERUR ####[facility] Mabeqaqkyh[address] [place], [place] [address]Dr. Donna Malone Hemoglobin Ql (U) Negative Normal NEGATIVE The [facility] Comment on above: Performed By: #### Calvin TABOR, ERUR ####[facility] Tgzrtrtllp[address] [place] [address]Dr. Donna Malone Ketones Ql (U) 15 mg/dl Abnormal NEGATIVE The [facility] Comment on above: Performed By: #### Calvin TABOR, ERUR ####[facility] Gqielbchwt[address] [place], [place] [address]Dr. Donna Malone LEUKOCYTES Negative Normal NEGATIVE [facility] Comment on above: Performed By: #### Calvin TABOR, ERUR ####[facility] Ogaubkjmsb97[address] [place], [place] [address]Dr. Donna Malone Nitrite Ql (U) Negative Normal NEGATIVE The [facility] Comment on above: Performed By: #### Calvin TABOR, ERUR ####[facility] Bhtocuhgpx87[address] [place], [place] [address]Dr. Donna Malone pH (U) 6.0 [pH] Normal 5-9 [facility] Comment on above: Performed By: #### Calvin TABOR, ERUR ####[facility] Mrzrbknpup[address] [place], [place] [address]Dr. Donna Malone SPEC GRAVITY >=1.030 Abnormal 1.005-<=1. 025 The [facility] Comment on above: Performed By: #### Calvin TABOR, ERUR ####[facility] Ydrcyzdsva46[address] [place] [address]Dr. Donna Malone UA PROTEIN TRACE Normal NEGATIVE/ TRACE The [facility] Comment on above: Performed By: #### Calvin TABOR, ERUR ####[facility] Ncwldvodwg[address] [place] [address]Dr. Donna Malone UR MICRO IND NOT INDICATED Normal The [facility] Comment on above: Performed By: #### D RUGRPD, ERUR ####[facility] Mpraluroxn[address] [place] [address]Dr. Donna Malone Urobilinogen Qn (U) 0.2 {Jermain'U}/dL Normal 0.2 - 1. 0 [facility] Comment on above: Performed By: #### D SHARONA, ERUR ####[facility] Dnwxyidowh5[address] [place] [address]Dr. Rubyyvan Malone ETHANOL (BLD ALC)on 07-15-20 22 ALC NOTE NOTE: 80 mg/dl is th e legal limit for a blood alcohol level Normal [facility] Comment on above: Performed By: #### E TH ####[facility] [address]fjpfjxzrk[address] [place], [place] [address]Dr. Rubyyvan Malone Ethanol [Mass/Vol] mg/dL Normal [facility] Comment on above: Performed By: #### E TH ####[facility] Iwkvmqwgvf[address] [place], [place] [address]Dr. Rubyyvan Malone LACTATE/LACTIC ACIDon 2021 Lactate [Moles/Vol] 1.3 mmol/L Normal 0.4-1.9 [facility] Comment on above: Performed By: #### L ACT ####[facility] Fcsasfacuk[address] [place], [place] [address]Dr. Rubyyvan Malone PROF 14(COMP METB)on 022 Albumin [Mass/Vol] 2.9 g/dL Critically low 3.4-5.0 [facility] Comment on above: Performed By: #### B CINDER PIT CRANE OPERATOR, CMP, CMADM ####[facility] Gcipdioujp4943 [place] [address]Dr. Rubyyvan Malone Albumin/Globulin [Mass ratio] 0.9 {ratio} Normal [facility] Comment on above: Performed By: #### B CINDER PIT CRANE OPERATOR, CMP, CMADM ####[facility] Mozidixara[address] [place], [place] [address]Dr. Donna Malone ALP [Catalytic activity/Vol] 37 U/L Critically low 46-116 [facility] Comment on above: Performed By: #### B CINDER PIT CRANE OPERATOR, CMP, CMADM ####[facility] Fuuwzrsxon6487 [place] [address]Dr. Donna Malone ALT [Catalytic activity/Vol] 10 U/L Critically low 16-63 [facility] Comment on above: Performed By: #### B CINDER PIT CRANE OPERATOR, CMP, CMADM ####[facility] Nruaaxcfxq9786 [place] [address]Dr. Donna Malone Anion gap [Moles/Vol] 8.0 mmol/L Normal [facility] Comment on above: Performed By: #### B CINDER PIT CRANE OPERATOR, CMP, CMADM ####[facility] Shocvkxsqg29[address] [place] [address]Dr. Donna Malone AST [Catalytic activity/Vol] 12 U/L Critically low 15-37 [facility] Comment on above: Performed By: #### B CINDER PIT CRANE OPERATOR, CMP, CMADM ####[facility] Zusgldawrj[address] [place] [address]Dr. Donna Malone Bilirubin [Mass/Vol] 0.3 mg/dL Normal 0.2-1.0 [facility] Comment on above: Performed By: #### B CINDER PIT CRANE OPERATOR, CMP, CMADM ####[facility] Autkwhtvzi[address] [place], [place] [address]Dr. Donna Malone Calcium [Mass/Vol] 7.9 mg/dL Critically low 8.5-10.1 Th e [facility] Comment on above: Performed By: #### B CINDER PIT CRANE OPERATOR, CMP, CMADM ####[facility] Kfmyshgcyc84[address] [place] [address]Dr. Donna Malone Chloride [Moles/Vol] 107 mmol/L Normal 98-107 The [facility] Comment on above: Performed By: #### B CINDER PIT CRANE OPERATOR, CMP, CMADM ####[facility] Emwnbbrqyw7[address] [place] [address]Dr. Donna Malone CO2 [Moles/Vol] 27.1 mmol/L Normal 21.0-32.0 [facility] Comment on above: Performed By: #### B CINDER PIT CRANE OPERATOR, CMP, CMADM ####[facility] Xusbyeorbg8442 [place] [address]Dr. Donna Malone Creatinine [Mass/Vol] 0.99 mg/dL Normal 0.70-1.30 [facility] Comment on above: Performed By: #### B CINDER PIT CRANE OPERATOR, CMP, CMADM ####[facility] Jwvdmjhbgo3[address] [place] [address]Dr. Donna Malone EGFR-AF EMIRATI >60 Normal >=60 [facility] Comment on above: Performed By: #### B CINDER PIT CRANE OPERATOR, CMP, CMADM ####[facility] Kjeukvedco[address] [place] [address]Dr. Donna Malone EGFR-NON AF EMIRATI >60 Normal >=60 [facility] Comment on above: Performed By: #### B CINDER PIT CRANE OPERATOR, CMP, CMADM ####[facility] Zusfuxxffe6251 [place] [address]Dr. Donna Malone Globulin (S) [Mass/Vol] 3.3 g/dL Normal [facility] Comment on above: Performed By: #### B CINDER PIT CRANE OPERATOR, CMP, CMADM ####[facility] Kzxdxrtatn34[address] [place] [address]Dr. Donna Malone Glucose [Mass/Vol] 101 mg/dL Normal 74-106 [facility] Comment on above: Performed By: #### B CINDER PIT CRANE OPERATOR, CMP, CMADM ####[facility] Mgqfmtnrmf2553 [place] [address]Dr. Donna Malone Potassium [Moles/Vol] 4.1 mmol/L Normal 3.5-5.1 [facility] Comment on above: Performed By: #### B CINDER PIT CRANE OPERATOR, CMP, CMADM ####[facility] Epawrmrsjv7862 [place] [address]Dr. Donna Malone Protein [Mass/Vol] 6.2 g/dL Critically low 6.4-8.2 [facility] Comment on above: Performed By: #### B CINDER PIT CRANE OPERATOR, CMP, CMADM ####[facility] Mbqlsqafmj4121 [place] [address]Dr. Donna Malone Sodium [Moles/Vol] 138 mmol/L Normal 136-145 [facility] Comment on above: Performed By: #### B CINDER PIT CRANE OPERATOR, CMP, CMADM ####[facility] Znaybrnzen9812 [place] [id number]. Donna Malone Urea nitrogen [Mass/Vol] 16.0 mg/dL Normal 7.0-18.0 The [facility] Comment on above: Performed By: #### B CINDER PIT CRANE OPERATOR, CMP, CMADM ####[facility] Tvcymnyqeu3720 [place] [address]Dr. Donna Malone Urea nitrogen/Creatinine [Mass ratio] 16.2 mg/mg Normal The [facility] Comment on above: Performed By: #### B CINDER PIT CRANE OPERATOR, CMP, CMADM ####[facility] Vnsodejplr47[address] [place] [address]Dr. Donna Malone PROTIMEon 07-15-2022 INR Coag (PPP) [Relative time] 1.06 {INR} Normal The [facility] Comment on above: Performed By: #### P T, PTT ####[facility] Ljmxfkivrw[address] [place], [place] [address]Dr. Donna Malone INR GUIDELINES SEE BELOW Normal The [facility] Comment on above: Result Comment: FLORESITA RED INR: 2.0 - 3.0 CONDITIONS NOT LISTED BELOW 2.5 - 3.5 FOR PROSTHETIC HEART VALVE REPLACEMENT 2.5 - 3.5 RECURRENT THROMBOSIS Performed By: #### P T, PTT ####[facility] Kwhpjdgrmt[address] [place], [place] [address]Dr. Donna Malone PT Coag (PPP) [Time] 11.4 s Normal 9.0-11.6 [facility] Comment on above: Performed By: #### P T, PTT ####[facility] Ambbewnawj[address] [place], [place] [address]Dr. Donna Malone PTTon 07-15-2022 aPTT Coag (Bld) [Time] 30.8 s Normal 22.3-36.2 [facility] Comment on above: Performed By: #### P T, PTT ####[facility] Bhffibghat[address] [place], [place] [address]Dr. Donna Malone XR CHEST 1 Von 07-15-2022 XR CHEST 1 V Normal [facility] CULTURE URINEon 06-24-2022 CULTURE URINE Normal The [facility] Comment on above: Performed By: #### U RCX ####[facility] Cpbhmownvm4762 [place] [address]Dr. Donna Malone UA RANDOM W/MICROSCOPICon BACTERIA NONE SEEN Normal NONE SEEN The [facility] Comment on above: Performed By: #### U AMIC ####[facility] Ieklydhdxl7062 [place] [address]Dr. Donna Malone Bilirubin Ql (U) Negative Normal NEGATIVE The [facility] Comment on above: Performed By: #### U AMIC ####[facility] Mggbldfmny8[address] [place], [place] [address]Dr. Donna Malone CAST NONE SEEN Normal NONE SEEN The [facility] Comment on above: Performed By: #### U AMIC ####[facility] Pggsxahnpt[address] [place], [place] [address]Dr. Donna Malone Clarity (U) CLEAR Normal CLEAR The [facility] Comment on above: Performed By: #### U AMIC ####[facility] Gcaxudzxoj[address] [place], [place] [address]Dr. Dnona Malone Color (U) DK. YELLOW Normal YELLOW The [facility] Comment on above: Performed By: #### U AMIC ####[facility] Kuyluerqkh[address] [place], [place] [address]Dr. Donna Malone Crystals LM Nom (Urine sed) NONE SEEN Normal NONE SEEN The [facility] Comment on above: Performed By: #### U AMIC ####[facility] Mygioqyupf18[address] [place], [place] [address]Dr. Donna Malone Epithelial cells LM Ql (Urine sed) NONE SEEN Normal NONE SEEN /RARE The [facility] Comment on above: Performed By: #### U AMIC ####[facility] Rmpbkdguvz[address] [place], [place] [address]Dr. Donna Malone Glucose Ql (U) 100 mg/dl Abnormal NEGATIVE The [facility] Comment on above: Performed By: #### U AMIC ####[facility] Fccicugrjr[address] [place], [place] [address]Dr. Donna Malone Hemoglobin Ql (U) Negative Normal NEGATIVE The [facility] Comment on above: Performed By: #### U AMIC ####[facility] Xeklocpqdi8843 [place] [address]Dr. Donna Malone Ketones Ql (U) TRACE Abnormal NEGATIVE The [facility] Comment on above: Performed By: #### U AMIC ####[facility] Xsbtrzjqtj9704 [place] [address]Dr. Donna Malone LEUKOCYTES Negative Normal NEGATIVE The [facility] Comment on above: Performed By: #### U AMIC ####[facility] Mhrhpndnqk[address] [place], [place] [address]Dr. Donna Malone MUCOUS SMALL Abnormal NONE SEEN The [facility] Comment on above: Performed By: #### U AMIC ####[facility] Kbpbqaizfm25[address] [place], [place] [address]Dr. Donna Malone Nitrite Ql (U) Negative Normal NEGATIVE The [facility] Comment on above: Performed By: #### U AMIC ####[facility] Sqvehuurhn9926[address] [place], [place] [address]Dr. Donna Malone pH (U) 6.0 [pH] Normal 5-9 The [facility] Comment on above: Performed By: #### U AMIC ####[facility] Kbczveiiop[address] [place], [place] [address]Dr. Donna Malone RBC NONE SEEN Abnormal 0-2 The [facility] Comment on above: Performed By: #### U AMIC ####[facility] [address]sbfkjwpsr[address] [place], [place] [address]Dr. Donna Malone SPEC GRAVITY 1.030 Abnormal 1.005-<=1. 025 The [facility] Comment on above: Performed By: #### U AMIC ####[facility] Tpjbldyzac[address] [place], [place] [address]Dr. Donna Malone UA PROTEIN Negative Normal NEGATIVE/ TRACE The [facility] Comment on above: Performed By: #### U AMIC ####[facility] Pbiqnsftdp[address] [place], [place] [address]Dr. Donna Malone Urobilinogen Qn (U) 0.2 {Jermain'U}/dL Normal 0.2 - 1. 0 The [facility] Comment on above: Performed By: #### U AMIC ####[facility] Fmexssasek0217 [place], [place] [address]Nk. Donna Malone WBC 2-5 Abnormal NONE SEEN [facility] Comment on above: Performed By: #### U AMIC ####[facility] Djdthphfvv6455 [place], [place] [address]Lk. Donna Malone COMPLIANCE DRUG SCREENon PDF . Normal [facility] Comment on above: Performed By: #### D SDOALC ####[facility] Xrzuklfmst0540 [place], [place] [address]Jf. Donna Malone Summary FINAL Normal [facility] Comment on above: Result Comment: =====TOXASSURE [...] Performed By: #### D [facility] ####[address] [address]Oo. Donna Malone CBC AUTO DIFFon 05-16-2022 BASO # 0.0 103/ul Normal 0.0-0.1 The [facility] Comment on above: Performed By: #### C BC ####[facility] Clpbtyeqxd3299 [place] [phone]. Donna Malone Basophils/100 WBC (Bld) 0.4 % Normal 0.2-2.0 The [facility] Comment on above: Performed By: #### C BC ####[facility] Ovjwsyudhv5585 [place] [address]Dr. Donna Malone EO # 0.1 103/ul Normal 0.0-0.7 The [facility] Comment on above: Performed By: #### C BC ####[facility] Qguajrfdja8159 [place] [address]Dr. Donna Malone Eosinophils/100 WBC (Bld) 0.9 % Normal 0.9-7.0 The [facility] Comment on above: Performed By: #### C BC ####[facility] Aumwprigur3272 [place] [address]Dr. Donna Malone Erythrocyte distribution width (RBC) [Ratio] 14.9 % Normal 11.0-15.0 The [facility] Comment on above: Performed By: #### C BC ####[facility] Pyhotqxvnq7977 [place] [id number]. Donna Malone Hematocrit (Bld) [Volume fraction] 41.0 % Critically low 42.0-54.0 The [facility] Comment on above: Performed By: #### C BC ####[facility] Adxulqmwmc2780 [place] [phone]. Donna Malone Hemoglobin (Bld) [Mass/Vol] 13.3 g/dL Critically low 14.0-18.0 The [facility] Comment on above: Performed By: #### C BC ####[facility] Vucfwbrqvp1458 [place] [address]Dr. Donna Faisal IG # 0.03 10e3/ul Normal 0.00-0.03 The [facility] Comment on above: Performed By: #### C BC ####[facility] Aatgeyphdx7878 [place] [phone]. Donna Malone IG % 0.3 % Normal 0.0-0.5 The [facility] Comment on above: Performed By: #### C BC ####[facility] Dcvrkybdaj7686 [place] [phone]. Donna Malone LYMPH # 1.4 103/ul Normal 1.2-3.8 The [facility] Comment on above: Performed By: #### C BC ####[facility] Udiibsmpoc4512 [place] [phone]. Donna Malone Lymphocytes/100 WBC (Bld) 15.3 % Critically low 20.5-60.0 The [facility] Comment on above: Performed By: #### C BC ####[facility] Htxokczdtz9144 [place] [phone]. Donna Malone MANUAL DIFF REQ NO Normal [facility] Comment on above: Performed By: #### C BC ####[facility] Egzqbvfwox3263 [place] [phone]. Donna Malone MCH (RBC) [Entitic mass] 29.4 pg Normal 25.9-34.0 The [facility] Comment on above: Performed By: #### C BC ####[facility] Xwztxzrjca7334 [place] [phone]. Donna Malone MCHC (RBC) [Mass/Vol] 32.4 g/dL Normal 29.9-35.2 The [facility] Comment on above: Performed By: #### C BC ####[facility] Xcgxsdkiel0751 [place] [phone]. Donna Malone MCV (RBC) [Entitic vol] 90.5 fL Normal 80.0-94.0 The [facility] Comment on above: Performed By: #### C BC ####[facility] Qizoyuemvd0391 [place] [phone]. Donna Malone MONO # 0.8 103/ul Normal 0.3-0.8 The [facility] Comment on above: Performed By: #### C BC ####[facility] Vmobiifgbs1268 [place] [phone]. Donna Malone Monocytes/100 WBC (Bld) 8.7 % Normal 1.7-12.0 The [facility] Comment on above: Performed By: #### C BC ####[facility] Gqnxyddnad1651 [place] [phone]. Donna Malone NEUT # 6.9 103/ul Critically high 1.4-6.5 [facility] Comment on above: Performed By: #### C BC ####[facility] Gdokbomdmy6238 [place] [phone]. Donna Malone Neutrophils/100 WBC (Bld) 74.4 % Normal 43.0-75.0 [facility] Comment on above: Performed By: #### C BC ####[facility] Gkvesegvtb8794 [place] [address]Dr. Donna Malone Platelet mean volume (Bld) [Entitic vol] 11.9 fL Normal 9.5-13.5 [facility] Comment on above: Performed By: #### C BC ####[facility] Bhxeuxczad7678 [place] [phone]. Donna Malone PLT 174 103/ul Normal 150-450 [facility] Comment on above: Performed By: #### C BC ####[facility] Yubujnjfhb2042 [place] [phone]. Donna Malone RBC 4.53 106/ul Critically low 4.70-6.10 The [facility] Comment on above: Performed By: #### C BC ####[facility] Rbimcwwsbz6062 [place] [phone]. Donna Malone WBC 9.2 103/ul Normal 4.0-11.0 The [facility] Comment on above: Performed By: #### C BC ####[facility] Oukocjqllr8628 [place] [address]Dr. Donna Faisal PROF 14(COMP METB)on 022 Albumin [Mass/Vol] 3.0 g/dL Critically low 3.4-5.0 [facility] Comment on above: Performed By: #### C MP ####[facility] Fnbidagbca0253 [place] [phone]. Donna Malone Albumin/Globulin [Mass ratio] 0.8 {ratio} Normal [facility] Comment on above: Performed By: #### C MP ####[facility] Plhwwcikha3757 [place] [phone]. Donna Malone ALP [Catalytic activity/Vol] 39 U/L Critically low 46-116 [facility] Comment on above: Performed By: #### C MP ####[facility] Qzhsobqrbf5008 [place] [address]Dr. Donna Faisal ALT [Catalytic activity/Vol] 16 U/L Normal 16-63 [facility] Comment on above: Performed By: #### C MP ####[facility] Kvbwfkxqbr[address] [place], [place] [address]Dr. Donna Faisal Anion gap [Moles/Vol] 10.8 mmol/L Normal [facility] [place] [facility] Comment on above: Performed By: #### C MP ####[facility] Brikgzbicx[address] [place], [place] [address]Dr. Donna Faisal AST [Catalytic activity/Vol] 9 U/L Critically low 15-37 [facility] Comment on above: Performed By: #### C MP ####[facility] Yuqttqziku[address] [place], [place] [address]Dr. Donna Faisal Bilirubin [Mass/Vol] 0.3 mg/dL Normal 0.2-1.0 [facility] Comment on above: Performed By: #### C MP ####[facility] Ovthghusfz[address] [place], [place] [address]Dr. Donna Faisal Calcium [Mass/Vol] 8.8 mg/dL Normal 8.5-10.1 [facility] Comment on above: Performed By: #### C MP ####[facility] Uyrgayzfbo[address] [place], [place] [address]Dr. Donna Malone Chloride [Moles/Vol] 105 mmol/L Normal 98-107 [facility] Comment on above: Performed By: #### C MP ####[facility] [address] [place], [place] [address]Dr. Donna Faisal CO2 [Moles/Vol] 26.7 mmol/L Normal 21.0-32.0 [facility] Comment on above: Performed By: #### C MP ####[facility] Fcxvuerlop8[address] [place], [place] [address]Dr. Donna Malone Creatinine [Mass/Vol] 0.97 mg/dL Normal 0.70-1.30 [facility] Comment on above: Performed By: #### C MP ####[facility] Pxvcpkjoav[address] [place], [place] [address]Dr. Donna Faisal EGFR-AF EMIRATI >60 Normal >=60 [facility] Comment on above: Performed By: #### C MP ####[facility] Gzorwzlfee[address] [place], [place] [address]Dr. Donna Malone EGFR-NON AF EMIRATI >60 Normal >=60 [facility] Comment on above: Performed By: #### C MP ####[facility] Mcyazbhgku45[address] [place], [place] [address]Dr. Donna Malone Globulin (S) [Mass/Vol] 3.7 g/dL Normal [facility] Comment on above: Performed By: #### C MP ####[facility] Bqfwkqvgyu[address] [place], [place] [address]Dr. Donna Malone Glucose [Mass/Vol] 98 mg/dL Normal 74-106 [facility] Comment on above: Performed By: #### C MP ####[facility] Hphsacmwjm[address] [place], [place] [address]Dr. Donna Malone Potassium [Moles/Vol] 3.5 mmol/L Normal 3.5-5.1 [facility] Comment on above: Performed By: #### C MP ####[facility] Xzornugaxa[address] [place], [place] [address]Dr. Donna Malone Protein [Mass/Vol] 6.7 g/dL Normal 6.4-8.2 [facility] Comment on above: Performed By: #### C MP ####[facility] Dxzwqgbjjt[address] [place], [place] [address]Dr. Donna Malone Sodium [Moles/Vol] 139 mmol/L Normal 136-145 [facility] Comment on above: Performed By: #### C MP ####[facility] Mqahokinsg[address] [place], [place] [address]Dr. Donna Malone Urea nitrogen [Mass/Vol] 11.0 mg/dL Normal 7.0-18.0 [facility] Comment on above: Performed By: #### C MP ####[facility] Riwyurvmuq5[address] [place], [place] [address]Dr. Donna Malone Urea nitrogen/Creatinine [Mass ratio] 11.3 mg/mg Normal [facility] Comment on above: Performed By: #### C MP ####[facility] Sxcmpwlqzr10[address] [place], [place] [address]Dr. Donna Malone T3, TOTAL (TRIIODOTHYRONINE) on 05-16-2022 T3, TOTAL 86 ng/dL Normal 71-180 [facility] Comment on above: Performed By: #### T 3TOTAL ####[facility] Omifagbgtx9[address] [place], [place] [address]Dr. Donna Faisal T4 LABCORPon 05-16-2022 T4 [Mass/Vol] 6.4 ug/dL Normal 4.5-12.0 [facility] Comment on above: Performed By: #### T 4LC ####[facility] Fmygcqyiix34[address] [place], [place] [address]Dr. Donna Malone CBC AUTO DIFFon 05-15-2022 BASO # 0.0 103/ul Normal 0.0-0.1 [facility] Comment on above: Performed By: #### C BC ####[facility] Gqnxogselu11[address] [place], [place] [address]Dr. Donna Faisal Basophils/100 WBC (Bld) 0.3 % Normal 0.2-2.0 [facility] Comment on above: Performed By: #### C BC ####[facility] Czsofbrgme96[address] [place], [place] [address]Dr. Donna Malone EO # 0.2 103/ul Normal 0.0-0.7 [facility] Comment on above: Performed By: #### C BC ####[facility] [address]kwbl[address] [place] [id number]. Donna Malone Eosinophils/100 WBC (Bld) 2.0 % Normal 0.9-7.0 [facility] Comment on above: Performed By: #### C BC ####[facility] Ouqjbqorby[address] [place] [address]Dr. Donna Malone Erythrocyte distribution width (RBC) [Ratio] 14.6 % Normal 11.0-15.0 [facility] Comment on above: Performed By: #### C BC ####[facility] Lyhblaumsm[address] [place] [address]Dr. Donna Malone Hematocrit (Bld) [Volume fraction] 38.2 % Critically low 42.0-54.0 [facility] Comment on above: Performed By: #### C BC ####[facility] Jtesvmkhww75[address] [place], [place] [address]Dr. Donna Malone Hemoglobin (Bld) [Mass/Vol] 12.7 g/dL Critically low 14.0-18.0 [facility] Comment on above: Performed By: #### C BC ####[facility] Zddpzwvrmh[address] [place], [place] [address]Dr. Donna Malone IG # 0.04 10e3/ul Critically high 0.00-0.03 [facility] Comment on above: Performed By: #### C BC ####[facility] Fzyguusafj8[address] [place], [place] [address]Dr. Donna Malone IG % 0.4 % Normal 0.0-0.5 [facility] Comment on above: Performed By: #### C BC ####[facility] Uwccynfjxp[address] [place], [place] [address]Dr. Donna Malone LYMPH # 1.4 103/ul Normal 1.2-3.8 [facility] Comment on above: Performed By: #### C BC ####[facility] Mgiscogson30[address] [place], [place] [address]Dr. Donna Malone Lymphocytes/100 WBC (Bld) 14.9 % Critically low 20.5-60.0 [facility] Comment on above: Performed By: #### C BC ####[facility] T[address]kktqjbh4[address] [place] [address]Dr. Donna Malone MANUAL DIFF REQ NO Normal [facility] Comment on above: Performed By: #### C BC ####[facility] Sfwqwgnjgj3309 [place] [phone]. Donna Malone MCH (RBC) [Entitic mass] 30.0 pg Normal 25.9-34.0 [facility] Comment on above: Performed By: #### C BC ####[facility] Pgljchhbql97[address] [place], [place] [address]Dr. Donna Malone MCHC (RBC) [Mass/Vol] 33.2 g/dL Normal 29.9-35.2 [facility] Comment on above: Performed By: #### C BC ####[facility] Ywiuydnmsi0325[address] [place], [place] [address]Dr. Rubyyvan Malone MCV (RBC) [Entitic vol] 90.3 fL Normal 80.0-94.0 [facility] Comment on above: Performed By: #### C BC ####[facility] Xofafwcezw06[address] [place], [place] [address]Dr. Donna Malone MONO # 0.8 103/ul Normal 0.3-0.8 [facility] Comment on above: Performed By: #### C BC ####[facility] Jftlxnozbo2132[address] [place], [place] [address]Dr. Rubyyvan Malone Monocytes/100 WBC (Bld) 8.5 % Normal 1.7-12.0 [facility] Comment on above: Performed By: #### C BC ####[facility] Bfxmgohkfx[address] [place], [place] [address]Dr. Donna Malone NEUT # 6.8 103/ul Critically high 1.4-6.5 [facility] Comment on above: Performed By: #### C BC ####[facility] Wxpvwlfllq0[address] [place], [place] [address]Dr. Rubyyvan Malone Neutrophils/100 WBC (Bld) 73.9 % Normal 43.0-75.0 [facility] Comment on above: Performed By: #### C BC ####[facility] Nzdevkksss[address] [place] [phone]. Donna Malone Platelet mean volume (Bld) [Entitic vol] 12.0 fL Normal 9.5-13.5 [facility] Comment on above: Performed By: #### C BC ####[facility] Nougmhwoey[address] [place] [address]Dr. Donna Malone PLT 154 103/ul Normal 150-450 [facility] Comment on above: Performed By: #### C BC ####[facility] Ttwpovbbrs47[address] [place] [address]Dr. Donna Malone RBC 4.23 106/ul Critically low 4.70-6.10 [facility] Comment on above: Performed By: #### C BC ####[facility] S[address] [place], [place] [address]Dr. Donna Malone WBC 9.2 103/ul Normal 4.0-11.0 [facility] Comment on above: Performed By: #### C BC ####[facility] Gnovhpinif39[address] [place], [place] [address]Dr. Donna Malone PROF 14(COMP METB)on 022 Albumin [Mass/Vol] 2.9 g/dL Critically low 3.4-5.0 [facility] Comment on above: Performed By: #### C MP ####[facility] Tbnuqgdpwk[address] [place] [address]Dr. Donna Malone Albumin/Globulin [Mass ratio] 0.9 {ratio} Normal [facility] Comment on above: Performed By: #### C MP ####[facility] Wkfbmgfmvl5435 [place] [address]Dr. Donna Malone ALP [Catalytic activity/Vol] 41 U/L Critically low 46-116 [facility] Comment on above: Performed By: #### C MP ####[facility] Qxrhvzicut[address] [place] [address]Dr. Donna Malone ALT [Catalytic activity/Vol] 12 U/L Critically low 16-63 [facility] Comment on above: Performed By: #### C MP ####[facility] Uvkgjmhsny101[address] [place] [phone]. Donna Malone Anion gap [Moles/Vol] 5.6 mmol/L Normal [facility] Comment on above: Performed By: #### C MP ####[facility] Ggedqxksvu8132 [place] [phone]. Donna Malone AST [Catalytic activity/Vol] 8 U/L Critically low 15-37 [facility] Comment on above: Performed By: #### C MP ####[facility] Ypdgkwdyti0306 [place] [phone]. Donna Malone Bilirubin [Mass/Vol] 0.5 mg/dL Normal 0.2-1.0 [facility] Comment on above: Performed By: #### C MP ####[facility] Wtpewjthld87[address] [place] [address]Dr. Donna Malone Calcium [Mass/Vol] 8.3 mg/dL Critically low 8.5-10.1 [facility] Comment on above: Performed By: #### C MP ####[facility] Kjazprzhss9034 [place] [phone]. Donna Malone Chloride [Moles/Vol] 106 mmol/L Normal 98-107 [facility] Comment on above: Performed By: #### C MP ####[facility] Xwzvlpkwca5687 [place] [phone]. Donna Malone CO2 [Moles/Vol] 23.1 mmol/L Normal 21.0-32.0 [facility] Comment on above: Performed By: #### C MP ####[facility] Mwejjmadoo5[address] [place] [phone]. Donna Malone Creatinine [Mass/Vol] 0.82 mg/dL Normal 0.70-1.30 [facility] Comment on above: Performed By: #### C MP ####[facility] Iiciysdrfo2723 [place] [phone]. Donna Malone EGFR-AF EMIRATI >60 Normal >=60 [facility] Comment on above: Performed By: #### C MP ####[facility] Iwahucaorl74[address] [place] [phone]. Donna Malone EGFR-NON AF EMIRATI >60 Normal >=60 [facility] Comment on above: Performed By: #### C MP ####[facility] Bjosxtognq3284 [place] [address]Dr. Donna Malone Globulin (S) [Mass/Vol] 3.2 g/dL Normal [facility] Comment on above: Performed By: #### C MP ####[facility] Vzhwdwtxaw9981 [place] [address]Dr. Donna Malone Glucose [Mass/Vol] 81 mg/dL Normal 74-106 [facility] Comment on above: Performed By: #### C MP ####[facility] Bqczuqcwsd13[address] [place], [place] [address]Dr. Donna Malone Potassium [Moles/Vol] 3.7 mmol/L Normal 3.5-5.1 [facility] Comment on above: Performed By: #### C MP ####[facility] Znpbylbphm8[address] [place], [place] [address]Dr. Donna Malone Protein [Mass/Vol] 6.1 g/dL Critically low 6.4-8.2 [facility] Comment on above: Performed By: #### C MP ####[facility] Qvqkhjsuek99[address] [place], [place] [address]Dr. Donna Malone Sodium [Moles/Vol] 131 mmol/L Critically low 136-145 [facility] Comment on above: Performed By: #### C MP ####[facility] Lvwppvwhoh[address] [place], [place] [address]Dr. Donna Malone Urea nitrogen [Mass/Vol] 17.0 mg/dL Normal 7.0-18.0 [facility] Comment on above: Performed By: #### C MP ####[facility] Rnnjznrrwh49[address] [place], [place] [address]Dr. Donna Malone Urea nitrogen/Creatinine [Mass ratio] 20.7 mg/mg Normal [facility] Comment on above: Performed By: #### C MP ####[facility] Yigvwjvppi[address] [place], [place] [address]Dr. Donna Malone CBC AUTO DIFFon 05-14-2022 BASO # 0.1 103/ul Normal 0.0-0.1 [facility] Comment on above: Performed By: #### C BC ####[facility] Mfkxnejqjc9680 [place] [address]Dr. Donna Malone Basophils/100 WBC (Bld) 0.8 % Normal 0.2-2.0 [facility] Comment on above: Performed By: #### C BC ####[facility] Wagsnnnnoy[address] [place] [address]Dr. Donna Malone EO # 0.3 103/ul Normal 0.0-0.7 [facility] Comment on above: Performed By: #### C BC ####[facility] Halrqbqfih65[address] [place] [address]Dr. Donna Malone Eosinophils/100 WBC (Bld) 4.2 % Normal 0.9-7.0 [facility] Comment on above: Performed By: #### C BC ####[facility] Dfrygsbzyp4641 [place] [address]Dr. Donna Malone Erythrocyte distribution width (RBC) [Ratio] 14.7 % Normal 11.0-15.0 [facility] Comment on above: Performed By: #### C BC ####[facility] Fvkbniurwf8675 [place] [phone]. Donna Malone Hematocrit (Bld) [Volume fraction] 36.5 % Critically low 42.0-54.0 [facility] Comment on above: Performed By: #### C BC ####[facility] Sgeyudhcui7289 [place] [phone]. Donna Malone Hemoglobin (Bld) [Mass/Vol] 11.9 g/dL Critically low 14.0-18.0 [facility] Comment on above: Performed By: #### C BC ####[facility] Cnaseplcjg7118 [place] [address]Dr. Donna Faisal IG # 0.01 10e3/ul Normal 0.00-0.03 [facility] Comment on above: Performed By: #### C BC ####[facility] Ckzmznzvuh9865 [place] [phone]. Donna Malone IG % 0.2 % Normal 0.0-0.5 [facility] Comment on above: Performed By: #### C BC ####[facility] Aaeuvfbfsd9737 [place] [phone]. Donna Malone LYMPH # 2.1 103/ul Normal 1.2-3.8 [facility] Comment on above: Performed By: #### C BC ####[facility] Xjzpqlruql5416 [place] [phone]. Donna Malone Lymphocytes/100 WBC (Bld) 32.1 % Normal 20.5-60.0 [facility] Comment on above: Performed By: #### C BC ####[facility] Fzqnfnnhrh[address] [place], [place] [address]Dr. Donna Malone MANUAL DIFF REQ NO Normal [facility] Comment on above: Performed By: #### C BC ####[facility] Xfckddafzf7430 [place] [phone]. Donna Malone MCH (RBC) [Entitic mass] 29.7 pg Normal 25.9-34.0 [facility] Comment on above: Performed By: #### C BC ####[facility] Rj[address]arsp[address] [place], [place] [address]Dr. Donna Malone MCHC (RBC) [Mass/Vol] 32.6 g/dL Normal 29.9-35.2 [facility] Comment on above: Performed By: #### C BC ####[facility] Jqvmzmjlog[address] [place], [place] [address]Dr. Donna Malone MCV (RBC) [Entitic vol] 91.0 fL Normal 80.0-94.0 [facility] Comment on above: Performed By: #### C BC ####[facility] Fkygwktkzh3831 [place] [phone]. Donna Faisal MONO # 0.5 103/ul Normal 0.3-0.8 [facility] Comment on above: Performed By: #### C BC ####[facility] Ommiufcqtx6535 [place] [phone]. Donna Malone Monocytes/100 WBC (Bld) 8.1 % Normal 1.7-12.0 [facility] Comment on above: Performed By: #### C BC ####[facility] Lnotfinhor2699 [place] [phone]. Donna Malone NEUT # 3.5 103/ul Normal 1.4-6.5 [facility] Comment on above: Performed By: #### C BC ####[facility] Bibzgjvtlw4146 [place] [phone]. Donna Malone Neutrophils/100 WBC (Bld) 54.6 % Normal 43.0-75.0 [facility] Comment on above: Performed By: #### C BC ####[facility] Smqsbktspc3528 [place] [phone]. Donna Malone Platelet mean volume (Bld) [Entitic vol] 12.0 fL Normal 9.5-13.5 [facility] Comment on above: Performed By: #### C BC ####[facility] Ecfsaqpaoe0498 [place] [phone]. Donna Malone PLT 152 103/ul Normal 150-450 [facility] Comment on above: Performed By: #### C BC ####[facility] Tehxfqidke2234 [place] [phone]. Donna Malone RBC 4.01 106/ul Critically low 4.70-6.10 [facility] Comment on above: Performed By: #### C BC ####[facility] Xlfqqnnqru2421 [place] [phone]. Donna Malone WBC 6.4 103/ul Normal 4.0-11.0 [facility] Comment on above: Performed By: #### C BC ####[facility] Oxoflpcznd1736 [place] [phone]. Donna Malone DEPAKENE/VALPROICon 05-14-20 22 DEPAKENE 17.3 ug/ml Critically low 50.0-100.0 [facility] Comment on above: Performed By: #### V ALP ####[facility] Ounwsbkrqh495[address] [place] [address]Dr. Donna Malone POINT OF CARE GLUCOSEon Glucose [Mass/Vol] 89 mg/dL Normal 74-106 [facility] Comment on above: Performed By: #### P OCGLUC ####[facility] Shirdnbsho[address] [place] [address]Dr. Donna Malone PROF CHEM 8 (BAS METB)on Anion gap [Moles/Vol] 13.6 mmol/L Normal [facility] Comment on above: Performed By: #### B MP ####[facility] Kopqanymag[address] [place], [place] [address]Dr. Donna Malone Calcium [Mass/Vol] 7.8 mg/dL Critically low 8.5-10.1 [facility] Comment on above: Performed By: #### B MP ####[facility] [address]zfumxbrq18[address] [place], [place] [address]Dr. Donna Malone Chloride [Moles/Vol] 112 mmol/L Critically high 98-107 [facility] Comment on above: Performed By: #### B MP ####[facility] Npinhfvmrp8107[address] [place], [place] [address]Dr. Donna Malone CO2 [Moles/Vol] 22.5 mmol/L Normal 21.0-32.0 [facility] Comment on above: Performed By: #### B MP ####[facility] Umvzkgdfxi1146[address] [place], [place] [address]Dr. Donna Malone Creatinine [Mass/Vol] 1.01 mg/dL Normal 0.70-1.30 [facility] Comment on above: Performed By: #### B MP ####[facility] Ymqcqploqx64[address] [place], [place] [address]Dr. Donna Malone EGFR-AF EMIRATI >60 Normal >=60 [facility] Comment on above: Performed By: #### B MP ####[facility] Qlqpiiqzul50[address] [place], [place] [address]Dr. Donna Malone EGFR-NON AF EMIRATI >60 Normal >=60 [facility] Comment on above: Performed By: #### B MP ####[facility] Gisaucvjko7[address] [place] [address]Dr. Rubyyvan Malone Glucose [Mass/Vol] 84 mg/dL Normal 74-106 [facility] Comment on above: Performed By: #### B MP ####[facility] Iufsmazqax1157 [place] [address]Dr. Donna Malone Potassium [Moles/Vol] 4.1 mmol/L Normal 3.5-5.1 [facility] Comment on above: Performed By: #### B MP ####[facility] Pvnleendcg70[address] [place], [place] [address]Dr. Rubyyvan Malone Sodium [Moles/Vol] 144 mmol/L Normal 136-145 [facility] Comment on above: Performed By: #### B MP ####[facility] Xetwmsrjxn[address] [place], [place] [address]Dr. Donna Malone Urea nitrogen [Mass/Vol] 21.0 mg/dL Critically high 7.0-18.0 [facility] Comment on above: Performed By: #### B MP ####[facility] Kbjemuekpy[address] [place], [place] [address]Dr. Donna Malone Urea nitrogen/Creatinine [Mass ratio] 20.8 mg/mg Normal [facility] Comment on above: Performed By: #### B MP ####[facility] Mcapnuaoty10[address] [place], [place] [address]Dr. Donna Malone TSHon 05-14-2022 TSH 1.086 uIU/mL Normal 0.358-3.74 0 [facility] Comment on above: Performed By: #### T SH ####[facility] Cqrmffbfwn[address] [place], [place] [address]Dr. Donna Malone BLOOD GASES BTYon 05-13-2022 02 MODE ROOM AIR Normal [facility] Comment on above: Performed By: #### A BG ####[facility] Olfvbubpbs[address] [place], [place] [address]Dr. Donna Malone ALLENS TEST Positive Normal [facility] Comment on above: Performed By: #### A BG ####[facility] Yqywglotvs[address] [place], [place] [address]Dr. Donna Malone Base excess Calc (Bld) [Moles/Vol] -2.5000 mmol/L Critically low -2.0-2.0 [facility] Comment on above: Performed By: #### A BG ####[facility] Bvaswndyln[address] [place], [place] [address]Dr. Donna Malone BIPAP PRESSURE Normal [facility] Comment on above: Performed By: #### A BG ####[facility] Rcmueuqrpx[address]42[address] [place], [place] [address]Dr. Donna Malone CPAP Normal [facility] Comment on above: Performed By: #### A BG ####[facility] Tfsqzarhnj35[address] [place], [place] [address]Dr. Donna Malone FIO2 [facility] Comment on above: Performed By: #### A BG ####[facility] Epbnppmumg0679[address] [place], [place] [address]Dr. Donna Malone HCO3 (Bld) [Moles/Vol] 22.4 mmol/L Normal 22.0-26.0 [facility] Comment on above: Performed By: #### A BG ####[facility] Fubfpbqnma6[address] [place], [place] [address]Dr. Donna Malone LPM [facility] Comment on above: Performed By: #### A BG ####[facility] Yseigvzfyt[address] [place], [place] [address]Dr. Donna Malone MINUTE VOLUME Normal [facility] Comment on above: Performed By: #### A BG ####[facility] Jyfbhnomnz[address]82[address] [place], [place] [address]Dr. Donna Malone Oxygen (Bld) [Partial pressure] 77.6 mm[Hg] Critically low 80.0-100.0 [facility] Comment on above: Performed By: #### A BG ####[facility] Czyfjtdapg4[address] [place], [place] [address]Dr. Donna Malone Oxygen saturation in Blood 95.5 % Normal 95.0-100.0 [facility] Comment on above: Performed By: #### A BG ####[facility] Spsygdosvj7218 [place] [address]Dr. Donna Malone PCO2 40.8 mmHg Normal 35.0-45.0 [facility] Comment on above: Performed By: #### A BG ####[facility] Fmayvofgqy2855 [place] [address]Dr. Donna Malone PEEP [facility] Comment on above: Performed By: #### A BG ####[facility] Sbainuirth4441 [place] [address]Dr. Donna Malone pH (Bld) 7.359 [pH] Normal 7.350-7.45 0 [facility] Comment on above: Performed By: #### A BG ####[facility] Rbvmifqxkp[address] [place], [place] [address]Dr. Donna Malone PIP [facility] Comment on above: Performed By: #### A BG ####[facility] Cegilvnfez[address] [place], [place] [address]Dr. Donna Malone PS [facility] Comment on above: Performed By: #### A BG ####[facility] Oskqmyupft[address] [place], [place] [address]Dr. Donna Malone PUNCTURE SITE RR [facility] Comment on above: Performed By: #### A BG ####[facility] Ogpafmjmfr[address] [place], [place] [address]Dr. Donna Malone RATE [facility] Comment on above: Performed By: #### A BG ####[facility] [address]qyvzvxr[address] [place], [place] [address]Dr. Donna Malone VENT MODE [facility] Comment on above: Performed By: #### A BG ####[facility] Vifmajgxrk[address] [place], [place] [address]Dr. Donna Malone [place] [facility] Comment on above: Performed By: #### A BG ####[facility] Omeazldgbj[address] [place], [place] [address]Dr. Donna Malone BNPon 05-13-2022 Natriuretic peptide B (Bld) [Mass/Vol] 156.0 pg/mL Normal <=900.0 [facility] Comment on above: Performed By: #### C MP, CMADM, BNP ####[facility] [address]qtvxay[address] [place] [address]Dr. Donna Faisal CARDIAC MJ ADMITon 022 CK [Catalytic activity/Vol] 119 U/L Normal 39-308 [facility] Comment on above: Performed By: #### C MP, CMADM, BNP ####[facility] Mkjanfqfex[address] [place] [address]Dr. Donna Malone CK.MB [Mass/Vol] 1.27 ng/mL Normal <=3.60 [facility] Comment on above: Performed By: #### C MP, CMADM, BNP ####[facility] Xsgpuosilg668[address] [place] [address]Dr. Donna Faisal HSTROP 7.9 pg/mL Normal 4.0-76.1 [facility] Comment on above: Result Comment: CUT- OFF POINTS HAVE BEEN ESTABLISHED BASED ON THE FOURTH UNIVERSAL DEFINITIONS OF MYOCARDIALINFARCTION. THE UPPER REFERENCE LIMIT (URL) OF TROPONIN, DEFINED THE 99TH PERCENTILE OFcTnI DISTRIBUTION IN A REFERENCE POPULATION, HAS BEEN CONFIRMED THE DECISION THRESHOLDFOR LA DIAGNOSIS. Performed By: #### C MP, CMADM, BNP ####[facility] Pdrtgvpmdu4[address] [place] [address]Dr. Rubyyvan Malone BINDU 111 ng/mL Critically high 16-96 [facility] Comment on above: Performed By: #### C MP, CMADM, BNP ####[facility] Eyvqrxbsgy5[address] [place] [address]Dr. Donna Malone CBC AUTO DIFFon 05-13-2022 BASO # 0.1 103/ul Normal 0.0-0.1 [facility] Comment on above: Performed By: #### C BC ####[facility] Tvbnmmbavy89[address] [place] [address]Dr. Donna Malone Basophils/100 WBC (Bld) 0.8 % Normal 0.2-2.0 [facility] Comment on above: Performed By: #### C BC ####[facility] Yyvgvomkio32[address] [place] [address]Dr. Donna Malone EO # 0.1 103/ul Normal 0.0-0.7 [facility] Comment on above: Performed By: #### C BC ####[facility] [address]lq[address] [place], [place] [address]Dr. Donna Malone Eosinophils/100 WBC (Bld) 1.8 % Normal 0.9-7.0 [facility] Comment on above: Performed By: #### C BC ####[facility] Wveyxlppck[address] [place], [place] [address]Dr. Donna Malone Erythrocyte distribution width (RBC) [Ratio] 14.7 % Normal 11.0-15.0 [facility] Comment on above: Performed By: #### C BC ####[facility] Xxmbopajmg[address] [place], [place] [address]Dr. Donna Malone Hematocrit (Bld) [Volume fraction] 38.2 % Critically low 42.0-54.0 [facility] Comment on above: Performed By: #### C BC ####[facility] Zcggxkhkvs[address] [place], [place] [address]Dr. Donna Malone Hemoglobin (Bld) [Mass/Vol] 12.7 g/dL Critically low 14.0-18.0 [facility] Comment on above: Performed By: #### C BC ####[facility] Wkenqlsydq[address] [place], [place] [address]Dr. Donna Malone IG # 0.03 10e3/ul Normal 0.00-0.03 [facility] Comment on above: Performed By: #### C BC ####[facility] Jdzhyssuxv[address] [place], [place] [address]Dr. Donna Malone IG % 0.4 % Normal 0.0-0.5 [facility] Comment on above: Performed By: #### C BC ####[facility] Caonxlgyit[address] [place], [place] [address]Dr. Donna Malone LYMPH # 1.6 103/ul Normal 1.2-3.8 [facility] Comment on above: Performed By: #### C BC ####[facility] Wiqmsearel3739 [place] [address]Dr. Donna Faisal Lymphocytes/100 WBC (Bld) 22.8 % Normal 20.5-60.0 [facility] Comment on above: Performed By: #### C BC ####[facility] Hqocyvrguw8898 [place] [address]Dr. Rubyyvan Malone MANUAL DIFF REQ NO Normal [facility] Comment on above: Performed By: #### C BC ####[facility] Obuuixiwwx55[address] [place] [address]Dr. Donna Faisal MCH (RBC) [Entitic mass] 30.2 pg Normal 25.9-34.0 [facility] Comment on above: Performed By: #### C BC ####[facility] Mrfvuruleb[address] [place], [place] [address]Dr. Donna Faisal MCHC (RBC) [Mass/Vol] 33.2 g/dL Normal 29.9-35.2 [facility] Comment on above: Performed By: #### C BC ####[facility] Ndnxhfhndj6068 [place] [address]Dr. Rubyyvan Malone MCV (RBC) [Entitic vol] 91.0 fL Normal 80.0-94.0 [facility] Comment on above: Performed By: #### C BC ####[facility] Rmvdtxuglz6[address] [place], [place] [address]Dr. Donna Malone MONO # 0.7 103/ul Normal 0.3-0.8 [facility] Comment on above: Performed By: #### C BC ####[facility] Ipyplonrch[address] [place], [place] [address]Dr. Rubyyvan Malone Monocytes/100 WBC (Bld) 9.1 % Normal 1.7-12.0 [facility] Comment on above: Performed By: #### C BC ####[facility] Xmjdhvkklo[address] [place], [place] [address]Dr. Donna Malone NEUT # 4.7 103/ul Normal 1.4-6.5 [facility] Comment on above: Performed By: #### C BC ####[facility] Qmetnxwetv[address] [place], [place] [address]Dr. Donna Malone Neutrophils/100 WBC (Bld) 65.1 % Normal 43.0-75.0 [facility] Comment on above: Performed By: #### C BC ####[facility] Hdoaidbpnq79[address] [place] [address]Dr. Donna Malone Platelet mean volume (Bld) [Entitic vol] 11.8 fL Normal 9.5-13.5 [facility] Comment on above: Performed By: #### C BC ####[facility] Kzgwduglrb7163 [place] [address]Dr. Donna Malone PLT 179 103/ul Normal 150-450 [facility] Comment on above: Performed By: #### C BC ####[facility] Qnnsudpkzd4944 [place] [address]Dr. Donna Malone RBC 4.20 106/ul Critically low 4.70-6.10 [facility] Comment on above: Performed By: #### C BC ####[facility] Khvgafiyyw8871 [place] [address]Dr. Donna Malone WBC 7.2 103/ul Normal 4.0-11.0 [facility] Comment on above: Performed By: #### C BC ####[facility] Rzhheuqzcw[address] [place] [id number]. Donna Malone CT STROKE HEAD WOon 05-13-20 CT STROKE HEAD WO Normal [facility] Cov[facility]-19 PCR ([facility])on SARS-CoV-2 (COVID-19) RNA JOSÉ MIGUEL+probe Ql (Unsp spec) Not detected Normal NOT DETECTED [facility] Comment on above: Result Comment: When [...] for this test is supported by the [employer] of Health and Human Service's declaration that [...] be used). Performed By: #### C VDTBH ####[facility] Fluttcipcz[address] [place], [place] [address]Dr. Donna Malone DEPAKENE/VALPROICon 05-13-20 22 DEPAKENE 16.9 ug/ml Critically low 50.0-100.0 [facility] Comment on above: Performed By: #### V ALP ####[facility] Smbcsksaha[address] [place], [place] [address]Dr. Donna Malone DRUG SCREEN RAPID (URINE)on 05-13-2022 AMP Negative Normal NEGATIVE [facility] Comment on above: Performed By: #### D RUGRPD ####[facility] Direnppwnf[address] [place], [place] [address]Dr. Donna Malone BAR Negative Normal NEGATIVE [facility] Comment on above: Performed By: #### D RUGRPD ####[facility] P[address]baqgsmb[address] [place], [place] [address]Dr. Donna Malone BUP Negative Normal NEGATIVE [facility] Comment on above: Performed By: #### D RUGRPD ####[facility] Imfkbwzloa[address] [place], [place] [address]Dr. Donna Malone BZO Positive Abnormal NEGATIVE [facility] Comment on above: Performed By: #### D RUGRPD ####[facility] Nhqkvdfryo[address] [place], [place] [address]Dr. Donna Malone EVONNE Positive Abnormal NEGATIVE [facility] Comment on above: Performed By: #### D RUGRPD ####[facility] Cscurplqgw[address] [place], [place] [address]Dr. Donna Malone CUT-OFFS SEE BELOW Normal [facility] Comment on above: Result Comment: AMP (Amphetamine): 500ng/mL, BAR (Barbituates): 200 ng/mL, BZO (Benzodiazepines): 150 ng/mL, BUP (Buprenorphine): 10 ng/mL, EVONNE (Cocaine): 150 ng/mL, mAMP (Methamphetamine): 500 ng/mL, MTD (Methadone): 200 ng/mL, OPI (Opiates): 100 ng/mL, OXY (Oxycodone): 100 ng/mL, PCP (Phencyclidine): 25 ng/mL, PPX (Propoxyphene): 300 ng/mL, THC (Cannabinoids): 50 ng/mL, TCA (Trycyclic Antidepressants): 300 ng/mL Performed By: #### D RUGRPD ####[facility] Itvbgflbsv[address] [place], [place] [address]Dr. yvan [facility] DRUG CUT HEADER DRUG CLASS TEST SYST EM CUT-OFF CONCENTRATIONS ARE FOLLOWS: Normal [facility] Comment on above: Performed By: #### D RUGRPD ####[facility] Nwslnfze[address] [place], [place] [address]Dr. Donna Malone mAMP Negative Normal NEGATIVE [facility] Comment on above: Performed By: #### D RUGRPD ####[facility] Z[address]tygzkrsv60[address] [place], [place] [address]Dr. yvan [facility] MTD Negative Normal NEGATIVE [facility] Comment on above: Performed By: #### D RUGRPD ####[facility] Uhfbeokyab[address] [place], [place] [address]Dr. Donna [facility] OPI Positive Abnormal NEGATIVE [facility] Comment on above: Performed By: #### D RUGRPD ####[facility] Fdyckglhxo99[address] [place], [place] [address]Dr. Rubyyvan [facility] OXY Negative Normal NEGATIVE [facility] Comment on above: Performed By: #### D RUGRPD ####[facility] Fwbsjiqdte[address] [place], [place] [address]Dr. [facility] PCP Negative Normal NEGATIVE [facility] Comment on above: Performed By: #### D RUGRPD ####[facility] Mdcdsozcyd[address] [place], [place] [address]Dr. [facility] Negative Normal NEGATIVE [facility] Comment on above: Performed By: #### D RUGRPD ####[facility] Ilytrkssjt6775 [place] [address]Dr. Donna Malone TCA Positive Abnormal NEGATIVE [facility] Comment on above: Performed By: #### D RUGRPD ####[facility] [address]ailqhccs[address] [place], [place] [address]Dr. Donna Malone THC Negative Normal NEGATIVE [facility] Comment on above: Performed By: #### D RUGRPD ####[facility] Uornyynwop[address] [place], [place] [address]Dr. Donna Malone ER URINE PROFILEon 2 Bilirubin Ql (U) MODERATE Abnormal NEGATIVE [facility] Comment on above: Performed By: #### E RUR ####[facility] Pkuovrpnvi[address] [place], [place] [address]Dr. Donna Malone Clarity (U) SL CLOUDY Abnormal CLEAR [facility] Comment on above: Performed By: #### E RUR ####[facility] Tmdconomby[address] [place], [place] [address]Dr. Donna Malone Color (U) DK. YELLOW Normal YELLOW [facility] Comment on above: Performed By: #### E RUR ####[facility] Kq[address]wvsjpqu[address] [place], [place] [address]Dr. oDnna Malone ERUAHD A micrscopic examina tion will be performed if indicated. Normal [facility] Comment on above: Performed By: #### E RUR ####[facility] Ixprczjilo[address] [place], [place] [address]Dr. Donna Malone Glucose Ql (U) 250 mg/dl Abnormal NEGATIVE [facility] Comment on above: Performed By: #### E RUR ####[facility] [address]vzcb[address]zy[address] [place], [place] [address]Dr. Donna Malone Hemoglobin Ql (U) Negative Normal NEGATIVE [facility] Comment on above: Performed By: #### E RUR ####[facility] Irjetuxjhf[address] [place], [place] [address]Dr. Donna Mlaone Ketones Ql (U) TRACE Abnormal NEGATIVE [facility] Comment on above: Performed By: #### E RUR ####[facility] Gnmjrysnln5082 [place] [address]Dr. Donna Malone LEUKOCYTES Negative Normal NEGATIVE [facility] Comment on above: Performed By: #### E RUR ####[facility] Botuybvjfk[address] [place], [place] [address]Dr. Donna Malone Nitrite Ql (U) Negative Normal NEGATIVE [facility] Comment on above: Performed By: #### E RUR ####[facility] Horkancerq[address] [place], [place] [address]Dr. Donna Faisal pH (U) 5.5 [pH] Normal 5-9 [facility] Comment on above: Performed By: #### E RUR ####[facility] Grtcvgdqan[address] [place], [place] [address]Dr. Donna Faisal SPEC GRAVITY >=1.030 Abnormal 1.005-<=1. 025 [facility] Comment on above: Performed By: #### E RUR ####[facility] Ujgdfeegno[address] [place], [place] [address]Dr. Donna Faisal UA PROTEIN TRACE Normal NEGATIVE/ TRACE [facility] Comment on above: Performed By: #### E RUR ####[facility] Iapqeriuqa[address] [place], [place] [address]Dr. Rubyyvan Malone UR MICRO IND NOT INDICATED Normal [facility] Comment on above: Performed By: #### E RUR ####[facility] Gecgbphxjv[address] [place], [place] [address]Dr. Rubyyvan Malone Urobilinogen Qn (U) 1.0 {Jermain'U}/dL Normal 0.2 - 1. 0 [facility] Comment on above: Performed By: #### E RUR ####[facility] Kvnvozwjmc[address] [place], [place] [address]Dr. Donna Faisal ETHANOL (BLD ALC)on 05-13-20 ALC NOTE NOTE: 80 mg/dl is th e legal limit for a blood alcohol level Normal [facility] Comment on above: Performed By: #### E TH ####[facility] Zupofqwzcp[address] [place], [place] [address]Dr. Donna Malone Ethanol [Mass/Vol] mg/dL Normal [facility] Comment on above: Performed By: #### E TH ####[facility] Gotdpvxobn5977 [place] [address]Dr. Donna Malone LACTATE/LACTIC ACIDon 2021 Lactate [Moles/Vol] 1.7 mmol/L Normal 0.4-1.9 [facility] Comment on above: Performed By: #### L ACT ####[facility] [address]qehwrytqm[address] [place], [place] [address]Dr. Donna Malone POINT OF CARE GLUCOSEon Glucose [Mass/Vol] 99 mg/dL Normal 74-106 [facility] Comment on above: Performed By: #### P OCGLUC ####[facility] Rprzbneczd[address] [place], [place] [address]Dr. Donna Malone PROF 14(COMP METB)on 022 Albumin [Mass/Vol] 3.1 g/dL Critically low 3.4-5.0 [facility] Comment on above: Performed By: #### C MP, CMADM, BNP ####[facility] Xbdrezzlak[address] [place], [place] [address]Dr. Donna Malone Albumin/Globulin [Mass ratio] 1.0 {ratio} Normal [facility] Comment on above: Performed By: #### C MP, CMADM, BNP ####[facility] Yzalchnadr[address] [place] [address]Dr. Donna Malone ALP [Catalytic activity/Vol] 37 U/L Critically low 46-116 [facility] Comment on above: Performed By: #### C MP, CMADM, BNP ####[facility] Ojehizvfjj1287 [place] [address]Dr. Donna Malone ALT [Catalytic activity/Vol] 14 U/L Critically low 16-63 [facility] Comment on above: Performed By: #### C MP, CMADM, BNP ####[facility] Kceohifhzz9663 [place] [address]Dr. Donna Malone Anion gap [Moles/Vol] 12.3 mmol/L Normal [facility] Comment on above: Performed By: #### C MP, CMADM, BNP ####[facility] Dvjcxuzizt7439 [place] [address]Dr. Donna Malone AST [Catalytic activity/Vol] 12 U/L Critically low 15-37 [facility] Comment on above: Performed By: #### C MP, CMADM, BNP ####[facility] Mjuojmajvf8596 [place] [address]Dr. Donna Malone Bilirubin [Mass/Vol] 0.4 mg/dL Normal 0.2-1.0 [facility] Comment on above: Performed By: #### C MP, CMADM, BNP ####[facility] Gvvxigywpr08[address] [place] [address]Dr. Donna Malone Calcium [Mass/Vol] 7.8 mg/dL Critically low 8.5-10.1 [facility] Comment on above: Performed By: #### C MP, CMADM, BNP ####[facility] Epnrlxjvji[address] [place], [place] [address]Dr. Donna Malone Chloride [Moles/Vol] 108 mmol/L Critically high 98-107 [facility] Comment on above: Performed By: #### C MP, CMADM, BNP ####[facility] [address]xcftjr[address] [place], [place] [address]Dr. Donna Malone CO2 [Moles/Vol] 24.8 mmol/L Normal 21.0-32.0 [facility] Comment on above: Performed By: #### C MP, CMADM, BNP ####[facility] [address]jousxexx[address] [place], [place] [address]Dr. Donna Malone Creatinine [Mass/Vol] 1.83 mg/dL Critically high 0.70-1.30 [facility] Comment on above: Performed By: #### C MP, CMADM, BNP ####[facility] [address]iyeix[address]qs[address] [place], [place] [address]Dr. Donna Malone EGFR-AF EMIRATI 45 mL/min/1.73m2 Critically low >=60 [facility] Comment on above: Performed By: #### C MP, CMADM, BNP ####[facility] Gpdmpnoveg28[address] [place] [address]Dr. Donna Malone EGFR-NON AF EMIRATI 37 mL/min/1.73m2 Critically low >=60 [facility] Comment on above: Performed By: #### C MP, CMADM, BNP ####[facility] Ljtvpybevw42[address] [place] [address]Dr. Donna Malone Globulin (S) [Mass/Vol] 3.2 g/dL Normal [facility] Comment on above: Performed By: #### C MP, CMADM, BNP ####[facility] Twgstsaigx76[address] [place] [address]Dr. Donna Malone Glucose [Mass/Vol] 202 mg/dL Critically high 74-106 [facility] Comment on above: Performed By: #### C MP, CMADM, BNP ####[facility] Yviadsuumj0754 [place] [address]Dr. Donna Malone Potassium [Moles/Vol] 4.1 mmol/L Normal 3.5-5.1 [facility] Comment on above: Performed By: #### C MP, CMADM, BNP ####[facility] Fqrujpfhwk4841 [place] [address]Dr. Donna Malone Protein [Mass/Vol] 6.3 g/dL Critically low 6.4-8.2 [facility] Comment on above: Performed By: #### C MP, CMADM, BNP ####[facility] Uapicmvlpc[address] [place] [address]Dr. Donna Malone Sodium [Moles/Vol] 141 mmol/L Normal 136-145 [facility] Comment on above: Performed By: #### C MP, CMADM, BNP ####[facility] Tfupinhkzl27[address] [place] [address]Dr. Donna Malone Urea nitrogen [Mass/Vol] 32.0 mg/dL Critically high 7.0-18.0 [facility] Comment on above: Performed By: #### C MP, CMADM, BNP ####[facility] Jsrmtnmdab2198 [place] [address]Dr. Donna Malone Urea nitrogen/Creatinine [Mass ratio] 17.5 mg/mg Normal [facility] Comment on above: Performed By: #### C MP, CMADM, BNP ####[facility] Znrgyomkih[address] [place] [address]Dr. Donna aMlone PROTIMEon 05-13-2022 INR Coag (PPP) [Relative time] 1.04 {INR} Normal [facility] Comment on above: Performed By: #### P T, PTT ####[facility] Rcbtagbwyy34[address] [place] [address]Dr. Donna Malone INR GUIDELINES SEE BELOW Normal [facility] Comment on above: Result Comment: FLORESITA RED INR: 2.0 - 3.0 CONDITIONS NOT LISTED BELOW 2.5 - 3.5 FOR PROSTHETIC HEART VALVE REPLACEMENT 2.5 - 3.5 RECURRENT THROMBOSIS Performed By: #### P T, PTT ####[facility] Qsqqsezqlz4184 [place] [address]Dr. Donna Malone PT Coag (PPP) [Time] 11.2 s Normal 9.0-11.6 [facility] Comment on above: Performed By: #### P T, PTT ####[facility] Ikaqqsdlry[address] [place] [address]Dr. Donna Malone PTTon 05-13-2022 aPTT Coag (Bld) [Time] 27.5 s Normal 22.3-36.2 [facility] Comment on above: Performed By: #### P T, PTT ####[facility] Aydecklcvw[address] [place] [address]Dr. Donna Malone XR CHEST 1 Von 05-13-2022 XR CHEST 1 V Normal [facility] Ambulatory Visit Summaryon 0 10-03-2021 Ambulatory [...] physician if questions or concerns acetaminophen acetaminophen-hydrocodone (Stanley 5/325 Tab) amlodipine (amLODIPine 5 mg Tab) [...] [facility] [address] [place] [address]- Medications What How Much When Instructions New ciprofloxacin (Cipro 500 mg Tab) 1 Tablets By Mouth Every day Take 1 tablet the day before the procedure and 1 tablet after the procedure Pickup at [facility] Unchanged acetaminophen 650 Milligram Every 4 hours Contact prescribing physician if questions or concerns Unchanged acetaminophen-hydrocodone (Stanley 5/ 325 Tab) 1 Tablets By Mouth [...] physician if questions or concerns Pharmacy Information [facility] #[facility]: [address] [place], [place] [id number] [phone] (more content not included)... Normal [facility] Ambulatory Visit Summary TAYLOR MCCLELLAN SR [...] physician if questions or concerns acetaminophen acetaminophen-hydrocodone (Stanley 5/325 Tab) amlodipine (amLODIPine 5 mg Tab) [...] [facility] [address], [place] [address]- Medications What How Much When Instructions New ciprofloxacin (Cipro 500 mg Tab) 1 Tablets By Mouth Every day Take 1 tablet the day before the procedure and 1 tablet after the procedure Pickup at [facility] Unchanged acetaminophen 650 Milligram Every 4 hours Contact prescribing physician if questions or concerns Unchanged acetaminophen-hydrocodone (Stanley 5/ 325 Tab) 1 Tablets By Mouth [...] physician if questions or concerns Pharmacy Information [facility]: [address] [place] [id number] [phone] (more content not included)... Normal [facility] Recordson 10-03 Penitentiary Records [id number] [facility] Patient Educationon 10-03-19 Patient Education Urology [...] Follow these instructions at home: ? Take sdek-rol-diyoevv and prescription medicines only as told by [...] You d (more content not included)... Normal [facility] Urology Office/Clinic Noteon 10-03-2021 Urology Office/Clinic Note Chief Complaint This is a 66 year old male in the [place] on 09/14/21. This patient has a [...] [facility] 10/30/18. Pt. was seen in the [facility] ER on 09/14/21 due to generalized weakness. [...] recently. Family was in the hospital at [place] where he had severe weakness. A Galindo [...] last seen in 2018. Patient was in [facility] 09/14/21 due to weakness and acute [...] dribbling) moderate, (more content not included)... Normal [facility] Comment on above: Result Comment: Elec tronically Signed By: Sharad Grossman MD, Lisandro Espinal\.br\Date and Time Signed: 10/03/21 12:37 EST\.br\Electronically Co-Signed By: Lisandra Arias\.br\Date and Time Co-Signed: 10/03/21 12:32 EST APTTon 10-13-2019 aPTT Coag (Bld) [Time] 34.9 s Normal 25.0-35.0 Th e [facility] Comment on above: Result Comment: [...] THIS PURPOSE. Performed By: #### 5 6101, [address]653 #### [facility] [address] [place] [address], [facility] CREATININE BLOODon 0 Creatinine [Mass/Vol] 1.07 mg/dL Normal 0.70-1.30 [facility] Comment on above: Performed By: #### 2 5656 #### [facility] [address] Creatinine [Mass/Vol] mg/dL Normal >60 [facility] Comment on above: Performed By: #### 2 5656 #### [facility] [address] [place], [place] [id number] [place] [address] CT LUMBAR SPINE W CONTRASTon 10-13-2019 CT LUMBAR SPINE W CONTRAST [facility] Department of Radiology [address] [place] [address] Patient Name: TAYLOR MCCLELLAN : 1955 Sex: M Age: Race: White Pt. Location: Patient Status: O Ordered Date: 09/11/2019 2:50:00 PM Completed Date: 10/13/2019 11:37 AM Requesting Provider: JASEN HOWARD Attending Provider: JASEN HOWARD Report Copy To: LUI BRYSON Signs & Symptoms: M51.36 Other intervertebral disc degeneration, lumbar region I10 History: [place] Need Saturday appointment call [facility] [phone] [facility] auth# [id number] 09/16/19-10/15/19 cpt code 72718 *mla Comments: Exam: CT LUMBAR SPINE W [...] achievable Electronically signed: Fredy Salmeron. Transcribed by: [email or web address], User Resident: Electronically Signed by: FREDY SALMERON @ 10/13/2019 02:08 PM Normal [facility] LUMBAR MYELOGRAMon 0 LUMBAR MYELOGRAM [facility] Department of Radiology [address] [place] [id number] Patient Name: TAYLOR MCCLELLAN : 1955 Sex: M Age: Race: White Pt. Location: 84 Patient Status: O Ordered Date: 09/11/2019 2:50:00 PM Completed Date: 10/13/2019 10:49 AM Requesting Provider: JASEN HOWARD Attending Provider: JASEN HOWARD Report Copy To: LUI BRYSON Signs & Symptoms: M51.36 Other intervertebral disc degeneration, lumbar region I10 History: [place] Need Saturday appointment Patient will need labs, [...] risks are acceptable. Consent was obtained. Timeout: [place] protocol timeout verification performed. PROCEDURE: Estimated blood [...] reports Electronically signed: Fredy Salmeron. Transcribed by: [email or web address], User Resident: KRISTINE BALLARD Electronically Signed by: FREDY SALMERON @ 10/13/2019 06:58 PM I personally read this/these film(s) with this resident Normal [facility] Comment on above: Order Comment: , , = ========= , Ordering Provider - JASEN HOWARD MD , PROTHROMBIN TIMEon 0 INR Coag (PPP) [Relative time] 1.05 {INR} Normal 0.91-1.16 [facility] Comment on above: Result Comment: [...] CHEST 1995;[id number]. Performed By: #### 5 [id number], [id number] #### [facility] [address] [facility]. [address] PT Coag (PPP) [Time] 13.7 s Normal 12.3-14.8 [facility] Comment on above: Result Comment: ALL RESULTS MUST BE INTERPRETED WITH RESPECT TO BLOOD DRAWING ARTIFACT OR DILUTION ERROR OF ANTICOAGULANT AT THE TIME OF SAMPLING. Performed By: #### 5 [id number], [id number] #### [facility] [address] [facility]. [address] Laboratory Studieson 019 HBV surface Ab Ql (S) Non reactive [facility] Work Phone: Comment on above: Non Reactive: Incons istent with immunity, less than 10 mIU/mL Reactive: Consistent with immunity, greater than 9.9 mIU/mL HBV surface Ag IA Ql Negative [facility] Work Phone: Comment on above: Performed at: [address] [id number] Functional Director: Arnold Cabral PhD, Phone: [phone] HCV Ab Signal/Cutoff IA RelACnc 0.1 s/co ratio [facility] Work Phone: Hepatitis C Antibody Comment See comment [facility] Work Phone: Comment on above: Non reactive HCV ant ibody screen is consistent with no HCV infection, unless recent infection is suspected or other evidence exists to indicate HCV infection. HIV 1+2 Ab IA Ql Nonreactive [facility] Work Phone: Laboratory Studieson 018 Glucose mass conc Glu2: cleaned meter [facility] Work Phone: Glucose mass conc 121 mg/dL [facility] Work Phone: Comment on above: Random Glucose Refer ence Range is dependent on time and content of last meal. Glucose of more than 200 mg/dL in a nonstressed, ambulatory subject supports the diagnosis of Diabetes Mellitus. Calcium mass conc 8.7 mg/dL 8.2-10.2 [facility] Work Phone: Chloride molar conc 102 mmol/L 95-114 [facility] Work Phone: CO2 molar conc 27.5 mmol/L 22.0-30.0 [facility] Work Phone: Creatinine mass conc 1.08 mg/dL 0.64-1.27 [facility] Work Phone: GFR/1.73 sq M predicted among blacks MDRD vol rate/area (S/P/Bld) mL/min/{1.73_m2} [facility] Work Phone: Comment on above: GFR estimated refere nce range: According to KDOQI guidelines, <60 ml/min/1.73m2 is sufficient to diagnose a patient with chronic kidney disease. GFR/1.73 sq M predicted among non-blacks MDRD vol rate/area (S/P/Bld) mL/min/{1.73_m2} [facility] Work Phone: Glucose mass conc 86 mg/dL 70-100 [facility] Work Phone: Comment on above: ADA recommended refe rence range Random Glucose Reference Range is dependent on time and content of last meal. Glucose of more than 200 mg/dL in a nonstressed, ambulatory subject supports the diagnosis of Diabetes Mellitus. Pharmacy Creatinine Clearance (Chem 88.1842 [facility] Work Phone: Potassium molar conc 3.5 mmol/L 3.5-5.1 [facility] Work Phone: Sodium molar conc 139 mmol/L 136-146 [facility] Work Phone: Urea nitrogen mass conc 10 mg/dL 9-23 [facility] Work Phone: Laboratory Studieson 018 Basophils #/vol (Bld) 0.1 10*3/uL 0.0-0.2 [facility] Work Phone: Basophils/100 WBC (Bld) 1.0 % [facility] Work Phone: Eosinophils #/vol (Bld) 0.2 10*3/uL 0.0-0.45 [facility] Work Phone: Eosinophils/100 WBC (Bld) 2.8 % [facility] Work Phone: Erythrocyte distribution width Ratio (RBC) 13.9 % 12.0-14.8 [facility] Work Phone: Hematocrit Volume Fraction (Bld) 36.3 % Low 38.8-50.0 [facility] Work Phone: Hemoglobin mass conc (Bld) 12.5 g/dL Low 13.0-17.0 [facility] Work Phone: Lymphocytes #/vol (Bld) 1.6 10*3/uL 1.00-4.8 [facility] Work Phone: Lymphocytes/100 WBC (Bld) 23.7 % [facility] Work Phone: MCH Entitic mass (RBC) 28.9 pg 27.5-35.2 [facility] Work Phone: MCHC mass conc (RBC) 34.3 g/dL 32.5-35.6 [facility] Work Phone: MCV Entitic volume (RBC) 84.4 fL 83.5-101 [facility] Work Phone: Monocytes #/vol (Bld) 0.4 10*3/uL 0.0-0.8 [facility] Work Phone: Monocytes/100 WBC (Bld) 6.7 % [facility] Work Phone: Neutrophils #/vol (Bld) 4.4 10*3/uL 1.8-7.7 [facility] Work Phone: Neutrophils/100 WBC (Bld) 65.8 % [facility] Work Phone: Platelet mean volume Entitic volume (Bld) 10.3 fL High 6.6-10.1 [facility] Work Phone: Platelets #/vol (Bld) 199 10*3/uL 150-450 [facility] Work Phone: RBC #/vol (Bld) 4.31 10*6/uL 3.90-5.60 [facility] Work Phone: WBC #/vol (Bld) 6.6 10*3/uL 4.1-10.[address] [facility] Work Phone: Laboratory Studieson 018 Appearance Nom (U) Slightly cloudy Abnormal [facility] Work Phone: Bacteria Auto Ql (U) None seen [facility] Work Phone: Bilirubin Ql (U) Negative [facility] Work Phone: Color Nom (U) Yellow [facility] Work Phone: Creatinine mass conc (U) 143.4 mg/dL [facility] Work Phone: Comment on above: No reference range e stablished Epithelial cells Auto #/area (Urine sed) Rare /HPF [facility] Work Phone: Glucose Automated test strip mass conc (U) Normal mg/dL [facility] Work Phone: Hemoglobin Automated test strip Ql (U) 1+ High [facility] Work Phone: Ketones mass conc (U) 1+ High [facility] Work Phone: Leukocyte esterase Automated test strip Ql (U) Negative [facility] Work Phone: Nitrite Automated test strip Ql (U) Negative [facility] Work Phone: pH (U) 5.5 [pH] 5.0-9.0 [facility] Work Phone: pH (U) [pH] 1.001-1.03 0 [facility] Work Phone: Protein mass conc (U) Negative [facility] Work Phone: RBC Auto #/area (Urine sed) 1-2 /HPF [facility] Work Phone: Sodium molar conc (U) 144.0 mmol/L [facility] Work Phone: Comment on above: No reference range e stablished Urate crystals LM.HPF #/area (Urine sed) 3 /[HPF] [facility] Work Phone: Urobilinogen mass conc (U) Normal mg/dL [facility] Work Phone: WBC Auto #/area (Urine sed) None seen /HPF [facility] Work Phone: Albumin mass conc 2.7 g/dL Low 3.2-5.5 [facility] Work Phone: Albumin/Globulin mass ratio 0.8 {ratio} [facility] Work Phone: ALP enzyme act/vol 39 U/L 32-92 [facility] Work Phone: ALT No additional P-5'-P enzyme act/vol 14 U/L 10-60 [facility] Work Phone: AST enzyme act/vol 25 U/L 10-42 [facility] Work Phone: Bilirubin mass conc 0.6 mg/dL 0.3-1.2 [facility] Work Phone: Globulin mass conc (S) 3.6 g/dL [facility] Work Phone: Protein mass conc 6.3 g/dL 6.1-7.9 [facility] Work Phone: Laboratory Studieson 018 T3 free mass conc 3.28 pg/mL 2.50-3.90 [facility] Work Phone: T4 free mass conc 0.95 ng/dL 0.61-1.12 [facility] Work Phone: Amphetamines Ql (U) Negative [facility] Work Phone: Barbiturates Ql (U) Negative [facility] Work Phone: Benzodiazepines Ql (U) Positive High [facility] Work Phone: Cannabinoids Screen Ql (U) Negative [facility] Work Phone: Comment on above: These are unconfirme d results and should not be used for legal purposes. Drug Cut-Off Concentration: AMPH 1000 ng/mL EWA 200 ng/mL JOHN 200 ng/mL COCM 300 ng/mL OP 300 ng/mL PCP 25 ng/mL THC 20 ng/mL Cocaine Ql (U) Negative [facility] Work Phone: Opiates Ql (U) Positive High [facility] Work Phone: Phencyclidine Ql (U) Negative [facility] Work Phone: Ammonia mass conc (Unsp spec) 20 umol/L 11-35 [facility] Work Phone: Bilirubin.direct mass conc 0.2 mg/dL 0.0-0.4 [facility] Work Phone: Bilirubin.indirect mass conc 0.8 mg/dL [facility] Work Phone: Cobalamin (Vitamin B12) mass conc 365 pg/mL 180-914 [facility] Work Phone: Folate mass conc 12.4 ng/mL [facility] Work Phone: Comment on above: Folate reference ran ge: >5.9 ng/ml The WHO technical consultation on folate and vitamin b12 deficiencies has determined that folate concentrations less than 4 ng/ml are considered deficient. Magnesium molar conc (Unsp spec) 1.7 mg/dL 1.6-2.6 [facility] Work Phone: Thyrotropin Qn 0.20 uIU/mL Low 0.45-5.33 [facility] Work Phone: Comment on above: Revised TSH Assay This assay is standardized to the World Health Organization International Standard for human TSH. Please note Reference Intervals have changed. Laboratory Studieson 018 Casts LM Nom (Urine sed) N/A [facility] Work Phone: Epithelial cells.renal LM.HPF #/area (Urine sed) Rare /HPF [facility] Work Phone: Hyaline casts Auto #/vol (U) 20-49 /LPF High [facility] Work Phone: Lactate molar conc (U) 0.9 mmol/L [facility] Work Phone: CK enzyme act/vol 107 U/L 22-269 [facility] Work Phone: Phosphate mass conc 5.0 mg/dL High 2.5-4.6 [facility] Work Phone: Laboratory Studieson 017 Glucose mass conc 122 mg/dL [facility] Work Phone: Comment on above: RANDOM GLUCOSE REFER ENCE RANGE IS DEPENDENT ON TIME AND CONTENT OF LAST MEAL.GLUCOSE OF MORE THAN 200MG/DL IN A NONSTRESSED,AMBULATORY SUBJECT SUPPORTS THE DIAGNOSIS OF DIABETES MELLITUS. Laboratory Studieson 07-27-2 017 Basophils #/vol (Bld) 0.1 10*3/uL 0.0-0.2 [facility] Work Phone: Basophils/100 WBC (Bld) 0.9 % [facility] Work Phone: Calcium mass conc 8.6 mg/dL 8.2-10.2 [facility] Work Phone: Chloride molar conc 109 mmol/L 95-114 [facility] Work Phone: CK enzyme act/vol 355 U/L High 22-269 [facility] Work Phone: CO2 molar conc 19.5 mmol/L Low 22.0-30.0 [facility] Work Phone: Creatinine mass conc 0.99 mg/dL 0.64-1.27 [facility] Work Phone: Eosinophils #/vol (Bld) 0.20 10*3/uL 0.0-0.45 [facility] Work Phone: Eosinophils/100 WBC (Bld) 3.3 % [facility] Work Phone: Erythrocyte distribution width Ratio (RBC) 13.8 % 12.0-14.8 [facility] Work Phone: Estimated GFR (Non- > 60 [facility] Work Phone: GFR/1.73 sq M.predicted MDRD (S/P/Bld) [Vol rate/Area] mL/min/{1.73_m2} [facility] Comment on above: GFR estimated refere nce range: According to KDOQI guidelines, <60 ml/min/1.73m2 is sufficient to diagnose a patient with chronic kidney disease. GFR/1.73 sq M.predicted MDRD vol rate/area mL/min/{1.73_m2} [facility] Work Phone: Comment on above: GFR estimated refere nce range: According to KDOQI guidelines, <60 ml/min/1.73m2 is sufficient to diagnose a patient with chronic kidney disease. Glucose mass conc 94 mg/dL 70-100 [facility] Work Phone: Comment on above: ADA RECOMMENDED REFE RENCE RANGE Hematocrit Volume Fraction (Bld) 41.5 % 38.8-50.0 [facility] Work Phone: Hemoglobin mass conc (Bld) 14.1 g/dL 13.0-17.0 [facility] Work Phone: Lymphocytes #/vol (Bld) 2.6 10*3/uL 1.00-4.8 [facility] Work Phone: Lymphocytes/100 WBC (Bld) 40.3 % [facility] Work Phone: MCH Entitic mass (RBC) 30.4 pg 27.5-35.2 [facility] Work Phone: MCHC mass conc (RBC) 34.1 g/dL 32.5-35.6 [facility] Work Phone: MCV Entitic volume (RBC) 89.2 fL 83.5-101 [facility] Work Phone: Monocytes #/vol (Bld) 0.4 10*3/uL 0.0-0.8 [facility] Work Phone: Monocytes/100 WBC (Bld) 6.4 % [facility] Work Phone: Neutrophils #/vol (Bld) 3.1 10*3/uL 1.8-7.7 [facility] Work Phone: Neutrophils (%) (Auto) 49.1 % [facility] Work Phone: Neutrophils/100 WBC (Bld) 49.1 % [facility] Platelet mean volume Entitic volume (Bld) 10.7 fL High 6.6-10.1 [facility] Work Phone: Platelets #/vol (Bld) 160 10*3/uL 150-450 [facility] Work Phone: Potassium molar conc 3.4 mmol/L Low 3.5-5.1 [facility] Work Phone: RBC #/vol (Bld) 4.65 10*6/uL 3.90-5.60 [facility] Work Phone: Sodium molar conc 138 mmol/L 136-146 [facility] Work Phone: Urea nitrogen mass conc 7 mg/dL Low 9-23 [facility] Work Phone: WBC #/vol (Bld) 6.4 10*3/uL 4.1-10.[address] [facility] Work Phone: Laboratory Studieson 017 Platelet Aggregation (ADP) 57.8 % 0-100 [facility] Work Phone: Comment on above: NO REFERENCE RANGE I S ESTABLISHED OR APPLICABLE Platelet Inhibition ADP 42.2 % 0-100 [facility] Work Phone: Comment on above: NO REFERENCE RANGE I S ESTABLISHED OR APPLICABLE TEG Max Amplitude (Citrated) 69.9 mm 50-70 [facility] Work Phone: TEG Max Amplitude (Rapid) 29.9 0-90 [facility] Work Phone: Comment on above: TEG MA A HAS NO REFE RENCE RANGE Thrombelastograph (TEG) Net G ADP 53.0 MM 0-90 [facility] Work Phone: Comment on above: TEG MA ADP HAS NO RE FERENCE RANGE Albumin mass conc 3.1 g/dL Low 3.2-5.5 [facility] Work Phone: Albumin/Globulin mass ratio 1.0 {ratio} [facility] Work Phone: ALP enzyme act/vol 44 U/L 32-92 [facility] Work Phone: ALT enzyme act/vol 18 U/L 10-60 [facility] Work Phone: AST enzyme act/vol 27 U/L 10-42 [facility] Work Phone: Bilirubin Ql (U) 0.6 mg/dL 0.3-1.[address] [facility] Work Phone: Bilirubin.direct mass conc 0.1 mg/dL 0.0-0.4 [facility] Work Phone: Bilirubin.indirect mass conc (Body fld) 0.5 mg/dL [facility] Work Phone: Cholesterol in HDL mass conc 26 mg/dL Low 29-71 [facility] Work Phone: Comment on above: HDL CHOL ATP-III CLA SSIFICATION Cardiovascular Risk HDL > or equal to 60 mg/dL Low HDL < 40 mg/dL High Cholesterol mass conc 150 mg/dL 140-200 [facility] Work Phone: Comment on above: CHOL less than 200 m g/dL Low risk CHOL 201-239 mg/dL Borderline risk CHOL 240 mg/dL and greater High risk Cholesterol mass conc 30 mg/dL [facility] Work Phone: Cholesterol.total/Chol esterol in HDL mass ratio 5.8 {ratio} [facility] Work Phone: Globulin mass conc (S) 3.2 g/dL [facility] Work Phone: LDL Cholesterol, Calculated 93 mg/dL 0-100 [facility] Work Phone: Comment on above: LDL ATP III CLASSIFI CATION LDL less than 100 mg/dL Optimal LDL 100-129 mg/dL Near or above optimal LDL 130-159 mg/dL Borderline high LDL 160-189 mg/dL High LDL greater than 189 mg/dL Very high Protein mass conc 6.3 g/dL 6.1-7.9 [facility] Work Phone: Thyrotropin Qn 1.12 uIU/mL 0.45-5.33 [facility] Work Phone: Comment on above: Revised TSH Assay This assay is standardized to the World Health Organization International Standard for human TSH. Please note Reference Intervals have changed. Triglyceride mass conc 153 mg/dL High 35-149 [facility] Work Phone: Comment on above: TRIG ATP III CLASSIF ICATION TRIG less than 150 mg/dL Normal TRIG 150-199 mg/dL Borderline high TRIG 200-500 mg/dL High TRIG greater than 500 mg/dL Very high Standard traceable to the Center for Disease Conrtrol and Prevention (CDC) test method. Laboratory Studieson 017 Glucose mass conc Glu2: cleaned meter [facility] Work Phone: Ammonia mass conc (P) 19 umol/L 11-35 [facility] Work Phone: Cobalamin (Vitamin B12) mass conc 202 pg/mL 180-914 [facility] Work Phone: Folate 10.7 ng/mL [facility] Work Phone: Comment on above: FOLATE REFERENCE RAN GE: >5.9 ng/mL The WHO Technical Consultation on folate and vitamin B12 deficiencies has determined that folate concentrations less than 4 ng/mL are considered deficient. Amphetamines Ql (U) Negative [facility] Work Phone: Appearance Nom (U) Clear [facility] Work Phone: Bacteria LM.HPF #/area (Urine sed) None seen [facility] Work Phone: Benzodiazepines Ql (U) Positive High [facility] Work Phone: Bilirubin Ql (U) Negative [facility] Work Phone: Cocaine Ql (U) Negative [facility] Work Phone: Color Nom (U) Yellow [facility] Work Phone: Epithelial cells.squamous LM.HPF #/area (Urine sed) 5-9 /hpf High [facility] Work Phone: Glucose mass conc (U) 250 mg/dL High [facility] Work Phone: Hyaline casts LM Ql (Urine sed) 0-8 /lpf [facility] Work Phone: Ketones Ql (U) Trace [facility] Work Phone: Leukocyte esterase Test strip Ql (U) Negative [facility] Work Phone: Nitrite Ql (U) Negative [facility] Work Phone: Opiates Ql (U) Negative [facility] Work Phone: pH (U) 5.0 [pH] 5.0-9.0 [facility] Work Phone: Phencyclidine Ql (U) Negative [facility] Work Phone: Protein Ql (U) Negative [facility] Work Phone: RBC #/vol (U) 50-100 /hpf [facility] Work Phone: Specific gravity Relative Density (U) 1.039 High 1.001-1.03 0 [facility] Work Phone: Urine Barbiturates Screen Negative [facility] Work Phone: Urine Collection Type Type [facility] Work Phone: Comment on above: CATHETERIZED Urine Drug Screen Comment See comment [facility] Work Phone: Comment on above: THESE ARE UNCONFIRME D RESULTS AND SHOULD NOT BE USED FOR LEGAL PURPOSES. DRUG CUT-OFF CONCENTRATION: AMPH 1000 ng/mL EWA 200 ng/mL JOHN 200 ng/mL COCM 300 ng/mL OP 300 ng/mL PCP 25 ng/mL THC 20 ng/mL Urine Marijuana (THC) Screen Negative [facility] Work Phone: Urine Occult Blood 3+ High [facility] Work Phone: Urine Transitional Epithelial Cells 3-4 /hpf [facility] Work Phone: Urobilinogen Qn (U) Normal mg/dL [facility] Work Phone: WBC #/vol (U) 0-1 /hpf [facility] Work Phone: Bedside Ionized Calcium (Deepti) 1.22 mmol/L 1.12-1.32 [facility] Work Phone: Bedside Total CO2 23 mmol/L 23-29 [facility] Work Phone: Chloride molar conc 110.0 mmol/L High 98-109 [facility] Work Phone: Creatinine mass conc 1.2 mg/dL 0.6-1.3 [facility] Work Phone: Comment on above: ER/ESD PHYSICIAN IS NOTIFIED/SHOWN ALL ISTAT RESULTS. CRITICAL VALUES MAY BE CONFIRMED BY LABORATORY TESTING IF DEEMED NESCESSARY BY ER ATTENDING DOCTOR Glucose mass conc 135 mg/dL High 70-105 [facility] Work Phone: Hematocrit Volume Fraction (Bld) 48.0 % 38.0-51.0 [facility] Work Phone: Hemoglobin mass conc (Bld) 16.3 g/dL 12.0-17.0 [facility] Work Phone: Potassium molar conc 4.7 mmol/L 3.5-4.9 [facility] Work Phone: Sodium molar conc 144 mmol/L 138-146 [facility] Work Phone: Urea nitrogen mass conc 15 mg/dL 8-26 [facility] Work Phone: Amylase enzyme act/vol 39 U/L 28-100 [facility] Work Phone: CK.MB mass conc 9.5 ng/mL High 0.6-6.3 [facility] Work Phone: Creatine Kinase MB Relative Index 1.5 0.00-2.50 [facility] Work Phone: Ethyl Alcohol Level < 5 mg/dL [facility] Work Phone: Glucose mass conc 140 mg/dL High 70-100 [facility] Work Phone: Comment on above: RANDOM GLUCOSE REFER ENCE RANGE IS DEPENDENT ON TIME AND CONTENT OF LAST MEAL.GLUCOSE OF MORE THAN 200MG/DL IN A NONSTRESSED,AMBULATORY SUBJECT SUPPORTS THE DIAGNOSIS OF DIABETES MELLITUS. Lipase enzyme act/vol 22.0 U/L 22-51 [facility] Work Phone: Percent Ethyl Alcohol < 0.005 % [facility] Work Phone: Troponin I.cardiac mass conc ng/mL 0-0.02 [facility] Work Phone: Comment on above: DAM[place] Cut off value > or equal to 0.03 ng/mL in conjunction with clinical conditions of myocardial infarction. (www.escardio.org/guidelines) Glucose mass conc 134 mg/dL [facility] Work Phone: Hemoglobin A1c/Hemoglobin.total mass fraction (Bld) 6.3 % High 4.3-5.6 [facility] Work Phone: Comment on above: Increased risk for d iabetes: 5.7 - 6.4 Diabetes: >6.4 Glycemic control for adults with diabetes: <7.0 Vital Signs Date Time Vital Sign Value Performing Clinician Facility 11-05-2022 14:30-0500 Diastolic blood pressure 72 mm[Hg] [address] Other [employer] [facility] [employer] Other 11-05-2022 14:30-0500 SaO2% (BldA) [Mass fraction] 97 % [address] Other [employer] [facility] Other 11-05-2022 14:30-0500 Systolic blood pressure 118 mm[Hg] [address] Other [employer] [facility] Other 10-18-2022 14:00-0500 Body weight 96.[address] Other [employer] Other 10-18-2022 14:00-0500 Diastolic blood pressure 64 mm[Hg] [address] Other [employer] Other 10-18-2022 14:00-0500 SaO2% (BldA) [Mass fraction] 98 % [address] Other [employer] Other 10-18-2022 14:00-0500 Systolic blood pressure 120 mm[Hg] [address] Other [employer] Other 07-20-2022 16:00-0500 Body temperature 97.4 [degF] MD Genesis Reynolds Work Phone: [facility] 07-20-2022 16:00-0500 Diastolic blood pressure 72 mm[Hg] MD Genesis Reynolds Work Phone: [facility] 07-20-2022 16:00-0500 Heart rate 61 /min MD Genesis Reynolds Work Phone: [facility] 07-20-2022 16:00-0500 Respiratory rate 16 /min MD Genesis Reynolds Work Phone: [facility] 07-20-2022 16:00-0500 SaO2% (BldA) [Mass fraction] 98 % MD Genesis Reynolds Work Phone: [facility] 07-20-2022 16:00-0500 Systolic blood pressure 159 mm[Hg] MD Genesis Reynolds Work Phone: [facility] 07-20-2022 06:00-0500 Body weight 95.3 kg MD Genesis Reynolds Work Phone: [facility] 07-18-2022 11:22-0500 Body height 177.8 cm MD Genesis Reynolds Work Phone: [facility] 07-17-2022 22:14-0500 Body height 177.8 cm MD Genesis Reynolds Work Phone: [facility] 07-17-2022 22:14-0500 Body temperature 97.5 [degF] MD Genesis Reynolds Work Phone: [facility] 07-17-2022 22:14-0500 Body weight 95.9 kg MD Genesis Reynolds Work Phone: [facility] 07-17-2022 22:14-0500 Diastolic blood pressure 87 mm[Hg] MD Genesis Reynolds Work Phone: [facility] 07-17-2022 22:14-0500 Heart rate 74 /min MD Genesis Reynolds Work Phone: [facility] 07-17-2022 22:14-0500 Respiratory rate 16 /min MD Genesis Reynolds Work Phone: [facility] 07-17-2022 22:14-0500 SaO2% (BldA) [Mass fraction] 99 % MD Genesis Reynolds Work Phone: [facility] 07-17-2022 22:14-0500 Systolic blood pressure 180 mm[Hg] MD Genesis Reynolds Work Phone: [facility] 02-13-2018 14:12-0400 Body Temperature 98 [degF] [facility] 02-13-2018 14:12-0400 BP Diastolic 74 mm[Hg] Bro [facility] 02-13-2018 14:12-0400 BP Systolic 113 mm[Hg] Bro [facility] 02-13-2018 14:12-0400 Pulse Oximetry 95 % [facility] 02-13-2018 14:12-0400 Respiratory Rate 18 /min [facility] 02-11-2018 22:00-0400 Pulse (Heart Rate) 73 /min Bro Da Silva [facility] Body weight Bro Da Silva [facility] Weight Bro Da Silva [facility] NEGATED: Highlighted row BMI (Body Mass Index) [facility] NEGATED: Highlighted row BMI (Body Mass Index) Bro [facility] NEGATED: Highlighted row Height rBo [facility] NEGATED: Highlighted row Height [facility] Encounters Encounter Date Encounter Type Care Provider Facility Start: 09-09-2024 End: 09-09-2024 ambulatory [facility] Work Phone: Start: 09-09-2024 End: 09-09-2024 Departed Referred Genesis Reynolds MD Work Phone: [facility] Start: 06-24-2024 End: 06-25-2024 Refill Vianey Zaldivar MD Work Phone: [facility] Comment on above: Primary hypertension (CMS/HCC) (Primary Dx) Start: 05-04-[address] [facility] Start: 04-30-[address] [facility] Start: 04-29-2024 End: 05-04-2024 Emergency department patient visit [facility] Start: 03-26-2024 End: 03-26-2024 ambulatory [facility] Start: 02-25-2024 End: 02-25-2024 [facility] Start: 02-17-2024 End: 02-17-2024 ambulatory [facility] Start: 02-17-2024 End: 02-17-2024 Encounter for other preprocedural examination EHAB VOLODYMYRTAHANNAH [facility] Start: 11-10-2023 End: 11-11-2023 ambulatory [facility] Start: 11-10-2023 End: 11-10-2023 Subsequent hospital visit by physician Bro Da Silva MD Work Phone: [facility] Start: 04-26-2023 End: 04-27-2023 ambulatory EBENEZER HOPKINS [facility] Start: 04-25-2023 End: 04-26-2023 Emergency department patient visit BRO BARRY ARMINDAJudy [facility] Start: 01-17-2023 End: 01-17-[address] GENESIS REYNOLDS . Facility:H1 Start: 12-06-2022 End: 12-06-[address] Other [facility] Other Start: 12-06-[address] [facility] [employer] Start: 11-15-2022 End: 11-17-2022 Evaluation and management of inpatient DR GENESIS REYNOLDS . Facility:H1 Start: 11-13-2022 End: 11-13-[address] Other [facility] Other Start: 11-13-[address] [facility] Start: 11-05-2022 End: 11-05-[address] Other [facility] Other Start: 11-05-2022 Office outpatient vi sit [address] [facility] Start: 11-01-2022 End: 11-01-2022 ambulatory MD Genesis Reynolds Work Phone: [facility] Work Phone: Start: 11-01-2022 End: 11-01-2022 Patient encounter procedure MD Genesis Reynolds Work Phone: [facility] Work Phone: Start: 10-26-2022 End: 10-27-[address] GENESIS REYNOLDS . Facility:H1 Start: 10-25-2022 (PROC) PROCEDURE Benson Domingo R[facility] Start: 10-25-2022 End: 10-26-[address] GENESIS REYNOLDS . [facility] Other Start: 10-18-2022 End: 10-18-2022 ambulatory Benson Mcdowellky Other [facility] Other Start: 10-18-2022 Office outpatient ne w [...] of inpatient MD Genesis Reynolds Work Phone: [facility] Start: 07-17-2022 End: 07-20-2022 observation encounter MD Genesis Reynolds Work Phone: [facility] Work Phone: Start: 07-15-2022 End: 07-16-[address] GENESIS REYNOLDS . Facility:H1 Start: 06-21-2022 End: 06-22-[address] GENESIS REYNOLDS . Facility:[facility]1 Start: 05-13-2022 End: 05-16-2022 Evaluation and management of inpatient DR GENESIS REYNOLDS . Facility:[facility]1 Start: 05-07-[address] GENESIS REYNOLDS . Facili ty:H1 Start: 12-17-2019 Preoperative state MD Genesis Reynolds Work Phone: [facility] Start: 12-24-2018 End: 12-24-2018 Patient encounter procedure [facility] Start: 02-08-2018 End: 02-13-2018 Evaluation and management of inpatient Bro [facility] Start: 01-12-2018 End: 01-17-2018 Evaluation and management of inpatient Bro [facility] Start: 04-02-2017 End: 04-05-2017 Evaluation and management of inpatient Bro [facility] Start: 06-09-2006 End: 07-09-2006 Discharged Recurring Bro [facility] Start: 04-09-2006 End: 05-09-2006 Discharged Recurring Bro [facility] Start: 03-09-2006 End: 04-08-2006 Discharged Recurring Bro [facility] Start: 02-22-2006 End: 03-08-2006 Discharged Recurring Bro [facility] Start: 02-10-2006 End: 02-14-2006 Evaluation and management of inpatient Bro [facility] Start: 05-10-2000 End: 06-08-2000 Discharged Recurring Bro [facility] Start: 04-09-2000 End: 05-09-2000 Discharged Recurring Bro [facility] Start: 03-09-2000 End: 04-08-2000 Discharged Recurring Bro Da Silva [facility] Start: 02-08-2000 End: 03-08-2000 Discharged Recurring Bro Da Silva [facility] Start: 01-08-2000 End: 02-07-2000 Discharged Recurring Bro Da Silva [facility] Start: 12-09-1999 End: 02-07-2000 Discharged Recurring Bro Da Silva [facility] Start: 11-08-1999 End: 12-08-1999 Discharged Recurring Bro Da Silva [facility] Start: 10-10-1999 End: 11-07-1999 Discharged Recurring Bro Da Silva [facility] Start: 09-09-1999 End: 10-09-1999 Discharged Recurring Bro Da Silva [facility] Start: 08-09-1999 End: 10-09-1999 Discharged Recurring Bro Da Silva [facility] Start: 07-10-1999 End: 08-08-1999 Discharged Recurring Bro Da Silva [facility] Start: 06-26-1999 End: 07-09-1999 [facility] Start: 03-29-1998 End: 03-29-1998 Patient encounter procedure Bro Da Silva [facility] Start: 02-24-1987 End: 02-28-1987 [facility] management of [facility] Start: 12-22-1986 End: 12-23-1986 Evaluation and management of inpatient Bro Da Silva [facility] Procedures Date Procedure Procedure Detail Performing Clinician Start: 11-10-2023 Urnls dip stick/tabl et reagent auto microscopy Susan Uriostegui DIRECTOR SELECTION AND ADMINISTRATION - DIE MOUNTER Work Phone: Start: 11-01-2022 X-ray of lumbar [...] - Tdap) DTaP/Tdap/Td vaccine (2 - Tdap) [employer] Start: 09-09-2024 Bacteria identified in Blood by Culture Blood Culture [facility] Start: 09-09-2024 [facility] Start: 05-10-2024 Influenza vaccination Influenza Vacc ine (#1) [facility] Start: 04-26-2024 Lipid panel Lipids [facility] [employer] Start: 04-25-2024 GFR test (Diabetes, CKD 3-4, OR last GFR 15-59) GFR test (Diabetes, CKD 3-4, OR last GFR 15-59) [employer] Start: 08-05-2023 Annual Wellness Visi t (Medicare) Annual Wellness Visit (Medicare) [employer] Start: 05-10-2023 COVID-19 Vaccine ( season) COVID-19 Vaccine ( season) [employer] Start: 04-09-2023 Influenza vaccination Flu vaccine (# 1) [facility] [employer] Start: 07-20-2022 [facility] Start: 07-18-2022 Lipid panel [facility] Start: 07-17-2022 Hospital admission [facility] Start: 07-17-2022 Physical therapy procedure [facility] Start: 07-17-2022 Referral to rn midwife [facility] Start: 07-17-2022 Referral to occupational therapist [facility] Start: 07-17-2022 [facility] Start: 07-17-2022 [facility] Start: 11-29-2021 Pneumococcal Vaccine : 65+ Years (2 of 2 - PPSV23 or PCV20) Pneumococcal Vaccine: 65+ Years (2 of 2 - PPSV23 or PCV20) [facility] Start: 2021 Abdominal aortic aneurysm screening AAA screen [employer] Start: 01-24-2021 Pneumococcal 65+ yea rs Vaccine (2 - PPSV23 or PCV20) Pneumococcal 65+ years Vaccine (2 - PPSV23 or PCV20) [employer] Start: 2016 Respiratory Syncytia l Virus (RSV) or age 60 yrs+ (1 - 1-dose 60+ series) Respiratory Syncytial Virus (RSV) or age 60 yrs+ (1 - 1-dose 60+ series) [employer] Start: 2006 Screening for malign ant neoplasm of lung Low dose CT lung screening &/or counseling [employer] Start: 2006 Shingles vaccine (1 of 2) Shingles vaccine (1 of 2) [employer] Start: 2001 Screening for malign ant neoplasm of colon [facility] [employer] Start: 1974 Glaucoma screening Diabetic retinal exam [facility] Start: 1974 Hepatitis C screening Hepatitis C sc reen [facility] Start: 1974 Urine screening for protein Diabetic Alb to Cr ratio (uACR) test [facility] [employer] Start: 1968 Depression Screen Depression Screen [employer] Start: 1966 Diabetic foot examination Diabetic foot exam [facility] Start: 1966 Hemoglobin A1c measurement A1C test (Diabetic or Prediabetic) [employer] Start: 1956 Screening for malign ant neoplasm of colon [facility] Bacteria identified in Blood by Culture Blood Culture [facility] Blood culture for bacteria, including anaerobic screen Blood Culture [facility] End: 11-10-2023 Culture, Urine [employer] Work Phone: Comment on above: Once for 1 Occurrenc es starting 11/10/2023 until 11/10/2023 Patient referral [facility] Work Phone: [facility] Immunizations Immunization Date Immunization Notes Care Provider Fa kamlesh 06-23-2021 influenza virus vacc ine, unspecified formulation Vianey Zaldivar MD Work Phone: [facility] Payers Date Payer Category Payer Medicare MEDICARE [id number] 2011 [facility] [id number] 2009 Unknown [id number] 1959 Medicare [id number] 1959 Unknown [id number] 1956 Unknown [id number] 2.16.840.1.995460.3.57 9.2.593 1956 Unknown [id number] 2.16.840.1.481647.3.57 9.2.593 1956 Unknown [id number] 2.16.840.1.927377.3.57 9.2.593 1956 Unknown [id number] 2.16.840.1.323613.3.57 9.2.593 1956 Unknown [id number] 2.16.840.1.463981.3.57 9.2.593 1956 Unknown [id number] 2.16.840.1.172265.3.57 9.2.593 1956 Unknown [id number] 2.16.840.1.875728.3.57 9.2.593 1956 Unknown [id number] 2.16.840.1.692109.3.57 9.2.593 1956 Unknown [id number] 2.16.840.1.599994.3.57 9.2.593 1956 Unknown [id number] 2.16.840.1.506186.3.57 9.2.593 1956 Unknown [id number] 2.16.840.1.547023.3.57 9.2.356 1956 Unknown [id number] 2.16.840.1.729920.3.57 9.2.356 1956 Unknown [id number] 2.16.840.1.032992.3.57 9.2.356 1956 Unknown [id number] 2.16.840.1.902211.3.57 9.2.356 1956 Unknown [id number] 2.16.840.1.469857.3.57 9.2.356 1956 Unknown [id number] 2.16.840.1.336293.3.57 9.2.356 1956 Unknown [id number] 2.16.840.1.939286.3.57 9.2.173 1956 Unknown [id number] 2.16.840.1.067283.3.57 9.2.1286 1956 Unknown [id number] 2.16.840.1.153912.3.57 9.2.1286 1956 Unknown [id number] 2.16.840.1.676459.3.57 9.2.1286 1956 Unknown [id number] 2.16.840.1.006922.3.57 9.2.1286 Self-pay Unknown [facility] [employer] [id number] Social History Date Type Detail Facility Start: 07-17-2022 End: 07-18-2022 Tobacco smoking status WYIS Smoker (finding) [facility] Start: 1955 Sex Assigned At Male [facility] Start: 04-25-2023 Sex Assigned At [facility] Other Start: 12-26-2016 Tobacco smoking status WYIS Smokes tobacco daily [facility] [employer] History of tobacco use Cigarette Smoker B ON [employer] Start: 12-26-2016 End: 04-25-2023 Cigarettes smoked current (pack per day) - Reported 1.5 [employer] Start: 12-26-2016 Tobacco use and exposure Smokeless tobacco non-user [employer] Start: 04-25-2023 Alcohol intake Current non-drinker of alcohol (finding) [employer] Start: 1955 Sex Assigned At Not on file [facility] [employer] Tobacco smoking stat [facility] Tobacco smoking consumption unknown [facility] Start: 09-12-2024 Sex Male (finding) [facility] Medical Equipment Procedure Code Equipment Code Equipment Origin al Text Equipment Identifier Dates [id number] Start: 12-24-2018 End: 04-11-2019 Glucose test strips Start : 12-24-2018 End: 04-10-2019 Glucose test strips Start : 12-24-2018 End: 04-10-2019 Glucose test strips Start : 12-24-2018 End: 04-10-2019 Glucose test strips Start : 12-24-2018 End: 04-10-2019 Goals Date Patient Goal Desired Activity /State Functional Status Date Assessment Result Facility 07-20-2022 Functional status Patient at Baseline [facility] Work Phone: Mental Status Date Assessment Result Facility 07-20-2022 Cognitive function Cognitive Sta tus Patient at Baseline [facility] Work Phone: Clinical Notes 2018 to 06-25-2024 Telephone Encounter - Susan Uriostegui NP - 06/25/2024 5:07 PM EDTTelephone Encounter - Susan Uriostegui NP - 06/25/2024 5:07 PM EDT Note Date & Type Note Facility 06-25-2024 Telephone encount er Note Rx for losartan is sent. [facility] 06-25-2024 Miscellaneous Notes Formattin g of this note might be different from the original. Rx for losartan is sent. documented in this encounter [facility] 03-26-2024 Note [facility] Cardiology Clinic Note Chief Complaint: New patient here to establish care. Ref from Dr. Reynolds for abnormal stress test. 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 Stress test was ordered [...] Coronary artery disease, PVD (peripheral vascular disease) ([facility]), and Stroke ([facility]). Surgical History He has a [...] angiography: Left (more content not included)... [facility] 02-25-2024 Note Patient: Taylor briceño Procedure Information Date/Time: 02/25/24 1030 Procedure: Coronary angiography (Left) - andrea Location: [facility] [employer] 3 / [facility] (Cath) Providers: Festus Castillo [...] to blood products. Additional Equipment Requests [facility] 02-17-2024 Note [facility] Cardiology Clinic Note Chief Complaint: New patient here to establish care. Ref from Dr. Reynolds for abnormal stress test. 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 Stress test was ordered [...] catheterization. 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 [facility] 11-05-2022 Evaluation note Encounter Date [...] (ICD-10 - G89.29) Follow up after procedure. [facility] Other 02-09-2023 Evaluation note* Encounter Date Diagnosis [...] cant remember who the surgeon was in [place]. He presents with his today, both the [...] negative findings were considered in medical decision-making. [facility] Other 11-11-2022 Discharge summary Author Sang Bauer [facility] July 20, 2022 6:39pm Note Date/Time July 20, 2022 3:04pm [facility] [address] [place] [address] Discharge Summary Signed Patient: Taylor Mcclellan MR#: [id number] : 1955 Acct:[id number] Age/Sex: 66 / M Adm Date: 2 Loc: Room: [address] [place] [address]: Sang Bauer MD Copies to: [...] tablet 75 mg PO DAILY Discontinued hydrocodone-acetaminophen [Stanley] 5-325 mg tablet 1 tab PO BID PRN (Reason: Pain) Qty: 0 0RF Other Ambulatory Orders: DME Home Medical Equipment (Routine) Timeframe: [id number] Location: Determined by Patient Ordered By: Sang Bauer Follow Up: Lilia Hopper, DIRECTOR SELECTION AND ADMINISTRATION [Nurse Practitioner] - 08/22/22 10:30 am Documented By: Sang Bauer MD 07/20/22 1500 Signed By: <Electronically signed by Sang Bauer MD> 07/20/22 9597 [facility] Work Phone: 1(149) 188-982311-11-2022 Progress note Author Itzel Adams [facility] July 20, 2022 8:06am Note Date/Time July 20, 2022 8:06am [facility] [address] [place] [address] Cardiology Progress Note Signed Patient: Taylor Mcclellan SR MR#: [id number] : 1955 Acct:[id number] Age/Sex: 66 / M Adm Date: 2 Loc: 3T Room: [address] [place] [address] Type: ADM INOo Attending Dr: Sang Bauer [...] it is a single-vessel bypass done in [place] record is not available patient and his cannot remember which hospital he had his surgery at. He does not follow with cardiology Qualifiers: Coronary Disease-Associated Artery/Lesion type: [place] artery [place] vs. transplanted heart: [place] heart Associated angina: without angina Qualified Code(s): I25.10 - Atherosclerotic heart disease of [place] coronary artery without angina pectoris Code(s): I25.10 - Atherosclerotic heart disease of [place] coronary artery without angina pectoris Status: Acute [...] 3. Stress test negative for ischemia or [place]. Patient can be discharged home cardiac chew Documented By: Itzel Adams MD 07/20/22804 Signed By: <Electronically signed by MD Itzel Adams> 07/20/22805 [facility] Work Phone: 1(400) 716-890011-10-2022 Progress note Author Sang Bauer [facility] July 19, 2022 4:57pm Note Date/Time July 19, 2022 4:57pm [facility] [address] [place] [address] Hospitalist Progress Note Signed Patient: Taylor Mcclellan MR#: [id number] : 1955 Acct:[id number] Age/Sex: 66 / M Adm Date: 2 Loc: Room: [address] [place] [address] Type: ADM INOo Attending Dr: Sang Bauer [...] 07/17/23 21:59 Not Given TID.WM.HS [facility] Protocol Lamotrigine 100 mg 07/18/22 12:00 [...] <Electronically signed by Sang Bauer MD> 07/19/221656 [facility] Work Phone: 1(355) 137-318711-10-2022 Progress note Author Itzel Adams [facility] July 19, 2022 8:35am Note Date/Time July 19, 2022 8:35am [facility] [address] [place] [address] Cardiology Progress Note Signed Patient: Taylor Mcclellan MR#: [id number] : 1955 Acct:[id number] Age/Sex: 66 / M Adm Date: 2 Loc: 3T Room: [address] [place] [address] Type: ADM INOo Attending Dr: Sang Bauer [...] it is a single-vessel bypass done in [place] record is not available patient and his cannot remember which hospital he had his surgery at. He does not follow with cardiology Qualifiers: Coronary Disease-Associated Artery/Lesion type: [place] artery [place] vs. transplanted heart: [place] heart Associated angina: without angina Qualified Code(s): I25.10 - Atherosclerotic heart disease of [place] coronary artery without angina pectoris Code(s): I25.10 - Atherosclerotic heart disease of [place] coronary artery without angina pectoris Status: Acute [...] <Electronically signed by MD Itzel Adams> 07/19/22834 [facility] Work Phone: 1(420) 622-411611-09-2022 Progress note Author Sang Bauer [facility] July 18, 2022 3:24pm Note Date/Time July 18, 2022 3 :24pm [facility] [address] [place] [address] Hospitalist Progress Note Signed Patient: Taylor Mcclellan MR#: [id number] : 1955 Acct:[id number] Age/Sex: 66 / M Adm Date: 2 Loc: Room: [address] [place] [address] Type: ADM INOo Attending Dr: Sang Bauer [...] 07/17/23 21:59 Not Given TID.WM.HS [facility] Protocol Lamotrigine 100 mg 07/18/22 12:00 [...] <Electronically signed by Sang Bauer MD> 07/18/22 8979 [facility] Work Phone: 1(152) 852-470411-09-2022 History and physical note Author Sang Bauer [facility] July 18, 2022 3:22pm Note Date/Time July 17, 2022 6 :41pm [facility] [address] [place] [address] Hospitalist H&P Signed Patient: Taylor Mcclellan SR MR#: [id number] : 1955 Acct:[id number] Age/Sex: 66 / M Adm Date: 2 Loc: Room: [address] [place] [address] Type: ADM INOo Attending Dr: Sang Bauer [...] was following his and wants to leave A. Per ED physician patient's was very concerned for the patient as he is not himself and she could not take care of him at home. Reportedly patient was taken to [facility] couple days ago when he was [...] his live in a mobile home in [place]. Meds Medications and Allergies Allergies chlordiazepoxide [From [...] 07/17/22] hydrocodone 5 mg-acetaminophen 325 mg tablet (Stanley) 1 tab PO BID PRN Pain #0 [...] % (Auto) 29.5 % (.) 07/17/22 15:44 Calhoun % (Auto) 5.4 % (.) 07/17/22 15:44 Eos % (Auto) 0.7 % (.) 07/17/22 15:44 Baso % (Auto) 1.0 % (.) 07/17/22 15:44 Neut # (Auto) 4.9 x10E3/uL (1.8-7.7) 07/17/22 15:44 Lymph # (Auto) 2.3 x10E3/uL (1.00-4.8) 07/17/22 15:44 Calhoun # (Auto) 0.4 x10E3/uL (0.0-0.8) 07/17/22 15:44 [...] (CK-2) Rel Index 2.6 % (0.00-2.50) H 11/08/22 15:44 Troponin I High Sens 6 pg/mL [...] <Electronically signed by Sang Bauer MD> 07/18/22 [facility] Work Phone: 1(151) 703-420611-09-2022 Consult note Author Itzel Adams [facility] July 18, 2022 11:46am Note Date/Time July 18, 2022 1 1:43am [facility] [address] [place] [address] Cardiology Consult Note Signed Patient: Taylor Mcclellan MR#: [id number] : 1955 Acct:[id number] Age/Sex: 66 / M Adm Date: 2 Loc: Room: [address] [place] [address] Type: ADM INOo Attending Dr: Sang Bauer MD Copies to: MD Genesis Goetz MD Mourhaf A Traboulssi, MD~ Cardiology HPI History of Present Illness Consult Date: 07/18/22 Reason for Consult: Chest pain HPI: Mr. Mcclellan is a 66 year old male with known history of coronary artery disease and prior bypass surgery done in [place]. No records available. Patient report to have [...] his live in a mobile home in [place]. Meds Medications and Allergies Allergies chlordiazepoxide [From [...] 07/17/22] hydrocodone 5 mg-acetaminophen 325 mg tablet (Stanley) 1 tab PO BID PRN Pain #0 [...] x10E3/uL Lymph # (Auto) 2.3 (1.00-4.8) x10E3/uL Cal[place]oun # (Auto) 0.4 (0.0-0.8) x10E3/uL Eos # [...] @ 100 mls/hr IV ONCE ONE Rx #:[id number] Oral 0 / 0 50 / 50 [...] it is a single-vessel bypass done in [place] record is not available patient and his cannot remember which hospital he had his surgery at. He does not follow with cardiology Qualifiers: Coronary Disease-Associated Artery/Lesion type: [place] artery [place] vs. transplanted heart: [place] heart Associated angina: without angina Qualified Code(s): I25.10 - Atherosclerotic heart disease of [place] coronary artery without angina pectoris Code(s): I25.10 - Atherosclerotic heart disease of [place] coronary artery without angina pectoris (3) Hx [...] signed by MD Itzel Adams> 07/18/22 1146 [facility] Work Phone: 1(325) 763-692711-08-2022 History and physical note Author Sang Bauer [facility] July 18, 2022 3:22pm Note Date/Time July 17, 2022 6 :41pm [facility] [address] [place] [address] Hospitalist H&P Signed Patient: Taylor Mcclellan SR MR#: [id number] : 1955 Acct:[id number] Age/Sex: 66 / M Adm Date: 2 Loc: Room: [address] [place] [address] Type: ADM INOo Attending Dr: Sang Bauer [...] at home. Reportedly patient was taken to [facility] couple days ago when he was [...] his live in a mobile home in [place]. Meds Medications and Allergies Allergies chlordiazepoxide [From [...] 07/17/22] hydrocodone 5 mg-acetaminophen 325 mg tablet (Stanley) 1 tab PO BID PRN Pain #0 [...] % (Auto) 29.5 % (.) 07/17/22 15:44 Calhoun % (Auto) 5.4 % (.) 07/17/22 15:44 Eos % (Auto) 0.7 % (.) 07/17/22 15:44 Baso % (Auto) 1.0 % (.) 07/17/22 15:44 Neut # (Auto) 4.9 x10E3/uL (1.8-7.7) 07/17/22 15:44 Lymph # (Auto) 2.3 x10E3/uL (1.00-4.8) 07/17/22 15:44 Calhoun # (Auto) 0.4 x10E3/uL (0.0-0.8) 07/17/22 15:44 [...] <Electronically signed by Sang Bauer MD> 07/18/22 2452 [facility] Work Phone: 1(471) 106-663101-07-2019 Consult note Author Itzel Adams [facility] July 18, 2022 11:46am Note Date/Time July 18, 2022 1 1:43am [facility] EN[facility] [address] [place] [address] Cardiology Consult Note Signed Patient: Taylor Mcclellan MR#: [id number] : 1955 Acct:[id number] Age/Sex: 66 / M Adm Date: 2 Loc: Room: [address] [place] [address] Type: ADM INOo Attending Dr: Sang Bauer MD Copies to: MD Genesis Goetz MD Mourhaf A Traboulssi, MD~ Cardiology HPI History of Present Illness Consult Date: 07/18/22 Reason for Consult: Chest pain HPI: Mr. Mcclellan is a 66 year old male with known history of coronary artery disease and prior bypass surgery done in [place]. No records available. Patient report to have [...] his live in a mobile home in [place]. Meds Medications and Allergies Allergies chlordiazepoxide [From [...] 07/17/22] hydrocodone 5 mg-acetaminophen 325 mg tablet (Stanley) 1 tab PO BID PRN Pain #0 [...] x10E3/uL Lymph # (Auto) 2.3 (1.00-4.8) x10E3/uL [place] # (Auto) 0.4 (0.0-0.8) x10E3/uL Eos # [...] @ 100 mls/hr IV ONCE ONE Rx #:[id number] Oral 0 / 0 50 / 50 [...] it is a single-vessel bypass done in [place] record is not available patient and his cannot remember which hospital he had his surgery at. He does not follow with cardiology Qualifiers: Coronary Disease-Associated Artery/Lesion type: [place] artery [place] vs. transplanted heart: [place]ree heart Associated angina: without angina Qualified Code(s): I25.10 - Atherosclerotic heart disease of [place] coronary artery without angina pectoris Code(s): I25.10 - Atherosclerotic heart disease of [place] coronary artery without angina pectoris (3) Hx [...] signed by MD Itzel Adams> 07/18/22 1146 [facility] Work Phone: Discharge summary Author Sang Bauer [facility] July 20, 2022 6:39pm Note Date/Time July 20, 2022 3:04pm [facility] EN[facility] [address] [place] [address] Discharge Summary Signed Patient: Taylor Mcclellan SR MR#: [id number] : 1955 Acct:[id number] Age/Sex: 66 / M Adm Date: 2 Loc: Room: [address] [place] [address]: Sang Bauer MD Copies to: [...] tablet 75 mg PO DAILY Discontinued hydrocodone-acetaminophen [Stanley] 5-325 mg tablet 1 tab PO BID PRN (Reason: Pain) Qty: 0 0RF Other Ambulatory Orders: DME Home Medical Equipment (Routine) Timeframe: [id number] Location: Determined by Patient Ordered By: Sang Bauer Follow Up: Lilia Hopper APRN [Nurse Practitioner] - 08/22/22 10:30 am Documented By: Sang Bauer MD 07/20/22 1504 Signed By: <Electronically signed by Sang Bauer MD> 07/20/22 3157 [facility] Work Phone: Evaluation note* Diagnosis Onset Date Resolution Status Chest pain acute Coronary artery disease acut e Generalized weakness acute Hx of CABG acute Diabetes mellitus chronic HTN (hypertension) chronic [facility] Work Phone: Evaluation note* Diagnosis Onset Date Resolution Status Bipolar 1 disorder, depressed, severe acute Chest pain acute Coronary artery disease acut e Generalized weakness acute Hx of CABG acute Chronic back pain chronic Diabetes mellitus chronic HTN (hypertension) chronic [facility] Work Phone: Evaluation noteNo assessment information available [facility] Work Phone: Evaluation noteNo InformationNortUniversity of [facility] Other Evaluation note* Diagnosis Primary hypertension (CMS/HCC)- [...] Surgical History CABG Hospitalization History see above [facility] Other Hospital Discharge instructions Additional Instructions SNF TO MANAGE: PT/OT to eval and treat Monitor VS per protocol--HTN Monitor FSBS Maintain high risk fall precautions Care to be managed by [facility] Work Phone: Progress note Author Sang Bauer [facility] July 18, 2022 3:24pm Note Date/Time July 18, 2022 3 :24pm [facility] EN[facility] [address] [place] [address] Hospitalist Progress Note Signed Patient: Taylor Mcclellan SR MR#: [id number] : 1955 Acct:[id number] Age/Sex: 66 / M Adm Date: 2 Loc: Room: [address] [place] [address] Type: ADM INOo Attending Dr: Sang Bauer [...] 07/17/23 21:59 Not Given TID.WM.HS [facility] Protocol Lamotrigine 100 mg 07/18/22 12:00 [...] [Rexulti] PO 07/18/23 11:14 1XD [facility] Ondansetron HCl 4 mg 07/17/22 18:33 [...] <Electronically signed by Sang Bauer MD> 07/18/22 8448 [facility] Work Phone: Progress note Author Itzel Adams [facility] July 19, 2022 8:35am Note Date/Time July 19, 2022 8:35am [facility] [address] [place] [address] Cardiology Progress Note Signed Patient: Taylor Mcclellan SR MR#: [id number] : 1955 Acct:[id number] Age/Sex: 66 / M Adm Date: 2 Loc: Room: [address] [place] [address] Type: ADM INOo Attending Dr: Sang Bauer [...] it is a single-vessel bypass done in [place] record is not available patient and his cannot remember which hospital he had his surgery at. He does not follow with cardiology Qualifiers: Coronary Disease-Associated Artery/Lesion type: [place] artery [place] vs. transplanted heart: [place] heart Associated angina: without angina Qualified Code(s): I25.10 - Atherosclerotic heart disease of [place] coronary artery without angina pectoris Code(s): I25.10 - Atherosclerotic heart disease of [place] coronary artery without angina pectoris Status: Acute [...] <Electronically signed by MD Itzel Adams> 07/19/2235 [facility] Work Phone: Progress note Author Sang [facility] July 19, 2022 4:57pm Note Date/Time July 19, 2022 4:57pm [facility] [address] [place] [address] Hospitalist Progress Note Signed Patient: Taylor Mcclellan SR MR#: [id number] : 1955 Acct:[id number] Age/Sex: 66 / M Adm Date: 2 Loc: Room: [address] [place] [address] Type: ADM INOo Attending Dr: Sang Bauer [...] 07/17/23 21:59 Not Given TID.WM.HS [facility] Protocol Lamotrigine 100 mg 07/18/22 12:00 [...] <Electronically signed by Sang Bauer MD> 07/19/221656 [facility] Work Phone: Progress note Author Itzel Adams [facility] July 20, 2022 8:06am Note Date/Time July 20, 2022 8:06am [facility] [address] [place] [address] Cardiology Progress Note Signed Patient: Taylor Mcclellan MR#: [id number] : 1955 Acct:[id number] Age/Sex: 66 / M Adm Date: 2 Loc: 3T Room: [address] [place] [address] Type: ADM INOo Attending Dr: Sang Bauer [...] it is a single-vessel bypass done in [place] record is not available patient and his cannot remember which hospital he had his surgery at. He does not follow with cardiology Qualifiers: Coronary Disease-Associated Artery/Lesion type: [place] artery [place] vs. transplanted heart: [place] heart Associated angina: without angina Qualified Code(s): I25.10 - Atherosclerotic heart disease of [place] coronary artery without angina pectoris Code(s): I25.10 - Atherosclerotic heart disease of [place] coronary artery without angina pectoris Status: Acute [...] 3. Stress test negative for ischemia or LA. Patient can be discharged home cardiac chew Documented By: Itzel Adams MD 07/20/22804 Signed By: <Electronically signed by MD Itzel Adams> 07/20/22805 [facility] Work Phone: Summary Purpose Family History No Family History Records Found Relationship Condition Age at Onset Recorded Date/[place] Not Specified Cardiac disease Unknown Epilepsy Unknown brother Epilepsy Unknown Relationship Condition Age at Onset Recorded Date/[place] mother Cardiac disease Unknown Epilepsy Unknown brother Epilepsy Unknown father Unknown mother Unknown Advance Directives No Advanced Directives Records [...] (hypertension) Chief Complaint M96.1 M47.817 M46.1 G89.29 Chief Complaint Admit Date Unknown September 09, 2024 12 :10am Additional Source Comments (unrecognized sect ion and content) No Status Records FoundNo Status Records FoundNo Status Records FoundNo Status Records FoundNo Status Records FoundNo Status Records FoundNo Status Records FoundNo Status Records Found INFORMATION SOURCE (unrecogn ized section and content) DATE CREATED AUTHOR 10/15/2019 [facility] DATE CREATED AUTHOR AUTHOR'S ORGANIZ ATION 11/29/2021 Laureano Marcos [facility] DATE CREATED AUTHOR AUTHOR'S ORGANIZ ATION 01/21/2023 [facility] DATE CREATED AUTHOR AUTHOR'S ORGANIZ ATION 01/23/2023 [facility] DATE CREATED AUTHOR AUTHOR'S ORGANIZ ATION 11/11/2023 [facility] DATE CREATED AUTHOR AUTHOR'S ORGANIZ ATION 03/30/2024 [facility] DATE CREATED AUTHOR AUTHOR'S ORGANIZ ATION 05/06/2024 [facility] DATE CREATED AUTHOR AUTHOR'S ORGANIZ ATION 09/19/2024 [facility] Care Teams (unrecognized sec tion and content) Team Status: Active Member Role Status Sabrina Reynolds MD Primary Care Provider Active Segundo Huston MD Emergency Provider Active Sang Bauer MD Admit Provider, Attending Provider A ctmelissa Mckeon RN Other Provider Active Lawrence Lee DO Other Provider Active Kaden Summers MD Other Provider Active Edinson Bustamante MD Other Provider Active Itzel Adams MD Other Provider Active Ramos Fraga MD Other Provider Active Lilia Orourke APRN Other Provider Active Cinthia Rae MD Other Provider Active Ramón Ayala MD Other Provider Active Flavio Ramirez MD Other Provider Active Pily Winslow [facility] Other Provider Active Adelaide Leonardo [...] Active Benson Lane MD Attending Provider Active 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 Relationship Specialty Start Date End Date Bro Da Silva MD PCP - General Family Medicine 12/26/16 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 Relationship Specialty Start Date End Date Ebenezer Hopkins MD [address] [facility] [place] [address] PCP - General Psychiatry 04/26/23 Team Status: Inactive Member Role Status Dates Genesis Reynolds MD Attending Provider Active Sta rt: September 09, 2024 End: September 09, 2024 Goals (unrecognized section and content) Goals may be documented in a n alternate sectionNo InformationNo InformationNo InformationNo InformationNo InformationNo InformationGoals may be documented in an alternate section REASON FOR VISIT (unrecogniz ed section and [...] BE BASED ON THE PRIMARY CLINICAL RECORDS. [employer] provides no warranty or guarantee of the accuracy or completeness of information in this document.
[2024-09-27 14:27] LABS: Hematocrit 41.6 % (42.0-54.0); Hemoglobin 13.7 g/dL (14.0-18.0); Mean Corpuscular HGB Conc 32.9 g/dL (29.9-35.2); Mean Corpuscular Hemoglobin 30.6 pg (25.9-34.0); Mean Corpuscular Volume 93.1 fL (80.0-94.0); Mean Platelet Volume 12.3 fL (9.5-13.5); Platelet Count 207 10^3/uL (150-450); Red Blood Count 4.47 10^6/uL (4.70-6.10); Red Cell Distribution Width 13.6 % (11.0-15.0); White Blood Count 5.8 10^3/uL (4.0-11.0)
[2024-09-27 14:40] LABS: Alanine Aminotransferase 24 U/L (16-63); Albumin Globulin Ratio 0.9; Albumin Level 3.1 g/dL (3.4-5.0); Alkaline Phosphatase 43 U/L (46-116); Anion Gap 16.2; Aspartate Amino Transferase 21 U/L (15-37); BUN Creatinine Ratio 16.4; Bilirubin Total 0.6 mg/dL (0.2-1.0); Calcium 8.7 mg/dL (8.5-10.1); Carbon Dioxide 25.9 mmol/L (21.0-32.0); Chloride 109 mmol/L (98-107); Estimated GFR (African America >60 (>=60 mL/min/1.73m^2); Estimated GFR (Non-African Ame 50 (>=60 mL/min/1.73m^2); Globulin 3.5 g/dL; Glucose 189 mg/dL (74-106); Potassium 4.1 mmol/L (3.5-5.1); Sodium 147 mmol/L (136-145); Total Protein 6.6 g/dL (6.4-8.2)
[2024-09-27 15:01] LABS: Band Neutrophils Absolute 1.9 10^3/uL (0.0-0.3); Lymphocytes Absolute Manual 0.92 10^3/uL (1.20-3.80); Monocytes Absolute Manual 0.52 10^3/uL (0.30-0.80); Segmented Neut Absolute Manual 2.49 10^3/uL (1.4-6.5)
[2024-09-27 15:02] LABS: Anisocytosis 1+; Ovalocytes 1+
== END 2024-09-27 14:07 | disposition home or self-care (01) ==
LOC: LAB 14:06
PROVIDERS: PCP Family Medicine; Visit Provider Family Medicine
DX: R41.82 Altered mental status, unspecified (principal)
CPT/HCPCS: 36415; 80053; 81003; 85007; 85027

== ENCOUNTER 2024-09-28 20:28 | Inpatient (IN) | payer MEDICARE, BC, SELFPAY ==
[2024-09-28] VITALS (25 sets, daily range): BP systolic 95–145; BP diastolic 56–126; PULSE 98–118; TEMP 37.1; O2SAT 81–99; BMI 29.8
--- NOTE | 2024-09-28 20:33 | XR_ITS ---
The [address] [address] Patient Name: TAYLOR MCCLELLAN MRN: [id number] date: 1955 Sex: M Assigned Patient Location: ER Current Patient Location: LAB Accession/Order Number: [id number] Exam Date: 09/28/2024 20:41 Report Date: 09/28/2024 22:23 At the request of: MELVA JASON Procedure: XR chest 1V EXAMINATION: XR chest 1V HISTORY: sob COMPARISON: XR chest 05/21/2024 FINDINGS: LUNGS: Unexpanded lungs with moderate opacities within mid and lower lung regions. VASCULATURE: No increased pulmonary vasculature. PLEURA: No pneumothorax, effusion, or pleural thickening. CARDIAC: No cardiomegaly or cardiac silhouette abnormality. MEDIASTINUM: Prior sternotomy. No abnormal widening. BONES: No fracture or visible bone lesion. OTHER: Negative. XR/XR chest 1V IMPRESSION: 1. Low lung volume examination with moderate bibasilar infiltrates; pulmonary edema versus infectious etiology. Electronically authenticated by: LIAM SCHUMACHER Date: 09/28/2024 22:23
--- NOTE | 2024-09-28 20:33 | ECG_ITS ---
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
--- NOTE | 2024-09-28 20:33 | CT_ITS ---
The [address] [address] Patient Name: TAYLOR MCCLELLAN MRN: [id number] date: 1955 Sex: M Assigned Patient Location: ER Current Patient Location: Accession/Order Number: [id number] Exam Date: 09/28/2024 20:41 Report Date: 09/28/2024 22:26 At the request of: MELVA JASON Procedure: CT cervical spine wo con EXAM: CT cervical spine wo con HISTORY: unwitnessed fall COMPARISON: None. TECHNIQUE: Axial images of the cervical spine were obtained without contrast enhancement. Sagittal and coronal reformations were provided. Dose reduction techniques were achieved by using automated exposure control and/or adjustment of mA and/or kV according to patient size and/or use of iterative reconstruction technique COMMENT: The lack of intradural contrast and streak artifact from bone about the vertebral column limit evaluation for disc protrusion, bulge and the spinal canal in general. FINDINGS: ALIGNMENT/BONY STRUCTURES: No CT evidence of an acute fracture, subluxation or loss of vertebral body height. Loss of disc space is seen at C3-C4 and C4-C5. There are multilevel endplate osteophytes. No malalignment at the craniocervical junction. CORD: The cord is poorly seen and not well evaluated. OTHER SPINAL FINDINGS: None. DISC SPACES: While assessment is again suboptimal on this noncontrast CT, there appear to be areas of canal narrowing due to disc bulging and associated endplate osteophyte. Uncovertebral spurring and areas of foraminal stenosis are also noted. NONSPINAL FINDINGS: A carotid stent is seen on the right. CT/CT cervical spine wo con IMPRESSION: Degenerative change of the cervical vertebral column without CT evidence of an acute fracture. Electronically authenticated by: NIKUNJ LESLIE Date: 09/28/2024 22:26
--- NOTE | 2024-09-28 20:33 | CT_ITS ---
The [address] [address] Patient Name: TAYLOR MCCLELLAN MRN: [id number] date: 1955 Sex: M Assigned Patient Location: ER Current Patient Location: ER Accession/Order Number: [id number] Exam Date: 09/28/2024 20:41 Report Date: 09/28/2024 21:08 At the request of: MELVA JASON Procedure: CT head/brain wo con EXAM: CT head/brain wo con HISTORY: trauma COMPARISON: CT brain 09/09/2024. TECHNIQUE: Axial CT scans through the head were obtained without IV contrast administration. Dose reduction techniques were achieved by using: automated exposure control and/or adjustment of mA and /or kV according to patient size and/or use of iterative reconstruction technique. FINDINGS: There is no evidence of acute intracranial hemorrhage or abnormal extra-axial fluid collection. No mass effect or midline shift is seen. There is no evidence of large acute territorial infarction. There is no hydrocephalus. There is mild generalized cerebral atrophy. There are remote lacunar infarcts in the left basal ganglia, left internal capsule, right thalamus and right centrum semiovale. To the limit of CT, the posterior fossa appears unremarkable. There are atherosclerotic calcifications of cavernous segments of bilateral internal carotid arteries. No definite acute fracture is identified. There is a stable small scalp nodule. The visualized orbits show no abnormality. The visualized paranasal sinuses show no air-fluid level. Mastoid air cells are clear. CT/CT head/brain wo con IMPRESSION: No CT evidence of acute intracranial abnormality. Stable chronic findings, as described. Electronically authenticated by: ANNABEL ALDRIDGEU Date: 09/28/2024 21:08
--- OUTSIDE RECORDS SUMMARY | 2024-09-28 20:35 | XMS_ITS | CCD ---
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 Name Role Phone Bro Sanford Primary Care Physician Unavailab Lior Dow Attending Physician Unavailable MD Genesis Reynolds Primary Care Provider [phone] MD Segundo Huston Emergency Provider MD Jodie Bauerop Admit Provider MD Lizette Sang Attending Provider [phone] LEXIE Mckeon Other Provider Unavailable DO Lawrence Lee Other Provider MD Kaden Summers Other Provider MD Edinson Bustamante Other Provider MD Itzel Adams Other Provider MD Ramos Fraga Other Provider LILA Hopper Other Provider MD Cinthia Rae Other Provider MD Ramón Ayala Other Provider MD Flavio Ramirez Other Provider Goldy [facility] Pily Espinal Other Provider [phone] MD Adelaide Leonardo Other Provider MD Itzel Adams Referring Provider MD Genesis Reynolds Primary Care Provider [phone] Attending Provider [address] Unavailable DR ELIOT VILLANUEVALAS Admitting [...] Primary Care Unavailable HOJung ., DR HURTADO Consulting Unavailable [...] WERNER Admitting Unavailable Itzel Adams Attending Unavailable Traboulcurt, Mourhaf Attending Unavailable Trabbravo, Mourhaf Attending Unavailable Trabbravo, Mourhaf Attending Unavailable Sharad, MsElizabeth Moore Attending Maria Teresa Sanford MD, Bro Barry Primary Care Provider EBENEZER HOPKINS Referring Unavailable CLARIBEL, BRO REGANONY Primary Care Unavailabl e SUSAN URIOSTEGUI Referring Unavailable NADERER, BRO BARRY Primary Care Unavailabl e NADERER, BRO YAMILKA Primary Care Unavailabl e ANTHONY GREENE Attending [...] Care Provider UnavailGenesis Horne MD Attending Provider [phone] Genesis Reynolds Attending Unavailable Hoy, Genesis M Admitting Unavailable Allergies Allergy Classification Reported Allergen(s) Allergy Type Date of Onset Reaction(s) Facility (7 sources) Amitriptyline; Translations: [Amitriptyline] Drug Allergy 05-18-20 14 Unknown Reaction [facility] (12 sources) atorvastatin; Translations: [atorvastatin] Drug Allergy 01-24-20 19 Unknown Reaction, Unknown [facility] (6 sources) chlordiazePOXIDE Drug Allergy 01-24-20 19 Unknown Reaction [facility] (6 sources) clidinium Drug Allergy 01-24-20 19 Unknown Reaction [facility] (16 sources) fentaNYL; Translations: [Fentanyl] Drug Allergy 12-27-19 17 Unknown Reaction, Unknown [facility] (9 sources) venlafaxine; Translations: [VENLAFAXINE] Drug Allergy 05-13-20 14 Other (See Comments) [facility] (4 sources) Citalopram; Translations: [Citalopram] Drug Allergy 01-11-20 21 Unknown Reaction [facility] (4 sources) Simvastatin Drug Allergy 07-17-20 22 Unknown Reaction [facility] (7 sources) Succinylcholine; Translations: [Succinylcholine] Drug Allergy 09-08-20 04 Unknown Reaction [facility] (7 sources) Amitriptyline; Translations: [Elavil] Drug Allergy 04-20-20 14 Unknown [facility] (7 sources) chlordiazePOXIDE / clidinium Drug Allergy 11-05-19 23 Unknown [facility] (7 sources) venlafaxine; Translations: [Effexor] Drug Allergy 04-06-20 14 Unknown [facility] (1 source) buPROPion Drug Allergy [facility] (1 source) Citalopram Drug Allergy 12-31-19 20 [facility] (1 source) mirabegron Drug Allergy [facility] (1 source) Simvastatin Drug Allergy [facility] (1 source) tiZANidine Drug Allergy [facility] (1 source) Amitriptyline Drug Allergy 05-18-20 14 [facility] (1 source) metFORMIN; Translations: [METFORMIN] [...] 11, 2018 11:00pm December 23, 2018 4:29pm [id number] 200 actuat albuterol 0.09 mg/actuat metered dose [...] 10:29am losartan potassium 50 mg oral tablet (2 sources) Angiotensin 2 Receptor Barbara Start: 06-25-2024 take [...] PO Q8H as needed for pain 8 July 20, 2022 12:00am UNABLE TO FIND [...] daily as needed for pain Hydrocodone-Aceta minophen (Bascom) 5-325 mg tablet Discontinued 1 TAB PO [...] MG PO Four times daily 44 January 16 2018 11:00pm February 08, 2018 9:13pm Start: [...] Coronary arteriosclerosis; Translations: [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] Onset: 11-25-2014 [...] 12-26-2016 Chronic Other aftercare (1 source) Other retirement (current) drug therapy; Translations: [OTH [facility]FP CURRENT DRUG THERAPY] Onset: 01-21-2023 Episodic Other aftercare (1 source) 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) use of antithrombotics/antip latelets; Translations: [MAXILLOFACIAL SURGEON 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/ANTIPLAT LETS] Onset: 12-20-2022 Episodic Other circulatory [...] Onset: 08-08-2022 Episodic Other aftercare (1 source) 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) use of aspirin; Translations: [MCFP CURRENT USE OF ASPIRIN] Onset: 07-20-2022 Episodic [...] Test Name Value Interpretation Reference Range Facility ALL CBC WITH AUTO DIFFon Erythrocyte distribution width (RBC) [Ratio] 13.6 % 11.0 - 15.0 % [facility] Hematocrit (Bld) [Volume fraction] 41.6 % Low 42.0 - 54.0 % [facility] Hemoglobin (Bld) [Mass/Vol] 13.7 g/dL Low 14.0 - 18.0 g/dL [facility] Interpretation and review of laboratory results Abnormal [facility] MCH (RBC) [Entitic mass] 30.6 pg 25.9 - 34.0 pg [facility] MCHC (RBC) [Mass/Vol] 32.9 g/dL 29.9 - 35.2 g/dL [facility] MCV (RBC) [Entitic vol] 93.1 fL 80.0 - 94.0 fL [facility] Platelet mean volume (Bld) [Entitic vol] 12.3 fL 9.5 - 13.5 fL [facility] TBH PLT 207 [facility] TB RBC 4.47 Low [facility] TB WBC 5.8 [facility] Blood Cultureon 09-09-2024 Bacteria identified [facility] (Bld) Gram Stain Gram Positive Cocci in Clusters ORGANISM: Staphylococcus epidermidis (O:STAEPI) Aerobic CASSIE Charge (PCMIC38) SUSCEPTIBILITY ORGANISM: O:STAEPI ANTIBIOTIC INTERPRETATION CASSIE Azithromycin R >4 Ciprofloxacin R >2 Daptomycin S <0.5 Levofloxacin R >4 Linezolid S <1 Oxacillin R >2 Penicillin R >2 Tetracycline S <4 Trimethoprim/Sulfamethoxaz ole S Vancomycin S 1 S = SUSCEPTIBLE I [...] RESISTANT TO ALL B-LACTAM DRUGS. PERFORMED BY: [place] [address] PATHOLOGIST MACHINE OPERATOR ASSISTANT MARC VELEZ M.D. [facility] Comment on above: Performed By: #### C UBLD #### [address] Office Visiton 03-26-2024 Follow-up visit [id number] Chacho Mcclellan ph J 1955 [facility] 03/[facility]20[facility] Family History Problem Relation Age of Onset No Known Problems Mother No Known Problems Father Family Status - Relation Status Age at Mother Father Level of Service:75653 CT OFFICE/OUTPATIENT ESTABLISHED MOD MDM 30 MIN [facility] HPon 02-25-2024 H&P reviewed. The caroline hayes was examined and there are no changes to the H&P. [facility] NURSNOTEon 02-25-2024 [place] RN educated pt on d/ c instructions. RN encouraged pt to voice any questions or concerns. Pt verbalizes no questions or concerns at this time. Pt was wheeled off of unit with all of belongings. [facility] Orders Onlyon 02-20-2024 Orders Only [id number] Chacho Mcclellan ph J 1955 M Date Provider Department Center 02/20/2024 ReggieGoMeganBETHANIEZANDRA [facility] AR HeartVAS Family History Problem Relation Age of Onset No Known Problems Mother No Known Problems Father Family Status - Relation Status Age at Mother Father Normal [facility] HPon 02-17-2024 [facility] Note Chief Complaint: New patient here to establish care. Ref from Dr. Reynolds for abnormal stress test. 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 Stress test was ordered for [...] catheterization. I [place] not be [place] for the next 3 to 4 weeks; [...] therapy, moder (more content not included)... Normal [facility] Office Visiton 02-17-2024 Follow-up visit [id number] Chacho Mcclellan ph J 1955 M Date Provider Department Center 02/17/2024 Getachew-MITZY TOVAR NASRIN Mccarty Family History Problem Relation Age of Onset No Known Problems Mother No Known Problems Father Family Status - Relation Status Age at Mother Father Level of Service:76269 CT OFFICE/OUTPATIENT NEW HIGH MDM 60 MINUTES Normal [facility] Orders Onlyon 02-17-2024 Orders Only [id number] Chacho Mcclellan ph J 1955 M Provider Department Center 02/17/2024 DIRK JARA CARD [facility] Family History Problem Relation Age of Onset No Known Problems Mother No Known Problems Father Family Status - Relation Status Age at Mother Father Normal [facility] Urinalysis w/ Microon 2023 Bacteria TRACE Abnormal NONE [facility] Comment on above: Performed By: #### U AMIC #### [facility] [address] [place] [address] [place] [address] Stars Analytical Lead: Sarai Howell MD Bilirubin, SemiQt,Ur Negative Normal NEG [facility] Comment on above: Performed By: #### U AMIC #### [facility] [address] [place] [address] [place] [address] Stars Analytical Lead: Sarai Howell MD Blood, Urine Negative Normal NEG [facility] Comment on above: Performed By: #### U AMIC #### [facility] [address] [place] [address] [place] [address] Stars Analytical Lead: Sarai Howell MD Clarity (U) Clear Normal CLEAR [facility] Comment on above: Performed By: #### U AMIC #### [facility] [address] [place] [address] [place] [address] Stars Analytical Lead: Sarai Howell MD Color (U) Yellow Normal YEL [facility] Comment on above: Performed By: #### U AMIC #### [facility] [address] [place], [place] [phone] Stars Analytical Lead: Sarai Howell MD Epithelial cells LM Ql (Urine sed) 0 TO 2 Normal 0-5 [facility] Comment on above: Performed By: #### U AMIC #### [facility] [address] [place], [place] [phone] Stars Analytical Lead: Sarai Howell MD Glucose Ql (U) Negative Normal NEG [facility] Comment on above: Performed By: #### U AMIC #### [facility] [address] [place] [address] Dr. [place], [place] [phone] Stars Analytical Lead: Sarai Howell MD Ketones Ql (U) Negative Normal NEG [facility] Comment on above: Performed By: #### U AMIC #### [facility] [address] [place] [address] Dr. [place], [place] [phone] Stars Analytical Lead: Sarai Howell MD Leukocyte esterase Test strip Ql (U) Negative Normal NEG [facility] Comment on above: Performed By: #### U AMIC #### [facility] [address] [place] [address] [place]. [place], [place] [id number] Stars Analytical Lead: Sarai Howell MD Mucus Strands TRACE Abnormal NONE [facility] Comment on above: Performed By: #### U AMIC #### [facility] [address] [place] [address] Dr. [place], [place] [phone] Stars Analytical Lead: Sarai Howell MD Nitrite,Ur Negative Normal NEG [facility] Comment on above: Performed By: #### U AMIC #### [facility] [address] [place], [place] [phone] Stars Analytical Lead: Sarai Howell MD PH,Ur 7.0 Normal 5.0-9.0 [facility] Comment on above: Performed By: #### U AMIC #### [facility] [address] [place], [place] [phone] Stars Analytical Lead: Sarai Howell MD Protein Ql (U) Negative Normal NEG [facility] Comment on above: Performed By: #### U AMIC #### [facility] [address] [place] [address] Dr. [place], [place] [phone] Stars Analytical Lead: Sarai Howell MD Spec. [place],Ur 1.015 Normal 1.010-1.02 0 [facility] Comment on above: Performed By: #### U AMIC #### [address] [place], [place] [id number] Stars Analytical Lead: Sarai Howell MD Urine RBC's 0 TO 2 Normal 0-2 [facility] Comment on above: Performed By: #### U AMIC #### [address] [place], [facility] Stars Analytical Lead: Sarai Howell MD Urine WBC's 2 TO 5 Normal 0-5 [facility] Comment on above: Performed By: #### U AMIC #### [address] [place], [place] [phone] Stars Analytical Lead: Sarai Howell MD Urobilinogen,Ur Normal Normal 0.0-1.0 [facility] Comment on above: Performed By: #### U AMIC #### [facility] [address] [place] [address] Dr. [place], [facility] Stars Analytical Lead: Sarai Howell MD Urinalysis with Microscopico n 11-10-2023 Bacteria LM Ql (Urine sed) TRACE Abnormal None [facility] Bilirubin Ql (U) Negative NEGATIVE [facility] Clarity (U) Clear Clear [facility] Color (U) Yellow Yellow [facility] Epithelial cells LM.HPF (Urine sed) [#/Area] 0 TO 2 [facility] Glucose Test strip (U) [Mass/Vol] Negative NEGATIVE mg/dL [facility] Hemoglobin Auto test strip Ql (U) Negative NEGATIVE [facility] Interpretation and review of laboratory results Abnormal [facility] Ketones (U) [Mass/Vol] Negative NEGAT MELISSA mg/dL [facility] Leukocyte esterase Test strip Ql (U) Negative NEGATIVE [facility] Mucus Ql (Urine sed) TRACE Abnormal None [facility] Nitrite Ql (U) Negative NEGATIVE [facility] pH (U) 7.0 [pH] 5.0 - 9.0 [facility] Protein (U) [Mass/Vol] Negative NEGAT MELISSA mg/dL [facility] RBC LM.HPF (Urine sed) [#/Area] 0 TO 2 [facility] Specific gravity (U) [Rel density] 1.015 1.010 - 1.020 [facility] Urobilinogen Qn (U) Normal 0.0 - 1. 0 EU/dL [facility] WBC LM.HPF (Urine sed) [#/Area] 2 TO 5 [facility] Cult, Bloodon 04-30-2023 Cult, Blood Specimen Description .BLOOD Special Requests lhand, 9ml, 2 bottles Culture NO GROWTH 5 DAYS Report Status FINAL 04/30/2023 [facility] Comment on above: Performed By: #### B CUL2 #### [facility] [address] [place] [address] Stars Analytical Lead: Sarai Howell MD Cult,[facility] 04-30-2023 Cult,Blood Specimen Description .BLOOD Special Requests LAC, 20ML Culture NO GROWTH 5 DAYS Report Status FINAL 04/30/2023 [facility] Comment on above: Performed By: #### B C #### [facility] [address] [place] [address] Stars Analytical Lead: Sarai Howell MD Lipid Profileon 04-26-2023 Cholesterol [Mass/Vol] 171 mg/dL Normal <200 [facility] Comment on above: Result Comment: Cholesterol Guidelines: <200 Desirable 200-240 Borderline >240 Undesirable Performed By: #### L IPR #### [address] [address] Stars Analytical Lead: Spencer Tapia MD Cholesterol in HDL [Mass/Vol] 30 mg/dL Low >40 [facility] Comment on above: Result Comment: HDL Guidelines: <40 Undesirable 40-59 Borderline >59 Desirable Performed By: #### L IPR #### [address] [address] Stars Analytical Lead: Spencer Tapia MD Cholesterol in LDL [Mass/Vol] 112 mg/dL Normal 0-130 [facility] Comment on above: Result Comment: LDL Guidelines: <100 Desirable 100-129 Near to/above Desirable 130-159 Borderline >159 Undesirable Direct (measured) LDL and calculated LDL are not interchangeable tests. Performed By: #### L IPR #### [address] [address] Stars Analytical Lead: Spencer Tapia MD Cholesterol.total/Chol esterol in HDL [Mass ratio] 5.7 {ratio} High <5 [facility] Comment on above: Performed By: #### L IPR #### [address] [address] Stars Analytical Lead: Spencer Tapia MD Triglyceride [Mass/Vol] 143 mg/dL Normal <150 [facility] Comment on above: Result Comment: Triglyceride Guidelines: <150 Desirable 150-199 Borderline 200-499 High >499 Very high Based on AHA Guidelines for fasting triglyceride, June 2012. Performed By: #### L IPR #### [address] [address] Stars Analytical Lead: Spencer Tapia MD Basic Metabolic Profon 04-25 Anion gap [Moles/Vol] 13 mmol/L Normal - [facility] Comment on above: Performed By: #### T DNAAYI, CDP, BMP #### [facility] [address] [place] [address] Stars Analytical Lead: Sarai Howell MD BUN/CRE Ratio 14 Normal 9-20 [facility] Comment on above: Performed By: #### ANJALI PRADHAN, BMP #### [facility] [address] [place] [address] Stars Analytical Lead: Sarai Howell MD Calcium [Mass/Vol] 9.3 mg/dL Normal 8.6-10.4 [facility] Comment on above: Performed By: #### ANJALI PRADHAN, BMP #### [facility] [address] [place] [address] Stars Analytical Lead: Sarai Howell MD Chloride [Moles/Vol] 101 mmol/L Normal 98-107 [facility] Comment on above: Performed By: #### ANJALI PRADHAN, BMP #### [facility] [address] [place] [address] [place] [address] Stars Analytical Lead: Sarai Howell MD CO2 [Moles/Vol] 25 mmol/L Normal 20-31 [facility] Comment on above: Performed By: #### ANJALI PRADHAN, BMP #### [address] [place] [address] Stars Analytical Lead: Sarai Howell MD Creatinine [Mass/Vol] 1.3 mg/dL High 0.7-1.2 [facility] Comment on above: Performed By: #### ANJALI PRADHAN, BMP #### [facility] [address] [place] [address] Stars Analytical Lead: Sarai Howell MD GFR/1.73 sq M.predicted among non-blacks MDRD (S/P/Bld) [Vol rate/Area] mL/min/{1.73_m2} Normal >60 [facility] Comment on above: Result Comment: These [...] Performed By: #### ANJALI PRADHAN, BMP #### [facility] [address] [place] [address] [place], [place] [phone] Stars Analytical Lead: Sarai Howell MD Glucose [Mass/Vol] 87 mg/dL Normal 70-99 [facility] Comment on above: Performed By: #### ANJALI PRADHAN, BMP #### [address] [place] [address] Stars Analytical Lead: Sarai Howell MD Potassium [Moles/Vol] 3.9 mmol/L Normal 3.7-5.3 [facility] Comment on above: Performed By: #### ANJALI PRADHAN, BMP #### [address] [place] [address] Stars Analytical Lead: Sarai Howell MD Sodium [Moles/Vol] 139 mmol/L Normal 135-144 [facility] Comment on above: Performed By: #### ANJALI PRADHAN, BMP #### [address] [place], [place] [id number] Stars Analytical Lead: Sarai Howell MD Urea nitrogen [Mass/Vol] 18 mg/dL Normal 8-23 [facility] Comment on above: Performed By: #### ANJALI PRADHAN, BMP #### [facility] [address] [place] [address] [place]. [place], [place] [phone] Stars Analytical Lead: Sarai Howell MD CBC with Diffon 04-25-2023 Abs. Basophil 0.04 k/uL Normal 0.00-0.20 [facility] Comment on above: Performed By: #### ANJALI PRADHAN, BMP #### [facility] [address] [place] [address] [place]. [place], [place] [phone] Stars Analytical Lead: Sarai Howell MD Abs.Imm.Granulocyte 0.04 k/uL Normal 0.00-0.30 [facility] Comment on above: Performed By: #### ANJALI PRADHAN, BMP #### [address] [place] [address] Stars Analytical Lead: Sarai Howell MD Abs.Neutrophil (Seg) 5.64 k/uL Normal 1.50-8.10 [facility] Comment on above: Performed By: #### ANJALI PRADHAN, BMP #### [address] [place] [address] Stars Analytical Lead: Sarai Howell MD Basophils/100 WBC (Bld) 1 % Normal 0-2 [facility] Comment on above: Performed By: #### ANJALI PRADHAN, BMP #### [address] [place] [address] Stars Analytical Lead: Sarai Howell MD Eosinophils (Bld) [#/Vol] 0.09 10*3/uL Normal 0.00-0.44 [facility] Comment on above: Performed By: #### ANJALI PRADHAN, BMP #### [address] [place] [phone] Stars Analytical Lead: Sarai Howell MD Eosinophils/100 WBC (Bld) 1 % Normal 1-4 [facility] Comment on above: Performed By: #### ANJALI PRADHAN, BMP #### [address] [place], [facility] Stars Analytical Lead: Sarai Howell MD Erythrocyte distribution width (RBC) [Ratio] 15.4 % High 11.8-14.4 [facility] Comment on above: Performed By: #### ANJALI PRADHAN, BMP #### [address] [place] [phone] Stars Analytical Lead: Saria Howell MD Hematocrit (Bld) [Volume fraction] 40.6 % Low 40.7-50.3 [facility] Comment on above: Performed By: #### ANJALI PRADHAN, BMP #### [facility] [address] [place], [facility] Stars Analytical Lead: Sarai Howell MD Hemoglobin (Bld) [Mass/Vol] 13.1 g/dL Normal 13.0-17.0 [facility] Comment on above: Performed By: #### ANJALI PRADHAN, BMP #### [facility] [address] [place], [place] [address] Stars Analytical Lead: Sarai Howell MD Immature granulocytes/100 WBC (Bld) 1 % High 0 [facility] Comment on above: Performed By: #### ANJALI PRADHAN, BMP #### [address] [place], [facility] Stars Analytical Lead: Sarai Howell MD Lymphocytes (Bld) [#/Vol] 1.86 10*3/uL Normal 1.10-3.70 [facility] Comment on above: Performed By: #### ANJALI PRADHAN, BMP #### [address] [place], [place] [address] Stars Analytical Lead: Sarai Howell MD Lymphocytes/100 WBC (Bld) 22 % Low 24-43 [facility] Comment on above: Performed By: #### ANJALI PRADHAN, BMP #### [facility] [address] [place] [address] Dr. [place], [place] [address] Stars Analytical Lead: Sarai Howell MD MCH (RBC) [Entitic mass] 29.0 pg Normal 25.2-33.5 [facility] Comment on above: Performed By: #### ANJALI PRADHAN, BMP #### [facility] [address] [place], [facility] Stars Analytical Lead: Sarai Howell MD MCHC (RBC) [Mass/Vol] 32.3 g/dL Normal 28.4-34.8 [facility] Comment on above: Performed By: #### T ANJALI AYALA, BMP #### [facility] [address] [place], [place] [phone] Stars Analytical Lead: Sarai Howell MD MCV (RBC) [Entitic vol] 89.8 fL Normal 82.6-102.9 [facility] Comment on above: Performed By: #### T ANJALI AYALA, BMP #### [facility] [address] [place], [facility] Stars Analytical Lead: Sarai Howell MD Monocytes (Bld) [#/Vol] 0.83 10*3/uL Normal 0.10-1.20 [facility] Comment on above: Performed By: #### ANJALI PRADHAN, BMP #### [facility] [address] [place], [facility] Stars Analytical Lead: Sarai Howell MD Monocytes/100 WBC (Bld) 10 % Normal 3-12 [facility] Comment on above: Performed By: #### ANJALI PRADHAN, BMP #### [address] [place], [facility] Stars Analytical Lead: Sarai Howell MD Neutrophil (Seg) 65 % Normal 36-65 [facility] Comment on above: Performed By: #### ANJALI PRADHAN, BMP #### [facility] [address] [address] [place], [place] [address] Stars Analytical Lead: Sarai Howell MD NRBC Automated 0.0 per 100 WBC Normal 0.0 [facility] Comment on above: Performed By: #### ANJALI PRADHAN, BMP #### [facility] [address] [place], [facility] Stars Analytical Lead: Sarai Howell MD Platelet mean volume (Bld) [Entitic vol] 11.9 fL Normal 8.1-13.5 [facility] Comment on above: Performed By: #### ANJALI PRADHAN, BMP #### [facility] [address] [place], [place] [id number] Stars Analytical Lead: Sarai Howell MD Platelets (Bld) [#/Vol] 254 10*3/uL Normal 138-453 [facility] Comment on above: Performed By: #### T ANJALI AYALA, BMP #### [facility] [address] [place] [address] Stars Analytical Lead: Sarai Howell MD RBC (Bld) [#/Vol] 4.52 10*6/uL Normal 4.21-5.77 [facility] Comment on above: Performed By: #### T ANJALI AYALA, BMP #### [address] [place], [place] [id number] Stars Analytical Lead: Sarai Howell MD WBC (Bld) [#/Vol] 8.5 10*3/uL Normal 3.5-11.3 [facility] Comment on above: Performed By: #### T ANJALI AYALA, BMP #### [address] [place], [facility] Stars Analytical Lead: Sarai Howell MD CT HEAD WO CONTRASTon [...] Babs Mae MD 04/25/23 Final result Normal [facility] Flu A/B Ag Detectionon 04-25 Flu A Ag Detection Negative Normal NEG [facility] Comment on above: Result Comment: for Influenza A Antigen Performed By: #### F LUABA #### [address] [place] [address] Stars Analytical Lead: Sarai Howell MD Flu B Ag Detection Negative Normal NEG [facility] Comment on above: Result Comment: for Influenza B Antigen. Performed By: #### F LUABA #### [facility] [address] [place] [address] [place] [address] Stars Analytical Lead: Sarai Howell MD Lactic Acidon 04-25-2023 Lactate [Moles/Vol] 1.3 mmol/L Normal 0.5-2.2 [facility] Comment on above: Performed By: #### L ACTIC #### [facility] [address] [place] [address] [place] [address] Stars Analytical Lead: Sarai Howell MD [id number] 04-25-2023 SARS-CoV-2 (COVID-19) RNA JOSÉ MIGUEL+probe Ql (Unsp spec) Not detected Normal NOTDET [facility] Comment on above: Result Comment: Rapid [...] management decisions. Fact sheet for Healthcare Providers: https://www.fda.gov/media/374243/download Fact sheet for Patients: https://www.fda.gov/media/885389/download Methodology: Isothermal Nucleic Acid Amplification Performed By: #### F LUABA #### [address] [place] [address] Stars Analytical Lead: Sarai Howell MD Troponinon 04-25-2023 Troponin, High Sens 26 ng/L High [address] Comment on above: Result Comment: High Sensitivity Troponin values cannot be compared with other Troponin methodologies. Performed By: #### F LUABA #### [facility] [address] [place] [address] Dr. [place], [facility] Stars Analytical Lead: Sarai Howell MD Troponin, High Sens 27 ng/L High 022 [facility] Comment on above: Result Comment: High Sensitivity Troponin values cannot be compared with other Troponin methodologies. Performed By: #### T ROPI, CDP, BMP #### [address] [place] [address] Stars Analytical Lead: Sarai Howell MD UA w/Reflex Cultureon 2022 Bilirubin, SemiQt,Ur SMALL Abnormal NEG [facility] Comment on above: Performed By: #### F LUABA #### [facility] [address] [place] [address] [place] [address] Stars Analytical Lead: Sarai Howell MD Blood, Urine 3+ Abnormal NEG [facility] Comment on above: Performed By: #### F LUABA #### [facility] [address] [place] [address] [place] [phone] Stars Analytical Lead: Sarai Howell MD Clarity (U) Cloudy Abnormal CLEAR [facility] Comment on above: Performed By: #### F LUABA #### [facility] [address] [place] [address] [place] [address] Stars Analytical Lead: Sarai Howell MD Color (U) Yellow Normal YEL [facility] Comment on above: Performed By: #### F LUABA #### [facility] [address] [place] [address] Dr. [place], [place] [phone] Stars Analytical Lead: Sarai Howell MD Glucose Ql (U) Negative Normal NEG [facility] Comment on above: Performed By: #### F LUABA #### [facility] [address] [place] [address] Dr. [place], [place] [phone] Stars Analytical Lead: Sarai Howell MD Ketones Ql (U) 1+ mg/dL Abnormal NEG [facility] Comment on above: Performed By: #### F LUABA #### [facility] [address] [place] [address] Dr. [place], [place] [phone] Stars Analytical Lead: Sarai Howell MD Leukocyte esterase Test strip Ql (U) TRACE Abnormal NEG [facility] Comment on above: Performed By: #### F LUABA #### [address] [place], [place] [phone] Stars Analytical Lead: Sarai Howell MD Nitrite,Ur Negative Normal NEG [facility] Comment on above: Performed By: #### F LUABA #### [facility] [address] [place] [address] Dr. [place], [place] [phone] Stars Analytical Lead: Sarai Howell MD PH,Ur 6.0 Normal 5.0-9.0 [facility] Comment on above: Performed By: #### F LUABA #### [facility] [address] [place] [address] Dr. [place], [place] [phone] Stars Analytical Lead: Sarai Howell MD Protein Ql (U) 1+ mg/dL Abnormal NEG [facility] Comment on above: Performed By: #### F LUABA #### [facility] [address] [place], [place] [phone] Stars Analytical Lead: Sarai Howell MD Spec. [place],Ur >1.030 High 1.010-1.02 0 [facility] Comment on above: Performed By: #### F LUABA #### [facility] [address] [place], [place] [phone] Stars Analytical Lead: Sarai Howell MD Urobilinogen,Ur Normal Normal 0.0-1.0 [facility] Comment on above: Performed By: #### F LUABA #### [facility] [address] [place], [place] [phone] Stars Analytical Lead: Sarai Howell MD Urinalysis,Microon 3 Bacteria 1+ Abnormal NONE [facility] Comment on above: Performed By: #### F LUABA #### [facility] [address] [place], [place] [phone] Stars Analytical Lead: Sarai Howell MD Epithelial cells LM Ql (Urine sed) None Finley 0-5 [facility] Comment on above: Performed By: #### F LUABA #### [facility] [address] [place], [place] [phone] Stars Analytical Lead: Sarai Howell MD Mucus Strands TRACE Abnormal NONE [facility] Comment on above: Performed By: #### F LUABA #### [facility] [address] [place], [place] [phone] Stars Analytical Lead: Sarai Howell MD Urine RBC's 20 TO 50 Normal 0-2 [facility] Comment on above: Performed By: #### F LUABA #### [facility] [address] [place], [place] [phone] Stars Analytical Lead: Sarai Hoewll MD Urine WBC's 2 TO 5 Normal 0-5 [facility] Comment on above: Performed By: #### F HENRY #### [facility] [address] [place] [address] Stars Analytical Lead: Sarai Howell MD XR CHEST PORTABLEon 04-25-20 [...] Sarai Henson MD 04/25/23 Final result Normal [facility] BNPon 01-17-2023 Natriuretic peptide B (Bld) [Mass/Vol] 210.0 pg/mL Normal <=900.0 [facility] Comment on above: Performed By: #### B MATCHING MACHINE OPERATOR, CMADM, CMP ####[facility] [address] [place] [address]Dr. Donna Malone CARDIAC MJ ADMITon 023 CK [Catalytic activity/Vol] 67 U/L Normal 39-308 [facility] Comment on above: Performed By: #### B MATCHING MACHINE OPERATOR, CMADM, CMP ####[facility] [address] [place] [phone]. Donna Malone CK.MB [Mass/Vol] 2.51 ng/mL Normal <=3.60 [facility] Comment on above: Performed By: #### B MATCHING MACHINE OPERATOR, CMADM, CMP ####[facility] [address] [place] [address]Dr. Donna Malone HSTROP 9.2 pg/mL Normal 4.0-76.1 [facility] Comment on above: Result Comment: CUT- OFF POINTS HAVE BEEN ESTABLISHED BASED ON THE FOURTH UNIVERSAL DEFINITIONS OF MYOCARDIALINFARCTION. THE UPPER REFERENCE LIMIT (URL) OF TROPONIN, DEFINED THE 99TH PERCENTILE OFcTnI DISTRIBUTION IN A REFERENCE POPULATION, HAS BEEN CONFIRMED THE DECISION THRESHOLDFOR IA DIAGNOSIS. Performed By: #### B MATCHING MACHINE OPERATOR, CMADM, CMP ####[facility] [address] [place] [address]Dr. Donna Malone BINDU 68 ng/mL Normal 16-96 [facility] Comment on above: Performed By: #### B MATCHING MACHINE OPERATOR, CMADM, CMP ####[facility] [address] [place] [address]Dr. Donna Faisal CBC AUTO DIFFon 01-17-2023 BASO # 0.1 103/ul Normal 0.0-0.1 [facility] Comment on above: Performed By: #### C BC ####[facility] [address] [place], [place] [address]Dr. Donna Malone Basophils/100 WBC (Bld) 0.8 % Normal 0.2-2.0 [facility] Comment on above: Performed By: #### C BC ####[facility] Sony[address] [place], [place] [address]Dr. Donna Faisal EO # 0.1 103/ul Normal 0.0-0.7 [facility] Comment on above: Performed By: #### C BC ####[facility] [address] [place], [place] [address]Dr. Rubyyvan Malone Eosinophils/100 WBC (Bld) 1.4 % Normal 0.9-7.0 [facility] Comment on above: Performed By: #### C BC ####[facility] [address] [place], [place] [address]Dr. Rubyyvan Malone Erythrocyte distribution width (RBC) [Ratio] 14.6 % Normal 11.0-15.0 [facility] Comment on above: Performed By: #### C BC ####[facility] Fay[address] [place], [place] [address]Dr. Rubyyvan Faisal Hematocrit (Bld) [Volume fraction] 43.9 % Normal 42.0-54.0 [facility] Comment on above: Performed By: #### C BC ####[facility] [address] [place], [place] [address]Dr. Donna Malone Hemoglobin (Bld) [Mass/Vol] 14.2 g/dL Normal 14.0-18.0 [facility] Comment on above: Performed By: #### C BC ####[facility] [address] [place] [address]Dr. Donna Malone IG # 0.04 10e3/ul Critically high 0.00-0.03 [facility] Comment on above: Performed By: #### C BC ####[facility] Rzugrtxssi[address] [place] [address]Dr. Donna Malone IG % 0.4 % Normal 0.0-0.5 [facility] Comment on above: Performed By: #### C BC ####[facility] [address] [place], [place] [address]DrElizabeth Malone LYMPH # 2.3 103/ul Normal 1.2-3.8 The [facility] Comment on above: Performed By: #### C BC ####[facility] [address] [place], [place] [address]Dr. Donna Malone Lymphocytes/100 WBC (Bld) 25.4 % Normal 20.5-60.0 [facility] Comment on above: Performed By: #### C BC ####[facility] Gykhxdtttc[address] [place] [address]Dr. Donna Malone MANUAL DIFF REQ NO Normal [facility] Comment on above: Performed By: #### C BC ####[facility] [address] [place], [place] [address]DrElizabeth Malone MCH (RBC) [Entitic mass] 29.6 pg Normal 25.9-34.0 [facility] Comment on above: Performed By: #### C BC ####[facility] [address] [place], [place] [address]DrElizabeth Malone MCHC (RBC) [Mass/Vol] 32.3 g/dL Normal 29.9-35.2 [facility] Comment on above: Performed By: #### C BC ####[facility] [address] [place], [place] [address]Dr. Donna Malone MCV (RBC) [Entitic vol] 91.5 fL Normal 80.0-94.0 [facility] Comment on above: Performed By: #### C BC ####[facility] Joywh[address]spg[address] [place], [place] [address]Dr. Donna Malone MONO # 0.7 103/ul Normal 0.3-0.8 The [facility] Comment on above: Performed By: #### C BC ####[facility] [address] [place], [place] [address]Dr. Donna Faisal Monocytes/100 WBC (Bld) 7.5 % Normal 1.7-12.0 [facility] Comment on above: Performed By: #### C BC ####[facility] [address] [place], [place] [address]Dr. Donna Malone NEUT # 5.9 103/ul Normal 1.4-6.5 [facility] Comment on above: Performed By: #### C BC ####[facility] N[address] [place], [place] [address]Dr. Donna Faisal Neutrophils/100 WBC (Bld) 64.5 % Normal 43.0-75.0 The [facility] Comment on above: Performed By: #### C BC ####[facility] Ar[address] [place], [place] [address]Dr. Donna Faisal Platelet mean volume (Bld) [Entitic vol] 10.6 fL Normal 9.5-13.5 The [facility] Comment on above: Performed By: #### C BC ####[facility] [address] [place], [place] [address]Dr. Donna Faisal PLT 296 103/ul Normal 150-450 [facility] Comment on above: Performed By: #### C BC ####[facility] [address] [place], [place] [address]Dr. Rubyyvan Faisal RBC 4.80 106/ul Normal 4.70-6.10 The [facility] Comment on above: Performed By: #### C BC ####[facility] P[address] [place], [place] [address]Dr. Donna Malone WBC 9.1 103/ul Normal 4.0-11.0 [facility] Comment on above: Performed By: #### C BC ####[facility] [address] [place] [address] CT CSPINE WO CONon 3 CT CSPINE WO CON Normal The [facility] CT HEAD WO CONon 01-17-2023 CT HEAD WO CON Normal [facility] CT LSPINE WO CONon 3 CT LSPINE WO CON Normal [facility] PROF 14(COMP METB)on 023 Albumin [Mass/Vol] 3.3 g/dL Critically low 3.4-5.0 Th e [facility] Comment on above: Performed By: #### B MATCHING MACHINE OPERATOR, CMADM, CMP ####[facility] [address]xxk[address] [place] [address]Dr. Donna Malone Albumin/Globulin [Mass ratio] 0.8 {ratio} Normal [facility] Comment on above: Performed By: #### B MATCHING MACHINE OPERATOR, CMADM, CMP ####[facility] [address]kw[address]px[address] [place] [address]Dr. Donna Malone ALP [Catalytic activity/Vol] 55 U/L Normal 46-116 [facility] Comment on above: Performed By: #### B MATCHING MACHINE OPERATOR, CMADM, CMP ####[facility] [address] [place] [address]Dr. Donna Malone ALT [Catalytic activity/Vol] 15 U/L Critically low 16-63 [facility] Comment on above: Performed By: #### B MATCHING MACHINE OPERATOR, CMADM, CMP ####[facility] [address]ja[address] [place] [address]Dr. Donna Mlaone Anion gap [Moles/Vol] 9.6 mmol/L Normal [facility] Comment on above: Performed By: #### B MATCHING MACHINE OPERATOR, CMADM, CMP ####[facility] Cx[address]qpvagd[address] [place] [address]Dr. Donna Malone AST [Catalytic activity/Vol] 14 U/L Critically low 15-37 [facility] Comment on above: Performed By: #### B MATCHING MACHINE OPERATOR, CMADM, CMP ####[facility] Pwcabb[address]ui[address] [place] [address]Dr. Donna Malone Bilirubin [Mass/Vol] 0.2 mg/dL Normal 0.2-1.0 The [facility] Comment on above: Performed By: #### B MATCHING MACHINE OPERATOR, CMADM, CMP ####[facility] [address]hj[address] [place] [address]Dr. Donna Malone Calcium [Mass/Vol] 8.6 mg/dL Normal 8.5-10.1 The [facility] Comment on above: Performed By: #### B MATCHING MACHINE OPERATOR, CMADM, CMP ####[facility] Xxvxefmjnk4796 [place] [address]Dr. Donna Malone Chloride [Moles/Vol] 107 mmol/L Normal 98-107 The [facility] Comment on above: Performed By: #### B MATCHING MACHINE OPERATOR, CMADM, CMP ####[facility] R[address] [place], [place] [address]Dr. Donna Malone CO2 [Moles/Vol] 25.9 mmol/L Normal 21.0-32.0 The [facility] Comment on above: Performed By: #### B MATCHING MACHINE OPERATOR, CMADM, CMP ####[facility] [address]qf[address] [place], [place] [address]Dr. Donna Malone Creatinine [Mass/Vol] 1.12 mg/dL Normal 0.70-1.30 The [facility] Comment on above: Performed By: #### B MATCHING MACHINE OPERATOR, CMADM, CMP ####[facility] [address] [place], [place] [address]Dr. Donna Malone EGFR-AF SAMOAN >60 Normal >=60 The [facility] Comment on above: Performed By: #### B MATCHING MACHINE OPERATOR, CMADM, CMP ####[facility] [address]phnjbfav[address] [place], [place] [address]Dr. Donna Malone EGFR-NON AF SAMOAN >60 Normal >=60 The [facility] Comment on above: Performed By: #### B MATCHING MACHINE OPERATOR, CMADM, CMP ####[facility] Eyqinfyzof[address] [place] [address]Dr. Donna Malone Globulin (S) [Mass/Vol] 4.2 g/dL Normal [facility] Comment on above: Performed By: #### B MATCHING MACHINE OPERATOR, CMADM, CMP ####[facility] Mvqwesqigu[address] [place] [address]Dr. Donna Malone Glucose [Mass/Vol] 163 mg/dL Critically high 74-106 T [facility] Comment on above: Performed By: #### B MATCHING MACHINE OPERATOR, CMADM, CMP ####[facility] Kqrwav[address]auh[address] [place] [address]Dr. Donna Malone Potassium [Moles/Vol] 4.5 mmol/L Normal 3.5-5.1 [facility] Comment on above: Performed By: #### B MATCHING MACHINE OPERATOR, CMADM, CMP ####[facility] [address]ns[address]qr[address] [place], [place] [address]Dr. Donna Malone Protein [Mass/Vol] 7.5 g/dL Normal 6.4-8.2 The [facility] Comment on above: Performed By: #### B MATCHING MACHINE OPERATOR, CMADM, CMP ####[facility] Croqpljtvk[address] [place], [place] [address]Dr. Donna Malone Sodium [Moles/Vol] 138 mmol/L Normal 136-145 [facility] Comment on above: Performed By: #### B MATCHING MACHINE OPERATOR, CMADM, CMP ####[facility] C[address]ijfrfpz[address] [place] [address]Dr. Donna Malone Urea nitrogen [Mass/Vol] 11.0 mg/dL Normal 7.0-18.0 [facility] Comment on above: Performed By: #### B MATCHING MACHINE OPERATOR, CMADM, CMP ####[facility] Clbdfoozgx26[address] [place] [address]Dr. Donna Malone Urea nitrogen/Creatinine [Mass ratio] 9.8 mg/mg Normal The [facility] Comment on above: Performed By: #### B MATCHING MACHINE OPERATOR, CMADM, CMP ####[facility] Lmvzwqypji4[address] [place] [address]Dr. Donna Malone PROTIMEon 01-17-2023 INR Coag (PPP) [Relative time] 0.94 {INR} Normal [facility] Comment on above: Performed By: #### P TT, PT ####[facility] S[address]yqdegwf[address] [place], [place] [address]Dr. Donna Malone INR GUIDELINES SEE BELOW Normal The [facility] Comment on above: Result Comment: FLORESITA RED INR: 2.0 - 3.0 CONDITIONS NOT LISTED BELOW 2.5 - 3.5 FOR PROSTHETIC HEART VALVE REPLACEMENT 2.5 - 3.5 RECURRENT THROMBOSIS Performed By: #### P TT, PT ####[facility] [address] [place], [place] [address]Dr. Donna Malone PT Coag (PPP) [Time] 10.0 s Normal 9.0-11.6 [facility] Comment on above: Performed By: #### P TT, PT ####[facility] Bwkcf[address]cpk[address] [place], [place] [address]Dr. Rubyyvan Malone PTTon 01-17-2023 aPTT Coag (Bld) [Time] 29.6 s Normal 22.3-36.2 [facility] Comment on above: Performed By: #### P TT, PT ####[facility] Damce[address]xaz[address] [place], [place] [address]Dr. Donna Malone CBC AUTO DIFFon 11-17-2022 BASO # 0.0 103/ul Normal 0.0-0.1 [facility] Comment on above: Performed By: #### C BC ####[facility] [address]fw[address] [place], [place] [address]Dr. Donna Malone Basophils/100 WBC (Bld) 0.2 % Normal 0.2-2.0 The [facility] Comment on above: Performed By: #### C BC ####[facility] Uqx[address]jsuoo[address] [place], [place] [address]Dr. Donna Malone EO # 0.0 103/ul Normal 0.0-0.7 [facility] Comment on above: Performed By: #### C BC ####[facility] M[address]trtnw[address] [place], [place] [address]Dr. Donna Malone Eosinophils/100 WBC (Bld) 0.0 % Critically low 0.9-7.0 The [facility] Comment on above: Performed By: #### C BC ####[facility] Lrjlaezczn[address] [place] [address]Dr. Donna Malone Erythrocyte distribution width (RBC) [Ratio] 14.5 % Normal 11.0-15.0 [facility] Comment on above: Performed By: #### C BC ####[facility] Mmewzitmeq[address] [place] [address]Dr. Donna Malone Hematocrit (Bld) [Volume fraction] 39.6 % Critically low 42.0-54.0 [facility] Comment on above: Performed By: #### C BC ####[facility] Mir[address]cn[address] [place], [place] [address]Dr. Donna Malone Hemoglobin (Bld) [Mass/Vol] 13.3 g/dL Critically low 14.0-18.0 [facility] Comment on above: Performed By: #### C BC ####[facility] [address]xt[address] [place], [place] [address]Dr. Donna Malone IG # 0.06 10e3/ul Critically high 0.00-0.03 [facility] Comment on above: Performed By: #### C BC ####[facility] [address] [place], [place] [address]Dr. Donna Malone IG % 0.5 % Normal 0.0-0.5 [facility] Comment on above: Performed By: #### C BC ####[facility] In[address] [place], [place] [address]Dr. Donna Malone LYMPH # 1.0 103/ul Critically low 1.2-3.8 The [facility] Comment on above: Performed By: #### C BC ####[facility] I[address]vrwmjm[address] [place], [place] [address]Dr. Donna Malone Lymphocytes/100 WBC (Bld) 8.3 % Critically low 20.5-60.0 The [facility] Comment on above: Performed By: #### C BC ####[facility] [address] [place], [place] [address]Dr. Rubyyvan Malone MANUAL DIFF REQ NO Normal [facility] Comment on above: Performed By: #### C BC ####[facility] [address] [place] [id number]. Donna Malone MCH (RBC) [Entitic mass] 29.4 pg Normal 25.9-34.0 [facility] Comment on above: Performed By: #### C BC ####[facility] En[address]vxwcui[address] [place] [id number]. Donna Malone MCHC (RBC) [Mass/Vol] 33.6 g/dL Normal 29.9-35.2 [facility] Comment on above: Performed By: #### C BC ####[facility] Orgek[address]qxw[address] [place] [id number]. Donna Faisal MCV (RBC) [Entitic vol] 87.6 fL Normal 80.0-94.0 The [facility] Comment on above: Performed By: #### C BC ####[facility] [address] [place], [place] [address]Dr. Donna Malone MONO # 0.8 103/ul Normal 0.3-0.8 The [facility] Comment on above: Performed By: #### C BC ####[facility] [address]workfhzbi[address] [place] [address]Dr. Rubyyvan Malone Monocytes/100 WBC (Bld) 6.6 % Normal 1.7-12.0 The [facility] Comment on above: Performed By: #### C BC ####[facility] Jpuzlbyteg[address] [place], [place] [address]Dr. Rubyyvan Malone NEUT # 10.2 103/ul Critically high 1.4-6.5 The [facility] Comment on above: Performed By: #### C BC ####[facility] Gdzyhrblox[address] [place], [place] [id number]. Donna Malone Neutrophils/100 WBC (Bld) 84.4 % Critically high 43.0-75.0 The [facility] Comment on above: Performed By: #### C BC ####[facility] Vwqpjqeitg4[address] [place], [place] [address]Dr. Donna Malone Platelet mean volume (Bld) [Entitic vol] 11.5 fL Normal 9.5-13.5 The [facility] Comment on above: Performed By: #### C BC ####[facility] Zq[address]kezq[address] [place] [id number]. Donna Malone PLT 204 103/ul Normal 150-450 The [facility] Comment on above: Performed By: #### C BC ####[facility] Qwfjgyhdtf8[address] [place] [id number]. Donna Malone RBC 4.52 106/ul Critically low 4.70-6.10 [facility] Comment on above: Performed By: #### C BC ####[facility] Nbbszesisd7[address] [place] [id number]. Donna Malone WBC 12.0 103/ul Critically high 4.0-11.0 The [facility] Comment on above: Performed By: #### C BC ####[facility] Cxnynmdxzq43[address] [place] [address]Dr. Donna Malone MAGNESIUMon 11-17-2022 Magnesium [Mass/Vol] 1.9 mg/dL Normal 1.8-2.4 [facility] Comment on above: Performed By: #### C MP, MG ####[facility] Pietwlpelh[address] [place] [address]Dr. Donna Malone PROF 14(COMP METB)on 023 Albumin [Mass/Vol] 3.2 g/dL Critically low 3.4-5.0 [facility] Comment on above: Performed By: #### C MP, MG ####[facility] Bpakkhhzqd[address] [place] [address]Dr. Donna Malone Albumin/Globulin [Mass ratio] 1.0 {ratio} Normal The [facility] Comment on above: Performed By: #### C MP, MG ####[facility] Aerijauyfi[address] [place] [address]Dr. Donna Malone ALP [Catalytic activity/Vol] 51 U/L Normal 46-116 The [facility] Comment on above: Performed By: #### C MP, MG ####[facility] Rkrfghkisl[address] [place] [address]Dr. Donna Malone ALT [Catalytic activity/Vol] 16 U/L Normal 16-63 The [facility] Comment on above: Performed By: #### C MP, MG ####[facility] Ohnvahavkl[address] [place] [address]Dr. Donna Malone Anion gap [Moles/Vol] 14.7 mmol/L Normal Th e [facility] Comment on above: Performed By: #### C MP, MG ####[facility] Dojzjmxdzc22[address] [place] [address]Dr. Donna Malone AST [Catalytic activity/Vol] 24 U/L Normal 15-37 The [facility] Comment on above: Performed By: #### C MP, MG ####[facility] Uztbepbbzr40[address] [place] [address]Dr. Donna Malone Bilirubin [Mass/Vol] 0.5 mg/dL Normal 0.2-1.0 [facility] Comment on above: Performed By: #### C MP, MG ####[facility] Lbqhlegyue22[address] [place], [place] [address]Dr. Donna Malone Calcium [Mass/Vol] 8.6 mg/dL Normal 8.5-10.1 [facility] Comment on above: Performed By: #### C MP, MG ####[facility] Auadffvdaa[address] [place], [place] [address]Dr. Donan Malone Chloride [Moles/Vol] 108 mmol/L Critically high 98-107 The [facility] Comment on above: Performed By: #### C MP, MG ####[facility] Yevqughziw523[address] [place], [place] [address]Dr. Rubyyvan Malone CO2 [Moles/Vol] 21.6 mmol/L Normal 21.0-32.0 The [facility] Comment on above: Performed By: #### C MP, MG ####[facility] Ylrbotppzc07[address] [place], [place] [address]Dr. Donna Malone Creatinine [Mass/Vol] 0.83 mg/dL Normal 0.70-1.30 The [facility] Comment on above: Performed By: #### C MP, MG ####[facility] Ofonvrbvwp35[address] [place], [place] [address]Dr. Donna Malone EGFR-AF SAMOAN >60 Normal >=60 [facility] Comment on above: Performed By: #### C MP, MG ####[facility] Wnzdrfpdxl[address] [place] [address]Dr. Donna Malone EGFR-NON AF SAMOAN >60 Normal >=60 [facility] Comment on above: Performed By: #### C MP, MG ####[facility] Iyimmputva67[address] [place] [address]Dr. Donna Malone Globulin (S) [Mass/Vol] 3.2 g/dL Normal [facility] Comment on above: Performed By: #### C MP, MG ####[facility] Qdvwwfwbqm84[address] [place] [address]Dr. Donna Malone Glucose [Mass/Vol] 162 mg/dL Critically high 74-106 T [facility] Comment on above: Performed By: #### C MP, MG ####[facility] Zgphrveaqf5158[address] [place], [place] [address]Dr. Donna Malone Potassium [Moles/Vol] 3.3 mmol/L Critically low 3.5-5.1 [facility] Comment on above: Performed By: #### C MP, MG ####[facility] Nbzroayrik27[address] [place], [place] [address]Dr. Donna Malone Protein [Mass/Vol] 6.4 g/dL Normal 6.4-8.2 The [facility] Comment on above: Performed By: #### C MP, MG ####[facility] Aataskhhig9[address] [place], [place] [address]Dr. Donna Malone Sodium [Moles/Vol] 141 mmol/L Normal 136-145 [facility] Comment on above: Performed By: #### C MP, MG ####[facility] Rmpdketgfg5249[address] [place], [place] [address]Dr. Donna Malone Urea nitrogen [Mass/Vol] 12.0 mg/dL Normal 7.0-18.0 [facility] Comment on above: Performed By: #### C MP, MG ####[facility] Gyphjbtscr1047[address] [place], [place] [address]Dr. Donna Malone Urea nitrogen/Creatinine [Mass ratio] 14.5 mg/mg Normal The [facility] Comment on above: Performed By: #### C MP, MG ####[facility] Bxebernppf8830[address] [place], [place] [address]Dr. Donna Malone AMMONIAon 11-16-2022 Ammonia (P) [Mass/Vol] ug/dL Critically low 11-32 The [facility] Comment on above: Performed By: #### A MM ####[facility] Jtsjyelwde6844[address] [place], [place] [address]Dr. Donna Malone CBC AUTO DIFFon 11-16-2022 BASO # 0.0 103/ul Normal 0.0-0.1 The [facility] Comment on above: Performed By: #### C BC ####[facility] Swlmybvguu9876[address] [place], [place] [address]Dr. Rubyyvan Malone Basophils/100 WBC (Bld) 0.2 % Normal 0.2-2.0 The [facility] Comment on above: Performed By: #### C BC ####[facility] Bvznjckvob5[address] [place], [place] [address]Dr. Donna Malone EO # 0.0 103/ul Normal 0.0-0.7 The [facility] Comment on above: Performed By: #### C BC ####[facility] Ittsmkfqts4[address] [place], [place] [address]Dr. Donna Malone Eosinophils/100 WBC (Bld) 0.0 % Critically low 0.9-7.0 The [facility] Comment on above: Performed By: #### C BC ####[facility] Msxsccghhp7467[address] [place], [place] [address]Dr. Donna Malone Erythrocyte distribution width (RBC) [Ratio] 14.4 % Normal 11.0-15.0 The [facility] Comment on above: Performed By: #### C BC ####[facility] Eginjbqpxj4474[address] [place], [place] [address]Dr. Donna Malone Hematocrit (Bld) [Volume fraction] 38.6 % Critically low 42.0-54.0 The [facility] Comment on above: Performed By: #### C BC ####[facility] Pbgghwdznf6[address] [place] [id number]. Donna Malone Hemoglobin (Bld) [Mass/Vol] 13.1 g/dL Critically low 14.0-18.0 The [facility] Comment on above: Performed By: #### C BC ####[facility] Iygwehiedj[address] [place] [address]Dr. Donna Malone IG # 0.05 10e3/ul Critically high 0.00-0.03 The [facility] Comment on above: Performed By: #### C BC ####[facility] Drrdmcqnbi8[address] [place] [address]Dr. Donna Malone IG % 0.5 % Normal 0.0-0.5 The [facility] Comment on above: Performed By: #### C BC ####[facility] Dasqrvhrbr[address] [place] [address]Dr. Donna Malone LYMPH # 1.0 103/ul Critically low 1.2-3.8 The [facility] Comment on above: Performed By: #### C BC ####[facility] Idolmaitdp8[address] [place], [place] [address]Dr. Donna Malone Lymphocytes/100 WBC (Bld) 10.8 % Critically low 20.5-60.0 The [facility] Comment on above: Performed By: #### C BC ####[facility] Cnunhtoftq[address] [place], [place] [address]Dr. Donna Malone MANUAL DIFF REQ NO Normal The [facility] Comment on above: Performed By: #### C BC ####[facility] Kbdkekllyq600[address] [place], [place] [address]Dr. Donna Malone MCH (RBC) [Entitic mass] 29.4 pg Normal 25.9-34.0 The [facility] Comment on above: Performed By: #### C BC ####[facility] Jarbouupaq6858[address] [place], [place] [address]Dr. Donna Malone MCHC (RBC) [Mass/Vol] 33.9 g/dL Normal 29.9-35.2 The [facility] Comment on above: Performed By: #### C BC ####[facility] Qavrgrzcqr34[address] [place] [id number]. Donna Malone MCV (RBC) [Entitic vol] 86.7 fL Normal 80.0-94.0 The [facility] Comment on above: Performed By: #### C BC ####[facility] Brzmgleawl42[address] [place] [id number]. Donna Malone MONO # 0.4 103/ul Normal 0.3-0.8 The [facility] Comment on above: Performed By: #### C BC ####[facility] Snxqytjeny37[address] [place] [address]Dr. Donna Malone Monocytes/100 WBC (Bld) 4.4 % Normal 1.7-12.0 The [facility] Comment on above: Performed By: #### C BC ####[facility] Aacqdbafzc0936[address] [place], [place] [address]Dr. Donna Malone NEUT # 7.9 103/ul Critically high 1.4-6.5 The [facility] Comment on above: Performed By: #### C BC ####[facility] Kdbskzwtba9476[address] [place], [place] [address]Dr. Donna Malone Neutrophils/100 WBC (Bld) 84.1 % Critically high 43.0-75.0 The [facility] Comment on above: Performed By: #### C BC ####[facility] Zougzabtfs36[address] [place] [phone]. Donna Malone Platelet mean volume (Bld) [Entitic vol] 11.3 fL Normal 9.5-13.5 The [facility] Comment on above: Performed By: #### C BC ####[facility] Wrsxypkxgf06[address] [place] [id number]. Donna Faisal PLT 201 103/ul Normal 150-450 The [facility] Comment on above: Performed By: #### C BC ####[facility] Chwktdlsxj450[address] [place] [id number]. Donna Malone RBC 4.45 106/ul Critically low 4.70-6.10 The [facility] Comment on above: Performed By: #### C BC ####[facility] Nafzdqyiqt4[address] [place] [address]Dr. Donna Malone WBC 9.3 103/ul Normal 4.0-11.0 [facility] Comment on above: Performed By: #### C BC ####[facility] Afpyvxrgtc28[address] [place], [place] [address]Dr. Donna Malone GLYCOHEMOGLOBIN A1Con 2022 ADA RECOMMENDATION SEE BELOW Normal [facility] Comment on above: Result Comment: ADA RECOMMENDED LIMIT 4.0 - 6.0 ADA THERAPEUTIC TARGET < 7.0 ACTION SUGGESTED > 7.0 Performed By: #### A 1C ####[facility] Xhhjbrixlm4215[address] [place], [place] [address]Dr. Donna Malone Glucose [Mass/Vol] 128 mg/dL Normal [facility] Comment on above: Performed By: #### A 1C ####[facility] Ktqhspsmun7[address] [place], [place] [address]Dr. Donna Malone HbA1c (Bld) [Mass fraction] 6.1 % Normal 4.5-6.2 [facility] Comment on above: Performed By: #### A 1C ####[facility] Isitrbwtlw97[address] [place], [place] [address]Dr. Donna Malone MAGNESIUMon 11-16-2022 Magnesium [Mass/Vol] 1.8 mg/dL Normal 1.8-2.4 [facility] Comment on above: Performed By: #### C MP, MG ####[facility] Lwnkmrsopo0224[address] [place], [place] [address]Dr. Donna Malone POINT OF CARE GLUCOSEon 11-07 Glucose [Mass/Vol] 170 mg/dL Critically high 74-106 [facility] Comment on above: Performed By: #### P OCGLUC ####[facility] Axiwgklsix06[address] [place], [place] [address]Dr. Donna Malone Glucose [Mass/Vol] 158 mg/dL Critically high 74-106 [facility] Comment on above: Performed By: #### P OCGLUC ####[facility] Kpwhwrmkut96[address] [place], [place] [address]Dr. Donna Malone Glucose [Mass/Vol] 176 mg/dL Critically high 74-106 T [facility] Comment on above: Performed By: #### P OCGLUC ####[facility] Tmxdjrabhu[address] [place] [address]Dr. Donna Malone PROF 14(COMP METB)on 023 Albumin [Mass/Vol] 3.1 g/dL Critically low 3.4-5.0 [facility] Comment on above: Performed By: #### C MP, MG ####[facility] Ijszkhgnfh27[address] [place] [address]Dr. Donna Malone Albumin/Globulin [Mass ratio] 0.9 {ratio} Normal [facility] Comment on above: Performed By: #### C MP, MG ####[facility] Xdncylpgaq4060[address] [place], [place] [address]Dr. Donna Malone ALP [Catalytic activity/Vol] 52 U/L Normal 46-116 [facility] Comment on above: Performed By: #### C MP, MG ####[facility] Dnhghcdzfj58[address] [place] [address]Dr. Donna Malone ALT [Catalytic activity/Vol] 13 U/L Critically low 16-63 [facility] Comment on above: Performed By: #### C MP, MG ####[facility] Gdeyowscok[address] [place] [address]Dr. Donna Malone Anion gap [Moles/Vol] 15.7 mmol/L Normal [facility] Comment on above: Performed By: #### C MP, MG ####[facility] Qllgipprgd5161 [place] [address]Dr. Donna Malone AST [Catalytic activity/Vol] 16 U/L Normal 15-37 [facility] Comment on above: Performed By: #### C MP, MG ####[facility] Ulesupzuhj69[address] [place] [address]Dr. Donna Malone Bilirubin [Mass/Vol] 0.5 mg/dL Normal 0.2-1.0 [facility] Comment on above: Performed By: #### C MP, MG ####[facility] Fxsmyuutug8470[address] [place], [place] [address]Dr. Donna Malone Calcium [Mass/Vol] 8.6 mg/dL Normal 8.5-10.1 [facility] Comment on above: Performed By: #### C MP, MG ####[facility] Awwyukmwhs[address] [place] [address]Dr. Donna Faisal Chloride [Moles/Vol] 109 mmol/L Critically high 98-107 [facility] Comment on above: Performed By: #### C MP, MG ####[facility] Kphhtayzhu9365[address] [place], [place] [address]Dr. Donna Malone CO2 [Moles/Vol] 21.7 mmol/L Normal 21.0-32.0 [facility] Comment on above: Performed By: #### C MP, MG ####[facility] Ocbphkssfp308[address] [place], [place] [address]Dr. Rubyyvan Malone Creatinine [Mass/Vol] 0.99 mg/dL Normal 0.70-1.30 The [facility] Comment on above: Performed By: #### C MP, MG ####[facility] Pomnnvyvkf8[address] [place], [place] [address]Dr. Donna Faisal EGFR-AF SAMOAN >60 Normal >=60 [facility] Comment on above: Performed By: #### C MP, MG ####[facility] Dhbjqbxkus2766[address] [place], [place] [address]Dr. Donna Faisal EGFR-NON AF SAMOAN >60 Normal >=60 [facility] Comment on above: Performed By: #### C MP, MG ####[facility] Mbejybkvpk2233[address] [place], [place] [address]Dr. Donna Faisal Globulin (S) [Mass/Vol] 3.3 g/dL Normal The [facility] Comment on above: Performed By: #### C MP, MG ####[facility] Txpovruozq8958[address] [place], [place] [address]Dr. Donna Malone Glucose [Mass/Vol] 168 mg/dL Critically high 74-106 T [facility] Comment on above: Performed By: #### C MP, MG ####[facility] Reumnpnsyx198[address] [place], [place] [address]Dr. Yiyvan Malone Potassium [Moles/Vol] 3.4 mmol/L Critically low 3.5-5.1 The [facility] Comment on above: Performed By: #### C MP, MG ####[facility] Sdlljayuux36[address] [place] [address]Dr. Donna Malone Protein [Mass/Vol] 6.4 g/dL Normal 6.4-8.2 The [facility] Comment on above: Performed By: #### C MP, MG ####[facility] Egpldqedmz6[address] [place], [place] [address]Dr. Rubyyvan Malone Sodium [Moles/Vol] 143 mmol/L Normal 136-145 The [facility] Comment on above: Performed By: #### C MP, MG ####[facility] Rfxvhehmun3324[address] [place], [place] [address]Dr. Donna Malone Urea nitrogen [Mass/Vol] 9.0 mg/dL Normal 7.0-18.0 The [facility] Comment on above: Performed By: #### C MP, MG ####[facility] Rumjhftwvq5535[address] [place], [place] [address]Dr. Rubyyvan Malone Urea nitrogen/Creatinine [Mass ratio] 9.1 mg/mg Normal The [facility] Comment on above: Performed By: #### C MP, MG ####[facility] Lemvlimkou5138[address] [place], [place] [address]Dr. Donna Faisal XR CHEST 2 Von 11-16-2022 XR CHEST 2 V Normal [facility] AMMONIAon 11-15-2022 Ammonia (P) [Moles/Vol] 20 umol/L Normal 11-32 The [facility] Comment on above: Performed By: #### A MM ####[facility] Dzzytvvqoq24[address] [place], [place] [address]Dr. Rubyyvan Malone CBC AUTO DIFFon 11-15-2022 BASO # 0.0 103/ul Normal 0.0-0.1 The [facility] Comment on above: Performed By: #### C BC ####[facility] Frdddjzyuj30[address] [place], [place] [address]Dr. Donna Malone Basophils/100 WBC (Bld) 0.5 % Normal 0.2-2.0 [facility] Comment on above: Performed By: #### C BC ####[facility] Rdptmgjinq4[address] [place], [place] [address]Dr. Donna Malone EO # 0.1 103/ul Normal 0.0-0.7 The [facility] Comment on above: Performed By: #### C BC ####[facility] Muqhrwvavr0[address] [place], [place] [address]Dr. Rubyyvan Malone Eosinophils/100 WBC (Bld) 1.4 % Normal 0.9-7.0 [facility] Comment on above: Performed By: #### C BC ####[facility] Rpsxopzijq20[address] [place], [place] [address]Dr. Rubyyvan Malone Erythrocyte distribution width (RBC) [Ratio] 14.6 % Normal 11.0-15.0 [facility] Comment on above: Performed By: #### C BC ####[facility] Vtlfowotdi2694[address] [place], [place] [address]DrElizabeth Rubyyvan Malone Hematocrit (Bld) [Volume fraction] 36.8 % Critically low 42.0-54.0 [facility] Comment on above: Performed By: #### C BC ####[facility] Oqadvfwnrb30[address] [place], [place] [address]DrElizabeth Donna Malone Hemoglobin (Bld) [Mass/Vol] 12.1 g/dL Critically low 14.0-18.0 [facility] Comment on above: Performed By: #### C BC ####[facility] Uhibqwrcmm4874[address] [place], [place] [address]Dr. Rubyyvan Malone IG # 0.01 10e3/ul Normal 0.00-0.03 [facility] Comment on above: Performed By: #### C BC ####[facility] Mdzdbhpnbs044[address] [place], [place] [address]Dr. Donna Malone IG % 0.2 % Normal 0.0-0.5 [facility] Comment on above: Performed By: #### C BC ####[facility] Ifznjcrsua1355[address] [place], [place] [address]DrElizabeth Malone LYMPH # 1.7 103/ul Normal 1.2-3.8 [facility] Comment on above: Performed By: #### C BC ####[facility] Kortykxdlo[address] [place] [address]Dr. Donna Malone Lymphocytes/100 WBC (Bld) 27.0 % Normal 20.5-60.0 [facility] Comment on above: Performed By: #### C BC ####[facility] Bmoqateryp[address] [place] [address]Dr. Donna Malone MANUAL DIFF REQ NO Normal [facility] Comment on above: Performed By: #### C BC ####[facility] Kzekqpxuvs06[address] [place] [address]Dr. Donna Malone MCH (RBC) [Entitic mass] 29.5 pg Normal 25.9-34.0 [facility] Comment on above: Performed By: #### C BC ####[facility] Miqogmlnvh3[address] [place], [place] [address]Dr. Donna Malone MCHC (RBC) [Mass/Vol] 32.9 g/dL Normal 29.9-35.2 [facility] Comment on above: Performed By: #### C BC ####[facility] Ckdsgngonc[address] [place], [place] [address]Dr. Donna Malone MCV (RBC) [Entitic vol] 89.8 fL Normal 80.0-94.0 [facility] Comment on above: Performed By: #### C BC ####[facility] Zdufxpnvyk[address] [place], [place] [address]Dr. Donna Malone MONO # 0.4 103/ul Normal 0.3-0.8 [facility] Comment on above: Performed By: #### C BC ####[facility] Gnnatpivkc20[address] [place], [place] [address]Dr. Donna Malone Monocytes/100 WBC (Bld) 6.7 % Normal 1.7-12.0 [facility] Comment on above: Performed By: #### C BC ####[facility] Apvdgkhvlp[address] [place], [place] [address]DrElizabeth Malone NEUT # 4.0 103/ul Normal 1.4-6.5 [facility] Comment on above: Performed By: #### C BC ####[facility] Uywqwbvhxp22[address] [place] [address]Dr. Donna Faisal Neutrophils/100 WBC (Bld) 64.2 % Normal 43.0-75.0 [facility] Comment on above: Performed By: #### C BC ####[facility] Gyijusjaxn[address] [place] [address]Dr. Donna Faisal Platelet mean volume (Bld) [Entitic vol] 11.3 fL Normal 9.5-13.5 [facility] Comment on above: Performed By: #### C BC ####[facility] Jhpulpzzok8[address] [place] [address]Dr. Donna Malone PLT 169 103/ul Normal 150-450 [facility] Comment on above: Performed By: #### C BC ####[facility] Mfqmnmeflv88[address] [place] [address]Dr. Donna Malone RBC 4.10 106/ul Critically low 4.70-6.10 [facility] Comment on above: Performed By: #### C BC ####[facility] Wsvfctzlwa6[address] [place] [address]Dr. Rubyyvan Malone WBC 6.3 103/ul Normal 4.0-11.0 [facility] Comment on above: Performed By: #### C BC ####[facility] Kylvswhxrw[address] [place] [address]DrElizabeth Donna Faisal GLYCOHEMOGLOBIN A1Con 2022 ADA RECOMMENDATION SEE BELOW Normal [facility] Comment on above: Result Comment: ADA RECOMMENDED LIMIT 4.0 - 6.0 ADA THERAPEUTIC TARGET < 7.0 ACTION SUGGESTED > 7.0 Performed By: #### A 1C ####[facility] [address]vaazxqsor[address] [place], [place] [address]DrElizabeth Malone Glucose [Mass/Vol] 128 mg/dL Normal [facility] Comment on above: Performed By: #### A 1C ####[facility] Ucrcnblzdt[address] [place] [address]DrElizabeth Malone HbA1c (Bld) [Mass fraction] 6.1 % Normal 4.5-6.2 [facility] Comment on above: Performed By: #### A 1C ####[facility] Lwivcyqohs[address] [place] [address]Dr. Donna Malone MAGNESIUMon 11-15-2022 Magnesium [Mass/Vol] 1.6 mg/dL Critically low 1.8-2.4 [facility] Comment on above: Performed By: #### C MP, MG ####[facility] Tpusctmmly[address] [place] [address]Dr. Donna Malone POINT OF CARE GLUCOSEon Glucose [Mass/Vol] 165 mg/dL Critically high 74-106 [facility] Comment on above: Performed By: #### P OCGLUC ####[facility] Crufzaffox[address] [place], [place] [address]Dr. Donna Malone Glucose [Mass/Vol] 155 mg/dL Critically high 74-106 [facility] Comment on above: Performed By: #### P OCGLUC ####[facility] Mmxctcekcx54[address] [place], [place] [address]Dr. Donna Malone Glucose [Mass/Vol] 111 mg/dL Critically high 74-106 [facility] Comment on above: Performed By: #### P OCGLUC ####[facility] Nzxqzpmojz[address] [place] [address]Dr. Donna Malone PROF 14(COMP METB)on 023 Albumin [Mass/Vol] 2.9 g/dL Critically low 3.4-5.0 [facility] Comment on above: Performed By: #### C MP, MG ####[facility] Gutugnfepi[address] [place] [address]Dr. Donna Malone Albumin/Globulin [Mass ratio] 1.0 {ratio} Normal [facility] Comment on above: Performed By: #### C MP, MG ####[facility] Umaeatnceo[address] [place] [address]Dr. Donna Malone ALP [Catalytic activity/Vol] 38 U/L Critically low 46-116 [facility] Comment on above: Performed By: #### C MP, MG ####[facility] Epjjklguep99[address] [place] [address]Dr. Donna Malone ALT [Catalytic activity/Vol] 13 U/L Critically low 16-63 [facility] Comment on above: Performed By: #### C MP, MG ####[facility] Uqizuceivp14[address] [place] [address]Dr. Donna Malone Anion gap [Moles/Vol] 11.8 mmol/L Normal [facility] Comment on above: Performed By: #### C MP, MG ####[facility] Jyzkuiledp90[address] [place], [place] [address]Dr. Donna Malone AST [Catalytic activity/Vol] 15 U/L Normal 15-37 [facility] Comment on above: Performed By: #### C MP, MG ####[facility] Dtzgucesna7[address] [place], [place] [address]Dr. Donna Malone Bilirubin [Mass/Vol] 0.4 mg/dL Normal 0.2-1.0 [facility] Comment on above: Performed By: #### C MP, MG ####[facility] Oftysxcdlr0775[address] [place], [place] [address]Dr. Donna Malone Calcium [Mass/Vol] 8.2 mg/dL Critically low 8.5-10.1 [facility] Comment on above: Performed By: #### C MP, MG ####[facility] Nammldvljn955[address] [place], [place] [address]Dr. Donna Malone Chloride [Moles/Vol] 111 mmol/L Critically high 98-107 [facility] Comment on above: Performed By: #### C MP, MG ####[facility] Vgluixindc93[address] [place], [place] [address]Dr. Donna Malone CO2 [Moles/Vol] 27.9 mmol/L Normal 21.0-32.0 [facility] Comment on above: Performed By: #### C MP, MG ####[facility] Fexpspetlh47[address] [place], [place] [address]Dr. Donna Malone Creatinine [Mass/Vol] 0.99 mg/dL Normal 0.70-1.30 [facility] Comment on above: Performed By: #### C MP, MG ####[facility] Hmzjlrmzsn[address] [place] [id number]. Donna Malone EGFR-AF SAMOAN >60 Normal >=60 [facility] Comment on above: Performed By: #### C MP, MG ####[facility] Gtohdwntdf8[address] [place] [id number]. Donna Malone EGFR-NON AF SAMOAN >60 Normal >=60 [facility] Comment on above: Performed By: #### C MP, MG ####[facility] Zaquevwgfb2664 [place] [id number]. Donna Faisal Globulin (S) [Mass/Vol] 2.9 g/dL Normal [facility] Comment on above: Performed By: #### C MP, MG ####[facility] Ecnpvfjwqz024[address] [place] [address]Dr. Rubyyvan Faisal Glucose [Mass/Vol] 88 mg/dL Normal 74-106 [facility] Comment on above: Performed By: #### C MP, MG ####[facility] Xjkbcvqnuk4819 [place] [phone]. Donna Faisal Potassium [Moles/Vol] 3.7 mmol/L Normal 3.5-5.1 [facility] Comment on above: Performed By: #### C MP, MG ####[facility] Vwwwhjiozc3880 [place] [phone]. Rubyyvan Faisal Protein [Mass/Vol] 5.8 g/dL Critically low 6.4-8.2 [facility] Comment on above: Performed By: #### C MP, MG ####[facility] Pgtwdkixix0591 [place] [phone]. Rubyyvan Malone Sodium [Moles/Vol] 147 mmol/L Critically high 136-145 [facility] Comment on above: Performed By: #### C MP, MG ####[facility] Zufsmapprg0481 [place] [phone]. Donna Malone Urea nitrogen [Mass/Vol] 12.0 mg/dL Normal 7.0-18.0 [facility] Comment on above: Performed By: #### C MP, MG ####[facility] Vbtrcuebea6081 [place] [address]Dr. Donna Malone Urea nitrogen/Creatinine [Mass ratio] 12.1 mg/mg Normal [facility] Comment on above: Performed By: #### C MP, MG ####[facility] Eewocujajv56[address] [place] [address]Dr. Donna Malone ACETONE SERUMon 11-14-2022 ACETONE Negative Normal NEGATIVE [facility] Comment on above: Performed By: #### A CETON ####[facility] Gmjekvshjv[address] [place], [place] [address]Dr. Donna Malone AMMONIAon 11-14-2022 Ammonia (P) [Moles/Vol] 17 umol/L Normal [facility] Comment on above: Performed By: #### A MM ####[facility] Cxfhvdlqmb65[address] [place], [place] [address]Dr. Donna Malone BLOOD GASES BTYon 11-14-2022 02 MODE ROOM AIR Normal [facility] Comment on above: Performed By: #### A BG ####[facility] Zzghcoiyyx4764[address] [place], [place] [address]Dr. Donna Malone ALLENS TEST Positive Normal [facility] Comment on above: Performed By: #### A BG ####[facility] Hviyvqttre14[address] [place], [place] [address]Dr. Donna Malone Base excess Calc (Bld) [Moles/Vol] 1.1 mmol/L Normal -2.0-2.0 [facility] Comment on above: Performed By: #### A BG ####[facility] Txfzeruzwj5359[address] [place], [place] [address]Dr. Donna Malone BIPAP PRESSURE Normal [facility] Comment on above: Performed By: #### A BG ####[facility] Vqirpugzzl[address] [place], [place] [address]Dr. Donna Malone CPAP Normal [facility] Comment on above: Performed By: #### A BG ####[facility] Myggmydlue[address] [place], [place] [address]Dr. Donna Malone FIO2 Normal [facility] Comment on above: Performed By: #### A BG ####[facility] Bkuhozsifq4468[address] [place], [place] [address]Dr. Donna Malone HCO3 (Bld) [Moles/Vol] 26.0 mmol/L Normal 22.0-26.0 [facility] Comment on above: Performed By: #### A BG ####[facility] Tgjvgpvjvy81[address] [place], [place] [address]Dr. Donna Malone LPM [facility] Comment on above: Performed By: #### A BG ####[facility] Hfgxnulrgl59[address] [place], [place] [address]Dr. Donna Malone MINUTE VOLUME Normal [facility] Comment on above: Performed By: #### A BG ####[facility] Hygoziqdaw2506[address] [place], [place] [address]Dr. Donna Malone Oxygen (Bld) [Partial pressure] 62.0 mm[Hg] Critically low 80.0-100.0 [facility] Comment on above: Performed By: #### A BG ####[facility] Tsaxqxdjxb6267[address] [place], [place] [address]Dr. Donna Malone Oxygen saturation in Blood 91.9 % Critically low 95.0-100.0 [facility] Comment on above: Performed By: #### A BG ####[facility] Qvuxwjersk68[address] [place], [place] [address]Dr. Donna Malone PCO2 42.8 mmHg Normal 35.0-45.0 [facility] Comment on above: Performed By: #### A BG ####[facility] Melqijcdgo[address] [place], [place] [address]Dr. Donna Malone PEEP [facility] Comment on above: Performed By: #### A BG ####[facility] Fhkoftmozh70[address] [place], [place] [address]Dr. Donna Malone pH (Bld) 7.392 [pH] Normal 7.350-7.45 0 [facility] Comment on above: Performed By: #### A BG ####[facility] Iekdsxhebd16[address] [place] [address]Dr. Donna Malone PIP Normal [facility] Comment on above: Performed By: #### A BG ####[facility] Cnyrwmyjrf79[address] [place], [place] [address]Dr. Donna Malone PS Normal [facility] Comment on above: Performed By: #### A BG ####[facility] Tjugcnqzhn928[address] [place], [place] [address]Dr. Donna Malone PUNCTURE SITE LR [facility] Comment on above: Performed By: #### A BG ####[facility] Weyifjeyre6[address] [place], [place] [address]Dr. Donna Malone RATE Finley [facility] Comment on above: Performed By: #### A BG ####[facility] Lfgofhwkye15[address] [place], [place] [address]Dr. Donna Malone VENT MODE [facility] Comment on above: Performed By: #### A BG ####[facility] Owkhxrsanr9225[address] [place], [place] [address]Dr. Donna Malone VT [facility] Comment on above: Performed By: #### A BG ####[facility] Srfuxrfxow5917[address] [place], [place] [address]Dr. Donna Malone BNPon 11-14-2022 Natriuretic peptide B (Bld) [Mass/Vol] 148.0 pg/mL Normal <=900.0 [facility] Comment on above: Performed By: #### B MATCHING MACHINE OPERATOR, CMP, HSTROPN ####[facility] Zjciooanjz7[address] [place], [place] [address]Dr. Donna Malone CBC AUTO DIFFon 11-14-2022 BASO # 0.0 103/ul Normal 0.0-0.1 [facility] Comment on above: Performed By: #### C BC ####[facility] Sbkhbykjsx[address] [place], [place] [address]Dr. Donna Malone Basophils/100 WBC (Bld) 0.5 % Normal 0.2-2.0 [facility] Comment on above: Performed By: #### C BC ####[facility] Oqgrnlojys9[address] [place] [address]Dr. Donna Malone EO # 0.1 103/ul Normal 0.0-0.7 [facility] Comment on above: Performed By: #### C BC ####[facility] Zmjlvvacqp5[address] [place], [place] [address]Dr. Donna Malone Eosinophils/100 WBC (Bld) 0.6 % Critically low 0.9-7.0 [facility] Comment on above: Performed By: #### C BC ####[facility] Cbydpichjx01[address] [place], [place] [address]Dr. Donna Malone Erythrocyte distribution width (RBC) [Ratio] 14.8 % Normal 11.0-15.0 [facility] Comment on above: Performed By: #### C BC ####[facility] Flimcavlvq7176[address] [place], [place] [address]Dr. Donna Malone Hematocrit (Bld) [Volume fraction] 41.9 % Critically low 42.0-54.0 [facility] Comment on above: Performed By: #### C BC ####[facility] Verzssjpuu94[address] [place], [place] [address]Dr. Donna Malone Hemoglobin (Bld) [Mass/Vol] 13.6 g/dL Critically low 14.0-18.0 [facility] Comment on above: Performed By: #### C BC ####[facility] Cupxkbuhje46[address] [place], [place] [address]Dr. Donna Faisal IG # 0.01 10e3/ul Normal 0.00-0.03 [facility] Comment on above: Performed By: #### C BC ####[facility] Akhzghxkok049[address] [place], [place] [address]Dr. Donna Malone IG % 0.1 % Normal 0.0-0.5 [facility] Comment on above: Performed By: #### C BC ####[facility] Wicggyxhud64[address] [place], [place] [address]Dr. Rubyyvan Malone LYMPH # 1.7 103/ul Normal 1.2-3.8 [facility] Comment on above: Performed By: #### C BC ####[facility] Vvymsdqejd668[address] [place] [id number]. Donna Faisal Lymphocytes/100 WBC (Bld) 21.2 % Normal 20.5-60.0 [facility] Comment on above: Performed By: #### C BC ####[facility] Afhuxvijpg[address] [place] [address]Dr. Donna Faisal MANUAL DIFF REQ NO Normal [facility] Comment on above: Performed By: #### C BC ####[facility] Ficirpfkap9434 [place] [address]Dr. Donna Faisal MCH (RBC) [Entitic mass] 29.2 pg Normal 25.9-34.0 [facility] Comment on above: Performed By: #### C BC ####[facility] Ihtpyuermn[address] [place], [place] [address]Dr. Donna Faisal MCHC (RBC) [Mass/Vol] 32.5 g/dL Normal 29.9-35.2 [facility] Comment on above: Performed By: #### C BC ####[facility] Mpnlwaxzne4[address] [place] [address]Dr. Rubyyvan Malone MCV (RBC) [Entitic vol] 90.1 fL Normal 80.0-94.0 [facility] Comment on above: Performed By: #### C BC ####[facility] Krinmqagnj64[address] [place], [place] [address]Dr. Donna Malone MONO # 0.4 103/ul Normal 0.3-0.8 [facility] Comment on above: Performed By: #### C BC ####[facility] Mkparibsou225[address] [place] [address]Dr. Rubyyvan Malone Monocytes/100 WBC (Bld) 5.5 % Normal 1.7-12.0 [facility] Comment on above: Performed By: #### C BC ####[facility] Brvngliyyc08[address] [place], [place] [address]Dr. Donna Malone NEUT # 5.7 103/ul Normal 1.4-6.5 [facility] Comment on above: Performed By: #### C BC ####[facility] Eofhiwanso[address] [place] [id number]. Donna Malone Neutrophils/100 WBC (Bld) 72.1 % Normal 43.0-75.0 [facility] Comment on above: Performed By: #### C BC ####[facility] Avhbxwlzdq0186 [place] [phone]. Donna Malone Platelet mean volume (Bld) [Entitic vol] 11.5 fL Normal 9.5-13.5 [facility] Comment on above: Performed By: #### C BC ####[facility] Hcbztchjbe6465 [place] [phone]. Donna Malone PLT 193 103/ul Normal 150-450 [facility] Comment on above: Performed By: #### C BC ####[facility] Ehwkjvmobs18[address] [place] [address]Dr. Donna Malone RBC 4.65 106/ul Critically low 4.70-6.10 [facility] Comment on above: Performed By: #### C BC ####[facility] Kcmpcpknmo[address] [place], [place] [address]Dr. Donna Malone WBC 7.9 103/ul Normal 4.0-11.0 [facility] Comment on above: Performed By: #### C BC ####[facility] Uhcspipfor54[address] [place], [place] [address]Dr. Donna Malone CT HEAD WO CONon 11-14-2022 CT HEAD WO CON Normal [facility] CULTURE BLOODon 11-14-2022 Microscopic examination of blood, culture Culture Observations: NO GROWTH AT 5 DAYS. Normal [facility] Comment on above: Performed By: #### B LDCX2 ####[facility] Rgrnbxdnja88[address] [place] [id number]. Donna Malone Microscopic examination of blood, culture Culture Observations: NO GROWTH AT 5 DAYS. Normal [facility] Comment on above: Performed By: #### B LDCX1 ####[facility] Rkdezepkmq4[address] [place] [address]Dr. Donna Faisal Covid-19 PCR (CVDTB)on SARS-CoV-2 (COVID-19) RNA JOSÉ MIGUEL+probe Ql (Unsp spec) Not detected Normal NOT DETECTED [facility] Comment on above: Result Comment: When [...] for this test is supported by the [place] of [employer] and Human Service's declaration that [...] be used). Performed By: #### C VDTB ####[facility] Nxrgcvbnim80[address] [place], [place] [address]Dr. yvan Malone DRUG SCREEN RAPID (URINE)on 11-14-2022 AMP Negative Normal NEGATIVE [facility] Comment on above: Performed By: #### D SHARONA ERUR ####[facility] Atcjeacqdo18[address] [place], [place] [address]Dr. Donna Malone BAR Negative Normal NEGATIVE [facility] Comment on above: Performed By: #### D SHARONA ERUR ####[facility] Rtqvhbwopa022[address] [place] [address]Dr. Donna Malone BUP Negative Normal NEGATIVE [facility] Comment on above: Performed By: #### D SHARONA ERUR ####[facility] Irjptttnjl5[address] [place] [address]Dr. Donna Malone BZO Negative Normal NEGATIVE [facility] Comment on above: Performed By: #### D SHARONA ERUR ####[facility] Emefqoksrw1287 [place] [address]Dr. Donna Malone EVONNE Negative Normal NEGATIVE [facility] Comment on above: Performed By: #### D RUGRPD, ERUR ####[facility] Zrkdrfpvjm7322 [place] [address]Dr. Donna Malone CUT-OFFS SEE BELOW Normal [facility] Comment on above: Result Comment: AMP [...] ng/mL Performed By: #### Calvin TABOR, ERUR ####[facility] Ihdkurfgpt11[address] [place], [place] [address]Dr. Donna Malone DRUG CUT HEADER DRUG CLASS TEST SYST EM CUT-OFF CONCENTRATIONS ARE FOLLOWS: Normal [facility] Comment on above: Performed By: #### Calvin TABOR, ERUR ####[facility] Jzzkvpkfbj[address] [place], [place] [address]Dr. Donna Malone mAMP Negative Normal NEGATIVE [facility] Comment on above: Performed By: #### Calvin TABOR, ERUR ####[facility] Qsvktsnanw68[address] [place], [place] [address]Dr. Donna Malone MTD Negative Normal NEGATIVE [facility] Comment on above: Performed By: #### Calvin TABOR, ERUR ####[facility] Mmwjnectdl[address] [place], [place] [address]Dr. Donna Malone OPI Negative Normal NEGATIVE [facility] Comment on above: Performed By: #### Calvin TABOR, ERUR ####[facility] Hobxluefry96[address] [place] [address]Dr. Donna Malone OXY Negative Normal NEGATIVE [facility] Comment on above: Performed By: #### Calvin TABOR, ERUR ####[facility] Mhunwijkom[address] [place] [address]Dr. Donna Malone PCP Negative Normal NEGATIVE [facility] Comment on above: Performed By: #### Calvin TABOR, ERUR ####[facility] Adcvbiqklp3564 [place] [address]Dr. Donna Malone PPX Negative Normal NEGATIVE [facility] Comment on above: Performed By: #### Calvin TABOR, ERUR ####[facility] Gaiiaxuaga33[address] [place] [address]Dr. Donna Malone TCA Positive Abnormal NEGATIVE [facility] Comment on above: Performed By: #### Calvin TABOR, ERUR ####[facility] Ojixoxutoy[address] [place] [address]Dr. Donna Malone THC Negative Normal NEGATIVE [facility] Comment on above: Performed By: #### Calvin TABOR, ERUR ####[facility] Geblcocdcs32[address] [place] [address]Dr. Donna Malone ER URINE PROFILEon 3 Bilirubin Ql (U) MODERATE Abnormal NEGATIVE [facility] Comment on above: Performed By: #### Calvin TABOR, ERUR ####[facility] Kqfeyclbpa[address] [place], [place] [address]Dr. Donna Malone Clarity (U) CLEAR Normal CLEAR [facility] Comment on above: Performed By: #### Calvin TABOR, ERUR ####[facility] Wtueluycsm39[address] [place] [address]Dr. Donna Malone Color (U) DK. YELLOW Normal YELLOW [facility] Comment on above: Performed By: #### Calvin TABOR, ERUR ####[facility] Gklxiuawgj29[address] [place] [address]Dr. Donna JARRELLAHD A micrscopic examina tion will be performed if indicated. Normal [facility] Comment on above: Performed By: #### Calvin TABOR, ERUR ####[facility] Cjnfcsnvee6634 [place] [address]Dr. Donna Malone Glucose Ql (U) Negative Normal NEGATIVE [facility] Comment on above: Performed By: #### Calvin TABOR, ERUR ####[facility] Llbzrbbhmy3818 [place] [address]Dr. Donna Malone Hemoglobin Ql (U) Negative Normal NEGATIVE [facility] Comment on above: Performed By: #### Calvin TABOR, ERUR ####[facility] Dyamkopejo[address] [place] [address]Dr. Donna Malone Ketones Ql (U) 40 mg/dl Abnormal NEGATIVE [facility] Comment on above: Performed By: #### Calvin TABOR, ERUR ####[facility] Toxpogbxpr[address] [place], [place] [address]Dr. Donna Malone LEUKOCYTES Negative Normal NEGATIVE [facility] Comment on above: Performed By: #### Calvin TABOR, ERUR ####[facility] Ijxinajpxn[address] [place], [place] [address]Dr. Donna Malone Nitrite Ql (U) Negative Normal NEGATIVE [facility] Comment on above: Performed By: #### Calvin TABOR ERUR ####[facility] Sbdhthpuyd[address] [place], [place] [address]Dr. Donna Malone pH (U) 6.0 [pH] Normal 5-9 [facility] Comment on above: Performed By: #### Calvin TABOR, ERUR ####[facility] Knzeseiqmn[address] [place], [place] [address]Dr. Donna Malone SPEC GRAVITY 1.030 Abnormal 1.005-<=1. 025 [facility] Comment on above: Performed By: #### Calvin TABOR ERUR ####[facility] Edhtdtxafo[address] [place], [place] [address]Dr. Donna Malone UA PROTEIN TRACE Normal NEGATIVE/ TRACE [facility] Comment on above: Performed By: #### Calvin TABOR ERUR ####[facility] K[address]pdpbdnf[address] [place], [place] [address]Dr. Donna Malone UR MICRO IND NOT INDICATED Normal [facility] Comment on above: Performed By: #### Calvin TABOR, ERUR ####[facility] Xlmhqaxomn15[address] [place], [place] [address]Dr. Donna Malone Urobilinogen Qn (U) 1.0 {Jermain'U}/dL Normal 0.2 - 1. 0 [facility] Comment on above: Performed By: #### D SHARONA, ERUR ####[facility] Pkwnmkkmkv[address] [place] [address]Dr. Donna Malone LACTATE/LACTIC ACIDon 2022 Lactate [Moles/Vol] 1.6 mmol/L Normal 0.4-1.9 [facility] Comment on above: Performed By: #### L ACT ####[facility] Bxbvkptgqs28[address] [place] [address]Dr. Donna Malone PROF 14(COMP METB)on 023 Albumin [Mass/Vol] 3.4 g/dL Normal 3.4-5.0 [facility] Comment on above: Performed By: #### B MATCHING MACHINE OPERATOR, CMP, HSTROPN ####[facility] Tkynjkmdnf8[address] [place] [address]Dr. Donna Malone Albumin/Globulin [Mass ratio] 1.0 {ratio} Normal [facility] Comment on above: Performed By: #### B MATCHING MACHINE OPERATOR, CMP, HSTROPN ####[facility] Yllzzmddin35[address] [place] [address]Dr. Donna Malone ALP [Catalytic activity/Vol] 48 U/L Normal 46-116 [facility] Comment on above: Performed By: #### B MATCHING MACHINE OPERATOR, CMP, HSTROPN ####[facility] [facility] Nt[address]kaqf[address] [place] [address]Dr. Donna Malone ALT [Catalytic activity/Vol] 13 U/L Critically low 16-63 [facility] Comment on above: Performed By: #### B MATCHING MACHINE OPERATOR, CMP, HSTROPN ####[facility] Hfdablelum[address] [place] [address]Dr. Donna Malone Anion gap [Moles/Vol] 13.2 mmol/L Normal [facility] Comment on above: Performed By: #### B MATCHING MACHINE OPERATOR, CMP, HSTROPN ####[facility] Uisgqeennh[address] [place] [address]Dr. Donna Malone AST [Catalytic activity/Vol] 13 U/L Critically low 15-37 [facility] Comment on above: Performed By: #### B MATCHING MACHINE OPERATOR, CMP, HSTROPN ####[facility] Chmszrscgv[address] [place] [address]Dr. Donna Malone Bilirubin [Mass/Vol] 0.4 mg/dL Normal 0.2-1.0 The [facility] Comment on above: Performed By: #### B MATCHING MACHINE OPERATOR, CMP, HSTROPN ####[facility] Gqpobbvsrw[address] [place] [address]Dr. Donna Malone Calcium [Mass/Vol] 9.2 mg/dL Normal 8.5-10.1 The [facility] Comment on above: Performed By: #### B MATCHING MACHINE OPERATOR, CMP, HSTROPN ####[facility] Lrxdyijsfy[address] [place] [address]Dr. Donna Malone Chloride [Moles/Vol] 108 mmol/L Critically high 98-107 The [facility] Comment on above: Performed By: #### B MATCHING MACHINE OPERATOR, CMP, HSTROPN ####[facility] Eualofppws[address] [place] [address]Dr. Donna Malone CO2 [Moles/Vol] 27.0 mmol/L Normal 21.0-32.0 The [facility] Comment on above: Performed By: #### B MATCHING MACHINE OPERATOR, CMP, HSTROPN ####[facility] Ejkrzxnrkh[address] [place] [address]Dr. Donna Malone Creatinine [Mass/Vol] 1.14 mg/dL Normal 0.70-1.30 The [facility] Comment on above: Performed By: #### B MATCHING MACHINE OPERATOR, CMP, HSTROPN ####[facility] Jqtovfsbxk[address] [place] [address]Dr. Donna Malone EGFR-AF SAMOAN >60 Normal >=60 The [facility] Comment on above: Performed By: #### B MATCHING MACHINE OPERATOR, CMP, HSTROPN ####[facility] Ulnohwqvet[address] [place] [address]Dr. Donna Malone EGFR-NON AF SAMOAN >60 Normal >=60 The [facility] Comment on above: Performed By: #### B MATCHING MACHINE OPERATOR, CMP, HSTROPN ####[facility] Skegulbvwr[address] [place] [address]Dr. Donna Malone Globulin (S) [Mass/Vol] 3.5 g/dL Normal [facility] Comment on above: Performed By: #### B MATCHING MACHINE OPERATOR, CMP, HSTROPN ####[facility] Zlmaxqtwfu[address] [place] [address]Dr. Donna Malone Glucose [Mass/Vol] 126 mg/dL Critically high 74-106 T [facility] Comment on above: Performed By: #### B MATCHING MACHINE OPERATOR, CMP, HSTROPN ####[facility] Mantannzak[address] [place], [place] [address]Dr. Donna Malone Potassium [Moles/Vol] 4.2 mmol/L Normal 3.5-5.1 The [facility] Comment on above: Performed By: #### B MATCHING MACHINE OPERATOR, CMP, HSTROPN ####[facility] Smfzuhfezi[address] [place], [place] [address]Dr. Donna Malone Protein [Mass/Vol] 6.9 g/dL Normal 6.4-8.2 The [facility] Comment on above: Performed By: #### B MATCHING MACHINE OPERATOR, CMP, HSTROPN ####[facility] Jmlbnsnhwc[address] [place], [place] [address]Dr. Donna Malone Sodium [Moles/Vol] 144 mmol/L Normal 136-145 The [facility] Comment on above: Performed By: #### B MATCHING MACHINE OPERATOR, CMP, HSTROPN ####[facility] Jqikkzujsb[address] [place], [place] [address]Dr. Donna Malone Urea nitrogen [Mass/Vol] 17.0 mg/dL Normal 7.0-18.0 The [facility] Comment on above: Performed By: #### B MATCHING MACHINE OPERATOR, CMP, HSTROPN ####[facility] Ojlnkqhyug65[address] [place], [place] [address]Dr. Donna Malone Urea nitrogen/Creatinine [Mass ratio] 14.9 mg/mg Normal The [facility] Comment on above: Performed By: #### B MATCHING MACHINE OPERATOR, CMP, HSTROPN ####[facility] Duevermcys[address] [place] [address]Dr. Donna Malone TROPONIN, HIGH SENSITIVITYon 11-14-2022 HSTROP 11.2 pg/mL Normal 4.0-76.1 [facility] Comment on above: Result Comment: CUT- OFF POINTS HAVE BEEN ESTABLISHED BASED ON THE FOURTH UNIVERSAL DEFINITIONS OF MYOCARDIALINFARCTION. THE UPPER REFERENCE LIMIT (URL) OF TROPONIN, DEFINED THE 99TH PERCENTILE OFcTnI DISTRIBUTION IN A REFERENCE POPULATION, HAS BEEN CONFIRMED THE DECISION THRESHOLDFOR IA DIAGNOSIS. Performed By: #### B MATCHING MACHINE OPERATOR, CMP, HSTROPN ####[facility] Gaofhingri[address] [place], [place] [address]Dr. Donna Malone XR CHEST 1 Von 11-14-2022 XR CHEST 1 V Normal [facility] ER URINE PROFILEon 3 Bilirubin Ql (U) Negative Normal NEGATIVE [facility] Comment on above: Performed By: #### E RUR ####[facility] Jdqctjctzs924[address] [place], [place] [address]Dr. Donna Malone Clarity (U) CLEAR Normal CLEAR [facility] Comment on above: Performed By: #### E RUR ####[facility] Agciokxsbd[address] [place], [place] [address]Dr. Donna Malone Color (U) YELLOW Normal YELLOW The [facility] Comment on above: Performed By: #### E RUR ####[facility] Gfdgziayjy9[address] [place], [place] [address]Dr. Donna Malone ERUAHD A micrscopic examina tion will be performed if indicated. Normal The [facility] Comment on above: Performed By: #### E RUR ####[facility] Gtrtfosoyx40[address] [place], [place] [address]Dr. Donna Malone Glucose Ql (U) 250 mg/dl Abnormal NEGATIVE The [facility] Comment on above: Performed By: #### E RUR ####[facility] Dzsercqxny060[address] [place], [place] [address]Dr. Donna Malone Hemoglobin Ql (U) TRACE-INTACT Abnormal NEGATIVE [facility] Comment on above: Performed By: #### E RUR ####[facility] Gknwibnmoe[address] [place] [address]Dr. Donna Malone Ketones Ql (U) Negative Normal NEGATIVE The [facility] Comment on above: Performed By: #### E RUR ####[facility] Sodwisssco27[address] [place] [address]Dr. Donna Malone LEUKOCYTES Negative Normal NEGATIVE The [facility] Comment on above: Performed By: #### E RUR ####[facility] Jqgmndkxxs4525[address] [place], [place] [address]Dr. Donna Malone Nitrite Ql (U) Negative Normal NEGATIVE The [facility] Comment on above: Performed By: #### E RUR ####[facility] Jikslranya104[address] [place], [place] [address]Dr. Donna Malone pH (U) 5.5 [pH] Normal 5-9 The [facility] Comment on above: Performed By: #### E RUR ####[facility] Ikdrfccdyh4[address] [place], [place] [address]Dr. Donna Malone SPEC GRAVITY 1.025 Normal 1.005-<=1. 025 The [facility] Comment on above: Performed By: #### E RUR ####[facility] Cktvriwlpl19[address] [place], [place] [address]Dr. Donna Malone UA PROTEIN Negative Normal NEGATIVE/ TRACE The [facility] Comment on above: Performed By: #### E RUR ####[facility] Wxvhhdbrrb[address] [place], [place] [address]Dr. Donna Malone UR MICRO IND NOT INDICATED Normal The [facility] Comment on above: Performed By: #### E RUR ####[facility] Gtahhhnhxq[address] [place], [place] [address]Dr. Donna Malone Urobilinogen Qn (U) 0.2 {Jermain'U}/dL Normal 0.2 - 1. 0 [facility] Comment on above: Performed By: #### E RUR ####[facility] Uwbivogzzn8[address] [place], [place] [address]Dr. Donna Malone CBC AUTO DIFFon 10-26-2022 BASO # 0.0 103/ul Normal 0.0-0.1 The [facility] Comment on above: Performed By: #### C BC ####[facility] Forcwfxbrr3[address] [place], [place] [address]Dr. Donna Malone Basophils/100 WBC (Bld) 0.4 % Normal 0.2-2.0 The [facility] Comment on above: Performed By: #### C BC ####[facility] Tcwmmnawar[address] [place], [place] [address]Dr. Donna Malone EO # 0.0 103/ul Normal 0.0-0.7 The [facility] Comment on above: Performed By: #### C BC ####[facility] Ovfffqexpo406[address] [place], [place] [address]Dr. Donna Malone Eosinophils/100 WBC (Bld) 0.0 % Critically low 0.9-7.0 The [facility] Comment on above: Performed By: #### C BC ####[facility] Flnklvnryt[address] [place], [place] [address]Dr. Donna Malone Erythrocyte distribution width (RBC) [Ratio] 14.5 % Normal 11.0-15.0 The [facility] Comment on above: Performed By: #### C BC ####[facility] Yfngdioktg008[address] [place], [place] [address]Dr. Donna Malone Hematocrit (Bld) [Volume fraction] 41.2 % Critically low 42.0-54.0 The [facility] Comment on above: Performed By: #### C BC ####[facility] Reqzgasjsl[address] [place], [place] [address]Dr. Donna Malone Hemoglobin (Bld) [Mass/Vol] 13.7 g/dL Critically low 14.0-18.0 The [facility] Comment on above: Performed By: #### C BC ####[facility] Kvnkyrgbme38[address] [place], [place] [address]Dr. Donna Malone IG # 0.02 10e3/ul Normal 0.00-0.03 The [facility] Comment on above: Performed By: #### C BC ####[facility] Nmijpkiiyi64[address] [place], [place] [address]Dr. Donna Malone IG % 0.2 % Normal 0.0-0.5 [facility] Comment on above: Performed By: #### C BC ####[facility] Hqxaheivuc4[address] [place] [address]DrElizabeht Malone LYMPH # 1.2 103/ul Normal 1.2-3.8 [facility] Comment on above: Performed By: #### C BC ####[facility] Nvfszzqybz02[address] [place] [address]DrElizabeth Malone Lymphocytes/100 WBC (Bld) 14.4 % Critically low 20.5-60.0 [facility] Comment on above: Performed By: #### C BC ####[facility] Kgvwmnsuci[address] [place], [place] [address]DrElizabeth Malone MANUAL DIFF REQ NO Normal [facility] Comment on above: Performed By: #### C BC ####[facility] Uqgpzoibih8[address] [place], [place] [address]DrElizabeth Malone MCH (RBC) [Entitic mass] 29.4 pg Normal 25.9-34.0 [facility] Comment on above: Performed By: #### C BC ####[facility] Syxyixmbgx[address] [place], [place] [address]DrElizabeth Malone MCHC (RBC) [Mass/Vol] 33.3 g/dL Normal 29.9-35.2 The [facility] Comment on above: Performed By: #### C BC ####[facility] Ufhuhqzzkz98[address] [place], [place] [address]DrElizabeth Malone MCV (RBC) [Entitic vol] 88.4 fL Normal 80.0-94.0 The [facility] Comment on above: Performed By: #### C BC ####[facility] Wryggopdzy5[address] [place], [place] [address]DrElizabeth Malone MONO # 0.2 103/ul Critically low 0.3-0.8 [facility] Comment on above: Performed By: #### C BC ####[facility] Elkaelqwkc[address] [place], [place] [address]DrElizabeth Malone Monocytes/100 WBC (Bld) 2.5 % Normal 1.7-12.0 The [facility] Comment on above: Performed By: #### C BC ####[facility] Ndpqwxvtse12[address] [place] [address]Dr. Donna Malone NEUT # 6.9 103/ul Critically high 1.4-6.5 [facility] Comment on above: Performed By: #### C BC ####[facility] Pfzsrsbkwt2875 [place] [address]Dr. Donna Malone Neutrophils/100 WBC (Bld) 82.5 % Critically high 43.0-75.0 The [facility] Comment on above: Performed By: #### C BC ####[facility] Mankmcbsfr90[address] [place], [place] [address]Dr. Donna Malone Platelet mean volume (Bld) [Entitic vol] 11.3 fL Normal 9.5-13.5 The [facility] Comment on above: Performed By: #### C BC ####[facility] Vgmbwxumxn[address] [place], [place] [address]Dr. Donna Malone PLT 241 103/ul Normal 150-450 The [facility] Comment on above: Performed By: #### C BC ####[facility] Jcgcsbjrer04[address] [place], [place] [address]Dr. Donna Malone RBC 4.66 106/ul Critically low 4.70-6.10 The [facility] Comment on above: Performed By: #### C BC ####[facility] Yfsocwojyf10[address] [place], [place] [address]Dr. Donna Malone WBC 8.4 103/ul Normal 4.0-11.0 The [facility] Comment on above: Performed By: #### C BC ####[facility] [address]mt[address]ntxr[address] [place], [place] [id number]. Donna Faisal CRPon 10-26-2022 CRP [Mass/Vol] mg/L Normal <=1.0 The [facility] Comment on above: Performed By: #### C RP, BMP ####[facility] Xplbnpotvf[address] [place], [place] [address]Dr. Rubyyvan Faisal CT LSPINE WO CONon 3 CT LSPINE WO CON Normal The [facility] PROF CHEM 8 (BAS METB)on Anion gap [Moles/Vol] 11.9 mmol/L Normal [facility] Comment on above: Performed By: #### C RP, BMP ####[facility] Fqbicuilnc6[address] [place] [address]Dr. Donna Malone Calcium [Mass/Vol] 9.1 mg/dL Normal 8.5-10.1 [facility] Comment on above: Performed By: #### C RP, BMP ####[facility] Agegrmmchy38[address] [place] [address]Dr. Donna Malone Chloride [Moles/Vol] 104 mmol/L Normal 98-107 [facility] Comment on above: Performed By: #### C RP, BMP ####[facility] Wofanxuskz5[address] [place], [place] [address]Dr. Donna Malone CO2 [Moles/Vol] 26.3 mmol/L Normal 21.0-32.0 [facility] Comment on above: Performed By: #### C RP, BMP ####[facility] Ceplntwaxa93[address] [place], [place] [address]Dr. Donna Malone Creatinine [Mass/Vol] 0.99 mg/dL Normal 0.70-1.30 [facility] Comment on above: Performed By: #### C RP, BMP ####[facility] Xezieprjus187[address] [place], [place] [address]Dr. Rubyyvan Faisal EGFR-AF SAMOAN >60 Normal >=60 [facility] Comment on above: Performed By: #### C RP, BMP ####[facility] Xiyfrbvsyx7[address] [place] [address]Dr. Donna Malone EGFR-NON AF SAMOAN >60 Normal >=60 [facility] Comment on above: Performed By: #### C RP, BMP ####[facility] Ajbeisvold[address] [place], [place] [address]Dr. Rubyyvan Malone Glucose [Mass/Vol] 152 mg/dL Critically high 74-106 [facility] Comment on above: Performed By: #### C RP, BMP ####[facility] Lsgcgzbyiu14[address] [place] [id number]. Donna Malone Potassium [Moles/Vol] 4.2 mmol/L Normal 3.5-5.1 The [facility] Comment on above: Performed By: #### C RP, BMP ####[facility] Kuihwolbgl05[address] [place] [address]Dr. Donna Faisal Sodium [Moles/Vol] 138 mmol/L Normal 136-145 The [facility] Comment on above: Performed By: #### C RP, BMP ####[facility] Xbaqsuacni8[address] [place] [address]Dr. Donna Faisal Urea nitrogen [Mass/Vol] 12.0 mg/dL Normal 7.0-18.0 The [facility] Comment on above: Performed By: #### C RP, BMP ####[facility] Zjufgegptd91[address] [place], [place] [address]Dr. Donna Malone Urea nitrogen/Creatinine [Mass ratio] 12.1 mg/mg Normal The [facility] Comment on above: Performed By: #### C RP, BMP ####[facility] Bxolrnfvqc36[address] [place], [place] [address]Dr. Donna Faisal SED RATE WESTERGRENon 2022 SED RATE 57 mm/hr Critically high <=20 The [facility] Comment on above: Performed By: #### S EDR ####[facility] Uudrkjxrsj[address] [place], [place] [address]Dr. Donna Faisal CBC AUTO DIFFon 10-25-2022 BASO # 0.0 103/ul Normal 0.0-0.1 The [facility] Comment on above: Performed By: #### C BC ####[facility] Yjkesmkytl[address] [place], [place] [address]Dr. Rubyyvan Malone Basophils/100 WBC (Bld) 0.4 % Normal 0.2-2.0 The [facility] Comment on above: Performed By: #### C BC ####[facility] Uyqmdhsjch[address] [place], [place] [address]Dr. Donna Malone EO # 0.0 103/ul Normal 0.0-0.7 [facility] Comment on above: Performed By: #### C BC ####[facility] Kxgkhmmgfl30[address] [place] [address]Dr. Donna Malone Eosinophils/100 WBC (Bld) 0.0 % Critically low 0.9-7.0 [facility] Comment on above: Performed By: #### C BC ####[facility] Pnapvmzyoc6[address] [place], [place] [address]Dr. Donna Malone Erythrocyte distribution width (RBC) [Ratio] 14.5 % Normal 11.0-15.0 [facility] Comment on above: Performed By: #### C BC ####[facility] Pnzqtmycwm93[address] [place], [place] [address]Dr. Donna Malone Hematocrit (Bld) [Volume fraction] 43.8 % Normal 42.0-54.0 The [facility] Comment on above: Performed By: #### C BC ####[facility] Pqdgoiisgh0039[address] [place], [place] [address]Dr. Donna Malone Hemoglobin (Bld) [Mass/Vol] 14.2 g/dL Normal 14.0-18.0 The [facility] Comment on above: Performed By: #### C BC ####[facility] Xejnftuiqz7[address] [place], [place] [address]Dr. Donna Malone IG # 0.01 10e3/ul Normal 0.00-0.03 The [facility] Comment on above: Performed By: #### C BC ####[facility] Kcyqjupkvt22[address] [place], [place] [address]Dr. Donna Malone IG % 0.1 % Normal 0.0-0.5 The [facility] Comment on above: Performed By: #### C BC ####[facility] Khwxkgfdfm[address] [place], [place] [address]Dr. Donna Malone LYMPH # 1.4 103/ul Normal 1.2-3.8 The [facility] Comment on above: Performed By: #### C BC ####[facility] Ckardxufei38[address] [place], [place] [address]Dr. Donna Malone Lymphocytes/100 WBC (Bld) 17.1 % Critically low 20.5-60.0 [facility] Comment on above: Performed By: #### C BC ####[facility] Ympxbajzdo[address] [place] [address]DrElizabeth Malone MANUAL DIFF REQ NO Normal [facility] Comment on above: Performed By: #### C BC ####[facility] Kwicruwubv00[address] [place] [address]Dr. Donna Malone MCH (RBC) [Entitic mass] 29.1 pg Normal 25.9-34.0 [facility] Comment on above: Performed By: #### C BC ####[facility] Pyzeshqmiu07[address] [place] [address]Dr. Donna Malone MCHC (RBC) [Mass/Vol] 32.4 g/dL Normal 29.9-35.2 [facility] Comment on above: Performed By: #### C BC ####[facility] Mdqxlddkcc406[address] [place], [place] [address]Dr. Donna Malone MCV (RBC) [Entitic vol] 89.8 fL Normal 80.0-94.0 [facility] Comment on above: Performed By: #### C BC ####[facility] Aaltzqqbxu[address] [place], [place] [address]DrElizabeth Malone MONO # 0.3 103/ul Normal 0.3-0.8 [facility] Comment on above: Performed By: #### C BC ####[facility] Jcgwncsdwd94[address] [place], [place] [address]DrElizabeth Malone Monocytes/100 WBC (Bld) 4.1 % Normal 1.7-12.0 The [facility] Comment on above: Performed By: #### C BC ####[facility] Zvamtshtis95[address] [place], [place] [address]DrElizabeth Malone NEUT # 6.3 103/ul Normal 1.4-6.5 The [facility] Comment on above: Performed By: #### C BC ####[facility] Qrjsbdqrzf134[address] [place], [place] [address]DrElizabeth Malone Neutrophils/100 WBC (Bld) 78.3 % Critically high 43.0-75.0 [facility] Comment on above: Performed By: #### C BC ####[facility] Crsvtqhfqu1722 [place] [address]Dr. Rubyyvan Faisal Platelet mean volume (Bld) [Entitic vol] 11.3 fL Normal 9.5-13.5 [facility] Comment on above: Performed By: #### C BC ####[facility] Xdwrlhbhbi9[address] [place] [address]Dr. Rubyyvan Faisal PLT 271 103/ul Normal 150-450 [facility] Comment on above: Performed By: #### C BC ####[facility] Qwhuscgvkt9964[address] [place], [place] [address]Dr. Donna Malone RBC 4.88 106/ul Normal 4.70-6.10 [facility] Comment on above: Performed By: #### C BC ####[facility] Ixyjibeafx28[address] [place], [place] [address]Dr. Donna Malone WBC 8.0 103/ul Normal 4.0-11.0 [facility] Comment on above: Performed By: #### C BC ####[facility] Swvsdrbpiy9[address] [place], [place] [address]Dr. Donna Malone ER URINE PROFILEon 3 Bilirubin Ql (U) Negative Normal NEGATIVE [facility] Comment on above: Performed By: #### E RUR ####[facility] Bumqphnyww[address] [place], [place] [address]Dr. Donna Malone Clarity (U) CLEAR Normal CLEAR The [facility] Comment on above: Performed By: #### E RUR ####[facility] [address]fbjxsvcuy[address] [place], [place] [address]Dr. Donna Malone Color (U) YELLOW Normal YELLOW The [facility] Comment on above: Performed By: #### E RUR ####[facility] Rcqchembbj[address] [place], [place] [address]Dr. Donna Malone ERUAHD A micrscopic examina tion will be performed if indicated. Normal The [facility] Comment on above: Performed By: #### E RUR ####[facility] Gwojlwhhjb[address] [place] [address]Dr. Donna Malone Glucose Ql (U) 100 mg/dl Abnormal NEGATIVE The [facility] Comment on above: Performed By: #### E RUR ####[facility] Bpcgfkbloq[address] [place], [place] [address]Dr. Donna Malone Hemoglobin Ql (U) Negative Normal NEGATIVE The [facility] Comment on above: Performed By: #### E RUR ####[facility] Otsxbjtrvz[address] [place], [place] [address]Dr. Donna Malone Ketones Ql (U) TRACE Abnormal NEGATIVE The [facility] Comment on above: Performed By: #### E RUR ####[facility] Bdjbjoarhx[address] [place], [place] [address]Dr. Donna Malone LEUKOCYTES Negative Normal NEGATIVE The [facility] Comment on above: Performed By: #### E RUR ####[facility] Nrduhsbddk[address] [place], [place] [address]Dr. Donna Malone Nitrite Ql (U) Negative Normal NEGATIVE The [facility] Comment on above: Performed By: #### E RUR ####[facility] [address]fbubafj6[address] [place], [place] [address]Dr. Donna Malone pH (U) 6.0 [pH] Normal 5-9 [facility] Comment on above: Performed By: #### E RUR ####[facility] [facility] [address] [place], [place] [address]Dr. Donna Malone SPEC GRAVITY >=1.030 Abnormal 1.005-<=1. 025 [facility] Comment on above: Performed By: #### E RUR ####[facility] [address] [place], [place] [address]Dr. Donna Malone UA PROTEIN Negative Normal NEGATIVE/ TRACE [facility] Comment on above: Performed By: #### E RUR ####[facility] [address] [place], [place] [address]Dr. Donna Malone UR MICRO IND NOT INDICATED Normal [facility] Comment on above: Performed By: #### E RUR ####[facility] Ew[address] [place], [place] [address]Dr. Donna Malone Urobilinogen Qn (U) 0.2 {Jermain'U}/dL Normal 0.2 - 1. 0 [facility] Comment on above: Performed By: #### E RUR ####[facility] [address] [place] [address]Dr. Donna Malone PROF CHEM 8 (BAS METB)on Anion gap [Moles/Vol] 16.4 mmol/L Normal Th [facility] Comment on above: Performed By: #### B MP ####[facility] [address] [place] [address]Dr. Donna Malone Calcium [Mass/Vol] 9.4 mg/dL Normal 8.5-10.1 [facility] Comment on above: Performed By: #### B MP ####[facility] [address] [place] [address]Dr. Donna Malone Chloride [Moles/Vol] 103 mmol/L Normal 98-107 [facility] Comment on above: Performed By: #### B MP ####[facility] [address]ed[address]mxd[address] [place] [address]Dr. Donna Malone CO2 [Moles/Vol] 23.7 mmol/L Normal 21.0-32.0 [facility] Comment on above: Performed By: #### B MP ####[facility] Rx[address]wbez[address] [place] [address]Dr. Donna Malone Creatinine [Mass/Vol] 1.12 mg/dL Normal 0.70-1.30 [facility] Comment on above: Performed By: #### B MP ####[facility] [address] [place] [address]Dr. Donna Malone EGFR-AF SAMOAN >60 Normal >=60 [facility] Comment on above: Performed By: #### B MP ####[facility] [address] [place] [address]Dr. Donna Malone EGFR-NON AF SAMOAN >60 Normal >=60 [facility] Comment on above: Performed By: #### B MP ####[facility] [address] [place] [id number]. Donna Malone Glucose [Mass/Vol] 170 mg/dL Critically high 74-106 T [facility] Comment on above: Performed By: #### B MP ####[facility] [address] [place] [address]Dr. Donna Malone Potassium [Moles/Vol] 4.1 mmol/L Normal 3.5-5.1 [facility] Comment on above: Performed By: #### B MP ####[facility] [address] [place] [address]Dr. Donna Malone Sodium [Moles/Vol] 139 mmol/L Normal 136-145 [facility] Comment on above: Performed By: #### B MP ####[facility] [address] [place] [address]Dr. Donna Malone Urea nitrogen [Mass/Vol] 9.0 mg/dL Normal 7.0-18.0 [facility] Comment on above: Performed By: #### B MP ####[facility] [address] [place], [place] [address]Dr. Donna Malone Urea nitrogen/Creatinine [Mass ratio] 8.0 mg/mg Normal [facility] Comment on above: Performed By: #### B MP ####[facility] [address] [place] [address]Dr. Donna Malone ACETONE SERUMon 08-10-2022 ACETONE Negative Normal NEGATIVE [facility] Comment on above: Performed By: #### A CETON ####[facility] [address] [place] [address]Dr. Donna Malone CBC AUTO DIFFon 08-10-2022 BASO # 0.1 103/ul Normal 0.0-0.1 [facility] Comment on above: Performed By: #### C BC ####[facility] V[address] [place] [address]Dr. Donna Faisal Basophils/100 WBC (Bld) 0.7 % Normal 0.2-2.0 [facility] Comment on above: Performed By: #### C BC ####[facility] Wx[address]rdvqcy[address] [place] [id number]. Donna Malone EO # 0.2 103/ul Normal 0.0-0.7 [facility] Comment on above: Performed By: #### C BC ####[facility] Ch[address]fpfmsk[address] [place] [id number]. Donna Malone Eosinophils/100 WBC (Bld) 2.0 % Normal 0.9-7.0 [facility] Comment on above: Performed By: #### C BC ####[facility] A[address]jrq[address] [place] [address]Dr. Donna Malone Erythrocyte distribution width (RBC) [Ratio] 14.3 % Normal 11.0-15.0 [facility] Comment on above: Performed By: #### C BC ####[facility] [address] [place], [place] [address]Dr. Donna Malone Hematocrit (Bld) [Volume fraction] 37.3 % Critically low 42.0-54.0 [facility] Comment on above: Performed By: #### C BC ####[facility] [address] [place], [place] [address]Dr. Donna Malone Hemoglobin (Bld) [Mass/Vol] 12.1 g/dL Critically low 14.0-18.0 [facility] Comment on above: Performed By: #### C BC ####[facility] V[address] [place] [address]Dr. Donna Malone IG # 0.03 10e3/ul Normal 0.00-0.03 [facility] Comment on above: Performed By: #### C BC ####[facility] Vqlcbloxrq[address] [place] [address]Dr. Donna Malone IG % 0.4 % Normal 0.0-0.5 [facility] Comment on above: Performed By: #### C BC ####[facility] [address] [place], [place] [address]Dr. Donna Malone LYMPH # 1.3 103/ul Normal 1.2-3.8 [facility] Comment on above: Performed By: #### C BC ####[facility] T[address]cf[address]zb[address] [place] [id number]. Donna Malone Lymphocytes/100 WBC (Bld) 18.3 % Critically low 20.5-60.0 [facility] Comment on above: Performed By: #### C BC ####[facility] [address] [place] [id number]. Donna Malone MANUAL DIFF REQ NO Normal [facility] Comment on above: Performed By: #### C BC ####[facility] [address]yv[address]kxd[address] [place] [id number]. Donna Malone MCH (RBC) [Entitic mass] 30.1 pg Normal 25.9-34.0 [facility] Comment on above: Performed By: #### C BC ####[facility] [address]clqtomah[address] [place] [address]Dr. Donna Malone MCHC (RBC) [Mass/Vol] 32.4 g/dL Normal 29.9-35.2 [facility] Comment on above: Performed By: #### C BC ####[facility] [address]yz[address] [place] [id number]. Donna Malone MCV (RBC) [Entitic vol] 92.8 fL Normal 80.0-94.0 [facility] Comment on above: Performed By: #### C BC ####[facility] O[address]rl[address]yc[address] [place] [id number]. Donna Faisal MONO # 0.6 103/ul Normal 0.3-0.8 [facility] Comment on above: Performed By: #### C BC ####[facility] Qnmfxdhtmp[address] [place] [id number]. Donna Malone Monocytes/100 WBC (Bld) 7.6 % Normal 1.7-12.0 [facility] Comment on above: Performed By: #### C BC ####[facility] [address]wkc[address] [place] [address]Dr. Donna Malone NEUT # 5.2 103/ul Normal 1.4-6.5 [facility] Comment on above: Performed By: #### C BC ####[facility] [address]mh[address] [place], [place] [address]Wp. Donna Malone Neutrophils/100 WBC (Bld) 71.0 % Normal 43.0-75.0 [facility] Comment on above: Performed By: #### C BC ####[facility] C[address]oy[address]emxp[address] [place], [place] [address]Lu. Donna Malone Platelet mean volume (Bld) [Entitic vol] 11.6 fL Normal 9.5-13.5 [facility] Comment on above: Performed By: #### C BC ####[facility] [address]iszpcdd[address] [place], [place] [address]Wm. Donna Malone PLT 237 103/ul Normal 150-450 [facility] Comment on above: Performed By: #### C BC ####[facility] Tvpyrekkhx6[address] [place], [place] [address]Ry. Donna Malone RBC 4.02 106/ul Critically low 4.70-6.10 [facility] Comment on above: Performed By: #### C BC ####[facility] Rsdompzikg3225 [place], [place] [address]Ha. Donna Malone WBC 7.3 103/ul Normal 4.0-11.0 [facility] Comment on above: Performed By: #### C BC ####[facility] Yxeryjoibz[address] [place], [place] [address]Xi. Donna Malone [facility]on SARS-CoV-2 (COVID-19) RNA JOSÉ MIGUEL+probe Ql (Unsp spec) Not detected Normal NOT DETECTED [facility] Comment on above: Result Comment: When [...] for this test is supported by the Public Health Social Worker of Health and Human Service's declaration that [...] be used). Performed By: #### C VDTBH ####[facility] [address] [place] [address]Dr. Donna Malone LACTATE/LACTIC ACIDon 2021 Lactate [Moles/Vol] 1.3 mmol/L Normal 0.4-1.9 [facility] Comment on above: Performed By: #### L ACT ####[facility] [address] [place], [place] [address]Dr. Donna Malone PROF 14(COMP METB)on 022 Albumin [Mass/Vol] 2.9 g/dL Critically low 3.4-5.0 [facility] Comment on above: Performed By: #### C MARTI, HSTROPN ####[facility] Zxvbiqipsz[address] [place] [address]Dr. Donna Malone Albumin/Globulin [Mass ratio] 0.7 {ratio} Normal [facility] Comment on above: Performed By: #### C MARTI, HSTROPN ####[facility] [address] [place], [place] [address]Dr. Donna Malone ALP [Catalytic activity/Vol] 45 U/L Critically low 46-116 [facility] Comment on above: Performed By: #### C MARTI, HSTROPN ####[facility] Fe[address] [place] [address]Dr. Donna Malone ALT [Catalytic activity/Vol] 12 U/L Critically low 16-63 [facility] Comment on above: Performed By: #### C MARTI, HSTROPN ####[facility] Cnz[address]qhjq32[address] [place] [address]Dr. Donna Malone Anion gap [Moles/Vol] 10.9 mmol/L Normal [facility] Comment on above: Performed By: #### C MARTI, HSTROPN ####[facility] Hxssehqpkf[address] [place] [address]Dr. Donna Malone AST [Catalytic activity/Vol] 10 U/L Critically low 15-37 [facility] Comment on above: Performed By: #### C MARTI, HSTROPN ####[facility] Fxpypkmxxf34[address] [place] [address]Dr. Donna Malone Bilirubin [Mass/Vol] 0.3 mg/dL Normal 0.2-1.0 [facility] Comment on above: Performed By: #### C MARTI, HSTROPN ####[facility] Fsqdtxpujp3634 [place] [address]Dr. Donna Malone Calcium [Mass/Vol] 8.9 mg/dL Normal 8.5-10.1 [facility] Comment on above: Performed By: #### C MARTI, HSTROPN ####[facility] [address] [place], [place] [address]Dr. Donna Malone Chloride [Moles/Vol] 106 mmol/L Normal 98-107 [facility] Comment on above: Performed By: #### C MARTI, HSTROPN ####[facility] [address] [place], [place] [address]Dr. Donna Malone CO2 [Moles/Vol] 29.4 mmol/L Normal 21.0-32.0 [facility] Comment on above: Performed By: #### C MARTI, HSTROPN ####[facility] [address] [place], [place] [address]Dr. Donna Malone Creatinine [Mass/Vol] 1.15 mg/dL Normal 0.70-1.30 [facility] Comment on above: Performed By: #### C MARTI, HSTROPN ####[facility] [address] [place], [place] [address]Dr. Donna Malone EGFR-AF SAMOAN >60 Normal >=60 [facility] Comment on above: Performed By: #### C MARTI, HSTROPN ####[facility] [address] [place], [place] [address]Dr. Donna Malone EGFR-NON AF SAMOAN >60 Normal >=60 [facility] Comment on above: Performed By: #### C MP, HSTROPN ####[facility] [address]red[address] [place] [address]Dr. Donna Maloen Globulin (S) [Mass/Vol] 4.2 g/dL Normal [facility] Comment on above: Performed By: #### C MP, HSTROPN ####[facility] [address]vuarxjed[address] [place] [address]Dr. Donna Malone Glucose [Mass/Vol] 116 mg/dL Critically high 74-106 T [facility] Comment on above: Performed By: #### C MARTI, HSTROPN ####[facility] Rq[address]xcm[address]oe[address] [place] [address]Dr. Donna Malone Potassium [Moles/Vol] 4.3 mmol/L Normal 3.5-5.1 [facility] Comment on above: Performed By: #### C MARTI, HSTROPN ####[facility] [address] [place], [place] [address]Dr. Donna Malone Protein [Mass/Vol] 7.1 g/dL Normal 6.4-8.2 [facility] Comment on above: Performed By: #### C MARTI, HSTROPN ####[facility] [address]xvprzit[address] [place] [address]Dr. Donna Malone Sodium [Moles/Vol] 142 mmol/L Normal 136-145 [facility] Comment on above: Performed By: #### C MP, HSTROPN ####[facility] [address]pcqjy[address] [place] [address]Dr. Donna Malone Urea nitrogen [Mass/Vol] 9.0 mg/dL Normal 7.0-18.0 [facility] Comment on above: Performed By: #### C MP, HSTROPN ####[facility] X[address]rixfcxef[address] [place] [address]Dr. Donna Malone Urea nitrogen/Creatinine [Mass ratio] 7.8 mg/mg Normal [facility] Comment on above: Performed By: #### C MP, HSTROPN ####[facility] [address] [place], [place] [address]Kw. Donna Malone TROPONIN, HIGH SENSITIVITYon 08-10-2022 HSTROP 9.1 pg/mL Normal 4.0-76.1 [facility] Comment on above: Result Comment: CUT- OFF POINTS HAVE BEEN ESTABLISHED BASED ON THE FOURTH UNIVERSAL DEFINITIONS OF MYOCARDIALINFARCTION. THE UPPER REFERENCE LIMIT (URL) OF TROPONIN, DEFINED THE 99TH PERCENTILE OFcTnI DISTRIBUTION IN A REFERENCE POPULATION, HAS BEEN CONFIRMED THE DECISION THRESHOLDFOR IA DIAGNOSIS. Performed By: #### C MP, HSTROPN ####[facility] [address] [place], [place] [address]Hz. Donna Malone XR KNEE RT 4V or >on 022 XR KNEE RT 4V or > Normal [facility] CT HEAD WO CONon 08-05-2022 CT HEAD WO CON Normal [facility] CT CSPINE WO CONon 2 CT CSPINE WO CON Normal [facility] CT FACIAL BONES WO CONon CT FACIAL BONES WO CON Normal Th e [facility] CT LSPINE WO CONon 2 CT LSPINE WO CON Normal [facility] Glucose Glucometer (BldC) [M ass/Vol]Ordered By: Sang Bauer on 07-20-2022 Glucose [Mass/Vol] 139 mg/dL [facility] Comment on above: Random Glucose Refer ence Range is dependent on time and content of last meal. Glucose of more than 200 mg/dL in a nonstressed, ambulatory subject supports the diagnosis of Diabetes Mellitus. No Panel InformationOrdered By: Sang Bauer on 07-20-2022 Bedside Glucose Comment Glu2: cleaned meter [facility] Cholesterol [Mass/volume] in Serum or PlasmaOrdered By: Sang Bauer on 07-18-2022 Cholesterol [Mass/Vol] 136 mg/dL 140-200 [facility] Comment on above: Chol less than 200 m g/dl low riskChol 201-239 mg/dl borderline riskChol 240 mg/dl and greater high risk Cholesterol in LDL Calc [Mas s/Vol]Ordered By: Sang Bauer on 07-18-2022 Cholesterol in LDL [Mass/Vol] 81 mg/dL 0-100 [facility] Comment on above: LDL ATP III CLASSIFI CATIONLDL less than 100 mg/dL OptimalLDL 100-129 mg/dL Near or above optimalLDL 130-159 mg/dL Borderline highLDL 160-189 mg/dL HighLDL greater than 189 mg/dL Very high Cholesterol in VLDL Calc [Ma ss/Vol]Ordered By: Sang Bauer on 07-18-2022 Cholesterol in VLDL [Mass/Vol] 17 mg/dL [facility] Serum or plasma high density lipoprotein (HDL) cholesterol measurementOrdered By: Sang Bauer on 07-18-2022 Cholesterol in HDL [Mass/Vol] 38 mg/dL 29-71 [facility] Comment on above: HDL CHOL ATP-III CLA SSIFICATION Cardiovascular RiskHDL > or equal to 60 mg/dL LOWHDL < 40 mg/dL HIGH Serum or plasma total choles terol/high density lipoprotein (HDL) cholesterol mass ratOrdered By: Sang Bauer on 07-18-2022 Cholesterol.total/Chol esterol in HDL [Mass ratio] 3.6 {ratio} <5.0 [facility] Triglyceride [Mass/volume] i n Serum or PlasmaOrdered By: Sang Bauer on 07-18-2022 Triglyceride [Mass/Vol] 85 mg/dL 35-149 [facility] Comment on above: TRIG ATP III CLASSIF [...] (PPP) [Time] 35.8 s 25.1-36.5 [facility] Albumin [Mass/volume] in Ser um or PlasmaOrdered By: Gayathri Leal on 07-17-2022 Albumin [Mass/Vol] 3.1 g/dL 3.2-5.5 [facility] Amphetamine Screen Ql (U)Ord ered By: Gayathri Leal on 07-17-2022 Amphetamines Ql (U) Negative Negative [facility] Automated erythrocytes count in urine sediment (number/area)Ordered By: Gayathri Leal on 07-17-2022 RBC Auto (Urine sed) [#/Area] 3-4 [HPF] 0-4 [facility] Automated leukocytes count i n urine sediment (number/area)Ordered By: Gayathri Leal on 07-17-2022 WBC Auto (Urine sed) [#/Area] 1-2 [HPF] 0-4 [facility] Barbiturates [Presence] in U rineOrdered By: Gayathri Leal on 07-17-2022 Barbiturates Ql (U) Negative Negative [facility] Basophils Auto (Bld) [#/Vol] Ordered By: Gayathri Leal on 07-17-2022 Basophils (Bld) [#/Vol] 0.1 10*3/uL 0.0-0.2 [facility] Basophils/100 WBC Auto (Bld) Ordered By: Gayathri Leal on 07-17-2022 Basophils/100 WBC (Bld) 1.0 % . [facility] Benzodiazepines [Presence] i n UrineOrdered By: Gayathri Leal on 07-17-2022 Benzodiazepines Ql (U) Positive Negative [facility] Bilirubin Test strip Ql (U)O rdered By: Gayathri Leal on 07-17-2022 Bilirubin Ql (U) Negative Negative [facility] COVID CepheidOrdered By: Olya Leal on 07-17-2022 SARS-CoV-2 (COVID-19) Ab IA Ql Negative Negative [facility] Comment on above: This is a duplicate [employer] Xpert Xpress CoV-2/Flu/RSV Plus RNA by RT-PCR result to be used for statistical tracking purpose only. SARS-CoV-2 (COVID-19) RNA JOSÉ MIGUEL+probe Ql (Unsp spec) [facility] Cannabinoids [Presence] in U rine by Screen methodOrdered By: Gayathri Leal on 07-17-2022 Cannabinoids Screen Ql (U) Negative Negative [facility] Comment on above: These are unconfirme d results and should not be used for legal purposes. Drug Cut-Off Concentration: AMPH 1000 ng/mL EWA 200 ng/mL JOHN 200 ng/mL COCM 300 ng/mL OP 300 ng/mL PCP 25 ng/mL THC 20 ng/mL Color Auto (U)Ordered By: Dung Leal on 07-17-2022 Color (U) Yellow Yellow [facility] Creatine kinase [Enzymatic a ctivity/volume] in Serum or PlasmaOrdered By: Gayathri Leal on 07-17-2022 CK [Catalytic activity/Vol] 137 U/L 22-269 [facility] Creatinine and Glomerular fi ltration rate.predicted panel (S/P/Bld)Ordered By: Gayathri Leal on 07-17-2022 Creatinine [Mass/Vol] 1.06 mg/dL 0.64-1.27 [facility] Direct bilirubin measurement Ordered By: Gayathri Leal on 07-17-2022 Bilirubin.direct [Mass/Vol] mg/dL 0.0-0.4 [facility] Eosinophils Auto (Bld) [#/Vo l]Ordered By: Gayathri Leal on 07-17-2022 Eosinophils (Bld) [#/Vol] 0.1 10*3/uL 0.0-0.45 [facility] Eosinophils/100 WBC Auto (Bl d)Ordered By: Gayathri Leal on 07-17-2022 Eosinophils/100 WBC (Bld) 0.7 % . [facility] Erythrocyte distribution wid th Auto (RBC) [Ratio]Ordered By: Gayathri Leal on 07-17-2022 Erythrocyte distribution width (RBC) [Ratio] 15.8 % 12.0-14.8 [facility] Estimated glomerular filtrat ion rate (GFR) non- AmericanOrdered By: Gayathri Leal on 07-17-2022 GFR/1.73 sq M.predicted among non-blacks MDRD (S/P/Bld) [Vol rate/Area] > 60 mL/Min [facility] Globulin Calc (S) [Mass/Vol] Ordered By: Gayathri Leal on 07-17-2022 Globulin (S) [Mass/Vol] 3.0 g/dL [facility] Glucose mean value [Mass/vol ume] in Blood Estimated from glycated hemoglobinOrdered By: Sang Bauer on 07-17-2022 Average glucose Estimated from glycated hemoglobin (Bld) [Mass/Vol] 114 mg/dL [facility] Hematocrit Auto (Bld) [Volum e fraction]Ordered By: Gayathri Leal on 07-17-2022 Hematocrit (Bld) [Volume fraction] 37.3 % 38.8-50.0 [facility] Hemoglobin A1c percentageOrd ered By: Sang Bauer on 07-17-2022 HbA1c (Bld) [Mass fraction] 5.6 % 4.3-5.6 [facility] Comment on above: Increased risk for d iabetes: 5.7 - 6.4diabetes: >6.4glycemic control for adults with diabetes: <7.0 Hemoglobin [Mass/volume] in BloodOrdered By: Gayathri Leal on 07-17-2022 Hemoglobin (Bld) [Mass/Vol] 12.3 g/dL 13.0-17.0 [facility] Ketones Auto test strip (U) [Mass/Vol]Ordered By: Gayathri Leal on 07-17-2022 Ketones (U) [Mass/Vol] 2+ Negative [facility] Laboratory - Chemistry and C hemistry - challengeOrdered By: Gayathri Leal on 07-17-2022 Natriuretic peptide B (Bld) [Mass/Vol] 116.0 pg/mL 5-100 [facility] Laboratory - CoagulationOrde red By: Gayathri Leal on 07-17-2022 PT Coag (PPP) [Time] 12.5 s 9.0-12.[address] [facility] - Drug toxicology Ordered By: Gayathri Leal on 07-17-2022 Opiates Ql (U) Negative Negative [facility] Laboratory - Hematology and Cell countsOrdered By: Gayathri Leal on 07-17-2022 Nucleated RBC/100 WBC (Bld) [Ratio] 0.1 % 0-0.5 [facility] Laboratory - UrinalysisOrder ed By: Gayathri Leal on 07-17-2022 Hyaline casts LM Ql (Urine sed) None seen [LPF] 0-8 [facility] Leukocytes [#/volume] in Blo od by Automated countOrdered By: Gayathri Leal on 07-17-2022 WBC (Bld) [#/Vol] 7.8 10*3/uL 4.5-11.0 [facility] Lymphocytes Auto (Bld) [#/Vo l]Ordered By: Gayathri Leal on 07-17-2022 Lymphocytes (Bld) [#/Vol] 2.3 10*3/uL 1.00-4.8 [facility] Lymphocytes/100 WBC Auto (Bl d)Ordered By: Gayathri Leal on 07-17-2022 Lymphocytes/100 WBC (Bld) 29.5 % . [facility] MCH Auto (RBC) [Entitic mass ]Ordered By: Gayathri Leal on 07-17-2022 MCH (RBC) [Entitic mass] 30.2 pg 27.5-35.2 [facility] MCHC Auto (RBC) [Mass/Vol]Or dered By: Gayathri Leal on 07-17-2022 MCHC (RBC) [Mass/Vol] 33.1 g/dL 32.5-35.6 [facility] MCV Auto (RBC) [Entitic vol] Ordered By: Gayathri Leal on 07-17-2022 MCV (RBC) [Entitic vol] 91.5 fL 83.5-101 [facility] Monocyte %Ordered By: Zeinab Leal on 07-17-2022 Monocyte % 20 umol/L [facility] Monocytes Auto (Bld) [#/Vol] Ordered By: Gayathri Leal on 07-17-2022 Monocytes (Bld) [#/Vol] 0.4 10*3/uL 0.0-0.8 [facility] Monocytes/100 WBC Auto (Bld) Ordered By: Gayathri Leal on 07-17-2022 Monocytes/100 WBC (Bld) 5.4 % . [facility] Neutrophils Auto (Bld) [#/Vo l]Ordered By: Gayathri Leal on 07-17-2022 Neutrophils (Bld) [#/Vol] 4.9 10*3/uL 1.8-7.7 [facility] Neutrophils/100 WBC Auto (Bl d)Ordered By: Gayathri Leal on 07-17-2022 Neutrophils/100 WBC (Bld) 63.4 % . [facility] Nitrite Test strip Ql (U)Ord ered By: Gayathri Leal on 07-17-2022 Nitrite Ql (U) Negative Negative [facility] No Panel InformationOrdered By: Gayathri Leal on 07-17-2022 Estimated GFR () > 60 mL/Min [facility] Comment on above: GFR estimated refere nce range: According to KDOQI guidelines, <60 ml/min/1.73m2 is sufficient to diagnose a patient with chronic kidney disease. Pharmacy Creatinine Clearance (Chem N/A [facility] Phencyclidine Screen Ql (U)O rdered By: Gayathri Leal on 07-17-2022 Phencyclidine Ql (U) Negative Negative [facility] Platelet mean volume Auto (B ld) [Entitic vol]Ordered By: Gayathri Leal on 07-17-2022 Platelet mean volume (Bld) [Entitic vol] 10.2 fL 6.6-10.1 [facility] Platelet poor plasma interna tional normalized ratio (INR) by coagulation assay (relatOrdered By: Gayathri Leal on 07-17-2022 INR Coag (PPP) [Relative time] 1.1 {INR} [facility] Comment on above: INR Therapeutic Rang e [...] 07-17-2022 Platelets (Bld) [#/Vol] 239 10*3/uL 150-450 [facility] Protein Auto test strip (U) [Mass/Vol]Ordered By: Gayathri Leal on 07-17-2022 Protein (U) [Mass/Vol] Negative Negative [facility] Protein [Mass/volume] in Ser um or PlasmaOrdered By: Gayathri Leal on 07-17-2022 Protein [Mass/Vol] 6.1 g/dL 6.1-7.9 [facility] RBC Auto (Bld) [#/Vol]Ordere d By: Gayathri Leal on 07-17-2022 RBC (Bld) [#/Vol] 4.07 10*6/uL 3.90-5.60 [facility] Serum or plasma alanine del valle otransferase measurement without P-5'-P (enzymatic activiOrdered By: Gayathri Leal on 07-17-2022 ALT No additional P-5'-P [Catalytic activity/Vol] 13 U/L 1060 [facility] Serum or plasma albumin/glob ulin mass ratioOrdered By: Gayathri Leal on 07-17-2022 Albumin/Globulin [Mass ratio] 1.0 {ratio} [facility] Serum or plasma alkaline gail sphatase measurement (enzymatic activity/volume)Ordered By: Gayathri Leal on 07-17-2022 ALP [Catalytic activity/Vol] 37 U/L 32-92 [facility] Serum or plasma anion gap de terminationOrdered By: Gayathri Leal on 07-17-2022 Anion gap [Moles/Vol] 12.1 mmol/L 6.0-15.0 [facility] Serum or plasma aspartate am inotransferase measurement (enzymatic activity/volume)Ordered By: Gayathri Leal on 07-17-2022 AST [Catalytic activity/Vol] 15 U/L 10-42 [facility] Serum or plasma calcium deepti urement (mass/volume)Ordered By: Gayathri Leal on 07-17-2022 Calcium [Mass/Vol] 8.8 mg/dL 8.2-10.2 [facility] Serum or plasma chloride deepak surement (moles/volume)Ordered By: Gayathri Leal on 07-17-2022 Chloride [Moles/Vol] 108 mmol/L 95-[address] [facility] Serum or plasma creatine kin ase MB (CKMB)/total creatine kinase (CK) ratio by calculaOrdered By: Gayathri Leal on 07-17-2022 CK.MB Calc [Catalytic fraction] 2.6 % 0.00-2.50 [facility] Serum or plasma creatine kin ase MB measurement (mass/volume)Ordered By: Gayathri Leal on 07-17-2022 CK.MB [Mass/Vol] 3.6 ng/mL 0.6-6.3 [facility] Serum or plasma glucose deepti urement (mass/volume)Ordered By: Gayathri Leal on 07-17-2022 Glucose [Mass/Vol] 91 mg/dL 70-100 [facility] Comment on above: ADA recommended refe rence rangeRandom Glucose Reference Range is dependent on time and content of last meal. Glucose of more than 200 mg/dL in a nonstressed, ambulatory subject supports the diagnosis of Diabetes Mellitus. Serum or plasma non-glucuron idated bilirubin measurement (mass/volume)Ordered By: Gayathri Leal on 07-17-2022 Bilirubin.indirect [Mass/Vol] TNP [facility] Comment on above: Test not performed Serum or plasma potassium me asurement (moles/volume)Ordered By: Gayathri Leal on 07-17-2022 Potassium [Moles/Vol] 4.0 mmol/L 3.5-5.1 [facility] Serum or plasma sodium measu rement (moles/volume)Ordered By: Gayathri Leal on 07-17-2022 Sodium [Moles/Vol] 139 mmol/L 136-146 [facility] Serum or plasma total biliru bin measurement (mass/volume)Ordered By: Gayathri Leal on 07-17-2022 Bilirubin [Mass/Vol] 0.8 mg/dL 0.3-1.[address] [facility] Serum or plasma total carbon dioxide measurement (moles/volume)Ordered By: Gayathri Leal on 07-17-2022 CO2 [Moles/Vol] 22.9 mmol/L 22.0-30.0 [facility] Serum or plasma urea nitroge n measurement (mass/volume)Ordered By: Gayathri Leal on 07-17-2022 Urea nitrogen [Mass/Vol] 12 mg/dL 9-23 [facility] Specific gravity Auto test s trip (U) [Rel density]Ordered By: Gayathri Leal on 07-17-2022 Specific gravity (U) [Rel density] 1.024 1.001-1.03 0 [facility] Squamous epithelial cells de tection in urine sediment by light microscopyOrdered By: Gayathri Leal on 07-17-2022 Epithelial cells.squamous LM Ql (Urine sed) None seen [HPF] 0-2 [facility] Troponin I.cardiac [Mass/vol ume] in Serum or Plasma by High sensitivity methodOrdered By: Sang Bauer on 07-17-2022 Troponin I.cardiac High sensitivity method [Mass/Vol] 7 pg/mL 0-20 [facility] Urine bacteria detection by automated methodOrdered By: Gayathri Leal on 07-17-2022 Bacteria Auto Ql (U) None seen None Seen [facility] Urine clarity by refractomet ry automatedOrdered By: Gayathri Leal on 07-17-2022 Clarity Refractometry automated (U) Clear Clear [facility] Urine cocaine detectionOrder ed By: Gayathri Leal on 07-17-2022 Cocaine Ql (U) Negative Negative [facility] Urine glucose measurement by automated test strip (mass/volume)Ordered By: Gayathri Leal on 07-17-2022 Glucose Auto test strip (U) [Mass/Vol] Normal mg/dL Normal [facility] Urine hemoglobin detection b y automated test stripOrdered By: Gayathri Leal on 07-17-2022 Hemoglobin Auto test strip Ql (U) Negative Negative [facility] Urine leukocyte esterase det ection by automated test stripOrdered By: Gayathri Leal on 07-17-2022 Leukocyte esterase Auto test strip Ql (U) 1+ Negative [facility] Urobilinogen Auto test strip (U) [Mass/Vol]Ordered By: Gayathri Leal on 07-17-2022 Urobilinogen (U) [Mass/Vol] Normal mg/dL Normal [facility] pH Auto test strip (U)Ordere d By: Gayathri Leal on 07-17-2022 pH (U) 6.5 [pH] 5.0-9.0 [facility] AMMONIAon 07-16-2022 Ammonia (P) [Moles/Vol] 44 umol/L Critically high 11-32 [facility] Comment on above: Performed By: #### A MM ####[facility] [address] [place], [place] [address]Dr. Donna Malone BNPon 07-16-2022 Natriuretic peptide B (Bld) [Mass/Vol] 236.0 pg/mL Normal <=900.0 [facility] Comment on above: Performed By: #### C MP, BNP ####[facility] Nyzon[address] [place], [place] [address]Dr. Donna Malone CBC AUTO DIFFon 07-16-2022 BASO # 0.1 103/ul Normal 0.0-0.1 [facility] Comment on above: Performed By: #### C BC ####[facility] [address] [place], [place] [address]Dr. Donna Malone Basophils/100 WBC (Bld) 1.0 % Normal 0.2-2.0 [facility] Comment on above: Performed By: #### C BC ####[facility] Dnmxei[address] [place], [place] [address]Dr. Donna Malone EO # 0.2 103/ul Normal 0.0-0.7 [facility] Comment on above: Performed By: #### C BC ####[facility] [address] [place], [place] [address]Dr. Donna Malone Eosinophils/100 WBC (Bld) 3.3 % Normal 0.9-7.0 [facility] Comment on above: Performed By: #### C BC ####[facility] [address] [place], [place] [address]Dr. Donna Malone Erythrocyte distribution width (RBC) [Ratio] 15.1 % Critically high 11.0-15.0 [facility] Comment on above: Performed By: #### C BC ####[facility] K[address]vc[address] [place], [place] [address]Dr. Donna Malone Hematocrit (Bld) [Volume fraction] 36.1 % Critically low 42.0-54.0 [facility] Comment on above: Performed By: #### C BC ####[facility] [address] [place] [id number]. Donna Malone Hemoglobin (Bld) [Mass/Vol] 12.0 g/dL Critically low 14.0-18.0 [facility] Comment on above: Performed By: #### C BC ####[facility] [address] [place] [id number]. Donna Malone IG # 0.01 10e3/ul Normal 0.00-0.03 [facility] Comment on above: Performed By: #### C BC ####[facility] [address] [place] [address]Dr. Donna Malone IG % 0.2 % Normal 0.0-0.5 [facility] Comment on above: Performed By: #### C BC ####[facility] [address] [place], [place] [address]Dr. Donna Malone LYMPH # 2.5 103/ul Normal 1.2-3.8 [facility] Comment on above: Performed By: #### C BC ####[facility] [address] [place] [address]Dr. Donna Malone Lymphocytes/100 WBC (Bld) 41.1 % Normal 20.5-60.0 [facility] Comment on above: Performed By: #### C BC ####[facility] [address] [place], [place] [address]Dr. Donna Malone MANUAL DIFF REQ NO Normal [facility] Comment on above: Performed By: #### C BC ####[facility] [address] [place] [id number]. Donna Malone MCH (RBC) [Entitic mass] 30.6 pg Normal 25.9-34.0 [facility] Comment on above: Performed By: #### C BC ####[facility] [address] [place] [id number]. Donna Malone MCHC (RBC) [Mass/Vol] 33.2 g/dL Normal 29.9-35.2 [facility] Comment on above: Performed By: #### C BC ####[facility] [address] [place] [id number]. Donna Malone MCV (RBC) [Entitic vol] 92.1 fL Normal 80.0-94.0 [facility] Comment on above: Performed By: #### C BC ####[facility] [address] [place] [id number]. Donna Malone MONO # 0.5 103/ul Normal 0.3-0.8 [facility] Comment on above: Performed By: #### C BC ####[facility] [address] [place] [id number]. Donna Malone Monocytes/100 WBC (Bld) 7.4 % Normal 1.7-12.0 [facility] Comment on above: Performed By: #### C BC ####[facility] [address] [place], [place] [address]Dr. Donna Malone NEUT # 2.9 103/ul Normal 1.4-6.5 [facility] Comment on above: Performed By: #### C BC ####[facility] [address] [place], [place] [address]Dr. Donna Malone Neutrophils/100 WBC (Bld) 47.0 % Normal 43.0-75.0 [facility] Comment on above: Performed By: #### C BC ####[facility] [address] [place], [place] [address]Dr. Donna Malone Platelet mean volume (Bld) [Entitic vol] 11.4 fL Normal 9.5-13.5 [facility] Comment on above: Performed By: #### C BC ####[facility] [address] [place] [id number]. Donna Malone PLT 206 103/ul Normal 150-450 [facility] Comment on above: Performed By: #### C BC ####[facility] X[address]our[address] [place] [id number]. Donna Faisal RBC 3.92 106/ul Critically low 4.70-6.10 [facility] Comment on above: Performed By: #### C BC ####[facility] [address] [place] [address]Dr. Donna Malone WBC 6.1 103/ul Normal 4.0-11.0 [facility] Comment on above: Performed By: #### C BC ####[facility] [address] [place] [address]Dr. Donna Malone ECHO LIMITED STUDYon 022 ECHO LIMITED STUDY Normal [facility] MRI BRAIN WO CONon 2 MRI BRAIN WO CON Normal [facility] PROF 14(COMP METB)on 022 Albumin [Mass/Vol] 2.8 g/dL Critically low 3.4-5.0 [facility] Comment on above: Performed By: #### C MP, BNP ####[facility] Qu[address] [place], [place] [address]Dr. Donna Malone Albumin/Globulin [Mass ratio] 0.9 {ratio} Normal [facility] Comment on above: Performed By: #### C MP, BNP ####[facility] [address] [place], [place] [address]Dr. Donna Malone ALP [Catalytic activity/Vol] 36 U/L Critically low 46-116 [facility] Comment on above: Performed By: #### C MP, BNP ####[facility] [address]zu[address] [place] [address]Dr. Donna Malone ALT [Catalytic activity/Vol] 13 U/L Critically low 16-63 [facility] Comment on above: Performed By: #### C MP, BNP ####[facility] [address]qzzdr[address] [place] [address]Dr. Donna Malone Anion gap [Moles/Vol] 10.4 mmol/L Normal [facility] Comment on above: Performed By: #### C MP, BNP ####[facility] [address]qtrorb[address] [place] [address]Dr. Donna Malone AST [Catalytic activity/Vol] 13 U/L Critically low 15-37 [facility] Comment on above: Performed By: #### C MP, BNP ####[facility] Ryflizzezb[address] [place] [address]Dr. Donna Malone Bilirubin [Mass/Vol] 0.3 mg/dL Normal 0.2-1.0 [facility] Comment on above: Performed By: #### C MP, BNP ####[facility] C[address]wytdfigh[address] [place] [address]Dr. Donna Malone Calcium [Mass/Vol] 8.2 mg/dL Critically low 8.5-10.1 [facility] Comment on above: Performed By: #### C MP, BNP ####[facility] Aw[address]efsc[address] [place] [address]Dr. Donna Malone Chloride [Moles/Vol] 108 mmol/L Critically high 98-107 [facility] Comment on above: Performed By: #### C MP, BNP ####[facility] Gazqypdxry[address] [place], [place] [address]Dr. Donna Malone CO2 [Moles/Vol] 25.5 mmol/L Normal 21.0-32.0 [facility] Comment on above: Performed By: #### C MP, BNP ####[facility] Aeqrahlxuc[address] [place], [place] [address]Dr. Donna Malone Creatinine [Mass/Vol] 0.92 mg/dL Normal 0.70-1.30 [facility] Comment on above: Performed By: #### C MP, BNP ####[facility] [address] [place], [place] [address]Dr. Donna Malone EGFR-AF SAMOAN >60 Normal >=60 [facility] Comment on above: Performed By: #### C MP, BNP ####[facility] [address]id[address] [place] [address]Dr. Donna Malone EGFR-NON AF SAMOAN >60 Normal >=60 [facility] Comment on above: Performed By: #### C MP, BNP ####[facility] [address]th[address] [place], [place] [address]Dr. Donna Malone Globulin (S) [Mass/Vol] 3.2 g/dL Normal [facility] Comment on above: Performed By: #### C MP, BNP ####[facility] Te[address]obmwiry[address] [place] [id number]. Donna Malone Glucose [Mass/Vol] 76 mg/dL Normal 74-106 [facility] Comment on above: Performed By: #### C MP, BNP ####[facility] X[address]bufccmw[address] [place] [address]Dr. Donna Malone Potassium [Moles/Vol] 3.9 mmol/L Normal 3.5-5.1 [facility] Comment on above: Performed By: #### C MP, BNP ####[facility] Iwsqtrwyld[address] [place] [address]Dr. Donna Malone Protein [Mass/Vol] 6.0 g/dL Critically low 6.4-8.2 Th [facility] Comment on above: Performed By: #### C MP, BNP ####[facility] R[address]imwzbts[address] [place], [place] [address]Dr. Donna Malone Sodium [Moles/Vol] 140 mmol/L Normal 136-145 [facility] Comment on above: Performed By: #### C MP, BNP ####[facility] [address]ezt[address] [place], [place] [address]Dr. Donna Malone Urea nitrogen [Mass/Vol] 12.0 mg/dL Normal 7.0-18.0 [facility] Comment on above: Performed By: #### C MP, BNP ####[facility] Fxyt[address]fx[address] [place], [place] [address]Dr. Donna Malone Urea nitrogen/Creatinine [Mass ratio] 13.0 mg/mg Normal [facility] Comment on above: Performed By: #### C MP, BNP ####[facility] G[address]cvvea[address] [place], [place] [address]Dr. Donna Malone VIT B12 AND FOLATEon 022 Cobalamin (Vitamin B12) [Mass/Vol] 532.0 pg/mL Normal 193.0-986. 0 [facility] Comment on above: Performed By: #### B 12FOL ####[facility] [address] [place], [place] [address]Dr. Donna Malone FOLATE 13.60 ng/mL Normal 8.60-58.90 [facility] Comment on above: Performed By: #### B 12FOL ####[facility] [address] [place] [address]Dr. Donna Malone AMMONIAon 07-15-2022 Ammonia (P) [Moles/Vol] 23 umol/L Normal 32 [facility] Comment on above: Performed By: #### A MM ####[facility] [address] [place], [place] [address]Dr. Donna Malone BLOOD GASES BTYon 07-15-2022 02 MODE ROOM AIR [facility] Comment on above: Performed By: #### A BG ####[facility] Cmorogzbxg[address] [place], [place] [address]Dr. Donna Malone ALLENS TEST Positive [facility] Comment on above: Performed By: #### A BG ####[facility] Nqrtyswzvk[address] [place], [place] [address]Dr. Donna Malone Base excess Calc (Bld) [Moles/Vol] -1.3000 mmol/L Normal -2.0-2.0 [facility] Comment on above: Performed By: #### A BG ####[facility] [address]upk[address] [place], [place] [address]Dr. Donna Malone BIPAP PRESSURE [facility] Comment on above: Performed By: #### A BG ####[facility] E[address]qp[address] [place], [place] [address]Dr. Donna Malone CPAP [facility] Comment on above: Performed By: #### A BG ####[facility] Scrazyralv[address] [place], [place] [address]Dr. Donna Malone FIO2 [facility] Comment on above: Performed By: #### A BG ####[facility] [address] [place], [place] [address]Dr. Donna Malone HCO3 (Bld) [Moles/Vol] 22.7 mmol/L Normal 22.0-26.0 [facility] Comment on above: Performed By: #### A BG ####[facility] Th[address] [place], [place] [id number]. Donna Malone LPM Normal [facility] Comment on above: Performed By: #### A BG ####[facility] [address]fwtzuwo[address] [place], [place] [address]Dr. Donna Malone MINUTE VOLUME Normal [facility] Comment on above: Performed By: #### A BG ####[facility] Qdonytogue[address] [place], [place] [address]Dr. Donna Malone Oxygen (Bld) [Partial pressure] 77.7 mm[Hg] Critically low 80.0-100.0 [facility] Comment on above: Performed By: #### A BG ####[facility] Lmedqmgofj[address] [place], [place] [address]Dr. Donna Malone Oxygen saturation in Blood 95.9 % Normal 95.0-100.0 [facility] Comment on above: Performed By: #### A BG ####[facility] [address] [place], [place] [address]Dr. Donna Malone PCO2 33.0 mmHg Critically low 35.0-45.0 [facility] Comment on above: Performed By: #### A BG ####[facility] G[address]lfat[address] [place], [place] [address]Dr. Donna Malone PEEP [facility] Comment on above: Performed By: #### A BG ####[facility] [address]igs[address] [place], [place] [address]Dr. Donna Malone pH (Bld) 7.446 [pH] Normal 7.350-7.45 0 [facility] Comment on above: Performed By: #### A BG ####[facility] [address] [place], [place] [address]Dr. Donna Malone PIP [place] [facility] Comment on above: Performed By: #### A BG ####[facility] [address] [place], [place] [address]Dr. Donna Malone PS Normal [facility] Comment on above: Performed By: #### A BG ####[facility] [address] [place], [place] [address]Dr. Donna Malone PUNCTURE SITE RB Normal [facility] Comment on above: Performed By: #### A BG ####[facility] [address] [place] [address]Dr. Donna Malone RATE Normal [facility] Comment on above: Performed By: #### A BG ####[facility] [address]xr[address] [place] [address]Dr. Donna Malone VENT MODE Normal [facility] Comment on above: Performed By: #### A BG ####[facility] [address] [place] [address]Dr. Rubyyvan Malone [place] Normal [facility] Comment on above: Performed By: #### A BG ####[facility] [address] [place] [address]Dr. Donna Malone BNPon 07-15-2022 Natriuretic peptide B (Bld) [Mass/Vol] 111.0 pg/mL Normal <=900.0 [facility] Comment on above: Performed By: #### B MATCHING MACHINE OPERATOR, CMP, CMADM ####[facility] [address] [place] [address]Dr. Donna Malone CARDIAC MJ 3-6on 2 CK [Catalytic activity/Vol] 102 U/L Normal 39-308 [facility] Comment on above: Performed By: #### C MREP ####[facility] [address] [place] [address]Dr. Donna Malone CK.MB [Mass/Vol] 3.67 ng/mL Critically high <=3.60 [facility] Comment on above: Performed By: #### C MREP ####[facility] [address] [place] [address]Dr. Donna Malone HSTROP 13.1 pg/mL Normal 4.0-76.1 The [facility] Comment on above: Result Comment: CUT- OFF POINTS HAVE BEEN ESTABLISHED BASED ON THE FOURTH UNIVERSAL DEFINITIONS OF MYOCARDIALINFARCTION. THE UPPER REFERENCE LIMIT (URL) OF TROPONIN, DEFINED THE 99TH PERCENTILE OFcTnI DISTRIBUTION IN A REFERENCE POPULATION, HAS BEEN CONFIRMED THE DECISION THRESHOLDFOR IA DIAGNOSIS. Performed By: #### C MREP ####[facility] [address] [place], [place] [address]Ej. Donna Malone CK [Catalytic activity/Vol] 89 U/L Normal 39-308 The [facility] Comment on above: Performed By: #### C MREP ####[facility] S[address] [place], [place] [address]Si. Donna Malone CK.MB [Mass/Vol] 3.37 ng/mL Normal <=3.60 The [facility] Comment on above: Performed By: #### C MREP ####[facility] [address]ff[address]ke[address] [place] [id number]. Donna Malone HSTROP 11.2 pg/mL Normal 4.0-76.1 The [facility] Comment on above: Result Comment: CUT- OFF POINTS HAVE BEEN ESTABLISHED BASED ON THE FOURTH UNIVERSAL DEFINITIONS OF MYOCARDIALINFARCTION. THE UPPER REFERENCE LIMIT (URL) OF TROPONIN, DEFINED THE 99TH PERCENTILE OFcTnI DISTRIBUTION IN A REFERENCE POPULATION, HAS BEEN CONFIRMED THE DECISION THRESHOLDFOR IA DIAGNOSIS. Performed By: #### C MREP ####[facility] Qdm[address]dlqurb[address] [place] [phone]. Donna Malone CARDIAC MJ ADMITon 022 CK [Catalytic activity/Vol] 76 U/L Normal 39-308 The [facility] Comment on above: Performed By: #### B MATCHING MACHINE OPERATOR, CMP, CMADM ####[facility] R[address]kjdeqwb[address] [place] [phone]. Donna Malone CK.MB [Mass/Vol] 2.59 ng/mL Normal <=3.60 The [facility] Comment on above: Performed By: #### B MATCHING MACHINE OPERATOR, CMP, CMADM ####[facility] Kq[address]vseqcjd[address] [place] [phone]. Donna Malone HSTROP 10.1 pg/mL Normal 4.0-76.1 The [facility] Comment on above: Result Comment: CUT- OFF POINTS HAVE BEEN ESTABLISHED BASED ON THE FOURTH UNIVERSAL DEFINITIONS OF MYOCARDIALINFARCTION. THE UPPER REFERENCE LIMIT (URL) OF TROPONIN, DEFINED THE 99TH PERCENTILE OFcTnI DISTRIBUTION IN A REFERENCE POPULATION, HAS BEEN CONFIRMED THE DECISION THRESHOLDFOR IA DIAGNOSIS. Performed By: #### B MATCHING MACHINE OPERATOR, CMP, CMADM ####[facility] J[address]xlxukzzv[address] [place] [phone]. Rubyyvan Malone BINDU 109 ng/mL Critically high 16-96 [facility] Comment on above: Performed By: #### B MATCHING MACHINE OPERATOR, CMP, CMADM ####[facility] [address]hs[address] [place] [phone]. Rubyyvan Malone CBC AUTO DIFFon 07-15-2022 BASO # 0.0 103/ul Normal 0.0-0.1 [facility] Comment on above: Performed By: #### C BC ####[facility] Xfunjbajkc[address] [place] [address]Dr. Donna Malone Basophils/100 WBC (Bld) 0.7 % Normal 0.2-2.0 [facility] Comment on above: Performed By: #### C BC ####[facility] Bfqq[address]ie[address] [place], [place] [address]Dr. Donna Malone EO # 0.1 103/ul Normal 0.0-0.7 The [facility] Comment on above: Performed By: #### C BC ####[facility] Djcg[address]shy[address] [place], [place] [address]Dr. Donna Malone Eosinophils/100 WBC (Bld) 2.3 % Normal 0.9-7.0 [facility] Comment on above: Performed By: #### C BC ####[facility] Dgsgtymkup[address] [place], [place] [address]Dr. Donna Malone Erythrocyte distribution width (RBC) [Ratio] 15.2 % Critically high 11.0-15.0 [facility] Comment on above: Performed By: #### C BC ####[facility] Gdbtfkyioc[address] [place], [place] [address]Dr. Donna Malone Hematocrit (Bld) [Volume fraction] 34.8 % Critically low 42.0-54.0 [facility] Comment on above: Performed By: #### C BC ####[facility] Getclhirxr3[address] [place], [place] [address]Dr. Donna Malone Hemoglobin (Bld) [Mass/Vol] 11.4 g/dL Critically low 14.0-18.0 [facility] Comment on above: Performed By: #### C BC ####[facility] Isjdlphnxp[address] [place] [address]DrElizabeth Malone IG # 0.01 10e3/ul Normal 0.00-0.03 [facility] Comment on above: Performed By: #### C BC ####[facility] Fkznkxjyii[address] [place] [address]DrElizabeth Malone IG % 0.2 % Normal 0.0-0.5 [facility] Comment on above: Performed By: #### C BC ####[facility] Zhvvpfnsfn[address] [place], [place] [address]DrElizabeth Malone LYMPH # 1.6 103/ul Normal 1.2-3.8 The [facility] Comment on above: Performed By: #### C BC ####[facility] Cpilscszfk[address] [place], [place] [address]DrElizabeth Malone Lymphocytes/100 WBC (Bld) 26.4 % Normal 20.5-60.0 [facility] Comment on above: Performed By: #### C BC ####[facility] Boiqlnupim[address] [place], [place] [address]DrElizabeth Malone MANUAL DIFF REQ NO Normal [facility] Comment on above: Performed By: #### C BC ####[facility] Rqfnnuflkb[address] [place], [place] [address]DrElizabeth Malone MCH (RBC) [Entitic mass] 30.7 pg Normal 25.9-34.0 [facility] Comment on above: Performed By: #### C BC ####[facility] Tnrqrwcxrr8[address] [place], [place] [address]DrElizabeth Malone MCHC (RBC) [Mass/Vol] 32.8 g/dL Normal 29.9-35.2 The [facility] Comment on above: Performed By: #### C BC ####[facility] Rh[address]rwacwnb[address] [place], [place] [address]DrElizabeth Malone MCV (RBC) [Entitic vol] 93.8 fL Normal 80.0-94.0 The [facility] Comment on above: Performed By: #### C BC ####[facility] Ljmpaphary[address] [place] [phone]. Donna Malone MONO # 0.5 103/ul Normal 0.3-0.8 [facility] Comment on above: Performed By: #### C BC ####[facility] Mtdkaopywe[address] [place] [phone]. Donna Malone Monocytes/100 WBC (Bld) 7.5 % Normal 1.7-12.0 [facility] Comment on above: Performed By: #### C BC ####[facility] K[address]qmvkq[address] [place] [address]Dr. Donna Malone NEUT # 3.8 103/ul Normal 1.4-6.5 [facility] Comment on above: Performed By: #### C BC ####[facility] Cafxbuwjld[address] [place], [place] [address]Dr. Donna Malone Neutrophils/100 WBC (Bld) 62.9 % Normal 43.0-75.0 [facility] Comment on above: Performed By: #### C BC ####[facility] Uxyt[address] [place], [place] [address]Dr. Donna Malone Platelet mean volume (Bld) [Entitic vol] 11.7 fL Normal 9.5-13.5 [facility] Comment on above: Performed By: #### C BC ####[facility] [address]fm[address] [place] [phone]. Donna Malone PLT 220 103/ul Normal 150-450 The [facility] Comment on above: Performed By: #### C BC ####[facility] Mfexmortlj54[address] [place] [phone]. Donna Malone RBC 3.71 106/ul Critically low 4.70-6.10 The [facility] Comment on above: Performed By: #### C BC ####[facility] [address] [place] [phone]. Donna Malone WBC 6.0 103/ul Normal 4.0-11.0 The [facility] Comment on above: Performed By: #### C BC ####[facility] [address] [place], [place] [address]. [address] CT CSPINE WO CONon 2 CT CSPINE WO CON Normal The [facility] CT HEAD WO CONon 07-15-2022 CT HEAD WO CON Normal The [facility] CTA NECK WO W CONon 07-15-20 22 CTA NECK WO W CON Normal The [facility] CULTURE URINEon 07-15-2022 CULTURE URINE Culture Observations : LIGHT GROWTH OF MIXED SKIN MICHAEL. NO POTENTIAL PATHOGENS SEEN. Normal The [facility] Comment on above: Performed By: #### U RCX ####[facility] [address] [place], [place] [address]Qn. Donna Malone Covid-19 PCR (CVDTB)on SARS-CoV-2 (COVID-19) RNA JOSÉ MIGUEL+probe Ql (Unsp spec) Not detected Normal NOT DETECTED The [facility] Comment on above: Result Comment: When [...] for this test is supported by the Public Health Social Worker of Health and Human Service's declaration that [...] be used). Performed By: #### C VDTBH ####[facility] [address] [place], [place] [address]Ax. Donna Malone DEPAKENE/VALPROICon 07-15-20 22 DEPAKENE 53.6 ug/ml Normal 50.0-100.0 The [facility] Comment on above: Performed By: #### V ALP ####[facility] [address] [place] [address]Dr. Donna Malone DRUG SCREEN RAPID (URINE)on 07-15-2022 AMP Negative Normal NEGATIVE The [facility] Comment on above: Performed By: #### D SHARONA, ERUR ####[facility] [address] [place] [address]Dr. Donna Malone BAR Negative Normal NEGATIVE The [facility] Comment on above: Performed By: #### Calvin TABOR, ERUR ####[facility] [address]qi[address] [place] [address]Dr. Donna Malone BUP Negative Normal NEGATIVE The [facility] Comment on above: Performed By: #### Calvin TABOR, ERUR ####[facility] Y[address]fgqui[address] [place] [address]Dr. Donna Malone BZO Positive Abnormal NEGATIVE The [facility] Comment on above: Performed By: #### Calvin TABOR, ERUR ####[facility] [address]frlkbnv[address] [place] [address]Dr. Donna Malone EVONNE Negative Normal NEGATIVE The [facility] Comment on above: Performed By: #### Calvin TABOR, ERUR ####[facility] Trezbshw[address] [place], [place] [address]Dr. Donna [facility] CUT-OFFS SEE BELOW Normal The [facility] Comment on above: Result Comment: AMP [...] ng/mL Performed By: #### Calvin TABOR, ERUR ####[facility] [address]os[address] [place] [phone]. Donna Malone DRUG CUT HEADER DRUG CLASS TEST SYST EM CUT-OFF CONCENTRATIONS ARE FOLLOWS: Normal The [facility] Comment on above: Performed By: #### D SHARONA, ERUR ####[facility] [address]chucolg[address] [place] [phone]. Donna Malone mAMP Negative Normal NEGATIVE The [facility] Comment on above: Performed By: #### D SHARONA, ERUR ####[facility] [address]hwfwas[address] [place] [phone]. Donna Malone MTD Negative Normal NEGATIVE The [facility] Comment on above: Performed By: #### D SHARONA, ERUR ####[facility] [address]xyltpsr[address] [place] [address]Dr. Donna Malnoe OPI Negative Normal NEGATIVE The [facility] Comment on above: Performed By: #### Calvin TABOR, ERUR ####[facility] K[address]lt[address]yysfd[address] [place] [phone]. Yiyvan Malone OXY Negative Normal NEGATIVE The [facility] Comment on above: Performed By: #### D SHARONA, ERUR ####[facility] L[address]dzlkqjm[address] [place] [address]Dr. Donna Malone PCP Negative Normal NEGATIVE The [facility] Comment on above: Performed By: #### Calvin TABOR, ERUR ####[facility] S[address]ef[address]zfti[address] [place] [phone]. Donna Malone PPX Negative Normal NEGATIVE The [facility] Comment on above: Performed By: #### Calvin TABOR, ERUR ####[facility] Ggmefxkzlk9[address] [place] [phone]. Donna Malone TCA Positive Abnormal NEGATIVE The [facility] Comment on above: Performed By: #### Calvin TABOR, ERUR ####[facility] Qrduykzjyo[address] [place] [phone]. Donna Malone THC Negative Normal NEGATIVE The [facility] Comment on above: Performed By: #### Calvin TABOR, ERUR ####[facility] Uookkadtny[address] [place] [phone]. Donna Faisal ER URINE PROFILEon 2 Bilirubin Ql (U) Negative Normal NEGATIVE The [facility] Comment on above: Performed By: #### Calvin TABOR, ERUR ####[facility] Zhxjvfkmoy[address] [place] [address]Dr. Donna Malone Clarity (U) CLEAR Normal CLEAR The [facility] Comment on above: Performed By: #### Calvin TABOR, ERUR ####[facility] Aoywmbruks[address] [place], [place] [address]Dr. Donna Malone Color (U) YELLOW Normal YELLOW The [facility] Comment on above: Performed By: #### Calvin TABOR ERUR ####[facility] Xxnoonbtol[address] [place], [place] [address]Dr. Donna FERNANDEZD A micrscopic examina tion will be performed if indicated. Normal The [facility] Comment on above: Performed By: #### Calvin TABOR ERUR ####[facility] Pgeudohyck[address] [place], [place] [address]Dr. Donna Malone Glucose Ql (U) Negative Normal NEGATIVE The [facility] Comment on above: Performed By: #### WESLY LAUR ####[facility] Mhnnmwgkes[address] [place], [place] [address]Dr. Donna Malone Hemoglobin Ql (U) Negative Normal NEGATIVE The [facility] Comment on above: Performed By: #### Calvin TABOR ERUR ####[facility] Zukvdhtrtz[address] [place], [place] [address]Dr. Donna Malone Ketones Ql (U) 15 mg/dl Abnormal NEGATIVE The [facility] Comment on above: Performed By: #### Calvin TABOR ERUR ####[facility] Ezxialpjrz[address] [place], [place] [address]Dr. Donna Malone LEUKOCYTES Negative Normal NEGATIVE The [facility] Comment on above: Performed By: #### Calvin TABOR, ERUR ####[facility] Ulxunipqki[address] [place], [place] [address]Dr. Donna Malone Nitrite Ql (U) Negative Normal NEGATIVE The [facility] Comment on above: Performed By: #### D SHARONA, ERUR ####[facility] Huoxezejaq[address] [place] [phone]. Donna Malone pH (U) 6.0 [pH] Normal 5-9 [facility] Comment on above: Performed By: #### D SHARONA, ERUR ####[facility] Wzztvmrhld[address] [place] [address]Dr. Donna Malone SPEC GRAVITY >=1.030 Abnormal 1.005-<=1. 025 [facility] Comment on above: Performed By: #### D SHARONA ERUR ####[facility] Xeqdzmczor[address] [place] [address]Dr. Donna Malone UA PROTEIN TRACE Normal NEGATIVE/ TRACE [facility] Comment on above: Performed By: #### D SHARONA, ERUR ####[facility] [address]wtvhwurqe[address] [place], [place] [address]Dr. Donna Malone UR MICRO IND NOT INDICATED Normal [facility] Comment on above: Performed By: #### D WESLY TABORR ####[facility] Lyjizrxvlp[address] [place], [place] [address]Dr. Donna Malone Urobilinogen Qn (U) 0.2 {Jermain'U}/dL Normal 0.2 - 1. 0 [facility] Comment on above: Performed By: #### Calvin TABOR, ERUR ####[facility] Fezjos[address]wm[address] [place], [place] [address]Dr. Donna Malone ETHANOL (BLD ALC)on 07-15-20 22 ALC NOTE NOTE: 80 mg/dl is th e legal limit for a blood alcohol level Normal The [facility] Comment on above: Performed By: #### E TH ####[facility] Qtsshlswka[address] [place], [place] [address]Dr. Donna Malone Ethanol [Mass/Vol] mg/dL Normal [facility] Comment on above: Performed By: #### E TH ####[facility] Iikiqmgbly[address] [place], [place] [address]Dr. Donna Malone LACTATE/LACTIC ACIDon 2021 Lactate [Moles/Vol] 1.3 mmol/L Normal 0.4-1.9 [facility] Comment on above: Performed By: #### L ACT ####[facility] Qhwekvxlij4[address] [place] [address]Dr. Donna Malone PROF 14(COMP METB)on 022 Albumin [Mass/Vol] 2.9 g/dL Critically low 3.4-5.0 Th [facility] Comment on above: Performed By: #### B MATCHING MACHINE OPERATOR, CMP, CMADM ####[facility] Ztyadabbnn[address] [place] [address]Dr. Donna Malone Albumin/Globulin [Mass ratio] 0.9 {ratio} Normal [facility] Comment on above: Performed By: #### B MATCHING MACHINE OPERATOR, CMP, CMADM ####[facility] Vnwwvqodxb8[address] [place] [address]Dr. Donna Malone ALP [Catalytic activity/Vol] 37 U/L Critically low 46-116 [facility] Comment on above: Performed By: #### B MATCHING MACHINE OPERATOR, CMP, CMADM ####[facility] Zydijzdzvh[address] [place] [address]Dr. Donna Malone ALT [Catalytic activity/Vol] 10 U/L Critically low 16-63 [facility] Comment on above: Performed By: #### B MATCHING MACHINE OPERATOR, CMP, CMADM ####[facility] Ghjxqtekfj18[address] [place] [address]Dr. Donna Malone Anion gap [Moles/Vol] 8.0 mmol/L Normal [facility] Comment on above: Performed By: #### B MATCHING MACHINE OPERATOR, CMP, CMADM ####[facility] Vmthywkfts[address] [place] [address]Dr. Donna Malone AST [Catalytic activity/Vol] 12 U/L Critically low 15-37 [facility] Comment on above: Performed By: #### B MATCHING MACHINE OPERATOR, CMP, CMADM ####[facility] Ifylpbtudz[address] [place] [address]Dr. Donna Malone Bilirubin [Mass/Vol] 0.3 mg/dL Normal 0.2-1.0 [facility] Comment on above: Performed By: #### B MATCHING MACHINE OPERATOR, CMP, CMADM ####[facility] Ccrlbbslle[address] [place] [address]Dr. Donna Malone Calcium [Mass/Vol] 7.9 mg/dL Critically low 8.5-10.1 Th e [facility] Comment on above: Performed By: #### B MATCHING MACHINE OPERATOR, CMP, CMADM ####[facility] Egwcbfaezs23[address] [place] [address]Dr. Donna Malone Chloride [Moles/Vol] 107 mmol/L Normal 98-107 [facility] Comment on above: Performed By: #### B MATCHING MACHINE OPERATOR, CMP, CMADM ####[facility] H[address]acwbf[address] [place], [place] [address]Dr. Donna Malone CO2 [Moles/Vol] 27.1 mmol/L Normal 21.0-32.0 [facility] Comment on above: Performed By: #### B MATCHING MACHINE OPERATOR, CMP, CMADM ####[facility] Ftknqdobft[address] [place], [place] [address]Dr. Donna Malone Creatinine [Mass/Vol] 0.99 mg/dL Normal 0.70-1.30 [facility] Comment on above: Performed By: #### B MATCHING MACHINE OPERATOR, CMP, CMADM ####[facility] [address]rjjcltcku[address] [place], [place] [address]Dr. Donna Malone EGFR-AF SAMOAN >60 Normal >=60 [facility] Comment on above: Performed By: #### B MATCHING MACHINE OPERATOR, CMP, CMADM ####[facility] Xvrqyxheaa[address] [place], [place] [address]Dr. Donna Malone EGFR-NON AF SAMOAN >60 Normal >=60 [facility] Comment on above: Performed By: #### B MATCHING MACHINE OPERATOR, CMP, CMADM ####[facility] Z[address]tteawfv[address] [place], [place] [address]Dr. Donna Malone Globulin (S) [Mass/Vol] 3.3 g/dL Normal The [facility] Comment on above: Performed By: #### B MATCHING MACHINE OPERATOR, CMP, CMADM ####[facility] Hxruouvlyu[address] [place], [place] [address]Dr. Donna Malone Glucose [Mass/Vol] 101 mg/dL Normal 74-106 [facility] Comment on above: Performed By: #### B MATCHING MACHINE OPERATOR, CMP, CMADM ####[facility] Erhjfxzdah[address] [place] [address]Dr. Donna Malone Potassium [Moles/Vol] 4.1 mmol/L Normal 3.5-5.1 [facility] Comment on above: Performed By: #### B MATCHING MACHINE OPERATOR, CMP, CMADM ####[facility] Zudoembptd[address] [place] [address]Dr. Donna Malone Protein [Mass/Vol] 6.2 g/dL Critically low 6.4-8.2 Th e [facility] Comment on above: Performed By: #### B MATCHING MACHINE OPERATOR, CMP, CMADM ####[facility] Uccaenuhkd[address] [place] [address]Dr. Donna Malone Sodium [Moles/Vol] 138 mmol/L Normal 136-145 [facility] Comment on above: Performed By: #### B MATCHING MACHINE OPERATOR, CMP, CMADM ####[facility] Ccxuqeeojy[address] [place] [address]Dr. Rubyyvan Malone Urea nitrogen [Mass/Vol] 16.0 mg/dL Normal 7.0-18.0 [facility] Comment on above: Performed By: #### B MATCHING MACHINE OPERATOR, CMP, CMADM ####[facility] Scbkpwqsqh9[address] [place] [address]Dr. Donna Malone Urea nitrogen/Creatinine [Mass ratio] 16.2 mg/mg Normal [facility] Comment on above: Performed By: #### B MATCHING MACHINE OPERATOR, CMP, CMADM ####[facility] Rlkqkbltad[address] [place] [address]Dr. Donna Malone PROTIMEon 07-15-2022 INR Coag (PPP) [Relative time] 1.06 {INR} Normal The [facility] Comment on above: Performed By: #### P T, PTT ####[facility] Nfxtvrvsjx[address] [place] [address]Dr. Donna Malone INR GUIDELINES SEE BELOW Normal [facility] Comment on above: Result Comment: FLORESITA RED INR: 2.0 - 3.0 CONDITIONS NOT LISTED BELOW 2.5 - 3.5 FOR PROSTHETIC HEART VALVE REPLACEMENT 2.5 - 3.5 RECURRENT THROMBOSIS Performed By: #### P T, PTT ####[facility] [address]ixsnvwn[address] [place], [place] [address]Dr. Donna Malone PT Coag (PPP) [Time] 11.4 s Normal 9.0-11.6 [facility] Comment on above: Performed By: #### P T, PTT ####[facility] Ol[address]igtsh[address] [place], [place] [address]Dr. Donna Malone PTTon 07-15-2022 aPTT Coag (Bld) [Time] 30.8 s Normal 22.3-36.2 Th [facility] Comment on above: Performed By: #### P T, PTT ####[facility] Ueezobqgml[address] [place], [place] [address]Dr. Donna Malone XR CHEST 1 Von 07-15-2022 XR CHEST 1 V Normal The [facility] CULTURE URINEon 06-24-2022 CULTURE URINE Normal The [facility] Comment on above: Performed By: #### U RCX ####[facility] Imrrprdxro[address] [place], [place] [address]Dr. Donna Malone UA RANDOM W/MICROSCOPICon BACTERIA NONE SEEN Normal NONE SEEN The [facility] Comment on above: Performed By: #### U AMIC ####[facility] Dasinyzfeq[address] [place], [place] [address]Dr. Donna Malone Bilirubin Ql (U) Negative Normal NEGATIVE The [facility] Comment on above: Performed By: #### U AMIC ####[facility] Dxibwntirx[address] [place], [place] [address]Dr. Donna Malone CAST NONE SEEN Normal NONE SEEN The [facility] Comment on above: Performed By: #### U AMIC ####[facility] Ctrazksvpr[address] [place], [place] [address]Dr. Donna Malone Clarity (U) CLEAR Normal CLEAR The [facility] Comment on above: Performed By: #### U AMIC ####[facility] [address]vwwstic[address] [place], [place] [address]Dr. Donna Malone Color (U) DK. YELLOW Normal YELLOW The [facility] Comment on above: Performed By: #### U AMIC ####[facility] Wtzofbbwnb[address] [place] [address]Dr. Donna Malone Crystals LM Nom (Urine sed) NONE SEEN Normal NONE SEEN The [facility] Comment on above: Performed By: #### U AMIC ####[facility] Nlthojoctr[address] [place], [place] [address]Dr. Donna Malone Epithelial cells LM Ql (Urine sed) NONE SEEN Normal NONE SEEN /RARE [facility] Comment on above: Performed By: #### U AMIC ####[facility] Fojpypukni436[address] [place], [place] [address]Dr. Donna Malone Glucose Ql (U) 100 mg/dl Abnormal NEGATIVE [facility] Comment on above: Performed By: #### U AMIC ####[facility] Fndhqdhywp07[address] [place], [place] [address]Dr. Donna Malone Hemoglobin Ql (U) Negative Normal NEGATIVE [facility] Comment on above: Performed By: #### U AMIC ####[facility] Kywisxduyy418[address] [place], [place] [address]Dr. Donna Malone Ketones Ql (U) TRACE Abnormal NEGATIVE [facility] Comment on above: Performed By: #### U AMIC ####[facility] Lpelktyxcp039[address] [place], [place] [address]Dr. Donna Malone LEUKOCYTES Negative Normal NEGATIVE The [facility] Comment on above: Performed By: #### U AMIC ####[facility] Ayvcgnflyq396[address] [place], [place] [address]Dr. Donna Malone MUCOUS SMALL Abnormal NONE SEEN [facility] Comment on above: Performed By: #### U AMIC ####[facility] Roegphkkay694[address] [place], [place] [address]Dr. Donna Malone Nitrite Ql (U) Negative Normal NEGATIVE The [facility] Comment on above: Performed By: #### U AMIC ####[facility] Bnsivqawiy6177[address] [place], [place] [address]Dr. Donna Malone pH (U) 6.0 [pH] Normal 5-9 [facility] Comment on above: Performed By: #### U AMIC ####[facility] [address]ibijay[address] [place] [address]Dr. Donna Malone RBC NONE SEEN Abnormal 0-2 [facility] Comment on above: Performed By: #### U AMIC ####[facility] Rrlnvvvbqt13[address] [place] [id number]. Donna Malone SPEC GRAVITY 1.030 Abnormal 1.005-<=1. 025 [facility] Comment on above: Performed By: #### U AMIC ####[facility] Fvhtztuuti75[address] [place] [address]Dr. Donna Malone UA PROTEIN Negative Normal NEGATIVE/ TRACE [facility] Comment on above: Performed By: #### U AMIC ####[facility] Ubdqapdfxj7[address] [place] [address]Dr. Donna Malone Urobilinogen Qn (U) 0.2 {Jermain'U}/dL Normal 0.2 - 1. 0 [facility] Comment on above: Performed By: #### U AMIC ####[facility] Snbinjcrur57[address] [place] [address]Dr. Donna Malone WBC 2-5 Abnormal NONE SEEN The [facility] Comment on above: Performed By: #### U AMIC ####[facility] Ijtdobeegz9[address] [place] [address]Dr. Donna Malone COMPLIANCE DRUG SCREENon PDF . Normal [facility] Comment on above: Performed By: #### D SDOALC ####[facility] Lwdkqkwdxg7165[address] [place], [place] [address]Dr. Donna Malone Summary FINAL Normal [facility] Comment on above: Result Comment: =====TOXASSURE [...] call . Performed By: #### D SDOALC ####[facility] Aeejbqursw6076[address] [place], [place] [address]Dr. Donna Malone CBC AUTO DIFFon 05-16-2022 BASO # 0.0 103/ul Normal 0.0-0.1 [facility] Comment on above: Performed By: #### C BC ####[facility] Xzbunhbfue167[address] [place], [place] [address]Dr. Donna Malone Basophils/100 WBC (Bld) 0.4 % Normal 0.2-2.0 [facility] Comment on above: Performed By: #### C BC ####[facility] Fmannmcztj1864[address] [place], [place] [address]Dr. Donna Malone EO # 0.1 103/ul Normal 0.0-0.7 [facility] Comment on above: Performed By: #### C BC ####[facility] Khfuwxxnsn4932[address] [place], [place] [address]Dr. Donna Malone Eosinophils/100 WBC (Bld) 0.9 % Normal 0.9-7.0 [facility] Comment on above: Performed By: #### C BC ####[facility] Belvmkwaov5435[address] [place], [place] [address]Dr. Rubyyvan Malone Erythrocyte distribution width (RBC) [Ratio] 14.9 % Normal 11.0-15.0 [facility] Comment on above: Performed By: #### C BC ####[facility] Njhdcbvynv242[address] [place], [place] [address]Dr. Rubyyvan Malone Hematocrit (Bld) [Volume fraction] 41.0 % Critically low 42.0-54.0 [facility] Comment on above: Performed By: #### C BC ####[facility] Wiaebqfbbj3678[address] [place], [place] [address]Dr. Rubyyvan Malone Hemoglobin (Bld) [Mass/Vol] 13.3 g/dL Critically low 14.0-18.0 [facility] Comment on above: Performed By: #### C BC ####[facility] Bsdxenmnce5959[address] [place], [place] [address]Dr. Donna Malone IG # 0.03 10e3/ul Normal 0.00-0.03 [facility] Comment on above: Performed By: #### C BC ####[facility] Uprommtkdk600[address] [place], [place] [address]Dr. Donna Malone IG % 0.3 % Normal 0.0-0.5 [facility] Comment on above: Performed By: #### C BC ####[facility] Bdcdcheuem230[address] [place], [place] [address]Dr. Donna Malone LYMPH # 1.4 103/ul Normal 1.2-3.8 [facility] Comment on above: Performed By: #### C BC ####[facility] Aipqicsdza333[address] [place], [place] [address]Dr. Donna Malone Lymphocytes/100 WBC (Bld) 15.3 % Critically low 20.5-60.0 [facility] Comment on above: Performed By: #### C BC ####[facility] Kbtfuiekre4832[address] [place], [place] [address]Dr. Donna Malone MANUAL DIFF REQ NO Normal [facility] Comment on above: Performed By: #### C BC ####[facility] Ezumsgkint037[address] [place], [place] [address]Dr. Donna Faisla MCH (RBC) [Entitic mass] 29.4 pg Normal 25.9-34.0 [facility] Comment on above: Performed By: #### C BC ####[facility] Evdvifoutr11[address] [place] [address]Dr. Donna Malone MCHC (RBC) [Mass/Vol] 32.4 g/dL Normal 29.9-35.2 [facility] Comment on above: Performed By: #### C BC ####[facility] Yymdpyuuca34[address] [place] [address]Dr. Donna Faisal MCV (RBC) [Entitic vol] 90.5 fL Normal 80.0-94.0 [facility] Comment on above: Performed By: #### C BC ####[facility] Hkazmgqnhl65[address] [place] [address]Dr. Rubyyvan Malone MONO # 0.8 103/ul Normal 0.3-0.8 [facility] Comment on above: Performed By: #### C BC ####[facility] Imqwgqyhwt12[address] [place] [address]Dr. Rubyyvan Malone Monocytes/100 WBC (Bld) 8.7 % Normal 1.7-12.0 [facility] Comment on above: Performed By: #### C BC ####[facility] Jxfbzaunpf8314 [place] [address]Dr. Donna Malone NEUT # 6.9 103/ul Critically high 1.4-6.5 The [facility] Comment on above: Performed By: #### C BC ####[facility] Ueruinykfj7[address] [place] [address]Dr. Rubyyvan Malone Neutrophils/100 WBC (Bld) 74.4 % Normal 43.0-75.0 The [facility] Comment on above: Performed By: #### C BC ####[facility] Qcybuuvjkr6858 [place] [address]Dr. Donna Malone Platelet mean volume (Bld) [Entitic vol] 11.9 fL Normal 9.5-13.5 [facility] Comment on above: Performed By: #### C BC ####[facility] Utgffzhexh1114 [place] [id number]. Rubyyvan Faisal PLT 174 103/ul Normal 150-450 [facility] Comment on above: Performed By: #### C BC ####[facility] Qglbagegfq3428 [place] [address]Dr. Donna Malone RBC 4.53 106/ul Critically low 4.70-6.10 [facility] Comment on above: Performed By: #### C BC ####[facility] Pmitpgtdrt0[address] [place] [address]Dr. Donna Faisal WBC 9.2 103/ul Normal 4.0-11.0 [facility] Comment on above: Performed By: #### C BC ####[facility] Adgrehuljf04[address] [place] [address]Dr. Donna Malone PROF 14(COMP METB)on 022 Albumin [Mass/Vol] 3.0 g/dL Critically low 3.4-5.0 [facility] Comment on above: Performed By: #### C MP ####[facility] Wxsprkugft298[address] [place], [place] [address]Dr. Donna Malone Albumin/Globulin [Mass ratio] 0.8 {ratio} Normal [facility] Comment on above: Performed By: #### C MP ####[facility] Oqmimxixii1222[address] [place], [place] [address]Dr. Donna Malone ALP [Catalytic activity/Vol] 39 U/L Critically low 46-116 [facility] Comment on above: Performed By: #### C MP ####[facility] Xmhxjguwtp5729[address] [place], [place] [address]Dr. Donna Malone ALT [Catalytic activity/Vol] 16 U/L Normal 16-63 [facility] Comment on above: Performed By: #### C MP ####[facility] Cpamqtzqbi6116[address] [place], [place] [address]Dr. Donna Malone Anion gap [Moles/Vol] 10.8 mmol/L Normal [facility] Comment on above: Performed By: #### C MP ####[facility] Xtkmqxuoeh8162 [place] [address]Dr. Donna Malone AST [Catalytic activity/Vol] 9 U/L Critically low 15-37 [facility] Comment on above: Performed By: #### C MP ####[facility] Tcisyrmuzi5889[address] [place], [place] [address]Dr. Donna Malone Bilirubin [Mass/Vol] 0.3 mg/dL Normal 0.2-1.0 [facility] Comment on above: Performed By: #### C MP ####[facility] Sqetqkcyih6760[address] [place], [place] [address]Dr. Donna Malone Calcium [Mass/Vol] 8.8 mg/dL Normal 8.5-10.1 [facility] Comment on above: Performed By: #### C MP ####[facility] Mozxchnjxo160[address] [place], [place] [address]Dr. Donna Malone Chloride [Moles/Vol] 105 mmol/L Normal 98-107 [facility] Comment on above: Performed By: #### C MP ####[facility] Ydohshamlr9010[address] [place], [place] [address]Dr. Donna Malone CO2 [Moles/Vol] 26.7 mmol/L Normal 21.0-32.0 The [facility] Comment on above: Performed By: #### C MP ####[facility] Pizjmkpuuq5068[address] [place], [place] [address]Dr. Donna Malone Creatinine [Mass/Vol] 0.97 mg/dL Normal 0.70-1.30 [facility] Comment on above: Performed By: #### C MP ####[facility] Ufzftswwkx0566[address] [place], [place] [address]Dr. Donna Faisal EGFR-AF SAMOAN >60 Normal >=60 [facility] Comment on above: Performed By: #### C MP ####[facility] Vvqoeovnny8701[address] [place], [place] [address]Dr. Rubyyvan Faisal EGFR-NON AF SAMOAN >60 Normal >=60 [facility] Comment on above: Performed By: #### C MP ####[facility] Hleieolwxw2584[address] [place], [place] [address]Dr. Yiyvna Malone Globulin (S) [Mass/Vol] 3.7 g/dL Normal [facility] Comment on above: Performed By: #### C MP ####[facility] Eoxvdkqpgk20[address] [place] [address]Dr. Donna Malone Glucose [Mass/Vol] 98 mg/dL Normal 74-106 [facility] Comment on above: Performed By: #### C MP ####[facility] Akseysdjge[address] [place] [address]Dr. Donna Malone Potassium [Moles/Vol] 3.5 mmol/L Normal 3.5-5.1 [facility] Comment on above: Performed By: #### C MP ####[facility] Grfwvzrykw3580 [place] [address]Dr. Donna Malone Protein [Mass/Vol] 6.7 g/dL Normal 6.4-8.2 [facility] Comment on above: Performed By: #### C MP ####[facility] Mbeykxuqhw415[address] [place], [place] [address]Dr. Donna Malone Sodium [Moles/Vol] 139 mmol/L Normal 136-145 [facility] Comment on above: Performed By: #### C MP ####[facility] Ktapjqxuru350[address] [place], [place] [address]Dr. Donna Malone Urea nitrogen [Mass/Vol] 11.0 mg/dL Normal 7.0-18.0 [facility] Comment on above: Performed By: #### C MP ####[facility] Mlfygdbqvs057[address] [place], [place] [address]Dr. Donna Malone Urea nitrogen/Creatinine [Mass ratio] 11.3 mg/mg Normal [facility] Comment on above: Performed By: #### C MP ####[facility] Ikvkurvopq5507 [place] [address]Dr. Donna Malone T3, TOTAL (TRIIODOTHYRONINE) on 05-16-2022 T3, TOTAL 86 ng/dL Normal 71-180 [facility] Comment on above: Performed By: #### T 3TOTAL ####[facility] Ytfwjfzzqp9016[address] [place], [place] [address]Dr. Donna Malone T4 LABCORPon 05-16-2022 T4 [Mass/Vol] 6.4 ug/dL Normal 4.5-12.0 [facility] Comment on above: Performed By: #### T 4LC ####[facility] Eendizyyyx33[address] [place] [address]Dr. Donna Malone CBC AUTO DIFFon 05-15-2022 BASO # 0.0 103/ul Normal 0.0-0.1 The [facility] Comment on above: Performed By: #### C BC ####[facility] Jggcuyvhiy6458[address] [place], [place] [address]Dr. Donna Faisal Basophils/100 WBC (Bld) 0.3 % Normal 0.2-2.0 [facility] Comment on above: Performed By: #### C BC ####[facility] Yespiwhnaj450[address] [place], [place] [address]Dr. Rubyyvan Malone EO # 0.2 103/ul Normal 0.0-0.7 [facility] Comment on above: Performed By: #### C BC ####[facility] Jnbmplkhph149[address] [place], [place] [address]Dr. Donna Malone Eosinophils/100 WBC (Bld) 2.0 % Normal 0.9-7.0 [facility] Comment on above: Performed By: #### C BC ####[facility] Okprdplgin5384[address] [place], [place] [address]Dr. Donna Malone Erythrocyte distribution width (RBC) [Ratio] 14.6 % Normal 11.0-15.0 [facility] Comment on above: Performed By: #### C BC ####[facility] Hwbchwvjki207[address] [place], [place] [address]Dr. Donna Malone Hematocrit (Bld) [Volume fraction] 38.2 % Critically low 42.0-54.0 [facility] Comment on above: Performed By: #### C BC ####[facility] Ekvlrnlyam701[address] [place], [place] [address]Dr. Donna Malone Hemoglobin (Bld) [Mass/Vol] 12.7 g/dL Critically low 14.0-18.0 [facility] Comment on above: Performed By: #### C BC ####[facility] Efhxdzktch3835 [place] [id number]. Donna Malone IG # 0.04 10e3/ul Critically high 0.00-0.03 [facility] Comment on above: Performed By: #### C BC ####[facility] Mwodfmgqel1027 [place] [id number]. Donna Malone IG % 0.4 % Normal 0.0-0.5 [facility] Comment on above: Performed By: #### C BC ####[facility] Oqiyyifujg5[address] [place] [address]Dr. Donna Malone LYMPH # 1.4 103/ul Normal 1.2-3.8 [facility] Comment on above: Performed By: #### C BC ####[facility] Jhjqkzjlwq6570 [place] [address]Dr. Rubyyvan Malone Lymphocytes/100 WBC (Bld) 14.9 % Critically low 20.5-60.0 [facility] Comment on above: Performed By: #### C BC ####[facility] Kluwyivxbg10[address] [place] [address]Dr. Donna Malone MANUAL DIFF REQ NO Normal [facility] Comment on above: Performed By: #### C BC ####[facility] Adnecketad69[address] [place], [place] [address]Dr. Donna aMlone MCH (RBC) [Entitic mass] 30.0 pg Normal 25.9-34.0 [facility] Comment on above: Performed By: #### C BC ####[facility] Svirsqlkdi020[address] [place], [place] [address]Dr. Donna Malone MCHC (RBC) [Mass/Vol] 33.2 g/dL Normal 29.9-35.2 The [facility] Comment on above: Performed By: #### C BC ####[facility] Xrwlmbqkjd297[address] [place], [place] [address]Dr. Donna Malone MCV (RBC) [Entitic vol] 90.3 fL Normal 80.0-94.0 [facility] Comment on above: Performed By: #### C BC ####[facility] Oguacptuor08[address] [place] [id number]. Donna Malone MONO # 0.8 103/ul Normal 0.3-0.8 [facility] Comment on above: Performed By: #### C BC ####[facility] Ehdordiyhp3446 [place] [id number]. Donna Malone Monocytes/100 WBC (Bld) 8.5 % Normal 1.7-12.0 [facility] Comment on above: Performed By: #### C BC ####[facility] Eiletsjght1520 [place] [id number]. Donna Malone NEUT # 6.8 103/ul Critically high 1.4-6.5 The [facility] Comment on above: Performed By: #### C BC ####[facility] Cbgwtolsbc829[address] [place], [place] [address]Dr. Donna Malone Neutrophils/100 WBC (Bld) 73.9 % Normal 43.0-75.0 The [facility] Comment on above: Performed By: #### C BC ####[facility] Wxpdtetglu9577 [place] [address]Dr. Donna Malone Platelet mean volume (Bld) [Entitic vol] 12.0 fL Normal 9.5-13.5 [facility] Comment on above: Performed By: #### C BC ####[facility] Mqdwxjrmai9925 [place] [id number]. Donna Malone PLT 154 103/ul Normal 150-450 [facility] Comment on above: Performed By: #### C BC ####[facility] Vjvphwpqyc[address] [place], [place] [id number]. Donna Malone RBC 4.23 106/ul Critically low 4.70-6.10 [facility] Comment on above: Performed By: #### C BC ####[facility] Ranbgflucm8833 [place] [id number]. Donna Malone WBC 9.2 103/ul Normal 4.0-11.0 The [facility] Comment on above: Performed By: #### C BC ####[facility] Lbdrfmzuvu8258[address] [place], [place] [address]Dr. Donna Malone PROF 14(COMP METB)on 022 Albumin [Mass/Vol] 2.9 g/dL Critically low 3.4-5.0 [facility] Comment on above: Performed By: #### C MP ####[facility] Mndltmdhmd583[address] [place], [place] [address]Dr. Donna Malone Albumin/Globulin [Mass ratio] 0.9 {ratio} Normal [facility] Comment on above: Performed By: #### C MP ####[facility] Amszrogmja8144[address] [place], [place] [address]Dr. Donna Malone ALP [Catalytic activity/Vol] 41 U/L Critically low 46-116 [facility] Comment on above: Performed By: #### C MP ####[facility] Jaujvoowfb7969[address] [place], [place] [address]Dr. Donna Malone ALT [Catalytic activity/Vol] 12 U/L Critically low 16-63 [facility] Comment on above: Performed By: #### C MP ####[facility] Zkvdqewcsd55[address] [place], [place] [address]Dr. Donna Malone Anion gap [Moles/Vol] 5.6 mmol/L Normal [facility] Comment on above: Performed By: #### C MP ####[facility] Qmnldndueu5339[address] [place], [place] [address]Dr. Donna Malone AST [Catalytic activity/Vol] 8 U/L Critically low 15-37 [facility] Comment on above: Performed By: #### C MP ####[facility] Zvqahtxyxu4217[address] [place], [place] [address]Dr. Donna Malone Bilirubin [Mass/Vol] 0.5 mg/dL Normal 0.2-1.0 [facility] Comment on above: Performed By: #### C MP ####[facility] Jcmgyejfhy27[address] [place], [place] [address]Dr. Donna Malone Calcium [Mass/Vol] 8.3 mg/dL Critically low 8.5-10.1 [facility] Comment on above: Performed By: #### C MP ####[facility] Qfdtsygnck9747 [place] [id number]. Donna Malone Chloride [Moles/Vol] 106 mmol/L Normal 98-107 [facility] Comment on above: Performed By: #### C MP ####[facility] Sdqpnymisz9138 [place] [id number]. Donna Malone CO2 [Moles/Vol] 23.1 mmol/L Normal 21.0-32.0 [facility] Comment on above: Performed By: #### C MP ####[facility] Bxyfbtrlrh5347 [place] [address]Dr. Donna Malone Creatinine [Mass/Vol] 0.82 mg/dL Normal 0.70-1.30 [facility] Comment on above: Performed By: #### C MP ####[facility] Sttakzsonk[address] [place] [address]Dr. Donna Faisal EGFR-AF SAMOAN >60 Normal >=60 [facility] Comment on above: Performed By: #### C MP ####[facility] Ifipbdtnoq3540 [place] [address]Dr. Donna Malone EGFR-NON AF SAMOAN >60 Normal >=60 [facility] Comment on above: Performed By: #### C MP ####[facility] Armgpoktrx58[address] [place] [address]Dr. Donna Faisal Globulin (S) [Mass/Vol] 3.2 g/dL Normal [facility] Comment on above: Performed By: #### C MP ####[facility] Szdsemiszn488[address] [place] [address]Dr. Donna Faisal Glucose [Mass/Vol] 81 mg/dL Normal 74-106 [facility] Comment on above: Performed By: #### C MP ####[facility] Ijklvvugja6740[address] [place], [place] [address]Dr. Donna Malone Potassium [Moles/Vol] 3.7 mmol/L Normal 3.5-5.1 [facility] Comment on above: Performed By: #### C MP ####[facility] Tvxxrdyejw4745[address] [place], [place] [address]Dr. Donna Malone Protein [Mass/Vol] 6.1 g/dL Critically low 6.4-8.2 Th [facility] Comment on above: Performed By: #### C MP ####[facility] Amarhvqwla55[address] [place], [place] [address]Dr. Donna Malone Sodium [Moles/Vol] 131 mmol/L Critically low 136-145 Th [facility] Comment on above: Performed By: #### C MP ####[facility] Soqxflziua037[address] [place], [place] [address]Dr. Donna Malone Urea nitrogen [Mass/Vol] 17.0 mg/dL Normal 7.0-18.0 [facility] Comment on above: Performed By: #### C MP ####[facility] Nsnnecrdkk2[address] [place], [place] [address]Dr. Donna Malone Urea nitrogen/Creatinine [Mass ratio] 20.7 mg/mg Normal [facility] Comment on above: Performed By: #### C MP ####[facility] Imbxmnzibb106[address] [place], [place] [address]Dr. Donna Malone CBC AUTO DIFFon 05-14-2022 BASO # 0.1 103/ul Normal 0.0-0.1 [facility] Comment on above: Performed By: #### C BC ####[facility] Wcokzsnatn[address] [place], [place] [address]Dr. Donna Malone Basophils/100 WBC (Bld) 0.8 % Normal 0.2-2.0 [facility] Comment on above: Performed By: #### C BC ####[facility] Apuzrvdown86[address] [place], [place] [address]Dr. Donna Malone EO # 0.3 103/ul Normal 0.0-0.7 [facility] Comment on above: Performed By: #### C BC ####[facility] Hishmgijyx100070 [address] [place], [place] [address]Dr. Donna Malone Eosinophils/100 WBC (Bld) 4.2 % Normal 0.9-7.0 [facility] Comment on above: Performed By: #### C BC ####[facility] Qlsyyeydkx727[address] [place], [place] [address]Dr. Rubyyvan Malone Erythrocyte distribution width (RBC) [Ratio] 14.7 % Normal 11.0-15.0 [facility] Comment on above: Performed By: #### C BC ####[facility] Aqiovtxmnq27[address] [place], [place] [address]Dr. Donna Malone Hematocrit (Bld) [Volume fraction] 36.5 % Critically low 42.0-54.0 [facility] Comment on above: Performed By: #### C BC ####[facility] Vchziobwbv[address] [place], [place] [address]Dr. Donna Malone Hemoglobin (Bld) [Mass/Vol] 11.9 g/dL Critically low 14.0-18.0 [facility] Comment on above: Performed By: #### C BC ####[facility] Hnjohnnopa6[address] [place], [place] [address]Dr. Donna Malone IG # 0.01 10e3/ul Normal 0.00-0.03 [facility] Comment on above: Performed By: #### C BC ####[facility] Guxjvrsowv022[address] [place], [place] [address]Dr. Donna Malone IG % 0.2 % Normal 0.0-0.5 [facility] Comment on above: Performed By: #### C BC ####[facility] Apkuqbxbkn8[address] [place], [place] [address]Dr. Donna Malone LYMPH # 2.1 103/ul Normal 1.2-3.8 [facility] Comment on above: Performed By: #### C BC ####[facility] Cmbcifsxby015[address] [place], [place] [address]Dr. Donna Malone Lymphocytes/100 WBC (Bld) 32.1 % Normal 20.5-60.0 [facility] Comment on above: Performed By: #### C BC ####[facility] Qmpttpcqey179[address] [place], [place] [address]Dr. Donna Malone MANUAL DIFF REQ NO Normal [facility] Comment on above: Performed By: #### C BC ####[facility] Xtsdpwoybz347[address] [place], [place] [address]Dr. Donna Faisal MCH (RBC) [Entitic mass] 29.7 pg Normal 25.9-34.0 [facility] Comment on above: Performed By: #### C BC ####[facility] X[address]wn[address] [place] [address]Dr. Donna Malone MCHC (RBC) [Mass/Vol] 32.6 g/dL Normal 29.9-35.2 [facility] Comment on above: Performed By: #### C BC ####[facility] Pvticchqis[address] [place] [address]Dr. Donna Faisal MCV (RBC) [Entitic vol] 91.0 fL Normal 80.0-94.0 [facility] Comment on above: Performed By: #### C BC ####[facility] Xlygohqmng40[address] [place] [address]Dr. Donna Malone MONO # 0.5 103/ul Normal 0.3-0.8 [facility] Comment on above: Performed By: #### C BC ####[facility] Hpbrxcmulg6[address] [place] [address]Dr. Rubyyvan Malone Monocytes/100 WBC (Bld) 8.1 % Normal 1.7-12.0 [facility] Comment on above: Performed By: #### C BC ####[facility] Fyxwzqgbgt3543 [place] [address]Dr. Donna Faisal NEUT # 3.5 103/ul Normal 1.4-6.5 [facility] Comment on above: Performed By: #### C BC ####[facility] Zdunioogty9[address] [place] [address]Dr. Donna Malone Neutrophils/100 WBC (Bld) 54.6 % Normal 43.0-75.0 [facility] Comment on above: Performed By: #### C BC ####[facility] Davmiflodx8[address] [place] [address]Dr. Donna Malone Platelet mean volume (Bld) [Entitic vol] 12.0 fL Normal 9.5-13.5 [facility] Comment on above: Performed By: #### C BC ####[facility] Kxpmudjjyb72[address] [place] [id number]. Donna Malone PLT 152 103/ul Normal 150-450 [facility] Comment on above: Performed By: #### C BC ####[facility] Yyvimjhpto34[address] [place] [address]Dr. Donna Malone RBC 4.01 106/ul Critically low 4.70-6.10 [facility] Comment on above: Performed By: #### C BC ####[facility] Jdyhvchdtq5151 [place] [address]Dr. Rubyyvan Malone WBC 6.4 103/ul Normal 4.0-11.0 [facility] Comment on above: Performed By: #### C BC ####[facility] Fjuvqmhpeb33[address] [place], [place] [address]Dr. Donna Malone DEPAKENE/VALPROICon 05-14-20 22 DEPAKENE 17.3 ug/ml Critically low 50.0-100.0 [facility] Comment on above: Performed By: #### V ALP ####[facility] Fugybauwot8225[address] [place], [place] [address]Dr. Donna Malone POINT OF CARE GLUCOSEon Glucose [Mass/Vol] 89 mg/dL Normal 74-106 [facility] Comment on above: Performed By: #### P OCGLUC ####[facility] Hiztwuhael80[address] [place] [address]Dr. Donna Malone PROF CHEM 8 (BAS METB)on Anion gap [Moles/Vol] 13.6 mmol/L Normal [facility] Comment on above: Performed By: #### B MP ####[facility] Ihexmexrjk8757[address] [place], [place] [address]Dr. Donna Malone Calcium [Mass/Vol] 7.8 mg/dL Critically low 8.5-10.1 [facility] Comment on above: Performed By: #### B MP ####[facility] Eqouhivxpl1048[address] [place], [place] [address]Dr. Donna Malone Chloride [Moles/Vol] 112 mmol/L Critically high 98-107 [facility] Comment on above: Performed By: #### B MP ####[facility] Xcptkyeewg3699 [place] [address]Dr. Donna Malone CO2 [Moles/Vol] 22.5 mmol/L Normal 21.0-32.0 [facility] Comment on above: Performed By: #### B MP ####[facility] Bzducuyllr6427 [place] [address]Dr. Donna Malone Creatinine [Mass/Vol] 1.01 mg/dL Normal 0.70-1.30 [facility] Comment on above: Performed By: #### B MP ####[facility] Uafzdimklu1858[address] [place], [place] [address]Dr. Rubyyvan Faisal EGFR-AF SAMOAN >60 Normal >=60 [facility] Comment on above: Performed By: #### B MP ####[facility] Oovqatzybf6667[address] [place], [place] [address]Dr. Rubyyvan Faisal EGFR-NON AF SAMOAN >60 Normal >=60 [facility] Comment on above: Performed By: #### B MP ####[facility] Ovogmxbdyd647[address] [place], [place] [address]Dr. Donna Faisal Glucose [Mass/Vol] 84 mg/dL Normal 74-106 [facility] Comment on above: Performed By: #### B MP ####[facility] Geprieucxa0118[address] [place], [place] [address]Dr. Rubyyvan Faisal Potassium [Moles/Vol] 4.1 mmol/L Normal 3.5-5.1 [facility] Comment on above: Performed By: #### B MP ####[facility] Exhxmlkgdd360[address] [place], [place] [address]Dr. Rubyyvan Malone Sodium [Moles/Vol] 144 mmol/L Normal 136-145 [facility] Comment on above: Performed By: #### B MP ####[facility] Whghyvmcus1586[address] [place], [place] [address]Dr. Rubyyvan Faisal Urea nitrogen [Mass/Vol] 21.0 mg/dL Critically high 7.0-18.0 [facility] Comment on above: Performed By: #### B MP ####[facility] Xpouzukaai44[address] [place] [address]Dr. Donna Malone Urea nitrogen/Creatinine [Mass ratio] 20.8 mg/mg Normal [facility] Comment on above: Performed By: #### B MP ####[facility] Cpxfwsvrzx4567[address] [place], [place] [address]Dr. Donna Malone TSHon 05-14-2022 TSH 1.086 uIU/mL Normal 0.358-3.74 0 [facility] Comment on above: Performed By: #### T SH ####[facility] Hkiawtbtqq4612[address] [place], [place] [address]Dr. Donna Malone BLOOD GASES BTYon 05-13-2022 02 MODE ROOM AIR [facility] Comment on above: Performed By: #### A BG ####[facility] Jrahtlckpf5705[address] [place], [place] [address]Dr. Donna Malone ALLENS TEST Positive [facility] Comment on above: Performed By: #### A BG ####[facility] Bvtuvdtepo7856[address] [place], [place] [address]Dr. Donna Malone Base excess Calc (Bld) [Moles/Vol] -2.5000 mmol/L Critically low -2.0-2.0 [facility] Comment on above: Performed By: #### A BG ####[facility] Bzwmztzagl3174[address] [place], [place] [address]Dr. Donna Malone BIPAP PRESSURE Normal [facility] Comment on above: Performed By: #### A BG ####[facility] Hlmckctqde0380[address] [place], [place] [address]Dr. Donna Malone CPAP Normal [facility] Comment on above: Performed By: #### A BG ####[facility] Ybmsjltilp7556[address] [place], [place] [address]Dr. Donna Malone FIO2 Normal [facility] Comment on above: Performed By: #### A BG ####[facility] Svshijhpji163[address] [place], [place] [address]Dr. Donna Malone HCO3 (Bld) [Moles/Vol] 22.4 mmol/L Normal 22.0-26.0 T [facility] Comment on above: Performed By: #### A BG ####[facility] Lkloviubuo[address] [place] [address]Dr. Donna Malone LPM [facility] Comment on above: Performed By: #### A BG ####[facility] Mpryhrpadd7995[address] [place], [place] [address]Dr. Donna Malone MINUTE VOLUME Normal [facility] Comment on above: Performed By: #### A BG ####[facility] Jhlovsduqh1689[address] [place], [place] [address]Dr. Donna Malone Oxygen (Bld) [Partial pressure] 77.6 mm[Hg] Critically low 80.0-100.0 [facility] Comment on above: Performed By: #### A BG ####[facility] Umhypjufnm4525[address] [place], [place] [address]Dr. Donna Malone Oxygen saturation in Blood 95.5 % Normal 95.0-100.0 [facility] Comment on above: Performed By: #### A BG ####[facility] Zgkdorhien398[address] [place], [place] [address]Dr. Donna Malone PCO2 40.8 mmHg Normal 35.0-45.0 [facility] Comment on above: Performed By: #### A BG ####[facility] Ofgktiywfp8808[address] [place], [place] [address]Dr. Donna Malone PEEP [facility] Comment on above: Performed By: #### A BG ####[facility] Kvsidjpgie4715[address] [place], [place] [address]Dr. Donna Malone pH (Bld) 7.359 [pH] Normal 7.350-7.45 0 [facility] Comment on above: Performed By: #### A BG ####[facility] Todsdwtviu4489[address] [place], [place] [address]Dr. Donna Malone PIP [facility] Comment on above: Performed By: #### A BG ####[facility] Xtjpnpvmdk15[address] [place], [place] [address]Dr. Donna Malone PS [facility] Comment on above: Performed By: #### A BG ####[facility] Iytfbxwtoq6635 [place] [address]Dr. Donna Malone PUNCTURE SITE RR Normal [facility] Comment on above: Performed By: #### A BG ####[facility] Paupwtsqnp5312 [place] [address]Dr. Donna Malone RATE Normal [facility] Comment on above: Performed By: #### A BG ####[facility] Zbqcmyofhq8576 [place] [address]Dr. Donna Malone VENT MODE [facility] Comment on above: Performed By: #### A BG ####[facility] Wgyhwaanma9740 [place] [address]Dr. Donna Malone VT [facility] Comment on above: Performed By: #### A BG ####[facility] Cmnircntcp18[address] [place] [address]Dr. Donna Malone BNPon 05-13-2022 Natriuretic peptide B (Bld) [Mass/Vol] 156.0 pg/mL Normal <=900.0 [facility] Comment on above: Performed By: #### C MP, CMADM, BNP ####[facility] Dcjljeyqpo0834 [place] [address]Dr. Donna Malone CARDIAC MJ ADMITon 022 CK [Catalytic activity/Vol] 119 U/L Normal 39-308 [facility] Comment on above: Performed By: #### C MP, CMADM, BNP ####[facility] Onilpoxqbr2597 [place] [address]Dr. Donna Malone CK.MB [Mass/Vol] 1.27 ng/mL Normal <=3.60 [facility] Comment on above: Performed By: #### C MP, CMADM, BNP ####[facility] Gshatpkyqz1469[address] [place], [place] [address]Dr. Rubyyvan Malone HSTROP 7.9 pg/mL Normal 4.0-76.1 [facility] Comment on above: Result Comment: CUT- OFF POINTS HAVE BEEN ESTABLISHED BASED ON THE FOURTH UNIVERSAL DEFINITIONS OF MYOCARDIALINFARCTION. THE UPPER REFERENCE LIMIT (URL) OF TROPONIN, DEFINED THE 99TH PERCENTILE OFcTnI DISTRIBUTION IN A REFERENCE POPULATION, HAS BEEN CONFIRMED THE DECISION THRESHOLDFOR IA DIAGNOSIS. Performed By: #### C MP, CMADM, BNP ####[facility] Tljdvtfqat8995 [place] [address]Dr. Donna Malone BINDU 111 ng/mL Critically high 16-96 [facility] Comment on above: Performed By: #### C MP, CMADM, BNP ####[facility] Khxjayjiiz8618 [place] [address]Dr. Rubyyvan Malone CBC AUTO DIFFon 05-13-2022 BASO # 0.1 103/ul Normal 0.0-0.1 [facility] Comment on above: Performed By: #### C BC ####[facility] Iaxaalpxvz264[address] [place], [place] [address]Dr. Donna Malone Basophils/100 WBC (Bld) 0.8 % Normal 0.2-2.0 [facility] Comment on above: Performed By: #### C BC ####[facility] Vuqwxbcbwl6186[address] [place], [place] [address]Dr. Donna Malone EO # 0.1 103/ul Normal 0.0-0.7 [facility] Comment on above: Performed By: #### C BC ####[facility] Xeimeiafnj325[address] [place], [place] [address]Dr. Donna Malone Eosinophils/100 WBC (Bld) 1.8 % Normal 0.9-7.0 [facility] Comment on above: Performed By: #### C BC ####[facility] Xzdeacgzzk505[address] [place], [place] [address]Dr. Donna Malone Erythrocyte distribution width (RBC) [Ratio] 14.7 % Normal 11.0-15.0 [facility] Comment on above: Performed By: #### C BC ####[facility] Zuhgatjmqk2734[address] [place], [place] [address]Dr. Donna Malone Hematocrit (Bld) [Volume fraction] 38.2 % Critically low 42.0-54.0 [facility] Comment on above: Performed By: #### C BC ####[facility] Urgcumazqe1136 [place] [address]Dr. Donna Malone Hemoglobin (Bld) [Mass/Vol] 12.7 g/dL Critically low 14.0-18.0 [facility] Comment on above: Performed By: #### C BC ####[facility] Ytzhueqlht0263 [place] [address]Dr. Donna Malone IG # 0.03 10e3/ul Normal 0.00-0.03 [facility] Comment on above: Performed By: #### C BC ####[facility] Wyodjmsldo1547 [place] [address]Dr. Donna Malone IG % 0.4 % Normal 0.0-0.5 [facility] Comment on above: Performed By: #### C BC ####[facility] Eiemzftuak416[address] [place], [place] [address]Dr. Donna Malone LYMPH # 1.6 103/ul Normal 1.2-3.8 [facility] Comment on above: Performed By: #### C BC ####[facility] Tpbfzitbah2747[address] [place], [place] [address]Dr. Donna Malnoe Lymphocytes/100 WBC (Bld) 22.8 % Normal 20.5-60.0 [facility] Comment on above: Performed By: #### C BC ####[facility] Rbpvnbajxb498[address] [place], [place] [address]Dr. Donna Malone MANUAL DIFF REQ NO Normal [facility] Comment on above: Performed By: #### C BC ####[facility] Qzxduvpfig2939[address] [place], [place] [address]Dr. Donna Malone MCH (RBC) [Entitic mass] 30.2 pg Normal 25.9-34.0 [facility] Comment on above: Performed By: #### C BC ####[facility] Ptcwxpdqkk2747[address] [place], [place] [address]Dr. Donna Faisal MCHC (RBC) [Mass/Vol] 33.2 g/dL Normal 29.9-35.2 [facility] Comment on above: Performed By: #### C BC ####[facility] Afhgxqmcfv3144[address] [place], [place] [address]Dr. Donna Faisal MCV (RBC) [Entitic vol] 91.0 fL Normal 80.0-94.0 [facility] Comment on above: Performed By: #### C BC ####[facility] Qfguixpjxy5929 [place] [address]Dr. Donna Malone MONO # 0.7 103/ul Normal 0.3-0.8 [facility] Comment on above: Performed By: #### C BC ####[facility] Dypfiowiqt4530[address] [place], [place] [address]Dr. Rubyyvan Malone Monocytes/100 WBC (Bld) 9.1 % Normal 1.7-12.0 [facility] Comment on above: Performed By: #### C BC ####[facility] Zgmujfsoix6056[address] [place], [place] [address]Dr. Donna Malone NEUT # 4.7 103/ul Normal 1.4-6.5 [facility] Comment on above: Performed By: #### C BC ####[facility] Nljafoarlg0980[address] [place], [place] [address]Dr. Rubyyvan Malone Neutrophils/100 WBC (Bld) 65.1 % Normal 43.0-75.0 [facility] Comment on above: Performed By: #### C BC ####[facility] Cdsvjjpedf0514[address] [place], [place] [address]Dr. Donna Malone Platelet mean volume (Bld) [Entitic vol] 11.8 fL Normal 9.5-13.5 [facility] Comment on above: Performed By: #### C BC ####[facility] Bisxojxmpc36[address] [place], [place] [address]Dr. Donna Malone PLT 179 103/ul Normal 150-450 [facility] Comment on above: Performed By: #### C BC ####[facility] Icpepovuql735[address] [place], [place] [address]DrElizabeth Malone RBC 4.20 106/ul Critically low 4.70-6.10 [facility] Comment on above: Performed By: #### C BC ####[facility] Xeyyjxdubc4874[address] [place], [place] [address]DrElizabeth Malone WBC 7.2 103/ul Normal 4.0-11.0 [facility] Comment on above: Performed By: #### C BC ####[facility] Loyjjurmhc[address] [place], [place] [address]Fn[address] STROKE HEAD WOon 05-13-[address] STROKE HEAD WO Normal [facility] Covid-19 PCR (CVDTB)on SARS-CoV-2 (COVID-19) RNA JOSÉ MIGUEL+probe Ql (Unsp spec) Not detected Normal NOT DETECTED [facility] Comment on above: Result Comment: When [...] for this test is supported by the [place] of [employer] and Human Service's declaration that [...] be used). Performed By: #### C VDTBH ####[facility] Zpbqwhhyoj1143 [place], [place] [address]OyElizabeth Malone DEPAKENE/VALPROICon 05-13-20 22 DEPAKENE 16.9 ug/ml Critically low 50.0-100.0 [facility] Comment on above: Performed By: #### V ALP ####[facility] Keabfoctqr0935 [place], [place] [address]NxElizabeth Malone DRUG SCREEN RAPID (URINE)on 05-13-2022 AMP Negative Normal NEGATIVE [facility] Comment on above: Performed By: #### D RUGRPD ####[facility] Uffexyucjj[address] [place], [place] [address]GzElizabeth Malone BAR Negative Normal NEGATIVE [facility] Comment on above: Performed By: #### D RUGRPD ####[facility] Ogpfihoujo45[address] [place] [id number]. Donna Malone BUP Negative Normal NEGATIVE [facility] Comment on above: Performed By: #### D RUGRPD ####[facility] Pjnakecfih2963 [place] [id number]. Donna Malone BZO Positive Abnormal NEGATIVE [facility] Comment on above: Performed By: #### D RUGRPD ####[facility] Fbhyuhxfgl8074 [place] [address]Dr. Donna Malone EVONNE Positive Abnormal NEGATIVE [facility] Comment on above: Performed By: #### D RUGRPD ####[facility] Bytihpwdtp69[address] [place], [place] [address]Dr. Donna Malone CUT-OFFS SEE BELOW Normal [facility] Comment on above: Result Comment: AMP (Amphetamine): 500ng/mL, BAR (Barbituates): 200 ng/mL, BZO (Benzodiazepines): 150 ng/mL, BUP (Buprenorphine): 10 ng/mL, EVONNE (Cocaine): 150 ng/mL, mAMP (Methamphetamine): 500 ng/mL, MTD (Methadone): 200 ng/mL, OPI (Opiates): 100 ng/mL, OXY (Oxycodone): 100 ng/mL, PCP (Phencyclidine): 25 ng/mL, PPX (Propoxyphene): 300 ng/mL, THC (Cannabinoids): 50 ng/mL, TCA (Trycyclic Antidepressants): 300 ng/mL Performed By: #### D RUGRPD ####[facility] Ihxstsqaje2255 [place] [id number]. Donna Malone DRUG CUT HEADER DRUG CLASS TEST SYST EM CUT-OFF CONCENTRATIONS ARE FOLLOWS: Normal [facility] Comment on above: Performed By: #### D RUGRPD ####[facility] Huqempoftv8[address] [place] [id number]. Donna Malone mAMP Negative Normal NEGATIVE [facility] Comment on above: Performed By: #### D RUGRPD ####[facility] Erwgtvtqfy75[address] [place] [address]Dr. Donna Malone MTD Negative Normal NEGATIVE [facility] Comment on above: Performed By: #### D RUGRPD ####[facility] Kadalxtamf[address] [place] [address]Dr. Donna Faisal OPI Positive Abnormal NEGATIVE [facility] Comment on above: Performed By: #### D RUGRPD ####[facility] Demqkrhnqv2862 [place] [address]Dr. Yiyvan Malone OXY Negative Normal NEGATIVE [facility] Comment on above: Performed By: #### D RUGRPD ####[facility] Kkjklkrkrf[address] [place], [place] [address]Dr. Rubyyvan Malone PCP Negative Normal NEGATIVE [facility] Comment on above: Performed By: #### D RUGRPD ####[facility] Ddczoudgbb34[address] [place], [place] [address]Dr. Rubyyvan Malone PPX Negative Normal NEGATIVE [facility] Comment on above: Performed By: #### D RUGRPD ####[facility] Gfvcukjqzh[address] [place], [place] [address]Dr. Donna Malone TCA Positive Abnormal NEGATIVE [facility] Comment on above: Performed By: #### D RUGRPD ####[facility] Fgvmzbtnwl0451 [place] [address]Dr. Donna Faisal THC Negative Normal NEGATIVE [facility] Comment on above: Performed By: #### D RUGRPD ####[facility] Wfivwphysb[address] [place], [place] [address]Dr. Donna Faisal ER URINE PROFILEon 2 Bilirubin Ql (U) MODERATE Abnormal NEGATIVE [facility] Comment on above: Performed By: #### E RUR ####[facility] Ncwciamtoj25[address] [place], [place] [address]Dr. Donna Malone Clarity (U) SL CLOUDY Abnormal CLEAR [facility] Comment on above: Performed By: #### E RUR ####[facility] Smyumydofq20[address] [place], [place] [address]Dr. Donna Malone Color (U) DK. YELLOW Normal YELLOW [facility] Comment on above: Performed By: #### E RUR ####[facility] Nhyvsukpai07[address] [place], [place] [address]Dr. Donna ARCE A micrscopic examina tion will be performed if indicated. Normal [facility] Comment on above: Performed By: #### E RUR ####[facility] Zgcntrrixk[address] [place], [place] [address]Dr. Donna Malone Glucose Ql (U) 250 mg/dl Abnormal NEGATIVE The [facility] Comment on above: Performed By: #### E RUR ####[facility] Tvkqhisd[address] [place], [place] [address]Dr. Donna Malone Hemoglobin Ql (U) Negative Normal NEGATIVE The [facility] Comment on above: Performed By: #### E RUR ####[facility] Vaajvkldzp[address] [place], [place] [address]Dr. Donna Malone Ketones Ql (U) TRACE Abnormal NEGATIVE The [facility] Comment on above: Performed By: #### E RUR ####[facility] Qwtdtlmofc[address] [place], [place] [address]Dr. Donna Malone LEUKOCYTES Negative Normal NEGATIVE The [facility] Comment on above: Performed By: #### E RUR ####[facility] Iaynvciyak[address] [place], [place] [address]Dr. Donna Malone Nitrite Ql (U) Negative Normal NEGATIVE The [facility] Comment on above: Performed By: #### E RUR ####[facility] Yxsycptofs[address] [place], [place] [address]Dr. Donna Malone pH (U) 5.5 [pH] Normal 5-9 The [facility] Comment on above: Performed By: #### E RUR ####[facility] Hlzbfwpcva[address] [place], [place] [address]Dr. Donna Malone SPEC GRAVITY >=1.030 Abnormal 1.005-<=1. 025 The [facility] Comment on above: Performed By: #### E RUR ####[facility] Jwks[address]awgq[address] [place], [place] [address]Dr. Donna Malone UA PROTEIN TRACE Normal NEGATIVE/ TRACE The [facility] Comment on above: Performed By: #### E RUR ####[facility] [address] [place] [address]Dr. Donna Malone UR MICRO IND NOT INDICATED Normal The [facility] Comment on above: Performed By: #### E RUR ####[facility] [address] [place] [address]Dr. Donna Malone Urobilinogen Qn (U) 1.0 {Jermain'U}/dL Normal 0.2 - 1. 0 [facility] Comment on above: Performed By: #### E RUR ####[facility] Kjx[address]yfog[address] [place], [place] [address]Dr. Donna Malone ETHANOL (BLD ALC)on 05-13-20 22 ALC NOTE NOTE: 80 mg/dl is th e legal limit for a blood alcohol level Normal [facility] Comment on above: Performed By: #### E TH ####[facility] Bqgjmhwn[address] [place], [place] [address]Dr. Rubyyvan Malone Ethanol [Mass/Vol] mg/dL Normal [facility] Comment on above: Performed By: #### E TH ####[facility] L[address]jhgymxt[address] [place], [place] [address]Dr. Donna Malone LACTATE/LACTIC ACIDon 2021 Lactate [Moles/Vol] 1.7 mmol/L Normal 0.4-1.9 [facility] Comment on above: Performed By: #### L ACT ####[facility] Anjsnzknep[address] [place], [place] [address]Dr. Donna Malone POINT OF CARE GLUCOSEon Glucose [Mass/Vol] 99 mg/dL Normal 74-106 [facility] Comment on above: Performed By: #### P OCGLUC ####[facility] Wltmvicspn9[address] [place], [place] [address]Dr. Donna Malone PROF 14(COMP METB)on 022 Albumin [Mass/Vol] 3.1 g/dL Critically low 3.4-5.0 e [facility] Comment on above: Performed By: #### C MP, CMADM, BNP ####[facility] [address] [place] [address]Dr. Donna Malone Albumin/Globulin [Mass ratio] 1.0 {ratio} Normal [facility] Comment on above: Performed By: #### C MP, CMADM, BNP ####[facility] [address] [place] [address]Dr. Donna Malone ALP [Catalytic activity/Vol] 37 U/L Critically low 46-116 [facility] Comment on above: Performed By: #### C MP, CMADM, BNP ####[facility] [address] [place] [address]Dr. Donna Malone ALT [Catalytic activity/Vol] 14 U/L Critically low 16-63 [facility] Comment on above: Performed By: #### C MP, CMADM, BNP ####[facility] [address] [place] [address]Dr. Donna Malone Anion gap [Moles/Vol] 12.3 mmol/L Normal [facility] Comment on above: Performed By: #### C MP, CMADM, BNP ####[facility] V[address]qljipt[address] [place], [place] [address]Dr. Donna Malone AST [Catalytic activity/Vol] 12 U/L Critically low 15-37 [facility] Comment on above: Performed By: #### C MP, CMADM, BNP ####[facility] [address]qh[address] [place] [address]Dr. Donna Malone Bilirubin [Mass/Vol] 0.4 mg/dL Normal 0.2-1.0 [facility] Comment on above: Performed By: #### C MP, CMADM, BNP ####[facility] T[address] [place] [address]Dr. Donna Malone Calcium [Mass/Vol] 7.8 mg/dL Critically low 8.5-10.1 [facility] Comment on above: Performed By: #### C MP, CMADM, BNP ####[facility] [address] [place] [address]Dr. Donna Malone Chloride [Moles/Vol] 108 mmol/L Critically high 98-107 The [facility] Comment on above: Performed By: #### C MP, CMADM, BNP ####[facility] [address]tmqol[address] [place] [address]Dr. Donna Malone CO2 [Moles/Vol] 24.8 mmol/L Normal 21.0-32.0 [facility] Comment on above: Performed By: #### C MP, CMADM, BNP ####[facility] Ood[address]maak[address] [place], [place] [address]Dr. Donna Malone Creatinine [Mass/Vol] 1.83 mg/dL Critically high 0.70-1.30 The [facility] Comment on above: Performed By: #### C MP, CMADM, BNP ####[facility] Ixcoehvspt[address] [place], [place] [address]Dr. Donna Malone EGFR-AF SAMOAN 45 mL/min/1.73m2 Critically low >=60 [facility] Comment on above: Performed By: #### C MP, CMADM, BNP ####[facility] Ykzybyrous[address] [place], [place] [address]Dr. Donna Malone EGFR-NON AF SAMOAN 37 mL/min/1.73m2 Critically low >=60 The [facility] Comment on above: Performed By: #### C MP, CMADM, BNP ####[facility] [address] [place] [address]Dr. Donna Malone Globulin (S) [Mass/Vol] 3.2 g/dL Normal [facility] Comment on above: Performed By: #### C MP, CMADM, BNP ####[facility] [address] [place] [address]Dr. Donna Malone Glucose [Mass/Vol] 202 mg/dL Critically high 74-106 [facility] Comment on above: Performed By: #### C MP, CMADM, BNP ####[facility] [address] [place] [address]Dr. Donna Malone Potassium [Moles/Vol] 4.1 mmol/L Normal 3.5-5.1 The [facility] Comment on above: Performed By: #### C MP, CMADM, BNP ####[facility] Orth[address]rgqe[address] [place] [address]Dr. Donna Malone Protein [Mass/Vol] 6.3 g/dL Critically low 6.4-8.2 Th e [facility] Comment on above: Performed By: #### C MP, CMADM, BNP ####[facility] [address] [place] [address]Dr. Donna Malone Sodium [Moles/Vol] 141 mmol/L Normal 136-145 [facility] Comment on above: Performed By: #### C MP, CMADM, BNP ####[facility] [address] [place] [address]Dr. Donna Malone Urea nitrogen [Mass/Vol] 32.0 mg/dL Critically high 7.0-18.0 [facility] Comment on above: Performed By: #### C MP, CMADM, BNP ####[facility] [address] [place] [address]Dr. Donna Malone Urea nitrogen/Creatinine [Mass ratio] 17.5 mg/mg Normal [facility] Comment on above: Performed By: #### C MP, CMADM, BNP ####[facility] [address] [place] [address]Dr. Donna Malone PROTIMEon 05-13-2022 INR Coag (PPP) [Relative time] 1.04 {INR} Normal The [facility] Comment on above: Performed By: #### P T, PTT ####[facility] Qgtchw[address] [place], [place] [address]Dr. Donna Malone INR GUIDELINES SEE BELOW Normal The [facility] Comment on above: Result Comment: FLORESITA RED INR: 2.0 - 3.0 CONDITIONS NOT LISTED BELOW 2.5 - 3.5 FOR PROSTHETIC HEART VALVE REPLACEMENT 2.5 - 3.5 RECURRENT THROMBOSIS Performed By: #### P T, PTT ####[facility] Fiykhnmxtu[address] [place], [place] [address]Dr. Donna Malone PT Coag (PPP) [Time] 11.2 s Normal 9.0-11.6 [facility] Comment on above: Performed By: #### P T, PTT ####[facility] [address] [place], [place] [address]Ax. Donna Malone PTTon 05-13-2022 aPTT Coag (Bld) [Time] 27.5 s Normal 22.3-36.2 Th e [facility] Comment on above: Performed By: #### P T, PTT ####[facility] [address] [place], [place] [address]Wp. Donna Malone XR CHEST 1 Von 05-13-2022 XR CHEST 1 V Normal [facility] Ambulatory Visit Summaryon 0 10-03-2021 Ambulatory Visit Summary ELEUTERIO SUN, TAYLOR Meehan :1955 Visit Date:10/03/2021 Ambulatory Visit Instructions Your Diagnosis Benign localized prostatic hyperplasia without lower urinary tract symptoms (LUTS) Nocturia Urge incontinence Post-void dribbling Your Care Team Attending Physician - Sharad Grossman MD, Lisandro Espinal Primary Care Physician - Genesis Reynolds MD This Is Your Medications List ciprofloxacin (Cipro 500 mg Tab) Contact prescribing physician if questions or concerns acetaminophen acetaminophen-hydrocodone (Bascom 5/325 Tab) amlodipine (amLODIPine 5 mg Tab) [...] Urology [address] [place] [address]- Medications What How Much When Instructions New ciprofloxacin (Cipro 500 mg Tab) 1 Tablets By Mouth Every day Take 1 tablet the day before the procedure and 1 tablet after the procedure Pickup at [facility] Unchanged acetaminophen 650 Milligram Every 4 hours Contact prescribing physician if questions or concerns Unchanged acetaminophen-hydrocodone (Bascom 5/ 325 Tab) 1 Tablets By Mouth [...] physician if questions or concerns Pharmacy Information [facility]: [address] [place], [place] [id number] [phone] (more content not included)... Normal [facility] Ambulatory Visit Summary TAYLOR MCCLELLAN SR :1955 [...] physician if questions or concerns acetaminophen acetaminophen-hydrocodone (Bascom 5/325 Tab) amlodipine (amLODIPine 5 mg Tab) [...] [facility] [address], [place] [address]- Medications What How Much When Instructions New ciprofloxacin (Cipro 500 mg Tab) 1 Tablets By Mouth Every day Take 1 tablet the day before the procedure and 1 tablet after the procedure Pickup at [facility] Unchanged acetaminophen 650 Milligram Every 4 hours Contact prescribing physician if questions or concerns Unchanged acetaminophen-hydrocodone (Bascom 5/ 325 Tab) 1 Tablets By Mouth [...] physician if questions or concerns Pharmacy Information [facility]: [address] [place] [place] [id number] [phone] (more content not included)... Normal [facility]cf Recordson 10-03 [facility] Records [id number] Normal [facility] Patient Educationon 10-03-19 Patient Education Urology Benign [...] Follow these instructions at home: ? Take zojq-fcb-jwirzgl and prescription medicines only as told by [...] included)... Normal [facility] Urology Office/Clinic Noteon 10-03-2021 Urology Office/Clinic Note Chief Complaint This is a 66 year old male in the [place] ER on 09/14/21. This patient has a [...] is here today to reestablish urologic care. [facility] Staff Pt. last seen in office 2018. S/P [facility] 10/30/18. Pt. was seen in the [facility] ER on 09/14/21 due to generalized [...] recently. Family was in the hospital at [place] where he had severe weakness. A Galindo [...] last seen in 2019. Patient was in [facility] 09/14/21 due to weakness and acute [...] included)... Normal [facility] Comment on above: Result Comment: Elec tronically Signed By: Lisandro Orourke Jr., MD\.br\Date and Time Signed: 10/03/21 12:37 EST\.br\Electronically Co-Signed By: Lisandra Arias\.br\Date and Time Co-Signed: 10/03/21 12:32 EST APTTon 10-13-2019 aPTT Coag (Bld) [Time] 34.9 s Normal 25.0-35.0 Th e [facility] Comment on above: Result Comment: ALL [...] THIS PURPOSE. Performed By: #### 5 6101, [address] #### [address] CREATININE BLOODon 0 Creatinine [Mass/Vol] 1.07 mg/dL Normal 0.70-1.30 The [facility] Comment on above: Performed By: #### 2 5656 #### [address] Creatinine [Mass/Vol] mg/dL Normal >60 The [facility] Comment on above: Performed By: #### 2 5656 #### [address] LUMBAR SPINE W CONTRASTon 10-13-2019 CT LUMBAR SPINE W CONTRAST [facility] Department of Radiology [address] [place] [id number] Patient Name: TAYLOR MCCLELLAN : 1955 Sex: M Age: Race: White Pt. Location: 84 Patient Status: O Ordered Date: 09/11/2019 2:50:00 PM Completed Date: 10/13/2019 11:37 AM Requesting Provider: JASEN HOWARD Attending Provider: JASEN HOWARD Report Copy To: LUI BRYSON Signs & Symptoms: M51.36 Other intervertebral disc degeneration, lumbar region I10 History: [place] Need Saturday appointment call [facility] [phone] [facility] auth# [id number] 09/16/19-10/15/19 cpt code 81890 *mla Comments: Exam: CT LUMBAR SPINE W [...] achievable Electronically signed: Fredy Salmeron. Transcribed by: [email or web address], User Resident: Electronically Signed by: FREDY SALMERON @ 10/13/2019 02:08 PM Normal The [facility] LUMBAR MYELOGRAMon 0 LUMBAR MYELOGRAM [facility] Department of Radiology [address] [place] [phone] Patient Name: TAYLOR MCCLELLAN : 1955 [...] risks are acceptable. Consent was obtained. Timeout: [place] protocol timeout verification performed. PROCEDURE: Estimated blood [...] detailed findings. Approved by:Kristine Singleton10/13/2019 10:58 AM. IFredy,have reviewed the imagers and reports Electronically signed: Fredy Salmeron. Transcribed by: [email or web address], User Resident: KRISTINE BALLARD Electronically Signed by: HARRYHALINA FAVIOLA @ 10/13/2019 06:58 PM I personally read this/these film(s) with this resident Normal The [facility] Comment on above: Order Comment: , , = ========= , Ordering Provider - JASEN HOWARD MD , PROTHROMBIN TIMEon 0 INR Coag (PPP) [Relative time] 1.05 {INR} Normal 0.91-1.16 The [facility] Comment on above: Result Comment: ACCC [...] RANGE. CHEST 1995;108:231S-246S. Performed By: #### 5 8161, 12[address] #### [facility] [address] [place] [address], [facility] PT Coag (PPP) [Time] 13.7 s Normal 12.3-14.8 The [facility] Comment on above: Result Comment: ALL RESULTS MUST BE INTERPRETED WITH RESPECT TO BLOOD DRAWING ARTIFACT OR DILUTION ERROR OF ANTICOAGULANT AT THE TIME OF SAMPLING. Performed By: #### 5 5055, 40243 #### [facility] [address] [place] [address], [facility] Laboratory Studieson 019 HBV surface Ab Ql (S) Non reactive F [facility] Work Phone: Comment on above: Non Reactive: Incons istent with immunity, less than 10 mIU/mL Reactive: Consistent with immunity, greater than 9.9 mIU/mL HBV surface Ag IA Ql Negative [facility] Work Phone: Comment on above: Performed at: - [employer] [id number] [employer]: Arnold Cabral PhD, Phone: [phone] HCV Ab Signal/Cutoff IA RelACnc 0.1 s/co ratio [facility] Work Phone: Hepatitis C Antibody Comment See comment [facility] Work Phone: Comment on above: Non reactive HCV ant ibody screen is consistent with no HCV infection, unless recent infection is suspected or other evidence exists to indicate HCV infection. HIV 1+2 Ab IA Ql Nonreactive [facility] Work Phone: Laboratory Studieson 018 Glucose mass conc Glu2: cleaned meter [facility] Work Phone: Glucose mass conc 121 mg/dL [facility] Work Phone: Comment on above: Random Glucose Refer ence Range is dependent on time and content of last meal. Glucose of more than 200 mg/dL in a nonstressed, ambulatory subject supports the diagnosis of Diabetes Mellitus. Calcium mass conc 8.7 mg/dL 8.2-10.2 [facility] Work Phone: Chloride molar conc 102 mmol/L 95-114 [facility] Work Phone: CO2 molar conc 27.5 mmol/L 22.0-30.0 [facility] Work Phone: Creatinine mass conc 1.08 mg/dL 0.64-1.[address] [facility] Work Phone: GFR/1.73 sq M predicted among blacks MDRD vol rate/area (S/P/Bld) mL/min/{1.73_m2} [facility] Work Phone: Comment on above: GFR estimated refere nce range: According to KDOQI guidelines, <60 ml/min/1.73m2 is sufficient to diagnose a patient with chronic kidney disease. GFR/1.73 sq M predicted among non-blacks MDRD vol rate/area (S/P/Bld) mL/min/{1.73_m2} [facility] Work Phone: Glucose mass conc 86 mg/dL 70-100 [facility] Work Phone: Comment on above: ADA recommended refe rence range Random Glucose Reference Range is dependent on time and content of last meal. Glucose of more than 200 mg/dL in a nonstressed, ambulatory subject supports the diagnosis of Diabetes Mellitus. Pharmacy Creatinine Clearance (Chem 88.1842 [facility] Work Phone: Potassium molar conc 3.5 mmol/L 3.5-5.[address] [facility] Work Phone: Sodium molar conc 139 mmol/L 136-146 [facility] Work Phone: Urea nitrogen mass conc 10 mg/dL 9-23 [facility] Work Phone: Laboratory Studieson 02-11- 018 Basophils #/vol (Bld) 0.1 10*3/uL 0.0-0.2 [facility] Work Phone: Basophils/100 WBC (Bld) 1.0 % [facility] Work Phone: Eosinophils #/vol (Bld) 0.2 10*3/uL 0.0-0.45 [facility] Work Phone: Eosinophils/100 WBC (Bld) 2.8 % [facility] Work Phone: Erythrocyte distribution width Ratio (RBC) 13.9 % 12.0-14.8 [facility] Work Phone: Hematocrit Volume Fraction (Bld) 36.3 % Low 38.8-50.0 [facility] Work Phone: Hemoglobin mass conc (Bld) 12.5 g/dL Low 13.0-17.0 [facility] Work Phone: Lymphocytes #/vol (Bld) 1.6 10*3/uL 1.00-4.8 [facility] Work Phone: Lymphocytes/100 WBC (Bld) 23.7 % [facility] Work Phone: MCH Entitic mass (RBC) 28.9 pg 27.5-35.2 [facility] Work Phone: MCHC mass conc (RBC) 34.3 g/dL 32.5-35.[address] [facility] Work Phone: MCV Entitic volume (RBC) 84.4 fL 83.5-101 [facility] Work Phone: Monocytes #/vol (Bld) 0.4 10*3/uL 0.0-0.8 [facility] Work Phone: Monocytes/100 WBC (Bld) 6.7 % [facility] Work Phone: Neutrophils #/vol (Bld) 4.4 10*3/uL 1.8-7.7 [facility] Work Phone: Neutrophils/100 WBC (Bld) 65.8 % [facility] Work Phone: Platelet mean volume Entitic volume (Bld) 10.3 fL High 6.6-10.1 [facility] Work Phone: Platelets #/vol (Bld) 199 10*3/uL 150-450 [facility] Work Phone: RBC #/vol (Bld) 4.31 10*6/uL 3.90-5.60 [facility] Work Phone: WBC #/vol (Bld) 6.6 10*3/uL 4.1-10.5 [facility] Work Phone: Laboratory Studieson 018 Appearance Nom (U) Slightly cloudy Abnormal F [facility] Work Phone: Bacteria Auto Ql (U) None seen [facility] Work Phone: Bilirubin Ql (U) Negative [facility] Work Phone: Color Nom (U) Yellow [facility] Work Phone: Creatinine mass conc (U) 143.4 mg/dL [facility] Work Phone: Comment on above: No reference range e stablished Epithelial cells Auto #/area (Urine sed) Rare /HPF [facility] Work Phone: Glucose Automated test strip mass conc (U) Normal mg/dL [facility] Work Phone: Hemoglobin Automated test strip Ql (U) 1+ High [facility] Work Phone: Ketones mass conc (U) 1+ High [facility] Work Phone: Leukocyte esterase Automated test strip Ql (U) Negative [facility] Work Phone: Nitrite Automated test strip Ql (U) Negative [facility] Work Phone: pH (U) 5.5 [pH] 5.0-9.0 [facility] Work Phone: pH (U) [pH] 1.001-1.03 0 [facility] Work Phone: Protein mass conc (U) Negative [facility] Work Phone: RBC Auto #/area (Urine sed) 1-2 /HPF [facility] Work Phone: Sodium molar conc (U) 144.0 mmol/L F [facility] Work Phone: Comment on above: No reference range e stablished Urate crystals LM.HPF #/area (Urine sed) 3 /[HPF] [facility] Work Phone: Urobilinogen mass conc (U) Normal mg/dL [facility] Work Phone: WBC Auto #/area (Urine sed) None seen /HPF [facility] Work Phone: Albumin mass conc 2.7 g/dL Low 3.2-5.5 [facility] Work Phone: Albumin/Globulin mass ratio 0.8 {ratio} [facility] Work Phone: ALP enzyme act/vol 39 U/L 32-92 [facility] Work Phone: ALT No additional P-5'-P enzyme act/vol 14 U/L 10-60 [facility] Work Phone: AST enzyme act/vol 25 U/L 10-42 [facility] Work Phone: Bilirubin mass conc 0.6 mg/dL 0.3-1.2 [facility] Work Phone: Globulin mass conc (S) 3.6 g/dL [facility] Work Phone: Protein mass conc 6.3 g/dL 6.1-7.9 [facility] Work Phone: Laboratory Studieson 018 T3 free mass conc 3.28 pg/mL 2.50-3.90 [facility] Work Phone: T4 free mass conc 0.95 ng/dL 0.61-1.12 [facility] Work Phone: Amphetamines Ql (U) Negative [facility] Work Phone: Barbiturates Ql (U) Negative [facility] Work Phone: Benzodiazepines Ql (U) Positive High [facility] Work Phone: Cannabinoids Screen Ql (U) Negative [facility] [facility] Work Phone: Comment on above: These are unconfirme d results and should not be used for legal purposes. Drug Cut-Off Concentration: AMPH 1000 ng/mL EWA 200 ng/mL JOHN 200 ng/mL COCM 300 ng/mL OP 300 ng/mL PCP 25 ng/mL THC 20 ng/mL Cocaine Ql (U) Negative [facility] Work Phone: Opiates Ql (U) Positive High [facility] Work Phone: Phencyclidine Ql (U) Negative [facility] Work Phone: Ammonia mass conc (Unsp spec) 20 umol/L 11-35 [facility] Work Phone: Bilirubin.direct mass conc 0.2 mg/dL 0.0-0.4 [facility] Work Phone: Bilirubin.indirect mass conc 0.8 mg/dL [facility] Work Phone: Cobalamin (Vitamin B12) mass conc 365 pg/mL 180-914 [facility] Work Phone: Folate mass conc 12.4 ng/mL [facility] Work Phone: Comment on above: Folate reference ran ge: >5.9 ng/ml The WHO technical consultation on folate and vitamin b12 deficiencies has determined that folate concentrations less than 4 ng/ml are considered deficient. Magnesium molar conc (Unsp spec) 1.7 mg/dL 1.6-2.6 [facility] Work Phone: Thyrotropin Qn 0.20 uIU/mL Low 0.45-5.33 [facility] Work Phone: Comment on above: Revised TSH Assay This assay is standardized to the World Health Organization International Standard for human TSH. Please note Reference Intervals have changed. Laboratory Studieson 018 Casts LM Nom (Urine sed) N/A [facility] Work Phone: Epithelial cells.renal LM.HPF #/area (Urine sed) Rare /HPF [facility] Work Phone: Hyaline casts Auto #/vol (U) 20-49 /LPF High [facility] Work Phone: [phone] Lactate molar conc (U) 0.9 mmol/L [facility] Work Phone: CK enzyme act/vol 107 U/L 22-269 [facility] Work Phone: Phosphate mass conc 5.0 mg/dL High 2.5-4.6 [facility] Work Phone: Laboratory Studieson 017 Glucose mass conc 122 mg/dL [facility] Work Phone: Comment on above: RANDOM GLUCOSE REFER ENCE RANGE IS DEPENDENT ON TIME AND CONTENT OF LAST MEAL.GLUCOSE OF MORE THAN 200MG/DL IN A NONSTRESSED,AMBULATORY SUBJECT SUPPORTS THE DIAGNOSIS OF DIABETES MELLITUS. Laboratory Studieson 017 Basophils #/vol (Bld) 0.1 10*3/uL 0.0-0.2 [facility] Work Phone: Basophils/100 WBC (Bld) 0.9 % [facility] Work Phone: Calcium mass conc 8.6 mg/dL 8.2-10.2 [facility] Work Phone: Chloride molar conc 109 mmol/L 95-114 [facility] Work Phone: CK enzyme act/vol 355 U/L High 22-269 [facility] Work Phone: CO2 molar conc 19.5 mmol/L Low 22.0-30.0 [facility] Work Phone: Creatinine mass conc 0.99 mg/dL 0.64-1.[address] [facility] Work Phone: Eosinophils #/vol (Bld) 0.20 10*3/uL 0.0-0.45 [facility] Work Phone: Eosinophils/100 WBC (Bld) 3.3 % [facility] Work Phone: Erythrocyte distribution width Ratio (RBC) 13.8 % 12.0-14.8 [facility] Work Phone: Estimated GFR (Non- > 60 [facility] Work Phone: GFR/1.73 sq M.predicted MDRD (S/P/Bld) [Vol rate/Area] mL/min/{1.73_m2} [facility] Comment on above: GFR estimated refere nce range: According to KDOQI guidelines, <60 ml/min/1.73m2 is sufficient to diagnose a patient with chronic kidney disease. GFR/1.73 sq M.predicted MDRD vol rate/area mL/min/{1.73_m2} [facility] Work Phone: Comment on above: GFR estimated refere nce range: According to KDOQI guidelines, <60 ml/min/1.73m2 is sufficient to diagnose a patient with chronic kidney disease. Glucose mass conc 94 mg/dL 70-100 [facility] Work Phone: Comment on above: ADA RECOMMENDED REFE RENCE RANGE Hematocrit Volume Fraction (Bld) 41.5 % 38.8-50.0 [facility] Work Phone: Hemoglobin mass conc (Bld) 14.1 g/dL 13.0-17.0 [facility] Work Phone: Lymphocytes #/vol (Bld) 2.6 10*3/uL 1.00-4.8 [facility] Work Phone: Lymphocytes/100 WBC (Bld) 40.3 % [facility] Work Phone: MCH Entitic mass (RBC) 30.4 pg 27.5-35.2 [facility] Work Phone: MCHC mass conc (RBC) 34.1 g/dL 32.5-35.[address] [facility] Work Phone: MCV Entitic volume (RBC) 89.2 fL 83.5-101 [facility] Work Phone: Monocytes #/vol (Bld) 0.4 10*3/uL 0.0-0.8 [facility] Work Phone: Monocytes/100 WBC (Bld) 6.4 % [facility] Work Phone: Neutrophils #/vol (Bld) 3.1 10*3/uL 1.8-7.7 [facility] Work Phone: Neutrophils (%) (Auto) 49.1 % [facility] Work Phone: Neutrophils/100 WBC (Bld) 49.1 % [facility] Platelet mean volume Entitic volume (Bld) 10.7 fL High 6.6-10.1 [facility] Work Phone: Platelets #/vol (Bld) 160 10*3/uL 150-450 [facility] Work Phone: Potassium molar conc 3.4 mmol/L Low 3.5-5.[address] [facility] Work Phone: RBC #/vol (Bld) 4.65 10*6/uL 3.90-5.60 [facility] Work Phone: Sodium molar conc 138 mmol/L 136-146 [facility] Work Phone: Urea nitrogen mass conc 7 mg/dL Low 9-23 [facility] Work Phone: WBC #/vol (Bld) 6.4 10*3/uL 4.1-10.5 [facility] Work Phone: Laboratory Studieson 017 Platelet Aggregation (ADP) 57.8 % 0-100 [facility] Work Phone: Comment on above: NO REFERENCE RANGE I S ESTABLISHED OR APPLICABLE Platelet Inhibition ADP 42.2 % 0-100 [facility] Work Phone: Comment on above: NO REFERENCE RANGE I S ESTABLISHED OR APPLICABLE TEG Max Amplitude (Citrated) 69.9 mm 50-70 [facility] Work Phone: TEG Max Amplitude (Rapid) 29.9 0-90 [facility] Work Phone: Comment on above: TEG MA A HAS NO REFE RENCE RANGE Thrombelastograph (TEG) Net G ADP 53.0 MM 0-90 [facility] Work Phone: Comment on above: TEG MA ADP HAS NO RE FERENCE RANGE Albumin mass conc 3.1 g/dL Low 3.2-5.5 [facility] Work Phone: Albumin/Globulin mass ratio 1.0 {ratio} [facility] Work Phone: ALP enzyme act/vol 44 U/L 32-92 [facility] Work Phone: ALT enzyme act/vol 18 U/L 10-60 [facility] Work Phone: AST enzyme act/vol 27 U/L 10-42 [facility] Work Phone: Bilirubin Ql (U) 0.6 mg/dL 0.3-1.2 [facility] Work Phone: Bilirubin.direct mass conc 0.1 mg/dL 0.0-0.4 [facility] Work Phone: Bilirubin.indirect mass conc (Body fld) 0.5 mg/dL [facility] Work Phone: Cholesterol in HDL mass conc 26 mg/dL Low 29-71 [facility] Work Phone: Comment on above: HDL CHOL ATP-III CLA SSIFICATION Cardiovascular Risk HDL > or equal to 60 mg/dL Low HDL < 40 mg/dL High Cholesterol mass conc 150 mg/dL 140-200 [facility] Work Phone: Comment on above: CHOL less than 200 m g/dL Low risk CHOL 201-239 mg/dL Borderline risk CHOL 240 mg/dL and greater High risk Cholesterol mass conc 30 mg/dL [facility] Work Phone: Cholesterol.total/Chol esterol in HDL mass ratio 5.8 {ratio} [facility] Work Phone: Globulin mass conc (S) 3.2 g/dL [facility] Work Phone: LDL Cholesterol, Calculated 93 mg/dL 0-100 [facility] Work Phone: Comment on above: LDL ATP III CLASSIFI CATION LDL less than 100 mg/dL Optimal LDL 100-129 mg/dL Near or above optimal LDL 130-159 mg/dL Borderline high LDL 160-189 mg/dL High LDL greater than 189 mg/dL Very high Protein mass conc 6.3 g/dL 6.1-7.9 [facility] Work Phone: Thyrotropin Qn 1.12 uIU/mL 0.45-5.33 [facility] Work Phone: Comment on above: Revised TSH Assay This assay is standardized to the World Health Organization International Standard for human TSH. Please note Reference Intervals have changed. Triglyceride mass conc 153 mg/dL High 35-149 [facility] Work Phone: Comment on above: TRIG ATP III CLASSIF ICATION TRIG less than 150 mg/dL Normal TRIG 150-199 mg/dL Borderline high TRIG 200-500 mg/dL High TRIG greater than 500 mg/dL Very high Standard traceable to the Center for Disease Conrtrol and Prevention (CDC) test method. Laboratory Studieson 017 Glucose mass conc Glu2: cleaned meter [facility] Work Phone: Ammonia mass conc (P) 19 umol/L 11-35 [facility] Work Phone: Cobalamin (Vitamin B12) mass conc 202 pg/mL 180-914 [facility] Work Phone: Folate 10.7 ng/mL [facility] Work Phone: Comment on above: FOLATE REFERENCE RAN GE: >5.9 ng/mL The WHO Technical Consultation on folate and vitamin B12 deficiencies has determined that folate concentrations less than 4 ng/mL are considered deficient. Amphetamines Ql (U) Negative [facility] Work Phone: Appearance Nom (U) Clear [facility] Work Phone: Bacteria LM.HPF #/area (Urine sed) None seen [facility] Work Phone: Benzodiazepines Ql (U) Positive [facility] Work [facility]: Bilirubin Ql (U) Negative [facility] Work Phone: Cocaine Ql (U) Negative [facility] Work Phone: Color Nom (U) Yellow [facility] Work Phone: Epithelial cells.squamous LM.HPF #/area (Urine sed) 5-9 /hpf High [facility] Work Phone: Glucose mass conc (U) 250 mg/dL High [facility] Work Phone: Hyaline casts LM Ql (Urine sed) 0-8 /lpf [facility] Work Phone: Ketones Ql (U) Trace [facility] Work Phone: Leukocyte esterase Test strip Ql (U) Negative [facility] Work Phone: Nitrite Ql (U) Negative [facility] Work Phone: Opiates Ql (U) Negative [facility] Work Phone: pH (U) 5.0 [pH] 5.0-9.0 [facility] Work Phone: Phencyclidine Ql (U) Negative [facility] Work Phone: Protein Ql (U) Negative [facility] Work Phone: RBC #/vol (U) 50-100 /hpf [facility] Work Phone: Specific gravity Relative Density (U) 1.039 High 1.001-1.03 0 [facility] Work Phone: Urine Barbiturates Screen Negative [facility] Work Phone: Urine Collection Type Type [facility] Work Phone: Comment on above: CATHETERIZED Urine Drug Screen Comment See comment [facility] Work Phone: Comment on above: THESE ARE UNCONFIRME D RESULTS AND SHOULD NOT BE USED FOR LEGAL PURPOSES. DRUG CUT-OFF CONCENTRATION: AMPH 1000 ng/mL EWA 200 ng/mL JOHN 200 ng/mL COCM 300 ng/mL OP 300 ng/mL PCP 25 ng/mL THC 20 ng/mL Urine Marijuana (THC) Screen Negative [facility] Work Phone: Urine Occult Blood 3+ High [facility] Work Phone: Urine Transitional Epithelial Cells 3-4 /hpf High [facility] Work Phone: Urobilinogen Qn (U) Normal mg/dL [facility] Work Phone: WBC #/vol (U) 0-1 /hpf [facility] Work Phone: Bedside Ionized Calcium (Deepti) 1.22 mmol/L 1.12-1.32 [facility] Work Phone: Bedside Total CO2 23 mmol/L 23-29 [facility] Work Phone: Chloride molar conc 110.0 mmol/L High 98-109 [facility] Work Phone: Creatinine mass conc 1.2 mg/dL 0.6-1.[address] [facility] Work Phone: Comment on above: ER/ESD PHYSICIAN IS NOTIFIED/SHOWN ALL ISTAT RESULTS. CRITICAL VALUES MAY BE CONFIRMED BY LABORATORY TESTING IF DEEMED NESCESSARY BY ER ATTENDING DOCTOR Glucose mass conc 135 mg/dL High 70-105 [facility] Work Phone: Hematocrit Volume Fraction (Bld) 48.0 % 38.0-51.0 [facility] Work Phone: Hemoglobin mass conc (Bld) 16.3 g/dL 12.0-17.0 [facility] Work Phone: Potassium molar conc 4.7 mmol/L 3.5-4.[address] [facility] Work Phone: Sodium molar conc 144 mmol/L 138-146 [facility] Work Phone: Urea nitrogen mass conc 15 mg/dL 8-26 [facility] Work Phone: Amylase enzyme act/vol 39 U/L 28-100 [facility] Work Phone: CK.MB mass conc 9.5 ng/mL High 0.6-6.3 [facility] Work Phone: Creatine Kinase MB Relative Index 1.5 0.00-2.50 [facility] Work Phone: Ethyl Alcohol Level < 5 mg/dL [facility] Work Phone: Glucose mass conc 140 mg/dL High 70-100 [facility] Work Phone: Comment on above: RANDOM GLUCOSE REFER ENCE RANGE IS DEPENDENT ON TIME AND CONTENT OF LAST MEAL.GLUCOSE OF MORE THAN 200MG/DL IN A NONSTRESSED,AMBULATORY SUBJECT SUPPORTS THE DIAGNOSIS OF DIABETES MELLITUS. Lipase enzyme act/vol 22.0 U/L 22-51 [facility] Work Phone: Percent Ethyl Alcohol < 0.005 % [facility] Work Phone: Troponin I.cardiac mass conc ng/mL 0-0.02 [facility] Work Phone: Comment on above: [place] Cut off value > or equal to 0.03 ng/mL in conjunction with clinical conditions of myocardial infarction. (www.escardio.org/guidelines) Glucose mass conc 134 mg/dL [facility] Work Phone: Hemoglobin A1c/Hemoglobin.total mass fraction (Bld) 6.3 % High 4.3-5.6 [facility] Work Phone: Comment on above: Increased risk for d iabetes: 5.7 - 6.4 Diabetes: >6.4 Glycemic control for adults with diabetes: <7.0 Vital Signs Date Time Vital Sign Value Performing Clinician Facility 11-05-2022 14:30-0500 Diastolic blood pressure 72 mm[Hg] [address] Other [employer] Other 11-05-2022 14:30-0500 SaO2% (BldA) [Mass fraction] 97 % Benson Domingo Other [employer] Other 11-05-2022 14:30-0500 Systolic blood pressure 118 mm[Hg] [address] Other [employer] Other 10-18-2022 14:00-0500 Body weight 96.71 kg Benson Domingo Other [employer] Other 10-18-2022 14:00-0500 Diastolic blood pressure 64 mm[Hg] [address] Other [employer] Other 10-18-2022 14:00-0500 SaO2% (BldA) [Mass fraction] 98 % [address] Other [employer] Other 10-18-2022 14:00-0500 Systolic blood pressure 120 mm[Hg] [address] Other [employer] Other 07-20-2022 16:00-0500 Body temperature 97.4 [degF] MD Genesis Reynolds Work Phone: [facility] 07-20-2022 16:00-0500 Diastolic blood pressure 72 mm[Hg] MD Genesis Reynolds Work Phone: [facility] 07-20-2022 16:00-0500 Heart rate 61 /min MD Genesis Reynolds Work Phone: [facility] 07-20-2022 16:00-0500 Respiratory rate 16 /min MD Genesis Reynolds Work Phone: [facility] 07-20-2022 16:00-0500 SaO2% (BldA) [Mass fraction] 98 % MD Genesis Reynolds Work Phone: [facility] 07-20-2022 16:00-0500 Systolic blood pressure 159 mm[Hg] MD Genesis Reynolds Work Phone: [facility] 07-20-2022 06:00-0500 Body weight 95.3 kg MD Genesis Reynolds Work Phone: [facility] 07-18-2022 11:22-0500 Body height 177.8 cm MD Genesis Reynolds Work Phone: [facility] 07-17-2022 22:14-0500 Body height 177.8 cm MD Genesis Reynolds Work Phone: [facility] 07-17-2022 22:14-0500 Body temperature 97.5 [degF] MD Genesis Reynolds Work Phone: [facility] 07-17-2022 22:14-0500 Body weight 95.9 kg MD Genesis Reynolds Work Phone: [facility] 07-17-2022 22:14-0500 Diastolic blood pressure 87 mm[Hg] MD Genesis Reynolds Work Phone: [facility] 07-17-2022 22:14-0500 Heart rate 74 /min MD Genesis Reynolds Work Phone: [facility] 07-17-2022 22:14-0500 Respiratory rate 16 /min MD Genesis Reynolds Work Phone: [facility] 07-17-2022 22:14-0500 SaO2% (BldA) [Mass fraction] 99 % MD Genesis Reynolds Work Phone: [facility] 07-17-2022 22:14-0500 Systolic blood pressure 180 mm[Hg] MD Genesis Reynolds Work Phone: [facility] 02-13-2018 14:12-0400 Body Temperature 98 [degF] [facility] 02-13-2018 14:12-0400 BP Diastolic 74 mm[Hg] [facility] 02-13-2018 14:12-0400 BP Systolic 113 mm[Hg] Bro [facility] 02-13-2018 14:12-0400 Pulse Oximetry 95 % [facility] 02-13-2018 14:12-0400 Respiratory Rate 18 /min [facility] 02-11-2018 22:00-0400 Pulse (Heart Rate) 73 /min [facility] Highlighted row BMI (Body Mass Index) [facility] NEGATED: Highlighted row BMI (Body Mass Index) [facility]: Highlighted row Height Bro Sanford [facility] NEGATED: Highlighted row Height [facility] Encounters Encounter Date Encounter Type Care Provider Facility Start: 09-27-2024 End: 09-27-2024 Clinisync Result Encounter Vianey Zaldivar MD Work Phone: [facility] External [facility] Unsolicited Start: 09-27-2024 End: 09-27-2024 Clinisync Result Encounter Vianey Zaldivar MD Work Phone: [facility] External [facility] Unsolicited Start: 09-09-2024 End: 09-09-2024 ambulatory Genesis Valles jung [facility] Work Phone: Start: 09-09-2024 End: 09-09-2024 Departed Referred Genesis Reynolds MD Work Phone: [facility] Start: 06-24-2024 End: 06-25-2024 Refill Vianey Zaldivar MD Work Phone: [facility] Comment on above: Primary hypertension (CMS/HCC) (Primary Dx) Start: 05-04-2024 ambulatory [facility] Start: 04-30-2024 ambulatory [facility] Start: 04-29-2024 End: 05-04-2024 Emergency department patient visit [facility] Start: 03-26-2024 End: 03-26-2024 ambulatory [facility] Start: 02-25-2024 End: 02-25-20[facility] Start: 02-17-2024 End: 02-17-2024 ambulatory [facility] Start: 02-17-2024 End: 02-17-2024 Encounter for other preprocedural examination [facility] Start: 11-10-2023 End: 11-11-2023 ambulatory S[facility] Luc[facility] Start: 11-10-2023 End: 11-10-2023 Subsequent hospital visit by physician Bro Sanford MD Work Phone: [facility] Start: 04-26-2023 End: 04-27-[address] [facility] Start: 04-25-2023 End: 04-26-2023 Emergency department patient visit BRO SANFORD [facility] Start: 01-17-2023 End: 01-17-[address] GENESIS REYNOLDS . Facility:[facility] Start: 12-06-2022 End: 12-06-[address] [facility] [employer] Other Start: 12-06-[address] [facility] Start: 11-15-2022 End: 11-17-2022 Evaluation and management of inpatient DR GENESIS REYNOLDS . Facility:[facility] Start: 11-13-2022 End: 11-13-2022 ambulatory Benson Domingo Other [employer] Other Start: 11-13-2022 Telephone encounter Benson Domingo [facility] Start: 11-05-2022 End: 11-05-2022 ambulatory Benson Domingo Other [employer] Other Start: 11-05-2022 Office outpatient vi sit 15 minutes Benson Domingo [facility] Start: 11-01-2022 End: 11-01-2022 ambulatory MD Genesis Reynolds Work Phone: [facility] Work Phone: Start: 11-01-2022 End: 11-01-2022 Patient encounter procedure MD Genesis Reynolds Work Phone: [facility] Work Phone: Start: 10-26-2022 End: 10-27-[address] GENESIS REYNOLDS . Facility:[facility] Start: 10-25-2022 (PROC) PROCEDURE Benson Oliveros [facility] Start: 10-25-2022 End: 10-26-[address] GENESIS REYNOLDS . [employer] Other Start: 10-18-2022 End: 10-18-[address] Other [employer] Other Start: 10-18-2022 Office outpatient ne w [address] [facility] Start: 10-18-2022 Telephone encounter Benson Domingo [facility] Start: 08-22-2022 ambulatory Ms. Lilia Orourke Facility:[id number] Start: 08-10-2022 End: 08-10-[address] GENESIS REYNOLDS . Facility:[facility] Start: 08-04-2022 End: 08-04-[address] GENESIS REYNOLDS . Facility:[facility] Start: 07-20-2022 ambulatory Mourhaf Traboulssi Faci lity:[id number] Start: 07-19-2022 ambulatory Mourhaf Traboulssi Faci lity:[id number] Start: 07-18-2022 ambulatory Mourhaf Traboulssi Faci lity:[facility] Start: 07-17-2022 ambulatory Mourhaf Traboulssi Faci lity:[id number] Start: 07-17-2022 End: 07-20-2022 Evaluation and management of inpatient MD Genesis Reynolds Work Phone: [facility] Start: 07-17-2022 End: 07-20-2022 observation encounter MD Genesis Reynolds Work Phone: [facility] Work Phone: Start: 07-15-2022 End: 07-16-[address] GENESIS REYNOLDS . Facility:[facility] Start: 06-21-2022 End: 06-22-[address] GENESIS REYNOLDS . Facility:[facility] Start: 05-13-2022 End: 05-16-2022 Evaluation and management of inpatient DR GENESIS REYNOLDS . Facility:[facility] Start: 05-07-[address] GENESIS REYNOLDS . Facili ty:[facility] Start: 12-17-2019 Preoperative state MD Genesis Reynolds Work Phone: [facility] Start: 12-24-2018 End: 12-24-2018 Patient encounter procedure Bro Sanford [facility] Start: 02-08-2018 End: 02-13-2018 Evaluation and management of inpatient Bro Sanford [facility] Start: 01-12-2018 End: 01-17-2018 Evaluation and management of inpatient [facility] Start: 04-02-2017 End: 04-05-2017 Evaluation and management of inpatient Bro [facility] Start: 06-09-2006 End: 07-09-2006 Discharged Recurring Bro Sanford [facility] Start: 04-09-2006 End: 05-09-2006 Discharged Recurring Bro Sanford [facility] Start: 03-09-2006 End: 04-08-2006 Discharged Recurring Bro Sanford [facility] Start: 02-22-2006 End: 03-08-2006 Discharged Recurring Bro Sanford [facility] Start: 02-10-2006 End: 02-14-2006 Evaluation and management of inpatient [facility] Start: 05-10-2000 End: 06-08-2000 Discharged Recurring Bro Sanford [facility] Start: 04-09-2000 End: 05-09-2000 Discharged Recurring [facility] Start: 03-09-2000 End: 04-08-2000 Discharged Recurring Bro Sanford [facility] Start: 02-08-2000 End: 03-08-2000 Discharged Recurring Bro Sanford [facility] Start: 01-08-2000 End: 02-07-2000 Discharged Recurring Bro Sanford [facility] Start: 12-09-1999 End: 02-07-2000 Discharged Recurring Bro Sanford [facility] Start: 11-08-1999 End: 12-08-1999 [facility] Start: 10-10-1999 End: 11-07-1999 [facility] Start: 09-09-1999 End: 10-09-1999 [facility] Start: 08-09-1999 End: 10-09-1999 [facility] Start: 07-10-1999 End: 08-08-1999 [facility] Start: 06-26-1999 End: 07-09-1999 [facility] Start: 03-29-1998 End: 03-29-1998 Patient encounter procedure Bro [facility] Start: 02-24-1987 End: 02-28-1987 [facility] Start: 12-22-1986 End: 12-23-1986 Evaluation and management of inpatient Bro [facility] Procedures Date Procedure Procedure Detail Performing Clinician Start: 09-27-2024 ALL CBC WITH AUTO DIFF Vianey Zaldivar MD Work Phone: Start: 11-10-2023 Urnls dip stick/tabl et reagent auto microscopy Susan Uriostegui SWINGING CUT OFF SAW OPERATOR - DIRECTOR OF SOFTWARE DEVELOPMENT Work Phone: Start: 11-01-2022 X-ray of lumbar [...] - Tdap) DTaP/Tdap/Td vaccine (2 - Tdap) [facility] Start: 09-09-2024 Bacteria identified in Blood by Culture Blood Culture [facility] Start: 09-09-2024 [facility] Start: 05-10-2024 Influenza vaccination Influenza Vacc ine (#1) [facility] Start: 04-26-2024 Lipid panel Lipids [place] [employer] [facility] [employer] Start: 04-25-2024 GFR test (Diabetes, CKD 3-4, OR last GFR 15-59) GFR test (Diabetes, CKD 3-4, OR last GFR 15-59) [facility] Start: 08-05-2023 Annual Wellness Visi t (Medicare) Annual Wellness Visit (Medicare) [facility] Start: 05-10-2023 COVID-19 Vaccine ( season) COVID-19 Vaccine ( season) [facility] Start: 04-09-2023 Influenza vaccination Flu vaccine (# 1) [facility] Start: 07-20-2022 [facility] Start: 07-18-2022 Lipid panel [facility] Start: 07-17-[address] [facility] Start: 07-17-2022 Physical therapy procedure [facility] Start: 07-17-2022 Referral to pan shaker [facility] Start: 07-17-2022 Referral to occupational therapist [facility] Start: 07-17-2022 [facility] Start: 07-17-2022 [facility] Start: 11-29-2021 Pneumococcal Vaccine : 65+ Years (2 of 2 - PPSV23 or PCV20) Pneumococcal Vaccine: 65+ Years (2 of 2 - PPSV23 or PCV20) [facility] Start: 2021 Abdominal aortic aneurysm screening AAA screen [facility] Start: 01-24-2021 Pneumococcal 65+ yea rs Vaccine (2 - PPSV23 or PCV20) Pneumococcal 65+ years Vaccine (2 - PPSV23 or PCV20) [facility] Start: 2016 Respiratory Syncytia l Virus (RSV) or age 60 yrs+ (1 - 1-dose 60+ series) Respiratory Syncytial Virus (RSV) or age 60 yrs+ (1 - 1-dose 60+ series) [facility] Start: 2006 Screening for malign ant neoplasm of lung Low dose CT lung screening &/or counseling [facility] Start: 2006 Shingles vaccine (1 of 2) Shingles vaccine (1 of 2) [facility] Start: 2001 Screening for malign ant neoplasm of colon [facility] Start: 1974 Glaucoma screening Diabetic retinal exam [facility] Start: 1974 Hepatitis C screening Hepatitis C sc reen [facility] Start: 1974 Urine screening for protein Diabetic Alb to Cr ratio (uACR) test [facility] Start: 1968 Depression Screen Depression Screen [facility] Start: 1966 Diabetic foot examination Diabetic foot exam [facility] Start: 1966 Hemoglobin A1c measurement A1C test (Diabetic or Prediabetic) [facility] Start: 1956 Screening for malign ant neoplasm of colon [facility] Bacteria identified in Blood by Culture Blood Culture [facility] Blood culture for bacteria, including anaerobic screen Blood Culture [facility] End: 11-10-2023 Culture, Urine [facility] [employer] [facility] Work Phone: Comment on above: Once for 1 Occurrenc es starting 11/10/2023 until 11/10/2023 [facility] Work Phone: [facility] Immunizations Immunization Date Immunization Notes Care Provider Velma whitlock 06-23-2021 influenza virus vacc ine, unspecified formulation Vianey Zaldivar MD Work Phone: [facility] Healthcare Payers Date Payer Category Payer Medicare MEDICARE [id number] 2011 [facility] [id number] 2009 Unknown [id number] 1959 Medicare [id number] 1959 Unknown [id number] 1956 Unknown [id number] [id number] 9.2.593 1956 Unknown [id number] 2.16840.1.717488.3.57 9.2.593 1956 Unknown [id number] 2.16840.1.827043.3.57 9.2.593 1956 Unknown [id number] 2.16.840.1.619807.3.57 9.2.593 1956 Unknown [id number] 2.16.840.1.450278.3.57 9.2.593 1956 Unknown [id number] 2.16.840.1.209329.3.57 9.2.593 1956 Unknown [id number] 2.16.840.1.125139.3.57 9.2.593 1956 Unknown [id number] 2.16.840.1.416405.3.57 9.2.593 1956 Unknown [id number] 2.16.840.1.177984.3.57 9.2.593 1956 Unknown [id number] 2.16.840.1.530601.3.57 9.2.593 1956 Unknown [id number] 2.16.840.1.586255.3.57 9.2.356 1956 Unknown [id number] 2.16.840.1.301217.3.57 9.2.356 1956 Unknown [id number] 2.16.840.1.127338.3.57 9.2.356 1956 Unknown [id number] 2.16.840.1.780591.3.57 9.2.356 1956 Unknown [id number] 2.16.840.1.630685.3.57 9.2.356 1956 Unknown [id number] 2.16.840.1.996799.3.57 9.2.356 1956 Unknown [id number] 2.16.840.1.587523.3.57 9.2.173 1956 Unknown [id number] 2.16.840.1.057902.3.57 9.2.1286 1956 Unknown [id number] 2.16.840.1.463700.3.57 9.2.1286 1956 Unknown [id number] 2.16.840.1.645005.3.57 9.2.1286 1956 Unknown [id number] 2.16.840.1.481403.3.57 9.2.1286 Self-pay Unknown [facility] [employer] [id number] Social History Date Type Detail Facility Start: 07-17-2022 End: 07-18-2022 Tobacco smoking status NHIS Smoker (finding) [facility] Start: 1955 Sex Assigned At Male [facility] Start: 04-25-2023 Sex Assigned At [facility] [employer] Other Start: 12-26-2016 Tobacco smoking status OHIS Smokes tobacco daily [employer] History of tobacco use Cigarette Smoker B ON [employer] Start: 12-26-2016 End: 04-25-2023 Cigarettes smoked current (pack per day) - Reported 1.5 [employer] Start: 12-26-2016 Tobacco use and exposure Smokeless tobacco non-user [employer] Start: 04-25-2023 Alcohol intake Current non-drinker of alcohol (finding) [employer] Start: 1955 Sex Assigned At Not on file [employer] [facility] Start: 09-12-2024 Sex Male (finding) [facility] Medical Equipment Procedure Code Equipment Code Equipment Origin al Text Equipment Identifier Dates [id number] Start: 12-24-2018 End: 04-11-2019 Glucose test strips Start : 12-24-2018 End: 04-10-2019 Glucose test strips Start : 12-24-2018 End: 04-10-2019 Glucose test strips Start : 12-24-2018 End: 04-10-2019 Glucose test strips Start : 12-24-2018 End: 04-10-2019 Goals Date Patient Goal Desired Activity /State Functional Status Date Assessment Result Facility 07-20-2022 Functional status Patient at Baseline [facility] Work Phone: Mental Status Date Assessment Result Facility 07-20-2022 Cognitive function Cognitive Sta tus Patient at Baseline [facility] Work Phone: Clinical Notes 2018 to 06-25-2024 Telephone Encounter - Susan Uriostegui NP - 06/25/2024 5:07 PM EDTTelephone Encounter - Susan Uriostegui NP - 06/25/2024 5:07 PM EDT Note Date & Type Note Facility 06-25-2024 Telephone encount er Note Rx for losartan is sent. [facility] 06-25-2024 Miscellaneous Notes Formattin g of this note might be different from the original. Rx for losartan is sent. documented in this encounter [facility] 03-26-2024 Note [facility] Cardiology Clinic Note Chief Complaint: New patient here to establish care. Ref from Dr. Reynolds for abnormal stress test. 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 Stress test was ordered for [...] Coronary artery disease, PVD (peripheral vascular disease) ([facility]), and [facility]roke ([facility]). Surgical History He has a past surgical [...] Coronary angiography: Left (more content not included)... [facility] 02-25-2024 Note Patient: Taylor briceño Procedure Information Date/Time: 02/25/24 1030 Procedure: Coronary angiography (Left) - andrea Location: [facility] FOOD SAFETY SPECIALIST 3 / [facility] (Cath) Providers: Festus Castillo [...] consented to blood products. Additional Equipment Requests [facility] 02-17-2024 Note [facility] Cardiology Clinic Note Chief Complaint: New patient here to establish care. Ref from Dr. Reynolds for abnormal stress test. 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 Stress test was ordered for [...] catheterization. [place] the next 3 to 4 weeks; [...] antiplatelet therapy, moder (more content not included)... [facility] 11-05-2022 Evaluation note Encounter Date Diagnosis [...] (ICD-10 - G89.29) Follow up after procedure. [employer] Other 02-09-2023 Evaluation note* Encounter Date Diagnosis [...] cant remember who the surgeon was in [place]. He presents with his today, both the [...] negative findings were considered in medical decision-making. [employer] Other 11-11-2022 Discharge summary Author Sang Bauer [facility] July 20, 2022 6:39pm Note Date/Time July 20, 2022 3:04pm [facility] [address] [place] [address] Discharge Summary Signed Patient: Taylor Mcclellan SR MR#: [id number] : 1955 Acct:[id number] Age/Sex: 66 / M Adm Date: 2 Loc: Room: [address] [place] [address]: Sang Bauer MD Copies to: [...] affect Discharge Plan Discharge Plan Patient Disposition: Retirement Facility Activity: No Activity Restriction Diet: Low-Sodium [...] tablet 75 mg PO DAILY Discontinued hydrocodone-acetaminophen [Bascom] 5-325 mg tablet 1 tab PO BID PRN (Reason: Pain) Qty: 0 0RF Other Ambulatory Orders: DME Home Medical Equipment (Routine) Timeframe: [id number] Location: Determined by Patient Ordered By: Sang Bauer Follow Up: Lilia Hopper APRN [Nurse Practitioner] - 08/22/22 10:30 am Documented By: Sang Bauer MD 07/20/22 1500 Signed By: <Electronically signed by Sang Bauer MD> 07/20/22 267[address] [facility] Work Phone: 1(444) 233-848611-11-2022 Progress note Author Itzel Adams [facility] July 20, 2022 8:06am Note Date/Time July 20, 2022 8:06am [facility] [address] [place] [address] Cardiology Progress Note Signed Patient: Taylor Mcclellan MR#: [id number] : 1955 Acct:[id number] Age/Sex: 66 / M Adm Date: 2 Loc: Room: [address] [place] [address] Type: ADM INOo Attending Dr: Sang Bauer [...] it is a single-vessel bypass done in [place] record is not available patient and his cannot remember which hospital he had his surgery at. He does not follow with cardiology Qualifiers: Coronary Disease-Associated Artery/Lesion type: nez perce artery [place] vs. transplanted heart: nez perce heart Associated angina: without angina Qualified Code(s): I25.10 - 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 Code(s): I25.10 - 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 Status: Acute [...] 3. Stress test negative for ischemia or IA. Patient can be discharged home cardiac chew Documented By: Itzel Adams MD 07/20/22804 Signed By: <Electronically signed by MD Itzel Adams> 07/20/22805 [facility] Work Phone: 1(153) 460-759411-10-2022 Progress note Author Sang Bauer [facility] July 19, 2022 4:57pm Note Date/Time July 19, 2022 4:57pm [facility] [address] [place] [address] Hospitalist Progress Note Signed Patient: Taylor Mcclellan MR#: [id number] : 1955 Acct:[id number] Age/Sex: 66 / M Adm Date: 2 Loc: Room: [address] [place] [address] Type: ADM INOo Attending Dr: Sang Bauer [...] Insuln.Pen SUBCUT 07/17/23 21:59 Not Given TID.WM.HS [facility] Protocol Lamotrigine 100 mg 07/18/22 12:00 [...] <Electronically signed by Sang Bauer MD> 07/19/221656 [facility] Work Phone: 1(513) 578-107611-10-2022 Progress note Author Itzel Adams [facility] July 19, 2022 8:35am Note Date/Time July 19, 2022 8:35am [facility] [address] [place] [address] Cardiology Progress Note Signed Patient: Taylor Mcclellan MR#: [id number] : 1955 Acct:[id number] Age/Sex: 66 / M Adm Date: 2 Loc: Room: [address] [place] [address] Type: ADM INOo Attending Dr: Sang Bauer [...] it is a single-vessel bypass done in [place] record is not available patient and his cannot remember which hospital he had his surgery at. He does not follow with cardiology Qualifiers: Coronary Disease-Associated Artery/Lesion type: nez perce artery [place] vs. transplanted heart: nez perce heart Associated angina: without angina Qualified Code(s): I25.10 - 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 Code(s): I25.10 - 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 Status: Acute [...] <Electronically signed by MD Itzel Adams> 07/19/2235 [facility] Work Phone: 1(375) 937-985911-09-2022 Progress note Author Sang Bauer [facility] July 18, 2022 3:24pm Note Date/Time July 18, 2022 3 :24pm [facility] [address] [place] [address] Hospitalist Progress Note Signed Patient: Taylor Mcclellan SR MR#: [id number] : 1955 Acct:[id number] Age/Sex: 66 / M Adm Date: 2 Loc: Room: [address] [place] [address] Type: ADM INOo Attending Dr: Sang Bauer [...] Insuln.Pen SUBCUT 07/17/23 21:59 Not Given TID.WM.[facility] Protocol Lamotrigine 100 mg 07/18/22 12:00 [...] <Electronically signed by Sang Bauer MD> 07/18/22 [address] [facility] Work Phone: 1(470) 661-164711-09-2022 History and physical note Author Sang Bauer [facility] July 18, 2022 3:22pm Note Date/Time July 17, 2022 6 :41pm [facility] [address] [place] [address] Hospitalist H&P Signed Patient: Taylro Mcclellan SR MR#: [id number] : 1955 Acct:[id number] Age/Sex: 66 / M Adm Date: 2 Loc: Room: [address] [place] [address] Type: ADM INOo Attending Dr: Sang Bauer [...] at home. Reportedly patient was taken to [facility] couple days ago when he was [...] his live in a mobile home in [place]. Meds Medications and Allergies Allergies chlordiazepoxide [From [...] 07/17/22] hydrocodone 5 mg-acetaminophen 325 mg tablet (Bascom) 1 tab PO BID PRN Pain #0 [...] % (Auto) 29.5 % (.) 07/17/22 15:44 Hale % (Auto) 5.4 % (.) 07/17/22 15:44 Eos % (Auto) 0.7 % (.) 07/17/22 15:44 Baso % (Auto) 1.0 % (.) 07/17/22 15:44 Neut # (Auto) 4.9 x10E3/uL (1.8-7.7) 07/17/22 15:44 Lymph # (Auto) 2.3 x10E3/uL (1.00-4.8) 07/17/22 15:44 Hale # (Auto) 0.4 x10E3/uL (0.0-0.8) 07/17/22 15:44 [...] signed by Sang Bauer MD> 07/18/22 1520 [facility] Work Phone: [phone] Consult note Author Itzel Adams [facility] July 18, 2022 11:46am Note Date/Time July 18, 2022 1 1:43am [facility] [address] [place] [address] Cardiology Consult Note Signed Patient: Taylor Mcclellan MR#: [id number] : 1955 Acct:[id number] Age/Sex: 66 / M Adm Date: 2 Loc: Room: [address] [place] [address] Type: ADM INOo Attending Dr: Sang Bauer MD Copies to: MD Genesis Goetz MD Mourhaf A Traboulssi, MD~ Cardiology HPI History of Present Illness Consult Date: 07/18/22 Reason for Consult: Chest pain HPI: Mr. Mcclellan is a 66 year old male with known history of coronary artery disease and prior bypass surgery done in [place]. No records available. Patient report to have [...] his live in a mobile home in [place]. Meds Medications and Allergies Allergies chlordiazepoxide [From [...] 07/17/22] hydrocodone 5 mg-acetaminophen 325 mg tablet (Bascom) 1 tab PO BID PRN Pain #0 [...] x10E3/uL Lymph # (Auto) 2.3 (1.00-4.8) x10E3/uL Hale # (Auto) 0.4 (0.0-0.8) x10E3/uL Eos # [...] @ 100 mls/hr IV ONCE ONE Rx #:[id number] Oral 0 / 0 50 / 50 [...] it is a single-vessel bypass done in [place] record is not available patient and his cannot remember which hospital he had his surgery at. He does not follow with cardiology Qualifiers: Coronary Disease-Associated Artery/Lesion type: nez perce artery [place] vs. transplanted heart: nez perce heart Associated angina: without angina Qualified Code(s): I25.10 - 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 Code(s): I25.10 - 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 (3) Hx [...] signed by MD Itzel Adams> 07/18/22 1146 [facility] Work Phone: 1(667) 869-336211-08-2022 History and physical note Author Sang Bauer [facility] July 18, 2022 3:22pm Note Date/Time July 17, 2022 6 :41pm [facility] [address] [place] [address] Hospitalist H&P Signed Patient: Taylor Mcclellan SR MR#: [id number] : 1955 Acct:[id number] Age/Sex: 66 / M Adm Date: 2 Loc: 3T Room: [address] [place] [address] Type: ADM INOo Attending Dr: Sang Bauer [...] at home. Reportedly patient was taken to [facility] couple days ago when he was [...] his live in a mobile home in [place]. Meds Medications and Allergies Allergies chlordiazepoxide [From [...] 07/17/22] hydrocodone 5 mg-acetaminophen 325 mg tablet (Bascom) 1 tab PO BID PRN Pain #0 [...] % (Auto) 29.5 % (.) 07/17/22 15:44 Hale % (Auto) 5.4 % (.) 07/17/22 15:44 Eos % (Auto) 0.7 % (.) 07/17/22 15:44 Baso % (Auto) 1.0 % (.) 07/17/22 15:44 Neut # (Auto) 4.9 x10E3/uL (1.8-7.7) 07/17/22 15:44 Lymph # (Auto) 2.3 x10E3/uL (1.00-4.8) 07/17/22 15:44 Hale # (Auto) 0.4 x10E3/uL (0.0-0.8) 07/17/22 15:44 [...] signed by Sang Bauer MD> 07/18/22 1524 [facility] Work Phone: 1([phone]) [phone] Consult note Author Itzel Adams [facility] July 18, 2022 11:46am Note Date/Time July 18, 2022 1 1:43am [facility] [address] [place] [address] Cardiology Consult Note Signed Patient: Taylor Mcclellan SR MR#: [id number] : 1955 Acct:[id number] Age/Sex: 66 / M Adm Date: 2 Loc: Room: [address] [place] [address] Type: ADM INOo Attending Dr: Sang Bauer MD Copies to: MD Genesis Goetz MD Mourhaf A Traboulssi, MD~ Cardiology HPI History of Present Illness Consult Date: 07/18/22 Reason for Consult: Chest pain HPI: Mr. Mcclellan is a 66 year old male with known history of coronary artery disease and prior bypass surgery done in [place]. No records available. Patient report to have [...] his live in a mobile home in [place]. Meds Medications and Allergies Allergies chlordiazepoxide [From [...] 07/17/22] hydrocodone 5 mg-acetaminophen 325 mg tablet (Bascom) 1 tab PO BID PRN Pain #0 [...] x10E3/uL Lymph # (Auto) 2.3 (1.00-4.8) x10E3/uL Hale # (Auto) 0.4 (0.0-0.8) x10E3/uL Eos # [...] @ 100 mls/hr IV ONCE ONE Rx #:[id number] Oral 0 / 0 50 / 50 [...] it is a single-vessel bypass done in [place] record is not available patient and his cannot remember which hospital he had his surgery at. He does not follow with cardiology Qualifiers: Coronary Disease-Associated Artery/Lesion type: nez perce artery [place] vs. transplanted heart: nez perce heart Associated angina: without angina Qualified Code(s): I25.10 - 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 Code(s): I25.10 - 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 (3) Hx [...] signed by MD Itzel Adams> 07/18/22 1146 [facility] Work Phone: Discharge summary Author Sang [facility] July 20, 2022 6:39pm Note Date/Time July 20, 2022 3:04pm [facility] [address] [place] [address] Discharge Summary Signed Patient: Taylor Mcclellan MR#: [id number] : 1955 Acct:[id number] Age/Sex: 66 / M Adm Date: 2 Loc: 3T Room: [address] [place] [address]: Sang Bauer MD Copies to: [...] affect Discharge Plan Discharge Plan Patient Disposition: Retirement Facility Activity: No Activity Restriction Diet: Low-Sodium [...] tablet 75 mg PO DAILY Discontinued hydrocodone-acetaminophen [Bascom] 5-325 mg tablet 1 tab PO BID PRN (Reason: Pain) Qty: 0 0RF Other Ambulatory Orders: DME Home Medical Equipment (Routine) Timeframe: [id number] Location: Determined by Patient Ordered By: Sang Bauer Follow Up: Lilia Hopper APRN [Nurse Practitioner] - 08/22/22 10:30 am Documented By: Sang Bauer MD 07/20/22 150 Signed By: <Electronically signed by Sang Bauer MD> 07/20/22 1697 [facility] Work Phone: evaluation note* Diagnosis Onset Date Resolution Status Chest pain acute Coronary artery disease acut e Generalized weakness acute Hx of CABG acute Diabetes mellitus chronic HTN (hypertension) chronic [facility] Work Phone: Evaluation note* Diagnosis Onset Date Resolution Status Bipolar 1 disorder, depressed, severe acute Chest pain acute Coronary artery disease acut e Generalized weakness acute Hx of CABG acute Chronic back pain chronic Diabetes mellitus chronic HTN (hypertension) chronic [facility] Work Phone: Evzjpiugmo noteNo assessment information available [facility] Work Phone: evaluation noteNo InformationNort Audaster Other Evaluation note* Diagnosis Primary hypertension (CMS/HCC)- [...] Surgical History CABG Hospitalization History see above [employer] Other Hospital Discharge instructions Additional Instructions SNF TO MANAGE: PT/OT to eval and treat Monitor VS per protocol--HTN Monitor FSBS Maintain high risk fall precautions Care to be managed by [facility] Work Phone: Progress note Author Sang Bauer [facility] July 18, 2022 3:24pm Note Date/Time July 18, 2022 3 :24pm [facility] [address] [place] [address] Hospitalist Progress Note Signed Patient: Taylor Mcclellan SR MR#: [id number] : 1955 Acct:[id number] Age/Sex: 66 / M Adm Date: 2 Loc: Room: [address] [place] [address] Type: ADM INOo Attending Dr: Sang Bauer [...] 25 Mg Tablet PO 07/18/23 13:59 TID [facility] Insulin Aspart 0 units 07/17/22 22:00 07/18/22 11:48 Insulin Aspart 300 Units/3 Ml Insuln.Pen SUBCUT 07/17/23 21:59 Not Given TID.WM.HS [facility] Protocol Lamotrigine 100 mg 07/18/22 12:00 [...] <Electronically signed by Sang Bauer MD> 07/18/22 1525 [facility] Work Phone: Progress note Author Itzel Adams [facility] July 19, 2022 8:35am Note Date/Time July 19, 2022 8:35am [facility] [address] [place] [address] Cardiology Progress Note Signed Patient: Taylor Mcclellan SR MR#: [id number] : 1955 Acct:[id number] Age/Sex: 66 / M Adm Date: 2 Loc: Room: [address] [place] [address] Type: ADM INOo Attending Dr: Sang Bauer [...] it is a single-vessel bypass done in [place] record is not available patient and his cannot remember which hospital he had his surgery at. He does not follow with cardiology Qualifiers: Coronary Disease-Associated Artery/Lesion type: nez perce artery [place] vs. transplanted heart: nez perce heart Associated angina: without angina Qualified Code(s): I25.10 - 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 Code(s): I25.10 - 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 Status: Acute [...] <Electronically signed by MD Itzel Adams> 07/19/22834 [facility] Work Phone: Progress note Author Sang Bauer [facility] July 19, 2022 4:57pm Note Date/Time July 19, 2022 4:57pm [facility] [address] [place] [address] Hospitalist Progress Note Signed Patient: Taylor Mcclellan MR#: [id number] : 1955 Acct:[id number] Age/Sex: 66 / M Adm Date: 2 Loc: 3T Room: [address] [place] [address] Type: ADM INOo Attending Dr: Sang Bauer [...] Insuln.Pen SUBCUT 07/17/23 21:59 Not Given TID.WM.HS [facility] Protocol Lamotrigine 100 mg 07/18/22 12:00 [...] <Electronically signed by Sang Bauer MD> 07/19/221656 [facility] Work Phone: Progress note Author Itzel Adams [facility] July 20, 2022 8:06am Note Date/Time July 20, 2022 8:06am [facility] [address] [place] [address] Cardiology Progress Note Signed Patient: Taylor Mcclellan MR#: [id number] : 1955 Acct:[id number] Age/Sex: 66 / M Adm Date: 2 Loc: Room: [address] [place] [address] Type: ADM INOo Attending Dr: Sang Bauer [...] it is a single-vessel bypass done in [place] record is not available patient and his cannot remember which hospital he had his surgery at. He does not follow with cardiology Qualifiers: Coronary Disease-Associated Artery/Lesion type: nez perce artery [place] vs. transplanted heart: nez perce heart Associated angina: without angina Qualified Code(s): I25.10 - 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 Code(s): I25.10 - 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 Status: Acute [...] 3. Stress test negative for ischemia or IA. Patient can be discharged home cardiac chew Documented By: Itzel Adams MD 07/20/22804 Signed By: <Electronically signed by MD Itzel Adams> 07/20/22805 [facility] Work Phone: Summary Purpose Family History Relationship Condition Age at Onset Recorded Date/[place] Not Specified Cardiac disease Unknown Epilepsy Unknown brother Epilepsy Unknown Relationship Condition Age at Onset Recorded Date/[place] mother Cardiac disease Unknown Epilepsy Unknown brother Epilepsy Unknown father Unknown mother Unknown Advance Directives Advance Directive Response Recorded [...] section and content) DATE CREATED AUTHOR 10/15/2019 [facility] DATE CREATED AUTHOR AUTHOR'S ORGANIZ ATION 11/29/2021 [facility] DATE CREATED AUTHOR AUTHOR'S ORGANIZ ATION 01/21/2023 [facility] DATE CREATED AUTHOR AUTHOR'S ORGANIZ ATION 01/23/2023 [facility] DATE CREATED AUTHOR AUTHOR'S ORGANIZ ATION 11/11/2023 [facility] DATE CREATED AUTHOR AUTHOR'S ORGANIZ ATION 03/30/2024 [facility] DATE CREATED AUTHOR AUTHOR'S ORGANIZ ATION 05/06/2024 [facility] DATE CREATED AUTHOR AUTHOR'S ORGANIZ ATION 09/19/2024 [facility] Care Teams (unrecognized sec [...] Lilia Orourke APRN Other Provider Active Cinthia aRe MD Other Provider Active Ramón Ayala MD Other Provider Active Flavio Ramirez MD Other Provider Active Pily Winslow , [facility]- Other Provider Active Adelaide Leonardo MD Other Provider Active Team Status: Active Member Role Status Dates Genesis Reynolds MD Primary Care Provider Active Team Status: Inactive Member Role Status Dates Genesis Reynolds MD Primary Care Provider Active Segundo Huston MD Emergency Provider Active Sang Bauer MD Admit Provider, Attending Provider A ctmelissa Adams MD Referring Provider Active Team Status: Inactive Member Role Status Dates Genesis Reynolds MD Primary Care Provider Active Benson Lane MD Attending Provider Active 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 [employer] Relationship Specialty Start Date End Date Bro Sanford MD PCP - General Family Medicine 12/26/16 [employer] Relationship Specialty Start Date End Date Ebenezer Hopkins MD [address] [place] [address] PCP - General Psychiatry 04/26/23 Team Status: Inactive Member Role Status Dates Genesis Reynolds MD Attending Provider Active Sta rt: September 09, 2024 End: September 09, 2024 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 [employer] [facility]. provides no warranty or guarantee of the accuracy or completeness of information in this document.
[2024-09-28] MEDS: IPRATROPIUM/ALBUTEROL SULFATE 3 ML AMPUL.NEB IH (21:16)
[2024-09-28 21:23] LABS: Hematocrit 36.3 % (42.0-54.0); Hemoglobin 11.9 g/dL (14.0-18.0); Mean Corpuscular HGB Conc 32.8 g/dL (29.9-35.2); Mean Corpuscular Hemoglobin 30.5 pg (25.9-34.0); Mean Corpuscular Volume 93.1 fL (80.0-94.0); Mean Platelet Volume 12.4 fL (9.5-13.5); Platelet Count 171 10^3/uL (150-450); Red Cell Distribution Width 13.4 % (11.0-15.0); White Blood Count 4.4 10^3/uL (4.0-11.0)
[2024-09-28 21:32] LABS: Influenza Virus A Antigen Negative; Influenza Virus B Antigen Negative; Internal Control Within Normal Limits
[2024-09-28 21:33] LABS: Internal Control Within Normal Limits; Respiratory Syncytial Virus Not Detected (NOT DETECTE); SARS-CoV-2 Ag NEGATIVE (NEGATIVE)
[2024-09-28 21:47] LABS: Alanine Aminotransferase 22 U/L (16-63); Albumin Globulin Ratio 0.6; Albumin Level 2.7 g/dL (3.4-5.0); Alkaline Phosphatase 44 U/L (46-116); Aspartate Amino Transferase 23 U/L (15-37); BUN Creatinine Ratio 16.5; Bilirubin Total 0.5 mg/dL (0.2-1.0); Calcium 8.4 mg/dL (8.5-10.1); Carbon Dioxide 27.8 mmol/L (21.0-32.0); Chloride 105 mmol/L (98-107); Estimated GFR (African America 36 (>=60 mL/min/1.73m^2); Estimated GFR (Non-African Ame 29 (>=60 mL/min/1.73m^2); Globulin 4.3 g/dL; Glucose 177 mg/dL (74-106); Potassium 4.8 mmol/L (3.5-5.1); Sodium 142 mmol/L (136-145); Troponin I High Sensitivity 11.2 pg/mL (4.0-76.1)
[2024-09-28 22:02] LABS: Atypical Lymphocytes Abs Man 0.22; Band Neutrophils Absolute 0.5 10^3/uL (0.0-0.3); Lymphocytes Absolute Manual 0.44 10^3/uL (1.20-3.80); Monocytes Absolute Manual 0.39 10^3/uL (0.30-0.80); Segmented Neut Absolute Manual 2.86 10^3/uL (1.4-6.5)
[2024-09-28 22:03] LABS: Toxic Vacuolation 1+
--- NOTE | 2024-09-28 22:28 | CT_ITS ---
The [address] [address] Patient Name: TAYLOR MCCLELLAN MRN: [id number] date: 1955 Sex: M Assigned Patient Location: ER Current Patient Location: Accession/Order Number: [id number] Exam Date: 09/28/2024 23:20 Report Date: 09/29/2024 00:09 At the request of: MELVA JASON Procedure: CT chest wo con EXAM: CT CHEST WITHOUT CONTRAST HISTORY: There is a breath COMPARISON: 04/14/2024 CT chest without contrast TECHNIQUE: Multiple axial images are taken from the level the thyroid down to the upper abdomen without the use of IV contrast. Images were then reconstructed in the sagittal and coronal planes. This exam was performed according to our departmental dose-optimization program which includes use of Automated Exposure Control, adjustment of the mA and/or kV according to patient size and/or use of iterative reconstruction technique. FINDINGS: Evaluation limited due to lack of IV contrast. Lines and tubes: None. Lungs: Lungs are hyperexpanded with airspace opacities and air bronchograms demonstrated throughout bilateral lung marshall. Trachea/Main Bronchi: Well aerated. No intraluminal mass. Esophagus: Patulous. Pleura: No pneumothorax. No pneumomediastinum.. No effusion. Heart: Enlarged with coronary artery calcifications.. Aorta: Ascending aorta is aneurysmal at 40 mm. Pulmonary Artery: Normal in size. Further evaluation is limited due to lack of IV contrast. Lymph Nodes: Enlarged infracarinal lymph node demonstrated. Measures up to 16 mm in the short axis. Chest Wall: Normal. Thyroid: Normal. Osseous: Within normal limits for patient's age. Subdiaphragmatic: Subdiaphragmatic abdominal organs included in the [id number] demonstrate an enlarged liver with a small hiatal hernia. Splenule is demonstrated. Stomach is decompressed. CT/CT chest wo con IMPRESSION: 1. Bilateral pneumonia. Short-term follow-up after] therapy is recommended to exclude underlying nodule. 2. Hepatomegaly. 3. Mediastinal lymphadenopathy most likely due to pneumonia. 4. Small hiatal hernia. 5. Cardiomegaly with coronary artery disease Meghan Citation: Information used in this report was referenced from the following. Guidelines for Management of Incidental Pulmonary Nodules Detected on CT Images: From the Fleischner Society 2017 Radiology. 2017 [place];284(1):228-243. doi: 10.1148/radiol.[id number]. Epub 2016Nov 01. Electronically authenticated by: NOHEMY BANEGAS Date: 09/29/2024 00:09
[2024-09-28] MEDS: FUROSEMIDE 20 MG/2 ML VIAL IVP (22:44)
--- NOTE | 2024-09-28 22:46 | ED_ITS ---
HPI HPI - General Adult General Chief complaint: Fall Stated complaint: other Time Seen by Provider: 09/28/24 20:31 Source: patient Mode of arrival: ambulance Limitations: no limitations History of Present Illness HPI narrative: Patient presents from his residential by EMS for evaluation of a history of unwitnessed fall and altered mentation. He was positive for COVID 20 days ago at which time he was residing in an assisted living facility. A few days later he was moved over to the residential side. His CODE STATUS is DNR CC arrest. He was treated with Levaquin for pneumonia recently and has been off of the medication for at least 6 days. His significant medical illnesses include type 2 diabetes, hypertension, chronic kidney disease and he also has a history of cognitive communication deficit. Related Data Home Medications ?Medication ?Instructions ?Recorded ?Confirmed carvedilol 12.5 mg tablet (Coreg) 12.5 mg PO BID 03/14/23 09/28/24 clopidogrel 75 mg tablet 75 mg PO QDAY 03/14/23 09/28/24 mirtazapine 45 mg tablet 45 mg PO .QHS 11/05/23 09/28/24 cyclobenzaprine 10 mg tablet 10 mg PO TID 04/14/24 09/28/24 divalproex 500 mg tablet,delayed 500 mg PO Q12H 04/14/24 09/28/24 release ezetimibe 10 mg tablet 10 mg PO .qhs 04/14/24 09/28/24 famotidine 40 mg tablet 40 mg PO DAILY 04/14/24 09/28/24 gabapentin 600 mg tablet 600 mg PO QID 04/14/24 09/28/24 tamsulosin 0.4 mg capsule 0.4 mg PO .qhs 04/14/24 09/28/24 acetaminophen 500 mg capsule 500 mg PO TID 05/03/24 09/28/24 docusate sodium 100 mg capsule 100 mg PO .qod 05/03/24 09/10/24 multivitamin with folic acid 1 tab PO DAILY 05/03/24 09/28/24 aspirin 81 mg tablet,delayed 81 mg PO DAILY 05/21/24 09/28/24 release atorvastatin 80 mg tablet 80 mg PO DAILY 05/21/24 09/28/24 primidone 50 mg tablet 50 mg PO DAILY 05/21/24 09/28/24 triamcinolone acetonide 0.1 % 1 applic topical BID PRN rash 05/21/24 09/28/24 topical cream losartan 50 mg tablet 50 mg PO DAILY 09/10/24 09/28/24 nicotine 21 mg/24 hr daily 1 patch transdermal Q24H 09/10/24 09/28/24 transdermal patch nicotine 7 mg/24 hr daily 1 patch transdermal Q24H 09/10/24 09/10/24 transdermal patch Zofran sublingual TID PRN nausea and 09/28/24 vomiting docusate sodium 100 mg capsule 100 mg PO DAILY 09/28/24 09/28/24 (Col-Rite) guaifenesin 600 mg tablet, 600 mg PO BID PRN cough 09/28/24 09/28/24 extended release 12 hr (Mucinex) ipratropium bromide 0.02 % 2.5 ml inhalation QID PRN 09/28/24 09/28/24 solution for inhalation shortness of breath or wheezing Previous Rx's ?Medication ?Instructions ?Recorded celecoxib 200 mg capsule 200 mg PO DAILY #30 caps 03/15/23 albuterol sulfate 90 mcg/actuation 2 puff inhalation Q6H #8.5 grams 09/13/24 aerosol inhaler tramadol 100 mg tablet 100 mg PO Q6H PRN pain #120 tabs 09/13/24 Allergies Allergy/AdvReac Type Severity Reaction Status Date / Time amitriptyline Allergy Unknown Verified 09/28/24 21:17 citalopram Allergy Unknown Verified 09/28/24 21:17 fentanyl Allergy Unknown Verified 09/28/24 21:17 simvastatin (From Zocor) Allergy Unknown Verified 09/28/24 21:17 succinylcholine Allergy Unknown Verified 09/28/24 21:17 venlafaxine (From Effexor) Allergy Unknown Verified 09/28/24 21:17 Opioid HPI Opioid Management Most Recent Opioid Data: Last Pain Scale 0 09/12/24 10:23 09/12/24 Last Pain Intensity 0 09/12/24 10:23 09/12/24 Last ORT Total Score 0 09/10/24 02:58 09/10/24 Last ORT Risk Category Low Risk 09/10/24 02:58 09/10/24 Ur Phencyclidine Scrn Negative (NEGATIVE) 11/05/23 16:26 10/11 04/01 Review of Systems ROS Status of ROS unobtainable due to mental status PFSH [facility] Medical History Acute metabolic encephalopathy ?G93.41 - Metabolic encephalopathy (ICD-10) Dehydration ?E86.0 - Dehydration (ICD-10) Acute kidney injury superimposed on chronic kidney disease ?N17.9 - Acute kidney failure, unspecified (ICD-10) ?N18.9 - Chronic kidney disease, unspecified (ICD-10) Generalized weakness ?R53.1 - Weakness (ICD-10) Accidental fall ?W19.XXXA - Unspecified fall, initial encounter (ICD-10) COVID-19 ?U07.1 - COVID-19 (ICD-10) Pneumonia ?J18.9 - Pneumonia, unspecified organism (ICD-10) Seizure disorder ?G40.909 - Epilepsy, unspecified, not intractable, without status epilepticus (ICD-10) Altered mental status ?R41.82 - Altered mental status, unspecified (ICD-10) Weakness ?R53.1 - Weakness (ICD-10) Ambulatory dysfunction ?R26.2 - Difficulty in walking, not elsewhere classified (ICD-10) Fall ?W19.XXXA - Unspecified fall, initial encounter (ICD-10) Chronic low back pain with bilateral sciatica ?M54.41 - Lumbago with sciatica, right side (ICD-10) ?M54.42 - Lumbago with sciatica, left side (ICD-10) ?G89.29 - Other chronic pain (ICD-10) Altered mental status ?R41.82 - Altered mental status, unspecified (ICD-10) Chronic back pain ?M54.9 - Dorsalgia, unspecified (ICD-10) ?G89.29 - Other chronic pain (ICD-10) Orthostatic dizziness ?R42 - Dizziness and giddiness (ICD-10) Accidental fall ?W19.XXXA - Unspecified fall, initial encounter (ICD-10) CAD (coronary artery disease) ?I25.10 - Atherosclerotic heart disease of [place] coronary artery without angina pectoris (ICD-10) Back pain ?M54.9 - Dorsalgia, unspecified (ICD-10) 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 - Fusion of spine, lumbar region (ICD-10) High cholesterol ?E78.00 - Pure hypercholesterolemia, unspecified (ICD-10) Hypertension ?I10 - Essential (primary) hypertension (ICD-10) IDDM (insulin dependent diabetes mellitus) Restless leg syndrome ?G25.81 - Restless legs syndrome (ICD-10) Suicidal ideation ?R45.851 - Suicidal ideations (ICD-10) Sleep apnea ?G47.30 - Sleep apnea, unspecified (ICD-10) Anxiety ?F41.9 - Anxiety disorder, unspecified (ICD-10) Metabolic encephalopathy ?G93.41 - Metabolic encephalopathy (ICD-10) Depression ?F32.A - Depression, unspecified (ICD-10) Acute renal failure ?N17.9 - Acute kidney failure, unspecified (ICD-10) Altered mental status ?R41.82 - Altered mental status, unspecified (ICD-10) Surgical History S/P CABG (coronary artery bypass graft) ?Z95.1 - Presence of aortocoronary bypass graft (ICD-10) History of heart artery stent ?Z95.5 - Presence of coronary angioplasty implant and graft (ICD-10) Family History Mother Family history of myocardial infarction Social History Within the past year, how often did you have a drink containing alcohol: never Score interpretation: A score less than 4 is consistent with normal alcohol consumption. 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 Known occupational exposures/hazards: No Highest level of school completed/degree received: high school graduate Do you want help with school or training: No Are you now , , , , never or living with a partner: In a typical week, how many times do you talk on the telephone with family, friends, or neighbors: never How often do you get together with friends or relatives: never How often do you attend muslim or zoroastrianism services: never Do you belong to any clubs or organizations such as muslim groups unions, fraternal or athletic groups, or school groups: no Total score: 1 Score interpretation: A score of less than or equal to 1 indicates the most socially isolated. Little interest or pleasure in doing things: nearly every day Feeling down, depressed, or hopeless: several days Feel stressed/tense/nervous/anxious/difficulty sleeping: very much Life stressors: recent of family or friend Life stressor details: mother and step father a year ago Due to disability, difficulty making decisions: No Do you think of yourself as: straight/heterosexual Gender Identity: male Exam Narrative Exam Narrative: Upon arrival to the ED patient is unresponsive to verbal stimuli but responds by withdrawal or vocalizing to tactile stimuli. He is breathing spontaneously. His oxygen saturation is in the low 90s on supplemental oxygen. No sign of injuries noted in the head. Pupils are equal and reactive to light. Examination of the extremities does not reveal any obvious deformity. Lung sounds reveal scattered rales and he has noisy respirations. Heart has distant sounds with regular rate and rhythm. He is little tachycardic with a heart rate hovering around 110 beats a minute. Abdomen is not distended and is soft. He does not have unilateral swelling of the leg. Constitutional Vital Signs, click to edit/add: Last Vital Signs Temp 98.8 F 09/28/24 20:30 Pulse 120 H 09/29/24 00:20 Resp 23 H 09/29/24 00:20 BP 99/74 09/29/24 00:01 Pulse Ox 91 L 09/29/24 00:20 O2 Del Method Nasal Cannula 09/28/24 21:17 O2 Flow Rate 3 09/28/24 21:17 Course Vital Signs Vital signs: Vital Signs Temperature 98.8 F 09/28/24 20:30 Pulse Rate 108 H 09/28/24 20:30 Respiratory Rate 20 09/28/24 20:30 Blood Pressure 110/58 09/28/24 20:30 Pulse Oximetry 90 L 09/28/24 20:30 Oxygen Delivery Method Nasal Cannula 09/28/24 20:30 Oxygen Delivery Flow Rate 3 09/28/24 20:30 Temperature 98.8 F 09/28/24 20:30 Pulse Rate 120 H 09/29/24 00:20 Respiratory Rate 23 H 09/29/24 00:20 Blood Pressure 99/74 09/29/24 00:01 Pulse Oximetry 91 L 09/29/24 00:20 Oxygen Delivery Method Nasal Cannula 09/28/24 21:17 Oxygen Delivery Flow Rate 3 09/28/24 21:17 Medical Decision Making MDM Narrative Medical decision making narrative: The twelve-lead EKG shows sinus rhythm with a rate of 98 bpm with right bundle branch block pattern and left anterior fascicular block. There is no acute ST elevation. Blood work is significant for a fairly sudden worsening of his kidney function. Yesterday his BUN was 23 which is gone up to 37 today. His creatinine of 1.4 yesterday has gone up to 2.24 today. BNP is elevated at 1548. Chest x-ray suggests pulmonary edema although infiltrate cannot be ruled out. CT scan of the chest will be obtained to better appreciate the parenchyma. Patient has been given Lasix 20 mg IV for diuresis. CT scan of the brain does not show any bleed. CT scan cervical spine shows degenerative changes but no fracture. CT scan of the chest reports bilateral airspace disease consistent with pneumonia. Blood cultures are drawn. Lactate level is 2. Patient is started on IV Rocephin and Zithromax. Galindo catheter has been inserted because there was no urine output and he has put out a large amount of urine. His heart rate has jumped up into the 120 range. Because of concern about renal insufficiency and possible fluid overload patient will be bolused with large volumes of fluid. I am starting normal saline at 125 an hour. Findings are discussed with hosp italist OPERATING SYSTEM DESIGNER who is admitting him. Lab Data Labs: Lab Results 09/28/24 09/28/24 09/29/24 Range/Units 20:55 21:05 00:35 WBC 4.4 (4.0-11.0) 10^3/uL RBC 3.90 L (4.70-6.10) 10^6/uL Hgb 11.9 L (14.0-18.0) g/dL Hct 36.3 L (42.0-54.0) % MCV 93.1 (80.0-94.0) fL MCH 30.5 (25.9-34.0) pg MCHC 32.8 (29.9-35.2) g/dL RDW 13.4 (11.0-15.0) % Plt Count 171 (150-450) 10^3/uL MPV 12.4 (9.5-13.5) fL Seg Neuts % (Manual) 65.0 (43.0-75.0) Band Neutrophils % 12.0 H (0-5) % Lymphocytes % (Manual) 10.0 L (20.5-60.0) % Atypical Lymphs % (Man) 5.0 % Monocytes % (Manual) 9.0 (1.7-12.0) % Eosinophils % (Manual) 0.0 L (0.9-7.0) % Basophils % (Manual) 0.0 L (0.2-2.0) % Neutrophils # (Manual) 2.86 (1.4-6.5) 10^3/uL Band Neutrophils # 0.5 H (0.0-0.3) 10^3/uL Lymphocytes # (Manual) 0.44 L (1.20-3.80) 10^3/uL Abs Atypical Lymphs Man 0.22 Monocytes # (Manual) 0.39 (0.30-0.80) 10^3/uL Eosinophils # (Manual) 0.00 (0.00-0.70) 10^3/uL Basophils # (Manual) 0.00 (0.00-0.10) 10^3/uL Toxic Vacuolation 1+ Sodium 142 (136-145) mmol/L Potassium 4.8 (3.5-5.1) mmol/L Chloride 105 (98-107) mmol/L Carbon Dioxide 27.8 (21.0-32.0) mmol/L Anion Gap 14.0 BUN 37.0 H (7.0-18.0) mg/dL Creatinine 2.24 H (0.70-1.30) mg/dL Est GFR ( Amer) 36 L (>=60 mL/min/1.73m^2) Est GFR (Non-Af Amer) 29 L (>=60 mL/min/1.73m^2) BUN/Creatinine Ratio 16.5 Glucose 177 H (74-106) mg/dL Lactate 2.0 (0.4-2.0) mmol/L Calcium 8.4 L (8.5-10.1) mg/dL Total Bilirubin 0.5 (0.2-1.0) mg/dL AST 23 (15-37) U/L ALT 22 (16-63) U/L Alkaline Phosphatase 44 L (46-116) U/L Troponin I High Sens 11.2 (4.0-76.1) pg/mL NT-Pro-B Natriuret Pep 1548.0 H* (<=900.0) pg/mL Total Protein 7.0 (6.4-8.2) g/dL Albumin 2.7 L (3.4-5.0) g/dL Globulin 4.3 g/dL Albumin/Globulin Ratio 0.6 Influenza Type A Ag Negative Influenza Type B Ag Negative RSV Antigen Not detected (NOT DETECTE) SARS-CoV-2 Ag (CV2AG) Negative (NEGATIVE) Critical Care Time Critical Care Time Critical Care Time: Yes Total Critical Care Time: 30 Attestation: Time spent in assessing and reassessing the patient, reviewing his nursing Discharge Plan Discharge Chief Complaint: Fall Clinical Impression: Pneumonia Qualifiers: Pneumonia type: due to unspecified organism Laterality: bilateral Lung location: unspecified part of lung Qualified Code(s): J18.9 - Pneumonia, unspecified organism Patient Disposition: Admitted As Inpatient Time of Disposition Decision: :30
[2024-09-29] VITALS (149 sets, daily range): BP systolic 79–154; BP diastolic 42–89; PULSE 85–123; RESP 14; TEMP 36.8–39.2; O2SAT 87–100; BMI 29.8
[2024-09-29] MEDS: CEFTRIAXONE 1,000 MG in 0.9 % SODIUM CHLORIDE 50 ML 100 MG IV (01:00)
[2024-09-29] MEDS: 0.9 % SODIUM CHLORIDE 1,000 ML 125 ML IV (01:00)
--- OUTSIDE RECORDS SUMMARY | 2024-09-29 01:38 | XMS_ITS | CCD ---
Author Organization [facility] ion Partnership [facility] Care Team Providers Care Lead Clinical Research Coordinator Name Role Phone Bro Sanford Primary Care Physician Unavailab Lior Dow Attending Physician Unavailable MD Genesis Reynolds Primary Care Provider [phone] MD Segundo Huston Emergency Provider MD Jodie Bauerop Admit Provider MD Lizette Sang Attending Provider [phone] LEXIE Mckeon Other Provider Unavailable DO Lawrence Lee Other Provider MD Kaden Summers Other Provider MD Edinson Bustamante Other Provider MD Itzel Adams Other Provider MD Ramos Fraga Other Provider LILA Hopper Other Provider MD Cinthia Rae Other Provider MD Ramón Ayala Other Provider MD Flavio Ramirez Other Provider Goldy [facility] Pily Espinal Other Provider MD Adelaide Leonardo Other Provider MD Itzel Adams Referring Provider MD Genesis Reynolds Primary Care Provider [phone] Attending Provider [...] ., DR HURTADO Primary Care Unavailable AUBREY PONO Consulting Unavailable CLEVE, AUBREY Attending Unavailable AUBREY [...] Care Provider UnavailGenesis Horne MD Attending Provider [phone] Genesis Reynolds Attending Unavailable Hoy, Genesis M Admitting Unavailable Allergies Allergy Classification Reported Allergen(s) Allergy Type Date of Onset Reaction(s) Facility (7 sources) Amitriptyline; Translations: [Amitriptyline] Drug Allergy 05-18-20 14 Unknown Reaction [facility] (12 sources) atorvastatin; Translations: [atorvastatin] Drug Allergy 01-24-20 19 Unknown Reaction, Unknown [facility] (6 sources) chlordiazePOXIDE Drug Allergy 01-24-20 19 Unknown Reaction [facility] (6 sources) clidinium Drug Allergy 01-24-20 19 Unknown Reaction [facility] (16 sources) fentaNYL; Translations: [Fentanyl] Drug Allergy 12-27-19 17 Unknown Reaction, Unknown [facility] (9 sources) venlafaxine; Translations: [VENLAFAXINE] Drug Allergy 05-13-20 14 Other (See Comments) [facility] (4 sources) Citalopram; Translations: [Citalopram] Drug Allergy 01-11-20 21 Unknown Reaction [facility] (4 sources) Simvastatin Drug Allergy 07-17-20 22 Unknown Reaction [facility] (7 sources) Succinylcholine; Translations: [Succinylcholine] Drug Allergy 09-08-20 04 Unknown Reaction [facility] (7 sources) Amitriptyline; Translations: [Elavil] Drug Allergy 04-20-20 14 Unknown [facility] (7 sources) chlordiazePOXIDE / clidinium Drug Allergy 11-05-19 23 Unknown [facility] (7 sources) venlafaxine; Translations: [Effexor] Drug Allergy 04-06-20 14 Unknown [facility] (1 source) buPROPion Drug Allergy [facility] (1 source) Citalopram Drug Allergy 12-31-19 20 [facility] (1 source) mirabegron Drug Allergy [facility] (1 source) Simvastatin Drug Allergy [facility] (1 source) tiZANidine Drug Allergy [facility] (1 source) Amitriptyline Drug Allergy 05-18-20 14 [facility] Work Phone: (1 source) metFORMIN; Translations: [METFORMIN] [...] 11, 2018 11:00pm December 23, 2018 4:29pm [id number] 200 actuat albuterol 0.09 mg/actuat metered dose [...] daily as needed for pain Hydrocodone-Aceta minophen ([place]) 5-325 mg tablet Discontinued 1 TAB PO [...] Coronary arteriosclerosis; Translations: [Atherosclerotic heart disease of che[place]-na coronary artery without angina pectoris] Onset: 11-25-2014 [...] 12-26-2016 Chronic Other aftercare (1 source) Other usp (current) drug therapy; Translations: [OTH CORRECTION CURRENT DRUG THERAPY] Onset: 01-21-2023 Episodic Other aftercare (1 source) 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; Translations: [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/ANTIPLAT LETS] Onset: 12-20-2022 Episodic Other circulatory [...] Onset: 08-08-2022 Episodic Other aftercare (1 source) 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; Translations: [CORRECTION CURRENT USE OF ASPIRIN] Onset: 07-20-2022 Episodic [...] [Ratio] 13.6 % 11.0 - 15.0 % [facility] Hematocrit (Bld) [Volume fraction] 41.6 % Low 42.0 - 54.0 % [facility] Hemoglobin (Bld) [Mass/Vol] 13.7 g/dL Low 14.0 - 18.0 g/dL [facility] Interpretation and review of laboratory results Abnormal [facility] MCH (RBC) [Entitic mass] 30.6 pg 25.9 - 34.0 pg [facility] MCHC (RBC) [Mass/Vol] 32.9 g/dL 29.9 - 35.2 g/dL [facility] MCV (RBC) [Entitic vol] 93.1 fL 80.0 - 94.0 fL [facility] Platelet mean volume (Bld) [Entitic vol] 12.3 fL 9.5 - 13.5 fL [facility] TBH PLT 207 [facility] TB RBC 4.47 Low [facility] TB WBC 5.8 [facility] Blood Cultureon 09-09-2024 Bacteria identified Cx [facility] (Bld) Gram Stain Gram Positive Cocci in [...] RESISTANT TO ALL B-LACTAM DRUGS. PERFORMED BY: [place] [address] PATHOLOGIST NETWORK FIELD ENGINEER MARC VELEZ M.D. [facility] Comment on above: Performed By: #### C UBLD #### [address] Office Visiton 03-26-2024 Follow-up visit [id number] Chacho Mcclellan ph J 1955 [facility] 03/26/2024 [facility] Family History Problem Relation Age of Onset No Known Problems Mother No Known Problems Father Family Status - Relation Status Age at Mother Father Level of Service:95230 [place] OFFICE/OUTPATIENT ESTABLISHED MOD MDM 30 MIN [facility] HPon 02-25-2024 H&P reviewed. The caroline hayes was examined and there are no changes to the H&P. [facility] NURSNOTEon 02-25-2024 [place] RN educated pt on d/ c instructions. RN encouraged pt to voice any questions or concerns. Pt verbalizes no questions or concerns at this time. Pt was wheeled off of unit with all of belongings. [facility] Orders Onlyon 02-20-2024 Orders Only [id number] Chacho Mcclellan ph J 1955 M Date Provider Department Center 02/20/2024 ReggieGoMeganBETHANIEZANDRA [facility] Family History Problem Relation Age of Onset No Known Problems Mother No Known Problems Father Family Status - Relation Status Age at Mother Father Normal [facility] HPon 02-17-2024 [facility] Cardiology Clinic Note Chief Complaint: New patient here to establish care. Ref from Dr. Reynolds for abnormal stress test. 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 Stress test was ordered for [...] catheterization. I will not be in the [employer] for the next 3 to 4 weeks; [...] (more content not included)... Normal [facility] Office Visiton 02-17-2024 Follow-up visit [id number] Chacho Mcclellan ph J 1955 M Date Provider Department Center 02/17/2024 Getachew-MITZY TOVAR NASRIN M[facility]arty Family History Problem Relation Age of Onset No Known Problems Mother No Known Problems Father Family Status - Relation Status Age at Mother Father Level of Service:04282 [place] OFFICE/OUTPATIENT NEW HIGH MDM 60 MINUTES Normal [facility] Orders Onlyon 02-17-2024 Orders Only [id number] Chacho Mcclellan ph J 1955 M Provider Department Center 02/17/2024 DIRK JARA CARD [facility] Family History Problem Relation Age of Onset No Known Problems Mother No Known Problems Father Family Status - Relation Status Age at Mother Father Normal [facility] Urinalysis w/ Microon 2023 Bacteria TRACE Abnormal NONE [facility] Comment on above: Performed By: #### U AMIC #### [facility] [address] [place] [address] [place] [address] Mat Man: Sarai Howell MD Bilirubin, SemiQt,Ur Negative Normal NEG [facility] Comment on above: Performed By: #### U AMIC #### [facility] [address] [place] [address] [place] [address] Mat Man: Sarai Howell MD Blood, Urine Negative Normal NEG [facility] Comment on above: Performed By: #### U AMIC #### [facility] [address] [place] [address] [place] [address] Mat Man: Sarai Howell MD Clarity (U) Clear Normal CLEAR [facility] Comment on above: Performed By: #### U AMIC #### [facility] [address] [place] [address] [place] [address] Mat Man: Sarai Howell MD Color (U) Yellow Normal YEL [facility] Comment on above: Performed By: #### U AMIC #### [facility] [address] [place], [place] [id number] Mat Man: Sarai Howell MD Epithelial cells LM Ql (Urine sed) 0 TO 2 Normal 0-5 [facility] Comment on above: Performed By: #### U AMIC #### [facility] [address] [place], [place] [id number] Mat Man: Sarai Howell MD Glucose Ql (U) Negative Normal NEG [facility] Comment on above: Performed By: #### U AMIC #### [facility] [address] [place] [address] Dr. [place], [place] [id number] Mat Man: Sarai Howell MD Ketones Ql (U) Negative Normal NEG [facility] Comment on above: Performed By: #### U AMIC #### [facility] [address] [place] [address] Dr[place], [place] 8782283 Mat Man: Sarai Howell MD Leukocyte esterase Test strip Ql (U) Negative Normal NEG [facility] Comment on above: Performed By: #### U AMIC #### [facility] [address] [place] [address] Dr[place], [place] [id number] Mat Man: Sarai Howell MD Mucus Strands TRACE Abnormal NONE [facility] Comment on above: Performed By: #### U AMIC #### [facility] [address] [place] [address] Dr[place], [place] 7392783 Mat Man: Sarai Howell MD Nitrite,Ur Negative Normal NEG [facility] Comment on above: Performed By: #### U AMIC #### [facility] [address] [place], [place] [id number] Mat Man: Sarai Howell MD PH,Ur 7.0 Normal 5.0-9.0 [facility] Comment on above: Performed By: #### U AMIC #### [facility] [address] [place], [place] [address]83 Mat Man: Sarai Howell MD Protein Ql (U) Negative Normal NEG [facility] Comment on above: Performed By: #### U AMIC #### [facility] [address] [place] [address] [place], [place] 4477683 Mat Man: Sarai Howell MD Spec. Organ,Ur 1.015 Normal 1.010-1.02 0 [facility] Comment on above: Performed By: #### U AMIC #### [address] [place], [place] [id number] Mat Man: Sarai Howell MD Urine RBC's 0 TO 2 Normal 0-2 [facility] Comment on above: Performed By: #### U AMIC #### [address] [place], [facility] Mat Man: Sarai Howell MD Urine WBC's 2 TO 5 Normal 0-5 [facility] Comment on above: Performed By: #### U AMIC #### [address] [place], [place] [id number] Mat Man: Sarai Howell MD Urobilinogen,Ur Normal Normal 0.0-1.0 [facility] Comment on above: Performed By: #### U AMIC #### [facility] [address] [place] [address] Dr. [place], [facility] Mat Man: Sarai Howell MD Urinalysis with Microscopico n 11-10-2023 Bacteria LM Ql (Urine sed) TRACE Abnormal None [facility] Bilirubin Ql (U) Negative NEGATIVE [facility] Clarity (U) Clear Clear [facility] Color (U) Yellow Yellow [facility] Epithelial cells LM.HPF (Urine sed) [#/Area] 0 TO 2 [facility] Glucose Test strip (U) [Mass/Vol] Negative NEGATIVE mg/dL [facility] Hemoglobin Auto test strip Ql (U) Negative NEGATIVE [facility] Interpretation and review of laboratory results Abnormal [facility] Ketones (U) [Mass/Vol] Negative NEGAT MELISSA mg/dL [facility] Leukocyte esterase Test strip Ql (U) Negative NEGATIVE [facility] Mucus Ql (Urine sed) TRACE Abnormal None [facility] Nitrite Ql (U) Negative NEGATIVE [facility] pH (U) 7.0 [pH] 5.0 - 9.0 [facility] Protein (U) [Mass/Vol] Negative NEGAT MELISSA mg/dL [facility] RBC LM.HPF (Urine sed) [#/Area] 0 TO 2 [facility] Specific gravity (U) [Rel density] 1.015 1.010 - 1.020 [facility] Urobilinogen Qn (U) Normal 0.0 - 1. 0 EU/dL [facility] WBC LM.HPF (Urine sed) [#/Area] 2 TO 5 [facility] Cult, Bloodon 04-30-2023 Cult, Blood Specimen Description .BLOOD Special Requests lhand, 9ml, 2 bottles Culture NO GROWTH 5 DAYS Report Status FINAL 04/30/2023 [facility] Comment on above: Performed By: #### B CUL2 #### [facility] [address] [place] [address] Mat Man: Sarai Howell MD Cult,[facility] 04-30-2023 Cult,Blood Specimen Description .BLOOD Special Requests LAC, 20ML Culture NO GROWTH 5 DAYS Report Status FINAL 04/30/2023 [facility] Comment on above: Performed By: #### B C #### [facility] [address] [place] [address] Mat Man: Sarai Howell MD Lipid Profileon 04-26-2023 Cholesterol [Mass/Vol] 171 mg/dL Normal <200 [facility] Comment on above: Result Comment: Cholesterol Guidelines: <200 Desirable 200-240 Borderline >240 Undesirable Performed By: #### L IPR #### [address] [address] Mat Man: Spencer Tapia MD Cholesterol in HDL [Mass/Vol] 30 mg/dL Low >40 [facility] Comment on above: Result Comment: HDL Guidelines: <40 Undesirable 40-59 Borderline >59 Desirable Performed By: #### L IPR #### [address] [address] Mat Man: Spencer Tapia MD Cholesterol in LDL [Mass/Vol] 112 mg/dL Normal 0-130 [facility] Comment on above: Result Comment: LDL Guidelines: <100 Desirable 100-129 Near to/above Desirable 130-159 Borderline >159 Undesirable Direct (measured) LDL and calculated LDL are not interchangeable tests. Performed By: #### L IPR #### [address] [address] Mat Man: Spencer Tapia MD Cholesterol.total/Chol esterol in HDL [Mass ratio] 5.7 {ratio} High <5 [facility] Comment on above: Performed By: #### L IPR #### [address] [address] Mat Man: Spencer Tapia MD Triglyceride [Mass/Vol] 143 mg/dL Normal <150 [facility] Comment on above: Result Comment: Triglyceride Guidelines: <150 Desirable 150-199 Borderline 200-499 High >499 Very high Based on AHA Guidelines for fasting triglyceride, June 2012. Performed By: #### L IPR #### [address] [address] Mat Man: Spencer Tapia MD Basic Metabolic Profon 04-25 Anion gap [Moles/Vol] 13 mmol/L Normal - [facility] Comment on above: Performed By: #### T DANAYI, CDP, BMP #### [facility] [address] [place] [address] Mat Man: Sarai Howell MD BUN/CRE Ratio 14 Normal 9-20 [facility] Comment on above: Performed By: #### ANJALI PRADHAN, BMP #### [facility] [address] [place] [address] Mat Man: Sarai Howell MD Calcium [Mass/Vol] 9.3 mg/dL Normal 8.6-10.4 [facility] Comment on above: Performed By: #### ANJALI PRADHAN, BMP #### [facility] [address] [place] [address] Mat Man: Sarai Howell MD Chloride [Moles/Vol] 101 mmol/L Normal 98-107 [facility] Comment on above: Performed By: #### ANJALI PRADHAN, BMP #### [facility] [address] [place] [address] [place] [address] Mat Man: Sarai Howell MD CO2 [Moles/Vol] 25 mmol/L Normal 20-31 [facility] Comment on above: Performed By: #### ANJALI PRADHAN, BMP #### [address] [place] [address] Mat Man: Sarai Howell MD Creatinine [Mass/Vol] 1.3 mg/dL High 0.7-1.2 [facility] Comment on above: Performed By: #### ANJALI PRADHAN, BMP #### [facility] [address] [place] [address] Mat Man: Sarai Howell MD GFR/1.73 sq M.predicted among non-blacks MDRD (S/P/Bld) [Vol rate/Area] mL/min/{1.73_m2} Normal >60 [facility] Comment on above: Result Comment: [...] Performed By: #### ANJALI PRADHAN, BMP #### [facility] [address] [place] [address] [place], [place] [id number] Mat Man: Sarai Howell MD Glucose [Mass/Vol] 87 mg/dL Normal 70-99 [facility] Comment on above: Performed By: #### ANJALI PRADHAN, BMP #### [address] [place] [address] Mat Man: Sarai Howell MD Potassium [Moles/Vol] 3.9 mmol/L Normal 3.7-5.3 [facility] Comment on above: Performed By: #### ANJALI PRADHAN, BMP #### [address] [place] [address] Mat Man: Sarai Howell MD Sodium [Moles/Vol] 139 mmol/L Normal 135-144 [facility] Comment on above: Performed By: #### ANJALI PRADHAN, BMP #### [address] [place], [place] 2918[address] Mat Man: Sarai Howell MD Urea nitrogen [Mass/Vol] 18 mg/dL Normal 8-23 [facility] Comment on above: Performed By: #### ANJALI PRADHAN, BMP #### [facility] [address] [place] [address] [place], [place] 4587783 Mat Man: Sarai Howell MD CBC with Diffon 04-25-2023 Abs. Basophil 0.04 k/uL Normal 0.00-0.20 [facility] Comment on above: Performed By: #### ANJALI PRADHAN, BMP #### [facility] [address] [place] [address] [place], [place] 5704283 Mat Man: Sarai Howell MD Abs.Imm.Granulocyte 0.04 k/uL Normal 0.00-0.30 [facility] Comment on above: Performed By: #### ANJALI PRADHAN, BMP #### [address] [place] [address] Mat Man: Sarai Howell MD Abs.Neutrophil (Seg) 5.64 k/uL Normal 1.50-8.10 [facility] Comment on above: Performed By: #### ANJALI PRADHAN, BMP #### [address] [place] [address] Mat Man: Sarai Howell MD Basophils/100 WBC (Bld) 1 % Normal 0-2 [facility] Comment on above: Performed By: #### ANJALI PRADHAN, BMP #### [address] [place] [address] Mat Man: Sarai Howell MD Eosinophils (Bld) [#/Vol] 0.09 10*3/uL Normal 0.00-0.44 [facility] Comment on above: Performed By: #### ANJALI PRADHAN, BMP #### [address] [place] [address]683 Mat Man: Sarai Howell MD Eosinophils/100 WBC (Bld) 1 % Normal 1-4 [facility] Comment on above: Performed By: #### ANJALI PRADHAN, BMP #### [address] [place], [facility] Mat Man: Sarai Howell MD Erythrocyte distribution width (RBC) [Ratio] 15.4 % High 11.8-14.4 [facility] Comment on above: Performed By: #### ANJALI PRADHAN, BMP #### [address] [place] [id number] Mat Man: Sarai Howell MD Hematocrit (Bld) [Volume fraction] 40.6 % Low 40.7-50.3 [facility] Comment on above: Performed By: #### ANJALI PRADHAN, BMP #### [facility] [address] [place], [facility] Mat Man: Sarai Howell MD Hemoglobin (Bld) [Mass/Vol] 13.1 g/dL Normal 13.0-17.0 [facility] Comment on above: Performed By: #### ANJALI PRADHAN, BMP #### [facility] [address] [place], [place] [address] Mat Man: Sarai Howell MD Immature granulocytes/100 WBC (Bld) 1 % High 0 [facility] Comment on above: Performed By: #### ANJALI PRADHAN, BMP #### [address] [place], [facility] Mat Man: Sarai Howell MD Lymphocytes (Bld) [#/Vol] 1.86 10*3/uL Normal 1.10-3.70 [facility] Comment on above: Performed By: #### ANJALI PRADHAN, BMP #### [address] [place], [place] [address] Mat Man: Sarai Howell MD Lymphocytes/100 WBC (Bld) 22 % Low 24-43 [facility] Comment on above: Performed By: #### ANJALI PRADHAN, BMP #### [facility] [address] [place] [address] [address] [place], [place] [address] Mat Man: Sarai Howell MD MCH (RBC) [Entitic mass] 29.0 pg Normal 25.2-33.5 [facility] Comment on above: Performed By: #### ANJALI PRADHAN, BMP #### [facility] [address] [place], [facility] Mat Man: Sarai Howell MD MCHC (RBC) [Mass/Vol] 32.3 g/dL Normal 28.4-34.8 [facility] Comment on above: Performed By: #### T ANJALI AYALA, BMP #### [facility] [address] [place], [place] 8[address] Mat Man: Sarai Howell MD MCV (RBC) [Entitic vol] 89.8 fL Normal 82.6-102.9 [facility] Comment on above: Performed By: #### T ANJALI AYALA, BMP #### [facility] [address] [place], [facility] Mat Man: Sarai Howell MD Monocytes (Bld) [#/Vol] 0.83 10*3/uL Normal 0.10-1.20 [facility] Comment on above: Performed By: #### ANJALI PRADHAN, BMP #### [facility] [address] [place], [facility] Mat Man: Sarai Howell MD Monocytes/100 WBC (Bld) 10 % Normal 3-12 [facility] Comment on above: Performed By: #### ANJALI PRADHAN, BMP #### [address] [place], [facility] Mat Man: Sarai Hoewll MD Neutrophil (Seg) 65 % Normal 36-65 [facility] Comment on above: Performed By: #### ANJALI PRADHAN, BMP #### [facility] [address] [place], [place] [address] Mat Man: Sarai Howell MD NRBC Automated 0.0 per 100 WBC Normal 0.0 [facility] Comment on above: Performed By: #### ANJALI PRADHAN, BMP #### [facility] [address] [place], [facility] Mat Man: Sarai Howell MD Platelet mean volume (Bld) [Entitic vol] 11.9 fL Normal 8.1-13.5 [facility] Comment on above: Performed By: #### ANJALI PRADHAN, BMP #### [facility] [address] [place], [place] 194[address]83 Mat Man: Sarai Howell MD Platelets (Bld) [#/Vol] 254 10*3/uL Normal 138-453 [facility] Comment on above: Performed By: #### T ANJALI AYALA, BMP #### [facility] [address] [place] [address] Mat Man: Sarai Howell MD RBC (Bld) [#/Vol] 4.52 10*6/uL Normal 4.21-5.77 [facility] Comment on above: Performed By: #### T ANJALI AYALA, BMP #### [address] [place], [place] 8184283 Mat Man: Sarai Howell MD WBC (Bld) [#/Vol] 8.5 10*3/uL Normal 3.5-11.3 [facility] Comment on above: Performed By: #### T ANJALI AYALA, BMP #### [address] [place], [facility] Mat Man: Sarai Howell MD CT HEAD WO CONTRASTon [...] Babs Mae MD 04/25/23 Final result Normal [facility] Flu A/B Ag Detectionon 04-25 Flu A Ag Detection Negative Normal NEG [facility] Comment on above: Result Comment: for Influenza A Antigen Performed By: #### F LUABA #### [address] [place] [address] Mat Man: Sarai Howell MD Flu B Ag Detection Negative Normal NEG [facility] Comment on above: Result Comment: for Influenza B Antigen. Performed By: #### F LUABA #### [facility] [address] [place] [address] [place] [address] Mat Man: Sarai Howell MD Lactic Acidon 04-25-2023 Lactate [Moles/Vol] 1.3 mmol/L Normal 0.5-2.2 [facility] Comment on above: Performed By: #### L ACTIC #### [facility] [address] [place] [address] [place] [address] Mat Man: Sarai Howell MD [id number] 04-25-2023 SARS-CoV-2 (COVID-19) RNA JOSÉ MIGUEL+probe Ql (Unsp spec) Not detected Normal NOTDET [facility] Comment on above: Result Comment: [...] management decisions. Fact sheet for Healthcare Providers: https://www.fda.gov/media/233665/download Fact sheet for Patients: https://www.fda.gov/media/568685/download Methodology: Isothermal Nucleic Acid Amplification Performed By: #### F LUABA #### [address] [place] [address] Mat Man: Sarai Howell MD Troponinon 04-25-2023 Troponin, High Sens 26 ng/L High [address] Comment on above: Result Comment: High Sensitivity Troponin values cannot be compared with other Troponin methodologies. Performed By: #### F LUABA #### [facility] [address] [place] [address] Dr. [place]icas, [facility] Mat Man: Sarai Howell MD Troponin, High Sens 27 ng/L High 022 [facility] Comment on above: Result Comment: High Sensitivity Troponin values cannot be compared with other Troponin methodologies. Performed By: #### T ROPI, CDP, BMP #### [address] [place] [address] Mat Man: Sarai Howell MD UA w/Reflex Cultureon 2022 Bilirubin, SemiQt,Ur SMALL Abnormal NEG [facility] Comment on above: Performed By: #### F LUABA #### [facility] [address] [place] [address] [place] [address] Mat Man: Sarai Howell MD Blood, Urine 3+ Abnormal NEG [facility] Comment on above: Performed By: #### F LUABA #### [facility] [address] [place] [address] [place] [id number] Mat Man: Sarai Howell MD Clarity (U) Cloudy Abnormal CLEAR [facility] Comment on above: Performed By: #### F LUABA #### [facility] [address] [place] [address] [place] [address] Mat Man: Sarai Howell MD Color (U) Yellow Normal YEL [facility] Comment on above: Performed By: #### F LUABA #### [facility] [address] [place] [address] Dr. [place], [place] [id number] Mat Man: Sarai Howell MD Glucose Ql (U) Negative Normal NEG [facility] Comment on above: Performed By: #### F LUABA #### [facility] [address] [place] [address] Dr. [place], [place] 875[address]83 Mat Man: Sarai Howell MD Ketones Ql (U) 1+ mg/dL Abnormal NEG [facility] Comment on above: Performed By: #### F LUABA #### [facility] [address] [place] [address] Dr. [place], [place] [id number] Mat Man: Sarai Howell MD Leukocyte esterase Test strip Ql (U) TRACE Abnormal NEG [facility] Comment on above: Performed By: #### F LUABA #### [address] [place], [place] 880[address]83 Mat Man: Sarai Howell MD Nitrite,Ur Negative Normal NEG [facility] Comment on above: Performed By: #### F LUABA #### [facility] [address] [place] [address] Dr. [place], [place] 9081683 Mat Man: Sarai Howell MD PH,Ur 6.0 Normal 5.0-9.0 [facility] Comment on above: Performed By: #### F LUABA #### [facility] [address] [place] [address] Dr. [place], [place] [id number] Mat Man: Sarai Howell MD Protein Ql (U) 1+ mg/dL Abnormal NEG [facility] Comment on above: Performed By: #### F LUABA #### [facility] [address] [place], [place] 3836183 Mat Man: Sarai Howell MD Spec. Organ,Ur >1.030 High 1.010-1.02 0 [facility] Comment on above: Performed By: #### F LUABA #### [facility] [address] [place], [place] 9449683 Mat Man: Sarai Howell MD Urobilinogen,Ur Normal Normal 0.0-1.0 [facility] Comment on above: Performed By: #### F LUABA #### [facility] [address] [place], [place] 0918983 Mat Man: Sarai Howell MD Urinalysis,Microon 3 Bacteria 1+ Abnormal NONE [facility] Comment on above: Performed By: #### F LUABA #### [facility] [address] [place], [place] 2257583 Mat Man: Sarai Howell MD Epithelial cells LM Ql (Urine sed) None [place] 0-5 [facility] Comment on above: Performed By: #### F LUABA #### [facility] [address] [place], [place] [id number] Mat Man: Sarai Howell MD Mucus Strands TRACE Abnormal NONE [facility] Comment on above: Performed By: #### F LUABA #### [facility] [address] [place], [place] 6704383 Mat Man: Sarai Howell MD Urine RBC's 20 TO 50 Normal 0-2 [facility] Comment on above: Performed By: #### F LUABA #### [facility] [address] [place], [place] 0746683 Mat Man: Sarai Howell MD Urine WBC's 2 TO 5 Normal 0-5 [facility] Comment on above: Performed By: #### F HENRY #### [facility] [address] [place] [address] Mat Man: Sarai Howell MD XR CHEST PORTABLEon 04-25-20 [...] Sarai Henson MD 04/25/23 Final result Normal [facility] BNPon 01-17-2023 Natriuretic peptide B (Bld) [Mass/Vol] 210.0 pg/mL Normal <=900.0 [facility] Comment on above: Performed By: #### B PROPERTY MANAGEMENT SUPERVISOR, CMADM, CMP ####[facility] [address] [place] [address]Dr. Donna Malone CARDIAC MJ ADMITon 023 CK [Catalytic activity/Vol] 67 U/L Normal 39-308 [facility] Comment on above: Performed By: #### B PROPERTY MANAGEMENT SUPERVISOR, CMADM, CMP ####[facility] [address]dt[address] [place] [id number]. Donna Malone CK.MB [Mass/Vol] 2.51 ng/mL Normal <=3.60 [facility] Comment on above: Performed By: #### B PROPERTY MANAGEMENT SUPERVISOR, CMADM, CMP ####[facility] I[address]vaqylgw[address] [place] [address]Dr. Donna Malone HSTROP 9.2 pg/mL Normal 4.0-76.1 [facility] Comment on above: Result Comment: CUT- OFF POINTS HAVE BEEN ESTABLISHED BASED ON THE FOURTH UNIVERSAL DEFINITIONS OF MYOCARDIALINFARCTION. THE UPPER REFERENCE LIMIT (URL) OF TROPONIN, DEFINED THE 99TH PERCENTILE OFcTnI DISTRIBUTION IN A REFERENCE POPULATION, HAS BEEN CONFIRMED THE DECISION THRESHOLDFOR [place] DIAGNOSIS. Performed By: #### B PROPERTY MANAGEMENT SUPERVISOR, CMADM, CMP ####[facility] [address] [place] [address]Dr. Donna Malone BINDU 68 ng/mL Normal 16-96 [facility] Comment on above: Performed By: #### B PROPERTY MANAGEMENT SUPERVISOR, CMADM, CMP ####[facility] [address]hcwl[address] [place] [address]Dr. Donna Faisal CBC AUTO DIFFon 01-17-2023 BASO # 0.1 103/ul Normal 0.0-0.1 [facility] Comment on above: Performed By: #### C BC ####[facility] [address] [place], [place] [address]Dr. Donna Malone Basophils/100 WBC (Bld) 0.8 % Normal 0.2-2.0 [facility] Comment on above: Performed By: #### C BC ####[facility] [address] [place], [place] [address]Dr. Donna Faisal EO # 0.1 103/ul Normal 0.0-0.7 [facility] Comment on above: Performed By: #### C BC ####[facility] Ned[address] [place], [place] [address]Dr. Rubyyvan Malone Eosinophils/100 WBC (Bld) 1.4 % Normal 0.9-7.0 [facility] Comment on above: Performed By: #### C BC ####[facility] T[address]ts[address] [place], [place] [address]Dr. Rubyyvan Malone Erythrocyte distribution width (RBC) [Ratio] 14.6 % Normal 11.0-15.0 [facility] Comment on above: Performed By: #### C BC ####[facility] Ctwomovf[address] [place], [place] [address]Dr. Rubyyvan Faisal Hematocrit (Bld) [Volume fraction] 43.9 % Normal 42.0-54.0 [facility] Comment on above: Performed By: #### C BC ####[facility] A[address] [place], [place] [address]Dr. Donna Malone Hemoglobin (Bld) [Mass/Vol] 14.2 g/dL Normal 14.0-18.0 [facility] Comment on above: Performed By: #### C BC ####[facility] [address] [place] [address]Dr. Donna Malone IG # 0.04 10e3/ul Critically high 0.00-0.03 [facility] Comment on above: Performed By: #### C BC ####[facility] Nsbjshyigk[address] [place] [address]Dr. Donna Malone IG % 0.4 % Normal 0.0-0.5 [facility] Comment on above: Performed By: #### C BC ####[facility] Pad[address] [place], [place] [address]DrElizabeth Malone LYMPH # 2.3 103/ul Normal 1.2-3.8 [facility] Comment on above: Performed By: #### C BC ####[facility] Uxrypc[address] [place], [place] [address]Dr. Donna Malone Lymphocytes/100 WBC (Bld) 25.4 % Normal 20.5-60.0 [facility] Comment on above: Performed By: #### C BC ####[facility] Es[address] [place] [address]Dr. Donna Malone MANUAL DIFF REQ NO Normal [facility] Comment on above: Performed By: #### C BC ####[facility] [address] [place], [place] [address]DrElizabeth Malone MCH (RBC) [Entitic mass] 29.6 pg Normal 25.9-34.0 [facility] Comment on above: Performed By: #### C BC ####[facility] Itvjsup[address]vf[address] [place], [place] [address]DrElizabeth Malone MCHC (RBC) [Mass/Vol] 32.3 g/dL Normal 29.9-35.2 [facility] Comment on above: Performed By: #### C BC ####[facility] Vvmzmzax[address] [place], [place] [address]Dr. Donna Malone MCV (RBC) [Entitic vol] 91.5 fL Normal 80.0-94.0 [facility] Comment on above: Performed By: #### C BC ####[facility] Ghngfjncsf[address] [place], [place] [address]Dr. Donna Malone MONO # 0.7 103/ul Normal 0.3-0.8 [facility] Comment on above: Performed By: #### C BC ####[facility] Vkoanpclyw[address] [place], [place] [address]Dr. Donna Faisal Monocytes/100 WBC (Bld) 7.5 % Normal 1.7-12.0 [facility] Comment on above: Performed By: #### C BC ####[facility] [address]ok[address] [place], [place] [address]Dr. Donna Malone NEUT # 5.9 103/ul Normal 1.4-6.5 [facility] Comment on above: Performed By: #### C BC ####[facility] Mwjmkmexim[address] [place], [place] [address]Dr. Donna Faisal Neutrophils/100 WBC (Bld) 64.5 % Normal 43.0-75.0 [facility] Comment on above: Performed By: #### C BC ####[facility] [address] [place], [place] [address]Dr. Donna Faisal Platelet mean volume (Bld) [Entitic vol] 10.6 fL Normal 9.5-13.5 [facility] Comment on above: Performed By: #### C BC ####[facility] [address]dobfingco[address] [place], [place] [address]Dr. Donna Faisal PLT 296 103/ul Normal 150-450 [facility] Comment on above: Performed By: #### C BC ####[facility] Htxfw[address] [place], [place] [address]Dr. Rubyyvan Faisal RBC 4.80 106/ul Normal 4.70-6.10 [facility] Comment on above: Performed By: #### C BC ####[facility] Zcraw[address] [place], [place] [address]Dr. Donna Malone WBC 9.1 103/ul Normal 4.0-11.0 [facility] Comment on above: Performed By: #### C BC ####[facility] [address]qmnbidx[address] [place] [address] CT CSPINE WO CONon 3 CT CSPINE WO CON Normal [facility] CT HEAD WO CONon 01-17-2023 CT HEAD WO CON Normal [facility] CT LSPINE WO CONon 3 CT LSPINE WO CON Normal [facility] PROF 14(COMP METB)on 023 Albumin [Mass/Vol] 3.3 g/dL Critically low 3.4-5.0 [facility] Comment on above: Performed By: #### B PROPERTY MANAGEMENT SUPERVISOR, CMADM, CMP ####[facility] [address] [place] [address]Dr. Donna Malone Albumin/Globulin [Mass ratio] 0.8 {ratio} Normal [facility] Comment on above: Performed By: #### B PROPERTY MANAGEMENT SUPERVISOR, CMADM, CMP ####[facility] Av[address]taqfnw[address] [place] [address]Dr. Donna Malone ALP [Catalytic activity/Vol] 55 U/L Normal 46-116 [facility] Comment on above: Performed By: #### B PROPERTY MANAGEMENT SUPERVISOR, CMADM, CMP ####[facility] Hpbmrhgoig[address] [place] [address]Dr. Donna Malone ALT [Catalytic activity/Vol] 15 U/L Critically low 16-63 [facility] Comment on above: Performed By: #### B PROPERTY MANAGEMENT SUPERVISOR, CMADM, CMP ####[facility] [address]qkg[address]zgwq65[address] [place] [address]Dr. Donna Malone Anion gap [Moles/Vol] 9.6 mmol/L Normal [facility] Comment on above: Performed By: #### B PROPERTY MANAGEMENT SUPERVISOR, CMADM, CMP ####[facility] Wx[address]uneyiyk[address] [place] [address]Dr. Donna Malone AST [Catalytic activity/Vol] 14 U/L Critically low 15-37 [facility] Comment on above: Performed By: #### B PROPERTY MANAGEMENT SUPERVISOR, CMADM, CMP ####[facility] A[address]ufy[address] [place] [address]Dr. Donna Malone Bilirubin [Mass/Vol] 0.2 mg/dL Normal 0.2-1.0 [facility] Comment on above: Performed By: #### B PROPERTY MANAGEMENT SUPERVISOR, CMADM, CMP ####[facility] T[address]kaudr[address] [place] [address]Dr. Dnona Malone Calcium [Mass/Vol] 8.6 mg/dL Normal 8.5-10.1 [facility] Comment on above: Performed By: #### B PROPERTY MANAGEMENT SUPERVISOR, CMADM, CMP ####[facility] Hpvaysvgtd4624 [place] [address]Dr. Donna Malone Chloride [Moles/Vol] 107 mmol/L Normal 98-107 [facility] Comment on above: Performed By: #### B PROPERTY MANAGEMENT SUPERVISOR, CMADM, CMP ####[facility] [address]cusorkpms[address] [place], [place] [address]Dr. Donna Malone CO2 [Moles/Vol] 25.9 mmol/L Normal 21.0-32.0 [facility] Comment on above: Performed By: #### B PROPERTY MANAGEMENT SUPERVISOR, CMADM, CMP ####[facility] [address]vjyfcdp[address] [place], [place] [address]Dr. Donna Malone Creatinine [Mass/Vol] 1.12 mg/dL Normal 0.70-1.30 [facility] Comment on above: Performed By: #### B PROPERTY MANAGEMENT SUPERVISOR, CMADM, CMP ####[facility] [address]axzsq[address]ls[address] [place], [place] [address]Dr. Donna Malone EGFR-AF SAUDI ARABIAN >60 Normal >=60 [facility] Comment on above: Performed By: #### B PROPERTY MANAGEMENT SUPERVISOR, CMADM, CMP ####[facility] Bruskzkrgr[address] [place], [place] [address]Dr. Donna Malone EGFR-NON AF SAUDI ARABIAN >60 Normal >=60 [facility] Comment on above: Performed By: #### B PROPERTY MANAGEMENT SUPERVISOR, CMADM, CMP ####[facility] Vhuuzqtvac[address] [place] [address]Dr. Donna Malone Globulin (S) [Mass/Vol] 4.2 g/dL Normal [facility] Comment on above: Performed By: #### B PROPERTY MANAGEMENT SUPERVISOR, CMADM, CMP ####[facility] [address]aztczdq[address] [place] [address]Dr. Donna Malone Glucose [Mass/Vol] 163 mg/dL Critically high 74-106 [facility] Comment on above: Performed By: #### B PROPERTY MANAGEMENT SUPERVISOR, CMADM, CMP ####[facility] Olnhtgirol[address]46 [place] [address]Dr. Donna Malone Potassium [Moles/Vol] 4.5 mmol/L Normal 3.5-5.1 [facility] Comment on above: Performed By: #### B PROPERTY MANAGEMENT SUPERVISOR, CMADM, CMP ####[facility] Unyhrllwax[address] [place], [place] [address]Dr. Donna Malone Protein [Mass/Vol] 7.5 g/dL Normal 6.4-8.2 [facility] Comment on above: Performed By: #### B PROPERTY MANAGEMENT SUPERVISOR, CMADM, CMP ####[facility] Qlnmsmhmpo[address] [place], [place] [address]Dr. Donna Malone Sodium [Moles/Vol] 138 mmol/L Normal 136-145 [facility] Comment on above: Performed By: #### B PROPERTY MANAGEMENT SUPERVISOR, CMADM, CMP ####[facility] Lloazfmkhv3374 [place] [address]Dr. Donna Malone Urea nitrogen [Mass/Vol] 11.0 mg/dL Normal 7.0-18.0 [facility] Comment on above: Performed By: #### B PROPERTY MANAGEMENT SUPERVISOR, CMADM, CMP ####[facility] Rsacdsxnzi4903 [place] [address]Dr. Donna Malone Urea nitrogen/Creatinine [Mass ratio] 9.8 mg/mg Normal [facility] Comment on above: Performed By: #### B PROPERTY MANAGEMENT SUPERVISOR, CMADM, CMP ####[facility] Wipccuywdp54[address] [place] [address]Dr. Donna Malone PROTIMEon 01-17-2023 INR Coag (PPP) [Relative time] 0.94 {INR} Normal [facility] Comment on above: Performed By: #### P TT, PT ####[facility] [address]fsy[address]tpo[address] [place], [place] [address]Dr. Donna Malone INR GUIDELINES SEE BELOW Normal [facility] Comment on above: Result Comment: FLORESITA RED INR: 2.0 - 3.0 CONDITIONS NOT LISTED BELOW 2.5 - 3.5 FOR PROSTHETIC HEART VALVE REPLACEMENT 2.5 - 3.5 RECURRENT THROMBOSIS Performed By: #### P TT, PT ####[facility] Eiaihbeozy[address] [place], [place] [address]Dr. Donna Malone PT Coag (PPP) [Time] 10.0 s Normal 9.0-11.6 [facility] Comment on above: Performed By: #### P TT, PT ####[facility] Gsduhawott[address] [place], [place] [address]Dr. Rubyyvan Malone PTTon 01-17-2023 aPTT Coag (Bld) [Time] 29.6 s Normal 22.3-36.2 [facility] Comment on above: Performed By: #### P TT, PT ####[facility] Lmyvbkxuxw[address] [place], [place] [address]Dr. Donna Malone CBC AUTO DIFFon 11-17-2022 BASO # 0.0 103/ul Normal 0.0-0.1 [facility] Comment on above: Performed By: #### C BC ####[facility] Ieipngojoe[address] [place], [place] [address]Dr. Donna Malone Basophils/100 WBC (Bld) 0.2 % Normal 0.2-2.0 [facility] Comment on above: Performed By: #### C BC ####[facility] [address]awvcm[address]cfm[address] [place], [place] [address]Dr. Donna Malone EO # 0.0 103/ul Normal 0.0-0.7 [facility] Comment on above: Performed By: #### C BC ####[facility] Huegivifdk[address] [place], [place] [address]Dr. Donna Malone Eosinophils/100 WBC (Bld) 0.0 % Critically low 0.9-7.0 [facility] Comment on above: Performed By: #### C BC ####[facility] Bhxrzkaass0323 [place] [address]Dr. Donna Malone Erythrocyte distribution width (RBC) [Ratio] 14.5 % Normal 11.0-15.0 [facility] Comment on above: Performed By: #### C BC ####[facility] O[address]jxcgi[address] [place] [address]Dr. Donna Malone Hematocrit (Bld) [Volume fraction] 39.6 % Critically low 42.0-54.0 [facility] Comment on above: Performed By: #### C BC ####[facility] Tqnmrjycer[address] [place], [place] [address]Dr. Donna Malone Hemoglobin (Bld) [Mass/Vol] 13.3 g/dL Critically low 14.0-18.0 [facility] Comment on above: Performed By: #### C BC ####[facility] Edqqocupqk[address] [place], [place] [address]Dr. Donna Malone IG # 0.06 10e3/ul Critically high 0.00-0.03 [facility] Comment on above: Performed By: #### C BC ####[facility] Xlofebktrb[address] [place], [place] [address]Dr. Donna Malone IG % 0.5 % Normal 0.0-0.5 [facility] Comment on above: Performed By: #### C BC ####[facility] Kmqmjbcjxw[address] [place], [place] [address]Dr. Donna Malone LYMPH # 1.0 103/ul Critically low 1.2-3.8 [facility] Comment on above: Performed By: #### C BC ####[facility] Bfpxtewapi[address] [place], [place] [address]Dr. Donna Malone Lymphocytes/100 WBC (Bld) 8.3 % Critically low 20.5-60.0 [facility] Comment on above: Performed By: #### C BC ####[facility] Tcwznxdomb[address] [place], [place] [address]Dr. Rubyyvan Malone MANUAL DIFF REQ NO Normal [facility] Comment on above: Performed By: #### C BC ####[facility] [address]argw24[address] [place] [id number]. Donna Malone MCH (RBC) [Entitic mass] 29.4 pg Normal 25.9-34.0 [facility] Comment on above: Performed By: #### C BC ####[facility] Nejbbidvcm299[address] [place] [address]Dr. Donna Malone MCHC (RBC) [Mass/Vol] 33.6 g/dL Normal 29.9-35.2 [facility] Comment on above: Performed By: #### C BC ####[facility] Gweqf[address]lyf05[address] [place] [address]Dr. Donna Faisal MCV (RBC) [Entitic vol] 87.6 fL Normal 80.0-94.0 [facility] Comment on above: Performed By: #### C BC ####[facility] Ts[address]vr[address]ug[address] [place], [place] [address]Dr. Donna Malone MONO # 0.8 103/ul Normal 0.3-0.8 [facility] Comment on above: Performed By: #### C BC ####[facility] Lgdmpwtszl7183 [place] [address]Dr. Rubyyvan Malone Monocytes/100 WBC (Bld) 6.6 % Normal 1.7-12.0 [facility] Comment on above: Performed By: #### C BC ####[facility] Lvhjocmxvu[address] [place], [place] [address]Dr. Rubyyvan Malone NEUT # 10.2 103/ul Critically high 1.4-6.5 [facility] Comment on above: Performed By: #### C BC ####[facility] [address]zw[address]qwa[address] [place], [place] [address]Dr. Donna Malone Neutrophils/100 WBC (Bld) 84.4 % Critically high 43.0-75.0 [facility] Comment on above: Performed By: #### C BC ####[facility] [address]zuvnxpxfq[address] [place], [place] [address]Dr. Donna Malone Platelet mean volume (Bld) [Entitic vol] 11.5 fL Normal 9.5-13.5 [facility] Comment on above: Performed By: #### C BC ####[facility] Vxqgdjthwn58[address] [place] [id number]. Donna Malone PLT 204 103/ul Normal 150-450 [facility] Comment on above: Performed By: #### C BC ####[facility] Prhitqdbts3541 [place] [address]Dr. Donna Malone RBC 4.52 106/ul Critically low 4.70-6.10 [facility] Comment on above: Performed By: #### C BC ####[facility] Oaifrgdoxo5094 [place] [address]Dr. Donna Malone WBC 12.0 103/ul Critically high 4.0-11.0 [facility] Comment on above: Performed By: #### C BC ####[facility] Ztmyrwpmwc20[address] [place] [address]Dr. Donna Malone MAGNESIUMon 11-17-2022 Magnesium [Mass/Vol] 1.9 mg/dL Normal 1.8-2.4 [facility] Comment on above: Performed By: #### C MP, MG ####[facility] Dtalcyuzbm75[address] [place] [address]Dr. Donna Malone PROF 14(COMP METB)on 023 Albumin [Mass/Vol] 3.2 g/dL Critically low 3.4-5.0 [facility] Comment on above: Performed By: #### C MP, MG ####[facility] Ouvlmlghtt[address] [place] [address]Dr. Donna Malone Albumin/Globulin [Mass ratio] 1.0 {ratio} Normal [facility] Comment on above: Performed By: #### C MP, MG ####[facility] Tjhageosfr[address] [place] [address]Dr. Donna Malone ALP [Catalytic activity/Vol] 51 U/L Normal 46-116 [facility] Comment on above: Performed By: #### C MP, MG ####[facility] Bhayzlscsz[address] [place] [address]Dr. Donna Malone ALT [Catalytic activity/Vol] 16 U/L Normal 16-63 [facility] Comment on above: Performed By: #### C MP, MG ####[facility] Dxemixdwtj3435 [place] [address]Dr. Donna Malone Anion gap [Moles/Vol] 14.7 mmol/L Normal [facility] Comment on above: Performed By: #### C MP, MG ####[facility] Dyfhvtgxcm[address] [place] [address]Dr. Donna Malone AST [Catalytic activity/Vol] 24 U/L Normal 15-37 [facility] Comment on above: Performed By: #### C MP, MG ####[facility] [address]pdcorthcl[address] [place] [address]Dr. Donna Malone Bilirubin [Mass/Vol] 0.5 mg/dL Normal 0.2-1.0 [facility] Comment on above: Performed By: #### C MP, MG ####[facility] Obhccpjnox[address] [place], [place] [address]Dr. Donna Malone Calcium [Mass/Vol] 8.6 mg/dL Normal 8.5-10.1 [facility] Comment on above: Performed By: #### C MP, MG ####[facility] Csyeckzwex32[address] [place], [place] [address]Dr. Donna Malone Chloride [Moles/Vol] 108 mmol/L Critically high 98-107 [facility] Comment on above: Performed By: #### C MP, MG ####[facility] Zqrqyeiiqf[address] [place], [place] [address]Dr. Rubyyvan Malone CO2 [Moles/Vol] 21.6 mmol/L Normal 21.0-32.0 [facility] Comment on above: Performed By: #### C MP, MG ####[facility] Lkhiokomvt4[address] [place], [place] [address]Dr. Donna Malone Creatinine [Mass/Vol] 0.83 mg/dL Normal 0.70-1.30 [facility] Comment on above: Performed By: #### C MP, MG ####[facility] Ahabvvobrw7104[address] [place], [place] [address]Dr. Donna Malone EGFR-AF SAUDI ARABIAN >60 Normal >=60 [facility] Comment on above: Performed By: #### C MP, MG ####[facility] Vszdaedygu[address] [place] [address]Dr. Donna Malone EGFR-NON AF SAUDI ARABIAN >60 Normal >=60 [facility] Comment on above: Performed By: #### C MP, MG ####[facility] Muigewxltt[address] [place] [address]Dr. Donna Malone Globulin (S) [Mass/Vol] 3.2 g/dL Normal [facility] Comment on above: Performed By: #### C MP, MG ####[facility] Zztimofspm[address] [place] [address]Dr. Donna Malone Glucose [Mass/Vol] 162 mg/dL Critically high 74-106 [facility] Comment on above: Performed By: #### C MP, MG ####[facility] Holryeadlo046[address] [place], [place] [address]Dr. Donna Malone Potassium [Moles/Vol] 3.3 mmol/L Critically low 3.5-5.1 [facility] Comment on above: Performed By: #### C MP, MG ####[facility] Pyquvakqzs3632[address] [place], [place] [address]Dr. Donna Malone Protein [Mass/Vol] 6.4 g/dL Normal 6.4-8.2 [facility] Comment on above: Performed By: #### C MP, MG ####[facility] Emnqzzexia8[address] [place], [place] [address]Dr. Donna Malone Sodium [Moles/Vol] 141 mmol/L Normal 136-145 [facility] Comment on above: Performed By: #### C MP, MG ####[facility] Kwevlhqfcr4[address] [place], [place] [address]Dr. Donna Malone Urea nitrogen [Mass/Vol] 12.0 mg/dL Normal 7.0-18.0 [facility] Comment on above: Performed By: #### C MP, MG ####[facility] Hlaaqtkkdf4314[address] [place], [place] [address]Dr. Donna Malone Urea nitrogen/Creatinine [Mass ratio] 14.5 mg/mg Normal [facility] Comment on above: Performed By: #### C MP, MG ####[facility] Echdmzevao8167[address] [place], [place] [address]Dr. Donna Malone AMMONIAon 11-16-2022 Ammonia (P) [Mass/Vol] ug/dL Critically low 11-32 [facility] Comment on above: Performed By: #### A MM ####[facility] Tvdsufzszs78[address] [place], [place] [address]Dr. Donna Malone CBC AUTO DIFFon 11-16-2022 BASO # 0.0 103/ul Normal 0.0-0.1 [facility] Comment on above: Performed By: #### C BC ####[facility] Uaedfncpat823[address] [place], [place] [address]Dr. Rubyyvan Malone Basophils/100 WBC (Bld) 0.2 % Normal 0.2-2.0 [facility] Comment on above: Performed By: #### C BC ####[facility] Chbwgzqvsi5087[address] [place], [place] [address]Dr. Donna Malone EO # 0.0 103/ul Normal 0.0-0.7 [facility] Comment on above: Performed By: #### C BC ####[facility] Lntngcmsrz0699[address] [place], [place] [address]Dr. Donna Malone Eosinophils/100 WBC (Bld) 0.0 % Critically low 0.9-7.0 [facility] Comment on above: Performed By: #### C BC ####[facility] Xmufahltsy3107[address] [place], [place] [address]Dr. Donna Malone Erythrocyte distribution width (RBC) [Ratio] 14.4 % Normal 11.0-15.0 [facility] Comment on above: Performed By: #### C BC ####[facility] Bblqvjcgrt372[address] [place], [place] [address]Dr. Donna Malone Hematocrit (Bld) [Volume fraction] 38.6 % Critically low 42.0-54.0 [facility] Comment on above: Performed By: #### C BC ####[facility] [address]cljomuakn[address] [place] [phone]. Donna Malone Hemoglobin (Bld) [Mass/Vol] 13.1 g/dL Critically low 14.0-18.0 [facility] Comment on above: Performed By: #### C BC ####[facility] Fezqwterjg[address] [place] [address]Dr. Donna Malone IG # 0.05 10e3/ul Critically high 0.00-0.03 [facility] Comment on above: Performed By: #### C BC ####[facility] Cszjpbryim25[address] [place] [address]Dr. Donna Malone IG % 0.5 % Normal 0.0-0.5 [facility] Comment on above: Performed By: #### C BC ####[facility] Wmpyhgnmid20[address] [place] [address]Dr. Donna Malone LYMPH # 1.0 103/ul Critically low 1.2-3.8 [facility] Comment on above: Performed By: #### C BC ####[facility] Kveofnmrdn6775[address] [place], [place] [address]Dr. Donna Malone Lymphocytes/100 WBC (Bld) 10.8 % Critically low 20.5-60.0 [facility] Comment on above: Performed By: #### C BC ####[facility] Nefkxgeyep413[address] [place], [place] [address]Dr. Donna Malone MANUAL DIFF REQ NO Normal [facility] Comment on above: Performed By: #### C BC ####[facility] Ckdmjrgnge67[address] [place], [place] [address]Dr. Donna Malone MCH (RBC) [Entitic mass] 29.4 pg Normal 25.9-34.0 [facility] Comment on above: Performed By: #### C BC ####[facility] Usvvcdbiok7889[address] [place], [place] [address]Dr. Donna Malone MCHC (RBC) [Mass/Vol] 33.9 g/dL Normal 29.9-35.2 [facility] Comment on above: Performed By: #### C BC ####[facility] [address]io[address]vcdv[address] [place] [phone]. Donna Malone MCV (RBC) [Entitic vol] 86.7 fL Normal 80.0-94.0 [facility] Comment on above: Performed By: #### C BC ####[facility] Egcdurkzva75[address] [place] [phone]. Donna Malone MONO # 0.4 103/ul Normal 0.3-0.8 [facility] Comment on above: Performed By: #### C BC ####[facility] Ihubevqrln7343 [place] [address]Dr. Donna Malone Monocytes/100 WBC (Bld) 4.4 % Normal 1.7-12.0 [facility] Comment on above: Performed By: #### C BC ####[facility] Btitndyezw[address] [place], [place] [address]Dr. Donna Malone NEUT # 7.9 103/ul Critically high 1.4-6.5 [facility] Comment on above: Performed By: #### C BC ####[facility] Dylbmpkgds7557[address] [place], [place] [address]Dr. Donna Malone Neutrophils/100 WBC (Bld) 84.1 % Critically high 43.0-75.0 [facility] Comment on above: Performed By: #### C BC ####[facility] Acbphjihsw04[address] [place] [phone]. Donna Malone Platelet mean volume (Bld) [Entitic vol] 11.3 fL Normal 9.5-13.5 [facility] Comment on above: Performed By: #### C BC ####[facility] Psqtpoucut3672 [place] [phone]. Donna Faisal PLT 201 103/ul Normal 150-450 [facility] Comment on above: Performed By: #### C BC ####[facility] Oxnsccoyng9594 [place] [phone]. Donna Malone RBC 4.45 106/ul Critically low 4.70-6.10 [facility] Comment on above: Performed By: #### C BC ####[facility] Emmaqipyip[address] [place] [address]Dr. Donna Malone WBC 9.3 103/ul Normal 4.0-11.0 [facility] Comment on above: Performed By: #### C BC ####[facility] Hjmgkcfaqn022[address] [place], [place] [address]Dr. Donna Malone GLYCOHEMOGLOBIN A1Con 2022 ADA RECOMMENDATION SEE BELOW Normal [facility] Comment on above: Result Comment: ADA RECOMMENDED LIMIT 4.0 - 6.0 ADA THERAPEUTIC TARGET < 7.0 ACTION SUGGESTED > 7.0 Performed By: #### A 1C ####[facility] Svrevgfhaq9454[address] [place], [place] [address]Dr. Donna Malone Glucose [Mass/Vol] 128 mg/dL Normal [facility] Comment on above: Performed By: #### A 1C ####[facility] Vumecraidq3486[address] [place], [place] [address]Dr. Donna Malone HbA1c (Bld) [Mass fraction] 6.1 % Normal 4.5-6.2 [facility] Comment on above: Performed By: #### A 1C ####[facility] Sveqxutkye6056[address] [place], [place] [address]Dr. Donna Malone MAGNESIUMon 11-16-2022 Magnesium [Mass/Vol] 1.8 mg/dL Normal 1.8-2.4 [facility] Comment on above: Performed By: #### C MP, MG ####[facility] Rjxoegltko11[address] [place], [place] [address]Dr. Donna Malone POINT OF CARE GLUCOSEon 11-07 Glucose [Mass/Vol] 170 mg/dL Critically high 74-106 [facility] Comment on above: Performed By: #### P OCGLUC ####[facility] Zyqetlskqr4368[address] [place], [place] [address]Dr. Donna Malone Glucose [Mass/Vol] 158 mg/dL Critically high 74-106 [facility] Comment on above: Performed By: #### P OCGLUC ####[facility] Bqardmoagi6838[address] [place], [place] [address]Dr. Donna Malone Glucose [Mass/Vol] 176 mg/dL Critically high 74-106 [facility] Comment on above: Performed By: #### P OCGLUC ####[facility] Hyhtcarkwh[address] [place] [address]Dr. Donna Malone PROF 14(COMP METB)on 023 Albumin [Mass/Vol] 3.1 g/dL Critically low 3.4-5.0 [facility] Comment on above: Performed By: #### C MP, MG ####[facility] Dziqtnzlkt01[address] [place] [address]Dr. Donna Malone Albumin/Globulin [Mass ratio] 0.9 {ratio} Normal [facility] Comment on above: Performed By: #### C MP, MG ####[facility] Ndkfucddal4074[address] [place], [place] [address]Dr. Donna Malone ALP [Catalytic activity/Vol] 52 U/L Normal 46-116 [facility] Comment on above: Performed By: #### C MP, MG ####[facility] Yzzjjssxjk28[address] [place] [address]Dr. Donna Malone ALT [Catalytic activity/Vol] 13 U/L Critically low 16-63 [facility] Comment on above: Performed By: #### C MP, MG ####[facility] Ylvqmiwshj97[address] [place] [address]Dr. Donna Malone Anion gap [Moles/Vol] 15.7 mmol/L Normal [facility] Comment on above: Performed By: #### C MP, MG ####[facility] Pewdcehhhe27[address] [place] [address]Dr. Donna Malone AST [Catalytic activity/Vol] 16 U/L Normal 15-37 [facility] Comment on above: Performed By: #### C MP, MG ####[facility] Jymllvokju88[address] [place] [address]Dr. Donna Malone Bilirubin [Mass/Vol] 0.5 mg/dL Normal 0.2-1.0 [facility] Comment on above: Performed By: #### C MP, MG ####[facility] Htvctweftq680[address] [place], [place] [address]Dr. Donna Malone Calcium [Mass/Vol] 8.6 mg/dL Normal 8.5-10.1 [facility] Comment on above: Performed By: #### C MP, MG ####[facility] Nqgbfpjeqc56[address] [place] [address]Dr. Donna Faisal Chloride [Moles/Vol] 109 mmol/L Critically high 98-107 [facility] Comment on above: Performed By: #### C MP, MG ####[facility] Kzdqpupcfr0380[address] [place], [place] [address]Dr. Donna Malone CO2 [Moles/Vol] 21.7 mmol/L Normal 21.0-32.0 [facility] Comment on above: Performed By: #### C MP, MG ####[facility] Yggvyvctrk9559[address] [place], [place] [address]Dr. Rubyyvan Malone Creatinine [Mass/Vol] 0.99 mg/dL Normal 0.70-1.30 [facility] Comment on above: Performed By: #### C MP, MG ####[facility] Nnswlaadci5126[address] [place], [place] [address]Dr. Donna Faisal EGFR-AF SAUDI ARABIAN >60 Normal >=60 [facility] Comment on above: Performed By: #### C MP, MG ####[facility] Hfhymcvmat[address] [place], [place] [address]Dr. Donna Faisal EGFR-NON AF SAUDI ARABIAN >60 Normal >=60 [facility] Comment on above: Performed By: #### C MP, MG ####[facility] Duowwiwarv2056[address] [place], [place] [address]Dr. Donna Faisal Globulin (S) [Mass/Vol] 3.3 g/dL Normal [facility] Comment on above: Performed By: #### C MP, MG ####[facility] Kgqlbgonlp879[address] [place], [place] [address]Dr. Donna Malone Glucose [Mass/Vol] 168 mg/dL Critically high 74-106 [facility] Comment on above: Performed By: #### C MP, MG ####[facility] Iessobdrgu79[address] [place], [place] [address]Dr. Yiyvan Malone Potassium [Moles/Vol] 3.4 mmol/L Critically low 3.5-5.1 [facility] Comment on above: Performed By: #### C MP, MG ####[facility] Kwzpbznudv99[address] [place] [address]Dr. Donna Malone Protein [Mass/Vol] 6.4 g/dL Normal 6.4-8.2 [facility] Comment on above: Performed By: #### C MP, MG ####[facility] Kuvzwlzjld9[address] [place], [place] [address]Dr. Rubyyvan Malone Sodium [Moles/Vol] 143 mmol/L Normal 136-145 [facility] Comment on above: Performed By: #### C MP, MG ####[facility] Avmmzdiobm560027 [address] [place], [place] [address]Dr. Donna Malone Urea nitrogen [Mass/Vol] 9.0 mg/dL Normal 7.0-18.0 [facility] Comment on above: Performed By: #### C MP, MG ####[facility] Wzzhyktltc209227 [address] [place], [place] [address]Dr. Rubyyvan Malone Urea nitrogen/Creatinine [Mass ratio] 9.1 mg/mg Normal [facility] Comment on above: Performed By: #### C MP, MG ####[facility] Rgzzzsygxb2822[address] [place], [place] [address]Dr. Donna Faisal XR CHEST 2 Von 11-16-2022 XR CHEST 2 V Normal [facility] AMMONIAon 11-15-2022 Ammonia (P) [Moles/Vol] 20 umol/L Normal 11-32 [facility] Comment on above: Performed By: #### A MM ####[facility] Bnpkkhccnz3416[address] [place], [place] [address]Dr. Rubyyvan Malone CBC AUTO DIFFon 11-15-2022 BASO # 0.0 103/ul Normal 0.0-0.1 [facility] Comment on above: Performed By: #### C BC ####[facility] Bgvhtgsrox8458[address] [place], [place] [address]Dr. Donna Malone Basophils/100 WBC (Bld) 0.5 % Normal 0.2-2.0 [facility] Comment on above: Performed By: #### C BC ####[facility] Esladesmly9707[address] [place], [place] [address]Dr. Donna Malone EO # 0.1 103/ul Normal 0.0-0.7 [facility] Comment on above: Performed By: #### C BC ####[facility] Hiiiryyjnp847[address] [place], [place] [address]Dr. Rubyyvan Malone Eosinophils/100 WBC (Bld) 1.4 % Normal 0.9-7.0 [facility] Comment on above: Performed By: #### C BC ####[facility] Ouojfbwski9869[address] [place], [place] [address]Dr. Rubyyvan Malone Erythrocyte distribution width (RBC) [Ratio] 14.6 % Normal 11.0-15.0 [facility] Comment on above: Performed By: #### C BC ####[facility] Mdnspvvnid2337[address] [place], [place] [address]DrElizabeth Rubyyvan Malone Hematocrit (Bld) [Volume fraction] 36.8 % Critically low 42.0-54.0 [facility] Comment on above: Performed By: #### C BC ####[facility] Jvfoytmjys035[address] [place], [place] [address]DrElizabeth Donna Malone Hemoglobin (Bld) [Mass/Vol] 12.1 g/dL Critically low 14.0-18.0 [facility] Comment on above: Performed By: #### C BC ####[facility] Vgrfgdciex4035[address] [place], [place] [address]Dr. Rubyyvan Malone IG # 0.01 10e3/ul Normal 0.00-0.03 [facility] Comment on above: Performed By: #### C BC ####[facility] Vlgqkhpngg614[address] [place], [place] [address]Dr. Donna Malone IG % 0.2 % Normal 0.0-0.5 [facility] Comment on above: Performed By: #### C BC ####[facility] Bgcymvpwly732[address] [place], [place] [address]DrElizabeth Malone LYMPH # 1.7 103/ul Normal 1.2-3.8 [facility] Comment on above: Performed By: #### C BC ####[facility] Nhzkrseuec48[address] [place] [address]Dr. Donna Malone Lymphocytes/100 WBC (Bld) 27.0 % Normal 20.5-60.0 [facility] Comment on above: Performed By: #### C BC ####[facility] Hqrusafxwf0604 [place] [address]Dr. Donna Malone MANUAL DIFF REQ NO Normal [facility] Comment on above: Performed By: #### C BC ####[facility] Epwpbotypl6394 [place] [address]Dr. Donna Malone MCH (RBC) [Entitic mass] 29.5 pg Normal 25.9-34.0 [facility] Comment on above: Performed By: #### C BC ####[facility] Xcxelbjfzu1334[address] [place], [place] [address]Dr. Donna Malone MCHC (RBC) [Mass/Vol] 32.9 g/dL Normal 29.9-35.2 [facility] Comment on above: Performed By: #### C BC ####[facility] Lhwntddevr9[address] [place], [place] [address]Dr. Donna Malone MCV (RBC) [Entitic vol] 89.8 fL Normal 80.0-94.0 [facility] Comment on above: Performed By: #### C BC ####[facility] Ajxphcfrpx9440[address] [place], [place] [address]Dr. Donna Malone MONO # 0.4 103/ul Normal 0.3-0.8 [facility] Comment on above: Performed By: #### C BC ####[facility] Udytnxlqud7[address] [place], [place] [address]Dr. Donna Malone Monocytes/100 WBC (Bld) 6.7 % Normal 1.7-12.0 [facility] Comment on above: Performed By: #### C BC ####[facility] Unoobfzfvn8184[address] [place], [place] [address]DrElizabeth Malone NEUT # 4.0 103/ul Normal 1.4-6.5 [facility] Comment on above: Performed By: #### C BC ####[facility] Llquafhqow9403 [place] [address]Dr. Donna Faisal Neutrophils/100 WBC (Bld) 64.2 % Normal 43.0-75.0 [facility] Comment on above: Performed By: #### C BC ####[facility] Ahyesgvlyk4660 [place] [address]Dr. Donna Faisal Platelet mean volume (Bld) [Entitic vol] 11.3 fL Normal 9.5-13.5 [facility] Comment on above: Performed By: #### C BC ####[facility] Ofwzjgajqj23[address] [place] [address]Dr. Donna Malone PLT 169 103/ul Normal 150-450 [facility] Comment on above: Performed By: #### C BC ####[facility] Mmlmfzpvil5[address] [place] [address]Dr. Donna Malone RBC 4.10 106/ul Critically low 4.70-6.10 [facility] Comment on above: Performed By: #### C BC ####[facility] Kqjaaqoktb[address] [place] [address]Dr. Rubyyvan Malone WBC 6.3 103/ul Normal 4.0-11.0 [facility] Comment on above: Performed By: #### C BC ####[facility] Eszupmuvle[address] [place] [address]DrElizabeth Donna Faisal GLYCOHEMOGLOBIN A1Con 2022 ADA RECOMMENDATION SEE BELOW Normal [facility] Comment on above: Result Comment: ADA RECOMMENDED LIMIT 4.0 - 6.0 ADA THERAPEUTIC TARGET < 7.0 ACTION SUGGESTED > 7.0 Performed By: #### A 1C ####[facility] Wajwdemtwt027[address] [place], [place] [address]DrElizabeth Malone Glucose [Mass/Vol] 128 mg/dL Normal [facility] Comment on above: Performed By: #### A 1C ####[facility] Zjclgnhbzp7218 [place] [address]DrElizabeth Malone HbA1c (Bld) [Mass fraction] 6.1 % Normal 4.5-6.2 [facility] Comment on above: Performed By: #### A 1C ####[facility] Nwgnqcgsui40[address] [place] [address]Dr. Donna Malone MAGNESIUMon 11-15-2022 Magnesium [Mass/Vol] 1.6 mg/dL Critically low 1.8-2.4 [facility] Comment on above: Performed By: #### C MP, MG ####[facility] Wjbbbptdcg5603 [place] [address]Dr. Donna Malone POINT OF CARE GLUCOSEon Glucose [Mass/Vol] 165 mg/dL Critically high 74-106 [facility] Comment on above: Performed By: #### P OCGLUC ####[facility] Dazotjmdac360[address] [place], [place] [address]Dr. Donna Malone Glucose [Mass/Vol] 155 mg/dL Critically high 74-106 [facility] Comment on above: Performed By: #### P OCGLUC ####[facility] Gsxvoakhza6619[address] [place], [place] [address]Dr. Donna Malone Glucose [Mass/Vol] 111 mg/dL Critically high 74-106 [facility] Comment on above: Performed By: #### P OCGLUC ####[facility] Qomxtozkyq0929 [place] [address]Dr. Donna Malone PROF 14(COMP METB)on 023 Albumin [Mass/Vol] 2.9 g/dL Critically low 3.4-5.0 [facility] Comment on above: Performed By: #### C MP, MG ####[facility] Dnnpknbifj5981 [place] [address]Dr. Donna Malone Albumin/Globulin [Mass ratio] 1.0 {ratio} Normal [facility] Comment on above: Performed By: #### C MP, MG ####[facility] Evupyhdeft495[address] [place] [address]Dr. Donna Malone ALP [Catalytic activity/Vol] 38 U/L Critically low 46-116 [facility] Comment on above: Performed By: #### C MP, MG ####[facility] Cnekpbmtqn3449 [place] [address]Dr. Donna Malone ALT [Catalytic activity/Vol] 13 U/L Critically low 16-63 [facility] Comment on above: Performed By: #### C MP, MG ####[facility] Quiuxnqppr4597 [place] [address]Dr. Donna Malone Anion gap [Moles/Vol] 11.8 mmol/L Normal [facility] Comment on above: Performed By: #### C MP, MG ####[facility] Lrevfivvom8037[address] [place], [place] [address]Dr. Donna Malone AST [Catalytic activity/Vol] 15 U/L Normal 15-37 [facility] Comment on above: Performed By: #### C MP, MG ####[facility] Gbscnqbmuc14[address] [place], [place] [address]Dr. Donna Malone Bilirubin [Mass/Vol] 0.4 mg/dL Normal 0.2-1.0 [facility] Comment on above: Performed By: #### C MP, MG ####[facility] Dbyhygwyhh48[address] [place], [place] [address]Dr. Donna Malone Calcium [Mass/Vol] 8.2 mg/dL Critically low 8.5-10.1 [facility] Comment on above: Performed By: #### C MP, MG ####[facility] Xuoyezivcf28[address] [place], [place] [address]Dr. Donna Malone Chloride [Moles/Vol] 111 mmol/L Critically high 98-107 [facility] Comment on above: Performed By: #### C MP, MG ####[facility] Netcexwngv8847[address] [place], [place] [address]Dr. Donna Malone CO2 [Moles/Vol] 27.9 mmol/L Normal 21.0-32.0 [facility] Comment on above: Performed By: #### C MP, MG ####[facility] Tqkrmzxpwl6[address] [place], [place] [address]Dr. Donna Malone Creatinine [Mass/Vol] 0.99 mg/dL Normal 0.70-1.30 [facility] Comment on above: Performed By: #### C MP, MG ####[facility] Uxcmydqwfx8259 [place] [phone]. Donna Malone EGFR-AF SAUDI ARABIAN >60 Normal >=60 [facility] Comment on above: Performed By: #### C MP, MG ####[facility] Lwnpawvhcf09[address] [place] [phone]. Donna Malone EGFR-NON AF SAUDI ARABIAN >60 Normal >=60 [facility] Comment on above: Performed By: #### C MP, MG ####[facility] Qgqriemdsw7208 [place] [phone]. Donna Faisal Globulin (S) [Mass/Vol] 2.9 g/dL Normal [facility] Comment on above: Performed By: #### C MP, MG ####[facility] Ituewjspvz1417 [place] [address]Dr. Rubyyvan Faisal Glucose [Mass/Vol] 88 mg/dL Normal 74-106 [facility] Comment on above: Performed By: #### C MP, MG ####[facility] Dousuofxwz6965 [place] [phone]. Donna Faisal Potassium [Moles/Vol] 3.7 mmol/L Normal 3.5-5.1 [facility] Comment on above: Performed By: #### C MP, MG ####[facility] E[address]vkvow[address] [place] [phone]. Rubyyvan Faisal Protein [Mass/Vol] 5.8 g/dL Critically low 6.4-8.2 [facility] Comment on above: Performed By: #### C MP, MG ####[facility] Vyfwhntncj34[address] [place] [phone]. Rubyyvan Malone Sodium [Moles/Vol] 147 mmol/L Critically high 136-145 [facility] Comment on above: Performed By: #### C MP, MG ####[facility] Kjjtjwrnra73[address] [place] [phone]. Donna Malone Urea nitrogen [Mass/Vol] 12.0 mg/dL Normal 7.0-18.0 [facility] Comment on above: Performed By: #### C MP, MG ####[facility] Rctbziprnv[address] [place] [address]Dr. Donna Malone Urea nitrogen/Creatinine [Mass ratio] 12.1 mg/mg Normal [facility] Comment on above: Performed By: #### C MP, MG ####[facility] Jaagfzdmaj4[address] [place] [address]Dr. Donna Malone ACETONE SERUMon 11-14-2022 ACETONE Negative Normal NEGATIVE [facility] Comment on above: Performed By: #### A CETON ####[facility] Rpychagfim[address] [place], [place] [address]Dr. Donna Malone AMMONIAon 11-14-2022 Ammonia (P) [Moles/Vol] 17 umol/L Normal [facility] Comment on above: Performed By: #### A MM ####[facility] Fsfekeaohh[address] [place], [place] [address]Dr. Donna Malone BLOOD GASES BTYon 11-14-2022 02 MODE ROOM AIR Normal [facility] Comment on above: Performed By: #### A BG ####[facility] Hwlnhmsejo[address] [place], [place] [address]Dr. Donna Malone ALLENS TEST Positive Normal [facility] Comment on above: Performed By: #### A BG ####[facility] Bbunlorxyp6[address] [place], [place] [address]Dr. Donna Malone Base excess Calc (Bld) [Moles/Vol] 1.1 mmol/L Normal -2.0-2.0 [facility] Comment on above: Performed By: #### A BG ####[facility] Hypinsptkn3618[address] [place], [place] [address]Dr. Donna Malone BIPAP PRESSURE Normal [facility] Comment on above: Performed By: #### A BG ####[facility] Uzzmjyxdsa486[address] [place], [place] [address]Dr. Donna Malone CPAP Normal [facility] Comment on above: Performed By: #### A BG ####[facility] Dphvxnovrc[address] [place], [place] [id number]. Donna Malone FIO2 Normal [facility] Comment on above: Performed By: #### A BG ####[facility] Vuswjezgzn[address] [place], [place] [address]Dr. Donna Malone HCO3 (Bld) [Moles/Vol] 26.0 mmol/L Normal 22.0-26.0 [facility] Comment on above: Performed By: #### A BG ####[facility] Iorfjeazyk18[address] [place], [place] [address]Dr. Donna Malone LPM [facility] Comment on above: Performed By: #### A BG ####[facility] Feyqfsornq213[address] [place], [place] [address]Dr. Donna Malone MINUTE VOLUME Normal [facility] Comment on above: Performed By: #### A BG ####[facility] Udjneumcro036[address] [place], [place] [address]Dr. Donna Malone Oxygen (Bld) [Partial pressure] 62.0 mm[Hg] Critically low 80.0-100.0 [facility] Comment on above: Performed By: #### A BG ####[facility] Jfsawxhmnc6850[address] [place], [place] [address]Dr. Donna Malone Oxygen saturation in Blood 91.9 % Critically low 95.0-100.0 [facility] Comment on above: Performed By: #### A BG ####[facility] Kywtxfjwwf7[address] [place], [place] [address]Dr. Donna Malone PCO2 42.8 mmHg Normal 35.0-45.0 [facility] Comment on above: Performed By: #### A BG ####[facility] Vhruchfqpc625[address] [place], [place] [address]Dr. Donna Malone PEEP [facility] Comment on above: Performed By: #### A BG ####[facility] Rgvjxqabfj0801[address] [place], [place] [address]Dr. Donna Malone pH (Bld) 7.392 [pH] Normal 7.350-7.45 0 [facility] Comment on above: Performed By: #### A BG ####[facility] Bpbuvyhlgp23[address] [place] [address]Dr. Donna Malone PIP Normal [facility] Comment on above: Performed By: #### A BG ####[facility] Drwwhzeuyv3748[address] [place], [place] [address]Dr. Donna Malone PS Normal [facility] Comment on above: Performed By: #### A BG ####[facility] Mynpxyngrp5314[address] [place], [place] [address]Dr. Donna Malone PUNCTURE SITE LR [facility] Comment on above: Performed By: #### A BG ####[facility] Ozddmdhtfc8875[address] [place], [place] [address]Dr. Donna Malone RATE [place] [facility] Comment on above: Performed By: #### A BG ####[facility] Tjvqjicpyb[address] [place], [place] [address]Dr. Donna Malone VENT MODE [facility] Comment on above: Performed By: #### A BG ####[facility] Kphczderbd636[address] [place], [place] [address]Dr. Donna Malone [place] [facility] Comment on above: Performed By: #### A BG ####[facility] Svtznmkegg228[address] [place], [place] [address]Dr. Donna Malone BNPon 11-14-2022 Natriuretic peptide B (Bld) [Mass/Vol] 148.0 pg/mL Normal <=900.0 [facility] Comment on above: Performed By: #### B PROPERTY MANAGEMENT SUPERVISOR, CMP, HSTROPN ####[facility] Innjtddvzc5796[address] [place], [place] [address]Dr. Donna Malone CBC AUTO DIFFon 11-14-2022 BASO # 0.0 103/ul Normal 0.0-0.1 [facility] Comment on above: Performed By: #### C BC ####[facility] Clhtysqdlq4814[address] [place], [place] [address]Dr. Donna Malone Basophils/100 WBC (Bld) 0.5 % Normal 0.2-2.0 [facility] Comment on above: Performed By: #### C BC ####[facility] Zqxmqnevlm[address] [place] [address]Dr. Donna Malone EO # 0.1 103/ul Normal 0.0-0.7 [facility] Comment on above: Performed By: #### C BC ####[facility] Bkfbrmunyk7212[address] [place], [place] [address]Dr. Donna Malone Eosinophils/100 WBC (Bld) 0.6 % Critically low 0.9-7.0 [facility] Comment on above: Performed By: #### C BC ####[facility] Ccejxqkrzg0564[address] [place], [place] [address]Dr. Donna Malone Erythrocyte distribution width (RBC) [Ratio] 14.8 % Normal 11.0-15.0 [facility] Comment on above: Performed By: #### C BC ####[facility] Dkufdeilsm9246[address] [place], [place] [address]Dr. Donna Malone Hematocrit (Bld) [Volume fraction] 41.9 % Critically low 42.0-54.0 [facility] Comment on above: Performed By: #### C BC ####[facility] Zgjlhaycaj5[address] [place], [place] [address]Dr. Donna Malone Hemoglobin (Bld) [Mass/Vol] 13.6 g/dL Critically low 14.0-18.0 [facility] Comment on above: Performed By: #### C BC ####[facility] Iujcsvgkvw3965[address] [place], [place] [address]Dr. Donna Faisal IG # 0.01 10e3/ul Normal 0.00-0.03 [facility] Comment on above: Performed By: #### C BC ####[facility] Vrwnkeilwl9044[address] [place], [place] [address]Dr. Donna Malone IG % 0.1 % Normal 0.0-0.5 [facility] Comment on above: Performed By: #### C BC ####[facility] Hwfhdliqsy5320[address] [place], [place] [address]Dr. Rubyyvan Malone LYMPH # 1.7 103/ul Normal 1.2-3.8 [facility] Comment on above: Performed By: #### C BC ####[facility] [address]ogsj[address] [place] [phone]. Donna Faisal Lymphocytes/100 WBC (Bld) 21.2 % Normal 20.5-60.0 [facility] Comment on above: Performed By: #### C BC ####[facility] Jwzawdwgau[address] [place] [address]Dr. Donna Faisal MANUAL DIFF REQ NO Normal [facility] Comment on above: Performed By: #### C BC ####[facility] X[address]qgnvejt[address] [place] [address]Dr. Donna Faisal MCH (RBC) [Entitic mass] 29.2 pg Normal 25.9-34.0 [facility] Comment on above: Performed By: #### C BC ####[facility] Fkdauixmpx7[address] [place], [place] [address]Dr. Donna Faisal MCHC (RBC) [Mass/Vol] 32.5 g/dL Normal 29.9-35.2 [facility] Comment on above: Performed By: #### C BC ####[facility] Wcythsxasu364[address] [place] [address]Dr. Rubyyvan Malone MCV (RBC) [Entitic vol] 90.1 fL Normal 80.0-94.0 [facility] Comment on above: Performed By: #### C BC ####[facility] Uruhislqcg1334[address] [place], [place] [address]Dr. Donna Malone MONO # 0.4 103/ul Normal 0.3-0.8 [facility] Comment on above: Performed By: #### C BC ####[facility] Fgjihomgvi13[address] [place] [address]Dr. Rubyyvan Malone Monocytes/100 WBC (Bld) 5.5 % Normal 1.7-12.0 [facility] Comment on above: Performed By: #### C BC ####[facility] Ojljbmggrq5832[address] [place], [place] [address]Dr. Donna Malone NEUT # 5.7 103/ul Normal 1.4-6.5 [facility] Comment on above: Performed By: #### C BC ####[facility] Rbpqvxfdmu9[address] [place] [phone]. Donna Malone Neutrophils/100 WBC (Bld) 72.1 % Normal 43.0-75.0 [facility] Comment on above: Performed By: #### C BC ####[facility] Rrmumkxgww8649 [place] [phone]. Donna Malone Platelet mean volume (Bld) [Entitic vol] 11.5 fL Normal 9.5-13.5 [facility] Comment on above: Performed By: #### C BC ####[facility] Nvmogyfxrn4268 [place] [phone]. Donna Malone PLT 193 103/ul Normal 150-450 [facility] Comment on above: Performed By: #### C BC ####[facility] Nrnowqhawe84[address] [place] [address]Dr. Donna Malone RBC 4.65 106/ul Critically low 4.70-6.10 [facility] Comment on above: Performed By: #### C BC ####[facility] Dwnloxotwm[address] [place], [place] [address]Dr. Donna Malone WBC 7.9 103/ul Normal 4.0-11.0 [facility] Comment on above: Performed By: #### C BC ####[facility] Zhffjnlkbh230[address] [place], [place] [address]Dr. Donna Malone CT HEAD WO CONon 11-14-2022 CT HEAD WO CON Normal [facility] CULTURE BLOODon 11-14-2022 Microscopic examination of blood, culture Culture Observations: NO GROWTH AT 5 DAYS. Normal [facility] Comment on above: Performed By: #### B LDCX2 ####[facility] Rxllcwzbdu13[address] [place] [phone]. Donna Malone Microscopic examination of blood, culture Culture Observations: NO GROWTH AT 5 DAYS. Normal [facility] Comment on above: Performed By: #### B LDCX1 ####[facility] Jmttzmvscm67[address] [place] [address]Dr. Donna Faisal Covid-19 PCR (CVDTB)on SARS-CoV-2 (COVID-19) RNA JOSÉ MIGUEL+probe Ql (Unsp spec) Not detected Normal NOT DETECTED [facility] Comment on above: Result [...] for this test is supported by the [place] of Health and Human Service's declaration that [...] be used). Performed By: #### C VDTB ####[facility] Fqxnkgzmrp[address] [place], [place] [address]Dr. yvan Malone DRUG SCREEN RAPID (URINE)on 11-14-2022 AMP Negative Normal NEGATIVE [facility] Comment on above: Performed By: #### D SHARONA ERUR ####[facility] Qvhwpaknsv[address] [place], [place] [address]Dr. Donna aMlone BAR Negative Normal NEGATIVE [facility] Comment on above: Performed By: #### D SHARONA ERUR ####[facility] Sbzflzxfrg24[address] [place] [address]Dr. Donna Malone BUP Negative Normal NEGATIVE [facility] Comment on above: Performed By: #### D SHARONA ERUR ####[facility] Zdfdkpaonb6[address] [place] [address]Dr. Donna Malone BZO Negative Normal NEGATIVE [facility] Comment on above: Performed By: #### D SHARONA ERUR ####[facility] Svgfxdthdm9[address] [place] [address]Dr. Donna Malone EVONNE Negative Normal NEGATIVE [facility] Comment on above: Performed By: #### D RUGRPD, ERUR ####[facility] Iljjpupxqx18[address] [place] [address]Dr. Donna Malone CUT-OFFS SEE BELOW Normal [facility] Comment on above: Result [...] ng/mL Performed By: #### Calvin TABOR, ERUR ####[facility] Tkbaupqnui[address] [place], [place] [address]Dr. Donna Malone DRUG CUT HEADER DRUG CLASS TEST SYST EM CUT-OFF CONCENTRATIONS ARE FOLLOWS: Normal [facility] Comment on above: Performed By: #### Calvin TABOR, ERUR ####[facility] Jipmjwdhyy[address] [place], [place] [address]Dr. Donna Malone mAMP Negative Normal NEGATIVE [facility] Comment on above: Performed By: #### Calvin TABOR, ERUR ####[facility] Vqudqzmezi[address] [place], [place] [address]Dr. Donna Malone MTD Negative Normal NEGATIVE [facility] Comment on above: Performed By: #### Calvin TABOR, ERUR ####[facility] Mhugeutvow[address] [place], [place] [address]Dr. Donna Malone OPI Negative Normal NEGATIVE [facility] Comment on above: Performed By: #### Calvin TABOR, ERUR ####[facility] Luigeqtvlq15[address] [place] [address]Dr. Donna Malone OXY Negative Normal NEGATIVE [facility] Comment on above: Performed By: #### Calvin TABOR, ERUR ####[facility] Lnoobckfvc[address] [place] [address]Dr. Donna Malone PCP Negative Normal NEGATIVE [facility] Comment on above: Performed By: #### Calvin TABOR, ERUR ####[facility] Eqymywmuar89[address] [place] [address]Dr. Donna Malone PPX Negative Normal NEGATIVE [facility] Comment on above: Performed By: #### Calvin TABOR, ERUR ####[facility] Sqrycbixrh67[address] [place] [address]Dr. Donna Malone TCA Positive Abnormal NEGATIVE [facility] Comment on above: Performed By: #### Calvin TABOR, ERUR ####[facility] Fzqgfgadbv7834 [place] [address]Dr. Donna Malone THC Negative Normal NEGATIVE [facility] Comment on above: Performed By: #### Calvin TABOR, ERUR ####[facility] Fekprecstg9[address] [place] [address]Dr. Donna Malone ER URINE PROFILEon 3 Bilirubin Ql (U) MODERATE Abnormal NEGATIVE [facility] Comment on above: Performed By: #### Calvin TABOR, ERUR ####[facility] Wgtsmebdrd64[address] [place], [place] [address]Dr. Donna Malone Clarity (U) CLEAR Normal CLEAR [facility] Comment on above: Performed By: #### Calvin TABOR, ERUR ####[facility] Mrtjyluwih7[address] [place] [address]Dr. Donna Malone Color (U) DK. YELLOW Normal YELLOW [facility] Comment on above: Performed By: #### Calvin TABOR, ERUR ####[facility] Zhuuhlqtsd2091 [place] [address]Dr. Donna JARRELLAHD A micrscopic examina tion will be performed if indicated. Normal [facility] Comment on above: Performed By: #### Calvin TABOR, ERUR ####[facility] Znsuxiarca9375 [place] [address]Dr. Donna Malone Glucose Ql (U) Negative Normal NEGATIVE [facility] Comment on above: Performed By: #### Calvin TABOR, ERUR ####[facility] Fghfqexhzx0951 [place] [address]Dr. Donna Malone Hemoglobin Ql (U) Negative Normal NEGATIVE [facility] Comment on above: Performed By: #### Calvin TABOR, ERUR ####[facility] Jepsxvnsrz5[address] [place] [address]Dr. Donna Maolne Ketones Ql (U) 40 mg/dl Abnormal NEGATIVE [facility] Comment on above: Performed By: #### Calvin TABOR, ERUR ####[facility] Vvquiklpgs8[address] [place], [place] [address]Dr. Donna Malone LEUKOCYTES Negative Normal NEGATIVE [facility] Comment on above: Performed By: #### Calvin TABOR, ERUR ####[facility] Bmngfemurn58[address] [place], [place] [address]Dr. Donna Malone Nitrite Ql (U) Negative Normal NEGATIVE [facility] Comment on above: Performed By: #### Calvin TABOR ERUR ####[facility] Tquwwdslql188[address] [place], [place] [address]Dr. Donna Malone pH (U) 6.0 [pH] Normal 5-9 [facility] Comment on above: Performed By: #### Calvin TABOR, ERUR ####[facility] Bykuikpmyv07[address] [place], [place] [address]Dr. Donna Malone SPEC GRAVITY 1.030 Abnormal 1.005-<=1. 025 [facility] Comment on above: Performed By: #### Calvin TABOR ERUR ####[facility] Ripoqrngbm22[address] [place], [place] [address]Dr. Donna Malone UA PROTEIN TRACE Normal NEGATIVE/ TRACE [facility] Comment on above: Performed By: #### Calvin TABOR ERUR ####[facility] Bxryzwvywn2[address] [place], [place] [address]Dr. Donna Malone UR MICRO IND NOT INDICATED Normal [facility] Comment on above: Performed By: #### Calvin TABOR, ERUR ####[facility] Jnpywnnobd406[address] [place], [place] [address]Dr. Donna Malone Urobilinogen Qn (U) 1.0 {Jermain'U}/dL Normal 0.2 - 1. 0 [facility] Comment on above: Performed By: #### D SHARONA, ERUR ####[facility] Lujbfiohur[address] [place] [address]Dr. Donna Malone LACTATE/LACTIC ACIDon 2022 Lactate [Moles/Vol] 1.6 mmol/L Normal 0.4-1.9 [facility] Comment on above: Performed By: #### L ACT ####[facility] Hbqtdrmjbw[address] [place] [address]Dr. Donna Malone PROF 14(COMP METB)on 023 Albumin [Mass/Vol] 3.4 g/dL Normal 3.4-5.0 [facility] Comment on above: Performed By: #### B PROPERTY MANAGEMENT SUPERVISOR, CMP, HSTROPN ####[facility] Ekbarakqyz[address] [place] [address]Dr. Donna Malone Albumin/Globulin [Mass ratio] 1.0 {ratio} Normal [facility] Comment on above: Performed By: #### B PROPERTY MANAGEMENT SUPERVISOR, CMP, HSTROPN ####[facility] Wntbtlvtam4420 [place] [address]Dr. Donna Malone ALP [Catalytic activity/Vol] 48 U/L Normal 46-116 [facility] Comment on above: Performed By: #### B PROPERTY MANAGEMENT SUPERVISOR, CMP, HSTROPN ####[facility] Xkyugbxgjz6260 [place] [address]Dr. Donna Malone ALT [Catalytic activity/Vol] 13 U/L Critically low 16-63 [facility] Comment on above: Performed By: #### B PROPERTY MANAGEMENT SUPERVISOR, CMP, HSTROPN ####[facility] Hwjmfktpyw8[address] [place] [address]Dr. Donna Malone Anion gap [Moles/Vol] 13.2 mmol/L Normal [facility] Comment on above: Performed By: #### B PROPERTY MANAGEMENT SUPERVISOR, CMP, HSTROPN ####[facility] Enkbwbrqqy8[address] [place] [address]Dr. Donna Malone AST [Catalytic activity/Vol] 13 U/L Critically low 15-37 [facility] Comment on above: Performed By: #### B PROPERTY MANAGEMENT SUPERVISOR, CMP, HSTROPN ####[facility] Fparmphopc7663 [place] [address]Dr. Donna Malone Bilirubin [Mass/Vol] 0.4 mg/dL Normal 0.2-1.0 [facility] Comment on above: Performed By: #### B PROPERTY MANAGEMENT SUPERVISOR, CMP, HSTROPN ####[facility] Wkekdlvzln0085 [place] [address]Dr. Donna Malone Calcium [Mass/Vol] 9.2 mg/dL Normal 8.5-10.1 [facility] Comment on above: Performed By: #### B PROPERTY MANAGEMENT SUPERVISOR, CMP, HSTROPN ####[facility] Dvyatbdism5702 [place] [address]Dr. Donna Malone Chloride [Moles/Vol] 108 mmol/L Critically high 98-107 [facility] Comment on above: Performed By: #### B PROPERTY MANAGEMENT SUPERVISOR, CMP, HSTROPN ####[facility] Nleuxwvnfh6909 [place] [address]Dr. Donna Malone CO2 [Moles/Vol] 27.0 mmol/L Normal 21.0-32.0 [facility] Comment on above: Performed By: #### B PROPERTY MANAGEMENT SUPERVISOR, CMP, HSTROPN ####[facility] Vdzdockplg9320 [place] [address]Dr. Donna Malone Creatinine [Mass/Vol] 1.14 mg/dL Normal 0.70-1.30 [facility] Comment on above: Performed By: #### B PROPERTY MANAGEMENT SUPERVISOR, CMP, HSTROPN ####[facility] Hwbskndgza2004 [place] [address]Dr. Donna Malone EGFR-AF SAUDI ARABIAN >60 Normal >=60 [facility] Comment on above: Performed By: #### B PROPERTY MANAGEMENT SUPERVISOR, CMP, HSTROPN ####[facility] Yjgyawbwyc85[address] [place] [address]Dr. Donna Malone EGFR-NON AF SAUDI ARABIAN >60 Normal >=60 [facility] Comment on above: Performed By: #### B PROPERTY MANAGEMENT SUPERVISOR, CMP, HSTROPN ####[facility] Vyuyqjqcag4[address] [place] [address]Dr. Donna Malone Globulin (S) [Mass/Vol] 3.5 g/dL Normal [facility] Comment on above: Performed By: #### B PROPERTY MANAGEMENT SUPERVISOR, CMP, HSTROPN ####[facility] Vlelkrhrps5236 [place] [address]Dr. Donna Malone Glucose [Mass/Vol] 126 mg/dL Critically high 74-106 [facility] Comment on above: Performed By: #### B PROPERTY MANAGEMENT SUPERVISOR, CMP, HSTROPN ####[facility] [address]zhwjyfzyh[address] [place], [place] [address]Dr. Donna Malone Potassium [Moles/Vol] 4.2 mmol/L Normal 3.5-5.1 [facility] Comment on above: Performed By: #### B PROPERTY MANAGEMENT SUPERVISOR, CMP, HSTROPN ####[facility] Ijjrmkaiyy0316[address] [place], [place] [address]Dr. Donna Malone Protein [Mass/Vol] 6.9 g/dL Normal 6.4-8.2 [facility] Comment on above: Performed By: #### B PROPERTY MANAGEMENT SUPERVISOR, CMP, HSTROPN ####[facility] Isjyqjhnqn88[address] [place], [place] [address]Dr. Donna Malone Sodium [Moles/Vol] 144 mmol/L Normal 136-145 [facility] Comment on above: Performed By: #### B PROPERTY MANAGEMENT SUPERVISOR, CMP, HSTROPN ####[facility] Vgqsoajqyv[address] [place], [place] [address]Dr. Donna Malone Urea nitrogen [Mass/Vol] 17.0 mg/dL Normal 7.0-18.0 [facility] Comment on above: Performed By: #### B PROPERTY MANAGEMENT SUPERVISOR, CMP, HSTROPN ####[facility] Yfnxhagoqd7587[address] [place], [place] [address]Dr. Donna Malone Urea nitrogen/Creatinine [Mass ratio] 14.9 mg/mg Normal [facility] Comment on above: Performed By: #### B PROPERTY MANAGEMENT SUPERVISOR, CMP, HSTROPN ####[facility] Qgaecjlaea3668 [place] [address]Dr. Donna Malone TROPONIN, HIGH SENSITIVITYon 11-14-2022 HSTROP 11.2 pg/mL Normal 4.0-76.1 [facility] Comment on above: Result Comment: CUT- OFF POINTS HAVE BEEN ESTABLISHED BASED ON THE FOURTH UNIVERSAL DEFINITIONS OF MYOCARDIALINFARCTION. THE UPPER REFERENCE LIMIT (URL) OF TROPONIN, DEFINED THE 99TH PERCENTILE OFcTnI DISTRIBUTION IN A REFERENCE POPULATION, HAS BEEN CONFIRMED THE DECISION THRESHOLDFOR [place] DIAGNOSIS. Performed By: #### B PROPERTY MANAGEMENT SUPERVISOR, CMP, HSTROPN ####[facility] [address]jynjojpsu[address] [place], [place] [address]Dr. Donna Malone XR CHEST 1 Von 11-14-2022 XR CHEST 1 V Normal [facility] ER URINE PROFILEon 3 Bilirubin Ql (U) Negative Normal NEGATIVE [facility] Comment on above: Performed By: #### E RUR ####[facility] Ypngmlyqbq46[address] [place], [place] [address]Dr. Donna Malone Clarity (U) CLEAR Normal CLEAR [facility] Comment on above: Performed By: #### E RUR ####[facility] Sdiouwddod[address] [place], [place] [address]Dr. Donna Malone Color (U) YELLOW Normal YELLOW [facility] Comment on above: Performed By: #### E RUR ####[facility] [address]xbyokayr[address] [place], [place] [address]Dr. Donna Malone ERUAHD A micrscopic examina tion will be performed if indicated. Normal [facility] Comment on above: Performed By: #### E RUR ####[facility] Vaapgnozcz[address] [place], [place] [address]Dr. Donna Malone Glucose Ql (U) 250 mg/dl Abnormal NEGATIVE [facility] Comment on above: Performed By: #### E RUR ####[facility] Ggzdaanpsa6654[address] [place], [place] [address]Dr. Donna Malone Hemoglobin Ql (U) TRACE-INTACT Abnormal NEGATIVE [facility] Comment on above: Performed By: #### E RUR ####[facility] L[address]jrciyrv[address] [place] [address]Dr. Donna Malone Ketones Ql (U) Negative Normal NEGATIVE [facility] Comment on above: Performed By: #### E RUR ####[facility] Csbqyfsksw58[address] [place] [address]Dr. Donna Malone LEUKOCYTES Negative Normal NEGATIVE [facility] Comment on above: Performed By: #### E RUR ####[facility] Fqicjnxlwj8[address] [place], [place] [address]Dr. Donna Malone Nitrite Ql (U) Negative Normal NEGATIVE [facility] Comment on above: Performed By: #### E RUR ####[facility] Tjahgyohtz5870[address] [place], [place] [address]Dr. Donna Malone pH (U) 5.5 [pH] Normal 5-9 [facility] Comment on above: Performed By: #### E RUR ####[facility] Uzuplqtuba34[address] [place], [place] [address]Dr. Donna Malone SPEC GRAVITY 1.025 Normal 1.005-<=1. 025 [facility] Comment on above: Performed By: #### E RUR ####[facility] Dkggfbtzsx5417[address] [place], [place] [address]Dr. Donna Malone UA PROTEIN Negative Normal NEGATIVE/ TRACE [facility] Comment on above: Performed By: #### E RUR ####[facility] Ahxkwnsgew75[address] [place], [place] [address]Dr. Donna Malone UR MICRO IND NOT INDICATED Normal [facility] Comment on above: Performed By: #### E RUR ####[facility] Vehsrfpkez3779[address] [place], [place] [address]Dr. Donna Malone Urobilinogen Qn (U) 0.2 {Jermain'U}/dL Normal 0.2 - 1. 0 [facility] Comment on above: Performed By: #### E RUR ####[facility] Pqsvnmcbqr804[address] [place], [place] [address]Dr. Donna Malone CBC AUTO DIFFon 10-26-2022 BASO # 0.0 103/ul Normal 0.0-0.1 [facility] Comment on above: Performed By: #### C BC ####[facility] Kuxnnyyjdg[address] [place], [place] [address]Dr. Donna Malone Basophils/100 WBC (Bld) 0.4 % Normal 0.2-2.0 [facility] Comment on above: Performed By: #### C BC ####[facility] Jawbetzjjl6276[address] [place], [place] [address]Dr. Donna Malone EO # 0.0 103/ul Normal 0.0-0.7 [facility] Comment on above: Performed By: #### C BC ####[facility] Srcreunzkl769527 [address] [place], [place] [address]Dr. Donna Malone Eosinophils/100 WBC (Bld) 0.0 % Critically low 0.9-7.0 [facility] Comment on above: Performed By: #### C BC ####[facility] Krjqwoqhfn9950[address] [place], [place] [address]Dr. Donna Malone Erythrocyte distribution width (RBC) [Ratio] 14.5 % Normal 11.0-15.0 [facility] Comment on above: Performed By: #### C BC ####[facility] Qapgwgjkty7425[address] [place], [place] [address]Dr. Donna Malone Hematocrit (Bld) [Volume fraction] 41.2 % Critically low 42.0-54.0 [facility] Comment on above: Performed By: #### C BC ####[facility] Ddzduzxfws852[address] [place], [place] [address]Dr. Donna Malone Hemoglobin (Bld) [Mass/Vol] 13.7 g/dL Critically low 14.0-18.0 [facility] Comment on above: Performed By: #### C BC ####[facility] Pelimfbdll4475[address] [place], [place] [address]Dr. Donna Malone IG # 0.02 10e3/ul Normal 0.00-0.03 [facility] Comment on above: Performed By: #### C BC ####[facility] Rjhoxzxwir5447[address] [place], [place] [address]Dr. Donna Malone IG % 0.2 % Normal 0.0-0.5 [facility] Comment on above: Performed By: #### C BC ####[facility] Nkkcuhbkho48[address] [place] [address]DrElizabeth Malone LYMPH # 1.2 103/ul Normal 1.2-3.8 [facility] Comment on above: Performed By: #### C BC ####[facility] Nrelarszag2761 [place] [address]DrElizabeth Malone Lymphocytes/100 WBC (Bld) 14.4 % Critically low 20.5-60.0 [facility] Comment on above: Performed By: #### C BC ####[facility] Gpwcgxutqn301[address] [place], [place] [address]DrElizabeth Malone MANUAL DIFF REQ NO Normal [facility] Comment on above: Performed By: #### C BC ####[facility] Qbwriexegm9348[address] [place], [place] [address]DrElizabeth Malone MCH (RBC) [Entitic mass] 29.4 pg Normal 25.9-34.0 [facility] Comment on above: Performed By: #### C BC ####[facility] Gotqjzghoy8369[address] [place], [place] [address]DrElizabeth Malone MCHC (RBC) [Mass/Vol] 33.3 g/dL Normal 29.9-35.2 [facility] Comment on above: Performed By: #### C BC ####[facility] Cbrpofzvhv[address] [place], [place] [address]DrElizabeth Malone MCV (RBC) [Entitic vol] 88.4 fL Normal 80.0-94.0 [facility] Comment on above: Performed By: #### C BC ####[facility] Ubwipdnwva6839[address] [place], [place] [address]DrElizabeth Malone MONO # 0.2 103/ul Critically low 0.3-0.8 [facility] Comment on above: Performed By: #### C BC ####[facility] Vbxfogioqi299[address] [place], [place] [address]DrElizabeth Malone Monocytes/100 WBC (Bld) 2.5 % Normal 1.7-12.0 [facility] Comment on above: Performed By: #### C BC ####[facility] Vylgygebal5[address] [place] [address]Dr. Donna Malone NEUT # 6.9 103/ul Critically high 1.4-6.5 [facility] Comment on above: Performed By: #### C BC ####[facility] Lqfojprpzt4180 [place] [address]Dr. Donna Malone Neutrophils/100 WBC (Bld) 82.5 % Critically high 43.0-75.0 [facility] Comment on above: Performed By: #### C BC ####[facility] Zmvrufnxda847627 [address] [place], [place] [address]Dr. Donna Malone Platelet mean volume (Bld) [Entitic vol] 11.3 fL Normal 9.5-13.5 [facility] Comment on above: Performed By: #### C BC ####[facility] Wbefuqxpnw1834[address] [place], [place] [address]Dr. Donna Malone PLT 241 103/ul Normal 150-450 [facility] Comment on above: Performed By: #### C BC ####[facility] Iqckqfnnhx106[address] [place], [place] [address]Dr. Donna Malone RBC 4.66 106/ul Critically low 4.70-6.10 [facility] Comment on above: Performed By: #### C BC ####[facility] Xwqwpubcws073[address] [place], [place] [address]Dr. Donna Malone WBC 8.4 103/ul Normal 4.0-11.0 [facility] Comment on above: Performed By: #### C BC ####[facility] Hgtjquxvpy[address] [place], [place] [id number]. Donna Faisal CRPon 10-26-2022 CRP [Mass/Vol] mg/L Normal <=1.0 [facility] Comment on above: Performed By: #### C RP, BMP ####[facility] Rspvwvjumx9998[address] [place], [place] [address]Dr. Rubyyvan Faisal CT LSPINE WO CONon 3 CT LSPINE WO CON Normal [facility] PROF CHEM 8 (BAS METB)on Anion gap [Moles/Vol] 11.9 mmol/L Normal [facility] Comment on above: Performed By: #### C RP, BMP ####[facility] Gjykopjxwo8[address] [place] [address]Dr. Donna Malone Calcium [Mass/Vol] 9.1 mg/dL Normal 8.5-10.1 [facility] Comment on above: Performed By: #### C RP, BMP ####[facility] Kwpnzitxya2598 [place] [address]Dr. Donna Malone Chloride [Moles/Vol] 104 mmol/L Normal 98-107 [facility] Comment on above: Performed By: #### C RP, BMP ####[facility] Zlpznpkswb9424[address] [place], [place] [address]Dr. Donna Malone CO2 [Moles/Vol] 26.3 mmol/L Normal 21.0-32.0 [facility] Comment on above: Performed By: #### C RP, BMP ####[facility] Jgsckdrojq036[address] [place], [place] [address]Dr. Donna Malone Creatinine [Mass/Vol] 0.99 mg/dL Normal 0.70-1.30 [facility] Comment on above: Performed By: #### C RP, BMP ####[facility] Ckwprrgola7055[address] [place], [place] [address]Dr. Rubyyvan Faisal EGFR-AF SAUDI ARABIAN >60 Normal >=60 [facility] Comment on above: Performed By: #### C RP, BMP ####[facility] Wpncimhqrm95[address] [place] [address]Dr. Donna Malone EGFR-NON AF SAUDI ARABIAN >60 Normal >=60 [facility] Comment on above: Performed By: #### C RP, BMP ####[facility] Swoodljedo1564[address] [place], [place] [address]Dr. Rubyyvan Malone Glucose [Mass/Vol] 152 mg/dL Critically high 74-106 [facility] Comment on above: Performed By: #### C RP, BMP ####[facility] [address]qcfsfje8[address] [place] [id number]. Donna Malone Potassium [Moles/Vol] 4.2 mmol/L Normal 3.5-5.1 [facility] Comment on above: Performed By: #### C RP, BMP ####[facility] Ymvhkancfn3020 [place] [address]Dr. Donna Faisal Sodium [Moles/Vol] 138 mmol/L Normal 136-145 [facility] Comment on above: Performed By: #### C RP, BMP ####[facility] Itxqtbewxh6050 [place] [address]Dr. Donna Faisal Urea nitrogen [Mass/Vol] 12.0 mg/dL Normal 7.0-18.0 [facility] Comment on above: Performed By: #### C RP, BMP ####[facility] Tlanfkadck104[address] [place], [place] [address]Dr. Donna Malone Urea nitrogen/Creatinine [Mass ratio] 12.1 mg/mg Normal [facility] Comment on above: Performed By: #### C RP, BMP ####[facility] Eaqnakclrj7714[address] [place], [place] [address]Dr. Donna Faisal SED RATE WESTERGRENon 2022 SED RATE 57 mm/hr Critically high <=20 [facility] Comment on above: Performed By: #### S EDR ####[facility] Pmuycuggcn1657[address] [place], [place] [address]Dr. Donna Faisal CBC AUTO DIFFon 10-25-2022 BASO # 0.0 103/ul Normal 0.0-0.1 [facility] Comment on above: Performed By: #### C BC ####[facility] Ywaywjbyhj9050[address] [place], [place] [address]Dr. Rubyyvan Malone Basophils/100 WBC (Bld) 0.4 % Normal 0.2-2.0 [facility] Comment on above: Performed By: #### C BC ####[facility] Tfiifexkov039[address] [place], [place] [address]Dr. Donna Malone EO # 0.0 103/ul Normal 0.0-0.7 [facility] Comment on above: Performed By: #### C BC ####[facility] Abzywoggyz35[address] [place] [address]Dr. Donna Malone Eosinophils/100 WBC (Bld) 0.0 % Critically low 0.9-7.0 [facility] Comment on above: Performed By: #### C BC ####[facility] Hamnilwkia5478[address] [place], [place] [address]Dr. Donna Malone Erythrocyte distribution width (RBC) [Ratio] 14.5 % Normal 11.0-15.0 [facility] Comment on above: Performed By: #### C BC ####[facility] Dvwmugwnst523[address] [place], [place] [address]Dr. Donna Malone Hematocrit (Bld) [Volume fraction] 43.8 % Normal 42.0-54.0 [facility] Comment on above: Performed By: #### C BC ####[facility] Gvysfuswrk086[address] [place], [place] [address]Dr. Donna Malone Hemoglobin (Bld) [Mass/Vol] 14.2 g/dL Normal 14.0-18.0 [facility] Comment on above: Performed By: #### C BC ####[facility] Vkzkjuswso8005[address] [place], [place] [address]Dr. Donna Malone IG # 0.01 10e3/ul Normal 0.00-0.03 [facility] Comment on above: Performed By: #### C BC ####[facility] Vovvxndyjr754[address] [place], [place] [address]Dr. Donna Malone IG % 0.1 % Normal 0.0-0.5 [facility] Comment on above: Performed By: #### C BC ####[facility] Tfmdfpnwjc8547[address] [place], [place] [address]Dr. Donna Malone LYMPH # 1.4 103/ul Normal 1.2-3.8 [facility] Comment on above: Performed By: #### C BC ####[facility] Vqdhdgcwex188[address] [place], [place] [address]Dr. Donna Malone Lymphocytes/100 WBC (Bld) 17.1 % Critically low 20.5-60.0 [facility] Comment on above: Performed By: #### C BC ####[facility] Xhjxdnmzbi2837 [place] [address]DrElizabeth Malone MANUAL DIFF REQ NO Normal [facility] Comment on above: Performed By: #### C BC ####[facility] Utmqzmtxue[address] [place] [address]Dr. Donna Malone MCH (RBC) [Entitic mass] 29.1 pg Normal 25.9-34.0 [facility] Comment on above: Performed By: #### C BC ####[facility] Hjnztozsco2793 [place] [address]Dr. Donna Malone MCHC (RBC) [Mass/Vol] 32.4 g/dL Normal 29.9-35.2 [facility] Comment on above: Performed By: #### C BC ####[facility] Habaqenmvw224[address] [place], [place] [address]Dr. Donna Malone MCV (RBC) [Entitic vol] 89.8 fL Normal 80.0-94.0 [facility] Comment on above: Performed By: #### C BC ####[facility] Pbjvcpvtzi5645[address] [place], [place] [address]DrElizabeth Malone MONO # 0.3 103/ul Normal 0.3-0.8 [facility] Comment on above: Performed By: #### C BC ####[facility] Vdprxesyli3067[address] [place], [place] [address]DrElizabeth Malone Monocytes/100 WBC (Bld) 4.1 % Normal 1.7-12.0 [facility] Comment on above: Performed By: #### C BC ####[facility] Qsgwbrsata27232[address] [place], [place] [address]DrElizabeth Malone NEUT # 6.3 103/ul Normal 1.4-6.5 [facility] Comment on above: Performed By: #### C BC ####[facility] Jwobnspbxw6847[address] [place], [place] [address]DrElizabeth Malone Neutrophils/100 WBC (Bld) 78.3 % Critically high 43.0-75.0 [facility] Comment on above: Performed By: #### C BC ####[facility] Pyqybzsrbc0772 [place] [address]Dr. Rubyyvan Faisal Platelet mean volume (Bld) [Entitic vol] 11.3 fL Normal 9.5-13.5 [facility] Comment on above: Performed By: #### C BC ####[facility] Zievffbhff49[address] [place] [address]Dr. Rubyyvan Faisal PLT 271 103/ul Normal 150-450 [facility] Comment on above: Performed By: #### C BC ####[facility] Zfkgcaohqw9580[address] [place], [place] [address]Dr. Donna Malone RBC 4.88 106/ul Normal 4.70-6.10 [facility] Comment on above: Performed By: #### C BC ####[facility] Tllvtrjasq9925[address] [place], [place] [address]Dr. Donna Malone WBC 8.0 103/ul Normal 4.0-11.0 [facility] Comment on above: Performed By: #### C BC ####[facility] Eykxvzpydv454[address] [place], [place] [address]Dr. Donna Malone ER URINE PROFILEon 3 Bilirubin Ql (U) Negative Normal NEGATIVE [facility] Comment on above: Performed By: #### E RUR ####[facility] Ivlnsifkfn8707[address] [place], [place] [address]Dr. Donna Malone Clarity (U) CLEAR Normal CLEAR [facility] Comment on above: Performed By: #### E RUR ####[facility] Itbmdvctsw0467[address] [place], [place] [address]Dr. Donna Malone Color (U) YELLOW Normal YELLOW [facility] Comment on above: Performed By: #### E RUR ####[facility] Ujzqazdduw0[address] [place], [place] [address]Dr. Donna Malone ERUAHD A micrscopic examina tion will be performed if indicated. Normal [facility] Comment on above: Performed By: #### E RUR ####[facility] Bbzqezaxmj9594 [place] [address]Dr. Donna Malone Glucose Ql (U) 100 mg/dl Abnormal NEGATIVE [facility] Comment on above: Performed By: #### E RUR ####[facility] Cdycslcvxa734[address] [place], [place] [address]Dr. Donna Malone Hemoglobin Ql (U) Negative Normal NEGATIVE [facility] Comment on above: Performed By: #### E RUR ####[facility] Cjgjzhxgje9185[address] [place], [place] [address]Dr. Donna Malone Ketones Ql (U) TRACE Abnormal NEGATIVE [facility] Comment on above: Performed By: #### E RUR ####[facility] Xrdiyogoxs1448[address] [place], [place] [address]Dr. Donna Malone LEUKOCYTES Negative Normal NEGATIVE [facility] Comment on above: Performed By: #### E RUR ####[facility] Mjgdeqkgta419[address] [place], [place] [address]Dr. Donna Malone Nitrite Ql (U) Negative Normal NEGATIVE [facility] Comment on above: Performed By: #### E RUR ####[facility] Vsjbgsgqdx2415[address] [place], [place] [address]Dr. Donna Malone pH (U) 6.0 [pH] Normal 5-9 [facility] Comment on above: Performed By: #### E RUR ####[facility] Bmqscemokp6[address] [place], [place] [address]Dr. Donna Malone SPEC GRAVITY >=1.030 Abnormal 1.005-<=1. 025 [facility] Comment on above: Performed By: #### E RUR ####[facility] Trpgtateth9826[address] [place], [place] [address]Dr. Donna Malone UA PROTEIN Negative Normal NEGATIVE/ TRACE [facility] Comment on above: Performed By: #### E RUR ####[facility] Fxyggvszpj114[address] [place], [place] [address]Dr. Donna Malone UR MICRO IND NOT INDICATED Normal [facility] Comment on above: Performed By: #### E RUR ####[facility] Hfrlkauttv9050[address] [place], [place] [address]Dr. Donna Malone Urobilinogen Qn (U) 0.2 {Jermain'U}/dL Normal 0.2 - 1. 0 [facility] Comment on above: Performed By: #### E RUR ####[facility] Tbnpasioaq4[address] [place] [address]Dr. Donna Malone PROF CHEM 8 (BAS METB)on Anion gap [Moles/Vol] 16.4 mmol/L Normal [facility] Comment on above: Performed By: #### B MP ####[facility] Bnlfyrxity35[address] [place] [address]Dr. Donna Malone Calcium [Mass/Vol] 9.4 mg/dL Normal 8.5-10.1 [facility] Comment on above: Performed By: #### B MP ####[facility] Gqurtuevbk9941 [place] [address]Dr. Donna Malone Chloride [Moles/Vol] 103 mmol/L Normal 98-107 [facility] Comment on above: Performed By: #### B MP ####[facility] Rsatjsjhws6523 [place] [address]Dr. Donna Malone CO2 [Moles/Vol] 23.7 mmol/L Normal 21.0-32.0 [facility] Comment on above: Performed By: #### B MP ####[facility] Glkqlspnif1315 [place] [address]Dr. Donna Malone Creatinine [Mass/Vol] 1.12 mg/dL Normal 0.70-1.30 [facility] Comment on above: Performed By: #### B MP ####[facility] Bdguoyzyfg8461 [place] [address]Dr. Donan Malone EGFR-AF SAUDI ARABIAN >60 Normal >=60 [facility] Comment on above: Performed By: #### B MP ####[facility] Fkgldtdzyk4347 [place] [address]Dr. Donna Malone EGFR-NON AF SAUDI ARABIAN >60 Normal >=60 [facility] Comment on above: Performed By: #### B MP ####[facility] K[address]zvxfgkhn11[address] [place] [id number]. Donna Malone Glucose [Mass/Vol] 170 mg/dL Critically high 74-106 [facility] Comment on above: Performed By: #### B MP ####[facility] Gysmooerbt7[address] [place] [address]Dr. Donna Malone Potassium [Moles/Vol] 4.1 mmol/L Normal 3.5-5.1 [facility] Comment on above: Performed By: #### B MP ####[facility] Buqzrkrqvv9587 [place] [address]Dr. Donna Maloen Sodium [Moles/Vol] 139 mmol/L Normal 136-145 [facility] Comment on above: Performed By: #### B MP ####[facility] Rqjhywhokp2548 [place] [address]Dr. Donna Malone Urea nitrogen [Mass/Vol] 9.0 mg/dL Normal 7.0-18.0 [facility] Comment on above: Performed By: #### B MP ####[facility] Ejstyghaap98[address] [place], [place] [address]Dr. Donna Malone Urea nitrogen/Creatinine [Mass ratio] 8.0 mg/mg Normal [facility] Comment on above: Performed By: #### B MP ####[facility] Gfyttbefqq7[address] [place] [address]Dr. Donna Malone ACETONE SERUMon 08-10-2022 ACETONE Negative Normal NEGATIVE [facility] Comment on above: Performed By: #### A CETON ####[facility] Pfxevjgtot70[address] [place] [address]Dr. Donna Malone CBC AUTO DIFFon 08-10-2022 BASO # 0.1 103/ul Normal 0.0-0.1 [facility] Comment on above: Performed By: #### C BC ####[facility] Dggsokfxra6175 [place] [address]Dr. Donna Faisal Basophils/100 WBC (Bld) 0.7 % Normal 0.2-2.0 [facility] Comment on above: Performed By: #### C BC ####[facility] Chyoskxmnf4094 [place] [id number]. Donna Malone EO # 0.2 103/ul Normal 0.0-0.7 [facility] Comment on above: Performed By: #### C BC ####[facility] Nknncfgvwp0829 [place] [id number]. Donna Malone Eosinophils/100 WBC (Bld) 2.0 % Normal 0.9-7.0 [facility] Comment on above: Performed By: #### C BC ####[facility] Vfqjgscpog9088 [place] [address]Dr. Donna Malone Erythrocyte distribution width (RBC) [Ratio] 14.3 % Normal 11.0-15.0 [facility] Comment on above: Performed By: #### C BC ####[facility] Gygveetccm[address] [place], [place] [address]Dr. Donna Malone Hematocrit (Bld) [Volume fraction] 37.3 % Critically low 42.0-54.0 [facility] Comment on above: Performed By: #### C BC ####[facility] Vzpskbwcdc[address] [place], [place] [address]Dr. Donna Malone Hemoglobin (Bld) [Mass/Vol] 12.1 g/dL Critically low 14.0-18.0 [facility] Comment on above: Performed By: #### C BC ####[facility] Emkvfoewnr6815 [place] [address]Dr. Donna Malone IG # 0.03 10e3/ul Normal 0.00-0.03 [facility] Comment on above: Performed By: #### C BC ####[facility] Epnphijzrt2782 [place] [address]Dr. Donna Malone IG % 0.4 % Normal 0.0-0.5 [facility] Comment on above: Performed By: #### C BC ####[facility] Ptfduqldyk80[address] [place], [place] [address]Dr. Donna Malone LYMPH # 1.3 103/ul Normal 1.2-3.8 [facility] Comment on above: Performed By: #### C BC ####[facility] Uuffifawtg7358 [place] [id number]. Donna Malone Lymphocytes/100 WBC (Bld) 18.3 % Critically low 20.5-60.0 [facility] Comment on above: Performed By: #### C BC ####[facility] Naiioneous0312 [place] [id number]. Donna Malone MANUAL DIFF REQ NO Normal [facility] Comment on above: Performed By: #### C BC ####[facility] Yhkaaallba6305 [place] [phone]. Donna Malone MCH (RBC) [Entitic mass] 30.1 pg Normal 25.9-34.0 [facility] Comment on above: Performed By: #### C BC ####[facility] Izrlruiers33[address] [place] [address]Dr. Donna Malone MCHC (RBC) [Mass/Vol] 32.4 g/dL Normal 29.9-35.2 [facility] Comment on above: Performed By: #### C BC ####[facility] Rykfaetjhy1052 [place] [phone]. Donna Malone MCV (RBC) [Entitic vol] 92.8 fL Normal 80.0-94.0 [facility] Comment on above: Performed By: #### C BC ####[facility] [id number] [place] [id number]. Donna Faisal MONO # 0.6 103/ul Normal 0.3-0.8 [facility] Comment on above: Performed By: #### C BC ####[facility] [address] [place] [id number]. Donna Malone Monocytes/100 WBC (Bld) 7.6 % Normal 1.7-12.0 [facility] Comment on above: Performed By: #### C BC ####[facility] [address] [place] [address]Dr. Donna Malone NEUT # 5.2 103/ul Normal 1.4-6.5 [facility] Comment on above: Performed By: #### C BC ####[facility] [address] [place], [place] [address]Nw. Donna Malone Neutrophils/100 WBC (Bld) 71.0 % Normal 43.0-75.0 [facility] Comment on above: Performed By: #### C BC ####[facility] [address] [place], [place] [address]Hq. Donna Malone Platelet mean volume (Bld) [Entitic vol] 11.6 fL Normal 9.5-13.5 [facility] Comment on above: Performed By: #### C BC ####[facility] [address] [place], [place] [address]Th. Donna Malone PLT 237 103/ul Normal 150-450 [facility] Comment on above: Performed By: #### C BC ####[facility] [address] [place], [place] [address]Yu. Donna Malone RBC 4.02 106/ul Critically low 4.70-6.10 [facility] Comment on above: Performed By: #### C BC ####[facility] Mysqzq[address] [place], [place] [address]Gw. Donna Malone WBC 7.3 103/ul Normal 4.0-11.0 [facility] Comment on above: Performed By: #### C BC ####[facility] [address] [place], [place] [address]Hw. Donna Malone [facility]on SARS-CoV-2 (COVID-19) RNA JOSÉ MIGUEL+probe Ql (Unsp spec) Not detected Normal NOT DETECTED [facility] Comment on above: Result [...] for this test is supported by the General Partner of Health and Human Service's declaration that [...] be used). Performed By: #### C VDTBH ####[facility] [address] [place] [address]Dr. Donna Malone LACTATE/LACTIC ACIDon 2021 Lactate [Moles/Vol] 1.3 mmol/L Normal 0.4-1.9 [facility] Comment on above: Performed By: #### L ACT ####[facility] [address] [place], [place] [address]Dr. Donna Malone PROF 14(COMP METB)on 022 Albumin [Mass/Vol] 2.9 g/dL Critically low 3.4-5.0 [facility] Comment on above: Performed By: #### C MARTI, HSTROPN ####[facility] [address] [place] [address]Dr. Donna Malone Albumin/Globulin [Mass ratio] 0.7 {ratio} Normal [facility] Comment on above: Performed By: #### C MARTI, HSTROPN ####[facility] [address] [place], [place] [address]Dr. Donna Malone ALP [Catalytic activity/Vol] 45 U/L Critically low 46-116 [facility] Comment on above: Performed By: #### C MARTI, HSTROPN ####[facility] [address]fs[address] [place] [address]Dr. Donna Malone ALT [Catalytic activity/Vol] 12 U/L Critically low 16-63 [facility] Comment on above: Performed By: #### C MARTI, HSTROPN ####[facility] [address] [place] [address]Dr. Donna Malone Anion gap [Moles/Vol] 10.9 mmol/L Normal [facility] Comment on above: Performed By: #### C MARTI, HSTROPN ####[facility] [address]tx[address] [place] [address]Dr. Donna Malone AST [Catalytic activity/Vol] 10 U/L Critically low 15-37 [facility] Comment on above: Performed By: #### C MARTI, HSTROPN ####[facility] [address] [place] [address]Dr. Donna Malone Bilirubin [Mass/Vol] 0.3 mg/dL Normal 0.2-1.0 [facility] Comment on above: Performed By: #### C MARTI, HSTROPN ####[facility] [address] [place] [address]Dr. Donna Malone Calcium [Mass/Vol] 8.9 mg/dL Normal 8.5-10.1 [facility] Comment on above: Performed By: #### C MARTI, HSTROPN ####[facility] [address] [place], [place] [address]Dr. Donna Malone Chloride [Moles/Vol] 106 mmol/L Normal 98-107 [facility] Comment on above: Performed By: #### C MARTI, HSTROPN ####[facility] [address] [place], [place] [address]Dr. Donna Malone CO2 [Moles/Vol] 29.4 mmol/L Normal 21.0-32.0 [facility] Comment on above: Performed By: #### C MARTI, HSTROPN ####[facility] [address] [place], [place] [address]Dr. Donna Malone Creatinine [Mass/Vol] 1.15 mg/dL Normal 0.70-1.30 [facility] Comment on above: Performed By: #### C MARTI, HSTROPN ####[facility] [address] [place], [place] [address]Dr. Donna Malone EGFR-AF SAUDI ARABIAN >60 Normal >=60 [facility] Comment on above: Performed By: #### C MARTI, HSTROPN ####[facility] [address] [place], [place] [address]Dr. Donna Malone EGFR-NON AF SAUDI ARABIAN >60 Normal >=60 [facility] Comment on above: Performed By: #### C MP, HSTROPN ####[facility] [address] [place] [address]Dr. Donna Malone Globulin (S) [Mass/Vol] 4.2 g/dL Normal [facility] Comment on above: Performed By: #### C MP, HSTROPN ####[facility] [address] [place] [address]Dr. Donna Malone Glucose [Mass/Vol] 116 mg/dL Critically high 74-106 [facility] Comment on above: Performed By: #### C MARTI, HSTROPN ####[facility] [address] [place] [address]Dr. Donna Malone Potassium [Moles/Vol] 4.3 mmol/L Normal 3.5-5.1 [facility] Comment on above: Performed By: #### C MARTI, HSTROPN ####[facility] [address] [place], [place] [address]Dr. Donna Malone Protein [Mass/Vol] 7.1 g/dL Normal 6.4-8.2 [facility] Comment on above: Performed By: #### C MARTI, HSTROPN ####[facility] [address] [place] [address]Dr. Donna Malone Sodium [Moles/Vol] 142 mmol/L Normal 136-145 [facility] Comment on above: Performed By: #### C MP, HSTROPN ####[facility] [address] [place] [address]Dr. Donna Malone Urea nitrogen [Mass/Vol] 9.0 mg/dL Normal 7.0-18.0 [facility] Comment on above: Performed By: #### C MP, HSTROPN ####[facility] [address] [place] [address]Dr. Donna Malone Urea nitrogen/Creatinine [Mass ratio] 7.8 mg/mg Normal [facility] Comment on above: Performed By: #### C MP, HSTROPN ####[facility] [address] [place], [place] [address]Xf. Donna Malone TROPONIN, HIGH SENSITIVITYon 08-10-2022 HSTROP 9.1 pg/mL Normal 4.0-76.1 [facility] Comment on above: Result Comment: CUT- OFF POINTS HAVE BEEN ESTABLISHED BASED ON THE FOURTH UNIVERSAL DEFINITIONS OF MYOCARDIALINFARCTION. THE UPPER REFERENCE LIMIT (URL) OF TROPONIN, DEFINED THE 99TH PERCENTILE OFcTnI DISTRIBUTION IN A REFERENCE POPULATION, HAS BEEN CONFIRMED THE DECISION THRESHOLDFOR [place] DIAGNOSIS. Performed By: #### C MP, HSTROPN ####[facility] [address] [place], [place] [address]Cm. Donna Malone XR KNEE RT 4V or >on 022 XR KNEE RT 4V or > Normal [facility] CT HEAD WO CONon 08-05-2022 CT HEAD WO CON Normal [facility] CT CSPINE WO CONon 2 CT CSPINE WO CON Normal [facility] CT FACIAL BONES WO CONon CT FACIAL BONES WO CON Normal [facility] CT LSPINE WO CONon 2 CT LSPINE WO CON Normal [facility] Glucose Glucometer (BldC) [M ass/Vol]Ordered By: Sang Bauer on 07-20-2022 Glucose [Mass/Vol] 139 mg/dL [facility] Comment on above: Random Glucose Refer ence Range is dependent on time and content of last meal. Glucose of more than 200 mg/dL in a nonstressed, ambulatory subject supports the diagnosis of Diabetes Mellitus. No Panel InformationOrdered By: Sang Bauer on 07-20-2022 Bedside Glucose Comment Glu2: cleaned meter [facility] Cholesterol [Mass/volume] in Serum or PlasmaOrdered By: Sang Bauer on 07-18-2022 Cholesterol [Mass/Vol] 136 mg/dL 140-200 [facility] Comment on above: Chol less than 200 m g/dl low riskChol 201-239 mg/dl borderline riskChol 240 mg/dl and greater high risk Cholesterol in LDL Calc [Mas s/Vol]Ordered By: Sang Bauer on 07-18-2022 Cholesterol in LDL [Mass/Vol] 81 mg/dL 0-100 [facility] Comment on above: LDL ATP III CLASSIFI CATIONLDL less than 100 mg/dL OptimalLDL 100-129 mg/dL Near or above optimalLDL 130-159 mg/dL Borderline highLDL 160-189 mg/dL HighLDL greater than 189 mg/dL Very high Cholesterol in VLDL Calc [Ma ss/Vol]Ordered By: Sang Bauer on 07-18-2022 Cholesterol in VLDL [Mass/Vol] 17 mg/dL [facility] Serum or plasma high density lipoprotein (HDL) cholesterol measurementOrdered By: Sang Bauer on 07-18-2022 Cholesterol in HDL [Mass/Vol] 38 mg/dL 29-71 [facility] Comment on above: HDL CHOL ATP-III CLA SSIFICATION Cardiovascular RiskHDL > or equal to 60 mg/dL LOWHDL < 40 mg/dL HIGH Serum or plasma total choles terol/high density lipoprotein (HDL) cholesterol mass ratOrdered By: Sang Bauer on 07-18-2022 Cholesterol.total/Chol esterol in HDL [Mass ratio] 3.6 {ratio} <5.0 [facility] Triglyceride [Mass/volume] i n Serum or PlasmaOrdered By: Sang Bauer on 07-18-2022 Triglyceride [Mass/Vol] 85 mg/dL 35-149 [facility] Comment on above: TRIG ATP III CLASSIF [...] aPTT Coag (PPP) [Time] 35.8 s 25.1-36.5 [facility] Albumin [Mass/volume] in Ser um or PlasmaOrdered By: Gayathri Leal on 07-17-2022 Albumin [Mass/Vol] 3.1 g/dL 3.2-5.5 [facility] Amphetamine Screen Ql (U)Ord ered By: Gayathri Leal on 07-17-2022 Amphetamines Ql (U) Negative Negative [facility] Automated erythrocytes count in urine sediment (number/area)Ordered By: Gayathri Leal on 07-17-2022 RBC Auto (Urine sed) [#/Area] 3-4 [HPF] 0-4 [facility] Automated leukocytes count i n urine sediment (number/area)Ordered By: Gayathri Leal on 07-17-2022 WBC Auto (Urine sed) [#/Area] 1-2 [HPF] 0-4 [facility] Barbiturates [Presence] in U rineOrdered By: Gayathri Leal on 07-17-2022 Barbiturates Ql (U) Negative Negative [facility] Basophils Auto (Bld) [#/Vol] Ordered By: Gayathri Leal on 07-17-2022 Basophils (Bld) [#/Vol] 0.1 10*3/uL 0.0-0.2 [facility] Basophils/100 WBC Auto (Bld) Ordered By: Gayathri Leal on 07-17-2022 Basophils/100 WBC (Bld) 1.0 % . [facility] Benzodiazepines [Presence] i n UrineOrdered By: Gayathri Leal on 07-17-2022 Benzodiazepines Ql (U) Positive Negative [facility] Bilirubin Test strip Ql (U)O rdered By: Gayathri Leal on 07-17-2022 Bilirubin Ql (U) Negative Negative [facility] COVID CepheidOrdered By: Olya Leal on 07-17-2022 SARS-CoV-2 (COVID-19) Ab IA Ql Negative Negative [facility] Comment on above: This is a duplicate [employer] Xpert Xpress CoV-2/Flu/RSV Plus RNA by RT-PCR result to be used for statistical tracking purpose only. SARS-CoV-2 (COVID-19) RNA JOSÉ MIGUEL+probe Ql (Unsp spec) [facility] Cannabinoids [Presence] in U rine by Screen methodOrdered By: Gayathri Leal on 07-17-2022 Cannabinoids Screen Ql (U) Negative Negative [facility] Comment on above: These are unconfirme d results and should not be used for legal purposes. Drug Cut-Off Concentration: AMPH 1000 ng/mL EWA 200 ng/mL JOHN 200 ng/mL COCM 300 ng/mL OP 300 ng/mL PCP 25 ng/mL THC 20 ng/mL Color Auto (U)Ordered By: Dung Leal on 07-17-2022 Color (U) Yellow Yellow [facility] Creatine kinase [Enzymatic a ctivity/volume] in Serum or PlasmaOrdered By: Gayathri Leal on 07-17-2022 CK [Catalytic activity/Vol] 137 U/L 22-269 [facility] Creatinine and Glomerular fi ltration rate.predicted panel (S/P/Bld)Ordered By: Gayathri Leal on 07-17-2022 Creatinine [Mass/Vol] 1.06 mg/dL 0.64-1.27 [facility] Direct bilirubin measurement Ordered By: Gayathri Leal on 07-17-2022 Bilirubin.direct [Mass/Vol] mg/dL 0.0-0.4 [facility] Eosinophils Auto (Bld) [#/Vo l]Ordered By: Gayathri Leal on 07-17-2022 Eosinophils (Bld) [#/Vol] 0.1 10*3/uL 0.0-0.45 [facility] Eosinophils/100 WBC Auto (Bl d)Ordered By: Gayathri Leal on 07-17-2022 Eosinophils/100 WBC (Bld) 0.7 % . [facility] Erythrocyte distribution wid th Auto (RBC) [Ratio]Ordered By: Gayathri Leal on 07-17-2022 Erythrocyte distribution width (RBC) [Ratio] 15.8 % 12.0-14.8 [facility] Estimated glomerular filtrat ion rate (GFR) non- AmericanOrdered By: Gayathri Leal on 07-17-2022 GFR/1.73 sq M.predicted among non-blacks MDRD (S/P/Bld) [Vol rate/Area] > 60 mL/Min [facility] Globulin Calc (S) [Mass/Vol] Ordered By: Gayathri Leal on 07-17-2022 Globulin (S) [Mass/Vol] 3.0 g/dL [facility] Glucose mean value [Mass/vol ume] in Blood Estimated from glycated hemoglobinOrdered By: Sang Bauer on 07-17-2022 Average glucose Estimated from glycated hemoglobin (Bld) [Mass/Vol] 114 mg/dL [facility] Hematocrit Auto (Bld) [Volum e fraction]Ordered By: Gayathri Leal on 07-17-2022 Hematocrit (Bld) [Volume fraction] 37.3 % 38.8-50.0 [facility] Hemoglobin A1c percentageOrd ered By: Sang Bauer on 07-17-2022 HbA1c (Bld) [Mass fraction] 5.6 % 4.3-5.6 [facility] Comment on above: Increased risk for d iabetes: 5.7 - 6.4diabetes: >6.4glycemic control for adults with diabetes: <7.0 Hemoglobin [Mass/volume] in BloodOrdered By: Gayathri Leal on 07-17-2022 Hemoglobin (Bld) [Mass/Vol] 12.3 g/dL 13.0-17.0 [facility] Ketones Auto test strip (U) [Mass/Vol]Ordered By: Gayathri Leal on 07-17-2022 Ketones (U) [Mass/Vol] 2+ Negative [facility] Laboratory - Chemistry and C hemistry - challengeOrdered By: Gayathri Leal on 07-17-2022 Natriuretic peptide B (Bld) [Mass/Vol] 116.0 pg/mL 5-100 [facility] Laboratory - CoagulationOrde red By: Gayathri Leal on 07-17-2022 PT Coag (PPP) [Time] 12.5 s 9.0-12.9 [facility] Laboratory - Drug toxicology Ordered By: Gayathri Leal on 07-17-2022 Opiates Ql (U) Negative Negative [facility] Laboratory - Hematology and Cell countsOrdered By: Gayathri Leal on 07-17-2022 Nucleated RBC/100 WBC (Bld) [Ratio] 0.1 % 0-0.5 [facility] Laboratory - UrinalysisOrder ed By: Gayathri Leal on 07-17-2022 Hyaline casts LM Ql (Urine sed) None seen [LPF] 0-8 [facility] Leukocytes [#/volume] in Blo od by Automated countOrdered By: Gayathri Leal on 07-17-2022 WBC (Bld) [#/Vol] 7.8 10*3/uL 4.5-11.0 [facility] Lymphocytes Auto (Bld) [#/Vo l]Ordered By: Gayathri Leal on 07-17-2022 Lymphocytes (Bld) [#/Vol] 2.3 10*3/uL 1.00-4.8 [facility] Lymphocytes/100 WBC Auto (Bl d)Ordered By: Gayathri Leal on 07-17-2022 Lymphocytes/100 WBC (Bld) 29.5 % . [facility] MCH Auto (RBC) [Entitic mass ]Ordered By: Gayathri Leal on 07-17-2022 MCH (RBC) [Entitic mass] 30.2 pg 27.5-35.2 [facility] MCHC Auto (RBC) [Mass/Vol]Or dered By: Gayathri Leal on 07-17-2022 MCHC (RBC) [Mass/Vol] 33.1 g/dL 32.5-35.6 [facility] MCV Auto (RBC) [Entitic vol] Ordered By: Gayathri Leal on 07-17-2022 MCV (RBC) [Entitic vol] 91.5 fL 83.5-101 [facility] Monocyte %Ordered By: Zeinab Leal on 07-17-2022 Monocyte % 20 umol/L [facility] Monocytes Auto (Bld) [#/Vol] Ordered By: Gayathri Leal on 07-17-2022 Monocytes (Bld) [#/Vol] 0.4 10*3/uL 0.0-0.8 [facility] Monocytes/100 WBC Auto (Bld) Ordered By: Gayathri Leal on 07-17-2022 Monocytes/100 WBC (Bld) 5.4 % . [facility] Neutrophils Auto (Bld) [#/Vo l]Ordered By: Gayathri Leal on 07-17-2022 Neutrophils (Bld) [#/Vol] 4.9 10*3/uL 1.8-7.7 [facility] Neutrophils/100 WBC Auto (Bl d)Ordered By: Gayathri Leal on 07-17-2022 Neutrophils/100 WBC (Bld) 63.4 % . [facility] Nitrite Test strip Ql (U)Ord ered By: Gayathri Leal on 07-17-2022 Nitrite Ql (U) Negative Negative [facility] No Panel InformationOrdered By: Gayathri Leal on 07-17-2022 Estimated GFR () > 60 mL/Min [facility] Comment on above: GFR estimated refere nce range: According to KDOQI guidelines, <60 ml/min/1.73m2 is sufficient to diagnose a patient with chronic kidney disease. Pharmacy Creatinine Clearance (Chem N/A [facility] Phencyclidine Screen Ql (U)O rdered By: Gayathri Leal on 07-17-2022 Phencyclidine Ql (U) Negative Negative [facility] Platelet mean volume Auto (B ld) [Entitic vol]Ordered By: Gayathri Leal on 07-17-2022 Platelet mean volume (Bld) [Entitic vol] 10.2 fL 6.6-10.1 [facility] Platelet poor plasma interna tional normalized ratio (INR) by coagulation assay (relatOrdered By: Gayathri Leal on 07-17-2022 INR Coag (PPP) [Relative time] 1.1 {INR} [facility] Comment on above: INR Therapeutic Rang e [...] 150-450 [facility] Protein Auto test strip (U) [Mass/Vol]Ordered By: Gayathri Leal on 07-17-2022 Protein (U) [Mass/Vol] Negative Negative [facility] Protein [Mass/volume] in Ser um or PlasmaOrdered By: Gayathri Leal on 07-17-2022 Protein [Mass/Vol] 6.1 g/dL 6.1-7.9 [facility] RBC Auto (Bld) [#/Vol]Ordere d By: Gayathri Leal on 07-17-2022 RBC (Bld) [#/Vol] 4.07 10*6/uL 3.90-5.60 [facility] Serum or plasma alanine del valle otransferase measurement without P-5'-P (enzymatic activiOrdered By: Gayathri Leal on 07-17-2022 ALT No additional P-5'-P [Catalytic activity/Vol] 13 U/L 1060 [facility] Serum or plasma albumin/glob ulin mass ratioOrdered By: Gayathri Leal on 07-17-2022 Albumin/Globulin [Mass ratio] 1.0 {ratio} [facility] Serum or plasma alkaline gail sphatase measurement (enzymatic activity/volume)Ordered By: Gayathri Leal on 07-17-2022 ALP [Catalytic activity/Vol] 37 U/L 32-92 [facility] Serum or plasma anion gap de terminationOrdered By: Gayathri Leal on 07-17-2022 Anion gap [Moles/Vol] 12.1 mmol/L 6.0-15.0 [facility] Serum or plasma aspartate am inotransferase measurement (enzymatic activity/volume)Ordered By: Gayathri Leal on 07-17-2022 AST [Catalytic activity/Vol] 15 U/L 10-42 [facility] Serum or plasma calcium deepti urement (mass/volume)Ordered By: Gayathri Leal on 07-17-2022 Calcium [Mass/Vol] 8.8 mg/dL 8.2-10.2 [facility] Serum or plasma chloride deepak surement (moles/volume)Ordered By: Gayathri Leal on 07-17-2022 Chloride [Moles/Vol] 108 mmol/L 95-114 [facility] Serum or plasma creatine kin ase MB (CKMB)/total creatine kinase (CK) ratio by calculaOrdered By: Gayathri Leal on 07-17-2022 CK.MB Calc [Catalytic fraction] 2.6 % 0.00-2.50 [facility] Serum or plasma creatine kin ase MB measurement (mass/volume)Ordered By: Gayathri Leal on 07-17-2022 CK.MB [Mass/Vol] 3.6 ng/mL 0.6-6.3 [facility] Serum or plasma glucose deepti urement (mass/volume)Ordered By: Gayathri Leal on 07-17-2022 Glucose [Mass/Vol] 91 mg/dL 70-100 [facility] Comment on above: ADA recommended refe rence rangeRandom Glucose Reference Range is dependent on time and content of last meal. Glucose of more than 200 mg/dL in a nonstressed, ambulatory subject supports the diagnosis of Diabetes Mellitus. Serum or plasma non-glucuron idated bilirubin measurement (mass/volume)Ordered By: Gayathri Leal on 07-17-2022 Bilirubin.indirect [Mass/Vol] TNP [facility] Comment on above: Test not performed Serum or plasma potassium me asurement (moles/volume)Ordered By: Gayathri Leal on 07-17-2022 Potassium [Moles/Vol] 4.0 mmol/L 3.5-5.1 [facility] Serum or plasma sodium measu rement (moles/volume)Ordered By: Gayathri Leal on 07-17-2022 Sodium [Moles/Vol] 139 mmol/L 136-146 [facility] Serum or plasma total biliru bin measurement (mass/volume)Ordered By: Gayathri Leal on 07-17-2022 Bilirubin [Mass/Vol] 0.8 mg/dL 0.3-1.2 [facility] Serum or plasma total carbon dioxide measurement (moles/volume)Ordered By: Gayathri Leal on 07-17-2022 CO2 [Moles/Vol] 22.9 mmol/L 22.0-30.0 [facility] Serum or plasma urea nitroge n measurement (mass/volume)Ordered By: Gayathri Leal on 07-17-2022 Urea nitrogen [Mass/Vol] 12 mg/dL 9-23 [facility] Specific gravity Auto test s trip (U) [Rel density]Ordered By: Gayathri Leal on 07-17-2022 Specific gravity (U) [Rel density] 1.024 1.001-1.03 0 [facility] Squamous epithelial cells de tection in urine sediment by light microscopyOrdered By: Gayathri Leal on 07-17-2022 Epithelial cells.squamous LM Ql (Urine sed) None seen [HPF] 0-2 [facility] Troponin I.cardiac [Mass/vol ume] in Serum or Plasma by High sensitivity methodOrdered By: Sang Bauer on 07-17-2022 Troponin I.cardiac High sensitivity method [Mass/Vol] 7 pg/mL 0-20 [facility] Urine bacteria detection by automated methodOrdered By: Gayathri Leal on 07-17-2022 Bacteria Auto Ql (U) None seen None Seen [facility] Urine clarity by refractomet ry automatedOrdered By: Gayathri Leal on 07-17-2022 Clarity Refractometry automated (U) Clear Clear [facility] Urine cocaine detectionOrder ed By: Gayathri Leal on 07-17-2022 Cocaine Ql (U) Negative Negative [facility] Urine glucose measurement by automated test strip (mass/volume)Ordered By: Gayathri Leal on 07-17-2022 Glucose Auto test strip (U) [Mass/Vol] Normal mg/dL Normal [facility] Urine hemoglobin detection b y automated test stripOrdered By: Gayathri Leal on 07-17-2022 Hemoglobin Auto test strip Ql (U) Negative Negative [facility] Urine leukocyte esterase det ection by automated test stripOrdered By: Gayathri Leal on 07-17-2022 Leukocyte esterase Auto test strip Ql (U) 1+ Negative [facility] Urobilinogen Auto test strip (U) [Mass/Vol]Ordered By: Gayathri Leal on 07-17-2022 Urobilinogen (U) [Mass/Vol] Normal mg/dL Normal [facility] pH Auto test strip (U)Ordere d By: Gayathri Leal on 07-17-2022 pH (U) 6.5 [pH] 5.0-9.0 [facility] AMMONIAon 07-16-2022 Ammonia (P) [Moles/Vol] 44 umol/L Critically high 11-32 [facility] Comment on above: Performed By: #### A MM ####[facility] Rhvlsmxjmm[address] [place], [place] [address]Dr. Donna Malone BNPon 07-16-2022 Natriuretic peptide B (Bld) [Mass/Vol] 236.0 pg/mL Normal <=900.0 [facility] Comment on above: Performed By: #### C MP, BNP ####[facility] Qcrkdjjlen8939[address] [place], [place] [address]Dr. Donna Malone CBC AUTO DIFFon 07-16-2022 BASO # 0.1 103/ul Normal 0.0-0.1 [facility] Comment on above: Performed By: #### C BC ####[facility] Xiutaqbmvw[address] [place], [place] [address]Dr. Donna Malone Basophils/100 WBC (Bld) 1.0 % Normal 0.2-2.0 [facility] Comment on above: Performed By: #### C BC ####[facility] Lpnlpdtiqp38[address] [place], [place] [address]Dr. Donna Malone EO # 0.2 103/ul Normal 0.0-0.7 [facility] Comment on above: Performed By: #### C BC ####[facility] Uknizsdzou74[address] [place], [place] [address]Dr. Donna Malone Eosinophils/100 WBC (Bld) 3.3 % Normal 0.9-7.0 [facility] Comment on above: Performed By: #### C BC ####[facility] Slzmjmerwa8212[address] [place], [place] [address]Dr. Donna Malone Erythrocyte distribution width (RBC) [Ratio] 15.1 % Critically high 11.0-15.0 [facility] Comment on above: Performed By: #### C BC ####[facility] Eavdaiuaus8078[address] [place], [place] [address]Dr. Donna Malone Hematocrit (Bld) [Volume fraction] 36.1 % Critically low 42.0-54.0 [facility] Comment on above: Performed By: #### C BC ####[facility] [address]bs[address] [place] [phone]. Donna Malone Hemoglobin (Bld) [Mass/Vol] 12.0 g/dL Critically low 14.0-18.0 [facility] Comment on above: Performed By: #### C BC ####[facility] [address]evtsckfds[address] [place] [phone]. Donna Malone IG # 0.01 10e3/ul Normal 0.00-0.03 [facility] Comment on above: Performed By: #### C BC ####[facility] Glynvgdhbo[address] [place] [address]Dr. Donna Malone IG % 0.2 % Normal 0.0-0.5 [facility] Comment on above: Performed By: #### C BC ####[facility] Liipkcrdyf02[address] [place], [place] [address]Dr. Donna Malone LYMPH # 2.5 103/ul Normal 1.2-3.8 [facility] Comment on above: Performed By: #### C BC ####[facility] Jdhtoyfydz75[address] [place] [address]Dr. Donna Malone Lymphocytes/100 WBC (Bld) 41.1 % Normal 20.5-60.0 [facility] Comment on above: Performed By: #### C BC ####[facility] Iyoacadmim9[address] [place], [place] [address]Dr. Donna Malone MANUAL DIFF REQ NO Normal [facility] Comment on above: Performed By: #### C BC ####[facility] Mvnaivmkqg1904 [place] [phone]. Donna Malone MCH (RBC) [Entitic mass] 30.6 pg Normal 25.9-34.0 [facility] Comment on above: Performed By: #### C BC ####[facility] Uvjszmfrff3165 [place] [phone]. Donna Malone MCHC (RBC) [Mass/Vol] 33.2 g/dL Normal 29.9-35.2 [facility] Comment on above: Performed By: #### C BC ####[facility] Kiimhfameb49[address] [place] [phone]. Donna Malone MCV (RBC) [Entitic vol] 92.1 fL Normal 80.0-94.0 [facility] Comment on above: Performed By: #### C BC ####[facility] Qvemctvmlh5941 [place] [phone]. Donna Malone MONO # 0.5 103/ul Normal 0.3-0.8 [facility] Comment on above: Performed By: #### C BC ####[facility] Wpdahelczb0790 [place] [phone]. Donna Malone Monocytes/100 WBC (Bld) 7.4 % Normal 1.7-12.0 [facility] Comment on above: Performed By: #### C BC ####[facility] Wjvketsxnl99[address] [place], [place] [address]Dr. Donna Malone NEUT # 2.9 103/ul Normal 1.4-6.5 [facility] Comment on above: Performed By: #### C BC ####[facility] Kjcojsgnev[address] [place], [place] [id number]. Donna Malone Neutrophils/100 WBC (Bld) 47.0 % Normal 43.0-75.0 [facility] Comment on above: Performed By: #### C BC ####[facility] Bzaechloua[address] [place], [place] [id number]. Donna Malone Platelet mean volume (Bld) [Entitic vol] 11.4 fL Normal 9.5-13.5 [facility] Comment on above: Performed By: #### C BC ####[facility] Xqaeazfgok68[address] [place] [phone]. Donna Malone PLT 206 103/ul Normal 150-450 [facility] Comment on above: Performed By: #### C BC ####[facility] Bbjgtwxlxl3663 [place] [phone]. Donna Faisal RBC 3.92 106/ul Critically low 4.70-6.10 [facility] Comment on above: Performed By: #### C BC ####[facility] Nlhiudwsar5356 [place] [address]Dr. Donna Malone WBC 6.1 103/ul Normal 4.0-11.0 [facility] Comment on above: Performed By: #### C BC ####[facility] Awqfjqnxzw14[address] [place] [address]Dr. Donna Malone ECHO LIMITED STUDYon 022 ECHO LIMITED STUDY Normal [facility] MRI BRAIN WO CONon 2 MRI BRAIN WO CON Normal [facility] PROF 14(COMP METB)on 022 Albumin [Mass/Vol] 2.8 g/dL Critically low 3.4-5.0 [facility] Comment on above: Performed By: #### C MP, BNP ####[facility] Uxvkrzjvmg[address] [place], [place] [address]Dr. Donna Malone Albumin/Globulin [Mass ratio] 0.9 {ratio} Normal [facility] Comment on above: Performed By: #### C MP, BNP ####[facility] Jmirobdcfm0426[address] [place], [place] [address]Dr. Donna Malone ALP [Catalytic activity/Vol] 36 U/L Critically low 46-116 [facility] Comment on above: Performed By: #### C MP, BNP ####[facility] Npcakhgfdo[address] [place] [address]Dr. Donna Malone ALT [Catalytic activity/Vol] 13 U/L Critically low 16-63 [facility] Comment on above: Performed By: #### C MP, BNP ####[facility] Vvztdifcdz6[address] [place] [address]Dr. Donna Malone Anion gap [Moles/Vol] 10.4 mmol/L Normal [facility] Comment on above: Performed By: #### C MP, BNP ####[facility] Ktvzuqpxcf5273 [place] [address]Dr. Donna Malone AST [Catalytic activity/Vol] 13 U/L Critically low 15-37 [facility] Comment on above: Performed By: #### C MP, BNP ####[facility] Vqdlzncfmr4172 [place] [address]Dr. Donna Malone Bilirubin [Mass/Vol] 0.3 mg/dL Normal 0.2-1.0 [facility] Comment on above: Performed By: #### C MP, BNP ####[facility] Hkislrikib38[address] [place] [address]Dr. Donna Malone Calcium [Mass/Vol] 8.2 mg/dL Critically low 8.5-10.1 Th [facility] Comment on above: Performed By: #### C MP, BNP ####[facility] Bsvftcqdde4190 [place] [address]Dr. Donna Malone Chloride [Moles/Vol] 108 mmol/L Critically high 98-107 [facility] Comment on above: Performed By: #### C MP, BNP ####[facility] Ntkhuhgrph9[address] [place], [place] [address]Dr. Donna Malone CO2 [Moles/Vol] 25.5 mmol/L Normal 21.0-32.0 [facility] Comment on above: Performed By: #### C MP, BNP ####[facility] Rkrptxibgd322[address] [place], [place] [address]Dr. Donna Malone Creatinine [Mass/Vol] 0.92 mg/dL Normal 0.70-1.30 [facility] Comment on above: Performed By: #### C MP, BNP ####[facility] Lblmwmduxv3064[address] [place], [place] [address]Dr. Donna Malone EGFR-AF SAUDI ARABIAN >60 Normal >=60 [facility] Comment on above: Performed By: #### C MP, BNP ####[facility] Zzxofntyjk70[address] [place] [address]Dr. Donna Malone EGFR-NON AF SAUDI ARABIAN >60 Normal >=60 [facility] Comment on above: Performed By: #### C MP, BNP ####[facility] Uxucwmbpta9177[address] [place], [place] [address]Dr. Donna Malone Globulin (S) [Mass/Vol] 3.2 g/dL Normal [facility] Comment on above: Performed By: #### C MP, BNP ####[facility] Kwbkwvlzoe0523 [place] [phone]. Donna Malone Glucose [Mass/Vol] 76 mg/dL Normal 74-106 [facility] Comment on above: Performed By: #### C MP, BNP ####[facility] Nrtbmpcpgi5795 [place] [address]Dr. Donna Malone Potassium [Moles/Vol] 3.9 mmol/L Normal 3.5-5.1 [facility] Comment on above: Performed By: #### C MP, BNP ####[facility] Udsagpfwgz8701 [place] [address]Dr. Donna Malone Protein [Mass/Vol] 6.0 g/dL Critically low 6.4-8.2 Th [facility] Comment on above: Performed By: #### C MP, BNP ####[facility] Yolrqctxvo4285[address] [place], [place] [address]Dr. Donna Malone Sodium [Moles/Vol] 140 mmol/L Normal 136-145 [facility] Comment on above: Performed By: #### C MP, BNP ####[facility] Fqjngdveos[address] [place], [place] [address]Dr. Donna Malone Urea nitrogen [Mass/Vol] 12.0 mg/dL Normal 7.0-18.0 [facility] Comment on above: Performed By: #### C MP, BNP ####[facility] Vupytjulqf64[address] [place], [place] [address]Dr. Donna Malone Urea nitrogen/Creatinine [Mass ratio] 13.0 mg/mg Normal [facility] Comment on above: Performed By: #### C MP, BNP ####[facility] Gjtbqsuely12[address] [place], [place] [address]Dr. Donna Malone VIT B12 AND FOLATEon 022 Cobalamin (Vitamin B12) [Mass/Vol] 532.0 pg/mL Normal 193.0-986. 0 [facility] Comment on above: Performed By: #### B 12FOL ####[facility] Aompiwfofw[address] [place], [place] [address]Dr. Donna Malone FOLATE 13.60 ng/mL Normal 8.60-58.90 [facility] Comment on above: Performed By: #### B 12FOL ####[facility] Aqqbbuspuv[address] [place] [address]Dr. Donna Malone AMMONIAon 07-15-2022 Ammonia (P) [Moles/Vol] 23 umol/L Normal 32 [facility] Comment on above: Performed By: #### A MM ####[facility] Wtomckpmha[address] [place], [place] [address]Dr. Donna Malone BLOOD GASES BTYon 07-15-2022 02 MODE ROOM AIR [facility] Comment on above: Performed By: #### A BG ####[facility] Hawxjtdeeq[address] [place], [place] [address]Dr. Donna Malone ALLENS TEST Positive [facility] Comment on above: Performed By: #### A BG ####[facility] Ovmrytzcin079[address] [place], [place] [address]Dr. Donna Malone Base excess Calc (Bld) [Moles/Vol] -1.3000 mmol/L Normal -2.0-2.0 [facility] Comment on above: Performed By: #### A BG ####[facility] Efewymzxgi684[address] [place], [place] [address]Dr. Donna Malone BIPAP PRESSURE [facility] Comment on above: Performed By: #### A BG ####[facility] Vxqexmzgzm7[address] [place], [place] [address]Dr. Donna Malone CPAP [facility] Comment on above: Performed By: #### A BG ####[facility] Dzdrcbwdtu9[address] [place], [place] [address]Dr. Donna Malone FIO2 [facility] Comment on above: Performed By: #### A BG ####[facility] Tzlovrhwdt9418[address] [place], [place] [address]Dr. Donna Malone HCO3 (Bld) [Moles/Vol] 22.7 mmol/L Normal 22.0-26.0 [facility] Comment on above: Performed By: #### A BG ####[facility] Ofwxlkvurr342[address] [place], [place] [id number]. Donna Malone LPM Normal [facility] Comment on above: Performed By: #### A BG ####[facility] Bgpcauibzu[address] [place], [place] [address]Dr. Donna Malone MINUTE VOLUME Normal [facility] Comment on above: Performed By: #### A BG ####[facility] Namrflwszr1316[address] [place], [place] [address]Dr. Donna Malone Oxygen (Bld) [Partial pressure] 77.7 mm[Hg] Critically low 80.0-100.0 [facility] Comment on above: Performed By: #### A BG ####[facility] Ynikgqqdzi3564[address] [place], [place] [address]Dr. Donna Malone Oxygen saturation in Blood 95.9 % Normal 95.0-100.0 [facility] Comment on above: Performed By: #### A BG ####[facility] Rnzaspgwvx4334[address] [place], [place] [address]Dr. Donna Malone PCO2 33.0 mmHg Critically low 35.0-45.0 [facility] Comment on above: Performed By: #### A BG ####[facility] Xjzpomwkst06[address] [place], [place] [address]Dr. Donna Malone PEEP [facility] Comment on above: Performed By: #### A BG ####[facility] Wmmijuoapb[address] [place], [place] [address]Dr. Donna Malone pH (Bld) 7.446 [pH] Normal 7.350-7.45 0 [facility] Comment on above: Performed By: #### A BG ####[facility] Xqhbngiscg9654[address] [place], [place] [address]Dr. Donna Malone PIP [place] [facility] Comment on above: Performed By: #### A BG ####[facility] Kpjbcvbsua25[address] [place], [place] [address]Dr. Donna Malone PS Normal [facility] Comment on above: Performed By: #### A BG ####[facility] Flxtjfueoo049[address] [place], [place] [address]Dr. Donna Malone PUNCTURE SITE RB Normal [facility] Comment on above: Performed By: #### A BG ####[facility] Vgcaikrban34[address] [place] [address]Dr. Donna Malone RATE Normal [facility] Comment on above: Performed By: #### A BG ####[facility] Kqoxjzxgqx20[address] [place] [address]Dr. Donna Malone VENT MODE Normal [facility] Comment on above: Performed By: #### A BG ####[facility] Pyqegjfzqg11[address] [place] [address]Dr. Rubyyvan Malone [place] Normal [facility] Comment on above: Performed By: #### A BG ####[facility] Lrxgchuvhl6[address] [place] [address]Dr. Donna Malone BNPon 07-15-2022 Natriuretic peptide B (Bld) [Mass/Vol] 111.0 pg/mL Normal <=900.0 [facility] Comment on above: Performed By: #### B PROPERTY MANAGEMENT SUPERVISOR, CMP, CMADM ####[facility] Zsefinebru94[address] [place] [address]Dr. Donna Malone CARDIAC MJ 3-6on 2 CK [Catalytic activity/Vol] 102 U/L Normal 39-308 [facility] Comment on above: Performed By: #### C MREP ####[facility] Tjzfjcussh54[address] [place] [address]Dr. Donna Malone CK.MB [Mass/Vol] 3.67 ng/mL Critically high <=3.60 [facility] Comment on above: Performed By: #### C MREP ####[facility] Wfjtxiqmyy0682 [place] [address]Dr. Donna Malone HSTROP 13.1 pg/mL Normal 4.0-76.1 [facility] Comment on above: Result Comment: CUT- OFF POINTS HAVE BEEN ESTABLISHED BASED ON THE FOURTH UNIVERSAL DEFINITIONS OF MYOCARDIALINFARCTION. THE UPPER REFERENCE LIMIT (URL) OF TROPONIN, DEFINED THE 99TH PERCENTILE OFcTnI DISTRIBUTION IN A REFERENCE POPULATION, HAS BEEN CONFIRMED THE DECISION THRESHOLDFOR [place] DIAGNOSIS. Performed By: #### C MREP ####[facility] [address] [place], [place] [address]Ke. Donna Malone CK [Catalytic activity/Vol] 89 U/L Normal 39-308 [facility] Comment on above: Performed By: #### C MREP ####[facility] Pdgfplighm4696 [place], [place] [address]Ui. Donna Malone CK.MB [Mass/Vol] 3.37 ng/mL Normal <=3.60 [facility] Comment on above: Performed By: #### C MREP ####[facility] Fxwzfcukpk6009 [place] [phone]. Donna Malone HSTROP 11.2 pg/mL Normal 4.0-76.1 [facility] Comment on above: Result Comment: CUT- OFF POINTS HAVE BEEN ESTABLISHED BASED ON THE FOURTH UNIVERSAL DEFINITIONS OF MYOCARDIALINFARCTION. THE UPPER REFERENCE LIMIT (URL) OF TROPONIN, DEFINED THE 99TH PERCENTILE OFcTnI DISTRIBUTION IN A REFERENCE POPULATION, HAS BEEN CONFIRMED THE DECISION THRESHOLDFOR [place] DIAGNOSIS. Performed By: #### C MREP ####[facility] Wsosnrysjj7137 [place] [phone]. Donna Malone CARDIAC MJ ADMITon 022 CK [Catalytic activity/Vol] 76 U/L Normal 39-308 [facility] Comment on above: Performed By: #### B PROPERTY MANAGEMENT SUPERVISOR, CMP, CMADM ####[facility] Tfimeyclwo8488 [place] [phone]. Donna Malone CK.MB [Mass/Vol] 2.59 ng/mL Normal <=3.60 [facility] Comment on above: Performed By: #### B PROPERTY MANAGEMENT SUPERVISOR, CMP, CMADM ####[facility] Zsnneuzpye9866 [place] [phone]. Donna Malone HSTROP 10.1 pg/mL Normal 4.0-76.1 [facility] Comment on above: Result Comment: CUT- OFF POINTS HAVE BEEN ESTABLISHED BASED ON THE FOURTH UNIVERSAL DEFINITIONS OF MYOCARDIALINFARCTION. THE UPPER REFERENCE LIMIT (URL) OF TROPONIN, DEFINED THE 99TH PERCENTILE OFcTnI DISTRIBUTION IN A REFERENCE POPULATION, HAS BEEN CONFIRMED THE DECISION THRESHOLDFOR [place] DIAGNOSIS. Performed By: #### B PROPERTY MANAGEMENT SUPERVISOR, CMP, CMADM ####[facility] [address]ivkaxhj[address] [place] [phone]. Rubyyvan Malone BINDU 109 ng/mL Critically high 16-96 [facility] Comment on above: Performed By: #### B PROPERTY MANAGEMENT SUPERVISOR, CMP, CMADM ####[facility] Grpmepczec[address]104 [place] [phone]. Rubyyvan Malone CBC AUTO DIFFon 07-15-2022 BASO # 0.0 103/ul Normal 0.0-0.1 [facility] Comment on above: Performed By: #### C BC ####[facility] Qjamxcvrfq8787 [place] [address]Dr. Donna Malone Basophils/100 WBC (Bld) 0.7 % Normal 0.2-2.0 [facility] Comment on above: Performed By: #### C BC ####[facility] Ugxuixryga336[address] [place], [place] [address]Dr. Donna Malone EO # 0.1 103/ul Normal 0.0-0.7 [facility] Comment on above: Performed By: #### C BC ####[facility] Yjeopzbuvq4[address] [place], [place] [address]Dr. Donna Malone Eosinophils/100 WBC (Bld) 2.3 % Normal 0.9-7.0 [facility] Comment on above: Performed By: #### C BC ####[facility] Wmoparjrgw04[address] [place], [place] [address]Dr. Donna Malone Erythrocyte distribution width (RBC) [Ratio] 15.2 % Critically high 11.0-15.0 [facility] Comment on above: Performed By: #### C BC ####[facility] Thhfolgdlr9678[address] [place], [place] [address]Dr. Donna Malone Hematocrit (Bld) [Volume fraction] 34.8 % Critically low 42.0-54.0 [facility] Comment on above: Performed By: #### C BC ####[facility] Cfplcmpzsp01[address] [place], [place] [address]Dr. Donna Malone Hemoglobin (Bld) [Mass/Vol] 11.4 g/dL Critically low 14.0-18.0 [facility] Comment on above: Performed By: #### C BC ####[facility] Mfastzhkcl5478 [place] [address]DrElizabeth Malone IG # 0.01 10e3/ul Normal 0.00-0.03 [facility] Comment on above: Performed By: #### C BC ####[facility] Jhcjmugmcx0982 [place] [address]DrElizabeth Malone IG % 0.2 % Normal 0.0-0.5 [facility] Comment on above: Performed By: #### C BC ####[facility] Smfyuiczwl88[address] [place], [place] [address]DrElizabeth Malone LYMPH # 1.6 103/ul Normal 1.2-3.8 [facility] Comment on above: Performed By: #### C BC ####[facility] Clrxrqsqtz316[address] [place], [place] [address]DrElizabeth Malone Lymphocytes/100 WBC (Bld) 26.4 % Normal 20.5-60.0 [facility] Comment on above: Performed By: #### C BC ####[facility] Afbayepnck[address] [place], [place] [address]DrElizabeth Malone MANUAL DIFF REQ NO Normal [facility] Comment on above: Performed By: #### C BC ####[facility] Pvxcnsrgwi[address] [place], [place] [address]DrElizabeth Malone MCH (RBC) [Entitic mass] 30.7 pg Normal 25.9-34.0 [facility] Comment on above: Performed By: #### C BC ####[facility] Xwesayfhuc44[address] [place], [place] [address]DrElizabeth Malone MCHC (RBC) [Mass/Vol] 32.8 g/dL Normal 29.9-35.2 [facility] Comment on above: Performed By: #### C BC ####[facility] Mvkwnpebjj4[address] [place], [place] [address]DrElizabeth Malone MCV (RBC) [Entitic vol] 93.8 fL Normal 80.0-94.0 [facility] Comment on above: Performed By: #### C BC ####[facility] Egupdmlzbk4610 [place] [phone]. Donna Malone MONO # 0.5 103/ul Normal 0.3-0.8 [facility] Comment on above: Performed By: #### C BC ####[facility] Cmtxcvspvq4460 [place] [phone]. Donna Malone Monocytes/100 WBC (Bld) 7.5 % Normal 1.7-12.0 [facility] Comment on above: Performed By: #### C BC ####[facility] Cnvxfvirdw0902 [place] [address]Dr. Donna Malone NEUT # 3.8 103/ul Normal 1.4-6.5 [facility] Comment on above: Performed By: #### C BC ####[facility] Oqywmsoolb[address] [place], [place] [address]Dr. Donna Malone Neutrophils/100 WBC (Bld) 62.9 % Normal 43.0-75.0 [facility] Comment on above: Performed By: #### C BC ####[facility] Vcmezgghmj[address] [place], [place] [address]Dr. Donna Malone Platelet mean volume (Bld) [Entitic vol] 11.7 fL Normal 9.5-13.5 [facility] Comment on above: Performed By: #### C BC ####[facility] Aopdgtwtua8884 [place] [phone]. Donna Malone PLT 220 103/ul Normal 150-450 [facility] Comment on above: Performed By: #### C BC ####[facility] Izfubyfmix2516 [place] [phone]. Donna Malone RBC 3.71 106/ul Critically low 4.70-6.10 [facility] Comment on above: Performed By: #### C BC ####[facility] Atztunldmx5180 [place] [phone]. Donna Malone WBC 6.0 103/ul Normal 4.0-11.0 [facility] Comment on above: Performed By: #### C BC ####[facility] Fxtrydprlg8095 [place], [place] [address]Yx. Donna Malone CT CSPINE WO CONon 2 CT CSPINE WO CON Normal [facility] CT HEAD WO CONon 07-15-2022 CT HEAD WO CON Normal [facility] CTA NECK WO W CONon 07-15-20 22 CTA NECK WO W CON Normal [facility] CULTURE URINEon 07-15-2022 CULTURE URINE Culture Observations : LIGHT GROWTH OF MIXED SKIN MICHAEL. NO POTENTIAL PATHOGENS SEEN. Normal [facility] Comment on above: Performed By: #### U RCX ####[facility] Aguiphkjzr28[address] [place], [place] [address]Ru. Donna Malone Covid-19 PCR (CVDTB)on SARS-CoV-2 (COVID-19) RNA JOSÉ MIGUEL+probe Ql (Unsp spec) Not detected Normal NOT DETECTED [facility] Comment on above: Result [...] for this test is supported by the General Partner of Health and Human Service's declaration that [...] be used). Performed By: #### C VDTBH ####[facility] [address]ppuoltxl4846 [place], [place] [address]Cj. Donna Malone DEPAKENE/VALPROICon 07-15-20 22 DEPAKENE 53.6 ug/ml Normal 50.0-100.0 [facility] Comment on above: Performed By: #### V ALP ####[facility] Tyrygagvry[address] [place] [address]Dr. Donna Malone DRUG SCREEN RAPID (URINE)on 07-15-2022 AMP Negative Normal NEGATIVE [facility] Comment on above: Performed By: #### D SHARONA, ERUR ####[facility] Uuwmltmtix[address] [place] [address]Dr. Donna Malone BAR Negative Normal NEGATIVE [facility] Comment on above: Performed By: #### Calvin TABOR, ERUR ####[facility] Twccfufusb[address] [place] [address]Dr. Donna Malone BUP Negative Normal NEGATIVE [facility] Comment on above: Performed By: #### Calvin TABOR, ERUR ####[facility] Vhqudmfvcp76[address] [place] [address]Dr. Donna Malone BZO Positive Abnormal NEGATIVE [facility] Comment on above: Performed By: #### Calvin TABOR, ERUR ####[facility] Yjsdbgyjgz9[address] [place] [address]Dr. Donna Malone EVONNE Negative Normal NEGATIVE [facility] Comment on above: Performed By: #### Calvin TABOR, ERUR ####[facility] Axidtrhwqb[address] [place], [place] [address]Dr. Donna [facility] CUT-OFFS SEE BELOW Normal [facility] Comment on above: Result [...] ng/mL Performed By: #### Calvin TABOR, ERUR ####[facility] Lipqsqaxny09[address] [place] [phone]. Donna Malone DRUG CUT HEADER DRUG CLASS TEST SYST EM CUT-OFF CONCENTRATIONS ARE FOLLOWS: Normal [facility] Comment on above: Performed By: #### D SHARONA, ERUR ####[facility] Ldlrbgrtac4[address] [place] [phone]. Donna Malone mAMP Negative Normal NEGATIVE [facility] Comment on above: Performed By: #### D SHARONA, ERUR ####[facility] Ogwdafxnrb6[address] [place] [phone]. Donna Malone MTD Negative Normal NEGATIVE [facility] Comment on above: Performed By: #### D SHARONA, ERUR ####[facility] Mxaftxydsh78[address] [place] [address]Dr. Donna Malone OPI Negative Normal NEGATIVE [facility] Comment on above: Performed By: #### Calvin TABOR, ERUR ####[facility] Znfzjeqjel2123 [place] [phone]. Yiyvan Malone OXY Negative Normal NEGATIVE [facility] Comment on above: Performed By: #### D SHARONA, ERUR ####[facility] Zdjepbgjzw20[address] [place] [address]Dr. Donna Malone PCP Negative Normal NEGATIVE [facility] Comment on above: Performed By: #### Calvin TABOR, ERUR ####[facility] Vnxxcpejtj0742 [place] [phone]. Donna Malone PPX Negative Normal NEGATIVE [facility] Comment on above: Performed By: #### Calvin TABOR, ERUR ####[facility] Rqxeeqktdz[address] [place] [phone]. Donna Malone TCA Positive Abnormal NEGATIVE [facility] Comment on above: Performed By: #### Calvin TABOR, ERUR ####[facility] Fxekgvlnwi8472 [place] [phone]. Donna Malone THC Negative Normal NEGATIVE [facility] Comment on above: Performed By: #### Calvin TABOR, ERUR ####[facility] Iuwqgzmuxk0740 [place] [phone]. Donna Faisal ER URINE PROFILEon 2 Bilirubin Ql (U) Negative Normal NEGATIVE [facility] Comment on above: Performed By: #### Calvin TABOR, ERUR ####[facility] Llmilhsxgy1810 [place] [address]Dr. Donna Malone Clarity (U) CLEAR Normal CLEAR [facility] Comment on above: Performed By: #### Calvin TABOR, ERUR ####[facility] Sehogybfcl2[address] [place], [place] [address]Dr. Donna Malone Color (U) YELLOW Normal YELLOW [facility] Comment on above: Performed By: #### Calvin TABOR ERUR ####[facility] Akmudswqky[address] [place], [place] [address]Dr. Donna FERNANDEZD A micrscopic examina tion will be performed if indicated. Normal [facility] Comment on above: Performed By: #### Calvin TABOR ERUR ####[facility] Ibfbkamctq8[address] [place], [place] [address]Dr. Donna Malone Glucose Ql (U) Negative Normal NEGATIVE [facility] Comment on above: Performed By: #### WESLY LAUR ####[facility] Bqwhwmkcet05[address] [place], [place] [address]Dr. Donna Malone Hemoglobin Ql (U) Negative Normal NEGATIVE [facility] Comment on above: Performed By: #### Calvin TABOR ERUR ####[facility] Nyvugzqvxt8[address] [place], [place] [address]Dr. Donna Malone Ketones Ql (U) 15 mg/dl Abnormal NEGATIVE [facility] Comment on above: Performed By: #### Calvin TABOR ERUR ####[facility] Rcfgaqcqkb1764[address] [place], [place] [address]Dr. Donna Malone LEUKOCYTES Negative Normal NEGATIVE [facility] Comment on above: Performed By: #### Calvin TABOR, ERUR ####[facility] Jbqcwyclhk0724[address] [place], [place] [address]Dr. Donna Malone Nitrite Ql (U) Negative Normal NEGATIVE [facility] Comment on above: Performed By: #### D SHARONA, ERUR ####[facility] Ucpaexliqo9585 [place] [phone]. Donna Malone pH (U) 6.0 [pH] Normal 5-9 [facility] Comment on above: Performed By: #### D SHARONA, ERUR ####[facility] Oimnzvvwwy28[address] [place] [address]Dr. Donna Malone SPEC GRAVITY >=1.030 Abnormal 1.005-<=1. 025 [facility] Comment on above: Performed By: #### D SHARONA ERUR ####[facility] Pkyrdjeldu3240 [place] [address]Dr. Donna Malone UA PROTEIN TRACE Normal NEGATIVE/ TRACE [facility] Comment on above: Performed By: #### D SHARONA, ERUR ####[facility] Abeomhenob[address] [place], [place] [address]Dr. Donna Malone UR MICRO IND NOT INDICATED Normal [facility] Comment on above: Performed By: #### D WESLY TABORR ####[facility] Xzyxasveig[address] [place], [place] [address]Dr. Donna Malone Urobilinogen Qn (U) 0.2 {Jermain'U}/dL Normal 0.2 - 1. 0 [facility] Comment on above: Performed By: #### Calvin TABOR, ERUR ####[facility] Wbbrshnlqv[address] [place], [place] [address]Dr. Donna Malone ETHANOL (BLD ALC)on 07-15-20 22 ALC NOTE NOTE: 80 mg/dl is th e legal limit for a blood alcohol level Normal [facility] Comment on above: Performed By: #### E TH ####[facility] Yuxaibkdpl[address] [place], [place] [address]Dr. Donna Malone Ethanol [Mass/Vol] mg/dL Normal [facility] Comment on above: Performed By: #### E TH ####[facility] Ahsrlmngij93[address] [place], [place] [address]Dr. Donna Malone LACTATE/LACTIC ACIDon 2021 Lactate [Moles/Vol] 1.3 mmol/L Normal 0.4-1.9 [facility] Comment on above: Performed By: #### L ACT ####[facility] Gqwowcxeyu54[address] [place] [address]Dr. Donna Malone PROF 14(COMP METB)on 022 Albumin [Mass/Vol] 2.9 g/dL Critically low 3.4-5.0 Th [facility] Comment on above: Performed By: #### B PROPERTY MANAGEMENT SUPERVISOR, CMP, CMADM ####[facility] Wzmfjrsviz9108 [place] [address]Dr. Donna Malone Albumin/Globulin [Mass ratio] 0.9 {ratio} Normal [facility] Comment on above: Performed By: #### B PROPERTY MANAGEMENT SUPERVISOR, CMP, CMADM ####[facility] Zmeqegctqm3389 [place] [address]Dr. Donna Malone ALP [Catalytic activity/Vol] 37 U/L Critically low 46-116 [facility] Comment on above: Performed By: #### B PROPERTY MANAGEMENT SUPERVISOR, CMP, CMADM ####[facility] Qysdhehigr4598 [place] [address]Dr. Donna Malone ALT [Catalytic activity/Vol] 10 U/L Critically low 16-63 [facility] Comment on above: Performed By: #### B PROPERTY MANAGEMENT SUPERVISOR, CMP, CMADM ####[facility] Dlrevvzldg1547 [place] [address]Dr. Donna Malone Anion gap [Moles/Vol] 8.0 mmol/L Normal [facility] Comment on above: Performed By: #### B PROPERTY MANAGEMENT SUPERVISOR, CMP, CMADM ####[facility] Ukujfzsjba4541 [place] [address]Dr. Donna Malone AST [Catalytic activity/Vol] 12 U/L Critically low 15-37 [facility] Comment on above: Performed By: #### B PROPERTY MANAGEMENT SUPERVISOR, CMP, CMADM ####[facility] Mkwnxmuyaa4917 [place] [address]Dr. Donna Malone Bilirubin [Mass/Vol] 0.3 mg/dL Normal 0.2-1.0 [facility] Comment on above: Performed By: #### B PROPERTY MANAGEMENT SUPERVISOR, CMP, CMADM ####[facility] Tsqdpskcre0410 [place] [address]Dr. Donna Malone Calcium [Mass/Vol] 7.9 mg/dL Critically low 8.5-10.1 Th [facility] Comment on above: Performed By: #### B PROPERTY MANAGEMENT SUPERVISOR, CMP, CMADM ####[facility] Uyurbdrxey4911 [place] [address]Dr. Donna Malone Chloride [Moles/Vol] 107 mmol/L Normal 98-107 [facility] Comment on above: Performed By: #### B PROPERTY MANAGEMENT SUPERVISOR, CMP, CMADM ####[facility] [address]zqlgstznl[address] [place], [place] [address]Dr. Donna Malone CO2 [Moles/Vol] 27.1 mmol/L Normal 21.0-32.0 [facility] Comment on above: Performed By: #### B PROPERTY MANAGEMENT SUPERVISOR, CMP, CMADM ####[facility] Fzttxaavts[address] [place], [place] [address]Dr. Donna Malone Creatinine [Mass/Vol] 0.99 mg/dL Normal 0.70-1.30 [facility] Comment on above: Performed By: #### B PROPERTY MANAGEMENT SUPERVISOR, CMP, CMADM ####[facility] Wyxzhlqwiy[address] [place], [place] [address]Dr. Donna Malone EGFR-AF SAUDI ARABIAN >60 Normal >=60 [facility] Comment on above: Performed By: #### B PROPERTY MANAGEMENT SUPERVISOR, CMP, CMADM ####[facility] Qiboksvphu[address] [place], [place] [address]Dr. Donna Malone EGFR-NON AF SAUDI ARABIAN >60 Normal >=60 [facility] Comment on above: Performed By: #### B PROPERTY MANAGEMENT SUPERVISOR, CMP, CMADM ####[facility] Lbegdytgpb[address] [place], [place] [address]Dr. Donna Malone Globulin (S) [Mass/Vol] 3.3 g/dL Normal [facility] Comment on above: Performed By: #### B PROPERTY MANAGEMENT SUPERVISOR, CMP, CMADM ####[facility] Pcmwldwqaj[address] [place], [place] [address]Dr. Donna Malone Glucose [Mass/Vol] 101 mg/dL Normal 74-106 [facility] Comment on above: Performed By: #### B PROPERTY MANAGEMENT SUPERVISOR, CMP, CMADM ####[facility] Vwdycfdzal0771 [place] [address]Dr. Donna Malone Potassium [Moles/Vol] 4.1 mmol/L Normal 3.5-5.1 [facility] Comment on above: Performed By: #### B PROPERTY MANAGEMENT SUPERVISOR, CMP, CMADM ####[facility] Prvwmjvllz6226 [place] [address]Dr. Donna Malone Protein [Mass/Vol] 6.2 g/dL Critically low 6.4-8.2 Th [facility] Comment on above: Performed By: #### B PROPERTY MANAGEMENT SUPERVISOR, CMP, CMADM ####[facility] Ohgjjzffdf8686 [place] [address]Dr. Donna Malone Sodium [Moles/Vol] 138 mmol/L Normal 136-145 [facility] Comment on above: Performed By: #### B PROPERTY MANAGEMENT SUPERVISOR, CMP, CMADM ####[facility] Kgasgqphen9481 [place] [address]Dr. Rubyyvan Malone Urea nitrogen [Mass/Vol] 16.0 mg/dL Normal 7.0-18.0 [facility] Comment on above: Performed By: #### B PROPERTY MANAGEMENT SUPERVISOR, CMP, CMADM ####[facility] Bkfpghakoi3353 [place] [address]Dr. Donna Malone Urea nitrogen/Creatinine [Mass ratio] 16.2 mg/mg Normal [facility] Comment on above: Performed By: #### B PROPERTY MANAGEMENT SUPERVISOR, CMP, CMADM ####[facility] Uaofmgtmln1664 [place] [address]Dr. Donna Malone PROTIMEon 07-15-2022 INR Coag (PPP) [Relative time] 1.06 {INR} Normal [facility] Comment on above: Performed By: #### P T, PTT ####[facility] Wqwdlqjuvq5312 [place] [address]Dr. Donna Malone INR GUIDELINES SEE BELOW Normal [facility] Comment on above: Result Comment: FLORESITA RED INR: 2.0 - 3.0 CONDITIONS NOT LISTED BELOW 2.5 - 3.5 FOR PROSTHETIC HEART VALVE REPLACEMENT 2.5 - 3.5 RECURRENT THROMBOSIS Performed By: #### P T, PTT ####[facility] Ufxwzdfgeq9[address] [place], [place] [address]Dr. Donna Malone PT Coag (PPP) [Time] 11.4 s Normal 9.0-11.6 [facility] Comment on above: Performed By: #### P T, PTT ####[facility] Cyskgrrnvp[address] [place], [place] [address]Dr. Donna Malone PTTon 07-15-2022 aPTT Coag (Bld) [Time] 30.8 s Normal 22.3-36.2 Th [facility] Comment on above: Performed By: #### P T, PTT ####[facility] Lkjqhahvbb6[address] [place], [place] [address]Dr. Donna Malone XR CHEST 1 Von 07-15-2022 XR CHEST 1 V Normal [facility] CULTURE URINEon 06-24-2022 CULTURE URINE Normal [facility] Comment on above: Performed By: #### U RCX ####[facility] Ccmkmmyuvm[address] [place], [place] [address]Dr. Donna Malone UA RANDOM W/MICROSCOPICon BACTERIA NONE SEEN Normal NONE SEEN [facility] Comment on above: Performed By: #### U AMIC ####[facility] Lfegnyhsrc8[address] [place], [place] [address]Dr. Donna Malone Bilirubin Ql (U) Negative Normal NEGATIVE [facility] Comment on above: Performed By: #### U AMIC ####[facility] Rfqdgzmfij280[address] [place], [place] [address]Dr. Donna Malone CAST NONE SEEN Normal NONE SEEN [facility] Comment on above: Performed By: #### U AMIC ####[facility] Fafutaszrv5[address] [place], [place] [address]Dr. Donna Malone Clarity (U) CLEAR Normal CLEAR [facility] Comment on above: Performed By: #### U AMIC ####[facility] Swzmhihobj[address] [place], [place] [address]Dr. Donna Malone Color (U) DK. YELLOW Normal YELLOW [facility] Comment on above: Performed By: #### U AMIC ####[facility] Wbaotqqduo5385 [place] [address]Dr. Donna Malone Crystals LM Nom (Urine sed) NONE SEEN Normal NONE SEEN [facility] Comment on above: Performed By: #### U AMIC ####[facility] Gkqofmxjll14[address] [place], [place] [address]Dr. Donna Malone Epithelial cells LM Ql (Urine sed) NONE SEEN Normal NONE SEEN /RARE [facility] Comment on above: Performed By: #### U AMIC ####[facility] Mrphpjitom417[address] [place], [place] [address]Dr. Donna Malone Glucose Ql (U) 100 mg/dl Abnormal NEGATIVE [facility] Comment on above: Performed By: #### U AMIC ####[facility] Ivxgzrdcdh2846[address] [place], [place] [address]Dr. Donna Malone Hemoglobin Ql (U) Negative Normal NEGATIVE [facility] Comment on above: Performed By: #### U AMIC ####[facility] Rcmiilkygt14[address] [place], [place] [address]Dr. Donna Malone Ketones Ql (U) TRACE Abnormal NEGATIVE [facility] Comment on above: Performed By: #### U AMIC ####[facility] Hgzwqtjoah68[address] [place], [place] [address]Dr. Donna Malone LEUKOCYTES Negative Normal NEGATIVE [facility] Comment on above: Performed By: #### U AMIC ####[facility] Deheupeqbc687[address] [place], [place] [address]Dr. Donna Malone MUCOUS SMALL Abnormal NONE SEEN [facility] Comment on above: Performed By: #### U AMIC ####[facility] Xslpsastgc398[address] [place], [place] [address]Dr. Donna Malone Nitrite Ql (U) Negative Normal NEGATIVE [facility] Comment on above: Performed By: #### U AMIC ####[facility] Prbdvuvrkb9801[address] [place], [place] [address]Dr. Donna Malone pH (U) 6.0 [pH] Normal 5-9 [facility] Comment on above: Performed By: #### U AMIC ####[facility] Jdaomeczyr5104 [place] [address]Dr. Donna Malone RBC NONE SEEN Abnormal 0-2 [facility] Comment on above: Performed By: #### U AMIC ####[facility] Wlyvbpjbsd6378 [place] [phone]. Donna Malone SPEC GRAVITY 1.030 Abnormal 1.005-<=1. 025 [facility] Comment on above: Performed By: #### U AMIC ####[facility] Jnolrmvqpf1605 [place] [address]Dr. Donna Malone UA PROTEIN Negative Normal NEGATIVE/ TRACE [facility] Comment on above: Performed By: #### U AMIC ####[facility] Eiqgdxggyh8724 [place] [address]Dr. Donna Malone Urobilinogen Qn (U) 0.2 {Jermain'U}/dL Normal 0.2 - 1. 0 [facility] Comment on above: Performed By: #### U AMIC ####[facility] Wuetjbihuv0678 [place] [address]Dr. Donna Malone WBC 2-5 Abnormal NONE SEEN [facility] Comment on above: Performed By: #### U AMIC ####[facility] Fqealhsmet8413 [place] [address]Dr. Donna Malone COMPLIANCE DRUG SCREENon PDF . Normal [facility] Comment on above: Performed By: #### D SDOALC ####[facility] Zsksnxboek46[address] [place], [place] [address]Dr. Donna Malone Summary FINAL Normal [facility] Comment on above: Result Comment: =====TOXASSURE COMP [...] call . Performed By: #### D SDOALC ####[facility] Czaxqieydl[address] [place], [place] [address]Dr. Donna Malone CBC AUTO DIFFon 05-16-2022 BASO # 0.0 103/ul Normal 0.0-0.1 [facility] Comment on above: Performed By: #### C BC ####[facility] Sfmthzwijd7[address] [place], [place] [address]Dr. Donna Malone Basophils/100 WBC (Bld) 0.4 % Normal 0.2-2.0 [facility] Comment on above: Performed By: #### C BC ####[facility] Kxdyqnjimo12[address] [place], [place] [address]Dr. Dnona Malone EO # 0.1 103/ul Normal 0.0-0.7 [facility] Comment on above: Performed By: #### C BC ####[facility] Rqgdexfpco[address] [place], [place] [address]Dr. Donna Malone Eosinophils/100 WBC (Bld) 0.9 % Normal 0.9-7.0 [facility] Comment on above: Performed By: #### C BC ####[facility] Dubvssglsk[address] [place], [place] [address]Dr. Rubyyvan Malone Erythrocyte distribution width (RBC) [Ratio] 14.9 % Normal 11.0-15.0 [facility] Comment on above: Performed By: #### C BC ####[facility] Wvqluqpppu[address] [place], [place] [address]Dr. Rubyyvan Malone Hematocrit (Bld) [Volume fraction] 41.0 % Critically low 42.0-54.0 [facility] Comment on above: Performed By: #### C BC ####[facility] Owdsjncbqk6[address] [place], [place] [address]Dr. Rubyyvan Malone Hemoglobin (Bld) [Mass/Vol] 13.3 g/dL Critically low 14.0-18.0 [facility] Comment on above: Performed By: #### C BC ####[facility] Fulmwtzmeo7[address] [place], [place] [address]Dr. Donna Malone IG # 0.03 10e3/ul Normal 0.00-0.03 [facility] Comment on above: Performed By: #### C BC ####[facility] Ubgkxgdddv[address] [place], [place] [address]Dr. Donna Malone IG % 0.3 % Normal 0.0-0.5 [facility] Comment on above: Performed By: #### C BC ####[facility] Vyweyernrk7[address] [place], [place] [address]Dr. Donna Malone LYMPH # 1.4 103/ul Normal 1.2-3.8 [facility] Comment on above: Performed By: #### C BC ####[facility] Xohdxtkdwr[address] [place], [place] [address]Dr. Donna Malone Lymphocytes/100 WBC (Bld) 15.3 % Critically low 20.5-60.0 [facility] Comment on above: Performed By: #### C BC ####[facility] Gbngwygtvf[address] [place], [place] [address]Dr. Donna Malone MANUAL DIFF REQ NO Normal [facility] Comment on above: Performed By: #### C BC ####[facility] Sxtrjjcpil[address] [place], [place] [address]Dr. Donna Faisal MCH (RBC) [Entitic mass] 29.4 pg Normal 25.9-34.0 [facility] Comment on above: Performed By: #### C BC ####[facility] Folkyumcdd50[address] [place] [address]Dr. Donna Malone MCHC (RBC) [Mass/Vol] 32.4 g/dL Normal 29.9-35.2 [facility] Comment on above: Performed By: #### C BC ####[facility] Pgvjhilbmk6527 [place] [address]Dr. Donna Faisal MCV (RBC) [Entitic vol] 90.5 fL Normal 80.0-94.0 [facility] Comment on above: Performed By: #### C BC ####[facility] Xvlinakfvm5727 [place] [address]Dr. Rubyyvan Malone MONO # 0.8 103/ul Normal 0.3-0.8 [facility] Comment on above: Performed By: #### C BC ####[facility] Dlivwtjvwe4058 [place] [address]Dr. Rubyyvan Malone Monocytes/100 WBC (Bld) 8.7 % Normal 1.7-12.0 [facility] Comment on above: Performed By: #### C BC ####[facility] Fqrurqukhh2041 [place] [address]Dr. Donna Malone NEUT # 6.9 103/ul Critically high 1.4-6.5 [facility] Comment on above: Performed By: #### C BC ####[facility] Zausvgjcur[address] [place] [address]Dr. Rubyyvan Malone Neutrophils/100 WBC (Bld) 74.4 % Normal 43.0-75.0 [facility] Comment on above: Performed By: #### C BC ####[facility] Fjjhrdoflb8944 [place] [address]Dr. Donna Malone Platelet mean volume (Bld) [Entitic vol] 11.9 fL Normal 9.5-13.5 [facility] Comment on above: Performed By: #### C BC ####[facility] Ubahwgkbrz32[address] [place] [phone]. Rubyyvan Faisal PLT 174 103/ul Normal 150-450 [facility] Comment on above: Performed By: #### C BC ####[facility] Myzkljdwhl7916 [place] [address]Dr. Donna Malone RBC 4.53 106/ul Critically low 4.70-6.10 [facility] Comment on above: Performed By: #### C BC ####[facility] Iignufjzsw3039 [place] [address]Dr. Donna Faisal WBC 9.2 103/ul Normal 4.0-11.0 [facility] Comment on above: Performed By: #### C BC ####[facility] Scrtayrabl[address] [place] [address]Dr. Donna Malone PROF 14(COMP METB)on 022 Albumin [Mass/Vol] 3.0 g/dL Critically low 3.4-5.0 [facility] Comment on above: Performed By: #### C MP ####[facility] Yqsxblfvbb[address] [place], [place] [address]Dr. Donna Malone Albumin/Globulin [Mass ratio] 0.8 {ratio} Normal [facility] Comment on above: Performed By: #### C MP ####[facility] Brimtpnlvw[address] [place], [place] [address]Dr. Donna Malone ALP [Catalytic activity/Vol] 39 U/L Critically low 46-116 [facility] Comment on above: Performed By: #### C MP ####[facility] [address]dscqszwds[address] [place], [place] [address]Dr. Donna Malone ALT [Catalytic activity/Vol] 16 U/L Normal 16-63 [facility] Comment on above: Performed By: #### C MP ####[facility] [address]zkfnmybnm[address] [place], [place] [address]Dr. Donna Malone Anion gap [Moles/Vol] 10.8 mmol/L Normal [facility] Comment on above: Performed By: #### C MP ####[facility] Orofztzskr[address] [place] [address]Dr. Donna Malone AST [Catalytic activity/Vol] 9 U/L Critically low 15-37 [facility] Comment on above: Performed By: #### C MP ####[facility] Cqmvifhzjc[address] [place], [place] [address]Dr. Donna Malone Bilirubin [Mass/Vol] 0.3 mg/dL Normal 0.2-1.0 [facility] Comment on above: Performed By: #### C MP ####[facility] Mcdoacnder[address] [place], [place] [address]Dr. Donna Malone Calcium [Mass/Vol] 8.8 mg/dL Normal 8.5-10.1 [facility] Comment on above: Performed By: #### C MP ####[facility] Idmadltmub8356[address] [place], [place] [address]Dr. Donna Malone Chloride [Moles/Vol] 105 mmol/L Normal 98-107 [facility] Comment on above: Performed By: #### C MP ####[facility] Ejzojegzik[address] [place], [place] [address]Dr. Donna Malone CO2 [Moles/Vol] 26.7 mmol/L Normal 21.0-32.0 [facility] Comment on above: Performed By: #### C MP ####[facility] Mhccmurvro28[address] [place], [place] [address]Dr. Donna Malone Creatinine [Mass/Vol] 0.97 mg/dL Normal 0.70-1.30 [facility] Comment on above: Performed By: #### C MP ####[facility] Fmaimcdutn169[address] [place], [place] [address]Dr. Donna Faisal EGFR-AF SAUDI ARABIAN >60 Normal >=60 [facility] Comment on above: Performed By: #### C MP ####[facility] Qauwmqvbjh0790[address] [place], [place] [address]Dr. Rubyyvan Faisal EGFR-NON AF SAUDI ARABIAN >60 Normal >=60 [facility] Comment on above: Performed By: #### C MP ####[facility] Qwierxhepd313227 [address] [place], [place] [address]Dr. Yiyvan Malone Globulin (S) [Mass/Vol] 3.7 g/dL Normal [facility] Comment on above: Performed By: #### C MP ####[facility] [address]cmluelk[address] [place] [address]Dr. Donna Malone Glucose [Mass/Vol] 98 mg/dL Normal 74-106 [facility] Comment on above: Performed By: #### C MP ####[facility] Aqfbedwyrv[address] [place] [address]Dr. Donna Malone Potassium [Moles/Vol] 3.5 mmol/L Normal 3.5-5.1 [facility] Comment on above: Performed By: #### C MP ####[facility] Mjaueokcni33[address] [place] [address]Dr. Donna Malone Protein [Mass/Vol] 6.7 g/dL Normal 6.4-8.2 [facility] Comment on above: Performed By: #### C MP ####[facility] Fjmdlthiwp7140[address] [place], [place] [address]Dr. Donna Malone Sodium [Moles/Vol] 139 mmol/L Normal 136-145 [facility] Comment on above: Performed By: #### C MP ####[facility] Ioghsazkqn5890[address] [place], [place] [address]Dr. Donna Malone Urea nitrogen [Mass/Vol] 11.0 mg/dL Normal 7.0-18.0 [facility] Comment on above: Performed By: #### C MP ####[facility] Fqnownhnln4456[address] [place], [place] [address]Dr. Donna Malone Urea nitrogen/Creatinine [Mass ratio] 11.3 mg/mg Normal [facility] Comment on above: Performed By: #### C MP ####[facility] Cffpzhdiop30[address] [place] [address]Dr. Donna Malone T3, TOTAL (TRIIODOTHYRONINE) on 05-16-2022 T3, TOTAL 86 ng/dL Normal 71-180 [facility] Comment on above: Performed By: #### T 3TOTAL ####[facility] Ekcwlwpmyj769[address] [place], [place] [address]Dr. Donna Malone T4 LABCORPon 05-16-2022 T4 [Mass/Vol] 6.4 ug/dL Normal 4.5-12.0 [facility] Comment on above: Performed By: #### T 4LC ####[facility] Mqqokudjbt4[address] [place] [address]Dr. Donna Malone CBC AUTO DIFFon 05-15-2022 BASO # 0.0 103/ul Normal 0.0-0.1 [facility] Comment on above: Performed By: #### C BC ####[facility] Bswqsvvunt9[address] [place], [place] [address]Dr. Donna Faisal Basophils/100 WBC (Bld) 0.3 % Normal 0.2-2.0 [facility] Comment on above: Performed By: #### C BC ####[facility] Fcthbwpjqi665[address] [place], [place] [address]Dr. Rubyyvan Malone EO # 0.2 103/ul Normal 0.0-0.7 [facility] Comment on above: Performed By: #### C BC ####[facility] Aosahmlvii7809[address] [place], [place] [address]Dr. Donna Malone Eosinophils/100 WBC (Bld) 2.0 % Normal 0.9-7.0 [facility] Comment on above: Performed By: #### C BC ####[facility] Rzzjqmbqkw1698[address] [place], [place] [address]Dr. Donna Malone Erythrocyte distribution width (RBC) [Ratio] 14.6 % Normal 11.0-15.0 [facility] Comment on above: Performed By: #### C BC ####[facility] Diedwoocdi1969[address] [place], [place] [address]Dr. Donna Malone Hematocrit (Bld) [Volume fraction] 38.2 % Critically low 42.0-54.0 [facility] Comment on above: Performed By: #### C BC ####[facility] Pkzlgfucmt9[address] [place], [place] [address]Dr. Donna Malone Hemoglobin (Bld) [Mass/Vol] 12.7 g/dL Critically low 14.0-18.0 [facility] Comment on above: Performed By: #### C BC ####[facility] Lfisyibjbl[address] [place] [id number]. Donna Malone IG # 0.04 10e3/ul Critically high 0.00-0.03 [facility] Comment on above: Performed By: #### C BC ####[facility] Dkmwnsqmba5601 [place] [id number]. Donna Malone IG % 0.4 % Normal 0.0-0.5 [facility] Comment on above: Performed By: #### C BC ####[facility] Klcklikanb4045 [place] [address]Dr. Donna Malone LYMPH # 1.4 103/ul Normal 1.2-3.8 [facility] Comment on above: Performed By: #### C BC ####[facility] Bboxgahzhv0454 [place] [address]Dr. Rubyyvan Malone Lymphocytes/100 WBC (Bld) 14.9 % Critically low 20.5-60.0 [facility] Comment on above: Performed By: #### C BC ####[facility] Pobcwvzkvn13[address] [place] [address]Dr. Donna Malone MANUAL DIFF REQ NO Normal [facility] Comment on above: Performed By: #### C BC ####[facility] Czgwtjyset0117[address] [place], [place] [address]Dr. Donna Malone MCH (RBC) [Entitic mass] 30.0 pg Normal 25.9-34.0 [facility] Comment on above: Performed By: #### C BC ####[facility] Qekcbfwfwr0138[address] [place], [place] [address]Dr. Donna Malone MCHC (RBC) [Mass/Vol] 33.2 g/dL Normal 29.9-35.2 [facility] Comment on above: Performed By: #### C BC ####[facility] Ngasvegwgi9846[address] [place], [place] [address]Dr. Donna Malone MCV (RBC) [Entitic vol] 90.3 fL Normal 80.0-94.0 [facility] Comment on above: Performed By: #### C BC ####[facility] Stgfoposfj1085 [place] [id number]. Donna Malone MONO # 0.8 103/ul Normal 0.3-0.8 [facility] Comment on above: Performed By: #### C BC ####[facility] Nljalvmnnu1972 [place] [id number]. Donna Malone Monocytes/100 WBC (Bld) 8.5 % Normal 1.7-12.0 [facility] Comment on above: Performed By: #### C BC ####[facility] Svdyoozxgf7803 [place] [id number]. Donna Malone NEUT # 6.8 103/ul Critically high 1.4-6.5 [facility] Comment on above: Performed By: #### C BC ####[facility] Bryhfunspl9688[address] [place], [place] [address]Dr. Donna Malone Neutrophils/100 WBC (Bld) 73.9 % Normal 43.0-75.0 [facility] Comment on above: Performed By: #### C BC ####[facility] Frbgdsziro7690 [place] [address]Dr. Donna Malone Platelet mean volume (Bld) [Entitic vol] 12.0 fL Normal 9.5-13.5 [facility] Comment on above: Performed By: #### C BC ####[facility] Tgdrpawsnt2150 [place] [phone]. Donna Malone PLT 154 103/ul Normal 150-450 [facility] Comment on above: Performed By: #### C BC ####[facility] Hqhlokatld[address] [place], [place] [id number]. Donna Malone RBC 4.23 106/ul Critically low 4.70-6.10 [facility] Comment on above: Performed By: #### C BC ####[facility] Zzhkuxhtym7753 [place] [phone]. Donna Malone WBC 9.2 103/ul Normal 4.0-11.0 [facility] Comment on above: Performed By: #### C BC ####[facility] Qffxdmgqei8547[address] [place], [place] [address]Dr. Donna Malone PROF 14(COMP METB)on 022 Albumin [Mass/Vol] 2.9 g/dL Critically low 3.4-5.0 [facility] Comment on above: Performed By: #### C MP ####[facility] Fsrryqykdx0764[address] [place], [place] [address]Dr. Donna Malone Albumin/Globulin [Mass ratio] 0.9 {ratio} Normal [facility] Comment on above: Performed By: #### C MP ####[facility] Visatxjrde118227 [address] [place], [place] [address]Dr. Donna Malone ALP [Catalytic activity/Vol] 41 U/L Critically low 46-116 [facility] Comment on above: Performed By: #### C MP ####[facility] Iiyofwzyxe4432[address] [place], [place] [address]Dr. Donna Malone ALT [Catalytic activity/Vol] 12 U/L Critically low 16-63 [facility] Comment on above: Performed By: #### C MP ####[facility] Pqxxeglzbo7032[address] [place], [place] [address]Dr. Donna Malone Anion gap [Moles/Vol] 5.6 mmol/L Normal [facility] Comment on above: Performed By: #### C MP ####[facility] Lsbhqquymq4136[address] [place], [place] [address]Dr. Donna Malone AST [Catalytic activity/Vol] 8 U/L Critically low 15-37 [facility] Comment on above: Performed By: #### C MP ####[facility] Phjstiaspa3944[address] [place], [place] [address]Dr. Donna Malone Bilirubin [Mass/Vol] 0.5 mg/dL Normal 0.2-1.0 [facility] Comment on above: Performed By: #### C MP ####[facility] Frmigaaxlg4226[address] [place], [place] [address]Dr. Donna Malone Calcium [Mass/Vol] 8.3 mg/dL Critically low 8.5-10.1 [facility] Comment on above: Performed By: #### C MP ####[facility] Vywrxcxwvr2215 [place] [phone]. Donna Malone Chloride [Moles/Vol] 106 mmol/L Normal 98-107 [facility] Comment on above: Performed By: #### C MP ####[facility] Cdepxpfjjk4068 [place] [phone]. Donna Malone CO2 [Moles/Vol] 23.1 mmol/L Normal 21.0-32.0 [facility] Comment on above: Performed By: #### C MP ####[facility] Hsoczpnvsi4806 [place] [address]Dr. Donna Malone Creatinine [Mass/Vol] 0.82 mg/dL Normal 0.70-1.30 [facility] Comment on above: Performed By: #### C MP ####[facility] Xobybcgble1640 [place] [address]Dr. Donna Faisal EGFR-AF SAUDI ARABIAN >60 Normal >=60 [facility] Comment on above: Performed By: #### C MP ####[facility] Kuvmyrzdyq48[address] [place] [address]Dr. Donna Malone EGFR-NON AF SAUDI ARABIAN >60 Normal >=60 [facility] Comment on above: Performed By: #### C MP ####[facility] Riuhvklkyh2294 [place] [address]Dr. Donna Faisal Globulin (S) [Mass/Vol] 3.2 g/dL Normal [facility] Comment on above: Performed By: #### C MP ####[facility] Gkbjuqocub5315 [place] [address]Dr. Donna Faisal Glucose [Mass/Vol] 81 mg/dL Normal 74-106 [facility] Comment on above: Performed By: #### C MP ####[facility] Pcofmijqgr425[address] [place], [place] [address]Dr. Donna Malone Potassium [Moles/Vol] 3.7 mmol/L Normal 3.5-5.1 [facility] Comment on above: Performed By: #### C MP ####[facility] Rzlknsrmgs8207[address] [place], [place] [address]Dr. Donna Malone Protein [Mass/Vol] 6.1 g/dL Critically low 6.4-8.2 [facility] Comment on above: Performed By: #### C MP ####[facility] Qucwcmknxj706027 [address] [place], [place] [address]Dr. Donna Malone Sodium [Moles/Vol] 131 mmol/L Critically low 136-145 Th [facility] Comment on above: Performed By: #### C MP ####[facility] Iheojhwkve5285[address] [place], [place] [address]Dr. Donna Malone Urea nitrogen [Mass/Vol] 17.0 mg/dL Normal 7.0-18.0 [facility] Comment on above: Performed By: #### C MP ####[facility] Mdkdxculub220927 [address] [place], [place] [address]Dr. Donna Malone Urea nitrogen/Creatinine [Mass ratio] 20.7 mg/mg Normal [facility] Comment on above: Performed By: #### C MP ####[facility] Ssdaoadgrv29[address] [place], [place] [address]Dr. Donna Malone CBC AUTO DIFFon 05-14-2022 BASO # 0.1 103/ul Normal 0.0-0.1 [facility] Comment on above: Performed By: #### C BC ####[facility] Zgtyhknhaz307[address] [place], [place] [address]Dr. Donna Malone Basophils/100 WBC (Bld) 0.8 % Normal 0.2-2.0 [facility] Comment on above: Performed By: #### C BC ####[facility] Dltetvmesd119027 [address] [place], [place] [address]Dr. Donna Malone EO # 0.3 103/ul Normal 0.0-0.7 [facility] Comment on above: Performed By: #### C BC ####[facility] Douzihmtmg1278[address] [place], [place] [address]Dr. Donna Malone Eosinophils/100 WBC (Bld) 4.2 % Normal 0.9-7.0 [facility] Comment on above: Performed By: #### C BC ####[facility] Uzbrfboupz6367[address] [place], [place] [address]Dr. Rubyyvan Malone Erythrocyte distribution width (RBC) [Ratio] 14.7 % Normal 11.0-15.0 [facility] Comment on above: Performed By: #### C BC ####[facility] Kfwxoqmwdh909[address] [place], [place] [address]Dr. Donna Malone Hematocrit (Bld) [Volume fraction] 36.5 % Critically low 42.0-54.0 [facility] Comment on above: Performed By: #### C BC ####[facility] Numrhfqqyc179[address] [place], [place] [address]Dr. Donna Malone Hemoglobin (Bld) [Mass/Vol] 11.9 g/dL Critically low 14.0-18.0 [facility] Comment on above: Performed By: #### C BC ####[facility] Odziuuaeui1259[address] [place], [place] [address]Dr. Donna Malone IG # 0.01 10e3/ul Normal 0.00-0.03 [facility] Comment on above: Performed By: #### C BC ####[facility] Kbiqgdmuxq844[address] [place], [place] [address]Dr. Donna Malone IG % 0.2 % Normal 0.0-0.5 [facility] Comment on above: Performed By: #### C BC ####[facility] Ueusijnmej8758[address] [place], [place] [address]Dr. Donna Malone LYMPH # 2.1 103/ul Normal 1.2-3.8 [facility] Comment on above: Performed By: #### C BC ####[facility] Dnkuhpcips56112[address] [place], [place] [address]Dr. Donna Malone Lymphocytes/100 WBC (Bld) 32.1 % Normal 20.5-60.0 [facility] Comment on above: Performed By: #### C BC ####[facility] Ahvfqjlqfw8758[address] [place], [place] [address]Dr. Donna Malone MANUAL DIFF REQ NO Normal [facility] Comment on above: Performed By: #### C BC ####[facility] Lacvfevbje393[address] [place], [place] [address]Dr. Donna Faisal MCH (RBC) [Entitic mass] 29.7 pg Normal 25.9-34.0 [facility] Comment on above: Performed By: #### C BC ####[facility] Watckjhxls7407 [place] [address]Dr. Donna Malone MCHC (RBC) [Mass/Vol] 32.6 g/dL Normal 29.9-35.2 [facility] Comment on above: Performed By: #### C BC ####[facility] Rmortbtpuc0549 [place] [address]Dr. Donna Faisal MCV (RBC) [Entitic vol] 91.0 fL Normal 80.0-94.0 [facility] Comment on above: Performed By: #### C BC ####[facility] Qyrdesykle7001 [place] [address]Dr. Donna Malone MONO # 0.5 103/ul Normal 0.3-0.8 [facility] Comment on above: Performed By: #### C BC ####[facility] Ttcjnzsjwf0992 [place] [address]Dr. Rubyyvan Malone Monocytes/100 WBC (Bld) 8.1 % Normal 1.7-12.0 [facility] Comment on above: Performed By: #### C BC ####[facility] Qztohoztjt4392 [place] [address]Dr. Donna Faisal NEUT # 3.5 103/ul Normal 1.4-6.5 [facility] Comment on above: Performed By: #### C BC ####[facility] Balsztlpmt7323 [place] [address]Dr. Donna Malone Neutrophils/100 WBC (Bld) 54.6 % Normal 43.0-75.0 [facility] Comment on above: Performed By: #### C BC ####[facility] Wtqqadbdcs1769 [place] [address]Dr. Donna Malone Platelet mean volume (Bld) [Entitic vol] 12.0 fL Normal 9.5-13.5 [facility] Comment on above: Performed By: #### C BC ####[facility] Jzlnxndnvk8770 [place] [id number]. Donna Malone PLT 152 103/ul Normal 150-450 [facility] Comment on above: Performed By: #### C BC ####[facility] Xuzrhkblud7673 [place] [address]Dr. Donna Malone RBC 4.01 106/ul Critically low 4.70-6.10 [facility] Comment on above: Performed By: #### C BC ####[facility] Lalwyaexnu5556 [place] [address]Dr. Rubyyvan Malone WBC 6.4 103/ul Normal 4.0-11.0 [facility] Comment on above: Performed By: #### C BC ####[facility] Ystefipggt7475[address] [place], [place] [address]Dr. Donna Malone DEPAKENE/VALPROICon 05-14-20 22 DEPAKENE 17.3 ug/ml Critically low 50.0-100.0 [facility] Comment on above: Performed By: #### V ALP ####[facility] Vwthfajbzb5259[address] [place], [place] [address]Dr. Donna Malone POINT OF CARE GLUCOSEon Glucose [Mass/Vol] 89 mg/dL Normal 74-106 [facility] Comment on above: Performed By: #### P OCGLUC ####[facility] Jckegqvvev2994 [place] [address]Dr. Donna Malone PROF CHEM 8 (BAS METB)on Anion gap [Moles/Vol] 13.6 mmol/L Normal [facility] Comment on above: Performed By: #### B MP ####[facility] Vzqkmfferz1467[address] [place], [place] [address]Dr. Donna Malone Calcium [Mass/Vol] 7.8 mg/dL Critically low 8.5-10.1 [facility] Comment on above: Performed By: #### B MP ####[facility] Yxyfnshfco7640[address] [place], [place] [address]Dr. Donna Malone Chloride [Moles/Vol] 112 mmol/L Critically high 98-107 [facility] Comment on above: Performed By: #### B MP ####[facility] Rwpvknqzhu7911 [place] [address]Dr. Donna Malone CO2 [Moles/Vol] 22.5 mmol/L Normal 21.0-32.0 [facility] Comment on above: Performed By: #### B MP ####[facility] Gvfwzzynme7779 [place] [address]Dr. Dnona Malone Creatinine [Mass/Vol] 1.01 mg/dL Normal 0.70-1.30 [facility] Comment on above: Performed By: #### B MP ####[facility] Ysluzjoubw0320[address] [place], [place] [address]Dr. Rubyyvan Faisal EGFR-AF SAUDI ARABIAN >60 Normal >=60 [facility] Comment on above: Performed By: #### B MP ####[facility] Reowiekjkm8344[address] [place], [place] [address]Dr. Rubyyvan Faisal EGFR-NON AF SAUDI ARABIAN >60 Normal >=60 [facility] Comment on above: Performed By: #### B MP ####[facility] Dnqcvlbnae8380[address] [place], [place] [address]Dr. Donna Faisal Glucose [Mass/Vol] 84 mg/dL Normal 74-106 [facility] Comment on above: Performed By: #### B MP ####[facility] Zuyzijjoba6005[address] [place], [place] [address]Dr. Rubyyvan Faisal Potassium [Moles/Vol] 4.1 mmol/L Normal 3.5-5.1 [facility] Comment on above: Performed By: #### B MP ####[facility] Sfehwdvhfp6330[address] [place], [place] [address]Dr. Rubyyvan Malone Sodium [Moles/Vol] 144 mmol/L Normal 136-145 [facility] Comment on above: Performed By: #### B MP ####[facility] Gypjvhcygm3715[address] [place], [place] [address]Dr. Rubyyvan Faisal Urea nitrogen [Mass/Vol] 21.0 mg/dL Critically high 7.0-18.0 [facility] Comment on above: Performed By: #### B MP ####[facility] Zyhisogori0648 [place] [address]Dr. Donna Malone Urea nitrogen/Creatinine [Mass ratio] 20.8 mg/mg Normal [facility] Comment on above: Performed By: #### B MP ####[facility] Pcdlzvpsxf2504[address] [place], [place] [address]Dr. Donna Malone TSHon 05-14-2022 TSH 1.086 uIU/mL Normal 0.358-3.74 0 [facility] Comment on above: Performed By: #### T SH ####[facility] Pfcoecxuoh7514[address] [place], [place] [address]Dr. Donna Malone BLOOD GASES BTYon 05-13-2022 02 MODE ROOM AIR [facility] Comment on above: Performed By: #### A BG ####[facility] Pmokrvalvh7966[address] [place], [place] [address]Dr. Donna Malone ALLENS TEST Positive [facility] Comment on above: Performed By: #### A BG ####[facility] Njgtrlfpkb7413[address] [place], [place] [address]Dr. Donna Malone Base excess Calc (Bld) [Moles/Vol] -2.5000 mmol/L Critically low -2.0-2.0 [facility] Comment on above: Performed By: #### A BG ####[facility] Tndfclqjbg0490[address] [place], [place] [address]Dr. Donna Malone BIPAP PRESSURE Normal [facility] Comment on above: Performed By: #### A BG ####[facility] Koierwhddp729[address] [place], [place] [address]Dr. Donna Malone CPAP Normal [facility] Comment on above: Performed By: #### A BG ####[facility] Amqwtdgpbj3388[address] [place], [place] [address]Dr. Donna Malone FIO2 Normal [facility] Comment on above: Performed By: #### A BG ####[facility] Xccwxvdnmd6457[address] [place], [place] [address]Dr. Donna Malone HCO3 (Bld) [Moles/Vol] 22.4 mmol/L Normal 22.0-26.0 T [facility] Comment on above: Performed By: #### A BG ####[facility] Ajovywmrbg1516 [place] [address]Dr. Donna Malone LPM [facility] Comment on above: Performed By: #### A BG ####[facility] Rrizqktywv014[address] [place], [place] [address]Dr. Donna Malone MINUTE VOLUME Normal [facility] Comment on above: Performed By: #### A BG ####[facility] Wwljrzbrpt8088[address] [place], [place] [address]Dr. Donna Malone Oxygen (Bld) [Partial pressure] 77.6 mm[Hg] Critically low 80.0-100.0 [facility] Comment on above: Performed By: #### A BG ####[facility] Qexeehzjig6295[address] [place], [place] [address]Dr. Donna Malone Oxygen saturation in Blood 95.5 % Normal 95.0-100.0 [facility] Comment on above: Performed By: #### A BG ####[facility] Xvjotfrzun[address] [place], [place] [address]Dr. Donna Malone PCO2 40.8 mmHg Normal 35.0-45.0 [facility] Comment on above: Performed By: #### A BG ####[facility] Qcqxyjifji13[address] [place], [place] [address]Dr. Donna Malone PEEP [facility] Comment on above: Performed By: #### A BG ####[facility] Bdisunmdsn426[address] [place], [place] [address]Dr. Donna Malone pH (Bld) 7.359 [pH] Normal 7.350-7.45 0 [facility] Comment on above: Performed By: #### A BG ####[facility] Gsbbknooyk67[address] [place], [place] [address]Dr. Donna Malone PIP [facility] Comment on above: Performed By: #### A BG ####[facility] Dhmeoqwgfo32[address] [place], [place] [address]Dr. Donna Malone PS [facility] Comment on above: Performed By: #### A BG ####[facility] Lotwsqmpmj[address] [place] [address]Dr. Donna Malone PUNCTURE SITE RR Normal [facility] Comment on above: Performed By: #### A BG ####[facility] Jmtqlpsupk[address] [place] [address]Dr. Donna Malone RATE Normal [facility] Comment on above: Performed By: #### A BG ####[facility] Olqnwwrzfg24[address] [place] [address]Dr. Donna Malone VENT MODE [facility] Comment on above: Performed By: #### A BG ####[facility] Gognviiyao53[address] [place] [address]Dr. Donna Malone [place] [facility] Comment on above: Performed By: #### A BG ####[facility] Yhotppafaf53[address] [place] [address]Dr. Donna Malone BNPon 05-13-2022 Natriuretic peptide B (Bld) [Mass/Vol] 156.0 pg/mL Normal <=900.0 [facility] Comment on above: Performed By: #### C MP, CMADM, BNP ####[facility] Yigtvyzdrj04[address] [place] [address]Dr. Donna Malone CARDIAC MJ ADMITon 022 CK [Catalytic activity/Vol] 119 U/L Normal 39-308 [facility] Comment on above: Performed By: #### C MP, CMADM, BNP ####[facility] Puvmrdakpd[address] [place] [address]Dr. Donna Malone CK.MB [Mass/Vol] 1.27 ng/mL Normal <=3.60 [facility] Comment on above: Performed By: #### C MP, CMADM, BNP ####[facility] Omzftvysfw[address] [place], [place] [address]Dr. Rubyyvan Malone HSTROP 7.9 pg/mL Normal 4.0-76.1 [facility] Comment on above: Result Comment: CUT- OFF POINTS HAVE BEEN ESTABLISHED BASED ON THE FOURTH UNIVERSAL DEFINITIONS OF MYOCARDIALINFARCTION. THE UPPER REFERENCE LIMIT (URL) OF TROPONIN, DEFINED THE 99TH PERCENTILE OFcTnI DISTRIBUTION IN A REFERENCE POPULATION, HAS BEEN CONFIRMED THE DECISION THRESHOLDFOR [place] DIAGNOSIS. Performed By: #### C MP, CMADM, BNP ####[facility] Rhfsobxamp36[address] [place] [address]Dr. Donna Malone BINDU 111 ng/mL Critically high 16-96 [facility] Comment on above: Performed By: #### C MP, CMADM, BNP ####[facility] Ysjamroqsj18[address] [place] [address]Dr. Rubyyvan Malone CBC AUTO DIFFon 05-13-2022 BASO # 0.1 103/ul Normal 0.0-0.1 [facility] Comment on above: Performed By: #### C BC ####[facility] Ctozfrbiho6[address] [place], [place] [address]Dr. Dnona Malone Basophils/100 WBC (Bld) 0.8 % Normal 0.2-2.0 [facility] Comment on above: Performed By: #### C BC ####[facility] Xcpjtfeyhd9[address] [place], [place] [address]Dr. Donna Malone EO # 0.1 103/ul Normal 0.0-0.7 [facility] Comment on above: Performed By: #### C BC ####[facility] Dhgynjeaog7[address] [place], [place] [address]Dr. Donna Malone Eosinophils/100 WBC (Bld) 1.8 % Normal 0.9-7.0 [facility] Comment on above: Performed By: #### C BC ####[facility] Lyzchusqfh5129[address] [place], [place] [address]Dr. Donna Malone Erythrocyte distribution width (RBC) [Ratio] 14.7 % Normal 11.0-15.0 [facility] Comment on above: Performed By: #### C BC ####[facility] Ihncylnrhk2425[address] [place], [place] [address]Dr. Donna Malone Hematocrit (Bld) [Volume fraction] 38.2 % Critically low 42.0-54.0 [facility] Comment on above: Performed By: #### C BC ####[facility] Sithkllovu[address] [place] [address]Dr. Donna Malone Hemoglobin (Bld) [Mass/Vol] 12.7 g/dL Critically low 14.0-18.0 [facility] Comment on above: Performed By: #### C BC ####[facility] Ayphhgjige[address] [place] [address]Dr. Donna Malone IG # 0.03 10e3/ul Normal 0.00-0.03 [facility] Comment on above: Performed By: #### C BC ####[facility] Dnjqdrswoi668[address] [place] [address]Dr. Donna Malone IG % 0.4 % Normal 0.0-0.5 [facility] Comment on above: Performed By: #### C BC ####[facility] Dihgoaoucg0[address] [place], [place] [address]Dr. Donna Malone LYMPH # 1.6 103/ul Normal 1.2-3.8 [facility] Comment on above: Performed By: #### C BC ####[facility] Ckmdtudrwg74[address] [place], [place] [address]Dr. Donna Malone Lymphocytes/100 WBC (Bld) 22.8 % Normal 20.5-60.0 [facility] Comment on above: Performed By: #### C BC ####[facility] Ysqcbdufje24[address] [place], [place] [address]Dr. Donna Malone MANUAL DIFF REQ NO Normal [facility] Comment on above: Performed By: #### C BC ####[facility] Pqgicflefe22[address] [place], [place] [address]Dr. Donna Malone MCH (RBC) [Entitic mass] 30.2 pg Normal 25.9-34.0 [facility] Comment on above: Performed By: #### C BC ####[facility] Sobqghxvtv7627[address] [place], [place] [address]Dr. Donna Faisal MCHC (RBC) [Mass/Vol] 33.2 g/dL Normal 29.9-35.2 [facility] Comment on above: Performed By: #### C BC ####[facility] Qsnqprnfkd0101[address] [place], [place] [address]Dr. Donna Faisal MCV (RBC) [Entitic vol] 91.0 fL Normal 80.0-94.0 [facility] Comment on above: Performed By: #### C BC ####[facility] Cptnactudz6[address] [place] [address]Dr. Donna Malone MONO # 0.7 103/ul Normal 0.3-0.8 [facility] Comment on above: Performed By: #### C BC ####[facility] Xfkvsqgkrc464[address] [place], [place] [address]Dr. Rubyyvan Malone Monocytes/100 WBC (Bld) 9.1 % Normal 1.7-12.0 [facility] Comment on above: Performed By: #### C BC ####[facility] Ixrwqmqgiu5[address] [place], [place] [address]Dr. Donna Malone NEUT # 4.7 103/ul Normal 1.4-6.5 [facility] Comment on above: Performed By: #### C BC ####[facility] Ykrgwumxpu2860[address] [place], [place] [address]Dr. Rubyyvan Malone Neutrophils/100 WBC (Bld) 65.1 % Normal 43.0-75.0 [facility] Comment on above: Performed By: #### C BC ####[facility] Eyaanumupl7677[address] [place], [place] [address]Dr. Donna Malone Platelet mean volume (Bld) [Entitic vol] 11.8 fL Normal 9.5-13.5 [facility] Comment on above: Performed By: #### C BC ####[facility] Nktrfqpkpz8[address] [place], [place] [address]Dr. Donna Malone PLT 179 103/ul Normal 150-450 [facility] Comment on above: Performed By: #### C BC ####[facility] Xgsrynvnds[address] [place], [place] [address]DrElizabeth Malone RBC 4.20 106/ul Critically low 4.70-6.10 [facility] Comment on above: Performed By: #### C BC ####[facility] Gsgvrtrxph3[address] [place], [place] [address]DrElizabeth Malone WBC 7.2 103/ul Normal 4.0-11.0 [facility] Comment on above: Performed By: #### C BC ####[facility] Tdskxabegf24[address] [place], [place] [address] STROKE HEAD WOon 05-13-[address] STROKE HEAD WO Normal [facility] Covid-19 PCR (CVDTB)on SARS-CoV-2 (COVID-19) RNA JOSÉ MIGUEL+probe Ql (Unsp spec) Not detected Normal NOT DETECTED [facility] Comment on above: Result [...] for this test is supported by the [place] of Health and Human Service's declaration that [...] be used). Performed By: #### C VDTBH ####[facility] Vebxeyevxg1784 [place], [place] [address]MzElizabeth Malone DEPAKENE/VALPROICon 05-13-20 22 DEPAKENE 16.9 ug/ml Critically low 50.0-100.0 [facility] Comment on above: Performed By: #### V ALP ####[facility] Zopndfkbkw1755 [place], [place] [address]IyElizabeth Malone DRUG SCREEN RAPID (URINE)on 05-13-2022 AMP Negative Normal NEGATIVE [facility] Comment on above: Performed By: #### D RUGRPD ####[facility] Sjvowfhatu7[address] [place], [place] [address]IrElizabeth Malone BAR Negative Normal NEGATIVE [facility] Comment on above: Performed By: #### D RUGRPD ####[facility] Oyyduvgpsf39[address] [place] [phone]. Donna Malone BUP Negative Normal NEGATIVE [facility] Comment on above: Performed By: #### D RUGRPD ####[facility] Mesoclfsxy7[address] [place] [id number]. Donna Malone BZO Positive Abnormal NEGATIVE [facility] Comment on above: Performed By: #### D RUGRPD ####[facility] Svrqaecjgs5[address] [place] [address]Dr. Donna Malone EVONNE Positive Abnormal NEGATIVE [facility] Comment on above: Performed By: #### D RUGRPD ####[facility] Vvmcakuevb5[address] [place], [place] [address]Dr. Donna Malone CUT-OFFS SEE BELOW Normal [facility] Comment on above: Result [...] 300 ng/mL Performed By: #### D RUGRPD ####[facility] Ucyauyupcm65[address] [place] [id number]. Donna Malone DRUG CUT HEADER DRUG CLASS TEST SYST EM CUT-OFF CONCENTRATIONS ARE FOLLOWS: Normal [facility] Comment on above: Performed By: #### D RUGRPD ####[facility] Czaootstvr40[address] [place] [phone]. Donna Malone mAMP Negative Normal NEGATIVE [facility] Comment on above: Performed By: #### D RUGRPD ####[facility] Lvjvolssgn5884 [place] [address]Dr. Donna Malone MTD Negative Normal NEGATIVE [facility] Comment on above: Performed By: #### D RUGRPD ####[facility] Yomcnofvvy94[address] [place] [address]Dr. Donna Faisal OPI Positive Abnormal NEGATIVE [facility] Comment on above: Performed By: #### D RUGRPD ####[facility] Omlldifbgm7[address] [place] [address]Dr. Yiyvan Malone OXY Negative Normal NEGATIVE [facility] Comment on above: Performed By: #### D RUGRPD ####[facility] [address]zlroxyrdl[address] [place], [place] [address]Dr. Rubyyvan Malone PCP Negative Normal NEGATIVE [facility] Comment on above: Performed By: #### D RUGRPD ####[facility] Qrcmsjvogd23[address] [place], [place] [address]Dr. Rubyyvan Malone PPX Negative Normal NEGATIVE [facility] Comment on above: Performed By: #### D RUGRPD ####[facility] Kxmqyhjebi[address] [place], [place] [address]Dr. Donna Malone TCA Positive Abnormal NEGATIVE [facility] Comment on above: Performed By: #### D RUGRPD ####[facility] Ngioimyaye44[address] [place] [address]Dr. Donna Faisal THC Negative Normal NEGATIVE [facility] Comment on above: Performed By: #### D RUGRPD ####[facility] Kywofcicfe66[address] [place], [place] [address]Dr. Donna Faisal ER URINE PROFILEon 2 Bilirubin Ql (U) MODERATE Abnormal NEGATIVE [facility] Comment on above: Performed By: #### E RUR ####[facility] Olrgkywudq14[address] [place], [place] [address]Dr. Donna Malone Clarity (U) SL CLOUDY Abnormal CLEAR [facility] Comment on above: Performed By: #### E RUR ####[facility] Ceeszgffma9[address] [place], [place] [address]Dr. Donna Malone Color (U) DK. YELLOW Normal YELLOW [facility] Comment on above: Performed By: #### E RUR ####[facility] Ugfspfvazo[address] [place], [place] [address]Dr. Donna ARCE A micrscopic examina tion will be performed if indicated. Normal [facility] Comment on above: Performed By: #### E RUR ####[facility] Xnrccvftob27[address] [place], [place] [address]Dr. Donna Malone Glucose Ql (U) 250 mg/dl Abnormal NEGATIVE [facility] Comment on above: Performed By: #### E RUR ####[facility] Vdkadsozyx9764[address] [place], [place] [address]Dr. Donna Malone Hemoglobin Ql (U) Negative Normal NEGATIVE [facility] Comment on above: Performed By: #### E RUR ####[facility] Bliplyouxz3144[address] [place], [place] [address]Dr. Donna Malone Ketones Ql (U) TRACE Abnormal NEGATIVE [facility] Comment on above: Performed By: #### E RUR ####[facility] Wockxuuvfo[address] [place], [place] [address]Dr. Donna Malone LEUKOCYTES Negative Normal NEGATIVE [facility] Comment on above: Performed By: #### E RUR ####[facility] Wswikqgrla0787[address] [place], [place] [address]Dr. Donna Malone Nitrite Ql (U) Negative Normal NEGATIVE [facility] Comment on above: Performed By: #### E RUR ####[facility] Wcnyandija7[address] [place], [place] [address]Dr. Donna Malone pH (U) 5.5 [pH] Normal 5-9 [facility] Comment on above: Performed By: #### E RUR ####[facility] Swjkdbxivh020[address] [place], [place] [address]Dr. Donna Malone SPEC GRAVITY >=1.030 Abnormal 1.005-<=1. 025 [facility] Comment on above: Performed By: #### E RUR ####[facility] Lirumacwhe3435[address] [place], [place] [address]Dr. Donna Malone UA PROTEIN TRACE Normal NEGATIVE/ TRACE [facility] Comment on above: Performed By: #### E RUR ####[facility] Xwwzhznvfh2499 [place] [address]Dr. Donna Malone UR MICRO IND NOT INDICATED Normal [facility] Comment on above: Performed By: #### E RUR ####[facility] Zlicgtzssq6969 [place] [address]Dr. Donna Malone Urobilinogen Qn (U) 1.0 {Jermain'U}/dL Normal 0.2 - 1. 0 [facility] Comment on above: Performed By: #### E RUR ####[facility] Aibcjacole[address] [place], [place] [address]Dr. Donna Malone ETHANOL (BLD ALC)on 05-13-20 22 ALC NOTE NOTE: 80 mg/dl is th e legal limit for a blood alcohol level Normal [facility] Comment on above: Performed By: #### E TH ####[facility] Myzgutdqcs24[address] [place], [place] [address]Dr. Rubyyvan Malone Ethanol [Mass/Vol] mg/dL Normal [facility] Comment on above: Performed By: #### E TH ####[facility] Abdswrdzqe006[address] [place], [place] [address]Dr. Donna Malone LACTATE/LACTIC ACIDon 2021 Lactate [Moles/Vol] 1.7 mmol/L Normal 0.4-1.9 [facility] Comment on above: Performed By: #### L ACT ####[facility] Tlzltmmofs7187[address] [place], [place] [address]Dr. Donna Malone POINT OF CARE GLUCOSEon Glucose [Mass/Vol] 99 mg/dL Normal 74-106 [facility] Comment on above: Performed By: #### P OCGLUC ####[facility] Vlhgrpxqax86[address] [place], [place] [address]Dr. Donna Malone PROF 14(COMP METB)on 022 Albumin [Mass/Vol] 3.1 g/dL Critically low 3.4-5.0 [facility] Comment on above: Performed By: #### C MP, CMADM, BNP ####[facility] Wupsizityl49[address] [place] [address]Dr. Donna Malone Albumin/Globulin [Mass ratio] 1.0 {ratio} Normal [facility] Comment on above: Performed By: #### C MP, CMADM, BNP ####[facility] Fmcxckcxmo6038 [place] [address]Dr. Donna Malone ALP [Catalytic activity/Vol] 37 U/L Critically low 46-116 [facility] Comment on above: Performed By: #### C MP, CMADM, BNP ####[facility] Bvaxfrzosg024[address] [place] [address]Dr. Donna Malone ALT [Catalytic activity/Vol] 14 U/L Critically low 16-63 [facility] Comment on above: Performed By: #### C MP, CMADM, BNP ####[facility] Qqdsrzroei4705 [place] [address]Dr. Donna Malone Anion gap [Moles/Vol] 12.3 mmol/L Normal [facility] Comment on above: Performed By: #### C MP, CMADM, BNP ####[facility] Cfhbozgtyu[address] [place], [place] [address]Dr. Donna Malone AST [Catalytic activity/Vol] 12 U/L Critically low 15-37 [facility] Comment on above: Performed By: #### C MP, CMADM, BNP ####[facility] Lgnogfehxy0205 [place] [address]Dr. Donna Malone Bilirubin [Mass/Vol] 0.4 mg/dL Normal 0.2-1.0 [facility] Comment on above: Performed By: #### C MP, CMADM, BNP ####[facility] Hvjawflsvo80[address] [place] [address]Dr. Donna Malone Calcium [Mass/Vol] 7.8 mg/dL Critically low 8.5-10.1 [facility] Comment on above: Performed By: #### C MP, CMADM, BNP ####[facility] Llhdhrpuqw5063 [place] [address]Dr. Donna Malone Chloride [Moles/Vol] 108 mmol/L Critically high 98-107 [facility] Comment on above: Performed By: #### C MP, CMADM, BNP ####[facility] Ezszmtzzyp3063 [place] [address]Dr. Donna Malone CO2 [Moles/Vol] 24.8 mmol/L Normal 21.0-32.0 [facility] Comment on above: Performed By: #### C MP, CMADM, BNP ####[facility] Vnhwwoerxj[address] [place], [place] [address]Dr. Donna Malone Creatinine [Mass/Vol] 1.83 mg/dL Critically high 0.70-1.30 [facility] Comment on above: Performed By: #### C MP, CMADM, BNP ####[facility] Nmdcbizwht[address] [place], [place] [address]Dr. Donna Malone EGFR-AF SAUDI ARABIAN 45 mL/min/1.73m2 Critically low >=60 [facility] Comment on above: Performed By: #### C MP, CMADM, BNP ####[facility] Nhxvyhplfl30[address] [place], [place] [address]Dr. Donna Malone EGFR-NON AF SAUDI ARABIAN 37 mL/min/1.73m2 Critically low >=60 [facility] Comment on above: Performed By: #### C MP, CMADM, BNP ####[facility] Zxiwtmcryj98[address] [place] [address]Dr. Donna Malone Globulin (S) [Mass/Vol] 3.2 g/dL Normal [facility] Comment on above: Performed By: #### C MP, CMADM, BNP ####[facility] Mxreftvnzw3496 [place] [address]Dr. Donna Malone Glucose [Mass/Vol] 202 mg/dL Critically high 74-106 [facility] Comment on above: Performed By: #### C MP, CMADM, BNP ####[facility] Tdjsuwnfrq3497 [place] [address]Dr. Donna Malone Potassium [Moles/Vol] 4.1 mmol/L Normal 3.5-5.1 [facility] Comment on above: Performed By: #### C MP, CMADM, BNP ####[facility] Rnjvewkztf3237 [place] [address]Dr. Donna Malone Protein [Mass/Vol] 6.3 g/dL Critically low 6.4-8.2 Th [facility] Comment on above: Performed By: #### C MP, CMADM, BNP ####[facility] Kcavkxiezo[address] [place] [address]Dr. Donna Malone Sodium [Moles/Vol] 141 mmol/L Normal 136-145 [facility] Comment on above: Performed By: #### C MP, CMADM, BNP ####[facility] Vtaiqjmhvc08[address] [place] [address]Dr. Donna Malone Urea nitrogen [Mass/Vol] 32.0 mg/dL Critically high 7.0-18.0 [facility] Comment on above: Performed By: #### C MP, CMADM, BNP ####[facility] Ozumzfvgjr7594 [place] [address]Dr. Donna Malone Urea nitrogen/Creatinine [Mass ratio] 17.5 mg/mg Normal [facility] Comment on above: Performed By: #### C MP, CMADM, BNP ####[facility] Ibfjxsxvcv[address] [place] [address]Dr. Donna Malone PROTIMEon 05-13-2022 INR Coag (PPP) [Relative time] 1.04 {INR} Normal [facility] Comment on above: Performed By: #### P T, PTT ####[facility] Pwierydxim11[address] [place], [place] [address]Dr. Donna Malone INR GUIDELINES SEE BELOW Normal [facility] Comment on above: Result Comment: FLORESITA RED INR: 2.0 - 3.0 CONDITIONS NOT LISTED BELOW 2.5 - 3.5 FOR PROSTHETIC HEART VALVE REPLACEMENT 2.5 - 3.5 RECURRENT THROMBOSIS Performed By: #### P T, PTT ####[facility] Cfwxpwwggh[address] [place], [place] [address]Dr. Donna Malone PT Coag (PPP) [Time] 11.2 s Normal 9.0-11.6 [facility] Comment on above: Performed By: #### P T, PTT ####[facility] Mjptluybbr2691 [place], [place] [address]Vw. Donna Malone PTTon 05-13-2022 aPTT Coag (Bld) [Time] 27.5 s Normal 22.3-36.2 [facility] Comment on above: Performed By: #### P T, PTT ####[facility] Txqvzzdyig3843 [place], [place] [address]Ao. Donna Malone XR CHEST 1 Von 05-13-2022 XR CHEST 1 V Normal [facility] Ambulatory Visit Summaryon 0 10-03-2021 Ambulatory Visit [...] physician if questions or concerns acetaminophen acetaminophen-hydrocodone ([place] 5/325 Tab) amlodipine (amLODIPine 5 mg Tab) [...] Urology [address], [place] [address]- Medications What How Much When Instructions New ciprofloxacin (Cipro 500 mg Tab) 1 Tablets By Mouth Every day Take 1 tablet the day before the procedure and 1 tablet after the procedure Pickup at [facility] Unchanged acetaminophen 650 Milligram Every 4 hours Contact prescribing physician if questions or concerns Unchanged acetaminophen-hydrocodone ([place] 5/ 325 Tab) 1 Tablets By Mouth [...] physician if questions or concerns Pharmacy Information [facility]: [address] [place], [place] [id number] [phone] (more content not included)... Normal [facility] Ambulatory Visit Summary TAYLOR MCCLELLAN SR :1955 [...] physician if questions or concerns acetaminophen acetaminophen-hydrocodone ([place] 5/325 Tab) amlodipine (amLODIPine 5 mg Tab) [...] [facility] [address], [place] [address]- Medications What How Much When Instructions New ciprofloxacin (Cipro 500 mg Tab) 1 Tablets By Mouth Every day Take 1 tablet the day before the procedure and 1 tablet after the procedure Pickup at [facility] Unchanged acetaminophen 650 Milligram Every 4 hours Contact prescribing physician if questions or concerns Unchanged acetaminophen-hydrocodone ([place] 5/ 325 Tab) 1 Tablets By Mouth [...] physician if questions or concerns Pharmacy Information [facility]: [address] [place] [id number] [phone] (more content not included)... Normal [facility] Retirement Recordson 10-03 Retirement Records [id number] Normal [facility] Patient Educationon 10-03-19 Patient Education Urology Benign [...] Follow these instructions at home: ? Take jxcr-wit-iwjinaz and prescription medicines only as told by [...] content not included)... Normal [facility] Urology Office/Clinic Noteon 10-03-2021 Urology Office/Clinic Note Chief Complaint This is a 66 year old male in the [place] ER on 09/14/21. This patient has a [...] is here today to reestablish urologic care. [employer] Pt. last seen in office 2018. S/P [employer] 10/30/18. Pt. was seen in the [facility] ER on 09/14/21 due to generalized [...] recently. Family was in the hospital at [place] where he had severe weakness. A Galindo [...] last seen in 2019. Patient was in [facility] 09/14/21 due to weakness and acute [...] content not included)... Normal [facility] Comment on above: Result Comment: Elec tronically Signed By: Lisandro Orourke Jr., MD\.br\Date and Time Signed: 10/03/21 12:37 EST\.br\Electronically Co-Signed By: Lisandra Arias\.br\Date and Time Co-Signed: 10/03/21 12:32 EST APTTon 10-13-2019 aPTT Coag (Bld) [Time] 34.9 s Normal 25.0-35.0 Th e [facility] Comment on above: Result Comment: [...] THIS PURPOSE. Performed By: #### 5 6101, [address] #### [address] CREATININE BLOODon 0 Creatinine [Mass/Vol] 1.07 mg/dL Normal 0.70-1.30 [facility] Comment on above: Performed By: #### 2 5656 #### [address] Creatinine [Mass/Vol] mg/dL Normal >60 [facility] Comment on above: Performed By: #### 2 5656 #### [address] LUMBAR SPINE W CONTRASTon 10-13-2019 CT LUMBAR SPINE W CONTRAST [facility] Department of Radiology [address] [place] [id number] Patient Name: TAYLOR MCCLELLAN : 1955 Sex: M Age: Race: White Pt. Location: 84 Patient Status: O Ordered Date: 09/11/2019 2:50:00 PM Completed Date: 10/13/2019 11:37 AM Requesting Provider: JASEN HOWARD Attending Provider: JASEN HOWARD Report Copy To: LUI BRYSON Signs & Symptoms: M51.36 Other intervertebral disc degeneration, lumbar region I10 History: [place] Need Saturday appointment call [facility] [phone] [facility] auth# [id number] 09/16/19-10/15/19 cpt code 81416 *mla Comments: Exam: CT LUMBAR SPINE W [...] achievable Electronically signed: Fredy Salmeron. Transcribed by: [email or web address], User Resident: Electronically Signed by: FREDY SALMERON @ 10/13/2019 02:08 PM Normal [facility] LUMBAR MYELOGRAMon 0 LUMBAR MYELOGRAM [facility] Department of Radiology [address] [place] [id number] Patient Name: TAYLOR MCCLELLAN : 1955 [...] risks are acceptable. Consent was obtained. Timeout: Brandeis protocol timeout verification performed. PROCEDURE: Estimated blood [...] reports Electronically signed: Fredy Salmeron. Transcribed by: [email or web address], User Resident: KRISTINE BALLARD Electronically Signed by: HARRYHALINA FAVIOLA @ 10/13/2019 06:58 PM I personally read this/these film(s) with this resident Normal [facility] Comment on above: Order Comment: , , = ========= , Ordering Provider - JASEN HOWARD MD , PROTHROMBIN TIMEon 0 INR Coag (PPP) [Relative time] 1.05 {INR} Normal 0.91-1.16 [facility] Comment on above: Result Comment: [...] RANGE. CHEST 1995;[id number]. Performed By: #### [id number] #### [facility] [address] [place] [address], [facility] PT Coag (PPP) [Time] 13.7 s Normal 12.3-14.8 [facility] Comment on above: Result Comment: ALL RESULTS MUST BE INTERPRETED WITH RESPECT TO BLOOD DRAWING ARTIFACT OR DILUTION ERROR OF ANTICOAGULANT AT THE TIME OF SAMPLING. Performed By: #### [id number], [id number] #### [facility] [address] [place] [address], [facility] Laboratory Studieson 019 HBV surface Ab Ql (S) Non reactive F [facility] Work Phone: Comment on above: Non Reactive: Incons istent with immunity, less than 10 mIU/mL Reactive: Consistent with immunity, greater than 9.9 mIU/mL HBV surface Ag IA Ql Negative [facility] Work Phone: Comment on above: Performed at: - [facility] [id number] Mat Man: Arnold Cabral PhD, Phone: [phone] HCV Ab Signal/Cutoff IA RelACnc 0.1 s/co ratio [facility] Work Phone: Hepatitis C Antibody Comment See comment [facility] Work Phone: Comment on above: Non reactive HCV ant ibody screen is consistent with no HCV infection, unless recent infection is suspected or other evidence exists to indicate HCV infection. HIV 1+2 Ab IA Ql Nonreactive [facility] Work Phone: Laboratory Studieson 018 Glucose mass conc Glu2: cleaned meter [facility] Work Phone: Glucose mass conc 121 mg/dL [facility] Work Phone: Comment on above: Random Glucose Refer ence Range is dependent on time and content of last meal. Glucose of more than 200 mg/dL in a nonstressed, ambulatory subject supports the diagnosis of Diabetes Mellitus. Calcium mass conc 8.7 mg/dL 8.2-10.[address] [facility] Work Phone: Chloride molar conc 102 mmol/L 95-114 [facility] Work Phone: CO2 molar conc 27.5 mmol/L 22.0-30.0 [facility] Work Phone: Creatinine mass conc 1.08 mg/dL 0.64-1.27 [facility] Work Phone: GFR/1.73 sq M predicted among blacks MDRD vol rate/area (S/P/Bld) mL/min/{1.73_m2} [facility] Work Phone: Comment on above: GFR estimated refere nce range: According to KDOQI guidelines, <60 ml/min/1.73m2 is sufficient to diagnose a patient with chronic kidney disease. GFR/1.73 sq M predicted among non-blacks MDRD vol rate/area (S/P/Bld) mL/min/{1.73_m2} [facility] Work Phone: Glucose mass conc 86 mg/dL 70-[address] [facility] Work Phone: Comment on above: ADA recommended refe rence range Random Glucose Reference Range is dependent on time and content of last meal. Glucose of more than 200 mg/dL in a nonstressed, ambulatory subject supports the diagnosis of Diabetes Mellitus. Pharmacy Creatinine Clearance (Chem 88.1842 [facility] Work Phone: Potassium molar conc 3.5 mmol/L 3.5-5.1 [facility] Work Phone: Sodium molar conc 139 mmol/L 136-[address] [facility] Work Phone: Urea nitrogen mass conc 10 mg/dL 9-23 [facility] Work Phone: Laboratory Studieson 02-11- 018 Basophils #/vol (Bld) 0.1 10*3/uL 0.0-0.2 [facility] Work Phone: Basophils/100 WBC (Bld) 1.0 % [facility] Work Phone: Eosinophils #/vol (Bld) 0.2 10*3/uL 0.0-0.45 [facility] Work Phone: Eosinophils/100 WBC (Bld) 2.8 % [facility] Work Phone: Erythrocyte distribution width Ratio (RBC) 13.9 % 12.0-14.8 [facility] Work Phone: Hematocrit Volume Fraction (Bld) 36.3 % Low 38.8-50.0 [facility] Work Phone: Hemoglobin mass conc (Bld) 12.5 g/dL Low 13.0-17.0 [facility] Work Phone: Lymphocytes #/vol (Bld) 1.6 10*3/uL 1.00-4.8 [facility] Work Phone: Lymphocytes/100 WBC (Bld) 23.7 % [facility] Work Phone: MCH Entitic mass (RBC) 28.9 pg 27.5-35.2 [facility] Work Phone: MCHC mass conc (RBC) 34.3 g/dL 32.5-35.6 [facility] Work Phone: MCV Entitic volume (RBC) 84.4 fL 83.5-101 [facility] Work Phone: Monocytes #/vol (Bld) 0.4 10*3/uL 0.0-0.8 [facility] Work Phone: Monocytes/100 WBC (Bld) 6.7 % [facility] Work Phone: Neutrophils #/vol (Bld) 4.4 10*3/uL 1.8-7.7 [facility] Work Phone: Neutrophils/100 WBC (Bld) 65.8 % [facility] Work Phone: Platelet mean volume Entitic volume (Bld) 10.3 fL High 6.6-10.1 [facility] Work Phone: Platelets #/vol (Bld) 199 10*3/uL 150-450 [facility] Work Phone: RBC #/vol (Bld) 4.31 10*6/uL 3.90-5.[address] [facility] Work Phone: WBC #/vol (Bld) 6.6 10*3/uL 4.1-10.5 [facility] Work Phone: Laboratory Studieson 018 Appearance Nom (U) Slightly cloudy Abnormal F [facility] Work Phone: Bacteria Auto Ql (U) None seen [facility] Work Phone: Bilirubin Ql (U) Negative [facility] Work Phone: Color Nom (U) Yellow [facility] Work Phone: Creatinine mass conc (U) 143.4 mg/dL [facility] Work Phone: Comment on above: No reference range e stablished Epithelial cells Auto #/area (Urine sed) Rare /HPF [facility] Work Phone: Glucose Automated test strip mass conc (U) Normal mg/dL [facility] Work Phone: Hemoglobin Automated test strip Ql (U) 1+ High [facility] Work Phone: Ketones mass conc (U) 1+ High [facility] Work Phone: Leukocyte esterase Automated test strip Ql (U) Negative [facility] Work Phone: Nitrite Automated test strip Ql (U) Negative [facility] Work Phone: pH (U) 5.5 [pH] 5.0-9.0 [facility] Work Phone: pH (U) [pH] 1.001-1.03 0 [facility] Work Phone: Protein mass conc (U) Negative [facility] Work Phone: RBC Auto #/area (Urine sed) 1-2 /HPF [facility] Work Phone: Sodium molar conc (U) 144.0 mmol/L F [facility] Work Phone: Comment on above: No reference range e stablished Urate crystals LM.HPF #/area (Urine sed) 3 /[HPF] [facility] Work Phone: Urobilinogen mass conc (U) Normal mg/dL [facility] Work Phone: WBC Auto #/area (Urine sed) None seen /HPF [facility] Work Phone: Albumin mass conc 2.7 g/dL Low 3.2-5.[address] [facility] Work Phone: Albumin/Globulin mass ratio 0.8 {ratio} [facility] Work Phone: ALP enzyme act/vol 39 U/L 32-92 [facility] Work Phone: ALT No additional P-5'-P enzyme act/vol 14 U/L 10-60 [facility] Work Phone: AST enzyme act/vol 25 U/L 10-42 [facility] Work Phone: Bilirubin mass conc 0.6 mg/dL 0.3-1.2 [facility] Work Phone: Globulin mass conc (S) 3.6 g/dL [facility] Work Phone: Protein mass conc 6.3 g/dL 6.1-7.[address] [facility] Work Phone: Laboratory Studieson 018 T3 free mass conc 3.28 pg/mL 2.50-3.[address] [facility] Work Phone: T4 free mass conc 0.95 ng/dL 0.61-1.[address] [facility] Work Phone: Amphetamines Ql (U) Negative [facility] Work Phone: Barbiturates Ql (U) Negative [facility] Work Phone: Benzodiazepines Ql (U) Positive High [facility] Work Phone: Cannabinoids Screen Ql (U) Negative [facility] Work Phone: Comment on above: These are unconfirme d results and should not be used for legal purposes. Drug Cut-Off Concentration: AMPH 1000 ng/mL EWA 200 ng/mL JOHN 200 ng/mL COCM 300 ng/mL OP 300 ng/mL PCP 25 ng/mL THC 20 ng/mL Cocaine Ql (U) Negative [facility] Work Phone: Opiates Ql (U) Positive High [facility] Work Phone: Phencyclidine Ql (U) Negative [facility] Work Phone: Ammonia mass conc (Unsp spec) 20 umol/L 11-35 [facility] Work Phone: Bilirubin.direct mass conc 0.2 mg/dL 0.0-0.4 [facility] Work Phone: Bilirubin.indirect mass conc 0.8 mg/dL [facility] Work Phone: Cobalamin (Vitamin B12) mass conc 365 pg/mL 180-914 [facility] Work Phone: Folate mass conc 12.4 ng/mL [facility] Work Phone: Comment on above: Folate reference ran ge: >5.9 ng/ml The WHO technical consultation on folate and vitamin b12 deficiencies has determined that folate concentrations less than 4 ng/ml are considered deficient. Magnesium molar conc (Unsp spec) 1.7 mg/dL 1.6-2.6 [facility] Work Phone: Thyrotropin Qn 0.20 uIU/mL Low 0.45-5.33 [facility] Work Phone: Comment on above: Revised TSH Assay This assay is standardized to the World Health Organization International Standard for human TSH. Please note Reference Intervals have changed. Laboratory Studieson 018 Casts LM Nom (Urine sed) N/A [facility] Work Phone: Epithelial cells.renal LM.HPF #/area (Urine sed) Rare /HPF [facility] Work Phone: Hyaline casts Auto #/vol (U) 20-49 /LPF High [facility] Work Phone: [phone] Lactate molar conc (U) 0.9 mmol/L [facility] Work Phone: CK enzyme act/vol 107 U/L 22-[address] [facility] Work Phone: Phosphate mass conc 5.0 mg/dL High 2.5-4.6 [facility] Work Phone: Laboratory Studieson 017 Glucose mass conc 122 mg/dL [facility] Work Phone: Comment on above: RANDOM GLUCOSE REFER ENCE RANGE IS DEPENDENT ON TIME AND CONTENT OF LAST MEAL.GLUCOSE OF MORE THAN 200MG/DL IN A NONSTRESSED,AMBULATORY SUBJECT SUPPORTS THE DIAGNOSIS OF DIABETES MELLITUS. Laboratory Studieson 017 Basophils #/vol (Bld) 0.1 10*3/uL 0.0-0.2 [facility] Work Phone: Basophils/100 WBC (Bld) 0.9 % [facility] Work Phone: Calcium mass conc 8.6 mg/dL 8.2-10.[address] [facility] Work Phone: Chloride molar conc 109 mmol/L 95-114 [facility] Work Phone: CK enzyme act/vol 355 U/L High 22-[address] [facility] Work Phone: CO2 molar conc 19.5 mmol/L Low 22.0-30.0 [facility] Work Phone: Creatinine mass conc 0.99 mg/dL 0.64-1.27 [facility] Work Phone: Eosinophils #/vol (Bld) 0.20 10*3/uL 0.0-0.45 [facility] Work Phone: Eosinophils/100 WBC (Bld) 3.3 % [facility] Work Phone: Erythrocyte distribution width Ratio (RBC) 13.8 % 12.0-14.8 [facility] Work Phone: Estimated GFR (Non- > 60 [facility] Work Phone: GFR/1.73 sq M.predicted MDRD (S/P/Bld) [Vol rate/Area] mL/min/{1.73_m2} [facility] Comment on above: GFR estimated refere nce range: According to KDOQI guidelines, <60 ml/min/1.73m2 is sufficient to diagnose a patient with chronic kidney disease. GFR/1.73 sq M.predicted MDRD vol rate/area mL/min/{1.73_m2} [facility] Work Phone: Comment on above: GFR estimated refere nce range: According to KDOQI guidelines, <60 ml/min/1.73m2 is sufficient to diagnose a patient with chronic kidney disease. Glucose mass conc 94 mg/dL 70-[address] [facility] Work Phone: Comment on above: ADA RECOMMENDED REFE RENCE RANGE Hematocrit Volume Fraction (Bld) 41.5 % 38.8-50.0 [facility] Work Phone: Hemoglobin mass conc (Bld) 14.1 g/dL 13.0-17.0 [facility] Work Phone: Lymphocytes #/vol (Bld) 2.6 10*3/uL 1.00-4.8 [facility] Work Phone: Lymphocytes/100 WBC (Bld) 40.3 % [facility] Work Phone: MCH Entitic mass (RBC) 30.4 pg 27.5-35.2 [facility] Work Phone: MCHC mass conc (RBC) 34.1 g/dL 32.5-35.6 [facility] Work Phone: MCV Entitic volume (RBC) 89.2 fL 83.5-101 [facility] Work Phone: Monocytes #/vol (Bld) 0.4 10*3/uL 0.0-0.8 [facility] Work Phone: Monocytes/100 WBC (Bld) 6.4 % [facility] Work Phone: Neutrophils #/vol (Bld) 3.1 10*3/uL 1.8-7.7 [facility] Work Phone: Neutrophils (%) (Auto) 49.1 % [facility] Work Phone: Neutrophils/100 WBC (Bld) 49.1 % [facility] Platelet mean volume Entitic volume (Bld) 10.7 fL High 6.6-10.1 [facility] Work Phone: Platelets #/vol (Bld) 160 10*3/uL 150-450 [facility] Work Phone: Potassium molar conc 3.4 mmol/L Low 3.5-5.1 [facility] Work Phone: RBC #/vol (Bld) 4.65 10*6/uL 3.90-5.[address] [facility] Work Phone: Sodium molar conc 138 mmol/L 136-[address] [facility] Work Phone: Urea nitrogen mass conc 7 mg/dL Low 9-23 [facility] Work Phone: WBC #/vol (Bld) 6.4 10*3/uL 4.1-10.5 [facility] Work Phone: Laboratory Studieson 017 Platelet Aggregation (ADP) 57.8 % 0-100 [facility] Work Phone: Comment on above: NO REFERENCE RANGE I S ESTABLISHED OR APPLICABLE Platelet Inhibition ADP 42.2 % 0-100 [facility] Work Phone: Comment on above: NO REFERENCE RANGE I S ESTABLISHED OR APPLICABLE TEG Max Amplitude (Citrated) 69.9 mm 50-70 [facility] Work Phone: TEG Max Amplitude (Rapid) 29.9 0-90 [facility] Work Phone: Comment on above: TEG MA A HAS NO REFE RENCE RANGE Thrombelastograph (TEG) Net G ADP 53.0 MM 0-90 [facility] Work Phone: Comment on above: TEG MA ADP HAS NO RE FERENCE RANGE Albumin mass conc 3.1 g/dL Low 3.2-5.[address] [facility] Work Phone: Albumin/Globulin mass ratio 1.0 {ratio} [facility] Work Phone: ALP enzyme act/vol 44 U/L 32-92 [facility] Work Phone: ALT enzyme act/vol 18 U/L 10-60 [facility] Work Phone: AST enzyme act/vol 27 U/L 10-42 [facility] Work Phone: Bilirubin Ql (U) 0.6 mg/dL 0.3-1.2 [facility] Work Phone: Bilirubin.direct mass conc 0.1 mg/dL 0.0-0.4 [facility] Work Phone: Bilirubin.indirect mass conc (Body fld) 0.5 mg/dL [facility] Work Phone: Cholesterol in HDL mass conc 26 mg/dL Low 29-71 [facility] Work Phone: Comment on above: HDL CHOL ATP-III CLA SSIFICATION Cardiovascular Risk HDL > or equal to 60 mg/dL Low HDL < 40 mg/dL High Cholesterol mass conc 150 mg/dL 140-200 [facility] Work Phone: Comment on above: CHOL less than 200 m g/dL Low risk CHOL 201-239 mg/dL Borderline risk CHOL 240 mg/dL and greater High risk Cholesterol mass conc 30 mg/dL [facility] Work Phone: Cholesterol.total/Chol esterol in HDL mass ratio 5.8 {ratio} [facility] Work Phone: Globulin mass conc (S) 3.2 g/dL [facility] Work Phone: LDL Cholesterol, Calculated 93 mg/dL 0-100 [facility] Work Phone: Comment on above: LDL ATP III CLASSIFI CATION LDL less than 100 mg/dL Optimal LDL 100-129 mg/dL Near or above optimal LDL 130-159 mg/dL Borderline high LDL 160-189 mg/dL High LDL greater than 189 mg/dL Very high Protein mass conc 6.3 g/dL 6.1-7.[address] [facility] Work Phone: Thyrotropin Qn 1.12 uIU/mL 0.45-5.33 [facility] Work Phone: Comment on above: Revised TSH Assay This assay is standardized to the World Health Organization International Standard for human TSH. Please note Reference Intervals have changed. Triglyceride mass conc 153 mg/dL High 35-149 [facility] Work Phone: Comment on above: TRIG ATP III CLASSIF ICATION TRIG less than 150 mg/dL Normal TRIG 150-199 mg/dL Borderline high TRIG 200-500 mg/dL High TRIG greater than 500 mg/dL Very high Standard traceable to the Center for Disease Conrtrol and Prevention (CDC) test method. Laboratory Studieson 017 Glucose mass conc Glu2: cleaned meter [facility] Work Phone: Ammonia mass conc (P) 19 umol/L 11-35 [facility] Work Phone: Cobalamin (Vitamin B12) mass conc 202 pg/mL 180-914 [facility] Work Phone: Folate 10.7 ng/mL [facility] Work Phone: Comment on above: FOLATE REFERENCE RAN GE: >5.9 ng/mL The WHO Technical Consultation on folate and vitamin B12 deficiencies has determined that folate concentrations less than 4 ng/mL are considered deficient. Amphetamines Ql (U) Negative [facility] Work Phone: Appearance Nom (U) Clear [facility] Work Phone: Bacteria LM.HPF #/area (Urine sed) None seen [facility] Work Phone: Benzodiazepines Ql (U) Positive [facility] Work [facility]: Bilirubin Ql (U) Negative [facility] Work Phone: Cocaine Ql (U) Negative [facility] Work Phone: Color Nom (U) Yellow [facility] Work Phone: Epithelial cells.squamous LM.HPF #/area (Urine sed) 5-9 /hpf High [facility] Work Phone: Glucose mass conc (U) 250 mg/dL High [facility] Work Phone: Hyaline casts LM Ql (Urine sed) 0-8 /lpf [facility] Work Phone: Ketones Ql (U) Trace [facility] Work Phone: Leukocyte esterase Test strip Ql (U) Negative [facility] Work Phone: Nitrite Ql (U) Negative [facility] Work Phone: Opiates Ql (U) Negative [facility] Work Phone: pH (U) 5.0 [pH] 5.0-9.0 [facility] Work Phone: Phencyclidine Ql (U) Negative [facility] Work Phone: Protein Ql (U) Negative [facility] Work Phone: RBC #/vol (U) 50-100 /hpf [facility] Work Phone: Specific gravity Relative Density (U) 1.039 High 1.001-1.03 0 [facility] Work Phone: Urine Barbiturates Screen Negative [facility] Work Phone: Urine Collection Type Type [facility] Work Phone: Comment on above: CATHETERIZED Urine Drug Screen Comment See comment [facility] Work Phone: Comment on above: THESE ARE UNCONFIRME D RESULTS AND SHOULD NOT BE USED FOR LEGAL PURPOSES. DRUG CUT-OFF CONCENTRATION: AMPH 1000 ng/mL EWA 200 ng/mL JOHN 200 ng/mL COCM 300 ng/mL OP 300 ng/mL PCP 25 ng/mL THC 20 ng/mL Urine Marijuana (THC) Screen Negative [facility] Work Phone: Urine Occult Blood 3+ High [facility] Work Phone: Urine Transitional Epithelial Cells 3-4 /hpf High [facility] Work Phone: Urobilinogen Qn (U) Normal mg/dL [facility] Work Phone: WBC #/vol (U) 0-1 /hpf [facility] Work Phone: Bedside Ionized Calcium (Deepti) 1.22 mmol/L 1.12-1.32 [facility] Work Phone: Bedside Total CO2 23 mmol/L 23-[address] [facility] Work Phone: Chloride molar conc 110.0 mmol/L High 98-109 [facility] Work Phone: Creatinine mass conc 1.2 mg/dL 0.6-1.3 [facility] Work Phone: Comment on above: ER/ESD PHYSICIAN IS NOTIFIED/SHOWN ALL ISTAT RESULTS. CRITICAL VALUES MAY BE CONFIRMED BY LABORATORY TESTING IF DEEMED NESCESSARY BY ER ATTENDING DOCTOR Glucose mass conc 135 mg/dL High 70-[address] [facility] Work Phone: Hematocrit Volume Fraction (Bld) 48.0 % 38.0-51.0 [facility] Work Phone: Hemoglobin mass conc (Bld) 16.3 g/dL 12.0-17.0 [facility] Work Phone: Potassium molar conc 4.7 mmol/L 3.5-4.9 [facility] Work Phone: Sodium molar conc 144 mmol/L 138-[address] [facility] Work Phone: Urea nitrogen mass conc 15 mg/dL 8-26 [facility] Work Phone: Amylase enzyme act/vol 39 U/L 28-100 [facility] Work Phone: CK.MB mass conc 9.5 ng/mL High 0.6-6.3 [facility] Work Phone: Creatine Kinase MB Relative Index 1.5 0.00-2.50 [facility] Work Phone: Ethyl Alcohol Level < 5 mg/dL [facility] Work Phone: Glucose mass conc 140 mg/dL High 70-[address] [facility] Work Phone: Comment on above: RANDOM GLUCOSE REFER ENCE RANGE IS DEPENDENT ON TIME AND CONTENT OF LAST MEAL.GLUCOSE OF MORE THAN 200MG/DL IN A NONSTRESSED,AMBULATORY SUBJECT SUPPORTS THE DIAGNOSIS OF DIABETES MELLITUS. Lipase enzyme act/vol 22.0 U/L 22-51 [facility] Work Phone: Percent Ethyl Alcohol < 0.005 % [facility] Work Phone: Troponin I.cardiac mass conc ng/mL 0-0.02 [facility] Work Phone: Comment on above: [place] Cut off value > or equal to 0.03 ng/mL in conjunction with clinical conditions of myocardial infarction. ([email or web address].org/guidelines) Glucose mass conc 134 mg/dL [facility] Work Phone: Hemoglobin A1c/Hemoglobin.total mass fraction (Bld) 6.3 % High 4.3-5.6 [facility] Work Phone: Comment on above: Increased risk for d iabetes: 5.7 - 6.4 Diabetes: >6.4 Glycemic control for adults with diabetes: <7.0 Vital Signs Date Time Vital Sign Value Performing Clinician Facility 11-05-2022 14:30-0500 Diastolic blood pressure 72 mm[Hg] [address] Other [facility] Other 11-05-2022 14:30-0500 SaO2% (BldA) [Mass fraction] 97 % Benson Domingo Other [facility] Other 11-05-2022 14:30-0500 Systolic blood pressure 118 mm[Hg] [address] Other [facility] Other 10-18-2022 14:00-0500 Body weight 96.71 kg Benson Domingo Other [facility] Other 10-18-2022 14:00-0500 Diastolic blood pressure 64 mm[Hg] [address] Other [facility] Other 10-18-2022 14:00-0500 SaO2% (BldA) [Mass fraction] 98 % [address] Other [facility] Other 10-18-2022 14:00-0500 Systolic blood pressure 120 mm[Hg] [address] Other [facility] Other 07-20-2022 16:00-0500 Body temperature 97.4 [degF] MD Genesis Reynolds Work Phone: [facility] 07-20-2022 16:00-0500 Diastolic blood pressure 72 mm[Hg] MD Genesis Reynolds Work Phone: [facility] 07-20-2022 16:00-0500 Heart rate 61 /min MD Genesis Reynolds Work Phone: [facility] 07-20-2022 16:00-0500 Respiratory rate 16 /min MD Genesis Reynolds Work Phone: [facility] 07-20-2022 16:00-0500 SaO2% (BldA) [Mass fraction] 98 % MD Genesis Reynolds Work Phone: [facility] 07-20-2022 16:00-0500 Systolic blood pressure 159 mm[Hg] MD Genesis Reynolds Work Phone: [facility] 07-20-2022 06:00-0500 Body weight 95.3 kg MD Genesis Reynolds Work Phone: [facility] 07-18-2022 11:22-0500 Body height 177.8 cm MD Genesis Reynolds Work Phone: [facility] 07-17-2022 22:14-0500 Body height 177.8 cm MD Genesis Reynolds Work Phone: [facility] 07-17-2022 22:14-0500 Body temperature 97.5 [degF] MD Genesis Reynolds Work Phone: [facility] 07-17-2022 22:14-0500 Body weight 95.9 kg MD Genesis Reynolds Work Phone: [facility] 07-17-2022 22:14-0500 Diastolic blood pressure 87 mm[Hg] MD Genesis Reynolds Work Phone: [facility] 07-17-2022 22:14-0500 Heart rate 74 /min MD Genesis Reynolds Work Phone: [facility] 07-17-2022 22:14-0500 Respiratory rate 16 /min MD Genesis Reynolds Work Phone: [facility] 07-17-2022 22:14-0500 SaO2% (BldA) [Mass fraction] 99 % MD Geensis Reynolds Work Phone: [facility] 07-17-2022 22:14-0500 Systolic blood pressure 180 mm[Hg] MD Genesis Reynolds Work Phone: [facility] 02-13-2018 14:12-0400 Body Temperature 98 [degF] [facility] 02-13-2018 14:12-0400 BP Diastolic 74 mm[Hg] [facility] 02-13-2018 14:12-0400 BP Systolic 113 mm[Hg] Bro [facility] 02-13-2018 14:12-0400 Pulse Oximetry 95 % [facility] 02-13-2018 14:12-0400 Respiratory Rate 18 /min [facility] 02-11-2018 22:00-0400 Pulse (Heart Rate) 73 /min [facility] NEGATED: Highlighted row BMI (Body Mass Index) [facility] NEGATED: Highlighted row BMI (Body Mass Index) [facility] NEGATED: Highlighted row Height Bro Sanford [facility] NEGATED: Highlighted row Height [facility] Encounters Encounter Date Encounter Type Care Provider Facility Start: 09-27-2024 End: 09-27-2024 Clinisync Result Encounter Vianey Zaldivar MD Work Phone: [facility] External [facility] Unsolicited Start: 09-27-2024 End: 09-27-2024 Clinisync Result Encounter Vianey Zaldivar MD Work Phone: [facility] External [facility] Unsolicited Start: 09-09-2024 End: 09-09-2024 ambulatory Genesis Valles jung [facility] Work Phone: Start: 09-09-2024 End: 09-09-2024 Departed Referred Genesis Reynolds MD Work Phone: [facility] Path [facility] Start: 06-24-2024 End: 06-25-2024 Refill Vianey Zaldivar MD Work Phone: [facility] Comment on above: Primary hypertension (CMS/HCC) (Primary Dx) Start: 05-04-2024 ambulatory [facility] Start: 04-30-2024 ambulatory [facility] Start: 04-29-2024 End: 05-04-2024 Emergency department patient visit [facility] Start: 03-26-2024 End: 03-26-2024 ambulatory [facility] Start: 02-25-2024 End: 02-[facility] Start: 02-17-2024 End: 02-17-2024 ambulatory [facility] Start: 02-17-2024 End: 02-17-2024 Encounter for other preprocedural examination [facility] Start: 11-10-2023 End: 11-11-2023 [facility] Start: 11-10-2023 End: 11-10-2023 Subsequent hospital visit by physician Bro Sanford MD Work Phone: [facility] Start: 04-26-2023 End: 04-27-2023 ambulatory EBENEZER HOPKINS [facility] Start: 04-25-2023 End: 04-26-2023 Emergency department patient visit BRO SANFORD [facility] Start: 01-17-2023 End: 01-17-[address] GENESIS REYNOLDS . Facility:[facility] Start: 12-06-2022 End: 12-06-[address] Other [facility] Other Start: 12-06-[address] [facility] [employer] Start: 11-15-2022 End: 11-17-2022 Evaluation and management of inpatient DR GENESIS REYNOLDS . Facility:[facility] Start: 11-13-2022 End: 11-13-2022 ambulatory Benson Domingo Other [facility] Other Start: 11-13-2022 Telephone encounter Benson Domingo [facility] Start: 11-05-2022 End: 11-05-2022 ambulatory Benson Domingo Other [facility] Other Start: 11-05-2022 Office outpatient vi sit 15 minutes Benson Domingo [facility] Start: 11-01-2022 End: 11-01-2022 ambulatory MD Genesis Reynolds Work Phone: [facility] Work Phone: Start: 11-01-2022 End: 11-01-2022 Patient encounter procedure MD Genesis Reynolds Work Phone: [facility] Work Phone: Start: 10-26-2022 End: 10-27-[address] GENESIS REYNOLDS . Facility:[facility] Start: 10-25-2022 (PROC) PROCEDURE Benson [facility]os [facility] Start: 10-25-2022 End: 10-26-[address] GENESIS REYNOLDS . [facility] Other Start: 10-18-2022 End: 10-18-[address] Other [facility] Other Start: 10-18-2022 Office outpatient ne w [address] [facility] Start: 10-18-2022 Telephone encounter Benson Domingo [facility] Start: 08-22-2022 ambulatory Ms. Lilia Orourke Facility:[id number] Start: 08-10-2022 End: 08-10-[address] GENESIS REYNOLDS . Facility:[facility] Start: 08-04-2022 End: 08-04-[address] GENESIS REYNOLDS . Facility:[facility] Start: 07-20-2022 ambulatory Mourhaf Traboulssi Faci lity:[id number] Start: 07-19-2022 ambulatory Mourhaf Traboulssi Faci lity:[id number] Start: 07-18-2022 ambulatory Mourhaf Traboulssi Faci lity:[facility] Start: 07-17-2022 ambulatory Mourhaf Traboulssi Faci lity:[id number] Start: 07-17-2022 End: 07-20-2022 Evaluation and management of inpatient MD Genesis Reynolds Work Phone: [facility] Start: 07-17-2022 End: 07-20-2022 observation encounter MD Genesis Reynolds Work Phone: [facility] Work Phone: Start: 07-15-2022 End: 07-16-[address] GENESIS REYNOLDS . Facility:[facility] Start: 06-21-2022 End: 06-22-[address] GENESIS REYNOLDS . Facility:[facility] Start: 05-13-2022 End: 05-16-2022 Evaluation and management of inpatient DR GENESIS REYNOLDS . Facility:[facility] Start: 05-07-[address] GENESIS REYNOLDS . Facili ty:[facility]1 Start: 12-17-2019 Preoperative state MD Genesis Reynolds Work Phone: [facility] Start: 12-24-2018 End: 12-24-2018 Patient encounter procedure Bro Sanford [facility] Start: 02-08-2018 End: 02-13-2018 Evaluation and management of inpatient Bro Sanford [facility] Start: 01-12-2018 End: 01-17-2018 Evaluation and management [facility] Start: 04-02-2017 End: 04-05-2017 Evaluation and management of inpatient [facility] Start: 06-09-2006 End: 07-09-2006 Discharged Recurring Bro Sanford [facility] Start: 04-09-2006 End: 05-09-2006 Discharged Recurring Bro Sanford [facility] Start: 03-09-2006 End: 04-08-2006 Discharged Recurring Bro Sanford [facility] Start: 02-22-2006 End: 03-08-2006 Discharged Recurring Bro Sanford [facility] Start: 02-10-2006 End: 02-14-2006 Evaluation and management of inpatient [facility] Start: 05-10-2000 End: 06-08-2000 Discharged Recurring Bro Sanford [facility] Start: 04-09-2000 End: 05-09-2000 Discharged Recurring [facility] Start: 03-09-2000 End: 04-08-2000 Discharged Recurring Bro Sanford [facility] Start: 02-08-2000 End: 03-08-2000 Discharged Recurring Bro Sanford [facility] Start: 01-08-2000 End: 02-07-2000 Discharged Recurring Bro Sanford [facility] Start: 12-09-1999 End: 02-07-2000 Discharged Recurring Bro Sanford [facility] Start: 11-08-1999 End: 12-08-1999 Discharged Recurring [facility] Start: 10-10-1999 End: 11-07-1999 Discharged Recurring [facility] Start: 09-09-1999 End: 10-09-1999 Discharged Recurring [facility] Start: 08-09-1999 End: 10-09-1999 Discharged Recurring [facility] Start: 07-10-1999 End: 08-08-1999 Discharged Recurring [facility] Start: 06-26-1999 End: 07-09-1999 Discharged Recurring [facility] Start: 03-29-1998 End: 03-29-1998 Patient encounter procedure Bro [facility] Start: 02-24-1987 End: 02-28-1987 [facility] Start: 12-22-1986 End: 12-23-1986 Evaluation and management of inpatient Bro [facility] Procedures Date Procedure Procedure Detail Performing Clinician Start: 09-27-2024 ALL CBC WITH AUTO DIFF Vianey Zaldivar MD Work Phone: Start: 11-10-2023 Urnls dip stick/tabl et reagent auto microscopy Susan Uriostegui 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 MANAGER - 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 Work Phone: Start: 11-01-2022 X-ray of lumbar [...] - Tdap) DTaP/Tdap/Td vaccine (2 - Tdap) [facility] Start: 09-09-2024 Bacteria identified in Blood by Culture Blood Culture [facility] Start: 09-09-2024 [facility] Start: 05-10-2024 Influenza vaccination Influenza Vacc ine (#1) [facility] Start: 04-26-2024 Lipid panel Lipids [place] [employer] [facility] [employer] Start: 04-25-2024 GFR test (Diabetes, CKD 3-4, OR last GFR 15-59) GFR test (Diabetes, CKD 3-4, OR last GFR 15-59) [facility] Start: 08-05-2023 Annual Wellness Visi t (Medicare) Annual Wellness Visit (Medicare) [facility] Start: 05-10-2023 COVID-19 Vaccine ( season) COVID-19 Vaccine ( season) [facility] Start: 04-09-2023 Influenza vaccination Flu vaccine (# 1) [facility] Start: 07-20-2022 [facility] Start: 07-18-2022 Lipid panel [facility] Start: 07-17-2022 Hospital admission [facility] Start: 07-17-2022 Physical therapy procedure [facility] Start: 07-17-2022 Referral to church history teacher [facility] Start: 07-17-2022 Referral to occupational therapist [facility] Start: 07-17-2022 [facility] Start: 07-17-2022 [facility] Start: 11-29-2021 Pneumococcal Vaccine : 65+ Years (2 of 2 - PPSV23 or PCV20) Pneumococcal Vaccine: 65+ Years (2 of 2 - PPSV23 or PCV20) [facility] Start: 2021 Abdominal aortic aneurysm screening AAA screen [facility] Start: 01-24-2021 Pneumococcal 65+ yea rs Vaccine (2 - PPSV23 or PCV20) Pneumococcal 65+ years Vaccine (2 - PPSV23 or PCV20) [facility] Start: 2016 Respiratory Syncytia l Virus (RSV) or age 60 yrs+ (1 - 1-dose 60+ series) Respiratory Syncytial Virus (RSV) or age 60 yrs+ (1 - 1-dose 60+ series) [facility] Start: 2006 Screening for malign ant neoplasm of lung Low dose CT lung screening &/or counseling [facility] Start: 2006 Shingles vaccine (1 of 2) Shingles vaccine (1 of 2) [facility] Start: 2001 Screening for malign ant neoplasm of colon [facility] Start: 1974 Glaucoma screening Diabetic retinal exam [facility] Start: 1974 Hepatitis C screening Hepatitis C sc reen [facility] Start: 1974 Urine screening for protein Diabetic Alb to Cr ratio (uACR) test [facility] Start: 1968 Depression Screen Depression Screen [facility] Start: 1966 Diabetic foot examination Diabetic foot exam [facility] Start: 1966 Hemoglobin A1c measurement A1C test (Diabetic or Prediabetic) [facility] Start: 1956 Screening for malign ant neoplasm of colon [facility] Healthcare Bacteria identified in Blood by Culture Blood Culture [facility] Blood culture for bacteria, including anaerobic screen Blood Culture [facility] End: 11-10-2023 Culture, Urine [facility] [email or web address] [facility] Work Phone: Comment on above: Once for 1 Occurrenc es starting 11/10/2023 until 11/10/2023 Patient referral [facility] Work Phone: [facility] Immunizations Immunization Date Immunization Notes Care Provider Velma whitlock 06-23-2021 influenza virus vacc ine, unspecified formulation Vianey Zaldivar MD Work Phone: [facility] Healthcare Payers Date Payer Category Payer Medicare MEDICARE [id number] 2011 [facility] er [id number] 2009 Unknown [id number] 1959 Medicare [id number] 1959 Unknown [id number] 1956 Unknown [id number] [id number] 9.2.593 1956 Unknown [id number] 2.16840.1.468479.3.57 9.2.593 1956 Unknown [id number] 2.16840.1.774584.3.57 9.2.593 1956 Unknown [id number] 2.16.840.1.934313.3.57 9.2.593 1956 Unknown [id number] 2.16.840.1.064339.3.57 9.2.593 1956 Unknown [id number] 2.16.840.1.801517.3.57 9.2.593 1956 Unknown [id number] 2.16.840.1.893674.3.57 9.2.593 1956 Unknown [id number] 2.16.840.1.347337.3.57 9.2.593 1956 Unknown [id number] 2.16.840.1.959866.3.57 9.2.593 1956 Unknown [id number] 2.16.840.1.655652.3.57 9.2.593 1956 Unknown [id number] 2.16.840.1.388130.3.57 9.2.356 1956 Unknown [id number] 2.16.840.1.193706.3.57 9.2.356 1956 Unknown [id number] 2.16.840.1.721670.3.57 9.2.356 1956 Unknown [id number] 2.16.840.1.050814.3.57 9.2.356 1956 Unknown [id number] 2.16.840.1.558381.3.57 9.2.356 1956 Unknown [id number] 2.16.840.1.576463.3.57 9.2.356 1956 Unknown [id number] 2.16.840.1.700429.3.57 9.2.173 1956 Unknown [id number] 2.16.840.1.896530.3.57 9.2.1286 1956 Unknown [id number] 2.16.840.1.160917.3.57 9.2.1286 1956 Unknown [id number] 2.16.840.1.323639.3.57 9.2.1286 1956 Unknown [id number] 2.16.840.1.683063.3.57 9.2.1286 Self-pay Unknown [facility] [employer] [id number] Social History Date Type Detail Facility Start: 07-17-2022 End: 07-18-2022 Tobacco smoking status NHIS Smoker (finding) [facility] Start: 1955 Sex Assigned At Male [facility] Start: 04-25-2023 Sex Assigned At [facility] [employer] Other Start: 12-26-2016 Tobacco smoking status OKIS Smokes tobacco daily [employer] History of tobacco use Cigarette Smoker B [facility] Start: 12-26-2016 End: 04-25-2023 Cigarettes smoked current (pack per day) - Reported 1.5 [employer] Start: 12-26-2016 Tobacco use and exposure Smokeless tobacco non-user [employer] Start: 04-25-2023 Alcohol intake Current non-drinker of alcohol (finding) [employer] Start: 1955 Sex Assigned At Not on file [facility] [facility] smoking consumption unknown [facility] Start: 09-12-2024 Sex Male (finding) [facility] Medical Equipment Procedure Code Equipment Code Equipment Origin al Text Equipment Identifier Dates [id number] Start: 12-24-2018 End: 04-11-2019 Glucose test strips Start : 12-24-2018 End: 04-10-2019 Glucose test strips Start : 12-24-2018 End: 04-10-2019 Glucose test strips Start : 12-24-2018 End: 04-10-2019 Glucose test strips Start : 12-24-2018 End: 04-10-2019 Goals Date Patient Goal Desired Activity /State Functional Status Date Assessment Result Facility 07-20-2022 Functional status Patient at Baseline [facility] Work Phone: Mental Status Date Assessment Result Facility 07-20-2022 Cognitive function Cognitive Sta tus Patient at Baseline [facility] Work Phone: Clinical Notes 2018 to 06-25-2024 Telephone Encounter - Susan Uriostegui NP - 06/25/2024 5:07 PM EDTTelephone Encounter - Susan Uriostegui NP - 06/25/2024 5:07 PM EDT Note Date & Type Note Facility 06-25-2024 Telephone encount er Note Rx for losartan is sent. [facility] 06-25-2024 Miscellaneous Notes Formattin g of this note might be different from the original. Rx for losartan is sent. documented in this encounter [facility] 03-26-2024 Note [facility] Cardiology Clinic Note Chief Complaint: New patient here to establish care. Ref from Dr. Reynolds for abnormal stress test. 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 Stress test was ordered for [...] Coronary artery disease, PVD (peripheral vascular disease) ([facility]), and Stroke ([facility]). Surgical History He has a [...] Left (more content not included)... [facility] 02-25-2024 Note Patient: Taylor briceño Procedure Information Date/Time: 02/25/24 1030 Procedure: Coronary angiography (Left) - andrea Location: [facility] CRITICAL CARE TECHNICIAN 3 / [facility] (Cath) Providers: Festus Castillo [...] blood products. Additional Equipment Requests [facility] 02-17-2024 Note [facility] Cardiology Clinic Note Chief Complaint: New patient here to establish care. Ref from Dr. Reynolds for abnormal stress test. 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 Stress test was ordered for [...] catheterization. I will not be in the [place] [place] for the next 3 to 4 weeks; [...] moder (more content not included)... [facility] 11-05-2022 Evaluation note Encounter Date [...] (ICD-10 - G89.29) Follow up after procedure. [facility] Other 02-09-2023 Evaluation note* Encounter Date Diagnosis [...] cant remember who the surgeon was in [place]. He presents with his today, both the [...] negative findings were considered in medical decision-making. [facility] Other 11-11-2022 Discharge summary Author Sang Bauer [facility] [place] July 20, 2022 6:39pm Note Date/Time July 20, 2022 3:04pm [facility] [address] [place] [address] Discharge Summary Signed Patient: Taylor Mcclellan SR MR#: [id number] : 1955 Acct:[id number] Age/Sex: 66 / M Adm Date: 2 Loc: Room: [address] [place] [address]: Sang Bauer MD Copies to: [...] tablet 75 mg PO DAILY Discontinued hydrocodone-acetaminophen [[place]] 5-325 mg tablet 1 tab PO BID PRN (Reason: Pain) Qty: 0 0RF Other Ambulatory Orders: DME Home Medical Equipment (Routine) Timeframe: 20220720 Location: Determined by Patient Ordered By: Sang Bauer Follow Up: Lilia Hopper APRN [Nurse Practitioner] - 08/22/22 10:30 am Documented By: Sang Bauer MD 07/20/22 1503 Signed By: <Electronically signed by Sang Bauer MD> 07/20/22 9141 [facility] Work Phone: 1(308) 693-538311-11-2022 Progress note Author Itzel Adams [facility] [place] July 20, 2022 8:06am Note Date/Time July 20, 2022 8:06am [facility] [address] [place] [address] Cardiology Progress Note Signed Patient: Taylor Mcclellan MR#: [id number] : 1955 Acct:[id number] Age/Sex: 66 / M Adm Date: 2 Loc: Room: [address] [place] [address] Type: ADM INOo Attending Dr: Sang Bauer [...] it is a single-vessel bypass done in [place] record is not available patient and his cannot remember which hospital he had his surgery at. He does not follow with cardiology Qualifiers: Coronary Disease-Associated Artery/Lesion type: cheesh-na artery [place] vs. transplanted heart: cheesh-na heart Associated angina: without angina Qualified Code(s): I25.10 - Atherosclerotic heart disease of cheesh-na coronary artery without angina pectoris Code(s): I25.10 - Atherosclerotic heart disease of cheesh-na coronary artery without angina pectoris Status: Acute [...] 3. Stress test negative for ischemia or [place]. Patient can be discharged home cardiac chew Documented By: Itzel Adams MD 07/20/22804 Signed By: <Electronically signed by MD Itzel Adams> 07/20/22805 [facility] Work Phone: 1(960) 105-220911-10-2022 Progress note Author Sang Bauer [facility] [place] July 19, 2022 4:57pm Note Date/Time July 19, 2022 4:57pm [facility] [address] [place] [address] Hospitalist Progress Note Signed Patient: Taylor Mcclellan MR#: [id number] : 1955 Acct:[id number] Age/Sex: 66 / M Adm Date: 2 Loc: Room: [address] [place] [address] Type: ADM INOo Attending Dr: Sang Bauer [...] Tablet.Dr PO 07/18/23 11:59 500 mg BID AIMSHA Administration Enoxaparin Sodium 40 mg 07/18/22 10:00 [...] SUBCUT 07/17/23 21:59 Not Given TID.WM.[facility] Protocol Lamotrigine 100 mg 07/18/22 12:00 [...] <Electronically signed by Sang Bauer MD> 07/19/221656 [facility] Work Phone: 1(715) 165-874311-10-2022 Progress note Author Itzel Adams [facility] [place] July 19, 2022 8:35am Note Date/Time July 19, 2022 8:35am [facility] [address] [place] [address] Cardiology Progress Note Signed Patient: Taylor Mcclellan MR#: [id number] : 1955 Acct:[id number] Age/Sex: 66 / M Adm Date: 2 Loc: Room: [address] [place] [address] Type: ADM INOo Attending Dr: Sang Bauer [...] it is a single-vessel bypass done in [place] record is not available patient and his cannot remember which hospital he had his surgery at. He does not follow with cardiology Qualifiers: Coronary Disease-Associated Artery/Lesion type: cheesh-na artery [place] vs. transplanted heart: cheesh-na heart Associated angina: without angina Qualified Code(s): I25.10 - Atherosclerotic heart disease of cheesh-na coronary artery without angina pectoris Code(s): I25.10 - Atherosclerotic heart disease of cheesh-na coronary artery without angina pectoris Status: Acute [...] <Electronically signed by MD Itzel Adams> 07/19/2235 [facility] Work Phone: 1(814) 972-701911-09-2022 Progress note Author Sang Bauer [facility] [place] July 18, 2022 3:24pm Note Date/Time July 18, 2022 3 :24pm [facility] [address] [place] [address] Hospitalist Progress Note Signed Patient: Taylor Mcclellan SR MR#: [id number] : 1955 Acct:[id number] Age/Sex: 66 / M Adm Date: 2 Loc: Room: [address] [place] [address] Type: ADM INOo Attending Dr: Sang Bauer [...] SUBCUT 07/17/23 21:59 Not Given TID.WM[facility] Protocol Lamotrigine 100 mg 07/18/22 12:00 [...] <Electronically signed by Sang Bauer MD> 07/18/22 9405 [facility] Work Phone: 1(961) 367-900711-09-2022 History and physical note Author Sang Bauer [facility] [place] July 18, 2022 3:22pm Note Date/Time July 17, 2022 6 :41pm [facility] [address] [place] [address] Hospitalist H&P Signed Patient: Taylor Mcclellan SR MR#: [id number] : 1955 Acct:[id number] Age/Sex: 66 / M Adm Date: 2 Loc: Room: [address] [place] [address] Type: ADM INOo Attending Dr: Sang Bauer [...] at home. Reportedly patient was taken to [facility] couple days ago when he [...] his live in a mobile home in [place]. Meds Medications and Allergies Allergies chlordiazepoxide [From [...] 07/17/22] hydrocodone 5 mg-acetaminophen 325 mg tablet ([place]) 1 tab PO BID PRN Pain #0 [...] % (Auto) 29.5 % (.) 07/17/22 15:44 Grady % (Auto) 5.4 % (.) 07/17/22 15:44 Eos % (Auto) 0.7 % (.) 07/17/22 15:44 Baso % (Auto) 1.0 % (.) 07/17/22 15:44 Neut # (Auto) 4.9 x10E3/uL (1.8-7.7) 07/17/22 15:44 Lymph # (Auto) 2.3 x10E3/uL (1.00-4.8) 07/17/22 15:44 Grady # (Auto) 0.4 x10E3/uL (0.0-0.8) 07/17/22 15:44 [...] signed by Sang Bauer MD> 07/18/22 1523 [facility] Work Phone: 1(146) 580-819211-09-2022 Consult note Author Itzel Adams [facility] [place] July 18, 2022 11:46am Note Date/Time July 18, 2022 1 1:43am [facility] [address] [place] [address] Cardiology Consult Note Signed Patient: Taylor Mcclellan MR#: [id number] : 1955 Acct:[id number] Age/Sex: 66 / M Adm Date: 2 Loc: Room: [address] [place] [address] Type: ADM INOo Attending Dr: Sang Bauer MD Copies to: MD Genesis Goetz MD Mourhaf A Traboulssi, MD~ Cardiology HPI History of Present Illness Consult Date: 07/18/22 Reason for Consult: Chest pain HPI: Mr. Mcclellan is a 66 year old male with known history of coronary artery disease and prior bypass surgery done in [place]. No records available. Patient report to have [...] his live in a mobile home in [place]. Meds Medications and Allergies Allergies chlordiazepoxide [From [...] 07/17/22] hydrocodone 5 mg-acetaminophen 325 mg tablet ([place]) 1 tab PO BID PRN Pain #0 [...] x10E3/uL Lymph # (Auto) 2.3 (1.00-4.8) x10E3/uL Grady # (Auto) 0.4 (0.0-0.8) x10E3/uL Eos # [...] @ 100 mls/hr IV ONCE ONE Rx #:[id number] Oral 0 / 0 50 / 50 [...] it is a single-vessel bypass done in [place] record is not available patient and his cannot remember which hospital he had his surgery at. He does not follow with cardiology Qualifiers: Coronary Disease-Associated Artery/Lesion type: cheesh-na artery [place] vs. transplanted heart: cheesh-na heart Associated angina: without angina Qualified Code(s): I25.10 - Atherosclerotic heart disease of cheesh-na coronary artery without angina pectoris Code(s): I25.10 - Atherosclerotic heart disease of cheesh-na coronary artery without angina pectoris (3) Hx [...] signed by MD Itzel Adams> 07/18/22 1146 [facility] Work Phone: 1(758) 324-430911-08-2022 History and physical note Author Sang Bauer [facility] [place] July 18, 2022 3:22pm Note Date/Time July 17, 2022 6 :41pm [facility] [address] [place] [address] Hospitalist H&P Signed Patient: Taylor Mcclellan SR MR#: [id number] : 1955 Acct:[id number] Age/Sex: 66 / M Adm Date: 2 Loc: 3T Room: [address] [place] [address] Type: ADM INOo Attending Dr: Sang Bauer [...] at home. Reportedly patient was taken to [facility] couple days ago when he [...] his live in a mobile home in [place]. Meds Medications and Allergies Allergies chlordiazepoxide [From [...] 07/17/22] hydrocodone 5 mg-acetaminophen 325 mg tablet ([place]) 1 tab PO BID PRN Pain #0 [...] % (Auto) 29.5 % (.) 07/17/22 15:44 Grady % (Auto) 5.4 % (.) 07/17/22 15:44 Eos % (Auto) 0.7 % (.) 07/17/22 15:44 Baso % (Auto) 1.0 % (.) 07/17/22 15:44 Neut # (Auto) 4.9 x10E3/uL (1.8-7.7) 07/17/22 15:44 Lymph # (Auto) 2.3 x10E3/uL (1.00-4.8) 07/17/22 15:44 Grady # (Auto) 0.4 x10E3/uL (0.0-0.8) 07/17/22 15:44 [...] signed by Sang Bauer MD> 07/18/22 1524 [facility] Work Phone: [phone] 363-270601-07-2019 Consult note Author Itzel Adams [facility] [place] July 18, 2022 11:46am Note Date/Time July 18, 2022 1 1:43am [facility] [address] [place] [address] Cardiology Consult Note Signed Patient: Taylor Mcclellan SR MR#: [id number] : 1955 Acct:[id number] Age/Sex: 66 / M Adm Date: 2 Loc: Room: [address] [place] [address] Type: ADM INOo Attending Dr: Sang Bauer MD Copies to: MD Genesis Goetz MD Mourhaf A Traboulssi, MD~ Cardiology HPI History of Present Illness Consult Date: 07/18/22 Reason for Consult: Chest pain HPI: Mr. Mcclellan is a 66 year old male with known history of coronary artery disease and prior bypass surgery done in [place]. No records available. Patient report to have [...] his live in a mobile home in [place]. Meds Medications and Allergies Allergies chlordiazepoxide [From [...] 07/17/22] hydrocodone 5 mg-acetaminophen 325 mg tablet ([place]) 1 tab PO BID PRN Pain #0 [...] x10E3/uL Lymph # (Auto) 2.3 (1.00-4.8) x10E3/uL [place]ady # (Auto) 0.4 (0.0-0.8) x10E3/uL Eos # [...] @ 100 mls/hr IV ONCE ONE Rx #:[id number] Oral 0 / 0 50 / 50 [...] it is a single-vessel bypass done in [place] record is not available patient and his cannot remember which hospital he had his surgery at. He does not follow with cardiology Qualifiers: Coronary Disease-Associated Artery/Lesion type: cheesh-na artery [place] vs. transplanted heart: cheesh-na heart Associated angina: without angina Qualified Code(s): I25.10 - Atherosclerotic heart disease of cheesh-na coronary artery without angina pectoris Code(s): I25.10 - Atherosclerotic heart disease of cheesh-na coronary artery without angina pectoris (3) Hx [...] MD Itzel Adams> 07/18/22 1146 [facility] Work Phone: Discharge summary Author Sang [facility] July 20, 2022 6:39pm Note Date/Time July 20, 2022 3:04pm [facility] [address] [place] [address] Discharge Summary Signed Patient: Taylor Mcclellan MR#: [id number] : 1955 Acct:[id number] Age/Sex: 66 / M Adm Date: 2 Loc: 3T Room: [address] [place] [address]: Sang Bauer MD Copies to: MD Genesis Goetz MD~ Providers Date of Discharge: 07/20/22 Discharging Provider: Sang aBuer Primary Care Provider: Genesis Reynolds Consults: 07/17/22 [...] tablet 75 mg PO DAILY Discontinued hydrocodone-acetaminophen [[place]] 5-325 mg tablet 1 tab PO BID PRN (Reason: Pain) Qty: 0 0RF Other Ambulatory Orders: DME Home Medical Equipment (Routine) Timeframe: 20220720 Location: Determined by Patient Ordered By: Sang Bauer Follow Up: Lilia Hopper APRN [Nurse Practitioner] - 08/22/22 10:30 am Documented By: Sang Bauer MD 07/20/22 1500 Signed By: <Electronically signed by Sang Bauer MD> 07/20/22 2808 [facility] Work Phone: evaluation note* Diagnosis Onset Date Resolution Status Chest pain acute Coronary artery disease acut e Generalized weakness acute Hx of CABG acute Diabetes mellitus chronic HTN (hypertension) chronic [facility] Work Phone: Evaluation note* Diagnosis Onset Date Resolution Status Bipolar 1 disorder, depressed, severe acute Chest pain acute Coronary artery disease acut e Generalized weakness acute Hx of CABG acute Chronic back pain chronic Diabetes mellitus chronic HTN (hypertension) chronic [facility] Work Phone: Evoouorgis noteNo assessment information available [facility] Work Phone: evaluation noteNo InformationNort Set.fm Other Evaluation note* Diagnosis Primary hypertension (CMS/HCC)- [...] Surgical History CABG Hospitalization History see above [facility] Other Hospital Discharge instructions Additional Instructions SNF TO MANAGE: PT/OT to eval and treat Monitor VS per protocol--HTN Monitor FSBS Maintain high risk fall precautions Care [facility] be [facility] Work Phone: Progress note Author Sang Bauer [facility] [place] July 18, 2022 3:24pm Note Date/Time July 18, 2022 3 :24pm [facility] [address] [place] [address] Hospitalist Progress Note Signed Patient: Taylor Mcclellan SR MR#: [id number] : 1955 Acct:[id number] Age/Sex: 66 / M Adm Date: 2 Loc: Room: [address] [place] [address] Type: ADM INOo Attending Dr: Sang Bauer [...] 25 Mg Tablet PO 07/18/23 13:59 TID [facility] Insulin Aspart 0 units 07/17/22 22:00 07/18/22 11:48 Insulin Aspart 300 Units/3 Ml Insuln.Pen SUBCUT 07/17/23 21:59 Not Given TID.WM[facility] Protocol Lamotrigine 100 mg 07/18/22 12:00 [...] <Electronically signed by Sang Bauer MD> 07/18/22 1527 [facility] Work Phone: Progress note Author Itzel Adams [facility] [place] July 19, 2022 8:35am Note Date/Time July 19, 2022 8:35am [facility] [address] [place] [address] Cardiology Progress Note Signed Patient: Taylor Mcclellan SR MR#: [id number] : 1955 Acct:[id number] Age/Sex: 66 / M Adm Date: 2 Loc: Room: [address] [place] [address] Type: ADM INOo Attending Dr: Sang Bauer [...] it is a single-vessel bypass done in [place] record is not available patient and his cannot remember which hospital he had his surgery at. He does not follow with cardiology Qualifiers: Coronary Disease-Associated Artery/Lesion type: cheesh-na artery [place] vs. transplanted heart: cheesh-na heart Associated angina: without angina Qualified Code(s): I25.10 - Atherosclerotic heart disease of cheesh-na coronary artery without angina pectoris Code(s): I25.10 - Atherosclerotic heart disease of cheesh-na coronary artery without angina pectoris Status: Acute [...] by MD Itzel Adams> 07/19/22834 [facility] Work Phone: Progress note Author Sang Bauer [facility] [place] July 19, 2022 4:57pm Note Date/Time July 19, 2022 4:57pm [facility] [address] [place] [address] Hospitalist Progress Note Signed Patient: Taylor Mcclellan MR#: [id number] : 1955 Acct:[id number] Age/Sex: 66 / M Adm Date: 2 Loc: 3T Room: [address] [place] [address] Type: ADM INOo Attending Dr: Sang Bauer [...] Tablet.Dr PO 07/18/23 11:59 500 mg BID AIMSHA Administration Enoxaparin Sodium 40 mg 07/18/22 10:00 [...] SUBCUT 07/17/23 21:59 Not Given TID.WM[facility] Protocol Lamotrigine 100 mg 07/18/22 12:00 [...] <Electronically signed by Sang Bauer MD> 07/19/221656 [facility] Work Phone: Progress note Author Itzel Adams [facility] [place] July 20, 2022 8:06am Note Date/Time July 20, 2022 8:06am [facility] [address] [place] [address] Cardiology Progress Note Signed Patient: Taylor Mcclellan MR#: [id number] : 1955 Acct:[id number] Age/Sex: 66 / M Adm Date: 2 Loc: Room: [address] [place] [address] Type: ADM INOo Attending Dr: Sang Bauer [...] it is a single-vessel bypass done in [place] record is not available patient and his cannot remember which hospital he had his surgery at. He does not follow with cardiology Qualifiers: Coronary Disease-Associated Artery/Lesion type: cheesh-na artery [place] vs. transplanted heart: cheesh-na heart Associated angina: without angina Qualified Code(s): I25.10 - Atherosclerotic heart disease of cheesh-na coronary artery without angina pectoris Code(s): I25.10 - Atherosclerotic heart disease of cheesh-na coronary artery without angina pectoris Status: Acute [...] 3. Stress test negative for ischemia or [place]. Patient can be discharged home cardiac chew Documented By: Itzel Adams MD 07/20/22804 Signed By: <Electronically signed by MD Itzel Adams> 07/20/22805 [facility] Work Phone: Summary Purpose Family History [...] section and content) DATE CREATED AUTHOR 10/15/2019 [facility] DATE CREATED AUTHOR AUTHOR'S ORGANIZ ATION 11/29/2021 [facility] DATE CREATED AUTHOR AUTHOR'S ORGANIZ ATION 01/21/2023 [facility] DATE CREATED AUTHOR AUTHOR'S ORGANIZ ATION 01/23/2023 [facility] DATE CREATED AUTHOR AUTHOR'S ORGANIZ ATION 11/11/2023 [facility] DATE CREATED AUTHOR AUTHOR'S ORGANIZ ATION 03/30/2024 [facility] DATE CREATED AUTHOR AUTHOR'S ORGANIZ ATION 05/06/2024 [facility] DATE CREATED AUTHOR AUTHOR'S ORGANIZ ATION 09/19/[address] [facility] Care Teams (unrecognized sec [...] MD Other Provider Active Pily Winslow , [facility]- Other Provider Active Adelaide Leonardo MD [...] Active Benson Lane MD Attending Provider Active Lead Clinical Research Coordinator Relationship Specialty Start Date End Date Bro Sanford MD PCP - General Family Medicine 12/26/16 Lead Clinical Research Coordinator Relationship Specialty Start Date End Date Ebeneezr Hopkins MD [address] [place] [address] PCP - General Psychiatry 04/26/23 Team Status: Inactive Member Role Status Dates Genesis Reynolds MD Attending Provider Active Sta rt: September 09, 2024 End: September 09, 2024 Lead Clinical Research Coordinator Relationship Specialty Start Date End Date Ebenezer Hopkins MD [address] [facility] [address] [place] [address] PCP - General Psychiatry 04/26/23 Goals (unrecognized [...] BE BASED ON THE PRIMARY CLINICAL RECORDS. [employer] [facility]. provides no warranty or guarantee of the accuracy or completeness of information in this document.
[2024-09-29] MEDS: AZITHROMYCIN 500 MG in 0.9 % SODIUM CHLORIDE 250 ML 250 MG IV (02:19)
[2024-09-29] MEDS: ACETAMINOPHEN 1,000 MG/100 ML PREMIX 400 MG IV (02:48)
[2024-09-29] MEDS: IPRATROPIUM/ALBUTEROL SULFATE 3 ML AMPUL.NEB IH ×4 (05:17→22:45)
[2024-09-29 05:43] LABS: Basophils Percent Auto 0.7 % (0.2-2.0); Hematocrit 34.4 % (42.0-54.0); Hemoglobin 11.4 g/dL (14.0-18.0); Immature Granulocytes Abs Auto 0.02 10^3/uL (0.00-0.03); Immature Granulocytes Pct Auto 0.5 % (0.0-0.5); Lymphocytes Absolute Auto 0.7 10^3/uL (1.2-3.8); Mean Corpuscular HGB Conc 33.1 g/dL (29.9-35.2); Mean Corpuscular Hemoglobin 30.2 pg (25.9-34.0); Mean Platelet Volume 12.3 fL (9.5-13.5); Monocytes Absolute Auto 0.7 10^3/uL (0.3-0.8); Neutrophils Absolute Auto 2.7 10^3/uL (1.4-6.5); Neutrophils Percent Auto 64.8 % (43.0-75.0); Platelet Count 171 10^3/uL (150-450); Red Blood Count 3.78 10^6/uL (4.70-6.10); Red Cell Distribution Width 13.5 % (11.0-15.0); White Blood Count 4.2 10^3/uL (4.0-11.0)
[2024-09-29 05:48] LABS: PCO2 VBG 32.6 mmHg (40.0-52.0); pH VBG 7.449 (7.330-7.430)
[2024-09-29 06:00] LABS: Alanine Aminotransferase 16 U/L (16-63); Albumin Globulin Ratio 0.6; Albumin Level 2.4 g/dL (3.4-5.0); Alkaline Phosphatase 36 U/L (46-116); Anion Gap 15.9; Aspartate Amino Transferase 32 U/L (15-37); BUN Creatinine Ratio 19.9; Bilirubin Total 0.6 mg/dL (0.2-1.0); Calcium 8.1 mg/dL (8.5-10.1); Carbon Dioxide 23.9 mmol/L (21.0-32.0); Chloride 108 mmol/L (98-107); Estimated GFR (African America 39 (>=60 mL/min/1.73m^2); Estimated GFR (Non-African Ame 32 (>=60 mL/min/1.73m^2); Globulin 4.2 g/dL; Glucose 135 mg/dL (74-106); Magnesium 1.5 mg/dL (1.8-2.4); Potassium 3.8 mmol/L (3.5-5.1); Sodium 144 mmol/L (136-145); Total Protein 6.6 g/dL (6.4-8.2)
--- OUTSIDE RECORDS SUMMARY | 2024-09-29 06:08 | XMS_ITS | CCD ---
Author Organization [facility] ion [facility] Care Team Providers Care Figure Refinisher And Repairer Name Role Phone Bro Sanford Primary Care Physician Unavailab Lior Dow Attending Physician Unavailable MD Genesis Reynolds Primary Care Provider [phone] MD Segundo Huston Emergency Provider MD [...] Provider MD Genesis Reynolds Primary Care Provider [phone] Attending Provider [...] [place] Primary Care Unavailable CLAUDE ., DR AGRCIA Attending Unavailable HAY ., DR GARCIA Admitting [...] Care Provider UnavailGenesis Horne MD Attending Provider Genesis Reynolds Attending Unavailable Hoy, Genesis M Admitting Unavailable Allergies Allergy Classification Reported Allergen(s) Allergy Type Date of Onset Reaction(s) Facility (7 sources) Amitriptyline; Translations: [Amitriptyline] Drug Allergy 05-18-[address] [facility] (12 sources) atorvastatin; Translations: [atorvastatin] Drug Allergy 01-24-20 19 Unknown Reaction, Unknown [facility] (6 sources) chlordiazePOXIDE Drug Allergy 01-24-[address] [facility] (6 sources) clidinium Drug Allergy 01-24-[address] [facility] (16 sources) fentaNYL; Translations: [Fentanyl] Drug Allergy 12-27-19 17 Unknown Reaction, Unknown [facility] (9 sources) venlafaxine; Translations: [VENLAFAXINE] Drug Allergy 05-13-20 14 Other (See Comments) [facility] (4 sources) Citalopram; Translations: [Citalopram] Drug Allergy 01-11-[address] [facility] (4 sources) Simvastatin Drug Allergy 07-17-[address] [facility] (7 sources) Succinylcholine; Translations: [Succinylcholine] Drug Allergy 09-08-[address] [facility] (7 sources) Amitriptyline; Translations: [Elavil] Drug Allergy 04-20-20 14 Unknown [facility] (7 sources) chlordiazePOXIDE / clidinium Drug Allergy 11-05-[address] [facility] (7 sources) venlafaxine; Translations: [Effexor] Drug Allergy 04-06-20 14 Unknown [facility] (1 source) buPROPion Drug Allergy [facility] (1 source) Citalopram Drug Allergy 12-31-19 20 [facility] (1 source) mirabegron Drug Allergy [facility] (1 source) Simvastatin Drug Allergy [facility] (1 source) tiZANidine Drug Allergy [facility] (1 source) Amitriptyline Drug Allergy 05-18-20 14 [facility] (1 source) metFORMIN; Translations: [METFORMIN] [...] 11, 2018 11:00pm December 23, 2018 4:29pm [id number] 200 actuat albuterol 0.09 mg/actuat metered dose [...] daily as needed for pain Hydrocodone-Aceta minophen ([place]) 5-325 mg tablet Discontinued 1 TAB PO [...] Coronary arteriosclerosis; Translations: [Atherosclerotic heart disease of [place] coronary artery without angina pectoris] Onset: 11-25-2014 [...] 12-26-2016 Chronic Other aftercare (1 source) Other residential (current) drug therapy; Translations: [OTH JAIL CURRENT DRUG THERAPY] Onset: 01-21-2023 Episodic Other aftercare (1 source) 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 antithrombotics/antip latelets; Translations: [SALES AGENT BUSINESS SERVICES 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/ANTIPLAT LETS] Onset: 12-20-2022 Episodic Other circulatory [...] Onset: 08-08-2022 Episodic Other aftercare (1 source) 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; Translations: [JAIL CURRENT USE OF ASPIRIN] Onset: 07-20-2022 Episodic [...] [Ratio] 13.6 % 11.0 - 15.0 % [facility] Hematocrit (Bld) [Volume fraction] 41.6 % Low 42.0 - 54.0 % [facility] Hemoglobin (Bld) [Mass/Vol] 13.7 g/dL Low 14.0 - 18.0 g/dL [facility] Interpretation and review of laboratory results Abnormal [facility] MCH (RBC) [Entitic mass] 30.6 pg 25.9 - 34.0 pg [facility] MCHC (RBC) [Mass/Vol] 32.9 g/dL 29.9 - 35.2 g/dL [facility] MCV (RBC) [Entitic vol] 93.1 fL 80.0 - 94.0 fL [facility] Platelet mean volume (Bld) [Entitic vol] 12.3 fL 9.5 - 13.5 fL [facility] TBH PLT 207 [facility] TB RBC 4.47 Low [facility] TB WBC 5.8 [facility] Blood Cultureon 09-09-2024 Bacteria identified Cx [facility] (Bld) Gram Stain Gram Positive Cocci [...] RESISTANT TO ALL B-LACTAM DRUGS. PERFORMED BY: [place] [address] PATHOLOGIST SALAD COUNTER ATTENDANT MARC VELEZ M.D. [facility] Comment on above: Performed By: #### C UBLD #### [address] Office Visiton 03-26-2024 Follow-up visit [id number] Chacho Mcclellan ph J 1955 [facility] Department [place] [facility]20[facility] Family History Problem Relation Age of Onset No Known Problems Mother No Known Problems Father Family Status - Relation Status Age at Mother Father Level of Service:02396 MS OFFICE/OUTPATIENT ESTABLISHED MOD MDM 30 MIN [facility] HPon 02-25-2024 H&P reviewed. The caroline hayes was examined and there are no changes to the H&P. [facility] NURSNOTEon 02-25-2024 [place] RN educated pt on d/ c instructions. RN encouraged pt to voice any questions or concerns. Pt verbalizes no questions or concerns at this time. Pt was wheeled off of unit with all of belongings. [facility] Orders Onlyon 02-20-2024 Orders Only [id number] Chacho Mcclellan ph J 1955 M Date Provider Department Center 02/20/2024 ReggieGoMeganBETHANIEZANDRA [facility] VASC LAB HI HeartVAS Family History Problem Relation Age of Onset No Known Problems Mother No Known Problems Father Family Status - Relation Status Age at Mother Father Normal [facility] HPon 02-17-2024 [facility] Cardiology Clinic Note Chief Complaint: New patient here to establish care. Ref from Dr. Reynolds for abnormal stress test. 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 Stress test was [...] catheterization. 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 Normal [facility] Office Visiton 02-17-2024 Follow-up visit [id number] Chacho Mcclellan ph J 1955 M Date Provider Department Center 02/17/2024 Getachew-MITZY TOVAR NASRIN Mccarty Family History Problem Relation Age of Onset No Known Problems Mother No Known Problems Father Family Status - Relation Status Age at Mother Father Level of Service:49356 MS OFFICE/OUTPATIENT NEW HIGH MDM 60 MINUTES Normal [facility] Orders Onlyon 02-17-2024 Orders Only [id number] Chacho Mcclellan ph J 1955 M Provider Department Center 02/17/2024 DIRK JARA CARD [facility] Family History Problem Relation Age of Onset No Known Problems Mother No Known Problems Father Family Status - Relation Status Age at Mother Father Normal [facility] Urinalysis w/ Microon 2023 Bacteria TRACE Abnormal NONE [facility] Comment on above: Performed By: #### U AMIC #### [facility] [address] [place] [address] [place] [address] Health And Safety Representative: Sarai Howell MD Bilirubin, SemiQt,Ur Negative Normal NEG [facility] Comment on above: Performed By: #### U AMIC #### [facility] [address] [place] [address] [place] [address] Health And Safety Representative: Sarai Howell MD Blood, Urine Negative Normal NEG [facility] Comment on above: Performed By: #### U AMIC #### [facility] [address] [place] [address] [place] [address] Health And Safety Representative: Sarai Howell MD Clarity (U) Clear Normal CLEAR [facility] Comment on above: Performed By: #### U AMIC #### [facility] [address] [place] [address] [place] [address] Health And Safety Representative: Sarai Howell MD Color (U) Yellow Normal YEL [facility] Comment on above: Performed By: #### U AMIC #### [facility] [address] [place], [place] [id number] Health And Safety Representative: Sarai Howell MD Epithelial cells LM Ql (Urine sed) 0 TO 2 Normal 0-5 [facility] Comment on above: Performed By: #### U AMIC #### [facility] [address] [place], [place] [id number] Health And Safety Representative: Sarai Howell MD Glucose Ql (U) Negative Normal NEG [facility] Comment on above: Performed By: #### U AMIC #### [facility] [address] [place] [address] [place], [place] [id number] Health And Safety Representative: Sarai Howell MD Ketones Ql (U) Negative Normal NEG [facility] Comment on above: Performed By: #### U AMIC #### [facility] [address] [place] [address] [place] [place], [place] [id number] Health And Safety Representative: Sarai Howell MD Leukocyte esterase Test strip Ql (U) Negative Normal NEG [facility] Comment on above: Performed By: #### U AMIC #### [facility] [address] [place] [address] [place], [place] [id number] Health And Safety Representative: Sarai Howell MD Mucus Strands TRACE Abnormal NONE [facility] Comment on above: Performed By: #### U AMIC #### [facility] [address] [place] [address] Dr[place], [place] [id number] Health And Safety Representative: Sarai Howell MD Nitrite,Ur Negative Normal NEG [facility] Comment on above: Performed By: #### U AMIC #### [facility] [address] [place], [place] [id number] Health And Safety Representative: Sarai Howell MD PH,Ur 7.0 Normal 5.0-9.0 [facility] Comment on above: Performed By: #### U AMIC #### [facility] [address] [place], [place] [id number] Health And Safety Representative: Sarai Howell MD Protein Ql (U) Negative Normal NEG [facility] Comment on above: Performed By: #### U AMIC #### [facility] [address] [place] [address] [place] [place], [place] [id number] Health And Safety Representative: Sarai Howell MD Spec. [place],Ur 1.015 Normal 1.010-1.02 0 [facility] Comment on above: Performed By: #### U AMIC #### [address] [place], [place] [id number] Health And Safety Representative: Sarai Howell MD Urine RBC's 0 TO 2 Normal 0-2 [facility] Comment on above: Performed By: #### U AMIC #### [address] [place], [facility]83 Health And Safety Representative: Sarai Howell MD Urine WBC's 2 TO 5 Normal 0-5 [facility] Comment on above: Performed By: #### U AMIC #### [address] [place], [place] [id number] Health And Safety Representative: Sarai Howell MD Urobilinogen,Ur Normal Normal 0.0-1.0 [facility] Comment on above: Performed By: #### U AMIC #### [facility] [address] [place] [address] Dr. [place], [facility]83 Health And Safety Representative: Sarai Howell MD Urinalysis with Microscopico n 11-10-2023 Bacteria LM Ql (Urine sed) TRACE Abnormal None [facility] Bilirubin Ql (U) Negative NEGATIVE [facility] Clarity (U) Clear Clear [facility] Color (U) Yellow Yellow [facility] Epithelial cells LM.HPF (Urine sed) [#/Area] 0 TO 2 [facility] Glucose Test strip (U) [Mass/Vol] Negative NEGATIVE mg/dL [facility] Hemoglobin Auto test strip Ql (U) Negative NEGATIVE [facility] Interpretation and review of laboratory results Abnormal [facility] Ketones (U) [Mass/Vol] Negative NEGAT MELISSA mg/dL [facility] Leukocyte esterase Test strip Ql (U) Negative NEGATIVE [facility] Mucus Ql (Urine sed) TRACE Abnormal None [facility] Nitrite Ql (U) Negative NEGATIVE [facility] pH (U) 7.0 [pH] 5.0 - 9.0 [facility] Protein (U) [Mass/Vol] Negative NEGAT MELISSA mg/dL [facility] RBC LM.HPF (Urine sed) [#/Area] 0 TO 2 [facility] Specific gravity (U) [Rel density] 1.015 1.010 - 1.020 [facility] Urobilinogen Qn (U) Normal 0.0 - 1. 0 EU/dL [facility] WBC LM.HPF (Urine sed) [#/Area] 2 TO 5 [facility] Cult, Bloodon 04-30-2023 Cult, Blood Specimen Description .BLOOD Special Requests lhand, 9ml, 2 bottles Culture NO GROWTH 5 DAYS Report Status FINAL 04/30/2023 [facility] Comment on above: Performed By: #### B CUL2 #### [facility] [address] [place] [address] Health And Safety Representative: Sarai Howell MD Cult,[facility] 04-30-2023 Cult,Blood Specimen Description .BLOOD Special Requests LAC, 20ML Culture NO GROWTH 5 DAYS Report Status FINAL 04/30/2023 [facility] Comment on above: Performed By: #### B C #### [facility] [address] [place] [address] Health And Safety Representative: Sarai Howell MD Lipid Profileon 04-26-2023 Cholesterol [Mass/Vol] 171 mg/dL Normal <200 [facility] Comment on above: Result Comment: Cholesterol Guidelines: <200 Desirable 200-240 Borderline >240 Undesirable Performed By: #### L IPR #### [address] [address] Health And Safety Representative: Spencer Tapia MD Cholesterol in HDL [Mass/Vol] 30 mg/dL Low >40 [facility] Comment on above: Result Comment: HDL Guidelines: <40 Undesirable 40-59 Borderline >59 Desirable Performed By: #### L IPR #### [address] [address] Health And Safety Representative: Spencer Tapia MD Cholesterol in LDL [Mass/Vol] 112 mg/dL Normal 0-130 [facility] Comment on above: Result Comment: LDL Guidelines: <100 Desirable 100-129 Near to/above Desirable 130-159 Borderline >159 Undesirable Direct (measured) LDL and calculated LDL are not interchangeable tests. Performed By: #### L IPR #### [address] [address] Health And Safety Representative: Spencer Tapia MD Cholesterol.total/Chol esterol in HDL [Mass ratio] 5.7 {ratio} High <5 [facility] Comment on above: Performed By: #### L IPR #### [address] [address] Health And Safety Representative: Spencer Tapia MD Triglyceride [Mass/Vol] 143 mg/dL Normal <150 [facility] Comment on above: Result Comment: Triglyceride Guidelines: <150 Desirable 150-199 Borderline 200-499 High >499 Very high Based on AHA Guidelines for fasting triglyceride, June 2012. Performed By: #### L IPR #### [address] [address] Health And Safety Representative: Spencer Tapia MD Basic Metabolic Profon 04-25 Anion gap [Moles/Vol] 13 mmol/L Normal - [facility] Comment on above: Performed By: #### T DANAYI, CDP, BMP #### [facility] [address] [place] [address] Health And Safety Representative: Sarai Howell MD BUN/CRE Ratio 14 Normal 9-20 [facility] Comment on above: Performed By: #### ANJALI PRADHAN, BMP #### [facility] [address] [place] [address] Health And Safety Representative: Sarai Howell MD Calcium [Mass/Vol] 9.3 mg/dL Normal 8.6-10.4 [facility] Comment on above: Performed By: #### ANJALI PRADHAN, BMP #### [facility] [address] [place] [address] Health And Safety Representative: Sarai Howell MD Chloride [Moles/Vol] 101 mmol/L Normal 98-107 [facility] Comment on above: Performed By: #### ANJALI PRADHAN, BMP #### [facility] [address] [place] [address] [place] [address] Health And Safety Representative: Sarai Howell MD CO2 [Moles/Vol] 25 mmol/L Normal 20-31 [facility] Comment on above: Performed By: #### ANJALI PRADHAN, BMP #### [address] [place] [address] Health And Safety Representative: Sarai Howell MD Creatinine [Mass/Vol] 1.3 mg/dL High 0.7-1.2 [facility] Comment on above: Performed By: #### ANJALI PRADHAN, BMP #### [facility] [address] [place] [address] Health And Safety Representative: Sarai Howell MD GFR/1.73 sq M.predicted among non-blacks MDRD (S/P/Bld) [Vol rate/Area] mL/min/{1.73_m2} Normal >60 [facility] Comment on above: Result Comment: These [...] Performed By: #### ANJALI PRADHAN, BMP #### [facility] [address] [place] [address] [place] [place], [place] [id number] Health And Safety Representative: Sarai Howell MD Glucose [Mass/Vol] 87 mg/dL Normal 70-99 [facility] Comment on above: Performed By: #### ANJALI PRADHAN, BMP #### [address] [place] [address] Health And Safety Representative: Sarai Howell MD Potassium [Moles/Vol] 3.9 mmol/L Normal 3.7-5.3 [facility] Comment on above: Performed By: #### ANJALI PRADHAN, BMP #### [address] [place] [address] Health And Safety Representative: Sarai Howell MD Sodium [Moles/Vol] 139 mmol/L Normal 135-144 [facility] Comment on above: Performed By: #### ANJALI PRADHAN, BMP #### [address] [place], [place] [id number] Health And Safety Representative: Sarai Howell MD Urea nitrogen [Mass/Vol] 18 mg/dL Normal 8-23 [facility] Comment on above: Performed By: #### ANJALI PRADHAN, BMP #### [facility] [address] [place] [address] [place], [place] [id number] Health And Safety Representative: Sarai Howell MD CBC with Diffon 04-25-2023 Abs. Basophil 0.04 k/uL Normal 0.00-0.20 [facility] Comment on above: Performed By: #### ANJALI PRADHAN, BMP #### [facility] [address] [place] [address] [place], [place] [phone] Health And Safety Representative: Sarai Howell MD Abs.Imm.Granulocyte 0.04 k/uL Normal 0.00-0.30 [facility] Comment on above: Performed By: #### ANJALI PRADHAN, BMP #### [address] [place] [address] Health And Safety Representative: Sarai Howell MD Abs.Neutrophil (Seg) 5.64 k/uL Normal 1.50-8.10 [facility] Comment on above: Performed By: #### ANJALI PRADHAN, BMP #### [address] [place] [address] Health And Safety Representative: Sarai Howell MD Basophils/100 WBC (Bld) 1 % Normal 0-2 [facility] Comment on above: Performed By: #### ANJALI PRADHAN, BMP #### [address] [place] [address] Health And Safety Representative: aSrai Howell MD Eosinophils (Bld) [#/Vol] 0.09 10*3/uL Normal 0.00-0.44 [facility] Comment on above: Performed By: #### ANJALI PRADHAN, BMP #### [address] [place] [id number] Health And Safety Representative: Sarai Howell MD Eosinophils/100 WBC (Bld) 1 % Normal 1-4 [facility] Comment on above: Performed By: #### ANJALI PRADHAN, BMP #### [address] [place], [facility]83 Health And Safety Representative: Sarai Howell MD Erythrocyte distribution width (RBC) [Ratio] 15.4 % High 11.8-14.4 [facility] Comment on above: Performed By: #### ANJALI PRADHAN, BMP #### [address] [place] [id number] Health And Safety Representative: Sarai Howell MD Hematocrit (Bld) [Volume fraction] 40.6 % Low 40.7-50.3 [facility] Comment on above: Performed By: #### ANJALI PRADHAN, BMP #### [facility] [address] [place], [facility]83 Health And Safety Representative: Sarai Howell MD Hemoglobin (Bld) [Mass/Vol] 13.1 g/dL Normal 13.0-17.0 [facility] Comment on above: Performed By: #### ANJALI PRADHAN, BMP #### [facility] [address] [place], [place] [address] Health And Safety Representative: Sarai Howell MD Immature granulocytes/100 WBC (Bld) 1 % High 0 [facility] Comment on above: Performed By: #### ANJALI PRADHAN, BMP #### [address] [place], [facility]83 Health And Safety Representative: Sarai Howell MD Lymphocytes (Bld) [#/Vol] 1.86 10*3/uL Normal 1.10-3.70 [facility] Comment on above: Performed By: #### ANJALI PRADHAN, BMP #### [address] [place], [place] [address] Health And Safety Representative: Sarai Howell MD Lymphocytes/100 WBC (Bld) 22 % Low 24-43 [facility] Comment on above: Performed By: #### ANJALI PRADHAN, BMP #### [facility] [address] [place] [address] Dr. [place], [place] [address] Health And Safety Representative: Sarai Howell MD MCH (RBC) [Entitic mass] 29.0 pg Normal 25.2-33.5 [facility] Comment on above: Performed By: #### ANJALI PRADHAN, BMP #### [facility] [address] [place], [facility]83 Health And Safety Representative: Sarai Howell MD MCHC (RBC) [Mass/Vol] 32.3 g/dL Normal 28.4-34.8 [facility] Comment on above: Performed By: #### T ANJALI AYALA, BMP #### [facility] [address] [place], [place] [id number] Health And Safety Representative: Sarai Howell MD MCV (RBC) [Entitic vol] 89.8 fL Normal 82.6-102.9 [facility] Comment on above: Performed By: #### T ANJALI AYALA, BMP #### [facility] [address] [place], [facility]83 Health And Safety Representative: Sarai Howell MD Monocytes (Bld) [#/Vol] 0.83 10*3/uL Normal 0.10-1.20 [facility] Comment on above: Performed By: #### ANJALI PRADHAN, BMP #### [facility] [address] [place], [facility]83 Health And Safety Representative: Sarai Howell MD Monocytes/100 WBC (Bld) 10 % Normal 3-12 [facility] Comment on above: Performed By: #### ANJALI PRADHAN, BMP #### [address] [place], [facility]83 Health And Safety Representative: Sarai Howell MD Neutrophil (Seg) 65 % Normal 36-65 [facility] Comment on above: Performed By: #### ANJALI PRADHAN, BMP #### [facility] [address] [place], [place] [address] Health And Safety Representative: Sarai Howell MD NRBC Automated 0.0 per 100 WBC Normal 0.0 [facility] Comment on above: Performed By: #### ANJALI PRADHAN, BMP #### [facility] [address] [place], [facility]83 Health And Safety Representative: Sarai Howell MD Platelet mean volume (Bld) [Entitic vol] 11.9 fL Normal 8.1-13.5 [facility] Comment on above: Performed By: #### ANJALI PRADHAN, BMP #### [facility] [address] [place], [place] [id number] Health And Safety Representative: Sarai Howell MD Platelets (Bld) [#/Vol] 254 10*3/uL Normal 138-453 [facility] Comment on above: Performed By: #### T ANJALI AYALA, BMP #### [facility] [address] [place] [address] Health And Safety Representative: Sarai Howell MD RBC (Bld) [#/Vol] 4.52 10*6/uL Normal 4.21-5.77 [facility] Comment on above: Performed By: #### T ANJALI AYALA, BMP #### [address] [place], [place] [id number] Health And Safety Representative: Sarai Howell MD WBC (Bld) [#/Vol] 8.5 10*3/uL Normal 3.5-11.3 [facility] Comment on above: Performed By: #### T ANJALI AYALA, BMP #### [address] [place], [facility]83 Health And Safety Representative: Sarai Howell MD CT HEAD WO CONTRASTon [...] Mae MD 04/25/23 Final result Normal [facility] Flu A/B Ag Detectionon 04-25 Flu A Ag Detection Negative Normal NEG [facility] Comment on above: Result Comment: for Influenza A Antigen Performed By: #### F LUABA #### [address] [place] [address] Health And Safety Representative: Sarai Howell MD Flu B Ag Detection Negative Normal NEG [facility] Comment on above: Result Comment: for Influenza B Antigen. Performed By: #### F LUABA #### [facility] [address] [place] [place] [address] [place] [address] Health And Safety Representative: Sarai Howell MD Lactic Acidon 04-25-2023 Lactate [Moles/Vol] 1.3 mmol/L Normal 0.5-2.2 [facility] Comment on above: Performed By: #### L ACTIC #### [facility] [address] [place] [address] [place] [address] Health And Safety Representative: Sarai Howell MD [id number] 04-25-2023 SARS-CoV-2 (COVID-19) RNA JOSÉ MIGUEL+probe Ql (Unsp spec) Not detected Normal NOTDET [facility] Comment on above: Result Comment: Rapid [...] management decisions. Fact sheet for Healthcare Providers: https://www.fda.gov/media/272578/download Fact sheet for Patients: https://www.fda.gov/media/353336/download Methodology: Isothermal Nucleic Acid Amplification Performed By: #### F LUABA #### [address] [place] [address] Health And Safety Representative: Sarai Howell MD Troponinon 04-25-2023 Troponin, High Sens 26 ng/L High [address] Comment on above: Result Comment: High Sensitivity Troponin values cannot be compared with other Troponin methodologies. Performed By: #### F LUABA #### [facility] [address] [place] [address] Dr. Chicas, [facility]83 Health And Safety Representative: Sarai Howell MD Troponin, High Sens 27 ng/L High 022 [facility] Comment on above: Result Comment: High Sensitivity Troponin values cannot be compared with other Troponin methodologies. Performed By: #### T ROPI, CDP, BMP #### [address] [place] [address] Health And Safety Representative: Sarai Howell MD UA w/Reflex Cultureon 2022 Bilirubin, SemiQt,Ur SMALL Abnormal NEG [facility] Comment on above: Performed By: #### F LUABA #### [facility] [address] [place] [address] [place] [address] Health And Safety Representative: Sarai Howell MD Blood, Urine 3+ Abnormal NEG [facility] Comment on above: Performed By: #### F LUABA #### [facility] [address] [place] [address] [address] [place] [id number] Health And Safety Representative: Sarai Howell MD Clarity (U) Cloudy Abnormal CLEAR [facility] Comment on above: Performed By: #### F LUABA #### [facility] [address] [place] [address] [place] [address] Health And Safety Representative: Sarai Howell MD Color (U) Yellow Normal YEL [facility] Comment on above: Performed By: #### F LUABA #### [facility] [address] [place] [address] Dr. [place], [place] [id number] Health And Safety Representative: Sarai Howell MD Glucose Ql (U) Negative Normal NEG [facility] Comment on above: Performed By: #### F LUABA #### [facility] [address] [place] [address] Dr. [place]icas, [place] [phone] Health And Safety Representative: Sarai Howell MD Ketones Ql (U) 1+ mg/dL Abnormal NEG [facility] Comment on above: Performed By: #### F LUABA #### [facility] [address] [place] [address] Dr. [place]icas, [place] [phone] Health And Safety Representative: Sarai Howell MD Leukocyte esterase Test strip Ql (U) TRACE Abnormal NEG [facility] Comment on above: Performed By: #### F LUABA #### [address] [place], [place] [id number] Health And Safety Representative: Sarai Howell MD Nitrite,Ur Negative Normal NEG [facility] Comment on above: Performed By: #### F LUABA #### [facility] [address] [place] [address] Dr. [place]icas, [place] [phone] Health And Safety Representative: Sarai Howell MD PH,Ur 6.0 Normal 5.0-9.0 [facility] Comment on above: Performed By: #### F LUABA #### [facility] [address] [place] [address] Dr. [place]icas, [place] [id number] Health And Safety Representative: Sarai Howell MD Protein Ql (U) 1+ mg/dL Abnormal NEG [facility] Comment on above: Performed By: #### F LUABA #### [facility] [address] [place], [place] [id number] Health And Safety Representative: Sarai Howell MD Spec. [place],Ur >1.030 High 1.010-1.02 0 [facility] Comment on above: Performed By: #### F LUABA #### [facility] [address] [place], [place] [phone] Health And Safety Representative: Sarai Howell MD Urobilinogen,Ur Normal Normal 0.0-1.0 [facility] Comment on above: Performed By: #### F LUABA #### [facility] [address] [place], [place] [phone] Health And Safety Representative: Sarai Howell MD Urinalysis,Microon 3 Bacteria 1+ Abnormal NONE [facility] Comment on above: Performed By: #### F LUABA #### [facility] [address] [place], [place] [phone] Health And Safety Representative: Sarai Howell MD Epithelial cells LM Ql (Urine sed) None Cement 0-5 [facility] Comment on above: Performed By: #### F LUABA #### [facility] [address] [place], [place] [phone] Health And Safety Representative: Sarai Howell MD Mucus Strands TRACE Abnormal NONE [facility] Comment on above: Performed By: #### F LUABA #### [facility] [address] [place], [place] [phone] Health And Safety Representative: Sarai Howell MD Urine RBC's 20 TO 50 Normal 0-2 [facility] Comment on above: Performed By: #### F LUABA #### [facility] [address] [place], [place] [id number] Health And Safety Representative: Sarai Howell MD Urine WBC's 2 TO 5 Normal 0-5 [facility] Comment on above: Performed By: #### F HENRY #### [facility] [address] [place] [address] Health And Safety Representative: Sarai Howell MD XR CHEST PORTABLEon 04-25-20 [...] Henson MD 04/25/23 Final result Normal [facility] BNPon 01-17-2023 Natriuretic peptide B (Bld) [Mass/Vol] 210.0 pg/mL Normal <=900.0 [facility] Comment on above: Performed By: #### B CARPET OR RUG LAYER HELPER, CMADM, CMP ####[facility] [address] [place] [address]Dr. Donna Malone CARDIAC MJ ADMITon 023 CK [Catalytic activity/Vol] 67 U/L Normal 39-308 [facility] Comment on above: Performed By: #### B CARPET OR RUG LAYER HELPER, CMADM, CMP ####[facility] [address] [place] [address]Dr. Donna Malone CK.MB [Mass/Vol] 2.51 ng/mL Normal <=3.60 [facility] Comment on above: Performed By: #### B CARPET OR RUG LAYER HELPER, CMADM, CMP ####[facility] [address] [place] [address]Dr. Donna Malone HSTROP 9.2 pg/mL Normal 4.0-76.1 [facility] Comment on above: Result Comment: CUT- OFF POINTS HAVE BEEN ESTABLISHED BASED ON THE FOURTH UNIVERSAL DEFINITIONS OF MYOCARDIALINFARCTION. THE UPPER REFERENCE LIMIT (URL) OF TROPONIN, DEFINED THE 99TH PERCENTILE OFcTnI DISTRIBUTION IN A REFERENCE POPULATION, HAS BEEN CONFIRMED THE DECISION THRESHOLDFOR [place] DIAGNOSIS. Performed By: #### B CARPET OR RUG LAYER HELPER, CMADM, CMP ####[facility] [address] [place] [address]Dr. Donna Malone BINDU 68 ng/mL Normal 16-96 [facility] Comment on above: Performed By: #### B CARPET OR RUG LAYER HELPER, CMADM, CMP ####[facility] [address] [place] [address]Dr. Donna Faisal CBC AUTO DIFFon 01-17-2023 BASO # 0.1 103/ul Normal 0.0-0.1 [facility] Comment on above: Performed By: #### C BC ####[facility] [address] [place], [place] [address]Dr. Donna Malone Basophils/100 WBC (Bld) 0.8 % Normal 0.2-2.0 [facility] Comment on above: Performed By: #### C BC ####[facility] [address] [place], [place] [address]Dr. Donna Faisal EO # 0.1 103/ul Normal 0.0-0.7 [facility] Comment on above: Performed By: #### C BC ####[facility] [address] [place], [place] [address]Dr. Rubyyvan Malone Eosinophils/100 WBC (Bld) 1.4 % Normal 0.9-7.0 The [facility] Comment on above: Performed By: #### C BC ####[facility] W[address] [place], [place] [address]Dr. Rubyyvan Malone Erythrocyte distribution width (RBC) [Ratio] 14.6 % Normal 11.0-15.0 [facility] Comment on above: Performed By: #### C BC ####[facility] Ijs[address]oups[address] [place], [place] [address]Dr. Rubyyvan Faisal Hematocrit (Bld) [Volume fraction] 43.9 % Normal 42.0-54.0 [facility] Comment on above: Performed By: #### C BC ####[facility] [address] [place], [place] [address]Dr. Donna Malone Hemoglobin (Bld) [Mass/Vol] 14.2 g/dL Normal 14.0-18.0 [facility] Comment on above: Performed By: #### C BC ####[facility] [address] [place] [address]Dr. Donna Malone IG # 0.04 10e3/ul Critically high 0.00-0.03 [facility] Comment on above: Performed By: #### C BC ####[facility] [address] [place] [address]Dr. Donna Malone IG % 0.4 % Normal 0.0-0.5 [facility] Comment on above: Performed By: #### C BC ####[facility] [address] [place], [place] [address]DrElizabeth Malone LYMPH # 2.3 103/ul Normal 1.2-3.8 [facility] Comment on above: Performed By: #### C BC ####[facility] Z[address] [place], [place] [address]Dr. Donna Malone Lymphocytes/100 WBC (Bld) 25.4 % Normal 20.5-60.0 The [facility] Comment on above: Performed By: #### C BC ####[facility] [address] [place] [address]Dr. Donna Malone MANUAL DIFF REQ NO Normal The [facility] Comment on above: Performed By: #### C BC ####[facility] [address] [place], [place] [address]DrElizabeth Malone MCH (RBC) [Entitic mass] 29.6 pg Normal 25.9-34.0 The [facility] Comment on above: Performed By: #### C BC ####[facility] Ecrs[address] [place], [place] [address]DrElizabeth Malone MCHC (RBC) [Mass/Vol] 32.3 g/dL Normal 29.9-35.2 [facility] Comment on above: Performed By: #### C BC ####[facility] Eveel[address]jz[address] [place], [place] [address]Dr. Donna Malone MCV (RBC) [Entitic vol] 91.5 fL Normal 80.0-94.0 [facility] Comment on above: Performed By: #### C BC ####[facility] Gqu[address] [place], [place] [address]Dr. Donna Malone MONO # 0.7 103/ul Normal 0.3-0.8 The [facility] Comment on above: Performed By: #### C BC ####[facility] Hznyc[address] [place], [place] [address]Dr. Donna Faisal Monocytes/100 WBC (Bld) 7.5 % Normal 1.7-12.0 [facility] Comment on above: Performed By: #### C BC ####[facility] Y[address]ee[address]esq[address] [place], [place] [address]Dr. Donna Malone NEUT # 5.9 103/ul Normal 1.4-6.5 The [facility] Comment on above: Performed By: #### C BC ####[facility] [address] [place], [place] [address]Dr. Donna Faisal Neutrophils/100 WBC (Bld) 64.5 % Normal 43.0-75.0 The [facility] Comment on above: Performed By: #### C BC ####[facility] Ansalw[address] [place], [place] [address]Dr. Donna Faisal Platelet mean volume (Bld) [Entitic vol] 10.6 fL Normal 9.5-13.5 The [facility] Comment on above: Performed By: #### C BC ####[facility] Dmcch[address] [place], [place] [address]Dr. Donna Faisal PLT 296 103/ul Normal 150-450 [facility] Comment on above: Performed By: #### C BC ####[facility] [address]ek[address]uk[address] [place], [place] [address]Dr. Rubyyvan Faisal RBC 4.80 106/ul Normal 4.70-6.10 The [facility] Comment on above: Performed By: #### C BC ####[facility] [address] [place], [place] [address]Dr. Donna Malone WBC 9.1 103/ul Normal 4.0-11.0 [facility] Comment on above: Performed By: #### C BC ####[facility] [address] [place] [address]Dr. Donna Malone CT CSPINE WO CONon 3 CT CSPINE WO CON Normal The [facility] CT HEAD WO CONon 01-17-2023 CT HEAD WO CON Normal The [facility] CT LSPINE WO CONon 3 CT LSPINE WO CON Normal The [facility] PROF 14(COMP METB)on 023 Albumin [Mass/Vol] 3.3 g/dL Critically low 3.4-5.0 Th e [facility] Comment on above: Performed By: #### B CARPET OR RUG LAYER HELPER, CMADM, CMP ####[facility] [address] [place] [address]Dr. Donna Malone Albumin/Globulin [Mass ratio] 0.8 {ratio} Normal [facility] Comment on above: Performed By: #### B CARPET OR RUG LAYER HELPER, CMADM, CMP ####[facility] [address] [place] [address]Dr. Donna Malone ALP [Catalytic activity/Vol] 55 U/L Normal 46-116 [facility] Comment on above: Performed By: #### B CARPET OR RUG LAYER HELPER, CMADM, CMP ####[facility] [address] [place] [address]Dr. Donna Malone ALT [Catalytic activity/Vol] 15 U/L Critically low 16-63 [facility] Comment on above: Performed By: #### B CARPET OR RUG LAYER HELPER, CMADM, CMP ####[facility] [address]yrs[address] [place] [address]Dr. Donna Malone Anion gap [Moles/Vol] 9.6 mmol/L Normal [facility] Comment on above: Performed By: #### B CARPET OR RUG LAYER HELPER, CMADM, CMP ####[facility] [address] [place] [address]Dr. Donna Malone AST [Catalytic activity/Vol] 14 U/L Critically low 15-37 [facility] Comment on above: Performed By: #### B CARPET OR RUG LAYER HELPER, CMADM, CMP ####[facility] [address] [place] [address]Dr. Donna Malone Bilirubin [Mass/Vol] 0.2 mg/dL Normal 0.2-1.0 The [facility] Comment on above: Performed By: #### B CARPET OR RUG LAYER HELPER, CMADM, CMP ####[facility] [address] [place] [address]Dr. Donna Malone Calcium [Mass/Vol] 8.6 mg/dL Normal 8.5-10.1 The [facility] Comment on above: Performed By: #### B CARPET OR RUG LAYER HELPER, CMADM, CMP ####[facility] [address] [place] [address]Dr. Donna Malone Chloride [Moles/Vol] 107 mmol/L Normal 98-107 [facility] Comment on above: Performed By: #### B CARPET OR RUG LAYER HELPER, CMADM, CMP ####[facility] [address]qgcok[address] [place], [place] [address]Dr. Donna Malone CO2 [Moles/Vol] 25.9 mmol/L Normal 21.0-32.0 The [facility] Comment on above: Performed By: #### B CARPET OR RUG LAYER HELPER, CMADM, CMP ####[facility] [address]ox[address] [place], [place] [address]Dr. Donna Malone Creatinine [Mass/Vol] 1.12 mg/dL Normal 0.70-1.30 The [facility] Comment on above: Performed By: #### B CARPET OR RUG LAYER HELPER, CMADM, CMP ####[facility] [address]rwoisfi[address] [place], [place] [address]Dr. Donna Malone EGFR-AF LIBERIAN >60 Normal >=60 The [facility] Comment on above: Performed By: #### B CARPET OR RUG LAYER HELPER, CMADM, CMP ####[facility] Pfdcnmlptz[address] [place], [place] [address]Dr. Donna Malone EGFR-NON AF LIBERIAN >60 Normal >=60 The [facility] Comment on above: Performed By: #### B CARPET OR RUG LAYER HELPER, CMADM, CMP ####[facility] [address] [place] [address]Dr. Donna Malone Globulin (S) [Mass/Vol] 4.2 g/dL Normal [facility] Comment on above: Performed By: #### B CARPET OR RUG LAYER HELPER, CMADM, CMP ####[facility] [address] [place] [address]Dr. Donna Malone Glucose [Mass/Vol] 163 mg/dL Critically high 74-106 T [facility] Comment on above: Performed By: #### B CARPET OR RUG LAYER HELPER, CMADM, CMP ####[facility] [address] [place] [address]Dr. Donna Malone Potassium [Moles/Vol] 4.5 mmol/L Normal 3.5-5.1 [facility] Comment on above: Performed By: #### B CARPET OR RUG LAYER HELPER, CMADM, CMP ####[facility] Zomdecxzzi[address] [place], [place] [address]Dr. Donna Malone Protein [Mass/Vol] 7.5 g/dL Normal 6.4-8.2 The [facility] Comment on above: Performed By: #### B CARPET OR RUG LAYER HELPER, CMADM, CMP ####[facility] Fbissbakqg[address] [place], [place] [address]Dr. Donna Malone Sodium [Moles/Vol] 138 mmol/L Normal 136-145 [facility] Comment on above: Performed By: #### B CARPET OR RUG LAYER HELPER, CMADM, CMP ####[facility] [address] [place] [address]Dr. Donna Malone Urea nitrogen [Mass/Vol] 11.0 mg/dL Normal 7.0-18.0 [facility] Comment on above: Performed By: #### B CARPET OR RUG LAYER HELPER, CMADM, CMP ####[facility] [address] [place] [address]Dr. Donna Malone Urea nitrogen/Creatinine [Mass ratio] 9.8 mg/mg Normal The [facility] Comment on above: Performed By: #### B CARPET OR RUG LAYER HELPER, CMADM, CMP ####[facility] [address] [place] [address]Dr. Donna Malone PROTIMEon 01-17-2023 INR Coag (PPP) [Relative time] 0.94 {INR} Normal The [facility] Comment on above: Performed By: #### P TT, PT ####[facility] Sc[address]kdpubn[address] [place], [place] [address]Dr. Donna Malone INR GUIDELINES SEE BELOW Normal The [facility] Comment on above: Result Comment: FLORESITA RED INR: 2.0 - 3.0 CONDITIONS NOT LISTED BELOW 2.5 - 3.5 FOR PROSTHETIC HEART VALVE REPLACEMENT 2.5 - 3.5 RECURRENT THROMBOSIS Performed By: #### P TT, PT ####[facility] [address] [place], [place] [address]Dr. Donna Malone PT Coag (PPP) [Time] 10.0 s Normal 9.0-11.6 [facility] Comment on above: Performed By: #### P TT, PT ####[facility] Fbcvxqijgd[address] [place], [place] [address]Dr. Rubyyvan Malone PTTon 01-17-2023 aPTT Coag (Bld) [Time] 29.6 s Normal 22.3-36.2 [facility] Comment on above: Performed By: #### P TT, PT ####[facility] Fawoesyfws[address] [place], [place] [address]Dr. Donna Malone CBC AUTO DIFFon 11-17-2022 BASO # 0.0 103/ul Normal 0.0-0.1 [facility] Comment on above: Performed By: #### C BC ####[facility] Y[address]afrpi[address] [place], [place] [address]Dr. Donna Malone Basophils/100 WBC (Bld) 0.2 % Normal 0.2-2.0 The [facility] Comment on above: Performed By: #### C BC ####[facility] Kaodhtq[address]uc[address] [place], [place] [address]Dr. Donna Malone EO # 0.0 103/ul Normal 0.0-0.7 [facility] Comment on above: Performed By: #### C BC ####[facility] Dcliuyi[address] [place], [place] [address]Dr. Donna Malone Eosinophils/100 WBC (Bld) 0.0 % Critically low 0.9-7.0 The [facility] Comment on above: Performed By: #### C BC ####[facility] [address]kw[address] [place] [address]Dr. Donna Malone Erythrocyte distribution width (RBC) [Ratio] 14.5 % Normal 11.0-15.0 [facility] Comment on above: Performed By: #### C BC ####[facility] [address] [place] [address]Dr. Donna Malone Hematocrit (Bld) [Volume fraction] 39.6 % Critically low 42.0-54.0 The [facility] Comment on above: Performed By: #### C BC ####[facility] Epvksgpvpr9[address] [place], [place] [address]Dr. Donna Malone Hemoglobin (Bld) [Mass/Vol] 13.3 g/dL Critically low 14.0-18.0 The [facility] Comment on above: Performed By: #### C BC ####[facility] Tyxyktkwmz[address] [place], [place] [address]Dr. Donna Malone IG # 0.06 10e3/ul Critically high 0.00-0.03 [facility] Comment on above: Performed By: #### C BC ####[facility] Paoy[address]llbnr[address] [place], [place] [address]Dr. Donna Malone IG % 0.5 % Normal 0.0-0.5 [facility] Comment on above: Performed By: #### C BC ####[facility] Obgmxhajex[address] [place], [place] [address]Dr. Donna Malone LYMPH # 1.0 103/ul Critically low 1.2-3.8 The [facility] Comment on above: Performed By: #### C BC ####[facility] Br[address]ldwlcp[address] [place], [place] [address]Dr. Donna Malone Lymphocytes/100 WBC (Bld) 8.3 % Critically low 20.5-60.0 The [facility] Comment on above: Performed By: #### C BC ####[facility] [address]ps[address]uem[address] [place], [place] [address]Dr. Rubyyvan Malone MANUAL DIFF REQ NO Normal The [facility] Comment on above: Performed By: #### C BC ####[facility] [address] [place] [address]Dr. Donna Malone MCH (RBC) [Entitic mass] 29.4 pg Normal 25.9-34.0 The [facility] Comment on above: Performed By: #### C BC ####[facility] [address]rsab[address] [place] [address]Dr. Donna Maloen MCHC (RBC) [Mass/Vol] 33.6 g/dL Normal 29.9-35.2 The [facility] Comment on above: Performed By: #### C BC ####[facility] [address]wi[address] [place] [address]Dr. Donna Faisal MCV (RBC) [Entitic vol] 87.6 fL Normal 80.0-94.0 [facility] Comment on above: Performed By: #### C BC ####[facility] H[address] [place], [place] [address]Dr. Donna Malone MONO # 0.8 103/ul Normal 0.3-0.8 The [facility] Comment on above: Performed By: #### C BC ####[facility] E[address]cl[address] [place] [address]Dr. Rubyyvan Malone Monocytes/100 WBC (Bld) 6.6 % Normal 1.7-12.0 The [facility] Comment on above: Performed By: #### C BC ####[facility] H[address]yrdndqe[address] [place], [place] [address]Dr. Rubyyvan Malone NEUT # 10.2 103/ul Critically high 1.4-6.5 The [facility] Comment on above: Performed By: #### C BC ####[facility] [address] [place], [place] [address]Dr. Donna Malone Neutrophils/100 WBC (Bld) 84.4 % Critically high 43.0-75.0 The [facility] Comment on above: Performed By: #### C BC ####[facility] [address]fzsyd[address] [place], [place] [address]Dr. Donna Malone Platelet mean volume (Bld) [Entitic vol] 11.5 fL Normal 9.5-13.5 The [facility] Comment on above: Performed By: #### C BC ####[facility] [address] [place] [address]Dr. Donna Malone PLT 204 103/ul Normal 150-450 [facility] Comment on above: Performed By: #### C BC ####[facility] [address] [place] [address]Dr. Donna Malone RBC 4.52 106/ul Critically low 4.70-6.10 [facility] Comment on above: Performed By: #### C BC ####[facility] [address] [place] [address]Dr. Donna Malone WBC 12.0 103/ul Critically high 4.0-11.0 The [facility] Comment on above: Performed By: #### C BC ####[facility] [address]wxti[address] [place] [address]Dr. Donna Malone MAGNESIUMon 11-17-2022 Magnesium [Mass/Vol] 1.9 mg/dL Normal 1.8-2.4 [facility] Comment on above: Performed By: #### C MP, MG ####[facility] [address] [place] [address]Dr. Donna Malone PROF 14(COMP METB)on 023 Albumin [Mass/Vol] 3.2 g/dL Critically low 3.4-5.0 [facility] Comment on above: Performed By: #### C MP, MG ####[facility] [address]wn[address] [place] [address]Dr. Donna Malone Albumin/Globulin [Mass ratio] 1.0 {ratio} Normal The [facility] Comment on above: Performed By: #### C MP, MG ####[facility] [address]xli[address] [place] [address]Dr. Donna Malone ALP [Catalytic activity/Vol] 51 U/L Normal 46-116 [facility] Comment on above: Performed By: #### C MP, MG ####[facility] [address]rwz[address] [place] [address]Dr. Donna Malone ALT [Catalytic activity/Vol] 16 U/L Normal 16-63 The [facility] Comment on above: Performed By: #### C MP, MG ####[facility] [address]qbzmt[address] [place] [address]Dr. Donna Malone Anion gap [Moles/Vol] 14.7 mmol/L Normal Th e [facility] Comment on above: Performed By: #### C MP, MG ####[facility] Ktyeypezbf[address] [place] [address]Dr. Donna Malone AST [Catalytic activity/Vol] 24 U/L Normal 15-37 The [facility] Comment on above: Performed By: #### C MP, MG ####[facility] Siww[address]uvxq[address] [place] [address]Dr. Donna Malone Bilirubin [Mass/Vol] 0.5 mg/dL Normal 0.2-1.0 [facility] Comment on above: Performed By: #### C MP, MG ####[facility] [address] [place], [place] [address]Dr. Donna Malone Calcium [Mass/Vol] 8.6 mg/dL Normal 8.5-10.1 [facility] Comment on above: Performed By: #### C MP, MG ####[facility] [address]we[address] [place], [place] [address]Dr. Donna Malone Chloride [Moles/Vol] 108 mmol/L Critically high 98-107 [facility] Comment on above: Performed By: #### C MP, MG ####[facility] Fjlltecolq5[address] [place], [place] [address]Dr. Rubyyvan Malone CO2 [Moles/Vol] 21.6 mmol/L Normal 21.0-32.0 [facility] Comment on above: Performed By: #### C MP, MG ####[facility] Ikjvnbgrib9[address] [place], [place] [address]Dr. Donna Malone Creatinine [Mass/Vol] 0.83 mg/dL Normal 0.70-1.30 [facility] Comment on above: Performed By: #### C MP, MG ####[facility] Efplrseruc5[address] [place], [place] [address]Dr. Donna Malone EGFR-AF LIBERIAN >60 Normal >=60 [facility] Comment on above: Performed By: #### C MP, MG ####[facility] [address] [place] [address]Dr. Donna Malone EGFR-NON AF LIBERIAN >60 Normal >=60 [facility] Comment on above: Performed By: #### C MP, MG ####[facility] Ezhzoirwas[address] [place] [address]Dr. Donna Malone Globulin (S) [Mass/Vol] 3.2 g/dL Normal [facility] Comment on above: Performed By: #### C MP, MG ####[facility] Hagonwdedk[address] [place] [address]Dr. Donna Malone Glucose [Mass/Vol] 162 mg/dL Critically high 74-106 [facility] Comment on above: Performed By: #### C MP, MG ####[facility] Rnwqdilvks697[address] [place], [place] [address]Dr. Donna Malone Potassium [Moles/Vol] 3.3 mmol/L Critically low 3.5-5.1 [facility] Comment on above: Performed By: #### C MP, MG ####[facility] Wuvemblhjf3662[address] [place], [place] [address]Dr. Donna Malone Protein [Mass/Vol] 6.4 g/dL Normal 6.4-8.2 [facility] Comment on above: Performed By: #### C MP, MG ####[facility] Gpxggohsqh5762[address] [place], [place] [address]Dr. Donna Malone Sodium [Moles/Vol] 141 mmol/L Normal 136-145 [facility] Comment on above: Performed By: #### C MP, MG ####[facility] Ivwxgmsayd7009[address] [place], [place] [address]Dr. Donna Malone Urea nitrogen [Mass/Vol] 12.0 mg/dL Normal 7.0-18.0 [facility] Comment on above: Performed By: #### C MP, MG ####[facility] Iudknkcywv9080[address] [place], [place] [address]Dr. Donna Malone Urea nitrogen/Creatinine [Mass ratio] 14.5 mg/mg Normal [facility] Comment on above: Performed By: #### C MP, MG ####[facility] Yhuyzkhrtb88[address] [place], [place] [address]Dr. Donna Malone AMMONIAon 11-16-2022 Ammonia (P) [Mass/Vol] ug/dL Critically low 11-32 [facility] Comment on above: Performed By: #### A MM ####[facility] Ixwzszievb03[address] [place], [place] [address]Dr. Donna Malone CBC AUTO DIFFon 11-16-2022 BASO # 0.0 103/ul Normal 0.0-0.1 [facility] Comment on above: Performed By: #### C BC ####[facility] Ifauwlvmoe217464 [address] [place], [place] [address]Dr. Rubyyvan Malone Basophils/100 WBC (Bld) 0.2 % Normal 0.2-2.0 [facility] Comment on above: Performed By: #### C BC ####[facility] Ketrpiaden696764 [address] [place], [place] [address]Dr. Donna Malone EO # 0.0 103/ul Normal 0.0-0.7 [facility] Comment on above: Performed By: #### C BC ####[facility] Krruzgrbax601164 [address] [place], [place] [address]Dr. Donna Malone Eosinophils/100 WBC (Bld) 0.0 % Critically low 0.9-7.0 [facility] Comment on above: Performed By: #### C BC ####[facility] Jxzbjtsurr5295[address] [place], [place] [address]Dr. Donna Malone Erythrocyte distribution width (RBC) [Ratio] 14.4 % Normal 11.0-15.0 [facility] Comment on above: Performed By: #### C BC ####[facility] Vuhutkuesk5732[address] [place], [place] [address]Dr. Donna Malone Hematocrit (Bld) [Volume fraction] 38.6 % Critically low 42.0-54.0 [facility] Comment on above: Performed By: #### C BC ####[facility] [address]fxaiumwwo[address] [place] [address]Dr. Donna Malone Hemoglobin (Bld) [Mass/Vol] 13.1 g/dL Critically low 14.0-18.0 [facility] Comment on above: Performed By: #### C BC ####[facility] Dkzbhvdhai30[address] [place] [address]Dr. Donna Malone IG # 0.05 10e3/ul Critically high 0.00-0.03 [facility] Comment on above: Performed By: #### C BC ####[facility] Wbajksvzkk39[address] [place] [address]Dr. Donna Malone IG % 0.5 % Normal 0.0-0.5 [facility] Comment on above: Performed By: #### C BC ####[facility] Ejfdnomfch[address] [place] [address]Dr. Donna Malone LYMPH # 1.0 103/ul Critically low 1.2-3.8 [facility] Comment on above: Performed By: #### C BC ####[facility] Vopbjxqgvx5998[address] [place], [place] [address]Dr. Donna Malone Lymphocytes/100 WBC (Bld) 10.8 % Critically low 20.5-60.0 [facility] Comment on above: Performed By: #### C BC ####[facility] Aynkhnfrjg8312[address] [place], [place] [address]Dr. Donna Malone MANUAL DIFF REQ NO Normal [facility] Comment on above: Performed By: #### C BC ####[facility] Pgvsowxydi7035[address] [place], [place] [address]Dr. Donna Malone MCH (RBC) [Entitic mass] 29.4 pg Normal 25.9-34.0 [facility] Comment on above: Performed By: #### C BC ####[facility] Zjxntgsxzx7089[address] [place], [place] [address]Dr. Donna Malone MCHC (RBC) [Mass/Vol] 33.9 g/dL Normal 29.9-35.2 [facility] Comment on above: Performed By: #### C BC ####[facility] [address]qhotmgacv41[address] [place] [address]Dr. Donna Malone MCV (RBC) [Entitic vol] 86.7 fL Normal 80.0-94.0 [facility] Comment on above: Performed By: #### C BC ####[facility] Dczudkzrgu8[address] [place] [address]Dr. Donna Malone MONO # 0.4 103/ul Normal 0.3-0.8 [facility] Comment on above: Performed By: #### C BC ####[facility] Lunzdyryei11[address] [place] [address]Dr. Donna Malone Monocytes/100 WBC (Bld) 4.4 % Normal 1.7-12.0 [facility] Comment on above: Performed By: #### C BC ####[facility] Abwbzejpuf36[address] [place], [place] [address]Dr. Donna Malone NEUT # 7.9 103/ul Critically high 1.4-6.5 [facility] Comment on above: Performed By: #### C BC ####[facility] Uwqmskenjg5082[address] [place], [place] [address]Dr. Donna Malone Neutrophils/100 WBC (Bld) 84.1 % Critically high 43.0-75.0 The [facility] Comment on above: Performed By: #### C BC ####[facility] Jzpycgexrh90[address] [place] [address]Dr. Donna Malone Platelet mean volume (Bld) [Entitic vol] 11.3 fL Normal 9.5-13.5 The [facility] Comment on above: Performed By: #### C BC ####[facility] Qqdecyfjes43[address] [place] [address]Dr. Donna Faisal PLT 201 103/ul Normal 150-450 [facility] Comment on above: Performed By: #### C BC ####[facility] Vhjtuqpopa18[address] [place] [address]Dr. Donna Malone RBC 4.45 106/ul Critically low 4.70-6.10 [facility] Comment on above: Performed By: #### C BC ####[facility] Gvfmgevyzv45[address] [place] [address]Dr. Donna Malone WBC 9.3 103/ul Normal 4.0-11.0 [facility] Comment on above: Performed By: #### C BC ####[facility] Oylqqaitis5601[address] [place], [place] [address]Dr. Donna Malone GLYCOHEMOGLOBIN A1Con 2022 ADA RECOMMENDATION SEE BELOW Normal [facility] Comment on above: Result Comment: ADA RECOMMENDED LIMIT 4.0 - 6.0 ADA THERAPEUTIC TARGET < 7.0 ACTION SUGGESTED > 7.0 Performed By: #### A 1C ####[facility] Pnfwdthens6528[address] [place], [place] [address]Dr. Donna Malone Glucose [Mass/Vol] 128 mg/dL Normal [facility] Comment on above: Performed By: #### A 1C ####[facility] Lwhcyjhipq2185[address] [place], [place] [address]Dr. Donna Malone HbA1c (Bld) [Mass fraction] 6.1 % Normal 4.5-6.2 [facility] Comment on above: Performed By: #### A 1C ####[facility] Cwfkgjtzjz7688[address] [place], [place] [address]Dr. Donna Malone MAGNESIUMon 11-16-2022 Magnesium [Mass/Vol] 1.8 mg/dL Normal 1.8-2.4 [facility] Comment on above: Performed By: #### C MP, MG ####[facility] Cqlgexjvlg8796[address] [place], [place] [address]Dr. Donna Malone POINT OF CARE GLUCOSEon 11-07 Glucose [Mass/Vol] 170 mg/dL Critically high 74-106 [facility] Comment on above: Performed By: #### P OCGLUC ####[facility] Bzqkyifhgm0232[address] [place], [place] [address]Dr. Donna Malone Glucose [Mass/Vol] 158 mg/dL Critically high 74-106 [facility] Comment on above: Performed By: #### P OCGLUC ####[facility] Hgnunnirft6[address] [place], [place] [address]Dr. Donna Malone Glucose [Mass/Vol] 176 mg/dL Critically high 74-106 [facility] Comment on above: Performed By: #### P OCGLUC ####[facility] Zrwszzbkoy4[address] [place] [address]Dr. Donna Malone PROF 14(COMP METB)on 023 Albumin [Mass/Vol] 3.1 g/dL Critically low 3.4-5.0 [facility] Comment on above: Performed By: #### C MP, MG ####[facility] Iosctdkknh6[address] [place] [address]Dr. Donna Malone Albumin/Globulin [Mass ratio] 0.9 {ratio} Normal [facility] Comment on above: Performed By: #### C MP, MG ####[facility] Dcwetquwid4553[address] [place], [place] [address]Dr. Donna Malone ALP [Catalytic activity/Vol] 52 U/L Normal 46-116 [facility] Comment on above: Performed By: #### C MP, MG ####[facility] Doebcojlho74[address] [place] [address]Dr. Donna Malone ALT [Catalytic activity/Vol] 13 U/L Critically low 16-63 [facility] Comment on above: Performed By: #### C MP, MG ####[facility] Inmjpbvulu8166 [place] [address]Dr. Donna Malone Anion gap [Moles/Vol] 15.7 mmol/L Normal [facility] Comment on above: Performed By: #### C MP, MG ####[facility] Vryezashpo5503 [place] [address]Dr. Donna Malone AST [Catalytic activity/Vol] 16 U/L Normal 15-37 [facility] Comment on above: Performed By: #### C MP, MG ####[facility] Nwmznmgpau14[address] [place] [address]Dr. Donna Malone Bilirubin [Mass/Vol] 0.5 mg/dL Normal 0.2-1.0 [facility] Comment on above: Performed By: #### C MP, MG ####[facility] Ienoxdqbpj9676[address] [place], [place] [address]Dr. Donna Malone Calcium [Mass/Vol] 8.6 mg/dL Normal 8.5-10.1 [facility] Comment on above: Performed By: #### C MP, MG ####[facility] Vgszwlhcil7632 [place] [address]Dr. Donna Faisal Chloride [Moles/Vol] 109 mmol/L Critically high 98-107 [facility] Comment on above: Performed By: #### C MP, MG ####[facility] Sknbmfxoel3489[address] [place], [place] [address]Dr. Donna Malone CO2 [Moles/Vol] 21.7 mmol/L Normal 21.0-32.0 [facility] Comment on above: Performed By: #### C MP, MG ####[facility] Ooinorbxpy6516[address] [place], [place] [address]Dr. Rubyyvan Malone Creatinine [Mass/Vol] 0.99 mg/dL Normal 0.70-1.30 [facility] Comment on above: Performed By: #### C MP, MG ####[facility] Xnennvonzu0206[address] [place], [place] [address]Dr. Donna Faisal EGFR-AF LIBERIAN >60 Normal >=60 [facility] Comment on above: Performed By: #### C MP, MG ####[facility] Esybwfuasl132[address] [place], [place] [address]Dr. Donna Faisal EGFR-NON AF LIBERIAN >60 Normal >=60 [facility] Comment on above: Performed By: #### C MP, MG ####[facility] Qjgjsvgfuq1125[address] [place], [place] [address]Dr. Donan Faisal Globulin (S) [Mass/Vol] 3.3 g/dL Normal [facility] Comment on above: Performed By: #### C MP, MG ####[facility] Tctgaejnee7587[address] [place], [place] [address]Dr. Donna Malone Glucose [Mass/Vol] 168 mg/dL Critically high 74-106 [facility] Comment on above: Performed By: #### C MP, MG ####[facility] Bgipwppezx8980[address] [place], [place] [address]Dr. Yiyvan Malone Potassium [Moles/Vol] 3.4 mmol/L Critically low 3.5-5.1 [facility] Comment on above: Performed By: #### C MP, MG ####[facility] Mmsglxbfvy5[address] [place] [address]Dr. Donna Malone Protein [Mass/Vol] 6.4 g/dL Normal 6.4-8.2 [facility] Comment on above: Performed By: #### C MP, MG ####[facility] Yqqaiakrpr2320[address] [place], [place] [address]Dr. Rubyyvan Malone Sodium [Moles/Vol] 143 mmol/L Normal 136-145 [facility] Comment on above: Performed By: #### C MP, MG ####[facility] Liywgqtyyo219[address] [place], [place] [address]Dr. Donna Malone Urea nitrogen [Mass/Vol] 9.0 mg/dL Normal 7.0-18.0 [facility] Comment on above: Performed By: #### C MP, MG ####[facility] Uwtewhqthr2516[address] [place], [place] [address]Dr. Rubyyvan Malone Urea nitrogen/Creatinine [Mass ratio] 9.1 mg/mg Normal [facility] Comment on above: Performed By: #### C MP, MG ####[facility] Sprpbwoqnm827364 [address] [place], [place] [address]Dr. Donna Faisal XR CHEST 2 Von 11-16-2022 XR CHEST 2 V Normal [facility] AMMONIAon 11-15-2022 Ammonia (P) [Moles/Vol] 20 umol/L Normal 11-32 [facility] Comment on above: Performed By: #### A MM ####[facility] Cnlgpwntcp3625[address] [place], [place] [address]Dr. Rubyyvan Malone CBC AUTO DIFFon 11-15-2022 BASO # 0.0 103/ul Normal 0.0-0.1 [facility] Comment on above: Performed By: #### C BC ####[facility] Kbmbepjely1623[address] [place], [place] [address]Dr. Donna Malone Basophils/100 WBC (Bld) 0.5 % Normal 0.2-2.0 [facility] Comment on above: Performed By: #### C BC ####[facility] Dzhqwfdxja0583[address] [place], [place] [address]Dr. Donna Malone EO # 0.1 103/ul Normal 0.0-0.7 [facility] Comment on above: Performed By: #### C BC ####[facility] Dgdnjjyucy4374[address] [place], [place] [address]Dr. Rubyyvan Malone Eosinophils/100 WBC (Bld) 1.4 % Normal 0.9-7.0 [facility] Comment on above: Performed By: #### C BC ####[facility] Kersmqndiy0170[address] [place], [place] [address]Dr. Rubyyvan Malone Erythrocyte distribution width (RBC) [Ratio] 14.6 % Normal 11.0-15.0 [facility] Comment on above: Performed By: #### C BC ####[facility] Hsivlxqsfy3759[address] [place], [place] [address]DrElizabeth Rubyyvan Malone Hematocrit (Bld) [Volume fraction] 36.8 % Critically low 42.0-54.0 [facility] Comment on above: Performed By: #### C BC ####[facility] Nknextipim9375[address] [place], [place] [address]DrElizabeth Donna Malone Hemoglobin (Bld) [Mass/Vol] 12.1 g/dL Critically low 14.0-18.0 [facility] Comment on above: Performed By: #### C BC ####[facility] Frqicizxqk023[address] [place], [place] [address]Dr. Rubyyvan Malone IG # 0.01 10e3/ul Normal 0.00-0.03 [facility] Comment on above: Performed By: #### C BC ####[facility] Yrpdoslnlp164[address] [place], [place] [address]Dr. Donna Malone IG % 0.2 % Normal 0.0-0.5 [facility] Comment on above: Performed By: #### C BC ####[facility] Sjtecdsqaa2498[address] [place], [place] [address]DrElizabeth Malone LYMPH # 1.7 103/ul Normal 1.2-3.8 [facility] Comment on above: Performed By: #### C BC ####[facility] [address]vipnhou25[address] [place] [address]Dr. Donna Malone Lymphocytes/100 WBC (Bld) 27.0 % Normal 20.5-60.0 [facility] Comment on above: Performed By: #### C BC ####[facility] Pfdfwdvbog30[address] [place] [address]Dr. Donna Malone MANUAL DIFF REQ NO Normal [facility] Comment on above: Performed By: #### C BC ####[facility] Xuhsdefigr7654 [place] [address]Dr. Donna Malone MCH (RBC) [Entitic mass] 29.5 pg Normal 25.9-34.0 [facility] Comment on above: Performed By: #### C BC ####[facility] Yxbgdzmlfx9308[address] [place], [place] [address]Dr. Donna Malone MCHC (RBC) [Mass/Vol] 32.9 g/dL Normal 29.9-35.2 [facility] Comment on above: Performed By: #### C BC ####[facility] Toboioawrv1843[address] [place], [place] [address]Dr. Donna Malone MCV (RBC) [Entitic vol] 89.8 fL Normal 80.0-94.0 [facility] Comment on above: Performed By: #### C BC ####[facility] Vhltszuxlb2706[address] [place], [place] [address]Dr. Donna Malone MONO # 0.4 103/ul Normal 0.3-0.8 [facility] Comment on above: Performed By: #### C BC ####[facility] Nzwikbsgtn0093[address] [place], [place] [address]Dr. Donna Malone Monocytes/100 WBC (Bld) 6.7 % Normal 1.7-12.0 [facility] Comment on above: Performed By: #### C BC ####[facility] Dzdjxmrngi56[address] [place], [place] [address]DrElizabeth Malone NEUT # 4.0 103/ul Normal 1.4-6.5 [facility] Comment on above: Performed By: #### C BC ####[facility] Gqmejjrodm8714 [place] [address]Dr. Donna Faisal Neutrophils/100 WBC (Bld) 64.2 % Normal 43.0-75.0 [facility] Comment on above: Performed By: #### C BC ####[facility] Jjhjfiwtwy74[address] [place] [address]Dr. Donna Faisal Platelet mean volume (Bld) [Entitic vol] 11.3 fL Normal 9.5-13.5 [facility] Comment on above: Performed By: #### C BC ####[facility] Imyaekmdjs52[address] [place] [address]Dr. Donna Malone PLT 169 103/ul Normal 150-450 [facility] Comment on above: Performed By: #### C BC ####[facility] Ysefxvatgy3760 [place] [address]Dr. Donna Malone RBC 4.10 106/ul Critically low 4.70-6.10 [facility] Comment on above: Performed By: #### C BC ####[facility] Ywsmsooyxp2395 [place] [address]Dr. Rubyyvan Malone WBC 6.3 103/ul Normal 4.0-11.0 [facility] Comment on above: Performed By: #### C BC ####[facility] B[address]pihw7[address] [place] [address]DrElizabeth Donna Faisal GLYCOHEMOGLOBIN A1Con 2022 ADA RECOMMENDATION SEE BELOW Normal [facility] Comment on above: Result Comment: ADA RECOMMENDED LIMIT 4.0 - 6.0 ADA THERAPEUTIC TARGET < 7.0 ACTION SUGGESTED > 7.0 Performed By: #### A 1C ####[facility] Eqjeoxlsih[address] [place], [place] [address]DrElizabeth Malone Glucose [Mass/Vol] 128 mg/dL Normal [facility] Comment on above: Performed By: #### A 1C ####[facility] Dncshyndnm4461 [place] [address]DrElizabeth Malone HbA1c (Bld) [Mass fraction] 6.1 % Normal 4.5-6.2 [facility] Comment on above: Performed By: #### A 1C ####[facility] [address]uhwxnrotp63[address] [place] [address]Dr. Donna Malone MAGNESIUMon 11-15-2022 Magnesium [Mass/Vol] 1.6 mg/dL Critically low 1.8-2.4 [facility] Comment on above: Performed By: #### C MP, MG ####[facility] Xctxpndgdk0959 [place] [address]Dr. Donna Malone POINT OF CARE GLUCOSEon Glucose [Mass/Vol] 165 mg/dL Critically high 74-106 [facility] Comment on above: Performed By: #### P OCGLUC ####[facility] Xpxgdvxhaq4434[address] [place], [place] [address]Dr. Donna Malone Glucose [Mass/Vol] 155 mg/dL Critically high 74-106 [facility] Comment on above: Performed By: #### P OCGLUC ####[facility] Nnvxsxvtxn1096[address] [place], [place] [address]Dr. Donna Malone Glucose [Mass/Vol] 111 mg/dL Critically high 74-106 [facility] Comment on above: Performed By: #### P OCGLUC ####[facility] Vqtjxdnevk7[address] [place] [address]Dr. Donna Malone PROF 14(COMP METB)on 023 Albumin [Mass/Vol] 2.9 g/dL Critically low 3.4-5.0 [facility] Comment on above: Performed By: #### C MP, MG ####[facility] Thdhlgclvi8[address] [place] [address]Dr. Donna Malone Albumin/Globulin [Mass ratio] 1.0 {ratio} Normal [facility] Comment on above: Performed By: #### C MP, MG ####[facility] Moxtpcciyu2260 [place] [address]Dr. Donna Malone ALP [Catalytic activity/Vol] 38 U/L Critically low 46-116 [facility] Comment on above: Performed By: #### C MP, MG ####[facility] Incvilorpk6460 [place] [address]Dr. Donna Malone ALT [Catalytic activity/Vol] 13 U/L Critically low 16-63 [facility] Comment on above: Performed By: #### C MP, MG ####[facility] Yqynbevzxl4696 [place] [address]Dr. Donna Malone Anion gap [Moles/Vol] 11.8 mmol/L Normal [facility] Comment on above: Performed By: #### C MP, MG ####[facility] Wxboexbzzs37[address] [place], [place] [address]Dr. Donna Malone AST [Catalytic activity/Vol] 15 U/L Normal 15-37 [facility] Comment on above: Performed By: #### C MP, MG ####[facility] Ezfkxzzbsb59[address] [place], [place] [address]Dr. Donna Malone Bilirubin [Mass/Vol] 0.4 mg/dL Normal 0.2-1.0 [facility] Comment on above: Performed By: #### C MP, MG ####[facility] Nrehkshaif0655[address] [place], [place] [address]Dr. Donna Malone Calcium [Mass/Vol] 8.2 mg/dL Critically low 8.5-10.1 [facility] Comment on above: Performed By: #### C MP, MG ####[facility] Ecypoaubhh3937[address] [place], [place] [address]Dr. Donna Malone Chloride [Moles/Vol] 111 mmol/L Critically high 98-107 [facility] Comment on above: Performed By: #### C MP, MG ####[facility] Wodyfubdxy9[address] [place], [place] [address]Dr. Donna Malone CO2 [Moles/Vol] 27.9 mmol/L Normal 21.0-32.0 [facility] Comment on above: Performed By: #### C MP, MG ####[facility] Pnmpskgeob40[address] [place], [place] [address]Dr. Donna Malone Creatinine [Mass/Vol] 0.99 mg/dL Normal 0.70-1.30 [facility] Comment on above: Performed By: #### C MP, MG ####[facility] Dafrgfbzlf75[address] [place] [address]Dr. Donna Malone EGFR-AF LIBERIAN >60 Normal >=60 [facility] Comment on above: Performed By: #### C MP, MG ####[facility] Jjppbjijfp24[address] [place] [address]Dr. Donna Malone EGFR-NON AF LIBERIAN >60 Normal >=60 [facility] Comment on above: Performed By: #### C MP, MG ####[facility] Nbizedaiyl7211 [place] [address]Dr. Donna Faisal Globulin (S) [Mass/Vol] 2.9 g/dL Normal [facility] Comment on above: Performed By: #### C MP, MG ####[facility] Cgedifuueo[address] [place] [address]Dr. Rubyyvan Faisal Glucose [Mass/Vol] 88 mg/dL Normal 74-106 [facility] Comment on above: Performed By: #### C MP, MG ####[facility] Uoyrbbrxub1348 [place] [address]Dr. Donna Faisal Potassium [Moles/Vol] 3.7 mmol/L Normal 3.5-5.1 [facility] Comment on above: Performed By: #### C MP, MG ####[facility] Ynwjbqrakb3862 [place] [address]Dr. Rubyyvan Faisal Protein [Mass/Vol] 5.8 g/dL Critically low 6.4-8.2 [facility] Comment on above: Performed By: #### C MP, MG ####[facility] Myqmccdjzy9005 [place] [address]Dr. Rubyyvan Malone Sodium [Moles/Vol] 147 mmol/L Critically high 136-145 [facility] Comment on above: Performed By: #### C MP, MG ####[facility] Zgtktjqngt3891 [place] [address]Dr. Donna Malone Urea nitrogen [Mass/Vol] 12.0 mg/dL Normal 7.0-18.0 [facility] Comment on above: Performed By: #### C MP, MG ####[facility] Mhbilgqpmx0123 [place] [address]Dr. Donna Malone Urea nitrogen/Creatinine [Mass ratio] 12.1 mg/mg Normal [facility] Comment on above: Performed By: #### C MP, MG ####[facility] Umnjshmqbq7[address] [place] [address]Dr. Donna Malone ACETONE SERUMon 11-14-2022 ACETONE Negative Normal NEGATIVE [facility] Comment on above: Performed By: #### A CETON ####[facility] H[address]hisvpvbr[address] [place], [place] [address]Dr. Donna Malone AMMONIAon 11-14-2022 Ammonia (P) [Moles/Vol] 17 umol/L Normal [facility] Comment on above: Performed By: #### A MM ####[facility] [address]rmxwivs[address] [address] [place], [place] [address]Dr. Donna Malone BLOOD GASES BTYon 11-14-2022 02 MODE ROOM AIR Normal [facility] Comment on above: Performed By: #### A BG ####[facility] Wmjzayjdwr13[address] [place], [place] [address]Dr. Donna Malone ALLENS TEST Positive Normal [facility] Comment on above: Performed By: #### A BG ####[facility] Hthzwdhons4[address] [place], [place] [address]Dr. Donna Malone Base excess Calc (Bld) [Moles/Vol] 1.1 mmol/L Normal -2.0-2.0 [facility] Comment on above: Performed By: #### A BG ####[facility] Jwgzfuqcni9240[address] [place], [place] [address]Dr. Donna Malone BIPAP PRESSURE Normal [facility] Comment on above: Performed By: #### A BG ####[facility] Nfkolpzmxv5[address] [place], [place] [address]Dr. Donna Malone CPAP Normal [facility] Comment on above: Performed By: #### A BG ####[facility] Azqxabzdin[address] [place], [place] [id number]. Donna Malone FIO2 Normal [facility] Comment on above: Performed By: #### A BG ####[facility] Npgsjlpocl0613[address] [place], [place] [address]Dr. Donna Malone HCO3 (Bld) [Moles/Vol] 26.0 mmol/L Normal 22.0-26.0 [facility] Comment on above: Performed By: #### A BG ####[facility] Blsilaxvil0775[address] [place], [place] [address]Dr. Donna Malone LPM [facility] Comment on above: Performed By: #### A BG ####[facility] Rvrcxjakrd2008[address] [place], [place] [address]Dr. Donna Malone MINUTE VOLUME Normal [facility] Comment on above: Performed By: #### A BG ####[facility] Slwbdvzxcl639[address] [place], [place] [address]Dr. Donna Malone Oxygen (Bld) [Partial pressure] 62.0 mm[Hg] Critically low 80.0-100.0 [facility] Comment on above: Performed By: #### A BG ####[facility] Corlmgzjkk4009[address] [place], [place] [address]Dr. Donna Malone Oxygen saturation in Blood 91.9 % Critically low 95.0-100.0 [facility] Comment on above: Performed By: #### A BG ####[facility] Daxpwfcckx9680[address] [place], [place] [address]Dr. Donna Malone PCO2 42.8 mmHg Normal 35.0-45.0 [facility] Comment on above: Performed By: #### A BG ####[facility] Yqantagess079[address] [place], [place] [address]Dr. Donna Malone PEEP [facility] Comment on above: Performed By: #### A BG ####[facility] Wanxwgqyah9454[address] [place], [place] [address]Dr. Donna Malone pH (Bld) 7.392 [pH] Normal 7.350-7.45 0 [facility] Comment on above: Performed By: #### A BG ####[facility] [address]wr[address] [place] [address]Dr. Donna Malone PIP Normal [facility] Comment on above: Performed By: #### A BG ####[facility] Foawydfaeq6050[address] [place], [place] [address]Dr. Donna Malone PS Normal [facility] Comment on above: Performed By: #### A BG ####[facility] Aqpgdulhmm5977[address] [place], [place] [address]Dr. Donna Malone PUNCTURE SITE LR [facility] Comment on above: Performed By: #### A BG ####[facility] Ehpjghpnls8043[address] [place], [place] [address]Dr. Donna Malone RATE Cement [facility] Comment on above: Performed By: #### A BG ####[facility] Ysigjntugy0553[address] [place], [place] [address]Dr. Donna Malone VENT MODE [facility] Comment on above: Performed By: #### A BG ####[facility] Hmvbjaxawn0828[address] [place], [place] [address]Dr. Donna Malone VT [facility] Comment on above: Performed By: #### A BG ####[facility] Agqnpkqqxk69[address] [place], [place] [address]Dr. Donna Malone BNPon 11-14-2022 Natriuretic peptide B (Bld) [Mass/Vol] 148.0 pg/mL Normal <=900.0 [facility] Comment on above: Performed By: #### B CARPET OR RUG LAYER HELPER, CMP, HSTROPN ####[facility] Lkmsqhquhb3556[address] [place], [place] [address]Dr. Donna Malone CBC AUTO DIFFon 11-14-2022 BASO # 0.0 103/ul Normal 0.0-0.1 [facility] Comment on above: Performed By: #### C BC ####[facility] Yytpwclecb8599[address] [place], [place] [address]Dr. Donna Malone Basophils/100 WBC (Bld) 0.5 % Normal 0.2-2.0 [facility] Comment on above: Performed By: #### C BC ####[facility] [address] [place] [address]Dr. Donna Malone EO # 0.1 103/ul Normal 0.0-0.7 [facility] Comment on above: Performed By: #### C BC ####[facility] Cghnjtpspl9658[address] [place], [place] [address]Dr. Donna Malone Eosinophils/100 WBC (Bld) 0.6 % Critically low 0.9-7.0 [facility] Comment on above: Performed By: #### C BC ####[facility] Guqdxjxcxn5658[address] [place], [place] [address]Dr. Donna Malone Erythrocyte distribution width (RBC) [Ratio] 14.8 % Normal 11.0-15.0 [facility] Comment on above: Performed By: #### C BC ####[facility] Vdddpnywft3207[address] [place], [place] [address]Dr. Donna Malone Hematocrit (Bld) [Volume fraction] 41.9 % Critically low 42.0-54.0 [facility] Comment on above: Performed By: #### C BC ####[facility] Paqukqfdtu8536[address] [place], [place] [address]Dr. Donna Malone Hemoglobin (Bld) [Mass/Vol] 13.6 g/dL Critically low 14.0-18.0 [facility] Comment on above: Performed By: #### C BC ####[facility] Viulgbwiph4318[address] [place], [place] [address]Dr. Donna Faisal IG # 0.01 10e3/ul Normal 0.00-0.03 [facility] Comment on above: Performed By: #### C BC ####[facility] Hpbdleyyph8185[address] [place], [place] [address]Dr. Donna Malone IG % 0.1 % Normal 0.0-0.5 [facility] Comment on above: Performed By: #### C BC ####[facility] Uihhexmkyh4999[address] [place], [place] [address]Dr. Rubyyvan Malone LYMPH # 1.7 103/ul Normal 1.2-3.8 [facility] Comment on above: Performed By: #### C BC ####[facility] [address] [place] [address]Dr. Donna Faisal Lymphocytes/100 WBC (Bld) 21.2 % Normal 20.5-60.0 [facility] Comment on above: Performed By: #### C BC ####[facility] [address]scs[address] [place] [address]Dr. Donna Faisal MANUAL DIFF REQ NO Normal [facility] Comment on above: Performed By: #### C BC ####[facility] Jlo[address]zuxbk[address] [place] [address]Dr. Donna Faisal MCH (RBC) [Entitic mass] 29.2 pg Normal 25.9-34.0 [facility] Comment on above: Performed By: #### C BC ####[facility] Bnujfhedsv2345[address] [place], [place] [address]Dr. Donna Faisal MCHC (RBC) [Mass/Vol] 32.5 g/dL Normal 29.9-35.2 [facility] Comment on above: Performed By: #### C BC ####[facility] [address]nemzk30[address] [place] [address]Dr. Rubyyvan Malone MCV (RBC) [Entitic vol] 90.1 fL Normal 80.0-94.0 [facility] Comment on above: Performed By: #### C BC ####[facility] Ugojvjnfsh8970[address] [place], [place] [address]Dr. Donna Malone MONO # 0.4 103/ul Normal 0.3-0.8 [facility] Comment on above: Performed By: #### C BC ####[facility] [address]ro[address]inku[address] [place] [address]Dr. Rubyyvan Malone Monocytes/100 WBC (Bld) 5.5 % Normal 1.7-12.0 [facility] Comment on above: Performed By: #### C BC ####[facility] Swmnretdmo0856[address] [place], [place] [address]Dr. Donna Malone NEUT # 5.7 103/ul Normal 1.4-6.5 [facility] Comment on above: Performed By: #### C BC ####[facility] [address]va[address] [place] [address]Dr. Donna Malone Neutrophils/100 WBC (Bld) 72.1 % Normal 43.0-75.0 [facility] Comment on above: Performed By: #### C BC ####[facility] R[address] [place] [address]Dr. Donna Malone Platelet mean volume (Bld) [Entitic vol] 11.5 fL Normal 9.5-13.5 [facility] Comment on above: Performed By: #### C BC ####[facility] V[address] [place] [address]Dr. Donna Malone PLT 193 103/ul Normal 150-450 [facility] Comment on above: Performed By: #### C BC ####[facility] Aputpzjnht99[address] [place] [address]Dr. Donna Malone RBC 4.65 106/ul Critically low 4.70-6.10 [facility] Comment on above: Performed By: #### C BC ####[facility] Qhqfromdbp65[address] [place], [place] [address]Dr. Donna Malone WBC 7.9 103/ul Normal 4.0-11.0 [facility] Comment on above: Performed By: #### C BC ####[facility] Xozlqipxry4163[address] [place], [place] [address]Dr. Donna Malone CT HEAD WO CONon 11-14-2022 CT HEAD WO CON Normal [facility] CULTURE BLOODon 11-14-2022 Microscopic examination of blood, culture Culture Observations: NO GROWTH AT 5 DAYS. Normal [facility] Comment on above: Performed By: #### B LDCX2 ####[facility] [address] [place] [address]Dr. Donna Malone Microscopic examination of blood, culture Culture Observations: NO GROWTH AT 5 DAYS. Normal [facility] Comment on above: Performed By: #### B LDCX1 ####[facility] V[address]pae[address] [place] [address]Dr. Donna Faisal Covid-19 PCR (CVDTB)on SARS-CoV-2 (COVID-19) RNA JOSÉ MIGUEL+probe Ql (Unsp spec) Not detected Normal NOT DETECTED [facility] Comment on above: Result Comment: When [...] for this test is supported by the [place] of [employer] and [employer] Service's declaration that [...] be used). Performed By: #### C VDTB ####[facility] Hdnfvwrhie4[address] [place], [place] [address]Dr. yvan Malone DRUG SCREEN RAPID (URINE)on 11-14-2022 AMP Negative Normal NEGATIVE [facility] Comment on above: Performed By: #### D SHARONA ERUR ####[facility] Ipthwmyoec4[address] [place], [place] [address]Dr. Donna Malone BAR Negative Normal NEGATIVE [facility] Comment on above: Performed By: #### D SHARONA ERUR ####[facility] [address] [place] [address]Dr. Donna Malone BUP Negative Normal NEGATIVE [facility] Comment on above: Performed By: #### D SHARONA ERUR ####[facility] Qtvnuipcjo5083 [place] [address]Dr. Donna Malone BZO Negative Normal NEGATIVE [facility] Comment on above: Performed By: #### D SHARONA ERUR ####[facility] Gmsgsmytvu[address] [place] [address]Dr. Donna Malone EVONNE Negative Normal NEGATIVE [facility] Comment on above: Performed By: #### D RUGRPD, ERUR ####[facility] [address]weksed[address] [place] [address]Dr. Donna Malone CUT-OFFS SEE BELOW Normal [facility] Comment on above: Result Comment: AMP [...] ng/mL Performed By: #### Calvin TABOR, ERUR ####[facility] Gjwftkvatq9[address] [place], [place] [address]Dr. Donna Malone DRUG CUT HEADER DRUG CLASS TEST SYST EM CUT-OFF CONCENTRATIONS ARE FOLLOWS: Normal [facility] Comment on above: Performed By: #### Calvin TABOR, ERUR ####[facility] Tiwnglnlll27[address] [place], [place] [address]Dr. Donna Malone mAMP Negative Normal NEGATIVE [facility] Comment on above: Performed By: #### Calvin TABOR, ERUR ####[facility] Czpxvwbbet46[address] [place], [place] [address]Dr. Donna Malone MTD Negative Normal NEGATIVE [facility] Comment on above: Performed By: #### Calvin TABOR, ERUR ####[facility] Kelnwhyzry0[address] [place], [place] [address]Dr. Donna Malone OPI Negative Normal NEGATIVE [facility] Comment on above: Performed By: #### Calvin TABOR, ERUR ####[facility] [address]iswasdg[address] [place] [address]Dr. Donna Malone OXY Negative Normal NEGATIVE [facility] Comment on above: Performed By: #### Calvin TABOR, ERUR ####[facility] [address] [place] [address]Dr. Donna Malone PCP Negative Normal NEGATIVE [facility] Comment on above: Performed By: #### Calvin TABOR, ERUR ####[facility] [address] [place] [address]Dr. Donna Malone PPX Negative Normal NEGATIVE [facility] Comment on above: Performed By: #### Calvin TABOR, ERUR ####[facility] [address] [place] [address]Dr. Donna Malone TCA Positive Abnormal NEGATIVE [facility] Comment on above: Performed By: #### Calvin TABOR, ERUR ####[facility] [address] [place] [address]Dr. Donna Malone THC Negative Normal NEGATIVE [facility] Comment on above: Performed By: #### Calvin TABOR, ERUR ####[facility] [address] [place] [address]Dr. Donna Malone ER URINE PROFILEon 3 Bilirubin Ql (U) MODERATE Abnormal NEGATIVE [facility] Comment on above: Performed By: #### Calvin TABOR, ERUR ####[facility] Bdrxnrcefb2669[address] [place], [place] [address]Dr. Donna Malone Clarity (U) CLEAR Normal CLEAR [facility] Comment on above: Performed By: #### Calvin TABOR, ERUR ####[facility] [address]vh[address] [place] [address]Dr. Donna Malone Color (U) DK. YELLOW Normal YELLOW [facility] Comment on above: Performed By: #### Calvin TABOR, ERUR ####[facility] [address] [place] [address]Dr. Donna JARRELLAHD A micrscopic examina tion will be performed if indicated. Normal [facility] Comment on above: Performed By: #### Calvin TABOR, ERUR ####[facility] Yx[address]igueb[address] [place] [address]Dr. Donna Malone Glucose Ql (U) Negative Normal NEGATIVE [facility] Comment on above: Performed By: #### Calvin TABOR, ERUR ####[facility] Lvfolnesxo16[address] [place] [address]Dr. Donna Malone Hemoglobin Ql (U) Negative Normal NEGATIVE [facility] Comment on above: Performed By: #### Calvin TABOR, ERUR ####[facility] Ympkhufanu260[address] [place] [address]Dr. Donna Malone Ketones Ql (U) 40 mg/dl Abnormal NEGATIVE [facility] Comment on above: Performed By: #### Calvin TABOR, ERUR ####[facility] Burqzikgnk[address] [place], [place] [address]Dr. Donna Malone LEUKOCYTES Negative Normal NEGATIVE [facility] Comment on above: Performed By: #### Calvin TABOR, ERUR ####[facility] Wfkgrvabci8412[address] [place], [place] [address]Dr. Donna Malone Nitrite Ql (U) Negative Normal NEGATIVE [facility] Comment on above: Performed By: #### Calvin TABOR ERUR ####[facility] Xwpkfqainw34[address] [place], [place] [address]Dr. Donna Malone pH (U) 6.0 [pH] Normal 5-9 [facility] Comment on above: Performed By: #### Calvin TABOR, ERUR ####[facility] Msotbcygyt6[address] [place], [place] [address]Dr. Donna Malone SPEC GRAVITY 1.030 Abnormal 1.005-<=1. 025 [facility] Comment on above: Performed By: #### aClvin TABOR ERUR ####[facility] Qtnjsdcoft7[address] [place], [place] [address]Dr. Donna Malone UA PROTEIN TRACE Normal NEGATIVE/ TRACE [facility] Comment on above: Performed By: #### Calvin TABOR ERUR ####[facility] Iqecexchrw3632[address] [place], [place] [address]Dr. Donna Malone UR MICRO IND NOT INDICATED Normal [facility] Comment on above: Performed By: #### Calvin TABOR, ERUR ####[facility] Qmujyxuspk69[address] [place], [place] [address]Dr. Donna Malone Urobilinogen Qn (U) 1.0 {Jermain'U}/dL Normal 0.2 - 1. 0 [facility] Comment on above: Performed By: #### D SHARONA, ERUR ####[facility] [address] [place] [address]Dr. Donna Malone LACTATE/LACTIC ACIDon 2022 Lactate [Moles/Vol] 1.6 mmol/L Normal 0.4-1.9 [facility] Comment on above: Performed By: #### L ACT ####[facility] [address]srpztss[address] [place] [address]Dr. Donna Malone PROF 14(COMP METB)on 023 Albumin [Mass/Vol] 3.4 g/dL Normal 3.4-5.0 [facility] Comment on above: Performed By: #### B CARPET OR RUG LAYER HELPER, CMP, HSTROPN ####[facility] Pwzdsmkftv[address] [place] [address]Dr. Donna Malone Albumin/Globulin [Mass ratio] 1.0 {ratio} Normal [facility] Comment on above: Performed By: #### B CARPET OR RUG LAYER HELPER, CMP, HSTROPN ####[facility] A[address]xvvwdhp35[address] [place] [address]Dr. Donna Malone ALP [Catalytic activity/Vol] 48 U/L Normal 46-116 [facility] Comment on above: Performed By: #### B CARPET OR RUG LAYER HELPER, CMP, HSTROPN ####[facility] V[address]pdaunkk28[address] [place] [address]Dr. Donna Malone ALT [Catalytic activity/Vol] 13 U/L Critically low 16-63 [facility] Comment on above: Performed By: #### B CARPET OR RUG LAYER HELPER, CMP, HSTROPN ####[facility] Vgdlogqdhg40[address] [place] [address]Dr. Donna Malone Anion gap [Moles/Vol] 13.2 mmol/L Normal [facility] Comment on above: Performed By: #### B CARPET OR RUG LAYER HELPER, CMP, HSTROPN ####[facility] Awufttfhiy69[address] [place] [address]Dr. Donna Malone AST [Catalytic activity/Vol] 13 U/L Critically low 15-37 [facility] Comment on above: Performed By: #### B CARPET OR RUG LAYER HELPER, CMP, HSTROPN ####[facility] Z[address]vdeoegr4[address] [place] [address]Dr. Donna Malone Bilirubin [Mass/Vol] 0.4 mg/dL Normal 0.2-1.0 [facility] Comment on above: Performed By: #### B CARPET OR RUG LAYER HELPER, CMP, HSTROPN ####[facility] Xvdzvhaywo3[address] [place] [address]Dr. Donna Malone Calcium [Mass/Vol] 9.2 mg/dL Normal 8.5-10.1 [facility] Comment on above: Performed By: #### B CARPET OR RUG LAYER HELPER, CMP, HSTROPN ####[facility] Rtk[address]tlqbdp[address] [place] [address]Dr. Donna Malone Chloride [Moles/Vol] 108 mmol/L Critically high 98-107 [facility] Comment on above: Performed By: #### B CARPET OR RUG LAYER HELPER, CMP, HSTROPN ####[facility] Trzgnkksvv67[address] [place] [address]Dr. Donna Malone CO2 [Moles/Vol] 27.0 mmol/L Normal 21.0-32.0 [facility] Comment on above: Performed By: #### B CARPET OR RUG LAYER HELPER, CMP, HSTROPN ####[facility] Vcmazthbxj[address] [place] [address]Dr. Donna Malone Creatinine [Mass/Vol] 1.14 mg/dL Normal 0.70-1.30 [facility] Comment on above: Performed By: #### B CARPET OR RUG LAYER HELPER, CMP, HSTROPN ####[facility] [address]ff[address]zg[address] [place] [address]Dr. Donna Malone EGFR-AF LIBERIAN >60 Normal >=60 [facility] Comment on above: Performed By: #### B CARPET OR RUG LAYER HELPER, CMP, HSTROPN ####[facility] Gdsbphqmji[address] [place] [address]Dr. Donna Malone EGFR-NON AF LIBERIAN >60 Normal >=60 [facility] Comment on above: Performed By: #### B CARPET OR RUG LAYER HELPER, CMP, HSTROPN ####[facility] Hgsinibvax76[address] [place] [address]Dr. Donna Malone Globulin (S) [Mass/Vol] 3.5 g/dL Normal [facility] Comment on above: Performed By: #### B CARPET OR RUG LAYER HELPER, CMP, HSTROPN ####[facility] Xyiz[address]owhxx4[address] [place] [address]Dr. Donna Malone Glucose [Mass/Vol] 126 mg/dL Critically high 74-106 T [facility] Comment on above: Performed By: #### B CARPET OR RUG LAYER HELPER, CMP, HSTROPN ####[facility] Wddnrfowhc63[address] [place], [place] [address]Dr. Donna Malone Potassium [Moles/Vol] 4.2 mmol/L Normal 3.5-5.1 [facility] Comment on above: Performed By: #### B CARPET OR RUG LAYER HELPER, CMP, HSTROPN ####[facility] Lhncuaxsuc[address] [place], [place] [address]Dr. Donna Malone Protein [Mass/Vol] 6.9 g/dL Normal 6.4-8.2 [facility] Comment on above: Performed By: #### B CARPET OR RUG LAYER HELPER, CMP, HSTROPN ####[facility] Ffqcfckxcm10[address] [place], [place] [address]Dr. Donna Malone Sodium [Moles/Vol] 144 mmol/L Normal 136-145 [facility] Comment on above: Performed By: #### B CARPET OR RUG LAYER HELPER, CMP, HSTROPN ####[facility] Tllnbpclft[address] [place], [place] [address]Dr. Donna Malone Urea nitrogen [Mass/Vol] 17.0 mg/dL Normal 7.0-18.0 [facility] Comment on above: Performed By: #### B CARPET OR RUG LAYER HELPER, CMP, HSTROPN ####[facility] Cpmsyrszgp1265[address] [place], [place] [address]Dr. Donna Malone Urea nitrogen/Creatinine [Mass ratio] 14.9 mg/mg Normal [facility] Comment on above: Performed By: #### B CARPET OR RUG LAYER HELPER, CMP, HSTROPN ####[facility] Auyllhyher[address] [place] [address]Dr. Donna Malone TROPONIN, HIGH SENSITIVITYon 11-14-2022 HSTROP 11.2 pg/mL Normal 4.0-76.1 [facility] Comment on above: Result Comment: CUT- OFF POINTS HAVE BEEN ESTABLISHED BASED ON THE FOURTH UNIVERSAL DEFINITIONS OF MYOCARDIALINFARCTION. THE UPPER REFERENCE LIMIT (URL) OF TROPONIN, DEFINED THE 99TH PERCENTILE OFcTnI DISTRIBUTION IN A REFERENCE POPULATION, HAS BEEN CONFIRMED THE DECISION THRESHOLDFOR [place] DIAGNOSIS. Performed By: #### B CARPET OR RUG LAYER HELPER, CMP, HSTROPN ####[facility] Pnmodquzcj60[address] [place], [place] [address]Dr. Donna Malone XR CHEST 1 Von 11-14-2022 XR CHEST 1 V Normal [facility] ER URINE PROFILEon 3 Bilirubin Ql (U) Negative Normal NEGATIVE [facility] Comment on above: Performed By: #### E RUR ####[facility] Bghgkbdxex65[address] [place], [place] [address]Dr. Donna Malone Clarity (U) CLEAR Normal CLEAR [facility] Comment on above: Performed By: #### E RUR ####[facility] Vgngvtcekr[address] [place], [place] [address]Dr. Donna Malone Color (U) YELLOW Normal YELLOW [facility] Comment on above: Performed By: #### E RUR ####[facility] Eoankqvnbw33[address] [place], [place] [address]Dr. Donna Malone ERUAHD A micrscopic examina tion will be performed if indicated. Normal [facility] Comment on above: Performed By: #### E RUR ####[facility] Lijemwimet05[address] [place], [place] [address]Dr. Donna Malone Glucose Ql (U) 250 mg/dl Abnormal NEGATIVE [facility] Comment on above: Performed By: #### E RUR ####[facility] Boswennxjt7944[address] [place], [place] [address]Dr. Donna Malone Hemoglobin Ql (U) TRACE-INTACT Abnormal NEGATIVE [facility] Comment on above: Performed By: #### E RUR ####[facility] Zqrulqenau[address] [place] [address]Dr. Donna Malone Ketones Ql (U) Negative Normal NEGATIVE [facility] Comment on above: Performed By: #### E RUR ####[facility] Agwelvtwsq4798 [place] [address]Dr. Donna Malone LEUKOCYTES Negative Normal NEGATIVE [facility] Comment on above: Performed By: #### E RUR ####[facility] [address]zaypxqzbw[address] [place], [place] [address]Dr. Donna Malone Nitrite Ql (U) Negative Normal NEGATIVE [facility] Comment on above: Performed By: #### E RUR ####[facility] Jajpaktphe40[address] [place], [place] [address]Dr. Donna Malone pH (U) 5.5 [pH] Normal 5-9 [facility] Comment on above: Performed By: #### E RUR ####[facility] Zuankzmyxq137[address] [place], [place] [address]Dr. Donna Malone SPEC GRAVITY 1.025 Normal 1.005-<=1. 025 [facility] Comment on above: Performed By: #### E RUR ####[facility] Wkxytbfrsk[address] [place], [place] [address]Dr. Donna Malone UA PROTEIN Negative Normal NEGATIVE/ TRACE [facility] Comment on above: Performed By: #### E RUR ####[facility] Tegowiofdu[address] [place], [place] [address]Dr. Donna Malone UR MICRO IND NOT INDICATED Normal [facility] Comment on above: Performed By: #### E RUR ####[facility] Pyifdkwcwo65[address] [place], [place] [address]Dr. Donna Malone Urobilinogen Qn (U) 0.2 {Jermain'U}/dL Normal 0.2 - 1. 0 [facility] Comment on above: Performed By: #### E RUR ####[facility] Xljugjlmct187[address] [place], [place] [address]Dr. Donna Malone CBC AUTO DIFFon 10-26-2022 BASO # 0.0 103/ul Normal 0.0-0.1 [facility] Comment on above: Performed By: #### C BC ####[facility] Awvmmkfznb[address] [place], [place] [address]Dr. Donna Malone Basophils/100 WBC (Bld) 0.4 % Normal 0.2-2.0 [facility] Comment on above: Performed By: #### C BC ####[facility] Rinenshbcc[address] [place], [place] [address]Dr. Donna Malone EO # 0.0 103/ul Normal 0.0-0.7 [facility] Comment on above: Performed By: #### C BC ####[facility] Zpyngubxcm1186[address] [place], [place] [address]Dr. Donna Malone Eosinophils/100 WBC (Bld) 0.0 % Critically low 0.9-7.0 The [facility] Comment on above: Performed By: #### C BC ####[facility] Tnhvchfojj29[address] [place], [place] [address]Dr. Donna Malone Erythrocyte distribution width (RBC) [Ratio] 14.5 % Normal 11.0-15.0 [facility] Comment on above: Performed By: #### C BC ####[facility] Gmjvgyjacm0528[address] [place], [place] [address]Dr. Donna Malone Hematocrit (Bld) [Volume fraction] 41.2 % Critically low 42.0-54.0 [facility] Comment on above: Performed By: #### C BC ####[facility] Suzhuexvho10[address] [place], [place] [address]Dr. Donna Malone Hemoglobin (Bld) [Mass/Vol] 13.7 g/dL Critically low 14.0-18.0 The [facility] Comment on above: Performed By: #### C BC ####[facility] Qhrolesykv0215[address] [place], [place] [address]Dr. Donna Malone IG # 0.02 10e3/ul Normal 0.00-0.03 [facility] Comment on above: Performed By: #### C BC ####[facility] Fqxlhzgtxr99[address] [place], [place] [address]Dr. Donna Malone IG % 0.2 % Normal 0.0-0.5 [facility] Comment on above: Performed By: #### C BC ####[facility] [address] [place] [address]DrElizabeth Malone LYMPH # 1.2 103/ul Normal 1.2-3.8 [facility] Comment on above: Performed By: #### C BC ####[facility] Rvqldqmape2694 [place] [address]DrElizabeth Malone Lymphocytes/100 WBC (Bld) 14.4 % Critically low 20.5-60.0 [facility] Comment on above: Performed By: #### C BC ####[facility] Grijcwdebk1128[address] [place], [place] [address]DrElizabeth Malone MANUAL DIFF REQ NO Normal [facility] Comment on above: Performed By: #### C BC ####[facility] Hccgusjlte8226[address] [place], [place] [address]DrElizabeth Malone MCH (RBC) [Entitic mass] 29.4 pg Normal 25.9-34.0 [facility] Comment on above: Performed By: #### C BC ####[facility] Pgdvusvdfw[address] [place], [place] [address]DrElizabeth Malone MCHC (RBC) [Mass/Vol] 33.3 g/dL Normal 29.9-35.2 [facility] Comment on above: Performed By: #### C BC ####[facility] Vsexbakvdi4566[address] [place], [place] [address]DrElizabeth Malone MCV (RBC) [Entitic vol] 88.4 fL Normal 80.0-94.0 [facility] Comment on above: Performed By: #### C BC ####[facility] Iauzzharef4448[address] [place], [place] [address]DrElizabeth Malone MONO # 0.2 103/ul Critically low 0.3-0.8 [facility] Comment on above: Performed By: #### C BC ####[facility] Pbhmmfialp1449[address] [place], [place] [address]DrElizabeth Malone Monocytes/100 WBC (Bld) 2.5 % Normal 1.7-12.0 [facility] Comment on above: Performed By: #### C BC ####[facility] Ijyxnjvuxl32[address] [place] [address]Dr. Donna Malone NEUT # 6.9 103/ul Critically high 1.4-6.5 [facility] Comment on above: Performed By: #### C BC ####[facility] Strycpvyxl9041 [place] [address]Dr. Donna Malone Neutrophils/100 WBC (Bld) 82.5 % Critically high 43.0-75.0 [facility] Comment on above: Performed By: #### C BC ####[facility] Tlpgaamhua1389[address] [place], [place] [address]Dr. Donna Malone Platelet mean volume (Bld) [Entitic vol] 11.3 fL Normal 9.5-13.5 [facility] Comment on above: Performed By: #### C BC ####[facility] Wtsgdlflsm36[address] [place], [place] [address]Dr. Donna Malone PLT 241 103/ul Normal 150-450 [facility] Comment on above: Performed By: #### C BC ####[facility] Qhokxwojtg5917[address] [place], [place] [address]Dr. Donna Malone RBC 4.66 106/ul Critically low 4.70-6.10 [facility] Comment on above: Performed By: #### C BC ####[facility] Vpgbcszklz2526[address] [place], [place] [address]Dr. Donna Malone WBC 8.4 103/ul Normal 4.0-11.0 [facility] Comment on above: Performed By: #### C BC ####[facility] Fzzmygzipl5[address] [place], [place] [id number]. Donna Faisal CRPon 10-26-2022 CRP [Mass/Vol] mg/L Normal <=1.0 The [facility] Comment on above: Performed By: #### C RP, BMP ####[facility] Nzatocogry6567[address] [place], [place] [address]Dr. Rubyyvan Faisal CT LSPINE WO CONon 3 CT LSPINE WO CON Normal [facility] PROF CHEM 8 (BAS METB)on Anion gap [Moles/Vol] 11.9 mmol/L Normal [facility] Comment on above: Performed By: #### C RP, BMP ####[facility] [address]qkfpkair[address] [place] [address]Dr. Donna Malone Calcium [Mass/Vol] 9.1 mg/dL Normal 8.5-10.1 [facility] Comment on above: Performed By: #### C RP, BMP ####[facility] Lpfhuuwtet9476 [place] [address]Dr. Donna Malone Chloride [Moles/Vol] 104 mmol/L Normal 98-107 [facility] Comment on above: Performed By: #### C RP, BMP ####[facility] Phgbpxralx4516[address] [place], [place] [address]Dr. Donna Malone CO2 [Moles/Vol] 26.3 mmol/L Normal 21.0-32.0 [facility] Comment on above: Performed By: #### C RP, BMP ####[facility] Zglpxmqxfx9824[address] [place], [place] [address]Dr. Donna Malone Creatinine [Mass/Vol] 0.99 mg/dL Normal 0.70-1.30 [facility] Comment on above: Performed By: #### C RP, BMP ####[facility] Zsbpmcnosa9[address] [place], [place] [address]Dr. Rubyyvan Faisal EGFR-AF LIBERIAN >60 Normal >=60 [facility] Comment on above: Performed By: #### C RP, BMP ####[facility] Wisxjtknti37[address] [place] [address]Dr. Donna Malone EGFR-NON AF LIBERIAN >60 Normal >=60 [facility] Comment on above: Performed By: #### C RP, BMP ####[facility] Zxwacphoru4055[address] [place], [place] [address]Dr. Rubyyvan Malone Glucose [Mass/Vol] 152 mg/dL Critically high 74-106 [facility] Comment on above: Performed By: #### C RP, BMP ####[facility] Bfckxtrupl79[address] [place] [address]Dr. Donna Malone Potassium [Moles/Vol] 4.2 mmol/L Normal 3.5-5.1 [facility] Comment on above: Performed By: #### C RP, BMP ####[facility] Oppufravgy8775 [place] [address]Dr. Donna Faisal Sodium [Moles/Vol] 138 mmol/L Normal 136-145 [facility] Comment on above: Performed By: #### C RP, BMP ####[facility] Wardiejjsw1889 [place] [address]Dr. Donna Faisal Urea nitrogen [Mass/Vol] 12.0 mg/dL Normal 7.0-18.0 [facility] Comment on above: Performed By: #### C RP, BMP ####[facility] Dkrykfbhpm8324[address] [place], [place] [address]Dr. Donna Malone Urea nitrogen/Creatinine [Mass ratio] 12.1 mg/mg Normal [facility] Comment on above: Performed By: #### C RP, BMP ####[facility] Myfyfybdao5860[address] [place], [place] [address]Dr. Donna Faisal SED RATE WESTERGRENon 2022 SED RATE 57 mm/hr Critically high <=20 [facility] Comment on above: Performed By: #### S EDR ####[facility] Anhfqcavpg4985[address] [place], [place] [address]Dr. Donna Faisal CBC AUTO DIFFon 10-25-2022 BASO # 0.0 103/ul Normal 0.0-0.1 [facility] Comment on above: Performed By: #### C BC ####[facility] Stjwlweczr8495[address] [place], [place] [address]Dr. Rubyyvan Malone Basophils/100 WBC (Bld) 0.4 % Normal 0.2-2.0 [facility] Comment on above: Performed By: #### C BC ####[facility] Ylfpphnzxm7613[address] [place], [place] [address]Dr. Donna Malone EO # 0.0 103/ul Normal 0.0-0.7 [facility] Comment on above: Performed By: #### C BC ####[facility] Fpszqxhqhe88[address] [place] [address]Dr. Donna Malone Eosinophils/100 WBC (Bld) 0.0 % Critically low 0.9-7.0 [facility] Comment on above: Performed By: #### C BC ####[facility] Cdntsheacl0055[address] [place], [place] [address]Dr. Donna Malone Erythrocyte distribution width (RBC) [Ratio] 14.5 % Normal 11.0-15.0 [facility] Comment on above: Performed By: #### C BC ####[facility] Roqbayfwyy755[address] [place], [place] [address]Dr. Donna Malone Hematocrit (Bld) [Volume fraction] 43.8 % Normal 42.0-54.0 [facility] Comment on above: Performed By: #### C BC ####[facility] Forawwtrey9007[address] [place], [place] [address]Dr. Donna Malone Hemoglobin (Bld) [Mass/Vol] 14.2 g/dL Normal 14.0-18.0 [facility] Comment on above: Performed By: #### C BC ####[facility] Gpjpfcujdj033[address] [place], [place] [address]Dr. Donna Malone IG # 0.01 10e3/ul Normal 0.00-0.03 [facility] Comment on above: Performed By: #### C BC ####[facility] Usjgdwnsnn4176[address] [place], [place] [address]Dr. Donna Malone IG % 0.1 % Normal 0.0-0.5 [facility] Comment on above: Performed By: #### C BC ####[facility] Kfcglhwbme8936[address] [place], [place] [address]Dr. Donna Malone LYMPH # 1.4 103/ul Normal 1.2-3.8 [facility] Comment on above: Performed By: #### C BC ####[facility] Laduiukjbf6312[address] [place], [place] [address]Dr. Donna Malone Lymphocytes/100 WBC (Bld) 17.1 % Critically low 20.5-60.0 [facility] Comment on above: Performed By: #### C BC ####[facility] E[address]wuhdd[address] [place] [address]DrElizabeth Malone MANUAL DIFF REQ NO Normal [facility] Comment on above: Performed By: #### C BC ####[facility] Yyuzgqzexf5532 [place] [address]Dr. Donna Malone MCH (RBC) [Entitic mass] 29.1 pg Normal 25.9-34.0 [facility] Comment on above: Performed By: #### C BC ####[facility] Qiynashgrp2620 [place] [address]Dr. Donna Malone MCHC (RBC) [Mass/Vol] 32.4 g/dL Normal 29.9-35.2 [facility] Comment on above: Performed By: #### C BC ####[facility] Yrpgrgbvcz4624[address] [place], [place] [address]Dr. Donna Malone MCV (RBC) [Entitic vol] 89.8 fL Normal 80.0-94.0 [facility] Comment on above: Performed By: #### C BC ####[facility] Cycmioqgcw2295[address] [place], [place] [address]DrElizabeth Malone MONO # 0.3 103/ul Normal 0.3-0.8 [facility] Comment on above: Performed By: #### C BC ####[facility] Orgivmvgxw8313[address] [place], [place] [address]DrElizabeth Malone Monocytes/100 WBC (Bld) 4.1 % Normal 1.7-12.0 [facility] Comment on above: Performed By: #### C BC ####[facility] Fyoeosjeyt427[address] [place], [place] [address]DrElizabeth Malone NEUT # 6.3 103/ul Normal 1.4-6.5 [facility] Comment on above: Performed By: #### C BC ####[facility] Tlzmnevzgk27[address] [place], [place] [address]DrElizabeth Malone Neutrophils/100 WBC (Bld) 78.3 % Critically high 43.0-75.0 [facility] Comment on above: Performed By: #### C BC ####[facility] Caebmbjobl2917 [place] [address]Dr. Rubyyvan Faisal Platelet mean volume (Bld) [Entitic vol] 11.3 fL Normal 9.5-13.5 [facility] Comment on above: Performed By: #### C BC ####[facility] Ueuwyrbfly2695 [place] [address]Dr. Rubyyvan Faisal PLT 271 103/ul Normal 150-450 [facility] Comment on above: Performed By: #### C BC ####[facility] Ccrsawkkfi4709[address] [place], [place] [address]Dr. Donna Malone RBC 4.88 106/ul Normal 4.70-6.10 [facility] Comment on above: Performed By: #### C BC ####[facility] Ycthwvdmei376[address] [place], [place] [address]Dr. Donna Malone WBC 8.0 103/ul Normal 4.0-11.0 [facility] Comment on above: Performed By: #### C BC ####[facility] Tsbbofvhre1280[address] [place], [place] [address]Dr. Donna Malone ER URINE PROFILEon 3 Bilirubin Ql (U) Negative Normal NEGATIVE [facility] Comment on above: Performed By: #### E RUR ####[facility] Cmjcfadruw2230[address] [place], [place] [address]Dr. Donna Malone Clarity (U) CLEAR Normal CLEAR [facility] Comment on above: Performed By: #### E RUR ####[facility] Lbpyjvnnvx4862[address] [place], [place] [address]Dr. Donna Malone Color (U) YELLOW Normal YELLOW [facility] Comment on above: Performed By: #### E RUR ####[facility] Cjgldoztmz5109[address] [place], [place] [address]Dr. Donna Malone ERUAHD A micrscopic examina tion will be performed if indicated. Normal The [facility] Comment on above: Performed By: #### E RUR ####[facility] Vxywwbefzv59[address] [place] [address]Dr. Donna Malone Glucose Ql (U) 100 mg/dl Abnormal NEGATIVE [facility] Comment on above: Performed By: #### E RUR ####[facility] Aluszjwohh065[address] [place], [place] [address]Dr. Donna Malone Hemoglobin Ql (U) Negative Normal NEGATIVE [facility] Comment on above: Performed By: #### E RUR ####[facility] Bswnaicmod1087[address] [place], [place] [address]Dr. Donna Malone Ketones Ql (U) TRACE Abnormal NEGATIVE [facility] Comment on above: Performed By: #### E RUR ####[facility] Bnqkulzeeu48[address] [place], [place] [address]Dr. Donna Malone LEUKOCYTES Negative Normal NEGATIVE [facility] Comment on above: Performed By: #### E RUR ####[facility] Kqhiookyim08[address] [place], [place] [address]Dr. Donna Malone Nitrite Ql (U) Negative Normal NEGATIVE [facility] Comment on above: Performed By: #### E RUR ####[facility] Nkcceykvvp0357[address] [place], [place] [address]Dr. Donna Malone pH (U) 6.0 [pH] Normal 5-9 [facility] Comment on above: Performed By: #### E RUR ####[facility] Gkdfiligfe2170[address] [place], [place] [address]Dr. Donna Malone SPEC GRAVITY >=1.030 Abnormal 1.005-<=1. 025 [facility] Comment on above: Performed By: #### E RUR ####[facility] Buzqalofov0562[address] [place], [place] [address]Dr. Donna Malone UA PROTEIN Negative Normal NEGATIVE/ TRACE [facility] Comment on above: Performed By: #### E RUR ####[facility] Yhruhsnkyf1802[address] [place], [place] [address]Dr. Donna Malone UR MICRO IND NOT INDICATED Normal [facility] Comment on above: Performed By: #### E RUR ####[facility] Ihzekclbht70[address] [place], [place] [address]Dr. Donna Malone Urobilinogen Qn (U) 0.2 {Jermain'U}/dL Normal 0.2 - 1. 0 [facility] Comment on above: Performed By: #### E RUR ####[facility] Kdxzftwovy5[address] [place] [address]Dr. Donna Malone PROF CHEM 8 (BAS METB)on Anion gap [Moles/Vol] 16.4 mmol/L Normal [facility] Comment on above: Performed By: #### B MP ####[facility] Lacpaunilt6429 [place] [address]Dr. Donna Malone Calcium [Mass/Vol] 9.4 mg/dL Normal 8.5-10.1 [facility] Comment on above: Performed By: #### B MP ####[facility] Qcwpffhvke4717 [place] [address]Dr. Donna Malone Chloride [Moles/Vol] 103 mmol/L Normal 98-107 [facility] Comment on above: Performed By: #### B MP ####[facility] Sjvjbdpkyu9584 [place] [address]Dr. Donna Malone CO2 [Moles/Vol] 23.7 mmol/L Normal 21.0-32.0 [facility] Comment on above: Performed By: #### B MP ####[facility] Wxksbywqtu1862 [place] [address]Dr. Donna Malone Creatinine [Mass/Vol] 1.12 mg/dL Normal 0.70-1.30 [facility] Comment on above: Performed By: #### B MP ####[facility] Ridqgvtrfl8837 [place] [address]Dr. Donna Malone EGFR-AF LIBERIAN >60 Normal >=60 [facility] Comment on above: Performed By: #### B MP ####[facility] Nnpwisjqdz4311 [place] [address]Dr. Donna Malone EGFR-NON AF LIBERIAN >60 Normal >=60 [facility] Comment on above: Performed By: #### B MP ####[facility] Vrsujocnbz[address] [place] [address]Dr. Donna Malone Glucose [Mass/Vol] 170 mg/dL Critically high 74-106 T [facility] Comment on above: Performed By: #### B MP ####[facility] Xjnohmjint2091 [place] [address]Dr. Donna Malone Potassium [Moles/Vol] 4.1 mmol/L Normal 3.5-5.1 [facility] Comment on above: Performed By: #### B MP ####[facility] Dqexvdmszc0540 [place] [address]Dr. Donna Malone Sodium [Moles/Vol] 139 mmol/L Normal 136-145 [facility] Comment on above: Performed By: #### B MP ####[facility] Efreajpnlb2804 [place] [address]Dr. Donna Malone Urea nitrogen [Mass/Vol] 9.0 mg/dL Normal 7.0-18.0 [facility] Comment on above: Performed By: #### B MP ####[facility] Owvxdxlpgr86[address] [place], [place] [address]Dr. Donna Malone Urea nitrogen/Creatinine [Mass ratio] 8.0 mg/mg Normal [facility] Comment on above: Performed By: #### B MP ####[facility] Bwhvrylody4340 [place] [address]Dr. Donna Malone ACETONE SERUMon 08-10-2022 ACETONE Negative Normal NEGATIVE [facility] Comment on above: Performed By: #### A CETON ####[facility] Aibilpnqze3104 [place] [address]Dr. Donna Malone CBC AUTO DIFFon 08-10-2022 BASO # 0.1 103/ul Normal 0.0-0.1 [facility] Comment on above: Performed By: #### C BC ####[facility] Dhsyxcowms6438 [place] [address]Dr. Donna Faisal Basophils/100 WBC (Bld) 0.7 % Normal 0.2-2.0 [facility] Comment on above: Performed By: #### C BC ####[facility] Ilruxqhxdn6[address] [place] [address]Dr. Donna Malone EO # 0.2 103/ul Normal 0.0-0.7 [facility] Comment on above: Performed By: #### C BC ####[facility] Zrtanvehau18[address] [place] [address]Dr. Donna Malone Eosinophils/100 WBC (Bld) 2.0 % Normal 0.9-7.0 [facility] Comment on above: Performed By: #### C BC ####[facility] Mlmcwfkdic2232 [place] [address]Dr. Donna Malone Erythrocyte distribution width (RBC) [Ratio] 14.3 % Normal 11.0-15.0 [facility] Comment on above: Performed By: #### C BC ####[facility] Lpzsibkgzm10[address] [place], [place] [address]Dr. Donna Malone Hematocrit (Bld) [Volume fraction] 37.3 % Critically low 42.0-54.0 [facility] Comment on above: Performed By: #### C BC ####[facility] Szmfbhedra023[address] [place], [place] [address]Dr. Donna Malone Hemoglobin (Bld) [Mass/Vol] 12.1 g/dL Critically low 14.0-18.0 [facility] Comment on above: Performed By: #### C BC ####[facility] Wzthrbwili4899 [place] [address]Dr. Donna Malone IG # 0.03 10e3/ul Normal 0.00-0.03 [facility] Comment on above: Performed By: #### C BC ####[facility] Vksgqatcqs7369 [place] [address]Dr. Donna Malone IG % 0.4 % Normal 0.0-0.5 [facility] Comment on above: Performed By: #### C BC ####[facility] Hjugvxadzm743[address] [place], [place] [address]Dr. Donna Malone LYMPH # 1.3 103/ul Normal 1.2-3.8 [facility] Comment on above: Performed By: #### C BC ####[facility] Zscefejcej1396 [place] [address]Dr. Donna Malone Lymphocytes/100 WBC (Bld) 18.3 % Critically low 20.5-60.0 [facility] Comment on above: Performed By: #### C BC ####[facility] Mqifbneqee7[address] [place] [address]Dr. Donna Malone MANUAL DIFF REQ NO Normal [facility] Comment on above: Performed By: #### C BC ####[facility] Qyxzceetsb4787 [place] [address]Dr. Donna Malone MCH (RBC) [Entitic mass] 30.1 pg Normal 25.9-34.0 [facility] Comment on above: Performed By: #### C BC ####[facility] Jeymlgjsfo4114 [place] [address]Dr. Donna Malone MCHC (RBC) [Mass/Vol] 32.4 g/dL Normal 29.9-35.2 [facility] Comment on above: Performed By: #### C BC ####[facility] Wgyujjzcab4676 [place] [address]Dr. Donna Malone MCV (RBC) [Entitic vol] 92.8 fL Normal 80.0-94.0 [facility] Comment on above: Performed By: #### C BC ####[facility] Wuadpqdptk[address] [place] [address]Dr. Donna Faisal MONO # 0.6 103/ul Normal 0.3-0.8 [facility] Comment on above: Performed By: #### C BC ####[facility] Buajvaligc[address] [place] [address]Dr. Donna Malone Monocytes/100 WBC (Bld) 7.6 % Normal 1.7-12.0 [facility] Comment on above: Performed By: #### C BC ####[facility] Yrtjknordk4166 [place] [address]Dr. Donna Malone NEUT # 5.2 103/ul Normal 1.4-6.5 [facility] Comment on above: Performed By: #### C BC ####[facility] Zfmsyjokxn8711 [place], [place] [address]Lr. Donna Malone Neutrophils/100 WBC (Bld) 71.0 % Normal 43.0-75.0 [facility] Comment on above: Performed By: #### C BC ####[facility] Bjmqaligyj6592 [place], [place] [address]Ej. Donna Malone Platelet mean volume (Bld) [Entitic vol] 11.6 fL Normal 9.5-13.5 [facility] Comment on above: Performed By: #### C BC ####[facility] Awpginfobd9640 [place], [place] [address]Ce. Donna Malone PLT 237 103/ul Normal 150-450 [facility] Comment on above: Performed By: #### C BC ####[facility] Bwghwsudzk7652 [place], [place] [address]Dx. Donna Malone RBC 4.02 106/ul Critically low 4.70-6.10 [facility] Comment on above: Performed By: #### C BC ####[facility] Zxfwcvsjfs6347 [place], [place] [address]Xb. Donna Malone WBC 7.3 103/ul Normal 4.0-11.0 [facility] Comment on above: Performed By: #### C BC ####[facility] Dvibnshgzx1532 [place], [place] [address]Xz. Donna Malone Covid-19 PCR ([facility])on SARS-CoV-2 (COVID-19) RNA JOSÉ MIGUEL+probe Ql (Unsp spec) Not detected Normal NOT DETECTED [facility] Comment on above: Result Comment: When [...] for this test is supported by the [employer]er Drafter of Health and Human Service's declaration that [...] be used). Performed By: #### C VDTBH ####[facility] Hirrddhaem4[address] [place] [address]Dr. Donna Malone LACTATE/LACTIC ACIDon 2021 Lactate [Moles/Vol] 1.3 mmol/L Normal 0.4-1.9 [facility] Comment on above: Performed By: #### L ACT ####[facility] Yfllueiriy86[address] [place], [place] [address]Dr. Donna Malone PROF 14(COMP METB)on 022 Albumin [Mass/Vol] 2.9 g/dL Critically low 3.4-5.0 [facility] Comment on above: Performed By: #### C MARTI, HSTROPN ####[facility] Tjavdhrsge8867 [place] [address]Dr. Donna Malone Albumin/Globulin [Mass ratio] 0.7 {ratio} Normal [facility] Comment on above: Performed By: #### C MARTI, HSTROPN ####[facility] Fefogbwyrm43[address] [place], [place] [address]Dr. Donna Malone ALP [Catalytic activity/Vol] 45 U/L Critically low 46-116 [facility] Comment on above: Performed By: #### C MARTI, HSTROPN ####[facility] Brantjjrna4713 [place] [address]Dr. Donna Malone ALT [Catalytic activity/Vol] 12 U/L Critically low 16-63 [facility] Comment on above: Performed By: #### C MARTI, HSTROPN ####[facility] Xckueyfbpw6310 [place] [address]Dr. Donna Malone Anion gap [Moles/Vol] 10.9 mmol/L Normal [facility] Comment on above: Performed By: #### C MARTI, HSTROPN ####[facility] Prmbekacmt2888 [place] [address]Dr. Donna Malone AST [Catalytic activity/Vol] 10 U/L Critically low 15-37 [facility] Comment on above: Performed By: #### C MARTI, HSTROPN ####[facility] Azowhwdxrz6950 [place] [address]Dr. Donna Malone Bilirubin [Mass/Vol] 0.3 mg/dL Normal 0.2-1.0 [facility] Comment on above: Performed By: #### C MARTI, HSTROPN ####[facility] Phkgujaumj8269 [place] [address]Dr. Donna Malone Calcium [Mass/Vol] 8.9 mg/dL Normal 8.5-10.1 [facility] Comment on above: Performed By: #### C MARTI, HSTROPN ####[facility] Thq[address] [place], [place] [address]Dr. Donna Malone Chloride [Moles/Vol] 106 mmol/L Normal 98-107 [facility] Comment on above: Performed By: #### C MARTI, HSTROPN ####[facility] [address]rx[address] [place], [place] [address]Dr. Donna Malone CO2 [Moles/Vol] 29.4 mmol/L Normal 21.0-32.0 [facility] Comment on above: Performed By: #### C MARTI, HSTROPN ####[facility] [address] [place], [place] [address]Dr. Donna Malone Creatinine [Mass/Vol] 1.15 mg/dL Normal 0.70-1.30 [facility] Comment on above: Performed By: #### C MARTI, HSTROPN ####[facility] [address] [place], [place] [address]Dr. Donna Malone EGFR-AF LIBERIAN >60 Normal >=60 [facility] Comment on above: Performed By: #### C MARTI, HSTROPN ####[facility] [address] [place], [place] [address]Dr. Donna Malone EGFR-NON AF LIBERIAN >60 Normal >=60 [facility] Comment on above: Performed By: #### C MP, HSTROPN ####[facility] [address] [place] [address]Dr. Donna Malone Globulin (S) [Mass/Vol] 4.2 g/dL Normal [facility] Comment on above: Performed By: #### C MP, HSTROPN ####[facility] [address] [place] [address]Dr. Donna Malone Glucose [Mass/Vol] 116 mg/dL Critically high 74-106 T [facility] Comment on above: Performed By: #### C MARTI, HSTROPN ####[facility] [address] [place] [address]Dr. Donna Malone Potassium [Moles/Vol] 4.3 mmol/L Normal 3.5-5.1 [facility] Comment on above: Performed By: #### C MARTI, HSTROPN ####[facility] [address] [place], [place] [address]Dr. Donna Malone Protein [Mass/Vol] 7.1 g/dL Normal 6.4-8.2 [facility] Comment on above: Performed By: #### C MARTI, HSTROPN ####[facility] [address] [place] [address]Dr. Donna Malone Sodium [Moles/Vol] 142 mmol/L Normal 136-145 [facility] Comment on above: Performed By: #### C MP, HSTROPN ####[facility] [address] [place] [address]Dr. Donna Malone Urea nitrogen [Mass/Vol] 9.0 mg/dL Normal 7.0-18.0 [facility] Comment on above: Performed By: #### C MP, HSTROPN ####[facility] [address] [place] [address]Dr. Donna Malone Urea nitrogen/Creatinine [Mass ratio] 7.8 mg/mg Normal [facility] Comment on above: Performed By: #### C MP, HSTROPN ####[facility] [address] [place], [place] [address]Cz. Donna Malone TROPONIN, HIGH SENSITIVITYon 08-10-2022 HSTROP 9.1 pg/mL Normal 4.0-76.1 The [facility] Comment on above: Result Comment: CUT- OFF POINTS HAVE BEEN ESTABLISHED BASED ON THE FOURTH UNIVERSAL DEFINITIONS OF MYOCARDIALINFARCTION. THE UPPER REFERENCE LIMIT (URL) OF TROPONIN, DEFINED THE 99TH PERCENTILE OFcTnI DISTRIBUTION IN A REFERENCE POPULATION, HAS BEEN CONFIRMED THE DECISION THRESHOLDFOR [place] DIAGNOSIS. Performed By: #### C MP, HSTROPN ####[facility] [address] [place], [place] [address]Vi. Donna Malone XR KNEE RT 4V or >on 022 XR KNEE RT 4V or > Normal [facility] CT HEAD WO CONon 08-05-2022 CT HEAD WO CON Normal The [facility] CT CSPINE WO CONon 2 CT CSPINE WO CON Normal The [facility] CT FACIAL BONES WO CONon CT FACIAL BONES WO CON Normal Th e [facility] CT LSPINE WO CONon 2 CT LSPINE WO CON Normal The [facility] Glucose Glucometer (BldC) [M ass/Vol]Ordered By: Sang Bauer on 07-20-2022 Glucose [Mass/Vol] 139 mg/dL [facility] Comment on above: Random Glucose Refer ence Range is dependent on time and content of last meal. Glucose of more than 200 mg/dL in a nonstressed, ambulatory subject supports the diagnosis of Diabetes Mellitus. No Panel InformationOrdered By: Sang Bauer on 07-20-2022 Bedside Glucose Comment Glu2: cleaned meter [facility] Cholesterol [Mass/volume] in Serum or PlasmaOrdered By: Sang Bauer on 07-18-2022 Cholesterol [Mass/Vol] 136 mg/dL 140-200 [facility] Comment on above: Chol less than 200 m g/dl low riskChol 201-239 mg/dl borderline riskChol 240 mg/dl and greater high risk Cholesterol in LDL Calc [Mas s/Vol]Ordered By: Sang Bauer on 07-18-2022 Cholesterol in LDL [Mass/Vol] 81 mg/dL 0-100 [facility] Comment on above: LDL ATP III CLASSIFI CATIONLDL less than 100 mg/dL OptimalLDL 100-129 mg/dL Near or above optimalLDL 130-159 mg/dL Borderline highLDL 160-189 mg/dL HighLDL greater than 189 mg/dL Very high Cholesterol in VLDL Calc [Ma ss/Vol]Ordered By: Sang Bauer on 07-18-2022 Cholesterol in VLDL [Mass/Vol] 17 mg/dL [facility] Serum or plasma high density lipoprotein (HDL) cholesterol measurementOrdered By: Sang Bauer on 07-18-2022 Cholesterol in HDL [Mass/Vol] 38 mg/dL 29-71 [facility] Comment on above: HDL CHOL ATP-III CLA SSIFICATION Cardiovascular RiskHDL > or equal to 60 mg/dL LOWHDL < 40 mg/dL HIGH Serum or plasma total choles terol/high density lipoprotein (HDL) cholesterol mass ratOrdered By: Sang Bauer on 07-18-2022 Cholesterol.total/Chol esterol in HDL [Mass ratio] 3.6 {ratio} <5.0 [facility] Triglyceride [Mass/volume] i n Serum or PlasmaOrdered By: Sang Bauer on 07-18-2022 Triglyceride [Mass/Vol] 85 mg/dL 35-149 [facility] Comment on above: TRIG ATP III [...] aPTT Coag (PPP) [Time] 35.8 s 25.1-36.5 [facility] Albumin [Mass/volume] in Ser um or PlasmaOrdered By: Gayathri Leal on 07-17-2022 Albumin [Mass/Vol] 3.1 g/dL 3.2-5.5 [facility] Amphetamine Screen Ql (U)Ord ered By: Gayathri Leal on 07-17-2022 Amphetamines Ql (U) Negative Negative [facility] Automated erythrocytes count in urine sediment (number/area)Ordered By: Gayathri Leal on 07-17-2022 RBC Auto (Urine sed) [#/Area] 3-4 [HPF] 0-4 [facility] Automated leukocytes count i n urine sediment (number/area)Ordered By: Gayathri Leal on 07-17-2022 WBC Auto (Urine sed) [#/Area] 1-2 [HPF] 0-4 [facility] Barbiturates [Presence] in U rineOrdered By: Gayathri Leal on 07-17-2022 Barbiturates Ql (U) Negative Negative [facility] Basophils Auto (Bld) [#/Vol] Ordered By: Gayathri Leal on 07-17-2022 Basophils (Bld) [#/Vol] 0.1 10*3/uL 0.0-0.2 [facility] Basophils/100 WBC Auto (Bld) Ordered By: Gayathri Leal on 07-17-2022 Basophils/100 WBC (Bld) 1.0 % . [facility] Benzodiazepines [Presence] i n UrineOrdered By: Gayathri Leal on 07-17-2022 Benzodiazepines Ql (U) Positive Negative [facility] Bilirubin Test strip Ql (U)O rdered By: Gayathri Leal on 07-17-2022 Bilirubin Ql (U) Negative Negative [facility] COVID CepheidOrdered By: Olya Leal on 07-17-2022 SARS-CoV-2 (COVID-19) Ab IA Ql Negative Negative [facility] Comment on above: This is a duplicate [employer] Xpert Xpress CoV-2/Flu/RSV Plus RNA by RT-PCR result to be used for statistical tracking purpose only. SARS-CoV-2 (COVID-19) RNA JOSÉ MIGUEL+probe Ql (Unsp spec) [facility] Cannabinoids [Presence] in U rine by Screen methodOrdered By: Gayathri Leal on 07-17-2022 Cannabinoids Screen Ql (U) Negative Negative [facility] Comment on above: These are unconfirme d results and should not be used for legal purposes. Drug Cut-Off Concentration: AMPH 1000 ng/mL EWA 200 ng/mL JOHN 200 ng/mL COCM 300 ng/mL OP 300 ng/mL PCP 25 ng/mL THC 20 ng/mL Color Auto (U)Ordered By: Dung Leal on 07-17-2022 Color (U) Yellow Yellow [facility] Creatine kinase [Enzymatic a ctivity/volume] in Serum or PlasmaOrdered By: Gayathri Leal on 07-17-2022 CK [Catalytic activity/Vol] 137 U/L 22-269 [facility] Creatinine and Glomerular fi ltration rate.predicted panel (S/P/Bld)Ordered By: Gayathri Leal on 07-17-2022 Creatinine [Mass/Vol] 1.06 mg/dL 0.64-1.27 [facility] Direct bilirubin measurement Ordered By: Gayathri Leal on 07-17-2022 Bilirubin.direct [Mass/Vol] mg/dL 0.0-0.4 [facility] Eosinophils Auto (Bld) [#/Vo l]Ordered By: Gayathri Leal on 07-17-2022 Eosinophils (Bld) [#/Vol] 0.1 10*3/uL 0.0-0.45 [facility] Eosinophils/100 WBC Auto (Bl d)Ordered By: Gayathri Leal on 07-17-2022 Eosinophils/100 WBC (Bld) 0.7 % . [facility] Erythrocyte distribution wid th Auto (RBC) [Ratio]Ordered By: Gayathri Leal on 07-17-2022 Erythrocyte distribution width (RBC) [Ratio] 15.8 % 12.0-14.8 [facility] Estimated glomerular filtrat ion rate (GFR) non- AmericanOrdered By: Gayathri Leal on 07-17-2022 GFR/1.73 sq M.predicted among non-blacks MDRD (S/P/Bld) [Vol rate/Area] > 60 mL/Min [facility] Globulin Calc (S) [Mass/Vol] Ordered By: Gayathri Leal on 07-17-2022 Globulin (S) [Mass/Vol] 3.0 g/dL [facility] Glucose mean value [Mass/vol ume] in Blood Estimated from glycated hemoglobinOrdered By: Sang Bauer on 07-17-2022 Average glucose Estimated from glycated hemoglobin (Bld) [Mass/Vol] 114 mg/dL [facility] Hematocrit Auto (Bld) [Volum e fraction]Ordered By: Gayathri Leal on 07-17-2022 Hematocrit (Bld) [Volume fraction] 37.3 % 38.8-50.0 [facility] Hemoglobin A1c percentageOrd ered By: Sang Bauer on 07-17-2022 HbA1c (Bld) [Mass fraction] 5.6 % 4.3-5.6 [facility] Comment on above: Increased risk for d iabetes: 5.7 - 6.4diabetes: >6.4glycemic control for adults with diabetes: <7.0 Hemoglobin [Mass/volume] in BloodOrdered By: Gayathri Leal on 07-17-2022 Hemoglobin (Bld) [Mass/Vol] 12.3 g/dL 13.0-17.0 [facility] Ketones Auto test strip (U) [Mass/Vol]Ordered By: Gayathri Leal on 07-17-2022 Ketones (U) [Mass/Vol] 2+ Negative [facility] - Chemistry and C hemistry - challengeOrdered By: Gayathri Leal on 07-17-2022 Natriuretic peptide B (Bld) [Mass/Vol] 116.0 pg/mL 5-100 [facility] Laboratory - CoagulationOrde red By: Gayathri Leal on 07-17-2022 PT Coag (PPP) [Time] 12.5 s 9.0-12.9 [facility] Laboratory - Drug toxicology Ordered By: Gayathri Leal on 07-17-2022 Opiates Ql (U) Negative Negative [facility] - Hematology and Cell countsOrdered By: Gayathri Leal on 07-17-2022 Nucleated RBC/100 WBC (Bld) [Ratio] 0.1 % 0-0.5 [facility] - UrinalysisOrder ed By: Gayathri Leal on 07-17-2022 Hyaline casts LM Ql (Urine sed) None seen [LPF] 0-8 [facility] Leukocytes [#/volume] in Blo od by Automated countOrdered By: Gayathri Leal on 07-17-2022 WBC (Bld) [#/Vol] 7.8 10*3/uL 4.5-11.0 [facility] Lymphocytes Auto (Bld) [#/Vo l]Ordered By: Gayathri Leal on 07-17-2022 Lymphocytes (Bld) [#/Vol] 2.3 10*3/uL 1.00-4.8 [facility] Lymphocytes/100 WBC Auto (Bl d)Ordered By: Gayathri Leal on 07-17-2022 Lymphocytes/100 WBC (Bld) 29.5 % . [facility] MCH Auto (RBC) [Entitic mass ]Ordered By: Gayathri Leal on 07-17-2022 MCH (RBC) [Entitic mass] 30.2 pg 27.5-35.2 [facility] MCHC Auto (RBC) [Mass/Vol]Or dered By: Gayathri Leal on 07-17-2022 MCHC (RBC) [Mass/Vol] 33.1 g/dL 32.5-35.6 [facility] MCV Auto (RBC) [Entitic vol] Ordered By: Gayathri Leal on 07-17-2022 MCV (RBC) [Entitic vol] 91.5 fL 83.5-101 [facility] Monocyte %Ordered By: Zeinab Leal on 07-17-2022 Monocyte % 20 umol/L [facility] Monocytes Auto (Bld) [#/Vol] Ordered By: Gayathri Leal on 07-17-2022 Monocytes (Bld) [#/Vol] 0.4 10*3/uL 0.0-0.8 [facility] Monocytes/100 WBC Auto (Bld) Ordered By: Gayathri Leal on 07-17-2022 Monocytes/100 WBC (Bld) 5.4 % . [facility] Neutrophils Auto (Bld) [#/Vo l]Ordered By: Gayathri Leal on 07-17-2022 Neutrophils (Bld) [#/Vol] 4.9 10*3/uL 1.8-7.7 [facility] Neutrophils/100 WBC Auto (Bl d)Ordered By: Gayathri Leal on 07-17-2022 Neutrophils/100 WBC (Bld) 63.4 % . [facility] Nitrite Test strip Ql (U)Ord ered By: Gayathri Leal on 07-17-2022 Nitrite Ql (U) Negative Negative [facility] No Panel InformationOrdered By: Gayathri Leal on 07-17-2022 Estimated GFR () > 60 mL/Min [facility] Comment on above: GFR estimated refere nce range: According to KDOQI guidelines, <60 ml/min/1.73m2 is sufficient to diagnose a patient with chronic kidney disease. Pharmacy Creatinine Clearance (Chem N/A [facility] Phencyclidine Screen Ql (U)O rdered By: Gayathri Leal on 07-17-2022 Phencyclidine Ql (U) Negative Negative [facility] Platelet mean volume Auto (B ld) [Entitic vol]Ordered By: Gayathri Leal on 07-17-2022 Platelet mean volume (Bld) [Entitic vol] 10.2 fL 6.6-10.1 [facility] Platelet poor plasma interna tional normalized ratio (INR) by coagulation assay (relatOrdered By: Gayathri Leal on 07-17-2022 INR Coag (PPP) [Relative time] 1.1 {INR} [facility] Comment on above: INR Therapeutic Rang [...] 07-17-2022 Platelets (Bld) [#/Vol] 239 10*3/uL 150-450 [facility] Protein Auto test strip (U) [Mass/Vol]Ordered By: Gayathri Leal on 07-17-2022 Protein (U) [Mass/Vol] Negative [facility] Protein [Mass/volume] in Ser um or PlasmaOrdered By: Gayathri Leal on 07-17-2022 Protein [Mass/Vol] 6.1 g/dL 6.1-7.9 [facility] RBC Auto (Bld) [#/Vol]Ordere d By: Gayathri Leal on 07-17-2022 RBC (Bld) [#/Vol] 4.07 10*6/uL 3.90-5.60 [facility] Serum or plasma alanine del valle otransferase measurement without P-5'-P (enzymatic activiOrdered By: Gayathri Leal on 07-17-2022 ALT No additional P-5'-P [Catalytic activity/Vol] 13 U/L 1060 [facility] Serum or plasma albumin/glob ulin mass ratioOrdered By: Gayathri Leal on 07-17-2022 Albumin/Globulin [Mass ratio] 1.0 {ratio} [facility] Serum or plasma alkaline gail sphatase measurement (enzymatic activity/volume)Ordered By: Gayathri Leal on 07-17-2022 ALP [Catalytic activity/Vol] 37 U/L 32-92 [facility] Serum or plasma anion gap de terminationOrdered By: Gayathri Leal on 07-17-2022 Anion gap [Moles/Vol] 12.1 mmol/L 6.0-15.0 [facility] Serum or plasma aspartate am inotransferase measurement (enzymatic activity/volume)Ordered By: Gayathri Lela on 07-17-2022 AST [Catalytic activity/Vol] 15 U/L 10-42 [facility] Serum or plasma calcium deepti urement (mass/volume)Ordered By: Gayathri Leal on 07-17-2022 Calcium [Mass/Vol] 8.8 mg/dL 8.2-10.2 [facility] Serum or plasma chloride deepak surement (moles/volume)Ordered By: Gayathri Leal on 07-17-2022 Chloride [Moles/Vol] 108 mmol/L 95-114 [facility] Serum or plasma creatine kin ase MB (CKMB)/total creatine kinase (CK) ratio by calculaOrdered By: Gayathri Leal on 07-17-2022 CK.MB Calc [Catalytic fraction] 2.6 % 0.00-2.50 [facility] Serum or plasma creatine kin ase MB measurement (mass/volume)Ordered By: Gayathri Leal on 07-17-2022 CK.MB [Mass/Vol] 3.6 ng/mL 0.6-6.3 [facility] Serum or plasma glucose deepti urement (mass/volume)Ordered By: Gayathri Leal on 07-17-2022 Glucose [Mass/Vol] 91 mg/dL 70-100 [facility] Comment on above: ADA recommended refe rence rangeRandom Glucose Reference Range is dependent on time and content of last meal. Glucose of more than 200 mg/dL in a nonstressed, ambulatory subject supports the diagnosis of Diabetes Mellitus. Serum or plasma non-glucuron idated bilirubin measurement (mass/volume)Ordered By: Gayathri Leal on 07-17-2022 Bilirubin.indirect [Mass/Vol] TNP [facility] Comment on above: Test not performed Serum or plasma potassium me asurement (moles/volume)Ordered By: Gayathri Leal on 07-17-2022 Potassium [Moles/Vol] 4.0 mmol/L 3.5-5.1 [facility] Serum or plasma sodium measu rement (moles/volume)Ordered By: Gayathri Leal on 07-17-2022 Sodium [Moles/Vol] 139 mmol/L 136-146 [facility] Serum or plasma total biliru bin measurement (mass/volume)Ordered By: Gayathri Leal on 07-17-2022 Bilirubin [Mass/Vol] 0.8 mg/dL 0.3-1.2 [facility] Serum or plasma total carbon dioxide measurement (moles/volume)Ordered By: Gayathri Leal on 07-17-2022 CO2 [Moles/Vol] 22.9 mmol/L 22.0-30.0 [facility] Serum or plasma urea nitroge n measurement (mass/volume)Ordered By: Gayathri Leal on 07-17-2022 Urea nitrogen [Mass/Vol] 12 mg/dL 9-23 [facility] Specific gravity Auto test s trip (U) [Rel density]Ordered By: Gayathri Leal on 07-17-2022 Specific gravity (U) [Rel density] 1.024 1.001-1.[address] [facility] Squamous epithelial cells de tection in urine sediment by light microscopyOrdered By: Gayathri Leal on 07-17-2022 Epithelial cells.squamous LM Ql (Urine sed) None seen [HPF] 0-2 [facility] Troponin I.cardiac [Mass/vol ume] in Serum or Plasma by High sensitivity methodOrdered By: Sang Bauer on 07-17-2022 Troponin I.cardiac High sensitivity method [Mass/Vol] 7 pg/mL 0-20 [facility] Urine bacteria detection by automated methodOrdered By: Gayathri Leal on 07-17-2022 Bacteria Auto Ql (U) None seen None Seen [facility] Urine clarity by refractomet ry automatedOrdered By: Gayathri Leal on 07-17-2022 Clarity Refractometry automated (U) Clear Clear [facility] Urine cocaine detectionOrder ed By: Gayathri Leal on 07-17-2022 Cocaine Ql (U) Negative Negative [facility] Urine glucose measurement by automated test strip (mass/volume)Ordered By: Gayathri Leal on 07-17-2022 Glucose Auto test strip (U) [Mass/Vol] Normal mg/dL Normal [facility] Urine hemoglobin detection b y automated test stripOrdered By: Gayathri Leal on 07-17-2022 Hemoglobin Auto test strip Ql (U) Negative Negative [facility] Urine leukocyte esterase det ection by automated test stripOrdered By: Gayathri Leal on 07-17-2022 Leukocyte esterase Auto test strip Ql (U) 1+ Negative [facility] Urobilinogen Auto test strip (U) [Mass/Vol]Ordered By: Gayathri Leal on 07-17-2022 Urobilinogen (U) [Mass/Vol] Normal mg/dL Normal [facility] pH Auto test strip (U)Ordere d By: Gayathri Leal on 07-17-2022 pH (U) 6.5 [pH] 5.0-9.0 [facility] AMMONIAon 07-16-2022 Ammonia (P) [Moles/Vol] 44 umol/L Critically high 11-32 [facility] Comment on above: Performed By: #### A MM ####[facility] [address] [place], [place] [address]Dr. Donna Malone BNPon 07-16-2022 Natriuretic peptide B (Bld) [Mass/Vol] 236.0 pg/mL Normal <=900.0 [facility] Comment on above: Performed By: #### C MP, BNP ####[facility] [address] [place], [place] [address]Dr. Donna Malone CBC AUTO DIFFon 07-16-2022 BASO # 0.1 103/ul Normal 0.0-0.1 [facility] Comment on above: Performed By: #### C BC ####[facility] [address] [place], [place] [address]Dr. Donna Malone Basophils/100 WBC (Bld) 1.0 % Normal 0.2-2.0 [facility] Comment on above: Performed By: #### C BC ####[facility] [address] [place], [place] [address]Dr. Donna Malone EO # 0.2 103/ul Normal 0.0-0.7 [facility] Comment on above: Performed By: #### C BC ####[facility] [address] [place], [place] [address]Dr. Donna Malone Eosinophils/100 WBC (Bld) 3.3 % Normal 0.9-7.0 [facility] Comment on above: Performed By: #### C BC ####[facility] [address] [place], [place] [address]Dr. Donna Malone Erythrocyte distribution width (RBC) [Ratio] 15.1 % Critically high 11.0-15.0 [facility] Comment on above: Performed By: #### C BC ####[facility] [address] [place], [place] [address]Dr. Donna Malone Hematocrit (Bld) [Volume fraction] 36.1 % Critically low 42.0-54.0 [facility] Comment on above: Performed By: #### C BC ####[facility] [address] [place] [id number]. Donna Malone Hemoglobin (Bld) [Mass/Vol] 12.0 g/dL Critically low 14.0-18.0 [facility] Comment on above: Performed By: #### C BC ####[facility] [address] [place] [id number]. Donna Malone IG # 0.01 10e3/ul Normal 0.00-0.03 [facility] Comment on above: Performed By: #### C BC ####[facility] [address] [place] [address]Dr. Donna Malone IG % 0.2 % Normal 0.0-0.5 [facility] Comment on above: Performed By: #### C BC ####[facility] [address] [place], [place] [address]Dr. Donna Malone LYMPH # 2.5 103/ul Normal 1.2-3.8 [facility] Comment on above: Performed By: #### C BC ####[facility] [address] [place] [address]Dr. Donna Malone Lymphocytes/100 WBC (Bld) 41.1 % Normal 20.5-60.0 [facility] Comment on above: Performed By: #### C BC ####[facility] [address] [place], [place] [address]Dr. Donna Malone MANUAL DIFF REQ NO Normal [facility] Comment on above: Performed By: #### C BC ####[facility] [address] [place] [id number]. Donna Malone MCH (RBC) [Entitic mass] 30.6 pg Normal 25.9-34.0 [facility] Comment on above: Performed By: #### C BC ####[facility] [address] [place] [id number]. Donna Malone MCHC (RBC) [Mass/Vol] 33.2 g/dL Normal 29.9-35.2 [facility] Comment on above: Performed By: #### C BC ####[facility] [address] [place] [address]Dr. Donna Malone MCV (RBC) [Entitic vol] 92.1 fL Normal 80.0-94.0 [facility] Comment on above: Performed By: #### C BC ####[facility] [address] [place] [address]Dr. Donna Malone MONO # 0.5 103/ul Normal 0.3-0.8 [facility] Comment on above: Performed By: #### C BC ####[facility] [address] [place] [address]Dr. Donna Malone Monocytes/100 WBC (Bld) 7.4 % Normal 1.7-12.0 [facility] Comment on above: Performed By: #### C BC ####[facility] [address] [place], [place] [address]Dr. Donna Malone NEUT # 2.9 103/ul Normal 1.4-6.5 [facility] Comment on above: Performed By: #### C BC ####[facility] [address] [place], [place] [id number]. Donna Malone Neutrophils/100 WBC (Bld) 47.0 % Normal 43.0-75.0 [facility] Comment on above: Performed By: #### C BC ####[facility] [address] [place], [place] [id number]. Donna Malone Platelet mean volume (Bld) [Entitic vol] 11.4 fL Normal 9.5-13.5 [facility] Comment on above: Performed By: #### C BC ####[facility] [address] [place] [id number]. Donna Malone PLT 206 103/ul Normal 150-450 [facility] Comment on above: Performed By: #### C BC ####[facility] [address] [place] [id number]. Donna Faisal RBC 3.92 106/ul Critically low 4.70-6.10 [facility] Comment on above: Performed By: #### C BC ####[facility] [address] [place] [address]Dr. Donna Malone WBC 6.1 103/ul Normal 4.0-11.0 [facility] Comment on above: Performed By: #### C BC ####[facility] [address] [place] [address]Dr. Donna Malone ECHO LIMITED STUDYon 022 ECHO LIMITED STUDY Normal [facility] MRI BRAIN WO CONon 2 MRI BRAIN WO CON Normal [facility] PROF 14(COMP METB)on 022 Albumin [Mass/Vol] 2.8 g/dL Critically low 3.4-5.0 [facility] Comment on above: Performed By: #### C MP, BNP ####[facility] [address] [place], [place] [address]Dr. Donna Malone Albumin/Globulin [Mass ratio] 0.9 {ratio} Normal [facility] Comment on above: Performed By: #### C MP, BNP ####[facility] [address] [place], [place] [address]Dr. Donna Malone ALP [Catalytic activity/Vol] 36 U/L Critically low 46-116 [facility] Comment on above: Performed By: #### C MP, BNP ####[facility] [address] [place] [address]Dr. Donna Malone ALT [Catalytic activity/Vol] 13 U/L Critically low 16-63 [facility] Comment on above: Performed By: #### C MP, BNP ####[facility] [address] [place] [address]Dr. Donna Malone Anion gap [Moles/Vol] 10.4 mmol/L Normal [facility] Comment on above: Performed By: #### C MP, BNP ####[facility] Zhafvsojtr[address] [place] [address]Dr. Donna Malone AST [Catalytic activity/Vol] 13 U/L Critically low 15-37 [facility] Comment on above: Performed By: #### C MP, BNP ####[facility] Rqbooxfjdy[address] [place] [address]Dr. Donna Malone Bilirubin [Mass/Vol] 0.3 mg/dL Normal 0.2-1.0 [facility] Comment on above: Performed By: #### C MP, BNP ####[facility] Obtnwkbegm[address] [place] [address]Dr. Donna Malone Calcium [Mass/Vol] 8.2 mg/dL Critically low 8.5-10.1 Th [facility] Comment on above: Performed By: #### C MP, BNP ####[facility] Hliinkjtgw[address] [place] [address]Dr. Donna Malone Chloride [Moles/Vol] 108 mmol/L Critically high 98-107 [facility] Comment on above: Performed By: #### C MP, BNP ####[facility] Dpstevvqhs[address] [place], [place] [address]Dr. Donna Malone CO2 [Moles/Vol] 25.5 mmol/L Normal 21.0-32.0 [facility] Comment on above: Performed By: #### C MP, BNP ####[facility] Zxbttyneyv96[address] [place], [place] [address]Dr. Donna Malone Creatinine [Mass/Vol] 0.92 mg/dL Normal 0.70-1.30 [facility] Comment on above: Performed By: #### C MP, BNP ####[facility] Nbypqhwtry88[address] [place], [place] [address]Dr. Donna Malone EGFR-AF LIBERIAN >60 Normal >=60 [facility] Comment on above: Performed By: #### C MP, BNP ####[facility] Jxzqflcrry[address] [place] [address]Dr. Donna Malone EGFR-NON AF LIBERIAN >60 Normal >=60 [facility] Comment on above: Performed By: #### C MP, BNP ####[facility] Kojiwotata67[address] [place], [place] [address]Dr. Donna Malone Globulin (S) [Mass/Vol] 3.2 g/dL Normal The [facility] Comment on above: Performed By: #### C MP, BNP ####[facility] Ifsqmzduvz[address] [place] [address]Dr. Donna Malone Glucose [Mass/Vol] 76 mg/dL Normal 74-106 The [facility] Comment on above: Performed By: #### C MP, BNP ####[facility] Oinhdekpqk54[address] [place] [address]Dr. Donna Malone Potassium [Moles/Vol] 3.9 mmol/L Normal 3.5-5.1 [facility] Comment on above: Performed By: #### C MP, BNP ####[facility] Impfdytcwv4[address] [place] [address]Dr. Donna Malone Protein [Mass/Vol] 6.0 g/dL Critically low 6.4-8.2 Th [facility] Comment on above: Performed By: #### C MP, BNP ####[facility] Vhyozamblz33[address] [place], [place] [address]Dr. Donna Malone Sodium [Moles/Vol] 140 mmol/L Normal 136-145 The [facility] Comment on above: Performed By: #### C MP, BNP ####[facility] Fecnrhjfxu9[address] [place], [place] [address]Dr. Donna Malone Urea nitrogen [Mass/Vol] 12.0 mg/dL Normal 7.0-18.0 The [facility] Comment on above: Performed By: #### C MP, BNP ####[facility] Smofdkxtvu1810[address] [place], [place] [address]Dr. Donna Malone Urea nitrogen/Creatinine [Mass ratio] 13.0 mg/mg Normal [facility] Comment on above: Performed By: #### C MP, BNP ####[facility] Nkgfktjeic2352[address] [place], [place] [address]Dr. Donna Malone VIT B12 AND FOLATEon 022 Cobalamin (Vitamin B12) [Mass/Vol] 532.0 pg/mL Normal 193.0-986. 0 [facility] Comment on above: Performed By: #### B 12FOL ####[facility] Hzmvysywck4944[address] [place], [place] [address]Dr. Donna Malone FOLATE 13.60 ng/mL Normal 8.60-58.90 [facility] Comment on above: Performed By: #### B 12FOL ####[facility] Nnpnzsazmd69[address] [place] [address]Dr. Donna Malone AMMONIAon 07-15-2022 Ammonia (P) [Moles/Vol] 23 umol/L Normal 32 [facility] Comment on above: Performed By: #### A MM ####[facility] Oyshfotehp5644[address] [place], [place] [address]Dr. Donna Malone BLOOD GASES BTYon 07-15-2022 02 MODE ROOM AIR [facility] Comment on above: Performed By: #### A BG ####[facility] Oruwnszgay1367[address] [place], [place] [address]Dr. Donna Malone ALLENS TEST Positive [facility] Comment on above: Performed By: #### A BG ####[facility] Myxilrufdo1353[address] [place], [place] [address]Dr. Donna Malone Base excess Calc (Bld) [Moles/Vol] -1.3000 mmol/L Normal -2.0-2.0 [facility] Comment on above: Performed By: #### A BG ####[facility] Cwxpawntmj1669[address] [place], [place] [address]Dr. Donna Malone BIPAP PRESSURE [facility] Comment on above: Performed By: #### A BG ####[facility] Hjemjnjbcq2870[address] [place], [place] [address]Dr. Donna Malone CPAP [facility] Comment on above: Performed By: #### A BG ####[facility] Vychxmxtnw8840[address] [place], [place] [address]Dr. Donna Malone FIO2 [facility] Comment on above: Performed By: #### A BG ####[facility] Qbmfcbqdjd8900[address] [place], [place] [address]Dr. Donna Malone HCO3 (Bld) [Moles/Vol] 22.7 mmol/L Normal 22.0-26.0 [facility] Comment on above: Performed By: #### A BG ####[facility] Frestsifqk[address] [place], [place] [id number]. Donna Malone LPM Normal [facility] Comment on above: Performed By: #### A BG ####[facility] Firbnjsvil05[address] [place], [place] [address]Dr. Donna Malone MINUTE VOLUME Normal [facility] Comment on above: Performed By: #### A BG ####[facility] Dxtskjjxmo8137[address] [place], [place] [address]Dr. Donna Malone Oxygen (Bld) [Partial pressure] 77.7 mm[Hg] Critically low 80.0-100.0 [facility] Comment on above: Performed By: #### A BG ####[facility] Ntabwlkekl5924[address] [place], [place] [address]Dr. Donna Malone Oxygen saturation in Blood 95.9 % Normal 95.0-100.0 [facility] Comment on above: Performed By: #### A BG ####[facility] Mlqudindlp38[address] [place], [place] [address]Dr. Donna Malone PCO2 33.0 mmHg Critically low 35.0-45.0 [facility] Comment on above: Performed By: #### A BG ####[facility] Psebjjoeoa22[address] [place], [place] [address]Dr. Donna Malone PEEP [facility] Comment on above: Performed By: #### A BG ####[facility] Tbwycoopwv80[address] [place], [place] [address]Dr. Donna Malone pH (Bld) 7.446 [pH] Normal 7.350-7.45 0 [facility] Comment on above: Performed By: #### A BG ####[facility] Ozmvgjyory20[address] [place], [place] [address]Dr. Donna Malone PIP Cement [facility] Comment on above: Performed By: #### A BG ####[facility] Tytlsflsxf83[address] [place], [place] [address]Dr. Donna Malone PS Normal [facility] Comment on above: Performed By: #### A BG ####[facility] Uxijldhdom44[address] [place], [place] [address]Dr. Donna Malone PUNCTURE SITE RB Normal [facility] Comment on above: Performed By: #### A BG ####[facility] Alub[address]wixqv[address] [place] [address]Dr. Donna Malone RATE Normal [facility] Comment on above: Performed By: #### A BG ####[facility] Pptvomriub[address] [place] [address]Dr. Donna Malone VENT MODE Normal [facility] Comment on above: Performed By: #### A BG ####[facility] Ofsnrjtpkt27[address] [place] [address]Dr. Rubyyvan Malone [place] Normal [facility] Comment on above: Performed By: #### A BG ####[facility] Komfobdqxh[address] [place] [address]Dr. Donna Malone BNPon 07-15-2022 Natriuretic peptide B (Bld) [Mass/Vol] 111.0 pg/mL Normal <=900.0 [facility] Comment on above: Performed By: #### B CARPET OR RUG LAYER HELPER, CMP, CMADM ####[facility] Aenoxaxwdy[address] [place] [address]Dr. Donna Malone CARDIAC MJ 3-6on 2 CK [Catalytic activity/Vol] 102 U/L Normal 39-308 [facility] Comment on above: Performed By: #### C MREP ####[facility] [address]jglt[address]xz[address] [place] [address]Dr. Donna Malone CK.MB [Mass/Vol] 3.67 ng/mL Critically high <=3.60 [facility] Comment on above: Performed By: #### C MREP ####[facility] Anpuqfeyhf[address] [place] [address]Dr. Donna Malone HSTROP 13.1 pg/mL Normal 4.0-76.1 The [facility] Comment on above: Result Comment: CUT- OFF POINTS HAVE BEEN ESTABLISHED BASED ON THE FOURTH UNIVERSAL DEFINITIONS OF MYOCARDIALINFARCTION. THE UPPER REFERENCE LIMIT (URL) OF TROPONIN, DEFINED THE 99TH PERCENTILE OFcTnI DISTRIBUTION IN A REFERENCE POPULATION, HAS BEEN CONFIRMED THE DECISION THRESHOLDFOR [place] DIAGNOSIS. Performed By: #### C MREP ####[facility] X[address] [place], [place] [address]Tz. Donna Malone CK [Catalytic activity/Vol] 89 U/L Normal 39-308 [facility] Comment on above: Performed By: #### C MREP ####[facility] Mzbhkgztdv5698 [place], [place] [address]Bl. Donna Malone CK.MB [Mass/Vol] 3.37 ng/mL Normal <=3.60 [facility] Comment on above: Performed By: #### C MREP ####[facility] Gvq[address]jzjb[address] [place] [address]Dr. Donna Malone HSTROP 11.2 pg/mL Normal 4.0-76.1 The [facility] Comment on above: Result Comment: CUT- OFF POINTS HAVE BEEN ESTABLISHED BASED ON THE FOURTH UNIVERSAL DEFINITIONS OF MYOCARDIALINFARCTION. THE UPPER REFERENCE LIMIT (URL) OF TROPONIN, DEFINED THE 99TH PERCENTILE OFcTnI DISTRIBUTION IN A REFERENCE POPULATION, HAS BEEN CONFIRMED THE DECISION THRESHOLDFOR [place] DIAGNOSIS. Performed By: #### C MREP ####[facility] [address]cltrrto[address] [place] [address]Dr. Donna Malone CARDIAC MJ ADMITon 022 CK [Catalytic activity/Vol] 76 U/L Normal 39-308 [facility] Comment on above: Performed By: #### B CARPET OR RUG LAYER HELPER, CMP, CMADM ####[facility] Krix[address]fue[address] [place] [address]Dr. Donna Malone CK.MB [Mass/Vol] 2.59 ng/mL Normal <=3.60 [facility] Comment on above: Performed By: #### B CARPET OR RUG LAYER HELPER, CMP, CMADM ####[facility] Qdqqgnpqdl91[address] [place] [address]Dr. Donna Malone HSTROP 10.1 pg/mL Normal 4.0-76.1 The [facility] Comment on above: Result Comment: CUT- OFF POINTS HAVE BEEN ESTABLISHED BASED ON THE FOURTH UNIVERSAL DEFINITIONS OF MYOCARDIALINFARCTION. THE UPPER REFERENCE LIMIT (URL) OF TROPONIN, DEFINED THE 99TH PERCENTILE OFcTnI DISTRIBUTION IN A REFERENCE POPULATION, HAS BEEN CONFIRMED THE DECISION THRESHOLDFOR [place] DIAGNOSIS. Performed By: #### B CARPET OR RUG LAYER HELPER, CMP, CMADM ####[facility] Drepfssnhm9[address] [place] [address]Dr. Rubyyvan Malone BINDU 109 ng/mL Critically high 16-96 [facility] Comment on above: Performed By: #### B CARPET OR RUG LAYER HELPER, CMP, CMADM ####[facility] Goo[address]dbp[address] [place] [address]Dr. Rubyyvan Malone CBC AUTO DIFFon 07-15-2022 BASO # 0.0 103/ul Normal 0.0-0.1 [facility] Comment on above: Performed By: #### C BC ####[facility] Codpeutjps[address] [place] [address]Dr. Donna Malone Basophils/100 WBC (Bld) 0.7 % Normal 0.2-2.0 [facility] Comment on above: Performed By: #### C BC ####[facility] Fplvvkvcga16[address] [place], [place] [address]Dr. Donna Malone EO # 0.1 103/ul Normal 0.0-0.7 The [facility] Comment on above: Performed By: #### C BC ####[facility] Ufymygmvnm12[address] [place], [place] [address]Dr. Donna Malone Eosinophils/100 WBC (Bld) 2.3 % Normal 0.9-7.0 [facility] Comment on above: Performed By: #### C BC ####[facility] Viwgwlbism060[address] [place], [place] [address]Dr. Donna Malone Erythrocyte distribution width (RBC) [Ratio] 15.2 % Critically high 11.0-15.0 [facility] Comment on above: Performed By: #### C BC ####[facility] Goebfuwavw080[address] [place], [place] [address]Dr. Donna Malone Hematocrit (Bld) [Volume fraction] 34.8 % Critically low 42.0-54.0 [facility] Comment on above: Performed By: #### C BC ####[facility] Sprebhmcid4101[address] [place], [place] [address]Dr. Donna Malone Hemoglobin (Bld) [Mass/Vol] 11.4 g/dL Critically low 14.0-18.0 [facility] Comment on above: Performed By: #### C BC ####[facility] Isumroooeq7[address] [place] [address]DrElizabeth Malone IG # 0.01 10e3/ul Normal 0.00-0.03 [facility] Comment on above: Performed By: #### C BC ####[facility] Xbinnyeyvs8525 [place] [address]DrElizabeth Malone IG % 0.2 % Normal 0.0-0.5 [facility] Comment on above: Performed By: #### C BC ####[facility] Ifhipiepxc0920[address] [place], [place] [address]DrElizabeth Malone LYMPH # 1.6 103/ul Normal 1.2-3.8 [facility] Comment on above: Performed By: #### C BC ####[facility] Tzwmreqwdg1540[address] [place], [place] [address]DrElizabeth Malone Lymphocytes/100 WBC (Bld) 26.4 % Normal 20.5-60.0 [facility] Comment on above: Performed By: #### C BC ####[facility] Mgqpacsnvv205[address] [place], [place] [address]DrElizabeth Malone MANUAL DIFF REQ NO Normal [facility] Comment on above: Performed By: #### C BC ####[facility] Fvgvtcccqr1984[address] [place], [place] [address]DrElizabeth Malone MCH (RBC) [Entitic mass] 30.7 pg Normal 25.9-34.0 [facility] Comment on above: Performed By: #### C BC ####[facility] Nfnwugwsto0[address] [place], [place] [address]DrElizabeth Malone MCHC (RBC) [Mass/Vol] 32.8 g/dL Normal 29.9-35.2 The [facility] Comment on above: Performed By: #### C BC ####[facility] Nhotxfjqvb6264[address] [place], [place] [address]DrElizabeth Malone MCV (RBC) [Entitic vol] 93.8 fL Normal 80.0-94.0 [facility] Comment on above: Performed By: #### C BC ####[facility] Ewcnveykym[address] [place] [address]Dr. Donna Malone MONO # 0.5 103/ul Normal 0.3-0.8 [facility] Comment on above: Performed By: #### C BC ####[facility] Rsaoygkqds5063 [place] [address]Dr. Donna Malone Monocytes/100 WBC (Bld) 7.5 % Normal 1.7-12.0 [facility] Comment on above: Performed By: #### C BC ####[facility] Xgysfnxcln6107 [place] [address]Dr. Donna Malone NEUT # 3.8 103/ul Normal 1.4-6.5 [facility] Comment on above: Performed By: #### C BC ####[facility] Yjkridkcje79[address] [place], [place] [address]Dr. Donna Malone Neutrophils/100 WBC (Bld) 62.9 % Normal 43.0-75.0 [facility] Comment on above: Performed By: #### C BC ####[facility] Zrunabruug27[address] [place], [place] [address]Dr. Donna Malone Platelet mean volume (Bld) [Entitic vol] 11.7 fL Normal 9.5-13.5 [facility] Comment on above: Performed By: #### C BC ####[facility] Qkhojrgghi37[address] [place] [address]Dr. Donna Malone PLT 220 103/ul Normal 150-450 [facility] Comment on above: Performed By: #### C BC ####[facility] Xlfairdabl8432 [place] [address]Dr. Donna Malone RBC 3.71 106/ul Critically low 4.70-6.10 [facility] Comment on above: Performed By: #### C BC ####[facility] Vtoyhtrhls16[address] [place] [address]Dr. Donna Malone WBC 6.0 103/ul Normal 4.0-11.0 [facility] Comment on above: Performed By: #### C BC ####[facility] Vwkhfaszjo24[address] [place], [place] [address]Fi. Donna Malone CT CSPINE WO CONon 2 CT CSPINE WO CON Normal [facility] CT HEAD WO CONon 07-15-2022 CT HEAD WO CON Normal [facility] CTA NECK WO W CONon 07-15-20 22 CTA NECK WO W CON Normal The [facility] CULTURE URINEon 07-15-2022 CULTURE URINE Culture Observations : LIGHT GROWTH OF MIXED SKIN MICHAEL. NO POTENTIAL PATHOGENS SEEN. Normal The [facility] Comment on above: Performed By: #### U RCX ####[facility] Wiqwodbyeq264[address] [place], [place] [address]Mr. Donna Malone Covid-19 PCR (CVDTB)on SARS-CoV-2 (COVID-19) RNA JOSÉ MIGUEL+probe Ql (Unsp spec) Not detected Normal NOT DETECTED The [facility] Comment on above: Result Comment: When [...] for this test is supported by the Cad Designer Drafter of Health and Human Service's declaration that [...] be used). Performed By: #### C VDTBH ####[facility] Fpcfokfuvl[address] [place], [place] [address]Jr. Donna Malone DEPAKENE/VALPROICon 07-15-20 22 DEPAKENE 53.6 ug/ml Normal 50.0-100.0 [facility] Comment on above: Performed By: #### V ALP ####[facility] Porihwqdov[address] [place] [address]Dr. Donna Malone DRUG SCREEN RAPID (URINE)on 07-15-2022 AMP Negative Normal NEGATIVE [facility] Comment on above: Performed By: #### D SHARONA, ERUR ####[facility] Fxiudqdobz39[address] [place] [address]Dr. Donna Malone BAR Negative Normal NEGATIVE [facility] Comment on above: Performed By: #### Calvin TABOR, ERUR ####[facility] Tcdxkjjchp68[address] [place] [address]Dr. Donna Malone BUP Negative Normal NEGATIVE [facility] Comment on above: Performed By: #### Calvin TABOR, ERUR ####[facility] Xsyvgpytbd09[address] [place] [address]Dr. Donna Malone BZO Positive Abnormal NEGATIVE The [facility] Comment on above: Performed By: #### Calvin TABOR, ERUR ####[facility] Cdkuxliwwc73[address] [place] [address]Dr. Donna Malone EVONNE Negative Normal NEGATIVE [facility] Comment on above: Performed By: #### Calvin TABOR, ERUR ####[facility] Nuiereqyxb10[address] [place], [place] [address]Dr. Donna [facility] CUT-OFFS SEE BELOW Normal [facility] Comment on above: Result Comment: AMP [...] ng/mL Performed By: #### Calvin TABOR, ERUR ####[facility] Scyeewpijl[address] [place] [address]Dr. Donna Malone DRUG CUT HEADER DRUG CLASS TEST SYST EM CUT-OFF CONCENTRATIONS ARE FOLLOWS: Normal The [facility] Comment on above: Performed By: #### D SHARONA, ERUR ####[facility] [address]us[address]ievkr[address] [place] [address]Dr. Donna Malone mAMP Negative Normal NEGATIVE [facility] Comment on above: Performed By: #### D SHARONA, ERUR ####[facility] Vnzalmmdrf95[address] [place] [address]Dr. Donna Malone MTD Negative Normal NEGATIVE [facility] Comment on above: Performed By: #### D SHARONA, ERUR ####[facility] Aeyeivamfk400[address] [place] [address]Dr. Donna Malone OPI Negative Normal NEGATIVE [facility] Comment on above: Performed By: #### Calvin TABOR, ERUR ####[facility] Isffddhjnd[address] [place] [address]Dr. Yiyvan Malone OXY Negative Normal NEGATIVE [facility] Comment on above: Performed By: #### D SHARONA, ERUR ####[facility] L[address]rbhqflxc7[address] [place] [address]Dr. Donna Malone PCP Negative Normal NEGATIVE [facility] Comment on above: Performed By: #### Calvin TABOR, ERUR ####[facility] Lpnsxyznzn65[address] [place] [address]Dr. Donna Malone PPX Negative Normal NEGATIVE [facility] Comment on above: Performed By: #### Calvin TABOR, ERUR ####[facility] Ldsxkfutwz25[address] [place] [address]Dr. Donna Malone TCA Positive Abnormal NEGATIVE [facility] Comment on above: Performed By: #### Calvin TABOR, ERUR ####[facility] Kezkhdnhej[address] [place] [address]Dr. Donna Malone THC Negative Normal NEGATIVE [facility] Comment on above: Performed By: #### Calvin TABOR, ERUR ####[facility] Vvawsxhjkj028[address] [place] [address]Dr. Donna Faisal ER URINE PROFILEon 2 Bilirubin Ql (U) Negative Normal NEGATIVE [facility] Comment on above: Performed By: #### Calvin TABOR, ERUR ####[facility] Dvwqnzpnpj4404 [place] [address]Dr. Donna Malone Clarity (U) CLEAR Normal CLEAR [facility] Comment on above: Performed By: #### Calvin TABOR, ERUR ####[facility] Mfeootuhen65[address] [place], [place] [address]Dr. Donna Malone Color (U) YELLOW Normal YELLOW [facility] Comment on above: Performed By: #### Calvin TABOR ERUR ####[facility] Eypuvlqixb9[address] [place], [place] [address]Dr. Donna FERNANDEZD A micrscopic examina tion will be performed if indicated. Normal The [facility] Comment on above: Performed By: #### Calvin TABOR ERUR ####[facility] Wesatxhmtm[address] [place], [place] [address]Dr. Donna Malone Glucose Ql (U) Negative Normal NEGATIVE [facility] Comment on above: Performed By: #### WESLY LAUR ####[facility] B[address]kqwtnpwj87[address] [place], [place] [address]Dr. Donna Malone Hemoglobin Ql (U) Negative Normal NEGATIVE [facility] Comment on above: Performed By: #### Calvin TABOR ERUR ####[facility] Uyeldwymrr8[address] [place], [place] [address]Dr. Donna Malone Ketones Ql (U) 15 mg/dl Abnormal NEGATIVE The [facility] Comment on above: Performed By: #### Calvin TABOR ERUR ####[facility] Fxzlielhbh26[address] [place], [place] [address]Dr. Donna Malone LEUKOCYTES Negative Normal NEGATIVE The [facility] Comment on above: Performed By: #### Calvin TABOR, ERUR ####[facility] Xjptahiazt6[address] [place], [place] [address]Dr. Donna Malone Nitrite Ql (U) Negative Normal NEGATIVE The [facility] Comment on above: Performed By: #### D SHARONA, ERUR ####[facility] Ufnjwohhaa5027 [place] [address]Dr. Donna Malone pH (U) 6.0 [pH] Normal 5-9 [facility] Comment on above: Performed By: #### D SHARONA, ERUR ####[facility] Exlpzcpsuz045[address] [place] [address]Dr. Donna Malone SPEC GRAVITY >=1.030 Abnormal 1.005-<=1. 025 [facility] Comment on above: Performed By: #### D SHARONA ERUR ####[facility] Wvqwwslsyu[address] [place] [address]Dr. Donna Malone UA PROTEIN TRACE Normal NEGATIVE/ TRACE [facility] Comment on above: Performed By: #### D SHARONA, ERUR ####[facility] Nqmlexsnwd[address] [place], [place] [address]Dr. Donna Malone UR MICRO IND NOT INDICATED Normal [facility] Comment on above: Performed By: #### D WESLY TABORR ####[facility] Ymdoitxrhh18[address] [place], [place] [address]Dr. Donna Malone Urobilinogen Qn (U) 0.2 {Jermain'U}/dL Normal 0.2 - 1. 0 [facility] Comment on above: Performed By: #### Calvin TABOR, ERUR ####[facility] Trshwiehxb16[address] [place], [place] [address]Dr. Donna Malone ETHANOL (BLD ALC)on 07-15-20 22 ALC NOTE NOTE: 80 mg/dl is th e legal limit for a blood alcohol level Normal [facility] Comment on above: Performed By: #### E TH ####[facility] [address]ibzmiwzi[address] [place], [place] [address]Dr. Donna Malone Ethanol [Mass/Vol] mg/dL Normal [facility] Comment on above: Performed By: #### E TH ####[facility] Vfnaztzvpn[address] [place], [place] [address]Dr. Donna Malone LACTATE/LACTIC ACIDon 2021 Lactate [Moles/Vol] 1.3 mmol/L Normal 0.4-1.9 [facility] Comment on above: Performed By: #### L ACT ####[facility] Psukxxjfnq[address] [place] [address]Dr. Donna Malone PROF 14(COMP METB)on 022 Albumin [Mass/Vol] 2.9 g/dL Critically low 3.4-5.0 Th [facility] Comment on above: Performed By: #### B CARPET OR RUG LAYER HELPER, CMP, CMADM ####[facility] [address]uruuc[address] [place] [address]Dr. Donna Malone Albumin/Globulin [Mass ratio] 0.9 {ratio} Normal [facility] Comment on above: Performed By: #### B CARPET OR RUG LAYER HELPER, CMP, CMADM ####[facility] Nkxidqppvj4876 [place] [address]Dr. Donna Malone ALP [Catalytic activity/Vol] 37 U/L Critically low 46-116 [facility] Comment on above: Performed By: #### B CARPET OR RUG LAYER HELPER, CMP, CMADM ####[facility] Qrusrogpjk1398 [place] [address]Dr. Donna Malone ALT [Catalytic activity/Vol] 10 U/L Critically low 16-63 [facility] [facility] Comment on above: Performed By: #### B CARPET OR RUG LAYER HELPER, CMP, CMADM ####[facility] [address] [place] [address]Dr. Donna Malone Anion gap [Moles/Vol] 8.0 mmol/L Normal [facility] Comment on above: Performed By: #### B CARPET OR RUG LAYER HELPER, CMP, CMADM ####[facility] [address] [place] [address]Dr. Donna Malone AST [Catalytic activity/Vol] 12 U/L Critically low 15-37 [facility] Comment on above: Performed By: #### B CARPET OR RUG LAYER HELPER, CMP, CMADM ####[facility] Zjoerdtk[address] [place] [address]Dr. Donna Malone Bilirubin [Mass/Vol] 0.3 mg/dL Normal 0.2-1.0 [facility] Comment on above: Performed By: #### B CARPET OR RUG LAYER HELPER, CMP, CMADM ####[facility] Cxhwcovmos[address] [place] [address]Dr. Donna Malone Calcium [Mass/Vol] 7.9 mg/dL Critically low 8.5-10.1 Th e [facility] Comment on above: Performed By: #### B CARPET OR RUG LAYER HELPER, CMP, CMADM ####[facility] Tvfe[address]vntd[address] [place] [address]Dr. Donna Malone Chloride [Moles/Vol] 107 mmol/L Normal 98-107 [facility] Comment on above: Performed By: #### B CARPET OR RUG LAYER HELPER, CMP, CMADM ####[facility] Iucuenfokx[address] [place], [place] [address]Dr. Donna Malone CO2 [Moles/Vol] 27.1 mmol/L Normal 21.0-32.0 [facility] Comment on above: Performed By: #### B CARPET OR RUG LAYER HELPER, CMP, CMADM ####[facility] Fynvhurazh8[address] [place], [place] [address]Dr. Donna Malone Creatinine [Mass/Vol] 0.99 mg/dL Normal 0.70-1.30 [facility] Comment on above: Performed By: #### B CARPET OR RUG LAYER HELPER, CMP, CMADM ####[facility] Xgauzsbidj[address] [place], [place] [address]Dr. Donna Malone EGFR-AF LIBERIAN >60 Normal >=60 [facility] Comment on above: Performed By: #### B CARPET OR RUG LAYER HELPER, CMP, CMADM ####[facility] Swbvdtnnii9467[address] [place], [place] [address]Dr. Donna Malone EGFR-NON AF LIBERIAN >60 Normal >=60 [facility] Comment on above: Performed By: #### B CARPET OR RUG LAYER HELPER, CMP, CMADM ####[facility] Mitrilkark3[address] [place], [place] [address]Dr. Donna Malone Globulin (S) [Mass/Vol] 3.3 g/dL Normal The [facility] Comment on above: Performed By: #### B CARPET OR RUG LAYER HELPER, CMP, CMADM ####[facility] Pmpeoioqlj75[address] [place], [place] [address]Dr. Donna Malone Glucose [Mass/Vol] 101 mg/dL Normal 74-106 [facility] Comment on above: Performed By: #### B CARPET OR RUG LAYER HELPER, CMP, CMADM ####[facility] [address]rok[address] [place] [address]Dr. Donna Malone Potassium [Moles/Vol] 4.1 mmol/L Normal 3.5-5.1 [facility] Comment on above: Performed By: #### B CARPET OR RUG LAYER HELPER, CMP, CMADM ####[facility] [address]wrkwft[address] [place] [address]Dr. Donna Malone Protein [Mass/Vol] 6.2 g/dL Critically low 6.4-8.2 Th e [facility] Comment on above: Performed By: #### B CARPET OR RUG LAYER HELPER, CMP, CMADM ####[facility] [address]kt[address]fmpxy[address] [place] [address]Dr. Donna Malone Sodium [Moles/Vol] 138 mmol/L Normal 136-145 [facility] Comment on above: Performed By: #### B CARPET OR RUG LAYER HELPER, CMP, CMADM ####[facility] [address]brsw[address]st[address] [place] [address]Dr. Rubyyvan Malone Urea nitrogen [Mass/Vol] 16.0 mg/dL Normal 7.0-18.0 [facility] Comment on above: Performed By: #### B CARPET OR RUG LAYER HELPER, CMP, CMADM ####[facility] Ztflrqanel[address] [place] [address]Dr. Donna Malone Urea nitrogen/Creatinine [Mass ratio] 16.2 mg/mg Normal [facility] Comment on above: Performed By: #### B CARPET OR RUG LAYER HELPER, CMP, CMADM ####[facility] [address]ns[address]xhk[address] [place] [address]Dr. Donna Malone PROTIMEon 07-15-2022 INR Coag (PPP) [Relative time] 1.06 {INR} Normal The [facility] Comment on above: Performed By: #### P T, PTT ####[facility] [address] [place] [address]Dr. Donna Malone INR GUIDELINES SEE BELOW Normal [facility] Comment on above: Result Comment: FLORESITA RED INR: 2.0 - 3.0 CONDITIONS NOT LISTED BELOW 2.5 - 3.5 FOR PROSTHETIC HEART VALVE REPLACEMENT 2.5 - 3.5 RECURRENT THROMBOSIS Performed By: #### P T, PTT ####[facility] Gsilowxytw4225[address] [place], [place] [address]Dr. Donna Malone PT Coag (PPP) [Time] 11.4 s Normal 9.0-11.6 [facility] Comment on above: Performed By: #### P T, PTT ####[facility] Sazmtouocu0523[address] [place], [place] [address]Dr. Donna Malone PTTon 07-15-2022 aPTT Coag (Bld) [Time] 30.8 s Normal 22.3-36.2 Th [facility] Comment on above: Performed By: #### P T, PTT ####[facility] Opxconwpdn8852[address] [place], [place] [address]Dr. Donna Malone XR CHEST 1 Von 07-15-2022 XR CHEST 1 V Normal The [facility] CULTURE URINEon 06-24-2022 CULTURE URINE Normal The [facility] Comment on above: Performed By: #### U RCX ####[facility] Xkidyfmbvs8863[address] [place], [place] [address]Dr. Donna Malone UA RANDOM W/MICROSCOPICon BACTERIA NONE SEEN Normal NONE SEEN The [facility] Comment on above: Performed By: #### U AMIC ####[facility] Yyfbrsnfuj99[address] [place], [place] [address]Dr. Donna Malone Bilirubin Ql (U) Negative Normal NEGATIVE The [facility] Comment on above: Performed By: #### U AMIC ####[facility] Lofgajfhqu90[address] [place], [place] [address]Dr. Donna Malone CAST NONE SEEN Normal NONE SEEN The [facility] Comment on above: Performed By: #### U AMIC ####[facility] Diezrytfib50[address] [place], [place] [address]Dr. Donna Malone Clarity (U) CLEAR Normal CLEAR The [facility] Comment on above: Performed By: #### U AMIC ####[facility] Uuwncqcusd3[address] [place], [place] [address]Dr. Donna Malone Color (U) DK. YELLOW Normal YELLOW The [facility] Comment on above: Performed By: #### U AMIC ####[facility] O[address]uwto[address] [place] [address]Dr. Donna Malone Crystals LM Nom (Urine sed) NONE SEEN Normal NONE SEEN The [facility] Comment on above: Performed By: #### U AMIC ####[facility] Zlxsiwipep34[address] [place], [place] [address]Dr. Donna Malone Epithelial cells LM Ql (Urine sed) NONE SEEN Normal NONE SEEN /RARE The [facility] Comment on above: Performed By: #### U AMIC ####[facility] Tisdktsqom4810[address] [place], [place] [address]Dr. Donna Malone Glucose Ql (U) 100 mg/dl Abnormal NEGATIVE The [facility] Comment on above: Performed By: #### U AMIC ####[facility] Fleifnttbm[address]216[address] [place], [place] [address]Dr. Donna Malone Hemoglobin Ql (U) Negative Normal NEGATIVE The [facility] Comment on above: Performed By: #### U AMIC ####[facility] Xxolwrnqdq7914[address] [place], [place] [address]Dr. Donna Malone Ketones Ql (U) TRACE Abnormal NEGATIVE The [facility] Comment on above: Performed By: #### U AMIC ####[facility] Jpfsdeukkt924[address] [place], [place] [address]Dr. Donna Malone LEUKOCYTES Negative Normal NEGATIVE The [facility] Comment on above: Performed By: #### U AMIC ####[facility] Keutdirdui36[address] [place], [place] [address]Dr. Donna Malone MUCOUS SMALL Abnormal NONE SEEN The [facility] Comment on above: Performed By: #### U AMIC ####[facility] Dfwottqfat8976[address] [place], [place] [address]Dr. Donna Malone Nitrite Ql (U) Negative Normal NEGATIVE The [facility] Comment on above: Performed By: #### U AMIC ####[facility] Wwtgmdacrh8967[address] [place], [place] [address]Dr. Donna Malone pH (U) 6.0 [pH] Normal 5-9 The [facility] Comment on above: Performed By: #### U AMIC ####[facility] [address] [place] [address]Dr. Donna Malone RBC NONE SEEN Abnormal 0-2 [facility] Comment on above: Performed By: #### U AMIC ####[facility] [address] [place] [id number]. Donna Malone SPEC GRAVITY 1.030 Abnormal 1.005-<=1. 025 [facility] Comment on above: Performed By: #### U AMIC ####[facility] Peef[address]mvxq[address] [place] [address]Dr. Donna Malone UA PROTEIN Negative Normal NEGATIVE/ TRACE [facility] Comment on above: Performed By: #### U AMIC ####[facility] [address]luzc[address] [place] [address]Dr. Donna Malone Urobilinogen Qn (U) 0.2 {Jermain'U}/dL Normal 0.2 - 1. 0 [facility] Comment on above: Performed By: #### U AMIC ####[facility] [address] [place] [address]Dr. Donna Malone WBC 2-5 Abnormal NONE SEEN The [facility] Comment on above: Performed By: #### U AMIC ####[facility] Ja[address]nftj[address] [place] [address]Dr. Donna Malone COMPLIANCE DRUG SCREENon PDF . Normal [facility] Comment on above: Performed By: #### D SDOALC ####[facility] Oealukjwir[address] [place], [place] [address]Dr. Donna Malone Summary FINAL Normal [facility] Comment on above: Result [...] call . Performed By: #### D SDOALC ####[facility] Bluamjifmy6[address] [place], [place] [address]Dr. Donna Malone CBC AUTO DIFFon 05-16-2022 BASO # 0.0 103/ul Normal 0.0-0.1 [facility] Comment on above: Performed By: #### C BC ####[facility] Lidjcyzvor3566[address] [place], [place] [address]Dr. Donna Malone Basophils/100 WBC (Bld) 0.4 % Normal 0.2-2.0 The [facility] Comment on above: Performed By: #### C BC ####[facility] Knizuxwnyt5044[address] [place], [place] [address]Dr. Donna Malone EO # 0.1 103/ul Normal 0.0-0.7 The [facility] Comment on above: Performed By: #### C BC ####[facility] Uqsdqdwhqw2975[address] [place], [place] [address]Dr. Donna Malone Eosinophils/100 WBC (Bld) 0.9 % Normal 0.9-7.0 The [facility] Comment on above: Performed By: #### C BC ####[facility] Vdyosrlmqp0216[address] [place], [place] [address]Dr. Rubyyvan Malone Erythrocyte distribution width (RBC) [Ratio] 14.9 % Normal 11.0-15.0 The [facility] Comment on above: Performed By: #### C BC ####[facility] Adoclycwfv0190[address] [place], [place] [address]Dr. Rubyyvan Malone Hematocrit (Bld) [Volume fraction] 41.0 % Critically low 42.0-54.0 The [facility] Comment on above: Performed By: #### C BC ####[facility] Nzxcvdouab4[address] [place], [place] [address]Dr. Rubyyvan Malone Hemoglobin (Bld) [Mass/Vol] 13.3 g/dL Critically low 14.0-18.0 The [facility] Comment on above: Performed By: #### C BC ####[facility] Anhaqvxnok068[address] [place], [place] [address]Dr. Donna Malone IG # 0.03 10e3/ul Normal 0.00-0.03 The [facility] Comment on above: Performed By: #### C BC ####[facility] Aksnbzontq1300[address] [place], [place] [address]Dr. Donna Malone IG % 0.3 % Normal 0.0-0.5 The [facility] Comment on above: Performed By: #### C BC ####[facility] Qsteviudmx75[address] [place], [place] [address]Dr. Donna Malone LYMPH # 1.4 103/ul Normal 1.2-3.8 The [facility] Comment on above: Performed By: #### C BC ####[facility] Qmwmkzsiac4279[address] [place], [place] [address]Dr. Donna Malone Lymphocytes/100 WBC (Bld) 15.3 % Critically low 20.5-60.0 The [facility] Comment on above: Performed By: #### C BC ####[facility] Aswooijglq3448[address] [place], [place] [address]Dr. Donna Malone MANUAL DIFF REQ NO Normal The [facility] Comment on above: Performed By: #### C BC ####[facility] Ytwvdoairh204[address] [place], [place] [address]Dr. Donna Faisal MCH (RBC) [Entitic mass] 29.4 pg Normal 25.9-34.0 The [facility] Comment on above: Performed By: #### C BC ####[facility] [address] [place] [address]Dr. Donna Malone MCHC (RBC) [Mass/Vol] 32.4 g/dL Normal 29.9-35.2 The [facility] Comment on above: Performed By: #### C BC ####[facility] Aczzakjsrg[address] [place] [address]Dr. Donna Faisal MCV (RBC) [Entitic vol] 90.5 fL Normal 80.0-94.0 The [facility] Comment on above: Performed By: #### C BC ####[facility] R[address]rtmn25[address] [place] [address]Dr. Rubyyvan Malone MONO # 0.8 103/ul Normal 0.3-0.8 The [facility] Comment on above: Performed By: #### C BC ####[facility] Kykogfkzzn55[address] [place] [address]Dr. Rubyyvan Malone Monocytes/100 WBC (Bld) 8.7 % Normal 1.7-12.0 The [facility] Comment on above: Performed By: #### C BC ####[facility] Ytqxewjgam[address] [place] [address]Dr. Donna Malone NEUT # 6.9 103/ul Critically high 1.4-6.5 The [facility] Comment on above: Performed By: #### C BC ####[facility] Imdqdkkhpf58[address] [place] [address]Dr. Rubyyvan Malone Neutrophils/100 WBC (Bld) 74.4 % Normal 43.0-75.0 The [facility] Comment on above: Performed By: #### C BC ####[facility] Zrsfbnrcbx97[address] [place] [address]Dr. Donna Malone Platelet mean volume (Bld) [Entitic vol] 11.9 fL Normal 9.5-13.5 The [facility] Comment on above: Performed By: #### C BC ####[facility] [address]av[address] [place] [address]Dr. Rubyyvan Faisal PLT 174 103/ul Normal 150-450 [facility] Comment on above: Performed By: #### C BC ####[facility] Canfxkntds16[address] [place] [address]Dr. Donna Malone RBC 4.53 106/ul Critically low 4.70-6.10 [facility] Comment on above: Performed By: #### C BC ####[facility] Mzrltumfkx2[address] [place] [address]Dr. Donna Faisal WBC 9.2 103/ul Normal 4.0-11.0 [facility] Comment on above: Performed By: #### C BC ####[facility] Zbdcwnjwse8[address] [place] [address]Dr. Donna Malone PROF 14(COMP METB)on 022 Albumin [Mass/Vol] 3.0 g/dL Critically low 3.4-5.0 [facility] Comment on above: Performed By: #### C MP ####[facility] Oafqnethza3867[address] [place], [place] [address]Dr. Donna Malone Albumin/Globulin [Mass ratio] 0.8 {ratio} Normal [facility] Comment on above: Performed By: #### C MP ####[facility] Guqcnqwzic1282[address] [place], [place] [address]Dr. Donna Malone ALP [Catalytic activity/Vol] 39 U/L Critically low 46-116 [facility] Comment on above: Performed By: #### C MP ####[facility] Giatowbxtm7626[address] [place], [place] [address]Dr. Donna Malone ALT [Catalytic activity/Vol] 16 U/L Normal 16-63 [facility] Comment on above: Performed By: #### C MP ####[facility] Rdvjxferjj8688[address] [place], [place] [address]Dr. Donna Malone Anion gap [Moles/Vol] 10.8 mmol/L Normal [facility] Comment on above: Performed By: #### C MP ####[facility] Pkvpgkycsp4544 [place] [address]Dr. Donna Malone AST [Catalytic activity/Vol] 9 U/L Critically low 15-37 The [facility] Comment on above: Performed By: #### C MP ####[facility] Chvxsfwixw0524[address] [place], [place] [address]Dr. Donna Malone Bilirubin [Mass/Vol] 0.3 mg/dL Normal 0.2-1.0 The [facility] Comment on above: Performed By: #### C MP ####[facility] Lrtjdtupca2113[address] [place], [place] [address]Dr. Donna Malone Calcium [Mass/Vol] 8.8 mg/dL Normal 8.5-10.1 The [facility] Comment on above: Performed By: #### C MP ####[facility] Nytmlklwsx9722[address] [place], [place] [address]Dr. Donna Malone Chloride [Moles/Vol] 105 mmol/L Normal 98-107 The [facility] Comment on above: Performed By: #### C MP ####[facility] Cqyemdctyu5664[address] [place], [place] [address]Dr. Donna Malone CO2 [Moles/Vol] 26.7 mmol/L Normal 21.0-32.0 The [facility] Comment on above: Performed By: #### C MP ####[facility] Bahtsnmplx6[address] [place], [place] [address]Dr. Donna Malone Creatinine [Mass/Vol] 0.97 mg/dL Normal 0.70-1.30 The [facility] Comment on above: Performed By: #### C MP ####[facility] Dzmrdkdclg29[address] [place], [place] [address]Dr. Donna Faisal EGFR-AF LIBERIAN >60 Normal >=60 The [facility] Comment on above: Performed By: #### C MP ####[facility] Gvcmwqvzzh33[address] [place], [place] [address]Dr. Rubyyvan Faisal EGFR-NON AF LIBERIAN >60 Normal >=60 The [facility] Comment on above: Performed By: #### C MP ####[facility] Ocugystjgc726[address] [place], [place] [address]Dr. Yiyvan Malone Globulin (S) [Mass/Vol] 3.7 g/dL Normal The [facility] Comment on above: Performed By: #### C MP ####[facility] Ezvstrlvxp3482 [place] [address]Dr. Donna Malone Glucose [Mass/Vol] 98 mg/dL Normal 74-106 The [facility] Comment on above: Performed By: #### C MP ####[facility] Rxupvkxluo8912 [place] [address]Dr. Donna Malone Potassium [Moles/Vol] 3.5 mmol/L Normal 3.5-5.1 The [facility] Comment on above: Performed By: #### C MP ####[facility] Novdtrzrfy06[address] [place] [address]Dr. Donna Malone Protein [Mass/Vol] 6.7 g/dL Normal 6.4-8.2 The [facility] Comment on above: Performed By: #### C MP ####[facility] Grwxkcosig350[address] [place], [place] [address]Dr. Donna Malone Sodium [Moles/Vol] 139 mmol/L Normal 136-145 The [facility] Comment on above: Performed By: #### C MP ####[facility] Iznalqotqw2947[address] [place], [place] [address]Dr. Donna Malone Urea nitrogen [Mass/Vol] 11.0 mg/dL Normal 7.0-18.0 The [facility] Comment on above: Performed By: #### C MP ####[facility] Nuwaxbpksv4333[address] [place], [place] [address]Dr. Donna Malone Urea nitrogen/Creatinine [Mass ratio] 11.3 mg/mg Normal The [facility] Comment on above: Performed By: #### C MP ####[facility] Bdvgecktsp[address] [place] [address]Dr. Donna Malone T3, TOTAL (TRIIODOTHYRONINE) on 05-16-2022 T3, TOTAL 86 ng/dL Normal 71-180 The [facility] Comment on above: Performed By: #### T 3TOTAL ####[facility] Fixopwtmzz4650[address] [place], [place] [address]Dr. Donna Malone T4 LABCORPon 05-16-2022 T4 [Mass/Vol] 6.4 ug/dL Normal 4.5-12.0 The [facility] Comment on above: Performed By: #### T 4LC ####[facility] Bdvbtosmet[address] [place] [address]Dr. Donna Malone CBC AUTO DIFFon 05-15-2022 BASO # 0.0 103/ul Normal 0.0-0.1 The [facility] Comment on above: Performed By: #### C BC ####[facility] Wjdpiimxxl4[address] [place], [place] [address]Dr. Donna Faisal Basophils/100 WBC (Bld) 0.3 % Normal 0.2-2.0 The [facility] Comment on above: Performed By: #### C BC ####[facility] K[address]yswytazv06[address] [place], [place] [address]Dr. Rubyyvan Malone EO # 0.2 103/ul Normal 0.0-0.7 The [facility] Comment on above: Performed By: #### C BC ####[facility] Avglmpengk1966[address] [place], [place] [address]Dr. Donna Malone Eosinophils/100 WBC (Bld) 2.0 % Normal 0.9-7.0 The [facility] Comment on above: Performed By: #### C BC ####[facility] Wygyojcivr2447[address] [place], [place] [address]Dr. Donna Malone Erythrocyte distribution width (RBC) [Ratio] 14.6 % Normal 11.0-15.0 The [facility] Comment on above: Performed By: #### C BC ####[facility] Rwschmielr5[address] [place], [place] [address]Dr. Donna Malone Hematocrit (Bld) [Volume fraction] 38.2 % Critically low 42.0-54.0 The [facility] Comment on above: Performed By: #### C BC ####[facility] Kdqrcrvttp[address] [place], [place] [address]Dr. Donna Malone Hemoglobin (Bld) [Mass/Vol] 12.7 g/dL Critically low 14.0-18.0 The [facility] Comment on above: Performed By: #### C BC ####[facility] [address]neze[address] [place] [address]Dr. Donna Malone IG # 0.04 10e3/ul Critically high 0.00-0.03 [facility] Comment on above: Performed By: #### C BC ####[facility] Rcgdvubeqh[address] [place] [address]Dr. Donna Malone IG % 0.4 % Normal 0.0-0.5 [facility] Comment on above: Performed By: #### C BC ####[facility] Ahpcxuymfk[address] [place] [address]Dr. Donna Malone LYMPH # 1.4 103/ul Normal 1.2-3.8 The [facility] Comment on above: Performed By: #### C BC ####[facility] Dbthjgbcpc4701 [place] [address]Dr. Rubyyvan Malone Lymphocytes/100 WBC (Bld) 14.9 % Critically low 20.5-60.0 [facility] Comment on above: Performed By: #### C BC ####[facility] Spughobivn[address] [place] [address]Dr. Donna Malone MANUAL DIFF REQ NO Normal [facility] Comment on above: Performed By: #### C BC ####[facility] Rhfqdmjpfe[address] [place], [place] [address]Dr. Donna Malone MCH (RBC) [Entitic mass] 30.0 pg Normal 25.9-34.0 The [facility] Comment on above: Performed By: #### C BC ####[facility] Dbdryoxfvi8462[address] [place], [place] [address]Dr. Donna Malone MCHC (RBC) [Mass/Vol] 33.2 g/dL Normal 29.9-35.2 The [facility] Comment on above: Performed By: #### C BC ####[facility] Vgmokvvibz9699[address] [place], [place] [address]Dr. Donna Malone MCV (RBC) [Entitic vol] 90.3 fL Normal 80.0-94.0 The [facility] Comment on above: Performed By: #### C BC ####[facility] Zedx[address]ethf[address] [place] [address]Dr. Donna Malone MONO # 0.8 103/ul Normal 0.3-0.8 The [facility] Comment on above: Performed By: #### C BC ####[facility] K[address]riqpmtia90[address] [place] [address]Dr. Donna Malone Monocytes/100 WBC (Bld) 8.5 % Normal 1.7-12.0 The [facility] Comment on above: Performed By: #### C BC ####[facility] Qobwjmbouq4[address] [place] [address]Dr. Donna Malone NEUT # 6.8 103/ul Critically high 1.4-6.5 The [facility] Comment on above: Performed By: #### C BC ####[facility] Ltsuxztzbx[address]25[address] [place], [place] [address]Dr. Donna Malone Neutrophils/100 WBC (Bld) 73.9 % Normal 43.0-75.0 The [facility] Comment on above: Performed By: #### C BC ####[facility] [address]vcwgmuugr[address] [place] [address]Dr. Donna Malone Platelet mean volume (Bld) [Entitic vol] 12.0 fL Normal 9.5-13.5 The [facility] Comment on above: Performed By: #### C BC ####[facility] Btddnzbvrp76[address] [place] [address]Dr. Donna Malone PLT 154 103/ul Normal 150-450 The [facility] Comment on above: Performed By: #### C BC ####[facility] [address]ucchxqiat[address] [place], [place] [address]Dr. Donna Malone RBC 4.23 106/ul Critically low 4.70-6.10 The [facility] Comment on above: Performed By: #### C BC ####[facility] Dzpcrqnmol60[address] [place] [address]Dr. Donna Malone WBC 9.2 103/ul Normal 4.0-11.0 The [facility] Comment on above: Performed By: #### C BC ####[facility] [address]wjlbkvf[address] [place], [place] [address]Dr. Donna Malone PROF 14(COMP METB)on 022 Albumin [Mass/Vol] 2.9 g/dL Critically low 3.4-5.0 [facility] Comment on above: Performed By: #### C MP ####[facility] Qikgdnlwro[address] [place], [place] [address]Dr. Donna Malone Albumin/Globulin [Mass ratio] 0.9 {ratio} Normal [facility] Comment on above: Performed By: #### C MP ####[facility] Krvnuhpzpq7[address] [place], [place] [address]Dr. Donna Malone ALP [Catalytic activity/Vol] 41 U/L Critically low 46-116 [facility] Comment on above: Performed By: #### C MP ####[facility] Qdibcprvfa17[address] [place], [place] [address]Dr. Donna Malone ALT [Catalytic activity/Vol] 12 U/L Critically low 16-63 [facility] Comment on above: Performed By: #### C MP ####[facility] Fpfrqtouzq[address] [place], [place] [address]Dr. Donna Malone Anion gap [Moles/Vol] 5.6 mmol/L Normal [facility] Comment on above: Performed By: #### C MP ####[facility] Lsowilphsp[address] [place], [place] [address]Dr. Donna Malone AST [Catalytic activity/Vol] 8 U/L Critically low 15-37 [facility] Comment on above: Performed By: #### C MP ####[facility] Yojksklvtg[address] [place], [place] [address]Dr. Donna Malone Bilirubin [Mass/Vol] 0.5 mg/dL Normal 0.2-1.0 [facility] Comment on above: Performed By: #### C MP ####[facility] Scdqglddbn60[address] [place], [place] [address]Dr. Donna Malone Calcium [Mass/Vol] 8.3 mg/dL Critically low 8.5-10.1 Th [facility] Comment on above: Performed By: #### C MP ####[facility] [address] [place] [id number]. Donna Malone Chloride [Moles/Vol] 106 mmol/L Normal 98-107 The [facility] Comment on above: Performed By: #### C MP ####[facility] [address]zexcptpmf[address] [place] [address]Dr. Donna Malone CO2 [Moles/Vol] 23.1 mmol/L Normal 21.0-32.0 The [facility] Comment on above: Performed By: #### C MP ####[facility] Tlbesdifsq34[address] [place] [address]Dr. Donna Malone Creatinine [Mass/Vol] 0.82 mg/dL Normal 0.70-1.30 The [facility] Comment on above: Performed By: #### C MP ####[facility] Jtmovdtdbu[address] [place] [address]Dr. Donna Faisal EGFR-AF LIBERIAN >60 Normal >=60 The [facility] Comment on above: Performed By: #### C MP ####[facility] [address]ieslhuta[address] [place] [address]Dr. Donna Malone EGFR-NON AF LIBERIAN >60 Normal >=60 The [facility] Comment on above: Performed By: #### C MP ####[facility] Geqvduifiq[address] [place] [address]Dr. Donna Faisal Globulin (S) [Mass/Vol] 3.2 g/dL Normal The [facility] Comment on above: Performed By: #### C MP ####[facility] Mpiztjfjqc[address] [place] [address]Dr. Donna Faisal Glucose [Mass/Vol] 81 mg/dL Normal 74-106 The [facility] Comment on above: Performed By: #### C MP ####[facility] Rbetdojjhe87[address] [place], [place] [address]Dr. Donna Malone Potassium [Moles/Vol] 3.7 mmol/L Normal 3.5-5.1 The [facility] Comment on above: Performed By: #### C MP ####[facility] Lxplsrkzgo4617[address] [place], [place] [address]Dr. Donna Malone Protein [Mass/Vol] 6.1 g/dL Critically low 6.4-8.2 Th [facility] Comment on above: Performed By: #### C MP ####[facility] Uliumjytal6[address] [place], [place] [address]Dr. Donna Malone Sodium [Moles/Vol] 131 mmol/L Critically low 136-145 Th [facility] Comment on above: Performed By: #### C MP ####[facility] Rqkkxbbxgf32[address] [place], [place] [address]Dr. Donna Malone Urea nitrogen [Mass/Vol] 17.0 mg/dL Normal 7.0-18.0 [facility] Comment on above: Performed By: #### C MP ####[facility] Hynzaikcze7[address] [place], [place] [address]Dr. Donna Malone Urea nitrogen/Creatinine [Mass ratio] 20.7 mg/mg Normal [facility] Comment on above: Performed By: #### C MP ####[facility] Xbyjivnfnd4838[address] [place], [place] [address]Dr. Donna Malone CBC AUTO DIFFon 05-14-2022 BASO # 0.1 103/ul Normal 0.0-0.1 [facility] Comment on above: Performed By: #### C BC ####[facility] Swwqfvfqah8988[address] [place], [place] [address]Dr. Donna Malone Basophils/100 WBC (Bld) 0.8 % Normal 0.2-2.0 The [facility] Comment on above: Performed By: #### C BC ####[facility] Tdjjonujtn6879[address] [place], [place] [address]Dr. Donna Malone EO # 0.3 103/ul Normal 0.0-0.7 The [facility] Comment on above: Performed By: #### C BC ####[facility] Hapebmrlwm8569[address] [place], [place] [address]Dr. Donna Malone Eosinophils/100 WBC (Bld) 4.2 % Normal 0.9-7.0 The [facility] Comment on above: Performed By: #### C BC ####[facility] Uhufyrwizr5430[address] [place], [place] [address]Dr. Rubyyvan Malone Erythrocyte distribution width (RBC) [Ratio] 14.7 % Normal 11.0-15.0 The [facility] Comment on above: Performed By: #### C BC ####[facility] Lnjlqglzpa97[address] [place], [place] [address]Dr. Donna Malone Hematocrit (Bld) [Volume fraction] 36.5 % Critically low 42.0-54.0 The [facility] Comment on above: Performed By: #### C BC ####[facility] Rdoqupgwhy1116[address] [place], [place] [address]Dr. Donna Malone Hemoglobin (Bld) [Mass/Vol] 11.9 g/dL Critically low 14.0-18.0 The [facility] Comment on above: Performed By: #### C BC ####[facility] Juvlsoedju2[address] [place], [place] [address]Dr. Donna Malone IG # 0.01 10e3/ul Normal 0.00-0.03 The [facility] Comment on above: Performed By: #### C BC ####[facility] Coroqnrvsx2670[address] [place], [place] [address]Dr. Donna Malone IG % 0.2 % Normal 0.0-0.5 The [facility] Comment on above: Performed By: #### C BC ####[facility] Egsirahsnz4057[address] [place], [place] [address]Dr. Donna Malone LYMPH # 2.1 103/ul Normal 1.2-3.8 The [facility] Comment on above: Performed By: #### C BC ####[facility] Jlxcjncxlv6645[address] [place], [place] [address]Dr. Donna Malone Lymphocytes/100 WBC (Bld) 32.1 % Normal 20.5-60.0 The [facility] Comment on above: Performed By: #### C BC ####[facility] Mmvhfcmurx04[address] [place], [place] [address]Dr. Donna Malone MANUAL DIFF REQ NO Normal The [facility] Comment on above: Performed By: #### C BC ####[facility] Itzxlwnqfh175[address] [place], [place] [address]Dr. Donna Faisal MCH (RBC) [Entitic mass] 29.7 pg Normal 25.9-34.0 The [facility] Comment on above: Performed By: #### C BC ####[facility] P[address]zcv[address] [place] [address]Dr. Donna Malone MCHC (RBC) [Mass/Vol] 32.6 g/dL Normal 29.9-35.2 The [facility] Comment on above: Performed By: #### C BC ####[facility] Itkqqndawt24[address] [place] [address]Dr. Donna Faisal MCV (RBC) [Entitic vol] 91.0 fL Normal 80.0-94.0 The [facility] Comment on above: Performed By: #### C BC ####[facility] Ojlqmbjaiq[address] [place] [address]Dr. Donna Malnoe MONO # 0.5 103/ul Normal 0.3-0.8 The [facility] Comment on above: Performed By: #### C BC ####[facility] Cjkqysquda58[address] [place] [address]Dr. Rubyyvan Malone Monocytes/100 WBC (Bld) 8.1 % Normal 1.7-12.0 The [facility] Comment on above: Performed By: #### C BC ####[facility] Ligbdqjpuv01[address] [place] [address]Dr. Donna Faisal NEUT # 3.5 103/ul Normal 1.4-6.5 The [facility] Comment on above: Performed By: #### C BC ####[facility] Gfgrfylevc4370 [place] [address]Dr. Donna Malone Neutrophils/100 WBC (Bld) 54.6 % Normal 43.0-75.0 The [facility] Comment on above: Performed By: #### C BC ####[facility] Ekeihjpycw79[address] [place] [address]Dr. Donna Malone Platelet mean volume (Bld) [Entitic vol] 12.0 fL Normal 9.5-13.5 The [facility] Comment on above: Performed By: #### C BC ####[facility] [address]utzh[address] [place] [address]Dr. Donan Malone PLT 152 103/ul Normal 150-450 [facility] Comment on above: Performed By: #### C BC ####[facility] Vclfovpgfy0907 [place] [address]Dr. Donna Malone RBC 4.01 106/ul Critically low 4.70-6.10 [facility] Comment on above: Performed By: #### C BC ####[facility] Gnaxxuygdy[address] [place] [address]Dr. Rubyyvan Malone WBC 6.4 103/ul Normal 4.0-11.0 [facility] Comment on above: Performed By: #### C BC ####[facility] Dvexkrxezh237[address] [place], [place] [address]Dr. Donna Malone DEPAKENE/VALPROICon 05-14-20 22 DEPAKENE 17.3 ug/ml Critically low 50.0-100.0 [facility] Comment on above: Performed By: #### V ALP ####[facility] Cmurmpyweg7836[address] [place], [place] [address]Dr. Donna Malone POINT OF CARE GLUCOSEon Glucose [Mass/Vol] 89 mg/dL Normal 74-106 [facility] Comment on above: Performed By: #### P OCGLUC ####[facility] Zfgmmbkoqi5[address] [place] [address]Dr. Donna Malone PROF CHEM 8 (BAS METB)on Anion gap [Moles/Vol] 13.6 mmol/L Normal [facility] Comment on above: Performed By: #### B MP ####[facility] Icjkelqpjj1196[address] [place], [place] [address]Dr. Donna Malone Calcium [Mass/Vol] 7.8 mg/dL Critically low 8.5-10.1 [facility] Comment on above: Performed By: #### B MP ####[facility] Zxwmnutobm8593[address] [place], [place] [address]Dr. Donna Malone Chloride [Moles/Vol] 112 mmol/L Critically high 98-107 [facility] Comment on above: Performed By: #### B MP ####[facility] Dfacqhmaxt5093 [place] [address]Dr. Donna Malone CO2 [Moles/Vol] 22.5 mmol/L Normal 21.0-32.0 The [facility] Comment on above: Performed By: #### B MP ####[facility] Tthkmvhzkk8774 [place] [address]Dr. Donna Malone Creatinine [Mass/Vol] 1.01 mg/dL Normal 0.70-1.30 The [facility] Comment on above: Performed By: #### B MP ####[facility] Ejigwvaskq5866[address] [place], [place] [address]Dr. Rubyyvan Faisal EGFR-AF LIBERIAN >60 Normal >=60 The [facility] Comment on above: Performed By: #### B MP ####[facility] Abzxaobuop8[address] [place], [place] [address]Dr. Rubyyvan Faisal EGFR-NON AF LIBERIAN >60 Normal >=60 The [facility] Comment on above: Performed By: #### B MP ####[facility] Lninavxgyx2352[address] [place], [place] [address]Dr. Donna Faisal Glucose [Mass/Vol] 84 mg/dL Normal 74-106 The [facility] Comment on above: Performed By: #### B MP ####[facility] Dwgxzuhtmh5733[address] [place], [place] [address]Dr. Rubyyvan Faisal Potassium [Moles/Vol] 4.1 mmol/L Normal 3.5-5.1 The [facility] Comment on above: Performed By: #### B MP ####[facility] Zmgfrgsxho1576[address] [place], [place] [address]Dr. Rubyyvan Malone Sodium [Moles/Vol] 144 mmol/L Normal 136-145 The [facility] Comment on above: Performed By: #### B MP ####[facility] Vbqudpheho8112[address] [place], [place] [address]Dr. Rubyyvan Faisal Urea nitrogen [Mass/Vol] 21.0 mg/dL Critically high 7.0-18.0 The [facility] Comment on above: Performed By: #### B MP ####[facility] [address]rtxmg[address] [place] [address]Dr. Donna Malone Urea nitrogen/Creatinine [Mass ratio] 20.8 mg/mg Normal [facility] Comment on above: Performed By: #### B MP ####[facility] Dbmatbjecz3004[address] [place], [place] [address]Dr. Donna Malone TSHon 05-14-2022 TSH 1.086 uIU/mL Normal 0.358-3.74 0 [facility] Comment on above: Performed By: #### T SH ####[facility] Deqksiexjq1317[address] [place], [place] [address]Dr. Donna Malone BLOOD GASES BTYon 05-13-2022 02 MODE ROOM AIR [facility] Comment on above: Performed By: #### A BG ####[facility] Gswogfqyfb2264[address] [place], [place] [address]Dr. Donna Malone ALLENS TEST Positive [facility] Comment on above: Performed By: #### A BG ####[facility] Zfssoexpbn26216[address] [place], [place] [address]Dr. Donna Malone Base excess Calc (Bld) [Moles/Vol] -2.5000 mmol/L Critically low -2.0-2.0 [facility] Comment on above: Performed By: #### A BG ####[facility] Mmpgzuwfhp4294[address] [place], [place] [address]Dr. Donna Malone BIPAP PRESSURE Normal [facility] Comment on above: Performed By: #### A BG ####[facility] Qgtmfuemkg5742[address] [place], [place] [address]Dr. Donna Malone CPAP Normal [facility] Comment on above: Performed By: #### A BG ####[facility] Wgjtnaoacw9367[address] [place], [place] [address]Dr. Donna Malone FIO2 Normal The [facility] Comment on above: Performed By: #### A BG ####[facility] Uuvttzpbjz0901[address] [place], [place] [address]Dr. Donna Malone HCO3 (Bld) [Moles/Vol] 22.4 mmol/L Normal 22.0-26.0 T [facility] Comment on above: Performed By: #### A BG ####[facility] [address]qiuwn[address] [place] [address]Dr. Donna Malone LPM [facility] Comment on above: Performed By: #### A BG ####[facility] Qrfxlfycfh95[address] [place], [place] [address]Dr. Donna Malone MINUTE VOLUME Normal [facility] Comment on above: Performed By: #### A BG ####[facility] Qxbrjbyjna9975[address] [place], [place] [address]Dr. Donna Malone Oxygen (Bld) [Partial pressure] 77.6 mm[Hg] Critically low 80.0-100.0 [facility] Comment on above: Performed By: #### A BG ####[facility] Gmujrljoxu3467[address] [place], [place] [address]Dr. Donna Malone Oxygen saturation in Blood 95.5 % Normal 95.0-100.0 [facility] Comment on above: Performed By: #### A BG ####[facility] Gjuoyxllbf4120[address] [place], [place] [address]Dr. Donna Malone PCO2 40.8 mmHg Normal 35.0-45.0 [facility] Comment on above: Performed By: #### A BG ####[facility] Npclwktfns[address] [place], [place] [address]Dr. Donna Malone PEEP [facility] Comment on above: Performed By: #### A BG ####[facility] Mrbgbftevp7967[address] [place], [place] [address]Dr. Donna Malone pH (Bld) 7.359 [pH] Normal 7.350-7.45 0 [facility] Comment on above: Performed By: #### A BG ####[facility] Sqnmbteiet5385[address] [place], [place] [address]Dr. Donna Malone PIP [facility] Comment on above: Performed By: #### A BG ####[facility] Rutgpzzxeb5239[address] [place], [place] [address]Dr. Donna Malone PS [facility] Comment on above: Performed By: #### A BG ####[facility] Zzirlhjnks59[address] [place] [address]Dr. Donna Malone PUNCTURE SITE RR Normal [facility] Comment on above: Performed By: #### A BG ####[facility] Cekglydozc2786 [place] [address]Dr. Donna Malone RATE Normal [facility] Comment on above: Performed By: #### A BG ####[facility] Hhuztngdvg59[address] [place] [address]Dr. Donna Malone VENT MODE [facility] Comment on above: Performed By: #### A BG ####[facility] Vxvlmnchay0458 [place] [address]Dr. Donna Malone VT [facility] Comment on above: Performed By: #### A BG ####[facility] Djpqqumfvm9739 [place] [address]Dr. Donna Malone BNPon 05-13-2022 Natriuretic peptide B (Bld) [Mass/Vol] 156.0 pg/mL Normal <=900.0 [facility] Comment on above: Performed By: #### C MP, CMADM, BNP ####[facility] Ntofdexcvh7060 [place] [address]Dr. Donna Malone CARDIAC MJ ADMITon 022 CK [Catalytic activity/Vol] 119 U/L Normal 39-308 [facility] Comment on above: Performed By: #### C MP, CMADM, BNP ####[facility] Ffjefeomre1718 [place] [address]Dr. Donna Malone CK.MB [Mass/Vol] 1.27 ng/mL Normal <=3.60 [facility] Comment on above: Performed By: #### C MP, CMADM, BNP ####[facility] Jtydaxwfis2874[address] [place], [place] [address]Dr. Rubyyvan Malone HSTROP 7.9 pg/mL Normal 4.0-76.1 [facility] Comment on above: Result Comment: CUT- OFF POINTS HAVE BEEN ESTABLISHED BASED ON THE FOURTH UNIVERSAL DEFINITIONS OF MYOCARDIALINFARCTION. THE UPPER REFERENCE LIMIT (URL) OF TROPONIN, DEFINED THE 99TH PERCENTILE OFcTnI DISTRIBUTION IN A REFERENCE POPULATION, HAS BEEN CONFIRMED THE DECISION THRESHOLDFOR [place] DIAGNOSIS. Performed By: #### C MP, CMADM, BNP ####[facility] Cvoqjhoqgz01[address] [place] [address]Dr. Donna Malone BINDU 111 ng/mL Critically high 16-96 The [facility] Comment on above: Performed By: #### C MP, CMADM, BNP ####[facility] Fqojieeczp9040 [place] [address]Dr. Rubyyvan Malone CBC AUTO DIFFon 05-13-2022 BASO # 0.1 103/ul Normal 0.0-0.1 The [facility] Comment on above: Performed By: #### C BC ####[facility] Aamdceucft2740[address] [place], [place] [address]Dr. Donna Malone Basophils/100 WBC (Bld) 0.8 % Normal 0.2-2.0 The [facility] Comment on above: Performed By: #### C BC ####[facility] Lpfwuezpof55[address] [place], [place] [address]Dr. Donna Malone EO # 0.1 103/ul Normal 0.0-0.7 The [facility] Comment on above: Performed By: #### C BC ####[facility] Wgykugjcsb4864[address] [place], [place] [address]Dr. Donna Malone Eosinophils/100 WBC (Bld) 1.8 % Normal 0.9-7.0 The [facility] Comment on above: Performed By: #### C BC ####[facility] Dnametuxpm1345[address] [place], [place] [address]Dr. Donna Malone Erythrocyte distribution width (RBC) [Ratio] 14.7 % Normal 11.0-15.0 The [facility] Comment on above: Performed By: #### C BC ####[facility] Xtjxwkfinu5326[address] [place], [place] [address]Dr. Donna Malone Hematocrit (Bld) [Volume fraction] 38.2 % Critically low 42.0-54.0 The [facility] Comment on above: Performed By: #### C BC ####[facility] Dqimvzmdfz8508 [place] [address]Dr. Donna Malone Hemoglobin (Bld) [Mass/Vol] 12.7 g/dL Critically low 14.0-18.0 The [facility] Comment on above: Performed By: #### C BC ####[facility] Ecccybmutr0168 [place] [address]Dr. Donna Malone IG # 0.03 10e3/ul Normal 0.00-0.03 The [facility] Comment on above: Performed By: #### C BC ####[facility] Utsufvhnio1885 [place] [address]Dr. Donna Malone IG % 0.4 % Normal 0.0-0.5 The [facility] Comment on above: Performed By: #### C BC ####[facility] Lwyniqfmvt7886[address] [place], [place] [address]Dr. Donna Malone LYMPH # 1.6 103/ul Normal 1.2-3.8 The [facility] Comment on above: Performed By: #### C BC ####[facility] Pqxwzthhlq7[address] [place], [place] [address]Dr. Donna Malone Lymphocytes/100 WBC (Bld) 22.8 % Normal 20.5-60.0 The [facility] Comment on above: Performed By: #### C BC ####[facility] Lscaxorpgp036[address] [place], [place] [address]Dr. Donna Malone MANUAL DIFF REQ NO Normal The [facility] Comment on above: Performed By: #### C BC ####[facility] Purwqpygko3515[address] [place], [place] [address]Dr. Donna Malone MCH (RBC) [Entitic mass] 30.2 pg Normal 25.9-34.0 The [facility] Comment on above: Performed By: #### C BC ####[facility] Tnjrlmoxcp2839[address] [place], [place] [address]Dr. Donna Faisal MCHC (RBC) [Mass/Vol] 33.2 g/dL Normal 29.9-35.2 The [facility] Comment on above: Performed By: #### C BC ####[facility] Ippizlfwvs1897[address] [place], [place] [address]Dr. Donna Faisal MCV (RBC) [Entitic vol] 91.0 fL Normal 80.0-94.0 The [facility] Comment on above: Performed By: #### C BC ####[facility] Kxcaevqjgy19[address] [place] [address]Dr. Donna Malone MONO # 0.7 103/ul Normal 0.3-0.8 The [facility] Comment on above: Performed By: #### C BC ####[facility] Dzkulwwgrj2658[address] [place], [place] [address]Dr. Rubyyvan Malone Monocytes/100 WBC (Bld) 9.1 % Normal 1.7-12.0 The [facility] Comment on above: Performed By: #### C BC ####[facility] Jdwhndbzfz4827[address] [place], [place] [address]Dr. Donna Malone NEUT # 4.7 103/ul Normal 1.4-6.5 The [facility] Comment on above: Performed By: #### C BC ####[facility] Ysraszdubl4073[address] [place], [place] [address]Dr. Rubyyvan Malone Neutrophils/100 WBC (Bld) 65.1 % Normal 43.0-75.0 The [facility] Comment on above: Performed By: #### C BC ####[facility] Qazarujrhr2494[address] [place], [place] [address]Dr. Donna Malone Platelet mean volume (Bld) [Entitic vol] 11.8 fL Normal 9.5-13.5 The [facility] Comment on above: Performed By: #### C BC ####[facility] Afxfmsjyfo7556[address] [place], [place] [address]Dr. Donna Malone PLT 179 103/ul Normal 150-450 [facility] Comment on above: Performed By: #### C BC ####[facility] Tkavmpcjsq8[address] [place], [place] [address]DrElizabeth Malone RBC 4.20 106/ul Critically low 4.70-6.10 The [facility] Comment on above: Performed By: #### C BC ####[facility] Nrbvwuasxu25[address] [place], [place] [address]DrElizabeth Malone WBC 7.2 103/ul Normal 4.0-11.0 The [facility] Comment on above: Performed By: #### C BC ####[facility] Xuuuexiwia88[address] [place], [place] [address]XvElizabeth Donna Malone CT STROKE HEAD WOon 05-13-[address] STROKE HEAD WO Normal [facility] Covid-19 PCR (CVDTB)on SARS-CoV-2 (COVID-19) RNA JOSÉ MIGUEL+probe Ql (Unsp spec) Not detected Normal NOT DETECTED The [facility] Comment on above: Result Comment: When [...] for this test is supported by the [place] [employer] and [employer] Service's declaration that [...] be used). Performed By: #### C VDTBH ####[facility] Mxnmsbzibs5368 [place], [place] [address]TzElizabeth Malone DEPAKENE/VALPROICon 05-13-20 22 DEPAKENE 16.9 ug/ml Critically low 50.0-100.0 The [facility] Comment on above: Performed By: #### V ALP ####[facility] Vxnbgwacsh4188 [place], [place] [address]OyElizabeth Malone DRUG SCREEN RAPID (URINE)on 05-13-2022 AMP Negative Normal NEGATIVE [facility] Comment on above: Performed By: #### D RUGRPD ####[facility] Agqbjwndys2122 [place], [place] [address]MjElizabeth Malone BAR Negative Normal NEGATIVE The [facility] Comment on above: Performed By: #### D RUGRPD ####[facility] D[address]hhdfaz4[address] [place] [address]Dr. Donna Malone BUP Negative Normal NEGATIVE The [facility] Comment on above: Performed By: #### D RUGRPD ####[facility] Jbyzipuxjc12[address] [place] [address]Dr. Donna Malone BZO Positive Abnormal NEGATIVE The [facility] Comment on above: Performed By: #### D RUGRPD ####[facility] Jewvpomwtu[address] [place] [address]Dr. Donna Malone EVONNE Positive Abnormal NEGATIVE The [facility] Comment on above: Performed By: #### D RUGRPD ####[facility] Enhjzfypho39[address] [place], [place] [address]Dr. Donna Malone CUT-OFFS SEE BELOW Normal The [facility] Comment on above: Result Comment: AMP (Amphetamine): 500ng/mL, BAR (Barbituates): 200 ng/mL, BZO (Benzodiazepines): 150 ng/mL, BUP (Buprenorphine): 10 ng/mL, EVONNE (Cocaine): 150 ng/mL, mAMP (Methamphetamine): 500 ng/mL, MTD (Methadone): 200 ng/mL, OPI (Opiates): 100 ng/mL, OXY (Oxycodone): 100 ng/mL, PCP (Phencyclidine): 25 ng/mL, PPX (Propoxyphene): 300 ng/mL, THC (Cannabinoids): 50 ng/mL, TCA (Trycyclic Antidepressants): 300 ng/mL Performed By: #### D RUGRPD ####[facility] Mygitpzglv[address] [place] [address]Dr. Donna Malone DRUG CUT HEADER DRUG CLASS TEST SYST EM CUT-OFF CONCENTRATIONS ARE FOLLOWS: Normal The [facility] Comment on above: Performed By: #### D RUGRPD ####[facility] Fdopkforqr7[address] [place] [address]Dr. Donna Malone mAMP Negative Normal NEGATIVE The [facility] Comment on above: Performed By: #### D RUGRPD ####[facility] Ttieplveyb9851 [place] [address]Dr. Donna Malone MTD Negative Normal NEGATIVE The [facility] Comment on above: Performed By: #### D RUGRPD ####[facility] Oxdvhdmgjb5657 [place] [address]Dr. Donna Faisal OPI Positive Abnormal NEGATIVE The [facility] Comment on above: Performed By: #### D RUGRPD ####[facility] Leudxezwqi4404 [place] [address]Dr. Yiyvan Malone OXY Negative Normal NEGATIVE The [facility] Comment on above: Performed By: #### D RUGRPD ####[facility] [address]ek[address] [place], [place] [address]Dr. Rubyyvan Malone PCP Negative Normal NEGATIVE The [facility] Comment on above: Performed By: #### D RUGRPD ####[facility] Zpqxevhgmg[address] [place], [place] [address]Dr. Rubyyvan Malone PPX Negative Normal NEGATIVE The [facility] Comment on above: Performed By: #### D RUGRPD ####[facility] Qewgapxxlc[address] [place], [place] [address]Dr. Donna Malone TCA Positive Abnormal NEGATIVE The [facility] Comment on above: Performed By: #### D RUGRPD ####[facility] [address]veqrzkdx[address] [place] [address]Dr. Donna Faisal THC Negative Normal NEGATIVE The [facility] Comment on above: Performed By: #### D RUGRPD ####[facility] R[address] [place], [place] [address]Dr. Donna Faisal ER URINE PROFILEon 2 Bilirubin Ql (U) MODERATE Abnormal NEGATIVE The [facility] Comment on above: Performed By: #### E RUR ####[facility] [address] [place], [place] [address]Dr. Donna Malone Clarity (U) SL CLOUDY Abnormal CLEAR The [facility] Comment on above: Performed By: #### E RUR ####[facility] Osfx[address]ciok[address] [place], [place] [address]Dr. Donna Malone Color (U) DK. YELLOW Normal YELLOW The [facility] Comment on above: Performed By: #### E RUR ####[facility] Hzfjoojfxw[address] [place], [place] [address]Dr. Donna ARCE A micrscopic examina tion will be performed if indicated. Normal The [facility] Comment on above: Performed By: #### E RUR ####[facility] Pswnejqsb[address] [place], [place] [address]Dr. Donna Malone Glucose Ql (U) 250 mg/dl Abnormal NEGATIVE The [facility] Comment on above: Performed By: #### E RUR ####[facility] Q[address]yq[address]ruf[address] [place], [place] [address]Dr. Donna Malone Hemoglobin Ql (U) Negative Normal NEGATIVE The [facility] Comment on above: Performed By: #### E RUR ####[facility] Vhrgzmzxyo64[address] [place], [place] [address]Dr. Donna Malone Ketones Ql (U) TRACE Abnormal NEGATIVE The [facility] Comment on above: Performed By: #### E RUR ####[facility] J[address]ciycsqx[address] [place], [place] [address]Dr. Donna Malone LEUKOCYTES Negative Normal NEGATIVE The [facility] Comment on above: Performed By: #### E RUR ####[facility] Uflqpinuy[address] [place], [place] [address]Dr. Donna Malone Nitrite Ql (U) Negative Normal NEGATIVE The [facility] Comment on above: Performed By: #### E RUR ####[facility] Brvrdypumu[address] [place], [place] [address]Dr. Donna Malone pH (U) 5.5 [pH] Normal 5-9 The [facility] Comment on above: Performed By: #### E RUR ####[facility] Kcsfgf[address] [place], [place] [address]Dr. Donna Malone SPEC GRAVITY >=1.030 Abnormal 1.005-<=1. 025 The [facility] Comment on above: Performed By: #### E RUR ####[facility] Dhpcuulsqf[address] [place], [place] [address]Dr. Donna Malone UA PROTEIN TRACE Normal NEGATIVE/ TRACE The [facility] Comment on above: Performed By: #### E RUR ####[facility] [address] [place] [address]Dr. Donna Malone UR MICRO IND NOT INDICATED Normal The [facility] Comment on above: Performed By: #### E RUR ####[facility] [address] [place] [address]Dr. Donna Malone Urobilinogen Qn (U) 1.0 {Jermain'U}/dL Normal 0.2 - 1. 0 [facility] Comment on above: Performed By: #### E RUR ####[facility] Fqzuekiqna[address] [place], [place] [address]Dr. Donna Malone ETHANOL (BLD ALC)on 05-13-20 22 ALC NOTE NOTE: 80 mg/dl is th e legal limit for a blood alcohol level Normal [facility] Comment on above: Performed By: #### E TH ####[facility] Dzkhuls[address] [place], [place] [address]Dr. Rubyyvan Malone Ethanol [Mass/Vol] mg/dL Normal [facility] Comment on above: Performed By: #### E TH ####[facility] Lffofkxnbz6[address] [place], [place] [address]Dr. Donna Malone LACTATE/LACTIC ACIDon 2021 Lactate [Moles/Vol] 1.7 mmol/L Normal 0.4-1.9 [facility] Comment on above: Performed By: #### L ACT ####[facility] Tugifojjom[address] [place], [place] [address]Dr. Donna Malone POINT OF CARE GLUCOSEon Glucose [Mass/Vol] 99 mg/dL Normal 74-106 [facility] Comment on above: Performed By: #### P OCGLUC ####[facility] Bvgjfdgvsv[address] [place], [place] [address]Dr. Donna Malone PROF 14(COMP METB)on 022 Albumin [Mass/Vol] 3.1 g/dL Critically low 3.4-5.0 e [facility] Comment on above: Performed By: #### C MP, CMADM, BNP ####[facility] [address] [place] [address]Dr. Donna Malone Albumin/Globulin [Mass ratio] 1.0 {ratio} Normal [facility] Comment on above: Performed By: #### C MP, CMADM, BNP ####[facility] [address] [place] [address]Dr. Donna Malone ALP [Catalytic activity/Vol] 37 U/L Critically low 46-116 [facility] Comment on above: Performed By: #### C MP, CMADM, BNP ####[facility] Rx[address]rttat[address] [place] [address]Dr. Donna Malone ALT [Catalytic activity/Vol] 14 U/L Critically low 16-63 [facility] Comment on above: Performed By: #### C MP, CMADM, BNP ####[facility] [address] [place] [address]Dr. Donna Malone Anion gap [Moles/Vol] 12.3 mmol/L Normal [facility] Comment on above: Performed By: #### C MP, CMADM, BNP ####[facility] Xtwe[address]ulh[address] [place], [place] [address]Dr. Donna Malone AST [Catalytic activity/Vol] 12 U/L Critically low 15-37 [facility] Comment on above: Performed By: #### C MP, CMADM, BNP ####[facility] [address] [place] [address]Dr. Donna Malone Bilirubin [Mass/Vol] 0.4 mg/dL Normal 0.2-1.0 [facility] Comment on above: Performed By: #### C MP, CMADM, BNP ####[facility] [address] [place] [address]Dr. Donna Malone Calcium [Mass/Vol] 7.8 mg/dL Critically low 8.5-10.1 [facility] Comment on above: Performed By: #### C MP, CMADM, BNP ####[facility] [address] [place] [address]Dr. Donna Malone Chloride [Moles/Vol] 108 mmol/L Critically high 98-107 The [facility] Comment on above: Performed By: #### C MP, CMADM, BNP ####[facility] [address] [place] [address]Dr. Donna Malone CO2 [Moles/Vol] 24.8 mmol/L Normal 21.0-32.0 [facility] Comment on above: Performed By: #### C MP, CMADM, BNP ####[facility] Pzdewmxwag[address] [place], [place] [address]Dr. Donna Malone Creatinine [Mass/Vol] 1.83 mg/dL Critically high 0.70-1.30 The [facility] Comment on above: Performed By: #### C MP, CMADM, BNP ####[facility] [address]auztyfqrn[address] [place], [place] [address]Dr. Donna Malone EGFR-AF LIBERIAN 45 mL/min/1.73m2 Critically low >=60 [facility] Comment on above: Performed By: #### C MP, CMADM, BNP ####[facility] Yzyansqcwk[address] [place], [place] [address]Dr. Donna Malone EGFR-NON AF LIBERIAN 37 mL/min/1.73m2 Critically low >=60 The [facility] Comment on above: Performed By: #### C MP, CMADM, BNP ####[facility] [address] [place] [address]Dr. Donna Malone Globulin (S) [Mass/Vol] 3.2 g/dL Normal [facility] Comment on above: Performed By: #### C MP, CMADM, BNP ####[facility] [address] [place] [address]Dr. Donna Malone Glucose [Mass/Vol] 202 mg/dL Critically high 74-106 [facility] Comment on above: Performed By: #### C MP, CMADM, BNP ####[facility] [address] [place] [address]Dr. Donna Malone Potassium [Moles/Vol] 4.1 mmol/L Normal 3.5-5.1 The [facility] Comment on above: Performed By: #### C MP, CMADM, BNP ####[facility] [address] [place] [address]Dr. Donna Malone Protein [Mass/Vol] 6.3 g/dL Critically low 6.4-8.2 Th e [facility] Comment on above: Performed By: #### C MP, CMADM, BNP ####[facility] [address] [place] [address]Dr. Donna Malone Sodium [Moles/Vol] 141 mmol/L Normal 136-145 [facility] Comment on above: Performed By: #### C MP, CMADM, BNP ####[facility] [address] [place] [address]Dr. Donna Malone Urea nitrogen [Mass/Vol] 32.0 mg/dL Critically high 7.0-18.0 [facility] Comment on above: Performed By: #### C MP, CMADM, BNP ####[facility] [address] [place] [address]Dr. Donna Malone Urea nitrogen/Creatinine [Mass ratio] 17.5 mg/mg Normal [facility] Comment on above: Performed By: #### C MP, CMADM, BNP ####[facility] [address] [place] [address]Dr. Donna Malone PROTIMEon 05-13-2022 INR Coag (PPP) [Relative time] 1.04 {INR} Normal The [facility] Comment on above: Performed By: #### P T, PTT ####[facility] [address]kta[address]aw[address] [place], [place] [address]Dr. Donna Malone INR GUIDELINES SEE BELOW Normal The [facility] Comment on above: Result Comment: FLORESITA RED INR: 2.0 - 3.0 CONDITIONS NOT LISTED BELOW 2.5 - 3.5 FOR PROSTHETIC HEART VALVE REPLACEMENT 2.5 - 3.5 RECURRENT THROMBOSIS Performed By: #### P T, PTT ####[facility] Eyfgm[address]okp[address] [place], [place] [address]Dr. Donna Malone PT Coag (PPP) [Time] 11.2 s Normal 9.0-11.6 [facility] Comment on above: Performed By: #### P T, PTT ####[facility] [address] [place], [place] [address]Cn. Donna Malone PTTon 05-13-2022 aPTT Coag (Bld) [Time] 27.5 s Normal 22.3-36.2 Th e [facility] Comment on above: Performed By: #### P T, PTT ####[facility] [address] [place], [place] [address]Nt. Donna Malone XR CHEST 1 Von 05-13-2022 XR CHEST 1 V Normal [facility] Ambulatory Visit Summaryon 0 10-03-2021 [...] physician if questions or concerns acetaminophen acetaminophen-hydrocodone ([place] 5/325 Tab) amlodipine (amLODIPine 5 mg Tab) [...] [address], [place] [address]- Medications What How Much When Instructions New ciprofloxacin (Cipro 500 mg Tab) 1 Tablets By Mouth Every day Take 1 tablet the day before the procedure and 1 tablet after the procedure Pickup at [facility] Unchanged acetaminophen 650 Milligram Every 4 hours Contact prescribing physician if questions or concerns Unchanged acetaminophen-hydrocodone ([place] 5/ 325 Tab) 1 Tablets By Mouth [...] physician if questions or concerns Pharmacy Information [facility]: [address] [place], [place] [id number] [phone] (more content not included)... Normal [facility] Ambulatory Visit Summary TAYLOR MCCLELLAN SR [...] physician if questions or concerns acetaminophen acetaminophen-hydrocodone ([place] 5/325 Tab) amlodipine (amLODIPine 5 mg Tab) [...] [facility] [address], [place] [address]- Medications What How Much When Instructions New ciprofloxacin (Cipro 500 mg Tab) 1 Tablets By Mouth Every day Take 1 tablet the day before the procedure and 1 tablet after the procedure Pickup at [facility] Unchanged acetaminophen 650 Milligram Every 4 hours Contact prescribing physician if questions or concerns Unchanged acetaminophen-hydrocodone ([place] 5/ 325 Tab) 1 Tablets By Mouth [...] physician if questions or concerns Pharmacy Information [facility]: [address] [place] [phone] [phone] (more content not included)... Normal [facility] Retirement Recordson 10-03 Retirement Records [id number] Normal [facility] Patient Educationon 10-03-19 Patient Education Urology [...] Follow these instructions at home: ? Take brwr-owt-uuqluuy and prescription medicines only as told by [...] You d (more content not included)... Normal [facility] Urology Office/Clinic Noteon 10-03-2021 Urology Office/Clinic Note Chief Complaint This is a 66 year old male in the [place] [facility] on 09/14/21. This patient has a [...] is here today to reestablish urologic care. [facility] Staff Pt. last seen in office 2018. S/P [facility] 10/30/18. Pt. was seen in the [facility] ER on 09/14/21 due to generalized [...] recently. Family was in the hospital at [place] where he had severe weakness. A Galindo [...] last seen in 2019. Patient was in [facility] 09/14/21 due to weakness and [...] dribbling) moderate, (more content not included)... Normal [facility] Comment on above: Result Comment: Elec tronically Signed By: Lisandro Orourke Jr., MD\.br\Date and Time Signed: 10/03/21 12:37 EST\.br\Electronically Co-Signed By: Lisandra Arias\.br\Date and Time Co-Signed: 10/03/21 12:32 EST APTTon 10-13-2019 aPTT Coag (Bld) [Time] 34.9 s Normal 25.0-35.0 Th e [facility] Comment on above: Result Comment: ALL [...] THIS PURPOSE. Performed By: #### 5 6101, [address] #### [address] CREATININE BLOODon 0 Creatinine [Mass/Vol] 1.07 mg/dL Normal 0.70-1.30 The [facility] Comment on above: Performed By: #### 2 5656 #### [address] Creatinine [Mass/Vol] mg/dL Normal >60 The [facility] Comment on above: Performed By: #### 2 5656 #### [address] LUMBAR SPINE W CONTRASTon 10-13-2019 CT LUMBAR SPINE W CONTRAST [facility] Department of Radiology [address] [place] [id number] Patient Name: TAYLOR MCCLELLAN : 1955 Sex: M Age: Race: White Pt. Location: 84 Patient Status: O Ordered Date: 09/11/2019 2:50:00 PM Completed Date: 10/13/2019 11:37 AM Requesting Provider: JASEN HOWARD Attending Provider: JASEN HOWARD Report Copy To: LUI BRYSON Signs & Symptoms: M51.36 Other intervertebral disc degeneration, lumbar region I10 History: [place] Need Saturday appointment call [facility] [phone] [facility] auth# [id number] 09/16/19-10/15/19 cpt code 68651 *mla Comments: Exam: CT LUMBAR SPINE W [...] achievable Electronically signed: Fredy Salmeron. Transcribed by: [email or web address], User Resident: Electronically Signed by: FREDY SALMERON @ 10/13/2019 02:08 PM Normal The [facility] LUMBAR MYELOGRAMon 0 LUMBAR MYELOGRAM [facility] Department of Radiology [address] [place] [phone] Patient Name: TAYLOR MCCLELLAN : 1955 [...] risks are acceptable. Consent was obtained. Timeout: Woody protocol timeout verification performed. PROCEDURE: Estimated blood [...] the imagers and reports Electronically signed: Fredy Salmeorn. Transcribed by: [email or web address], User Resident: KRISTINE BALLARD Electronically Signed by: HARRYHALINA FAVIOLA @ 10/13/2019 06:58 PM I personally read this/these film(s) with this resident Normal The [facility] Comment on above: Order Comment: , , = ========= , Ordering Provider - JASEN HOWARD MD , PROTHROMBIN TIMEon 0 INR Coag (PPP) [Relative time] 1.05 {INR} Normal 0.91-1.16 The [facility] Comment on above: Result Comment: ACCC [...] RANGE. CHEST 1995;108:231S-246S. Performed By: #### 5 4121, 07680 #### [facility] [address] [place] [address], [facility] PT Coag (PPP) [Time] 13.7 s Normal 12.3-14.8 The [facility] Comment on above: Result Comment: ALL RESULTS MUST BE INTERPRETED WITH RESPECT TO BLOOD DRAWING ARTIFACT OR DILUTION ERROR OF ANTICOAGULANT AT THE TIME OF SAMPLING. Performed By: #### 5 9232, 98206 #### [facility] [address] [place] [address], [facility] Laboratory Studieson 019 HBV surface Ab Ql (S) Non reactive F [facility] Work Phone: Comment on above: Non Reactive: Incons istent with immunity, less than 10 mIU/mL Reactive: Consistent with immunity, greater than 9.9 mIU/mL HBV surface Ag IA Ql Negative [facility] Work Phone: Comment on above: Performed at: - [address] [id number] Health And Safety Representative: Arnold Cabral PhD, Phone: [phone] HCV Ab Signal/Cutoff IA RelACnc 0.1 s/co ratio [facility] Work Phone: Hepatitis C Antibody Comment See comment [facility] Work Phone: Comment on above: Non reactive HCV ant ibody screen is consistent with no HCV infection, unless recent infection is suspected or other evidence exists to indicate HCV infection. HIV 1+2 Ab IA Ql Nonreactive [facility] Work Phone: Laboratory Studieson 018 Glucose mass conc Glu2: cleaned meter [facility] Work Phone: Glucose mass conc 121 mg/dL [facility] Work Phone: Comment on above: Random Glucose Refer ence Range is dependent on time and content of last meal. Glucose of more than 200 mg/dL in a nonstressed, ambulatory subject supports the diagnosis of Diabetes Mellitus. Calcium mass conc 8.7 mg/dL 8.2-10.2 [facility] Work Phone: Chloride molar conc 102 mmol/L 95-114 [facility] Work Phone: CO2 molar conc 27.5 mmol/L 22.0-30.0 [facility] Work Phone: Creatinine mass conc 1.08 mg/dL 0.64-1.27 [facility] Work Phone: GFR/1.73 sq M predicted among blacks MDRD vol rate/area (S/P/Bld) mL/min/{1.73_m2} [facility] Work Phone: Comment on above: GFR estimated refere nce range: According to KDOQI guidelines, <60 ml/min/1.73m2 is sufficient to diagnose a patient with chronic kidney disease. GFR/1.73 sq M predicted among non-blacks MDRD vol rate/area (S/P/Bld) mL/min/{1.73_m2} [facility] Work Phone: Glucose mass conc 86 mg/dL 70-100 [facility] Work Phone: Comment on above: ADA recommended refe rence range Random Glucose Reference Range is dependent on time and content of last meal. Glucose of more than 200 mg/dL in a nonstressed, ambulatory subject supports the diagnosis of Diabetes Mellitus. Pharmacy Creatinine Clearance (Chem 88.1842 [facility] Work Phone: Potassium molar conc 3.5 mmol/L 3.5-5.1 [facility] Work Phone: Sodium molar conc 139 mmol/L 136-146 [facility] Work Phone: Urea nitrogen mass conc 10 mg/dL 9-23 [facility] Work Phone: Laboratory Studieson 02-11- 018 Basophils #/vol (Bld) 0.1 10*3/uL 0.0-0.2 [facility] Work Phone: Basophils/100 WBC (Bld) 1.0 % [facility] Work Phone: Eosinophils #/vol (Bld) 0.2 10*3/uL 0.0-0.45 [facility] Work Phone: Eosinophils/100 WBC (Bld) 2.8 % [facility] Work Phone: Erythrocyte distribution width Ratio (RBC) 13.9 % 12.0-14.8 [facility] Work Phone: Hematocrit Volume Fraction (Bld) 36.3 % Low 38.8-50.0 [facility] Work Phone: Hemoglobin mass conc (Bld) 12.5 g/dL Low 13.0-17.0 [facility] Work Phone: Lymphocytes #/vol (Bld) 1.6 10*3/uL 1.00-4.8 [facility] Work Phone: Lymphocytes/100 WBC (Bld) 23.7 % [facility] Work Phone: MCH Entitic mass (RBC) 28.9 pg 27.5-35.2 [facility] Work Phone: MCHC mass conc (RBC) 34.3 g/dL 32.5-35.6 [facility] Work Phone: MCV Entitic volume (RBC) 84.4 fL 83.5-101 [facility] Work Phone: Monocytes #/vol (Bld) 0.4 10*3/uL 0.0-0.8 [facility] Work Phone: Monocytes/100 WBC (Bld) 6.7 % [facility] Work Phone: Neutrophils #/vol (Bld) 4.4 10*3/uL 1.8-7.7 [facility] Work Phone: Neutrophils/100 WBC (Bld) 65.8 % [facility] Work Phone: Platelet mean volume Entitic volume (Bld) 10.3 fL High 6.6-10.1 [facility] Work Phone: Platelets #/vol (Bld) 199 10*3/uL 150-450 [facility] Work Phone: RBC #/vol (Bld) 4.31 10*6/uL 3.90-5.60 [facility] Work Phone: WBC #/vol (Bld) 6.6 10*3/uL 4.1-10.5 [facility] Work Phone: Laboratory Studieson 018 Appearance Nom (U) Slightly cloudy Abnormal F [facility] Work Phone: Bacteria Auto Ql (U) None seen [facility] Work Phone: Bilirubin Ql (U) Negative [facility] Work Phone: Color Nom (U) Yellow [facility] Work Phone: Creatinine mass conc (U) 143.4 mg/dL [facility] Work Phone: Comment on above: No reference range e stablished Epithelial cells Auto #/area (Urine sed) Rare /HPF [facility] Work Phone: Glucose Automated test strip mass conc (U) Normal mg/dL [facility] Work Phone: Hemoglobin Automated test strip Ql (U) 1+ High [facility] Work Phone: Ketones mass conc (U) 1+ High [facility] Work Phone: Leukocyte esterase Automated test strip Ql (U) Negative [facility] Work Phone: Nitrite Automated test strip Ql (U) Negative [facility] Work Phone: pH (U) 5.5 [pH] 5.0-9.0 [facility] Work Phone: pH (U) [pH] 1.001-1.[address] [facility] Work Phone: Protein mass conc (U) Negative [facility] Work Phone: RBC Auto #/area (Urine sed) 1-2 /HPF [facility] Work Phone: Sodium molar conc (U) 144.0 mmol/L F [facility] Work Phone: Comment on above: No reference range e stablished Urate crystals LM.HPF #/area (Urine sed) 3 /[HPF] [facility] Work Phone: Urobilinogen mass conc (U) Normal mg/dL [facility] Work Phone: WBC Auto #/area (Urine sed) None seen /HPF [facility] Work Phone: Albumin mass conc 2.7 g/dL Low 3.2-5.5 [facility] Work Phone: Albumin/Globulin mass ratio 0.8 {ratio} [facility] Work Phone: ALP enzyme act/vol 39 U/L 32-92 [facility] Work Phone: ALT No additional P-5'-P enzyme act/vol 14 U/L 10-60 [facility] Work Phone: AST enzyme act/vol 25 U/L 10-42 [facility] Work Phone: Bilirubin mass conc 0.6 mg/dL 0.3-1.2 [facility] Work Phone: Globulin mass conc (S) 3.6 g/dL [facility] Work Phone: Protein mass conc 6.3 g/dL 6.1-7.9 [facility] Work Phone: Laboratory Studieson 018 T3 free mass conc 3.28 pg/mL 2.50-3.90 [facility] Work Phone: T4 free mass conc 0.95 ng/dL 0.61-1.12 [facility] Work Phone: Amphetamines Ql (U) Negative [facility] Work Phone: Barbiturates Ql (U) Negative [facility] Work Phone: Benzodiazepines Ql (U) Positive High [facility] Work Phone: Cannabinoids Screen Ql (U) Negative [facility] Work Phone: Comment on above: These are unconfirme d results and should not be used for legal purposes. Drug Cut-Off Concentration: AMPH 1000 ng/mL EWA 200 ng/mL JOHN 200 ng/mL COCM 300 ng/mL OP 300 ng/mL PCP 25 ng/mL THC 20 ng/mL Cocaine Ql (U) Negative [facility] Work Phone: Opiates Ql (U) Positive High [facility] Work Phone: Phencyclidine Ql (U) Negative [facility] Work Phone: Ammonia mass conc (Unsp spec) 20 umol/L 11-35 [facility] Work Phone: Bilirubin.direct mass conc 0.2 mg/dL 0.0-0.4 [facility] Work Phone: Bilirubin.indirect mass conc 0.8 mg/dL [facility] Work Phone: Cobalamin (Vitamin B12) mass conc 365 pg/mL 180-914 [facility] Work Phone: Folate mass conc 12.4 ng/mL [facility] Work Phone: Comment on above: Folate reference ran ge: >5.9 ng/ml The WHO technical consultation on folate and vitamin b12 deficiencies has determined that folate concentrations less than 4 ng/ml are considered deficient. Magnesium molar conc (Unsp spec) 1.7 mg/dL 1.6-2.6 [facility] Work Phone: Thyrotropin Qn 0.20 uIU/mL Low 0.45-5.33 [facility] Work Phone: Comment on above: Revised TSH Assay This assay is standardized to the World Health Organization International Standard for human TSH. Please note Reference Intervals have changed. Laboratory Studieson 018 Casts LM Nom (Urine sed) N/A [facility] Work Phone: Epithelial cells.renal LM.HPF #/area (Urine sed) Rare /HPF [facility] Work Phone: Hyaline casts Auto #/vol (U) 20-49 /LPF High [facility] Work Phone: [phone] Lactate molar conc (U) 0.9 mmol/L [facility] Work Phone: CK enzyme act/vol 107 U/L 22-269 [facility] Work Phone: Phosphate mass conc 5.0 mg/dL High 2.5-4.6 [facility] Work Phone: Laboratory Studieson 017 Glucose mass conc 122 mg/dL [facility] Work Phone: Comment on above: RANDOM GLUCOSE REFER ENCE RANGE IS DEPENDENT ON TIME AND CONTENT OF LAST MEAL.GLUCOSE OF MORE THAN 200MG/DL IN A NONSTRESSED,AMBULATORY SUBJECT SUPPORTS THE DIAGNOSIS OF DIABETES MELLITUS. Laboratory Studieson 017 Basophils #/vol (Bld) 0.1 10*3/uL 0.0-0.2 [facility] Work Phone: Basophils/100 WBC (Bld) 0.9 % [facility] Work Phone: Calcium mass conc 8.6 mg/dL 8.2-10.2 [facility] Work Phone: Chloride molar conc 109 mmol/L 95-114 [facility] Work Phone: CK enzyme act/vol 355 U/L High 22-269 [facility] Work Phone: CO2 molar conc 19.5 mmol/L Low 22.0-30.0 [facility] Work Phone: Creatinine mass conc 0.99 mg/dL 0.64-1.27 [facility] Work Phone: Eosinophils #/vol (Bld) 0.20 10*3/uL 0.0-0.45 [facility] Work Phone: Eosinophils/100 WBC (Bld) 3.3 % [facility] Work Phone: Erythrocyte distribution width Ratio (RBC) 13.8 % 12.0-14.8 [facility] Work Phone: Estimated GFR (Non- > 60 [facility] Work Phone: GFR/1.73 sq M.predicted MDRD (S/P/Bld) [Vol rate/Area] mL/min/{1.73_m2} [facility] Comment on above: GFR estimated refere nce range: According to KDOQI guidelines, <60 ml/min/1.73m2 is sufficient to diagnose a patient with chronic kidney disease. GFR/1.73 sq M.predicted MDRD vol rate/area mL/min/{1.73_m2} [facility] Work Phone: Comment on above: GFR estimated refere nce range: According to KDOQI guidelines, <60 ml/min/1.73m2 is sufficient to diagnose a patient with chronic kidney disease. Glucose mass conc 94 mg/dL 70-100 [facility] Work Phone: Comment on above: ADA RECOMMENDED REFE RENCE RANGE Hematocrit Volume Fraction (Bld) 41.5 % 38.8-50.0 [facility] Work Phone: Hemoglobin mass conc (Bld) 14.1 g/dL 13.0-17.0 [facility] Work Phone: Lymphocytes #/vol (Bld) 2.6 10*3/uL 1.00-4.8 [facility] Work Phone: Lymphocytes/100 WBC (Bld) 40.3 % [facility] Work Phone: MCH Entitic mass (RBC) 30.4 pg 27.5-35.2 [facility] Work Phone: MCHC mass conc (RBC) 34.1 g/dL 32.5-35.6 [facility] Work Phone: MCV Entitic volume (RBC) 89.2 fL 83.5-101 [facility] Work Phone: Monocytes #/vol (Bld) 0.4 10*3/uL 0.0-0.8 [facility] Work Phone: Monocytes/100 WBC (Bld) 6.4 % [facility] Work Phone: Neutrophils #/vol (Bld) 3.1 10*3/uL 1.8-7.7 [facility] Work Phone: Neutrophils (%) (Auto) 49.1 % [facility] Work Phone: Neutrophils/100 WBC (Bld) 49.1 % [facility] Platelet mean volume Entitic volume (Bld) 10.7 fL High 6.6-10.1 [facility] Work Phone: Platelets #/vol (Bld) 160 10*3/uL 150-450 [facility] Work Phone: Potassium molar conc 3.4 mmol/L Low 3.5-5.1 [facility] Work Phone: RBC #/vol (Bld) 4.65 10*6/uL 3.90-5.60 [facility] Work Phone: Sodium molar conc 138 mmol/L 136-146 [facility] Work Phone: Urea nitrogen mass conc 7 mg/dL Low 9-23 [facility] Work Phone: WBC #/vol (Bld) 6.4 10*3/uL 4.1-10.5 [facility] Work Phone: Laboratory Studieson 017 Platelet Aggregation (ADP) 57.8 % 0-100 [facility] Work Phone: Comment on above: NO REFERENCE RANGE I S ESTABLISHED OR APPLICABLE Platelet Inhibition ADP 42.2 % 0-100 [facility] Work Phone: Comment on above: NO REFERENCE RANGE I S ESTABLISHED OR APPLICABLE TEG Max Amplitude (Citrated) 69.9 mm 50-70 [facility] Work Phone: TEG Max Amplitude (Rapid) 29.9 0-90 [facility] Work Phone: Comment on above: TEG MA A HAS NO REFE RENCE RANGE Thrombelastograph (TEG) Net G ADP 53.0 MM 0-90 [facility] Work Phone: Comment on above: TEG MA ADP HAS NO RE FERENCE RANGE Albumin mass conc 3.1 g/dL Low 3.2-5.5 [facility] Work Phone: Albumin/Globulin mass ratio 1.0 {ratio} [facility] Work Phone: ALP enzyme act/vol 44 U/L 32-92 [facility] Work Phone: ALT enzyme act/vol 18 U/L 10-60 [facility] Work Phone: AST enzyme act/vol 27 U/L 10-42 [facility] Work Phone: Bilirubin Ql (U) 0.6 mg/dL 0.3-1.2 [facility] Work Phone: Bilirubin.direct mass conc 0.1 mg/dL 0.0-0.4 [facility] Work Phone: Bilirubin.indirect mass conc (Body fld) 0.5 mg/dL [facility] Work Phone: Cholesterol in HDL mass conc 26 mg/dL Low 29-71 [facility] Work Phone: Comment on above: HDL CHOL ATP-III CLA SSIFICATION Cardiovascular Risk HDL > or equal to 60 mg/dL Low HDL < 40 mg/dL High Cholesterol mass conc 150 mg/dL 140-200 [facility] Work Phone: Comment on above: CHOL less than 200 m g/dL Low risk CHOL 201-239 mg/dL Borderline risk CHOL 240 mg/dL and greater High risk Cholesterol mass conc 30 mg/dL [facility] Work Phone: Cholesterol.total/Chol esterol in HDL mass ratio 5.8 {ratio} [facility] Work Phone: Globulin mass conc (S) 3.2 g/dL [facility] Work Phone: LDL Cholesterol, Calculated 93 mg/dL 0-100 [facility] Work Phone: Comment on above: LDL ATP III CLASSIFI CATION LDL less than 100 mg/dL Optimal LDL 100-129 mg/dL Near or above optimal LDL 130-159 mg/dL Borderline high LDL 160-189 mg/dL High LDL greater than 189 mg/dL Very high Protein mass conc 6.3 g/dL 6.1-7.9 [facility] Work Phone: Thyrotropin Qn 1.12 uIU/mL 0.45-5.33 [facility] Work Phone: Comment on above: Revised TSH Assay This assay is standardized to the World Health Organization International Standard for human TSH. Please note Reference Intervals have changed. Triglyceride mass conc 153 mg/dL High 35-149 [facility] Work Phone: Comment on above: TRIG ATP III CLASSIF ICATION TRIG less than 150 mg/dL Normal TRIG 150-199 mg/dL Borderline high TRIG 200-500 mg/dL High TRIG greater than 500 mg/dL Very high Standard traceable to the Center for Disease Conrtrol and Prevention (CDC) test method. Laboratory Studieson 017 Glucose mass conc Glu2: cleaned meter [facility] Work Phone: Ammonia mass conc (P) 19 umol/L 11-35 [facility] Work Phone: Cobalamin (Vitamin B12) mass conc 202 pg/mL 180-914 [facility] Work Phone: Folate 10.7 ng/mL [facility] Work Phone: Comment on above: FOLATE REFERENCE RAN GE: >5.9 ng/mL The WHO Technical Consultation on folate and vitamin B12 deficiencies has determined that folate concentrations less than 4 ng/mL are considered deficient. Amphetamines Ql (U) Negative [facility] Work Phone: Appearance Nom (U) Clear [facility] Work Phone: Bacteria LM.HPF #/area (Urine sed) None seen [facility] Work Phone: Benzodiazepines Ql (U) Positive High [facility] Work Phone: Bilirubin Ql (U) Negative [facility] Work Phone: Cocaine Ql (U) Negative [facility] Work Phone: Color Nom (U) Yellow [facility] Work Phone: Epithelial cells.squamous LM.HPF #/area (Urine sed) 5-9 /hpf High [facility] Work Phone: Glucose mass conc (U) 250 mg/dL High [facility] Work Phone: Hyaline casts LM Ql (Urine sed) 0-8 /lpf [facility] Work Phone: Ketones Ql (U) Trace [facility] Work Phone: Leukocyte esterase Test strip Ql (U) Negative [facility] Work Phone: Nitrite Ql (U) Negative [facility] Work Phone: Opiates Ql (U) Negative [facility] Work Phone: pH (U) 5.0 [pH] 5.0-9.0 [facility] Work Phone: Phencyclidine Ql (U) Negative [facility] Work Phone: Protein Ql (U) Negative [facility] Work Phone: RBC #/vol (U) 50-100 /hpf [facility] Work Phone: Specific gravity Relative Density (U) 1.039 High 1.001-1.[address] [facility] Work Phone: Urine Barbiturates Screen Negative [facility] Work Phone: Urine Collection Type Type [facility] Work Phone: Comment on above: CATHETERIZED Urine Drug Screen Comment See comment [facility] Work Phone: Comment on above: THESE ARE UNCONFIRME D RESULTS AND SHOULD NOT BE USED FOR LEGAL PURPOSES. DRUG CUT-OFF CONCENTRATION: AMPH 1000 ng/mL EWA 200 ng/mL JOHN 200 ng/mL COCM 300 ng/mL OP 300 ng/mL PCP 25 ng/mL THC 20 ng/mL Urine Marijuana (THC) Screen Negative [facility] Work Phone: Urine Occult Blood 3+ High [facility] Work Phone: Urine Transitional Epithelial Cells 3-4 /hpf High [facility] Work Phone: Urobilinogen Qn (U) Normal mg/dL [facility] Work Phone: WBC #/vol (U) 0-1 /hpf [facility] Work Phone: Bedside Ionized Calcium (Deepti) 1.22 mmol/L 1.12-1.32 [facility] Work Phone: Bedside Total CO2 23 mmol/L 23-29 [facility] Work Phone: Chloride molar conc 110.0 mmol/L High 98-109 [facility] Work Phone: Creatinine mass conc 1.2 mg/dL 0.6-1.3 [facility] Work Phone: Comment on above: ER/ESD PHYSICIAN IS NOTIFIED/SHOWN ALL ISTAT RESULTS. CRITICAL VALUES MAY BE CONFIRMED BY LABORATORY TESTING IF DEEMED NESCESSARY BY ER ATTENDING DOCTOR Glucose mass conc 135 mg/dL High 70-105 [facility] Work Phone: Hematocrit Volume Fraction (Bld) 48.0 % 38.0-51.0 [facility] Work Phone: Hemoglobin mass conc (Bld) 16.3 g/dL 12.0-17.0 [facility] Work Phone: Potassium molar conc 4.7 mmol/L 3.5-4.9 [facility] Work Phone: Sodium molar conc 144 mmol/L 138-146 [facility] Work Phone: Urea nitrogen mass conc 15 mg/dL 8-26 [facility] Work Phone: Amylase enzyme act/vol 39 U/L 28-100 [facility] Work Phone: CK.MB mass conc 9.5 ng/mL High 0.6-6.3 [facility] Work Phone: Creatine Kinase MB Relative Index 1.5 0.00-2.50 [facility] Work Phone: Ethyl Alcohol Level < 5 mg/dL [facility] Work Phone: Glucose mass conc 140 mg/dL High 70-100 [facility] Work Phone: Comment on above: RANDOM GLUCOSE REFER ENCE RANGE IS DEPENDENT ON TIME AND CONTENT OF LAST MEAL.GLUCOSE OF MORE THAN 200MG/DL IN A NONSTRESSED,AMBULATORY SUBJECT SUPPORTS THE DIAGNOSIS OF DIABETES MELLITUS. Lipase enzyme act/vol 22.0 U/L 22-51 [facility] Work Phone: Percent Ethyl Alcohol < 0.005 % [facility] Work Phone: Troponin I.cardiac mass conc ng/mL 0-0.02 [facility] Work Phone: Comment on above: [place] Cut off value > or equal to 0.03 ng/mL in conjunction with clinical conditions of myocardial infarction. ([email or web address].org/guidelines) Glucose mass conc 134 mg/dL [facility] Work Phone: Hemoglobin A1c/Hemoglobin.total mass fraction (Bld) 6.3 % High 4.3-5.6 [facility] Work Phone: Comment on above: Increased risk for d iabetes: 5.7 - 6.4 Diabetes: >6.4 Glycemic control for adults with diabetes: <7.0 Vital Signs Date Time Vital Sign Value Performing Clinician Facility 11-05-2022 14:30-0500 Diastolic blood pressure 72 mm[Hg] [address] Other [facility] Other 11-05-2022 14:30-0500 SaO2% (BldA) [Mass fraction] 97 % Benson Domingo Other [facility] Other 11-05-2022 14:30-0500 Systolic blood pressure 118 mm[Hg] [address] Other [facility] Other 10-18-2022 14:00-0500 Body weight 96.71 kg Benson Domingo Other [facility] Other 10-18-2022 14:00-0500 Diastolic blood pressure 64 mm[Hg] [address] Other [facility] Other 10-18-2022 14:00-0500 SaO2% (BldA) [Mass fraction] 98 % [address] Other [facility] Other 10-18-2022 14:00-0500 Systolic blood pressure 120 mm[Hg] [address] Other [facility] Other 07-20-2022 16:00-0500 Body temperature 97.4 [degF] MD Genesis Reynolds Work Phone: [facility] 07-20-2022 16:00-0500 Diastolic blood pressure 72 mm[Hg] MD Genesis Reynolds Work Phone: [facility] 07-20-2022 16:00-0500 Heart rate 61 /min MD Genesis Reynolds Work Phone: [facility] 07-20-2022 16:00-0500 Respiratory rate 16 /min MD Genesis Reynolds Work Phone: [facility] 07-20-2022 16:00-0500 SaO2% (BldA) [Mass fraction] 98 % MD Genesis Reynolds Work Phone: [facility] 07-20-2022 16:00-0500 Systolic blood pressure 159 mm[Hg] MD Genesis Reynolds Work Phone: [facility] 07-20-2022 06:00-0500 Body weight 95.3 kg MD Genesis Reynolds Work Phone: [facility] 07-18-2022 11:22-0500 Body height 177.8 cm MD Genesis Reynolds Work Phone: [facility] 07-17-2022 22:14-0500 Body height 177.8 cm MD Genesis Reynolds Work Phone: [facility] 07-17-2022 22:14-0500 Body temperature 97.5 [degF] MD Genesis Reynolds Work Phone: [facility] 07-17-2022 22:14-0500 Body weight 95.9 kg MD Genesis Reynolds Work Phone: [facility] 07-17-2022 22:14-0500 Diastolic blood pressure 87 mm[Hg] MD Genesis Reynolds Work Phone: [facility] 07-17-2022 22:14-0500 Heart rate 74 /min MD Genesis Reynolds Work Phone: [facility] 07-17-2022 22:14-0500 Respiratory rate 16 /min MD Genesis Reynolds Work Phone: [facility] 07-17-2022 22:14-0500 SaO2% (BldA) [Mass fraction] 99 % MD Genesis Reynolds Work Phone: [facility] 07-17-2022 22:14-0500 Systolic blood pressure 180 mm[Hg] MD Genesis Reynolds Work Phone: [facility] 02-13-2018 14:12-0400 Body Temperature 98 [degF] [facility] 02-13-2018 14:12-0400 BP Diastolic 74 mm[Hg] [facility] 02-13-2018 14:12-0400 BP Systolic 113 mm[Hg] [facility] 02-13-2018 14:12-0400 Pulse Oximetry 95 % [facility] 02-13-2018 14:12-0400 Respiratory Rate 18 /min [facility] 02-11-2018 22:00-0400 Pulse (Heart Rate) 73 /min [facility]: Highlighted row BMI (Body Mass Index) [facility] NEGATED: Highlighted row BMI (Body Mass Index) [facility]: Highlighted row Height Bro Sanford [facility] NEGATED: Highlighted row Height [facility] Encounters Encounter Date Encounter Type Care Provider Facility Start: 09-27-2024 End: 09-27-2024 Clinisync Result Encounter Vianey Zaldivar MD Work Phone: [facility] Unsolicited Start: 09-27-2024 End: 09-27-2024 Clinisync Result Encounter Vianey Zaldivar MD Work Phone: [facility] Unsolicited Start: 09-09-2024 End: 09-09-2024 ambulatory Genesis Valles jung [facility] Work Phone: Start: 09-09-2024 End: 09-09-2024 Departed Referred Genesis Reynolds MD Work Phone: [facility] Start: 06-24-2024 End: 06-25-2024 Refill Vianey Zaldivar MD Work Phone: [facility] Comment on above: Primary hypertension (CMS/HCC) (Primary Dx) Start: 05-04-2024 ambulatory [facility] Start: 04-30-2024 ambulatory [facility] Start: 04-29-2024 End: 05-04-2024 Emergency department patient visit [facility] Start: 03-26-2024 End: 03-26-2024 ambulatory [facility] Start: 02-25-2024 End: 02-[facility] Start: 02-17-2024 End: 02-17-2024 ambulatory [facility] Start: 02-17-2024 End: 02-17-2024 Encounter for other preprocedural examination [facility] Start: 11-10-2023 End: 11-11-2023 ambulatory [facility] Start: 11-10-2023 End: 11-10-2023 Subsequent hospital visit by physician Bro Sanford MD Work Phone: [facility] Start: 04-26-2023 End: 04-27-2023 ambulatory EBENEZER HOPKINS [facility] Start: 04-25-2023 End: 04-26-2023 Emergency department patient visit BRO SANFORD [facility] Start: 01-17-2023 End: 01-17-[address] GENESIS REYNOLDS . Facility:[facility] Start: 12-06-2022 End: 12-06-[address] Other [facility] Other Start: 12-06-[address] [facility] Start: 11-15-2022 End: 11-17-2022 Evaluation and management of inpatient DR GENESIS REYNOLDS . Facility:[facility] Start: 11-13-2022 End: 11-13-2022 ambulatory Benson Domingo Other [facility] Other Start: 11-13-2022 Telephone encounter Benson Domingo [facility] Start: 11-05-2022 End: 11-05-2022 ambulatory Benson Domingo Other [facility] Other Start: 11-05-2022 Office outpatient vi sit 15 minutes Benson Domingo [facility] Start: 11-01-2022 End: 11-01-2022 ambulatory MD Genesis Reynolds Work Phone: [facility] Work Phone: Start: 11-01-2022 End: 11-01-2022 Patient encounter procedure MD Genesis Reynolds Work Phone: [facility] Work Phone: Start: 10-26-2022 End: 10-27-[address] GENESIS REYNOLDS . Facility:[facility] Start: 10-25-2022 (PROC) PROCEDURE Benson Oliveros [facility] Start: 10-25-2022 End: 10-26-[address] GENESIS REYNOLDS . [facility] Other Start: 10-18-2022 End: 10-18-[address] Other [facility] Other Start: 10-18-2022 Office outpatient ne w [address] [facility] Start: 10-18-2022 Telephone encounter Benson Domingo [facility] Start: 08-22-2022 ambulatory Ms. Lilia Orourke Facility:[id number] Start: 08-10-2022 End: 08-10-[address] GENESIS [...] MD Genesis Reynolds Work Phone: [facility] [place] [facility] Start: 07-17-2022 End: 07-20-2022 observation encounter MD Genesis Reynolds Work Phone: [facility] Work Phone: Start: 07-15-2022 End: 07-16-[address] GENESIS REYNOLDS . Facility:[facility] Start: 06-21-2022 End: 06-22-[address] GENESIS REYNOLDS . Facility:[facility] Start: 05-13-2022 End: 05-16-2022 Evaluation and management of inpatient DR GENESIS REYNOLDS . Facility:[facility] Start: 05-07-[address] GENESIS REYNOLDS . Facili ty:[facility] Start: 12-17-2019 Preoperative state MD Genesis Reynolds Work Phone: [facility] Start: 12-24-2018 End: 12-24-2018 Patient encounter procedure Bro Sanford [facility] Start: 02-08-2018 End: 02-13-2018 Evaluation and management of inpatient Bro Sanford [facility] Start: 01-12-2018 End: 01-17-2018 [facility] Start: 04-02-2017 End: 04-05-2017 [facility] Start: 06-09-2006 End: 07-09-2006 Discharged Recurring Bro Sanford [facility] Start: 04-09-2006 End: 05-09-2006 Discharged Recurring Bor Sanford [facility] Start: 03-09-2006 End: 04-08-2006 Discharged Recurring Bro Sanford [facility] Start: 02-22-2006 End: 03-08-2006 Discharged Recurring Bro Sanford [facility] Start: 02-10-2006 End: 02-14-2006 [facility] Start: 05-10-2000 End: 06-08-2000 Discharged Recurring Bro Sanford [facility] Start: 04-09-2000 End: 05-09-2000 [facility]charged [facility] Start: 03-09-2000 End: 04-08-2000 Discharged Recurring Bro Sanford [facility] Start: 02-08-2000 End: 03-08-2000 Discharged Recurring Bro Sanford [facility] Start: 01-08-2000 End: 02-07-2000 Discharged Recurring Bro Sanford [facility] Start: 12-09-1999 End: 02-07-2000 Discharged Recurring Bro Sanford [facility] Start: 11-08-1999 End: 12-08-1999 [facility]charged [facility] Start: 10-10-1999 End: 11-07-1999 Discharged [facility] Start: 09-09-1999 End: 10-09-1999 Discharged Recur[facility] Start: 08-09-1999 End: 10-09-1999 Discharged Recurring [facility] Start: 07-10-1999 End: 08-08-1999 Discharged Recurring [facility] Start: 06-26-1999 End: 07-09-1999 Discharged Recurring [facility] Start: 03-29-1998 End: 03-29-1998 Patient encounter procedure Bro [facility] Start: 02-24-1987 End: 02-28-1987 [facility] Start: 12-22-1986 End: 12-23-1986 Evaluation and management of inpatient Bro [facility] Procedures Date Procedure Procedure Detail Performing Clinician Start: 09-27-2024 ALL CBC WITH AUTO DIFF Vianey Zaldivar MD Work Phone: Start: 11-10-2023 Urnls dip stick/tabl et reagent auto microscopy Susan Uriostegui 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 Start: 09-09-2024 [facility] Start: 05-10-2024 Influenza vaccination Influenza Vacc ine (#1) [facility] Start: 04-26-2024 Lipid panel Lipids LENORAH Qui.lt [facility] [employer] Start: 04-25-2024 GFR test (Diabetes, CKD 3-4, OR last GFR 15-59) GFR test (Diabetes, CKD 3-4, OR last GFR 15-59) [facility] Start: 08-05-2023 Annual Wellness Visi t (Medicare) Annual Wellness Visit (Medicare) [facility] Start: 05-10-2023 COVID-19 Vaccine ( season) COVID-19 Vaccine ( season) [facility] Start: 04-09-2023 Influenza vaccination Flu vaccine (# 1) [facility] Start: 07-20-2022 [facility] Start: 07-18-[address] [facility] Start: 07-17-2022 Hospital admission [facility] Start: 07-17-[address] [facility] Start: 07-17-2022 Referral to brush loader and handle attacher [facility] Start: 07-17-2022 Referral to occupational therapist [facility] Start: 07-17-2022 [facility] Start: 07-17-2022 [facility] Start: 11-29-2021 Pneumococcal Vaccine : 65+ Years (2 of 2 - PPSV23 or PCV20) Pneumococcal Vaccine: 65+ Years (2 of 2 - PPSV23 or PCV20) [facility] Start: 2021 Abdominal aortic aneurysm screening AAA screen [facility] Start: 01-24-2021 Pneumococcal 65+ yea rs Vaccine (2 - PPSV23 or PCV20) Pneumococcal 65+ years Vaccine (2 - PPSV23 or PCV20) [facility] Start: 2016 Respiratory Syncytia l Virus (RSV) or age 60 yrs+ (1 - 1-dose 60+ series) Respiratory Syncytial Virus (RSV) or age 60 yrs+ (1 - 1-dose 60+ series) [facility] Start: 2006 Screening for malign ant neoplasm of lung Low dose CT lung screening &/or counseling [facility] Start: 2006 Shingles vaccine (1 of 2) Shingles vaccine (1 of 2) [facility] Start: 2001 Screening for malign ant neoplasm of colon [facility] Start: 1974 Glaucoma screening Diabetic retinal exam [facility] Start: 1974 Hepatitis C screening Hepatitis C sc reen [facility] Start: 1974 Urine screening for protein Diabetic Alb to Cr ratio (uACR) test [facility] Start: 1968 Depression Screen Depression Screen [facility] Start: 1966 Diabetic foot examination Diabetic foot exam [facility] Start: 1966 Hemoglobin A1c measurement A1C test (Diabetic or Prediabetic) [facility] Start: 1956 Screening for malign ant neoplasm of colon [facility] Bacteria identified in Blood by Culture Blood Culture [facility] Blood culture for bacteria, including anaerobic screen Blood Culture [facility] End: 11-10-2023 Culture, Urine [facility] [employer] [facility] Work Phone: Comment on above: Once for 1 Occurrenc es starting 11/10/2023 until 11/10/2023 Patient referral [facility] Work Phone: [facility] Immunizations Immunization Date Immunization Notes Care Provider Velma whitlock 06-23-2021 influenza virus vacc ine, unspecified formulation Vianey Zaldivar MD Work Phone: [facility] Payers Date Payer Category Payer Medicare MEDICARE [id number] 2011 [facility] [id number] 315 2009 Unknown [id number] 1959 Medicare [id number] 1959 Unknown [id number] 1956 Unknown [id number] 2.16.840.1.378201.3.57 9.2.593 1956 Unknown [id number] 2.16840.1.025251.3.57 9.2.593 1956 Unknown [id number] 2.16840.1.922745.3.57 9.2.593 1956 Unknown [id number] 2.16.840.1.311358.3.57 9.2.593 1956 Unknown [id number] 2.16.840.1.622103.3.57 9.2.593 1956 Unknown [id number] 2.16.840.1.486877.3.57 9.2.593 1956 Unknown [id number] 2.16.840.1.538387.3.57 9.2.593 1956 Unknown [id number] 2.16.840.1.006313.3.57 9.2.593 1956 Unknown [id number] 2.16.840.1.911922.3.57 9.2.593 1956 Unknown [id number] 2.16.840.1.414602.3.57 9.2.593 1956 Unknown [id number] 2.16.840.1.709516.3.57 9.2.356 1956 Unknown [id number] 2.16.840.1.557070.3.57 9.2.356 1956 Unknown [id number] 2.16.840.1.238072.3.57 9.2.356 1956 Unknown [id number] 2.16.840.1.793028.3.57 9.2.356 1956 Unknown [id number] 2.16.840.1.238811.3.57 9.2.356 1956 Unknown [id number] 2.16.840.1.563084.3.57 9.2.356 1956 Unknown [id number] 2.16.840.1.494194.3.57 9.2.173 1956 Unknown [id number] 2.16.840.1.210107.3.57 9.2.1286 1956 Unknown [id number] 2.16.840.1.151395.3.57 9.2.1286 1956 Unknown [id number] 2.16.840.1.966949.3.57 9.2.1286 1956 Unknown [id number] 2.16.840.1.572405.3.57 9.2.1286 Self-pay Unknown [facility] [employer] [id number] Social History Date Type Detail Facility Start: 07-17-2022 End: 07-18-2022 Tobacco smoking status NHIS Smoker (finding) [facility] Start: 1955 [address] Male [facility] Start: 04-25-2023 Sex Assigned At [facility] sones Other Start: 12-26-2016 Tobacco smoking status MSIS Smokes tobacco daily [facility] History of tobacco use Cigarette Smoker B [place] Start: 12-26-2016 End: 04-25-2023 Cigarettes smoked current (pack per day) - Reported 1.5 [employer] Start: 12-26-2016 Tobacco use and exposure Smokeless tobacco non-user [employer] Start: 04-25-2023 Alcohol intake Current non-drinker of alcohol (finding) [facility] Start: 1955 Sex Assigned At Not on file [facility] Start: 09-12-2024 Sex Male (finding) [facility] Medical Equipment Procedure Code Equipment Code Equipment Origin al Text Equipment Identifier Dates [id number] Start: 12-24-2018 End: 04-11-2019 Glucose test strips Start : 12-24-2018 End: 04-10-2019 Glucose test strips Start : 12-24-2018 End: 04-10-2019 Glucose test strips Start : 12-24-2018 End: 04-10-2019 Glucose test strips Start : 12-24-2018 End: 04-10-2019 Goals Date Patient Goal Desired Activity /State Functional Status Date Assessment Result Facility 07-20-2022 Functional status Patient at Baseline [facility] Work Phone: Mental Status Date Assessment Result Facility 07-20-2022 Cognitive function Cognitive Sta tus Patient at Baseline [facility] Work Phone: Clinical Notes 2018 to 06-25-2024 Telephone Encounter - Susan Uriostegui NP - 06/25/2024 5:07 PM EDTTelephone Encounter - Susan Uriostegui NP - 06/25/2024 5:07 PM EDT Note Date & Type Note Facility 06-25-2024 Telephone encount er Note Rx for losartan is sent. [facility] 06-25-2024 Miscellaneous Notes Formattin g of this note might be different from the original. Rx for losartan is sent. documented in this encounter [facility] 03-26-2024 Note [facility] Cardiology Clinic Note Chief Complaint: New patient here to establish care. Ref from Dr. Reynolds for abnormal stress test. 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 Stress test was [...] Coronary artery disease, PVD (peripheral vascular disease) ([facility]), and Stroke ([facility]). Surgical History He has a [...] Coronary angiography: Left (more content not included)... [facility] 02-25-2024 Note Patient: Taylor briceño Procedure Information Date/Time: 02/25/24 1030 Procedure: Coronary angiography (Left) - andrea Location: [facility] [employer] SPECIALIST 3 / [facility] VASCULAR LAB (Cath) Providers: Festus [...] consented to blood products. Additional Equipment Requests [facility] 02-17-2024 Note [facility] Cardiology Clinic Note Chief Complaint: New patient here to establish care. Ref from Dr. Reynolds for abnormal stress test. 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 Stress test was [...] catheterization. 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 [facility] 11-05-2022 Evaluation note Encounter Date Diagnosis [...] (ICD-10 - G89.29) Follow up after procedure. [facility] Other 02-09-2023 Evaluation note* Encounter Date Diagnosis [...] cant remember who the surgeon was in [place]. He presents with his today, both the [...] negative findings were considered in medical decision-making. [facility] Other 11-11-2022 Discharge summary Author Sang Bauer [facility] July 20, 2022 6:39pm Note Date/Time July 20, 2022 3:04pm [facility] [address] [place] [address] Discharge Summary Signed Patient: Taylor Mcclellan SR MR#: [id number] : 1955 Acct:[id number] Age/Sex: 66 / M Adm Date: 2 Loc: Room: [address] [place] [address]: Sang Bauer MD Copies to: [...] affect Discharge Plan Discharge Plan Patient Disposition: [facility] Facility Activity: No Activity Restriction Diet: Low-Sodium [...] tablet 75 mg PO DAILY Discontinued hydrocodone-acetaminophen [[place]] 5-325 mg tablet 1 tab PO BID PRN (Reason: Pain) Qty: 0 0RF Other Ambulatory Orders: DME Home Medical Equipment (Routine) Timeframe: 20220720 Location: Determined by Patient Ordered By: Sang Bauer Follow Up: Lilia Hopper APRN [Nurse Practitioner] - 08/22/22 10:30 am Documented By: Sang Bauer MD 07/20/22 1501 Signed By: <Electronically signed by Sang Bauer MD> 07/20/22 7728 [facility] Work Phone: 1(445) 357-356611-11-2022 Progress note Author Itzel Adams [facility] July 20, 2022 8:06am Note Date/Time July 20, 2022 8:06am [facility] [address] [place] [address] Cardiology Progress Note Signed Patient: Taylor Mcclellan MR#: [id number] : 1955 Acct:[id number] Age/Sex: 66 / M Adm Date: 2 Loc: Room: [address] [place] [address] Type: ADM INOo Attending Dr: Sang Bauer [...] it is a single-vessel bypass done in [place] record is not available patient and his cannot remember which hospital he had his surgery at. He does not follow with cardiology Qualifiers: Coronary Disease-Associated Artery/Lesion type: [place] artery [place] vs. transplanted heart: [place] heart Associated angina: without angina Qualified Code(s): I25.10 - Atherosclerotic heart disease of [place] coronary artery without angina pectoris Code(s): I25.10 - Atherosclerotic heart disease of [place] coronary artery without angina pectoris Status: Acute [...] by MD Itzel Adams> 07/20/22805 [facility] Work Phone: 1(878) 992-163911-10-2022 Progress note Author Sang Bauer [facility] July 19, 2022 4:57pm Note Date/Time July 19, 2022 4:57pm [facility] [address] [place] [address] Hospitalist Progress Note Signed Patient: Taylor Mcclellan MR#: [id number] : 1955 Acct:[id number] Age/Sex: 66 / M Adm Date: 2 Loc: Room: [address] [place] [address] Type: ADM INOo Attending Dr: Sang Bauer [...] Insuln.Pen SUBCUT 07/17/23 21:59 Not Given TID.WM.HS [facility] Protocol Lamotrigine 100 mg 07/18/22 [...] by Sang Bauer MD> 07/19/221656 [facility] Work Phone: 1(315) 242-980011-10-2022 Progress note Author Itzel Adams [facility] July 19, 2022 8:35am Note Date/Time July 19, 2022 8:35am [facility] [address] [place] [address] Cardiology Progress Note Signed Patient: Taylor Mcclellan MR#: [id number] : 1955 Acct:[id number] Age/Sex: 66 / M Adm Date: 2 Loc: Room: [address] [place] [address] Type: ADM INOo Attending Dr: Sang Bauer [...] it is a single-vessel bypass done in [place] record is not available patient and his cannot remember which hospital he had his surgery at. He does not follow with cardiology Qualifiers: Coronary Disease-Associated Artery/Lesion type: [place] artery [place] vs. transplanted heart: [place] heart Associated angina: without angina Qualified Code(s): I25.10 - Atherosclerotic heart disease of [place] coronary artery without angina pectoris Code(s): I25.10 - Atherosclerotic heart disease of [place] coronary artery without angina pectoris Status: Acute [...] by MD Itzel Adams> 07/19/2235 [facility] Work Phone: 1(626) 817-800911-09-2022 Progress note Author Sang Bauer [facility] July 18, 2022 3:24pm Note Date/Time July 18, 2022 3 :24pm [facility] [address] [place] [address] Hospitalist Progress Note Signed Patient: Taylor Mcclellan SR MR#: [id number] : 1955 Acct:[id number] Age/Sex: 66 / M Adm Date: 2 Loc: Room: [address] [place] [address] Type: ADM INOo Attending Dr: Sang Bauer [...] Insuln.Pen SUBCUT 07/17/23 21:59 Not Given TID.WM.HS [facility] Protocol Lamotrigine 100 mg 07/18/22 [...] <Electronically signed by Sang Bauer MD> 07/18/22 4208 [facility] Work Phone: 1(880) 156-758511-09-2022 History and physical note Author Sang Bauer [facility] July 18, 2022 3:22pm Note Date/Time July 17, 2022 6 :41pm [facility] [address] [place] [address] Hospitalist H&P Signed Patient: Taylor Mcclellan SR MR#: [id number] : 1955 Acct:[id number] Age/Sex: 66 / M Adm Date: 2 Loc: Room: [address] [place] [address] Type: ADM INOo Attending Dr: Sang Bauer [...] at home. Reportedly patient was taken to [facility] couple days ago when he was [...] his live in a mobile home in [place]. Meds Medications and Allergies Allergies chlordiazepoxide [From [...] 07/17/22] hydrocodone 5 mg-acetaminophen 325 mg tablet ([place]) 1 tab PO BID PRN Pain #0 [...] % (Auto) 29.5 % (.) 07/17/22 15:44 [place] % (Auto) 5.4 % (.) 07/17/22 15:44 Eos % (Auto) 0.7 % (.) 07/17/22 15:44 Baso % (Auto) 1.0 % (.) 07/17/22 15:44 Neut # (Auto) 4.9 x10E3/uL (1.8-7.7) 07/17/22 15:44 Lymph # (Auto) 2.3 x10E3/uL (1.00-4.8) 07/17/22 15:44 [place] # (Auto) 0.4 x10E3/uL (0.0-0.8) 07/17/22 15:44 [...] signed by Sang Bauer MD> 07/18/22 1521 [facility] Work Phone: 1([phone]) 681-493711-09-2022 Consult note Author Itzel Adams [facility] July 18, 2022 11:46am Note Date/Time July 18, 2022 1 1:43am [facility] [address] [place] [address] Cardiology Consult Note Signed Patient: Taylor Mcclellan MR#: [id number] : 1955 Acct:[id number] Age/Sex: 66 / M Adm Date: 2 Loc: Room: [address] [place] [address] Type: ADM INOo Attending Dr: Sang Bauer MD Copies to: MD Genesis Goetz MD Mourhaf A Traboulssi, MD~ Cardiology HPI History of Present Illness Consult Date: 07/18/22 Reason for Consult: Chest pain HPI: Mr. Mcclellan is a 66 year old male with known history of coronary artery disease and prior bypass surgery done in [place]. No records available. Patient report to have [...] his live in a mobile home in [place]. Meds Medications and Allergies Allergies chlordiazepoxide [From [...] 07/17/22] hydrocodone 5 mg-acetaminophen 325 mg tablet ([place]) 1 tab PO BID PRN Pain #0 [...] x10E3/uL Lymph # (Auto) 2.3 (1.00-4.8) x10E3/uL [place] # (Auto) 0.4 (0.0-0.8) x10E3/uL Eos # [...] @ 100 mls/hr IV ONCE ONE Rx #:[id number] Oral 0 / 0 50 / 50 [...] it is a single-vessel bypass done in [place] record is not available patient and his cannot remember which hospital he had his surgery at. He does not follow with cardiology Qualifiers: Coronary Disease-Associated Artery/Lesion type: [place] artery [place] vs. transplanted heart: [place] heart Associated angina: without angina Qualified Code(s): I25.10 - Atherosclerotic heart disease of [place] coronary artery without angina pectoris Code(s): I25.10 - Atherosclerotic heart disease of [place] coronary artery without angina pectoris (3) Hx [...] MD Itzel Adams> 07/18/22 1146 [facility] Work Phone: 1([phone]) 112-599611-08-2022 History and physical note Author Sang Bauer [facility] July 18, 2022 3:22pm Note Date/Time July 17, 2022 6 :41pm [facility] [address] [place] [address] Hospitalist H&P Signed Patient: Taylor Mcclellan SR MR#: [id number] : 1955 Acct:[id number] Age/Sex: 66 / M Adm Date: 2 Loc: 3T Room: [address] [place] [address] Type: ADM INOo Attending Dr: Sang Bauer [...] at home. Reportedly patient was taken to [facility] couple days ago when he was [...] his live in a mobile home in [place]. Meds Medications and Allergies Allergies chlordiazepoxide [From [...] 07/17/22] hydrocodone 5 mg-acetaminophen 325 mg tablet ([place]) 1 tab PO BID PRN Pain #0 [...] % (Auto) 29.5 % (.) 07/17/22 15:44 [place] % (Auto) 5.4 % (.) 07/17/22 15:44 Eos % (Auto) 0.7 % (.) 07/17/22 15:44 Baso % (Auto) 1.0 % (.) 07/17/22 15:44 Neut # (Auto) 4.9 x10E3/uL (1.8-7.7) 07/17/22 15:44 Lymph # (Auto) 2.3 x10E3/uL (1.00-4.8) 07/17/22 15:44 [place] # (Auto) 0.4 x10E3/uL (0.0-0.8) 07/17/22 15:44 [...] 1838 Signed By: <Electronically signed by Sang Buaer MD> 07/18/22 152 [facility] Work Phone: 1(151) 828-594001-07-2019 Consult note Author Itzel Adams [facility] July 18, 2022 11:46am Note Date/Time July 18, 2022 1 1:43am [facility] [address] [place] [address] Cardiology Consult Note Signed Patient: Taylor Mcclellan SR MR#: [id number] : 1955 Acct:[id number] Age/Sex: 66 / M Adm Date: 2 Loc: Room: [address] [place] [address] Type: ADM INOo Attending Dr: Sang Bauer MD Copies to: MD Genesis Goetz MD Mourhaf A Traboulssi, MD~ Cardiology HPI History of Present Illness Consult Date: 07/18/22 Reason for Consult: Chest pain HPI: Mr. Mccllelan is a 66 year old male with known history of coronary artery disease and prior bypass surgery done in [place]. No records available. Patient report to have [...] his live in a mobile home in [place]. Meds Medications and Allergies Allergies chlordiazepoxide [From [...] 07/17/22] hydrocodone 5 mg-acetaminophen 325 mg tablet ([place]) 1 tab PO BID PRN Pain #0 [...] x10E3/uL Lymph # (Auto) 2.3 (1.00-4.8) x10E3/uL [place] # (Auto) 0.4 (0.0-0.8) x10E3/uL Eos # [...] @ 100 mls/hr IV ONCE ONE Rx #:[id number] Oral 0 / 0 50 / 50 [...] it is a single-vessel bypass done in [place] record is not available patient and his cannot remember which hospital he had his surgery at. He does not follow with cardiology Qualifiers: Coronary Disease-Associated Artery/Lesion type: [place] artery [place] vs. transplanted heart: [place] heart Associated angina: without angina Qualified Code(s): I25.10 - Atherosclerotic heart disease of [place] coronary artery without angina pectoris Code(s): I25.10 - Atherosclerotic heart disease of [place] coronary artery without angina pectoris (3) Hx [...] signed by MD Itzel Adams> 07/18/22 1146 [facility] Work Phone: Discharge summary Author Sang [facility] July 20, 2022 6:39pm Note Date/Time July 20, 2022 3:04pm [facility] [address] [place] [address] Discharge Summary Signed Patient: Taylor Mcclellan MR#: [id number] : 1955 Acct:[id number] Age/Sex: 66 / M Adm Date: 2 Loc: 3T Room: [address] [place] [address]: Sang Bauer MD Copies to: [...] affect Discharge Plan Discharge Plan Patient Disposition: [facility] Facility Activity: No Activity Restriction Diet: Low-Sodium [...] tablet 75 mg PO DAILY Discontinued hydrocodone-acetaminophen [[place]] 5-325 mg tablet 1 tab PO BID PRN (Reason: Pain) Qty: 0 0RF Other Ambulatory Orders: DME Home Medical Equipment (Routine) Timeframe: 20220720 Location: Determined by Patient Ordered By: Sang Bauer Follow Up: Lilia Hopper APRN [Nurse Practitioner] - 08/22/22 10:30 am Documented By: Sang Bauer MD 07/20/22 1502 Signed By: <Electronically signed by Sang Bauer MD> 07/20/22 1857 [facility] Work Phone: evaluation note* Diagnosis Onset Date Resolution Status Chest pain acute Coronary artery disease acut e Generalized weakness acute Hx of CABG acute Diabetes mellitus chronic HTN (hypertension) chronic [facility] Work Phone: Evaluation note* Diagnosis Onset Date Resolution Status Bipolar 1 disorder, depressed, severe acute Chest pain acute Coronary artery disease acut e Generalized weakness acute Hx of CABG acute Chronic back pain chronic Diabetes mellitus chronic HTN (hypertension) chronic [facility] Work Phone: [employer] noteNo assessment information available [facility] Work Phone: evaluation noteNo InformationNort [employer] Other Evaluation note* Diagnosis Primary hypertension (CMS/HCC)- [...] Surgical History CABG Hospitalization History see above [facility] Other Hospital Discharge instructions Additional Instructions SNF TO MANAGE: PT/OT to eval and treat Monitor VS per protocol--HTN Monitor FSBS Maintain high risk fall precautions Care [facility] be [facility] Work Phone: Progress note Author Sang Bauer [facility] July 18, 2022 3:24pm Note Date/Time July 18, 2022 3 :24pm [facility] [address] [place] [address] Hospitalist Progress Note Signed Patient: Taylor Mcclellan SR MR#: [id number] : 1955 Acct:[id number] Age/Sex: 66 / M Adm Date: 2 Loc: Room: [address] [place] [address] Type: ADM INOo Attending Dr: Sang Bauer [...] 25 Mg Tablet PO 07/18/23 13:59 TID [facility] Insulin Aspart 0 units 07/17/22 22:00 07/18/22 11:48 Insulin Aspart 300 Units/3 Ml Insuln.Pen SUBCUT 07/17/23 21:59 Not Given TID.WM.HS [facility] Protocol Lamotrigine 100 mg 07/18/22 [...] signed by Sang Bauer MD> 07/18/22 1526 [facility] Work Phone: Progress note Author Itzel Adams [facility] July 19, 2022 8:35am Note Date/Time July 19, 2022 8:35am [facility] [address] [place] [address] Cardiology Progress Note Signed Patient: Taylor Mcclellan SR MR#: [id number] : 1955 Acct:[id number] Age/Sex: 66 / M Adm Date: 2 Loc: Room: [address] [place] [address] Type: ADM INOo Attending Dr: Sang Bauer [...] it is a single-vessel bypass done in [place] record is not available patient and his cannot remember which hospital he had his surgery at. He does not follow with cardiology Qualifiers: Coronary Disease-Associated Artery/Lesion type: [place] artery [place] vs. transplanted heart: [place] heart Associated angina: without angina Qualified Code(s): I25.10 - Atherosclerotic heart disease of [place] coronary artery without angina pectoris Code(s): I25.10 - Atherosclerotic heart disease of [place] coronary artery without angina pectoris Status: Acute [...] <Electronically signed by MD Itzel Adams> 07/19/22834 [facility] Work Phone: Progress note Author Sang Bauer [facility] July 19, 2022 4:57pm Note Date/Time July 19, 2022 4:57pm [facility] [address] [place] [address] Hospitalist Progress Note Signed Patient: Taylor Mcclellan MR#: [id number] : 1955 Acct:[id number] Age/Sex: 66 / M Adm Date: 2 Loc: 3T Room: [address] [place] [address] Type: ADM INOo Attending Dr: Sang Bauer [...] Insuln.Pen SUBCUT 07/17/23 21:59 Not Given TID.WM.HS [facility] Protocol Lamotrigine 100 mg 07/18/22 [...] by Sang Bauer MD> 07/19/221656 [facility] Work Phone: Progress note Author Itzel Adams [facility] July 20, 2022 8:06am Note Date/Time July 20, 2022 8:06am [facility] [address] [place] [address] Cardiology Progress Note Signed Patient: Taylor Mcclellan MR#: [id number] : 1955 Acct:[id number] Age/Sex: 66 / M Adm Date: 2 Loc: Room: [address] [place] [address] Type: ADM INOo Attending Dr: Sang Bauer [...] it is a single-vessel bypass done in [place] record is not available patient and his cannot remember which hospital he had his surgery at. He does not follow with cardiology Qualifiers: Coronary Disease-Associated Artery/Lesion type: [place] artery [place] vs. transplanted heart: [place] heart Associated angina: without angina Qualified Code(s): I25.10 - Atherosclerotic heart disease of [place] coronary artery without angina pectoris Code(s): I25.10 - Atherosclerotic heart disease of [place] coronary artery without angina pectoris Status: Acute [...] <Electronically signed by MD Itzel Adams> 07/20/22805 [facility] Work Phone: Summary Purpose Family History [...] content) DATE CREATED AUTHOR 10/15/2019 [facility] DATE CREATED AUTHOR AUTHOR'S ORGANIZ ATION 11/29/2021 [facility] DATE CREATED AUTHOR AUTHOR'S ORGANIZ ATION 01/21/2023 [facility] DATE CREATED AUTHOR AUTHOR'S ORGANIZ ATION 01/23/2023 [facility] DATE CREATED AUTHOR AUTHOR'S ORGANIZ ATION 11/11/2023 [facility] DATE CREATED AUTHOR AUTHOR'S ORGANIZ ATION 03/30/2024 [facility] DATE CREATED AUTHOR AUTHOR'S ORGANIZ ATION 05/06/2024 [facility] DATE CREATED AUTHOR AUTHOR'S ORGANIZ ATION 09/19/2024 [facility] Care Teams (unrecognized sec tion [...] MD Other Provider Active Pily Winslow , [facility]- Other Provider Active Adelaide Leonardo MD [...] Active Benson Lane MD Attending Provider Active Figure Refinisher And Repairer Relationship Specialty Start Date End Date Bro Sanford MD PCP - General Family Medicine 12/26/16 [employer]isher [employer] Repairer Relationship Specialty Start Date End Date Ebenezer Hopkins MD [address] [place] [address] PCP - General Psychiatry 04/26/23 Team Status: Inactive Member Role Status Dates Genesis Reynolds MD Attending Provider Active Sta rt: September 09, 2024 End: September 09, 2024 Figure Refinisher And Repairer Relationship Specialty Start Date End Date Ebenezer Hopkins MD [address] [facility] [place] [address] PCP - General Psychiatry 04/26/23 Goals (unrecognized [...] BE BASED ON THE PRIMARY CLINICAL RECORDS. [employer] [facility]. provides no warranty or guarantee of the accuracy or completeness of information in this document.
--- NOTE | 2024-09-29 07:20 | P.HP_ITS ---
HPI H&P: HPI History of Present Illness Chief complaint: AMS,CHF Narrative: Patient is a resident at long term facility, presented to the emergency room with increasing cough and shortness of breath, found to have acute bilateral pneumonia with bandemia, acute hypoxia, patient initially admitted to the medical surgical floor and transferred back to the intensive care unit secondary to severe hypotension with a mean arterial pressure of 54 I saw patient up in the intensive care unit, resting fairly comfortably in bed with the BiPAP mask on, does describe the shortness of breath, no chest pain, did not discuss his back pain which is usually his main issue Opioid HPI Opioid Management Most Recent Pain and Opioid Data: Last Pain Scale 0 09/12/24 10:23 09/12/24 Last Pain Intensity 0 09/12/24 10:23 09/12/24 Last Pain Assessment 09/29/24 07:00 Last ORT Total Score 0 09/29/24 01:35 09/29/24 Last ORT Risk Category Low Risk 09/29/24 01:35 09/29/24 Ur Phencyclidine Scrn Negative (NEGATIVE) 11/05/23 16:26 0204/01 Review of Systems ROS Status of ROS 10 or more systems reviewed and unremark able except as noted in history and below [facility] Medical History Acute metabolic encephalopathy ?G93.41 - Metabolic encephalopathy (ICD-10) Dehydration ?E86.0 - Dehydration (ICD-10) Acute kidney injury superimposed on chronic kidney disease ?N17.9 - Acute kidney failure, unspecified (ICD-10) ?N18.9 - Chronic kidney disease, unspecified (ICD-10) Generalized weakness ?R53.1 - Weakness (ICD-10) Accidental fall ?W19.XXXA - Unspecified fall, initial encounter (ICD-10) COVID-19 ?U07.1 - COVID-19 (ICD-10) Pneumonia ?J18.9 - Pneumonia, unspecified organism (ICD-10) Seizure disorder ?G40.909 - Epilepsy, unspecified, not intractable, without status epilepticus (ICD-10) Altered mental status ?R41.82 - Altered mental status, unspecified (ICD-10) Weakness ?R53.1 - Weakness (ICD-10) Ambulatory dysfunction ?R26.2 - Difficulty in walking, not elsewhere classified (ICD-10) Fall ?W19.XXXA - Unspecified fall, initial encounter (ICD-10) Chronic low back pain with bilateral sciatica ?M54.41 - Lumbago with sciatica, right side (ICD-10) ?M54.42 - Lumbago with sciatica, left side (ICD-10) ?G89.29 - Other chronic pain (ICD-10) Altered mental status ?R41.82 - Altered mental status, unspecified (ICD-10) Chronic back pain ?M54.9 - Dorsalgia, unspecified (ICD-10) ?G89.29 - Other chronic pain (ICD-10) Orthostatic dizziness ?R42 - Dizziness and giddiness (ICD-10) Accidental fall ?W19.XXXA - Unspecified fall, initial encounter (ICD-10) CAD (coronary artery disease) ?I25.10 - Atherosclerotic heart disease of [place] coronary artery without angina pectoris (ICD-10) Back pain ?M54.9 - Dorsalgia, unspecified (ICD-10) 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 - Fusion of spine, lumbar region (ICD-10) High cholesterol ?E78.00 - Pure hypercholesterolemia, unspecified (ICD-10) Hypertension ?I10 - Essential (primary) hypertension (ICD-10) IDDM (insulin dependent diabetes mellitus) Restless leg syndrome ?G25.81 - Restless legs syndrome (ICD-10) Suicidal ideation ?R45.851 - Suicidal ideations (ICD-10) Sleep apnea ?G47.30 - Sleep apnea, unspecified (ICD-10) Anxiety ?F41.9 - Anxiety disorder, unspecified (ICD-10) Metabolic encephalopathy ?G93.41 - Metabolic encephalopathy (ICD-10) Depression ?F32.A - Depression, unspecified (ICD-10) Acute renal failure ?N17.9 - Acute kidney failure, unspecified (ICD-10) Altered mental status ?R41.82 - Altered mental status, unspecified (ICD-10) Surgical History S/P CABG (coronary artery bypass graft) ?Z95.1 - Presence of aortocoronary bypass graft (ICD-10) History of heart artery stent ?Z95.5 - Presence of coronary angioplasty implant and graft (ICD-10) Family History Mother Family history of myocardial infarction Social History Within the past year, how often did you have a drink containing alcohol: never Score interpretation: A score less than 4 is consistent with normal alcohol consumption. 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 Known occupational exposures/hazards: No Highest level of school completed/degree received: high school graduate Do you want help with school or training: No Are you now , , , , never or living with a partner: In a typical week, how many times do you talk on the telephone with family, friends, or neighbors: never How often do you get together with friends or relatives: never How often do you attend moravian or judaism services: never Do you belong to any clubs or organizations such as moravian groups unions, [employer] or athletic groups, or school groups: no Total score: 1 Score interpretation: A score of less than or equal to 1 indicates the most socially isolated. Little interest or pleasure in doing things: nearly every day Feeling down, depressed, or hopeless: several days Feel stressed/tense/nervous/anxious/difficulty sleeping: very much Life stressors: recent of family or friend Life stressor details: mother and step father a year ago Due to disability, difficulty making decisions: No Do you think of yourself as: straight/heterosexual Gender Identity: male Meds Home Medications and Allergies Home Medications ?Medication ?Instructions ?Recorded ?Confirmed ?Type carvedilol 12.5 mg tablet (Coreg) 12.5 mg PO BID 03/14/23 09/28/24 History clopidogrel 75 mg tablet 75 mg PO QDAY 03/14/23 09/28/24 History celecoxib 200 mg capsule 200 mg PO DAILY #30 caps 03/15/23 09/28/24 Rx mirtazapine 45 mg tablet 45 mg PO .QHS 11/05/23 09/28/24 History cyclobenzaprine 10 mg tablet 10 mg PO TID 04/14/24 09/28/24 History divalproex 500 mg tablet,delayed 500 mg PO Q12H 04/14/24 09/28/24 History release ezetimibe 10 mg tablet 10 mg PO .qhs 04/14/24 09/28/24 History famotidine 40 mg tablet 40 mg PO DAILY 04/14/24 09/28/24 History gabapentin 600 mg tablet 600 mg PO QID 04/14/24 09/28/24 History tamsulosin 0.4 mg capsule 0.4 mg PO .qhs 04/14/24 09/28/24 History acetaminophen 500 mg capsule 500 mg PO TID 05/03/24 09/28/24 History multivitamin with folic acid 1 tab PO DAILY 05/03/24 09/28/24 History aspirin 81 mg tablet,delayed 81 mg PO DAILY 05/21/24 09/28/24 History release atorvastatin 80 mg tablet 80 mg PO DAILY 05/21/24 09/28/24 History primidone 50 mg tablet 50 mg PO DAILY 05/21/24 09/28/24 History triamcinolone acetonide 0.1 % 1 applic topical BID PRN rash 05/21/24 09/28/24 History topical cream losartan 50 mg tablet 50 mg PO DAILY 09/10/24 09/28/24 History nicotine 21 mg/24 hr daily 1 patch transdermal Q24H 09/10/24 09/28/24 History transdermal patch nicotine 7 mg/24 hr daily 1 patch transdermal Q24H 09/10/24 09/29/24 History transdermal patch albuterol sulfate 90 mcg/actuation 2 puff inhalation Q6H #8.5 grams 09/13/24 09/28/24 Rx aerosol inhaler tramadol 100 mg tablet 100 mg PO Q6H PRN pain #120 tabs 09/13/24 09/29/24 Rx docusate sodium 100 mg capsule 100 mg PO DAILY PRN constipation 09/28/24 09/29/24 History (Col-Rite) guaifenesin 600 mg tablet, 600 mg PO BID PRN cough 09/28/24 09/28/24 History extended release 12 hr (Mucinex) ipratropium bromide 0.02 % 2.5 ml inhalation QID PRN 09/28/24 09/28/24 History solution for inhalation shortness of breath or wheezing Allergies Allergy/AdvReac Type Severity Reaction Status Date / Time amitriptyline Allergy Unknown Verified 09/28/24 21:17 citalopram Allergy Unknown Verified 09/28/24 21:17 fentanyl Allergy Unknown Verified 09/28/24 21:17 simvastatin (From Zocor) Allergy Unknown Verified 09/28/24 21:17 succinylcholine Allergy Unknown Verified 09/28/24 21:17 venlafaxine (From Effexor) Allergy Unknown Verified 09/28/24 21:17 Exam Constitutional Vital Signs, click to edit/add: Last Vital Signs Temp 98.6 F 09/29/24 04:00 Pulse 109 H 09/29/24 06:07 Resp 28 H 09/29/24 05:45 BP 95/60 09/29/24 05:45 Pulse Ox 93 L 09/29/24 05:45 O2 Del Method Nasal Cannula 09/29/24 05:17 O2 Flow Rate 5 09/29/24 05:17 FiO2 40 09/29/24 05:26 Documenting provider has reviewed patient's vital signs: yes Common normals: apparent distress (Mild respiratory distress, cough throughout the eval) Chest Common normals: inspection of chest normal Respiratory Common normals: no retractions and no use of accessory muscles; abnormal respiratory effort (Conversational dyspnea) Auscultation: rhonchi Cardio Common normals: regular rate and regular rhythm GI Common normals: Normal to inspection, nondistended, normoactive bowel sounds present, soft to palpation and non-tender Extremity Common normals: normal to inspection, full ROM, normal capillary refill and no clubbing, cyanosis or edema Results Labs Labs: Short CBC 09/28/24 09/29/24 Range/Units 21:05 05:30 WBC 4.4 4.2 (4.0-11.0) 10^3/uL Hgb 11.9 L 11.4 L (14.0-18.0) g/dL Hct 36.3 L 34.4 L (42.0-54.0) % Plt Count 171 171 (150-450) 10^3/uL BMP 09/28/24 09/29/24 21:05 05:30 Sodium 142 144 Potassium 4.8 3.8 Chloride 105 108 H Carbon Dioxide 27.8 23.9 BUN 37.0 H 41.0 H Creatinine 2.24 H 2.06 H Glucose 177 H 135 H Calcium 8.4 L 8.1 L Liver Function 09/28/24 09/29/24 Range/Units 21:05 05:30 Total Bilirubin 0.5 0.6 (0.2-1.0) mg/dL AST 23 32 (15-37) U/L ALT 22 16 (16-63) U/L Alkaline Phosphatase 44 L 36 L (46-116) U/L Albumin 2.7 L 2.4 L (3.4-5.0) g/dL ABG ABG results: 09/29/24 05:30 VBG pH 7.449 H VBG pCO2 32.6 L Assessment and Plan Assessment and Plan (1) Pneumonia: Qualifiers: Laterality: bilateral Lung location: unspecified part of lung Pneumonia type: due to unspecified organism Qualified Code(s): J18.9 - Pneumonia, unspecified organism (2) Lumbar radiculopathy: (3) Hypertension: Qualifiers: Hypertension type: primary hypertension Qualified Code(s): I10 - Essential (primary) hypertension Plan Admit findings: Acute hypoxic respiratory failure requiring BiPAP ventilation, O2 sat of 81%, sinus tachycardia, respiratory distress, severe hypotension with a mean arterial pressure of 54, bandemia, acute kidney injury with baseline creatinine of 0.91 on his wellness exam, 2.24 on admission which is 246.1% above baseline resulting in stage II acute kidney injury, due to bilateral pneumonia resulting in sepsis with an acute exacerbation of COPD Sepsis due to bilateral pneumonia resulting in acute exacerbation of COPD- steroids, antibiotics, aerosol treatments, sputum cultures obtained, blood cultures are pending, maintain BiPAP ventilation at least while sleeping, hopefully during the day and awake and up in chair he can try nasal cannula supplemental oxygen, unable to give large volume of fluid resuscitation secondary to the elevated BNP and a history of heart failure Multisystem organ dysfunction with altered mental status, acute kidney injury as outlined above, and acute respiratory failure requiring BiPAP ventilation and elevated BNP consistent with myocardial dysfunction Acute kidney injury as outlined above-BNP is also elevated I think this may be related to the creatinine, BNP repeat this morning is pending if it is improved from previous day may try small fluid boluses to improve acute kidney injury, echocardiogram pending Elevated BNP-this may be related to his creatinine he has no peripheral edema, although lung exam could be consistent with heart failure Diabetes mellitus-Place patient on insulin sliding scale, likely to get worse with the need for steroids Moderate protein calorie malnutrition-diet supplement Lumbar radiculopathy-maintain pain medications used prior Hypomagnesemia-IV supplementation and oral supplementation to follow Hypercholesterolemia continue with home medications GERD-IV Protonix, for stress ulcer prevention Hypertension-hold medications currently secondary to hypotension due to the sepsis BPH-continue with home medications Tremor-continue with home medications Admission status: Patient was acute hypoxic respiratory failure requiring BiPAP ventilation, due to use bilateral pneumonia resulting in sepsis with multisystem organ dysfunction, medically necessary treatment will span 2 midnights. Inpatient status Urinary Catheter Management Urinary Catheter Management Urethral: Cath placed during this visit: yes Urethral indwelling: Yes Reason for continuing: acute urinary retention Insertion date: 09/29/24 Insertion time: 00:45
[2024-09-29 07:45] LABS: Troponin I High Sensitivity 19.7 pg/mL (4.0-76.1)
--- NOTE | 2024-09-29 07:59 | CA_ITS ---
Patient Name: TAYLOR MCCLELLAN MR#: [id number] : 1955 Exam Date: 09/29/2024 Ordering Doctor: DR GENESIS REYNOLDS . ECHOCARDIOGRAM REPORT PROCEDURE: CA ECHO LIMITED INDICATIONS: elevated bnp, pneumonia, CABG, hypertension, diabetes COMPARISON: None. DESCRIPTION: Limited ECHOCARDIOGRAM Real-time transthoracic echocardiography with 2D and M-mode performed. QUALITY: Limited echocardiogram per physician order. LEFT VENTRICLE: Normal chamber size. Mild concentric left ventricular hypertrophy. Normal systolic function. LV EF: Normal left ventricular ejection fraction, (55%). DIASTOLIC: ATRIAL SEPTUM: LEFT ATRIUM: Normal chamber size. RIGHT ATRIUM: Normal chamber size. RIGHT VENTRICLE: Normal chamber size. Normal systolic function. TRICUSPID VALVE: Normal mobility and thickness. MITRAL VALVE: Normal mobility and thickness. AORTIC VALVE: Normal trileaflet appearance. No visible sclerosis. Normal leaflet mobility. Moderate posterior mitral annular calcification. AORTIC ROOT: Normal diameter and appearance. PULMONIC VALVE: Not well visualized. PERICARDIUM: No evidence of pericardial effusion. IVC: PLEURA: CONCLUSION: 1. Mild concentric left ventricular hypertrophy with normal systolic function. Estimated LVEF is 55%. 2. Normal right ventricular size and systolic function. 3. No pericardial effusion. 4. Limited study performed with no Doppler interrogation as requested. Adult Echocardiography Procedure Report Left Ventricle LVEDD (3.7 - 5.6 cm): 3.80 cm LVESD (2.2 - 4.0 cm): 2.94 cm LVIVS thickness (0.6 - 1.2 cm): 1.18 cm LVPW thickness (0.5 - 1.0 cm): 1.07 cm LVOT Diameter 2.09 cm Left Atrium Left Atrium Systolic Dimension: 3.84 cm Mitral Valve Right Ventricle Aorta AO Root Diam: 3.67 cm Aortic Valve Tricuspid Valve Pulmonic Valve Right Atrium Dictated by: Sudarshan Foss M.D. on 09/29/2024 at 18:58 Approved by: Sudarshan Foss M.D. on 09/29/2024 at 19:01
[2024-09-29] MEDS: ATORVASTATIN CALCIUM 40 MG TABLET 80 MG PO (09:01)
[2024-09-29] MEDS: METHYLPREDNISOLONE SOD SUCC PF 125 MG/2 ML VIAL IVP (09:01)
[2024-09-29] MEDS: PANTOPRAZOLE SODIUM 40 MG VIAL IV (09:01)
[2024-09-29] MEDS: LACTATED RINGER'S SOLUTION 1,000 ML 100 ML IV ×2 (09:01→20:39)
[2024-09-29] MEDS: HEPARIN SODIUM (PORCINE) 5,000 UNIT/ML VIAL 5000 UNIT SUBQ ×2 (09:02→20:40)
--- NOTE | 2024-09-29 09:07 | SWNOTE1 ---
SW received email from Elisa at [facility] and pt was there skilled and he was supposed to return to Assisted Living today, but will need to be evaluated while here to see if safe to return to [place].
[2024-09-29 09:24] LABS: Bilirubin Urine SMALL (NEGATIVE); Blood Urine NEGATIVE (NEGATIVE); Clarity Urine CLEAR (CLEAR); Color Urine DK. YELLOW (YELLOW); Glucose Urine UA NEGATIVE (NEGATIVE); Ketones Urine 15 mg/dL (NEGATIVE); Leukocyte Esterase Urine NEGATIVE (NEGATIVE); Nitrite Urine NEGATIVE (NEGATIVE); Protein Urine TRACE mg/dL (NEG/TRACE); Specific Gravity Urine 1.025 (1.005-1.025); pH Urine 5.5 (5.0-9.0)
[2024-09-29] MEDS: 0.9 % SODIUM CHLORIDE 1,000 ML 500 ML IV (09:25)
[2024-09-29] MEDS: LINEZOLID IN DEXTROSE 5% 600 MG/300 ML PIGGYBACK 300 MG IV ×2 (09:29→20:43)
[2024-09-29 09:56] LABS: WBC Urine NONE SEEN #/HPF (NONE SEEN)
[2024-09-29 09:57] LABS: Bacteria Urine NONE SEEN #/HPF (NONE SEEN); Mucus Urine TRACE (NONE SEEN); RBC Urine NONE SEEN #/HPF (0-2); Squamous Epithelial Cell Urine FEW #/LPF (NONE/RARE)
[2024-09-29 09:58] LABS: Lactate/Lactic Acid 2.1 mmol/L (0.4-2.0)
--- NOTE | 2024-09-29 10:00 | SWNOTE1 ---
ISABELLA sent ED note, H&P, vitals, labs, med list, diagnostic imaging, and OT note to Elisa at [facility]. At this time SNF is still recommended.
[2024-09-29] MEDS: MAGNESIUM SULFATE IN WATER 4 GM/100 ML PIGGYBACK IV (10:46)
[2024-09-29 11:50] LABS: Glucometer 199 mg/dL (74-106)
[2024-09-29] MEDS: PIPERACILLIN SODIUM/TAZOBACTAM 3.375 GM in 0.9 % SODIUM CHLORIDE 50 ML IV ×2 (11:54→20:39)
[2024-09-29] MEDS: INSULIN ASPART 300 UNIT/3 ML PEN SUBQ ×3 (11:54→21:12)
[2024-09-29 12:39] LABS: Lactate/Lactic Acid 1.8 mmol/L (0.4-2.0)
[2024-09-29] MEDS: HYDROCORTISONE SODIUM SUCC PF 100 MG/2 ML VIAL IVP ×2 (13:45→20:43)
--- NOTE | 2024-09-29 13:48 | SWNOTE1 ---
ISABELLA stopped in to complete assessment with pt. Pt sleeping at this time. ISABELLA called pt's son, Eliu. ISABELLA and Eliu spoke about pt returning to [facility] for more rehab once he is stable for discharge. Eliu in agreement. He voiced that a few days ago he had chest xray and no pneumonia and now he has pneumonia. He also stated the other day at [facility] pt was pretty confused. He also stated that pt does not always drink enough and is dehydrated. ISABELLA advised that pt is now turned down to 3 liters of oxygen. Eliu thought at [facility] he was not on any. At this time Eliu had no further questions, SW to keep him updated.
--- NOTE | 2024-09-29 13:51 | SWNOTE1 ---
Important Message from [employer] reviewed and discussed with patient's son Eliu Knight. Pt's son Eliu verbalized understanding and SW signed the form that it was reviewed. Original placed in pt's room and copy placed in patient?s chart.
[2024-09-29 16:36] LABS: Glucometer 190 mg/dL (74-106)
[2024-09-29 21:18] LABS: Glucometer 204 mg/dL (74-106)
[2024-09-30] VITALS (24 sets, daily range): BP systolic 103–125; BP diastolic 52–71; PULSE 67–97; TEMP 36.1–36.9; O2SAT 81–99
[2024-09-30] MEDS: PIPERACILLIN SODIUM/TAZOBACTAM 3.375 GM in 0.9 % SODIUM CHLORIDE 50 ML IV ×3 (04:36→22:03)
[2024-09-30] MEDS: IPRATROPIUM/ALBUTEROL SULFATE 3 ML AMPUL.NEB IH ×4 (04:38→23:35)
[2024-09-30] MEDS: HYDROCORTISONE SODIUM SUCC PF 100 MG/2 ML VIAL IVP (04:43)
[2024-09-30 05:38] LABS: Basophils Percent Auto 0.6 % (0.2-2.0); Hemoglobin 10.2 g/dL (14.0-18.0); Immature Granulocytes Abs Auto 0.15 10^3/uL (0.00-0.03); Immature Granulocytes Pct Auto 2.3 % (0.0-0.5); Mean Corpuscular HGB Conc 32.9 g/dL (29.9-35.2); Mean Corpuscular Volume 91.2 fL (80.0-94.0); Mean Platelet Volume 12.7 fL (9.5-13.5); Monocytes Absolute Auto 0.7 10^3/uL (0.3-0.8); Monocytes Percent Auto 10.7 % (1.7-12.0); Neutrophils Absolute Auto 4.6 10^3/uL (1.4-6.5); Neutrophils Percent Auto 71.4 % (43.0-75.0); Platelet Count 171 10^3/uL (150-450); Red Cell Distribution Width 13.5 % (11.0-15.0); White Blood Count 6.5 10^3/uL (4.0-11.0)
[2024-09-30] MEDS: LACTATED RINGER'S SOLUTION 1,000 ML 100 ML IV (06:02)
[2024-09-30 06:08] LABS: Alanine Aminotransferase 27 U/L (16-63); Albumin Globulin Ratio 0.5; Albumin Level 2.1 g/dL (3.4-5.0); Alkaline Phosphatase 36 U/L (46-116); Anion Gap 14.5; Aspartate Amino Transferase 67 U/L (15-37); Bilirubin Total 0.3 mg/dL (0.2-1.0); Carbon Dioxide 26.3 mmol/L (21.0-32.0); Chloride 107 mmol/L (98-107); Estimated GFR (African America >60 (>=60 mL/min/1.73m^2); Estimated GFR (Non-African Ame 55 (>=60 mL/min/1.73m^2); Globulin 4.1 g/dL; Glucose 175 mg/dL (74-106); Potassium 3.8 mmol/L (3.5-5.1); Sodium 144 mmol/L (136-145); Total Protein 6.2 g/dL (6.4-8.2)
[2024-09-30 06:29] LABS: A. calcoaceticus-baumannii Cpx NOT DETECTED (NOT DETECTE); Bacteroides fragilis NOT DETECTED (NOT DETECTE); Candida albicans NOT DETECTED (NOT DETECTE); Candida auris NOT DETECTED (NOT DETECTE); Candida glabrata NOT DETECTED (NOT DETECTE); Candida krusei NOT DETECTED (NOT DETECTE); Candida parapsilosis NOT DETECTED (NOT DETECTE); Candida tropicalis NOT DETECTED (NOT DETECTE); Cryptococcus neoformans/gattii NOT DETECTED (NOT DETECTE); Enterobacter cloacae complex NOT DETECTED (NOT DETECTE); Enterobacterales NOT DETECTED (NOT DETECTE); Enterococcus faecalis NOT DETECTED (NOT DETECTE); Enterococcus faecium NOT DETECTED (NOT DETECTE); Haemophilus influenzae NOT DETECTED (NOT DETECTE); Klebsiella aerogenes NOT DETECTED (NOT DETECTE); Klebsiella pneumoniae group NOT DETECTED (NOT DETECTE); Listeria monocytogenes NOT DETECTED (NOT DETECTE); Neisseria meningitidis NOT DETECTED (NOT DETECTE); Proteus spp. NOT DETECTED (NOT DETECTE); Pseudomonas aeruginosa NOT DETECTED (NOT DETECTE); Salmonella spp. NOT DETECTED (NOT DETECTE); Serratia marcescens NOT DETECTED (NOT DETECTE); Staphylococcus epidermidis NOT DETECTED (NOT DETECTE); Staphylococcus lugdunensis NOT DETECTED (NOT DETECTE); Stenotrophomonas maltophilia NOT DETECTED (NOT DETECTE); Streptococcus agalactiae NOT DETECTED (NOT DETECTE); Streptococcus pneumoniae NOT DETECTED (NOT DETECTE); Streptococcus pyogenes NOT DETECTED (NOT DETECTE); Streptococcus spp. NOT DETECTED (NOT DETECTE)
--- NOTE | 2024-09-30 07:20 | XR_ITS ---
The [address] [address] Patient Name: TAYLOR MCCLELLAN MRN: [id number] date: 1955 Sex: M Assigned Patient Location: ICU Current Patient Location: ICU Accession/Order Number: [id number] Exam Date: 09/30/2024 07:28 Report Date: 09/30/2024 07:45 At the request of: GENESIS REYNOLDS Procedure: XR chest 1V EXAMINATION: XR chest 1V HISTORY: hypoxia COMPARISON: XR chest 09/28/2024 FINDINGS: LUNGS: Moderate bilateral infiltrates predominantly involving the medial mid and lower lung regions. VASCULATURE: No increased pulmonary vasculature. PLEURA: No pneumothorax, effusion, or pleural thickening. CARDIAC: Stable cardiomegaly. Prior sternotomy. MEDIASTINUM: No visible mass or adenopathy. BONES: No fracture or visible bone lesion. OTHER: Negative. XR/XR chest 1V IMPRESSION: 1. Moderate bilateral pulmonary infiltrates; slightly improved. Electronically authenticated by: LIAM SCHUMACHER Date: 09/30/2024 07:45
[2024-09-30 07:46] LABS: Source BLOOD
[2024-09-30 07:49] LABS: Staphylococcus spp. DETECTED (NOT DETECTE); mecA/C and MREJ (MRSA) DETECTED (NOT DETECTE)
--- NOTE | 2024-09-30 08:19 | P.PN_ITS ---
Progress Note: Subjective Subjective Interval history: Patient looks much improved today, sitting up in bed, not on BiPAP currently, much more interactive today some cough during the evaluation Exam Constitutional Vital Signs, click to edit/add: Last Vital Signs Temp 97.5 F L 09/30/24 05:00 Pulse 78 09/30/24 05:58 Resp 18 09/30/24 05:00 BP 123/52 09/30/24 05:00 Pulse Ox 81 L 09/30/24 07:06 O2 Del Method Nasal Cannula 09/30/24 07:06 O2 Flow Rate 6 09/30/24 07:00 FiO2 40 09/30/24 05:00 Documenting provider has reviewed patient's vital signs: yes Common normals: no apparent distress Respiratory Common normals: no use of accessory muscles; abnormal respiratory effort (Cough and mild dyspnea) Auscultation: rhonchi Cardio Common normals: regular rate and regular rhythm GI Common normals: Normal to inspection, nondistended, normoactive bowel sounds present Extremity Common normals: normal to inspection, full ROM and no clubbing, cyanosis or edema Progress Note: Objective Labs Labs: Short CBC 09/30/24 Range/Units 04:58 WBC 6.5 (4.0-11.0) 10^3/uL Hgb 10.2 L (14.0-18.0) g/dL Hct 31.0 L (42.0-54.0) % Plt Count 171 (150-450) 10^3/uL BMP 09/30/24 04:58 Sodium 144 Potassium 3.8 Chloride 107 Carbon Dioxide 26.3 BUN 39.0 H Creatinine 1.30 Glucose 175 H Calcium 8.0 L Liver Function 09/30/24 Range/Units 04:58 Total Bilirubin 0.3 (0.2-1.0) mg/dL AST 67 H (15-37) U/L ALT 27 (16-63) U/L Alkaline Phosphatase 36 L (46-116) U/L Albumin 2.1 L (3.4-5.0) g/dL Urine 09/29/24 Range/Units 09:10 Urine Color Dk. yellow (YELLOW) Urine Clarity Clear (CLEAR) Urine pH 5.5 (5.0-9.0) Ur Specific [place] 1.025 (1.005-1.025) Urine Protein Trace (NEG/TRACE) mg/dL Urine Glucose (UA) Negative (NEGATIVE) mg/dL Progress Note: A&P Assessment and Plan (1) Pneumonia: Qualifiers: Laterality: bilateral Lung location: unspecified part of lung Pneumonia type: due to unspecified organism Qualified Code(s): J18.9 - Pneumonia, unspecified organism (2) Lumbar radiculopathy: (3) Hypertension: Qualifiers: Hypertension type: primary hypertension Qualified Code(s): I10 - Essential (primary) hypertension Plan Admit findings: Acute hypoxic respiratory failure requiring BiPAP ventilation, O2 sat of 81%, sinus tachycardia, respiratory distress, severe hypotension with a mean arterial pressure of 54, bandemia, acute kidney injury with baseline creatinine of 0.91 on his wellness exam, 2.24 on admission which is 246.1% above baseline resulting in stage II acute kidney injury, due to bilateral pneumonia resulting in sepsis with an acute exacerbation of COPD Sepsis due to bilateral pneumonia due to MRSA is identified on blood culture resulting in acute exacerbation of COPD-sensitivities for the MRSA are pending, patient overall is improved with white blood cell count improving and left shift resolved, maintain current antibiotic regiment until sputum and blood culture final have returned Multisystem organ dysfunction with altered mental status, acute kidney injury as outlined above, and acute respiratory failure requiring BiPAP ventilation and elevated BNP consistent with myocardial dysfunction-overall improved Acute kidney injury as outlined above-improved to baseline Elevated BNP-elevated somewhat today, still likely related to all of the above, will saline lock though since he is awake and able to take p.o. intake, no edema, no need for diuresis Diabetes mellitus-Place patient on insulin sliding scale, likely to get worse with the need for steroids Moderate protein calorie malnutrition-diet supplement Lumbar radiculopathy-maintain pain medications used prior Hypomagnesemia-continue supplementation Hypercholesterolemia continue with home medications GERD-IV Protonix, for stress ulcer prevention-hemoglobin is down slightly today, continue current IV Protonix Hypertension-blood pressure still stable hold off on medications currently BPH-continue with home medications Tremor-continue with home medications Admission status: Patient was acute hypoxic respiratory failure requiring BiPAP ventilation, due to use bilateral pneumonia resulting in sepsis with multisystem organ dysfunction, medically necessary treatment will span 2 midnights. Inpatient status with MRSA sepsis Urinary Catheter Management Urinary Catheter Management Urethral: Cath placed during this visit: yes Urethral indwelling: Yes Reason for continuing: measure accurate output Insertion date: 09/29/24 Insertion time: 00:45
[2024-09-30] MEDS: ASPIRIN 81 MG TABLET.DR PO (08:35)
[2024-09-30] MEDS: MAGNESIUM OXIDE 400 MG TABLET PO ×2 (08:35→22:00)
[2024-09-30] MEDS: DIVALPROEX SODIUM 500 MG TABLET.DR PO ×2 (08:35→22:00)
[2024-09-30] MEDS: CLOPIDOGREL BISULFATE 75 MG TABLET PO (08:35)
[2024-09-30] MEDS: PRIMIDONE 50 MG TABLET PO (08:35)
[2024-09-30] MEDS: ACETAMINOPHEN 500 MG TABLET 1000 MG PO ×2 (08:36→17:15)
[2024-09-30] MEDS: INSULIN ASPART 300 UNIT/3 ML PEN SUBQ ×4 (08:36→22:01)
[2024-09-30] MEDS: TRAMADOL HCL 50 MG TABLET 100 MG PO ×2 (08:36→17:15)
[2024-09-30] MEDS: ENSURE HP 237 ML LIQUID PO ×2 (08:36→22:00)
[2024-09-30] MEDS: PANTOPRAZOLE SODIUM 40 MG VIAL IV (08:47)
[2024-09-30] MEDS: DOCUSATE SODIUM 100 MG CAPSULE PO (08:47)
[2024-09-30] MEDS: GUAIFENESIN 600 MG TAB.ER.12H PO (08:47)
[2024-09-30] MEDS: LINEZOLID IN DEXTROSE 5% 600 MG/300 ML PIGGYBACK 300 MG IV ×2 (08:48→22:02)
[2024-09-30 11:44] LABS: Glucometer 240 mg/dL (74-106)
[2024-09-30] MEDS: GABAPENTIN 300 MG CAPSULE 600 MG PO ×3 (11:52→22:00)
--- NOTE | 2024-09-30 14:21 | SWNOTE1 ---
ISABELLA sent updates to Elisa at [facility]. Updates included PT/OT, progress notes, cultures, vitals, and labs.
[2024-09-30 16:42] LABS: Glucometer 161 mg/dL (74-106)
[2024-09-30 20:51] LABS: Glucometer 155 mg/dL (74-106)
[2024-09-30] MEDS: BENZONATATE 100 MG CAPSULE 200 MG PO (22:00)
[2024-09-30] MEDS: TAMSULOSIN HCL 0.4 MG CAPSULE PO (22:00)
[2024-09-30] MEDS: EZETIMIBE 10 MG TABLET PO (22:00)
[2024-09-30] MEDS: PROSTAT 15 GM PROTEIN/100 CAL 30 ML LIQUID PACKET PO (22:00)
[2024-09-30] MEDS: ATORVASTATIN CALCIUM 40 MG TABLET 80 MG PO (22:00)
[2024-10-01] VITALS (23 sets, daily range): BP systolic 94–133; BP diastolic 52–76; PULSE 60–84; TEMP 35.9–37.1; O2SAT 89–97
[2024-10-01] MEDS: BENZONATATE 100 MG CAPSULE 200 MG PO ×2 (05:09→21:03)
[2024-10-01] MEDS: PIPERACILLIN SODIUM/TAZOBACTAM 3.375 GM in 0.9 % SODIUM CHLORIDE 50 ML IV ×3 (05:09→21:02)
[2024-10-01] MEDS: GABAPENTIN 300 MG CAPSULE 600 MG PO ×3 (05:09→21:03)
[2024-10-01 05:21] LABS: Hematocrit 34.4 % (42.0-54.0); Hemoglobin 11.5 g/dL (14.0-18.0); Mean Corpuscular HGB Conc 33.4 g/dL (29.9-35.2); Mean Corpuscular Hemoglobin 30.6 pg (25.9-34.0); Mean Corpuscular Volume 91.5 fL (80.0-94.0); Mean Platelet Volume 12.4 fL (9.5-13.5); Platelet Count 204 10^3/uL (150-450); Red Blood Count 3.76 10^6/uL (4.70-6.10); Red Cell Distribution Width 13.5 % (11.0-15.0); White Blood Count 8.1 10^3/uL (4.0-11.0)
[2024-10-01] MEDS: IPRATROPIUM/ALBUTEROL SULFATE 3 ML AMPUL.NEB IH ×4 (05:31→23:18)
[2024-10-01 05:58] LABS: Alanine Aminotransferase 56 U/L (16-63); Albumin Globulin Ratio 0.5; Albumin Level 2.2 g/dL (3.4-5.0); Alkaline Phosphatase 47 U/L (46-116); Anion Gap 13.3; Aspartate Amino Transferase 72 U/L (15-37); BUN Creatinine Ratio 30.2; Bilirubin Total 0.2 mg/dL (0.2-1.0); Calcium 8.2 mg/dL (8.5-10.1); Carbon Dioxide 26.1 mmol/L (21.0-32.0); Chloride 106 mmol/L (98-107); Estimated GFR (African America >60 (>=60 mL/min/1.73m^2); Estimated GFR (Non-African Ame 57 (>=60 mL/min/1.73m^2); Globulin 4.4 g/dL; Glucose 132 mg/dL (74-106); Potassium 3.4 mmol/L (3.5-5.1); Sodium 142 mmol/L (136-145); Total Protein 6.6 g/dL (6.4-8.2)
[2024-10-01 06:01] LABS: Band Neutrophils Absolute 0.2 10^3/uL (0.0-0.3); Eosinophils Absolute Manual 0.08 10^3/uL (0.00-0.70); Lymphocytes Absolute Manual 2.43 10^3/uL (1.20-3.80); Monocytes Absolute Manual 0.56 10^3/uL (0.30-0.80); Segmented Neut Absolute Manual 4.86 10^3/uL (1.4-6.5)
[2024-10-01 07:40] LABS: Glucometer 120 mg/dL (74-106)
--- NOTE | 2024-10-01 08:00 | XR_ITS ---
The [address] [address] Patient Name: TAYLOR MCCLELLAN MRN: [id number] date: 1955 Sex: M Assigned Patient Location: [place] Current Patient Location: [place] Accession/Order Number: [id number] Exam Date: 10/01/2024 08:38 Report Date: 10/01/2024 09:45 At the request of: GENESIS REYNOLDS Procedure: XR acute abdomen series EXAMINATION: XR acute abdomen series HISTORY: abd pain COMPARISON: 09/30/2024 FINDINGS: LUNGS: Mild diffuse patchy parenchymal infiltrates with a central distribution. Peripheral intralobular septal thickening MEDIASTINUM: No abnormal widening. Median sternotomy wires BOWEL GAS PATTERN: Non-obstructed. FREE AIR: None. CALCIFICATIONS: None significant. BONES: No fracture or visible bone lesion. Moderate degenerative changes. Right L4-L5 transpedicular fusion. Moderate to severe bilateral hip osteoarthritis OTHER: Intensive vascular calcifications with stents XR/XR acute abdomen series IMPRESSION: Mild or early pulmonary edema Nonobstructive bowel gas pattern Electronically authenticated by: SARAI KIRKLAND Date: 10/01/2024 09:45
--- NOTE | 2024-10-01 08:05 | P.PN_ITS ---
Progress Note: Subjective Subjective Interval history: Still with significant cough throughout the evaluation, today complaining more of his chronic back pain. Exam Constitutional Vital Signs, click to edit/add: Last Vital Signs Temp 96.7 F L 10/01/24 05:00 Pulse 65 10/01/24 06:00 Resp 18 10/01/24 05:31 BP 126/71 10/01/24 05:00 Pulse Ox 90 L 10/01/24 05:31 O2 Del Method Nasal Cannula 10/01/24 05:31 O2 Flow Rate 3 10/01/24 05:31 FiO2 40 09/30/24 05:00 Documenting provider has reviewed patient's vital signs: yes Common normals: apparent distress (Significant cough throughout the evaluation) Chest Common normals: inspection of chest normal Respiratory Common normals: abnormal respiratory effort (Significant cough throughout the evaluation) Auscultation: rhonchi (Bilateral) Cardio Common normals: regular rate and regular rhythm GI Common normals: Normal to inspection, nondistended, normoactive bowel sounds present and soft to palpation; tender (Mild diffuse tenderness no rebound tenderness) Progress Note: Objective Labs Labs: Short CBC 10/01/24 Range/Units 04:50 WBC 8.1 (4.0-11.0) 10^3/uL Hgb 11.5 L (14.0-18.0) g/dL Hct 34.4 L (42.0-54.0) % Plt Count 204 (150-450) 10^3/uL BMP 10/01/24 04:50 Sodium 142 Potassium 3.4 L Chloride 106 Carbon Dioxide 26.1 BUN 38.0 H Creatinine 1.26 Glucose 132 H Calcium 8.2 L Liver Function 10/01/24 Range/Units 04:50 Total Bilirubin 0.2 (0.2-1.0) mg/dL AST 72 H (15-37) U/L ALT 56 (16-63) U/L Alkaline Phosphatase 47 (46-116) U/L Albumin 2.2 L (3.4-5.0) g/dL Progress Note: A&P Assessment and Plan (1) Pneumonia: Qualifiers: Laterality: bilateral Lung location: unspecified part of lung Pneumonia type: due to unspecified organism Qualified Code(s): J18.9 - Pneumonia, unspecified organism (2) Lumbar radiculopathy: (3) Hypertension: Qualifiers: Hypertension type: primary hypertension Qualified Code(s): I10 - Essential (primary) hypertension Plan Admit findings: Acute hypoxic respiratory failure requiring BiPAP ventilation, O2 sat of 81%, sinus tachycardia, respiratory distress, severe hypotension with a mean arterial pressure of 54, bandemia, acute kidney injury with baseline creatinine of 0.91 on his wellness exam, 2.24 on admission which is 246.1% above baseline resulting in stage II acute kidney injury, due to bilateral pneumonia resulting in severe sepsis with shock resulting in need for pressor agents (hlevophed and hydrocortison) with an acute exacerbation of COPD Severe sepsis with shock due to bilateral pneumonia due to MRSA is identified on blood culture resulting in acute exacerbation of COPD-sensitivities for the MRSA are pending, sputum culture also pending, patient is somewhat improved at least from an oxygenation standpoint, white blood cell count is stable, hypoxia slowly improving, still hypothermic last night with a temperature less than 96.8, blood pressure still low, not on his home blood pressure medications still, may consider repeat fluid bolus but blood pressure is improving this morning Multisystem organ dysfunction with altered mental status, altered mental status, acute kidney injury as outlined above, and acute respiratory failure requiring BiPAP ventilation and elevated BNP consistent with myocardial dysfunction- overall improved, except the BNP is slightly elevated again today no peripheral edema, blood pressure soft so would not diurese at this time, consider ech ocardiogram Acute kidney injury as outlined above-improved to baseline Iron deficiency anemia-improved today, continue to monitor Elevated BNP-elevated somewhat today,, see above Diabetes mellitus-stable Hypokalemia-supplement Elevated liver function test-likely related to the severe sepsis with shock as outlined above, LFTs slightly elevated today but not consistent progression Moderate protein calorie malnutrition-diet supplement Lumbar radiculopathy-maintain pain medications used prior Hypomagnesemia-continue supplementation Hypercholesterolemia continue with home medications GERD-changed to oral omeprazole today Hypertension-blood pressure still stable hold off on medications currently BPH-continue with home medications Tremor-continue with home medications Admission status: Patient was acute hypoxic respiratory failure requiring BiPAP ventilation, due to use bilateral pneumonia resulting in sepsis with multisystem organ dysfunction, medically necessary treatment will span 2 midnights. Inpatient status with MRSA sepsis Urinary Catheter Management Urinary Catheter Management Urethral: Cath placed during this visit: yes Urethral indwelling: Yes Reason for continuing: acute urinary retention Insertion date: 09/29/24 Insertion time: 00:45
[2024-10-01] MEDS: PROSTAT 15 GM PROTEIN/100 CAL 30 ML LIQUID PACKET PO ×2 (09:01→21:03)
[2024-10-01] MEDS: ASPIRIN 81 MG TABLET.DR PO (09:01)
[2024-10-01] MEDS: CLOPIDOGREL BISULFATE 75 MG TABLET PO (09:01)
[2024-10-01] MEDS: DOCUSATE SODIUM 100 MG CAPSULE PO (09:02)
[2024-10-01] MEDS: DIVALPROEX SODIUM 500 MG TABLET.DR PO ×2 (09:02→21:03)
[2024-10-01] MEDS: LINEZOLID IN DEXTROSE 5% 600 MG/300 ML PIGGYBACK 300 MG IV ×2 (09:03→21:02)
[2024-10-01] MEDS: ENSURE HP 237 ML LIQUID PO ×2 (09:03→21:03)
[2024-10-01] MEDS: MAGNESIUM OXIDE 400 MG TABLET PO ×2 (09:03→21:03)
[2024-10-01] MEDS: POTASSIUM CHLORIDE 10 MEQ ER TABLET PO ×2 (09:04→21:03)
[2024-10-01] MEDS: PRIMIDONE 50 MG TABLET PO (09:04)
[2024-10-01] MEDS: OMEPRAZOLE 40 MG CAPSULE.DR PO (09:04)
[2024-10-01] MEDS: TRAMADOL HCL 50 MG TABLET 100 MG PO (09:04)
--- NOTE | 2024-10-01 11:10 | REH.PTDLY ---
Physical Therapy Daily Note PT Daily Note/Assess Start: 10/01/24 11:01 Freq: Status: Active Protocol: Document 10/01/24 11:02 ALMITA (Rec: 10/01/24 11:10 ALMITA [id number]) Physical Therapy Daily Note/Assessment Time In 09:25 Time Out 09:44 Subjective Pt in bed upon arrival, just spilled his orange juice so sheets need changed. Pt agreeable to get out of bed. Complains of LB pain, rating as a 7/10 Therapeutic Exercise 10 Minutes (minutes) Therapeutic Exercise 1 Units Therapeutic Exercise Instructed in supine B LE exs 10x ea with AA needed Treatment with heel sides, SLR, abd slides. Tactile cues needed for QS and AP. B LE seated exs 8x ea with cues. Therapeutic Activity 7 Minutes (minutes) Therapeutic Activity 0 Units Therapeutic Activity Supine to sit transfers Mod A. Sit to stand transfers Comments with bed needing to be elevated Min A. Gait with RW 5 feet to chair with cues for turning and reaching back for safety. Chair alarm in place in chair. Total Therapy 17 Minutes Total Physical 1 Therapy Units Daily Note Summary Pt requires assistance with transfers due to weakness and LB pain. Pt will benefit from SNF stay at [facility] due to the assistance required for safety.
[2024-10-01 11:12] LABS: Glucometer 205 mg/dL (74-106)
[2024-10-01] MEDS: INSULIN ASPART 300 UNIT/3 ML PEN SUBQ (11:19)
--- NOTE | 2024-10-01 15:34 | CM.NOTE ---
2nd Important Message From Medicare discussed with pt, pt denies questions or concerns.
[2024-10-01 16:23] LABS: Glucometer 189 mg/dL (74-106)
[2024-10-01 20:31] LABS: Glucometer 120 mg/dL (74-106)
[2024-10-01] MEDS: TAMSULOSIN HCL 0.4 MG CAPSULE PO (21:03)
[2024-10-01] MEDS: ATORVASTATIN CALCIUM 40 MG TABLET 80 MG PO (21:03)
[2024-10-01] MEDS: EZETIMIBE 10 MG TABLET PO (21:03)
[2024-10-02] VITALS (11 sets, daily range): BP systolic 121–137; BP diastolic 65–72; PULSE 73–99; TEMP 36.4–37.2; O2SAT 89–91
[2024-10-02] MEDS: IPRATROPIUM/ALBUTEROL SULFATE 3 ML AMPUL.NEB IH (04:23)
[2024-10-02] MEDS: PIPERACILLIN SODIUM/TAZOBACTAM 3.375 GM in 0.9 % SODIUM CHLORIDE 50 ML IV (04:41)
[2024-10-02 05:29] LABS: Hemoglobin 11.4 g/dL (14.0-18.0); Mean Corpuscular HGB Conc 33.5 g/dL (29.9-35.2); Mean Corpuscular Hemoglobin 30.6 pg (25.9-34.0); Mean Corpuscular Volume 91.2 fL (80.0-94.0); Mean Platelet Volume 11.8 fL (9.5-13.5); Platelet Count 188 10^3/uL (150-450); Red Blood Count 3.73 10^6/uL (4.70-6.10); Red Cell Distribution Width 13.4 % (11.0-15.0); White Blood Count 6.2 10^3/uL (4.0-11.0)
--- NOTE | 2024-10-02 05:43 | PC.NURSE ---
Nurse notified about increased weight.
[2024-10-02] MEDS: GABAPENTIN 300 MG CAPSULE 600 MG PO (05:45)
[2024-10-02] MEDS: BENZONATATE 100 MG CAPSULE 200 MG PO (05:45)
[2024-10-02 06:50] LABS: Band Neutrophils Absolute 0.1 10^3/uL (0.0-0.3)
[2024-10-02 06:51] LABS: Lymphocytes Absolute Manual 1.86 10^3/uL (1.20-3.80); Segmented Neut Absolute Manual 3.53 10^3/uL (1.4-6.5)
[2024-10-02 06:52] LABS: Eosinophils Absolute Manual 0.06 10^3/uL (0.00-0.70); Monocytes Absolute Manual 0.68 10^3/uL (0.30-0.80)
[2024-10-02 07:08] LABS: Alanine Aminotransferase 44 U/L (16-63); Albumin Globulin Ratio 0.5; Alkaline Phosphatase 40 U/L (46-116); Anion Gap 7.1; Aspartate Amino Transferase 40 U/L (15-37); BUN Creatinine Ratio 19.4; Bilirubin Total 0.2 mg/dL (0.2-1.0); Calcium 8.1 mg/dL (8.5-10.1); Carbon Dioxide 29.7 mmol/L (21.0-32.0); Chloride 107 mmol/L (98-107); Estimated GFR (African America >60 (>=60 mL/min/1.73m^2); Estimated GFR (Non-African Ame >60 (>=60 mL/min/1.73m^2); Globulin 4.3 g/dL; Glucose 122 mg/dL (74-106); Potassium 3.8 mmol/L (3.5-5.1); Sodium 140 mmol/L (136-145); Total Protein 6.3 g/dL (6.4-8.2)
--- NOTE | 2024-10-02 07:38 | P.DS_ITS ---
DS: Providers Provider Date of admission: 09/29/24 01:28 Primary care physician: Norbert Jiang MD Consults: 09/29/24 07:09 Consult to Pharmacy Routine Consulting Provider: Reason for consultation: Please [place] me when Med Rec is Updated Has provider been notified: No Occupational Therapy Eval and Treat Routine Reason for consultation: Only if needed for Rehab Has provider been notified: No Physical Therapy Eval and Treat Routine Reason for consultation: Eval and Treat Has provider been notified: No 09/30/24 08:24 Consult to Elementary Tutor Routine Reason for consult:: Residential Other reason:: s/b ready for rehab by 10/02 DS: Diagnosis Discharge Diagnosis (1) Pneumonia: Qualifiers: Laterality: bilateral Lung location: unspecified part of lung Pneumonia type: due to unspecified organism Qualified Code(s): J18.9 - Pneumonia, unspecified organism (2) Lumbar radiculopathy: (3) Hypertension: Qualifiers: Hypertension type: primary hypertension Qualified Code(s): I10 - Essential (primary) hypertension Plan Admit findings: Acute hypoxic respiratory failure requiring BiPAP ventilation, O2 sat of 81%, sinus tachycardia, respiratory distress, severe hypotension with a mean arterial pressure of 54, bandemia, acute kidney injury with baseline creatinine of 0.91 on his wellness exam, 2.24 on admission which is 246.1% above baseline resulting in stage II acute kidney injury, due to bilateral pneumonia resulting in severe sepsis with shock resulting in need for pressor agents (hlevophed and hydrocortison) with an acute exacerbation of COPD Severe sepsis with shock due to bilateral pneumonia due to MRSA is identified on blood culture resulting in acute exacerbation of COPD-sensitivities for the MRSA are pending, sputum culture also pending, patient is somewhat improved at least from an oxygenation standpoint, white blood cell count is stable, hypoxia slowly improving, still hypothermic last night with a temperature less than 96.8, blood pressure still low, not on his home blood pressure medications still, may consider repeat fluid bolus but blood pressure is improving this morning Multisystem organ dysfunction with altered mental status, altered mental status, acute kidney injury as outlined above, and acute respiratory failure requiring BiPAP ventilation and elevated BNP consistent with myocardial dysfunction- overall improved, except the BNP is slightly elevated again today no peripheral edema, blood pressure soft so would not diurese at this time, consider echocardiogram Acute kidney injury as outlined above-improved to baseline Iron deficiency anemia-improved today, continue to monitor Elevated BNP-elevated somewhat today,, see above Diabetes mellitus-stable Hypokalemia-supplement Elevated liver function test-likely related to the severe sepsis with shock as outlined above, LFTs slightly elevated today but not consistent progression Moderate protein calorie malnutrition-diet supplement Lumbar radiculopathy-maintain pain medications used prior Hypomagnesemia-continue supplementation Hypercholesterolemia continue with home medications GERD-changed to oral omeprazole today Hypertension-blood pressure still stable hold off on medications currently BPH-continue with home medications Tremor-continue with home medications Admission status: Patient was acute hypoxic respiratory failure requiring BiPAP ventilation, due to use bilateral pneumonia resulting in sepsis with multisystem organ dysfunction, medically necessary treatment will span 2 midnights. Inpatient status with MRSA sepsis DS: Summary Hospital Course Hospital Course: Patient was admitted from an extended care facility with Acute hypoxic respiratory failure requiring BiPAP ventilation, O2 sat of 81%, sinus tachycardia, respiratory distress, severe hypotension with a mean arterial pressure of 54, bandemia, acute kidney injury with baseline creatinine of 0.91 on his wellness exam, 2.24 on admission which is 246.1% above baseline resulting in stage II acute kidney injury, due to bilateral MRSA pneumonia resulting in severe sepsis Due to MRSA with Positive Blood cultures for MRSA with shock res ulting in need for pressor agents (levophed and hydrocortison3) with an acute exacerbation of COPD. Patient was admitted to the medical surgical floor initially and then with his hypotension requiring Levophed and hydrocortisone he was transferred back to the intensive care unit, given multiple fluid boluses but needed to be gentle due to history of acute combined congestive heart failure, patient's white blood cell count did improve, the bandemia resolved. BNP gradually increased yes, unable to give diuretics and I did not feel it was impacting his respiratory status, unable to give diuretics secondary to low blood pressures yesterday, blood pressures improved today, BNP is better today but they does have some peripheral edema today, also still hypothermic as of yesterday due to the MRSA sepsis. With his overall improvement today temperature is returned to normal, blood pressure stabilized BNP improving, white blood cell count with left shift has resolved, he can be transferred back to the detention for continued rehabilitation, try to obtain at least the blood or sputum cultures today for sensitivities. This may impact discharge medications. Medications see list. Follow-up with care provider at his rehabilitation facility. Status at Discharge Overall status at discharge: patient is not back to baseline Time Spent with Patient Time attestation: Total time spent providing and/or coordinating discharge services: Time spent: greater than 30 minutes Exam Constitutional Vital Signs, click to edit/add: Last Vital Signs Temp 97.6 F 10/02/24 04:38 Pulse 81 10/02/24 06:00 Resp 19 10/02/24 04:38 BP 135/72 10/02/24 04:38 Pulse Ox 90 L 10/02/24 04:38 O2 Del Method Nasal Cannula 10/02/24 04:38 O2 Flow Rate 3 10/02/24 04:38 FiO2 40 09/30/24 05:00 Documenting provider has reviewed patient's vital signs: yes Common normals: apparent distress (Cough improved, no dyspnea) Chest Common normals: inspection of chest normal Respiratory Common normals: abnormal respiratory effort (Cough much improved) Auscultation: rhonchi (Bilateral but much improved) Cardio Common normals: regular rate and regular rhythm GI Common normals: Normal to inspection, nondistended, normoactive bowel sounds present and soft to palpation; tender (Mild diffuse tenderness no rebound tenderness) Extremity Common normals: abnormal to inspection (1+ edema this morning) DS: Data Data Completed and Pending Labs on day of discharge: Labs from last 24 hours 10/02/24 10/01/24 10/01/24 04:57 20:29 16:22 WBC 6.2 RBC 3.73 L Hgb 11.4 L Hct 34.0 L MCV 91.2 MCH 30.6 MCHC 33.5 RDW 13.4 Plt Count 188 MPV 11.8 Seg Neuts % (Manual) 57.0 Band Neutrophils % 1.0 Lymphocytes % (Manual) 30.0 Monocytes % (Manual) 11.0 Eosinophils % (Manual) 1.0 Basophils % (Manual) 0.0 L Neutrophils # (Manual) 3.53 Band Neutrophils # 0.1 Lymphocytes # (Manual) 1.86 Monocytes # (Manual) 0.68 Eosinophils # (Manual) 0.06 Basophils # (Manual) 0.00 Sodium 140 Potassium 3.8 Chloride 107 Carbon Dioxide 29.7 Anion Gap 7.1 BUN 21.0 H Creatinine 1.08 Est GFR ( Amer) >60 Est GFR (Non-Af Amer) >60 BUN/Creatinine Ratio 19.4 Glucose 122 H Calcium 8.1 L Total Bilirubin 0.2 AST 40 H ALT 44 Alkaline Phosphatase 40 L NT-Pro-B Natriuret Pep 1603.0 H* Total Protein 6.3 L Albumin 2.0 L Globulin 4.3 Albumin/Globulin Ratio 0.5 POC Glucose 120 H 189 H 10/01/24 10/01/24 11:10 07:38 WBC RBC Hgb Hct MCV MCH MCHC RDW Plt Count MPV Seg Neuts % (Manual) Band Neutrophils % Lymphocytes % (Manual) Monocytes % (Manual) Eosinophils % (Manual) Basophils % (Manual) Neutrophils # (Manual) Band Neutrophils # Lymphocytes # (Manual) Monocytes # (Manual) Eosinophils # (Manual) Basophils # (Manual) Sodium Potassium Chloride Carbon Dioxide Anion Gap BUN Creatinine Est GFR ( Amer) Est GFR (Non-Af Amer) BUN/Creatinine Ratio Glucose Calcium Total Bilirubin AST ALT Alkaline Phosphatase NT-Pro-B Natriuret Pep Total Protein Albumin Globulin Albumin/Globulin Ratio POC Glucose 205 H 120 H Preliminary micro results at discharge 09/29/24 09:01 Bacterial ID and Susceptibility - Preliminary Bld Spc Aerobic Bld Cul Bottle 09/29/24 09:07 Blood Culture Result 2 - Preliminary Blood - Left Hand NO GROWTH AT 36-48 HOURS. FINAL TO FOLLOW. 09/29/24 09:01 Blood Culture Result 1 - Preliminary Blood - Right Hand 09/29/24 01:16 Lower Respiratory Culture - Preliminary Sputum - Expectorated Sputum Staphylococcus aureus 09/29/24 00:35 Blood Culture Result 2 - Preliminary Blood NO GROWTH AT 36-48 HOURS. FINAL TO FOLLOW. 09/28/24 21:00 Blood Culture Result 1 - Preliminary Blood NO GROWTH AT 36-48 HOURS. FINAL TO FOLLOW. Discharge Plan Discharge Disposition: Xfer SNF Discharge Medications: New omeprazole 40 mg Capsule,Delayed Release(Dr/Ec) 40 mg PO QD Qty: 30 11RF tramadol 50 mg Tablet 100 mg PO Q6H PRN (Reason: pain) Qty: 120 0RF linezolid in dextrose 5% 600 mg/300 mL Piggyback 600 mg IV Q12H Qty: 3000 0RF Continued clopidogrel 75 mg tablet 75 mg PO QDAY celecoxib 200 mg Capsule 200 mg PO DAILY Qty: 30 11RF docusate sodium [Col-Rite] 100 mg capsule 100 mg PO DAILY PRN (Reason: constipation) ipratropium bromide 0.02 % solution 2.5 ml inhalation QID PRN (Reason: shortness of breath or wheezing) guaifenesin [Mucinex] 600 mg tablet extended release 12hr 600 mg PO BID Rx Instructions: 09/25/24-10/09/24 ondansetron 4 mg tablet,disintegrating 4 mg PO Q6H PRN (Reason: nausea and vomiting) mirtazapine 45 mg tablet 45 mg PO .QHS ezetimibe 10 mg tablet 10 mg PO .qhs Patient Comments: at bedtime cyclobenzaprine 10 mg tablet 10 mg PO TID divalproex 500 mg tablet,delayed release (DR/EC) 500 mg PO BID famotidine 40 mg tablet 40 mg PO DAILY tamsulosin 0.4 mg capsule 0.4 mg PO .qhs Patient Comments: bedtime gabapentin 600 mg tablet 600 mg PO QID multivitamin with folic acid [High Potency Multivitamin] 1 tab PO DAILY acetaminophen 500 mg capsule 500 mg PO TID atorvastatin 80 mg tablet 80 mg PO .qhs primidone 50 mg tablet 50 mg PO DAILY aspirin 81 mg tablet,delayed release (DR/EC) 81 mg PO DAILY triamcinolone acetonide 0.1 % cream 1 applic TOPICAL BID PRN (Reason: rash) losartan 50 mg tablet 50 mg PO DAILY nicotine 21 mg/24 hr patch 24 hour 1 patch transdermal Q24H tramadol 100 mg tablet 100 mg PO Q6H MDD 4 PRN (Reason: pain) Qty: 120 0RF albuterol sulfate 90 mcg/actuation Hfa Aerosol Inhaler 2 puff inhalation Q6H Qty: 8.5 11RF Discontinued carvedilol [Coreg] 12.5 mg tablet 12.5 mg PO BIDWM Rx Instructions: must administer with a meal/food docusate sodium [Colace] 100 mg capsule 100 mg PO .qod Print Language: Portuguese Second Worker/Systems Development Manager Instructions: Discharge back to [facility] skilled Forms: Portal Instructions
[2024-10-02] MEDS: POTASSIUM CHLORIDE 10 MEQ ER TABLET PO (08:36)
[2024-10-02] MEDS: DIVALPROEX SODIUM 500 MG TABLET.DR PO (08:36)
[2024-10-02] MEDS: LINEZOLID IN DEXTROSE 5% 600 MG/300 ML PIGGYBACK 300 MG IV (08:36)
[2024-10-02] MEDS: OMEPRAZOLE 40 MG CAPSULE.DR PO (08:36)
[2024-10-02] MEDS: DOCUSATE SODIUM 100 MG CAPSULE PO (08:36)
[2024-10-02] MEDS: MAGNESIUM OXIDE 400 MG TABLET PO (08:36)
[2024-10-02] MEDS: ASPIRIN 81 MG TABLET.DR PO (08:36)
[2024-10-02] MEDS: CLOPIDOGREL BISULFATE 75 MG TABLET PO (08:36)
[2024-10-02] MEDS: BUMETANIDE 1 MG/4 ML VIAL IVP (08:36)
[2024-10-02] MEDS: GUAIFENESIN 600 MG TAB.ER.12H PO (08:37)
[2024-10-02] MEDS: PRIMIDONE 50 MG TABLET PO (08:37)
[2024-10-02] MEDS: ENSURE HP 237 ML LIQUID PO (08:37)
--- NOTE | 2024-10-02 08:43 | SWNOTE1 ---
ISABELLA received message from doctor and pt will need IV's at [facility]. ISABELLA reached out to Elisa at [facility] and let her know the IV and that it will be peripheral line. Elisa voiced to ISABELLA that they can do that. ISABELLA let doctor know. ISABELLA to set up transport for discharge.
--- NOTE | 2024-10-02 09:38 | SWNOTE1 ---
ISABELLA sent dc med rec, labs, peripheral line information, and vitals to Elisa at [facility]. ISABELLA set up trips for 11:00. ISABELLA notified [facility], nurse, and pt's son of dc time. Pt is returning to [facility] skilled.
--- NOTE | 2024-10-02 11:42 | PC.NURSE ---
patient was discharged with peripheral IV per Dr Craig orders
--- NOTE | 2024-10-05 11:26 | CM.NOTE ---
Faxed recent culture results to [facility] and Dr. Jiang.
== END 2024-10-02 11:42 | DRG 871 ==
LOC: ER 09-29 01:30 → ICU 09-29 06:05 → MS 09-29 06:05 → ICU 09-30 08:19 → MS 09-30 13:42
PROVIDERS: Registered Nurse; Admitting Provider Family Medicine; Emergency Provider Emergency Medicine; PCP Family Medicine; Visit Provider Family Medicine
DX: A41.02 Sepsis due to Methicillin resistant Staphylococcus aureus (principal); J15.212 Pneumonia due to Methicillin resistant Staphylococcus aureus; J96.01 Acute respiratory failure with hypoxia; R65.21 Severe sepsis with septic shock; N17.9 Acute kidney failure, unspecified; J44.0 Chronic obstructive pulmonary disease with (acute) lower respiratory infection; J44.1 Chronic obstructive pulmonary disease with (acute) exacerbation; E44.0 Moderate protein-calorie malnutrition; I45.2 Bifascicular block; E87.20 Acidosis, unspecified; I13.0 Hypertensive heart and chronic kidney disease with heart failure and stage 1 through stage 4 chronic kidney disease, or unspecified chronic kidney disease; Z66 Do not resuscitate; D50.9 Iron deficiency anemia, unspecified; E11.22 Type 2 diabetes mellitus with diabetic chronic kidney disease; E83.42 Hypomagnesemia; E87.6 Hypokalemia; E78.00 Pure hypercholesterolemia, unspecified; I50.9 Heart failure, unspecified; K21.9 Gastro-esophageal reflux disease without esophagitis; M54.16 Radiculopathy, lumbar region; N40.0 Benign prostatic hyperplasia without lower urinary tract symptoms; N18.9 Chronic kidney disease, unspecified; R25.1 Tremor, unspecified; R68.0 Hypothermia, not associated with low environmental temperature; R41.841 Cognitive communication deficit; Z68.32 Body mass index [BMI] 32.0-32.9, adult; Z79.02 Long term (current) use of antithrombotics/antiplatelets; Z79.82 Long term (current) use of aspirin; Z79.899 Other long term (current) drug therapy; Z88.8 Allergy status to other drugs, medicaments and biological substances; Z95.1 Presence of aortocoronary bypass graft; Z95.5 Presence of coronary angioplasty implant and graft; Z87.891 Personal history of nicotine dependence; Z11.52 Encounter for screening for COVID-19; Z86.16 Personal history of COVID-19
CPT/HCPCS: 31720; 36415; 51702; 70450; 71045; 71250; 72125; 74022; 80053; 81001; 82800; 82948; 83605; 83735; 83880; 84484; 85007; 85025; 85027; 87040; 87070; 87150; 87186; 87205; 87420; 87804; 87811; 89220; 93005; 93308; 94640; 94660; 94667; 94668; 94761; 96365; 96375; 97110; 97161; 97165; 97530; 99285; J0131; J0456; J0696; J1644; J1720; J1940; J2020; J2543; J2919; J3475

== ENCOUNTER 2025-01-06 09:37 | Outpatient (OUT) | payer MEDICARE, BC, SELFPAY ==
--- NOTE | 2025-01-06 | XR_ITS ---
The [address] [address] Patient Name: TAYLOR MCCLELLAN MRN: [id number] date: 1955 Sex: M Assigned Patient Location: LAB Current Patient Location: LAB Accession/Order Number: [id number] Exam Date: 01/06/2025 11:09 Report Date: 01/06/2025 11:09 At the request of: KAIT VELAZQUEZ Procedure: XR chest 2V Chest 2 views CLINICAL HISTORY: PRE OP EVAL Z01.812, HTN I10 COMPARISON: None FINDINGS: Sternotomy wires are noted. Cardiomegaly with vascular congestion. No consolidation pneumothorax pleural effusion or free air. XR/XR chest 2V IMPRESSION: CHF FINDINGS. NO CONSOLIDATION TO SUGGEST PNEUMONIA. Impression dictated by: Kayode Dempsey Jr., D.OElizabeth 01/06/2025 11:09 AM Dictation Location: [place] [address] Electronically authenticated by: [id number] Y Date: 01/06/2025 11:09
--- NOTE | 2025-01-06 09:55 | ECG_ITS ---
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 Measurements Intervals Varney Rate: 92 P: 33 CO: 234 QRS: -63 QRSD: 148 T: 57 QT: 388 QTc: 480 Interpretive Statements SINUS RHYTHM WITH FIRST DEGREE AV BLOCK RIGHT BUNDLE BRANCH BLOCK [120+ ms QRS DURATION, UPRIGHT V1, 40+ ms S IN I/aVL/V4/V5/V6] LEFT ANTERIOR FASCICULAR BLOCK [QRS AXIS <= -45, QR IN I, RS IN II] Bifascicular block Compared to ECG 09/28/2024 21:00:15 No significant changes Electronically Signed On 01-06-2025 21:08:52 EDT by DORA MOFFETT M.D.
[2025-01-06 10:02] LABS: Hematocrit 38.5 % (42.0-54.0); Hemoglobin 13.3 g/dL (14.0-18.0); Lymphocytes Percent Auto 25.2 % (20.5-60.0); Mean Corpuscular HGB Conc 34.5 g/dL (29.9-35.2); Mean Corpuscular Hemoglobin 31.2 pg (25.9-34.0); Mean Corpuscular Volume 90.4 fL (80.0-94.0); Mean Platelet Volume 11.3 fL (9.5-13.5); Neutrophils Percent Auto 64.9 % (43.0-75.0); Platelet Count 240 10^3/uL (150-450); Red Blood Count 4.26 10^6/uL (4.70-6.10); Red Cell Distribution Width 13.5 % (11.0-15.0)
[2025-01-06 10:03] LABS: Basophils Absolute Auto 0.1 10^3/uL (0.0-0.1); Basophils Percent Auto 0.5 % (0.2-2.0); Eosinophils Absolute Auto 0.2 10^3/uL (0.0-0.7); Eosinophils Percent Auto 1.5 % (0.9-7.0); Immature Granulocytes Abs Auto 0.03 10^3/uL (0.00-0.03); Immature Granulocytes Pct Auto 0.3 % (0.0-0.5); Lymphocytes Absolute Auto 2.8 10^3/uL (1.2-3.8); Monocytes Absolute Auto 0.8 10^3/uL (0.3-0.8); Monocytes Percent Auto 7.6 % (1.7-12.0); Neutrophils Absolute Auto 7.2 10^3/uL (1.4-6.5)
[2025-01-06 10:12] LABS: Anion Gap 15.4; BUN Creatinine Ratio 18.1; Calcium 9.1 mg/dL (8.5-10.1); Carbon Dioxide 25.9 mmol/L (21.0-32.0); Chloride 106 mmol/L (98-107); Estimated Average Glucose 140 mg/dL; Estimated GFR (African America >60 (>=60 mL/min/1.73m^2); Estimated GFR (Non-African Ame 51 (>=60 mL/min/1.73m^2); Glucose 121 mg/dL (74-106); Glycohemoglobin A1C 6.5 % (4.5-6.2); Potassium 4.3 mmol/L (3.5-5.1); Sodium 143 mmol/L (136-145)
[2025-01-06 10:18] LABS: INR 1.03; Partial Thromboplastin Time 27.8 sec (22.3-36.2); Prothrombin Time 10.9 sec (9.0-11.6)
== END 2025-01-06 09:38 | disposition home or self-care (01) ==
PROVIDERS: PCP Family Medicine; Visit Provider Physician Assistant
DX: Z01.810 Encounter for preprocedural cardiovascular examination (principal); Z01.812 Encounter for preprocedural laboratory examination; M48.07 Spinal stenosis, lumbosacral region; I10 Essential (primary) hypertension; E11.9 Type 2 diabetes mellitus without complications; Z79.01 Long term (current) use of anticoagulants
CPT/HCPCS: 36415; 71046; 80048; 83036; 85025; 85610; 85730; 87081; 93005

== ENCOUNTER 2025-01-31 20:06 | Emergency (ER) | payer MEDICARE, BC, SELFPAY ==
--- OUTSIDE RECORDS SUMMARY | 2024-05-20 09:00 | XMS_ITS ---
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 Name Role Phone Vianey Zaldivar Primary Care Provider UnavailWyatt Vidal Unavailable [phone] Encounters Encounter Location Date Provider [facility] [address] [place] [id number] 05/20/2024 Wyatt Wasserman Plan Of Treatment No Information Progress Notes * Rashi MCCLELLANDOB:1955 (69 yo M)Acc No.[id number]:05/20/2024 Patient: Hai Rashi ESTRADA Provider: Hai Wasserman DPM :1955 A ge:68 Y S ex:Male Date:05/20/2024 Phone: Address:[facility] Pcp:Vianey Zaldivar Subjective: * Chief Complaints: * * Medical History: Objective: * Vitals: Assessment: Plan: * Treatment: * Images: * Electronic signature of [place] in LYDIA Wasserman on 01/31/2025 at 08:25 PM EDT Sign off status: Pending * Provider: Hai Wasserman DPM Date: 05/20/2024 Generated for Luis robbins/Agapito/eTabrahan on: 01/31/2025 08:25 PM EDT
--- OUTSIDE RECORDS SUMMARY | 2024-08-12 10:45 | XMS_ITS ---
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 Name Role Phone Vianey Zaldivar Primary Care Provider UnavailWyatt Vidal Unavailable [phone] Encounters Encounter Location Date Provider Diagnosis [facility] [address] [place] [id number] 08/12/2024 Wyatt Wasserman Plan Of Treatment No Information Progress Notes * Rashi MCCLELLANDOB:1955 (69 yo M)Acc No.[id number]:08/12/2024 Patient: Hai Rashi ESTRADA Provider: Hai Wasserman DPM :1955 A ge:68 Y S ex:Male Date:08/12/2024 Phone: Address:[facility] Pcp:Vianey Zaldivar Subjective: * Chief Complaints: * * Medical History: Objective: * Vitals: Assessment: Plan: * Treatment: * Images: * Electronic signature of [place] in LYDIA Wasserman on 01/31/2025 at 08:26 PM EDT Sign off status: Pending * Provider: Hai Wasserman DPM Date: 1 10/13/2023 Generated for Luis robbins/Agapito/eTranfranciscoitting on: 01/31/2025 08:26 PM EDT
--- OUTSIDE RECORDS SUMMARY | 2024-11-11 10:45 | XMS_ITS ---
Author Organization [facility] Address [address] [place] [address] [place] [address] Care Team Providers Care Brake Operator Heavy Duty Name Role Phone Vianey Zaldivar Primary Care Provider UnavailWyatt Vidal Unavailable [phone] Encounters Encounter Location Date Provider Diagnosis [facility] [address] [place] [id number] 11/11/2024 Wyatt Wasserman Plan Of Treatment No Information Progress Notes * Rashi MCCLELLANDOB:1955 (69 yo M)Acc No.[id number]:11/11/2024 Patient: Hai Rashi ESTRADA Provider: Hai Wasserman DPM :1955 A ge:69 Y S ex:Male Date:11/11/2024 Phone: Address:[facility] Pcp:Vianey Zaldivar Subjective: * Chief Complaints: * * Medical History: Objective: * Vitals: Assessment: Plan: * Treatment: * Images: * Electronic signature of [place] in LYDIA Wasserman on 01/31/2025 at 08:24 PM EDT Sign off status: Pending * Provider: Hai Wasserman DPM Date: 11/11/2024 Generated for Luis robbins/Agapito/eTtayloritting on: 01/31/2025 08:24 PM EDT
--- OUTSIDE RECORDS SUMMARY | 2025-01-11 11:38 | XMS_ITS ---
Author Organization [facility] Address [address] [place] [address] Care Team Providers Care Senior Payroll Manager Name Role Phone Nathaniel Jianglas Primary Care Provider Ravi nelda TomBraydon Annettechanda Liu [phone] REASON FOR VISIT QUESTIONS Encounters Encounter Location Date Provider Diagnosis [facility] [address] [place] [address] 01/11/2025 Hernandez Tom Clair Plan Of Treatment Next Appt Details Provider Name:[facility]ern[facility], 02/02/2025 11:00:00 AM, [address] [place] [address], [id number], Provider Name:[facility]ern[facility], 03/26/2025 09:50:00 AM, [address] [facility], [place], [address], Progress Notes * TAYLOR MCCLELLAN SRDOB:[birth year] (69 yo M)Acc No.[id number]:01/11/2025 Patient: TAYLOR CASTELLANOS SR :1955 A ge:69 Y S ex:Male Address:[address] [place] [address], [address] * true * Date: Generated for Printi ng/Faxing/eTransmitting on: 0 01/31/2025 08:26 PM EDT
--- OUTSIDE RECORDS SUMMARY | 2025-01-25 04:47 | XMS_ITS ---
Author Organization The [facility] [place] Address [address] [place] [address] Care Team Providers Care Heading And Priming Operator Name Role Phone Nathaniel Jiang Primary Care Provider REASON FOR VISIT surgery Encounters Encounter Location Date Provider Diagnosis [address] [address] 01/25/2025 Nathaniel Jiang Plan Of Treatment No Information Progress Notes * Rashi MCCLELLAN SrDOB:[birth year] (69 yo M)Acc No.[id number]:01/25/2025 Patient: Hai Rashi ESTRADA Sr :1955 A ge:69 Y S ex:Male Address:[address] [place], [address] * true * Date: Generated for Printi ng/Faxing/eTransmitting on: 0 01/31/2025 08:25 PM EDT
--- OUTSIDE RECORDS SUMMARY | 2025-01-26 05:22 | XMS_ITS ---
Author Organization [facility] [place] Address [address] [place] [address] Care Team Providers Care Engraver Tire Mold Name Role Phone Nathaniel Jiang Primary Care Provider [phone] REASON FOR VISIT Stop ASA? Encounters Encounter Location Date Provider Diagnosis [facility] [address] [place] [address] 01/26/2025 Nathaniel Jiang Plan Of Treatment No Information Progress Notes * Rashi MCCLELLAN SrDOB:[birth year] (69 yo M)Acc No.[id number]:01/26/2025 Patient: Hai Rashi ESTRADA Sr :1955 A ge:69 Y S ex:Male Address:[address] [place], [address] * true * Date: Generated for Printi ng/Faxing/eTransmitting on: 0 01/31/2025 08:24 PM EDT
--- OUTSIDE RECORDS SUMMARY | 2025-01-26 09:01 | XMS_ITS ---
Author Organization [facility] [place] Address [address] [place] [address] Care Team Providers Care Border Measurer Name Role Phone Nathaniel Jiang Primary Care Provider REASON FOR VISIT refill Medications Medication SIG (Take, Route, Fr equency, Duration) Notes Start Date End Date Status Gabapentin 600 mg TAKE ONE TABLET BY M OUTH FOUR TIMES A DAY FOR 30 DAYS for 30 A ctive Encounters Encounter Location Date Provider Diagnosis [facility] [address] [place] [address] 01/26/2025 Nathaniel Jiang Plan Of Treatment Medication Medication Name Sig Start Date Stop Date Notes Gabapentin 600 mg TAKE ONE TABLET BY M OUTH FOUR TIMES A DAY FOR 30 DAYS for 30 Progress Notes * Rashi MCCLELLAN SrDOB:[birth year] (69 yo M)Acc No.[id number]:01/26/2025 Patient: Hai PRASADJANELLETariq Rashi Meehan Sr :1955 A ge:69 Y S ex:Male Address:[address] [place], [address] * Refills Refill Gabapentin Tablet, 600 mg, 120 Each, TAKE ONE TABLET BY MOUTH FOUR TIMES A DAY FOR 30 DAYS, 30, Refills=11 * true * Date: Generated for Printi ng/Faxing/eTransmitting on: 0 01/31/2025 08:25 PM EDT
--- OUTSIDE RECORDS SUMMARY | 2025-01-29 07:30 | XMS_ITS ---
Author Organization [facility] Address [address] [place] [address] Care Team Providers Care Teacher Hearing Impaired Name Role Phone FarooqjungNorbert Primary Care Provider Harshaalissa Hernandez Robin Unavailable [phone] REASON FOR VISIT L4-5 HARDWARE REMOVAL, L4-S1 DECOMPRESSION AND FUSION WITH EXTENSION TO S1, L5- S1 TLIF Medications Medication SIG (Take, Route, Fr equency, Duration) Notes Start Date End Date Status rOPINIRole Active amLODIPine Active gabapentin Active Hibiclens 4% 1 armando applied topica lly once for 5 days 01/11/2025 Active Aspir 81 Active clopidogrel Active simvastatin Active doxepin Active divalproex sodium Ac tive traZODone Active Encounters Encounter Location Date Provider Diagnosis [facility] [address] [place] [address] 01/29/2025 Hernandez Bryson Spinal stenosis, lumbosacral region M48.07 ; Arthrodesis status Z98.1 ; Degeneration of intervertebral disc of lumbosacral region with discogenic back pain and lower extremity pain M51.372 and Radiculopathy, lumbosacral region M54.17 Assessments Encounter Date Diagnosis (ICD Code) Assessment Notes Treatment Notes Treatment Clinical Notes Section Notes 01/29/2025 Spinal stenosis, lumbosacral region (ICD-10 - M48.07) 01/29/2025 Arthrodesis status (ICD-10 - Z98.1) 01/29/2025 Degeneration of intervertebral disc of lumbosacral region with discogenic back pain and lower extremity pain (ICD-10 - M51.372) 01/29/2025 Radiculopathy, lumbosacral region (ICD-10 - M54.17) Plan Of Treatment Next Appt Details Follow Up: post op, Reason: Provider Name:Hernandez Little, 02/02/2025 11:00:00 AM, [address] [place], [place], [id number], Provider Name:Hernandez Little, 03/26/2025 09:50:00 AM, [address] [facility], [place], [address], Progress Notes * TAYLOR MCCLELLAN SRDOB:[birth year] (69 yo M)Acc No.[id number]:01/29/2025 Patient: Hai DAVIDTariqTAYLOR SR Provider: Domo Oates MD, PhD :1955 A ge:69 Y S ex:Male Date:01/29/2025 Address:[address] [place], [place] [id number] Pcp:Norbert Jiang Subjective: * Chief Complaints: * 1 . L4-5 HARDWARE REMOVAL, L4-S1 DECOMPRESSION AND FUSION WITH EXTENSION TO S1, L5-S1 TLIF. * Medical History: * Medications: T aking Aspir 81 , Taking simvastatin , Taking clopidogrel , Taking divalproex sodium , Taking doxepin , Taking traZODone , Taking rOPINIRole , Taking gabapentin , Taking amLODIPine , Taking Hibiclens 4% soap 1 armando applied topically once Objective: * Vitals: Assessment: * Assessment: 1. S leslie stenosis, lumbosacral region - M48.07 (Primary) 2 . A rthrodesis status - Z98.1 3 . D egeneration of intervertebral disc of lumbosacral region with discogenic back pain and lower extremity pain - M51.372 4 . R adiculopathy, lumbosacral region - M54.17 Plan: * Treatment: * Follow Up: p ost op Forms: * Images: * Electronic signature of Allie Bryson MD, PHD on 01/31/2025 at 08:24 PM EDT Sign off status: Pending * Provider: Domo Oates MD, PhD Date: 0 01/29/2025 Generated for Luis robbins/Agapito/Natalia on: 0 01/31/2025 08:24 PM EDT
--- OUTSIDE RECORDS SUMMARY | 2025-01-29 07:55 | XMS_ITS ---
Author Organization [facility] Address [address] [place] [address] Care Team Providers Care Education Administrative Assistant Name Role Phone Farooqjung Norbert Primary Care Provider Ravi nelda Bryson Doughilary Unavailable [phone] Steve Dennis [phone] Encounters Encounter Location Date Provider Diagnosis [facility] [address] [place] [address] 01/29/2025 Steve Dennis Plan Of Treatment Next Appt Details Provider Name:Hernandez [facility], 02/02/2025 11:00:00 AM, [address] [place], [place], [id number], Provider Name:Hernandez [facility], 03/26/2025 09:50:00 AM, [address] [facility], [address], [place], [address], Progress Notes * TAYLOR MCCLELLAN SRDOB:[birth year] (69 yo M)Acc No.[id number]:01/29/2025 Patient: Hai TAYLOR ESTRADA SR :1955 A ge:69 Y S ex:Male Address:[address] [place] [address], [id number] Subjective: * Chief Complaints: * * Medical History: * Surgical History: * Hospitalization/Major Diagno stic Procedure: * Medications: Objective: * Vitals: * Physical Examination: Assessment: Plan: * Treatment: * Procedure Codes: * true * Date: Generated for Luis robbins/Agapito/Natalia on: 0 01/31/2025 08:25 PM EDT
[2025-01-31 20:09] VITALS: BP 155/78; PULSE 84; TEMP 36.3; O2SAT 94; BMI 31.4
--- NOTE | 2025-01-31 20:12 | ED.GENADUL1 ---
HPI HPI - General Adult General Chief complaint: Extremity Problem, Nontraumatic Stated complaint: KNEE PAIN Time Seen by Provider: 01/31/25 20:10 Source: patient Mode of arrival: ambulance History of Present Illness HPI narrative: 69-year-old male to the emergency department chief complaint of pain in his right knee. Patient was ambulating near his bed attempting to get on the bed when he felt a pop in his knee and then felt extreme pain. He does not report any deformity that occurred to the knee. This is not happened before. He denies any numbness, weakness, tingling. He was otherwise at his baseline health. He did not fall or injure anything else. Related Data Home Medications ?Medication ?Instructions ?Recorded ?Confirmed clopidogrel 75 mg tablet 75 mg PO QDAY 03/14/23 09/28/24 mirtazapine 45 mg tablet 45 mg PO .QHS 11/05/23 09/28/24 cyclobenzaprine 10 mg tablet 10 mg PO TID 04/14/24 09/28/24 divalproex 500 mg tablet,delayed 500 mg PO BID 04/14/24 09/29/24 release ezetimibe 10 mg tablet 10 mg PO .qhs 04/14/24 09/28/24 famotidine 40 mg tablet 40 mg PO DAILY 04/14/24 09/28/24 gabapentin 600 mg tablet 600 mg PO QID 04/14/24 09/28/24 tamsulosin 0.4 mg capsule 0.4 mg PO .qhs 04/14/24 09/28/24 acetaminophen 500 mg capsule 500 mg PO TID 05/03/24 09/28/24 multivitamin with folic acid 1 tab PO DAILY 05/03/24 09/28/24 aspirin 81 mg tablet,delayed 81 mg PO DAILY 05/21/24 09/28/24 release atorvastatin 80 mg tablet 80 mg PO .qhs 05/21/24 09/29/24 primidone 50 mg tablet 50 mg PO DAILY 05/21/24 09/28/24 triamcinolone acetonide 0.1 % 1 applic topical BID PRN rash 05/21/24 09/28/24 topical cream losartan 50 mg tablet 50 mg PO DAILY 09/10/24 09/28/24 nicotine 21 mg/24 hr daily 1 patch transdermal Q24H 09/10/24 09/28/24 transdermal patch docusate sodium 100 mg capsule 100 mg PO DAILY PRN constipation 09/28/24 09/29/24 (Col-Rite) guaifenesin 600 mg tablet, 600 mg PO BID 09/28/24 09/29/24 extended release 12 hr (Mucinex) ipratropium bromide 0.02 % 2.5 ml inhalation QID PRN 09/28/24 09/28/24 solution for inhalation shortness of breath or wheezing ondansetron 4 mg disintegrating 4 mg PO Q6H PRN nausea and vomiting 09/29/24 09/29/24 tablet Previous Rx's ?Medication ?Instructions ?Recorded celecoxib 200 mg capsule 200 mg PO DAILY #30 caps 03/15/23 albuterol sulfate 90 mcg/actuation 2 puff inhalation Q6H #8.5 grams 09/13/24 aerosol inhaler tramadol 100 mg tablet 100 mg PO Q6H PRN pain #120 tabs 09/13/24 linezolid in 5% dextrose in water 600 mg IV Q12H #3,000 mL 10/02/24 600 mg/300 mL intravenous piggyback omeprazole 40 mg capsule,delayed 40 mg PO QD #30 caps 10/02/24 release tramadol 50 mg tablet 100 mg (2 x 50 mg) PO Q6H PRN pain 10/02/24 #120 tabs Allergies Allergy/AdvReac Type Severity Reaction Status Date / Time amitriptyline Allergy Unknown Verified 09/28/24 21:17 citalopram Allergy Unknown Verified 09/28/24 21:17 fentanyl Allergy Unknown Verified 09/28/24 21:17 simvastatin (From Zocor) Allergy Unknown Verified 09/28/24 21:17 succinylcholine Allergy Unknown Verified 09/28/24 21:17 venlafaxine (From Effexor) Allergy Unknown Verified 09/28/24 21:17 Opioid HPI Opioid Management Most Recent Opioid Data: Last Pain Scale 0 10/01/24, 10:24 Last Pain Intensity 0 09/12/24, 10:23 Last ORT Total Score 0 09/29/24, 01:35 Last ORT Risk Category Low Risk 09/29/24, 01:35 Ur Phencyclidine Scrn, (NEGATIVE) Negative 11/05/23, 16:26 Review of Systems ROS Status of ROS 10 or more systems reviewed and unremarkable except as noted in history and below PFSH PFSH Medical History Acute metabolic encephalopathy ?G93.41 - Metabolic encephalopathy (ICD-10) Dehydration ?E86.0 - Dehydration (ICD-10) Acute kidney injury superimposed on chronic kidney disease ?N17.9 - Acute kidney failure, unspecified (ICD-10) ?N18.9 - Chronic kidney disease, unspecified (ICD-10) Generalized weakness ?R53.1 - Weakness (ICD-10) Accidental fall ?W19.XXXA - Unspecified fall, initial encounter (ICD-10) COVID-19 ?U07.1 - COVID-19 (ICD-10) Pneumonia ?J18.9 - Pneumonia, unspecified organism (ICD-10) Seizure disorder ?G40.909 - Epilepsy, unspecified, not intractable, without status epilepticus (ICD-10) Altered mental status ?R41.82 - Altered mental status, unspecified (ICD-10) Weakness ?R53.1 - Weakness (ICD-10) Ambulatory dysfunction ?R26.2 - Difficulty in walking, not elsewhere classified (ICD-10) Fall ?W19.XXXA - Unspecified fall, initial encounter (ICD-10) Chronic low back pain with bilateral sciatica ?M54.41 - Lumbago with sciatica, right side (ICD-10) ?M54.42 - Lumbago with sciatica, left side (ICD-10) ?G89.29 - Other chronic pain (ICD-10) Altered mental status ?R41.82 - Altered mental status, unspecified (ICD-10) Chronic back pain ?M54.9 - Dorsalgia, unspecified (ICD-10) ?G89.29 - Other chronic pain (ICD-10) Orthostatic dizziness ?R42 - Dizziness and giddiness (ICD-10) Accidental fall ?W19.XXXA - Unspecified fall, initial encounter (ICD-10) CAD (coronary artery disease) ?I25.10 - Atherosclerotic heart disease of [place] coronary artery without angina pectoris (ICD-10) Back pain ?M54.9 - Dorsalgia, unspecified (ICD-10) 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 - Fusion of spine, lumbar region (ICD-10) High cholesterol ?E78.00 - Pure hypercholesterolemia, unspecified (ICD-10) Hypertension ?I10 - Essential (primary) hypertension (ICD-10) IDDM (insulin dependent diabetes mellitus) Restless leg syndrome ?G25.81 - Restless legs syndrome (ICD-10) Suicidal ideation ?R45.851 - Suicidal ideations (ICD-10) Sleep apnea ?G47.30 - Sleep apnea, unspecified (ICD-10) Anxiety ?F41.9 - Anxiety disorder, unspecified (ICD-10) Metabolic encephalopathy ?G93.41 - Metabolic encephalopathy (ICD-10) Depression ?F32.A - Depression, unspecified (ICD-10) Acute renal failure ?N17.9 - Acute kidney failure, unspecified (ICD-10) Altered mental status ?R41.82 - Altered mental status, unspecified (ICD-10) Surgical History S/P CABG (coronary artery bypass graft) ?Z95.1 - Presence of aortocoronary bypass graft (ICD-10) History of heart artery stent ?Z95.5 - Presence of coronary angioplasty implant and graft (ICD-10) Family History Mother Family history of myocardial infarction Social History Within the past year, how often did you have a drink containing alcohol: never Score interpretation: A score less than 4 is consistent with normal alcohol consumption. 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 Known occupational exposures/hazards: No Highest level of school completed/degree received: high school graduate Do you want help with school or training: No Are you now , , , , never or living with a partner: In a typical week, how many times do you talk on the telephone with family, friends, or neighbors: never How often do you get together with friends or relatives: never How often do you attend taoism or restorationism services: never Do you belong to any clubs or organizations such as taoism groups unions, fraternal or athletic groups, or school groups: no Total score: 1 Score interpretation: A score of less than or equal to 1 indicates the most socially isolated. Little interest or pleasure in doing things: nearly every day Feeling down, depressed, or hopeless: several days Feel stressed/tense/nervous/anxious/difficulty sleeping: very much Life stressors: recent of family or friend Life stressor details: mother and step father a year ago Due to disability, difficulty making decisions: No Do you think of yourself as: straight/heterosexual Gender Identity: male Exam Narrative Exam Narrative: VITALS: I have reviewed the triage vital signs. GENERAL: Well developed, well appearing adult in no acute distress. NEURO: Alert and oriented. Moves all extremities. Face is symmetric and expressive. EYES: PERRL. No scleral icterus or conjunctival injection. No discharge. HENT: Normocephalic, atraumatic. Hearing is grossly intact. Nares grossly patent and without discharge. Mucous membranes moist. NECK: No JVD. Patient moves neck without restriction. No midline cervical tenderness CARDIO: Rhythm regular. Normal rate. No murmur, rub, or gallop. Pulses equal bilaterally in the upper and lower extremity. No lower extremity edema. PULM: Lungs clear to auscultation in all marshall. No wheezes, rales, or rhonchi. No conversational dyspnea. No splinting, stridor, or accessory muscle use. Right lower Extremity: DP and PT pulses intact. Limb is similar color and temperature to the contralateral limb. Compartments soft. No swelling. No ecchymosis. No medial malleolus tenderness. No lateral malleolus tenderness. No tenderness at the base of the fifth metatarsal. No midfoot tenderness. No fibular head tenderness. Sensation is intact over the foot and lower leg. Dorsiflexion/plantar flexion, knee flexion/extension, hip flexion/extension are grossly intact by strength testing. SKIN: Warm and dry. Normal turgor. No rash or lesions appreciated. PSYCH: Mood, affect, and interaction is appropriate to the setting. Constitutional Vital Signs, click to edit/add: Last Vital Signs Temp 97.3 F L 01/31/25 20:09 Pulse 84 01/31/25 21:32 Resp 18 01/31/25 21:32 BP 166/81 H 01/31/25 21:32 Pulse Ox 96 01/31/25 21:32 O2 Del Method Room Air 01/31/25 20:09 Course Vital Signs Vital signs: Vital Signs Temperature 97.3 F L 01/31/25 20:09 Pulse Rate 84 01/31/25 20:09 Respiratory Rate 16 01/31/25 20:09 Blood Pressure 155/78 H 01/31/25 20:09 Pulse Oximetry 94 L 01/31/25 20:09 Oxygen Delivery Method Room Air 01/31/25 20:09 Temperature 97.3 F L 01/31/25 20:09 Pulse Rate 84 01/31/25 21:32 Respiratory Rate 18 01/31/25 21:32 Blood Pressure 166/81 H 01/31/25 21:32 Pulse Oximetry 96 01/31/25 21:32 Oxygen Delivery Method Room Air 01/31/25 20:09 Medical Decision Making MDM Narrative Medical decision making narrative: 69-year-old male to the emergency department chief complaint of pain in his right knee after feeling a pop while ambulating. Vital stable, the patient is afebrile. The right lower extremity is neurovascularly intact. He has an unremarkable exam. There is some nonspecific generalized tenderness. No point bony tenderness. Will order an x-ray, Percocet for pain. X-ray without acute fracture by my read. Given his significant pain he is placed in a knee immobilizer. He uses a walker. He will follow-up with orthopedics. He can continue his pain regimen at home. Patient was discharged back to his alf facility. Medical Records Medical records reviewed: Yes I reviewed the patient's medical records Imaging Data Knee x-ray: Attestation: I personally reviewed and interpreted this imaging study as follows: (No acute fracture or dislocation) Discharge Plan Discharge Chief Complaint: Extremity Problem, Nontraumatic Clinical Impression: Acute knee pain Patient Disposition: Home, Self-Care Time of Disposition Decision: 21:35 Condition: Good Mode of Transportation: EMS Prescriptions / Home Meds: No Action clopidogrel 75 mg tablet 75 mg PO QDAY celecoxib 200 mg Capsule 200 mg PO DAILY Qty: 30 11RF docusate sodium [Col-Rite] 100 mg capsule 100 mg PO DAILY PRN (Reason: constipation) ipratropium bromide 0.02 % solution 2.5 ml inhalation QID PRN (Reason: shortness of breath or wheezing) guaifenesin [Mucinex] 600 mg tablet extended release 12hr 600 mg PO BID Rx Instructions: 09/25/24-10/09/24 ondansetron 4 mg tablet,disintegrating 4 mg PO Q6H PRN (Reason: nausea and vomiting) omeprazole 40 mg Capsule,Delayed Release(Dr/Ec) 40 mg PO QD Qty: 30 11RF tramadol 50 mg Tablet 100 mg PO Q6H PRN (Reason: pain) Qty: 120 0RF linezolid in dextrose 5% 600 mg/300 mL Piggyback 600 mg IV Q12H Qty: 3000 0RF mirtazapine 45 mg tablet 45 mg PO .QHS ezetimibe 10 mg tablet 10 mg PO .qhs Patient Comments: at bedtime cyclobenzaprine 10 mg tablet 10 mg PO TID divalproex 500 mg tablet,delayed release (DR/EC) 500 mg PO BID famotidine 40 mg tablet 40 mg PO DAILY tamsulosin 0.4 mg capsule 0.4 mg PO .qhs Patient Comments: bedtime gabapentin 600 mg tablet 600 mg PO QID multivitamin with folic acid [High Potency Multivitamin] 1 tab PO DAILY acetaminophen 500 mg capsule 500 mg PO TID atorvastatin 80 mg tablet 80 mg PO .qhs primidone 50 mg tablet 50 mg PO DAILY aspirin 81 mg tablet,delayed release (DR/EC) 81 mg PO DAILY triamcinolone acetonide 0.1 % cream 1 applic TOPICAL BID PRN (Reason: rash) losartan 50 mg tablet 50 mg PO DAILY nicotine 21 mg/24 hr patch 24 hour 1 patch transdermal Q24H tramadol 100 mg tablet 100 mg PO Q6H MDD 4 PRN (Reason: pain) Qty: 120 0RF albuterol sulfate 90 mcg/actuation Hfa Aerosol Inhaler 2 puff inhalation Q6H Qty: 8.5 11RF Print Language: Yi Instructions: Knee Pain (ED), Knee Immobilizer (ED) Additional Instructions: Call the office of your primary care doctor to arrange for follow-up within the above-stated timeframe. Your ED visit was focused on your acute issue and does not replace primary care. You should review your labs, imaging, and diagnoses from this ED visit with your primary care physician. There may be non-emergent/ incidental findings that need further evaluation. You should review your vital signs including blood pressure with your PCP. If you were prescribed medications you should discuss possible side-effects and drug interactions with your pharmacist. Call 911 or go to the nearest Emergency Department if you develop any new or worsening symptoms. Continue your home pain regimen Follow-up with orthopedics Referrals: Norbert Jiang MD [Primary Care Provider, Family Practice] - 1 week Amadou Guerra MD [Physician] - 1 week
--- OUTSIDE RECORDS SUMMARY | 2025-01-31 20:24 | XMS_ITS | Clinical Summary ---
Author Organization [facility] Address [address] [place] [address] Care Team Providers Care Hostel Manager Name Role Phone Norbert Jiang MD Primary Care Provider [phone] Allergies Active Allergy Reactions Criticality Noted Date Comments Amitriptyline Other,Unknown 05/18/2014 [place] sick Other reaction(s): Unknown Citalopram Other,Unknown 01/10/2021 Fentanyl Unknown,Other 12/26/2016 [place] sick unknown Succinylcholine Anaphylaxis,Unknown, Othe r High 09/08/2004 Paralyzed for 8 hours after surgery Venlafaxine Other,Unknown 05/13/2014 Memory loss Medications Medication Sig Dispensed Refills Start Date End Date Status celecoxib (CeleBREX) 200 mg capsule Take 1 capsule by mouth in the morning. 07/17/2022 Active carvedilol (Coreg) 12.5 mg tablet Take 12.5 mg by mouth with breakfast and with evening meal. 06/07/2022 Active aspirin 81 mg EC tablet Take 81 mg by mouth in the morning. Active clopidogrel (Plavix) 75 mg tablet Take 1 tablet by mouth in the morning. 07/29/2019 Active gabapentin (Neurontin) 600 mg tablet Take by mouth in the morning. 02/12/2024 Active tamsulosin (Flomax) 0.4 mg 24 hr capsule Take 1 capsule by mouth in the morning. Active cyclobenzaprine (Flexeril) 10 mg tablet Take 10 mg by mouth every 8 (eight) hours if needed. 01/12/2024 Active divalproex (Depakote) 500 mg EC tablet Take 500 mg by mouth in the morning and at bedtime. 12/19/2023 Active famotidine (Pepcid) 40 mg tablet Take by mouth in the morning. 02/11/2024 Active mirtazapine (Remeron) 45 mg tablet Take 45 mg by mouth at bedtime. 01/23/2024 Active acetaminophen 500 mg capsule Take 650 mg by mouth every 6 (six) hours if needed. 10/03/2021 Active docusate sodium (Colace) 100 mg capsule Take 100 mg by mouth in the morning and at bedtime. Active traMADol (Ultram) 50 mg tablet Take 50 mg by mouth every 6 (six) hours if needed for severe pain (8-10 pain score). 03/11/2024 Active candesartan (Atacand) 8 mg tabletIndications:A bnormal stress test,Stenosis of carotid artery, unspecified laterality,Primary hypertension,Athero sclerosis of [place] coronary artery of [place] heart without angina pectoris,Type 2 diabetes mellitus with other circulatory complication, without long-term current use of insulin ([facility]),Mixed hyperlipidemia,Hx of CABG Take 1 tablet (8 mg) by mouth in the morning. 90 tablet 3 04/01/2024 04/01/2025 Active ezetimibe (Zetia) 10 mg tabletIndications:A bnormal stress test,Stenosis of carotid artery, unspecified laterality,Primary hypertension,Athero sclerosis of [place] coronary artery of [place] heart without angina pectoris,Type 2 diabetes mellitus with other circulatory complication, without long-term current use of insulin ([facility]),Mixed hyperlipidemia,Hx of CABG Take 1 tablet (10 mg) by mouth in the morning. 90 tablet 3 04/01/2024 04/01/2025 Active atorvastatin (Lipitor) 80 mg tabletIndications:A bnormal stress test,Stenosis of carotid artery, unspecified laterality,Primary hypertension,Athero sclerosis of [place] coronary artery of [place] heart without angina pectoris,Type 2 diabetes mellitus with other circulatory complication, without long-term current use of insulin ([facility]),Mixed hyperlipidemia,Hx of CABG Take 1 tablet (80 mg) by mouth in the morning. 90 tablet 3 04/01/2024 04/01/2025 Active losartan (Cozaar) 50 mg tablet Take 50 mg by mouth in the morning. 06/25/2024 Active Active Problems Problem Noted Date Diagnosed Date Anxiety 01/12/2025 Depressive disorder 01/12/2025 Other specified local infect ions of the skin and subcutaneous tissue 12/31/2024 Limitation of activities due to disability 11/03 Unspecified systolic (congestive) heart failure 10/11/2024 Nausea 10/02/2024 Sepsis, unspecified organism 10/02/2024 Chronic obstructive pulmonary disease, unspecifi ed 09/13/2024 Presence of aortocoronary bypass graft Abnormal stress test 02/17/2024 Acute encephalopathy 02/14/2024 PATRICIO (acute kidney injury) 02/14/2024 Ataxia 02/14/2024 Atherosclerosis of coronary artery 02/14/2024 Bipolar 1 disorder, depressed, severe 02/14/2024 Chest pain 02/14/2024 Dysphagia 02/14/2024 History of male genital system disorder 02/14/20 Hx of CABG 02/14/2024 Hypokalemia 02/14/2024 Lobar pneumonia 02/14/2024 Muscle weakness 02/14/2024 Myoclonic jerking 02/14/2024 Overweight with body mass index (BMI) 25.0-29.9 02/14/2024 Preoperative clearance 02/14/2024 Schizoaffective disorder 02/14/2024 Suicidal ideation 02/14/2024 Multifactorial gait disorder 08/14/2022 Recurrent falls 08/14/2022 Metabolic encephalopathy 06/14/2022 Acute respiratory failure with hypoxia and hyper capnia 05/10/2022 Aspiration pneumonia due to gastric secretions 0 05/10/2022 Generalized weakness 05/10/2022 History of mechanical ventilation 05/10/2022 CAP (community acquired pneumonia) 12/22/2021 Benign localized hyperplasia of prostate 022 Chronic back pain 11/30/2021 Chronic diastolic heart failure 11/30/2021 Chronic kidney disease 11/30/2021 Bipolar disorder 11/30/2021 Insomnia 11/30/2021 Iron deficiency anemia 11/30/2021 Restless legs syndrome 11/30/2021 Disorder of sacrum 08/22/2021 Lumbar spondylosis 08/22/2021 Lumbar neuritis 08/22/2021 Outbursts of anger 03/26/2019 Severe episode of recurrent major depressive disorder, without psychotic features 02/10/2019 Marital conflict 04/28/2018 Generalized anxiety disorder 06/03/2017 DDD (degenerative disc disease), lumbosacral Diabetes mellitus 11/25/2014 Hyperlipidemia 11/25/2014 Adiposity 11/25/2014 Obesity 11/25/2014 BP (high blood pressure) 11/25/2014 Stenosis of carotid artery 11/25/2014 Smoker 11/25/2014 Encounters Date Type Department Care Team Description 01/12/2025 2:45 PM EDT Office Visit [facility] [address] [place] [phone] Dottie De León MD Pre-op evaluation (Primary Dx); Hx of CABG; Stenosis of right carotid artery; Type 2 diabetes mellitus with other circulatory complication, without long-term current use of insulin ([facility]); Mixed hyperlipidemia; Primary hypertension; Coronary artery disease involving [place] coronary artery of [place] heart without angina pectoris from Last 3 Months Family History Medical History Relation Name Comments No Known Problems Father No Known Problems Mother Relation Name Status Comments Father Mother Social History Tobacco Use Types Packs/Day Years Used Date Smoking Tobacco: Former Cigarettes Smokeless Tobacco: Never Alcohol Use Standard Drinks/Week Comments Not Currently 0 (1 standard drink = 0.6 oz pur e alcohol) [place] Safety & Environment Answer Date Rec orded Fear of Current or Ex-Partner Not on file Emotionally Abused Not on file 10/31/2023 Physically Abused Not on file 10/31/2023 Sexually Abused Not on file 10/31/2023 Physically or Sexually Abused Not on file Sex and Gender Information Value Date Recorded Sex Assigned at Male 01/08/2025 10:45 AM EDT Gender Identity Male 01/08/2025 10:45 AM EDT Sexual Orientation Heterosexual or Straight 10/2024 10:45 AM EDT Last Filed Vital Signs Vital Sign Reading Time Taken Comments Blood Pressure 112/70 01/12/2025 2:45 PM EDT Pulse 86 01/12/2025 2:45 PM EDT Temperature - - Respiratory Rate 13 01/12/2025 2:45 PM EDT Oxygen Saturation 95% 01/12/2025 2:45 PM EDT Inhaled Oxygen Concentration - - Weight 102 kg (225 lb) 01/12/2025 2:45 PM EDT Height 177.8 cm (5' 10 ) 01/12/2025 2:45 PM EDT Body Mass Index 32.28 01/12/2025 2:45 PM EDT Plan of Treatment Health Maintenance Due Date Last Done Comments CT Colonography 1955 Colonoscopy 1955 Colorectal Cancer Screening 1955 Diabetes: Hemoglobin A1C 1956 FIT-DNA 1956 FIT 1956 FOBT 1955 Medicare Annual Wellness (AWV) 1955 Sigmoidoscopy 1956 Diabetes: Retinopathy Screening 1966 Depression Screening 1968 Diabetes: Urine Protein Screening 1975 Adult Tetanus 1978 Zoster Vaccines (1 of 2) 2006 Pneumococcal Vaccine: 65+ Years (2 of 2 - PPSV23 or PCV20) 01/24/2021 11/29/2020, 08/30/2020 Fall Risk Screening 2021 COVID-19 Vaccine ( season) 2024 04/23/2022 Influenza Vaccine (Season Ended) 2025 06/23/2021, 11/29/2020, 08/30/2020, Additional history exists HIB Vaccines Aged Out No longer eligi ble based on patient's age to complete this topic HPV Vaccines Aged Out No longer eligi ble based on patient's age to complete this topic IPV Vaccines Aged Out No longer eligi ble based on patient's age to complete this topic Meningococcal B Vaccine Aged Out No l onger eligible based on patient's age to complete this topic Meningococcal Vaccine Aged Out No katey yolanda eligible based on patient's age to complete this topic Rotavirus Vaccines Aged Out No longer eligible based on patient's age to complete this topic Care Teams Hostel Manager Relationship Specialty Start Date End Date Norbert Jiang MD [address] [address] PCP - General 02/17/24
--- OUTSIDE RECORDS SUMMARY | 2025-01-31 20:24 | XMS_ITS ---
Author Organization [facility] Care Team Providers Care Processor Grain Name Role Phone Ramos Sun Jr Unavailable Unavailable Terra Rivera Unavailable Unavailable Aung Barrios Unavailable Unavailable Reyna Robles Unavailable UnavailJacqueline Mendez Unavailable Unavailable Allergies and adverse reactions Code CodeSystem Substance Reaction Severity StartDate Concern Status 78223 RXNORM tiZANidine Unknown 09/22/2021 active 60621 RXNORM Succinylcholine Unknown 09/22/2021 activ e 6809 RXNORM metFORMIN Unknown 12/30/2021 active 4337 RXNORM fentaNYL Unknown 09/22/2021 active Elavil Unknown 09/22/2021 active Effexor Unknown 09/21/2021 active 2556 RXNORM Citalopram Unknown 09/21/2021 active CeleXA Unknown 09/21/2021 active 704 RXNORM Amitriptyline Unknown 09/21/2021 active Care Team Name Role Address Phone Organization Dates Jacqueline Ludwig [address], [address], [place] (Office): : [facility] 05/16/2022 - 06/06/2022 Ramos Sun Jr [facility] [place], [address], [place] (Office): : : - (Pager): [facility] 05/16/2022 - 06/06/2022 Terra Rivera [address] [place], [address], [place] (Office): [facility] 05/16/2022 - 06/06/2022 Aung Camejowalski [address] [place], [address], [facility] (Office): : [facility] 05/16/2022 - 06/06/2022 Reyna Robles [address] [place], [address], [place] (Cell): [facility] 05/16/2022 - 06/06/2022 Immunizations Immunization Status Vaccine Details Vaccine Code CodeSystem Date Notes Influenza completed Influenza, high-dose, split virus, quadrivalent, injectable, preservative free 197 CVX created date: 09/25/2021 administer ed date: 06/23/2021 TB 2 Step Mantoux Skin Test completed tuberculin skin test; unspecified formulation Given 0.1 ml Right Forearm intradermally Step 2 of Multi-step with next step required 98 CVX created date: 05/25/2022 consent date: 05/25/2022 administer ed date: 05/24/2022 Read by Meghna Bacon on 05/26/22 per MAR TB 2 Step Mantoux Skin Test completed tuberculin skin test; unspecified formulation lotNumber: [id number] expiry: 06/09/2022 Mfg: [employer] Given 0.1 ml Right Forearm intradermally Step 1 of Multi-step with next step required 98 CVX created date: 05/18/2022 consent date: 05/17/2022 administer ed date: 05/18/2022 TB 2 Step Mantoux Skin Test completed tuberculin skin test; unspecified formulation lotNumber: [id number] expiry: 05/10/2022 Mfg: [employer] Given 0.1 ml Left Forearm intradermally Step 2 of Multi-step with next step required 98 CVX created date: 01/08/2022 consent date: 01/08/2022 administer ed date: 01/08/2022 TB 2 Step [place]oux Skin Test completed tuberculin skin test; unspecified formulation Given 0.1 ml Right Forearm intramuscularly Step 1 of Multi-step with next step required 98 CVX created date: 01/01/2022 consent date: 01/01/2022 administer ed date: 01/01/2022 TB 2 Step [place]oux Skin Test completed tuberculin skin test; unspecified formulation Given 0.1 ml Left Forearm intradermally Step 2 of Multi-step with next step required 98 CVX created date: 10/02/2021 consent date: 10/02/2021 administer ed date: 09/29/2021 Read by Grace Owusu on 10/01/21 per MICHELLE TB 2 Step [place]oux Skin Test completed tuberculin skin test; unspecified formulation Given 0.1 ml Right Forearm intradermally Step 1 of Multi-step with next step required 98 CVX created date: 09/23/2021 consent date: 09/22/2021 administer ed date: 09/23/2021 SARS-COV-2 (COVID-19) completed SARS-COV-2 (COVID-19) vaccine, mRNA, spike protein, LNP, preservative free, 10 mcg/0.2mL dose, tawana-sucrose formulation Mfg: Pfizer Step 2 of Multi-step with next step required 218 CVX created date: 09/25/2021 administer ed date: 12/20/2020 SARS-COV-2 (COVID-19) completed SARS-COV-2 (COVID-19) vaccine, mRNA, spike protein, LNP, preservative free, 30 mcg/0.3mL dose Step 1 of Multi-step with next step required 208 CVX created date: 09/25/2021 administer ed date: 11/26/2020 Prevnar 13 completed pneumococcal conjugate vaccine, 13 valent 133 CVX created date: 09/22/2021 administer ed date: 11/29/2020 Prevnar 13 completed pneumococcal conjugate vaccine, 13 valent 133 CVX created date: 01/19/2022 administer ed date: 08/30/[address] Jiang's nurse resident had the PCV in their office on 08/30/20, and he was given it a second time by [facility] on 11/29/20. PPSV 23 completed pneumococcal polysaccharide vaccine, 23 valent Given 0.5 ml Left Deltoid intramuscularly 33 CVX created date: 01/22/2022 consent date: 01/22/2022 administer ed date: 01/20/2022 Mental Status Section Date Assessment Total Score Description 06/06/2022 BIMS 14 cognitively int act CAM 0 No delirium ind icated PHQ-9 03 minimal depress ion 05/23/2022 BIMS 14 cognitively int act CAM 0 No delirium ind icated PHQ-9 03 minimal depress ion Problems Problem # Description Date of onset Resolved Date Code CodeSystem Concern Status 1 BODY MASS INDEX [BMI]30.0-30.9, ADULT 688413816 SNOMED CT active 2 IRRITABLE BOWEL SYNDROME WITH DIARRHEA 689204718 SNOMED CT active 3 DIFFICULTY IN WALKING, NOT ELSEWHERE CLASSIFIED 210337173 SNOMED CT active 4 MUSCLE WEAKNESS (GENERALIZED) 26215191 SNOMED CT active 5 NEED FOR ASSISTANCE WITH PERSONAL CARE 81965426560380053 SNOMED CT active 6 OTHER FATIGUE 75769937 SNOMED CT active 7 ANEMIA, UNSPECIFIED 022 05/16/[address] completed 8 BODY MASS INDEX [BMI] 29.0-29.9, ADULT 05/30/[address] completed 9 [address]ASTRIC PAIN 22174783 SN[address] active 10 IRON DEFICIENCY 05/16/[address] completed 11 IRON DEFICIENCY ANEMIA, UNSPECIFIED 54844616 SNOMED CT active 12 HYPOKALEMIA 022 05/18/[address] completed 13 UNSPECIFIED PSYCHOSIS NOT DUE TO A SUBSTANCE OR KNOWN PHYSIOLOGICAL CONDITION 186903197 SNOMED CT active 14 BODY MASS INDEX [BMI] 31.0-31.9, ADULT 02/10/[address] completed 15 PRESSURE ULCER OF RIGHT BUTTOCK, STAGE 2 022 01/16/[address] completed 16 DIFFICULTY IN WALKING, NOT ELSEWHERE CLASSIFIED 022 02/10/[address] completed 17 DYSPHAGIA, OROPHARYNGEAL PHASE 02/10/[address] completed 18 MUSCLE WEAKNESS (GENERALIZED) 02/10/[address] completed 19 OTHER FATIGUE 02/10/[address] completed 20 OTHER PROBLEMS RELATED TO LIFE MANAGEMENT DIFFICULTY 02/10/[address] completed 21 CHRONIC KIDNEY DISEASE, UNSPECIFIED 612417969 SNOMED CT active 22 GENERALIZED ANXIETY DISORDER 65888792 SNOMED CT active 23 MAJOR DEPRESSIVE DISORDER, RECURRENT SEVERE WITHOUT PSYCHOTIC FEATURES 19368591 SNOMED CT active 24 NICOTINE DEPENDENCE, UNSPECIFIED, UNCOMPLICATED 91135610 SNOMED CT active 25 OCCLUSION AND STENOSIS OF UNSPECIFIED CAROTID ARTERY 06234253 SNOMED CT active 26 OLD MYOCARDIAL INFARCTION [address] active 27 PERSONAL HISTORY OF TRANSIENT ISCHEMIC ATTACK (TIA), AND CEREBRAL INFARCTION WITHOUT RESIDUAL DEFICITS 77459287 SNOMED CT active 28 PNEUMONIA, UNSPECIFIED ORGANISM 02/10/[address] completed 29 SPONDYLOSIS WITHOUT MYELOPATHY OR RADICULOPATHY, LUMBAR REGION 591262286 SNOMED CT active 30 BODY MASS INDEX [BMI] 32.0-32.9, ADULT 01/09/[address] completed 31 NOCTURIA 022 02/10/[address] completed 32 POST-VOID DRIBBLING 02/10/[address] completed 33 URGE INCONTINENCE 02/10/[address] completed 34 BODY MASS INDEX [BMI] 31.0-31.9, ADULT 022 10/16/[address] completed 35 DIFFICULTY IN WALKING, NOT ELSEWHERE CLASSIFIED 12/29/[address] completed 36 MUSCLE WEAKNESS (GENERALIZED) 022 12/29/[address] completed 37 OBESITY, UNSPECIFIED 02/10/[address] completed 38 OTHER FATIGUE 12/29/[address] completed 39 OTHER PROBLEMS RELATED TO LIFE MANAGEMENT DIFFICULTY 12/29/[address] completed 40 POLYNEUROPATHY, UNSPECIFIED 45040108 SNOMED CT active 41 ANXIETY DISORDER, UNSPECIFIED 12/29/[address] completed 42 ATHEROSCLEROTIC HEART DISEASE OF [place] CORONARY ARTERY WITHOUT ANGINA PECTORIS 558616744542317 SNOMED CT active 43 BENIGN PROSTATIC HYPERPLASIA WITHOUT LOWER URINARY TRACT SYMPTOMS 429786800 SNOMED CT active 44 BIPOLAR DISORDER, UNSPECIFIED 88384813 SNOMED CT active 45 CHRONIC DIASTOLIC (CONGESTIVE) HEART FAILURE 118523250 SNOMED CT active 46 CHRONIC OBSTRUCTIVE PULMONARY DISEASE, UNSPECIFIED 82619929 SNOMED CT active 47 CHRONIC VIRAL HEPATITIS C 12/29/[address] completed 48 DEPRESSION, UNSPECIFIED 12/29/[address] completed 49 DYSPHAGIA, UNSPECIFIED 02/10/[address] completed 50 ESSENTIAL (PRIMARY) HYPERTENSION 42632796 SNOMED CT active 51 FUSION OF SPINE, LUMBAR REGION 715241534 SNOMED CT active 52 HEPATOMEGALY, NOT ELSEWHERE CLASSIFIED 12/29/[address] completed 53 HISTORY OF FALLING [address] active 54 HYPERLIPIDEMIA, UNSPECIFIED 51198060 SNOMED CT active 55 INSOMNIA, UNSPECIFIED 270019507 SNOMED CT active 56 IRON DEFICIENCY ANEMIA, UNSPECIFIED 12/29/[address] completed 57 LOBAR PNEUMONIA, UNSPECIFIED ORGANISM 12/29/[address] completed 58 OTHER INTERVERTEBRAL DISC DEGENERATION, LUMBAR REGION 12/29/[address] completed 59 PERIPHERAL VASCULAR DISEASE, UNSPECIFIED 359823957 SNOMED CT active 60 RESTLESS LEGS SYNDROME 95427017 SNOMED CT active 61 TYPE 2 DIABETES MELLITUS WITHOUT COMPLICATIONS 194012392 SNOMED CT active 62 UNSPECIFIED OSTEOARTHRITIS, UNSPECIFIED SITE 650333659 SNOMED CT active Reason for Referral No Reasons for Referral Entered Social History Social History Observation Description Start Date End Date Code Code System Current Smoking Status Tobacco smoking consumption unknown 351339918 SNOMED CT Sex Assigned At Male 1955 42284-6 [facility] Gender Identity Vital Signs Code Code System Vitals Name Values and Units Timing Information 40795-3 [facility] Pain Level Value=7.0 06/06/2022 9279-1 [facility] Respiratory Rate Value=20.0 Units=/m in 06/06/2022 8310-5 [facility] Body Temperature Value=97.6 Units= F 06/06/2022 71089-8 [facility] O2 % BldC Oximetry Value=95.0 Units= % 06/06/2022 8462-4 [facility] Blood Pressure-Diastolic Value=50 Un its=mmHg 06/06/2022 8480-6 [facility] Blood Pressure-Systolic Value=90 Uni ts=mmHg 06/06/2022 8867-4 [facility] Heart rate Value=74.0 Units=/min 59363-1 [facility] Weight Jzsfc=704.2 Units=Lbs 8302-2 [facility] Height Value=70.0 Units=Inches 05/17/2022 2339-0 [facility] Blood Sugar Oajuu=037.0 Units=mg/dL 02/10/2022
--- OUTSIDE RECORDS SUMMARY | 2025-01-31 20:24 | XMS_ITS | Encounter Summary ---
Author Organization [facility] Address [address] [place] [address] Phone Care Team Providers Care Clinical Nurse Occupational Medicine Name Role Phone Unavailable Primary Care Provider Unavailabl e Encounter Details Date Type Department Care Team (Late st Contact Info) Description 07/17/2022 Orders Only [facility] [address] [place] [address] Conversion, Onbase Social History Tobacco Use Types Packs/Day Years Used Date Smoking Tobacco: Never Assessed Sex and Gender Information Value Date Recorded Sex Assigned at Not on file Legal Sex Male 8:27 PM EST Gender Identity Not on file Sexual Orientation Not on file documented as of this encounter Plan of Treatment Scheduled Orders Name Type Priority Associated Diagnoses Orde r Schedule OUTSIDE LAB SCAN Lab Ordered: 07/17/2022 OUTSIDE LAB SCAN Lab Ordered: 07/17/2022 OUTSIDE LAB SCAN Lab Ordered: 07/17/2022 OUTSIDE LAB SCAN Lab Ordered: 07/17/2022 documented as of this encounter Visit Diagnoses Not on filedocumented in this encounter
--- OUTSIDE RECORDS SUMMARY | 2025-01-31 20:24 | XMS_ITS | Encounter Summary ---
Author Organization [facility] tem Address [id number] [address] [place] [address] Care Team Providers Care Foiling Machine Operator Name Role Phone Norbert Jiang MD Primary Care Provider [phone] Reason for Visit * Reason Onset Date Comments Plavix-hold 08/30/2021 Encounter Details Date Type Department Care Team (Late st Contact Info) Description 08/30/2021 Telephone [facility] [address] [place] [id number] Eloina Arango RN Plavix-hold Social History Tobacco Use Types Packs/Day Years Used Date Smoking Tobacco: Every Day Cigarettes 1 44 Smokeless Tobacco: Never Comments:has tried patches a nd spoken with PCP Alcohol Use Standard Drinks/Week Comments No 0 (1 standard drink = 0.6 oz pur e alcohol) Childcare Answer Date Recorded Childcare Unknown 02/10/2019 Employment Answer Date Recorded Employment Unknown 02/10/2019 Purpose - Life Answer Date Recorded Purpose and direction in life Unknown Sex and Gender Information Value Date Recorded Sex Assigned at Not on file Legal Sex Male 11:31 AM EDT Gender Identity Not on file Sexual Orientation Not on file COVID-19 Exposure Response Date Recorded In the last month, have you been in contact with someone who was confirmed or suspected to have Coronavirus / COVID-19? No / Unsure 08/22/2021 10:07 AM EST documented as of this encounter Miscellaneous Notes * Telephone Encounter - Eloina Arango RN - 08/30/2021 12:17 PM EST Patient's , Sherly, called office today to inquire whether or not patient needs to hold Plavix prior to 2021 procedure. Call was returned and patient's is informed that per chart, pt doesnot need to hold Plavix prior to 2021 procedure. verbalized understanding. * Telephone Encounter - Nicol Ocampo PA-C - 08/30/2021 12:17 PM EST noted documented in this encounter Plan of Treatment Not on file documented as of this encounter Visit Diagnoses Not on filedocumented in this encounter Care Teams Foiling Machine Operator Relationship Specialty Start Date End Date Norbert Jiang MD PCP - General Family Medicine 07/07/21 documented as of this encounter
--- OUTSIDE RECORDS SUMMARY | 2025-01-31 20:24 | XMS_ITS | Patient Health Record ---
Author Organization [facility] Address [address] [place] [address] Care Team Providers Care Food Writer Name Role Phone Norbert Reynolds Primary Care Provider Unavailalissa e Hernandez Bryson Unavailable [phone] Steve Dennis Unavailable [phone] Josefa Plaza Unavailable [phone] Allergies Allergen (clinical drug ingredient) Drug/Non Drug Allergy documented on EMR Reaction Allergy Type Onset Date Status succinylcholine anesthetic (uncoded) paralyzed after surgery Allergy Active Effexor total memory loss Drug Allergy Active Elavil felt not well Drug Allergy Act renée amitriptyline amitriptyline Unknown Drug Allergy Active fentanyl fentanyl felt not well Drug Allergy Act renée citalopram citalopram Unknown Drug Allergy Activ e cariprazine Vraylar weight gain Drug Allergy Act renée Results Component Value Reference Range Notes Surgery Scheduling (Not yet reviewed by provider) Interpretation: Performing Lab: Notes/Report: Primary Insurance Company: MEDICARE Surgeon/Assist: [facility]/LIAM OR STEVE Surgery Location: [facility] Surgery Date & Time: 02/02/25 @ 12:30PM Hosp arrival time day of: 10:30AM Surgery End Time: 3:30PM Procedure: L4-5 HARDWARE REMOVA L, L4-S1 DECOMPRESSION AND FUSION WITH EXTENSION TO S1, L5-S1 TLIF Special Equipment: SSEP, CELL SAVER, MO ONE, JEANETTE TABLE, SURGALIGN Diagnosis: M48.07 Admission Type: OBS Anesthesia Type/CPNB: GENERAL Post-op Appointment Date: 03/26/25 @ 9:50AM [facility] Latex Allergy NO Lab Location: [facility] Box Coverer Hand: JALIL Clearance Physician: DR REYNOLDS 01/20/25 @ 1PM Clearance Appt Date/T DR TOVAR 01/12/25 @ 2:45PM History & Physical Appointme nt Date/: 01/29/25 @ 11:30AM GAURAV Reason For Referral No Information Medications Medication SIG (Take, Route, Fr equency, Duration) Notes Start Date End Date Status clopidogrel Active simvastatin Active doxepin Active divalproex sodium Ac tive rOPINIRole Active traZODone Active amLODIPine Active gabapentin Active Hibiclens 4% 1 armando applied topica lly once for 5 days 01/11/2025 Active Aspir 81 Active Social History Tobacco Use: Social History Observation Description Date Details (start date - stop date) Current Smoker NA - NA Smoking History Question Answer Notes Smoking Status Current Smoker When did you start smoking? 1973 How much do you smoke 11 - 20 How soon after you wake up do you smoke your fir st cigarette? within 5 min Problems Problem Type SNOMED Code ICD Code Onset Dates Problem Status W/U Status Risk Notes Problem 061366907 Arthrodesis stat (Z98.1) Active confirmed Problem 365018127 Spinal stenosis, lumbosacral region (M48.07) Active confirmed Problem 82216486 Other intervertebral disc degeneration, lumbosacral region (M51.37) Active confirmed Problem 92455609 Sciatica of righ t side (M54.31) Active confirmed Problem 50735497 Degeneration of intervertebral disc of lumbosacral region with discogenic back pain and lower extremity pain (M51.372) Active confirmed Encounters Encounter Location Date Provider Diagnosis [address] [place] [address] [place] [address] 12/11/2024 [facility] Spinal stenosis, lumbosacral region M48.07 ; Degeneration of intervertebral disc of lumbosacral region with discogenic back pain and lower extremity pain M51.372 and Arthrodesis status Z98.[address] [facility] [address] [place] [address] 06/08/2024 Hernandez Tom Clair Radiculopathy, lumbosacral region M54.17 and Spinal stenosis, lumbosacral region M48.07 [facility] [address] [place] [address] 01/11/[address] [place] [address] 01/11/[address] [place] [address] 01/29/2025 Steve Jeannie Assessments Encounter Date Diagnosis (ICD Code) Assessment Notes Treatment Notes Treatment Clinical Notes Section Notes 06/08/2024 Spinal stenosis, lumbosacral region (ICD-10 - M48.07) 06/08/2024 Radiculopathy, lumbosacral region (ICD-10 - M54.17) 12/11/2024 Spinal stenosis, lumbosacral region (ICD-10 - M48.07) 1. Prior L4-5 posterior fusion 2.. L5-S1 degenerative disc disease 3. L4-S1 stenosis with radiculopathy 12/11/2024 Degeneration of intervertebral disc of lumbosacral region with discogenic back pain and lower extremity pain (ICD-10 - M51.372) 1. Prior L4-5 posterior fusion 2.. L5-S1 degenerative disc disease 3. L4-S1 stenosis with radiculopathy 12/11/2024 Arthrodesis status (ICD-10 - Z98.1) 1. Prior L4-5 posterior fusion 2.. L5-S1 degenerative disc disease 3. L4-S1 stenosis with radiculopathy 12/11/2024 Other Plan established by Dr. Oates. Patient was evaluated by myself and Dr. Oates today. Surgical risks and benefits were discussed of L4-5 hardware removal, L4-S1 decompression and fusion with extension to S1, L5-S1 TLIF. Risks include, but are not limited to paralysis, infection, dural tear, nerve root injury, nonunion, etc. Patient would like to proceed with surgical intervention. The patient is very much in agreement with the treatment and/or diagnostic plan set forth and all questions were answered to the patient's satisfaction. Thanks once again. If we can be of further service to your patients with disorders of the spine, cervical, thoracic, or lumbar, please do not hesitate to contact Dr. Oates. Best regards, 1. Prior L4-5 posterior fusion 2.. L5-S1 degenerative disc disease 3. L4-S1 stenosis with radiculopathy Plan Of Treatment Pending Test Test Name Order Date Lumbar spine 2v flex and ext - 38179 Surgery Scheduling 12/29/2024 DME - Lumbar Support, Surgical OTS 01/26 Future Test Test Name Order Date Chest 2 views - [id number] 01/07/2024 CBC 01/07/2024 HGB A1C 01/07/2024 PT/PTT 01/07/2024 BMP 01/07/2024 MRSA (Bilateral Nares) PCR 01/07/2024 EKG 01/07/2024 Chest 2 views - [id number] 06/08/2024 CBC 06/08/2024 HGB A1C 06/08/2024 PT/PTT 06/08/2024 BMP 06/08/2024 MRSA (Bilateral Nares) PCR 06/08/2024 Chest 2 views - [id number] 12/29/2024 CBC 12/29/2024 Type and Screen Blood Type 12/29/2024 HGB A1C 12/29/2024 PT/PTT 12/29/2024 BMP 12/29/2024 MRSA (Bilateral Nares) PCR 12/29/2024 EKG 12/29/2024 Next Appt Details Provider Name:Hernandez Hayes [facility], 02/02/2025 11:00:00 AM, [facility] [place], [place], [id number], Provider Name:Hernandez Hayes [facility], 03/26/2025 09:50:00 AM, [address] [facility], [address], [place], [address], Insurance Providers Payer Name Payer Address Payer Phone Subscriber Number Group Number Insured Name Patient Relationship to Insured Coverage Start Date Coverage End [place] [address] [place] [address] [phone] [id number] LITOJANELLETAYLOR Potter Self - patient is the insured [employer] [address] [place] [address] [id number] MAHIN MCCLELLAN Spouse - patient is the spouse of the insured Medical (General) History Medical History History ICD Code High Blood Pressure: YES, Diabetes YES, Anxiety: YES, Depression YES, Seen a Psychiatrist: YES, Drug Allergies: YES, Surgical History Surgery Date(Month/Year) Stents in both carotid arteries and both femoral arteries 2006 Bypass surgery 2002
--- OUTSIDE RECORDS SUMMARY | 2025-01-31 20:24 | XMS_ITS | Clinical Summary ---
Author Organization [facility] Address [address] [place] [address] Phone Care Team Providers Care Internet Marketing Analyst Name Role Phone Unavailable Primary Care Provider Unavailabl e Social History Tobacco Use Types Packs/Day Years Used Date Smoking Tobacco: Never Assessed Sex and Gender Information Value Date Recorded Sex Assigned at Not on file Legal Sex Male 8:27 PM EST Gender Identity Not on file Sexual Orientation Not on file Plan of Treatment Health Maintenance Due Date Last Done Comments CT Colonography 1956 Colonoscopy 1956 Colorectal Cancer Screening 1956 FIT-DNA (Cologuard) 1956 FIT 1956 Lipid Panel 1956 Sigmoidoscopy 1956 Yearly Adult Physical 1955 Hepatitis C Screening 1974 Zoster Vaccines (1 of 2) 2006 Pneumococcal Vaccine (2 of 2 - PCV) 01/20/2023 01/20/2022 COVID-19 Vaccine (1 - 2023-2 5 season) 2024 Influenza Vaccine (Season Ended) 2025 RSV High Risk: (Elderly (60+ ) or Population) (1 - 1-dose 75+ series) 2031 DTaP/Tdap/Td Vaccines (2 - T d or Tdap) 08/04/2032 08/04/2022 HIB Vaccines Aged Out No longer eligi ble based on patient's age to complete this topic HPV Vaccines Aged Out No longer eligi ble based on patient's age to complete this topic Hepatitis A Vaccines Aged Out No long er eligible based on patient's age to complete this topic Hepatitis B Vaccines Aged Out No long er eligible based on patient's age to complete this topic IPV Vaccines Aged Out No longer eligi ble based on patient's age to complete this topic Meningococcal Vaccine Aged Out No katey yolanda eligible based on patient's age to complete this topic Rotavirus Vaccines Aged Out No longer eligible based on patient's age to complete this topic
--- OUTSIDE RECORDS SUMMARY | 2025-01-31 20:24 | XMS_ITS | Encounter Summary ---
Author Organization [facility] [employer] [facility] tem Address [id number] [address] [place] [address] Care Team Providers Care Spent Grain Dryer Name Role Phone Norbert Jiang MD Primary Care Provider [phone] Encounter Details Date Type Department Care Team (Late st Contact Info) Description 07/19/2021 Orders Only [facility] [address] [place] [address] Carlos Gaxiola MD [address] [place] [address] Social History Tobacco Use Types Packs/Day Years [...] have Coronavirus / COVID-19? No / Unsure 07/19/2021 11:30 AM EST documented as of this encounter Plan of Treatment Not on file documented as of this encounter Procedures Procedure Name Priority Date/Time Associated Diagnosis Comments XR SPINE LUMBAR 2 OR 3 VWS Routine 09/10/2019 documented in this encounter Results * X-ray spine lumbar 2 or 3 views (09/10/2019) Anatomical Region Laterality Modality MSK, Neuro, Spine, L-spine N/A Compu vernon Radiography Carlos Gaxiola MD IMG DIAGNOSTIC IMAGING ORDER MEG Final Result documented in this encounter Visit Diagnoses Not on filedocumented in this encounter Care Teams Spent Grain Dryer Relationship Specialty Start Date End Date Norbert Jiang MD PCP - General Family Medicine 07/07/21 documented as of this encounter
--- OUTSIDE RECORDS SUMMARY | 2025-01-31 20:24 | XMS_ITS | Encounter Summary ---
Author Organization [facility] tem Address [id number] [address] [place] [address] Care Team Providers Care Air Export Logistics Manager Name Role Phone Norbert Jiang MD Primary Care Provider [phone] Encounter Details Date Type Department Care Team (Late st Contact Info) Description 09/04/2021 Orders Only [facility] [address] [place] [address] Ref Prov, [place] [address] Social History Tobacco Use Types Packs/Day Years [...] have Coronavirus / COVID-19? No / Unsure 09/05/2021 11:15 AM EST documented as of this encounter Plan of Treatment Not on file documented as of this encounter Procedures Procedure Name Priority Date/Time Associated Diagnosis Comments CT LUMBAR SPINE WO CONT Routine 05/13/2021 XR HIP LT 2-3 VIEWS W OR WO PELVIS Routine 05/12/2021 CT CERVICAL SPINE WO CONT Routine 02/10/2021 MR SHOULDER RT WO CONT Routine 09/30/2020 XR SPINE LUMBAR 2 OR 3 VWS Routine 06/16/2019 XR SPINE THORACIC 2 VWS Routine 10/29/2017 XR SPINE CERVICAL 3 VWS OR LESS Routine 03/04/2017 CT LUMBAR SPINE WO CONT Routine 11/21/2011 CT LUMBAR SPINE WO CONT Routine 11/13/2011 CT LUMBAR SPINE WO CONT Routine 02/28/2011 documented in this encounter Results * CT lumbar spine without contrast (05/13/2021) Anatomical Region Laterality Modality MSK, Neuro, Spine, L-spine, Spine Covera N/A Computed Tomography us Not In System Ref Prov IMG CT ORDERABLES Final R esult * X-ray hip left 2-3 views with or without pelvis (05/12/2021) Anatomical Region Laterality Modality Lower Extremities, MSK, Hip Left Comp uted Radiography us Not In System Ref Prov IMG DIAGNOSTIC IMAGING OR DERABLES Final Result * CT cervical spine without contrast (02/10/2021) Anatomical Region Laterality Modality MSK, Neuro, Spine, C-spine, Spine Covera N/A Computed Tomography us Not In System Ref Prov IMG CT ORDERABLES Final R esult * MR shoulder right without contrast (09/30/2020) Anatomical Region Laterality Modality MSK, Shoulder, Upper Extremities, MSK Covera Rig ht Magnetic Resonance us Not In System Ref Prov IMG MRI ORDERABLES Final Result * X-ray spine lumbar 2 or 3 views (06/16/2019) Anatomical Region Laterality Modality MSK, Neuro, Spine, L-spine N/A Compu vernon Radiography us Not In System Ref Prov IMG DIAGNOSTIC IMAGING OR DERABLES Final Result * X-ray spine thoracic 2 views (10/29/2017) Anatomical Region Laterality Modality MSK, Neuro, Spine, T-spine N/A Compu vernon Radiography us Not In System Ref Prov IMG DIAGNOSTIC IMAGING OR DERABLES Final Result * X-ray spine cervical 3 views or less (03/04/2017) Anatomical Region Laterality Modality MSK, Neuro, Spine, C-spine N/A Compu vernon Radiography us Not In System Ref Prov IMG DIAGNOSTIC IMAGING OR DERABLES Final Result * CT lumbar spine without contrast (11/21/2011) Anatomical Region Laterality Modality MSK, Neuro, Spine, L-spine, Spine Covera N/A Computed Tomography us Not In System Ref Prov IMG CT ORDERABLES Final R esult * CT lumbar spine without contrast (11/13/2011) Anatomical Region Laterality Modality MSK, Neuro, Spine, L-spine, Spine Covera N/A Computed Tomography us Not In System Ref Prov IMG CT ORDERABLES Final R esult * CT lumbar spine without contrast (02/28/2011) Anatomical Region Laterality Modality MSK, Neuro, Spine, L-spine, Spine Covera N/A Computed Tomography us Not In System Ref Prov IMG CT ORDERABLES Final R esult documented in this encounter Visit Diagnoses Not on filedocumented in this encounter Care Teams Air Export Logistics Manager Relationship Specialty Start Date End Date Norbert Jiang MD PCP - General Family Medicine 07/07/21 documented as of this encounter
--- OUTSIDE RECORDS SUMMARY | 2025-01-31 20:24 | XMS_ITS | Patient Health Record ---
Author Organization [facility] es Address [address] [address] Support Name Relationship Address Phone MAHIN MCCLELLAN Emergency Contact [address] [place] [address] [address] [place] [address] TAYLOR MCCLELLAN Guarantor Unknown [phone] Allergies Allergen (clinical drug ingredient) Drug/Non Drug Allergy documented on EMR Reaction Allergy Type Onset Date Status ADVANTIA (uncoded) swelling Allergy A ctive citalopram CELEXA (uncoded) Unknown Allergy Ac tive EFFEXOR (uncoded) total memory loss Allergy Active ELAVIL (uncoded) didn't feel well Allergy Active fentanyl FENTENAL (uncoded) felt sick Allergy A ctive succinylcholine Succinylcholine paralyzed Drug Allergy Active Reason For Referral No Information Medications Medication SIG (Take, Route, Frequency, Duration) Notes Start Date End Date Status Gabapentin 600 MG 1 tablet Orally 4 times a day Active Cyclobenzaprine HCl 10 MG 1 tablet Orall y Once a day Active Rexulti 3 MG 1 tablet daily Orall y Once a day for 30 day(s) Active busPIRone HCl 10 MG 1 tablet Orally Twic e a day for 30 days Active traZODone HCl 50 MG 1 tablet Orally 1 hr before bedtime Active Tramadol HCl 50 MG 1 tablet Orally ever y four hours as needed Active rOPINIRole HCl 0.25 MG 1 tablet Orally a s needed (prn) Active Depakote 500 MG 1 tablet orally once a day for 90 days Active Aspirin 81 81 MG 1 tablet orally once a day Active Abilify 10 MG 1 tablet Orally Once a day for 30 day(s) 12/23/2020 Not-Taking Norvasc 5 MG 1 tablet Orally once a day Active busPIRone HCl 10 MG TAKE 1 TABLET BY SHIRIN TWICE DAILY for 30 Active Plavix 75 MG 1 tablet orally once a day Active Simvastatin 20 MG 1 tablet Orally once a day Active Latuda 40 MG 1 tablets with food Orally Once a day for 30 day(s) 11/17/2020 Not-Taking Doxepin HCl 25 MG 1 capsule Orally twi ce a day (bid) as needed (prn) Active Diclofenac Sodium 75 MG 1 tablet Orally every four hours as needed Active Social History Tobacco Use: Social History Observation Description Date Details (start date - stop date) Current Smoker NA - NA Tobacco Screen: Question Answer Notes Are you a: current smoker When did you start smoking 17 How often do you smoke cigarettes? every day How many cigarettes a day do you smoke? 11-20 Alcohol Screening: Question Answer Notes Did you have a drink containing alcohol in the p ast year? No Points 0 Interpretation Negative Problems Problem Type SNOMED Code ICD Code Onset Dates Problem Status W/U Status Risk Notes Problem Anxiety (24043522) Anxiety (F41.9) Active confirmed Problem Bipolar 1 disorder, depressed (F31.9) Active confirmed Problem 634586697 BMI 31.0-31.9,adul t (Z68.31) Active confirmed Problem 209052227 BMI 30.0-30.9,adul t (Z68.30) Active confirmed Plan Of Treatment No Information Insurance Providers Payer Name Payer Address Payer Phone Subscriber Number Group Number Insured Name Patient Relationship to Insured Coverage Start Date Coverage End Date ANTH Primary [address] [place] [address] [phone] [id number] TAYLOR MCCLELLAN Self - patient is the insured 1 Medical (General) History Medical History History ICD Code BIPOLAR DIABETES HYPERTENSION Surgical History Surgery Date(Month/Year) BACK SURGERY BI-PASS OF HEART RIGHT SHOULDER- bone spurs and tear Hospitalization History Reason Date(Month/Year) intermediate stay
--- OUTSIDE RECORDS SUMMARY | 2025-01-31 20:24 | XMS_ITS | Patient Health Record ---
Author Organization [facility] Address [address] [place] [address] [place] [address] Care Team Providers Care Stitcher Utility Name Role Phone KayleyArnoldyordan Primary Care Provider UnavailWyatt Vidal Unavailable [phone] Reason For Referral No Information Encounters Encounter Location Date Provider Diagnosis [facility] [address] [facility] [place] [address] 02/12/2024 [facility] [address] [facility] [place] [address] 05/20/2024 [facility] [address] [facility] [place] [address] 08/12/2024 [facility] Plan Of Treatment No Information Insurance Providers Payer Name Payer Address Payer Phone Subscriber Number Group Number Insured Name Patient Relationship to Insured Coverage Start Date Coverage End Date Medicare Part B [id number] Part [facility] [place] [address] [id number] Rashi Alvarez Self - patient is the insured [employer] [address] [facility] [place] [address] [id number] Rashi Alvarez Self - patient is the insured
--- OUTSIDE RECORDS SUMMARY | 2025-01-31 20:24 | XMS_ITS | Clinical Summary ---
Author Organization [employer] [facility] tem Address [id number] [address] [place] [address] Care Team Providers Care Collector Of Internal Revenue Name Role Phone Norbert Jiang MD Primary Care Provider [phone] Allergies Active Allergy Reactions Criticality Noted Date Comments Citalopram Other (See Comments) 01/10/2021 Venlafaxine Other (See Comments) 06/03/2017 Memory loss Amitriptyline 03/04/2018 Agra sick Fentanyl 03/04/2018 Agra sick Metformin 11/29/2021 Weight gain Other Other (See Comments) 01/10/2021 Advantia - swelling, weight gain Succinylcholine Anaphylaxis High 01/10/2021 Paralyzed for 8 hours after surgery Medications * This document contains information received from the source organization and may not represent a complete record from that organization. aspirin 81 mg Take 81 mg by mouth daily. Active busPIRone (BUSPAR) 10 mg tablet Take 1 tablet (10 mg total) by mouth in the morning and at bedtime. 60 tablet 02/11/2022 Active lidocaine (LIDODERM) 5 % Place 3 patches on the skin in the morning. Remove & Discard patch within 12 hours or as directed by MD. 30 patch 02/11/2022 Active ferrous sulfate 325 (65 FE) mg EC tablet Take 325 mg by mouth in the morning and 325 mg in the evening. Take with meals. Active magnesium hydroxide (MILK OF MAGNESIA) 400 mg/5 mL suspension Take 30 mL by mouth nightly as needed. Active atorvastatin (LIPITOR) 40 mg tablet Take 1 tablet (40 mg total) by mouth in the morning. 30 tablet 06/07/2022 Active REXULTI 3 mg tablet Take 1 tablet (3 mg total) by mouth in the morning. 30 tablet 06/07/2022 Active rOPINIRole (REQUIP) 1 mg tablet Take 1 tablet (1 mg total) by mouth nightly as needed (as needed). 30 tablet 06/07/2022 Active divalproex sprinkle (DEPAKOTE SPRINKLES) 125 mg capsule Take 4 capsules (500 mg total) by mouth in the morning and 4 capsules (500 mg total) before bedtime. 200 capsule 06/07/2022 Active lamoTRIgine (LaMICtal) 100 mg tablet Take 1 tablet (100 mg total) by mouth in the morning. 30 tablet 06/07/2022 Active traZODone (DESYREL) 150 mg tablet Take 1 tablet (150 mg total) by mouth nightly. 30 tablet 06/07/2022 Active lisinopriL (PRINIVIL,ZESTR IL) 10 mg tablet Take 1 tablet (10 mg total) by mouth in the morning. 30 tablet 06/07/2022 Active carvediloL (COREG) 12.5 mg tablet Take 1 tablet (12.5 mg total) by mouth in the morning and 1 tablet (12.5 mg total) in the evening. Take with meals. 60 tablet 06/07/2022 Active hyoscyamine (ANASPAZ,LEVSIN ) 0.125 mg tablet Take 1 tablet (0.125 mg total) by mouth every 4 (four) hours as needed for cramping. 30 tablet 06/07/2022 Active clopidogreL (PLAVIX) 75 mg tablet Take 1 tablet (75 mg total) by mouth in the morning. 30 tablet 06/07/2022 Active mirtazapine (REMERON) 15 mg tablet Take 1 tablet (15 mg total) by mouth nightly. 30 tablet 06/07/2022 Active citalopram (CeleXA) 20 mg tablet Take 20 mg by mouth in the morning. Active amitriptyline (ELAVIL) 50 mg tablet Take 50 mg by mouth nightly. Active indomethacin (INDOCIN) 50 mg capsule Take 50 mg by mouth in the morning and 50 mg at noon and 50 mg in the evening. Take with meals. Active gabapentin (NEURONTIN) 300 mg capsuleIndicati ons:Disc displacement, lumbar Take 1 capsule (300 mg total) by mouth 3 (three) times a day. 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 Metabolic encephalopathy 06/14/2022 Generalized weakness 05/10/2022 Acute respiratory failure with hypoxia and hyper capnia 05/10/2022 History of mechanical ventilation 05/10/2022 Aspiration pneumonia due to gastric secretions 0 05/10/2022 CAP (community acquired pneumonia) 12/22/2021 Benign localized hyperplasia of prostate 022 Chronic diastolic heart failure 11/30/2021 Chronic kidney disease 11/30/2021 Bipolar disorder 11/30/2021 Insomnia 11/30/2021 Iron deficiency anemia 11/30/2021 Chronic back pain 11/30/2021 Restless legs syndrome 11/30/2021 Primary hypertension 11/30/2021 Hypotension 11/29/2021 Lumbar spondylosis 08/22/2021 Disorder of sacrum 08/22/2021 Lumbar neuritis 08/22/2021 Outbursts of anger 03/26/2019 Severe episode of recurrent major depressive disorder, without psychotic features 02/10/2019 Marital conflict 04/28/2018 Generalized anxiety disorder 06/03/2017 Tobacco use disorder 06/03/2017 Diabetes mellitus 11/25/2014 Hyperlipidemia 11/25/2014 Stenosis of carotid artery 11/25/2014 Resolved Problems Problem Noted Date Diagnosed Date Resolved Date Major depressive disorder, r ecurrent episode, moderate 06/03/2017 02/10/2019 Immunizations Immunization Administration Dates Next Due Covid-19, Mrna, Lnp-s, Pf, 3 0 Mcg/0.3 Ml Dose, Carter-sucrose 04/23/2022 H1N1 Inj Preservative Free 10/03/2009 Influenza High Dose Preservative Free IM 021 Influenza Whole 07/24/2010 Influenza, Injectable, Mdck, Preservative Free, Quad 06/23/2021 Influenza, Trivalent, Adjuvanted 08/30/2020 Pneumococcal Conjugate 13-Valent 11/29/2020,08/10 Family History Medical History Relation Name Comments Alcohol abuse Maternal Grandfather Relation Name Status Comments Maternal Grandfather Social History Tobacco Use Types Packs/Day Years Used Date Smoking Tobacco: Every Day Cigarettes 0.3 44 Smokeless Tobacco: Never Tobacco Cessation:Ready to Q uit: No; Counseling Given: No Comments:has tried patches and spoken with PCP Alcohol Use Standard Drinks/Week Comments Not Currently [...] on file Sexual Orientation Not on file Last Filed Vital Signs Vital Sign Reading Time Taken Comments Blood Pressure 150/74 07/31/2022 1:54 PM EST Pulse 85 07/31/2022 1:54 PM EST Temperature 36.2 C (97.2 F) 06/16/2022 11:03 AM EDT Respiratory Rate 20 07/31/2022 1:54 PM EST Oxygen Saturation 99% 06/28/2022 2:32 PM EDT Inhaled Oxygen Concentration - - Weight 97.5 kg (215 lb) 06/28/2022 2:32 PM EDT Height 180.3 cm (5' 11 ) 06/28/2022 2:32 PM EDT Body Mass Index 29.99 06/28/2022 2:32 PM EDT Plan of Treatment Health Maintenance Due Date Last Done Comments Depression Screening 1968 Tobacco Screening 1968 Zoster (Shingles) Vaccine (1 of 2) 2006 Abdominal Aortic Aneurysm (A AA) Screen 2021 Fall Risk Screening 2021 Adult BMI Screening 06/28/2023 06/28/2022 COVID-19 Vaccine (2023-2 5 season) 2024 04/23/2022, 12/20/2020, 11/26/2020 Influenza Vaccine 05/10/2025 06/23/2021, , 08/30/2020, Additional history exists DTaP,Tdap and Td Vaccines (2 - Tdap) 08/04/2032 08/04/2022 Goals Goal Patient Goal Type Associated Problems Recent Progress Patient-Stated? Author safe discharge to home General Yes Sandrita Franklin, RN Note: Evaluation of progress towards goal: safe transition from hospital to home with support of family and to return to outpatient therapy with [facility] General Yes Rossy Magallon, [employer] Note: Evaluation of progress towards goal: Discharge to [facility] pending acceptance Medical Devices Not on file Insurance [address] [place] [address] [facility] MEDICARE Advance Directives * Full Code (Latest Code Status on File) Date Activated Date Inactivated Comments 06/14/2022 2:17 AM 06/16/2022 6:12 PM * Full Code Date Activated Date Inactivated Comments 12/22/2021 11:45 AM 12/30/2021 4:14 PM * Full Code Date Activated Date Inactivated Comments 11/29/2021 4:40 PM 11/30/2021 6:31 PM Care Teams Collector Of Internal Revenue Relationship Specialty Start Date End Date Norbert Jiang MD PCP - General Family Medicine 07/07/21
--- OUTSIDE RECORDS SUMMARY | 2025-01-31 20:24 | XMS_ITS ---
Author Organization [facility] Care Team Providers Care Livestock Farmers Name Role Phone Sonali Hutchison Unavailable Unavailable Roman Gore Unavailable Unavailable Ebenezer Hopkins Unavailable Unavailable Jenniffer Elder Unavailable Unavaila Edith Daniels Unavailable Unavailable Jaqueline Moreno Unavailable Unavailreji Sandra GM MOBILEElisa Unavailable Unavailable Bakalberto, Marilyn Unavailable Unavailable Vianey Zaldivar Unavailable Unavailable Zandra KOCHCOdilia Unavailable Unavailable Allergies and adverse reactions Code CodeSystem Substance Reaction Severity StartDate Concern Status 32019 RXNORM Succinylcholine Severe 11/06/2023 activ e 17435 RXNORM Simvastatin Unknown 11/06/2023 active Shell Fish Unknown 05/02/2023 active Fish Unknown 05/02/2023 active 4337 RXNORM fentaNYL Unknown 11/06/2023 active Effexor Unknown 11/06/2023 active CeleXA Unknown 11/06/2023 active Amitriptyline Unknown 11/06/2023 active Care Team Name Role Address Phone Organization Dates Ebenezer Hopkins [address], [address], [place] (Office): : [facility] 11/06/2023 - 11/19/2023 Sonali Hutchison [address] [place] [address] [place], [address], [place] (Office): [facility] 11/06/2023 - 11/19/2023 Roman Gore [address], [address], [place] (Office): : : [facility] 11/06/2023 - 11/19/2023 Jenniffer Elder [address] [place], [address], [place] (Office): : : [facility] 11/06/2023 - 11/19/2023 Edith Balderrama [address] [place], [address], [facility] (Cell): : [facility] 11/06/2023 - 11/19/[address], [address], [facility] (Cell): [facility] 11/06/2023 - 11/19/2023 Elisa Sandra [employer] [address] [place], [address], [facility] (Office): : : [facility] 11/06/2023 - 11/19/2023 Marilyn Whyte [facility] States (Cell): [facility] 11/06/2023 - 11/19/2023 Vianey Zaldivar [address] [place], [address], [place] States (Office): : [facility] 11/06/2023 - 11/19/2023 Odilia De Paz [employer] [address] [address], [place], [address], [place] (Cell): : : [facility] 11/06/2023 - 11/19/2023 Immunizations Immunization Status Vaccine Details Vaccine Code CodeSystem Yan e Notes Influenza cancelled Influenza, high-dose, split virus, quadrivalent, injectable, preservative free 197 CVX created date: 11/19/2023 consent date: 11/19/2023 Problems Problem # Description Date of onset Resolved Date Code CodeSystem Concern Status 1 BENIGN PROSTATIC HYPERPLASIA WITHOUT LOWER URINARY TRACT SYMPTOMS 11/06/[address] active 2 CHRONIC OBSTRUCTIVE PULMONARY DISEASE, UNSPECIFIED 11/06/[address] active 3 GASTRO-ESOPHAGEAL REFLUX DISEASE WITHOUT ESOPHAGITIS 11/06/[address] active 4 MAJOR DEPRESSIVE DISORDER, RECURRENT SEVERE WITHOUT PSYCHOTIC FEATURES 11/06/[address] active 5 NICOTINE DEPENDENCE, UNSPECIFIED, UNCOMPLICATED 11/06/[address] active 6 SUICIDAL IDEATIONS 11/06/[address] active 7 DEPENDENCE ON SUPPLEMENTAL OXYGEN 04/23/20 23 05/15/[address] completed 8 HYPOXEMIA 04/23/20 23 05/15/[address] completed 9 HEART FAILURE, UNSPECIFIED 04/21/[address] active 10 HYPERTENSIVE HEART DISEASE WITH HEART FAILURE 04/21/[address] active 11 OTHER ARTIFICIAL OPENINGS OF URINARY TRACT STATUS 04/21/20 23 05/15/[address] completed 12 RETENTION OF URINE, UNSPECIFIED 04/21/20 23 05/15/[address] completed 13 ATHEROSCLEROTIC HEART DISEASE OF [place] CORONARY ARTERY WITHOUT ANGINA PECTORIS 04/19/[address] active 14 ESSENTIAL (PRIMARY) HYPERTENSION 04/19/20 23 04/21/[address] completed 15 LOW BACK PAIN, UNSPECIFIED 04/19/[address] active 16 MAJOR DEPRESSIVE DISORDER, RECURRENT SEVERE WITHOUT PSYCHOTIC FEATURES 04/19/20 23 05/15/[address] completed 17 SUICIDAL IDEATIONS 04/19/20 23 05/15/[address] completed Reason for Referral No Reasons for Referral Entered Social History Social History Observation Description Start Date End Date Code Code System Current Smoking Status Tobacco smoking consumption unknown 517615753 SNOMED CT Sex Assigned At Male 1955 [address]-5 [facility] Gender Identity Vital Signs Code Code System Vitals Name Values and Units Timing Information 47565-5 [facility] Pain Level Value=4.0 11/19/2023 9279-1 [facility] Respiratory Rate Value=20.0 Units=/m in 11/19/2023 10188-4 [facility] O2 % BldC Oximetry Value=94.0 Units= % 11/19/2023 8867-4 [facility] Heart rate Value=74.0 Units=/min 08/2024 8310-5 [facility] Body Temperature Value=96.5 Units= F 11/19/2023 8462-4 [facility] Blood Pressure-Diastolic Value=56 Un its=mmHg 11/19/2023 8480-6 [facility] Blood Pressure-Systolic Zvjrs=979 Un its=mmHg 11/19/2023 19278-7 [facility] Weight Axotq=395.3 Units=Lbs 03/2024 8302-2 [facility] Height Value=71.0 Units=Inches 04/20/2023
--- OUTSIDE RECORDS SUMMARY | 2025-01-31 20:24 | XMS_ITS | Clinical Summary ---
Author Organization [facility] Address [address] [place] [address] Care Team Providers Care Noise Tester Name Role Phone Bro Da Silva MD Primary Care Provider + Allergies Active Allergy Reactions Criticality Noted Date Comments Amitriptyline Hcl 05/18/2014 Other reaction(s): Unknown Fentanyl 12/26/2016 unknown Venlafaxine Other (See Comments) 05/13/2014 Medications clopidogrel (PLAVIX) 75 MG tablet Take 1 tablet by mouth daily Active tamsulosin (FLOMAX) 0.4 MG capsule Take 1 capsule by mouth daily Active gabapentin (NEURONTIN) 800 MG tablet Take 600 mg by mouth 4 times daily. Active LORazepam (ATIVAN) 2 MG tablet Take 2 mg by mouth 3 times daily Active metoprolol tartrate (LOPRESSOR) 50 MG tablet Take 50 mg by mouth Active lisinopril (PRINIVIL;ZESTRIL) 20 MG tablet Take 20 mg by mouth daily Active UNABLE TO FIND nucyenta for pain Active aspirin 81 MG chewable tablet Take 1 tablet by mouth daily Active METFORMIN HCL PO Take 1 tablet by mouth 2 times daily Active albuterol sulfate HFA 108 (90 BASE) MCG/ACT inhaler Inhale 2 puffs into the lungs every 6 hours as needed for Shortness of Breath 1 Inhaler 3 7 Active tiZANidine (ZANAFLEX) 4 MG capsule Take 1 capsule by mouth 2 times daily 20 capsule 7 Active amitriptyline (ELAVIL) 100 MG tablet Take 1 tablet by mouth nightly Active atorvastatin (LIPITOR) 40 MG tablet Take 1 tablet by mouth daily Active buPROPion (WELLBUTRIN XL) 300 MG extended release tablet Take 1 tablet by mouth every morning Active celecoxib (CELEBREX) 200 MG capsule Take 1 capsule by mouth daily Active furosemide (LASIX) 20 MG tablet Take 1 tablet by mouth daily 3 Active lamoTRIgine (LAMICTAL) 200 MG tablet Take 1 tablet by mouth daily Active mirtazapine (REMERON QUEENIE-TAB) 15 MG disintegrating tablet Take 3 tablets by mouth nightly Active nicotine (NICODERM CQ) 21 MG/24HR Place 1 patch onto the skin every 24 hours Active brexpiprazole (REXULTI) 3 MG TABS tablet Take 1 tablet by mouth daily Active traZODone (DESYREL) 100 MG tablet Take 1 tablet by mouth nightly Active busPIRone (BUSPAR) 10 MG tablet Take 1 tablet by mouth 2 times daily Active carvedilol (COREG) 12.5 MG tablet Take 1 tablet by mouth 2 times daily (with meals) Active divalproex (DEPAKOTE) [address] tablet Take 1 tablet by mouth 2 times daily Active risperiDONE (RISPERDAL) 1 MG tablet Take 1 tablet by mouth 2 times daily Active hydrALAZINE (APRESOLINE) 25 MG tablet Take 1 tablet by mouth 3 times daily Active hydrOXYzine HCl (ATARAX) 50 MG tablet Take 1 tablet by mouth 3 times daily as needed for Itching Active acetaminophen (TYLENOL) 500 MG tablet Take 1 tablet by mouth every 6 hours as needed for Pain Active Active Problems Problem Noted Date Diagnosed Date Chronic coronary artery disease 11/25/2014 Carotid artery narrowing 11/25/2014 DDD (degenerative disc disease), lumbosacral Diabetes mellitus 11/25/2014 Hyperlipidemia 11/25/2014 BP (high blood pressure) 11/25/2014 Adiposity 11/25/2014 Angiopathy, peripheral 11/25/2014 Low back pain 11/25/2014 Family History Medical History Relation Name Comments Seizures Brother x2 COPD Mother Heart Disease Mother Other Mother PVD Seizures Mother Mental Illness Sister x1 No Known Problems Son x3 Relation Name Status Comments Brother x2 Alive Father Other unknown Mother Sister x1 Alive Son x3 Alive Social History Tobacco Use Types Packs/Day Years Used Date Smoking Tobacco: Every Day Cigarettes 1.5 44 Smokeless Tobacco: Never Alcohol Use Standard Drinks/Week Comments No 0 (1 standard drink = 0.6 oz pur e alcohol) Sex and Gender Information Value Date Recorded Sex Assigned at Not on file Legal Sex Male 9:02 AM EST Gender Identity Not on file Sexual Orientation Not on file Last Filed Vital Signs Vital Sign Reading Time Taken Comments Blood Pressure 160/71 04/25/2023 9:00 PM EDT Pulse 72 04/25/2023 2:34 PM EDT Temperature 36.9 C (98.5 F) 04/25/2023 2:34 PM EDT Respiratory Rate 18 04/25/2023 2:34 PM EDT Oxygen Saturation 95% 04/25/2023 9:00 PM EDT Inhaled Oxygen Concentration - - Weight 107 kg (236 lb) 01/01/2017 6:05 AM EDT Height 180.3 cm (5' 11 ) 01/01/2017 6:05 AM EDT Body Mass Index 32.92 01/01/2017 6:05 AM EDT Plan of Treatment Health Maintenance Due Date Last Done Comments A1C test (Diabetic or Prediabetic) 1966 Diabetic foot exam 1966 Depression Screen 1968 Diabetic Alb to Cr ratio (uACR) test 1974 Diabetic retinal exam 1974 Hepatitis C screen 1974 Colonoscopy 2001 Colorectal Cancer Screen 2001 FIT/FOBT: Average risk 2001 Fecal-DNA (Cologuard): Average risk 2001 Sigmoidoscopy/CT colonography 2001 Lung Cancer Screening &/or Counseling 2006 Shingles vaccine (1 of 2) 2006 Respiratory Syncytial Virus (RSV) or age 60 yrs+ (1 - Risk 60-74 years 1-dose series) 2016 Pneumococcal 50+ years Vaccine (2 of 2 - PPSV23) 01/24/2021 11/29/2020, 08/30/2020 AAA screen 2021 Annual Wellness Visit (Medicare) 08/05/2023 GFR test (Diabetes, CKD 3-4, OR last GFR 15-59) 04/25/2024 04/25/2023, 12/26/2016, 02/05/2013, Additional history exists Lipids 04/26/2024 04/26/2023 COVID-19 Vaccine ( - season) 2024 04/23/2022, 12/20/2020, 11/26/2020 Flu vaccine (Season Ended) 04/09/202506/23, 11/29/2020, 08/30/2020, Additional history exists DTaP/Tdap/Td vaccine (2 - Tdap) 08/04/2032 08/04/2022 Pneumococcal 0-49 years Vaccine Discontinued 11/29/2020, 08/30/2020 Hepatitis A vaccine Aged Out No longe r eligible based on patient's age to complete this topic Hepatitis B vaccine Aged Out No longe r eligible based on patient's age to complete this topic Hib vaccine Aged Out No longer eligi ble based on patient's age to complete this topic Meningococcal (ACWY) vaccine Aged Out No longer eligible based on patient's age to complete this topic Meningococcal B vaccine Aged Out No l onger eligible based on patient's age to complete this topic Polio vaccine Aged Out No longer elig ible based on patient's age to complete this topic Procedures Procedure Name Priority Date/Time Associated Diagnosis Comments LIPID PANEL Routine 04/26/2023 7:50 AM EDT BASIC METABOLIC PANEL STAT 04/25/2023 2:44 PM EDT from Last 3 Months or Most Recently Relevant to Health Maintenance Results * (ABNORMAL) Lipid Panel (04/26/2023 7:50 AM EDT) Cholesterol 171 <200 mg/dL 04/26/2023 7:50 AM EDT [facility] Comment: Cholesterol Guidelines: <200 Desirable 200-240 Borderline >240 Undesirable HDL 30(L) >40 mg/dL 04/26/2023 7:50 AM EDT [facility] Comment: HDL Guidelines: <40 Undesirable 40-59 Borderline >59 Desirable LDL Cholesterol 112 0 - 130 mg/dL 04/26/2023 7:50 AM EDT [facility] Comment: LDL Guidelines: <100 Desirable 100-129 Near to/above Desirable 130-159 Borderline >159 Undesirable Direct (measured) LDL and calculated LDL are not interchangeable tests. Chol/HDL Ratio 5.7(H) <5 04/26/2023 7:50 AM EDT [facility] Comment: Triglycerides 143 <150 mg/dL 04/26/2023 7:50 AM EDT [facility] Comment: Triglyceride Guidelines: <150 Desirable 150-199 Borderline 200-499 High >499 Very high Based on AHA Guidelines for fasting triglyceride, June 2012. 04/26/2023 7:50 AM EDT us Ebenezer Hopkins MD CHEMISTRY ORDERABLES Final Resul t [facility] [address] [place] [address], [facility] [phone] [facility] [address] [place], [place] [address] [place] [phone] * (ABNORMAL) BMP (04/25/2023 2:44 PM EDT) Glucose 87 70 - 99 mg/dL 04/25/2023 2:44 PM EDT [facility] BUN 18 8 - 23 mg/dL 04/25/2023 2:44 PM EDT [facility] Creatinine 1.3(H) 0.7 - 1.2 mg/dL 04/25/2023 2:44 PM EDT [facility] Est, Glom Filt Rate >60 >60 mL/min/1.7 3m2 04/25/2023 2:44 PM EDT [facility] Comment: These results are not intended for [...] following therapy that affects renal tubular secretion. BUN/Creatinine Ratio 14 9 - 20 04/25/2023 2:44 PM EDT [facility] Calcium 9.3 8.6 - 10.4 mg/dL 04/25/2023 2:44 PM EDT [facility] Sodium 139 135 - 144 mmol/L 04/25/2023 2:44 PM EDT [facility] Potassium 3.9 3.7 - 5.3 mmol/L 04/25/2023 2:44 PM EDT [facility] Chloride 101 98 - 107 mmol/L 04/25/2023 2:44 PM EDT [facility] CO2 25 20 - 31 mmol/L 04/25/2023 2:44 PM EDT [facility] Anion Gap 13 9 - 17 mmol/L 04/25/2023 2:44 PM EDT [facility] BLOOD SPECIMEN / Unknown 04/25/2023 2:44 PM EDT 04/25/2023 3:17 PM EDT Audra Serrano DO CHEMISTRY ORDERABLES Final Re sult [facility] [address] [id number] [place] [phone] from Last 3 Months or Most Recently Relevant to Health Maintenance Insurance [address] [place] [address] [facility] OUT OF STATE MEDICARE * Guarantor: Rashi Alvarez Account Type Relation to Patient Date of Phone Billing Address Personal/Family Self 1955 [address] [place] [address] Advance Directives * Full Code (Latest Code Status on File) Date Activated Date Inactivated Comments 01/01/2017 11:00 AM 01/01/2017 1:57 PM Care Teams Noise Tester Relationship Specialty Start Date End Date Bro Da Silva MD PCP - General Family Medicine 12/26/16
--- OUTSIDE RECORDS SUMMARY | 2025-01-31 20:25 | XMS_ITS | Clinical Summary ---
Author Organization [facility] Address [address] [place], [place] [id number] Care Team Providers Care Hand Upper And Bottom Lacer Name Role Phone Bro Da Silva MD Primary Care Provider [phone] Norbert Jiang MD Unavailable [phone] Nicol Ocampo PA-C Unavailable Nicol Ocampo(Historical) CAROL Unavailable Unavailable [address] Unavailable [address] Unavailable Allergies Active Allergy Reactions Criticality Noted Date Comments Venlafaxine Unknown 05/13/2014 Amitriptyline Hcl Unknown 05/18/2014 Medications tamsulosin (FLOMAX) 0.4 mg cp24 Take 0.4 mg by mouth once daily. Active atorvastatin (LIPITOR) 40 mg tablet Take 40 mg by mouth once daily. Active zolpidem (AMBIEN) 10 mg tab Take by mouth daily at bedtime. Active LORazepam (ATIVAN) 2 mg tab Take by mouth three times daily. Active lisinopril 20 mg tablet Take 20 mg by mouth once daily. Active metoprolol tartrate, short acting, 50 mg tablet Take 50 mg by mouth twice daily. Active gabapentin (NEURONTIN) 800 mg tablet Take 800 mg by mouth three times daily. Active nitroglycerin 400 mcg/spray spray Dissolve 1 [place] under the tongue every 5 minutes as needed. Active clopidogrel (PLAVIX) 75 mg tablet Take 75 mg by mouth once daily. Active tiZANidine HCl (ZANAFLEX) 4 mg capsule Take 4 mg by mouth twice daily. Active albuterol HFA (PROAIR HFA) 90 mcg/actuation inhaler Inhale 2 Puffs as instructed every 4 hours as needed. Active furosemide (LASIX) 40 mg tablet Take 40 mg by mouth once daily. Active ramipril 10 mg capsule Take 10 mg by mouth once daily. Active ezetimibe (ZETIA) 10 mg tablet Take 10 mg by mouth once daily. Active oxyCODONE-aceta minophen 10-325 mg tablet Take 1 tablet by mouth every 8 hours as needed. Active traMADol 50 mg tablet Take 50 mg by mouth twice daily. Active FENTANYL CITRATE-0.9 % NACL/PF (FENTANYL CITRATE IN NS, PF,) 10 mcg/mL resv by INJECTION(UNSPE CIFIED PARENTERAL ROUTES) route. Active Active Problems Problem Noted Date Diagnosed Date PAD (peripheral artery disease) 11/25/2014 CAD (coronary artery disease) 11/25/2014 Carotid stenosis 11/25/2014 DDD (degenerative disc disease), lumbosacral Severe low back pain 11/25/2014 Hypertension 11/25/2014 Hyperlipidemia 11/25/2014 DM (diabetes mellitus) 11/25/2014 Obesity 11/25/2014 Smoker 11/25/2014 Family History Medical History Relation Comments epilepsy [Other] Brother 3 bipolar [Other] Brother 4 Heart Mother CAD Relation Status Comments Brother 1 Alive Brother 2 Alive Brother 3 Brother 4 Mother Social History Tobacco Use Types Packs/Day Years Used Date Smoking Tobacco: Every Day Cigarettes 1 41 Smokeless Tobacco: Never Comments:Started nicotine tr ansdermal patch 02/01/09. Smoked 1PPD for 20 years Alcohol Use Standard Drinks/Week Comments No 0 (1 standard drink = 0.6 oz pur e alcohol) Sex and Gender Information Value Date Recorded Sex Assigned at Not on file Legal Sex Male 9:25 AM EST Gender Identity Not on file Sexual Orientation Not on file Last Filed Vital Signs Vital Sign Reading Time Taken Comments Blood Pressure 184/91 12/31/2014 1:31 PM EDT Pulse 82 12/31/2014 1:31 PM EDT Temperature 36.6 C (97.9 F) 11/25/2014 9:24 AM EDT Respiratory Rate 16 05/18/2014 10:04 AM EDT Oxygen Saturation 97% 11/25/2014 9:24 AM EDT Inhaled Oxygen Concentration - - Weight 116.1 kg (256 lb) 11/25/2014 9:24 AM EDT Height 180.3 cm (5' 11 ) 12/31/2014 1:31 PM EDT Body Mass Index 35.7 11/25/2014 9:24 AM EDT Plan of Treatment Health Maintenance Due Date Last Done Comments Abdominal Aortic Aneurysm Screening 1956 Anxiety Screening 1974 Depression Screening 1974 Hepatitis C Screening 1974 DTaP,Tdap,Td Vaccine (1 - Tdap) [address] Colonography 2001 Cologuard (FIT-DNA) 2001 Colonoscopy 2001 Colorectal Cancer Screening 2001 Fecal Occult Blood 2001 Prostate Cancer Screening Discussion 2001 Sigmoidoscopy 2001 Pneumococcal Vaccine: 50+ (1 of 1 - PCV) 2006 Shingrix Vaccine (1 of 2) 2006 Diabetes Screening 06/20/2013 06/20/2010, 0 01/19/2010, 02/04/2009 Covid-19 Vaccine ( - season) 2024 Advance Directive Discussion 09/09/2024 Influenza Vaccine (Season Ended) 2025 RSV Vaccine (1 - 1-dose 75+ series) 2031 Medical Devices Implanted Type Area Patient Service Representative Device Identifier Shelf Expiration Date Model / Serial / Lot Chj-Ha-[id number] Implant - [id number] Implanted:Qty: 2 on 06/26/2010 at [facility] Implant Back ADVANCED [employer] SYST 02/25/2012 [employer] / / [id number] Description:extension 60cm Dvn-Ts-Y-Kind Implant - [id number] Implanted:Qty: 1 on 06/26/2010 at [facility] Implant ADVANCED NEUROMODULATION SYST 1112 / / Description:tunneler tool Procedures Procedure Name Priority Date/Time Associated Diagnosis Comments BASIC METABOLIC PANEL Routine 06/20/2010 2:35 PM EDT from Last 3 Months or Most Recently Relevant to Health Maintenance Results * (ABNORMAL) BASIC METABOLIC PNL (06/20/2010 2:35 PM EDT) Glucose 157(H) 65 - 100 mg/dL [facility] BUN 9(L) 10 - 25 mg/dL [facility] Creatinine 0.82 0.70 - 1.40 mg/dL [facility] Sodium 138 135 - 146 mmol/L [facility] Potassium 3.6 3.5 - 5.0 mmol/L [facility] Chloride 102 98 - 110 mmol/L [facility] CO2 23 23 - 32 mmol/L [facility] Calcium 9.4 8.5 - 10.5 mg/dL [facility] Glom Filtration Rate (AA) >60 >60 [facility] Glom Filtration Rate (JOSÉ MIGUEL) >60 >60 . [facility] Blood specimen (specimen) BLOOD SPECIMEN / Unknown 06/20/2010 2:35 PM EDT 06/20/2010 2:36 PM EDT [facility] Final Result Performing Organization Address City/State/[facility] Co de Phone Number [facility] [id number] [phone] from Last 3 Months or Most Recently Relevant to Health Maintenance Insurance [address] [place] [address] BLUE CARD [employer] MEDICARE Care Teams Hand Upper And Bottom Lacer Relationship Specialty Start Date End Date Bro Da Silva MD PCP - General Family Medicine 05/04/14 Norbert Jiang MD Referring Family Medicine 08/09/22 Nicol Ocampo PA-C [address] [place] [address] Referring Pain Management 08/09/22 Nicol Ocampo(Historical)CAROL [address] [place] [address] Referring 10/08/[address] [address] Referring Anesthesiology 11/22/[address] [address] Referring Anesthesiology 11/22/22
--- OUTSIDE RECORDS SUMMARY | 2025-01-31 20:25 | XMS_ITS | Encounter Summary ---
Author Organization [facility] Address [id number] [address] [place] [address] Care Team Providers Care Brass Wind Instrument Maker Name Role Phone Norbert Jiang MD Primary Care Provider [phone] Encounter Details Date Type Department Care Team (Late st Contact Info) Description 03/27/2022 Telephone [facility] Pul[facility] [address] [place] [id number] Zara Vizcarra MD [address] [place], [place] [id number] Social History Tobacco Use Types Packs/Day Years Used Date Smoking Tobacco: Every Day Cigarettes 0.3 44 Smokeless Tobacco: Never Comments:has tried patches [...] have Coronavirus / COVID-19? No / Unsure 03/21/2022 7:38 AM EDT documented as of this encounter Miscellaneous Notes * Telephone Encounter - Arabella Koebel - 03/27/2022 3:25 PM EDT [facility] just called and sent over a request surgery clearance for patient on 03/21 It's in his chart under letters And is requesting that it be filled out and returned andrea so patient can be cleared For pain surgery Please advise * Telephone Encounter - Carol Ann Jo DO - 03/27/2022 3:25 PM EDT This patient is only established with us from inpatient stay in December. Dr. Vizcarra will be best able to assess patient (if this is needed for their procedure) at her office appt with him on 04/02 to most accurately determine his current condition. * Telephone Encounter - Arabella Gresham - 03/27/2022 3:25 PM EDT Called and advised patient's daughter documented in this encounter Plan of Treatment Not on file documented as of this encounter Goals Goal Patient Goal Type Associated Problems Recent Progress Patient-Stated? Author safe discharge to home General Yes Sandrita Franklin, RN Note: Evaluation of progress towards goal: safe transition from hospital to home with support of family and to return to outpatient therapy with [facility] in [place], [place] documented as of this encounter Visit Diagnoses Not on filedocumented in this encounter Care Teams Brass Wind Instrument Maker Relationship Specialty Start Date End Date Norbert Jiang MD PCP - General Family Medicine 07/07/21 documented as of this encounter
[2025-01-31] MEDS: OXYCODONE HCL/ACETAMINOPHEN 5MG/325MG 1 TAB PO (20:26)
--- OUTSIDE RECORDS SUMMARY | 2025-01-31 20:27 | XMS_ITS | Encounter Summary ---
Author Organization [facility] Address [address] [place] [address] Care Team Providers Care Senior It Security Analyst Name Role Phone Ebenezer Hopkins MD Primary Care Provider Unavailabl e Encounter Details Date Type Department Care Team (Late st Contact Info) Description 09/14/2024 Abstract [facility] [address] [place] [id number] Unallocated, [facility] Provider, [address] [place] [address] Social History Tobacco Use Types Packs/Day Years Used Date Smoking Tobacco: Never Assessed Sex and Gender Information Value Date Recorded Sex Assigned at Not on file Legal Sex Male 6:57 PM EDT Gender Identity Not on file Sexual Orientation Not on file documented as of this encounter Plan of Treatment Not on file documented as of this encounter Visit Diagnoses Not on filedocumented in this encounter Care Teams Senior It Security Analyst Relationship Specialty Start Date End Date Ebenezer Hopkins MD [address] [place] [address] PCP - General Psychiatry 04/26/23 documented as of this encounter
--- OUTSIDE RECORDS SUMMARY | 2025-01-31 20:27 | XMS_ITS | Encounter Summary ---
Author Organization [employer] [facility] Address [id number] [address] [place] [address] Care Team Providers Care Communications Scientist Name Role Phone Norbert Jiang MD Primary Care Provider [phone] Encounter Details Date Type Department Care Team (Late st Contact Info) Description 07/15/2022 Orders Only [email or web address] [address] [place] [phone] Transcribe, Orders Support User Pain (Primary Dx) Social History Tobacco Use Types Packs/Day Years [...] have Coronavirus / COVID-19? No / Unsure 07/05/2022 3:57 PM EDT documented as of this encounter Plan of Treatment Not on file documented as of this encounter Goals Goal Patient Goal Type Associated Problems Recent Progress Patient-Stated? Author safe discharge to home General Yes Sandrita Franklin, RN Note: Evaluation of progress towards goal: safe transition from hospital to home with support of family and to return to outpatient therapy with [facility] in [place], [place] SNF General Yes Rossy Magallon, WHIZZER HAND Note: Evaluation of progress towards goal: Discharge to [facility] pending acceptance documented as of this encounter Results * CT brain without contrast (07/15/2022 12:50 PM EST) us Scanning Provider External IMG CT ORDERABLES Fin al Result documented in this encounter Visit Diagnoses Diagnosis Pain- Primary Generalized pain documented in this encounter Care Teams Communications Scientist Relationship Specialty Start Date End Date Norbert Jiang MD PCP - General Family Medicine 07/07/21 documented as of this encounter
--- OUTSIDE RECORDS SUMMARY | 2025-01-31 20:27 | XMS_ITS | Patient Health Record ---
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 Name Role Phone Nathaniel Jiang Primary Care Provider [phone] NORBERT JIANG Unavailable [phone] Allergies Allergen (clinical drug ingredient) Drug/Non Drug Allergy documented on EMR Reaction Allergy Type Onset Date Status amitriptyline Amitriptyline HCl Unknown Drug Allergy Active Duragesic-25 Unknown Drug Allergy Acti ve Effexor Unknown Drug Allergy Active succinylcholine Succinylcholine Chloride Unknown Drug Allergy Active simvastatin Simvastatin Unknown Drug Allergy Act renée fentanyl Fentanyl Unknown Drug Allergy Active Results Component Value Reference Range Notes NM bindu perf SPECT rest str Reviewed date:02/12/2024 08:28:51 PM Interpretation: Performing Lab: Notes/Report: Source Facility: [place] [address] [place] [address] Nuclear Medicine Report Signed Patient: TAYLOR MCCLELLAN MR#: [id number] : 1955 Acct:[id number] Age/Sex: 68 / M ADM Date: 02/11/24 Loc: NM Attending Dr: Norbert Jiang M.D. Ordering Physician: Norbert Jiang M.D. Date of Service: 02/11/24 Procedure(s): NM bindu perf SPECT rest str Accession Number(s): [id number] cc: Norbert Jiang M.D. Patient Name: TAYLOR MCCLELLAN MR#: [id number] : 1955 Exam Date: 02/11/2024 Ordering Doctor: DR NORBERT JIANG . RADIOLOGY REPORT PROCEDURE: NM BINDU PERF SPECT REST STR COMPARISON: None. INDICATIONS: PRE PROCEDURE CARDIOVASCULAR EXAM, HISTORY OF CABG TECHNIQUE: Exam Description: Stress/Rest one day protocol gated SPECT Rest Imagin.9 mCi Tc-99m Cardiolite IV on 02/11/2024 Stress Imaging 30.2 mCi Tc-99m Cardiolite IV on 02/11/2024 Exercise Protocol: 0.4 mg Lexiscan given IV Heart Rate (bpm): Rest: 56 Max: 68 PMHR: 44 Blood Pressure: Rest: 158/78 Max: 158/78 Symptoms: Rest and peak stress ECG findings were normal and the exercise portion of the study was normal per attending physician Dr. Solorzano . For more details please see separate cardiac stress test report. FINDINGS: QUALITY OF STUDY: Excellent. PERFUSION DEFECT: LOCATION: Basal inferior. Mid-inferior. Apical inferior. SIZE: Medium (3-4 segments). SEVERITY: Moderate. TYPE: Mixed. WALL MOTION: Moderate hypokinesis: LV SIZE: Normal. 124 mL. TID / TCD: Yes; 1.3 LVEF: Abnormal. Calculated EF 48%. SUMMARY: Myocardial perfusion imaging study has ABNORMAL findings. CONCLUSION: 1. Moderately decreased perfusion of the inferior wall with minimal reversibility during rest imaging. 2. Global moderate hypokinesis of the left ventricle. 3. Abnormal transient ischemic dilation of left ventricle. 4. Abnormal, low ejection fraction of 48%. 5. Left ventricle size is 124 mL (upper limits of normal is 125). Dictated by: Liam Adorno M.D. on 02/12/2024 at 14:19 Approved by: Liam Adorno M.D. on 02/12/2024 at 14:24 Dictated By: Liam Adorno M.D. Signed By: 02/12/24 1425 DD/ 1424 TD/TT: Newsagent: [place] [address] Nuclear Medicine Report Signed Patient: PEDRO LUIS MCCLELLAN PH MR#: [id number] : 1955 Acct:[id number] Age/Sex: 68 / M ADM Date: 02/11/24 Loc: NM Attending Dr: Dixie Jiang M.D. Ordering Physician: Norbert Jiang M.D. Date of Service: 02/11/24 Procedure(s): NM bindu perf SPECT rest str Accession Number(s): [id number] cc: Norbert Jiang M.D. Patient Name: TAYLOR MCCLELLAN MR#: [id number] : 1955 Exam Date: 02/11/2024 Ordering Doctor: DR NORBERT JIANG . RADIOLOGY REPORT PROCEDURE: NM BINDU PE RF SPECT REST STR COMPARISON: None. INDICATIONS: PRE PROCEDURE CARDIOVASCULAR EXAM, HISTORY OF CABG TECHNIQUE: Exam Description: Stress/Rest one day protocol gated SPECT Rest Imagin.9 mC i Tc-99m Cardiolite IV on 02/11/2024 Stress Imaging 30.2 mCi Tc-99m Cardiolite IV on 02/11/2024 Exercise Protocol: 0 .4 mg Lexiscan given IV Heart Rate (bpm): Re st: 56 Max: 68 PMHR: 44 Blood Pressure: Rest : 158/78 Max: 158/78 Symptoms: Rest and peak stress ECG findings were normal and the exercise portion of the study was normal per attending physician Dr. Solorzano . For more details please see separate cardiac stress test report. FINDINGS: QUALITY OF STUDY: Excellent. PERFUSION DEFECT: LOCATION: Basal infe rior. Mid-inferior. Apical inferior. SIZE: Medium (3-4 segments). SEVERITY: Moderate. TYPE: Mixed. WALL MOTION: Moderat e hypokinesis: LV SIZE: Normal. 124 mL. TID / TCD: Yes; 1.3 LVEF: Abnormal. Calculated EF 48%. SUMMARY: Myocardial perfusion imaging study has ABNORMAL findings. CONCLUSION: 1. Moderately decrea sed perfusion of the inferior wall with minimal reversibility during rest imaging. 2. Global moderate hypokinesis of the left ventricle. 3. Abnormal transien t ischemic dilation of left ventricle. 4. Abnormal, low eje ction fraction of 48%. 5. Left ventricle si ze is 124 mL (upper limits of normal is 125). Dictated by: Liam Adorno M.D. on 02/12/2024 at 14:19 Approved by: Liam Adorno M.D. on 02/12/2024 at 14:24 Dictated By: Liam Adorno M.D. Signed By: 02/12/24 1425 DD/ 1424 TD/TT: Newsagent: PROF JENNIFER Stiles ([facility]) Reviewed date:02/20/2024 08:13:30 PM Interpretation: Performing Lab: Notes/Report: [facility] , Sodium 142 136-145 mmol/L Potassium 4.8 3.5-5.1 mmol/L Chloride 105 98-107 mmol/L Carbon Dioxide 29.8 21.0-32.0 mmol/L Anion Gap 12.0 Glucose 84 74-106 mg/dL Blood Urea Nitrogen 13.0 7.0-18.0 mg/dL Creatinine 1.11 0.70-1.30 mg/dL Estimated GFR ( Aura >60 >=60 Estimated GFR (Non- Sandy >60 >=60 BUN Creatinine Ratio 11.7 Calcium 8.8 8.5-10.1 mg/dL Performing Lab: see note ML - [facility] LB CBC AUTO DIFF Reviewed date:03/30/2024 09:10:59 PM Interpretation: Performing Lab: Notes/Report: [facility] , White Blood Count 7.8 4.0-11.0 10 3/uL Red Blood Count 4.55 4.70-6.10 10 6/uL Hemoglobin 13.7 14.0-18.0 g/dL Hematocrit 42.8 42.0-54.0 % Mean Corpuscular Volume 94.1 80.0-94.0 fL Mean Corpuscular Hemoglobin 30.1 25.9-34.0 pg Mean Corpuscular HGB Conc 32.0 29.9-35.2 g/dL Red Cell Distribution Width 13.9 11.0-15.0 % Platelet Count 205 150-450 10 3/uL Mean Platelet Volume 11.8 9.5-13.5 fL Neutrophils Percent Auto 41.1 43.0-75.0 % Lymphocytes Percent Auto 46.4 20.5-60.0 % Monocytes Percent Auto 7.8 1.7-12.0 % Eosinophils Percent Auto 3.6 0.9-7.0 % Basophils Percent Auto 1.0 0.2-2.0 % Immature Granulocytes Pct Auto 0.1 0.0-0.5 % Neutrophils Absolute Auto 3.2 1.4-6.5 10 3/uL Lymphocytes Absolute Auto 3.6 1.2-3.8 10 3/uL Monocytes Absolute Auto 0.6 0.3-0.8 10 3/uL Eosinophils Absolute Auto 0.3 0.0-0.7 10 3/uL Basophils Absolute Auto 0.1 0.0-0.1 10 3/uL Immature Granulocytes Abs Auto 0.01 0.00-0.03 10 3/uL Performing Lab: see note ML - [facility] GLYCOHEMOGLOBIN A1C Reviewed date:03/30/2024 09:10:59 PM Interpretation: Performing Lab: Notes/Report: [facility] , Glycohemoglobin A1C 5.7 4.5-6.2 % ADA RECOMMENDED LIMIT 4.0 - 6.0 ADA THERAPEUTIC TARGET < 7.0 ACTION SUGGESTED > 7.0 Estimated Average Glucose 117 Performing Lab: see note - [facility] LAB TESTING Reviewed date:03/31/2024 08:47:28 PM Interpretation: Performing Lab: Notes/Report: [id number] LIPOPROTEIN A [facility] , Miscellaneous Test COMMENT . Test Ordered: [id number] Lipoprotein (a) Lipoprotein (a) 15.3 nmol/L Reference Range: <75.0 Note: Values greater than or equal to 75.0 nmol/L may indicate an independent risk factor for CHD, but must be evaluated with caution when applied to non- populations due to the influence of genetic factors on Lp(a) across ethnicities. Performed at: - [facility] [address] [id number] Elementary Educator: Arnold Cabral PhD, Phone: [phone] Performing Lab: see note - [facility] LB LIPID PROFILE Reviewed date:03/30/2024 09:10:59 PM Interpretation: Performing Lab: Notes/Report: [facility] , Triglycerides 108 <=150 mg/dL Cholesterol 149 <=200 mg/dL HDL Cholesterol 46 40-60 mg/dL > or =60 mg/dl - LOW CARDIOVASCULAR RISK <40 mg/dl - HIGH CARDIOVASCULAR RISK LDL Cholesterol Calculated 81.4 <100 mg/dl OPTIMAL 100-129 mg/dl NEAR OR ABOVE OPTIMAL 130-159 mg/dl BORDERLINE HIGH 160-189 mg/dl HIGH >190 mg/dl VERY HIGH VLDL CHOLESTEROL 21.6 Chol HDL Ratio 3.2 3.3 - 4.4 LOW RISK 4.4 - 7.1 AVERAGE RISK 7.1 - 11.0 MODERATE RISK >11.0 HIGH RISK Performing Lab: see note ML - [facility] LB PROF 14(COMP METB) Reviewed date:03/30/2024 09:10:59 PM Interpretation: Performing Lab: Notes/Report: [facility] , Sodium 142 136-145 mmol/L Potassium 4.8 3.5-5.1 mmol/L Chloride 107 98-107 mmol/L Carbon Dioxide 27.9 21.0-32.0 mmol/L Anion Gap 11.9 Glucose 90 74-106 mg/dL Blood Urea Nitrogen 14.0 7.0-18.0 mg/dL Creatinine 1.11 0.70-1.30 mg/dL Estimated GFR ( Aura >60 >=60 Estimated GFR (Non- Sandy >60 >=60 BUN Creatinine Ratio 12.6 Calcium 8.7 8.5-10.1 mg/dL Bilirubin Total 0.3 0.2-1.0 mg/dL Aspartate Amino Transferase 23 15-37 U/L Alanine Aminotransferase 26 16-63 U/L Alkaline Phosphatase 41 46-116 U/L Total Protein 7.1 6.4-8.2 g/dL Albumin Level 3.3 3.4-5.0 g/dL Globulin 3.8 Albumin Globulin Ratio 0.9 Performing Lab: see note ML - [facility] LB LAB TESTING Reviewed date:04/01/2024 07:42:38 AM Interpretation: Performing Lab: Notes/Report: [id number] Apolipoprotein B [facility] , Miscellaneous Test COMMENT . Test Ordered: [id number] Apolipoprotein B Apolipoprotein B 85 mg/dL Reference Range: <90 Desirable < 90 Borderline High 90 - 99 High 100 - 130 Very High >130 -------- ASCVD RISK THERAPEUTIC TARGET CATEGORY APO B (mg/dL) Very High Risk <80 (if extreme risk <70) High Risk <90 Moderate Risk <90 Performed at: - [address] [id number] Elementary Educator: Maine Arndt MD, Phone: [phone] Performed at: - [facility] [address] [id number] Elementary Educator: Arnold Cabral PhD, Phone: [phone] Performing Lab: see note - [facility] LB CBC AUTO DIFF Reviewed date:04/14/2024 03:14:05 PM Interpretation: Performing Lab: Notes/Report: [facility] , White Blood Count 10.0 4.0-11.0 10 3/uL Red Blood Count 4.46 4.70-6.10 10 6/uL Hemoglobin 13.6 14.0-18.0 g/dL Hematocrit 41.6 42.0-54.0 % Mean Corpuscular Volume 93.3 80.0-94.0 fL Mean Corpuscular Hemoglobin 30.5 25.9-34.0 pg Mean Corpuscular HGB Conc 32.7 29.9-35.2 g/dL Red Cell Distribution Width 14.0 11.0-15.0 % Platelet Count 202 150-450 10 3/uL Mean Platelet Volume 12.2 9.5-13.5 fL Neutrophils Percent Auto 70.0 43.0-75.0 % Lymphocytes Percent Auto 21.0 20.5-60.0 % Monocytes Percent Auto 5.9 1.7-12.0 % Eosinophils Percent Auto 1.3 0.9-7.0 % Basophils Percent Auto 0.5 0.2-2.0 % Immature Granulocytes Pct Auto 1.3 0.0-0.5 % Neutrophils Absolute Auto 7.0 1.4-6.5 10 3/uL Lymphocytes Absolute Auto 2.1 1.2-3.8 10 3/uL Monocytes Absolute Auto 0.6 0.3-0.8 10 3/uL Eosinophils Absolute Auto 0.1 0.0-0.7 10 3/uL Basophils Absolute Auto 0.1 0.0-0.1 10 3/uL Immature Granulocytes Abs Auto 0.13 0.00-0.03 10 3/uL Performing Lab: see note - [facility] LB PROF 14(COMP METB) Reviewed date:04/14/2024 03:14:05 PM Interpretation: Performing Lab: Notes/Report: [facility] , Sodium 143 136-145 mmol/L Potassium 4.0 3.5-5.1 mmol/L Chloride 106 98-107 mmol/L Carbon Dioxide 26.2 21.0-32.0 mmol/L Anion Gap 14.8 Glucose 100 74-106 mg/dL Blood Urea Nitrogen 17.0 7.0-18.0 mg/dL Creatinine 0.95 0.70-1.30 mg/dL Estimated GFR ( Aura >60 >=60 Estimated GFR (Non- Sandy >60 >=60 BUN Creatinine Ratio 17.9 Calcium 8.7 8.5-10.1 mg/dL Bilirubin Total 0.5 0.2-1.0 mg/dL Aspartate Amino Transferase 24 15-37 U/L Alanine Aminotransferase 27 16-63 U/L Alkaline Phosphatase 42 46-116 U/L Total Protein 7.0 6.4-8.2 g/dL Albumin Level 3.4 3.4-5.0 g/dL Globulin 3.6 Albumin Globulin Ratio 0.9 Performing Lab: see note ML - [facility] LB UA (CLEAN or CATCH) BOTTOM LIQUOR ATTENDANT or M ICRO IF IND. Reviewed date:04/14/2024 03:14:05 PM Interpretation: Performing Lab: Notes/Report: [facility] , Color Urine YELLOW YELLOW Clarity Urine CLEAR CLEAR Specific [place] Urine 1.025 1.005-1.025 pH Urine 6.5 5.0-9.0 Protein Urine NEGATIVE NEG/TRACE mg/dL Glucose Urine UA NEGATIVE NEGATIVE mg/dL Bilirubin Urine NEGATIVE NEGATIVE Ketones Urine TRACE NEGATIVE mg/dL Blood Urine NEGATIVE NEGATIVE Nitrite Urine NEGATIVE NEGATIVE Urobilinogen Urine 1.0 0.2-1.0 EU/dL Leukocyte Esterase Urine NEGATIVE NEGATIVE Urine Microscopic Indicated NO Performing Lab: see note ML - [facility] LB Troponin I High Sensitivity Reviewed date:04/14/2024 03:14:05 PM Interpretation: Performing Lab: Notes/Report: [facility] , Troponin I High Sensitivity 5.7 4.0-76.1 pg/mL CUT-OFF POINTS HAVE BEEN ESTABLISHED BASED ON THE FOURTH UNIVERSAL DEFINITION OF MYOCARDIAL INFARCTION. THE UPPER REFERENCE LIMIT (URL) OF TROPONIN, DEFINED THE 99TH PERCENTILE OF cTnI DISTRIBUTION IN A REFERENCE POPULATION, HAS BEEN CONFIRMED THE DECISION THRESHOLD FOR MO DIAGNOSIS. 99TH PERCENTILE = 76.2 PG/ML NOTE: HIGH-SENSITIVITY TROPONIN ASSAY IS NOT INTENDED TO BE USED IN ISOLATION BUT SHOULD BE INTERPRETED IN CONJUNCTION WITH OTHER DIAGNOSTIC AND CLINICAL INFORMATION. Performing Lab: see note ML - [facility] LB CT chest wo con Reviewed date:04/14/2024 03:14:05 PM Interpretation: Performing Lab: Notes/Report: Source Facility: [place] [address] CT Scan Report Signed Patient: TAYLOR MCCLELLAN MR#: [id number] : 1955 Acct:[id number] Age/Sex: 68 / M ADM Date: 04/14/24 Loc: ER Attending Dr: Ordering Physician: eJet San Date of Service: 04/14/24 Procedure(s): CT chest wo con Accession Number(s): [id number] cc: Norbert Jiang M.D. [place] [address] Patient Name: TAYLOR MCCLELLAN MRN: [id number] date: 1955 Sex: M Assigned Patient Location: ER Current Patient Location: ER Accession/Order Number: [id number] Exam Date: 04/14/2024 11:59 Report Date: 04/14/2024 12:47 At the request of: JEET SAN Procedure: CT chest wo con EXAMINATION: CT abdomen pelvis wo con, CT chest wo con HISTORY: fall, injury COMPARISON: No relevant comparison available. TECHNIQUE: Axial, Coronal, and Sagittal CT images were obtained without and/or with IV contrast as indicated by examination type. Dose reduction techniques were achieved by using automated exposure control and/or adjustment of mA and/or kV according to patient size and/or use of iterative reconstruction technique. FINDINGS: LUNGS: Mild patchy and strandy opacities within lower lobes, right greater than left. Stable 6 mm nodule within lateral right middle lobe. Moderate emphysematous changes. PLEURA: No mass or effusion. VASCULATURE: No visible pulmonary arterial thrombus or attenuation. JULIA: Stable mild adenopathy. MEDIASTINUM: Stable mild adenopathy. CARDIAC: No enlargement, pericardial thickening, or pericardial effusion. AORTA: No aneurysm or dissection.. CORONARY ARTERY CALCIFICATIONS: Coronary calcifications are moderate. CHEST WALL: No mass or axillary adenopathy. LIVER: No enlargement, atrophy, abnormal density, or significant focal lesion. BILIARY: No dilatation or calcification. PANCREAS: No lesion, fluid collection, ductal dilatation, or atrophy. SPLEEN: No enlargement or focal lesion. ADRENALS: No mass or enlargement. KIDNEYS: No mass, obstruction, or calcification. BOWEL/MESENTERY: No visible mass, obstruction, or bowel wall thickening. AORTA/VASCULAR: Marked atherosclerotic disease of abdominal aorta and major branches. No aneurysm. RETROPERITONEUM: No mass or adenopathy. LYMPH NODES: No adenopathy. URINARY BLADDER: No visible focal wall thickening, lesion, or calculus. PELVIC ORGANS: No visible mass. Pelvic organs appropriate for patient age. ABDOMINAL WALL: No mass or hernia. BONES: Posterior mechanical fusion L5-S1 via right side pedicle screws and rods. Moderate-marked degenerative disc disease L4-5, L5-S1. No bony lesion or fracture. OTHER: Negative. CT/CT chest wo con IMPRESSION: 1. No acute solid or hollow organ injury of the chest, abdomen, pelvis. 2. Mild infiltrates versus atelectasis within bilateral lower lobes. 3. Stable mild hilar and mediastinal adenopathy; nonspecific. 4. Marked atherosclerotic disease of abdominal aorta and major branches. 5. No fracture. 6. Prior surgical changes and chronic degenerative changes of lumbar spine. Electronically authenticated by: LIAM ADORNO Date: 04/14/2024 12:47 Dictated By: Liam Adorno M.D. Signed By: 04/14/24 1250 DD/ 1247 TD/TT: Newsagent: [place] [address] CT Scan Report Signed Patient: PEDRO LUIS MCCLELLAN PH MR#: [id number] : 1955 Acct:[id number] Age/Sex: 68 / M ADM Date: 04/14/24 Loc: ER Attending Dr: Ordering Physician: Jeet Sna Date of Service: 04/14/24 Procedure(s): CT santino st wo con Accession Number(s): [id number] cc: Norbert Jiang M.D. [place] [id number] Patient Name: TAYLOR MCCLELLAN MRN: [id number] date: 1955 Sex: M Assigned Patient Location: ER Current Patient Loca tion: ER Accession/Order Numb er: [id number] Exam Date: 04/14/2024 11:59 Report Date: 04/14/2024 12:47 At the request of: JEET SAN Procedure: CT chest wo con EXAMINATION: CT abdo men pelvis wo con, CT chest wo con HISTORY: fall, injury COMPARISON: No relev ant comparison available. TECHNIQUE: Axial, Coronal, and Sagittal CT images were obtained without and/or with IV contrast as indicated by examination type. Dose reduction techniques were achieved by usi ng automated exposure control and/or adjustment of mA and/or kV according to patient size and/or use of iterative reconstruction technique. FINDINGS: LUNGS: Mild patchy a nd strandy opacities within lower lobes, right greater than left. Stable 6 mm no dule within lateral right middle lobe. Moderate emphysematous changes. PLEURA: No mass or effusion. VASCULATURE: No visi ble pulmonary arterial thrombus or attenuation. JULIA: Stable mild adenopathy. MEDIASTINUM: Stable mild adenopathy. CARDIAC: No enlargem ent, pericardial thickening, or pericardial effusion. AORTA: No aneurysm o r dissection.. CORONARY ARTERY CALCIFICATIONS: Coronary calcifications are moderate. CHEST WALL: No mass or axillary adenopathy. LIVER: No enlargemen t, atrophy, abnormal density, or significant focal lesion. BILIARY: No dilatati on or calcification. PANCREAS: No lesion, fluid collection, ductal dilatation, or atrophy. SPLEEN: No enlargeme nt or focal lesion. ADRENALS: No mass or enlargement. KIDNEYS: No mass, obstruction, or calcification. BOWEL/MESENTERY: No visible mass, obstruction, or bowel wall thickening. AORTA/VASCULAR: Alejandro ed atherosclerotic disease of abdominal aorta and major branches. No aneurysm. RETROPERITONEUM: No mass or adenopathy. LYMPH NODES: No adenopathy. URINARY BLADDER: No visible focal wall thickening, lesion, or calculus. PELVIC ORGANS: No vi sible mass. Pelvic organs appropriate for patient age. ABDOMINAL WALL: No m ass or hernia. BONES: Posterior mechanical fusion L5-S1 via right side pedicle screws and rods. Moderate-marke d degenerative disc disease L4-5, L5-S1. No bony lesion or fracture. OTHER: Negative. C T/CT chest wo con IMPRESSION: 1. No acute solid or hollow organ injury of the chest, abdomen, pelvis. 2. Mild infiltrates versus atelectasis within bilateral lower lobes. 3. Stable mild hilar and mediastinal adenopathy; nonspecific. 4. Marked atheroscle rotic disease of abdominal aorta and major branches. 5. No fracture. 6. Prior surgical ch anges and chronic degenerative changes of lumbar spine. Electronically authenticated by: LIAM ADORNO Date: 04/14/2024 12:47 Dictated By: Liam Adorno M.D. Signed By: 04/14/24 1250 DD/ 1247 TD/TT: Newsagent: CT abdomen pelvis wo con Reviewed date:04/14/2024 03:14:05 PM Interpretation: Performing Lab: Notes/Report: Source Facility: [place] [address] CT Scan Report Signed Patient: TAYLOR MCCLELLAN MR#: [id number] : 1955 Acct:[id number] Age/Sex: 68 / M ADM Date: 04/14/24 Loc: ER Attending Dr: Ordering Physician: Jeet San Date of Service: 04/14/24 Procedure(s): CT abdomen pelvis wo con Accession Number(s): [id number] cc: Norbert Jiang M.D. [place] [address] Patient Name: TAYLOR MCCLELLAN MRN: [id number] date: 1955 Sex: M Assigned Patient Location: ER Current Patient Location: ER Accession/Order Number: [id number] Exam Date: 04/14/2024 11:59 Report Date: 04/14/2024 12:47 At the request of: JEET SAN Procedure: CT abdomen pelvis wo con EXAMINATION: CT abdomen pelvis wo con, CT chest wo con HISTORY: fall, injury COMPARISON: No relevant comparison available. TECHNIQUE: Axial, Coronal, and Sagittal CT images were obtained without and/or with IV contrast as indicated by examination type. Dose reduction techniques were achieved by using automated exposure control and/or adjustment of mA and/or kV according to patient size and/or use of iterative reconstruction technique. FINDINGS: LUNGS: Mild patchy and strandy opacities within lower lobes, right greater than left. Stable 6 mm nodule within lateral right middle lobe. Moderate emphysematous changes. PLEURA: No mass or effusion. VASCULATURE: No visible pulmonary arterial thrombus or attenuation. JULIA: Stable mild adenopathy. MEDIASTINUM: Stable mild adenopathy. CARDIAC: No enlargement, pericardial thickening, or pericardial effusion. AORTA: No aneurysm or dissection.. CORONARY ARTERY CALCIFICATIONS: Coronary calcifications are moderate. CHEST WALL: No mass or axillary adenopathy. LIVER: No enlargement, atrophy, abnormal density, or significant focal lesion. BILIARY: No dilatation or calcification. PANCREAS: No lesion, fluid collection, ductal dilatation, or atrophy. SPLEEN: No enlargement or focal lesion. ADRENALS: No mass or enlargement. KIDNEYS: No mass, obstruction, or calcification. BOWEL/MESENTERY: No visible mass, obstruction, or bowel wall thickening. AORTA/VASCULAR: Marked atherosclerotic disease of abdominal aorta and major branches. No aneurysm. RETROPERITONEUM: No mass or adenopathy. LYMPH NODES: No adenopathy. URINARY BLADDER: No visible focal wall thickening, lesion, or calculus. PELVIC ORGANS: No visible mass. Pelvic organs appropriate for patient age. ABDOMINAL WALL: No mass or hernia. BONES: Posterior mechanical fusion L5-S1 via right side pedicle screws and rods. Moderate-marked degenerative disc disease L4-5, L5-S1. No bony lesion or fracture. OTHER: Negative. CT/CT abdomen pelvis wo con IMPRESSION: 1. No acute solid or hollow organ injury of the chest, abdomen, pelvis. 2. Mild infiltrates versus atelectasis within bilateral lower lobes. 3. Stable mild hilar and mediastinal adenopathy; nonspecific. 4. Marked atherosclerotic disease of abdominal aorta and major branches. 5. No fracture. 6. Prior surgical changes and chronic degenerative changes of lumbar spine. Electronically authenticated by: LIAM ADORNO Date: 04/14/2024 12:47 Dictated By: Liam Adorno M.D. Signed By: 04/14/24 1258 DD/ 1247 TD/TT: Newsagent: [place] [address] CT Scan Report Signed Patient: PEDRO LUIS MCCLELLAN PH MR#: [id number] : 1955 Acct:[id number] Age/Sex: 68 / M ADM Date: 04/14/24 Loc: ER Attending Dr: Ordering Physician: Jeet San Date of Service: 04/14/24 Procedure(s): CT abd omen pelvis wo con Accession Number(s): [id number] cc: Norbert Jiang M.D. [address] [address] Patient Name: TAYLOR MCCLELLAN MRN: [id number] date: 1955 Sex: M Assigned Patient Location: ER Current Patient Loca tion: ER Accession/Order Numb er: [id number] Exam Date: 04/14/2024 11:59 Report Date: 04/14/2024 12:47 At the request of: JEET SAN Procedure: CT abdome n pelvis wo con EXAMINATION: CT abdo men pelvis wo con, CT chest wo con HISTORY: fall, injury COMPARISON: No relev ant comparison available. TECHNIQUE: Axial, Coronal, and Sagittal CT images were obtained without and/or with IV contrast as indicated by examination type. Dose reduction techniques were achieved by usi ng automated exposure control and/or adjustment of mA and/or kV according to patient size and/or use of iterative reconstruction technique. FINDINGS: LUNGS: Mild patchy a nd strandy opacities within lower lobes, right greater than left. Stable 6 mm no dule within lateral right middle lobe. Moderate emphysematous changes. PLEURA: No mass or effusion. VASCULATURE: No visi ble pulmonary arterial thrombus or attenuation. JULIA: Stable mild adenopathy. MEDIASTINUM: Stable mild adenopathy. CARDIAC: No enlargem ent, pericardial thickening, or pericardial effusion. AORTA: No aneurysm o r dissection.. CORONARY ARTERY CALCIFICATIONS: Coronary calcifications are moderate. CHEST WALL: No mass or axillary adenopathy. LIVER: No enlargemen t, atrophy, abnormal density, or significant focal lesion. BILIARY: No dilatati on or calcification. PANCREAS: No lesion, fluid collection, ductal dilatation, or atrophy. SPLEEN: No enlargeme nt or focal lesion. ADRENALS: No mass or enlargement. KIDNEYS: No mass, obstruction, or calcification. BOWEL/MESENTERY: No visible mass, obstruction, or bowel wall thickening. AORTA/VASCULAR: Alejandro ed atherosclerotic disease of abdominal aorta and major branches. No aneurysm. RETROPERITONEUM: No mass or adenopathy. LYMPH NODES: No adenopathy. URINARY BLADDER: No visible focal wall thickening, lesion, or calculus. PELVIC ORGANS: No vi sible mass. Pelvic organs appropriate for patient age. ABDOMINAL WALL: No m ass or hernia. BONES: Posterior mechanical fusion L5-S1 via right side pedicle screws and rods. Moderate-marke d degenerative disc disease L4-5, L5-S1. No bony lesion or fracture. OTHER: Negative. C T/CT abdomen pelvis wo con IMPRESSION: 1. No acute solid or hollow organ injury of the chest, abdomen, pelvis. 2. Mild infiltrates versus atelectasis within bilateral lower lobes. 3. Stable mild hilar and mediastinal adenopathy; nonspecific. 4. Marked atheroscle rotic disease of abdominal aorta and major branches. 5. No fracture. 6. Prior surgical ch anges and chronic degenerative changes of lumbar spine. Electronically authenticated by: LIAM ADONRO Date: 04/14/2024 12:47 Dictated By: Liam Adorno M.D. Signed By: 04/14/24 1250 DD/ 1247 TD/TT: Newsagent: CBC AUTO DIFF Reviewed date:04/29/2024 07:56:23 PM Interpretation: Performing Lab: Notes/Report: [facility] , White Blood Count 8.0 4.0-11.0 10 3/uL Red Blood Count 4.15 4.70-6.10 10 6/uL Hemoglobin 12.9 14.0-18.0 g/dL Hematocrit 38.3 42.0-54.0 % Mean Corpuscular Volume 92.3 80.0-94.0 fL Mean Corpuscular Hemoglobin 31.1 25.9-34.0 pg Mean Corpuscular HGB Conc 33.7 29.9-35.2 g/dL Red Cell Distribution Width 13.6 11.0-15.0 % Platelet Count 220 150-450 10 3/uL Mean Platelet Volume 11.8 9.5-13.5 fL Neutrophils Percent Auto 57.5 43.0-75.0 % Lymphocytes Percent Auto 30.8 20.5-60.0 % Monocytes Percent Auto 8.6 1.7-12.0 % Eosinophils Percent Auto 2.2 0.9-7.0 % Basophils Percent Auto 0.7 0.2-2.0 % Immature Granulocytes Pct Auto 0.2 0.0-0.5 % Neutrophils Absolute Auto 4.6 1.4-6.5 10 3/uL Lymphocytes Absolute Auto 2.5 1.2-3.8 10 3/uL Monocytes Absolute Auto 0.7 0.3-0.8 10 3/uL Eosinophils Absolute Auto 0.2 0.0-0.7 10 3/uL Basophils Absolute Auto 0.1 0.0-0.1 10 3/uL Immature Granulocytes Abs Auto 0.02 0.00-0.03 10 3/uL Performing Lab: see note ML - [facility] LB CT angio neck Reviewed date:04/30/2024 08:56:56 PM Interpretation: Performing Lab: Notes/Report: Source Facility: [place] [address] CT Scan Report Signed Patient: TAYLOR MCCLELLAN MR#: [id number] : 1955 Acct:[id number] Age/Sex: 68 / M ADM Date: 04/29/24 Loc: ER Attending Dr: Ordering Physician: Aubrey Doran Date of Service: 04/29/24 Procedure(s): CT angio neck Accession Number(s): [id number] cc: Norbert Jiang M.D. [place] [address] Patient Name: TAYLOR MCCLELLAN MRN: [id number] date: 1955 Sex: M Assigned Patient Location: ER Current Patient Location: ER Accession/Order Number: [id number] Exam Date: 04/29/2024 21:10 Report Date: 04/29/2024 22:34 At the request of: AUBREY DORAN Procedure: CT angio neck EXAM: CT angio head, CT angio neck HISTORY: Intermittent neural deficits. COMPARISON: Head CT on 04/29/2024. CT of the chest on 04/14/2024 and 11/05/2023. TECHNIQUE: Following IV administration of iodinated contrast, axial CT scans of the head and neck were obtained. MPR and MIP images images were obtained. In addition, 3-D reconstruction images were generated using a separate independent workstation. Carotid stenosis is based on NASCET criteria. Dose reduction techniques were achieved by using automated exposure control and/or adjustment of mA and/or kV according to patient size and/or the use of an iterative reconstruction technique. FINDINGS: CTA OF THE HEAD: No major branch occlusion or significant intracranial stenosis. 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 Hypoplastic right A1. No aneurysm. Dural venous sinuses are patent. CTA OF THE NECK: No abnormal soft tissue mass in the neck. The visualized lungs show mild centrilobular emphysema. Osseous structures are intact. A small-moderate amount of food material in the upper esophagus is present. The chest CT obtained on 04/14/2024 and 11/05/2023 showed diffuse thickening of the distal esophagus without significant interval change. The aortic arch shows no aneurysm. The great vessels of the aortic arch show no significant stenosis. Vertebral arteries show no significant stenosis or dissection. A stent in the distal right common carotid and proximal right internal carotid is present. A soft plaque in the distal right common carotid at the proximal end of the stent results in about 44% diameter stenosis with the stenotic segment measuring about 3 mm and the normal segment, 5.4 mm. The left common carotid and left internal carotid show no significant stenosis. CT/CT angio neck IMPRESSION: No large vessel occlusion. No significant intracranial stenosis. Patent dural venous sinuses. A stent in the distal right common carotid and proximal right internal carotid is present. A soft plaque in the distal right common carotid at the proximal end of the stent results in about 44% diameter stenosis. The left common carotid and internal carotid show no significant stenosis. Vertebral arteries show no significant stenosis. A small-moderate amount of food material in the upper esophagus is present. The chest CT obtained on 04/14/2024 and 11/05/2023 showed diffuse thickening of the distal esophagus without significant interval change. The findings favor esophagitis. However, if there is clinical indication, endoscopy will be helpful to exclude neoplasm. Mild centrilobular emphysema. Electronically authenticated by: TERRY IBRAHIM Date: 04/29/2024 22:34 Dictated By: Terry Ibrahim M.D. Signed By: 04/29/242243 DD/ 33 TD/TT: Newsagent: The [address] [address] [address] Scan Report Signed Patient: PEDRO LUIS MCCLELLAN PH MR#: [id number] : 1955 Acct:[id number] Age/Sex: 68 / M ADM Date: 04/29/24 Loc: ER Attending Dr: Ordering Physician: Aubrey Doran Date of Service: 04/29/24 Procedure(s): CT ang io neck Accession Number(s): [id number] cc: Norbert Jiang M.D. The [address] [address] Patient Name: TAYLOR MCCLELLAN MRN: [id number] date: 1955 Sex: M Assigned Patient Location: ER Current Patient Loca tion: ER Accession/Order Numb er: [id number] Exam Date: 04/29/2024 21:10 Report Date: 04/29/2024 22:34 At the request of: AUBREY DORAN Procedure: CT angio neck EXAM: CT angio head, CT angio neck HISTORY: Intermitten t neural deficits. COMPARISON: Head CT on 04/29/2024. CT of the chest on 04/14/2024 and 11/05/2023. TECHNIQUE: Following IV administration of iodinated contrast, axial CT scans of the head and neck we re obtained. MPR and MIP images images were obtained. In addition, 3-D reconstruction images were generated using a separate independent workstation. Carotid stenosis is based on NASCET criteria. Dose reduction techn iques were achieved by using automated exposure control and/or adjustment of mA and/or kV according to patient size and/or the use of an iterative reconstruction technique. FINDINGS: CTA OF THE HEAD: No major branch occlusion or significant intracranial stenosis. 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 Hypoplastic right A1. No aneurys m. Dural venous sinuses are patent. CTA OF THE NECK: No abnormal soft tissue mass in the neck. The visualized lungs show mild centrilobu lar emphysema. Osseous structures are intact. A small-moderate amoun t of food material in the upper esophagus is present. The chest CT obtained on 04/14/2024 and 11/05/2023 showed diffuse thickening of the distal esophagus wit hout significant interval change. The aortic arch show s no aneurysm. The great vessels of the aortic arch show no significant stenosis . Vertebral arteries show no significant stenosis or dissection. A stent in the distal right common carotid and proximal right internal carotid is present. A soft plaque in the distal right common carotid at the proximal end of the stent results in about 44% diameter stenosis with the stenotic segment measuring about 3 mm and the normal segment, 5.4 mm. The left common carotid and left internal carotid show no significant stenosis. C T/CT angio neck IMPRESSION: No large vessel occlusion. No significant intracranial stenosis. Patent dural venous sinuses. A stent in the dista l right common carotid and proximal right internal carotid is present. A soft p laque in the distal right common carotid at the proximal end of the stent res ults in about 44% diameter stenosis. The left common griffin tid and internal carotid show no significant stenosis. Vertebral arteries s how no significant stenosis. A small-moderate ben unt of food material in the upper esophagus is present. The chest CT obtained on 04/14/2024 and 11/05/2023 showed diffuse thickening of the distal esophagus wit hout significant interval change. The findings favor esophagitis. However , if there is clinical indication, endoscopy will be helpful to exclude neoplasm. Mild centrilobular emphysema. Electronically authenticated by: TERRY IBRAHIM Date: 04/29/2024 22:34 Dictated By: Mic Ibrahim M.D. Signed By: 04/29/242243 DD/ 33 TD/TT: Newsagent: CT angio head Reviewed date:04/30/2024 08:56:56 PM Interpretation: Performing Lab: Notes/Report: Source Facility: [facility]-[address] [place] [address] [place] [address] CT Scan Report Signed Patient: TAYLOR MCCLELLAN MR#: [id number] : 1955 Acct:[id number] Age/Sex: 68 / M ADM Date: 04/29/24 Loc: ER Attending Dr: Ordering Physician: Aubrey Doran Date of Service: 04/29/24 Procedure(s): CT angio head Accession Number(s): [id number] cc: Norbert Jiang M.D. [address] [address] Patient Name: TAYLOR MCCLELLAN MRN: [id number] date: 1955 Sex: M Assigned Patient Location: ER Current Patient Location: ER Accession/Order Number: [id number] Exam Date: 04/29/2024 21:10 Report Date: 04/29/2024 22:34 At the request of: AUBREY DORAN Procedure: CT angio head EXAM: CT angio head, CT angio neck HISTORY: Intermittent neural deficits. COMPARISON: Head CT on 04/29/2024. CT of the chest on 04/14/2024 and 11/05/2023. TECHNIQUE: Following IV administration of iodinated contrast, axial CT scans of the head and neck were obtained. MPR and MIP images images were obtained. In addition, 3-D reconstruction images were generated using a separate independent workstation. Carotid stenosis is based on NASCET criteria. Dose reduction techniques were achieved by using automated exposure control and/or adjustment of mA and/or kV according to patient size and/or the use of an iterative reconstruction technique. FINDINGS: CTA OF THE HEAD: No major branch occlusion or significant intracranial stenosis. 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 Hypoplastic right A1. No aneurysm. Dural venous sinuses are patent. CTA OF THE NECK: No abnormal soft tissue mass in the neck. The visualized lungs show mild centrilobular emphysema. Osseous structures are intact. A small-moderate amount of food material in the upper esophagus is present. The chest CT obtained on 04/14/2024 and 11/05/2023 showed diffuse thickening of the distal esophagus without significant interval change. The aortic arch shows no aneurysm. The great vessels of the aortic arch show no significant stenosis. Vertebral arteries show no significant stenosis or dissection. A stent in the distal right common carotid and proximal right internal carotid is present. A soft plaque in the distal right common carotid at the proximal end of the stent results in about 44% diameter stenosis with the stenotic segment measuring about 3 mm and the normal segment, 5.4 mm. The left common carotid and left internal carotid show no significant stenosis. CT/CT angio head IMPRESSION: No large vessel occlusion. No significant intracranial stenosis. Patent dural venous sinuses. A stent in the distal right common carotid and proximal right internal carotid is present. A soft plaque in the distal right common carotid at the proximal end of the stent results in about 44% diameter stenosis. The left common carotid and internal carotid show no significant stenosis. Vertebral arteries show no significant stenosis. A small-moderate amount of food material in the upper esophagus is present. The chest CT obtained on 04/14/2024 and 11/05/2023 showed diffuse thickening of the distal esophagus without significant interval change. The findings favor esophagitis. However, if there is clinical indication, endoscopy will be helpful to exclude neoplasm. Mild centrilobular emphysema. Electronically authenticated by: TERRY IBRAHIM Date: 04/29/2024 22:34 Dictated By: Terry Ibrahim M.D. Signed By: 04/29/242243 DD/ 33 TD/TT: Newsagent: [place] [address] CT Scan Report Signed Patient: PEDRO LUIS MCCLELLAN PH MR#: [id number] : 1955 Acct:[id number] Age/Sex: 68 / M ADM Date: 04/29/24 Loc: ER Attending Dr: Ordering Physician: Aubrey Doran Date of Service: 04/29/24 Procedure(s): CT ang io head Accession Number(s): [id number] cc: Norbert Jiang M.D. [place] [address] Patient Name: TAYLOR MCCLELLAN MRN: [id number] date: 1955 Sex: M Assigned Patient Location: ER Current Patient Loca tion: ER Accession/Order Numb er: [id number] Exam Date: 04/29/2024 21:10 Report Date: 04/29/2024 22:34 At the request of: AUBREY DORAN Procedure: CT angio head EXAM: CT angio head, CT angio neck HISTORY: Intermitten t neural deficits. COMPARISON: Head CT on 04/29/2024. CT of the chest on 04/14/2024 and 11/05/2023. TECHNIQUE: Following IV administration of iodinated contrast, axial CT scans of the head and neck we re obtained. MPR and MIP images images were obtained. In addition, 3-D reconstruction images were generated using a separate independent workstation. Carotid stenosis is based on NASCET criteria. Dose reduction techn iques were achieved by using automated exposure control and/or adjustment of mA and/or kV according to patient size and/or the use of an iterative reconstruction technique. FINDINGS: CTA OF THE HEAD: No major branch occlusion or significant intracranial stenosis. 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 Hypoplastic right A1. No aneurys m. Dural venous sinuses are patent. CTA OF THE NECK: No abnormal soft tissue mass in the neck. The visualized lungs show mild centrilobu lar emphysema. Osseous structures are intact. A small-moderate amoun t of food material in the upper esophagus is present. The chest CT obtained on 04/14/2024 and 11/05/2023 showed diffuse thickening of the distal esophagus wit hout significant interval change. The aortic arch show s no aneurysm. The great vessels of the aortic arch show no significant stenosis . Vertebral arteries show no significant stenosis or dissection. A stent in the distal right common carotid and proximal right internal carotid is present. A soft plaque in the distal right common carotid at the proximal end of the stent results in about 44% diameter stenosis with the stenotic segment measuring about 3 mm and the normal segment, 5.4 mm. The left common carotid and left internal carotid show no significant stenosis. C T/CT angio head IMPRESSION: No large vessel occlusion. No significant intracranial stenosis. Patent dural venous sinuses. A stent in the dista l right common carotid and proximal right internal carotid is present. A soft p laque in the distal right common carotid at the proximal end of the stent res ults in about 44% diameter stenosis. The left common griffin tid and internal carotid show no significant stenosis. Vertebral arteries s how no significant stenosis. A small-moderate ben unt of food material in the upper esophagus is present. The chest CT obtained on 04/14/2024 and 11/05/2023 showed diffuse thickening of the distal esophagus wit hout significant interval change. The findings favor esophagitis. However , if there is clinical indication, endoscopy will be helpful to exclude neoplasm. Mild centrilobular emphysema. Electronically authenticated by: TERRY IBRAHIM Date: 04/29/2024 22:34 Dictated By: Mic Ibrahim M.D. Signed By: 04/29/242243 DD/ 33 TD/TT: Newsagent: NAM echo doppler complete Reviewed date:04/30/2024 08:56:56 PM Interpretation: Performing Lab: Notes/Report: Source Facility: [place] [address] Cardiology Report Signed Patient: TAYLOR MCCLELLAN MR#: [id number] : 1955 Acct:[id number] Age/Sex: 68 / M ADM Date: 04/29/24 Loc: MS 201-[address]: Norbert Jiang M.D. Ordering Physician: Norbert Jiang M.D. Date of Service: 04/30/24 Procedure(s): CA echo doppler complete Accession Number(s): [id number] cc: Norbert Jiang M.D. Patient Name: TAYLOR MCCLELLAN MR#: [id number] : 1955 Exam Date: 04/30/2024 Ordering Doctor: DR Norbert Jiang . ECHOCARDIOGRAM REPORT PROCEDURE: CA ECHO DOPPLER COMPLETE INDICATIONS: TIA COMPARISON: None. DESCRIPTION: COMPLETE ECHOCARDIOGRAM Real-time transthoracic echocardiography with 2D, M-mode, spectral and color flow Doppler performed. QUALITY: Technical quality was adequate. LEFT VENTRICLE: Normal chamber size. Severe left ventricular hypertrophy. LV EF: Global left ventricular systolic function is normal; visually estimated ejection fraction is 60 to 65%. No obvious wall motion abnormalities. DIASTOLIC: Grade 2, moderate diastolic dysfunction. ATRIAL SEPTUM: Inadequately seen. LEFT ATRIUM: Normal chamber size. RIGHT ATRIUM: Mild dilatation. RIGHT VENTRICLE: Normal chamber size. Normal right ventricular systolic function. TRICUSPID VALVE: Normal mobility and thickness. No stenosis with trivial regurgitation. Mild pulmonary hypertension. RVSP 37mmHg. MITRAL VALVE: Normal mobility and thickness. No evidence of mitral valve stenosis. There is no mitral annular calcification. Mild mitral regurgitation. AORTIC VALVE: Normal trileaflet appearance. No visible sclerosis. Normal leaflet mobility. No evidence of aortic valve stenosis. No aortic regurgitation. AORTIC ROOT: Normal diameter and appearance. PULMONIC VALVE: Normal thickness and mobility. No stenosis. No regurgitation. PERICARDIUM: Minimal pericardial effusion. IVC: Collapses with inspirations. Normal size CONCLUSION: 1. Global left ventricular systolic function is normal; visually estimated ejection fraction is 60 to 65% 2. Normal right ventricular size and systolic function 3. The right atrium is enlarged 4. Severe left ventricular hypertrophy 5. Grade 2, moderate diastolic dysfunction 6. Mildly elevated right ventricular systolic pressure; RVSP 57 mmHg 7. Mild mitral regurgitation 8. Minimal pericardial effusion Adult Echocardiography Procedure Report Left Ventricle LVEDD (3.7 - 5.6 cm): 5.29 cm LVESD (2.2 - 4.0 cm): 3.78 cm LVIVS thickness (0.6 - 1.2 cm): 1.70 cm LVPW thickness (0.5 - 1.0 cm): 1.68 cm e': 0.06 m/s E - e': 16.79 LVOT Max Gradient: 2.73 mm[Hg] LVOT Area (cm2): 0.83 m/s Peak Velocity (LVOT): 0.83 m/s Mean Velocity (LVOT): 0.51 m/s LVOT Diameter 2.30 cm Left Ventricular Ejection Fraction: 54.68 % Left Atrium LA Volume Index (2D A2C): 34.34 ml/m2 Left Atrium Systolic Dimension: 4.02 cm Mitral Valve MV E to A Ratio: 0.78 MV Max Gradient: MV Mean Gradient: Mitral Valve A-Wave Peak Velocity: 1.33 m/s Mitral Valve E-Wave Peak Velocity: 1.04 m/s Cardiovascular Orifice Area: Right Ventricle RV Internal Diastolic Dimension: 3.05 cm Aorta AO Root Diam: 3.86 cm Ascending Ao Diam: 2.48 cm Aortic Valve AoV Area (Peak Jp): 2.48 cm2, 2.48 cm2 AoV Area (VTI): 2.86 cm2, 2.86 cm2 Deceleration Schleicher: Pressure Half-Time: Peak Velocity(Antegrade Flow): 1.38 m/s Peak Gradient(Antegrade Flow): 7.59 mm[Hg] Mean Velocity(Antegrade Flow): 0.87 m/s Mean Gradient(Antegrade Flow): 3.56 mm[Hg] Velocity Time Integral: 25.38 cm Tricuspid Valve Peak Velocity (Regurgitant Flow): 2.92 m/s, 2.80 m/s, 2.66 m/s Peak Velocity: Pulmonic Valve Mean Gradient: 1.51 mm[Hg], 1.42 mm[Hg] Mean Velocity: 0.59 m/s, 0.55 m/s Peak Velocity: 0.82 m/s Peak Gradient: 2.66 mm[Hg], 2.66 mm[Hg] Right Atrium Right Atrium Systolic Pressure: 44.85 ml, 44.85 ml Dictated by: Dottie Tovar M.D. on 04/30/2024 at 16:55 Approved by: Dottie Tovar M.D. on 04/30/2024 at 16:59 Dictated By: Dottie Tovar M.D. Signed By: 04/30/24 1701 DD/ 1659 TD/TT: Newsagent: [place] [address] Cardiology Report Signed Patient: PEDRO LUIS MCCLELLAN PH MR#: [id number] : 1955 Acct:[id number] Age/Sex: 68 / M ADM Date: 04/29/24 Loc: MS 201-[address]: Dixie Jiang M.D. Ordering Physician: Norbert Jiang M.D. Date of Service: 04/30/24 Procedure(s): CA ech o doppler complete Accession Number(s): [id number] cc: Norbert Jiang M.D. Patient Name: TAYLOR MCCLELLAN MR#: [id number] : 1955 Exam Date: 04/30/2024 Ordering Doctor: DR Norbert Jiang . ECHOCARDIOGRAM REPORT PROCEDURE: CA ECHO DOPPLER COMPLETE INDICATIONS: TIA COMPARISON: None. DESCRIPTION: COMPLET E ECHOCARDIOGRAM Real-time transthoracic echocardiography wit h 2D, M-mode, spectral and color flow Doppler performed. QUALITY: Technical quality was adequate. LEFT VENTRICLE: Norm al chamber size. Severe left ventricular hypertrophy. LV EF: Global left ventricular systolic function is normal; visually estimated ejection fraction is 60 to 65%. No obvious wall motion abnormalities. DIASTOLIC: Grade 2, moderate diastolic dysfunction. ATRIAL SEPTUM: Inadequately seen. LEFT ATRIUM: Normal chamber size. RIGHT ATRIUM: Mild dilatation. RIGHT VENTRICLE: Nor mal chamber size. Normal right ventricular systolic function. TRICUSPID VALVE: Nor mal mobility and thickness. No stenosis with trivial regurgitation. Mild pulmonary hypertension. RVSP 37mmHg. MITRAL VALVE: Normal mobility and thickness. No evidence of mitral valve stenosis. There is n o mitral annular calcification. Mild mitral regurgitation. AORTIC VALVE: Normal trileaflet appearance. No visible sclerosis. Normal leaflet mobility. No evidence of aortic valve stenosis. No aortic regurgitation. AORTIC ROOT: Normal diameter and appearance. PULMONIC VALVE: Norm al thickness and mobility. No stenosis. No regurgitation. PERICARDIUM: Minimal pericardial effusion. IVC: Collapses with inspirations. Normal size CONCLUSION: 1. Global left ventricular systolic function is normal; visually estimated ejection fraction is 60 to 65% 2. Normal right ventricular size and systolic function 3. The right atrium is enlarged 4. Severe left ventricular hypertrophy 5. Grade 2, moderate diastolic dysfunction 6. Mildly elevated r ight ventricular systolic pressure; RVSP 57 mmHg 7. Mild mitral regurgitation 8. Minimal pericardi al effusion Adult Echocardiograp hy Procedure Report Left Ventricle LVEDD (3.7 - 5.6 cm) : 5.29 cm LVESD (2.2 - 4.0 cm) : 3.78 cm LVIVS thickness (0.6 - 1.2 cm): 1.70 cm LVPW thickness (0.5 - 1.0 cm): 1.68 cm e': 0.06 m/s E - e': 16.79 LVOT Max Gradient: 2 .73 mm[Hg] LVOT Area (cm2): 0.83 m/s Peak Velocity (LVOT) : 0.83 m/s Mean Velocity (LVOT) : 0.51 m/s LVOT Diameter 2.30 cm Left Ventricular Eje ction Fraction: 54.68 % Left Atrium LA Volume Index (2D A2C): 34.34 ml/m2 Left Atrium Systolic Dimension: 4.02 cm Mitral Valve MV E to A Ratio: 0.78 MV Max Gradient: MV Mean Gradient: Mitral Valve A-Wave Peak Velocity: 1.33 m/s Mitral Valve E-Wave Peak Velocity: 1.04 m/s Cardiovascular Orifi ce Area: Right Ventricle RV Internal Diastoli c Dimension: 3.05 cm Aorta AO Root Diam: 3.86 cm Ascending Ao Diam: 2 .48 cm Aortic Valve AoV Area (Peak Jp): 2.48 cm2, 2.48 cm2 AoV Area (VTI): 2.86 cm2, 2.86 cm2 Deceleration Schleicher: Pressure Half-Time: Peak Velocity(Antegr krishna Flow): 1.38 m/s Peak Gradient(Antegr krishna Flow): 7.59 mm[Hg] Mean Velocity(Antegr krishna Flow): 0.87 m/s Mean Gradient(Antegr krishna Flow): 3.56 mm[Hg] Velocity Time Integr al: 25.38 cm Tricuspid Valve Peak Velocity (Regurgitant Flow): 2.92 m/s, 2.80 m/s, 2.66 m/s Peak Velocity: Pulmonic Valve Mean Gradient: 1.51 mm[Hg], 1.42 mm[Hg] Mean Velocity: 0.59 m/s, 0.55 m/s Peak Velocity: 0.82 m/s Peak Gradient: 2.66 mm[Hg], 2.66 mm[Hg] Right Atrium Right Atrium Systoli c Pressure: 44.85 ml, 44.85 ml Dictated by: Dottie Tovar M.D. on 04/30/2024 at 16:55 Approved by: Dottie Tovar M.D. on 04/30/2024 at 16:59 Dictated By: Dottie Tovar M.D. Signed By: 04/30/24 1701 DD/ 165 TD/TT: Newsagent: CBC AUTO DIFF Reviewed date:05/21/2024 09:35:25 PM Interpretation: Performing Lab: Notes/Report: [facility] , White Blood Count 16.2 4.0-11.0 10 3/uL Red Blood Count 3.94 4.70-6.10 10 6/uL Hemoglobin 12.3 14.0-18.0 g/dL Hematocrit 37.2 42.0-54.0 % Mean Corpuscular Volume 94.4 80.0-94.0 fL Mean Corpuscular Hemoglobin 31.2 25.9-34.0 pg Mean Corpuscular HGB Conc 33.1 29.9-35.2 g/dL Red Cell Distribution Width 13.7 11.0-15.0 % Platelet Count 226 150-450 10 3/uL Mean Platelet Volume 12.4 9.5-13.5 fL Neutrophils Percent Auto 78.4 43.0-75.0 % Lymphocytes Percent Auto 13.5 20.5-60.0 % Monocytes Percent Auto 7.2 1.7-12.0 % Eosinophils Percent Auto 0.1 0.9-7.0 % Basophils Percent Auto 0.4 0.2-2.0 % Immature Granulocytes Pct Auto 0.4 0.0-0.5 % Neutrophils Absolute Auto 12.7 1.4-6.5 10 3/uL Lymphocytes Absolute Auto 2.2 1.2-3.8 10 3/uL Monocytes Absolute Auto 1.2 0.3-0.8 10 3/uL Eosinophils Absolute Auto 0.0 0.0-0.7 10 3/uL Basophils Absolute Auto 0.1 0.0-0.1 10 3/uL Immature Granulocytes Abs Auto 0.06 0.00-0.03 10 3/uL Performing Lab: see note ML - [facility] LB Urine Culture, Routine Reviewed date:05/24/2024 11:12:15 AM Interpretation: Performing Lab: Notes/Report: [facility] , Urine Culture, Routine See Below For Report Urine Culture, Routine Urine Culture, Routine No growth Urine Culture, Routine Urine Culture, Routine [facility]formed at: [facility] Urine Culture, Routine Urine Culture, Routine [address] [place] [phone] Urine Culture, Routine Urine Culture, Routine Elementary Educator: Joshua Cabral PhD, Phone: [phone] Urine Culture, Routine Performing Lab: see note LC - [facility] LB SEE REPORT - Tool Maker Id information not found for OBX-specific technology risk intern legend SARS-CoV-2 Ag* Reviewed date:05/24/2024 11:12:15 AM Interpretation: Performing Lab: Notes/Report: [facility] , SARS-CoV-2 Ag NEGATIVE NEGATIVE This test has not been FDA cleared or approved, but has been authorized by the FDA under an Emergency Use Authorization (EUA) for use by authorized laboratories certified under CLIA that meet the requirements to perform moderate or high complexity testing. This test has been authorized only for the detection of proteins from SARS-CoV-2, not for any other viruses or pathogens. The emergency use of this test is authorized for the duration of the declaration that circumstances exist justifying the authorization of emergency use of in vitro diagnostic tests for detection and/or diagnosis of Covid-19 under section 564(b)(1) of the Act, 21 U.S.C. 360bbb-3(b)(1), unless the declaration is terminated or authorization is revoked sooner. Performing Lab: see note ML - [facility] LB CBC AUTO DIFF Reviewed date:05/24/2024 11:12:15 AM Interpretation: Performing Lab: Notes/Report: [facility] , White Blood Count 8.7 4.0-11.0 10 3/uL Red Blood Count 3.23 4.70-6.10 10 6/uL Hemoglobin 10.0 14.0-18.0 g/dL Hematocrit 30.0 42.0-54.0 % Mean Corpuscular Volume 92.9 80.0-94.0 fL Mean Corpuscular Hemoglobin 31.0 25.9-34.0 pg Mean Corpuscular HGB Conc 33.3 29.9-35.2 g/dL Red Cell Distribution Width 13.6 11.0-15.0 % Platelet Count 171 150-450 10 3/uL Mean Platelet Volume 12.0 9.5-13.5 fL Neutrophils Percent Auto 68.6 43.0-75.0 % Lymphocytes Percent Auto 20.9 20.5-60.0 % Monocytes Percent Auto 7.1 1.7-12.0 % Eosinophils Percent Auto 2.5 0.9-7.0 % Basophils Percent Auto 0.2 0.2-2.0 % Immature Granulocytes Pct Auto 0.7 0.0-0.5 % Neutrophils Absolute Auto 6.0 1.4-6.5 10 3/uL Lymphocytes Absolute Auto 1.8 1.2-3.8 10 3/uL Monocytes Absolute Auto 0.6 0.3-0.8 10 3/uL Eosinophils Absolute Auto 0.2 0.0-0.7 10 3/uL Basophils Absolute Auto 0.0 0.0-0.1 10 3/uL Immature Granulocytes Abs Auto 0.06 0.00-0.03 10 3/uL Performing Lab: see note ML - [facility] LB PROF CHEM 8 (BAS METB) Reviewed date:05/24/2024 11:12:15 AM Interpretation: Performing Lab: Notes/Report: [facility] , Sodium 144 136-145 mmol/L Potassium 3.7 3.5-5.1 mmol/L Chloride 107 98-107 mmol/L Carbon Dioxide 24.2 21.0-32.0 mmol/L Anion Gap 16.5 Glucose 94 74-106 mg/dL Blood Urea Nitrogen 17.0 7.0-18.0 mg/dL Creatinine 0.92 0.70-1.30 mg/dL Estimated GFR ( Aura >60 >=60 Estimated GFR (Non- Sandy >60 >=60 BUN Creatinine Ratio 18.5 Calcium 8.4 8.5-10.1 mg/dL Performing Lab: see note ML - [facility] LB CBC AUTO DIFF Reviewed date:09/13/2024 05:44:31 PM Interpretation: Performing Lab: Notes/Report: [facility] , White Blood Count 6.9 4.0-11.0 10 3/uL Red Blood Count 4.06 4.70-6.10 10 6/uL Hemoglobin 12.5 14.0-18.0 g/dL Hematocrit 38.6 42.0-54.0 % Mean Corpuscular Volume 95.1 80.0-94.0 fL Mean Corpuscular Hemoglobin 30.8 25.9-34.0 pg Mean Corpuscular HGB Conc 32.4 29.9-35.2 g/dL Red Cell Distribution Width 13.4 11.0-15.0 % Platelet Count 181 150-450 10 3/uL Mean Platelet Volume 11.4 9.5-13.5 fL Neutrophils Percent Auto 73.2 43.0-75.0 % Lymphocytes Percent Auto 13.5 20.5-60.0 % Monocytes Percent Auto 12.5 1.7-12.0 % Eosinophils Percent Auto 0.1 0.9-7.0 % Basophils Percent Auto 0.4 0.2-2.0 % Immature Granulocytes Pct Auto 0.3 0.0-0.5 % Neutrophils Absolute Auto 5.0 1.4-6.5 10 3/uL Lymphocytes Absolute Auto 0.9 1.2-3.8 10 3/uL Monocytes Absolute Auto 0.9 0.3-0.8 10 3/uL Eosinophils Absolute Auto 0.0 0.0-0.7 10 3/uL Basophils Absolute Auto 0.0 0.0-0.1 10 3/uL Immature Granulocytes Abs Auto 0.02 0.00-0.03 10 3/uL Performing Lab: see note ML - [facility] LB INFLUENZA A AND B AG Reviewed date:09/13/2024 05:44:31 PM Interpretation: Performing Lab: Notes/Report: [facility] , Influenza Virus A Antigen Negative Negative for Flu A protein antigen. Infection due to Flu A cannot be ruled out. Flu A antigen in the sample may be below the detection limit of the test. Influenza Virus B Antigen Negative Negative for Flu B protein antigen. Infection due to Flu B cannot be ruled out. Flu B antigen in the sample may be below the detection limit of the test. Performing Lab: see note ML - [facility] LB LACTATE or LACTIC ACID Reviewed date:09/13/2024 05:44:31 PM Interpretation: Performing Lab: Notes/Report: [facility] , Lactate/Lactic Acid 1.8 0.4-2.0 mmol/L Performing Lab: see note ML - [facility] LB PROF 14(COMP METB) Reviewed date:09/13/2024 05:44:32 PM Interpretation: Performing Lab: Notes/Report: [facility] , Sodium 142 136-145 mmol/L Potassium 4.5 3.5-5.1 mmol/L Chloride 106 98-107 mmol/L Carbon Dioxide 27.3 21.0-32.0 mmol/L Anion Gap 13.2 Glucose 143 74-106 mg/dL Blood Urea Nitrogen 28.0 7.0-18.0 mg/dL Creatinine 1.60 0.70-1.30 mg/dL Estimated GFR ( Aura 53 >=60 mL/min/1.73m 2 Estimated GFR (Non- Sandy 43 >=60 mL/min/1.73m 2 BUN Creatinine Ratio 17.5 Calcium 8.7 8.5-10.1 mg/dL Bilirubin Total 0.3 0.2-1.0 mg/dL Aspartate Amino Transferase 35 15-37 U/L Alanine Aminotransferase 38 16-63 U/L Alkaline Phosphatase 48 46-116 U/L Total Protein 7.5 6.4-8.2 g/dL Albumin Level 3.2 3.4-5.0 g/dL Globulin 4.3 Albumin Globulin Ratio 0.7 Performing Lab: see note ML - [facility] LB PTT Reviewed date:09/13/2024 05:44:32 PM Interpretation: Performing Lab: Notes/Report: [facility] , Partial Thromboplastin Time 28.7 22.3-36.2 sec Performing Lab: see note ML - [facility] LB Prothrombin Time INR Reviewed date:09/13/2024 05:44:32 PM Interpretation: Performing Lab: Notes/Report: [facility] , Prothrombin Time 10.9 9.0-11.6 sec INR 1.03 DESIRED INR: 2.0-3.0 CONDITIONS NOT LISTED BELOW 2.5-3.5 FOR PROSTHETIC HEART VALVE REPLACEMENT 2.5-3.5 RECURRENT THROMBOSIS Performing Lab: see note ML - [facility] LB Troponin I High Sensitivity Reviewed date:09/13/2024 05:44:32 PM Interpretation: Performing Lab: Notes/Report: [facility] , Troponin I High Sensitivity 11.6 4.0-76.1 pg/mL CUT-OFF POINTS HAVE BEEN ESTABLISHED BASED ON THE FOURTH UNIVERSAL DEFINITION OF MYOCARDIAL INFARCTION. THE UPPER REFERENCE LIMIT (URL) OF TROPONIN, DEFINED THE 99TH PERCENTILE OF cTnI DISTRIBUTION IN A REFERENCE POPULATION, HAS BEEN CONFIRMED THE DECISION THRESHOLD FOR MO DIAGNOSIS. 99TH PERCENTILE = 76.2 PG/ML NOTE: HIGH-SENSITIVITY TROPONIN ASSAY IS NOT INTENDED TO BE USED IN ISOLATION BUT SHOULD BE INTERPRETED IN CONJUNCTION WITH OTHER DIAGNOSTIC AND CLINICAL INFORMATION. Performing Lab: see note ML - [facility] LB Ethanol Reviewed date:09/13/2024 05:44:32 PM Interpretation: Performing Lab: Notes/Report: [facility] , Ethanol <3 NOTE: 80 mg/dl is the legal limit for a blood alcohol level Performing Lab: see note ML - [facility] LB SARS-CoV-2 Ag* Reviewed date:09/13/2024 05:44:32 PM Interpretation: Performing Lab: Notes/Report: [facility] , SARS-CoV-2 Ag POSITIVE NEGATIVE This test has not been FDA cleared or approved, but has been authorized by the FDA under an Emergency Use Authorization (EUA) for use by authorized laboratories certified under CLIA that meet the requirements to perform moderate or high complexity testing. This test has been authorized only for the detection of proteins from SARS-CoV-2, not for any other viruses or pathogens. The emergency use of this test is authorized for the duration of the declaration that circumstances exist justifying the authorization of emergency use of in vitro diagnostic tests for detection and/or diagnosis of Covid-19 under section 564(b)(1) of the Act, 21 U.S.C. 360bbb-3(b)(1), unless the declaration is terminated or authorization is revoked sooner. Performing Lab: see note ML - [facility] LB Box Test Reviewed date:09/22/2024 04:22:28 PM Interpretation: Performing Lab: Notes/Report: BLOOD CULTURE (AEROBIC BOTTLE) [facility] , BOX Test Sent Out BLOOD CULTURE BOX Test Reference Lab [facility] BOX Test Date Sent 09/11/24 BOX Test Result SEE SCANNED REPORT SPECIMEN COLLECTION DATE IS 09/10/2024. --- 09/22/24 1232 --- BOX Test Result previously reported as: SEE SCANNED REPORT Performing Lab: see note ML - [facility] LB ECG 12 lead Reviewed date:09/13/2024 05:44:31 PM Interpretation: Performing Lab: Notes/Report: Source Facility: [facility]-[address] [place] [address] [place] [address] Electrocardiograph Report Signed Patient: TAYLOR MCCLELLAN MR#: [id number] : 1955 Acct:[id number] Age/Sex: 68 / M ADM Date: 09/09/24 Loc: MS 214-[address]: Norbert Jiang M.D. 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 Signed By: 09/12/24812 DD/ 31 TD/TT: Newsagent: [place] [address] Electrocardiograph Report Signed Patient: PEDRO LUIS MCCLELLAN PH MR#: [id number] : 1955 Acct:[id number] Age/Sex: 68 / M ADM Date: 09/09/24 Loc: MS 214-[address]: Dixie Jiang M.D. 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 Signed By: 09/12/24812 DD/ 31 TD/TT: Newsagent: Box Test Reviewed date:09/22/2024 04:22:28 PM Interpretation: Performing Lab: Notes/Report: ANAEROBIC BLOOD CULTURE (ANAEROBE BOTTLE) [facility] , BOX Test Sent Out BLOOD CULTURE BOX Test Reference Lab [facility] BOX Test Date Sent 09/11/23 BOX Test Result SEE SCANNED REPORT SPECIMEN COLLECTION DATE IS 09/10/2024. --- 09/22/24 1232 --- BOX Test Result previously reported as: SEE SCANNED REPORT Performing Lab: see note ML - [facility] LB BNP Reviewed date:09/13/2024 05:44:31 PM Interpretation: Performing Lab: Notes/Report: [facility] , NT Pro B Type Natriuretic Pept 557.0 <=900.0 pg/mL Performing Lab: see note ML - [facility] LB CBC AUTO DIFF Reviewed date:09/13/2024 05:44:31 PM Interpretation: Performing Lab: Notes/Report: [facility] , White Blood Count 5.4 4.0-11.0 10 3/uL Red Blood Count 4.06 4.70-6.10 10 6/uL Hemoglobin 12.4 14.0-18.0 g/dL Hematocrit 38.8 42.0-54.0 % Mean Corpuscular Volume 95.6 80.0-94.0 fL Mean Corpuscular Hemoglobin 30.5 25.9-34.0 pg Mean Corpuscular HGB Conc 32.0 29.9-35.2 g/dL Red Cell Distribution Width 13.4 11.0-15.0 % Platelet Count 175 150-450 10 3/uL Mean Platelet Volume 11.4 9.5-13.5 fL Neutrophils Percent Auto 68.2 43.0-75.0 % Lymphocytes Percent Auto 18.6 20.5-60.0 % Monocytes Percent Auto 12.2 1.7-12.0 % Eosinophils Percent Auto 0.2 0.9-7.0 % Basophils Percent Auto 0.4 0.2-2.0 % Immature Granulocytes Pct Auto 0.4 0.0-0.5 % Neutrophils Absolute Auto 3.7 1.4-6.5 10 3/uL Lymphocytes Absolute Auto 1.0 1.2-3.8 10 3/uL Monocytes Absolute Auto 0.7 0.3-0.8 10 3/uL Eosinophils Absolute Auto 0.0 0.0-0.7 10 3/uL Basophils Absolute Auto 0.0 0.0-0.1 10 3/uL Immature Granulocytes Abs Auto 0.02 0.00-0.03 10 3/uL Performing Lab: see note ML - [facility] LB MAGNESIUM Reviewed date:09/13/2024 05:44:31 PM Interpretation: Performing Lab: Notes/Report: [facility] , Magnesium 1.9 1.8-2.4 mg/dL Performing Lab: see note - [facility] LB PROF 14(COMP METB) Reviewed date:09/13/2024 05:44:31 PM Interpretation: Performing Lab: Notes/Report: [facility] , Sodium 144 136-145 mmol/L Potassium 4.3 3.5-5.1 mmol/L Chloride 108 98-107 mmol/L Carbon Dioxide 28.3 21.0-32.0 mmol/L Anion Gap 12.0 Glucose 118 74-106 mg/dL Blood Urea Nitrogen 26.0 7.0-18.0 mg/dL Creatinine 1.39 0.70-1.30 mg/dL Estimated GFR ( Aura >60 >=60 mL/min/1.73m 2 Estimated GFR (Non- Sandy 51 >=60 mL/min/1.73m 2 BUN Creatinine Ratio 18.7 Calcium 8.4 8.5-10.1 mg/dL Bilirubin Total 0.3 0.2-1.0 mg/dL Aspartate Amino Transferase 38 15-37 U/L Alanine Aminotransferase 39 16-63 U/L Alkaline Phosphatase 46 46-116 U/L Total Protein 7.1 6.4-8.2 g/dL Albumin Level 3.1 3.4-5.0 g/dL Globulin 4.0 Albumin Globulin Ratio 0.8 Performing Lab: see note - [facility] LB CT CHEST W CON Reviewed date:09/13/2024 05:44:31 PM Interpretation: Performing Lab: Notes/Report: Source Facility: [place] [address] [place] [address] CT Scan Report Signed Patient: TAYLOR MCCLELLAN MR#: [id number] : 1955 Acct:[id number] Age/Sex: 68 / M ADM Date: 09/09/24 Loc: ER Attending Dr: Ordering Physician: Jeet San Date of Service: 09/09/24 Procedure(s): CT chest w con Accession Number(s): [id number] cc: Norbert Jiang M.D. [place] [address] Patient Name: TAYLOR MCCLELLAN MRN: [id number] date: 1955 Sex: M Assigned Patient Location: ER Current Patient Location: ER Accession/Order Number: [id number] Exam Date: 09/09/2024 23:59 Report Date: 09/10/2024 01:25 At the request of: JEET SAN Procedure: CT chest w con EXAMINATION: CT abdomen pelvis w con, CT chest w con HISTORY: fall, abdominal pain COMPARISON: No relevant comparison available. TECHNIQUE: Axial, Coronal, and Sagittal CT images were obtained without and/or with IV contrast as indicated by examination type. Dose reduction techniques were achieved by using automated exposure control and/or adjustment of mA and/or kV according to patient size and/or use of iterative reconstruction technique. FINDINGS: LUNGS: Mild hazy opacities throughout both lungs. Mild emphysematous changes. PLEURA: No mass or effusion. VASCULATURE: No visible pulmonary arterial thrombus or attenuation. JULIA: No mass or adenopathy. MEDIASTINUM: No mass or adenopathy. CARDIAC: No enlargement, pericardial thickening, or pericardial effusion. AORTA: No aneurysm or dissection.. CHEST WALL: No mass or axillary adenopathy. LIVER: No enlargement, atrophy, abnormal density, or significant focal lesion. BILIARY: No dilatation or calcification. PANCREAS: No lesion, fluid collection, ductal dilatation, or atrophy. SPLEEN: No enlargement or focal lesion. ADRENALS: No mass or enlargement. KIDNEYS: No mass, obstruction, or calcification. BOWEL/MESENTERY: No visible mass, obstruction, or bowel wall thickening. AORTA/VASCULAR: Marked atherosclerotic disease of the abdominal aorta and branches. No aneurysm. RETROPERITONEUM: No mass or adenopathy. LYMPH NODES: No adenopathy. URINARY BLADDER: No visible focal wall thickening, lesion, or calculus. PELVIC ORGANS: No visible mass. Pelvic organs appropriate for patient age. ABDOMINAL WALL: Small fat filled left inguinal hernia without strangulation. BONES: Mild compression fracture of L1 with increased density adjacent the superior endplate. Posterior mechanical fusion of L4-L5 on the right. Moderate marked disc space narrowing L4-L5, L5-S1. OTHER: Negative. CT/CT chest w con IMPRESSION: 1. Mild to moderate haziness throughout both lungs suggestive of pulmonary edema. 2. Mild compression fracture of L1 suspected to be acute to subacute. This is new compared to 04/14/2024. 3. No acute solid or hollow organ injury of the chest, abdomen, pelvis. Electronically authenticated by: LIAM ADORNO Date: 09/10/2024 01:25 Dictated By: Liam Adorno M.D. Signed By: 09/10/24126 DD/ 4 TD/TT: Newsagent: [place] [address] CT Scan Report Signed Patient: PEDRO LUIS MCCLELLAN PH MR#: [id number] : 1955 Acct:[id number] Age/Sex: 68 / M ADM Date: 09/09/24 Loc: ER Attending Dr: Ordering Physician: Jeet San Date of Service: 09/09/24 Procedure(s): CT [facility] [facility] w con Accession Number(s): [id number] cc: Norbert Jiang M.D. [place] [id number] Patient Name: TAYLOR MCCLELLAN MRN: [id number] date: 1955 Sex: M Assigned Patient Location: ER Current Patient Loca tion: ER Accession/Order Numb er: [id number] Exam Date: 09/09/2024 23:59 Report Date: 09/10/2024 01:25 At the request of: JEET SAN Procedure: CT chest w con EXAMINATION: CT abdo men pelvis w con, CT chest w con HISTORY: fall, abdom inal pain COMPARISON: No relev ant comparison available. TECHNIQUE: Axial, Coronal, and Sagittal CT images were obtained without and/or with IV contrast as indicated by examination type. Dose reduction techniques were achieved by [facility] automated exposure control and/or adjustment of mA and/or kV according to patient size and/or use of iterative reconstruction technique. FINDINGS: LUNGS: Mild hazy opacities throughout both lungs. Mild emphysematous changes. PLEURA: No mass or effusion. VASCULATURE: No visi ble pulmonary arterial thrombus or attenuation. JULIA: No mass or adenopathy. MEDIASTINUM: No mass or adenopathy. CARDIAC: No enlargem ent, pericardial thickening, or pericardial effusion. AORTA: No aneurysm o r dissection.. CHEST WALL: No mass or axillary adenopathy. LIVER: No enlargemen t, atrophy, abnormal density, or significant focal lesion. BILIARY: No dilatati on or calcification. PANCREAS: No lesion, fluid collection, ductal dilatation, or atrophy. SPLEEN: No enlargeme nt or focal lesion. ADRENALS: No mass or enlargement. KIDNEYS: No mass, obstruction, or calcification. BOWEL/MESENTERY: No visible mass, obstruction, or bowel wall thickening. AORTA/VASCULAR: Alejandro ed atherosclerotic disease of the abdominal aorta and branches. No aneurysm. RETROPERITONEUM: No mass or adenopathy. LYMPH NODES: No adenopathy. URINARY BLADDER: No visible focal wall thickening, lesion, or calculus. PELVIC ORGANS: No vi sible mass. Pelvic organs appropriate for patient age. ABDOMINAL WALL: Smal l fat filled left inguinal hernia without strangulation. BONES: Mild compress ion fracture of L1 with increased density adjacent the superior endplate. Posterior mechanical fusion of L4-L5 on the right. Moderate marked disc space narrowing L4-L5, L5-S1. OTHER: Negative. C T/CT chest w con IMPRESSION: 1. Mild to moderate haziness throughout both lungs suggestive of pulmonary edema. 2. Mild compression fracture of L1 suspected to be acute to subacute. This is new compared to 04/14/2024. 3. No acute solid or hollow organ injury of the chest, abdomen, pelvis. Electronically authenticated by: LIAM ADORNO Date: 09/10/2024 01:25 Dictated By: Liam Adorno M.D. Signed By: 09/10/24126 DD/ 4 TD/TT: Newsagent: CT head/brain wo con Reviewed date:09/13/2024 05:44:31 PM Interpretation: Performing Lab: Notes/Report: Source Facility: [place] [address] [place] [address] CT Scan Report Signed Patient: TAYLOR MCCLELLAN MR#: [id number] : 1955 Acct:[id number] Age/Sex: 68 / M ADM Date: 09/09/24 Loc: ER Attending Dr: Ordering Physician: Jeet San Date of Service: 09/09/24 Procedure(s): CT head/brain wo con Accession Number(s): [id number] cc: Norbert Jiang M.D. [address] [address] Patient Name: TAYLOR MCCLELLAN MRN: [facility]:[id number] date: 1955 Sex: M Assigned Patient Location: ER Current Patient Location: ER Accession/Order Number: [id number] Exam Date: 09/09/2024 23:59 Report Date: 09/10/2024 01:17 At the request of: JEET SAN Procedure: CT head/brain wo con EXAM: CT head/brain wo con, CT cervical spine wo con INDICATION: 68 years old; Male. Fall. Change in mental status. TECHNIQUE: CT Head (ax/cor/sag reformats). Ionizing radiation dose reduced via iterative reconstruction/FBP blend and body size kV/mA adjustment. Comparison: Head CT dated 05/21/2024. FINDINGS: POSTOPERATIVE CHANGES: None. BRAIN PARENCHYMA: No intraparenchymal or extra-axial hemorrhage. No mass effect. No midline shift or herniation. 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 Normal lange/white differentiation. VENTRICLES/EXTRA-AXIAL SPACES: Enlarged, consistent with atrophy. SINUSES/MASTOIDS: The visualized sinuses are clear although the maxillary sinuses are not completely included. Mastoids and middle ears are clear. MSK: No displaced or depressed calvarial fracture. OTHER: No hyperdense intraluminal thrombus. Vascular calcifications are present. A partially empty sella is noted. TECHNIQUE: CT imaging of the cervical spine was performed. IV contrast: None. Dose reduction techniques were achieved by using automated exposure control and/or adjustment of mA and/or kV according to patient size and/or use of iterative reconstruction technique. COMPARISON: Images from a CT angiogram of the neck dated 04/29/2024. FINDINGS: POSTOPERATIVE CHANGES: None. ALIGNMENT: Nonspecific straightening of the normal cervical curve. COMPRESSION FRACTURES: No fracture or vertebral body collapse. No bone displacement. No asymmetric widening of the facets. PREVERTEBRAL SOFT TISSUES: Normal. CRANIOCERVICAL JUNCTION: There is a normal relationship of the occipital condyles, lateral masses of C1, and articular surfaces of C2. The base of the dens and body of C2 are intact. There is narrowing of the predental space with spurring arising from the anterior arch of C1 and the tip of the dens. POSTERIOR FOSSA: The cerebellar tonsils are above the foramen magnum. Disc levels: C2-C3: No disc herniation. No spinal canal or foraminal narrowing. C3-C4: Disc space narrowing. Anterior osteophyte formation. Broad-based posterior disc osteophyte complex. Mild to moderate central canal stenosis. Neural foramina are patent. C4-C5: Disc space narrowing. Bulky bridging anterior osteophyte formation. Broad-based central disc osteophyte complex posteriorly projecting greater to the left. Moderate to severe central canal stenosis. Uncovertebral joint degeneration. Moderate right and severe left foraminal stenosis. C5-C6: Anterior osteophyte formation. Central disc osteophyte complex posteriorly. Central canal patent. Neural foramina patent. C6-C7: Anterior osteophyte formation. Central canal and neural foramina patent. C7-T1: Beam hardening artifacts. Anterior osteophytes. Central canal patent. Neural foramina patent. UPPER THORACIC SPINE: At T1-T2, Beam hardening artifacts. Anterior osteophytes. Central canal and neural foramina patent. OTHER: No thyroid nodule or adenopathy. Extracranial vascular calcification. Vascular stent in the carotid on the right. These also see the separate dictations of the CT the chest, abdomen, and pelvis. CT/CT head/brain wo con IMPRESSION: 1. No acute intracranial abnormality. No hemorrhage or mass effect. 2. Old lacunar infarctions. 3. Atrophy. 4. Vascular calcifications. 5. Multilevel cervical spondylosis. No acute fracture. Please also see the separate dictations of the CT the chest, abdomen, and pelvis. Electronically authenticated by: ERICKSON PALACIO Date: 09/10/2024 01:17 Dictated By: Erickson Palacio M.D. Signed By: 09/10/24 0120 DD/ 0117 TD/TT: Newsagent: [place] [address] CT Scan Report Signed Patient: PEDRO LUIS MCCLELLAN PRASHANTH Meehan MR#: [id number] : 1955 Acct:[id number] Age/Sex: 68 / M ADM Date: 09/09/24 Loc: ER Attending Dr: Ordering Physician: Jeet San Date of Service: 09/09/24 Procedure(s): CT head/brain wo con Accession Number(s): [id number] cc: Norbert Jiang M.D. [place] [id number] Patient Name: TAYLOR MCCLELLAN MRN: [facility]:[id number] date: 1955 Sex: M Assigned Patient Location: ER Current Patient Loca tion: ER Accession/Order Numb er: [id number] Exam Date: 09/09/2024 23:59 Report Date: 09/10/2024 01:17 At the request of: JEET SAN Procedure: CT head/b rain wo con EXAM: CT head/brain wo con, CT cervical spine wo con INDICATION: 68 years old; Male. Fall. Change in mental status. TECHNIQUE: CT Head (ax/cor/sag reformats). Ionizing radiation dose reduced via iterative reconstruction/FBP blend and body size kV/mA adjustment. Comparison: Head CT dated 05/21/2024. FINDINGS: POSTOPERATIVE CHANGE S: None. BRAIN PARENCHYMA: No intraparenchymal or extra-axial hemorrhage. No mass effect. No midline s hift or herniation. Old lacunar infarctions are present in the right thalamus a nd in the left gangliocapsular region. Normal lange/white differentiation. VENTRICLES/EXTRA-AXI AL SPACES: Enlarged, consistent with atrophy. SINUSES/MASTOIDS: Th e visualized sinuses are clear although the maxillary sinuses are not completely included. Mastoids and middle ears are clear. MSK: No displaced or depressed calvarial fracture. OTHER: No hyperdense intraluminal thrombus. Vascular calcifications are present. A partially empty sella is noted. TECHNIQUE: CT imagin g of the cervical spine was performed. IV contrast: None. Dose reduction techn iques were achieved by using automated exposure control and/or adjustment of mA and/or kV according to patient size and/or use of iterative reconstruc tion technique. COMPARISON: Images f rom a CT angiogram of the neck dated 04/29/2024. FINDINGS: POSTOPERATIVE CHANGE S: None. ALIGNMENT: Nonspecif ic straightening of the normal cervical curve. COMPRESSION FRACTURE S: No fracture or vertebral body collapse. No bone displacement. No asymmetric widening of the facets. PREVERTEBRAL SOFT TISSUES: Normal. CRANIOCERVICAL JUNCT ION: There is a normal relationship of the occipital condyles, lateral ma sses of C1, and articular surfaces of C2. The base of the dens and body of C2 are intact. There is narrowing of the predental space with spurring arising fro m the anterior arch of C1 and the tip of the dens. POSTERIOR FOSSA: The cerebellar tonsils are above the foramen magnum. Disc levels: C2-C3: No disc herniation. No spinal canal or foraminal narrowing. C3-C4: Disc space narrowing. Anterior osteophyte formation. Broad-based posterior disc osteo phyte complex. Mild to moderate central canal stenosis. Neural foramina are patent. C4-C5: Disc space narrowing. Bulky bridging anterior osteophyte formation. Broad-based central disc osteophyte complex posteriorly projecting greater to the left. Moderate t o severe central canal stenosis. Uncovertebral joint degeneration. Modera te right and severe left foraminal stenosis. C5-C6: Anterior osteophyte formation. Central disc osteophyte complex posteriorly. Central canal patent. Neural foramina patent. C6-C7: Anterior osteophyte formation. Central canal and neural foramina patent. C7-T1: Beam hardenin g artifacts. Anterior osteophytes. Central canal patent. Neural foramina patent. UPPER THORACIC SPINE : At T1-T2, Beam hardening artifacts. Anterior osteophytes. Central canal and ne ural foramina patent. OTHER: No thyroid no dule or adenopathy. Extracranial vascular calcification. Vascular stent in th e carotid on the right. These also see the separate dictations of the CT the chest, abdomen, and pelvis. C T/CT head/brain wo con IMPRESSION: 1. No acute intracra nial abnormality. No hemorrhage or mass effect. 2. Old lacunar infarctions. 3. Atrophy. 4. Vascular calcifications. 5. Multilevel cervic al spondylosis. No acute fracture. Please also see the separate dictations of the CT the chest, abdomen, and pelvis. Electronically authenticated by: ERICKSON PALACIO Date: 09/10/2024 01:17 Dictated By: Erickson Palacio M.D. Signed By: 09/10/24 0120 DD/ 0117 TD/TT: Newsagent: CT abdomen pelvis w con Reviewed date:09/13/2024 05:44:31 PM Interpretation: Performing Lab: Notes/Report: Source Facility: [place] [address] CT Scan Report Signed Patient: TAYLOR MCCLELLAN MR#: [id number] : 1955 Acct:[id number] Age/Sex: 68 / M ADM Date: 09/09/24 Loc: ER Attending Dr: Ordering Physician: Jeet San Date of Service: 09/09/24 Procedure(s): CT abdomen pelvis w con Accession Number(s): [id number] cc: Norbert Jiang M.D. [place] [id number] Patient Name: TAYLOR MCCLELLAN MRN: [id number] date: 1955 Sex: M Assigned Patient Location: ER Current Patient Location: ER Accession/Order Number: [id number] Exam Date: 09/09/2024 23:59 Report Date: 09/10/2024 01:25 At the request of: JEET SAN Procedure: CT abdomen pelvis w con EXAMINATION: CT abdomen pelvis w con, CT chest w con HISTORY: fall, abdominal pain COMPARISON: No relevant comparison available. TECHNIQUE: Axial, Coronal, and Sagittal CT images were obtained without and/or with IV contrast as indicated by examination type. Dose reduction techniques were achieved by using automated exposure control and/or adjustment of mA and/or kV according to patient size and/or use of iterative reconstruction technique. FINDINGS: LUNGS: Mild hazy opacities throughout both lungs. Mild emphysematous changes. PLEURA: No mass or effusion. VASCULATURE: No visible pulmonary arterial thrombus or attenuation. JULIA: No mass or adenopathy. MEDIASTINUM: No mass or adenopathy. CARDIAC: No enlargement, pericardial thickening, or pericardial effusion. AORTA: No aneurysm or dissection.. CHEST WALL: No mass or axillary adenopathy. LIVER: No enlargement, atrophy, abnormal density, or significant focal lesion. BILIARY: No dilatation or calcification. PANCREAS: No lesion, fluid collection, ductal dilatation, or atrophy. SPLEEN: No enlargement or focal lesion. ADRENALS: No mass or enlargement. KIDNEYS: No mass, obstruction, or calcification. BOWEL/MESENTERY: No visible mass, obstruction, or bowel wall thickening. AORTA/VASCULAR: Marked atherosclerotic disease of the abdominal aorta and branches. No aneurysm. RETROPERITONEUM: No mass or adenopathy. LYMPH NODES: No adenopathy. URINARY BLADDER: No visible focal wall thickening, lesion, or calculus. PELVIC ORGANS: No visible mass. Pelvic organs appropriate for patient age. ABDOMINAL WALL: Small fat filled left inguinal hernia without strangulation. BONES: Mild compression fracture of L1 with increased density adjacent the superior endplate. Posterior mechanical fusion of L4-L5 on the right. Moderate marked disc space narrowing L4-L5, L5-S1. OTHER: Negative. CT/CT abdomen pelvis w con IMPRESSION: 1. Mild to moderate haziness throughout both lungs suggestive of pulmonary edema. 2. Mild compression fracture of L1 suspected to be acute to subacute. This is new compared to 04/14/2024. 3. No acute solid or hollow organ injury of the chest, abdomen, pelvis. Electronically authenticated by: LIAM ADORNO Date: 09/10/2024 01:25 Dictated By: Liam Adorno M.D. Signed By: 09/10/24127 DD/ 4 TD/TT: Newsagent: [place] [address] CT Scan Report Signed Patient: PEDRO LUIS MCCLELLAN PH MR#: [id number] : 1955 Acct:[id number] Age/Sex: 68 / M ADM Date: 09/09/24 Loc: ER Attending Dr: Ordering Physician: Jeet San Date of Service: 09/09/24 Procedure(s): CT abd omen pelvis w con Accession Number(s): [id number] cc: Norbert Jiang M.D. [place] [address] Patient Name: TAYLOR MCCLELLAN MRN: [facility]:[id number] date: 1955 Sex: M Assigned Patient Location: ER Current Patient Loca tion: ER Accession/Order Numb er: [id number] Exam Date: 09/09/2024 23:59 Report Date: 09/10/2024 01:25 At the request of: JEET SAN Procedure: CT abdome n pelvis w con EXAMINATION: CT abdo men pelvis w con, CT chest w con HISTORY: fall, abdom inal pain COMPARISON: No relev ant comparison available. TECHNIQUE: Axial, Coronal, and Sagittal CT images were obtained without and/or with IV contrast as indicated by examination type. Dose reduction techniques were achieved by usi ng automated exposure control and/or adjustment of mA and/or kV according to patient size and/or use of iterative reconstruction technique. FINDINGS: LUNGS: Mild hazy opacities throughout both lungs. Mild emphysematous changes. PLEURA: No mass or effusion. VASCULATURE: No visi ble pulmonary arterial thrombus or attenuation. JULIA: No mass or adenopathy. MEDIASTINUM: No mass or adenopathy. CARDIAC: No enlargem ent, pericardial thickening, or pericardial effusion. AORTA: No aneurysm o r dissection.. CHEST WALL: No mass or axillary adenopathy. LIVER: No enlargemen t, atrophy, abnormal density, or significant focal lesion. BILIARY: No dilatati on or calcification. PANCREAS: No lesion, fluid collection, ductal dilatation, or atrophy. SPLEEN: No enlargeme nt or focal lesion. ADRENALS: No mass or enlargement. KIDNEYS: No mass, obstruction, or calcification. BOWEL/MESENTERY: No visible mass, obstruction, or bowel wall thickening. AORTA/VASCULAR: Alejandro ed atherosclerotic disease of the abdominal aorta and branches. No aneurysm. RETROPERITONEUM: No mass or adenopathy. LYMPH NODES: No adenopathy. URINARY BLADDER: No visible focal wall thickening, lesion, or calculus. PELVIC ORGANS: No vi sible mass. Pelvic organs appropriate for patient age. ABDOMINAL WALL: Smal l fat filled left inguinal hernia without strangulation. BONES: Mild compress ion fracture of L1 with increased density adjacent the superior endplate. Posterior mechanical fusion of L4-L5 on the right. Moderate marked disc space narrowing L4-L5, L5-S1. OTHER: Negative. C T/CT abdomen pelvis w con IMPRESSION: 1. Mild to moderate haziness throughout both lungs suggestive of pulmonary edema. 2. Mild compression fracture of L1 suspected to be acute to subacute. This is new compared to 04/14/2024. 3. No acute solid or hollow organ injury of the chest, abdomen, pelvis. Electronically authenticated by: LIAM ADORNO Date: 09/10/2024 01:25 Dictated By: Liam Adorno M.D. Signed By: 09/10/24127 DD/ 4 TD/TT: Newsagent: CT cervical spine wo con Reviewed date:09/13/2024 05:44:31 PM Interpretation: Performing Lab: Notes/Report: Source Facility: [place] [address] CT Scan Report Signed Patient: TAYLOR MCCLELLAN MR#: [id number] : 1955 Acct:[id number] Age/Sex: 68 / M ADM Date: 09/09/24 Loc: ER Attending Dr: Ordering Physician: Jeet San Date of Service: 09/09/24 Procedure(s): CT cervical spine wo con Accession Number(s): [id number] cc: Norbert Jiang M.D. [place] [address] Patient Name: TAYLOR MCCLELLAN MRN: [id number] date: 1955 Sex: M Assigned Patient Location: ER Current Patient Location: ER Accession/Order Number: [id number] Exam Date: 09/09/2024 23:59 Report Date: 09/10/2024 01:17 At the request of: JEET SAN Procedure: CT cervical spine wo con EXAM: CT head/brain wo con, CT cervical spine wo con INDICATION: 68 years old; Male. Fall. Change in mental status. TECHNIQUE: CT Head (ax/cor/sag reformats). Ionizing radiation dose reduced via iterative reconstruction/FBP blend and body size kV/mA adjustment. Comparison: Head CT dated 05/21/2024. FINDINGS: POSTOPERATIVE CHANGES: None. BRAIN PARENCHYMA: No intraparenchymal or extra-axial hemorrhage. No mass effect. No midline shift or herniation. 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 Normal lange/white differentiation. VENTRICLES/EXTRA-AXIAL SPACES: Enlarged, consistent with atrophy. SINUSES/MASTOIDS: The visualized sinuses are clear although the maxillary sinuses are not completely included. Mastoids and middle ears are clear. MSK: No displaced or depressed calvarial fracture. OTHER: No hyperdense intraluminal thrombus. Vascular calcifications are present. A partially empty sella is noted. TECHNIQUE: CT imaging of the cervical spine was performed. IV contrast: None. Dose reduction techniques were achieved by using automated exposure control and/or adjustment of mA and/or kV according to patient size and/or use of iterative reconstruction technique. COMPARISON: Images from a CT angiogram of the neck dated 04/29/2024. FINDINGS: POSTOPERATIVE CHANGES: None. ALIGNMENT: Nonspecific straightening of the normal cervical curve. COMPRESSION FRACTURES: No fracture or vertebral body collapse. No bone displacement. No asymmetric widening of the facets. PREVERTEBRAL SOFT TISSUES: Normal. CRANIOCERVICAL JUNCTION: There is a normal relationship of the occipital condyles, lateral masses of C1, and articular surfaces of C2. The base of the dens and body of C2 are intact. There is narrowing of the predental space with spurring arising from the anterior arch of C1 and the tip of the dens. POSTERIOR FOSSA: The cerebellar tonsils are above the foramen magnum. Disc levels: C2-C3: No disc herniation. No spinal canal or foraminal narrowing. C3-C4: Disc space narrowing. Anterior osteophyte formation. Broad-based posterior disc osteophyte complex. Mild to moderate central canal stenosis. Neural foramina are patent. C4-C5: Disc space narrowing. Bulky bridging anterior osteophyte formation. Broad-based central disc osteophyte complex posteriorly projecting greater to the left. Moderate to severe central canal stenosis. Uncovertebral joint degeneration. Moderate right and severe left foraminal stenosis. C5-C6: Anterior osteophyte formation. Central disc osteophyte complex posteriorly. Central canal patent. Neural foramina patent. C6-C7: Anterior osteophyte formation. Central canal and neural foramina patent. C7-T1: Beam hardening artifacts. Anterior osteophytes. Central canal patent. Neural foramina patent. UPPER THORACIC SPINE: At T1-T2, Beam hardening artifacts. Anterior osteophytes. Central canal and neural foramina patent. OTHER: No thyroid nodule or adenopathy. Extracranial vascular calcification. Vascular stent in the carotid on the right. These also see the separate dictations of the CT the chest, abdomen, and pelvis. CT/CT cervical spine wo con IMPRESSION: 1. No acute intracranial abnormality. No hemorrhage or mass effect. 2. Old lacunar infarctions. 3. Atrophy. 4. Vascular calcifications. 5. Multilevel cervical spondylosis. No acute fracture. Please also see the separate dictations of the CT the chest, abdomen, and pelvis. Electronically authenticated by: ERICKSON PALACIO Date: 09/10/2024 01:17 Dictated By: Erickson Palacio M.D. Signed By: 09/10/24119 DD/ 6 TD/TT: Newsagent: [place] [address] CT Scan Report Signed Patient: PEDRO LUIS MCCLELLAN PH MR#: [id number] : 1955 Acct:[id number] Age/Sex: 68 / M ADM Date: 09/09/24 Loc: ER Attending Dr: Ordering Physician: Jeet San Date of Service: 09/09/24 Procedure(s): CT cer vical spine wo con Accession Number(s): [id number] cc: Norbert Jiang M.D. [place] [address] Patient Name: TAYLOR MCCLELLAN MRN: [id number] date: 1955 Sex: M Assigned Patient Location: ER Current Patient Loca tion: ER Accession/Order Numb er: [id number] Exam Date: 09/09/2024 23:59 Report Date: 09/10/2024 01:17 At the request of: JEET SAN Procedure: CT cervic al spine wo con EXAM: CT head/brain wo con, CT cervical spine wo con INDICATION: 68 years old; Male. Fall. Change in mental status. TECHNIQUE: CT Head (ax/cor/sag reformats). Ionizing radiation dose reduced via iterative reconstruction/FBP blend and body size kV/mA adjustment. Comparison: Head CT dated 05/21/2024. FINDINGS: POSTOPERATIVE CHANGE S: None. BRAIN PARENCHYMA: No intraparenchymal or extra-axial hemorrhage. No mass effect. No midline s hift or herniation. Old lacunar infarctions are present in the right thalamus a nd in the left gangliocapsular region. Normal lange/white differentiation. VENTRICLES/EXTRA-AXI AL SPACES: Enlarged, consistent with atrophy. SINUSES/MASTOIDS: Th e visualized sinuses are clear although the maxillary sinuses are not completely included. Mastoids and middle ears are clear. MSK: No displaced or depressed calvarial fracture. OTHER: No hyperdense intraluminal thrombus. Vascular calcifications are present. A partially empty sella is noted. TECHNIQUE: CT imagin g of the cervical spine was performed. IV contrast: None. Dose reduction techn iques were achieved by using automated exposure control and/or adjustment of mA and/or kV according to patient size and/or use of iterative reconstruc tion technique. COMPARISON: Images f rom a CT angiogram of the neck dated 04/29/2024. FINDINGS: POSTOPERATIVE CHANGE S: None. ALIGNMENT: Nonspecif ic straightening of the normal cervical curve. COMPRESSION FRACTURE S: No fracture or vertebral body collapse. No bone displacement. No asymmetric widening of the facets. PREVERTEBRAL SOFT TISSUES: Normal. CRANIOCERVICAL JUNCT ION: There is a normal relationship of the occipital condyles, lateral ma sses of C1, and articular surfaces of C2. The base of the dens and body of C2 are intact. There is narrowing of the predental space with spurring arising fro m the anterior arch of C1 and the tip of the dens. POSTERIOR FOSSA: The cerebellar tonsils are above the foramen magnum. Disc levels: C2-C3: No disc herniation. No spinal canal or foraminal narrowing. C3-C4: Disc space narrowing. Anterior osteophyte formation. Broad-based posterior disc osteo phyte complex. Mild to moderate central canal stenosis. Neural foramina are patent. C4-C5: Disc space narrowing. Bulky bridging anterior osteophyte formation. Broad-based central disc osteophyte complex posteriorly projecting greater to the left. Moderate t o severe central canal stenosis. Uncovertebral joint degeneration. Modera te right and severe left foraminal stenosis. C5-C6: Anterior osteophyte formation. Central disc osteophyte complex posteriorly. Central canal patent. Neural foramina patent. C6-C7: Anterior osteophyte formation. Central canal and neural foramina patent. C7-T1: Beam hardenin g artifacts. Anterior osteophytes. Central canal patent. Neural foramina patent. UPPER THORACIC SPINE : At T1-T2, Beam hardening artifacts. Anterior osteophytes. Central canal and ne ural foramina patent. OTHER: No thyroid no dule or adenopathy. Extracranial vascular calcification. Vascular stent in th e carotid on the right. These also see the separate dictations of the CT the chest, abdomen, and pelvis. C T/CT cervical spine wo con IMPRESSION: 1. No acute intracra nial abnormality. No hemorrhage or mass effect. 2. Old lacunar infarctions. 3. Atrophy. 4. Vascular calcifications. 5. Multilevel cervic al spondylosis. No acute fracture. Please also see the separate dictations of the CT the chest, abdomen, and pelvis. Electronically authenticated by: ERICKSON PALACIO Date: 09/10/2024 01:17 Dictated By: Erickson Palacio M.D. Signed By: 09/10/24 0120 DD/ 0117 TD/TT: Newsagent: Blood Culture 2 Reviewed date:09/16/2024 07:13:41 PM Interpretation: Performing Lab: Notes/Report: [facility] , Blood Culture 2 See Below For Report Blood Culture 2 NG5D NO GROWTH AT 5 DAYS. Performing Lab: see note ML - [facility] LB CBC AUTO DIFF Reviewed date:09/13/2024 05:44:31 PM Interpretation: Performing Lab: Notes/Report: [facility] , White Blood Count 4.9 4.0-11.0 10 3/uL Red Blood Count 3.80 4.70-6.10 10 6/uL Hemoglobin 11.6 14.0-18.0 g/dL Hematocrit 35.5 42.0-54.0 % Mean Corpuscular Volume 93.4 80.0-94.0 fL Mean Corpuscular Hemoglobin 30.5 25.9-34.0 pg Mean Corpuscular HGB Conc 32.7 29.9-35.2 g/dL Red Cell Distribution Width 13.1 11.0-15.0 % Platelet Count 173 150-450 10 3/uL Mean Platelet Volume 11.4 9.5-13.5 fL Neutrophils Percent Auto 44.2 43.0-75.0 % Lymphocytes Percent Auto 46.4 20.5-60.0 % Monocytes Percent Auto 8.8 1.7-12.0 % Eosinophils Percent Auto 0.0 0.9-7.0 % Basophils Percent Auto 0.2 0.2-2.0 % Immature Granulocytes Pct Auto 0.4 0.0-0.5 % Neutrophils Absolute Auto 2.2 1.4-6.5 10 3/uL Lymphocytes Absolute Auto 2.3 1.2-3.8 10 3/uL Monocytes Absolute Auto 0.4 0.3-0.8 10 3/uL Eosinophils Absolute Auto 0.0 0.0-0.7 10 3/uL Basophils Absolute Auto 0.0 0.0-0.1 10 3/uL Immature Granulocytes Abs Auto 0.02 0.00-0.03 10 3/uL Performing Lab: see note - [facility] LB PROF CHEM 8 (BAS METB) Reviewed date:09/13/2024 05:44:31 PM Interpretation: Performing Lab: Notes/Report: [facility] , Sodium 146 136-145 mmol/L Potassium 3.9 3.5-5.1 mmol/L Chloride 111 98-107 mmol/L Carbon Dioxide 27.5 21.0-32.0 mmol/L Anion Gap 11.4 Glucose 105 74-106 mg/dL Blood Urea Nitrogen 25.0 7.0-18.0 mg/dL Creatinine 1.26 0.70-1.30 mg/dL Estimated GFR ( Aura >60 >=60 mL/min/1.73m 2 Estimated GFR (Non- Sandy 57 >=60 mL/min/1.73m 2 BUN Creatinine Ratio 19.8 Calcium 8.3 8.5-10.1 mg/dL Performing Lab: see note - [facility] LB CBC AUTO DIFF Reviewed date:09/27/2024 04:04:10 PM Interpretation: Performing Lab: Notes/Report: [facility] , White Blood Count 5.8 4.0-11.0 10 3/uL Red Blood Count 4.47 4.70-6.10 10 6/uL Hemoglobin 13.7 14.0-18.0 g/dL Hematocrit 41.6 42.0-54.0 % Mean Corpuscular Volume 93.1 80.0-94.0 fL Mean Corpuscular Hemoglobin 30.6 25.9-34.0 pg Mean Corpuscular HGB Conc 32.9 29.9-35.2 g/dL Red Cell Distribution Width 13.6 11.0-15.0 % Platelet Count 207 150-450 10 3/uL Mean Platelet Volume 12.3 9.5-13.5 fL Performing Lab: see note - [facility] LB PROF 14(COMP METB) Reviewed date:09/27/2024 04:04:10 PM Interpretation: Performing Lab: Notes/Report: [facility] , Sodium 147 136-145 mmol/L Potassium 4.1 3.5-5.1 mmol/L Chloride 109 98-107 mmol/L Carbon Dioxide 25.9 21.0-32.0 mmol/L Anion Gap 16.2 Glucose 189 74-106 mg/dL Blood Urea Nitrogen 23.0 7.0-18.0 mg/dL Creatinine 1.40 0.70-1.30 mg/dL Estimated GFR ( Aura >60 >=60 mL/min/1.73m 2 Estimated GFR (Non- Sandy 50 >=60 mL/min/1.73m 2 BUN Creatinine Ratio 16.4 Calcium 8.7 8.5-10.1 mg/dL Bilirubin Total 0.6 0.2-1.0 mg/dL Aspartate Amino Transferase 21 15-37 U/L Alanine Aminotransferase 24 16-63 U/L Alkaline Phosphatase 43 46-116 U/L Total Protein 6.6 6.4-8.2 g/dL Albumin Level 3.1 3.4-5.0 g/dL Globulin 3.5 Albumin Globulin Ratio 0.9 Performing Lab: see note - [facility] LB Manual Differential Reviewed date:09/27/2024 04:04:10 PM Interpretation: Performing Lab: Notes/Report: [facility] , Segmented Neutrophils % Manual 43.0 43.0-75.0 Band Neutrophils % 32.0 0-5 % Lymphocytes Percent Manual 16.0 20.5-60.0 % Monocytes Percent Manual 9.0 1.7-12.0 % Eosinophils Percent Manual 0.0 0.9-7.0 % Basophils Percent Manual 0.0 0.2-2.0 % Segmented Neut Absolute Manual 2.49 1.4-6.5 10 3/uL Band Neutrophils Absolute 1.9 0.0-0.3 10 3/uL Lymphocytes Absolute Manual 0.92 1.20-3.80 10 3/uL Monocytes Absolute Manual 0.52 0.30-0.80 10 3/uL Eosinophils Absolute Manual 0.00 0.00-0.70 10 3/uL Basophils Abs Manual 0.00 0.00-0.10 1 0 3/uL Anisocytosis 1+ Ovalocytes 1+ Performing Lab: see note ML - [facility] LB BNP Reviewed date:09/29/2024 01:14:33 PM Interpretation: Performing Lab: Notes/Report: [facility] , NT Pro B Type Natriuretic Pept 1548.0 <=900.0 pg/mL RESULTS CALLED TO HOLLY DOW RN @BY Lizeth Pugh at 2151 Performing Lab: see note - [facility] LB CBC AUTO DIFF Reviewed date:09/29/2024 01:14:33 PM Interpretation: Performing Lab: Notes/Report: [facility] , White Blood Count 4.4 4.0-11.0 10 3/uL Red Blood Count 3.90 4.70-6.10 10 6/uL Hemoglobin 11.9 14.0-18.0 g/dL Hematocrit 36.3 42.0-54.0 % Mean Corpuscular Volume 93.1 80.0-94.0 fL Mean Corpuscular Hemoglobin 30.5 25.9-34.0 pg Mean Corpuscular HGB Conc 32.8 29.9-35.2 g/dL Red Cell Distribution Width 13.4 11.0-15.0 % Platelet Count 171 150-450 10 3/uL Mean Platelet Volume 12.4 9.5-13.5 fL Performing Lab: see note - [facility] LB INFLUENZA A AND B AG Reviewed date:09/29/2024 01:14:33 PM Interpretation: Performing Lab: Notes/Report: [facility] , Influenza Virus A Antigen Negative Negative for Flu A protein antigen. Infection due to Flu A cannot be ruled out. Flu A antigen in the sample may be below the detection limit of the test. Influenza Virus B Antigen Negative Negative for Flu B protein antigen. Infection due to Flu B cannot be ruled out. Flu B antigen in the sample may be below the detection limit of the test. Performing Lab: see note ML - [facility] PROF 14(COMP METB) Reviewed date:09/29/2024 01:14:33 PM Interpretation: Performing Lab: Notes/Report: [facility] , Sodium 142 136-145 mmol/L Potassium 4.8 3.5-5.1 mmol/L Chloride 105 98-107 mmol/L Carbon Dioxide 27.8 21.0-32.0 mmol/L Anion Gap 14.0 Glucose 177 74-106 mg/dL Blood Urea Nitrogen 37.0 7.0-18.0 mg/dL Creatinine 2.24 0.70-1.30 mg/dL Estimated GFR ( Aura 36 >=60 mL/min/1.73m 2 Estimated GFR (Non- Sandy 29 >=60 mL/min/1.73m 2 BUN Creatinine Ratio 16.5 Calcium 8.4 8.5-10.1 mg/dL Bilirubin Total 0.5 0.2-1.0 mg/dL Aspartate Amino Transferase 23 15-37 U/L Alanine Aminotransferase 22 16-63 U/L Alkaline Phosphatase 44 46-116 U/L Total Protein 7.0 6.4-8.2 g/dL Albumin Level 2.7 3.4-5.0 g/dL Globulin 4.3 Albumin Globulin Ratio 0.6 Performing Lab: see note ML - [facility] RSV Reviewed date:09/29/2024 01:14:33 PM Interpretation: Performing Lab: Notes/Report: [facility] , Respiratory Syncytial Virus Not Detected NOT DETECTE Performing Lab: see note ML - [facility] Blood Culture 1 Reviewed date:10/05/2024 08:22:09 PM Interpretation: Performing Lab: Notes/Report: [facility] , Blood Culture 1 See Below For Report Blood Culture 1 NG5D NO GROWTH AT 5 DAYS. Performing Lab: see note - [facility] Manual Differential Reviewed date:09/29/2024 01:14:33 PM Interpretation: Performing Lab: Notes/Report: [facility] , Segmented Neutrophils % Manual 65.0 43.0-75.0 Band Neutrophils % 12.0 0-5 % Lymphocytes Percent Manual 10.0 20.5-60.0 % Monocytes Percent Manual 9.0 1.7-12.0 % Eosinophils Percent Manual 0.0 0.9-7.0 % Basophils Percent Manual 0.0 0.2-2.0 % Atypical Lymphocytes % Manual 5.0 Segmented Neut Absolute Manual 2.86 1.4-6.5 10 3/uL Band Neutrophils Absolute 0.5 0.0-0.3 10 3/uL Lymphocytes Absolute Manual 0.44 1.20-3.80 10 3/uL Monocytes Absolute Manual 0.39 0.30-0.80 10 3/uL Eosinophils Absolute Manual 0.00 0.00-0.70 10 3/uL Basophils Abs Manual 0.00 0.00-0.10 1 0 3/uL Atypical Lymphocytes Abs Man 0.22 Toxic Vacuolation 1+ Performing Lab: see note ML - [facility] LB Troponin I High Sensitivity Reviewed date:09/29/2024 01:14:33 PM Interpretation: Performing Lab: Notes/Report: [facility] , Troponin I High Sensitivity 11.2 4.0-76.1 pg/mL CUT-OFF POINTS HAVE BEEN ESTABLISHED BASED ON THE FOURTH UNIVERSAL DEFINITION OF MYOCARDIAL INFARCTION. THE UPPER REFERENCE LIMIT (URL) OF TROPONIN, DEFINED THE 99TH PERCENTILE OF cTnI DISTRIBUTION IN A REFERENCE POPULATION, HAS BEEN CONFIRMED THE DECISION THRESHOLD FOR MO DIAGNOSIS. 99TH PERCENTILE = 76.2 PG/ML NOTE: HIGH-SENSITIVITY TROPONIN ASSAY IS NOT INTENDED TO BE USED IN ISOLATION BUT SHOULD BE INTERPRETED IN CONJUNCTION WITH OTHER DIAGNOSTIC AND CLINICAL INFORMATION. Performing Lab: see note ML - [facility] LB SARS-CoV-2 Ag* Reviewed date:09/29/2024 01:14:33 PM Interpretation: Performing Lab: Notes/Report: [facility] , SARS-CoV-2 Ag NEGATIVE NEGATIVE This test has not been FDA cleared or approved, but has been authorized by the FDA under an Emergency Use Authorization (EUA) for use by authorized laboratories certified under CLIA that meet the requirements to perform moderate or high complexity testing. This test has been authorized only for the detection of proteins from SARS-CoV-2, not for any other viruses or pathogens. The emergency use of this test is authorized for the duration of the declaration that circumstances exist justifying the authorization of emergency use of in vitro diagnostic tests for detection and/or diagnosis of Covid-19 under section 564(b)(1) of the Act, 21 U.S.C. 360bbb-3(b)(1), unless the declaration is terminated or authorization is revoked sooner. Performing Lab: see note ML - [facility] LB ECG 12 lead Reviewed date:09/30/2024 03:16:15 PM Interpretation: Performing Lab: Notes/Report: Source Facility: [facility]-[address] [place] [address] [place] [address] Electrocardiograph Report Signed Patient: TAYLOR MCCLELLAN MR#: [id number] : 1955 Acct:[id number] Age/Sex: 69 / M ADM Date: 09/28/24 Loc: ICU 275-[address]: Norbert Jiang M.D. Ordering Physician: Melva Jason M.D. 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 Signed By: 09/29/242051 DD/ 99 TD/TT: Newsagent: [place] [address] Electrocardiograph Report Signed Patient: PEDRO LUIS MCCLELLAN PH MR#: [id number] : 1955 Acct:[id number] Age/Sex: 69 / M ADM Date: 09/28/24 Loc: ICU 275-[address]: Dixie Jiang M.D. Ordering Physician: Melva Jason M.D. 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 Signed By: 09/29/242051 DD/ 99 TD/TT: Newsagent: CT head/brain wo con Reviewed date:09/29/2024 01:14:33 PM Interpretation: Performing Lab: Notes/Report: Source Facility: [place] [address] [place] [address] CT Scan Report Signed Patient: TAYLOR MCCLELLAN MR#: [id number] : 1955 Acct:[id number] Age/Sex: 69 / M ADM Date: 09/28/24 Loc: ER Attending Dr: Ordering Physician: Melva Jason M.D. Date of Service: 09/28/24 Procedure(s): CT head/brain wo con Accession Number(s): [id number] cc: Norbert Jiang M.D. The [place] [address] Patient Name: TAYLOR MCCLELLAN MRN: [id number] date: 1955 Sex: M Assigned Patient Location: ER Current Patient Location: ER Accession/Order Number: [id number] Exam Date: 09/28/2024 20:41 Report Date: 09/28/2024 21:08 At the request of: MELVA JASON Procedure: CT head/brain wo con EXAM: CT head/brain wo con HISTORY: trauma COMPARISON: CT brain 09/09/2024. TECHNIQUE: Axial CT scans through the head were obtained without IV contrast administration. Dose reduction techniques were achieved by using: automated exposure control and/or adjustment of mA and /or kV according to patient size and/or use of iterative reconstruction technique. FINDINGS: There is no evidence of acute intracranial hemorrhage or abnormal extra-axial fluid collection. No mass effect or midline shift is seen. There is no evidence of large acute territorial infarction. There is no hydrocephalus. There is mild generalized cerebral atrophy. There are remote lacunar infarcts in the left basal ganglia, left internal capsule, right thalamus and right centrum semiovale. To the limit of CT, the posterior fossa appears unremarkable. There are atherosclerotic calcifications of cavernous segments of bilateral internal carotid arteries. No definite acute fracture is identified. There is a stable small scalp nodule. The visualized orbits show no abnormality. The visualized paranasal sinuses show no air-fluid level. Mastoid air cells are clear. CT/CT head/brain wo con IMPRESSION: No CT evidence of acute intracranial abnormality. Stable chronic findings, as described. Electronically authenticated by: ANNABEL SRIVASTAVA Date: 09/28/2024 21:08 Dictated By: ANNABEL SRIVASTAVA M.D. Signed By: 09/28/242109 DD/ 07 TD/TT: Newsagent: [place] [address] CT Scan Report Signed Patient: PEDRO LUIS MCCLELLAN PH MR#: [id number] : 1955 Acct:[id number] Age/Sex: 69 / M ADM Date: 09/28/24 Loc: ER Attending Dr: Ordering Physician: Melva Jason M.D. Date of Service: 09/28/24 Procedure(s): CT head/brain wo con Accession Number(s): [id number] cc: Norbert Jiang M.D. The [place] [id number] Patient Name: TAYLOR MCCLELLAN MRN: [id number] date: 1955 Sex: M Assigned Patient Location: ER Current Patient Loca tion: ER Accession/Order Numb er: [id number] Exam Date: 09/28/2024 20:41 Report Date: 09/28/2024 21:08 At the request of: MELVA JASON Procedure: CT head/b rain wo con EXAM: CT head/brain wo con HISTORY: trauma COMPARISON: CT brain 09/09/2024. TECHNIQUE: Axial CT scans through the head were obtained without IV contrast administration. Dose reduction techniques were achieved by using: automated exposure control and /or adjustment of mA and /or kV according to patient size and/or use of iterat renée reconstruction technique. FINDINGS: There is no evidence of acute intracranial hemorrhage or abnormal extra-axial fluid collection. No mass effect or midline shift is seen. There is no evidence of large acute territorial infarction. There is no hydrocephalus. There is mild genera lized cerebral atrophy. There are remote lacunar infarcts in the left basal ganglia, left internal capsule, right thalamus and right centrum semiovale. To the limit of CT, the posterior fossa appears unremarkable. There are atherosclerotic calcifications of cavernous segments of bilateral internal carotid arteries. No definite acute fracture is identified. There is a stable small scalp nodule. The visualized orbit s show no abnormality. The visualized paran ever sinuses show no air-fluid level. Mastoid air cells are clear. C T/CT head/brain wo con IMPRESSION: No CT evidence of ac saúl intracranial abnormality. Stable chronic findi ngs, as described. Electronically authenticated by: ANNABEL SRIVASTAVA Date: 09/28/2024 21:08 Dictated By: ADE SRIVASTAVA M.D. Signed By: 09/28/242109 DD/ 07 TD/TT: Newsagent: MELVIN chest 1V Reviewed date:09/29/2024 01:14:33 PM Interpretation: Performing Lab: Notes/Report: Source Facility: [place] [address] [place] [address] XRay Report Signed Patient: TAYLOR MCCLELLAN MR#: [id number] : 1955 Acct:[id number] Age/Sex: 69 / M ADM Date: 09/28/24 Loc: ER Attending Dr: Ordering Physician: Melva Jason M.D. Date of Service: 09/28/24 Procedure(s): XR chest 1V Accession Number(s): [id number] cc: Norbert Jiang M.D.; Melva Jason M.D. [facility] [place] [address] Patient Name: TAYLOR MCCLELLAN MRN: [id number] date: 1955 Sex: M Assigned Patient Location: ER Current Patient Location: LAB Accession/Order Number: [id number] Exam Date: 09/28/2024 20:41 Report Date: 09/28/2024 22:23 At the request of: MELVA JASON Procedure: XR chest 1V EXAMINATION: XR chest 1V HISTORY: sob COMPARISON: XR chest 05/21/2024 FINDINGS: LUNGS: Unexpanded lungs with moderate opacities within mid and lower lung regions. VASCULATURE: No increased pulmonary vasculature. PLEURA: No pneumothorax, effusion, or pleural thickening. CARDIAC: No cardiomegaly or cardiac silhouette abnormality. MEDIASTINUM: Prior sternotomy. No abnormal widening. BONES: No fracture or visible bone lesion. OTHER: Negative. XR/XR chest 1V IMPRESSION: 1. Low lung volume examination with moderate bibasilar infiltrates; pulmonary edema versus infectious etiology. Electronically authenticated by: LIAM ADORNO Date: 09/28/2024 22:23 Dictated By: Liam Adorno M.D. Signed By: 09/28/242224 DD/ 22 TD/TT: Newsagent: [place] [address] XRay Report Signed Patient: PEDRO LUIS MCCLELLAN PH MR#: [id number] : 1955 Acct:[id number] Age/Sex: 69 / M ADM Date: 09/28/24 Loc: ER Attending Dr: Ordering Physician: Melva Jason M.D. Date of Service: 09/28/24 Procedure(s): XR chest 1V Accession Number(s): [id number] cc: Norbert Jiang M.D. ; Melva Jason M.D. [place] [address] Patient Name: TAYLOR MCCLELLAN MRN: [id number] date: 1955 Sex: M Assigned Patient Location: ER Current Patient Loca tion: LAB Accession/Order Numb er: [id number] Exam Date: 09/28/2024 20:41 Report Date: 09/28/2024 22:23 At the request of: MELVA JASON Procedure: XR chest 1V EXAMINATION: XR chest 1V HISTORY: sob COMPARISON: XR chest 05/21/2024 FINDINGS: LUNGS: Unexpanded barry ngs with moderate opacities within mid and lower lung regions. VASCULATURE: No incr eased pulmonary vasculature. PLEURA: No pneumotho rax, effusion, or pleural thickening. CARDIAC: No cardiome lizet or cardiac silhouette abnormality. MEDIASTINUM: Prior sternotomy. No abnormal widening. BONES: No fracture o r visible bone lesion. OTHER: Negative. X R/XR chest 1V IMPRESSION: 1. Low lung volume examination with moderate bibasilar infiltrates; pulmonary edema versus infecti ous etiology. Electronically authenticated by: LIAM ADORNO Date: 09/28/2024 22:23 Dictated By: Liam Adorno M.D. Signed By: 09/28/242224 DD/ 22 TD/TT: Newsagent: CT cervical spine wo con Reviewed date:09/29/2024 01:14:33 PM Interpretation: Performing Lab: Notes/Report: Source Facility: [address] [place] [address] CT Scan Report Signed Patient: TAYLOR MCCLELLAN MR#: [id number] : 1955 Acct:[id number] Age/Sex: 69 / M ADM Date: 09/28/24 Loc: ER Attending Dr: Ordering Physician: Melva Jason M.D. Date of Service: 09/28/24 Procedure(s): CT cervical spine wo con Accession Number(s): [id number] cc: Norbert Jiang M.D. [address] [address] Patient Name: TAYLOR MCCLELLAN MRN: [id number] date: 1955 Sex: M Assigned Patient Location: ER Current Patient Location: ER Accession/Order Number: [id number] Exam Date: 09/28/2024 20:41 Report Date: 09/28/2024 22:26 At the request of: MELVA JASON Procedure: CT cervical spine wo con EXAM: CT cervical spine wo con HISTORY: unwitnessed fall COMPARISON: None. TECHNIQUE: Axial images of the cervical spine were obtained without contrast enhancement. Sagittal and coronal reformations were provided. Dose reduction techniques were achieved by using automated exposure control and/or adjustment of mA and/or kV according to patient size and/or use of iterative reconstruction technique COMMENT: The lack of intradural contrast and streak artifact from bone about the vertebral column limit evaluation for disc protrusion, bulge and the spinal canal in general. FINDINGS: ALIGNMENT/BONY STRUCTURES: No CT evidence of an acute fracture, subluxation or loss of vertebral body height. Loss of disc space is seen at C3-C4 and C4-C5. There are multilevel endplate osteophytes. No malalignment at the craniocervical junction. CORD: The cord is poorly seen and not well evaluated. OTHER SPINAL FINDINGS: None. DISC SPACES: While assessment is again suboptimal on this noncontrast CT, there appear to be areas of canal narrowing due to disc bulging and associated endplate osteophyte. Uncovertebral spurring and areas of foraminal stenosis are also noted. NONSPINAL FINDINGS: A carotid stent is seen on the right. CT/CT cervical spine wo con IMPRESSION: Degenerative change of the cervical vertebral column without CT evidence of an acute fracture. Electronically authenticated by: DWAINE GOODRICH Date: 09/28/2024 22:26 Dictated By: Dwaine Goodrich M.D. Signed By: 09/28/242227 DD/ 25 TD/TT: Newsagent: The [address] [address] [address] Scan Report Signed Patient: PEDRO LUIS MCCLELLAN PH MR#: [id number] : 1955 Acct:[id number] Age/Sex: 69 / M ADM Date: 09/28/24 Loc: ER Attending Dr: Ordering Physician: Melva Jason M.D. Date of Service: 09/28/24 Procedure(s): CT cer vical spine wo con Accession Number(s): [id number] cc: Norbert Jiang M.D. [address] [address] Patient Name: TAYLOR MCCLELLAN MRN: [id number] date: 1955 Sex: M Assigned Patient Location: ER Current Patient Loca tion: ER Accession/Order Numb er: [id number] Exam Date: 09/28/2024 20:41 Report Date: 09/28/2024 22:26 At the request of: MELVA JASON Procedure: CT cervic al spine wo con EXAM: CT cervical sp ine wo con HISTORY: unwitnessed fall COMPARISON: None. TECHNIQUE: Axial erik ges of the cervical spine were obtained without contrast enhancement. Sagitta l and coronal reformations were provided. Dose reduction techn iques were achieved by using automated exposure control and/or adjustment of mA and/or kV according to patient size and/or use of iterative reconstruc tion technique COMMENT: The lack of intradural contrast and streak artifact from bone about the vertebral column limit evaluation for disc protrusion, bulge and the spinal canal in general. FINDINGS: ALIGNMENT/BONY STRUCTURES: No CT evidence of an acute fracture, subluxation or loss of vertebral avelina dy height. Loss of disc space is seen at C3-C4 and C4-C5. There are multilevel endplate osteophytes. No malalignment at the craniocervical junction. CORD: The cord is po victor hugo seen and not well evaluated. OTHER SPINAL FINDING S: None. DISC SPACES: While assessment is again suboptimal on this noncontrast CT, there appear to be areas o f canal narrowing due to disc bulging and associated endplate osteophyte. Uncovertebral spurring and areas of foraminal stenosis are also noted. NONSPINAL FINDINGS: A carotid stent is seen on the right. C T/CT cervical spine wo con IMPRESSION: Degenerative change of the cervical vertebral column without CT evidence of an acute fracture. Electronically authenticated by: DWAINE GOODRICH Date: 09/28/2024 22:26 Dictated By: Dwaine Goodrich M.D. Signed By: 09/28/242227 DD/ 25 TD/TT: Newsagent: BNP Reviewed date:09/29/2024 01:14:33 PM Interpretation: Performing Lab: Notes/Report: Comment from am blood [facility] , NT Pro B Type Natriuretic Pept 1719.0 <=900.0 pg/mL RESULTS CALLED TO MEHREEN MICHELLE RN IN ICU BY Eliana Osorio at 0803 Performing Lab: see note ML - [facility] LB CBC AUTO DIFF Reviewed date:09/29/2024 01:14:33 PM Interpretation: Performing Lab: Notes/Report: [facility] , White Blood Count 4.2 4.0-11.0 10 3/uL Red Blood Count 3.78 4.70-6.10 10 6/uL Hemoglobin 11.4 14.0-18.0 g/dL Hematocrit 34.4 42.0-54.0 % Mean Corpuscular Volume 91.0 80.0-94.0 fL Mean Corpuscular Hemoglobin 30.2 25.9-34.0 pg Mean Corpuscular HGB Conc 33.1 29.9-35.2 g/dL Red Cell Distribution Width 13.5 11.0-15.0 % Platelet Count 171 150-450 10 3/uL Mean Platelet Volume 12.3 9.5-13.5 fL Neutrophils Percent Auto 64.8 43.0-75.0 % Lymphocytes Percent Auto 17.0 20.5-60.0 % Monocytes Percent Auto 17.0 1.7-12.0 % Eosinophils Percent Auto 0.0 0.9-7.0 % Basophils Percent Auto 0.7 0.2-2.0 % Immature Granulocytes Pct Auto 0.5 0.0-0.5 % Neutrophils Absolute Auto 2.7 1.4-6.5 10 3/uL Lymphocytes Absolute Auto 0.7 1.2-3.8 10 3/uL Monocytes Absolute Auto 0.7 0.3-0.8 10 3/uL Eosinophils Absolute Auto 0.0 0.0-0.7 10 3/uL Basophils Absolute Auto 0.0 0.0-0.1 10 3/uL Immature Granulocytes Abs Auto 0.02 0.00-0.03 10 3/uL Performing Lab: see note ML - [facility] LB LACTATE or LACTIC ACID Reviewed date:09/29/2024 01:14:33 PM Interpretation: Performing Lab: Notes/Report: [facility] , Lactate/Lactic Acid 2.0 0.4-2.0 mmol/L Performing Lab: see note ML - [facility] LB MAGNESIUM Reviewed date:09/29/2024 01:14:33 PM Interpretation: Performing Lab: Notes/Report: [facility] , Magnesium 1.5 1.8-2.4 mg/dL Performing Lab: see note [facility] LB PROF 14(COMP METB) Reviewed date:09/29/2024 01:14:33 PM Interpretation: Performing Lab: Notes/Report: [facility] , Sodium 144 136-145 mmol/L Potassium 3.8 3.5-5.1 mmol/L Chloride 108 98-107 mmol/L Carbon Dioxide 23.9 21.0-32.0 mmol/L Anion Gap 15.9 Glucose 135 74-106 mg/dL Blood Urea Nitrogen 41.0 7.0-18.0 mg/dL Creatinine 2.06 0.70-1.30 mg/dL Estimated GFR ( Aura 39 >=60 mL/min/1.73m 2 Estimated GFR (Non- Sandy 32 >=60 mL/min/1.73m 2 BUN Creatinine Ratio 19.9 Calcium 8.1 8.5-10.1 mg/dL Bilirubin Total 0.6 0.2-1.0 mg/dL Aspartate Amino Transferase 32 15-37 U/L Alanine Aminotransferase 16 16-63 U/L Alkaline Phosphatase 36 46-116 U/L Total Protein 6.6 6.4-8.2 g/dL Albumin Level 2.4 3.4-5.0 g/dL Globulin 4.2 Albumin Globulin Ratio 0.6 Performing Lab: see note [facility] UA RANDOM W or MICROSCOPIC Reviewed date:09/29/2024 01:14:33 PM Interpretation: Performing Lab: Notes/Report: [facility] , Color Urine DK. YELLOW YELLOW Clarity Urine CLEAR CLEAR Specific [place] Urine 1.025 1.005-1.025 pH Urine 5.5 5.0-9.0 Protein Urine TRACE NEG/TRACE mg/dL Glucose Urine UA NEGATIVE NEGATIVE mg/dL Bilirubin Urine SMALL NEGATIVE Ketones Urine 15 NEGATIVE mg/dL Blood Urine NEGATIVE NEGATIVE Nitrite Urine NEGATIVE NEGATIVE Urobilinogen Urine 1.0 0.2-1.0 EU/dL Leukocyte Esterase Urine NEGATIVE NEGATIVE WBC Urine NONE SEEN NONE SEEN #/HPF RBC Urine NONE SEEN 0-2 #/HPF Bacteria Urine NONE SEEN NONE SEEN #/HPF Mucus Urine TRACE NONE SEEN Squamous Epithelial Cell Urine FEW NONE/RARE #/LPF Performing Lab: see note - [facility] LB Blood Culture 2 Reviewed date:10/05/2024 08:22:09 PM Interpretation: Performing Lab: Notes/Report: [facility] , Blood Culture 2 See Below For Report Blood Culture 2 NG5D NO GROWTH AT 5 DAYS. Performing Lab: see note [facility] LB Troponin I High Sensitivity Reviewed date:09/29/2024 01:14:33 PM Interpretation: Performing Lab: Notes/Report: Comment from am blood? [facility] , Troponin I High Sensitivity 19.7 4.0-76.1 pg/mL CUT-OFF POINTS HAVE BEEN ESTABLISHED BASED ON THE FOURTH UNIVERSAL DEFINITION OF MYOCARDIAL INFARCTION. THE UPPER REFERENCE LIMIT (URL) OF TROPONIN, DEFINED THE 99TH PERCENTILE OF cTnI DISTRIBUTION IN A REFERENCE POPULATION, HAS BEEN CONFIRMED THE DECISION THRESHOLD FOR MO DIAGNOSIS. 99TH PERCENTILE = 76.2 PG/ML NOTE: HIGH-SENSITIVITY TROPONIN ASSAY IS NOT INTENDED TO BE USED IN ISOLATION BUT SHOULD BE INTERPRETED IN CONJUNCTION WITH OTHER DIAGNOSTIC AND CLINICAL INFORMATION. Performing Lab: see note - [facility] LB Venous Blood Gas Reviewed date:09/29/2024 01:14:33 PM Interpretation: Performing Lab: Notes/Report: [facility] , pH VBG 7.449 7.330-7.430 PCO2 VBG 32.6 40.0-52.0 mmHg Performing Lab: see note ML - [facility] LB White Blood Cells Reviewed date:10/04/2024 12:22:37 PM Interpretation: Performing Lab: Notes/Report: [facility] , White Blood Cells See Below For Report White Blood Cells White Blood Cells Many White Blood Cells Performing Lab: see note LC - [facility] LB Epithelial Cells Reviewed date:10/04/2024 12:22:37 PM Interpretation: Performing Lab: Notes/Report: [facility] , Epithelial Cells See Below For Report Epithelial Cells Moderate Performing Lab: see note LC - [facility] LB Result 1 Reviewed date:10/04/2024 12:22:37 PM Interpretation: Performing Lab: Notes/Report: [facility] , Result 1 See Below For Report Result 1 Many gram positive cocci. Performing Lab: see note LC - [facility] LB Result 2 Reviewed date:10/04/2024 12:22:37 PM Interpretation: Performing Lab: Notes/Report: [facility] , Result 2 See Below For Report Result 2 Moderate gram negative rods. Performing Lab: see note LC - [facility] LB Result 3 Reviewed date:10/04/2024 12:22:37 PM Interpretation: Performing Lab: Notes/Report: [facility] , Result 3 See Below For Report Result 3 Few gram positive rods. Performing Lab: see note LC - [facility] LB Result 4 Reviewed date:10/04/2024 12:22:37 PM Interpretation: Performing Lab: Notes/Report: [facility] , Result 4 See Below For Report Result 4 Small amount of yeast seen. Performing Lab: see note LC - [facility] LB Gram Stain Evaluation Reviewed date:10/04/2024 12:22:37 PM Interpretation: Performing Lab: Notes/Report: [facility] , Gram Stain Evaluation See Below For Report Gram Stain Evaluation This specimen is of good quality and is acceptable for routine Gram Stain Evaluation bacterial culture. Gram Stain Evaluation This specimen is of good quality and is acceptable for routine Performing Lab: see note LC - [facility] LB CT chest wo con Reviewed date:09/29/2024 01:14:33 PM Interpretation: Performing Lab: Notes/Report: Source Facility: [place] [address] [place] [address] CT Scan Report Signed Patient: TAYLOR MCCLELLAN MR#: [id number] : 1955 Acct:[id number] Age/Sex: 69 / M ADM Date: 09/28/24 Loc: ER Attending Dr: Ordering Physician: Melva Jason M.D. Date of Service: 09/28/24 Procedure(s): CT chest wo con Accession Number(s): [id number] cc: Norbert Jiang M.D. The [place] [address] Patient Name: TAYLOR MCCLELLAN MRN: [id number] date: 1955 Sex: M Assigned Patient Location: ER Current Patient Location: ER Accession/Order Number: [id number] Exam Date: 09/28/2024 23:20 Report Date: 09/29/2024 00:09 At the request of: MELVA JASON Procedure: CT chest wo con EXAM: CT CHEST WITHOUT CONTRAST HISTORY: There is a breath COMPARISON: 04/14/2024 CT chest without contrast TECHNIQUE: Multiple axial images are taken from the level the thyroid down to the upper abdomen without the use of IV contrast. Images were then reconstructed in the sagittal and coronal planes. This exam was performed according to our departmental dose-optimization program which includes use of Automated Exposure Control, adjustment of the mA and/or kV according to patient size and/or use of iterative reconstruction technique. FINDINGS: Evaluation limited due to lack of IV contrast. Lines and tubes: None. Lungs: Lungs are hyperexpanded with airspace opacities and air bronchograms demonstrated throughout bilateral lung marshall. Trachea/Main Bronchi: Well aerated. No intraluminal mass. Esophagus: Patulous. Pleura: No pneumothorax. No pneumomediastinum.. No effusion. Heart: Enlarged with coronary artery calcifications.. Aorta: Ascending aorta is aneurysmal at 40 mm. Pulmonary Artery: Normal in size. Further evaluation is limited due to lack of IV contrast. Lymph Nodes: Enlarged infracarinal lymph node demonstrated. Measures up to 16 mm in the short axis. Chest Wall: Normal. Thyroid: Normal. Osseous: Within normal limits for patient's age. Subdiaphragmatic: Subdiaphragmatic abdominal organs included in the [id number]-kx-gajf demonstrate an enlarged liver with a small hiatal hernia. Splenule is demonstrated. Stomach is decompressed. CT/CT chest wo con IMPRESSION: 1. Bilateral pneumonia. Short-term follow-up after] therapy is recommended to exclude underlying nodule. 2. Hepatomegaly. 3. Mediastinal lymphadenopathy most likely due to pneumonia. 4. Small hiatal hernia. 5. Cardiomegaly with coronary artery disease [facility] Citation: Information used in this report was referenced from the following. Guidelines for Management of Incidental Pulmonary Nodules Detected on CT Images: From the Fleischner Society 2017 Radiology. 2017 [place];284(1):228-243. doi: 10.1148/radiol.3766320519. Epub 2016Nov 01. Electronically authenticated by: PILY BANEGAS Date: 09/29/2024 00:09 Dictated By: Pily Banegas M.D. Signed By: 09/29/24 0012 DD/ 0009 TD/TT: Newsagent: [place] [address] CT Scan Report Signed Patient: PEDRO LUIS MCCLELLAN PH MR#: [id number] : 1955 Acct:[id number] Age/Sex: 69 / M ADM Date: 09/28/24 Loc: ER Attending Dr: Ordering Physician: Melva Jason M.D. Date of Service: 09/28/24 Procedure(s): CT s[address] [facility] wo con Accession Number(s): [id number] cc: Norbert Jiang M.D. The [address] [address] Patient Name: TAYLOR MCCLELLAN MRN: [id number] date: 1955 Sex: M Assigned Patient Location: ER Current Patient Loca tion: ER Accession/Order Numb er: [id number] Exam Date: 09/28/2024 23:20 Report Date: 09/29/2024 00:09 At the request of: MELVA JASON Procedure: CT chest wo con EXAM: CT CHEST WITHO UT CONTRAST HISTORY: There is a breath COMPARISON: 04/14/2024 CT chest wi thout contrast TECHNIQUE: Multiple axial image s are taken from the level the thyroid down to the upper abdomen without the use of IV contrast. Images were then reconstructed in the sagittal and coronal planes. This exam was perfor med according to our departmental dose-optimization program which includes use o f Automated Exposure Control, adjustment of the mA and/or kV according to trav ent size and/or use of iterative reconstruction technique. FINDINGS: Evaluation limited d ue to lack of IV contrast. Lines and tubes: None. Lungs: Lungs are hyperexpan ded with airspace opacities and air bronchograms demonstrated through out bilateral lung marshall. Trachea/Main Bronchi: Well aerated. No intraluminal mass. Esophagus: Patulous. Pleura: No pneumothorax. No pneumomediastinum.. No effusion. Heart: Enlarged with andrade ry artery calcifications.. Aorta: Ascending aorta is aneurysmal at 40 mm. Pulmonary Artery: Normal in size. Furt her evaluation is limited due to lack of IV contrast. Lymph Nodes: Enlarged infracarina l lymph node demonstrated. Measures up to 16 mm in the short axis. Chest Wall: Normal. Thyroid: Normal. Osseous: Within normal limits for patient's age. Subdiaphragmatic: Subdiaphragmatic abdominal organs included in the urwhl-dg-tlap demonstrate an enlarged liver with a small hiatal hernia. Splenule is demonstrated. Stomach is decompressed. C T/CT chest wo con IMPRESSION: 1. Bilateral pneumon ia. Short-term follow-up after] therapy is recommended to exclude underlying nodule. 2. Hepatomegaly. 3. Mediastinal lymphadenopathy most likely due to pneumonia. 4. Small hiatal hernia. 5. Cardiomegaly with coronary artery disease Fleischner Citation: Information used in this report was referenced from the following. Guidelines for Manag ement of Incidental Pulmonary Nodules Detected on CT Images: From the Fleischner Society 2017 Radiology. 2017 Mar;284(1):228-243. doi: 10.1148/radiol.9522168986 . Epub 2016Nov 01. Electronically authenticated by: PILY BANEGAS Date: 09/29/2024 00:09 Dictated By: Pily Banegas M.D. Signed By: 09/29/24 0012 DD/ 0009 TD/TT: Newsagent: LACTATE or LACTIC ACID Reviewed date:09/29/2024 01:14:33 PM Interpretation: Performing Lab: Notes/Report: [facility] , Lactate/Lactic Acid 2.1 0.4-2.0 mmol/L RESULT S CALLED TO STEPHEN REAGAN RN at 0957 Performing Lab: see note ML - [facility] LB LACTATE or LACTIC ACID Reviewed date:09/29/2024 01:14:33 PM Interpretation: Performing Lab: Notes/Report: [facility] , Lactate/Lactic Acid 1.8 0.4-2.0 mmol/L Performing Lab: see note - [facility] LB Blood Culture 2 Reviewed date:10/05/2024 08:22:09 PM Interpretation: Performing Lab: Notes/Report: [facility] , Blood Culture 2 See Below For Report Blood Culture 2 NG5D NO GROWTH AT 5 DAYS. Performing Lab: see note ML - [facility] LB XR chest 1V Reviewed date:09/30/2024 03:16:15 PM Interpretation: Performing Lab: Notes/Report: Source Facility: [place] [address] [place] [address] XRay Report Signed Patient: TAYLOR MCCLELLAN MR#: [id number] : 1955 Acct:[id number] Age/Sex: 69 / M ADM Date: 09/28/24 Loc: ICU 275-[address]: Norbert Jiang M.D. Ordering Physician: Norbert Jiang M.D. Date of Service: 09/30/24 Procedure(s): XR chest 1V Accession Number(s): [id number] cc: Norbert Jiang M.D. [place] [id number] Patient Name: TAYLOR MCCLELLAN MRN: [id number] date: 1955 Sex: M Assigned Patient Location: ICU Current Patient Location: ICU Accession/Order Number: [id number] Exam Date: 09/30/2024 07:28 Report Date: 09/30/2024 07:45 At the request of: NORBERT JIANG Procedure: XR chest 1V EXAMINATION: XR chest 1V HISTORY: hypoxia COMPARISON: XR chest 09/28/2024 FINDINGS: LUNGS: Moderate bilateral infiltrates predominantly involving the medial mid and lower lung regions. VASCULATURE: No increased pulmonary vasculature. PLEURA: No pneumothorax, effusion, or pleural thickening. CARDIAC: Stable cardiomegaly. Prior sternotomy. MEDIASTINUM: No visible mass or adenopathy. BONES: No fracture or visible bone lesion. OTHER: Negative. XR/XR chest 1V IMPRESSION: 1. Moderate bilateral pulmonary infiltrates; slightly improved. Electronically authenticated by: LIAM ADORNO Date: 09/30/2024 07:45 Dictated By: Liam Adorno M.D. Signed By: 09/30/2447 DD/ TD/TT: Newsagent: [place] [address] XRay Report Signed Patient: PEDRO LUIS MCCLELLAN PH MR#: [id number] : 1955 Acct:[id number] Age/Sex: 69 / M ADM Date: 09/28/24 Loc: ICU 275-[address]: Dixie Jiang M.D. Ordering Physician: Norbert Jiang M.D. Date of Service: 09/30/24 Procedure(s): XR chest 1V Accession Number(s): [id number] cc: Norbert Jiang M.D. [place] [id number] Patient Name: TAYLOR MCCLELLAN MRN: [id number] date: 1955 Sex: M Assigned Patient Location: ICU Current Patient Loca tion: ICU Accession/Order Numb er: [id number] Exam Date: 09/30/2024 07:28 Report Date: 09/30/2024 07:45 At the request of: NORBERT JIANG Procedure: XR chest 1V EXAMINATION: XR chest 1V HISTORY: hypoxia COMPARISON: XR chest 09/28/2024 FINDINGS: LUNGS: Moderate bila teral infiltrates predominantly involving the medial mid and lower lung regions. VASCULATURE: No incr eased pulmonary vasculature. PLEURA: No pneumotho rax, effusion, or pleural thickening. CARDIAC: Stable cardiomegaly. Prior sternotomy. MEDIASTINUM: No visi ble mass or adenopathy. BONES: No fracture o r visible bone lesion. OTHER: Negative. X R/XR chest 1V IMPRESSION: 1. Moderate bilatera l pulmonary infiltrates; slightly improved. Electronically authenticated by: LIAM ADORNO Date: 09/30/2024 07:45 Dictated By: Liam Adorno M.D. Signed By: 09/30/2447 DD/ TD/TT: Newsagent: BNP Reviewed date:10/01/2024 05:38:29 PM Interpretation: Performing Lab: Notes/Report: [facility] , NT Pro B Type Natriuretic Pept 2082.0 <=900.0 pg/mL RESULTS CALLED TO Dinh Mclaughlin RN @BY Malcolm Almanza MLT at 0604 Performing Lab: see note ML - [facility] LB CBC AUTO DIFF Reviewed date:10/01/2024 05:38:29 PM Interpretation: Performing Lab: Notes/Report: [facility] , White Blood Count 8.1 4.0-11.0 10 3/uL Red Blood Count 3.76 4.70-6.10 10 6/uL Hemoglobin 11.5 14.0-18.0 g/dL Hematocrit 34.4 42.0-54.0 % Mean Corpuscular Volume 91.5 80.0-94.0 fL Mean Corpuscular Hemoglobin 30.6 25.9-34.0 pg Mean Corpuscular HGB Conc 33.4 29.9-35.2 g/dL Red Cell Distribution Width 13.5 11.0-15.0 % Platelet Count 204 150-450 10 3/uL Mean Platelet Volume 12.4 9.5-13.5 fL Performing Lab: see note ML - [facility] LB PROF 14(COMP METB) Reviewed date:10/01/2024 05:38:29 PM Interpretation: Performing Lab: Notes/Report: [facility] , Sodium 142 136-145 mmol/L Potassium 3.4 3.5-5.1 mmol/L Chloride 106 98-107 mmol/L Carbon Dioxide 26.1 21.0-32.0 mmol/L Anion Gap 13.3 Glucose 132 74-106 mg/dL Blood Urea Nitrogen 38.0 7.0-18.0 mg/dL Creatinine 1.26 0.70-1.30 mg/dL Estimated GFR ( Aura >60 >=60 mL/min/1.73m 2 Estimated GFR (Non- Sandy 57 >=60 mL/min/1.73m 2 BUN Creatinine Ratio 30.2 Calcium 8.2 8.5-10.1 mg/dL Bilirubin Total 0.2 0.2-1.0 mg/dL Aspartate Amino Transferase 72 15-37 U/L Alanine Aminotransferase 56 16-63 U/L Alkaline Phosphatase 47 46-116 U/L Total Protein 6.6 6.4-8.2 g/dL Albumin Level 2.2 3.4-5.0 g/dL Globulin 4.4 Albumin Globulin Ratio 0.5 Performing Lab: see note ML - [facility] LB Manual Differential Reviewed date:10/01/2024 05:38:29 PM Interpretation: Performing Lab: Notes/Report: [facility] , Segmented Neutrophils % Manual 60.0 43.0-75.0 Band Neutrophils % 2.0 0-5 % Lymphocytes Percent Manual 30.0 20.5-60.0 % Monocytes Percent Manual 7.0 1.7-12.0 % Eosinophils Percent Manual 1.0 0.9-7.0 % Basophils Percent Manual 0.0 0.2-2.0 % Segmented Neut Absolute Manual 4.86 1.4-6.5 10 3/uL Band Neutrophils Absolute 0.2 0.0-0.3 10 3/uL Lymphocytes Absolute Manual 2.43 1.20-3.80 10 3/uL Monocytes Absolute Manual 0.56 0.30-0.80 10 3/uL Eosinophils Absolute Manual 0.08 0.00-0.70 10 3/uL Basophils Abs Manual 0.00 0.00-0.10 1 0 3/uL Performing Lab: see note - [facility] LB BNP Reviewed date:10/04/2024 12:22:37 PM Interpretation: Performing Lab: Notes/Report: [facility] , NT Pro B Type Natriuretic Pept 1603.0 <=900.0 pg/mL RESULTS CALLED TO Performing Lab: see note ML - [facility] LB PROF 14(COMP METB) Reviewed date:10/04/2024 12:22:37 PM Interpretation: Performing Lab: Notes/Report: [facility] , Sodium 140 136-145 mmol/L Potassium 3.8 3.5-5.1 mmol/L Chloride 107 98-107 mmol/L Carbon Dioxide 29.7 21.0-32.0 mmol/L Anion Gap 7.1 Glucose 122 74-106 mg/dL Blood Urea Nitrogen 21.0 7.0-18.0 mg/dL Creatinine 1.08 0.70-1.30 mg/dL Estimated GFR ( Aura >60 >=60 mL/min/1.73m 2 Estimated GFR (Non- Sandy >60 >=60 mL/min/1.73m 2 BUN Creatinine Ratio 19.4 Calcium 8.1 8.5-10.1 mg/dL Bilirubin Total 0.2 0.2-1.0 mg/dL Aspartate Amino Transferase 40 15-37 U/L Alanine Aminotransferase 44 16-63 U/L Alkaline Phosphatase 40 46-116 U/L Total Protein 6.3 6.4-8.2 g/dL Albumin Level 2.0 3.4-5.0 g/dL Globulin 4.3 Albumin Globulin Ratio 0.5 Performing Lab: see note ML - [facility] LB GLYCOHEMOGLOBIN A1C Reviewed date:01/06/2025 04:55:26 PM Interpretation: Performing Lab: Notes/Report: [facility] , Glycohemoglobin A1C 6.5 4.5-6.2 % ADA RECOMMENDED LIMIT 4.0 - 6.0 ADA THERAPEUTIC TARGET < 7.0 ACTION SUGGESTED > 7.0 Estimated Average Glucose 140 Performing Lab: see note ML - [facility] LB PROF CHEM 8 (BAS METB) Reviewed date:01/06/2025 04:55:26 PM Interpretation: Performing Lab: Notes/Report: [facility] , Sodium 143 136-145 mmol/L Potassium 4.3 3.5-5.1 mmol/L Chloride 106 98-107 mmol/L Carbon Dioxide 25.9 21.0-32.0 mmol/L Anion Gap 15.4 Glucose 121 74-106 mg/dL Blood Urea Nitrogen 25.0 7.0-18.0 mg/dL Creatinine 1.38 0.70-1.30 mg/dL Estimated GFR ( Aura >60 >=60 mL/min/1.73m 2 Estimated GFR (Non- Sandy 51 >=60 mL/min/1.73m 2 BUN Creatinine Ratio 18.1 Calcium 9.1 8.5-10.1 mg/dL Performing Lab: see note - [facility] LB MRSA Screening Culture Reviewed date:01/10/2025 12:29:28 PM Interpretation: Performing Lab: Notes/Report: [facility] , MRSA Screening Culture See Below For Report MRSA Screening Culture MRSA Screening Culture *ABNORMAL* MRSA Screening Culture MRSA Screening Culture Positive MRSA Screening Culture MRSA Screening Culture Performed at: [facility] MRSA Screening Culture MRSA Screening Culture [address] [place] [address] [id number] MRSA Screening Culture MRSA Screening Culture Elementary Educator: Joshua Cabral PhD, Phone: [phone] MRSA Screening Culture Performing Lab: see note LC - [facility] LB SEE REPORT - Tool Maker Id information not found for OBX-specific technology risk intern legend XR chest 2V Reviewed date:01/06/2025 04:55:26 PM Interpretation: Performing Lab: Notes/Report: Source Facility: [place] [address] XRay Report Signed Patient: TAYLOR MCCLELLAN MR#: [id number] : 1955 Acct:[id number] Age/Sex: 69 / M ADM Date: 01/06/25 Loc: LAB Attending Dr: Josefa VELAZQUEZ Ordering Physician: Josefa Plaza Date of Service: 01/06/25 Procedure(s): XR chest 2V Accession Number(s): [id number] cc: Norbert Jiang M.D.; Josefa Plaza [place] [address] Patient Name: TAYLOR MCCLELLAN MRN: [id number] date: 1955 Sex: M Assigned Patient Location: LAB Current Patient Location: LAB Accession/Order Number: [id number] Exam Date: 01/06/2025 11:09 Report Date: 01/06/2025 11:09 At the request of: JOSEFA VELAZQUEZ Procedure: XR chest 2V Chest 2 views CLINICAL HISTORY: PRE OP EVAL Z01.812, HTN I10 COMPARISON: None FINDINGS: Sternotomy wires are noted. Cardiomegaly with vascular congestion. No consolidation pneumothorax pleural effusion or free air. XR/XR chest 2V IMPRESSION: CHF FINDINGS. NO CONSOLIDATION TO SUGGEST PNEUMONIA. Impression dictated by: Kayode Dempsey Jr., D.O. 01/06/2025 11:09 AM Dictation Location: [place] [address] Electronically authenticated by: [id number] Y Date: 01/06/2025 11:09 Dictated By: Kayode Dempsey M.D. Signed By: 01/06/25 1112 DD/ 1109 TD/TT: Newsagent: [place] [address] XRay Report Signed Patient: PEDRO LUIS MCCLELLAN PH MR#: [id number] : 1955 Acct:[id number] Age/Sex: 69 / M ADM Date: 01/06/25 Loc: LAB Attending Dr: Selena Booth Ordering Physician: Josefa Plaza Date of Service: 01/06/25 Procedure(s): XR chest 2V Accession Number(s): [id number] cc: Norbert Jiang M.D. ; Josefa Plaza [place] [id number] Patient Name: TAYLOR MCCLELLAN MRN: [id number] date: 1955 Sex: M Assigned Patient Location: LAB Current Patient Loca tion: LAB Accession/Order Numb er: [id number] Exam Date: 01/06/2025 11:09 Report Date: 01/06/2025 11:09 At the request of: JOSEFA VELAZQUEZ Procedure: XR chest 2V Chest 2 views CLINICAL HISTORY: AK E OP EVAL Z01.812, HTN I10 COMPARISON: None FINDINGS: Sternotomy wires are noted. Cardiomegaly with vascular congestion. No consolidation pneumothorax pleural effusion or free air. X R/XR chest 2V IMPRESSION: CHF FINDINGS. NO CONSOLIDATION TO SUGGEST PNEUMONIA. Impression dictated by: Kayode Dempsey Jr., D.O. 01/06/2025 11:09 AM Dictation Location: [place] [address] Electronically authenticated by: [id number] Y Date: 01/06/2025 11:09 Dictated By: Kayode Dempsey M.D. Signed By: 01/06/25 1112 DD/ 1109 TD/TT: Newsagent: Manual Differential Reviewed date:10/04/2024 12:22:37 PM Interpretation: Performing Lab: Notes/Report: [facility] , Segmented Neutrophils % Manual 57.0 43.0-75.0 Band Neutrophils % 1.0 0-5 % Lymphocytes Percent Manual 30.0 20.5-60.0 % Monocytes Percent Manual 11.0 1.7-12.0 % Eosinophils Percent Manual 1.0 0.9-7.0 % Basophils Percent Manual 0.0 0.2-2.0 % Segmented Neut Absolute Manual 3.53 1.4-6.5 10 3/uL Band Neutrophils Absolute 0.1 0.0-0.3 10 3/uL Lymphocytes Absolute Manual 1.86 1.20-3.80 10 3/uL Monocytes Absolute Manual 0.68 0.30-0.80 10 3/uL Eosinophils Absolute Manual 0.06 0.00-0.70 10 3/uL Basophils Abs Manual 0.00 0.00-0.10 1 0 3/uL Performing Lab: see note ML - [facility] LB CBC AUTO DIFF Reviewed date:10/04/2024 12:22:37 PM Interpretation: Performing Lab: Notes/Report: [facility] , White Blood Count 6.2 4.0-11.0 10 3/uL Red Blood Count 3.73 4.70-6.10 10 6/uL Hemoglobin 11.4 14.0-18.0 g/dL Hematocrit 34.0 42.0-54.0 % Mean Corpuscular Volume 91.2 80.0-94.0 fL Mean Corpuscular Hemoglobin 30.6 25.9-34.0 pg Mean Corpuscular HGB Conc 33.5 29.9-35.2 g/dL Red Cell Distribution Width 13.4 11.0-15.0 % Platelet Count 188 150-450 10 3/uL Mean Platelet Volume 11.8 9.5-13.5 fL Performing Lab: see note ML - [facility] LB XR acute abdomen series Reviewed date:10/01/2024 05:38:29 PM Interpretation: Performing Lab: Notes/Report: Source Facility: [place] [address] XRay Report Signed Patient: TAYLOR MCCLELLAN MR#: [id number] : 1955 Acct:[id number] Age/Sex: 69 / M ADM Date: 09/28/24 Loc: [place] 215-[address]: Norbert Jiang M.D. Ordering Physician: Norbert Jiang M.D. Date of Service: 10/01/24 Procedure(s): XR acute abdomen series Accession Number(s): [id number] cc: Norbert Jiang M.D. [place] [address] Patient Name: TAYLOR MCCLELLAN MRN: [id number] date: 1955 Sex: M Assigned Patient Location: [place] Current Patient Location: [place] Accession/Order Number: [id number] Exam Date: 10/01/2024 08:38 Report Date: 10/01/2024 09:45 At the request of: NORBERT JIANG Procedure: XR acute abdomen series EXAMINATION: XR acute abdomen series HISTORY: abd pain COMPARISON: 09/30/2024 FINDINGS: LUNGS: Mild diffuse patchy parenchymal infiltrates with a central distribution. Peripheral intralobular septal thickening MEDIASTINUM: No abnormal widening. Median sternotomy wires BOWEL GAS PATTERN: Non-obstructed. FREE AIR: None. CALCIFICATIONS: None significant. BONES: No fracture or visible bone lesion. Moderate degenerative changes. Right L4-L5 transpedicular fusion. Moderate to severe bilateral hip osteoarthritis OTHER: Intensive vascular calcifications with stents XR/XR acute abdomen series IMPRESSION: Mild or early pulmonary edema Nonobstructive bowel gas pattern Electronically authenticated by: SARAI [place] Date: 10/01/2024 09:45 Dictated By: Sarai Kirkland M.D. Signed By: 10/01/24947 DD/ 4 TD/TT: Newsagent: [place] [address] XRay Report Signed Patient: PEDRO LUIS MCCLELLAN PH MR#: [id number] : 1955 Acct:[id number] Age/Sex: 69 / M ADM Date: 09/28/24 Loc: MS 215-[address]: Dixie Jiang M.D. Ordering Physician: Norbert Jiang M.D. Date of Service: 10/01/24 Procedure(s): XR acu te abdomen series Accession Number(s): [id number] cc: Norbert Jiang M.D. [place] [address] Patient Name: TAYLOR MCCLELLAN MRN: [id number] date: 1955 Sex: M Assigned Patient Location: MS Current Patient Loca tion: MS Accession/Order Numb er: [id number] Exam Date: 10/01/2024 08:38 Report Date: 10/01/2024 09:45 At the request of: NORBERT JIANG Procedure: XR acute abdomen series EXAMINATION: XR acut e abdomen series HISTORY: abd pain COMPARISON: 09/30/2024 FINDINGS: LUNGS: Mild diffuse patchy parenchymal infiltrates with a central distribution. Peripheral intralobu lar septal thickening MEDIASTINUM: No abno rmal widening. Median sternotomy wires BOWEL GAS PATTERN: Non-obstructed. FREE AIR: None. CALCIFICATIONS: None significant. BONES: No fracture o r visible bone lesion. Moderate degenerative changes. Right L4-L5 transpedicular fusion. Moderate to severe bilateral hip osteoarthritis OTHER: Intensive vas cular calcifications with stents X R/XR acute abdomen series IMPRESSION: Mild or early pulmon ernie edema Nonobstructive bowel gas pattern Electronically authenticated by: SARAI KIRKLAND Date: 10/01/2024 09:45 Dictated By: Hai Kirkland M.D. Signed By: 10/01/24 0948 DD/ 0945 TD/TT: Newsagent: PROF Acuña(COMP METB) Reviewed date:09/30/2024 03:16:15 PM Interpretation: Performing Lab: Notes/Report: [facility] , Sodium 144 136-145 mmol/L Potassium 3.8 3.5-5.1 mmol/L Chloride 107 98-107 mmol/L Carbon Dioxide 26.3 21.0-32.0 mmol/L Anion Gap 14.5 Glucose 175 74-106 mg/dL Blood Urea Nitrogen 39.0 7.0-18.0 mg/dL Creatinine 1.30 0.70-1.30 mg/dL Estimated GFR ( Aura >60 >=60 mL/min/1.73m 2 Estimated GFR (Non- Sandy 55 >=60 mL/min/1.73m 2 BUN Creatinine Ratio 30.0 Calcium 8.0 8.5-10.1 mg/dL Bilirubin Total 0.3 0.2-1.0 mg/dL Aspartate Amino Transferase 67 15-37 U/L Alanine Aminotransferase 27 16-63 U/L Alkaline Phosphatase 36 46-116 U/L Total Protein 6.2 6.4-8.2 g/dL Albumin Level 2.1 3.4-5.0 g/dL Globulin 4.1 Albumin Globulin Ratio 0.5 Performing Lab: see note ML - [facility] LB CBC AUTO DIFF Reviewed date:09/30/2024 03:16:15 PM Interpretation: Performing Lab: Notes/Report: [facility] , White Blood Count 6.5 4.0-11.0 10 3/uL Red Blood Count 3.40 4.70-6.10 10 6/uL Hemoglobin 10.2 14.0-18.0 g/dL Hematocrit 31.0 42.0-54.0 % Mean Corpuscular Volume 91.2 80.0-94.0 fL Mean Corpuscular Hemoglobin 30.0 25.9-34.0 pg Mean Corpuscular HGB Conc 32.9 29.9-35.2 g/dL Red Cell Distribution Width 13.5 11.0-15.0 % Platelet Count 171 150-450 10 3/uL Mean Platelet Volume 12.7 9.5-13.5 fL Neutrophils Percent Auto 71.4 43.0-75.0 % Lymphocytes Percent Auto 15.0 20.5-60.0 % Monocytes Percent Auto 10.7 1.7-12.0 % Eosinophils Percent Auto 0.0 0.9-7.0 % Basophils Percent Auto 0.6 0.2-2.0 % Immature Granulocytes Pct Auto 2.3 0.0-0.5 % Neutrophils Absolute Auto 4.6 1.4-6.5 10 3/uL Lymphocytes Absolute Auto 1.0 1.2-3.8 10 3/uL Monocytes Absolute Auto 0.7 0.3-0.8 10 3/uL Eosinophils Absolute Auto 0.0 0.0-0.7 10 3/uL Basophils Absolute Auto 0.0 0.0-0.1 10 3/uL Immature Granulocytes Abs Auto 0.15 0.00-0.03 10 3/uL Performing Lab: see note ML - [facility] BNP Reviewed date:09/30/2024 03:16:15 PM Interpretation: Performing Lab: Notes/Report: [facility] , NT Pro B Type Natriuretic Pept 1819.0 <=900.0 pg/mL RESULTS CALLED TO AISHWARYA LEE RN @BY Lizeth Pugh at 0613 Performing Lab: see note ML - [facility] LB CA echo limited Reviewed date:09/29/2024 07:15:43 PM Interpretation: Performing Lab: Notes/Report: Source Facility: [facility]-[address] [place] [address] [place] [address] Cardiology Report Signed Patient: TAYLOR MCCLELLAN MR#: [id number] : 1955 Acct:[id number] Age/Sex: 69 / M ADM Date: 09/28/24 Loc: ICU 275-[address]: Norbert Jiang M.D. Ordering Physician: Norbert Jiang M.D. Date of Service: 09/29/24 Procedure(s): CA echo limited Accession Number(s): [id number] cc: Norbert Jiang M.D. Patient Name: TAYLOR MCCLELLAN MR#: [id number] : 1955 Exam Date: 09/29/2024 Ordering Doctor: DR NORBERT JIANG . ECHOCARDIOGRAM REPORT PROCEDURE: CA ECHO LIMITED INDICATIONS: elevated bnp, pneumonia, CABG, hypertension, diabetes COMPARISON: None. DESCRIPTION: Limited ECHOCARDIOGRAM Real-time transthoracic echocardiography with 2D and M-mode performed. QUALITY: Limited echocardiogram per physician order. LEFT VENTRICLE: Normal chamber size. Mild concentric left ventricular hypertrophy. Normal systolic function. LV EF: Normal left ventricular ejection fraction, (55%). DIASTOLIC: ATRIAL SEPTUM: LEFT ATRIUM: Normal chamber size. RIGHT ATRIUM: Normal chamber size. RIGHT VENTRICLE: Normal chamber size. Normal systolic function. TRICUSPID VALVE: Normal mobility and thickness. MITRAL VALVE: Normal mobility and thickness. AORTIC VALVE: Normal trileaflet appearance. No visible sclerosis. Normal leaflet mobility. Moderate posterior mitral annular calcification. AORTIC ROOT: Normal diameter and appearance. PULMONIC VALVE: Not well visualized. PERICARDIUM: No evidence of pericardial effusion. IVC: PLEURA: CONCLUSION: 1. Mild concentric left ventricular hypertrophy with normal systolic function. Estimated LVEF is 55%. 2. Normal right ventricular size and systolic function. 3. No pericardial effusion. 4. Limited study performed with no Doppler interrogation as requested. Adult Echocardiography Procedure Report Left Ventricle LVEDD (3.7 - 5.6 cm): 3.80 cm LVESD (2.2 - 4.0 cm): 2.94 cm LVIVS thickness (0.6 - 1.2 cm): 1.18 cm LVPW thickness (0.5 - 1.0 cm): 1.07 cm LVOT Diameter 2.09 cm Left Atrium Left Atrium Systolic Dimension: 3.84 cm Mitral Valve Right Ventricle Aorta AO Root Diam: 3.67 cm Aortic Valve Tricuspid Valve Pulmonic Valve Right Atrium Dictated by: Dora Moffett M.D. on 09/29/2024 at 18:58 Approved by: Dora Moffett M.D. on 09/29/2024 at 19:01 Dictated By: DORA MOFFETT Signed By: 09/29/241900 DD/ 00 TD/TT: Newsagent: [place] [address] Cardiology Report Signed Patient: PEDRO LUIS MCCLELLAN PRASHANTH Meehan MR#: [id number] : 1955 Acct:[id number] Age/Sex: 69 / M ADM Date: 09/28/24 Loc: ICU 275-[address]: Dixie Jiang M.D. Ordering Physician: Norbert Jiang M.D. Date of Service: 09/29/24 Procedure(s): CA ech o limited Accession Number(s): [id number] cc: Norbert Jiang M.D. Patient Name: TAYLOR MCCLELLAN MR#: [id number] : 1955 Exam Date: 09/29/2024 Ordering Doctor: DR NORBRET JIANG . ECHOCARDIOGRAM REPORT PROCEDURE: CA ECHO LIMITED INDICATIONS: elevate d bnp, pneumonia, CABG, hypertension, diabetes COMPARISON: None. DESCRIPTION: Limited ECHOCARDIOGRAM Real-time transthoracic echocardiography wit h 2D and M-mode performed. QUALITY: Limited echocardiogram per physician order. LEFT VENTRICLE: Norm al chamber size. Mild concentric left ventricular hypertrophy. Normal systolic function. LV EF: Normal left ventricular ejection fraction, (55%). DIASTOLIC: ATRIAL SEPTUM: LEFT ATRIUM: Normal chamber size. RIGHT ATRIUM: Normal chamber size. RIGHT VENTRICLE: Nor mal chamber size. Normal systolic function. TRICUSPID VALVE: Nor mal mobility and thickness. MITRAL VALVE: Normal mobility and thickness. AORTIC VALVE: Normal trileaflet appearance. No visible sclerosis. Normal leaflet mobility. Moderate posterior mitral annular calcification. AORTIC ROOT: Normal diameter and appearance. PULMONIC VALVE: Not well visualized. PERICARDIUM: No evid ence of pericardial effusion. IVC: PLEURA: CONCLUSION: 1. Mild concentric l eft ventricular hypertrophy with normal systolic function. Estimated LVEF is 55%. 2. Normal right ventricular size and systolic function. 3. No pericardial effusion. 4. Limited study performed with no Doppler interrogation as requested. Adult Echocardiograp hy Procedure Report Left Ventricle LVEDD (3.7 - 5.6 cm) : 3.80 cm LVESD (2.2 - 4.0 cm) : 2.94 cm LVIVS thickness (0.6 - 1.2 cm): 1.18 cm LVPW thickness (0.5 - 1.0 cm): 1.07 cm LVOT Diameter 2.09 cm Left Atrium Left Atrium Systolic Dimension: 3.84 cm Mitral Valve Right Ventricle Aorta AO Root Diam: 3.67 cm Aortic Valve Tricuspid Valve Pulmonic Valve Right Atrium Dictated by: Dora Moffett M.D. on 09/29/2024 at 18:58 Approved by: Dora Moffett M.D. on 09/29/2024 at 19:01 Dictated By: DORA MOFFETT Signed By: 09/29/241900 DD/ 00 TD/TT: Newsagent: Aerobe ID + Suscept Reviewed date:10/08/2024 08:07:08 PM Interpretation: Performing Lab: Notes/Report: [facility] , Aerobe ID + Suscept See Below For Report Aerobe ID + Suscept Methicillin Resis Staph Aureus O:MRSA Isolated Organism: 1.1 Antibiotic Interpretation CASSIE Status Aerobe ID + Suscept *ABNORMAL* Aerobe ID + Suscept Methicillin Resis Staph Aureus O:MRSA Isolated Organism: 1.1 Antibiotic Interpretation CASSIE Status Aerobe ID + Suscept Received aerobic bot tle only. Aerobe ID + Suscept Methicillin Resis Staph Aureus O:MRSA Isolated Organism: 1.1 Antibiotic Interpretation CASSIE Status Aerobe ID + Suscept Methicillin Resis St aph Aureus Aerobe ID + Suscept Methicillin Resis Staph Aureus O:MRSA Isolated Organism: 1.1 Antibiotic Interpretation CASSIE Status Aerobe ID + Suscept Based on resistance to oxacillin this isolate would be Aerobe ID + Suscept Methicillin Resis Staph Aureus O:MRSA Isolated Organism: 1.1 Antibiotic Interpretation CASSIE Status Aerobe ID + Suscept resistant to Aerobe ID + Suscept Methicillin Resis Staph Aureus O:MRSA Isolated Organism: 1.1 Antibiotic Interpretation CASSIE Status Aerobe ID + Suscept all currently availa ble beta-lactam antimicrobial agents, Aerobe ID + Suscept Methicillin Resis Staph Aureus O:MRSA Isolated Organism: 1.1 Antibiotic Interpretation CASSIE Status Aerobe ID + Suscept with the Aerobe ID + Suscept Methicillin Resis Staph Aureus O:MRSA Isolated Organism: 1.1 Antibiotic Interpretation CASSIE Status Aerobe ID + Suscept exception of the new er cephalosporins with anti-MRSA Aerobe ID + Suscept Methicillin Resis Staph Aureus O:MRSA Isolated Organism: 1.1 Antibiotic Interpretation CASSIE Status Aerobe ID + Suscept activity, such as Aerobe ID + Suscept Methicillin Resis Staph Aureus O:MRSA Isolated Organism: 1.1 Antibiotic Interpretation CASSIE Status Aerobe ID + Suscept Ceftaroline Aerobe ID + Suscept Methicillin Resis Staph Aureus O:MRSA Isolated Organism: 1.1 Antibiotic Interpretation CASSIE Status Aerobe ID + Suscept See Below For Report Aerobe ID + Suscept Methicillin Resis Staph Aureus O:MRSA Isolated Organism: 1.1 Antibiotic Interpretation CASSIE Status Aerobe ID + Suscept Performed at: [facility] Aerobe ID + Suscept Methicillin Resis Staph Aureus O:MRSA Isolated Organism: 1.1 Antibiotic Interpretation CASSIE Status Aerobe ID + Suscept [address] [place], [place] [id number] Aerobe ID + Suscept Methicillin Resis Staph Aureus O:MRSA Isolated Organism: 1.1 Antibiotic Interpretation CASSIE Status Aerobe ID + Suscept Elementary Educator: Cindy Cabral PhD, Phone: [phone] Aerobe ID + Suscept Methicillin Resis Staph Aureus O:MRSA Isolated Organism: 1.1 Antibiotic Interpretation CASSIE Status Aerobe ID + Suscept See Below For Report Aerobe ID + Suscept Methicillin Resis Staph Aureus O:MRSA Isolated Organism: 1.1 Antibiotic Interpretation CASSIE Status Aerobe ID + Suscept Ciprofloxacin R F Aerobe ID + Suscept Methicillin Resis Staph Aureus O:MRSA Isolated Organism: 1.1 Antibiotic Interpretation CASSIE Status Aerobe ID + Suscept Clindamycin R F Aerobe ID + Suscept Methicillin Resis Staph Aureus O:MRSA Isolated Organism: 1.1 Antibiotic Interpretation CASSIE Status Aerobe ID + Suscept Erythromycin R F Aerobe ID + Suscept Methicillin Resis Staph Aureus O:MRSA Isolated Organism: 1.1 Antibiotic Interpretation CASSIE Status Aerobe ID + Suscept Gentamicin S F Aerobe ID + Suscept Methicillin Resis Staph Aureus O:MRSA Isolated Organism: 1.1 Antibiotic Interpretation CASSIE Status Aerobe ID + Suscept Levofloxacin R F Aerobe ID + Suscept Methicillin Resis Staph Aureus O:MRSA Isolated Organism: 1.1 Antibiotic Interpretation CASSIE Status Aerobe ID + Suscept Linezolid S F Aerobe ID + Suscept Methicillin Resis Staph Aureus O:MRSA Isolated Organism: 1.1 Antibiotic Interpretation CASSIE Status Aerobe ID + Suscept Oxacillin R F Aerobe ID + Suscept Methicillin Resis Staph Aureus O:MRSA Isolated Organism: 1.1 Antibiotic Interpretation CASSIE Status Aerobe ID + Suscept Penicillin R F Aerobe ID + Suscept Methicillin Resis Staph Aureus O:MRSA Isolated Organism: 1.1 Antibiotic Interpretation CASSIE Status Aerobe ID + Suscept Rifampin S F Aerobe ID + Suscept Methicillin Resis Staph Aureus O:MRSA Isolated Organism: 1.1 Antibiotic Interpretation CASSIE Status Aerobe ID + Suscept Tetracycline S F Aerobe ID + Suscept Methicillin Resis Staph Aureus O:MRSA Isolated Organism: 1.1 Antibiotic Interpretation CASSIE Status Aerobe ID + Suscept Trimethoprim/Sulfame thoxa zole R F Aerobe ID + Suscept Methicillin Resis Staph Aureus O:MRSA Isolated Organism: 1.1 Antibiotic Interpretation CASSIE Status Aerobe ID + Suscept Vancomycin S F Aerobe ID + Suscept Methicillin Resis Staph Aureus O:MRSA Isolated Organism: 1.1 Antibiotic Interpretation CASSIE Status Performing Lab: see note LC - [facility] LB SEE REPORT - Tool Maker Id information not found for OBX-specific technology risk intern legend Lower Respiratory Culture Reviewed date:10/04/2024 12:22:37 PM Interpretation: Performing Lab: Notes/Report: [facility] , Lower Respiratory Culture See Below For Report Lower Respiratory Culture WILL FOLLOW O:MRSA Isolated O:STAAUR Isolated Organism: 8.1 Antibiotic Interpretation CASSIE Status Ciprofloxacin Ciprofloxacin R F Erythromycin Erythromycin R F Gentamicin Gentamicin S F Levofloxacin Levofloxacin R F Linezolid Linezolid S F Oxacillin Oxacillin R F Penicillin Penicillin R F Rifampin Rifampin S F Tetracycline Tetracycline S F Trimethoprim/Sulfamet hoxazole Trimethoprim/Sulfamet hoxazole R F Vancomycin Vancomycin S F Clindamycin Clindamycin R F Lower Respiratory Culture Organism: Staphylococcus aureus : Lower Respiratory Culture WILL FOLLOW O:MRSA Isolated O:STAAUR Isolated Organism: 8.1 Antibiotic Interpretation CASSIE Status Ciprofloxacin Ciprofloxacin R F Erythromycin Erythromycin R F Gentamicin Gentamicin S F Levofloxacin Levofloxacin R F Linezolid Linezolid S F Oxacillin Oxacillin R F Penicillin Penicillin R F Rifampin Rifampin S F Tetracycline Tetracycline S F Trimethoprim/Sulfamet hoxazole Trimethoprim/Sulfamet hoxazole R F Vancomycin Vancomycin S F Clindamycin Clindamycin R F Lower Respiratory Culture *ABNORMAL* Lower Respiratory Culture WILL FOLLOW O:MRSA Isolated O:STAAUR Isolated Organism: 8.1 Antibiotic Interpretation CASSIE Status Ciprofloxacin Ciprofloxacin R F Erythromycin Erythromycin R F Gentamicin Gentamicin S F Levofloxacin Levofloxacin R F Linezolid Linezolid S F Oxacillin Oxacillin R F Penicillin Penicillin R F Rifampin Rifampin S F Tetracycline Tetracycline S F Trimethoprim/Sulfamet hoxazole Trimethoprim/Sulfamet hoxazole R F Vancomycin Vancomycin S F Clindamycin Clindamycin R F Lower Respiratory Culture Heavy growth Lower Respiratory Culture WILL FOLLOW O:MRSA Isolated O:STAAUR Isolated Organism: 8.1 Antibiotic Interpretation CASSIE Status Ciprofloxacin Ciprofloxacin R F Erythromycin Erythromycin R F Gentamicin Gentamicin S F Levofloxacin Levofloxacin R F Linezolid Linezolid S F Oxacillin Oxacillin R F Penicillin Penicillin R F Rifampin Rifampin S F Tetracycline Tetracycline S F Trimethoprim/Sulfamet hoxazole Trimethoprim/Sulfamet hoxazole R F Vancomycin Vancomycin S F Clindamycin Clindamycin R F Lower Respiratory Culture Staphylococcus aureus Lower Respiratory Culture WILL FOLLOW O:MRSA Isolated O:STAAUR Isolated Organism: 8.1 Antibiotic Interpretation CASSIE Status Ciprofloxacin Ciprofloxacin R F Erythromycin Erythromycin R F Gentamicin Gentamicin S F Levofloxacin Levofloxacin R F Linezolid Linezolid S F Oxacillin Oxacillin R F Penicillin Penicillin R F Rifampin Rifampin S F Tetracycline Tetracycline S F Trimethoprim/Sulfamet hoxazole Trimethoprim/Sulfamet hoxazole R F Vancomycin Vancomycin S F Clindamycin Clindamycin R F Lower Respiratory Culture Organism: Methicillin Resis Staph Aureus : Lower Respiratory Culture WILL FOLLOW O:MRSA Isolated O:STAAUR Isolated Organism: 8.1 Antibiotic Interpretation CASSIE Status Ciprofloxacin Ciprofloxacin R F Erythromycin Erythromycin R F Gentamicin Gentamicin S F Levofloxacin Levofloxacin R F Linezolid Linezolid S F Oxacillin Oxacillin R F Penicillin Penicillin R F Rifampin Rifampin S F Tetracycline Tetracycline S F Trimethoprim/Sulfamet hoxazole Trimethoprim/Sulfamet hoxazole R F Vancomycin Vancomycin S F Clindamycin Clindamycin R F Lower Respiratory Culture *ABNORMAL* Lower Respiratory Culture WILL FOLLOW O:MRSA Isolated O:STAAUR Isolated Organism: 8.1 Antibiotic Interpretation CASSIE Status Ciprofloxacin Ciprofloxacin R F Erythromycin Erythromycin R F Gentamicin Gentamicin S F Levofloxacin Levofloxacin R F Linezolid Linezolid S F Oxacillin Oxacillin R F Penicillin Penicillin R F Rifampin Rifampin S F Tetracycline Tetracycline S F Trimethoprim/Sulfamet hoxazole Trimethoprim/Sulfamet hoxazole R F Vancomycin Vancomycin S F Clindamycin Clindamycin R F Lower Respiratory Culture Methicillin - resistant Lower Respiratory Culture WILL FOLLOW O:MRSA Isolated O:STAAUR Isolated Organism: 8.1 Antibiotic Interpretation CASSIE Status Ciprofloxacin Ciprofloxacin R F Erythromycin Erythromycin R F Gentamicin Gentamicin S F Levofloxacin Levofloxacin R F Linezolid Linezolid S F Oxacillin Oxacillin R F Penicillin Penicillin R F Rifampin Rifampin S F Tetracycline Tetracycline S F Trimethoprim/Sulfamet hoxazole Trimethoprim/Sulfamet hoxazole R F Vancomycin Vancomycin S F Clindamycin Clindamycin R F Lower Respiratory Culture Based on resistance to oxacillin this isolate would be Lower Respiratory Culture WILL FOLLOW O:MRSA Isolated O:STAAUR Isolated Organism: 8.1 Antibiotic Interpretation CASSIE Status Ciprofloxacin Ciprofloxacin R F Erythromycin Erythromycin R F Gentamicin Gentamicin S F Levofloxacin Levofloxacin R F Linezolid Linezolid S F Oxacillin Oxacillin R F Penicillin Penicillin R F Rifampin Rifampin S F Tetracycline Tetracycline S F Trimethoprim/Sulfamet hoxazole Trimethoprim/Sulfamet hoxazole R F Vancomycin Vancomycin S F Clindamycin Clindamycin R F Lower Respiratory Culture resistant to all currently available beta-lactam Lower Respiratory Culture WILL FOLLOW O:MRSA Isolated O:STAAUR Isolated Organism: 8.1 Antibiotic Interpretation CASSIE Status Ciprofloxacin Ciprofloxacin R F Erythromycin Erythromycin R F Gentamicin Gentamicin S F Levofloxacin Levofloxacin R F Linezolid Linezolid S F Oxacillin Oxacillin R F Penicillin Penicillin R F Rifampin Rifampin S F Tetracycline Tetracycline S F Trimethoprim/Sulfamet hoxazole Trimethoprim/Sulfamet hoxazole R F Vancomycin Vancomycin S F Clindamycin Clindamycin R F Lower Respiratory Culture antimicrobial agents, with the exception of the newer Lower Respiratory Culture WILL FOLLOW O:MRSA Isolated O:STAAUR Isolated Organism: 8.1 Antibiotic Interpretation CASSIE Status Ciprofloxacin Ciprofloxacin R F Erythromycin Erythromycin R F Gentamicin Gentamicin S F Levofloxacin Levofloxacin R F Linezolid Linezolid S F Oxacillin Oxacillin R F Penicillin Penicillin R F Rifampin Rifampin S F Tetracycline Tetracycline S F Trimethoprim/Sulfamet hoxazole Trimethoprim/Sulfamet hoxazole R F Vancomycin Vancomycin S F Clindamycin Clindamycin R F Lower Respiratory Culture cephalosporins with anti-MRSA activity, such as Lower Respiratory Culture WILL FOLLOW O:MRSA Isolated O:STAAUR Isolated Organism: 8.1 Antibiotic Interpretation CASSIE Status Ciprofloxacin Ciprofloxacin R F Erythromycin Erythromycin R F Gentamicin Gentamicin S F Levofloxacin Levofloxacin R F Linezolid Linezolid S F Oxacillin Oxacillin R F Penicillin Penicillin R F Rifampin Rifampin S F Tetracycline Tetracycline S F Trimethoprim/Sulfamet hoxazole Trimethoprim/Sulfamet hoxazole R F Vancomycin Vancomycin S F Clindamycin Clindamycin R F Lower Respiratory Culture Ceftaroline Lower Respiratory Culture WILL FOLLOW O:MRSA Isolated O:STAAUR Isolated Organism: 8.1 Antibiotic Interpretation CASSIE Status Ciprofloxacin Ciprofloxacin R F Erythromycin Erythromycin R F Gentamicin Gentamicin S F Levofloxacin Levofloxacin R F Linezolid Linezolid S F Oxacillin Oxacillin R F Penicillin Penicillin R F Rifampin Rifampin S F Tetracycline Tetracycline S F Trimethoprim/Sulfamet hoxazole Trimethoprim/Sulfamet hoxazole R F Vancomycin Vancomycin S F Clindamycin Clindamycin R F Lower Respiratory Culture Heavy growth Lower Respiratory Culture WILL FOLLOW O:MRSA Isolated O:STAAUR Isolated Organism: 8.1 Antibiotic Interpretation CASSIE Status Ciprofloxacin Ciprofloxacin R F Erythromycin Erythromycin R F Gentamicin Gentamicin S F Levofloxacin Levofloxacin R F Linezolid Linezolid S F Oxacillin Oxacillin R F Penicillin Penicillin R F Rifampin Rifampin S F Tetracycline Tetracycline S F Trimethoprim/Sulfamet hoxazole Trimethoprim/Sulfamet hoxazole R F Vancomycin Vancomycin S F Clindamycin Clindamycin R F Lower Respiratory Culture Methicillin Resis Staph Aureus Lower Respiratory Culture WILL FOLLOW O:MRSA Isolated O:STAAUR Isolated Organism: 8.1 Antibiotic Interpretation CASSIE Status Ciprofloxacin Ciprofloxacin R F Erythromycin Erythromycin R F Gentamicin Gentamicin S F Levofloxacin Levofloxacin R F Linezolid Linezolid S F Oxacillin Oxacillin R F Penicillin Penicillin R F Rifampin Rifampin S F Tetracycline Tetracycline S F Trimethoprim/Sulfamet hoxazole Trimethoprim/Sulfamet hoxazole R F Vancomycin Vancomycin S F Clindamycin Clindamycin R F Lower Respiratory Culture See Below For Report Lower Respiratory Culture WILL FOLLOW O:MRSA Isolated O:STAAUR Isolated Organism: 8.1 Antibiotic Interpretation CASSIE Status Ciprofloxacin Ciprofloxacin R F Erythromycin Erythromycin R F Gentamicin Gentamicin S F Levofloxacin Levofloxacin R F Linezolid Linezolid S F Oxacillin Oxacillin R F Penicillin Penicillin R F Rifampin Rifampin S F Tetracycline Tetracycline S F Trimethoprim/Sulfamet hoxazole Trimethoprim/Sulfamet hoxazole R F Vancomycin Vancomycin S F Clindamycin Clindamycin R F Lower Respiratory Culture See Below For Report Lower Respiratory Culture WILL FOLLOW O:MRSA Isolated O:STAAUR Isolated Organism: 8.1 Antibiotic Interpretation CASSIE Status Ciprofloxacin Ciprofloxacin R F Erythromycin Erythromycin R F Gentamicin Gentamicin S F Levofloxacin Levofloxacin R F Linezolid Linezolid S F Oxacillin Oxacillin R F Penicillin Penicillin R F Rifampin Rifampin S F Tetracycline Tetracycline S F Trimethoprim/Sulfamet hoxazole Trimethoprim/Sulfamet hoxazole R F Vancomycin Vancomycin S F Clindamycin Clindamycin R F Lower Respiratory Culture Performed at: [facility] Lower Respiratory Culture WILL FOLLOW O:MRSA Isolated O:STAAUR Isolated Organism: 8.1 Antibiotic Interpretation CASSIE Status Ciprofloxacin Ciprofloxacin R F Erythromycin Erythromycin R F Gentamicin Gentamicin S F Levofloxacin Levofloxacin R F Linezolid Linezolid S F Oxacillin Oxacillin R F Penicillin Penicillin R F Rifampin Rifampin S F Tetracycline Tetracycline S F Trimethoprim/Sulfamet hoxazole Trimethoprim/Sulfamet hoxazole R F Vancomycin Vancomycin S F Clindamycin Clindamycin R F Lower Respiratory Culture [address] [facility] [place] [id number] Lower Respiratory Culture WILL FOLLOW O:MRSA Isolated O:STAAUR Isolated Organism: 8.1 Antibiotic Interpretation CASSIE Status Ciprofloxacin Ciprofloxacin R F Erythromycin Erythromycin R F Gentamicin Gentamicin S F Levofloxacin Levofloxacin R F Linezolid Linezolid S F Oxacillin Oxacillin R F Penicillin Penicillin R F Rifampin Rifampin S F Tetracycline Tetracycline S F Trimethoprim/Sulfamet hoxazole Trimethoprim/Sulfamet hoxazole R F Vancomycin Vancomycin S F Clindamycin Clindamycin R F Lower Respiratory Culture Elementary Educator: Arnold Cabral PhD, Phone: [phone] Lower Respiratory Culture WILL FOLLOW O:MRSA Isolated O:STAAUR Isolated Organism: 8.1 Antibiotic Interpretation CASSIE Status Ciprofloxacin Ciprofloxacin R F Erythromycin Erythromycin R F Gentamicin Gentamicin S F Levofloxacin Levofloxacin R F Linezolid Linezolid S F Oxacillin Oxacillin R F Penicillin Penicillin R F Rifampin Rifampin S F Tetracycline Tetracycline S F Trimethoprim/Sulfamet hoxazole Trimethoprim/Sulfamet hoxazole R F Vancomycin Vancomycin S F Clindamycin Clindamycin R F Lower Respiratory Culture See Below For Report Lower Respiratory Culture WILL FOLLOW O:MRSA Isolated O:STAAUR Isolated Organism: 8.1 Antibiotic Interpretation CASSIE Status Ciprofloxacin Ciprofloxacin R F Erythromycin Erythromycin R F Gentamicin Gentamicin S F Levofloxacin Levofloxacin R F Linezolid Linezolid S F Oxacillin Oxacillin R F Penicillin Penicillin R F Rifampin Rifampin S F Tetracycline Tetracycline S F Trimethoprim/Sulfamet hoxazole Trimethoprim/Sulfamet hoxazole R F Vancomycin Vancomycin S F Clindamycin Clindamycin R F Lower Respiratory Culture See Below For Report Lower Respiratory Culture WILL FOLLOW O:MRSA Isolated O:STAAUR Isolated Organism: 8.1 Antibiotic Interpretation CASSIE Status Ciprofloxacin Ciprofloxacin R F Erythromycin Erythromycin R F Gentamicin Gentamicin S F Levofloxacin Levofloxacin R F Linezolid Linezolid S F Oxacillin Oxacillin R F Penicillin Penicillin R F Rifampin Rifampin S F Tetracycline Tetracycline S F Trimethoprim/Sulfamet hoxazole Trimethoprim/Sulfamet hoxazole R F Vancomycin Vancomycin S F Clindamycin Clindamycin R F Lower Respiratory Culture See Below For Report Lower Respiratory Culture WILL FOLLOW O:MRSA Isolated O:STAAUR Isolated Organism: 8.1 Antibiotic Interpretation CASSIE Status Ciprofloxacin Ciprofloxacin R F Erythromycin Erythromycin R F Gentamicin Gentamicin S F Levofloxacin Levofloxacin R F Linezolid Linezolid S F Oxacillin Oxacillin R F Penicillin Penicillin R F Rifampin Rifampin S F Tetracycline Tetracycline S F Trimethoprim/Sulfamet hoxazole Trimethoprim/Sulfamet hoxazole R F Vancomycin Vancomycin S F Clindamycin Clindamycin R F Lower Respiratory Culture See Below For Report Lower Respiratory Culture WILL FOLLOW O:MRSA Isolated O:STAAUR Isolated Organism: 8.1 Antibiotic Interpretation CASSIE Status Ciprofloxacin Ciprofloxacin R F Erythromycin Erythromycin R F Gentamicin Gentamicin S F Levofloxacin Levofloxacin R F Linezolid Linezolid S F Oxacillin Oxacillin R F Penicillin Penicillin R F Rifampin Rifampin S F Tetracycline Tetracycline S F Trimethoprim/Sulfamet hoxazole Trimethoprim/Sulfamet hoxazole R F Vancomycin Vancomycin S F Clindamycin Clindamycin R F Lower Respiratory Culture See Below For Report Lower Respiratory Culture WILL FOLLOW O:MRSA Isolated O:STAAUR Isolated Organism: 8.1 Antibiotic Interpretation CASSIE Status Ciprofloxacin Ciprofloxacin R F Erythromycin Erythromycin R F Gentamicin Gentamicin S F Levofloxacin Levofloxacin R F Linezolid Linezolid S F Oxacillin Oxacillin R F Penicillin Penicillin R F Rifampin Rifampin S F Tetracycline Tetracycline S F Trimethoprim/Sulfamet hoxazole Trimethoprim/Sulfamet hoxazole R F Vancomycin Vancomycin S F Clindamycin Clindamycin R F Lower Respiratory Culture See Below For Report Lower Respiratory Culture WILL FOLLOW O:MRSA Isolated O:STAAUR Isolated Organism: 8.1 Antibiotic Interpretation CASSIE Status Ciprofloxacin Ciprofloxacin R F Erythromycin Erythromycin R F Gentamicin Gentamicin S F Levofloxacin Levofloxacin R F Linezolid Linezolid S F Oxacillin Oxacillin R F Penicillin Penicillin R F Rifampin Rifampin S F Tetracycline Tetracycline S F Trimethoprim/Sulfamet hoxazole Trimethoprim/Sulfamet hoxazole R F Vancomycin Vancomycin S F Clindamycin Clindamycin R F Lower Respiratory Culture See Below For Report Lower Respiratory Culture WILL FOLLOW O:MRSA Isolated O:STAAUR Isolated Organism: 8.1 Antibiotic Interpretation CASSIE Status Ciprofloxacin Ciprofloxacin R F Erythromycin Erythromycin R F Gentamicin Gentamicin S F Levofloxacin Levofloxacin R F Linezolid Linezolid S F Oxacillin Oxacillin R F Penicillin Penicillin R F Rifampin Rifampin S F Tetracycline Tetracycline S F Trimethoprim/Sulfamet hoxazole Trimethoprim/Sulfamet hoxazole R F Vancomycin Vancomycin S F Clindamycin Clindamycin R F Lower Respiratory Culture See Below For Report Lower Respiratory Culture WILL FOLLOW O:MRSA Isolated O:STAAUR Isolated Organism: 8.1 Antibiotic Interpretation CASSIE Status Ciprofloxacin Ciprofloxacin R F Erythromycin Erythromycin R F Gentamicin Gentamicin S F Levofloxacin Levofloxacin R F Linezolid Linezolid S F Oxacillin Oxacillin R F Penicillin Penicillin R F Rifampin Rifampin S F Tetracycline Tetracycline S F Trimethoprim/Sulfamet hoxazole Trimethoprim/Sulfamet hoxazole R F Vancomycin Vancomycin S F Clindamycin Clindamycin R F Lower Respiratory Culture See Below For Report Lower Respiratory Culture WILL FOLLOW O:MRSA Isolated O:STAAUR Isolated Organism: 8.1 Antibiotic Interpretation CASSIE Status Ciprofloxacin Ciprofloxacin R F Erythromycin Erythromycin R F Gentamicin Gentamicin S F Levofloxacin Levofloxacin R F Linezolid Linezolid S F Oxacillin Oxacillin R F Penicillin Penicillin R F Rifampin Rifampin S F Tetracycline Tetracycline S F Trimethoprim/Sulfamet hoxazole Trimethoprim/Sulfamet hoxazole R F Vancomycin Vancomycin S F Clindamycin Clindamycin R F Lower Respiratory Culture See Below For Report Lower Respiratory Culture WILL FOLLOW O:MRSA Isolated O:STAAUR Isolated Organism: 8.1 Antibiotic Interpretation CSASIE Status Ciprofloxacin Ciprofloxacin R F Erythromycin Erythromycin R F Gentamicin Gentamicin S F Levofloxacin Levofloxacin R F Linezolid Linezolid S F Oxacillin Oxacillin R F Penicillin Penicillin R F Rifampin Rifampin S F Tetracycline Tetracycline S F Trimethoprim/Sulfamet hoxazole Trimethoprim/Sulfamet hoxazole R F Vancomycin Vancomycin S F Clindamycin Clindamycin R F Lower Respiratory Culture See Below For Report Lower Respiratory Culture WILL FOLLOW O:MRSA Isolated O:STAAUR Isolated Organism: 8.1 Antibiotic Interpretation CASSIE Status Ciprofloxacin Ciprofloxacin R F Erythromycin Erythromycin R F Gentamicin Gentamicin S F Levofloxacin Levofloxacin R F Linezolid Linezolid S F Oxacillin Oxacillin R F Penicillin Penicillin R F Rifampin Rifampin S F Tetracycline Tetracycline S F Trimethoprim/Sulfamet hoxazole Trimethoprim/Sulfamet hoxazole R F Vancomycin Vancomycin S F Clindamycin Clindamycin R F Lower Respiratory Culture See Below For Report Lower Respiratory Culture WILL FOLLOW O:MRSA Isolated O:STAAUR Isolated Organism: 8.1 Antibiotic Interpretation CASSIE Status Ciprofloxacin Ciprofloxacin R F Erythromycin Erythromycin R F Gentamicin Gentamicin S F Levofloxacin Levofloxacin R F Linezolid Linezolid S F Oxacillin Oxacillin R F Penicillin Penicillin R F Rifampin Rifampin S F Tetracycline Tetracycline S F Trimethoprim/Sulfamet hoxazole Trimethoprim/Sulfamet hoxazole R F Vancomycin Vancomycin S F Clindamycin Clindamycin R F Lower Respiratory Culture See Below For Report Lower Respiratory Culture WILL FOLLOW O:MRSA Isolated O:STAAUR Isolated Organism: 8.1 Antibiotic Interpretation CASSIE Status Ciprofloxacin Ciprofloxacin R F Erythromycin Erythromycin R F Gentamicin Gentamicin S F Levofloxacin Levofloxacin R F Linezolid Linezolid S F Oxacillin Oxacillin R F Penicillin Penicillin R F Rifampin Rifampin S F Tetracycline Tetracycline S F Trimethoprim/Sulfamet hoxazole Trimethoprim/Sulfamet hoxazole R F Vancomycin Vancomycin S F Clindamycin Clindamycin R F Performing Lab: see note LC - [facility] LB SEE REPORT - Tool Maker Id information not found for OBX-specific technology risk intern legend BLOOD CULTURE ID PANEL Reviewed date:09/30/2024 03:16:15 PM Interpretation: Performing Lab: Notes/Report: [facility] , CTX-M NOT APPLICABLE NOT DETECTE IMP NOT APPLICABLE NOT DETECTE KPC NOT APPLICABLE NOT DETECTE mcr-1 NOT APPLICABLE NOT DETECTE mecA/C NOT APPLICABLE NOT DETECTE mecA/C and MREJ (MRSA) DETECTED NOT DETECTE RESUL TS CALLED TO BECCA GOFF RN AT 0748 NDM NOT APPLICABLE NOT DETECTE OXA-48-like NOT APPLICABLE NOT DETECTE Lissa/B NOT APPLICABLE NOT DETECTE VIM NOT APPLICABLE NOT DETECTE Source BLOOD Enterococcus faecalis NOT DETECTED NOT DETECTE Enterococcus faecium NOT DETECTED NOT DETECTE Listeria monocytogenes NOT DETECTED NOT DETECTE Staphylococcus spp. DETECTED NOT DETECTE RESULTS CALLED TO BECCA GOFF RN AT 0748 Staphylococcus aureus DETECTED NOT DETECTE RESULT S CALLED TO BECCA GOFF RN AT 0748 Staphylococcus epidermidis NOT DETECTED NOT DETECTE Staphylococcus lugdunensis NOT DETECTED NOT DETECTE Streptococcus spp. NOT DETECTED NOT DETECTE Streptococcus agalactiae NOT DETECTED NOT DETECTE Streptococcus pneumoniae NOT DETECTED NOT DETECTE Streptococcus pyogenes NOT DETECTED NOT DETECTE A. calcoaceticus-baumannii Cpx NOT DETECTED NOT DETECTE Bacteroides fragilis NOT DETECTED NOT DETECTE Enterobacterales NOT DETECTED NOT DETECTE Enterobacter cloacae complex NOT DETECTED NOT DETECTE Escherichia coli NOT DETECTED NOT DETECTE Klebsiella aerogenes NOT DETECTED NOT DETECTE Klebsiella oxytoca NOT DETECTED NOT DETECTE Klebsiella pneumoniae group NOT DETECTED NOT DETECTE Proteus spp. NOT DETECTED NOT DETECTE Salmonella spp. NOT DETECTED NOT DETECTE Serratia marcescens NOT DETECTED NOT DETECTE Haemophilus influenzae NOT DETECTED NOT DETECTE Neisseria meningitidis NOT DETECTED NOT DETECTE Pseudomonas aeruginosa NOT DETECTED NOT DETECTE Stenotrophomonas maltophilia NOT DETECTED NOT DETECTE Emilia albicans NOT DETECTED NOT DETECTE Emilia auris NOT DETECTED NOT DETECTE Emilia glabrata NOT DETECTED NOT DETECTE Emilia krusei NOT DETECTED NOT DETECTE Emilia parapsilosis NOT DETECTED NOT DETECTE Emilia tropicalis NOT DETECTED NOT DETECTE Cryptococcus neoformans/gattii NOT DETECTED NOT DETECTE Performing Lab: see note ML - [facility] LB PROF CHEM 8 (BAS METB) Reviewed date:09/13/2024 05:44:31 PM Interpretation: Performing Lab: Notes/Report: [facility] , Sodium 144 136-145 mmol/L Potassium 4.1 3.5-5.1 mmol/L Chloride 109 98-107 mmol/L Carbon Dioxide 25.4 21.0-32.0 mmol/L Anion Gap 13.7 Glucose 104 74-106 mg/dL Blood Urea Nitrogen 28.0 7.0-18.0 mg/dL Creatinine 1.17 0.70-1.30 mg/dL Estimated GFR ( Aura >60 >=60 mL/min/1.73m 2 Estimated GFR (Non- Sandy >60 >=60 mL/min/1.73m 2 BUN Creatinine Ratio 23.9 Calcium 8.3 8.5-10.1 mg/dL Performing Lab: see note ML - [facility] LB CBC AUTO DIFF Reviewed date:09/13/2024 05:44:31 PM Interpretation: Performing Lab: Notes/Report: [facility] , White Blood Count 3.8 4.0-11.0 10 3/uL Red Blood Count 3.99 4.70-6.10 10 6/uL Hemoglobin 12.1 14.0-18.0 g/dL Hematocrit 37.5 42.0-54.0 % Mean Corpuscular Volume 94.0 80.0-94.0 fL Mean Corpuscular Hemoglobin 30.3 25.9-34.0 pg Mean Corpuscular HGB Conc 32.3 29.9-35.2 g/dL Red Cell Distribution Width 13.1 11.0-15.0 % Platelet Count 161 150-450 10 3/uL Mean Platelet Volume 11.4 9.5-13.5 fL Neutrophils Percent Auto 47.2 43.0-75.0 % Lymphocytes Percent Auto 41.4 20.5-60.0 % Monocytes Percent Auto 10.6 1.7-12.0 % Eosinophils Percent Auto 0.0 0.9-7.0 % Basophils Percent Auto 0.3 0.2-2.0 % Immature Granulocytes Pct Auto 0.5 0.0-0.5 % Neutrophils Absolute Auto 1.8 1.4-6.5 10 3/uL Lymphocytes Absolute Auto 1.6 1.2-3.8 10 3/uL Monocytes Absolute Auto 0.4 0.3-0.8 10 3/uL Eosinophils Absolute Auto 0.0 0.0-0.7 10 3/uL Basophils Absolute Auto 0.0 0.0-0.1 10 3/uL Immature Granulocytes Abs Auto 0.02 0.00-0.03 10 3/uL Performing Lab: see note ML - [facility] LB PROF CHEM 8 (BAS METB) Reviewed date:09/13/2024 05:44:31 PM Interpretation: Performing Lab: Notes/Report: [facility] , Sodium 143 136-145 mmol/L Potassium 4.2 3.5-5.1 mmol/L Chloride 108 98-107 mmol/L Carbon Dioxide 25.8 21.0-32.0 mmol/L Anion Gap 13.4 Glucose 131 74-106 mg/dL Blood Urea Nitrogen 34.0 7.0-18.0 mg/dL Creatinine 1.22 0.70-1.30 mg/dL Estimated GFR ( Aura >60 >=60 mL/min/1.73m 2 Estimated GFR (Non- Sandy 59 >=60 mL/min/1.73m 2 BUN Creatinine Ratio 27.9 Calcium 8.2 8.5-10.1 mg/dL Performing Lab: see note ML - [facility] LB CBC AUTO DIFF Reviewed date:09/13/2024 05:44:31 PM Interpretation: Performing Lab: Notes/Report: [facility] , White Blood Count 3.7 4.0-11.0 10 3/uL Red Blood Count 3.72 4.70-6.10 10 6/uL Hemoglobin 11.5 14.0-18.0 g/dL Hematocrit 34.8 42.0-54.0 % Mean Corpuscular Volume 93.5 80.0-94.0 fL Mean Corpuscular Hemoglobin 30.9 25.9-34.0 pg Mean Corpuscular HGB Conc 33.0 29.9-35.2 g/dL Red Cell Distribution Width 13.2 11.0-15.0 % Platelet Count 157 150-450 10 3/uL Mean Platelet Volume 11.6 9.5-13.5 fL Neutrophils Percent Auto 59.2 43.0-75.0 % Lymphocytes Percent Auto 28.7 20.5-60.0 % Monocytes Percent Auto 11.5 1.7-12.0 % Eosinophils Percent Auto 0.0 0.9-7.0 % Basophils Percent Auto 0.3 0.2-2.0 % Immature Granulocytes Pct Auto 0.3 0.0-0.5 % Neutrophils Absolute Auto 2.2 1.4-6.5 10 3/uL Lymphocytes Absolute Auto 1.1 1.2-3.8 10 3/uL Monocytes Absolute Auto 0.4 0.3-0.8 10 3/uL Eosinophils Absolute Auto 0.0 0.0-0.7 10 3/uL Basophils Absolute Auto 0.0 0.0-0.1 10 3/uL Immature Granulocytes Abs Auto 0.01 0.00-0.03 10 3/uL Performing Lab: see note - [facility] LB BLOOD CULTURE ID PANEL Reviewed date:09/13/2024 05:44:31 PM Interpretation: Performing Lab: Notes/Report: [facility] , CTX-M NOT APPLICABLE NOT DETECTE IMP NOT APPLICABLE NOT DETECTE KPC NOT APPLICABLE NOT DETECTE mcr-1 NOT APPLICABLE NOT DETECTE mecA/C DETECTED NOT DETECTE RESULTS CALLED TO SUSAN CHIN RN at 2313 mecA/C and MREJ (MRSA) NOT APPLICABLE NOT DETECTE NDM NOT APPLICABLE NOT DETECTE OXA-48-like NOT APPLICABLE NOT DETECTE Lissa/B NOT APPLICABLE NOT DETECTE VIM NOT APPLICABLE NOT DETECTE Source BLOOD Enterococcus faecalis NOT DETECTED NOT DETECTE Enterococcus faecium NOT DETECTED NOT DETECTE Listeria monocytogenes NOT DETECTED NOT DETECTE Staphylococcus spp. DETECTED NOT DETECTE RESULTS CALLED TO SUSAN CHIN RN at 2313 Staphylococcus aureus NOT DETECTED NOT DETECTE Staphylococcus epidermidis DETECTED NOT DETECTE RESULTS CALLED TO AKANKSHA CHIN RN at 2313 Staphylococcus lugdunensis NOT DETECTED NOT DETECTE Streptococcus spp. NOT DETECTED NOT DETECTE Streptococcus agalactiae NOT DETECTED NOT DETECTE Streptococcus pneumoniae NOT DETECTED NOT DETECTE Streptococcus pyogenes NOT DETECTED NOT DETECTE A. calcoaceticus-baumannii Cpx NOT DETECTED NOT DETECTE Bacteroides fragilis NOT DETECTED NOT DETECTE Enterobacterales NOT DETECTED NOT DETECTE Enterobacter cloacae complex NOT DETECTED NOT DETECTE Escherichia coli NOT DETECTED NOT DETECTE Klebsiella aerogenes NOT DETECTED NOT DETECTE Klebsiella oxytoca NOT DETECTED NOT DETECTE Klebsiella pneumoniae group NOT DETECTED NOT DETECTE Proteus spp. NOT DETECTED NOT DETECTE Salmonella spp. NOT DETECTED NOT DETECTE Serratia marcescens NOT DETECTED NOT DETECTE Haemophilus influenzae NOT DETECTED NOT DETECTE Neisseria meningitidis NOT DETECTED NOT DETECTE Pseudomonas aeruginosa NOT DETECTED NOT DETECTE Stenotrophomonas maltophilia NOT DETECTED NOT DETECTE Emilia albicans NOT DETECTED NOT DETECTE Emilia auris NOT DETECTED NOT DETECTE Emilia glabrata NOT DETECTED NOT DETECTE Emilia krusei NOT DETECTED NOT DETECTE Emilia parapsilosis NOT DETECTED NOT DETECTE Emilia tropicalis NOT DETECTED NOT DETECTE Cryptococcus neoformans/gattii NOT DETECTED NOT DETECTE Performing Lab: see note ML - [facility] LB PROF CHEM 8 (BAS METB) Reviewed date:05/24/2024 11:12:15 AM Interpretation: Performing Lab: Notes/Report: [facility] , Sodium 141 136-145 mmol/L Potassium 3.6 3.5-5.1 mmol/L Chloride 105 98-107 mmol/L Carbon Dioxide 30.6 21.0-32.0 mmol/L Anion Gap 9.0 Glucose 139 74-106 mg/dL Blood Urea Nitrogen 7.0 7.0-18.0 mg/dL Creatinine 0.91 0.70-1.30 mg/dL Estimated GFR ( Aura >60 >=60 Estimated GFR (Non- Sandy >60 >=60 BUN Creatinine Ratio 7.7 Calcium 8.5 8.5-10.1 mg/dL Performing Lab: see note ML - [facility] LB CBC AUTO DIFF Reviewed date:05/24/2024 11:12:15 AM Interpretation: Performing Lab: Notes/Report: [facility] , White Blood Count 6.6 4.0-11.0 10 3/uL Red Blood Count 3.40 4.70-6.10 10 6/uL Hemoglobin 10.5 14.0-18.0 g/dL Hematocrit 31.8 42.0-54.0 % Mean Corpuscular Volume 93.5 80.0-94.0 fL Mean Corpuscular Hemoglobin 30.9 25.9-34.0 pg Mean Corpuscular HGB Conc 33.0 29.9-35.2 g/dL Red Cell Distribution Width 13.2 11.0-15.0 % Platelet Count 185 150-450 10 3/uL Mean Platelet Volume 11.8 9.5-13.5 fL Neutrophils Percent Auto 66.5 43.0-75.0 % Lymphocytes Percent Auto 21.0 20.5-60.0 % Monocytes Percent Auto 7.9 1.7-12.0 % Eosinophils Percent Auto 3.8 0.9-7.0 % Basophils Percent Auto 0.5 0.2-2.0 % Immature Granulocytes Pct Auto 0.3 0.0-0.5 % Neutrophils Absolute Auto 4.4 1.4-6.5 10 3/uL Lymphocytes Absolute Auto 1.4 1.2-3.8 10 3/uL Monocytes Absolute Auto 0.5 0.3-0.8 10 3/uL Eosinophils Absolute Auto 0.3 0.0-0.7 10 3/uL Basophils Absolute Auto 0.0 0.0-0.1 10 3/uL Immature Granulocytes Abs Auto 0.02 0.00-0.03 10 3/uL Performing Lab: see note ML - [facility] LB PROF CHEM 8 (BAS METB) Reviewed date:05/24/2024 11:12:15 AM Interpretation: Performing Lab: Notes/Report: [facility] , Sodium 145 136-145 mmol/L Potassium 4.2 3.5-5.1 mmol/L Chloride 109 98-107 mmol/L Carbon Dioxide 25.6 21.0-32.0 mmol/L Anion Gap 14.6 Glucose 116 74-106 mg/dL Blood Urea Nitrogen 37.0 7.0-18.0 mg/dL Creatinine 1.35 0.70-1.30 mg/dL Estimated GFR ( Aura >60 >=60 Estimated GFR (Non- Sandy 53 >=60 BUN Creatinine Ratio 27.4 Calcium 8.5 8.5-10.1 mg/dL Performing Lab: see note ML - [facility] LB CBC AUTO DIFF Reviewed date:05/24/2024 11:12:15 AM Interpretation: Performing Lab: Notes/Report: [facility] , White Blood Count 10.3 4.0-11.0 10 3/uL Red Blood Count 3.47 4.70-6.10 10 6/uL Hemoglobin 10.8 14.0-18.0 g/dL Hematocrit 33.5 42.0-54.0 % Mean Corpuscular Volume 96.5 80.0-94.0 fL Mean Corpuscular Hemoglobin 31.1 25.9-34.0 pg Mean Corpuscular HGB Conc 32.2 29.9-35.2 g/dL Red Cell Distribution Width 14.0 11.0-15.0 % Platelet Count 174 150-450 10 3/uL Mean Platelet Volume 12.4 9.5-13.5 fL Neutrophils Percent Auto 76.2 43.0-75.0 % Lymphocytes Percent Auto 14.7 20.5-60.0 % Monocytes Percent Auto 6.7 1.7-12.0 % Eosinophils Percent Auto 1.8 0.9-7.0 % Basophils Percent Auto 0.3 0.2-2.0 % Immature Granulocytes Pct Auto 0.3 0.0-0.5 % Neutrophils Absolute Auto 7.9 1.4-6.5 10 3/uL Lymphocytes Absolute Auto 1.5 1.2-3.8 10 3/uL Monocytes Absolute Auto 0.7 0.3-0.8 10 3/uL Eosinophils Absolute Auto 0.2 0.0-0.7 10 3/uL Basophils Absolute Auto 0.0 0.0-0.1 10 3/uL Immature Granulocytes Abs Auto 0.03 0.00-0.03 10 3/uL Performing Lab: see note ML - [facility] LB LACTATE or LACTIC ACID Reviewed date:05/21/2024 09:35:25 PM Interpretation: Performing Lab: Notes/Report: [facility] , Lactate/Lactic Acid 1.7 0.4-2.0 mmol/L Performing Lab: see note - [facility] LB Troponin I High Sensitivity Reviewed date:05/21/2024 09:35:25 PM Interpretation: Performing Lab: Notes/Report: [facility] , Troponin I High Sensitivity 13.8 4.0-76.1 pg/mL CUT-OFF POINTS HAVE BEEN ESTABLISHED BASED ON THE FOURTH UNIVERSAL DEFINITION OF MYOCARDIAL INFARCTION. THE UPPER REFERENCE LIMIT (URL) OF TROPONIN, DEFINED THE 99TH PERCENTILE OF cTnI DISTRIBUTION IN A REFERENCE POPULATION, HAS BEEN CONFIRMED THE DECISION THRESHOLD FOR MO DIAGNOSIS. 99TH PERCENTILE = 76.2 PG/ML NOTE: HIGH-SENSITIVITY TROPONIN ASSAY IS NOT INTENDED TO BE USED IN ISOLATION BUT SHOULD BE INTERPRETED IN CONJUNCTION WITH OTHER DIAGNOSTIC AND CLINICAL INFORMATION. Performing Lab: see note ML - [facility] LB Blood Culture 2 Reviewed date:05/26/2024 06:25:46 PM Interpretation: Performing Lab: Notes/Report: [facility] , Blood Culture 2 See Below For Report Blood Culture 2 NG5D NO GROWTH AT 5 DAYS. Performing Lab: see note ML - [facility] LB Blood Culture 1 Reviewed date:05/26/2024 06:25:46 PM Interpretation: Performing Lab: Notes/Report: [facility] , Blood Culture 1 See Below For Report Blood Culture 1 NG5D NO GROWTH AT 5 DAYS. Performing Lab: see note ML - [facility] LB UA RANDOM W or MICROSCOPIC Reviewed date:05/21/2024 09:35:25 PM Interpretation: Performing Lab: Notes/Report: [facility] , Color Urine DK. YELLOW YELLOW Clarity Urine CLEAR CLEAR Specific [place] Urine >=1.030 1.005-1.025 pH Urine 6.0 5.0-9.0 Protein Urine TRACE NEG/TRACE mg/dL Glucose Urine UA NEGATIVE NEGATIVE mg/dL Bilirubin Urine MODERATE NEGATIVE Ketones Urine 40 NEGATIVE mg/dL Blood Urine NEGATIVE NEGATIVE Nitrite Urine NEGATIVE NEGATIVE Urobilinogen Urine 1.0 0.2-1.0 EU/dL Leukocyte Esterase Urine NEGATIVE NEGATIVE WBC Urine 2-5 NONE SEEN #/HPF RBC Urine 0-2 0-2 #/HPF Bacteria Urine TRACE NONE SEEN #/HPF Mucus Urine MODERATE NONE SEEN Squamous Epithelial Cell Urine FEW NONE/RARE #/LPF Urine Culture Indicated YES Performing Lab: see note - [facility] LB PROF CHEM 8 (BAS METB) Reviewed date:05/21/2024 09:35:25 PM Interpretation: Performing Lab: Notes/Report: [facility] , Sodium 142 136-145 mmol/L Potassium 4.4 3.5-5.1 mmol/L Chloride 106 98-107 mmol/L Carbon Dioxide 20.6 21.0-32.0 mmol/L Anion Gap 19.8 Glucose 191 74-106 mg/dL Blood Urea Nitrogen 41.0 7.0-18.0 mg/dL Creatinine 2.23 0.70-1.30 mg/dL Estimated GFR ( Aura 36 >=60 Estimated GFR (Non- Sandy 30 >=60 BUN Creatinine Ratio 18.4 Calcium 8.9 8.5-10.1 mg/dL Performing Lab: see note - [facility] LB LACTATE or LACTIC ACID Reviewed date:05/21/2024 09:35:25 PM Interpretation: Performing Lab: Notes/Report: [facility] , Lactate/Lactic Acid 4.5 0.4-2.0 mmol/L RESULT S CALLED TO DR. ROJO AT 1310 Performing Lab: see note - [facility] LB PROF CHEM 8 (BAS METB) Reviewed date:05/04/2024 06:36:31 PM Interpretation: Performing Lab: Notes/Report: [facility] , Sodium 145 136-145 mmol/L Potassium 3.8 3.5-5.1 mmol/L Chloride 111 98-107 mmol/L Carbon Dioxide 21.0 21.0-32.0 mmol/L Anion Gap 16.8 Glucose 78 74-106 mg/dL Blood Urea Nitrogen 24.0 7.0-18.0 mg/dL Creatinine 1.26 0.70-1.30 mg/dL Estimated GFR ( Aura >60 >=60 Estimated GFR (Non- Sandy 57 >=60 BUN Creatinine Ratio 19.0 Calcium 8.7 8.5-10.1 mg/dL Performing Lab: see note ML - [facility] LB CBC AUTO DIFF Reviewed date:05/04/2024 06:36:31 PM Interpretation: Performing Lab: Notes/Report: [facility] , White Blood Count 8.3 4.0-11.0 10 3/uL Red Blood Count 4.37 4.70-6.10 10 6/uL Hemoglobin 13.4 14.0-18.0 g/dL Hematocrit 41.6 42.0-54.0 % Mean Corpuscular Volume 95.2 80.0-94.0 fL Mean Corpuscular Hemoglobin 30.7 25.9-34.0 pg Mean Corpuscular HGB Conc 32.2 29.9-35.2 g/dL Red Cell Distribution Width 13.8 11.0-15.0 % Platelet Count 186 150-450 10 3/uL Mean Platelet Volume 11.9 9.5-13.5 fL Neutrophils Percent Auto 60.7 43.0-75.0 % Lymphocytes Percent Auto 28.9 20.5-60.0 % Monocytes Percent Auto 6.9 1.7-12.0 % Eosinophils Percent Auto 2.7 0.9-7.0 % Basophils Percent Auto 0.6 0.2-2.0 % Immature Granulocytes Pct Auto 0.2 0.0-0.5 % Neutrophils Absolute Auto 5.0 1.4-6.5 10 3/uL Lymphocytes Absolute Auto 2.4 1.2-3.8 10 3/uL Monocytes Absolute Auto 0.6 0.3-0.8 10 3/uL Eosinophils Absolute Auto 0.2 0.0-0.7 10 3/uL Basophils Absolute Auto 0.1 0.0-0.1 10 3/uL Immature Granulocytes Abs Auto 0.02 0.00-0.03 10 3/uL Performing Lab: see note ML - [facility] LB Troponin I High Sensitivity Reviewed date:05/03/2024 10:07:42 PM Interpretation: Performing Lab: Notes/Report: [facility] , Troponin I High Sensitivity 7.0 4.0-76.1 pg/mL CUT-OFF POINTS HAVE BEEN ESTABLISHED BASED ON THE FOURTH UNIVERSAL DEFINITION OF MYOCARDIAL INFARCTION. THE UPPER REFERENCE LIMIT (URL) OF TROPONIN, DEFINED THE 99TH PERCENTILE OF cTnI DISTRIBUTION IN A REFERENCE POPULATION, HAS BEEN CONFIRMED THE DECISION THRESHOLD FOR MO DIAGNOSIS. 99TH PERCENTILE = 76.2 PG/ML NOTE: HIGH-SENSITIVITY TROPONIN ASSAY IS NOT INTENDED TO BE USED IN ISOLATION BUT SHOULD BE INTERPRETED IN CONJUNCTION WITH OTHER DIAGNOSTIC AND CLINICAL INFORMATION. Performing Lab: see note ML - [facility] LB LACTATE or LACTIC ACID Reviewed date:05/03/2024 10:07:42 PM Interpretation: Performing Lab: Notes/Report: [facility] , Lactate/Lactic Acid 1.3 0.4-2.0 mmol/L Performing Lab: see note ML - [facility] LB Venous Blood Gas Reviewed date:05/03/2024 10:07:42 PM Interpretation: Performing Lab: Notes/Report: [facility] , pH VBG 7.270 7.330-7.430 PCO2 VBG 45.2 40.0-52.0 mmHg Performing Lab: see note ML - [facility] LB Troponin I High Sensitivity Reviewed date:05/03/2024 10:07:42 PM Interpretation: Performing Lab: Notes/Report: [facility] , Troponin I High Sensitivity 6.6 4.0-76.1 pg/mL CUT-OFF POINTS HAVE BEEN ESTABLISHED BASED ON THE FOURTH UNIVERSAL DEFINITION OF MYOCARDIAL INFARCTION. THE UPPER REFERENCE LIMIT (URL) OF TROPONIN, DEFINED THE 99TH PERCENTILE OF cTnI DISTRIBUTION IN A REFERENCE POPULATION, HAS BEEN CONFIRMED THE DECISION THRESHOLD FOR MO DIAGNOSIS. 99TH PERCENTILE = 76.2 PG/ML NOTE: HIGH-SENSITIVITY TROPONIN ASSAY IS NOT INTENDED TO BE USED IN ISOLATION BUT SHOULD BE INTERPRETED IN CONJUNCTION WITH OTHER DIAGNOSTIC AND CLINICAL INFORMATION. Performing Lab: see note ML - [facility] LB Blood Culture 2 Reviewed date:05/11/2024 11:55:58 AM Interpretation: Performing Lab: Notes/Report: [facility] , Blood Culture 2 See Below For Report Blood Culture 2 NG5D NO GROWTH AT 5 DAYS. Performing Lab: see note ML - [facility] LB Blood Culture 1 Reviewed date:05/11/2024 11:55:58 AM Interpretation: Performing Lab: Notes/Report: [facility] , Blood Culture 1 See Below For Report Blood Culture 1 NG5D NO GROWTH AT 5 DAYS. Performing Lab: see note ML - [facility] LB UA (CLEAN or CATCH) BOTTOM LIQUOR ATTENDANT or M ICRO IF IND. Reviewed date:05/03/2024 10:07:42 PM Interpretation: Performing Lab: Notes/Report: [facility] , Color Urine DK. YELLOW YELLOW Clarity Urine CLEAR CLEAR Specific [place] Urine >=1.030 1.005-1.025 pH Urine 5.5 5.0-9.0 Protein Urine TRACE NEG/TRACE mg/dL Glucose Urine UA NEGATIVE NEGATIVE mg/dL Bilirubin Urine MODERATE NEGATIVE Ketones Urine 15 NEGATIVE mg/dL Blood Urine NEGATIVE NEGATIVE Nitrite Urine NEGATIVE NEGATIVE Urobilinogen Urine 1.0 0.2-1.0 EU/dL Leukocyte Esterase Urine NEGATIVE NEGATIVE Urine Microscopic Indicated NO Performing Lab: see note ML - [facility] LB PROF 14(COMP METB) Reviewed date:05/03/2024 10:07:42 PM Interpretation: Performing Lab: Notes/Report: [facility] , Sodium 143 136-145 mmol/L Potassium 4.1 3.5-5.1 mmol/L Chloride 107 98-107 mmol/L Carbon Dioxide 22.9 21.0-32.0 mmol/L Anion Gap 17.2 Glucose 119 74-106 mg/dL Blood Urea Nitrogen 31.0 7.0-18.0 mg/dL Creatinine 2.16 0.70-1.30 mg/dL Estimated GFR ( Aura 37 >=60 Estimated GFR (Non- Asndy 31 >=60 BUN Creatinine Ratio 14.4 Calcium 9.2 8.5-10.1 mg/dL Bilirubin Total 0.5 0.2-1.0 mg/dL Aspartate Amino Transferase 18 15-37 U/L Alanine Aminotransferase 25 16-63 U/L Alkaline Phosphatase 93 46-116 U/L Total Protein 7.3 6.4-8.2 g/dL Albumin Level 3.2 3.4-5.0 g/dL Globulin 4.1 Albumin Globulin Ratio 0.8 Performing Lab: see note ML - [facility] LB LACTATE or LACTIC ACID Reviewed date:05/03/2024 10:07:42 PM Interpretation: Performing Lab: Notes/Report: [facility] , Lactate/Lactic Acid 5.6 0.4-2.0 mmol/L RESULT S CALLED TO CAROLINE Ovalles Performing Lab: see note - [facility] LB CPK Reviewed date:05/06/2024 09:23:27 AM Interpretation: Performing Lab: Notes/Report: [facility] , Creatine Kinase 28 39-308 U/L Performing Lab: see note ML - [facility] LB CBC AUTO DIFF Reviewed date:05/03/2024 10:07:42 PM Interpretation: Performing Lab: Notes/Report: [facility] , White Blood Count 16.6 4.0-11.0 10 3/uL Red Blood Count 4.32 4.70-6.10 10 6/uL Hemoglobin 13.4 14.0-18.0 g/dL Hematocrit 40.7 42.0-54.0 % Mean Corpuscular Volume 94.2 80.0-94.0 fL Mean Corpuscular Hemoglobin 31.0 25.9-34.0 pg Mean Corpuscular HGB Conc 32.9 29.9-35.2 g/dL Red Cell Distribution Width 13.6 11.0-15.0 % Platelet Count 256 150-450 10 3/uL Mean Platelet Volume 12.7 9.5-13.5 fL Neutrophils Percent Auto 73.3 43.0-75.0 % Lymphocytes Percent Auto 18.6 20.5-60.0 % Monocytes Percent Auto 6.3 1.7-12.0 % Eosinophils Percent Auto 1.1 0.9-7.0 % Basophils Percent Auto 0.4 0.2-2.0 % Immature Granulocytes Pct Auto 0.3 0.0-0.5 % Neutrophils Absolute Auto 12.2 1.4-6.5 10 3/uL Lymphocytes Absolute Auto 3.1 1.2-3.8 10 3/uL Monocytes Absolute Auto 1.1 0.3-0.8 10 3/uL Eosinophils Absolute Auto 0.2 0.0-0.7 10 3/uL Basophils Absolute Auto 0.1 0.0-0.1 10 3/uL Immature Granulocytes Abs Auto 0.05 0.00-0.03 10 3/uL Performing Lab: see note ML - [facility] LB BNP Reviewed date:05/03/2024 10:07:42 PM Interpretation: Performing Lab: Notes/Report: [facility] , NT Pro B Type Natriuretic Pept 167.0 <=900.0 pg/mL Performing Lab: see note ML - [facility] LB MR head/brain wo con Reviewed date:04/30/2024 08:56:56 PM Interpretation: Performing Lab: Notes/Report: Source Facility: [place] [address] Magnetic Resonance Report Signed Patient: TAYLOR MCCLELLAN MR#: [id number] : 1955 Acct:[id number] Age/Sex: 68 / M ADM Date: 04/29/24 Loc: MS 201-[address]: Norbert Jiang M.D. Ordering Physician: Soraya John NP Date of Service: 04/30/24 Procedure(s): MR head/brain wo con Accession Number(s): [id number] cc: Soraya John NP; Norbert Jiang M.D. The [place] [id number] Patient Name: TAYLOR MCCLELLAN MRN: [id number] date: 1955 Sex: M Assigned Patient Location: MS Current Patient Location: MS Accession/Order Number: [id number] Exam Date: 04/30/2024 11:45 Report Date: 04/30/2024 12:47 At the request of: SORAYA JOHN Procedure: MR head/brain wo con EXAM: MR head/brain wo con CLINICAL INDICATION: TIA, Right-sided weakness COMPARISON: CT head and CTA head/neck 04/29/2024. TECHNIQUE/PROTOCOL: Standard noncontrast protocol brain MRI performed (Sagittal T1 with axial T1, T2, GRE, FLAIR, and diffusion-weighted imaging). FINDINGS: No restricted diffusion, extra-axial fluid collection, hydrocephalus, midline shift, or other mass effect. Intracranial flow voids are maintained. Faint patchy hyperintense T2/FLAIR periventricular and subcortical foci are likely on the basis of chronic microvascular angiopathic changes. Moderate symmetric global volume loss with bilateral frontal lobe predominance. Commensurate ventricular system caliber prominence. Old bilateral basal ganglia lacunar infarcts. Normal marrow signal. No acute soft tissue abnormalities. Small trichilemmal cyst in the superior left frontal scalp. Paranasal sinuses are well-aerated. Scant bilateral mastoid effusions. MR/MR head/brain wo con IMPRESSION: No acute intracranial process or recent infarction. Electronically authenticated by: JJ DIEZ Date: 04/30/2024 12:47 Dictated By: Jj Diez M.D. Signed By: 04/30/24 1249 DD/ 1247 TD/TT: Newsagent: [place] [address] Magnetic Resonance Report Signed Patient: PEDRO LUIS MCCLELLAN PH MR#: [id number] : 1955 Acct:[id number] Age/Sex: 68 / M ADM Date: 04/29/24 Loc: MS 201-[address]: Dixie Jiang M.D. Ordering Physician: Soraya John NP Date of Service: 04/30/24 Procedure(s): MR head/brain wo con Accession Number(s): [id number] cc: Soraya John NP; Norbert Jiang M.D. [place] [address] Patient Name: TAYLOR MCCLELLAN MRN: [id number] date: 1955 Sex: M Assigned Patient Location: MS Current Patient Loca tion: MS Accession/Order Numb er: [id number] Exam Date: 04/30/2024 11:45 Report Date: 04/30/2024 12:47 At the request of: SORAYA JOHN Procedure: MR head/b rain wo con EXAM: MR head/brain wo con CLINICAL INDICATION: TIA, Right-sided weakness COMPARISON: CT head and CTA head/neck 04/29/2024. TECHNIQUE/PROTOCOL: Standard noncontrast protocol brain MRI performed (Sagittal T1 with axial T1, T2 , GRE, FLAIR, and diffusion-weighted imaging). FINDINGS: No restricted diffus ion, extra-axial fluid collection, hydrocephalus, midline shift, or other mass effect. Intracranial flow voids are maintained. Faint patchy hyperintense T2/FLAIR periventricular and subcortical foci are likely on the basis of chronic microvascular angiopathic changes. Moderate symmetric global volume loss w ith bilateral frontal lobe predominance. Commensurate ventricular system caliber prominence. Old bilateral basal ganglia lacunar infarcts. Normal marrow signal . No acute soft tissue abnormalities. Small trichilemmal cyst in the superior left frontal scalp. Paranasal sinuses are well-aerated. Scant bilateral mast oid effusions. M R/MR head/brain wo con IMPRESSION: No acute intracrania l process or recent infarction. Electronically authenticated by: JJ DIEZ Date: 04/30/2024 12:47 Dictated By: Domo Diez M.D. Signed By: 04/30/24 1249 DD/ 1247 TD/TT: Newsagent: CBC no Diff (Hemogram) Reviewed date:04/30/2024 08:56:56 PM Interpretation: Performing Lab: Notes/Report: [facility] , White Blood Count 10.0 4.0-11.0 10 3/uL Red Blood Count 4.53 4.70-6.10 10 6/uL Hemoglobin 13.7 14.0-18.0 g/dL Hematocrit 42.0 42.0-54.0 % Mean Corpuscular Volume 92.7 80.0-94.0 fL Mean Corpuscular Hemoglobin 30.2 25.9-34.0 pg Mean Corpuscular HGB Conc 32.6 29.9-35.2 g/dL Red Cell Distribution Width 13.8 11.0-15.0 % Platelet Count 205 150-450 10 3/uL Mean Platelet Volume 12.0 9.5-13.5 fL Performing Lab: see note ML - [facility] LB PROF CHEM 8 (BAS METB) Reviewed date:04/30/2024 08:56:56 PM Interpretation: Performing Lab: Notes/Report: [facility] , Sodium 141 136-145 mmol/L Potassium 4.2 3.5-5.1 mmol/L Chloride 107 98-107 mmol/L Carbon Dioxide 28.5 21.0-32.0 mmol/L Anion Gap 9.7 Glucose 88 74-106 mg/dL Blood Urea Nitrogen 15.0 7.0-18.0 mg/dL Creatinine 0.93 0.70-1.30 mg/dL Estimated GFR ( Aura >60 >=60 Estimated GFR (Non- Sandy >60 >=60 BUN Creatinine Ratio 16.1 Calcium 9.1 8.5-10.1 mg/dL Performing Lab: see note ML - [facility] LB XR chest 1V Reviewed date:05/21/2024 09:35:25 PM Interpretation: Performing Lab: Notes/Report: Source Facility: [place] [address] XRay Report Signed Patient: TAYLOR MCCLELLAN MR#: [id number] : 1955 Acct:[id number] Age/Sex: 68 / M ADM Date: 05/21/24 Loc: ER Attending Dr: Ordering Physician: Lenny Rojo M.D. Date of Service: 05/21/24 Procedure(s): XR chest 1V Accession Number(s): [id number] cc: Norbert Jiang M.D.; Lenny Rojo M.D. [place] [address] Patient Name: TAYLOR MCCLELLAN MRN: [id number] date: 1955 Sex: M Assigned Patient Location: ER Current Patient Location: ER Accession/Order Number: [id number] Exam Date: 05/21/2024 12:45 Report Date: 05/21/2024 13:03 At the request of: LENNY ROJO Procedure: XR chest 1V EXAMINATION: XR chest 1V HISTORY: weak COMPARISON: 05/03/2024 TECHNIQUE: AP portable FINDINGS: LUNGS: Right lung is clear. Mild left basilar infiltrate VASCULATURE: No increased pulmonary vasculature. PLEURA: No pneumothorax, effusion, or pleural thickening. CARDIAC: No cardiomegaly or cardiac silhouette abnormality. MEDIASTINUM: No visible mass or adenopathy. BONES: No fracture or visible bone lesion. OTHER: Negative. XR/XR chest 1V IMPRESSION: Mild left basilar infiltrate Electronically authenticated by: SARAI Miramontes: 05/21/2024 13:03 Dictated By: Sarai Kirkland M.D. Signed By: 05/21/241304 DD/ 02 TD/TT: Newsagent: [place] [address] XRay Report Signed Patient: PEDRO LUIS MCCLELLAN PH MR#: [id number] : 1955 Acct:[id number] Age/Sex: 68 / M ADM Date: 05/21/24 Loc: ER Attending Dr: Ordering Physician: Lenny Rojo M.D. Date of Service: 05/21/24 Procedure(s): XR chest 1V Accession Number(s): [id number] cc: Norbert Jiang M.D. ; Lenny Rojo M.D. [place] [address] Patient Name: TAYLOR MCCLELLAN MRN: [id number] date: 1955 Sex: M Assigned Patient Location: ER Current Patient Loca tion: ER Accession/Order Numb er: [id number] Exam Date: 05/21/2024 12:45 Report Date: 05/21/2024 13:03 At the request of: LENNY ROJO Procedure: XR chest 1V EXAMINATION: XR chest 1V HISTORY: weak COMPARISON: 05/03/2024 TECHNIQUE: AP portable FINDINGS: LUNGS: Right lung is clear. Mild left basilar infiltrate VASCULATURE: No incr eased pulmonary vasculature. PLEURA: No pneumotho rax, effusion, or pleural thickening. CARDIAC: No cardiome lizet or cardiac silhouette abnormality. MEDIASTINUM: No visi ble mass or adenopathy. BONES: No fracture o r visible bone lesion. OTHER: Negative. X R/XR chest 1V IMPRESSION: Mild left basilar infiltrate Electronically authenticated by: SARAI KIRKLAND Date: 05/21/2024 13:03 Dictated By: Hai Kirkland M.D. Signed By: 05/21/241304 DD/ 02 TD/TT: Newsagent: Troponin I High Sensitivity Reviewed date:04/29/2024 07:56:23 PM Interpretation: Performing Lab: Notes/Report: [facility] , Troponin I High Sensitivity 4.5 4.0-76.1 pg/mL CUT-OFF POINTS HAVE BEEN ESTABLISHED BASED ON THE FOURTH UNIVERSAL DEFINITION OF MYOCARDIAL INFARCTION. THE UPPER REFERENCE LIMIT (URL) OF TROPONIN, DEFINED THE 99TH PERCENTILE OF cTnI DISTRIBUTION IN A REFERENCE POPULATION, HAS BEEN CONFIRMED THE DECISION THRESHOLD FOR MO DIAGNOSIS. 99TH PERCENTILE = 76.2 PG/ML NOTE: HIGH-SENSITIVITY TROPONIN ASSAY IS NOT INTENDED TO BE USED IN ISOLATION BUT SHOULD BE INTERPRETED IN CONJUNCTION WITH OTHER DIAGNOSTIC AND CLINICAL INFORMATION. Performing Lab: see note ML - [facility] LB Prothrombin Time INR Reviewed date:04/29/2024 07:56:23 PM Interpretation: Performing Lab: Notes/Report: [facility] , Prothrombin Time 11.5 9.0-11.6 sec INR 1.09 DESIRED INR: 2.0-3.0 CONDITIONS NOT LISTED BELOW 2.5-3.5 FOR PROSTHETIC HEART VALVE REPLACEMENT 2.5-3.5 RECURRENT THROMBOSIS Performing Lab: see note ML - [facility] LB PROF 14(COMP METB) Reviewed date:04/29/2024 07:56:23 PM Interpretation: Performing Lab: Notes/Report: [facility] , Sodium 141 136-145 mmol/L Potassium 4.4 3.5-5.1 mmol/L Chloride 106 98-107 mmol/L Carbon Dioxide 29.7 21.0-32.0 mmol/L Anion Gap 9.7 Glucose 105 74-106 mg/dL Blood Urea Nitrogen 19.0 7.0-18.0 mg/dL Creatinine 1.16 0.70-1.30 mg/dL Estimated GFR ( Aura >60 >=60 Estimated GFR (Non- Sandy >60 >=60 BUN Creatinine Ratio 16.4 Calcium 8.7 8.5-10.1 mg/dL Bilirubin Total 0.4 0.2-1.0 mg/dL Aspartate Amino Transferase 14 15-37 U/L Alanine Aminotransferase 23 16-63 U/L Alkaline Phosphatase 87 46-116 U/L Total Protein 6.6 6.4-8.2 g/dL Albumin Level 3.1 3.4-5.0 g/dL Globulin 3.5 Albumin Globulin Ratio 0.9 Performing Lab: see note ML - [facility] LB PROF 14(COMP METB) Reviewed date:04/15/2024 08:22:29 PM Interpretation: Performing Lab: Notes/Report: [facility] , Sodium 143 136-145 mmol/L Potassium 4.0 3.5-5.1 mmol/L Chloride 107 98-107 mmol/L Carbon Dioxide 26.3 21.0-32.0 mmol/L Anion Gap 13.7 Glucose 89 74-106 mg/dL Blood Urea Nitrogen 15.0 7.0-18.0 mg/dL Creatinine 0.96 0.70-1.30 mg/dL Estimated GFR ( Aura >60 >=60 Estimated GFR (Non- Sandy >60 >=60 BUN Creatinine Ratio 15.6 Calcium 8.4 8.5-10.1 mg/dL Bilirubin Total 0.4 0.2-1.0 mg/dL Aspartate Amino Transferase 18 15-37 U/L Alanine Aminotransferase 23 16-63 U/L Alkaline Phosphatase 38 46-116 U/L Total Protein 6.5 6.4-8.2 g/dL Albumin Level 3.0 3.4-5.0 g/dL Globulin 3.5 Albumin Globulin Ratio 0.9 Performing Lab: see note ML - [facility] LB CBC AUTO DIFF Reviewed date:04/15/2024 08:22:29 PM Interpretation: Performing Lab: Notes/Report: [facility] , White Blood Count 8.6 4.0-11.0 10 3/uL Red Blood Count 4.24 4.70-6.10 10 6/uL Hemoglobin 13.0 14.0-18.0 g/dL Hematocrit 40.1 42.0-54.0 % Mean Corpuscular Volume 94.6 80.0-94.0 fL Mean Corpuscular Hemoglobin 30.7 25.9-34.0 pg Mean Corpuscular HGB Conc 32.4 29.9-35.2 g/dL Red Cell Distribution Width 13.8 11.0-15.0 % Platelet Count 181 150-450 10 3/uL Mean Platelet Volume 11.6 9.5-13.5 fL Neutrophils Percent Auto 64.1 43.0-75.0 % Lymphocytes Percent Auto 24.2 20.5-60.0 % Monocytes Percent Auto 7.1 1.7-12.0 % Eosinophils Percent Auto 3.7 0.9-7.0 % Basophils Percent Auto 0.7 0.2-2.0 % Immature Granulocytes Pct Auto 0.2 0.0-0.5 % Neutrophils Absolute Auto 5.5 1.4-6.5 10 3/uL Lymphocytes Absolute Auto 2.1 1.2-3.8 10 3/uL Monocytes Absolute Auto 0.6 0.3-0.8 10 3/uL Eosinophils Absolute Auto 0.3 0.0-0.7 10 3/uL Basophils Absolute Auto 0.1 0.0-0.1 10 3/uL Immature Granulocytes Abs Auto 0.02 0.00-0.03 10 3/uL Performing Lab: see note ML - [facility] LB CT cervical spine wo con Reviewed date:04/14/2024 03:14:05 PM Interpretation: Performing Lab: Notes/Report: Source Facility: [place] [address] CT Scan Report Signed Patient: TAYLOR MCCLELLAN MR#: [id number] : 1955 Acct:[id number] Age/Sex: 68 / M ADM Date: 04/14/24 Loc: ER Attending Dr: Ordering Physician: Jeet San Date of Service: 04/14/24 Procedure(s): CT cervical spine wo con Accession Number(s): [id number] cc: Norbert Jiang M.D. [place] [address] Patient Name: TAYLOR MCCLELLAN MRN: [id number] date: 1955 Sex: M Assigned Patient Location: ER Current Patient Location: ER Accession/Order Number: [id number] Exam Date: 04/14/2024 11:59 Report Date: 04/14/2024 12:58 At the request of: JEET SAN Procedure: CT cervical spine wo con EXAMINATION: CT cervical spine wo con HISTORY: fall, injury COMPARISON: No relevant comparison available. TECHNIQUE: Axial, Coronal, and Sagittal images were created without IV contrast. Dose reduction techniques were achieved by using automated exposure control and/or adjustment of mA and/or kV according to patient size and/or use of iterative reconstruction technique. FINDINGS: VERTEBRAL BODIES: Slight reversal normal lordotic curvature. No fracture or spondylolisthesis. FACET JOINTS: Multilevel mild degenerative changes. No disruption or abnormal widening. DISCS: Moderate disc space narrowing and posterior disc osteophyte complexes C3-4 and C4-5 resulting in moderate central canal and foraminal stenosis. CENTRAL CANAL: No evidence of hemorrhage. PARASPINAL AREA: Endovascular stent within right carotid bulb and proximal ICA. CT/CT cervical spine wo con IMPRESSION: 1. No appreciable acute abnormality. 2. Degenerative changes resulting in moderate or greater central canal and foraminal stenosis. Electronically authenticated by: LIAM ADORNO Date: 04/14/2024 12:58 Dictated By: Liam Adorno M.D. Signed By: 04/14/24 1300 DD/ 1258 TD/TT: Newsagent: [place] [address] CT Scan Report Signed Patient: PEDRO LUIS MCCLELLAN PH MR#: [id number] : 1955 Acct:[id number] Age/Sex: 68 / M ADM Date: 04/14/24 Loc: ER Attending Dr: Ordering Physician: Jeet San Date of Service: 04/14/24 Procedure(s): CT cer vical spine wo con Accession Number(s): [id number] cc: Norbert Jiang M.D. The [address] [address] Patient Name: TAYLOR MCCLELLAN MRN: [id number] date: 1955 Sex: M Assigned Patient Location: ER Current Patient Loca tion: ER Accession/Order Numb er: [id number] Exam Date: 04/14/2024 11:59 Report Date: 04/14/2024 12:58 At the request of: JEET SAN Procedure: CT cervic al spine wo con EXAMINATION: CT cerv ical spine wo con HISTORY: fall, injury COMPARISON: No relev ant comparison available. TECHNIQUE: Axial, Coronal, and Sagittal images were created without IV contrast. Dose reduc tion techniques were achieved by using automated exposure control and/or adjus tment of mA and/or kV according to patient size and/or use of iterative reconstruction technique. FINDINGS: VERTEBRAL BODIES: Sl ight reversal normal lordotic curvature. No fracture or spondylolisthesis. FACET JOINTS: Multil evel mild degenerative changes. No disruption or abnormal widening. DISCS: Moderate disc space narrowing and posterior disc osteophyte complexes C3-4 and C4-5 result ing in moderate central canal and foraminal stenosis. CENTRAL CANAL: No evidence of hemorrhage. PARASPINAL AREA: Endovascular stent within right carotid bulb and proximal ICA. C T/CT cervical spine wo con IMPRESSION: 1. No appreciable ac saúl abnormality. 2. Degenerative calloway ges resulting in moderate or greater central canal and foraminal stenosis. Electronically authenticated by: LIAM ADORNO Date: 04/14/2024 12:58 Dictated By: Liam Adorno M.D. Signed By: 04/14/24 1300 DD/ 1258 TD/TT: Newsagent: CT head/brain wo con Reviewed date:05/21/2024 09:35:25 PM Interpretation: Performing Lab: Notes/Report: Source Facility: [place] [address] CT Scan Report Signed Patient: TAYLOR MCCLELLAN MR#: [id number] : 1955 Acct:[id number] Age/Sex: 68 / M ADM Date: 05/21/24 Loc: ER Attending Dr: Ordering Physician: eLnny Rojo M.D. Date of Service: 05/21/24 Procedure(s): CT head/brain wo con Accession Number(s): [id number] cc: Norbert Jiang M.D. The [place] [address] Patient Name: TAYLOR MCCLELLAN MRN: [id number] date: 1955 Sex: M Assigned Patient Location: ER Current Patient Location: ED.MAIN Accession/Order Number: [id number] Exam Date: 05/21/2024 12:45 Report Date: 05/21/2024 13:33 At the request of: LENNY ROJO Procedure: CT head/brain wo con CT head without contrast, 05/21/2024. HISTORY: Fall. COMPARISON: CT head without contrast, 05/03/2024. TECHNIQUE: Noncontrast axial CT images obtained through the head. Reconstructions obtained in the sagittal and coronal planes. Dose reduction techniques were achieved by using automated exposure control and/or adjustment of mA and/or kV according to patient size and/or use of iterative reconstruction technique.. FINDINGS: The paranasal sinuses are clear. Mastoid air cells are clear. No skull fracture. Orbital contents unremarkable. No scalp hematoma. Nasopharynx and wired music operator spaces are normal. Chronic lacunar infarction in the right thalamus stable. Chronic lacunar infarction in the lentiform nucleus on the left stable. No extra-axial fluid collection. Mild brain atrophy stable. There is no mass effect. No hydrocephalus. No shift of midline. No acute intracranial hemorrhage. No mass. CT/CT head/brain wo con IMPRESSION: 1. Stable CT of the head. No acute intracranial findings. No intracranial hemorrhage. 2. 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 3. Stable brain atrophy. Electronically authenticated by: SOUTH ELIAS Date: 05/21/2024 13:33 Dictated By: [place] Elias M.D. Signed By: 05/21/24 1335 DD/ 1333 TD/TT: Newsagent: [place] [address] CT Scan Report Signed Patient: PEDRO LUIS MCCLELLAN PH MR#: [id number] : 1955 Acct:[id number] Age/Sex: 68 / M ADM Date: 05/21/24 Loc: ER Attending Dr: Ordering Physician: Lenny Rojo M.D. Date of Service: 05/21/24 Procedure(s): CT head/brain wo con Accession Number(s): [id number] cc: Norbert Jiang M.D. [address] [address] Patient Name: TAYLOR MCCLELLAN MRN: [facility]:[id number] date: 1955 Sex: M Assigned Patient Location: ER Current Patient Loca tion: ED.MAIN Accession/Order Numb er: [id number] Exam Date: 05/21/2024 12:45 Report Date: 05/21/2024 13:33 At the request of: LENNY ROJO Procedure: CT head/b rain wo con CT head without cont rast, 05/21/2024. HISTORY: Fall. COMPARISON: CT head without contrast, 05/03/2024. TECHNIQUE: Noncontra st axial CT images obtained through the head. Reconstructions obta ined in the sagittal and coronal planes. Dose reduction techniques were achi eved by using automated exposure control and/or adjustment of mA and/or kV acco rding to patient size and/or use of iterative reconstruction technique.. FINDINGS: The parana jg sinuses are clear. Mastoid air cells are clear. No skull fracture. Orbi neha contents unremarkable. No scalp hematoma. Nasopharynx and wired music operator spaces are normal. Chronic lacunar infarction in the right thalamus stable. Chronic lacunar infarction in the lentiform nucleus on the left stable. No extra-axial fluid collection. Mild bra in atrophy stable. There is no mass effect. No hydrocephalus. No sh ift of midline. No acute intracranial hemorrhage. No mass. C T/CT head/brain wo con IMPRESSION: 1. Stable CT of the head. No acute intracranial findings. No intracranial hemorrhage. 2. 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 3. Stable brain atrophy. Electronically authenticated by: SOUTH ELIAS Date: 05/21/2024 13:33 Dictated By: Calvin Elias M.D. Signed By: 05/21/24 1335 DD/ 1333 TD/TT: Newsagent: ECG 12 lead Reviewed date:05/24/2024 11:12:15 AM Interpretation: Performing Lab: Notes/Report: Source Facility: [place] [address] Electrocardiograph Report Signed Patient: TAYLOR MCCLELLAN MR#: [id number] : 1955 Acct:[id number] Age/Sex: 68 / M ADM Date: 05/21/24 Loc: [place] 216-[address]: Norbert Jiang M.D. Ordering Physician: Lenny Rojo M.D. 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 Signed By: 05/21/242226 DD/ 1226 TD/TT: Newsagent: [place] [address] Electrocardiograph Report Signed Patient: PEDRO LUIS MCCLELLAN PH MR#: [id number] : 1955 Acct:[id number] Age/Sex: 68 / M ADM Date: 05/21/24 Loc: MS 216-[address]: Dixie Jiang M.D. Ordering Physician: Lenny Rojo M.D. 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 Signed By: 05/21/242226 DD/ 1226 TD/TT: Newsagent: Prothrombin Time INR Reviewed date:04/14/2024 03:14:05 PM Interpretation: Performing Lab: Notes/Report: [facility] , Prothrombin Time 11.3 9.0-11.6 sec INR 1.07 DESIRED INR: 2.0-3.0 CONDITIONS NOT LISTED BELOW 2.5-3.5 FOR PROSTHETIC HEART VALVE REPLACEMENT 2.5-3.5 RECURRENT THROMBOSIS Performing Lab: see note ML - [facility] LB PTT Reviewed date:04/14/2024 03:14:05 PM Interpretation: Performing Lab: Notes/Report: [facility] , Partial Thromboplastin Time 29.0 22.3-36.2 sec Performing Lab: see note ML - [facility] LB PROF 14(COMP METB) Reviewed date:03/02/2024 10:00:05 PM Interpretation: Performing Lab: Notes/Report: [facility] , Sodium 145 136-145 mmol/L Potassium 4.6 3.5-5.1 mmol/L Chloride 107 98-107 mmol/L Carbon Dioxide 29.0 21.0-32.0 mmol/L Anion Gap 13.6 Glucose 120 74-106 mg/dL Blood Urea Nitrogen 16.0 7.0-18.0 mg/dL Creatinine 1.05 0.70-1.30 mg/dL Estimated GFR ( Aura >60 >=60 Estimated GFR (Non- Sandy >60 >=60 BUN Creatinine Ratio 15.2 Calcium 8.8 8.5-10.1 mg/dL Bilirubin Total 0.3 0.2-1.0 mg/dL Aspartate Amino Transferase 14 15-37 U/L Alanine Aminotransferase 20 16-63 U/L Alkaline Phosphatase 46 46-116 U/L Total Protein 7.3 6.4-8.2 g/dL Albumin Level 3.2 3.4-5.0 g/dL Globulin 4.1 Albumin Globulin Ratio 0.8 Performing Lab: see note ML - [facility] LB LIPID PROFILE Reviewed date:03/02/2024 10:00:05 PM Interpretation: Performing Lab: Notes/Report: [facility] , Triglycerides 84 <=150 mg/dL Cholesterol 147 <=200 mg/dL HDL Cholesterol 46 40-60 mg/dL > or =60 mg/dl - LOW CARDIOVASCULAR RISK <40 mg/dl - HIGH CARDIOVASCULAR RISK LDL Cholesterol Calculated 84.2 <100 mg/dl OPTIMAL 100-129 mg/dl NEAR OR ABOVE OPTIMAL 130-159 mg/dl BORDERLINE HIGH 160-189 mg/dl HIGH >190 mg/dl VERY HIGH VLDL CHOLESTEROL 16.8 Chol HDL Ratio 3.2 3.3 - 4.4 LOW RISK 4.4 - 7.1 AVERAGE RISK 7.1 - 11.0 MODERATE RISK >11.0 HIGH RISK Performing Lab: see note ML - [facility] LB GLYCOHEMOGLOBIN A1C Reviewed date:03/02/2024 10:00:05 PM Interpretation: Performing Lab: Notes/Report: [facility] , Glycohemoglobin A1C 5.8 4.5-6.2 % ADA RECOMMENDED LIMIT 4.0 - 6.0 ADA THERAPEUTIC TARGET < 7.0 ACTION SUGGESTED > 7.0 Estimated Average Glucose 120 Performing Lab: see note ML - [facility] LB CBC AUTO DIFF Reviewed date:03/02/2024 10:00:05 PM Interpretation: Performing Lab: Notes/Report: [facility] , White Blood Count 11.0 4.0-11.0 10 3/uL Red Blood Count 4.39 4.70-6.10 10 6/uL Hemoglobin 13.4 14.0-18.0 g/dL Hematocrit 41.4 42.0-54.0 % Mean Corpuscular Volume 94.3 80.0-94.0 fL Mean Corpuscular Hemoglobin 30.5 25.9-34.0 pg Mean Corpuscular HGB Conc 32.4 29.9-35.2 g/dL Red Cell Distribution Width 14.0 11.0-15.0 % Platelet Count 236 150-450 10 3/uL Mean Platelet Volume 11.4 9.5-13.5 fL Neutrophils Percent Auto 67.9 43.0-75.0 % Lymphocytes Percent Auto 22.4 20.5-60.0 % Monocytes Percent Auto 6.4 1.7-12.0 % Eosinophils Percent Auto 2.6 0.9-7.0 % Basophils Percent Auto 0.5 0.2-2.0 % Immature Granulocytes Pct Auto 0.2 0.0-0.5 % Neutrophils Absolute Auto 7.5 1.4-6.5 10 3/uL Lymphocytes Absolute Auto 2.5 1.2-3.8 10 3/uL Monocytes Absolute Auto 0.7 0.3-0.8 10 3/uL Eosinophils Absolute Auto 0.3 0.0-0.7 10 3/uL Basophils Absolute Auto 0.1 0.0-0.1 10 3/uL Immature Granulocytes Abs Auto 0.02 0.00-0.03 10 3/uL Performing Lab: see note ML - [facility] US carotid duplex BI Reviewed date:02/20/2024 08:13:30 PM Interpretation: Performing Lab: Notes/Report: Source Facility: [place] [address] Ultrasound Report Signed Patient: TAYLOR MCCLELLAN MR#: [id number] : 1955 Acct:[id number] Age/Sex: 68 / M ADM Date: 02/20/24 Loc: US Attending Dr: Dottie Tovar M.D. Ordering Physician: Dottie Tovar M.D. Date of Service: 02/20/24 Procedure(s): US carotid duplex BI Accession Number(s): [id number] cc: Dottie Tovar M.D.; Norbert Jiang M.D. [place] [address] Patient Name: TAYLOR MCCLELLAN MRN: [id number] date: 1955 Sex: M Assigned Patient Location: Current Patient Location: LAB Accession/Order Number: [id number] Exam Date: 02/20/2024 12:46 Report Date: 02/20/2024 15:49 At the request of: DOTTIE TOVAR Procedure: US carotid duplex BI EXAMINATION: US carotid duplex BI HISTORY: carotid stenosis; bilateral COMPARISON: No relevant comparison available. TECHNIQUE: Duplex Doppler ultrasound analysis of carotid and vertebral arteries. . Bilateral carotid arterial duplex examination was performed using B-mode, color flow and spectral analysis. Carotid stenosis is reported according to validated velocity parameters, similar to NASCET criteria. FINDINGS: RIGHT CAROTID ARTERY Moderate atherosclerotic plaque Subclavian: PSV: 85.9 cm/s cm/s EDV: 0.0 cm/s cm/s CCA: Prox: PSV: 54.8 cm/s cm/s EDV: 15.3 cm/s cm/s Mid: PSV: 46.9 cm/s cm/s EDV: 14.2 cm/s cm/s Distal: PSV: 50.5 cm/s cm/s EDV: 13.9 cm/s cm/s BULB: PSV: 96.7 cm/s cm/s EDV: 25.7 cm/s cm/s ICA: Prox: PSV: 90.3 cm/s cm/s EDV: 20.8 cm/s cm/s Mid: PSV: 63.6 cm/s cm/s EDV: 14.2 cm/s cm/s Distal: PSV: 65.8 cm/s cm/s EDV: 25.2 cm/s cm/s ECA: PSV: 267.6 cm/s cm/s EDV: 30.7 cm/s cm/s VERTEBRAL: PSV: 59.6 cm/s cm/s EDV: 12.8 cm/s cm/s, antegrade ICA/CCA ratio: PSV: 1.9 EDV: 1.9 LEFT CAROTID ARTERY moderate atherosclerotic plaque Subclavian: PSV: 82.2 cm/s cm/s EDV: 4.7 cm/s CCA: Prox: PSV: 120.9 cm/s cm/s EDV: 20.8 cm/s Mid: PSV: 91.9 cm/s cm/s EDV: 19.2 cm/s Distal: PSV: 90.2 cm/s cm/s EDV: 17.6 cm/s BULB: PSV: 67.6 cm/s cm/s EDV: 14.4 cm/s ICA: Prox: PSV: 78.9 cm/s cm/s EDV: 28.9 cm/s Mid: PSV: 85.4 cm/s cm/s EDV: 25.7 cm/s Distal: PSV: 83.8 cm/s cm/s EDV: 24.1 cm/s ECA: PSV: 93.5 cm/s cm/s EDV: 12.8 cm/s VERTEBRAL: PSV: 28.7 cm/s cm/s EDV: 7.8 cm/s antegrade ICA/CCA ratio: PSV: 0.9 EDV: 1.5 US/US carotid duplex BI IMPRESSION: Elevated flow velocity in the right external carotid artery 0-49% flow stenosis bilateral internal carotid arteries Spectral Doppler US Thresholds (Reference: Sly EG, et al. Radiology 2000; 214:247-252) Stenosis (%) PSV (cm/sec) VICA/VCCA 0-49 <150 <2.5 50-69 150-225 2.5-4.0 >70 >225 >4.0 Electronically authenticated by: SARAI KIRKLAND Date: 02/20/2024 15:49 Dictated By: Sarai Kirkland M.D. Signed By: 02/20/24 1552 DD/ 1549 TD/TT: Newsagent: [place] [address] Ultrasound Report Signed Patient: PEDRO LUIS MCCLELLAN PH MR#: [id number] : 1955 Acct:[id number] Age/Sex: 68 / M ADM Date: 02/20/24 Loc: US Attending Dr: Dottie Tovar M.D. Ordering Physician: Dottie Tovar M.D. Date of Service: 02/20/24 Procedure(s): US car otid duplex BI Accession Number(s): [id number] cc: Dottie Tovar; Norbert Jiang M.D. The [address] [address] Patient Name: TAYLOR MCCLELLAN MRN: [id number] date: 1955 Sex: M Assigned Patient Location: US Current Patient Loca tion: LAB Accession/Order Numb er: [id number] Exam Date: 02/20/2024 12:46 Report Date: 02/20/2024 15:49 At the request of: DOTTIE TOVAR Procedure: US caroti d duplex BI EXAMINATION: US griffin tid duplex BI HISTORY: carotid stenosis; bilateral COMPARISON: No relev ant comparison available. TECHNIQUE: Duplex Do ppler ultrasound analysis of carotid and vertebral arteries. . Bilatera l carotid arterial duplex examination was performed using B-mode, color flow a nd spectral analysis. Carotid stenosis is reported according to validat ed velocity parameters, similar to NASCET criteria. FINDINGS: RIGHT CAROTID ARTERY Moderate atheroscler otic plaque Subclavian: PSV: 85. 9 cm/s cm/s EDV: 0.0 cm/s cm/s CCA: Prox: PSV: 54.8 cm/s cm/s EDV: 15.3 cm/s cm/s Mid: PSV: 46.9 cm/s cm/s EDV: 14.2 cm/s cm/s Distal: PSV: 50.5 cm /s cm/s EDV: 13.9 cm/s cm/s BULB: PSV: 96.7 cm/s cm/s EDV: 25.7 cm/s cm/s ICA: Prox: PSV: 90.3 cm/s cm/s EDV: 20.8 cm/s cm/s Mid: PSV: 63.6 cm/s cm/s EDV: 14.2 cm/s cm/s Distal: PSV: 65.8 cm /s cm/s EDV: 25.2 cm/s cm/s ECA: PSV: 267.6 cm/s cm/s EDV: 30.7 cm/s cm/s VERTEBRAL: PSV: 59.6 cm/s cm/s EDV: 12.8 cm/s cm/s, antegrade ICA/CCA ratio: PSV: 1.9 EDV: 1.9 LEFT CAROTID ARTERY moderate atherosclerotic plaque Subclavian: PSV: 82. 2 cm/s cm/s EDV: 4.7 cm/s CCA: Prox: PSV: 120. 9 cm/s cm/s EDV: 20.8 cm/s Mid: PSV: 91.9 cm/s cm/s EDV: 19.2 cm/s Distal: PSV: 90.2 cm /s cm/s EDV: 17.6 cm/s BULB: PSV: 67.6 cm/s cm/s EDV: 14.4 cm/s ICA: Prox: PSV: 78.9 cm/s cm/s EDV: 28.9 cm/s Mid: PSV: 85.4 cm/s cm/s EDV: 25.7 cm/s Distal: PSV: 83.8 cm /s cm/s EDV: 24.1 cm/s ECA: PSV: 93.5 cm/s cm/s EDV: 12.8 cm/s VERTEBRAL: PSV: 28.7 cm/s cm/s EDV: 7.8 cm/s antegrade ICA/CCA ratio: PSV: 0.9 EDV: 1.5 U S/US carotid duplex BI IMPRESSION: Elevated flow veloci ty in the right external carotid artery 0-49% flow stenosis bilateral internal carotid arteries Spectral Doppler US Thresholds (Reference: Sly EG, et al. Radiology 2000; 214:247-252) Stenosis (%) PSV (cm /sec) VICA/VCCA 0-49 <150 <2.5 50-69 150-225 2.5-4.0 >70 >225 >4.0 Electronically authenticated by: SARAI KIRKLAND Date: 02/20/2024 15:49 Dictated By: Hai Kirkland M.D. Signed By: 02/20/24 1552 DD/ 1549 TD/TT: Newsagent: CBC AUTO DIFF Reviewed date:02/20/2024 08:13:30 PM Interpretation: Performing Lab: Notes/Report: [facility] , White Blood Count 9.1 4.0-11.0 10 3/uL Red Blood Count 4.41 4.70-6.10 10 6/uL Hemoglobin 13.4 14.0-18.0 g/dL Hematocrit 41.5 42.0-54.0 % Mean Corpuscular Volume 94.1 80.0-94.0 fL Mean Corpuscular Hemoglobin 30.4 25.9-34.0 pg Mean Corpuscular HGB Conc 32.3 29.9-35.2 g/dL Red Cell Distribution Width 13.8 11.0-15.0 % Platelet Count 182 150-450 10 3/uL Mean Platelet Volume 11.3 9.5-13.5 fL Neutrophils Percent Auto 55.5 43.0-75.0 % Lymphocytes Percent Auto 34.2 20.5-60.0 % Monocytes Percent Auto 5.3 1.7-12.0 % Eosinophils Percent Auto 4.2 0.9-7.0 % Basophils Percent Auto 0.7 0.2-2.0 % Immature Granulocytes Pct Auto 0.1 0.0-0.5 % Neutrophils Absolute Auto 5.0 1.4-6.5 10 3/uL Lymphocytes Absolute Auto 3.1 1.2-3.8 10 3/uL Monocytes Absolute Auto 0.5 0.3-0.8 10 3/uL Eosinophils Absolute Auto 0.4 0.0-0.7 10 3/uL Basophils Absolute Auto 0.1 0.0-0.1 10 3/uL Immature Granulocytes Abs Auto 0.01 0.00-0.03 10 3/uL Performing Lab: see note ML - [facility] LB ECG 12 lead Reviewed date:01/07/2025 12:28:21 PM Interpretation: Performing Lab: Notes/Report: Source Facility: [place] [address] Electrocardiograph Report Signed Patient: TAYLOR MCCLELLAN MR#: [id number] : 1955 Acct:[id number] Age/Sex: 69 / M ADM Date: 01/06/25 Loc: LAB Attending Dr: Josefa VELAZQUEZ Ordering Physician: Josefa Plaza Date of Service: 01/06/25 Procedure(s): ECG 12 lead Accession Number(s): [id number] cc: [facility] Test Date: 2025-01-06 Pat Name: TAYLOR MCCLELLAN Department: Room: - 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 Measurements Intervals [place] Rate: 92 P: 33 AK: 234 QRS: -63 QRSD: 148 T: 57 QT: 388 QTc: 480 Interpretive Statements SINUS RHYTHM WITH FIRST DEGREE AV BLOCK RIGHT BUNDLE BRANCH BLOCK [120+ ms QRS DURATION, UPRIGHT V1, 40+ ms S IN I/aVL/V4/V5/V6] LEFT ANTERIOR FASCICULAR BLOCK [QRS AXIS <= -45, QR IN I, RS IN II] Bifascicular block Compared to ECG 09/28/2024 21:00:15 No significant changes Electronically Signed On 01-06-2025 21:08:52 EDT by DORA MOFFETT M.D. 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 Measurements Intervals [place] Rate: 92 P: 33 AK: 234 QRS: -63 QRSD: 148 T: 57 QT: 388 QTc: 480 Interpretive Statements SINUS RHYTHM WITH FI RST DEGREE AV BLOCK RIGHT BUNDLE BRANCH BLOCK [120+ ms QRS DURATION, UPRIGHT V1, 40+ ms S IN I/aVL/V4/V5/V6] LEFT ANTERIOR FASCIC ULAR BLOCK [QRS AXIS <= -45, QR IN I, RS IN II] Bifascicular block Compared to ECG 09/28/2024 21:00:15 No significant changes Electronically Beena d On 01-06-2025 21:08:52 EDT by DORA MOFFETT M.D. Dictated By: DORA MOFFETT Signed By: 01/06/25210801/06/252108 DD/ 14 TD/TT: Newsagent: Prothrombin Time INR Reviewed date:01/06/2025 04:55:26 PM Interpretation: Performing Lab: Notes/Report: [facility] , Prothrombin Time 10.9 9.0-11.6 sec INR 1.03 DESIRED INR: 2.0-3.0 CONDITIONS NOT LISTED BELOW 2.5-3.5 FOR PROSTHETIC HEART VALVE REPLACEMENT 2.5-3.5 RECURRENT THROMBOSIS Performing Lab: see note ML - [facility] LB PTT Reviewed date:01/06/2025 04:55:26 PM Interpretation: Performing Lab: Notes/Report: [facility] , Partial Thromboplastin Time 27.8 22.3-36.2 sec Performing Lab: see note ML - [facility] LB CBC AUTO DIFF Reviewed date:01/06/2025 04:55:26 PM Interpretation: Performing Lab: Notes/Report: [facility] , White Blood Count 11.0 4.0-11.0 10 3/uL Red Blood Count 4.26 4.70-6.10 10 6/uL Hemoglobin 13.3 14.0-18.0 g/dL Hematocrit 38.5 42.0-54.0 % Mean Corpuscular Volume 90.4 80.0-94.0 fL Mean Corpuscular Hemoglobin 31.2 25.9-34.0 pg Mean Corpuscular HGB Conc 34.5 29.9-35.2 g/dL Red Cell Distribution Width 13.5 11.0-15.0 % Platelet Count 240 150-450 10 3/uL Mean Platelet Volume 11.3 9.5-13.5 fL Neutrophils Percent Auto 64.9 43.0-75.0 % Lymphocytes Percent Auto 25.2 20.5-60.0 % Monocytes Percent Auto 7.6 1.7-12.0 % Eosinophils Percent Auto 1.5 0.9-7.0 % Basophils Percent Auto 0.5 0.2-2.0 % Immature Granulocytes Pct Auto 0.3 0.0-0.5 % Neutrophils Absolute Auto 7.2 1.4-6.5 10 3/uL Lymphocytes Absolute Auto 2.8 1.2-3.8 10 3/uL Monocytes Absolute Auto 0.8 0.3-0.8 10 3/uL Eosinophils Absolute Auto 0.2 0.0-0.7 10 3/uL Basophils Absolute Auto 0.1 0.0-0.1 10 3/uL Immature Granulocytes Abs Auto 0.03 0.00-0.03 10 3/uL Performing Lab: see note ML - [facility] LB Reason For Referral Reason NAKIA PLEASE :) Diagnosis 1 Abnormal stress test (R94.39) Referral Organization [facility] [place] Referring Provider First Name NORBERT Referring Provider Last Name GAIL Referring Provider Speciality [facility] timothy Referred Provider [facility] Cardiology, [facility] Referred Provider Specialty Cardiology Referral Priority Routine Diagnosis 1 Muscle weakness (M62 .81) Referral Organization [facility] Referring Provider First Name Nathaniel Referring Provider Last Name Gail Referring Provider Speciality [facility] timothy Referred Provider Specialty Occupational Therapy General Notes Valorie Guerra 06/16/2024 11:19:50 AM >Orders sent over to [facility]- per note by Eliana Referral Priority Routine Medications Medication SIG (Take, Route, Frequency, Duration) Notes Start Date End Date Status Atorvastatin Calcium 80 MG 1 tablet Oral ly Once a day for 90 days Active Nicotine 21 MG/24HR APPLY 1 PATCH TO SKI N BY TRANSDERMAL ROUTE ONCE A DAY for 28 Active Depakote 500 MG 1 tablet Orally bid for 90 days 11/19/2023 Active Pepcid 40 MG 1 tablet Orally Once a day for 90 days 11/19/2023 Active Candesartan Cilexetil 8 MG 1 tablet Oral ly Once a day for 30 days Active Primidone 50 MG 1 tablet Orally Once a day for 30 days 04/09/2024 Active Docusate Sodium 100 MG 1 capsule as need ed Orally BID Active Clopidogrel Bisulfate 75 MG TAKE 1 TABLE T BY MOUTH ONCE DAILY for 90 Active Mirtazapine 45 MG TAKE 1 TABLET BY SHIRIN TH AT BEDTIME for 90 Active Aspirin 81 MG 1 tablet Orally Once a day for 90 days Active Multivitamin - 1 tablet Orally Once a day Active Cyclobenzaprine HCl 10 MG 1 tablet Orall y tid for 90 days 11/19/2023 Active Nicotine 7 MG/24HR 1 patch to skin Transdermal Once a day for 30 days use with at 21 mg patch 06/11/2024 Active Gabapentin 600 mg TAKE ONE TABLET BY M OUTH FOUR TIMES A DAY FOR 30 DAYS for 30 Active Carvedilol 12.5 MG TAKE 1 TABLET BY TWICE DAILY WITH FOOD for 90 Active traMADol HCl 50 MG 1-2 tablet Orally QID- and PRNPRN for 30 days 1 QID with 1 extra QID PRN 05/05/2024 Active Tylenol Extra Strength 500 MG 2 tablets Orally TID Active Ezetimibe 10 MG 1 tablet Orally Once a day for 30 days Active Celecoxib 200 MG TAKE 1 CAPSULE BY MO H DAILY WITH FOOD for 90 Active Flomax 0.4 MG 1 capsule Orally Onc e a day for 30 days 11/19/2023 Active Social History Tobacco Use: Social History Observation Description Date Details (start date - stop date) Former Smoker NA - NA Tobacco Use/Smoking Question Answer Notes Patient is a current smoker When did you start smoking? 01/04/2022 How often do you smoke cigarettes? every day How many cigarettes a day do you smoke? 31 or mo re How soon after you wake up d o you smoke your first cigarette? within 5 minutes Are you interested in quitting? Thinking about q uitting Alcohol Screen (Audit-C) Question Answer Notes Did you have a drink containing alcohol in the p ast year? No Points 0 Interpretation Negative Tobacco Control (Standard) Question Answer Notes Tobacco use: Former smoker AUDIT-C (Standard) Question Answer Notes Did you have a drink containing alcohol in the p ast year? No Points 0 Interpretation Negative Problems Problem Type SNOMED Code ICD Code Onset Dates Problem Status W/U Status Risk Notes Problem Tobacco user (793789926) Nicotine dependence, unspecified, uncomplicated (F17.200) Active confirmed Problem Anxiety disorder (062692349) Other specified anxiety disorders (F41.8) Active confirmed Problem Metabolic encephalopathy (03088206) Metabolic encephalopathy (G93.41) Active confirmed Problem Cerebral infarction due to carotid artery occlusion (296908757637040) Cerebral infarction due to unspecified occlusion or stenosis of unspecified cerebral artery (I63.50) Active confirmed Problem Pain of right shoulder region (finding) (6227822383) Pain in right shoulder (M25.511) Active confirmed Problem Rhabdomyolysis (87331514) Rhabdomyolysis (M62.82) Active confirmed Problem Pain in limb (10218650) Pain in right upper arm (M79.621) Active confirmed Problem 43912239 Unsteadiness on feet (R26.81) Active confirmed Problem 46577582 Other abnormalities of gait and mobility (R26.89) Active confirmed Problem Hyperlipidemia (16380712) Hyperlipidemia (E78.5) Active confirmed Problem Hypertension (83421080) Hypertension (I10) Active confirmed Problem Congestive heart failure (86603127) CHF (congestive heart failure) (I50.9) Active confirmed Problem Chronic kidney disease (289549877) Chronic kidney disease (N18.9) Active confirmed Problem Coronary artery disease (78573154) CAD (coronary artery disease) (I25.10) Active confirmed Problem Hypertension (66970248) HTN (hypertension) (I10) Active confirmed Problem Restless legs (87765542) Restless leg (G25.81) Active confirmed Problem History of coronary artery bypass grafting (693873727) Hx of CABG (Z95.1) Active confirmed Problem Hyperglycemia (26628880) Hyperglycemia (R73.9) Active confirmed Problem Urinary frequency (167860379) Urinary frequency (R35.0) Active confirmed Problem Carotid artery stenosis (94726490) Carotid artery stenosis (I65.29) Active confirmed Problem Essential hypertension (28353593) Benign essential HTN (I10) Active confirmed Problem Obstructive sleep apnea (89088452) Obstructive sleep apnea (G47.33) Active confirmed Problem Degenerative arthritis (708457538) Degenerative arthritis (M19.90) Active confirmed Problem Muscle weakness (41530300) Muscle weakness (M62.81) Active confirmed Problem Transient ischemic attack (162417968) TIA (transient ischemic attack) (G45.9) Active confirmed Problem Lumbar radiculopathy (191249626) Lumbar radiculopathy (M54.16) Active confirmed Problem Elevated blood pressure reading without diagnosis of hypertension (553941917) Borderline hypertension (R03.0) Active confirmed Problem Pulmonary nodule (315579179) Pulmonary nodule (R91.1) Active confirmed Problem Acute bronchitis (68614704) Acute bronchitis (J20.9) Active confirmed Problem Sciatica (21487024) Sciatica (M54.30) Active confirmed Problem Urinary tract infection (01650134) Urinary tract infection (N39.0) Active confirmed Problem Degenerative disc disease (91315186) DDD (degenerative disc disease), lumbar (M51.36) Active confirmed Problem History of coronary artery bypass grafting (726855244) History of coronary artery bypass graft (Z95.1) Active confirmed Problem Impingement syndrome of shoulder region (754075113) Impingement syndrome, shoulder, right (M75.41) Active confirmed Problem Abnormal gait (29635669) Abnormality of gait (R26.9) Active confirmed Problem Lung mass (704762364) Lung mass (R91.8) Active confirmed Problem Overweight (855756572) Over weight (E66.3) Active confirmed Problem Recurrent falls (331414045) Frequent falls (R29.6) Active confirmed Problem Iron deficiency anemia (93671910) Anemia, iron deficiency (D50.9) Active confirmed Problem Right foot drop (753628367616859) Foot drop, right (M21.371) Active confirmed Problem Benign prostatic hypertrophy with outflow obstruction (414456329) BPH with urinary obstruction (N40.1) Active confirmed Problem Foot-drop (7048217) Foot drop, left (M21.372) Active confirmed Problem Acute diarrhea (661306957) Acute diarrhea (R19.7) Active confirmed Problem Abnormal feces (418779185) Occult blood in stools (R19.5) Active confirmed Problem Altered mental status (436461838) Altered mental status (R41.82) Active confirmed Problem Recurrent major depression in remission (03501098) Depression, major, recurrent, in partial remission (F33.41) Active confirmed Problem General weakness (93198756) General weakness (R53.1) Active confirmed Problem Walking disability (170257102) Ambulatory dysfunction (R26.2) Active confirmed Problem At risk for falls (383534746) At risk for falls (Z91.81) Active confirmed Problem Leukocytosis (112034152) Elevated WBCs (D72.829) Active confirmed Problem Essential hypertension (43653427) BP (high blood pressure) (I10) Active confirmed Problem High cholesterol (42798389) High cholesterol (E78.00) Active confirmed Problem 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) Active confirmed Problem Pre-procedure evaluation check (046728979) Encounter for pre-operative examination (Z01.818) Active confirmed Problem History of carotid endarterectomy (479582016) H/O carotid endarterectomy (Z98.890) Active confirmed Problem Malnutrition of moderate degree (Gruber: 60% to less than 75% of standard weight) (15040207) Moderate protein malnutrition (E44.0) Active confirmed Problem Cerebral infarction (649014416) Other cerebral infarction (I63.89) Active confirmed Problem Type II diabetes mellitus without complication (700796822) Diabetes (E11.9) Active confirmed Problem Medication management contract agreement (Z02.89) Active confirmed Problem Disease caused by Severe acute respiratory syndrome coronavirus 2 (disorder) (797948245) COVID-19 virus infection (U07.1) Active confirmed Problem Low back pain (finding) (600551442) Other low back pain (M54.59) Active confirmed Problem Chronic low back pain (finding) (111622995) Chronic midline low back pain without sciatica (M54.50) Active confirmed Problem 542158770 Nontraumatic incomplete tear of rotator cuff, unspecified laterality (M75.110) Active confirmed Vital Signs Blood pressure diastolic 62 mm Hg 06/11/2024 Height 72 in 01/14/2025 Blood pressure systolic 130 mm Hg 06/11/2024 Weight 208.0 lbs 06/11/2024 BMI 28.21 kg/m2 06/11/2024 Encounters Encounter Location Date Provider Diagnosis [address] [address] 01/14/2025 Nathaniel Hoy Lumbar radiculopathy M54.16 and Pre-operative exam Z01.[address] [address] 04/28/2024 Nathaniel Hoy Cerebral infarction due to unspecified occlusion or stenosis of unspecified cerebral artery I63.50 ; Other low back pain M54.59 ; Obstructive sleep apnea G47.33 ; Frequent falls R29.6 and Borderline hypertension R03.[address] [address] 05/05/2024 Nathaniel Hoy Muscle weakness M62. 81 ; Other low back pain M54.59 ; Nontraumatic incomplete tear of rotator cuff, unspecified laterality M75.110 ; Rhabdomyolysis M62.82 and Hypertension I10 [facility] [address] [facility] [place] [address] 06/11/2024 Nathaniel Trivediy Nicotine abuse Z72.0 ; Cerebral infarction due to unspecified occlusion or stenosis of unspecified cerebral artery I63.50 ; Muscle weakness M62.81 ; Hypertension I10 and Degenerative arthritis M19.90 [facility] [address] [facility] [place] [address] 04/09/2024 Nathaniel Farooqy Muscle weakness M62. 81 ; History of coronary artery bypass graft Z95.1 ; Obstructive sleep apnea G47.33 ; Hypertension I10 and Chronic midline low back pain without sciatica M54.50 [facility] [address] [facility] [place] [address] 03/09/2024 Nathaniel Jiang Hyperglycemia R73.9 [facility] [address] [facility] [place] [address] 01/10/2025 Nathaniel Trivediy [facility] [address] [facility] [place] [address] 01/25/2025 Nathaniel Jiang [facility] [address] [facility] [place] [address] 01/26/2025 Nathaniel Jiang [facility] [address] [facility] [place] [address] 01/26/2025 Nathaniel Jiang [facility] [address] [facility] [place] [address] 06/11/2024 Nathaniel Jiang Muscle weakness M62. 81 [facility] [address] [facility] [address] 09/03/2024 Nathaniel Jiang [facility] [address] [facility] [place] [place] [address] 09/28/2024 Nathaniel jung [facility] [address] [facility] [place] [address] 10/08/2024 Nathaniel Jiang [facility] [address] [facility] [place] [address] 01/06/2025 Nathaniel Jiang [facility] [address] [place] [address] 01/07/2025 Nathaniel Farooqy [facility] [address] [place] [address] 04/20/2024 Nathaniel Hoy Hyperglycemia R73.9 [facility] [address] [place] [address] 04/28/2024 Nathaniel Gail [facility] [address] [place] [address] 04/30/2024 Nathaniel Farooqy [facility] [address] [place] [address] 05/04/2024 Nathaniel Hoy [facility] [address] [place] [address] 05/05/2024 Nathaniel Hoy Muscle weakness M62. 81 [facility] [address] [place] [address] 05/14/2024 Nathaniel Hoy Muscle weakness M62. 81 [facility] [address] [place] [address] 03/24/2024 Nathaniel Gail [facility] [address] [place] [address] 04/09/2024 Nathaniel Trivedijung [facility] [address] [place] [address] 04/15/2024 Nathaniel Hoy Hyperglycemia R73.9 [facility] [address] [place] [address] 04/15/2024 Nathaniel Farooqy [facility] [address] [place] [address] 04/16/2024 Nathaniel Trivediy [facility] [address] [place] [address] 04/17/2024 Nathaniel Hoy [facility] [address] [place] [address] 02/11/2024 NORBERT JIANG Hx of CABG Z95.1 and Other cerebral infarction I63.89 [facility] [address] [place] [address] 02/12/2024 NORBERT HOY Other cerebral infarction I63.89 [facility] [address] [place] [address] 02/12/2024 NORBERT HOY Abnormal stress test R94.39 [facility] [address] [place] [address] 02/20/2024 NORBERT HOY [facility] [address] [place] [address] 02/21/2024 NORBERT HOY [facility] [address] [place] [address] 03/05/2024 NORBERT HOY Hx of CABG Z95.1 Assessments Encounter Date Diagnosis (ICD Code) Assessment Notes Treatment Notes Treatment Clinical Notes Section Notes 03/09/2024 Hyperglycemia (ICD-10 - R73.9) needs accuchecks AC and HS Change stool softener to QOD 04/09/2024 Muscle weakness (ICD-10 - M62.81) 04/09/2024 History of coronary artery bypass graft (ICD-10 - Z95.1) 04/28/2024 Cerebral infarction due to unspecified occlusion or stenosis of unspecified cerebral artery (ICD-10 - I63.50) PT to work iwht balance 04/28/2024 Other low back pain (ICD-10 - M54.59) PT to work iwht sgtrength 05/05/2024 Muscle weakness (ICD-10 - M62.81) 05/05/2024 Other low back pain (ICD-10 - M54.59) 01/14/2025 Lumbar radiculopathy (ICD-10 - M54.16) If cleared by cardiology thenis cleared for OR - lujngs no current issues - no recent infections to preclude surgery 01/14/2025 Pre-operative exam (ICD-10 - Z01.818) 02/11/2024 Hx of CABG (ICD-10 - Z95.1) 02/12/2024 Other cerebral infarction (ICD-10 - I63.89) 02/12/2024 Abnormal stress test (ICD-10 - R94.39) 03/05/2024 Hx of CABG (ICD-10 - Z95.1) 04/15/2024 Hyperglycemia (ICD-10 - R73.9) 04/20/2024 Hyperglycemia (ICD-10 - R73.9) 05/05/2024 Muscle weakness (ICD-10 - M62.81) 05/14/2024 Muscle weakness (ICD-10 - M62.81) 06/11/2024 Muscle weakness (ICD-10 - M62.81) 06/11/2024 Nicotine abuse (ICD-10 - Z72.0) 06/11/2024 Cerebral infarction due to unspecified occlusion or stenosis of unspecified cerebral artery (ICD-10 - I63.50) 06/11/2024 Muscle weakness (ICD-10 - M62.81) 02/11/2024 Other cerebral infarction (ICD-10 - I63.89) 05/05/2024 Nontraumatic incomplete tear of rotator cuff, unspecified laterality (ICD-10 - M75.110) 04/28/2024 Obstructive sleep apnea (ICD-10 - G47.33) disyused machine use 04/09/2024 Obstructive sleep apnea (ICD-10 - G47.33) 04/09/2024 Hypertension (ICD-10 - I10) 04/28/2024 Frequent falls (ICD-10 - R29.6) see above 05/05/2024 Rhabdomyolysis (ICD-10 - M62.82) 06/11/2024 Hypertension (ICD-10 - I10) 06/11/2024 Degenerative arthritis (ICD-10 - M19.90) 05/05/2024 Hypertension (ICD-10 - I10) 04/28/2024 Borderline hypertension (ICD-10 - R03.0) monitor there 04/09/2024 Chronic midline low back pain without sciatica (ICD-10 - M54.50) Clered by Cardiology -= HGBA1D normal Cleared for OR 04/28/2024 Other Recommended to rest and use a heating pad on the area. Take NSAIDs for pain as needed Plan Of Treatment Pending Test Test Name Order Date Lexiscan Stress Nuclear Test 01/16/2024 CMP (COMPLETE METABOLIC PANEL) HEMOGLOBIN A1C (GLYCO) 07/25/2023 LIPID PANEL (CHOL/TRIG/HDL/LDL) 07/25/20 23 CBC WITH DIFF 07/25/2023 PSA, PROSTATE-SPECIFIC ANTIGEN 3 MRI LSPINE WO CON 09/11/2023 XR LSPINE 2_3 VIEWS 09/11/2023 THYROID PANEL (T4/TSH/FREE T3) 3 THYROID PANEL (T4/TSH/FREE T3) 3 Insurance Providers Payer Name Payer Address Payer Phone Subscriber Number Group Number Insured Name Patient Relationship to Insured Coverage Start Date Coverage End Date [place] [address] [place] [address] [id number] Taylor Mcclellan Self - patient is the insured 2 [facility] PPO [address] [place] [address] [id number] SilkeradhaPedro Luis lutzph Self - patient is the insured 2 [place] 2ND INS [address] [place], [place] [id number] Taylor Mcclellan Self - patient is the insured Medications Administered Medication Instructions Date of Administration Dosage Notes Kenalog-40 09/11/2023 120 mg 120 Ketorolac Tromethamine 09/11/2023 30 mg 30 Medical (General) History Medical History History ICD Code Other cerebral infarction I63.89 Cerebral infarction due to u nspecified occlusion or stenosis of unspecified cerebral artery I63.50 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 Urinary tract infection N39.0 Muscle weakness M62.81 Urinary frequency R35.0 Other specified anxiety disorders F41.8 Acute diarrhea R19.7 Other low back pain M54.59 Over weight E66.3 Pulmonary nodule R91.1 Lung mass R91.8 Acute bronchitis J20.9 H/O carotid endarterectomy Z98.890 History of coronary artery bypass graft Z95.1 Restless leg G25.81 Encounter for pre-operative examination Z01.818 Nontraumatic incomplete tear of rotator cuff, unspecified laterality M75.110 Medication management contract agreement Z02.89 Obstructive sleep apnea G47.33 COVID-19 virus infection U07.1 Frequent falls R29.6 Rhabdomyolysis M62.82 Impingement syndrome, shoulder, right M7 5.41 Degenerative arthritis M19.90 Pain in right shoulder M25.511 Hypertension I10 Pain in right upper arm M79.621 Hyperglycemia R73.9 Carotid artery stenosis I65.29 Hx of CABG Z95.1 Hyperlipidemia E78.5 Occult blood in stools R19.5 At risk for falls Z91.81 Abnormality of gait R26.9 Foot drop, right M21.371 Foot drop, left M21.372 Chronic kidney disease N18.9 Depression, major, recurrent, in partial remission F33.41 Nicotine dependence, unspecified, uncomp licated F17.200 BPH with urinary obstruction N40.1 Chronic midline low back pain without sc iatica M54.50 Metabolic encephalopathy G93.41 RIGHT BUNDLE BRANCH BLOCK [1 20+ ms QRS DURATION, UPRIGHT V1, 40+ ms S INI/aVL/V4/V5/V6] LEFT ANTERIOR FASCICULAR BLO CK [QRS AXIS < = -45, QR IN I, RS IN II]Bifascicular block Surgical History Surgery Date(Month/Year) Heart Surgery- stent placement Back Surgery coronary angiogram Hospitalization History Reason Date(Month/Year) Suicidal Ideation 10/2023 Fall and Chronic Pain 03/2023 [facility] for weakness then to rehab for stren gthening 11/2022 lumbar radiculopthy 04/2024
--- OUTSIDE RECORDS SUMMARY | 2025-01-31 20:27 | XMS_ITS | Encounter Summary ---
Author Organization [facility] tem Address [id number] [address] [place] [address] Care Team Providers Care Body Service Team Member Name Role Phone Norbert Jiang MD Primary Care Provider [phone] Reason for Visit * Reason Onset Date Comments Injection today 04/27/2022 Encounter Details Date Type Department Care Team (Late st Contact Info) Description 04/27/2022 Telephone [facility] - [facility] Management Clinic [address] [place] [id number] Ruth Ann Garcia RN Injection today Social History Tobacco Use Types Packs/Day Years [...] have Coronavirus / COVID-19? No / Unsure 04/27/2022 7:28 AM EDT documented as of this encounter Miscellaneous Notes * Telephone Encounter - Ruth Ann Garcia RN - 04/27/2022 12:02 PM EDT Patient had a bilateral L3/4, 5/1 MBB today at approximately 0840. He calls at 1050 am asking for someone to call him back. At Risk Specialist calls patient back, speaks with , Sherly. He got relief for approximately 20 minutes after his injection, he is no longer getting any relief from his pain. Patient was lying in bed, advisedpatient to get up and move around and give the injection some more time. Patient and spouse verbalize understanding. * Telephone Encounter - Kiya Irving RN - 04/27/2022 12:02 PM EDT calls again requesting pain relief medication. Asks if she can give him gabapentin prescribed to her because he used to take it in the past and the psych doctor is no longer seeing him thereforehasnt been prescribed. Informed her its very important that she not share her medication with patient. Their PCP wont prescribe gabapentin because patient sees pain management and needs to request from this office. Patient is taking Tylenol ES 500 mg TID and provides no relief. Informed them they can use OTC creams/gels, lidocaine patches- verbalized understanding. * Telephone Encounter - Nicol Ocampo PA-C - 04/27/2022 12:02 PM EDT Per med list he is taking gabapentin 600mg BID. Can we print an Oarrs * Telephone Encounter - Kiya Irving RN - 04/27/2022 12:02 PM EDT oarrs provided documented in this encounter Plan of Treatment Not on file documented as of this encounter Goals Goal Patient Goal Type Associated Problems Recent Progress Patient-Stated? Author safe discharge to home General Yes Garrison, Sandrita, RN Note: Evaluation of progress towards goal: safe transition from hospital to home with support of family and to return to outpatient therapy with [facility] in [place], [place] documented as of this encounter Visit Diagnoses Not on filedocumented in this encounter Care Teams Body Service Team Member Relationship Specialty Start Date End Date Norbert Jiang MD PCP - General Family Medicine 07/07/21 documented as of this encounter
--- OUTSIDE RECORDS SUMMARY | 2025-01-31 20:27 | XMS_ITS | Encounter Summary ---
Author Organization [facility] tem Address [id number] [address] [place] [address] Care Team Providers Care Personnel Training Officer Name Role Phone Norbert Jiang MD Primary Care Provider [phone] Encounter Details Date Type Department Care Team (Late st Contact Info) Description 05/25/2022 Orders Only [facility] - Pain Management [facility] [address] [place] [phone] Adelaide Du, LOADER OPERATOR/GROUND LEADER-HANDLE ROUNDER OPERATOR [id number] [place], [place] [id number] Social History Tobacco Use Types Packs/Day Years [...] AM EDT documented as of this encounter Plan of Treatment Not on file documented as of this encounter Goals Goal Patient Goal Type Associated Problems Recent Progress Patient-Stated? Author safe discharge to home General Yes Sandrita Franklin, RN Note: Evaluation of progress towards goal: safe transition from hospital to home with support of family and to return to outpatient therapy with [facility] in [place], [place] documented as of this encounter Procedures Procedure Name Priority Date/Time Associated Diagnosis Comments SARS COV 2 (COVID-19) STAT 04/23/2022 documented in this encounter Results * SARS COV 2 (COVID-19) (04/23/2022) NASOPHARYNGEAL Adelaide Du LOADER OPERATOR/GROUND LEADER-HANDLE ROUNDER OPERATOR MICROBIOLOGY - GENERAL OR DERABLES Final Result MANUALLY TRANSCRIBED RESULTS documented in this encounter Visit Diagnoses Not on filedocumented in this encounter Care Teams Personnel Training Officer Relationship Specialty Start Date End Date Norbert Jiang MD PCP - General Family Medicine 07/07/21 documented as of this encounter
--- OUTSIDE RECORDS SUMMARY | 2025-01-31 20:27 | XMS_ITS | Encounter Summary ---
Author Organization [facility] tem Address [id number] [address] [place] [address] Care Team Providers Care Supervisor Assembly Name Role Phone Norbert Jiang MD Primary Care Provider [phone] Reason for Visit * Reason Onset Date Comments Pain 05/04/2022 Encounter Details Date Type Department Care Team (Late st Contact Info) Description 05/04/2022 Telephone [facility] - Pain Management Clinic [address] [place] [phone] Ruth Ann Garcia RN Pain Social History Tobacco Use Types Packs/Day Years [...] Encounter - Ruth Ann Garcia RN - 05/04/2022 1:41 PM EDT Patient called with complaints of back pain asking for something for the pain. Informed patient that we do not have a provider here and asked him what he was taking for his pain and he states nothing. Encouraged patient to try OTC Ibuprofen and/or acetaminophen, alternate between ice/heat and OTC pain patches. PVU and will ask his when she gets home what they have. No further questions. Patient has a follow up on 05/23. documented in this encounter Plan of Treatment Not on file documented as of this encounter Goals Goal Patient Goal Type Associated Problems Recent Progress Patient-Stated? Author safe discharge to home General Yes Sandrita Franklin RN Note: Evaluation of progress towards goal: safe transition from hospital to home with support of family and to return to outpatient therapy with [facility] in [place], [place] documented as of this encounter Visit Diagnoses Not on filedocumented in this encounter Care Teams Supervisor Assembly Relationship Specialty Start Date End Date Norbert Jiang MD PCP - General Family Medicine 07/07/21 documented as of this encounter
--- OUTSIDE RECORDS SUMMARY | 2025-01-31 20:27 | XMS_ITS | Encounter Summary ---
[id number] [place] [address] Care Team Providers Care Activity Therapist Name Role Phone Norbert Jiang MD Primary Care Provider [phone] Reason for Referral * Consultation (Routine) - Closed Specialty Diagnoses / Procedures Referred By Arely shabazz Referred To Contact Hospice & Palliative Medicine / Oncology Diagnoses Chronic diastolic heart failure (CMS-HCC) Lumbar neuritis Lumbar spondylosis Metabolic encephalopathy Disorder of sacrum Multifactorial gait disorder Chronic low back pain with sciatica, sciatica laterality unspecified, unspecified back pain laterality Nicol Ocampo PA-C [address], [address] [place] [address] Phone: tel: fax: [facility] - Medical Oncology [address] [place] [address] Phone: tel:[phone] fax: Referral ID Status Reason Start Date Expiration Date V isits Requested Visits Authorized [id number] Closed Specialty Services Required 10/10/2022 10/10/2023 1 1 Encounter Details Date Type Department Care Team (Late st Contact Info) Description 10/10/2022 Telephone [facility] [address] [place] [id number] Eloina Arango RN Social History Tobacco Use Types Packs/Day Years [...] or suspected to have Coronavirus / COVID-19? Unable to assess 10/02/2022 2:23 PM EST documented as of this encounter Miscellaneous Notes * Telephone Encounter - Eloina Arango RN - 10/10/2022 8:17 AM EST Patient's consents to Palliative Care referral. Order pended. Please add diagnoses to order. * Telephone Encounter - Nicol Ocampo PA-C - 10/10/2022 8:17 AM EST Order signed. Patient can be cancelled for today. * Telephone Encounter - Eloina Arango RN - 10/10/2022 8:17 AM EST Appointment cancelled for today. * Telephone Encounter - Kiya Irving RN - 10/10/2022 8:17 AM EST Felicia from Palliative care called to notify this office that they do not see patients for back issues. Informed her that pt has failed pain management treatments, referral was to assist with pain control. She states palliative care usually sees cancer patients, not for back pain. Informed her provider will be updated. * Telephone Encounter - Nicol Ocampo PA-C - 10/10/2022 8:17 AM EST Let the patient know palliative care is unable to assist him and that we recommend a referral to [facility]. * Telephone Encounter - Kiya Irving RN - 10/10/2022 8:17 AM EST Called pt, no answer. LM to call back documented in this encounter Plan of Treatment Scheduled Referrals Name Type Priority Associated Diagnoses Order Schedule [facility] [place], [place] Outpatient Referral Routine Chronic diastolic heart failure (CMS-HCC) Lumbar neuritis Lumbar spondylosis Metabolic encephalopathy Disorder of sacrum Multifactorial gait disorder Chronic low back pain with sciatica, sciatica laterality unspecified, unspecified back pain laterality 1 Occurrences starting 10/10/2022 until 10/10/2023 documented as of this encounter Goals Goal Patient Goal Type Associated Problems Recent Progress Patient-Stated? Author safe discharge to home General Yes Sandrita Franklin, RN Note: Evaluation of progress towards goal: safe transition from hospital to home with support of family and to return to outpatient therapy with [facility] in [facility] General Yes Rossy Magallon LSW Note: Evaluation of progress towards goal: Discharge to [facility] pending acceptance documented as of this encounter Visit Diagnoses Diagnosis Chronic diastolic heart failure (CMS-HCC)- Primary Chronic diastolic heart failure Lumbar neuritis Lumbar spondylosis Lumbosacral spondylosis without myelopathy Metabolic encephalopathy Disorder of sacrum Disorders of sacrum Multifactorial gait disorder Abnormality of gait Chronic low back pain with sciatica, sciatica laterality unspecified, unspecified back pain laterality documented in this encounter Care Teams Activity Therapist Relationship Specialty Start Date End Date Norbert Jiang MD PCP - General Family Medicine 07/07/21 documented as of this encounter
--- OUTSIDE RECORDS SUMMARY | 2025-01-31 20:27 | XMS_ITS | Encounter Summary ---
Author Organization [facility] Address [address] [place] [address] Care Team Providers Care Gas Usage Meter Clerk Name Role Phone Ebenezer Hopkins MD Primary Care Provider Unavailabl e Encounter Details Date Type Department Care Team (Late st Contact Info) Description 11/03/2024 Abstract [facility] [address] [place] [phone] Unallocated, Noms Provider, [address] [place], [place] [id number] Social History Tobacco Use Types Packs/Day Years [...] on filedocumented in this encounter Care Teams Gas Usage Meter Clerk Relationship Specialty Start Date End Date Ebenezer Hopkins MD [address] [place] [address] PCP - General Psychiatry 04/26/23 documented as of this encounter
--- OUTSIDE RECORDS SUMMARY | 2025-01-31 20:27 | XMS_ITS | Encounter Summary ---
Author Organization [facility] Address [address] [place] [address] Care Team Providers Care Feed Blender Name Role Phone Ebenezer Hopkins MD Primary Care Provider Unavailabl e Encounter Details Date Type Department Care Team (Late st Contact Info) Description 06/01/2024 Abstract [facility] [address] [place] [phone] Unallocated, Noms Provider, [address] [place] [address] Social History Tobacco Use Types Packs/Day Years [...] on filedocumented in this encounter Care Teams Feed Blender Relationship Specialty Start Date End Date Ebenezer Hopkins MD [address] [place] [address] PCP - General Psychiatry 04/26/23 documented as of this encounter
--- OUTSIDE RECORDS SUMMARY | 2025-01-31 20:27 | XMS_ITS | Encounter Summary ---
Author Organization [facility] tem Address [id number] [address] [place] [address] Care Team Providers Care Roofer Name Role Phone Norbert Jiang MD Primary Care Provider [phone] Encounter Details Date Type Department Care Team (Late st Contact Info) Description 10/11/2022 Telephone [facility] - Radiation Oncology [address] [place] [address] Felicia Oneal Social History Tobacco Use Types Packs/Day Years [...] encounter Miscellaneous Notes * Telephone Encounter - Felicia Oneal - 10/11/2022 10:27 AM EST Spoke with patients spouse regarding referral received for our Palliative Clinic. stated patients pain is from back problems, I explained to spouse that we do not treat here for those symptoms. understood. I contacted referring physicians office and relayed information to them that we would not be able to accept patient. documented in this encounter Plan of Treatment Not on file documented as of this encounter Goals Goal Patient Goal Type Associated Problems Recent Progress Patient-Stated? Author safe discharge to home General Yes Sandrita Franklin, RN Note: Evaluation of progress towards goal: safe transition from hospital to home with support of family and to return to outpatient therapy with [facility] in [facility] General Yes Rossy Magallon, HUMAN SERVICES SUPERVISOR Note: Evaluation of progress towards goal: Discharge to [facility] pending acceptance documented as of this encounter Visit Diagnoses Not on filedocumented in this encounter Care Teams Roofer Relationship Specialty Start Date End Date Norbert Jiang MD PCP - General Family Medicine 07/07/21 documented as of this encounter
--- OUTSIDE RECORDS SUMMARY | 2025-01-31 20:27 | XMS_ITS | Clinical Summary ---
Author Organization [facility] Address [address] [place] [address] Care Team Providers Care Refractory Tile Helper Name Role Phone Ebenezer Hopkins MD Primary Care Provider Unavailabl e Medications losartan (Cozaar) 50 MG tabletIndications :Primary hypertension (CMS/HCC) TAKE ONE TABLET BY MOUTH DAILY 30 tablet 11 06/25/2024 Active Encounters Date Type Department Care Team Description 11/03/[address] [facility] [address] [place] [phone] Unallocated, Noms ProviderMD from Last 3 Months Social History Tobacco Use Types Packs/Day Years Used Date Smoking Tobacco: Never Assessed Sex and Gender Information Value Date Recorded Sex Assigned at Not on file Legal Sex Male 6:57 PM EDT Gender Identity Not on file Sexual Orientation Not on file Last Filed Vital Signs Vital Sign Reading Time Taken Comments Blood Pressure - - Pulse - - Temperature - - Respiratory Rate - - Oxygen Saturation - - Inhaled Oxygen Concentration - - Weight 99.8 kg (220 lb) 09/21/2020 12:00 PM EST Height 180.3 cm (5' 11 ) 09/21/2020 12:00 PM EST Body Mass Index 30.68 09/21/2020 12:00 PM EST Plan of Treatment Health Maintenance Due Date Last Done Comments CT Colonography 1956 Colonoscopy 1955 Colorectal Cancer Screening 1955 FIT-DNA 1955 FIT 1956 FOBT 1955 Sigmoidoscopy 1955 Pneumococcal Vaccine: 65+ Ye ars (2 of 2 - PPSV23) 11/29/2021 11/29/2020, 08/30/2020 Influenza Vaccine (Season Ended) 2025 06/23/2021, 11/29/2020, 08/30/2020, Additional history exists Insurance MEDICARE [facility] MEDICAID [place] Care Teams Refractory Tile Helper Relationship Specialty Start Date End Date Ebenezer Hopkins MD [address] [place] [address] PCP - General Psychiatry 04/26/23
--- OUTSIDE RECORDS SUMMARY | 2025-01-31 20:27 | XMS_ITS | Encounter Summary ---
Author Organization [facility] Address [id number] [address] [place] [address] Care Team Providers Care Project Scientist Name Role Phone Norbert Jiang MD Primary Care Provider [phone] Encounter Details Date Type Department Care Team (Late st Contact Info) Description 04/30/2024 Orders Only [facility] [address] [place] [id number] Transcribe, Orders Support User Pain (Primary Dx) [...] return to outpatient therapy with [facility] in [place] [place] [facility] General Yes Rossy Magallon, CAPONIZER Note: Evaluation of progress towards goal: Discharge to [facility] pending acceptance documented as of this encounter Results * CT angiogram head (04/29/2024 9:20 PM EDT) us Scanning Provider External IMG CT ORDERABLES Fin al Result * CT angiogram carotid (04/29/2024 9:15 PM EDT) us Scanning Provider External IMG CT ORDERABLES Fin al Result documented in this encounter Visit Diagnoses Diagnosis Pain- Primary Generalized pain documented in this encounter Care Teams Project Scientist Relationship Specialty Start Date End Date Norbert Jiang MD PCP - General Family Medicine 07/07/21 documented as of this encounter
--- OUTSIDE RECORDS SUMMARY | 2025-01-31 20:27 | XMS_ITS | Encounter Summary ---
Author Organization [facility] Address [address] [place] [address] Care Team Providers Care Combination Welder Apprentice Name Role Phone Ebenezer Hopkins MD Primary Care Provider Unavailabl e Encounter Details Date Type Department Care Team (Late st Contact Info) Description 11/11/2023 Abstract [facility] [address] [place] [phone] Vianey Zaldivar MD [address] [place] [address] Social History Tobacco Use Types Packs/Day Years [...] on filedocumented in this encounter Care Teams Combination Welder Apprentice Relationship Specialty Start Date End Date Ebenezer Hopkins MD [address] [place] [address] PCP - General Psychiatry 04/26/23 documented as of this encounter
--- OUTSIDE RECORDS SUMMARY | 2025-01-31 20:27 | XMS_ITS | Encounter Summary ---
Author Organization [facility] Address [address] [place] [address] Care Team Providers Care Insurance Sales Professional Name Role Phone Ebenezer Hopkins MD Primary Care Provider Unavailabl e Encounter Details Date Type Department Care Team (Late st Contact Info) Description 10/27/2024 Abstract [facility] [address] [place] [phone] Unallocated, Noms Provider, [address] [place] [address] Social History Tobacco Use Types Packs/Day Years [...] on filedocumented in this encounter Care Teams Insurance Sales Professional Relationship Specialty Start Date End Date Ebenezer Hopkins MD [address] [place] [address] PCP - General Psychiatry 04/26/23 documented as of this encounter
--- OUTSIDE RECORDS SUMMARY | 2025-01-31 20:27 | XMS_ITS | Encounter Summary ---
Author Organization [facility] Address [address] [place] [address] Care Team Providers Care Newspaper Distributor Supervisor Name Role Phone Ebenezer Hopikns MD Primary Care Provider Unavailabl e Reason for Visit * Reason Comments Med Refill Encounter Details Date Type Department Care Team (Late st Contact Info) Description 09/03/2024 Refill [facility] [address] [place] [phone] Vianey Zaldivar MD [address] [place] [address] Social History Tobacco Use Types Packs/Day Years Used Date Smoking Tobacco: Never Assessed Sex and Gender Information Value Date Recorded Sex Assigned at Not on file Legal Sex Male 6:57 PM EDT Gender Identity Not on file Sexual Orientation Not on file documented as of this encounter Miscellaneous Notes * Telephone Encounter - Maribell Borja LPN - 09/03/2024 11:31 AM EST Never a patient in this office. documented in this encounter Plan of Treatment Not on file documented as of this encounter Visit Diagnoses Not on filedocumented in this encounter Care Teams Newspaper Distributor Supervisor Relationship Specialty Start Date End Date Ebenezer Hopkins MD [address] [place] [address] PCP - General Psychiatry 04/26/23 documented as of this encounter
--- OUTSIDE RECORDS SUMMARY | 2025-01-31 20:27 | XMS_ITS | Encounter Summary ---
Author Organization [facility] Address [address] [place] [address] Care Team Providers Care Laundry Routeman Name Role Phone Ebenezer Hopkins MD Primary Care Provider Unavailabl e Encounter Details Date Type Department Care Team (Late st Contact Info) Description 05/27/2024 Abstract [facility] [address] [place] [phone] Unallocated, Noms Provider, [address] [place], [place] [phone] Social History Tobacco Use Types Packs/Day Years [...] on filedocumented in this encounter Care Teams Laundry Routeman Relationship Specialty Start Date End Date Ebenezer Hopkins MD [address] [place] [address] PCP - General Psychiatry 04/26/23 documented as of this encounter
--- OUTSIDE RECORDS SUMMARY | 2025-01-31 20:27 | XMS_ITS | Encounter Summary ---
Author Organization [facility] Address [address] [place] [address] Care Team Providers Care Miller Head Wet Process Name Role Phone Ebenezer Hopkins MD Primary Care Provider Unavailabl e Encounter Details Date Type Department Care Team (Late st Contact Info) Description 05/22/2023 Abstract [facility] [address] [place] [phone] Vianey Zaldivar MD [address] [place] [address] Social History Tobacco Use Types Packs/Day Years [...] on filedocumented in this encounter Care Teams Miller Head Wet Process Relationship Specialty Start Date End Date Ebenezer Hopkins MD [address] [place] [address] PCP - General Psychiatry 04/26/23 documented as of this encounter
--- NOTE | 2025-01-31 20:29 | PC.NURSE ---
right knee swelling, ice to site
[2025-01-31 21:32] VITALS: BP 166/81; PULSE 84; O2SAT 96
--- OUTSIDE RECORDS SUMMARY | 2025-02-02 11:00 | XMS_ITS ---
Author Name Auto Generated Organization OHIP Care Team Providers Care Social Science Analyst Name Role Phone ELPOOJA, EHAB Attending Unavailable ELTAHAWY, EHAB Attending Unavailable JONATHAN, GARRY Admitting Unavailable GARRY CASTILLO Attending Unavailable CASTILLO, GARRY Referring Unavailable ELTAHAWY, EHAB Attending Unavailable HOY, GENESIS M Primary Care Unavailable HOY, GENESIS M Referring Unavailable HOY, GENESIS M Primary Care Unavailable HOY, GENESIS M Referring Unavailable HOY, GENESIS M Primary Care Unavailable HOY, GENESIS M Referring Unavailable HOY, GENESIS M Primary Care Unavailable Hoy, Genesis M Attending Unavailable Hoy, Genesis M Admitting Unavailable BraydonHernandez Howard Attending Unavailable Genesis Jiang MD Primary Care Unavaila hammad Dennis PA-C, Steve Aldridge Consulting Maria Teresa mares PROBLEMS DATE TYPE CONDITION / CODE ATTENDING STATUS ALEISHA CALHOUN 01/12/2025 Admitting Diagnosis Follow-up / 398419() DOTTIE DE LEÓN [facility] 04/30/2024 Unknown Pain, unspecifie d / R52(ICD-10) NA Active [facility] 04/29/2024 Unknown Leslee ER Stro ke consult / UNK(Unknown) NA Active [facility] 02/18/2024 Admitting Diagnosis Abnormal result of other cardiovascular function study / R94.39(ICD-10) JONATHAN [facility] 02/14/2024 Admitting Diagnosis Atherosclerotic heart disease of [place] coronary artery without angina pectoris / I25.10(ICD-10) JONATHAN [facility] 02/14/2024 Admitting Diagnosis Occlusion and stenosis of unspecified carotid artery / I65.29(ICD-10) [facility] Admitting Diagnosis Essential (primary) hypertension / I10(ICD-10) JONATHAN [facility] 02/14/2024 Admitting Diagnosis Type 2 diabetes mellitus with other circulatory complications / E11.59(ICD-10) JONATHAN [facility] 02/14/2024 Admitting Diagnosis Mixed hyperlipidemia / E78.2(ICD-10) [facility] Admitting Diagnosis Presence of aortocoronary bypass graft / Z95.1(ICD-10) JONATHAN [facility] 02/14/2024 Admitting Diagnosis Occlusion and stenosis of right carotid artery / I65.21(ICD-10) GUY [facility] 02/17/2024 Admitting Diagnosis Encounter for other preprocedural examination / Z01.818(ICD-10) GUY [facility] PROCEDURES No Procedure Records Found RESULTS HISTORY AND PHYSICAL Observed: 11:48 AM Status: F Source: [facility] Chief Complaint Back pain History of Present Illness The patient is a 69-year-old male with complaints of constant low back pain that radiates into the right buttock and down the posterior leg to the knee with bzri-njr-bmbxefl in the foot. He is status post L5-S1 fusion done in 2008 in [place], [place]. Symptoms have been present on a chronic basis and progressively worsening. Current VAS score 8/10. Activities aggravate the pain include sitting, standing, walking, leaning forward, bending forward, rising from sitting and changing positions. Activities to help relieve the pain include lying on his side and lying on his back. Modifying factors include anti-inflammatories, muscle relaxers, narcotic pain medications, ice, TENS unit, physical therapy, injections, and a morphine pump. These modalities provided really no relief of his symptoms. No bowel or bladder incontinence. He is a current smoker. He had a prior back surgery in 2008 in [facility]. He has had 2 prior pain pumps that have been removed and a spinal cord stimulator that was implanted and removed PCP: Genesis Jiang MD Review of Systems Constitutional: No fevers, chills Respiratory: No shortness of breath, cough Cardiovascular: No chest pain, palpitations Gastrointestinal: No nausea, vomiting, incontinence Genitourinary: No dysuria or incontinence Musculoskeletal: (+) back pain, leg pain Neurologic: (+) numbness/tingling, no h/a Psychiatric: No anxiety, depression Physical Exam General: Alert and oriented, well nourished, no acute distress. Antalgic gait, using a walker to ambulate, slow with ambulation Head: Atraumatic, normocephalic Lungs: No respiratory distress. CTA bilaterally, no wheezes Heart: RRR, no murmur Abdomen: Soft, non-tender, non-distended, normal bowel sounds Musculoskeletal: Limited lumbar ROM. 5/5 muscle strength bilateral bilateral LE Skin: well-healed lumbar incision Neurologic: Awake, alert, and oriented X3, sensory intact bilateral LE Psychiatric: Cooperative, appropriate mood and affect Additional Vitals No qualifying data available. Assessment/Plan Assessment 1. Prior L4-5 posterior spinal fusion 2. L5-S1 degenerative disc disease 3. L4-S1 stenosis with radiculopathy Plan: L4-5 hardware removal, L4-S1 decompression and fusion with extension to S1, L5-S1 Transforaminal lumbar interbody fusion Problem List/Past Medical History Ongoing No qualifying data Historical No qualifying data Medications Inpatient No active inpatient medications Home No active home medications Allergies No active allergies Lab Results Microbiology - Current Encounter No qualifying data available. Electronically signed by Steve Dennis PA-C 01/29/25 11:[address] [facility], Hernandez Hayes PROGRESS Observed: 01/12/2025 2:45 PM Status: COMPLETED Source: [facility] Cardiology Clinic Note Chief Complaint: Patient here for surgery clearance. C/o stomach pressure. Had EKG and labs last week. He will be having orthopedic surgery with Dr. Oates. HPI: Rashi Alvarez is a 69 y.o. male With a history of extensive [...] paroxysmal nocturnal dyspnea, no lower extremity edema. Update 01/12/2025: Stable, no new cardiac symptoms. Is short of breath with minimal exertion which is unchanged. Lives in assisted living.Update 01/12/2025: Stable, no new cardiac symptoms. Is short of breath with minimal exertion which is unchanged. Lives in assisted living. Cardiology ROS: Review of Systems Musculoskeletal: Positive for arthritis and back pain. All other systems reviewed and are negative. Past Medical History He has a past medical history of Carotid artery stenosis, Coronary artery disease, PVD (peripheral vascular disease), and Stroke (CMS/HCC). Surgical History He has a past surgical history that includes Carotid stent; Cardiac catheterization; Coronary artery bypass graft; and Back surgery. Social History He reports that he has quit smoking. His smoking use included cigarettes. He has never used smokeless tobacco. He [...] mg) by mouth in the morning., Disp: 90 tablet, Rfl: 3 carvedilol (Coreg) 12.5 mg tablet, Take 12.5 mg by mouth with breakfast and with evening meal., Disp: , Rfl: celecoxib (CeleBREX) 200 mg capsule, Take 1 capsule by mouth in the morning., Disp: , Rfl: clopidogrel (Plavix) 75 mg [...] mg) by mouth in the morning., Disp: 90 tablet, Rfl: 3 famotidine (Pepcid) 40 mg tablet, Take by mouth in the morning., Disp: , Rfl: gabapentin (Neurontin) 600 mg tablet, Take by mouth in the morning., Disp: , Rfl: losartan (Cozaar) 50 mg tablet, Take 50 mg by mouth in the morning., Disp: [...] pain (8-10 pain score)., Disp: , Rfl: candesartan (Atacand) 8 mg tablet, Take 1 tablet (8 mg) by mouth in the morning., Disp: 90 tablet, Rfl: 3 Last Recorded Vitals BP 112/70 (BP Location: Left arm, Patient Position: Sitting, BP Cuff Size: Adult) Pulse 86 Resp 13 Ht 1.778 m (5' 10 ) Wt 102 kg (225 lb) SpO2 95% BMI 32.28 kg/m??? Physical Examination: GENERAL: alert and oriented [...] evaluated by my colleague Dr. De León[place] cardiology and recommended for coronary angiogram to [...] for LDL less than 50 mg/dL and [id number] less than 70 mg/dL 4) last hemoglobin [...] 7) outpatient follow-up with Dr. De León[place] cardiology at our [place] office, and Dr. Jiang for primary care [...] surgery Plan: The patient is at acceptable (moderate) risk to proceed with surgery with no further cardiovascular testing needed at this time; recommend strict heart rate and blood pressure control and avoidance of major fluid shifts Continue optimal medical therapy for coronary artery disease Including aspirin & Plavix (DAPT), high intensity statin therapy, a beta-joseph and an angiotensin receptor joseph started by Dr. Castillo If the patient is diabetic, he ought to be on an SGLT2 inhibitor or GLP-1 receptor agonist Return to clinic in 1 year or sooner should problems arise Dottie De León MD, MPH, FACC, [facility], [facility] Interventional Cardiology Pager Email: [email or web address] OFFICE VISIT Observed: 01/12/2025 2:45 PM Status: COMPLETED Source: [facility] [id number] Rashi Alvarez 03/1956 M Date Provider Department Center 01/12/2025 271-DOTTIE DE LEÓN [facility] Family History Problem Relation Age of Onset No Known Problems Mother No Known Problems Father Family Status - Relation Status Age at Mother Father Level of Service:44034 NC OFFICE/OUTPATIENT ESTABLISHED MOD MDM 30 MIN Reason for Visit and Comments: Follow-up [494090] - Needs cardiac clearance BLOOD CULTURE Observed: 09/09/2024 12:10 AM Status: F Source: [facility] Gram Stain Gram Positive Cocci in Clusters ORGANISM: Staphylococcus epidermidis (O:STAEPI) Aerobic CASSIE Charge (PCMIC38) SUSCEPTIBILITY ORGANISM: O:STAEPI ANTIBIOTIC INTERPRETATION CASSIE Azithromycin R >4 Ciprofloxacin R >2 Daptomycin S <0.5 Levofloxacin R >4 Linezolid S <1 Oxacillin R >2 Penicillin R >2 Tetracycline S <4 Trimethoprim/Sulfamethoxazole S Vancomycin S 1 S = SUSCEPTIBLE [...] RESISTANT TO ALL B-LACTAM DRUGS. PERFORMED BY: [place] [address] PATHOLOGIST EDUCATION DEPARTMENT CHAIR MARC VELEZ M.D. Performed By: #### CUBLD ### [address] OFFICE VISIT Observed: 03/26/2024 11:00 AM Status: COMPLETED Source: [facility] [id number] Rashi Alvarez 03/1956 [facility] Provider Department Center 03/26/2024 Formerly named [facility]-DOTTIE DE LEÓN [facility] Family History Problem Relation Age of Onset No Known Problems Mother No Known Problems Father Family Status - Relation Status Age at Mother Father Level of Service:06666 NC OFFICE/OUTPATIENT ESTABLISHED MOD MDM 30 MIN PROGRESS Observed: 03/26/2024 11:00 AM Status: COMPLETED Source: [facility] Cardiology Clinic Note Chief Complaint: New patient here to establish care. Ref from Dr. Jiang for abnormal stress test. Patient has hx of CABG at [facility] years ago. Stress test was ordered for pre-op clearance prior to back surgery. His son says he takes Plavix for TIA 3-4 years ago. Patient denies chest pain, SOB, palpitations, and lightheadedness/syncope. HPI: Rashi Alvarez is a 68 y.o. male With a [...] Coronary artery disease, PVD (peripheral vascular disease) ([facility]), and Stroke ([facility]). Surgical History He has a past [...] evaluated by my colleague Dr. [place]ón[place] cardi[place] and recommended for coronary angiogram to [...] for LDL less than 50 mg/dL and [id number] less than 70 mg/dL 4) last hemoglobin [...] 7) outpatient follow-up with Dr. [place]ón[place] cardiology at our [place] office, and Dr. Jiang for primary care [...] problems arise Dottie De León MD, MPH, [facility], [facility], [facility] Interventional Cardiology Pager Email: [email or web address] NURSNOTE Observed: 02/25/2024 1:01 PM Status: COMPLETED Source: [facility] RN educated pt on d/c instru ctions. RN encouraged pt to voice any questions or concerns. Pt verbalizes no questions or concerns at this time. Pt was wheeled off of unit with all of belongings. DEBBIE Observed: 02/25/2024 9:41 AM Status: COMPLETED Source: [facility] Patient: Rashi Alvarez Procedure Information Date/Time: 02/25/24 1030 Procedure: Coronary angiography (Left) - andrea Location: [facility] FLORICULTURE PROFESSOR 3 / [facility] (Cath) Providers: Garry Casitllo MD Clinical information reviewed: Allergies Meds Physical [...] Observed: 02/25/2024 9:41 AM Status: COMPLETED Source: [facility] H&P reviewed. The patient wa s examined and there are no changes to the H&P. ORDERS ONLY Observed: 02/20/2024 12:00 AM Status: COMPLETED Source: [facility] [id number] Rashi Alvarez 03/1956 M Date Provider Department Center 02/20/2024 ZANDRA TEJADA [facility] Family History Problem Relation Age of Onset No Known Problems Mother No Known Problems Father Family Status - Relation Status Age at Mother Father PROGRESS Observed: 02/17/2024 2:00 PM Status: COMPLETED Source: [facility] Cardiology Clinic Note Chief Complaint: New patient here to establish care. Ref from Dr. Jiang for abnormal stress test. Patient has hx of CABG at [facility] years ago. Stress test was ordered for pre-op clearance prior to back surgery. His son says he takes Plavix for TIA 3-4 years ago. Patient denies chest pain, SOB, palpitations, and lightheadedness/syncope. HPI: Rashi Alvarez is a 68 y.o. male With a [...] catheterization. I will not be in the Apprentice Instrument Technician for the next 3 to 4 [...] arise Dottie De León MD, MPH, FACC, [facility], [facility] Interventional Cardiology Pager Email: [email or web address] OFFICE VISIT Observed: 02/17/2024 2:00 PM Status: COMPLETED Source: [facility] [id number] Rashi Alvarez 03/1956 M Date Provider Department Center 02/17/2024 271-DOTTIE DE LEÓN [facility] [place] [facility] Family History Problem Relation Age of Onset No Known Problems Mother No Known Problems Father Family Status - Relation Status Age at Mother Father Level of Service:88761 NC OFFICE/OUTPATIENT NEW HIGH MDM 60 MINUTES HP Observed: 02/17/2024 2:00 PM Status: COMPLETED Source: [facility] Cardiology Clinic Note Chief Complaint: New patient here to establish care. Ref from Dr. Jiang for abnormal stress test. Patient has hx of CABG at [facility] years ago. Stress test was ordered for pre-op clearance prior to back surgery. His son says he takes Plavix for TIA 3-4 years ago. Patient denies chest pain, SOB, palpitations, and lightheadedness/syncope. HPI: Rashi Alvarez is a 68 y.o. male With a [...] catheterization. I will not be in the Apprentice Instrument Technician for the next 3 to 4 [...] problems arise Dottie De León MD, MPH, [facility], [facility], [facility] Interventional Cardiology Pager Email: [email or web address] ORDERS ONLY Observed: 02/17/2024 12:00 AM Status: COMPLETED Source: [facility] [id number] Rashi Alvarez 03/1956 M Date Provider Department Center 02/17/2024 DIRK JARA Family History Problem Relation Age of Onset No Known Problems Mother No Known Problems Father Family Status - Relation Status Age at Mother Father ALLERGIES DATE TYPE / CODE NAME / CODE REACTION SEVERITY SOURCE 11/29/2021 DRUG INGREDI~NON- CBORD/395837 003(SNOMED CT) METFORMIN [facility] 01/10/2021 DRUG INGREDI/4195 26882(SNOMED CT) CITALOPRAM Other~Unknown [facility] 01/10/2021 DRUG INGREDI~NON- CBORD/213187 003(SNOMED CT) SUCCINYLCHOLINE Anaphylaxis High [facility] 01/10/2021 DRUG INGREDI~NON- CBORD/983782 003(SNOMED CT) CITALOPRAM Other ( See Comments) [facility] 01/10/2021 SYSTEMIC~Addison d/814401480( SNOMED CT) OTHER Other ( See Comments) [facility] 03/04/2018 DRUG INGREDI~NON- CBORD/768486 003(SNOMED CT) AMITRIPTYLINE [facility] 03/04/2018 DRUG INGREDI~NON- CBORD/948697 003(SNOMED CT) FENTANYL [facility] 06/03/2017 DRUG INGREDI~NON- CBORD/113019 003(SNOMED CT) VENLAFAXINE Other ( See Comments) [facility] 12/26/2016 DRUG INGREDI/4195 67830(SNOMED CT) FENTANYL Unknown~Other [facility] 05/18/2014 DRUG INGREDI/4195 96889(SNOMED CT) AMITRIPTYLINE Other~Unknown [facility] 05/13/2014 DRUG INGREDI/4195 02442(SNOMED CT) VENLAFAXINE Other~Unknown [facility] 09/08/2004 DRUG INGREDI/4195 43685(SNOMED CT) SUCCINYLCHOLINE Anaphylaxis~Unknown ~Other High [facility] ENCOUNTERS ADMIT/DISCHARGE ACCOUNT NUMBER ADMITTING ENCOUNTER CLASS LOCATION SOURCE 02/02/20[id number] [facility] 01/12/2025/01/13/20 [id number] Ambulatory Building:[facility] 09/09/2024/09/09/19 [id number] [facility] 05/04/2024 [id number] Ambulatory Building:Un kn own [facility] 04/30/2024 [id number] Ambulatory Building:Un kn own [facility] 04/30/2024 [id number] Ambulatory Building:Un kn own [facility] 04/29/2024/05/04/20 24 [id number] Emergency Buildin 1Room: TELESTROKEBed : TELESTROKE BED [facility] 03/26/2024/03/26/20 24 [id number] Ambulatory Building:[facility] 02/25/2024 [id number] Ambulatory Building:[facility] 02/25/2024/02/25/20 24 [id number] GARRY CASTILLO Ambulatory Buildin Room: [facility] VASCULAR POOLBed: 2438 [facility] 02/17/2024/02/17/20 24 [id number] Ambulatory Building:[facility] PAYERS ENCOUNTER GUARANTOR PAYER SUBSCRIBER SOURCE 02/02/2025 Rashi HdezeDOB: [facility] [place] [address] Primary Insurance:MedicarePolicy Number: Effective Date:3861-26-68Eahu Name:BRADLEYPO Lianne [address], [place] [address]GV: Rashi MorseineeDOB: [id number] [facility] SERVICESNIKIAH[facility] [place] [address] [facility] 02/02/2025 Secondary Insurance:AnthemPolicy Number: Effective Date:4088-94-47Ioja Name:COMP [address] [address]KT: Mahin MorseineeDOB: [id number] [facility] [place] [address]Ywf: (HP) [facility] 02/02/2025 Tertiary Insurance:MedicaidPolicy Number: Effective Date:8034-48-35Ggxz Name:[facility] [address], [place] [address]LU: Rashi MorseineeDOB: [id number] [facility] [place] [address] [facility] 01/12/2025 Primary Insurance:MEDICAREPolicy Number: [id number] Date:1589-25-00Kvld Name:Medicare RASHI MORSEINEEDOB: [id number] [address] [address] [facility] 01/12/2025 Secondary Insura nce:[facility] MIPolicy Number: [id number] Date:2011-09-09 MAHIN MORSEINEEDOB: [id number] [place] [address] [facility] 05/04/2024 RASHI MORSEINEEDOB: [address] [address] [address], [place] [address]Qmf: (HP) Primary Insurance:[facility] HMO/PPO/TRUSTPolicy Number: [id number] Date:2011-09-09 MAHIN Diaz MOMINEEDOB: [id number], [place] [address]Lha: (HP) [facility] 05/04/2024 Secondary Insurance:MEDICARE PART A & BPolicy Number: [id number] Date:2021-09-09 RASHI Meehan MOMINEEDOB: [id number], [place] [address]Jkv: (HP) [facility] 04/30/2024 RASHI Meehan MOMINEEDOB: [facility] [address], [place] [address]Fdg: (HP) Primary Insurance:[facility] HMO/PPO/TRUSTPolicy Number: [id number] Date:2011-09-09 MAHIN Diaz MOMINEEDOB: [id number] [facility] [address], [place] [address]Fld: (HP) [facility] 04/30/2024 Secondary Insurance:MEDICARE PART A & BPolicy Number: [id number] Date:2021-09-09 RASHI Meehan MOMINEEDOB: [id number], [place] [address]Xwy: (HP) [facility] 04/30/2024 RASHI Meehan MOMINEEDOB: [facility] [address], [place] [address]Qwq: (HP) Primary Insurance:[facility] HMO/PPO/TRUSTPolicy Number: [id number] Date:2011-09-09 MAHIN Diaz MOMINEEDOB: [id number], [place] [address]Ttq: (HP) [facility] 04/30/2024 Secondary Insurance:MEDICARE PART A & BPolicy Number: [id number] Date:2021-09-09 RASHI MORSEINEEDOB: [id number], [place] [address]Hdp: (HP) [facility] 04/29/2024 RASHI MORSEINEEDOB: [address], [place] [address]Wba: (HP) Primary Insurance:[facility] TRADITIONALPolicy Number: [id number] Date:2009-09-092018-12-15 MAHIN MOMINEEDOB: [id number], [place] [address] [facility] 04/29/2024 Secondary [facility]ura nce[facility]O/TRUSTPolicy Number: [id number] Date:2011-09-09 MAHIN Diaz MOMINEEDOB: [id number], [place] [address]Hhb: (HP) [facility] 04/29/2024 Tertiary Insurance:MEDICARE PART A & BPolicy Number: [id number] Date:2021-09-09 RASHI MORSEINEEDOB: [id number], [place] [address]Jrm: (HP) [facility] 03/26/2024 Primary Insurance:MEDICAREPolicy Number: [id number] Date:1995-13-74Oqdm Name:Medicare RASHI MORSEINEEDOB: [id number] [place] [address] [facility] 03/26/2024 Secondary Insura nce:[employer] MIPolicy Number: [id number] Date:2011-09-09 AMHIN MOMINEEDOB: [id number] [place] [address] [facility] 02/25/2024 Primary Insurance:MEDICAREPolicy Number: [id number] Date:0569-36-85Cplt Name:Medicare RALPH J MOMINEEDOB: [id number] [place] [address] [facility] 02/25/2024 Secondary Insura nce:ARCADIO MIPolicy Number: [id number] Date:2011-09-09 MAHIN MOMINEEDOB: [id number] [place] [address] [facility] 02/25/2024 Primary Insurance:MEDICAREPolicy Number: [id number] Date:6634-45-59Qqyp Name:Medicare RALPH J MOMINEEDOB: [id number] [facility] [address] [place] [address], [facility]11 [facility] 02/25/2024 Secondary Insurance:[facility] OHIOPolicy Number: [id number] Date:2024-02-13 RASHI Meehan MOMINEEDOB: [id number] [facility] [address] [place] [address], [facility] 02/17/2024 Primary Insurance:MEDICAREPolicy Number: [id number] Date:1259-72-38Pogl Name:Medicare RASHI Meehan MOMINEEDOB: [id number] [place] [address], [place] [address] [facility] 02/17/2024 Secondary Insurance:[facility] OHIOPolicy Number: [id number] Date:2024-02-13 RASHI Meehan MOMINEEDOB: [id number] [place] [id number] [facility]
== END 2025-01-31 22:55 | disposition home or self-care (01) ==
PROVIDERS: Emergency Provider Student in an Organized Health Care Education/Training Program; PCP Family Medicine
DX: M25.561 Pain in right knee (principal); Z95.1 Presence of aortocoronary bypass graft; Z95.5 Presence of coronary angioplasty implant and graft; Z87.891 Personal history of nicotine dependence; Z63.4 Disappearance and death of family member
CPT/HCPCS: 73562; 99283